=== PATIENT | male | born 1965 | race Caucasian/White ===

== ENCOUNTER 2020-05-13 14:56 | Inpatient (IN) | payer MEDICARE, MEDICAID, SELFPAY ==
[2020-07-07 02:02] VITALS: BMI 47.2
[2020-07-08 07:00] VITALS: BMI 75.5
[2020-07-08 07:03] VITALS: PULSE 83; RESP 18; TEMP 36.6; O2SAT 96
[2020-07-08] MEDS: Divalproex Sodium ER 250 MG TAB.ER.24H 750 MG PO (09:16)
[2020-07-08] MEDS: Aspirin 81 MG TAB.CHEW PO (09:16)
[2020-07-08] MEDS: Cholecalciferol (Vitamin D3) 25 MCG TABLET PO (09:18)
[2020-07-08] MEDS: Docusate Sodium 100 MG CAPSULE PO ×2 (09:18→21:41)
[2020-07-08 09:23] VITALS: BP 139/80; PULSE 83
[2020-07-08] MEDS: Metoprolol Succinate ER 25 MG TAB.ER.24H 37.5 MG PO (09:23)
--- NOTE | 2020-07-08 10:37 | P.PNPSI_ITS ---
Assessment & Plan Assessment & Plan (1) Schizoaffective disorder: Status: Acute Code(s): F25.9 - Schizoaffective disorder, unspecified Assessment and Plan: Haines order changed consider Latuda Greater than 50% of the session was spent on counseling and/or coordination of care Subjective Subjective Reason For Visit: Schizoaffective Interim History: patient less agitated to irritable to go home to disorganized Haines order change Medication Compliance: Yes Mental Status Exam Mental Status Exam Patient Appearance: Unkempt Patient Orientation: Person and Place Level of Consciousness: Awake Patient Behavior: Suspicious, Restless and Distractible Mood Description: Labile and Apprehensive Affect Description: Suspicious, Hostile and Apprehensive Delusions: Paranoid Ideation Thought Process: Incoherent and Illogical Thought Content: Incoherent Judgement: Poor Diagnostics Vital Signs (24Hr): Vital Signs - 24 hr 07/08/20 07:03 07/08/20 09:23 Temperature 97.9 F Pulse Rate 83 83 Respiratory Rate 18 Blood Pressure 139/80 Pulse Oximetry 96 Body Mass Index 47.2 Labs Results: 07/08/20 11:00 07/01/20 08:14 Medications Medications Ambulatory Orders Medication Instructions Recorded albuterol sulfate 2 puff INHALATION Q6H PRN 07/07/20 aspirin 81 mg PO DAILY 07/07/20 atorvastatin 20 mg PO BEDTIME 07/07/20 cholecalciferol (vitamin D3) 25 mcg PO DAILY 07/07/20 docusate sodium 100 mg PO BID 07/07/20 lorazepam 1 mg PO BID 07/07/20 metoprolol succinate 25 mg PO BID 07/07/20 polyethylene glycol 3350 17 g PO DAILY 07/07/20 Allergies Allergies Allergy/AdvReac Type Severity Reaction Status Date / Time lithium [[place]] Allergy Severe TOXICITY Unverified 06/24/20 15:24 thiothixene Allergy Severe SWELLING Unverified 06/24/20 15:24 barium sulfate Allergy Intermediate NAUSEA & Unverified 06/24/20 15:24 [BARIUM SULFATE] VOMITING haloperidol Allergy Intermediate MUSCLE Unverified 06/24/20 15:24 TENSION IN LEGS fluphenazine Allergy Unknown UNKNOWN Unverified 06/24/20 15:24 gabapentin [From NEURONTIN] Allergy Unknown UNKNOWN Unverified 06/24/20 15:24 olanzapine [Zyprexa] AdvReac Unknown confusion Verified 03/30/20 00:00 Barium sulfate Allergy Unknown vomiting Uncoded 05/07/20 00:00 Benadryl Allergy Unknown Uncoded 03/30/20 00:00 benadryl Allergy Unknown urinary Uncoded 05/07/20 00:00 retention Benztropine Mesylate Allergy Unknown Uncoded 03/30/20 00:00 Fluphenazine HCl Allergy Unknown Uncoded 03/30/20 00:00 haldol Allergy Unknown aggitation Uncoded 05/07/20 00:00 lithium Allergy Unknown Uncoded 05/07/20 00:00 Navane Allergy Unknown Uncoded 03/30/20 00:00 navane Allergy Unknown oral Uncoded 05/07/20 00:00 swelling prolixen Allergy Unknown Uncoded 05/07/20 00:00
[2020-07-08 11:36] LABS: MANUAL DIFF FLAG NO
[2020-07-08 11:52] LABS: Basophils Percent Auto 0.5 % (0-2); Eosinophils Absolute Auto 0.1 X10*3/uL (0.0-0.4); Eosinophils Percent Auto 1.9 % (0-4); Hematocrit 43.8 % (42-52); Imm Gran Abs Auto 0.03 X10*3/uL (0.00-0.03); Imm Gran Pct Auto 0.5 % (0.0-0.4); Lymphocytes Absolute Auto 1.6 X10*3/uL (1.2-4.9); Lymphocytes Percent Auto 24.6 % (20-40); Mean Corpuscular Hemoglobin 27.5 pg (27.0-33.0); Mean Corpuscular Volume 86.1 fL (80-98); Mean Platelet Volume 12.7 fL (9.4-12.4); Monocytes Absolute Auto 0.8 X10*3/uL (0.1-1.2); Monocytes Percent Auto 11.9 % (2-11); Neutrophils Absolute Auto 3.9 X10*3/uL (2.0-8.3); Neutrophils Percent Auto 60.6 % (45-73); Platelet Count 120 X10*3/uL (160-400); Red Blood Count 5.09 X10*6/uL (4.60-5.80); Red Cell Distribution Width 14.5 % (11.0-16.0); White Blood Count 6.5 X10*3/uL (4.8-10.8)
[2020-07-08 18:00] VITALS: TEMP 36.4
[2020-07-08] MEDS: cloZAPine 100 MG TABLET 300 MG PO (21:41)
[2020-07-08] MEDS: Topiramate 25 MG TABLET 50 MG PO (21:41)
[2020-07-08] MEDS: Atorvastatin Calcium 20 MG TABLET PO (21:41)
[2020-07-08 21:42] VITALS: BP 108/58; PULSE 96
[2020-07-08] MEDS: Metoprolol Succinate ER 12.5 MG HALFTAB.ER.24H PO (21:42)
[2020-07-08] MEDS: QUEtiapine Fumarate 100 MG TABLET PO (21:42)
[2020-07-08 21:43] VITALS: BP 108/58; PULSE 96
[2020-07-08] MEDS: Metoprolol Succinate ER 25 MG TAB.ER.24H PO (21:43)
[2020-07-09 06:00] VITALS: BP 146/86; PULSE 80; RESP 16; TEMP 36; O2SAT 95
[2020-07-09 08:51] VITALS: BP 146/86; PULSE 80
[2020-07-09] MEDS: Aspirin 81 MG TAB.CHEW PO (08:51)
[2020-07-09] MEDS: Metoprolol Succinate ER 25 MG TAB.ER.24H PO ×2 (08:51→23:01)
[2020-07-09] MEDS: Cholecalciferol (Vitamin D3) 25 MCG TABLET PO (08:52)
[2020-07-09] MEDS: Docusate Sodium 100 MG CAPSULE PO ×2 (08:52→22:59)
[2020-07-09 08:53] VITALS: BP 146/86; PULSE 80
[2020-07-09] MEDS: Metoprolol Succinate ER 12.5 MG HALFTAB.ER.24H PO ×2 (08:53→23:00)
[2020-07-09] MEDS: Divalproex Sodium ER 250 MG TAB.ER.24H 750 MG PO (08:53)
--- NOTE | 2020-07-09 13:14 | PC.NURSE ---
PT STATES HE DOES NOT WANT FLU SHOT.
[2020-07-09] MEDS: Topiramate 25 MG TABLET 50 MG PO (22:59)
[2020-07-09] MEDS: Atorvastatin Calcium 20 MG TABLET PO (22:59)
[2020-07-09 23:00] VITALS: BP 118/75; PULSE 87
[2020-07-09] MEDS: QUEtiapine Fumarate 100 MG TABLET PO (23:00)
[2020-07-09] MEDS: cloZAPine 100 MG TABLET 300 MG PO (23:00)
[2020-07-09 23:01] VITALS: BP 118/75; PULSE 87
--- NOTE | 2020-07-09 23:44 | P.PNPSI_ITS ---
Assessment & Plan Assessment & Plan (1) Schizoaffective disorder: Status: Acute Code(s): F25.9 - Schizoaffective disorder, unspecified Assessment and Plan: patient on clozapine Haines order n ow changed can start low-dose Latuda but would follow EKG DMH and CHD trying to find alternative living situation [place] cm showing change with chronic Depakote Greater than 50% of the session was spent on counseling and/or coordination of care Informed Consent: does not understand Reason for contiued inpatient stay Substantial Risk for: harm to self, inability to function and rapid decompensation Subjective Subjective Reason For Visit: Schizoaffective Subjective Notes: Haines Order Interim History: patient continues to gradually improve able to have a discussion regarding behavior that is preventing discharge rule of CHD and DMH Medication Compliance: Yes Mental Status Exam Mental Status Exam Patient Appearance: Unkempt Patient Orientation: Person and Place Level of Consciousness: Awake Patient Behavior: Suspicious, Restless and Distractible Mood Description: Labile and Apprehensive Affect Description: Suspicious, Hostile and Apprehensive Delusions: Paranoid Ideation Thought Process: Incoherent and Illogical Judgement: Poor Diagnostics Vital Signs (24Hr): Vital Signs - 24 hr 07/09/20 06:00 07/09/20 08:51 07/09/20 08:53 Temperature 96.8 F Pulse Rate 80 80 80 Respiratory Rate 16 Blood Pressure 146/86 H 146/86 H 146/86 H Pulse Oximetry 95 07/09/20 23:00 07/09/20 23:01 Temperature Pulse Rate 87 87 Respiratory Rate Blood Pressure 118/75 118/75 Pulse Oximetry Body Mass Index 75.5 Labs Results: 07/08/20 11:00 07/01/20 08:14 Labs: Laboratory Results - last 48 hr 07/08/20 11:00 WBC 6.5 RBC 5.09 Hgb 14.0 Hct 43.8 MCV 86.1 MCH 27.5 MCHC 32.0 RDW 14.5 Plt Count 120 L MPV 12.7 H Immature Gran % (Auto) 0.5 H Neut % (Auto) 60.6 Lymph % (Auto) 24.6 [place] % (Auto) 11.9 H Eos % (Auto) 1.9 Baso % (Auto) 0.5 Neut # (Auto) 3.9 Lymph # (Auto) 1.6 [place] # (Auto) 0.8 Eos # (Auto) 0.1 Baso # (Auto) 0.0 Abs Immat Gran (auto) 0.03 Absolute Nucleated RBC 0.000 Nucleated RBC % (auto) 0.0 Medications Medications Current Medications Generic Name Dose Route Start Last Admin Trade Name Freq PRN Reason Stop Dose Admin Acetaminophen 650 mg 07/08/20 00:01 Acetaminophen 325 Mg Tablet PO Q6H PRN HEADACHE/PAIN.MILD (SCALE 1-3) Al Hydroxide/Mg Hydroxide 30 ml 07/08/20 00:01 Magnesium Hydrox/Alum Hydrox 30 Ml Oral.Susp PO Q6H PRN HEARTBURN/NAUSEA Albuterol Sulfate 2 puff 07/08/20 00:01 Albuterol Sulfate 90 Mcg 8 Gm Inhaler INHALE RQ6H PRN Wheezing Aspirin 81 mg 07/08/20 09:00 07/09/20 08:51 Aspirin 81 Mg Tab.Chew PO 81 mg DAILY OZZY Administration Atorvastatin Calcium 20 mg 07/08/20 21:00 07/09/20 22:59 Atorvastatin Calcium 20 Mg Tablet PO 20 mg BEDTIME OZZY Administration Clozapine 300 mg 07/08/20 21:00 07/09/20 23:00 Clozapine 100 Mg Tablet PO 300 mg BEDTIME OZZY Administration Divalproex Sodium 750 mg 07/08/20 09:00 07/09/20 08:53 Divalproex Sodium Er 250 Mg Tab.Er.24h PO 750 mg DAILY OZZY Administration Docusate Sodium 100 mg 07/08/20 08:30 07/09/20 22:59 Docusate Sodium 100 Mg Capsule PO 100 mg BID@ OZZY Administration Hydroxyzine HCl 25 mg 07/08/20 00:01 Hydroxyzine Hcl 25 Mg Tablet PO BEDTIME MRX1 PRN NIGHT TIME ANXIETY Magnesium Hydroxide 30 ml 07/08/20 00:01 Milk Of Magnesia 30 Ml Oral.Susp PO Q24H PRN Constipation Metoprolol Succinate 25 mg 07/08/20 09:45 07/09/20 23:01 Metoprolol Succinate Er 25 Mg Tab.Er.24h PO 25 mg BID@829,2099 OZZY Administration Protocol Metoprolol Succinate 12.5 mg 07/08/20 09:37 07/09/20 23:00 Metoprolol Succinate Er 12.5 Mg Halftab.Er.24h PO 12.5 mg BID@829,2099 [facility] Administration Protocol Nicotine Polacrilex 2 mg 07/08/20 00:01 Nicotine Polacrilex 2 Mg Gum BUCCAL Q2H PRN Nicotine Cravings Quetiapine Fumarate 100 mg 07/08/20 21:00 07/09/20 23:00 Quetiapine Fumarate 100 Mg Tablet PO 100 mg BEDTIME MRX1 OZZY Administration Quetiapine Fumarate 100 mg 07/08/20 00:01 Quetiapine Fumarate 100 Mg Tablet PO Q4H PRN anxiety/restlessness Topiramate 50 mg 07/08/20 21:00 07/09/20 22:59 Topiramate 25 Mg Tablet PO 50 mg BEDTIME OZZY Administration Trazodone HCl 50 mg 07/08/20 21:00 Trazodone Hcl 50 Mg Tablet PO BEDTIME MRX1 PRN Insomnia Vitamin D 25 mcg 07/08/20 09:00 07/09/20 08:52 Cholecalciferol (Vitamin D3) 25 Mcg Tablet PO 25 mcg DAILY OZZY Administration Allergies Allergies Allergy/AdvReac Type Severity Reaction Status Date / Time lithium [[place]] Allergy Severe TOXICITY Unverified 06/24/20 15:24 thiothixene Allergy Severe SWELLING Unverified 06/24/20 15:24 barium sulfate Allergy Intermediate NAUSEA & Unverified 06/24/20 15:24 [BARIUM SULFATE] VOMITING haloperidol Allergy Intermediate MUSCLE Unverified 06/24/20 15:24 TENSION IN LEGS fluphenazine Allergy Unknown UNKNOWN Unverified 06/24/20 15:24 gabapentin [From NEURONTIN] Allergy Unknown UNKNOWN Unverified 06/24/20 15:24 olanzapine [Zyprexa] AdvReac Unknown confusion Verified 03/30/20 00:00 Barium sulfate Allergy Unknown vomiting Uncoded 05/07/20 00:00 Benadryl Allergy Unknown Uncoded 03/30/20 00:00 benadryl Allergy Unknown urinary Uncoded 05/07/20 00:00 retention Benztropine Mesylate Allergy Unknown Uncoded 03/30/20 00:00 Fluphenazine HCl Allergy Unknown Uncoded 03/30/20 00:00 haldol Allergy Unknown aggitation Uncoded 05/07/20 00:00 lithium Allergy Unknown Uncoded 05/07/20 00:00 Navane Allergy Unknown Uncoded 03/30/20 00:00 navane Allergy Unknown oral Uncoded 05/07/20 00:00 swelling prolixen Allergy Unknown Uncoded 05/07/20 00:00
[2020-07-10 06:00] VITALS: BP 146/81; PULSE 77; RESP 20; TEMP 36.5
[2020-07-10] MEDS: Aspirin 81 MG TAB.CHEW PO (08:47)
[2020-07-10] MEDS: Divalproex Sodium ER 250 MG TAB.ER.24H 750 MG PO (08:47)
[2020-07-10] MEDS: Cholecalciferol (Vitamin D3) 25 MCG TABLET PO (08:48)
[2020-07-10] MEDS: Docusate Sodium 100 MG CAPSULE PO ×2 (08:48→23:45)
[2020-07-10 08:49] VITALS: BP 146/81; PULSE 77
[2020-07-10] MEDS: Metoprolol Succinate ER 25 MG TAB.ER.24H PO ×2 (08:49→23:47)
[2020-07-10 11:17] VITALS: BP 146/81; PULSE 77
[2020-07-10] MEDS: Metoprolol Succinate ER 12.5 MG HALFTAB.ER.24H PO ×2 (11:17→23:46)
--- NOTE | 2020-07-10 12:13 | P.PNPSI_ITS ---
Assessment & Plan Assessment & Plan (1) Schizoaffective disorder: Status: Acute Code(s): F25.9 - Schizoaffective disorder, unspecified Greater than 50% of the session was spent on counseling and/or coordination of care Subjective Subjective Date of Service: 07/10/20 Reason For Visit: Schizoaffective Subjective Notes: Conditional Voluntary Interim History: Doing better, more cooperative with staff, taking medications regularly- responds better if you are calm and not surprise him Medication Compliance: Yes Side effects from medications: No Attending Groups: No Review of Systems Acute medical concerns: No low platlets Medical Review of Systems: unchanged Review of Systems: no xs sedation no abnormal movements Mental Status Exam Mental Status Exam Narrative: pt lying in bed mildly disheveled grooming wearing daron Patient Appearance: Disheveled Patient Orientation: Person and Place Level of Consciousness: Awake and Alert Patient Behavior: Normal for Patient, Passive, Isolative, Good Eye Contact and Uncooperative (minimally cooperative- but polite) Hallucinations: None Delusions: Not Present Thought Process: Goal Oriented Thought Content: positive for Poverty of Content Judgement: Fair Diagnostics Vital Signs (24Hr): Vital Signs - 24 hr 07/09/20 23:00 07/09/20 23:01 07/10/20 06:00 Temperature 97.7 F Pulse Rate 87 87 77 Respiratory Rate 20 Blood Pressure 118/75 118/75 146/81 H 07/10/20 08:49 07/10/20 11:17 Temperature Pulse Rate 77 77 Respiratory Rate Blood Pressure 146/81 H 146/81 H Body Mass Index 75.5 Labs Results: 07/08/20 11:00 07/01/20 08:14 Labs: platelets low Medications Medications Current Medications Generic Name Dose Route Start Last Admin Trade Name Freq PRN Reason Stop Dose Admin Acetaminophen 650 mg 07/08/20 00:01 Acetaminophen 325 Mg Tablet PO Q6H PRN HEADACHE/PAIN.MILD (SCALE 1-3) Al Hydroxide/Mg Hydroxide 30 ml 07/08/20 00:01 Magnesium Hydrox/Alum Hydrox 30 Ml Oral.Susp PO Q6H PRN HEARTBURN/NAUSEA Albuterol Sulfate 2 puff 07/08/20 00:01 Albuterol Sulfate 90 Mcg 8 Gm Inhaler INHALE RQ6H PRN Wheezing Aspirin 81 mg 07/08/20 09:00 07/10/20 08:47 Aspirin 81 Mg Tab.Chew PO 81 mg DAILY OZZY Administration Atorvastatin Calcium 20 mg 07/08/20 21:00 07/09/20 22:59 Atorvastatin Calcium 20 Mg Tablet PO 20 mg BEDTIME OZZY Administration Clozapine 300 mg 07/08/20 21:00 07/09/20 23:00 Clozapine 100 Mg Tablet PO 300 mg BEDTIME OZZY Administration Divalproex Sodium 750 mg 07/08/20 09:00 07/10/20 08:47 Divalproex Sodium Er 250 Mg Tab.Er.24h PO 750 mg DAILY OZZY Administration Docusate Sodium 100 mg 07/08/20 08:30 07/10/20 08:48 Docusate Sodium 100 Mg Capsule PO 100 mg BID@829,2099 OZZY Administration Hydroxyzine HCl 25 mg 07/08/20 00:01 Hydroxyzine Hcl 25 Mg Tablet PO BEDTIME MRX1 PRN NIGHT TIME ANXIETY Magnesium Hydroxide 30 ml 07/08/20 00:01 Milk Of Magnesia 30 Ml Oral.Susp PO Q24H PRN Constipation Metoprolol Succinate 25 mg 07/08/20 09:45 07/10/20 08:49 Metoprolol Succinate Er 25 Mg Tab.Er.24h PO 25 mg BID@829,2099 [facility] Administration Protocol Metoprolol Succinate 12.5 mg 07/08/20 09:37 07/10/20 11:17 Metoprolol Succinate Er 12.5 Mg Halftab.Er.24h PO 12.5 mg BID@829,2099 [facility] Administration Protocol Nicotine Polacrilex 2 mg 07/08/20 00:01 Nicotine Polacrilex 2 Mg Gum BUCCAL Q2H PRN Nicotine Cravings Quetiapine Fumarate 100 mg 07/08/20 21:00 07/10/20 05:06 Quetiapine Fumarate 100 Mg Tablet PO Not Given BEDTIME MRX1 OZZY Quetiapine Fumarate 100 mg 07/08/20 00:01 Quetiapine Fumarate 100 Mg Tablet PO Q4H PRN anxiety/restlessness Topiramate 50 mg 07/08/20 21:00 07/09/20 22:59 Topiramate 25 Mg Tablet PO 50 mg BEDTIME OZZY Administration Trazodone HCl 50 mg 07/08/20 21:00 Trazodone Hcl 50 Mg Tablet PO BEDTIME MRX1 PRN Insomnia Vitamin D 25 mcg 07/08/20 09:00 07/10/20 08:48 Cholecalciferol (Vitamin D3) 25 Mcg Tablet PO 25 mcg DAILY OZZY Administration Allergies Allergies Allergy/AdvReac Type Severity Reaction Status Date / Time lithium [[place]] Allergy Severe TOXICITY Unverified 06/24/20 15:24 thiothixene Allergy Severe SWELLING Unverified 06/24/20 15:24 barium sulfate Allergy Intermediate NAUSEA & Unverified 06/24/20 15:24 [BARIUM SULFATE] VOMITING haloperidol Allergy Intermediate MUSCLE Unverified 06/24/20 15:24 TENSION IN LEGS fluphenazine Allergy Unknown UNKNOWN Unverified 06/24/20 15:24 gabapentin [From NEURONTIN] Allergy Unknown UNKNOWN Unverified 06/24/20 15:24 olanzapine [Zyprexa] AdvReac Unknown confusion Verified 03/30/20 00:00 Barium sulfate Allergy Unknown vomiting Uncoded 05/07/20 00:00 Benadryl Allergy Unknown Uncoded 03/30/20 00:00 benadryl Allergy Unknown urinary Uncoded 05/07/20 00:00 retention Benztropine Mesylate Allergy Unknown Uncoded 03/30/20 00:00 Fluphenazine HCl Allergy Unknown Uncoded 03/30/20 00:00 haldol Allergy Unknown aggitation Uncoded 05/07/20 00:00 lithium Allergy Unknown Uncoded 05/07/20 00:00 Navane Allergy Unknown Uncoded 03/30/20 00:00 navane Allergy Unknown oral Uncoded 05/07/20 00:00 swelling prolixen Allergy Unknown Uncoded 05/07/20 00:00
[2020-07-10] MEDS: QUEtiapine Fumarate 100 MG TABLET PO (23:45)
[2020-07-10] MEDS: Atorvastatin Calcium 20 MG TABLET PO (23:45)
[2020-07-10] MEDS: Topiramate 25 MG TABLET 50 MG PO (23:45)
[2020-07-10 23:46] VITALS: BP 115/67; PULSE 90
[2020-07-10] MEDS: cloZAPine 100 MG TABLET 300 MG PO (23:46)
[2020-07-10 23:47] VITALS: BP 115/67; PULSE 90
[2020-07-10 23:49] VITALS: BP 115/67; PULSE 90; TEMP 36.3
[2020-07-11 00:29] VITALS: TEMP 36.3
[2020-07-11 06:25] VITALS: BP 130/66; PULSE 80; RESP 18; TEMP 36.2; O2SAT 96
[2020-07-11] MEDS: Divalproex Sodium ER 250 MG TAB.ER.24H 750 MG PO (08:48)
[2020-07-11] MEDS: Aspirin 81 MG TAB.CHEW PO (08:48)
[2020-07-11 08:49] VITALS: BP 130/66; PULSE 80
[2020-07-11] MEDS: Metoprolol Succinate ER 25 MG TAB.ER.24H PO ×2 (08:49→22:45)
[2020-07-11] MEDS: Cholecalciferol (Vitamin D3) 25 MCG TABLET PO (08:49)
[2020-07-11] MEDS: Docusate Sodium 100 MG CAPSULE PO ×2 (08:49→22:46)
[2020-07-11 08:50] VITALS: BP 130/66; PULSE 80
[2020-07-11] MEDS: Metoprolol Succinate ER 12.5 MG HALFTAB.ER.24H PO ×2 (08:50→22:45)
[2020-07-11 11:56] LABS: Monocytes Absolute Auto 0.7 X10*3/uL (0.1-1.2)
[2020-07-11 11:58] LABS: Basophils Percent Auto 0.6 % (0-2); Eosinophils Absolute Auto 0.1 X10*3/uL (0.0-0.4); Eosinophils Percent Auto 1.7 % (0-4); Hematocrit 45.5 % (42-52); Hemoglobin 14.4 g/dl (14.0-18.0); Imm Gran Abs Auto 0.04 X10*3/uL (0.00-0.03); Imm Gran Pct Auto 0.6 % (0.0-0.4); Lymphocytes Absolute Auto 1.5 X10*3/uL (1.2-4.9); Lymphocytes Percent Auto 23.7 % (20-40); Mean Corpuscular HGB Conc 31.6 g/dl (31.0-36.0); Mean Corpuscular Hemoglobin 27.1 pg (27.0-33.0); Mean Corpuscular Volume 85.5 fL (80-98); Mean Platelet Volume 11.6 fL (9.4-12.4); Monocytes Percent Auto 10.7 % (2-11); Neutrophils Percent Auto 62.7 % (45-73); Platelet Count 133 X10*3/uL (160-400); Red Blood Count 5.32 X10*6/uL (4.60-5.80); Red Cell Distribution Width 14.5 % (11.0-16.0); White Blood Count 6.3 X10*3/uL (4.8-10.8)
[2020-07-11 11:59] LABS: MANUAL DIFF FLAG NO
--- NOTE | 2020-07-11 17:00 | P.PNPSI_ITS ---
Assessment & Plan Assessment & Plan (1) Schizoaffective disorder: Status: Acute Code(s): F25.9 - Schizoaffective disorder, unspecified Greater than 50% of the session was spent on counseling and/or coordination of care Subjective Subjective Date of Service: 07/11/20 Reason For Visit: Schizoaffective Subjective Notes: Conditional Voluntary Interim History: Pt reports he is fine, and dismisses me as soon as I don't have information about him about dc plan, he says he is taking his depakote: even if he isn't supposed to be on it can't say why he isn't supposed to also agreed to blood draw today - otherwise was mute with nursing for the last day- angry about fall thru of dc plan with CHD. cooperative Medication Compliance: Yes Side effects from medications: No Attending Groups: No Review of Systems Acute medical concerns: No Medical Review of Systems: unchanged Mental Status Exam Mental Status Exam Narrative: somewhat disheveled limited engagement in mileu, Patient Appearance: Unkempt Patient Orientation: Person and Place Level of Consciousness: Awake and Alert Patient Behavior: Normal for Patient Mood Description: Apathetic Affect Description: Apathetic Patient Cognition Impaired: No Ability to Follow Directions: Fair Speech Pattern: Normal for Patient and Mumbled Thought Process: Distracted Thought Content: positive for Poverty of Content Judgement: Poor Diagnostics Vital Signs (24Hr): Vital Signs - 24 hr 07/10/20 23:46 07/10/20 23:47 07/10/20 23:49 Temperature 97.4 F Pulse Rate 90 90 90 Respiratory Rate Blood Pressure 115/67 115/67 115/67 Pulse Oximetry 07/11/20 00:29 07/11/20 06:25 07/11/20 08:49 Temperature 97.4 F 97.2 F Pulse Rate 80 80 Respiratory Rate 18 Blood Pressure 130/66 130/66 Pulse Oximetry 96 07/11/20 08:50 Temperature Pulse Rate 80 Respiratory Rate Blood Pressure 130/66 Pulse Oximetry Body Mass Index Labs Results: 07/11/20 11:39 07/01/20 08:14 Labs: Laboratory Results - last 48 hr 07/11/20 11:39 WBC 6.3 RBC 5.32 Hgb 14.4 Hct 45.5 MCV 85.5 MCH 27.1 MCHC 31.6 RDW 14.5 Plt Count 133 L MPV 11.6 Immature Gran % (Auto) 0.6 H Neut % (Auto) 62.7 Lymph % (Auto) 23.7 [place] % (Auto) 10.7 Eos % (Auto) 1.7 Baso % (Auto) 0.6 Neut # (Auto) 4.0 Lymph # (Auto) 1.5 [place] # (Auto) 0.7 Eos # (Auto) 0.1 Baso # (Auto) 0.0 Abs Immat Gran (auto) 0.04 H Absolute Nucleated RBC 0.000 Nucleated RBC % (auto) 0.0 Medications Medications Current Medications Generic Name Dose Route Start Last Admin Trade Name Freq PRN Reason Stop Dose Admin Acetaminophen 650 mg 07/08/20 00:01 Acetaminophen 325 Mg Tablet PO Q6H PRN HEADACHE/PAIN.MILD (SCALE 1-3) Al Hydroxide/Mg Hydroxide 30 ml 07/08/20 00:01 Magnesium Hydrox/Alum Hydrox 30 Ml Oral.Susp PO Q6H PRN HEARTBURN/NAUSEA Albuterol Sulfate 2 puff 07/08/20 00:01 Albuterol Sulfate 90 Mcg 8 Gm Inhaler INHALE RQ6H PRN Wheezing Aspirin 81 mg 07/08/20 09:00 07/11/20 08:48 Aspirin 81 Mg Tab.Chew PO 81 mg DAILY OZZY Administration Atorvastatin Calcium 20 mg 07/08/20 21:00 07/10/20 23:45 Atorvastatin Calcium 20 Mg Tablet PO 20 mg BEDTIME OZZY Administration Clozapine 300 mg 07/08/20 21:00 07/10/20 23:46 Clozapine 100 Mg Tablet PO 300 mg BEDTIME OZZY Administration Divalproex Sodium 750 mg 07/08/20 09:00 07/11/20 08:48 Divalproex Sodium Er 250 Mg Tab.Er.24h PO 750 mg DAILY OZZY Administration Docusate Sodium 100 mg 07/08/20 08:30 07/11/20 08:49 Docusate Sodium 100 Mg Capsule PO 100 mg BID@0830,2100 OZZY Administration Hydroxyzine HCl 25 mg 07/08/20 00:01 Hydroxyzine Hcl 25 Mg Tablet PO BEDTIME MRX1 PRN NIGHT TIME ANXIETY Magnesium Hydroxide 30 ml 07/08/20 00:01 Milk Of Magnesia 30 Ml Oral.Susp PO Q24H PRN Constipation Metoprolol Succinate 25 mg 07/08/20 09:45 07/11/20 08:49 Metoprolol Succinate Er 25 Mg Tab.Er.24h PO 25 mg BID@0830,2100 OZZY Administration Protocol Metoprolol Succinate 12.5 mg 07/08/20 09:37 07/11/20 08:50 Metoprolol Succinate Er 12.5 Mg Halftab.Er.24h PO 12.5 mg BID@0830,2100 OZZY Administration Protocol Nicotine Polacrilex 2 mg 07/08/20 00:01 Nicotine Polacrilex 2 Mg Gum BUCCAL Q2H PRN Nicotine Cravings Quetiapine Fumarate 100 mg 07/08/20 21:00 07/11/20 09:02 Quetiapine Fumarate 100 Mg Tablet PO Not Given BEDTIME MRX1 OZZY Quetiapine Fumarate 100 mg 07/08/20 00:01 Quetiapine Fumarate 100 Mg Tablet PO Q4H PRN anxiety/restlessness Topiramate 50 mg 07/08/20 21:00 07/10/20 23:45 Topiramate 25 Mg Tablet PO 50 mg BEDTIME OZZY Administration Trazodone HCl 50 mg 07/08/20 21:00 Trazodone Hcl 50 Mg Tablet PO BEDTIME MRX1 PRN Insomnia Vitamin D 25 mcg 07/08/20 09:00 07/11/20 08:49 Cholecalciferol (Vitamin D3) 25 Mcg Tablet PO 25 mcg DAILY OZZY Administration Allergies Allergies Allergy/AdvReac Type Severity Reaction Status Date / Time lithium [[place]] Allergy Severe TOXICITY Unverified 06/24/20 15:24 thiothixene Allergy Severe SWELLING Unverified 06/24/20 15:24 barium sulfate Allergy Intermediate NAUSEA & Unverified 06/24/20 15:24 [BARIUM SULFATE] VOMITING haloperidol Allergy Intermediate MUSCLE Unverified 06/24/20 15:24 TENSION IN LEGS fluphenazine Allergy Unknown UNKNOWN Unverified 06/24/20 15:24 gabapentin [From NEURONTIN] Allergy Unknown UNKNOWN Unverified 06/24/20 15:24 olanzapine [Zyprexa] AdvReac Unknown confusion Verified 03/30/20 00:00 Barium sulfate Allergy Unknown vomiting Uncoded 05/07/20 00:00 Benadryl Allergy Unknown Uncoded 03/30/20 00:00 benadryl Allergy Unknown urinary Uncoded 05/07/20 00:00 retention Benztropine Mesylate Allergy Unknown Uncoded 03/30/20 00:00 Fluphenazine HCl Allergy Unknown Uncoded 03/30/20 00:00 haldol Allergy Unknown aggitation Uncoded 05/07/20 00:00 lithium Allergy Unknown Uncoded 05/07/20 00:00 Navane Allergy Unknown Uncoded 03/30/20 00:00 navane Allergy Unknown oral Uncoded 05/07/20 00:00 swelling prolixen Allergy Unknown Uncoded 05/07/20 00:00
[2020-07-11] MEDS: QUEtiapine Fumarate 100 MG TABLET PO (22:44)
[2020-07-11] MEDS: cloZAPine 100 MG TABLET 300 MG PO (22:44)
[2020-07-11 22:45] VITALS: BP 143/95; PULSE 75
[2020-07-11] MEDS: Atorvastatin Calcium 20 MG TABLET PO (22:45)
[2020-07-11] MEDS: Topiramate 25 MG TABLET 50 MG PO (22:45)
[2020-07-12 06:30] VITALS: BP 144/74; PULSE 77; RESP 18; TEMP 36.2
[2020-07-12 09:16] VITALS: BP 144/74; PULSE 77
[2020-07-12] MEDS: Metoprolol Succinate ER 25 MG TAB.ER.24H PO ×2 (09:16→22:57)
[2020-07-12] MEDS: Aspirin 81 MG TAB.CHEW PO (09:16)
[2020-07-12 09:17] VITALS: BP 144/74; PULSE 77
[2020-07-12] MEDS: Cholecalciferol (Vitamin D3) 25 MCG TABLET PO (09:17)
[2020-07-12] MEDS: Divalproex Sodium ER 250 MG TAB.ER.24H 750 MG PO (09:17)
[2020-07-12] MEDS: Docusate Sodium 100 MG CAPSULE PO ×2 (09:17→22:53)
[2020-07-12] MEDS: Metoprolol Succinate ER 12.5 MG HALFTAB.ER.24H PO ×2 (09:17→22:53)
--- NOTE | 2020-07-12 21:53 | HO.PSYCHPN ---
Assessment & Plan Assessment & Plan (1) Schizoaffective disorder: Status: Acute Code(s): F25.9 - Schizoaffective disorder, unspecified Assessment and Plan: the patient seems more stable on Depakote now Greater than 50% of the session was spent on counseling and/or coordination of care Subjective Subjective Reason For Visit: Schizoaffective Subjective Notes: Haines Order Interim History: patient calmer not combative Medication Compliance: Yes Side effects from medications: Yes Mental Status Exam Mental Status Exam Narrative: somewhat disheveled limited engagement in [employer], Patient Appearance: Unkempt Patient Orientation: Person and Place Level of Consciousness: Awake and Alert Patient Behavior: Normal for Patient Mood Description: Apathetic Affect Description: Apathetic Patient Cognition Impaired: No Ability to Follow Directions: Fair Speech Pattern: Normal for Patient and Mumbled Thought Process: Distracted Thought Content: positive for Poverty of Content Judgement: Poor Diagnostics Vital Signs (24Hr): Vital Signs - 24 hr 07/11/20 22:45 07/12/20 06:30 07/12/20 09:16 Temperature 97.2 F Pulse Rate 75 77 77 Respiratory Rate 18 Blood Pressure 143/95 H 144/74 H 144/74 H 07/12/20 09:17 Temperature Pulse Rate 77 Respiratory Rate Blood Pressure 144/74 H Body Mass Index 75.5 Labs Results: 07/11/20 11:39 07/01/20 08:14 Labs: Laboratory Results - last 48 hr 07/11/20 11:39 WBC 6.3 RBC 5.32 Hgb 14.4 Hct 45.5 MCV 85.5 MCH 27.1 MCHC 31.6 RDW 14.5 Plt Count 133 L MPV 11.6 Immature Gran % (Auto) 0.6 H Neut % (Auto) 62.7 Lymph % (Auto) 23.7 [place] % (Auto) 10.7 Eos % (Auto) 1.7 Baso % (Auto) 0.6 Neut # (Auto) 4.0 Lymph # (Auto) 1.5 [place] # (Auto) 0.7 Eos # (Auto) 0.1 Baso # (Auto) 0.0 Abs Immat Gran (auto) 0.04 H Absolute Nucleated RBC 0.000 Nucleated RBC % (auto) 0.0 Medications Medications Current Medications Generic Name Dose Route Start Last Admin Trade Name Freq PRN Reason Stop Dose Admin Acetaminophen 650 mg 07/08/20 00:01 Acetaminophen 325 Mg Tablet PO Q6H PRN HEADACHE/PAIN.MILD (SCALE 1-3) Al Hydroxide/Mg Hydroxide 30 ml 07/08/20 00:01 Magnesium Hydrox/Alum Hydrox 30 Ml Oral.Susp PO Q6H PRN HEARTBURN/NAUSEA Albuterol Sulfate 2 puff 07/08/20 00:01 Albuterol Sulfate 90 Mcg 8 Gm Inhaler INHALE RQ6H PRN Wheezing Aspirin 81 mg 07/08/20 09:00 07/12/20 09:16 Aspirin 81 Mg Tab.Chew PO 81 mg DAILY OZZY Administration Atorvastatin Calcium 20 mg 07/08/20 21:00 07/11/20 22:45 Atorvastatin Calcium 20 Mg Tablet PO 20 mg BEDTIME OZZY Administration Clozapine 300 mg 07/08/20 21:00 07/11/20 22:44 Clozapine 100 Mg Tablet PO 300 mg BEDTIME OZZY Administration Divalproex Sodium 750 mg 07/08/20 09:00 07/12/20 09:17 Divalproex Sodium Er 250 Mg Tab.Er.24h PO 750 mg DAILY OZZY Administration Docusate Sodium 100 mg 07/08/20 08:30 07/12/20 09:17 Docusate Sodium 100 Mg Capsule PO 100 mg BID@ OZZY Administration Hydroxyzine HCl 25 mg 07/08/20 00:01 Hydroxyzine Hcl 25 Mg Tablet PO BEDTIME MRX1 PRN NIGHT TIME ANXIETY Magnesium Hydroxide 30 ml 07/08/20 00:01 Milk Of Magnesia 30 Ml Oral.Susp PO Q24H PRN Constipation Metoprolol Succinate 25 mg 07/08/20 09:45 07/12/20 09:16 Metoprolol Succinate Er 25 Mg Tab.Er.24h PO 25 mg BID@ [facility] Administration Protocol Metoprolol Succinate 12.5 mg 07/08/20 09:37 07/12/20 09:17 Metoprolol Succinate Er 12.5 Mg Halftab.Er.24h PO 12.5 mg BID@ [facility] Administration Protocol Nicotine Polacrilex 2 mg 07/08/20 00:01 Nicotine Polacrilex 2 Mg Gum BUCCAL Q2H PRN Nicotine Cravings Quetiapine Fumarate 100 mg 07/08/20 21:00 07/12/20 05:58 Quetiapine Fumarate 100 Mg Tablet PO Not Given BEDTIME MRX1 OZZY Quetiapine Fumarate 100 mg 07/08/20 00:01 Quetiapine Fumarate 100 Mg Tablet PO Q4H PRN anxiety/restlessness Topiramate 50 mg 07/08/20 21:00 07/11/20 22:45 Topiramate 25 Mg Tablet PO 50 mg BEDTIME OZZY Administration Trazodone HCl 50 mg 07/08/20 21:00 Trazodone Hcl 50 Mg Tablet PO BEDTIME MRX1 PRN Insomnia Vitamin D 25 mcg 07/08/20 09:00 07/12/20 09:17 Cholecalciferol (Vitamin D3) 25 Mcg Tablet PO 25 mcg DAILY OZZY Administration Allergies Allergies Allergy/AdvReac Type Severity Reaction Status Date / Time lithium [[place]] Allergy Severe TOXICITY Unverified 06/24/20 15:24 thiothixene Allergy Severe SWELLING Unverified 06/24/20 15:24 barium sulfate Allergy Intermediate NAUSEA & Unverified 06/24/20 15:24 [BARIUM SULFATE] VOMITING haloperidol Allergy Intermediate MUSCLE Unverified 06/24/20 15:24 TENSION IN LEGS fluphenazine Allergy Unknown UNKNOWN Unverified 06/24/20 15:24 gabapentin [From NEURONTIN] Allergy Unknown UNKNOWN Unverified 06/24/20 15:24 olanzapine [Zyprexa] AdvReac Unknown confusion Verified 03/30/20 00:00 Barium sulfate Allergy Unknown vomiting Uncoded 05/07/20 00:00 Benadryl Allergy Unknown Uncoded 03/30/20 00:00 benadryl Allergy Unknown urinary Uncoded 05/07/20 00:00 retention Benztropine Mesylate Allergy Unknown Uncoded 03/30/20 00:00 Fluphenazine HCl Allergy Unknown Uncoded 03/30/20 00:00 haldol Allergy Unknown aggitation Uncoded 05/07/20 00:00 lithium Allergy Unknown Uncoded 05/07/20 00:00 Navane Allergy Unknown Uncoded 03/30/20 00:00 navane Allergy Unknown oral Uncoded 05/07/20 00:00 swelling prolixen Allergy Unknown Uncoded 05/07/20 00:00
[2020-07-12] MEDS: cloZAPine 100 MG TABLET 300 MG PO (22:52)
[2020-07-12 22:53] VITALS: BP 143/87; PULSE 75
[2020-07-12] MEDS: QUEtiapine Fumarate 100 MG TABLET PO (22:53)
[2020-07-12] MEDS: Topiramate 25 MG TABLET 50 MG PO (22:53)
[2020-07-12] MEDS: Atorvastatin Calcium 20 MG TABLET PO (22:53)
[2020-07-12 22:57] VITALS: BP 143/87; PULSE 75; TEMP 37.1
[2020-07-13 06:40] VITALS: BP 133/69; PULSE 78; RESP 18; TEMP 36.5
[2020-07-13] MEDS: Cholecalciferol (Vitamin D3) 25 MCG TABLET PO (10:53)
[2020-07-13] MEDS: Divalproex Sodium ER 250 MG TAB.ER.24H 750 MG PO (10:53)
[2020-07-13] MEDS: Aspirin 81 MG TAB.CHEW PO (10:53)
[2020-07-13 10:54] VITALS: BP 133/64; PULSE 78
[2020-07-13] MEDS: Docusate Sodium 100 MG CAPSULE PO ×2 (10:54→19:59)
[2020-07-13] MEDS: Metoprolol Succinate ER 25 MG TAB.ER.24H PO ×2 (10:54→20:00)
[2020-07-13 10:56] VITALS: BP 133/64; PULSE 78
[2020-07-13] MEDS: Metoprolol Succinate ER 12.5 MG HALFTAB.ER.24H PO ×2 (10:56→20:02)
[2020-07-13 18:00] VITALS: BP 124/69; PULSE 80; TEMP 36.7
[2020-07-13] MEDS: Topiramate 25 MG TABLET 50 MG PO (19:57)
[2020-07-13] MEDS: Atorvastatin Calcium 20 MG TABLET PO (19:59)
[2020-07-13] MEDS: QUEtiapine Fumarate 100 MG TABLET PO (19:59)
[2020-07-13 20:00] VITALS: BP 124/69; PULSE 80
[2020-07-13 20:02] VITALS: BP 124/69; PULSE 80
[2020-07-13] MEDS: cloZAPine 100 MG TABLET 300 MG PO (20:02)
--- NOTE | 2020-07-13 21:24 | P.PNPSI_ITS ---
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) 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 Assessment and Plan: CONTINUE CLOZAPINE I HAVE MAINTAIN 300 MG DOSE Greater than 50% of the session was spent on counseling and/or coordination of care Subjective Subjective Reason For Visit: Schizoaffective Subjective Notes: Haines Order and Conditional Voluntary Interim History: PATIENT HAS BEEN REFERRED TO RESPITE HE IS CALMER LESS AGITATED AND IS ON CLOZAPINE AND DEPAKOTE I HAVE NOT ADDED IN LATUDA GIVEN HIS PRESENT S TABILITY OVER THE PAST FEW DAYS Medication Compliance: Yes Side effects from medications: Yes Attending Groups: No Mental Status Exam Mental Status Exam Narrative: somewhat disheveled limited engagement in [employer], Patient Appearance: Unkempt Patient Orientation: Person and Place Level of Consciousness: Awake and Alert Patient Behavior: Normal for Patient Mood Description: Apathetic Affect Description: Apathetic Patient Cognition Impaired: No Ability to Follow Directions: Fair Speech Pattern: Normal for Patient and Mumbled Thought Process: Distracted Thought Content: positive for Poverty of Content Judgement: Poor Diagnostics Vital Signs (24Hr): Vital Signs - 24 hr 07/12/20 22:53 07/12/20 22:57 07/13/20 06:40 Temperature 98.7 F 97.7 F Pulse Rate 75 75 78 Respiratory Rate 18 Blood Pressure 143/87 H 143/87 H 133/69 07/13/20 10:54 07/13/20 10:56 07/13/20 20:00 Temperature Pulse Rate 78 78 80 Respiratory Rate Blood Pressure 133/64 133/64 124/69 07/13/20 20:02 Temperature Pulse Rate 80 Respiratory Rate Blood Pressure 124/69 Body Mass Index 75.5 Labs Results: 07/14/20 10:04 07/01/20 08:14 Medications Medications Current Medications Generic Name Dose Route Start Last Admin Trade Name Freq PRN Reason Stop Dose Admin Acetaminophen 650 mg 07/08/20 00:01 Acetaminophen 325 Mg Tablet PO Q6H PRN HEADACHE/PAIN.MILD (SCALE 1-3) Al Hydroxide/Mg Hydroxide 30 ml 07/08/20 00:01 Magnesium Hydrox/Alum Hydrox 30 Ml Oral.Susp PO Q6H PRN HEARTBURN/NAUSEA Albuterol Sulfate 2 puff 07/08/20 00:01 Albuterol Sulfate 90 Mcg 8 Gm Inhaler INHALE RQ6H PRN Wheezing Aspirin 81 mg 07/08/20 09:00 07/13/20 10:53 Aspirin 81 Mg Tab.Chew PO 81 mg DAILY OZZY Administration Atorvastatin Calcium 20 mg 07/08/20 21:00 07/13/20 19:59 Atorvastatin Calcium 20 Mg Tablet PO 20 mg BEDTIME OZZY Administration Clozapine 300 mg 07/08/20 21:00 07/13/20 20:02 Clozapine 100 Mg Tablet PO 300 mg BEDTIME OZZY Administration Divalproex Sodium 750 mg 07/08/20 09:00 07/13/20 10:53 Divalproex Sodium Er 250 Mg Tab.Er.24h PO 750 mg DAILY OZZY Administration Docusate Sodium 100 mg 07/08/20 08:30 07/13/20 19:59 Docusate Sodium 100 Mg Capsule PO 100 mg BID@0830,2100 OZZY Administration Hydroxyzine HCl 25 mg 07/08/20 00:01 Hydroxyzine Hcl 25 Mg Tablet PO BEDTIME MRX1 PRN NIGHT TIME ANXIETY Magnesium Hydroxide 30 ml 07/08/20 00:01 Milk Of Magnesia 30 Ml Oral.Susp PO Q24H PRN Constipation Metoprolol Succinate 25 mg 07/08/20 09:45 07/13/20 20:00 Metoprolol Succinate Er 25 Mg Tab.Er.24h PO 25 mg BID@0830,2100 OZZY Administration Protocol Metoprolol Succinate 12.5 mg 07/08/20 09:37 07/13/20 20:02 Metoprolol Succinate Er 12.5 Mg Halftab.Er.24h PO 12.5 mg BID@0830,2100 [facility] Administration Protocol Nicotine Polacrilex 2 mg 07/08/20 00:01 Nicotine Polacrilex 2 Mg Gum BUCCAL Q2H PRN Nicotine Cravings Quetiapine Fumarate 100 mg 07/08/20 21:00 07/13/20 19:59 Quetiapine Fumarate 100 Mg Tablet PO 100 mg BEDTIME MRX1 OZZY Administration Quetiapine Fumarate 100 mg 07/08/20 00:01 Quetiapine Fumarate 100 Mg Tablet PO Q4H PRN anxiety/restlessness Topiramate 50 mg 07/08/20 21:00 07/13/20 19:57 Topiramate 25 Mg Tablet PO 50 mg BEDTIME OZZY Administration Trazodone HCl 50 mg 07/08/20 21:00 Trazodone Hcl 50 Mg Tablet PO BEDTIME MRX1 PRN Insomnia Vitamin D 25 mcg 07/08/20 09:00 07/13/20 10:53 Cholecalciferol (Vitamin D3) 25 Mcg Tablet PO 25 mcg DAILY OZZY Administration Allergies Allergies Allergy/AdvReac Type Severity Reaction Status Date / Time lithium [[place]] Allergy Severe TOXICITY Unverified 06/24/20 15:24 thiothixene Allergy Severe SWELLING Unverified 06/24/20 15:24 barium sulfate Allergy Intermediate NAUSEA & Unverified 06/24/20 15:24 [BARIUM SULFATE] VOMITING haloperidol Allergy Intermediate MUSCLE Unverified 06/24/20 15:24 TENSION IN LEGS fluphenazine Allergy Unknown UNKNOWN Unverified 06/24/20 15:24 gabapentin [From NEURONTIN] Allergy Unknown UNKNOWN Unverified 06/24/20 15:24 olanzapine [Zyprexa] AdvReac Unknown confusion Verified 03/30/20 00:00 Barium sulfate Allergy Unknown vomiting Uncoded 05/07/20 00:00 Benadryl Allergy Unknown Uncoded 03/30/20 00:00 benadryl Allergy Unknown urinary Uncoded 05/07/20 00:00 retention Benztropine Mesylate Allergy Unknown Uncoded 03/30/20 00:00 Fluphenazine HCl Allergy Unknown Uncoded 03/30/20 00:00 haldol Allergy Unknown aggitation Uncoded 05/07/20 00:00 lithium Allergy Unknown Uncoded 05/07/20 00:00 Navane Allergy Unknown Uncoded 03/30/20 00:00 navane Allergy Unknown oral Uncoded 05/07/20 00:00 swelling prolixen Allergy Unknown Uncoded 05/07/20 00:00
[2020-07-14 06:05] VITALS: BP 130/78; PULSE 77; RESP 18; TEMP 36.2
[2020-07-14 09:11] VITALS: BP 130/78; PULSE 77
[2020-07-14] MEDS: Metoprolol Succinate ER 12.5 MG HALFTAB.ER.24H PO (09:11)
[2020-07-14] MEDS: Docusate Sodium 100 MG CAPSULE PO (09:11)
[2020-07-14 09:13] VITALS: BP 137/74; PULSE 77
[2020-07-14] MEDS: Metoprolol Succinate ER 25 MG TAB.ER.24H PO (09:13)
[2020-07-14] MEDS: Divalproex Sodium ER 250 MG TAB.ER.24H 750 MG PO (09:13)
[2020-07-14] MEDS: Cholecalciferol (Vitamin D3) 25 MCG TABLET PO (09:14)
[2020-07-14] MEDS: Aspirin 81 MG TAB.CHEW PO (09:14)
[2020-07-14 10:18] LABS: MANUAL DIFF FLAG NO
[2020-07-14 10:29] LABS: Basophils Percent Auto 0.4 % (0-2); Eosinophils Absolute Auto 0.1 X10*3/uL (0.0-0.4); Eosinophils Percent Auto 1.3 % (0-4); Hematocrit 45.9 % (42-52); Hemoglobin 14.4 g/dl (14.0-18.0); Imm Gran Abs Auto 0.02 X10*3/uL (0.00-0.03); Imm Gran Pct Auto 0.4 % (0.0-0.4); Lymphocytes Absolute Auto 1.1 X10*3/uL (1.2-4.9); Lymphocytes Percent Auto 21.2 % (20-40); Mean Corpuscular HGB Conc 31.4 g/dl (31.0-36.0); Mean Platelet Volume 11.9 fL (9.4-12.4); Monocytes Absolute Auto 0.4 X10*3/uL (0.1-1.2); Monocytes Percent Auto 7.4 % (2-11); Neutrophils Absolute Auto 3.7 X10*3/uL (2.0-8.3); Neutrophils Percent Auto 69.3 % (45-73); Platelet Count 124 X10*3/uL (160-400); Red Blood Count 5.34 X10*6/uL (4.60-5.80); Red Cell Distribution Width 14.6 % (11.0-16.0); White Blood Count 5.3 X10*3/uL (4.8-10.8)
--- NOTE | 2020-07-14 13:04 | P.DS_ITS ---
DS: Providers Provider Date of admission: 05/13/20 14:56 Primary care physician: Regan Hogue MD Consults: 07/07/20 02:14 Consult to Cardiology Routine Consulting Provider: Manuel Arriaza Reason for consultation: Hx elevated QTC, low ejection. Advise re: restart latuda 07/07/20 02:18 Consult to Psychiatry Routine Consulting Provider: Anastasiia Sprague Reason for consultation: Med management 07/07/20 02:19 Consult to Crisis Routine DS: Diagnosis Discharge Diagnosis (1) Schizoaffective disorder: Status: Acute (2) detention current use of clozapine: Status: Acute Discharge Plan Discharge Anticipated Discharge Date/Time: 07/14/20 13:20 Patient Disposition: Xfer Other Referrals: Freeman Cerna (psychiatrist) [Other] - 08/20/20 10:00 am Regan Hogue MD [Primary Care Provider] - (Dr Hogue office called, they stated they will call pt with appointment, pt is currently on a waitlist) Discharge Medications: New clozapine 100 mg Tablet 300 mg PO BEDTIME 30 Days Qty: 90 RF: 0 aspirin 81 mg Tablet,Chewable 81 mg PO DAILY 30 Days Qty: 30 RF: 0 divalproex 250 mg Tablet Extended Release 24 Hr 750 mg PO DAILY 30 Days Qty: 90 RF: 0 topiramate 25 mg Tablet 50 mg PO BEDTIME 30 Days Qty: 30 RF: 0 docusate sodium 100 mg Capsule 100 mg PO BID@0830,2100 30 Days Qty: 60 RF: 0 Continued cholecalciferol (vitamin D3) 25 mcg (1,000 unit) Capsule 25 mcg PO DAILY RF: 0 atorvastatin 20 mg Tablet 20 mg PO BEDTIME 30 Days Qty: 30 RF: 0 Discontinued docusate sodium 100 mg Capsule 100 mg PO BID RF: 0 aspirin 81 mg Tablet 81 mg PO DAILY RF: 0 metoprolol succinate 25 mg Tablet Extended Release 24 Hr 25 mg PO BID RF: 0 lorazepam 1 mg Tablet 1 mg PO BID RF: 0 albuterol sulfate 90 mcg/actuation Hfa Aerosol Inhaler 2 puff INHALATION Q6H PRN (Reason: asthma) RF: 0 No Action quetiapine 100 mg tablet 100 mg PO BEDTIME RF: 0 quetiapine 100 mg tablet 100 mg PO DAILY PRN (Reason: Anxiety/Restlessness) RF: 0 lorazepam 1 mg tablet 1 mg PO DAILY PRN (Reason: Agitation) RF: 0 albuterol sulfate 90 mcg/actuation HFA aerosol inhaler 2 puff INHALATION DAILY PRN (Reason: asthma) RF: 0 metoprolol succinate 25 mg tablet extended release 24 hr 37.5 mg PO BID RF: 0 Discharge Orders: Discharge Order (Routine); Ordered 07/14/20 Ordered By: Rocael Pacheco Diet: advance to usual diet Activity on Discharge: As tolerated Discharge Date/Time: 07/14/20 14:21 Visit Report Forms: Patient Portal Discharge page Care Plan Goals: STABLE MOOD LESS AGGRESSION ABLE TO LIVE INDEPENDANTLY Health Concerns: THOUGHT DISORDER ILLOGICALITY POOR CONCENTRATION AGGRESSION SCHIZOAFFECTIVE DISORDER Plan of Treatment: CLOZAPINE DEPAKOTE CONSIDER RESTART LATUDA NOW ON ARTHUR ORDER Mental Status Exam Mental Status Exam Patient Appearance: Disheveled Patient Orientation: Person and Place Level of Consciousness: Awake Patient Behavior: Passive, Pacing and Poor Eye Contact Mood Description: Withdrawn and Flat Affect Description: Blunted Ability to Follow Directions: Fair Speech Pattern: Impoverished, Garbled, Rambling and Mumbled Hallucinations: None Delusions: Paranoid Ideation Thought Process: Illogical, Distracted and Evasive Thought Content: positive for [place] and positive for Disorganized Judgement: Poor Data Data Completed and Pending Completed studies during hospitalization [Text1]: 07/08/20 07/11/20 07/14/20 11:00 11:39 10:04 WBC 6.5 6.3 5.3 RBC 5.09 5.32 5.34 Hgb 14.0 14.4 14.4 Hct 43.8 45.5 45.9 MCV 86.1 85.5 86.0 MCH 27.5 27.1 27.0 MCHC 32.0 31.6 31.4 RDW 14.5 14.5 14.6 Plt Count 120 L 133 L 124 L MPV 12.7 H 11.6 11.9 Immature Gran % (Auto) 0.5 H 0.6 H 0.4 Neut % (Auto) 60.6 62.7 69.3 Lymph % (Auto) 24.6 23.7 21.2 [place] % (Auto) 11.9 H 10.7 7.4 Eos % (Auto) 1.9 1.7 1.3 Baso % (Auto) 0.5 0.6 0.4 Neut # (Auto) 3.9 4.0 3.7 Lymph # (Auto) 1.6 1.5 1.1 L [place] # (Auto) 0.8 0.7 0.4 Eos # (Auto) 0.1 0.1 0.1 Baso # (Auto) 0.0 0.0 0.0 Abs Immat Gran (auto) 0.03 0.04 H 0.02 Absolute Nucleated RBC 0.000 0.000 0.000 Nucleated RBC % (auto) 0.0 0.0 0.0 DS: Summary Hospital Course Hospital Course: the patient had been admitted in a psychotic and agitated state not allowing in care becoming increasingly disruptive irritable and not able to take care of himself. He had been missing doses. The patient during the hospitalization was increased on clozapine to 300 mg and he was taking Depakote on a regular basis. The patient was admitted initially agitated and aggressive had gradually overtime with medication compliance he was significantly thought disordered tangential difficulty processing information he remained tangential with the real meant of thought. He was more cooperative with ADLs was not doing harm to others and was taking his medication on regular basis. He was seems stable to discharge to a transitional group /respite setting Status at Discharge Functional status at discharge: independent ambulation Overall status at discharge: patient is not back to baseline Time Spent with Patient Time attestation: Total time spent providing and/or coordinating discharge services: Time spent: Greater than 30 minutes Specific discharge activities: coordination of care pharmacy and transitional care
== END 2020-07-14 14:21 | disposition other institution (70) | DRG 885 ==
PROVIDERS: Psychiatry & Neurology Psychiatry; Admitting Provider Psychiatry & Neurology Psychiatry; Emergency Provider Emergency Medicine; PCP Internal Medicine; Visit Provider Psychiatry & Neurology Psychiatry
DX: F25.9 Schizoaffective disorder, unspecified (principal); K21.9 Gastro-esophageal reflux disease without esophagitis; E66.9 Obesity, unspecified; Z20.828 Contact with and (suspected) exposure to other viral communicable diseases; R94.31 Abnormal electrocardiogram [ECG] [EKG]; N40.0 Benign prostatic hyperplasia without lower urinary tract symptoms; Z68.34 Body mass index [BMI] 34.0-34.9, adult; I10 Essential (primary) hypertension; E78.5 Hyperlipidemia, unspecified; Z79.82 Long term (current) use of aspirin; Z79.899 Other long term (current) 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
CPT/HCPCS: 36415; 80048; 80053; 80076; 80159; 80164; 82140; 82550; 85025; 85048; 87635; 93005; 96372; 99232; 99239; 99285; J1200; J2060; J3486

== ENCOUNTER 2020-07-28 16:31 | Emergency (ER) | payer MEDICARE, MEDICAID, SELFPAY ==
[2020-07-28 16:39] VITALS: BP 176/98; PULSE 94; RESP 18; TEMP 36.1; O2SAT 97; BMI 34.0
[2020-07-28 16:45] VITALS: BMI 34.0
--- NOTE | 2020-07-28 16:53 | PC.NURSE ---
Pt triaged, cooperative with record changer assembler. Pt currently not displaying any signs of agitation. Denies SI/HI/VH/AH. Does not appear to be responding to internal stimuli. Waiting to be medically cleared.
[2020-07-28 17:15] VITALS: BP 176/98; PULSE 94; RESP 18; TEMP 36.1; O2SAT 97
--- NOTE | 2020-07-28 17:15 | ED_ITS ---
HPI - Psych General Chief Complaint: Psychiatric Symptoms Stated Complaint: CRISIS Time Seen by Provider: 07/28/20 17:15 Source: patient Mode of arrival: EMS Limitations: no limitations History of Present Illness HPI Narrative: 55-year-old male presents from a respite home for evaluation. He was sent in to this facility for evaluation because he was has not been taking his medications, has been trying to flee this state, and has been noncompliant with care. staff states that he is decompensating, and is not safe at home. He does not describe any suicidal ideation, homicidal ideation, Auditory visual hallucinations, chest pain or pressure, palpitations, shortness of breath, abdominal pain, abdominal distention, dysuria, hematuria, edema, or any other concerning symptoms. Related Data Home Medications Medication Instructions Recorded Confirmed cholecalciferol (vitamin D3) 25 mcg PO DAILY 07/07/20 07/28/20 metoprolol succinate 37.5 mg PO BID 07/28/20 07/28/20 Previous Rx's Medication Instructions Recorded albuterol sulfate 2 puff INHALATION Q6H PRN 30 Days 07/14/20 #18 g aspirin 81 mg PO DAILY 30 Days #30 tab 07/14/20 atorvastatin 20 mg PO BEDTIME 30 Days #30 tab 07/14/20 clozapine 300 mg PO BEDTIME 30 Days #90 tab 07/14/20 divalproex 750 mg PO DAILY 30 Days #90 tab 07/14/20 docusate sodium 100 mg PO BID@0830,2100 30 Days 07/14/20 #60 cap lorazepam 1 mg PO BID PRN 30 Days #60 tab 07/14/20 quetiapine 100 mg PO BEDTIME MRX1 30 Days #60 07/14/20 tab quetiapine 100 mg PO Q4H PRN 30 Days #60 tab 07/14/20 topiramate 50 mg PO BEDTIME 30 Days #30 tab 07/14/20 Allergies Allergy/AdvReac Type Severity Reaction Status Date / Time lithium [[place]] Allergy Severe TOXICITY Verified 07/28/20 18:08 thiothixene Allergy Severe SWELLING Verified 07/28/20 18:08 barium sulfate Allergy Intermediate NAUSEA & Verified 07/28/20 18:08 [BARIUM SULFATE] VOMITING haloperidol Allergy Intermediate MUSCLE Verified 07/28/20 18:08 TENSION IN LEGS fluphenazine Allergy Unknown UNKNOWN Verified 07/28/20 18:08 gabapentin [From NEURONTIN] Allergy Unknown UNKNOWN Verified 07/28/20 18:08 olanzapine [Zyprexa] AdvReac Unknown confusion Verified 07/28/20 18:08 Barium sulfate Allergy Unknown vomiting Uncoded 05/07/20 00:00 Benadryl Allergy Unknown Unknown Uncoded 07/28/20 16:56 benadryl Allergy Unknown urinary Uncoded 05/07/20 00:00 retention Benztropine Mesylate Allergy Unknown Unknown Uncoded 07/28/20 16:56 Fluphenazine HCl Allergy Unknown Unknown Uncoded 07/28/20 16:56 haldol Allergy Unknown aggitation Uncoded 05/07/20 00:00 lithium Allergy Unknown Unknown Uncoded 07/28/20 16:56 Navane Allergy Unknown Unconscious Uncoded 07/28/20 16:56 navane Allergy Unknown oral Uncoded 05/07/20 00:00 swelling prolixen Allergy Unknown Unknown Uncoded 07/28/20 16:56 Review of Systems Review of Systems: Constitutional: No Fever, No Chills ENT/Mouth: No Ear Pain, No Nasal Congestion, No sore throat Eyes: No Eye Pain, No Swelling, No Redness Cardiovascular: No Chest Pain, No SOB Respiratory: No Cough, No Sputum, No Dyspnea Gastrointestinal: No Nausea, No Vomiting, No Diarrhea, No Hematochezia, No Sharda zaki Genitourinary: No Dysuria, No Urinary Frequency, No Hematuria Musculoskeletal: No Myalgias Skin: No Skin Lesions, No rash Neuro: No Weakness, No Numbness, No Paresthesias, No Dizziness, No Headache Psych: positive Anxiety, denies depression, denies auditory visual hallucinations, No SI/HI Heme/Lymph: No Lymphadenopathy Endocrine: No Polyuria, No Polydipsia PMFSH Past Medical History Attestation statement: The following information was validated with the patient. Source: old records reviewed Medical History Cardiac arrhythmia CHF (congestive heart failure) Coronary artery disease Hypertension Myocardial infarction Schizoaffective disorder Social History Social History Alcohol intake: unknown Smoking Status: Unknown if ever smoked Use of substances other than those prescribed or required for medical reasons: Unknown Advance Directives: No Advance Directives Information Provided: Yes Physical Exam Vital Signs: Vital Signs: Vital Signs Temp Pulse Resp BP Pulse Ox 07/28/20 23:06 97 156/86 H 07/28/20 22:13 97.3 F 97 20 156/86 H 98 07/28/20 17:15 97 F 94 18 176/98 H 97 07/28/20 16:39 97.0 F 94 18 176/98 H 97 Body Mass Index 34.0 Appearance: Alert. Oriented X 2. flat affect, appears to be anxious. Eyes: Pupils equal, round and reactive to light. ENT: Pharynx normal. Neck: Normal inspection. Neck supple. CVS: Normal heart rate and rhythm. Pulses normal. Respiratory: No respiratory distress. Breath sounds normal. Abdomen: Soft and nontender. Skin: Skin warm and dry. Normal skin color. Normal skin turgor. Extremities: No lower extremity edema. Neuro: No motor deficit. No sensory deficit. Course Course Course Narrative: patient has been in respite for 2 weeks after discharge from . Staff states that things are not going well for him, that he is trying to take a cab to go to [place], he is not taking his medications, and is talking to imaginary girlfriend. Patient does not confirm the statements but he does have schizoaffective disorder, and does appear to be responding to internal stimulus. Plan is for [facility] consult once patient is medically cleared and for section 12. Reevaluation(s) Reevaluation #1: Depakote level subtherapeutic. Order for 1000 mg of Depakote ER. Time: 21:31 Reevaluation #2: [facility] consult complete, plan is for inpatient psychiatry placement. Time: 01:27 MDM - Psych Differential Diagnosis Differential diagnosis: Likely acute psychosis, acute anxiety and schizoaffecti ve disorder Restraints Face to Face Assessment: Face to Face Assessment: Current Situation: After assessment of the patient, a review of the pertinent medical record and a discussion with nursing staff, I feel the patient requires a restrain intervention. Reaction To: [] Medical Condition: [] Behavioral State: [] Continued Need: [] Medical Records Attestation: I reviewed the patient's medical records. Lab Data Attestation: I reviewed the patient's lab results. Result diagrams: 07/28/20 19:41 07/28/20 19:41 Labs: Lab Results 10/21/20 10/21/20 Range/Units 19:41 19:41 WBC 6.6 (4.8-10.8) X10*3/uL RBC 5.00 (4.60-5.80) X10*6/uL Hgb 13.7 L (14.0-18.0) g/dl Hct 42.6 (42-52) % MCV 85.2 (80-98) fL MCH 27.4 (27.0-33.0) pg MCHC 32.2 (31.0-36.0) g/dl RDW 14.9 (11.0-16.0) % Plt Count 123 L (160-400) X10*3/uL MPV 12.2 (9.4-12.4) fL Immature Gran % (Auto) 0.2 (0.0-0.4) % Neut % (Auto) 64.0 (45-73) % Lymph % (Auto) 24.7 (20-40) % [place] % (Auto) 9.5 (2-11) % Eos % (Auto) 1.1 (0-4) % Baso % (Auto) 0.5 (0-2) % Lymph # (Auto) 1.6 (1.2-4.9) X10*3/uL [place] # (Auto) 0.6 (0.1-1.2) X10*3/uL Eos # (Auto) 0.1 (0.0-0.4) X10*3/uL Baso # (Auto) 0.0 (0.0-0.2) X10*3/uL Abs Immat Gran (auto) 0.01 (0.00-0.03) X10*3/uL Absolute Neuts (auto) 4.2 (2.0-8.3) X10*3/uL Absolute Nucleated RBC 0.000 (0.0-0.012) X10*3/uL Nucleated RBC % (auto) 0.0 (0.0-0.2) /100WBC Sodium 144 (135-145) mmol/L Potassium 4.3 (3.3-5.1) mmol/l Chloride 111 H (96-108) mmol/L Carbon Dioxide 23 (22-29) mmol/L Anion Gap 14 (12-20) BUN 20 H (9-16) mg/dL Creatinine 1.26 (0.5-1.4) mg/dL Estim Creat Clear Calc 77.9 Estimated GFR 59 Random Glucose 143 H (60-115) mg/dL Calcium 8.9 (8.4-10.2) mg/dL Valproic Acid 45.0 L (50.0-100.0) mcg/mL Discharge Plan Discharge Clinical Impression: Schizoaffective disorder Qualifiers: Schizoaffective disorder type: unspecified Qualified Code(s): F25.9 - Schizoaffective disorder, unspecified Patient Disposition: Home, Self-Care Instructions: Schizoaffective Disorder (ED) Prescriptions: No Action cholecalciferol (vitamin D3) 25 mcg (1,000 unit) Capsule 25 mcg PO DAILY RF: 0 clozapine 100 mg Tablet 300 mg PO BEDTIME 30 Days Qty: 90 RF: 0 aspirin 81 mg Tablet,Chewable 81 mg PO DAILY 30 Days Qty: 30 RF: 0 divalproex 250 mg Tablet Extended Release 24 Hr 750 mg PO DAILY 30 Days Qty: 90 RF: 0 topiramate 25 mg Tablet 50 mg PO BEDTIME 30 Days Qty: 30 RF: 0 quetiapine 100 mg Tablet 100 mg PO BEDTIME MRX1 30 Days Qty: 60 RF: 0 quetiapine 100 mg Tablet 100 mg PO Q4H PRN (Reason: Anxiety/Restlessness) 30 Days Qty: 60 RF: 0 docusate sodium 100 mg Capsule 100 mg PO BID@0830,2100 30 Days Qty: 60 RF: 0 atorvastatin 20 mg Tablet 20 mg PO BEDTIME 30 Days Qty: 30 RF: 0 albuterol sulfate 90 mcg/actuation Hfa Aerosol Inhaler 2 puff INHALATION Q6H PRN (Reason: asthma) 30 Days Qty: 18 RF: 0 lorazepam 1 mg Tablet 1 mg PO BID PRN (Reason: Agitation) 30 Days Qty: 60 RF: 0 metoprolol succinate 25 mg tablet extended release 24 hr 37.5 mg PO BID RF: 0
--- NOTE | 2020-07-28 18:21 | PC.NURSE ---
Spoke with Zaynab Ferrera at [facility]. She reports that patient requires a higher level of care, and cannot return to respite at this time. Pt has been resistant to working with [facility], and refuses to go to his apartment with them to collect his clothes and belongings. Pt attempted to get in a cab today to drive to [place] to see his imaginary girlfriend. Maida, provider aware. [facility] crisis consult ordered. Pt aware and acknowledges understanding.
[2020-07-28 19:46] LABS: MANUAL DIFF FLAG NO
[2020-07-28 19:47] LABS: Basophils Percent Auto 0.5 % (0-2); Eosinophils Absolute Auto 0.1 X10*3/uL (0.0-0.4); Eosinophils Percent Auto 1.1 % (0-4); Hematocrit 42.6 % (42-52); Hemoglobin 13.7 g/dl (14.0-18.0); Imm Gran Abs Auto 0.01 X10*3/uL (0.00-0.03); Imm Gran Pct Auto 0.2 % (0.0-0.4); Lymphocytes Absolute Auto 1.6 X10*3/uL (1.2-4.9); Lymphocytes Percent Auto 24.7 % (20-40); Mean Corpuscular HGB Conc 32.2 g/dl (31.0-36.0); Mean Corpuscular Hemoglobin 27.4 pg (27.0-33.0); Mean Corpuscular Volume 85.2 fL (80-98); Mean Platelet Volume 12.2 fL (9.4-12.4); Monocytes Absolute Auto 0.6 X10*3/uL (0.1-1.2); Monocytes Percent Auto 9.5 % (2-11); Neutrophils Absolute Auto 4.2 X10*3/uL (2.0-8.3); Platelet Count 123 X10*3/uL (160-400); Red Cell Distribution Width 14.9 % (11.0-16.0); White Blood Count 6.6 X10*3/uL (4.8-10.8)
--- NOTE | 2020-07-28 19:47 | PC.NURSE ---
[facility] faxed and notfied
[2020-07-28 20:11] LABS: Anion Gap 14 (12-20); Blood Urea Nitrogen 20 mg/dL (9-16); Calcium 8.9 mg/dL (8.4-10.2); Carbon Dioxide 23 mmol/L (22-29); Chloride 111 mmol/L (96-108); Creatinine Clr Calc Pharmacy 77.9; Estimated Glomerular Filt Rate 59; Glucose Random 143 mg/dL (60-115); Potassium 4.3 mmol/l (3.3-5.1); Sodium 144 mmol/L (135-145)
--- NOTE | 2020-07-28 20:51 | PC.NURSE ---
Pt currently resting in bed, quiet, calm. No complaints at this time. Waiting to be seen by [facility].
[2020-07-28] MEDS: Divalproex Sodium ER 500 MG TAB.ER.24H 1000 MG PO (22:00)
[2020-07-28] MEDS: QUEtiapine Fumarate 50 MG TABLET 100 MG PO (22:01)
[2020-07-28] MEDS: QUEtiapine Fumarate 100 MG TABLET PO (22:01)
[2020-07-28] MEDS: LORazepam 1 MG TABLET 2 MG PO (22:01)
[2020-07-28 22:13] VITALS: BP 156/86; PULSE 97; RESP 20; TEMP 36.3; O2SAT 98
[2020-07-28] MEDS: cloZAPine 100 MG TABLET 300 MG PO (23:02)
[2020-07-28] MEDS: Topiramate 25 MG TABLET 50 MG PO (23:02)
[2020-07-28] MEDS: Atorvastatin Calcium 20 MG TABLET PO (23:03)
[2020-07-28 23:06] VITALS: BP 156/86; PULSE 97
[2020-07-28] MEDS: Metoprolol Succinate ER 25 MG TAB.ER.24H 37.5 MG PO (23:06)
[2020-07-29] VITALS (8 sets, daily range): BP systolic 146–173; BP diastolic 84–99; PULSE 81–87; RESP 18–20; TEMP 35.6–36.7; O2SAT 94–97
--- NOTE | 2020-07-29 07:08 | PC.NURSE ---
Report recieved. Pt currently eating breakfast, denies complaints. Pt calm and cooperative. Pt is inpatient bedsearch.
[2020-07-29] MEDS: Metoprolol Succinate ER 25 MG TAB.ER.24H 37.5 MG PO ×2 (08:33→21:41)
[2020-07-29] MEDS: Cholecalciferol (Vitamin D3) 25 MCG TABLET PO (08:33)
[2020-07-29] MEDS: Aspirin 81 MG TAB.CHEW PO (08:33)
[2020-07-29] MEDS: Docusate Sodium 100 MG CAPSULE PO ×2 (08:34→21:43)
--- NOTE | 2020-07-29 15:03 | PC.NURSE ---
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 Dilma stated that tomorrow morning she has staff who will be able to pick him up and bring him back to his home. Provider aware and in agreement, pt will stay in ED until tomorrow.
[2020-07-29] MEDS: LORazepam 1 MG TABLET 2 MG PO (18:12)
--- NOTE | 2020-07-29 19:12 | PC.NURSE ---
Report received. PT is pacing around the unit. Calm and cooperative. Plan is to D/C in the morning to [facility].
[2020-07-29] MEDS: Topiramate 25 MG TABLET 50 MG PO (21:38)
[2020-07-29] MEDS: QUEtiapine Fumarate 100 MG TABLET PO (21:39)
[2020-07-29] MEDS: Atorvastatin Calcium 20 MG TABLET PO (21:40)
--- NOTE | 2020-07-29 21:52 | PC.NURSE ---
PT sitting in the common room watching TV. Calm and cooperative. No other complaints.
[2020-07-29] MEDS: cloZAPine 100 MG TABLET 300 MG PO (21:58)
--- NOTE | 2020-07-29 23:41 | PC.NURSE ---
PT is sleeping in bed. Breathing even and unlabored. D/C in the morning to [facility].
[2020-07-30 00:27] VITALS: BP 116/51; PULSE 86; RESP 18; TEMP 36.2; O2SAT 94
[2020-07-30 06:41] VITALS: BP 150/77; PULSE 80; RESP 18; TEMP 36.1; O2SAT 97
--- NOTE | 2020-07-30 07:01 | PC.NURSE ---
pt sitting up, eating breakfast, no apparent distress at this time, per previous shift rn, pt to be dc some time this morning to [facility].
[2020-07-30 09:05] VITALS: BP 127/79; PULSE 95; RESP 18; TEMP 37.2; O2SAT 96
--- NOTE | 2020-07-30 10:02 | PC.NURSE ---
PT SPEAKING W STAFF FROM [facility]. JOSE A SPEAKING TO THIS RN AFTER CONVERSATION W PT, STAFF CONCERNED FOR PT PRESENT DISORIENTATION AND MISUNDERSTANDING OF PT PLAN OF CARE. CARE TEAM AWARE ATT, CARE TEAM TO SPEAK W PROVIDER AND [facility].
--- NOTE | 2020-07-30 10:23 | MHC.CARE ---
CARE Team assisting in discharge planning on the request of RN and provider. Pt assessed by [facility] and initially found IPLOC then disposition was changed to follow up with providers. ED not comfortable discharging Pt without an appropriate plan. CARE Team spoke with Dilma at [facility] ([phone] or [phone]). Dilma is going to follow up with respite to find out if Pt can return. Dilma to follow up with the CARE Team regarding plan.
--- NOTE | 2020-07-30 11:31 | MHC.CARE ---
CARE Team received called from Dilma at [facility]- reporting that [facility] is working on plan for temporary residential respite. [facility] made aware by CARE Team Pt will not be able to stay in the ED overnight -unless approved by [facility]. Dilma reported Pt should have placement by the end of the work day.
--- NOTE | 2020-07-30 12:51 | PC.NURSE ---
sitting at bedside table eating lunch, awaiting care team for update on plan of care. [facility].
[2020-08-04 11:11] LABS: Clozapine (Clozaril) 253 mcg/L; Norclozapine 109 mcg/L (25-400)
== END 2020-07-30 15:09 | disposition home or self-care (01) ==
PROVIDERS: Nurse Practitioner Family; Emergency Provider Emergency Medicine; PCP Internal Medicine
DX: F25.9 Schizoaffective disorder, unspecified (principal); F41.9 Anxiety disorder, unspecified; I11.0 Hypertensive heart disease with heart failure; I50.9 Heart failure, unspecified; I25.2 Old myocardial infarction; Z91.14 Patient's other noncompliance with medication regimen; Z91.19 Patient's noncompliance with other medical treatment and regimen
CPT/HCPCS: 36415; 80048; 80159; 80164; 85025; 99285

== ENCOUNTER 2020-08-05 11:36 | Inpatient (IN) | payer MEDICARE, MEDICAID, SELFPAY ==
[2020-08-05 12:08] VITALS: BP 147/84; PULSE 125; RESP 20; TEMP 36.6; BMI 33.2
--- NOTE | 2020-08-05 12:35 | ED.PSYCH ---
HPI - Psych General Chief Complaint: Psychiatric Symptoms <MIC Ye - Last Filed: 08/05/20 20:43> Stated Complaint: PLEASANTLY ALTERED PER [facility],SEEN T-1 <MIC Ye - Last Filed: 08/05/20 20:43> Time Seen by Provider: 08/05/20 12:08 <MIC Ye Last Filed: 08/05/20 20:43> Source: patient <MIC Ye Last Filed: 08/05/20 20:43> Mode of arrival: EMS <MIC Ye Last Filed: 08/05/20 20:43> Limitations: no limitations <MIC Ye Last Filed: 08/05/20 20:43> History of Present Illness HPI Narrative: Patient is a 55-year-old male who is well known to this hospital, he has a past medical history of get so affective disorder, bipolar type, he states he came in today because his left kidney hurts after walking 28 mi last night . He states he called Dr. Little and Dr. Little told him to come in. He denies f,c, blood in urine, urinary symptoms, changes in his bowels, abdominal pain, chest pain, shortness of breath. patient denies SI, HI, auditory or visual hallucinations. evidence spoke with Rosio from the [facility] who told me the following, reported to her by Taryn the pt's case briefer when she was at his house this morning. Taryn knows the pt very well and she says patient is not at his baseline, he is delusional and disorganized, he was pretending to talk on the phone when he was not really on the phone, he is not eating or sleeping, his refrigerator was filled with spoiled food. And he refused his medications this morning. So she called 911 to have him brought in for an evaluation. <MIC Ye - Last Filed: 08/05/20 20:43> Related Data Home Medications: Home Medications Medication Instructions Recorded Confirmed cholecalciferol (vitamin D3) 25 mcg PO DAILY 07/07/20 08/05/20 metoprolol succinate 37.5 mg PO BID 07/28/20 08/05/20 albuterol sulfate 2 puff INHALATION DAILY PRN 08/05/20 08/05/20 lorazepam 1 mg PO DAILY PRN 08/05/20 08/05/20 quetiapine 100 mg PO BEDTIME 08/05/20 08/05/20 quetiapine 100 mg PO DAILY PRN 08/05/20 08/05/20 Previous Rx's Medication Instructions Recorded aspirin 81 mg PO DAILY 30 Days #30 tab 07/14/20 atorvastatin 20 mg PO BEDTIME 30 Days #30 tab 07/14/20 clozapine 300 mg PO BEDTIME 30 Days #90 tab 07/14/20 divalproex 750 mg PO DAILY 30 Days #90 tab 07/14/20 docusate sodium 100 mg PO BID@0830,2100 30 Days 07/14/20 #60 cap topiramate 50 mg PO BEDTIME 30 Days #30 tab 07/14/20 <MIC Ye - Last Filed: 08/05/20 20:43> Allergies/Adverse Reactions: Allergies Allergy/AdvReac Type Severity Reaction Status Date / Time lithium [[place]] Allergy Severe TOXICITY Verified 07/28/20 18:08 thiothixene Allergy Severe SWELLING Verified 08/05/20 07:28 barium sulfate Allergy Intermediate NAUSEA & Verified 08/05/20 07:28 [BARIUM SULFATE] VOMITING haloperidol Allergy Intermediate MUSCLE Verified 07/28/20 18:08 TENSION IN LEGS benztropine Allergy Unknown benztropine Verified 08/05/20 07:28 mesylate- unknown diphenhydramine Allergy Unknown urinary Verified 08/05/20 07:28 [From Benadryl] retention fluphenazine Allergy Unknown UNKNOWN Verified 08/05/20 07:28 gabapentin [From NEURONTIN] Allergy Unknown UNKNOWN Verified 07/28/20 18:08 olanzapine [Zyprexa] AdvReac Unknown confusion Verified 08/05/20 07:28 prolixen Allergy Unknown Unknown Uncoded 07/28/20 16:56 <MIC Ye - Last Filed: 08/05/20 20:43> Review of Systems Review of Systems: Constitutional: No Fever, No Chills ENT/Mouth: No Ear Pain, No Nasal Congestion, No sore throat Eyes: No Eye Pain, No Swelling, No Redness Cardiovascular: No Chest Pain, No SOB Respiratory: No Cough, No Sputum, No Dyspnea Gastrointestinal: No Nausea, No Vomiting, No Diarrhea, No Hematochezia, No Melena Genitourinary: No Dysuria, No Urinary Frequency, No Hematuria Musculoskeletal: No Myalgias Skin: No Skin Lesions, No rash Neuro: No Weakness, No Numbness, No Paresthesias, No Dizziness, No Headache Psych: denies Anxiety, denies Depression, denies SI/HI Heme/Lymph: No Lymphadenopathy Endocrine: No Polyuria, No Polydipsia <MIC Ye - Last Filed: 08/05/20 20:43> Yes all other systems are reviewed and are negative <MIC Ye - Last Filed: 08/05/20 20:43> [facility] Past Medical History Source: old records reviewed <MIC Ye - Last Filed: 08/05/20 20:43> Medical History: Medical History Cardiac arrhythmia CHF (congestive heart failure) Coronary artery disease Hypertension Myocardial infarction Schizoaffective disorder <MIC Ye - Last Filed: 08/05/20 20:43> Surgical History: Surgical History History of intestinal surgery History of transurethral resection of prostate <MIC Ye - Last Filed: 08/05/20 20:43> Family History Family History: Family History Father Medical history unknown Mother Medical history unknown Sister Alive and well <MIC Ye - Last Filed: 08/05/20 20:43> Social History Social History: Social History Alcohol intake: unknown Smoking Status: Unknown if ever smoked Use of substances other than those prescribed or required for medical reasons: Unknown Advance Directives: No Advance Directives Information Provided: No <MIC Ye - Last Filed: 08/05/20 20:43> Physical Exam Vital Signs: Vital Signs: Vital Signs Temp Pulse Resp BP Pulse Ox 08/05/20 20:25 91 131/81 08/05/20 20:12 97.7 F 91 20 131/84 98 08/05/20 16:38 98 F 99 20 148/74 H 99 08/05/20 13:21 113 H 08/05/20 12:08 97.8 F 125 H 20 147/84 H Body Mass Index 33.2 <MIC Ye - Last Filed: 08/05/20 20:43> Vital Signs: Vital Signs Temp Pulse Resp BP Pulse Ox 08/05/20 20:25 91 131/81 08/05/20 20:12 97.7 F 91 20 131/84 98 08/05/20 16:38 98 F 99 20 148/74 H 99 08/05/20 13:21 113 H 08/05/20 12:08 97.8 F 125 H 20 147/84 H Body Mass Index 33.2 <Nicole Rdz MD - Last Filed: 08/06/20 06:35> Const: General: cooperative, healthy appearing, comfortable, no acute distress and well developed <MIC Ye - Last Filed: 08/05/20 20:43> Orientation/consciousness: patient oriented x3 <MIC Ye - Last Filed: 08/05/20 20:43> Limitations: no limitations <MIC Ye - Last Filed: 08/05/20 20:43> HENMT: Head: Yes normal to inspection <MCI Ye - Last Filed: 08/05/20 20:43> Eyes: General: appearance normal, both eyes and all related structures <MIC Ye - Last Filed: 08/05/20 20:43> Neck: Neck: Yes normal visual inspection and Yes full ROM <MIC Ye - Last Filed: 08/05/20 20:43> Resp: Effort & Inspection: normal respiratory effort and able to speak in complete sentences <MIC Ye Last Filed: 08/05/20 20:43> Auscultation: clear to auscultation bilaterally <MIC Ye - Last Filed: 08/05/20 20:43> Cardio: Rate: regular rate <Brunilda Norman PA - Last Filed: 08/05/20 20:43> Rhythm: regular rhythm <Brunilda Norman PA - Last Filed: 08/05/20 20:43> Heart sounds: normal S1 and S2 <Brunilda Norman PA - Last Filed: 08/05/20 20:43> GI: Inspection: Yes normal to inspection <Brunilda Norman PA - Last Filed: 08/05/20 20:43> Palpation (GI): Soft to palpation and nontender <Brunilda Norman PA - Last Filed: 08/05/20 20:43> : General: Yes no CVA tenderness <Brunilda Norman PA - Last Filed: 08/05/20 20:43> Back/Spine/Pelvis: Back: no CVA tenderness <Brunilda Norman PA - Last Filed: 08/05/20 20:43> Skin: General skin exam: no rashes or lesions noted <Brunilda Norman PA - Last Filed: 08/05/20 20:43> Neuro: General: patient oriented x3 <Brunilda Norman PA - Last Filed: 08/05/20 20:43> Extrem: General: Yes normal to inspection <Brunilda Norman PA - Last Filed: 08/05/20 20:43> Psych: Appearance: grossly normal and disheveled (slightly) <Brunilda Norman PA - Last Filed: 08/05/20 20:43> Speech and movement: Normal speech and movement present <Brunilda Norman PA - Last Filed: 08/05/20 20:43> Affect: normal affect <MIC Ye - Last Filed: 08/05/20 20:43> Attitude: cooperative <MIC Ye - Last Filed: 08/05/20 20:43> Thought process: Normal thought process present <MIC Ye - Last Filed: 08/05/20 20:43> Thought content: suicidality, no homicidality, no hallucinations and No Depressive thoughts present <MIC Ye Last Filed: 08/05/20 20:43> Insight: Good insight present (Psych) <MIC Ye Last Filed: 08/05/20 20:43> Judgement: Good judgement present (Psych) <MIC Ye - Last Filed: 08/05/20 20:43> Course Course Course Narrative: 55-year-old male with a past medical history of schizoaffective disorder, bipolar type, BIBA because his [facility] nurse was concerned with his delusional, disorganized behavior and he refused his Clozaril this morning. patient states he is here for left kidney pain after walking 28 miles last night . upon exam, patient is negative CVA however he is tachycardic at 125. will get labs, UA, tox screen and put in a referral. 8:45pm signed out patient to Lev Lucas NP. <MIC Ye Last Filed: 08/05/20 20:43> MDM - Psych MDM Narrative Medical decision making narrative: Patient's CBC and chemistry are at his baseline, heart rate has come down a little to 113bpm. waiting on UA and tox screen. <MIC Ye Last Filed: 08/05/20 20:43> Restraints Face to Face Assessment: Face to Face Assessment: Current Situation: After assessment of the patient, a review of the pertinent medical record and a discussion with nursing staff, I feel the patient requires a restrain intervention. Reaction To: [] Medical Condition: [] Behavioral State: [] Continued Need: [] <MIC Ye Last Filed: 08/05/20 20:43> Lab Data Attestation: I reviewed the patient's lab results. <MIC Ye Last Filed: 08/05/20 20:43> Result diagrams: : 08/05/20 13:17 08/05/20 13:17 <MIC Ye Last Filed: 08/05/20 20:43> Labs: Lab Results 08/05/20 08/05/20 08/05/20 Range/Units 13:17 13:17 17:47 WBC 6.4 (4.8-10.8) X10*3/uL RBC 5.15 (4.60-5.80) X10*6/uL Hgb 14.2 (14.0-18.0) g/dl Hct 43.6 (42-52) % MCV 84.7 (80-98) fL MCH 27.6 (27.0-33.0) pg MCHC 32.6 (31.0-36.0) g/dl RDW 15.3 (11.0-16.0) % Plt Count 144 L (160-400) X10*3/uL MPV 11.7 (9.4-12.4) fL Immature Gran % (Auto) 0.3 (0.0-0.4) % Neut % (Auto) 78.7 H (45-73) % Lymph % (Auto) 12.4 L (20-40) % [place]linger % (Auto) 8.0 (2-11) % Eos % (Auto) 0.3 (0-4) % Baso % (Auto) 0.3 (0-2) % Lymph # (Auto) 0.8 L (1.2-4.9) X10*3/uL [place] # (Auto) 0.5 (0.1-1.2) X10*3/uL Eos # (Auto) 0.0 (0.0-0.4) X10*3/uL Baso # (Auto) 0.0 (0.0-0.2) X10*3/uL Abs Immat Gran (auto) 0.02 (0.00-0.03) X10*3/uL Absolute Neuts (auto) 5.0 (2.0-8.3) X10*3/uL Absolute Nucleated RBC 0.000 (0.0-0.012) X10*3/uL Nucleated RBC % (auto) 0.0 (0.0-0.2) /100WBC Sodium 146 H (135-145) mmol/L Potassium 3.6 (3.3-5.1) mmol/l Chloride 111 H (96-108) mmol/L Carbon Dioxide 24 (22-29) mmol/L Anion Gap 15 (12-20) BUN 22 H (9-16) mg/dL Creatinine 1.39 (0.5-1.4) mg/dL Estim Creat Clear Calc 69.8 Estimated GFR 53 Random Glucose 168 H (60-115) mg/dL Calcium 8.7 (8.4-10.2) mg/dL Urine Color YELLOW Urine Appearance CLEAR Urine pH 6.5 (5.0-8.0) Ur Specific [place] 1.010 (1.005-1.025) Urine Protein NEG (NEG-TRACE) MG/DL Urine Glucose (UA) NEG (NEG) MG/DL Urine Ketones NEG (NEG) MG/DL Urine Blood NEG (NEG) Urine Nitrite NEG (NEG) Ur Leukocyte Esterase NEG (NEG) Urine Opiates Screen (Not Detect) Ur Barbiturates Screen (Not Detect) Ur Phencyclidine Scrn (Not Detect) Ur Amphetamines Screen (Not Detect) U Benzodiazepines Scrn (Not Detect) Urine Cocaine Screen (Not Detect) U Marijuana (THC) Screen (Not Detect) 08/05/20 Range/Units 17:47 WBC (4.8-10.8) X10*3/uL RBC (4.60-5.80) X10*6/uL Hgb (14.0-18.0) g/dl Hct (42-52) % MCV (80-98) fL MCH (27.0-33.0) pg MCHC (31.0-36.0) g/dl RDW (11.0-16.0) % Plt Count (160-400) X10*3/uL MPV (9.4-12.4) fL Immature Gran % (Auto) (0.0-0.4) % Neut % (Auto) (45-73) % Lymph % (Auto) (20-40) % [place]linger % (Auto) (2-11) % Eos % (Auto) (0-4) % Baso % (Auto) (0-2) % Lymph # (Auto) (1.2-4.9) X10*3/uL [place] # (Auto) (0.1-1.2) X10*3/uL Eos # (Auto) (0.0-0.4) X10*3/uL Baso # (Auto) (0.0-0.2) X10*3/uL Abs Immat Gran (auto) (0.00-0.03) X10*3/uL Absolute Neuts (auto) (2.0-8.3) X10*3/uL Absolute Nucleated RBC (0.0-0.012) X10*3/uL Nucleated RBC % (auto) (0.0-0.2) /100WBC Sodium (135-145) mmol/L Potassium (3.3-5.1) mmol/l Chloride (96-108) mmol/L Carbon Dioxide (22-29) mmol/L Anion Gap (12-20) BUN (9-16) mg/dL Creatinine (0.5-1.4) mg/dL Estim Creat Clear Calc Estimated GFR Random Glucose (60-115) mg/dL Calcium (8.4-10.2) mg/dL Urine Color Urine Appearance Urine pH (5.0-8.0) Ur Specific [place] (1.005-1.025) Urine Protein (NEG-TRACE) MG/DL Urine Glucose (UA) (NEG) MG/DL Urine Ketones (NEG) MG/DL Urine Blood (NEG) Urine Nitrite (NEG) Ur Leukocyte Esterase (NEG) Urine Opiates Screen Not Detected (Not Detect) Ur Barbiturates Screen Not Detected (Not Detect) Ur Phencyclidine Scrn Not Detected (Not Detect) Ur Amphetamines Screen Not Detected (Not Detect) U Benzodiazepines Scrn Not Detected (Not Detect) Urine Cocaine Screen Not Detected (Not Detect) U Marijuana (THC) Screen Not Detected (Not Detect) <MIC Ye - Last Filed: 08/05/20 20:43> Lab Results 08/05/20 08/05/20 08/05/20 Range/Units 13:17 13:17 17:47 WBC 6.4 (4.8-10.8) X10*3/uL RBC 5.15 (4.60-5.80) X10*6/uL Hgb 14.2 (14.0-18.0) g/dl Hct 43.6 (42-52) % MCV 84.7 (80-98) fL MCH 27.6 (27.0-33.0) pg MCHC 32.6 (31.0-36.0) g/dl RDW 15.3 (11.0-16.0) % Plt Count 144 L (160-400) X10*3/uL MPV 11.7 (9.4-12.4) fL Immature Gran % (Auto) 0.3 (0.0-0.4) % Neut % (Auto) 78.7 H (45-73) % Lymph % (Auto) 12.4 L (20-40) % [place] % (Auto) 8.0 (2-11) % Eos % (Auto) 0.3 (0-4) % Baso % (Auto) 0.3 (0-2) % Lymph # (Auto) 0.8 L (1.2-4.9) X10*3/uL [place] # (Auto) 0.5 (0.1-1.2) X10*3/uL Eos # (Auto) 0.0 (0.0-0.4) X10*3/uL Baso # (Auto) 0.0 (0.0-0.2) X10*3/uL Abs Immat Gran (auto) 0.02 (0.00-0.03) X10*3/uL Absolute Neuts (auto) 5.0 (2.0-8.3) X10*3/uL Absolute Nucleated RBC 0.000 (0.0-0.012) X10*3/uL Nucleated RBC % (auto) 0.0 (0.0-0.2) /100WBC Sodium 146 H (135-145) mmol/L Potassium 3.6 (3.3-5.1) mmol/l Chloride 111 H (96-108) mmol/L Carbon Dioxide 24 (22-29) mmol/L Anion Gap 15 (12-20) BUN 22 H (9-16) mg/dL Creatinine 1.39 (0.5-1.4) mg/dL Estim Creat Clear Calc 69.8 Estimated GFR 53 Random Glucose 168 H (60-115) mg/dL Calcium 8.7 (8.4-10.2) mg/dL Urine Color YELLOW Urine Appearance CLEAR Urine pH 6.5 (5.0-8.0) Ur Specific [place] 1.010 (1.005-1.025) Urine Protein NEG (NEG-TRACE) MG/DL Urine Glucose (UA) NEG (NEG) MG/DL Urine Ketones NEG (NEG) MG/DL Urine Blood NEG (NEG) Urine Nitrite NEG (NEG) Ur Leukocyte Esterase NEG (NEG) Urine Opiates Screen (Not Detect) Ur Barbiturates Screen (Not Detect) Ur Phencyclidine Scrn (Not Detect) Ur Amphetamines Screen (Not Detect) U Benzodiazepines Scrn (Not Detect) Urine Cocaine Screen (Not Detect) U Marijuana (THC) Screen (Not Detect) 08/05/20 Range/Units 17:47 WBC (4.8-10.8) X10*3/uL RBC (4.60-5.80) X10*6/uL Hgb (14.0-18.0) g/dl Hct (42-52) % MCV (80-98) fL MCH (27.0-33.0) pg MCHC (31.0-36.0) g/dl RDW (11.0-16.0) % Plt Count (160-400) X10*3/uL MPV (9.4-12.4) fL Immature Gran % (Auto) (0.0-0.4) % Neut % (Auto) (45-73) % Lymph % (Auto) (20-40) % [place] % (Auto) (2-11) % Eos % (Auto) (0-4) % Baso % (Auto) (0-2) % Lymph # (Auto) (1.2-4.9) X10*3/uL [place] # (Auto) (0.1-1.2) X10*3/uL Eos # (Auto) (0.0-0.4) X10*3/uL Baso # (Auto) (0.0-0.2) X10*3/uL Abs Immat Gran (auto) (0.00-0.03) X10*3/uL Absolute Neuts (auto) (2.0-8.3) X10*3/uL Absolute Nucleated RBC (0.0-0.012) X10*3/uL Nucleated RBC % (auto) (0.0-0.2) /100WBC Sodium (135-145) mmol/L Potassium (3.3-5.1) mmol/l Chloride (96-108) mmol/L Carbon Dioxide (22-29) mmol/L Anion Gap (12-20) BUN (9-16) mg/dL Creatinine (0.5-1.4) mg/dL Estim Creat Clear Calc Estimated GFR Random Glucose (60-115) mg/dL Calcium (8.4-10.2) mg/dL Urine Color Urine Appearance Urine pH (5.0-8.0) Ur Specific [place] (1.005-1.025) Urine Protein (NEG-TRACE) MG/DL Urine Glucose (UA) (NEG) MG/DL Urine Ketones (NEG) MG/DL Urine Blood (NEG) Urine Nitrite (NEG) Ur Leukocyte Esterase (NEG) Urine Opiates Screen Not Detected (Not Detect) Ur Barbiturates Screen Not Detected (Not Detect) Ur Phencyclidine Scrn Not Detected (Not Detect) Ur Amphetamines Screen Not Detected (Not Detect) U Benzodiazepines Scrn Not Detected (Not Detect) Urine Cocaine Screen Not Detected (Not Detect) U Marijuana (THC) Screen Not Detected (Not Detect) <Nicole Rdz MD - Last Filed: 08/06/20 06:35> Discharge Plan Discharge Prescriptions: No Action cholecalciferol (vitamin D3) 25 mcg (1,000 unit) Capsule 25 mcg PO DAILY RF: 0 clozapine 100 mg Tablet 300 mg PO BEDTIME 30 Days Qty: 90 RF: 0 aspirin 81 mg Tablet,Chewable 81 mg PO DAILY 30 Days Qty: 30 RF: 0 divalproex 250 mg Tablet Extended Release 24 Hr 750 mg PO DAILY 30 Days Qty: 90 RF: 0 topiramate 25 mg Tablet 50 mg PO BEDTIME 30 Days Qty: 30 RF: 0 docusate sodium 100 mg Capsule 100 mg PO BID@0830,2100 30 Days Qty: 60 RF: 0 atorvastatin 20 mg Tablet 20 mg PO BEDTIME 30 Days Qty: 30 RF: 0 quetiapine 100 mg tablet 100 mg PO BEDTIME RF: 0 quetiapine 100 mg tablet 100 mg PO DAILY PRN (Reason: Anxiety/Restlessness) RF: 0 lorazepam 1 mg tablet 1 mg PO DAILY PRN (Reason: Agitation) RF: 0 albuterol sulfate 90 mcg/actuation HFA aerosol inhaler 2 puff INHALATION DAILY PRN (Reason: asthma) RF: 0 metoprolol succinate 25 mg tablet extended release 24 hr 37.5 mg PO BID RF: 0 <MIC Ye - Last Filed: 08/05/20 20:43>
[2020-08-05 13:21] VITALS: PULSE 113
[2020-08-05 13:23] LABS: MANUAL DIFF FLAG NO
[2020-08-05 13:25] LABS: Basophils Percent Auto 0.3 % (0-2); Eosinophils Percent Auto 0.3 % (0-4); Hematocrit 43.6 % (42-52); Hemoglobin 14.2 g/dl (14.0-18.0); Imm Gran Abs Auto 0.02 X10*3/uL (0.00-0.03); Imm Gran Pct Auto 0.3 % (0.0-0.4); Lymphocytes Absolute Auto 0.8 X10*3/uL (1.2-4.9); Lymphocytes Percent Auto 12.4 % (20-40); Mean Corpuscular HGB Conc 32.6 g/dl (31.0-36.0); Mean Corpuscular Hemoglobin 27.6 pg (27.0-33.0); Mean Corpuscular Volume 84.7 fL (80-98); Mean Platelet Volume 11.7 fL (9.4-12.4); Monocytes Absolute Auto 0.5 X10*3/uL (0.1-1.2); Neutrophils Percent Auto 78.7 % (45-73); Platelet Count 144 X10*3/uL (160-400); Red Blood Count 5.15 X10*6/uL (4.60-5.80); Red Cell Distribution Width 15.3 % (11.0-16.0); White Blood Count 6.4 X10*3/uL (4.8-10.8)
[2020-08-05 13:42] LABS: Anion Gap 15 (12-20); Blood Urea Nitrogen 22 mg/dL (9-16); Calcium 8.7 mg/dL (8.4-10.2); Carbon Dioxide 24 mmol/L (22-29); Chloride 111 mmol/L (96-108); Creatinine Clr Calc Pharmacy 69.8; Estimated Glomerular Filt Rate 53; Glucose Random 168 mg/dL (60-115); Potassium 3.6 mmol/l (3.3-5.1); Sodium 146 mmol/L (135-145)
--- NOTE | 2020-08-05 14:40 | PC.NURSE ---
[facility] faxed and called.
--- NOTE | 2020-08-05 16:31 | PC.NURSE ---
Attempting to call [facility] [phone] to verify medications. 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
[2020-08-05 16:38] VITALS: BP 148/74; PULSE 99; RESP 20; TEMP 36.6; O2SAT 99
--- NOTE | 2020-08-05 16:49 | PC.NURSE ---
Medication reconciliation completed w/ Angle from [facility]. Per Angle, pt was not resumed on Clozaril, unclear when he last received a dose.
[2020-08-05 18:00] LABS: Glucose Urine UA NEG (NEG); Leukocyte Esterase Urine NEG (NEG); Nitrite Urine NEG (NEG); PH 6.5 (5.0-8.0); Urine Blood NEG (NEG); Urine Ketones NEG (NEG); Urine Protein NEG (NEG-TRACE)
[2020-08-05 18:01] LABS: Appearance Urine CLEAR; Color Urine YELLOW
[2020-08-05 18:31] LABS: Amphetamine Screen Urine Not Detected (Not Detect); Barbiturates, Urine Not Detected (Not Detect); Benzodiazepines Screen Urine Not Detected (Not Detect); Cannabinoid Screen Urine Not Detected (Not Detect); Cocaine Screen Urine Not Detected (Not Detect); Opiate Screen Urine Not Detected (Not Detect); Phencyclidine Screen Urine Not Detected (Not Detect)
--- NOTE | 2020-08-05 19:10 | PC.NURSE ---
Report received. PT is watching TV in the common area. Calm and cooperative. Inpatient bed search in progress.
--- NOTE | 2020-08-05 19:44 | PC.NURSE ---
PT has not been taking clozaril at home and will not be given with scheduled medications.
[2020-08-05 20:12] VITALS: BP 131/84; PULSE 91; RESP 20; TEMP 36.5; O2SAT 98
[2020-08-05] MEDS: QUEtiapine Fumarate 100 MG TABLET PO (20:22)
[2020-08-05] MEDS: Atorvastatin Calcium 20 MG TABLET PO (20:24)
[2020-08-05] MEDS: Docusate Sodium 100 MG CAPSULE PO (20:24)
[2020-08-05] MEDS: Topiramate 25 MG TABLET 50 MG PO (20:24)
[2020-08-05 20:25] VITALS: BP 131/81; PULSE 91
[2020-08-05] MEDS: Metoprolol Succinate ER 25 MG TAB.ER.24H 37.5 MG PO (20:25)
--- NOTE | 2020-08-06 02:05 | PC.NURSE ---
PT woke up and asked for a sandwich and orange juice. Calm and collected. No other complaints.
--- NOTE | 2020-08-06 07:08 | PC.NURSE ---
Report received from ISAIAH Medrano. Pt awake, alert, no concerns reported, requested milk.
[2020-08-06 07:10] VITALS: BP 145/93; PULSE 80; RESP 19; O2SAT 96
[2020-08-06 08:11] VITALS: BP 145/93; PULSE 80
[2020-08-06] MEDS: Metoprolol Succinate ER 25 MG TAB.ER.24H 37.5 MG PO ×2 (08:11→20:40)
[2020-08-06] MEDS: Aspirin 81 MG TAB.CHEW PO (08:11)
[2020-08-06] MEDS: Cholecalciferol (Vitamin D3) 25 MCG TABLET PO (08:13)
[2020-08-06] MEDS: Docusate Sodium 100 MG CAPSULE PO ×2 (08:13→20:40)
--- NOTE | 2020-08-06 14:06 | PC.NURSE ---
Lab called re: adding late add on lab BNP to rest of labs. Per lab, they will attempt to add on to existing specimen.
[2020-08-06 16:47] VITALS: BP 160/84; PULSE 75; TEMP 36.3
--- NOTE | 2020-08-06 19:08 | PC.NURSE ---
Report received. Pt current sitting on bed. Responding to internal stimuli, laughing and talking to self.
[2020-08-06 20:40] VITALS: BP 160/86; PULSE 84
[2020-08-06] MEDS: Atorvastatin Calcium 20 MG TABLET PO (20:40)
[2020-08-06] MEDS: Topiramate 25 MG TABLET 50 MG PO (20:40)
[2020-08-06] MEDS: QUEtiapine Fumarate 100 MG TABLET PO (20:40)
--- NOTE | 2020-08-06 20:59 | PC.NURSE ---
Pt currently laying in bed, resting. No complaints or signs of distress. Continues to self-dialogue.
[2020-08-06 22:40] LABS: B Type Natriuretic Peptide 125 pg/mL (<100)
[2020-08-07] VITALS (8 sets, daily range): BP systolic 120–154; BP diastolic 52–91; PULSE 52–108; RESP 16–18; TEMP 36.2–36.9; O2SAT 93–97
--- NOTE | 2020-08-07 04:58 | PC.NURSE ---
PT slept quietly through the night for approximately 5 hours. Woke up and asked when his ambulance was arriving. Requested three orange juices and then went back to bed.
--- NOTE | 2020-08-07 05:10 | PC.NURSE ---
PT is resting bed while engaging in self dialogue and responding to internal stimuli.
--- NOTE | 2020-08-07 07:01 | PC.NURSE ---
Report received. Pt currently eating breakfast, calm and cooperative. Pt is inpatient bedsearch.
[2020-08-07] MEDS: Metoprolol Succinate ER 25 MG TAB.ER.24H 37.5 MG PO ×2 (09:07→20:58)
--- NOTE | 2020-08-07 10:45 | PC.NURSE ---
Pt asking for a ride to [facility], pt redirected, plan of care explained. PT continues to state that he is going to [facility]. Pt appears to be responding internally, can be seen speaking to himself, Pt stated I just talked to your , he lives in [place] . PT calm and cooperative, pacing around unit.
--- NOTE | 2020-08-07 13:49 | PC.NURSE ---
PT resting, calm and cooperative, denies complaints at this time.
[2020-08-07] MEDS: LORazepam 1 MG TABLET PO (18:30)
--- NOTE | 2020-08-07 18:59 | PC.NURSE ---
Report received. Pt currently watching TV in common area. Calm, cooperative.
--- NOTE | 2020-08-07 20:45 | PC.NURSE ---
Pt restless, pacing the unit, many reminders to not stand too close to the main ED doors, redirectable. Appears to be responding stimuli. + Self-dialogue.
[2020-08-07] MEDS: QUEtiapine Fumarate 100 MG TABLET PO (20:57)
[2020-08-07] MEDS: Atorvastatin Calcium 20 MG TABLET PO (20:57)
[2020-08-07] MEDS: Topiramate 25 MG TABLET 50 MG PO (20:57)
[2020-08-07] MEDS: Docusate Sodium 100 MG CAPSULE PO (20:57)
--- NOTE | 2020-08-07 21:34 | PC.NURSE ---
Pt asked several times to keep clear of the main ED door. Threw a tray full of food into the nurses station. You said my word! , M5, [facility] , I'm throwing the food away . Currently sitting in common area. Labile, irritable.
--- NOTE | 2020-08-07 23:10 | PC.NURSE ---
change of shift report received from Diana Shultz. pt is in his room visible on the monitor.
--- NOTE | 2020-08-07 23:35 | PC.NURSE ---
PT UP WALKING AROUND, TALKING ABOUT ISSUES THAT ARE NOT FACTUAL. PT HAS A STEADY GAIT. PT ENCOURAGED TO WATCH TV TO RELAX. PT GIVEN MILK. NEEDS MET. SKIN WARM AND DRY. NO S/S OF RESP DISTRESS.
--- NOTE | 2020-08-08 01:44 | PC.NURSE ---
pt sleeping visible on the monitor. rr even and reg no s/s of distress.
--- NOTE | 2020-08-08 05:05 | PC.NURSE ---
pt up walking around, pt makes statements that he has called the fire dept, random thoughts expressed, he is the physician president, talking to himself as he walks around with steady gait. pt then returns back to his room and rests for a while and comes back out again.
[2020-08-08 06:27] VITALS: BP 167/82; PULSE 76; RESP 18; TEMP 36.5; O2SAT 98
--- NOTE | 2020-08-08 07:00 | PC.NURSE ---
Report recieved. Pt eating breakfast, calm and cooperative. Pt is inpatient bedsearch.
--- NOTE | 2020-08-08 08:09 | PC.NURSE ---
PT walking around unit, appears to be responding internally asking if [facility] is ready and asking when the fire department will be arriving. Pt redirectible, irritable at times.
[2020-08-08] MEDS: Metoprolol Succinate ER 25 MG TAB.ER.24H 37.5 MG PO ×2 (08:46→21:03)
[2020-08-08] MEDS: Aspirin 81 MG TAB.CHEW PO (08:46)
[2020-08-08 08:51] VITALS: BP 150/92; PULSE 93; RESP 17; TEMP 36.3; O2SAT 98
--- NOTE | 2020-08-08 12:05 | PC.NURSE ---
PT redirected away from exit doors frequently, pt difficult to redirect. Pt irritable, yelling at staff at times.
[2020-08-08 12:51] VITALS: BP 159/77; PULSE 91; RESP 20; TEMP 36.8; O2SAT 97
[2020-08-08] MEDS: LORazepam 1 MG TABLET PO (12:54)
[2020-08-08] MEDS: QUEtiapine Fumarate 100 MG TABLET PO ×2 (14:15→21:03)
[2020-08-08 14:16] VITALS: BP 151/92; PULSE 88; TEMP 36.6; O2SAT 95
--- NOTE | 2020-08-08 16:05 | PC.NURSE ---
PT resting quietly at this time, calm and cooperative. Pt expressed frustration at being here, requesting to go to [facility]. Pt remaining in behavioral control at this time.
[2020-08-08] MEDS: LORazepam 1 MG TABLET 2 MG PO (17:41)
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
[2020-08-08 21:03] VITALS: BP 146/93; PULSE 97
[2020-08-08] MEDS: Topiramate 25 MG TABLET 50 MG PO (21:03)
[2020-08-08] MEDS: Atorvastatin Calcium 20 MG TABLET PO (21:03)
[2020-08-08] MEDS: Docusate Sodium 100 MG CAPSULE PO (21:03)
[2020-08-08 21:06] VITALS: BP 146/93; PULSE 97; RESP 18; TEMP 35.9; O2SAT 95
--- NOTE | 2020-08-08 21:12 | PC.NURSE ---
PT adamently requesting ambulance to [facility] to see his kidney doctor . Another delusional and paranoid talk about the coming here and shutting down the ED because of COVID and President Alvino .
--- NOTE | 2020-08-08 23:25 | PC.NURSE ---
PT sleeping in bed. Breathing is even and unlabored.
--- NOTE | 2020-08-09 03:41 | PC.NURSE ---
PT woke up from sleep. Suspicious that staff is talking about him. Self dialoguing in bed. PT can be redirected without opposition.
--- NOTE | 2020-08-09 05:46 | PC.NURSE ---
PT becoming increasingly agitated. Continues to try to elope from the unit. PT states that he needs a stretcher to go to [facility] .
--- NOTE | 2020-08-09 07:17 | PC.NURSE ---
Report received from ISAIAH Medrano. Pt awake, eating breakfast.
[2020-08-09 08:05] VITALS: BP 132/83; PULSE 78; RESP 18; TEMP 36.6; O2SAT 96
[2020-08-09] MEDS: Divalproex Sodium ER 250 MG TAB.ER.24H 750 MG PO (08:17)
[2020-08-09] MEDS: Aspirin 81 MG TAB.CHEW PO (08:18)
[2020-08-09] MEDS: Cholecalciferol (Vitamin D3) 25 MCG TABLET PO (08:18)
[2020-08-09] MEDS: Docusate Sodium 100 MG CAPSULE PO ×2 (08:18→20:09)
[2020-08-09 08:19] VITALS: BP 132/83; PULSE 78
[2020-08-09] MEDS: Metoprolol Succinate ER 25 MG TAB.ER.24H 37.5 MG PO ×2 (08:19→20:13)
--- NOTE | 2020-08-09 16:10 | ECG_ITS ---
Test Reason : PRE ADMISSION Blood Pressure : / mmHG Vent. Rate : 091 BPM Atrial Rate : 091 BPM P-R Int : 164 ms QRS Dur : 112 ms QT Int : 390 ms P-R-T Axes : 022 012 155 degrees QTc Int : 479 ms Normal sinus rhythm Possible Left atrial enlargement ST & T wave abnormality, consider inferolateral ischemia Abnormal ECG When compared with ECG of 17-JUN-2020 19:40, T wave inversion less evident in Inferior leads Referred By: Katherine Brewster Electronically Signed By:CHADD WILLIS MD
[2020-08-09 16:20] VITALS: BP 155/89; PULSE 88; RESP 22; TEMP 36.5; O2SAT 96
--- NOTE | 2020-08-09 16:24 | P.EN_ITS ---
Event Note Event Note: Request for medication evaluation while patient awaits psychiatric admission Chart reviewed, discussion with Psychiatric attending, Dr. Pacheco, who also treated patient for significant period of time very recently. Pt has been having periods of increased agitation and has been attempting to leave ED. Currently has Seroquel both scheduled and PRN as well as depakote and lorazepam recommendations: * Offer PRN seroquel as necessary * This racebook writer will increase frequency of lorazepam PRN order, please offer that as well * Please obtain EKG (discussed with ED provider, who will order)
[2020-08-09] MEDS: Topiramate 25 MG TABLET 50 MG PO (20:09)
[2020-08-09 20:10] VITALS: BP 150/87; PULSE 90; RESP 24; TEMP 36.6; O2SAT 96
[2020-08-09] MEDS: LORazepam 1 MG TABLET PO (20:10)
[2020-08-09] MEDS: QUEtiapine Fumarate 100 MG TABLET PO (20:10)
[2020-08-09] MEDS: Atorvastatin Calcium 20 MG TABLET PO (20:10)
[2020-08-09 20:13] VITALS: BP 150/87; PULSE 90
[2020-08-09 23:55] VITALS: BP 151/95; PULSE 96; RESP 19; TEMP 36.9; O2SAT 93
[2020-08-10] MEDS: LORazepam 1 MG TABLET PO ×2 (03:58→23:58)
--- NOTE | 2020-08-10 07:12 | PC.NURSE ---
Report received from ISAIAH Zeng. Pt awake, restless- currently eating breakfast.
[2020-08-10 07:35] VITALS: BP 150/90; PULSE 93; RESP 18; TEMP 36.8; O2SAT 95
[2020-08-10 08:01] VITALS: BP 150/90; PULSE 93
[2020-08-10] MEDS: Metoprolol Succinate ER 25 MG TAB.ER.24H 37.5 MG PO ×2 (08:01→20:54)
[2020-08-10] MEDS: Divalproex Sodium ER 250 MG TAB.ER.24H 750 MG PO (08:01)
[2020-08-10] MEDS: Cholecalciferol (Vitamin D3) 25 MCG TABLET PO (08:01)
[2020-08-10] MEDS: Aspirin 81 MG TAB.CHEW PO (08:01)
[2020-08-10] MEDS: Docusate Sodium 100 MG CAPSULE PO ×2 (08:04→20:53)
[2020-08-10 13:46] LABS: SARS COV2 PCR INHOUSE NEGATIVE (Negative)
--- NOTE | 2020-08-10 15:29 | MHC.CARE ---
t/w presented pt w a cv and he signed willingly. [facility] accepted pt and room/doc and time also TBD.
--- NOTE | 2020-08-10 15:37 | PC.NURSE ---
Report given to ISAIAH Otero on M5.
[2020-08-10 16:21] VITALS: BP 158/83; PULSE 85; TEMP 36.2; O2SAT 96
[2020-08-10 18:00] VITALS: BP 150/67; PULSE 87; RESP 18; TEMP 36.4; O2SAT 96
[2020-08-10 19:54] VITALS: BP 150/67; PULSE 87; RESP 18; TEMP 36.4; O2SAT 96
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
[2020-08-10 20:54] VITALS: BP 150/67; PULSE 87
[2020-08-10] MEDS: Topiramate 25 MG TABLET 50 MG PO (20:56)
[2020-08-10] MEDS: QUEtiapine Fumarate 100 MG TABLET PO ×2 (20:56→23:58)
[2020-08-10] MEDS: Atorvastatin Calcium 20 MG TABLET PO (20:56)
[2020-08-11 05:25] VITALS: BP 133/88; PULSE 97; RESP 22; TEMP 36
[2020-08-11] MEDS: LORazepam 1 MG TABLET PO ×2 (06:41→18:37)
[2020-08-11] MEDS: Albuterol Sulfate 90 MCG 8 GM INHALER 2 PUFF INHALE (06:50)
--- NOTE | 2020-08-11 13:17 | HO.PSYADMNOT ---
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 Who was recently discharged on July 14 from the psychiatric unit at [place] on a combination Depakote and clozapine 300 mg. his treatment over the past few years has been complicated by and unclear cardiac event a few years ago with acute congestive heart failure and the patient tends to have a long QT. He has not been psychiatrically stable with chronic thought disorganization irritability which improved somewhat with the addition of Depakote. Case has been reviewed previously with his outpatient psychiatrist Dr. Rodríguez. The patient was referred to respite he quickly left was in a [facility] respite nursing home and then walked to his house. He did miss 1 or 2 doses of clozapine refusing them prior to going to the emergency room and has not been on clozapine now for number of days. He has intermittently threatening physically aggressive and irritable which previously had been uncharacteristic for him he had been living in the community in his own apartment with support. With the pandemic the amount of out reach support he has been able to get has been markedly decreased Past Psychiatric History: patient has had multiple psychiatric hospitalizations particularly over the past 1-2 years. He has not been able to restate belies on clozapine and his clozapine dose has been capped relatively moderate because of his cardiac conduction issues and question of CHF in the past. He had responded reportedly well to Latuda in the past he was less agitated on Depakote Medical Evaluation Reviewed: Yes [facility] Medical History Cardiac arrhythmia CHF (congestive heart failure) Coronary artery disease Hypertension Myocardial infarction Schizoaffective disorder Surgical History History of intestinal surgery History of transurethral resection of prostate Family History: patient was adopted Social History: patient not working not is on disability was living in a supportive apartment but has not been able to maintain this setting in an extended period of time Substance History: none noted Trauma History: not evaluated Diagnostics Vital Signs (24Hr): Vital Signs - 24 hr 08/10/20 16:21 08/10/20 18:00 08/10/20 19:54 Temperature 97.2 F 97.5 F 97.5 F Pulse Rate 85 87 87 Respiratory Rate 18 18 Blood Pressure 158/83 H 150/67 H 150/67 H Pulse Oximetry 96 96 96 08/10/20 20:54 08/11/20 05:25 Temperature 96.8 F Pulse Rate 87 97 Respiratory Rate 22 H Blood Pressure 150/67 H 133/88 Pulse Oximetry Body Mass Index 33.2 Labs Results: 08/05/20 13:17 08/05/20 13:17 Labs: Laboratory Results - last 48 hr 08/10/20 12:45 Coronavirus (PCR) NEGATIVE Meds/Allergies Meds Home Medications Medication Instructions Recorded Confirmed Type cholecalciferol (vitamin D3) 25 mcg PO DAILY 07/07/20 08/05/20 History metoprolol succinate 37.5 mg PO BID 07/28/20 08/05/20 History albuterol sulfate 2 puff INHALATION DAILY PRN 08/05/20 08/05/20 History lorazepam 1 mg PO DAILY PRN 08/05/20 08/05/20 History quetiapine 100 mg PO BEDTIME 08/05/20 08/05/20 History quetiapine 100 mg PO DAILY PRN 08/05/20 08/05/20 History Allergies Allergies Allergy/AdvReac Type Severity Reaction Status Date / Time lithium [[place]] Allergy Severe TOXICITY Verified 07/28/20 18:08 thiothixene Allergy Severe SWELLING Verified 08/05/20 07:28 barium sulfate Allergy Intermediate NAUSEA & Verified 08/05/20 07:28 [BARIUM SULFATE] VOMITING haloperidol Allergy Intermediate MUSCLE Verified 07/28/20 18:08 TENSION IN LEGS benztropine Allergy Unknown benztropine Verified 08/05/20 07:28 mesylate- unknown diphenhydramine Allergy Unknown urinary Verified 08/05/20 07:28 [From Benadryl] retention fluphenazine Allergy Unknown UNKNOWN Verified 08/05/20 07:28 gabapentin [From NEURONTIN] Allergy Unknown UNKNOWN Verified 07/28/20 18:08 olanzapine [Zyprexa] AdvReac Unknown confusion Verified 08/05/20 07:28 prolixen Allergy Unknown Unknown Uncoded 07/28/20 16:56 Mental Status Exam Mental Status Exam Narrative: somewhat disheveled limited engagement in mileu, Patient Appearance: Disheveled and Unkempt Patient Orientation: Person and Situation ( I am in the ) Level of Consciousness: Awake and Alert Patient Behavior: Posturing, Suspicious, Aggressive, Belligerent and Verbal Threats Mood Description: Suspicious, Depressed, Blunted and Angry Affect Description: Suspicious, Depressed and Angry Ability to Follow Directions: Fair Speech Pattern: Mumbled and Includes Profanity Delusions: Paranoid Ideation Thought Process: Illogical and Distracted Thought Content: positive for [place]overty of Content, positive for Tangential, positive for Disorganized and positive for Homicidal Ideation ( threatening) Depressive Symptoms: Increased Anxiety and Increased Irritability Abnormal Motor Activity Signs and Symptoms: Aggression Judgement: Poor Judgement and Insight: patient does not believe he has a mental illness does not need treatment becomes threatening when asked questions stating on Assessment & Plan Assessment & Plan (1) Schizoaffective disorder: Status: Acute Code(s): F25.9 - Schizoaffective disorder, unspecified (2) Aggression: Status: Acute Code(s): R46.89 - Other symptoms and signs involving appearance and behavior (3) Cardiac arrhythmia: Status: Acute Code(s): I49.9 - Cardiac arrhythmia, unspecified Assessment and Plan: monitor QT with introduction of medication. Will try Invega with consideration of potentially long-acting injectable. Continue Depakote this has been helpful. Patient on one-to-one secondary to agitated aggressive and threatening behavior with recent violence poor judgment Informed Consent: does not understand Reason for continued inpatient stay Substantial Risk for: harm to others, inability to function and rapid decompensation
[2020-08-11 14:00] VITALS: BP 131/73; PULSE 92
[2020-08-11] MEDS: Aspirin 81 MG TAB.CHEW PO (14:00)
[2020-08-11] MEDS: Metoprolol Succinate ER 25 MG TAB.ER.24H 37.5 MG PO ×2 (14:00→20:30)
[2020-08-11] MEDS: Cholecalciferol (Vitamin D3) 25 MCG TABLET PO (14:00)
--- NOTE | 2020-08-11 16:28 | PC.NURSE ---
1400 PATIENT REPORTS EPIGASTRIC PAIN. PATIENT DENIES N/V, AFEBRILE, ABDOMEN NON TENDER. BP 131/73 HR 92. PATIENT DECLINED PRN MEDICATION. PATIENT REPORTS LAST BM THIS MORNING. CHECK IN WITH PATIENT AT 1515 NO FURTHER COMPLAINTS.
[2020-08-11 16:31] VITALS: BP 152/61; PULSE 100; TEMP 36.4
[2020-08-11 17:22] VITALS: BP 152/61; PULSE 100; TEMP 36.4
[2020-08-11 20:30] VITALS: BP 114/68; PULSE 97
[2020-08-11 20:33] VITALS: TEMP 36.6
[2020-08-11] MEDS: QUEtiapine Fumarate 100 MG TABLET PO (20:34)
[2020-08-11] MEDS: Topiramate 25 MG TABLET 50 MG PO (20:34)
[2020-08-11] MEDS: Docusate Sodium 100 MG CAPSULE PO (20:43)
[2020-08-11] MEDS: Atorvastatin Calcium 20 MG TABLET PO (20:43)
[2020-08-12 06:00] VITALS: BP 112/70; PULSE 81; TEMP 36.1
[2020-08-12 06:40] VITALS: BP 112/70; PULSE 81; RESP 18; TEMP 35.9; O2SAT 97
[2020-08-12 07:00] VITALS: BMI 33.9
[2020-08-12 08:11] VITALS: BP 112/70; PULSE 81
[2020-08-12] MEDS: Metoprolol Succinate ER 25 MG TAB.ER.24H 37.5 MG PO ×2 (08:11→22:48)
[2020-08-12] MEDS: Paliperidone ER 3 MG TAB.ER.24 PO (08:12)
[2020-08-12] MEDS: Divalproex Sodium ER 250 MG TAB.ER.24H 750 MG PO (08:12)
[2020-08-12] MEDS: Aspirin 81 MG TAB.CHEW PO (08:12)
[2020-08-12] MEDS: Cholecalciferol (Vitamin D3) 25 MCG TABLET PO (08:13)
[2020-08-12] MEDS: Docusate Sodium 100 MG CAPSULE PO (08:13)
--- NOTE | 2020-08-12 12:05 | P.PNPSI_ITS ---
Subjective Subjective Date of Service: 08/12/20 Reason For Visit: Psychosis Subjective Notes: Haines Order and Section 12B Interim History: or the patient has been irritable dysphoric thought blocking was unable to take care himself in the community unable to cooperate. Also periods of irritability and agitation he did take Invega and Depakote this morning Medication Compliance: Intermittent Attending Groups: No Mental Status Exam Mental Status Exam Patient Appearance: Disheveled and Perspiring Patient Orientation: Person and Place Level of Consciousness: Awake Patient Behavior: Posturing, Aggressive, Swearing and Confused Mood Description: Withdrawn, Constricted, Depressed, Blunted and Angry Affect Description: Depressed, Labile and Angry Patient Cognition Impaired: Yes Ability to Follow Directions: Poor Speech Pattern: Impoverished Memory Description: Immediate Impaired, Recent Impaired and Working Impaired Delusions: Paranoid Ideation Thought Process: Illogical and Confusion Thought Content: positive for [place], positive for Loose Associations and positive for Thought Blocking Depressive Symptoms: Difficulty Concentrating Abnormal Motor Activity Signs and Symptoms: Aggression and Psychomotor Retar dation Judgement: Poor Diagnostics Vital Signs (24Hr): Vital Signs - 24 hr 08/11/20 14:00 08/11/20 16:31 08/11/20 17:22 Temperature 97.6 F 97.6 F Pulse Rate 92 100 100 Respiratory Rate Blood Pressure 131/73 152/61 H 152/61 H Pulse Oximetry 08/11/20 20:30 08/11/20 20:33 08/12/20 06:00 Temperature 97.8 F 97.0 F Pulse Rate 97 81 Respiratory Rate Blood Pressure 114/68 112/70 Pulse Oximetry 08/12/20 06:40 08/12/20 08:11 Temperature 96.6 F L Pulse Rate 81 81 Respiratory Rate 18 Blood Pressure 112/70 112/70 Pulse Oximetry 97 Body Mass Index 33.2 Labs Results: 08/05/20 13:17 08/05/20 13:17 Labs: Laboratory Results - last 48 hr 08/10/20 12:45 Coronavirus (PCR) NEGATIVE Medications Medications Current Medications Generic Name Dose Route Start Last Admin Trade Name Freq PRN Reason Stop Dose Admin Albuterol Sulfate 2 puff 08/05/20 19:32 08/11/20 06:50 Albuterol Sulfate 90 Mcg 8 Gm Inhaler INHALE 2 puff DAILY PRN Administration asthma Aspirin 81 mg 08/06/20 09:00 08/12/20 08:12 Aspirin 81 Mg Tab.Chew PO 81 mg DAILY OZZY Administration Atorvastatin Calcium 20 mg 08/05/20 21:00 08/11/20 20:43 Atorvastatin Calcium 20 Mg Tablet PO 20 mg BEDTIME OZZY Administration Divalproex Sodium 750 mg 08/06/20 09:00 08/12/20 08:12 Divalproex Sodium Er 250 Mg Tab.Er.24h PO 750 mg DAILY OZZY Administration Docusate Sodium 100 mg 08/05/20 21:00 08/12/20 08:13 Docusate Sodium 100 Mg Capsule PO 100 mg BID@0830,2100 OZZY Administration Lorazepam 1 mg 08/09/20 16:32 08/11/20 18:37 Lorazepam 1 Mg Tablet PO 1 mg Q6H PRN Administration anxiety/restlessness Metoprolol Succinate 37.5 mg 08/05/20 21:00 08/12/20 08:11 Metoprolol Succinate Er 25 Mg Tab.Er.24h PO 37.5 mg BID OZZY Administration Protocol Paliperidone 3 mg 08/12/20 09:00 08/12/20 08:12 Paliperidone Er 3 Mg Tab.Er.24 PO 3 mg DAILY OZZY Administration Quetiapine Fumarate 100 mg 08/05/20 21:00 08/11/20 20:34 Quetiapine Fumarate 100 Mg Tablet PO 100 mg BEDTIME OZZY Administration Quetiapine Fumarate 100 mg 08/05/20 19:32 08/10/20 23:58 Quetiapine Fumarate 100 Mg Tablet PO 100 mg DAILY PRN Administration Anxiety/Restlessness Topiramate 50 mg 08/05/20 21:00 08/11/20 20:34 Topiramate 25 Mg Tablet PO 50 mg BEDTIME OZZY Administration Vitamin D 25 mcg 08/06/20 09:00 08/12/20 08:13 Cholecalciferol (Vitamin D3) 25 Mcg Tablet PO 25 mcg DAILY OZZY Administration Allergies Allergies Allergy/AdvReac Type Severity Reaction Status Date / Time lithium [[place]] Allergy Severe TOXICITY Verified 07/28/20 18:08 thiothixene Allergy Severe SWELLING Verified 08/05/20 07:28 barium sulfate Allergy Intermediate NAUSEA & Verified 08/05/20 07:28 [BARIUM SULFATE] VOMITING haloperidol Allergy Intermediate MUSCLE Verified 07/28/20 18:08 TENSION IN LEGS benztropine Allergy Unknown benztropine Verified 08/05/20 07:28 mesylate- unknown diphenhydramine Allergy Unknown urinary Verified 08/05/20 07:28 [From Benadryl] retention fluphenazine Allergy Unknown UNKNOWN Verified 08/05/20 07:28 gabapentin [From NEURONTIN] Allergy Unknown UNKNOWN Verified 07/28/20 18:08 olanzapine [Zyprexa] AdvReac Unknown confusion Verified 08/05/20 07:28 prolixen Allergy Unknown Unknown Uncoded 07/28/20 16:56 Assessment & Plan Assessment & Plan (1) Aggression: Status: Acute Code(s): R46.89 - Other symptoms and signs involving appearance and behavior (2) Schizoaffective disorder: Status: Acute Code(s): F25.9 - Schizoaffective disorder, unspecified Assessment and Plan: will restarted clozapine maintain a small dose in case there is any withdrawal psychosis. The patient has not been stable for an extended period of time or he was somewhat less agitated on Depakote restart Depakote start Invega monitor EKG IM Zyprexa if needed needs referral for longer-term hospitalization give his is inability to stabilize in the community Greater than 50% of the session was spent on counseling and/or coordination of care Patient educated on: medication risk/benefits Informed Consent: does not understand Reason for contiued inpatient stay Substantial Risk for: harm to others, inability to function, rapid decompen sation and med/psych decompensation
[2020-08-12] MEDS: LORazepam 1 MG TABLET PO (13:56)
[2020-08-12] MEDS: QUEtiapine Fumarate 100 MG TABLET PO ×2 (13:58→22:42)
[2020-08-12] MEDS: clonazePAM 1 MG TABLET PO (18:28)
[2020-08-12] MEDS: QUEtiapine Fumarate 200 MG TABLET PO (18:28)
[2020-08-12] MEDS: Topiramate 25 MG TABLET 50 MG PO (22:42)
[2020-08-12] MEDS: Atorvastatin Calcium 20 MG TABLET PO (22:42)
[2020-08-12] MEDS: cloZAPine 25 MG TABLET PO (22:42)
[2020-08-12 22:48] VITALS: BP 135/73; PULSE 95
[2020-08-12 22:51] VITALS: TEMP 35.9
[2020-08-13] MEDS: QUEtiapine Fumarate 100 MG TABLET PO ×4 (02:30→20:29)
[2020-08-13 06:00] VITALS: BP 148/72; PULSE 108; TEMP 36.6
[2020-08-13] MEDS: Divalproex Sodium ER 250 MG TAB.ER.24H 750 MG PO (08:25)
[2020-08-13] MEDS: Aspirin 81 MG TAB.CHEW PO (08:25)
[2020-08-13] MEDS: Cholecalciferol (Vitamin D3) 25 MCG TABLET PO (08:25)
[2020-08-13] MEDS: Docusate Sodium 100 MG CAPSULE PO (08:25)
[2020-08-13] MEDS: Paliperidone ER 3 MG TAB.ER.24 PO (08:25)
[2020-08-13 08:26] VITALS: BP 148/72; PULSE 108
[2020-08-13] MEDS: Metoprolol Succinate ER 25 MG TAB.ER.24H 37.5 MG PO ×2 (08:26→20:26)
[2020-08-13] MEDS: OLANZapine 10 MG VIAL 5 MG IM (14:03)
[2020-08-13] MEDS: clonazePAM 1 MG TABLET PO ×2 (16:34→20:29)
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
[2020-08-13] MEDS: cloZAPine 25 MG TABLET 50 MG PO (20:25)
[2020-08-13] MEDS: Topiramate 25 MG TABLET 50 MG PO (20:25)
[2020-08-13] MEDS: Atorvastatin Calcium 20 MG TABLET PO (20:25)
[2020-08-13 20:26] VITALS: BP 132/71; PULSE 104
[2020-08-13 20:35] VITALS: TEMP 36.4
[2020-08-14] MEDS: Divalproex Sodium ER 250 MG TAB.ER.24H 750 MG PO (08:04)
[2020-08-14] MEDS: Paliperidone ER 3 MG TAB.ER.24 PO (08:04)
[2020-08-14] MEDS: OLANZapine 5 MG TABLET PO (08:06)
[2020-08-14] MEDS: Aspirin 81 MG TAB.CHEW PO (08:06)
[2020-08-14] MEDS: Cholecalciferol (Vitamin D3) 25 MCG TABLET PO ×2 (08:20→10:56)
[2020-08-14 10:55] VITALS: BP 131/76; PULSE 93
[2020-08-14] MEDS: Metoprolol Succinate ER 25 MG TAB.ER.24H 37.5 MG PO ×2 (10:55→20:34)
[2020-08-14] MEDS: clonazePAM 1 MG TABLET PO (10:57)
[2020-08-14] MEDS: Docusate Sodium 100 MG CAPSULE PO ×2 (11:17→20:34)
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
[2020-08-14 18:00] VITALS: BP 138/77; PULSE 101; PULSE 104; TEMP 36.3
[2020-08-14 20:34] VITALS: BP 138/77; PULSE 101
[2020-08-14] MEDS: QUEtiapine Fumarate 100 MG TABLET PO (20:34)
[2020-08-14] MEDS: Atorvastatin Calcium 20 MG TABLET PO (20:34)
[2020-08-14] MEDS: Topiramate 25 MG TABLET 50 MG PO (20:34)
[2020-08-14] MEDS: cloZAPine 100 MG TABLET PO (20:37)
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
[2020-08-15 06:28] VITALS: BP 115/66; PULSE 96; RESP 16; TEMP 35.8; O2SAT 95
[2020-08-15] MEDS: Paliperidone ER 3 MG TAB.ER.24 PO (08:10)
[2020-08-15] MEDS: Divalproex Sodium ER 250 MG TAB.ER.24H 750 MG PO (08:10)
[2020-08-15] MEDS: Docusate Sodium 100 MG CAPSULE PO ×2 (08:10→21:20)
[2020-08-15] MEDS: Aspirin 81 MG TAB.CHEW PO (08:10)
[2020-08-15 08:12] VITALS: BP 115/66; PULSE 96
[2020-08-15] MEDS: Metoprolol Succinate ER 25 MG TAB.ER.24H 37.5 MG PO ×2 (08:12→20:02)
--- NOTE | 2020-08-15 12:44 | HO.PSYCHPN ---
Subjective Subjective Date of Service: 08/15/20 Reason For Visit: Psychosis Subjective Notes: Law Warning, Haines Order and Legal Status (Section 7) Interim History: Navid had a good day today. He was calm and kept to himself. He did not engage with this information writer, rather walked away. Medication Compliance: Intermittent Side effects from medications: No Attending Groups: No Review of Systems Acute medical concerns: No Medical Review of Systems: unchanged Mental Status Exam Mental Status Exam Patient Appearance: Disheveled and Perspiring Patient Orientation: Person and Place Level of Consciousness: Awake Patient Behavior: Posturing, Aggressive, Swearing, Invasion - Personal Space and Confused Mood Description: Withdrawn, Constricted, Depressed, Blunted and Angry Affect Description: Depressed, Labile and Angry Patient Cognition Impaired: Yes Ability to Follow Directions: Poor Speech Pattern: Impoverished and Includes Profanity Memory Description: Immediate Impaired, Recent Impaired and Working Impaired Delusions: Paranoid Ideation and Present Thought Process: Illogical and Confusion Thought Content: positive for [place], positive for Loose Associations, positive for Thought Blocking, negative for Suicidal Ideation and negative for Homicidal Ideation Depressive Symptoms: Difficulty Concentrating Abnormal Motor Activity Signs and Symptoms: Aggression and Psychomotor Retardation Judgement: Poor Diagnostics Vital Signs (24Hr): Vital Signs - 24 hr 08/14/20 18:00 08/14/20 20:34 08/15/20 06:28 Temperature 97.3 F 96.5 F L Pulse Rate 104 H 101 H 96 Respiratory Rate 16 Blood Pressure 138/77 138/77 115/66 Pulse Oximetry 95 08/15/20 08:12 Temperature Pulse Rate 96 Respiratory Rate Blood Pressure 115/66 Pulse Oximetry Body Mass Index 33.9 Labs Results: 08/05/20 13:17 08/05/20 13:17 Medications Medications Current Medications Generic Name Dose Route Start Last Admin Trade Name Freq PRN Reason Stop Dose Admin Albuterol Sulfate 2 puff 08/05/20 19:32 08/11/20 06:50 Albuterol Sulfate 90 Mcg 8 Gm Inhaler INHALE 2 puff DAILY PRN Administration asthma Aspirin 81 mg 08/06/20 09:00 08/15/20 08:10 Aspirin 81 Mg Tab.Chew PO 81 mg DAILY OZZY Administration Atorvastatin Calcium 20 mg 08/05/20 21:00 08/14/20 20:34 Atorvastatin Calcium 20 Mg Tablet PO 20 mg BEDTIME OZZY Administration Clonazepam 1 mg 08/13/20 13:37 08/14/20 10:57 Clonazepam 1 Mg Tablet PO 1 mg BID PRN Administration Psychosis Clozapine 100 mg 08/14/20 21:00 08/14/20 20:37 Clozapine 100 Mg Tablet PO 100 mg BEDTIME OZZY Administration Divalproex Sodium 750 mg 08/06/20 09:00 08/15/20 08:10 Divalproex Sodium Er 250 Mg Tab.Er.24h PO 750 mg DAILY OZZY Administration Docusate Sodium 100 mg 08/05/20 21:00 08/15/20 08:10 Docusate Sodium 100 Mg Capsule PO 100 mg BID@0830,2100 OZZY Administration Metoprolol Succinate 37.5 mg 08/05/20 21:00 08/15/20 08:12 Metoprolol Succinate Er 25 Mg Tab.Er.24h PO 37.5 mg BID OZZY Administration Protocol Olanzapine 5 mg 08/13/20 13:43 Olanzapine 10 Mg Vial IM BID PRN Psychosis Olanzapine 5 mg 08/13/20 13:48 08/13/20 14:03 Olanzapine 10 Mg Vial IM 5 mg DAILY PRN Administration Psychosis Paliperidone 3 mg 08/12/20 09:00 08/15/20 08:10 Paliperidone Er 3 Mg Tab.Er.24 PO 3 mg DAILY OZZY Administration Quetiapine Fumarate 100 mg 08/05/20 21:00 08/14/20 20:34 Quetiapine Fumarate 100 Mg Tablet PO 100 mg BEDTIME OZZY Administration Quetiapine Fumarate 100 mg 08/13/20 13:34 08/13/20 20:29 Quetiapine Fumarate 100 Mg Tablet PO 100 mg RQ4H PRN Administration Anxiety/Restlessness Topiramate 50 mg 08/05/20 21:00 08/14/20 20:34 Topiramate 25 Mg Tablet PO 50 mg BEDTIME OZZY Administration Vitamin D 25 mcg 08/06/20 09:00 08/14/20 10:56 Cholecalciferol (Vitamin D3) 25 Mcg Tablet PO 25 mcg DAILY OZZY Administration Allergies Allergies Allergy/AdvReac Type Severity Reaction Status Date / Time lithium [[place]] Allergy Severe TOXICITY Verified 07/28/20 18:08 thiothixene Allergy Severe SWELLING Verified 08/05/20 07:28 barium sulfate Allergy Intermediate NAUSEA & Verified 08/05/20 07:28 [BARIUM SULFATE] VOMITING haloperidol Allergy Intermediate MUSCLE Verified 07/28/20 18:08 TENSION IN LEGS benztropine Allergy Unknown benztropine Verified 08/05/20 07:28 mesylate- unknown diphenhydramine Allergy Unknown urinary Verified 08/05/20 07:28 [From Benadryl] retention fluphenazine Allergy Unknown UNKNOWN Verified 08/05/20 07:28 gabapentin [From NEURONTIN] Allergy Unknown UNKNOWN Verified 07/28/20 18:08 prolixen Allergy Unknown Unknown Uncoded 07/28/20 16:56 Assessment & Plan Assessment & Plan (1) Schizoaffective disorder: Status: Acute Code(s): F25.9 - Schizoaffective disorder, unspecified Assessment and Plan: CT current plan Greater than 50% of the session was spent on counseling and/or coordination of care Patient educated on: diagnosis and medication risk/benefits Informed Consent: does not understand Reason for contiued inpatient stay Substantial Risk for: rapid decompensation
[2020-08-15] MEDS: clonazePAM 1 MG TABLET PO (14:54)
[2020-08-15] MEDS: QUEtiapine Fumarate 100 MG TABLET PO ×3 (14:54→20:02)
[2020-08-15 18:00] VITALS: BP 162/90; PULSE 105; TEMP 36.2
[2020-08-15] MEDS: cloZAPine 100 MG TABLET PO (20:01)
[2020-08-15] MEDS: Topiramate 25 MG TABLET 50 MG PO (20:01)
[2020-08-15 20:02] VITALS: BP 136/7; PULSE 104
[2020-08-15] MEDS: Atorvastatin Calcium 20 MG TABLET PO (20:02)
[2020-08-16 08:30] VITALS: BP 122/67; PULSE 97
[2020-08-16] MEDS: Metoprolol Succinate ER 25 MG TAB.ER.24H 37.5 MG PO ×2 (08:30→22:45)
[2020-08-16] MEDS: Divalproex Sodium ER 250 MG TAB.ER.24H 750 MG PO (08:31)
[2020-08-16] MEDS: Docusate Sodium 100 MG CAPSULE PO ×2 (08:32→22:43)
[2020-08-16] MEDS: Aspirin 81 MG TAB.CHEW PO (08:32)
[2020-08-16] MEDS: Cholecalciferol (Vitamin D3) 25 MCG TABLET PO (08:32)
[2020-08-16] MEDS: Paliperidone ER 3 MG TAB.ER.24 PO (08:33)
--- NOTE | 2020-08-16 19:19 | HO.PSYCHPN ---
Subjective Subjective Reason For Visit: Psychosis Subjective Notes: Haines Order Interim History: Patient remains bizarre and psychotic. Internally preoccupied irrelevant speech less aggressive Medication Compliance: Intermittent Side effects from medications: No Attending Groups: No Mental Status Exam Mental Status Exam Narrative: somewhat disheveled limited engagement in [place], Patient Appearance: Disheveled and Perspiring Patient Orientation: Person and Place Level of Consciousness: Awake Patient Behavior: Posturing, Belligerent, Swearing, Invasion - Personal Space and Confused Mood Description: Withdrawn, Constricted, Depressed, Blunted and Angry Affect Description: Labile, Blunted and Angry Patient Cognition Impaired: Yes Ability to Follow Directions: Poor Speech Pattern: Impoverished, Rambling and Includes Profanity Memory Description: Immediate Impaired, Recent Impaired and Working Impaired Thought Content: positive for Loose Associations, positive for Disorganized and positive for Homicidal Ideation (physically aggressive ) Depressive Symptoms: Increased Irritability, Significant Weight Gain and Difficulty Concentrating Abnormal Motor Activity Signs and Symptoms: Restlessness Judgement: Poor Diagnostics Vital Signs (24Hr): Vital Signs - 24 hr 08/15/20 20:02 08/16/20 08:30 Pulse Rate 104 H 97 Blood Pressure 136/7 L 122/67 Body Mass Index 33.9 Labs Results: 08/05/20 13:17 08/05/20 13:17 Medications Medications Current Medications Generic Name Dose Route Start Last Admin Trade Name Freq PRN Reason Stop Dose Admin Albuterol Sulfate 2 puff 08/05/20 19:32 08/11/20 06:50 Albuterol Sulfate 90 Mcg 8 Gm Inhaler INHALE 2 puff DAILY PRN Administration asthma Aspirin 81 mg 08/06/20 09:00 08/16/20 08:32 Aspirin 81 Mg Tab.Chew PO 81 mg DAILY OZZY Administration Atorvastatin Calcium 20 mg 08/05/20 21:00 08/15/20 20:02 Atorvastatin Calcium 20 Mg Tablet PO 20 mg BEDTIME OZZY Administration Clonazepam 1 mg 08/13/20 13:37 08/15/20 14:54 Clonazepam 1 Mg Tablet PO 1 mg BID PRN Administration Psychosis Clozapine 100 mg 08/14/20 21:00 08/15/20 20:01 Clozapine 100 Mg Tablet PO 100 mg BEDTIME OZZY Administration Divalproex Sodium 750 mg 08/06/20 09:00 08/16/20 08:31 Divalproex Sodium Er 250 Mg Tab.Er.24h PO 750 mg DAILY OZZY Administration Docusate Sodium 100 mg 08/05/20 21:00 08/16/20 08:32 Docusate Sodium 100 Mg Capsule PO 100 mg BID@0830,2100 OZZY Administration Metoprolol Succinate 37.5 mg 08/05/20 21:00 08/16/20 08:30 Metoprolol Succinate Er 25 Mg Tab.Er.24h PO 37.5 mg BID OZZY Administration Protocol Olanzapine 5 mg 08/13/20 13:43 Olanzapine 10 Mg Vial IM BID PRN Psychosis Olanzapine 5 mg 08/13/20 13:48 08/13/20 14:03 Olanzapine 10 Mg Vial IM 5 mg DAILY PRN Administration Psychosis Paliperidone 3 mg 08/12/20 09:00 08/16/20 08:33 Paliperidone Er 3 Mg Tab.Er.24 PO 3 mg DAILY OZZY Administration Quetiapine Fumarate 100 mg 08/05/20 21:00 08/15/20 20:02 Quetiapine Fumarate 100 Mg Tablet PO 100 mg BEDTIME OZZY Administration Quetiapine Fumarate 100 mg 08/13/20 13:34 08/15/20 18:53 Quetiapine Fumarate 100 Mg Tablet PO 100 mg RQ4H PRN Administration Anxiety/Restlessness Topiramate 50 mg 08/05/20 21:00 08/15/20 20:01 Topiramate 25 Mg Tablet PO 50 mg BEDTIME OZZY Administration Vitamin D 25 mcg 08/06/20 09:00 08/16/20 08:32 Cholecalciferol (Vitamin D3) 25 Mcg Tablet PO 25 mcg DAILY OZZY Administration Allergies Allergies Allergy/AdvReac Type Severity Reaction Status Date / Time lithium [[place]] Allergy Severe TOXICITY Verified 07/28/20 18:08 thiothixene Allergy Severe SWELLING Verified 08/05/20 07:28 barium sulfate Allergy Intermediate NAUSEA & Verified 08/05/20 07:28 [BARIUM SULFATE] VOMITING haloperidol Allergy Intermediate MUSCLE Verified 07/28/20 18:08 TENSION IN LEGS benztropine Allergy Unknown benztropine Verified 08/05/20 07:28 mesylate- unknown diphenhydramine Allergy Unknown urinary Verified 08/05/20 07:28 [From Benadryl] retention fluphenazine Allergy Unknown UNKNOWN Verified 08/05/20 07:28 gabapentin [From NEURONTIN] Allergy Unknown UNKNOWN Verified 07/28/20 18:08 prolixen Allergy Unknown Unknown Uncoded 07/28/20 16:56 Assessment & Plan Assessment & Plan (1) Aggression: Status: Acute Code(s): R46.89 - Other symptoms and signs involving appearance and behavior (2) Schizoaffective disorder: Status: Acute Code(s): F25.9 - Schizoaffective disorder, unspecified Assessment and Plan: invega clozapine depakote monitor [facility]aponse [facility] Greater than 50% of the session was spent on counseling and/or coordination of care Reason for contiued inpatient stay Substantial Risk for: harm to self, inability to function and rapid decompensation
[2020-08-16] MEDS: Atorvastatin Calcium 20 MG TABLET PO (22:44)
[2020-08-16] MEDS: Topiramate 25 MG TABLET 50 MG PO (22:44)
[2020-08-16 22:45] VITALS: BP 131/71; BP 131/79; PULSE 109; TEMP 35.8
[2020-08-16] MEDS: cloZAPine 100 MG TABLET PO (22:46)
[2020-08-16] MEDS: clonazePAM 1 MG TABLET PO (23:54)
[2020-08-16] MEDS: QUEtiapine Fumarate 100 MG TABLET PO (23:54)
[2020-08-17] MEDS: LORazepam 1 MG TABLET 2 MG PO (01:06)
[2020-08-17] MEDS: OLANZapine ODT 10 MG TAB.RAPDIS TRANSLINGU (01:06)
[2020-08-17 09:00] VITALS: BP 133/69; PULSE 102
[2020-08-17] MEDS: Docusate Sodium 100 MG CAPSULE PO ×2 (09:06→21:11)
[2020-08-17] MEDS: Cholecalciferol (Vitamin D3) 25 MCG TABLET PO (09:06)
[2020-08-17] MEDS: Aspirin 81 MG TAB.CHEW PO (09:06)
[2020-08-17] MEDS: Paliperidone ER 6 MG TAB.ER.24 PO (09:06)
[2020-08-17] MEDS: Divalproex Sodium ER 250 MG TAB.ER.24H 750 MG PO (09:06)
[2020-08-17 09:07] VITALS: BP 133/69; PULSE 102
[2020-08-17] MEDS: Metoprolol Succinate ER 25 MG TAB.ER.24H 37.5 MG PO ×2 (09:07→21:12)
[2020-08-17 09:18] VITALS: BP 133/69; PULSE 102; TEMP 36.3; O2SAT 99
[2020-08-17 18:00] VITALS: BP 112/61; PULSE 90; TEMP 36.7
[2020-08-17] MEDS: Topiramate 25 MG TABLET 50 MG PO (21:11)
[2020-08-17 21:12] VITALS: BP 112/66; PULSE 90
[2020-08-17] MEDS: cloZAPine 100 MG TABLET PO (21:14)
[2020-08-17] MEDS: Atorvastatin Calcium 20 MG TABLET PO (21:14)
--- NOTE | 2020-08-17 21:41 | HO.PSYCHPN ---
Subjective Subjective Reason For Visit: Psychosis Interim History: Patient remains bizarre and psychotic. Internally preoccupied irrelevant speech less aggressive but remains hostile Mental Status Exam Mental Status Exam Narrative: irritable dysphoric difficult to engage in meaningful conversation Patient Appearance: Disheveled and Unkempt Patient Orientation: Person and Place Level of Consciousness: Awake Patient Behavior: Posturing, Belligerent, Swearing and Confused Mood Description: Withdrawn, Constricted, Depressed, Blunted and Angry Affect Description: Labile, Blunted and Angry Patient Cognition Impaired: Yes Ability to Follow Directions: Poor Speech Pattern: Impoverished, Rambling and Includes Profanity Memory Description: Immediate Impaired, Recent Impaired and Working Impaired Thought Process: Disoriented, Incoherent and Illogical Thought Content: positive for Disorganized, negative for Suicidal Ideation and negative for Homicidal Ideation Depressive Symptoms: Increased Irritability Abnormal Motor Activity Signs and Symptoms: Aggression Judgement: Poor Diagnostics Vital Signs (24Hr): Vital Signs - 24 hr 08/16/20 22:45 08/17/20 09:00 08/17/20 09:07 Temperature 96.4 F L Pulse Rate 109 H 102 H 102 H Blood Pressure 131/79 133/69 133/69 Pulse Oximetry 08/17/20 09:18 08/17/20 18:00 08/17/20 21:12 Temperature 97.3 F 98.1 F Pulse Rate 102 H 90 90 Blood Pressure 133/69 112/61 112/66 Pulse Oximetry 99 Body Mass Index 33.9 Labs Results: 08/05/20 13:17 08/05/20 13:17 Medications Medications Current Medications Generic Name Dose Route Start Last Admin Trade Name Freq PRN Reason Stop Dose Admin Albuterol Sulfate 2 puff 08/05/20 19:32 08/11/20 06:50 Albuterol Sulfate 90 Mcg 8 Gm Inhaler INHALE 2 puff DAILY PRN Administration asthma Aspirin 81 mg 08/06/20 09:00 08/17/20 09:06 Aspirin 81 Mg Tab.Chew PO 81 mg DAILY OZZY Administration Atorvastatin Calcium 20 mg 08/05/20 21:00 08/17/20 21:14 Atorvastatin Calcium 20 Mg Tablet PO 20 mg BEDTIME OZZY Administration Clonazepam 1 mg 08/13/20 13:37 08/16/20 23:54 Clonazepam 1 Mg Tablet PO 1 mg BID PRN Administration Psychosis Clozapine 100 mg 08/14/20 21:00 08/17/20 21:14 Clozapine 100 Mg Tablet PO 100 mg BEDTIME OZZY Administration Divalproex Sodium 750 mg 08/06/20 09:00 08/17/20 09:06 Divalproex Sodium Er 250 Mg Tab.Er.24h PO 750 mg DAILY OZZY Administration Docusate Sodium 100 mg 08/05/20 21:00 08/17/20 21:11 Docusate Sodium 100 Mg Capsule PO 100 mg BID@0830,2100 OZZY Administration Lorazepam 2 mg 08/17/20 00:49 08/17/20 01:06 Lorazepam 1 Mg Tablet PO 2 mg ONCE PRN Administration anxiety/restlessness Lorazepam 2 mg 08/17/20 00:49 Lorazepam 2 Mg/Ml Vial IM ONCE PRN anxiety/restlessness Metoprolol Succinate 37.5 mg 08/05/20 21:00 08/17/20 21:12 Metoprolol Succinate Er 25 Mg Tab.Er.24h PO 37.5 mg BID OZZY Administration Protocol Olanzapine 5 mg 08/13/20 13:43 Olanzapine 10 Mg Vial IM BID PRN Psychosis Olanzapine 5 mg 08/13/20 13:48 08/13/20 14:03 Olanzapine 10 Mg Vial IM 5 mg DAILY PRN Administration Psychosis Olanzapine 10 mg 08/17/20 00:49 08/17/20 01:06 Olanzapine Odt 10 Mg Tab.Rapdis TRANSLINGU 10 mg ONCE PRN Administration Psychosis Olanzapine 10 mg 08/17/20 00:49 Olanzapine 10 Mg Vial IM ONCE PRN Psychosis unable to take PO Paliperidone 6 mg 08/17/20 09:00 08/17/20 09:06 Paliperidone Er 6 Mg Tab.Er.24 PO 6 mg DAILY OZZY Administration Quetiapine Fumarate 100 mg 08/13/20 13:34 08/16/20 23:54 Quetiapine Fumarate 100 Mg Tablet PO 100 mg RQ4H PRN Administration Anxiety/Restlessness Quetiapine Fumarate 100 mg 08/16/20 22:10 Quetiapine Fumarate 100 Mg Tablet PO BEDTIME PRN Insomnia Topiramate 50 mg 08/05/20 21:00 08/17/20 21:11 Topiramate 25 Mg Tablet PO 50 mg BEDTIME OZZY Administration Vitamin D 25 mcg 08/06/20 09:00 08/17/20 09:06 Cholecalciferol (Vitamin D3) 25 Mcg Tablet PO 25 mcg DAILY OZZY Administration Allergies Allergies Allergy/AdvReac Type Severity Reaction Status Date / Time lithium [[place]] Allergy Severe TOXICITY Verified 07/28/20 18:08 thiothixene Allergy Severe SWELLING Verified 08/05/20 07:28 barium sulfate Allergy Intermediate NAUSEA & Verified 08/05/20 07:28 [BARIUM SULFATE] VOMITING haloperidol Allergy Intermediate MUSCLE Verified 07/28/20 18:08 TENSION IN LEGS benztropine Allergy Unknown benztropine Verified 08/05/20 07:28 mesylate- unknown diphenhydramine Allergy Unknown urinary Verified 08/05/20 07:28 [From Benadryl] retention fluphenazine Allergy Unknown UNKNOWN Verified 08/05/20 07:28 gabapentin [From NEURONTIN] Allergy Unknown UNKNOWN Verified 07/28/20 18:08 prolixen Allergy Unknown Unknown Uncoded 07/28/20 16:56 Assessment & Plan Assessment & Plan (1) Aggression: Status: Acute Code(s): R46.89 - Other symptoms and signs involving appearance and behavior (2) Schizoaffective disorder: Status: Acute Code(s): F25.9 - Schizoaffective disorder, unspecified Assessment and Plan: invega clozapine depakote monitor reaponse referral to [facility] In[facility]ga increased to 6 mg check EKG Greater than 50% of the session was spent on counseling and/or coordination of care Reason for contiued inpatient stay Substantial Risk for: inability to function and rapid decompensation
[2020-08-18] MEDS: QUEtiapine Fumarate 100 MG TABLET PO ×3 (01:33→20:39)
[2020-08-18] MEDS: clonazePAM 1 MG TABLET PO (01:33)
[2020-08-18 05:15] VITALS: BP 112/62; PULSE 95; RESP 20; TEMP 36.3; O2SAT 96
[2020-08-18 06:00] VITALS: RESP 14; TEMP 36.4; O2SAT 96
[2020-08-18] MEDS: Paliperidone ER 6 MG TAB.ER.24 PO (08:52)
[2020-08-18] MEDS: Divalproex Sodium ER 250 MG TAB.ER.24H 750 MG PO (08:52)
[2020-08-18] MEDS: Aspirin 81 MG TAB.CHEW PO (08:52)
[2020-08-18] MEDS: Docusate Sodium 100 MG CAPSULE PO ×2 (08:52→22:38)
[2020-08-18 08:53] VITALS: BP 135/72; PULSE 98
[2020-08-18] MEDS: Cholecalciferol (Vitamin D3) 25 MCG TABLET PO (08:53)
[2020-08-18] MEDS: Metoprolol Succinate ER 25 MG TAB.ER.24H 37.5 MG PO ×2 (08:53→20:37)
[2020-08-18 12:21] LABS: Clozapine (Clozaril) <10 mcg/L; Norclozapine <10 mcg/L (25-400)
[2020-08-18 17:49] VITALS: BP 124/62; PULSE 97; TEMP 36.3
[2020-08-18 20:37] VITALS: BP 124/62; PULSE 97
[2020-08-18] MEDS: Atorvastatin Calcium 20 MG TABLET PO (20:37)
[2020-08-18] MEDS: cloZAPine 100 MG TABLET PO (20:37)
[2020-08-18] MEDS: Topiramate 25 MG TABLET 50 MG PO (20:37)
--- NOTE | 2020-08-18 23:17 | HO.PSYCHPN ---
Subjective Subjective Reason For Visit: Psychosis Interim History: Patient remains bizarre and psychotic. Internally preoccupied irrelevant speech less aggressive but remains hostile will not speak with this consumer loan underwriter when he is repeatedly approached he has repeatedly been at times physically aggressive he has often hostile and sarcastic and often repeatedly speaking out bizarre irrelevant comments Mental Status Exam Mental Status Exam Narrative: irritable dysphoric difficult to engage in meaningful conversation Patient Appearance: Disheveled and Unkempt Patient Orientation: Person and Place Level of Consciousness: Awake Patient Behavior: Posturing, Restless, Belligerent, Verbal Threats, Swearing and Confused Mood Description: Withdrawn, Constricted, Depressed, Blunted and Angry Affect Description: Labile, Blunted and Angry Patient Cognition Impaired: Yes Ability to Follow Directions: Poor Speech Pattern: Impoverished, Rambling and Includes Profanity Memory Description: Immediate Impaired, Recent Impaired and Working Impaired Diagnostics Vital Signs (24Hr): Vital Signs - 24 hr 08/18/20 05:15 08/18/20 06:00 08/18/20 08:53 Temperature 97.3 F 97.6 F Pulse Rate 95 98 Respiratory Rate 20 14 Blood Pressure 112/62 135/72 Pulse Oximetry 96 96 08/18/20 17:49 08/18/20 20:37 Temperature 97.4 F Pulse Rate 97 97 Respiratory Rate Blood Pressure 124/62 124/62 Pulse Oximetry Body Mass Index 33.9 Labs Results: 08/05/20 13:17 08/05/20 13:17 Labs: Laboratory Results - last 48 hr 08/12/20 21:50 Clozapine <10 Norclozapine <10 L Medications Medications Current Medications Generic Name Dose Route Start Last Admin Trade Name Felipeq PRN Reason Stop Dose Admin Albuterol Sulfate 2 puff 08/05/20 19:32 08/11/20 06:50 Albuterol Sulfate 90 Mcg 8 Gm Inhaler INHALE 2 puff DAILY PRN Administration asthma Aspirin 81 mg 08/06/20 09:00 08/18/20 08:52 Aspirin 81 Mg Tab.Chew PO 81 mg DAILY OZZY Administration Atorvastatin Calcium 20 mg 08/05/20 21:00 08/18/20 20:37 Atorvastatin Calcium 20 Mg Tablet PO 20 mg BEDTIME OZZY Administration Clozapine 100 mg 08/14/20 21:00 08/18/20 20:37 Clozapine 100 Mg Tablet PO 100 mg BEDTIME OZZY Administration Divalproex Sodium 750 mg 08/06/20 09:00 08/18/20 08:52 Divalproex Sodium Er 250 Mg Tab.Er.24h PO 750 mg DAILY OZZY Administration Docusate Sodium 100 mg 08/05/20 21:00 08/18/20 22:38 Docusate Sodium 100 Mg Capsule PO 100 mg BID@0830,2100 OZZY Administration Lorazepam 2 mg 08/17/20 00:49 08/17/20 01:06 Lorazepam 1 Mg Tablet PO 2 mg ONCE PRN Administration anxiety/restlessness Lorazepam 2 mg 08/17/20 00:49 Lorazepam 2 Mg/Ml Vial IM ONCE PRN anxiety/restlessness Metoprolol Succinate 37.5 mg 08/05/20 21:00 08/18/20 20:37 Metoprolol Succinate Er 25 Mg Tab.Er.24h PO 37.5 mg BID OZZY Administration Protocol Olanzapine 5 mg 08/13/20 13:43 Olanzapine 10 Mg Vial IM BID PRN Psychosis Olanzapine 5 mg 08/13/20 13:48 08/13/20 14:03 Olanzapine 10 Mg Vial IM 5 mg DAILY PRN Administration Psychosis Olanzapine 10 mg 08/17/20 00:49 08/17/20 01:06 Olanzapine Odt 10 Mg Tab.Rapdis TRANSLINGU 10 mg ONCE PRN Administration Psychosis Olanzapine 10 mg 08/17/20 00:49 Olanzapine 10 Mg Vial IM ONCE PRN Psychosis unable to take PO Paliperidone 6 mg 08/17/20 09:00 08/18/20 08:52 Paliperidone Er 6 Mg Tab.Er.24 PO 6 mg DAILY OZZY Administration Quetiapine Fumarate 100 mg 08/13/20 13:34 08/18/20 04:51 Quetiapine Fumarate 100 Mg Tablet PO 100 mg RQ4H PRN Administration Anxiety/Restlessness Quetiapine Fumarate 100 mg 08/16/20 22:10 08/18/20 20:39 Quetiapine Fumarate 100 Mg Tablet PO 100 mg BEDTIME PRN Administration Insomnia Topiramate 50 mg 08/05/20 21:00 08/18/20 20:37 Topiramate 25 Mg Tablet PO 50 mg BEDTIME OZZY Administration Vitamin D 25 mcg 08/06/20 09:00 08/18/20 08:53 Cholecalciferol (Vitamin D3) 25 Mcg Tablet PO 25 mcg DAILY OZZY Administration Allergies Allergies Allergy/AdvReac Type Severity Reaction Status Date / Time lithium [[place]] Allergy Severe TOXICITY Verified 07/28/20 18:08 thiothixene Allergy Severe SWELLING Verified 08/05/20 07:28 barium sulfate Allergy Intermediate NAUSEA & Verified 08/05/20 07:28 [BARIUM SULFATE] VOMITING haloperidol Allergy Intermediate MUSCLE Verified 07/28/20 18:08 TENSION IN LEGS benztropine Allergy Unknown benztropine Verified 08/05/20 07:28 mesylate- unknown diphenhydramine Allergy Unknown urinary Verified 08/05/20 07:28 [From Benadryl] retention fluphenazine Allergy Unknown UNKNOWN Verified 08/05/20 07:28 gabapentin [From NEURONTIN] Allergy Unknown UNKNOWN Verified 07/28/20 18:08 prolixen Allergy Unknown Unknown Uncoded 07/28/20 16:56 Assessment & Plan Assessment & Plan (1) Aggression: Status: Acute Code(s): R46.89 - Other symptoms and signs involving appearance and behavior (2) Schizoaffective disorder: Status: Acute Code(s): F25.9 - Schizoaffective disorder, unspecified Assessment and Plan: invega clozapine depakote monitor reaponse referral [facility] Invega 6 mg check EKG check Depakote level increase is tolerated for better control of aggression would benefit from longer term hospitalization patient had no detectable clozapine in his system on 08/12 Section 7 pending 8 patient aggressive hostile Greater than 50% of the session was spent on counseling and/or coordination of care
[2020-08-19 05:25] VITALS: BP 124/59; PULSE 91; RESP 20; TEMP 35.9; O2SAT 95
[2020-08-19] MEDS: QUEtiapine Fumarate 100 MG TABLET PO ×2 (06:40→23:58)
[2020-08-19 09:18] VITALS: BP 124/59; PULSE 91
[2020-08-19] MEDS: Divalproex Sodium ER 250 MG TAB.ER.24H 750 MG PO (09:18)
[2020-08-19] MEDS: Metoprolol Succinate ER 25 MG TAB.ER.24H 37.5 MG PO (09:18)
[2020-08-19] MEDS: Cholecalciferol (Vitamin D3) 25 MCG TABLET PO (09:19)
[2020-08-19] MEDS: Paliperidone ER 6 MG TAB.ER.24 PO (09:19)
[2020-08-19] MEDS: Docusate Sodium 100 MG CAPSULE PO (09:19)
[2020-08-19] MEDS: Aspirin 81 MG TAB.CHEW PO (09:19)
[2020-08-19 18:00] VITALS: BP 137/76; PULSE 99; TEMP 36.4
[2020-08-19 22:06] VITALS: BP 137/76; PULSE 99
[2020-08-19] MEDS: cloZAPine 100 MG TABLET PO (23:58)
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
[2020-08-20] MEDS: OLANZapine 10 MG VIAL IM (02:29)
[2020-08-20] MEDS: LORazepam 2 MG/ML VIAL IM (02:30)
[2020-08-20 09:35] VITALS: BP 130/78; PULSE 108
[2020-08-20] MEDS: Docusate Sodium 100 MG CAPSULE PO (09:35)
[2020-08-20] MEDS: Aspirin 81 MG TAB.CHEW PO (09:35)
[2020-08-20] MEDS: Paliperidone ER 6 MG TAB.ER.24 PO (09:35)
[2020-08-20] MEDS: Metoprolol Succinate ER 25 MG TAB.ER.24H 37.5 MG PO ×2 (09:35→20:55)
[2020-08-20] MEDS: Divalproex Sodium ER 250 MG TAB.ER.24H 750 MG PO (09:35)
[2020-08-20] MEDS: Cholecalciferol (Vitamin D3) 25 MCG TABLET PO (09:35)
[2020-08-20 10:15] VITALS: TEMP 36.4; O2SAT 97
[2020-08-20 20:55] VITALS: BP 135/74; PULSE 103
[2020-08-20] MEDS: cloZAPine 100 MG TABLET PO (20:55)
[2020-08-20] MEDS: Atorvastatin Calcium 20 MG TABLET PO (20:55)
[2020-08-20] MEDS: Topiramate 25 MG TABLET 50 MG PO (20:55)
[2020-08-20 21:05] VITALS: TEMP 36.6
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
[2020-08-21] MEDS: QUEtiapine Fumarate 100 MG TABLET PO ×4 (00:04→21:26)
[2020-08-21 04:15] VITALS: BP 109/67; PULSE 105; RESP 18; TEMP 36.1
[2020-08-21 07:48] VITALS: BP 109/67; PULSE 105
[2020-08-21] MEDS: Metoprolol Succinate ER 25 MG TAB.ER.24H 37.5 MG PO ×2 (07:48→21:22)
[2020-08-21] MEDS: Divalproex Sodium ER 250 MG TAB.ER.24H 750 MG PO (07:49)
[2020-08-21] MEDS: Docusate Sodium 100 MG CAPSULE PO (07:49)
[2020-08-21] MEDS: Aspirin 81 MG TAB.CHEW PO (07:49)
[2020-08-21] MEDS: Paliperidone ER 6 MG TAB.ER.24 PO (07:49)
[2020-08-21] MEDS: Cholecalciferol (Vitamin D3) 25 MCG TABLET PO (07:50)
[2020-08-21 08:23] LABS: Valproate 56.5 mcg/mL (50.0-100.0)
[2020-08-21] MEDS: OLANZapine ODT 10 MG TAB.RAPDIS TRANSLINGU (11:41)
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
[2020-08-21] MEDS: Albuterol Sulfate 90 MCG 8 GM INHALER 2 PUFF INHALE (16:09)
[2020-08-21] MEDS: OLANZapine 10 MG VIAL 5 MG IM (19:10)
[2020-08-21 21:22] VITALS: BP 136/75; PULSE 96
[2020-08-21] MEDS: Atorvastatin Calcium 20 MG TABLET PO (21:22)
[2020-08-21] MEDS: Topiramate 25 MG TABLET 50 MG PO (21:22)
[2020-08-21] MEDS: cloZAPine 25 MG TABLET PO (21:27)
[2020-08-21] MEDS: cloZAPine 100 MG TABLET PO (21:27)
[2020-08-21 21:35] VITALS: TEMP 36.6
[2020-08-22 05:45] VITALS: BP 120/58; PULSE 91; RESP 18; TEMP 35.8
[2020-08-22] MEDS: Paliperidone ER 6 MG TAB.ER.24 PO (08:17)
[2020-08-22] MEDS: Divalproex Sodium ER 250 MG TAB.ER.24H 750 MG PO (08:17)
[2020-08-22] MEDS: Aspirin 81 MG TAB.CHEW PO (08:17)
[2020-08-22 08:18] VITALS: BP 120/58; PULSE 91
[2020-08-22] MEDS: QUEtiapine Fumarate 100 MG TABLET PO ×2 (08:18→22:55)
[2020-08-22] MEDS: Docusate Sodium 100 MG CAPSULE PO (08:18)
[2020-08-22] MEDS: Metoprolol Succinate ER 25 MG TAB.ER.24H 37.5 MG PO ×2 (08:18→22:56)
[2020-08-22] MEDS: Cholecalciferol (Vitamin D3) 25 MCG TABLET PO (08:18)
[2020-08-22] MEDS: OLANZapine 10 MG VIAL IM (11:27)
[2020-08-22] MEDS: clonazePAM 1 MG TABLET PO ×2 (11:50→22:55)
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
[2020-08-22] MEDS: Atorvastatin Calcium 20 MG TABLET PO (22:55)
[2020-08-22] MEDS: Topiramate 25 MG TABLET 50 MG PO (22:55)
[2020-08-22 22:56] VITALS: BP 130/74; PULSE 95
[2020-08-22] MEDS: cloZAPine 100 MG TABLET PO (22:56)
[2020-08-22] MEDS: cloZAPine 25 MG TABLET PO (22:56)
[2020-08-22 23:02] VITALS: TEMP 36.6
[2020-08-23 05:45] VITALS: BP 144/74; PULSE 100; RESP 20; TEMP 36.1
[2020-08-23 08:53] VITALS: BP 144/74; PULSE 100
[2020-08-23] MEDS: Paliperidone ER 6 MG TAB.ER.24 PO (08:53)
[2020-08-23] MEDS: Cholecalciferol (Vitamin D3) 25 MCG TABLET PO (08:53)
[2020-08-23] MEDS: Aspirin 81 MG TAB.CHEW PO (08:53)
[2020-08-23] MEDS: Metoprolol Succinate ER 25 MG TAB.ER.24H 37.5 MG PO ×2 (08:53→19:16)
[2020-08-23] MEDS: clonazePAM 1 MG TABLET PO ×3 (08:53→19:00)
[2020-08-23] MEDS: Docusate Sodium 100 MG CAPSULE PO ×2 (08:53→19:17)
[2020-08-23] MEDS: Divalproex Sodium ER 250 MG TAB.ER.24H 1250 MG PO (08:54)
--- NOTE | 2020-08-23 09:26 | P.PNPSI_ITS ---
Subjective Subjective Date of Service: 08/23/20 Reason For Visit: Psychosis Subjective Notes: Legal Status (s7) Interim History: Nav[place] continues intermittently agitated, loud and threatening. He became quite dysregulated around his court hearing, and recieived a prn clonazepam Medication Compliance: Intermittent Side effects from medications: No Attending Groups: No Review of Systems Acute medical concerns: No Medical Review of Systems: unchanged Mental Status Exam Mental Status Exam Narrative: irritable dysphoric difficult to engage in meaningful conversation; yelling at times Patient Appearance: Disheveled and Bizarre Patient Orientation: Person Level of Consciousness: Restless Patient Behavior: Suspicious, Aggressive, Restless, Invasion - Personal Space, Combative, Uncooperative and Pacing Mood Description: Suspicious, Labile, Blunted and Angry Affect Description: Labile, Blunted, Angry and Apprehensive Patient Cognition Impaired: Yes Ability to Follow Directions: Poor Speech Pattern: Poor Articulation Memory Description: Immediate Impaired, Recent Impaired and Working Impaired Delusions: Paranoid Ideation and Bizarre Thought Process: Distracted Thought Content: positive for Disorganized Depressive Symptoms: Increased Irritability Abnormal Motor Activity Signs and Symptoms: Agitation Judgement: Poor Diagnostics Vital Signs (24Hr): Vital Signs - 24 hr 08/22/20 22:56 08/22/20 23:02 08/23/20 05:45 Temperature 97.8 F 97.0 F Pulse Rate 95 100 Respiratory Rate 20 Blood Pressure 130/74 144/74 H 08/23/20 08:53 Temperature Pulse Rate 100 Respiratory Rate Blood Pressure 144/74 H Body Mass Index 33.9 Labs Results: 08/05/20 13:17 08/05/20 13:17 Medications Medications Current Medications Generic Name Dose Route Start Last Admin Trade Name [place] PRN Reason Stop Dose Admin Albuterol Sulfate 2 puff 08/05/20 19:32 08/21/20 16:09 Albuterol Sulfate 90 Mcg 8 Gm Inhaler INHALE 2 puff DAILY PRN Administration asthma Aspirin 81 mg 08/06/20 09:00 08/23/20 08:53 Aspirin 81 Mg Tab.Chew PO 81 mg DAILY OZZY Administration Atorvastatin Calcium 20 mg 08/05/20 21:00 08/22/20 22:55 Atorvastatin Calcium 20 Mg Tablet PO 20 mg BEDTIME OZZY Administration Clonazepam 1 mg 08/22/20 12:00 08/23/20 08:53 Clonazepam 1 Mg Tablet PO 1 mg BID OZZY Administration Clozapine 25 mg 08/22/20 21:00 08/22/20 22:56 Clozapine 25 Mg Tablet PO 25 mg BEDTIME OZZY Administration Clozapine 100 mg 08/22/20 21:00 08/22/20 22:56 Clozapine 100 Mg Tablet PO 100 mg BEDTIME OZZY Administration Divalproex Sodium 1,250 mg 08/23/20 09:00 08/23/20 08:54 Divalproex Sodium Er 250 Mg Tab.Er.24h PO 1,250 mg DAILY OZZY Administration Docusate Sodium 100 mg 08/05/20 21:00 08/23/20 08:53 Docusate Sodium 100 Mg Capsule PO 100 mg BID@0830,2100 OZZY Administration Metoprolol Succinate 37.5 mg 08/05/20 21:00 08/23/20 08:53 Metoprolol Succinate Er 25 Mg Tab.Er.24h PO 37.5 mg BID OZZY Administration Protocol Olanzapine 5 mg 08/13/20 13:48 08/21/20 19:10 Olanzapine 10 Mg Vial IM 5 mg DAILY PRN Administration Psychosis Olanzapine 10 mg 08/22/20 11:41 Olanzapine 10 Mg Vial IM BID PRN Psychosis Paliperidone 6 mg 08/17/20 09:00 08/23/20 08:53 Paliperidone Er 6 Mg Tab.Er.24 PO 6 mg DAILY OZZY Administration Quetiapine Fumarate 100 mg 08/13/20 13:34 08/22/20 08:18 Quetiapine Fumarate 100 Mg Tablet PO 100 mg RQ4H PRN Administration Anxiety/Restlessness Quetiapine Fumarate 100 mg 08/16/20 22:10 08/22/20 22:55 Quetiapine Fumarate 100 Mg Tablet PO 100 mg BEDTIME PRN Administration Insomnia Topiramate 50 mg 08/05/20 21:00 08/22/20 22:55 Topiramate 25 Mg Tablet PO 50 mg BEDTIME OZZY Administration Vitamin D 25 mcg 08/06/20 09:00 08/23/20 08:53 Cholecalciferol (Vitamin D3) 25 Mcg Tablet PO 25 mcg DAILY OZZY Administration Allergies Allergies Allergy/AdvReac Type Severity Reaction Status Date / Time lithium [[place]] Allergy Severe TOXICITY Verified 07/28/20 18:08 thiothixene Allergy Severe SWELLING Verified 08/05/20 07:28 barium sulfate Allergy Intermediate NAUSEA & Verified 08/05/20 07:28 [BARIUM SULFATE] VOMITING haloperidol Allergy Intermediate MUSCLE Verified 07/28/20 18:08 TENSION IN LEGS benztropine Allergy Unknown benztropine Verified 08/05/20 07:28 mesylate- unknown diphenhydramine Allergy Unknown urinary Verified 08/05/20 07:28 [From Benadryl] retention fluphenazine Allergy Unknown UNKNOWN Verified 08/05/20 07:28 gabapentin [From NEURONTIN] Allergy Unknown UNKNOWN Verified 07/28/20 18:08 prolixen Allergy Unknown Unknown Uncoded 07/28/20 16:56 Assessment & Plan Assessment & Plan (1) Schizoaffective disorder: Status: Acute Code(s): F25.9 - Schizoaffective disorder, unspecified (2) Cardiac arrhythmia: Status: Acute Code(s): I49.9 - Cardiac arrhythmia, unspecified Assessment and Plan: CT current treatment plan Greater than 50% of the session was spent on counseling and/or coordination of care Patient educated on: diagnosis and medication risk/benefits Informed Consent: does not understand Reason for contiued inpatient stay Substantial Risk for: harm to others, inability to function and rapid de compensation
[2020-08-23] MEDS: QUEtiapine Fumarate 100 MG TABLET PO ×2 (16:12→20:13)
[2020-08-23] MEDS: OLANZapine 10 MG VIAL IM (16:59)
[2020-08-23 19:10] VITALS: BP 136/65; PULSE 93; TEMP 36.6
[2020-08-23] MEDS: cloZAPine 25 MG TABLET 50 MG PO (19:15)
[2020-08-23 19:16] VITALS: BP 136/65; PULSE 93
[2020-08-23] MEDS: Atorvastatin Calcium 20 MG TABLET PO (19:16)
[2020-08-23] MEDS: Topiramate 25 MG TABLET 50 MG PO (19:16)
[2020-08-23] MEDS: cloZAPine 100 MG TABLET PO (19:17)
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
--- NOTE | 2020-08-24 | ECG_ITS ---
Test Reason : HX MT, ONPYSCH MEDS Blood Pressure : / mmHG Vent. Rate : 084 BPM Atrial Rate : 084 BPM P-R Int : 166 ms QRS Dur : 126 ms QT Int : 402 ms P-R-T Axes : 060 020 233 degrees QTc Int : 475 ms Normal sinus rhythm Non-specific intra-ventricular conduction block T wave abnormality, consider inferior ischemia T wave abnormality, consider anterolateral ischemia Abnormal ECG When compared with ECG of 17-JUN-2020 19:40, QRS duration has increased Referred By: Rocael Pacheco Electronically Signed By:CHADD WILLIS MD
[2020-08-24] MEDS: QUEtiapine Fumarate 50 MG TABLET 100 MG PO (05:03)
[2020-08-24] MEDS: Divalproex Sodium ER 500 MG TAB.ER.24H 1000 MG PO ×2 (09:36→10:31)
[2020-08-24] MEDS: Divalproex Sodium ER 250 MG TAB.ER.24H PO (09:36)
[2020-08-24] MEDS: Cholecalciferol (Vitamin D3) 25 MCG TABLET PO (09:36)
[2020-08-24 09:37] VITALS: BP 155/75; PULSE 88
[2020-08-24] MEDS: clonazePAM 1 MG TABLET PO ×3 (09:37→20:51)
[2020-08-24] MEDS: Docusate Sodium 100 MG CAPSULE PO ×2 (09:37→20:51)
[2020-08-24] MEDS: Aspirin 81 MG TAB.CHEW PO (09:37)
[2020-08-24] MEDS: Paliperidone ER 6 MG TAB.ER.24 PO (09:37)
[2020-08-24] MEDS: Metoprolol Succinate ER 25 MG TAB.ER.24H 37.5 MG PO ×2 (09:37→20:51)
[2020-08-24 10:03] VITALS: RESP 16; O2SAT 97
[2020-08-24] MEDS: Albuterol Sulfate 90 MCG 8 GM INHALER 2 PUFF INHALE (10:31)
[2020-08-24] MEDS: OLANZapine ODT 10 MG TAB.RAPDIS TRANSLINGU (11:39)
[2020-08-24] MEDS: QUEtiapine Fumarate 100 MG TABLET PO (14:08)
[2020-08-24 17:13] VITALS: BP 123/62; PULSE 98; TEMP 36.4
[2020-08-24 20:51] VITALS: BP 123/62; PULSE 98
[2020-08-24] MEDS: Atorvastatin Calcium 20 MG TABLET PO (20:52)
[2020-08-24] MEDS: cloZAPine 25 MG TABLET 50 MG PO (20:53)
[2020-08-24] MEDS: cloZAPine 100 MG TABLET PO (20:53)
[2020-08-24] MEDS: Topiramate 25 MG TABLET 50 MG PO (20:54)
--- NOTE | 2020-08-24 22:13 | HO.PSYCHPN ---
Subjective Subjective Reason For Visit: Psychosis Interim History: Pt quite easily agitated threatening required multiple medication interventions Mental Status Exam Mental Status Exam Narrative: irritable dysphoric difficult to engage in meaningful conversation; yelling at times multiple insults Patient Appearance: Disheveled and Bizarre Patient Orientation: Person Level of Consciousness: Restless Patient Behavior: Suspicious, Aggressive, Restless, Invasion - Personal Space, Combative, Uncooperative and Pacing Mood Description: Suspicious, Labile, Blunted and Angry Affect Description: Labile, Blunted, Angry and Apprehensive Patient Cognition Impaired: Yes Ability to Follow Directions: Poor Speech Pattern: Poor Articulation Memory Description: Immediate Impaired, Recent Impaired and Working Impaired Diagnostics Vital Signs (24Hr): Vital Signs - 24 hr 08/24/20 09:37 08/24/20 10:03 08/24/20 17:13 Temperature 97.5 F Pulse Rate 88 98 Respiratory Rate 16 Blood Pressure 155/75 H 123/62 Pulse Oximetry 97 08/24/20 20:51 Temperature Pulse Rate 98 Respiratory Rate Blood Pressure 123/62 Pulse Oximetry Body Mass Index 33.9 Labs Results: 08/26/20 08:11 08/26/20 08:11 Medications Medications Current Medications Generic Name Dose Route Start Last Admin Trade Name Freq PRN Reason Stop Dose Admin Albuterol Sulfate 2 puff 08/05/20 19:32 08/24/20 10:31 Albuterol Sulfate 90 Mcg 8 Gm Inhaler INHALE 2 puff DAILY PRN Administration asthma Aspirin 81 mg 08/06/20 09:00 08/24/20 09:37 Aspirin 81 Mg Tab.Chew PO 81 mg DAILY OZZY Administration Atorvastatin Calcium 20 mg 08/05/20 21:00 08/24/20 20:52 Atorvastatin Calcium 20 Mg Tablet PO 20 mg BEDTIME OZZY Administration Clonazepam 1 mg 08/22/20 12:00 08/24/20 20:51 Clonazepam 1 Mg Tablet PO 1 mg BID OZZY Administration Clozapine 100 mg 08/22/20 21:00 08/24/20 20:53 Clozapine 100 Mg Tablet PO 100 mg BEDTIME OZZY Administration Clozapine 50 mg 08/23/20 21:00 08/24/20 20:53 Clozapine 25 Mg Tablet PO 50 mg BEDTIME OZZY Administration Divalproex Sodium 1,000 mg 08/24/20 09:00 08/24/20 10:31 Divalproex Sodium Er 500 Mg Tab.Er.24h PO 500 mg DAILY OZZY Administration Divalproex Sodium 250 mg 08/24/20 09:00 08/24/20 09:36 Divalproex Sodium Er 250 Mg Tab.Er.24h PO 250 mg DAILY OZZY Administration Docusate Sodium 100 mg 08/05/20 21:00 08/24/20 20:51 Docusate Sodium 100 Mg Capsule PO 100 mg BID@0830,2100 OZZY Administration Metoprolol Succinate 37.5 mg 08/05/20 21:00 08/24/20 20:51 Metoprolol Succinate Er 25 Mg Tab.Er.24h PO 37.5 mg BID OZZY Administration Protocol Olanzapine 5 mg 08/13/20 13:48 08/21/20 19:10 Olanzapine 10 Mg Vial IM 5 mg DAILY PRN Administration Psychosis Olanzapine 10 mg 08/22/20 11:41 08/23/20 16:59 Olanzapine 10 Mg Vial IM 10 mg BID PRN Administration Psychosis Paliperidone 6 mg 08/17/20 09:00 08/24/20 09:37 Paliperidone Er 6 Mg Tab.Er.24 PO 6 mg DAILY OZZY Administration Quetiapine Fumarate 100 mg 08/13/20 13:34 08/24/20 14:08 Quetiapine Fumarate 100 Mg Tablet PO 100 mg RQ4H PRN Administration Anxiety/Restlessness Quetiapine Fumarate 100 mg 08/16/20 22:10 08/22/20 22:55 Quetiapine Fumarate 100 Mg Tablet PO 100 mg BEDTIME PRN Administration Insomnia Topiramate 50 mg 08/05/20 21:00 08/24/20 20:54 Topiramate 25 Mg Tablet PO 50 mg BEDTIME OZZY Administration Vitamin D 25 mcg 08/06/20 09:00 08/24/20 09:36 Cholecalciferol (Vitamin D3) 25 Mcg Tablet PO 25 mcg DAILY OZZY Administration Allergies Allergies Allergy/AdvReac Type Severity Reaction Status Date / Time lithium [[place]] Allergy Severe TOXICITY Verified 07/28/20 18:08 thiothixene Allergy Severe SWELLING Verified 08/05/20 07:28 barium sulfate Allergy Intermediate NAUSEA & Verified 08/05/20 07:28 [BARIUM SULFATE] VOMITING haloperidol Allergy Intermediate MUSCLE Verified 07/28/20 18:08 TENSION IN LEGS benztropine Allergy Unknown benztropine Verified 08/05/20 07:28 mesylate- unknown diphenhydramine Allergy Unknown urinary Verified 08/05/20 07:28 [From Benadryl] retention fluphenazine Allergy Unknown UNKNOWN Verified 08/05/20 07:28 gabapentin [From NEURONTIN] Allergy Unknown UNKNOWN Verified 07/28/20 18:08 prolixen Allergy Unknown Unknown Uncoded 07/28/20 16:56 Assessment & Plan Assessment & Plan (1) Schizoaffective disorder: Status: Acute Code(s): F25.9 - Schizoaffective disorder, unspecified (2) HOCM (hypertrophic obstructive cardiomyopathy): Status: Acute Code(s): I42.1 - Obstructive hypertrophic cardiomyopathy Assessment and Plan: is a 55-year-old male with schizoaffective disorder, HOCM, hypertension, GERD, questionable CHF admitted to for management of acute psychosis and aggression. Inc clozaril gradually ekg reviewed get med consult balance cardiac risk vs psych stability corey talbot clozapine Greater than 50% of the session was spent on counseling and/or coordination of care Informed Consent: does not understand Reason for contiued inpatient stay Substantial Risk for: harm to others and inability to function
[2020-08-25] MEDS: QUEtiapine Fumarate 100 MG TABLET PO ×4 (04:52→20:17)
[2020-08-25 05:45] VITALS: BP 128/70; PULSE 92; RESP 20
[2020-08-25] MEDS: Docusate Sodium 100 MG CAPSULE PO (08:01)
[2020-08-25] MEDS: clonazePAM 1 MG TABLET PO ×2 (08:01→20:17)
[2020-08-25] MEDS: Cholecalciferol (Vitamin D3) 25 MCG TABLET PO (08:01)
[2020-08-25 08:02] VITALS: BP 128/70; PULSE 92
[2020-08-25] MEDS: Divalproex Sodium ER 250 MG TAB.ER.24H PO (08:02)
[2020-08-25] MEDS: Aspirin 81 MG TAB.CHEW PO (08:02)
[2020-08-25] MEDS: Paliperidone ER 6 MG TAB.ER.24 PO (08:02)
[2020-08-25] MEDS: Metoprolol Succinate ER 25 MG TAB.ER.24H 37.5 MG PO ×2 (08:02→20:17)
[2020-08-25] MEDS: Divalproex Sodium ER 500 MG TAB.ER.24H 1000 MG PO (08:24)
[2020-08-25] MEDS: OLANZapine ODT 10 MG TAB.RAPDIS TRANSLINGU (13:22)
[2020-08-25] MEDS: Topiramate 25 MG TABLET 50 MG PO (20:16)
[2020-08-25 20:17] VITALS: BP 142/74; PULSE 95
[2020-08-25] MEDS: Atorvastatin Calcium 20 MG TABLET PO (20:17)
[2020-08-25] MEDS: cloZAPine 25 MG TABLET 50 MG PO (20:17)
[2020-08-25] MEDS: cloZAPine 100 MG TABLET PO (20:17)
[2020-08-25 20:24] VITALS: TEMP 36.6
[2020-08-26 04:45] VITALS: BP 132/78; PULSE 87; RESP 18; TEMP 36.2
[2020-08-26] MEDS: QUEtiapine Fumarate 100 MG TABLET PO ×3 (06:32→20:15)
[2020-08-26] MEDS: Docusate Sodium 100 MG CAPSULE PO (08:02)
[2020-08-26] MEDS: Paliperidone ER 6 MG TAB.ER.24 PO (08:02)
[2020-08-26] MEDS: Divalproex Sodium ER 500 MG TAB.ER.24H 1000 MG PO (08:02)
[2020-08-26] MEDS: Cholecalciferol (Vitamin D3) 25 MCG TABLET PO (08:02)
[2020-08-26] MEDS: Divalproex Sodium ER 250 MG TAB.ER.24H PO (08:02)
[2020-08-26] MEDS: Aspirin 81 MG TAB.CHEW PO (08:02)
[2020-08-26] MEDS: clonazePAM 1 MG TABLET PO ×2 (08:03→20:11)
[2020-08-26 08:27] LABS: MANUAL DIFF FLAG NO
[2020-08-26 08:33] LABS: Basophils Percent Auto 0.7 % (0-2); Eosinophils Absolute Auto 0.1 X10*3/uL (0.0-0.4); Eosinophils Percent Auto 1.8 % (0-4); Hematocrit 43.5 % (42-52); Hemoglobin 13.3 g/dl (14.0-18.0); Imm Gran Abs Auto 0.01 X10*3/uL (0.00-0.03); Imm Gran Pct Auto 0.2 % (0.0-0.4); Lymphocytes Absolute Auto 1.1 X10*3/uL (1.2-4.9); Lymphocytes Percent Auto 25.3 % (20-40); Mean Corpuscular HGB Conc 30.6 g/dl (31.0-36.0); Mean Corpuscular Hemoglobin 26.9 pg (27.0-33.0); Mean Corpuscular Volume 88.1 fL (80-98); Mean Platelet Volume 11.9 fL (9.4-12.4); Monocytes Absolute Auto 0.7 X10*3/uL (0.1-1.2); Monocytes Percent Auto 15.5 % (2-11); Neutrophils Absolute Auto 2.5 X10*3/uL (2.0-8.3); Neutrophils Percent Auto 56.5 % (45-73); Platelet Count 138 X10*3/uL (160-400); Red Blood Count 4.94 X10*6/uL (4.60-5.80); White Blood Count 4.4 X10*3/uL (4.8-10.8)
[2020-08-26 08:41] LABS: Estimated Average Glucose 128 mg/dL; Hemoglobin A1c % 6.1 %
[2020-08-26 08:56] LABS: Cholesterol 125 mg/dL; HDL Cholesterol 27 mg/dL; LDL Cholesterol Calculated 62 mg/dl; Triglycerides 182 mg/dL
[2020-08-26 09:01] LABS: Alanine Aminotransferase 31 U/L (0-40); Alkaline Phosphatase 57 U/L (39-117); Anion Gap 12 (12-20); Aspartate Amino Transferase 24 U/L (5-37); Bilirubin Total 0.2 mg/dL (0.0-1.0); Blood Urea Nitrogen 18 mg/dL (9-16); Calcium 8.6 mg/dL (8.4-10.2); Carbon Dioxide 23 mmol/L (22-29); Chloride 114 mmol/L (96-108); Creatinine Clr Calc Pharmacy 105.5; Estimated Glomerular Filt Rate > 60; Glucose Fasting 96 mg/dL (60-99); Potassium 4.3 mmol/l (3.3-5.1); Sodium 145 mmol/L (135-145); Total Protein 6.6 g/dL (6.5-8.0)
[2020-08-26 09:06] LABS: Valproate 49.2 mcg/mL (50.0-100.0)
[2020-08-26 09:18] LABS: TSH reflex Free T4 0.48 mIU/mL (0.32-4.0)
[2020-08-26 09:34] LABS: Folate 10.9 ng/mL (> or = 4.0); Vitamin B12 547 pg/mL (200-900)
[2020-08-26 11:11] VITALS: BP 132/78; PULSE 87
[2020-08-26] MEDS: Metoprolol Succinate ER 25 MG TAB.ER.24H 37.5 MG PO ×2 (11:11→20:11)
[2020-08-26] MEDS: OLANZapine ODT 10 MG TAB.RAPDIS TRANSLINGU ×3 (11:14→20:17)
--- NOTE | 2020-08-26 12:17 | P.CONIM_ITS ---
History of Present Illness Data of Consult Service Date: 08/26/20 Requesting physician: Rocael Pacheco Primary Care Provider: Regan Hogue MD [facility] Reason for consult: abnormal EKG, right hand swelling this is a 55-year-old male with history of schizoaffective disorder multiple recent, prolonged admissions to for management of disorganized aggressive behavior who was admitted for the same. Does not see a to be responding well to medical management. The hospitalists were asked to see him in consultation due to concern about underlying cardiovascular disease and increasing doses of antipsychotic medications the as well as concern for worsening EKG. patient is unable to participate in physical exam or answer questions appropriately due to psychosis. He is observed ambulating without issue and appeared to be in no acute distress. He is speaking in full sentences but giving nonsensical answers to questions. unable to assess for any cardiac symptoms or symptoms rega rding right hand. He frequently told me to get lost & take a hike Review of Systems Review of Systems: Yes Unobtainable due to mental condition [facility] Medical History (Updated 08/26/20 @ 12:22 by MIC Gold) Aggression Cardiac arrhythmia CHF (congestive heart failure) Coronary artery disease HOCM (hypertrophic obstructive cardiomyopathy) Hypertension Myocardial infarction Schizoaffective disorder Functional capacity: independent ambulation Family History Father Medical history unknown Mother Medical history unknown Sister Alive and well Surgical History History of intestinal surgery History of transurethral resection of prostate Social History Household Members: Unknown / Unable to assess Housing: Apartment Do you presently have visiting nurse or other home services: Yes Alcohol intake: unknown Smoking Status: Former smoker Second Hand Smoke Exposure: No Use of substances other than those prescribed or required for medical reasons: Unknown Substance Use Type: Unknown Currently Displaying Signs/Symptoms of Drug Intoxication Withdrawal: No Advance Directives: No Advance Directives Information Provided: No Do you have thoughts of harming others: None Do you have a plan to hurt others: No Plan Recently lost weight without trying: No Sexual orientation: Straight/Heterosexual Meds Allergies Allergy/AdvReac Type Severity Reaction Status Date / Time lithium [[place]] Allergy Severe TOXICITY Verified 07/28/20 18:08 thiothixene Allergy Severe SWELLING Verified 08/05/20 07:28 barium sulfate Allergy Intermediate NAUSEA & Verified 08/05/20 07:28 [BARIUM SULFATE] VOMITING haloperidol Allergy Intermediate MUSCLE Verified 07/28/20 18:08 TENSION IN LEGS benztropine Allergy Unknown benztropine Verified 08/05/20 07:28 mesylate- unknown diphenhydramine Allergy Unknown urinary Verified 08/05/20 07:28 [From Benadryl] retention fluphenazine Allergy Unknown UNKNOWN Verified 08/05/20 07:28 gabapentin [From NEURONTIN] Allergy Unknown UNKNOWN Verified 07/28/20 18:08 prolixen Allergy Unknown Unknown Uncoded 07/28/20 16:56 Home Medications Medication Instructions Recorded Confirmed Type cholecalciferol (vitamin D3) 25 mcg PO DAILY 07/07/20 08/05/20 History metoprolol succinate 37.5 mg PO BID 07/28/20 08/05/20 History albuterol sulfate 2 puff INHALATION DAILY PRN 08/05/20 08/05/20 History lorazepam 1 mg PO DAILY PRN 08/05/20 08/05/20 History quetiapine 100 mg PO BEDTIME 08/05/20 08/05/20 History quetiapine 100 mg PO DAILY PRN 08/05/20 08/05/20 History Physical Exam Vital Signs and Narrative: Vital Signs: Last Vital Signs Temp 97.2 F 08/26/20 04:45 Pulse 87 08/26/20 11:11 Resp 18 08/26/20 04:45 BP 132/78 08/26/20 11:11 Pulse Ox 97 08/24/20 10:03 Body Mass Index 33.9 55-year-old male awake alert and appears to be in no acute distress, pacing in the hallway normal respiratory effort, no respiratory distress observed. able to speak in full sentences right hand with shallow excoriations, some dry skin Results Labs CBC and Chem 7: 08/26/20 08:11 08/26/20 08:11 Labs: Laboratory Results - last 24 hr 08/26/20 08/26/20 08/26/20 08:11 08:11 08:11 MCV MCH MCHC RDW Plt Count MPV Immature Gran % (Auto) Neut % (Auto) Lymph % (Auto) [place] % (Auto) Eos % (Auto) Baso % (Auto) Lymph # (Auto) [place] # (Auto) Eos # (Auto) Baso # (Auto) Abs Immat Gran (auto) Absolute Neuts (auto) Absolute Nucleated RBC Nucleated RBC % (auto) Anion Gap 12 Estim Creat Clear Calc 105.5 Estimated GFR > 60 Fasting Glucose 96 Estimat Average Glucose 128 Hemoglobin A1c % 6.1 Calcium 8.6 Total Bilirubin 0.2 AST 24 ALT 31 Alkaline Phosphatase 57 Total Protein 6.6 Albumin 4.0 Triglycerides Cholesterol LDL Cholesterol, Calc HDL Cholesterol Vitamin B12 Folate TSH Valproic Acid 49.2 L 08/26/20 08/26/20 08/26/20 08:11 08:11 08:11 MCV 88.1 MCH 26.9 L MCHC 30.6 L RDW 15.0 Plt Count 138 L MPV 11.9 Immature Gran % (Auto) 0.2 Neut % (Auto) 56.5 Lymph % (Auto) 25.3 [place] % (Auto) 15.5 H Eos % (Auto) 1.8 Baso % (Auto) 0.7 Lymph # (Auto) 1.1 L [place] # (Auto) 0.7 Eos # (Auto) 0.1 Baso # (Auto) 0.0 Abs Immat Gran (auto) 0.01 Absolute Neuts (auto) 2.5 Absolute Nucleated RBC 0.000 Nucleated RBC % (auto) 0.0 Anion Gap Estim Creat Clear Calc Estimated GFR Fasting Glucose Estimat Average Glucose Hemoglobin A1c % Calcium Total Bilirubin AST ALT Alkaline Phosphatase Total Protein Albumin Triglycerides 182 Cholesterol 125 LDL Cholesterol, Calc 62 HDL Cholesterol 27 Vitamin B12 547 Folate 10.9 TSH 0.48 Valproic Acid Assessment and Plan (1) Schizoaffective disorder: Status: Acute (2) HOCM (hypertrophic obstructive cardiomyopathy): Status: Acute is a 55-year-old male with schizoaffective disorder, HOCM, hypertension, GERD, questionable CHF admitted to for management of acute psychosis and aggression. abnormal EKG h/o HOCM/ ?CHF EKG similar to previous although seems to be worsening T-wave inversions in V3 unable to assess for cardiac symptoms no recent cardiac followup due to underlying psychiatric issues if medical management of psychiatric issues are currently limited by underlying cardiac disease would recommend cardiology input Right hand only able to examine visually/uncooperative with exam no known trauma doesn't appear to be infected, pt afebrile, no leukocytosis would recommend keeping hand moisturized monitor for redness thank you for allowing us to participate in the care of this patient This case was discussed wt Dr. Puente
[2020-08-26] MEDS: Albuterol Sulfate 90 MCG 8 GM INHALER 2 PUFF INHALE (19:34)
[2020-08-26 20:11] VITALS: BP 129/66; PULSE 92
[2020-08-26] MEDS: Atorvastatin Calcium 20 MG TABLET PO (20:11)
[2020-08-26] MEDS: Topiramate 25 MG TABLET 50 MG PO (20:11)
[2020-08-26] MEDS: cloZAPine 25 MG TABLET 75 MG PO (20:11)
[2020-08-26] MEDS: cloZAPine 100 MG TABLET PO (20:11)
[2020-08-26 20:30] VITALS: TEMP 36.4
[2020-08-27 05:30] VITALS: BP 131/59; PULSE 94; RESP 18; TEMP 36.2; O2SAT 97
[2020-08-27 08:17] VITALS: BP 131/59; PULSE 94
[2020-08-27] MEDS: Metoprolol Succinate ER 25 MG TAB.ER.24H 37.5 MG PO ×2 (08:17→21:08)
[2020-08-27] MEDS: Docusate Sodium 100 MG CAPSULE PO (08:19)
[2020-08-27] MEDS: clonazePAM 1 MG TABLET PO (08:19)
[2020-08-27] MEDS: Paliperidone ER 6 MG TAB.ER.24 PO (08:19)
[2020-08-27] MEDS: Aspirin 81 MG TAB.CHEW PO (08:19)
[2020-08-27] MEDS: Cholecalciferol (Vitamin D3) 25 MCG TABLET PO (08:19)
[2020-08-27] MEDS: Divalproex Sodium ER 250 MG TAB.ER.24H PO (08:19)
[2020-08-27] MEDS: Divalproex Sodium ER 500 MG TAB.ER.24H 1000 MG PO (08:37)
[2020-08-27] MEDS: Albuterol Sulfate 90 MCG 8 GM INHALER 2 PUFF INHALE (15:18)
[2020-08-27 16:23] VITALS: BP 125/69; PULSE 94; TEMP 36.4
[2020-08-27] MEDS: OLANZapine ODT 10 MG TAB.RAPDIS TRANSLINGU (18:42)
[2020-08-27] MEDS: Topiramate 25 MG TABLET 50 MG PO (21:07)
[2020-08-27 21:08] VITALS: BP 125/69; PULSE 94
[2020-08-27] MEDS: cloZAPine 25 MG TABLET 75 MG PO (21:08)
[2020-08-27] MEDS: cloZAPine 100 MG TABLET PO (21:08)
[2020-08-27] MEDS: QUEtiapine Fumarate 100 MG TABLET PO (21:10)
--- NOTE | 2020-08-27 22:01 | P.PNPSI_ITS ---
Subjective Subjective Reason For Visit: Psychosis Subjective Notes: [place] Order Interim History: patient continues to be sarcastic with some increase range of affect some clanging some ongoing insults but somewhat more goal-directed at times less combative her less assaultive today remains on one-to-one Medication Compliance: Yes Side effects from medications: Yes Mental Status Exam Mental Status Exam Narrative: irritable dysphoric difficult to engage in meaningful conversation; yelling at times multiple insults Patient Appearance: Disheveled and Bizarre Patient Orientation: Person Level of Consciousness: Restless Patient Behavior: Suspicious, Aggressive, Restless, Invasion - Personal Space, Combative, Uncooperative and Pacing Mood Description: Suspicious, Labile, Blunted and Angry Affect Description: Labile, Blunted, Angry and Apprehensive Patient Cognition Impaired: Yes Ability to Follow Directions: Poor Speech Pattern: Poor Articulation Memory Description: Immediate Impaired, Recent Impaired and Working Impaired Delusions: Paranoid Ideation, Grandiose and Bizarre Thought Process: Illogical and Word Salad Thought Content: positive for Flight of Ideas, positive for Loose Associations, positive for Neologisms, negative for Suicidal Ideation and negative for Homicidal Ideation Judgement: Poor Diagnostics Vital Signs (24Hr): Vital Signs - 24 hr 08/27/20 05:30 08/27/20 08:17 08/27/20 16:23 Temperature 97.1 F 97.5 F Pulse Rate 94 94 94 Respiratory Rate 18 Blood Pressure 131/59 L 131/59 L 125/69 Pulse Oximetry 97 08/27/20 21:08 Temperature Pulse Rate 94 Respiratory Rate Blood Pressure 125/69 Pulse Oximetry Body Mass Index 33.9 Labs Results: 08/26/20 08:11 08/26/20 08:11 Labs: Laboratory Results - last 48 hr 08/26/20 08/26/20 08/26/20 08:11 08:11 08:11 WBC RBC Hgb Hct MCV MCH MCHC RDW Plt Count MPV Immature Gran % (Auto) Neut % (Auto) Lymph % (Auto) [place] % (Auto) Eos % (Auto) Baso % (Auto) Lymph # (Auto) [place] # (Auto) Eos # (Auto) Baso # (Auto) Abs Immat Gran (auto) Absolute Neuts (auto) Absolute Nucleated RBC Nucleated RBC % (auto) Sodium 145 Potassium 4.3 Chloride 114 H Carbon Dioxide 23 Anion Gap 12 BUN 18 H Creatinine 0.93 Estim Creat Clear Calc 105.5 Estimated GFR > 60 Fasting Glucose 96 Estimat Average Glucose 128 Hemoglobin A1c % 6.1 Calcium 8.6 Total Bilirubin 0.2 AST 24 ALT 31 Alkaline Phosphatase 57 Total Protein 6.6 Albumin 4.0 Triglycerides Cholesterol LDL Cholesterol, Calc HDL Cholesterol Vitamin B12 Folate TSH Valproic Acid 49.2 L 08/26/20 08/26/20 08/26/20 08:11 08:11 08:11 WBC 4.4 L RBC 4.94 Hgb 13.3 L Hct 43.5 MCV 88.1 MCH 26.9 L MCHC 30.6 L RDW 15.0 Plt Count 138 L MPV 11.9 Immature Gran % (Auto) 0.2 Neut % (Auto) 56.5 Lymph % (Auto) 25.3 [place] % (Auto) 15.5 H Eos % (Auto) 1.8 Baso % (Auto) 0.7 Lymph # (Auto) 1.1 L [place] # (Auto) 0.7 Eos # (Auto) 0.1 Baso # (Auto) 0.0 Abs Immat Gran (auto) 0.01 Absolute Neuts (auto) 2.5 Absolute Nucleated RBC 0.000 Nucleated RBC % (auto) 0.0 Sodium Potassium Chloride Carbon Dioxide Anion Gap BUN Creatinine Estim Creat Clear Calc Estimated GFR Fasting Glucose Estimat Average Glucose Hemoglobin A1c % Calcium Total Bilirubin AST ALT Alkaline Phosphatase Total Protein Albumin Triglycerides 182 Cholesterol 125 LDL Cholesterol, Calc 62 HDL Cholesterol 27 Vitamin B12 547 Folate 10.9 TSH 0.48 Valproic Acid Medications Medications Current Medications Generic Name Dose Route Start Last Admin Trade Name Freq PRN Reason Stop Dose Admin Acetaminophen 650 mg 08/26/20 10:22 Acetaminophen 325 Mg Tablet PO Q6H PRN Pain, Mild (Pain Scale 1-3) Albuterol Sulfate 2 puff 08/05/20 19:32 08/27/20 15:18 Albuterol Sulfate 90 Mcg 8 Gm Inhaler INHALE 2 puff DAILY PRN Administration asthma Aspirin 81 mg 08/06/20 09:00 08/27/20 08:19 Aspirin 81 Mg Tab.Chew PO 81 mg DAILY OZZY Administration Atorvastatin Calcium 20 mg 08/05/20 21:00 08/26/20 20:11 Atorvastatin Calcium 20 Mg Tablet PO 20 mg BEDTIME OZZY Administration Clozapine 200 mg 08/28/20 21:00 Clozapine 100 Mg Tablet PO BEDTIME OZZY Divalproex Sodium 1,000 mg 08/24/20 09:00 08/27/20 08:37 Divalproex Sodium Er 500 Mg Tab.Er.24h PO 1,000 mg DAILY OZZY Administration Divalproex Sodium 250 mg 08/24/20 09:00 08/27/20 08:19 Divalproex Sodium Er 250 Mg Tab.Er.24h PO 250 mg DAILY OZZY Administration Docusate Sodium 100 mg 08/05/20 21:00 08/27/20 21:22 Docusate Sodium 100 Mg Capsule PO Not Given BID@0830,2100 OZZY Metoprolol Succinate 37.5 mg 08/05/20 21:00 08/27/20 21:08 Metoprolol Succinate Er 25 Mg Tab.Er.24h PO 37.5 mg BID OZZY Administration Protocol Olanzapine 10 mg 08/22/20 11:41 08/23/20 16:59 Olanzapine 10 Mg Vial IM 10 mg BID PRN Administration Psychosis Olanzapine 10 mg 08/25/20 13:06 08/27/20 18:42 Olanzapine Odt 10 Mg Tab.Rapdis TRANSLINGU 10 mg BID PRN Administration Psychosis Paliperidone 6 mg 08/17/20 09:00 08/27/20 08:19 Paliperidone Er 6 Mg Tab.Er.24 PO 6 mg DAILY OZZY Administration Quetiapine Fumarate 100 mg 08/13/20 13:34 08/26/20 14:49 Quetiapine Fumarate 100 Mg Tablet PO 100 mg RQ4H PRN Administration Anxiety/Restlessness Quetiapine Fumarate 100 mg 08/16/20 22:10 08/27/20 21:10 Quetiapine Fumarate 100 Mg Tablet PO 100 mg BEDTIME PRN Administration Insomnia Topiramate 50 mg 08/05/20 21:00 08/27/20 21:07 Topiramate 25 Mg Tablet PO 50 mg BEDTIME OZZY Administration Vitamin D 25 mcg 08/06/20 09:00 08/27/20 08:19 Cholecalciferol (Vitamin D3) 25 Mcg Tablet PO 25 mcg DAILY OZZY Administration Allergies Allergies Allergy/AdvReac Type Severity Reaction Status Date / Time lithium [[place]] Allergy Severe TOXICITY Verified 07/28/20 18:08 thiothixene Allergy Severe SWELLING Verified 08/05/20 07:28 barium sulfate Allergy Intermediate NAUSEA & Verified 08/05/20 07:28 [BARIUM SULFATE] VOMITING haloperidol Allergy Intermediate MUSCLE Verified 07/28/20 18:08 TENSION IN LEGS benztropine Allergy Unknown benztropine Verified 08/05/20 07:28 mesylate- unknown diphenhydramine Allergy Unknown urinary Verified 08/05/20 07:28 [From Benadryl] retention fluphenazine Allergy Unknown UNKNOWN Verified 08/05/20 07:28 gabapentin [From NEURONTIN] Allergy Unknown UNKNOWN Verified 07/28/20 18:08 prolixen Allergy Unknown Unknown Uncoded 07/28/20 16:56 Assessment & Plan Assessment & Plan (1) Schizoaffective disorder: Status: Acute Code(s): F25.9 - Schizoaffective disorder, unspecified (2) Aggression: Status: Acute Code(s): R46.89 - Other symptoms and signs involving appearance and behavior (3) Coronary artery disease: Status: Acute Code(s): I25.10 - Atherosclerotic heart disease of [place] coronary artery without angina pectoris Assessment and Plan: increase clozapine gradually patient does appear to be responding somewhat to Depakote disorganized psychosis less aggressive continue Invega monitor EKG med consult reviewed and appreciated Greater than 50% of the session was spent on counseling and/or coordination of care Informed Consent: does not understand Reason for contiued inpatient stay Substantial Risk for: harm to self, harm to others, inability to function and rapid decompensation
[2020-08-27] MEDS: Atorvastatin Calcium 20 MG TABLET PO (23:19)
[2020-08-28] MEDS: Docusate Sodium 100 MG CAPSULE PO ×2 (08:22→21:51)
[2020-08-28] MEDS: Divalproex Sodium ER 500 MG TAB.ER.24H 1000 MG PO (08:22)
[2020-08-28] MEDS: Divalproex Sodium ER 250 MG TAB.ER.24H PO (08:22)
[2020-08-28 08:23] VITALS: BP 136/82; PULSE 88
[2020-08-28] MEDS: Aspirin 81 MG TAB.CHEW PO (08:23)
[2020-08-28] MEDS: Paliperidone ER 6 MG TAB.ER.24 PO (08:23)
[2020-08-28] MEDS: Metoprolol Succinate ER 25 MG TAB.ER.24H 37.5 MG PO ×2 (08:23→21:51)
[2020-08-28] MEDS: Cholecalciferol (Vitamin D3) 25 MCG TABLET PO (08:23)
[2020-08-28 08:32] VITALS: BP 136/82; PULSE 88; RESP 20; TEMP 36.1; O2SAT 96
[2020-08-28] MEDS: OLANZapine ODT 10 MG TAB.RAPDIS TRANSLINGU ×2 (11:20→14:41)
[2020-08-28] MEDS: QUEtiapine Fumarate 100 MG TABLET PO (14:41)
[2020-08-28 18:00] VITALS: BP 116/64; PULSE 96; TEMP 36.4
[2020-08-28 21:51] VITALS: BP 116/64; PULSE 96
[2020-08-28] MEDS: Atorvastatin Calcium 20 MG TABLET PO (21:53)
[2020-08-28] MEDS: Topiramate 25 MG TABLET 50 MG PO (21:53)
[2020-08-28] MEDS: cloZAPine 100 MG TABLET 200 MG PO (21:53)
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
[2020-08-29] MEDS: Divalproex Sodium ER 250 MG TAB.ER.24H PO (09:13)
[2020-08-29] MEDS: Divalproex Sodium ER 500 MG TAB.ER.24H 1000 MG PO (09:14)
[2020-08-29 09:15] VITALS: BP 128/83; PULSE 88
[2020-08-29] MEDS: Docusate Sodium 100 MG CAPSULE PO ×2 (09:15→20:44)
[2020-08-29] MEDS: Metoprolol Succinate ER 25 MG TAB.ER.24H 37.5 MG PO ×2 (09:15→20:44)
[2020-08-29] MEDS: Aspirin 81 MG TAB.CHEW PO (09:15)
[2020-08-29] MEDS: Paliperidone ER 6 MG TAB.ER.24 PO (09:15)
[2020-08-29] MEDS: Cholecalciferol (Vitamin D3) 25 MCG TABLET PO (09:15)
[2020-08-29 09:35] VITALS: BP 128/83; PULSE 88; RESP 20; TEMP 36; O2SAT 94
[2020-08-29] MEDS: Albuterol Sulfate 90 MCG 8 GM INHALER 2 PUFF INHALE (10:26)
[2020-08-29] MEDS: OLANZapine ODT 10 MG TAB.RAPDIS TRANSLINGU (15:00)
[2020-08-29 18:00] VITALS: BP 166/78; PULSE 81; TEMP 36.1
[2020-08-29] MEDS: Topiramate 25 MG TABLET 50 MG PO (20:43)
[2020-08-29] MEDS: cloZAPine 100 MG TABLET 200 MG PO (20:43)
[2020-08-29 20:44] VITALS: BP 166/78; PULSE 81
[2020-08-29] MEDS: Atorvastatin Calcium 20 MG TABLET PO (20:44)
--- NOTE | 2020-08-30 01:38 | P.PNPSI_ITS ---
Subjective Subjective Date of Service: 08/28/20 Reason For Visit: Psychosis Interim History: Vitals reviewed: wnl Labs reviewed Pt seen, chart reviewed and case discussed with nursing nurse staff community health approaches patient who says who are you? Get lost. Get lost. Pt refuses to engage and interview terminated. Staff reports pt remains manic, intrusive and verbally assaultive. Medication Compliance: No Mental Status Exam Mental Status Exam Patient Appearance: Disheveled and Unkempt Patient Orientation: Person Level of Consciousness: Awake Patient Behavior: Talkative, Hyperactive, Suspicious, Belligerent, Swearing, Uncooperative and Pacing Mood Description: Hostile Affect Description: Hostile Ability to Follow Directions: Poor Speech Pattern: Rambling, Excessive, Loud and Includes Profanity Thought Process: Incoherent Thought Content: positive for Disorganized Abnormal Motor Activity Signs and Symptoms: Hyperactivity Judgement and Insight: impaired Diagnostics Vital Signs (24Hr): Vital Signs - 24 hr 08/29/20 09:15 08/29/20 09:35 08/29/20 18:00 Temperature 96.8 F 97 F Pulse Rate 88 88 81 Respiratory Rate 20 Blood Pressure 128/83 128/83 166/78 H Pulse Oximetry 94 08/29/20 20:44 Temperature Pulse Rate 81 Respiratory Rate Blood Pressure 166/78 H Pulse Oximetry Body Mass Index 33.9 Labs Results: 08/26/20 08:11 08/26/20 08:11 Medications Medications Current Medications Generic Name Dose Route Start Last Admin Trade Name Freq PRN Reason Stop Dose Admin Acetaminophen 650 mg 08/26/20 10:22 Acetaminophen 325 Mg Tablet PO Q6H PRN Pain, Mild (Pain Scale 1-3) Albuterol Sulfate 2 puff 08/05/20 19:32 08/29/20 10:26 Albuterol Sulfate 90 Mcg 8 Gm Inhaler INHALE 2 puff DAILY PRN Administration asthma Aspirin 81 mg 08/06/20 09:00 08/29/20 09:15 Aspirin 81 Mg Tab.Chew PO 81 mg DAILY OZZY Administration Atorvastatin Calcium 20 mg 08/05/20 21:00 08/29/20 20:44 Atorvastatin Calcium 20 Mg Tablet PO 20 mg BEDTIME OZZY Administration Clozapine 200 mg 08/28/20 21:00 08/29/20 20:43 Clozapine 100 Mg Tablet PO 200 mg BEDTIME OZZY Administration Divalproex Sodium 1,000 mg 08/24/20 09:00 08/29/20 09:14 Divalproex Sodium Er 500 Mg Tab.Er.24h PO 1,000 mg DAILY OZZY Administration Divalproex Sodium 250 mg 08/24/20 09:00 08/29/20 09:13 Divalproex Sodium Er 250 Mg Tab.Er.24h PO 250 mg DAILY OZZY Administration Docusate Sodium 100 mg 08/05/20 21:00 08/29/20 20:44 Docusate Sodium 100 Mg Capsule PO 100 mg BID@0830,2100 OZZY Administration Metoprolol Succinate 37.5 mg 08/05/20 21:00 08/29/20 20:44 Metoprolol Succinate Er 25 Mg Tab.Er.24h PO 37.5 mg BID OZZY Administration Protocol Olanzapine 10 mg 08/22/20 11:41 08/23/20 16:59 Olanzapine 10 Mg Vial IM 10 mg BID PRN Administration Psychosis Olanzapine 10 mg 08/25/20 13:06 08/29/20 15:00 Olanzapine Odt 10 Mg Tab.Rapdis TRANSLINGU 10 mg BID PRN Administration Psychosis Paliperidone 6 mg 08/17/20 09:00 08/29/20 09:15 Paliperidone Er 6 Mg Tab.Er.24 PO 6 mg DAILY OZZY Administration Quetiapine Fumarate 100 mg 08/13/20 13:34 08/28/20 14:41 Quetiapine Fumarate 100 Mg Tablet PO 100 mg RQ4H PRN Administration Anxiety/Restlessness Quetiapine Fumarate 100 mg 08/16/20 22:10 08/27/20 21:10 Quetiapine Fumarate 100 Mg Tablet PO 100 mg BEDTIME PRN Administration Insomnia Topiramate 50 mg 08/05/20 21:00 08/29/20 20:43 Topiramate 25 Mg Tablet PO 50 mg BEDTIME OZZY Administration Vitamin D 25 mcg 08/06/20 09:00 08/29/20 09:15 Cholecalciferol (Vitamin D3) 25 Mcg Tablet PO 25 mcg DAILY OZZY Administration Allergies Allergies Allergy/AdvReac Type Severity Reaction Status Date / Time lithium [[place]] Allergy Severe TOXICITY Verified 07/28/20 18:08 thiothixene Allergy Severe SWELLING Verified 08/05/20 07:28 barium sulfate Allergy Intermediate NAUSEA & Verified 08/05/20 07:28 [BARIUM SULFATE] VOMITING haloperidol Allergy Intermediate MUSCLE Verified 07/28/20 18:08 TENSION IN LEGS benztropine Allergy Unknown benztropine Verified 08/05/20 07:28 mesylate- unknown diphenhydramine Allergy Unknown urinary Verified 08/05/20 07:28 [From Benadryl] retention fluphenazine Allergy Unknown UNKNOWN Verified 08/05/20 07:28 gabapentin [From NEURONTIN] Allergy Unknown UNKNOWN Verified 07/28/20 18:08 prolixen Allergy Unknown Unknown Uncoded 07/28/20 16:56 Assessment & Plan Pt manic, disorganized in speech and behavior and without insight. Pt refuses medications (though he did take one prn) and is physically intrusive and verbally assaultive Pt to remain on 1:1 No changes go primary team tx plan
[2020-08-30] MEDS: OLANZapine ODT 10 MG TAB.RAPDIS TRANSLINGU ×2 (02:43→09:58)
[2020-08-30] MEDS: QUEtiapine Fumarate 100 MG TABLET PO ×2 (02:43→20:28)
[2020-08-30] MEDS: Docusate Sodium 100 MG CAPSULE PO ×2 (08:16→20:29)
[2020-08-30] MEDS: Aspirin 81 MG TAB.CHEW PO (08:16)
[2020-08-30] MEDS: Paliperidone ER 6 MG TAB.ER.24 PO (08:16)
[2020-08-30] MEDS: Cholecalciferol (Vitamin D3) 25 MCG TABLET PO (08:16)
[2020-08-30 08:18] VITALS: BP 157/98; PULSE 98
[2020-08-30] MEDS: Metoprolol Succinate ER 25 MG TAB.ER.24H 37.5 MG PO ×2 (08:18→20:29)
[2020-08-30] MEDS: Divalproex Sodium ER 500 MG TAB.ER.24H 1000 MG PO (08:18)
[2020-08-30] MEDS: Divalproex Sodium ER 250 MG TAB.ER.24H PO (08:18)
[2020-08-30 08:30] VITALS: BP 157/98; PULSE 98; RESP 20; TEMP 36.3; O2SAT 96
[2020-08-30 18:00] VITALS: BP 121/78; PULSE 96; TEMP 36.4
[2020-08-30] MEDS: Topiramate 25 MG TABLET 50 MG PO (20:28)
[2020-08-30] MEDS: cloZAPine 100 MG TABLET 200 MG PO (20:28)
[2020-08-30 20:29] VITALS: BP 121/78; PULSE 96
[2020-08-30] MEDS: Atorvastatin Calcium 20 MG TABLET PO (20:29)
--- NOTE | 2020-08-30 22:02 | P.PNPSI_ITS ---
Subjective Subjective Date of Service: 08/30/20 Reason For Visit: Psychosis Subjective Notes: [facility] Order Interim History: Interim summary note date of admission 08/10/2020 -08/30/2020 patient on a Haines order and section [address] [address] Psychiatry Admission Note (In) Signed Patient: Navid CarvalhoMR#: [id number] : 1965Acct:[id number] Age/Sex: 55 / MADM Date: 08/10/20 Loc: [id number] of Service:08/10/[address]: Rocael Pacheco MD cc: ~ HPI Chief Complaint: Psychosis Sources of Information: patient interviewed, chart reviewed and crisis/core team assessment reviewed Additional Sources of Information: patient known to this pattern chart writer from previous admission HPI Narrative: the patient is a 55-year-old male with a long history of schizoaffective disorder bipolar type. Who was recently discharged on July 14 from the psychiatric unit at [facility] on a combination Depakote and clozapine 300 mg. his treatment over the past few years has been complicated by and unclear cardiac event a few years ago with acute congestive heart failure and the patient tends to have a long QT. He has not been psychiatrically stable with chronic thought disorganization irritability which improved somewhat with the addition of Depakote. Case has been reviewed previously with his outpatient psychiatrist Dr. Rodríguez. The patient was referred to respite he quickly left was in a [facility] respite senior living and then walked to his house. He did miss 1 or 2 doses of clozapine refusing them prior to going to the emergency room and has not been on clozapine now for number of days. He has intermittently threatening physically aggressive and irritable which previously had been uncharacteristic for him he had been living in the community in his own apartment with support. With the pandemic the amount of out reach support he has been able to get has been markedly decreased Past Psychiatric History: patient has had multiple psychiatric hospitalizations particularly over the past 1-2 years. He has not been able to restate belies on clozapine and his clozapine dose has been capped relatively moderate because of his cardiac conduction issues and question of CHF in the past. He had responded reportedly well to Latuda in the past he was less agitated on Depakote Medical Evaluation Reviewed: Yes [facility] Medical History Cardiac arrhythmia CHF (congestive heart failure) Coronary artery disease Hypertension Myocardial infarction Schizoaffective disorder Surgical History History of intestinal surgery History of transurethral resection of prostate Family History: patient was adopted Social History: patient not working not is on disability was living in a supportive apartment but has not been able to maintain this setting in an extended period of time Substance History: none noted Trauma History: not evaluated interval history since admission the patient was id admitted in an agitated combative psychotic and disorganized state. He had been off clozapine for number of days and because the dosing of clozapine seem to be limited by his cardiac conduction and he had not stabilized on a combination of clozapine Depakote quetiapine and Topamax a decision was made to try and transition the patient if possible to a long-acting injectable. It seem recently in the community because the out reach team was not regularly able to go to was apartment he was D stabilizing more frequently M and was much more irritable and did not stay in respite or group settings. The patient was given clonazepam for severe agitation decision was made on 08/12 to restart clozapine in case the fairly quickly withdrawal off clozapine might have contributed to his level of agitation combative behavior. Patient was repeatedly physically aggressive. Olanzapine 5 mg IM b.i.d. p.r.n. was ordered which was increased to 10 b.i.d. p.r.n.. zydis also helpful. Depakote was restarted and increased to 1250 mg Clozapine is in process a being increased to 225 mg Invega currently at 6 mg pending a repeat EKG EKG shows normal sinus rhythm QTC 475 T-wave abnormalities inferior and anterior laterally not markedly different than previous EKGs At present the patient is somewhat less combative still disorganized in thought intermittently suspicious with tangential speech at times flight of ideas and clanging. He can be unpredictably aggressive physically and has requi red one-to-one. The patient would benefit from a longer-term referral for hospitalization to stabilize his mood long-term his psychosis and to transition him to a different living situation as he is not able to manage a supportive apartment given his level of psychosis agitation and difficulty with supports in the community Medication Compliance: Intermittent Side effects from medications: No Attending Groups: No Diagnostics Vital Signs (24Hr): Vital Signs - 24 hr 08/30/20 08:18 08/30/20 08:30 08/30/20 20:29 Temperature 97.3 F Pulse Rate 98 98 96 Respiratory Rate 20 Blood Pressure 157/98 H 157/98 H 121/78 Pulse Oximetry 96 Body Mass Index 33.9 Labs Results: 08/26/20 08:11 08/26/20 08:11 Medications Medications Current Medications Generic Name Dose Route Start Last Admin Trade Name Freq PRN Reason Stop Dose Admin Acetaminophen 650 mg 08/26/20 10:22 Acetaminophen 325 Mg Tablet PO Q6H PRN Pain, Mild (Pain Scale 1-3) Albuterol Sulfate 2 puff 08/05/20 19:32 08/29/20 10:26 Albuterol Sulfate 90 Mcg 8 Gm Inhaler INHALE 2 puff DAILY PRN Administration asthma Aspirin 81 mg 08/06/20 09:00 08/30/20 08:16 Aspirin 81 Mg Tab.Chew PO 81 mg DAILY OZZY Administration Atorvastatin Calcium 20 mg 08/05/20 21:00 08/30/20 20:29 Atorvastatin Calcium 20 Mg Tablet PO 20 mg BEDTIME OZZY Administration Clozapine 225 mg 08/31/20 21:00 Clozapine 25 Mg Tablet PO BEDTIME OZZY Divalproex Sodium 1,000 mg 08/24/20 09:00 08/30/20 08:18 Divalproex Sodium Er 500 Mg Tab.Er.24h PO 1,000 mg DAILY OZZY Administration Divalproex Sodium 250 mg 08/24/20 09:00 08/30/20 08:18 Divalproex Sodium Er 250 Mg Tab.Er.24h PO 250 mg DAILY OZZY Administration Docusate Sodium 100 mg 08/05/20 21:00 08/30/20 20:29 Docusate Sodium 100 Mg Capsule PO 100 mg BID@0830,2100 OZZY Administration Metoprolol Succinate 37.5 mg 08/05/20 21:00 08/30/20 20:29 Metoprolol Succinate Er 25 Mg Tab.Er.24h PO 37.5 mg BID OZZY Administration Protocol Olanzapine 10 mg 08/22/20 11:41 08/23/20 16:59 Olanzapine 10 Mg Vial IM 10 mg BID PRN Administration Psychosis Olanzapine 10 mg 08/25/20 13:06 08/30/20 09:58 Olanzapine Odt 10 Mg Tab.Rapdis TRANSLINGU 10 mg BID PRN Administration Psychosis Paliperidone 6 mg 08/17/20 09:00 08/30/20 08:16 Paliperidone Er 6 Mg Tab.Er.24 PO 6 mg DAILY OZZY Administration Quetiapine Fumarate 100 mg 08/13/20 13:34 08/28/20 14:41 Quetiapine Fumarate 100 Mg Tablet PO 100 mg RQ4H PRN Administration Anxiety/Restlessness Quetiapine Fumarate 100 mg 08/16/20 22:10 08/30/20 20:28 Quetiapine Fumarate 100 Mg Tablet PO 100 mg BEDTIME PRN Administration Insomnia Topiramate 50 mg 08/05/20 21:00 08/30/20 20:28 Topiramate 25 Mg Tablet PO 50 mg BEDTIME OZZY Administration Vitamin D 25 mcg 08/06/20 09:00 08/30/20 08:16 Cholecalciferol (Vitamin D3) 25 Mcg Tablet PO 25 mcg DAILY OZZY Administration Allergies Allergies Allergy/AdvReac Type Severity Reaction Status Date / Time lithium [[place]] Allergy Severe TOXICITY Verified 07/28/20 18:08 thiothixene Allergy Severe SWELLING Verified 08/05/20 07:28 barium sulfate Allergy Intermediate NAUSEA & Verified 08/05/20 07:28 [BARIUM SULFATE] VOMITING haloperidol Allergy Intermediate MUSCLE Verified 07/28/20 18:08 TENSION IN LEGS benztropine Allergy Unknown benztropine Verified 08/05/20 07:28 mesylate- unknown diphenhydramine Allergy Unknown urinary Verified 08/05/20 07:28 [From Benadryl] retention fluphenazine Allergy Unknown UNKNOWN Verified 08/05/20 07:28 gabapentin [From NEURONTIN] Allergy Unknown UNKNOWN Verified 07/28/20 18:08 prolixen Allergy Unknown Unknown Uncoded 07/28/20 16:56 Assessment & Plan Assessment & Plan (1) Schizoaffective disorder: Status: Acute Code(s): F25.9 - Schizoaffective disorder, unspecified (2) Aggression: Status: Acute Code(s): R46.89 - Other symptoms and signs involving appearance and behavior (3) Coronary artery disease: Status: Acute Code(s): I25.10 - Atherosclerotic heart disease of [place] coronary artery without angina pectoris (4) Hypertension: Status: Acute Code(s): I10 - Essential (primary) hypertension Assessment and Plan: continue aspirin and beta-thee continue to monitor EKG for hypertension history of ASHD and history of increase QTC patient currently being treated for psychotic agitation with a combination of Invega and clozapine Zyprexa as needed. Depakote has been helpful for decreasing level of aggression check Depakote level EKG ammonia level CBC referral to [facility] funded longer-term unit Greater than 50% of the session was spent on counseling and/or coordination of care Informed Consent: does not understand Reason for contiued inpatient stay Substantial Risk for: harm to others, inability to function, rapid decompensation and med/psych decompensation
[2020-08-30] MEDS: Albuterol Sulfate 90 MCG 8 GM INHALER 2 PUFF INHALE (23:31)
[2020-08-31] MEDS: OLANZapine ODT 10 MG TAB.RAPDIS TRANSLINGU (04:49)
[2020-08-31] MEDS: QUEtiapine Fumarate 100 MG TABLET PO (04:50)
[2020-08-31 05:30] VITALS: BP 136/75; PULSE 88; RESP 20; TEMP 36.3; O2SAT 97
[2020-08-31 08:08] VITALS: BP 136/75; PULSE 88
[2020-08-31] MEDS: Metoprolol Succinate ER 25 MG TAB.ER.24H 37.5 MG PO ×2 (08:08→19:59)
[2020-08-31] MEDS: Aspirin 81 MG TAB.CHEW PO (08:08)
[2020-08-31] MEDS: Docusate Sodium 100 MG CAPSULE PO ×2 (08:09→19:58)
[2020-08-31] MEDS: Cholecalciferol (Vitamin D3) 25 MCG TABLET PO (08:09)
[2020-08-31] MEDS: Divalproex Sodium ER 500 MG TAB.ER.24H 1000 MG PO (08:09)
[2020-08-31] MEDS: Divalproex Sodium ER 250 MG TAB.ER.24H PO (08:09)
[2020-08-31] MEDS: Paliperidone ER 6 MG TAB.ER.24 PO (08:10)
[2020-08-31] MEDS: Albuterol Sulfate 90 MCG 8 GM INHALER 2 PUFF INHALE (13:59)
[2020-08-31 18:00] VITALS: BP 146/71; PULSE 98; TEMP 36.7
[2020-08-31] MEDS: Topiramate 25 MG TABLET 50 MG PO (19:58)
[2020-08-31 19:59] VITALS: BP 146/71; PULSE 98
[2020-08-31] MEDS: cloZAPine 25 MG TABLET PO (19:59)
[2020-08-31] MEDS: cloZAPine 100 MG TABLET 200 MG PO (19:59)
[2020-08-31] MEDS: Atorvastatin Calcium 20 MG TABLET PO (20:00)
--- NOTE | 2020-08-31 23:08 | HO.PSYCHPN ---
Subjective Subjective Date of Service: 09/02/20 Reason For Visit: Psychosis Interim History: patient irritable argumentative sarcastic but less physically aggressive Medication Compliance: Yes Mental Status Exam Mental Status Exam Patient Appearance: Disheveled and Unkempt Patient Orientation: Person Level of Consciousness: Awake Patient Behavior: Talkative, Hyperactive, Suspicious, Belligerent, Swearing, Uncooperative and Pacing Mood Description: Hostile Affect Description: Hostile Ability to Follow Directions: Poor Speech Pattern: Rambling, Excessive, Loud and Includes Profanity Thought Process: Incoherent Thought Content: positive for Disorganized Abnormal Motor Activity Signs and Symptoms: Hyperactivity Judgement and Insight: impaired Diagnostics Vital Signs (24Hr): Vital Signs - 24 hr 08/31/20 05:30 08/31/20 08:08 08/31/20 18:00 Temperature 97.4 F 98.1 F Pulse Rate 88 88 98 Respiratory Rate 20 Blood Pressure 136/75 136/75 146/71 H Pulse Oximetry 97 08/31/20 19:59 Temperature Pulse Rate 98 Respiratory Rate Blood Pressure 146/71 H Pulse Oximetry Body Mass Index 33.9 Labs Results: 08/26/20 08:11 08/26/20 08:11 Medications Medications Current Medications Generic Name Dose Route Start Last Admin Trade Name Freq PRN Reason Stop Dose Admin Acetaminophen 650 mg 08/26/20 10:22 Acetaminophen 325 Mg Tablet PO Q6H PRN Pain, Mild (Pain Scale 1-3) Albuterol Sulfate 2 puff 08/05/20 19:32 08/31/20 13:59 Albuterol Sulfate 90 Mcg 8 Gm Inhaler INHALE 2 puff DAILY PRN Administration asthma Aspirin 81 mg 08/06/20 09:00 08/31/20 08:08 Aspirin 81 Mg Tab.Chew PO 81 mg DAILY OZZY Administration Atorvastatin Calcium 20 mg 08/05/20 21:00 08/31/20 20:00 Atorvastatin Calcium 20 Mg Tablet PO 20 mg BEDTIME OZZY Administration Clozapine 25 mg 08/31/20 21:00 08/31/20 19:59 Clozapine 25 Mg Tablet PO 25 mg BEDTIME OZZY Administration Clozapine 200 mg 08/31/20 21:00 08/31/20 19:59 Clozapine 100 Mg Tablet PO 200 mg BEDTIME OZZY Administration Divalproex Sodium 1,000 mg 08/24/20 09:00 08/31/20 08:09 Divalproex Sodium Er 500 Mg Tab.Er.24h PO 1,000 mg DAILY OZZY Administration Divalproex Sodium 250 mg 08/24/20 09:00 08/31/20 08:09 Divalproex Sodium Er 250 Mg Tab.Er.24h PO 250 mg DAILY OZZY Administration Docusate Sodium 100 mg 08/05/20 21:00 08/31/20 19:58 Docusate Sodium 100 Mg Capsule PO 100 mg BID@0830,2100 OZZY Administration Metoprolol Succinate 37.5 mg 08/05/20 21:00 08/31/20 19:59 Metoprolol Succinate Er 25 Mg Tab.Er.24h PO 37.5 mg BID OZZY Administration Protocol Olanzapine 10 mg 08/22/20 11:41 08/23/20 16:59 Olanzapine 10 Mg Vial IM 10 mg BID PRN Administration Psychosis Olanzapine 10 mg 08/25/20 13:06 08/31/20 04:49 Olanzapine Odt 10 Mg Tab.Rapdis TRANSLINGU 10 mg BID PRN Administration Psychosis Paliperidone 6 mg 08/17/20 09:00 08/31/20 08:10 Paliperidone Er 6 Mg Tab.Er.24 PO 6 mg DAILY OZZY Administration Quetiapine Fumarate 100 mg 08/13/20 13:34 08/31/20 04:50 Quetiapine Fumarate 100 Mg Tablet PO 100 mg RQ4H PRN Administration Anxiety/Restlessness Quetiapine Fumarate 100 mg 08/16/20 22:10 08/30/20 20:28 Quetiapine Fumarate 100 Mg Tablet PO 100 mg BEDTIME PRN Administration Insomnia Topiramate 50 mg 08/05/20 21:00 08/31/20 19:58 Topiramate 25 Mg Tablet PO 50 mg BEDTIME OZZY Administration Vitamin D 25 mcg 08/06/20 09:00 08/31/20 08:09 Cholecalciferol (Vitamin D3) 25 Mcg Tablet PO 25 mcg DAILY OZZY Administration Allergies Allergies Allergy/AdvReac Type Severity Reaction Status Date / Time lithium [[place]] Allergy Severe TOXICITY Verified 07/28/20 18:08 thiothixene Allergy Severe SWELLING Verified 08/05/20 07:28 barium sulfate Allergy Intermediate NAUSEA & Verified 08/05/20 07:28 [BARIUM SULFATE] VOMITING haloperidol Allergy Intermediate MUSCLE Verified 07/28/20 18:08 TENSION IN LEGS benztropine Allergy Unknown benztropine Verified 08/05/20 07:28 mesylate- unknown diphenhydramine Allergy Unknown urinary Verified 08/05/20 07:28 [From Benadryl] retention fluphenazine Allergy Unknown UNKNOWN Verified 08/05/20 07:28 gabapentin [From NEURONTIN] Allergy Unknown UNKNOWN Verified 07/28/20 18:08 prolixen Allergy Unknown Unknown Uncoded 07/28/20 16:56 Assessment & Plan Greater than 50% of the session was spent on counseling and/or coordination of care Reason for contiued inpatient stay Substantial Risk for: inability to function and rapid decompensation
[2020-09-01 04:25] VITALS: BP 129/65; PULSE 88; RESP 22; TEMP 36.1
[2020-09-01] MEDS: QUEtiapine Fumarate 100 MG TABLET PO ×2 (05:20→21:09)
[2020-09-01] MEDS: OLANZapine ODT 10 MG TAB.RAPDIS TRANSLINGU ×3 (05:20→22:54)
[2020-09-01] MEDS: Divalproex Sodium ER 250 MG TAB.ER.24H PO (07:55)
[2020-09-01] MEDS: Aspirin 81 MG TAB.CHEW PO (07:56)
[2020-09-01] MEDS: Divalproex Sodium ER 500 MG TAB.ER.24H 1000 MG PO (07:56)
[2020-09-01] MEDS: Paliperidone ER 6 MG TAB.ER.24 PO (07:56)
[2020-09-01 07:57] VITALS: BP 129/65; PULSE 88
[2020-09-01] MEDS: Metoprolol Succinate ER 25 MG TAB.ER.24H 37.5 MG PO ×2 (07:57→21:07)
[2020-09-01] MEDS: Cholecalciferol (Vitamin D3) 25 MCG TABLET PO (07:57)
[2020-09-01] MEDS: Docusate Sodium 100 MG CAPSULE PO ×2 (07:57→21:07)
[2020-09-01] MEDS: Albuterol Sulfate 90 MCG 8 GM INHALER 2 PUFF INHALE (11:00)
[2020-09-01 16:32] VITALS: BP 137/61; PULSE 95; TEMP 36.2
[2020-09-01 21:07] VITALS: BP 137/61; PULSE 95
[2020-09-01] MEDS: Atorvastatin Calcium 20 MG TABLET PO (21:07)
[2020-09-01] MEDS: Topiramate 25 MG TABLET 50 MG PO (21:07)
[2020-09-01] MEDS: cloZAPine 25 MG TABLET 50 MG PO (21:09)
[2020-09-01] MEDS: cloZAPine 100 MG TABLET 200 MG PO (21:09)
--- NOTE | 2020-09-02 00:18 | HO.PSYCHPN ---
Subjective Subjective Date of Service: 09/01/20 Reason For Visit: Psychosis Mental Status Exam Mental Status Exam Patient Appearance: Disheveled and Unkempt Patient Orientation: Person Level of Consciousness: Awake Patient Behavior: Talkative, Hyperactive, Suspicious, Belligerent, Swearing, Invasion - Personal Space, Uncooperative and Pacing Mood Description: Hostile Affect Description: Hostile Ability to Follow Directions: Poor Speech Pattern: Rambling, Excessive, Loud and Includes Profanity Delusions: Paranoid Ideation, Grandiose and Present Thought Process: Incoherent Thought Content: positive for Disorganized, negative for Suicidal Ideation and negative for Homicidal Ideation Abnormal Motor Activity Signs and Symptoms: Hyperactivity Judgement: Poor Judgement and Insight: impaired Diagnostics Vital Signs (24Hr): Vital Signs - 24 hr 09/01/20 04:25 09/01/20 07:57 09/01/20 16:32 Temperature 96.9 F 97.2 F Pulse Rate 88 88 95 Respiratory Rate 22 H Blood Pressure 129/65 129/65 137/61 09/01/20 21:07 Temperature Pulse Rate 95 Respiratory Rate Blood Pressure 137/61 Body Mass Index 33.9 Labs Results: 08/26/20 08:11 08/26/20 08:11 Medications Medications Current Medications Generic Name Dose Route Start Last Admin Trade Name Freq PRN Reason Stop Dose Admin Acetaminophen 650 mg 08/26/20 10:22 Acetaminophen 325 Mg Tablet PO Q6H PRN Pain, Mild (Pain Scale 1-3) Albuterol Sulfate 2 puff 08/05/20 19:32 09/01/20 11:00 Albuterol Sulfate 90 Mcg 8 Gm Inhaler INHALE 2 puff DAILY PRN Administration asthma Aspirin 81 mg 08/06/20 09:00 09/01/20 07:56 Aspirin 81 Mg Tab.Chew PO 81 mg DAILY OZZY Administration Atorvastatin Calcium 20 mg 08/05/20 21:00 09/01/20 21:07 Atorvastatin Calcium 20 Mg Tablet PO 20 mg BEDTIME OZZY Administration Clozapine 200 mg 08/31/20 21:00 09/01/20 21:09 Clozapine 100 Mg Tablet PO 200 mg BEDTIME OZZY Administration Clozapine 50 mg 09/01/20 21:00 09/01/20 21:09 Clozapine 25 Mg Tablet PO 50 mg BEDTIME OZZY Administration Divalproex Sodium 1,000 mg 08/24/20 09:00 09/01/20 07:56 Divalproex Sodium Er 500 Mg Tab.Er.24h PO 1,000 mg DAILY OZZY Administration Divalproex Sodium 250 mg 08/24/20 09:00 09/01/20 07:55 Divalproex Sodium Er 250 Mg Tab.Er.24h PO 250 mg DAILY OZZY Administration Docusate Sodium 100 mg 08/05/20 21:00 09/01/20 21:07 Docusate Sodium 100 Mg Capsule PO 100 mg BID@0830,2100 OZZY Administration Metoprolol Succinate 37.5 mg 08/05/20 21:00 09/01/20 21:07 Metoprolol Succinate Er 25 Mg Tab.Er.24h PO 37.5 mg BID OZZY Administration Protocol Olanzapine 10 mg 08/22/20 11:41 08/23/20 16:59 Olanzapine 10 Mg Vial IM 10 mg BID PRN Administration Psychosis Olanzapine 10 mg 08/25/20 13:06 09/01/20 22:54 Olanzapine Odt 10 Mg Tab.Rapdis TRANSLINGU 10 mg BID PRN Administration Psychosis Paliperidone 6 mg 08/17/20 09:00 09/01/20 07:56 Paliperidone Er 6 Mg Tab.Er.24 PO 6 mg DAILY OZZY Administration Quetiapine Fumarate 100 mg 08/13/20 13:34 09/01/20 21:09 Quetiapine Fumarate 100 Mg Tablet PO 100 mg RQ4H PRN Administration Anxiety/Restlessness Quetiapine Fumarate 100 mg 08/16/20 22:10 08/30/20 20:28 Quetiapine Fumarate 100 Mg Tablet PO 100 mg BEDTIME PRN Administration Insomnia Topiramate 50 mg 08/05/20 21:00 09/01/20 21:07 Topiramate 25 Mg Tablet PO 50 mg BEDTIME OZZY Administration Vitamin D 25 mcg 08/06/20 09:00 09/01/20 07:57 Cholecalciferol (Vitamin D3) 25 Mcg Tablet PO 25 mcg DAILY OZZY Administration Allergies Allergies Allergy/AdvReac Type Severity Reaction Status Date / Time lithium [[place]] Allergy Severe TOXICITY Verified 07/28/20 18:08 thiothixene Allergy Severe SWELLING Verified 08/05/20 07:28 barium sulfate Allergy Intermediate NAUSEA & Verified 08/05/20 07:28 [BARIUM SULFATE] VOMITING haloperidol Allergy Intermediate MUSCLE Verified 07/28/20 18:08 TENSION IN LEGS benztropine Allergy Unknown benztropine Verified 08/05/20 07:28 mesylate- unknown diphenhydramine Allergy Unknown urinary Verified 08/05/20 07:28 [From Benadryl] retention fluphenazine Allergy Unknown UNKNOWN Verified 08/05/20 07:28 gabapentin [From NEURONTIN] Allergy Unknown UNKNOWN Verified 07/28/20 18:08 prolixen Allergy Unknown Unknown Uncoded 07/28/20 16:56 Assessment & Plan Assessment & Plan (1) Schizoaffective disorder: Status: Acute Code(s): F25.9 - Schizoaffective disorder, unspecified Assessment and Plan: CONT CLOZAPINE INC TOLERATED SOME DEC AGGRESSION (2) Coronary artery disease: Status: Acute Code(s): I25.10 - Atherosclerotic heart disease of [place] coronary artery without angina pectoris (3) Aggression: Status: Acute Code(s): R46.89 - Other symptoms and signs involving appearance and behavior Greater than 50% of the session was spent on counseling and/or coordination of care
[2020-09-02 06:35] VITALS: BP 134/74; PULSE 101; RESP 18; TEMP 36.2; O2SAT 97
[2020-09-02] MEDS: Docusate Sodium 100 MG CAPSULE PO (08:42)
[2020-09-02 08:43] VITALS: BP 136/74; PULSE 101
[2020-09-02] MEDS: Aspirin 81 MG TAB.CHEW PO (08:43)
[2020-09-02] MEDS: Metoprolol Succinate ER 25 MG TAB.ER.24H 37.5 MG PO ×2 (08:43→21:20)
[2020-09-02] MEDS: Divalproex Sodium ER 250 MG TAB.ER.24H PO (08:43)
[2020-09-02] MEDS: Cholecalciferol (Vitamin D3) 25 MCG TABLET PO (08:43)
[2020-09-02] MEDS: Paliperidone ER 6 MG TAB.ER.24 PO (08:43)
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
[2020-09-02 21:19] VITALS: TEMP 36.1
[2020-09-02] MEDS: Atorvastatin Calcium 20 MG TABLET PO (21:19)
[2020-09-02] MEDS: QUEtiapine Fumarate 100 MG TABLET PO (21:19)
[2020-09-02] MEDS: OLANZapine ODT 10 MG TAB.RAPDIS TRANSLINGU (21:19)
[2020-09-02] MEDS: Topiramate 25 MG TABLET 50 MG PO (21:19)
[2020-09-02 21:20] VITALS: BP 119/72; PULSE 107
[2020-09-02] MEDS: cloZAPine 100 MG TABLET 200 MG PO (21:20)
[2020-09-02] MEDS: cloZAPine 25 MG TABLET 50 MG PO (21:20)
[2020-09-03 09:02] VITALS: BP 130/59; PULSE 106
[2020-09-03] MEDS: Metoprolol Succinate ER 25 MG TAB.ER.24H 37.5 MG PO ×2 (09:02→21:22)
[2020-09-03] MEDS: Docusate Sodium 100 MG CAPSULE PO ×2 (09:02→21:30)
[2020-09-03] MEDS: Cholecalciferol (Vitamin D3) 25 MCG TABLET PO (09:08)
[2020-09-03] MEDS: Aspirin 81 MG TAB.CHEW PO (09:08)
[2020-09-03] MEDS: Paliperidone ER 6 MG TAB.ER.24 PO (09:08)
[2020-09-03] MEDS: Divalproex Sodium ER 250 MG TAB.ER.24H PO (09:08)
[2020-09-03] MEDS: Divalproex Sodium ER 250 MG TAB.ER.24H 1000 MG PO (13:35)
--- NOTE | 2020-09-03 15:53 | P.PNPSI_ITS ---
Subjective Subjective Date of Service: 09/03/20 Reason For Visit: Psychosis Subjective Notes: Legal Status (7, 8 and 8b) Interim History: Navid has been a little more re-directable. He had been refusing the depakote due to the size of the pills. He was willing to take 5 x 250mg tablets. Medication Compliance: Intermittent Side effects from medications: No Attending Groups: No Review of Systems Acute medical concerns: No Medical Review of Systems: unchanged Mental Status Exam Mental Status Exam Patient Appearance: Disheveled and Unkempt Patient Orientation: Person Level of Consciousness: Awake Patient Behavior: Talkative, Hyperactive, Suspicious, Belligerent, Swearing, Invasion - Personal Space, Uncooperative and Pacing Mood Description: Hostile Affect Description: Hostile Ability to Follow Directions: Poor Speech Pattern: Rambling, Excessive, Loud and Includes Profanity Delusions: Paranoid Ideation, Grandiose and Present Thought Process: Incoherent Thought Content: positive for Disorganized, negative for Suicidal Ideation and negative for Homicidal Ideation Abnormal Motor Activity Signs and Symptoms: Hyperactivity Judgement: Poor Judgement and Insight: impaired Diagnostics Vital Signs (24Hr): Vital Signs - 24 hr 09/02/20 21:19 09/02/20 21:20 09/03/20 09:02 Temperature 96.9 F Pulse Rate 107 H 106 H Blood Pressure 119/72 130/59 L Body Mass Index 33.9 Labs Results: 08/26/20 08:11 08/26/20 08:11 Medications Medications Current Medications Generic Name Dose Route Start Last Admin Trade Name Freq PRN Reason Stop Dose Admin Acetaminophen 650 mg 08/26/20 10:22 Acetaminophen 325 Mg Tablet PO Q6H PRN Pain, Mild (Pain Scale 1-3) Albuterol Sulfate 2 puff 08/05/20 19:32 09/01/20 11:00 Albuterol Sulfate 90 Mcg 8 Gm Inhaler INHALE 2 puff DAILY PRN Administration asthma Aspirin 81 mg 08/06/20 09:00 09/03/20 09:08 Aspirin 81 Mg Tab.Chew PO 81 mg DAILY OZZY Administration Atorvastatin Calcium 20 mg 08/05/20 21:00 09/02/20 21:19 Atorvastatin Calcium 20 Mg Tablet PO 20 mg BEDTIME OZZY Administration Clozapine 200 mg 08/31/20 21:00 09/02/20 21:20 Clozapine 100 Mg Tablet PO 200 mg BEDTIME OZYZ Administration Clozapine 50 mg 09/01/20 21:00 09/02/20 21:20 Clozapine 25 Mg Tablet PO 50 mg BEDTIME OZZY Administration Divalproex Sodium 250 mg 09/04/20 09:00 Divalproex Sodium Er 250 Mg Tab.Er.24h PO DAILY OZZY Divalproex Sodium 1,000 mg 09/03/20 12:30 09/03/20 13:35 Divalproex Sodium Er 250 Mg Tab.Er.24h PO 1,000 mg DAILY OZZY Administration Docusate Sodium 100 mg 08/05/20 21:00 09/03/20 09:02 Docusate Sodium 100 Mg Capsule PO 100 mg BID@0830,2100 OZZY Administration Metoprolol Succinate 37.5 mg 08/05/20 21:00 09/03/20 09:02 Metoprolol Succinate Er 25 Mg Tab.Er.24h PO 37.5 mg BID OZZY Administration Protocol Olanzapine 10 mg 08/22/20 11:41 08/23/20 16:59 Olanzapine 10 Mg Vial IM 10 mg BID PRN Administration Psychosis Olanzapine 10 mg 08/25/20 13:06 09/02/20 21:19 Olanzapine Odt 10 Mg Tab.Rapdis TRANSLINGU 10 mg BID PRN Administration Psychosis Paliperidone 6 mg 08/17/20 09:00 09/03/20 09:08 Paliperidone Er 6 Mg Tab.Er.24 PO 6 mg DAILY OZZY Administration Quetiapine Fumarate 100 mg 08/13/20 13:34 09/01/20 21:09 Quetiapine Fumarate 100 Mg Tablet PO 100 mg RQ4H PRN Administration Anxiety/Restlessness Quetiapine Fumarate 100 mg 08/16/20 22:10 09/02/20 21:19 Quetiapine Fumarate 100 Mg Tablet PO 100 mg BEDTIME PRN Administration Insomnia Topiramate 50 mg 08/05/20 21:00 09/02/20 21:19 Topiramate 25 Mg Tablet PO 50 mg BEDTIME OZZY Administration Vitamin D 25 mcg 08/06/20 09:00 09/03/20 09:08 Cholecalciferol (Vitamin D3) 25 Mcg Tablet PO 25 mcg DAILY OZZY Administration Allergies Allergies Allergy/AdvReac Type Severity Reaction Status Date / Time lithium [[place]] Allergy Severe TOXICITY Verified 07/28/20 18:08 thiothixene Allergy Severe SWELLING Verified 08/05/20 07:28 barium sulfate Allergy Intermediate NAUSEA & Verified 08/05/20 07:28 [BARIUM SULFATE] VOMITING haloperidol Allergy Intermediate MUSCLE Verified 07/28/20 18:08 TENSION IN LEGS benztropine Allergy Unknown benztropine Verified 08/05/20 07:28 mesylate- unknown diphenhydramine Allergy Unknown urinary Verified 08/05/20 07:28 [From Benadryl] retention fluphenazine Allergy Unknown UNKNOWN Verified 08/05/20 07:28 gabapentin [From NEURONTIN] Allergy Unknown UNKNOWN Verified 07/28/20 18:08 prolixen Allergy Unknown Unknown Uncoded 07/28/20 16:56 Assessment & Plan Assessment & Plan (1) Schizoaffective disorder: Status: Acute Code(s): F25.9 - Schizoaffective disorder, unspecified Assessment and Plan: CT current treatment plan Greater than 50% of the session was spent on counseling and/or coordination of care Patient educated on: diagnosis and medication risk/benefits Informed Consent: does not understand Reason for contiued inpatient stay Substantial Risk for: harm to others, inability to function and rapid decompensa tion
[2020-09-03] MEDS: OLANZapine ODT 10 MG TAB.RAPDIS TRANSLINGU (17:28)
[2020-09-03] MEDS: cloZAPine 100 MG TABLET 200 MG PO (21:21)
[2020-09-03] MEDS: cloZAPine 25 MG TABLET 50 MG PO (21:21)
[2020-09-03 21:22] VITALS: BP 118/64; PULSE 101
[2020-09-03] MEDS: Topiramate 25 MG TABLET 50 MG PO (21:22)
[2020-09-03] MEDS: Atorvastatin Calcium 20 MG TABLET PO (21:30)
[2020-09-03 22:30] VITALS: BP 121/77; PULSE 104; TEMP 36.4
[2020-09-04 05:00] VITALS: BP 123/59; PULSE 92; RESP 20; TEMP 36.5; O2SAT 96
[2020-09-04] MEDS: OLANZapine ODT 10 MG TAB.RAPDIS TRANSLINGU ×2 (05:19→13:42)
[2020-09-04] MEDS: QUEtiapine Fumarate 100 MG TABLET PO ×2 (05:19→23:16)
[2020-09-04] MEDS: OLANZapine 10 MG VIAL IM ×2 (08:08→19:52)
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
[2020-09-04] MEDS: Divalproex Sodium ER 250 MG TAB.ER.24H PO (09:02)
[2020-09-04] MEDS: Divalproex Sodium ER 250 MG TAB.ER.24H 1000 MG PO (09:02)
[2020-09-04] MEDS: Aspirin 81 MG TAB.CHEW PO (09:02)
[2020-09-04] MEDS: Metoprolol Succinate ER 25 MG TAB.ER.24H 37.5 MG PO ×2 (09:03→23:17)
[2020-09-04] MEDS: Docusate Sodium 100 MG CAPSULE PO (09:03)
[2020-09-04] MEDS: Paliperidone ER 6 MG TAB.ER.24 PO (09:03)
[2020-09-04] MEDS: Cholecalciferol (Vitamin D3) 25 MCG TABLET PO (09:03)
[2020-09-04] MEDS: Albuterol Sulfate 90 MCG 8 GM INHALER 2 PUFF INHALE (12:58)
[2020-09-04 21:32] LABS: Glucose Urine UA NEG (NEG); Leukocyte Esterase Urine NEG (NEG); Nitrite Urine NEG (NEG); Specific Gravity - Urine <= 1.005 (1.005-1.025); Urine Blood NEG (NEG); Urine Ketones NEG (NEG); Urine Protein NEG (NEG-TRACE)
[2020-09-04 21:33] LABS: Appearance Urine CLEAR; Color Urine YELLOW
[2020-09-04 23:15] VITALS: TEMP 36.6
[2020-09-04] MEDS: cloZAPine 100 MG TABLET 200 MG PO (23:16)
[2020-09-04] MEDS: Topiramate 25 MG TABLET 50 MG PO (23:16)
[2020-09-04] MEDS: Atorvastatin Calcium 20 MG TABLET PO (23:16)
[2020-09-04] MEDS: cloZAPine 25 MG TABLET 50 MG PO (23:16)
[2020-09-04 23:17] VITALS: BP 130/72; PULSE 93
[2020-09-05 06:20] VITALS: BP 111/76; PULSE 95; RESP 1; TEMP 36.2; O2SAT 96
[2020-09-05] MEDS: Divalproex Sodium ER 250 MG TAB.ER.24H PO (09:00)
[2020-09-05] MEDS: Divalproex Sodium ER 250 MG TAB.ER.24H 1000 MG PO (09:00)
[2020-09-05] MEDS: Docusate Sodium 100 MG CAPSULE PO ×2 (09:00→23:57)
[2020-09-05] MEDS: Cholecalciferol (Vitamin D3) 25 MCG TABLET PO (09:01)
[2020-09-05] MEDS: Aspirin 81 MG TAB.CHEW PO (09:01)
[2020-09-05] MEDS: Metoprolol Succinate ER 25 MG TAB.ER.24H 37.5 MG PO ×2 (09:01→23:59)
[2020-09-05] MEDS: Paliperidone ER 6 MG TAB.ER.24 PO (09:01)
[2020-09-05] MEDS: OLANZapine ODT 10 MG TAB.RAPDIS TRANSLINGU ×2 (09:56→18:43)
[2020-09-05] MEDS: Albuterol Sulfate 90 MCG 8 GM INHALER 2 PUFF INHALE (10:40)
[2020-09-05] MEDS: OLANZapine 10 MG VIAL IM (12:20)
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
[2020-09-05 23:55] VITALS: BP 133/81; PULSE 109; RESP 20; TEMP 36.1; O2SAT 96
[2020-09-05] MEDS: cloZAPine 25 MG TABLET 50 MG PO (23:58)
[2020-09-05] MEDS: cloZAPine 100 MG TABLET 200 MG PO (23:58)
[2020-09-05 23:59] VITALS: BP 133/81; PULSE 109
[2020-09-05] MEDS: Atorvastatin Calcium 20 MG TABLET PO (23:59)
[2020-09-05] MEDS: Topiramate 25 MG TABLET 50 MG PO (23:59)
[2020-09-06] MEDS: QUEtiapine Fumarate 100 MG TABLET PO ×2 (00:08→10:24)
[2020-09-06 10:00] VITALS: BP 118/69; PULSE 106; TEMP 36.3
[2020-09-06] MEDS: Aspirin 81 MG TAB.CHEW PO (10:19)
[2020-09-06 10:20] VITALS: BP 118/69; PULSE 106
[2020-09-06] MEDS: Metoprolol Succinate ER 25 MG TAB.ER.24H 37.5 MG PO (10:20)
[2020-09-06] MEDS: Cholecalciferol (Vitamin D3) 25 MCG TABLET PO (10:24)
[2020-09-06] MEDS: Divalproex Sodium ER 250 MG TAB.ER.24H 1000 MG PO (10:24)
[2020-09-06] MEDS: Docusate Sodium 100 MG CAPSULE PO (10:24)
[2020-09-06] MEDS: Paliperidone ER 6 MG TAB.ER.24 PO (10:24)
[2020-09-06] MEDS: Divalproex Sodium ER 250 MG TAB.ER.24H PO (10:25)
[2020-09-06] MEDS: Albuterol Sulfate 90 MCG 8 GM INHALER 2 PUFF INHALE (15:29)
[2020-09-06 18:00] VITALS: BP 120/73; PULSE 104; TEMP 36.6
[2020-09-06 20:51] VITALS: BP 120/73; PULSE 104
[2020-09-06] MEDS: clonazePAM 0.5 MG TABLET PO (20:52)
[2020-09-06] MEDS: Topiramate 25 MG TABLET 50 MG PO (20:52)
[2020-09-06] MEDS: Atorvastatin Calcium 20 MG TABLET PO (20:54)
[2020-09-06] MEDS: cloZAPine 100 MG TABLET 200 MG PO (20:54)
[2020-09-06] MEDS: cloZAPine 25 MG TABLET 50 MG PO (20:54)
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
[2020-09-07 06:00] VITALS: BP 114/67; PULSE 114; TEMP 36
[2020-09-07] MEDS: Aspirin 81 MG TAB.CHEW PO (08:31)
[2020-09-07] MEDS: Paliperidone ER 3 MG TAB.ER.24 PO (08:32)
[2020-09-07] MEDS: Cholecalciferol (Vitamin D3) 25 MCG TABLET PO (08:34)
[2020-09-07] MEDS: Docusate Sodium 100 MG CAPSULE PO ×2 (08:34→20:13)
[2020-09-07] MEDS: clonazePAM 0.5 MG TABLET PO ×2 (08:34→20:13)
[2020-09-07] MEDS: Paliperidone ER 6 MG TAB.ER.24 PO (08:34)
[2020-09-07 08:43] VITALS: BP 114/67; PULSE 114
[2020-09-07] MEDS: Metoprolol Succinate ER 25 MG TAB.ER.24H 37.5 MG PO ×2 (08:43→20:15)
[2020-09-07] MEDS: OLANZapine ODT 10 MG TAB.RAPDIS TRANSLINGU (09:37)
[2020-09-07 10:27] LABS: Valproate 41.6 mcg/mL (50.0-100.0)
[2020-09-07] MEDS: Divalproex Sodium ER 250 MG TAB.ER.24H 1500 MG PO (14:39)
[2020-09-07 18:00] VITALS: BP 147/85; PULSE 104; TEMP 36.4
[2020-09-07] MEDS: Atorvastatin Calcium 20 MG TABLET PO (20:13)
[2020-09-07] MEDS: cloZAPine 25 MG TABLET 50 MG PO (20:14)
[2020-09-07 20:15] VITALS: BP 147/85; PULSE 104
[2020-09-07] MEDS: cloZAPine 100 MG TABLET 200 MG PO (20:15)
[2020-09-07] MEDS: Topiramate 25 MG TABLET 50 MG PO (20:15)
--- NOTE | 2020-09-07 22:33 | HO.PSYCHPN ---
Subjective Subjective Date of Service: 09/07/20 Reason For Visit: Psychosis Interim History: patient labile irritable agitated remains hostile with diagrams of an irrelevant speech Medication Compliance: Intermittent Mental Status Exam Mental Status Exam Patient Appearance: Disheveled and Unkempt Patient Orientation: Person Level of Consciousness: Awake Patient Behavior: Talkative, Hyperactive, Suspicious, Belligerent, Swearing, Invasion - Personal Space, Uncooperative and Pacing Mood Description: Hostile Affect Description: Hostile Ability to Follow Directions: Poor Speech Pattern: Rambling, Excessive, Loud and Includes Profanity Delusions: Paranoid Ideation, Grandiose and Present Thought Process: Incoherent Thought Content: positive for Disorganized, negative for Suicidal Ideation and negative for Homicidal Ideation Abnormal Motor Activity Signs and Symptoms: Hyperactivity Judgement: Poor Judgement and Insight: impaired Diagnostics Vital Signs (24Hr): Vital Signs - 24 hr 09/07/20 06:00 09/07/20 08:43 09/07/20 18:00 Temperature 96.8 F 97.5 F Pulse Rate 114 H 114 H 104 H Blood Pressure 114/67 114/67 147/85 H 09/07/20 20:15 Temperature Pulse Rate 104 H Blood Pressure 147/85 H Body Mass Index 33.9 Labs Results: 08/26/20 08:11 08/26/20 08:11 Labs: Laboratory Results - last 48 hr 09/07/20 09:48 Valproic Acid 41.6 L Medications Medications Current Medications Generic Name Dose Route Start Last Admin Trade Name Freq PRN Reason Stop Dose Admin Acetaminophen 650 mg 08/26/20 10:22 Acetaminophen 325 Mg Tablet PO Q6H PRN Pain, Mild (Pain Scale 1-3) Albuterol Sulfate 2 puff 08/05/20 19:32 09/06/20 15:29 Albuterol Sulfate 90 Mcg 8 Gm Inhaler INHALE 2 puff DAILY PRN Administration asthma Aspirin 81 mg 08/06/20 09:00 09/07/20 08:31 Aspirin 81 Mg Tab.Chew PO 81 mg DAILY OZZY Administration Atorvastatin Calcium 20 mg 08/05/20 21:00 09/07/20 20:13 Atorvastatin Calcium 20 Mg Tablet PO 20 mg BEDTIME OZZY Administration Clonazepam 0.5 mg 09/06/20 21:00 09/07/20 20:13 Clonazepam 0.5 Mg Tablet PO 0.5 mg BID OZZY Administration Clonazepam 1 mg 09/07/20 14:27 Clonazepam 1 Mg Tablet PO BID PRN anxiety/restlessness Clozapine 200 mg 09/06/20 21:00 09/07/20 20:15 Clozapine 100 Mg Tablet PO 200 mg BEDTIME OZZY Administration Clozapine 50 mg 09/06/20 21:00 09/07/20 20:14 Clozapine 25 Mg Tablet PO 50 mg BEDTIME OZZY Administration Divalproex Sodium 1,500 mg 09/07/20 10:15 09/07/20 14:39 Divalproex Sodium Er 250 Mg Tab.Er.24h PO 1,500 mg DAILY OZZY Administration Docusate Sodium 100 mg 08/05/20 21:00 09/07/20 20:13 Docusate Sodium 100 Mg Capsule PO 100 mg BID@0830,2100 OZZY Administration Metoprolol Succinate 37.5 mg 08/05/20 21:00 09/07/20 20:15 Metoprolol Succinate Er 25 Mg Tab.Er.24h PO 37.5 mg BID OZZY Administration Protocol Olanzapine 10 mg 08/22/20 11:41 09/05/20 12:20 Olanzapine 10 Mg Vial IM 10 mg BID PRN Administration Psychosis Olanzapine 10 mg 08/25/20 13:06 09/07/20 09:37 Olanzapine Odt 10 Mg Tab.Rapdis TRANSLINGU 10 mg BID PRN Administration Psychosis Paliperidone 3 mg 09/07/20 09:00 09/07/20 08:32 Paliperidone Er 3 Mg Tab.Er.24 PO 3 mg DAILY OZZY Administration Paliperidone 6 mg 09/07/20 09:00 09/07/20 08:34 Paliperidone Er 6 Mg Tab.Er.24 PO 6 mg DAILY OZYZ Administration Quetiapine Fumarate 100 mg 08/16/20 22:10 09/06/20 00:08 Quetiapine Fumarate 100 Mg Tablet PO 100 mg BEDTIME PRN Administration Insomnia Topiramate 50 mg 08/05/20 21:00 09/07/20 20:15 Topiramate 25 Mg Tablet PO 50 mg BEDTIME OZZY Administration Vitamin D 25 mcg 08/06/20 09:00 09/07/20 08:34 Cholecalciferol (Vitamin D3) 25 Mcg Tablet PO 25 mcg DAILY OZZY Administration Allergies Allergies Allergy/AdvReac Type Severity Reaction Status Date / Time lithium [[place]] Allergy Severe TOXICITY Verified 07/28/20 18:08 thiothixene Allergy Severe SWELLING Verified 08/05/20 07:28 barium sulfate Allergy Intermediate NAUSEA & Verified 08/05/20 07:28 [BARIUM SULFATE] VOMITING haloperidol Allergy Intermediate MUSCLE Verified 07/28/20 18:08 TENSION IN LEGS benztropine Allergy Unknown benztropine Verified 08/05/20 07:28 mesylate- unknown diphenhydramine Allergy Unknown urinary Verified 08/05/20 07:28 [From Benadryl] retention fluphenazine Allergy Unknown UNKNOWN Verified 08/05/20 07:28 gabapentin [From NEURONTIN] Allergy Unknown UNKNOWN Verified 07/28/20 18:08 prolixen Allergy Unknown Unknown Uncoded 07/28/20 16:56 Assessment & Plan Assessment & Plan (1) Coronary artery disease: Status: Acute Code(s): I25.10 - Atherosclerotic heart disease of [place] coronary artery without angina pectoris (2) Aggression: Status: Acute Code(s): R46.89 - Other symptoms and signs involving appearance and behavior (3) Schizoaffective disorder: Status: Acute Code(s): F25.9 - Schizoaffective disorder, unspecified Assessment and Plan: recheck ANC has been refusing CBC last ANC was in the lower range of normal need to recheck it on Depakote and clozapine Greater than 50% of the session was spent on counseling and/or coordination of care
[2020-09-08 05:15] VITALS: BP 126/74; PULSE 105; RESP 22; TEMP 36.1; O2SAT 96
[2020-09-08] MEDS: OLANZapine ODT 10 MG TAB.RAPDIS TRANSLINGU ×2 (05:18→10:51)
[2020-09-08] MEDS: clonazePAM 1 MG TABLET PO ×2 (05:19→12:07)
[2020-09-08] MEDS: Aspirin 81 MG TAB.CHEW PO (08:46)
[2020-09-08] MEDS: Divalproex Sodium ER 250 MG TAB.ER.24H 1500 MG PO (08:46)
[2020-09-08] MEDS: Paliperidone ER 3 MG TAB.ER.24 PO (08:48)
[2020-09-08] MEDS: Cholecalciferol (Vitamin D3) 25 MCG TABLET PO (08:49)
[2020-09-08] MEDS: clonazePAM 0.5 MG TABLET PO ×2 (08:49→21:12)
[2020-09-08] MEDS: Docusate Sodium 100 MG CAPSULE PO ×2 (08:49→21:15)
[2020-09-08] MEDS: Paliperidone ER 6 MG TAB.ER.24 PO (08:49)
[2020-09-08 08:50] VITALS: BP 126/74; PULSE 105
[2020-09-08] MEDS: Metoprolol Succinate ER 25 MG TAB.ER.24H 37.5 MG PO ×2 (08:50→21:13)
[2020-09-08 09:58] LABS: MANUAL DIFF FLAG NO
[2020-09-08 10:03] LABS: Basophils Percent Auto 0.6 % (0-2); Eosinophils Absolute Auto 0.1 X10*3/uL (0.0-0.4); Eosinophils Percent Auto 1.6 % (0-4); Hemoglobin 12.5 g/dl (14.0-18.0); Imm Gran Abs Auto 0.04 X10*3/uL (0.00-0.03); Imm Gran Pct Auto 0.8 % (0.0-0.4); Lymphocytes Absolute Auto 1.2 X10*3/uL (1.2-4.9); Lymphocytes Percent Auto 22.6 % (20-40); Mean Corpuscular HGB Conc 31.3 g/dl (31.0-36.0); Mean Corpuscular Hemoglobin 27.5 pg (27.0-33.0); Mean Corpuscular Volume 87.9 fL (80-98); Monocytes Absolute Auto 0.7 X10*3/uL (0.1-1.2); Neutrophils Absolute Auto 3.2 X10*3/uL (2.0-8.3); Neutrophils Percent Auto 61.4 % (45-73); Platelet Count 126 X10*3/uL (160-400); Red Blood Count 4.55 X10*6/uL (4.60-5.80); Red Cell Distribution Width 15.1 % (11.0-16.0); White Blood Count 5.1 X10*3/uL (4.8-10.8)
[2020-09-08 10:20] LABS: Ammonia 50 umol/L (13-55)
[2020-09-08 18:00] VITALS: BP 131/77; PULSE 97; TEMP 36.8
[2020-09-08 21:13] VITALS: BP 131/77; PULSE 97
[2020-09-08] MEDS: cloZAPine 100 MG TABLET 200 MG PO (21:13)
[2020-09-08] MEDS: cloZAPine 25 MG TABLET 50 MG PO (21:15)
[2020-09-08] MEDS: Atorvastatin Calcium 20 MG TABLET PO (21:15)
[2020-09-08] MEDS: Topiramate 25 MG TABLET 50 MG PO (21:16)
--- NOTE | 2020-09-08 23:44 | P.PNPSI_ITS ---
Subjective Subjective Date of Service: 09/09/20 Reason For Visit: Psychosis Subjective Notes: H[place] Order Interim History: Pt continues to be intrusive threatening at times had cbc anc Medication Compliance: Intermittent Side effects from medications: Yes Mental Status Exam Mental Status Exam Patient Appearance: Disheveled and Unkempt Patient Orientation: Person Level of Consciousness: Awake Patient Behavior: Talkative, Hyperactive, Suspicious, Belligerent, Swearing, Invasion - Personal Space, Uncooperative and Pacing Mood Description: Hostile Affect Description: Hostile Ability to Follow Directions: Poor Speech Pattern: Rambling, Excessive, Loud and Includes Profanity Delusions: Paranoid Ideation, Grandiose and Present Thought Process: Incoherent Thought Content: positive for Disorganized, negative for Suicidal Ideation and negative for Homicidal Ideation Abnormal Motor Activity Signs and Symptoms: Hyperactivity Judgement: Poor Judgement and Insight: impaired Diagnostics Vital Signs (24Hr): Vital Signs - 24 hr 09/08/20 05:15 09/08/20 08:50 09/08/20 18:00 Temperature 97.0 F 98.3 F Pulse Rate 105 H 105 H 97 Respiratory Rate 22 H Blood Pressure 126/74 126/74 131/77 Pulse Oximetry 96 09/08/20 21:13 Temperature Pulse Rate 97 Respiratory Rate Blood Pressure 131/77 Pulse Oximetry Body Mass Index 33.9 Labs Results: 09/08/20 09:46 08/26/20 08:11 Labs: Laboratory Results - last 48 hr 09/07/20 09/08/20 09/08/20 09:48 09:46 09:46 WBC 5.1 RBC 4.55 L Hgb 12.5 L Hct 40.0 L MCV 87.9 MCH 27.5 MCHC 31.3 RDW 15.1 Plt Count 126 L MPV 13.0 H Immature Gran % (Auto) 0.8 H Neut % (Auto) 61.4 Lymph % (Auto) 22.6 [place] % (Auto) 13.0 H Eos % (Auto) 1.6 Baso % (Auto) 0.6 Lymph # (Auto) 1.2 [place] # (Auto) 0.7 Eos # (Auto) 0.1 Baso # (Auto) 0.0 Abs Immat Gran (auto) 0.04 H Absolute Neuts (auto) 3.2 Absolute Nucleated RBC 0.000 Nucleated RBC % (auto) 0.0 Ammonia 50 Valproic Acid 41.6 L Medications Medications Current Medications Generic Name Dose Route Start Last Admin Trade Name Freq PRN Reason Stop Dose Admin Acetaminophen 650 mg 08/26/20 10:22 Acetaminophen 325 Mg Tablet PO Q6H PRN Pain, Mild (Pain Scale 1-3) Albuterol Sulfate 2 puff 08/05/20 19:32 09/06/20 15:29 Albuterol Sulfate 90 Mcg 8 Gm Inhaler INHALE 2 puff DAILY PRN Administration asthma Aspirin 81 mg 08/06/20 09:00 09/08/20 08:46 Aspirin 81 Mg Tab.Chew PO 81 mg DAILY OZZY Administration Atorvastatin Calcium 20 mg 08/05/20 21:00 09/08/20 21:15 Atorvastatin Calcium 20 Mg Tablet PO 20 mg BEDTIME OZZY Administration Clonazepam 0.5 mg 09/06/20 21:00 09/08/20 21:12 Clonazepam 0.5 Mg Tablet PO 0.5 mg BID OZZY Administration Clonazepam 1 mg 09/07/20 14:27 09/08/20 12:07 Clonazepam 1 Mg Tablet PO 1 mg BID PRN Administration anxiety/restlessness Clozapine 200 mg 09/06/20 21:00 09/08/20 21:13 Clozapine 100 Mg Tablet PO 200 mg BEDTIME OZZY Administration Clozapine 50 mg 09/06/20 21:00 09/08/20 21:15 Clozapine 25 Mg Tablet PO 50 mg BEDTIME OZZY Administration Divalproex Sodium 1,500 mg 09/07/20 10:15 09/08/20 08:46 Divalproex Sodium Er 250 Mg Tab.Er.24h PO 1,500 mg DAILY OZZY Administration Docusate Sodium 100 mg 08/05/20 21:00 09/08/20 21:15 Docusate Sodium 100 Mg Capsule PO 100 mg BID@0830,2100 OZZY Administration Metoprolol Succinate 37.5 mg 08/05/20 21:00 09/08/20 21:13 Metoprolol Succinate Er 25 Mg Tab.Er.24h PO 37.5 mg BID OZZY Administration Protocol Olanzapine 10 mg 08/22/20 11:41 09/05/20 12:20 Olanzapine 10 Mg Vial IM 10 mg BID PRN Administration Psychosis Olanzapine 10 mg 08/25/20 13:06 09/08/20 10:51 Olanzapine Odt 10 Mg Tab.Rapdis TRANSLINGU 10 mg BID PRN Administration Psychosis Paliperidone 3 mg 09/07/20 09:00 09/08/20 08:48 Paliperidone Er 3 Mg Tab.Er.24 PO 3 mg DAILY OZZY Administration Paliperidone 6 mg 09/07/20 09:00 09/08/20 08:49 Paliperidone Er 6 Mg Tab.Er.24 PO 6 mg DAILY OZZY Administration Quetiapine Fumarate 100 mg 08/16/20 22:10 09/06/20 00:08 Quetiapine Fumarate 100 Mg Tablet PO 100 mg BEDTIME PRN Administration Insomnia Topiramate 50 mg 08/05/20 21:00 09/08/20 21:16 Topiramate 25 Mg Tablet PO 50 mg BEDTIME OZZY Administration Vitamin D 25 mcg 08/06/20 09:00 09/08/20 08:49 Cholecalciferol (Vitamin D3) 25 Mcg Tablet PO 25 mcg DAILY OZZY Administration Allergies Allergies Allergy/AdvReac Type Severity Reaction Status Date / Time lithium [[place]] Allergy Severe TOXICITY Verified 07/28/20 18:08 thiothixene Allergy Severe SWELLING Verified 08/05/20 07:28 barium sulfate Allergy Intermediate NAUSEA & Verified 08/05/20 07:28 [BARIUM SULFATE] VOMITING haloperidol Allergy Intermediate MUSCLE Verified 07/28/20 18:08 TENSION IN LEGS benztropine Allergy Unknown benztropine Verified 08/05/20 07:28 mesylate- unknown diphenhydramine Allergy Unknown urinary Verified 08/05/20 07:28 [From Benadryl] retention fluphenazine Allergy Unknown UNKNOWN Verified 08/05/20 07:28 gabapentin [From NEURONTIN] Allergy Unknown UNKNOWN Verified 07/28/20 18:08 prolixen Allergy Unknown Unknown Uncoded 07/28/20 16:56 Assessment & Plan Assessment & Plan (1) Hypertension: Status: Acute Code(s): I10 - Essential (primary) hypertension (2) Coronary artery disease: Status: Acute Code(s): I25.10 - Atherosclerotic heart disease of [place] coronary artery without angina pectoris (3) Aggression: Status: Acute Code(s): R46.89 - Other symptoms and signs involving appearance and behavior Assessment and Plan: depakopte clozaril (4) Schizoaffective disorder: Status: Acute Code(s): F25.9 - Schizoaffective disorder, unspecified Assessment and Plan: clozapine invega depakote Greater than 50% of the session was spent on counseling and/or coordination of care
[2020-09-09] MEDS: OLANZapine ODT 10 MG TAB.RAPDIS TRANSLINGU (04:02)
[2020-09-09] MEDS: clonazePAM 1 MG TABLET PO ×2 (04:02→19:10)
[2020-09-09 04:05] VITALS: BP 127/69; PULSE 93; RESP 16; TEMP 36.1; O2SAT 96
[2020-09-09] MEDS: Paliperidone ER 3 MG TAB.ER.24 PO (09:05)
[2020-09-09] MEDS: Divalproex Sodium ER 250 MG TAB.ER.24H 1500 MG PO (09:08)
[2020-09-09 09:09] VITALS: BP 127/69; PULSE 93
[2020-09-09] MEDS: Paliperidone ER 6 MG TAB.ER.24 PO (09:09)
[2020-09-09] MEDS: Metoprolol Succinate ER 25 MG TAB.ER.24H 37.5 MG PO ×2 (09:09→20:06)
[2020-09-09] MEDS: clonazePAM 0.5 MG TABLET PO ×2 (09:11→20:05)
[2020-09-09] MEDS: Aspirin 81 MG TAB.CHEW PO (09:11)
[2020-09-09] MEDS: Docusate Sodium 100 MG CAPSULE PO ×2 (09:11→20:05)
[2020-09-09] MEDS: Cholecalciferol (Vitamin D3) 25 MCG TABLET PO (09:12)
[2020-09-09 15:15] VITALS: BMI 33.8
[2020-09-09 18:00] VITALS: BP 131/63; PULSE 101; RESP 20; TEMP 36.1; O2SAT 96
[2020-09-09] MEDS: Topiramate 25 MG TABLET 50 MG PO (20:04)
[2020-09-09] MEDS: Atorvastatin Calcium 20 MG TABLET PO (20:05)
[2020-09-09] MEDS: cloZAPine 100 MG TABLET 200 MG PO (20:05)
[2020-09-09 20:06] VITALS: BP 131/63; PULSE 101
[2020-09-09] MEDS: cloZAPine 25 MG TABLET 50 MG PO (20:06)
--- NOTE | 2020-09-09 23:56 | HO.PSYCHPN ---
Subjective Subjective Date of Service: 09/09/20 Reason For Visit: Psychosis Subjective Notes: Haines Order Interim History: patient has been excepting Invega clozapine and Depakote had previously been refusing doses. Has not been cooperating with EKG. On one-to-one irritable belittle lying disorganized thought disheveled long-term hospital referral Medication Compliance: Intermittent Mental Status Exam Mental Status Exam Patient Appearance: Disheveled and Unkempt Patient Orientation: Person Level of Consciousness: Awake Patient Behavior: Talkative, Hyperactive, Suspicious, Belligerent, Swearing, Invasion - Personal Space, Uncooperative and Pacing Mood Description: Hostile Affect Description: Hostile Ability to Follow Directions: Poor Speech Pattern: Rambling, Excessive, Loud and Includes Profanity Delusions: Paranoid Ideation, Grandiose and Present Thought Process: Incoherent Thought Content: positive for Disorganized, negative for Suicidal Ideation and negative for Homicidal Ideation Abnormal Motor Activity Signs and Symptoms: Hyperactivity Judgement: Poor Judgement and Insight: impaired Diagnostics Vital Signs (24Hr): Vital Signs - 24 hr 09/09/20 04:05 09/09/20 09:09 09/09/20 18:00 Temperature 97 F 97 F Pulse Rate 93 93 101 H Respiratory Rate 16 20 Blood Pressure 127/69 127/69 131/63 Pulse Oximetry 96 96 09/09/20 20:06 Temperature Pulse Rate 101 H Respiratory Rate Blood Pressure 131/63 Pulse Oximetry Body Mass Index 33.8 Labs Results: 09/08/20 09:46 08/26/20 08:11 Labs: Laboratory Results - last 48 hr 09/08/20 09/08/20 09:46 09:46 WBC 5.1 RBC 4.55 L Hgb 12.5 L Hct 40.0 L MCV 87.9 MCH 27.5 MCHC 31.3 RDW 15.1 Plt Count 126 L MPV 13.0 H Immature Gran % (Auto) 0.8 H Neut % (Auto) 61.4 Lymph % (Auto) 22.6 [place] % (Auto) 13.0 H Eos % (Auto) 1.6 Baso % (Auto) 0.6 Lymph # (Auto) 1.2 [place] # (Auto) 0.7 Eos # (Auto) 0.1 Baso # (Auto) 0.0 Abs Immat Gran (auto) 0.04 H Absolute Neuts (auto) 3.2 Absolute Nucleated RBC 0.000 Nucleated RBC % (auto) 0.0 Ammonia 50 Medications Medications Current Medications Generic Name Dose Route Start Last Admin Trade Name Freq PRN Reason Stop Dose Admin Acetaminophen 650 mg 08/26/20 10:22 Acetaminophen 325 Mg Tablet PO Q6H PRN Pain, Mild (Pain Scale 1-3) Albuterol Sulfate 2 puff 08/05/20 19:32 09/06/20 15:29 Albuterol Sulfate 90 Mcg 8 Gm Inhaler INHALE 2 puff DAILY PRN Administration asthma Aspirin 81 mg 08/06/20 09:00 09/09/20 09:11 Aspirin 81 Mg Tab.Chew PO 81 mg DAILY OZZY Administration Atorvastatin Calcium 20 mg 08/05/20 21:00 09/09/20 20:05 Atorvastatin Calcium 20 Mg Tablet PO 20 mg BEDTIME OZZY Administration Clonazepam 0.5 mg 09/06/20 21:00 09/09/20 20:05 Clonazepam 0.5 Mg Tablet PO 0.5 mg BID OZZY Administration Clonazepam 1 mg 09/07/20 14:27 09/09/20 19:10 Clonazepam 1 Mg Tablet PO 1 mg BID PRN Administration anxiety/restlessness Clozapine 200 mg 09/06/20 21:00 09/09/20 20:05 Clozapine 100 Mg Tablet PO 200 mg BEDTIME OZZY Administration Clozapine 50 mg 09/06/20 21:00 09/09/20 20:06 Clozapine 25 Mg Tablet PO 50 mg BEDTIME OZZY Administration Divalproex Sodium 1,500 mg 09/07/20 10:15 09/09/20 09:08 Divalproex Sodium Er 250 Mg Tab.Er.24h PO 1,500 mg DAILY OZZY Administration Docusate Sodium 100 mg 08/05/20 21:00 09/09/20 20:05 Docusate Sodium 100 Mg Capsule PO 100 mg BID@0830,2100 OZZY Administration Metoprolol Succinate 37.5 mg 08/05/20 21:00 09/09/20 20:06 Metoprolol Succinate Er 25 Mg Tab.Er.24h PO 37.5 mg BID OZZY Administration Protocol Olanzapine 10 mg 08/22/20 11:41 09/05/20 12:20 Olanzapine 10 Mg Vial IM 10 mg BID PRN Administration Psychosis Olanzapine 10 mg 08/25/20 13:06 09/09/20 04:02 Olanzapine Odt 10 Mg Tab.Rapdis TRANSLINGU 10 mg BID PRN Administration Psychosis Paliperidone 3 mg 09/07/20 09:00 09/09/20 09:05 Paliperidone Er 3 Mg Tab.Er.24 PO 3 mg DAILY OZZY Administration Paliperidone 6 mg 09/07/20 09:00 09/09/20 09:09 Paliperidone Er 6 Mg Tab.Er.24 PO 6 mg DAILY OZZY Administration Quetiapine Fumarate 100 mg 08/16/20 22:10 09/06/20 00:08 Quetiapine Fumarate 100 Mg Tablet PO 100 mg BEDTIME PRN Administration Insomnia Topiramate 50 mg 08/05/20 21:00 09/09/20 20:04 Topiramate 25 Mg Tablet PO 50 mg BEDTIME OZZY Administration Vitamin D 25 mcg 08/06/20 09:00 09/09/20 09:12 Cholecalciferol (Vitamin D3) 25 Mcg Tablet PO 25 mcg DAILY OZZY Administration Allergies Allergies Allergy/AdvReac Type Severity Reaction Status Date / Time lithium [[place]] Allergy Severe TOXICITY Verified 07/28/20 18:08 thiothixene Allergy Severe SWELLING Verified 08/05/20 07:28 barium sulfate Allergy Intermediate NAUSEA & Verified 08/05/20 07:28 [BARIUM SULFATE] VOMITING haloperidol Allergy Intermediate MUSCLE Verified 07/28/20 18:08 TENSION IN LEGS benztropine Allergy Unknown benztropine Verified 08/05/20 07:28 mesylate- unknown diphenhydramine Allergy Unknown urinary Verified 08/05/20 07:28 [From Benadryl] retention fluphenazine Allergy Unknown UNKNOWN Verified 08/05/20 07:28 gabapentin [From NEURONTIN] Allergy Unknown UNKNOWN Verified 07/28/20 18:08 prolixen Allergy Unknown Unknown Uncoded 07/28/20 16:56 Assessment & Plan Assessment & Plan (1) Hypertension: Status: Acute Code(s): I10 - Essential (primary) hypertension (2) Coronary artery disease: Status: Acute Code(s): I25.10 - Atherosclerotic heart disease of [place] coronary artery without angina pectoris (3) Aggression: Status: Acute Code(s): R46.89 - Other symptoms and signs involving appearance and behavior (4) Schizoaffective disorder: Status: Acute Code(s): F25.9 - Schizoaffective disorder, unspecified Assessment and Plan: she continue treatment plan referral for longer-term hospitalization unable to be stabilized in the community and in this hospital setting. Increase Invega to 12 mg as tolerated will increase clozapine monitor ANC need to check EKG patient has not been cooperative Greater than 50% of the session was spent on counseling and/or coordination of care
--- NOTE | 2020-09-10 | ECG_ITS ---
Test Reason : ABN EKG Blood Pressure : / mmHG Vent. Rate : 087 BPM Atrial Rate : 087 BPM P-R Int : 158 ms QRS Dur : 108 ms QT Int : 418 ms P-R-T Axes : 046 032 165 degrees QTc Int : 502 ms Normal sinus rhythm Left ventricular hypertrophy with repolarization abnormality Prolonged QT Abnormal ECG When compared with ECG of 08-SEP-2020 17:23, No significant change was found Referred By: Rocael Pacheco Electronically Signed By:JEREMIAS MARTIN MD
[2020-09-10 06:25] VITALS: BP 113/86; PULSE 90; RESP 18; TEMP 36.4; O2SAT 96
[2020-09-10] MEDS: Albuterol Sulfate 90 MCG 8 GM INHALER 2 PUFF INHALE (06:30)
[2020-09-10] MEDS: Divalproex Sodium ER 250 MG TAB.ER.24H 1500 MG PO (09:02)
[2020-09-10] MEDS: Aspirin 81 MG TAB.CHEW PO (09:03)
[2020-09-10] MEDS: Paliperidone ER 3 MG TAB.ER.24 PO (09:03)
[2020-09-10 09:04] VITALS: BP 113/86; PULSE 90
[2020-09-10] MEDS: Cholecalciferol (Vitamin D3) 25 MCG TABLET PO (09:04)
[2020-09-10] MEDS: Metoprolol Succinate ER 25 MG TAB.ER.24H 37.5 MG PO ×2 (09:04→19:57)
[2020-09-10] MEDS: clonazePAM 0.5 MG TABLET PO ×2 (09:04→19:56)
[2020-09-10] MEDS: Paliperidone ER 6 MG TAB.ER.24 PO (09:04)
[2020-09-10] MEDS: Docusate Sodium 100 MG CAPSULE PO ×2 (09:04→19:57)
--- NOTE | 2020-09-10 09:32 | P.PNPSI_ITS ---
Subjective Subjective Date of Service: 09/10/20 Reason For Visit: Psychosis Subjective Notes: Legal Status (7, 8 and 8b) Interim History: Navid remains largely unchanged. He is angry and irritable. He is more or less taking medication. He is in need of 1:1 due to behavioral dyscontrol. Medication Compliance: Intermittent Side effects from medications: No Attending Groups: No Review of Systems Acute medical concerns: No Medical Review of Systems: unchanged Mental Status Exam Mental Status Exam Patient Appearance: Disheveled and Unkempt Patient Orientation: Person Level of Consciousness: Awake Patient Behavior: Talkative, Hyperactive, Suspicious, Belligerent, Swearing, Invasion - Personal Space, Uncooperative and Pacing Mood Description: Hostile Affect Description: Hostile Ability to Follow Directions: Poor Speech Pattern: Rambling, Excessive, Loud and Includes Profanity Delusions: Paranoid Ideation, Grandiose and Present Thought Process: Incoherent Thought Content: positive for Disorganized, negative for Suicidal Ideation and negative for Homicidal Ideation Abnormal Motor Activity Signs and Symptoms: Hyperactivity Judgement: Poor Judgement and Insight: impaired Diagnostics Vital Signs (24Hr): Vital Signs - 24 hr 09/09/20 18:00 09/09/20 20:06 09/10/20 06:25 Temperature 97 F 97.5 F Pulse Rate 101 H 101 H 90 Respiratory Rate 20 18 Blood Pressure 131/63 131/63 113/86 Pulse Oximetry 96 96 09/10/20 09:04 Temperature Pulse Rate 90 Respiratory Rate Blood Pressure 113/86 Pulse Oximetry Body Mass Index 33.8 Labs Results: 09/08/20 09:46 08/26/20 08:11 Labs: Laboratory Results - last 48 hr 09/08/20 09/08/20 09:46 09:46 WBC 5.1 RBC 4.55 L Hgb 12.5 L Hct 40.0 L MCV 87.9 MCH 27.5 MCHC 31.3 RDW 15.1 Plt Count 126 L MPV 13.0 H Immature Gran % (Auto) 0.8 H Neut % (Auto) 61.4 Lymph % (Auto) 22.6 [place] % (Auto) 13.0 H Eos % (Auto) 1.6 Baso % (Auto) 0.6 Lymph # (Auto) 1.2 [place] # (Auto) 0.7 Eos # (Auto) 0.1 Baso # (Auto) 0.0 Abs Immat Gran (auto) 0.04 H Absolute Neuts (auto) 3.2 Absolute Nucleated RBC 0.000 Nucleated RBC % (auto) 0.0 Ammonia 50 Medications Medications Current Medications Generic Name Dose Route Start Last Admin Trade Name Freq PRN Reason Stop Dose Admin Acetaminophen 650 mg 08/26/20 10:22 Acetaminophen 325 Mg Tablet PO Q6H PRN Pain, Mild (Pain Scale 1-3) Albuterol Sulfate 2 puff 08/05/20 19:32 09/10/20 06:30 Albuterol Sulfate 90 Mcg 8 Gm Inhaler INHALE 2 puff DAILY PRN Administration asthma Aspirin 81 mg 08/06/20 09:00 09/10/20 09:03 Aspirin 81 Mg Tab.Chew PO 81 mg DAILY OZZY Administration Atorvastatin Calcium 20 mg 08/05/20 21:00 09/09/20 20:05 Atorvastatin Calcium 20 Mg Tablet PO 20 mg BEDTIME OZZY Administration Clonazepam 0.5 mg 09/06/20 21:00 09/10/20 09:04 Clonazepam 0.5 Mg Tablet PO 0.5 mg BID OZZY Administration Clonazepam 1 mg 09/07/20 14:27 09/09/20 19:10 Clonazepam 1 Mg Tablet PO 1 mg BID PRN Administration anxiety/restlessness Clozapine 200 mg 09/06/20 21:00 09/09/20 20:05 Clozapine 100 Mg Tablet PO 200 mg BEDTIME OZZY Administration Clozapine 50 mg 09/06/20 21:00 09/09/20 20:06 Clozapine 25 Mg Tablet PO 50 mg BEDTIME OZZY Administration Divalproex Sodium 1,500 mg 09/07/20 10:15 09/10/20 09:02 Divalproex Sodium Er 250 Mg Tab.Er.24h PO 1,500 mg DAILY OZZY Administration Docusate Sodium 100 mg 08/05/20 21:00 09/10/20 09:04 Docusate Sodium 100 Mg Capsule PO 100 mg BID@0830,2100 OZZY Administration Metoprolol Succinate 37.5 mg 08/05/20 21:00 09/10/20 09:04 Metoprolol Succinate Er 25 Mg Tab.Er.24h PO 37.5 mg BID OZZY Administration Protocol Olanzapine 10 mg 08/22/20 11:41 09/05/20 12:20 Olanzapine 10 Mg Vial IM 10 mg BID PRN Administration Psychosis Olanzapine 10 mg 08/25/20 13:06 09/09/20 04:02 Olanzapine Odt 10 Mg Tab.Rapdis TRANSLINGU 10 mg BID PRN Administration Psychosis Paliperidone 3 mg 09/07/20 09:00 09/10/20 09:03 Paliperidone Er 3 Mg Tab.Er.24 PO 3 mg DAILY OZZY Administration Paliperidone 6 mg 09/07/20 09:00 09/10/20 09:04 Paliperidone Er 6 Mg Tab.Er.24 PO 6 mg DAILY OZZY Administration Quetiapine Fumarate 100 mg 08/16/20 22:10 09/06/20 00:08 Quetiapine Fumarate 100 Mg Tablet PO 100 mg BEDTIME PRN Administration Insomnia Topiramate 50 mg 08/05/20 21:00 09/09/20 20:04 Topiramate 25 Mg Tablet PO 50 mg BEDTIME OZZY Administration Vitamin D 25 mcg 08/06/20 09:00 09/10/20 09:04 Cholecalciferol (Vitamin D3) 25 Mcg Tablet PO 25 mcg DAILY OZZY Administration Allergies Allergies Allergy/AdvReac Type Severity Reaction Status Date / Time lithium [[place]] Allergy Severe TOXICITY Verified 07/28/20 18:08 thiothixene Allergy Severe SWELLING Verified 08/05/20 07:28 barium sulfate Allergy Intermediate NAUSEA & Verified 08/05/20 07:28 [BARIUM SULFATE] VOMITING haloperidol Allergy Intermediate MUSCLE Verified 07/28/20 18:08 TENSION IN LEGS benztropine Allergy Unknown benztropine Verified 08/05/20 07:28 mesylate- unknown diphenhydramine Allergy Unknown urinary Verified 08/05/20 07:28 [From Benadryl] retention fluphenazine Allergy Unknown UNKNOWN Verified 08/05/20 07:28 gabapentin [From NEURONTIN] Allergy Unknown UNKNOWN Verified 07/28/20 18:08 prolixen Allergy Unknown Unknown Uncoded 07/28/20 16:56 Assessment & Plan Assessment & Plan (1) Schizoaffective disorder: Status: Acute Code(s): F25.9 - Schizoaffective disorder, unspecified Assessment and Plan: CT current treatment plan Greater than 50% of the session was spent on counseling and/or coordination of care Patient educated on: diagnosis and medication risk/benefits Informed Consent: does not understand Reason for contiued inpatient stay Substantial Risk for: harm to others, rapid decompensation and med/psych decompensation
[2020-09-10] MEDS: OLANZapine ODT 10 MG TAB.RAPDIS TRANSLINGU (16:02)
[2020-09-10 18:00] VITALS: BP 117/58; PULSE 96; TEMP 36.2; O2SAT 96
[2020-09-10] MEDS: clonazePAM 1 MG TABLET PO (19:01)
[2020-09-10] MEDS: cloZAPine 100 MG TABLET 200 MG PO (19:56)
[2020-09-10 19:57] VITALS: BP 117/58; PULSE 96
[2020-09-10] MEDS: Atorvastatin Calcium 20 MG TABLET PO (19:57)
[2020-09-10] MEDS: QUEtiapine Fumarate 100 MG TABLET PO (19:57)
[2020-09-10] MEDS: Topiramate 25 MG TABLET 50 MG PO (19:59)
[2020-09-10] MEDS: cloZAPine 25 MG TABLET 50 MG PO (19:59)
[2020-09-11 07:11] VITALS: TEMP 35.8
[2020-09-11] MEDS: Divalproex Sodium ER 250 MG TAB.ER.24H 1500 MG PO (08:20)
[2020-09-11 08:23] VITALS: BP 155/85; PULSE 87
[2020-09-11] MEDS: Paliperidone ER 6 MG TAB.ER.24 PO (08:23)
[2020-09-11] MEDS: Docusate Sodium 100 MG CAPSULE PO ×2 (08:23→20:27)
[2020-09-11] MEDS: Paliperidone ER 3 MG TAB.ER.24 PO (08:23)
[2020-09-11] MEDS: Aspirin 81 MG TAB.CHEW PO (08:23)
[2020-09-11] MEDS: Metoprolol Succinate ER 25 MG TAB.ER.24H 37.5 MG PO ×2 (08:23→20:29)
[2020-09-11] MEDS: Cholecalciferol (Vitamin D3) 25 MCG TABLET PO (08:23)
[2020-09-11] MEDS: clonazePAM 0.5 MG TABLET PO ×3 (08:23→20:28)
[2020-09-11 08:34] VITALS: BP 155/85; PULSE 87; TEMP 36; O2SAT 95
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
[2020-09-11] MEDS: OLANZapine ODT 10 MG TAB.RAPDIS TRANSLINGU (13:42)
[2020-09-11] MEDS: clonazePAM 1 MG TABLET PO (13:42)
[2020-09-11 18:00] VITALS: BP 105/62; PULSE 101; TEMP 36.8
[2020-09-11] MEDS: Atorvastatin Calcium 20 MG TABLET PO (20:27)
[2020-09-11] MEDS: cloZAPine 100 MG TABLET 200 MG PO (20:28)
[2020-09-11] MEDS: cloZAPine 25 MG TABLET 50 MG PO (20:28)
[2020-09-11] MEDS: Topiramate 25 MG TABLET 50 MG PO (20:28)
[2020-09-11 20:29] VITALS: BP 105/62; PULSE 101
[2020-09-12 06:00] VITALS: BP 143/64; PULSE 96; TEMP 36.1
[2020-09-12] MEDS: Aspirin 81 MG TAB.CHEW PO (09:38)
[2020-09-12] MEDS: Paliperidone ER 3 MG TAB.ER.24 PO (09:39)
[2020-09-12] MEDS: Docusate Sodium 100 MG CAPSULE PO ×2 (09:39→21:39)
[2020-09-12] MEDS: clonazePAM 0.5 MG TABLET PO ×2 (09:39→14:20)
[2020-09-12] MEDS: Cholecalciferol (Vitamin D3) 25 MCG TABLET PO (09:39)
[2020-09-12 09:40] VITALS: BP 143/64; PULSE 96
[2020-09-12] MEDS: Paliperidone ER 6 MG TAB.ER.24 PO (09:40)
[2020-09-12] MEDS: Metoprolol Succinate ER 25 MG TAB.ER.24H 37.5 MG PO ×2 (09:40→21:40)
[2020-09-12] MEDS: Divalproex Sodium ER 250 MG TAB.ER.24H 1500 MG PO (09:41)
--- NOTE | 2020-09-12 10:37 | P.PNPSI_ITS ---
Subjective Subjective Date of Service: 09/12/20 Reason For Visit: Psychosis Subjective Notes: Legal Status (sec 8) Interim History: you take a lunch break I am busy pt dismissed provider Medication Compliance: Yes Side effects from medications: No Attending Groups: No Review of Systems Medical Review of Systems: unchanged Mental Status Exam Mental Status Exam Patient Appearance: Disheveled Patient Orientation: Person and Place Level of Consciousness: Inappropriate Patient Behavior: Resistive to Care and Uncooperative Mood Description: Hostile Affect Description: Angry Patient Cognition Impaired: Yes Ability to Follow Directions: Poor Speech Pattern: Rambling Delusions: Paranoid Ideation and Grandiose Thought Process: Illogical Thought Content: positive for Tangential and positive for Disorganized Depressive Symptoms: Increased Irritability Judgement: Poor Diagnostics Vital Signs (24Hr): Vital Signs - 24 hr 09/11/20 18:00 09/11/20 20:29 09/12/20 06:00 Temperature 98.2 F 97.0 F Pulse Rate 101 H 101 H 96 Blood Pressure 105/62 105/62 143/64 H 09/12/20 09:40 Temperature Pulse Rate 96 Blood Pressure 143/64 H Body Mass Index 33.8 Labs Results: 09/08/20 09:46 08/26/20 08:11 Medications Medications Current Medications Generic Name Dose Route Start Last Admin Trade Name Freq PRN Reason Stop Dose Admin Acetaminophen 650 mg 08/26/20 10:22 Acetaminophen 325 Mg Tablet PO Q6H PRN Pain, Mild (Pain Scale 1-3) Albuterol Sulfate 2 puff 08/05/20 19:32 09/10/20 06:30 Albuterol Sulfate 90 Mcg 8 Gm Inhaler INHALE 2 puff DAILY PRN Administration asthma Aspirin 81 mg 08/06/20 09:00 09/12/20 09:38 Aspirin 81 Mg Tab.Chew PO 81 mg DAILY OZZY Administration Atorvastatin Calcium 20 mg 08/05/20 21:00 09/11/20 20:27 Atorvastatin Calcium 20 Mg Tablet PO 20 mg BEDTIME OZZY Administration Clonazepam 1 mg 09/11/20 14:07 Clonazepam 1 Mg Tablet PO RQ6H PRN anxiety/restlessness Clonazepam 0.5 mg 09/11/20 15:00 09/12/20 09:39 Clonazepam 0.5 Mg Tablet PO 0.5 mg TID OZZY Administration Clozapine 200 mg 09/06/20 21:00 09/11/20 20:28 Clozapine 100 Mg Tablet PO 200 mg BEDTIME OZZY Administration Clozapine 50 mg 09/06/20 21:00 09/11/20 20:28 Clozapine 25 Mg Tablet PO 50 mg BEDTIME OZZY Administration Divalproex Sodium 1,500 mg 09/07/20 10:15 09/12/20 09:41 Divalproex Sodium Er 250 Mg Tab.Er.24h PO 1,500 mg DAILY OZZY Administration Docusate Sodium 100 mg 08/05/20 21:00 09/12/20 09:39 Docusate Sodium 100 Mg Capsule PO 100 mg BID@0830,2100 OZZY Administration Metoprolol Succinate 37.5 mg 08/05/20 21:00 09/12/20 09:40 Metoprolol Succinate Er 25 Mg Tab.Er.24h PO 37.5 mg BID OZZY Administration Protocol Olanzapine 10 mg 08/22/20 11:41 09/05/20 12:20 Olanzapine 10 Mg Vial IM 10 mg BID PRN Administration Psychosis Olanzapine 10 mg 09/11/20 14:06 Olanzapine Odt 10 Mg Tab.Rapdis TRANSLINGU RQ6H PRN Psychosis Paliperidone 3 mg 09/07/20 09:00 09/12/20 09:39 Paliperidone Er 3 Mg Tab.Er.24 PO 3 mg DAILY OZZY Administration Paliperidone 6 mg 09/07/20 09:00 09/12/20 09:40 Paliperidone Er 6 Mg Tab.Er.24 PO 6 mg DAILY OZZY Administration Quetiapine Fumarate 100 mg 08/16/20 22:10 09/10/20 19:57 Quetiapine Fumarate 100 Mg Tablet PO 100 mg BEDTIME PRN Administration Insomnia Topiramate 50 mg 08/05/20 21:00 09/11/20 20:28 Topiramate 25 Mg Tablet PO 50 mg BEDTIME OZZY Administration Vitamin D 25 mcg 08/06/20 09:00 09/12/20 09:39 Cholecalciferol (Vitamin D3) 25 Mcg Tablet PO 25 mcg DAILY OZZY Administration Allergies Allergies Allergy/AdvReac Type Severity Reaction Status Date / Time lithium [[place]] Allergy Severe TOXICITY Verified 07/28/20 18:08 thiothixene Allergy Severe SWELLING Verified 08/05/20 07:28 barium sulfate Allergy Intermediate NAUSEA & Verified 08/05/20 07:28 [BARIUM SULFATE] VOMITING haloperidol Allergy Intermediate MUSCLE Verified 10/21/20 18:08 TENSION IN LEGS benztropine Allergy Unknown benztropine Verified 08/05/20 07:28 mesylate- unknown diphenhydramine Allergy Unknown urinary Verified 08/05/20 07:28 [From Benadryl] retention fluphenazine Allergy Unknown UNKNOWN Verified 08/05/20 07:28 gabapentin [From NEURONTIN] Allergy Unknown UNKNOWN Verified 07/28/20 18:08 prolixen Allergy Unknown Unknown Uncoded 07/28/20 16:56 Assessment & Plan Assessment & Plan (1) Schizoaffective disorder: Status: Acute Code(s): F25.9 - Schizoaffective disorder, unspecified Assessment and Plan: ongoing lability, taking meds, on close obs Greater than 50% of the session was spent on counseling and/or coordination of care
[2020-09-12 18:00] VITALS: BP 132/69; PULSE 96; TEMP 36.5
[2020-09-12] MEDS: Topiramate 25 MG TABLET 50 MG PO (21:38)
[2020-09-12] MEDS: Atorvastatin Calcium 20 MG TABLET PO (21:39)
[2020-09-12] MEDS: cloZAPine 100 MG TABLET 200 MG PO (21:39)
[2020-09-12] MEDS: cloZAPine 25 MG TABLET 50 MG PO (21:39)
[2020-09-12 21:40] VITALS: BP 132/69; PULSE 96
--- NOTE | 2020-09-12 22:59 | PC.NURSE ---
At 2130 Pt given meds, pt refused his meds. Pt said he needed to seee them come out of the bubble. RN came back down to med room. After a few minutes pt came down with his [facility] staff member. Pt given another chance to take meds, he began swearing and through them in the trash. RN, pulled more meds without Klonopin. Pt refused to take Klonopin. Pt reports that as soon as he leaves this place he will stop taking his meds. Pt irritable at the end of the evening.
[2020-09-13 06:15] VITALS: BP 138/69; PULSE 91; RESP 22; TEMP 36; O2SAT 97
[2020-09-13] MEDS: Paliperidone ER 3 MG TAB.ER.24 PO (09:27)
[2020-09-13] MEDS: Aspirin 81 MG TAB.CHEW PO (09:27)
[2020-09-13 09:28] VITALS: BP 138/69; PULSE 91
[2020-09-13] MEDS: clonazePAM 0.5 MG TABLET PO ×3 (09:28→20:44)
[2020-09-13] MEDS: Cholecalciferol (Vitamin D3) 25 MCG TABLET PO (09:28)
[2020-09-13] MEDS: Metoprolol Succinate ER 25 MG TAB.ER.24H 37.5 MG PO ×2 (09:28→20:45)
[2020-09-13] MEDS: Docusate Sodium 100 MG CAPSULE PO ×2 (09:28→20:44)
[2020-09-13] MEDS: Paliperidone ER 6 MG TAB.ER.24 PO (09:28)
[2020-09-13] MEDS: Divalproex Sodium ER 250 MG TAB.ER.24H 1500 MG PO (09:30)
[2020-09-13] MEDS: OLANZapine ODT 10 MG TAB.RAPDIS TRANSLINGU (09:31)
[2020-09-13 17:37] VITALS: BP 152/84; PULSE 95; TEMP 36.6
[2020-09-13] MEDS: cloZAPine 100 MG TABLET 200 MG PO (20:44)
[2020-09-13] MEDS: Topiramate 25 MG TABLET 50 MG PO (20:44)
[2020-09-13 20:45] VITALS: BP 152/84; PULSE 95
[2020-09-13] MEDS: Atorvastatin Calcium 20 MG TABLET PO (20:45)
[2020-09-13] MEDS: cloZAPine 25 MG TABLET 50 MG PO (20:45)
--- NOTE | 2020-09-13 21:37 | HO.PSYCHPN ---
Subjective Subjective Date of Service: 09/14/20 Reason For Visit: Psychosis Subjective Notes: [place] Order Interim History: the patient continues disorganized tangential illogical with clanging. Remains irritable less depressed and is less physically aggressive Medication Compliance: Intermittent Side effects from medications: Yes Attending Groups: No Mental Status Exam Mental Status Exam Narrative: because of disorganization lack of cooperation difficult to evaluate cognitively or for hallucinations or delusional material severely thought disordered illogical often hateful and angry difficult to have a goal-directed conversation Patient Appearance: Disheveled Patient Orientation: Person Level of Consciousness: Awake and Restless Patient Behavior: Talkative, Suspicious, Aggressive and Restless Mood Description: Suspicious, Hostile, Labile, Blunted and Angry Patient Cognition Impaired: Yes Ability to Follow Directions: Fair Speech Pattern: Perseverating, Impoverished, Rambling and Includes Profanity Hallucinations: None Diagnostics Vital Signs (24Hr): Vital Signs - 24 hr 09/12/20 21:40 09/13/20 06:15 09/13/20 09:28 Temperature 96.8 F Pulse Rate 96 91 91 Respiratory Rate 22 H Blood Pressure 132/69 138/69 138/69 Pulse Oximetry 97 09/13/20 17:37 09/13/20 20:45 Temperature 97.8 F Pulse Rate 95 95 Respiratory Rate Blood Pressure 152/84 H 152/84 H Pulse Oximetry Body Mass Index 33.8 Labs Results: 09/08/20 09:46 08/26/20 08:11 Medications Medications Current Medications Generic Name Dose Route Start Last Admin Trade Name Freq PRN Reason Stop Dose Admin Acetaminophen 650 mg 08/26/20 10:22 Acetaminophen 325 Mg Tablet PO Q6H PRN Pain, Mild (Pain Scale 1-3) Albuterol Sulfate 2 puff 08/05/20 19:32 09/10/20 06:30 Albuterol Sulfate 90 Mcg 8 Gm Inhaler INHALE 2 puff DAILY PRN Administration asthma Aspirin 81 mg 08/06/20 09:00 09/13/20 09:27 Aspirin 81 Mg Tab.Chew PO 81 mg DAILY OZZY Administration Atorvastatin Calcium 20 mg 08/05/20 21:00 09/13/20 20:45 Atorvastatin Calcium 20 Mg Tablet PO 20 mg BEDTIME OZZY Administration Clonazepam 1 mg 09/11/20 14:07 Clonazepam 1 Mg Tablet PO RQ6H PRN anxiety/restlessness Clonazepam 0.5 mg 09/11/20 15:00 09/13/20 20:44 Clonazepam 0.5 Mg Tablet PO 0.5 mg TID OZZY Administration Clozapine 200 mg 09/06/20 21:00 09/13/20 20:44 Clozapine 100 Mg Tablet PO 200 mg BEDTIME OZZY Administration Clozapine 50 mg 09/06/20 21:00 09/13/20 20:45 Clozapine 25 Mg Tablet PO 50 mg BEDTIME OZZY Administration Divalproex Sodium 1,500 mg 09/07/20 10:15 09/13/20 09:30 Divalproex Sodium Er 250 Mg Tab.Er.24h PO 1,500 mg DAILY OZZY Administration Docusate Sodium 100 mg 08/05/20 21:00 09/13/20 20:44 Docusate Sodium 100 Mg Capsule PO 100 mg BID@0830,2100 OZZY Administration Metoprolol Succinate 37.5 mg 08/05/20 21:00 09/13/20 20:45 Metoprolol Succinate Er 25 Mg Tab.Er.24h PO 37.5 mg BID OZYZ Administration Protocol Olanzapine 10 mg 08/22/20 11:41 09/05/20 12:20 Olanzapine 10 Mg Vial IM 10 mg BID PRN Administration Psychosis Olanzapine 10 mg 09/11/20 14:06 09/13/20 09:31 Olanzapine Odt 10 Mg Tab.Rapdis TRANSLINGU 10 mg RQ6H PRN Administration Psychosis Paliperidone 3 mg 09/07/20 09:00 09/13/20 09:27 Paliperidone Er 3 Mg Tab.Er.24 PO 3 mg DAILY OZZY Administration Paliperidone 6 mg 09/07/20 09:00 09/13/20 09:28 Paliperidone Er 6 Mg Tab.Er.24 PO 6 mg DAILY OZZY Administration Quetiapine Fumarate 100 mg 08/16/20 22:10 09/10/20 19:57 Quetiapine Fumarate 100 Mg Tablet PO 100 mg BEDTIME PRN Administration Insomnia Topiramate 50 mg 08/05/20 21:00 09/13/20 20:44 Topiramate 25 Mg Tablet PO 50 mg BEDTIME OZZY Administration Vitamin D 25 mcg 08/06/20 09:00 09/13/20 09:28 Cholecalciferol (Vitamin D3) 25 Mcg Tablet PO 25 mcg DAILY OZZY Administration Allergies Allergies Allergy/AdvReac Type Severity Reaction Status Date / Time lithium [[place]] Allergy Severe TOXICITY Verified 07/28/20 18:08 thiothixene Allergy Severe SWELLING Verified 08/05/20 07:28 barium sulfate Allergy Intermediate NAUSEA & Verified 08/05/20 07:28 [BARIUM SULFATE] VOMITING haloperidol Allergy Intermediate MUSCLE Verified 07/28/20 18:08 TENSION IN LEGS benztropine Allergy Unknown benztropine Verified 08/05/20 07:28 mesylate- unknown diphenhydramine Allergy Unknown urinary Verified 08/05/20 07:28 [From Benadryl] retention fluphenazine Allergy Unknown UNKNOWN Verified 08/05/20 07:28 gabapentin [From NEURONTIN] Allergy Unknown UNKNOWN Verified 07/28/20 18:08 prolixen Allergy Unknown Unknown Uncoded 07/28/20 16:56 Assessment & Plan Assessment & Plan (1) Hypertension: Status: Acute Code(s): I10 - Essential (primary) hypertension (2) Coronary artery disease: Status: Acute Code(s): I25.10 - Atherosclerotic heart disease of [place] coronary artery without angina pectoris (3) Aggression: Status: Acute Code(s): R46.89 - Other symptoms and signs involving appearance and behavior (4) Schizoaffective disorder: Status: Acute Code(s): F25.9 - Schizoaffective disorder, unspecified Assessment and Plan: recheck Depakote level and EKG. Dilemma is patient's QTC starts going above 500 with combination of antipsychotics. He has not been stable for an extended period of time will also check magnesium and calcium level referral [facility] Greater than 50% of the session was spent on counseling and/or coordination of care
[2020-09-14 05:50] VITALS: BP 127/59; PULSE 95; RESP 18; TEMP 36.4; O2SAT 95
[2020-09-14 08:57] VITALS: BP 127/59; PULSE 95
[2020-09-14] MEDS: Divalproex Sodium ER 250 MG TAB.ER.24H 1500 MG PO (08:57)
[2020-09-14] MEDS: Cholecalciferol (Vitamin D3) 25 MCG TABLET PO (08:57)
[2020-09-14] MEDS: Paliperidone ER 6 MG TAB.ER.24 PO (08:57)
[2020-09-14] MEDS: Metoprolol Succinate ER 25 MG TAB.ER.24H 37.5 MG PO ×2 (08:57→20:46)
[2020-09-14] MEDS: Docusate Sodium 100 MG CAPSULE PO ×2 (08:57→20:46)
[2020-09-14] MEDS: clonazePAM 0.5 MG TABLET PO ×3 (08:57→20:46)
[2020-09-14] MEDS: Aspirin 81 MG TAB.CHEW PO (08:57)
[2020-09-14] MEDS: Paliperidone ER 3 MG TAB.ER.24 PO (08:57)
--- NOTE | 2020-09-14 11:32 | HO.PSYCHPN ---
Subjective Subjective Date of Service: 09/14/20 Reason For Visit: Psychosis Interim History: patient calmer less aggressive remains disorganized Mental Status Exam Mental Status Exam Narrative: because of disorganization lack of cooperation difficult to evaluate cognitively or for hallucinations or delusional material severely thought disordered illogical often hateful and angry difficult to have a goal-directed conversation Patient Appearance: Disheveled Patient Orientation: Person Level of Consciousness: Awake and Restless Patient Behavior: Talkative, Suspicious, Aggressive and Restless Mood Description: Suspicious, Hostile, Labile, Blunted and Angry Patient Cognition Impaired: Yes Ability to Follow Directions: Fair Speech Pattern: Perseverating, Impoverished, Rambling and Includes Profanity Hallucinations: None Diagnostics Vital Signs (24Hr): Vital Signs - 24 hr 09/13/20 17:37 09/13/20 20:45 09/14/20 05:50 Temperature 97.8 F 97.6 F Pulse Rate 95 95 95 Respiratory Rate 18 Blood Pressure 152/84 H 152/84 H 127/59 L Pulse Oximetry 95 09/14/20 08:57 Temperature Pulse Rate 95 Respiratory Rate Blood Pressure 127/59 L Pulse Oximetry Body Mass Index 33.8 Labs Results: 09/08/20 09:46 08/26/20 08:11 Medications Medications Current Medications Generic Name Dose Route Start Last Admin Trade Name Freq PRN Reason Stop Dose Admin Acetaminophen 650 mg 08/26/20 10:22 Acetaminophen 325 Mg Tablet PO Q6H PRN Pain, Mild (Pain Scale 1-3) Albuterol Sulfate 2 puff 08/05/20 19:32 09/10/20 06:30 Albuterol Sulfate 90 Mcg 8 Gm Inhaler INHALE 2 puff DAILY PRN Administration asthma Aspirin 81 mg 08/06/20 09:00 09/14/20 08:57 Aspirin 81 Mg Tab.Chew PO 81 mg DAILY OZZY Administration Atorvastatin Calcium 20 mg 08/05/20 21:00 09/13/20 20:45 Atorvastatin Calcium 20 Mg Tablet PO 20 mg BEDTIME OZZY Administration Clonazepam 1 mg 09/11/20 14:07 Clonazepam 1 Mg Tablet PO RQ6H PRN anxiety/restlessness Clonazepam 0.5 mg 09/11/20 15:00 09/14/20 08:57 Clonazepam 0.5 Mg Tablet PO 0.5 mg TID OZZY Administration Clozapine 200 mg 09/06/20 21:00 09/13/20 20:44 Clozapine 100 Mg Tablet PO 200 mg BEDTIME OZZY Administration Clozapine 50 mg 09/06/20 21:00 09/13/20 20:45 Clozapine 25 Mg Tablet PO 50 mg BEDTIME OZZY Administration Divalproex Sodium 1,500 mg 09/07/20 10:15 09/14/20 08:57 Divalproex Sodium Er 250 Mg Tab.Er.24h PO 1,500 mg DAILY OZZY Administration Docusate Sodium 100 mg 08/05/20 21:00 09/14/20 08:57 Docusate Sodium 100 Mg Capsule PO 100 mg BID@0830,2100 OZZY Administration Metoprolol Succinate 37.5 mg 08/05/20 21:00 09/14/20 08:57 Metoprolol Succinate Er 25 Mg Tab.Er.24h PO 37.5 mg BID OZZY Administration Protocol Olanzapine 10 mg 08/22/20 11:41 09/05/20 12:20 Olanzapine 10 Mg Vial IM 10 mg BID PRN Administration Psychosis Olanzapine 10 mg 09/11/20 14:06 09/13/20 09:31 Olanzapine Odt 10 Mg Tab.Rapdis TRANSLINGU 10 mg RQ6H PRN Administration Psychosis Paliperidone 3 mg 09/07/20 09:00 09/14/20 08:57 Paliperidone Er 3 Mg Tab.Er.24 PO 3 mg DAILY OZZY Administration Paliperidone 6 mg 09/07/20 09:00 09/14/20 08:57 Paliperidone Er 6 Mg Tab.Er.24 PO 6 mg DAILY OZZY Administration Quetiapine Fumarate 100 mg 08/16/20 22:10 09/10/20 19:57 Quetiapine Fumarate 100 Mg Tablet PO 100 mg BEDTIME PRN Administration Insomnia Topiramate 50 mg 08/05/20 21:00 09/13/20 20:44 Topiramate 25 Mg Tablet PO 50 mg BEDTIME OZZY Administration Vitamin D 25 mcg 08/06/20 09:00 09/14/20 08:57 Cholecalciferol (Vitamin D3) 25 Mcg Tablet PO 25 mcg DAILY OZZY Administration Allergies Allergies Allergy/AdvReac Type Severity Reaction Status Date / Time lithium [[place]] Allergy Severe TOXICITY Verified 07/28/20 18:08 thiothixene Allergy Severe SWELLING Verified 08/05/20 07:28 barium sulfate Allergy Intermediate NAUSEA & Verified 08/05/20 07:28 [BARIUM SULFATE] VOMITING haloperidol Allergy Intermediate MUSCLE Verified 07/28/20 18:08 TENSION IN LEGS benztropine Allergy Unknown benztropine Verified 08/05/20 07:28 mesylate- unknown diphenhydramine Allergy Unknown urinary Verified 08/05/20 07:28 [From Benadryl] retention fluphenazine Allergy Unknown UNKNOWN Verified 08/05/20 07:28 gabapentin [From NEURONTIN] Allergy Unknown UNKNOWN Verified 07/28/20 18:08 prolixen Allergy Unknown Unknown Uncoded 07/28/20 16:56 Assessment & Plan Assessment & Plan (1) Schizoaffective disorder: Status: Acute Code(s): F25.9 - Schizoaffective disorder, unspecified (2) Aggression: Status: Acute Code(s): R46.89 - Other symptoms and signs involving appearance and behavior Assessment and Plan: referral to long-term hospitalization Greater than 50% of the session was spent on counseling and/or coordination of care
[2020-09-14] MEDS: Albuterol Sulfate 90 MCG 8 GM INHALER 2 PUFF INHALE (11:43)
[2020-09-14 18:00] VITALS: BP 106/59; PULSE 95; TEMP 36.5
[2020-09-14 20:46] VITALS: BP 185/91; PULSE 94
[2020-09-14] MEDS: cloZAPine 100 MG TABLET 200 MG PO (20:46)
[2020-09-14] MEDS: Topiramate 25 MG TABLET 50 MG PO (20:46)
[2020-09-14] MEDS: cloZAPine 25 MG TABLET 50 MG PO (20:46)
[2020-09-14] MEDS: Atorvastatin Calcium 20 MG TABLET PO (20:46)
[2020-09-15 06:00] VITALS: TEMP 36.4; O2SAT 96
[2020-09-15 08:22] VITALS: BP 119/66; PULSE 63
[2020-09-15] MEDS: Paliperidone ER 3 MG TAB.ER.24 PO (08:22)
[2020-09-15] MEDS: Divalproex Sodium ER 250 MG TAB.ER.24H 1500 MG PO (08:22)
[2020-09-15] MEDS: Docusate Sodium 100 MG CAPSULE PO ×2 (08:22→21:09)
[2020-09-15] MEDS: Metoprolol Succinate ER 25 MG TAB.ER.24H 37.5 MG PO ×2 (08:22→21:09)
[2020-09-15] MEDS: Cholecalciferol (Vitamin D3) 25 MCG TABLET PO (08:23)
[2020-09-15] MEDS: Paliperidone ER 6 MG TAB.ER.24 PO (08:23)
[2020-09-15] MEDS: clonazePAM 0.5 MG TABLET PO ×3 (08:23→21:09)
[2020-09-15] MEDS: Aspirin 81 MG TAB.CHEW PO (08:23)
[2020-09-15] MEDS: Albuterol Sulfate 90 MCG 8 GM INHALER 2 PUFF INHALE (09:52)
[2020-09-15 16:39] VITALS: BP 127/70; PULSE 91; TEMP 36.3
[2020-09-15 21:09] VITALS: BP 127/70; PULSE 91
[2020-09-15] MEDS: cloZAPine 25 MG TABLET 50 MG PO (21:10)
[2020-09-15] MEDS: Topiramate 25 MG TABLET 50 MG PO (21:10)
[2020-09-15] MEDS: Atorvastatin Calcium 20 MG TABLET PO (21:10)
[2020-09-15] MEDS: cloZAPine 100 MG TABLET 200 MG PO (21:10)
--- NOTE | 2020-09-15 21:24 | HO.PSYCHPN ---
Subjective Subjective Date of Service: 09/15/20 Reason For Visit: Psychosis Subjective Notes: Conditional Voluntary Interim History: patient remains irritable easily agitated especially with staff demeaning and hostile but less physically aggressive was able to be taken off of close obsess and placed on 5 minutes checks Medication Compliance: Yes Mental Status Exam Mental Status Exam Narrative: because of disorganization lack of cooperation difficult to evaluate cognitively or for hallucinations or delusional material severely thought disordered illogical often hateful and angry difficult to have a goal-directed conversation Patient Appearance: Disheveled Patient Orientation: Person Level of Consciousness: Awake and Restless Patient Behavior: Talkative, Suspicious, Aggressive and Restless Mood Description: Suspicious, Hostile, Labile, Blunted and Angry Patient Cognition Impaired: Yes Ability to Follow Directions: Fair Speech Pattern: Perseverating, Impoverished, Rambling and Includes Profanity Hallucinations: None Diagnostics Vital Signs (24Hr): Vital Signs - 24 hr 09/15/20 06:00 09/15/20 08:22 09/15/20 16:39 Temperature 97.6 F 97.3 F Pulse Rate 63 91 Blood Pressure 119/66 127/70 Pulse Oximetry 96 09/15/20 21:09 Temperature Pulse Rate 91 Blood Pressure 127/70 Pulse Oximetry Body Mass Index 33.8 Labs Results: 09/08/20 09:46 08/26/20 08:11 Medications Medications Current Medications Generic Name Dose Route Start Last Admin Trade Name Freq PRN Reason Stop Dose Admin Acetaminophen 650 mg 08/26/20 10:22 Acetaminophen 325 Mg Tablet PO Q6H PRN Pain, Mild (Pain Scale 1-3) Albuterol Sulfate 2 puff 08/05/20 19:32 09/15/20 09:52 Albuterol Sulfate 90 Mcg 8 Gm Inhaler INHALE 2 puff DAILY PRN Administration asthma Aspirin 81 mg 08/06/20 09:00 09/15/20 08:23 Aspirin 81 Mg Tab.Chew PO 81 mg DAILY OZZY Administration Atorvastatin Calcium 20 mg 08/05/20 21:00 09/15/20 21:10 Atorvastatin Calcium 20 Mg Tablet PO 20 mg BEDTIME OZZY Administration Clonazepam 1 mg 09/11/20 14:07 Clonazepam 1 Mg Tablet PO RQ6H PRN anxiety/restlessness Clonazepam 0.5 mg 09/11/20 15:00 09/15/20 21:09 Clonazepam 0.5 Mg Tablet PO 0.5 mg TID OZYZ Administration Clozapine 200 mg 09/06/20 21:00 09/15/20 21:10 Clozapine 100 Mg Tablet PO 200 mg BEDTIME OZZY Administration Clozapine 50 mg 09/06/20 21:00 09/15/20 21:10 Clozapine 25 Mg Tablet PO 50 mg BEDTIME OZZY Administration Divalproex Sodium 1,500 mg 09/07/20 10:15 09/15/20 08:22 Divalproex Sodium Er 250 Mg Tab.Er.24h PO 1,500 mg DAILY OZZY Administration Docusate Sodium 100 mg 08/05/20 21:00 09/15/20 21:09 Docusate Sodium 100 Mg Capsule PO 100 mg BID@0830,2100 OZZY Administration Metoprolol Succinate 37.5 mg 08/05/20 21:00 09/15/20 21:09 Metoprolol Succinate Er 25 Mg Tab.Er.24h PO 37.5 mg BID OZZY Administration Protocol Olanzapine 10 mg 08/22/20 11:41 09/05/20 12:20 Olanzapine 10 Mg Vial IM 10 mg BID PRN Administration Psychosis Olanzapine 10 mg 09/11/20 14:06 09/13/20 09:31 Olanzapine Odt 10 Mg Tab.Rapdis TRANSLINGU 10 mg RQ6H PRN Administration Psychosis Paliperidone 3 mg 09/07/20 09:00 09/15/20 08:22 Paliperidone Er 3 Mg Tab.Er.24 PO 3 mg DAILY OZZY Administration Paliperidone 6 mg 09/07/20 09:00 09/15/20 08:23 Paliperidone Er 6 Mg Tab.Er.24 PO 6 mg DAILY OZZY Administration Quetiapine Fumarate 100 mg 08/16/20 22:10 09/10/20 19:57 Quetiapine Fumarate 100 Mg Tablet PO 100 mg BEDTIME PRN Administration Insomnia Topiramate 50 mg 08/05/20 21:00 09/15/20 21:10 Topiramate 25 Mg Tablet PO 50 mg BEDTIME OZZY Administration Vitamin D 25 mcg 08/06/20 09:00 09/15/20 08:23 Cholecalciferol (Vitamin D3) 25 Mcg Tablet PO 25 mcg DAILY OZZY Administration Allergies Allergies Allergy/AdvReac Type Severity Reaction Status Date / Time lithium [[place]] Allergy Severe TOXICITY Verified 07/28/20 18:08 thiothixene Allergy Severe SWELLING Verified 08/05/20 07:28 barium sulfate Allergy Intermediate NAUSEA & Verified 08/05/20 07:28 [BARIUM SULFATE] VOMITING haloperidol Allergy Intermediate MUSCLE Verified 07/28/20 18:08 TENSION IN LEGS benztropine Allergy Unknown benztropine Verified 08/05/20 07:28 mesylate- unknown diphenhydramine Allergy Unknown urinary Verified 08/05/20 07:28 [From Benadryl] retention fluphenazine Allergy Unknown UNKNOWN Verified 08/05/20 07:28 gabapentin [From NEURONTIN] Allergy Unknown UNKNOWN Verified 07/28/20 18:08 prolixen Allergy Unknown Unknown Uncoded 07/28/20 16:56 Assessment & Plan Assessment & Plan (1) Schizoaffective disorder: Status: Acute Code(s): F25.9 - Schizoaffective disorder, unspecified Assessment and Plan: check Depakote level ammonia level EKG hemoglobin A1c (2) Cardiac arrhythmia: Status: Acute Code(s): I49.9 - Cardiac arrhythmia, unspecified (3) Coronary artery disease: Status: Acute Code(s): I25.10 - Atherosclerotic heart disease of [place] coronary artery without angina pectoris (4) Hypertension: Status: Acute Code(s): I10 - Essential (primary) hypertension Greater than 50% of the session was spent on counseling and/or coordination of care
--- NOTE | 2020-09-16 08:00 | ECG_ITS ---
Test Reason : ABN EKG Blood Pressure : / mmHG Vent. Rate : 096 BPM Atrial Rate : 096 BPM P-R Int : 156 ms QRS Dur : 102 ms QT Int : 388 ms P-R-T Axes : 060 046 186 degrees QTc Int : 490 ms Normal sinus rhythm Left ventricular hypertrophy with repolarization abnormality Prolonged QT Abnormal ECG When compared with ECG of 10-SEP-2020 13:40, No significant change was found Referred By: Rocael Pacheco Electronically Signed By:BRYSON MAURO
[2020-09-16 09:02] LABS: MANUAL DIFF FLAG NO
[2020-09-16 09:17] LABS: Basophils Percent Auto 0.7 % (0-2); Eosinophils Absolute Auto 0.1 X10*3/uL (0.0-0.4); Eosinophils Percent Auto 2.3 % (0-4); Hematocrit 40.1 % (42-52); Hemoglobin 12.8 g/dl (14.0-18.0); Imm Gran Abs Auto 0.09 X10*3/uL (0.00-0.03); Imm Gran Pct Auto 1.6 % (0.0-0.4); Lymphocytes Absolute Auto 1.3 X10*3/uL (1.2-4.9); Lymphocytes Percent Auto 23.2 % (20-40); Mean Corpuscular HGB Conc 31.9 g/dl (31.0-36.0); Mean Corpuscular Volume 87.7 fL (80-98); Mean Platelet Volume 12.1 fL (9.4-12.4); Monocytes Absolute Auto 0.7 X10*3/uL (0.1-1.2); Monocytes Percent Auto 12.9 % (2-11); Neutrophils Absolute Auto 3.3 X10*3/uL (2.0-8.3); Neutrophils Percent Auto 59.3 % (45-73); Platelet Count 133 X10*3/uL (160-400); Red Blood Count 4.57 X10*6/uL (4.60-5.80); Red Cell Distribution Width 15.4 % (11.0-16.0); White Blood Count 5.6 X10*3/uL (4.8-10.8)
[2020-09-16 09:59] LABS: Valproate 45.3 mcg/mL (50.0-100.0)
[2020-09-16] MEDS: Divalproex Sodium ER 250 MG TAB.ER.24H 1500 MG PO (10:09)
[2020-09-16] MEDS: Paliperidone ER 3 MG TAB.ER.24 PO (10:09)
[2020-09-16] MEDS: Aspirin 81 MG TAB.CHEW PO (10:09)
[2020-09-16] MEDS: Cholecalciferol (Vitamin D3) 25 MCG TABLET PO (10:10)
[2020-09-16] MEDS: Docusate Sodium 100 MG CAPSULE PO ×2 (10:10→20:34)
[2020-09-16] MEDS: clonazePAM 0.5 MG TABLET PO (10:10)
[2020-09-16] MEDS: Paliperidone ER 6 MG TAB.ER.24 PO (10:10)
[2020-09-16 10:14] VITALS: BP 144/67; PULSE 103
[2020-09-16] MEDS: Metoprolol Succinate ER 25 MG TAB.ER.24H 37.5 MG PO ×2 (10:14→20:30)
[2020-09-16] MEDS: Albuterol Sulfate 90 MCG 8 GM INHALER 2 PUFF INHALE (12:31)
[2020-09-16 16:28] VITALS: BP 132/65; PULSE 90; RESP 18; TEMP 37.1; O2SAT 96
--- NOTE | 2020-09-16 17:05 | P.PNPSI_ITS ---
Subjective Subjective Date of Service: 09/17/20 Reason For Visit: Psychosis Interim History: Pt irritable adversarial with staff but not physically aggressive denies chest pain or sob Medication Compliance: Yes Attending Groups: No Mental Status Exam Mental Status Exam Narrative: because of disorganization lack of cooperation difficult to evaluate cognitively or for hallucinations or delusional material severely thought disordered illogical often hateful and angry difficult to have a goal-directed conversation Patient Appearance: Disheveled Patient Orientation: Person Level of Consciousness: Awake and Restless Patient Behavior: Talkative, Suspicious, Aggressive and Restless Mood Description: Suspicious, Hostile, Labile, Blunted and Angry Patient Cognition Impaired: Yes Ability to Follow Directions: Fair Speech Pattern: Perseverating, Impoverished, Rambling and Includes Profanity Hallucinations: None Thought Process: Incoherent and Rumination Thought Content: positive for Disorganized Diagnostics Vital Signs (24Hr): Vital Signs - 24 hr 09/15/20 21:09 09/16/20 10:14 09/16/20 16:28 Temperature 98.7 F Pulse Rate 91 103 H 90 Respiratory Rate 18 Blood Pressure 127/70 144/67 H 132/65 Pulse Oximetry 96 Body Mass Index 33.8 Labs Results: 09/16/20 08:53 08/26/20 08:11 Labs: Laboratory Results - last 48 hr 09/16/20 09/16/20 08:53 08:53 WBC 5.6 RBC 4.57 L Hgb 12.8 L Hct 40.1 L MCV 87.7 MCH 28.0 MCHC 31.9 RDW 15.4 Plt Count 133 L MPV 12.1 Immature Gran % (Auto) 1.6 H Neut % (Auto) 59.3 Lymph % (Auto) 23.2 [place] % (Auto) 12.9 H Eos % (Auto) 2.3 Baso % (Auto) 0.7 Lymph # (Auto) 1.3 [place] # (Auto) 0.7 Eos # (Auto) 0.1 Baso # (Auto) 0.0 Abs Immat Gran (auto) 0.09 H Absolute Neuts (auto) 3.3 Absolute Nucleated RBC 0.000 Nucleated RBC % (auto) 0.0 Valproic Acid 45.3 L Medications Medications Current Medications Generic Name Dose Route Start Last Admin Trade Name Freq PRN Reason Stop Dose Admin Acetaminophen 650 mg 08/26/20 10:22 Acetaminophen 325 Mg Tablet PO Q6H PRN Pain, Mild (Pain Scale 1-3) Albuterol Sulfate 2 puff 08/05/20 19:32 09/16/20 12:31 Albuterol Sulfate 90 Mcg 8 Gm Inhaler INHALE 2 puff DAILY PRN Administration asthma Aspirin 81 mg 08/06/20 09:00 09/16/20 10:09 Aspirin 81 Mg Tab.Chew PO 81 mg DAILY OZZY Administration Atorvastatin Calcium 20 mg 08/05/20 21:00 09/15/20 21:10 Atorvastatin Calcium 20 Mg Tablet PO 20 mg BEDTIME OZZY Administration Clonazepam 1 mg 09/16/20 14:59 Clonazepam 1 Mg Tablet PO RQ6H PRN anxiety/restlessness Clozapine 200 mg 09/06/20 21:00 09/15/20 21:10 Clozapine 100 Mg Tablet PO 200 mg BEDTIME OZZY Administration Clozapine 50 mg 09/06/20 21:00 09/15/20 21:10 Clozapine 25 Mg Tablet PO 50 mg BEDTIME OZZY Administration Divalproex Sodium 1,500 mg 09/07/20 10:15 09/16/20 10:09 Divalproex Sodium Er 250 Mg Tab.Er.24h PO 1,500 mg DAILY OZZY Administration Docusate Sodium 100 mg 08/05/20 21:00 09/16/20 10:10 Docusate Sodium 100 Mg Capsule PO 100 mg BID@0830,2100 OZZY Administration Metoprolol Succinate 37.5 mg 08/05/20 21:00 09/16/20 10:14 Metoprolol Succinate Er 25 Mg Tab.Er.24h PO 37.5 mg BID OZZY Administration Protocol Olanzapine 10 mg 08/22/20 11:41 09/05/20 12:20 Olanzapine 10 Mg Vial IM 10 mg BID PRN Administration Psychosis Olanzapine 10 mg 09/11/20 14:06 09/13/20 09:31 Olanzapine Odt 10 Mg Tab.Rapdis TRANSLINGU 10 mg RQ6H PRN Administration Psychosis Paliperidone 3 mg 09/07/20 09:00 09/16/20 10:09 Paliperidone Er 3 Mg Tab.Er.24 PO 3 mg DAILY OZZY Administration Paliperidone 6 mg 09/07/20 09:00 09/16/20 10:10 Paliperidone Er 6 Mg Tab.Er.24 PO 6 mg DAILY OZZY Administration Quetiapine Fumarate 100 mg 08/16/20 22:10 09/10/20 19:57 Quetiapine Fumarate 100 Mg Tablet PO 100 mg BEDTIME PRN Administration Insomnia Topiramate 50 mg 08/05/20 21:00 09/15/20 21:10 Topiramate 25 Mg Tablet PO 50 mg BEDTIME OZZY Administration Vitamin D 25 mcg 08/06/20 09:00 09/16/20 10:10 Cholecalciferol (Vitamin D3) 25 Mcg Tablet PO 25 mcg DAILY OZZY Administration Allergies Allergies Allergy/AdvReac Type Severity Reaction Status Date / Time lithium [[place]] Allergy Severe TOXICITY Verified 07/28/20 18:08 thiothixene Allergy Severe SWELLING Verified 08/05/20 07:28 barium sulfate Allergy Intermediate NAUSEA & Verified 08/05/20 07:28 [BARIUM SULFATE] VOMITING haloperidol Allergy Intermediate MUSCLE Verified 07/28/20 18:08 TENSION IN LEGS benztropine Allergy Unknown benztropine Verified 08/05/20 07:28 mesylate- unknown diphenhydramine Allergy Unknown urinary Verified 08/05/20 07:28 [From Benadryl] retention fluphenazine Allergy Unknown UNKNOWN Verified 08/05/20 07:28 gabapentin [From NEURONTIN] Allergy Unknown UNKNOWN Verified 07/28/20 18:08 prolixen Allergy Unknown Unknown Uncoded 07/28/20 16:56 Assessment & Plan Assessment & Plan (1) Hypertension: Status: Acute Code(s): I10 - Essential (primary) hypertension (2) Coronary artery disease: Status: Acute Code(s): I25.10 - Atherosclerotic heart disease of [place] coronary artery without angina pectoris (3) Aggression: Status: Acute Code(s): R46.89 - Other symptoms and signs involving appearance and behavior (4) Schizoaffective disorder: Status: Acute Code(s): F25.9 - Schizoaffective disorder, unspecified Assessment and Plan: cont clozapine depakote invga ekg reviewed Greater than 50% of the session was spent on counseling and/or coordination of care
[2020-09-16 20:30] VITALS: BP 132/65; PULSE 90
[2020-09-16] MEDS: Topiramate 25 MG TABLET 50 MG PO (20:33)
[2020-09-16] MEDS: cloZAPine 25 MG TABLET 50 MG PO (20:33)
[2020-09-16] MEDS: Atorvastatin Calcium 20 MG TABLET PO (20:34)
[2020-09-16] MEDS: cloZAPine 100 MG TABLET 200 MG PO (20:34)
[2020-09-17] MEDS: Cholecalciferol (Vitamin D3) 25 MCG TABLET PO (09:13)
[2020-09-17 09:14] VITALS: BP 114/69; PULSE 91
[2020-09-17] MEDS: Metoprolol Succinate ER 25 MG TAB.ER.24H 37.5 MG PO ×2 (09:14→20:50)
[2020-09-17] MEDS: Aspirin 81 MG TAB.CHEW PO (09:15)
[2020-09-17] MEDS: Paliperidone ER 3 MG TAB.ER.24 PO (09:15)
[2020-09-17] MEDS: Divalproex Sodium ER 250 MG TAB.ER.24H 1500 MG PO (09:15)
[2020-09-17] MEDS: Paliperidone ER 6 MG TAB.ER.24 PO (09:15)
[2020-09-17] MEDS: Docusate Sodium 100 MG CAPSULE PO ×2 (09:15→20:48)
[2020-09-17 09:38] VITALS: BP 114/69; PULSE 91
[2020-09-17 18:00] VITALS: BP 138/66; PULSE 91; TEMP 36.7
[2020-09-17] MEDS: cloZAPine 25 MG TABLET 50 MG PO (20:48)
[2020-09-17] MEDS: Atorvastatin Calcium 20 MG TABLET PO (20:49)
[2020-09-17] MEDS: Topiramate 25 MG TABLET 50 MG PO (20:49)
[2020-09-17] MEDS: cloZAPine 100 MG TABLET 200 MG PO (20:49)
[2020-09-17 20:50] VITALS: BP 122/99; PULSE 99
--- NOTE | 2020-09-17 23:26 | HO.PSYCHPN ---
Subjective Subjective Date of Service: 09/17/20 Reason For Visit: Psychosis Interim History: patient gradually improving less combative less aggressive remains quite thought disordered irritable poor hygiene verbally abusive continues on 5 minutes checks off one-to-one ANC 3.3 Mental Status Exam Mental Status Exam Narrative: because of disorganization lack of cooperation difficult to evaluate cognitively or for hallucinations or delusional material severely thought disordered illogical often hateful and angry difficult to have a goal-directed conversation Patient Appearance: Disheveled Patient Orientation: Person Level of Consciousness: Awake and Restless Patient Behavior: Talkative, Suspicious, Aggressive and Restless Mood Description: Suspicious, Hostile, Labile, Blunted and Angry Patient Cognition Impaired: Yes Ability to Follow Directions: Fair Speech Pattern: Perseverating, Impoverished, Rambling and Includes Profanity Hallucinations: None Thought Process: Incoherent and Rumination Thought Content: positive for Disorganized Judgement: Poor Diagnostics Vital Signs (24Hr): Vital Signs - 24 hr 09/17/20 09:14 09/17/20 09:38 09/17/20 18:00 Temperature 98.0 F Pulse Rate 91 91 91 Blood Pressure 114/69 114/69 138/66 09/17/20 20:50 Temperature Pulse Rate 99 Blood Pressure 122/99 H Body Mass Index 33.8 Labs Results: 09/16/20 08:53 08/26/20 08:11 Labs: Laboratory Results - last 48 hr 09/16/20 09/16/20 08:53 08:53 WBC 5.6 RBC 4.57 L Hgb 12.8 L Hct 40.1 L MCV 87.7 MCH 28.0 MCHC 31.9 RDW 15.4 Plt Count 133 L MPV 12.1 Immature Gran % (Auto) 1.6 H Neut % (Auto) 59.3 Lymph % (Auto) 23.2 [place] % (Auto) 12.9 H Eos % (Auto) 2.3 Baso % (Auto) 0.7 Lymph # (Auto) 1.3 [place] # (Auto) 0.7 Eos # (Auto) 0.1 Baso # (Auto) 0.0 Abs Immat Gran (auto) 0.09 H Absolute Neuts (auto) 3.3 Absolute Nucleated RBC 0.000 Nucleated RBC % (auto) 0.0 Valproic Acid 45.3 L Medications Medications Current Medications Generic Name Dose Route Start Last Admin Trade Name Freq PRN Reason Stop Dose Admin Acetaminophen 650 mg 08/26/20 10:22 Acetaminophen 325 Mg Tablet PO Q6H PRN Pain, Mild (Pain Scale 1-3) Albuterol Sulfate 2 puff 08/05/20 19:32 09/16/20 12:31 Albuterol Sulfate 90 Mcg 8 Gm Inhaler INHALE 2 puff DAILY PRN Administration asthma Aspirin 81 mg 08/06/20 09:00 09/17/20 09:15 Aspirin 81 Mg Tab.Chew PO 81 mg DAILY OZZY Administration Atorvastatin Calcium 20 mg 08/05/20 21:00 09/17/20 20:49 Atorvastatin Calcium 20 Mg Tablet PO 20 mg BEDTIME OZZY Administration Clonazepam 1 mg 09/16/20 14:59 Clonazepam 1 Mg Tablet PO RQ6H PRN anxiety/restlessness Clozapine 200 mg 09/06/20 21:00 09/17/20 20:49 Clozapine 100 Mg Tablet PO 200 mg BEDTIME OZZY Administration Clozapine 50 mg 09/06/20 21:00 09/17/20 20:48 Clozapine 25 Mg Tablet PO 50 mg BEDTIME OZZY Administration Divalproex Sodium 1,500 mg 09/07/20 10:15 09/17/20 09:15 Divalproex Sodium Er 250 Mg Tab.Er.24h PO 1,500 mg DAILY OZZY Administration Docusate Sodium 100 mg 08/05/20 21:00 09/17/20 20:48 Docusate Sodium 100 Mg Capsule PO 100 mg BID@0830,2100 OZZY Administration Metoprolol Succinate 37.5 mg 08/05/20 21:00 09/17/20 20:50 Metoprolol Succinate Er 25 Mg Tab.Er.24h PO 37.5 mg BID OZZY Administration Protocol Olanzapine 10 mg 08/22/20 11:41 09/05/20 12:20 Olanzapine 10 Mg Vial IM 10 mg BID PRN Administration Psychosis Olanzapine 10 mg 09/11/20 14:06 09/13/20 09:31 Olanzapine Odt 10 Mg Tab.Rapdis TRANSLINGU 10 mg RQ6H PRN Administration Psychosis Paliperidone 3 mg 09/07/20 09:00 09/17/20 09:15 Paliperidone Er 3 Mg Tab.Er.24 PO 3 mg DAILY OZZY Administration Paliperidone 6 mg 09/07/20 09:00 09/17/20 09:15 Paliperidone Er 6 Mg Tab.Er.24 PO 6 mg DAILY OZZY Administration Quetiapine Fumarate 100 mg 08/16/20 22:10 09/10/20 19:57 Quetiapine Fumarate 100 Mg Tablet PO 100 mg BEDTIME PRN Administration Insomnia Topiramate 50 mg 08/05/20 21:00 09/17/20 20:49 Topiramate 25 Mg Tablet PO 50 mg BEDTIME OZZY Administration Vitamin D 25 mcg 08/06/20 09:00 09/17/20 09:13 Cholecalciferol (Vitamin D3) 25 Mcg Tablet PO 25 mcg DAILY OZZY Administration Allergies Allergies Allergy/AdvReac Type Severity Reaction Status Date / Time lithium [[place]] Allergy Severe TOXICITY Verified 07/28/20 18:08 thiothixene Allergy Severe SWELLING Verified 08/05/20 07:28 barium sulfate Allergy Intermediate NAUSEA & Verified 08/05/20 07:28 [BARIUM SULFATE] VOMITING haloperidol Allergy Intermediate MUSCLE Verified 07/28/20 18:08 TENSION IN LEGS benztropine Allergy Unknown benztropine Verified 08/05/20 07:28 mesylate- unknown diphenhydramine Allergy Unknown urinary Verified 08/05/20 07:28 [From Benadryl] retention fluphenazine Allergy Unknown UNKNOWN Verified 08/05/20 07:28 gabapentin [From NEURONTIN] Allergy Unknown UNKNOWN Verified 07/28/20 18:08 prolixen Allergy Unknown Unknown Uncoded 07/28/20 16:56 Assessment & Plan Assessment & Plan (1) Hypertension: Status: Acute Code(s): I10 - Essential (primary) hypertension (2) Coronary artery disease: Status: Acute Code(s): I25.10 - Atherosclerotic heart disease of [place] coronary artery without angina pectoris (3) Aggression: Status: Acute Code(s): R46.89 - Other symptoms and signs involving appearance and behavior (4) Schizoaffective disorder: Status: Acute Code(s): F25.9 - Schizoaffective disorder, unspecified Assessment and Plan: continue clozapine Depakote Invega. Less physically aggressive. ANC 3.3. Referral for longer-term care patient less physically aggressive denies chest pain shortness of breath Greater than 50% of the session was spent on counseling and/or coordination of care
[2020-09-18] MEDS: QUEtiapine Fumarate 100 MG TABLET PO (00:36)
[2020-09-18] MEDS: OLANZapine ODT 10 MG TAB.RAPDIS TRANSLINGU (00:37)
[2020-09-18 06:00] VITALS: RESP 14; TEMP 36.4; O2SAT 95
[2020-09-18 09:43] VITALS: BP 130/60; PULSE 82
[2020-09-18] MEDS: Paliperidone ER 3 MG TAB.ER.24 PO (09:43)
[2020-09-18] MEDS: Docusate Sodium 100 MG CAPSULE PO (09:43)
[2020-09-18] MEDS: Metoprolol Succinate ER 25 MG TAB.ER.24H 37.5 MG PO (09:43)
[2020-09-18] MEDS: Aspirin 81 MG TAB.CHEW PO (09:43)
[2020-09-18] MEDS: Divalproex Sodium ER 250 MG TAB.ER.24H 1500 MG PO (09:43)
[2020-09-18] MEDS: Cholecalciferol (Vitamin D3) 25 MCG TABLET PO (09:43)
[2020-09-18] MEDS: Paliperidone ER 6 MG TAB.ER.24 PO (09:43)
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
[2020-09-18 18:00] VITALS: BP 134/68; PULSE 94; TEMP 36.8
[2020-09-18 22:23] VITALS: BP 122/99; PULSE 94
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
[2020-09-19] MEDS: clonazePAM 1 MG TABLET PO (00:21)
[2020-09-19] MEDS: QUEtiapine Fumarate 100 MG TABLET PO (00:21)
[2020-09-19] MEDS: cloZAPine 25 MG TABLET 50 MG PO ×2 (00:24→22:32)
[2020-09-19] MEDS: cloZAPine 100 MG TABLET 200 MG PO ×2 (00:25→22:32)
[2020-09-19] MEDS: Atorvastatin Calcium 20 MG TABLET PO ×2 (00:25→22:32)
[2020-09-19] MEDS: Docusate Sodium 100 MG CAPSULE PO ×2 (00:25→08:43)
[2020-09-19] MEDS: Topiramate 25 MG TABLET 50 MG PO ×2 (00:31→22:31)
[2020-09-19 00:32] VITALS: BP 122/99; PULSE 94
[2020-09-19] MEDS: Metoprolol Succinate ER 25 MG TAB.ER.24H 37.5 MG PO ×3 (00:32→22:32)
[2020-09-19] MEDS: Divalproex Sodium ER 250 MG TAB.ER.24H 1500 MG PO (08:42)
[2020-09-19] MEDS: Aspirin 81 MG TAB.CHEW PO (08:42)
[2020-09-19] MEDS: Paliperidone ER 6 MG TAB.ER.24 PO (08:43)
[2020-09-19] MEDS: Paliperidone ER 3 MG TAB.ER.24 PO (08:43)
[2020-09-19] MEDS: Cholecalciferol (Vitamin D3) 25 MCG TABLET PO (08:43)
--- NOTE | 2020-09-19 09:05 | HO.PSYCHPN ---
Subjective Subjective Date of Service: 09/19/20 Reason For Visit: Psychosis Interim History: Bizarre statements to TW continues on 5 minutes checks off one-to-one . Ct plan Mental Status Exam Mental Status Exam Narrative: because of disorganization lack of cooperation difficult to evaluate cognitively or for hallucinations or delusional material severely thought disordered illogical often hateful and angry difficult to have a goal-directed conversation Patient Appearance: Disheveled Patient Orientation: Person Level of Consciousness: Awake and Restless Patient Behavior: Talkative, Suspicious, Aggressive and Restless Mood Description: Suspicious, Hostile, Labile, Blunted and Angry Affect Description: Angry Patient Cognition Impaired: Yes Ability to Follow Directions: Fair Speech Pattern: Perseverating, Impoverished, Rambling and Includes Profanity Memory Description: Immediate Impaired, Recent Impaired and Working Impaired Diagnostics Vital Signs (24Hr): Vital Signs - 24 hr 09/18/20 09:43 09/18/20 18:00 09/18/20 22:23 Temperature 98.3 F Pulse Rate 82 94 94 Blood Pressure 130/60 134/68 122/99 H 09/19/20 00:32 Temperature Pulse Rate 94 Blood Pressure 122/99 H Body Mass Index 33.8 Labs Results: 09/16/20 08:53 08/26/20 08:11 Medications Medications Current Medications Generic Name Dose Route Start Last Admin Trade Name Felipeq PRN Reason Stop Dose Admin Acetaminophen 650 mg 08/26/20 10:22 Acetaminophen 325 Mg Tablet PO Q6H PRN Pain, Mild (Pain Scale 1-3) Albuterol Sulfate 2 puff 08/05/20 19:32 09/16/20 12:31 Albuterol Sulfate 90 Mcg 8 Gm Inhaler INHALE 2 puff DAILY PRN Administration asthma Aspirin 81 mg 08/06/20 09:00 09/19/20 08:42 Aspirin 81 Mg Tab.Chew PO 81 mg DAILY OZZY Administration Atorvastatin Calcium 20 mg 08/05/20 21:00 09/19/20 00:25 Atorvastatin Calcium 20 Mg Tablet PO 20 mg BEDTIME OZZY Administration Clonazepam 1 mg 09/16/20 14:59 09/19/20 00:21 Clonazepam 1 Mg Tablet PO 1 mg RQ6H PRN Administration anxiety/restlessness Clozapine 200 mg 09/06/20 21:00 09/19/20 00:25 Clozapine 100 Mg Tablet PO 200 mg BEDTIME OZZY Administration Clozapine 50 mg 09/06/20 21:00 09/19/20 00:24 Clozapine 25 Mg Tablet PO 50 mg BEDTIME OZZY Administration Divalproex Sodium 1,500 mg 09/07/20 10:15 09/19/20 08:42 Divalproex Sodium Er 250 Mg Tab.Er.24h PO 1,500 mg DAILY OZZY Administration Docusate Sodium 100 mg 08/05/20 21:00 09/19/20 08:43 Docusate Sodium 100 Mg Capsule PO 100 mg BID@0830,2100 OZZY Administration Metoprolol Succinate 37.5 mg 08/05/20 21:00 09/19/20 08:43 Metoprolol Succinate Er 25 Mg Tab.Er.24h PO 37.5 mg BID OZZY Administration Protocol Olanzapine 10 mg 08/22/20 11:41 09/05/20 12:20 Olanzapine 10 Mg Vial IM 10 mg BID PRN Administration Psychosis Olanzapine 10 mg 09/11/20 14:06 09/18/20 00:37 Olanzapine Odt 10 Mg Tab.Rapdis TRANSLINGU 10 mg RQ6H PRN Administration Psychosis Paliperidone 3 mg 09/07/20 09:00 09/19/20 08:43 Paliperidone Er 3 Mg Tab.Er.24 PO 3 mg DAILY OZZY Administration Paliperidone 6 mg 09/07/20 09:00 09/19/20 08:43 Paliperidone Er 6 Mg Tab.Er.24 PO 6 mg DAILY OZZY Administration Quetiapine Fumarate 100 mg 08/16/20 22:10 09/19/20 00:21 Quetiapine Fumarate 100 Mg Tablet PO 100 mg BEDTIME PRN Administration Insomnia Topiramate 50 mg 08/05/20 21:00 09/19/20 00:31 Topiramate 25 Mg Tablet PO 50 mg BEDTIME OZZY Administration Vitamin D 25 mcg 08/06/20 09:00 09/19/20 08:43 Cholecalciferol (Vitamin D3) 25 Mcg Tablet PO 25 mcg DAILY OZZY Administration Allergies Allergies Allergy/AdvReac Type Severity Reaction Status Date / Time lithium [[place]] Allergy Severe TOXICITY Verified 07/28/20 18:08 thiothixene Allergy Severe SWELLING Verified 08/05/20 07:28 barium sulfate Allergy Intermediate NAUSEA & Verified 08/05/20 07:28 [BARIUM SULFATE] VOMITING haloperidol Allergy Intermediate MUSCLE Verified 07/28/20 18:08 TENSION IN LEGS benztropine Allergy Unknown benztropine Verified 08/05/20 07:28 mesylate- unknown diphenhydramine Allergy Unknown urinary Verified 08/05/20 07:28 [From Benadryl] retention fluphenazine Allergy Unknown UNKNOWN Verified 08/05/20 07:28 gabapentin [From NEURONTIN] Allergy Unknown UNKNOWN Verified 07/28/20 18:08 prolixen Allergy Unknown Unknown Uncoded 07/28/20 16:56 Assessment & Plan Assessment & Plan (1) Hypertension: Status: Acute Code(s): I10 - Essential (primary) hypertension (2) Coronary artery disease: Status: Acute Code(s): I25.10 - Atherosclerotic heart disease of [place] coronary artery without angina pectoris (3) Aggression: Status: Acute Code(s): R46.89 - Other symptoms and signs involving appearance and behavior (4) Schizoaffective disorder: Status: Acute Code(s): F25.9 - Schizoaffective disorder, unspecified Assessment and Plan: continue clozapine Depakote Invega. Less physically aggressive. ANC 3.3. Referral for longer-term care patient less physically aggressive denies chest pain shortness of breath Greater than 50% of the session was spent on counseling and/or coordination of care
[2020-09-19 22:30] VITALS: TEMP 36.8
[2020-09-19 22:32] VITALS: BP 143/66; PULSE 90
[2020-09-20] MEDS: QUEtiapine Fumarate 100 MG TABLET PO (00:39)
[2020-09-20] MEDS: OLANZapine ODT 10 MG TAB.RAPDIS TRANSLINGU (00:39)
[2020-09-20] MEDS: Docusate Sodium 100 MG CAPSULE PO ×2 (09:33→21:40)
[2020-09-20] MEDS: Cholecalciferol (Vitamin D3) 25 MCG TABLET PO (09:33)
[2020-09-20] MEDS: Divalproex Sodium ER 250 MG TAB.ER.24H 1500 MG PO (09:34)
[2020-09-20] MEDS: Paliperidone ER 6 MG TAB.ER.24 PO (09:35)
[2020-09-20] MEDS: Paliperidone ER 3 MG TAB.ER.24 PO (09:35)
[2020-09-20 09:36] VITALS: BP 123/68; PULSE 97
[2020-09-20] MEDS: Metoprolol Succinate ER 25 MG TAB.ER.24H 37.5 MG PO ×2 (09:36→21:38)
[2020-09-20] MEDS: Aspirin 81 MG TAB.CHEW PO (09:36)
[2020-09-20 09:43] VITALS: BP 123/68; PULSE 97; TEMP 36.7; O2SAT 94
[2020-09-20 17:05] LABS: Glucose, Whole Blood 143 mg/dL (60-115)
[2020-09-20 21:25] VITALS: BP 132/61; PULSE 94; TEMP 37
[2020-09-20 21:38] VITALS: BP 132/61; PULSE 94
[2020-09-20] MEDS: cloZAPine 100 MG TABLET 200 MG PO (21:38)
[2020-09-20] MEDS: cloZAPine 25 MG TABLET 50 MG PO (21:38)
[2020-09-20] MEDS: Atorvastatin Calcium 20 MG TABLET PO (21:40)
[2020-09-20] MEDS: Topiramate 25 MG TABLET 50 MG PO (21:40)
--- NOTE | 2020-09-20 22:26 | HO.PSYCHPN ---
Subjective Subjective Date of Service: 09/20/20 Reason For Visit: Psychosis Subjective Notes: Haines Order Interim History: patient irritable blunted less aggressive than previously appears to be aware that he can no longer go back to his apartment he is on a waiting list for a longer term hospitalization Medication Compliance: Yes Side effects from medications: Yes Attending Groups: No Mental Status Exam Mental Status Exam Narrative: because of disorganization lack of cooperation difficult to evaluate cognitively or for hallucinations or delusional material severely thought disordered illogical often hateful and angry difficult to have a goal-directed conversation Patient Appearance: Disheveled Patient Orientation: Person Level of Consciousness: Awake and Restless Patient Behavior: Talkative, Suspicious, Aggressive and Restless Mood Description: Suspicious, Hostile, Labile, Blunted and Angry Affect Description: Angry Patient Cognition Impaired: Yes Ability to Follow Directions: Fair Speech Pattern: Perseverating, Impoverished, Rambling and Includes Profanity Memory Description: Immediate Impaired, Recent Impaired and Working Impaired Diagnostics Vital Signs (24Hr): Vital Signs - 24 hr 09/19/20 22:30 09/19/20 22:32 09/20/20 09:36 Temperature 98.3 F Pulse Rate 90 97 Blood Pressure 143/66 H 123/68 Pulse Oximetry 09/20/20 09:43 09/20/20 21:38 Temperature 98.0 F Pulse Rate 97 94 Blood Pressure 123/68 132/61 Pulse Oximetry 94 Body Mass Index 33.8 Labs Results: 09/16/20 08:53 08/26/20 08:11 Labs: Laboratory Results - last 48 hr 09/20/20 17:00 POC Glucose 143 H Medications Medications Current Medications Generic Name Dose Route Start Last Admin Trade Name [place] PRN Reason Stop Dose Admin Acetaminophen 650 mg 08/26/20 10:22 Acetaminophen 325 Mg Tablet PO Q6H PRN Pain, Mild (Pain Scale 1-3) Albuterol Sulfate 2 puff 08/05/20 19:32 09/16/20 12:31 Albuterol Sulfate 90 Mcg 8 Gm Inhaler INHALE 2 puff DAILY PRN Administration asthma Aspirin 81 mg 08/06/20 09:00 09/20/20 09:36 Aspirin 81 Mg Tab.Chew PO 81 mg DAILY OZZY Administration Atorvastatin Calcium 20 mg 08/05/20 21:00 09/20/20 21:40 Atorvastatin Calcium 20 Mg Tablet PO 20 mg BEDTIME OZZY Administration Clonazepam 1 mg 12/10/20 14:59 09/19/20 00:21 Clonazepam 1 Mg Tablet PO 1 mg RQ6H PRN Administration anxiety/restlessness Clozapine 200 mg 09/06/20 21:00 09/20/20 21:38 Clozapine 100 Mg Tablet PO 200 mg BEDTIME OZZY Administration Clozapine 50 mg 09/06/20 21:00 09/20/20 21:38 Clozapine 25 Mg Tablet PO 50 mg BEDTIME OZZY Administration Divalproex Sodium 1,500 mg 09/07/20 10:15 09/20/20 09:34 Divalproex Sodium Er 250 Mg Tab.Er.24h PO 1,500 mg DAILY OZZY Administration Docusate Sodium 100 mg 08/05/20 21:00 09/20/20 21:40 Docusate Sodium 100 Mg Capsule PO 100 mg BID@0830,2100 OZZY Administration Metoprolol Succinate 37.5 mg 08/05/20 21:00 09/20/20 21:38 Metoprolol Succinate Er 25 Mg Tab.Er.24h PO 37.5 mg BID OZZY Administration Protocol Olanzapine 10 mg 08/22/20 11:41 09/05/20 12:20 Olanzapine 10 Mg Vial IM 10 mg BID PRN Administration Psychosis Olanzapine 10 mg 09/11/20 14:06 09/20/20 00:39 Olanzapine Odt 10 Mg Tab.Rapdis TRANSLINGU 10 mg RQ6H PRN Administration Psychosis Paliperidone 3 mg 09/07/20 09:00 09/20/20 09:35 Paliperidone Er 3 Mg Tab.Er.24 PO 3 mg DAILY OZZY Administration Paliperidone 6 mg 09/07/20 09:00 09/20/20 09:35 Paliperidone Er 6 Mg Tab.Er.24 PO 6 mg DAILY OZZY Administration Quetiapine Fumarate 100 mg 08/16/20 22:10 09/20/20 00:39 Quetiapine Fumarate 100 Mg Tablet PO 100 mg BEDTIME PRN Administration Insomnia Topiramate 50 mg 08/05/20 21:00 09/20/20 21:40 Topiramate 25 Mg Tablet PO 50 mg BEDTIME OZZY Administration Vitamin D 25 mcg 08/06/20 09:00 09/20/20 09:33 Cholecalciferol (Vitamin D3) 25 Mcg Tablet PO 25 mcg DAILY OZZY Administration Allergies Allergies Allergy/AdvReac Type Severity Reaction Status Date / Time lithium [[place]] Allergy Severe TOXICITY Verified 07/28/20 18:08 thiothixene Allergy Severe SWELLING Verified 08/05/20 07:28 barium sulfate Allergy Intermediate NAUSEA & Verified 08/05/20 07:28 [BARIUM SULFATE] VOMITING haloperidol Allergy Intermediate MUSCLE Verified 07/28/20 18:08 TENSION IN LEGS benztropine Allergy Unknown benztropine Verified 08/05/20 07:28 mesylate- unknown diphenhydramine Allergy Unknown urinary Verified 08/05/20 07:28 [From Benadryl] retention fluphenazine Allergy Unknown UNKNOWN Verified 08/05/20 07:28 gabapentin [From NEURONTIN] Allergy Unknown UNKNOWN Verified 07/28/20 18:08 prolixen Allergy Unknown Unknown Uncoded 07/28/20 16:56 Assessment & Plan Assessment & Plan (1) Hypertension: Status: Acute Code(s): I10 - Essential (primary) hypertension Assessment and Plan: (2) Aggression: Status: Acute Code(s): R46.89 - Other symptoms and signs involving appearance and behavior (3) Schizoaffective disorder: Status: Acute Code(s): F25.9 - Schizoaffective disorder, unspecified Assessment and Plan: continue treatment plan referral for longer-term care Greater than 50% of the session was spent on counseling and/or coordination of care
[2020-09-21 06:15] VITALS: RESP 18
[2020-09-21] MEDS: Divalproex Sodium ER 250 MG TAB.ER.24H 1500 MG PO (08:47)
[2020-09-21 08:48] VITALS: BP 135/68; PULSE 84
[2020-09-21] MEDS: Metoprolol Succinate ER 25 MG TAB.ER.24H 37.5 MG PO ×2 (08:48→20:37)
[2020-09-21] MEDS: Cholecalciferol (Vitamin D3) 25 MCG TABLET PO (08:50)
[2020-09-21] MEDS: Aspirin 81 MG TAB.CHEW PO (08:50)
[2020-09-21] MEDS: Docusate Sodium 100 MG CAPSULE PO (08:50)
[2020-09-21] MEDS: Paliperidone ER 6 MG TAB.ER.24 PO (08:51)
[2020-09-21] MEDS: Paliperidone ER 3 MG TAB.ER.24 PO (08:51)
[2020-09-21 08:54] VITALS: BP 135/68; PULSE 84; TEMP 37.1; O2SAT 93
[2020-09-21 08:56] LABS: Glucose, Whole Blood 111 mg/dL (60-115)
[2020-09-21 18:00] VITALS: BP 132/67; PULSE 99; TEMP 36.6
[2020-09-21] MEDS: cloZAPine 25 MG TABLET 50 MG PO (20:36)
[2020-09-21] MEDS: Atorvastatin Calcium 20 MG TABLET PO (20:36)
[2020-09-21 20:37] VITALS: BP 132/67; PULSE 99
[2020-09-21] MEDS: cloZAPine 100 MG TABLET 200 MG PO (20:37)
[2020-09-21] MEDS: Topiramate 25 MG TABLET 50 MG PO (20:37)
[2020-09-21 21:04] LABS: Glucose, Whole Blood 196 mg/dL (60-115)
[2020-09-22] MEDS: Paliperidone ER 3 MG TAB.ER.24 PO (09:13)
[2020-09-22] MEDS: Docusate Sodium 100 MG CAPSULE PO (09:14)
[2020-09-22] MEDS: Paliperidone ER 6 MG TAB.ER.24 PO (09:14)
[2020-09-22 09:21] LABS: Glucose, Whole Blood 173 mg/dL (60-115)
[2020-09-22] MEDS: Aspirin 81 MG TAB.CHEW PO (09:23)
[2020-09-22] MEDS: Divalproex Sodium ER 250 MG TAB.ER.24H 1500 MG PO (09:23)
[2020-09-22 09:24] VITALS: BP 123/67; PULSE 89
[2020-09-22] MEDS: Cholecalciferol (Vitamin D3) 25 MCG TABLET PO (09:24)
[2020-09-22] MEDS: Metoprolol Succinate ER 25 MG TAB.ER.24H 37.5 MG PO ×2 (09:24→20:33)
[2020-09-22 09:30] VITALS: BP 123/67; PULSE 89; O2SAT 96
[2020-09-22] MEDS: OLANZapine 10 MG VIAL IM (10:15)
[2020-09-22] MEDS: OLANZapine ODT 10 MG TAB.RAPDIS TRANSLINGU (15:05)
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
[2020-09-22 18:00] VITALS: BP 108/73; PULSE 105; TEMP 36.7; O2SAT 95
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
[2020-09-22 20:32] LABS: Glucose, Whole Blood 187 mg/dL (60-115)
[2020-09-22 20:33] VITALS: BP 108/73; PULSE 105
[2020-09-22] MEDS: Atorvastatin Calcium 20 MG TABLET PO (20:34)
[2020-09-22] MEDS: Topiramate 25 MG TABLET 50 MG PO (20:34)
[2020-09-22] MEDS: cloZAPine 25 MG TABLET 50 MG PO (20:34)
[2020-09-22] MEDS: cloZAPine 100 MG TABLET 200 MG PO (20:35)
[2020-09-23] MEDS: Paliperidone ER 6 MG TAB.ER.24 PO (09:23)
[2020-09-23] MEDS: Divalproex Sodium ER 250 MG TAB.ER.24H 1500 MG PO (09:23)
[2020-09-23] MEDS: Aspirin 81 MG TAB.CHEW PO (09:23)
[2020-09-23] MEDS: Cholecalciferol (Vitamin D3) 25 MCG TABLET PO (09:24)
[2020-09-23] MEDS: Docusate Sodium 100 MG CAPSULE PO ×2 (09:24→21:43)
[2020-09-23] MEDS: Paliperidone ER 3 MG TAB.ER.24 PO (09:24)
[2020-09-23 09:29] VITALS: BP 121/62; PULSE 98
[2020-09-23] MEDS: Metoprolol Succinate ER 25 MG TAB.ER.24H 37.5 MG PO ×2 (09:29→21:45)
[2020-09-23] MEDS: OLANZapine ODT 10 MG TAB.RAPDIS TRANSLINGU (14:50)
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
[2020-09-23] MEDS: Topiramate 25 MG TABLET 50 MG PO (21:44)
[2020-09-23] MEDS: Atorvastatin Calcium 20 MG TABLET PO (21:44)
[2020-09-23] MEDS: cloZAPine 25 MG TABLET 50 MG PO (21:44)
[2020-09-23] MEDS: cloZAPine 100 MG TABLET 200 MG PO (21:44)
[2020-09-23 21:45] VITALS: BP 145/82; PULSE 95
[2020-09-23 21:53] VITALS: BP 145/82; PULSE 95; TEMP 36.9
[2020-09-23 23:17] LABS: Glucose, Whole Blood 178 mg/dL (60-115)
[2020-09-24 08:53] VITALS: BP 125/71; PULSE 96
[2020-09-24] MEDS: Metoprolol Succinate ER 25 MG TAB.ER.24H 37.5 MG PO ×2 (08:53→20:37)
[2020-09-24] MEDS: Aspirin 81 MG TAB.CHEW PO (08:53)
[2020-09-24] MEDS: Paliperidone ER 3 MG TAB.ER.24 PO (08:53)
[2020-09-24] MEDS: Docusate Sodium 100 MG CAPSULE PO ×2 (08:53→20:36)
[2020-09-24] MEDS: Paliperidone ER 6 MG TAB.ER.24 PO (08:53)
[2020-09-24] MEDS: Cholecalciferol (Vitamin D3) 25 MCG TABLET PO (08:53)
[2020-09-24] MEDS: Divalproex Sodium ER 250 MG TAB.ER.24H 1500 MG PO (08:55)
[2020-09-24 10:48] VITALS: BP 125/71; PULSE 96; TEMP 36.2; O2SAT 94
[2020-09-24 16:26] LABS: Glucose, Whole Blood 183 mg/dL (60-115)
[2020-09-24 18:00] VITALS: BP 133/82; PULSE 82; TEMP 36.5
[2020-09-24] MEDS: Topiramate 25 MG TABLET 50 MG PO (20:35)
[2020-09-24] MEDS: Atorvastatin Calcium 20 MG TABLET PO (20:35)
[2020-09-24] MEDS: cloZAPine 100 MG TABLET 200 MG PO (20:36)
[2020-09-24] MEDS: cloZAPine 25 MG TABLET 50 MG PO (20:36)
[2020-09-24 20:37] VITALS: BP 133/82; PULSE 82
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
[2020-09-25 06:00] VITALS: BP 117/70; PULSE 87
[2020-09-25 09:03] VITALS: BP 117/70; PULSE 87
[2020-09-25] MEDS: Divalproex Sodium ER 250 MG TAB.ER.24H 1500 MG PO (09:03)
[2020-09-25] MEDS: Paliperidone ER 3 MG TAB.ER.24 PO (09:03)
[2020-09-25] MEDS: Cholecalciferol (Vitamin D3) 25 MCG TABLET PO (09:03)
[2020-09-25] MEDS: Docusate Sodium 100 MG CAPSULE PO ×2 (09:03→20:26)
[2020-09-25] MEDS: Metoprolol Succinate ER 25 MG TAB.ER.24H 37.5 MG PO ×2 (09:03→20:26)
[2020-09-25] MEDS: Paliperidone ER 6 MG TAB.ER.24 PO (09:03)
[2020-09-25] MEDS: Aspirin 81 MG TAB.CHEW PO (09:07)
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
[2020-09-25 18:00] VITALS: BP 122/70; PULSE 97; TEMP 36.3
[2020-09-25 20:26] VITALS: BP 122/70; PULSE 97
[2020-09-25] MEDS: cloZAPine 100 MG TABLET 200 MG PO (20:27)
[2020-09-25] MEDS: Topiramate 25 MG TABLET 50 MG PO (20:27)
[2020-09-25] MEDS: Atorvastatin Calcium 20 MG TABLET PO (20:27)
[2020-09-25] MEDS: cloZAPine 25 MG TABLET 75 MG PO (20:28)
[2020-09-25 21:36] LABS: Glucose, Whole Blood 209 mg/dL (60-115)
--- NOTE | 2020-09-26 05:40 | PC.NURSE ---
0540:TW ASKED PT IF HIS BLOOD SUGAR COULD BE TESTED. PT REFUSED
[2020-09-26 07:54] VITALS: BP 115/72; PULSE 92
[2020-09-26] MEDS: Paliperidone ER 6 MG TAB.ER.24 PO (07:54)
[2020-09-26] MEDS: Paliperidone ER 3 MG TAB.ER.24 PO (07:54)
[2020-09-26] MEDS: Metoprolol Succinate ER 25 MG TAB.ER.24H 37.5 MG PO ×2 (07:54→19:48)
[2020-09-26] MEDS: Cholecalciferol (Vitamin D3) 25 MCG TABLET PO (07:54)
[2020-09-26] MEDS: Aspirin 81 MG TAB.CHEW PO (07:55)
[2020-09-26] MEDS: Divalproex Sodium ER 250 MG TAB.ER.24H 1500 MG PO (07:55)
[2020-09-26] MEDS: Docusate Sodium 100 MG CAPSULE PO ×2 (07:55→19:48)
[2020-09-26 09:41] VITALS: BP 115/72; PULSE 92; TEMP 36.9; O2SAT 94
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
[2020-09-26 18:00] VITALS: BP 131/69; PULSE 85; TEMP 36.3
[2020-09-26] MEDS: Atorvastatin Calcium 20 MG TABLET PO (19:47)
[2020-09-26 19:48] VITALS: BP 131/69; PULSE 85
[2020-09-26] MEDS: cloZAPine 100 MG TABLET 200 MG PO (19:48)
[2020-09-26] MEDS: cloZAPine 25 MG TABLET 75 MG PO (19:49)
[2020-09-26] MEDS: Topiramate 25 MG TABLET 50 MG PO (19:50)
[2020-09-26 21:51] LABS: Glucose, Whole Blood 208 mg/dL (60-115)
[2020-09-27 08:10] VITALS: BP 126/85; PULSE 94; TEMP 36.7
[2020-09-27] MEDS: Paliperidone ER 3 MG TAB.ER.24 PO (09:04)
[2020-09-27] MEDS: Paliperidone ER 6 MG TAB.ER.24 PO (09:04)
[2020-09-27] MEDS: Cholecalciferol (Vitamin D3) 25 MCG TABLET PO (09:05)
[2020-09-27] MEDS: Docusate Sodium 100 MG CAPSULE PO ×2 (09:05→22:25)
[2020-09-27] MEDS: Aspirin 81 MG TAB.CHEW PO (09:05)
[2020-09-27] MEDS: Divalproex Sodium ER 250 MG TAB.ER.24H 1500 MG PO (09:05)
[2020-09-27 09:07] VITALS: BP 126/83; PULSE 99
[2020-09-27] MEDS: Metoprolol Succinate ER 25 MG TAB.ER.24H 37.5 MG PO ×2 (09:07→22:26)
[2020-09-27 13:46] LABS: Glucose, Whole Blood 169 mg/dL (60-115)
[2020-09-27 16:58] LABS: Glucose, Whole Blood 149 mg/dL (60-115)
[2020-09-27 22:15] VITALS: BP 165/91; PULSE 83; TEMP 36.2
[2020-09-27] MEDS: Atorvastatin Calcium 20 MG TABLET PO (22:24)
[2020-09-27] MEDS: Topiramate 25 MG TABLET 50 MG PO (22:24)
[2020-09-27] MEDS: cloZAPine 25 MG TABLET 75 MG PO (22:25)
[2020-09-27] MEDS: cloZAPine 100 MG TABLET 200 MG PO (22:25)
[2020-09-27 22:26] VITALS: BP 164/91; PULSE 83
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
[2020-09-28 08:42] VITALS: BP 121/75; PULSE 91
[2020-09-28] MEDS: Docusate Sodium 100 MG CAPSULE PO ×2 (08:42→21:37)
[2020-09-28] MEDS: Cholecalciferol (Vitamin D3) 25 MCG TABLET PO (08:42)
[2020-09-28] MEDS: Paliperidone ER 3 MG TAB.ER.24 PO (08:42)
[2020-09-28] MEDS: Paliperidone ER 6 MG TAB.ER.24 PO (08:42)
[2020-09-28] MEDS: Metoprolol Succinate ER 25 MG TAB.ER.24H 37.5 MG PO ×2 (08:42→21:38)
[2020-09-28] MEDS: Divalproex Sodium ER 250 MG TAB.ER.24H 1500 MG PO (08:42)
[2020-09-28] MEDS: Aspirin 81 MG TAB.CHEW PO (08:42)
[2020-09-28 08:46] VITALS: BP 121/75; PULSE 91; TEMP 36.4; O2SAT 95
[2020-09-28 17:16] LABS: Glucose, Whole Blood 120 mg/dL (60-115)
--- NOTE | 2020-09-28 21:10 | HO.PSYCHPN ---
Subjective Subjective Date of Service: 09/28/20 Reason For Visit: Psychosis Subjective Notes: Haines Order Interim History: Patient irritable agitated hostile and reactive on waiting list for longer-term hospitalization Medication Compliance: Intermittent Mental Status Exam Mental Status Exam Patient Appearance: Disheveled, Inappropriate and Unkempt Patient Orientation: Person Level of Consciousness: Awake and Restless Patient Behavior: Suspicious, Aggressive, Restless and Poor Eye Contact Mood Description: Suspicious, Hostile, Labile, Blunted and Angry Affect Description: Angry Patient Cognition Impaired: Yes Ability to Follow Directions: Fair Speech Pattern: Perseverating, Impoverished, Rambling and Includes Profanity Memory Description: Immediate Impaired, Recent Impaired and Working Impaired Thought Process: Incoherent, Illogical and Distracted Thought Content: positive for Loose Associations Judgement: Fair Judgement and Insight: poor impulse control Diagnostics Vital Signs (24Hr): Vital Signs - 24 hr 09/27/20 22:15 09/27/20 22:26 09/28/20 08:42 Temperature 97.1 F Pulse Rate 83 83 91 Blood Pressure 165/91 H 164/91 H 121/75 Pulse Oximetry 09/28/20 08:46 Temperature 97.6 F Pulse Rate 91 Blood Pressure 121/75 Pulse Oximetry 95 Body Mass Index 33.8 Labs Results: 09/16/20 08:53 08/26/20 08:11 Labs: Laboratory Results - last 48 hr 09/26/20 09/27/20 09/27/20 21:45 13:40 16:51 POC Glucose 208 H 169 H 149 H 09/28/20 16:54 POC Glucose 120 H Medications Medications Current Medications Generic Name Dose Route Start Last Admin Trade Name Felipeq PRN Reason Stop Dose Admin Acetaminophen 650 mg 08/26/20 10:22 Acetaminophen 325 Mg Tablet PO Q6H PRN Pain, Mild (Pain Scale 1-3) Albuterol Sulfate 2 puff 08/05/20 19:32 09/16/20 12:31 Albuterol Sulfate 90 Mcg 8 Gm Inhaler INHALE 2 puff DAILY PRN Administration asthma Aspirin 81 mg 08/06/20 09:00 09/28/20 08:42 Aspirin 81 Mg Tab.Chew PO 81 mg DAILY OZZY Administration Atorvastatin Calcium 20 mg 08/05/20 21:00 09/27/20 22:24 Atorvastatin Calcium 20 Mg Tablet PO 20 mg BEDTIME OZZY Administration Clozapine 200 mg 09/06/20 21:00 09/27/20 22:25 Clozapine 100 Mg Tablet PO 200 mg BEDTIME OZZY Administration Clozapine 75 mg 09/25/20 21:00 09/27/20 22:25 Clozapine 25 Mg Tablet PO 75 mg BEDTIME OZZY Administration Divalproex Sodium 1,500 mg 09/07/20 10:15 09/28/20 08:42 Divalproex Sodium Er 250 Mg Tab.Er.24h PO 1,500 mg DAILY OZZY Administration Docusate Sodium 100 mg 08/05/20 21:00 09/28/20 08:42 Docusate Sodium 100 Mg Capsule PO 100 mg BID@0830,2100 OZZY Administration Metoprolol Succinate 37.5 mg 08/05/20 21:00 09/28/20 08:42 Metoprolol Succinate Er 25 Mg Tab.Er.24h PO 37.5 mg BID OZZY Administration Protocol Olanzapine 10 mg 08/22/20 11:41 09/22/20 10:15 Olanzapine 10 Mg Vial IM 10 mg BID PRN Administration Psychosis Olanzapine 10 mg 09/11/20 14:06 09/23/20 14:50 Olanzapine Odt 10 Mg Tab.Rapdis TRANSLINGU 10 mg RQ6H PRN Administration Psychosis Paliperidone 3 mg 09/07/20 09:00 09/28/20 08:42 Paliperidone Er 3 Mg Tab.Er.24 PO 3 mg DAILY OZZY Administration Paliperidone 6 mg 09/07/20 09:00 09/28/20 08:42 Paliperidone Er 6 Mg Tab.Er.24 PO 6 mg DAILY OZZY Administration Quetiapine Fumarate 100 mg 08/16/20 22:10 09/20/20 00:39 Quetiapine Fumarate 100 Mg Tablet PO 100 mg BEDTIME PRN Administration Insomnia Topiramate 50 mg 08/05/20 21:00 09/27/20 22:24 Topiramate 25 Mg Tablet PO 50 mg BEDTIME OZZY Administration Vitamin D 25 mcg 08/06/20 09:00 09/28/20 08:42 Cholecalciferol (Vitamin D3) 25 Mcg Tablet PO 25 mcg DAILY OZZY Administration Allergies Allergies Allergy/AdvReac Type Severity Reaction Status Date / Time lithium [[place]] Allergy Severe TOXICITY Verified 07/28/20 18:08 thiothixene Allergy Severe SWELLING Verified 08/05/20 07:28 barium sulfate Allergy Intermediate NAUSEA & Verified 08/05/20 07:28 [BARIUM SULFATE] VOMITING haloperidol Allergy Intermediate MUSCLE Verified 07/28/20 18:08 TENSION IN LEGS benztropine Allergy Unknown benztropine Verified 08/05/20 07:28 mesylate- unknown diphenhydramine Allergy Unknown urinary Verified 08/05/20 07:28 [From Benadryl] retention fluphenazine Allergy Unknown UNKNOWN Verified 08/05/20 07:28 gabapentin [From NEURONTIN] Allergy Unknown UNKNOWN Verified 07/28/20 18:08 prolixen Allergy Unknown Unknown Uncoded 07/28/20 16:56 Assessment & Plan Assessment & Plan (1) Aggression: Status: Acute Code(s): R46.89 - Other symptoms and signs involving appearance and behavior (2) Schizoaffective disorder: Status: Acute Code(s): F25.9 - Schizoaffective disorder, unspecified (3) Cardiac arrhythmia: Status: Acute Code(s): I49.9 - Cardiac arrhythmia, unspecified Assessment and Plan: will increase clozapine lower Invega monitor EKG encourage metformin Greater than 50% of the session was spent on counseling and/or coordination of care Reason for contiued inpatient stay Substantial Risk for: harm to others and rapid decompensation
[2020-09-28 21:35] VITALS: BP 114/94; PULSE 83; TEMP 36.6
[2020-09-28] MEDS: Topiramate 25 MG TABLET 50 MG PO (21:37)
[2020-09-28 21:38] VITALS: BP 114/94; PULSE 83
[2020-09-28] MEDS: cloZAPine 25 MG TABLET 75 MG PO (21:38)
[2020-09-28] MEDS: cloZAPine 100 MG TABLET 200 MG PO (21:38)
[2020-09-28] MEDS: Atorvastatin Calcium 20 MG TABLET PO (21:40)
[2020-09-29 06:00] VITALS: BP 131/83; PULSE 92; TEMP 36.6; O2SAT 93
[2020-09-29] MEDS: Topiramate 25 MG TABLET 50 MG PO (08:00)
[2020-09-29] MEDS: Divalproex Sodium ER 250 MG TAB.ER.24H 1500 MG PO (08:47)
[2020-09-29 08:48] VITALS: BP 131/83; PULSE 92
[2020-09-29] MEDS: Cholecalciferol (Vitamin D3) 25 MCG TABLET PO (08:48)
[2020-09-29] MEDS: Metoprolol Succinate ER 25 MG TAB.ER.24H 37.5 MG PO ×2 (08:48→20:16)
[2020-09-29] MEDS: Paliperidone ER 6 MG TAB.ER.24 PO (08:48)
[2020-09-29] MEDS: Docusate Sodium 100 MG CAPSULE PO ×2 (08:49→20:17)
[2020-09-29] MEDS: Aspirin 81 MG TAB.CHEW PO (08:49)
[2020-09-29] MEDS: Paliperidone ER 3 MG TAB.ER.24 PO (08:49)
[2020-09-29 16:37] LABS: Glucose, Whole Blood 138 mg/dL (60-115)
[2020-09-29 18:00] VITALS: BP 129/72; PULSE 92; TEMP 35.5
[2020-09-29] MEDS: cloZAPine 25 MG TABLET 75 MG PO (20:14)
[2020-09-29] MEDS: cloZAPine 100 MG TABLET 200 MG PO (20:15)
[2020-09-29 20:16] VITALS: BP 129/72; PULSE 92
[2020-09-29] MEDS: Atorvastatin Calcium 20 MG TABLET PO (20:17)
--- NOTE | 2020-09-29 23:35 | HO.PSYCHPN ---
Subjective Subjective Date of Service: 09/29/20 Reason For Visit: Psychosis Interim History: patient irritable dysphoric limited interaction with others isolated Medication Compliance: Yes Mental Status Exam Mental Status Exam Patient Appearance: Disheveled, Inappropriate and Unkempt Patient Orientation: Person Level of Consciousness: Awake and Restless Patient Behavior: Suspicious, Aggressive, Restless and Poor Eye Contact Mood Description: Suspicious, Hostile, Labile, Blunted and Angry Affect Description: Angry Patient Cognition Impaired: Yes Ability to Follow Directions: Fair Speech Pattern: Perseverating, Impoverished, Rambling and Includes Profanity Memory Description: Immediate Impaired, Recent Impaired and Working Impaired Thought Process: Incoherent, Illogical and Distracted Thought Content: positive for Loose Associations Judgement: Fair Judgement and Insight: poor impulse control Diagnostics Vital Signs (24Hr): Vital Signs - 24 hr 09/29/20 06:00 09/29/20 08:48 09/29/20 18:00 Temperature 97.8 F 96 F L Pulse Rate 92 92 92 Blood Pressure 131/83 131/83 129/72 Pulse Oximetry 93 09/29/20 20:16 Temperature Pulse Rate 92 Blood Pressure 129/72 Pulse Oximetry Body Mass Index 33.8 Labs Results: 09/16/20 08:53 08/26/20 08:11 Labs: Laboratory Results - last 48 hr 09/28/20 09/29/20 16:54 16:34 POC Glucose 120 H 138 H Medications Medications Current Medications Generic Name Dose Route Start Last Admin Trade Name Freq PRN Reason Stop Dose Admin Acetaminophen 650 mg 08/26/20 10:22 Acetaminophen 325 Mg Tablet PO Q6H PRN Pain, Mild (Pain Scale 1-3) Albuterol Sulfate 2 puff 08/05/20 19:32 09/16/20 12:31 Albuterol Sulfate 90 Mcg 8 Gm Inhaler INHALE 2 puff DAILY PRN Administration asthma Aspirin 81 mg 08/06/20 09:00 09/29/20 08:49 Aspirin 81 Mg Tab.Chew PO 81 mg DAILY OZZY Administration Atorvastatin Calcium 20 mg 08/05/20 21:00 09/29/20 20:17 Atorvastatin Calcium 20 Mg Tablet PO 20 mg BEDTIME OZZY Administration Clozapine 200 mg 09/06/20 21:00 09/29/20 20:15 Clozapine 100 Mg Tablet PO 200 mg BEDTIME OZZY Administration Clozapine 75 mg 09/25/20 21:00 09/29/20 20:14 Clozapine 25 Mg Tablet PO 75 mg BEDTIME OZZY Administration Divalproex Sodium 1,500 mg 09/07/20 10:15 09/29/20 08:47 Divalproex Sodium Er 250 Mg Tab.Er.24h PO 1,500 mg DAILY OZZY Administration Docusate Sodium 100 mg 08/05/20 21:00 09/29/20 20:17 Docusate Sodium 100 Mg Capsule PO 100 mg BID@0830,2100 OZZY Administration Metoprolol Succinate 37.5 mg 08/05/20 21:00 09/29/20 20:16 Metoprolol Succinate Er 25 Mg Tab.Er.24h PO 37.5 mg BID OZZY Administration Protocol Olanzapine 10 mg 08/22/20 11:41 09/22/20 10:15 Olanzapine 10 Mg Vial IM 10 mg BID PRN Administration Psychosis Olanzapine 10 mg 09/11/20 14:06 09/23/20 14:50 Olanzapine Odt 10 Mg Tab.Rapdis TRANSLINGU 10 mg RQ6H PRN Administration Psychosis Paliperidone 3 mg 09/07/20 09:00 09/29/20 08:49 Paliperidone Er 3 Mg Tab.Er.24 PO 3 mg DAILY OZZY Administration Paliperidone 6 mg 09/07/20 09:00 09/29/20 08:48 Paliperidone Er 6 Mg Tab.Er.24 PO 6 mg DAILY OZZY Administration Quetiapine Fumarate 100 mg 08/16/20 22:10 09/20/20 00:39 Quetiapine Fumarate 100 Mg Tablet PO 100 mg BEDTIME PRN Administration Insomnia Topiramate 50 mg 08/05/20 21:00 09/29/20 08:00 Topiramate 25 Mg Tablet PO 50 mg BEDTIME OZZY Administration Vitamin D 25 mcg 08/06/20 09:00 09/29/20 08:48 Cholecalciferol (Vitamin D3) 25 Mcg Tablet PO 25 mcg DAILY OZZY Administration Allergies Allergies Allergy/AdvReac Type Severity Reaction Status Date / Time lithium [[place]] Allergy Severe TOXICITY Verified 07/28/20 18:08 thiothixene Allergy Severe SWELLING Verified 08/05/20 07:28 barium sulfate Allergy Intermediate NAUSEA & Verified 08/05/20 07:28 [BARIUM SULFATE] VOMITING haloperidol Allergy Intermediate MUSCLE Verified 07/28/20 18:08 TENSION IN LEGS benztropine Allergy Unknown benztropine Verified 08/05/20 07:28 mesylate- unknown diphenhydramine Allergy Unknown urinary Verified 08/05/20 07:28 [From Benadryl] retention fluphenazine Allergy Unknown UNKNOWN Verified 08/05/20 07:28 gabapentin [From NEURONTIN] Allergy Unknown UNKNOWN Verified 07/28/20 18:08 prolixen Allergy Unknown Unknown Uncoded 07/28/20 16:56 Assessment & Plan Assessment & Plan (1) Schizoaffective disorder: Status: Acute Code(s): F25.9 - Schizoaffective disorder, unspecified Assessment and Plan: taper Invega increase Invega to 300 mg Greater than 50% of the session was spent on counseling and/or coordination of care
[2020-09-30 07:00] VITALS: BMI 35.4
[2020-09-30 08:23] LABS: Glucose, Whole Blood 117 mg/dL (60-115)
[2020-09-30 08:52] VITALS: BP 153/83; PULSE 84
[2020-09-30] MEDS: Cholecalciferol (Vitamin D3) 25 MCG TABLET PO (08:52)
[2020-09-30] MEDS: Aspirin 81 MG TAB.CHEW PO (08:52)
[2020-09-30] MEDS: Metoprolol Succinate ER 25 MG TAB.ER.24H 37.5 MG PO ×2 (08:52→21:05)
[2020-09-30] MEDS: Docusate Sodium 100 MG CAPSULE PO ×2 (08:53→21:06)
[2020-09-30] MEDS: Divalproex Sodium ER 250 MG TAB.ER.24H 1500 MG PO (08:53)
[2020-09-30] MEDS: Paliperidone ER 6 MG TAB.ER.24 PO (08:53)
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
[2020-09-30 18:00] VITALS: BP 145/69; PULSE 77; TEMP 36.5
[2020-09-30] MEDS: Topiramate 25 MG TABLET 50 MG PO (21:04)
[2020-09-30 21:05] VITALS: BP 145/69; PULSE 77
[2020-09-30] MEDS: cloZAPine 100 MG TABLET 200 MG PO (21:05)
[2020-09-30] MEDS: cloZAPine 100 MG TABLET PO (21:06)
[2020-09-30] MEDS: Atorvastatin Calcium 20 MG TABLET PO (21:06)
[2020-09-30 21:38] LABS: Glucose, Whole Blood 133 mg/dL (60-115)
[2020-10-01 08:18] LABS: Glucose, Whole Blood 110 mg/dL (60-115)
[2020-10-01 08:29] VITALS: BP 129/70; PULSE 83; TEMP 36.3; O2SAT 97
[2020-10-01 08:45] VITALS: BP 129/70; PULSE 83
[2020-10-01] MEDS: Docusate Sodium 100 MG CAPSULE PO ×2 (08:45→21:21)
[2020-10-01] MEDS: Metoprolol Succinate ER 25 MG TAB.ER.24H 37.5 MG PO ×2 (08:45→21:22)
[2020-10-01] MEDS: Divalproex Sodium ER 250 MG TAB.ER.24H 1500 MG PO (08:45)
[2020-10-01] MEDS: Paliperidone ER 6 MG TAB.ER.24 PO (08:46)
[2020-10-01] MEDS: Aspirin 81 MG TAB.CHEW PO (08:46)
[2020-10-01] MEDS: Cholecalciferol (Vitamin D3) 25 MCG TABLET PO (08:47)
[2020-10-01] MEDS: cloZAPine 100 MG TABLET 200 MG PO (21:21)
[2020-10-01] MEDS: Atorvastatin Calcium 20 MG TABLET PO (21:22)
[2020-10-01] MEDS: cloZAPine 100 MG TABLET PO (21:22)
[2020-10-01] MEDS: Topiramate 25 MG TABLET 50 MG PO (21:22)
[2020-10-01 21:35] VITALS: BP 148/74; PULSE 86; TEMP 36.5
[2020-10-01 21:36] LABS: Glucose, Whole Blood 175 mg/dL (60-115)
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
[2020-10-02] MEDS: Aspirin 81 MG TAB.CHEW PO (08:47)
[2020-10-02] MEDS: Divalproex Sodium ER 250 MG TAB.ER.24H 1500 MG PO (08:47)
[2020-10-02] MEDS: Cholecalciferol (Vitamin D3) 25 MCG TABLET PO (08:47)
[2020-10-02] MEDS: Docusate Sodium 100 MG CAPSULE PO ×2 (08:47→21:39)
[2020-10-02] MEDS: Paliperidone ER 6 MG TAB.ER.24 PO (08:47)
[2020-10-02] MEDS: Metoprolol Succinate ER 25 MG TAB.ER.24H 37.5 MG PO ×2 (08:47→21:37)
[2020-10-02 21:00] VITALS: BP 131/67; PULSE 80; TEMP 36.6
[2020-10-02 21:37] VITALS: BP 131/67; PULSE 80
[2020-10-02] MEDS: Atorvastatin Calcium 20 MG TABLET PO (21:39)
[2020-10-02] MEDS: cloZAPine 100 MG TABLET PO (21:39)
[2020-10-02] MEDS: Topiramate 25 MG TABLET 50 MG PO (21:39)
[2020-10-02] MEDS: cloZAPine 100 MG TABLET 200 MG PO (21:39)
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
[2020-10-03] MEDS: Divalproex Sodium ER 250 MG TAB.ER.24H 1500 MG PO (09:11)
[2020-10-03] MEDS: Cholecalciferol (Vitamin D3) 25 MCG TABLET PO (09:12)
[2020-10-03] MEDS: Docusate Sodium 100 MG CAPSULE PO ×2 (09:12→19:45)
[2020-10-03] MEDS: Aspirin 81 MG TAB.CHEW PO (09:12)
[2020-10-03] MEDS: Paliperidone ER 6 MG TAB.ER.24 PO (09:12)
[2020-10-03] MEDS: Metoprolol Succinate ER 25 MG TAB.ER.24H 37.5 MG PO ×2 (09:12→19:46)
[2020-10-03 18:00] VITALS: RESP 16
[2020-10-03] MEDS: cloZAPine 100 MG TABLET PO (19:45)
[2020-10-03] MEDS: Topiramate 25 MG TABLET 50 MG PO (19:45)
[2020-10-03] MEDS: cloZAPine 100 MG TABLET 200 MG PO (19:45)
[2020-10-03] MEDS: Atorvastatin Calcium 20 MG TABLET PO (19:45)
[2020-10-03 19:46] VITALS: BP 118/78; PULSE 88
[2020-10-03 20:28] LABS: Glucose, Whole Blood 172 mg/dL (60-115)
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
[2020-10-04 04:56] LABS: Glucose, Whole Blood 111 mg/dL (60-115)
[2020-10-04 08:37] VITALS: BP 140/77; PULSE 81
[2020-10-04] MEDS: Metoprolol Succinate ER 25 MG TAB.ER.24H 37.5 MG PO ×2 (08:37→20:39)
[2020-10-04] MEDS: Aspirin 81 MG TAB.CHEW PO (08:37)
[2020-10-04] MEDS: Divalproex Sodium ER 250 MG TAB.ER.24H 1500 MG PO (08:37)
[2020-10-04] MEDS: Cholecalciferol (Vitamin D3) 25 MCG TABLET PO (08:39)
[2020-10-04] MEDS: Docusate Sodium 100 MG CAPSULE PO ×2 (08:39→20:39)
[2020-10-04] MEDS: Paliperidone ER 6 MG TAB.ER.24 PO (08:39)
[2020-10-04 09:38] VITALS: BP 140/77; PULSE 81; TEMP 36.7; O2SAT 94
[2020-10-04 18:00] VITALS: BP 134/78; PULSE 84; TEMP 37.1
[2020-10-04] MEDS: Topiramate 25 MG TABLET 50 MG PO (20:40)
[2020-10-04] MEDS: cloZAPine 100 MG TABLET PO (20:40)
[2020-10-04] MEDS: Atorvastatin Calcium 20 MG TABLET PO (20:40)
[2020-10-04 20:53] LABS: Glucose, Whole Blood 120 mg/dL (60-115)
[2020-10-04] MEDS: cloZAPine 100 MG TABLET 200 MG PO (20:55)
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
[2020-10-05 06:30] VITALS: BP 148/82; PULSE 76; RESP 18; TEMP 36.5; O2SAT 95
[2020-10-05 06:42] LABS: Glucose, Whole Blood 113 mg/dL (60-115)
[2020-10-05 08:55] VITALS: BP 148/82; PULSE 76
[2020-10-05] MEDS: Metoprolol Succinate ER 25 MG TAB.ER.24H 37.5 MG PO ×2 (08:55→20:29)
[2020-10-05] MEDS: Divalproex Sodium ER 250 MG TAB.ER.24H 1500 MG PO (08:56)
[2020-10-05] MEDS: Paliperidone ER 6 MG TAB.ER.24 PO (08:57)
[2020-10-05] MEDS: Aspirin 81 MG TAB.CHEW PO (08:57)
[2020-10-05] MEDS: Cholecalciferol (Vitamin D3) 25 MCG TABLET PO (08:57)
[2020-10-05] MEDS: Docusate Sodium 100 MG CAPSULE PO ×2 (08:57→20:31)
[2020-10-05 17:30] LABS: Glucose, Whole Blood 102 mg/dL (60-115)
[2020-10-05 18:00] VITALS: BP 166/84; PULSE 80; TEMP 36.3
[2020-10-05 20:29] VITALS: BP 166/84; PULSE 80
[2020-10-05] MEDS: Topiramate 25 MG TABLET 50 MG PO (20:29)
[2020-10-05] MEDS: cloZAPine 100 MG TABLET PO (20:31)
[2020-10-05] MEDS: cloZAPine 100 MG TABLET 200 MG PO (20:31)
[2020-10-05] MEDS: Atorvastatin Calcium 20 MG TABLET PO (20:32)
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
[2020-10-06 06:50] VITALS: BP 150/75; PULSE 80; RESP 20; TEMP 36.6; O2SAT 96
[2020-10-06] MEDS: Aspirin 81 MG TAB.CHEW PO (08:21)
[2020-10-06 08:22] VITALS: BP 150/75; PULSE 80
[2020-10-06] MEDS: Docusate Sodium 100 MG CAPSULE PO ×2 (08:22→20:39)
[2020-10-06] MEDS: Metoprolol Succinate ER 25 MG TAB.ER.24H 37.5 MG PO ×2 (08:22→20:39)
[2020-10-06] MEDS: Cholecalciferol (Vitamin D3) 25 MCG TABLET PO (08:23)
[2020-10-06] MEDS: Paliperidone ER 6 MG TAB.ER.24 PO (08:23)
[2020-10-06] MEDS: Divalproex Sodium ER 250 MG TAB.ER.24H 1500 MG PO (08:23)
[2020-10-06 18:00] VITALS: BP 116/64; PULSE 99; TEMP 37.1
[2020-10-06 20:39] VITALS: BP 116/64; PULSE 99
[2020-10-06] MEDS: Atorvastatin Calcium 20 MG TABLET PO (20:40)
[2020-10-06] MEDS: Topiramate 25 MG TABLET 50 MG PO (20:40)
[2020-10-06] MEDS: cloZAPine 100 MG TABLET 200 MG PO (20:40)
[2020-10-06] MEDS: cloZAPine 100 MG TABLET PO (20:41)
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
[2020-10-06 22:03] LABS: Glucose, Whole Blood 167 mg/dL (60-115)
[2020-10-07 06:00] VITALS: BP 134/64; PULSE 80; TEMP 36.6; O2SAT 94
[2020-10-07 08:35] VITALS: BP 134/64; PULSE 80
[2020-10-07] MEDS: Metoprolol Succinate ER 25 MG TAB.ER.24H 37.5 MG PO ×2 (08:35→21:19)
[2020-10-07] MEDS: Cholecalciferol (Vitamin D3) 25 MCG TABLET PO (08:35)
[2020-10-07] MEDS: Paliperidone ER 6 MG TAB.ER.24 PO (08:36)
[2020-10-07] MEDS: Aspirin 81 MG TAB.CHEW PO (08:36)
[2020-10-07] MEDS: Divalproex Sodium ER 250 MG TAB.ER.24H 1500 MG PO (08:36)
[2020-10-07] MEDS: Docusate Sodium 100 MG CAPSULE PO ×2 (08:36→21:20)
[2020-10-07 12:32] LABS: Glucose, Whole Blood 181 mg/dL (60-115)
[2020-10-07 18:00] VITALS: BP 116/75; PULSE 99
[2020-10-07 21:19] VITALS: BP 116/75; PULSE 99
[2020-10-07] MEDS: Atorvastatin Calcium 20 MG TABLET PO (21:20)
[2020-10-07] MEDS: cloZAPine 100 MG TABLET PO (21:20)
[2020-10-07] MEDS: cloZAPine 100 MG TABLET 200 MG PO (21:20)
[2020-10-07] MEDS: Topiramate 25 MG TABLET 50 MG PO (21:20)
[2020-10-07 21:55] LABS: Glucose, Whole Blood 172 mg/dL (60-115)
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
[2020-10-08 08:00] VITALS: BP 129/76; PULSE 95; RESP 18; TEMP 35.9; O2SAT 96
[2020-10-08 08:03] LABS: Glucose, Whole Blood 110 mg/dL (60-115)
[2020-10-08] MEDS: Paliperidone ER 6 MG TAB.ER.24 PO (09:07)
[2020-10-08] MEDS: Cholecalciferol (Vitamin D3) 25 MCG TABLET PO (09:07)
[2020-10-08] MEDS: Aspirin 81 MG TAB.CHEW PO (09:07)
[2020-10-08 09:08] VITALS: BP 129/76; PULSE 95
[2020-10-08] MEDS: Metoprolol Succinate ER 25 MG TAB.ER.24H 37.5 MG PO ×2 (09:08→20:37)
[2020-10-08] MEDS: Divalproex Sodium ER 250 MG TAB.ER.24H 1500 MG PO (09:09)
[2020-10-08] MEDS: Docusate Sodium 100 MG CAPSULE PO ×2 (09:11→20:38)
--- NOTE | 2020-10-08 13:06 | P.PNPSI_ITS ---
Subjective Subjective Date of Service: 10/08/20 Reason For Visit: Psychosis Subjective Notes: Legal Status (sec 8) Interim History: Less irritable Medication Compliance: Yes Side effects from medications: No Attending Groups: No Review of Systems Acute medical concerns: No Medical Review of Systems: unchanged Mental Status Exam Mental Status Exam Patient Appearance: Disheveled Patient Orientation: Person, Place, Time and Situation Level of Consciousness: Drowsy Patient Behavior: Appropriate Mood Description: Withdrawn Affect Description: Blunted Patient Cognition Impaired: No Ability to Follow Directions: Fair Speech Pattern: Mumbled Hallucinations: None Thought Process: Intact Thought Content: positive for [place] and positive for Disorganized Judgement: Poor Diagnostics Vital Signs (24Hr): Vital Signs - 24 hr 10/07/20 18:00 10/07/20 21:19 10/08/20 08:00 Temperature 96.7 F L Pulse Rate 99 99 95 Respiratory Rate 18 Blood Pressure 116/75 116/75 129/76 Pulse Oximetry 96 10/08/20 09:08 Temperature Pulse Rate 95 Respiratory Rate Blood Pressure 129/76 Pulse Oximetry Body Mass Index 35.4 Labs Results: 09/16/20 08:53 08/26/20 08:11 Labs: Laboratory Results - last 48 hr 10/06/20 10/07/20 10/07/20 20:46 12:01 21:48 POC Glucose 167 H 181 H 172 H 10/08/20 07:59 POC Glucose 110 Medications Medications Current Medications Generic Name Dose Route Start Last Admin Trade Name Freq PRN Reason Stop Dose Admin Acetaminophen 650 mg 08/26/20 10:22 Acetaminophen 325 Mg Tablet PO Q6H PRN Pain, Mild (Pain Scale 1-3) Albuterol Sulfate 2 puff 08/05/20 19:32 09/16/20 12:31 Albuterol Sulfate 90 Mcg 8 Gm Inhaler INHALE 2 puff DAILY PRN Administration asthma Aspirin 81 mg 08/06/20 09:00 10/08/20 09:07 Aspirin 81 Mg Tab.Chew PO 81 mg DAILY OZZY Administration Atorvastatin Calcium 20 mg 08/05/20 21:00 10/07/20 21:20 Atorvastatin Calcium 20 Mg Tablet PO 20 mg BEDTIME OZZY Administration Clozapine 200 mg 09/06/20 21:00 10/07/20 21:20 Clozapine 100 Mg Tablet PO 200 mg BEDTIME OZZY Administration Clozapine 100 mg 09/30/20 21:00 10/07/20 21:20 Clozapine 100 Mg Tablet PO 100 mg BEDTIME OZZY Administration Divalproex Sodium 1,500 mg 09/07/20 10:15 10/08/20 09:09 Divalproex Sodium Er 250 Mg Tab.Er.24h PO 1,500 mg DAILY OZZY Administration Docusate Sodium 100 mg 08/05/20 21:00 10/08/20 09:11 Docusate Sodium 100 Mg Capsule PO 100 mg BID@0830,2100 OZZY Administration Metoprolol Succinate 37.5 mg 08/05/20 21:00 10/08/20 09:08 Metoprolol Succinate Er 25 Mg Tab.Er.24h PO 37.5 mg BID OZZY Administration Protocol Olanzapine 10 mg 08/22/20 11:41 09/22/20 10:15 Olanzapine 10 Mg Vial IM 10 mg BID PRN Administration Psychosis Olanzapine 10 mg 09/11/20 14:06 09/23/20 14:50 Olanzapine Odt 10 Mg Tab.Rapdis TRANSLINGU 10 mg RQ6H PRN Administration Psychosis Paliperidone 6 mg 09/07/20 09:00 10/08/20 09:07 Paliperidone Er 6 Mg Tab.Er.24 PO 6 mg DAILY OZZY Administration Quetiapine Fumarate 100 mg 08/16/20 22:10 09/20/20 00:39 Quetiapine Fumarate 100 Mg Tablet PO 100 mg BEDTIME PRN Administration Insomnia Topiramate 50 mg 08/05/20 21:00 10/07/20 21:20 Topiramate 25 Mg Tablet PO 50 mg BEDTIME OZZY Administration Vitamin D 25 mcg 08/06/20 09:00 10/08/20 09:07 Cholecalciferol (Vitamin D3) 25 Mcg Tablet PO 25 mcg DAILY OZZY Administration Allergies Allergies Allergy/AdvReac Type Severity Reaction Status Date / Time lithium [[place]] Allergy Severe TOXICITY Verified 07/28/20 18:08 thiothixene Allergy Severe SWELLING Verified 08/05/20 07:28 barium sulfate Allergy Intermediate NAUSEA & Verified 08/05/20 07:28 [BARIUM SULFATE] VOMITING haloperidol Allergy Intermediate MUSCLE Verified 07/28/20 18:08 TENSION IN LEGS benztropine Allergy Unknown benztropine Verified 08/05/20 07:28 mesylate- unknown diphenhydramine Allergy Unknown urinary Verified 08/05/20 07:28 [From Benadryl] retention fluphenazine Allergy Unknown UNKNOWN Verified 08/05/20 07:28 gabapentin [From NEURONTIN] Allergy Unknown UNKNOWN Verified 07/28/20 18:08 prolixen Allergy Unknown Unknown Uncoded 07/28/20 16:56 Assessment & Plan Assessment & Plan (1) Schizoaffective disorder: Status: Acute Code(s): F25.9 - Schizoaffective disorder, unspecified Assessment and Plan: will order clozapine level, ekg is pending Greater than 50% of the session was spent on counseling and/or coordination of care
[2020-10-08 18:00] VITALS: BP 144/83; PULSE 85; TEMP 36.3
[2020-10-08 20:37] VITALS: BP 144/83; PULSE 85
[2020-10-08] MEDS: Topiramate 25 MG TABLET 50 MG PO (20:37)
[2020-10-08] MEDS: Atorvastatin Calcium 20 MG TABLET PO (20:37)
[2020-10-08] MEDS: cloZAPine 100 MG TABLET 200 MG PO (20:37)
[2020-10-08] MEDS: cloZAPine 100 MG TABLET PO (20:38)
[2020-10-08 20:48] LABS: Glucose, Whole Blood 143 mg/dL (60-115)
[2020-10-09 06:00] VITALS: BP 182/79; PULSE 94; TEMP 36.3; O2SAT 95
[2020-10-09 07:01] LABS: Glucose, Whole Blood 130 mg/dL (60-115)
[2020-10-09] MEDS: Divalproex Sodium ER 250 MG TAB.ER.24H 1500 MG PO (09:15)
[2020-10-09 09:16] VITALS: BP 182/79; PULSE 94
[2020-10-09] MEDS: Metoprolol Succinate ER 25 MG TAB.ER.24H 37.5 MG PO ×2 (09:16→20:44)
[2020-10-09] MEDS: Docusate Sodium 100 MG CAPSULE PO ×2 (09:17→20:44)
[2020-10-09] MEDS: Cholecalciferol (Vitamin D3) 25 MCG TABLET PO (09:17)
[2020-10-09] MEDS: Paliperidone ER 6 MG TAB.ER.24 PO (09:17)
[2020-10-09] MEDS: Aspirin 81 MG TAB.CHEW PO (09:17)
[2020-10-09 12:02] VITALS: BP 119/65; PULSE 79
--- NOTE | 2020-10-09 13:04 | P.PNPSI_ITS ---
Subjective Subjective Date of Service: 10/09/20 Reason For Visit: Psychosis Subjective Notes: Legal Status (8) Interim History: Pt lying in bed, says he is fine, not wanting to engage with provider Medication Compliance: Yes Side effects from medications: No Attending Groups: No Mental Status Exam Mental Status Exam Patient Appearance: Disheveled Patient Orientation: Person and Place Level of Consciousness: Drowsy Patient Behavior: Isolative Mood Description: Apathetic Affect Description: Calm and Withdrawn Patient Cognition Impaired: No Ability to Follow Directions: Fair Speech Pattern: Slurred Hallucinations: None Delusions: Not Present Thought Process: Intact Thought Content: positive for Poverty of Content Depressive Symptoms: Difficulty Concentrating Abnormal Motor Activity Signs and Symptoms: Psychomotor Retardation Judgement: Fair Diagnostics Vital Signs (24Hr): Vital Signs - 24 hr 10/08/20 18:00 10/08/20 20:37 10/09/20 06:00 Temperature 97.4 F 97.4 F Pulse Rate 85 85 94 Blood Pressure 144/83 H 144/83 H 182/79 H Pulse Oximetry 95 10/09/20 09:16 10/09/20 12:02 Temperature Pulse Rate 94 79 Blood Pressure 182/79 H 119/65 Pulse Oximetry Body Mass Index 35.4 Labs Results: 09/16/20 08:53 08/26/20 08:11 Labs: Laboratory Results - last 48 hr 10/07/20 10/08/20 10/08/20 21:48 07:59 20:42 POC Glucose 172 H 110 143 H 10/09/20 06:55 POC Glucose 130 H Medications Medications Current Medications Generic Name Dose Route Start Last Admin Trade Name Freq PRN Reason Stop Dose Admin Acetaminophen 650 mg 08/26/20 10:22 Acetaminophen 325 Mg Tablet PO Q6H PRN Pain, Mild (Pain Scale 1-3) Albuterol Sulfate 2 puff 08/05/20 19:32 09/16/20 12:31 Albuterol Sulfate 90 Mcg 8 Gm Inhaler INHALE 2 puff DAILY PRN Administration asthma Aspirin 81 mg 08/06/20 09:00 10/09/20 09:17 Aspirin 81 Mg Tab.Chew PO 81 mg DAILY OZZY Administration Atorvastatin Calcium 20 mg 08/05/20 21:00 10/08/20 20:37 Atorvastatin Calcium 20 Mg Tablet PO 20 mg BEDTIME OZZY Administration Clozapine 200 mg 09/06/20 21:00 10/08/20 20:37 Clozapine 100 Mg Tablet PO 200 mg BEDTIME OZZY Administration Clozapine 100 mg 09/30/20 21:00 10/08/20 20:38 Clozapine 100 Mg Tablet PO 100 mg BEDTIME OZZY Administration Divalproex Sodium 1,500 mg 09/07/20 10:15 10/09/20 09:15 Divalproex Sodium Er 250 Mg Tab.Er.24h PO 1,500 mg DAILY OZZY Administration Docusate Sodium 100 mg 08/05/20 21:00 10/09/20 09:17 Docusate Sodium 100 Mg Capsule PO 100 mg BID@0830,2100 OZZY Administration Metoprolol Succinate 37.5 mg 08/05/20 21:00 10/09/20 09:16 Metoprolol Succinate Er 25 Mg Tab.Er.24h PO 37.5 mg BID OZZY Administration Protocol Olanzapine 10 mg 08/22/20 11:41 09/22/20 10:15 Olanzapine 10 Mg Vial IM 10 mg BID PRN Administration Psychosis Olanzapine 10 mg 09/11/20 14:06 09/23/20 14:50 Olanzapine Odt 10 Mg Tab.Rapdis TRANSLINGU 10 mg RQ6H PRN Administration Psychosis Paliperidone 6 mg 09/07/20 09:00 10/09/20 09:17 Paliperidone Er 6 Mg Tab.Er.24 PO 6 mg DAILY OZZY Administration Quetiapine Fumarate 100 mg 08/16/20 22:10 09/20/20 00:39 Quetiapine Fumarate 100 Mg Tablet PO 100 mg BEDTIME PRN Administration Insomnia Topiramate 50 mg 08/05/20 21:00 10/08/20 20:37 Topiramate 25 Mg Tablet PO 50 mg BEDTIME OZZY Administration Vitamin D 25 mcg 08/06/20 09:00 10/09/20 09:17 Cholecalciferol (Vitamin D3) 25 Mcg Tablet PO 25 mcg DAILY OZZY Administration Allergies Allergies Allergy/AdvReac Type Severity Reaction Status Date / Time lithium [[place]] Allergy Severe TOXICITY Verified 07/28/20 18:08 thiothixene Allergy Severe SWELLING Verified 08/05/20 07:28 barium sulfate Allergy Intermediate NAUSEA & Verified 08/05/20 07:28 [BARIUM SULFATE] VOMITING haloperidol Allergy Intermediate MUSCLE Verified 07/28/20 18:08 TENSION IN LEGS benztropine Allergy Unknown benztropine Verified 08/05/20 07:28 mesylate- unknown diphenhydramine Allergy Unknown urinary Verified 08/05/20 07:28 [From Benadryl] retention fluphenazine Allergy Unknown UNKNOWN Verified 08/05/20 07:28 gabapentin [From NEURONTIN] Allergy Unknown UNKNOWN Verified 07/28/20 18:08 prolixen Allergy Unknown Unknown Uncoded 07/28/20 16:56 Assessment & Plan Assessment & Plan (1) Schizoaffective disorder: Status: Acute Code(s): F25.9 - Schizoaffective disorder, unspecified Assessment and Plan: pending ekg and clozapine lvl will need anc next week Greater than 50% of the session was spent on counseling and/or coordination of care
[2020-10-09 18:00] VITALS: BP 124/61; PULSE 80; TEMP 36.7
[2020-10-09] MEDS: Albuterol Sulfate 90 MCG 8 GM INHALER 2 PUFF INHALE (19:32)
[2020-10-09 20:44] VITALS: BP 124/61; PULSE 80
[2020-10-09] MEDS: cloZAPine 100 MG TABLET 200 MG PO (20:45)
[2020-10-09] MEDS: Atorvastatin Calcium 20 MG TABLET PO (20:45)
[2020-10-09] MEDS: Topiramate 25 MG TABLET 50 MG PO (20:46)
[2020-10-09] MEDS: cloZAPine 100 MG TABLET PO (20:46)
[2020-10-09 20:55] LABS: Glucose, Whole Blood 145 mg/dL (60-115)
[2020-10-10 05:30] LABS: Glucose, Whole Blood 128 mg/dL (60-115)
[2020-10-10 06:00] VITALS: BP 149/70; PULSE 80; TEMP 36.6; O2SAT 94
[2020-10-10] MEDS: Aspirin 81 MG TAB.CHEW PO (09:03)
[2020-10-10] MEDS: Divalproex Sodium ER 250 MG TAB.ER.24H 1500 MG PO (09:03)
[2020-10-10 09:04] VITALS: BP 124/61; PULSE 80
[2020-10-10] MEDS: Metoprolol Succinate ER 25 MG TAB.ER.24H 37.5 MG PO ×2 (09:04→20:17)
[2020-10-10] MEDS: Cholecalciferol (Vitamin D3) 25 MCG TABLET PO (09:04)
[2020-10-10] MEDS: Docusate Sodium 100 MG CAPSULE PO ×2 (09:04→20:17)
[2020-10-10] MEDS: Paliperidone ER 6 MG TAB.ER.24 PO (09:04)
--- NOTE | 2020-10-10 13:07 | P.PNPSI_ITS ---
Subjective Subjective Date of Service: 10/10/20 Reason For Visit: Psychosis Subjective Notes: Legal Status (8) Interim History: lying in bed, withdrawn, disheveled ? depressed but cooperative, minimally enageed no questions denies problems Medication Compliance: Yes Side effects from medications: Yes (weight gain) Attending Groups: No Mental Status Exam Mental Status Exam Patient Appearance: Disheveled Patient Orientation: Person and Place Level of Consciousness: Drowsy Patient Behavior: Isolative Mood Description: Apathetic Affect Description: Calm and Withdrawn Patient Cognition Impaired: No Ability to Follow Directions: Fair Speech Pattern: Slurred Hallucinations: None Delusions: Not Present Thought Process: Intact Thought Content: positive for Poverty of Content Depressive Symptoms: Difficulty Concentrating Abnormal Motor Activity Signs and Symptoms: Psychomotor Retardation Judgement: Fair Diagnostics Vital Signs (24Hr): Vital Signs - 24 hr 10/09/20 18:00 10/09/20 20:44 10/10/20 06:00 Temperature 98.1 F 97.8 F Pulse Rate 80 80 80 Blood Pressure 124/61 124/61 149/70 H Pulse Oximetry 94 10/10/20 09:04 Temperature Pulse Rate 80 Blood Pressure 124/61 Pulse Oximetry Body Mass Index 35.4 Labs Results: 09/16/20 08:53 08/26/20 08:11 Labs: Laboratory Results - last 48 hr 10/08/20 10/09/20 10/09/20 20:42 06:55 20:50 POC Glucose 143 H 130 H 145 H 10/10/20 05:23 POC Glucose 128 H Medications Medications Current Medications Generic Name Dose Route Start Last Admin Trade Name Freq PRN Reason Stop Dose Admin Acetaminophen 650 mg 08/26/20 10:22 Acetaminophen 325 Mg Tablet PO Q6H PRN Pain, Mild (Pain Scale 1-3) Albuterol Sulfate 2 puff 08/05/20 19:32 10/09/20 19:32 Albuterol Sulfate 90 Mcg 8 Gm Inhaler INHALE 2 puff DAILY PRN Administration asthma Aspirin 81 mg 08/06/20 09:00 10/10/20 09:03 Aspirin 81 Mg Tab.Chew PO 81 mg DAILY OZZY Administration Atorvastatin Calcium 20 mg 08/05/20 21:00 10/09/20 20:45 Atorvastatin Calcium 20 Mg Tablet PO 20 mg BEDTIME OZZY Administration Clozapine 200 mg 09/06/20 21:00 01/02/21 20:45 Clozapine 100 Mg Tablet PO 200 mg BEDTIME OZZY Administration Clozapine 100 mg 09/30/20 21:00 10/09/20 20:46 Clozapine 100 Mg Tablet PO 100 mg BEDTIME OZZY Administration Divalproex Sodium 1,500 mg 09/07/20 10:15 10/10/20 09:03 Divalproex Sodium Er 250 Mg Tab.Er.24h PO 1,500 mg DAILY OZZY Administration Docusate Sodium 100 mg 08/05/20 21:00 10/10/20 09:04 Docusate Sodium 100 Mg Capsule PO 100 mg BID@0830,2100 OZZY Administration Metoprolol Succinate 37.5 mg 08/05/20 21:00 10/10/20 09:04 Metoprolol Succinate Er 25 Mg Tab.Er.24h PO 37.5 mg BID OZZY Administration Protocol Olanzapine 10 mg 08/22/20 11:41 09/22/20 10:15 Olanzapine 10 Mg Vial IM 10 mg BID PRN Administration Psychosis Olanzapine 10 mg 09/11/20 14:06 09/23/20 14:50 Olanzapine Odt 10 Mg Tab.Rapdis TRANSLINGU 10 mg RQ6H PRN Administration Psychosis Paliperidone 6 mg 09/07/20 09:00 10/10/20 09:04 Paliperidone Er 6 Mg Tab.Er.24 PO 6 mg DAILY OZZY Administration Quetiapine Fumarate 100 mg 08/16/20 22:10 09/20/20 00:39 Quetiapine Fumarate 100 Mg Tablet PO 100 mg BEDTIME PRN Administration Insomnia Topiramate 50 mg 08/05/20 21:00 10/09/20 20:46 Topiramate 25 Mg Tablet PO 50 mg BEDTIME OZZY Administration Vitamin D 25 mcg 08/06/20 09:00 10/10/20 09:04 Cholecalciferol (Vitamin D3) 25 Mcg Tablet PO 25 mcg DAILY OZZY Administration Allergies Allergies Allergy/AdvReac Type Severity Reaction Status Date / Time lithium [[place]] Allergy Severe TOXICITY Verified 07/28/20 18:08 thiothixene Allergy Severe SWELLING Verified 08/05/20 07:28 barium sulfate Allergy Intermediate NAUSEA & Verified 08/05/20 07:28 [BARIUM SULFATE] VOMITING haloperidol Allergy Intermediate MUSCLE Verified 07/28/20 18:08 TENSION IN LEGS benztropine Allergy Unknown benztropine Verified 08/05/20 07:28 mesylate- unknown diphenhydramine Allergy Unknown urinary Verified 08/05/20 07:28 [From Benadryl] retention fluphenazine Allergy Unknown UNKNOWN Verified 08/05/20 07:28 gabapentin [From NEURONTIN] Allergy Unknown UNKNOWN Verified 07/28/20 18:08 prolixen Allergy Unknown Unknown Uncoded 07/28/20 16:56 Assessment & Plan Assessment & Plan (1) Schizoaffective disorder: Status: Acute Code(s): F25.9 - Schizoaffective disorder, unspecified Assessment and Plan: ekg and clozapine pending needs anc this week Greater than 50% of the session was spent on counseling and/or coordination of care
[2020-10-10 18:00] VITALS: BP 128/58; PULSE 84; RESP 20; TEMP 36.6; O2SAT 95
[2020-10-10 20:17] VITALS: BP 128/58; PULSE 84
[2020-10-10] MEDS: Topiramate 25 MG TABLET 50 MG PO (20:17)
[2020-10-10] MEDS: cloZAPine 100 MG TABLET PO (20:17)
[2020-10-10] MEDS: Atorvastatin Calcium 20 MG TABLET PO (20:17)
[2020-10-10] MEDS: cloZAPine 100 MG TABLET 200 MG PO (20:17)
[2020-10-10 20:28] LABS: Glucose, Whole Blood 112 mg/dL (60-115)
[2020-10-11 05:20] LABS: Glucose, Whole Blood 114 mg/dL (60-115)
[2020-10-11 09:10] VITALS: BP 128/58; PULSE 84
[2020-10-11] MEDS: Metoprolol Succinate ER 25 MG TAB.ER.24H 37.5 MG PO ×2 (09:10→20:40)
[2020-10-11] MEDS: Divalproex Sodium ER 250 MG TAB.ER.24H 1500 MG PO (09:10)
[2020-10-11] MEDS: Paliperidone ER 6 MG TAB.ER.24 PO (09:10)
[2020-10-11] MEDS: Docusate Sodium 100 MG CAPSULE PO ×2 (09:10→20:40)
[2020-10-11] MEDS: Cholecalciferol (Vitamin D3) 25 MCG TABLET PO (09:10)
[2020-10-11] MEDS: Aspirin 81 MG TAB.CHEW PO (09:11)
[2020-10-11 12:01] LABS: Basophils Percent Auto 0.5 % (0-2); MANUAL DIFF FLAG SCAN; Mean Corpuscular Volume 87.3 fL (80-98); Monocytes Absolute Auto 0.9 X10*3/uL (0.1-1.2); PLT CLUMP 1; SCAN SMEAR FLAG 1
[2020-10-11 12:03] LABS: Eosinophils Absolute Auto 0.1 X10*3/uL (0.0-0.4); Eosinophils Percent Auto 1.2 % (0-4); Hematocrit 42.7 % (42-52); Hemoglobin 13.7 g/dl (14.0-18.0); Imm Gran Abs Auto 0.03 X10*3/uL (0.00-0.03); Imm Gran Pct Auto 0.5 % (0.0-0.4); Lymphocytes Absolute Auto 1.6 X10*3/uL (1.2-4.9); Lymphocytes Percent Auto 25.8 % (20-40); Mean Corpuscular HGB Conc 32.1 g/dl (31.0-36.0); Mean Platelet Volume 11.9 fL (9.4-12.4); Monocytes Percent Auto 14.4 % (2-11); Neutrophils Absolute Auto 3.5 X10*3/uL (2.0-8.3); Neutrophils Percent Auto 57.6 % (45-73); Platelet Count 120 X10*3/uL (160-400); Red Blood Count 4.89 X10*6/uL (4.60-5.80); Red Cell Distribution Width 14.6 % (11.0-16.0)
[2020-10-11 18:00] VITALS: BP 111/68; PULSE 87; TEMP 36.5
[2020-10-11 19:05] LABS: Glucose, Whole Blood 122 mg/dL (60-115)
[2020-10-11 20:40] VITALS: BP 111/68; PULSE 87
[2020-10-11] MEDS: Topiramate 25 MG TABLET 50 MG PO (20:42)
[2020-10-11] MEDS: cloZAPine 100 MG TABLET 200 MG PO (20:42)
[2020-10-11] MEDS: cloZAPine 100 MG TABLET PO (20:42)
[2020-10-11] MEDS: Atorvastatin Calcium 20 MG TABLET PO (20:42)
--- NOTE | 2020-10-11 22:28 | HO.PSYCHPN ---
Subjective Subjective Date of Service: 10/11/20 Reason For Visit: Psychosis Subjective Notes: [place] Order Interim History: patient has been depressed and withdrawn had discussion regarding starting a low dose of Latuda Medication Compliance: Intermittent Side effects from medications: No Mental Status Exam Mental Status Exam Patient Appearance: Disheveled Patient Orientation: Person and Place Level of Consciousness: Drowsy Patient Behavior: Isolative Mood Description: Apathetic Affect Description: Calm and Withdrawn Patient Cognition Impaired: No Ability to Follow Directions: Fair Speech Pattern: Slurred Hallucinations: None Delusions: Not Present Thought Process: Intact Thought Content: positive for Poverty of Content Depressive Symptoms: Difficulty Concentrating Abnormal Motor Activity Signs and Symptoms: Psychomotor Retardation Judgement: Fair Diagnostics Vital Signs (24Hr): Vital Signs - 24 hr 10/11/20 09:10 10/11/20 18:00 10/11/20 20:40 Temperature 97.7 F Pulse Rate 84 87 87 Blood Pressure 128/58 L 111/68 111/68 Body Mass Index 35.4 Labs Results: 10/11/20 11:50 08/26/20 08:11 Labs: Laboratory Results - last 48 hr 10/10/20 10/10/20 10/11/20 05:23 20:23 05:15 WBC RBC Hgb Hct MCV MCH MCHC RDW Plt Count MPV Immature Gran % (Auto) Neut % (Auto) Lymph % (Auto) [place] % (Auto) Eos % (Auto) Baso % (Auto) Lymph # (Auto) [place] # (Auto) Eos # (Auto) Baso # (Auto) Abs Immat Gran (auto) Absolute Neuts (auto) Absolute Nucleated RBC Nucleated RBC % (auto) Smear Tech's Comments POC Glucose 128 H 112 114 10/11/20 10/11/20 11:50 19:01 WBC 6.0 RBC 4.89 Hgb 13.7 L Hct 42.7 MCV 87.3 MCH 28.0 MCHC 32.1 RDW 14.6 Plt Count 120 L MPV 11.9 Immature Gran % (Auto) 0.5 H Neut % (Auto) 57.6 Lymph % (Auto) 25.8 Gordon % (Auto) 14.4 H Eos % (Auto) 1.2 Baso % (Auto) 0.5 Lymph # (Auto) 1.6 [place] # (Auto) 0.9 Eos # (Auto) 0.1 Baso # (Auto) 0.0 Abs Immat Gran (auto) 0.03 Absolute Neuts (auto) 3.5 Absolute Nucleated RBC 0.000 Nucleated RBC % (auto) 0.0 Smear Tech's Comments Not Reportable POC Glucose 122 H Medications Medications Current Medications Generic Name Dose Route Start Last Admin Trade Name Freq PRN Reason Stop Dose Admin Acetaminophen 650 mg 08/26/20 10:22 Acetaminophen 325 Mg Tablet PO Q6H PRN Pain, Mild (Pain Scale 1-3) Albuterol Sulfate 2 puff 08/05/20 19:32 10/09/20 19:32 Albuterol Sulfate 90 Mcg 8 Gm Inhaler INHALE 2 puff DAILY PRN Administration asthma Aspirin 81 mg 08/06/20 09:00 10/11/20 09:11 Aspirin 81 Mg Tab.Chew PO 81 mg DAILY OZZY Administration Atorvastatin Calcium 20 mg 08/05/20 21:00 10/11/20 20:42 Atorvastatin Calcium 20 Mg Tablet PO 20 mg BEDTIME OZZY Administration Clozapine 200 mg 09/06/20 21:00 10/11/20 20:42 Clozapine 100 Mg Tablet PO 200 mg BEDTIME OZZY Administration Clozapine 100 mg 09/30/20 21:00 10/11/20 20:42 Clozapine 100 Mg Tablet PO 100 mg BEDTIME OZZY Administration Divalproex Sodium 1,500 mg 09/07/20 10:15 10/11/20 09:10 Divalproex Sodium Er 250 Mg Tab.Er.24h PO 1,500 mg DAILY OZZY Administration Docusate Sodium 100 mg 08/05/20 21:00 10/11/20 20:40 Docusate Sodium 100 Mg Capsule PO 100 mg BID@0830,2100 OZZY Administration Metoprolol Succinate 37.5 mg 08/05/20 21:00 10/11/20 20:40 Metoprolol Succinate Er 25 Mg Tab.Er.24h PO 37.5 mg BID OZZY Administration Protocol Olanzapine 10 mg 08/22/20 11:41 09/22/20 10:15 Olanzapine 10 Mg Vial IM 10 mg BID PRN Administration Psychosis Olanzapine 10 mg 09/11/20 14:06 09/23/20 14:50 Olanzapine Odt 10 Mg Tab.Rapdis TRANSLINGU 10 mg RQ6H PRN Administration Psychosis Paliperidone 6 mg 09/07/20 09:00 10/11/20 09:10 Paliperidone Er 6 Mg Tab.Er.24 PO 6 mg DAILY OZZY Administration Quetiapine Fumarate 100 mg 08/16/20 22:10 09/20/20 00:39 Quetiapine Fumarate 100 Mg Tablet PO 100 mg BEDTIME PRN Administration Insomnia Topiramate 50 mg 08/05/20 21:00 10/11/20 20:42 Topiramate 25 Mg Tablet PO 50 mg BEDTIME OZZY Administration Vitamin D 25 mcg 08/06/20 09:00 10/11/20 09:10 Cholecalciferol (Vitamin D3) 25 Mcg Tablet PO 25 mcg DAILY OZZY Administration Allergies Allergies Allergy/AdvReac Type Severity Reaction Status Date / Time lithium [[place]] Allergy Severe TOXICITY Verified 07/28/20 18:08 thiothixene Allergy Severe SWELLING Verified 08/05/20 07:28 barium sulfate Allergy Intermediate NAUSEA & Verified 08/05/20 07:28 [BARIUM SULFATE] VOMITING haloperidol Allergy Intermediate MUSCLE Verified 07/28/20 18:08 TENSION IN LEGS benztropine Allergy Unknown benztropine Verified 08/05/20 07:28 mesylate- unknown diphenhydramine Allergy Unknown urinary Verified 08/05/20 07:28 [From Benadryl] retention fluphenazine Allergy Unknown UNKNOWN Verified 08/05/20 07:28 gabapentin [From NEURONTIN] Allergy Unknown UNKNOWN Verified 07/28/20 18:08 prolixen Allergy Unknown Unknown Uncoded 07/28/20 16:56 Assessment & Plan Assessment & Plan (1) Schizoaffective disorder: Status: Acute Code(s): F25.9 - Schizoaffective disorder, unspecified Assessment and Plan: start Latuda check ekg anc 3.5 (2) Hypertension: Status: Acute Code(s): I10 - Essential (primary) hypertension (3) Cardiac arrhythmia: Status: Acute Code(s): I49.9 - Cardiac arrhythmia, unspecified Greater than 50% of the session was spent on counseling and/or coordination of care
[2020-10-12 06:00] VITALS: BP 127/72; PULSE 71; RESP 20; TEMP 36.2; O2SAT 97
--- NOTE | 2020-10-12 08:00 | ECG_ITS ---
Test Reason : CK QT SOB Blood Pressure : / mmHG Vent. Rate : 090 BPM Atrial Rate : 090 BPM P-R Int : 164 ms QRS Dur : 104 ms QT Int : 406 ms P-R-T Axes : 061 038 191 degrees QTc Int : 496 ms Normal sinus rhythm Left ventricular hypertrophy with repolarization abnormality Prolonged QT Abnormal ECG When compared with ECG of 16-SEP-2020 10:59, No significant change was found Referred By: Rocael Pacheco Electronically Signed By:Javier Bah
[2020-10-12] MEDS: Docusate Sodium 100 MG CAPSULE PO ×2 (08:46→20:32)
[2020-10-12] MEDS: Cholecalciferol (Vitamin D3) 25 MCG TABLET PO (08:46)
[2020-10-12] MEDS: Paliperidone ER 6 MG TAB.ER.24 PO (08:46)
[2020-10-12] MEDS: Aspirin 81 MG TAB.CHEW PO (08:47)
[2020-10-12] MEDS: Divalproex Sodium ER 250 MG TAB.ER.24H 1500 MG PO (08:47)
[2020-10-12 08:48] VITALS: BP 127/72; PULSE 71
[2020-10-12] MEDS: Metoprolol Succinate ER 25 MG TAB.ER.24H 37.5 MG PO ×2 (08:48→20:31)
--- NOTE | 2020-10-12 15:24 | HO.PSYCHPN ---
Subjective Subjective Date of Service: 10/12/20 Reason For Visit: Psychosis Subjective Notes: Haines Order and Legal Status (8) Interim History: The patient is flat withdrawn dysphoric less agitated agreeable to getting an EKG today Medication Compliance: Yes Mental Status Exam Mental Status Exam Patient Appearance: Disheveled Patient Orientation: Person and Place Level of Consciousness: Drowsy Patient Behavior: Isolative Mood Description: Apathetic Affect Description: Calm and Withdrawn Patient Cognition Impaired: No Ability to Follow Directions: Fair Speech Pattern: Slurred Hallucinations: None Delusions: Not Present Thought Process: Intact Thought Content: positive for Poverty of Content Depressive Symptoms: Difficulty Concentrating Abnormal Motor Activity Signs and Symptoms: Psychomotor Retardation Judgement: Fair Diagnostics Vital Signs (24Hr): Vital Signs - 24 hr 10/11/20 18:00 10/11/20 20:40 10/12/20 06:00 Temperature 97.7 F 97.1 F Pulse Rate 87 87 71 Respiratory Rate 20 Blood Pressure 111/68 111/68 127/72 Pulse Oximetry 97 10/12/20 08:48 Temperature Pulse Rate 71 Respiratory Rate Blood Pressure 127/72 Pulse Oximetry Body Mass Index 35.4 Labs Results: 10/11/20 11:50 08/26/20 08:11 Labs: Laboratory Results - last 48 hr 10/10/20 10/11/20 10/11/20 20:23 05:15 11:50 WBC 6.0 RBC 4.89 Hgb 13.7 L Hct 42.7 MCV 87.3 MCH 28.0 MCHC 32.1 RDW 14.6 Plt Count 120 L MPV 11.9 Immature Gran % (Auto) 0.5 H Neut % (Auto) 57.6 Lymph % (Auto) 25.8 [place] % (Auto) 14.4 H Eos % (Auto) 1.2 Baso % (Auto) 0.5 Lymph # (Auto) 1.6 [place] # (Auto) 0.9 Eos # (Auto) 0.1 Baso # (Auto) 0.0 Abs Immat Gran (auto) 0.03 Absolute Neuts (auto) 3.5 Absolute Nucleated RBC 0.000 Nucleated RBC % (auto) 0.0 Smear Tech's Comments Not Reportable POC Glucose 112 114 10/11/20 19:01 WBC RBC Hgb Hct MCV MCH MCHC RDW Plt Count MPV Immature Gran % (Auto) Neut % (Auto) Lymph % (Auto) [place] % (Auto) Eos % (Auto) Baso % (Auto) Lymph # (Auto) [place] # (Auto) Eos # (Auto) Baso # (Auto) Abs Immat Gran (auto) Absolute Neuts (auto) Absolute Nucleated RBC Nucleated RBC % (auto) Smear Tech's Comments POC Glucose 122 H Medications Medications Current Medications Generic Name Dose Route Start Last Admin Trade Name Freq PRN Reason Stop Dose Admin Acetaminophen 650 mg 08/26/20 10:22 Acetaminophen 325 Mg Tablet PO Q6H PRN Pain, Mild (Pain Scale 1-3) Albuterol Sulfate 2 puff 08/05/20 19:32 10/09/20 19:32 Albuterol Sulfate 90 Mcg 8 Gm Inhaler INHALE 2 puff DAILY PRN Administration asthma Aspirin 81 mg 08/06/20 09:00 10/12/20 08:47 Aspirin 81 Mg Tab.Chew PO 81 mg DAILY OZZY Administration Atorvastatin Calcium 20 mg 08/05/20 21:00 10/11/20 20:42 Atorvastatin Calcium 20 Mg Tablet PO 20 mg BEDTIME OZZY Administration Clozapine 200 mg 09/06/20 21:00 10/11/20 20:42 Clozapine 100 Mg Tablet PO 200 mg BEDTIME OZZY Administration Clozapine 100 mg 09/30/20 21:00 10/11/20 20:42 Clozapine 100 Mg Tablet PO 100 mg BEDTIME OZZY Administration Divalproex Sodium 1,500 mg 09/07/20 10:15 10/12/20 08:47 Divalproex Sodium Er 250 Mg Tab.Er.24h PO 1,500 mg DAILY OZZY Administration Docusate Sodium 100 mg 08/05/20 21:00 10/12/20 08:46 Docusate Sodium 100 Mg Capsule PO 100 mg BID@0830,2100 OZZY Administration Metoprolol Succinate 37.5 mg 08/05/20 21:00 10/12/20 08:48 Metoprolol Succinate Er 25 Mg Tab.Er.24h PO 37.5 mg BID OZZY Administration Protocol Olanzapine 10 mg 08/22/20 11:41 09/22/20 10:15 Olanzapine 10 Mg Vial IM 10 mg BID PRN Administration Psychosis Olanzapine 10 mg 09/11/20 14:06 09/23/20 14:50 Olanzapine Odt 10 Mg Tab.Rapdis TRANSLINGU 10 mg RQ6H PRN Administration Psychosis Paliperidone 6 mg 09/07/20 09:00 10/12/20 08:46 Paliperidone Er 6 Mg Tab.Er.24 PO 6 mg DAILY OZZY Administration Quetiapine Fumarate 100 mg 08/16/20 22:10 09/20/20 00:39 Quetiapine Fumarate 100 Mg Tablet PO 100 mg BEDTIME PRN Administration Insomnia Topiramate 50 mg 08/05/20 21:00 10/11/20 20:42 Topiramate 25 Mg Tablet PO 50 mg BEDTIME OZZY Administration Vitamin D 25 mcg 08/06/20 09:00 10/12/20 08:46 Cholecalciferol (Vitamin D3) 25 Mcg Tablet PO 25 mcg DAILY OZZY Administration Allergies Allergies Allergy/AdvReac Type Severity Reaction Status Date / Time lithium [[place]] Allergy Severe TOXICITY Verified 07/28/20 18:08 thiothixene Allergy Severe SWELLING Verified 08/05/20 07:28 barium sulfate Allergy Intermediate NAUSEA & Verified 08/05/20 07:28 [BARIUM SULFATE] VOMITING haloperidol Allergy Intermediate MUSCLE Verified 07/28/20 18:08 TENSION IN LEGS benztropine Allergy Unknown benztropine Verified 08/05/20 07:28 mesylate- unknown diphenhydramine Allergy Unknown urinary Verified 08/05/20 07:28 [From Benadryl] retention fluphenazine Allergy Unknown UNKNOWN Verified 08/05/20 07:28 gabapentin [From NEURONTIN] Allergy Unknown UNKNOWN Verified 07/28/20 18:08 prolixen Allergy Unknown Unknown Uncoded 07/28/20 16:56 Assessment & Plan Assessment & Plan (1) Schizoaffective disorder: Status: Acute Code(s): F25.9 - Schizoaffective disorder, unspecified Assessment and Plan: EKG reviewed will try low-dose Latuda monitor EKG (2) [employer] current use of clozapine: Status: Acute Code(s): Z79.899 - Other long term care pharmacist (current) 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 (3) Cardiac arrhythmia: Status: Acute Code(s): I49.9 - Cardiac arrhythmia, unspecified (4) Coronary artery disease: Status: Acute Code(s): I25.10 - Atherosclerotic heart disease of [place] coronary artery without angina pectoris Greater than 50% of the session was spent on counseling and/or coordination of care
[2020-10-12 18:00] VITALS: BP 131/71; PULSE 88; TEMP 36.4
[2020-10-12 20:29] LABS: Glucose, Whole Blood 142 mg/dL (60-115)
[2020-10-12 20:31] VITALS: BP 131/73; PULSE 88
[2020-10-12] MEDS: Topiramate 25 MG TABLET 50 MG PO (20:32)
[2020-10-12] MEDS: cloZAPine 100 MG TABLET 200 MG PO (20:32)
[2020-10-12] MEDS: Atorvastatin Calcium 20 MG TABLET PO (20:32)
[2020-10-12] MEDS: cloZAPine 100 MG TABLET PO (20:32)
[2020-10-13 07:01] LABS: Glucose, Whole Blood 108 mg/dL (60-115)
[2020-10-13] MEDS: Docusate Sodium 100 MG CAPSULE PO ×2 (08:25→21:16)
[2020-10-13] MEDS: Cholecalciferol (Vitamin D3) 25 MCG TABLET PO (08:25)
[2020-10-13] MEDS: Aspirin 81 MG TAB.CHEW PO (08:25)
[2020-10-13 08:26] VITALS: BP 131/73; PULSE 88
[2020-10-13] MEDS: Lurasidone HCl 20 MG TABLET 10 MG PO (08:26)
[2020-10-13] MEDS: Metoprolol Succinate ER 25 MG TAB.ER.24H 37.5 MG PO ×2 (08:26→21:16)
[2020-10-13] MEDS: Paliperidone ER 6 MG TAB.ER.24 PO (08:27)
[2020-10-13] MEDS: Divalproex Sodium ER 250 MG TAB.ER.24H 1500 MG PO (08:27)
--- NOTE | 2020-10-13 19:53 | HO.PSYCHPN ---
Subjective Subjective Date of Service: 10/13/20 Reason For Visit: Psychosis Subjective Notes: Haines Order Interim History: patient appears to have cycle down into a more flat blunted phase. His thinking is somewhat more organized he was agreeable to taking Latuda which she has been on previously and discussed this may more helpful for bipolar depression the patient was also asking in a calm way but the possibility of transitioning to a intermediate setting Medication Compliance: Yes Mental Status Exam Mental Status Exam Narrative: difficult to evaluate hallucinations or delusional material patient blunted with poverty of content denies SI not combative Patient Appearance: Disheveled Patient Orientation: Person and Place Level of Consciousness: Drowsy Patient Behavior: Appropriate, Passive and Isolative Mood Description: Apathetic and Blunted Affect Description: Calm and Withdrawn Patient Cognition Impaired: Yes Ability to Follow Directions: Fair Speech Pattern: Monotone Hallucinations: None Thought Process: Intact Thought Content: positive for Poverty of Content Depressive Symptoms: Difficulty Concentrating Abnormal Motor Activity Signs and Symptoms: Psychomotor Retardation Judgement: Fair Diagnostics Vital Signs (24Hr): Vital Signs - 24 hr 10/12/20 20:31 10/13/20 08:26 Pulse Rate 88 88 Blood Pressure 131/73 131/73 Body Mass Index 35.4 Labs Results: 10/11/20 11:50 08/26/20 08:11 Labs: Laboratory Results - last 48 hr 10/12/20 10/13/20 20:24 06:57 POC Glucose 142 H 108 Medications Medications Current Medications Generic Name Dose Route Start Last Admin Trade Name Freq PRN Reason Stop Dose Admin Acetaminophen 650 mg 08/26/20 10:22 Acetaminophen 325 Mg Tablet PO Q6H PRN Pain, Mild (Pain Scale 1-3) Albuterol Sulfate 2 puff 08/05/20 19:32 10/09/20 19:32 Albuterol Sulfate 90 Mcg 8 Gm Inhaler INHALE 2 puff DAILY PRN Administration asthma Aspirin 81 mg 08/06/20 09:00 10/13/20 08:25 Aspirin 81 Mg Tab.Chew PO 81 mg DAILY OZZY Administration Atorvastatin Calcium 20 mg 08/05/20 21:00 10/12/20 20:32 Atorvastatin Calcium 20 Mg Tablet PO 20 mg BEDTIME OZZY Administration Clozapine 200 mg 09/06/20 21:00 10/12/20 20:32 Clozapine 100 Mg Tablet PO 200 mg BEDTIME OZZY Administration Clozapine 100 mg 09/30/20 21:00 10/12/20 20:32 Clozapine 100 Mg Tablet PO 100 mg BEDTIME OZZY Administration Divalproex Sodium 1,500 mg 09/07/20 10:15 10/13/20 08:27 Divalproex Sodium Er 250 Mg Tab.Er.24h PO 1,500 mg DAILY OZZY Administration Docusate Sodium 100 mg 08/05/20 21:00 10/13/20 08:25 Docusate Sodium 100 Mg Capsule PO 100 mg BID@0830,2100 OZZY Administration Lurasidone HCl 10 mg 10/13/20 09:00 10/13/20 08:26 Lurasidone Hcl 20 Mg Tablet PO 10 mg DAILY OZZY Administration Metoprolol Succinate 37.5 mg 08/05/20 21:00 10/13/20 08:26 Metoprolol Succinate Er 25 Mg Tab.Er.24h PO 37.5 mg BID OZZY Administration Protocol Olanzapine 10 mg 08/22/20 11:41 09/22/20 10:15 Olanzapine 10 Mg Vial IM 10 mg BID PRN Administration Psychosis Olanzapine 10 mg 09/11/20 14:06 09/23/20 14:50 Olanzapine Odt 10 Mg Tab.Rapdis TRANSLINGU 10 mg RQ6H PRN Administration Psychosis Paliperidone 6 mg 09/07/20 09:00 10/13/20 08:27 Paliperidone Er 6 Mg Tab.Er.24 PO 6 mg DAILY OZZY Administration Quetiapine Fumarate 100 mg 08/16/20 22:10 09/20/20 00:39 Quetiapine Fumarate 100 Mg Tablet PO 100 mg BEDTIME PRN Administration Insomnia Topiramate 50 mg 08/05/20 21:00 10/12/20 20:32 Topiramate 25 Mg Tablet PO 50 mg BEDTIME OZZY Administration Vitamin D 25 mcg 08/06/20 09:00 10/13/20 08:25 Cholecalciferol (Vitamin D3) 25 Mcg Tablet PO 25 mcg DAILY OZZY Administration Allergies Allergies Allergy/AdvReac Type Severity Reaction Status Date / Time lithium [[place]] Allergy Severe TOXICITY Verified 07/28/20 18:08 thiothixene Allergy Severe SWELLING Verified 08/05/20 07:28 barium sulfate Allergy Intermediate NAUSEA & Verified 08/05/20 07:28 [BARIUM SULFATE] VOMITING haloperidol Allergy Intermediate MUSCLE Verified 07/28/20 18:08 TENSION IN LEGS benztropine Allergy Unknown benztropine Verified 08/05/20 07:28 mesylate- unknown diphenhydramine Allergy Unknown urinary Verified 08/05/20 07:28 [From Benadryl] retention fluphenazine Allergy Unknown UNKNOWN Verified 08/05/20 07:28 gabapentin [From NEURONTIN] Allergy Unknown UNKNOWN Verified 07/28/20 18:08 prolixen Allergy Unknown Unknown Uncoded 07/28/20 16:56 Assessment & Plan Assessment & Plan (1) Schizoaffective disorder: Status: Acute Code(s): F25.9 - Schizoaffective disorder, unspecified Assessment and Plan: EKG reviewed QTC in the 490 no other acute changes has cycled down will try and lower Depakote monitor response to Latuda both behaviorally and EKG pending clozapine level from October 09 change Depakote to 1250 mg at bedtime change from ER lower [place] to 3 mg cross taper with Latuda (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
[2020-10-13 21:13] LABS: Glucose, Whole Blood 136 mg/dL (60-115)
[2020-10-13] MEDS: Topiramate 25 MG TABLET 50 MG PO (21:15)
[2020-10-13 21:16] VITALS: BP 136/76; PULSE 83
[2020-10-13] MEDS: Atorvastatin Calcium 20 MG TABLET PO (21:16)
[2020-10-13] MEDS: cloZAPine 100 MG TABLET PO (21:16)
[2020-10-13] MEDS: cloZAPine 100 MG TABLET 200 MG PO (21:16)
[2020-10-14 06:00] VITALS: BP 127/78; PULSE 78; TEMP 36.3; O2SAT 96
[2020-10-14 06:35] LABS: Glucose, Whole Blood 100 mg/dL (60-115)
[2020-10-14 07:00] VITALS: BMI 35.2
[2020-10-14] MEDS: Lurasidone HCl 20 MG TABLET 10 MG PO (08:46)
[2020-10-14] MEDS: Docusate Sodium 100 MG CAPSULE PO ×2 (08:47→20:41)
[2020-10-14] MEDS: Paliperidone ER 6 MG TAB.ER.24 3 MG PO (08:47)
[2020-10-14 08:48] VITALS: BP 127/78; PULSE 78
[2020-10-14] MEDS: Metoprolol Succinate ER 25 MG TAB.ER.24H 37.5 MG PO ×2 (08:48→20:40)
[2020-10-14] MEDS: Aspirin 81 MG TAB.CHEW PO (08:49)
[2020-10-14] MEDS: Cholecalciferol (Vitamin D3) 25 MCG TABLET PO (08:49)
[2020-10-14 10:35] VITALS: BMI 23.1
[2020-10-14 18:00] VITALS: BP 136/63; PULSE 77; TEMP 36.6
--- NOTE | 2020-10-14 19:57 | P.PNPSI_ITS ---
Subjective Subjective Date of Service: 10/14/20 Reason For Visit: Psychosis Subjective Notes: Haines Order Interim History: patient continues to not be aggressive but remains withdrawn and flat. Limited verbally he is asking about the possibility of a alf s etting he is on a waiting list for [facility] he is aware Medication Compliance: Yes Side effects from medications: Yes Mental Status Exam Mental Status Exam Patient Appearance: Disheveled Level of Consciousness: Lethargic Patient Behavior: Appropriate Mood Description: Constricted and Flat Affect Description: Apathetic Thought Process: Distracted and Slowed Thinking Thought Content: positive for Tangential Judgement: Fair Judgement and Insight: improved impulse control Diagnostics Vital Signs (24Hr): Vital Signs - 24 hr 10/13/20 21:16 10/14/20 06:00 10/14/20 08:48 Temperature 97.4 F Pulse Rate 83 78 78 Blood Pressure 136/76 127/78 127/78 Pulse Oximetry 96 Body Mass Index 23.1 Labs Results: 10/11/20 11:50 08/26/20 08:11 Labs: Laboratory Results - last 48 hr 10/12/20 10/13/20 10/13/20 20:24 06:57 21:07 POC Glucose 142 H 108 136 H 10/14/20 06:32 POC Glucose 100 Medications Medications Current Medications Generic Name Dose Route Start Last Admin Trade Name Felipeq PRN Reason Stop Dose Admin Acetaminophen 650 mg 08/26/20 10:22 Acetaminophen 325 Mg Tablet PO Q6H PRN Pain, Mild (Pain Scale 1-3) Albuterol Sulfate 2 puff 08/05/20 19:32 10/09/20 19:32 Albuterol Sulfate 90 Mcg 8 Gm Inhaler INHALE 2 puff DAILY PRN Administration asthma Aspirin 81 mg 08/06/20 09:00 10/14/20 08:49 Aspirin 81 Mg Tab.Chew PO 81 mg DAILY OZZY Administration Atorvastatin Calcium 20 mg 08/05/20 21:00 10/13/20 21:16 Atorvastatin Calcium 20 Mg Tablet PO 20 mg BEDTIME OZZY Administration Clozapine 200 mg 09/06/20 21:00 10/13/20 21:16 Clozapine 100 Mg Tablet PO 200 mg BEDTIME OZZY Administration Clozapine 100 mg 09/30/20 21:00 10/13/20 21:16 Clozapine 100 Mg Tablet PO 100 mg BEDTIME OZZY Administration Divalproex Sodium 1,250 mg 10/14/20 21:00 Divalproex Sodium 250 Mg Tablet.Dr PO BEDTIME OZZY Docusate Sodium 100 mg 08/05/20 21:00 10/14/20 08:47 Docusate Sodium 100 Mg Capsule PO 100 mg BID@0830,2100 OZZY Administration Lurasidone HCl 10 mg 10/13/20 09:00 10/14/20 08:46 Lurasidone Hcl 20 Mg Tablet PO 10 mg DAILY OZZY Administration Metoprolol Succinate 37.5 mg 08/05/20 21:00 10/14/20 08:48 Metoprolol Succinate Er 25 Mg Tab.Er.24h PO 37.5 mg BID OZZY Administration Protocol Olanzapine 10 mg 08/22/20 11:41 09/22/20 10:15 Olanzapine 10 Mg Vial IM 10 mg BID PRN Administration Psychosis Olanzapine 10 mg 09/11/20 14:06 09/23/20 14:50 Olanzapine Odt 10 Mg Tab.Rapdis TRANSLINGU 10 mg RQ6H PRN Administration Psychosis Paliperidone 3 mg 10/14/20 09:00 10/14/20 08:47 Paliperidone Er 6 Mg Tab.Er.24 PO 3 mg DAILY OZZY Administration Quetiapine Fumarate 100 mg 08/16/20 22:10 09/20/20 00:39 Quetiapine Fumarate 100 Mg Tablet PO 100 mg BEDTIME PRN Administration Insomnia Topiramate 50 mg 08/05/20 21:00 10/13/20 21:15 Topiramate 25 Mg Tablet PO 50 mg BEDTIME OZZY Administration Vitamin D 25 mcg 08/06/20 09:00 10/14/20 08:49 Cholecalciferol (Vitamin D3) 25 Mcg Tablet PO 25 mcg DAILY OZZY Administration Allergies Allergies Allergy/AdvReac Type Severity Reaction Status Date / Time lithium [[place]] Allergy Severe TOXICITY Verified 07/28/20 18:08 thiothixene Allergy Severe SWELLING Verified 08/05/20 07:28 barium sulfate Allergy Intermediate NAUSEA & Verified 08/05/20 07:28 [BARIUM SULFATE] VOMITING haloperidol Allergy Intermediate MUSCLE Verified 07/28/20 18:08 TENSION IN LEGS benztropine Allergy Unknown benztropine Verified 08/05/20 07:28 mesylate- unknown diphenhydramine Allergy Unknown urinary Verified 08/05/20 07:28 [From Benadryl] retention fluphenazine Allergy Unknown UNKNOWN Verified 08/05/20 07:28 gabapentin [From NEURONTIN] Allergy Unknown UNKNOWN Verified 07/28/20 18:08 prolixen Allergy Unknown Unknown Uncoded 07/28/20 16:56 Assessment & Plan Assessment & Plan (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
[2020-10-14 20:35] LABS: Glucose, Whole Blood 153 mg/dL (60-115)
[2020-10-14] MEDS: cloZAPine 100 MG TABLET PO (20:41)
[2020-10-14] MEDS: cloZAPine 100 MG TABLET 200 MG PO (20:41)
[2020-10-14] MEDS: Atorvastatin Calcium 20 MG TABLET PO (20:41)
[2020-10-14] MEDS: Topiramate 25 MG TABLET 50 MG PO (20:42)
[2020-10-14] MEDS: Divalproex Sodium 250 MG TABLET.DR 1250 MG PO (20:42)
[2020-10-14 23:57] LABS: Clozapine (Clozaril) 355 mcg/L; Norclozapine 128 mcg/L (25-400)
[2020-10-15 06:00] VITALS: BP 171/86; PULSE 85; TEMP 37; O2SAT 95
[2020-10-15 08:24] VITALS: BP 171/86; PULSE 85
[2020-10-15] MEDS: Metoprolol Succinate ER 25 MG TAB.ER.24H 37.5 MG PO ×2 (08:24→20:29)
[2020-10-15] MEDS: Paliperidone ER 6 MG TAB.ER.24 3 MG PO (08:25)
[2020-10-15] MEDS: Cholecalciferol (Vitamin D3) 25 MCG TABLET PO (08:26)
[2020-10-15] MEDS: Lurasidone HCl 20 MG TABLET 10 MG PO (08:26)
[2020-10-15] MEDS: Aspirin 81 MG TAB.CHEW PO (08:27)
[2020-10-15] MEDS: Docusate Sodium 100 MG CAPSULE PO ×2 (08:27→20:31)
--- NOTE | 2020-10-15 10:40 | P.PNPSI_ITS ---
Documented by User: Rocael Pacheco MD 10/18/20 21:34 Subjective Subjective Date of Service: 10/15/20 Reason For Visit: Psychosis Subjective Notes: Haines Order Interim History: Patient continues to be more stable but somewhat lethargic during the day Medication Compliance: Yes Side effects from medications: Yes Attending Groups: No Mental Status Exam Mental Status Exam Patient Appearance: Disheveled Level of Consciousness: Lethargic Patient Behavior: Appropriate Mood Description: Constricted and Flat Affect Description: Apathetic Thought Process: Distracted and Slowed Thinking Thought Content: positive for Tangential Judgement: Fair Judgement and Insight: improved impulse control Diagnostics Vital Signs (24Hr): Vital Signs - 24 hr 10/14/20 18:00 10/15/20 06:00 10/15/20 08:24 Temperature 97.8 F 98.6 F Pulse Rate 77 85 85 Blood Pressure 136/63 171/86 H 171/86 H Pulse Oximetry 95 Body Mass Index 23.1 Labs 11/04/20 07:52 11/04/20 07:52 Labs: Laboratory Results - last 48 hr 10/09/20 10/13/20 10/14/20 09:39 21:07 06:32 POC Glucose 136 H 100 Clozapine 355 Norclozapine 128 10/14/20 20:26 POC Glucose 153 H Clozapine Norclozapine Medications Medications Current Medications Generic Name Dose Route Start Last Admin Trade Name Freq PRN Reason Stop Dose Admin Acetaminophen 650 mg 08/26/20 10:22 Acetaminophen 325 Mg Tablet PO Q6H PRN Pain, Mild (Pain Scale 1-3) Albuterol Sulfate 2 puff 08/05/20 19:32 10/09/20 19:32 Albuterol Sulfate 90 Mcg 8 Gm Inhaler INHALE 2 puff DAILY PRN Administration asthma Aspirin 81 mg 08/06/20 09:00 10/15/20 08:27 Aspirin 81 Mg Tab.Chew PO 81 mg DAILY OZZY Administration Atorvastatin Calcium 20 mg 08/05/20 21:00 10/14/20 20:41 Atorvastatin Calcium 20 Mg Tablet PO 20 mg BEDTIME OZZY Administration Clozapine 200 mg 09/06/20 21:00 10/14/20 20:41 Clozapine 100 Mg Tablet PO 200 mg BEDTIME OZZY Administration Clozapine 100 mg 09/30/20 21:00 10/14/20 20:41 Clozapine 100 Mg Tablet PO 100 mg BEDTIME OZZY Administration Divalproex Sodium 1,250 mg 10/14/20 21:00 10/14/20 20:42 Divalproex Sodium 250 Mg Tablet.Dr PO 1,250 mg BEDTIME OZZY Administration Docusate Sodium 100 mg 08/05/20 21:00 10/15/20 08:27 Docusate Sodium 100 Mg Capsule PO 100 mg BID@0830,2100 OZZY Administration Lurasidone HCl 10 mg 10/13/20 09:00 10/15/20 08:26 Lurasidone Hcl 20 Mg Tablet PO 10 mg DAILY OZZY Administration Metoprolol Succinate 37.5 mg 08/05/20 21:00 10/15/20 08:24 Metoprolol Succinate Er 25 Mg Tab.Er.24h PO 37.5 mg BID OZZY Administration Protocol Olanzapine 10 mg 08/22/20 11:41 09/22/20 10:15 Olanzapine 10 Mg Vial IM 10 mg BID PRN Administration Psychosis Olanzapine 10 mg 09/11/20 14:06 09/23/20 14:50 Olanzapine Odt 10 Mg Tab.Rapdis TRANSLINGU 10 mg RQ6H PRN Administration Psychosis Paliperidone 3 mg 10/14/20 09:00 10/15/20 08:25 Paliperidone Er 6 Mg Tab.Er.24 PO 3 mg DAILY OZZY Administration Quetiapine Fumarate 100 mg 08/16/20 22:10 09/20/20 00:39 Quetiapine Fumarate 100 Mg Tablet PO 100 mg BEDTIME PRN Administration Insomnia Topiramate 50 mg 08/05/20 21:00 10/14/20 20:42 Topiramate 25 Mg Tablet PO 50 mg BEDTIME OZZY Administration Vitamin D 25 mcg 08/06/20 09:00 10/15/20 08:26 Cholecalciferol (Vitamin D3) 25 Mcg Tablet PO 25 mcg DAILY OZZY Administration Allergies Allergies Allergy/AdvReac Type Severity Reaction Status Date / Time lithium [[place]] Allergy Severe TOXICITY Verified 07/28/20 18:08 thiothixene Allergy Severe SWELLING Verified 08/05/20 07:28 barium sulfate Allergy Intermediate NAUSEA & Verified 08/05/20 07:28 [BARIUM SULFATE] VOMITING haloperidol Allergy Intermediate MUSCLE Verified 07/28/20 18:08 TENSION IN LEGS benztropine Allergy Unknown benztropine Verified 08/05/20 07:28 mesylate- unknown diphenhydramine Allergy Unknown urinary Verified 08/05/20 07:28 [From Benadryl] retention fluphenazine Allergy Unknown UNKNOWN Verified 08/05/20 07:28 gabapentin [From NEURONTIN] Allergy Unknown UNKNOWN Verified 07/28/20 18:08 prolixen Allergy Unknown Unknown Uncoded 07/28/20 16:56 Assessment & Plan Assessment & Plan (1) Schizoaffective disorder: Status: Acute Code(s): F25.9 - Schizoaffective disorder, unspecified Assessment and Plan: patient has been increasingly stable some sedation will try and decrease clozapine 275 lower depakote 1000 mg hs monitor response (2) Cardiac arrhythmia: Status: Acute Code(s): I49.9 - Cardiac arrhythmia, unspecified Greater than 50% of the session was spent on counseling and/or coordination of care Documented by User: Geraldo Garcia MD 06/01/23 20:47 Subjective Subjective Date of Service: 06/01/23 Reason For Visit: Psychosis Diagnostics Labs 11/04/20 07:52 11/04/20 07:52 Assessment & Plan Assessment & Plan (1) Schizoaffective disorder: Status: Acute Code(s): F25.9 - Schizoaffective disorder, unspecified (2) Cardiac arrhythmia: Status: Acute Code(s): I49.9 - Cardiac arrhythmia, unspecified
[2020-10-15 18:00] VITALS: BP 153/75; PULSE 80; TEMP 36.7
[2020-10-15 20:18] LABS: Glucose, Whole Blood 204 mg/dL (60-115)
[2020-10-15 20:29] VITALS: BP 153/75; PULSE 80
[2020-10-15] MEDS: cloZAPine 100 MG TABLET PO (20:30)
[2020-10-15] MEDS: cloZAPine 100 MG TABLET 200 MG PO (20:30)
[2020-10-15] MEDS: Divalproex Sodium 250 MG TABLET.DR 1250 MG PO (20:32)
[2020-10-15] MEDS: Atorvastatin Calcium 20 MG TABLET PO (20:33)
[2020-10-15] MEDS: Topiramate 25 MG TABLET 50 MG PO (20:34)
[2020-10-16 04:42] LABS: Glucose, Whole Blood 120 mg/dL (60-115)
[2020-10-16 06:00] VITALS: BP 138/88; PULSE 88; RESP 16; TEMP 37.1
[2020-10-16] MEDS: Aspirin 81 MG TAB.CHEW PO (08:45)
[2020-10-16] MEDS: Docusate Sodium 100 MG CAPSULE PO ×2 (08:45→20:09)
[2020-10-16 08:46] VITALS: BP 138/87; PULSE 88
[2020-10-16] MEDS: Metoprolol Succinate ER 25 MG TAB.ER.24H 37.5 MG PO ×2 (08:46→20:08)
[2020-10-16] MEDS: Lurasidone HCl 20 MG TABLET 10 MG PO (08:46)
[2020-10-16] MEDS: Cholecalciferol (Vitamin D3) 25 MCG TABLET PO (08:46)
[2020-10-16] MEDS: Paliperidone ER 6 MG TAB.ER.24 3 MG PO (08:48)
--- NOTE | 2020-10-16 17:43 | HO.PSYCHPN ---
Subjective Subjective Date of Service: 10/16/20 Reason For Visit: Psychosis Subjective Notes: Other Interim History: Chart reviewed; case discussed with nursing staff Vitals reviewed Labs reviewed: no new labs Pt lying Pt says he's good. He reports that he's been on unit for 5 months but that his goal is to get back to the community [facility] a [facility]. When asked how the process is going he says im doing what i can... Nutritional Services Cook tried to get patient to elaborate but he repeated the same. No other complaints; denies medication side-effects. Medication Compliance: Yes Side effects from medications: No Mental Status Exam Mental Status Exam Patient Appearance: Disheveled and Unkempt Patient Orientation: Person, Place, Time and Situation Level of Consciousness: Awake and Drowsy Patient Behavior: Passive Mood Description: Calm Affect Description: Blunted Ability to Follow Directions: Fair Speech Pattern: Monotone Delusions: Not Present Thought Process: Goal Oriented and Slowed Thinking Thought Content: positive for [place] Judgement: Fair Diagnostics Vital Signs (24Hr): Vital Signs - 24 hr 10/15/20 18:00 10/15/20 20:29 10/16/20 08:46 Temperature 98.0 F Pulse Rate 80 80 88 Blood Pressure 153/75 H 153/75 H 138/87 Body Mass Index 23.1 Labs Results: 10/11/20 11:50 08/26/20 08:11 Labs: Laboratory Results - last 48 hr 10/09/20 10/14/20 10/15/20 09:39 20:26 20:14 POC Glucose 153 H 204 H Clozapine 355 Norclozapine 128 10/16/20 04:38 POC Glucose 120 H Clozapine Norclozapine Medications Medications Current Medications Generic Name Dose Route Start Last Admin Trade Name Freq PRN Reason Stop Dose Admin Acetaminophen 650 mg 08/26/20 10:22 Acetaminophen 325 Mg Tablet PO Q6H PRN Pain, Mild (Pain Scale 1-3) Albuterol Sulfate 2 puff 08/05/20 19:32 10/09/20 19:32 Albuterol Sulfate 90 Mcg 8 Gm Inhaler INHALE 2 puff DAILY PRN Administration asthma Aspirin 81 mg 08/06/20 09:00 10/16/20 08:45 Aspirin 81 Mg Tab.Chew PO 81 mg DAILY OZZY Administration Atorvastatin Calcium 20 mg 08/05/20 21:00 10/15/20 20:33 Atorvastatin Calcium 20 Mg Tablet PO 20 mg BEDTIME OZZY Administration Clozapine 200 mg 09/06/20 21:00 10/15/20 20:30 Clozapine 100 Mg Tablet PO 200 mg BEDTIME OZZY Administration Clozapine 75 mg 10/15/20 21:00 10/15/20 22:07 Clozapine 25 Mg Tablet PO Not Given BEDTIME OZZY Divalproex Sodium 1,000 mg 10/15/20 21:00 10/15/20 22:07 Divalproex Sodium 500 Mg Tablet.Dr PO Not Given BEDTIME OZZY Docusate Sodium 100 mg 08/05/20 21:00 10/16/20 08:45 Docusate Sodium 100 Mg Capsule PO 100 mg BID@0830,2100 OZZY Administration Lurasidone HCl 10 mg 10/13/20 09:00 10/16/20 08:46 Lurasidone Hcl 20 Mg Tablet PO 10 mg DAILY OZZY Administration Metoprolol Succinate 37.5 mg 08/05/20 21:00 10/16/20 08:46 Metoprolol Succinate Er 25 Mg Tab.Er.24h PO 37.5 mg BID OZZY Administration Protocol Olanzapine 10 mg 08/22/20 11:41 09/22/20 10:15 Olanzapine 10 Mg Vial IM 10 mg BID PRN Administration Psychosis Olanzapine 10 mg 09/11/20 14:06 09/23/20 14:50 Olanzapine Odt 10 Mg Tab.Rapdis TRANSLINGU 10 mg RQ6H PRN Administration Psychosis Paliperidone 3 mg 10/14/20 09:00 10/16/20 08:48 Paliperidone Er 6 Mg Tab.Er.24 PO 3 mg DAILY OZZY Administration Quetiapine Fumarate 100 mg 08/16/20 22:10 09/20/20 00:39 Quetiapine Fumarate 100 Mg Tablet PO 100 mg BEDTIME PRN Administration Insomnia Topiramate 50 mg 08/05/20 21:00 10/15/20 20:34 Topiramate 25 Mg Tablet PO 50 mg BEDTIME OZZY Administration Vitamin D 25 mcg 08/06/20 09:00 10/16/20 08:46 Cholecalciferol (Vitamin D3) 25 Mcg Tablet PO 25 mcg DAILY OZZY Administration Allergies Allergies Allergy/AdvReac Type Severity Reaction Status Date / Time lithium [[place]] Allergy Severe TOXICITY Verified 07/28/20 18:08 thiothixene Allergy Severe SWELLING Verified 08/05/20 07:28 barium sulfate Allergy Intermediate NAUSEA & Verified 08/05/20 07:28 [BARIUM SULFATE] VOMITING haloperidol Allergy Intermediate MUSCLE Verified 07/28/20 18:08 TENSION IN LEGS benztropine Allergy Unknown benztropine Verified 08/05/20 07:28 mesylate- unknown diphenhydramine Allergy Unknown urinary Verified 08/05/20 07:28 [From Benadryl] retention fluphenazine Allergy Unknown UNKNOWN Verified 08/05/20 07:28 gabapentin [From NEURONTIN] Allergy Unknown UNKNOWN Verified 07/28/20 18:08 prolixen Allergy Unknown Unknown Uncoded 07/28/20 16:56 Assessment & Plan (1) Schizoaffective disorder: Assessment and Plan: no change in treatment plan at this time according to prior note: patient has been increasingly stable some sedation will try and decrease clozapine 275 lower depakote 1000 mg hs (2) Cardiac arrhythmia : Greater than 50% of the session was spent on counseling and/or coordination of care
[2020-10-16 18:00] VITALS: BP 140/88; PULSE 90; RESP 16; TEMP 37
[2020-10-16 20:08] VITALS: BP 138/88; PULSE 100
[2020-10-16] MEDS: cloZAPine 100 MG TABLET 200 MG PO (20:10)
[2020-10-16] MEDS: cloZAPine 25 MG TABLET 75 MG PO (20:11)
[2020-10-16] MEDS: Atorvastatin Calcium 20 MG TABLET PO (20:11)
[2020-10-16] MEDS: Topiramate 25 MG TABLET 50 MG PO (20:13)
[2020-10-16] MEDS: Divalproex Sodium 500 MG TABLET.DR 1000 MG PO (20:27)
[2020-10-17 06:00] VITALS: BP 138/88; PULSE 88; RESP 16; TEMP 36.9; O2SAT 97
[2020-10-17] MEDS: Docusate Sodium 100 MG CAPSULE PO ×2 (08:35→20:33)
[2020-10-17] MEDS: Paliperidone ER 6 MG TAB.ER.24 3 MG PO (08:35)
[2020-10-17] MEDS: Cholecalciferol (Vitamin D3) 25 MCG TABLET PO (08:37)
[2020-10-17] MEDS: Lurasidone HCl 20 MG TABLET 10 MG PO (08:37)
[2020-10-17] MEDS: Aspirin 81 MG TAB.CHEW PO (08:37)
[2020-10-17 08:38] VITALS: BP 136/88; PULSE 88
[2020-10-17] MEDS: Metoprolol Succinate ER 25 MG TAB.ER.24H 37.5 MG PO ×2 (08:38→20:32)
--- NOTE | 2020-10-17 13:36 | P.PNPSI_ITS ---
Subjective Subjective Date of Service: 10/17/20 Reason For Visit: Psychosis Interim History: pt seen; chart reviewed Vitals reviewed: WNL Pt remains stable and at baseline; mostly lying in bed; no behavioral incidents; taking meds. Medication Compliance: Yes Mental Status Exam Mental Status Exam Patient Appearance: Disheveled Patient Orientation: Person, Place and Situation Level of Consciousness: Awake Patient Behavior: Passive Mood Description: Withdrawn Affect Description: Withdrawn Ability to Follow Directions: Fair Speech Pattern: Clear and Delayed Thought Process: Goal Oriented Thought Content: positive for [place] of Content Judgement and Insight: taking meds Diagnostics Vital Signs (24Hr): Vital Signs - 24 hr 10/16/20 18:00 10/16/20 20:08 10/17/20 06:00 Temperature 98.6 F 98.4 F Pulse Rate 90 100 88 Respiratory Rate 16 16 Blood Pressure 140/88 H 138/88 138/88 Pulse Oximetry 97 10/17/20 08:38 Temperature Pulse Rate 88 Respiratory Rate Blood Pressure 136/88 Pulse Oximetry Body Mass Index 23.1 Labs Results: 10/11/20 11:50 08/26/20 08:11 Labs: Laboratory Results - last 48 hr 10/15/20 10/16/20 20:14 04:38 POC Glucose 204 H 120 H Medications Medications Current Medications Generic Name Dose Route Start Last Admin Trade Name Felipeq PRN Reason Stop Dose Admin Acetaminophen 650 mg 08/26/20 10:22 Acetaminophen 325 Mg Tablet PO Q6H PRN Pain, Mild (Pain Scale 1-3) Albuterol Sulfate 2 puff 08/05/20 19:32 10/09/20 19:32 Albuterol Sulfate 90 Mcg 8 Gm Inhaler INHALE 2 puff DAILY PRN Administration asthma Aspirin 81 mg 08/06/20 09:00 10/17/20 08:37 Aspirin 81 Mg Tab.Chew PO 81 mg DAILY OZZY Administration Atorvastatin Calcium 20 mg 08/05/20 21:00 10/16/20 20:11 Atorvastatin Calcium 20 Mg Tablet PO 20 mg BEDTIME OZZY Administration Clozapine 200 mg 09/06/20 21:00 10/16/20 20:10 Clozapine 100 Mg Tablet PO 200 mg BEDTIME OZZY Administration Clozapine 75 mg 10/15/20 21:00 10/16/20 20:11 Clozapine 25 Mg Tablet PO 75 mg BEDTIME OZZY Administration Divalproex Sodium 1,000 mg 10/15/20 21:00 10/16/20 20:27 Divalproex Sodium 500 Mg Tablet.Dr PO 1,000 mg BEDTIME OZZY Administration Docusate Sodium 100 mg 08/05/20 21:00 10/17/20 08:35 Docusate Sodium 100 Mg Capsule PO 100 mg BID@0830,2100 OZZY Administration Lurasidone HCl 10 mg 10/13/20 09:00 10/17/20 08:37 Lurasidone Hcl 20 Mg Tablet PO 10 mg DAILY OZZY Administration Metoprolol Succinate 37.5 mg 08/05/20 21:00 10/17/20 08:38 Metoprolol Succinate Er 25 Mg Tab.Er.24h PO 37.5 mg BID OZZY Administration Protocol Olanzapine 10 mg 08/22/20 11:41 09/22/20 10:15 Olanzapine 10 Mg Vial IM 10 mg BID PRN Administration Psychosis Olanzapine 10 mg 09/11/20 14:06 09/23/20 14:50 Olanzapine Odt 10 Mg Tab.Rapdis TRANSLINGU 10 mg RQ6H PRN Administration Psychosis Paliperidone 3 mg 10/14/20 09:00 10/17/20 08:35 Paliperidone Er 6 Mg Tab.Er.24 PO 3 mg DAILY OZZY Administration Quetiapine Fumarate 100 mg 08/16/20 22:10 09/20/20 00:39 Quetiapine Fumarate 100 Mg Tablet PO 100 mg BEDTIME PRN Administration Insomnia Topiramate 50 mg 08/05/20 21:00 10/16/20 20:13 Topiramate 25 Mg Tablet PO 50 mg BEDTIME OZZY Administration Vitamin D 25 mcg 08/06/20 09:00 10/17/20 08:37 Cholecalciferol (Vitamin D3) 25 Mcg Tablet PO 25 mcg DAILY OZZY Administration Allergies Allergies Allergy/AdvReac Type Severity Reaction Status Date / Time lithium [[place]] Allergy Severe TOXICITY Verified 07/28/20 18:08 thiothixene Allergy Severe SWELLING Verified 08/05/20 07:28 barium sulfate Allergy Intermediate NAUSEA & Verified 08/05/20 07:28 [BARIUM SULFATE] VOMITING haloperidol Allergy Intermediate MUSCLE Verified 07/28/20 18:08 TENSION IN LEGS benztropine Allergy Unknown benztropine Verified 08/05/20 07:28 mesylate- unknown diphenhydramine Allergy Unknown urinary Verified 08/05/20 07:28 [From Benadryl] retention fluphenazine Allergy Unknown UNKNOWN Verified 08/05/20 07:28 gabapentin [From NEURONTIN] Allergy Unknown UNKNOWN Verified 07/28/20 18:08 prolixen Allergy Unknown Unknown Uncoded 07/28/20 16:56 Assessment & Plan (1) Schizoaffective disorder: Assessment and Plan: Pt stable No changes made; continue with primary team tx plan according to prior note: patient has been increasingly stable some sedation will try and decrease clozapine 275 lower depakote 1000 mg hs (2) Cardiac arrhythmia Greater than 50% of the session was spent on counseling and/or coordination of care
[2020-10-17 18:00] VITALS: BP 118/60; PULSE 78; TEMP 36.6
[2020-10-17 20:32] VITALS: BP 118/60; PULSE 78
[2020-10-17] MEDS: Divalproex Sodium 500 MG TABLET.DR 1000 MG PO (20:33)
[2020-10-17] MEDS: cloZAPine 100 MG TABLET 200 MG PO (20:33)
[2020-10-17] MEDS: Topiramate 25 MG TABLET 50 MG PO (20:33)
[2020-10-17] MEDS: Atorvastatin Calcium 20 MG TABLET PO (20:33)
[2020-10-17] MEDS: cloZAPine 25 MG TABLET 75 MG PO (20:33)
[2020-10-17 21:34] LABS: Glucose, Whole Blood 170 mg/dL (60-115)
[2020-10-18 06:05] VITALS: BP 140/76; PULSE 71; RESP 18; TEMP 36.4; O2SAT 96
[2020-10-18 09:21] VITALS: BP 140/76; PULSE 71
[2020-10-18] MEDS: Metoprolol Succinate ER 25 MG TAB.ER.24H 37.5 MG PO ×2 (09:21→20:36)
[2020-10-18] MEDS: Paliperidone ER 6 MG TAB.ER.24 3 MG PO (09:22)
[2020-10-18] MEDS: Docusate Sodium 100 MG CAPSULE PO ×2 (09:23→20:36)
[2020-10-18] MEDS: Lurasidone HCl 20 MG TABLET 10 MG PO (09:24)
[2020-10-18] MEDS: Aspirin 81 MG TAB.CHEW PO (09:25)
[2020-10-18] MEDS: Cholecalciferol (Vitamin D3) 25 MCG TABLET PO (09:57)
[2020-10-18 18:00] VITALS: BP 131/80; PULSE 75; TEMP 36.9
[2020-10-18 20:18] LABS: Glucose, Whole Blood 133 mg/dL (60-115)
[2020-10-18] MEDS: cloZAPine 100 MG TABLET 200 MG PO (20:35)
[2020-10-18] MEDS: cloZAPine 25 MG TABLET 75 MG PO (20:35)
[2020-10-18] MEDS: Divalproex Sodium 500 MG TABLET.DR 1000 MG PO (20:35)
[2020-10-18 20:36] VITALS: BP 131/80; PULSE 75
[2020-10-18] MEDS: Topiramate 25 MG TABLET 50 MG PO (20:36)
[2020-10-18] MEDS: Atorvastatin Calcium 20 MG TABLET PO (20:36)
--- NOTE | 2020-10-18 21:51 | HO.PSYCHPN ---
Subjective Subjective Date of Service: 10/18/20 Reason For Visit: Psychosis Subjective Notes: [place] Order Interim History: patient isolated withdrawn spending much of his time in his room denies feeling depressed no clear change with flowering clozapine Medication Compliance: Yes Mental Status Exam Mental Status Exam Patient Appearance: Disheveled Patient Orientation: Person, Place and Situation Level of Consciousness: Awake Patient Behavior: Passive Mood Description: Withdrawn Affect Description: Withdrawn Ability to Follow Directions: Fair Speech Pattern: Clear and Delayed Thought Process: Goal Oriented Thought Content: positive for Poverty of Content Judgement and Insight: taking meds Diagnostics Vital Signs (24Hr): Vital Signs - 24 hr 10/18/20 06:05 10/18/20 09:21 10/18/20 18:00 Temperature 97.5 F 98.5 F Pulse Rate 71 71 75 Respiratory Rate 18 Blood Pressure 140/76 H 140/76 H 131/80 Pulse Oximetry 96 10/18/20 20:36 Temperature Pulse Rate 75 Respiratory Rate Blood Pressure 131/80 Pulse Oximetry Body Mass Index 23.1 Labs Results: 10/11/20 11:50 08/26/20 08:11 Labs: Laboratory Results - last 48 hr 10/17/20 10/18/20 20:22 20:11 POC Glucose 170 H 133 H Medications Medications Current Medications Generic Name Dose Route Start Last Admin Trade Name Freq PRN Reason Stop Dose Admin Acetaminophen 650 mg 08/26/20 10:22 Acetaminophen 325 Mg Tablet PO Q6H PRN Pain, Mild (Pain Scale 1-3) Albuterol Sulfate 2 puff 08/05/20 19:32 10/09/20 19:32 Albuterol Sulfate 90 Mcg 8 Gm Inhaler INHALE 2 puff DAILY PRN Administration asthma Aspirin 81 mg 08/06/20 09:00 10/18/20 09:25 Aspirin 81 Mg Tab.Chew PO 81 mg DAILY OZZY Administration Atorvastatin Calcium 20 mg 08/05/20 21:00 10/18/20 20:36 Atorvastatin Calcium 20 Mg Tablet PO 20 mg BEDTIME OZZY Administration Clozapine 200 mg 09/06/20 21:00 10/18/20 20:35 Clozapine 100 Mg Tablet PO 200 mg BEDTIME OZZY Administration Clozapine 75 mg 10/15/20 21:00 10/18/20 20:35 Clozapine 25 Mg Tablet PO 75 mg BEDTIME OZZY Administration Divalproex Sodium 1,000 mg 10/15/20 21:00 10/18/20 20:35 Divalproex Sodium 500 Mg Tablet.Dr PO 1,000 mg BEDTIME OZZY Administration Docusate Sodium 100 mg 08/05/20 21:00 10/18/20 20:36 Docusate Sodium 100 Mg Capsule PO 100 mg BID@0830,2100 OZZY Administration Lurasidone HCl 10 mg 10/13/20 09:00 10/18/20 09:24 Lurasidone Hcl 20 Mg Tablet PO 10 mg DAILY OZZY Administration Metoprolol Succinate 37.5 mg 08/05/20 21:00 10/18/20 20:36 Metoprolol Succinate Er 25 Mg Tab.Er.24h PO 37.5 mg BID OZZY Administration Protocol Olanzapine 10 mg 08/22/20 11:41 09/22/20 10:15 Olanzapine 10 Mg Vial IM 10 mg BID PRN Administration Psychosis Olanzapine 10 mg 09/11/20 14:06 09/23/20 14:50 Olanzapine Odt 10 Mg Tab.Rapdis TRANSLINGU 10 mg RQ6H PRN Administration Psychosis Paliperidone 3 mg 10/14/20 09:00 10/18/20 09:22 Paliperidone Er 6 Mg Tab.Er.24 PO 3 mg DAILY OZZY Administration Quetiapine Fumarate 100 mg 08/16/20 22:10 09/20/20 00:39 Quetiapine Fumarate 100 Mg Tablet PO 100 mg BEDTIME PRN Administration Insomnia Topiramate 50 mg 08/05/20 21:00 10/18/20 20:36 Topiramate 25 Mg Tablet PO 50 mg BEDTIME OZZY Administration Vitamin D 25 mcg 08/06/20 09:00 10/18/20 09:57 Cholecalciferol (Vitamin D3) 25 Mcg Tablet PO 25 mcg DAILY OZZY Administration Allergies Allergies Allergy/AdvReac Type Severity Reaction Status Date / Time lithium [[place]] Allergy Severe TOXICITY Verified 07/28/20 18:08 thiothixene Allergy Severe SWELLING Verified 08/05/20 07:28 barium sulfate Allergy Intermediate NAUSEA & Verified 08/05/20 07:28 [BARIUM SULFATE] VOMITING haloperidol Allergy Intermediate MUSCLE Verified 07/28/20 18:08 TENSION IN LEGS benztropine Allergy Unknown benztropine Verified 08/05/20 07:28 mesylate- unknown diphenhydramine Allergy Unknown urinary Verified 08/05/20 07:28 [From Benadryl] retention fluphenazine Allergy Unknown UNKNOWN Verified 08/05/20 07:28 gabapentin [From NEURONTIN] Allergy Unknown UNKNOWN Verified 07/28/20 18:08 prolixen Allergy Unknown Unknown Uncoded 07/28/20 16:56 Assessment & Plan Assessment & Plan (1) Schizoaffective disorder: Status: Acute Code(s): F25.9 - Schizoaffective disorder, unspecified Assessment and Plan: increase Latuda to 20 mg daily check EKG Greater than 50% of the session was spent on counseling and/or coordination of care Patient educated on: medical condition Reason for contiued inpatient stay Substantial Risk for: inability to function, rapid decompensation and med/psych decompensation
[2020-10-19 05:10] VITALS: BP 124/71; PULSE 78; RESP 20; TEMP 36.6
[2020-10-19 05:18] LABS: Glucose, Whole Blood 115 mg/dL (60-115)
[2020-10-19] MEDS: Docusate Sodium 100 MG CAPSULE PO ×2 (08:46→20:51)
[2020-10-19] MEDS: Paliperidone ER 6 MG TAB.ER.24 3 MG PO (08:46)
[2020-10-19] MEDS: Cholecalciferol (Vitamin D3) 25 MCG TABLET PO (08:47)
[2020-10-19] MEDS: Lurasidone HCl 20 MG TABLET PO (08:48)
[2020-10-19 08:51] VITALS: BP 124/71; PULSE 78
[2020-10-19] MEDS: Aspirin 81 MG TAB.CHEW PO (08:51)
[2020-10-19] MEDS: Metoprolol Succinate ER 25 MG TAB.ER.24H 37.5 MG PO ×2 (08:51→20:44)
[2020-10-19 17:52] LABS: Glucose, Whole Blood 143 mg/dL (60-115)
[2020-10-19 18:00] VITALS: BP 133/79; PULSE 86; TEMP 36.3
[2020-10-19] MEDS: cloZAPine 25 MG TABLET 75 MG PO (19:29)
[2020-10-19] MEDS: Divalproex Sodium 500 MG TABLET.DR 1000 MG PO (19:30)
[2020-10-19] MEDS: cloZAPine 100 MG TABLET 200 MG PO (19:30)
--- NOTE | 2020-10-19 20:22 | PC.NURSE ---
EYES-pt's l eye appears to be enlarged. 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 pt's reports that his last set of glasses and eye exam ''was awhile back'' ''my prescription has not changed in 8 years'' patient has not been wearing his glasses since admission as the frames are broken and twisted. pt has been using cheater glasses that had been given to him. reports [facility] is where he goes.
[2020-10-19 20:44] VITALS: BP 142/80; PULSE 88
[2020-10-19] MEDS: Topiramate 25 MG TABLET 50 MG PO (20:51)
[2020-10-19] MEDS: Atorvastatin Calcium 20 MG TABLET PO (20:52)
--- NOTE | 2020-10-19 21:02 | P.PNPSI_ITS ---
Subjective Subjective Date of Service: 10/19/20 Reason For Visit: Psychosis Subjective Notes: [place] Order Interim History: patient was somewhat more energized today was out of his room earlier today irritable asking why he had not been discharged linear thoughts at times difficult wean information Medication Compliance: Yes Mental Status Exam Mental Status Exam Patient Appearance: Disheveled and Unkempt Patient Orientation: Person, Place and Situation Level of Consciousness: Awake Patient Behavior: Passive Mood Description: Withdrawn Affect Description: Withdrawn Ability to Follow Directions: Fair Speech Pattern: Clear and Delayed Thought Process: Goal Oriented Thought Content: positive for Poverty of Content Judgement and Insight: taking meds Diagnostics Vital Signs (24Hr): Vital Signs - 24 hr 10/19/20 05:10 10/19/20 08:51 10/19/20 18:00 Temperature 97.8 F 97.3 F Pulse Rate 78 78 86 Respiratory Rate 20 Blood Pressure 124/71 124/71 133/79 10/19/20 20:44 Temperature Pulse Rate 88 Respiratory Rate Blood Pressure 142/80 H Body Mass Index 23.1 Labs Results: 10/11/20 11:50 08/26/20 08:11 Labs: Laboratory Results - last 48 hr 10/17/20 10/18/20 10/19/20 20:22 20:11 05:10 POC Glucose 170 H 133 H 115 10/19/20 17:23 POC Glucose 143 H Medications Medications Current Medications Generic Name Dose Route Start Last Admin Trade Name Freq PRN Reason Stop Dose Admin Acetaminophen 650 mg 08/26/20 10:22 Acetaminophen 325 Mg Tablet PO Q6H PRN Pain, Mild (Pain Scale 1-3) Albuterol Sulfate 2 puff 08/05/20 19:32 10/09/20 19:32 Albuterol Sulfate 90 Mcg 8 Gm Inhaler INHALE 2 puff DAILY PRN Administration asthma Aspirin 81 mg 08/06/20 09:00 10/19/20 08:51 Aspirin 81 Mg Tab.Chew PO 81 mg DAILY OZZY Administration Atorvastatin Calcium 20 mg 08/05/20 21:00 10/19/20 20:52 Atorvastatin Calcium 20 Mg Tablet PO 20 mg BEDTIME OZZY Administration Clozapine 200 mg 10/19/20 19:00 10/19/20 19:30 Clozapine 100 Mg Tablet PO 200 mg DAILY@1900 OZZY Administration Clozapine 75 mg 10/19/20 19:00 10/19/20 19:29 Clozapine 25 Mg Tablet PO 75 mg DAILY@1900 OZZY Administration Divalproex Sodium 1,000 mg 10/19/20 19:00 10/19/20 19:30 Divalproex Sodium 500 Mg Tablet.Dr PO 1,000 mg DAILY@1900 OZZY Administration Docusate Sodium 100 mg 08/05/20 21:00 10/19/20 20:51 Docusate Sodium 100 Mg Capsule PO 100 mg BID@0830,2100 OZZY Administration Lurasidone HCl 20 mg 10/19/20 09:00 10/19/20 08:48 Lurasidone Hcl 20 Mg Tablet PO 20 mg DAILY OZZY Administration Metoprolol Succinate 37.5 mg 08/05/20 21:00 10/19/20 20:44 Metoprolol Succinate Er 25 Mg Tab.Er.24h PO 37.5 mg BID OZZY Administration Protocol Olanzapine 10 mg 08/22/20 11:41 09/22/20 10:15 Olanzapine 10 Mg Vial IM 10 mg BID PRN Administration Psychosis Olanzapine 10 mg 09/11/20 14:06 09/23/20 14:50 Olanzapine Odt 10 Mg Tab.Rapdis TRANSLINGU 10 mg RQ6H PRN Administration Psychosis Paliperidone 3 mg 10/14/20 09:00 10/19/20 08:46 Paliperidone Er 6 Mg Tab.Er.24 PO 3 mg DAILY OZZY Administration Quetiapine Fumarate 100 mg 08/16/20 22:10 09/20/20 00:39 Quetiapine Fumarate 100 Mg Tablet PO 100 mg BEDTIME PRN Administration Insomnia Topiramate 50 mg 08/05/20 21:00 10/19/20 20:51 Topiramate 25 Mg Tablet PO 50 mg BEDTIME OZZY Administration Vitamin D 25 mcg 08/06/20 09:00 10/19/20 08:47 Cholecalciferol (Vitamin D3) 25 Mcg Tablet PO 25 mcg DAILY OZZY Administration Allergies Allergies Allergy/AdvReac Type Severity Reaction Status Date / Time lithium [[place]] Allergy Severe TOXICITY Verified 07/28/20 18:08 thiothixene Allergy Severe SWELLING Verified 08/05/20 07:28 barium sulfate Allergy Intermediate NAUSEA & Verified 08/05/20 07:28 [BARIUM SULFATE] VOMITING haloperidol Allergy Intermediate MUSCLE Verified 07/28/20 18:08 TENSION IN LEGS benztropine Allergy Unknown benztropine Verified 08/05/20 07:28 mesylate- unknown diphenhydramine Allergy Unknown urinary Verified 08/05/20 07:28 [From Benadryl] retention fluphenazine Allergy Unknown UNKNOWN Verified 08/05/20 07:28 gabapentin [From NEURONTIN] Allergy Unknown UNKNOWN Verified 07/28/20 18:08 prolixen Allergy Unknown Unknown Uncoded 07/28/20 16:56 Assessment & Plan Assessment & Plan (1) Cardiac arrhythmia: Status: Acute Code(s): I49.9 - Cardiac arrhythmia, unspecified (2) Schizoaffective disorder: Status: Acute Code(s): F25.9 - Schizoaffective disorder, unspecified (3) Hypertension: Status: Acute Code(s): I10 - Essential (primary) hypertension (4) Coronary artery disease: Status: Acute Code(s): I25.10 - Atherosclerotic heart disease of [place] coronary artery without angina pectoris Assessment and Plan: check EKG patient more animated monitor for increased aggression latudainc to 20 mg monitor response Greater than 50% of the session was spent on counseling and/or coordination of care
[2020-10-20 05:45] VITALS: BP 135/68; PULSE 75; RESP 20; TEMP 36.8; O2SAT 96
[2020-10-20 06:26] LABS: Glucose, Whole Blood 113 mg/dL (60-115)
--- NOTE | 2020-10-20 08:00 | ECG_ITS ---
Test Reason : CP Blood Pressure : / mmHG Vent. Rate : 080 BPM Atrial Rate : 080 BPM P-R Int : 172 ms QRS Dur : 118 ms QT Int : 452 ms P-R-T Axes : 054 040 190 degrees QTc Int : 521 ms Normal sinus rhythm Left ventricular hypertrophy with QRS widening and repolarization abnormality Prolonged QT Abnormal ECG When compared with ECG of 12-OCT-2020 09:17, No significant change was found Referred By: Rocael Pacheco Electronically Signed By:JEREMIAS MARTIN MD
[2020-10-20] MEDS: Lurasidone HCl 20 MG TABLET PO (08:54)
[2020-10-20] MEDS: Cholecalciferol (Vitamin D3) 25 MCG TABLET PO (08:54)
[2020-10-20] MEDS: Docusate Sodium 100 MG CAPSULE PO ×2 (08:55→20:51)
[2020-10-20] MEDS: Aspirin 81 MG TAB.CHEW PO (08:55)
[2020-10-20] MEDS: Paliperidone ER 6 MG TAB.ER.24 3 MG PO (08:55)
[2020-10-20 08:56] VITALS: BP 135/68; PULSE 75
[2020-10-20] MEDS: Metoprolol Succinate ER 25 MG TAB.ER.24H 37.5 MG PO ×2 (08:56→20:50)
[2020-10-20 09:04] LABS: Valproate 67.2 mcg/mL (50.0-100.0)
[2020-10-20 17:50] LABS: Glucose, Whole Blood 106 mg/dL (60-115)
[2020-10-20 18:00] VITALS: BP 139/77; PULSE 86; TEMP 37.1
[2020-10-20] MEDS: cloZAPine 25 MG TABLET 75 MG PO (18:58)
[2020-10-20] MEDS: cloZAPine 100 MG TABLET 200 MG PO (18:58)
[2020-10-20 20:50] VITALS: BP 139/77; PULSE 86
[2020-10-20] MEDS: Atorvastatin Calcium 20 MG TABLET PO (20:50)
[2020-10-20] MEDS: Topiramate 25 MG TABLET 50 MG PO (20:51)
--- NOTE | 2020-10-20 22:06 | PC.NURSE ---
Patient refused his hs Depakote and said I get dehydrated and my kidneys are shot from the [place] .
--- NOTE | 2020-10-20 22:15 | HO.PSYCHPN ---
Subjective Subjective Date of Service: 10/20/20 Reason For Visit: Psychosis Subjective Notes: [place] Order Interim History: patient remains with withdrawn with periods of irritability. Some increased range of affect noted. Remains illogical disorganized flat Medication Compliance: Intermittent Mental Status Exam Mental Status Exam Patient Appearance: Fatigued and Disheveled Patient Orientation: Person and Place Level of Consciousness: Awake and Drowsy Mood Description: Withdrawn, Labile, Blunted and Apprehensive Affect Description: Blunted, Angry and Sad Hallucinations: None Thought Process: Distracted and Rumination Judgement and Insight: poor insight and impulse control Diagnostics Vital Signs (24Hr): Vital Signs - 24 hr 10/20/20 05:45 10/20/20 08:56 10/20/20 18:00 Temperature 98.3 F 98.7 F Pulse Rate 75 75 86 Respiratory Rate 20 Blood Pressure 135/68 135/68 139/77 Pulse Oximetry 96 10/20/20 20:50 Temperature Pulse Rate 86 Respiratory Rate Blood Pressure 139/77 Pulse Oximetry Body Mass Index 23.1 Labs Results: 10/11/20 11:50 08/26/20 08:11 Labs: Laboratory Results - last 48 hr 10/19/20 10/19/20 10/20/20 05:10 17:23 06:22 POC Glucose 115 143 H 113 Valproic Acid 10/20/20 10/20/20 07:57 16:59 POC Glucose 106 Valproic Acid 67.2 Medications Medications Current Medications Generic Name Dose Route Start Last Admin Trade Name Freq PRN Reason Stop Dose Admin Acetaminophen 650 mg 08/26/20 10:22 Acetaminophen 325 Mg Tablet PO Q6H PRN Pain, Mild (Pain Scale 1-3) Albuterol Sulfate 2 puff 08/05/20 19:32 10/09/20 19:32 Albuterol Sulfate 90 Mcg 8 Gm Inhaler INHALE 2 puff DAILY PRN Administration asthma Aspirin 81 mg 08/06/20 09:00 10/20/20 08:55 Aspirin 81 Mg Tab.Chew PO 81 mg DAILY OZZY Administration Atorvastatin Calcium 20 mg 08/05/20 21:00 10/20/20 20:50 Atorvastatin Calcium 20 Mg Tablet PO 20 mg BEDTIME OZZY Administration Clozapine 200 mg 10/19/20 19:00 10/20/20 18:58 Clozapine 100 Mg Tablet PO 200 mg DAILY@1900 OZZY Administration Clozapine 75 mg 10/19/20 19:00 10/20/20 18:58 Clozapine 25 Mg Tablet PO 75 mg DAILY@1900 [facility] Administration Divalproex Sodium 1,000 mg 10/19/20 19:00 10/20/20 19:06 Divalproex Sodium 500 Mg Tablet.Dr PO Not Given DAILY@1900 [facility] Docusate Sodium 100 mg 08/05/20 21:00 10/20/20 20:51 Docusate Sodium 100 Mg Capsule PO 100 mg BID@0830,2100 [facility] Administration Lurasidone HCl 20 mg 10/19/20 09:00 10/20/20 08:54 Lurasidone Hcl 20 Mg Tablet PO 20 mg DAILY OZZY Administration Metoprolol Succinate 37.5 mg 08/05/20 21:00 10/20/20 20:50 Metoprolol Succinate Er 25 Mg Tab.Er.24h PO 37.5 mg BID OZZY Administration Protocol Olanzapine 10 mg 08/22/20 11:41 09/22/20 10:15 Olanzapine 10 Mg Vial IM 10 mg BID PRN Administration Psychosis Olanzapine 10 mg 09/11/20 14:06 09/23/20 14:50 Olanzapine Odt 10 Mg Tab.Rapdis TRANSLINGU 10 mg RQ6H PRN Administration Psychosis Quetiapine Fumarate 100 mg 08/16/20 22:10 09/20/20 00:39 Quetiapine Fumarate 100 Mg Tablet PO 100 mg BEDTIME PRN Administration Insomnia Topiramate 50 mg 08/05/20 21:00 10/20/20 20:51 Topiramate 25 Mg Tablet PO 50 mg BEDTIME OZZY Administration Vitamin D 25 mcg 08/06/20 09:00 10/20/20 08:54 Cholecalciferol (Vitamin D3) 25 Mcg Tablet PO 25 mcg DAILY OZZY Administration Allergies Allergies Allergy/AdvReac Type Severity Reaction Status Date / Time lithium [[place]] Allergy Severe TOXICITY Verified 07/28/20 18:08 thiothixene Allergy Severe SWELLING Verified 08/05/20 07:28 barium sulfate Allergy Intermediate NAUSEA & Verified 08/05/20 07:28 [BARIUM SULFATE] VOMITING haloperidol Allergy Intermediate MUSCLE Verified 07/28/20 18:08 TENSION IN LEGS benztropine Allergy Unknown benztropine Verified 08/05/20 07:28 mesylate- unknown diphenhydramine Allergy Unknown urinary Verified 08/05/20 07:28 [From Benadryl] retention fluphenazine Allergy Unknown UNKNOWN Verified 08/05/20 07:28 gabapentin [From NEURONTIN] Allergy Unknown UNKNOWN Verified 07/28/20 18:08 prolixen Allergy Unknown Unknown Uncoded 07/28/20 16:56 Assessment & Plan Assessment & Plan (1) Schizoaffective disorder: Status: Acute Code(s): F25.9 - Schizoaffective disorder, unspecified (2) Cardiac arrhythmia: Status: Acute Code(s): I49.9 - Cardiac arrhythmia, unspecified Assessment and Plan: . Invega monitor EKG continue Latuda Depakote clozapine Depakote level 67 referral to [facility] looking to see if patient can cooperate with any alternative discharge planning QTC was elevated at 520 will repeat EKG Greater than 50% of the session was spent on counseling and/or coordination of care
[2020-10-21 06:05] VITALS: BP 137/67; PULSE 75; RESP 18; TEMP 36.8
[2020-10-21 06:26] LABS: Glucose, Whole Blood 131 mg/dL (60-115)
[2020-10-21 07:00] VITALS: BMI 35.9
--- NOTE | 2020-10-21 08:00 | ECG_ITS ---
Test Reason : CHECK QTC Blood Pressure : / mmHG Vent. Rate : 087 BPM Atrial Rate : 087 BPM P-R Int : 166 ms QRS Dur : 116 ms QT Int : 422 ms P-R-T Axes : 049 033 196 degrees QTc Int : 507 ms Normal sinus rhythm Left ventricular hypertrophy with QRS widening and repolarization abnormality Prolonged QT Abnormal ECG When compared with ECG of 20-OCT-2020 08:18, QT has shortened Referred By: Rocael Pacheco Electronically Signed By:JEREMIAS MARTIN MD
[2020-10-21] MEDS: Lurasidone HCl 20 MG TABLET PO (09:17)
[2020-10-21 09:18] VITALS: BP 137/67; PULSE 75
[2020-10-21] MEDS: Aspirin 81 MG TAB.CHEW PO (09:18)
[2020-10-21] MEDS: Metoprolol Succinate ER 25 MG TAB.ER.24H 37.5 MG PO ×2 (09:18→20:44)
[2020-10-21] MEDS: Docusate Sodium 100 MG CAPSULE PO ×2 (09:19→20:43)
[2020-10-21] MEDS: Cholecalciferol (Vitamin D3) 25 MCG TABLET PO (09:19)
--- NOTE | 2020-10-21 18:21 | P.PNPSI_ITS ---
Subjective Subjective Date of Service: 10/21/20 Reason For Visit: Psychosis Subjective Notes: Legal Status (SECTION 8 ) Interim History: PT has been flat dysphoric has been cooperative with cking ekg Medication Compliance: Intermittent Side effects from medications: Yes Mental Status Exam Mental Status Exam Patient Appearance: Fatigued and Disheveled Patient Orientation: Person and Place Level of Consciousness: Awake and Drowsy Patient Behavior: Sedated and Isolative Mood Description: Withdrawn, Labile, Blunted and Apprehensive Affect Description: Blunted, Angry and Sad Hallucinations: None Thought Process: Distracted and Rumination Judgement and Insight: poor insight and impulse control Diagnostics Vital Signs (24Hr): Vital Signs - 24 hr 10/20/20 20:50 10/21/20 06:05 10/21/20 09:18 Temperature 98.3 F Pulse Rate 86 75 75 Respiratory Rate 18 Blood Pressure 139/77 137/67 137/67 Body Mass Index 35.9 Labs Results: 10/11/20 11:50 08/26/20 08:11 Labs: Laboratory Results - last 48 hr 10/20/20 10/20/20 10/20/20 06:22 07:57 16:59 POC Glucose 113 106 Valproic Acid 67.2 10/21/20 06:09 POC Glucose 131 H Valproic Acid Medications Medications Current Medications Generic Name Dose Route Start Last Admin Trade Name Freq PRN Reason Stop Dose Admin Acetaminophen 650 mg 08/26/20 10:22 Acetaminophen 325 Mg Tablet PO Q6H PRN Pain, Mild (Pain Scale 1-3) Albuterol Sulfate 2 puff 08/05/20 19:32 10/09/20 19:32 Albuterol Sulfate 90 Mcg 8 Gm Inhaler INHALE 2 puff DAILY PRN Administration asthma Aspirin 81 mg 08/06/20 09:00 10/21/20 09:18 Aspirin 81 Mg Tab.Chew PO 81 mg DAILY OZZY Administration Atorvastatin Calcium 20 mg 08/05/20 21:00 10/20/20 20:50 Atorvastatin Calcium 20 Mg Tablet PO 20 mg BEDTIME OZZY Administration Clozapine 200 mg 10/19/20 19:00 10/20/20 18:58 Clozapine 100 Mg Tablet PO 200 mg DAILY@1900 OZZY Administration Clozapine 75 mg 10/19/20 19:00 10/20/20 18:58 Clozapine 25 Mg Tablet PO 75 mg DAILY@1900 OZZY Administration Divalproex Sodium 1,000 mg 10/19/20 19:00 10/20/20 19:06 Divalproex Sodium 500 Mg Tablet. PO Not Given DAILY@1900 [facility] Docusate Sodium 100 mg 08/05/20 21:00 10/21/20 09:19 Docusate Sodium 100 Mg Capsule PO 100 mg BID@0830,2100 OZZY Administration Lurasidone HCl 20 mg 10/19/20 09:00 10/21/20 09:17 Lurasidone Hcl 20 Mg Tablet PO 20 mg DAILY OZZY Administration Metoprolol Succinate 37.5 mg 08/05/20 21:00 10/21/20 09:18 Metoprolol Succinate Er 25 Mg Tab.Er.24h PO 37.5 mg BID OZZY Administration Protocol Olanzapine 10 mg 08/22/20 11:41 09/22/20 10:15 Olanzapine 10 Mg Vial IM 10 mg BID PRN Administration Psychosis Olanzapine 10 mg 09/11/20 14:06 09/23/20 14:50 Olanzapine Odt 10 Mg Tab.Rapdis TRANSLINGU 10 mg RQ6H PRN Administration Psychosis Quetiapine Fumarate 100 mg 08/16/20 22:10 09/20/20 00:39 Quetiapine Fumarate 100 Mg Tablet PO 100 mg BEDTIME PRN Administration Insomnia Topiramate 50 mg 08/05/20 21:00 10/20/20 20:51 Topiramate 25 Mg Tablet PO 50 mg BEDTIME OZZY Administration Vitamin D 25 mcg 08/06/20 09:00 10/21/20 09:19 Cholecalciferol (Vitamin D3) 25 Mcg Tablet PO 25 mcg DAILY OZZY Administration Allergies Allergies Allergy/AdvReac Type Severity Reaction Status Date / Time lithium [[place]] Allergy Severe TOXICITY Verified 07/28/20 18:08 thiothixene Allergy Severe SWELLING Verified 08/05/20 07:28 barium sulfate Allergy Intermediate NAUSEA & Verified 08/05/20 07:28 [BARIUM SULFATE] VOMITING haloperidol Allergy Intermediate MUSCLE Verified 07/28/20 18:08 TENSION IN LEGS benztropine Allergy Unknown benztropine Verified 08/05/20 07:28 mesylate- unknown diphenhydramine Allergy Unknown urinary Verified 08/05/20 07:28 [From Benadryl] retention fluphenazine Allergy Unknown UNKNOWN Verified 08/05/20 07:28 gabapentin [From NEURONTIN] Allergy Unknown UNKNOWN Verified 07/28/20 18:08 prolixen Allergy Unknown Unknown Uncoded 07/28/20 16:56 Assessment & Plan Assessment & Plan (1) Cardiac arrhythmia: Status: Acute Code(s): I49.9 - Cardiac arrhythmia, unspecified Assessment and Plan: continue to monitor EKG (2) Schizoaffective disorder: Status: Acute Code(s): F25.9 - Schizoaffective disorder, unspecified Assessment and Plan: invega discontinued continue Latuda clozapine monitor ekg and vs monitor for worsening of mental status Greater than 50% of the session was spent on counseling and/or coordination of care
[2020-10-21 20:30] VITALS: BP 124/79; PULSE 81; TEMP 36.6
[2020-10-21] MEDS: Divalproex Sodium 500 MG TABLET.DR 1000 MG PO (20:43)
[2020-10-21] MEDS: cloZAPine 25 MG TABLET 75 MG PO (20:43)
[2020-10-21] MEDS: Topiramate 25 MG TABLET 50 MG PO (20:43)
[2020-10-21 20:44] VITALS: BP 124/79; PULSE 81
[2020-10-21] MEDS: Atorvastatin Calcium 20 MG TABLET PO (20:44)
[2020-10-21] MEDS: cloZAPine 100 MG TABLET 200 MG PO (20:44)
[2020-10-21 21:05] LABS: Glucose, Whole Blood 212 mg/dL (60-115)
[2020-10-22 06:00] VITALS: BP 132/85; PULSE 79; TEMP 36.4; O2SAT 95
[2020-10-22 06:48] LABS: Glucose, Whole Blood 134 mg/dL (60-115)
[2020-10-22 08:14] VITALS: BP 132/85; PULSE 79
[2020-10-22] MEDS: Metoprolol Succinate ER 25 MG TAB.ER.24H 37.5 MG PO ×2 (08:14→20:46)
[2020-10-22] MEDS: Docusate Sodium 100 MG CAPSULE PO ×2 (08:14→20:46)
[2020-10-22] MEDS: Cholecalciferol (Vitamin D3) 25 MCG TABLET PO (08:15)
[2020-10-22] MEDS: Aspirin 81 MG TAB.CHEW PO (08:16)
[2020-10-22] MEDS: Lurasidone HCl 20 MG TABLET PO (11:02)
--- NOTE | 2020-10-22 13:15 | PC.NURSE ---
pt reports he cracked/split his upper denture,showed this proposal lead writer and is requesting ground diet. CARLITOS kaplan aware
--- NOTE | 2020-10-22 14:25 | HO.PSYCHPN ---
Subjective Subjective Date of Service: 10/22/20 Reason For Visit: Psychosis Diagnostics Vital Signs (24Hr): Vital Signs - 24 hr 10/21/20 20:30 10/21/20 20:44 10/22/20 06:00 Temperature 97.8 F 97.5 F Pulse Rate 81 81 79 Blood Pressure 124/79 124/79 132/85 Pulse Oximetry 95 10/22/20 08:14 Temperature Pulse Rate 79 Blood Pressure 132/85 Pulse Oximetry Body Mass Index 35.9 Labs Results: 10/11/20 11:50 08/26/20 08:11 Labs: Laboratory Results - last 48 hr 10/20/20 10/21/20 10/21/20 16:59 06:09 20:59 POC Glucose 106 131 H 212 H 10/22/20 06:41 POC Glucose 134 H Medications Medications Current Medications Generic Name Dose Route Start Last Admin Trade Name Freq PRN Reason Stop Dose Admin Acetaminophen 650 mg 08/26/20 10:22 Acetaminophen 325 Mg Tablet PO Q6H PRN Pain, Mild (Pain Scale 1-3) Albuterol Sulfate 2 puff 08/05/20 19:32 10/09/20 19:32 Albuterol Sulfate 90 Mcg 8 Gm Inhaler INHALE 2 puff DAILY PRN Administration asthma Aspirin 81 mg 08/06/20 09:00 10/22/20 08:16 Aspirin 81 Mg Tab.Chew PO 81 mg DAILY OZZY Administration Atorvastatin Calcium 20 mg 08/05/20 21:00 10/21/20 20:44 Atorvastatin Calcium 20 Mg Tablet PO 20 mg BEDTIME OZZY Administration Clozapine 200 mg 10/19/20 19:00 10/21/20 20:44 Clozapine 100 Mg Tablet PO 200 mg DAILY@1900 OZZY Administration Clozapine 75 mg 10/19/20 19:00 10/21/20 20:43 Clozapine 25 Mg Tablet PO 75 mg DAILY@1900 OZZY Administration Divalproex Sodium 1,000 mg 10/19/20 19:00 10/21/20 20:43 Divalproex Sodium 500 Mg Tablet.Dr PO 1,000 mg DAILY@1900 OZZY Administration Docusate Sodium 100 mg 08/05/20 21:00 10/22/20 08:14 Docusate Sodium 100 Mg Capsule PO 100 mg BID@0830,2100 OZZY Administration Lurasidone HCl 20 mg 10/19/20 09:00 10/22/20 11:02 Lurasidone Hcl 20 Mg Tablet PO 20 mg DAILY OZZY Administration Metoprolol Succinate 37.5 mg 08/05/20 21:00 10/22/20 08:14 Metoprolol Succinate Er 25 Mg Tab.Er.24h PO 37.5 mg BID OZZY Administration Protocol Olanzapine 10 mg 08/22/20 11:41 09/22/20 10:15 Olanzapine 10 Mg Vial IM 10 mg BID PRN Administration Psychosis Olanzapine 10 mg 09/11/20 14:06 09/23/20 14:50 Olanzapine Odt 10 Mg Tab.Rapdis TRANSLINGU 10 mg RQ6H PRN Administration Psychosis Quetiapine Fumarate 100 mg 08/16/20 22:10 09/20/20 00:39 Quetiapine Fumarate 100 Mg Tablet PO 100 mg BEDTIME PRN Administration Insomnia Topiramate 50 mg 08/05/20 21:00 10/21/20 20:43 Topiramate 25 Mg Tablet PO 50 mg BEDTIME OZZY Administration Vitamin D 25 mcg 08/06/20 09:00 10/22/20 08:15 Cholecalciferol (Vitamin D3) 25 Mcg Tablet PO 25 mcg DAILY OZZY Administration Allergies Allergies Allergy/AdvReac Type Severity Reaction Status Date / Time lithium [[place]] Allergy Severe TOXICITY Verified 07/28/20 18:08 thiothixene Allergy Severe SWELLING Verified 08/05/20 07:28 barium sulfate Allergy Intermediate NAUSEA & Verified 08/05/20 07:28 [BARIUM SULFATE] VOMITING haloperidol Allergy Intermediate MUSCLE Verified 07/28/20 18:08 TENSION IN LEGS benztropine Allergy Unknown benztropine Verified 08/05/20 07:28 mesylate- unknown diphenhydramine Allergy Unknown urinary Verified 08/05/20 07:28 [From Benadryl] retention fluphenazine Allergy Unknown UNKNOWN Verified 08/05/20 07:28 gabapentin [From NEURONTIN] Allergy Unknown UNKNOWN Verified 07/28/20 18:08 prolixen Allergy Unknown Unknown Uncoded 07/28/20 16:56 Assessment & Plan Greater than 50% of the session was spent on counseling and/or coordination of care
--- NOTE | 2020-10-22 16:35 | HO.PSYCHPN ---
Subjective Subjective Date of Service: 10/22/20 Reason For Visit: Psychosis Subjective Notes: Legal Status (Section VIII) Interim History: Team reports pt expressed anger and was upset and expressed significant delusional content after meeting with his out patient team yesterday. Today, he is resting in bed. TW introduced and discussed role for the weekend. Pt responded that the doctor last weekend was nice to him. Currently, he denies any questions, concerns, needs. Team reports pt broke dentures-diet change to regular, soft, ground Medication Compliance: Yes Side effects from medications: No Attending Groups: No Review of Systems Reports other (reports denture broke) Cardiovascular: Reports other (arrythmia) Psychiatric: Reports depression, Reports hopelessness, Reports irritability, Reports anhedonia and Reports mood swings Mental Status Exam Mental Status Exam Patient Appearance: Fatigued Patient Orientation: Person, Place and Situation Level of Consciousness: Alert Patient Behavior: Cooperative, Passive and Fatigued Mood Description: Withdrawn, Depressed and Flat Affect Description: Flat Patient Cognition Impaired: Yes Ability to Follow Directions: Fair Speech Pattern: Spontaneous Speech Memory Description: Intact Hallucinations: None (brief meeting-no evidence of active sx) Delusions: Paranoid Ideation Thought Process: Distracted and Rumination Thought Content: positive for [place], positive for Circumstantial and positive for Perseveration Depressive Symptoms: Sleeping More Than Usual, Loss of Int. in Activity, Hopelessness, Isolating-Friends/Family, Unhappiness, Low Self Esteem and Loss of Energy Judgement: Poor Diagnostics Vital Signs (24Hr): Vital Signs - 24 hr 10/21/20 20:30 10/21/20 20:44 10/22/20 06:00 Temperature 97.8 F 97.5 F Pulse Rate 81 81 79 Blood Pressure 124/79 124/79 132/85 Pulse Oximetry 95 10/22/20 08:14 Temperature Pulse Rate 79 Blood Pressure 132/85 Pulse Oximetry Body Mass Index 35.9 Labs Results: 10/11/20 11:50 08/26/20 08:11 Labs: Laboratory Results - last 48 hr 10/20/20 10/21/20 10/21/20 16:59 06:09 20:59 POC Glucose 106 131 H 212 H 10/22/20 06:41 POC Glucose 134 H Medications Medications Current Medications Generic Name Dose Route Start Last Admin Trade Name Freq PRN Reason Stop Dose Admin Acetaminophen 650 mg 08/26/20 10:22 Acetaminophen 325 Mg Tablet PO Q6H PRN Pain, Mild (Pain Scale 1-3) Albuterol Sulfate 2 puff 08/05/20 19:32 10/09/20 19:32 Albuterol Sulfate 90 Mcg 8 Gm Inhaler INHALE 2 puff DAILY PRN Administration asthma Aspirin 81 mg 08/06/20 09:00 10/22/20 08:16 Aspirin 81 Mg Tab.Chew PO 81 mg DAILY OZZY Administration Atorvastatin Calcium 20 mg 08/05/20 21:00 10/21/20 20:44 Atorvastatin Calcium 20 Mg Tablet PO 20 mg BEDTIME OZZY Administration Clozapine 200 mg 10/19/20 19:00 10/21/20 20:44 Clozapine 100 Mg Tablet PO 200 mg DAILY@1900 OZZY Administration Clozapine 75 mg 10/19/20 19:00 10/21/20 20:43 Clozapine 25 Mg Tablet PO 75 mg DAILY@1900 O[facility] Administration Divalproex Sodium 1,000 mg 10/19/20 19:00 10/21/20 20:43 Divalproex Sodium 500 Mg Tablet.Dr PO 1,000 mg DAILY@1900 O[facility] Administration Docusate Sodium 100 mg 08/05/20 21:00 10/22/20 08:14 Docusate Sodium 100 Mg Capsule PO 100 mg BID@0830,2100 O[facility] Administration Lurasidone HCl 20 mg 10/19/20 09:00 10/22/20 11:02 Lurasidone Hcl 20 Mg Tablet PO 20 mg DAILY OZZY Administration Metoprolol Succinate 37.5 mg 08/05/20 21:00 10/22/20 08:14 Metoprolol Succinate Er 25 Mg Tab.Er.24h PO 37.5 mg BID OZZY Administration Protocol Olanzapine 10 mg 08/22/20 11:41 09/22/20 10:15 Olanzapine 10 Mg Vial IM 10 mg BID PRN Administration Psychosis Olanzapine 10 mg 09/11/20 14:06 09/23/20 14:50 Olanzapine Odt 10 Mg Tab.Rapdis TRANSLINGU 10 mg RQ6H PRN Administration Psychosis Quetiapine Fumarate 100 mg 08/16/20 22:10 09/20/20 00:39 Quetiapine Fumarate 100 Mg Tablet PO 100 mg BEDTIME PRN Administration Insomnia Topiramate 50 mg 08/05/20 21:00 10/21/20 20:43 Topiramate 25 Mg Tablet PO 50 mg BEDTIME OZZY Administration Vitamin D 25 mcg 08/06/20 09:00 10/22/20 08:15 Cholecalciferol (Vitamin D3) 25 Mcg Tablet PO 25 mcg DAILY OZZY Administration Allergies Allergies Allergy/AdvReac Type Severity Reaction Status Date / Time lithium [[place]] Allergy Severe TOXICITY Verified 07/28/20 18:08 thiothixene Allergy Severe SWELLING Verified 08/05/20 07:28 barium sulfate Allergy Intermediate NAUSEA & Verified 08/05/20 07:28 [BARIUM SULFATE] VOMITING haloperidol Allergy Intermediate MUSCLE Verified 07/28/20 18:08 TENSION IN LEGS benztropine Allergy Unknown benztropine Verified 08/05/20 07:28 mesylate- unknown diphenhydramine Allergy Unknown urinary Verified 08/05/20 07:28 [From Benadryl] retention fluphenazine Allergy Unknown UNKNOWN Verified 08/05/20 07:28 gabapentin [From NEURONTIN] Allergy Unknown UNKNOWN Verified 07/28/20 18:08 prolixen Allergy Unknown Unknown Uncoded 07/28/20 16:56 Assessment & Plan Assessment & Plan (1) Cardiac arrhythmia: Status: Acute Code(s): I49.9 - Cardiac arrhythmia, unspecified Assessment and Plan: -Monitor EKG, Vital Signs (2) Schizoaffective disorder: Status: Acute Code(s): F25.9 - Schizoaffective disorder, unspecified Assessment and Plan: -Continue Latuda/Clozapine -Monitor MSE, Cardiac Status Greater than 50% of the session was spent on counseling and/or coordination of care Patient educated on: therapeutic strategies Informed Consent: further education needed Reason for contiued inpatient stay Substantial Risk for: harm to self, inability to function, rapid decompensation and med/psych decompensation
[2020-10-22 18:00] VITALS: BP 131/61; PULSE 73; TEMP 36.4
[2020-10-22] MEDS: cloZAPine 25 MG TABLET 75 MG PO (18:15)
[2020-10-22] MEDS: cloZAPine 100 MG TABLET 200 MG PO (18:16)
[2020-10-22 20:46] VITALS: BP 131/61; PULSE 73
[2020-10-22] MEDS: Topiramate 25 MG TABLET 50 MG PO (20:46)
[2020-10-22] MEDS: Atorvastatin Calcium 20 MG TABLET PO (20:46)
[2020-10-22 21:24] LABS: Glucose, Whole Blood 161 mg/dL (60-115)
[2020-10-23 06:20] VITALS: BP 125/62; PULSE 74; RESP 18; TEMP 36.5; O2SAT 95
[2020-10-23 06:35] LABS: Glucose, Whole Blood 123 mg/dL (60-115)
[2020-10-23] MEDS: Docusate Sodium 100 MG CAPSULE PO ×2 (09:02→20:59)
[2020-10-23] MEDS: Lurasidone HCl 20 MG TABLET PO (09:02)
[2020-10-23] MEDS: Aspirin 81 MG TAB.CHEW PO (09:02)
[2020-10-23 09:03] VITALS: BP 125/62; PULSE 74
[2020-10-23] MEDS: Metoprolol Succinate ER 25 MG TAB.ER.24H 37.5 MG PO ×2 (09:03→20:58)
[2020-10-23] MEDS: Cholecalciferol (Vitamin D3) 25 MCG TABLET PO (12:55)
--- NOTE | 2020-10-23 17:42 | P.PNPSI_ITS ---
Subjective Subjective Date of Service: 10/23/20 Reason For Visit: Psychosis Subjective Notes: Legal Status (Section 8) Interim History: Pt out of his room at times. Met with screenplay writer briefly. Angry, caustic, delusional. Medication Compliance: Yes Side effects from medications: No Attending Groups: No Review of Systems Review of Systems Yes Unobtainable due to mental status Mental Status Exam Mental Status Exam Patient Appearance: Disheveled Patient Orientation: Person and Place Level of Consciousness: Alert Patient Behavior: Guarded, Talkative, Suspicious, Aggressive, Belligerent, Verbal Threats, Swearing, Resistive to Care and Distractible Mood Description: Hostile, Labile and Angry Affect Description: Labile Patient Cognition Impaired: Yes Ability to Follow Directions: Fair Speech Pattern: Spontaneous Speech Memory Description: Remote Impaired Hallucinations: None (denies) Delusions: Being Controlled, Paranoid Ideation and Grandiose Thought Process: Racing, Illogical, Distracted and Rumination Thought Content: positive for [place], positive for Circumstantial, positive for Perseveration, positive for Preoccupation, positive for Tangential and positive for Disorganized Depressive Symptoms: Loss of Int. in Activity, Feelings of Guilt, Thoughts of /Suicide, Low Self Esteem, Loss of Energy and Difficulty Concentrating Abnormal Motor Activity Signs and Symptoms: Agitation and Restlessness Judgement: Poor Diagnostics Vital Signs (24Hr): Vital Signs - 24 hr 10/22/20 18:00 10/22/20 20:46 10/23/20 06:20 Temperature 97.5 F 97.7 F Pulse Rate 73 73 74 Respiratory Rate 18 Blood Pressure 131/61 131/61 125/62 Pulse Oximetry 95 10/23/20 09:03 Temperature Pulse Rate 74 Respiratory Rate Blood Pressure 125/62 Pulse Oximetry Body Mass Index 35.9 Labs Results: 10/11/20 11:50 08/26/20 08:11 Labs: Laboratory Results - last 48 hr 10/21/20 10/22/20 10/22/20 20:59 06:41 21:20 POC Glucose 212 H 134 H 161 H 10/23/20 06:24 POC Glucose 123 H Medications Medications Current Medications Generic Name Dose Route Start Last Admin Trade Name Freq PRN Reason Stop Dose Admin Acetaminophen 650 mg 08/26/20 10:22 Acetaminophen 325 Mg Tablet PO Q6H PRN Pain, Mild (Pain Scale 1-3) Albuterol Sulfate 2 puff 08/05/20 19:32 10/09/20 19:32 Albuterol Sulfate 90 Mcg 8 Gm Inhaler INHALE 2 puff DAILY PRN Administration asthma Aspirin 81 mg 08/06/20 09:00 10/23/20 09:02 Aspirin 81 Mg Tab.Chew PO 81 mg DAILY OZZY Administration Atorvastatin Calcium 20 mg 08/05/20 21:00 10/22/20 20:46 Atorvastatin Calcium 20 Mg Tablet PO 20 mg BEDTIME OZZY Administration Clozapine 200 mg 10/19/20 19:00 10/22/20 18:16 Clozapine 100 Mg Tablet PO 200 mg DAILY@1900 OZZY Administration Clozapine 75 mg 10/19/20 19:00 10/22/20 18:15 Clozapine 25 Mg Tablet PO 75 mg DAILY@1900 OZZY Administration Divalproex Sodium 1,000 mg 10/19/20 19:00 10/22/20 18:21 Divalproex Sodium 500 Mg Tablet.Dr PO Not Given DAILY@1900 [facility] Docusate Sodium 100 mg 08/05/20 21:00 10/23/20 09:02 Docusate Sodium 100 Mg Capsule PO 100 mg BID@0830,2100 OZZY Administration Lurasidone HCl 20 mg 10/19/20 09:00 10/23/20 09:02 Lurasidone Hcl 20 Mg Tablet PO 20 mg DAILY OZYZ Administration Metoprolol Succinate 37.5 mg 08/05/20 21:00 10/23/20 09:03 Metoprolol Succinate Er 25 Mg Tab.Er.24h PO 37.5 mg BID OZZY Administration Protocol Olanzapine 10 mg 08/22/20 11:41 09/22/20 10:15 Olanzapine 10 Mg Vial IM 10 mg BID PRN Administration Psychosis Olanzapine 10 mg 09/11/20 14:06 09/23/20 14:50 Olanzapine Odt 10 Mg Tab.Rapdis TRANSLINGU 10 mg RQ6H PRN Administration Psychosis Quetiapine Fumarate 100 mg 08/16/20 22:10 09/20/20 00:39 Quetiapine Fumarate 100 Mg Tablet PO 100 mg BEDTIME PRN Administration Insomnia Topiramate 50 mg 08/05/20 21:00 10/22/20 20:46 Topiramate 25 Mg Tablet PO 50 mg BEDTIME OZZY Administration Vitamin D 25 mcg 08/06/20 09:00 10/23/20 12:55 Cholecalciferol (Vitamin D3) 25 Mcg Tablet PO 25 mcg DAILY OZZY Administration Allergies Allergies Allergy/AdvReac Type Severity Reaction Status Date / Time lithium [[place]] Allergy Severe TOXICITY Verified 07/28/20 18:08 thiothixene Allergy Severe SWELLING Verified 08/05/20 07:28 barium sulfate Allergy Intermediate NAUSEA & Verified 08/05/20 07:28 [BARIUM SULFATE] VOMITING haloperidol Allergy Intermediate MUSCLE Verified 07/28/20 18:08 TENSION IN LEGS benztropine Allergy Unknown benztropine Verified 08/05/20 07:28 mesylate- unknown diphenhydramine Allergy Unknown urinary Verified 08/05/20 07:28 [From Benadryl] retention fluphenazine Allergy Unknown UNKNOWN Verified 08/05/20 07:28 gabapentin [From NEURONTIN] Allergy Unknown UNKNOWN Verified 07/28/20 18:08 prolixen Allergy Unknown Unknown Uncoded 07/28/20 16:56 Assessment & Plan Assessment & Plan (1) Schizoaffective disorder: Status: Acute Code(s): F25.9 - Schizoaffective disorder, unspecified Assessment and Plan: -Presents depressed, angry, delusional, feeling he has lost everything. -Continue current regime -Offer support Greater than 50% of the session was spent on counseling and/or coordination of care
[2020-10-23 18:00] VITALS: BP 135/64; PULSE 74; TEMP 36.1
[2020-10-23 18:29] LABS: Glucose, Whole Blood 233 mg/dL (60-115)
[2020-10-23] MEDS: cloZAPine 100 MG TABLET 200 MG PO (19:33)
[2020-10-23] MEDS: cloZAPine 25 MG TABLET 75 MG PO (19:33)
[2020-10-23 20:58] VITALS: BP 138/61; PULSE 82
[2020-10-23] MEDS: Topiramate 25 MG TABLET 50 MG PO (20:58)
[2020-10-23] MEDS: Atorvastatin Calcium 20 MG TABLET PO (20:59)
[2020-10-24 04:55] VITALS: BP 115/65; PULSE 87; RESP 16; TEMP 35.9; O2SAT 95
[2020-10-24 05:00] LABS: Glucose, Whole Blood 145 mg/dL (60-115)
[2020-10-24] MEDS: Lurasidone HCl 20 MG TABLET PO (09:00)
[2020-10-24] MEDS: Docusate Sodium 100 MG CAPSULE PO ×2 (09:00→21:35)
[2020-10-24] MEDS: Cholecalciferol (Vitamin D3) 25 MCG TABLET PO (09:00)
[2020-10-24] MEDS: Metoprolol Succinate ER 25 MG TAB.ER.24H 37.5 MG PO ×2 (09:01→21:35)
[2020-10-24] MEDS: Aspirin 81 MG TAB.CHEW PO (09:01)
--- NOTE | 2020-10-24 14:20 | P.PNPSI_ITS ---
Subjective Subjective Date of Service: 10/24/20 Reason For Visit: Psychosis Subjective Notes: Legal Status (Section VIII) Interim History: No medication changes today. Await EKG results. Visible in milieu common area interacting briefly with others. Declined group offer. Review of Systems Review of Systems Yes Unobtainable due to mental status Psychiatric: Reports depression, Reports hopelessness, Reports irritability, Reports anhedonia, Reports mood swings, Reports paranoia and Reports hallucinations Mental Status Exam Mental Status Exam Patient Appearance: Disheveled Patient Orientation: Person, Place and Situation Level of Consciousness: Alert Patient Behavior: Guarded and Suspicious Mood Description: Constricted Affect Description: Constricted Patient Cognition Impaired: Yes Ability to Follow Directions: Fair Speech Pattern: Spontaneous Speech Memory Description: Remote Impaired, Immediate Impaired and Recent Impaired Hallucinations: None Delusions: Being Controlled and Paranoid Ideation Thought Process: Rumination Thought Content: positive for Flight of Ideas, positive for Loose Associations and positive for Disorganized Depressive Symptoms: Increased Anxiety, Increased Irritability, Hopelessness and Unhappiness Judgement: Poor Diagnostics Vital Signs (24Hr): Vital Signs - 24 hr 10/23/20 18:00 10/23/20 20:58 10/24/20 04:55 Temperature 97.0 F 96.7 F L Pulse Rate 74 82 87 Respiratory Rate 16 Blood Pressure 135/64 138/61 115/65 Pulse Oximetry 95 Body Mass Index 35.9 Labs Results: 10/11/20 11:50 08/26/20 08:11 Labs: Laboratory Results - last 48 hr 10/22/20 10/23/20 10/23/20 21:20 06:24 17:10 POC Glucose 161 H 123 H 233 H 10/24/20 04:51 POC Glucose 145 H Medications Medications Current Medications Generic Name Dose Route Start Last Admin Trade Name Freq PRN Reason Stop Dose Admin Acetaminophen 650 mg 08/26/20 10:22 Acetaminophen 325 Mg Tablet PO Q6H PRN Pain, Mild (Pain Scale 1-3) Albuterol Sulfate 2 puff 08/05/20 19:32 10/09/20 19:32 Albuterol Sulfate 90 Mcg 8 Gm Inhaler INHALE 2 puff DAILY PRN Administration asthma Aspirin 81 mg 08/06/20 09:00 10/24/20 09:01 Aspirin 81 Mg Tab.Chew PO 81 mg DAILY OZZY Administration Atorvastatin Calcium 20 mg 08/05/20 21:00 10/23/20 20:59 Atorvastatin Calcium 20 Mg Tablet PO 20 mg BEDTIME OZZY Administration Clozapine 200 mg 10/19/20 19:00 10/23/20 19:33 Clozapine 100 Mg Tablet PO 200 mg DAILY@1900 OZZY Administration Clozapine 75 mg 10/19/20 19:00 10/23/20 19:33 Clozapine 25 Mg Tablet PO 75 mg DAILY@1900 OZZY Administration Divalproex Sodium 1,000 mg 10/19/20 19:00 10/23/20 19:38 Divalproex Sodium 500 Mg Tablet.Dr PO Not Given DAILY@190 [facility] Docusate Sodium 100 mg 08/05/20 21:00 10/24/20 09:00 Docusate Sodium 100 Mg Capsule PO 100 mg BID@0830,2100 [facility] Administration Lurasidone HCl 20 mg 10/19/20 09:00 10/24/20 09:00 Lurasidone Hcl 20 Mg Tablet PO 20 mg DAILY OZZY Administration Metoprolol Succinate 37.5 mg 08/05/20 21:00 10/24/20 09:01 Metoprolol Succinate Er 25 Mg Tab.Er.24h PO 37.5 mg BID OZZY Administration Protocol Olanzapine 10 mg 08/22/20 11:41 09/22/20 10:15 Olanzapine 10 Mg Vial IM 10 mg BID PRN Administration Psychosis Olanzapine 10 mg 09/11/20 14:06 09/23/20 14:50 Olanzapine Odt 10 Mg Tab.Rapdis TRANSLINGU 10 mg RQ6H PRN Administration Psychosis Quetiapine Fumarate 100 mg 08/16/20 22:10 09/20/20 00:39 Quetiapine Fumarate 100 Mg Tablet PO 100 mg BEDTIME PRN Administration Insomnia Topiramate 50 mg 08/05/20 21:00 10/23/20 20:58 Topiramate 25 Mg Tablet PO 50 mg BEDTIME OZZY Administration Vitamin D 25 mcg 08/06/20 09:00 10/24/20 09:00 Cholecalciferol (Vitamin D3) 25 Mcg Tablet PO 25 mcg DAILY OZZY Administration Allergies Allergies Allergy/AdvReac Type Severity Reaction Status Date / Time lithium [[place]] Allergy Severe TOXICITY Verified 07/28/20 18:08 thiothixene Allergy Severe SWELLING Verified 08/05/20 07:28 barium sulfate Allergy Intermediate NAUSEA & Verified 08/05/20 07:28 [BARIUM SULFATE] VOMITING haloperidol Allergy Intermediate MUSCLE Verified 07/28/20 18:08 TENSION IN LEGS benztropine Allergy Unknown benztropine Verified 08/05/20 07:28 mesylate- unknown diphenhydramine Allergy Unknown urinary Verified 08/05/20 07:28 [From Benadryl] retention fluphenazine Allergy Unknown UNKNOWN Verified 08/05/20 07:28 gabapentin [From NEURONTIN] Allergy Unknown UNKNOWN Verified 07/28/20 18:08 prolixen Allergy Unknown Unknown Uncoded 07/28/20 16:56 Assessment & Plan Assessment & Plan (1) Schizoaffective disorder: Status: Acute Code(s): F25.9 - Schizoaffective disorder, unspecified Assessment and Plan: -Continue current regime -Monitor EKG, awaiting results Greater than 50% of the session was spent on counseling and/or coordination of care Informed Consent: does not understand and further education needed Reason for contiued inpatient stay Substantial Risk for: harm to self, harm to others, inability to function and rapid decompensation
[2020-10-24 17:35] VITALS: BP 133/85; PULSE 77; TEMP 36.3
[2020-10-24] MEDS: cloZAPine 25 MG TABLET 75 MG PO (18:57)
[2020-10-24] MEDS: cloZAPine 100 MG TABLET 200 MG PO (18:58)
[2020-10-24 21:34] LABS: Glucose, Whole Blood 156 mg/dL (60-115)
[2020-10-24 21:35] VITALS: BP 133/85; PULSE 77
[2020-10-24] MEDS: Atorvastatin Calcium 20 MG TABLET PO (21:36)
[2020-10-24] MEDS: Topiramate 25 MG TABLET 50 MG PO (21:36)
[2020-10-25 06:34] LABS: Glucose, Whole Blood 129 mg/dL (60-115)
[2020-10-25] MEDS: Docusate Sodium 100 MG CAPSULE PO ×2 (09:04→21:08)
[2020-10-25] MEDS: Lurasidone HCl 20 MG TABLET PO (09:04)
[2020-10-25] MEDS: Aspirin 81 MG TAB.CHEW PO (09:04)
[2020-10-25] MEDS: Metoprolol Succinate ER 25 MG TAB.ER.24H 37.5 MG PO ×2 (09:04→21:09)
[2020-10-25] MEDS: Cholecalciferol (Vitamin D3) 25 MCG TABLET PO (09:04)
--- NOTE | 2020-10-25 20:30 | HO.PSYCHPN ---
Subjective Subjective Date of Service: 10/25/20 Reason For Visit: Psychosis Subjective Notes: Haines Order Interim History: the patient was more forthcoming today more logical goal directed in thought. 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 Was able to state how he needed close to be brought and his mail a sign of significantly improved executive functioning Medication Compliance: Intermittent Mental Status Exam Mental Status Exam Patient Appearance: Disheveled Patient Orientation: Person, Place and Situation Level of Consciousness: Awake Patient Behavior: Appropriate and Suspicious Mood Description: Angry ( upset over losing his apartment), Flat and Sad Affect Description: Blunted and Sad Speech Pattern: Clear Memory Description: Episodic Impaired Hallucinations: None Thought Process: Rumination Thought Content: positive for Obsessional Thoughts Depressive Symptoms: Increased Anxiety and Increased Irritability Abnormal Motor Activity Signs and Symptoms: Psychomotor Retardation Judgement and Insight: improving insight and judgment patient stating he really has no choice except to step down [place] a [place] [facility] setting is hoping to get his own apartment again at some point Diagnostics Vital Signs (24Hr): Vital Signs - 24 hr 10/24/20 21:35 Pulse Rate 77 Blood Pressure 133/85 Body Mass Index 35.9 Labs Results: 10/11/20 11:50 08/26/20 08:11 Labs: Laboratory Results - last 48 hr 10/24/20 10/24/20 10/25/20 04:51 21:30 06:13 POC Glucose 145 H 156 H 129 H Medications Medications Current Medications Generic Name Dose Route Start Last Admin Trade Name Freq PRN Reason Stop Dose Admin Acetaminophen 650 mg 08/26/20 10:22 Acetaminophen 325 Mg Tablet PO Q6H PRN Pain, Mild (Pain Scale 1-3) Albuterol Sulfate 2 puff 08/05/20 19:32 10/09/20 19:32 Albuterol Sulfate 90 Mcg 8 Gm Inhaler INHALE 2 puff DAILY PRN Administration asthma Aspirin 81 mg 08/06/20 09:00 10/25/20 09:04 Aspirin 81 Mg Tab.Chew PO 81 mg DAILY OZZY Administration Atorvastatin Calcium 20 mg 08/05/20 21:00 10/24/20 21:36 Atorvastatin Calcium 20 Mg Tablet PO 20 mg BEDTIME OZZY Administration Clozapine 200 mg 10/19/20 19:00 10/24/20 18:58 Clozapine 100 Mg Tablet PO 200 mg DAILY@1900 OZZY Administration Clozapine 75 mg 10/19/20 19:00 10/24/20 18:57 Clozapine 25 Mg Tablet PO 75 mg DAILY@1900 OZZY Administration Divalproex Sodium 1,000 mg 10/19/20 19:00 10/24/20 19:03 Divalproex Sodium 500 Mg Tablet. PO Not Given DAILY@1900 [facility] Docusate Sodium 100 mg 08/05/20 21:00 10/25/20 09:04 Docusate Sodium 100 Mg Capsule PO 100 mg BID@0830,2100 OZZY Administration Lurasidone HCl 20 mg 10/19/20 09:00 10/25/20 09:04 Lurasidone Hcl 20 Mg Tablet PO 20 mg DAILY OZZY Administration Metoprolol Succinate 37.5 mg 08/05/20 21:00 10/25/20 09:04 Metoprolol Succinate Er 25 Mg Tab.Er.24h PO 37.5 mg BID OZZY Administration Protocol Olanzapine 10 mg 08/22/20 11:41 09/22/20 10:15 Olanzapine 10 Mg Vial IM 10 mg BID PRN Administration Psychosis Olanzapine 10 mg 09/11/20 14:06 09/23/20 14:50 Olanzapine Odt 10 Mg Tab.Rapdis TRANSLINGU 10 mg RQ6H PRN Administration Psychosis Quetiapine Fumarate 100 mg 08/16/20 22:10 09/20/20 00:39 Quetiapine Fumarate 100 Mg Tablet PO 100 mg BEDTIME PRN Administration Insomnia Topiramate 50 mg 08/05/20 21:00 10/24/20 21:36 Topiramate 25 Mg Tablet PO 50 mg BEDTIME OZZY Administration Vitamin D 25 mcg 08/06/20 09:00 10/25/20 09:04 Cholecalciferol (Vitamin D3) 25 Mcg Tablet PO 25 mcg DAILY OZZY Administration Allergies Allergies Allergy/AdvReac Type Severity Reaction Status Date / Time lithium [[place]] Allergy Severe TOXICITY Verified 07/28/20 18:08 thiothixene Allergy Severe SWELLING Verified 08/05/20 07:28 barium sulfate Allergy Intermediate NAUSEA & Verified 08/05/20 07:28 [BARIUM SULFATE] VOMITING haloperidol Allergy Intermediate MUSCLE Verified 07/28/20 18:08 TENSION IN LEGS benztropine Allergy Unknown benztropine Verified 08/05/20 07:28 mesylate- unknown diphenhydramine Allergy Unknown urinary Verified 08/05/20 07:28 [From Benadryl] retention fluphenazine Allergy Unknown UNKNOWN Verified 08/05/20 07:28 gabapentin [From NEURONTIN] Allergy Unknown UNKNOWN Verified 07/28/20 18:08 prolixen Allergy Unknown Unknown Uncoded 07/28/20 16:56 Assessment & Plan Assessment & Plan (1) Schizoaffective disorder: Status: Acute Code(s): F25.9 - Schizoaffective disorder, unspecified Assessment and Plan: patient is showing improvement on the common Latuda and clozapine check electrolytes and magnesium check EKG (2) Cardiac arrhythmia: Status: Acute Code(s): I49.9 - Cardiac arrhythmia, unspecified Assessment and Plan: check hall monitor electrolytes and magnesium Greater than 50% of the session was spent on counseling and/or coordination of care
[2020-10-25 21:00] VITALS: BP 134/68; PULSE 76; TEMP 36.3
[2020-10-25] MEDS: cloZAPine 25 MG TABLET 75 MG PO (21:08)
[2020-10-25] MEDS: cloZAPine 100 MG TABLET 200 MG PO (21:08)
[2020-10-25 21:09] VITALS: BP 134/68; PULSE 76
[2020-10-25] MEDS: Atorvastatin Calcium 20 MG TABLET PO (21:10)
[2020-10-25] MEDS: Topiramate 25 MG TABLET 50 MG PO (21:11)
[2020-10-26 06:10] VITALS: BP 129/81; PULSE 75; RESP 18; TEMP 36.6; O2SAT 96
[2020-10-26 06:32] LABS: Glucose, Whole Blood 124 mg/dL (60-115)
--- NOTE | 2020-10-26 08:00 | ECG_ITS ---
Test Reason : QTC CHECK Blood Pressure : / mmHG Vent. Rate : 073 BPM Atrial Rate : 073 BPM P-R Int : 170 ms QRS Dur : 122 ms QT Int : 464 ms P-R-T Axes : 055 034 172 degrees QTc Int : 511 ms Normal sinus rhythm Left ventricular hypertrophy with QRS widening and repolarization abnormality Abnormal ECG When compared with ECG of 21-OCT-2020 10:27, No significant change was found Referred By: Rocael Pacheco Electronically Signed By:BRYSON MAURO
[2020-10-26 08:12] LABS: MANUAL DIFF FLAG NO
[2020-10-26 08:15] LABS: Basophils Percent Auto 0.7 % (0-2); Eosinophils Absolute Auto 0.1 X10*3/uL (0.0-0.4); Eosinophils Percent Auto 1.9 % (0-4); Hematocrit 41.6 % (42-52); Hemoglobin 13.7 g/dl (14.0-18.0); Imm Gran Abs Auto 0.06 X10*3/uL (0.00-0.03); Lymphocytes Absolute Auto 1.5 X10*3/uL (1.2-4.9); Mean Corpuscular HGB Conc 32.9 g/dl (31.0-36.0); Mean Corpuscular Hemoglobin 28.3 pg (27.0-33.0); Mean Platelet Volume 11.9 fL (9.4-12.4); Monocytes Absolute Auto 0.7 X10*3/uL (0.1-1.2); Monocytes Percent Auto 12.3 % (2-11); Neutrophils Absolute Auto 3.5 X10*3/uL (2.0-8.3); Neutrophils Percent Auto 58.1 % (45-73); Platelet Count 123 X10*3/uL (160-400); Red Blood Count 4.84 X10*6/uL (4.60-5.80); White Blood Count 5.9 X10*3/uL (4.8-10.8)
[2020-10-26 08:37] VITALS: BP 129/81; PULSE 75
[2020-10-26] MEDS: Lurasidone HCl 20 MG TABLET PO (08:37)
[2020-10-26] MEDS: Docusate Sodium 100 MG CAPSULE PO ×2 (08:37→20:50)
[2020-10-26] MEDS: Metoprolol Succinate ER 25 MG TAB.ER.24H 37.5 MG PO ×2 (08:37→20:51)
[2020-10-26] MEDS: Cholecalciferol (Vitamin D3) 25 MCG TABLET PO (08:37)
[2020-10-26] MEDS: Aspirin 81 MG TAB.CHEW PO (08:37)
[2020-10-26 08:53] LABS: Alanine Aminotransferase 22 U/L (0-40); Albumin Level 3.9 g/dL (3.5-5.0); Alkaline Phosphatase 55 U/L (39-117); Anion Gap 13 (12-20); Aspartate Amino Transferase 17 U/L (5-37); Bilirubin Total < 0.2 mg/dL (0.0-1.0); Blood Urea Nitrogen 26 mg/dL (9-16); Calcium 8.9 mg/dL (8.4-10.2); Carbon Dioxide 23 mmol/L (22-29); Chloride 112 mmol/L (96-108); Creatinine Clr Calc Pharmacy 98.9; Estimated Glomerular Filt Rate > 60; Glucose Fasting 127 mg/dL (60-99); Magnesium 2.1 mg/dL (1.6-2.6); Potassium 4.3 mmol/l (3.3-5.1); Sodium 144 mmol/L (135-145); Total Protein 6.6 g/dL (6.5-8.0)
[2020-10-26 17:38] LABS: Glucose, Whole Blood 150 mg/dL (60-115)
--- NOTE | 2020-10-26 20:05 | HO.PSYCHPN ---
Subjective Subjective Date of Service: 10/26/20 Reason For Visit: Psychosis Subjective Notes: Haines Order Interim History: pt increased fx more logical no physical aggression Medication Compliance: Intermittent Side effects from medications: Yes Attending Groups: No Mental Status Exam Mental Status Exam Narrative: Gradually improving logic allergy and functioning able to communicate needs in a more coherent way. Asking about discharge not combative agreeable to nursing home Patient Appearance: Disheveled Patient Orientation: Person, Place and Situation Level of Consciousness: Awake Patient Behavior: Appropriate and Suspicious Mood Description: Angry ( upset over losing his apartment), Flat and Sad Affect Description: Blunted and Sad Speech Pattern: Clear Memory Description: Episodic Impaired Hallucinations: None Thought Process: Rumination Thought Content: positive for Obsessional Thoughts Depressive Symptoms: Increased Anxiety and Increased Irritability Abnormal Motor Activity Signs and Symptoms: Psychomotor Retardation Judgement and Insight: improving insight and judgment patient stating he really has no choice except to step down to a nursing home setting is hoping to get his own apartment again at some point Diagnostics Vital Signs (24Hr): Vital Signs - 24 hr 10/25/20 21:00 10/25/20 21:09 10/26/20 06:10 Temperature 97.3 F 97.9 F Pulse Rate 76 76 75 Respiratory Rate 18 Blood Pressure 134/68 134/68 129/81 Pulse Oximetry 96 10/26/20 08:37 Temperature Pulse Rate 75 Respiratory Rate Blood Pressure 129/81 Pulse Oximetry Body Mass Index 35.9 Labs Results: 10/26/20 07:57 10/26/20 07:57 Labs: Laboratory Results - last 48 hr 10/24/20 10/25/20 10/26/20 21:30 06:13 06:23 WBC RBC Hgb Hct MCV MCH MCHC RDW Plt Count MPV Immature Gran % (Auto) Neut % (Auto) Lymph % (Auto) [place] % (Auto) Eos % (Auto) Baso % (Auto) Lymph # (Auto) [place] # (Auto) Eos # (Auto) Baso # (Auto) Abs Immat Gran (auto) Absolute Neuts (auto) Absolute Nucleated RBC Nucleated RBC % (auto) Sodium Potassium Chloride Carbon Dioxide Anion Gap BUN Creatinine Estim Creat Clear Calc Estimated GFR POC Glucose 156 H 129 H 124 H Fasting Glucose Calcium Magnesium Total Bilirubin AST ALT Alkaline Phosphatase Total Protein Albumin 10/26/20 10/26/20 10/26/20 07:57 07:57 16:49 WBC 5.9 RBC 4.84 Hgb 13.7 L Hct 41.6 L MCV 86.0 MCH 28.3 MCHC 32.9 RDW 14.0 Plt Count 123 L MPV 11.9 Immature Gran % (Auto) 1.0 H Neut % (Auto) 58.1 Lymph % (Auto) 26.0 [place] % (Auto) 12.3 H Eos % (Auto) 1.9 Baso % (Auto) 0.7 Lymph # (Auto) 1.5 [place] # (Auto) 0.7 Eos # (Auto) 0.1 Baso # (Auto) 0.0 Abs Immat Gran (auto) 0.06 H Absolute Neuts (auto) 3.5 Absolute Nucleated RBC 0.000 Nucleated RBC % (auto) 0.0 Sodium 144 Potassium 4.3 Chloride 112 H Carbon Dioxide 23 Anion Gap 13 BUN 26 H Creatinine 1.02 Estim Creat Clear Calc 98.9 Estimated GFR > 60 POC Glucose 150 H Fasting Glucose 127 H Calcium 8.9 Magnesium 2.1 Total Bilirubin < 0.2 AST 17 ALT 22 Alkaline Phosphatase 55 Total Protein 6.6 Albumin 3.9 Medications Medications Current Medications Generic Name Dose Route Start Last Admin Trade Name Freq PRN Reason Stop Dose Admin Acetaminophen 650 mg 08/26/20 10:22 Acetaminophen 325 Mg Tablet PO Q6H PRN Pain, Mild (Pain Scale 1-3) Albuterol Sulfate 2 puff 08/05/20 19:32 10/09/20 19:32 Albuterol Sulfate 90 Mcg 8 Gm Inhaler INHALE 2 puff DAILY PRN Administration asthma Aspirin 81 mg 08/06/20 09:00 10/26/20 08:37 Aspirin 81 Mg Tab.Chew PO 81 mg DAILY OZZY Administration Atorvastatin Calcium 20 mg 08/05/20 21:00 10/25/20 21:10 Atorvastatin Calcium 20 Mg Tablet PO 20 mg BEDTIME OZZY Administration Clozapine 200 mg 10/19/20 19:00 10/25/20 21:08 Clozapine 100 Mg Tablet PO 200 mg DAILY@1900 OZZY Administration Clozapine 75 mg 10/19/20 19:00 10/25/20 21:08 Clozapine 25 Mg Tablet PO 75 mg DAILY@1900 OZZY Administration Divalproex Sodium 1,000 mg 10/19/20 19:00 10/25/20 21:08 Divalproex Sodium 500 Mg Tablet. PO Not Given DAILY@1900 [facility] Docusate Sodium 100 mg 08/05/20 21:00 10/26/20 08:37 Docusate Sodium 100 Mg Capsule PO 100 mg BID@0830,2100 [facility] Administration Lurasidone HCl 20 mg 10/19/20 09:00 10/26/20 08:37 Lurasidone Hcl 20 Mg Tablet PO 20 mg DAILY OZZY Administration Metoprolol Succinate 37.5 mg 08/05/20 21:00 10/26/20 08:37 Metoprolol Succinate Er 25 Mg Tab.Er.24h PO 37.5 mg BID OZZY Administration Protocol Olanzapine 10 mg 08/22/20 11:41 09/22/20 10:15 Olanzapine 10 Mg Vial IM 10 mg BID PRN Administration Psychosis Olanzapine 10 mg 09/11/20 14:06 09/23/20 14:50 Olanzapine Odt 10 Mg Tab.Rapdis TRANSLINGU 10 mg RQ6H PRN Administration Psychosis Quetiapine Fumarate 100 mg 08/16/20 22:10 09/20/20 00:39 Quetiapine Fumarate 100 Mg Tablet PO 100 mg BEDTIME PRN Administration Insomnia Topiramate 50 mg 08/05/20 21:00 10/25/20 21:11 Topiramate 25 Mg Tablet PO 50 mg BEDTIME OZZY Administration Vitamin D 25 mcg 08/06/20 09:00 10/26/20 08:37 Cholecalciferol (Vitamin D3) 25 Mcg Tablet PO 25 mcg DAILY OZZY Administration Allergies Allergies Allergy/AdvReac Type Severity Reaction Status Date / Time lithium [[place]] Allergy Severe TOXICITY Verified 07/28/20 18:08 thiothixene Allergy Severe SWELLING Verified 08/05/20 07:28 barium sulfate Allergy Intermediate NAUSEA & Verified 08/05/20 07:28 [BARIUM SULFATE] VOMITING haloperidol Allergy Intermediate MUSCLE Verified 07/28/20 18:08 TENSION IN LEGS benztropine Allergy Unknown benztropine Verified 08/05/20 07:28 mesylate- unknown diphenhydramine Allergy Unknown urinary Verified 08/05/20 07:28 [From Benadryl] retention fluphenazine Allergy Unknown UNKNOWN Verified 08/05/20 07:28 gabapentin [From NEURONTIN] Allergy Unknown UNKNOWN Verified 07/28/20 18:08 prolixen Allergy Unknown Unknown Uncoded 07/28/20 16:56 Assessment & Plan Assessment & Plan (1) Schizoaffective disorder: Qualifiers: Schizoaffective disorder type: bipolar Qualified Code(s): F25.0 - Schizoaffective disorder, bipolar type Status: Acute Code(s): F25.9 - Schizoaffective disorder, unspecified Assessment and Plan: patient is showing improvement on the common Latuda and clozapine electrolytes magnesium and calcium within normal limits to get cardiology consult review EKG and try to get a risk assessment patient clearly doing better on current regimen lower clozapine to 250 mg (2) Cardiac arrhythmia: Qualifiers: Arrhythmia type: unspecified cardiac arrhythmia Qualified Code(s): I49.9 - Cardiac arrhythmia, unspecified Status: Acute Code(s): I49.9 - Cardiac arrhythmia, unspecified Assessment and Plan: check EKG electrolytes Valeria in [facility] be seen within normal limits will get cardiology consult Greater than 50% of the session was spent on counseling and/or coordination of care Patient educated on: medication risk/benefits Reason for contiued inpatient stay Substantial Risk for: rapid decompensation and med/psych decompensation
[2020-10-26 20:40] VITALS: BP 113/74; PULSE 82; TEMP 36.8
[2020-10-26] MEDS: cloZAPine 25 MG TABLET 75 MG PO (20:50)
[2020-10-26] MEDS: cloZAPine 100 MG TABLET 200 MG PO (20:50)
[2020-10-26 20:51] VITALS: BP 132/63; PULSE 80
[2020-10-26] MEDS: Atorvastatin Calcium 20 MG TABLET PO (20:52)
[2020-10-26] MEDS: Topiramate 25 MG TABLET 50 MG PO (20:52)
[2020-10-27 05:07] LABS: Glucose, Whole Blood 128 mg/dL (60-115)
[2020-10-27 05:50] VITALS: BP 103/59; PULSE 71; RESP 20; TEMP 36.3; O2SAT 95
[2020-10-27 08:32] VITALS: BP 103/59; PULSE 71
[2020-10-27] MEDS: Metoprolol Succinate ER 25 MG TAB.ER.24H 37.5 MG PO ×2 (08:32→19:58)
[2020-10-27] MEDS: Lurasidone HCl 20 MG TABLET PO (08:32)
[2020-10-27] MEDS: Aspirin 81 MG TAB.CHEW PO (08:32)
[2020-10-27] MEDS: Docusate Sodium 100 MG CAPSULE PO ×2 (08:33→20:00)
[2020-10-27] MEDS: Cholecalciferol (Vitamin D3) 25 MCG TABLET PO (08:33)
[2020-10-27 18:00] VITALS: BP 135/75; PULSE 95; TEMP 35.9
[2020-10-27] MEDS: cloZAPine 100 MG TABLET 200 MG PO (19:55)
[2020-10-27] MEDS: cloZAPine 25 MG TABLET 50 MG PO (19:56)
[2020-10-27 19:58] VITALS: BP 135/75; PULSE 95
[2020-10-27] MEDS: Atorvastatin Calcium 20 MG TABLET PO (20:00)
[2020-10-27] MEDS: Topiramate 25 MG TABLET 50 MG PO (20:00)
[2020-10-27 20:09] LABS: Glucose, Whole Blood 202 mg/dL (60-115)
--- NOTE | 2020-10-27 20:56 | HO.PSYCHPN ---
Subjective Subjective Date of Service: 10/27/20 Reason For Visit: Psychosis Subjective Notes: Haines Order Interim History: Patient come articulate about wanting to leave the hospital. Taking clozapine Topamax Latuda has been refusing Depakote Medication Compliance: Intermittent Side effects from medications: Yes Mental Status Exam Mental Status Exam Patient Appearance: Disheveled Patient Orientation: Person, Place and Situation Level of Consciousness: Awake Patient Behavior: Appropriate and Suspicious Mood Description: Angry ( upset over losing his apartment), Flat and Sad Affect Description: Blunted and Sad Speech Pattern: Clear Memory Description: Episodic Impaired Hallucinations: None Thought Process: Rumination Thought Content: positive for Obsessional Thoughts Depressive Symptoms: Increased Anxiety and Increased Irritability Abnormal Motor Activity Signs and Symptoms: Psychomotor Retardation Judgement and Insight: improving insight and judgment patient stating he really has no choice except to step down to a long-term setting is hoping to get his own apartment again at some point Diagnostics Vital Signs (24Hr): Vital Signs - 24 hr 10/27/20 05:50 10/27/20 08:32 10/27/20 19:58 Temperature 97.3 F Pulse Rate 71 71 95 Respiratory Rate 20 Blood Pressure 103/59 L 103/59 L 135/75 Pulse Oximetry 95 Body Mass Index 35.9 Labs Results: 10/26/20 07:57 10/26/20 07:57 Labs: Laboratory Results - last 48 hr 10/26/20 10/26/20 10/26/20 06:23 07:57 07:57 WBC 5.9 RBC 4.84 Hgb 13.7 L Hct 41.6 L MCV 86.0 MCH 28.3 MCHC 32.9 RDW 14.0 Plt Count 123 L MPV 11.9 Immature Gran % (Auto) 1.0 H Neut % (Auto) 58.1 Lymph % (Auto) 26.0 [place] % (Auto) 12.3 H Eos % (Auto) 1.9 Baso % (Auto) 0.7 Lymph # (Auto) 1.5 [place] # (Auto) 0.7 Eos # (Auto) 0.1 Baso # (Auto) 0.0 Abs Immat Gran (auto) 0.06 H Absolute Neuts (auto) 3.5 Absolute Nucleated RBC 0.000 Nucleated RBC % (auto) 0.0 Sodium 144 Potassium 4.3 Chloride 112 H Carbon Dioxide 23 Anion Gap 13 BUN 26 H Creatinine 1.02 Estim Creat Clear Calc 98.9 Estimated GFR > 60 POC Glucose 124 H Fasting Glucose 127 H Calcium 8.9 Magnesium 2.1 Total Bilirubin < 0.2 AST 17 ALT 22 Alkaline Phosphatase 55 Total Protein 6.6 Albumin 3.9 10/26/20 10/27/20 10/27/20 16:49 05:04 20:05 WBC RBC Hgb Hct MCV MCH MCHC RDW Plt Count MPV Immature Gran % (Auto) Neut % (Auto) Lymph % (Auto) [place] % (Auto) Eos % (Auto) Baso % (Auto) Lymph # (Auto) [place] # (Auto) Eos # (Auto) Baso # (Auto) Abs Immat Gran (auto) Absolute Neuts (auto) Absolute Nucleated RBC Nucleated RBC % (auto) Sodium Potassium Chloride Carbon Dioxide Anion Gap BUN Creatinine Estim Creat Clear Calc Estimated GFR POC Glucose 150 H 128 H 202 H Fasting Glucose Calcium Magnesium Total Bilirubin AST ALT Alkaline Phosphatase Total Protein Albumin Medications Medications Current Medications Generic Name Dose Route Start Last Admin Trade Name Freq PRN Reason Stop Dose Admin Acetaminophen 650 mg 08/26/20 10:22 Acetaminophen 325 Mg Tablet PO Q6H PRN Pain, Mild (Pain Scale 1-3) Albuterol Sulfate 2 puff 08/05/20 19:32 10/09/20 19:32 Albuterol Sulfate 90 Mcg 8 Gm Inhaler INHALE 2 puff DAILY PRN Administration asthma Aspirin 81 mg 08/06/20 09:00 10/27/20 08:32 Aspirin 81 Mg Tab.Chew PO 81 mg DAILY OZZY Administration Atorvastatin Calcium 20 mg 08/05/20 21:00 10/27/20 20:00 Atorvastatin Calcium 20 Mg Tablet PO 20 mg BEDTIME OZZY Administration Clozapine 200 mg 10/19/20 19:00 10/27/20 19:55 Clozapine 100 Mg Tablet PO 200 mg DAILY@1900 OZZY Administration Clozapine 50 mg 10/27/20 19:00 10/27/20 19:56 Clozapine 25 Mg Tablet PO 50 mg DAILY@1900 OZZY Administration Divalproex Sodium 1,000 mg 10/19/20 19:00 10/27/20 19:55 Divalproex Sodium 500 Mg Tablet.Dr PO Not Given DAILY@1899 [facility] Docusate Sodium 100 mg 08/05/20 21:00 10/27/20 20:00 Docusate Sodium 100 Mg Capsule PO 100 mg BID@0830,2100 OZZY Administration Lurasidone HCl 20 mg 10/19/20 09:00 10/27/20 08:32 Lurasidone Hcl 20 Mg Tablet PO 20 mg DAILY OZZY Administration Metoprolol Succinate 37.5 mg 08/05/20 21:00 10/27/20 19:58 Metoprolol Succinate Er 25 Mg Tab.Er.24h PO 37.5 mg BID OZZY Administration Protocol Olanzapine 10 mg 08/22/20 11:41 09/22/20 10:15 Olanzapine 10 Mg Vial IM 10 mg BID PRN Administration Psychosis Olanzapine 10 mg 09/11/20 14:06 09/23/20 14:50 Olanzapine Odt 10 Mg Tab.Rapdis TRANSLINGU 10 mg RQ6H PRN Administration Psychosis Quetiapine Fumarate 100 mg 08/16/20 22:10 09/20/20 00:39 Quetiapine Fumarate 100 Mg Tablet PO 100 mg BEDTIME PRN Administration Insomnia Topiramate 50 mg 08/05/20 21:00 10/27/20 20:00 Topiramate 25 Mg Tablet PO 50 mg BEDTIME OZZY Administration Vitamin D 25 mcg 08/06/20 09:00 10/27/20 08:33 Cholecalciferol (Vitamin D3) 25 Mcg Tablet PO 25 mcg DAILY OZZY Administration Allergies Allergies Allergy/AdvReac Type Severity Reaction Status Date / Time lithium [[place]] Allergy Severe TOXICITY Verified 07/28/20 18:08 thiothixene Allergy Severe SWELLING Verified 08/05/20 07:28 barium sulfate Allergy Intermediate NAUSEA & Verified 08/05/20 07:28 [BARIUM SULFATE] VOMITING haloperidol Allergy Intermediate MUSCLE Verified 07/28/20 18:08 TENSION IN LEGS benztropine Allergy Unknown benztropine Verified 08/05/20 07:28 mesylate- unknown diphenhydramine Allergy Unknown urinary Verified 08/05/20 07:28 [From Benadryl] retention fluphenazine Allergy Unknown UNKNOWN Verified 08/05/20 07:28 gabapentin [From NEURONTIN] Allergy Unknown UNKNOWN Verified 07/28/20 18:08 prolixen Allergy Unknown Unknown Uncoded 07/28/20 16:56 Assessment & Plan Assessment & Plan (1) Schizoaffective disorder: Qualifiers: Schizoaffective disorder type: bipolar Qualified Code(s): F25.0 - Schizoaffective disorder, bipolar type Status: Acute Code(s): F25.9 - Schizoaffective disorder, unspecified Assessment and Plan: continue Latuda clozapine repeat EKG cardiology consult pending (2) Cardiac arrhythmia: Qualifiers: Arrhythmia type: unspecified cardiac arrhythmia Qualified Code(s): I49.9 - Cardiac arrhythmia, unspecified Status: Acute Code(s): I49.9 - Cardiac arrhythmia, unspecified Greater than 50% of the session was spent on counseling and/or coordination of care
[2020-10-28 06:05] VITALS: BP 121/72; PULSE 81; RESP 20; TEMP 36.4; O2SAT 98
[2020-10-28 06:41] LABS: Glucose, Whole Blood 142 mg/dL (60-115)
--- NOTE | 2020-10-28 08:00 | ECG_ITS ---
Test Reason : QT Blood Pressure : / mmHG Vent. Rate : 079 BPM Atrial Rate : 079 BPM P-R Int : 176 ms QRS Dur : 118 ms QT Int : 442 ms P-R-T Axes : 048 040 188 degrees QTc Int : 506 ms Normal sinus rhythm Left ventricular hypertrophy with QRS widening and repolarization abnormality Prolonged QT Abnormal ECG When compared with ECG of 26-OCT-2020 11:40, No significant change was found Referred By: Rocael Pacheco Electronically Signed By:BRYSON MAURO
[2020-10-28] MEDS: Cholecalciferol (Vitamin D3) 25 MCG TABLET PO (08:54)
[2020-10-28 08:55] VITALS: BP 121/72; PULSE 81
[2020-10-28] MEDS: Aspirin 81 MG TAB.CHEW PO (08:55)
[2020-10-28] MEDS: Docusate Sodium 100 MG CAPSULE PO ×2 (08:55→20:19)
[2020-10-28] MEDS: Lurasidone HCl 20 MG TABLET PO (08:55)
[2020-10-28] MEDS: Metoprolol Succinate ER 25 MG TAB.ER.24H 37.5 MG PO ×2 (08:55→20:20)
--- NOTE | 2020-10-28 09:32 | HO.PSYCHPN ---
Subjective Subjective Date of Service: 10/28/20 Reason For Visit: Psychosis Subjective Notes: Conditional Voluntary Interim History: Patient continues to be relatively stable out of bed more cooperative he remains tangential disorganized with intermittent paranoid preoccupations but much less agitated. Hopeful for discharge Medication Compliance: Intermittent Mental Status Exam Mental Status Exam Patient Appearance: Disheveled Patient Orientation: Person, Place and Situation Level of Consciousness: Awake and Drowsy Patient Behavior: Appropriate and Suspicious Mood Description: Angry ( upset over losing his apartment), Flat and Sad Affect Description: Blunted and Sad Speech Pattern: Clear Memory Description: Episodic Impaired Hallucinations: None Thought Process: Rumination Thought Content: positive for Obsessional Thoughts Depressive Symptoms: Increased Anxiety and Increased Irritability Abnormal Motor Activity Signs and Symptoms: Psychomotor Retardation Judgement and Insight: improving insight and judgment patient stating he really has no choice except to step down to a fdc setting is hoping to get his own apartment again at some point Diagnostics Vital Signs (24Hr): Vital Signs - 24 hr 10/27/20 18:00 10/27/20 19:58 10/28/20 06:05 Temperature 96.7 F L 97.6 F Pulse Rate 95 95 81 Respiratory Rate 20 Blood Pressure 135/75 135/75 121/72 Pulse Oximetry 98 10/28/20 08:55 Temperature Pulse Rate 81 Respiratory Rate Blood Pressure 121/72 Pulse Oximetry Body Mass Index 35.9 Labs Results: 10/26/20 07:57 10/26/20 07:57 Labs: Laboratory Results - last 48 hr 10/26/20 10/27/20 10/27/20 16:49 05:04 20:05 POC Glucose 150 H 128 H 202 H 10/28/20 06:07 POC Glucose 142 H Medications Medications Current Medications Generic Name Dose Route Start Last Admin Trade Name Freq PRN Reason Stop Dose Admin Acetaminophen 650 mg 08/26/20 10:22 Acetaminophen 325 Mg Tablet PO Q6H PRN Pain, Mild (Pain Scale 1-3) Albuterol Sulfate 2 puff 08/05/20 19:32 10/09/20 19:32 Albuterol Sulfate 90 Mcg 8 Gm Inhaler INHALE 2 puff DAILY PRN Administration asthma Aspirin 81 mg 08/06/20 09:00 10/28/20 08:55 Aspirin 81 Mg Tab.Chew PO 81 mg DAILY OZZY Administration Atorvastatin Calcium 20 mg 08/05/20 21:00 10/27/20 20:00 Atorvastatin Calcium 20 Mg Tablet PO 20 mg BEDTIME OZZY Administration Clozapine 200 mg 10/19/20 19:00 10/27/20 19:55 Clozapine 100 Mg Tablet PO 200 mg DAILY@190 OZZY Administration Clozapine 50 mg 10/27/20 19:00 10/27/20 19:56 Clozapine 25 Mg Tablet PO 50 mg DAILY@190 [facility] Administration Divalproex Sodium 1,000 mg 10/19/20 19:00 10/27/20 19:55 Divalproex Sodium 500 Mg Tablet.Dr PO Not Given DAILY@1899 [facility] Docusate Sodium 100 mg 08/05/20 21:00 10/28/20 08:55 Docusate Sodium 100 Mg Capsule PO 100 mg BID@0830,2100 [facility] Administration Lurasidone HCl 20 mg 10/19/20 09:00 10/28/20 08:55 Lurasidone Hcl 20 Mg Tablet PO 20 mg DAILY OZZY Administration Metoprolol Succinate 37.5 mg 08/05/20 21:00 10/28/20 08:55 Metoprolol Succinate Er 25 Mg Tab.Er.24h PO 37.5 mg BID OZZY Administration Protocol Olanzapine 10 mg 08/22/20 11:41 09/22/20 10:15 Olanzapine 10 Mg Vial IM 10 mg BID PRN Administration Psychosis Olanzapine 10 mg 09/11/20 14:06 09/23/20 14:50 Olanzapine Odt 10 Mg Tab.Rapdis TRANSLINGU 10 mg RQ6H PRN Administration Psychosis Quetiapine Fumarate 100 mg 08/16/20 22:10 09/20/20 00:39 Quetiapine Fumarate 100 Mg Tablet PO 100 mg BEDTIME PRN Administration Insomnia Topiramate 50 mg 08/05/20 21:00 10/27/20 20:00 Topiramate 25 Mg Tablet PO 50 mg BEDTIME OZZY Administration Vitamin D 25 mcg 08/06/20 09:00 10/28/20 08:54 Cholecalciferol (Vitamin D3) 25 Mcg Tablet PO 25 mcg DAILY OZZY Administration Allergies Allergies Allergy/AdvReac Type Severity Reaction Status Date / Time lithium [[place]] Allergy Severe TOXICITY Verified 07/28/20 18:08 thiothixene Allergy Severe SWELLING Verified 08/05/20 07:28 barium sulfate Allergy Intermediate NAUSEA & Verified 08/05/20 07:28 [BARIUM SULFATE] VOMITING haloperidol Allergy Intermediate MUSCLE Verified 07/28/20 18:08 TENSION IN LEGS benztropine Allergy Unknown benztropine Verified 08/05/20 07:28 mesylate- unknown diphenhydramine Allergy Unknown urinary Verified 08/05/20 07:28 [From Benadryl] retention fluphenazine Allergy Unknown UNKNOWN Verified 08/05/20 07:28 gabapentin [From NEURONTIN] Allergy Unknown UNKNOWN Verified 07/28/20 18:08 prolixen Allergy Unknown Unknown Uncoded 07/28/20 16:56 Assessment & Plan Assessment & Plan (1) Hypertension: Status: Acute Code(s): I10 - Essential (primary) hypertension (2) Abnormal EKG: Status: Acute Code(s): R94.31 - Abnormal electrocardiogram [ECG] [EKG] (3) Schizoaffective disorder: Qualifiers: Schizoaffective disorder type: bipolar Qualified Code(s): F25.0 - Schizoaffective disorder, bipolar type Status: Acute Code(s): F25.9 - Schizoaffective disorder, unspecified Assessment and Plan: cardiology consult read and appreciated EKG reviewed by Dr. Arriaza did not recommend change in antipsychotics at this time. Clozapine has been lowered to 150 mg Latuda 20 mg metoprolol 50 b.i.d. history of hypertensive cardiomyopathy do not recommend acute changes at this time referral to fdc setting Greater than 50% of the session was spent on counseling and/or coordination of care
--- NOTE | 2020-10-28 10:34 | PM.CNCAR ---
History of Present Illness History of Present Illness Date of Service: 10/28/20 Consult reason: other (abnormal EKG) Chief complaint: Psychosis Narrative: This is a cardiology consultation to assess his EKG and cardiac status in the setting of receiving antipsychotics. He used to see Dr. Hernandez in the past but then he subsequently switched over to [facility]. However, because of his psychiatric issues, I am not had clear if he follows up at all. He has a chronically abnormal looking EKG. Otherwise he underwent cardiac catheterization in 2017 but that did not reveal any coronary arteries in fact the report stated normal coronaries. When I questioned him about cardiac symptoms, patient is very tangential and really does not reply appropriately. He states that he always has some shortness of breath and some random chest pains but again his history is very unreliable. Review of Systems Review of Systems: Yes Unobtainable due to mental status [facility] Past Medical History Medical History (Updated 10/28/20 @ 10:40 by Manuel Arriaza MD) Aggression Cardiac arrhythmia CHF (congestive heart failure) Coronary artery disease HOCM (hypertrophic obstructive cardiomyopathy) Hypertension Myocardial infarction Schizoaffective disorder Functional capacity: independent ambulation Family History Family History Father Medical history unknown Mother Medical history unknown Sister Alive and well Surgical History Surgical History History of intestinal surgery History of transurethral resection of prostate Social History Social History Household Members: Unknown / Unable to assess Housing: Apartment Do you presently have visiting nurse or other home services: Yes Alcohol intake: unknown Smoking Status: Former smoker Second Hand Smoke Exposure: No Use of substances other than those prescribed or required for medical reasons: Unknown Substance Use Type: Unknown Currently Displaying Signs/Symptoms of Drug Intoxication Withdrawal: No Advance Directives: No Advance Directives Information Provided: No Do you have thoughts of harming others: None Do you have a plan to hurt others: No Plan Recently lost weight without trying: No Sexual orientation: Straight/Heterosexual Meds Allergies Allergy/AdvReac Type Severity Reaction Status Date / Time lithium [[place]] Allergy Severe TOXICITY Verified 07/28/20 18:08 thiothixene Allergy Severe SWELLING Verified 08/05/20 07:28 barium sulfate Allergy Intermediate NAUSEA & Verified 08/05/20 07:28 [BARIUM SULFATE] VOMITING haloperidol Allergy Intermediate MUSCLE Verified 07/28/20 18:08 TENSION IN LEGS benztropine Allergy Unknown benztropine Verified 08/05/20 07:28 mesylate- unknown diphenhydramine Allergy Unknown urinary Verified 08/05/20 07:28 [From Benadryl] retention fluphenazine Allergy Unknown UNKNOWN Verified 08/05/20 07:28 gabapentin [From NEURONTIN] Allergy Unknown UNKNOWN Verified 07/28/20 18:08 prolixen Allergy Unknown Unknown Uncoded 07/28/20 16:56 Home Medications Medication Instructions Recorded Confirmed Type cholecalciferol (vitamin D3) 25 mcg PO DAILY 07/07/20 08/05/20 History metoprolol succinate 37.5 mg PO BID 07/28/20 08/05/20 History albuterol sulfate 2 puff INHALATION DAILY PRN 08/05/20 08/05/20 History lorazepam 1 mg PO DAILY PRN 08/05/20 08/05/20 History quetiapine 100 mg PO BEDTIME 08/05/20 08/05/20 History quetiapine 100 mg PO DAILY PRN 08/05/20 08/05/20 History Physical Exam Vital Signs: Vital Signs: Last Vital Signs Temp 97.6 F 10/28/20 06:05 Pulse 81 10/28/20 08:55 Resp 20 10/28/20 06:05 BP 121/72 10/28/20 08:55 Pulse Ox 98 10/28/20 06:05 Body Mass Index 35.9 Const: General: cooperative, comfortable and no acute distress Orientation/consciousness: patient oriented x3 HENMT: Other: Unremarkable Neck: Neck: Yes normal visual inspection Chest: Chest palpation & inspection: normal inspection of the chest Resp: Auscultation: clear to auscultation bilaterally, no crackles and no wheezes Cardio: Jugular venous distension: no JVD Palpation: normal PMI Heart sounds: S1 normal heart sound present, S2 normal heart sound present, no gallops, Murmur heart sound present systolic early and I/ and no rubs GI: Palpation (GI): Soft to palpation Back/Spine/Pelvis: Other: unremarkable Skin: General skin exam: no rashes or lesions noted Neuro: General: patient oriented x3 Extrem: General: Yes no clubbing, cyanosis or edema Psych: Mental Status: mental status grossly normal Results Labs and Meds Result diagrams: 10/26/20 07:57 10/26/20 07:57 Lab results: Laboratory Results - last 24 hr 10/27/20 10/28/20 20:05 06:07 POC Glucose 202 H 142 H ECG Attestation: I personally reviewed and interpreted this ECG as follows: Interpretation: EKG with sinus rhythm at 90/Min with inverted T-waves across the precordial leads as well as lateral leads and somewhat in the inferior leads too. QTc interval is prolonged at 496 milliseconds. Overall, the EKGs are fairly similar to prior Assessment and Plan (1) Abnormal EKG: Status: Acute (2) HOCM (hypertrophic obstructive cardiomyopathy): Status: Acute Prior cardiac data reviewed. He underwent cardiac catheterization in 2017. That showed normal coronary arteries. Echocardiogram was reviewed from 2018. That showed normal LVEF, 65-70% with severe left ventricular hypertrophy and systolic anterior motion of mitral valve; dynamic LVOT obstruction with peak resting gradient of 76 mm Hg across LVOT. There was mild mitral regurgitation. His blood pressure seems fairly normal. He could be having hypertrophic cardiomyopathy but I am not entirely clear if he went through full workup, mainly because of his psychiatric issues. In this current setting, no specific recommendations. He can be treated as you would otherwise do from psychiatric standpoint. His QTC is slightly on the higher side but not overtly concerning. This can be followed up periodically to ensure it stays within 500 milliseconds or so. Otherwise, when he is more amenable, probably see his own relish blender. In the interim, continue the beta-blockers.
[2020-10-28 18:00] VITALS: BP 142/77; PULSE 78; TEMP 36.3
[2020-10-28] MEDS: Topiramate 25 MG TABLET 50 MG PO (20:19)
[2020-10-28 20:20] VITALS: BP 142/77; PULSE 78
[2020-10-28] MEDS: cloZAPine 100 MG TABLET 200 MG PO (20:20)
[2020-10-28] MEDS: Atorvastatin Calcium 20 MG TABLET PO (20:20)
[2020-10-28] MEDS: cloZAPine 25 MG TABLET 50 MG PO (20:21)
[2020-10-28] MEDS: Albuterol Sulfate 90 MCG 8 GM INHALER 2 PUFF INHALE (20:24)
[2020-10-28 20:34] LABS: Glucose, Whole Blood 207 mg/dL (60-115)
[2020-10-29 04:56] LABS: Glucose, Whole Blood 125 mg/dL (60-115)
[2020-10-29 06:55] VITALS: BP 131/69; PULSE 77; RESP 18; TEMP 36.1
[2020-10-29] MEDS: Docusate Sodium 100 MG CAPSULE PO ×2 (08:35→20:25)
[2020-10-29] MEDS: Lurasidone HCl 20 MG TABLET PO (08:35)
[2020-10-29] MEDS: Cholecalciferol (Vitamin D3) 25 MCG TABLET PO (08:35)
[2020-10-29 08:36] VITALS: BP 106/62; PULSE 79
[2020-10-29] MEDS: Aspirin 81 MG TAB.CHEW PO (08:36)
[2020-10-29] MEDS: Metoprolol Succinate ER 50 MG TAB.ER.24H PO ×2 (08:36→20:24)
[2020-10-29 16:53] LABS: Glucose, Whole Blood 170 mg/dL (60-115)
[2020-10-29 18:00] VITALS: BP 139/74; PULSE 77; TEMP 36.8
[2020-10-29] MEDS: Topiramate 25 MG TABLET 50 MG PO (20:23)
[2020-10-29] MEDS: cloZAPine 25 MG TABLET 50 MG PO (20:23)
[2020-10-29 20:24] VITALS: BP 139/74; PULSE 77
[2020-10-29] MEDS: cloZAPine 100 MG TABLET 200 MG PO (20:24)
[2020-10-29] MEDS: Atorvastatin Calcium 20 MG TABLET PO (20:24)
--- NOTE | 2020-10-29 21:05 | P.PNPSI_ITS ---
Subjective Subjective Date of Service: 10/29/20 Reason For Visit: Psychosis Subjective Notes: [place] Order Medication Compliance: Intermittent Side effects from medications: Yes Mental Status Exam Mental Status Exam Patient Appearance: Disheveled Patient Orientation: Person, Place and Situation Level of Consciousness: Awake and Drowsy Patient Behavior: Appropriate and Suspicious Mood Description: Angry ( upset over losing his apartment), Flat and Sad Affect Description: Blunted and Sad Speech Pattern: Clear Memory Description: Episodic Impaired Hallucinations: None Thought Process: Rumination Thought Content: positive for Obsessional Thoughts Depressive Symptoms: Increased Anxiety and Increased Irritability Abnormal Motor Activity Signs and Symptoms: Psychomotor Retardation Judgement and Insight: improving insight and judgment patient stating he really has no choice except to step down to a [facility] setting is hoping to get his own apartment again at some point Diagnostics Vital Signs (24Hr): Vital Signs - 24 hr 10/29/20 06:55 10/29/20 08:36 10/29/20 20:24 Temperature 96.9 F Pulse Rate 77 79 77 Respiratory Rate 18 Blood Pressure 131/69 106/62 139/74 Body Mass Index 35.9 Labs Results: 10/26/20 07:57 10/26/20 07:57 Labs: Laboratory Results - last 48 hr 10/28/20 10/28/20 10/29/20 06:07 20:30 04:52 POC Glucose 142 H 207 H 125 H 10/29/20 16:50 POC Glucose 170 H Medications Medications Current Medications Generic Name Dose Route Start Last Admin Trade Name Freq PRN Reason Stop Dose Admin Acetaminophen 650 mg 08/26/20 10:22 Acetaminophen 325 Mg Tablet PO Q6H PRN Pain, Mild (Pain Scale 1-3) Albuterol Sulfate 2 puff 08/05/20 19:32 10/28/20 20:24 Albuterol Sulfate 90 Mcg 8 Gm Inhaler INHALE 2 puff DAILY PRN Administration asthma Aspirin 81 mg 08/06/20 09:00 10/29/20 08:36 Aspirin 81 Mg Tab.Chew PO 81 mg DAILY MILY Administration Atorvastatin Calcium 20 mg 08/05/20 21:00 10/29/20 20:24 Atorvastatin Calcium 20 Mg Tablet PO 20 mg BEDTIME MILY Administration Clozapine 200 mg 10/19/20 19:00 10/29/20 20:24 Clozapine 100 Mg Tablet PO 200 mg DAILY@1900 MILY Administration Clozapine 50 mg 10/27/20 19:00 10/29/20 20:23 Clozapine 25 Mg Tablet PO 50 mg DAILY@1900 [facility] Administration Divalproex Sodium 500 mg 10/29/20 19:00 10/29/20 20:29 Divalproex Sodium 500 Mg Tablet.Dr PO Not Given DAILY@1900 [facility] Docusate Sodium 100 mg 08/05/20 21:00 10/29/20 20:25 Docusate Sodium 100 Mg Capsule PO 100 mg BID@0830,2100 [facility] Administration Lurasidone HCl 20 mg 10/19/20 09:00 10/29/20 08:35 Lurasidone Hcl 20 Mg Tablet PO 20 mg DAILY MILY Administration Metoprolol Succinate 50 mg 10/29/20 09:00 10/29/20 20:24 Metoprolol Succinate Er 50 Mg Tab.Er.24h PO 50 mg BID MILY Administration Protocol Olanzapine 10 mg 08/22/20 11:41 09/22/20 10:15 Olanzapine 10 Mg Vial IM 10 mg BID PRN Administration Psychosis Olanzapine 10 mg 09/11/20 14:06 09/23/20 14:50 Olanzapine Odt 10 Mg Tab.Rapdis TRANSLINGU 10 mg RQ6H PRN Administration Psychosis Quetiapine Fumarate 100 mg 08/16/20 22:10 09/20/20 00:39 Quetiapine Fumarate 100 Mg Tablet PO 100 mg BEDTIME PRN Administration Insomnia Topiramate 50 mg 08/05/20 21:00 10/29/20 20:23 Topiramate 25 Mg Tablet PO 50 mg BEDTIME MILY Administration Vitamin D 25 mcg 08/06/20 09:00 10/29/20 08:35 Cholecalciferol (Vitamin D3) 25 Mcg Tablet PO 25 mcg DAILY MILY Administration Allergies Allergies Allergy/AdvReac Type Severity Reaction Status Date / Time lithium [[place]] Allergy Severe TOXICITY Verified 07/28/20 18:08 thiothixene Allergy Severe SWELLING Verified 08/05/20 07:28 barium sulfate Allergy Intermediate NAUSEA & Verified 08/05/20 07:28 [BARIUM SULFATE] VOMITING haloperidol Allergy Intermediate MUSCLE Verified 07/28/20 18:08 TENSION IN LEGS benztropine Allergy Unknown benztropine Verified 08/05/20 07:28 mesylate- unknown diphenhydramine Allergy Unknown urinary Verified 08/05/20 07:28 [From Benadryl] retention fluphenazine Allergy Unknown UNKNOWN Verified 08/05/20 07:28 gabapentin [From NEURONTIN] Allergy Unknown UNKNOWN Verified 07/28/20 18:08 prolixen Allergy Unknown Unknown Uncoded 07/28/20 16:56 Assessment & Plan Assessment & Plan (1) Schizoaffective disorder: Qualifiers: Schizoaffective disorder type: bipolar Qualified Code(s): F25.0 - Mily izoaffective disorder, bipolar type Status: Acute Code(s): F25.9 - Schizoaffective disorder, unspecified Assessment and Plan: Assessment & Plan (1) Hypertension: (2) Abnormal EKG: (3) Schizoaffective disorder: Assessment and Plan: cardiology consult read and appreciated EKG reviewed by Dr. Arriaza did not recommend change in antipsychotics at this time. Clozapine has been lowered to 250 mg Latuda 20 mg metoprolol 50 b.i.d. history of hypertensive cardiomyopathy do not recommend acute changes at this time referral to [facility] setting continue above plan Greater than 50% of the session was spent on counseling and/or coordination of care Greater than 50% of the session was spent on counseling and/or coordination of care Patient educated on: medication risk/benefits Informed Consent: further education needed Reason for contiued inpatient stay Substantial Risk for: inability to function and rapid decompensation
[2020-10-30 05:59] LABS: Glucose, Whole Blood 140 mg/dL (60-115)
[2020-10-30 06:40] VITALS: BP 109/58; PULSE 77; RESP 18; TEMP 36.7
[2020-10-30 08:10] VITALS: BP 109/66; PULSE 62
[2020-10-30] MEDS: Metoprolol Succinate ER 50 MG TAB.ER.24H PO ×2 (08:10→20:40)
[2020-10-30] MEDS: Lurasidone HCl 20 MG TABLET PO (08:10)
[2020-10-30] MEDS: Cholecalciferol (Vitamin D3) 25 MCG TABLET PO (08:11)
[2020-10-30] MEDS: Aspirin 81 MG TAB.CHEW PO (08:11)
[2020-10-30] MEDS: Docusate Sodium 100 MG CAPSULE PO ×2 (08:11→20:41)
--- NOTE | 2020-10-30 14:14 | P.PNPSI_ITS ---
Subjective Subjective Date of Service: 10/30/20 Reason For Visit: Psychosis Interim History: Nursing notes reviewed. Pt contiues to sleep through the night. He is increasingly more organized and much less agitated. Pt reports feeling more rested. He denies symptoms of depression. She denies SI/HI. He is social with select peers, visible in the unit. He is taking depakote more consistently, with much encouragement from RN. No behavioral concerns. Review of Systems Review of Systems Yes all other systems are reviewed and are negative, Unobtainable due to mental condition and Unobtainable due to mental status Reports other (reports denture broke) Cardiovascular: Reports other (arrythmia) Psychiatric: Reports depression, Reports hopelessness, Reports irritability, Reports anhedonia, Reports mood swings, Reports paranoia and Reports hallucinations Mental Status Exam Mental Status Exam Patient Appearance: Appropriate (hygiene improving) Patient Orientation: Person, Place and Situation Level of Consciousness: Awake Patient Behavior: Appropriate Mood Description: Calm Affect Description: Calm Patient Cognition Impaired: Yes Ability to Follow Directions: Fair Speech Pattern: Clear, Spontaneous Speech and Soft-Spoken Memory Description: Episodic Impaired Hallucinations: Auditory Delusions: Not Present Thought Content: positive for Poverty of Content Judgement and Insight: impaired x 2. Diagnostics Vital Signs (24Hr): Vital Signs - 24 hr 10/29/20 18:00 10/29/20 20:24 10/30/20 06:40 Temperature 98.3 F 98.1 F Pulse Rate 77 77 77 Respiratory Rate 18 Blood Pressure 139/74 139/74 109/58 L 10/30/20 08:10 Temperature Pulse Rate 62 Respiratory Rate Blood Pressure 109/66 Body Mass Index 35.9 Labs Results: 10/26/20 07:57 10/26/20 07:57 Labs: Laboratory Results - last 48 hr 10/28/20 10/29/20 10/29/20 20:30 04:52 16:50 POC Glucose 207 H 125 H 170 H 10/30/20 05:39 POC Glucose 140 H Medications Medications Current Medications Generic Name Dose Route Start Last Admin Trade Name Freq PRN Reason Stop Dose Admin Acetaminophen 650 mg 08/26/20 10:22 Acetaminophen 325 Mg Tablet PO Q6H PRN Pain, Mild (Pain Scale 1-3) Albuterol Sulfate 2 puff 08/05/20 19:32 10/28/20 20:24 Albuterol Sulfate 90 Mcg 8 Gm Inhaler INHALE 2 puff DAILY PRN Administration asthma Aspirin 81 mg 08/06/20 09:00 10/30/20 08:11 Aspirin 81 Mg Tab.Chew PO 81 mg DAILY OZZY Administration Atorvastatin Calcium 20 mg 08/05/20 21:00 10/29/20 20:24 Atorvastatin Calcium 20 Mg Tablet PO 20 mg BEDTIME OZZY Administration Clozapine 200 mg 10/19/20 19:00 10/29/20 20:24 Clozapine 100 Mg Tablet PO 200 mg DAILY@190 OZZY Administration Clozapine 50 mg 10/27/20 19:00 10/29/20 20:23 Clozapine 25 Mg Tablet PO 50 mg DAILY@190 OZZY Administration Divalproex Sodium 500 mg 10/29/20 19:00 10/29/20 20:29 Divalproex Sodium 500 Mg Tablet.Dr PO Not Given DAILY@1899 [facility] Docusate Sodium 100 mg 08/05/20 21:00 10/30/20 08:11 Docusate Sodium 100 Mg Capsule PO 100 mg BID@0830,2100 OZZY Administration Lurasidone HCl 20 mg 10/19/20 09:00 10/30/20 08:10 Lurasidone Hcl 20 Mg Tablet PO 20 mg DAILY OZZY Administration Metoprolol Succinate 50 mg 10/29/20 09:00 10/30/20 08:10 Metoprolol Succinate Er 50 Mg Tab.Er.24h PO 50 mg BID OZZY Administration Protocol Olanzapine 10 mg 08/22/20 11:41 09/22/20 10:15 Olanzapine 10 Mg Vial IM 10 mg BID PRN Administration Psychosis Olanzapine 10 mg 09/11/20 14:06 09/23/20 14:50 Olanzapine Odt 10 Mg Tab.Rapdis TRANSLINGU 10 mg RQ6H PRN Administration Psychosis Quetiapine Fumarate 100 mg 08/16/20 22:10 09/20/20 00:39 Quetiapine Fumarate 100 Mg Tablet PO 100 mg BEDTIME PRN Administration Insomnia Topiramate 50 mg 08/05/20 21:00 10/29/20 20:23 Topiramate 25 Mg Tablet PO 50 mg BEDTIME OZZY Administration Vitamin D 25 mcg 08/06/20 09:00 10/30/20 08:11 Cholecalciferol (Vitamin D3) 25 Mcg Tablet PO 25 mcg DAILY OZZY Administration Allergies Allergies Allergy/AdvReac Type Severity Reaction Status Date / Time lithium [[place]] Allergy Severe TOXICITY Verified 07/28/20 18:08 thiothixene Allergy Severe SWELLING Verified 08/05/20 07:28 barium sulfate Allergy Intermediate NAUSEA & Verified 08/05/20 07:28 [BARIUM SULFATE] VOMITING haloperidol Allergy Intermediate MUSCLE Verified 07/28/20 18:08 TENSION IN LEGS benztropine Allergy Unknown benztropine Verified 08/05/20 07:28 mesylate- unknown diphenhydramine Allergy Unknown urinary Verified 08/05/20 07:28 [From Benadryl] retention fluphenazine Allergy Unknown UNKNOWN Verified 08/05/20 07:28 gabapentin [From NEURONTIN] Allergy Unknown UNKNOWN Verified 07/28/20 18:08 prolixen Allergy Unknown Unknown Uncoded 07/28/20 16:56 Assessment & Plan Assessment & Plan (1) Schizoaffective disorder: Qualifiers: Schizoaffective disorder type: bipolar Qualified Code(s): F25.0 - Schizoaffective disorder, bipolar type Status: Acute Code(s): F25.9 - Schizoaffective disorder, unspecified Assessment and Plan: Assessment & Plan (1) Hypertension: (2) Abnormal EKG: (3) Schizoaffective disorder: Assessment and Plan: cardiology consult read and appreciated EKG reviewed by Dr. Arriaza did not recommend change in antipsychotics at this time. Clozapine has been lowered to 250 mg Latuda 20 mg metoprolol 50 b.i.d. history of hypertensive cardiomyopathy do not recommend acute changes at this time referral to residential setting continue above plan Greater than 50% of the session was spent on counseling and/or coordination of care Greater than 50% of the session was spent on counseling and/or coordination of care
[2020-10-30 17:30] LABS: Glucose, Whole Blood 135 mg/dL (60-115)
[2020-10-30 18:00] VITALS: BP 109/73; PULSE 75; TEMP 36.7
[2020-10-30 20:40] VITALS: BP 109/73; PULSE 75
[2020-10-30] MEDS: cloZAPine 100 MG TABLET 200 MG PO (20:40)
[2020-10-30] MEDS: cloZAPine 25 MG TABLET 50 MG PO (20:40)
[2020-10-30] MEDS: Atorvastatin Calcium 20 MG TABLET PO (20:40)
[2020-10-30] MEDS: Topiramate 25 MG TABLET 50 MG PO (20:40)
[2020-10-31 04:25] VITALS: BP 98/70; PULSE 88; RESP 18; TEMP 36.2
[2020-10-31 04:27] LABS: Glucose, Whole Blood 156 mg/dL (60-115)
[2020-10-31 08:12] VITALS: BP 98/70; PULSE 88
[2020-10-31] MEDS: Cholecalciferol (Vitamin D3) 25 MCG TABLET PO (08:12)
[2020-10-31] MEDS: Metoprolol Succinate ER 50 MG TAB.ER.24H PO ×2 (08:12→20:31)
[2020-10-31] MEDS: Docusate Sodium 100 MG CAPSULE PO ×2 (08:12→20:30)
[2020-10-31] MEDS: Aspirin 81 MG TAB.CHEW PO (08:13)
[2020-10-31] MEDS: Lurasidone HCl 20 MG TABLET PO (08:13)
--- NOTE | 2020-10-31 13:39 | P.PNPSI_ITS ---
Subjective Subjective Date of Service: 10/31/20 Reason For Visit: Psychosis Interim History: Nursing notes reviewed. Pt contiues to sleep through the night. He is increasingly more organized and much less agitated. Pt reports feeling more okay. He denies symptoms of depression. She denies SI/HI. He is social with select peers, visible in the unit. He declined depakote today. No behavio ral concerns. Review of Systems Review of Systems Yes all other systems are reviewed and are negative, Unobtainable due to mental condition and Unobtainable due to mental status Reports other (reports denture broke) Cardiovascular: Reports other (arrythmia) Psychiatric: Reports depression, Reports hopelessness, Reports irritability, Reports anhedonia, Reports mood swings, Reports paranoia and Reports hallucinations Mental Status Exam Mental Status Exam Patient Appearance: Appropriate (hygiene improving) Patient Orientation: Person, Place and Situation Level of Consciousness: Awake Patient Behavior: Appropriate Mood Description: Calm Affect Description: Calm Patient Cognition Impaired: Yes Ability to Follow Directions: Fair Speech Pattern: Clear, Spontaneous Speech and Soft-Spoken Memory Description: Episodic Impaired Diagnostics Vital Signs (24Hr): Vital Signs - 24 hr 10/30/20 18:00 10/30/20 20:40 10/31/20 04:25 Temperature 98.0 F 97.1 F Pulse Rate 75 75 88 Respiratory Rate 18 Blood Pressure 109/73 109/73 98/70 10/31/20 08:12 Temperature Pulse Rate 88 Respiratory Rate Blood Pressure 98/70 Body Mass Index 35.9 Labs Results: 10/26/20 07:57 10/26/20 07:57 Labs: Laboratory Results - last 48 hr 10/29/20 10/30/20 10/30/20 16:50 05:39 17:25 POC Glucose 170 H 140 H 135 H 10/31/20 04:19 POC Glucose 156 H Medications Medications Current Medications Generic Name Dose Route Start Last Admin Trade Name Freq PRN Reason Stop Dose Admin Acetaminophen 650 mg 08/26/20 10:22 Acetaminophen 325 Mg Tablet PO Q6H PRN Pain, Mild (Pain Scale 1-3) Albuterol Sulfate 2 puff 08/05/20 19:32 10/28/20 20:24 Albuterol Sulfate 90 Mcg 8 Gm Inhaler INHALE 2 puff DAILY PRN Administration asthma Aspirin 81 mg 08/06/20 09:00 10/31/20 08:13 Aspirin 81 Mg Tab.Chew PO 81 mg DAILY OZZY Administration Atorvastatin Calcium 20 mg 08/05/20 21:00 10/30/20 20:40 Atorvastatin Calcium 20 Mg Tablet PO 20 mg BEDTIME OZZY Administration Clozapine 200 mg 10/19/20 19:00 10/30/20 20:40 Clozapine 100 Mg Tablet PO 200 mg DAILY@1900 OZZY Administration Clozapine 50 mg 10/27/20 19:00 10/30/20 20:40 Clozapine 25 Mg Tablet PO 50 mg DAILY@1900 OZZY Administration Divalproex Sodium 500 mg 10/29/20 19:00 10/30/20 20:41 Divalproex Sodium 500 Mg Tablet.Dr PO Not Given DAILY@1900 [facility] Docusate Sodium 100 mg 08/05/20 21:00 10/31/20 08:12 Docusate Sodium 100 Mg Capsule PO 100 mg BID@0830,2100 OZZY Administration Lurasidone HCl 20 mg 10/19/20 09:00 10/31/20 08:13 Lurasidone Hcl 20 Mg Tablet PO 20 mg DAILY OZZY Administration Metoprolol Succinate 50 mg 10/29/20 09:00 10/31/20 08:12 Metoprolol Succinate Er 50 Mg Tab.Er.24h PO 50 mg BID OZZY Administration Protocol Olanzapine 10 mg 08/22/20 11:41 09/22/20 10:15 Olanzapine 10 Mg Vial IM 10 mg BID PRN Administration Psychosis Olanzapine 10 mg 09/11/20 14:06 09/23/20 14:50 Olanzapine Odt 10 Mg Tab.Rapdis TRANSLINGU 10 mg RQ6H PRN Administration Psychosis Quetiapine Fumarate 100 mg 08/16/20 22:10 09/20/20 00:39 Quetiapine Fumarate 100 Mg Tablet PO 100 mg BEDTIME PRN Administration Insomnia Topiramate 50 mg 08/05/20 21:00 10/30/20 20:40 Topiramate 25 Mg Tablet PO 50 mg BEDTIME OZZY Administration Vitamin D 25 mcg 08/06/20 09:00 10/31/20 08:12 Cholecalciferol (Vitamin D3) 25 Mcg Tablet PO 25 mcg DAILY OZZY Administration Allergies Allergies Allergy/AdvReac Type Severity Reaction Status Date / Time lithium [[place]] Allergy Severe TOXICITY Verified 07/28/20 18:08 thiothixene Allergy Severe SWELLING Verified 08/05/20 07:28 barium sulfate Allergy Intermediate NAUSEA & Verified 08/05/20 07:28 [BARIUM SULFATE] VOMITING haloperidol Allergy Intermediate MUSCLE Verified 07/28/20 18:08 TENSION IN LEGS benztropine Allergy Unknown benztropine Verified 08/05/20 07:28 mesylate- unknown diphenhydramine Allergy Unknown urinary Verified 08/05/20 07:28 [From Benadryl] retention fluphenazine Allergy Unknown UNKNOWN Verified 08/05/20 07:28 gabapentin [From NEURONTIN] Allergy Unknown UNKNOWN Verified 07/28/20 18:08 prolixen Allergy Unknown Unknown Uncoded 07/28/20 16:56 Assessment & Plan Assessment & Plan (1) Schizoaffective disorder: Qualifiers: Schizoaffective disorder type: bipolar Qualified Code(s): F25.0 - Schizoaffective disorder, bipolar type Status: Acute Code(s): F25.9 - Schizoaffective disorder, unspecified Assessment and Plan: Assessment & Plan (1) Hypertension: (2) Abnormal EKG: (3) Schizoaffective disorder: Assessment and Plan: cardiology consult read and appreciated EKG reviewed by Dr. Arriaza did not recommend change in antipsychotics at this time. Clozapine has been lowered to 250 mg Latuda 20 mg metoprolol 50 b.i.d. history of hypertensive cardiomyopathy do not recommend acute changes at this time referral to long-term setting continue above plan Greater than 50% of the session was spent on counseling and/or coordination of care Greater than 50% of the session was spent on counseling and/or coordination of care
[2020-10-31 17:34] LABS: Glucose, Whole Blood 207 mg/dL (60-115)
[2020-10-31 18:00] VITALS: BP 152/86; PULSE 77; TEMP 36.1
[2020-10-31] MEDS: Topiramate 25 MG TABLET 50 MG PO (20:29)
[2020-10-31 20:31] VITALS: BP 152/89; PULSE 77
[2020-10-31] MEDS: cloZAPine 100 MG TABLET 200 MG PO (20:31)
[2020-10-31] MEDS: cloZAPine 25 MG TABLET 50 MG PO (20:31)
[2020-10-31] MEDS: Atorvastatin Calcium 20 MG TABLET PO (20:31)
[2020-11-01 06:05] VITALS: BP 131/77; PULSE 77; RESP 18; TEMP 36.2; O2SAT 95
[2020-11-01 06:18] LABS: Glucose, Whole Blood 124 mg/dL (60-115)
[2020-11-01] MEDS: Lurasidone HCl 20 MG TABLET PO (08:30)
[2020-11-01 08:31] VITALS: BP 131/77; PULSE 77
[2020-11-01] MEDS: Docusate Sodium 100 MG CAPSULE PO ×2 (08:31→21:55)
[2020-11-01] MEDS: Metoprolol Succinate ER 50 MG TAB.ER.24H PO ×2 (08:31→21:56)
[2020-11-01] MEDS: Aspirin 81 MG TAB.CHEW PO (08:31)
[2020-11-01] MEDS: Cholecalciferol (Vitamin D3) 25 MCG TABLET PO (08:31)
[2020-11-01 18:00] VITALS: BP 115/71; PULSE 87; TEMP 36.5
[2020-11-01] MEDS: cloZAPine 25 MG TABLET 50 MG PO (18:47)
[2020-11-01] MEDS: cloZAPine 100 MG TABLET 200 MG PO (18:47)
--- NOTE | 2020-11-01 19:50 | HO.PSYCHPN ---
Subjective Subjective Date of Service: 11/01/20 Reason For Visit: Psychosis Subjective Notes: Mose[place] Order Interim History: section 8 moseley case reviewed staff tx team notes reviewed pt flat dysphoric however not aggressive able to fx around other people less disorganized mood more stable less labile has been refusing depakote Medication Compliance: Intermittent Side effects from medications: Yes Attending Groups: Intermittent Review of Systems Review of Systems disheveled no clear distress no cp Yes Unobtainable due to mental status Mental Status Exam Mental Status Exam Patient Appearance: Disheveled and Unkempt Patient Orientation: Person, Place and Situation Level of Consciousness: Awake and Lethargic Patient Behavior: Fatigued Mood Description: Depressed and Flat Affect Description: Withdrawn Speech Pattern: Impoverished and Monotone Thought Process: Slowed Thinking Thought Content: positive for [place] and positive for Poverty of Content Abnormal Motor Activity Signs and Symptoms: Psychomotor Retardation Judgement: Fair Diagnostics Vital Signs (24Hr): Vital Signs - 24 hr 10/31/20 20:31 11/01/20 06:05 11/01/20 08:31 Temperature 97.2 F Pulse Rate 77 77 77 Respiratory Rate 18 Blood Pressure 152/89 H 131/77 131/77 Pulse Oximetry 95 Body Mass Index 35.9 Labs Results: 10/26/20 07:57 10/26/20 07:57 Labs: Laboratory Results - last 48 hr 10/31/20 10/31/20 11/01/20 04:19 17:30 06:13 POC Glucose 156 H 207 H 124 H Medications Medications Current Medications Generic Name Dose Route Start Last Admin Trade Name Freq PRN Reason Stop Dose Admin Acetaminophen 650 mg 08/26/20 10:22 Acetaminophen 325 Mg Tablet PO Q6H PRN Pain, Mild (Pain Scale 1-3) Albuterol Sulfate 2 puff 08/05/20 19:32 10/28/20 20:24 Albuterol Sulfate 90 Mcg 8 Gm Inhaler INHALE 2 puff DAILY PRN Administration asthma Aspirin 81 mg 08/06/20 09:00 11/01/20 08:31 Aspirin 81 Mg Tab.Chew PO 81 mg DAILY OZZY Administration Atorvastatin Calcium 20 mg 08/05/20 21:00 10/31/20 20:31 Atorvastatin Calcium 20 Mg Tablet PO 20 mg BEDTIME OZZY Administration Clozapine 200 mg 10/19/20 19:00 11/01/20 18:47 Clozapine 100 Mg Tablet PO 200 mg DAILY@1900 OZZY Administration Clozapine 50 mg 10/27/20 19:00 11/01/20 18:47 Clozapine 25 Mg Tablet PO 50 mg DAILY@1900 OZZY Administration Docusate Sodium 100 mg 08/05/20 21:00 11/01/20 08:31 Docusate Sodium 100 Mg Capsule PO 100 mg BID@0830,2100 OZZY Administration Lurasidone HCl 20 mg 10/19/20 09:00 11/01/20 08:30 Lurasidone Hcl 20 Mg Tablet PO 20 mg DAILY OZZY Administration Metoprolol Succinate 50 mg 10/29/20 09:00 11/01/20 08:31 Metoprolol Succinate Er 50 Mg Tab.Er.24h PO 50 mg BID OZZY Administration Protocol Olanzapine 10 mg 08/22/20 11:41 09/22/20 10:15 Olanzapine 10 Mg Vial IM 10 mg BID PRN Administration Psychosis Olanzapine 10 mg 09/11/20 14:06 09/23/20 14:50 Olanzapine Odt 10 Mg Tab.Rapdis TRANSLINGU 10 mg RQ6H PRN Administration Psychosis Quetiapine Fumarate 100 mg 08/16/20 22:10 09/20/20 00:39 Quetiapine Fumarate 100 Mg Tablet PO 100 mg BEDTIME PRN Administration Insomnia Topiramate 50 mg 08/05/20 21:00 10/31/20 20:29 Topiramate 25 Mg Tablet PO 50 mg BEDTIME OZZY Administration Vitamin D 25 mcg 08/06/20 09:00 11/01/20 08:31 Cholecalciferol (Vitamin D3) 25 Mcg Tablet PO 25 mcg DAILY OZZY Administration Allergies Allergies Allergy/AdvReac Type Severity Reaction Status Date / Time lithium [[place]] Allergy Severe TOXICITY Verified 07/28/20 18:08 thiothixene Allergy Severe SWELLING Verified 08/05/20 07:28 barium sulfate Allergy Intermediate NAUSEA & Verified 08/05/20 07:28 [BARIUM SULFATE] VOMITING haloperidol Allergy Intermediate MUSCLE Verified 07/28/20 18:08 TENSION IN LEGS benztropine Allergy Unknown benztropine Verified 08/05/20 07:28 mesylate- unknown diphenhydramine Allergy Unknown urinary Verified 08/05/20 07:28 [From Benadryl] retention fluphenazine Allergy Unknown UNKNOWN Verified 08/05/20 07:28 gabapentin [From NEURONTIN] Allergy Unknown UNKNOWN Verified 07/28/20 18:08 prolixen Allergy Unknown Unknown Uncoded 07/28/20 16:56 Assessment & Plan Assessment & Plan (1) Abnormal EKG: Status: Acute Code(s): R94.31 - Abnormal electrocardiogram [ECG] [EKG] Assessment and Plan: monitor ekg no change recommended cardiology (2) Schizoaffective disorder: Qualifiers: Schizoaffective disorder type: bipolar Qualified Code(s): F25.0 - Schizoaffective disorder, bipolar type Status: Acute Code(s): F25.9 - Schizoaffective disorder, unspecified Assessment and Plan: Patient more stable not aggressive has cycled more into depression improving with Latuda but would maintain 20 mg. this is secondary to EKG changes patient has been most stable on the combination of clozapine and Latuda. He is not combative aggressive and no longer has pressured floridly psychotic irritable in physically aggressive. Had been on waiting list for longer-term hospitalization will try step down to penitentiary setting Greater than 50% of the session was spent on counseling and/or coordination of care
[2020-11-01] MEDS: Atorvastatin Calcium 20 MG TABLET PO (21:55)
[2020-11-01] MEDS: Topiramate 25 MG TABLET 50 MG PO (21:55)
[2020-11-01 21:56] VITALS: BP 115/71; PULSE 87
[2020-11-01 22:20] LABS: Glucose, Whole Blood 188 mg/dL (60-115)
[2020-11-02 06:05] VITALS: BP 129/69; PULSE 75; RESP 18; TEMP 36.2; O2SAT 95
[2020-11-02 06:19] LABS: Glucose, Whole Blood 143 mg/dL (60-115)
--- NOTE | 2020-11-02 08:00 | ECG_ITS ---
Test Reason : CHECK QTC Blood Pressure : / mmHG Vent. Rate : 085 BPM Atrial Rate : 085 BPM P-R Int : 172 ms QRS Dur : 116 ms QT Int : 408 ms P-R-T Axes : 031 037 197 degrees QTc Int : 485 ms Normal sinus rhythm Possible Left atrial enlargement Left ventricular hypertrophy with QRS widening and repolarization abnormality Prolonged QT Abnormal ECG When compared with ECG of 28-OCT-2020 13:55, No significant change was found Referred By: Rocael Pacheco Electronically Signed By:Javier Bah
[2020-11-02] MEDS: Docusate Sodium 100 MG CAPSULE PO ×2 (08:54→20:54)
[2020-11-02] MEDS: Aspirin 81 MG TAB.CHEW PO (08:54)
[2020-11-02 08:55] VITALS: BP 129/69; PULSE 75
[2020-11-02] MEDS: Cholecalciferol (Vitamin D3) 25 MCG TABLET PO (08:55)
[2020-11-02] MEDS: Metoprolol Succinate ER 50 MG TAB.ER.24H PO ×2 (08:55→20:54)
[2020-11-02] MEDS: Lurasidone HCl 20 MG TABLET PO (08:55)
[2020-11-02 16:33] VITALS: BP 142/90; PULSE 83; TEMP 36.1
[2020-11-02] MEDS: cloZAPine 100 MG TABLET 200 MG PO (18:50)
[2020-11-02] MEDS: cloZAPine 25 MG TABLET 50 MG PO (18:50)
[2020-11-02 20:54] VITALS: BP 149/83; PULSE 84
[2020-11-02] MEDS: Topiramate 25 MG TABLET 50 MG PO (20:54)
[2020-11-02] MEDS: Atorvastatin Calcium 20 MG TABLET PO (20:55)
--- NOTE | 2020-11-02 21:33 | HO.PSYCHPN ---
Subjective Subjective Date of Service: 11/02/20 Reason For Visit: Psychosis Subjective Notes: [place] Order Interim History: pt flat but generally improvrd fx Medication Compliance: Yes Mental Status Exam Mental Status Exam Patient Appearance: Disheveled and Unkempt Patient Orientation: Person, Place and Situation Level of Consciousness: Awake and Lethargic Patient Behavior: Fatigued Mood Description: Depressed and Flat Affect Description: Withdrawn Speech Pattern: Impoverished and Monotone Thought Process: Slowed Thinking Thought Content: positive for [place] and positive for Poverty of Content Abnormal Motor Activity Signs and Symptoms: Psychomotor Retardation Judgement: Fair Diagnostics Vital Signs (24Hr): Vital Signs - 24 hr 11/01/20 21:56 11/02/20 06:05 11/02/20 08:55 Temperature 97.2 F Pulse Rate 87 75 75 Respiratory Rate 18 Blood Pressure 115/71 129/69 129/69 Pulse Oximetry 95 11/02/20 16:33 11/02/20 20:54 Temperature 97.0 F Pulse Rate 83 84 Respiratory Rate Blood Pressure 142/90 H 149/83 H Pulse Oximetry Body Mass Index 35.9 Labs Results: 10/26/20 07:57 10/26/20 07:57 Labs: Laboratory Results - last 48 hr 11/01/20 11/01/20 11/02/20 06:13 21:50 06:12 POC Glucose 124 H 188 H 143 H Medications Medications Current Medications Generic Name Dose Route Start Last Admin Trade Name Freq PRN Reason Stop Dose Admin Acetaminophen 650 mg 08/26/20 10:22 Acetaminophen 325 Mg Tablet PO Q6H PRN Pain, Mild (Pain Scale 1-3) Albuterol Sulfate 2 puff 08/05/20 19:32 10/28/20 20:24 Albuterol Sulfate 90 Mcg 8 Gm Inhaler INHALE 2 puff DAILY PRN Administration asthma Aspirin 81 mg 08/06/20 09:00 11/02/20 08:54 Aspirin 81 Mg Tab.Chew PO 81 mg DAILY OZZY Administration Atorvastatin Calcium 20 mg 08/05/20 21:00 11/02/20 20:55 Atorvastatin Calcium 20 Mg Tablet PO 20 mg BEDTIME OZZY Administration Clozapine 200 mg 10/19/20 19:00 11/02/20 18:50 Clozapine 100 Mg Tablet PO 200 mg DAILY@1900 OZZY Administration Clozapine 50 mg 10/27/20 19:00 01/26/21 18:50 Clozapine 25 Mg Tablet PO 50 mg DAILY@1900 OZZY Administration Docusate Sodium 100 mg 08/05/20 21:00 11/02/20 20:54 Docusate Sodium 100 Mg Capsule PO 100 mg BID@0830,2100 OZZY Administration Lurasidone HCl 20 mg 10/19/20 09:00 11/02/20 08:55 Lurasidone Hcl 20 Mg Tablet PO 20 mg DAILY OZZY Administration Metoprolol Succinate 50 mg 10/29/20 09:00 11/02/20 20:54 Metoprolol Succinate Er 50 Mg Tab.Er.24h PO 50 mg BID OZZY Administration Protocol Olanzapine 10 mg 08/22/20 11:41 09/22/20 10:15 Olanzapine 10 Mg Vial IM 10 mg BID PRN Administration Psychosis Olanzapine 10 mg 09/11/20 14:06 09/23/20 14:50 Olanzapine Odt 10 Mg Tab.Rapdis TRANSLINGU 10 mg RQ6H PRN Administration Psychosis Quetiapine Fumarate 100 mg 08/16/20 22:10 09/20/20 00:39 Quetiapine Fumarate 100 Mg Tablet PO 100 mg BEDTIME PRN Administration Insomnia Topiramate 50 mg 08/05/20 21:00 11/02/20 20:54 Topiramate 25 Mg Tablet PO 50 mg BEDTIME OZZY Administration Vitamin D 25 mcg 08/06/20 09:00 11/02/20 08:55 Cholecalciferol (Vitamin D3) 25 Mcg Tablet PO 25 mcg DAILY OZZY Administration Allergies Allergies Allergy/AdvReac Type Severity Reaction Status Date / Time lithium [[place]] Allergy Severe TOXICITY Verified 07/28/20 18:08 thiothixene Allergy Severe SWELLING Verified 08/05/20 07:28 barium sulfate Allergy Intermediate NAUSEA & Verified 08/05/20 07:28 [BARIUM SULFATE] VOMITING haloperidol Allergy Intermediate MUSCLE Verified 07/28/20 18:08 TENSION IN LEGS benztropine Allergy Unknown benztropine Verified 08/05/20 07:28 mesylate- unknown diphenhydramine Allergy Unknown urinary Verified 08/05/20 07:28 [From Benadryl] retention fluphenazine Allergy Unknown UNKNOWN Verified 08/05/20 07:28 gabapentin [From NEURONTIN] Allergy Unknown UNKNOWN Verified 07/28/20 18:08 prolixen Allergy Unknown Unknown Uncoded 07/28/20 16:56 Assessment & Plan Assessment & Plan (1) Abnormal EKG: Status: Acute Code(s): R94.31 - Abnormal electrocardiogram [ECG] [EKG] Assessment and Plan: QTC has improved (2) Schizoaffective disorder: Qualifiers: Schizoaffective disorder type: bipolar Qualified Code(s): F25.0 - Schizoaffective disorder, bipolar type Status: Acute Code(s): F25.9 - Schizoaffective disorder, unspecified Assessment and Plan: continue clozapine Depakote discontinued continue Latuda referral to skilled nursing Greater than 50% of the session was spent on counseling and/or coordination of care Patient educated on: medication risk/benefits Reason for contiued inpatient stay Substantial Risk for: rapid decompensation
[2020-11-03 04:55] VITALS: BP 131/70; PULSE 85; RESP 20; TEMP 36.1; O2SAT 96
[2020-11-03 04:56] LABS: Glucose, Whole Blood 159 mg/dL (60-115)
[2020-11-03 08:32] VITALS: BP 131/70; PULSE 85
[2020-11-03] MEDS: Metoprolol Succinate ER 50 MG TAB.ER.24H PO ×2 (08:32→20:49)
[2020-11-03] MEDS: Cholecalciferol (Vitamin D3) 25 MCG TABLET PO (08:32)
[2020-11-03] MEDS: Lurasidone HCl 20 MG TABLET PO (08:32)
[2020-11-03] MEDS: Aspirin 81 MG TAB.CHEW PO (08:32)
[2020-11-03] MEDS: Docusate Sodium 100 MG CAPSULE PO ×2 (08:33→20:49)
--- NOTE | 2020-11-03 09:13 | P.PNPSI_ITS ---
Subjective Subjective Date of Service: 11/03/20 Reason For Visit: Psychosis Subjective Notes: [place] Order Interim History: Patient has stabilized not aggressive cooperative seems stable for discharge tomorrow Medication Compliance: Yes Side effects from medications: Yes Mental Status Exam Mental Status Exam Patient Appearance: Disheveled and Unkempt Patient Orientation: Person, Place and Situation Level of Consciousness: Awake and Lethargic Patient Behavior: Fatigued and Isolative Behavior Comments: come cooperative often isolative to his room Mood Description: Depressed and Flat Affect Description: Withdrawn Speech Pattern: Impoverished and Monotone Thought Process: Slowed Thinking Thought Content: positive for [place] and positive for Poverty of Content Abnormal Motor Activity Signs and Symptoms: Psychomotor Retardation Judgement: Fair Diagnostics Vital Signs (24Hr): Vital Signs - 24 hr 11/02/20 16:33 11/02/20 20:54 11/03/20 04:55 Temperature 97.0 F 96.9 F Pulse Rate 83 84 85 Respiratory Rate 20 Blood Pressure 142/90 H 149/83 H 131/70 Pulse Oximetry 96 11/03/20 08:32 Temperature Pulse Rate 85 Respiratory Rate Blood Pressure 131/70 Pulse Oximetry Body Mass Index 35.9 Labs Results: 10/26/20 07:57 10/26/20 07:57 Labs: Laboratory Results - last 48 hr 11/01/20 11/02/20 11/03/20 21:50 06:12 04:52 POC Glucose 188 H 143 H 159 H Medications Medications Current Medications Generic Name Dose Route Start Last Admin Trade Name Freq PRN Reason Stop Dose Admin Acetaminophen 650 mg 08/26/20 10:22 Acetaminophen 325 Mg Tablet PO Q6H PRN Pain, Mild (Pain Scale 1-3) Albuterol Sulfate 2 puff 08/05/20 19:32 10/28/20 20:24 Albuterol Sulfate 90 Mcg 8 Gm Inhaler INHALE 2 puff DAILY PRN Administration asthma Aspirin 81 mg 08/06/20 09:00 11/03/20 08:32 Aspirin 81 Mg Tab.Chew PO 81 mg DAILY OZZY Administration Atorvastatin Calcium 20 mg 08/05/20 21:00 11/02/20 20:55 Atorvastatin Calcium 20 Mg Tablet PO 20 mg BEDTIME OZZY Administration Clozapine 200 mg 10/19/20 19:00 11/02/20 18:50 Clozapine 100 Mg Tablet PO 200 mg DAILY@1900 OZZY Administration Clozapine 50 mg 10/27/20 19:00 11/02/20 18:50 Clozapine 25 Mg Tablet PO 50 mg DAILY@1900 OZZY Administration Docusate Sodium 100 mg 08/05/20 21:00 11/03/20 08:33 Docusate Sodium 100 Mg Capsule PO 100 mg BID@0830,2100 OZZY Administration Lurasidone HCl 20 mg 10/19/20 09:00 11/03/20 08:32 Lurasidone Hcl 20 Mg Tablet PO 20 mg DAILY OZZY Administration Metoprolol Succinate 50 mg 10/29/20 09:00 11/03/20 08:32 Metoprolol Succinate Er 50 Mg Tab.Er.24h PO 50 mg BID OZZY Administration Protocol Olanzapine 10 mg 08/22/20 11:41 09/22/20 10:15 Olanzapine 10 Mg Vial IM 10 mg BID PRN Administration Psychosis Olanzapine 10 mg 09/11/20 14:06 09/23/20 14:50 Olanzapine Odt 10 Mg Tab.Rapdis TRANSLINGU 10 mg RQ6H PRN Administration Psychosis Quetiapine Fumarate 100 mg 08/16/20 22:10 09/20/20 00:39 Quetiapine Fumarate 100 Mg Tablet PO 100 mg BEDTIME PRN Administration Insomnia Topiramate 50 mg 08/05/20 21:00 11/02/20 20:54 Topiramate 25 Mg Tablet PO 50 mg BEDTIME OZZY Administration Vitamin D 25 mcg 08/06/20 09:00 11/03/20 08:32 Cholecalciferol (Vitamin D3) 25 Mcg Tablet PO 25 mcg DAILY OZZY Administration Allergies Allergies Allergy/AdvReac Type Severity Reaction Status Date / Time lithium [[place]] Allergy Severe TOXICITY Verified 07/28/20 18:08 thiothixene Allergy Severe SWELLING Verified 08/05/20 07:28 barium sulfate Allergy Intermediate NAUSEA & Verified 08/05/20 07:28 [BARIUM SULFATE] VOMITING haloperidol Allergy Intermediate MUSCLE Verified 07/28/20 18:08 TENSION IN LEGS benztropine Allergy Unknown benztropine Verified 08/05/20 07:28 mesylate- unknown diphenhydramine Allergy Unknown urinary Verified 08/05/20 07:28 [From Benadryl] retention fluphenazine Allergy Unknown UNKNOWN Verified 08/05/20 07:28 gabapentin [From NEURONTIN] Allergy Unknown UNKNOWN Verified 07/28/20 18:08 prolixen Allergy Unknown Unknown Uncoded 07/28/20 16:56 Assessment & Plan Assessment & Plan (1) Schizoaffective disorder: Qualifiers: Schizoaffective disorder type: bipolar Qualified Code(s): F25.0 - Schizoaffective disorder, bipolar type Status: Acute Code(s): F25.9 - Schizoaffective disorder, unspecified Assessment and Plan: patient seems stable for discharge tomorrow stabilized on a combination of Latuda and clozapine Depakote discontinued (2) Cardiac arrhythmia: Qualifiers: Arrhythmia type: unspecified cardiac arrhythmia Qualified Code(s): I49.9 - Cardiac arrhythmia, unspecified Status: Acute Code(s): I49.9 - Cardiac arrhythmia, unspecified (3) Hypertension: Status: Acute Code(s): I10 - Essential (primary) hypertension Assessment and Plan: continue beta-thee Greater than 50% of the session was spent on counseling and/or coordination of care Reason for contiued inpatient stay Substantial Risk for: stable for discharge ( if remains stable discharge tomorrow) and med/psych decompensation
[2020-11-03 11:11] LABS: COVID-19 Test Negative (Negative)
[2020-11-03 18:00] VITALS: BP 125/74; PULSE 83; TEMP 36.3
[2020-11-03] MEDS: cloZAPine 25 MG TABLET 50 MG PO (18:53)
[2020-11-03] MEDS: cloZAPine 100 MG TABLET 200 MG PO (18:53)
[2020-11-03 20:49] VITALS: BP 125/74; PULSE 83
[2020-11-03] MEDS: Atorvastatin Calcium 20 MG TABLET PO (20:49)
[2020-11-03] MEDS: Topiramate 25 MG TABLET 50 MG PO (20:49)
[2020-11-03 21:02] LABS: Glucose, Whole Blood 146 mg/dL (60-115)
[2020-11-04 06:18] LABS: Glucose, Whole Blood 156 mg/dL (60-115)
[2020-11-04 06:30] VITALS: BP 115/65; PULSE 77; RESP 18; TEMP 36.5
[2020-11-04 08:04] LABS: Mean Corpuscular HGB Conc 32.4 g/dl (31.0-36.0); Monocytes Absolute Auto 0.5 X10*3/uL (0.1-1.2)
[2020-11-04 08:06] LABS: Basophils Absolute Auto 0.1 X10*3/uL (0.0-0.2); Basophils Percent Auto 0.9 % (0-2); Eosinophils Absolute Auto 0.1 X10*3/uL (0.0-0.4); Eosinophils Percent Auto 2.1 % (0-4); Hematocrit 40.8 % (42-52); Hemoglobin 13.2 g/dl (14.0-18.0); Imm Gran Abs Auto 0.03 X10*3/uL (0.00-0.03); Imm Gran Pct Auto 0.6 % (0.0-0.4); Lymphocytes Absolute Auto 1.4 X10*3/uL (1.2-4.9); Lymphocytes Percent Auto 25.4 % (20-40); Mean Corpuscular Hemoglobin 28.4 pg (27.0-33.0); Mean Corpuscular Volume 87.7 fL (80-98); Mean Platelet Volume 11.4 fL (9.4-12.4); Monocytes Percent Auto 9.8 % (2-11); Neutrophils Absolute Auto 3.3 X10*3/uL (2.0-8.3); Neutrophils Percent Auto 61.2 % (45-73); Platelet Count 114 X10*3/uL (160-400); Red Blood Count 4.65 X10*6/uL (4.60-5.80); Red Cell Distribution Width 14.5 % (11.0-16.0); White Blood Count 5.3 X10*3/uL (4.8-10.8)
[2020-11-04 08:14] LABS: MANUAL DIFF FLAG NO
[2020-11-04 08:48] LABS: Alanine Aminotransferase 27 U/L (0-40); Albumin Level 3.9 g/dL (3.5-5.0); Alkaline Phosphatase 60 U/L (39-117); Anion Gap 16 (12-20); Aspartate Amino Transferase 16 U/L (5-37); Bilirubin Total 0.3 mg/dL (0.0-1.0); Blood Urea Nitrogen 27 mg/dL (9-16); Calcium 8.7 mg/dL (8.4-10.2); Carbon Dioxide 18 mmol/L (22-29); Chloride 114 mmol/L (96-108); Cholesterol 226 mg/dL; Creatinine Clr Calc Pharmacy 98.9; Estimated Glomerular Filt Rate > 60; Glucose Fasting 151 mg/dL (60-99); HDL Cholesterol 36 mg/dL; LDL Cholesterol Calculated 112 mg/dl; Sodium 144 mmol/L (135-145); Total Protein 6.6 g/dL (6.5-8.0); Triglycerides 391 mg/dL
[2020-11-04] MEDS: Aspirin 81 MG TAB.CHEW PO (09:09)
[2020-11-04] MEDS: Cholecalciferol (Vitamin D3) 25 MCG TABLET PO (09:09)
[2020-11-04] MEDS: Metoprolol Succinate ER 50 MG TAB.ER.24H PO (09:09)
[2020-11-04] MEDS: Lurasidone HCl 20 MG TABLET PO (09:10)
--- NOTE | 2020-11-04 10:35 | P.DS_ITS ---
DS: Providers Provider Date of Service: 11/04/20 Date of admission: 08/10/20 16:33 Primary care physician: Regan Hogue MD Consults: 08/25/20 13:10 Consult to Hospitalist Routine Consulting Provider: Hospitalist Reason for consultation: SEE EKG ON ANTIPSYCHOTICS CONFUSED SEE HAND SWELLING Has provider been notified: No 10/26/20 20:07 Consult to Cardiology Routine Consulting Provider: [facility] [place] Cardiovascular Services Reason for consultation: ? pt much improved on current regimen ? recommendations see ekg DS: Diagnosis Discharge Diagnosis (1) Schizoaffective disorder: Status: Acute (2) Cardiac arrhythmia: Status: Acute (3) Hypertension: Status: Acute (4) HOCM (hypertrophic obstructive cardiomyopathy): Status: Acute (5) Coronary artery disease: Status: Acute (6) Abnormal EKG: Status: Acute (7) Non-insulin dependent diabetes mellitus: Status: Acute DS: Medications Discharge Medications Home Medications: Home Medications Medication Instructions Recorded Confirmed cholecalciferol (vitamin D3) 25 mcg PO DAILY 07/07/20 08/05/20 Previous Rx's Medication Instructions Recorded aspirin 81 mg PO DAILY 30 Days #30 tab 11/03/20 aspirin 81 mg PO DAILY 30 Days #30 tab 11/03/20 cholecalciferol (vitamin D3) 25 mcg PO DAILY 30 Days #30 tab 11/03/20 clozapine 50 mg PO DAILY@1900 30 Days #60 tab 11/03/20 clozapine 200 mg PO DAILY@1900 30 Days #60 11/03/20 tab docusate sodium 100 mg PO BID@0830,2100 30 Days 11/03/20 #60 cap lurasidone [Latuda] 20 mg PO DAILY 30 Days #30 tab 11/03/20 metoprolol succinate 50 mg PO BID 30 Days #60 tab 11/03/20 albuterol sulfate 2 puff INHALATION DAILY PRN 30 11/04/20 Days g atorvastatin 20 mg PO BEDTIME 30 Days #30 tab 11/04/20 lorazepam 1 mg PO DAILY PRN 30 Days #30 tab 11/04/20 Discharge Plan Discharge Patient Disposition: Xfer Other Referrals: Tristin Chapman Visiting RN [Other] (fax [phone] ) Dr. Cerna (psychiatrist) [Other] - 12/14/20 11:00 am (Telehealth appointment) Regan Hogue MD [Primary Care Provider] - 11/18/20 10:45 am (in office) Manuel Arriaza MD [Physician] - 11/10/20 1:15 pm (IN OFFICE) Discharge Medications: New metoprolol succinate 50 mg Tablet Extended Release 24 Hr 50 mg PO BID 30 Days Qty: 60 RF: 1 Latuda 20 mg Tablet 20 mg PO DAILY 30 Days Qty: 30 RF: 1 cholecalciferol (vitamin D3) 25 mcg (1,000 unit) Tablet 25 mcg PO DAILY 30 Days Qty: 30 RF: 0 clozapine 100 mg Tablet 200 mg PO DAILY@1900 30 Days Qty: 60 RF: 1 aspirin 81 mg Tablet,Chewable 81 mg PO DAILY 30 Days Qty: 30 RF: 0 clozapine 25 mg Tablet 50 mg PO DAILY@1900 30 Days Qty: 60 RF: 0 lorazepam 1 mg tablet 1 mg PO DAILY PRN (Reason: Agitation) 30 Days Qty: 30 RF: 1 metformin [Glucophage XR] 500 mg tablet extended release 24 hr 500 mg PO QPM Qty: 30 RF: 0 Continued cholecalciferol (vitamin D3) 25 mcg (1,000 unit) Capsule 25 mcg PO DAILY RF: 0 docusate sodium 100 mg Capsule 100 mg PO BID@0830,2100 30 Days Qty: 60 RF: 1 aspirin 81 mg Tablet,Chewable 81 mg PO DAILY 30 Days Qty: 30 RF: 1 atorvastatin 20 mg Tablet 20 mg PO BEDTIME 30 Days Qty: 30 RF: 1 Changed albuterol sulfate 90 mcg/actuation HFA aerosol inhaler 2 puff INHALATION DAILY PRN (Reason: asthma) 30 Days RF: 0 Discontinued clozapine 100 mg Tablet 300 mg PO BEDTIME 30 Days Qty: 90 RF: 0 divalproex 250 mg Tablet Extended Release 24 Hr 750 mg PO DAILY 30 Days Qty: 90 RF: 0 topiramate 25 mg Tablet 50 mg PO BEDTIME 30 Days Qty: 30 RF: 0 quetiapine 100 mg tablet 100 mg PO BEDTIME RF: 0 quetiapine 100 mg tablet 100 mg PO DAILY PRN (Reason: Anxiety/Restlessness) RF: 0 lorazepam 1 mg tablet 1 mg PO DAILY PRN (Reason: Agitation) RF: 0 metoprolol succinate 25 mg tablet extended release 24 hr 37.5 mg PO BID RF: 0 Discharge Orders: Discharge Order (Routine); Ordered 11/04/20 Ordered By: Rocael Pacheco Diet: other Activity on Discharge: As tolerated Stand Alone Forms: Patient Portal Discharge page Care Plan Goals: stable mood clearer thinking not overly depressed or manic no harm to others take care of your physical and mental health attend medical and psychiatric appointments regulate blood sugar Health Concerns: schizoaffective disoder Periods of paranoia agitation and confusion periods of bull periods of depression hypertension cardiac history with abnormal EKG that appear stable elevated blood sugar obesity Plan of Treatment: recommend no added sweet diet started on metformin for elevated fasting blood sugar may also help with weight loss follow-up with primary care physician follow-up with Cardiology Latuda and clozapine Depakote is discontinued therapy senior care take medication as prescribed follow-up with blood test and doctor's office visits Dr. Rodríguez for psychiatry Patient Instructions: Type 2 Diabetes in Adults: New Diagnosis (DC), Type 2 Diabetes in the Older Adult (DC) Discharge Date/Time: 11/04/20 13:15 Mental Status Exam Mental Status Exam Patient Appearance: Disheveled and Unkempt Patient Orientation: Person, Place and Situation Level of Consciousness: Awake and Lethargic Patient Behavior: Fatigued and Isolative Behavior Comments: come cooperative often isolative to his room Mood Description: Depressed and Flat Affect Description: Withdrawn Speech Pattern: Impoverished and Monotone Thought Process: Slowed Thinking Thought Content: positive for [place] and positive for Poverty of Content Abnormal Motor Activity Signs and Symptoms: Psychomotor Retardation Judgement: Fair Data Data Completed and Pending Completed studies during hospitalization [Text1]: 10/28/20 10/29/20 10/29/20 20:30 04:52 16:50 WBC RBC Hgb Hct MCV MCH MCHC RDW Plt Count MPV Immature Gran % (Auto) Neut % (Auto) Lymph % (Auto) [place] % (Auto) Eos % (Auto) Baso % (Auto) Lymph # (Auto) [place] # (Auto) Eos # (Auto) Baso # (Auto) Abs Immat Gran (auto) Absolute Neuts (auto) Absolute Nucleated RBC Nucleated RBC % (auto) Sodium Potassium Chloride Carbon Dioxide Anion Gap BUN Creatinine Estim Creat Clear Calc Estimated GFR POC Glucose 207 H 125 H 170 H Fasting Glucose Calcium Total Bilirubin AST ALT Alkaline Phosphatase Total Protein Albumin Triglycerides Cholesterol LDL Cholesterol, Calc HDL Cholesterol COVID-19 ([facility]) COVID-19 Clin Com 10/30/20 10/30/20 10/31/20 05:39 17:25 04:19 WBC RBC Hgb Hct MCV MCH MCHC RDW Plt Count MPV Immature Gran % (Auto) Neut % (Auto) Lymph % (Auto) [place] % (Auto) Eos % (Auto) Baso % (Auto) Lymph # (Auto) [place] # (Auto) Eos # (Auto) Baso # (Auto) Abs Immat Gran (auto) Absolute Neuts (auto) Absolute Nucleated RBC Nucleated RBC % (auto) Sodium Potassium Chloride Carbon Dioxide Anion Gap BUN Creatinine Estim Creat Clear Calc Estimated GFR POC Glucose 140 H 135 H 156 H Fasting Glucose Calcium Total Bilirubin AST ALT Alkaline Phosphatase Total Protein Albumin Triglycerides Cholesterol LDL Cholesterol, Calc HDL Cholesterol COVID-19 ([facility]US) COVID-19 [employer] 10/31/20 11/01/20 11/01/20 17:30 06:13 21:50 WBC RBC Hgb Hct MCV MCH MCHC RDW Plt Count MPV Immature Gran % (Auto) Neut % (Auto) Lymph % (Auto) [place] % (Auto) Eos % (Auto) Baso % (Auto) Lymph # (Auto) [place] # (Auto) Eos # (Auto) Baso # (Auto) Abs Immat Gran (auto) Absolute Neuts (auto) Absolute Nucleated RBC Nucleated RBC % (auto) Sodium Potassium Chloride Carbon Dioxide Anion Gap BUN Creatinine Estim Creat Clear Calc Estimated GFR POC Glucose 207 H 124 H 188 H Fasting Glucose Calcium Total Bilirubin AST ALT Alkaline Phosphatase Total Protein Albumin Triglycerides Cholesterol LDL Cholesterol, Calc HDL Cholesterol COVID-19 ([facility]) COVID-19 [employer] 11/02/20 11/03/20 11/03/20 06:12 04:52 10:44 WBC RBC Hgb Hct MCV MCH MCHC RDW Plt Count MPV Immature Gran % (Auto) Neut % (Auto) Lymph % (Auto) [place] % (Auto) Eos % (Auto) Baso % (Auto) Lymph # (Auto) [place] # (Auto) Eos # (Auto) Baso # (Auto) Abs Immat Gran (auto) Absolute Neuts (auto) Absolute Nucleated RBC Nucleated RBC % (auto) Sodium Potassium Chloride Carbon Dioxide Anion Gap BUN Creatinine Estim Creat Clear Calc Estimated GFR POC Glucose 143 H 159 H Fasting Glucose Calcium Total Bilirubin AST ALT Alkaline Phosphatase Total Protein Albumin Triglycerides Cholesterol LDL Cholesterol, Calc HDL Cholesterol COVID-19 ([facility]) Negative COVID-19 Clin Com See Note 11/03/20 11/04/20 11/04/20 20:43 06:13 07:52 WBC RBC Hgb Hct MCV MCH MCHC RDW Plt Count MPV Immature Gran % (Auto) Neut % (Auto) Lymph % (Auto) [place] % (Auto) Eos % (Auto) Baso % (Auto) Lymph # (Auto) [place] # (Auto) Eos # (Auto) Baso # (Auto) Abs Immat Gran (auto) Absolute Neuts (auto) Absolute Nucleated RBC Nucleated RBC % (auto) Sodium 144 Potassium 4.0 Chloride 114 H Carbon Dioxide 18 L Anion Gap 16 BUN 27 H Creatinine 1.02 Estim Creat Clear Calc 98.9 Estimated GFR > 60 POC Glucose 146 H 156 H Fasting Glucose 151 H Calcium 8.7 Total Bilirubin 0.3 AST 16 ALT 27 Alkaline Phosphatase 60 Total Protein 6.6 Albumin 3.9 Triglycerides 391 Cholesterol 226 D LDL Cholesterol, Calc 112 HDL Cholesterol 36 D COVID-19 ([facility]) COVID-19 [employer] Com 11/04/20 07:52 WBC 5.3 RBC 4.65 Hgb 13.2 L Hct 40.8 L MCV 87.7 MCH 28.4 MCHC 32.4 RDW 14.5 Plt Count 114 L MPV 11.4 Immature Gran % (Auto) 0.6 H Neut % (Auto) 61.2 Lymph % (Auto) 25.4 [place] % (Auto) 9.8 Eos % (Auto) 2.1 Baso % (Auto) 0.9 Lymph # (Auto) 1.4 [place] # (Auto) 0.5 Eos # (Auto) 0.1 Baso # (Auto) 0.1 Abs Immat Gran (auto) 0.03 Absolute Neuts (auto) 3.3 Absolute Nucleated RBC 0.000 Nucleated RBC % (auto) 0.0 Sodium Potassium Chloride Carbon Dioxide Anion Gap BUN Creatinine Estim Creat Clear Calc Estimated GFR POC Glucose Fasting Glucose Calcium Total Bilirubin AST ALT Alkaline Phosphatase Total Protein Albumin Triglycerides Cholesterol LDL Cholesterol, Calc HDL Cholesterol COVID-19 ([facility]) COVID-19 Clin Com DS: Summary Hospital Course Hospital Course: HPI Chief Complaint: Psychosis Sources of Information: patient interviewed, chart reviewed and crisis/core team assessment reviewed Additional Sources of Information: patient known to this financial writer from previous admission HPI Narrative: the patient is a 55-year-old male with a long history of schizoaffective disorder bipolar type. Who was recently discharged on July 14 from the psychiatric unit at [place] on a combination Depakote and clozapine 300 mg. his treatment over the past few years has been complicated by and unclear cardiac event a few years ago with acute congestive heart failure and the patient tends to have a long QT. He has not been psychiatrically stable with chronic thought disorganization irritability which improved somewhat with the addition of Depakote. Case has been reviewed previously with his outpatient psychiatrist Dr. Rodríguez. The patient was referred to respite he quickly [facility] and then walked to his house. He did miss 1 or 2 doses of clozapine refusing them prior to going to the emergency room and has not been on clozapine now for number of days. He has intermittently threatening physically aggressive and irritable which previously had been uncharacteristic for him he had been living in the community in his own apartment with support. With the pandemic the amount of out reach support he has been able to get has been markedly decreased Past Psychiatric History: patient has had multiple psychiatric hospitalizations particularly over the past 1-2 years. He has not been able to restate belies on clozapine and his clozapine dose has been capped relatively moderate because of his cardiac conduction issues and question of CHF in the past. He had responded reportedly well to Latuda in the past he was less agitated on Depakote Medical Evaluation Reviewed: Yes [facility] Medical History Cardiac arrhythmia CHF (congestive heart failure) Coronary artery disease Hypertension Myocardial infarction Schizoaffective disorder Surgical History History of intestinal surgery History of transurethral resection of prostate Family History: patient was adopted Social History: patient not working not is on disability was living in a supportive apartment but has not been able to maintain this setting in an extended period of time Substance History: none noted Trauma History: not evaluated Diagnostics Vital Signs (24Hr):Vital Signs - 24 hr 08/10/20 16:21 08/10/20 18:00 08/10/20 19:54 Temperature 97.2 F 97.5 F 97.5 F Pulse Rate 85 87 87 Respiratory Rate 18 18 Blood Pressure 158/83 H 150/67 H 150/67 H Pulse Oximetry 96 96 96 08/10/20 20:54 08/11/20 05:25 Temperature 96.8 F Pulse Rate 87 97 Respiratory Rate 22 H Blood Pressure 150/67 H 133/88 Pulse Oximetry Body Mass Index 33.2 Labs Results: 08/05/20 13:17 document embedded image 08/05/20 13:17 document embedded image Labs:Laboratory Results - last 48 hr 08/10/20 12:45 Coronavirus (PCR) NEGATIVE Meds/Allergies Meds Home Medications Medication Instructions Recorded Confirmed Type cholecalciferol (vitamin D3) 25 mcg PO DAILY 07/07/20 08/05/20 History metoprolol succinate 37.5 mg PO BID 07/28/20 08/05/20 History albuterol sulfate 2 puff INHALATION DAILY PRN 08/05/20 08/05/20 History lorazepam 1 mg PO DAILY PRN 08/05/20 08/05/20 History quetiapine 100 mg PO BEDTIME 08/05/20 08/05/20 History quetiapine 100 mg PO DAILY PRN 08/05/20 08/05/20 History Allergies Allergies Allergy/AdvReac Type Severity Reaction Status Date / Time lithium [[place]] Allergy Severe TOXICITY Verified 07/28/20 18:08 thiothixene Allergy Severe SWELLING Verified 08/05/20 07:28 barium sulfate Allergy Intermediate NAUSEA & Verified 08/05/20 07:28 [BARIUM SULFATE] VOMITING haloperidol Allergy Intermediate MUSCLE Verified 07/28/20 18:08 TENSION IN LEGS benztropine Allergy Unknown benztropine Verified 08/05/20 07:28 mesylate- unknown diphenhydramine Allergy Unknown urinary Verified 08/05/20 07:28 [From Benadryl] retention fluphenazine Allergy Unknown UNKNOWN Verified 08/05/20 07:28 gabapentin [From NEURONTIN] Allergy Unknown UNKNOWN Verified 07/28/20 18:08 olanzapine [Zyprexa] AdvReac Unknown confusion Verified 08/05/20 07:28 prolixen Allergy Unknown Unknown Uncoded 07/28/20 16:56 Mental Status Exam Mental Status Exam Narrative: somewhat disheveled limited engagement in mileu, Patient Appearance: Disheveled and Unkempt Patient Orientation: Person and Situation ( I am in the ) Level of Consciousness: Awake and Alert Patient Behavior: Posturing, Suspicious, Aggressive, Belligerent and Verbal Threats Mood Description: Suspicious, Depressed, Blunted and Angry Affect Description: Suspicious, Depressed and Angry Ability to Follow Directions: Fair Speech Pattern: Mumbled and Includes Profanity Delusions: Paranoid Ideation Thought Process: Illogical and Distracted Thought Content: positive for Poverty of Content, positive for Tangential, positive for Disorganized and positive for Homicidal Ideation ( threatening) Depressive Symptoms: Increased Anxiety and Increased Irritability Abnormal Motor Activity Signs and Symptoms: Aggression Judgement: Poor Judgement and Insight: patient does not believe he has a mental illness does not need treatment becomes threatening when asked questions stating on Assessment & Plan Assessment & Plan (1) Schizoaffective disorder: Status: Acute Code(s): F25.9 - Schizoaffective disorder, unspecified (2) Aggression: Status: Acute Code(s): R46.89 - Other symptoms and signs involving appearance and behavior (3) Cardiac arrhythmia: Status: Acute Code(s): I49.9 - Cardiac arrhythmia, unspecified Assessment and Plan: monitor QT with introduction of medication. Will try Invega with consideration of potentially long-acting injectable. Continue Depakote this has been helpful. Patient on one-to-one secondary to agitated aggressive and threatening behavior with recent violence poor judgment Informed Consent: does not understand Reason for continued inpatient stay Substantial Risk for: harm to others, inability to function and rapid decompensation HOSPITAL COURSE PLEASE SEE ABOVE FOR PSYCHIATRIC ADMISSION NOTE. THE PATIENT HAS A HISTORY OF SCHIZOAFFECTIVE DISORDER TREATMENT RESISTANT COMPLICATED BY INCREASE QTC HISTORY OF STRESS CARDIOMYOPATHY HISTORY OF ASHD. THE PATIENT WAS FLAT DEPRESSED AND AGGRESSIVE. HE HAD DIFFICULTY PROCESSING INFORMATION OR HAD FAILED TRIALS WITH CLOZAPINE AND SEROQUEL AND CLOZAPINE AND DURING THE INITIAL PART OF HIS HOSPITALIZATION INVEGA. THE THE PATIENT NEEDED FREQUENT EKGS TO MONITOR HER HIS REACTION TO DIFFERENT ANTIPSYCHOTIC TRIALS AND THIS DID ALSO LIMIT HIS DOSING OF CLOZAPINE. THE PATIENT WAS EVENTUALLY COMMITTED ON A SECTION 8 AND ARTHUR AND REFERRED TO Johnny. BECAUSE OF PAST HISTORY OF BEING STABILIZED WITH LATUDA CLOZAPINE HE THIS WAS EVENTUALLY TRIED. THE PATIENT HAD FAILED COMBINATIONS OF DEPAKOTE TOPAMAX CLOZAPINE AND SEROQUEL AND CLOZAPINE AND INVEGA. EVENTUALLY HE WAS STARTED ON LATUDA AND HE DID SHOW INCREASED FOR FUNCTIONING AND STABILITY ON THE COMBINATION OF LATUDA AND CLOZAPINE. CONTINUE TO HAVE SOME DIFFICULTY PROCESSING INFORMATION AT TIMES BUT BECAME MUCH LESS OF WAY OF AGGRESSION. HE DID HAVE A CARDIOLOGY CONSULT DURING THIS HOSPITALIZATION AND THEY REVIEWED HIS EKG STABILITY ON THE COMBINATION OF LATUDA AND CLOZAPINE AND FELT THAT THIS COULD CONTINUE. THEY DID RECOMMEND HE BE SEEN BY HIS OUTPATIENT GANG RIPSAW OPERATOR. HE WAS STARTED ON METFORMIN FOR [id number] DIABETES MELLITUS MOST LIKELY SECONDARY TO OBESITY CHRONIC USE OF ANTIPSYCHOTICS. PATIENT WAS AGREEABLE TO STARTING METFORMIN HE WAS LESS DEPRESSED AND IRRITABLE BY THE TIME OF DISCHARGE. HE WAS ABLE EVENTUALLY TO COOPERATE WITH DISCHARGE PLANNING TO A [facility] SETTING AND DID REQUIRE TRANSFER TO A LONGER-TERM HOSPITAL Time Spent with Patient Time attestation: Total time spent providing and/or coordinating discharge services:
--- NOTE | 2020-11-04 10:56 | PC.NURSE ---
PT IS AWARE OF DISCHARGE TODAY, 11/04/2020 AT 1300. HE REPORTS READINESS TO GO TO HIS HALF-WAY. PT IS LESS LABILE THAN UPON ADMISSION. PT DOES NOT DISPLAY AGGRESSION. PT DENIES SUICIDAL OR HOMICIDAL IDEATIONS. PT DOES NOT FEEL THE URGE TO HARM ANYONE. PT DECLINES VISUAL OR AUDITORY HALLUCINATIONS. HE HAS BEEN CALM AND COOPERATIVE WITH MEDICATIONS AND CARE. PT WILL FOLLOW UP WITH PCP AND CODING VALIDATOR. APPOINTMENTS HAVE BEEN MADE WITH BOTH. PAPERWORK HAS BEEN FAXED TO PCP AND CODING VALIDATOR PER PROTOCOL. PT REPORTS 4/10 ANXIETY. PT REPORTS NO DEPRESSION. PT DISPLAYS MILD DELUSIONS BUT IS IN BEHAVIROAL CONTROL.
== END 2020-11-04 13:15 | disposition other institution (70) | DRG 885 ==
LOC: HO.ED 12:50 → HO.PM5 08-10 16:44
PROVIDERS: Nurse Practitioner Family; Physician Assistant; Psychiatry & Neurology Psychiatry; Admitting Provider Psychiatry & Neurology Psychiatry; Emergency Provider Emergency Medicine; PCP Internal Medicine; Visit Provider Psychiatry & Neurology Psychiatry
DX: F25.0 Schizoaffective disorder, bipolar type (principal); I42.1 Obstructive hypertrophic cardiomyopathy; I10 Essential (primary) hypertension; I49.9 Cardiac arrhythmia, unspecified; I25.10 Atherosclerotic heart disease of native coronary artery without angina pectoris; E11.9 Type 2 diabetes mellitus without complications; Z20.822 Contact with and (suspected) exposure to COVID-19; Z79.82 Long term (current) use of aspirin; Z79.84 Long term (current) use of oral hypoglycemic drugs; Z79.899 Other long term (current) 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
CPT/HCPCS: 36415; 80048; 80053; 80061; 80159; 80164; 80307; 81003; 82140; 82607; 82746; 82947; 83036; 83735; 83880; 84443; 85025; 87635; 90792; 93005; 99231; 99232; 99233; 99285; J2060; U0003

== ENCOUNTER → 2020-08-10 16:33 | Outpatient (BNV) | payer MEDICARE, MEDICAID, SELFPAY | PROVIDERS: Admitting Provider Psychiatry & Neurology Psychiatry; Emergency Provider Emergency Medicine; PCP Internal Medicine; Visit Provider Psychiatry & Neurology Psychiatry | DX: F25.9 Schizoaffective disorder, unspecified (principal); I49.9 Cardiac arrhythmia, unspecified | CPT/HCPCS: 99499 ==

== ENCOUNTER → 2020-12-28 14:13 | Outpatient (BNVA) | payer MEDICARE, MEDICAID, SELFPAY | PROVIDERS: PCP Internal Medicine; Visit Provider Internal Medicine | DX: I42.1 Obstructive hypertrophic cardiomyopathy (principal); I10 Essential (primary) hypertension; R94.31 Abnormal electrocardiogram [ECG] [EKG]; F25.0 Schizoaffective disorder, bipolar type | CPT/HCPCS: 93005; 99212 ==

== ENCOUNTER → 2021-02-09 13:41 | Outpatient (REF) | payer MEDICARE, MEDICAID, SELFPAY ==
--- NOTE | 2021-02-09 13:45 | CA_ITS ---
Transthoracic Echocardiogram Patient (Last, First, Middle): Navid Carvalho, Gender: Male Date of : 1965 Age: 56 Procedure Date: 02/09/2021 Procedure Type: Transthoracic Echocardiogram Location: OP Height: 172.72 cm Weight: 107.05 kg BSA: 2.19 m2 Heart Rate: bpm BP: 160 / 90 mmHg Airplane First Officer: TIKI Referring MD: Manuel Arriaza MD Symptoms: I42.1 - Obstructive hypertrophic cardiomyopathy Study Quality: Technically Difficult/contrast ECG Rhythm: Sinus Conclusions: - The left ventricular systolic function is hyperdynamic. The visually estimated ejection fraction is >70%. - There is severe septal asymmetric hypertrophy. - Gradients as described below. Findings Procedure Information Contrast agent, definity, is being given per protocol without apparent complications. Left Ventricle Normal left ventricular cavity size. The left ventricular systolic function is hyperdynamic. The visually estimated ejection fraction is >70%. There is no evidence of regional wall motion abnormalities. Evidence suggests grade I (mild) diastolic dysfunction. There is severe septal asymmetric hypertrophy. Resting gradient - apex -10 mm Hg; mid 3mmHg; base 14mmHg; LVOT -24 mm Hg; with valsalva- apex 8mmHg; mid ventricle 3mmHg; base 18mmHg; LVOT 61mmHg. septal thickness in the proximal septum was around 1.7-1.8 cm but difficult to measure. Unable to assess systolic anterior motion of mitral valve due to suboptimal image quality; possibly CON involving tip of anterior leaflet/chord. Right Ventricle Normal right ventricular cavity size and systolic function. Atria The left atrium is normal in size. The right atrium is normal in size. Aortic Valve There is a normal trileaflet aortic valve. There is no aortic valve stenosis. There is no aortic valve regurgitation. Mitral Valve The mitral valve appears normal. There is no mitral valve regurgitation. There is no mitral valve stenosis. Pulmonic Valve The pulmonic valve was not well visualized. Tricuspid Valve Normal tricuspid valve structure. There is trace tricuspid valve regurgitation. The pulmonary artery systolic pressure is normal. Great Vessels There is mild dilatation of the ascending aorta measuring 3.90 cm. Venous The inferior vena cava is normal in size and collapses greater than 50% with inspiration. Pericardium/Pleural There is no evidence of pericardial effusion. Prior Study Comparison No significant change compared to prior study dated: 07/25/2019. Measurements 2D Linear Measurements IVSd: 1.13 0.6-0.9/0.6-1.0 cm LVIDd: 3.57 3.9-5.3/4.2-5.9 cm LVIDd Index: 1.63 2.4-3.2/2.2-3.1 cm/m2 LVIDs: 2.38 2.0-3.6 cm LVPWd: 1.13 0.7-1.1 cm Ao Root: 4.00 2.1-3.5 cm LA Diam: 4.10 2.7-3.8/3.0-4.0 cm LAIDs Index: 1.87 1.5-2.3 cm/m2 LV Mass: 158.76 67-162/88-224 g LV Mass Index: 72.49 43-95/49-115 g/m2 LVOT Diam: 2.50 3.0+(-)1.3 cm Mitral Valve MV Pk E: 0.75 MV PK A: 0.94 MV Decel Time: 183.00 E/A: 0.80 E'Lateral: 7.54 E'Medial: 3.96 E/E' Med: 19.00 E/E' Lat: 10.00 PHT: 54.00 MVA PHT: 4.07 Decel Lyon: 4.10 Aortic Valve AoV Pk Deshawn: 2.42 AoV Mn Deshawn: 1.75 AoV VTI: 0.44 AoV Pk Grad: 23.00 Aov Mn Grad: 14.00 LVOT LVOT Diam: 2.50 LVOT Area: 4.91 Diastolic Function MV Pk E: 0.75 MV Pk A: 0.94 E/A: 0.80 E'Medial: 3.96 E/E' Med: 19.00 E' Laterial: 7.54 E/E' Lat: 10.00 Great Vessels Aorta Ao Root-2D: 4.00 2.0-3.7 cm Ao Asc: 3.90 2.1-3.4 cm Ao Arch: 3.00 Updated in Other Vendor System with Status of Final Manuel Arriaza MD electronically signed on 02/11/2021 4:12:15 PM with status of Final
== END ==
LOC: HO.CARD 13:41
PROVIDERS: Visit Provider Internal Medicine
DX: I42.1 Obstructive hypertrophic cardiomyopathy (principal)
CPT/HCPCS: 93306; Q9957

== ENCOUNTER 2021-02-17 10:04 | Outpatient (REF) | payer MEDICARE, MEDICAID, SELFPAY ==
[2021-02-17 10:30] LABS: MANUAL DIFF FLAG NO
[2021-02-17 10:44] LABS: Basophils Percent Auto 0.6 % (0-2); Eosinophils Absolute Auto 0.1 X10*3/uL (0.0-0.4); Eosinophils Percent Auto 0.9 % (0-4); Hemoglobin 14.8 g/dl (14.0-18.0); Imm Gran Abs Auto 0.06 X10*3/uL (0.00-0.03); Imm Gran Pct Auto 0.9 % (0.0-0.4); Lymphocytes Absolute Auto 1.2 X10*3/uL (1.2-4.9); Lymphocytes Percent Auto 18.5 % (20-40); Mean Corpuscular HGB Conc 31.5 g/dl (31.0-36.0); Mean Corpuscular Hemoglobin 28.2 pg (27.0-33.0); Mean Corpuscular Volume 89.5 fL (80-98); Mean Platelet Volume 11.5 fL (9.4-12.4); Monocytes Absolute Auto 0.7 X10*3/uL (0.1-1.2); Monocytes Percent Auto 10.2 % (2-11); Neutrophils Absolute Auto 4.5 X10*3/uL (2.0-8.3); Neutrophils Percent Auto 68.9 % (45-73); Platelet Count 136 X10*3/uL (160-400); Red Blood Count 5.25 X10*6/uL (4.60-5.80); Red Cell Distribution Width 15.1 % (11.0-16.0); White Blood Count 6.5 X10*3/uL (4.8-10.8)
[2021-02-17 11:17] LABS: Glucose Urine UA NEG (NEG); Leukocyte Esterase Urine NEG (NEG); Nitrite Urine NEG (NEG); Specific Gravity - Urine 1.025 (1.005-1.025); Urine Blood NEG (NEG); Urine Ketones NEG (NEG); Urine Protein 1+ MG/DL (NEG-TRACE)
[2021-02-17 11:18] LABS: Appearance Urine CLEAR; Color Urine YELLOW
[2021-02-17 11:21] LABS: Alanine Aminotransferase 38 U/L (0-40); Albumin Level 4.2 g/dL (3.5-5.0); Alkaline Phosphatase 71 U/L (39-117); Anion Gap 16 (12-20); Aspartate Amino Transferase 23 U/L (5-37); Bilirubin Total 0.2 mg/dL (0.0-1.0); Blood Urea Nitrogen 18 mg/dL (9-16); Calcium 9.7 mg/dL (8.4-10.2); Carbon Dioxide 24 mmol/L (22-29); Chloride 107 mmol/L (96-108); Cholesterol 302 mg/dL; Estimated Glomerular Filt Rate > 60; Glucose Fasting 147 mg/dL (60-99); HDL Cholesterol 34 mg/dL; Potassium 3.7 mmol/L (3.3-5.1); Sodium 143 mmol/L (135-145); Total Protein 6.9 g/dL (6.5-8.0); Triglycerides 572 mg/dL
[2021-02-17 11:31] LABS: TSH reflex Free T4 0.86 uIU/mL (0.32-4.0); Vitamin D 25-OH Total 26.6 ng/mL (>30)
[2021-02-17 11:31] LABS: RBC Urine 0-2 /HPF (0); Squamous Epithelial Cell Urine TRACE /LPF; WBC Urine 0-2 /HPF (0-4)
[2021-02-17 11:48] LABS: Creatinine Urine 121.65 mg/dL
== END 2021-02-17 10:05 | disposition home or self-care (01) ==
LOC: HO.LAB 10:04
PROVIDERS: PCP Internal Medicine; Visit Provider Internal Medicine
DX: E78.00 Pure hypercholesterolemia, unspecified (principal); I10 Essential (primary) hypertension; E11.9 Type 2 diabetes mellitus without complications; I42.1 Obstructive hypertrophic cardiomyopathy; E66.9 Obesity, unspecified; E55.9 Vitamin D deficiency, unspecified
CPT/HCPCS: 36415; 80053; 80061; 81001; 82043; 82306; 84443; 85025

== ENCOUNTER → 2021-03-29 10:22 | Outpatient (BNVA) | payer MEDICARE, MEDICAID, SELFPAY | PROVIDERS: PCP Internal Medicine; Referring Provider Internal Medicine; Visit Provider Internal Medicine | DX: I42.1 Obstructive hypertrophic cardiomyopathy (principal); I10 Essential (primary) hypertension; R94.31 Abnormal electrocardiogram [ECG] [EKG]; F25.0 Schizoaffective disorder, bipolar type; F17.200 Nicotine dependence, unspecified, uncomplicated | CPT/HCPCS: 93005; 99212 ==

== ENCOUNTER → 2021-04-05 10:19 | Outpatient (BNVA) | payer MEDICARE, MEDICAID, SELFPAY | PROVIDERS: PCP Internal Medicine; Visit Provider Urology | DX: E29.1 Testicular hypofunction (principal) | CPT/HCPCS: 99212 ==

== ENCOUNTER → 2021-04-19 14:34 | Outpatient (REF) | payer MEDICARE, MEDICAID, SELFPAY ==
--- NOTE | 2021-04-19 08:52 | ECG_ITS ---
Hook-up date: 2021-04-19 14:40:00 Duration: 41:28:00 Test Indications: HYPERTROPHIC CARDIOMYOPATHY Medications: 380242 QRS complexes 7 Ventricular ectopics which represent <1 % of total QRS comp. 2055 Supraventricular ectopics which represent 1 % of total QRS comp. * Paced QRS complexs which represent % of total QRS comp. VENTRICULAR ECTOPY 7 Isolated 0 Bigeminal Cycles 0 Couplets 0 Runs 0 Beats in Runs * Beats LONGEST at * BPM at :: -- * Beats FASTEST at * BPM at :: -- SUPRAVENTRICULAR ECTOPY 2049 Isolated 3 Couplets 0 Runs 0 Beats in Runs * Beats LONGEST at * BPM at :: -- * Beats FASTEST at * BPM at :: -- HEART RATES 64 MIN at 09:50:02 2021-04-20 82 AVG 115 MAX at 15:34:55 2021-04-20 LONGEST RR 0.9440 secs at 09:50:00 2021-04-20 S-T LEVELS Channel 1 - 128 mm at 14:40:00 2021-04-19 - 128 mm at 14:40:00 2021-04-19 Channel 2 - 128 mm at 14:40:00 2021-04-19 - 128 mm at 14:40:00 2021-04-19 Channel 3 - 128 mm at 03:35:91 -- - 128 mm at 03:35:91 Underlying rhythm is sinus; Average ventricular rate 82/min; Occasional Premature atrial complexes -2% burden; isolated; Rare PVCs; Patient diary not available for review. Referred By: Bryson Mauro Overread By: BRYSON MAURO
== END ==
LOC: HO.CARD 14:34
PROVIDERS: PCP Internal Medicine; Referring Provider Internal Medicine; Visit Provider Internal Medicine
DX: I42.1 Obstructive hypertrophic cardiomyopathy (principal)
CPT/HCPCS: 93226

== ENCOUNTER → 2021-06-28 10:56 | Outpatient (BNVA) | payer MEDICARE, MEDICAID, SELFPAY | PROVIDERS: PCP Internal Medicine; Referring Provider Internal Medicine; Visit Provider Internal Medicine | DX: I42.1 Obstructive hypertrophic cardiomyopathy (principal); I10 Essential (primary) hypertension; R94.31 Abnormal electrocardiogram [ECG] [EKG]; F25.0 Schizoaffective disorder, bipolar type; F17.200 Nicotine dependence, unspecified, uncomplicated | CPT/HCPCS: 93005; 99212 ==

== ENCOUNTER 2021-07-21 12:50 | Outpatient (REF) | payer MEDICARE, MEDICAID, SELFPAY ==
--- NOTE | ~2021-07-21 | XR_ITS ---
EXAMINATION: XR FOOT, LEFT CLINICAL INFORMATION: Pain COMPARISON: None TECHNIQUE: AP, lateral, and oblique views of the left foot. FINDINGS: There is partially fused os naviculare. Mild degenerative osteoarthritic changes first metatarsophalangeal joint. Mild hallux valgus. No acute fracture. No significant bone erosions. There are large posterior and inferior calcaneal spurs. XR/XR foot LT min 3V IMPRESSION: Partial diffuse os naviculare. Underlying mild DJD and calcaneal spurs. Mild hallux valgus.
--- NOTE | ~2021-07-21 | XR_ITS ---
EXAMINATION: XR knee RT 3V, XR knee LT 3V CLINICAL INFORMATION: Reason for Exam M25.561 - Pain in right knee COMPARISON: None available at the time of this dictation. TECHNIQUE: frontal, lateral, tunnel and patella sunrise views FINDINGS: BONES: No fracture or dislocation is present. JOINTS: Narrowing of joint spaces and developed osteophytes from the edges of articular surfaces suggest degenerative osteoarthritis. Mild degenerative changes of the patellofemoral joint. SOFT TISSUE: There are small knee joint effusions. XR/XR knee RT 3V IMPRESSION: Mild bilateral tricompartment DJD. Bilateral small knee joint effusions.
--- NOTE | ~2021-07-21 | XR_ITS ---
EXAMINATION:XR foot RT min 3V, XR ankle RT min 3V VIEWS ACQUIRED: Frontal lateral and oblique, frontal and oblique. CLINICAL INFORMATION: Pain Reason for Exam M79.671 - Pain in right foot COMPARISON: None available at the time of this dictation. FINDINGS: Prominent accessory ossicle near the area medial aspect of the navicular bone suggesting os naviculare. There are degenerative osteoarthritic changes especially involving the first metatarsophalangeal joint. Bone alignments are satisfactory. No fracture. No evidence of erosion. There are large posterior and inferior calcaneal spurs. There is an 18, in the distal tibia. Ankle mortise is preserved. Talar dome is intact. There is mild hallux valgus. XR/XR ankle RT min 3V IMPRESSION: Mild to moderate degenerative osteoarthritis. Mild hallux valgus. Os naviculare. Large calcaneal spur. Metallic anchor in the distal tibia.
--- NOTE | ~2021-07-21 | XR_ITS ---
EXAMINATION: XR knee RT 3V, XR knee LT 3V CLINICAL INFORMATION: Reason for Exam M25.561 - Pain in right knee COMPARISON: None available at the time of this dictation. TECHNIQUE: frontal, lateral, tunnel and patella sunrise views FINDINGS: BONES: No fracture or dislocation is present. JOINTS: Narrowing of joint spaces and developed osteophytes from the edges of articular surfaces suggest degenerative osteoarthritis. Mild degenerative changes of the patellofemoral joint. SOFT TISSUE: There are small knee joint effusions. XR/XR knee LT 3V IMPRESSION: Mild bilateral tricompartment DJD. Bilateral small knee joint effusions.
--- NOTE | ~2021-07-21 | XR_ITS ---
EXAMINATION:XR foot RT min 3V, XR ankle RT min 3V VIEWS ACQUIRED: Frontal lateral and oblique, frontal and oblique. CLINICAL INFORMATION: Pain Reason for Exam M79.671 - Pain in right foot COMPARISON: None available at the time of this dictation. FINDINGS: Prominent accessory ossicle near the area medial aspect of the navicular bone suggesting os naviculare. There are degenerative osteoarthritic changes especially involving the first metatarsophalangeal joint. Bone alignments are satisfactory. No fracture. No evidence of erosion. There are large posterior and inferior calcaneal spurs. There is an 18, in the distal tibia. Ankle mortise is preserved. Talar dome is intact. There is mild hallux valgus. XR/XR foot RT min 3V IMPRESSION: Mild to moderate degenerative osteoarthritis. Mild hallux valgus. Os naviculare. Large calcaneal spur. Metallic anchor in the distal tibia.
--- NOTE | ~2021-07-21 | XR_ITS ---
EXAMINATION:XR ankle LT min 3V CLINICAL INFORMATION: Pain COMPARISON: None TECHNIQUE: Frontal and lateral of the ankle. FINDINGS: Plate and multiple screws across old healed fracture of the distal fibula. Distal tibia and talar domes are intact. Ankle mortise is preserved. No acute fracture or dislocation. XR/XR ankle LT min 3V IMPRESSION: No acute fracture or dislocation. Old healed fracture of the distal fibula.
== END 2021-07-21 12:51 | disposition home or self-care (01) ==
LOC: HO.XRAY 12:50
PROVIDERS: PCP Internal Medicine; Visit Provider Internal Medicine
DX: M25.571 Pain in right ankle and joints of right foot (principal); M25.572 Pain in left ankle and joints of left foot; M79.671 Pain in right foot; M79.672 Pain in left foot; M25.561 Pain in right knee; M25.562 Pain in left knee
CPT/HCPCS: 73562; 73610; 73630

== ENCOUNTER → 2021-08-04 09:58 | Outpatient (BNVA) | payer MEDICARE, MEDICAID, SELFPAY | PROVIDERS: PCP Internal Medicine; Visit Provider Internal Medicine | DX: E66.9 Obesity, unspecified (principal); G47.33 Obstructive sleep apnea (adult) (pediatric); J44.9 Chronic obstructive pulmonary disease, unspecified; F17.200 Nicotine dependence, unspecified, uncomplicated | CPT/HCPCS: 99202 ==

== ENCOUNTER 2021-08-12 07:34 | Outpatient (REF) | payer MEDICARE, MEDICAID, SELFPAY ==
--- NOTE | ~2021-08-12 | XR_ITS ---
EXAMINATION: XR KNEE AP STANDING CLINICAL INFORMATION: Pain in the right knee COMPARISON: 07/21/2021 TECHNIQUE: AP bilateral standing view of the knees was obtained. FINDINGS: No fracture or subluxation of either knee. Medial and lateral compartmental joint spaces are maintained bilaterally. Small marginal osteophytes of the medial and lateral compartments. The soft tissues are unremarkable. XR/XR knee standing BI IMPRESSION: Mild degenerative changes of both knees at the medial and lateral compartments.
== END 2021-08-12 07:35 | disposition home or self-care (01) ==
LOC: HO.HOSX 07:34
PROVIDERS: Visit Provider Physician Assistant
DX: M17.0 Bilateral primary osteoarthritis of knee (principal); M19.071 Primary osteoarthritis, right ankle and foot; M19.072 Primary osteoarthritis, left ankle and foot
CPT/HCPCS: 73565; 99202

== ENCOUNTER 2021-08-26 10:13 | Outpatient (REF) | payer MEDICARE, MEDICAID, SELFPAY ==
--- NOTE | 2021-08-26 16:51 | PFT_ITS ---
FLOWS: FEV1 68% of predicted at 2.36 L. FVC 61% of predicted at 2.79 L. FEV1 to FVC ratio of 0.85. No bronchodilator response except in small to medium airways. LUNG VOLUMES: Total lung capacity 84% of predicted at 5.53 L. Residual volume 131% of predicted at 2.72 L. Slow vital capacity 62% of predicted at 2.81 L. Expiratory reserve volume 18% of predicted at 0.24 L. Diffusion capacity is moderately decreased, diffusion capacity corrects to normal after adjustment for alveolar ventilation. IMPRESSION: No obstructive or restrictive ventilatory defect. No bronchodilator response except in small to medium airways. Increased residual volume suggests air trapping. Borderline diffusion capacity suggests an early emphysema. MD RADHA Watson/MODL / [id number]
== END 2021-08-26 10:14 | disposition home or self-care (01) ==
LOC: HO.RESP 10:13
PROVIDERS: PCP Internal Medicine; Visit Provider Internal Medicine
DX: J44.9 Chronic obstructive pulmonary disease, unspecified (principal); E66.9 Obesity, unspecified; F17.200 Nicotine dependence, unspecified, uncomplicated
CPT/HCPCS: 94060; 94727; 94729

== ENCOUNTER 2021-08-29 12:02 | Outpatient (REF) | payer MEDICARE, MEDICAID, SELFPAY ==
[2021-08-29 12:50] LABS: Basophils Percent Auto 0.5 % (0-2); Eosinophils Absolute Auto 0.1 X10*3/uL (0.0-0.4); Eosinophils Percent Auto 0.9 % (0-4); Hematocrit 42.9 % (42.0-52.0); MANUAL DIFF FLAG SCAN; PLT CLUMP 1; SCAN SMEAR FLAG 1
[2021-08-29 12:52] LABS: Hemoglobin 13.8 g/dl (14.0-18.0); Imm Gran Abs Auto 0.06 X10*3/uL (0.00-0.03); Imm Gran Pct Auto 0.9 % (0.0-0.4); Lymphocytes Absolute Auto 1.3 X10*3/uL (1.2-4.9); Lymphocytes Percent Auto 20.1 % (20-40); Mean Corpuscular HGB Conc 32.2 g/dl (31.0-36.0); Mean Corpuscular Hemoglobin 28.2 pg (27.0-33.0); Mean Corpuscular Volume 87.6 fL (80.0-98.0); Monocytes Absolute Auto 0.6 X10*3/uL (0.1-1.2); Neutrophils Absolute Auto 4.5 x10*3/uL (2.0-8.3); Neutrophils Percent Auto 68.6 % (45-73); Platelet Count 130 X10*3/uL (160-400); Red Cell Distribution Width 14.8 % (11.0-16.0); White Blood Count 6.6 X10*3/uL (4.8-10.8)
[2021-08-29 13:09] LABS: SLIDE REVIEW VERIFIED
[2021-08-29 13:34] LABS: Estimated Average Glucose 148 mg/dL; Hemoglobin A1c % 6.8 %
[2021-08-29 13:40] LABS: Alanine Aminotransferase 35 U/L (0-40); Albumin Level 4.1 g/dL (3.5-5.0); Alkaline Phosphatase 75 U/L (39-117); Anion Gap 15 (12-20); Aspartate Amino Transferase 25 U/L (5-37); Bilirubin Total 0.2 mg/dL (0.0-1.0); Blood Urea Nitrogen 13 mg/dL (9-16); Calcium 9.2 mg/dL (8.4-10.2); Carbon Dioxide 23 mmol/L (22-29); Chloride 110 mmol/L (96-108); Cholesterol 204 mg/dL; Estimated Glomerular Filt Rate > 60; Glucose Fasting 129 mg/dL (60-99); HDL Cholesterol 32 mg/dL; LDL Cholesterol Calculated 112 mg/dl; Potassium 4.3 mmol/L (3.3-5.1); Sodium 144 mmol/L (135-145); Total Protein 6.6 g/dL (6.5-8.0); Triglycerides 303 mg/dL
[2021-08-29 14:03] LABS: Appearance Urine CLEAR; Color Urine YELLOW; Glucose Urine UA NEG (NEG); Leukocyte Esterase Urine NEG (NEG); Nitrite Urine NEG (NEG); Specific Gravity - Urine 1.015 (1.005-1.025); UACC Culture Trigger NO; Urine Blood NEG (NEG); Urine Ketones NEG (NEG); Urine Protein 1+ MG/DL (NEG-TRACE)
[2021-08-29 14:11] LABS: Vitamin D 25-OH Total 26.7 ng/mL (>30)
[2021-08-29 14:18] LABS: RBC Urine 0-2 /HPF (0); WBC Urine 0-2 /HPF (0-4)
[2021-08-29 14:48] LABS: Prostate Specific Antigen < 0.05 ng/mL (<0.05-4.0)
[2021-08-29 16:48] LABS: Creatinine Urine 79.75 mg/dL; Microalbum/Creatinine Ratio Ur 278.3 ug/mg cr
== END 2021-08-29 12:03 | disposition home or self-care (01) ==
LOC: HO.LAB 12:02
PROVIDERS: PCP Internal Medicine; Visit Provider Internal Medicine
DX: I10 Essential (primary) hypertension (principal); N40.0 Benign prostatic hyperplasia without lower urinary tract symptoms; E55.9 Vitamin D deficiency, unspecified; E78.00 Pure hypercholesterolemia, unspecified; E11.9 Type 2 diabetes mellitus without complications
CPT/HCPCS: 36415; 80053; 80061; 81001; 81003; 82043; 82306; 83036; 84153; 84443; 85025

== ENCOUNTER → 2021-09-19 11:12 | Outpatient (BNVA) | payer MEDICARE, MEDICAID, SELFPAY | PROVIDERS: PCP Internal Medicine; Visit Provider Internal Medicine | DX: G47.33 Obstructive sleep apnea (adult) (pediatric) (principal); J44.9 Chronic obstructive pulmonary disease, unspecified; F17.200 Nicotine dependence, unspecified, uncomplicated | CPT/HCPCS: 99212 ==

== ENCOUNTER 2021-09-21 12:00 | Outpatient (RCR) | payer MEDICARE, MEDICAID, SELFPAY ==
--- NOTE | 2021-08-29 17:02 | MHC.PT.EP ---
[facility] [place] Office [place] Office [place] Office [address] [place] [address] [phone] F: [phone] F: [phone] F: [phone] F: [phone] Physical Therapy Plan of Care Date of Evaluation: Date of Surgery: NA Diagnosis: B KNEE AND ANKLE PAIN Assessment: Pt IS 56 YO M REFERRED TO PT FROM [facility]THO ([facility]) WITH B KNEE AND ANKLE PAIN. Pt REPORT 24 YRS AGO FRACTURED ANKLES. HAS NEVER HAD PT. 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 HAS PSYCH HX, DOES NOT DRIVE. PRESENTS WITH TIGHT LE MMS WITH SOME LIMITATIONS NOTED IN KNEE AND ANKLE ROM. Pt MAY HAVE SOME TROUBLE WITH CARRYOVER WITH EXS (REPORTS MAY NOT BE ABLE TO DO THEM BECAUSE BED IS TOO SOFT (WAS GIVEN EXS FOR SITTING ALSO) WITH REPORTS OF MULTIPLE COMPLAINTS RE CARE AT PRISON (WAITING FOR TYLENOL, NEED FOR RIDE TO GROCERY STORE, HAD REEL AND REWINDER OPERATOR IN PAST BUT NOT NOW, WANTED A DIFFERENT TYPE OF BED ETC..). WILL SEE 2X/WK X 4 WEEKS AND ASSESS Pt'S ABILITY TO PERF EXS/STRETCHES IN HOME ENVIRONMENT. OF NOTE, NO CAREGIVER WITH Pt TODAY..MAY BENEFIT FROM CAREGIVER STAYING WITH Pt TO HELP WITH CARRYOVER OF HEP Frequency and Duration: The patient will be seen 2X/WK X 4 WKS Short Term Goals: 1. INCREASED AWARENESS LE CARE 2.I HEP WITH DC EX PLAN Pipe Chipper Goals: 1. DECREASED PAIN AT LEAST 50% IN KNEES WITH ADLS 2. DECREASED PAIN AT LEAST 50% IN ANKLES WITH ADLS Treatment Plan: Modalities to reduce pain, spasms and effusion. Manual therapy to restore motion and function. Therapeutic exercise to improve strength and flexibility. Neuromuscular re-education for posture and balance. Therapeutic activities to return to functional activities of daily living. Electronically signed by: MAIKOL CROWLEY PT Please sign and return to therapist. Thank you for your referral.
--- NOTE | 2021-11-11 14:33 | MHC.PT.DC ---
[facility] [place] Office [place] Office [place] Office [address] [place] White [address] [phone] F: [phone] F: [phone] F: [phone] F: [phone] Physical Therapy Discharge Report Diagnosis: B KNEE AND ANKLE PAIN Date of Surgery: NA Date of Evaluation: 08/29/21 Date of Discharge: 11/11/21 Treatments to Date: 6 Cancellations to Date: No Shows to Date: Discharge Status: Independent with HEP Patient Elected to Stop Discharge Summary: Pt LAST SEEN 09/21/21. PER ASSESSMENT ON THAT DAY BY KAZ CASSIDY CERTIFIED HISTOLOGIC TECHNICIAN:'Pt Manuel. 4 step ups, calf/ heel raises and GTB hip exercises today demonstrarting improved B LE stability and endurance. Pt reports he performs his HEP with group at home. The group meeting is Sunday.' NEXT SCHEDULED VISIT CANCELLED BECAUSE HE HAD COVID. NO FURTHER APPTS SCHEDULED. WILL DC AT THIS TIME Electronically signed by: MAIKOL CROWLEY PT Please sign and return to therapist. Thank you for your referral.
== END 2021-11-11 14:34 | disposition home or self-care (01) ==
LOC: HO.PT 12:00
PROVIDERS: PCP Internal Medicine; Visit Provider Physician Assistant
DX: M17.0 Bilateral primary osteoarthritis of knee (principal); M19.071 Primary osteoarthritis, right ankle and foot; M19.072 Primary osteoarthritis, left ankle and foot
CPT/HCPCS: 97110; 97162; 97530

== ENCOUNTER 2021-09-22 09:03 | Outpatient (REF) | payer MEDICARE, MEDICAID, SELFPAY ==
[2021-09-22 10:40] LABS: Hematocrit 44.2 % (42.0-52.0); Hemoglobin 14.2 g/dl (14.0-18.0); Mean Corpuscular HGB Conc 32.1 g/dl (31.0-36.0); Mean Corpuscular Hemoglobin 28.4 pg (27.0-33.0); Mean Corpuscular Volume 88.4 fL (80.0-98.0); Mean Platelet Volume 12.6 fL (9.4-12.4); Platelet Count 116 X10*3/uL (160-400); Red Cell Distribution Width 15.2 % (11.0-16.0); White Blood Count 6.3 X10*3/uL (4.8-10.8)
[2021-09-22 11:14] LABS: Prostate Specific Antigen < 0.05 ng/mL (<0.05-4.0)
[2021-09-28 02:51] LABS: Testosterone, Total 261 ng/dL (250-1100)
== END 2021-09-22 09:04 | disposition home or self-care (01) ==
LOC: HO.10HDL 09:03
PROVIDERS: Visit Provider Urology
DX: Z13.89 Encounter for screening for other disorder (principal)
CPT/HCPCS: 36415; 51798; 84153; 84403; 85027

== ENCOUNTER 2021-09-25 07:04 | Inpatient (IN) | payer MEDICARE, MEDICAID, SELFPAY ==
[2021-09-25] VITALS (8 sets, daily range): BP systolic 100–136; BP diastolic 62–74; PULSE 84–110; RESP 18–24; TEMP 36.6–39.1; O2SAT 88–96; BMI 37.2
--- NOTE | ~2021-09-25 | XR_ITS ---
EXAMINATION: XR CHEST CLINICAL INFORMATION: Shortness of breath. Covid positive. COMPARISON: CXR from 07/09/2018 TECHNIQUE: Frontal view of the chest was obtained. FINDINGS: Lungs are hypoexpanded. Patchy airspace opacities scattered throughout both lungs. Findings are consistent with multilobar pneumonia. No pneumothorax or pleural effusion. Cardiac silhouette is in the normal size range. The visualized bones and upper abdomen are unremarkable. XR/XR chest 1V IMPRESSION: Multilobar pneumonia is present. Given history of Covid positivity, this is likely viral/Covid pneumonia.
[2021-09-25] MEDS: Acetaminophen 325 MG TABLET 650 MG PO (07:16)
[2021-09-25 07:28] LABS: COVID-19 Test Positive (Negative)
--- NOTE | 2021-09-25 08:04 | ED_ITS ---
HPI - URI/Sore Throat General Chief Complaint: Upper Respiratory Symptoms Stated Complaint: COUGH,FEVER 100 PER RETIREMENT Time Seen by Provider: 09/25/21 07:59 Source: patient, EMS and RN notes reviewed Mode of arrival: EMS Limitations: other (poor historian) History of Present Illness HPI Narrative: 86-year-old male with a history of COPD, schizoaffective disorder on calls a role, hypertrophic obstructive cardiomyopathy, CAD, HTN, DM, JUDY who presents to the ER via EMS from his retirement with reports of 3 days of cough and fever of 100. He is a poor historian. He reports over this week he has not felt well and has stayed in bed. His breathing is moderately heavy. He reports constipation x1 week and urinary retention for which he is seeing Dr. Cox for. He denies abdominal pain, nausea or vomiting. He denies chest pain. He is unvaccianted for COVID-19. Unknown if anyone at the retirement is positive or not. MD elicited complaint: fever and cough Pertinent past history: COPD Onset (ago): day(s) (3) Consistency: constant Severity: moderate Able to tolerate fluids by mouth: Yes Exacerbating factors: exertion and speaking Relieving factors: rest Associated symptoms: fever, myalgias, headache, cough, shortness of breath and other (constipation) Treatments prior to arrival: none Related Data Home Medications Medication Instructions Recorded Confirmed clozapine 100 mg tablet 200 mg PO DAILY@1900 tab 12/28/20 09/05/21 lorazepam 1 mg tablet 1 mg PO BID PRN 09/25/21 09/25/21 Previous Rx's Medication Instructions Recorded clozapine 25 mg tablet 50 mg PO DAILY@1900 30 Days #60 tab 11/03/20 lurasidone 20 mg tablet (Latuda) 20 mg PO DAILY 30 Days #30 tab 11/03/20 docusate sodium 100 mg capsule 100 mg PO BID@0830,2100 30 Days 03/15/21 #60 cap amlodipine 2.5 mg tablet 2.5 mg PO DAILY #90 tab 06/28/21 albuterol sulfate 90 mcg/actuation 2 puff INHALATION DAILY PRN 30 07/21/21 aerosol inhaler Days #8.5 g aspirin 81 mg chewable tablet 1 tab PO DAILY #30 tab 07/21/21 atorvastatin 20 mg tablet 20 mg PO BEDTIME #30 tab 07/21/21 cholecalciferol (vitamin D3) 25 25 mcg PO DAILY #28 tab 07/21/21 mcg (1,000 unit) tablet hydrochlorothiazide 12.5 mg capsule 12.5 mg PO DAILY #30 cap 07/21/21 metformin 500 mg tablet,extended 500 mg PO QPM #30 tab 07/21/21 release 24 hr nicotine 7 mg/24 hr daily 1 patch TOPICAL DAILY #30 patch 08/16/21 transdermal patch acetaminophen 500 mg tablet 500 mg PO QID PRN 30 Days #120 tab 08/29/21 metoprolol succinate 50 mg 50 mg PO BID #60 tab 08/29/21 tablet,extended release 24 hr polyethylene glycol 3350 17 gram 17 g PO DAILY 30 Days #90 ea 08/29/21 oral powder packet (Miralax) magnesium hydroxide 400 mg/5 mL 5 ml PO BEDTIME PRN #355 ml 08/31/21 oral suspension (Whitten Milk of Magnesia) aluminum-mag hydroxide-simethicone 10 ml PO TID PRN #3000 ml 09/06/21 400 mg-400 mg-40 mg/5 mL oral susp (Mylanta Maximum Strength) testosterone 20.25 mg/1.25 gram 2 pump TOPICAL DAILY 30 Days #75 g 09/07/21 (1.62 %) transdermal gel pump (AndroGel) Allergies Allergy/AdvReac Type Severity Reaction Status Date / Time lithium [[place]] Allergy Severe TOXICITY Verified 09/19/21 11:24 thiothixene Allergy Severe SWELLING Verified 09/19/21 11:24 barium sulfate Allergy Intermediate NAUSEA & Verified 09/19/21 11:24 [BARIUM SULFATE] VOMITING haloperidol Allergy Intermediate MUSCLE Verified 09/19/21 11:24 TENSION IN LEGS benztropine Allergy Unknown benztropine Verified 09/19/21 11:24 mesylate- unknown diphenhydramine Allergy Unknown urinary Verified 09/19/21 11:24 [From Benadryl] retention fluphenazine Allergy Unknown UNKNOWN Verified 09/19/21 11:24 gabapentin [From NEURONTIN] Allergy Unknown UNKNOWN Verified 09/19/21 11:24 prolixen Allergy Unknown Unknown Uncoded 09/05/21 03:17 Review of Systems Review of Systems: Constitutional: + Fever, No Chills ENT/Mouth: No sore throat, No Rhinorrhea, No Swallowing Difficulty Cardiovascular: No Chest Pain, + SOB, No Orthopnea, No Edema Respiratory: + Cough, No Sputum, No Wheezing, No dyspnea Gastrointestinal: No Nausea, No Vomiting, No Diarrhea, No abdominal Pain, No Hematochezia, No Melena, +constipation Genitourinary: No Dysuria, No Urinary Frequency, No Hematuria, +Urinary retention Musculoskeletal: No joint pain, + Myalgias Skin: No Skin Lesions, No rash Neuro: No Weakness, No Numbness, No Dizziness, + Headache Psych: No Anxiety/Panic, No Depression Heme/Lymph: No Bruising, No Lymphadenopathy Endocrine: No Polyuria, No Polydipsia [facility] Past Medical History Medical History Aggression BPH (benign prostatic hyperplasia) Cardiac arrhythmia CHF (congestive heart failure) Constipation COPD (chronic obstructive pulmonary disease) Coronary artery disease Diabetes mellitus Essential hypertension HOCM (hypertrophic obstructive cardiomyopathy) Hypertension Myocardial infarction Obesity (BMI 30-39.9) JUDY (obstructive sleep apnea) Prolonged QT interval Pure hypercholesterolemia Schizoaffective disorder Smoker Surgical History History of intestinal surgery History of transurethral resection of prostate Family History Family History Father Medical history unknown Mother Medical history unknown Sister Alive and well Social History Social History Household Members: Unknown / Unable to assess Housing: Other Housing Other:: Assisted Do you presently have visiting nurse or other home services: Yes Alcohol intake: former Patient Tobacco Use Status: Current everyday Tobacco user Cigarettes Per Day: 7 Second Hand Smoke Exposure: No Use of substances other than those prescribed or required for medical reasons: No Substance Use Type: Unknown Advance Directives: No Advance Directives Information Provided: No service: No Current occupational status: disabled Sexual orientation: Straight/Heterosexual Physical Exam Vital Signs: Vital Signs: Last Vital Signs Temp 100.0 F 09/25/21 09:05 Pulse 92 09/25/21 09:05 Resp 24 H 09/25/21 09:05 BP 128/66 09/25/21 09:05 Pulse Ox 96 09/25/21 09:05 BMI result Body Mass Index 37.2 Appearance: Alert. Oriented X3. No acute distress. Eyes: Pupils equal, round and reactive to light. ENT: Pharynx normal. Neck: Normal inspection. Neck supple. CVS: Tachycardic, regular rhythm. Pulses normal. Respiratory: No respiratory distress. Breath sounds coarse thoughtout Abdomen: Softly distended and nontender. +BS x4 Skin: Skin warm and dry. Normal skin color. Normal skin turgor. No rashes. Extremities: No lower extremity edema. No calf tenderness Neuro/psych: Oriented X 3. No motor deficit. No sensory deficit. Poor historian. Flight of ideas Course Course Course Narrative: 56 y/o male with history of schizoaffective disorder, COPD (not on O2), HOCM, CAD, HTN, DM who presents with fevers and cough. Tmx in the ED 102.3. HR low 100s. SpO2 94 on RA on arrival. Tylenol given. COVID POSITIVE. Will get CXR and labs. When speaking SpO2 91%. Sat up in bed and SpO2 88% and SOB with little exertion. Will require admission. Reevaluation(s) Reevaluation #1: CXR with COVID PNA. DDIMER only 180's, doubt PE. Given Decadron. Fever improving with Tylenol. Reevaluation #2: Labs showing JUHI wth mild hypernatremia. Will give 1L IVF. EKG with chronic ishemic changes, no chest pain at this time. Troponin 70. Doubt NTEMI. Planning for admission. Dr. Boo to admit. MDM - URI/Sore Throat Medical Records Attestation: I reviewed the patient's medical records. Lab Data Attestation: I reviewed the patient's lab results. Result diagrams: 09/25/21 09:01 09/25/21 09:01 Labs: Lab Results 09/25/21 09/25/21 09/25/21 Range/Units 07:13 09:01 09:01 WBC 4.8 (4.8-10.8) X10*3/uL RBC 4.65 (4.60-5.80) X10*6/uL Hgb 13.2 L (14.0-18.0) g/dl Hct 41.0 L (42.0-52.0) % MCV 88.2 (80.0-98.0) fL MCH 28.4 (27.0-33.0) pg MCHC 32.2 (31.0-36.0) g/dl RDW 15.3 (11.0-16.0) % Plt Count 78 L D (160-400) X10*3/uL MPV 12.3 (9.4-12.4) fL Immature Gran % (Auto) 0.2 (0.0-0.4) % Neut % (Auto) 83.4 H (45-73) % Lymph % (Auto) 10.5 L (20-40) % Humphreys % (Auto) 5.9 (2-11) % Eos % (Auto) 0.0 (0-4) % Baso % (Auto) 0.0 (0-2) % Lymph # (Auto) 0.5 L (1.2-4.9) X10*3/uL Humphreys # (Auto) 0.3 (0.1-1.2) X10*3/uL Eos # (Auto) 0.0 (0.0-0.4) X10*3/uL Baso # (Auto) 0.0 (0.0-0.2) X10*3/uL Abs Immat Gran (auto) 0.01 (0.00-0.03) X10*3/uL Absolute Neuts (auto) 4.0 (2.0-8.3) x10*3/uL Absolute Nucleated RBC 0.000 (0.0-0.012) X10*3/uL Nucleated RBC % (auto) 0.0 (0.0-0.2) /100WBC D-Dimer High Sensitivty NG/ML Sodium 148 H (135-145) mmol/L Potassium 3.6 (3.3-5.1) mmol/L Chloride 109 H (96-108) mmol/L Carbon Dioxide 27 (22-29) mmol/L Anion Gap 16 (12-20) BUN 33 H (9-16) mg/dL Creatinine 1.93 H (0.5-1.4) mg/dL Estim Creat Clear Calc 51.0 Estimated GFR 36 Random Glucose 167 H (60-115) mg/dL Lactic Acid (0.5-2.0) mmol/L Calcium 8.6 D (8.4-10.2) mg/dL Magnesium 2.2 (1.6-2.6) mg/dL Total Bilirubin 0.6 (0.0-1.0) mg/dL Direct Bilirubin 0.2 (0.0-0.5) mg/dL AST 33 (5-37) U/L ALT 29 (0-40) U/L Alkaline Phosphatase 52 D (39-117) U/L Lactate Dehydrogenase 398 H (118-273) U/L Total Creatine Kinase 358 H (38-174) U/L Troponin I High Sens (<3.5-35.0) ng/L C-Reactive Protein 9.04 H (< or = 0.50) mg/dL Total Protein 6.7 (6.5-8.0) g/dL Albumin 4.0 (3.5-5.0) g/dL Procalcitonin ng/mL COVID-19 (DARRIUS) Positive A (Negative) COVID-19 Clin Com See Note 09/25/21 09/25/21 09/25/21 Range/Units 09:01 09:01 09:01 WBC (4.8-10.8) X10*3/uL RBC (4.60-5.80) X10*6/uL Hgb (14.0-18.0) g/dl Hct (42.0-52.0) % MCV (80.0-98.0) fL MCH (27.0-33.0) pg MCHC (31.0-36.0) g/dl RDW (11.0-16.0) % Plt Count (160-400) X10*3/uL MPV (9.4-12.4) fL Immature Gran % (Auto) (0.0-0.4) % Neut % (Auto) (45-73) % Lymph % (Auto) (20-40) % Humphreys % (Auto) (2-11) % Eos % (Auto) (0-4) % Baso % (Auto) (0-2) % Lymph # (Auto) (1.2-4.9) X10*3/uL Humphreys # (Auto) (0.1-1.2) X10*3/uL Eos # (Auto) (0.0-0.4) X10*3/uL Baso # (Auto) (0.0-0.2) X10*3/uL Abs Immat Gran (auto) (0.00-0.03) X10*3/uL Absolute Neuts (auto) (2.0-8.3) x10*3/uL Absolute Nucleated RBC (0.0-0.012) X10*3/uL Nucleated RBC % (auto) (0.0-0.2) /100WBC D-Dimer High Sensitivty 167 NG/ML Sodium (135-145) mmol/L Potassium (3.3-5.1) mmol/L Chloride (96-108) mmol/L Carbon Dioxide (22-29) mmol/L Anion Gap (12-20) BUN (9-16) mg/dL Creatinine (0.5-1.4) mg/dL Estim Creat Clear Calc Estimated GFR Random Glucose (60-115) mg/dL Lactic Acid (0.5-2.0) mmol/L Calcium (8.4-10.2) mg/dL Magnesium (1.6-2.6) mg/dL Total Bilirubin (0.0-1.0) mg/dL Direct Bilirubin (0.0-0.5) mg/dL AST (5-37) U/L ALT (0-40) U/L Alkaline Phosphatase (39-117) U/L Lactate Dehydrogenase (118-273) U/L Total Creatine Kinase (38-174) U/L Troponin I High Sens 70.9 H (<3.5-35.0) ng/L C-Reactive Protein (< or = 0.50) mg/dL Total Protein (6.5-8.0) g/dL Albumin (3.5-5.0) g/dL Procalcitonin 0.45 ng/mL COVID-19 ([facility]RIUS) (Negative) COVID-19 Clin Com 09/25/21 Range/Units 09:01 WBC (4.8-10.8) X10*3/uL RBC (4.60-5.80) X10*6/uL Hgb (14.0-18.0) g/dl Hct (42.0-52.0) % MCV (80.0-98.0) fL MCH (27.0-33.0) pg MCHC (31.0-36.0) g/dl RDW (11.0-16.0) % Plt Count (160-400) X10*3/uL MPV (9.4-12.4) fL Immature Gran % (Auto) (0.0-0.4) % Neut % (Auto) (45-73) % Lymph % (Auto) (20-40) % Humphreys % (Auto) (2-11) % Eos % (Auto) (0-4) % Baso % (Auto) (0-2) % Lymph # (Auto) (1.2-4.9) X10*3/uL Humphreys # (Auto) (0.1-1.2) X10*3/uL Eos # (Auto) (0.0-0.4) X10*3/uL Baso # (Auto) (0.0-0.2) X10*3/uL Abs Immat Gran (auto) (0.00-0.03) X10*3/uL Absolute Neuts (auto) (2.0-8.3) x10*3/uL Absolute Nucleated RBC (0.0-0.012) X10*3/uL Nucleated RBC % (auto) (0.0-0.2) /100WBC D-Dimer High Sensitivty NG/ML Sodium (135-145) mmol/L Potassium (3.3-5.1) mmol/L Chloride (96-108) mmol/L Carbon Dioxide (22-29) mmol/L Anion Gap (12-20) BUN (9-16) mg/dL Creatinine (0.5-1.4) mg/dL Estim Creat Clear Calc Estimated GFR Random Glucose (60-115) mg/dL Lactic Acid 1.4 (0.5-2.0) mmol/L Calcium (8.4-10.2) mg/dL Magnesium (1.6-2.6) mg/dL Total Bilirubin (0.0-1.0) mg/dL Direct Bilirubin (0.0-0.5) mg/dL AST (5-37) U/L ALT (0-40) U/L Alkaline Phosphatase (39-117) U/L Lactate Dehydrogenase (118-273) U/L Total Creatine Kinase (38-174) U/L Troponin I High Sens (<3.5-35.0) ng/L C-Reactive Protein (< or = 0.50) mg/dL Total Protein (6.5-8.0) g/dL Albumin (3.5-5.0) g/dL Procalcitonin ng/mL COVID-19 ([facility]RIUS) (Negative) COVID-19 Clin Com ECG Data Attestation: I personally reviewed and interpreted this ECG as follows: ECG interpretation date: 09/25/21 ECG interpretation time: 10:35 Prior ECG tracings: available for review Interpretation: normal sinus rhythm, HR 86 bpm, LVH, prolonged QTc 528,deep t- wave inversions in V4-V6 old, t-wave inversions in leads I & II with ?1mm ST depressions, unchanged from prior Critical Care Time Critical Care Time Critical Care Time: Yes Total Critical Care Time: 36 Attestation: I have personally provided critical care time exclusive of time spent on separately billable procedures. Time includes review of lab data, radiology results, discussion with consultants/hospitalist, and monitoring for potential decompensation. Intervention performed as documented. Discharge Plan Discharge Clinical Impression: COVID-19, Hypoxia, JUHI (acute kidney injury) Patient Disposition: Admitted As Inpatient
--- NOTE | 2021-09-25 08:36 | ECG_ITS ---
Test Reason : SOB Blood Pressure : / mmHG Vent. Rate : 086 BPM Atrial Rate : 086 BPM P-R Int : 156 ms QRS Dur : 104 ms QT Int : 442 ms P-R-T Axes : 095 022 150 degrees QTc Int : 528 ms Normal sinus rhythm Left ventricular hypertrophy with repolarization abnormality Prolonged QT Abnormal ECG When compared with ECG of 02-NOV-2020 09:46, Nonspecific T wave abnormality has replaced inverted T waves in Inferior leads Referred By: Veronica Fuentes Electronically Signed By:BRYSON MAURO
[2021-09-25 09:07] LABS: MANUAL DIFF FLAG NO
[2021-09-25] MEDS: dexAMETHasone sod phosphate 10 MG/ML VIAL IVPUSH (09:07)
[2021-09-25 09:10] LABS: Hemoglobin 13.2 g/dl (14.0-18.0); Imm Gran Abs Auto 0.01 X10*3/uL (0.00-0.03); Imm Gran Pct Auto 0.2 % (0.0-0.4); Lymphocytes Absolute Auto 0.5 X10*3/uL (1.2-4.9); Lymphocytes Percent Auto 10.5 % (20-40); Mean Corpuscular HGB Conc 32.2 g/dl (31.0-36.0); Mean Corpuscular Hemoglobin 28.4 pg (27.0-33.0); Mean Corpuscular Volume 88.2 fL (80.0-98.0); Monocytes Absolute Auto 0.3 X10*3/uL (0.1-1.2); Monocytes Percent Auto 5.9 % (2-11); Neutrophils Percent Auto 83.4 % (45-73); Red Blood Count 4.65 X10*6/uL (4.60-5.80); Red Cell Distribution Width 15.3 % (11.0-16.0); White Blood Count 4.8 X10*3/uL (4.8-10.8)
[2021-09-25 09:19] LABS: Lactic Acid 1.4 mmol/L (0.5-2.0)
[2021-09-25 09:21] LABS: D Dimer High Sensitivity 167 NG/ML
[2021-09-25 09:24] LABS: Alanine Aminotransferase 29 U/L (0-40); Alkaline Phosphatase 52 U/L (39-117); Anion Gap 16 (12-20); Aspartate Amino Transferase 33 U/L (5-37); Bilirubin Direct 0.2 mg/dL (0.0-0.5); Bilirubin Total 0.6 mg/dL (0.0-1.0); Blood Urea Nitrogen 33 mg/dL (9-16); C Reactive Protein 9.04 mg/dL (< or = 0.50); Calcium 8.6 mg/dL (8.4-10.2); Carbon Dioxide 27 mmol/L (22-29); Chloride 109 mmol/L (96-108); Estimated Glomerular Filt Rate 36; Glucose Random 167 mg/dL (60-115); Lactate Dehydrogenase 398 U/L (118-273); Magnesium 2.2 mg/dL (1.6-2.6); Potassium 3.6 mmol/L (3.3-5.1); Sodium 148 mmol/L (135-145); Total Protein 6.7 g/dL (6.5-8.0)
[2021-09-25 09:27] LABS: Troponin-I High Sensitivity 70.9 ng/L (<3.5-35.0)
[2021-09-25 09:32] LABS: Mean Platelet Volume 12.3 fL (9.4-12.4); Platelet Count 78 X10*3/uL (160-400)
[2021-09-25 09:41] LABS: Procalcitonin 0.45 ng/mL
[2021-09-25] MEDS: Ibuprofen 600 MG TABLET PO (10:40)
[2021-09-25] MEDS: 0.9 % Sodium Chloride 1,000 ML 999 ML IVCONT (10:40)
--- NOTE | 2021-09-25 10:41 | PHA.MEDREC ---
Pharmacy Consult ? Medication Reconciliation Pharmacy has completed the medication reconciliation. Based the med rec off of detention list, providers office note, and outpatient pharmacy fill history. Veronica Ling, PharmD
[2021-09-25 10:50] LABS: Ferritin 673 ng/mL (20-250)
[2021-09-25 11:45] LABS: Estimated Average Glucose 154 mg/dL
[2021-09-25 12:22] LABS: Glucose, Whole Blood 188 mg/dL (60-115)
[2021-09-25] MEDS: Enoxaparin Sodium 40 MG/0.4 ML SYRINGE SUBCUT (12:41)
[2021-09-25] MEDS: Insulin Lispro 100 UNIT/ML 3 ML VIAL SUBCUT ×3 (12:41→20:14)
[2021-09-25 12:44] LABS: Troponin-I High Sensitivity 66.9 ng/L (<3.5-35.0)
--- NOTE | 2021-09-25 14:51 | PM.IMHP ---
History of Present Illness Date of Service: 09/25/21 Chief Complaint: cough and fever 56 year-old man with schizoaffective disorder, HOCM, COPD, JUDY, CAD, HTN, and DM2 who resides at a longterm, from where he was sent to the ER via EMS for 3 days of worsening dry cough and fever to 100. I note in the EHR that he saw his retail assistant manager, Dr Little, 6 days ago, and was reporting dyspnea then. His main complaints, however, are constipation and urinary retention. No chest pain. No nausea or vomiting. Endorses diffuse myalgias. He was not vaccinated against Covid-19. In the ED, he was febrile to 102.3 and tachycardic to 98. He was hypoxic, saturating 88% on room air. CXR showed multilobar pneumonia. He had a normal lactate of 1.4. Creatinine was elevated to 1.96 from a baseline of around 1. Platelet count was 78. He tested positive for Covid-19 via [facility]. Other labs of note: sodium 148, ferritin 673, LDH 398, hs-Tn-I 70.9 [66.9 at 3-hr repeat], CRP 9.04, PCT 0.45. Review of Systems Review of Systems: Yes all other systems are reviewed and are negative [facility] Medical History Aggression BPH (benign prostatic hyperplasia) Cardiac arrhythmia CHF (congestive heart failure) Constipation COPD (chronic obstructive pulmonary disease) Coronary artery disease Diabetes mellitus Essential hypertension HOCM (hypertrophic obstructive cardiomyopathy) Hypertension Myocardial infarction Obesity (BMI 30-39.9) JUDY (obstructive sleep apnea) Prolonged QT interval Pure hypercholesterolemia Schizoaffective disorder Smoker Family History Father Medical history unknown Mother Medical history unknown Sister Alive and well Surgical History History of intestinal surgery History of transurethral resection of prostate Social History Household Members: Unknown / Unable to assess Housing: Other Housing Other:: [facility] Do you presently have visiting nurse or other home services: Yes Alcohol intake: former Patient Tobacco Use Status: Current everyday Tobacco user Cigarettes Per Day: 7 Second Hand Smoke Exposure: No Use of substances other than those prescribed or required for medical reasons: No Substance Use Type: Unknown Advance Directives: No Advance Directives Information Provided: No service: No Current occupational status: disabled Sexual orientation: Straight/Heterosexual Meds Allergies Allergy/AdvReac Type Severity Reaction Status Date / Time lithium [[place]] Allergy Severe TOXICITY Verified 09/19/21 11:24 thiothixene Allergy Severe SWELLING Verified 09/19/21 11:24 barium sulfate Allergy Intermediate NAUSEA & Verified 09/19/21 11:24 [BARIUM SULFATE] VOMITING haloperidol Allergy Intermediate MUSCLE Verified 09/19/21 11:24 TENSION IN LEGS benztropine Allergy Unknown benztropine Verified 09/19/21 11:24 mesylate- unknown diphenhydramine Allergy Unknown urinary Verified 09/19/21 11:24 [From Benadryl] retention fluphenazine Allergy Unknown UNKNOWN Verified 09/19/21 11:24 gabapentin [From NEURONTIN] Allergy Unknown UNKNOWN Verified 09/19/21 11:24 prolixen Allergy Unknown Unknown Uncoded 09/05/21 03:17 Active Medications: Current Medications Acetaminophen (Acetaminophen 325 Mg Tablet) 650 mg PO Q6H PRN PRN Reason: Pain, Mild (Pain Scale 1-3) Albuterol Sulfate (Albuterol Sulfate 90 Mcg 8 Gm Inhaler) 4 puff INHALE Q4H PRN PRN Reason: asthma Amlodipine Besylate (Amlodipine Besylate 2.5 Mg Tablet) 2.5 mg PO DAILY COUNTS INCLUDE 234 BEDS AT THE [facility]; Protocol Aspirin (Aspirin 81 Mg Tab.Chew) 81 mg PO DAILY COUNTS INCLUDE 234 BEDS AT THE [facility] Atorvastatin Calcium (Atorvastatin Calcium 20 Mg Tablet) 20 mg PO BEDTIME COUNTS INCLUDE 234 BEDS AT THE [facility] Clozapine (Clozapine 100 Mg Tablet) 200 mg PO DAILY@1900 COUNTS INCLUDE 234 BEDS AT THE [facility] Clozapine (Clozapine 25 Mg Tablet) 50 mg PO DAILY@1900 COUNTS INCLUDE 234 BEDS AT THE [facility] Dexamethasone Sodium Phosphate (Dexamethasone Sod Phosphate 4 Mg/Ml Vial) 6 mg IVPUSH DAILY COUNTS INCLUDE 234 BEDS AT THE [facility] Stop: 10/04/21 09:01 Dextrose (Dextrose 50 % 25 Gm/50 Ml Vial) 25 gm IVPUSH Q15M PRN; Protocol PRN Reason: per Hypoglycemia Standing Ord. Docusate Sodium (Docusate Sodium 100 Mg Capsule) 100 mg PO BID@0830,2100 COUNTS INCLUDE 234 BEDS AT THE [facility] Enoxaparin Sodium (Enoxaparin Sodium 40 Mg/0.4 Ml Syringe) 40 mg SUBCUT Q24H COUNTS INCLUDE 234 BEDS AT THE [facility] Last Admin: 09/25/21 12:41 Dose: 40 mg Documented by: Glucose (Glucose Gel 15 Gm Gel..Gram.) 15 gm PO Q15M PRN; Protocol PRN Reason: per Hypoglycemia Standing Ord. Insulin Human Lispro (Insulin Lispro 100 Unit/Ml 3 Ml Vial) 0 unit SUBCUT QIDACHS COUNTS INCLUDE 234 BEDS AT THE [facility]; Protocol Last Admin: 09/25/21 12:41 Dose: 2 unit Documented by: Lorazepam (Lorazepam 1 Mg Tablet) 1 mg PO BID PRN PRN Reason: Agitation Lurasidone HCl (Lurasidone Hcl 20 Mg Tablet) 20 mg PO DAILY COUNTS INCLUDE 234 BEDS AT THE [facility] Metoprolol Succinate (Metoprolol Succinate Er 50 Mg Tab.Er.24h) 50 mg PO BID COUNTS INCLUDE 234 BEDS AT THE [facility]; Protocol Nicotine (Nicotine 7 Mg Patch.Td24) 7 mg TRANSDERMA DAILY COUNTS INCLUDE 234 BEDS AT THE [facility] Ondansetron HCl (Ondansetron Hcl 4 Mg/2 Ml Vial) 4 mg IVPUSH Q8H PRN PRN Reason: Nausea and Vomiting Pharmacy Consult (Consult Rx Perform Med Rec) 1 each MISCELLANE ONCE PRN PRN Reason: Consult order Sodium Chloride (0.9 % Sodium Chloride Flush 3 Ml Syringe) 3 ml IVFLUSH QSHIFT COUNTS INCLUDE 234 BEDS AT THE [facility] Vitamin D (Cholecalciferol (Vitamin D3) 25 Mcg Tablet) 25 mcg PO DAILY COUNTS INCLUDE 234 BEDS AT THE [facility] Home Medications Medication Instructions Recorded Confirmed Last Taken Type clozapine 100 mg tablet 200 mg PO DAILY@1900 tab 12/28/20 09/25/21 Unknown History lorazepam 1 mg tablet 1 mg PO BID PRN 09/25/21 09/25/21 Unknown History Physical Exam Vital Signs and Narrative: Vital Signs: Last Vital Signs Temp 98.1 F 09/25/21 12:40 Pulse 84 09/25/21 12:40 Resp 24 H 09/25/21 12:40 BP 109/62 09/25/21 12:40 Pulse Ox 95 09/25/21 12:40 BMI result Body Mass Index 37.2 Gen: tachypneic, on 2L O2 via [place] HEENT: sclera anicteric, moist mucus membranes Neck: supple Lungs: clear to auscultation bilaterally Heart: regular rate and rhythm, no murmurs Abd: soft, non-tender, non-distended Ext: no edema Skin: warm/well-perfused Neuro: alert and oriented x3, no focal findings Psych: impaired insight Results Labs CBC and Chem 7: 09/25/21 09:01 09/25/21 09:01 Labs: Laboratory Results - last 24 hr 09/25/21 09/25/21 09/25/21 07:13 09:01 09:01 MCV 88.2 MCH 28.4 MCHC 32.2 RDW 15.3 Plt Count 78 L D MPV 12.3 Immature Gran % (Auto) 0.2 Neut % (Auto) 83.4 H Lymph % (Auto) 10.5 L Harmon % (Auto) 5.9 Eos % (Auto) 0.0 Baso % (Auto) 0.0 Lymph # (Auto) 0.5 L Harmon # (Auto) 0.3 Eos # (Auto) 0.0 Baso # (Auto) 0.0 Abs Immat Gran (auto) 0.01 Absolute Neuts (auto) 4.0 Absolute Nucleated RBC 0.000 Nucleated RBC % (auto) 0.0 D-Dimer High Sensitivty Anion Gap 16 Estim Creat Clear Calc 51.0 Estimated GFR 36 POC Glucose Random Glucose 167 H Estimat Average Glucose Hemoglobin A1c % Lactic Acid Calcium 8.6 D Magnesium 2.2 Ferritin 673 H Total Bilirubin 0.6 Direct Bilirubin 0.2 AST 33 ALT 29 Alkaline Phosphatase 52 D Lactate Dehydrogenase 398 H Total Creatine Kinase 358 H Troponin I High Sens C-Reactive Protein 9.04 H Total Protein 6.7 Albumin 4.0 Procalcitonin COVID-19 ([facility]) Positive A COVID-19 [employer] See Note 09/25/21 09/25/21 09/25/21 09:01 09:01 09:01 MCV MCH MCHC RDW Plt Count MPV Immature Gran % (Auto) Neut % (Auto) Lymph % (Auto) Harmon % (Auto) Eos % (Auto) Baso % (Auto) Lymph # (Auto) Harmon # (Auto) Eos # (Auto) Baso # (Auto) Abs Immat Gran (auto) Absolute Neuts (auto) Absolute Nucleated RBC Nucleated RBC % (auto) D-Dimer High Sensitivty 167 Anion Gap Estim Creat Clear Calc Estimated GFR POC Glucose Random Glucose Estimat Average Glucose Hemoglobin A1c % Lactic Acid Calcium Magnesium Ferritin Total Bilirubin Direct Bilirubin AST ALT Alkaline Phosphatase Lactate Dehydrogenase Total Creatine Kinase Troponin I High Sens 70.9 H C-Reactive Protein Total Protein Albumin Procalcitonin 0.45 COVID-19 ([facility]) COVID-19 [employer] Com 09/25/21 09/25/21 09/25/21 09:01 09:01 12:01 MCV MCH MCHC RDW Plt Count MPV Immature Gran % (Auto) Neut % (Auto) Lymph % (Auto) Harmon % (Auto) Eos % (Auto) Baso % (Auto) Lymph # (Auto) Harmon # (Auto) Eos # (Auto) Baso # (Auto) Abs Immat Gran (auto) Absolute Neuts (auto) Absolute Nucleated RBC Nucleated RBC % (auto) D-Dimer High Sensitivty Anion Gap Estim Creat Clear Calc Estimated GFR POC Glucose Random Glucose Estimat Average Glucose 154 Hemoglobin A1c % 7.0 Lactic Acid 1.4 Calcium Magnesium Ferritin Total Bilirubin Direct Bilirubin AST ALT Alkaline Phosphatase Lactate Dehydrogenase Total Creatine Kinase Troponin I High Sens 66.9 H C-Reactive Protein Total Protein Albumin Procalcitonin COVID-19 ([facility]) COVID-19 Clin Com 09/25/21 12:18 MCV MCH MCHC RDW Plt Count MPV Immature Gran % (Auto) Neut % (Auto) Lymph % (Auto) Harmon % (Auto) Eos % (Auto) Baso % (Auto) Lymph # (Auto) Harmon # (Auto) Eos # (Auto) Baso # (Auto) Abs Immat Gran (auto) Absolute Neuts (auto) Absolute Nucleated RBC Nucleated RBC % (auto) D-Dimer High Sensitivty Anion Gap Estim Creat Clear Calc Estimated GFR POC Glucose 188 H Random Glucose Estimat Average Glucose Hemoglobin A1c % Lactic Acid Calcium Magnesium Ferritin Total Bilirubin Direct Bilirubin AST ALT Alkaline Phosphatase Lactate Dehydrogenase Total Creatine Kinase Troponin I High Sens C-Reactive Protein Total Protein Albumin Procalcitonin COVID-19 ([facility]) COVID-19 Clin Com Imaging Radiologist's Impressions: Impressions Chest X-Ray 09/25/21 08:10 IMPRESSION: Multilobar pneumonia is present. Given history of Covid positivity, this is likely viral/Covid pneumonia. Assessment and Plan (1) COVID-19: Status: Acute (2) Hypoxia: Status: Acute 56 year-old male longterm resident with schizoaffective disorder, HOCM, COPD, JUDY, CAD, HTN, and DM2 presenting with at least 3 days of cough, fever, and dyspnea. Found to be septic and hypoxic from Covid-19 pneumonia. # Covid-19 pneumonia # viral sepsis # COPD exacerbation - admit to IMC/[facility], dexamethasone 6 mg/d x10d, ID consult, trend inflammatory markers - prn albuterol HFA # acute hypoxic respiratory failure - supplemental O2, wean as tolerated, encourage awake proning # JUHI # hypernatremia - prerenal, hold HCTZ, will give IV normal saline, avoid nephrotoxins, recheck BMP in am # Tn-I elevation - anterior ST elevations due to HOCM with secondary repolarization abnormality; Tn-I flat; likely due to JUHI + sepsis # thrombocytopenia - suspect due to viral sepsis, monitor CBC # QT prolongation, chronic - monitor, keep K>4 + Mg >2 # CAD - continue statin, ASA, metoprolol succinate # HTN - continue amlodipine, metoprolol succinate; hold HCTZ # DM2 - correction-dose lispro; A1c 7; hold MTF # tobacco abuse - continue LMWH # schizoaffective disorder - continue clozapine, lurasidone, lorazepam # VTE ppx - LMWH # code - full Quality Stroke Does the patient have a stroke diagnosis?: No VTE Prior VTE?: No VTE Risk Level:: Medical - moderate - high VTE Device Contraindication: N/A - Device Ordered VTE Drug Contraindication: N/A - Med Ordered
[2021-09-25] MEDS: Potassium Chloride ER 20 MEQ TAB.ER.PRT 40 MEQ PO (15:35)
[2021-09-25] MEDS: 0.9 % Sodium Chloride 1,000 ML 100 ML IVCONT (15:35)
[2021-09-25 17:37] LABS: Glucose, Whole Blood 360 mg/dL (60-115)
--- NOTE | 2021-09-25 19:23 | PC.NURSE ---
report given to elias perez on im[facility]
[2021-09-25] MEDS: cloZAPine 100 MG TABLET 200 MG PO (20:02)
[2021-09-25] MEDS: Sennosides/Docusate Sodium TABLET 2 TAB PO (20:03)
[2021-09-25] MEDS: cloZAPine 25 MG TABLET 50 MG PO (20:03)
[2021-09-25] MEDS: Atorvastatin Calcium 20 MG TABLET PO (20:03)
[2021-09-25 20:04] LABS: Glucose, Whole Blood 221 mg/dL (60-115)
[2021-09-25] MEDS: Metoprolol Succinate ER 50 MG TAB.ER.24H PO (20:15)
--- NOTE | 2021-09-25 21:28 | ECG_ITS ---
Test Reason : rhythm change Blood Pressure : / mmHG Vent. Rate : 103 BPM Atrial Rate : 103 BPM P-R Int : 150 ms QRS Dur : 102 ms QT Int : 370 ms P-R-T Axes : 037 028 161 degrees QTc Int : 484 ms Sinus tachycardia Left ventricular hypertrophy with repolarization abnormality Abnormal ECG When compared to the previous EKG of same day, ST depression less prominent Referred By: Juan Boo Electronically Signed By:BRYSON MAURO
[2021-09-26] VITALS (8 sets, daily range): BP systolic 108–158; BP diastolic 59–94; PULSE 74–111; RESP 16–23; TEMP 36.2–38.7; O2SAT 92–96
[2021-09-26] MEDS: 0.9 % Sodium Chloride Flush 3 ML SYRINGE IVFLUSH ×4 (00:03→19:49)
[2021-09-26] MEDS: LORazepam 1 MG TABLET PO ×2 (00:03→21:16)
[2021-09-26 06:55] LABS: Anion Gap 15 (12-20); Blood Urea Nitrogen 42 mg/dL (9-16); Calcium 8.4 mg/dL (8.4-10.2); Carbon Dioxide 23 mmol/L (22-29); Chloride 109 mmol/L (96-108); Creatinine Clr Calc Pharmacy 60.8; Estimated Glomerular Filt Rate 44; Glucose Random 302 mg/dL (60-115); Potassium 3.9 mmol/L (3.3-5.1); Sodium 143 mmol/L (135-145)
[2021-09-26 08:03] LABS: Glucose, Whole Blood 233 mg/dL (60-115)
[2021-09-26] MEDS: Nicotine 7 MG PATCH.TD24 TRANSDERMA (08:34)
[2021-09-26] MEDS: Insulin Lispro 100 UNIT/ML 3 ML VIAL SUBCUT ×4 (08:34→21:16)
[2021-09-26] MEDS: Sennosides/Docusate Sodium TABLET 2 TAB PO ×2 (08:35→19:48)
[2021-09-26] MEDS: Aspirin 81 MG TAB.CHEW PO (08:35)
[2021-09-26] MEDS: dexAMETHasone sod phosphate 4 MG/ML VIAL 6 MG IVPUSH (08:35)
[2021-09-26] MEDS: Cholecalciferol (Vitamin D3) 25 MCG TABLET PO (08:36)
[2021-09-26] MEDS: polyethylene glycoL 3350 17 GM POWD.PACK PO (08:36)
[2021-09-26] MEDS: amLODIPine Besylate 2.5 MG TABLET PO (08:36)
[2021-09-26] MEDS: Lurasidone HCl 20 MG TABLET PO (08:36)
[2021-09-26] MEDS: Metoprolol Succinate ER 50 MG TAB.ER.24H PO ×2 (08:36→19:48)
--- NOTE | 2021-09-26 09:00 | MHC.CM.PN ---
Patient is documented to have impaired insight; CM spoke with Brother/HCP/Nigel at [phone] and addressed IMM with him(original will be mailed out certified letter to Nigel and and a copy has been placed on the chart).Patient lives in a [facility] and the goal for dc is for Patient to return there. CM has initiated and will follow for dc planning. PCP is Dr. Regan Wang.
[2021-09-26 10:12] LABS: Hematocrit 38.3 % (42.0-52.0); Mean Corpuscular HGB Conc 31.3 g/dl (31.0-36.0); Mean Corpuscular Volume 89.3 fL (80.0-98.0); Mean Platelet Volume 14.2 fL (9.4-12.4); Red Blood Count 4.29 X10*6/uL (4.60-5.80); Red Cell Distribution Width 15.2 % (11.0-16.0); White Blood Count 5.7 X10*3/uL (4.8-10.8)
[2021-09-26 10:13] LABS: PLT ABN DIST 1; Platelet Count 84 X10*3/uL (160-400)
[2021-09-26 11:39] LABS: Glucose, Whole Blood 240 mg/dL (60-115)
--- NOTE | 2021-09-26 13:36 | P.PNIM_ITS ---
Subjective Subjective Date of Service: 09/26/21 Interval History: Denies fever, shortness of breath, no acute issues overnight, oxygenation stable on 2 L , lab reported 1/2 blood culture positive for gram- positive cocci Review of Systems Review of Systems: Yes all other systems are reviewed and are negative Physical Exam Vital Signs: Vital Signs: Last Vital Signs Temp 99.1 F 09/26/21 11:24 Pulse 97 09/26/21 11:24 Resp 20 09/26/21 11:24 BP 142/79 H 09/26/21 11:24 Pulse Ox 96 09/26/21 11:24 BMI result Body Mass Index 37.2 Gen: tachypneic, on 2L O2 via [place] Neck: supple, no JVD Lungs: clear to auscultation bilaterally no rhonchi Heart: regular rate and rhythm, no murmurs Abd: soft, non-tender, non-distended, bowel sounds audible Ext: no edema Skin: warm/well-perfused Neuro: alert and oriented x3, no focal findings Psych: impaired insight ? Objective Data Active Medications Acetaminophen (Acetaminophen 325 Mg Tablet) 650 mg PO Q6H PRN PRN Reason: Pain, Mild (Pain Scale 1-3) Albuterol Sulfate (Albuterol Sulfate 90 Mcg 8 Gm Inhaler) 4 puff INHALE Q4H PRN PRN Reason: asthma Amlodipine Besylate (Amlodipine Besylate 2.5 Mg Tablet) 2.5 mg PO DAILY [facility]; Protocol Last Admin: 09/26/21 08:36 Dose: 2.5 mg Documented by: KATARINA Aspirin (Aspirin 81 Mg Tab.Chew) 81 mg PO DAILY [facility] Last Admin: 09/26/21 08:35 Dose: 81 mg Documented by: KATARINA Atorvastatin Calcium (Atorvastatin Calcium 20 Mg Tablet) 20 mg PO BEDTIME [facility] Last Admin: 09/25/21 20:03 Dose: 20 mg Documented by: DAREK Clozapine (Clozapine 100 Mg Tablet) 200 mg PO DAILY@1900 [facility] Last Admin: 09/25/21 20:02 Dose: 200 mg Documented by: DAREK Clozapine (Clozapine 25 Mg Tablet) 50 mg PO DAILY@1900 [facility] Last Admin: 09/25/21 20:03 Dose: 50 mg Documented by: DAREK Dexamethasone Sodium Phosphate (Dexamethasone Sod Phosphate 4 Mg/Ml Vial) 6 mg IVPUSH DAILY [facility] Stop: 10/04/21 09:01 Last Admin: 09/26/21 08:35 Dose: 6 mg Documented by: KATARINA Dextrose (Dextrose 50 % 25 Gm/50 Ml Vial) 25 gm IVPUSH Q15M PRN; Protocol PRN Reason: per Hypoglycemia Standing Ord. Enoxaparin Sodium (Enoxaparin Sodium 40 Mg/0.4 Ml Syringe) 40 mg SUBCUT Q24H [facility] Last Admin: 09/25/21 12:41 Dose: 40 mg Documented by: LILIBETH Glucose (Glucose Gel 15 Gm Gel..Gram.) 15 gm PO Q15M PRN; Protocol PRN Reason: per Hypoglycemia Standing Ord. Insulin Human Lispro (Insulin Lispro 100 Unit/Ml 3 Ml Vial) 0 unit SUBCUT QIDACHS [facility]; Protocol Last Admin: 09/26/21 12:38 Dose: 4 unit Documented by: KATARINA Lorazepam (Lorazepam 1 Mg Tablet) 1 mg PO BID PRN PRN Reason: Agitation Last Admin: 09/26/21 00:03 Dose: 1 mg Documented by: KEIRY Lurasidone HCl (Lurasidone Hcl 20 Mg Tablet) 20 mg PO DAILY [facility] Last Admin: 09/26/21 08:36 Dose: 20 mg Documented by: KATARINA Metoprolol Succinate (Metoprolol Succinate Er 50 Mg Tab.Er.24h) 50 mg PO BID [facility]; Protocol Last Admin: 09/26/21 08:36 Dose: 50 mg Documented by: KATARINA Nicotine (Nicotine 7 Mg Patch.Td24) 7 mg TRANSDERMA DAILY [facility] Last Admin: 09/26/21 08:34 Dose: 7 mg Documented by: KATARINA Ondansetron HCl (Ondansetron Hcl 4 Mg/2 Ml Vial) 4 mg IVPUSH Q8H PRN PRN Reason: Nausea and Vomiting Pharmacy Consult (Consult Rx Perform Med Rec) 1 each MISCELLANE ONCE PRN PRN Reason: Consult order Polyethylene Glycol (Polyethylene Glycol 3350 17 Gm Powd.Pack) 17 gm PO DAILY [facility] Last Admin: 09/26/21 08:36 Dose: 17 gm Documented by: KATARINA Senna/Docusate Sodium (Sennosides/Docusate Sodium Tablet) 2 tab PO BID [facility] Last Admin: 09/26/21 08:35 Dose: 2 tab Documented by: KATARINA Sodium Chloride (0.9 % Sodium Chloride Flush 3 Ml Syringe) 3 ml IVFLUSH QSHIFT [facility] Last Admin: 09/26/21 08:33 Dose: 3 ml Documented by: KATARINA Vitamin D (Cholecalciferol (Vitamin D3) 25 Mcg Tablet) 25 mcg PO DAILY [facility] Last Admin: 09/26/21 08:36 Dose: 25 mcg Documented by: KATARINA Labs CBC & Chem 7: 09/26/21 06:14 09/26/21 06:14 Labs: Laboratory Results - last 24 hr 09/25/21 09/25/21 09/26/21 17:28 19:59 06:14 MCV 89.3 MCH 28.0 MCHC 31.3 RDW 15.2 Plt Count 84 L MPV 14.2 H Absolute Nucleated RBC 0.000 Nucleated RBC % (auto) 0.0 Anion Gap Estim Creat Clear Calc Estimated GFR POC Glucose 360 H* 221 H Random Glucose Calcium 09/26/21 09/26/21 09/26/21 06:14 07:46 11:24 MCV MCH MCHC RDW Plt Count MPV Absolute Nucleated RBC Nucleated RBC % (auto) Anion Gap 15 Estim Creat Clear Calc 60.8 Estimated GFR 44 POC Glucose 233 H 240 H Random Glucose 302 H D Calcium 8.4 Microbiology Microbiology Results: Microbiology 09/25/21 09:09 Blood Culture - Preliminary Blood - Venous No growth after 24 hours. 09/25/21 09:01 Blood Culture - Preliminary Blood - Venous No growth after 24 hours. Assessment and Plan (1) COVID-19: Status: Acute (2) Hypoxia: Status: Acute (3) JUHI (acute kidney injury): Status: Acute (4) Bacteremia: Status: Acute Assessment and Plan: 56 year-old male half-way resident with schizoaffective disorder, HOCM, COPD, JUDY, CAD, HTN, and DM2 presenting with at least 3 days of cough, fever, and dyspnea.? Found to be septic and hypoxic from Covid-19 pneumonia. # Covid-19 pneumonia # viral sepsis # COPD exacerbation - doing better, no further episodes of fever continue dexamethasone 6 mg/d x10d, trend inflammatory markers - prn albuterol HFA,await ID input # acute hypoxic respiratory failure - supplemental O2, wean as tolerated, encourage awake proning, not on home oxygen # gram-positive bacteremia blood culture 1/2 positive for Gram-positive bacte remia chest x-ray showed multilobar pneumonia , low procalcitonin level 0.45 Will treat with IV vancomycin follow final blood culture # JUHI creatinine trending down will DC IV fluid continue to hold hydrochlorothiazide and avoid nephrotoxins follow BMP # hypernatremia resolved with IV hydration # Tn-I elevation - anterior ST elevations due to HOCM with secondary repolarization abnormality; Tn-I flat; likely due to JUHI + sepsis # thrombocytopenia - suspect due to viral sepsis, repeat platelet count improving # QT prolongation, chronic - monitor, keep K>4 + Mg >2 # CAD - continue statin, ASA, metoprolol succinate # HTN - continue amlodipine, metoprolol succinate; hold HCTZ # DM2 - elevated blood sugars likely due to steroid, continue correction-dose lispro; A1c 7; hold MTF # tobacco abuse strongly advised to abstain from smoking, continue nicotine patch # schizoaffective disorder - continue clozapine, lurasidone, and lorazepam # VTE ppx - LMWH # code - full Quality Stroke Does the patient have a stroke diagnosis?: No VTE Prior VTE?: No VTE Risk Level:: Medical - moderate - high VTE Device Contraindication: N/A - Device Ordered VTE Drug Contraindication: N/A - Med Ordered
[2021-09-26] MEDS: vancomycin HCL 750 MG in 0.9 % Sodium Chloride 250 ML 265 MG IV (14:52)
[2021-09-26] MEDS: Enoxaparin Sodium 40 MG/0.4 ML SYRINGE SUBCUT (14:53)
--- NOTE | 2021-09-26 15:13 | P.CNID_ITS ---
History of Present Illness Data of Consult Service Date: 09/26/21 Requesting physician: Clemente Stover Primary Care Provider: Regan Hogue MD HPI Reason for consult: shortness of breath He presents with shortness of breath and cough and low grade fever for three days He is not vaccinated. He lives in halfway. Review of Systems Review of Systems: Yes all other systems are reviewed and are negative [facility] Past Medical History Medical History Aggression BPH (benign prostatic hyperplasia) Cardiac arrhythmia CHF (congestive heart failure) Constipation COPD (chronic obstructive pulmonary disease) Coronary artery disease Diabetes mellitus Essential hypertension HOCM (hypertrophic obstructive cardiomyopathy) Hypertension Myocardial infarction Obesity (BMI 30-39.9) JUDY (obstructive sleep apnea) Prolonged QT interval Pure hypercholesterolemia Schizoaffective disorder Smoker Family History Family History Father Medical history unknown Mother Medical history unknown Sister Alive and well Family history: reviewed and not pertinent Surgical History Surgical History History of intestinal surgery History of transurethral resection of prostate Social History Social History Household Members: Other Housing: Other Housing Other:: Long-Term Do you presently have visiting nurse or other home services: Yes Alcohol intake: former Patient Tobacco Use Status: Current everyday Tobacco user Cigarettes Per Day: 7 Second Hand Smoke Exposure: No Substance Use Type: Unknown service: No Current occupational status: disabled Sexual orientation: Straight/Heterosexual Meds Allergies Allergy/AdvReac Type Severity Reaction Status Date / Time lithium [[place]] Allergy Severe TOXICITY Verified 09/19/21 11:24 thiothixene Allergy Severe SWELLING Verified 09/19/21 11:24 barium sulfate Allergy Intermediate NAUSEA & Verified 09/19/21 11:24 [BARIUM SULFATE] VOMITING haloperidol Allergy Intermediate MUSCLE Verified 09/19/21 11:24 TENSION IN LEGS benztropine Allergy Unknown benztropine Verified 09/19/21 11:24 mesylate- unknown diphenhydramine Allergy Unknown urinary Verified 09/19/21 11:24 [From Benadryl] retention fluphenazine Allergy Unknown UNKNOWN Verified 09/19/21 11:24 gabapentin [From NEURONTIN] Allergy Unknown UNKNOWN Verified 09/19/21 11:24 prolixen Allergy Unknown Unknown Uncoded 09/05/21 03:17 Active Medications: Current Medications Acetaminophen (Acetaminophen 325 Mg Tablet) 650 mg PO Q6H PRN PRN Reason: Pain, Mild (Pain Scale 1-3) Albuterol Sulfate (Albuterol Sulfate 90 Mcg 8 Gm Inhaler) 4 puff INHALE Q4H PRN PRN Reason: asthma Amlodipine Besylate (Amlodipine Besylate 2.5 Mg Tablet) 2.5 mg PO DAILY COUNT [facility]CLUDES [facility]; Protocol Last Admin: 09/26/21 08:36 Dose: 2.5 mg Documented by: Aspirin (Aspirin 81 Mg Tab.Chew) 81 mg PO DAILY COUNT INCLUDES [facility] Last Admin: 09/26/21 08:35 Dose: 81 mg Documented by: Atorvastatin Calcium (Atorvastatin Calcium 20 Mg Tablet) 20 mg PO BEDTIME COUNT INCLUDES [facility] Last Admin: 09/25/21 20:03 Dose: 20 mg Documented by: Clozapine (Clozapine 100 Mg Tablet) 200 mg PO DAILY@1900 [facility] Last Admin: 09/25/21 20:02 Dose: 200 mg Documented by: Clozapine (Clozapine 25 Mg Tablet) 50 mg PO DAILY@1900 [facility] Last Admin: 09/25/21 20:03 Dose: 50 mg Documented by: Dexamethasone Sodium Phosphate (Dexamethasone Sod Phosphate 4 Mg/Ml Vial) 6 mg IVPUSH DAILY COUNT [facility]CLUDES [facility] Stop: 10/04/21 09:01 Last Admin: 09/26/21 08:35 Dose: 6 mg Documented by: Dextrose (Dextrose 50 % 25 Gm/50 Ml Vial) 25 gm IVPUSH Q15M PRN; Protocol PRN Reason: per Hypoglycemia Standing Ord. Enoxaparin Sodium (Enoxaparin Sodium 40 Mg/0.4 Ml Syringe) 40 mg SUBCUT Q24H COUNT [facility]CLUDES [facility] Last Admin: 09/26/21 14:53 Dose: 40 mg Documented by: Glucose (Glucose Gel 15 Gm Gel..Gram.) 15 gm PO Q15M PRN; Protocol PRN Reason: per Hypoglycemia Standing Ord. Vancomycin HCl 750 mg/ Sodium (Chloride) 265 mls @ 265 mls/hr IV Q12H COUNT [facility]CLUDES [facility] Last Admin: 09/26/21 14:52 Dose: 265 mls/hr Documented by: Insulin Human Lispro (Insulin Lispro 100 Unit/Ml 3 Ml Vial) 0 unit SUBCUT QIDACHS COUNT INCLUDES [facility]; Protocol Last Admin: 09/26/21 12:38 Dose: 4 unit Documented by: Lorazepam (Lorazepam 1 Mg Tablet) 1 mg PO BID PRN PRN Reason: Agitation Last Admin: 09/26/21 00:03 Dose: 1 mg Documented by: Lurasidone HCl (Lurasidone Hcl 20 Mg Tablet) 20 mg PO DAILY COUNT [facility]CLUDES [facility] Last Admin: 09/26/21 08:36 Dose: 20 mg Documented by: Metoprolol Succinate (Metoprolol Succinate Er 50 Mg Tab.Er.24h) 50 mg PO BID COUNT [facility]CLUDES [facility]; Protocol Last Admin: 09/26/21 08:36 Dose: 50 mg Documented by: Nicotine (Nicotine 7 Mg Patch.Td24) 7 mg TRANSDERMA DAILY COUNT [facility]CLUDES [facility] Last Admin: 09/26/21 08:34 Dose: 7 mg Documented by: Ondansetron HCl (Ondansetron Hcl 4 Mg/2 Ml Vial) 4 mg IVPUSH Q8H PRN PRN Reason: Nausea and Vomiting Pharmacy Consult (Consult Rx Perform Med Rec) 1 each MISCELLANE ONCE PRN PRN Reason: Consult order Pharmacy Consult (Consult Rx Vancomycin Dosing) 1 each MISCELLANE DAILY PRN PRN Reason: Consult order Polyethylene Glycol (Polyethylene Glycol 3350 17 Gm Powd.Pack) 17 gm PO DAILY COUNT [facility]CLUDES [facility] Last Admin: 09/26/21 08:36 Dose: 17 gm Documented by: Senna/Docusate Sodium (Sennosides/Docusate Sodium Tablet) 2 tab PO BID COUNT [facility]CLUDES [facility] Last Admin: 09/26/21 08:35 Dose: 2 tab Documented by: Sodium Chloride (0.9 % Sodium Chloride Flush 3 Ml Syringe) 3 ml IVFLUSH QSHIFT COUNT INCLUDES [facility] Last Admin: 09/26/21 08:33 Dose: 3 ml Documented by: Vitamin D (Cholecalciferol (Vitamin D3) 25 Mcg Tablet) 25 mcg PO DAILY COUNT [facility]CLUDES [facility] Last Admin: 09/26/21 08:36 Dose: 25 mcg Documented by: Home Medications Medication Instructions Recorded Confirmed Last Taken Type clozapine 100 mg tablet 200 mg PO DAILY@1900 tab 12/28/20 09/25/21 Unknown History lorazepam 1 mg tablet 1 mg PO BID PRN 09/25/21 09/25/21 Unknown History Physical Exam Vital Signs: Vital Signs: Last Vital Signs Temp 99.2 F 09/26/21 15:04 Pulse 100 09/26/21 15:04 Resp 20 09/26/21 15:04 BP 158/83 H 09/26/21 15:04 Pulse Ox 96 09/26/21 15:04 BMI result Body Mass Index 37.2 Const: General: cooperative Eyes: Pupils: Equal, round and reactive pupils present Resp: Effort & Inspection: normal respiratory effort Cardio: Rate: regular rate Rhythm: regular rhythm GI: Palpation (GI): Soft to palpation and nontender Skin: General skin exam: no rashes or lesions noted Neuro: Cranial nerves: Yes Equal, round and reactive pupils present Results Labs CBC & Chem 7: 09/26/21 06:14 09/26/21 06:14 Labs: Short CBC 09/25/21 09/26/21 Range/Units 09:01 06:14 WBC 5.7 (4.8-10.8) X10*3/uL Hgb 12.0 L (14.0-18.0) g/dl Hct 38.3 L (42.0-52.0) % Plt Count 84 L (160-400) X10*3/uL AST 33 (5-37) U/L BMP 09/26/21 06:14 Sodium 143 Potassium 3.9 Chloride 109 H Carbon Dioxide 23 BUN 42 H Creatinine 1.62 H Calcium 8.4 Microbiology Microbiology Results: Microbiology 09/25/21 09:09 Blood - Venous Blood Culture - Preliminary Prelim: GPC Gram Stain only 09/25/21 09:01 Blood - Venous Blood Culture - Preliminary No growth after 24 hours. Assessment and Plan (1) COVID-19: Status: Acute He has COVID within three days Would give Remdesivir per protocol and Dexamethasone (2) Bacteremia: Status: Acute May be contaminant Vancomycin for now
[2021-09-26 16:48] LABS: Glucose, Whole Blood 186 mg/dL (60-115)
[2021-09-26] MEDS: Remdesivir 200 MG in 0.9 % Sodium Chloride 210 ML 105 MG IV (17:05)
[2021-09-26] MEDS: cloZAPine 25 MG TABLET 50 MG PO (19:47)
[2021-09-26] MEDS: cloZAPine 100 MG TABLET 200 MG PO (19:48)
[2021-09-26] MEDS: Acetaminophen 325 MG TABLET 650 MG PO (19:48)
[2021-09-26] MEDS: Atorvastatin Calcium 20 MG TABLET PO (19:48)
[2021-09-26 20:26] LABS: Glucose, Whole Blood 168 mg/dL (60-115)
[2021-09-26] MEDS: Morphine Sulfate 2 MG/ML CARTRIDGE 1 MG IVPUSH (22:59)
[2021-09-27] VITALS (8 sets, daily range): BP systolic 116–153; BP diastolic 60–80; PULSE 90–109; RESP 18–28; TEMP 36.8–37.7; O2SAT 87–93
[2021-09-27] MEDS: vancomycin HCL 750 MG in 0.9 % Sodium Chloride 250 ML 250 MG IV (03:05)
[2021-09-27] MEDS: Acetaminophen 325 MG TABLET 650 MG PO ×2 (03:10→20:54)
[2021-09-27] MEDS: Morphine Sulfate 2 MG/ML CARTRIDGE 1 MG IVPUSH ×3 (03:19→20:54)
[2021-09-27 07:07] LABS: Anion Gap 15 (12-20); Blood Urea Nitrogen 41 mg/dL (9-16); Calcium 7.9 mg/dL (8.4-10.2); Carbon Dioxide 23 mmol/L (22-29); Chloride 109 mmol/L (96-108); Creatinine Clr Calc Pharmacy 64.4; Estimated Glomerular Filt Rate 47; Glucose Random 220 mg/dL (60-115); Sodium 143 mmol/L (135-145)
[2021-09-27 07:23] LABS: Glucose, Whole Blood 183 mg/dL (60-115)
[2021-09-27] MEDS: Aspirin 81 MG TAB.CHEW PO (07:57)
[2021-09-27] MEDS: Nicotine 7 MG PATCH.TD24 TRANSDERMA (07:57)
[2021-09-27] MEDS: dexAMETHasone sod phosphate 4 MG/ML VIAL 6 MG IVPUSH (07:57)
[2021-09-27] MEDS: polyethylene glycoL 3350 17 GM POWD.PACK PO (07:57)
[2021-09-27] MEDS: Lurasidone HCl 20 MG TABLET PO (07:57)
[2021-09-27] MEDS: LORazepam 1 MG TABLET PO ×2 (07:57→20:54)
[2021-09-27] MEDS: amLODIPine Besylate 2.5 MG TABLET PO (07:58)
[2021-09-27] MEDS: Sennosides/Docusate Sodium TABLET 2 TAB PO ×2 (07:58→20:54)
[2021-09-27] MEDS: Cholecalciferol (Vitamin D3) 25 MCG TABLET PO (07:58)
[2021-09-27] MEDS: Metoprolol Succinate ER 50 MG TAB.ER.24H PO ×2 (07:58→20:53)
[2021-09-27] MEDS: Insulin Lispro 100 UNIT/ML 3 ML VIAL SUBCUT ×4 (07:59→20:54)
[2021-09-27] MEDS: 0.9 % Sodium Chloride Flush 3 ML SYRINGE IVFLUSH ×3 (07:59→20:54)
[2021-09-27 11:56] LABS: Glucose, Whole Blood 194 mg/dL (60-115)
[2021-09-27] MEDS: Enoxaparin Sodium 40 MG/0.4 ML SYRINGE SUBCUT (12:20)
--- NOTE | 2021-09-27 13:45 | HO.PM.IMPN ---
Subjective Subjective Date of Service: 09/27/21 Interval History: Trying to get up from chair frequently, easily redirected, offers no acute complaints of chest pain or shortness of breath but appears tachypneic, no fever chills, overnight noted to have increase in oxygen requirement now on 8 L of oxygen. Review of Systems Review of Systems: Yes all other systems are reviewed and are negative Physical Exam Vital Signs: Vital Signs: Last Vital Signs Temp 99 F 09/27/21 12:00 Pulse 101 H 09/27/21 12:00 Resp 28 H 09/27/21 12:00 BP 130/60 09/27/21 12:00 Pulse Ox 92 09/27/21 12:00 BMI result Body Mass Index 37.2 Gen: tachypneic, on 8L O2 via NC Neck: supple, no JVD Lungs: bilateral rhonchi, diminished breath sounds Heart: regular rate and rhythm, no murmurs Abd: soft, non-tender, non-distended, bowel sounds audible Ext: no edema Skin: warm/well-perfused Neuro: alert and oriented x3, no focal findings Psych: impaired insight ? Objective Data Active Medications Acetaminophen (Acetaminophen 325 Mg Tablet) 650 mg PO Q6H PRN PRN Reason: Pain, Mild (Pain Scale 1-3) Last Admin: 09/27/21 03:10 Dose: 650 mg Documented by: MYA Albuterol Sulfate (Albuterol Sulfate 90 Mcg 8 Gm Inhaler) 4 puff INHALE Q4H PRN PRN Reason: asthma Amlodipine Besylate (Amlodipine Besylate 2.5 Mg Tablet) 2.5 mg PO DAILY [facility]; Protocol Last Admin: 09/27/21 07:58 Dose: 2.5 mg Documented by: YAMILEX Aspirin (Aspirin 81 Mg Tab.Chew) 81 mg PO DAILY [facility] Last Admin: 09/27/21 07:57 Dose: 81 mg Documented by: YAMILEX Atorvastatin Calcium (Atorvastatin Calcium 20 Mg Tablet) 20 mg PO BEDTIME [facility] Last Admin: 09/26/21 19:48 Dose: 20 mg Documented by: YMA Azithromycin (Azithromycin 500 Mg Tablet) 500 mg PO Q24H [facility] Clozapine (Clozapine 100 Mg Tablet) 200 mg PO DAILY@1900 [facility] Last Admin: 09/26/21 19:48 Dose: 200 mg Documented by: MYA Clozapine (Clozapine 25 Mg Tablet) 50 mg PO DAILY@1900 [facility] Last Admin: 09/26/21 19:47 Dose: 50 mg Documented by: MYA Dextrose (Dextrose 50 % 25 Gm/50 Ml Vial) 25 gm IVPUSH Q15M PRN; Protocol PRN Reason: per Hypoglycemia Standing Ord. Enoxaparin Sodium (Enoxaparin Sodium 40 Mg/0.4 Ml Syringe) 40 mg SUBCUT Q24H [facility] Last Admin: 09/27/21 12:20 Dose: 40 mg Documented by: YAMILEX Glucose (Glucose Gel 15 Gm Gel..Gram.) 15 gm PO Q15M PRN; Protocol PRN Reason: per Hypoglycemia Standing Ord. Remdesivir 100 mg/ Sodium (Chloride) 230 mls @ 115 mls/hr IV Q24H [facility] Stop: 09/30/21 17:59 Insulin Human Lispro (Insulin Lispro 100 Unit/Ml 3 Ml Vial) 0 unit SUBCUT QIDACHS [facility]; Protocol Last Admin: 09/27/21 12:19 Dose: 2 unit Documented by: YAMILEX Lorazepam (Lorazepam 1 Mg Tablet) 1 mg PO BID PRN PRN Reason: Agitation Last Admin: 09/27/21 07:57 Dose: 1 mg Documented by: YAMILEX Lurasidone HCl (Lurasidone Hcl 20 Mg Tablet) 20 mg PO DAILY [facility] Last Admin: 09/27/21 07:57 Dose: 20 mg Documented by: YAMILEX Methylprednisolone Sodium Succinate (Methylprednisolone Sod Succ 125 Mg/2 Ml Vial) 60 mg IVPUSH Q12H [facility] Metoprolol Succinate (Metoprolol Succinate Er 50 Mg Tab.Er.24h) 50 mg PO BID [facility]; Protocol Last Admin: 09/27/21 07:58 Dose: 50 mg Documented by: YAMILEX Morphine Sulfate (Morphine Sulfate 2 Mg/Ml Cartridge) 1 mg IVPUSH Q4H PRN; Protocol PRN Reason: pain/SOB Last Admin: 09/27/21 07:56 Dose: 1 mg Documented by: YAMILEX Nicotine (Nicotine 7 Mg Patch.Td24) 7 mg TRANSDERMA DAILY [facility] Last Admin: 09/27/21 07:57 Dose: 7 mg Documented by: YAMILEX Ondansetron HCl (Ondansetron Hcl 4 Mg/2 Ml Vial) 4 mg IVPUSH Q8H PRN PRN Reason: Nausea and Vomiting Pharmacy Consult (Consult Rx Perform Med Rec) 1 each MISCELLANE ONCE PRN PRN Reason: Consult order Pharmacy Consult (Consult Rx Vancomycin Dosing) 1 each MISCELLANE DAILY PRN PRN Reason: Consult order Polyethylene Glycol (Polyethylene Glycol 3350 17 Gm Powd.Pack) 17 gm PO DAILY [facility] Last Admin: 09/27/21 07:57 Dose: 17 gm Documented by: YAMILEX Senna/Docusate Sodium (Sennosides/Docusate Sodium Tablet) 2 tab PO BID [facility] Last Admin: 09/27/21 07:58 Dose: 2 tab Documented by: YAMILEX Sodium Chloride (0.9 % Sodium Chloride Flush 3 Ml Syringe) 3 ml IVFLUSH QSHIFT [facility] Last Admin: 09/27/21 07:59 Dose: 3 ml Documented by: YAMILEX Vitamin D (Cholecalciferol (Vitamin D3) 25 Mcg Tablet) 25 mcg PO DAILY [facility] Last Admin: 09/27/21 07:58 Dose: 25 mcg Documented by: YAMILEX Labs CBC & Chem 7: 09/26/21 06:14 09/27/21 06:20 Labs: Laboratory Results - last 24 hr 09/26/21 09/26/21 09/27/21 15:57 20:13 06:20 Anion Gap 15 Estim Creat Clear Calc 64.4 Estimated GFR 47 POC Glucose 186 H 168 H Random Glucose 220 H Calcium 7.9 L 09/27/21 09/27/21 07:19 11:41 Anion Gap Estim Creat Clear Calc Estimated GFR POC Glucose 183 H 194 H Random Glucose Calcium Microbiology Microbiology Results: Microbiology 09/25/21 09:01 Blood Culture - Preliminary Blood - Venous No growth after 48 hours. 09/25/21 09:09 Blood Culture - Final Blood - Venous Coag negative Staphylococcus Assessment and Plan (1) COVID-19: Status: Acute (2) Hypoxia: Status: Acute (3) Diabetes mellitus: Status: Acute Assessment and Plan: 56 year-old male [facility] resident with schizoaffective disorder, HOCM, COPD, JUDY, CAD, HTN, and DM2 presenting with at least 3 days of cough, fever, and dyspnea.? Found to be septic and hypoxic from Covid-19 pneumonia. # acute hypoxic respiratory failure due to Covid-19 pneumonia/ viral sepsis, COPD exacerbation - noted to have increased oxygen requirement overnight, appears tachypnea Will DC dexamethasone 6 mg/d , will place on IV Solu Medrol, will place on DuoNeb updraft Q 4 hours, by mouth azithromycin, trend inflammatory markers, D-dimer 167 - seen by ID started on remdesivir , continue prn albuterol HFA, gradually wean oxygen as tolerated, not on home oxygen encourage awake proning and frequent position change # coagulase negative staph in 1/2 blood cultures unlikely pathogen will DC vancomycin # JUHI creatinine trending down s/p IV fluid continue to hold hydrochlorothiazide and avoid nephrotoxins follow BMP # hypernatremia resolved with IV hydration # Tn-I elevation - anterior ST elevations due to HOCM with secondary repolarization abnormality; Tn-I flat; likely due to JUHI + sepsis # thrombocytopenia - suspect due to viral sepsis, repeat platelet count improving # QT prolongation, chronic - monitor, keep K>4 + Mg >2 # CAD - continue statin, ASA, metoprolol succinate # HTN - continue amlodipine, metoprolol succinate; hold HCTZ # DM2 - elevated blood sugars likely due to steroid, continue correction-dose lispro; A1c 7; hold MTF # tobacco abuse strongly advised to abstain from smoking, continue nicotine patch # schizoaffective disorder - continue clozapine, lurasidone, and lorazepam # obesity recommend low-calorie diet and exercise # VTE ppx - LMWH # code - full Quality Stroke Does the patient have a stroke diagnosis?: No VTE Prior VTE?: No VTE Risk Level:: Medical - moderate - high VTE Device Contraindication: N/A - Device Ordered VTE Drug Contraindication: N/A - Med Ordered
[2021-09-27] MEDS: Azithromycin 500 MG TABLET PO (14:22)
[2021-09-27] MEDS: methylPREDNISolone Sod Succ 125 MG/2 ML VIAL 60 MG IVPUSH (14:22)
[2021-09-27] MEDS: Albuterol/Iprat 2.5/0.5MG 3 ML AMPUL.NEB INHALE (15:13)
[2021-09-27 16:24] LABS: Glucose, Whole Blood 326 mg/dL (60-115)
[2021-09-27] MEDS: Remdesivir 100 MG in 0.9 % Sodium Chloride 230 ML 115 MG IV (16:34)
[2021-09-27] MEDS: cloZAPine 25 MG TABLET 50 MG PO (18:36)
[2021-09-27] MEDS: cloZAPine 100 MG TABLET 200 MG PO (18:36)
[2021-09-27 20:25] LABS: Glucose, Whole Blood 229 mg/dL (60-115)
[2021-09-27] MEDS: Atorvastatin Calcium 20 MG TABLET PO (20:53)
[2021-09-28] VITALS (12 sets, daily range): BP systolic 124–144; BP diastolic 70–82; PULSE 80–100; RESP 18–24; TEMP 36.7–37.1; O2SAT 87–93
[2021-09-28] MEDS: methylPREDNISolone Sod Succ 125 MG/2 ML VIAL 60 MG IVPUSH ×2 (01:42→13:05)
[2021-09-28 07:25] LABS: Glucose, Whole Blood 209 mg/dL (60-115)
[2021-09-28] MEDS: Albuterol/Iprat 2.5/0.5MG 3 ML AMPUL.NEB INHALE ×4 (07:59→21:10)
[2021-09-28] MEDS: Sennosides/Docusate Sodium TABLET 2 TAB PO ×2 (08:00→21:43)
[2021-09-28] MEDS: Cholecalciferol (Vitamin D3) 25 MCG TABLET PO (08:00)
[2021-09-28] MEDS: Aspirin 81 MG TAB.CHEW PO (08:00)
[2021-09-28] MEDS: Lurasidone HCl 20 MG TABLET PO (08:00)
[2021-09-28] MEDS: Metoprolol Succinate ER 50 MG TAB.ER.24H PO ×2 (08:01→21:43)
[2021-09-28] MEDS: amLODIPine Besylate 2.5 MG TABLET PO (08:01)
[2021-09-28] MEDS: Nicotine 7 MG PATCH.TD24 TRANSDERMA (08:01)
[2021-09-28] MEDS: polyethylene glycoL 3350 17 GM POWD.PACK PO (08:02)
[2021-09-28] MEDS: Insulin Lispro 100 UNIT/ML 3 ML VIAL SUBCUT ×4 (08:02→21:44)
[2021-09-28] MEDS: 0.9 % Sodium Chloride Flush 3 ML SYRINGE IVFLUSH ×2 (08:04→16:40)
--- NOTE | 2021-09-28 11:37 | MHC.CM.PN ---
Per ROUNDS discussion, Patient is still on high flow O2 and not yet medically cleared for dc. Returning to the Intermediate is the goal for dc and CM will follow for possible need to adjust the dc plan.
[2021-09-28 12:24] LABS: Glucose, Whole Blood 386 mg/dL (60-115)
[2021-09-28] MEDS: Enoxaparin Sodium 40 MG/0.4 ML SYRINGE SUBCUT (13:06)
[2021-09-28] MEDS: Azithromycin 500 MG TABLET PO (13:06)
[2021-09-28 16:09] LABS: Glucose, Whole Blood 284 mg/dL (60-115)
[2021-09-28] MEDS: Remdesivir 100 MG in 0.9 % Sodium Chloride 230 ML 115 MG IV (16:40)
--- NOTE | 2021-09-28 17:41 | HO.PM.IMPN ---
Subjective Subjective Date of Service: 09/28/21 Interval History: Noted to be in respiratory distress this morning with hypoxia, therefore placed on high-flow oxygen, offers no acute complaints, difficult to understand patient with underlying schizoaffective disorder. Review of Systems Review of Systems: Yes all other systems are reviewed and are negative Physical Exam Vital Signs: Vital Signs: Last Vital Signs Temp 98.8 F 09/28/21 15:13 Pulse 100 09/28/21 15:13 Resp 18 09/28/21 15:27 BP 142/82 H 09/28/21 15:13 Pulse Ox 93 09/28/21 15:13 BMI result Body Mass Index 37.2 Gen: tachypneic, in mild to moderate respiratory distress, using abdominal muscles on 8L O2 via NC Neck: supple, no JVD Lungs: bilateral rhonchi, diminished breath sounds Heart: regular rate and rhythm, no murmurs Abd: soft, non-tender, non-distended, bowel sounds audible Ext: no edema Skin: warm/well-perfused Neuro: alert and oriented x3, no focal findings Psych: impaired insight ? Objective Data Active Medications Acetaminophen (Acetaminophen 325 Mg Tablet) 650 mg PO Q6H PRN PRN Reason: Pain, Mild (Pain Scale 1-3) Last Admin: 09/27/21 20:54 Dose: 650 mg Documented by: MYA Albuterol Sulfate (Albuterol Sulfate 90 Mcg 8 Gm Inhaler) 4 puff INHALE Q4H PRN PRN Reason: asthma Albuterol/Ipratropium (Albuterol/Iprat 2.5/0.5mg 3 Ml Ampul.Neb) 3 ml INHALE RQ4H WHILE AWAKE [facility] Last Admin: 09/28/21 15:27 Dose: 3 ml Documented by: JOHANA Amlodipine Besylate (Amlodipine Besylate 2.5 Mg Tablet) 2.5 mg PO DAILY [facility]; Protocol Last Admin: 09/28/21 08:01 Dose: 2.5 mg Documented by: SUMMER Aspirin (Aspirin 81 Mg Tab.Chew) 81 mg PO DAILY [facility] Last Admin: 09/28/21 08:00 Dose: 81 mg Documented by: SUMMER Atorvastatin Calcium (Atorvastatin Calcium 20 Mg Tablet) 20 mg PO BEDTIME [facility] Last Admin: 09/27/21 20:53 Dose: 20 mg Documented by: MYA Azithromycin (Azithromycin 500 Mg Tablet) 500 mg PO Q24H [facility] Last Admin: 09/28/21 13:06 Dose: 500 mg Documented by: SUMMER Clozapine (Clozapine 100 Mg Tablet) 200 mg PO DAILY@1900 [facility] Last Admin: 09/27/21 18:36 Dose: 200 mg Documented by: YAMILEX Clozapine (Clozapine 25 Mg Tablet) 50 mg PO DAILY@1900 [facility] Last Admin: 09/27/21 18:36 Dose: 50 mg Documented by: YAMILEX Dextrose (Dextrose 50 % 25 Gm/50 Ml Vial) 25 gm IVPUSH Q15M PRN; Protocol PRN Reason: per Hypoglycemia Standing Ord. Enoxaparin Sodium (Enoxaparin Sodium 40 Mg/0.4 Ml Syringe) 40 mg SUBCUT Q24H [facility] Last Admin: 09/28/21 13:06 Dose: 40 mg Documented by: SUMMER Glucose (Glucose Gel 15 Gm Gel..Gram.) 15 gm PO Q15M PRN; Protocol PRN Reason: per Hypoglycemia Standing Ord. Remdesivir 100 mg/ Sodium (Chloride) 230 mls @ 115 mls/hr IV Q24H [facility] Stop: 09/30/21 17:59 Last Admin: 09/28/21 16:40 Dose: 115 mls/hr Documented by: SUMMER Insulin Human Lispro (Insulin Lispro 100 Unit/Ml 3 Ml Vial) 0 unit SUBCUT QIDACHS [facility]; Protocol Last Admin: 09/28/21 16:40 Dose: 8 unit Documented by: SUMMER Lorazepam (Lorazepam 1 Mg Tablet) 1 mg PO BID PRN PRN Reason: Agitation Last Admin: 09/27/21 20:54 Dose: 1 mg Documented by: MYA Lurasidone HCl (Lurasidone Hcl 20 Mg Tablet) 20 mg PO DAILY [facility] Last Admin: 09/28/21 08:00 Dose: 20 mg Documented by: SUMMER Methylprednisolone Sodium Succinate (Methylprednisolone Sod Succ 125 Mg/2 Ml Vial) 60 mg IVPUSH Q12H [facility] Last Admin: 09/28/21 13:05 Dose: 60 mg Documented by: SUMMER Metoprolol Succinate (Metoprolol Succinate Er 50 Mg Tab.Er.24h) 50 mg PO BID [facility]; Protocol Last Admin: 09/28/21 08:01 Dose: 50 mg Documented by: SUMMER Morphine Sulfate (Morphine Sulfate 2 Mg/Ml Cartridge) 1 mg IVPUSH Q4H PRN; Protocol PRN Reason: pain/SOB Last Admin: 09/27/21 20:54 Dose: 1 mg Documented by: ANTOIC Nicotine (Nicotine 7 Mg Patch.Td24) 7 mg TRANSDERMA DAILY [facility] Last Admin: 09/28/21 08:01 Dose: 7 mg Documented by: SUMMER Ondansetron HCl (Ondansetron Hcl 4 Mg/2 Ml Vial) 4 mg IVPUSH Q8H PRN PRN Reason: Nausea and Vomiting Pharmacy Consult (Consult Rx Perform Med Rec) 1 each MISCELLANE ONCE PRN PRN Reason: Consult order Pharmacy Consult (Consult Rx Vancomycin Dosing) 1 each MISCELLANE DAILY PRN PRN Reason: Consult order Polyethylene Glycol (Polyethylene Glycol 3350 17 Gm Powd.Pack) 17 gm PO DAILY [facility] Last Admin: 09/28/21 08:02 Dose: 17 gm Documented by: SUMMER Senna/Docusate Sodium (Sennosides/Docusate Sodium Tablet) 2 tab PO BID [facility] Last Admin: 09/28/21 08:00 Dose: 2 tab Documented by: SUMMER Sodium Chloride (0.9 % Sodium Chloride Flush 3 Ml Syringe) 3 ml IVFLUSH QSHIFT [facility] Last Admin: 09/28/21 16:40 Dose: 3 ml Documented by: SUMMER Vitamin D (Cholecalciferol (Vitamin D3) 25 Mcg Tablet) 25 mcg PO DAILY [facility] Last Admin: 09/28/21 08:00 Dose: 25 mcg Documented by: SUMMER Labs CBC & Chem 7: 09/26/21 06:14 09/27/21 06:20 Labs: Laboratory Results - last 24 hr 09/27/21 09/28/21 09/28/21 20:21 00:45 07:22 POC Glucose 229 H 209 H Vancomycin Trough 3.0 L 09/28/21 09/28/21 12:09 15:54 POC Glucose 386 H* 284 H Vancomycin Trough Assessment and Plan (1) COVID-19: Status: Acute (2) Acute respiratory failure with hypoxia: Status: Acute Assessment and Plan: 56 year-old male custodial resident with schizoaffective disorder, HOCM, COPD, JUDY, CAD, HTN, and DM2 presenting with at least 3 days of cough, fever, and dyspnea.? Found to be septic and hypoxic from Covid-19 pneumonia. # acute hypoxic respiratory failure due to Covid-19 pneumonia/ viral sepsis, COPD exacerbation - noted to be in respiratory distress this a.m. with hypoxia on 8 L of oxygen Placed on high-flow oxygen, continue IV Solu Medrol, DuoNeb scheduled and as needed ,po azithromycin, trend inflammatory markers, D-dimer 167 - seen by ID started on remdesivir , encourage awake proning and frequent position change # coagulase negative staph in 1/2 blood cultures unlikely pathogen antibiotics discontinued # JUHI creatinine trending down s/p IV fluid continue to hold hydrochlorothiazide and avoid nephrotoxins follow BMP # hypernatremia resolved with IV hydration # Tn-I elevation - anterior ST elevations due to HOCM with secondary repolarization abnormality; Tn-I flat; likely due to JUHI + sepsis # thrombocytopenia - suspect due to viral sepsis, repeat platelet count improving # QT prolongation, chronic - monitor, keep K>4 + Mg >2 # CAD - continue statin, ASA, metoprolol succinate # HTN - stable blood pressure, continue amlodipine, metoprolol succinate; hold HCTZ # DM2 - elevated blood sugars likely due to steroid, continue correction-dose lispro; A1c 7; hold MTF # tobacco abuse strongly advised to abstain from smoking, continue nicotine patch # schizoaffective disorder - continue clozapine, lurasidone, and lorazepam # obesity recommend low-calorie diet and exercise # VTE ppx - LMWH # code - full Quality Stroke Does the patient have a stroke diagnosis?: No VTE Prior VTE?: No VTE Risk Level:: Medical - moderate - high VTE Device Contraindication: N/A - Device Ordered VTE Drug Contraindication: N/A - Med Ordered
[2021-09-28] MEDS: cloZAPine 100 MG TABLET 200 MG PO (18:14)
[2021-09-28] MEDS: cloZAPine 25 MG TABLET 50 MG PO (18:14)
[2021-09-28 20:27] LABS: Glucose, Whole Blood 237 mg/dL (60-115)
[2021-09-28] MEDS: Morphine Sulfate 2 MG/ML CARTRIDGE 1 MG IVPUSH (21:42)
[2021-09-28] MEDS: Atorvastatin Calcium 20 MG TABLET PO (21:43)
[2021-09-28 23:23] LABS: ABG Base Excess 0.4 mmol/L; ABG HCO3 25 mmol/L (22-26); ABG pCO2 39 mmHg (32-45); ABG pCO2 TC 39 mmHg (32-45); ABG pO2 71 mmHg (83-108); ABG pO2 TC 72 (83-108)
[2021-09-29] VITALS (14 sets, daily range): BP systolic 117–168; BP diastolic 66–90; PULSE 75–120; RESP 18–30; TEMP 36.4–37.7; O2SAT 91–97
[2021-09-29] MEDS: methylPREDNISolone Sod Succ 125 MG/2 ML VIAL 60 MG IVPUSH ×2 (03:15→13:23)
[2021-09-29] MEDS: 0.9 % Sodium Chloride Flush 3 ML SYRINGE IVFLUSH ×4 (03:18→21:42)
[2021-09-29 06:51] LABS: Anion Gap 13 (12-20); Blood Urea Nitrogen 52 mg/dL (9-16); Calcium 8.4 mg/dL (8.4-10.2); Carbon Dioxide 26 mmol/L (22-29); Chloride 111 mmol/L (96-108); Creatinine Clr Calc Pharmacy 73.5; Estimated Glomerular Filt Rate 55; Glucose Random 272 mg/dL (60-115); Potassium 4.7 mmol/L (3.3-5.1); Sodium 145 mmol/L (135-145)
[2021-09-29 07:51] LABS: Glucose, Whole Blood 245 mg/dL (60-115)
[2021-09-29] MEDS: Insulin Lispro 100 UNIT/ML 3 ML VIAL SUBCUT ×4 (09:10→21:40)
[2021-09-29] MEDS: Albuterol/Iprat 2.5/0.5MG 3 ML AMPUL.NEB INHALE ×4 (09:12→19:49)
[2021-09-29] MEDS: Nicotine 7 MG PATCH.TD24 TRANSDERMA (09:12)
[2021-09-29] MEDS: Cholecalciferol (Vitamin D3) 25 MCG TABLET PO (09:13)
[2021-09-29] MEDS: polyethylene glycoL 3350 17 GM POWD.PACK PO (09:13)
[2021-09-29] MEDS: Lurasidone HCl 20 MG TABLET PO (09:13)
[2021-09-29] MEDS: amLODIPine Besylate 2.5 MG TABLET PO (09:13)
[2021-09-29] MEDS: Aspirin 81 MG TAB.CHEW PO (09:13)
[2021-09-29] MEDS: Sennosides/Docusate Sodium TABLET 2 TAB PO ×2 (09:13→21:40)
[2021-09-29] MEDS: Metoprolol Succinate ER 50 MG TAB.ER.24H PO ×2 (09:13→21:39)
--- NOTE | 2021-09-29 10:50 | HO.PM.IMPN ---
Subjective Subjective Date of Service: 09/29/21 Interval History: Patient appears comfortable this morning, noted to have hypoxia overnight therefore placed on non-rebreather mask in addition to high-flow oxygen, denies fever chills, no headache no dizziness, tolerating diet. Review of Systems Review of Systems: Yes all other systems are reviewed and are negative Physical Exam Vital Signs: Vital Signs: Last Vital Signs Temp 97.9 F 09/29/21 07:33 Pulse 94 09/29/21 09:13 Resp 18 09/29/21 09:16 BP 129/84 09/29/21 07:33 Pulse Ox 97 09/29/21 07:33 BMI result Body Mass Index 37.2 Gen: Awake alert resting comfortably, on high-flow and non-rebreather mask Neck: supple, no JVD Lungs: bilateral scattered rhonchi, diminished breath sound no respiratory distress Heart: regular rate and rhythm, no murmurs Abd: soft, non-tender, non-distended, bowel sounds audible Ext: no edema Skin: warm/well-perfused Neuro: alert and oriented x3, no focal findings Psych: impaired insight ? Objective Data Active Medications Acetaminophen (Acetaminophen 325 Mg Tablet) 650 mg PO Q6H PRN PRN Reason: Pain, Mild (Pain Scale 1-3) Last Admin: 09/27/21 20:54 Dose: 650 mg Documented by: MYA Albuterol Sulfate (Albuterol Sulfate 90 Mcg 8 Gm Inhaler) 4 puff INHALE Q4H PRN PRN Reason: asthma Albuterol/Ipratropium (Albuterol/Iprat 2.5/0.5mg 3 Ml Ampul.Neb) 3 ml INHALE RQ4H WHILE AWAKE [facility] Last Admin: 09/29/21 09:12 Dose: 3 ml Documented by: AL Amlodipine Besylate (Amlodipine Besylate 2.5 Mg Tablet) 2.5 mg PO DAILY [facility]; Protocol Last Admin: 09/29/21 09:13 Dose: 2.5 mg Documented by: LETITIA Aspirin (Aspirin 81 Mg Tab.Chew) 81 mg PO DAILY [facility] Last Admin: 09/29/21 09:13 Dose: 81 mg Documented by: LETITIA Atorvastatin Calcium (Atorvastatin Calcium 20 Mg Tablet) 20 mg PO BEDTIME [facility] Last Admin: 09/28/21 21:43 Dose: 20 mg Documented by: ARDEN Azithromycin (Azithromycin 500 Mg Tablet) 500 mg PO Q24H [facility] Last Admin: 09/28/21 13:06 Dose: 500 mg Documented by: SUMMER Clozapine (Clozapine 100 Mg Tablet) 200 mg PO DAILY@1900 [facility] Last Admin: 09/28/21 18:14 Dose: 200 mg Documented by: SUMMER Clozapine (Clozapine 25 Mg Tablet) 50 mg PO DAILY@1900 [facility] Last Admin: 09/28/21 18:14 Dose: 50 mg Documented by: SUMMER Dextrose (Dextrose 50 % 25 Gm/50 Ml Vial) 25 gm IVPUSH Q15M PRN; Protocol PRN Reason: per Hypoglycemia Standing Ord. Enoxaparin Sodium (Enoxaparin Sodium 40 Mg/0.4 Ml Syringe) 40 mg SUBCUT Q24H [facility] Last Admin: 09/28/21 13:06 Dose: 40 mg Documented by: SUMMER Glucose (Glucose Gel 15 Gm Gel..Gram.) 15 gm PO Q15M PRN; Protocol PRN Reason: per Hypoglycemia Standing Ord. Remdesivir 100 mg/ Sodium (Chloride) 230 mls @ 115 mls/hr IV Q24H [facility] Stop: 09/30/21 17:59 Last Infusion: 09/28/21 20:19 Dose: 0 mls/hr Documented by: ARDEN Tocilizumab 800 mg/ Sodium (Chloride) 100 mls @ 100 mls/hr IV ONCE ONE Stop: 09/29/21 11:14 Insulin Human Lispro (Insulin Lispro 100 Unit/Ml 3 Ml Vial) 0 unit SUBCUT QIDACHS [facility]; Protocol Last Admin: 09/29/21 09:10 Dose: 6 unit Documented by: LETITIA Lorazepam (Lorazepam 1 Mg Tablet) 1 mg PO BID PRN PRN Reason: Agitation Last Admin: 09/27/21 20:54 Dose: 1 mg Documented by: MYA Lurasidone HCl (Lurasidone Hcl 20 Mg Tablet) 20 mg PO DAILY [facility] Last Admin: 09/29/21 09:13 Dose: 20 mg Documented by: LETITIA Methylprednisolone Sodium Succinate (Methylprednisolone Sod Succ 125 Mg/2 Ml Vial) 60 mg IVPUSH Q12H [facility] Last Admin: 09/29/21 03:15 Dose: 60 mg Documented by: ARDEN Metoprolol Succinate (Metoprolol Succinate Er 50 Mg Tab.Er.24h) 50 mg PO BID [facility]; Protocol Last Admin: 09/29/21 09:13 Dose: 50 mg Documented by: LETITIA Morphine Sulfate (Morphine Sulfate 2 Mg/Ml Cartridge) 1 mg IVPUSH Q4H PRN; Protocol PRN Reason: pain/SOB Last Admin: 09/28/21 21:42 Dose: 1 mg Documented by: ARDEN Nicotine (Nicotine 7 Mg Patch.Td24) 7 mg TRANSDERMA DAILY [facility] Last Admin: 09/29/21 09:12 Dose: 7 mg Documented by: LETITIA Ondansetron HCl (Ondansetron Hcl 4 Mg/2 Ml Vial) 4 mg IVPUSH Q8H PRN PRN Reason: Nausea and Vomiting Pharmacy Consult (Consult Rx Perform Med Rec) 1 each MISCELLANE ONCE PRN PRN Reason: Consult order Pharmacy Consult (Consult Rx Vancomycin Dosing) 1 each MISCELLANE DAILY PRN PRN Reason: Consult order Polyethylene Glycol (Polyethylene Glycol 3350 17 Gm Powd.Pack) 17 gm PO DAILY [facility] Last Admin: 09/29/21 09:13 Dose: 17 gm Documented by: LETITIA Senna/Docusate Sodium (Sennosides/Docusate Sodium Tablet) 2 tab PO BID [facility] Last Admin: 09/29/21 09:13 Dose: 2 tab Documented by: LETITIA Sodium Chloride (0.9 % Sodium Chloride Flush 3 Ml Syringe) 3 ml IVFLUSH QSHIFT [facility] Last Admin: 09/29/21 09:11 Dose: 3 ml Documented by: LETITIA Vitamin D (Cholecalciferol (Vitamin D3) 25 Mcg Tablet) 25 mcg PO DAILY [facility] Last Admin: 09/29/21 09:13 Dose: 25 mcg Documented by: LETITIA Labs CBC & Chem 7: 09/26/21 06:14 09/29/21 05:58 Labs: Laboratory Results - last 24 hr 09/28/21 09/28/21 09/28/21 12:09 15:54 20:22 O2 Saturation ABG pH at Pt Temp ABG pH (Temp Correct) ABG pCO2 at Pt Temp ABG pCO2 (Temp Corrct ABG pO2 at Pt Temp ABG pO2 (Temp Correct ABG HCO3 ABG Base Excess (Actual) Anion Gap Estim Creat Clear Calc Estimated GFR POC Glucose 386 H* 284 H 237 H Random Glucose Calcium C-Reactive Protein 09/28/21 09/29/21 09/29/21 23:16 05:58 07:40 O2 Saturation 91.0 ABG pH at Pt Temp 7.40 ABG pH (Temp Correct) 7.40 ABG pCO2 at Pt Temp 39 ABG pCO2 (Temp Corrct 39 ABG pO2 at Pt Temp 71 L ABG pO2 (Temp Correct 72 L ABG HCO3 25 ABG Base Excess (Actual) 0.4 Anion Gap 13 Estim Creat Clear Calc 73.5 Estimated GFR 55 POC Glucose 245 H Random Glucose 272 H Calcium 8.4 D C-Reactive Protein 8.60 H Assessment and Plan (1) Acute respiratory failure with hypoxia: Status: Acute (2) COVID-19: Status: Acute Assessment and Plan: 56 year-old male care home resident with schizoaffective disorder, HOCM, COPD, JUDY, CAD, HTN, and DM2 presenting with at least 3 days of cough, fever, and dyspnea.? Found to be septic and hypoxic from Covid-19 pneumonia. # acute hypoxic respiratory failure due to Covid-19 pneumonia/ viral sepsis, COPD exacerbation - hypoxic overnight therefore placed on non-rebreather, on high-flow oxygen, no respiratory distress this morning oxygenation stable ? continue IV remdesivir, IV Solu Medrol, DuoNeb scheduled and as needed ,po azithromycin, trend inflammatory markers, D-dimer 167 - due to increased oxygen requirement consulted Dr. Marcus, patient treated with tocilizumab encourage awake proning and frequent position change, continue supportive care, low threshold to transfer to ICU if noted to have respiratory distress or worsening hypoxia # coagulase negative staph in 1/2 blood cultures unlikely pathogen antibiotics discontinued # JUHI creatinine normalized, s/p IV fluid continue to hold hydrochlorothiazide, and avoid nephrotoxins follow BMP # hypernatremia resolved with IV hydration # Tn-I elevation - anterior ST elevations due to HOCM with secondary repolarization abnormality; Tn-I flat; likely due to JUHI + sepsis # thrombocytopenia - suspect due to viral sepsis, repeat platelet count improving # QT prolongation, chronic - monitor, keep K>4 + Mg >2 # CAD - continue statin, ASA, metoprolol succinate # HTN - stable blood pressure, continue amlodipine, metoprolol succinate; hold HCTZ # DM2 - elevated blood sugars likely due to steroid, continue correction-dose lispro; A1c 7; hold MTF # tobacco abuse strongly advised to abstain from smoking, continue nicotine patch # schizoaffective disorder - continue clozapine, lurasidone, and lorazepam # obesity recommend low-calorie diet and exercise # VTE ppx - LMWH # code - full Quality Stroke Does the patient have a stroke diagnosis?: No VTE Prior VTE?: No VTE Risk Level:: Medical - moderate - high VTE Device Contraindication: N/A - Device Ordered VTE Drug Contraindication: N/A - Med Ordered
[2021-09-29 11:21] LABS: Glucose, Whole Blood 375 mg/dL (60-115)
[2021-09-29] MEDS: Azithromycin 500 MG TABLET PO (11:56)
[2021-09-29] MEDS: LORazepam 1 MG TABLET PO (13:24)
--- NOTE | 2021-09-29 13:25 | P.CONPL_ITS ---
History of Present Illness History of Present Illness Consult date: 09/29/21 Chief complaint: covid-19 PNA, Manuel Narrative: This is an inpatient pulmonary consultation. The patient is a 56 ye ar-old man with schizoaffective disorder, HOCM, COPD, JUDY, CAD, HTN, and DM2 who resides at a longterm, from where he was sent to the ER via EMS for 3 days of worsening dry cough and fever to 100.? I note in the EHR that he saw his community development coordinator, Dr Little, 6 days ago, and was reporting dyspnea then.? His main complaints, however, are constipation and urinary retention.? No chest pain.? No nausea or vomiting.? Endorses diffuse myalgias.? He was not vaccinated against Covid-19. In the ED, he was febrile to 102.3 and tachycardic to 98.? He was hypoxic, saturating 88% on room air.? CXR showed multilobar pneumonia.? He had a normal lactate of 1.4.? Creatinine was elevated to 1.96 from a baseline of around 1.? Platelet count was 78.? He tested positive for Covid-19 via [facility]. His oxygenation has been worsening on on 100% HF. Has been on Rendesivir and dexamethasone. Review of Systems Review of Systems: Constitutional: + Fever, No Chills ENT/Mouth: No sore throat, No Rhinorrhea, No Swallowing Difficulty Cardiovascular: No Chest Pain, + SOB, No Orthopnea, No Edema Respiratory: + Cough, No Sputum, No Wheezing, No dyspnea Gastrointestinal: No Nausea, No Vomiting, No Diarrhea, No abdominal Pain, No Hematochezia, No Melena, +constipation Genitourinary: No Dysuria, No Urinary Frequency, No Hematuria, +Urinary retention Musculoskeletal: No joint pain, + Myalgias Skin: No Skin Lesions, No rash Neuro: No Weakness, No Numbness, No Dizziness, + Headache Psych: No Anxiety/Panic, No Depression Heme/Lymph: No Bruising, No Lymphadenopathy Endocrine: No Polyuria, No Polydipsia PMFSH Past Medical History Medical History Aggression BPH (benign prostatic hyperplasia) Cardiac arrhythmia CHF (congestive heart failure) Constipation COPD (chronic obstructive pulmonary disease) Coronary artery disease Diabetes mellitus Essential hypertension HOCM (hypertrophic obstructive cardiomyopathy) Hypertension Myocardial infarction Obesity (BMI 30-39.9) JUDY (obstructive sleep apnea) Prolonged QT interval Pure hypercholesterolemia Schizoaffective disorder Smoker Family History Family History Father Medical history unknown Mother Medical history unknown Sister Alive and well Family history: reviewed and not pertinent Surgical History Surgical History History of intestinal surgery History of transurethral resection of prostate Social History Social History Household Members: Other Housing: Other Housing Other:: [facility] Do you presently have visiting nurse or other home services: Yes Alcohol intake: former Patient Tobacco Use Status: Current everyday Tobacco user Cigarettes Per Day: 7 Second Hand Smoke Exposure: No Substance Use Type: Unknown service: No Current occupational status: disabled Sexual orientation: Straight/Heterosexual Meds Allergies Allergy/AdvReac Type Severity Reaction Status Date / Time lithium [[place]] Allergy Severe TOXICITY Verified 09/19/21 11:24 thiothixene Allergy Severe SWELLING Verified 09/19/21 11:24 barium sulfate Allergy Intermediate NAUSEA & Verified 09/19/21 11:24 [BARIUM SULFATE] VOMITING haloperidol Allergy Intermediate MUSCLE Verified 09/19/21 11:24 TENSION IN LEGS benztropine Allergy Unknown benztropine Verified 09/19/21 11:24 mesylate- unknown diphenhydramine Allergy Unknown urinary Verified 09/19/21 11:24 [From Benadryl] retention fluphenazine Allergy Unknown UNKNOWN Verified 09/19/21 11:24 gabapentin [From NEURONTIN] Allergy Unknown UNKNOWN Verified 09/19/21 11:24 prolixen Allergy Unknown Unknown Uncoded 09/05/21 03:17 Active Medications: Current Medications Acetaminophen (Acetaminophen 325 Mg Tablet) 650 mg PO Q6H PRN PRN Reason: Pain, Mild (Pain Scale 1-3) Last Admin: 09/27/21 20:54 Dose: 650 mg Documented by: Albuterol Sulfate (Albuterol Sulfate 90 Mcg 8 Gm Inhaler) 4 puff INHALE Q4H PRN PRN Reason: asthma Albuterol/Ipratropium (Albuterol/Iprat 2.5/0.5mg 3 Ml Ampul.Neb) 3 ml INHALE RQ4H WHILE AWAKE [facility] Last Admin: 09/29/21 11:25 Dose: 3 ml Documented by: Amlodipine Besylate (Amlodipine Besylate 2.5 Mg Tablet) 2.5 mg PO DAILY [facility]; Protocol Last Admin: 09/29/21 09:13 Dose: 2.5 mg Documented by: Aspirin (Aspirin 81 Mg Tab.Chew) 81 mg PO DAILY [facility] Last Admin: 09/29/21 09:13 Dose: 81 mg Documented by: Atorvastatin Calcium (Atorvastatin Calcium 20 Mg Tablet) 20 mg PO BEDTIME [facility] Last Admin: 09/28/21 21:43 Dose: 20 mg Documented by: Azithromycin (Azithromycin 500 Mg Tablet) 500 mg PO Q24H [facility] Last Admin: 09/29/21 11:56 Dose: 500 mg Documented by: Clozapine (Clozapine 100 Mg Tablet) 200 mg PO DAILY@1900 [facility] Last Admin: 09/28/21 18:14 Dose: 200 mg Documented by: Clozapine (Clozapine 25 Mg Tablet) 50 mg PO DAILY@1900 [facility] Last Admin: 09/28/21 18:14 Dose: 50 mg Documented by: Dextrose (Dextrose 50 % 25 Gm/50 Ml Vial) 25 gm IVPUSH Q15M PRN; Protocol PRN Reason: per Hypoglycemia Standing Ord. Enoxaparin Sodium (Enoxaparin Sodium 40 Mg/0.4 Ml Syringe) 40 mg SUBCUT Q24H [facility] Last Admin: 09/28/21 13:06 Dose: 40 mg Documented by: Glucose (Glucose Gel 15 Gm Gel..Gram.) 15 gm PO Q15M PRN; Protocol PRN Reason: per Hypoglycemia Standing Ord. Remdesivir 100 mg/ Sodium (Chloride) 230 mls @ 115 mls/hr IV Q24H [facility] Stop: 09/30/21 17:59 Last Infusion: 09/28/21 20:19 Dose: Infused Documented by: Insulin Human Lispro (Insulin Lispro 100 Unit/Ml 3 Ml Vial) 0 unit SUBCUT QIDACHS [facility]; Protocol Last Admin: 09/29/21 11:55 Dose: 12 unit Documented by: Lorazepam (Lorazepam 1 Mg Tablet) 1 mg PO BID PRN PRN Reason: Agitation Last Admin: 09/29/21 13:24 Dose: 1 mg Documented by: Lurasidone HCl (Lurasidone Hcl 20 Mg Tablet) 20 mg PO DAILY [facility] Last Admin: 09/29/21 09:13 Dose: 20 mg Documented by: Methylprednisolone Sodium Succinate (Methylprednisolone Sod Succ 125 Mg/2 Ml Vial) 60 mg IVPUSH Q12H [facility] Last Admin: 09/29/21 13:23 Dose: 60 mg Documented by: Metoprolol Succinate (Metoprolol Succinate Er 50 Mg Tab.Er.24h) 50 mg PO BID [facility]; Protocol Last Admin: 09/29/21 09:13 Dose: 50 mg Documented by: Morphine Sulfate (Morphine Sulfate 2 Mg/Ml Cartridge) 1 mg IVPUSH Q4H PRN; Protocol PRN Reason: pain/SOB Last Admin: 09/28/21 21:42 Dose: 1 mg Documented by: Nicotine (Nicotine 7 Mg Patch.Td24) 7 mg TRANSDERMA DAILY [facility] Last Admin: 09/29/21 09:12 Dose: 7 mg Documented by: Ondansetron HCl (Ondansetron Hcl 4 Mg/2 Ml Vial) 4 mg IVPUSH Q8H PRN PRN Reason: Nausea and Vomiting Pharmacy Consult (Consult Rx Perform Med Rec) 1 each MISCELLANE ONCE PRN PRN Reason: Consult order Pharmacy Consult (Consult Rx Vancomycin Dosing) 1 each MISCELLANE DAILY PRN PRN Reason: Consult order Polyethylene Glycol (Polyethylene Glycol 3350 17 Gm Powd.Pack) 17 gm PO DAILY [facility] Last Admin: 09/29/21 09:13 Dose: 17 gm Documented by: Senna/Docusate Sodium (Sennosides/Docusate Sodium Tablet) 2 tab PO BID [facility] Last Admin: 09/29/21 09:13 Dose: 2 tab Documented by: Sodium Chloride (0.9 % Sodium Chloride Flush 3 Ml Syringe) 3 ml IVFLUSH QSHIFT [facility] Last Admin: 09/29/21 09:11 Dose: 3 ml Documented by: Vitamin D (Cholecalciferol (Vitamin D3) 25 Mcg Tablet) 25 mcg PO DAILY [facility] Last Admin: 09/29/21 09:13 Dose: 25 mcg Documented by: Home Medications Medication Instructions Recorded Confirmed Last Taken Type clozapine 100 mg tablet 200 mg PO DAILY@1900 tab 12/28/20 09/25/21 Unknown History lorazepam 1 mg tablet 1 mg PO BID PRN 09/25/21 09/25/21 Unknown History Physical Exam Vital Signs: Vital Signs: Last Vital Signs Temp 99.8 F 09/29/21 11:07 Pulse 75 09/29/21 11:27 Resp 20 09/29/21 11:31 BP 117/66 09/29/21 11:07 Pulse Ox 96 09/29/21 11:07 BMI result Body Mass Index 37.2 Const: General: alert Neck: Neck: Yes normal visual inspection, Yes full ROM and Yes no l ymphadenopathy Chest: Chest palpation & inspection: normal inspection of the chest Resp: Effort & Inspection: normal respiratory effort Auscultation: diminished lung sounds Cardio: Rate: regular rate Rhythm: regular rhythm Heart sounds: S1 normal heart sound present and S2 normal heart sound present GI: Palpation (GI): Soft to palpation and nontender Auscultation: normal [place] sounds Skin: General skin exam: rashes and/or lesions noted Results Laboratory Findings CBC and BMP: 09/26/21 06:14 09/29/21 05:58 Abnormal lab findings: Abnormal Labs 09/25/21 09/25/21 09/25/21 07:13 09:01 09:01 RBC Hgb 13.2 L Hct 41.0 L Plt Count 78 L D MPV Neut % (Auto) 83.4 H Lymph % (Auto) 10.5 L Lymph # (Auto) 0.5 L ABG pO2 at Pt Temp ABG pO2 (Temp Correct Sodium 148 H Chloride 109 H BUN 33 H Creatinine 1.93 H POC Glucose Random Glucose 167 H Calcium Ferritin 673 H Lactate Dehydrogenase 398 H Total Creatine Kinase 358 H Troponin I High Sens C-Reactive Protein 9.04 H Vancomycin Trough COVID-19 ([facility]) Positive A 09/25/21 09/25/21 09/25/21 09:01 12:01 12:18 RBC Hgb Hct Plt Count MPV Neut % (Auto) Lymph % (Auto) Lymph # (Auto) ABG pO2 at Pt Temp ABG pO2 (Temp Correct Sodium Chloride BUN Creatinine POC Glucose 188 H Random Glucose Calcium Ferritin Lactate Dehydrogenase Total Creatine Kinase Troponin I High Sens 70.9 H 66.9 H C-Reactive Protein Vancomycin Trough COVID-19 ([facility]) 09/25/21 09/25/21 09/26/21 17:28 19:59 06:14 RBC 4.29 L Hgb 12.0 L Hct 38.3 L Plt Count 84 L MPV 14.2 H Neut % (Auto) Lymph % (Auto) Lymph # (Auto) ABG pO2 at Pt Temp ABG pO2 (Temp Correct Sodium Chloride BUN Creatinine POC Glucose 360 H* 221 H Random Glucose Calcium Ferritin Lactate Dehydrogenase Total Creatine Kinase Troponin I High Sens C-Reactive Protein Vancomycin Trough COVID-19 ([facility]) 09/26/21 09/26/21 09/26/21 06:14 07:46 11:24 RBC Hgb Hct Plt Count MPV Neut % (Auto) Lymph % (Auto) Lymph # (Auto) ABG pO2 at Pt Temp ABG pO2 (Temp Correct Sodium Chloride 109 H BUN 42 H Creatinine 1.62 H POC Glucose 233 H 240 H Random Glucose 302 H D Calcium Ferritin Lactate Dehydrogenase Total Creatine Kinase Troponin I High Sens C-Reactive Protein Vancomycin Trough COVID-19 ([facility]) 09/26/21 09/26/21 09/27/21 15:57 20:13 06:20 RBC Hgb Hct Plt Count MPV Neut % (Auto) Lymph % (Auto) Lymph # (Auto) ABG pO2 at Pt Temp ABG pO2 (Temp Correct Sodium Chloride 109 H BUN 41 H Creatinine 1.53 H POC Glucose 186 H 168 H Random Glucose 220 H Calcium 7.9 L Ferritin Lactate Dehydrogenase Total Creatine Kinase Troponin I High Sens C-Reactive Protein Vancomycin Trough COVID-19 ([facility]) 09/27/21 09/27/21 09/27/21 07:19 11:41 16:12 RBC Hgb Hct Plt Count MPV Neut % (Auto) Lymph % (Auto) Lymph # (Auto) ABG pO2 at Pt Temp ABG pO2 (Temp Correct Sodium Chloride BUN Creatinine POC Glucose 183 H 194 H 326 H Random Glucose Calcium Ferritin Lactate Dehydrogenase Total Creatine Kinase Troponin I High Sens C-Reactive Protein Vancomycin Trough COVID-19 ([facility]) 09/27/21 09/28/21 09/28/21 20:21 00:45 07:22 RBC Hgb Hct Plt Count MPV Neut % (Auto) Lymph % (Auto) Lymph # (Auto) ABG pO2 at Pt Temp ABG pO2 (Temp Correct Sodium Chloride BUN Creatinine POC Glucose 229 H 209 H Random Glucose Calcium Ferritin Lactate Dehydrogenase Total Creatine Kinase Troponin I High Sens C-Reactive Protein Vancomycin Trough 3.0 L COVID-19 ([facility]) 09/28/21 09/28/21 09/28/21 12:09 15:54 20:22 RBC Hgb Hct Plt Count MPV Neut % (Auto) Lymph % (Auto) Lymph # (Auto) ABG pO2 at Pt Temp ABG pO2 (Temp Correct Sodium Chloride BUN Creatinine POC Glucose 386 H* 284 H 237 H Random Glucose Calcium Ferritin Lactate Dehydrogenase Total Creatine Kinase Troponin I High Sens C-Reactive Protein Vancomycin Trough COVID-19 ([facility]) 09/28/21 09/29/21 09/29/21 23:16 05:58 07:40 RBC Hgb Hct Plt Count MPV Neut % (Auto) Lymph % (Auto) Lymph # (Auto) ABG pO2 at Pt Temp 71 L ABG pO2 (Temp Correct 72 L Sodium Chloride 111 H BUN 52 H Creatinine POC Glucose 245 H Random Glucose 272 H Calcium Ferritin Lactate Dehydrogenase Total Creatine Kinase Troponin I High Sens C-Reactive Protein 8.60 H Vancomycin Trough COVID-19 ([facility]) 09/29/21 11:09 RBC Hgb Hct Plt Count MPV Neut % (Auto) Lymph % (Auto) Lymph # (Auto) ABG pO2 at Pt Temp ABG pO2 (Temp Correct Sodium Chloride BUN Creatinine POC Glucose 375 H* Random Glucose Calcium Ferritin Lactate Dehydrogenase Total Creatine Kinase Troponin I High Sens C-Reactive Protein Vancomycin Trough COVID-19 ([facility]) Microbiology: Microbiology 09/25/21 09:01 Blood - Venous Blood Culture - Preliminary No growth after 48 hours. 09/25/21 09:09 Blood - Venous Blood Culture - Final Coag negative Staphylococcus Assessment and Plan (1) Acute respiratory failure with hypoxia: Status: Acute (2) COVID-19: Status: Acute (3) Bacteremia: Status: Acute Continue Rendisivir, solumedrol Start Tociluzimab IV x 1 Continue vanco Awake proning HF to keep pox >90% Procedures Date of Service Date of Service: 09/29/21
[2021-09-29] MEDS: Enoxaparin Sodium 40 MG/0.4 ML SYRINGE SUBCUT (13:34)
[2021-09-29] MEDS: Remdesivir 100 MG in 0.9 % Sodium Chloride 230 ML 115 MG IV (15:00)
--- NOTE | 2021-09-29 15:07 | PC.NURSE ---
1100 str cath for for 950ml Was unable to void. Dr Stover aware.
[2021-09-29 16:05] LABS: Glucose, Whole Blood 255 mg/dL (60-115)
[2021-09-29] MEDS: cloZAPine 25 MG TABLET 50 MG PO (18:28)
[2021-09-29] MEDS: cloZAPine 100 MG TABLET 200 MG PO (18:28)
[2021-09-29 19:48] LABS: Glucose, Whole Blood 321 mg/dL (60-115)
[2021-09-29] MEDS: Atorvastatin Calcium 20 MG TABLET PO (21:40)
[2021-09-30] VITALS (17 sets, daily range): BP systolic 142–155; BP diastolic 69–88; PULSE 76–99; RESP 18–25; TEMP 36.6–37.1; O2SAT 91–98
[2021-09-30] MEDS: methylPREDNISolone Sod Succ 125 MG/2 ML VIAL 60 MG IVPUSH ×3 (02:10→18:33)
[2021-09-30] MEDS: LORazepam 1 MG TABLET PO (02:11)
--- NOTE | 2021-09-30 05:22 | PC.NURSE ---
overnight - NRB added to high flow 55L/100% for desat to 69% & increased work of breathing, tachypnea rr 32 & accy muscles with quick recovery to 91-92% sat on both. Dr. Luong notified. -
[2021-09-30 07:37] LABS: Glucose, Whole Blood 285 mg/dL (60-115)
[2021-09-30] MEDS: Albuterol/Iprat 2.5/0.5MG 3 ML AMPUL.NEB INHALE ×4 (07:46→19:04)
[2021-09-30] MEDS: Insulin Lispro 100 UNIT/ML 3 ML VIAL SUBCUT ×4 (08:21→21:28)
[2021-09-30] MEDS: Metoprolol Succinate ER 50 MG TAB.ER.24H PO ×2 (08:21→20:24)
[2021-09-30] MEDS: Aspirin 81 MG TAB.CHEW PO (08:22)
[2021-09-30] MEDS: Cholecalciferol (Vitamin D3) 25 MCG TABLET PO (08:22)
[2021-09-30] MEDS: 0.9 % Sodium Chloride Flush 3 ML SYRINGE IVFLUSH ×3 (08:22→20:25)
[2021-09-30] MEDS: amLODIPine Besylate 2.5 MG TABLET PO (08:22)
[2021-09-30] MEDS: Lurasidone HCl 20 MG TABLET PO (08:22)
[2021-09-30] MEDS: Sennosides/Docusate Sodium TABLET 2 TAB PO (08:22)
--- NOTE | 2021-09-30 11:00 | HO.PM.IMPN ---
Subjective Subjective Date of Service: 09/30/21 Interval History: Doing better this morning appears less short of breath, no overnight acute issues, no fevers no chills, difficult to obtain detail history due to underlying psychiatric history. Review of Systems Review of Systems: Yes all other systems are reviewed and are negative Physical Exam Vital Signs: Vital Signs: Last Vital Signs Temp 98.3 F 09/30/21 08:00 Pulse 84 09/30/21 08:22 Resp 18 09/30/21 10:42 BP 149/88 H 09/30/21 08:22 Pulse Ox 95 09/30/21 08:00 BMI result Body Mass Index 37.2 Gen:? Awake alert resting comfortably, on high-flow oxygen Neck: supple, no JVD Lungs: bilateral scattered rhonchi, diminished breath sound, no respiratory distress Heart: regular rate and rhythm, no murmurs Abd: soft, non-tender, non-distended, bowel sounds audible Ext: no edema Skin: warm/well-perfused Neuro: alert and oriented x3, no focal findings Psych: impaired insight Objective Data Active Medications Acetaminophen (Acetaminophen 325 Mg Tablet) 650 mg PO Q6H PRN PRN Reason: Pain, Mild (Pain Scale 1-3) Last Admin: 09/27/21 20:54 Dose: 650 mg Documented by: MYA Albuterol Sulfate (Albuterol Sulfate 90 Mcg 8 Gm Inhaler) 4 puff INHALE Q4H PRN PRN Reason: asthma Albuterol/Ipratropium (Albuterol/Iprat 2.5/0.5mg 3 Ml Ampul.Neb) 3 ml INHALE RQ4H WHILE AWAKE COUNTS INCLUDE 234 BEDS AT THE [facility] Last Admin: 09/30/21 10:41 Dose: 3 ml Documented by: JOHANA Amlodipine Besylate (Amlodipine Besylate 2.5 Mg Tablet) 2.5 mg PO DAILY COUNTS INCLUDE 234 BEDS AT THE [facility]; Protocol Last Admin: 09/30/21 08:22 Dose: 2.5 mg Documented by: PHILLIP Aspirin (Aspirin 81 Mg Tab.Chew) 81 mg PO DAILY COUNTS INCLUDE 234 BEDS AT THE [facility] Last Admin: 09/30/21 08:22 Dose: 81 mg Documented by: PHILLIP Atorvastatin Calcium (Atorvastatin Calcium 20 Mg Tablet) 20 mg PO BEDTIME COUNTS INCLUDE 234 BEDS AT THE [facility] Last Admin: 09/29/21 21:40 Dose: 20 mg Documented by: JARRET Azithromycin (Azithromycin 500 Mg Tablet) 500 mg PO Q24H COUNTS INCLUDE 234 BEDS AT THE [facility] Last Admin: 09/29/21 11:56 Dose: 500 mg Documented by: LETITIA Clozapine (Clozapine 100 Mg Tablet) 200 mg PO DAILY@1900 COUNTS INCLUDE 234 BEDS AT THE [facility] Last Admin: 09/29/21 18:28 Dose: 200 mg Documented by: LETITIA Clozapine (Clozapine 25 Mg Tablet) 50 mg PO DAILY@1900 COUNTS INCLUDE 234 BEDS AT THE [facility] Last Admin: 09/29/21 18:28 Dose: 50 mg Documented by: LETITIA Dextrose (Dextrose 50 % 25 Gm/50 Ml Vial) 25 gm IVPUSH Q15M PRN; Protocol PRN Reason: per Hypoglycemia Standing Ord. Enoxaparin Sodium (Enoxaparin Sodium 40 Mg/0.4 Ml Syringe) 40 mg SUBCUT Q24H COUNTS INCLUDE 234 BEDS AT THE [facility] Last Admin: 09/29/21 13:34 Dose: 40 mg Documented by: LETITIA Glucose (Glucose Gel 15 Gm Gel..Gram.) 15 gm PO Q15M PRN; Protocol PRN Reason: per Hypoglycemia Standing Ord. Remdesivir 100 mg/ Sodium (Chloride) 230 mls @ 115 mls/hr IV Q24H COUNTS INCLUDE 234 BEDS AT THE [facility] Stop: 09/30/21 17:59 Last Infusion: 09/29/21 17:16 Dose: 0 mls/hr Documented by: LETITIA Insulin Human Lispro (Insulin Lispro 100 Unit/Ml 3 Ml Vial) 0 unit SUBCUT QIDACHS COUNTS INCLUDE 234 BEDS AT THE [facility]; Protocol Last Admin: 09/30/21 08:21 Dose: 8 unit Documented by: PHILLIP Lorazepam (Lorazepam 1 Mg Tablet) 1 mg PO BID PRN PRN Reason: Agitation Last Admin: 09/30/21 02:11 Dose: 1 mg Documented by: JARRET Lurasidone HCl (Lurasidone Hcl 20 Mg Tablet) 20 mg PO DAILY COUNTS INCLUDE 234 BEDS AT THE [facility] Last Admin: 09/30/21 08:22 Dose: 20 mg Documented by: PHILLIP Methylprednisolone Sodium Succinate (Methylprednisolone Sod Succ 125 Mg/2 Ml Vial) 60 mg IVPUSH Q12H COUNTS INCLUDE 234 BEDS AT THE [facility] Last Admin: 09/30/21 02:10 Dose: 60 mg Documented by: JARRET Metoprolol Succinate (Metoprolol Succinate Er 50 Mg Tab.Er.24h) 50 mg PO BID COUNTS INCLUDE 234 BEDS AT THE [facility]; Protocol Last Admin: 09/30/21 08:21 Dose: 50 mg Documented by: PHILLIP Morphine Sulfate (Morphine Sulfate 2 Mg/Ml Cartridge) 1 mg IVPUSH Q4H PRN; Protocol PRN Reason: pain/SOB Last Admin: 09/28/21 21:42 Dose: 1 mg Documented by: ARDEN Nicotine (Nicotine 7 Mg Patch.Td24) 7 mg TRANSDERMA DAILY COUNTS INCLUDE 234 BEDS AT THE [facility] Last Admin: 09/30/21 09:24 Dose: Not Given Documented by: PHILILP Non-Admin Reason: Patient Refused Ondansetron HCl (Ondansetron Hcl 4 Mg/2 Ml Vial) 4 mg IVPUSH Q8H PRN PRN Reason: Nausea and Vomiting Pharmacy Consult (Consult Rx Perform Med Rec) 1 each MISCELLANE ONCE PRN PRN Reason: Consult order Pharmacy Consult (Consult Rx Vancomycin Dosing) 1 each MISCELLANE DAILY PRN PRN Reason: Consult order Polyethylene Glycol (Polyethylene Glycol 3350 17 Gm Powd.Pack) 17 gm PO DAILY COUNTS INCLUDE 234 BEDS AT THE [facility] Last Admin: 09/30/21 09:24 Dose: Not Given Documented by: PHILLIP Non-Admin Reason: Patient Refused Senna/Docusate Sodium (Sennosides/Docusate Sodium Tablet) 2 tab PO BID COUNTS INCLUDE 234 BEDS AT THE [facility] Last Admin: 09/30/21 08:22 Dose: 2 tab Documented by: PHILLIP Sodium Chloride (0.9 % Sodium Chloride Flush 3 Ml Syringe) 3 ml IVFLUSH QSHIFT COUNTS INCLUDE 234 BEDS AT THE [facility] Last Admin: 09/30/21 08:22 Dose: 3 ml Documented by: PHILLIP Vitamin D (Cholecalciferol (Vitamin D3) 25 Mcg Tablet) 25 mcg PO DAILY COUNTS INCLUDE 234 BEDS AT THE [facility] Last Admin: 09/30/21 08:22 Dose: 25 mcg Documented by: PHILLIP Labs CBC & Chem 7: 09/26/21 06:14 09/29/21 05:58 Labs: Laboratory Results - last 24 hr 09/29/21 09/29/21 09/29/21 11:09 16:00 19:42 POC Glucose 375 H* 255 H 321 H 09/30/21 07:26 POC Glucose 285 H Assessment and Plan (1) Acute respiratory failure with hypoxia: Status: Acute (2) COVID-19: Status: Acute (3) JUHI (acute kidney injury): Status: Acute (4) Diabetes mellitus: Status: Acute Assessment and Plan: 56 year-old male care home resident with schizoaffective disorder, HOCM, COPD, JUDY, CAD, HTN, and DM2 presenting with at least 3 days of cough, fever, and dyspnea.? Found to be septic and hypoxic from Covid-19 pneumonia. # acute hypoxic respiratory failure due to Covid-19 pneumonia/ viral sepsis, COPD exacerbation - feeling better this morning, no respiratory distress, finger oximetry 95% c ? continue IV remdesivir, IV Solu Medrol, DuoNeb scheduled and as needed ,po azithromycin, D-dimer 167, CRP 8.60 - seen by Dr. Marcus, s/p iv tocilizumab on 09/29 ? encourage awake proning and frequent position change, continue supportive care # coagulase negative staph in 1/2 blood cultures unlikely pathogen antibiotics discontinued # JUHI creatinine normalized, s/p IV fluid continue to hold hydrochlorothiazide, and avoid nephrotoxins follow BMP # hypernatremia resolved with IV hydration # Tn-I elevation - anterior ST elevations due to HOCM with secondary repolarization abnormality; Tn-I flat; likely due to JUHI + sepsis # thrombocytopenia - suspect due to viral sepsis, repeat platelet count improving, repeat CBC at a.m. # QT prolongation, chronic - monitor, keep K>4 + Mg >2 # CAD - continue statin, ASA, metoprolol succinate # HTN - stable blood pressure, continue amlodipine, metoprolol succinate; hold HCTZ # DM2 - elevated blood sugars likely due to steroid, continue correction-dose lispro; will add Lantus 10 units at bedtime, A1c 7; metformin on home # tobacco abuse strongly advised to abstain from smoking, continue nicotine patch # schizoaffective disorder - continue clozapine, lurasidone, and lorazepam # obesity recommend low-calorie diet and exercise # VTE ppx - LMWH # code - full Quality Stroke Does the patient have a stroke diagnosis?: No VTE Prior VTE?: No VTE Risk Level:: Medical - moderate - high VTE Device Contraindication: N/A - Device Ordered VTE Drug Contraindication: N/A - Med Ordered
[2021-09-30 11:21] LABS: Glucose, Whole Blood 364 mg/dL (60-115)
--- NOTE | 2021-09-30 12:11 | PM.PNPUL ---
Subjective Subjective Date of Service: 09/30/21 Interval history: The patient was seen on insulin. Currently sleeping still requiring non-rebreather in addition to 100% high-flow. Status post I will 6 inhibitor. Will increase his steroids at this time. The Objective Data Labs CBC & Chem 7: 09/26/21 06:14 09/29/21 05:58 Labs: Laboratory Results - last 24 hr 09/29/21 09/29/21 09/30/21 16:00 19:42 07:26 POC Glucose 255 H 321 H 285 H 09/30/21 11:12 POC Glucose 364 H* Microbiology Microbiology Results: Microbiology 09/25/21 09:01 Blood - Venous Blood Culture - Final No growth after 5 days. 09/25/21 09:09 Blood - Venous Blood Culture - Final Coag negative Staphylococcus Review of Systems Review of Systems Yes Unobtainable due to mental status Physical Exam Vital Signs: Vital Signs: Last Vital Signs Temp 98.6 F 09/30/21 11:37 Pulse 88 09/30/21 11:37 Resp 20 09/30/21 11:37 BP 155/69 H 09/30/21 11:37 Pulse Ox 98 09/30/21 11:37 BMI result Body Mass Index 37.2 Const: General: alert Neck: Neck: Yes normal visual inspection, Yes full ROM and Yes no lymphadenopathy Chest: Chest palpation & inspection: normal inspection of the chest Resp: Auscultation: diminished lung sounds Cardio: Rate: regular rate Rhythm: regular rhythm Heart sounds: S1 normal heart sound present and S2 normal heart sound present Skin: General skin exam: rashes and/or lesions noted Procedures Date of Service Date of Service: 09/30/21 Assessment and Plan Assessment and plan (1) Acute respiratory failure with hypoxia: Status: Acute (2) COVID-19: Status: Acute (3) Bacteremia: Status: Acute (4) COPD (chronic obstructive pulmonary disease): Problem details: Pulmonary function test on 08/26/2021, did not show any significant obstructive or restrictive pulmonary disorder. However decreased FVC, FEV1 and also moderate decrease in diffusion capacity, indicates that he probably does have some pulmonary emphysema, And because of his poor understanding he did not perform adequate efforts. Anyway he does not need to use any bronchodilator inhalers. Most important thing for him is to quit smoking. Status: Acute Assessment and Plan: Increase solumedrol q6 continue vaco respiratory therapy Awake proning Time Spent With Patient Time: Total time spent is greater than 50% in coordination of care (as documented) at patient's floor/unit and/or counseling patient: Time with patient: 15 - 24 minutes Progress Note: Quality Stroke Does the patient have a stroke diagnosis?: No
[2021-09-30] MEDS: Enoxaparin Sodium 40 MG/0.4 ML SYRINGE SUBCUT (14:11)
[2021-09-30] MEDS: Azithromycin 500 MG TABLET PO (14:11)
[2021-09-30 16:12] LABS: Glucose, Whole Blood 327 mg/dL (60-115)
[2021-09-30] MEDS: Remdesivir 100 MG in 0.9 % Sodium Chloride 230 ML 115 MG IV (17:05)
[2021-09-30] MEDS: cloZAPine 100 MG TABLET 200 MG PO (18:32)
[2021-09-30] MEDS: cloZAPine 25 MG TABLET 50 MG PO (18:32)
[2021-09-30] MEDS: Famotidine 20 MG TABLET PO (20:24)
[2021-09-30] MEDS: Atorvastatin Calcium 20 MG TABLET PO (20:24)
[2021-09-30 20:44] LABS: Glucose, Whole Blood 344 mg/dL (60-115)
[2021-09-30] MEDS: Insulin Glargine,Hum.rec.anlog 100 UNIT/ML 10 ML VIAL 10 UNIT SUBCUT (21:28)
[2021-10-01] VITALS (16 sets, daily range): BP systolic 109–181; BP diastolic 71–97; PULSE 63–93; RESP 18–23; TEMP 36.1–37.1; O2SAT 90–98
[2021-10-01] MEDS: methylPREDNISolone Sod Succ 125 MG/2 ML VIAL 60 MG IVPUSH ×3 (00:36→12:11)
[2021-10-01] MEDS: Albuterol/Iprat 2.5/0.5MG 3 ML AMPUL.NEB INHALE ×4 (07:44→21:43)
[2021-10-01 07:49] LABS: Glucose, Whole Blood 308 mg/dL (60-115)
[2021-10-01] MEDS: Cholecalciferol (Vitamin D3) 25 MCG TABLET PO (08:18)
[2021-10-01] MEDS: Sennosides/Docusate Sodium TABLET 2 TAB PO ×2 (08:19→20:11)
[2021-10-01] MEDS: Lurasidone HCl 20 MG TABLET PO (08:19)
[2021-10-01] MEDS: Aspirin 81 MG TAB.CHEW PO (08:19)
[2021-10-01] MEDS: Famotidine 20 MG TABLET PO ×2 (08:20→20:11)
[2021-10-01] MEDS: amLODIPine Besylate 2.5 MG TABLET PO (08:20)
[2021-10-01] MEDS: Metoprolol Succinate ER 50 MG TAB.ER.24H PO ×2 (08:20→20:08)
[2021-10-01] MEDS: Insulin Lispro 100 UNIT/ML 3 ML VIAL SUBCUT ×4 (08:21→20:15)
[2021-10-01] MEDS: polyethylene glycoL 3350 17 GM POWD.PACK PO (08:25)
[2021-10-01 08:34] LABS: Anion Gap 12 (12-20); Blood Urea Nitrogen 46 mg/dL (9-16); Calcium 8.9 mg/dL (8.4-10.2); Carbon Dioxide 27 mmol/L (22-29); Chloride 113 mmol/L (96-108); Creatinine Clr Calc Pharmacy 76.9; Estimated Glomerular Filt Rate 58; Glucose Random 315 mg/dL (60-115); Potassium 5.3 mmol/L (3.3-5.1); Sodium 147 mmol/L (135-145)
[2021-10-01 08:37] LABS: Hematocrit 39.8 % (42.0-52.0); Hemoglobin 12.5 g/dl (14.0-18.0); Mean Corpuscular HGB Conc 31.4 g/dl (31.0-36.0); Mean Corpuscular Hemoglobin 28.2 pg (27.0-33.0); Mean Corpuscular Volume 89.8 fL (80.0-98.0); Mean Platelet Volume 12.2 fL (9.4-12.4); NRBC Pct Auto 0.2 /100WBC (0.0-0.2); Red Blood Count 4.43 X10*6/uL (4.60-5.80); Red Cell Distribution Width 15.1 % (11.0-16.0); White Blood Count 8.3 X10*3/uL (4.8-10.8)
[2021-10-01 08:38] LABS: Platelet Count 179 X10*3/uL (160-400)
[2021-10-01 11:44] LABS: Glucose, Whole Blood 355 mg/dL (60-115)
[2021-10-01] MEDS: 0.9 % Sodium Chloride Flush 3 ML SYRINGE IVFLUSH ×3 (12:11→20:15)
--- NOTE | 2021-10-01 12:52 | P.PNIM_ITS ---
Subjective Subjective Date of Service: 10/01/21 Interval History: Feeling better this morning, oxygen weaned down to high-flow 50 L/80%, denies chest pain, no shortness of breath no fevers, no chills ,no acute overnight issues. Review of Systems Review of Systems: Yes all other systems are reviewed and are negative Physical Exam Vital Signs: Vital Signs: Last Vital Signs Temp 98 F 10/01/21 11:32 Pulse 86 10/01/21 11:32 Resp 18 10/01/21 11:32 BP 132/97 H 10/01/21 11:32 Pulse Ox 95 10/01/21 11:32 BMI result Body Mass Index 37.2 Gen:? Awake alert resting comfortably, on high-flow oxygen Neck: supple, no JVD Lungs: Clear to auscultation bilaterally, diminished breath sound, no respiratory distress Heart: regular rate and rhythm, no murmurs Abd: soft, non-tender, non-distended, bowel sounds audible Ext: no edema Skin: warm/well-perfused Neuro: alert and oriented x3, no focal findings Psych: impaired insight Objective Data Active Medications Acetaminophen (Acetaminophen 325 Mg Tablet) 650 mg PO Q6H PRN PRN Reason: Pain, Mild (Pain Scale 1-3) Last Admin: 09/27/21 20:54 Dose: 650 mg Documented by: MYA Al Hydroxide/Mg Hydroxide (Magnesium Hydrox/Alum Hydrox 30 Ml Oral.Susp) 30 ml PO Q6H PRN PRN Reason: heart burn Albuterol Sulfate (Albuterol Sulfate 90 Mcg 8 Gm Inhaler) 4 puff INHALE Q4H PRN PRN Reason: asthma Albuterol/Ipratropium (Albuterol/Iprat 2.5/0.5mg 3 Ml Ampul.Neb) 3 ml INHALE RQ4H WHILE AWAKE [facility] Last Admin: 10/01/21 11:24 Dose: 3 ml Documented by: ELANA Amlodipine Besylate (Amlodipine Besylate 2.5 Mg Tablet) 2.5 mg PO DAILY [facility]; Protocol Last Admin: 10/01/21 08:20 Dose: 2.5 mg Documented by: HOLDEN Aspirin (Aspirin 81 Mg Tab.Chew) 81 mg PO DAILY [facility] Last Admin: 10/01/21 08:19 Dose: 81 mg Documented by: HOLDEN Atorvastatin Calcium (Atorvastatin Calcium 20 Mg Tablet) 20 mg PO BEDTIME [facility] Last Admin: 09/30/21 20:24 Dose: 20 mg Documented by: BERNICE Azithromycin (Azithromycin 500 Mg Tablet) 500 mg PO Q24H [facility] Last Admin: 09/30/21 14:11 Dose: 500 mg Documented by: PHILLIP Clozapine (Clozapine 100 Mg Tablet) 200 mg PO DAILY@1900 [facility] Last Admin: 09/30/21 18:32 Dose: 200 mg Documented by: PHILLIP Clozapine (Clozapine 25 Mg Tablet) 50 mg PO DAILY@1900 [facility] Last Admin: 09/30/21 18:32 Dose: 50 mg Documented by: PHILLIP Dextrose (Dextrose 50 % 25 Gm/50 Ml Vial) 25 gm IVPUSH Q15M PRN; Protocol PRN Reason: per Hypoglycemia Standing Ord. Enoxaparin Sodium (Enoxaparin Sodium 40 Mg/0.4 Ml Syringe) 40 mg SUBCUT Q24H [facility] Last Admin: 09/30/21 14:11 Dose: 40 mg Documented by: PHILLIP Famotidine (Famotidine 20 Mg Tablet) 20 mg PO BID [facility] Last Admin: 10/01/21 08:20 Dose: 20 mg Documented by: HOLDEN Glucose (Glucose Gel 15 Gm Gel..Gram.) 15 gm PO Q15M PRN; Protocol PRN Reason: per Hypoglycemia Standing Ord. Insulin Glargine (Insulin Glargine,Hum.Rec.Anlog 100 Unit/Ml 10 Ml Vial) 10 unit SUBCUT BEDTIME [facility] Last Admin: 09/30/21 21:28 Dose: 10 unit Documented by: BERNICE Insulin Human Lispro (Insulin Lispro 100 Unit/Ml 3 Ml Vial) 0 unit SUBCUT QIDACHS [facility]; Protocol Last Admin: 10/01/21 12:11 Dose: 12 unit Documented by: HOLDEN Lurasidone HCl (Lurasidone Hcl 20 Mg Tablet) 20 mg PO DAILY [facility] Last Admin: 10/01/21 08:19 Dose: 20 mg Documented by: HOLDEN Methylprednisolone Sodium Succinate (Methylprednisolone Sod Succ 125 Mg/2 Ml Vial) 60 mg IVPUSH Q6H [facility] Last Admin: 10/01/21 12:11 Dose: 60 mg Documented by: HOLDEN Metoprolol Succinate (Metoprolol Succinate Er 50 Mg Tab.Er.24h) 50 mg PO BID [facility]; Protocol Last Admin: 10/01/21 08:20 Dose: 50 mg Documented by: HOLDEN Morphine Sulfate (Morphine Sulfate 2 Mg/Ml Cartridge) 1 mg IVPUSH Q4H PRN; Protocol PRN Reason: pain/SOB Last Admin: 09/28/21 21:42 Dose: 1 mg Documented by: ARDEN Nicotine (Nicotine 7 Mg Patch.Td24) 7 mg TRANSDERMA DAILY [facility] Last Admin: 10/01/21 08:25 Dose: Not Given Documented by: HOLDEN Non-Admin Reason: Patient Refused Ondansetron HCl (Ondansetron Hcl 4 Mg/2 Ml Vial) 4 mg IVPUSH Q8H PRN PRN Reason: Nausea and Vomiting Pharmacy Consult (Consult Rx Perform Med Rec) 1 each MISCELLANE ONCE PRN PRN Reason: Consult order Pharmacy Consult (Consult Rx Vancomycin Dosing) 1 each MISCELLANE DAILY PRN PRN Reason: Consult order Polyethylene Glycol (Polyethylene Glycol 3350 17 Gm Powd.Pack) 17 gm PO DAILY [facility] Last Admin: 10/01/21 08:25 Dose: 17 gm Documented by: HOLDEN Senna/Docusate Sodium (Sennosides/Docusate Sodium Tablet) 2 tab PO BID [facility] Last Admin: 10/01/21 08:19 Dose: 2 tab Documented by: HOLDEN Sodium Chloride (0.9 % Sodium Chloride Flush 3 Ml Syringe) 3 ml IVFLUSH QSHIFT [facility] Last Admin: 10/01/21 12:11 Dose: 3 ml Documented by: HOLDEN Vitamin D (Cholecalciferol (Vitamin D3) 25 Mcg Tablet) 25 mcg PO DAILY [facility] Last Admin: 10/01/21 08:18 Dose: 25 mcg Documented by: HOLDEN Labs CBC & Chem 7: 10/01/21 07:40 10/01/21 07:40 Labs: Laboratory Results - last 24 hr 09/30/21 09/30/21 10/01/21 16:09 20:27 07:40 MCV 89.8 MCH 28.2 MCHC 31.4 RDW 15.1 Plt Count 179 D MPV 12.2 Absolute Nucleated RBC 0.020 H Nucleated RBC % (auto) 0.2 Anion Gap Estim Creat Clear Calc Estimated GFR POC Glucose 327 H 344 H Random Glucose Calcium 10/01/21 10/01/21 10/01/21 07:40 07:46 11:31 MCV MCH MCHC RDW Plt Count MPV Absolute Nucleated RBC Nucleated RBC % (auto) Anion Gap 12 Estim Creat Clear Calc 76.9 Estimated GFR 58 POC Glucose 308 H 355 H* Random Glucose 315 H Calcium 8.9 Microbiology Microbiology Results: Microbiology 09/25/21 09:01 Blood Culture - Final Blood - Venous No growth after 5 days. Assessment and Plan (1) Acute respiratory failure with hypoxia: Status: Acute (2) COVID-19: Status: Acute (3) JUHI (acute kidney injury): Status: Acute (4) Diabetes mellitus: Status: Acute Assessment and Plan: 56 [facility] male [facility] resident with schizoaffective disorder, HOCM, COPD, JUDY, CAD, HTN, and DM2 presenting with at least 3 days of cough, fever, and dyspnea.? Found to be septic and hypoxic from Covid-19 pneumonia. # acute hypoxic respiratory failure due to Covid-19 pneumonia/ viral sepsis, COPD exacerbation - no acute overnight events, feeling better , no respiratory distress, finger oximetry 95% on high-flow oxygen, wean oxygen as tolerated ? s/p IV remdesivir,on IV Solu Medrol 60mg q6h , DuoNeb scheduled and as needed ,po azithromycin, will wean IV steroids to 40 mg q.8 hours D-dimer 167, CRP 8.60 - seen by Dr. Marcus, s/p iv tocilizumab on 09/29 ? encourage awake proning and frequent position change, continue supportive care # coagulase negative staph in 1/2 blood cultures unlikely pathogen antibiotics discontinued # JUHI creatinine normalized, s/p IV fluid continue to hold hydrochlorothiazide, and avoid nephrotoxins follow BMP # hypernatremia /mild hyperkalemia and hyperchloremia Push by mouth fluids follow labs # Tn-I elevation - anterior ST elevations due to HOCM with secondary repolarization abnormality; Tn-I flat; likely due to JUHI + sepsis # thrombocytopenia - suspect due to viral sepsis, repeat platelet count normalized # QT prolongation, chronic - monitor, keep K>4 + Mg >2 # CAD - continue statin, ASA, metoprolol succinate # HTN - stable blood pressure, continue amlodipine, metoprolol succinate; hold HCTZ # DM2 - elevated blood sugars likely due to steroid, continue correction-dose lispro; Lantus 10 units at bedtime, A1c 7; takes metformin at home, wean steroids # tobacco abuse strongly advised to abstain from smoking, continue nicotine patch # schizoaffective disorder - continue clozapine, lurasidone, and lorazepam # obesity recommend low-calorie diet and exercise # VTE ppx - LMWH # code - full Quality Stroke Does the patient have a stroke diagnosis?: No VTE Prior VTE?: No VTE Risk Level:: Medical - moderate - high VTE Device Contraindication: N/A - Device Ordered VTE Drug Contraindication: N/A - Med Ordered
[2021-10-01 13:19] LABS: Neut%MD 88.6 %; Neutrophils Absolute Auto 7.8 x10*3/uL (2.0-8.3); WBCANC 8.8 X10*3/uL
[2021-10-01] MEDS: Enoxaparin Sodium 40 MG/0.4 ML SYRINGE SUBCUT (14:20)
[2021-10-01] MEDS: Azithromycin 500 MG TABLET PO (14:20)
[2021-10-01 16:05] LABS: Glucose, Whole Blood 370 mg/dL (60-115)
[2021-10-01] MEDS: cloZAPine 25 MG TABLET 50 MG PO (18:34)
[2021-10-01] MEDS: cloZAPine 100 MG TABLET 200 MG PO (18:35)
[2021-10-01 20:09] LABS: Glucose, Whole Blood 406 mg/dL (60-115)
[2021-10-01] MEDS: Atorvastatin Calcium 20 MG TABLET PO (20:11)
[2021-10-01] MEDS: Insulin Glargine,Hum.rec.anlog 100 UNIT/ML 10 ML VIAL 10 UNIT SUBCUT (20:12)
[2021-10-01] MEDS: methylPREDNISolone Sod Succ 40 MG/ML VIAL IVPUSH (20:12)
[2021-10-02] VITALS (17 sets, daily range): BP systolic 145–190; BP diastolic 78–98; PULSE 66–76; RESP 17–24; TEMP 36.2–36.7; O2SAT 91–96
[2021-10-02] MEDS: methylPREDNISolone Sod Succ 40 MG/ML VIAL IVPUSH ×3 (04:10→20:39)
[2021-10-02 07:35] LABS: Anion Gap 13 (12-20); Blood Urea Nitrogen 47 mg/dL (9-16); Calcium 9.3 mg/dL (8.4-10.2); Carbon Dioxide 28 mmol/L (22-29); Chloride 109 mmol/L (96-108); Estimated Glomerular Filt Rate 49; Glucose Random 317 mg/dL (60-115); Potassium 5.2 mmol/L (3.3-5.1); Sodium 145 mmol/L (135-145)
[2021-10-02 07:52] LABS: Glucose, Whole Blood 272 mg/dL (60-115)
[2021-10-02] MEDS: Albuterol/Iprat 2.5/0.5MG 3 ML AMPUL.NEB INHALE ×4 (08:00→20:19)
[2021-10-02] MEDS: Lurasidone HCl 20 MG TABLET PO (08:22)
[2021-10-02] MEDS: 0.9 % Sodium Chloride Flush 3 ML SYRINGE IVFLUSH ×4 (08:22→20:40)
[2021-10-02] MEDS: Aspirin 81 MG TAB.CHEW PO (08:23)
[2021-10-02] MEDS: Metoprolol Succinate ER 50 MG TAB.ER.24H PO ×2 (08:23→20:38)
[2021-10-02] MEDS: Sennosides/Docusate Sodium TABLET 2 TAB PO (08:24)
[2021-10-02] MEDS: Cholecalciferol (Vitamin D3) 25 MCG TABLET PO (08:25)
[2021-10-02] MEDS: Famotidine 20 MG TABLET PO ×2 (08:25→20:39)
[2021-10-02] MEDS: amLODIPine Besylate 2.5 MG TABLET PO ×2 (08:25→11:55)
[2021-10-02] MEDS: polyethylene glycoL 3350 17 GM POWD.PACK PO (08:25)
[2021-10-02] MEDS: Insulin Lispro 100 UNIT/ML 3 ML VIAL SUBCUT ×4 (08:27→20:40)
--- NOTE | 2021-10-02 11:45 | HO.PM.IMPN ---
Subjective Subjective Date of Service: 10/02/21 Interval History: Feeling better, denies shortness of breath, no nausea no vomiting, no abdominal pain no other acute issues overnight, no fevers no chills, decreased oxygen requirements placed on 40 L of high-flow nasal cannula, finger oximetry 91% Review of Systems Review of Systems: Yes all other systems are reviewed and are negative Physical Exam Vital Signs: Vital Signs: Last Vital Signs Temp 98.1 F 10/02/21 11:09 Pulse 75 10/02/21 11:09 Resp 24 H 10/02/21 11:09 BP 164/78 H 10/02/21 11:09 Pulse Ox 94 10/02/21 11:09 BMI result Body Mass Index 37.2 Gen:? Awake alert resting comfortably, on high-flow oxygen Neck: supple, no JVD Lungs:? Clear to auscultation bilaterally, diminished breath sound, no rhonchi, no respiratory distress Heart: regular rate and rhythm, no murmurs Abd: soft, non-tender, non-distended, bowel sounds audible Ext: no edema Skin: warm/well-perfused Neuro: alert and oriented x3, no focal findings Psych: impaired insight Objective Data Active Medications Acetaminophen (Acetaminophen 325 Mg Tablet) 650 mg PO Q6H PRN PRN Reason: Pain, Mild (Pain Scale 1-3) Last Admin: 09/27/21 20:54 Dose: 650 mg Documented by: MYA Al Hydroxide/Mg Hydroxide (Magnesium Hydrox/Alum Hydrox 30 Ml Oral.Susp) 30 ml PO Q6H PRN PRN Reason: heart burn Albuterol Sulfate (Albuterol Sulfate 90 Mcg 8 Gm Inhaler) 4 puff INHALE Q4H PRN PRN Reason: asthma Albuterol/Ipratropium (Albuterol/Iprat 2.5/0.5mg 3 Ml Ampul.Neb) 3 ml INHALE RQ4H WHILE AWAKE [facility] Last Admin: 10/02/21 08:00 Dose: 3 ml Documented by: ELANA Amlodipine Besylate (Amlodipine Besylate 2.5 Mg Tablet) 2.5 mg PO DAILY [facility]; Protocol Last Admin: 10/02/21 08:25 Dose: 2.5 mg Documented by: HOLDEN Aspirin (Aspirin 81 Mg Tab.Chew) 81 mg PO DAILY [facility] Last Admin: 10/02/21 08:23 Dose: 81 mg Documented by: HOLDEN Atorvastatin Calcium (Atorvastatin Calcium 20 Mg Tablet) 20 mg PO BEDTIME [facility] Last Admin: 10/01/21 20:11 Dose: 20 mg Documented by: BERNICE Azithromycin (Azithromycin 500 Mg Tablet) 500 mg PO Q24H [facility] Last Admin: 10/01/21 14:20 Dose: 500 mg Documented by: HOLDEN Clozapine (Clozapine 100 Mg Tablet) 200 mg PO DAILY@1900 [facility] Last Admin: 10/01/21 18:35 Dose: 200 mg Documented by: HOLDEN Clozapine (Clozapine 25 Mg Tablet) 50 mg PO DAILY@1900 [facility] Last Admin: 10/01/21 18:34 Dose: 50 mg Documented by: HOLDEN Dextrose (Dextrose 50 % 25 Gm/50 Ml Vial) 25 gm IVPUSH Q15M PRN; Protocol PRN Reason: per Hypoglycemia Standing Ord. Enoxaparin Sodium (Enoxaparin Sodium 40 Mg/0.4 Ml Syringe) 40 mg SUBCUT Q24H [facility] Last Admin: 10/01/21 14:20 Dose: 40 mg Documented by: HOLDEN Famotidine (Famotidine 20 Mg Tablet) 20 mg PO BID [facility] Last Admin: 10/02/21 08:25 Dose: 20 mg Documented by: HOLDEN Glucose (Glucose Gel 15 Gm Gel..Gram.) 15 gm PO Q15M PRN; Protocol PRN Reason: per Hypoglycemia Standing Ord. Insulin Glargine (Insulin Glargine,Hum.Rec.Anlog 100 Unit/Ml 10 Ml Vial) 14 unit SUBCUT BEDTIME [facility] Insulin Human Lispro (Insulin Lispro 100 Unit/Ml 3 Ml Vial) 0 unit SUBCUT QIDACHS [facility]; Protocol Last Admin: 10/02/21 08:27 Dose: 8 unit Documented by: HOLDEN Lurasidone HCl (Lurasidone Hcl 20 Mg Tablet) 20 mg PO DAILY [facility] Last Admin: 10/02/21 08:22 Dose: 20 mg Documented by: HOLDEN Methylprednisolone Sodium Succinate (Methylprednisolone Sod Succ 40 Mg/Ml Vial) 40 mg IVPUSH Q8H [facility] Last Admin: 10/02/21 04:10 Dose: 40 mg Documented by: BERNICE Metoprolol Succinate (Metoprolol Succinate Er 50 Mg Tab.Er.24h) 50 mg PO BID [facility]; Protocol Last Admin: 10/02/21 08:23 Dose: 50 mg Documented by: HOLDEN Nicotine (Nicotine 7 Mg Patch.Td24) 7 mg TRANSDERMA DAILY [facility] Last Admin: 10/02/21 09:22 Dose: Not Given Documented by: HOLDEN Non-Admin Reason: Patient Refused Ondansetron HCl (Ondansetron Hcl 4 Mg/2 Ml Vial) 4 mg IVPUSH Q8H PRN PRN Reason: Nausea and Vomiting Pharmacy Consult (Consult Rx Perform Med Rec) 1 each MISCELLANE ONCE PRN PRN Reason: Consult order Pharmacy Consult (Consult Rx Vancomycin Dosing) 1 each MISCELLANE DAILY PRN PRN Reason: Consult order Polyethylene Glycol (Polyethylene Glycol 3350 17 Gm Powd.Pack) 17 gm PO DAILY [facility] Last Admin: 10/02/21 08:25 Dose: 17 gm Documented by: HOLDEN Senna/Docusate Sodium (Sennosides/Docusate Sodium Tablet) 2 tab PO BID [facility] Last Admin: 10/02/21 08:24 Dose: 2 tab Documented by: HOLDEN Sodium Chloride (0.9 % Sodium Chloride Flush 3 Ml Syringe) 3 ml IVFLUSH QSHIFT [facility] Last Admin: 10/02/21 08:22 Dose: 3 ml Documented by: HOLDEN Vitamin D (Cholecalciferol (Vitamin D3) 25 Mcg Tablet) 25 mcg PO DAILY [facility] Last Admin: 10/02/21 08:25 Dose: 25 mcg Documented by: HOLDEN Labs CBC & Chem 7: 10/01/21 07:40 10/02/21 06:46 Labs: Laboratory Results - last 24 hr 09/25/21 09/26/21 09/27/21 09:01 06:14 06:20 Absolute Neuts (auto) Anion Gap Creatinine 1.93 H 1.62 H 1.53 H Estim Creat Clear Calc Estimated GFR POC Glucose Random Glucose Calcium 09/29/21 10/01/21 10/01/21 05:58 07:40 11:31 Absolute Neuts (auto) Anion Gap Creatinine 1.34 1.28 Estim Creat Clear Calc Estimated GFR POC Glucose 355 H* Random Glucose Calcium 10/01/21 10/01/21 10/01/21 12:51 16:02 19:36 Absolute Neuts (auto) 7.8 Anion Gap Creatinine Estim Creat Clear Calc Estimated GFR POC Glucose 370 H* 406 H* Random Glucose Calcium 10/02/21 10/02/21 06:46 07:29 Absolute Neuts (auto) Anion Gap 13 Creatinine 1.47 H Estim Creat Clear Calc 67.0 Estimated GFR 49 POC Glucose 272 H Random Glucose 317 H Calcium 9.3 Assessment and Plan (1) Acute respiratory failure with hypoxia: Status: Acute (2) COVID-19: Status: Acute Assessment and Plan: 56 year-old male prison resident with schizoaffective disorder, HOCM, COPD, JUDY, CAD, HTN, and DM2 presenting with at least 3 days of cough, fever, and dyspnea.? Found to be septic and hypoxic from Covid-19 pneumonia. # acute hypoxic respiratory failure due to Covid-19 pneumonia/ viral sepsis, COPD exacerbation Feeling better, less oxygen requirement, no respiratory distress, finger oximetry 91% on high-flow oxygen, wean oxygen as tolerated ? s/p IV remdesivir,on IV Solu Medrol 40mg q8h , DuoNeb scheduled and as needed ,po azithromycin ? D-dimer 167, CRP 8.[address] Marcus, s/p iv tocilizumab on 09/29 ? encourage awake proning and frequent position change, continue supportive care # coagulase negative staph in 1/2 blood cultures unlikely pathogen antibiotics discontinued # JUHI initially noted to have elevated creatinine that normalized after IV fluids, today noted to have slight bump in creatinine will push by mouth fluids, continue to hold hydrochlorothiazide, and avoid nephrotoxins follow BMP # hypernatremia /mild hyperkalemia and hyperchloremia ?? Hypernatremia resolved persistent mild hyperchloremia and hyperkalemia improving, will Push by mouth fluids follow labs # Tn-I elevation - anterior ST elevations due to HOCM with secondary repolarization abnormality; Tn-I flat; likely due to JUHI + sepsis # thrombocytopenia - suspect due to viral sepsis, repeat platelet count normalized # QT prolongation, chronic - monitor, keep K>4 + Mg >2 # CAD - continue statin, ASA, metoprolol succinate and Norvasc # HTN - noted to have high blood pressure readings, with low blood pressure in between, dose of amlodipine increased to 5 mg, continue metoprolol and follow BP HCTZ held due to JUHI # DM2 - elevated blood sugars likely due to steroid, continue correction-dose lispro; Lantus 10 units at bedtime, A1c 7; takes metformin at home, wean steroids # tobacco abuse strongly advised to abstain from smoking, continue nicotine patch # schizoaffective disorder - continue clozapine, lurasidone, and lorazepam # obesity recommend low-calorie diet and exercise # VTE ppx - LMWH # code - full Quality Stroke Does the patient have a stroke diagnosis?: No VTE Prior VTE?: No VTE Risk Level:: Medical - moderate - high VTE Device Contraindication: N/A - Device Ordered VTE Drug Contraindication: N/A - Med Ordered
[2021-10-02 12:06] LABS: Glucose, Whole Blood 402 mg/dL (60-115)
[2021-10-02] MEDS: Azithromycin 500 MG TABLET PO (13:18)
[2021-10-02] MEDS: Enoxaparin Sodium 40 MG/0.4 ML SYRINGE SUBCUT (13:18)
[2021-10-02 16:06] LABS: Glucose, Whole Blood 453 mg/dL (60-115)
[2021-10-02] MEDS: cloZAPine 100 MG TABLET 200 MG PO (18:06)
[2021-10-02] MEDS: cloZAPine 25 MG TABLET 50 MG PO (18:06)
[2021-10-02 19:41] LABS: Glucose, Whole Blood 376 mg/dL (60-115)
[2021-10-02] MEDS: Insulin Glargine,Hum.rec.anlog 100 UNIT/ML 10 ML VIAL 14 UNIT SUBCUT (20:39)
[2021-10-02] MEDS: Atorvastatin Calcium 20 MG TABLET PO (20:39)
[2021-10-03] VITALS (15 sets, daily range): BP systolic 131–182; BP diastolic 80–98; PULSE 69–89; RESP 17–24; TEMP 36.2–36.7; O2SAT 90–100
[2021-10-03] MEDS: methylPREDNISolone Sod Succ 40 MG/ML VIAL IVPUSH ×3 (04:37→18:57)
[2021-10-03 07:13] LABS: Anion Gap 13 (12-20); Blood Urea Nitrogen 42 mg/dL (9-16); Calcium 8.7 mg/dL (8.4-10.2); Carbon Dioxide 26 mmol/L (22-29); Chloride 107 mmol/L (96-108); Creatinine Clr Calc Pharmacy 82.8; Estimated Glomerular Filt Rate > 60; Glucose Random 290 mg/dL (60-115); Potassium 5.2 mmol/L (3.3-5.1); Sodium 141 mmol/L (135-145)
[2021-10-03 07:31] LABS: Glucose, Whole Blood 256 mg/dL (60-115)
[2021-10-03] MEDS: Lurasidone HCl 20 MG TABLET PO (07:52)
[2021-10-03] MEDS: Aspirin 81 MG TAB.CHEW PO (07:52)
[2021-10-03] MEDS: Famotidine 20 MG TABLET PO ×2 (07:53→20:47)
[2021-10-03] MEDS: Cholecalciferol (Vitamin D3) 25 MCG TABLET PO (07:53)
[2021-10-03] MEDS: Metoprolol Succinate ER 50 MG TAB.ER.24H PO ×2 (07:53→20:47)
[2021-10-03] MEDS: amLODIPine Besylate 5 MG TABLET PO (07:53)
[2021-10-03] MEDS: Insulin Lispro 100 UNIT/ML 3 ML VIAL SUBCUT ×4 (07:54→20:47)
[2021-10-03] MEDS: Nicotine 7 MG PATCH.TD24 TRANSDERMA (07:54)
[2021-10-03] MEDS: polyethylene glycoL 3350 17 GM POWD.PACK PO (07:55)
[2021-10-03] MEDS: Albuterol/Iprat 2.5/0.5MG 3 ML AMPUL.NEB INHALE ×4 (07:56→21:28)
--- NOTE | 2021-10-03 09:18 | HO.PM.IMPN ---
Subjective Subjective Date of Service: 10/03/21 Interval History: cc: cough, fever interval history: currently denies sob Cardiovascular Cardiovascular: Reports no additional cardiovascular complaints Respiratory Respiratory: Reports no additional respiratory complaints Physical Exam Vital Signs: Vital Signs: Last Vital Signs Temp 98.0 F 10/03/21 07:29 Pulse 73 10/03/21 07:29 Resp 18 10/03/21 07:56 BP 160/89 H 10/03/21 07:29 Pulse Ox 95 10/03/21 07:29 BMI result Body Mass Index 37.2 General: AO X 3, no acute distress Resp: diminished bilateral, no accessory muscles used CVS: S1,S2,RRR GI: soft, non tender, non distended Neuro: motor grossly intact, alert Psych: flat affect, impaired insight Objective Data Active Medications Acetaminophen (Acetaminophen 325 Mg Tablet) 650 mg PO Q6H PRN PRN Reason: Pain, Mild (Pain Scale 1-3) Last Admin: 09/27/21 20:54 Dose: 650 mg Documented by: TARUNOIC Al Hydroxide/Mg Hydroxide (Magnesium Hydrox/Alum Hydrox 30 Ml Oral.Susp) 30 ml PO Q6H PRN PRN Reason: heart burn Albuterol Sulfate (Albuterol Sulfate 90 Mcg 8 Gm Inhaler) 4 puff INHALE Q4H PRN PRN Reason: asthma Albuterol/Ipratropium (Albuterol/Iprat 2.5/0.5mg 3 Ml Ampul.Neb) 3 ml INHALE RQ4H WHILE AWAKE [facility] Last Admin: 10/03/21 07:56 Dose: 3 ml Documented by: JOHANA Amlodipine Besylate (Amlodipine Besylate 5 Mg Tablet) 5 mg PO DAILY [facility]; Protocol Last Admin: 10/03/21 07:53 Dose: 5 mg Documented by: SARAH Aspirin (Aspirin 81 Mg Tab.Chew) 81 mg PO DAILY [facility] Last Admin: 10/03/21 07:52 Dose: 81 mg Documented by: SARAH Atorvastatin Calcium (Atorvastatin Calcium 20 Mg Tablet) 20 mg PO BEDTIME [facility] Last Admin: 10/02/21 20:39 Dose: 20 mg Documented by: JARRET Azithromycin (Azithromycin 500 Mg Tablet) 500 mg PO Q24H [facility] Last Admin: 10/02/21 13:18 Dose: 500 mg Documented by: HOLDEN Clozapine (Clozapine 100 Mg Tablet) 200 mg PO DAILY@1900 [facility] Last Admin: 10/02/21 18:06 Dose: 200 mg Documented by: HOLDEN Clozapine (Clozapine 25 Mg Tablet) 50 mg PO DAILY@1900 [facility] Last Admin: 10/02/21 18:06 Dose: 50 mg Documented by: HOLDEN Dextrose (Dextrose 50 % 25 Gm/50 Ml Vial) 25 gm IVPUSH Q15M PRN; Protocol PRN Reason: per Hypoglycemia Standing Ord. Enoxaparin Sodium (Enoxaparin Sodium 40 Mg/0.4 Ml Syringe) 40 mg SUBCUT Q24H [facility] Last Admin: 10/02/21 13:18 Dose: 40 mg Documented by: HOLDEN Famotidine (Famotidine 20 Mg Tablet) 20 mg PO BID [facility] Last Admin: 10/03/21 07:53 Dose: 20 mg Documented by: SARAH Glucose (Glucose Gel 15 Gm Gel..Gram.) 15 gm PO Q15M PRN; Protocol PRN Reason: per Hypoglycemia Standing Ord. Insulin Glargine (Insulin Glargine,Hum.Rec.Anlog 100 Unit/Ml 10 Ml Vial) 14 unit SUBCUT BEDTIME [facility] Last Admin: 10/02/21 20:39 Dose: 14 unit Documented by: JARRET Insulin Human Lispro (Insulin Lispro 100 Unit/Ml 3 Ml Vial) 0 unit SUBCUT QIDACHS [facility]; Protocol Last Admin: 10/03/21 07:54 Dose: 10 unit Documented by: SARAH Lurasidone HCl (Lurasidone Hcl 20 Mg Tablet) 20 mg PO DAILY [facility] Last Admin: 10/03/21 07:52 Dose: 20 mg Documented by: SARAH Methylprednisolone Sodium Succinate (Methylprednisolone Sod Succ 40 Mg/Ml Vial) 40 mg IVPUSH Q8H [facility] Last Admin: 10/03/21 04:37 Dose: 40 mg Documented by: JARRET Metoprolol Succinate (Metoprolol Succinate Er 50 Mg Tab.Er.24h) 50 mg PO BID [facility]; Protocol Last Admin: 10/03/21 07:53 Dose: 50 mg Documented by: SARAH Nicotine (Nicotine 7 Mg Patch.Td24) 7 mg TRANSDERMA DAILY [facility] Last Admin: 10/03/21 07:54 Dose: 7 mg Documented by: SARAH Ondansetron HCl (Ondansetron Hcl 4 Mg/2 Ml Vial) 4 mg IVPUSH Q8H PRN PRN Reason: Nausea and Vomiting Pharmacy Consult (Consult Rx Perform Med Rec) 1 each MISCELLANE ONCE PRN PRN Reason: Consult order Pharmacy Consult (Consult Rx Vancomycin Dosing) 1 each MISCELLANE DAILY PRN PRN Reason: Consult order Polyethylene Glycol (Polyethylene Glycol 3350 17 Gm Powd.Pack) 17 gm PO DAILY [facility] Last Admin: 10/03/21 07:55 Dose: 17 gm Documented by: SARAH Senna/Docusate Sodium (Sennosides/Docusate Sodium Tablet) 2 tab PO BID [facility] Last Admin: 10/03/21 07:59 Dose: Not Given Documented by: SARAH Non-Admin Reason: loose Sodium Chloride (0.9 % Sodium Chloride Flush 3 Ml Syringe) 3 ml IVFLUSH QSHIFT [facility] Last Admin: 10/02/21 20:40 Dose: 3 ml Documented by: JARRET Vitamin D (Cholecalciferol (Vitamin D3) 25 Mcg Tablet) 25 mcg PO DAILY [facility] Last Admin: 10/03/21 07:53 Dose: 25 mcg Documented by: SARAH Labs CBC & Chem 7: 10/01/21 07:40 10/03/21 06:03 Labs: Laboratory Results - last 24 hr 10/02/21 10/02/21 10/02/21 11:12 16:02 19:33 Anion Gap Estim Creat Clear Calc Estimated GFR POC Glucose 402 H* 453 H* 376 H* Random Glucose Calcium 10/03/21 10/03/21 06:03 07:16 Anion Gap 13 Estim Creat Clear Calc 82.8 Estimated GFR > 60 POC Glucose 256 H Random Glucose 290 H Calcium 8.7 D Assessment and Plan (1) Acute respiratory failure with hypoxia: Status: Acute (2) COVID-19: Status: Acute Assessment and Plan: 56 year-old male retirement resident with schizoaffective disorder, HOCM, COPD, JUDY, CAD, HTN, and DM2 presented with at least 3 days of cough, fever, and dyspnea.? Found to be septic and hypoxic from Covid-19 pneumonia. acute hypoxic respiratory failure due to Covid-19 pneumonia/ viral sepsis, acute decompensation of COPD overall improved, continue to wean o2 as tolerated, on high flow 50%, 40L/min ? s/p IV remdesivir,on IV Solu Medrol 40mg q8h , DuoNeb scheduled and as needed ,po azithromycin monitor prognostic labs seen by Dr. Marcus, s/p iv tocilizumab on 09/29 ? encourage awake proning and frequent position change, continue supportive care coagulase negative staph in 1/2 blood cultures unlikely pathogen antibiotics discontinued JUHI resolved hypernatremia /mild hyperkalemia ?? Hypernatremia resolved persistent mild hyperkalemia, encourage by mouth fluids follow labs Tn-I elevation anterior ST elevations due to HOCM with secondary repolarization abnormality; Tn-I flat; likely due to JUHI + sepsis thrombocytopenia due to viral sepsis, resolved QT prolongation, chronic - monitor, keep K>4 + Mg >2 CAD - continue statin, ASA, metoprolol succinate HTN - noted to have high blood pressure readings, with low blood pressure in between, dose of amlodipine increased to 5 mg, continue metoprolol and follow BP HCTZ held due to JUHI DM2 elevated blood sugars likely due to steroid, continue correction-dose lispro; Lantus 10 units at bedtime, A1c 7; takes metformin at home nicotine dependence strongly advised to abstain from smoking, continue nicotine patch schizoaffective disorder continue clozapine, lurasidone, and lorazepam obesity recommend low-calorie diet and exercise VTE ppx - LMWH code - full Quality Stroke Does the patient have a stroke diagnosis?: No VTE Prior VTE?: No VTE Risk Level:: Medical - moderate - high VTE Device Contraindication: N/A - Device Ordered VTE Drug Contraindication: N/A - Med Ordered
[2021-10-03 11:15] LABS: Glucose, Whole Blood 355 mg/dL (60-115)
--- NOTE | 2021-10-03 11:24 | MHC.CM.PN ---
Per ROUNDS discussion, Patient is not yet medically cleared for dc (IV Solu Medrol and high flow O2); goal is to return to the care home and CM will continue to follow.
[2021-10-03] MEDS: Azithromycin 500 MG TABLET PO (13:18)
[2021-10-03] MEDS: Enoxaparin Sodium 40 MG/0.4 ML SYRINGE SUBCUT (13:18)
[2021-10-03] MEDS: 0.9 % Sodium Chloride Flush 3 ML SYRINGE IVFLUSH (16:08)
[2021-10-03 16:15] LABS: Glucose, Whole Blood 422 mg/dL (60-115)
[2021-10-03] MEDS: cloZAPine 100 MG TABLET 200 MG PO (18:55)
[2021-10-03] MEDS: cloZAPine 25 MG TABLET 50 MG PO (18:56)
[2021-10-03] MEDS: Atorvastatin Calcium 20 MG TABLET PO (20:47)
[2021-10-03] MEDS: Sennosides/Docusate Sodium TABLET 2 TAB PO (20:47)
[2021-10-03] MEDS: Insulin Glargine,Hum.rec.anlog 100 UNIT/ML 10 ML VIAL 14 UNIT SUBCUT (20:48)
[2021-10-03 22:24] LABS: Glucose, Whole Blood 380 mg/dL (60-115)
[2021-10-04] VITALS (14 sets, daily range): BP systolic 137–154; BP diastolic 72–88; PULSE 62–92; RESP 18–26; TEMP 36.1–37.1; O2SAT 90–96
[2021-10-04] MEDS: 0.9 % Sodium Chloride Flush 3 ML SYRINGE IVFLUSH ×4 (00:16→21:31)
[2021-10-04] MEDS: methylPREDNISolone Sod Succ 40 MG/ML VIAL IVPUSH ×3 (04:28→21:31)
[2021-10-04 07:07] LABS: Hematocrit 41.9 % (42.0-52.0); Hemoglobin 13.7 g/dl (14.0-18.0); Mean Corpuscular HGB Conc 32.7 g/dl (31.0-36.0); Mean Corpuscular Hemoglobin 28.3 pg (27.0-33.0); Mean Corpuscular Volume 86.6 fL (80.0-98.0); Mean Platelet Volume 11.6 fL (9.4-12.4); NRBC Pct Auto 0.1 /100WBC (0.0-0.2); Platelet Count 177 X10*3/uL (160-400); Red Blood Count 4.84 X10*6/uL (4.60-5.80); Red Cell Distribution Width 14.7 % (11.0-16.0)
[2021-10-04 07:25] LABS: Glucose, Whole Blood 232 mg/dL (60-115)
[2021-10-04] MEDS: Albuterol/Iprat 2.5/0.5MG 3 ML AMPUL.NEB INHALE ×3 (07:45→15:00)
[2021-10-04 08:06] LABS: Anion Gap 11 (12-20); Blood Urea Nitrogen 36 mg/dL (9-16); C Reactive Protein 0.32 mg/dL (< or = 0.50); Calcium 9.2 mg/dL (8.4-10.2); Carbon Dioxide 28 mmol/L (22-29); Chloride 105 mmol/L (96-108); Creatinine Clr Calc Pharmacy 92.1; Estimated Glomerular Filt Rate > 60; Glucose Fasting 238 mg/dL (60-99); Lactate Dehydrogenase 595 U/L (118-273); Magnesium 2.5 mg/dL (1.6-2.6); Potassium 5.1 mmol/L (3.3-5.1); Sodium 139 mmol/L (135-145)
[2021-10-04] MEDS: Nicotine 7 MG PATCH.TD24 TRANSDERMA (08:26)
[2021-10-04] MEDS: polyethylene glycoL 3350 17 GM POWD.PACK PO (08:27)
[2021-10-04] MEDS: Sennosides/Docusate Sodium TABLET 2 TAB PO ×2 (08:28→21:29)
[2021-10-04] MEDS: amLODIPine Besylate 5 MG TABLET PO (08:28)
[2021-10-04] MEDS: Famotidine 20 MG TABLET PO ×2 (08:28→21:30)
[2021-10-04] MEDS: Cholecalciferol (Vitamin D3) 25 MCG TABLET PO (08:28)
[2021-10-04] MEDS: Lurasidone HCl 20 MG TABLET PO (08:28)
[2021-10-04] MEDS: Metoprolol Succinate ER 50 MG TAB.ER.24H PO ×2 (08:28→21:29)
[2021-10-04] MEDS: Aspirin 81 MG TAB.CHEW PO (08:28)
[2021-10-04] MEDS: Insulin Lispro 100 UNIT/ML 3 ML VIAL SUBCUT ×4 (08:29→21:31)
--- NOTE | 2021-10-04 09:41 | P.PNIM_ITS ---
Subjective Subjective Date of Service: 10/04/21 Interval History: cc: cough, fever interval history: currently denies sob Cardiovascular Cardiovascular: Reports no additional cardiovascular complaints Respiratory Respiratory: Reports no additional respiratory complaints Physical Exam Vital Signs: Vital Signs: Last Vital Signs Temp 98 F 10/04/21 07:07 Pulse 73 10/04/21 08:28 Resp 18 10/04/21 07:48 BP 143/84 H 10/04/21 08:28 Pulse Ox 93 10/04/21 07:07 BMI result Body Mass Index 37.2 General: AO X 3, no acute distress Resp:? diminished bilateral, no accessory muscles used CVS: S1,S2,RRR GI: soft, non tender, non distended Neuro:? motor grossly intact, alert Psych: flat affect, impaired insight? Objective Data Active Medications Acetaminophen (Acetaminophen 325 Mg Tablet) 650 mg PO Q6H PRN PRN Reason: Pain, Mild (Pain Scale 1-3) Last Admin: 09/27/21 20:54 Dose: 650 mg Documented by: MYA Al Hydroxide/Mg Hydroxide (Magnesium Hydrox/Alum Hydrox 30 Ml Oral.Susp) 30 ml PO Q6H PRN PRN Reason: heart burn Albuterol Sulfate (Albuterol Sulfate 90 Mcg 8 Gm Inhaler) 4 puff INHALE Q4H PRN PRN Reason: asthma Albuterol/Ipratropium (Albuterol/Iprat 2.5/0.5mg 3 Ml Ampul.Neb) 3 ml INHALE RQ4H WHILE AWAKE [facility] Last Admin: 10/04/21 07:45 Dose: 3 ml Documented by: JOHANA Amlodipine Besylate (Amlodipine Besylate 5 Mg Tablet) 5 mg PO DAILY [facility]; Protocol Last Admin: 10/04/21 08:28 Dose: 5 mg Documented by: MARCO A Aspirin (Aspirin 81 Mg Tab.Chew) 81 mg PO DAILY [facility] Last Admin: 10/04/21 08:28 Dose: 81 mg Documented by: MARCO A Atorvastatin Calcium (Atorvastatin Calcium 20 Mg Tablet) 20 mg PO BEDTIME [facility] Last Admin: 10/03/21 20:47 Dose: 20 mg Documented by: MEET Azithromycin (Azithromycin 500 Mg Tablet) 500 mg PO Q24H [facility] Last Admin: 10/03/21 13:18 Dose: 500 mg Documented by: SARAH Clozapine (Clozapine 100 Mg Tablet) 200 mg PO DAILY@1900 [facility] Last Admin: 10/03/21 18:55 Dose: 200 mg Documented by: MEET Clozapine (Clozapine 25 Mg Tablet) 50 mg PO DAILY@1900 [facility] Last Admin: 10/03/21 18:56 Dose: 50 mg Documented by: MEET Dextrose (Dextrose 50 % 25 Gm/50 Ml Vial) 25 gm IVPUSH Q15M PRN; Protocol PRN Reason: per Hypoglycemia Standing Ord. Enoxaparin Sodium (Enoxaparin Sodium 40 Mg/0.4 Ml Syringe) 40 mg SUBCUT Q24H [facility] Last Admin: 10/03/21 13:18 Dose: 40 mg Documented by: SARAH Famotidine (Famotidine 20 Mg Tablet) 20 mg PO BID [facility] Last Admin: 10/04/21 08:28 Dose: 20 mg Documented by: MARCO A Glucose (Glucose Gel 15 Gm Gel..Gram.) 15 gm PO Q15M PRN; Protocol PRN Reason: per Hypoglycemia Standing Ord. Insulin Glargine (Insulin Glargine,Hum.Rec.Anlog 100 Unit/Ml 10 Ml Vial) 14 unit SUBCUT BEDTIME [facility] Last Admin: 10/03/21 20:48 Dose: 14 unit Documented by: MEET Insulin Human Lispro (Insulin Lispro 100 Unit/Ml 3 Ml Vial) 0 unit SUBCUT QIDACHS [facility]; Protocol Last Admin: 10/04/21 08:29 Dose: 8 unit Documented by: MARCO A Lurasidone HCl (Lurasidone Hcl 20 Mg Tablet) 20 mg PO DAILY [facility] Last Admin: 10/04/21 08:28 Dose: 20 mg Documented by: MARCO A Methylprednisolone Sodium Succinate (Methylprednisolone Sod Succ 40 Mg/Ml Vial) 40 mg IVPUSH Q8H [facility] Last Admin: 10/04/21 04:28 Dose: 40 mg Documented by: JARRET Metoprolol Succinate (Metoprolol Succinate Er 50 Mg Tab.Er.24h) 50 mg PO BID [facility]; Protocol Last Admin: 10/04/21 08:28 Dose: 50 mg Documented by: MARCO A Nicotine (Nicotine 7 Mg Patch.Td24) 7 mg TRANSDERMA DAILY [facility] Last Admin: 10/04/21 08:26 Dose: 7 mg Documented by: MARCO A Ondansetron HCl (Ondansetron Hcl 4 Mg/2 Ml Vial) 4 mg IVPUSH Q8H PRN PRN Reason: Nausea and Vomiting Pharmacy Consult (Consult Rx Perform Med Rec) 1 each MISCELLANE ONCE PRN PRN Reason: Consult order Polyethylene Glycol (Polyethylene Glycol 3350 17 Gm Powd.Pack) 17 gm PO DAILY [facility] Last Admin: 10/04/21 08:27 Dose: 17 gm Documented by: MARCO A Senna/Docusate Sodium (Sennosides/Docusate Sodium Tablet) 2 tab PO BID [facility] Last Admin: 10/04/21 08:28 Dose: 2 tab Documented by: MARCO A Sodium Chloride (0.9 % Sodium Chloride Flush 3 Ml Syringe) 3 ml IVFLUSH QSHIFT [facility] Last Admin: 10/04/21 08:29 Dose: 3 ml Documented by: MARCO A Vitamin D (Cholecalciferol (Vitamin D3) 25 Mcg Tablet) 25 mcg PO DAILY [facility] Last Admin: 10/04/21 08:28 Dose: 25 mcg Documented by: MARCO A Labs CBC & Chem 7: 10/04/21 06:47 10/04/21 06:47 Labs: Laboratory Results - last 24 hr 10/03/21 10/03/21 10/03/21 11:00 16:06 20:07 MCV MCH MCHC RDW Plt Count MPV Absolute Nucleated RBC Nucleated RBC % (auto) Anion Gap Estim Creat Clear Calc Estimated GFR POC Glucose 355 H* 422 H* 380 H* Fasting Glucose Calcium Magnesium Lactate Dehydrogenase C-Reactive Protein 10/04/21 10/04/21 10/04/21 06:47 06:47 07:19 MCV 86.6 MCH 28.3 MCHC 32.7 RDW 14.7 Plt Count 177 MPV 11.6 Absolute Nucleated RBC 0.020 H Nucleated RBC % (auto) 0.1 Anion Gap 11 L Estim Creat Clear Calc 92.1 Estimated GFR > 60 POC Glucose 232 H Fasting Glucose 238 H D Calcium 9.2 Magnesium 2.5 Lactate Dehydrogenase 595 H C-Reactive Protein 0.32 Assessment and Plan (1) Acute respiratory failure with hypoxia: Status: Acute (2) COVID-19: Status: Acute Assessment and Plan: 56 year-old male custodial resident with schizoaffective disorder, HOCM, COPD, JUDY, CAD, HTN, and DM2 presented with at least 3 days of cough, fever, and dyspnea.? Found to be septic and hypoxic from Covid-19 pneumonia. acute hypoxic respiratory failure due to Covid-19 pneumonia/ viral sepsis, acute decompensation of COPD overall improved, continue to wean o2 as tolerated, on high flow 35%, 35L/min ? s/p IV remdesivir,on IV Solu Medrol 40mg q8h , DuoNeb scheduled and as needed ,po azithromycin crp normalized seen by Dr. Marcus, s/p iv tocilizumab on 09/29 ? encourage awake proning and frequent position change, continue supportive care coagulase negative staph in 1/ blood cultures unlikely pathogen antibiotics discontinued JUHI resolved hypernatremia /mild hyperkalemia ?? Hypernatremia resolved persistent mild hyperkalemia, encourage by mouth flui ds follow labs Tn-I elevation anterior ST elevations due to HOCM with secondary repolarization abnormality; Tn-I flat; likely due to JUHI + sepsis thrombocytopenia due to viral sepsis, resolved QT prolongation, chronic - monitor, keep K>4 + Mg >2 CAD - continue statin, ASA, metoprolol succinate HTN - noted to have high blood pressure readings, with low blood pressure in between, dose of amlodipine increased to 5 mg, continue metoprolol and follow BP HCTZ held due to JUHI DM2 elevated blood sugars likely due to steroid, continue correction-dose lispro; Lantus 10 units at bedtime, A1c 7; takes metformin at home nicotine dependence strongly advised to abstain from smoking, continue nicotine patch schizoaffective disorder continue clozapine, lurasidone, and lorazepam obesity recommend low-calorie diet and exercise VTE ppx - LMWH code - full Quality Stroke Does the patient have a stroke diagnosis?: No VTE Prior VTE?: No VTE Risk Level:: Medical - moderate - high VTE Device Contraindication: N/A - Device Ordered VTE Drug Contraindication: N/A - Med Ordered
[2021-10-04 11:28] LABS: Glucose, Whole Blood 290 mg/dL (60-115)
[2021-10-04] MEDS: Enoxaparin Sodium 40 MG/0.4 ML SYRINGE SUBCUT (13:43)
[2021-10-04] MEDS: Azithromycin 500 MG TABLET PO (13:43)
[2021-10-04 16:42] LABS: Glucose, Whole Blood 255 mg/dL (60-115)
[2021-10-04 20:58] LABS: Glucose, Whole Blood 286 mg/dL (60-115)
[2021-10-04] MEDS: cloZAPine 100 MG TABLET 200 MG PO (21:28)
[2021-10-04] MEDS: cloZAPine 25 MG TABLET 50 MG PO (21:29)
[2021-10-04] MEDS: Atorvastatin Calcium 20 MG TABLET PO (21:30)
[2021-10-04] MEDS: Insulin Glargine,Hum.rec.anlog 100 UNIT/ML 10 ML VIAL 14 UNIT SUBCUT (21:31)
[2021-10-05] VITALS (10 sets, daily range): BP systolic 118–144; BP diastolic 68–84; PULSE 67–94; RESP 18–21; TEMP 36–36.7; O2SAT 92–94
[2021-10-05] MEDS: methylPREDNISolone Sod Succ 40 MG/ML VIAL IVPUSH ×3 (03:07→21:33)
--- NOTE | 2021-10-05 05:07 | PC.NURSE ---
Pt had 9 beat run of VT around 04:40. Pt asymptomatic. Had to wake pt up to assess. VSS (no change from prvious vitals). Dr Braun notified. Will continue to monitor.
[2021-10-05 07:45] LABS: Glucose, Whole Blood 211 mg/dL (60-115)
[2021-10-05 08:33] LABS: Anion Gap 14 (12-20); Blood Urea Nitrogen 35 mg/dL (9-16); Carbon Dioxide 25 mmol/L (22-29); Chloride 105 mmol/L (96-108); Creatinine Clr Calc Pharmacy 94.7; Estimated Glomerular Filt Rate > 60; Glucose Random 224 mg/dL (60-115); Magnesium 2.3 mg/dL (1.6-2.6); Potassium 5.2 mmol/L (3.3-5.1); Sodium 139 mmol/L (135-145)
[2021-10-05] MEDS: Sennosides/Docusate Sodium TABLET 2 TAB PO ×2 (08:48→21:32)
[2021-10-05] MEDS: Insulin Lispro 100 UNIT/ML 3 ML VIAL SUBCUT ×4 (08:49→21:33)
[2021-10-05] MEDS: Nicotine 7 MG PATCH.TD24 TRANSDERMA (08:49)
[2021-10-05] MEDS: Lurasidone HCl 20 MG TABLET PO (08:49)
[2021-10-05] MEDS: amLODIPine Besylate 5 MG TABLET PO (08:49)
[2021-10-05] MEDS: Cholecalciferol (Vitamin D3) 25 MCG TABLET PO (08:50)
[2021-10-05] MEDS: polyethylene glycoL 3350 17 GM POWD.PACK PO (08:50)
[2021-10-05] MEDS: Metoprolol Succinate ER 50 MG TAB.ER.24H PO ×2 (08:50→21:32)
[2021-10-05] MEDS: Famotidine 20 MG TABLET PO ×2 (08:50→21:32)
[2021-10-05] MEDS: Aspirin 81 MG TAB.CHEW PO (08:50)
[2021-10-05] MEDS: 0.9 % Sodium Chloride Flush 3 ML SYRINGE IVFLUSH ×2 (08:51→17:35)
[2021-10-05 11:27] LABS: Glucose, Whole Blood 211 mg/dL (60-115)
--- NOTE | 2021-10-05 11:43 | P.PNIM_ITS ---
Subjective Subjective Date of Service: 10/05/21 Interval History: The patient was seen and evaluated this morning Laying in bed, feels comfortable overall On 4 L of oxygen No reported other overnight events. Systemic review: No fever, chills or weakness No chest pain, palpitation No shortness of breath or coughing No abdominal pain, nausea or vomiting No urinary symptoms No any rash or wounds Physical Exam Vital Signs: Vital Signs: Last Vital Signs Temp 98.1 F 10/05/21 11:19 Pulse 75 10/05/21 11:19 Resp 18 10/05/21 11:19 BP 118/73 10/05/21 11:19 Pulse Ox 94 10/05/21 11:19 BMI result Body Mass Index 37.2 Const: Other: Constitutional : Alert, not in distress Neck : Normal inspection, Supple Cardiovascular : RRR, S1 S2, no lower extremity edema Respiratory : Good bilateral air entry, no crackles, wheezes or rhonchi, on 4 L of oxygen Gastrointestinal: soft, lax, Normal bowel sounds, Non tender Skin : Warm, Dry Neurological : Alert & interactive, No focal deficit Objective Data Active Medications Acetaminophen (Acetaminophen 325 Mg Tablet) 650 mg PO Q6H PRN PRN Reason: Pain, Mild (Pain Scale 1-3) Last Admin: 09/27/21 20:54 Dose: 650 mg Documented by: MYA Al Hydroxide/Mg Hydroxide (Magnesium Hydrox/Alum Hydrox 30 Ml Oral.Susp) 30 ml PO Q6H PRN PRN Reason: heart burn Albuterol Sulfate (Albuterol Sulfate 90 Mcg 8 Gm Inhaler) 4 puff INHALE Q4H PRN PRN Reason: asthma Amlodipine Besylate (Amlodipine Besylate 5 Mg Tablet) 5 mg PO DAILY [facility]; Protocol Last Admin: 10/05/21 08:49 Dose: 5 mg Documented by: SUMMER Aspirin (Aspirin 81 Mg Tab.Chew) 81 mg PO DAILY [facility] Last Admin: 10/05/21 08:50 Dose: 81 mg Documented by: SUMMER Atorvastatin Calcium (Atorvastatin Calcium 20 Mg Tablet) 20 mg PO BEDTIME [facility] Last Admin: 10/04/21 21:30 Dose: 20 mg Documented by: JENNIFER Clozapine (Clozapine 100 Mg Tablet) 200 mg PO DAILY@1900 [facility] Last Admin: 10/04/21 21:28 Dose: 200 mg Documented by: JENNIFER Comments: late due to pt assignment Clozapine (Clozapine 25 Mg Tablet) 50 mg PO DAILY@1900 [facility] Last Admin: 10/04/21 21:29 Dose: 50 mg Documented by: JENNIFER Comments: late due to heavy pt assignment Dextrose (Dextrose 50 % 25 Gm/50 Ml Vial) 25 gm IVPUSH Q15M PRN; Protocol PRN Reason: per Hypoglycemia Standing Ord. Enoxaparin Sodium (Enoxaparin Sodium 40 Mg/0.4 Ml Syringe) 40 mg SUBCUT Q24H S Last Admin: 10/04/21 13:43 Dose: 40 mg Documented by: MARCO A Famotidine (Famotidine 20 Mg Tablet) 20 mg PO BID [facility] Last Admin: 10/05/21 08:50 Dose: 20 mg Documented by: SUMMER Glucose (Glucose Gel 15 Gm Gel..Gram.) 15 gm PO Q15M PRN; Protocol PRN Reason: per Hypoglycemia Standing Ord. Insulin Glargine (Insulin Glargine,Hum.Rec.Anlog 100 Unit/Ml 10 Ml Vial) 14 unit SUBCUT BEDTIME [facility] Last Admin: 10/04/21 21:31 Dose: 14 unit Documented by: JENNIFER Insulin Human Lispro (Insulin Lispro 100 Unit/Ml 3 Ml Vial) 0 unit SUBCUT QIDA [facility]; Protocol Last Admin: 10/05/21 08:49 Dose: 1 unit Documented by: SUMMER Lurasidone HCl (Lurasidone Hcl 20 Mg Tablet) 20 mg PO DAILY [facility] Last Admin: 10/05/21 08:49 Dose: 20 mg Documented by: SUMMER Methylprednisolone Sodium Succinate (Methylprednisolone Sod Succ 40 Mg/Ml Vial) 40 mg IVPUSH Q8H [facility] Last Admin: 10/05/21 03:07 Dose: 40 mg Documented by: JENNIFER Metoprolol Succinate (Metoprolol Succinate Er 50 Mg Tab.Er.24h) 50 mg PO BID [facility]; Protocol Last Admin: 10/05/21 08:50 Dose: 50 mg Documented by: SUMMER Nicotine (Nicotine 7 Mg Patch.Td24) 7 mg TRANSDERMA DAILY [facility] Last Admin: 10/05/21 08:49 Dose: 7 mg Documented by: SUMMER Ondansetron HCl (Ondansetron Hcl 4 Mg/2 Ml Vial) 4 mg IVPUSH Q8H PRN PRN Reason: Nausea and Vomiting Pharmacy Consult (Consult Rx Perform Med Rec) 1 each MISCELLANE ONCE PRN PRN Reason: Consult order Polyethylene Glycol (Polyethylene Glycol 3350 17 Gm Powd.Pack) 17 gm PO DAILY [facility] Last Admin: 10/05/21 08:50 Dose: 17 gm Documented by: SUMMER Senna/Docusate Sodium (Sennosides/Docusate Sodium Tablet) 2 tab PO BID [facility] Last Admin: 10/05/21 08:48 Dose: 2 tab Documented by: SUMMER Sodium Chloride (0.9 % Sodium Chloride Flush 3 Ml Syringe) 3 ml IVFLUSH QSHIFT [facility] Last Admin: 10/05/21 08:51 Dose: 3 ml Documented by: SUMMER Vitamin D (Cholecalciferol (Vitamin D3) 25 Mcg Tablet) 25 mcg PO DAILY [facility] Last Admin: 10/05/21 08:50 Dose: 25 mcg Documented by: SUMMER Labs CBC & Chem 7: 10/04/21 06:47 10/05/21 07:53 Labs: Laboratory Results - last 24 hr 10/04/21 10/04/21 10/05/21 16:37 20:51 07:36 Anion Gap Estim Creat Clear Calc Estimated GFR POC Glucose 255 H 286 H 211 H Random Glucose Calcium Magnesium 10/05/21 10/05/21 07:53 11:20 Anion Gap 14 Estim Creat Clear Calc 94.7 Estimated GFR > 60 POC Glucose 211 H Random Glucose 224 H Calcium 9.0 Magnesium 2.3 Assessment and Plan (1) Acute respiratory failure with hypoxia: Status: Acute (2) COVID-19: Status: Acute (3) Hyperkalemia: Status: Acute Assessment and Plan: 56 year-old male senior living resident with schizoaffective disorder, HOCM, COPD, JUDY, CAD, HTN, and DM2 presented with at least 3 days of cough, fever, and dyspnea.? Found to be septic and hypoxic from Covid-19 pneumonia. acute hypoxic respiratory failure due to Covid-19 pneumonia/ viral sepsis, acute decompensation of COPD overall improved, wean o2 as tolerated, on 4 L of oxygen s/p IV remdesivir,on IV Solu Medrol 40mg q8h , DuoNeb scheduled and as needed ,po azithromycin JUHI resolved hyperkalemia persistent mild hyperkalemia, local in a given thrombocytopenia due to viral sepsis, resolved QT prolongation, chronic monitor, keep K>4 + Mg >2 CAD continue statin, ASA, metoprolol succinate HTN better controlled on home medications DM2 elevated blood sugars likely due to steroid, continue correction-dose lispro; Lantus 10 units at bedtime, A1c 7; takes metformin at home nicotine dependence strongly advised to abstain from smoking, continue nicotine patch schizoaffective disorder continue clozapine, lurasidone, and lorazepam obesity recommend low-calorie diet and exercise VTE ppx LMWH Quality Stroke Does the patient have a stroke diagnosis?: No VTE Prior VTE?: No VTE Risk Level:: Medical - moderate - high VTE Device Contraindication: N/A - Device Ordered VTE Drug Contraindication: N/A - Med Ordered
[2021-10-05] MEDS: Enoxaparin Sodium 40 MG/0.4 ML SYRINGE SUBCUT (13:27)
--- NOTE | 2021-10-05 14:28 | MHC.CM.PN ---
Per ROUNDS discussion, Patient may be ready for dc this week. Per MD's request, CM has left a message at [facility] at [phone], inquiring as to whether or not a Resident can return to the Skilled Nursing on O2; CM awaits a response.
[2021-10-05] MEDS: Sodium Zirconium Cyclosilicate 10 GM POWD.PACK PO (14:31)
[2021-10-05 16:20] LABS: Glucose, Whole Blood 210 mg/dL (60-115)
[2021-10-05] MEDS: cloZAPine 25 MG TABLET 50 MG PO (17:35)
[2021-10-05] MEDS: cloZAPine 100 MG TABLET 200 MG PO (17:35)
[2021-10-05 20:38] LABS: Glucose, Whole Blood 160 mg/dL (60-115)
[2021-10-05] MEDS: Atorvastatin Calcium 20 MG TABLET PO (21:32)
[2021-10-05] MEDS: Insulin Glargine,Hum.rec.anlog 100 UNIT/ML 10 ML VIAL 14 UNIT SUBCUT (21:33)
[2021-10-06] VITALS (7 sets, daily range): BP systolic 102–145; BP diastolic 63–82; PULSE 68–115; RESP 19–20; TEMP 36.4–37.2; O2SAT 89–94
[2021-10-06] MEDS: methylPREDNISolone Sod Succ 40 MG/ML VIAL IVPUSH ×3 (03:38→20:43)
[2021-10-06] MEDS: 0.9 % Sodium Chloride Flush 3 ML SYRINGE IVFLUSH ×4 (03:38→21:48)
[2021-10-06 07:21] LABS: Glucose, Whole Blood 167 mg/dL (60-115)
[2021-10-06 08:00] LABS: Hematocrit 44.8 % (42.0-52.0); Hemoglobin 14.5 g/dl (14.0-18.0); Mean Corpuscular HGB Conc 32.4 g/dl (31.0-36.0); Mean Corpuscular Hemoglobin 28.3 pg (27.0-33.0); Mean Corpuscular Volume 87.3 fL (80.0-98.0); Mean Platelet Volume 12.3 fL (9.4-12.4); Platelet Count 163 X10*3/uL (160-400); Red Blood Count 5.13 X10*6/uL (4.60-5.80); White Blood Count 18.7 X10*3/uL (4.8-10.8)
[2021-10-06 08:15] LABS: Anion Gap 13 (12-20); Blood Urea Nitrogen 39 mg/dL (9-16); Calcium 8.9 mg/dL (8.4-10.2); Carbon Dioxide 24 mmol/L (22-29); Chloride 108 mmol/L (96-108); Creatinine Clr Calc Pharmacy 100.5; Estimated Glomerular Filt Rate > 60; Glucose Random 171 mg/dL (60-115); Potassium 4.6 mmol/L (3.3-5.1); Sodium 140 mmol/L (135-145)
[2021-10-06 08:17] LABS: C Reactive Protein 0.14 mg/dL (< or = 0.50); Lactate Dehydrogenase 558 U/L (118-273)
[2021-10-06] MEDS: polyethylene glycoL 3350 17 GM POWD.PACK PO (08:31)
[2021-10-06] MEDS: Insulin Lispro 100 UNIT/ML 3 ML VIAL SUBCUT ×3 (08:31→21:48)
[2021-10-06] MEDS: Nicotine 7 MG PATCH.TD24 TRANSDERMA (08:32)
[2021-10-06] MEDS: Cholecalciferol (Vitamin D3) 25 MCG TABLET PO (08:32)
[2021-10-06] MEDS: Sennosides/Docusate Sodium TABLET 2 TAB PO ×2 (08:32→20:33)
[2021-10-06] MEDS: amLODIPine Besylate 5 MG TABLET PO (08:33)
[2021-10-06] MEDS: Metoprolol Succinate ER 50 MG TAB.ER.24H PO ×2 (08:33→20:33)
[2021-10-06] MEDS: Aspirin 81 MG TAB.CHEW PO (08:33)
[2021-10-06] MEDS: Lurasidone HCl 20 MG TABLET PO (08:33)
[2021-10-06] MEDS: Famotidine 20 MG TABLET PO ×2 (08:33→20:33)
[2021-10-06 11:04] LABS: Glucose, Whole Blood 269 mg/dL (60-115)
[2021-10-06] MEDS: Enoxaparin Sodium 40 MG/0.4 ML SYRINGE SUBCUT (14:37)
--- NOTE | 2021-10-06 14:49 | HO.PM.IMPN ---
Subjective Subjective Date of Service: 10/06/21 Interval History: The patient was seen and evaluated this morning Laying in bed, feels comfortable overall On 2 L of oxygen, reports mild dyspnea with ambulation No reported other overnight events. Systemic review: No fever, chills or weakness No chest pain, palpitation No shortness of breath or coughing No abdominal pain, nausea or vomiting No urinary symptoms No any rash or wounds Physical Exam Vital Signs: Vital Signs: Last Vital Signs Temp 98.4 F 10/06/21 11:22 Pulse 87 10/06/21 11:22 Resp 19 10/06/21 11:22 BP 128/79 10/06/21 11:22 Pulse Ox 94 10/06/21 11:22 BMI result Body Mass Index 37.2 Const: Other: Constitutional : Alert, not in distress Neck : Normal inspection, Supple Cardiovascular : RRR, S1 S2, no lower extremity edema Respiratory : Good bilateral air entry, no crackles, wheezes or rhonchi, on 4 L of oxygen Gastrointestinal: soft, lax, Normal bowel sounds, Non tender Skin : Warm, Dry Neurological : Alert & interactive, No focal deficit Objective Data Active Medications Acetaminophen (Acetaminophen 325 Mg Tablet) 650 mg PO Q6H PRN PRN Reason: Pain, Mild (Pain Scale 1-3) Last Admin: 09/27/21 20:54 Dose: 650 mg Documented by: MYA Al Hydroxide/Mg Hydroxide (Magnesium Hydrox/Alum Hydrox 30 Ml Oral.Susp) 30 ml PO Q6H PRN PRN Reason: heart burn Albuterol Sulfate (Albuterol Sulfate 90 Mcg 8 Gm Inhaler) 4 puff INHALE Q4H PRN PRN Reason: asthma Amlodipine Besylate (Amlodipine Besylate 5 Mg Tablet) 5 mg PO DAILY [facility]; Protocol Last Admin: 10/06/21 08:33 Dose: 5 mg Documented by: MEG Aspirin (Aspirin 81 Mg Tab.Chew) 81 mg PO DAILY [facility] Last Admin: 10/06/21 08:33 Dose: 81 mg Documented by: MEG Atorvastatin Calcium (Atorvastatin Calcium 20 Mg Tablet) 20 mg PO BEDTIME [facility] Last Admin: 10/05/21 21:32 Dose: 20 mg Documented by: FLORECITA Clozapine (Clozapine 100 Mg Tablet) 200 mg PO DAILY@1900 [facility] Last Admin: 10/05/21 17:35 Dose: 200 mg Documented by: SUMMER Clozapine (Clozapine 25 Mg Tablet) 50 mg PO DAILY@1900 [facility] Last Admin: 10/05/21 17:35 Dose: 50 mg Documented by: SUMMER Dextrose (Dextrose 50 % 25 Gm/50 Ml Vial) 25 gm IVPUSH Q15M PRN; Protocol PRN Reason: per Hypoglycemia Standing Ord. Enoxaparin Sodium (Enoxaparin Sodium 40 Mg/0.4 Ml Syringe) 40 mg SUBCUT Q24H [facility] Last Admin: 10/06/21 14:37 Dose: 40 mg Documented by: MEG Famotidine (Famotidine 20 Mg Tablet) 20 mg PO BID [facility] Last Admin: 10/06/21 08:33 Dose: 20 mg Documented by: MEG Glucose (Glucose Gel 15 Gm Gel..Gram.) 15 gm PO Q15M PRN; Protocol PRN Reason: per Hypoglycemia Standing Ord. Insulin Glargine (Insulin Glargine,Hum.Rec.Anlog 100 Unit/Ml 10 Ml Vial) 14 unit SUBCUT BEDTIME [facility] Last Admin: 10/05/21 21:33 Dose: 14 unit Documented by: FLORECITA Insulin Human Lispro (Insulin Lispro 100 Unit/Ml 3 Ml Vial) 0 unit SUBCUT QIDACHS [facility]; Protocol Last Admin: 10/06/21 11:58 Dose: 10 unit Documented by: MEG Lurasidone HCl (Lurasidone Hcl 20 Mg Tablet) 20 mg PO DAILY [facility] Last Admin: 10/06/21 08:33 Dose: 20 mg Documented by: MEG Methylprednisolone Sodium Succinate (Methylprednisolone Sod Succ 40 Mg/Ml Vial) 40 mg IVPUSH Q8H [facility] Last Admin: 10/06/21 11:58 Dose: 40 mg Documented by: MEG Metoprolol Succinate (Metoprolol Succinate Er 50 Mg Tab.Er.24h) 50 mg PO BID [facility]; Protocol Last Admin: 10/06/21 08:33 Dose: 50 mg Documented by: MEG Nicotine (Nicotine 7 Mg Patch.Td24) 7 mg TRANSDERMA DAILY [facility] Last Admin: 10/06/21 08:32 Dose: 7 mg Documented by: MEG Ondansetron HCl (Ondansetron Hcl 4 Mg/2 Ml Vial) 4 mg IVPUSH Q8H PRN PRN Reason: Nausea and Vomiting Pharmacy Consult (Consult Rx Perform Med Rec) 1 each MISCELLANE ONCE PRN PRN Reason: Consult order Polyethylene Glycol (Polyethylene Glycol 3350 17 Gm Powd.Pack) 17 gm PO DAILY [facility] Last Admin: 10/06/21 08:31 Dose: 17 gm Documented by: MEG Senna/Docusate Sodium (Sennosides/Docusate Sodium Tablet) 2 tab PO BID [facility] Last Admin: 10/06/21 08:32 Dose: 2 tab Documented by: MEG Sodium Chloride (0.9 % Sodium Chloride Flush 3 Ml Syringe) 3 ml IVFLUSH QSHIFT [facility] Last Admin: 10/06/21 14:39 Dose: 3 ml Documented by: MEG Vitamin D (Cholecalciferol (Vitamin D3) 25 Mcg Tablet) 25 mcg PO DAILY [facility] Last Admin: 10/06/21 08:32 Dose: 25 mcg Documented by: MEG Labs CBC & Chem 7: 10/06/21 07:27 10/06/21 07:27 Labs: Laboratory Results - last 24 hr 10/05/21 10/05/21 10/06/21 16:13 20:34 07:07 MCV MCH MCHC RDW Plt Count MPV Absolute Nucleated RBC Nucleated RBC % (auto) Anion Gap Estim Creat Clear Calc Estimated GFR POC Glucose 210 H 160 H 167 H Random Glucose Calcium Lactate Dehydrogenase C-Reactive Protein 10/06/21 10/06/21 10/06/21 07:27 07:27 07:27 MCV 87.3 MCH 28.3 MCHC 32.4 RDW 15.0 Plt Count 163 MPV 12.3 Absolute Nucleated RBC 0.000 Nucleated RBC % (auto) 0.0 Anion Gap 13 Estim Creat Clear Calc 100.5 Estimated GFR > 60 POC Glucose Random Glucose 171 H Calcium 8.9 Lactate Dehydrogenase 558 H C-Reactive Protein 0.14 10/06/21 10:52 MCV MCH MCHC RDW Plt Count MPV Absolute Nucleated RBC Nucleated RBC % (auto) Anion Gap Estim Creat Clear Calc Estimated GFR POC Glucose 269 H Random Glucose Calcium Lactate Dehydrogenase C-Reactive Protein Assessment and Plan (1) Acute respiratory failure with hypoxia: Status: Acute (2) COVID-19: Status: Acute Assessment and Plan: 56 year-old male assisted resident with schizoaffective disorder, HOCM, COPD, JUDY, CAD, HTN, and DM2 presented with at least 3 days of cough, fever, and dyspnea.? Found to be septic and hypoxic from Covid-19 pneumonia. acute hypoxic respiratory failure due to Covid-19 pneumonia/ viral sepsis, acute decompensation of COPD overall improved, wean o2 as tolerated, on 4 L of oxygen s/p IV remdesivir,on IV Solu Medrol 40mg q8h , DuoNeb scheduled and as needed ,po azithromycin JUHI resolved hyperkalemia persistent mild hyperkalemia, local in a given thrombocytopenia due to viral sepsis, resolved QT prolongation, chronic monitor, keep K>4 + Mg >2 CAD continue statin, ASA, metoprolol succinate HTN better controlled on home medications DM2 elevated blood sugars likely due to steroid, continue correction-dose lispro; Lantus 10 units at bedtime, A1c 7; takes metformin at home nicotine dependence strongly advised to abstain from smoking, continue nicotine patch schizoaffective disorder continue clozapine, lurasidone, and lorazepam obesity recommend low-calorie diet and exercise VTE ppx LMWH Quality Stroke Does the patient have a stroke diagnosis?: No VTE Prior VTE?: No VTE Risk Level:: Medical - moderate - high VTE Device Contraindication: N/A - Device Ordered VTE Drug Contraindication: N/A - Med Ordered
[2021-10-06 16:04] LABS: Glucose, Whole Blood 149 mg/dL (60-115)
[2021-10-06] MEDS: cloZAPine 25 MG TABLET 50 MG PO (18:18)
[2021-10-06] MEDS: cloZAPine 100 MG TABLET 200 MG PO (18:20)
[2021-10-06] MEDS: Atorvastatin Calcium 20 MG TABLET PO (20:33)
[2021-10-06 21:32] LABS: Glucose, Whole Blood 167 mg/dL (60-115)
[2021-10-06] MEDS: Insulin Glargine,Hum.rec.anlog 100 UNIT/ML 10 ML VIAL 14 UNIT SUBCUT (21:48)
[2021-10-07] MEDS: methylPREDNISolone Sod Succ 40 MG/ML VIAL IVPUSH ×2 (03:10→12:35)
[2021-10-07 07:41] LABS: Glucose, Whole Blood 197 mg/dL (60-115)
[2021-10-07] MEDS: Insulin Lispro 100 UNIT/ML 3 ML VIAL SUBCUT ×2 (07:59→12:34)
[2021-10-07] MEDS: 0.9 % Sodium Chloride Flush 3 ML SYRINGE IVFLUSH (07:59)
[2021-10-07 08:00] VITALS: BP 120/75; PULSE 95; RESP 20; TEMP 36.8; O2SAT 94
[2021-10-07] MEDS: Metoprolol Succinate ER 50 MG TAB.ER.24H PO (08:00)
[2021-10-07] MEDS: amLODIPine Besylate 5 MG TABLET PO (08:00)
[2021-10-07] MEDS: Cholecalciferol (Vitamin D3) 25 MCG TABLET PO (08:00)
[2021-10-07] MEDS: Lurasidone HCl 20 MG TABLET PO (08:00)
[2021-10-07] MEDS: Nicotine 7 MG PATCH.TD24 TRANSDERMA (08:00)
[2021-10-07] MEDS: Aspirin 81 MG TAB.CHEW PO (08:00)
[2021-10-07] MEDS: Famotidine 20 MG TABLET PO (08:00)
--- NOTE | 2021-10-07 08:54 | P.DS_ITS ---
DS: Providers Provider Date of Service: 10/07/21 Date of admission: 09/25/21 11:28 Primary care physician: Regan Hogue MD Consults: 09/25/21 10:02 Consult to Infectious Diseases Routine Consulting Provider: Sydnie Méndez Reason for consultation: covid, hypoxic 09/29/21 08:29 Consult to Pulmonology Routine Consulting Provider: Petar Marcus Reason for consultation: covid hypoxia Has provider been notified: No DS: Diagnosis Discharge Diagnosis (1) Acute respiratory failure with hypoxia: Status: Acute (2) COVID-19: Status: Acute (3) Hyperkalemia: Status: Acute (4) JUHI (acute kidney injury): Status: Acute (5) Constipation: Status: Acute DS: Summary Hospital Course Hospital Course: Admission note HPI 56 year-old man with schizoaffective disorder, HOCM, COPD, JUDY, CAD, HTN, and DM2 who resides at a half-way, from where he was sent to the ER via EMS for 3 days of worsening dry cough and fever to 100.? I note in the EHR that he saw his director plans, Dr Little, 6 days ago, and was reporting dyspnea then.? His main complaints, however, are constipation and urinary retention.? No chest pain.? No nausea or vomiting.? Endorses diffuse myalgias.? He was not vaccinated against Covid-19. In the ED, he was febrile to 102.3 and tachycardic to 98.? He was hypoxic, saturating 88% on room air.? CXR showed multilobar pneumonia.? He had a normal lactate of 1.4.? Creatinine was elevated to 1.96 from a baseline of around 1.? Platelet count was 78.? He tested positive for Covid-19 via [facility]. Other labs of note: sodium 148, ferritin 673, LDH 398, hs-Tn-I 70.9 [66.9 at 3- hr repeat], CRP 9.04, PCT 0.45. Hospital course The patient was admitted to the hospital for acute hypoxic respiratory failure due to Covid-19 pneumonia/ viral sepsis, acute decompensation of COPD ? treated mainly with 10 days of dexamethasone with 5 days of IV remdesivir, 10 continued on IV Solu Medrol 40mg, DuoNeb scheduled and as needed ,po azithromycin with oxygen supplement over the course of hospital stay as we were able to wean him down to room air by the end of it. Patient was able to ambulate with the respiratory therapist with no reported dyspnea. He was noted to have acute kidney injury at time of presentation which was treated with holding nephrotoxic medications and fluids with fair response as the kidneys improved back to baseline. Noticed to have high potassium level which was treated as well and the potassium is back to normal. Is platelets were low at time of admission as a result of the viral infection but improved back to baseline. No new medications needed at time of discharge Time Spent with Patient Time attestation: Total time spent providing and/or coordinating discharge services: Discharge coordination time: Greater than 30 minutes Quality: Stroke Does the patient have a stroke diagnosis?: No Physical Exam Vital Signs: Vital Signs: Last Vital Signs Temp 98.2 F 10/07/21 08:00 Pulse 95 10/07/21 08:00 Resp 20 10/07/21 08:00 BP 120/75 10/07/21 08:00 Pulse Ox 94 10/07/21 08:00 BMI result Body Mass Index 37.2 Const: Other: Constitutional : Alert, not in distress Neck : Normal inspection, Supple Cardiovascular : RRR, S1 S2, no lower extremity edema Respiratory : Good bilateral air entry, no crackles, wheezes or rhonchi, on 4 L of oxygen Gastrointestinal: soft, lax, Normal bowel sounds, Non tender Skin : Warm, Dry Neurological : Alert & interactive, No focal deficit DS: Data Data Completed and Pending Labs on day of discharge: Laboratory Results - last 24 hr 10/06/21 10/06/21 10/06/21 10:52 15:57 21:28 POC Glucose 269 H 149 H 167 H 10/07/21 07:20 POC Glucose 197 H Discharge Plan Discharge Patient Disposition: Home, Self-Care Discharge Diagnosis: COVID-19 infection Referrals: Regan Hogue MD [Primary Care Provider] - 1 Week Discharge Medications: Continued docusate sodium 100 mg capsule 100 mg PO BID@0830,2100 30 Days Qty: 60 RF: 1 nicotine 7 mg/24 hr patch 24 hour 1 patch topical DAILY Qty: 30 RF: 3 metoprolol succinate 50 mg tablet extended release 24 hr 50 mg PO BID Qty: 60 RF: 0 magnesium hydroxide [Whitten Milk of Magnesia] 400 mg/5 mL suspension 5 ml PO BEDTIME PRN (Reason: constipation) Qty: 355 RF: 1 alum-mag hydroxide-simeth [Mylanta Maximum Strength] 400-400-40 mg/5 mL suspension 10 ml PO TID PRN (Reason: indigestion) Qty: 3000 RF: 5 testosterone [AndroGel] 20.25 mg/1.25 gram (1.62 %) gel in metered-dose pump 2 pump topical DAILY 30 Days Qty: 75 RF: 5 Latuda 20 mg Tablet 20 mg PO DAILY 30 Days Qty: 30 RF: 1 clozapine 25 mg Tablet 50 mg PO DAILY@1900 30 Days Qty: 60 RF: 0 lorazepam 1 mg tablet 1 mg PO BID PRN (Reason: Agitation) RF: 0 clozapine 100 mg tablet 200 mg PO DAILY@1900 RF: 0 polyethylene glycol 3350 [Miralax] 17 gram powder in packet 17 g PO DAILY 30 Days Qty: 90 RF: 11 acetaminophen 500 mg tablet 500 mg PO QID PRN (Reason: fever or pain) 30 Days Qty: 120 RF: 11 albuterol sulfate 90 mcg/actuation HFA aerosol inhaler 2 puff INHALATION DAILY PRN (Reason: asthma) 30 Days Qty: 8.5 RF: 3 aspirin 81 mg tablet,chewable 1 tab PO DAILY Qty: 30 RF: 3 atorvastatin 20 mg tablet 20 mg PO BEDTIME Qty: 30 RF: 3 cholecalciferol (vitamin D3) 25 mcg (1,000 unit) tablet 25 mcg PO DAILY Qty: 28 RF: 3 hydrochlorothiazide 12.5 mg capsule 12.5 mg PO DAILY Qty: 30 RF: 3 metformin 500 mg tablet extended release 24 hr 500 mg PO QPM Qty: 30 RF: 2 amlodipine 2.5 mg tablet 2.5 mg PO DAILY Qty: 90 RF: 4 Discharge Orders: Discharge Order (Routine); Ordered 10/07/21 Ordered By: Ann-Marie Norris Diet: advance to usual diet Activity on Discharge: As tolerated Stand Alone Forms: Patient Portal Discharge page Care Plan Goals: Read below Health Concerns: Read below Plan of Treatment: Read below Assessment: you were admitted to the hospital for difficulty breathing found to have COVID- 19 infection treated with antiviral and steroids with good response as you were weaned off the oxygen. Your kidney function was noticed to be injured and that was treated with good response back to her normal baseline. We advise you to quit smoking.
--- NOTE | 2021-10-07 09:14 | MHC.CM.PN ---
Addendum entered by Tangela Pierce 10/07/21 13:45: PT WILL DC BACK TO [facility] AT 1430 HOURS CM CALLED THE [facility] AND INFORMED STAFF CM ALSO CALLED THE HCP, LOKESH [phone] AND LEFT A VM MESSAGE INFORMING HIM OF PTS DC PT WILL BE TRANSPORTED VIA BLS Addendum entered by Tangela Pierce 10/07/21 09:49: CM RECEIVED A CALL FROM [facility]. [facility] REPORTS HE WAS INFORMED BY [facility] STAFF THAT THE PT WOULD NOT BE REQUIRING OXYGEN AT DC. HE REPORTS HE WILL HAVE STAFF MEMBERS CHECK PTS O2 LEVELS A COUPLE TIMES PER DAY WHEN HE RETURNS [facility] REPORTS HE IS ALSO CONCERNED THAT THE PT WILL RETURN TO SMOKING CIGARETTES WHEN HE GETS HOME [facility] IS AWARE THERE IS A COVID TEST PENDING, HOWEVER, PT WILL BE ABLE TO RETURN REGARDLESS OF RESULTS. [facility] REQUESTS THAT CM ARRANGE TRANSPORTATION FOR PT AND ALERT [facility] WHEN HE IS ON HIS WAY Original Note: GINA CALLED [facility] ([phone]) AND INFORMED THEM OF PTS DC ORDER STAFF MEMBER REPORTED HE WAS CONTACTED YESTERDAY AND INFORMED THE PT WOULD BE DISCHARGING ON OXYGEN. HE REPORTS THE RN WAS PLANNING TO TRAIN EVERYONE ON O2 USE AND WAS UNSURE HOW LONG THAT WOULD TAKE CM INFORMED HIM THAT THE PT DID NOT QUALIFY FOR HOME O2 WHEN SEEN BY RT HE REPORTS HE WILL INFORM THE RN, HE ALSO REQUESTED A COVID SWAB BE DONE PRIOR TO DC COVID-19 TEST REQUESTED AWAITING RESULTS
[2021-10-07 11:39] LABS: Influenza A PCR NEGATIVE (Negative); Influenza B PCR NEGATIVE (Negative); Resp Syncy Virus RNA Qual PCR NEGATIVE (Negative); SARS COV2 PCR INHOUSE POSITIVE (Negative)
[2021-10-07 11:55] VITALS: BP 113/68; PULSE 100; RESP 24; TEMP 36.7; O2SAT 93
[2021-10-07 12:30] LABS: Glucose, Whole Blood 297 mg/dL (60-115)
== END 2021-10-07 16:11 | disposition home or self-care (01) | DRG 871 ==
LOC: HO.ED 09:56 → HO.EDOVER 11:33 → HO.IMC 18:51
PROVIDERS: Hospitalist; Internal Medicine; Physician Assistant; Admitting Provider Family Medicine; Emergency Provider Emergency Medicine; PCP Internal Medicine; Visit Provider Student in an Organized Health Care Education/Training Program
DX: A41.89 Other specified sepsis (principal); U07.1 COVID-19; J96.01 Acute respiratory failure with hypoxia; J12.82 Pneumonia due to coronavirus disease 2019; J44.0 Chronic obstructive pulmonary disease with (acute) lower respiratory infection; J44.1 Chronic obstructive pulmonary disease with (acute) exacerbation; N17.9 Acute kidney failure, unspecified; I42.1 Obstructive hypertrophic cardiomyopathy; E87.0 Hyperosmolality and hypernatremia; K59.00 Constipation, unspecified; D69.6 Thrombocytopenia, unspecified; R94.31 Abnormal electrocardiogram [ECG] [EKG]; E66.9 Obesity, unspecified; I10 Essential (primary) hypertension; E87.5 Hyperkalemia; E11.9 Type 2 diabetes mellitus without complications; Z68.37 Body mass index [BMI] 37.0-37.9, adult; F25.9 Schizoaffective disorder, unspecified; I25.10 Atherosclerotic heart disease of native coronary artery without angina pectoris; F17.210 Nicotine dependence, cigarettes, uncomplicated; Z71.6 Tobacco abuse counseling; Z79.82 Long term (current) use of aspirin; Z79.899 Other long term (current) 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
CPT/HCPCS: 0241U; 36415; 51798; 71045; 80048; 80076; 80202; 82550; 82728; 82803; 82947; 83036; 83605; 83615; 83735; 84145; 84153; 84403; 84484; 85025; 85027; 85048; 85379; 86140; 87040; 87147; 87205; 87635; 93005; 94640; 96361; 96374; 99285; 99291; C1758; J1100; J1650; J2270; J2920; J2930; J3262; J3370; J3490

== ENCOUNTER 2021-10-18 13:37 | Outpatient (REF) | payer MEDICARE, MEDICAID, SELFPAY ==
[2021-10-18 15:30] LABS: Appearance Urine CLEAR; Color Urine YELLOW; Glucose Urine UA NEG (NEG); Leukocyte Esterase Urine NEG (NEG); Nitrite Urine NEG (NEG); Specific Gravity - Urine 1.015 (1.005-1.025); Urine Blood NEG (NEG); Urine Ketones NEG (NEG); Urine Protein TRACE MG/DL (NEG-TRACE)
== END 2021-10-18 13:38 | disposition home or self-care (01) ==
LOC: HO.LAB 13:37
PROVIDERS: PCP Internal Medicine; Visit Provider Internal Medicine
DX: N39.0 Urinary tract infection, site not specified (principal)
CPT/HCPCS: 81003

== ENCOUNTER → 2021-10-24 10:20 | Outpatient (BNVA) | payer MEDICARE, MEDICAID, SELFPAY | PROVIDERS: PCP Internal Medicine; Referring Provider Internal Medicine; Visit Provider Internal Medicine | DX: R94.31 Abnormal electrocardiogram [ECG] [EKG] (principal); I42.1 Obstructive hypertrophic cardiomyopathy; I10 Essential (primary) hypertension; F25.0 Schizoaffective disorder, bipolar type; F17.210 Nicotine dependence, cigarettes, uncomplicated | CPT/HCPCS: 99212 ==

== ENCOUNTER → 2021-10-25 19:32 | Outpatient (REF) | payer MEDICARE, MEDICAID, SELFPAY | LOC: HO.SL 19:32 | PROVIDERS: Visit Provider Internal Medicine | DX: G47.33 Obstructive sleep apnea (adult) (pediatric) (principal); E66.9 Obesity, unspecified; F17.200 Nicotine dependence, unspecified, uncomplicated; F25.9 Schizoaffective disorder, unspecified; I10 Essential (primary) hypertension; I25.10 Atherosclerotic heart disease of native coronary artery without angina pectoris | CPT/HCPCS: 95810 ==

== ENCOUNTER → 2021-11-21 10:54 | Outpatient (BNVA) | payer MEDICARE, MEDICAID, SELFPAY | PROVIDERS: PCP Internal Medicine; Visit Provider Internal Medicine | DX: G47.33 Obstructive sleep apnea (adult) (pediatric) (principal); F17.210 Nicotine dependence, cigarettes, uncomplicated; Z86.16 Personal history of COVID-19 | CPT/HCPCS: 99212 ==

== ENCOUNTER → 2021-12-09 11:48 | Outpatient (BNVA) | payer MEDICARE, MEDICAID, SELFPAY | PROVIDERS: PCP Internal Medicine; Visit Provider Urology | DX: E29.1 Testicular hypofunction (principal); N40.0 Benign prostatic hyperplasia without lower urinary tract symptoms | CPT/HCPCS: 51798; 99212 ==

== ENCOUNTER → 2022-02-15 08:24 | Outpatient (BNVA) | payer MEDICARE, MEDICAID, SELFPAY | PROVIDERS: PCP Internal Medicine; Visit Provider Urology | DX: N40.0 Benign prostatic hyperplasia without lower urinary tract symptoms (principal); E29.1 Testicular hypofunction | CPT/HCPCS: Q3014 ==

== ENCOUNTER → 2022-02-20 10:22 | Outpatient (BNVA) | payer MEDICARE, MEDICAID, SELFPAY | PROVIDERS: PCP Internal Medicine; Visit Provider Internal Medicine | DX: G47.33 Obstructive sleep apnea (adult) (pediatric) (principal); G47.34 Idiopathic sleep related nonobstructive alveolar hypoventilation; E66.9 Obesity, unspecified; Z87.891 Personal history of nicotine dependence; Z68.37 Body mass index [BMI] 37.0-37.9, adult | CPT/HCPCS: 99212 ==

== ENCOUNTER → 2022-02-21 08:54 | Outpatient (BNVA) | payer MEDICARE, MEDICAID, SELFPAY | PROVIDERS: PCP Internal Medicine; Visit Provider Nurse Practitioner Family | DX: G47.34 Idiopathic sleep related nonobstructive alveolar hypoventilation (principal) | CPT/HCPCS: 99202 ==

== ENCOUNTER → 2022-05-01 13:31 | Outpatient (BNVA) | payer MEDICARE, MEDICAID, SELFPAY | PROVIDERS: PCP Internal Medicine; Visit Provider Internal Medicine | DX: G47.34 Idiopathic sleep related nonobstructive alveolar hypoventilation (principal); G47.33 Obstructive sleep apnea (adult) (pediatric) | CPT/HCPCS: 99212 ==

== ENCOUNTER 2022-05-14 17:40 | Inpatient (IN) | payer MEDICARE, MEDICAID, SELFPAY ==
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
[2022-05-14 18:17] VITALS: BP 138/86; BP 141/65; PULSE 104; PULSE 96; RESP 18; TEMP 37; O2SAT 96; BMI 42.0
[2022-05-14 19:13] LABS: MANUAL DIFF FLAG NO
[2022-05-14 19:14] LABS: Basophils Percent Auto 0.5 % (0-2); Eosinophils Absolute Auto 0.1 X10*3/uL (0.0-0.4); Eosinophils Percent Auto 0.8 % (0-4); Hematocrit 43.3 % (42.0-52.0); Hemoglobin 14.2 g/dl (14.0-18.0); Imm Gran Abs Auto 0.04 X10*3/uL (0.00-0.03); Imm Gran Pct Auto 0.5 % (0.0-0.4); Lymphocytes Absolute Auto 1.3 X10*3/uL (1.2-4.9); Lymphocytes Percent Auto 16.7 % (20-40); Mean Corpuscular HGB Conc 32.8 g/dl (31.0-36.0); Mean Corpuscular Hemoglobin 28.1 pg (27.0-33.0); Mean Corpuscular Volume 85.6 fL (80.0-98.0); Mean Platelet Volume 12.2 fL (9.4-12.4); Monocytes Absolute Auto 0.6 X10*3/uL (0.1-1.2); Monocytes Percent Auto 7.3 % (2-11); Neutrophils Absolute Auto 5.6 x10*3/uL (2.0-8.3); Neutrophils Percent Auto 74.2 % (45-73); Platelet Count 161 X10*3/uL (160-400); Red Blood Count 5.06 X10*6/uL (4.60-5.80); Red Cell Distribution Width 14.5 % (11.0-16.0); White Blood Count 7.5 X10*3/uL (4.8-10.8)
[2022-05-14 19:30] LABS: COVID-19 Test Negative (Negative); IDNOW Serial# 9DB6401D
[2022-05-14 19:35] LABS: Alanine Aminotransferase 29 U/L (0-40); Albumin Level 4.6 g/dL (3.5-5.0); Alkaline Phosphatase 67 U/L (39-117); Anion Gap 17 (12-20); Aspartate Amino Transferase 21 U/L (5-37); Bilirubin Total 0.4 mg/dL (0.0-1.0); Blood Urea Nitrogen 17 mg/dL (9-16); Calcium 10.6 mg/dL (8.4-10.2); Carbon Dioxide 30 mmol/L (22-29); Chloride 103 mmol/L (96-108); Creatinine Clr Calc Pharmacy 73.4; Estimated Glomerular Filt Rate 50; Ethanol < 10 mg/dL; Glucose Random 146 mg/dL (60-115); Magnesium 1.5 mg/dL (1.6-2.6); Sodium 146 mmol/L (135-145); Total Protein 7.2 g/dL (6.5-8.0)
--- NOTE | 2022-05-14 20:23 | PC.NURSE ---
[facility] george called at [phone] and spoke with Vincenzo, agreed to fax the medication list and notified us that patient has been compliant with his medication, med rec updated comparing the list and pharmacy claim history, copy of med list faxed to pharmacy, pending provider's approval, patient is currently in good behavioral control, will continue to monitor.
[2022-05-14 20:39] LABS: Appearance Urine CLEAR; Color Urine YELLOW; Glucose Urine UA NEG (NEG); Leukocyte Esterase Urine NEG (NEG); Nitrite Urine NEG (NEG); Urine Blood NEG (NEG); Urine Ketones NEG (NEG); Urine Protein NEG (NEG-TRACE)
[2022-05-14 20:55] LABS: Amphetamine Screen Urine Not Detected (Not Detect); Barbiturates, Urine Not Detected (Not Detect); Benzodiazepines Screen Urine Not Detected (Not Detect); Cannabinoid Screen Urine Not Detected (Not Detect); Cocaine Screen Urine Not Detected (Not Detect); Fentanyl, urine Not Detected (Not Detect); Opiate Screen Urine Not Detected (Not Detect); Phencyclidine Screen Urine Not Detected (Not Detect)
--- NOTE | 2022-05-14 21:01 | PHA.MEDREC ---
Pharmacy Consult ? Medication Reconciliation Pharmacy has reviewed the medication reconciliation compeleted by Karri. Karri confirmed last clozaril dose was 05/13/22 with the [facility] staff. Losartan is on patient claim history but not on the medication list sent by staff. All other medications match up. Mary Gonzales, PharmD
[2022-05-14 21:45] VITALS: BP 125/95; PULSE 92; RESP 18; TEMP 36.3; O2SAT 94
[2022-05-14] MEDS: Atorvastatin Calcium 20 MG TABLET PO (21:48)
[2022-05-14] MEDS: Tamsulosin HCL 0.4 MG CAPSULE PO (21:48)
[2022-05-14] MEDS: Docusate Sodium 100 MG CAPSULE PO (21:48)
[2022-05-14] MEDS: cloZAPine 100 MG TABLET 200 MG PO (21:48)
[2022-05-14] MEDS: cloZAPine 25 MG TABLET 50 MG PO (21:48)
[2022-05-14] MEDS: LORazepam 1 MG TABLET PO (21:48)
[2022-05-14] MEDS: metFORMIN HCl ER 500 MG TAB.ER.24H PO (21:48)
[2022-05-14] MEDS: Metoprolol Succinate ER 50 MG TAB.ER.24H PO (21:48)
--- NOTE | 2022-05-14 23:30 | PC.NURSE ---
Per doctor Liao's order, patient was encouraged for fluid intake, since 2100 patient's total fluid intake is 1040 ml and patient has voided x 2, Dr. Liao notified of fluid intake. Patient compliant with his night time medication, currently in bed appears sleeping, no distress observed/reported, disposition per N is section 12 inpatient bed search, will continue to monitor.
--- NOTE | 2022-05-15 | ECG_ITS ---
Test Reason : med clearance Blood Pressure : / mmHG Vent. Rate : 073 BPM Atrial Rate : 073 BPM P-R Int : 168 ms QRS Dur : 112 ms QT Int : 388 ms P-R-T Axes : 073 022 178 degrees QTc Int : 427 ms Normal sinus rhythm Left ventricular hypertrophy with repolarization abnormality ( Sokolow-Vences , [place] product ) Abnormal ECG When compared with ECG of 25-SEP-2021 22:24, T wave inversion more evident in Lateral leads QT has shortened Referred By: Ludwin Christie Electronically Signed By:BRYSON MAURO
[2022-05-15 00:10] VITALS: BP 143/76; PULSE 100; RESP 20; TEMP 36.4; O2SAT 94
--- NOTE | 2022-05-15 02:11 | PC.NURSE ---
Per MD Liao, repeat labs due on this pt. This pt consulting with primary RN Karri regarding order. Per Karri, pt is sleeping after being medicated. Per MD Liao, okay for labs to wait until morning or when pt wakes.
--- NOTE | 2022-05-15 07:12 | PC.NURSE ---
Patient is currently in bed appears sleeping, RN Veronique and MHTs' were made aware of pending CMP lab order
--- NOTE | 2022-05-15 07:20 | PC.NURSE ---
patient appears to remain asleep at present respirations are even and unlabored
[2022-05-15] MEDS: Metoprolol Succinate ER 50 MG TAB.ER.24H PO (08:31)
[2022-05-15] MEDS: Cholecalciferol (Vitamin D3) 25 MCG TABLET PO (08:31)
[2022-05-15] MEDS: Lurasidone HCl 40 MG TABLET PO (08:31)
[2022-05-15] MEDS: LORazepam 1 MG TABLET PO ×2 (08:31→20:56)
[2022-05-15] MEDS: Docusate Sodium 100 MG CAPSULE PO ×2 (08:31→20:56)
[2022-05-15] MEDS: hydroCHLOROthiazide 12.5 MG TABLET PO (08:32)
[2022-05-15] MEDS: Aspirin 81 MG TAB.CHEW PO (08:32)
[2022-05-15] MEDS: polyethylene glycoL 3350 17 GM POWD.PACK PO (08:33)
[2022-05-15 08:52] VITALS: BP 153/93; PULSE 83; RESP 16; O2SAT 96
[2022-05-15 14:00] VITALS: BP 153/89; PULSE 84; RESP 15; TEMP 36.9; O2SAT 95
[2022-05-15 14:19] LABS: Alanine Aminotransferase 26 U/L (0-40); Albumin Level 4.6 g/dL (3.5-5.0); Alkaline Phosphatase 73 U/L (39-117); Anion Gap 16 (12-20); Aspartate Amino Transferase 19 U/L (5-37); Bilirubin Total 0.5 mg/dL (0.0-1.0); Blood Urea Nitrogen 18 mg/dL (9-16); Calcium 10.2 mg/dL (8.4-10.2); Carbon Dioxide 28 mmol/L (22-29); Chloride 104 mmol/L (96-108); Creatinine Clr Calc Pharmacy 79.4; Estimated Glomerular Filt Rate 54; Glucose Random 127 mg/dL (60-115); Potassium 3.8 mmol/L (3.3-5.1); Sodium 144 mmol/L (135-145); Total Protein 7.2 g/dL (6.5-8.0)
--- NOTE | 2022-05-15 17:12 | PC.NURSE ---
pt chatting w staff, calm and cooperative, denies SI/HI.
[2022-05-15] MEDS: Tamsulosin HCL 0.4 MG CAPSULE PO (20:56)
[2022-05-15] MEDS: cloZAPine 25 MG TABLET 50 MG PO (20:56)
[2022-05-15] MEDS: Atorvastatin Calcium 20 MG TABLET PO (20:56)
[2022-05-15] MEDS: metFORMIN HCl ER 500 MG TAB.ER.24H PO (20:56)
[2022-05-15] MEDS: cloZAPine 100 MG TABLET 200 MG PO (20:57)
[2022-05-15 21:00] VITALS: BP 142/99; PULSE 87; RESP 18; TEMP 36.6; O2SAT 94
[2022-05-16 08:19] VITALS: BP 156/0; PULSE 82; RESP 20; TEMP 36.5; O2SAT 97
[2022-05-16 09:16] LABS: Estimated Average Glucose 154 mg/dL
[2022-05-16] MEDS: Metoprolol Succinate ER 50 MG TAB.ER.24H PO ×2 (09:18→21:53)
[2022-05-16] MEDS: LORazepam 1 MG TABLET PO ×2 (09:18→21:54)
[2022-05-16] MEDS: Aspirin 81 MG TAB.CHEW PO (09:18)
[2022-05-16] MEDS: Docusate Sodium 100 MG CAPSULE PO ×2 (09:18→21:54)
[2022-05-16] MEDS: Lurasidone HCl 40 MG TABLET PO (09:18)
[2022-05-16] MEDS: Cholecalciferol (Vitamin D3) 25 MCG TABLET PO (09:19)
[2022-05-16] MEDS: hydroCHLOROthiazide 12.5 MG TABLET PO (09:19)
[2022-05-16 09:21] LABS: Cholesterol 185 mg/dL; HDL Cholesterol 28 mg/dL; LDL Cholesterol Calculated 87 mg/dl; Magnesium 1.8 mg/dL (1.6-2.6); Triglycerides 353 mg/dL
[2022-05-16 09:42] LABS: Free T4 (Free Thyroxine) 0.98 ng/dL (0.71-1.85); Thyroid Stimulating Hormone 0.97 uIU/mL (0.32-4.0)
[2022-05-16 10:48] LABS: Folate 10.9 ng/mL (> or = 4.0); Vitamin B12 336 pg/mL (200-900)
[2022-05-16 17:53] VITALS: BP 124/69; PULSE 98; RESP 20; TEMP 36.2; O2SAT 96
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
[2022-05-16] MEDS: Atorvastatin Calcium 20 MG TABLET PO (21:53)
[2022-05-16] MEDS: cloZAPine 100 MG TABLET 200 MG PO (21:53)
[2022-05-16 21:54] VITALS: BP 145/87; PULSE 89; RESP 18; TEMP 36.6; O2SAT 96
[2022-05-16] MEDS: Tamsulosin HCL 0.4 MG CAPSULE PO (21:54)
[2022-05-16] MEDS: cloZAPine 25 MG TABLET 50 MG PO (21:54)
[2022-05-16] MEDS: metFORMIN HCl ER 500 MG TAB.ER.24H PO (21:54)
[2022-05-17 06:00] VITALS: BP 146/80; PULSE 88; RESP 18; TEMP 37; O2SAT 95
[2022-05-17] MEDS: LORazepam 1 MG TABLET PO ×2 (10:05→23:25)
[2022-05-17] MEDS: Aspirin 81 MG TAB.CHEW PO (10:05)
[2022-05-17] MEDS: Lurasidone HCl 40 MG TABLET PO (10:05)
[2022-05-17] MEDS: hydroCHLOROthiazide 12.5 MG TABLET PO (10:05)
[2022-05-17] MEDS: Cholecalciferol (Vitamin D3) 25 MCG TABLET PO (10:05)
[2022-05-17] MEDS: Docusate Sodium 100 MG CAPSULE PO ×2 (10:05→23:25)
[2022-05-17] MEDS: Metoprolol Succinate ER 50 MG TAB.ER.24H PO ×2 (10:15→23:25)
[2022-05-17 14:00] VITALS: BP 153/92; PULSE 91; RESP 26; TEMP 36.7; O2SAT 97
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
[2022-05-17 22:45] VITALS: BP 138/84; PULSE 92; RESP 18; TEMP 36.1; O2SAT 97
[2022-05-17] MEDS: Atorvastatin Calcium 20 MG TABLET PO (23:25)
[2022-05-17] MEDS: Tamsulosin HCL 0.4 MG CAPSULE PO (23:25)
[2022-05-17] MEDS: cloZAPine 100 MG TABLET 200 MG PO (23:25)
[2022-05-17] MEDS: cloZAPine 25 MG TABLET 50 MG PO (23:25)
[2022-05-17] MEDS: metFORMIN HCl ER 500 MG TAB.ER.24H PO (23:26)
[2022-05-18] MEDS: polyethylene glycoL 3350 17 GM POWD.PACK PO (09:53)
[2022-05-18] MEDS: Docusate Sodium 100 MG CAPSULE PO ×2 (09:54→23:09)
[2022-05-18] MEDS: Lurasidone HCl 40 MG TABLET PO (09:54)
[2022-05-18] MEDS: Metoprolol Succinate ER 50 MG TAB.ER.24H PO ×2 (09:54→23:09)
[2022-05-18] MEDS: Aspirin 81 MG TAB.CHEW PO (09:54)
[2022-05-18] MEDS: LORazepam 1 MG TABLET PO ×2 (09:55→23:09)
[2022-05-18] MEDS: hydroCHLOROthiazide 12.5 MG TABLET PO (09:55)
[2022-05-18] MEDS: Cholecalciferol (Vitamin D3) 25 MCG TABLET PO (09:55)
[2022-05-18 10:00] VITALS: BP 117/58; PULSE 84; RESP 26; TEMP 36.2; O2SAT 96; BMI 37.4
[2022-05-18 14:00] VITALS: BP 124/75; PULSE 94; RESP 24; TEMP 36.2; O2SAT 97
--- NOTE | 2022-05-18 14:32 | HO.PSYCHPN ---
Subjective Subjective Date of Service: 05/18/22 Reason For Visit: Aggression Interim History: pt calm, cooperative. no complaints. focused on issues regarding housing. per staff, tangential. not answering contact questions. bright, happy eves. visible, social. to bed at midnight. slept well. Mental Status Exam Mental Status Exam Narrative: disheveled. dressed in [facility]. no PMA/PMR. speech nml in rate, amount, loudness, tone, latency. thoughts generally linear. affect constricted, normo-intense, non-labile. mood euthymic. no SI/HI/AVH expressed. Diagnostics Vital Signs (24Hr): Vital Signs - 24 hr 05/17/22 22:45 05/18/22 10:00 Temperature 96.9 F 97.2 F Pulse Rate 92 84 Respiratory Rate 18 26 H Blood Pressure 138/84 117/58 L Pulse Oximetry 97 96 Oxygen Delivery Method Room Air Room Air BMI result Body Mass Index 37.4 Labs Results: 05/14/22 19:09 05/15/22 13:52 Medications Medications Current Medications Acetaminophen (Acetaminophen 325 Mg Tablet) 650 mg PO Q6H PRN PRN Reason: Headache/Pain Mild Scale (1-3) Al Hydroxide/Mg Hydroxide (Magnesium Hydrox/Alum Hydrox 30 Ml Oral.Susp) 30 ml PO Q6H PRN PRN Reason: Heartburn/Nausea Aspirin (Aspirin 81 Mg Tab.Chew) 81 mg PO DAILY [facility] Last Admin: 05/18/22 09:54 Dose: 81 mg Atorvastatin Calcium (Atorvastatin Calcium 20 Mg Tablet) 20 mg PO BEDTIME [facility] Last Admin: 05/17/22 23:25 Dose: 20 mg Clozapine (Clozapine 25 Mg Tablet) 50 mg PO BEDTIME [facility] Last Admin: 05/17/22 23:25 Dose: 50 mg Clozapine (Clozapine 100 Mg Tablet) 200 mg PO BEDTIME [facility] Last Admin: 05/17/22 23:25 Dose: 200 mg Docusate Sodium (Docusate Sodium 100 Mg Capsule) 100 mg PO BID [facility] Last Admin: 05/18/22 09:54 Dose: 100 mg Hydrochlorothiazide (Hydrochlorothiazide 12.5 Mg Tablet) 12.5 mg PO DAILY [facility]; Protocol Last Admin: 05/18/22 09:55 Dose: 12.5 mg Hydroxyzine HCl (Hydroxyzine Hcl 25 Mg Tablet) 25 mg PO Q6H PRN PRN Reason: Anxiety Lorazepam (Lorazepam 1 Mg Tablet) 1 mg PO BID [facility] Last Admin: 05/18/22 09:55 Dose: 1 mg Lurasidone HCl (Lurasidone Hcl 40 Mg Tablet) 40 mg PO DAILY [facility] Last Admin: 05/18/22 09:54 Dose: 40 mg Magnesium Hydroxide (Milk Of Magnesia 30 Ml Oral.Susp) 30 ml PO DAILY PRN PRN Reason: Constipation Metformin HCl (Metformin Hcl Er 500 Mg Tab.Er.24h) 500 mg PO BEDTIME [facility] Last Admin: 05/17/22 23:26 Dose: 500 mg Metoprolol Succinate (Metoprolol Succinate Er 50 Mg Tab.Er.24h) 50 mg PO BID [facility]; Protocol Last Admin: 05/18/22 09:54 Dose: 50 mg Polyethylene Glycol (Polyethylene Glycol 3350 17 Gm Powd.Pack) 17 gm PO DAILY [facility] Last Admin: 05/18/22 09:53 Dose: 17 gm Tamsulosin HCl (Tamsulosin Hcl 0.4 Mg Capsule) 0.4 mg PO BEDTIME [facility] Last Admin: 05/17/22 23:25 Dose: 0.4 mg Trazodone HCl (Trazodone Hcl 50 Mg Tablet) 50 mg PO BEDTIME PRN PRN Reason: Insomnia Vitamin D (Cholecalciferol (Vitamin D3) 25 Mcg Tablet) 25 mcg PO DAILY [facility] Last Admin: 05/18/22 09:55 Dose: 25 mcg Allergies Allergies Allergy/AdvReac Type Severity Reaction Status Date / Time lithium [[place]] Allergy Severe TOXICITY Verified 05/14/22 18:17 thiothixene Allergy Severe SWELLING Verified 05/14/22 18:17 barium sulfate Allergy Intermediate NAUSEA & Verified 05/14/22 18:17 [BARIUM SULFATE] VOMITING haloperidol Allergy Intermediate MUSCLE Verified 05/14/22 18:17 TENSION IN LEGS benztropine Allergy Unknown benztropine Verified 05/14/22 18:17 mesylate- unknown diphenhydramine Allergy Unknown urinary Verified 05/14/22 18:17 [From Benadryl] retention fluphenazine Allergy Unknown UNKNOWN Verified 05/14/22 18:17 gabapentin [From NEURONTIN] Allergy Unknown UNKNOWN Verified 05/14/22 18:17 prolixen Allergy Unknown Unknown Uncoded 05/01/22 13:56 Assessment & Plan Assessment & Plan (1) Schizoaffective disorder: Qualifiers: Schizoaffective disorder type: bipolar Qualified Code(s): F25.0 - Schizoaffective disorder, bipolar type Status: Acute Code(s): F25.9 - Schizoaffective disorder, unspecified Plan continue outpt mgmt and observe for stability and quality of behavior. stable and safe since admission. discharge to residence once they are able to accept him. I spent ___20___ minutes with the patient and/or on the patient floor today, greater than?50% of which was spent counseling/coordinating care. Reason for contiued inpatient stay Substantial Risk for: harm to others, inability to function and rapid decompensation
[2022-05-18 23:03] VITALS: BP 137/64; PULSE 88; RESP 18; TEMP 36.7; O2SAT 94
[2022-05-18] MEDS: cloZAPine 25 MG TABLET 50 MG PO (23:08)
[2022-05-18] MEDS: cloZAPine 100 MG TABLET 200 MG PO (23:09)
[2022-05-18] MEDS: Atorvastatin Calcium 20 MG TABLET PO (23:09)
[2022-05-18] MEDS: metFORMIN HCl ER 500 MG TAB.ER.24H PO (23:09)
[2022-05-18] MEDS: Tamsulosin HCL 0.4 MG CAPSULE PO (23:09)
[2022-05-19 07:55] VITALS: BP 145/97; PULSE 92; RESP 16; TEMP 36.3; O2SAT 96
[2022-05-19] MEDS: polyethylene glycoL 3350 17 GM POWD.PACK PO (10:01)
[2022-05-19] MEDS: Metoprolol Succinate ER 50 MG TAB.ER.24H PO ×2 (10:02→22:49)
[2022-05-19] MEDS: Docusate Sodium 100 MG CAPSULE PO ×2 (10:02→22:50)
[2022-05-19] MEDS: hydroCHLOROthiazide 12.5 MG TABLET PO (10:02)
[2022-05-19] MEDS: LORazepam 1 MG TABLET PO (10:02)
[2022-05-19] MEDS: Cholecalciferol (Vitamin D3) 25 MCG TABLET PO (10:02)
[2022-05-19] MEDS: Aspirin 81 MG TAB.CHEW PO (10:02)
[2022-05-19] MEDS: Lurasidone HCl 40 MG TABLET PO (10:03)
--- NOTE | 2022-05-19 15:49 | HO.PSYCHPN ---
Subjective Subjective Date of Service: 05/19/22 Reason For Visit: Aggression Interim History: calm, cooperative. no change in presentation. no notable events or behaviors in the past 24H. per staff, tangential and bizarre. no behavioral issues. pleasant, engaged. eating and sleeping well. Mental Status Exam Mental Status Exam Narrative: disheveled. dressed in [facility]. no PMA/PMR. speech nml in rate, amount, loudness, tone, latency. thoughts generally linear. affect constricted, normo-intense, non-labile. mood euthymic. no SI/HI/AVH expressed. Diagnostics Vital Signs (24Hr): Vital Signs - 24 hr 05/18/22 23:03 05/19/22 07:55 Temperature 98.0 F 97.3 F Pulse Rate 88 92 Respiratory Rate 18 16 Blood Pressure 137/64 145/97 H Pulse Oximetry 94 96 Oxygen Delivery Method Room Air Room Air BMI result Body Mass Index 37.4 Labs Results: 05/14/22 19:09 05/15/22 13:52 Medications Medications Current Medications Acetaminophen (Acetaminophen 325 Mg Tablet) 650 mg PO Q6H PRN PRN Reason: Headache/Pain Mild Scale (1-3) Al Hydroxide/Mg Hydroxide (Magnesium Hydrox/Alum Hydrox 30 Ml Oral.Susp) 30 ml PO Q6H PRN PRN Reason: Heartburn/Nausea Aspirin (Aspirin 81 Mg Tab.Chew) 81 mg PO DAILY [facility] Last Admin: 05/19/22 10:02 Dose: 81 mg Atorvastatin Calcium (Atorvastatin Calcium 20 Mg Tablet) 20 mg PO BEDTIME [facility] Last Admin: 05/18/22 23:09 Dose: 20 mg Clozapine (Clozapine 25 Mg Tablet) 50 mg PO BEDTIME [facility] Last Admin: 05/18/22 23:08 Dose: 50 mg Clozapine (Clozapine 100 Mg Tablet) 200 mg PO BEDTIME [facility] Last Admin: 05/18/22 23:09 Dose: 200 mg Docusate Sodium (Docusate Sodium 100 Mg Capsule) 100 mg PO BID [facility] Last Admin: 05/19/22 10:02 Dose: 100 mg Hydrochlorothiazide (Hydrochlorothiazide 12.5 Mg Tablet) 12.5 mg PO DAILY [facility]; Protocol Last Admin: 05/19/22 10:02 Dose: 12.5 mg Hydroxyzine HCl (Hydroxyzine Hcl 25 Mg Tablet) 25 mg PO Q6H PRN PRN Reason: Anxiety Lorazepam (Lorazepam 1 Mg Tablet) 1 mg PO BID [facility] Last Admin: 05/19/22 10:02 Dose: 1 mg Lurasidone HCl (Lurasidone Hcl 40 Mg Tablet) 40 mg PO DAILY [facility] Last Admin: 05/19/22 10:03 Dose: 40 mg Magnesium Hydroxide (Milk Of Magnesia 30 Ml Oral.Susp) 30 ml PO DAILY PRN PRN Reason: Constipation Metformin HCl (Metformin Hcl Er 500 Mg Tab.Er.24h) 500 mg PO BEDTIME [facility] Last Admin: 05/18/22 23:09 Dose: 500 mg Metoprolol Succinate (Metoprolol Succinate Er 50 Mg Tab.Er.24h) 50 mg PO BID [facility]; Protocol Last Admin: 05/19/22 10:02 Dose: 50 mg Polyethylene Glycol (Polyethylene Glycol 3350 17 Gm Powd.Pack) 17 gm PO DAILY [facility] Last Admin: 05/19/22 10:01 Dose: 17 gm Tamsulosin HCl (Tamsulosin Hcl 0.4 Mg Capsule) 0.4 mg PO BEDTIME [facility] Last Admin: 05/18/22 23:09 Dose: 0.4 mg Trazodone HCl (Trazodone Hcl 50 Mg Tablet) 50 mg PO BEDTIME PRN PRN Reason: Insomnia Vitamin D (Cholecalciferol (Vitamin D3) 25 Mcg Tablet) 25 mcg PO DAILY [facility] Last Admin: 05/19/22 10:02 Dose: 25 mcg Allergies Allergies Allergy/AdvReac Type Severity Reaction Status Date / Time lithium [[place]] Allergy Severe TOXICITY Verified 05/14/22 18:17 thiothixene Allergy Severe SWELLING Verified 05/14/22 18:17 barium sulfate Allergy Intermediate NAUSEA & Verified 05/14/22 18:17 [BARIUM SULFATE] VOMITING haloperidol Allergy Intermediate MUSCLE Verified 05/14/22 18:17 TENSION IN LEGS benztropine Allergy Unknown benztropine Verified 05/14/22 18:17 mesylate- unknown diphenhydramine Allergy Unknown urinary Verified 05/14/22 18:17 [From Benadryl] retention fluphenazine Allergy Unknown UNKNOWN Verified 05/14/22 18:17 gabapentin [From NEURONTIN] Allergy Unknown UNKNOWN Verified 05/14/22 18:17 prolixen Allergy Unknown Unknown Uncoded 05/01/22 13:56 Assessment & Plan Assessment & Plan (1) Schizoaffective disorder: Qualifiers: Schizoaffective disorder type: bipolar Qualified Code(s): F25.0 - Schizoaffective disorder, bipolar type Status: Acute Code(s): F25.9 - Schizoaffective disorder, unspecified Plan continue outpt mgmt and observe for stability and quality of behavior. stable and safe since admission. discharge to residence once they are able to accept him. I spent ___20___ minutes with the patient and/or on the patient floor today, greater than?50% of which was spent counseling/coordinating care. Reason for contiued inpatient stay Substantial Risk for: inability to function and rapid decompensation
[2022-05-19 22:43] VITALS: BP 151/82; PULSE 86; RESP 18; TEMP 36.5; O2SAT 94
[2022-05-19] MEDS: Tamsulosin HCL 0.4 MG CAPSULE PO (22:49)
[2022-05-19] MEDS: cloZAPine 25 MG TABLET 50 MG PO (22:49)
[2022-05-19] MEDS: metFORMIN HCl ER 500 MG TAB.ER.24H PO (22:50)
[2022-05-19] MEDS: cloZAPine 100 MG TABLET 200 MG PO (22:50)
[2022-05-19] MEDS: Atorvastatin Calcium 20 MG TABLET PO (22:50)
[2022-05-20 08:20] VITALS: BP 130/82; PULSE 85; RESP 17; TEMP 36.6; O2SAT 96
[2022-05-20] MEDS: Docusate Sodium 100 MG CAPSULE PO ×2 (08:30→22:48)
[2022-05-20] MEDS: Aspirin 81 MG TAB.CHEW PO (08:30)
[2022-05-20] MEDS: hydroCHLOROthiazide 12.5 MG TABLET PO (08:30)
[2022-05-20] MEDS: Cholecalciferol (Vitamin D3) 25 MCG TABLET PO (08:31)
[2022-05-20] MEDS: Metoprolol Succinate ER 50 MG TAB.ER.24H PO ×2 (08:31→22:49)
[2022-05-20] MEDS: Lurasidone HCl 40 MG TABLET PO (08:31)
[2022-05-20] MEDS: polyethylene glycoL 3350 17 GM POWD.PACK PO (08:32)
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
[2022-05-20 22:00] VITALS: BP 142/8; PULSE 93; RESP 18; TEMP 36.8; O2SAT 95
[2022-05-20 22:45] VITALS: BP 182/86; PULSE 92; RESP 18
[2022-05-20] MEDS: Tamsulosin HCL 0.4 MG CAPSULE PO (22:48)
[2022-05-20] MEDS: metFORMIN HCl ER 500 MG TAB.ER.24H PO (22:48)
[2022-05-20] MEDS: Atorvastatin Calcium 20 MG TABLET PO (22:49)
[2022-05-20] MEDS: cloZAPine 25 MG TABLET 50 MG PO (22:49)
[2022-05-20] MEDS: cloZAPine 100 MG TABLET 200 MG PO (22:49)
[2022-05-21 08:00] VITALS: BP 144/83; PULSE 87; RESP 20; O2SAT 95
[2022-05-21] MEDS: Aspirin 81 MG TAB.CHEW PO (08:33)
[2022-05-21] MEDS: polyethylene glycoL 3350 17 GM POWD.PACK PO (08:33)
[2022-05-21] MEDS: hydroCHLOROthiazide 12.5 MG TABLET PO (08:33)
[2022-05-21] MEDS: Docusate Sodium 100 MG CAPSULE PO ×2 (08:34→23:01)
[2022-05-21] MEDS: Cholecalciferol (Vitamin D3) 25 MCG TABLET PO (08:34)
[2022-05-21] MEDS: Lurasidone HCl 40 MG TABLET PO (08:34)
[2022-05-21] MEDS: Metoprolol Succinate ER 50 MG TAB.ER.24H PO ×2 (08:34→23:01)
[2022-05-21 09:40] LABS: Neut%MD 69.8 %; Neutrophils Absolute Auto 4.7 x10*3/uL (2.0-8.3); WBCANC 6.8 X10*3/uL
--- NOTE | 2022-05-21 12:05 | P.PNPSI_ITS ---
Subjective Subjective Date of Service: 05/21/22 Reason For Visit: Aggression Interim History: Patient presents as concrete. Hopeful for discharge Sunday. No overt paranoia. Denies feeling depressed. Denies feeling unsafe. Denied thoughts of wanting to hurt others. Sleep okay. Medication Compliance: Yes Side effects from medications: No Attending Groups: Yes Review of Systems Acute medical concerns: No Review of Systems Review of Systems Unremarkable Mental Status Exam Mental Status Exam Narrative: Casually dressed. Self-care fair. [place]. Affect flat. No SI. No HI. No agitation. No overt psychosis. Insight and judgment does appear limited Diagnostics Vital Signs (24Hr): Vital Signs - 24 hr 05/20/22 22:00 05/20/22 22:45 05/21/22 08:00 Temperature 98.2 F Pulse Rate 93 92 87 Respiratory Rate 18 18 20 Blood Pressure 142/8 H 182/86 H 144/83 H Pulse Oximetry 95 95 Oxygen Delivery Method Room Air Room Air BMI result Body Mass Index 37.4 Labs Results: 05/14/22 19:09 05/15/22 13:52 Labs: Laboratory Results - last 48 hr 05/21/22 09:27 Absolute Neuts (auto) 4.7 Medications Medications Current Medications Acetaminophen (Acetaminophen 325 Mg Tablet) 650 mg PO Q6H PRN PRN Reason: Headache/Pain Mild Scale (1-3) Al Hydroxide/Mg Hydroxide (Magnesium Hydrox/Alum Hydrox 30 Ml Oral.Susp) 30 ml PO Q6H PRN PRN Reason: Heartburn/Nausea Aspirin (Aspirin 81 Mg Tab.Chew) 81 mg PO DAILY [facility] Last Admin: 05/21/22 08:33 Dose: 81 mg Atorvastatin Calcium (Atorvastatin Calcium 20 Mg Tablet) 20 mg PO BEDTIME [facility] Last Admin: 05/20/22 22:49 Dose: 20 mg Clozapine (Clozapine 25 Mg Tablet) 50 mg PO BEDTIME [facility] Last Admin: 05/20/22 22:49 Dose: 50 mg Clozapine (Clozapine 100 Mg Tablet) 200 mg PO BEDTIME [facility] Last Admin: 05/20/22 22:49 Dose: 200 mg Docusate Sodium (Docusate Sodium 100 Mg Capsule) 100 mg PO BID [facility] Last Admin: 05/21/22 08:34 Dose: 100 mg Hydrochlorothiazide (Hydrochlorothiazide 12.5 Mg Tablet) 12.5 mg PO DAILY [facility]; Protocol Last Admin: 05/21/22 08:33 Dose: 12.5 mg Hydroxyzine HCl (Hydroxyzine Hcl 25 Mg Tablet) 25 mg PO Q6H PRN PRN Reason: Anxiety Lurasidone HCl (Lurasidone Hcl 40 Mg Tablet) 40 mg PO DAILY [facility] Last Admin: 05/21/22 08:34 Dose: 40 mg Magnesium Hydroxide (Milk Of Magnesia 30 Ml Oral.Susp) 30 ml PO DAILY PRN PRN Reason: Constipation Metformin HCl (Metformin Hcl Er 500 Mg Tab.Er.24h) 500 mg PO BEDTIME [facility] Last Admin: 05/20/22 22:48 Dose: 500 mg Metoprolol Succinate (Metoprolol Succinate Er 50 Mg Tab.Er.24h) 50 mg PO BID [facility]; Protocol Last Admin: 05/21/22 08:34 Dose: 50 mg Polyethylene Glycol (Polyethylene Glycol 3350 17 Gm Powd.Pack) 17 gm PO DAILY [facility] Last Admin: 05/21/22 08:33 Dose: 17 gm Senna (Senna [place] Extract Oral Syrup 15 Ml Syrup) 15 ml PO BEDTIME [facility] Last Admin: 05/20/22 22:49 Dose: 15 ml Tamsulosin HCl (Tamsulosin Hcl 0.4 Mg Capsule) 0.4 mg PO BEDTIME [facility] Last Admin: 05/20/22 22:48 Dose: 0.4 mg Trazodone HCl (Trazodone Hcl 50 Mg Tablet) 50 mg PO BEDTIME PRN PRN Reason: Insomnia Vitamin D (Cholecalciferol (Vitamin D3) 25 Mcg Tablet) 25 mcg PO DAILY [facility] Last Admin: 05/21/22 08:34 Dose: 25 mcg Allergies Allergies Allergy/AdvReac Type Severity Reaction Status Date / Time lithium [[employer]] Allergy Severe TOXICITY Verified 05/14/22 18:17 thiothixene Allergy Severe SWELLING Verified 05/14/22 18:17 barium sulfate Allergy Intermediate NAUSEA & Verified 05/14/22 18:17 [BARIUM SULFATE] VOMITING haloperidol Allergy Intermediate MUSCLE Verified 05/14/22 18:17 TENSION IN LEGS benztropine Allergy Unknown benztropine Verified 05/14/22 18:17 mesylate- unknown diphenhydramine Allergy Unknown urinary Verified 05/14/22 18:17 [From Benadryl] retention fluphenazine Allergy Unknown UNKNOWN Verified 05/14/22 18:17 gabapentin [From NEURONTIN] Allergy Unknown UNKNOWN Verified 05/14/22 18:17 prolixen Allergy Unknown Unknown Uncoded 05/01/22 13:56 Assessment & Plan Assessment & Plan (1) Schizoaffective disorder: Qualifiers: Schizoaffective disorder type: bipolar Qualified Code(s): F25.0 - Schizoaffective disorder, bipolar type Status: Acute Code(s): F25.9 - Schizoaffective disorder, unspecified Plan continue outpt mgmt and observe for stability and quality of behavior. stable and safe since admission. discharge to residence once they are able to accept him. 05/21/2022: No changes to current treatment plan. Primary team working on disposition planning I spent minutes with the patient and/or on the patient floor today, greater than?50% of which was spent counseling/coordinating care. Reason for contiued inpatient stay Substantial Risk for: rapid decompensation
[2022-05-21 22:56] VITALS: BP 160/85; PULSE 96; RESP 18; TEMP 36.4; O2SAT 96
[2022-05-21] MEDS: Atorvastatin Calcium 20 MG TABLET PO (23:00)
[2022-05-21] MEDS: cloZAPine 25 MG TABLET 50 MG PO (23:00)
[2022-05-21] MEDS: metFORMIN HCl ER 500 MG TAB.ER.24H PO (23:00)
[2022-05-21] MEDS: cloZAPine 100 MG TABLET 200 MG PO (23:01)
[2022-05-21] MEDS: Tamsulosin HCL 0.4 MG CAPSULE PO (23:01)
[2022-05-22 07:51] VITALS: BP 181/99; PULSE 93; RESP 16; TEMP 36.3; O2SAT 94
[2022-05-22] MEDS: Metoprolol Succinate ER 50 MG TAB.ER.24H PO ×2 (08:12→23:29)
[2022-05-22] MEDS: Cholecalciferol (Vitamin D3) 25 MCG TABLET PO (08:12)
[2022-05-22] MEDS: Aspirin 81 MG TAB.CHEW PO (08:12)
[2022-05-22] MEDS: hydroCHLOROthiazide 12.5 MG TABLET PO (08:12)
[2022-05-22] MEDS: Docusate Sodium 100 MG CAPSULE PO ×2 (08:13→23:29)
[2022-05-22] MEDS: Lurasidone HCl 40 MG TABLET PO (08:13)
[2022-05-22] MEDS: polyethylene glycoL 3350 17 GM POWD.PACK PO (08:14)
[2022-05-22 08:19] LABS: Creatinine Clr Calc Pharmacy 97.7; Estimated Glomerular Filt Rate > 60
--- NOTE | 2022-05-22 12:32 | HO.PSYCHPN ---
Subjective Subjective Date of Service: 05/22/22 Reason For Visit: Aggression Subjective Notes: Conditional Voluntary Interim History: Pt reports he thought someone had stolen his rings. He reports staff at report they found the rings and he feels relieved about it. He reports sleeping and eating well. He denies VH/AH. He is taking medications as prescribed. No behavioral concerns. Review of Systems Review of Systems Unremarkable Yes all other systems are reviewed and are negative Mental Status Exam Mental Status Exam Narrative: Appearance: casually groomed, fair hygiene in NAD Behavior:cooperative psychomotor: no agitation or retardation noted Speech:clear, normal rate/rhythm/volume, spontaneous Thought process:linear Thought content:no overt delusional content, looking forward for discharge tomorrow. Mood: good Affect: congruent, brightens at times, non labile SI:none HI:none VH/AH:none Delusions:no overt Insight/judgment:fair x 2. Memory/cog: alert, oriented x 3. not formally tested. Diagnostics Vital Signs (24Hr): Vital Signs - 24 hr 05/21/22 22:56 05/22/22 07:51 Temperature 97.6 F 97.3 F Pulse Rate 96 93 Respiratory Rate 18 16 Blood Pressure 160/85 H 181/99 H Pulse Oximetry 96 94 Oxygen Delivery Method Room Air Room Air BMI result Body Mass Index 37.4 Labs Results: 05/14/22 19:09 05/22/22 07:51 Labs: Laboratory Results - last 48 hr 05/21/22 05/22/22 09:27 07:51 Absolute Neuts (auto) 4.7 Creatinine 1.03 Estim Creat Clear Calc 97.7 Estimated GFR > 60 Medications Medications Current Medications Acetaminophen (Acetaminophen 325 Mg Tablet) 650 mg PO Q6H PRN PRN Reason: Headache/Pain Mild Scale (1-3) Al Hydroxide/Mg Hydroxide (Magnesium Hydrox/Alum Hydrox 30 Ml Oral.Susp) 30 ml PO Q6H PRN PRN Reason: Heartburn/Nausea Aspirin (Aspirin 81 Mg Tab.Chew) 81 mg PO DAILY [facility] Last Admin: 05/22/22 08:12 Dose: 81 mg Atorvastatin Calcium (Atorvastatin Calcium 20 Mg Tablet) 20 mg PO BEDTIME [facility] Last Admin: 05/21/22 23:00 Dose: 20 mg Clozapine (Clozapine 25 Mg Tablet) 50 mg PO BEDTIME [facility] Last Admin: 05/21/22 23:00 Dose: 50 mg Clozapine (Clozapine 100 Mg Tablet) 200 mg PO BEDTIME [facility] Last Admin: 05/21/22 23:01 Dose: 200 mg Docusate Sodium (Docusate Sodium 100 Mg Capsule) 100 mg PO BID [facility] Last Admin: 05/22/22 08:13 Dose: 100 mg Hydrochlorothiazide (Hydrochlorothiazide 12.5 Mg Tablet) 12.5 mg PO DAILY [facility]; Protocol Last Admin: 05/22/22 08:12 Dose: 12.5 mg Hydroxyzine HCl (Hydroxyzine Hcl 25 Mg Tablet) 25 mg PO Q6H PRN PRN Reason: Anxiety Lurasidone HCl (Lurasidone Hcl 40 Mg Tablet) 40 mg PO DAILY [facility] Last Admin: 05/22/22 08:13 Dose: 40 mg Magnesium Hydroxide (Milk Of Magnesia 30 Ml Oral.Susp) 30 ml PO DAILY PRN PRN Reason: Constipation Metformin HCl (Metformin Hcl Er 500 Mg Tab.Er.24h) 500 mg PO BEDTIME [facility] Last Admin: 05/21/22 23:00 Dose: 500 mg Metoprolol Succinate (Metoprolol Succinate Er 50 Mg Tab.Er.24h) 50 mg PO BID [facility]; Protocol Last Admin: 05/22/22 08:12 Dose: 50 mg Polyethylene Glycol (Polyethylene Glycol 3350 17 Gm Powd.Pack) 17 gm PO DAILY [facility] Last Admin: 05/22/22 08:14 Dose: 17 gm Senna (Senna [place] Extract Oral Syrup 15 Ml Syrup) 15 ml PO BEDTIME [facility] Last Admin: 05/21/22 23:01 Dose: Not Given Tamsulosin HCl (Tamsulosin Hcl 0.4 Mg Capsule) 0.4 mg PO BEDTIME [facility] Last Admin: 05/21/22 23:01 Dose: 0.4 mg Trazodone HCl (Trazodone Hcl 50 Mg Tablet) 50 mg PO BEDTIME PRN PRN Reason: Insomnia Vitamin D (Cholecalciferol (Vitamin D3) 25 Mcg Tablet) 25 mcg PO DAILY [facility] Last Admin: 05/22/22 08:12 Dose: 25 mcg Allergies Allergies Allergy/AdvReac Type Severity Reaction Status Date / Time lithium [[place]] Allergy Severe TOXICITY Verified 05/14/22 18:17 thiothixene Allergy Severe SWELLING Verified 05/14/22 18:17 barium sulfate Allergy Intermediate NAUSEA & Verified 05/14/22 18:17 [BARIUM SULFATE] VOMITING haloperidol Allergy Intermediate MUSCLE Verified 05/14/22 18:17 TENSION IN LEGS benztropine Allergy Unknown benztropine Verified 05/14/22 18:17 mesylate- unknown diphenhydramine Allergy Unknown urinary Verified 05/14/22 18:17 [From Benadryl] retention fluphenazine Allergy Unknown UNKNOWN Verified 05/14/22 18:17 gabapentin [From NEURONTIN] Allergy Unknown UNKNOWN Verified 05/14/22 18:17 prolixen Allergy Unknown Unknown Uncoded 05/01/22 13:56 Assessment & Plan Assessment & Plan (1) Schizoaffective disorder: Qualifiers: Schizoaffective disorder type: bipolar Qualified Code(s): F25.0 - Schizoaffective disorder, bipolar type Status: Acute Code(s): F25.9 - Schizoaffective disorder, unspecified Plan continue outpt mgmt and observe for stability and quality of behavior. stable and safe since admission. discharge to residence once they are able to accept him. 05/21/2022: No changes to current treatment plan. Primary team working on disposition planning 05/22 continue current tx. d/c tomorrow. I spent minutes with the patient and/or on the patient floor today, greater than?50% of which was spent counseling/coordinating care. Reason for contiued inpatient stay Substantial Risk for: stable for discharge
[2022-05-22 23:20] VITALS: BP 155/85; PULSE 93; RESP 18; TEMP 36.8; O2SAT 94
[2022-05-22] MEDS: cloZAPine 25 MG TABLET 50 MG PO (23:28)
[2022-05-22] MEDS: Atorvastatin Calcium 20 MG TABLET PO (23:28)
[2022-05-22] MEDS: Tamsulosin HCL 0.4 MG CAPSULE PO (23:28)
[2022-05-22] MEDS: cloZAPine 100 MG TABLET 200 MG PO (23:28)
[2022-05-22] MEDS: metFORMIN HCl ER 500 MG TAB.ER.24H PO (23:29)
[2022-05-23] MEDS: Lurasidone HCl 40 MG TABLET PO (09:48)
[2022-05-23] MEDS: polyethylene glycoL 3350 17 GM POWD.PACK PO (09:48)
[2022-05-23] MEDS: Metoprolol Succinate ER 50 MG TAB.ER.24H PO (09:48)
[2022-05-23] MEDS: Cholecalciferol (Vitamin D3) 25 MCG TABLET PO (09:48)
[2022-05-23] MEDS: Aspirin 81 MG TAB.CHEW PO (09:49)
[2022-05-23] MEDS: Docusate Sodium 100 MG CAPSULE PO (09:49)
[2022-05-23] MEDS: hydroCHLOROthiazide 12.5 MG TABLET PO (09:49)
--- NOTE | 2022-05-23 11:34 | PC.NURSE ---
Navid is alert and cooperative with discharge process. thought process remains disorganized. He denies ideation plan or intent to harm self or others. he denies physical complaint. He verbalizes intent to attend follow up appointments and take meds as prescribed. He denies questions after discharge teaching.
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
== END 2022-05-23 12:00 | disposition home health service (06) | DRG 885 ==
LOC: HO.ED 05-15 02:28 → HO.PADLT16 05-15 19:59
PROVIDERS: Physician Assistant; Registered Nurse; Admitting Provider Psychiatry & Neurology Psychiatry; Emergency Provider Student in an Organized Health Care Education/Training Program; Visit Provider Psychiatry & Neurology Psychiatry
DX: F25.0 Schizoaffective disorder, bipolar type (principal); I42.1 Obstructive hypertrophic cardiomyopathy; N40.0 Benign prostatic hyperplasia without lower urinary tract symptoms; F17.210 Nicotine dependence, cigarettes, uncomplicated; Z71.6 Tobacco abuse counseling; I25.10 Atherosclerotic heart disease of native coronary artery without angina pectoris; G47.33 Obstructive sleep apnea (adult) (pediatric); J44.9 Chronic obstructive pulmonary disease, unspecified; E66.9 Obesity, unspecified; Z91.14 Patient's other noncompliance with medication regimen; Z20.822 Contact with and (suspected) exposure to COVID-19; Z68.37 Body mass index [BMI] 37.0-37.9, adult; Z88.8 Allergy status to other drugs, medicaments and biological substances; Z79.82 Long term (current) use of aspirin; Z79.84 Long term (current) use of oral hypoglycemic drugs; Z79.899 Other long term (current) 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
CPT/HCPCS: 36415; 80053; 80061; 80307; 81003; 82077; 82565; 82607; 82746; 83036; 83735; 84439; 84443; 85025; 85048; 87635; 93005; 99285

== ENCOUNTER 2022-06-22 09:41 | Outpatient (REF) | payer MEDICARE, MEDICAID, SELFPAY ==
[2022-06-22 11:45] LABS: Prostate Specific Antigen < 0.05 ng/mL (<0.05-4.0)
== END 2022-06-22 09:42 | disposition home or self-care (01) ==
LOC: HO.10HDL 09:41
PROVIDERS: Visit Provider Urology
DX: Z12.5 Encounter for screening for malignant neoplasm of prostate (principal); N40.1 Benign prostatic hyperplasia with lower urinary tract symptoms; N13.8 Other obstructive and reflux uropathy
CPT/HCPCS: 36415; 84153

== ENCOUNTER 2022-07-01 10:44 | Emergency (ER) | payer MEDICARE, MEDICAID, SELFPAY ==
[2022-07-01 10:54] VITALS: BP 140/71; BP 146/94; PULSE 81; PULSE 87; RESP 18; TEMP 36.6; O2SAT 95; BMI 38.7
[2022-07-01 12:23] LABS: MANUAL DIFF FLAG NO
[2022-07-01 12:24] LABS: Basophils Percent Auto 0.7 % (0-2); Eosinophils Absolute Auto 0.1 X10*3/uL (0.0-0.4); Eosinophils Percent Auto 1.1 % (0-4); Hematocrit 40.2 % (42.0-52.0); Hemoglobin 13.1 g/dl (14.0-18.0); Imm Gran Abs Auto 0.02 X10*3/uL (0.00-0.03); Imm Gran Pct Auto 0.3 % (0.0-0.4); Lymphocytes Absolute Auto 1.1 X10*3/uL (1.2-4.9); Lymphocytes Percent Auto 17.5 % (20-40); Mean Corpuscular HGB Conc 32.6 g/dl (31.0-36.0); Mean Corpuscular Hemoglobin 27.9 pg (27.0-33.0); Mean Corpuscular Volume 85.7 fL (80.0-98.0); Mean Platelet Volume 12.5 fL (9.4-12.4); Monocytes Absolute Auto 0.6 X10*3/uL (0.1-1.2); Monocytes Percent Auto 9.3 % (2-11); Neutrophils Absolute Auto 4.3 x10*3/uL (2.0-8.3); Neutrophils Percent Auto 71.1 % (45-73); Platelet Count 146 X10*3/uL (160-400); Red Blood Count 4.69 X10*6/uL (4.60-5.80); Red Cell Distribution Width 14.5 % (11.0-16.0); White Blood Count 6.1 X10*3/uL (4.8-10.8)
[2022-07-01 12:46] LABS: Alanine Aminotransferase 31 U/L (0-40); Albumin Level 4.3 g/dL (3.5-5.0); Alkaline Phosphatase 66 U/L (39-117); Anion Gap 17 (12-20); Aspartate Amino Transferase 19 U/L (5-37); Bilirubin Total 0.2 mg/dL (0.0-1.0); Blood Urea Nitrogen 14 mg/dL (9-16); Calcium 9.1 mg/dL (8.4-10.2); Carbon Dioxide 25 mmol/L (22-29); Chloride 107 mmol/L (96-108); Estimated Glomerular Filt Rate > 60; Ethanol < 10 mg/dL; Glucose Random 123 mg/dL (60-115); Lipase 28 U/L (8-78); Magnesium 1.8 mg/dL (1.6-2.6); Potassium 3.7 mmol/L (3.3-5.1); Sodium 145 mmol/L (135-145); Total Protein 6.6 g/dL (6.5-8.0)
--- NOTE | 2022-07-01 12:47 | ED_ITS ---
HPI - Psych General Chief Complaint: Psychiatric Symptoms Stated Complaint: Crisis Time Seen by Provider: 07/01/22 11:04 Source: patient and EMS Mode of arrival: EMS Limitations: no limitations History of Present Illness HPI Narrative: 57-year-old male with a past medical history of aggression, BPH, cardiac arrhyth taylor, CHF, constipation, COPD, CAD, diabetes, hypertension, hypertrophic obstructive cardiomyopathy, myocardial infarction, obesity, obstructive sleep apnea, prolonged QT interval, hypercholesterolemia and schizoaffective disorder currently at longterm presenting to the ED via EMS requesting to be changed from his longterm at [facility] to long-term care. He reports that he is getting increased anxiety/depression while he is at the longterm that he is at. He does not get along with his housemates. He does not feel like he has any privacy. He denies any SI/HI/auditory visualization or thoughts of self injury. He denies any drug or alcohol usage. He denies any other symptoms complaints or concerns at this time. MD complaint: feels depressed and anxiety Onset (ago): day(s) Duration: constant and getting worse History of same: No Relieving factors: none Exacerbating factors: other (See above) Context: significant life stressor (See above) Associated psychiatric symptoms: depression Associated symptoms: denies other symptoms Treatments prior to arrival: none Related Data Home Medications Medication Instructions Recorded Confirmed alfuzosin 10 mg tablet,extended 1 tab PO BEDTIME 05/14/22 05/14/22 release 24 hr aspirin 81 mg chewable tablet 1 tab PO DAILY 05/14/22 05/14/22 atorvastatin 20 mg tablet 1 tab PO BEDTIME 05/14/22 05/14/22 cholecalciferol (vitamin D3) 25 1 tab PO DAILY 05/14/22 05/14/22 mcg (1,000 unit) tablet clozapine 100 mg tablet 2 tab PO BEDTIME 05/14/22 05/14/22 clozapine 25 mg tablet 2 tab PO BEDTIME 05/14/22 05/14/22 docusate sodium 100 mg capsule 1 cap PO BID 05/14/22 05/14/22 lorazepam 1 mg tablet 1 tab PO BID 05/14/22 05/14/22 lurasidone 40 mg tablet (Latuda) 1 tab PO QAM 05/14/22 05/14/22 metformin 500 mg tablet,extended 1 tab PO BEDTIME 05/14/22 05/14/22 release 24 hr metoprolol succinate 50 mg 1 tab PO BID 05/14/22 05/14/22 tablet,extended release 24 hr polyethylene glycol 3350 17 gram 1 packet PO DAILY 05/14/22 05/14/22 oral powder packet Previous Rx's Medication Instructions Recorded senna leaf extract 176 mg/5 mL 15 ml PO BEDTIME PRN constipation 05/31/22 oral syrup (senna) #237 mL hydrochlorothiazide 12.5 mg capsule 12.5 mg PO DAILY 90 days #90 caps 06/28/22 Allergies Allergy/AdvReac Type Severity Reaction Status Date / Time lithium [[place]] Allergy Severe TOXICITY Verified 05/14/22 18:17 thiothixene Allergy Severe SWELLING Verified 05/14/22 18:17 barium sulfate Allergy Intermediate NAUSEA & Verified 05/14/22 18:17 [BARIUM SULFATE] VOMITING haloperidol Allergy Intermediate MUSCLE Verified 05/14/22 18:17 TENSION IN LEGS benztropine Allergy Unknown benztropine Verified 05/14/22 18:17 mesylate- unknown diphenhydramine Allergy Unknown urinary Verified 05/14/22 18:17 [From Benadryl] retention fluphenazine Allergy Unknown UNKNOWN Verified 05/14/22 18:17 gabapentin [From NEURONTIN] Allergy Unknown UNKNOWN Verified 05/14/22 18:17 prolixen Allergy Unknown Unknown Uncoded 05/01/22 13:56 Review of Systems Review of Systems: Constitutional : No Fever, No Chills ENT/Mouth : No Ear Pain, No Nasal Congestion, No sore throat Eyes: No Eye Pain, No Swelling, No Redness Cardiovascular : No Chest Pain, No SOB Respiratory : No Cough, No Sputum, No Dyspnea Gastrointestinal : No ingestions, No Nausea, No Vomiting, No Diarrhea, No Hematochezia, No Melena Genitourinary : No Dysuria, No Urinary Frequency, No Hematuria Musculoskeletal : No Myalgias Skin : No Skin Lesions, No rash Neuro : No Weakness, No Numbness, No Paresthesias, No Dizziness, No Headache Psych : + Anxiety, + Depression, No SI, No thoughts of self injury, No HI, No AVH, Heme/Lymph: No Lymphadenopathy Endocrine : No Polyuria, No Polydipsia Yes all other systems are reviewed and are negative PMFSH Past Medical History Attestation statement: The following information was validated with the patient. Source: old records reviewed and nursing notes reviewed Medical History Aggression BPH (benign prostatic hyperplasia) Cardiac arrhythmia CHF (congestive heart failure) Constipation COPD (chronic obstructive pulmonary disease) Coronary artery disease Diabetes mellitus Essential hypertension HOCM (hypertrophic obstructive cardiomyopathy) Hypertension Myocardial infarction Nocturnal hypoxemia Obesity (BMI 30-39.9) JUDY (obstructive sleep apnea) Prolonged QT interval Pure hypercholesterolemia Schizoaffective disorder Smoker Surgical History History of intestinal surgery History of transurethral resection of prostate Family History Family History Father Medical history unknown Mother Medical history unknown Sister Alive and well Social History Social History Household Members: Other Household Members Other:: long-term Housing: Other Housing Other:: long-term Do you presently have visiting nurse or other home services: Yes Alcohol intake: former Patient Tobacco Use Status: Former Tobacco user Second Hand Smoke Exposure: No Substance Use Type: Unknown Advance Directives: No Advance Directives Information Provided: Yes service: No Current occupational status: disabled Sexual orientation: Did not discuss. Cognitive needs: Yes Hearing needs: No Vision needs: Yes Physical Exam Vital Signs: Vital Signs: Last Vital Signs Temp 97.8 F 07/01/22 10:54 Pulse 84 07/01/22 14:58 Resp 16 07/01/22 14:58 BP 168/93 H 07/01/22 14:58 Pulse Ox 93 07/01/22 14:58 O2 Del Method 07/01/22 14:58 BMI result Body Mass Index 38.7 vital signs have been reviewed as normal and appeared to be correct. Blood pressure normal. Heart rate normal. Respiration rate normal. Temperature normal. Oxygen saturation normal. Appearance: Alert. Oriented X3. No acute distress. Head: Normal external exam. Normocephalic. Atraumatic. No Farley signs noted. No raccoon eyes noted Eyes: PERRLA. EOMI. Conjunctiva and sclera normal. Eyelids normal. ENT: EAC normal. TM's Normal. Pharynx normal. Uvula midline. Moist mucous membranes. No trismus noted. No drooling noted. No muffled voice noted. Neck: Normal inspection. Neck supple. FROM. No adenopathy. Thyroid Normal. No meningeal signs. No neck mass noted. CVS: Normal heart rate and rhythm. Heart sound normal. No murmurs noted. Pulses normal throughout. Respiratory: No respiratory distress. Painless inspiration. Breath sounds normal. No wheezes/rales/rhonchi noted. Chest nontender. No accessory muscle usage noted or decreased air movement noted. Abdomen: Soft and nontender. Bowel sounds normal in all 4 quadrants. No distention noted. No organomegaly noted. No visible injury noted. Back: No CVA tenderness. Full range of motion noted. Skin: Skin warm and dry. Normal skin color. Normal skin turgor. No rashes/lesions/lacerations noted. Extremities: No lower extremity edema. Extremities exhibit normal range of motion. Extremities nontender. Neuro: Oriented X 3. No motor deficit. No sensory deficit. Reflexes normal. CN's II-XII intact bilaterally? Psych: Appearance grossly normal, well-kept, mental status normal, speech and movement normal, speech clear, patient appears very sad and anxious along with depressed. Is cooperative. Normal thought process. Normal thought content. Normal good insight. Judgment good. Course Course Course Narrative: 11:15am - 57-year-old male with a past medical history of aggression, BPH, cardiac arrhythmia, CHF, constipation, COPD, CAD, diabetes, hypertension, hypertrophic obstructive cardiomyopathy, myocardial infarction, obesity, obstructive sleep apnea, prolonged QT interval, hypercholesterolemia and schizoaffective disorder currently at longterm presenting to the ED via EMS requesting to be changed from his longterm at [facility] to long-term care. He reports that he is getting increased anxiety/depression while he is at the longterm that he is at. He does not get along with his housemates. He does not feel like he has any privacy. He denies any SI/HI/auditory visualization or thoughts of self injury. Plans: Labs and re-evaluate Reevaluation(s) Reevaluation #1: - labs reviewed patient with mild anemia with an H&H of 13.1/40.2. Platelet count 146. Random glucose 123. Otherwise all other labs are within normal limits. - negative for EtOH. - patient is placed in Physician observation because the patient needs more time to be evaluated by crisis/physical therapy and case management. Will continue to monitor. Time: 14:30 Reevaluation #2: - patient is status post evaluated by [facility] patient denies any SI/HI/auditory visualizations thoughts of self-injury. Reports he feels safe at the longterm he is at he just does not want to be there any longer. Therefore at this time patient will be discharged back to the longterm. Time: 14:55 [facility] - Psych Medical Records Attestation: I reviewed the patient's medical records. Lab Data Attestation: I reviewed the patient's lab results. Result diagrams: 07/01/22 12:18 07/01/22 12:18 Labs: Lab Results 07/01/22 07/01/22 Range/Units 12:18 12:18 WBC 6.1 (4.8-10.8) X10*3/uL RBC 4.69 (4.60-5.80) X10*6/uL Hgb 13.1 L (14.0-18.0) g/dl Hct 40.2 L (42.0-52.0) % MCV 85.7 (80.0-98.0) fL MCH 27.9 (27.0-33.0) pg MCHC 32.6 (31.0-36.0) g/dl RDW 14.5 (11.0-16.0) % Plt Count 146 L (160-400) X10*3/uL MPV 12.5 H (9.4-12.4) fL Immature Gran % (Auto) 0.3 (0.0-0.4) % Neut % (Auto) 71.1 (45-73) % Lymph % (Auto) 17.5 L (20-40) % [place] % (Auto) 9.3 (2-11) % Eos % (Auto) 1.1 (0-4) % Baso % (Auto) 0.7 (0-2) % Lymph # (Auto) 1.1 L (1.2-4.9) X10*3/uL [place] # (Auto) 0.6 (0.1-1.2) X10*3/uL Eos # (Auto) 0.1 (0.0-0.4) X10*3/uL Baso # (Auto) 0.0 (0.0-0.2) X10*3/uL Abs Immat Gran (auto) 0.02 (0.00-0.03) X10*3/uL Absolute Neuts (auto) 4.3 (2.0-8.3) x10*3/uL Absolute Nucleated RBC 0.000 (0.0-0.012) X10*3/uL Nucleated RBC % (auto) 0.0 (0.0-0.2) /100WBC Sodium 145 (135-145) mmol/L Potassium 3.7 (3.3-5.1) mmol/L Chloride 107 (96-108) mmol/L Carbon Dioxide 25 (22-29) mmol/L Anion Gap 17 (12-20) BUN 14 (9-16) mg/dL Creatinine 1.13 (0.5-1.4) mg/dL Estim Creat Clear Calc 88.0 Estimated GFR > 60 Random Glucose 123 H (60-115) mg/dL Calcium 9.1 D (8.4-10.2) mg/dL Magnesium 1.8 (1.6-2.6) mg/dL Total Bilirubin 0.2 (0.0-1.0) mg/dL AST 19 (5-37) U/L ALT 31 (0-40) U/L Alkaline Phosphatase 66 (39-117) U/L Total Protein 6.6 (6.5-8.0) g/dL Albumin 4.3 (3.5-5.0) g/dL Lipase 28 (8-78) U/L Ethyl Alcohol < 10 mg/dL Discharge Plan Discharge Clinical Impression: Anxiety, Depression Patient Disposition: Home, Self-Care Instructions: Depression (ED), Anxiety (ED) Prescriptions: No Action senna leaf extract [senna] 176 mg/5 mL syrup 15 ml PO BEDTIME PRN (Reason: constipation) Qty: 237 0RF hydrochlorothiazide 12.5 mg capsule 12.5 mg PO DAILY 90 Days Qty: 90 1RF atorvastatin 20 mg tablet 1 tab PO BEDTIME polyethylene glycol 3350 17 gram powder in packet 1 packet PO DAILY clozapine 100 mg tablet 2 tab PO BEDTIME metoprolol succinate 50 mg tablet extended release 24 hr 1 tab PO BID docusate sodium 100 mg capsule 1 cap PO BID aspirin 81 mg tablet,chewable 1 tab PO DAILY clozapine 25 mg tablet 2 tab PO BEDTIME Rx Instructions: total bedtime dose of 250 mg lorazepam 1 mg tablet 1 tab PO BID alfuzosin 10 mg tablet extended release 24 hr 1 tab PO BEDTIME cholecalciferol (vitamin D3) 25 mcg (1,000 unit) tablet 1 tab PO DAILY Latuda 40 mg tablet 1 tab PO QAM metformin 500 mg tablet extended release 24 hr 1 tab PO BEDTIME Referrals: Regan Hogue MD [Primary Care Provider] -
[2022-07-01 14:39] VITALS: BP 140/71; PULSE 81; O2SAT 95
[2022-07-01 14:58] VITALS: BP 168/93; PULSE 84; RESP 16; O2SAT 93
--- NOTE | 2022-07-01 15:38 | PC.NURSE ---
pt seen by Sheela and is cleared for discharge. pt's detention aware, detention staff member on their way to pick him up.
== END 2022-07-01 16:05 | disposition home or self-care (01) ==
PROVIDERS: Physician Assistant Medical; Emergency Provider Emergency Medicine; PCP Internal Medicine
DX: F32.A Depression, unspecified (principal); F41.9 Anxiety disorder, unspecified; E11.9 Type 2 diabetes mellitus without complications; I11.0 Hypertensive heart disease with heart failure; I50.9 Heart failure, unspecified; E78.00 Pure hypercholesterolemia, unspecified; Z72.89 Other problems related to lifestyle; Z59.2 Discord with neighbors, lodgers and landlord; E66.9 Obesity, unspecified; Z68.38 Body mass index [BMI] 38.0-38.9, adult; Z87.891 Personal history of nicotine dependence; Z79.82 Long term (current) use of aspirin; Z79.02 Long term (current) use of antithrombotics/antiplatelets; Z79.899 Other long term (current) 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; Z79.84 Long term (current) use of oral hypoglycemic drugs
CPT/HCPCS: 36415; 80053; 82077; 83690; 83735; 85025; 97162; 99283; 99284

== ENCOUNTER 2022-08-18 15:36 | Emergency (ER) | payer MEDICARE, MEDICAID, SELFPAY ==
[2022-08-18 15:51] VITALS: BP 126/78; PULSE 100; RESP 16; TEMP 36.5; O2SAT 95; BMI 38.7
--- NOTE | 2022-08-18 16:38 | ED_ITS ---
HPI - Psych General Chief Complaint: Psychiatric Symptoms <MIC Soriano - Last Filed: 08/18/22 21:29> Stated Complaint: crisis <MIC Soriano Last Filed: 08/18/22 21:29> Time Seen by Provider: 08/18/22 16:02 <MIC Soriano Last Filed: 08/18/22 21:29> Source: patient <MIC Soriano - Last Filed: 08/18/22 21:29> Mode of arrival: ambulatory <MIC Soriano Last Filed: 08/18/22 21:29> Limitations: no limitations <MIC Soriano Last Filed: 08/18/22 21:29> History of Present Illness HPI Narrative: 57-year-old male presenting to the emergency department with complaints of anxiety, depression and passive suicidal thoughts times a few days worsening. Patient tells me life has been stressful lately. He tells me he does not have a particular way he would harm himself. He tells me he feels like this often. He reports non med compliance and also reports that recently there are a few medication changes done. Patient reports he also has not been taking his metformin. He is requesting to speak to a compliance review specialist. Tells me seeing fingers. However denies auditory and tactile hallucinations. Denies drugs, alcohol tobacco. Denies medical complaints at this time. <MIC Soriano Last Filed: 08/18/22 21:29> Related Data Home Medications: Home Medications Medication Instructions Recorded Confirmed aspirin 81 mg chewable tablet 1 tab PO DAILY 05/14/22 08/18/22 atorvastatin 20 mg tablet 1 tab PO BEDTIME 05/14/22 08/18/22 cholecalciferol (vitamin D3) 25 1 tab PO DAILY 05/14/22 08/18/22 mcg (1,000 unit) tablet clozapine 100 mg tablet 275 mg PO BEDTIME 05/14/22 08/18/22 lorazepam 1 mg tablet 1 tab PO BID@0900,1400 05/14/22 08/18/22 metoprolol succinate 50 mg 1 tab PO BID 05/14/22 08/18/22 tablet,extended release 24 hr lurasidone 40 mg tablet (Latuda) 60 mg PO QAM 07/04/22 08/18/22 docusate sodium 100 mg capsule 1 cap PO BID 08/18/22 08/18/22 metformin 500 mg tablet,extended 1 tab PO 1600 08/18/22 08/18/22 release 24 hr testosterone 20.25 mg/1.25 gram 40.5 mg topical QAM 08/18/22 08/18/22 (1.62 %) transdermal gel pump Previous Rx's Medication Instructions Recorded hydrochlorothiazide 12.5 mg capsule 12.5 mg PO DAILY 90 days #90 caps 06/28/22 losartan 25 mg tablet 25 mg PO DAILY 30 days #30 tabs 08/04/22 senna leaf extract 176 mg/5 mL 15 ml PO BEDTIME PRN constipation 08/04/22 oral syrup (senna) #237 mL blood sugar diagnostic (FreeStyle #100 ea 08/15/22 Lite Strips) blood-glucose meter (FreeStyle #1 ea 08/15/22 Lite Meter kit) lancets 28 gauge (FreeStyle #100 ea 08/15/22 Lancets) blood sugar diagnostic (Prodigy No #100 ea 08/18/22 Coding strips) blood-glucose meter (Prodigy #1 ea 08/18/22 Autocode Blood Glucose Monitoring System) lancets 28 gauge (Prodigy Lancets) #100 ea 08/18/22 <MIC Soriano - Last Filed: 08/18/22 21:29> Allergies/Adverse Reactions: Allergies Allergy/AdvReac Type Severity Reaction Status Date / Time lithium [[place]] Allergy Severe TOXICITY Verified 08/04/22 10:25 thiothixene Allergy Severe SWELLING Verified 08/04/22 10:25 barium sulfate Allergy Intermediate NAUSEA & Verified 08/04/22 10:25 [BARIUM SULFATE] VOMITING haloperidol Allergy Intermediate MUSCLE Verified 08/04/22 10:25 TENSION IN LEGS benztropine Allergy Unknown benztropine Verified 08/04/22 10:25 mesylate- unknown diphenhydramine Allergy Unknown urinary Verified 08/04/22 10:25 [From Benadryl] retention fluphenazine Allergy Unknown UNKNOWN Verified 08/04/22 10:25 gabapentin [From NEURONTIN] Allergy Unknown UNKNOWN Verified 08/04/22 10:25 prolixen Allergy Unknown Unknown Uncoded 08/04/22 10:25 <MIC Soriano - Last Filed: 08/18/22 21:29> Review of Systems Review of Systems: Constitutional : No Weight loss, No Fever, No Chills, No Fatigue, No Malaise ENT/Mouth : No sore throat, No Rhinorrhea Eyes: No Eye Pain, No Swelling, No Redness Cardiovascular : No Chest Pain, No SOB, No Dyspnea on Exertion, No Orthopnea, No Edema, No Palpitations Respiratory : No Cough, No Sputum, No Wheezing Gastrointestinal : No Nausea, No Vomiting, No Diarrhea, No Constipation, No abdominal Pain, No Hematochezia, No Melena Genitourinary : No Dysuria, No Urinary Frequency, No Hematuria, Musculoskeletal : No joint pain, No Myalgias, No Joint Swelling Skin : No Skin Lesions, No rash Neuro : No Weakness, No Numbness, No Dizziness, No Headache Psych : + Anxiety/Panic, No Depression, No SI/HI All other systems reviewed and are negative <MIC Soriano - Last Filed: 08/18/22 21:29> Yes all other systems are reviewed and are negative <MIC Soriano - Last Filed: 08/18/22 21:29> [facility] Past Medical History Attestation statement: The following information was validated with the patient. <MIC Soriano - Last Filed: 08/18/22 21:29> Source: old records reviewed and nursing notes reviewed <MIC Soriano - Last Filed: 08/18/22 21:29> Medical History: Medical History Aggression BPH (benign prostatic hyperplasia) Cardiac arrhythmia CHF (congestive heart failure) Constipation COPD (chronic obstructive pulmonary disease) Coronary artery disease Diabetes mellitus Essential hypertension HOCM (hypertrophic obstructive cardiomyopathy) Hypertension Myocardial infarction Nocturnal hypoxemia Obesity (BMI 30-39.9) JUDY (obstructive sleep apnea) Prolonged QT interval Pure hypercholesterolemia Schizoaffective disorder Smoker Thought disorder <MIC Soriano - Last Filed: 08/18/22 21:29> Surgical History: Surgical History History of intestinal surgery History of transurethral resection of prostate <MIC Soriano - Last Filed: 08/18/22 21:29> Family History Family History: Family History Father Medical history unknown Mother Medical history unknown Sister Alive and well <MIC Soriano - Last Filed: 08/18/22 21:29> Social History Social History: Social History Household Members: Other Household Members Other:: [facility] Housing: Other Housing Other:: [facility] Do you presently have visiting nurse or other home services: Yes Alcohol intake: former Patient Tobacco Use Status: Former Tobacco user Second Hand Smoke Exposure: No Substance Use Type: Unknown Advance Directives: No Advance Directives Information Provided: Yes service: No Current occupational status: disabled Sexual orientation: Did not discuss. Cognitive needs: Yes Hearing needs: No Vision needs: Yes <MIC Soriano - Last Filed: 08/18/22 21:29> Physical Exam Vital Signs: Vital Signs: Last Vital Signs Temp 98.6 F 08/19/22 06:35 Pulse 90 08/19/22 06:35 Resp 18 08/19/22 06:35 BP 145/84 H 08/19/22 06:35 Pulse Ox 94 08/19/22 06:35 O2 Del Method 08/19/22 06:35 BMI result Body Mass Index 38.7 vss <MIC Soriano - Last Filed: 08/18/22 21:29> Vital Signs: Last Vital Signs Temp 98.6 F 08/19/22 06:35 Pulse 90 08/19/22 06:35 Resp 18 08/19/22 06:35 BP 145/84 H 08/19/22 06:35 Pulse Ox 94 08/19/22 06:35 O2 Del Method 08/19/22 06:35 BMI result Body Mass Index 38.7 <Triston Flower MD - Last Filed: 08/19/22 10:48> Appearance: Alert.? Oriented X3.? No acute distress.? Head: Normocephalic, atraumatic, no step-offs or deformities Eyes: Pupils equal, round and reactive to light.? ENT: Pharynx normal.? Neck: Normal inspection.? Neck supple.? CVS: Normal heart rate and rhythm.? Pulses normal.? Respiratory: No respiratory distress.? Breath sounds normal.? Abdomen: Soft and nontender.? Skin: Skin warm and dry.? Normal skin color.? Normal skin turgor.? Extremities: No lower extremity edema.? No calf ttp. 5/5 strength to bilateral upper and lower extremities Neuro: Oriented X 3.? No motor deficit.? No sensory deficit. CN 2-12 intact <MIC Soriano - Last Filed: 08/18/22 21:29> Course Reevaluation(s) Reevaluation #1: CBC appears to be within normal limits. Chemistry with no acute electrolyte abnormalities requiring intervention. Glucose 172 will be started on home meds. Salicylates acetaminophen negative. COVID negative. This time patient will be placed into physician observation to allow more time to be evaluated by the behavioral health team. At time observation was started patient common cooperative no acute distress will continue to monitor <MIC Soriano - Last Filed: 08/18/22 21:29> Time: 19:15 <MIC Soriano - Last Filed: 08/18/22 21:29> Reevaluation #2: Await for behavior health evaluation, patient stable with stable vital signs no events overnight reported by the nurse will continue with physician observation. <Triston Flower MD - Last Filed: 08/19/22 10:48> Time: 09:33 <Triston Flower MD - Last Filed: 08/19/22 10:48> Reevaluation #3: No SI, no HI, evaluated by N and will be sent back to group home < Triston Flower MD - Last Filed: 08/19/22 10:48> Time: 10:47 <Triston Flower MD - Last Filed: 08/19/22 10:48> Medications Administered Generic Name Dose Route Start Last Admin Trade Name Freq PRN Reason Stop Dose Admin Aspirin 81 mg 08/19/22 09:45 08/19/22 09:44 Aspirin 81 Mg Tab.Chew PO 81 mg DAILY OZZY Administration Docusate Sodium 100 mg 08/19/22 09:45 08/19/22 09:55 Docusate Sodium 100 Mg Capsule PO 100 mg BID OZZY Administration Hydrochlorothiazide 12.5 mg 08/19/22 09:45 08/19/22 09:44 Hydrochlorothiazide 12.5 Mg Tablet PO 12.5 mg DAILY OZZY Administration Protocol Losartan Potassium 25 mg 08/19/22 09:45 08/19/22 09:55 Losartan Potassium 25 Mg Tablet PO 25 mg DAILY OZZY Administration Protocol Lurasidone HCl 60 mg 08/19/22 09:30 08/19/22 09:56 Lurasidone Hcl 20 Mg Tablet PO 60 mg DAILY OZZY Administration Metoprolol Succinate 50 mg 08/19/22 09:45 08/19/22 09:56 Metoprolol Succinate Er 50 Mg Tab.Er.24h PO 50 mg BID OZZY Administration Protocol Vitamin D 25 mcg 08/19/22 09:45 08/19/22 09:46 Cholecalciferol (Vitamin D3) 25 Mcg Tablet PO 25 mcg DAILY OZZY Administration <MIC Soriano - Last Filed: 08/18/22 21:29> Medications Administered Generic Name Dose Route Start Last Admin Trade Name Freq PRN Reason Stop Dose Admin Aspirin 81 mg 08/19/22 09:45 08/19/22 09:44 Aspirin 81 Mg Tab.Chew PO 81 mg DAILY OZZY Administration Docusate Sodium 100 mg 08/19/22 09:45 08/19/22 09:55 Docusate Sodium 100 Mg Capsule PO 100 mg BID OZZY Administration Hydrochlorothiazide 12.5 mg 08/19/22 09:45 08/19/22 09:44 Hydrochlorothiazide 12.5 Mg Tablet PO 12.5 mg DAILY OZZY Administration Protocol Losartan Potassium 25 mg 08/19/22 09:45 08/19/22 09:55 Losartan Potassium 25 Mg Tablet PO 25 mg DAILY OZZY Administration Protocol Lurasidone HCl 60 mg 08/19/22 09:30 08/19/22 09:56 Lurasidone Hcl 20 Mg Tablet PO 60 mg DAILY OZZY Administration Metoprolol Succinate 50 mg 08/19/22 09:45 08/19/22 09:56 Metoprolol Succinate Er 50 Mg Tab.Er.24h PO 50 mg BID OZZY Administration Protocol Vitamin D 25 mcg 08/19/22 09:45 08/19/22 09:46 Cholecalciferol (Vitamin D3) 25 Mcg Tablet PO 25 mcg DAILY OZZY Administration <Triston Flower MD - Last Filed: 08/19/22 10:48> MDM - Psych MDM Narrative Medical decision making narrative: 1643 57-year-old male presents with anxiety, depression, passive suicidal thoughts and non med compliance. Reports not taking metformin as prescribed. Physical examination benign. Plan at this time medical clearance evaluation by the behavioral health team. <MIC Soriano - Last Filed: 08/18/22 21:29> Medical Records Attestation: I reviewed the patient's medical records. <MIC Soriano - Last Filed: 08/18/22 21:29> Lab Data Attestation: I reviewed the patient's lab results. <MIC Soriano - Last Filed: 08/18/22 21:29> Result diagrams: : 08/18/22 16:51 08/18/22 16:51 <MIC Soriano - Last Filed: 08/18/22 21:29> Labs: Lab Results 08/18/22 08/18/22 08/18/22 Range/Units 16:28 16:28 16:51 WBC 7.6 (4.8-10.8) X10*3/uL RBC 4.76 (4.60-5.80) X10*6/uL Hgb 13.6 L (14.0-18.0) g/dl Hct 41.0 L (42.0-52.0) % MCV 86.1 (80.0-98.0) fL MCH 28.6 (27.0-33.0) pg MCHC 33.2 (31.0-36.0) g/dl RDW 14.8 (11.0-16.0) % Plt Count 164 (160-400) X10*3/uL MPV 12.5 H (9.4-12.4) fL Immature Gran % (Auto) 0.4 (0.0-0.4) % Neut % (Auto) 76.1 H (45-73) % Lymph % (Auto) 15.2 L (20-40) % [place] % (Auto) 7.1 (2-11) % Eos % (Auto) 0.7 (0-4) % Baso % (Auto) 0.5 (0-2) % Lymph # (Auto) 1.2 (1.2-4.9) X10*3/uL [place] # (Auto) 0.5 (0.1-1.2) X10*3/uL Eos # (Auto) 0.1 (0.0-0.4) X10*3/uL Baso # (Auto) 0.0 (0.0-0.2) X10*3/uL Abs Immat Gran (auto) 0.03 (0.00-0.03) X10*3/uL Absolute Neuts (auto) 5.8 (2.0-8.3) x10*3/uL Absolute Nucleated RBC 0.000 (0.0-0.012) X10*3/uL Nucleated RBC % (auto) 0.0 (0.0-0.2) /100WBC Sodium (135-145) mmol/L Potassium (3.3-5.1) mmol/L Chloride (96-108) mmol/L Carbon Dioxide (22-29) mmol/L Anion Gap (12-20) BUN (9-16) mg/dL Creatinine (0.5-1.4) mg/dL Estim Creat Clear Calc Estimated GFR Random Glucose (60-115) mg/dL Calcium (8.4-10.2) mg/dL Total Bilirubin (0.0-1.0) mg/dL Direct Bilirubin (0.0-0.5) mg/dL AST (5-37) U/L ALT (0-40) U/L Alkaline Phosphatase (39-117) U/L Total Protein (6.5-8.0) g/dL Albumin (3.5-5.0) g/dL Salicylates (15-30) mg/dL Urine Opiates Screen Not Detected (Not Detect) Urine Fentanyl Screen Not Detected (Not Detect) Acetaminophen (<30) mcg/mL Ur Barbiturates Screen Not Detected (Not Detect) Ur Phencyclidine Scrn Not Detected (Not Detect) Ur Amphetamines Screen Not Detected (Not Detect) U Benzodiazepines Scrn Not Detected (Not Detect) Urine Cocaine Screen Not Detected (Not Detect) U Marijuana (THC) Screen Not Detected (Not Detect) COVID-19 ([facility]) Negative (Negative) COVID-19 Clin Com See Note 08/18/22 08/18/22 Range/Units 16:51 16:51 WBC (4.8-10.8) X10*3/uL RBC (4.60-5.80) X10*6/uL Hgb (14.0-18.0) g/dl Hct (42.0-52.0) % MCV (80.0-98.0) fL MCH (27.0-33.0) pg MCHC (31.0-36.0) g/dl RDW (11.0-16.0) % Plt Count (160-400) X10*3/uL MPV (9.4-12.4) fL Immature Gran % (Auto) (0.0-0.4) % Neut % (Auto) (45-73) % Lymph % (Auto) (20-40) % [place] % (Auto) (2-11) % Eos % (Auto) (0-4) % Baso % (Auto) (0-2) % Lymph # (Auto) (1.2-4.9) X10*3/uL [place] # (Auto) (0.1-1.2) X10*3/uL Eos # (Auto) (0.0-0.4) X10*3/uL Baso # (Auto) (0.0-0.2) X10*3/uL Abs Immat Gran (auto) (0.00-0.03) X10*3/uL Absolute Neuts (auto) (2.0-8.3) x10*3/uL Absolute Nucleated RBC (0.0-0.012) X10*3/uL Nucleated RBC % (auto) (0.0-0.2) /100WBC Sodium 142 (135-145) mmol/L Potassium 4.2 (3.3-5.1) mmol/L Chloride 105 (96-108) mmol/L Carbon Dioxide 21 L (22-29) mmol/L Anion Gap 20 (12-20) BUN 18 H (9-16) mg/dL Creatinine 1.30 (0.5-1.4) mg/dL Estim Creat Clear Calc 76.4 Estimated GFR 57 Random Glucose 172 H D (60-115) mg/dL Calcium 9.6 (8.4-10.2) mg/dL Total Bilirubin 0.3 (0.0-1.0) mg/dL Direct Bilirubin < 0.2 (0.0-0.5) mg/dL AST 27 D (5-37) U/L ALT 21 (0-40) U/L Alkaline Phosphatase 72 (39-117) U/L Total Protein 8.0 D (6.5-8.0) g/dL Albumin 4.5 (3.5-5.0) g/dL Salicylates < 5.0 L Cancelled (15-30) mg/dL Urine Opiates Screen (Not Detect) Urine Fentanyl Screen (Not Detect) Acetaminophen < 1 Cancelled (<30) mcg/mL Ur Barbiturates Screen (Not Detect) Ur Phencyclidine Scrn (Not Detect) Ur Amphetamines Screen (Not Detect) U Benzodiazepines Scrn (Not Detect) Urine Cocaine Screen (Not Detect) U Marijuana (THC) Screen (Not Detect) COVID-19 ([facility]) (Negative) COVID-19 Clin Com <MIC Soriano - Last Filed: 08/18/22 21:29> Lab Results 08/18/22 08/18/22 08/18/22 Range/Units 16:28 16:28 16:51 WBC 7.6 (4.8-10.8) X10*3/uL RBC 4.76 (4.60-5.80) X10*6/uL Hgb 13.6 L (14.0-18.0) g/dl Hct 41.0 L (42.0-52.0) % MCV 86.1 (80.0-98.0) fL MCH 28.6 (27.0-33.0) pg MCHC 33.2 (31.0-36.0) g/dl RDW 14.8 (11.0-16.0) % Plt Count 164 (160-400) X10*3/uL MPV 12.5 H (9.4-12.4) fL Immature Gran % (Auto) 0.4 (0.0-0.4) % Neut % (Auto) 76.1 H (45-73) % Lymph % (Auto) 15.2 L (20-40) % [place] % (Auto) 7.1 (2-11) % Eos % (Auto) 0.7 (0-4) % Baso % (Auto) 0.5 (0-2) % Lymph # (Auto) 1.2 (1.2-4.9) X10*3/uL [place] # (Auto) 0.5 (0.1-1.2) X10*3/uL Eos # (Auto) 0.1 (0.0-0.4) X10*3/uL Baso # (Auto) 0.0 (0.0-0.2) X10*3/uL Abs Immat Gran (auto) 0.03 (0.00-0.03) X10*3/uL Absolute Neuts (auto) 5.8 (2.0-8.3) x10*3/uL Absolute Nucleated RBC 0.000 (0.0-0.012) X10*3/uL Nucleated RBC % (auto) 0.0 (0.0-0.2) /100WBC Sodium (135-145) mmol/L Potassium (3.3-5.1) mmol/L Chloride (96-108) mmol/L Carbon Dioxide (22-29) mmol/L Anion Gap (12-20) BUN (9-16) mg/dL Creatinine (0.5-1.4) mg/dL Estim Creat Clear Calc Estimated GFR Random Glucose (60-115) mg/dL Calcium (8.4-10.2) mg/dL Total Bilirubin (0.0-1.0) mg/dL Direct Bilirubin (0.0-0.5) mg/dL AST (5-37) U/L ALT (0-40) U/L Alkaline Phosphatase (39-117) U/L Total Protein (6.5-8.0) g/dL Albumin (3.5-5.0) g/dL Salicylates (15-30) mg/dL Urine Opiates Screen Not Detected (Not Detect) Urine Fentanyl Screen Not Detected (Not Detect) Acetaminophen (<30) mcg/mL Ur Barbiturates Screen Not Detected (Not Detect) Ur Phencyclidine Scrn Not Detected (Not Detect) Ur Amphetamines Screen Not Detected (Not Detect) U Benzodiazepines Scrn Not Detected (Not Detect) Urine Cocaine Screen Not Detected (Not Detect) U Marijuana (THC) Screen Not Detected (Not Detect) COVID-19 ([facility]) Negative (Negative) COVID-19 Clin Com See Note 08/18/22 08/18/22 Range/Units 16:51 16:51 WBC (4.8-10.8) X10*3/uL RBC (4.60-5.80) X10*6/uL Hgb (14.0-18.0) g/dl Hct (42.0-52.0) % MCV (80.0-98.0) fL MCH (27.0-33.0) pg MCHC (31.0-36.0) g/dl RDW (11.0-16.0) % Plt Count (160-400) X10*3/uL MPV (9.4-12.4) fL Immature Gran % (Auto) (0.0-0.4) % Neut % (Auto) (45-73) % Lymph % (Auto) (20-40) % [place] % (Auto) (2-11) % Eos % (Auto) (0-4) % Baso % (Auto) (0-2) % Lymph # (Auto) (1.2-4.9) X10*3/uL [place] # (Auto) (0.1-1.2) X10*3/uL Eos # (Auto) (0.0-0.4) X10*3/uL Baso # (Auto) (0.0-0.2) X10*3/uL Abs Immat Gran (auto) (0.00-0.03) X10*3/uL Absolute Neuts (auto) (2.0-8.3) x10*3/uL Absolute Nucleated RBC (0.0-0.012) X10*3/uL Nucleated RBC % (auto) (0.0-0.2) /100WBC Sodium 142 (135-145) mmol/L Potassium 4.2 (3.3-5.1) mmol/L Chloride 105 (96-108) mmol/L Carbon Dioxide 21 L (22-29) mmol/L Anion Gap 20 (12-20) BUN 18 H (9-16) mg/dL Creatinine 1.30 (0.5-1.4) mg/dL Estim Creat Clear Calc 76.4 Estimated GFR 57 Random Glucose 172 H D (60-115) mg/dL Calcium 9.6 (8.4-10.2) mg/dL Total Bilirubin 0.3 (0.0-1.0) mg/dL Direct Bilirubin < 0.2 (0.0-0.5) mg/dL AST 27 D (5-37) U/L ALT 21 (0-40) U/L Alkaline Phosphatase 72 (39-117) U/L Total Protein 8.0 D (6.5-8.0) g/dL Albumin 4.5 (3.5-5.0) g/dL Salicylates < 5.0 L Cancelled (15-30) mg/dL Urine Opiates Screen (Not Detect) Urine Fentanyl Screen (Not Detect) Acetaminophen < 1 Cancelled (<30) mcg/mL Ur Barbiturates Screen (Not Detect) Ur Phencyclidine Scrn (Not Detect) Ur Amphetamines Screen (Not Detect) U Benzodiazepines Scrn (Not Detect) Urine Cocaine Screen (Not Detect) U Marijuana (THC) Screen (Not Detect) COVID-19 ([facility]) (Negative) COVID-19 Clin Com <Triston Flower MD - Last Filed: 08/19/22 10:48> Critical Care Time Critical Care Time Critical Care Time: No <MIC Soriano - Last Filed: 08/18/22 21:29> Discharge Plan Discharge Clinical Impression: Depression, Acute anxiety <MIC Soriano - Last Filed: 08/18/22 21:29> Patient Disposition: Home, Self-Care <MIC Soriano - Last Filed: 08/18/22 21:29> Instructions: Anxiety (ED) <MIC Soriano - Last Filed: 08/18/22 21:29> Prescriptions: No Action hydrochlorothiazide 12.5 mg capsule 12.5 mg PO DAILY 90 Days Qty: 90 1RF losartan 25 mg tablet 25 mg PO DAILY 30 Days Qty: 30 2RF (DME) blood-glucose meter [FreeStyle Lite Meter] Kit See Rx Instructions .ROUTE .MEDSUPPLY Qty: 1 0RF Rx Instructions: As directed (DME) lancets [FreeStyle Lancets] 28 gauge misc See Rx Instructions .ROUTE .MEDSUPPLY Qty: 100 12RF Rx Instructions: As directed once a day (DME) FreeStyle Lite Strips Strip See Rx Instructions .ROUTE .MEDSUPPLY Qty: 100 12RF Rx Instructions: As directed once a day (DME) Prodigy No Coding Strip See Rx Instructions .Route Qty: 100 12RF Rx Instructions: As directed once a day (DME) blood-glucose meter [Prodigy Autocode Monitor Syst] Misc See Rx Instructions .Route Qty: 1 0RF Rx Instructions: As directed (DME) lancets [Prodigy Lancets] 28 gauge misc See Rx Instructions .Route Qty: 100 12RF Rx Instructions: As directed once a day docusate sodium 100 mg capsule 1 cap PO BID testosterone 20.25 mg/1.25 gram (1.62 %) gel in metered-dose pump 40.5 mg topical QAM metformin 500 mg tablet extended release 24 hr 1 tab PO 1600 atorvastatin 20 mg tablet 1 tab PO BEDTIME clozapine 100 mg tablet 275 mg PO BEDTIME metoprolol succinate 50 mg tablet extended release 24 hr 1 tab PO BID aspirin 81 mg tablet,chewable 1 tab PO DAILY lorazepam 1 mg tablet 1 tab PO BID@0900,1400 cholecalciferol (vitamin D3) 25 mcg (1,000 unit) tablet 1 tab PO DAILY Latuda 40 mg tablet 60 mg PO QAM senna leaf extract [senna] 176 mg/5 mL syrup 15 ml PO BEDTIME PRN (Reason: constipation) Qty: 237 5RF <MIC Soriano - Last Filed: 08/18/22 21:29> Referrals: Regan Hogue MD [Primary Care Provider] - <MIC Soriano - Last Filed: 08/18/22 21:29>
[2022-08-18 16:49] LABS: Amphetamine Screen Urine Not Detected (Not Detect); Barbiturates, Urine Not Detected (Not Detect); Benzodiazepines Screen Urine Not Detected (Not Detect); Cannabinoid Screen Urine Not Detected (Not Detect); Cocaine Screen Urine Not Detected (Not Detect); Fentanyl, urine Not Detected (Not Detect); Opiate Screen Urine Not Detected (Not Detect); Phencyclidine Screen Urine Not Detected (Not Detect)
[2022-08-18 16:57] LABS: COVID-19 Test Negative (Negative); IDNOW Serial# 16C4AD1C
[2022-08-18 16:58] LABS: MANUAL DIFF FLAG NO
[2022-08-18 16:59] LABS: Basophils Percent Auto 0.5 % (0-2); Eosinophils Absolute Auto 0.1 X10*3/uL (0.0-0.4); Eosinophils Percent Auto 0.7 % (0-4); Hemoglobin 13.6 g/dl (14.0-18.0); Imm Gran Abs Auto 0.03 X10*3/uL (0.00-0.03); Imm Gran Pct Auto 0.4 % (0.0-0.4); Lymphocytes Absolute Auto 1.2 X10*3/uL (1.2-4.9); Lymphocytes Percent Auto 15.2 % (20-40); Mean Corpuscular HGB Conc 33.2 g/dl (31.0-36.0); Mean Corpuscular Hemoglobin 28.6 pg (27.0-33.0); Mean Corpuscular Volume 86.1 fL (80.0-98.0); Mean Platelet Volume 12.5 fL (9.4-12.4); Monocytes Absolute Auto 0.5 X10*3/uL (0.1-1.2); Monocytes Percent Auto 7.1 % (2-11); Neutrophils Absolute Auto 5.8 x10*3/uL (2.0-8.3); Neutrophils Percent Auto 76.1 % (45-73); Platelet Count 164 X10*3/uL (160-400); Red Blood Count 4.76 X10*6/uL (4.60-5.80); Red Cell Distribution Width 14.8 % (11.0-16.0); White Blood Count 7.6 X10*3/uL (4.8-10.8)
[2022-08-18 17:25] LABS: Alanine Aminotransferase 21 U/L (0-40); Albumin Level 4.5 g/dL (3.5-5.0); Alkaline Phosphatase 72 U/L (39-117); Anion Gap 20 (12-20); Aspartate Amino Transferase 27 U/L (5-37); Bilirubin Direct < 0.2 mg/dL (0.0-0.5); Bilirubin Total 0.3 mg/dL (0.0-1.0); Blood Urea Nitrogen 18 mg/dL (9-16); Calcium 9.6 mg/dL (8.4-10.2); Carbon Dioxide 21 mmol/L (22-29); Chloride 105 mmol/L (96-108); Creatinine Clr Calc Pharmacy 76.4; Estimated Glomerular Filt Rate 57; Glucose Random 172 mg/dL (60-115); Potassium 4.2 mmol/L (3.3-5.1); Sodium 142 mmol/L (135-145)
[2022-08-18 17:37] LABS: Acetaminophen LAB < 1 mcg/mL (<30); Salicylate < 5.0 mg/dL (15-30)
--- NOTE | 2022-08-18 19:18 | PC.NURSE ---
Spoke with CARE team, they stated someone will be coming to meet with pt. They said that I did not have to do BHN smartsheet at this time.
[2022-08-18 20:30] VITALS: BP 148/87; PULSE 89; RESP 18; TEMP 36.1; O2SAT 95
--- NOTE | 2022-08-18 20:41 | PHA.MEDREC ---
Pharmacy Consult ? Medication Reconciliation Pharmacy has completed the medication reconciliation. Spoke to patient. Knew medication but not which were taken in am vs pm. Did take am meds
--- NOTE | 2022-08-18 21:32 | MHC.CARE ---
CARE Team met with pt in [facility].? Pt is alert, oriented and engaged. Pt denies SI/HI & AH/VH.?He reported that he asked his PCP Dr. Hogue to take him off of the metformin and the provider did. He reported his psychiatrist, Dr. Rodríguez increased his clozaril. Pt. reports an increase in his blood pressure since these medication changes. He reported he is angry with himself for requesting to taken off of his metformin. T/W spoke with group leader wafer polishing Renu, she reported Pt. has been manic for about 3 months. 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 Dilma contacted Renu to pick him up and Renu transported him to [facility]. Renu reported she has no safety concerns and [facility]. Per Renu, she is the only one working tonight and will have staff pick him up in the morning. Per Renu, Pt. is seeing Dr. Hogue on 10/23/[address] Rodríguez 10/24/22. Plan is for [facility] to be [facility] the [facility].? assisted staff will picker box operator Pt. in the morning and follow up with PCP and psychiatrist to reschedule current appts to the near future. This plan was discussed with and agreed upon with PRANAV Epps and MIC Soriano.
[2022-08-19 06:35] VITALS: BP 145/84; PULSE 90; RESP 18; TEMP 37; O2SAT 94
[2022-08-19] MEDS: hydroCHLOROthiazide 12.5 MG TABLET PO (09:44)
[2022-08-19] MEDS: Docusate Sodium 100 MG CAPSULE PO ×2 (09:44→09:55)
[2022-08-19] MEDS: Aspirin 81 MG TAB.CHEW PO (09:44)
[2022-08-19] MEDS: Cholecalciferol (Vitamin D3) 25 MCG TABLET PO (09:46)
[2022-08-19] MEDS: Losartan Potassium 25 MG TABLET PO (09:55)
[2022-08-19] MEDS: Metoprolol Succinate ER 50 MG TAB.ER.24H PO (09:56)
[2022-08-19] MEDS: Lurasidone HCl 20 MG TABLET 60 MG PO (09:56)
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
== END 2022-08-19 11:04 | disposition home or self-care (01) ==
PROVIDERS: Emergency Provider Student in an Organized Health Care Education/Training Program; PCP Internal Medicine
DX: F33.1 Major depressive disorder, recurrent, moderate (principal); R45.851 Suicidal ideations; F41.1 Generalized anxiety disorder; F43.0 Acute stress reaction; Z79.899 Other long term (current) 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; Z20.822 Contact with and (suspected) exposure to COVID-19
CPT/HCPCS: 36415; 80053; 80143; 80179; 80307; 82248; 85025; 87635; 99284

== ENCOUNTER 2022-08-25 17:11 | Emergency (ER) | payer MEDICARE, MEDICAID, SELFPAY ==
--- NOTE | ~2022-08-25 | XR_ITS ---
EXAMINATION: XR knee LT 4V CLINICAL INFORMATION: Reason for Exam fall, pain COMPARISON: Knee radiographs 08/12/2021 TECHNIQUE: Four views of the knee XR/XR knee LT 4V FINDINGS/IMPRESSION: * Marked soft tissue swelling overlying the dorsum of the knee. Quadriceps tendon and Achilles tendon enthesopathy is seen underlying the most marked region of the swelling with discontinuity of the enthesophytes with respect to the patella, which could reflect fractured enthesophytes. * New small suprapatellar joint effusion. * Mild tricompartmental degenerative changes of the knee with spurring of the tibial spines and small patellofemoral and patellofemoral compartment osteophytes.
[2022-08-25 17:19] VITALS: BP 153/84; PULSE 83; RESP 16; TEMP 37.4; O2SAT 96; BMI 36.6
--- NOTE | 2022-08-25 17:19 | ED.LOWEXIN ---
HPI - Extremity Injury (Lower) General Chief Complaint: Extremity Injury, Lower Stated Complaint: L KNEE PAIN S/P FALL DAYS AGO Source: patient Mode of arrival: EMS Limitations: no limitations History of Present Illness HPI Narrative: Patient is a 49-year-old male who presents emergency department via EMS for evaluation of traumatic left knee pain. He reports a mechanical fall 2 days ago landing on to the bilateral hands and bilateral knees. He has had persistent pain to the left knee since the fall. Has trialed oral Tylenol with only minimal relief. He is coming from a care home today. Denies numbness or tingling or cold sensation to the lower leg/foot. Denies any additional injury. Related Data Home Medications Medication Instructions Recorded Confirmed aspirin 81 mg chewable tablet 1 tab PO DAILY 05/14/22 08/18/22 atorvastatin 20 mg tablet 1 tab PO BEDTIME 05/14/22 08/18/22 cholecalciferol (vitamin D3) 25 1 tab PO DAILY 05/14/22 08/18/22 mcg (1,000 unit) tablet clozapine 100 mg tablet 275 mg PO BEDTIME 05/14/22 08/18/22 lorazepam 1 mg tablet 1 tab PO BID@0900,1400 05/14/22 08/18/22 metoprolol succinate 50 mg 1 tab PO BID 05/14/22 08/18/22 tablet,extended release 24 hr lurasidone 40 mg tablet (Latuda) 60 mg PO QAM 07/04/22 08/18/22 docusate sodium 100 mg capsule 1 cap PO BID 08/18/22 08/18/22 metformin 500 mg tablet,extended 1 tab PO 1600 08/18/22 08/18/22 release 24 hr testosterone 20.25 mg/1.25 gram 40.5 mg topical QAM 08/18/22 08/18/22 (1.62 %) transdermal gel pump Previous Rx's Medication Instructions Recorded hydrochlorothiazide 12.5 mg capsule 12.5 mg PO DAILY 90 days #90 caps 06/28/22 losartan 25 mg tablet 25 mg PO DAILY 30 days #30 tabs 08/04/22 senna leaf extract 176 mg/5 mL 15 ml PO BEDTIME PRN constipation 08/04/22 oral syrup (senna) #237 mL blood sugar diagnostic (FreeStyle #100 ea 08/15/22 Lite Strips) blood-glucose meter (FreeStyle #1 ea 08/15/22 Lite Meter kit) lancets 28 gauge (FreeStyle #100 ea 08/15/22 Lancets) blood sugar diagnostic (Prodigy No #100 ea 08/18/22 Coding strips) blood-glucose meter (Prodigy #1 ea 08/18/22 Autocode Blood Glucose Monitoring System) lancets 28 gauge (Prodigy Lancets) #100 ea 08/18/22 Allergies Allergy/AdvReac Type Severity Reaction Status Date / Time lithium [[place]] Allergy Severe TOXICITY Verified 08/04/22 10:25 thiothixene Allergy Severe SWELLING Verified 08/04/22 10:25 barium sulfate Allergy Intermediate NAUSEA & Verified 08/04/22 10:25 [BARIUM SULFATE] VOMITING haloperidol Allergy Intermediate MUSCLE Verified 08/04/22 10:25 TENSION IN LEGS benztropine Allergy Unknown benztropine Verified 08/04/22 10:25 mesylate- unknown diphenhydramine Allergy Unknown urinary Verified 08/04/22 10:25 [From Benadryl] retention fluphenazine Allergy Unknown UNKNOWN Verified 08/04/22 10:25 gabapentin [From NEURONTIN] Allergy Unknown UNKNOWN Verified 08/04/22 10:25 prolixen Allergy Unknown Unknown Uncoded 08/04/22 10:25 Review of Systems Review of Systems: Musculoskeletal: Positive knee pain as noted in HPI Yes all other systems are reviewed and are negative [facility] Past Medical History Attestation statement: The following information was validated with the patient. Source: old records reviewed Medical History Aggression BPH (benign prostatic hyperplasia) Cardiac arrhythmia CHF (congestive heart failure) Constipation COPD (chronic obstructive pulmonary disease) Coronary artery disease Diabetes mellitus Essential hypertension HOCM (hypertrophic obstructive cardiomyopathy) Hypertension Myocardial infarction Nocturnal hypoxemia Obesity (BMI 30-39.9) JUDY (obstructive sleep apnea) Prolonged QT interval Pure hypercholesterolemia Schizoaffective disorder Smoker Thought disorder Surgical History History of intestinal surgery History of transurethral resection of prostate Family History Family History Father Medical history unknown Mother Medical history unknown Sister Alive and well Social History Social History Household Members: Other Household Members Other:: care home Housing: Other Housing Other:: care home Do you presently have visiting nurse or other home services: Yes Alcohol intake: former Patient Tobacco Use Status: Former Tobacco user Second Hand Smoke Exposure: No Substance Use Type: Unknown Advance Directives: No Advance Directives Information Provided: No service: No Current occupational status: disabled Sexual orientation: Did not discuss. Cognitive needs: Yes Hearing needs: No Vision needs: Yes Physical Exam Vital Signs: Vital Signs: Last Vital Signs Temp 99.4 F 08/25/22 17:19 Pulse 83 08/25/22 17:19 Resp 16 08/25/22 17:19 BP 153/84 H 08/25/22 17:19 Pulse Ox 96 08/25/22 17:19 O2 Del Method 08/25/22 17:19 BMI result Body Mass Index 36.6 Appearance: Alert.?Oriented to person, place and time. No acute distress.?Normal affect. Eyes: Pupils equal, round and reactive to light.? ENT: Pharynx normal.?? Neck: Normal inspection.? Neck supple.?? CVS: Heart sounds normal. Normal heart rate and rhythm.? Pulses normal.?? Respiratory: No respiratory distress.? Lung sounds clear to auscultation bilaterally?? Abdomen: Soft and non-tender. Normoactive bowel sounds. Skin: Skin warm and dry.? Normal skin color.? Extremities: No lower extremity edema.? No calf ttp.?left knee with localized swelling, no erythema or warmth, joint effusion is present, diffuse tenderness. 2+ DP/PT pulse bilaterally. No obvious deformity. Able to flex greater than 90 degrees in able to put leg in full extension. Superficial abrasions present to left anterior knee. Neuro: Moves all extremities spontaneously. Sensation intact bilaterally. . No focal neuro deficits. Ambulates with antalgic gait. Course Course Course Narrative: Patient is a 57-year-old male past medical history of BPH, CHF, COPD, CAD, DM, HTN, ME, HLD, schizophrenia who presents to emergency department for evaluation of traumatic left knee pain. No obvious deformities upon evaluation, he is able to weight bear though he does have an antalgic gait. Extremity is neurovascularly intact distally. No significant erythema, warmth, rashes, or lesions, does not appear consistent with septic joint. Last took acetaminophen at 13:30, will receive ibuprofen while in the emergency department. Reevaluation(s) Reevaluation #1: XR reveals marked soft tissue swelling overlying the dorsum of the knee, quadriceps tendon and Achilles tendon enthesopathy seen underlying discontinuity of the enthesophytes with respect to the patella which may refer fractured enosthesophytes. Reviewed this case with orthopedic production sorter Jazz Dong, who advised no suspicion for quadriceps tendon rupture or patella tendon rupture no additional imaging required. Low suspicion for either, patient is able to weight bear, actively able to straight leg raise the extremity maintain passive extension without difficulty. No significant ecchymosis present. Patella is stationary and symmetrical when compared to the right. Discussed plan of care for discharge back to care home, rest, ice, Luis bandage for compression, elevation of extremity when resting. Acetaminophen/ibuprofen as needed for pain. Time: 18:23 Medications Administered Discontinued Medications Generic Name Dose Route Start Last Admin Trade Name Chelsy PRN Reason Stop Dose Admin Ibuprofen 600 mg 08/25/22 17:18 08/25/22 17:40 Ibuprofen 600 Mg Tablet PO 08/25/22 17:19 600 mg ONCE ONE Administration MDM - Extremity Injury (Lower) Medical Records Attestation: I reviewed the patient's medical records. Imaging Data XR knee: Radiologist's impression: XR/XR knee LT 4V FINDINGS/IMPRESSION: ? *? Marked soft tissue swelling overlying the dorsum of the knee. Quadriceps tendon and Achilles tendon enthesopathy is seen underlying the most marked region of the swelling with discontinuity of the enthesophytes with respect to the patella, which could reflect fractured enthesophytes. ? *? New small suprapatellar joint effusion. ? *? Mild tricompartmental degenerative changes of the knee with spurring of the tibial spines and small patellofemoral and patellofemoral compartment osteophytes. Discharge Plan Discharge Clinical Impression: Pain in left knee Patient Disposition: Home, Self-Care Instructions: Knee Pain (ED), R.I.C.E. Treatment (ED) Additional Instructions: Be sure to rest over the next few days, apply ice to the area for 10-15 minutes 4-6 times daily, use Luis bandage for compression, elevate your leg above the level of your chest when resting. Over the next 3 days; You can take ibuprofen 200 mg, 3 tablets (600mg) every 6-8 hours as needed for pain, in addition to Tylenol 500 mg, 2 tablets (1,000mg) every 4-6 hours as needed for pain, but not to exceed 3 doses daily (3,000mg).? Follow-up with primary care provider Return to emergency department any new or worsening symptoms or concerns. Prescriptions: No Action hydrochlorothiazide 12.5 mg capsule 12.5 mg PO DAILY 90 Days Qty: 90 1RF losartan 25 mg tablet 25 mg PO DAILY 30 Days Qty: 30 2RF (DME) blood-glucose meter [FreeStyle Lite Meter] Kit See Rx Instructions .ROUTE .MEDSUPPLY Qty: 1 0RF Rx Instructions: As directed (DME) lancets [FreeStyle Lancets] 28 gauge misc See Rx Instructions .ROUTE .MEDSUPPLY Qty: 100 12RF Rx Instructions: As directed once a day (DME) FreeStyle Lite Strips Strip See Rx Instructions .ROUTE .MEDSUPPLY Qty: 100 12RF Rx Instructions: As directed once a day (DME) Prodigy No Coding Strip See Rx Instructions .Route Qty: 100 12RF Rx Instructions: As directed once a day (DME) blood-glucose meter [Prodigy Autocode Monitor Syst] Misc See Rx Instructions .Route Qty: 1 0RF Rx Instructions: As directed (DME) lancets [Prodigy Lancets] 28 gauge misc See Rx Instructions .Route Qty: 100 12RF Rx Instructions: As directed once a day docusate sodium 100 mg capsule 1 cap PO BID testosterone 20.25 mg/1.25 gram (1.62 %) gel in metered-dose pump 40.5 mg topical QAM metformin 500 mg tablet extended release 24 hr 1 tab PO 1600 atorvastatin 20 mg tablet 1 tab PO BEDTIME clozapine 100 mg tablet 275 mg PO BEDTIME metoprolol succinate 50 mg tablet extended release 24 hr 1 tab PO BID aspirin 81 mg tablet,chewable 1 tab PO DAILY lorazepam 1 mg tablet 1 tab PO BID@0900,1400 cholecalciferol (vitamin D3) 25 mcg (1,000 unit) tablet 1 tab PO DAILY Latuda 40 mg tablet 60 mg PO QAM senna leaf extract [senna] 176 mg/5 mL syrup 15 ml PO BEDTIME PRN (Reason: constipation) Qty: 237 5RF Referrals: Regan Hogue MD [Primary Care Provider] -
[2022-08-25] MEDS: Ibuprofen 600 MG TABLET PO (17:40)
[2022-08-25 19:34] VITALS: BP 139/84; PULSE 84; RESP 16; O2SAT 95
== END 2022-08-25 19:36 | disposition home or self-care (01) ==
PROVIDERS: Emergency Provider Emergency Medicine; PCP Internal Medicine
DX: M25.562 Pain in left knee (principal)
CPT/HCPCS: 73564; 99283; 99284

== ENCOUNTER → 2022-09-20 13:04 | Outpatient (BNVA) | payer MEDICARE, MEDICAID, SELFPAY | PROVIDERS: PCP Internal Medicine; Visit Provider Urology | DX: N40.0 Benign prostatic hyperplasia without lower urinary tract symptoms (principal); E29.1 Testicular hypofunction | CPT/HCPCS: Q3014 ==

== ENCOUNTER → 2022-10-23 10:14 | Outpatient (BNVA) | payer MEDICARE, MEDICAID, SELFPAY | PROVIDERS: PCP Internal Medicine; Visit Provider Internal Medicine | DX: G47.33 Obstructive sleep apnea (adult) (pediatric) (principal); G47.34 Idiopathic sleep related nonobstructive alveolar hypoventilation; E66.9 Obesity, unspecified; Z68.36 Body mass index [BMI] 36.0-36.9, adult; Z87.891 Personal history of nicotine dependence | CPT/HCPCS: 99212 ==

== ENCOUNTER → 2023-01-03 14:04 | Outpatient (BNVA) | payer MEDICARE, MEDICAID, SELFPAY | PROVIDERS: PCP Internal Medicine; Visit Provider Urology ==

== ENCOUNTER 2023-03-07 09:51 | Outpatient (REF) | payer MEDICARE, MEDICAID, SELFPAY ==
[2023-03-07 10:44] LABS: Hematocrit 39.6 % (42.0-52.0); Hemoglobin 12.4 g/dl (14.0-18.0); Mean Corpuscular HGB Conc 31.3 g/dl (31.0-36.0); Mean Corpuscular Hemoglobin 26.9 pg (27.0-33.0); Mean Corpuscular Volume 85.9 fL (80.0-98.0); Mean Platelet Volume 12.2 fL (9.4-12.4); Platelet Count 157 X10*3/uL (160-400); Red Blood Count 4.61 X10*6/uL (4.60-5.80); Red Cell Distribution Width 15.1 % (11.0-16.0); White Blood Count 7.3 X10*3/uL (4.8-10.8)
[2023-03-07 11:32] LABS: Prostate Specific Antigen < 0.10 ng/mL (<0.05-4.0)
[2023-03-12 11:58] LABS: Testosterone, Total 184 ng/dL (250-1100)
== END 2023-03-07 09:52 | disposition home or self-care (01) ==
LOC: HO.LAB 09:51
PROVIDERS: Urology; PCP Internal Medicine; Visit Provider Internal Medicine
DX: E29.1 Testicular hypofunction (principal); E11.9 Type 2 diabetes mellitus without complications; Z12.5 Encounter for screening for malignant neoplasm of prostate
CPT/HCPCS: 36415; 84153; 84403; 85027

== ENCOUNTER 2023-04-20 08:37 | Emergency (ER) | payer MEDICARE, MEDICAID, SELFPAY ==
[2023-04-20 08:44] VITALS: BP 117/79; BP 158/90; PULSE 92; PULSE 97; RESP 18; TEMP 36.8; O2SAT 96; O2SAT 98; BMI 36.5
--- NOTE | 2023-04-20 08:50 | ED_ITS ---
HPI - Psych General Chief Complaint: Psychiatric Symptoms Stated Complaint: Behavioral, doesn't feel himself per EMS Time Seen by Provider: 04/20/23 08:48 Source: patient Mode of arrival: EMS Limitations: no limitations History of Present Illness HPI Narrative: THIS IS AN 58 YEARS OLD MAN WITH HISTORY OF BIPOLAR DISORDER WE LIVES IN A NURSING HOME PRESENTED TO THE EMERGENCY DEPARTMENT COMPLAINING OF DEPRESSION. HE STATES THAT SOMETIMES FEEL SI . HE DENIES ANY SYSTEMIC SYMPTOMS SUCH FEVER NAUSEA VOMITING. MD complaint: feels depressed Onset (ago): day(s) (2) Duration: constant History of same: Yes Relieving factors: none Exacerbating factors: none Associated symptoms: denies other symptoms Related Data Home Medications Medication Instructions Recorded Confirmed clozapine 100 mg tablet 275 mg PO BEDTIME 05/14/22 03/07/23 lorazepam 1 mg tablet 1 tab PO BID@0900,1400 05/14/22 03/07/23 lurasidone 40 mg tablet (Latuda) 60 mg PO QAM 07/04/22 03/07/23 docusate sodium 100 mg capsule 1 cap PO BID 08/18/22 03/07/23 metformin 500 mg tablet,extended 1 tab PO 1600 08/18/22 08/18/22 release 24 hr albuterol sulfate 90 mcg/actuation inhalation 10/23/22 03/07/23 aerosol inhaler amlodipine 2.5 mg tablet 2.5 mg PO DAILY 10/23/22 03/07/23 Previous Rx's Medication Instructions Recorded blood sugar diagnostic (FreeStyle #100 ea 08/15/22 Lite Strips) blood-glucose meter (FreeStyle #1 ea 08/15/22 Lite Meter kit) lancets 28 gauge (FreeStyle #100 ea 08/15/22 Lancets) blood sugar diagnostic (Prodigy No #100 ea 08/18/22 Coding strips) blood-glucose meter (Prodigy #1 ea 08/18/22 Autocode Blood Glucose Monitoring System) lancets 28 gauge (Prodigy Lancets) #100 ea 08/18/22 trazodone 50 mg tablet 50 mg PO BEDTIME PRN insomnia 30 10/25/22 days #30 tabs alfuzosin 10 mg tablet,extended 10 mg PO BEDTIME 90 days #90 tabs 01/03/23 release 24 hr testosterone 4 pump topical QAM 28 days #150 01/03/23 grams testosterone 1 % (50 mg/5 gram) 1 packet transdermal DAILY 01/03/23 transdermal gel packet hypogonadism 30 days #150 grams atorvastatin 20 mg tablet 20 mg PO BEDTIME #90 tabs 01/16/23 Tradjenta 5 mg tablet (linagliptin) 5 mg PO QAM 90 days #90 tabs 01/23/23 senna leaf extract 176 mg/5 mL 15 ml PO BEDTIME PRN constipation 01/23/23 oral syrup (senna) #237 mL cholecalciferol (vitamin D3) 25 25 mcg PO DAILY #90 tabs 02/23/23 mcg (1,000 unit) tablet hydrochlorothiazide 12.5 mg capsule 12.5 mg PO DAILY 90 days #90 caps 02/23/23 metoprolol succinate 50 mg 50 mg PO BID #60 tabs 02/23/23 tablet,extended release 24 hr losartan 25 mg tablet 25 mg PO DAILY 30 days #30 tabs 03/03/23 aspirin 81 mg chewable tablet 1 tab PO DAILY 90 days #90 tabs 03/14/23 Allergies Allergy/AdvReac Type Severity Reaction Status Date / Time lithium [[place]] Allergy Severe TOXICITY Verified 03/07/23 09:22 thiothixene Allergy Severe SWELLING Verified 03/07/23 09:22 barium sulfate Allergy Intermediate NAUSEA & Verified 03/07/23 09:22 [BARIUM SULFATE] VOMITING haloperidol Allergy Intermediate MUSCLE Verified 03/07/23 09:22 TENSION IN LEGS benztropine Allergy Unknown benztropine Verified 03/07/23 09:22 mesylate- unknown diphenhydramine Allergy Unknown urinary Verified 03/07/23 09:22 [From Benadryl] retention fluphenazine Allergy Unknown UNKNOWN Verified 03/07/23 09:22 gabapentin [From NEURONTIN] Allergy Unknown UNKNOWN Verified 03/07/23 09:22 prolixen Allergy Unknown Unknown Uncoded 03/07/23 09:22 Review of Systems Constitutional: Constitutional: Reports no additional constitutional complaints ENT: Reports system reviewed and no additional complaints, except as documented Cardiovascular: Cardiovascular: Reports no additional cardiovascular complaints Neurologic: Reports Abnormal speech present Psychiatric: Psychiatric: Reports anxiety and Reports depression [facility] Past Medical History Medical History Aggression BPH (benign prostatic hyperplasia) Cardiac arrhythmia CHF (congestive heart failure) Constipation COPD (chronic obstructive pulmonary disease) Coronary artery disease Diabetes mellitus Essential hypertension HOCM (hypertrophic obstructive cardiomyopathy) Hypertension Myocardial infarction Nocturnal hypoxemia Obesity (BMI 30-39.9) JUDY (obstructive sleep apnea) Prolonged QT interval Pure hypercholesterolemia Schizoaffective disorder Smoker Thought disorder Surgical History History of intestinal surgery History of transurethral resection of prostate Family History Family History Father Medical history unknown Mother Medical history unknown Sister Alive and well Social History Social History Household Members: Other Household Members Other:: penitentiary Housing: Other Housing Other:: penitentiary Do you presently have visiting nurse or other home services: Yes Alcohol intake: current Alcohol intake frequency: holidays/special occasions only Patient Tobacco Use Status: Former Tobacco user Smoked in Last 30 Days: No Second Hand Smoke Exposure: No Use of substances other than those prescribed or required for medical reasons: No Substance Use Type: Unknown Advance Directives: No Advance Directives Information Provided: No service: No Current occupational status: disabled Sexual orientation: Did not discuss. Cognitive needs: Yes Hearing needs: No Vision needs: Yes Physical Exam Vital Signs: Vital Signs: Last Vital Signs Temp 98.2 F 04/20/23 08:44 Pulse 92 04/20/23 08:44 Resp 18 04/20/23 08:44 BP 117/79 04/20/23 08:44 Pulse Ox 96 04/20/23 08:44 O2 Del Method Room Air 04/20/23 08:44 BMI result Body Mass Index 36.5 Const: General: cooperative, comfortable, no acute distress and well developed Nutritional Appearance: well nourished Orientation/consciousness: patient oriented x3 Limitations: no limitations HEENT: Head: Yes normal to inspection Ears: hearing grossly normal bilaterally General nose exam: Normal external nose present Face and sinus: Yes normal facial exam Mouth: Normal oral and palatal mucosa present Neck: Neck: Yes normal visual inspection Resp: Effort & Inspection: normal respiratory effort Auscultation: clear to auscultation bilaterally Cardio: Jugular venous distension: no JVD Rhythm: regular rhythm GI: Inspection: Yes normal to inspection Palpation (GI): Soft to palpation, not firm, nontender and no guarding Auscultation: normal bowel sounds Skin: General skin exam: no rashes or lesions noted, elasticity normal and turgor normal Lesions: no lesions Rashes: no rashes Trauma: no lacerations or abrasions Neuro: General: patient oriented x3 Cranial nerves: Yes CN's II-XII intact bilaterally Speech: Abnormal speech present Coordination: [id number] test normal Extrem: General: Yes normal to inspection and Yes full ROM Right upper extremity: normal to inspection Right lower extremity: normal to inspection Medical Decision Making Medical Decision Making [facility] Narrative: PATIENT PRESENTED WITH BIPOLAR DISORDER DEPRESSION WE WILL GET CRISIS EVALUATION 16:25 the patient was evaluated by crisis his respite level of care Differential Diagnosis Differential Diagnoses: The differential diagnosis associated with the presentation includes SI/DEPRESSION/ANXIETY Lab Data [facility] Lab Attestation statement: I reviewed the patient's lab results. 04/20/23 12:36 04/20/23 12:08 Labs: Lab Results 04/20/23 04/20/23 04/20/23 Range/Units 12:04 12:04 12:08 WBC (4.8-10.8) X10*3/uL RBC (4.60-5.80) X10*6/uL Hgb (14.0-18.0) g/dl Hct (42.0-52.0) % MCV (80.0-98.0) fL MCH (27.0-33.0) pg MCHC (31.0-36.0) g/dl RDW (11.0-16.0) % Plt Count (160-400) X10*3/uL MPV (9.4-12.4) fL Absolute Nucleated RBC (0.0-0.012) X10*3/uL Nucleated RBC % (auto) (0.0-0.2) /100WBC Sodium 143 (135-145) mmol/L Potassium 4.0 (3.3-5.1) mmol/L Chloride 111 H (96-108) mmol/L Carbon Dioxide 24 (22-29) mmol/L Anion Gap 12 (12-20) BUN 20 H (9-16) mg/dL Creatinine 1.03 (0.5-1.4) mg/dL Estim Creat Clear Calc 92.3 Estimated GFR > 60 Random Glucose 111 (60-115) mg/dL Calcium 10.5 H D (8.4-10.2) mg/dL Urine Color Yellow Urine Appearance Clear Urine pH 6.0 (5.0-9.0) Ur Specific [place] 1.015 (1.005-1.025) Urine Protein Negative (Neg-Trace) mg/dL Urine Glucose (UA) Negative (Negative) mg/dL Urine Ketones Negative (Negative) mg/dL Urine Blood Negative (Negative) Urine Nitrite Negative (Negative) Ur Leukocyte Esterase Negative (Negative) Urine Opiates Screen Not Detected (Not Detect) Urine Fentanyl Screen Not Detected (Not Detect) Ur Barbiturates Screen Not Detected (Not Detect) Ur Phencyclidine Scrn Not Detected (Not Detect) Ur Amphetamines Screen Not Detected (Not Detect) U Benzodiazepines Scrn Not Detected (Not Detect) [place] (0.60-1.20) mmol/L Urine Cocaine Screen Not Detected (Not Detect) U Marijuana (THC) Screen Not Detected (Not Detect) Ethyl Alcohol < 10 mg/dL 04/20/23 04/20/23 Range/Units 12:08 12:36 WBC 7.0 (4.8-10.8) X10*3/uL RBC 4.85 (4.60-5.80) X10*6/uL Hgb 12.9 L (14.0-18.0) g/dl Hct 40.6 L (42.0-52.0) % MCV 83.7 (80.0-98.0) fL MCH 26.6 L (27.0-33.0) pg MCHC 31.8 (31.0-36.0) g/dl RDW 15.5 (11.0-16.0) % Plt Count 173 (160-400) X10*3/uL MPV 11.6 (9.4-12.4) fL Absolute Nucleated RBC 0.000 (0.0-0.012) X10*3/uL Nucleated RBC % (auto) 0.0 (0.0-0.2) /100WBC Sodium (135-145) mmol/L Potassium (3.3-5.1) mmol/L Chloride (96-108) mmol/L Carbon Dioxide (22-29) mmol/L Anion Gap (12-20) BUN (9-16) mg/dL Creatinine (0.5-1.4) mg/dL Estim Creat Clear Calc Estimated GFR Random Glucose (60-115) mg/dL Calcium (8.4-10.2) mg/dL Urine Color Urine Appearance Urine pH (5.0-9.0) Ur Specific [place] (1.005-1.025) Urine Protein (Neg-Trace) mg/dL Urine Glucose (UA) (Negative) mg/dL Urine Ketones (Negative) mg/dL Urine Blood (Negative) Urine Nitrite (Negative) Ur Leukocyte Esterase (Negative) Urine Opiates Screen (Not Detect) Urine Fentanyl Screen (Not Detect) Ur Barbiturates Screen (Not Detect) Ur Phencyclidine Scrn (Not Detect) Ur Amphetamines Screen (Not Detect) U Benzodiazepines Scrn (Not Detect) [place] < 0.10 L (0.60-1.20) mmol/L Urine Cocaine Screen (Not Detect) U Marijuana (THC) Screen (Not Detect) Ethyl Alcohol mg/dL Discharge Plan Discharge Clinical Impression: Bipolar 1 disorder Prescriptions: No Action (DME) blood-glucose meter [FreeStyle Lite Meter] Kit See Rx Instructions .ROUTE .MEDSUPPLY Qty: 1 0RF Rx Instructions: As directed (DME) lancets [FreeStyle Lancets] 28 gauge misc See Rx Instructions .ROUTE .MEDSUPPLY Qty: 100 12RF Rx Instructions: As directed once a day (DME) FreeStyle Lite Strips Strip See Rx Instructions .ROUTE .MEDSUPPLY Qty: 100 12RF Rx Instructions: As directed once a day (DME) Prodigy No Coding Strip See Rx Instructions .Route Qty: 100 12RF Rx Instructions: As directed once a day (DME) blood-glucose meter [Prodigy Autocode Monitor Syst] Misc See Rx Instructions .Route Qty: 1 0RF Rx Instructions: As directed (DME) lancets [Prodigy Lancets] 28 gauge misc See Rx Instructions .Route Qty: 100 12RF Rx Instructions: As directed once a day trazodone 50 mg tablet 50 mg PO BEDTIME PRN (Reason: insomnia) 30 Days Qty: 30 1RF alfuzosin 10 mg tablet extended release 24 hr 10 mg PO BEDTIME 90 Days Qty: 90 1RF Rx Instructions: Take before bedtime testosterone 1 % (50 mg/5 gram) gel in packet 1 packet transdermal DAILY 30 Days Qty: 150 5RF Rx Instructions: apply 1 packet daily atorvastatin 20 mg tablet 20 mg PO BEDTIME Qty: 90 3RF Tradjenta 5 mg tablet 5 mg PO QAM 90 Days Qty: 90 1RF senna leaf extract [senna] 176 mg/5 mL syrup 15 ml PO BEDTIME PRN (Reason: constipation) Qty: 237 11RF hydrochlorothiazide 12.5 mg capsule 12.5 mg PO DAILY 90 Days Qty: 90 1RF metoprolol succinate 50 mg tablet extended release 24 hr 50 mg PO BID Qty: 60 0RF cholecalciferol (vitamin D3) 25 mcg (1,000 unit) tablet 25 mcg PO DAILY Qty: 90 0RF losartan 25 mg tablet 25 mg PO DAILY 30 Days Qty: 30 2RF aspirin 81 mg tablet,chewable 1 tab PO DAILY 90 Days Qty: 90 1RF docusate sodium 100 mg capsule 1 cap PO BID metformin 500 mg tablet extended release 24 hr 1 tab PO 1600 clozapine 100 mg tablet 275 mg PO BEDTIME lorazepam 1 mg tablet 1 tab PO BID@0900,1400 Latuda 40 mg tablet 60 mg PO QAM amlodipine 2.5 mg tablet 2.5 mg PO DAILY albuterol sulfate 90 mcg/actuation HFA aerosol inhaler inhalation testosterone 20.25 mg/1.25 gram (1.62 %) gel in metered-dose pump 4 pump topical QAM 28 Days Qty: 150 5RF Interventions: [place]-Suicide Risk Severity Scale Last Done: 04/20/23 08:48
[2023-04-20 12:18] LABS: Appearance Urine Clear; Color Urine Yellow; Glucose Urine UA Negative (Negative); Leukocyte Esterase Urine Negative (Negative); Nitrite Urine Negative (Negative); Specific Gravity - Urine 1.015 (1.005-1.025); Urine Blood Negative (Negative); Urine Ketones Negative (Negative); Urine Protein Negative (Neg-Trace)
[2023-04-20 12:34] LABS: Amphetamine Screen Urine Not Detected (Not Detect); Barbiturates, Urine Not Detected (Not Detect); Benzodiazepines Screen Urine Not Detected (Not Detect); Cannabinoid Screen Urine Not Detected (Not Detect); Cocaine Screen Urine Not Detected (Not Detect); Fentanyl, urine Not Detected (Not Detect); Opiate Screen Urine Not Detected (Not Detect); Phencyclidine Screen Urine Not Detected (Not Detect)
[2023-04-20 12:42] LABS: Hematocrit 40.6 % (42.0-52.0); Hemoglobin 12.9 g/dl (14.0-18.0); Mean Corpuscular HGB Conc 31.8 g/dl (31.0-36.0); Mean Corpuscular Hemoglobin 26.6 pg (27.0-33.0); Mean Corpuscular Volume 83.7 fL (80.0-98.0); Mean Platelet Volume 11.6 fL (9.4-12.4); Platelet Count 173 X10*3/uL (160-400); Red Blood Count 4.85 X10*6/uL (4.60-5.80); Red Cell Distribution Width 15.5 % (11.0-16.0)
[2023-04-20 12:42] LABS: Anion Gap 12 (12-20); Blood Urea Nitrogen 20 mg/dL (9-16); Calcium 10.5 mg/dL (8.4-10.2); Carbon Dioxide 24 mmol/L (22-29); Chloride 111 mmol/L (96-108); Creatinine Clr Calc Pharmacy 92.3; Estimated Glomerular Filt Rate > 60; Glucose Random 111 mg/dL (60-115); Lithium < 0.10 mmol/L (0.60-1.20); Sodium 143 mmol/L (135-145)
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
[2023-04-20 15:55] LABS: Ethanol < 10 mg/dL
[2023-04-20] MEDS: cloZAPine 25 MG TABLET 75 MG PO (22:28)
[2023-04-20] MEDS: cloZAPine 100 MG TABLET 200 MG PO (22:29)
[2023-04-20] MEDS: Docusate Sodium 100 MG CAPSULE PO (22:34)
[2023-04-20] MEDS: LORazepam 0.5 MG TABLET PO (22:35)
[2023-04-20] MEDS: Metoprolol Succinate ER 50 MG TAB.ER.24H PO (22:35)
[2023-04-20 22:38] VITALS: BP 152/89; PULSE 89; RESP 17; TEMP 36.5; O2SAT 98
[2023-04-20] MEDS: traZODone HCL 50 MG TABLET PO (22:38)
[2023-04-20 22:50] LABS: MANUAL DIFF FLAG NO
[2023-04-20 22:54] LABS: Basophils Absolute Auto 0.1 X10*3/uL (0.0-0.2); Basophils Percent Auto 0.7 % (0-2); Eosinophils Absolute Auto 0.1 X10*3/uL (0.0-0.4); Eosinophils Percent Auto 0.9 % (0-4); Imm Gran Abs Auto 0.02 X10*3/uL (0.00-0.03); Imm Gran Pct Auto 0.3 % (0.0-0.4); Lymphocytes Absolute Auto 1.3 X10*3/uL (1.2-4.9); Monocytes Absolute Auto 0.6 X10*3/uL (0.1-1.2); Monocytes Percent Auto 8.9 % (2-11); Neutrophils Absolute Auto 4.9 x10*3/uL (2.0-8.3); Neutrophils Percent Auto 70.2 % (45-73)
--- NOTE | 2023-04-21 06:10 | PC.NURSE ---
Patient slept through the night, no distress observed/reported, behavior non concerning, medication compliant, disposition per care team is Respite bed search, VSS, labs completed/resulted, will continue to monitor.
[2023-04-21 06:28] VITALS: BP 140/85; PULSE 93; RESP 18; TEMP 36.7; O2SAT 96
--- NOTE | 2023-04-21 07:19 | PC.NURSE ---
Resumed care of patient, who is currently eating breakfast. He is a/ox4, denies needing anything at this moment, pt requested to go back to sleep for a little while before taking his morning medications. Pt behavior has been well overnight per night RN.
[2023-04-21] MEDS: Metoprolol Succinate ER 50 MG TAB.ER.24H PO (08:59)
[2023-04-21] MEDS: hydroCHLOROthiazide 12.5 MG TABLET PO (08:59)
[2023-04-21] MEDS: LORazepam 1 MG TABLET PO (08:59)
[2023-04-21] MEDS: Aspirin 81 MG TAB.CHEW PO (08:59)
[2023-04-21] MEDS: Tamsulosin HCL 0.4 MG CAPSULE PO (08:59)
[2023-04-21] MEDS: Losartan Potassium 25 MG TABLET PO (08:59)
[2023-04-21] MEDS: Atorvastatin Calcium 20 MG TABLET PO (08:59)
[2023-04-21] MEDS: Cholecalciferol (Vitamin D3) 25 MCG TABLET PO (08:59)
[2023-04-21] MEDS: metFORMIN HCl ER 500 MG TAB.ER.24H PO (08:59)
[2023-04-21] MEDS: Docusate Sodium 100 MG CAPSULE PO (08:59)
[2023-04-21] MEDS: Lurasidone HCl 20 MG TABLET 60 MG PO (09:34)
== END 2023-04-21 12:52 | disposition home or self-care (01) ==
PROVIDERS: Emergency Provider Emergency Medicine
DX: F31.9 Bipolar disorder, unspecified (principal); Z87.891 Personal history of nicotine dependence; Z79.899 Other long term (current) 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
CPT/HCPCS: 36415; 80048; 80178; 80307; 81003; 85025; 85027; 99284

== ENCOUNTER 2023-06-08 10:27 | Outpatient (AMB) | payer OTHER, MEDICAID, SELFPAY ==
[2023-06-08 11:32] VITALS: BP 138/76; PULSE 76; TEMP 36.3; O2SAT 98; BMI 36.5
--- NOTE | 2023-06-08 11:32 | AM.OFFWIN_ITS ---
Intake Vital Signs 06/08/23 11:32 Height 5 ft 8 in Weight 240 lb BMI 36.5 BP 138/76 Blood Pressure Location Lt brachial Position Sitting Pulse 76 Pulse Source Pulse Oximeter Temp 97.3 F Temp Source Temporal Artery Scan Pulse Oximetry (%) 98 Intake Visit Reasons: EP LT ankle Swelling/red/pain Intake Note: pt is here for c/o left ankle swelling and pain Patient Tobacco Use Status: Former Tobacco user Allergies lithium [[place]] Allergy (Severe, Verified 06/08/23 12:17) TOXICITY thiothixene Allergy (Severe, Verified 06/08/23 12:17) SWELLING barium sulfate [BARIUM SULFATE] Allergy (Intermediate, Verified 06/08/23 12:17) NAUSEA & VOMITING haloperidol Allergy (Intermediate, Verified 06/08/23 12:17) MUSCLE TENSION IN LEGS benztropine Allergy (Unknown, Verified 06/08/23 12:17) benztropine mesylate- unknown diphenhydramine [From Benadryl] Allergy (Unknown, Verified 06/08/23 12:17) urinary retention fluphenazine Allergy (Unknown, Verified 06/08/23 12:17) UNKNOWN gabapentin [From NEURONTIN] Allergy (Unknown, Verified 06/08/23 12:17) UNKNOWN prolixen Allergy (Unknown, Uncoded 06/08/23 12:17) Unknown Medication List - Last Reconciled 06/08/23 by Robert Noel MD acetaminophen 500 mg PO Q6H PRN albuterol sulfate 90 mcg/actuation (ProAir HFA) 2 puffs inhalation Q4-6H PRN alfuzosin ER 10 mg PO BEDTIME 90 days alum-mag hydroxide-simeth 200-200-20 mg/5 mL 10 mL PO TID PRN aspirin 1 tab PO DAILY 90 days atorvastatin 20 mg PO DAILY cholecalciferol (vitamin D3) 25 mcg PO DAILY clozapine 75 mg PO BEDTIME clozapine 200 mg PO BEDTIME docusate sodium 1 cap PO BID hydrochlorothiazide 12.5 mg PO DAILY linagliptin (Tradjenta) 5 mg PO DAILY lorazepam 0.5 mg PO BEDTIME lorazepam 1 mg PO BID@0800,1600 losartan 25 mg PO DAILY lurasidone 60 mg PO DAILY metformin ER 500 mg PO DAILY metoprolol succinate ER 50 mg PO BID polyethylene glycol 3350 (Miralax) 17 grams PO DAILY PRN senna leaf extract (senna) 15 mL PO BEDTIME PRN testosterone (AndroGel) 2 packets transdermal DAILY trazodone 50 mg PO BEDTIME Do you need a note to return to daycare/school/sports/work: No HPI EP LT ankle Swelling/red/pain HPI Details Patient has pain and swelling in the right ankle and not the left. Patient is reporting pain in the right foot and ankle for the past 3 days. There is swelling in the foot. No fall or injury. [facility] Medical History Aggression BPH (benign prostatic hyperplasia) Cardiac arrhythmia CHF (congestive heart failure) Constipation COPD (chronic obstructive pulmonary disease) Coronary artery disease Diabetes mellitus Essential hypertension HOCM (hypertrophic obstructive cardiomyopathy) Hypertension Myocardial infarction Nocturnal hypoxemia Obesity (BMI 30-39.9) JUDY (obstructive sleep apnea) Prolonged QT interval Pure hypercholesterolemia Schizoaffective disorder Smoker Thought disorder Surgical History History of intestinal surgery History of transurethral resection of prostate Family History Father Medical history unknown Mother Medical history unknown Sister Alive and well Social History Household Members: Other Household Members Other:: nursing home Housing: Other Housing Other:: nursing home Do you presently have visiting nurse or other home services: Yes Alcohol intake: current Alcohol intake frequency: holidays/special occasions only Patient Tobacco Use Status: Former Tobacco user Second Hand Smoke Exposure: No Substance Use Type: Unknown service: No Current occupational status: disabled Sexual orientation: Did not discuss. Cognitive needs: Yes Hearing needs: No Vision needs: Yes Physical Exam Vital Signs: Last Vital Signs Temp 97.3 F 06/08/23 11:32 Pulse 76 06/08/23 11:32 BP 138/76 06/08/23 11:32 Pulse Ox 98 06/08/23 11:32 BMI result Body Mass Index 36.5 Skin Other: Right foot: Ankle: Pitting edema over the ankle. Minimal tenderness to touch. There is a healing wound on the ankle. Assessment & Plan Assessment & Plan (1) Callus of foot: Code(s): L84 - Corns and callosities Plan: Anti-inflammatory and antibiotic called in. If symptoms do not improve to follow-up here. Coding Level of Care Code Est Pt Level 3 (55758) Diagnoses Callus of foot L84
== END 2023-06-08 12:37 | disposition home or self-care (01) ==
PROVIDERS: Visit Provider Internal Medicine
DX: L84 Corns and callosities (principal)
CPT/HCPCS: 99213

== ENCOUNTER 2023-06-14 10:49 | Emergency (ER) | payer OTHER, MEDICAID, SELFPAY ==
--- NOTE | ~2023-06-14 | XR_ITS ---
EXAMINATION: XR ANKLE, RIGHT CLINICAL INFORMATION: Right ankle swelling, wound COMPARISON: 07/21/2021 TECHNIQUE: AP, lateral, and mortise views of the right ankle. FINDINGS: There is an anchor in the distal right tibia, unchanged. Medial soft tissue swelling is present. Ossification of the distal tibiofibular syndesmosis is again evident likely related to prior trauma. No acute fracture or subluxation is evident. The talar dome and ankle mortise are intact. There are prominent plantar and dorsal calcaneal spurs. XR/XR ankle RT min 3V IMPRESSION: 1. Evidence of prior surgery and medial soft tissue swelling, but no acute fracture or subluxation of the right ankle.
--- NOTE | ~2023-06-14 | US_ITS ---
EXAMINATION: US VENOUS ULTRASOUND WITH DOPPLER LOWER EXTREMITY, RIGHT CLINICAL INFORMATION: Right leg swelling. COMPARISON: None available. TECHNIQUE: Ultrasound of the deep veins is performed from the hip to the calf with compression sonography and color and pulse Doppler assessment. Spectral analysis with color-flow imaging is performed. FINDINGS: There is normal venous compression and respiratory variation and augmented flow. The visualized common femoral vein, superficial femoral vein, profunda femoral vein, popliteal vein, and the trifurcation region shows no evidence of deep venous thrombosis. There is no significant popliteal fossa cyst. No [place]'s cyst. Skin defect at the level the ankle with an underlying 1.0 cm possible phlegmon versus abscess. If the patient's symptoms persist, followup ultrasound in 5 days 7 days might be of value to exclude proximal propagation from a non-visualized calf vein. US/US venous duplex LE RT IMPRESSION: No DVT demonstrated in the right lower extremity. Skin defect at the level of the ankle with underlying 1.0 cm phlegmon versus early abscess.
[2023-06-14 11:22] VITALS: BP 131/78; PULSE 86; RESP 18; TEMP 36.9; O2SAT 96; BMI 36.5
--- NOTE | 2023-06-14 11:28 | ED_ITS ---
HPI - Wound/Laceration General Chief Complaint: Extremity Injury, Lower Stated Complaint: r leg ankle swelling pain Time Seen by Provider: 06/14/23 14:19 Source: patient and old records reviewed Mode of arrival: ambulatory Limitations: no limitations History of Present Illness HPI narrative: 58 yo male hx of schizoaffective disorder, JUDY, arthritis, obesity, HOCM, HTN, HLD, BPH, prolonged qtc R ankle surgery in past here with ankle red bump and yellow drainage from R ankle for 3 weeks he denies trauma. Blames it on prior surgery. He states he has not had it drain like this before. He went to urgent care and they gave him muscle relaxer. He has no fevers, n/v or chills. Onset (ago): week(s) Extremity Location: right: ankle Place: home Patient tetanus UTD: Yes Context: other (unknown) Associated symptoms: other (yellow drainage) Treatments prior to arrival: bandage and other ( massages the area) Related Data Home Medications Medication Instructions Recorded Confirmed docusate sodium 100 mg capsule 1 cap PO BID 08/18/22 04/20/23 acetaminophen 500 mg tablet 500 mg PO Q6H PRN Pain 04/20/23 04/20/23 albuterol sulfate 90 mcg/actuation 2 puff inhalation Q4-6H PRN 04/20/23 04/20/23 aerosol inhaler (ProAir HFA) SHORTNESS OF BREATH/WHEEZING aluminum-mag hydroxide-simethicone 10 ml PO TID PRN Indigestion 04/20/23 04/20/23 200 mg-200 mg-20 mg/5 mL oral susp atorvastatin 20 mg tablet 20 mg PO DAILY 04/20/23 04/20/23 clozapine 100 mg tablet 200 mg PO BEDTIME 04/20/23 04/20/23 clozapine 25 mg tablet 75 mg PO BEDTIME 04/20/23 04/20/23 hydrochlorothiazide 12.5 mg capsule 12.5 mg PO DAILY 04/20/23 04/20/23 linagliptin 5 mg tablet (Tradjenta) 5 mg PO DAILY 04/20/23 04/20/23 lorazepam 0.5 mg tablet 0.5 mg PO BEDTIME 04/20/23 04/20/23 lorazepam 1 mg tablet 1 mg PO BID@0800,1600 04/20/23 04/20/23 losartan 25 mg tablet 25 mg PO DAILY 04/20/23 04/20/23 lurasidone 60 mg tablet 60 mg PO DAILY 04/20/23 04/20/23 metformin 500 mg tablet,extended 500 mg PO DAILY 04/20/23 04/20/23 release 24 hr metoprolol succinate 50 mg 50 mg PO BID 04/20/23 04/20/23 tablet,extended release 24 hr polyethylene glycol 3350 17 17 g PO DAILY PRN Constipation 04/20/23 04/20/23 gram/dose oral powder (Miralax) testosterone 1.62 % (20.25 mg/1.25 2 packet transdermal DAILY 04/20/23 04/20/23 gram) transdermal gel packet (AndroGel) trazodone 50 mg tablet 50 mg PO BEDTIME 04/20/23 04/20/23 Previous Rx's Medication Instructions Recorded alfuzosin 10 mg tablet,extended 10 mg PO BEDTIME 90 days #90 tabs 01/03/23 release 24 hr senna leaf extract 176 mg/5 mL 15 ml PO BEDTIME PRN constipation 01/23/23 oral syrup (senna) #237 mL cholecalciferol (vitamin D3) 25 25 mcg PO DAILY #90 tabs 02/23/23 mcg (1,000 unit) tablet aspirin 81 mg chewable tablet 1 tab PO DAILY 90 days #90 tabs 03/14/23 cephalexin 500 mg capsule 500 mg PO BID #20 caps 06/08/23 meloxicam 15 mg tablet 15 mg PO DAILY #14 tabs 06/08/23 cephalexin 500 mg capsule 500 mg PO QID 7 days #28 caps 06/14/23 doxycycline hyclate 100 mg capsule 100 mg PO BID 7 days #14 caps 06/14/23 Allergies Allergy/AdvReac Type Severity Reaction Status Date / Time lithium [[place]] Allergy Severe TOXICITY Verified 06/08/23 12:17 thiothixene Allergy Severe SWELLING Verified 06/08/23 12:17 barium sulfate Allergy Intermediate NAUSEA & Verified 06/08/23 12:17 [BARIUM SULFATE] VOMITING haloperidol Allergy Intermediate MUSCLE Verified 06/08/23 12:17 TENSION IN LEGS benztropine Allergy Unknown benztropine Verified 06/08/23 12:17 mesylate- unknown diphenhydramine Allergy Unknown urinary Verified 06/08/23 12:17 [From Benadryl] retention fluphenazine Allergy Unknown UNKNOWN Verified 06/08/23 12:17 gabapentin [From NEURONTIN] Allergy Unknown UNKNOWN Verified 06/08/23 12:17 prolixen Allergy Unknown Unknown Uncoded 06/08/23 12:17 Review of Systems 2 Review of Systems: Constitutional : No Fever, No Chills ENT/Mouth : No sore throat, No Rhinorrhea Eyes: No Eye Pain, No Swelling, No Redness Cardiovascular : No Chest Pain, No SOB Respiratory : No Cough, No Sputum Gastrointestinal : No Nausea, No Vomiting, No Diarrhea, No abdominal Pain Genitourinary : No Dysuria, No Hematuria Musculoskeletal : No joint pain, No Myalgias, No Joint Swelling Skin : No Skin Lesions, positive skin rash Neuro : No Weakness, No Numbness, No Headache Psych : No Anxiety, No Depression All other systems reviewed and are negative [facility] Past Medical History Attestation statement: The following information was validated with the patient. Source: old records reviewed Medical History Thought disorder Nocturnal hypoxemia Constipation COPD (chronic obstructive pulmonary disease) JUDY (obstructive sleep apnea) Smoker BPH (benign prostatic hyperplasia) Diabetes mellitus Obesity (BMI 30-39.9) Pure hypercholesterolemia Prolonged QT interval Essential hypertension HOCM (hypertrophic obstructive cardiomyopathy) Aggression Hypertension Coronary artery disease CHF (congestive heart failure) Cardiac arrhythmia Myocardial infarction Schizoaffective disorder Surgical History History of intestinal surgery History of transurethral resection of prostate Family History Family History Father Medical history unknown Mother Medical history unknown Sister Alive and well Social History Social History Household Members: Other Household Members Other:: skilled nursing Housing: Other Housing Other:: skilled nursing Do you presently have visiting nurse or other home services: Yes Alcohol intake: current Alcohol intake frequency: holidays/special occasions only Patient Tobacco Use Status: Former Tobacco user Second Hand Smoke Exposure: No Substance Use Type: Unknown Advance Directives: No service: No Current occupational status: disabled Sexual orientation: Did not discuss. Cognitive needs: Yes Hearing needs: No Vision needs: Yes Physical Exam 2 Vital Signs: Vital Signs: Last Vital Signs Temp 98.5 F 06/14/23 11:22 Pulse 86 06/14/23 11:22 Resp 18 06/14/23 11:22 BP 131/78 06/14/23 11:22 Pulse Ox 96 06/14/23 11:22 O2 Del Method Room Air 06/14/23 11:22 BMI result Body Mass Index 36.5 Appearance: Alert. Oriented X3. No acute distress. Eyes: Pupils equal, round and reactive to light. ENT: Pharynx normal. Neck: Normal inspection. Neck supple. CVS: Normal heart rate and rhythm. Pulses normal. Respiratory: No respiratory distress. Breath sounds normal. Abdomen: Soft and nontender. Skin: Skin warm and dry. Normal skin color. Normal skin turgor. Extremities: R medial malleolus draining 1cm wound I expressed 2mL of white yellow discharge the entire lesion is 2cm on malleolus no joint effusion distal pulse intact normal ROM no signs of septic joint no swelling noted to the ankle joint, bilateral 1+ pitting edema. Neuro: Oriented X 3. No motor deficit. No sensory deficit. Course Course Course Narrative: REMY 11:30AM - 58yoM with Sig PMHx of DM is presenting to the ER with complaints of right ankle medial wound that started approximately 3 weeks ago that he has been trying to take care of at home on his own. He reports that he went to [facility] on 06/08/2023 and diagnosed with callus of foot and corns and given Tylenol. Reports that he wants Motrin. Was not given any antibiotics per patient. He denies any fevers or chills, history of MRSA that he is aware of. Reports his legs have also been swollen for quite some time. He denies any chills, fevers, chest pain, shortness of breath, cough, congestion, dyspnea on exertion orthopnea, palpitations. On exam patient has a wound to the right medial ankle with purulent drainage and soft tissue swelling. +2 pitting edema to lower extremities. Plan: Labs, ultrasound of lower extremity to evaluate for DVT versus abscess patient to be sent back to the waiting room to be evaluated in the ED by another provider H&P refer to provider in ED. Medical Decision Making Medical Decision Making MDM Narrative: 58 yo male hx of schizoaffective disorder, JUDY, arthritis, obesity, HOCM, HTN, HLD, BPH, prolonged qtc R ankle surgery in past notes open wound to R medial malleolus 3 days ago now with draining abscess no fevers, systemic symptoms normal ROM of ankle went to urgent care and started on flexeril - triage xray and DVT study stable infl markers elevated but no baseline currently at this time he is stable for wound care follow up and PO antibiotics with reasons to return. Differential Diagnosis Differential Diagnoses: The differential diagnosis associated with the presentation includes abscess, cellulitis has no joint effusion normal ROM of ankle doubt septic joint Admission/Observation Consideration of admission/observation: Escalation of care including admission/observation considered no fevers, wound is draining normal pulses no signs of septic joint no systemic symptoms can be managed as outpatient and follow up with wound care Lab Data MDM Lab Attestation statement: I reviewed the patient's lab results. 06/14/23 11:35 06/14/23 11:35 Labs: Lab Results 06/14/23 Range/Units 11:35 WBC 7.8 (4.8-10.8) X10*3/uL RBC 4.48 L (4.60-5.80) X10*6/uL Hgb 11.8 L (14.0-18.0) g/dl Hct 36.9 L (42.0-52.0) % MCV 82.4 (80.0-98.0) fL MCH 26.3 L (27.0-33.0) pg MCHC 32.0 (31.0-36.0) g/dl RDW 15.1 (11.0-16.0) % Plt Count 188 (160-400) X10*3/uL MPV 11.7 (9.4-12.4) fL Immature Gran % (Auto) 0.3 (0.0-0.4) % Neut % (Auto) 75.9 H (45-73) % Lymph % (Auto) 14.9 L (20-40) % [place] % (Auto) 7.6 (2-11) % Eos % (Auto) 0.8 (0-4) % Baso % (Auto) 0.5 (0-2) % Lymph # (Auto) 1.2 (1.2-4.9) X10*3/uL [place] # (Auto) 0.6 (0.1-1.2) X10*3/uL Eos # (Auto) 0.1 (0.0-0.4) X10*3/uL Baso # (Auto) 0.0 (0.0-0.2) X10*3/uL Abs Immat Gran (auto) 0.02 (0.00-0.03) X10*3/uL Absolute Neuts (auto) 5.9 (2.0-8.3) x10*3/uL Absolute Nucleated RBC 0.000 (0.0-0.012) X10*3/uL Nucleated RBC % (auto) 0.0 (0.0-0.2) /100WBC ESR 77 H (0-15) MM/HR PT 12.7 (11.1-13.3) SEC INR 1.0 (0.9-1.1) Sodium 141 (135-145) mmol/L Potassium 4.0 (3.3-5.1) mmol/L Chloride 107 (96-108) mmol/L Carbon Dioxide 26 (22-29) mmol/L Anion Gap 12 (12-20) BUN 20 H (9-16) mg/dL Creatinine 1.17 (0.5-1.4) mg/dL Estim Creat Clear Calc 81.3 Estimated GFR > 60 Random Glucose 148 H (60-115) mg/dL Calcium 10.0 (8.4-10.2) mg/dL Magnesium 1.9 (1.6-2.6) mg/dL Total Bilirubin 0.3 (0.0-1.0) mg/dL AST 13 (5-37) U/L ALT 16 (0-40) U/L Alkaline Phosphatase 62 (39-117) U/L C-Reactive Protein 4.71 H (< or = 0.50) mg/dL B-Natriuretic Peptide 277 H (<100) pg/mL Total Protein 7.0 (6.5-8.0) g/dL Albumin 3.9 (3.5-5.0) g/dL Independent Interpretation I performed an independent interpretation of an: Plain X-Ray (no fx no periosteal rxn) and Ultrasound (no DVT) Radiology Impression Discussion of test interpretation with radiology: I have reviewed the radiologist's reading. External Record Review External record reviewed: Inpatient record Prescription Management I considered prescription management with: Antibiotic Discharge Plan Discharge Clinical Impression: Abscess Patient Disposition: Home, Self-Care Instructions: Abscess (ED) Additional Instructions: take a probiotic while on antibiotics. monitor redness and swelling if it streaks up or swells and you cannot move your ankle, develop a fever seek care. please take all antibiotics. please call our wound care center. you should not be getting the area wet other than in a shower - avoid lakes, beaches, ponds, [place] keep clean dry and covered. change dressing daily Prescriptions: New cephalexin 500 mg capsule 500 mg PO QID 7 Days Qty: 28 0RF doxycycline hyclate 100 mg capsule 100 mg PO BID 7 Days Qty: 14 0RF No Action alfuzosin 10 mg tablet extended release 24 hr 10 mg PO BEDTIME 90 Days Qty: 90 1RF Rx Instructions: Take before bedtime senna leaf extract [senna] 176 mg/5 mL syrup 15 ml PO BEDTIME PRN (Reason: constipation) Qty: 237 11RF cholecalciferol (vitamin D3) 25 mcg (1,000 unit) tablet 25 mcg PO DAILY Qty: 90 0RF aspirin 81 mg tablet,chewable 1 tab PO DAILY 90 Days Qty: 90 1RF docusate sodium 100 mg capsule 1 cap PO BID atorvastatin 20 mg tablet 20 mg PO DAILY trazodone 50 mg tablet 50 mg PO BEDTIME clozapine 100 mg tablet 200 mg PO BEDTIME losartan 25 mg tablet 25 mg PO DAILY hydrochlorothiazide 12.5 mg capsule 12.5 mg PO DAILY clozapine 25 mg tablet 75 mg PO BEDTIME lorazepam 1 mg tablet 1 mg PO BID@0800,1600 metformin 500 mg tablet extended release 24 hr 500 mg PO DAILY lurasidone 60 mg tablet 60 mg PO DAILY Tradjenta 5 mg tablet 5 mg PO DAILY metoprolol succinate 50 mg tablet extended release 24 hr 50 mg PO BID lorazepam 0.5 mg Tablet 0.5 mg PO BEDTIME testosterone [AndroGel] 1.62 % (20.25 mg/1.25 gram) Gel In Packet 2 packet TRANSDERMAL DAILY Rx Instructions: apply 20.25 mg /1 packet to max area of EACH upper arm and shoulder polyethylene glycol 3350 [Miralax] 17 gram/dose Powder 17 g PO DAILY PRN (Reason: Constipation) alum-mag hydroxide-simeth [Mylanta] 200-200-20 mg/5 mL Suspension 10 ml PO TID PRN (Reason: Indigestion) Rx Instructions: administer between meals and at bedtime albuterol sulfate [ProAir HFA] 90 mcg/actuation Hfa Aerosol Inhaler 2 puff INHALATION Q4-6H PRN (Reason: SHORTNESS OF BREATH/WHEEZING) acetaminophen 500 mg Tablet 500 mg PO Q6H PRN (Reason: Pain) cephalexin 500 mg capsule 500 mg PO BID Qty: 20 0RF meloxicam 15 mg tablet 15 mg PO DAILY Qty: 14 0RF Referrals: Cassie Alarcon PA [[facility] [employer]] - (can see any provider please call office for appointment) Interventions: ED Discharge Assessment Last Done: 06/14/23 14:44 Discharge Date/Time: 06/14/23 14:44
[2023-06-14 11:46] LABS: MANUAL DIFF FLAG NO
[2023-06-14 11:56] LABS: Basophils Percent Auto 0.5 % (0-2); Eosinophils Absolute Auto 0.1 X10*3/uL (0.0-0.4); Eosinophils Percent Auto 0.8 % (0-4); Hematocrit 36.9 % (42.0-52.0); Hemoglobin 11.8 g/dl (14.0-18.0); Imm Gran Abs Auto 0.02 X10*3/uL (0.00-0.03); Imm Gran Pct Auto 0.3 % (0.0-0.4); Lymphocytes Absolute Auto 1.2 X10*3/uL (1.2-4.9); Lymphocytes Percent Auto 14.9 % (20-40); Mean Corpuscular Hemoglobin 26.3 pg (27.0-33.0); Mean Corpuscular Volume 82.4 fL (80.0-98.0); Mean Platelet Volume 11.7 fL (9.4-12.4); Monocytes Absolute Auto 0.6 X10*3/uL (0.1-1.2); Monocytes Percent Auto 7.6 % (2-11); Neutrophils Absolute Auto 5.9 x10*3/uL (2.0-8.3); Neutrophils Percent Auto 75.9 % (45-73); Platelet Count 188 X10*3/uL (160-400); Red Blood Count 4.48 X10*6/uL (4.60-5.80); Red Cell Distribution Width 15.1 % (11.0-16.0); White Blood Count 7.8 X10*3/uL (4.8-10.8)
[2023-06-14 12:01] LABS: Prothrombin Time 12.7 SEC (11.1-13.3)
[2023-06-14 12:05] LABS: Alanine Aminotransferase 16 U/L (0-40); Albumin Level 3.9 g/dL (3.5-5.0); Alkaline Phosphatase 62 U/L (39-117); Anion Gap 12 (12-20); Aspartate Amino Transferase 13 U/L (5-37); Bilirubin Total 0.3 mg/dL (0.0-1.0); Blood Urea Nitrogen 20 mg/dL (9-16); C Reactive Protein 4.71 mg/dL (< or = 0.50); Carbon Dioxide 26 mmol/L (22-29); Chloride 107 mmol/L (96-108); Creatinine Clr Calc Pharmacy 81.3; Estimated Glomerular Filt Rate > 60; Glucose Random 148 mg/dL (60-115); Magnesium 1.9 mg/dL (1.6-2.6); Sodium 141 mmol/L (135-145)
[2023-06-14 12:10] LABS: B Type Natriuretic Peptide 277 pg/mL (<100)
[2023-06-14 13:06] LABS: Erythrocyte Sedimentation Rate 77 MM/HR (0-15)
== END 2023-06-14 14:44 | disposition home or self-care (01) ==
PROVIDERS: Physician Assistant Medical; Emergency Provider Emergency Medicine; PCP Internal Medicine
DX: L02.415 Cutaneous abscess of right lower limb (principal); R60.0 Localized edema; M25.571 Pain in right ankle and joints of right foot; R06.02 Shortness of breath; Z87.891 Personal history of nicotine dependence; Z79.899 Other long term (current) 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
CPT/HCPCS: 10060; 36415; 73610; 80053; 83735; 83880; 85025; 85610; 85652; 86140; 93971; 99282; 99284

== ENCOUNTER 2023-07-02 08:43 | Outpatient (RCR) | payer OTHER, MEDICAID, SELFPAY ==
--- NOTE | ~2023-07-02 | XR_ITS ---
EXAMINATION: XR ANKLE, RIGHT CLINICAL INFORMATION: Assess hardware COMPARISON: 06/14/2023 TECHNIQUE: AP, lateral, and mortise views of the right ankle. FINDINGS: Similar appearance of surgical anchor in the distal tibia. Redemonstration of focal soft tissue swelling along the medial aspect of the ankle. Persistent ossification of the distal tibiofibular syndesmosis. Prominent dorsal and plantar calcaneal spurs. Degenerative changes at the midfoot with hypertrophic change. XR/XR ankle RT min 3V IMPRESSION: Stable postsurgical changes. No displaced fracture appreciated. Additional imaging with CT scan or MRI should be considered for better visualization as these modalities are much more sensitive for detection of fracture or other underlying pathology.
== END 2023-08-21 08:00 | disposition home or self-care (01) ==
LOC: HO.WCC 08:43
PROVIDERS: PCP Internal Medicine; Visit Provider Physician Assistant
DX: E11.622 Type 2 diabetes mellitus with other skin ulcer (principal); L97.312 Non-pressure chronic ulcer of right ankle with fat layer exposed; E11.40 Type 2 diabetes mellitus with diabetic neuropathy, unspecified; I10 Essential (primary) hypertension; F17.210 Nicotine dependence, cigarettes, uncomplicated
CPT/HCPCS: 11042; 73610; 99212; 99213

== ENCOUNTER 2023-07-11 10:53 | Outpatient (AMB) | payer OTHER, MEDICAID, SELFPAY ==
[2023-07-11 10:57] VITALS: BP 146/84; PULSE 92; O2SAT 96; BMI 36.3
--- NOTE | 2023-07-11 10:57 | A.OFFPC_ITS ---
Vital Signs 07/11/23 10:57 Height 5 ft 8 in Weight 239 lb BMI 36.3 BP 146/84 H Blood Pressure Location Lt brachial Position Sitting Pulse 92 Pulse Source Pulse Oximeter Pulse Oximetry (%) 96 Oxygen Delivery Method Room Air Intake Visit Reasons: F/U post [facility] ER visit, Ankle Abcess Bell Cleaner Required: No Accompanied by: Self / Same As Patient Allergies lithium [[place]] Allergy (Severe, Verified 07/11/23 12:17) TOXICITY thiothixene Allergy (Severe, Verified 07/11/23 12:17) SWELLING barium sulfate [BARIUM SULFATE] Allergy (Intermediate, Verified 07/11/23 12:17) NAUSEA & VOMITING haloperidol Allergy (Intermediate, Verified 07/11/23 12:17) MUSCLE TENSION IN LEGS benztropine Allergy (Unknown, Verified 07/11/23 12:17) benztropine mesylate- unknown diphenhydramine [From Benadryl] Allergy (Unknown, Verified 07/11/23 12:17) urinary retention fluphenazine Allergy (Unknown, Verified 07/11/23 12:17) UNKNOWN gabapentin [From NEURONTIN] Allergy (Unknown, Verified 07/11/23 12:17) UNKNOWN prolixen Allergy (Unknown, Uncoded 07/11/23 12:17) Unknown Medication List - Last Reconciled 07/11/23 by Regan Hogue MD acetaminophen 500 mg PO Q6H PRN albuterol sulfate 90 mcg/actuation (ProAir HFA) 2 puffs inhalation Q4-6H PRN alfuzosin ER 10 mg PO BEDTIME 90 days alum-mag hydroxide-simeth 200-200-20 mg/5 mL 10 mL PO TID PRN aspirin 1 tab PO DAILY 90 days atorvastatin 20 mg PO DAILY cholecalciferol (vitamin D3) 25 mcg PO DAILY clozapine 75 mg PO BEDTIME clozapine 200 mg PO BEDTIME docusate sodium 1 cap PO BID doxycycline hyclate 100 mg PO BID 7 days hydrochlorothiazide 12.5 mg PO DAILY linagliptin (Tradjenta) 5 mg PO DAILY lorazepam 0.5 mg PO BEDTIME lorazepam 1 mg PO BID@0800,1600 losartan 25 mg PO DAILY lurasidone 60 mg PO DAILY meloxicam 15 mg PO DAILY metformin ER 500 mg PO DAILY metoprolol succinate ER 50 mg PO BID polyethylene glycol 3350 (Miralax) 17 grams PO DAILY PRN senna leaf extract (senna) 15 mL PO BEDTIME PRN testosterone (AndroGel) 2 packets transdermal DAILY trazodone 50 mg PO BEDTIME Tobacco use date assessed: 07/11/23 Dental Screening Dental Screen Date: 07/11/23 Did you have a dental visit in the last 12 months?: No Did you have a dental problem in the last 6 months where you did not have access to dental care?: No Was dental information given to patient?: No HPI F/U post [facility] [place] visit, Ankle Abcess HPI Details Patient comes in today for his [facility] follow up visit He was seen in the ER a month ago for right ankle swelling and pain and examination then revealed (+) draining abscess at the time X-rays of the ankle done revealed (+) evidence of prior surgery and soft tissue swelling but no other acute abnormalities Patient relates that he had right ankle surgery for an ankle fracture at [facility] about 21 years ago (when he was 37 y/o) and about 8 years ago, a metal pin was sticking out of his ankle and the doctor who saw him then just supposedly pulled it out and did not really do anything else on his ankle - is not sure at this time which doctor that was but most likely was Dr. Arrieta as he has seen Dr. Arrieta for his ankle around that time He was sent home on oral Doxycycline and Cephalexin and was referred to the Wound clinic, who has been seeing him regularly since States that the wound on his ankle is now almost healed up; has been going to the Wound Clinic on a weekly basis States that he feels okay otherwise and does not have any other acute issues at present except that he is upset that the place where is is staying at will not let him get a wheelchair as he continues to feel that he cannot walk as much as they wanted him to and that he is incapacitated He denies any headaches or dizziness Denies any chest pains, no SOB No nausea/vomiting, no abdominal pain No change in bowel habits noted [facility] Medical History Thought disorder Nocturnal hypoxemia Constipation COPD (chronic obstructive pulmonary disease) JUDY (obstructive sleep apnea) Smoker BPH (benign prostatic hyperplasia) Diabetes mellitus Obesity (BMI 30-39.9) Pure hypercholesterolemia Prolonged QT interval Essential hypertension HOCM (hypertrophic obstructive cardiomyopathy) Aggression Hypertension Coronary artery disease CHF (congestive heart failure) Cardiac arrhythmia Myocardial infarction Schizoaffective disorder Surgical History History of ankle surgery History of intestinal surgery History of transurethral resection of prostate Family History Father Medical history unknown Mother Medical history unknown Sister Alive and well Social History Household Members: Other Household Members Other:: snf Housing: Other Housing Other:: snf Do you presently have visiting nurse or other home services: Yes Alcohol intake: current Alcohol intake frequency: holidays/special occasions only Patient Tobacco Use Status: Former Tobacco user Second Hand Smoke Exposure: No Substance Use Type: Unknown service: No Current occupational status: disabled Sexual orientation: Did not discuss. Cognitive needs: Yes Hearing needs: No Vision needs: Yes Questionnaire PHQ-9 Over the last 2 weeks, how often have you been bothered by any of the following problems? 1. Little interest or pleasure in doing things: not at all 2. Feeling down, depressed, or hopeless: not at all 3. Trouble falling or staying asleep, or sleeping too much: not at all 4. Feeling tired or having little energy: not at all 5. Poor appetite or overeating: not at all 6. Feeling bad about yourself - or that you are a failure or have let yourself or your family down: not at all 7. Trouble concentrating on things, such as reading the newspaper or watching television: not at all 8. Moving or speaking so slowly that other people could have noticed. Or the opposite - being so fidgety or restless that you have been moving around a lot more than usual: not at all 9. Thoughts that you would be better off or of hurting yourself in some way: not at all Total score: 0 Depression Screening Interpretation: Negative (is on Rx) Depression Screening Done: Yes 39158 - PHQ-9 Billing: Yes Source: Developed by Drs. Ga Richard, Rosio Grigsby, Jose Johnson and colleagues, with an educational lulu from [employer] Thrive Questionnaire Date Thrive assessed: 07/11/23 I am a: Patient What is your living situation today?: I have a steady place to live Within the past 12 months, did the food you bought not last and you didn't have the money to get more?: Never true Within the past 12 months, did you worry whether your food would run out before you got money to buy more?: Never true Do you have trouble paying for medicines?: No Do you have trouble getting transportation to medical appointments?: No Do you have trouble paying your heating and electricity bill?: No Do you have trouble taking care of your child, family member or friend?: No Do you have trouble with day-to-day activities such as bathing, preparing meals, shopping, managing finances, etc.?: No Are you currently unemployed and looking for a job?: No Are you interested in more education?: No Please select the resources that you would like help with: None Currently or been in a relationship where the following occur: no concerns reported AUDIT C Alcohol Use Questionnaire (AUDIT-C) 1. How often do you have a drink containing alcohol?: Never 3. How often do you have six or more drinks on one occasion?: Never Total Score: 0 Score Reviewed/Action Taken: Yes LINN-7 AMB Questionnaire LINN-7 Date LINN - 7 assessed: 07/11/23 Feeling nervous, anxious, or on edge: 0 = Not at all Not being able to stop or control worryin = Not at all Worrying too much about different things: 0 = Not at all Trouble relaxin = Not at all Being so restless that it is hard to sit still: 0 = Not at all Becoming easily annoyed or irritable: 0 = Not at all Feeling afraid as if something awful might happen: 0 = Not at all Total LINN-7 score (0-4 normal; 5-9 mild; 10-14 moderate; 15-21 severe): 0 Source: Developed by Drs. Ga Richard, Rosio Grigsby, Jose Johnson and colleagues, with an educational lulu from [employer]. Review of Systems Const Denies chills, Denies fatigue, Denies fever(s) and Denies headache(s) ENT Denies dysphagia, Denies dizziness, Denies otalgia, Denies headache(s), Denies neck pain, Denies odynophagia and Denies sore throat Card Denies chest pain, Denies palpitations and Reports dyspnea on exertion (mild, occasionally) Resp Denies chest congestion, Denies cough and Reports dyspnea on exertion (mild, occasionally) GI Denies abdominal pain, Reports constipation (on and off), Denies dysphagia, Denies heartburn, Denies diarrhea, Denies nausea, Denies odynophagia and Denies vomiting Denies dysuria, Denies nocturia and Denies urinary frequency Musc Reports arthralgias (involving both knees, ankles and feet) and Denies neck pain Skin/Breast Details: healing wound on the right ankle Denies rash Neuro Denies dizziness and Denies headache(s) Endo Denies fatigue and Denies palpitations Physical exam (Primary Care) Vital Signs: Last Vital Signs Pulse 92 07/11/23 10:57 BP 146/84 H 07/11/23 10:57 Pulse Ox 96 07/11/23 10:57 Oxygen Delivery Method Room Air 07/11/23 10:57 BMI result Body Mass Index 36.3 Tobacco/Smoking Status: Tobacco use Status Tobacco use date assessed 07/11/23 07/11/23 11:07 Patient Tobacco Use Status Former Tobacco user 07/11/23 11:07 PHQ-9: PHQ-9 Score PHQ-9: Total score 0 07/11/23 12:20 Depression Screening Interpretation: Negative (is on Rx) Thrive Assessment: Date of Thrive Assessment Date Thrive assessed 07/11/23 07/11/23 11:07 Currently or been in a relationship where the following occur: no concerns reported Const General: no acute distress and alert HENMT Ears: TM's normal bilaterally and EAC's normal Throat: Yes posterior oropharynx normal and Yes tonsils normal (no TP congestion noted) Neck Neck: Yes no lymphadenopathy and Yes supple Resp Auscultation: clear to auscultation bilaterally, no rales and no wheezes Cardio Rate: regular rate Rhythm: regular rhythm Heart sounds: Murmur heart sound present systolic mid, soft and at the left sternal border GI Palpation (GI): Soft to palpation and nontender Auscultation: normal bowel sounds Skin Rashes: no rashes Extrem Other: currently has bandages over his right ankle, so ankle is not examined at this time General: Yes no clubbing, cyanosis or edema Assessment and Plan Assessment & Plan (1) Wound of right ankle: Code(s): S91.001A - Unspecified open wound, right ankle, initial encounter Qualifiers: Encounter type: sequela Qualified Code(s): S91.001S - Unspecified open wound, right ankle, sequela Plan: Had an abscess on his ankle last month - is S/P Abx Tx and wound has been slowly improving/resolving since Follow up with the Wound Clinic as scheduled (2) Pure hypercholesterolemia: Code(s): E78.00 - Pure hypercholesterolemia, unspecified Plan: Reinforced low cholesterol diet Continue Atorvastatin 20 mg QD Will recheck his labs and fasting lipids in 4 months for follow up (3) Coronary artery disease: Code(s): I25.10 - Atherosclerotic heart disease of [place] coronary artery without angina pectoris Qualifiers: Coronary Disease-Associated Artery/Lesion type: [place] artery [place] vs. transplanted heart: [place] heart Associated angina: with stable angina Qualified Code(s): I25.118 - Atherosclerotic heart disease of [place] coronary artery with other forms of angina pectoris Plan: Continue Aspirin 81 mg QD Follow up with cardiology as scheduled (4) HOCM (hypertrophic obstructive cardiomyopathy): Code(s): I42.1 - Obstructive hypertrophic cardiomyopathy Plan: Is clinically stable - slight outflow tract murmur heard could be from LVOT obstruction. Treatment will be very limited mainly because of his psychiatric issues Holter monitor done previously came out normal with no PVC or NSVT? Patient also had cardiac catheterization done in 2017 that showed normal coronary arteries Follow-up with cardiology as scheduled (5) Prolonged QT interval: Code(s): R94.31 - Abnormal electrocardiogram [ECG] [EKG] Plan: Mostly due to his antipsychotics - will need close monitoring (6) Essential hypertension: Code(s): I10 - Essential (primary) hypertension Plan: Reinforced low sodium diet - goal is systolic BP of at least 120 to 130 mm or less Continue Metoprolol ER 50 mg QD (7) Diabetes mellitus: Code(s): E11.9 - Type 2 diabetes mellitus without complications Qualifiers: Diabetes mellitus type: type 2 Diabetes mellitus fdc insulin use: without equipment 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 Subjectively does not complain of excessive daytime sleepiness. Clinical features are suggestive of obstructive sleep apnea. POLYSOMNOGRAM STUDY PERFORMED, IN SLEEP LAB ON 10/27/21 showed only mild JUDY especially in REM sleep. But nocturnal hypoxemia as noted above. Patient was started on oxygen 2 L/minute at nighttime. He claims that he is using it regularly , but thinks not much O2 coming out of [place] . ADVISED HIM TO CONTINUE USING O2 2 L/MINUTE. I DID WRITE A NOTE FOR THE STAFF AT [facility], TO MAKE SURE THAT HE IS GETTING OF O2 FLOW THROUGH THE NASAL CANNULA. ALSO IF SOMEONE COULD CHECK HIS O2 SAT AT NIGHT AND MAKE SURE IT IS ABOVE 90%. Code(s): G47.33 - Obstructive sleep apnea (adult) (pediatric) Plan: Reminded to continue using his Oxygen when sleeping at night DAILY and only needs to use it during the day when needed (if he feels SOB) Follow up with Sleep Medicine and with Pulmonary Medicine as scheduled (9) Pain in both feet: Code(s): M79.671 - Pain in right foot; M79.672 - Pain in left foot Plan: X-rays of both feet done previously showed (+) OA changes in both feet Advised again option of referral to Podiatry for further management if his foot symptoms persist or get worse (10) Bilateral ankle pain: Code(s): M25.571 - Pain in right ankle and joints of right foot; M25.572 - Pain in left ankle and joints of left foot Qualifiers: Chronicity: chronic Qualified Code(s): M25.571 - Pain in right ankle and joints of right foot; M25.572 - Pain in left ankle and joints of left foot; G89.29 - Other chronic pain Plan: Had some hardware (pin) removed from his right ankle by Dr. Arrieta in 10/2017 Ankle x-rays done last year revealed (+) osteoarthritis changes Follow up with orthopedics as scheduled (11) Bilateral knee pain: Code(s): M25.561 - Pain in right knee; M25.562 - Pain in left knee Qualifiers: Chronicity: unspecified Qualified Code(s): M25.561 - Pain in right knee; M25.562 - Pain in left knee Plan: Knee x-rays done a few months ago showed (+) OA changes in both knees Follow up with orthopedics as scheduled (12) BPH (benign prostatic hyperplasia): Code(s): N40.0 - Benign prostatic hyperplasia without lower urinary tract symptoms Qualifiers: Lower urinary tract symptom presence: symptoms present Lower urinary tract symptom detail: urinary frequency Qualified Code(s): N40.1 - Benign prostatic hyperplasia with lower urinary tract symptoms; R35.0 - Frequency of micturition Plan: Continue Alfuzosin ER 10 mg QD Follow up with urology as scheduled (13) Schizoaffective disorder: Code(s): F25.9 - Schizoaffective disorder, unspecified Qualifiers: Schizoaffective disorder type: bipolar Qualified Code(s): F25.0 - Schizoaffective disorder, bipolar type Plan: Continue Clozaril 200 mg + 50 mg QHS, Lorazepam 1 mg BID and Latuda 20 mg QAM Follow up with psychiatry (Freeman Rodríguez) as scheduled (14) Obesity (BMI 30-39.9): Comment: Patient is moderately obese. He is instructed to lose some weight. Being in a half-way, and having chronic Schizoactive disorder, makes it difficult for him to lose weight. Code(s): E66.9 - Obesity, unspecified Plan: Reinforced diet; exercise and weight appear to be unrealistic expectations in patient at this time due to his mutliple physical and psychiatric comorbidities Plan Follow up in 4 months Orders: Orders Complete Blood Count Auto Diff 4 Months I10 - Essential (primary) hypertension UA CC w/rflx Micro + Cult 4 Months R30.0 - Dysuria Microalbumin, Random (w Creat) 4 Months E11.9 - Type 2 diabetes mellitus without complications [place]. Panel Fast 4 Months E78.00 - Pure hypercholesterolemia, unspecified Lipid Panel 4 Months E78.00 - Pure hypercholesterolemia, unspecified TSH reflex Free T4 4 Months E78.00 - Pure hypercholesterolemia, unspecified Vitamin D 25-OH Total 4 Months E55.9 - Vitamin D deficiency, unspecified Hemoglobin A1c 4 Months E11.9 - Type 2 diabetes mellitus without complications Coding Level of Care Code Est Pt Level 4 (08585) Diagnoses Wound of right ankle, sequela S91.001S Encounter type: sequela Pure hypercholesterolemia E78.00 Coronary artery disease of [place] artery of [place] heart with stable angina pectoris I25.118 Coronary Disease-Associated Artery/Lesion type: [place] artery [place] vs. 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 insulin use: without equipment operator intermodal yard use Diabetes mellitus complication status: without complication JUDY (obstructive sleep apnea) G47.33 Pain in both feet M79.671; M79.672 Chronic pain of both ankles M25.571; M25.572; G89.29 Chronicity: chronic Pain in both knees, unspecified chronicity M25.561; M25.562 Chronicity: unspecified Benign prostatic hyperplasia with urinary frequency N40.1; R35.0 Lower urinary tract symptom presence: symptoms present Lower urinary tract symptom detail: urinary frequency Schizoaffective disorder, bipolar type F25.0 Schizoaffective disorder type: bipolar Obesity (BMI 30-39.9) E66.9
== END 2023-07-11 11:54 | disposition home or self-care (01) ==
PROVIDERS: PCP Internal Medicine; Visit Provider Internal Medicine
DX: S91.001A Unspecified open wound, right ankle, initial encounter (principal); E78.00 Pure hypercholesterolemia, unspecified; R94.31 Abnormal electrocardiogram [ECG] [EKG]; E11.9 Type 2 diabetes mellitus without complications; I10 Essential (primary) hypertension
CPT/HCPCS: 99214

== ENCOUNTER 2023-09-05 10:16 | Outpatient (AMB) | payer OTHER, MEDICAID, SELFPAY ==
[2023-09-05 10:21] VITALS: BP 132/78; PULSE 90; O2SAT 98; BMI 36.8
--- NOTE | 2023-09-05 10:21 | A.OFFPC_ITS ---
Vital Signs 09/05/23 10:21 Height 5 ft 8 in Weight 242 lb BMI 36.8 BP 132/78 Blood Pressure Location Lt brachial Position Sitting Pulse 90 Pulse Source Pulse Oximeter Temp Source Skin Pulse Oximetry (%) 98 Oxygen Delivery Method Room Air Intake Visit Reasons: PE Allergies lithium [[place]] Allergy (Severe, Verified 09/05/23 10:47) TOXICITY thiothixene Allergy (Severe, Verified 09/05/23 10:47) SWELLING barium sulfate [BARIUM SULFATE] Allergy (Intermediate, Verified 09/05/23 10:47) NAUSEA & VOMITING haloperidol Allergy (Intermediate, Verified 09/05/23 10:47) MUSCLE TENSION IN LEGS benztropine Allergy (Unknown, Verified 09/05/23 10:47) benztropine mesylate- unknown diphenhydramine [From Benadryl] Allergy (Unknown, Verified 09/05/23 10:47) urinary retention fluphenazine Allergy (Unknown, Verified 09/05/23 10:47) UNKNOWN gabapentin [From NEURONTIN] Allergy (Unknown, Verified 09/05/23 10:47) UNKNOWN prolixen Allergy (Unknown, Uncoded 09/05/23 10:47) Unknown Medication List - Last Reconciled 09/05/23 by JENNI Hurtado acetaminophen 500 mg PO Q6H PRN albuterol sulfate 90 mcg/actuation (ProAir HFA) 2 puffs inhalation Q4-6H PRN alfuzosin ER 10 mg PO BEDTIME 90 days alum-mag hydroxide-simeth 200-200-20 mg/5 mL 10 mL PO TID PRN aspirin 1 tab PO DAILY 90 days atorvastatin 20 mg PO DAILY cholecalciferol (vitamin D3) 25 mcg PO DAILY clozapine 75 mg PO BEDTIME clozapine 200 mg PO BEDTIME docusate sodium 1 cap PO BID hydrochlorothiazide 12.5 mg PO DAILY linagliptin (Tradjenta) 5 mg PO DAILY lorazepam 0.5 mg PO BEDTIME lorazepam 1 mg PO BID@0800,1600 losartan 25 mg PO DAILY 90 days lurasidone 60 mg PO DAILY meloxicam 15 mg PO DAILY metformin ER 500 mg PO DAILY metoprolol succinate ER 50 mg PO BID polyethylene glycol 3350 (Miralax) 17 grams PO DAILY PRN senna leaf extract (senna) 15 mL PO BEDTIME PRN testosterone (AndroGel) 2 packets transdermal DAILY trazodone 50 mg PO BEDTIME Tobacco use date assessed: 07/11/23 Dental Screening Dental Screen Date: 09/05/23 Did you have a dental visit in the last 12 months?: No Did you have a dental problem in the last 6 months where you did not have access to dental care?: No HPI PE HPI Details Patient is a 58 year male who presents today for physical exam. Patient of Dr. Hogue. Medical history significant for schizoaffective disorder-followed by Psychiatry, CAD, hypertension, hypercholesterolemia, obesity, smoker-reports smoking about 5 cigarettes per day-declined nicotine patch-will refer for low-dose chest CT scan, JUDY-on oxygen at night-followed by pulmonology, diabetes. Today we discussed patient's need for colon cancer screening-he has referral to GI-will follow-up on this. Reports diabetic eye exam last year, reports legally blind in his left eye-will call for another diabetic eye exam. Today he declined tetanus and pneumonia vaccines. No shortness of breath or chest pain. [facility] Medical History (Updated 09/05/23 @ 13:15 by JENNI Hurtado) COVID-19 Thought disorder Nocturnal hypoxemia Constipation COPD (chronic obstructive pulmonary disease) JUDY (obstructive sleep apnea) Smoker BPH (benign prostatic hyperplasia) Diabetes mellitus Obesity (BMI 30-39.9) Pure hypercholesterolemia Prolonged QT interval Essential hypertension HOCM (hypertrophic obstructive cardiomyopathy) Aggression Hypertension Coronary artery disease CHF (congestive heart failure) Cardiac arrhythmia Myocardial infarction Schizoaffective disorder Surgical History History of ankle surgery History of intestinal surgery History of transurethral resection of prostate Family History Father Medical history unknown Mother Medical history unknown Sister Alive and well Social History Household Members: Other Household Members Other:: longterm Housing: Other Housing Other:: longterm Do you presently have visiting nurse or other home services: Yes Alcohol intake: current Alcohol intake frequency: holidays/special occasions only Comment: camera on. Patient Tobacco Use Status: Current everyday Tobacco user Cigarettes Per Day: 5 Second Hand Smoke Exposure: No Substance Use Type: Unknown service: No Current occupational status: disabled Sexual orientation: Did not discuss. Cognitive needs: Yes Hearing needs: No Vision needs: Yes Questionnaire PHQ-9 Over the last 2 weeks, how often have you been bothered by any of the following problems? 1. Little interest or pleasure in doing things: not at all 2. Feeling down, depressed, or hopeless: not at all 3. Trouble falling or staying asleep, or sleeping too much: not at all 4. Feeling tired or having little energy: not at all 5. Poor appetite or overeating: not at all 6. Feeling bad about yourself - or that you are a failure or have let yourself or your family down: not at all 7. Trouble concentrating on things, such as reading the newspaper or watching television: not at all 8. Moving or speaking so slowly that other people could have noticed. Or the opposite - being so fidgety or restless that you have been moving around a lot more than usual: not at all 9. Thoughts that you would be better off or of hurting yourself in some way: not at all Total score: 0 Depression Screening Interpretation: Negative Depression Screening Done: Yes 57349 - PHQ-9 Billing: Yes Source: Developed by Drs. Ga Richard, Rosio Grigsby, Jose Johnson and colleagues, with an educational lulu from [employer]. Thrive Questionnaire Date Thrive assessed: 07/11/23 I am a: Patient What is your living situation today?: I have a steady place to live Within the past 12 months, did the food you bought not last and you didn't have the money to get more?: Never true Within the past 12 months, did you worry whether your food would run out before you got money to buy more?: Never true Currently or been in a relationship where the following occur: no concerns reported AUDIT C Alcohol Use Questionnaire (AUDIT-C) 1. How often do you have a drink containing alcohol?: Monthly or less 2. How many drinks containing alcohol do you have on a typical day when you are drinking?: 1 or 2 3. How often do you have six or more drinks on one occasion?: Never Total Score: 1 Score Reviewed/Action Taken: No LINN-7 AMB Questionnaire LINN-7 Date LINN - 7 assessed: 09/05/23 Feeling nervous, anxious, or on edge: 0 = Not at all Not being able to stop or control worryin = Not at all Worrying too much about different things: 0 = Not at all Trouble relaxin = Not at all Being so restless that it is hard to sit still: 0 = Not at all Becoming easily annoyed or irritable: 0 = Not at all Feeling afraid as if something awful might happen: 0 = Not at all Total LINN-7 score (0-4 normal; 5-9 mild; 10-14 moderate; 15-21 severe): 0 Source: Developed by Drs. Ga Richard, Rosio Grigsby, Jose Johnson and colleagues, with an educational lulu from [employer]. LINN-7 Assessment Billing LINN-7 Assessment Tool: LINN-7 Assessment 76381 Review of Systems Const Denies body aches, Denies chills, Denies fever(s) and Denies headache(s) Eyes Reports as per HPI ENT Denies dizziness, Denies otalgia, Denies headache(s), Denies nasal discharge, Denies sinus pain and Denies sore throat Card Denies chest pain, Denies edema, Denies lightheadedness and Denies dyspnea Resp Denies cough, Denies dyspnea and Denies wheezing GI Denies abdominal pain, Denies constipation, Denies diarrhea, Denies nausea and Denies vomiting Denies dysuria Musc Denies myalgias Skin/Breast Denies rash Neuro Denies dizziness and Denies headache(s) Aller/Immun Denies wheezing Physical exam (Primary Care) Vital Signs: Last Vital Signs Pulse 90 09/05/23 10:21 BP 132/78 09/05/23 10:21 Pulse Ox 98 09/05/23 10:21 Oxygen Delivery Method Room Air 09/05/23 10:21 BMI result Body Mass Index 36.8 Tobacco/Smoking Status: Tobacco use Status Tobacco use date assessed 07/11/23 09/05/23 10:22 Patient Tobacco Use Status Current everyday Tobacco 09/05/23 10:28 PHQ-9: PHQ-9 Score PHQ-9: Total score 0 09/05/23 10:58 Depression Screening Interpretation: Negative Thrive Assessment: Date of Thrive Assessment Date Thrive assessed 07/11/23 09/05/23 10:22 Currently or been in a relationship where the following occur: no concerns reported Const General: cooperative and no acute distress Orientation/consciousness: patient oriented x3 HENMT Head: Yes normocephalic and Yes atraumatic Ears: TM's normal bilaterally Face and sinus: Yes sinuses nontender Mouth: oropharynx normal and moist mucous membranes Throat: Yes posterior oropharynx normal Eyes General: appearance normal, both eyes and all related structures Pupils: Equal, round and reactive pupils present EOM: EOMs intact bilaterally Neck Neck: Yes normal visual inspection, Yes full ROM and Yes no lymphadenopathy Thyroid: Thyroid normal Resp Effort & Inspection: normal respiratory effort and able to speak in complete sentences Auscultation: clear to auscultation bilaterally, no crackles, no rales, no rhonchi and no wheezes Cardio Rate: regular rate Rhythm: regular rhythm Heart sounds: S1 normal heart sound present, S2 normal heart sound present and no murmurs GI Palpation (GI): Soft to palpation, not firm, nontender, no guarding, not rigid and no hepatosplenomegaly Auscultation: normal bowel sounds General: No CVA tenderness Back/Spine/Pelvis Back: No CVA tenderness Skin General skin exam: no rashes or lesions noted Neuro General: patient oriented x3 Cranial nerves: Yes Equal, round and reactive pupils present Gait exam (Neuro): Normal gait present Extrem General: Yes full ROM and No edema Assessment and Plan Assessment & Plan (1) JUDY (obstructive sleep apnea): Comment: He has past history of obstructive sleep apnea, gave up using CPAP many years ago. Subjectively does not complain of excessive daytime sleepiness. Clinical features are suggestive of obstructive sleep apnea. POLYSOMNOGRAM STUDY PERFORMED, IN SLEEP LAB ON 10/27/21 showed only mild JUDY especially in REM sleep. But nocturnal hypoxemia as noted above. Patient was started on oxygen 2 L/minute at nighttime. He claims that he is using it regularly , but thinks not much O2 coming out of [place] . ADVISED HIM TO CONTINUE USING O2 2 L/MINUTE. I DID WRITE A NOTE FOR THE STAFF AT [facility], TO MAKE SURE THAT HE IS GETTING OF O2 FLOW THROUGH THE NASAL CANNULA. ALSO IF SOMEONE COULD CHECK HIS O2 SAT AT NIGHT AND MAKE SURE IT IS ABOVE 90%. Code(s): G47.33 - Obstructive sleep apnea (adult) (pediatric) Plan: On oxygen at bedtime Follow-up with pulmonology (2) Smoker: Comment: He has been smoking for many years, about half pack of cigarettes a day. Trying to cut it down. He claims that he is down to 2-3 cigarettes a day. Encouraged to quit completely ,which may not happen . Code(s): F17.200 - Nicotine dependence, unspecified, uncomplicated Plan: Encouraged smoking cessation Declined nicotine patch Will refer for low-dose chest CT scan (3) Obesity (BMI 30-39.9): Comment: Patient is moderately obese. He is instructed to lose some weight. Being in a alf, and having chronic Schizoactive disorder, makes it difficult for him to lose weight. Code(s): E66.9 - Obesity, unspecified Plan: Healthy food choices and exercise as tolerated (4) Pure hypercholesterolemia: Code(s): E78.00 - Pure hypercholesterolemia, unspecified Plan: Continue atorvastatin Low-cholesterol diet (5) Hypertension: Code(s): I10 - Essential (primary) hypertension Qualifiers: Hypertension type: essential hypertension Qualified Code(s): I10 - Essential (primary) hypertension Plan: Goal BP equal or less than 140/90 Continue current treatment Low-sodium diet and exercise (6) Adult general medical exam: Code(s): Z00.00 - Encounter for general adult medical examination without abnormal findings (7) Diabetes mellitus: Code(s): E11.9 - Type 2 diabetes mellitus without complications Plan: A1c 6.6 02/2023 Patient was encouraged to complete his blood work Continue current treatment Low-carbohydrate diet Plan Keep appointment with PCP as scheduled or follow-up sooner as needed Orders: Referrals Thoracic Surgery Referral F17.200 - Nicotine dependence, unspecified, uncomplicated Coding Level of Care Code Est Pt Prev Care 40-64y(45979) Diagnoses JUDY (obstructive sleep apnea) G47.33 Smoker F17.200 Obesity (BMI 30-39.9) E66.9 Pure hypercholesterolemia E78.00 Essential hypertension I10 Hypertension type: essential hypertension Adult general medical exam Z00.00 Diabetes mellitus E11.9 Additional Codes LINN-7 Assessment Billing - LINN-7 Assessment Tool: LINN-7 Assessment 12444 ([id number])
== END 2023-09-05 11:02 | disposition home or self-care (01) ==
PROVIDERS: PCP Internal Medicine; Visit Provider Nurse Practitioner Family
DX: Z00.00 Encounter for general adult medical examination without abnormal findings (principal); E11.9 Type 2 diabetes mellitus without complications; F17.210 Nicotine dependence, cigarettes, uncomplicated; G47.33 Obstructive sleep apnea (adult) (pediatric); E66.9 Obesity, unspecified; E78.00 Pure hypercholesterolemia, unspecified; I10 Essential (primary) hypertension; Z68.36 Body mass index [BMI] 36.0-36.9, adult
CPT/HCPCS: 99396

== ENCOUNTER 2023-09-18 19:02 | Emergency (ER) | payer OTHER, MEDICAID, SELFPAY ==
--- NOTE | ~2023-09-18 | XR_ITS ---
EXAMINATION: XR CHEST CLINICAL INFORMATION: Ingestion. COMPARISON: Prior chest radiographs, most recently 09/25/2021. TECHNIQUE: Frontal view of the chest was obtained. FINDINGS: No significant abnormality is noted involving the heart, lungs, mediastinum, bony thorax or soft tissues. There is stable mild elevation of the right hemidiaphragm. XR/XR chest 1V IMPRESSION: Unremarkable examination.
[2023-09-18 19:23] VITALS: BP 114/75; BP 134/75; PULSE 102; PULSE 98; RESP 20; TEMP 36.4; O2SAT 95; BMI 36.5
--- NOTE | 2023-09-18 19:57 | MHC.EDTECH ---
Patient came in by ambulance changed into crisis attire, security at bedside for changeover,vitals were taken. Patient has 80.00 Hart in wallet,all belongings locked in the pod in locker 11
--- NOTE | 2023-09-18 20:28 | ED.PSYCH ---
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 I specifically spoke to EMS and they state on scene it was about a little bit more than a capful. The patient has no symptoms right now and no lesions in the mouth. No cough, pain in mouth, difficulty breathing. MD complaint: suicidal ideation Onset (ago): week(s) Duration: intermittent History of same: Yes Relieving factors: none Exacerbating factors: none Context: other Associated psychiatric symptoms: depression and suicidal ideation Associated symptoms: denies other symptoms If self harm: admits thoughts of self harm and has plan Related Data Home Medications Medication Instructions Recorded Confirmed docusate sodium 100 mg capsule 1 cap PO BID 08/18/22 09/05/23 acetaminophen 500 mg tablet 500 mg PO Q6H PRN Pain 04/20/23 09/05/23 albuterol sulfate 90 mcg/actuation 2 puff inhalation Q4-6H PRN 04/20/23 09/05/23 aerosol inhaler (ProAir HFA) SHORTNESS OF BREATH/WHEEZING aluminum-mag hydroxide-simethicone 10 ml PO TID PRN Indigestion 04/20/23 09/05/23 200 mg-200 mg-20 mg/5 mL oral susp atorvastatin 20 mg tablet 20 mg PO DAILY 04/20/23 09/05/23 clozapine 100 mg tablet 200 mg PO BEDTIME 04/20/23 09/05/23 clozapine 25 mg tablet 75 mg PO BEDTIME 04/20/23 09/05/23 hydrochlorothiazide 12.5 mg capsule 12.5 mg PO DAILY 04/20/23 09/05/23 lorazepam 0.5 mg tablet 0.5 mg PO BEDTIME 04/20/23 09/05/23 lorazepam 1 mg tablet 1 mg PO BID@0800,1600 04/20/23 09/05/23 lurasidone 60 mg tablet 60 mg PO DAILY 04/20/23 09/05/23 metformin 500 mg tablet,extended 500 mg PO DAILY 04/20/23 09/05/23 release 24 hr polyethylene glycol 3350 17 17 g PO DAILY PRN Constipation 04/20/23 09/05/23 gram/dose oral powder (Miralax) trazodone 50 mg tablet 50 mg PO BEDTIME 04/20/23 09/05/23 Previous Rx's Medication Instructions Recorded alfuzosin 10 mg tablet,extended 10 mg PO BEDTIME 90 days #90 tabs 01/03/23 release 24 hr senna leaf extract 176 mg/5 mL 15 ml PO BEDTIME PRN constipation 01/23/23 oral syrup (senna) #237 mL aspirin 81 mg chewable tablet 1 tab PO DAILY 90 days #90 tabs 03/14/23 meloxicam 15 mg tablet 15 mg PO DAILY #14 tabs 06/08/23 testosterone 1.62 % (20.25 mg/1.25 2 packet transdermal DAILY #37.5 07/09/23 gram) transdermal gel packet grams (AndroGel) cholecalciferol (vitamin D3) 25 25 mcg PO DAILY #90 tabs 08/06/23 mcg (1,000 unit) tablet linagliptin 5 mg tablet (Tradjenta) 5 mg PO DAILY #30 tabs 08/14/23 metoprolol succinate 50 mg 50 mg PO BID #60 tabs 08/14/23 tablet,extended release 24 hr losartan 25 mg tablet 25 mg PO DAILY 90 days #90 tabs 08/20/23 Allergies Allergy/AdvReac Type Severity Reaction Status Date / Time lithium [[place]] Allergy Severe TOXICITY Verified 09/05/23 10:47 thiothixene Allergy Severe SWELLING Verified 09/05/23 10:47 barium sulfate Allergy Intermediate NAUSEA & Verified 09/05/23 10:47 [BARIUM SULFATE] VOMITING haloperidol Allergy Intermediate MUSCLE Verified 09/05/23 10:47 TENSION IN LEGS benztropine Allergy Unknown benztropine Verified 09/05/23 10:47 mesylate- unknown diphenhydramine Allergy Unknown urinary Verified 09/05/23 10:47 [From Benadryl] retention fluphenazine Allergy Unknown UNKNOWN Verified 09/05/23 10:47 gabapentin [From NEURONTIN] Allergy Unknown UNKNOWN Verified 09/05/23 10:47 prolixen Allergy Unknown Unknown Uncoded 11/29/23 10:47 Review of Systems Review of Systems: Constitutional : No Fever, No Chills ENT/Mouth : No Ear Pain, No Nasal Congestion, No sore throat Eyes: No Eye Pain, No Swelling, No Redness Cardiovascular : No Chest Pain, No SOB Respiratory : No Cough, No Sputum, No Dyspnea Gastrointestinal : No Nausea, No Vomiting, No Diarrhea, No Hematochezia, No Melena Genitourinary : No Dysuria, No Urinary Frequency, No Hematuria Musculoskeletal : No Myalgias Skin : No Skin Lesions, No rash Neuro : No Weakness, No Numbness, No Paresthesias, No Dizziness, No Headache Psych : positive Anxiety, positive Depression, positive SI no HI Heme/Lymph: No Lymphadenopathy Endocrine : No Polyuria, No Polydipsia All other systems reviewed and are negative [facility] Past Medical History Attestation statement: The following information was validated with the patient. Source: old records reviewed Medical History COVID-19 Thought disorder Nocturnal hypoxemia Constipation COPD (chronic obstructive pulmonary disease) JUDY (obstructive sleep apnea) Smoker BPH (benign prostatic hyperplasia) Diabetes mellitus Obesity (BMI 30-39.9) Pure hypercholesterolemia Prolonged QT interval Essential hypertension HOCM (hypertrophic obstructive cardiomyopathy) Aggression Hypertension Coronary artery disease CHF (congestive heart failure) Cardiac arrhythmia Myocardial infarction Schizoaffective disorder Surgical History History of ankle surgery History of intestinal surgery History of transurethral resection of prostate Family History Family History Father Medical history unknown Mother Medical history unknown Sister Alive and well Social History Social History Household Members: Other Household Members Other:: long term Housing: Other Housing Other:: long term Do you presently have visiting nurse or other home services: Yes Alcohol intake: current Alcohol intake frequency: holidays/special occasions only Comment: camera on. Patient Tobacco Use Status: Current everyday Tobacco user Cigarettes Per Day: 5 Second Hand Smoke Exposure: No Substance Use Type: Unknown Advance Directives: No Advance Directives Information Provided: No service: No Current occupational status: disabled Sexual orientation: Did not discuss. Cognitive needs: Yes Hearing needs: No Vision needs: Yes Physical Exam Vital Signs: Vital Signs: Last Vital Signs Temp 97.5 F 09/18/23 22:11 Pulse 81 09/18/23 22:11 Resp 18 09/18/23 22:11 BP 128/60 09/18/23 22:11 Pulse Ox 95 09/18/23 22:11 O2 Del Method Room Air 09/18/23 22:11 BMI result Body Mass Index 36.5 Appearance: Alert. Oriented X3. No acute distress. Eyes: Pupils equal, round and reactive to light. ENT: Pharynx normal. no redness, no lesions, normal mucosa, normal voice, no drooling Neck: Normal inspection. Neck supple. CVS: Normal heart rate and rhythm. Pulses normal. Respiratory: No respiratory distress. Breath sounds normal. Abdomen: Soft and nontender. Skin: Skin warm and dry. Normal skin color. Normal skin turgor. Extremities: No lower extremity edema. No calf ttp Neuro: Oriented X 3. No motor deficit. No sensory deficit. CN2-12 intact Course Course Course Narrative: Physician observation started at 1050pm. Patient placed in physician observation because the patient needed more time for CARE team to assess the need for psych admission. At the time observation was started the patient's vitals were stable, patient is alert and oriented, Neuro: nonfocal, CV RRR, Lungs clear has no medical complaints x 4 hours. Medical Decision Making Medical Decision Making [facility] Narrative: 58 yo male with PMH of DM, BPH, OA, JUDY, HLD, prolonged qtc, CAD, HOCM, schizoaffective disorder here with c/o SI and attempt with drinking household general cleaner with bleach at 630pm - he has no signs of irritation or resp involvement. He has no GI upset. EMS tells me it is just a capful. At this time will obtain CXR, labs and observe for 4 hours. CARE team consult when medically cleared. Differential Diagnosis Differential Diagnoses: The differential diagnosis associated with the presentation includes SI and ingestion Admission/Observation Consideration of admission/observation: Escalation of care including admission/observation considered Consult Healthcare Provider Management of the patient was discussed with: Behavioral Health Provider Lab Data [facility] Lab Attestation statement: I reviewed the patient's lab results. 09/18/23 21:33 09/18/23 21:33 Labs: Lab Results 09/18/23 Range/Units 21:33 WBC 10.6 (4.8-10.8) X10*3/uL RBC 5.37 (4.60-5.80) X10*6/uL Hgb 14.5 D (14.0-18.0) g/dl Hct 44.2 (42.0-52.0) % MCV 82.3 (80.0-98.0) fL MCH 27.0 (27.0-33.0) pg MCHC 32.8 (31.0-36.0) g/dl RDW 15.8 (11.0-16.0) % Plt Count 200 (160-400) X10*3/uL MPV 11.7 (9.4-12.4) fL Immature Gran % (Auto) 0.3 (0.0-0.4) % Neut % (Auto) 77.8 H (45-73) % Lymph % (Auto) 13.0 L (20-40) % [place] % (Auto) 8.2 (2-11) % Eos % (Auto) 0.3 (0-4) % Baso % (Auto) 0.4 (0-2) % Lymph # (Auto) 1.4 (1.2-4.9) X10*3/uL [place] # (Auto) 0.9 (0.1-1.2) X10*3/uL Eos # (Auto) 0.0 (0.0-0.4) X10*3/uL Baso # (Auto) 0.0 (0.0-0.2) X10*3/uL Abs Immat Gran (auto) 0.03 (0.00-0.03) X10*3/uL Absolute Neuts (auto) 8.3 (2.0-8.3) x10*3/uL Absolute Nucleated RBC 0.000 (0.0-0.012) X10*3/uL Nucleated RBC % (auto) 0.0 (0.0-0.2) /100WBC Sodium 145 (135-145) mmol/L Potassium 3.8 (3.3-5.1) mmol/L Chloride 111 H (96-108) mmol/L Carbon Dioxide 23 (22-29) mmol/L Anion Gap 15 (12-20) BUN 27 H (9-16) mg/dL Creatinine 1.49 H (0.5-1.4) mg/dL Estim Creat Clear Calc 63.8 Estimated GFR 48 Random Glucose 132 H (60-115) mg/dL Calcium 10.0 (8.4-10.2) mg/dL Magnesium 1.9 (1.6-2.6) mg/dL Total Bilirubin 0.3 (0.0-1.0) mg/dL Direct Bilirubin 0.2 (0.0-0.5) mg/dL AST 24 (5-37) U/L ALT 14 (0-40) U/L Alkaline Phosphatase 70 (39-117) U/L Total Protein 7.6 (6.5-8.0) g/dL Albumin 4.1 (3.5-5.0) g/dL Salicylates < 5.0 L (15-30) mg/dL Acetaminophen < 3 (<30) mcg/mL Ethyl Alcohol < 10 mg/dL COVID-19 (DRARIUS) Negative (Negative) COVID-19 Clin Com See Note Independent Interpretation I performed an independent interpretation of an: Plain X-Ray Radiology Impression Discussion of test interpretation with radiology: I have reviewed the radiologist's reading. Independent Historian Clinical information obtained from an independent historian. History obtained from or confirmed by: EMS External Record Review External record reviewed: Inpatient record Discharge Plan Discharge Clinical Impression: Suicidal ideation Patient Disposition: Still a Patient Prescriptions: No Action alfuzosin 10 mg tablet extended release 24 hr 10 mg PO BEDTIME 90 Days Qty: 90 1RF Rx Instructions: Take before bedtime senna leaf extract [senna] 176 mg/5 mL syrup 15 ml PO BEDTIME PRN (Reason: constipation) Qty: 237 11RF aspirin 81 mg tablet,chewable 1 tab PO DAILY 90 Days Qty: 90 1RF testosterone [AndroGel] 1.62 % (20.25 mg/1.25 gram) gel in packet 2 packet TRANSDERMAL DAILY Qty: 37.5 1RF Rx Instructions: apply 20.25 mg /1 packet to max area of EACH upper arm and shoulder cholecalciferol (vitamin D3) 25 mcg (1,000 unit) tablet 25 mcg PO DAILY Qty: 90 0RF Tradjenta 5 mg tablet 5 mg PO DAILY Qty: 30 2RF metoprolol succinate 50 mg tablet extended release 24 hr 50 mg PO BID Qty: 60 2RF losartan 25 mg tablet 25 mg PO DAILY 90 Days Qty: 90 1RF docusate sodium 100 mg capsule 1 cap PO BID atorvastatin 20 mg tablet 20 mg PO DAILY trazodone 50 mg tablet 50 mg PO BEDTIME clozapine 100 mg tablet 200 mg PO BEDTIME hydrochlorothiazide 12.5 mg capsule 12.5 mg PO DAILY clozapine 25 mg tablet 75 mg PO BEDTIME lorazepam 1 mg tablet 1 mg PO BID@0800,1600 metformin 500 mg tablet extended release 24 hr 500 mg PO DAILY lurasidone 60 mg tablet 60 mg PO DAILY lorazepam 0.5 mg Tablet 0.5 mg PO BEDTIME polyethylene glycol 3350 [Miralax] 17 gram/dose Powder 17 g PO DAILY PRN (Reason: Constipation) alum-mag hydroxide-simeth [Mylanta] 200-200-20 mg/5 mL Suspension 10 ml PO TID PRN (Reason: Indigestion) Rx Instructions: administer between meals and at bedtime albuterol sulfate [ProAir HFA] 90 mcg/actuation Hfa Aerosol Inhaler 2 puff INHALATION Q4-6H PRN (Reason: SHORTNESS OF BREATH/WHEEZING) acetaminophen 500 mg Tablet 500 mg PO Q6H PRN (Reason: Pain) meloxicam 15 mg tablet 15 mg PO DAILY Qty: 14 0RF
--- NOTE | 2023-09-18 20:44 | MHC.CARE ---
CARE Team checks in with pt, as pt is known to t/w. Crisis assessment is not taking place att, as medical clearance is still pending. Pt is a 58 year old male who is well known to [facility] behavioral health programs. He has had lengthy admissions in the past to the behavioral health units. Pt reports that today, he called his [facility] worker and expressed his desire to be placed in a rest home instead of a fpc. He reports that [facility] worker instructed pt to call crisis. He reports that instead of calling crisis he drank 4 oz of tilex, which contains bleach. Pt denies to t/w that this was an attempt to end his life, reporting that his goal was to be sent to a rest home. He denies AVH. Speech is slightly disorganized. Pt will be seen by the CARE Team to determine appropriate treatment recommendations once medically cleared. Pt appears calm and cooperative att, does have a hx of aggression toward staff.
--- NOTE | 2023-09-18 21:10 | MHC.EDTECH ---
Labs were obtained and sent to lab, patient is unable to give a urine sample at this time will re-attempt
[2023-09-18 21:38] LABS: MANUAL DIFF FLAG NO
[2023-09-18 21:40] LABS: Basophils Percent Auto 0.4 % (0-2); Eosinophils Percent Auto 0.3 % (0-4); Hematocrit 44.2 % (42.0-52.0); Hemoglobin 14.5 g/dl (14.0-18.0); Imm Gran Abs Auto 0.03 X10*3/uL (0.00-0.03); Imm Gran Pct Auto 0.3 % (0.0-0.4); Lymphocytes Absolute Auto 1.4 X10*3/uL (1.2-4.9); Mean Corpuscular HGB Conc 32.8 g/dl (31.0-36.0); Mean Corpuscular Volume 82.3 fL (80.0-98.0); Mean Platelet Volume 11.7 fL (9.4-12.4); Monocytes Absolute Auto 0.9 X10*3/uL (0.1-1.2); Monocytes Percent Auto 8.2 % (2-11); Neutrophils Absolute Auto 8.3 x10*3/uL (2.0-8.3); Neutrophils Percent Auto 77.8 % (45-73); Platelet Count 200 X10*3/uL (160-400); Red Blood Count 5.37 X10*6/uL (4.60-5.80); Red Cell Distribution Width 15.8 % (11.0-16.0); White Blood Count 10.6 X10*3/uL (4.8-10.8)
[2023-09-18 21:52] LABS: COVID-19 Test Negative (Negative); IDNOW Serial# 08D9AD1C
[2023-09-18 21:58] LABS: Alanine Aminotransferase 14 U/L (0-40); Albumin Level 4.1 g/dL (3.5-5.0); Alkaline Phosphatase 70 U/L (39-117); Anion Gap 15 (12-20); Aspartate Amino Transferase 24 U/L (5-37); Bilirubin Direct 0.2 mg/dL (0.0-0.5); Bilirubin Total 0.3 mg/dL (0.0-1.0); Blood Urea Nitrogen 27 mg/dL (9-16); Carbon Dioxide 23 mmol/L (22-29); Chloride 111 mmol/L (96-108); Creatinine Clr Calc Pharmacy 63.8; Estimated Glomerular Filt Rate 48; Ethanol < 10 mg/dL; Glucose Random 132 mg/dL (60-115); Magnesium 1.9 mg/dL (1.6-2.6); Potassium 3.8 mmol/L (3.3-5.1); Sodium 145 mmol/L (135-145); Total Protein 7.6 g/dL (6.5-8.0)
[2023-09-18 22:01] LABS: Acetaminophen LAB < 3 mcg/mL (<30); Salicylate < 5.0 mg/dL (15-30)
[2023-09-18 22:11] VITALS: BP 128/60; PULSE 81; RESP 18; TEMP 36.4; O2SAT 95
--- NOTE | 2023-09-18 22:12 | MHC.EDTECH ---
Hourly rounds and vitals completed, attempted to get a urine,patient is unable to at this time. 1-1 sitter at bedside for safety
[2023-09-18 23:51] LABS: Appearance Urine Clear; Color Urine Yellow; Glucose Urine UA Negative (Negative); Leukocyte Esterase Urine Negative (Negative); Nitrite Urine Negative (Negative); PH 5.5 (5.0-9.0); UMIC TRIGGER UACC YES; Urine Blood Negative (Negative); Urine Ketones Negative (Negative); Urine Protein 30 (1+) mg/dL (Neg-Trace)
[2023-09-18 23:53] LABS: Bacteria Urine None Seen (None Seen); RBC Urine 0-2 /HPF (0-2); WBC Urine 0-5 /HPF (0-5)
[2023-09-18 23:56] LABS: Amphetamine Screen Urine Not Detected (Not Detect); Barbiturates, Urine Not Detected (Not Detect); Benzodiazepines Screen Urine Not Detected (Not Detect); Cannabinoid Screen Urine Not Detected (Not Detect); Cocaine Screen Urine Not Detected (Not Detect); Fentanyl, urine Not Detected (Not Detect); Opiate Screen Urine Not Detected (Not Detect); Phencyclidine Screen Urine Not Detected (Not Detect)
[2023-09-19] MEDS: LORazepam 1 MG TABLET 2 MG PO (03:23)
[2023-09-19] MEDS: Cholecalciferol (Vitamin D3) 25 MCG TABLET PO (11:29)
[2023-09-19] MEDS: Atorvastatin Calcium 20 MG TABLET PO (11:29)
[2023-09-19] MEDS: Aspirin 81 MG TAB.CHEW PO (11:29)
[2023-09-19] MEDS: Lurasidone HCl 20 MG TABLET 60 MG PO (11:29)
[2023-09-19] MEDS: metFORMIN HCl ER 500 MG TAB.ER.24H PO (11:30)
[2023-09-19] MEDS: hydroCHLOROthiazide 12.5 MG TABLET PO (11:30)
[2023-09-19] MEDS: Losartan Potassium 25 MG TABLET PO (11:30)
[2023-09-19] MEDS: Metoprolol Succinate ER 50 MG TAB.ER.24H PO (11:30)
[2023-09-19] MEDS: Docusate Sodium 100 MG CAPSULE PO (11:30)
[2023-09-19 11:33] VITALS: BP 140/108; PULSE 83; TEMP 36.4; O2SAT 96
--- NOTE | 2023-09-19 12:47 | MHC.CARE ---
Disposition is for [facility], referral sent to [facility]. Per discussion with Pt's assistant clinical nurse manager, Rebecca, pt will remain here until [facility] reaches a decision.
--- NOTE | 2023-09-19 13:35 | MHC.CARE ---
Client accepted to [facility]. Staff at patient's [facility] will pick him up at 3:30pm at [facility] with belongings/meds for transport to [facility].
[2023-09-19 14:15] VITALS: RESP 16
--- NOTE | 2023-09-19 14:16 | PC.NURSE ---
Navid was in his room resting this shift and was compliant with all scheduled medications. Appetite good. Navid reporting he feels he is ready to discharge. Paperwork signed and belongings secured.
== END 2023-09-19 14:26 | disposition home or self-care (01) ==
PROVIDERS: Emergency Provider Emergency Medicine
DX: R45.851 Suicidal ideations (principal); F33.1 Major depressive disorder, recurrent, moderate; I25.10 Atherosclerotic heart disease of native coronary artery without angina pectoris; F25.9 Schizoaffective disorder, unspecified; Z20.822 Contact with and (suspected) exposure to COVID-19; Z11.52 Encounter for screening for COVID-19; Z79.899 Other long term (current) 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
CPT/HCPCS: 36415; 71045; 80048; 80076; 80143; 80179; 80307; 81001; 83735; 85025; 87635; 99284; S9485

== ENCOUNTER 2023-10-10 11:55 | Inpatient (IN) | payer OTHER, MEDICAID, SELFPAY ==
[2023-10-10] VITALS (12 sets, daily range): BP systolic 91–126; BP diastolic 52–75; PULSE 92–117; RESP 16–32; TEMP 36.8–39; O2SAT 27–98; BMI 37.6
--- NOTE | 2023-10-10 12:29 | ECG_ITS ---
Test Reason : SOB Blood Pressure : / mmHG Vent. Rate : 110 BPM Atrial Rate : 110 BPM P-R Int : 162 ms QRS Dur : 106 ms QT Int : 360 ms P-R-T Axes : 096 026 176 degrees QTc Int : 487 ms Sinus tachycardia Left ventricular hypertrophy with repolarization abnormality ( Sokolow-Vences ) Abnormal ECG When compared with ECG of 15-MAY-2022 18:02, Vent. rate has increased BY 37 BPM Referred By: Sharda Smith Electronically Signed By:Javier Bah
--- NOTE | 2023-10-10 13:01 | ED.SOB ---
HPI - SOB/Dyspnea General Chief Complaint: Dyspnea Stated Complaint: SOB X2WKS,90% RA,FROM [facility] HOME PER EMS Time Seen by Provider: 10/10/23 12:07 Source: patient and old records reviewed Mode of arrival: EMS Limitations: other (poor historian) History of Present Illness HPI Narrative: 58 yo male with PMH of schizoaffective disorder, HOCM, COPD on 2L NC at night, JUDY, CAD, HTN, DM2, states he is vaccinated against COVID presents with 2 weeks of cough, increased shortness of breath and not feeling well. He has some mild abdominal discomfort as well. Sent in by long-term. Febrile on arrival to the ED. He is a poor historian. EMS notes 90% on RA MD elicited complaint: shortness of breath and cough Pertinent past history: COPD and asthma Onset (ago): week(s) (2) Context: recent illness Timing: constant Severity: moderate Exacerbating factors: exertion and coughing Relieving factors: oxygen, rest and bronchodilators Known history of: COPD Associated symptoms: fever, cough, wheezing and abdominal pain Treatment prior to arrival: oxygen Related Data Home Medications Medication Instructions Recorded Confirmed docusate sodium 100 mg capsule 1 cap PO BID 08/18/22 09/19/23 acetaminophen 500 mg tablet 500 mg PO Q6H PRN Pain 04/20/23 09/19/23 albuterol sulfate 90 mcg/actuation 2 puff inhalation Q4-6H PRN 04/20/23 09/19/23 aerosol inhaler (ProAir HFA) SHORTNESS OF BREATH/WHEEZING aluminum-mag hydroxide-simethicone 10 ml PO TID PRN Indigestion 04/20/23 09/19/23 200 mg-200 mg-20 mg/5 mL oral susp atorvastatin 20 mg tablet 20 mg PO DAILY 04/20/23 09/19/23 clozapine 100 mg tablet 200 mg PO BEDTIME 04/20/23 09/19/23 clozapine 25 mg tablet 75 mg PO BEDTIME 04/20/23 09/19/23 hydrochlorothiazide 12.5 mg capsule 12.5 mg PO DAILY 04/20/23 09/19/23 lorazepam 0.5 mg tablet 0.5 mg PO BEDTIME 04/20/23 09/19/23 lorazepam 1 mg tablet 1 mg PO BID@0800,1600 04/20/23 09/19/23 lurasidone 60 mg tablet 60 mg PO DAILY 04/20/23 09/19/23 metformin 500 mg tablet,extended 500 mg PO DAILY 04/20/23 09/19/23 release 24 hr polyethylene glycol 3350 17 17 g PO DAILY PRN Constipation 04/20/23 09/19/23 gram/dose oral powder (Miralax) trazodone 50 mg tablet 50 mg PO BEDTIME 04/20/23 09/19/23 nicotine 7 mg/24 hr daily 1 patch transdermal Q24H 09/19/23 09/19/23 transdermal patch Previous Rx's Medication Instructions Recorded alfuzosin 10 mg tablet,extended 10 mg PO BEDTIME 90 days #90 tabs 01/03/23 release 24 hr senna leaf extract 176 mg/5 mL 15 ml PO BEDTIME PRN constipation 01/23/23 oral syrup (senna) #237 mL aspirin 81 mg chewable tablet 1 tab PO DAILY 90 days #90 tabs 03/14/23 meloxicam 15 mg tablet 15 mg PO DAILY #14 tabs 06/08/23 testosterone 1.62 % (20.25 mg/1.25 2 packet transdermal DAILY #37.5 07/09/23 gram) transdermal gel packet grams (AndroGel) cholecalciferol (vitamin D3) 25 25 mcg PO DAILY #90 tabs 08/06/23 mcg (1,000 unit) tablet linagliptin 5 mg tablet (Tradjenta) 5 mg PO DAILY #30 tabs 08/14/23 metoprolol succinate 50 mg 50 mg PO BID #60 tabs 08/14/23 tablet,extended release 24 hr losartan 25 mg tablet 25 mg PO DAILY 90 days #90 tabs 08/20/23 Allergies Allergy/AdvReac Type Severity Reaction Status Date / Time lithium [Evan] Allergy Severe TOXICITY Verified 09/05/23 10:47 thiothixene Allergy Severe SWELLING Verified 09/05/23 10:47 barium sulfate Allergy Intermediate NAUSEA & Verified 09/05/23 10:47 [BARIUM SULFATE] VOMITING haloperidol Allergy Intermediate MUSCLE Verified 09/05/23 10:47 TENSION IN LEGS benztropine Allergy Unknown benztropine Verified 09/05/23 10:47 mesylate- unknown diphenhydramine Allergy Unknown urinary Verified 09/05/23 10:47 [From Benadryl] retention fluphenazine Allergy Unknown UNKNOWN Verified 09/05/23 10:47 gabapentin [From NEURONTIN] Allergy Unknown UNKNOWN Verified 09/05/23 10:47 prolixen Allergy Unknown Unknown Uncoded 09/05/23 10:47 Review of Systems Review of Systems: Constitutional : pos Fever pos Chills ENT/Mouth : No Hoarseness, No sore throat, No Rhinorrhea Eyes: No Redness, No Discharge, No Vision Changes Cardiovascular : No Chest Pain, positive SOB, positive Dyspnea on Exertion, No Edema Respiratory : positive Cough, pos Sputum, positive Wheezing, Gastrointestinal : No Nausea, No Vomiting, No Diarrhea, No abdominal Pain Genitourinary : No Dysuria, No Hematuria Musculoskeletal : No joint pain, No Myalgias Skin : No rash Neuro : pos Weakness, No Numbness, No Headache Psych : No anxiety, depression All other systems reviewed and are negative PMFSH Past Medical History Attestation statement: The following information was validated with the patient. Source: old records reviewed Onset Date is defined in the Problem List Problems that require an onset date and time if occurred within 24 hrs of arrival to the ED Aortic Dissection and Rupture; Neurologic impairment; Cardiopulmonary Arrest; Endotracheal Intubation; Insertion or Replacement of Mechanical Circulatory Assist Device Medical History COVID-19 Thought disorder Nocturnal hypoxemia Constipation COPD (chronic obstructive pulmonary disease) JUDY (obstructive sleep apnea) Smoker BPH (benign prostatic hyperplasia) Diabetes mellitus Obesity (BMI 30-39.9) Pure hypercholesterolemia Prolonged QT interval Essential hypertension HOCM (hypertrophic obstructive cardiomyopathy) Aggression Hypertension Coronary artery disease CHF (congestive heart failure) Cardiac arrhythmia Myocardial infarction Schizoaffective disorder Surgical History History of ankle surgery History of intestinal surgery History of transurethral resection of prostate Family History Family History Father Medical history unknown Mother Medical history unknown Sister Alive and well Social History Social History Household Members: Other Household Members Other:: longterm Housing: Other Housing Other:: longterm Do you presently have visiting nurse or other home services: Yes Alcohol intake: current Alcohol intake frequency: does not drink Comment: camera on. Patient Tobacco Use Status: Current everyday Tobacco user Cigarettes Per Day: 5 Smoked in Last 30 Days: Yes Second Hand Smoke Exposure: No Use of substances other than those prescribed or required for medical reasons: No Substance Use Type: Unknown Advance Directives: No Advance Directives Information Provided: No service: No Current occupational status: disabled Sexual orientation: Did not discuss. Cognitive needs: Yes Hearing needs: No Vision needs: Yes Physical Exam Vital Signs: Vital Signs: Last Vital Signs Temp 98.9 F 10/10/23 15:09 Pulse 103 H 10/10/23 15:09 Resp 31 H 10/10/23 15:09 BP 96/56 L 10/10/23 15:09 Pulse Ox 95 10/10/23 15:09 O2 Del Method Nasal Cannula 10/10/23 15:09 O2 Flow Rate 5 10/10/23 15:09 Oxygen Flow Rate 6 10/10/23 12:16 BMI result Body Mass Index 37.6 Appearance: Alert. Oriented X3. No acute distress. Flat affect Eyes: Pupils equal, round and reactive to light. ENT: Pharynx normal. Neck: Normal inspection. Neck supple. CVS: tachycardic heart rate and rhythm. Pulses normal. Respiratory: No respiratory distress. Breath sounds diminished R base, rhonchi noted, coarse lung sounds Abdomen: Soft and nontender. Skin: Skin warm and dry. Normal skin color. Normal skin turgor. Extremities: No lower extremity edema. No calf ttp Neuro: Oriented X 3. No motor deficit. No sensory deficit. Course Course Course Narrative: + flu A will need admission ill patient start on tamiflu Medications Administered Generic Name Dose Route Start Last Admin Trade Name Freq PRN Reason Stop Dose Admin Azithromycin 500 mg/ Sodium 250 mls @ 125 mls/hr 10/10/23 14:00 10/10/23 14:19 Chloride IV 10/10/23 15:59 125 mls/hr ONCE ONE Administration Sodium Chloride 500 mls @ 500 mls/hr 10/10/23 14:45 10/10/23 15:07 Ns IV 10/10/23 15:44 500 mls/hr .Q1H OZZY Administration Albumin Human 100 mls @ 100 mls/hr 10/10/23 14:42 10/10/23 15:05 Kedbumin 25 % IV 10/10/23 15:41 100 mls/hr ONCE ONE Administration Discontinued Medications Generic Name Dose Route Start Last Admin Trade Name Chelsy PRN Reason Stop Dose Admin Acetaminophen 650 mg 10/10/23 12:29 10/10/23 13:09 Acetaminophen 325 Mg Tablet PO 10/10/23 12:30 650 mg ONCE ONE Administration Albuterol Sulfate 7.5 mg/ 10 mg 10/10/23 12:57 10/10/23 13:01 Albuterol Sulfate 2.5 mg INHALE 10/10/23 12:58 10 mg ONCE ONE Administration Ceftriaxone Sodium 1 gm/ 50 mls @ 100 mls/hr 10/10/23 12:29 10/10/23 13:33 Sodium Chloride IV 10/10/23 12:58 Infused ONCE ONE Infusion Methylprednisolone Sodium Succinate 60 mg 10/10/23 12:38 10/10/23 13:06 Methylprednisolone Sod Succ 125 Mg/2 Ml Vial IVPUSH 10/10/23 12:39 60 mg ONCE ONE Administration Oseltamivir Phosphate 75 mg 10/10/23 13:42 10/10/23 13:50 Oseltamivir Phosphate 75 Mg Capsule PO 10/10/23 13:43 75 mg ONCE ONE Administration Medical Decision Making Medical Decision Making MDM Narrative: 58 yo male with PMH of schizoaffective disorder, HOCM, COPD on 2L NC at night, JUDY, CAD, HTN, DM2 here with c/o worsening breathing fever came in with sats 90% on RA, tachycardic, febrile at this time viral panel, CXR, cultures, lactic acid, IV steroids/nebs, empiric antibiotics ordered - possible viral syndrome, pneumonia, bronchitis. Likely admit. Differential Diagnosis Differential Diagnoses: The differential diagnosis associated with the presentation includes viral syndrome, pneumonia, bronchitis Admission/Observation Consideration of admission/observation: Escalation of care including admission/observation considered admit given new O2 use, work of breath Consult Healthcare Provider Management of the patient was discussed with: Hospitalist Lab Data MDM Lab Attestation statement: I reviewed the patient's lab results. 10/10/23 12:50 10/10/23 12:50 Labs: Lab Results 10/10/23 10/10/23 10/10/23 Range/Units 12:49 12:50 12:55 WBC 7.8 (4.8-10.8) X10*3/uL RBC 4.58 L (4.60-5.80) X10*6/uL Hgb 12.3 L (14.0-18.0) g/dl Hct 38.2 L (42.0-52.0) % MCV 83.4 (80.0-98.0) fL MCH 26.9 L (27.0-33.0) pg MCHC 32.2 (31.0-36.0) g/dl RDW 16.1 H (11.0-16.0) % Plt Count 135 L D (160-400) X10*3/uL MPV 12.1 (9.4-12.4) fL Immature Gran % (Auto) 0.4 (0.0-0.4) % Neut % (Auto) 89.5 H (45-73) % Lymph % (Auto) 2.7 L (20-40) % [place] % (Auto) 7.0 (2-11) % Eos % (Auto) 0.1 (0-4) % Baso % (Auto) 0.3 (0-2) % Lymph # (Auto) 0.2 L (1.2-4.9) X10*3/uL [place] # (Auto) 0.5 (0.1-1.2) X10*3/uL Eos # (Auto) 0.0 (0.0-0.4) X10*3/uL Baso # (Auto) 0.0 (0.0-0.2) X10*3/uL Abs Immat Gran (auto) 0.03 (0.00-0.03) X10*3/uL Absolute Neuts (auto) 6.9 (2.0-8.3) x10*3/uL Absolute Nucleated RBC 0.000 (0.0-0.012) X10*3/uL Nucleated RBC % (auto) 0.0 (0.0-0.2) /100WBC PT 12.9 (11.1-13.3) SEC INR 1.1 (0.9-1.1) VBG pH 7.46 H (7.32-7.43) VBG pCO2 34 mmHg VBG pO2 61 mmHg VBG HCO3 24 (22-26) mmol/L VBG O2 Saturation 89.0 % VBG Base Excess 1.5 mmol/L Sodium 147 H (135-145) mmol/L Potassium 3.7 (3.3-5.1) mmol/L Chloride 112 H (96-108) mmol/L Carbon Dioxide 26 (22-29) mmol/L Anion Gap 13 (12-20) BUN 17 H (9-16) mg/dL Creatinine 1.41 H (0.5-1.4) mg/dL Estim Creat Clear Calc 68.5 Estimated GFR 51 Random Glucose 148 H (60-115) mg/dL Lactic Acid 1.7 (0.5-2.0) mmol/L Calcium 9.7 (8.4-10.2) mg/dL Total Bilirubin 0.5 (0.0-1.0) mg/dL Direct Bilirubin 0.2 (0.0-0.5) mg/dL AST 16 (5-37) U/L ALT 18 (0-40) U/L Alkaline Phosphatase 67 (39-117) U/L Troponin I High Sens 28.0 (<3.5-35.0) ng/L B-Natriuretic Peptide 1129 H (<100) pg/mL Total Protein 6.8 (6.5-8.0) g/dL Albumin 3.9 (3.5-5.0) g/dL Procalcitonin 0.08 ng/mL Influenza Type A (PCR) POSITIVE A (Negative) Influenza Type B (PCR) NEGATIVE (Negative) RSV RNA Qual (PCR) NEGATIVE (Negative) SARS-CoV-2 RNA (RT-PCR) NEGATIVE (Negative) Independent Interpretation I performed an independent interpretation of an: EKG and Plain X-Ray Interpretation: Rate: 110 Rhythm: sinus tachycardia [place]: normal LVH Normal P waves. Normal LISA. Normal QRS complex. ST T wave : no MOHINDER LVH with strain pattern in lateral leads and ST depression and inversions in lateral leads qTC: 487 prior studies: no acute changes The study has been interpreted contemporaneously by me. . Radiology Impression Discussion of test interpretation with radiology: I have reviewed the radiologist's reading. Independent Historian Clinical information obtained from an independent historian. History obtained from or confirmed by: EMS External Record Review External record reviewed: Inpatient record Discharge Plan Discharge Clinical Impression: Acute febrile illness, Influenza A, Pneumonitis, Hypoxia Patient Disposition: Admitted As Inpatient Prescriptions: No Action alfuzosin 10 mg tablet extended release 24 hr 10 mg PO BEDTIME 90 Days Qty: 90 1RF Rx Instructions: Take before bedtime senna leaf extract [senna] 176 mg/5 mL syrup 15 ml PO BEDTIME PRN (Reason: constipation) Qty: 237 11RF aspirin 81 mg tablet,chewable 1 tab PO DAILY 90 Days Qty: 90 1RF testosterone [AndroGel] 1.62 % (20.25 mg/1.25 gram) gel in packet 2 packet TRANSDERMAL DAILY Qty: 37.5 1RF Rx Instructions: apply 20.25 mg /1 packet to max area of EACH upper arm and shoulder cholecalciferol (vitamin D3) 25 mcg (1,000 unit) tablet 25 mcg PO DAILY Qty: 90 0RF Tradjenta 5 mg tablet 5 mg PO DAILY Qty: 30 2RF metoprolol succinate 50 mg tablet extended release 24 hr 50 mg PO BID Qty: 60 2RF losartan 25 mg tablet 25 mg PO DAILY 90 Days Qty: 90 1RF docusate sodium 100 mg capsule 1 cap PO BID atorvastatin 20 mg tablet 20 mg PO DAILY trazodone 50 mg tablet 50 mg PO BEDTIME clozapine 100 mg tablet 200 mg PO BEDTIME hydrochlorothiazide 12.5 mg capsule 12.5 mg PO DAILY clozapine 25 mg tablet 75 mg PO BEDTIME lorazepam 1 mg tablet 1 mg PO BID@0800,1600 metformin 500 mg tablet extended release 24 hr 500 mg PO DAILY lurasidone 60 mg tablet 60 mg PO DAILY lorazepam 0.5 mg Tablet 0.5 mg PO BEDTIME polyethylene glycol 3350 [Miralax] 17 gram/dose Powder 17 g PO DAILY PRN (Reason: Constipation) alum-mag hydroxide-simeth [Mylanta] 200-200-20 mg/5 mL Suspension 10 ml PO TID PRN (Reason: Indigestion) Rx Instructions: administer between meals and at bedtime albuterol sulfate [ProAir HFA] 90 mcg/actuation Hfa Aerosol Inhaler 2 puff INHALATION Q4-6H PRN (Reason: SHORTNESS OF BREATH/WHEEZING) acetaminophen 500 mg Tablet 500 mg PO Q6H PRN (Reason: Pain) nicotine 7 mg/24 hr Patch 24 Hour 1 patch TRANSDERMAL Q24H meloxicam 15 mg tablet 15 mg PO DAILY Qty: 14 0RF
[2023-10-10 13:34] LABS: Alanine Aminotransferase 18 U/L (0-40); Albumin Level 3.9 g/dL (3.5-5.0); Alkaline Phosphatase 67 U/L (39-117); Anion Gap 13 (12-20); Aspartate Amino Transferase 16 U/L (5-37); Bilirubin Direct 0.2 mg/dL (0.0-0.5); Bilirubin Total 0.5 mg/dL (0.0-1.0); Blood Urea Nitrogen 17 mg/dL (9-16); Calcium 9.7 mg/dL (8.4-10.2); Carbon Dioxide 26 mmol/L (22-29); Chloride 112 mmol/L (96-108); Creatinine Clr Calc Pharmacy 68.5; Estimated Glomerular Filt Rate 51; Glucose Random 148 mg/dL (60-115); Potassium 3.7 mmol/L (3.3-5.1); Sodium 147 mmol/L (135-145); Total Protein 6.8 g/dL (6.5-8.0)
[2023-10-10 13:49] LABS: Procalcitonin 0.08 ng/mL
--- NOTE | 2023-10-10 15:54 | PC.NURSE ---
Pt presents SOB, diaphoretic and febrile. Reports SOB x 2 weeks with dry cough. Rhonchi to left lower lobe and dim to right low lobe. IV established and pt medicated as charted. Pt now with less work of breathing HR and temp has trended down as charted. Albumin infusing at this time as BP soft. Pt remains pleasant at this time. Awaiting urine specimen
--- NOTE | 2023-10-10 16:23 | PHA.MEDREC ---
Pharmacy Consult ? Medication Reconciliation Pharmacy has completed the medication reconciliation. Pt from [facility]. Called to confirm meds with med list faxed to us. Confirmed clozaril 275 mg Bedtime.
--- NOTE | 2023-10-10 16:29 | PM.IMHP ---
History of Present Illness Date of Service: 10/10/23 Chief Complaint: cough, fever 58 yo male correction resident with PMH of schizoaffective disorder, HOCM, COPD on 2L NC at night, JUDY, CAD, HTN, and DM2 who was sent in with 2-3 weeks of worsening cough, dyspnea, and wheezing. No chest pain. No leg edema. He was found to be febrile to 102.2 with tachycardia to 117 and tachypnea 24/min. He was noted to be hypoxic with SaO2 90% on RA and started on oxygen. BNP markedly elevated to 1128 and CXR showed diffuse increased bilateral parahilar increased interstitial markings suggestive of interstitial pneumonitis or edema. LA 1.7, PCT 0.08. Influenza A PCR positive. In the ED he was given ceftriaxone, azithromycin, oseltamivir, methylprednisolone, and multiple nebulizer treatments. He also got IV fluid and albumin for soft BP of 91/56. Review of Systems Review of Systems: Yes all other systems are reviewed and are negative [facility] Medical History COVID-19 Thought disorder Nocturnal hypoxemia Constipation COPD (chronic obstructive pulmonary disease) JUDY (obstructive sleep apnea) Smoker BPH (benign prostatic hyperplasia) Diabetes mellitus Obesity (BMI 30-39.9) Pure hypercholesterolemia Prolonged QT interval Essential hypertension HOCM (hypertrophic obstructive cardiomyopathy) Aggression Hypertension Coronary artery disease CHF (congestive heart failure) Cardiac arrhythmia Myocardial infarction Schizoaffective disorder Family History Father Medical history unknown Mother Medical history unknown Sister Alive and well Surgical History History of ankle surgery History of intestinal surgery History of transurethral resection of prostate Social History Household Members: Other Household Members Other:: half-way Housing: Other Housing Other:: half-way Do you presently have visiting nurse or other home services: Yes Alcohol intake: current Alcohol intake frequency: does not drink Comment: camera on. Patient Tobacco Use Status: Current everyday Tobacco user Cigarettes Per Day: 5 Smoked in Last 30 Days: Yes Second Hand Smoke Exposure: No Use of substances other than those prescribed or required for medical reasons: No Substance Use Type: Unknown Advance Directives: No Advance Directives Information Provided: No service: No Current occupational status: disabled Sexual orientation: Did not discuss. Cognitive needs: Yes Hearing needs: No Vision needs: Yes Meds Allergies Allergy/AdvReac Type Severity Reaction Status Date / Time lithium [[place]] Allergy Severe TOXICITY Verified 09/05/23 10:47 thiothixene Allergy Severe SWELLING Verified 09/05/23 10:47 barium sulfate Allergy Intermediate NAUSEA & Verified 09/05/23 10:47 [BARIUM SULFATE] VOMITING haloperidol Allergy Intermediate MUSCLE Verified 09/05/23 10:47 TENSION IN LEGS benztropine Allergy Unknown benztropine Verified 09/05/23 10:47 mesylate- unknown diphenhydramine Allergy Unknown urinary Verified 09/05/23 10:47 [From Benadryl] retention fluphenazine Allergy Unknown UNKNOWN Verified 09/05/23 10:47 gabapentin [From NEURONTIN] Allergy Unknown UNKNOWN Verified 09/05/23 10:47 prolixen Allergy Unknown Unknown Uncoded 09/05/23 10:47 Active Medications: Current Medications Al Hydroxide/Mg Hydroxide (Magnesium Hydrox/Alum Hydrox 30 Ml Oral.Susp) 10 ml PO TID PRN PRN Reason: indegestion Albuterol Sulfate (Albuterol Sulfate (0.083%) 2.5 Mg/3 Ml Vial.Neb) 2.5 mg INHALE Q2H PRN PRN Reason: Shortness of Breath/Wheezing Albuterol/Ipratropium (Albuterol/Iprat 2.5/0.5mg 3 Ml Ampul.Neb) 3 ml INHALE RQ4H WHILE AWAKE [facility] Last Admin: 10/10/23 16:10 Dose: 3 ml Aspirin (Aspirin 81 Mg Tab.Chew) 81 mg PO DAILY [facility] Atorvastatin Calcium (Atorvastatin Calcium 20 Mg Tablet) 20 mg PO BEDTIME [facility] Clozapine (Clozapine 100 Mg Tablet) 200 mg PO BEDTIME [facility] Clozapine (Clozapine 25 Mg Tablet) 75 mg PO BEDTIME [facility] Dextrose (Dextrose 50 % 25 Gm/50 Ml Syringe) 25 gm IVPUSH Q15M PRN; Protocol PRN Reason: per Hypoglycemia Standing Ord. Docusate Sodium (Docusate Sodium 100 Mg Capsule) 100 mg PO BID [facility] Glucose (Glucose Gel 15 Gm Gel..Gram.) 15 gm PO Q15M PRN; Protocol PRN Reason: per Hypoglycemia Standing Ord. Insulin Human Lispro (Insulin Lispro 100 Unit/Ml 3 Ml Vial) 0 unit SUBCUT QIDACHS [facility]; Protocol Lorazepam (Lorazepam 0.5 Mg Tablet) 0.5 mg PO BEDTIME [facility] Lorazepam (Lorazepam 1 Mg Tablet) 1 mg PO BID@0800,1600 [facility] Methylprednisolone Sodium Succinate (Methylprednisolone Sod Succ 40 Mg/Ml Vial) 40 mg IVPUSH Q12H [facility] Non-Formulary Medication (Testosterone [Androgel]) 2 packet TRANSDERMA DAILY [facility] Non-Formulary Medication (Alfuzosin) 10 mg PO BEDTIME [facility] Non-Formulary Medication (Lurasidone) 60 mg PO BEDTIME [facility] Oseltamivir Phosphate (Oseltamivir Phosphate 75 Mg Capsule) 75 mg PO Q12H [facility] Stop: 10/15/23 09:01 Polyethylene Glycol (Polyethylene Glycol 3350 17 Gm Powd.Pack) 17 gm PO DAILY PRN PRN Reason: Constipation Senna (Senna Golva Extract Oral Syrup 15 Ml Syrup) 15 ml PO BEDTIME [facility] Sodium Chloride (0.9 % Sodium Chloride Flush 3 Ml Syringe) 3 ml IVFLUSH QSHIFT [facility] Trazodone HCl (Trazodone Hcl 50 Mg Tablet) 50 mg PO BEDTIME [facility] Vitamin D (Cholecalciferol (Vitamin D3) 25 Mcg Tablet) 25 mcg PO DAILY [facility] Home Medications Medication Instructions Recorded Confirmed Last Taken Type docusate sodium 100 mg capsule 1 cap PO BID 08/18/22 10/10/23 10/09/23 History acetaminophen 500 mg tablet 1,000 mg PO Q6H PRN Pain 04/20/23 10/10/23 Unknown History atorvastatin 20 mg tablet 20 mg PO BEDTIME 04/20/23 10/10/23 10/09/23 History clozapine 100 mg tablet 200 mg PO BEDTIME 04/20/23 10/10/23 10/09/23 History clozapine 25 mg tablet 75 mg PO BEDTIME 04/20/23 10/10/23 10/09/23 History hydrochlorothiazide 12.5 mg capsule 12.5 mg PO DAILY 04/20/23 10/10/23 10/09/23 History lorazepam 0.5 mg tablet 0.5 mg PO BEDTIME 04/20/23 10/10/23 10/09/23 History lorazepam 1 mg tablet 1 mg PO BID@0800,1600 04/20/23 10/10/2310/09/24 History lurasidone 60 mg tablet 60 mg PO BEDTIME 04/20/23 10/10/23 10/09/23 History polyethylene glycol 3350 17 17 g PO DAILY PRN Constipation 04/20/23 10/10/23 Unknown History gram/dose oral powder (Miralax) trazodone 50 mg tablet 50 mg PO BEDTIME 04/20/23 10/10/23 10/09/23 History albuterol sulfate 90 mcg/actuation 2 puff inhalation Q6H PRN 10/10/23 10/10/23 Unknown History aerosol inhaler Shortness Of Breath Or Wheezing aluminum-mag hydroxide-simethicone 10 ml PO TID PRN indegestion 10/10/23 10/10/23 Unknown History 200 mg-200 mg-20 mg/5 mL oral susp aspirin 81 mg tablet,delayed 81 mg PO DAILY 10/10/23 10/10/23 10/09/23 History release meloxicam 15 mg tablet 15 mg PO DAILY PRN Pain 10/10/23 10/10/23 Unknown History senna leaf extract 176 mg/5 mL 15 ml PO BEDTIME constipation 10/10/23 10/10/23 10/09/23 History oral syrup (senna) testosterone 1.62 % (20.25 mg/1.25 2 packet transdermal DAILY 10/10/23 10/10/23 10/09/23 History gram) transdermal gel packet (AndroGel) Physical Exam Vital Signs and Narrative: Vital Signs: Last Vital Signs Temp 98.9 F 10/10/23 15:09 Pulse 99 10/10/23 16:13 Resp 26 H 10/10/23 16:13 BP 96/56 L 10/10/23 15:09 Pulse Ox 95 10/10/23 15:09 O2 Del Method Nasal Cannula 10/10/23 15:09 O2 Flow Rate 5 10/10/23 15:09 Oxygen Flow Rate 6 10/10/23 12:16 BMI result Body Mass Index 37.6 Gen: in mild resp distress HEENT: sclera anicteric, moist mucus membranes Neck: supple Lungs: diminished with bilateral exp wheezes, tachypneic Heart: regular, tacycardic, no murmurs Abd: soft, non-tender, non-distended Ext: no edema Skin: warm/well-perfused Neuro: alert and oriented x3, no focal findings Psych: appropriate affect Results Labs 10/10/23 12:50 10/10/23 12:50 Labs: Laboratory Results - last 24 hr 10/10/23 10/10/23 10/10/23 12:49 12:50 12:52 MCV 83.4 MCH 26.9 L MCHC 32.2 RDW 16.1 H Plt Count 135 L D MPV 12.1 Immature Gran % (Auto) 0.4 Neut % (Auto) 89.5 H Lymph % (Auto) 2.7 L [place] % (Auto) 7.0 Eos % (Auto) 0.1 Baso % (Auto) 0.3 Lymph # (Auto) 0.2 L [place] # (Auto) 0.5 Eos # (Auto) 0.0 Baso # (Auto) 0.0 Abs Immat Gran (auto) 0.03 Absolute Neuts (auto) 6.9 Absolute Nucleated RBC 0.000 Nucleated RBC % (auto) 0.0 PT 12.9 INR 1.1 VBG pH VBG pCO2 VBG pO2 VBG HCO3 VBG O2 Saturation VBG Base Excess Anion Gap 13 Estim Creat Clear Calc 68.5 Estimated GFR 51 Random Glucose 148 H Lactic Acid 1.7 Calcium 9.7 Total Bilirubin 0.5 Direct Bilirubin 0.2 AST 16 ALT 18 Alkaline Phosphatase 67 Total Creatine Kinase 157 B-Natriuretic Peptide 1129 H Total Protein 6.8 Albumin 3.9 Procalcitonin 0.08 Influenza Type A (PCR) POSITIVE A Influenza Type B (PCR) NEGATIVE RSV RNA Qual (PCR) NEGATIVE SARS-CoV-2 RNA (RT-PCR) NEGATIVE 10/10/23 12:55 MCV MCH MCHC RDW Plt Count MPV Immature Gran % (Auto) Neut % (Auto) Lymph % (Auto) [place] % (Auto) Eos % (Auto) Baso % (Auto) Lymph # (Auto) [place] # (Auto) Eos # (Auto) Baso # (Auto) Abs Immat Gran (auto) Absolute Neuts (auto) Absolute Nucleated RBC Nucleated RBC % (auto) PT INR VBG pH 7.46 H VBG pCO2 34 VBG pO2 61 VBG HCO3 24 VBG O2 Saturation 89.0 VBG Base Excess 1.5 Anion Gap Estim Creat Clear Calc Estimated GFR Random Glucose Lactic Acid Calcium Total Bilirubin Direct Bilirubin AST ALT Alkaline Phosphatase Total Creatine Kinase B-Natriuretic Peptide Total Protein Albumin Procalcitonin Influenza Type A (PCR) Influenza Type B (PCR) RSV RNA Qual (PCR) SARS-CoV-2 RNA (RT-PCR) Imaging Radiologist's Impressions: Impressions Chest X-Ray 10/10/23 13:50 IMPRESSION: Diffuse increased bilateral parahilar increased interstitial markings suggestive of interstitial pneumonitis or edema. Assessment and Plan (1) Hypoxia: Status: Acute (2) Influenza A: Status: Acute Plan 58 yo male correction resident with PMH of schizoaffective disorder, HOCM, COPD on 2L NC at night, JUDY, CAD, HTN, and DM2 presenting with 2-3 weeks of dyspnea, cough, and wheeze and found to have hypoxia, fever, tachycardia, and tachypnea, testing positive for influenza A. AHRF due to COPD exac due to flu A - admit to telemetry, continuous SaO2, wean O2 as tolerated, give oseltamivir, give methylprednisolone, standing/prn nebs - antibacterial coverage with ceftriaxone + doxycycline given duration of symptoms putting him at risk of superimposed pneumonia possible pulmonary edema vs interstitial pneumonitis - give 1 dose furosemide, recheck BNP, check TTE hx HTN - hold HCTZ, losartan, metoprolol succinate given soft BP CAD - continue ASA, atorvastatin; hold b-thee + ARB as above DM2 - lydia-dose lispro, hold linagliptin schizoaffective disorder - continue clozapine, VTE prophylaxis - LMWH dispo -- eventual return to correction code status - full I anticipate that the patient will stay at least 2 midnights as an inpatient in the hospital due to the above reasons. It is neither reasonable nor safe to care for them in a less acute setting. Quality Stroke Does the patient have a stroke diagnosis?: No VTE Prior VTE?: No VTE Risk Level:: Medical - moderate - high VTE Device Contraindication: N/A - Device Ordered VTE Drug Contraindication: N/A - Med Ordered
[2023-10-11] VITALS (10 sets, daily range): BP systolic 114–148; BP diastolic 73–92; PULSE 87–105; RESP 18–24; TEMP 36.6–37; O2SAT 94–98
--- NOTE | 2023-10-11 00:50 | PC.NURSE ---
late entry- this rn assumed care of pt @ 1900. pt calm and cooperative with care. pt refused flomax states it makes my bladder explode this rn made dr mcmillan aware. pt awaiting bed assignment
--- NOTE | 2023-10-11 03:11 | MHC.EDTECH ---
Hourly rounds and vitals completed,patient urinated 650MLS in urinal, patient is resting at this time and call dickson within reach.
--- NOTE | 2023-10-11 05:12 | PC.NURSE ---
pt medicated according to dec. lights dimmed to promote rest. pt calm and cooperative with care
[2023-10-11 05:24] LABS: Anion Gap 17 (12-20); Blood Urea Nitrogen 30 mg/dL (9-16); Calcium 9.2 mg/dL (8.4-10.2); Carbon Dioxide 24 mmol/L (22-29); Chloride 106 mmol/L (96-108); Creatinine Clr Calc Pharmacy 61.9; Estimated Glomerular Filt Rate 46; Glucose Random 189 mg/dL (60-115); Potassium 4.1 mmol/L (3.3-5.1); Sodium 143 mmol/L (135-145)
--- NOTE | 2023-10-11 05:56 | MHC.EDTECH ---
Hourly rounds and vitals completed,patient urinated 200MLS in urinal
--- NOTE | 2023-10-11 13:46 | HO.PM.IMPN ---
Subjective Subjective Date of Service: 10/11/23 Interval History: fever resolved dyspnea improved now on 3L O2 via [place] Review of Systems Review of Systems: Yes all other systems are reviewed and are negative Physical Exam Vital Signs: Vital Signs: Last Vital Signs Temp 98.6 F 10/11/23 05:56 Pulse 101 H 10/11/23 11:20 Resp 18 10/11/23 11:20 BP 114/77 10/11/23 07:48 Pulse Ox 94 10/11/23 07:48 O2 Del Method Nasal Cannula 10/11/23 07:48 O2 Flow Rate 3 10/11/23 07:48 Oxygen Flow Rate 6 10/10/23 12:16 BMI result Body Mass Index 37.6 Gen: NAD HEENT: sclera anicteric, moist mucus membranes Neck: supple Lungs: diminished with scattered exp wheezes Heart: regular, tacycardic, no murmurs Abd: soft, non-tender, non-distended Ext: no edema Skin: warm/well-perfused Neuro: alert and oriented x3, no focal findings Psych: appropriate affect Objective Data Active Medications Acetaminophen (Acetaminophen 325 Mg Tablet) 650 mg PO Q6H PRN PRN Reason: Pain, Mild (Pain Scale 1-3) Al Hydroxide/Mg Hydroxide (Magnesium Hydrox/Alum Hydrox 30 Ml Oral.Susp) 10 ml PO TID PRN PRN Reason: indegestion Albuterol Sulfate (Albuterol Sulfate (0.083%) 2.5 Mg/3 Ml Vial.Neb) 2.5 mg INHALE Q2H PRN PRN Reason: Shortness of Breath/Wheezing Albuterol/Ipratropium (Albuterol/Iprat 2.5/0.5mg 3 Ml Ampul.Neb) 3 ml INHALE RQ4H WHILE AWAKE [facility] Last Admin: 10/11/23 11:18 Dose: 3 ml Documented By: LISA Aspirin (Aspirin Enteric Coated 81 Mg Tablet.) 81 mg PO DAILY [facility] Last Admin: 10/11/23 07:46 Dose: 81 mg Documented By: SEVEN Aspirin (Aspirin Enteric Coated 81 Mg Tablet.) 81 mg PO DAILY [facility] Last Admin: 10/11/23 07:47 Dose: Not Given Documented By: SEVEN Non-Admin Reason: See Note Atorvastatin Calcium (Atorvastatin Calcium 20 Mg Tablet) 20 mg PO BEDTIME [facility] Last Admin: 10/10/23 23:00 Dose: 20 mg Documented By: CHEYANNE Clozapine (Clozapine 100 Mg Tablet) 200 mg PO BEDTIME [facility] Last Admin: 10/10/23 23:01 Dose: 200 mg Documented By: CHEYANNE Clozapine (Clozapine 25 Mg Tablet) 75 mg PO BEDTIME [facility] Last Admin: 10/10/23 23:00 Dose: 75 mg Documented By: CHEYANNE Dextrose (Dextrose 50 % 25 Gm/50 Ml Syringe) 25 gm IVPUSH Q15M PRN; Protocol PRN Reason: per Hypoglycemia Standing Ord. Docusate Sodium (Docusate Sodium 100 Mg Capsule) 100 mg PO BID [facility] Last Admin: 10/11/23 07:40 Dose: 100 mg Documented By: SEVEN Enoxaparin Sodium (Enoxaparin Sodium 40 Mg/0.4 Ml Syringe) 40 mg SUBCUT Q24H [facility] Last Admin: 10/10/23 17:30 Dose: 40 mg Documented By: GERTRUDIS Glucose (Glucose Gel 15 Gm Gel..Gram.) 15 gm PO Q15M PRN; Protocol PRN Reason: per Hypoglycemia Standing Ord. Ceftriaxone Sodium 1 gm/ (Sodium Chloride) 50 mls @ 100 mls/hr IV Q24H [facility] Last Admin: 10/11/23 10:46 Dose: 100 mls/hr Documented By: SEVEN Doxycycline Hyclate 100 mg/ (Sodium Chloride) 250 mls @ 166.67 mls/hr IV Q12H [facility] Last Admin: 10/11/23 05:06 Dose: 166.67 mls/hr Documented By: CHEYANNE Insulin Human Lispro (Insulin Lispro 100 Unit/Ml 3 Ml Vial) 0 unit SUBCUT QIDACHS [facility]; Protocol Last Admin: 10/11/23 13:29 Dose: 2 unit Documented By: SEVEN Lorazepam (Lorazepam 0.5 Mg Tablet) 0.5 mg PO BEDTIME [facility] Last Admin: 10/10/23 23:00 Dose: 0.5 mg Documented By: CHEYANNE Lorazepam (Lorazepam 1 Mg Tablet) 1 mg PO BID@0800,1600 [facility] Last Admin: 10/11/23 07:40 Dose: 1 mg Documented By: SEVEN Lurasidone HCl (Lurasidone Hcl 40 Mg Tablet) 60 mg PO BEDTIME [facility] Last Admin: 10/10/23 23:01 Dose: 60 mg Documented By: CHEYANNE Methylprednisolone Sodium Succinate (Methylprednisolone Sod Succ 40 Mg/Ml Vial) 40 mg IVPUSH Q12H [facility] Last Admin: 10/11/23 13:29 Dose: 40 mg Documented By: SEVEN Non-Formulary Medication (Testosterone [Androgel]) 2 packet TRANSDERMA DAILY [facility] Ondansetron HCl (Ondansetron Hcl 4 Mg/2 Ml Vial) 4 mg IVPUSH Q8H PRN PRN Reason: Nausea and Vomiting Oseltamivir Phosphate (Oseltamivir Phosphate 75 Mg Capsule) 75 mg PO Q12H [facility] Stop: 10/15/23 09:01 Last Admin: 10/11/23 07:40 Dose: 75 mg Documented By: SEVEN Polyethylene Glycol (Polyethylene Glycol 3350 17 Gm Powd.Pack) 17 gm PO DAILY PRN PRN Reason: Constipation Senna (Senna [place] Extract Oral Syrup 15 Ml Syrup) 15 ml PO BEDTIME [facility] Last Admin: 10/10/23 23:01 Dose: 15 ml Documented By: CHEYANNE Sodium Chloride (0.9 % Sodium Chloride Flush 3 Ml Syringe) 3 ml IVFLUSH QSHIFT [facility] Last Admin: 10/11/23 07:42 Dose: 3 ml Documented By: SEVEN Tamsulosin HCl (Tamsulosin Hcl 0.4 Mg Capsule) 0.4 mg PO BEDTIME [facility] Last Admin: 10/11/23 00:51 Dose: Not Given Documented By: CHEYANNE Non-Admin Reason: Patient Refused Trazodone HCl (Trazodone Hcl 50 Mg Tablet) 50 mg PO BEDTIME [facility] Last Admin: 10/10/23 23:00 Dose: 50 mg Documented By: CHEYANNE Vitamin D (Cholecalciferol (Vitamin D3) 25 Mcg Tablet) 25 mcg PO DAILY [facility] Last Admin: 10/11/23 07:46 Dose: 25 mcg Documented By: SEVEN Labs 10/11/23 05:03 10/11/23 05:03 Labs: Laboratory Results - last 24 hr 10/10/23 10/10/23 10/10/23 12:50 12:52 17:05 MCV MCH MCHC RDW Plt Count MPV Absolute Nucleated RBC Nucleated RBC % (auto) VBG pH VBG pCO2 VBG pO2 VBG HCO3 VBG O2 Saturation VBG Base Excess Anion Gap Estim Creat Clear Calc Estimated GFR POC Glucose 200 H Random Glucose Calcium Total Creatine Kinase 157 B-Natriuretic Peptide Procalcitonin 0.08 Urine Color Urine Appearance Urine pH Ur Specific [place] Urine Protein Urine Glucose (UA) Urine Ketones Urine Blood Urine Nitrite Ur Leukocyte Esterase 10/10/23 10/10/23 10/11/23 19:20 22:17 05:03 MCV 84.2 MCH 26.9 L MCHC 31.9 RDW 16.3 H Plt Count 109 L MPV 11.9 Absolute Nucleated RBC 0.000 Nucleated RBC % (auto) 0.0 VBG pH VBG pCO2 VBG pO2 VBG HCO3 VBG O2 Saturation VBG Base Excess Anion Gap 17 Estim Creat Clear Calc 61.9 Estimated GFR 46 POC Glucose 311 H Random Glucose 189 H Calcium 9.2 Total Creatine Kinase B-Natriuretic Peptide Procalcitonin Urine Color Yellow Urine Appearance Clear Urine pH 5.5 Ur Specific [place] 1.015 Urine Protein Trace Urine Glucose (UA) Negative Urine Ketones Negative Urine Blood Negative Urine Nitrite Negative Ur Leukocyte Esterase Negative 10/11/23 10/11/23 10/11/23 05:09 07:12 08:48 MCV MCH MCHC RDW Plt Count MPV Absolute Nucleated RBC Nucleated RBC % (auto) VBG pH 7.43 VBG pCO2 39 VBG pO2 59 VBG HCO3 26 VBG O2 Saturation 91.0 VBG Base Excess 2.4 Anion Gap Estim Creat Clear Calc Estimated GFR POC Glucose 202 H Random Glucose Calcium Total Creatine Kinase B-Natriuretic Peptide 807 H Procalcitonin Urine Color Urine Appearance Urine pH Ur Specific [place] Urine Protein Urine Glucose (UA) Urine Ketones Urine Blood Urine Nitrite Ur Leukocyte Esterase 10/11/23 13:16 MCV MCH MCHC RDW Plt Count MPV Absolute Nucleated RBC Nucleated RBC % (auto) VBG pH VBG pCO2 VBG pO2 VBG HCO3 VBG O2 Saturation VBG Base Excess Anion Gap Estim Creat Clear Calc Estimated GFR POC Glucose 194 H Random Glucose Calcium Total Creatine Kinase B-Natriuretic Peptide Procalcitonin Urine Color Urine Appearance Urine pH Ur Specific [place] Urine Protein Urine Glucose (UA) Urine Ketones Urine Blood Urine Nitrite Ur Leukocyte Esterase Assessment and Plan (1) Hypoxia: Status: Acute Plan d2 58yo M intermediate resident with PMH of schizoaffective disorder, HOCM, COPD on 2L NC at night, JUDY, CAD, HTN, and DM2 presenting with 2-3 weeks of dyspnea, cough, and wheeze admitted for hyoxia + COPD exacerbation due to influenza A AHRF due to COPD exac due to flu A - wean O2 as tolerated - oseltamivir /-10/15 - methylprednisolone 10/11- - standing/prn nebs - antibacterial coverage with ceftriaxone + doxycycline given duration of symptoms putting him at risk of superimposed pneumonia though PCT is low; follow BCx HOCM - TTE: - Normal left ventricular cavity size. There is severely increased left ventricular wall thickness. The left ventricular systolic function is hyperdynamic. The visually estimated ejection fraction is >70%. - Dynamic LVOT obstruction noted. No obvious CON seen as before. Resting LVOT peak gradient 40 mm Hg, post valsalva 123 mm Hg. This is significantly worse than previous study. - Normal right ventricular cavity size and systolic function. - The left atrium is severely dilated. - Mildly elevated right atrial pressure. - There is mild dilatation of the sinuses of Valsalva measuring 4.00 cm and mild dilatation of the ascending aorta measuring 3.90 cm. - will avoid diuretics as they may worsen obstruction - Cardiology consultation JUHI - will give 1L NS, hold losartan, recehck BMP in AM hx HTN - resume metoprolol succinate; HCTZ + losartan held due to soft BP + UJHI CAD - continue ASA, atorvastatin, metoprolol succinate; hold ARB as above DM2 - lydia-dose lispro, hold linagliptin schizoaffective disorder - continue clozapine, lorazepam, trazodone VTE prophylaxis - LMWH dispo - eventual return to intermediate In my clinical judgment, the patient requires continued inpatient hospitalization for the following reasons: hypoxia Total time managing care of this patient today: 45 minutes. Quality Stroke Does the patient have a stroke diagnosis?: No VTE Prior VTE?: No VTE Risk Level:: Medical - moderate - high VTE Device Contraindication: N/A - Device Ordered VTE Drug Contraindication: N/A - Med Ordered
--- NOTE | 2023-10-11 14:39 | PM.CNCAR ---
History of Present Illness History of Present Illness Date of Service: 10/11/23 Requesting physician: Juan Boo Chief complaint: HCM, Influenza Narrative: [age] year olds gentleman with background history of hypertrophic obstructive cardiomyopathy, schizoaffective disorder, hypertension, diabetes, obstructive sleep apnea who is currently presenting from alf with shortness of breath and cough. He has influenza A. Chest x-ray showing interstitial infiltrate. ECHO is showing significant gradient in the left ventricular outflow tract and post Valsalva peak gradient was 123 mm Hg. He was also given some diuretics. He was on antihypertensive therapy with hydrochlorothiazide, metoprolol succinate and losartan. Currently denying any significant issues. He is on supplemental oxygen. He is saying he has been coughing up some phlegm. His antihypertensive medications are on hold. He is denying any peripheral edema but did complain of some orthopnea like episodes. He also has known history of sleep apnea. FOR[facility]LY [facility] Past Medical History Medical History (Updated 10/11/23 @ 14:43 by Javier Bah MD) COVID-19 Thought disorder Nocturnal hypoxemia Constipation COPD (chronic obstructive pulmonary disease) JUDY (obstructive sleep apnea) Smoker BPH (benign prostatic hyperplasia) Diabetes mellitus Obesity (BMI 30-39.9) Pure hypercholesterolemia Prolonged QT interval Essential hypertension HOCM (hypertrophic obstructive cardiomyopathy) Aggression Hypertension Coronary artery disease CHF (congestive heart failure) Cardiac arrhythmia Myocardial infarction Schizoaffective disorder Family History Family History Father Medical history unknown Mother Medical history unknown Sister Alive and well Surgical History Surgical History History of ankle surgery History of intestinal surgery History of transurethral resection of prostate Social History Social History Household Members: Other Household Members Other:: long term Housing: Other Housing Other:: long term Do you presently have visiting nurse or other home services: Yes Alcohol intake: current Alcohol intake frequency: does not drink Comment: camera on. Patient Tobacco Use Status: Current everyday Tobacco user Cigarettes Per Day: 5 Smoked in Last 30 Days: Yes Second Hand Smoke Exposure: No Use of substances other than those prescribed or required for medical reasons: No Substance Use Type: Unknown Advance Directives: No Advance Directives Information Provided: No service: No Current occupational status: disabled Sexual orientation: Did not discuss. Cognitive needs: Yes Hearing needs: No Vision needs: Yes Meds Allergies Allergy/AdvReac Type Severity Reaction Status Date / Time lithium [[place]] Allergy Severe TOXICITY Verified 09/05/23 10:47 thiothixene Allergy Severe SWELLING Verified 09/05/23 10:47 barium sulfate Allergy Intermediate NAUSEA & Verified 09/05/23 10:47 [BARIUM SULFATE] VOMITING haloperidol Allergy Intermediate MUSCLE Verified 09/05/23 10:47 TENSION IN LEGS benztropine Allergy Unknown benztropine Verified 09/05/23 10:47 mesylate- unknown diphenhydramine Allergy Unknown urinary Verified 09/05/23 10:47 [From Benadryl] retention fluphenazine Allergy Unknown UNKNOWN Verified 09/05/23 10:47 gabapentin [From NEURONTIN] Allergy Unknown UNKNOWN Verified 09/05/23 10:47 prolixen Allergy Unknown Unknown Uncoded 09/05/23 10:47 Active Medications: Current Medications Acetaminophen (Acetaminophen 325 Mg Tablet) 650 mg PO Q6H PRN PRN Reason: Pain, Mild (Pain Scale 1-3) Al Hydroxide/Mg Hydroxide (Magnesium Hydrox/Alum Hydrox 30 Ml Oral.Susp) 10 ml PO TID PRN PRN Reason: indegestion Albuterol Sulfate (Albuterol Sulfate (0.083%) 2.5 Mg/3 Ml Vial.Neb) 2.5 mg INHALE Q2H PRN PRN Reason: Shortness of Breath/Wheezing Albuterol/Ipratropium (Albuterol/Iprat 2.5/0.5mg 3 Ml Ampul.Neb) 3 ml INHALE RQ4H WHILE AWAKE [facility] Last Admin: 10/11/23 11:18 Dose: 3 ml Aspirin (Aspirin Enteric Coated 81 Mg Tablet.) 81 mg PO DAILY [facility] Last Admin: 10/11/23 07:46 Dose: 81 mg Aspirin (Aspirin Enteric Coated 81 Mg Tablet.) 81 mg PO DAILY [facility] Last Admin: 10/11/23 07:47 Dose: Not Given Atorvastatin Calcium (Atorvastatin Calcium 20 Mg Tablet) 20 mg PO BEDTIME [facility] Last Admin: 10/10/23 23:00 Dose: 20 mg Clozapine (Clozapine 100 Mg Tablet) 200 mg PO BEDTIME [facility] Last Admin: 10/10/23 23:01 Dose: 200 mg Clozapine (Clozapine 25 Mg Tablet) 75 mg PO BEDTIME [facility] Last Admin: 10/10/23 23:00 Dose: 75 mg Dextrose (Dextrose 50 % 25 Gm/50 Ml Syringe) 25 gm IVPUSH Q15M PRN; Protocol PRN Reason: per Hypoglycemia Standing Ord. Docusate Sodium (Docusate Sodium 100 Mg Capsule) 100 mg PO BID [facility] Last Admin: 10/11/23 07:40 Dose: 100 mg Enoxaparin Sodium (Enoxaparin Sodium 40 Mg/0.4 Ml Syringe) 40 mg SUBCUT Q24H [facility] Last Admin: 10/10/23 17:30 Dose: 40 mg Glucose (Glucose Gel 15 Gm Gel..Gram.) 15 gm PO Q15M PRN; Protocol PRN Reason: per Hypoglycemia Standing Ord. Ceftriaxone Sodium 1 gm/ (Sodium Chloride) 50 mls @ 100 mls/hr IV Q24H [facility] Last Admin: 10/11/23 10:46 Dose: 100 mls/hr Doxycycline Hyclate 100 mg/ (Sodium Chloride) 250 mls @ 166.67 mls/hr IV Q12H [facility] Last Admin: 10/11/23 05:06 Dose: 166.67 mls/hr Sodium Chloride (Ns) 1,000 mls @ 125 mls/hr IVCONT .Q8H [facility] Stop: 10/11/23 21:59 Insulin Human Lispro (Insulin Lispro 100 Unit/Ml 3 Ml Vial) 0 unit SUBCUT QIDACHS [facility]; Protocol Last Admin: 10/11/23 13:29 Dose: 2 unit Lorazepam (Lorazepam 0.5 Mg Tablet) 0.5 mg PO BEDTIME [facility] Last Admin: 10/10/23 23:00 Dose: 0.5 mg Lorazepam (Lorazepam 1 Mg Tablet) 1 mg PO BID@0800,1600 [facility] Last Admin: 10/11/23 07:40 Dose: 1 mg Lurasidone HCl (Lurasidone Hcl 40 Mg Tablet) 60 mg PO BEDTIME [facility] Last Admin: 10/10/23 23:01 Dose: 60 mg Methylprednisolone Sodium Succinate (Methylprednisolone Sod Succ 40 Mg/Ml Vial) 40 mg IVPUSH Q12H [facility] Last Admin: 10/11/23 13:29 Dose: 40 mg Metoprolol Succinate (Metoprolol Succinate Er 50 Mg Tab.Er.24h) 50 mg PO BID [facility]; Protocol Non-Formulary Medication (Testosterone [Androgel]) 2 packet TRANSDERMA DAILY [facility] Ondansetron HCl (Ondansetron Hcl 4 Mg/2 Ml Vial) 4 mg IVPUSH Q8H PRN PRN Reason: Nausea and Vomiting Oseltamivir Phosphate (Oseltamivir Phosphate 75 Mg Capsule) 75 mg PO Q12H [facility] Stop: 10/15/23 09:01 Last Admin: 10/11/23 07:40 Dose: 75 mg Polyethylene Glycol (Polyethylene Glycol 3350 17 Gm Powd.Pack) 17 gm PO DAILY PRN PRN Reason: Constipation Senna (Senna [place] Extract Oral Syrup 15 Ml Syrup) 15 ml PO BEDTIME [facility] Last Admin: 10/10/23 23:01 Dose: 15 ml Sodium Chloride (0.9 % Sodium Chloride Flush 3 Ml Syringe) 3 ml IVFLUSH QSHIFT [facility] Last Admin: 10/11/23 07:42 Dose: 3 ml Tamsulosin HCl (Tamsulosin Hcl 0.4 Mg Capsule) 0.4 mg PO BEDTIME [facility] Last Admin: 10/11/23 00:51 Dose: Not Given Trazodone HCl (Trazodone Hcl 50 Mg Tablet) 50 mg PO BEDTIME [facility] Last Admin: 10/10/23 23:00 Dose: 50 mg Vitamin D (Cholecalciferol (Vitamin D3) 25 Mcg Tablet) 25 mcg PO DAILY [facility] Last Admin: 10/11/23 07:46 Dose: 25 mcg Home Medications Medication Instructions Recorded Confirmed Last Taken Type docusate sodium 100 mg capsule 1 cap PO BID 08/18/22 10/10/23 10/09/23 History acetaminophen 500 mg tablet 1,000 mg PO Q6H PRN Pain 04/20/23 10/10/23 Unknown History atorvastatin 20 mg tablet 20 mg PO BEDTIME 04/20/23 10/10/23 10/09/23 History clozapine 100 mg tablet 200 mg PO BEDTIME 04/20/23 10/10/23 10/09/23 History clozapine 25 mg tablet 75 mg PO BEDTIME 04/20/23 10/10/23 10/09/23 History hydrochlorothiazide 12.5 mg capsule 12.5 mg PO DAILY 04/20/23 10/10/23 10/09/23 History lorazepam 0.5 mg tablet 0.5 mg PO BEDTIME 04/20/23 10/10/23 10/09/23 History lorazepam 1 mg tablet 1 mg PO BID@0800,1600 04/20/23 10/10/23 10/09/23 History lurasidone 60 mg tablet 60 mg PO BEDTIME 04/20/23 10/10/23 10/09/23 History polyethylene glycol 3350 17 17 g PO DAILY PRN Constipation 04/20/23 10/10/23 Unknown History gram/dose oral powder (Miralax) trazodone 50 mg tablet 50 mg PO BEDTIME 04/20/23 10/10/23 10/09/23 History albuterol sulfate 90 mcg/actuation 2 puff inhalation Q6H PRN 10/10/23 10/10/23 Unknown History aerosol inhaler Shortness Of Breath Or Wheezing aluminum-mag hydroxide-simethicone 10 ml PO TID PRN indegestion 10/10/23 10/10/23 Unknown History 200 mg-200 mg-20 mg/5 mL oral susp aspirin 81 mg tablet,delayed 81 mg PO DAILY 10/10/23 10/10/23 10/09/23 History release meloxicam 15 mg tablet 15 mg PO DAILY PRN Pain 10/10/23 10/10/23 Unknown History senna leaf extract 176 mg/5 mL 15 ml PO BEDTIME constipation 10/10/23 10/10/23 10/09/23 History oral syrup (senna) testosterone 1.62 % (20.25 mg/1.25 2 packet transdermal DAILY 10/10/23 10/10/23 10/09/23 History gram) transdermal gel packet (AndroGel) Physical Exam Vital Signs: Vital Signs: Last Vital Signs Temp 98.6 F 10/11/23 05:56 Pulse 101 H 10/11/23 11:20 Resp 18 10/11/23 11:20 BP 114/77 10/11/23 07:48 Pulse Ox 94 10/11/23 07:48 O2 Del Method Nasal Cannula 10/11/23 07:48 O2 Flow Rate 3 10/11/23 07:48 Oxygen Flow Rate 6 10/10/23 12:16 BMI result Body Mass Index 37.6 GENERAL APPEARANCE: in no acute distress, pleasant. On supplemental oxygen. NECK: no carotid bruit, + jugular venous distention. SKIN: no suspicious lesions, warm and dry. HEART: Systolic murmur all over the precordium, regular rate and rhythm. LUNGS: clear to auscultation bilaterally. ABDOMEN: soft, nontender. EXTREMITIES: no edema. PERIPHERAL PULSES: equal. NEUROLOGIC: No gross deficits, AAO X 3 Objective Labs and Meds 10/11/23 05:03 10/11/23 05:03 Lab results: Laboratory Results - last 24 hr 10/10/23 10/10/23 10/10/23 12:52 17:05 19:20 WBC RBC Hgb Hct MCV MCH MCHC RDW Plt Count MPV Absolute Nucleated RBC Nucleated RBC % (auto) VBG pH VBG pCO2 VBG pO2 VBG HCO3 VBG O2 Saturation VBG Base Excess Sodium Potassium Chloride Carbon Dioxide Anion Gap BUN Creatinine Estim Creat Clear Calc Estimated GFR POC Glucose 200 H Random Glucose Calcium Total Creatine Kinase 157 B-Natriuretic Peptide Urine Color Yellow Urine Appearance Clear Urine pH 5.5 Ur Specific [place] 1.015 Urine Protein Trace Urine Glucose (UA) Negative Urine Ketones Negative Urine Blood Negative Urine Nitrite Negative Ur Leukocyte Esterase Negative 10/10/23 10/11/23 10/11/23 22:17 05:03 05:09 WBC 8.1 RBC 4.17 L Hgb 11.2 L Hct 35.1 L MCV 84.2 MCH 26.9 L MCHC 31.9 RDW 16.3 H Plt Count 109 L MPV 11.9 Absolute Nucleated RBC 0.000 Nucleated RBC % (auto) 0.0 VBG pH 7.43 VBG pCO2 39 VBG pO2 59 VBG HCO3 26 VBG O2 Saturation 91.0 VBG Base Excess 2.4 Sodium 143 Potassium 4.1 Chloride 106 Carbon Dioxide 24 Anion Gap 17 BUN 30 H Creatinine 1.56 H Estim Creat Clear Calc 61.9 Estimated GFR 46 POC Glucose 311 H Random Glucose 189 H Calcium 9.2 Total Creatine Kinase B-Natriuretic Peptide Urine Color Urine Appearance Urine pH Ur Specific [place] Urine Protein Urine Glucose (UA) Urine Ketones Urine Blood Urine Nitrite Ur Leukocyte Esterase 10/11/23 10/11/23 10/11/23 07:12 08:48 13:16 WBC RBC Hgb Hct MCV MCH MCHC RDW Plt Count MPV Absolute Nucleated RBC Nucleated RBC % (auto) VBG pH VBG pCO2 VBG pO2 VBG HCO3 VBG O2 Saturation VBG Base Excess Sodium Potassium Chloride Carbon Dioxide Anion Gap BUN Creatinine Estim Creat Clear Calc Estimated GFR POC Glucose 202 H 194 H Random Glucose Calcium Total Creatine Kinase B-Natriuretic Peptide 807 H Urine Color Urine Appearance Urine pH Ur Specific [place] Urine Protein Urine Glucose (UA) Urine Ketones Urine Blood Urine Nitrite Ur Leukocyte Esterase Imaging Radiologist's impression: Impressions Chest X-Ray 10/10/23 13:50 IMPRESSION: Diffuse increased bilateral parahilar increased interstitial markings suggestive of interstitial pneumonitis or edema. Assessment and Plan (1) Influenza A: Status: Acute (2) Pneumonitis: Status: Acute (3) HOCM (hypertrophic obstructive cardiomyopathy): Status: Acute (4) CHF (congestive heart failure): Status: Acute Plan 58-year-old gentleman with known history of hypertrophic obstructive cardiomyopathy, hypertension and congestive heart failure who is presenting with influenza A. He has lung infiltrates and significantly elevated BNP level. He is mild JVD on examination. He was given IV diuretics. He has significantly elevated left ventricular outflow tract gradient. LVOT gradient in hypertrophic obstructive cardiomyopathy can worsen with decreasing preload or afterload. I think the gradients are high due to infection currently. I think we avoid giving him IV diuretics further. Give him 20 mg p.o. Lasix. Stop the hydrochlorothiazide. Resume metoprolol succinate once a day 50 mg. As he improves and his blood pressure is better increase it back to b.i.d.. Can hold losartan for now. As per previous notes, he has not a good candidate for any specific treatments for HOCM due to psychiatric issues. Thank you for allowing me to participate in the care of your patient. Please feel free to contact me if you have any questions. Procedures Date of Service Date of Service: 10/11/23
--- NOTE | 2023-10-11 15:13 | MHC.CM.PN ---
IMM 10/11/23 sent to brother / HCP Nigelmichael Morley, phone message left for him too. Pt lives in a [facility] supported apt. He has assistance with managing meds, his supplemental O2, and getting to appts. [facility] in [place]. He has home oxygen, he is independent with personal care. He does not have VNA services. Broadcast Director Operations of supportive living is: Rebecca, [phone]. Staff can provide transportation home is DC is during the day.
--- NOTE | 2023-10-11 15:27 | PC.NURSE ---
patient sitting up in chair, on 3l NC recieving breathing treatment, respirations equal and unlabored, skin PWD. patient alert and oriented listening to music on his phone, medicated per MAR, able to make needs known, call dickson within reach, fresh water pitcher given
--- NOTE | 2023-10-11 19:47 | PC.NURSE ---
this rn assumed care of pt @ 1915. sliding scale insulin not given prior to pt receiving dinner. previous nurse did not administer. too close to 2100 dose to administer. Spoke with pharmacist atif, recommended to hold afternoon dose of sliding scale insulin and administer 2100 dose as scheduled
[2023-10-12] VITALS (9 sets, daily range): BP systolic 117–135; BP diastolic 60–82; PULSE 80–98; RESP 2–22; TEMP 36.1–36.4; O2SAT 92–99; BMI 38.5
--- NOTE | 2023-10-12 11:19 | HO.PM.IMPN ---
Subjective Subjective Date of Service: 10/12/23 Interval History: cough/dyspnea improved Review of Systems Review of Systems: Yes all other systems are reviewed and are negative Physical Exam Vital Signs: Vital Signs: Last Vital Signs Temp 96.9 F 10/12/23 07:12 Pulse 84 10/12/23 07:35 Resp 20 10/12/23 07:35 BP 135/82 10/12/23 07:12 Pulse Ox 98 10/12/23 07:12 O2 Del Method Nasal Cannula 10/12/23 07:12 O2 Flow Rate 3 10/12/23 07:12 Oxygen Flow Rate 6 10/10/23 12:16 BMI result Body Mass Index 38.5 Gen: NAD HEENT: sclera anicteric, moist mucus membranes Neck: supple Lungs: diminished Heart: regular, systolic murmur Abd: soft, non-tender, non-distended Ext: no edema Skin: warm/well-perfused Neuro: alert and oriented x3, no focal findings Psych: appropriate affect Objective Data Active Medications Acetaminophen (Acetaminophen 325 Mg Tablet) 650 mg PO Q6H PRN PRN Reason: Pain, Mild (Pain Scale 1-3) Al Hydroxide/Mg Hydroxide (Magnesium Hydrox/Alum Hydrox 30 Ml Oral.Susp) 10 ml PO TID PRN PRN Reason: indegestion Albuterol Sulfate (Albuterol Sulfate (0.083%) 2.5 Mg/3 Ml Vial.Neb) 2.5 mg INHALE Q2H PRN PRN Reason: Shortness of Breath/Wheezing Albuterol/Ipratropium (Albuterol/Iprat 2.5/0.5mg 3 Ml Ampul.Neb) 3 ml INHALE RQ4H WHILE AWAKE [facility] Last Admin: 10/12/23 07:31 Dose: 3 ml Documented By: INGRID Aspirin (Aspirin Enteric Coated 81 Mg Tablet.) 81 mg PO DAILY [facility] Last Admin: 10/11/23 07:46 Dose: 81 mg Documented By: SEVEN Aspirin (Aspirin Enteric Coated 81 Mg Tablet.) 81 mg PO DAILY [facility] Last Admin: 10/12/23 08:50 Dose: 81 mg Documented By: ROBERT Atorvastatin Calcium (Atorvastatin Calcium 20 Mg Tablet) 20 mg PO BEDTIME [facility] Last Admin: 10/11/23 23:01 Dose: 20 mg Documented By: DIEGO Clozapine (Clozapine 100 Mg Tablet) 200 mg PO BEDTIME [facility] Last Admin: 10/11/23 23:01 Dose: 200 mg Documented By: DIEGO Clozapine (Clozapine 25 Mg Tablet) 75 mg PO BEDTIME [facility] Last Admin: 10/11/23 23:01 Dose: 75 mg Documented By: DIEGO Dextrose (Dextrose 50 % 25 Gm/50 Ml Syringe) 25 gm IVPUSH Q15M PRN; Protocol PRN Reason: per Hypoglycemia Standing Ord. Docusate Sodium (Docusate Sodium 100 Mg Capsule) 100 mg PO BID [facility] Last Admin: 10/12/23 08:44 Dose: 100 mg Documented By: ROBERT Enoxaparin Sodium (Enoxaparin Sodium 40 Mg/0.4 Ml Syringe) 40 mg SUBCUT Q24H [facility] Last Admin: 10/11/23 15:30 Dose: 40 mg Documented By: BEBETO Furosemide (Furosemide 20 Mg Tablet) 20 mg PO DAILY [facility]; Protocol Last Admin: 10/12/23 08:44 Dose: 20 mg Documented By: ROBERT Glucose (Glucose Gel 15 Gm Gel..Gram.) 15 gm PO Q15M PRN; Protocol PRN Reason: per Hypoglycemia Standing Ord. Ceftriaxone Sodium 1 gm/ (Sodium Chloride) 50 mls @ 100 mls/hr IV Q24H [facility] Last Infusion: 10/12/23 09:52 Dose: Infused Documented By: ROBERT Doxycycline Hyclate 100 mg/ (Sodium Chloride) 250 mls @ 166.67 mls/hr IV Q12H [facility] Last Infusion: 10/12/23 06:25 Dose: Infused Documented By: DIEGO Insulin Human Lispro (Insulin Lispro 100 Unit/Ml 3 Ml Vial) 0 unit SUBCUT QIDACHS [facility]; Protocol Last Admin: 10/12/23 08:47 Dose: 2 unit Documented By: ROBERT Lorazepam (Lorazepam 0.5 Mg Tablet) 0.5 mg PO BEDTIME [facility] Last Admin: 10/11/23 23:01 Dose: 0.5 mg Documented By: DIEGO Lorazepam (Lorazepam 1 Mg Tablet) 1 mg PO BID@0800,1600 [facility] Last Admin: 10/12/23 08:46 Dose: 1 mg Documented By: ROBERT Lurasidone HCl (Lurasidone Hcl 40 Mg Tablet) 60 mg PO BEDTIME [facility] Last Admin: 10/11/23 23:00 Dose: 60 mg Documented By: DIEGO Methylprednisolone Sodium Succinate (Methylprednisolone Sod Succ 40 Mg/Ml Vial) 40 mg IVPUSH Q12H [facility] Last Admin: 10/12/23 00:53 Dose: 40 mg Documented By: DIEGO Metoprolol Succinate (Metoprolol Succinate Er 50 Mg Tab.Er.24h) 50 mg PO BID [facility]; Protocol Last Admin: 10/12/23 08:44 Dose: 50 mg Documented By: ROBERT Non-Formulary Medication (Testosterone [Androgel]) 2 packet TRANSDERMA DAILY [facility] Oseltamivir Phosphate (Oseltamivir Phosphate 75 Mg Capsule) 75 mg PO Q12H [facility] Stop: 10/15/23 09:01 Last Admin: 10/12/23 08:44 Dose: 75 mg Documented By: ROBERT Polyethylene Glycol (Polyethylene Glycol 3350 17 Gm Powd.Pack) 17 gm PO DAILY PRN PRN Reason: Constipation Senna (Senna [place] Extract Oral Syrup 15 Ml Syrup) 15 ml PO BEDTIME [facility] Last Admin: 10/11/23 23:04 Dose: Not Given Documented By: DIEGO Non-Admin Reason: Med Not Available Sodium Chloride (0.9 % Sodium Chloride Flush 3 Ml Syringe) 3 ml IVFLUSH QSHIFT [facility] Last Admin: 10/12/23 08:47 Dose: 3 ml Documented By: ROBERT Tamsulosin HCl (Tamsulosin Hcl 0.4 Mg Capsule) 0.4 mg PO BEDTIME [facility] Last Admin: 10/11/23 23:00 Dose: 0.4 mg Documented By: DIEGO Trazodone HCl (Trazodone Hcl 50 Mg Tablet) 50 mg PO BEDTIME [facility] Last Admin: 10/11/23 23:01 Dose: 50 mg Documented By: DIEGO Vitamin D (Cholecalciferol (Vitamin D3) 25 Mcg Tablet) 25 mcg PO DAILY [facility] Last Admin: 10/12/23 08:44 Dose: 25 mcg Documented By: ROBERT Labs 10/12/23 07:13 10/12/23 07:13 Labs: Laboratory Results - last 24 hr 10/11/23 10/11/23 10/11/23 13:16 18:50 20:11 MCV MCH MCHC RDW Plt Count MPV Absolute Nucleated RBC Nucleated RBC % (auto) Anion Gap Estim Creat Clear Calc Estimated GFR POC Glucose 194 H 322 H 357 H* Random Glucose Calcium B-Natriuretic Peptide Procalcitonin 10/12/23 10/12/23 10/12/23 07:01 07:13 10:50 MCV 86.1 MCH 26.9 L MCHC 31.3 RDW 16.5 H Plt Count 129 L MPV 12.6 H Absolute Nucleated RBC 0.000 Nucleated RBC % (auto) 0.0 Anion Gap 14 Estim Creat Clear Calc 80.2 Estimated GFR > 60 POC Glucose 188 H 248 H Random Glucose 226 H Calcium 8.4 D B-Natriuretic Peptide 366 H Procalcitonin 0.16 Microbiology Microbiology Results: Microbiology 10/10/23 12:56 Blood Culture - Preliminary Blood - Venous No growth after 24 hours. 10/10/23 12:49 Blood Culture - Preliminary Blood - Venous No growth after 24 hours. Assessment and Plan (1) Hypoxia: Status: Acute Plan d3 58yo M shelter resident with schizoaffective disorder, HOCM, COPD on 2L NC at night, JUDY, CAD, HTN, and DM2 presenting with 2-3 weeks of dyspnea, cough, and wheeze, admitted for hyoxia + COPD exacerbation due to influenza A AHRF due to COPD exac due to flu A - wean O2 as tolerated, was on 6L on admission and now on 3L - oseltamivir 10/10-10/15 - methylprednisolone 10/11- - standing/prn nebs - antibacterial coverage with ceftriaxone + doxycycline 10/12-10/16 given duration of symptoms putting him at risk of superimposed pneumonia though PCT is low; BCx negative to date HOCM - TTE 10/10/23: - Normal left ventricular cavity size. There is severely increased left ventricular wall thickness. The left ventricular systolic function is hyperdynamic. The visually estimated ejection fraction is >70%. - Dynamic LVOT obstruction noted. No obvious CON seen as before. Resting LVOT peak gradient 40 mm Hg, post valsalva 123 mm Hg. This is significantly worse than previous study. - Normal right ventricular cavity size and systolic function. - The left atrium is severely dilated. - Mildly elevated right atrial pressure. - There is mild dilatation of the sinuses of Valsalva measuring 4.00 cm and mild dilatation of the ascending aorta measuring 3.90 cm. - Cardiology consulted; started PO furosemide; continue metoprolol succinate; d/c HCTZ + losartan JUHI - resolved, d/c'ed losartan + HCTZ HTN - metoprolol succinate; d/c'ed losartan + HCTZ due to soft BP + JUHI CAD - continue ASA, atorvastatin, metoprolol succinate DM2 with hyperglycemia - increase lydia-dose lispro, holding linagliptin schizoaffective disorder - continue clozapine, lorazepam, trazodone VTE prophylaxis - LMWH dispo - eventual return to shelter In my clinical judgment, the patient requires continued inpatient hospitalization for the following reasons: hypoxia Total time managing care of this patient today: 40 minutes. Quality Stroke Does the patient have a stroke diagnosis?: No VTE Prior VTE?: No VTE Risk Level:: Medical - moderate - high VTE Device Contraindication: N/A - Device Ordered VTE Drug Contraindication: N/A - Med Ordered
[2023-10-13] VITALS (9 sets, daily range): BP systolic 119–140; BP diastolic 70–86; PULSE 75–88; RESP 16–20; TEMP 35.8–36.3; O2SAT 95–99
[2023-10-13 08:41] LABS: Anion Gap 12 (12-20); Blood Urea Nitrogen 27 mg/dL (9-16); Calcium 8.5 mg/dL (8.4-10.2); Carbon Dioxide 26 mmol/L (22-29); Chloride 111 mmol/L (96-108); Estimated Glomerular Filt Rate > 60; Glucose Random 207 mg/dL (60-115); Potassium 4.5 mmol/L (3.3-5.1); Sodium 144 mmol/L (135-145)
--- NOTE | 2023-10-13 10:42 | HO.PM.IMPN ---
Subjective Subjective Date of Service: 10/13/23 Interval History: Complaining of shortness of breath and cough, better than before denies fever, chills, tolerating diet no nausea no vomiting no diarrhea no other acute issues overnight. Review of Systems All other system reviewed and negative. Physical Exam Vital Signs: Vital Signs: Last Vital Signs Temp 97 F 10/13/23 08:00 Pulse 88 10/13/23 08:30 Resp 20 10/13/23 08:30 BP 130/82 10/13/23 08:00 Pulse Ox 95 10/13/23 08:00 O2 Del Method Nasal Cannula 10/13/23 08:00 O2 Flow Rate 3 10/13/23 08:00 Oxygen Flow Rate 6 10/10/23 12:16 BMI result Body Mass Index 38.5 Const: Other: Gen: Awake alert, no acute distress. HEENT: sclera anicteric, moist mucus membranes Neck: supple Lungs: diminished Heart: regular, systolic murmur Abd: soft, non-tender, non-distended Ext: no edema Skin: warm/well-perfused Neuro: alert and oriented x3, no focal findings Psych: appropriate affect Objective Data Active Medications Acetaminophen (Acetaminophen 325 Mg Tablet) 650 mg PO Q6H PRN PRN Reason: Pain, Mild (Pain Scale 1-3) Al Hydroxide/Mg Hydroxide (Magnesium Hydrox/Alum Hydrox 30 Ml Oral.Susp) 10 ml PO TID PRN PRN Reason: indegestion Albuterol Sulfate (Albuterol Sulfate (0.083%) 2.5 Mg/3 Ml Vial.Neb) 2.5 mg INHALE Q2H PRN PRN Reason: Shortness of Breath/Wheezing Albuterol/Ipratropium (Albuterol/Iprat 2.5/0.5mg 3 Ml Ampul.Neb) 3 ml INHALE RQ4H WHILE AWAKE [facility] Last Admin: 10/13/23 08:22 Dose: 3 ml Documented By: ELANA Aspirin (Aspirin Enteric Coated 81 Mg Tablet.) 81 mg PO DAILY [facility] Last Admin: 10/13/23 08:38 Dose: 81 mg Documented By: YESI Aspirin (Aspirin Enteric Coated 81 Mg Tablet.) 81 mg PO DAILY [facility] Last Admin: 10/13/23 08:49 Dose: Not Given Documented By: YESI Non-Admin Reason: Duplicate Order Atorvastatin Calcium (Atorvastatin Calcium 20 Mg Tablet) 20 mg PO BEDTIME [facility] Last Admin: 10/12/23 21:13 Dose: 20 mg Documented By: BANDAR Clozapine (Clozapine 100 Mg Tablet) 200 mg PO BEDTIME [facility] Last Admin: 10/12/23 21:13 Dose: 200 mg Documented By: BANDAR Clozapine (Clozapine 25 Mg Tablet) 75 mg PO BEDTIME [facility] Last Admin: 10/12/23 21:13 Dose: 75 mg Documented By: BANDAR Dextrose (Dextrose 50 % 25 Gm/50 Ml Syringe) 25 gm IVPUSH Q15M PRN; Protocol PRN Reason: per Hypoglycemia Standing Ord. Docusate Sodium (Docusate Sodium 100 Mg Capsule) 100 mg PO BID [facility] Last Admin: 10/13/23 08:38 Dose: 100 mg Documented By: YESI Enoxaparin Sodium (Enoxaparin Sodium 40 Mg/0.4 Ml Syringe) 40 mg SUBCUT Q24H [facility] Last Admin: 10/12/23 16:57 Dose: 40 mg Documented By: ROBERT Furosemide (Furosemide 20 Mg Tablet) 20 mg PO DAILY [facility]; Protocol Last Admin: 10/13/23 08:39 Dose: 20 mg Documented By: YESI Glucose (Glucose Gel 15 Gm Gel..Gram.) 15 gm PO Q15M PRN; Protocol PRN Reason: per Hypoglycemia Standing Ord. Ceftriaxone Sodium 1 gm/ (Sodium Chloride) 50 mls @ 100 mls/hr IV Q24H [facility] Last Infusion: 10/12/23 09:52 Dose: Infused Documented By: ROBERT Doxycycline Hyclate 100 mg/ (Sodium Chloride) 250 mls @ 166.67 mls/hr IV Q12H [facility] Last Infusion: 10/13/23 07:01 Dose: Infused Documented By: YESI Insulin Human Lispro (Insulin Lispro 100 Unit/Ml 3 Ml Vial) 0 unit SUBCUT QIDACHS [facility]; Protocol Last Admin: 10/13/23 08:37 Dose: 4 unit Documented By: YESI Lorazepam (Lorazepam 0.5 Mg Tablet) 0.5 mg PO BEDTIME [facility] Last Admin: 10/12/23 21:13 Dose: 0.5 mg Documented By: BANDAR Lorazepam (Lorazepam 1 Mg Tablet) 1 mg PO BID@0800,1600 [facility] Last Admin: 10/13/23 08:37 Dose: 1 mg Documented By: YESI Lurasidone HCl (Lurasidone Hcl 40 Mg Tablet) 60 mg PO BEDTIME [facility] Last Admin: 10/12/23 21:13 Dose: 60 mg Documented By: BANDAR Methylprednisolone Sodium Succinate (Methylprednisolone Sod Succ 40 Mg/Ml Vial) 40 mg IVPUSH Q24H [facility] Last Admin: 10/12/23 23:47 Dose: 40 mg Documented By: BANDAR Metoprolol Succinate (Metoprolol Succinate Er 50 Mg Tab.Er.24h) 50 mg PO BID [facility]; Protocol Last Admin: 10/13/23 08:39 Dose: 50 mg Documented By: YESI Non-Formulary Medication (Testosterone [Androgel]) 2 packet TRANSDERMA DAILY [facility] Oseltamivir Phosphate (Oseltamivir Phosphate 75 Mg Capsule) 75 mg PO Q12H [facility] Stop: 10/15/23 09:01 Last Admin: 10/13/23 08:39 Dose: 75 mg Documented By: YESI Polyethylene Glycol (Polyethylene Glycol 3350 17 Gm Powd.Pack) 17 gm PO DAILY PRN PRN Reason: Constipation Senna (Senna [place] Extract Oral Syrup 15 Ml Syrup) 15 ml PO BEDTIME [facility] Last Admin: 10/12/23 21:10 Dose: Not Given Documented By: BANDAR Non-Admin Reason: Med Not Available Sodium Chloride (0.9 % Sodium Chloride Flush 3 Ml Syringe) 3 ml IVFLUSH QSHIFT [facility] Last Admin: 10/13/23 08:42 Dose: 3 ml Documented By: YESI Tamsulosin HCl (Tamsulosin Hcl 0.4 Mg Capsule) 0.4 mg PO BEDTIME [facility] Last Admin: 10/12/23 21:13 Dose: 0.4 mg Documented By: BANDAR Trazodone HCl (Trazodone Hcl 50 Mg Tablet) 50 mg PO BEDTIME [facility] Last Admin: 10/12/23 21:13 Dose: 50 mg Documented By: BANDAR Vitamin D (Cholecalciferol (Vitamin D3) 25 Mcg Tablet) 25 mcg PO DAILY [facility] Last Admin: 10/13/23 08:37 Dose: 25 mcg Documented By: YESI Labs 10/13/23 07:19 10/13/23 07:18 Labs: Laboratory Results - last 24 hr 10/12/23 10/12/23 10/12/23 10:50 15:36 19:48 MCV MCH MCHC RDW Plt Count MPV Absolute Nucleated RBC Nucleated RBC % (auto) Anion Gap Estim Creat Clear Calc Estimated GFR POC Glucose 248 H 260 H 236 H Random Glucose Calcium 10/13/23 10/13/23 10/13/23 07:18 07:19 08:24 MCV 86.7 MCH 26.9 L MCHC 31.0 RDW 16.5 H Plt Count 115 L MPV 12.3 Absolute Nucleated RBC 0.000 Nucleated RBC % (auto) 0.0 Anion Gap 12 Estim Creat Clear Calc 95.0 Estimated GFR > 60 POC Glucose 182 H Random Glucose 207 H Calcium 8.5 Microbiology Microbiology Results: Microbiology 10/10/23 12:56 Blood Culture - Preliminary Blood - Venous No growth after 48 hours. 10/10/23 12:49 Blood Culture - Preliminary Blood - Venous No growth after 48 hours. Assessment and Plan (1) Hypoxia: Status: Acute Plan 58yo M retirement resident with schizoaffective disorder, HOCM, COPD on 2L NC at night, JUDY, CAD, HTN, and DM2 presenting with 2-3 weeks of dyspnea, cough, and wheeze, admitted for hypoxia + COPD exacerbation due to influenza A. Acute hypoxic respiratory failure due to COPD exac due to flu A -gradually improving encourage incentive spirometry - wean O2 as tolerated, use 2 L of oxygen at night. - continue oseltamivir 10/10-10/15 and IV methylprednisolone , standing/prn nebs - will DC IV ceftriaxone, change to by mouth doxycycline day 2 for pneumonitis ,BCx negative to date, procalcitonin 0.16 HOCM seen by Cardiology case discussed with Dr. Bah recommend to continue Lasix, and metoprolol, home dose of losartan and hydrochlorothiazide discontinued. Hemodynamically stable - TTE 10/10/23: - Normal left ventricular cavity size. There is severely increased left ventricular wall thickness. The left ventricular systolic function is hyperdynamic. The visually estimated ejection fraction is >70%. - Dynamic LVOT obstruction noted. No obvious CON seen as before. Resting LVOT peak gradient 40 mm Hg, post valsalva 123 mm Hg. This is significantly worse than previous study. - Normal right ventricular cavity size and systolic function. - The left atrium is severely dilated. - Mildly elevated right atrial pressure. - There is mild dilatation of the sinuses of Valsalva measuring 4.00 cm and mild dilatation of the ascending aorta measuring 3.90 cm. JUHI - resolved, d/c'ed losartan + HCTZ HTN - stable blood pressure continue metoprolol succinate CAD - continue ASA, atorvastatin, metoprolol succinate DM2 is stable blood sugars continue lydia-dose lispro, holding linagliptin schizoaffective disorder - continue clozapine, lorazepam, trazodone VTE prophylaxis - LMWH dispo - eventual return to retirement In my clinical judgment, the patient requires continued inpatient hospitalization for the following reasons: hypoxia Total time managing care of this patient today: 40 minutes. Quality Stroke Does the patient have a stroke diagnosis?: No VTE Prior VTE?: No VTE Risk Level:: Medical - moderate - high VTE Device Contraindication: N/A - Device Ordered VTE Drug Contraindication: N/A - Med Ordered
[2023-10-14] VITALS (10 sets, daily range): BP systolic 134–159; BP diastolic 75–85; PULSE 66–87; RESP 18–22; TEMP 35.9–37.1; O2SAT 92–97
--- NOTE | 2023-10-14 12:49 | HO.PM.IMPN ---
Subjective Subjective Date of Service: 10/14/23 Interval History: Denies fever, no chills, Cough and shortness of breath improving, no bowel bladder issues, no acute events overnight. Review of Systems All other system reviewed and negative. Physical Exam Vital Signs: Vital Signs: Last Vital Signs Temp 97.7 F 10/14/23 10:53 Pulse 75 10/14/23 11:34 Resp 18 10/14/23 11:34 BP 135/83 10/14/23 10:53 Pulse Ox 96 10/14/23 10:53 O2 Del Method Room Air 10/14/23 10:53 O2 Flow Rate 1 10/14/23 07:21 Oxygen Flow Rate 6 10/10/23 12:16 BMI result Body Mass Index 38.5 Const: Other: Gen: Awake alert, no acute distress. HEENT: sclera anicteric, moist mucus membranes Neck: supple Lungs: diminished,few rhonchi Heart: regular, systolic murmur Abd: soft, non-tender, non-distended Ext: no edema Skin: warm/well-perfused Neuro: alert and oriented x3, no focal findings Psych: appropriate affect Objective Data Active Medications Acetaminophen (Acetaminophen 325 Mg Tablet) 650 mg PO Q6H PRN PRN Reason: Pain, Mild (Pain Scale 1-3) Al Hydroxide/Mg Hydroxide (Magnesium Hydrox/Alum Hydrox 30 Ml Oral.Susp) 10 ml PO TID PRN PRN Reason: indegestion Albuterol Sulfate (Albuterol Sulfate (0.083%) 2.5 Mg/3 Ml Vial.Neb) 2.5 mg INHALE Q2H PRN PRN Reason: Shortness of Breath/Wheezing Albuterol/Ipratropium (Albuterol/Iprat 2.5/0.5mg 3 Ml Ampul.Neb) 3 ml INHALE RQ4H WHILE AWAKE [facility] Last Admin: 10/14/23 11:33 Dose: 3 ml Documented By: SANTINO Aspirin (Aspirin Enteric Coated 81 Mg Tablet.) 81 mg PO DAILY [facility] Last Admin: 10/14/23 08:05 Dose: 81 mg Documented By: JOSE Atorvastatin Calcium (Atorvastatin Calcium 20 Mg Tablet) 20 mg PO BEDTIME [facility] Last Admin: 10/13/23 20:40 Dose: 20 mg Documented By: BANDAR Clozapine (Clozapine 100 Mg Tablet) 200 mg PO BEDTIME [facility] Last Admin: 10/13/23 20:41 Dose: 200 mg Documented By: BANDAR Clozapine (Clozapine 25 Mg Tablet) 75 mg PO BEDTIME [facility] Last Admin: 10/13/23 20:40 Dose: 75 mg Documented By: BANDAR Dextrose (Dextrose 50 % 25 Gm/50 Ml Syringe) 25 gm IVPUSH Q15M PRN; Protocol PRN Reason: per Hypoglycemia Standing Ord. Docusate Sodium (Docusate Sodium 100 Mg Capsule) 100 mg PO BID [facility] Last Admin: 10/14/23 08:04 Dose: 100 mg Documented By: JOSE Doxycycline Monohydrate (Doxycycline Monohydrate 100 Mg Capsule) 100 mg PO Q12H [facility] Last Admin: 10/14/23 05:50 Dose: 100 mg Documented By: BANDAR Enoxaparin Sodium (Enoxaparin Sodium 40 Mg/0.4 Ml Syringe) 40 mg SUBCUT Q24H [facility] Last Admin: 10/13/23 16:32 Dose: 40 mg Documented By: YESI Furosemide (Furosemide 20 Mg Tablet) 20 mg PO DAILY [facility]; Protocol Last Admin: 10/14/23 08:04 Dose: 20 mg Documented By: JOSE Glucose (Glucose Gel 15 Gm Gel..Gram.) 15 gm PO Q15M PRN; Protocol PRN Reason: per Hypoglycemia Standing Ord. Ceftriaxone Sodium 1 gm/ (Sodium Chloride) 50 mls @ 100 mls/hr IV Q24H [facility] Last Infusion: 10/14/23 08:43 Dose: Infused Documented By: JOSE Insulin Human Lispro (Insulin Lispro 100 Unit/Ml 3 Ml Vial) 0 unit SUBCUT QIDACHS [facility]; Protocol Last Admin: 10/14/23 11:00 Dose: 6 unit Documented By: JOSE Lorazepam (Lorazepam 0.5 Mg Tablet) 0.5 mg PO BEDTIME [facility] Last Admin: 10/13/23 20:41 Dose: 0.5 mg Documented By: BANDAR Lorazepam (Lorazepam 1 Mg Tablet) 1 mg PO BID@0800,1600 [facility] Last Admin: 10/14/23 08:05 Dose: 1 mg Documented By: JOSE Lurasidone HCl (Lurasidone Hcl 40 Mg Tablet) 60 mg PO BEDTIME [facility] Last Admin: 10/13/23 20:41 Dose: 60 mg Documented By: BANDAR Methylprednisolone Sodium Succinate (Methylprednisolone Sod Succ 40 Mg/Ml Vial) 40 mg IVPUSH Q24H [facility] Last Admin: 10/13/23 23:42 Dose: 40 mg Documented By: BANDAR Metoprolol Succinate (Metoprolol Succinate Er 50 Mg Tab.Er.24h) 50 mg PO BID [facility]; Protocol Last Admin: 10/14/23 08:04 Dose: 50 mg Documented By: JOSE Non-Formulary Medication (Testosterone [Androgel]) 2 packet TRANSDERMA DAILY [facility] Oseltamivir Phosphate (Oseltamivir Phosphate 75 Mg Capsule) 75 mg PO Q12H [facility] Stop: 10/15/23 09:01 Last Admin: 10/14/23 08:05 Dose: 75 mg Documented By: JOSE Polyethylene Glycol (Polyethylene Glycol 3350 17 Gm Powd.Pack) 17 gm PO DAILY PRN PRN Reason: Constipation Senna (Senna [place] Extract Oral Syrup 15 Ml Syrup) 15 ml PO BEDTIME [facility] Last Admin: 10/13/23 20:41 Dose: Not Given Documented By: BANDAR Non-Admin Reason: Med Not Available Sodium Chloride (0.9 % Sodium Chloride Flush 3 Ml Syringe) 3 ml IVFLUSH [facility] Last Admin: 10/14/23 08:06 Dose: 3 ml Documented By: JOSE Tamsulosin HCl (Tamsulosin Hcl 0.4 Mg Capsule) 0.4 mg PO BEDTIME [facility] Last Admin: 10/13/23 20:33 Dose: Not Given Documented By: BANDAR Non-Admin Reason: Patient Refused Trazodone HCl (Trazodone Hcl 50 Mg Tablet) 50 mg PO BEDTIME [facility] Last Admin: 10/13/23 20:40 Dose: 50 mg Documented By: BANDAR Vitamin D (Cholecalciferol (Vitamin D3) 25 Mcg Tablet) 25 mcg PO DAILY [facility] Last Admin: 10/14/23 08:04 Dose: 25 mcg Documented By: JOSE Labs 10/13/23 07:19 10/13/23 07:18 Labs: Laboratory Results - last 24 hr 10/13/23 10/13/23 10/14/23 16:18 19:48 07:18 POC Glucose 174 H 189 H 227 H 10/14/23 10:50 POC Glucose 203 H Assessment and Plan (1) Hypoxia: Status: Acute Plan 58yo M [facility] resident with schizoaffective disorder, HOCM, COPD on 2L NC at night, JUDY, CAD, HTN, and DM2 presenting with 2-3 weeks of dyspnea, cough, and wheeze, admitted for hypoxia + COPD exacerbation due to influenza A. Acute hypoxic respiratory failure due to COPD exac due to flu A - gradually improving encourage incentive spirometry - wean O2 as tolerated, on 2 L of oxygen baseline at night. - continue oseltamivir 10/10-10/15, dc IV methylprednisolone , transition to po steroids, cont standing/prn nebs - on by mouth doxycycline day 12/10 for pneumonitis ,BCx negative to date, procalcitonin 0.16 HOCM seen by Cardiology case discussed with Dr. Bah recommend to continue Lasix, and metoprolol, home dose of losartan and hydrochlorothiazide discontinued. Hemodynamically stable - TTE 10/10/23: - Normal left ventricular cavity size. There is severely increased left ventricular wall thickness. The left ventricular systolic function is hyperdynamic. The visually estimated ejection fraction is >70%. - Dynamic LVOT obstruction noted. No obvious CON seen as before. Resting LVOT peak gradient 40 mm Hg, post valsalva 123 mm Hg. This is significantly worse than previous study. - Normal right ventricular cavity size and systolic function. - The left atrium is severely dilated. - Mildly elevated right atrial pressure. - There is mild dilatation of the sinuses of Valsalva measuring 4.00 cm and mild dilatation of the ascending aorta measuring 3.90 cm. JUHI - resolved, d/c'ed losartan + HCTZ HTN - continue metoprolol succinate, few high blood pressure readings BP remains elevated will resume losartan 25 mg daily CAD - continue ASA, atorvastatin, metoprolol succinate DM2 is stable blood sugars continue lydia-dose lispro, holding linagliptin schizoaffective disorder - continue clozapine, lorazepam, trazodone VTE prophylaxis - LMWH dispo - eventual return to [facility] In my clinical judgment, the patient requires continued inpatient hospitalization for the following reasons: hypoxia Total time managing care of this patient today: 40 minutes. Quality Stroke Does the patient have a stroke diagnosis?: No VTE Prior VTE?: No VTE Risk Level:: Medical - moderate - high VTE Device Contraindication: N/A - Device Ordered VTE Drug Contraindication: N/A - Med Ordered
[2023-10-15] VITALS: BP 156/78; PULSE 82; RESP 18; TEMP 36.4; O2SAT 94
[2023-10-15 03:59] VITALS: BP 164/102; PULSE 93; RESP 20; TEMP 36.4; O2SAT 95
[2023-10-15 07:20] VITALS: BP 142/89; PULSE 80; RESP 20; TEMP 36.3; O2SAT 96
[2023-10-15 07:53] VITALS: PULSE 81; RESP 20; O2SAT 98
--- NOTE | 2023-10-15 10:55 | MHC.CM.PN ---
Per ROUNDS discussion, Patient will be medically cleared for dc to return to his assisted today. CM spoke with 2 Skilled Nursing Reps (Deepika & Rebecca @ [phone]) who are aware of and in agreement with the dc plan.IMM to be addressed with HCP.
[2023-10-15 11:10] VITALS: BP 143/93; PULSE 79; RESP 20; TEMP 36.2; O2SAT 93
[2023-10-15 11:13] VITALS: PULSE 79; RESP 18; O2SAT 93
--- NOTE | 2023-10-15 11:21 | PM.DS ---
DS: Providers Provider Date of Service: 10/15/23 Date of admission: 10/10/23 16:27 Primary care physician: Joseph Booth MD Consults: 10/11/23 13:48 Consult to Cardiology Routine Consulting Provider: [facility] Reason for consultation: HOCM DS: Diagnosis Discharge Diagnosis (1) Hypoxia: Status: Acute DS: Summary Hospital Course Hospital Course: History of presenting illness: Date of Service: 10/10/23 Chief Complaint: cough, fever 58 yo male intermediate resident with PMH of schizoaffective disorder, HOCM, COPD on 2L NC at night, JUDY, CAD, HTN, and DM2 who was sent in with 2-3 weeks of worsening cough, dyspnea, and wheezing. No chest pain. No leg edema. He was found to be febrile to 102.2 with tachycardia to 117 and tachypnea 24/min. He was noted to be hypoxic with SaO2 90% on RA and started on oxygen. BNP markedly elevated to 1128 and CXR showed diffuse increased bilateral parahilar increased interstitial markings suggestive of interstitial pneumonitis or edema. LA 1.7, PCT 0.08. Influenza A PCR positive. In the ED he was given ceftriaxone, azithromycin, oseltamivir, methylprednisolone, and multiple nebulizer treatments. He also got IV fluid and albumin for soft BP of 91/56. Hospital course: 58yo M intermediate resident with schizoaffective disorder, HOCM, COPD on 2L NC at night, JUDY, CAD, HTN, and DM2 presenting with 2-3 weeks of dyspnea, cough, and wheeze, admitted for hypoxia + COPD exacerbation due to influenza A. Acute hypoxic respiratory failure due to COPD exac due to influenza a infection patient treated with Tamiflu, IV steroids, scheduled and as needed updraft treatment and also treated with IV antibiotic for pneumonitis, blood cultures came back negative ,patient responded well to above treatment he is currently on room air with stable oxygenation, recommend to continue 2 L of oxygen at night , will discharge on prednisone 20 mg daily for 4 more days recommend to continue home inhalers and strongly recommend to abstain from smoking. In regard to history of HOCM , patient was seen by Cardiology, he was started on Lasix and hydrochlorothiazide discontinued he is recommended to continue metoprolol and losartan, an echocardiogram was obtained that showed - Normal left ventricular cavity size, severely increased left ventricular wall thickness. The left ventricular systolic function is hyperdynamic. The visually estimated ejection fraction is >70% , dynamic left ventricular outflow tract obstruction noted Noted to have acute kidney injury on admission hydrochlorothiazide and losartan was held renal function returned to baseline . For hypertension continue metoprolol succinate, losartan and Lasix CAD - continue ASA, atorvastatin, metoprolol succinate DM2 stable blood sugars continue resume home medications. schizoaffective disorder - continue clozapine, lorazepam, trazodone Time Attestation Discharge coordination time: Greater than 30 minutes Quality: Safe Use of Opioids Does Pt have an Active Cancer Diagnosis on the Problem List?: No Quality: Stroke Does the patient have a stroke diagnosis?: No Physical Exam Vital Signs: Vital Signs: Last Vital Signs Temp 97.1 F 10/15/23 11:10 Pulse 79 10/15/23 11:13 Resp 18 10/15/23 11:13 BP 143/93 H 10/15/23 11:10 Pulse Ox 93 10/15/23 11:10 O2 Del Method Room Air 10/15/23 11:10 O2 Flow Rate 2 10/15/23 07:20 Oxygen Flow Rate 6 10/10/23 12:16 BMI result Body Mass Index 38.5 Const: Other: Gen: Awake alert, no acute distress. HEENT: sclera anicteric, moist mucus membranes Neck: supple Lungs: Clear to auscultation no wheeze, no rhonchi, coarse breath sounds Heart: regular, systolic murmur Abd: soft, non-tender, non-distended Ext: no edema Skin: warm/well-perfused Neuro: alert and oriented x3, no focal findings Psych: appropriate affect DS: Data Data Completed and Pending Completed studies during hospitalization [Text1]: Procedures Introduction of Remdesivir Anti-infective into Peripheral Vein, Percutaneous Approach, [employer] 5 (09/25/21) Labs on day of discharge: Laboratory Results - last 24 hr 10/14/23 10/14/23 10/15/23 16:20 20:03 07:22 POC Glucose 131 H 162 H 157 H Preliminary micro results at discharge 10/10/23 12:56 Blood Culture - Preliminary Blood - Venous No growth after 48 hours. 10/10/23 12:49 Blood Culture - Preliminary Blood - Venous No growth after 48 hours. Discharge Plan Discharge Anticipated Discharge Date/Time: 10/15/23 09:59 Patient Disposition: Home, Self-Care Discharge Diagnosis: Acute hypoxic respiratory failure Influenza a Acute COPD exacerbation HOCM Referrals: Residential [Other] - 1 Week Joseph Rebollar MD [Primary Care Provider] - 1 Week Discharge Medications: New furosemide 20 mg Tablet 20 mg PO DAILY Qty: 30 0RF Protocol: Hold for SBP< HOLD for SBP < : 90 prednisone 20 mg tablet 20 mg PO DAILY Qty: 4 0RF Continued alfuzosin 10 mg tablet extended release 24 hr 10 mg PO BEDTIME 90 Days Qty: 90 1RF Rx Instructions: Take before bedtime cholecalciferol (vitamin D3) 25 mcg (1,000 unit) tablet 25 mcg PO DAILY Qty: 90 0RF Tradjenta 5 mg tablet 5 mg PO DAILY Qty: 30 2RF metoprolol succinate 50 mg tablet extended release 24 hr 50 mg PO BID Qty: 60 2RF losartan 25 mg tablet 25 mg PO DAILY 90 Days Qty: 90 1RF docusate sodium 100 mg capsule 1 cap PO BID atorvastatin 20 mg tablet 20 mg PO BEDTIME trazodone 50 mg tablet 50 mg PO BEDTIME clozapine 100 mg tablet 200 mg PO BEDTIME clozapine 25 mg tablet 75 mg PO BEDTIME lorazepam 1 mg tablet 1 mg PO BID@0800,1600 lurasidone 60 mg tablet 60 mg PO BEDTIME lorazepam 0.5 mg Tablet 0.5 mg PO BEDTIME polyethylene glycol 3350 [Miralax] 17 gram/dose Powder 17 g PO DAILY PRN (Reason: Constipation) acetaminophen 500 mg Tablet 1,000 mg PO Q6H PRN (Reason: Pain) testosterone [AndroGel] 1.62 % (20.25 mg/1.25 gram) gel in packet 2 packet TRANSDERMAL DAILY Rx Instructions: apply 20.25 mg /1 packet to max area of EACH upper arm and shoulder alum-mag hydroxide-simeth 200-200-20 mg/5 mL Suspension 10 ml PO TID PRN (Reason: indegestion) Rx Instructions: administer between meals and at bedtime albuterol sulfate 90 mcg/actuation HFA aerosol inhaler 2 puff inhalation Q6H PRN (Reason: Shortness Of Breath Or Wheezing) meloxicam 15 mg tablet 15 mg PO DAILY PRN (Reason: Pain) senna leaf extract [senna] 176 mg/5 mL syrup 15 ml PO BEDTIME aspirin 81 mg Tablet,Delayed Release (Dr/Ec) 81 mg PO DAILY Discontinued hydrochlorothiazide 12.5 mg capsule 12.5 mg PO DAILY Discharge Orders: Discharge Order (Routine); Ordered 10/15/23 Ordered By: Clemente Stover Diet: Diabetic diet Activity on Discharge: As tolerated Stand Alone Forms: Patient Portal Discharge page Care Plan Goals: Influenza a infection improved finished course of Tamiflu COPD exacerbation resolved, take prednisone 20 mg 1 tablet daily for 4 more days Continue home inhalers In regard to hypertrophic obstructive outflow obstruction take Lasix 20 mg daily and stop hydrochlorothiazide Health Concerns: COPD No smoking Plan of Treatment: Outpatient follow-up with primary care physician Assessment: As above
--- NOTE | 2023-10-17 16:42 | P.CDIM_ITS ---
PROVIDER RESPONSE TEXT: To clarify, the appropriate diagnosis supported by the clinical indicators: Diastolic: diastolic acute QUERY TEXT: PHYSICIAN'S DOCUMENTATION REQUEST Date of Query: 10/16/2023 10:18 AM EST Patient Name: Navid Carvalho Admit Date: 10/10/2023 RETROSPECTIVE QUERY Dear Clemente Stover, A review of the medical record indicates additional documentation may be needed. Please review below and update the documentation accordingly. Clinical Indicators: PMH: Congestive heart failure BNP 1128 Cardiology notes: Hypertrophic obstructive cardiomyopathy, hypertension and congestive heart failure He has lung infiltrates and significantly elevated BNP level. IV diuretics Please provide further specificity regarding the most likely type and acuity of CHF you are evaluatin g, treating, or monitoring. Systolic Please specify if Acute, Chronic, or Acute on chronic, or Unable to determine Diastolic Please specify if Acute, Chronic, or Acute on chronic, or Unable to determine Combined Systolic/Diastolic Please specify if Acute, Chronic, or Acute on chronic, or Unable to determine Other (explain) Clinically unable to determine (explain) Thank you, Farideh Bryant, CCS, CDIS Use of terms such as suspected, likely, concern for, or probable (associated with a specific diagnosi s that is being evaluated, monitored, or treated as if it exists) are acceptable and can be coded in the inpatient se tting, when documented at the time of discharge. Please use your independent medical judgment in providing your response. THIS QUERY IS PART OF THE PERMANENT MEDICAL RECORD
== END 2023-10-15 12:59 | disposition home or self-care (01) | DRG 193 ==
LOC: HO.ED 15:34 → HO.EDOVER 16:47 → HO.IMC 10-11 19:55
PROVIDERS: Admitting Provider Family Medicine; Emergency Provider Emergency Medicine; PCP Internal Medicine; Visit Provider Hospitalist
DX: J10.1 Influenza due to other identified influenza virus with other respiratory manifestations (principal); I50.31 Acute diastolic (congestive) heart failure; J96.01 Acute respiratory failure with hypoxia; J44.1 Chronic obstructive pulmonary disease with (acute) exacerbation; N17.9 Acute kidney failure, unspecified; I42.1 Obstructive hypertrophic cardiomyopathy; I11.0 Hypertensive heart disease with heart failure; E11.65 Type 2 diabetes mellitus with hyperglycemia; G47.33 Obstructive sleep apnea (adult) (pediatric); F25.9 Schizoaffective disorder, unspecified; I25.10 Atherosclerotic heart disease of native coronary artery without angina pectoris; F17.210 Nicotine dependence, cigarettes, uncomplicated; Z20.822 Contact with and (suspected) exposure to COVID-19; Z71.6 Tobacco abuse counseling; Z79.82 Long term (current) use of aspirin; Z79.899 Other long term (current) 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
CPT/HCPCS: 0241U; 36415; 71045; 80048; 80076; 81003; 82550; 82803; 82947; 83605; 83880; 84145; 84484; 85025; 85027; 85610; 87040; 93005; 93306; 94640; 99285; J0456; J0696; J1650; J1940; J2920; J2930; P9047; Q9957

== ENCOUNTER → 2023-10-10 12:24 | Outpatient (BNV) | payer OTHER, MEDICAID, SELFPAY | PROVIDERS: Emergency Provider Emergency Medicine; Visit Provider Family Medicine | DX: J96.01 Acute respiratory failure with hypoxia (principal) | CPT/HCPCS: 99223; 99232; 99233; 99239 ==

== ENCOUNTER → 2023-10-10 12:29 | Outpatient (BNV) | payer OTHER, MEDICAID, SELFPAY | PROVIDERS: Admitting Provider Family Medicine; Emergency Provider Emergency Medicine; Visit Provider Internal Medicine Cardiovascular Disease | DX: I51.7 Cardiomegaly (principal); R00.0 Tachycardia, unspecified; R94.31 Abnormal electrocardiogram [ECG] [EKG] | CPT/HCPCS: 93010; 93306 ==

== ENCOUNTER → 2023-10-10 16:27 | Outpatient (BNV) | payer OTHER, MEDICAID, SELFPAY | PROVIDERS: Admitting Provider Family Medicine; Emergency Provider Emergency Medicine; Visit Provider Internal Medicine Cardiovascular Disease | DX: J10.1 Influenza due to other identified influenza virus with other respiratory manifestations (principal); J98.4 Other disorders of lung; I42.1 Obstructive hypertrophic cardiomyopathy; I50.9 Heart failure, unspecified | CPT/HCPCS: 99223 ==

== ENCOUNTER 2023-11-02 23:11 | Inpatient (IN) | payer OTHER, SELFPAY ==
--- NOTE | ~2023-11-02 | XR_ITS ---
EXAMINATION: XR CHEST CLINICAL INFORMATION: Shortness of breath COMPARISON: 10/10/2023 TECHNIQUE: Frontal view of the chest was obtained. FINDINGS: The lungs appear mildly hypoinflated. There is improved aeration in the bilateral perihilar regions compared to prior, with some residual prominence of the central vasculature. No appreciable pneumothorax or significant pleural effusion. Cardiac silhouette remains prominent for technique. No acute osseous findings are seen. XR/XR chest 1V IMPRESSION: Interval improvement in aeration since 10/10/2023 suggesting improved edema, with some residual prominence of the central vasculature.
--- NOTE | 2023-11-02 23:19 | ED_ITS ---
HPI - SOB/Dyspnea General Chief Complaint: Dyspnea Stated Complaint: SOB,RECENT PNA PER EMS Time Seen by Provider: 11/02/23 23:19 Source: patient and EMS Mode of arrival: EMS Limitations: no limitations History of Present Illness HPI Narrative: 58yo Male a residential resident with schizoaffective disorder, HOCM, COPD on 2L NC at night, JUDY, CAD, HTN, and DM2 , admitted for hypoxia + COPD exacerbation due to influenza A. Discharged on 10/15/2023 came here for increased shortness of breath and cough since yesterday no fever no chills saturating 86% on 2 L of oxygen with audible rales does have leg edema for last few days Related Data Home Medications Medication Instructions Recorded Confirmed docusate sodium 100 mg capsule 1 cap PO BID 08/18/22 10/10/23 acetaminophen 500 mg tablet 1,000 mg PO Q6H PRN Pain 04/20/23 10/10/23 atorvastatin 20 mg tablet 20 mg PO BEDTIME 04/20/23 11/03/23 clozapine 100 mg tablet 200 mg PO BEDTIME 04/20/23 11/03/23 clozapine 25 mg tablet 75 mg PO BEDTIME 04/20/23 10/10/23 lorazepam 0.5 mg tablet 0.5 mg PO BEDTIME 04/20/23 10/10/23 lorazepam 1 mg tablet 1 mg PO BID@0800,1600 04/20/23 11/03/23 lurasidone 60 mg tablet 60 mg PO BEDTIME 04/20/23 10/10/23 polyethylene glycol 3350 17 17 g PO DAILY PRN Constipation 04/20/23 10/10/23 gram/dose oral powder (Miralax) trazodone 50 mg tablet 50 mg PO BEDTIME 04/20/23 10/10/23 albuterol sulfate 90 mcg/actuation 2 puff inhalation Q6H PRN 10/10/23 11/03/23 aerosol inhaler Shortness Of Breath Or Wheezing aluminum-mag hydroxide-simethicone 10 ml PO TID PRN indegestion 10/10/23 10/10/23 200 mg-200 mg-20 mg/5 mL oral susp aspirin 81 mg tablet,delayed 81 mg PO DAILY 10/10/23 11/03/23 release meloxicam 15 mg tablet 15 mg PO DAILY PRN Pain 10/10/23 10/10/23 senna leaf extract 176 mg/5 mL 15 ml PO BEDTIME constipation 10/10/23 10/10/23 oral syrup (senna) testosterone 1.62 % (20.25 mg/1.25 2 packet transdermal DAILY 10/10/23 10/10/23 gram) transdermal gel packet (AndroGel) linagliptin 5 mg tablet (Tradjenta) 5 mg PO DAILY 11/03/23 11/03/23 losartan 25 mg tablet 25 mg PO DAILY 11/03/23 11/03/23 lurasidone 60 mg tablet 60 mg PO DAILY 11/03/23 11/03/23 trazodone 50 mg tablet 50 mg PO BEDTIME 11/03/23 11/03/23 Previous Rx's Medication Instructions Recorded alfuzosin 10 mg tablet,extended 10 mg PO BEDTIME 90 days #90 tabs 01/03/23 release 24 hr cholecalciferol (vitamin D3) 25 25 mcg PO DAILY #90 tabs 08/06/23 mcg (1,000 unit) tablet losartan 25 mg tablet 25 mg PO DAILY 90 days #90 tabs 08/20/23 furosemide 20 mg tablet 20 mg PO DAILY #30 tabs 10/15/23 prednisone 20 mg tablet 20 mg PO DAILY #4 tabs 10/15/23 linagliptin 5 mg tablet (Tradjenta) 5 mg PO DAILY #30 tabs 10/24/23 metoprolol succinate 50 mg 50 mg PO BID #60 tabs 10/24/23 tablet,extended release 24 hr Allergies Allergy/AdvReac Type Severity Reaction Status Date / Time lithium [[place]] Allergy Severe TOXICITY Verified 11/02/23 23:57 thiothixene Allergy Severe SWELLING Verified 11/02/23 23:57 barium sulfate Allergy Intermediate NAUSEA & Verified 11/02/23 23:57 [BARIUM SULFATE] VOMITING haloperidol Allergy Intermediate MUSCLE Verified 11/02/23 23:57 TENSION IN LEGS benztropine Allergy Unknown benztropine Verified 11/02/23 23:57 mesylate- unknown diphenhydramine Allergy Unknown urinary Verified 11/02/23 23:57 [From Benadryl] retention fluphenazine Allergy Unknown UNKNOWN Verified 11/02/23 23:57 gabapentin [From NEURONTIN] Allergy Unknown UNKNOWN Verified 11/02/23 23:57 prolixen Allergy Unknown Unknown Uncoded 01/26/24 23:57 Review of Systems 2 Review of Systems: Yes all other systems are reviewed and are negative [facility] Past Medical History Medical History COVID-19 Thought disorder Nocturnal hypoxemia Constipation COPD (chronic obstructive pulmonary disease) JUDY (obstructive sleep apnea) Smoker BPH (benign prostatic hyperplasia) Diabetes mellitus Obesity (BMI 30-39.9) Pure hypercholesterolemia Prolonged QT interval Essential hypertension HOCM (hypertrophic obstructive cardiomyopathy) Aggression Hypertension Coronary artery disease CHF (congestive heart failure) Cardiac arrhythmia Myocardial infarction Schizoaffective disorder Surgical History History of ankle surgery History of intestinal surgery History of transurethral resection of prostate Family History Family History Father Medical history unknown Mother Medical history unknown Sister Alive and well Social History Social History Household Members: Other Household Members Other:: correction Housing: Other Housing Other:: correction Do you presently have visiting nurse or other home services: Yes (Resides at [facility]) Alcohol intake: never Comment: camera on. Patient Tobacco Use Status: Current everyday Tobacco user Tobacco use type: Cigarette Cigarettes Per Day: 5 Smoked in Last 30 Days: No Second Hand Smoke Exposure: No Use of substances other than those prescribed or required for medical reasons: No Substance Use Type: Unknown Advance Directives: No Advance Directives Information Provided: Yes service: No Current occupational status: disabled Sexual orientation: Did not discuss. Cognitive needs: Yes Hearing needs: No Vision needs: Yes Physical Exam 2 Vital Signs: Vital Signs: Last Vital Signs Temp 98.0 F 11/03/23 05:07 Pulse 101 H 11/03/23 05:07 Resp 22 H 11/03/23 05:07 BP 96/63 11/03/23 05:07 Pulse Ox 96 11/03/23 05:07 O2 Del Method Nasal Cannula 11/03/23 05:07 O2 Flow Rate 4 11/03/23 05:07 FiO2 24 11/02/23 23:58 BMI result Body Mass Index 39.1 Appearance: Alert. Oriented X3. Moderate respiratory distress. With audible wheezing Eyes: No pallor or icterus ENT: Pharynx normal. Oral Mucosa moist Neck: Normal inspection. Neck supple. CVS: Normal heart rate and rhythm. Pulses normal. Respiratory: No respiratory distress. Equal air entry bilateral, no wheezing/rales/rhonchi Abdomen: Soft and nontender. Bowel sounds are present, no mass palpable, no CVA tenderness Skin: Skin warm and dry. Normal skin color. Normal skin turgor. Extremities:2+lower extremity edema. No calf tenderness Neuro: Oriented X 3. No motor deficit. No sensory deficit.No cerebellar signs , cranial nerves II-XII intact Medications Administered Generic Name Dose Route Start Last Admin Trade Name Freq PRN Reason Stop Dose Admin Sodium Chloride 500 mls @ 150 mls/hr 11/03/23 05:45 11/03/23 05:50 Ns IV 11/03/23 07:44 150 mls/hr .[id number] OZZY Administration Discontinued Medications Generic Name Dose Route Start Last Admin Trade Name Freq PRN Reason Stop Dose Admin Dexamethasone Sodium Phosphate 6 mg 11/03/23 01:16 11/03/23 01:48 Dexamethasone Sod Phosphate 4 Mg/Ml Vial IVPUSH 11/03/23 01:17 6 mg ONCE ONE Administration Furosemide 20 mg 11/02/23 23:31 11/03/23 00:18 Furosemide 20 Mg/2 Ml Vial IVPUSH 11/02/23 23:32 20 mg ONCE ONE Administration Protocol Ceftriaxone Sodium 1 gm/ 50 mls @ 100 mls/hr 11/03/23 00:12 11/03/23 02:18 Sodium Chloride IV 11/03/23 00:41 Infused ONCE ONE Infusion Vancomycin HCl 2,000 mg in 520 mls @ 250 mls/hr 11/03/23 04:25 11/03/23 05:42 Vancomycin/Ns IV 11/03/23 06:29 250 mls/hr ONCE ONE Administration Levalbuterol HCl 3.75 mg 11/02/23 23:31 11/02/23 23:43 Levalbuterol Hcl 1.25 Mg/3 Ml Vial.Neb INHALE 11/02/23 23:32 3.75 mg ONCE ONE Administration Medical Decision Making Medical Decision Making MDM Narrative: 58 years old with multiple comorbid condition with CHF HOCM COPD nocturnal hypoxemia recent influenza A comes here for increased shortness of breath and cough for last 2 days noticed to be hypoxic saturating 86% on 2 L initially patient required CPAP to improve his oxygenation now saturating 94% on 2 L workup showed patient has a COVID 19 positive with CHF with JUHI will admit for supportive treatment patient has no bacterial infection elevated lactic acid is from JUHI and hypoxemia symptoms from COVID 19 infection along with CHF Differential Diagnosis Differential Diagnoses: The differential diagnosis associated with the presentation includes Acute respiratory failure/pneumonia/CHF/viral pneumonia Admission/Observation Consideration of admission/observation: Escalation of care including admission/observation considered Consult Healthcare Provider Management of the patient was discussed with: Hospitalist Lab Data [facility] Lab Attestation statement: I reviewed the patient's lab results. 11/03/23 00:15 11/03/23 00:15 Labs: Lab Results 11/03/23 11/03/23 11/03/23 Range/Units 00:00 00:15 00:16 WBC 11.1 H (4.8-10.8) X10*3/uL RBC 4.02 L (4.60-5.80) X10*6/uL Hgb 11.1 L (14.0-18.0) g/dl Hct 34.7 L (42.0-52.0) % MCV 86.3 (80.0-98.0) fL MCH 27.6 (27.0-33.0) pg MCHC 32.0 (31.0-36.0) g/dl RDW 16.3 H (11.0-16.0) % Plt Count 113 L (160-400) X10*3/uL MPV 11.8 (9.4-12.4) fL Immature Gran % (Auto) 0.3 (0.0-0.4) % Neut % (Auto) 87.3 H (45-73) % Lymph % (Auto) 5.2 L (20-40) % [place] % (Auto) 6.6 (2-11) % Eos % (Auto) 0.3 (0-4) % Baso % (Auto) 0.3 (0-2) % Lymph # (Auto) 0.6 L (1.2-4.9) X10*3/uL [place] # (Auto) 0.7 (0.1-1.2) X10*3/uL Eos # (Auto) 0.0 (0.0-0.4) X10*3/uL Baso # (Auto) 0.0 (0.0-0.2) X10*3/uL Abs Immat Gran (auto) 0.03 (0.00-0.03) X10*3/uL Absolute Neuts (auto) 9.7 H (2.0-8.3) x10*3/uL Absolute Nucleated RBC 0.000 (0.0-0.012) X10*3/uL Nucleated RBC % (auto) 0.0 (0.0-0.2) /100WBC VBG pH (7.32-7.43) VBG pCO2 mmHg VBG pO2 mmHg VBG HCO3 (22-26) mmol/L VBG O2 Saturation % VBG Base Excess mmol/L Sodium 145 (135-145) mmol/L Potassium 4.4 (3.3-5.1) mmol/L Chloride 114 H (96-108) mmol/L Carbon Dioxide 19 L (22-29) mmol/L Anion Gap 16 (12-20) BUN 20 H (9-16) mg/dL Creatinine 1.51 H (0.5-1.4) mg/dL Estim Creat Clear Calc 63.3 Estimated GFR 48 Random Glucose 255 H (60-115) mg/dL Lactic Acid 2.5 H* (0.5-2.0) mmol/L Lactic Acid F/U @ 2Hr (0.5-2.0) mmol/L Calcium 8.7 (8.4-10.2) mg/dL Total Bilirubin 0.4 (0.0-1.0) mg/dL AST 18 (5-37) U/L ALT 19 (0-40) U/L Alkaline Phosphatase 64 (39-117) U/L Troponin I High Sens 29.3 (<3.5-35.0) ng/L B-Natriuretic Peptide 848 H (<100) pg/mL Total Protein 6.7 (6.5-8.0) g/dL Albumin 3.6 (3.5-5.0) g/dL Influenza Type A (PCR) NEGATIVE (Negative) Influenza Type B (PCR) NEGATIVE (Negative) RSV RNA Qual (PCR) NEGATIVE (Negative) SARS-CoV-2 RNA (RT-PCR) POSITIVE A (Negative) 11/03/23 11/03/23 Range/Units 02:24 02:28 WBC (4.8-10.8) X10*3/uL RBC (4.60-5.80) X10*6/uL Hgb (14.0-18.0) g/dl Hct (42.0-52.0) % MCV (80.0-98.0) fL MCH (27.0-33.0) pg MCHC (31.0-36.0) g/dl RDW (11.0-16.0) % Plt Count (160-400) X10*3/uL MPV (9.4-12.4) fL Immature Gran % (Auto) (0.0-0.4) % Neut % (Auto) (45-73) % Lymph % (Auto) (20-40) % [place] % (Auto) (2-11) % Eos % (Auto) (0-4) % Baso % (Auto) (0-2) % Lymph # (Auto) (1.2-4.9) X10*3/uL [place] # (Auto) (0.1-1.2) X10*3/uL Eos # (Auto) (0.0-0.4) X10*3/uL Baso # (Auto) (0.0-0.2) X10*3/uL Abs Immat Gran (auto) (0.00-0.03) X10*3/uL Absolute Neuts (auto) (2.0-8.3) x10*3/uL Absolute Nucleated RBC (0.0-0.012) X10*3/uL Nucleated RBC % (auto) (0.0-0.2) /100WBC VBG pH 7.46 H (7.32-7.43) VBG pCO2 33 mmHg VBG pO2 147 mmHg VBG HCO3 23 (22-26) mmol/L VBG O2 Saturation 100.0 % VBG Base Excess 0.7 mmol/L Sodium (135-145) mmol/L Potassium (3.3-5.1) mmol/L Chloride (96-108) mmol/L Carbon Dioxide (22-29) mmol/L Anion Gap (12-20) BUN (9-16) mg/dL Creatinine (0.5-1.4) mg/dL Estim Creat Clear Calc Estimated GFR Random Glucose (60-115) mg/dL Lactic Acid (0.5-2.0) mmol/L Lactic Acid F/U @ 2Hr 2.5 H* (0.5-2.0) mmol/L Calcium (8.4-10.2) mg/dL Total Bilirubin (0.0-1.0) mg/dL AST (5-37) U/L ALT (0-40) U/L Alkaline Phosphatase (39-117) U/L Troponin I High Sens (<3.5-35.0) ng/L B-Natriuretic Peptide (<100) pg/mL Total Protein (6.5-8.0) g/dL Albumin (3.5-5.0) g/dL Influenza Type A (PCR) (Negative) Influenza Type B (PCR) (Negative) RSV RNA Qual (PCR) (Negative) SARS-CoV-2 RNA (RT-PCR) (Negative) Independent Interpretation I performed an independent interpretation of an: EKG and Plain X-Ray Interpretation: Sinus tachycardia with heart rate 112 beats per minute LVH with strain pattern no acute ST elevation no change from previous EKG on 10/10 Critical Care Time Critical Care Time Critical Care Time: Yes Total Critical Care Time: 60 Attestation: The patient was critically ill with a high probability of imminent or life threatening deterioration. I spent greater than ?65??minutes of discontinuous time evaluating the patient,delivering critical care at the bedside, discussing and evaluating pertinent data with consultants. Critical care time does not include time spent performing separately billable procedures or teaching. Total time spent performing critical care was 60???minutes. Discharge Plan Discharge Clinical Impression: COVID-19, JUHI (acute kidney injury), Congestive heart failure, Acute and chronic respiratory failure with hypoxia Patient Disposition: Admitted As Inpatient
--- NOTE | 2023-11-02 23:24 | ECG_ITS ---
Test Reason : SOB Blood Pressure : / mmHG Vent. Rate : 112 BPM Atrial Rate : 112 BPM P-R Int : 170 ms QRS Dur : 104 ms QT Int : 370 ms P-R-T Axes : 093 027 174 degrees QTc Int : 505 ms Sinus tachycardia Possible Left atrial enlargement Left ventricular hypertrophy with repolarization abnormality ( Sokolow-Vences ) Abnormal ECG When compared with ECG of 10-OCT-2023 12:33, No significant change was found Referred By: Jose Rowan Electronically Signed By:Javier Bah
--- NOTE | 2023-11-02 23:41 | MHC.EDTECH ---
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
[2023-11-02] MEDS: levalbuterol HCL 1.25 MG/3 ML VIAL.NEB 3.75 MG INHALE (23:43)
[2023-11-02 23:44] VITALS: PULSE 107; RESP 27; O2SAT 96
[2023-11-02 23:58] VITALS: BP 102/59; BP 111/75; PULSE 106; PULSE 119; RESP 24; TEMP 37.5; O2SAT 94; BMI 39.1
[2023-11-03] VITALS (10 sets, daily range): BP systolic 93–153; BP diastolic 48–83; PULSE 90–101; RESP 16–26; TEMP 36.3–37.2; O2SAT 93–97
[2023-11-03] MEDS: Furosemide 20 MG/2 ML VIAL IVPUSH (00:18)
[2023-11-03 00:20] LABS: MANUAL DIFF FLAG NO
[2023-11-03 00:21] LABS: Basophils Percent Auto 0.3 % (0-2); Eosinophils Percent Auto 0.3 % (0-4); Hematocrit 34.7 % (42.0-52.0); Hemoglobin 11.1 g/dl (14.0-18.0); Imm Gran Abs Auto 0.03 X10*3/uL (0.00-0.03); Imm Gran Pct Auto 0.3 % (0.0-0.4); Lymphocytes Absolute Auto 0.6 X10*3/uL (1.2-4.9); Lymphocytes Percent Auto 5.2 % (20-40); Mean Corpuscular Hemoglobin 27.6 pg (27.0-33.0); Mean Corpuscular Volume 86.3 fL (80.0-98.0); Mean Platelet Volume 11.8 fL (9.4-12.4); Monocytes Absolute Auto 0.7 X10*3/uL (0.1-1.2); Monocytes Percent Auto 6.6 % (2-11); Neutrophils Absolute Auto 9.7 x10*3/uL (2.0-8.3); Neutrophils Percent Auto 87.3 % (45-73); Platelet Count 113 X10*3/uL (160-400); Red Blood Count 4.02 X10*6/uL (4.60-5.80); Red Cell Distribution Width 16.3 % (11.0-16.0); White Blood Count 11.1 X10*3/uL (4.8-10.8)
[2023-11-03] MEDS: cefTRIAXone sodium 1 GM in 0.9 % Sodium Chloride 50 ML IV (00:25)
[2023-11-03 00:38] LABS: Alanine Aminotransferase 19 U/L (0-40); Albumin Level 3.6 g/dL (3.5-5.0); Alkaline Phosphatase 64 U/L (39-117); Anion Gap 16 (12-20); Aspartate Amino Transferase 18 U/L (5-37); Bilirubin Total 0.4 mg/dL (0.0-1.0); Blood Urea Nitrogen 20 mg/dL (9-16); Calcium 8.7 mg/dL (8.4-10.2); Carbon Dioxide 19 mmol/L (22-29); Chloride 114 mmol/L (96-108); Creatinine Clr Calc Pharmacy 63.3; Estimated Glomerular Filt Rate 48; Glucose Random 255 mg/dL (60-115); Potassium 4.4 mmol/L (3.3-5.1); Sodium 145 mmol/L (135-145); Total Protein 6.7 g/dL (6.5-8.0)
[2023-11-03 00:42] LABS: B Type Natriuretic Peptide 848 pg/mL (<100)
[2023-11-03 00:43] LABS: Troponin-I High Sensitivity 29.3 ng/L (<3.5-35.0)
[2023-11-03 00:46] LABS: Lactic Acid 2.5 mmol/L (0.5-2.0)
[2023-11-03 00:47] LABS: Influenza A PCR NEGATIVE (Negative); Influenza B PCR NEGATIVE (Negative); Resp Syncy Virus RNA Qual PCR NEGATIVE (Negative); SARS COV2 PCR INHOUSE POSITIVE (Negative)
--- NOTE | 2023-11-03 00:51 | MHC.EDTECH ---
PATIENT BLOOD DRAWN ,INCLUDING BOTH SETS OF BLOOD CULTURE AND LACTIC ACID ,RSV/COVID SWAB COLLECTED ALL SENT TO LAB ,PATIENT RESTING QUIETLY IN BED .
[2023-11-03] MEDS: dexAMETHasone sod phosphate 4 MG/ML VIAL 6 MG IVPUSH (01:48)
[2023-11-03 02:18] LABS: Reflex Lactate? Lactic Acid Added
--- NOTE | 2023-11-03 02:30 | MHC.EDTECH ---
liliana blood gas and repeated lactic drawn and sent to lab .
[2023-11-03 02:35] LABS: Venous Blood Gas Refer to POC result
[2023-11-03 02:36] LABS: VBG Base Excess 0.7 mmol/L; VBG HCO3 23 mmol/L (22-26); VBG pCO2 33 mmHg; VBG pH 7.46 (7.32-7.43); VBG pO2 147 mmHg
[2023-11-03 03:00] LABS: ~Lactic Acid-LAB USE ONLY 2.5 mmol/L (0.5-2.0)
--- NOTE | 2023-11-03 03:59 | P.HPHOSP_ITS ---
History of Present Illness Date of Service: 11/03/23 Attending physician on admission: Diego Booth Chief Complaint: Shortness of breath. Navid Carvalho this is a 58 years old man with past medical history significant for HOCM, COPD -on home oxygen 2 L/min NC, obesity, obstructive sleep apnea, coronary artery disease, type 2 diabetes mellitus, hypertension and schizoaffective disorder was brought to the emergency department for shortness of breath evaluation. HPI was mostly obtained from emergency provider and medical record as the patient is a very vague historian and preferred to sleep. He has been having worsening shortness of breath since yesterday associated with cough. No fevers chills were reported. He was low oxygen saturation of 86% on 2 liters/minutes of supplemental oxygen. His legs are also swollen. Patient was recently discharged from hospital (Oct 25) after he was hospitalized with diagnosis of hypoxic respiratory failure secondary to influenza A infection. He was treated with Tamiflu, nebs and IV steroids. He also received treatment with empiric IV antibiotic therapy. ED tx: Furosemide 20 mg IV, Xopenex 3.75 mg inhaled, ceftriaxone 1 g IV, dexamethasone 6 mg Review of Systems 2 Review of Systems: Yes Unobtainable due to mental condition [facility] Medical History COVID-19 Thought disorder Nocturnal hypoxemia Constipation COPD (chronic obstructive pulmonary disease) JUDY (obstructive sleep apnea) Smoker BPH (benign prostatic hyperplasia) Diabetes mellitus Obesity (BMI 30-39.9) Pure hypercholesterolemia Prolonged QT interval Essential hypertension HOCM (hypertrophic obstructive cardiomyopathy) Aggression Hypertension Coronary artery disease CHF (congestive heart failure) Cardiac arrhythmia Myocardial infarction Schizoaffective disorder Family History Father Medical history unknown Mother Medical history unknown Sister Alive and well Surgical History History of ankle surgery History of intestinal surgery History of transurethral resection of prostate Social History Household Members: Other Household Members Other:: correction Housing: Other Housing Other:: correction Do you presently have visiting nurse or other home services: Yes (Resides at [facility]) Alcohol intake: never Comment: camera on. Patient Tobacco Use Status: Current everyday Tobacco user Tobacco use type: Cigarette Cigarettes Per Day: 5 Smoked in Last 30 Days: No Second Hand Smoke Exposure: No Use of substances other than those prescribed or required for medical reasons: No Substance Use Type: Unknown Advance Directives: No Advance Directives Information Provided: Yes service: No Current occupational status: disabled Sexual orientation: Did not discuss. Cognitive needs: Yes Hearing needs: No Vision needs: Yes Meds Allergies Allergy/AdvReac Type Severity Reaction Status Date / Time lithium [[place]] Allergy Severe TOXICITY Verified 11/02/23 23:57 thiothixene Allergy Severe SWELLING Verified 11/02/23 23:57 barium sulfate Allergy Intermediate NAUSEA & Verified 11/02/23 23:57 [BARIUM SULFATE] VOMITING haloperidol Allergy Intermediate MUSCLE Verified 11/02/23 23:57 TENSION IN LEGS benztropine Allergy Unknown benztropine Verified 11/02/23 23:57 mesylate- unknown diphenhydramine Allergy Unknown urinary Verified 11/02/23 23:57 [From Benadryl] retention fluphenazine Allergy Unknown UNKNOWN Verified 11/02/23 23:57 gabapentin [From NEURONTIN] Allergy Unknown UNKNOWN Verified 11/02/23 23:57 prolixen Allergy Unknown Unknown Uncoded 11/02/23 23:57 Active Medications: Current Medications Acetaminophen (Acetaminophen 325 Mg Tablet) 650 mg PO Q6H PRN PRN Reason: Pain, Mild (Pain Scale 1-3) Dexamethasone Sodium Phosphate (Dexamethasone Sod Phosphate 4 Mg/Ml Vial) 6 mg IVPUSH DAILY ONE Stop: 11/03/23 09:01 Dextrose (Dextrose 50 % 25 Gm/50 Ml Syringe) 25 gm IVPUSH Q15M PRN; Protocol PRN Reason: per Hypoglycemia Standing Ord. Glucose (Glucose Gel 15 Gm Gel..Gram.) 15 gm PO Q15M PRN; Protocol PRN Reason: per Hypoglycemia Standing Ord. Heparin Sodium (Porcine) (Heparin Sodium,Porcine 5,000 Unit/Ml Vial) 5,000 unit SUBCUT Q8H [facility] Insulin Human Lispro (Insulin Lispro 100 Unit/Ml 3 Ml Vial) 0 unit SUBCUT QIDACHS [facility]; Protocol Sodium Chloride (0.9 % Sodium Chloride Flush 3 Ml Syringe) [facility] Medications Medication Instructions Recorded Confirmed Last Taken Type docusate sodium 100 mg capsule 1 cap PO BID 08/18/22 10/10/23 10/09/23 History acetaminophen 500 mg tablet 1,000 mg PO Q6H PRN Pain 04/20/23 10/10/23 Unknown History atorvastatin 20 mg tablet 20 mg PO BEDTIME 04/20/23 10/10/23 10/09/23 History clozapine 100 mg tablet 200 mg PO BEDTIME 04/20/23 10/10/23 10/09/23 History clozapine 25 mg tablet 75 mg PO BEDTIME 04/20/23 10/10/23 10/09/23 History lorazepam 0.5 mg tablet 0.5 mg PO BEDTIME 04/20/23 10/10/23 10/09/23 History lorazepam 1 mg tablet 1 mg PO BID@0800,1600 04/20/23 10/10/23 10/09/23 History lurasidone 60 mg tablet 60 mg PO BEDTIME 04/20/23 10/10/23 10/09/23 History polyethylene glycol 3350 17 17 g PO DAILY PRN Constipation 04/20/23 10/10/23 Unknown History gram/dose oral powder (Miralax) trazodone 50 mg tablet 50 mg PO BEDTIME 04/20/23 10/10/23 10/09/23 History albuterol sulfate 90 mcg/actuation 2 puff inhalation Q6H PRN 10/10/23 10/10/23 Unknown History aerosol inhaler Shortness Of Breath Or Wheezing aluminum-mag hydroxide-simethicone 10 ml PO TID PRN indegestion 10/10/23 10/10/23 Unknown History 200 mg-200 mg-20 mg/5 mL oral susp aspirin 81 mg tablet,delayed 81 mg PO DAILY 10/10/23 10/10/23 10/09/23 History release meloxicam 15 mg tablet 15 mg PO DAILY PRN Pain 10/10/23 10/10/23 Unknown History senna leaf extract 176 mg/5 mL 15 ml PO BEDTIME constipation 10/10/23 10/10/23 10/09/23 History oral syrup (senna) testosterone 1.62 % (20.25 mg/1.25 2 packet transdermal DAILY 10/10/23 10/10/23 10/09/23 History gram) transdermal gel packet (AndroGel) Physical Exam 2 Vital Signs and Narrative: Vital Signs: Last Vital Signs Temp 98.9 F 11/03/23 02:00 Pulse 98 11/03/23 02:00 Resp 24 H 11/03/23 02:00 BP 93/52 L 11/03/23 02:00 Pulse Ox 94 11/03/23 02:00 O2 Del Method Nasal Cannula 11/03/23 02:00 FiO2 24 11/02/23 23:58 BMI result Body Mass Index 39.1 Constitutional - Sleeping. Easy to arouse. Acutely ill. Obese. Nasal cannula in place. HEENT - Normocephalic. Atraumatic head. Dry oral mucosa. Heart - distant sounds. Respiratory - Normal lung expansion, poor respiratory effort, No respiratory distress, tachypneic. Decreased breath sound bilaterally. No wheezing Gastrointestinal - NT / ND; +BS; No rebound or guarding Extremities - edema. Musculoskeletal - Normal inspection, normal ROM Skin - Warm/Dry Neurological - sleeping. Easy to arouse. No focal weakness grossly noted Psychological - Appropriate affect Results Labs 11/03/23 00:15 11/03/23 00:15 Labs: Laboratory Results - last 24 hr 11/03/23 11/03/23 11/03/23 00:00 00:15 02:24 MCV 86.3 MCH 27.6 MCHC 32.0 RDW 16.3 H Plt Count 113 L MPV 11.8 Immature Gran % (Auto) 0.3 Neut % (Auto) 87.3 H Lymph % (Auto) 5.2 L [place] % (Auto) 6.6 Eos % (Auto) 0.3 Baso % (Auto) 0.3 Lymph # (Auto) 0.6 L [place] # (Auto) 0.7 Eos # (Auto) 0.0 Baso # (Auto) 0.0 Abs Immat Gran (auto) 0.03 Absolute Neuts (auto) 9.7 H Absolute Nucleated RBC 0.000 Nucleated RBC % (auto) 0.0 VBG pH VBG pCO2 VBG pO2 VBG HCO3 VBG O2 Saturation VBG Base Excess Anion Gap 16 Estim Creat Clear Calc 63.3 Estimated GFR 48 Random Glucose 255 H Lactic Acid 2.5 H* Lactic Acid F/U @ 2Hr 2.5 H* Calcium 8.7 Total Bilirubin 0.4 AST 18 ALT 19 Alkaline Phosphatase 64 B-Natriuretic Peptide 848 H Total Protein 6.7 Albumin 3.6 Influenza Type A (PCR) NEGATIVE Influenza Type B (PCR) NEGATIVE RSV RNA Qual (PCR) NEGATIVE SARS-CoV-2 RNA (RT-PCR) POSITIVE A 11/03/23 02:28 MCV MCH MCHC RDW Plt Count MPV Immature Gran % (Auto) Neut % (Auto) Lymph % (Auto) [place] % (Auto) Eos % (Auto) Baso % (Auto) Lymph # (Auto) [place] # (Auto) Eos # (Auto) Baso # (Auto) Abs Immat Gran (auto) Absolute Neuts (auto) Absolute Nucleated RBC Nucleated RBC % (auto) VBG pH 7.46 H VBG pCO2 33 VBG pO2 147 VBG HCO3 23 VBG O2 Saturation 100.0 VBG Base Excess 0.7 Anion Gap Estim Creat Clear Calc Estimated GFR Random Glucose Lactic Acid Lactic Acid F/U @ 2Hr Calcium Total Bilirubin AST ALT Alkaline Phosphatase B-Natriuretic Peptide Total Protein Albumin Influenza Type A (PCR) Influenza Type B (PCR) RSV RNA Qual (PCR) SARS-CoV-2 RNA (RT-PCR) Imaging Radiologist's Impressions: Impressions Chest X-Ray 11/03/23 00:11 IMPRESSION: Interval improvement in aeration since 10/10/2023 suggesting improved edema, with some residual prominence of the central vasculature. Assessment and Plan (1) Acute and chronic respiratory failure with hypoxia: Status: Acute (2) COVID-19: Status: Acute (3) JUHI (acute kidney injury): Status: Acute Plan Navid Carvalho this is a 58 years old man admitted with: * Acute on chronic respiratory failure likely acute exacerbation of chronic obstructive pulmonary disease secondary to COVID-19 infection. Admit to hospitalist service. Telemetry. Continue supplemental oxygen to keep oxygen saturation > 90%. Bronchodilator therapy. Continue treatment with dexamethasone 6 mg IV daily. Will consult pharmacy for remdesivir initiation. * SIRS criteria: Heart rate 96, respiratory rate 24. Possible secondary to above. There is lactic acidosis Will start empiric IV antibiotic therapy with vancomycin and cefepime (recent hospitalization). Gently hydration (250 ml NS) only as the patient has interstitial edema elevated BNP (?CHF). Blood cultures were obtained -will follow results. Continue to monitor lactic acid. * Metabolic acidosis. Likely secondary to lactic acidosis. Gentle IV fluids. Continue to monitor lactic acid. * Acute kidney injury. Hold losartan and furosemide. Continue to monitor renal function. Avoid nephrotoxic agents. HCTZ was discontinued during last hospitalization. * Essential hypertension. Current blood pressures are soft.z Hold anti-HTN meds: Metoprolol and losartan. * Type 2 diabetes mellitus. Blood glucose monitoring before meals at bedtime. Hold linagliptin. Diabetic diet. Start Lantus. Insulin sliding scale for now. * Schizoaffective disorder. Continue clozapine. Hold lorazepam and trazodone for now due to acute respiratory failure. * HOCM. Avoid diuretics. * Obstructive sleep apnea. CPAP bedtime. * Coronary artery disease. Continue aspirin and atorvastatin. Metoprolol is on hold due to soft blood pressures. * Anemia, chronic. Stable. Continue to monitor hemoglobin. * BPH. Hold alfuzosin (soft BP). * Hyperlipidemia. Continue statin DVT prophylaxis: Heparin subcut Code status: Full Patient will need hospitalization for at least 2 midnight for acute on chronic respiratory failure treatment secondary to COVID-19 infection with supplemental oxygen bronchodilator therapy, IV steroids and remdesivir. Quality Stroke Does the patient have a stroke diagnosis?: No VTE Prior VTE?: No VTE Risk Level:: Medical - moderate - high VTE Device Contraindication: Treatment Not Indicated VTE Drug Contraindication: N/A - Med Ordered
[2023-11-03] MEDS: 0.9 % Sodium Chloride 500 ML 150 ML IV (05:50)
--- NOTE | 2023-11-03 06:35 | PC.NURSE ---
Pt brought in by ambulance, per EMS pt was discharged from [facility] recently after being treated with pneumonia. EMS reports pt was 86% on home o2 @3L, placed on 10L face mask, given albuterol 2.5mg and improved to 94%. Pt had coarse crackles throughout lungs, unable to speak more than a couple words at time. Pt sats 86% on room air. 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 Pt placed on CPAP, given lasix and decaron per order. Pt conditioned improved, pt breathing unlabored, RR20-24, HR 90's. Pt tken off cpap by respiratory and on 4L NC ckie16-23%.
--- NOTE | 2023-11-03 06:44 | PHA.PROG ---
Admission Date/Time: November 03, 2023 03:48 Indication: SEPSIS Weight in k.3 kg Adjusted body weight in K.98 [place] body weight in K.1 Obesity Dosing Indication % IBW:39.1 Serum Creatinine - Last 168 Hours 11/03/23 00:15 Creatinine 1.51 H Estimated CrCl and GFR - Last 168 Hours 11/03/23 00:15 Estim Creat Clear Calc 63.3 Estimated GFR 48 Vancomycin Loading Dose: 2000 MG Current Vancomycin Dosing Regimen: 750 Q12 Vancomycin Monitoring using AUC goal of 400 - 600 range with trough as surrogate marker:438/15.3 Date and Time for next Vancomycin Level to be drawn: 11/04 @1600 Pharmacist Comments on Vancomycin Plan: LESS POTENTIAL RENAL TOXICITY WITH 1500 Q24 DOSING BUT GIVEN INDICATION OF SEPSIS I WOULD RATHER AIM FOR HIGHER TROUGH WITH MORE FREQUENT DOSING AND BE ABLE TO OBTAIN TROUGH TOMORROW TO ENSURE SAFE AND EFFICACIOUS DOSING. Vancomycin dosing will take advantage of [employer] as a clinical decision support tool that uses Bayesian modeling to calculate individual patient's pharmacokinetic parameters and forecast the patient's drug concentration time course with the target goal AUC 24 range of 400 - 600 mg/L/hr.
--- NOTE | 2023-11-03 06:44 | PC.NURSE ---
Pt up to use urinal, voided 600ml. Pt tolerated activity well. IV fluids and vanco hung per MD orders. Pt in bed resting eyes closed, VSS remain stable, breathing even and unlabored. Plan of care ongoing.
[2023-11-03] MEDS: Insulin Lispro 100 UNIT/ML 3 ML VIAL SUBCUT ×4 (08:07→21:14)
[2023-11-03] MEDS: Insulin Glargine,Hum.rec.anlog 100 UNIT/ML 10 ML VIAL 10 UNIT SUBCUT (08:08)
[2023-11-03] MEDS: cefEPime HCl 2 GM in 0.9 % Sodium Chloride 50 ML IV (08:10)
--- NOTE | 2023-11-03 08:19 | PM.EVENT ---
Event Note Date of Service: 11/03/23 Event Note: Seen and evaluated this morning Feels better, on 4L O2 Tested positive for Covid DC Vanco and Cefepime Continue Steroids and nebulizers wean O2 down as tolerated Time Spent With Patient Time: Total time managing care of this patient today ____ minutes.
[2023-11-03 08:25] LABS: Glucose, Whole Blood 249 mg/dL (60-115)
--- NOTE | 2023-11-03 08:59 | PHA.MEDREC ---
Pharmacy Consult ? Medication Reconciliation Pharmacy has completed the medication reconciliation. Called pts detention to confirm meds. Clozapine 275 mg at Bedtime.
[2023-11-03 09:00] LABS: Lactic Acid 3.7 mmol/L (0.5-2.0)
[2023-11-03 09:01] LABS: MRSA Nasal PCR NEGATIVE (Negative); SA Nasal PCR NEGATIVE (Negative)
[2023-11-03] MEDS: Albuterol/Iprat 2.5/0.5MG 3 ML AMPUL.NEB INHALE ×3 (09:04→15:54)
[2023-11-03 10:13] LABS: Reflex Lactate? Lactic Acid Added
[2023-11-03 10:51] LABS: ~Lactic Acid-LAB USE ONLY 4.3 mmol/L (0.5-2.0)
--- NOTE | 2023-11-03 11:38 | PC.NURSE ---
pt a+o x3, vss, he denies pain. pt was seen by Dr. Manley, breathing tx given by RT, he was given breakfast, meds given as documented. pt resting quietly at this time.
[2023-11-03 12:34] LABS: Reflex Lactate? 2 Y
[2023-11-03 14:01] LABS: Glucose, Whole Blood 206 mg/dL (60-115)
[2023-11-03 14:39] LABS: ~Lactic Acid-LAB USE ONLY 3.9 mmol/L (0.5-2.0)
[2023-11-03 15:35] LABS: Glucose, Whole Blood 263 mg/dL (60-115)
[2023-11-03] MEDS: 0.9 % Sodium Chloride Flush 3 ML SYRINGE IVFLUSH ×3 (17:15→21:17)
[2023-11-03] MEDS: Heparin Sodium,Porcine 5,000 UNIT/ML VIAL 5000 UNIT SUBCUT ×2 (17:17→17:18)
[2023-11-03 19:48] LABS: Glucose, Whole Blood 192 mg/dL (60-115)
[2023-11-03 21:59] LABS: Lactic Acid 2.3 mmol/L (0.5-2.0)
[2023-11-03] MEDS: Atorvastatin Calcium 20 MG TABLET PO (22:22)
[2023-11-03] MEDS: cloZAPine 100 MG TABLET 200 MG PO (22:22)
[2023-11-03] MEDS: Docusate Sodium 100 MG CAPSULE PO (22:23)
[2023-11-03] MEDS: cloZAPine 25 MG TABLET 75 MG PO (22:23)
[2023-11-03] MEDS: LORazepam 0.5 MG TABLET PO (22:24)
[2023-11-03] MEDS: Metoprolol Succinate ER 50 MG TAB.ER.24H PO (22:24)
[2023-11-03] MEDS: traZODone HCL 50 MG TABLET PO (22:24)
--- NOTE | 2023-11-03 22:47 | PC.RT ---
Spoke to pt about wearing CPAP for NOC support. Pt states he hasn't needed to wear CPAP for 4 years and only wears a Nasal cannula for sleep. - Pt refused
[2023-11-03 23:45] LABS: Reflex Lactate? Lactic Acid Added
[2023-11-04] VITALS (9 sets, daily range): BP systolic 123–141; BP diastolic 65–81; PULSE 76–96; RESP 16–20; TEMP 36.2–36.8; O2SAT 91–98
--- NOTE | 2023-11-04 00:06 | P.CNID_ITS ---
History of Present Illness Data of Consult Service Date: 11/03/23 Requesting physician: Ann-Marie Norris Primary Care Provider: Regan Hogue MD HPI Reason for consult: hypoxia He presents with cough and shortness of breath since early October. He has 1/3 flu A and has just showed up with COVID on 11/03. He says he has been sick all month. Review of Systems 2 Review of Systems: Yes all other systems are reviewed and are negative PMFSH Past Medical History Medical History COVID-19 Thought disorder Nocturnal hypoxemia Constipation COPD (chronic obstructive pulmonary disease) JUDY (obstructive sleep apnea) Smoker BPH (benign prostatic hyperplasia) Diabetes mellitus Obesity (BMI 30-39.9) Pure hypercholesterolemia Prolonged QT interval Essential hypertension HOCM (hypertrophic obstructive cardiomyopathy) Aggression Hypertension Coronary artery disease CHF (congestive heart failure) Cardiac arrhythmia Myocardial infarction Schizoaffective disorder Family History Family History Father Medical history unknown Mother Medical history unknown Sister Alive and well Family history: reviewed and not pertinent Surgical History Surgical History History of ankle surgery History of intestinal surgery History of transurethral resection of prostate Social History Social History Household Members: Friend(s) Household Members Other:: long-term Housing: Apartment Housing Other:: long-term Do you presently have visiting nurse or other home services: No Alcohol intake: never Comment: camera on. Patient Tobacco Use Status: Current everyday Tobacco user Tobacco use type: Cigarette Cigarette Packs Per Day: 0 Cigarettes Per Day: 10 Years Smoked: 40yrs Second Hand Smoke Exposure: Yes Substance Use Type: Unknown service: No Current occupational status: disabled Sexual orientation: Did not discuss. Cognitive needs: Yes Hearing needs: No Vision needs: Yes Meds Allergies Allergy/AdvReac Type Severity Reaction Status Date / Time lithium [[place]] Allergy Severe TOXICITY Verified 11/02/23 23:57 thiothixene Allergy Severe SWELLING Verified 11/02/23 23:57 barium sulfate Allergy Intermediate NAUSEA & Verified 11/02/23 23:57 [BARIUM SULFATE] VOMITING haloperidol Allergy Intermediate MUSCLE Verified 11/02/23 23:57 TENSION IN LEGS benztropine Allergy Unknown benztropine Verified 11/02/23 23:57 mesylate- unknown diphenhydramine Allergy Unknown urinary Verified 11/02/23 23:57 [From Benadryl] retention fluphenazine Allergy Unknown UNKNOWN Verified 11/02/23 23:57 gabapentin [From NEURONTIN] Allergy Unknown UNKNOWN Verified 11/02/23 23:57 prolixen Allergy Unknown Unknown Uncoded 11/02/23 23:57 Active Medications: Current Medications Acetaminophen (Acetaminophen 325 Mg Tablet) 650 mg PO Q6H PRN PRN Reason: Pain, Mild (Pain Scale 1-3) Al Hydroxide/Mg Hydroxide (Magnesium Hydrox/Alum Hydrox 30 Ml Oral.Susp) 10 ml PO TID PRN PRN Reason: indegestion Albuterol Sulfate (Albuterol Sulfate (0.083%) 2.5 Mg/3 Ml Vial.Neb) 2.5 mg INHALE Q4H PRN PRN Reason: Shortness of Breath/Wheezing Albuterol/Ipratropium (Albuterol/Iprat 2.5/0.5mg 3 Ml Ampul.Neb) 3 ml INHALE RQ4H WHILE AWAKE [facility] Last Admin: 11/03/23 20:13 Dose: Not Given Aspirin (Aspirin Enteric Coated 81 Mg Tablet.) 81 mg PO DAILY [facility] Atorvastatin Calcium (Atorvastatin Calcium 20 Mg Tablet) 20 mg PO BEDTIME [facility] Last Admin: 11/03/23 22:22 Dose: 20 mg Clozapine (Clozapine 100 Mg Tablet) 200 mg PO BEDTIME [facility] Last Admin: 11/03/23 22:22 Dose: 200 mg Clozapine (Clozapine 25 Mg Tablet) 75 mg PO BEDTIME [facility] Last Admin: 11/03/23 22:23 Dose: 75 mg Dexamethasone Sodium Phosphate (Dexamethasone Sod Phosphate 4 Mg/Ml Vial) 6 mg IVPUSH DAILY ONE Stop: 11/04/23 09:01 Dextrose (Dextrose 50 % 25 Gm/50 Ml Syringe) 25 gm IVPUSH Q15M PRN; Protocol PRN Reason: per Hypoglycemia Standing Ord. Docusate Sodium (Docusate Sodium 100 Mg Capsule) 100 mg PO BID [facility] Last Admin: 11/03/23 22:23 Dose: 100 mg Furosemide (Furosemide 20 Mg Tablet) 20 mg PO DAILY [facility]; Protocol Glucose (Glucose Gel 15 Gm Gel..Gram.) 15 gm PO Q15M PRN; Protocol PRN Reason: per Hypoglycemia Standing Ord. Heparin Sodium (Porcine) (Heparin Sodium,Porcine 5,000 Unit/Ml Vial) 5,000 unit SUBCUT Q8H [facility] Last Admin: 11/03/23 17:18 Dose: 5,000 unit Insulin Glargine (Insulin Glargine,Hum.Rec.Anlog 100 Unit/Ml 10 Ml Vial) 10 unit SUBCUT DAILY [facility] Last Admin: 11/03/23 08:08 Dose: 10 unit Insulin Human Lispro (Insulin Lispro 100 Unit/Ml 3 Ml Vial) 0 unit SUBCUT QIDACHS [facility]; Protocol Last Admin: 11/03/23 21:14 Dose: 2 unit Lorazepam (Lorazepam 0.5 Mg Tablet) 0.5 mg PO BEDTIME [facility] Last Admin: 11/03/23 22:24 Dose: 0.5 mg Lorazepam (Lorazepam 1 Mg Tablet) 1 mg PO BID@0800,1600 [facility] Losartan Potassium (Losartan Potassium 25 Mg Tablet) 25 mg PO DAILY [facility]; Protocol Lurasidone HCl (Lurasidone Hcl 20 Mg Tablet) 60 mg PO DAILY [facility] Metoprolol Succinate (Metoprolol Succinate Er 50 Mg Tab.Er.24h) 50 mg PO BID [facility]; Protocol Last Admin: 11/03/23 22:24 Dose: 50 mg Non-Formulary Medication (Linagliptin [Tradjenta]) 5 mg PO DAILY [facility] Non-Formulary Medication (Testosterone [Androgel]) 2 packet TRANSDERMA DAILY [facility] Polyethylene Glycol (Polyethylene Glycol 3350 17 Gm Powd.Pack) 17 gm PO DAILY PRN PRN Reason: Constipation Senna (Senna [place] Extract Oral Syrup 15 Ml Syrup) 15 ml PO BEDTIME [facility] Last Admin: 11/03/23 22:24 Dose: 15 ml Sodium Chloride (0.9 % Sodium Chloride Flush 3 Ml Syringe) 3 ml IVFLUSH QSHIFT [facility] Last Admin: 11/03/23 21:17 Dose: 3 ml Tamsulosin HCl (Tamsulosin Hcl 0.4 Mg Capsule) 0.4 mg PO BEDTIME [facility] Trazodone HCl (Trazodone Hcl 50 Mg Tablet) 50 mg PO BEDTIME [facility] Last Admin: 11/03/23 22:24 Dose: 50 mg Vitamin D (Cholecalciferol (Vitamin D3) 25 Mcg Tablet) 25 mcg PO DAILY [facility] Home Medications Medication Instructions Recorded Confirmed Last Taken Type docusate sodium 100 mg capsule 1 cap PO BID 08/18/22 11/03/23 11/02/23 History acetaminophen 500 mg tablet 500 mg PO Q6H PRN Pain 04/20/23 11/03/23 Unknown History atorvastatin 20 mg tablet 20 mg PO BEDTIME 04/20/23 11/03/23 11/01/23 History clozapine 100 mg tablet 200 mg PO BEDTIME 04/20/23 11/03/23 11/01/23 History clozapine 25 mg tablet 75 mg PO BEDTIME 04/20/23 11/03/23 11/01/23 History lorazepam 0.5 mg tablet 0.5 mg PO BEDTIME 04/20/23 11/03/23 11/01/23 History lorazepam 1 mg tablet 1 mg PO BID@0800,1600 04/20/23 11/03/23 11/02/23 History polyethylene glycol 3350 17 17 g PO DAILY PRN Constipation 04/20/23 11/03/23 Unknown History gram/dose oral powder (Miralax) albuterol sulfate 90 mcg/actuation 2 puff inhalation Q6H PRN 10/10/23 11/03/23 Unknown History aerosol inhaler Shortness Of Breath Or Wheezing aluminum-mag hydroxide-simethicone 10 ml PO TID PRN indegestion 10/10/23 11/03/23 Unknown History 200 mg-200 mg-20 mg/5 mL oral susp aspirin 81 mg tablet,delayed 81 mg PO DAILY 10/10/23 11/03/23 11/02/23 History release senna leaf extract 176 mg/5 mL 15 ml PO BEDTIME constipation 10/10/23 11/03/23 11/01/23 History oral syrup (senna) testosterone 1.62 % (20.25 mg/1.25 2 packet transdermal DAILY 10/10/23 11/03/23 11/02/23 History gram) transdermal gel packet (AndroGel) linagliptin 5 mg tablet (Tradjenta) 5 mg PO DAILY 11/03/23 11/03/23 11/02/23 History losartan 25 mg tablet 25 mg PO DAILY 11/03/23 11/03/23 11/02/23 History lurasidone 60 mg tablet 60 mg PO DAILY 0111/03/23 11/02/23 History trazodone 50 mg tablet 50 mg PO BEDTIME 11/03/23 11/03/23 11/01/23 History Physical Exam 2 Vital Signs: Vital Signs: Last Vital Signs Temp 97.4 F 11/03/23 22:59 Pulse 91 11/03/23 22:59 Resp 20 11/03/23 22:59 BP 126/72 11/03/23 22:59 Pulse Ox 95 11/03/23 22:59 O2 Del Method Room Air 11/03/23 22:59 O2 Flow Rate 2 11/03/23 15:28 FiO2 24 11/02/23 23:58 BMI result Body Mass Index 39.1 HEENT: Head: Yes normal to inspection Resp: Effort & Inspection: normal respiratory effort Cardio: Rate: regular rate Rhythm: regular rhythm GI: Inspection: Yes normal to inspection Extrem: General: Yes normal to inspection Results Labs 11/03/23 00:15 11/03/23 00:15 Labs: Short CBC 11/03/23 Range/Units 00:15 WBC 11.1 H (4.8-10.8) X10*3/uL Hgb 11.1 L (14.0-18.0) g/dl Hct 34.7 L (42.0-52.0) % Plt Count 113 L (160-400) X10*3/uL BMP 11/03/23 00:15 Sodium 145 Potassium 4.4 Chloride 114 H Carbon Dioxide 19 L BUN 20 H Creatinine 1.51 H Calcium 8.7 Liver Function 11/03/23 Range/Units 00:15 Total Bilirubin 0.4 (0.0-1.0) mg/dL AST 18 (5-37) U/L ALT 19 (0-40) U/L Alkaline Phosphatase 64 (39-117) U/L Albumin 3.6 (3.5-5.0) g/dL Assessment and Plan (1) Acute and chronic respiratory failure with hypoxia: Status: Acute He has hypoxia to 86% on room air. He is on oxygen ,comfortable 2l Plan Would continue oxygen. No Remdesivir since not sure how long had COVID. Patient is unaware he has COVID. Give Dexamethasone until no longer hypoxic.
[2023-11-04] MEDS: Heparin Sodium,Porcine 5,000 UNIT/ML VIAL 5000 UNIT SUBCUT ×3 (01:27→17:31)
[2023-11-04 07:24] LABS: Hemoglobin 10.9 g/dl (14.0-18.0); Mean Corpuscular HGB Conc 31.1 g/dl (31.0-36.0); Mean Corpuscular Hemoglobin 27.2 pg (27.0-33.0); Mean Corpuscular Volume 87.3 fL (80.0-98.0); Platelet Count 106 X10*3/uL (160-400); Red Blood Count 4.01 X10*6/uL (4.60-5.80); Red Cell Distribution Width 16.7 % (11.0-16.0); White Blood Count 6.6 X10*3/uL (4.8-10.8)
[2023-11-04 07:28] LABS: Glucose, Whole Blood 156 mg/dL (60-115)
[2023-11-04 07:29] LABS: MANUAL DIFF FLAG NO
[2023-11-04 07:31] LABS: Basophils Percent Auto 0.5 % (0-2); Eosinophils Percent Auto 0.6 % (0-4); Imm Gran Abs Auto 0.04 X10*3/uL (0.00-0.03); Imm Gran Pct Auto 0.6 % (0.0-0.4); Lymphocytes Absolute Auto 0.9 X10*3/uL (1.2-4.9); Lymphocytes Percent Auto 12.8 % (20-40); Monocytes Absolute Auto 0.5 X10*3/uL (0.1-1.2); Monocytes Percent Auto 6.8 % (2-11); Neutrophils Absolute Auto 5.3 x10*3/uL (2.0-8.3); Neutrophils Percent Auto 78.7 % (45-73)
[2023-11-04 07:42] LABS: Lactic Acid 1.8 mmol/L (0.5-2.0)
[2023-11-04 08:20] LABS: Alanine Aminotransferase 16 U/L (0-40); Albumin Level 3.6 g/dL (3.5-5.0); Alkaline Phosphatase 50 U/L (39-117); Anion Gap 11 (12-20); Aspartate Amino Transferase 13 U/L (5-37); Bilirubin Total 0.4 mg/dL (0.0-1.0); Blood Urea Nitrogen 25 mg/dL (9-16); Carbon Dioxide 26 mmol/L (22-29); Chloride 112 mmol/L (96-108); Creatinine Clr Calc Pharmacy 77.7; Estimated Glomerular Filt Rate > 60; Glucose Random 155 mg/dL (60-115); Magnesium 2.1 mg/dL (1.6-2.6); Potassium 3.9 mmol/L (3.3-5.1); Sodium 145 mmol/L (135-145); Total Protein 6.4 g/dL (6.5-8.0)
[2023-11-04] MEDS: Albuterol/Iprat 2.5/0.5MG 3 ML AMPUL.NEB INHALE ×3 (08:21→19:52)
[2023-11-04 08:22] LABS: B Type Natriuretic Peptide 761 pg/mL (<100)
[2023-11-04] MEDS: Insulin Lispro 100 UNIT/ML 3 ML VIAL SUBCUT ×4 (08:22→21:54)
[2023-11-04] MEDS: Insulin Glargine,Hum.rec.anlog 100 UNIT/ML 10 ML VIAL 10 UNIT SUBCUT (08:23)
[2023-11-04] MEDS: dexAMETHasone sod phosphate 4 MG/ML VIAL 6 MG IVPUSH (08:24)
[2023-11-04] MEDS: Lurasidone HCl 20 MG TABLET 60 MG PO (08:25)
[2023-11-04] MEDS: Aspirin Enteric Coated 81 MG TABLET.DR PO (08:26)
[2023-11-04] MEDS: Metoprolol Succinate ER 50 MG TAB.ER.24H PO ×2 (08:26→21:57)
[2023-11-04] MEDS: Furosemide 20 MG TABLET PO (08:26)
[2023-11-04] MEDS: LORazepam 1 MG TABLET PO ×2 (08:26→17:31)
[2023-11-04] MEDS: Losartan Potassium 25 MG TABLET PO (08:26)
[2023-11-04] MEDS: Docusate Sodium 100 MG CAPSULE PO ×2 (08:26→21:54)
[2023-11-04] MEDS: Cholecalciferol (Vitamin D3) 25 MCG TABLET PO (08:26)
[2023-11-04] MEDS: 0.9 % Sodium Chloride Flush 3 ML SYRINGE IVFLUSH ×2 (08:27→21:58)
--- NOTE | 2023-11-04 11:22 | P.PNIM_ITS ---
Subjective Subjective Date of Service: 11/04/23 Interval History: Seen and evaluated this morning feels better overall denies any fever or chills weaning down O2 supplement Review of Systems Review of Systems: Yes all other systems are reviewed and are negative Physical Exam 2 Vital Signs: Vital Signs: Last Vital Signs Temp 98.3 F 11/04/23 10:58 Pulse 92 11/04/23 10:58 Resp 18 11/04/23 10:58 BP 128/76 11/04/23 10:58 Pulse Ox 96 11/04/23 10:58 O2 Del Method Nasal Cannula 11/04/23 10:58 O2 Flow Rate 2 11/04/23 10:58 FiO2 24 11/02/23 23:58 BMI result Body Mass Index 39.1 Const: Other: Constitutional : Awake, interactive, not in distress Neck : Normal inspection, Supple Cardiovascular : RRR, no JVP, no lower extremity edema Respiratory :fair bilateral air entry, no crackles, scattered expiratory wheezes , on O2 supplement Gastrointestinal: soft, lax, Normal bowel sounds, Non tender Skin : Warm, Dry Neurological : Alert & oriented x3, No focal deficit Objective Data Active Medications Acetaminophen (Acetaminophen 325 Mg Tablet) 650 mg PO Q6H PRN PRN Reason: Pain, Mild (Pain Scale 1-3) Al Hydroxide/Mg Hydroxide (Magnesium Hydrox/Alum Hydrox 30 Ml Oral.Susp) 10 ml PO TID PRN PRN Reason: indegestion Albuterol Sulfate (Albuterol Sulfate (0.083%) 2.5 Mg/3 Ml Vial.Neb) 2.5 mg INHALE Q4H PRN PRN Reason: Shortness of Breath/Wheezing Albuterol/Ipratropium (Albuterol/Iprat 2.5/0.5mg 3 Ml Ampul.Neb) 3 ml INHALE RQ4H WHILE AWAKE [facility] Last Admin: 11/04/23 08:21 Dose: 3 ml Documented By: JOHANA Aspirin (Aspirin Enteric Coated 81 Mg Tablet.) 81 mg PO DAILY [facility] Last Admin: 11/04/23 08:26 Dose: 81 mg Documented By: ANA Atorvastatin Calcium (Atorvastatin Calcium 20 Mg Tablet) 20 mg PO BEDTIME [facility] Last Admin: 11/03/23 22:22 Dose: 20 mg Documented By: SINDHU Clozapine (Clozapine 100 Mg Tablet) 200 mg PO BEDTIME [facility] Last Admin: 11/03/23 22:22 Dose: 200 mg Documented By: SINDHU Clozapine (Clozapine 25 Mg Tablet) 75 mg PO BEDTIME [facility] Last Admin: 11/03/23 22:23 Dose: 75 mg Documented By: SINDHU Dextrose (Dextrose 50 % 25 Gm/50 Ml Syringe) 25 gm IVPUSH Q15M PRN; Protocol PRN Reason: per Hypoglycemia Standing Ord. Docusate Sodium (Docusate Sodium 100 Mg Capsule) 100 mg PO BID [facility] Last Admin: 11/04/23 08:26 Dose: 100 mg Documented By: ANA Furosemide (Furosemide 20 Mg Tablet) 20 mg PO DAILY [facility]; Protocol Last Admin: 11/04/23 08:26 Dose: 20 mg Documented By: ANA Glucose (Glucose Gel 15 Gm Gel..Gram.) 15 gm PO Q15M PRN; Protocol PRN Reason: per Hypoglycemia Standing Ord. Heparin Sodium (Porcine) (Heparin Sodium,Porcine 5,000 Unit/Ml Vial) 5,000 unit SUBCUT Q8H [facility] Last Admin: 11/04/23 08:23 Dose: 5,000 unit Documented By: ANA Insulin Glargine (Insulin Glargine,Hum.Rec.Anlog 100 Unit/Ml 10 Ml Vial) 10 unit SUBCUT DAILY [facility] Last Admin: 11/04/23 08:23 Dose: 10 unit Documented By: ANA Insulin Human Lispro (Insulin Lispro 100 Unit/Ml 3 Ml Vial) 0 unit SUBCUT QIDACHS [facility]; Protocol Last Admin: 11/04/23 08:22 Dose: 2 unit Documented By: ANA Lorazepam (Lorazepam 0.5 Mg Tablet) 0.5 mg PO BEDTIME [facility] Last Admin: 11/03/23 22:24 Dose: 0.5 mg Documented By: SINDHU Lorazepam (Lorazepam 1 Mg Tablet) 1 mg PO BID@0800,1600 [facility] Last Admin: 11/04/23 08:26 Dose: 1 mg Documented By: ANA Losartan Potassium (Losartan Potassium 25 Mg Tablet) 25 mg PO DAILY [facility]; Protocol Last Admin: 11/04/23 08:26 Dose: 25 mg Documented By: ANA Lurasidone HCl (Lurasidone Hcl 20 Mg Tablet) 60 mg PO DAILY [facility] Last Admin: 11/04/23 08:25 Dose: 60 mg Documented By: ANA Metoprolol Succinate (Metoprolol Succinate Er 50 Mg Tab.Er.24h) 50 mg PO BID [facility]; Protocol Last Admin: 11/04/23 08:26 Dose: 50 mg Documented By: ANA Non-Formulary Medication (Linagliptin [Tradjenta]) 5 mg PO DAILY [facility] Non-Formulary Medication (Testosterone [Androgel]) 2 packet TRANSDERMA DAILY [facility] Polyethylene Glycol (Polyethylene Glycol 3350 17 Gm Powd.Pack) 17 gm PO DAILY PRN PRN Reason: Constipation Senna (Senna Ronceverte Extract Oral Syrup 15 Ml Syrup) 15 ml PO BEDTIME [facility] Last Admin: 11/03/23 22:24 Dose: 15 ml Documented By: SINDHU Sodium Chloride (0.9 % Sodium Chloride Flush 3 Ml Syringe) 3 ml IVFLUSH QSHIFT [facility] Last Admin: 11/04/23 08:27 Dose: 3 ml Documented By: ANA Tamsulosin HCl (Tamsulosin Hcl 0.4 Mg Capsule) 0.4 mg PO BEDTIME [facility] Trazodone HCl (Trazodone Hcl 50 Mg Tablet) 50 mg PO BEDTIME [facility] Last Admin: 11/03/23 22:24 Dose: 50 mg Documented By: SINDHU Vitamin D (Cholecalciferol (Vitamin D3) 25 Mcg Tablet) 25 mcg PO DAILY [facility] Last Admin: 11/04/23 08:26 Dose: 25 mcg Documented By: ANA Labs 11/04/23 06:47 11/04/23 07:02 Labs: Laboratory Results - last 24 hr 11/03/23 11/03/23 11/03/23 13:56 14:19 15:26 MCV MCH MCHC RDW Plt Count MPV Immature Gran % (Auto) Neut % (Auto) Lymph % (Auto) [place] % (Auto) Eos % (Auto) Baso % (Auto) Lymph # (Auto) [place] # (Auto) Eos # (Auto) Baso # (Auto) Abs Immat Gran (auto) Absolute Neuts (auto) Absolute Nucleated RBC Nucleated RBC % (auto) Anion Gap Estim Creat Clear Calc Estimated GFR POC Glucose 206 H 263 H Random Glucose Lactic Acid Lactic Acid F/U @ 2Hr Lactic Acid F/U @ 4Hr 3.9 H* Calcium Magnesium Total Bilirubin AST ALT Alkaline Phosphatase B-Natriuretic Peptide Total Protein Albumin 11/03/23 11/03/23 11/04/23 19:27 21:42 00:10 MCV MCH MCHC RDW Plt Count MPV Immature Gran % (Auto) Neut % (Auto) Lymph % (Auto) [place] % (Auto) Eos % (Auto) Baso % (Auto) Lymph # (Auto) [place] # (Auto) Eos # (Auto) Baso # (Auto) Abs Immat Gran (auto) Absolute Neuts (auto) Absolute Nucleated RBC Nucleated RBC % (auto) Anion Gap Estim Creat Clear Calc Estimated GFR POC Glucose 192 H Random Glucose Lactic Acid 2.3 H* Lactic Acid F/U @ 2Hr 2.0 Lactic Acid F/U @ 4Hr Calcium Magnesium Total Bilirubin AST ALT Alkaline Phosphatase B-Natriuretic Peptide Total Protein Albumin 11/04/23 11/04/23 11/04/23 06:47 07:02 07:14 MCV 87.3 MCH 27.2 MCHC 31.1 RDW 16.7 H Plt Count 106 L MPV 12.0 Immature Gran % (Auto) 0.6 H Neut % (Auto) 78.7 H Lymph % (Auto) 12.8 L [place] % (Auto) 6.8 Eos % (Auto) 0.6 Baso % (Auto) 0.5 Lymph # (Auto) 0.9 L [place] # (Auto) 0.5 Eos # (Auto) 0.0 Baso # (Auto) 0.0 Abs Immat Gran (auto) 0.04 H Absolute Neuts (auto) 5.3 Absolute Nucleated RBC 0.000 Nucleated RBC % (auto) 0.0 Anion Gap 11 L Estim Creat Clear Calc 77.7 Estimated GFR > 60 POC Glucose 156 H Random Glucose 155 H Lactic Acid 1.8 Lactic Acid F/U @ 2Hr Lactic Acid F/U @ 4Hr Calcium 9.0 Magnesium 2.1 Total Bilirubin 0.4 AST 13 ALT 16 Alkaline Phosphatase 50 B-Natriuretic Peptide 761 H Total Protein 6.4 L Albumin 3.6 Microbiology Microbiology Results: Microbiology 11/03/23 00:29 Blood Culture - Preliminary Blood - Venous No growth after 24 hours. 11/03/23 00:24 Blood Culture - Preliminary Blood - Venous No growth after 24 hours. Assessment and Plan (1) Acute and chronic respiratory failure with hypoxia: Status: Acute (2) COVID-19: Status: Acute (3) JUHI (acute kidney injury): Status: Acute Plan Navid Carvalho this is a 58 years old man admitted with: # Acute on chronic respiratory failure and viral sepsis 2/2 acute COPD exacerbation as complication of COVID-19 infection Bronchodilator therapy. dexamethasone 6 mg IV daily No Remdisivir given unclear lenght of illness ID input appreciatred Discontinue Abx wean O2 down to baseline as tolerated Cultures negative # Metabolic acidosis secondary to lactic acidosis resolved # Acute kidney injury. Improving back to baseline Hold losartan and furosemide monitor renal function. Avoid nephrotoxic agents # Essential hypertension Hold losartan., restart Metoprolol # Type 2 diabetes mellitus. Hold linagliptin. Diabetic diet. Start Lantus. Insulin sliding scale for now. # Schizoaffective disorder Continue clozapine. Hold lorazepam and trazodone for now due to acute respiratory failure. # Obstructive sleep apnea. CPAP bedtime. # Coronary artery disease. Continue aspirin and atorvastatin. # Hyperlipidemia. Continue statin DVT prophylaxis: Heparin subcut Code status: Full Patient will need hospitalization overnight for acute on chronic respiratory failure treatment secondary to COVID-19 infection with supplemental oxygen bronchodilator therapy, IV steroids and kidney function improvement Quality Stroke Does the patient have a stroke diagnosis?: No VTE Prior VTE?: No VTE Risk Level:: Medical - moderate - high VTE Device Contraindication: Treatment Not Indicated VTE Drug Contraindication: N/A - Med Ordered
[2023-11-04 11:25] LABS: Glucose, Whole Blood 239 mg/dL (60-115)
--- NOTE | 2023-11-04 15:47 | MHC.CM.PN ---
Addendum entered by Tangela Pierce 11/04/23 15:58: COPY OF IMM TO BE MAILED TO [facility] AT [address] [facility] [id number] THE ADDRESS ON FILE IS INCORRECT Original Note: CM CALLED PTS STAFF MEMBER [phone] MAGGIE, SHE REPORTS THE PT LIVES IN ONE SIDE OF THE [facility] WHERE HE RECEIVES SUPPORT THROUGH [facility] FOR [facility]DEPENDENT L[facility], THE OTHER HALF IS THE [facility] . MAGGIE REPORTS THE PT DID HAVE O2 FOR A WHILE BUT SHE THINKS THAT THE ORDER WAS DISCONTINUED SHE SAYS IF THE PT HAS TO HAVE O2 AT [facility], THEY ASK THAT THE ORDERS BE VERY CLEAR PT ALSO ATTENDS A DAY PROGRAM, [facility], IN [place] HCP ON FILE PCP: [facility]ANIA [facility]BLO[facility] IMM DELIVERED DCP: HOME WITH RESUMPTION OF [facility] SUPPORT TRANSPORT VIA [facility] OR BLS CALL PLACED TO PTS HCP/BROTHER, [facility] [phone]
[2023-11-04 16:12] LABS: Glucose, Whole Blood 219 mg/dL (60-115)
[2023-11-04 16:30] LABS: Vancomycin Random 3.1 mcg/mL (15-20)
[2023-11-04 21:14] LABS: Glucose, Whole Blood 162 mg/dL (60-115)
[2023-11-04] MEDS: Atorvastatin Calcium 20 MG TABLET PO (21:54)
[2023-11-04] MEDS: cloZAPine 100 MG TABLET 200 MG PO (21:56)
[2023-11-04] MEDS: cloZAPine 25 MG TABLET 75 MG PO (21:57)
[2023-11-05] MEDS: Heparin Sodium,Porcine 5,000 UNIT/ML VIAL 5000 UNIT SUBCUT ×2 (00:59→09:16)
[2023-11-05 03:17] VITALS: BP 127/73; PULSE 82; RESP 20; TEMP 36.4; O2SAT 98
[2023-11-05 07:38] LABS: Glucose, Whole Blood 129 mg/dL (60-115)
[2023-11-05 07:41] LABS: Anion Gap 13 (12-20); Blood Urea Nitrogen 28 mg/dL (9-16); Calcium 8.9 mg/dL (8.4-10.2); Carbon Dioxide 25 mmol/L (22-29); Chloride 111 mmol/L (96-108); Creatinine Clr Calc Pharmacy 83.1; Estimated Glomerular Filt Rate > 60; Glucose Random 135 mg/dL (60-115); Potassium 3.7 mmol/L (3.3-5.1); Sodium 145 mmol/L (135-145)
[2023-11-05 07:50] VITALS: BP 133/82; PULSE 83; RESP 20; TEMP 36.6; O2SAT 98
[2023-11-05] MEDS: Albuterol/Iprat 2.5/0.5MG 3 ML AMPUL.NEB INHALE ×2 (08:33→11:20)
[2023-11-05 08:35] VITALS: PULSE 83; RESP 20; O2SAT 97
[2023-11-05 09:05] VITALS: PULSE 83
[2023-11-05] MEDS: Docusate Sodium 100 MG CAPSULE PO (09:16)
[2023-11-05] MEDS: Insulin Glargine,Hum.rec.anlog 100 UNIT/ML 10 ML VIAL 10 UNIT SUBCUT (09:16)
[2023-11-05] MEDS: LORazepam 1 MG TABLET PO (09:17)
[2023-11-05] MEDS: 0.9 % Sodium Chloride Flush 3 ML SYRINGE IVFLUSH (09:17)
[2023-11-05] MEDS: Aspirin Enteric Coated 81 MG TABLET.DR PO (09:17)
[2023-11-05] MEDS: Cholecalciferol (Vitamin D3) 25 MCG TABLET PO (09:17)
[2023-11-05] MEDS: Furosemide 20 MG TABLET PO (09:17)
[2023-11-05] MEDS: Lurasidone HCl 20 MG TABLET 60 MG PO (09:17)
[2023-11-05] MEDS: Metoprolol Succinate ER 50 MG TAB.ER.24H PO (09:17)
[2023-11-05 11:21] VITALS: PULSE 83; RESP 20; O2SAT 97
[2023-11-05 11:40] VITALS: BP 123/68; PULSE 90; RESP 22; TEMP 36.6; O2SAT 93
--- NOTE | 2023-11-05 11:47 | MHC.CM.PN ---
Pt is medically cleared for D/C back to [facility] today. Transport booked via [facility] at 12:30pm today. halfway was notified by this CM, and pts brother/HCP Nigel notified of D/C.
--- NOTE | 2023-11-05 11:48 | P.DS_ITS ---
DS: Providers Provider Date of Service: 11/05/23 Date of admission: 11/03/23 03:48 Primary care physician: Regan Hogue MD Consults: 11/03/23 05:00 Consult to Infectious Diseases Routine Consulting Provider: [facility] [place] [place] Infectious Disease Reason for consultation: COVID-19 Has provider been notified: No DS: Diagnosis Discharge Diagnosis (1) Acute and chronic respiratory failure with hypoxia: Status: Resolved (2) COVID-19: Status: Resolved (3) JUHI (acute kidney injury): Status: Resolved (4) Lactic acidosis: Status: Acute DS: Summary Hospital Course Hospital Course: Admission note HPI Navid Carvalho this is a 58 years old man with past medical history significant for HOCM, COPD -on home oxygen 2 L/min NC, obesity, obstructive sleep apnea, coronary artery disease, type 2 diabetes mellitus, hypertension and schizoaffective disorder was brought to the emergency department for shortness of breath evaluation. HPI was mostly obtained from emergency provider and medical record as the patient is a very vague historian and preferred to sleep. He has been having worsening shortness of breath since yesterday associated with cough. No fevers chills were reported. He was low oxygen saturation of 86% on 2 liters/minutes of supplemental oxygen. His legs are also swollen. Patient was recently discharged from hospital (Oct 25) after he was hospitalized with diagnosis of hypoxic respiratory failure secondary to influenza A infection. He was treated with Tamiflu, nebs and IV steroids. He also received treatment with empiric IV antibiotic therapy. ED tx: Furosemide 20 mg IV, Xopenex 3.75 mg inhaled, ceftriaxone 1 g IV, dexamethasone 6 mg Hospital course # Acute on chronic respiratory failure and viral sepsis 2/2 acute COPD exacerbation as complication of COVID-19 infection The patient was treated with Bronchodilator therapy. dexamethasone 6 mg IV daily but No Remdisivir given unclear lenght of illness as he was evaluated by ID input appreciatred. Cultures remained negative and antibiotics discontinued. O2 was weaned down to room air on the day of discharge with O2 sat in early 90s%. To stay on room air during the day; only use O2 if needed for O2 sat<90%. and to use 2L at night time. # Metabolic acidosis secondary to lactic acidosis resolved with IV fluids and O2 supplement as it was likely due to hypoxia on presentation # Acute kidney injury. Elevated Creatinine of 1.5 on admission. Improving back to baseline of 1.1 at day of discharge. To restart losartan and furosemide Continue Dexamethasone as prescribed O2 2L at bedtime. room air during the day Keep well hydrated Time Attestation Discharge coordination time: Greater than 30 minutes Quality: Safe Use of Opioids Does Pt have an Active Cancer Diagnosis on the Problem List?: No Quality: Stroke Does the patient have a stroke diagnosis?: No Physical Exam Vital Signs: Vital Signs: Last Vital Signs Temp 97.8 F 11/05/23 11:40 Pulse 90 11/05/23 11:40 Resp 22 H 11/05/23 11:40 BP 123/68 11/05/23 11:40 Pulse Ox 93 11/05/23 11:40 O2 Del Method Room Air 11/05/23 11:40 O2 Flow Rate 2 11/05/23 07:50 FiO2 24 11/02/23 23:58 BMI result Body Mass Index 39.1 Const: Other: Constitutional : Awake, interactive, not in distress Neck : Normal inspection, Supple Cardiovascular : RRR, no JVP, no lower extremity edema Respiratory :fair bilateral air entry, no crackles, sno wheezes Gastrointestinal: soft, lax, Normal bowel sounds, Non tender Skin : Warm, Dry Neurological : Alert & oriented x3, No focal deficit DS: Data Data Completed and Pending Completed studies during hospitalization [Text1]: Procedures Introduction of Remdesivir Anti-infective into Peripheral Vein, Percutaneous Approach, [employer] 5 (09/25/21) Labs on day of discharge: Laboratory Results - last 24 hr 11/04/23 11/04/23 11/04/23 16:01 16:06 21:09 Hold Purple Top Sodium Potassium Chloride Carbon Dioxide Anion Gap BUN Creatinine Estim Creat Clear Calc Estimated GFR POC Glucose 219 H 162 H Random Glucose Calcium Random Vancomycin 3.1 L 11/05/23 11/05/23 06:52 07:26 Hold Purple Top SEE NOTE Sodium 145 Potassium 3.7 Chloride 111 H Carbon Dioxide 25 Anion Gap 13 BUN 28 H Creatinine 1.15 Estim Creat Clear Calc 83.1 Estimated GFR > 60 POC Glucose 129 H Random Glucose 135 H Calcium 8.9 Random Vancomycin Preliminary micro results at discharge 11/03/23 00:29 Blood Culture - Preliminary Blood - Venous No growth after 48 hours. 11/03/23 00:24 Blood Culture - Preliminary Blood - Venous No growth after 48 hours. Imaging Chest x-ray: Radiologist's impression: ITS Impressions Chest X-Ray 11/03/23 00:11 IMPRESSION: Interval improvement in aeration since 10/10/2023 suggesting improved edema, with some residual prominence of the central vasculature. Discharge Plan Discharge Anticipated Discharge Date/Time: 11/05/23 11:40 Patient Disposition: Home, Self-Care Discharge Diagnosis: Covid19 infection Kidney injury Referrals: Regan Hogue MD [Primary Care Provider] - 1 Week Discharge Medications: New dexamethasone 4 mg tablet 4 mg PO DAILY Qty: 7 0RF Continued alfuzosin 10 mg tablet extended release 24 hr 10 mg PO BEDTIME 90 Days Qty: 90 1RF Rx Instructions: Take before bedtime cholecalciferol (vitamin D3) 25 mcg (1,000 unit) tablet 25 mcg PO DAILY Qty: 90 0RF metoprolol succinate 50 mg tablet extended release 24 hr 50 mg PO BID Qty: 60 2RF docusate sodium 100 mg capsule 1 cap PO BID atorvastatin 20 mg tablet 20 mg PO BEDTIME clozapine 100 mg tablet 200 mg PO BEDTIME clozapine 25 mg tablet 75 mg PO BEDTIME lorazepam 1 mg tablet 1 mg PO BID@0800,1600 lorazepam 0.5 mg Tablet 0.5 mg PO BEDTIME polyethylene glycol 3350 [Miralax] 17 gram/dose Powder 17 g PO DAILY PRN (Reason: Constipation) acetaminophen 500 mg Tablet 500 mg PO Q6H PRN (Reason: Pain) losartan 25 mg tablet 25 mg PO DAILY trazodone 50 mg tablet 50 mg PO BEDTIME lurasidone 60 mg tablet 60 mg PO DAILY Tradjenta 5 mg tablet 5 mg PO DAILY testosterone [AndroGel] 1.62 % (20.25 mg/1.25 gram) gel in packet 2 packet TRANSDERMAL DAILY Rx Instructions: apply 20.25 mg /1 packet to max area of EACH upper arm and shoulder alum-mag hydroxide-simeth 200-200-20 mg/5 mL Suspension 10 ml PO TID PRN (Reason: indegestion) Rx Instructions: administer between meals and at bedtime albuterol sulfate 90 mcg/actuation HFA aerosol inhaler 2 puff inhalation Q6H PRN (Reason: Shortness Of Breath Or Wheezing) senna leaf extract [senna] 176 mg/5 mL syrup 15 ml PO BEDTIME aspirin 81 mg Tablet,Delayed Release (Dr/Ec) 81 mg PO DAILY furosemide 20 mg Tablet 20 mg PO DAILY Qty: 30 0RF Protocol: Hold for SBP< HOLD for SBP < : 90 Discharge Orders: Discharge Order (Routine); Ordered 11/05/23 Ordered By: Ann-Marie Norris Diet: Advance to usual diet Activity on Discharge: As tolerated Stand Alone Forms: Patient Portal Discharge page Care Plan Goals: Read below Health Concerns: Read below Plan of Treatment: Read below Assessment: Continue Dexamethasone as prescribed O2 2L at bedtime. room air during the day Keep well hydrated Discharge Date/Time: 11/05/23 12:38
[2023-11-05 11:58] LABS: Glucose, Whole Blood 147 mg/dL (60-115)
[2023-11-05] MEDS: dexAMETHasone 6 MG TABLET PO (12:02)
--- NOTE | 2023-11-05 13:08 | P.CDIM_ITS ---
PROVIDER RESPONSE TEXT: To clarify, the appropriate diagnosis supported by the clinical indicators: Acute QUERY TEXT: PHYSICIAN'S DOCUMENTATION REQUEST Date of Query: 11/05/2023 09:30 AM EST Patient Name: Navid Carvalho Admit Date: 11/03/2023 Dear Ann-Marie Norris, A review of the medical record indicates additional documentation may be needed. Please review below and update the documentation accordingly. Clinical Indicators: Progress notes: Metabolic acidosis secondary to lactic acid, resolved Clarify which of the following accurately represents the acuity of the metabolic acidosis: Acute Acute on chronic Compensated Other (explain) Clinically unable to determine (explain) Thank you, Farideh Bryant, CCS, CDIS Use of terms such as suspected, likely, concern for, or probable (associated with a specific diagnosi s that is being evaluated, monitored, or treated as if it exists) are acceptable and can be coded in the inpatient se tting, when documented at the time of discharge. Please use your independent medical judgment in providing your response. THIS QUERY IS PART OF THE PERMANENT MEDICAL RECORD
--- NOTE | 2023-11-05 13:08 | P.CDIM_ITS ---
PROVIDER RESPONSE TEXT: To clarify, the appropriate diagnosis supported by the clinical indicators: Diastolic: acute on chronic QUERY TEXT: PHYSICIAN'S DOCUMENTATION REQUEST Date of Query: 11/05/2023 11:48 AM EST Patient Name: Navid Carvalho Admit Date: 11/03/2023 Dear Ann-Marie Norris, A review of the medical record indicates additional documentation may be needed. Please review below and update the documentation accordingly. Clinical Indicators: H&P dated 11/03 under the [facility]: Congestive heart failure BNP 848 H Furosemide 20 mg daily Worsening shortness of breath, legs are swollen/2+ lower extremity edema for last few days. HOCM/avoid diuretics Hypoxemia symptoms from COVID 19 infection along with CHF. Please provide further specificity regarding the most likely type and acuity of CHF you are evaluatin g, treating, or monitoring. Systolic Please specify if Acute, Chronic, or Acute on chronic, or Unable to determine Diastolic Please specify if Acute, Chronic, or Acute on chronic, or Unable to determine Combined Systolic/Diastolic Please specify if Acute, Chronic, or Acute on chronic, or Unable to determine Other (explain) Clinically unable to determine (explain) Thank you, Farideh Bryant, CCS, CDIS Use of terms such as suspected, likely, concern for, or probable (associated with a specific diagnosi s that is being evaluated, monitored, or treated as if it exists) are acceptable and can be coded in the inpatient se tting, when documented at the time of discharge. Please use your independent medical judgment in providing your response. THIS QUERY IS PART OF THE PERMANENT MEDICAL RECORD
== END 2023-11-05 12:38 | disposition home or self-care (01) | DRG 871 ==
LOC: HO.ED 11-03 03:11 → HO.EDOVER 11-03 03:55 → HO.IMC 11-03 13:13
PROVIDERS: Admitting Provider Internal Medicine; Emergency Provider Internal Medicine; PCP Internal Medicine; Visit Provider Student in an Organized Health Care Education/Training Program
DX: A41.89 Other specified sepsis (principal); I50.33 Acute on chronic diastolic (congestive) heart failure; J96.21 Acute and chronic respiratory failure with hypoxia; U07.1 COVID-19; J44.1 Chronic obstructive pulmonary disease with (acute) exacerbation; I42.1 Obstructive hypertrophic cardiomyopathy; N17.9 Acute kidney failure, unspecified; E87.21 Acute metabolic acidosis; I11.0 Hypertensive heart disease with heart failure; F25.9 Schizoaffective disorder, unspecified; D64.9 Anemia, unspecified; N40.0 Benign prostatic hyperplasia without lower urinary tract symptoms; E78.5 Hyperlipidemia, unspecified; E11.9 Type 2 diabetes mellitus without complications; Z99.81 Dependence on supplemental oxygen; I25.10 Atherosclerotic heart disease of native coronary artery without angina pectoris; G47.33 Obstructive sleep apnea (adult) (pediatric); F17.210 Nicotine dependence, cigarettes, uncomplicated; Z23 Encounter for immunization; Z71.6 Tobacco abuse counseling; Z79.82 Long term (current) use of aspirin; Z79.84 Long term (current) use of oral hypoglycemic drugs; Z79.899 Other long term (current) 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
CPT/HCPCS: 0241U; 36415; 71045; 80048; 80053; 80202; 82803; 82947; 83605; 83735; 83880; 84484; 85025; 85027; 87040; 87640; 87641; 90686; 93005; 94640; 97161; 99285; J0692; J0696; J1100; J1644; J1940; J3370; J8540

== ENCOUNTER → 2023-11-02 23:24 | Outpatient (BNV) | payer OTHER, SELFPAY | PROVIDERS: Admitting Provider Internal Medicine; Emergency Provider Internal Medicine; PCP Internal Medicine; Visit Provider Internal Medicine Cardiovascular Disease | DX: R06.02 Shortness of breath (principal) | CPT/HCPCS: 93010 ==

== ENCOUNTER → 2023-11-03 03:48 | Outpatient (BNV) | payer OTHER, SELFPAY | PROVIDERS: Admitting Provider Internal Medicine; Emergency Provider Internal Medicine; PCP Internal Medicine; Visit Provider Internal Medicine | DX: J96.21 Acute and chronic respiratory failure with hypoxia (principal) | CPT/HCPCS: 99222 ==

== ENCOUNTER → 2023-11-03 03:48 | Outpatient (BNV) | payer OTHER, SELFPAY | PROVIDERS: Admitting Provider Internal Medicine; Emergency Provider Internal Medicine; PCP Internal Medicine; Visit Provider Internal Medicine | DX: J96.21 Acute and chronic respiratory failure with hypoxia (principal); U07.1 COVID-19; N17.9 Acute kidney failure, unspecified | CPT/HCPCS: 99223; 99233; 99239; 99499 ==

== ENCOUNTER 2023-11-12 10:56 | Outpatient (AMB) | payer OTHER, MEDICAID, SELFPAY ==
[2023-11-12 10:57] VITALS: BP 110/70; PULSE 88; O2SAT 96; BMI 36.6
--- NOTE | 2023-11-12 10:57 | MHC.PC.OV ---
Vital Signs 11/12/23 10:57 Height 5 ft 7 in Weight 233 lb 8 oz BMI 36.6 BP 110/70 Blood Pressure Location Lt brachial Position Sitting Pulse 88 Pulse Source Pulse Oximeter Pulse Oximetry (%) 96 Oxygen Delivery Method Room Air Intake Visit Reasons: 4mth f/u Escrow Officer Required: No Accompanied by: Self / Same As Patient Allergies lithium [[place]] Allergy (Severe, Verified 11/12/23 11:49) TOXICITY thiothixene Allergy (Severe, Verified 11/12/23 11:49) SWELLING barium sulfate [BARIUM SULFATE] Allergy (Intermediate, Verified 11/12/23 11:49) NAUSEA & VOMITING haloperidol Allergy (Intermediate, Verified 11/12/23 11:49) MUSCLE TENSION IN LEGS benztropine Allergy (Unknown, Verified 11/12/23 11:49) benztropine mesylate- unknown diphenhydramine [From Benadryl] Allergy (Unknown, Verified 11/12/23 11:49) urinary retention fluphenazine Allergy (Unknown, Verified 11/12/23 11:49) UNKNOWN gabapentin [From NEURONTIN] Allergy (Unknown, Verified 11/12/23 11:49) UNKNOWN prolixen Allergy (Unknown, Uncoded 11/12/23 11:49) Unknown Medication List - Last Reconciled 11/12/23 by Regan Hogue MD acetaminophen 500 mg PO Q6H PRN albuterol sulfate 90 mcg/actuation 2 puffs inhalation Q6H PRN alfuzosin ER 10 mg PO BEDTIME 90 days alum-mag hydroxide-simeth 200-200-20 mg/5 mL 10 mL PO TID PRN aspirin 81 mg PO DAILY atorvastatin 20 mg PO BEDTIME cholecalciferol (vitamin D3) 25 mcg PO DAILY clozapine 75 mg PO BEDTIME clozapine 200 mg PO BEDTIME dexamethasone 4 mg PO DAILY docusate sodium 1 cap PO BID furosemide 20 mg See Protocol PO DAILY linagliptin (Tradjenta) 5 mg PO DAILY lorazepam 0.5 mg PO BEDTIME lorazepam 1 mg PO BID@0800,1600 losartan 25 mg PO DAILY lurasidone 60 mg PO DAILY metoprolol succinate ER 50 mg PO BID polyethylene glycol 3350 (Miralax) 17 grams PO DAILY PRN senna leaf extract (senna) 15 mL PO BEDTIME testosterone (AndroGel) 2 packets transdermal DAILY trazodone 50 mg PO BEDTIME Tobacco use date assessed: 11/12/23 Dental Screening Dental Screen Date: 11/12/23 Did you have a dental visit in the last 12 months?: No Did you have a dental problem in the last 6 months where you did not have access to dental care?: No Was dental information given to patient?: No HPI 4mth f/u HPI Details Patient comes in today for his follow up visit He was admitted to [facility] briefly last week when he presented to the ER with increasing weakness and SOB and was found to be COVID positive Work ups also revealed JUHI and some CHF exacerbation Patient states that he is presently still feeling weak with on and off SOB/CHAVEZ He denies any headaches or dizziness Denies any chest pains No nausea/vomiting, no abdominal pain No change in bowel habits noted He did not get his follow up labs done although labs were done at the hospital when he was there last week [facility] Medical History COVID-19 Thought disorder Nocturnal hypoxemia Constipation COPD (chronic obstructive pulmonary disease) JUDY (obstructive sleep apnea) Smoker BPH (benign prostatic hyperplasia) Diabetes mellitus Obesity (BMI 30-39.9) Pure hypercholesterolemia Prolonged QT interval Essential hypertension HOCM (hypertrophic obstructive cardiomyopathy) Aggression Hypertension Coronary artery disease CHF (congestive heart failure) Cardiac arrhythmia Myocardial infarction Schizoaffective disorder Surgical History History of ankle surgery History of intestinal surgery History of transurethral resection of prostate Family History Father Medical history unknown Mother Medical history unknown Sister Alive and well Social History Household Members: Friend(s) Household Members Other:: [facility] Housing: Apartment Housing Other:: [facility] Do you presently have visiting nurse or other home services: No Alcohol intake: never Comment: camera on. Patient Tobacco Use Status: Current everyday Tobacco user Tobacco use type: Cigarette Cigarette Packs Per Day: 0 Cigarettes Per Day: 10 Years Smoked: 40yrs e-Cigarette/Vaping Use: Never Used Second Hand Smoke Exposure: Yes Substance Use Type: Unknown service: No Current occupational status: disabled Sexual orientation: Did not discuss. Cognitive needs: Yes Hearing needs: No Vision needs: Yes Questionnaire PHQ-9 Over the last 2 weeks, how often have you been bothered by any of the following problems? 1. Little interest or pleasure in doing things: not at all 2. Feeling down, depressed, or hopeless: not at all 3. Trouble falling or staying asleep, or sleeping too much: not at all 4. Feeling tired or having little energy: not at all 5. Poor appetite or overeating: not at all 6. Feeling bad about yourself - or that you are a failure or have let yourself or your family down: not at all 7. Trouble concentrating on things, such as reading the newspaper or watching television: not at all 8. Moving or speaking so slowly that other people could have noticed. Or the opposite - being so fidgety or restless that you have been moving around a lot more than usual: not at all 9. Thoughts that you would be better off or of hurting yourself in some way: not at all Total score: 0 Depression Screening Interpretation: Negative (is on Rx) Depression Screening Done: Yes 93712 - PHQ-9 Billing: Yes Source: Developed by Drs. Ga Richard, Rosio Grigsby, Jose Johnson and colleagues, with an educational lulu from [employer]. Thrive Questionnaire Date Thrive assessed: 11/12/23 I am a: Patient What is your living situation today?: I have a steady place to live Within the past 12 months, did the food you bought not last and you didn't have the money to get more?: Never true Within the past 12 months, did you worry whether your food would run out before you got money to buy more?: Never true Do you have trouble paying for medicines?: No Do you have trouble getting transportation to medical appointments?: No Do you have trouble paying your heating and electricity bill?: No Do you have trouble taking care of your child, family member or friend?: No Do you have trouble with day-to-day activities such as bathing, preparing meals, shopping, managing finances, etc.?: No Are you currently unemployed and looking for a job?: No Are you interested in more education?: No Please select the resources that you would like help with: None Currently or been in a relationship where the following occur: no concerns reported THRIVE Score: 0 AUDIT C Alcohol Use Questionnaire (AUDIT-C) 1. How often do you have a drink containing alcohol?: Monthly or less 2. How many drinks containing alcohol do you have on a typical day when you are drinking?: 1 or 2 3. How often do you have six or more drinks on one occasion?: Never Total Score: 1 Score Reviewed/Action Taken: Yes LINN-7 AMB Questionnaire LINN-7 Date LINN - 7 assessed: 11/12/23 Feeling nervous, anxious, or on edge: 0 = Not at all Not being able to stop or control worryin = Not at all Worrying too much about different things: 0 = Not at all Trouble relaxin = Not at all Being so restless that it is hard to sit still: 0 = Not at all Becoming easily annoyed or irritable: 0 = Not at all Feeling afraid as if something awful might happen: 0 = Not at all Total LINN-7 score (0-4 normal; 5-9 mild; 10-14 moderate; 15-21 severe): 0 Source: Developed by Drs. Ga Richard, Rosio Grigsby, Jose Johnson and colleagues, with an educational lulu from [employer]. LINN-7 Assessment Billing LINN-7 Assessment Tool: LINN-7 Assessment 37033 Review of Systems Const Denies chills, Reports fatigue, Denies fever(s), Denies headache(s) and Reports weakness (on and off) ENT Denies dysphagia, Denies dizziness, Denies otalgia, Denies headache(s), Denies neck pain, Denies odynophagia and Denies sore throat Card Denies chest pain, Denies palpitations and Reports dyspnea on exertion (mild) Resp Denies chest congestion, Denies cough, Reports dyspnea on exertion (mild) and Denies wheezing GI Denies abdominal pain, Reports constipation (on and off), Denies dysphagia, Denies heartburn, Denies diarrhea, Denies nausea, Denies odynophagia and Denies vomiting Denies dysuria, Denies nocturia and Denies urinary frequency Musc Reports arthralgias (involving both knees, ankles and feet) and Denies neck pain Skin/Breast Details: healing wound on the right ankle Denies rash Neuro Denies dizziness, Denies headache(s) and Reports weakness (on and off) Endo Reports fatigue and Denies palpitations Aller/Immun Denies wheezing Physical exam (Primary Care) Vital Signs: Last Vital Signs Pulse 88 11/12/23 10:57 BP 110/70 11/12/23 10:57 Pulse Ox 96 11/12/23 10:57 Oxygen Delivery Method Room Air 11/12/23 10:57 BMI result Body Mass Index 36.6 Tobacco/Smoking Status: Tobacco use Status Tobacco use date assessed 11/12/23 11/12/23 11:05 Patient Tobacco Use Status Current everyday Tobacco 11/12/23 11:05 Tobacco use type Cigarette 11/12/23 11:05 e-Cigarette/Vaping Use Never Used 11/12/23 11:05 PHQ-9: PHQ-9 Score PHQ-9: Total score 0 11/12/23 11:05 Depression Screening Interpretation: Negative (is on Rx) Thrive Assessment: Date of Thrive Assessment Date Thrive assessed 11/12/23 11/12/23 11:05 Currently or been in a relationship where the following occur: no concerns reported Const General: no acute distress and alert HENMT Ears: TM's normal bilaterally and EAC's normal Throat: Yes posterior oropharynx normal and Yes tonsils normal (no TP congestion noted) Neck Neck: Yes no lymphadenopathy and Yes supple Thyroid: Thyroid normal Resp Auscultation: clear to auscultation bilaterally, no rales and no wheezes Cardio Rate: regular rate Rhythm: regular rhythm Heart sounds: Murmur heart sound present systolic mid, soft and at the left sternal border GI Palpation (GI): Soft to palpation and nontender Auscultation: normal bowel sounds Skin Rashes: no rashes Extrem Other: currently has bandages over his right ankle, so ankle is not examined at this time General: Yes no clubbing, cyanosis or edema Results Reviewed Results Reviewed: Laboratory Tests 11/04/23 11/04/23 11/04/23 06:47 06:47 07:02 WBC 6.6 Hgb 10.9 L Hct 35.0 L MCV 87.3 MCH 27.2 RDW 16.7 H Plt Count 106 L Sodium Potassium Creatinine Estimated GFR Random Glucose AST 13 ALT 16 B-Natriuretic Peptide 761 H 11/05/23 11/05/23 06:52 06:52 WBC Hgb Hct MCV MCH RDW Plt Count Sodium 145 Potassium 3.7 Creatinine 1.15 Estimated GFR > 60 Random Glucose 135 H AST ALT B-Natriuretic Peptide Assessment and Plan Assessment & Plan (1) COVID-19: Code(s): U07.1 - COVID-19 Plan: Resolving Patient tested positive for COVID when he presented to the ER with increasing SOB and fatigue as well as some respiratory symptoms He is reassured that his symptoms (particularly his fatigue and SOB) will continue to gradually improve over some time and that in another week or so, he should be okay to return to group activities unless his symptoms continue to prevent him from doing so (2) Acute and chronic respiratory failure with hypoxia: Code(s): J96.21 - Acute and chronic respiratory failure with hypoxia Plan: Improving/resolving - his oxygen saturation on room air today in the clinic is at 96% He was found to be hypoxic (oxygen saturation at 86% on 2 L oxygen ) when he was at the ER last week with COVID He still has his oxygen available for use at home when needed - was originally using it only at bedtime and as needed (3) Pure hypercholesterolemia: Code(s): E78.00 - Pure hypercholesterolemia, unspecified Plan: His labs done at the hospital last week did NOT include his fasting lipids; CHD did not help patient get any of his follow up labs done recently Reinforced low cholesterol diet Continue Atorvastatin 20 mg QD Will recheck his labs and fasting lipids in 3 months for follow up (4) Coronary artery disease: Code(s): I25.10 - Atherosclerotic heart disease of [place] coronary artery without angina pectoris Qualifiers: Coronary Disease-Associated Artery/Lesion type: [place] artery [place] vs. transplanted heart: [place] heart Associated angina: with stable angina Qualified Code(s): I25.118 - Atherosclerotic heart disease of [place] coronary artery with other forms of angina pectoris Plan: Continue Aspirin 81 mg QD Follow up with cardiology as scheduled (5) HOCM (hypertrophic obstructive cardiomyopathy): Code(s): I42.1 - Obstructive hypertrophic cardiomyopathy Plan: He was clinically stable for a while but his bout with COVID last week seems to have led to some CHF exacerbation, which appears to be resolving now He has a slight outflow tract murmur heard could be from LVOT obstruction - treatment will reportedly be very limited mainly because of his psychiatric issues, per cardiology Follow up echocardiogram done last month (October 2023) revealed normal left ventricular cavity size, with severely increased left ventricular wall thickness. The left ventricular systolic function is hyperdynamic and visually estimated ejection fraction is >70%, with (+) dynamic LVOT obstruction noted. No obvious CON seen as before. His resting LVOT peak gradient 40 mm Hg, post valsalva 123 mm Hg - this is significantly worse than previous study. Right ventricular cavity size and systolic function are normal. The left atrium is severely dilated, with mildly elevated right atrial pressure and mild dilatation of the sinuses of Valsalva measuring 4.00 cm and mild dilatation of the ascending aorta measuring 3.9 cm. Holter monitor done previously came out normal with no PVC or NSVT? Patient also had cardiac catheterization done back in 2016 that showed normal coronary arteries Follow-up with cardiology as scheduled (6) Prolonged QT interval: Code(s): R94.31 - Abnormal electrocardiogram [ECG] [EKG] Plan: Mostly due to his antipsychotics - will need close monitoring with cardiology (7) Essential hypertension: Code(s): I10 - Essential (primary) hypertension Plan: Reinforced low sodium diet - goal is systolic BP of at least 120 to 130 mm or less Continue Metoprolol ER 50 mg QD (8) Diabetes mellitus: Code(s): E11.9 - Type 2 diabetes mellitus without complications Qualifiers: Diabetes mellitus type: type 2 Diabetes mellitus senior living insulin use: without ad terminal makeup operator use Diabetes mellitus complication status: without complication Qualified Code(s): E11.9 - Type 2 diabetes mellitus without complications Plan: In-office HgbA1c was at 6.6% when last checked in February 2023 (was at 7.3% previously) and he has NOT had his HgbA1c checked since - goal is < 7.0% Reinforced diabetic diet Continue Metformin ER 500 mg QDand Tradjenta 5 mg QD Will recheck his labs and HgbA1c in 3 months for follow up (9) JUDY (obstructive sleep apnea): Code(s): G47.33 - Obstructive sleep apnea (adult) (pediatric) Plan: Patient is reminded to continue using his Oxygen when sleeping at night DAILY; he only needs to use it during the day as needed (if he feels SOB) Follow up with Sleep Medicine and with Pulmonary Medicine as scheduled (10) Pain in both feet: Code(s): M79.671 - Pain in right foot; M79.672 - Pain in left foot Plan: X-rays of both feet done previously showed (+) OA changes in both feet Advised again option of referral to Podiatry for further management if his foot symptoms persist or get worse (11) Bilateral ankle pain: Code(s): M25.571 - Pain in right ankle and joints of right foot; M25.572 - Pain in left ankle and joints of left foot Qualifiers: Chronicity: chronic Qualified Code(s): M25.571 - Pain in right ankle and joints of right foot; M25.572 - Pain in left ankle and joints of left foot; G89.29 - Other chronic pain Plan: Had some hardware (pin) removed from his right ankle by Dr. Arrieta in 10/2017 Ankle x-rays done last year revealed (+) osteoarthritis changes Follow up with orthopedics as scheduled (12) Bilateral knee pain: Code(s): M25.561 - Pain in right knee; M25.562 - Pain in left knee Qualifiers: Chronicity: unspecified Qualified Code(s): M25.561 - Pain in right knee; M25.562 - Pain in left knee Plan: Knee x-rays done a few months ago showed (+) OA changes in both knees Follow up with orthopedics as scheduled (13) BPH (benign prostatic hyperplasia): Code(s): N40.0 - Benign prostatic hyperplasia without lower urinary tract symptoms Qualifiers: Lower urinary tract symptom presence: symptoms present Lower urinary tract symptom detail: urinary frequency Qualified Code(s): N40.1 - Benign prostatic hyperplasia with lower urinary tract symptoms; R35.0 - Frequency of micturition Plan: Continue Alfuzosin ER 10 mg QD Follow up with urology as scheduled (14) Schizoaffective disorder: Code(s): F25.9 - Schizoaffective disorder, unspecified Qualifiers: Schizoaffective disorder type: bipolar Qualified Code(s): F25.0 - Schizoaffective disorder, bipolar type Plan: Continue Clozaril 200 mg + 75 mg Q HS, Lorazepam 1 mg BID and 0.5 mg Q HS and Latuda 60 mg QAM He is also now on Trazodone 50 mg Q HS for sleep Follow up with psychiatry (Freeman Rodríguez) as scheduled (15) Obesity (BMI 30-39.9): Code(s): E66.9 - Obesity, unspecified Plan: Reinforced diet; exercise and weight appear to be unrealistic expectations in patient at this time due to his mutliple physical and psychiatric comorbidities Plan Follow up in 3 months Orders: Orders Comprehensive [place]. Panel Fast 3 Months E78.00 - Pure hypercholesterolemia, unspecified Lipid Panel 3 Months E78.00 - Pure hypercholesterolemia, unspecified IRON PROFILE 3 Months D50.9 - Iron deficiency anemia, unspecified UA CC w/rflx Micro + Cult 3 Months R30.0 - Dysuria Vitamin B12 and Folate 3 Months E53.8 - Deficiency of other specified B group vitamins Hemoglobin A1c 3 Months E11.9 - Type 2 diabetes mellitus without complications Complete Blood Count Auto Diff 3 Months D64.9 - Anemia, unspecified TSH reflex Free T4 3 Months E78.00 - Pure hypercholesterolemia, unspecified Vitamin D 25-OH Total 3 Months E55.9 - Vitamin D deficiency, unspecified B Type Natriuretic Peptide 3 Months I50.9 - Heart failure, unspecified Coding Level of Care Code Est Pt Level 4 (90045) Diagnoses COVID-19 U07.1 Acute and chronic respiratory failure with hypoxia J96.21 Pure hypercholesterolemia E78.00 Coronary artery disease of [place] artery of [place] heart with stable angina pectoris I25.118 Coronary Disease-Associated Artery/Lesion type: [place] artery [place] vs. transplanted heart: [place] heart Associated angina: with stable angina HOCM (hypertrophic obstructive cardiomyopathy) I42.1 Prolonged QT interval R94.31 Essential hypertension I10 Type 2 diabetes mellitus without complication, without long-term current use of insulin E11.9 Diabetes mellitus type: type 2 Diabetes mellitus ad terminal makeup operator insulin use: without senior living use Diabetes mellitus complication status: without complication JUDY (obstructive sleep apnea) G47.33 Pain in both feet M79.671; M79.672 Chronic pain of both ankles M25.571; M25.572; G89.29 Chronicity: chronic Pain in both knees, unspecified chronicity M25.561; M25.562 Chronicity: unspecified Benign prostatic hyperplasia with urinary frequency N40.1; R35.0 Lower urinary tract symptom presence: symptoms present Lower urinary tract symptom detail: urinary frequency Schizoaffective disorder, bipolar type F25.0 Schizoaffective disorder type: bipolar Obesity (BMI 30-39.9) E66.9 Additional Codes LINN-7 Assessment Billing - LINN-7 Assessment Tool: LINN-7 Assessment [id number] ([id number])
== END 2023-11-12 11:51 | disposition home or self-care (01) ==
PROVIDERS: PCP Internal Medicine; Visit Provider Internal Medicine
DX: J96.21 Acute and chronic respiratory failure with hypoxia (principal); I25.118 Atherosclerotic heart disease of native coronary artery with other forms of angina pectoris; I42.1 Obstructive hypertrophic cardiomyopathy; E11.9 Type 2 diabetes mellitus without complications; U07.1 COVID-19; E78.00 Pure hypercholesterolemia, unspecified; R94.31 Abnormal electrocardiogram [ECG] [EKG]; I10 Essential (primary) hypertension; G47.33 Obstructive sleep apnea (adult) (pediatric); M79.671 Pain in right foot; M79.672 Pain in left foot; M25.571 Pain in right ankle and joints of right foot
CPT/HCPCS: 99214

== ENCOUNTER 2023-11-28 08:47 | Outpatient (REF) | payer OTHER, SELFPAY ==
[2023-11-28 09:14] LABS: MANUAL DIFF FLAG NO
[2023-11-28 09:36] LABS: Appearance Urine Clear; Color Urine Yellow; Glucose Urine UA Negative (Negative); Leukocyte Esterase Urine Negative (Negative); Nitrite Urine Negative (Negative); PH 5.5 (5.0-9.0); Specific Gravity - Urine <= 1.005 (1.005-1.025); Urine Blood Negative (Negative); Urine Ketones Negative (Negative); Urine Protein Negative (Neg-Trace)
[2023-11-28 09:37] LABS: Basophils Percent Auto 0.5 % (0-2); Eosinophils Absolute Auto 0.1 X10*3/uL (0.0-0.4); Eosinophils Percent Auto 1.1 % (0-4); Hematocrit 41.1 % (42.0-52.0); Hemoglobin 13.1 g/dl (14.0-18.0); Imm Gran Abs Auto 0.02 X10*3/uL (0.00-0.03); Imm Gran Pct Auto 0.3 % (0.0-0.4); Lymphocytes Absolute Auto 1.2 X10*3/uL (1.2-4.9); Lymphocytes Percent Auto 19.8 % (20-40); Mean Corpuscular HGB Conc 31.9 g/dl (31.0-36.0); Mean Corpuscular Hemoglobin 27.4 pg (27.0-33.0); Mean Platelet Volume 11.5 fL (9.4-12.4); Monocytes Absolute Auto 0.6 X10*3/uL (0.1-1.2); Monocytes Percent Auto 9.3 % (2-11); Neutrophils Absolute Auto 4.2 x10*3/uL (2.0-8.3); Platelet Count 137 X10*3/uL (160-400); Red Blood Count 4.78 X10*6/uL (4.60-5.80); Red Cell Distribution Width 15.2 % (11.0-16.0); White Blood Count 6.2 X10*3/uL (4.8-10.8)
[2023-11-28 09:39] LABS: Estimated Average Glucose 143 mg/dL; Hemoglobin A1c % 6.6 % (<6.0)
[2023-11-28 09:53] LABS: Creatinine Urine 33.82 mg/dL; Microalbum/Creatinine Ratio Ur 76.8 ug/mg cr (<30)
[2023-11-28 10:03] LABS: Alanine Aminotransferase 16 U/L (0-40); Albumin Level 4.2 g/dL (3.5-5.0); Alkaline Phosphatase 67 U/L (39-117); Anion Gap 15 (12-20); Aspartate Amino Transferase 13 U/L (5-37); Bilirubin Total 0.3 mg/dL (0.0-1.0); Blood Urea Nitrogen 13 mg/dL (9-16); Calcium 9.4 mg/dL (8.4-10.2); Carbon Dioxide 23 mmol/L (22-29); Chloride 112 mmol/L (96-108); Cholesterol 192 mg/dL (<200); Estimated Glomerular Filt Rate 59; Glucose Fasting 158 mg/dL (60-99); HDL Cholesterol 34 mg/dL (>40); LDL Cholesterol Calculated 106 mg/dL (<100); Potassium 3.7 mmol/L (3.3-5.1); Sodium 146 mmol/L (135-145); Total Protein 7.3 g/dL (6.5-8.0); Triglycerides 263 mg/dL (<150)
[2023-11-28 10:17] LABS: TSH reflex Free T4 0.82 uIU/mL (0.32-4.0)
== END 2023-11-28 08:48 | disposition home or self-care (01) ==
LOC: HO.LAB 08:47
PROVIDERS: Visit Provider Internal Medicine
DX: I10 Essential (primary) hypertension (principal); E78.00 Pure hypercholesterolemia, unspecified; E11.9 Type 2 diabetes mellitus without complications; R30.0 Dysuria; E29.1 Testicular hypofunction; E55.9 Vitamin D deficiency, unspecified
CPT/HCPCS: 36415; 80053; 80061; 81003; 82043; 82306; 82570; 83036; 84443; 85025

== ENCOUNTER 2023-12-28 13:39 | Outpatient (AMB) | payer OTHER, SELFPAY ==
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
== END 2023-12-28 15:12 | disposition home or self-care (01) ==
PROVIDERS: PCP Internal Medicine; Visit Provider Urology
DX: E29.1 Testicular hypofunction (principal); N40.1 Benign prostatic hyperplasia with lower urinary tract symptoms; R35.0 Frequency of micturition
CPT/HCPCS: 99213

== ENCOUNTER → 2023-12-28 13:39 | Outpatient (BNVA) | payer OTHER, SELFPAY | PROVIDERS: PCP Internal Medicine; Visit Provider Urology | DX: E29.1 Testicular hypofunction (principal); N40.1 Benign prostatic hyperplasia with lower urinary tract symptoms; R35.0 Frequency of micturition | CPT/HCPCS: 99212 ==

== ENCOUNTER 2023-12-30 16:10 | Inpatient (IN) | payer OTHER, MEDICAID, SELFPAY ==
--- NOTE | ~2023-12-30 | XR_ITS ---
EXAMINATION: KUB. Chest., Clinical indication: Chest pain and abdominal distention. COMPARISON: Chest 11/02/2023. TECHNIQUE: Chest one view. Abdomen one view. FINDINGS: Chest: The lungs are hypoexpanded but clear of acute process. Heart size and pulmonary vascularity is normal. No gross bony abnormality seen. ABDOMEN: There is distended stomach with recently ingested food. There are multiple dilated small bowel loops question small bowel obstruction versus ileus. XR/XR KUB IMPRESSION: 1. Hypoexpanded lungs without acute process. 2. Distended stomach with recently ingested food. There are dilated small bowel 3. loops, question small bowel obstruction versus ileus.
--- NOTE | ~2023-12-30 | XR_ITS ---
EXAMINATION: XR ABDOMEN KUB CLINICAL INDICATION: Distention COMPARISON: Abdominal KUB January 02, [address] abdomen pelvis January 01, 2024 TECHNIQUE: AP view of the abdomen. FINDINGS: The stomach appears dilated and debris-filled. No dilated air-filled loops of small bowel are identified. A normal amount of stool and air is present throughout the colon. Small pelvic calcifications are likely vascular in nature. No gross osseous abnormality. XR/XR KUB IMPRESSION: 1. The stomach appears dilated and debris-filled. 2. No dilated air-filled loops of small bowel are identified.
--- NOTE | ~2023-12-30 | XR_ITS ---
EXAMINATION: KUB. Chest., Clinical indication: Chest pain and abdominal distention. COMPARISON: Chest 11/02/2023. TECHNIQUE: Chest one view. Abdomen one view. FINDINGS: Chest: The lungs are hypoexpanded but clear of acute process. Heart size and pulmonary vascularity is normal. No gross bony abnormality seen. ABDOMEN: There is distended stomach with recently ingested food. There are multiple dilated small bowel loops question small bowel obstruction versus ileus. XR/XR chest 1V IMPRESSION: 1. Hypoexpanded lungs without acute process. 2. Distended stomach with recently ingested food. There are dilated small bowel 3. loops, question small bowel obstruction versus ileus.
--- NOTE | ~2023-12-30 | CT_ITS ---
EXAMINATION: CT ABDOMEN AND PELVIS WITHOUT CONTRAST CLINICAL INFORMATION: Abdominal distention, vomiting COMPARISON: 12/07/2014 TECHNIQUE: Multidetector volumetric imaging was performed from the superior aspect of the liver through the pubic symphysis. Sagittal and coronal reformatted images were obtained on the technologist's workstation. This CT examination was performed using dose optimization techniques as appropriate, variously including the following: *Automated exposure control *Adjustment of mA and/or kV according to patient size (this includes techniques or standardized protocols for targeted exams where dose is matched to indication/reason for exam; i.e. extremities or head) *Use of iterative reconstruction technique DLP: 917 mGy-cm FINDINGS: LUNG BASES: Mild bibasilar atelectasis. LIVER, GALLBLADDER, AND BILIARY TREE: The liver is normal in size, shape, and attenuation. There is branching pattern of gas in the left hepatic lobe which is favored to reflect portal venous gas rather than pneumobilia. Trace gas is also present in the right hepatic lobe. No biliary ductal dilatation is present. The gallbladder is unremarkable with no evidence of radiopaque gallstones, gallbladder wall thickening, or obvious pericholecystic inflammatory changes. PANCREAS: Moderate fatty atrophy. SPLEEN: Unremarkable. Trace perisplenic fluid. ADRENAL GLANDS: Unremarkable. KIDNEYS AND URETERS: No hydronephrosis or obstructing calculus bilaterally. BLADDER: Decompressed with a Finn catheter in place. GASTROINTESTINAL TRACT: Enteric tube terminates in the stomach. There are multiple dilated fluid and gas-filled loops of small bowel in the abdomen. There is a relatively gradual transition from dilated to nondilated small bowel in the right abdomen. Overall pattern is suspicious for a small bowel obstruction. There is stranding adjacent to a segment of dilated small bowel in the central abdomen with suspected associated pneumatosis such as on image 59/112, raising suspicion for sequelae of bowel ischemia. The colon appears unremarkable. The appendix is unremarkable. No discrete free air identified. ABDOMINAL WALL: There is a right anterior abdominal wall fat-containing ventral hernia. No herniation of bowel. Tiny fat-containing left inguinal hernia. LYMPH NODES: Normal. VASCULAR: Mild atherosclerotic calcification. PELVIC VISCERA: Unremarkable. OSSEOUS STRUCTURES: Multilevel endplate osteophytes in the spine. CT/CT abdomen pelvis wo IV con IMPRESSION: 1. Dilated loops of small bowel in the abdomen with a relatively gradual transition in the right abdomen to nondilated bowel, suspicious for a small bowel obstruction. There is a segment of dilated small bowel in the central abdomen with adjacent stranding and suspected pneumatosis, suspicious for sequelae of bowel ischemia. 2. Branching pattern of gas in the left hepatic lobe, favored to reflect portal venous gas related to pneumatosis as described above. Trace gas is also present in the right hepatic lobe. 3. Trace perisplenic fluid. 4. Right anterior abdominal wall fat-containing ventral hernia. This critical result was discussed with Dr. Ray on 01/01/2024 5:56 AM, and it was ascertained that the content and urgency of the report was understood at the time of direct communication.
--- NOTE | ~2023-12-30 | XR_ITS ---
EXAMINATION: XR ABDOMEN KUB CLINICAL INDICATION: Small bowel obstruction COMPARISON: 12/30/2013 TECHNIQUE: AP view of the abdomen. FINDINGS: Again seen is evidence of small bowel obstruction with dilated loops in the midabdomen. Loop diameters appear increased when compared to study from 2 days ago when maximal dimension was about 6.2 cm compared with 7.4 cm in today's study. No free intraperitoneal air is seen. Gas and stool seen throughout the colon indicating that obstruction is not complete. XR/XR KUB IMPRESSION: Small bowel obstruction with increasing loop diameters.
[2023-12-30 15:58] VITALS: BP 144/88; PULSE 93; O2SAT 96
[2023-12-30 16:00] VITALS: BP 143/87; PULSE 88; RESP 20; TEMP 37; BMI 37.1
--- NOTE | 2023-12-30 16:22 | ECG_ITS ---
Test Reason : diarrhea Blood Pressure : / mmHG Vent. Rate : 085 BPM Atrial Rate : 085 BPM P-R Int : 178 ms QRS Dur : 106 ms QT Int : 410 ms P-R-T Axes : 070 037 186 degrees QTc Int : 487 ms Normal sinus rhythm Incomplete left bundle branch block ST & T wave abnormality, consider inferolateral ischemia Prolonged QT Abnormal ECG When compared with ECG of 02-NOV-2023 23:34, No significant change was found Referred By: Nicole Rdz Electronically Signed By:Javier Bah
--- NOTE | 2023-12-30 16:23 | ED_ITS ---
HPI - Nausea/Vomiting/Diarrhea General Chief complaint: Nausea/Vomiting/Diarrhea Stated complaint: from GH, diarrhea x2 days, vomiting, hx diabetes Source: patient and EMS Mode of arrival: EMS Limitations: no limitations History of Present Illness HPI Narrative: Patient comes [facility] emergency room [facility] a [facility]. Patient complaining of diarrhea. Patient states that he has been given multiple doses of senna at the [facility] and now he has diarrhea. Patient reported 1 episodes of vomiting today. Patient complaining of mild diffuse abdominal cramping intermittently. No significant pain. Denies chest pain or shortness of breath. Related Data Home Medications Medication Instructions Recorded Confirmed docusate sodium 100 mg capsule 1 cap PO BID 08/18/22 12/28/23 acetaminophen 500 mg tablet 500 mg PO Q6H PRN Pain 04/20/23 12/28/23 atorvastatin 20 mg tablet 20 mg PO BEDTIME 04/20/23 12/28/23 clozapine 100 mg tablet 200 mg PO BEDTIME 04/20/23 12/28/23 clozapine 25 mg tablet 75 mg PO BEDTIME 04/20/23 12/28/23 lorazepam 0.5 mg tablet 0.5 mg PO BEDTIME 04/20/23 12/28/23 lorazepam 1 mg tablet 1 mg PO BID@0800,1600 04/20/23 12/28/23 polyethylene glycol 3350 17 17 g PO DAILY PRN Constipation 04/20/23 12/28/23 gram/dose oral powder (Miralax) albuterol sulfate 90 mcg/actuation 2 puff inhalation Q6H PRN 10/10/23 12/28/23 aerosol inhaler Shortness Of Breath Or Wheezing aluminum-mag hydroxide-simethicone 10 ml PO TID PRN indegestion 10/10/23 12/28/23 200 mg-200 mg-20 mg/5 mL oral susp aspirin 81 mg tablet,delayed 81 mg PO DAILY 10/10/23 12/28/23 release testosterone 1.62 % (20.25 mg/1.25 2 packet transdermal DAILY 10/10/23 12/28/23 gram) transdermal gel packet (AndroGel) linagliptin 5 mg tablet (Tradjenta) 5 mg PO DAILY 11/03/23 12/28/23 losartan 25 mg tablet 25 mg PO DAILY 11/03/23 12/28/23 lurasidone 60 mg tablet 60 mg PO DAILY 11/03/23 12/28/23 trazodone 50 mg tablet 50 mg PO BEDTIME 11/03/23 12/28/23 Previous Rx's Medication Instructions Recorded alfuzosin 10 mg tablet,extended 10 mg PO BEDTIME 90 days #90 tabs 01/03/23 release 24 hr cholecalciferol (vitamin D3) 25 25 mcg PO DAILY #90 tabs 08/06/23 mcg (1,000 unit) tablet furosemide 20 mg tablet 20 mg PO DAILY #30 tabs 10/15/23 metoprolol succinate 50 mg 50 mg PO BID #60 tabs 10/24/23 tablet,extended release 24 hr dexamethasone 4 mg tablet 4 mg PO DAILY #7 tabs 11/05/23 senna leaf extract 176 mg/5 mL 15 ml PO BEDTIME PRN for 12/17/23 oral syrup (senna) constipation #237 mL testosterone 1 % (50 mg/5 gram) 2 packet transdermal DAILY 30 days 12/28/23 transdermal gel packet #300 grams Allergies Allergy/AdvReac Type Severity Reaction Status Date / Time lithium [[place]] Allergy Severe TOXICITY Verified 12/30/23 15:59 thiothixene Allergy Severe SWELLING Verified 12/30/23 15:59 barium sulfate Allergy Intermediate NAUSEA & Verified 12/30/23 15:59 [BARIUM SULFATE] VOMITING haloperidol Allergy Intermediate MUSCLE Verified 12/30/23 15:59 TENSION IN LEGS benztropine Allergy Unknown benztropine Verified 12/30/23 15:59 mesylate- unknown diphenhydramine Allergy Unknown urinary Verified 12/30/23 15:59 [From Benadryl] retention fluphenazine Allergy Unknown UNKNOWN Verified 12/30/23 15:59 gabapentin [From NEURONTIN] Allergy Unknown UNKNOWN Verified 12/30/23 15:59 prolixen Allergy Unknown Unknown Uncoded 12/04/23 13:07 Review of Systems 2 Review of Systems: Constitutional : No Weight loss, No Fever, No Chills, No Night Sweats, No Fatigue, No Malaise ENT/Mouth : No Hearing loss, No Ear Pain, No Nasal Congestion, No Sinus Pain, No Hoarseness, No sore throat, No Rhinorrhea, No Swallowing Difficulty Eyes: No Eye Pain, No Swelling, No Redness, No Foreign Body, No Discharge, No Vision Changes Cardiovascular : No Chest Pain, No SOB, No Dyspnea on Exertion, No Orthopnea, No Edema, No Palpitations Respiratory : No Cough, No Sputum, No Wheezing, No Smoke Exposure, No Dyspnea Gastrointestinal : Complaining of 1 episode of vomiting, multiple episodes of diarrhea, abdominal cramping, no significant pain Genitourinary : no irregular bleeding, No Dysuria, No Urinary Frequency, No Hematuria, No Urinary Incontinence, No Urgency, No Flank Pain, No Urinary Flow Changes, No Hesitancy Musculoskeletal : No joint pain, No Myalgias, No Joint Swelling Skin : No Skin Lesions, No rash Neuro : No Weakness, No Numbness, No Paresthesias, No Loss of Consciousness, No Dizziness, No Headache Psych : No Anxiety/Panic, No Depression, No SI/HI/AH/VH, No Social Issues, Heme/Lymph: No Bruising, No Bleeding,No Lymphadenopathy Endocrine : No Polyuria, No Polydipsia, No Temperature Intolerance [facility] Past Medical History Medical History Congestive heart failure COVID-19 Thought disorder Nocturnal hypoxemia Constipation COPD (chronic obstructive pulmonary disease) JUDY (obstructive sleep apnea) Smoker BPH (benign prostatic hyperplasia) Diabetes mellitus Obesity (BMI 30-39.9) Pure hypercholesterolemia Prolonged QT interval Essential hypertension HOCM (hypertrophic obstructive cardiomyopathy) Aggression Hypertension Coronary artery disease CHF (congestive heart failure) Cardiac arrhythmia Myocardial infarction Schizoaffective disorder Surgical History History of ankle surgery History of intestinal surgery History of transurethral resection of prostate Family History Family History Father Medical history unknown Mother Medical history unknown Sister Alive and well Social History Social History (System 12/04/23 @ 13:07 by Jaky Solis) Household Members: Friend(s) Household Members Other:: half-way Housing: Apartment Housing Other:: half-way Do you presently have visiting nurse or other home services: No Alcohol intake: never Comment: camera on. Patient Tobacco Use Status: Current everyday Tobacco user Tobacco use type: Cigarette Cigarette Packs Per Day: 0 Cigarettes Per Day: 10 Years Smoked: 40yrs e-Cigarette/Vaping Use: Never Used Second Hand Smoke Exposure: Yes Substance Use Type: Unknown Advance Directives: No Advance Directives Information Provided: No service: No Current occupational status: disabled Sexual orientation: Did not discuss. Cognitive needs: Yes Hearing needs: No Vision needs: Yes Physical Exam 2 Vital Signs: Vital Signs: Last Vital Signs Temp 98.6 F 12/30/23 16:00 Pulse 88 12/30/23 16:00 Resp 20 12/30/23 16:00 BP 143/87 H 12/30/23 16:00 O2 Del Method Room Air 12/30/23 16:00 BMI result Body Mass Index 37.1 Const: Other: Appearance: Alert. Oriented X3. No acute distress. Eyes: Pupils equal, round and reactive to light. ENT: Pharynx normal. Neck: Normal inspection. Neck supple. No lymph nodes noted. No crepitus CVS: Normal heart rate and rhythm. Pulses normal. Normal S1 and S2 Respiratory: No respiratory distress. Breath sounds normal. No Wheezing. No rales Abdomen: Soft and nontender. No rigidity. No distention. Skin: Skin warm and dry. Normal skin color. Normal skin turgor. Extremities: No lower extremity edema. No Lacerations. No Rash Neuro: Oriented X 3. No motor deficit. No sensory deficit. Moving all extremities. No slurred speech. CN 2 through 12 grossly intact Psych: calm, cooperative, normal affect Course Course Course Narrative: -all of patient's labs pending -patient receiving IV fluids, 1 dose of loperamide Medications Administered Discontinued Medications Generic Name Dose Route Start Last Admin Trade Name Freq PRN Reason Stop Dose Admin Sodium Chloride 1,000 mls @ 999 mls/hr 12/30/23 16:22 12/30/23 18:21 Ns IVCONT 12/30/23 17:22 Infused .Q1H1M ONE Infusion Sodium Chloride 1,000 mls @ 999 mls/hr 12/30/23 18:42 12/30/23 22:34 Ns IVCONT 12/30/23 19:42 Infused .Q1H1M ONE Infusion Loperamide HCl 2 mg 12/30/23 16:22 12/30/23 16:52 Loperamide Hcl 2 Mg Capsule PO 12/30/23 16:23 2 mg ONCE ONE Administration Medical Decision Making Medical Decision Making [facility] Narrative: -my interpretation of EKG: Sinus tachycardia, heart rate 85, no ST segment depression or elevation, chronic T-wave inversions V4 through V6 previously seen on EKGs, QTC 487, chronic My interpretation of labs: Normal hematology, chemistry shows a creatinine of 3.07 which is above patient's baseline of 1.2. -patient was being given 2 L IV fluids, chemistry was rechecked, improved to 2.28 -I discussed the patient with Dr. Currie, patient being admitted for JUHI/dehydration Differential Diagnosis Differential Diagnoses: The differential diagnosis associated with the presentation includes (Dehydration, JUHI, gastroenteritis) Admission/Observation Consideration of admission/observation: Escalation of care including admission/observation considered Consult Healthcare Provider Management of the patient was discussed with: Hospitalist Lab Data [facility] Lab Attestation statement: I reviewed the patient's lab results. 12/30/23 16:50 12/30/23 22:30 Labs: Lab Results 12/30/23 12/30/23 Range/Units 16:50 22:30 WBC 7.7 (4.8-10.8) X10*3/uL RBC 5.56 (4.60-5.80) X10*6/uL Hgb 15.2 (14.0-18.0) g/dl Hct 47.3 (42.0-52.0) % MCV 85.1 (80.0-98.0) fL MCH 27.3 (27.0-33.0) pg MCHC 32.1 (31.0-36.0) g/dl RDW 15.1 (11.0-16.0) % Plt Count 196 D (160-400) X10*3/uL MPV 12.4 (9.4-12.4) fL Immature Gran % (Auto) 0.4 (0.0-0.4) % Neut % (Auto) 79.6 H (45-73) % Lymph % (Auto) 8.8 L (20-40) % Falls % (Auto) 11.1 H (2-11) % Eos % (Auto) 0.0 (0-4) % Baso % (Auto) 0.1 (0-2) % Lymph # (Auto) 0.7 L (1.2-4.9) X10*3/uL Falls # (Auto) 0.9 (0.1-1.2) X10*3/uL Eos # (Auto) 0.0 (0.0-0.4) X10*3/uL Baso # (Auto) 0.0 (0.0-0.2) X10*3/uL Abs Immat Gran (auto) 0.03 (0.00-0.03) X10*3/uL Absolute Neuts (auto) 6.1 (2.0-8.3) x10*3/uL Absolute Nucleated RBC 0.000 (0.0-0.012) X10*3/uL Nucleated RBC % (auto) 0.0 (0.0-0.2) /100WBC Smear Tech's Comments VERIFIED Sodium 143 146 H (135-145) mmol/L Potassium 4.3 3.6 (3.3-5.1) mmol/L Chloride 106 112 H (96-108) mmol/L Carbon Dioxide 25 22 (22-29) mmol/L Anion Gap 16 16 (12-20) BUN 35 H 35 H (9-16) mg/dL Creatinine 3.07 H 2.28 H (0.5-1.4) mg/dL Estim Creat Clear Calc 29.3 39.4 Estimated GFR 21 30 Random Glucose 154 H 133 H (60-115) mg/dL Calcium 10.0 D 8.7 D (8.4-10.2) mg/dL Magnesium 2.0 (1.6-2.6) mg/dL Total Bilirubin 0.6 (0.0-1.0) mg/dL Direct Bilirubin 0.2 (0.0-0.5) mg/dL AST 29 (5-37) U/L ALT 16 (0-40) U/L Alkaline Phosphatase 70 (39-117) U/L Total Protein 8.6 H (6.5-8.0) g/dL Albumin 4.5 (3.5-5.0) g/dL Lipase 22 (8-78) U/L Independent Interpretation I performed an independent interpretation of an: EKG (My interpretation of EKG: Normal sinus rhythm, heart rate 85, no ST segment depression or elevation, old T-wave inversions in V4 through V6, QTC 487, chronic prolonged QT) Critical Care Time Critical Care Time Critical Care Time: Yes Total Critical Care Time: 60 Attestation: I have personally provided critical care time. Time includes review of lab data, radiology results, discussion with consultants, and monitoring for potential decompensation. Intervention performed as documented. Discharge Plan Discharge Clinical Impression: Acute dehydration, Diarrhea, JUHI (acute kidney injury) Patient Disposition: Admitted As Inpatient Prescriptions: No Action alfuzosin 10 mg tablet extended release 24 hr 10 mg PO BEDTIME 90 Days Qty: 90 1RF Rx Instructions: Take before bedtime cholecalciferol (vitamin D3) 25 mcg (1,000 unit) tablet 25 mcg PO DAILY Qty: 90 0RF metoprolol succinate 50 mg tablet extended release 24 hr 50 mg PO BID Qty: 60 2RF senna leaf extract [senna] 176 mg/5 mL syrup 15 ml PO BEDTIME PRN (Reason: for constipation) Qty: 237 9RF docusate sodium 100 mg capsule 1 cap PO BID atorvastatin 20 mg tablet 20 mg PO BEDTIME clozapine 100 mg tablet 200 mg PO BEDTIME clozapine 25 mg tablet 75 mg PO BEDTIME lorazepam 1 mg tablet 1 mg PO BID@0800,1600 lorazepam 0.5 mg Tablet 0.5 mg PO BEDTIME polyethylene glycol 3350 [Miralax] 17 gram/dose Powder 17 g PO DAILY PRN (Reason: Constipation) acetaminophen 500 mg Tablet 500 mg PO Q6H PRN (Reason: Pain) losartan 25 mg tablet 25 mg PO DAILY trazodone 50 mg tablet 50 mg PO BEDTIME lurasidone 60 mg tablet 60 mg PO DAILY Tradjenta 5 mg tablet 5 mg PO DAILY dexamethasone 4 mg tablet 4 mg PO DAILY Qty: 7 0RF testosterone [AndroGel] 1.62 % (20.25 mg/1.25 gram) gel in packet 2 packet TRANSDERMAL DAILY Rx Instructions: apply 20.25 mg /1 packet to max area of EACH upper arm and shoulder alum-mag hydroxide-simeth 200-200-20 mg/5 mL Suspension 10 ml PO TID PRN (Reason: indegestion) Rx Instructions: administer between meals and at bedtime albuterol sulfate 90 mcg/actuation HFA aerosol inhaler 2 puff inhalation Q6H PRN (Reason: Shortness Of Breath Or Wheezing) aspirin 81 mg Tablet,Delayed Release (Dr/Ec) 81 mg PO DAILY furosemide 20 mg Tablet 20 mg PO DAILY Qty: 30 0RF Protocol: Hold for SBP< HOLD for SBP < : 90 testosterone 1 % (50 mg/5 gram) gel in packet 2 packet transdermal DAILY 30 Days Qty: 300 5RF
[2023-12-30] MEDS: Loperamide HCl 2 MG CAPSULE PO (16:52)
[2023-12-30] MEDS: 0.9 % Sodium Chloride 1,000 ML 999 ML IVCONT ×2 (16:52→20:18)
[2023-12-30 16:59] LABS: Basophils Percent Auto 0.1 % (0-2); Hematocrit 47.3 % (42.0-52.0); Hemoglobin 15.2 g/dl (14.0-18.0); Imm Gran Abs Auto 0.03 X10*3/uL (0.00-0.03); Imm Gran Pct Auto 0.4 % (0.0-0.4); Lymphocytes Absolute Auto 0.7 X10*3/uL (1.2-4.9); Lymphocytes Percent Auto 8.8 % (20-40); MANUAL DIFF FLAG SCAN; Mean Corpuscular HGB Conc 32.1 g/dl (31.0-36.0); Mean Corpuscular Hemoglobin 27.3 pg (27.0-33.0); Mean Corpuscular Volume 85.1 fL (80.0-98.0); Mean Platelet Volume 12.4 fL (9.4-12.4); Monocytes Absolute Auto 0.9 X10*3/uL (0.1-1.2); Monocytes Percent Auto 11.1 % (2-11); Neutrophils Absolute Auto 6.1 x10*3/uL (2.0-8.3); Neutrophils Percent Auto 79.6 % (45-73); PLT CLUMP 1; Red Blood Count 5.56 X10*6/uL (4.60-5.80); Red Cell Distribution Width 15.1 % (11.0-16.0); SCAN SMEAR FLAG 1
[2023-12-30 17:17] LABS: Alanine Aminotransferase 16 U/L (0-40); Albumin Level 4.5 g/dL (3.5-5.0); Alkaline Phosphatase 70 U/L (39-117); Anion Gap 16 (12-20); Aspartate Amino Transferase 29 U/L (5-37); Bilirubin Direct 0.2 mg/dL (0.0-0.5); Bilirubin Total 0.6 mg/dL (0.0-1.0); Blood Urea Nitrogen 35 mg/dL (9-16); Carbon Dioxide 25 mmol/L (22-29); Chloride 106 mmol/L (96-108); Creatinine Clr Calc Pharmacy 29.3; Estimated Glomerular Filt Rate 21; Glucose Random 154 mg/dL (60-115); Lipase 22 U/L (8-78); Platelet Count 196 X10*3/uL (160-400); Potassium 4.3 mmol/L (3.3-5.1); SLIDE REVIEW VERIFIED; Sodium 143 mmol/L (135-145); Total Protein 8.6 g/dL (6.5-8.0); White Blood Count 7.7 X10*3/uL (4.8-10.8)
--- NOTE | 2023-12-30 19:47 | PC.NURSE ---
Second normal saline administration delayed due to prior bag being slow to infuse. Bag was mostly full when I took over for the pt at 1900. Placed a pillow under his arm to assist in keeping it straight, and a pole was brought in to give the bag height to speed up administration. Pt is resting in bed at this time, no complaints.
--- NOTE | 2023-12-30 20:18 | PC.NURSE ---
2nd IV placed in the right AC to get fluids in quicker. Fluids running into both IV's at this time.
--- NOTE | 2023-12-30 21:36 | PC.NURSE ---
Pt stating some urination urgency but is unable to void on his own. Pt stated he has a history of urinary retention. I bladder scanned the pt, resulting in 111mL. Dr Rdz aware, does not want to catheterize at this time.
[2023-12-30 22:53] LABS: Anion Gap 16 (12-20); Blood Urea Nitrogen 35 mg/dL (9-16); Calcium 8.7 mg/dL (8.4-10.2); Carbon Dioxide 22 mmol/L (22-29); Chloride 112 mmol/L (96-108); Creatinine Clr Calc Pharmacy 39.4; Estimated Glomerular Filt Rate 30; Glucose Random 133 mg/dL (60-115); Potassium 3.6 mmol/L (3.3-5.1); Sodium 146 mmol/L (135-145)
--- NOTE | 2023-12-31 00:35 | PC.NURSE ---
Addendum entered by Priscila Guadalupe RN 12/31/23 01:19: Bladder scan resulted in 228mL. Informed hospitalist and requested to catheter the patient. Original Note: Pt is still reporting discomfort in the bladder area. Discussed the option of a catheter with Dr Rdz but was instructed to hold off as we do not want to increase risk for urinary infection. Pt has no complaints otherwise.
--- NOTE | 2023-12-31 00:45 | PM.IMHP ---
History of Present Illness Date of Service: 12/31/23 Attending physician on admission: Diego Booth Chief Complaint: Diarrhea Navid Carvalho this is a 58 years old man with past medical history significant for type 2 diabetes mellitus, essential hypertension, HOCM, hyperlipidemia, COPD, obstructive sleep apnea, constipation and schizoaffective disorder was brought to the emergency department complaining of diarrhea after receiving multiple doses of senna for constipation. He had an episode of vomiting and complained of generalized abdominal discomfort. He took Imodium. Denies headache, chest pain or shortness on breath. Patient told me he thinks his retaining urine. In the ED, he was found to have stable vital signs. Blood workup showed normal WBC count, platelets and hemoglobin. Sodium is slightly elevated 146. Initial creatinine was 3.07 and decreased to 2.26 in fact hours. Urinalysis normal. Review of Systems Review of Systems: All 12 systems were reviewed and normal except as noted in HPI. [facility] Medical History Congestive heart failure COVID-19 Thought disorder Nocturnal hypoxemia Constipation COPD (chronic obstructive pulmonary disease) JUDY (obstructive sleep apnea) Smoker BPH (benign prostatic hyperplasia) Diabetes mellitus Obesity (BMI 30-39.9) Pure hypercholesterolemia Prolonged QT interval Essential hypertension HOCM (hypertrophic obstructive cardiomyopathy) Aggression Hypertension Coronary artery disease CHF (congestive heart failure) Cardiac arrhythmia Myocardial infarction Schizoaffective disorder Family History Father Medical history unknown Mother Medical history unknown Sister Alive and well Surgical History History of ankle surgery History of intestinal surgery History of transurethral resection of prostate Social History (System 12/04/23 @ 13:07 by Jaky Solis) Household Members: None Household Members Other:: skilled nursing Housing: Other Housing Other:: gr. home Do you presently have visiting nurse or other home services: No Alcohol intake: never Comment: camera on. Patient Tobacco Use Status: Never used Tobacco Tobacco use type: Cigarette Cigarette Packs Per Day: 0 Cigarettes Per Day: 10 Years Smoked: 40yrs e-Cigarette/Vaping Use: Never Used Second Hand Smoke Exposure: Yes Use of substances other than those prescribed or required for medical reasons: No Substance Use Type: Unknown Have you been hit, kicked, punched, or otherwise hurt by someone within the past year? If so, by whom?: No Do you feel safe in your current relationship?: No Current Relationship Is there a partner from a previous relationship who is making you feel unsafe now?: No Are you made to feel afraid or neglected: No Advance Directives: No Advance Directives Information Provided: No Recently lost weight without trying: No How much weight loss: Not applicable Nutrition Risks: No Nutritional Risk Poor oral hygiene: No service: No Current occupational status: disabled Sexual orientation: Did not discuss. Cognitive needs: Yes Hearing needs: No Vision needs: Yes Meds Allergies Allergy/AdvReac Type Severity Reaction Status Date / Time lithium [Muse] Allergy Severe TOXICITY Verified 12/30/23 15:59 thiothixene Allergy Severe SWELLING Verified 12/30/23 15:59 barium sulfate Allergy Intermediate NAUSEA & Verified 12/30/23 15:59 [BARIUM SULFATE] VOMITING haloperidol Allergy Intermediate MUSCLE Verified 12/30/23 15:59 TENSION IN LEGS benztropine Allergy Unknown benztropine Verified 12/30/23 15:59 mesylate- unknown diphenhydramine Allergy Unknown urinary Verified 12/30/23 15:59 [From Benadryl] retention fluphenazine Allergy Unknown UNKNOWN Verified 12/30/23 15:59 gabapentin [From NEURONTIN] Allergy Unknown UNKNOWN Verified 12/30/23 15:59 prolixen Allergy Unknown Unknown Uncoded 12/04/23 13:07 Active Medications: Current Medications Acetaminophen (Acetaminophen 325 Mg Tablet) 650 mg PO Q6H PRN PRN Reason: Pain, Mild (Pain Scale 1-3) Heparin Sodium (Porcine) (Heparin Sodium,Porcine 5,000 Unit/Ml Vial) 5,000 unit SUBCUT Q8H [facility] Lactated Ringer's (Lr) 1,000 mls @ 125 mls/hr IVCONT .Q8H [facility] Sodium Chloride (0.9 % Sodium Chloride Flush 3 Ml Syringe) 3 ml IVFLUSH QSHIFT [facility] Home Medications Medication Instructions Recorded Confirmed Last Taken Type docusate sodium 100 mg capsule 1 cap PO BID 08/18/22 12/28/23 11/02/23 History acetaminophen 500 mg tablet 500 mg PO Q6H PRN Pain 04/20/23 12/28/23 Unknown History atorvastatin 20 mg tablet 20 mg PO BEDTIME 04/20/23 12/28/23 11/01/23 History clozapine 100 mg tablet 200 mg PO BEDTIME 04/20/23 12/28/23 11/01/23 History clozapine 25 mg tablet 75 mg PO BEDTIME 04/20/23 12/28/23 11/01/23 History lorazepam 0.5 mg tablet 0.5 mg PO BEDTIME 04/20/23 12/28/23 11/01/23 History lorazepam 1 mg tablet 1 mg PO BID@0800,1600 04/20/23 12/28/23 11/02/23 History polyethylene glycol 3350 17 17 g PO DAILY PRN Constipation 04/20/23 12/28/23 Unknown History gram/dose oral powder (Miralax) albuterol sulfate 90 mcg/actuation 2 puff inhalation Q6H PRN 10/10/23 12/28/23 Unknown History aerosol inhaler Shortness Of Breath Or Wheezing aluminum-mag hydroxide-simethicone 10 ml PO TID PRN indegestion 10/10/23 12/28/23 Unknown History 200 mg-200 mg-20 mg/5 mL oral susp aspirin 81 mg tablet,delayed 81 mg PO DAILY 10/10/23 12/28/23 11/02/23 History release testosterone 1.62 % (20.25 mg/1.25 2 packet transdermal DAILY 10/10/23 12/28/23 11/02/23 History gram) transdermal gel packet (AndroGel) linagliptin 5 mg tablet (Tradjenta) 5 mg PO DAILY 11/03/23 12/28/23 11/02/23 History losartan 25 mg tablet 25 mg PO DAILY 11/03/23 12/28/23 11/02/23 History lurasidone 60 mg tablet 60 mg PO DAILY 11/03/23 12/28/23 11/02/23 History trazodone 50 mg tablet 50 mg PO BEDTIME 11/03/23 12/28/23 11/01/23 History Physical Exam Vital Signs and Narrative: Vital Signs: Last Vital Signs Temp 98.6 F 12/30/23 16:00 Pulse 88 12/30/23 16:00 Resp 20 12/30/23 16:00 BP 143/87 H 12/30/23 16:00 O2 Del Method Room Air 12/30/23 16:00 BMI result Body Mass Index 37.1 Constitutional - Awake and Alert, No apparent distress. HEENT - Dry oral mucosa. Heart - S1S2, RRR. Lungs - Normal lung expansion, Normal respiratory effort, No respiratory distress, CTA bilaterally Abdomen - increased bowel sounds. Not distended. Pelvic tenderness without rebound or guarding. Extremities - no calf tenderness bilaterally, no swelling Musculoskeletal - Normal inspection, normal ROM Skin - Warm/Dry Neurological - Alert & oriented x3. No focal weakness. Delayed speech. Psychological - Appropriate affect Results Labs 12/30/23 16:50 12/30/23 22:30 Labs: Laboratory Results - last 24 hr 12/30/23 12/30/23 16:50 22:30 MCV 85.1 MCH 27.3 MCHC 32.1 RDW 15.1 Plt Count 196 D MPV 12.4 Immature Gran % (Auto) 0.4 Neut % (Auto) 79.6 H Lymph % (Auto) 8.8 L [place] % (Auto) 11.1 H Eos % (Auto) 0.0 Baso % (Auto) 0.1 Lymph # (Auto) 0.7 L [place] # (Auto) 0.9 Eos # (Auto) 0.0 Baso # (Auto) 0.0 Abs Immat Gran (auto) 0.03 Absolute Neuts (auto) 6.1 Absolute Nucleated RBC 0.000 Nucleated RBC % (auto) 0.0 Smear Tech's Comments VERIFIED Anion Gap 16 16 Estim Creat Clear Calc 29.3 39.4 Estimated GFR 21 30 Random Glucose 154 H 133 H Calcium 10.0 D 8.7 D Magnesium 2.0 Total Bilirubin 0.6 Direct Bilirubin 0.2 AST 29 ALT 16 Alkaline Phosphatase 70 Total Protein 8.6 H Albumin 4.5 Lipase 22 Assessment and Plan (1) JUHI (acute kidney injury): Status: Acute (2) Diarrhea: Qualifiers: Diarrhea type: unspecified type Qualified Code(s): R19.7 - Diarrhea, unspecified Status: Acute (3) Acute dehydration: Status: Acute (4) BPH (benign prostatic hyperplasia): Qualifiers: Lower urinary tract symptom presence: symptoms present Lower urinary tract symptom detail: urinary frequency Qualified Code(s): N40.1 - Benign prostatic hyperplasia with lower urinary tract symptoms; R35.0 - Frequency of micturition Status: Acute (5) Urinary retention: Status: Acute (6) JUDY (obstructive sleep apnea): Status: Acute (7) Essential hypertension: Status: Acute (8) Coronary artery disease: Qualifiers: Coronary Disease-Associated Artery/Lesion type: [place] artery [place] vs. transplanted heart: [place] heart Associated angina: with stable angina Qualified Code(s): I25.118 - Atherosclerotic heart disease of [place] coronary artery with other forms of angina pectoris Status: Acute Plan Navid Carvalho this is a 58 years old man admitted with: Acute kidney injury secondary to diarrhea due to laxative therapy. Admit to hospitalist service. Continue IV fluids. Hold furosemide, losartan and senna. Continue to monitor renal function. Avoid nephrotoxic agents. Urinary retention secondary to BPH likely contributing to above. Indwelling urinary catheter placed. Continue alfuzosin. Hypernatremia, mild. Likely secondary to IV fluids and/or poor p.o. oral intake. Essential hypertension. Continue metoprolol. Losartan on hold due to above. Type 2 diabetes mellitus. Blood glucose monitoring before meals at bedtime. Hold linagliptin. Insulin sliding scale. Diabetic diet. Schizoaffective disorder. Continue clozapine, lurasidone and trazodone. Obstructive sleep apnea. CPAP at bedtime. Coronary artery disease. Continue atorvastatin and aspirin. Hyperlipidemia. Continue statin. HOCM. No symptoms reported. COPD. No symptoms reported. DVT prophylaxis: Heparin subcut Code status: Full Patient will need hospitalization for at least 2 midnights for acute kidney injury therapy with IV fluids and close monitoring of renal function. Quality Stroke Does the patient have a stroke diagnosis?: No VTE Prior VTE?: No VTE Risk Level:: Medical - moderate - high VTE Device Contraindication: Treatment Not Indicated VTE Drug Contraindication: N/A - Med Ordered
[2023-12-31 01:28] VITALS: BP 131/78; PULSE 88; TEMP 37; O2SAT 95
[2023-12-31] MEDS: Dextrose 5 % and 0.45 % NaCl 1,000 ML 100 ML IVCONT (01:35)
--- NOTE | 2023-12-31 01:36 | PC.NURSE ---
16fr vences catheter inserted. Pt tolerated procedure well, initial output is approx 350mL of clear, yellow urine.
[2023-12-31 01:45] LABS: Appearance Urine Clear; Color Urine Yellow; Glucose Urine UA Negative (Negative); Leukocyte Esterase Urine Negative (Negative); Nitrite Urine Negative (Negative); Urine Blood Negative (Negative); Urine Ketones Negative (Negative); Urine Protein Trace mg/dL (Neg-Trace)
[2023-12-31] MEDS: traZODone HCL 50 MG TABLET PO ×2 (02:04→21:45)
[2023-12-31 02:56] VITALS: BP 143/83; PULSE 86; RESP 18; TEMP 36.2; O2SAT 98
[2023-12-31] MEDS: Heparin Sodium,Porcine 5,000 UNIT/ML VIAL 5000 UNIT SUBCUT ×3 (05:25→21:45)
[2023-12-31 06:48] LABS: MANUAL DIFF FLAG NO
[2023-12-31 06:51] LABS: Basophils Percent Auto 0.4 % (0-2); Hematocrit 42.9 % (42.0-52.0); Hemoglobin 13.6 g/dl (14.0-18.0); Imm Gran Abs Auto 0.01 X10*3/uL (0.00-0.03); Imm Gran Pct Auto 0.1 % (0.0-0.4); Lymphocytes Absolute Auto 0.6 X10*3/uL (1.2-4.9); Lymphocytes Percent Auto 8.3 % (20-40); Mean Corpuscular HGB Conc 31.7 g/dl (31.0-36.0); Mean Corpuscular Hemoglobin 27.5 pg (27.0-33.0); Mean Corpuscular Volume 86.8 fL (80.0-98.0); Mean Platelet Volume 12.2 fL (9.4-12.4); Monocytes Absolute Auto 0.8 X10*3/uL (0.1-1.2); Monocytes Percent Auto 10.9 % (2-11); Neutrophils Absolute Auto 6.1 x10*3/uL (2.0-8.3); Neutrophils Percent Auto 80.3 % (45-73); Platelet Count 180 X10*3/uL (160-400); Red Blood Count 4.94 X10*6/uL (4.60-5.80); Red Cell Distribution Width 15.3 % (11.0-16.0); White Blood Count 7.6 X10*3/uL (4.8-10.8)
[2023-12-31 07:07] LABS: Alanine Aminotransferase 15 U/L (0-40); Alkaline Phosphatase 64 U/L (39-117); Anion Gap 16 (12-20); Aspartate Amino Transferase 18 U/L (5-37); Bilirubin Total 0.3 mg/dL (0.0-1.0); Blood Urea Nitrogen 37 mg/dL (9-16); Carbon Dioxide 20 mmol/L (22-29); Chloride 110 mmol/L (96-108); Creatinine Clr Calc Pharmacy 45.2; Estimated Glomerular Filt Rate 35; Glucose Random 185 mg/dL (60-115); Potassium 3.6 mmol/L (3.3-5.1); Sodium 142 mmol/L (135-145); Total Protein 7.2 g/dL (6.5-8.0)
[2023-12-31] MEDS: Lactated Ringers 1,000 ML 100 ML IVCONT ×2 (07:20→17:28)
[2023-12-31 07:22] VITALS: BP 159/84; PULSE 89; RESP 18; TEMP 36; O2SAT 97
[2023-12-31 07:36] LABS: Glucose, Whole Blood 186 mg/dL (60-115)
[2023-12-31] MEDS: Insulin Lispro 100 UNIT/ML 3 ML VIAL SUBCUT (07:55)
[2023-12-31 11:10] LABS: Glucose, Whole Blood 134 mg/dL (60-115)
--- NOTE | 2023-12-31 11:15 | MHC.CM.PN ---
pt lives on the independt side of a [facility] he usues 02 pt works at [employer] in [facility] during the day ..spoke with andrew at senior living who explinsthey do not need additional paperwork filled out by the hospital; d/c summary will surfice asked ethan y to fax jhcp /or guardianship to office
--- NOTE | 2023-12-31 11:45 | PHA.MEDREC ---
Pharmacy Consult ? Medication Reconciliation Pharmacy has completed the medication reconciliation. Spoke to patient and also Deepika at [facility] ([phone]) to confirm medication list. Clozapine dose is confirmed to be 275 mg at bedtime.
--- NOTE | 2023-12-31 12:00 | PM.EVENT ---
Event Note Date of Service: 12/31/23 Event Note: Chart reviewed patient examined. Agree with history and physical and plan as outlined Time Spent With Patient Time: Total time managing care of this patient today ____ minutes.
[2023-12-31] MEDS: ondansetron HCL 4 MG/2 ML VIAL IVPUSH (13:48)
[2023-12-31 15:09] VITALS: BP 167/90; PULSE 94; RESP 20; TEMP 36.8; O2SAT 97
[2023-12-31 16:25] LABS: Glucose, Whole Blood 190 mg/dL (60-115)
[2023-12-31] MEDS: Prochlorperazine Edisylate 10 MG/2 ML VIAL 5 MG IVPUSH (17:23)
--- NOTE | 2023-12-31 18:37 | ECG_ITS ---
Test Reason : chest pain Blood Pressure : / mmHG Vent. Rate : 098 BPM Atrial Rate : 098 BPM P-R Int : 166 ms QRS Dur : 108 ms QT Int : 372 ms P-R-T Axes : 076 028 160 degrees QTc Int : 474 ms Normal sinus rhythm ST & T wave abnormality, consider inferolateral ischemia Prolonged QT Abnormal ECG When compared with ECG of 30-DEC-2023 16:33, No significant change was found Referred By: Wilda Flor Electronically Signed By:Javier Bah
--- NOTE | 2023-12-31 18:37 | PC.NURSE ---
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 Wilda HAILE made aware. Original Note: pt complaining of chest pain stating angina . pt states it does not radiate, but it feels like crackling . MIC Byrne at bedside to assess pt. Vitals obtained. HR 99, O2 99 on room air, BP 179/103, attempted to check manually with no success. playground monitor applied.
--- NOTE | 2023-12-31 18:41 | PM.EVENT ---
Event Note Date of Service: 12/31/23 Event Note: 58 year old male with history of CAD reproting retrosternal chest pain radiating into epigastrum. States has been present since admission but has worsened. He is actively vomiting as well. He is very vague in describing his pain. States it feels like a crackling in his chest that is non radiating rates as a 4-5/10. He is reporting sob and wheezing. No diaphoresis. Vitals stable. 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 On exam, pt has vomitus on daron but is otherwise in no acute distress. Heart RRR, no murmurs, normal S1/S2. Lungs CTA bilaterally, abd softly distended/obese, NTT. EKG ordered. Check trop and CXR. Chest pain is more likely atypical related to active vomiting. Continue antiemetics. Give famotidine 20mg bid. Change diet to clear liquids. Time Spent With Patient Time: Total time managing care of this patient today ____ minutes.
[2023-12-31 19:14] LABS: Troponin-I High Sensitivity 4.5 ng/L (<3.5-35.0)
[2023-12-31] MEDS: Metoprolol Succinate ER 50 MG TAB.ER.24H PO (19:35)
[2023-12-31 19:40] VITALS: BP 175/92; PULSE 96; RESP 18; TEMP 36.8; O2SAT 96
[2023-12-31 20:28] LABS: Glucose, Whole Blood 190 mg/dL (60-115)
[2023-12-31] MEDS: Atorvastatin Calcium 20 MG TABLET PO (21:43)
[2023-12-31] MEDS: cloZAPine 25 MG TABLET 75 MG PO (21:44)
[2023-12-31] MEDS: cloZAPine 100 MG TABLET 200 MG PO (21:44)
[2023-12-31] MEDS: Famotidine 20 MG TABLET PO (21:44)
[2023-12-31] MEDS: 0.9 % Sodium Chloride Flush 3 ML SYRINGE IVFLUSH (21:46)
--- NOTE | 2023-12-31 23:19 | PC.RT ---
pt not placed on cpap actively vomiting no machine in room
[2024-01-01 03:14] VITALS: BP 139/74; PULSE 76; RESP 18; TEMP 36.9; O2SAT 98
[2024-01-01] MEDS: ondansetron HCL 4 MG/2 ML VIAL IVPUSH (05:16)
[2024-01-01] MEDS: Heparin Sodium,Porcine 5,000 UNIT/ML VIAL 5000 UNIT SUBCUT ×3 (05:17→21:27)
[2024-01-01] MEDS: Lactated Ringers 1,000 ML 100 ML IVCONT ×2 (05:23→14:20)
--- NOTE | 2024-01-01 05:58 | PM.EVENT ---
Event Note Date of Service: 01/01/24 Event Note: Nurse reported vomiting. Patient with distended abdomen. Obtained KUB with distended small bowel loops concerning for SBO. Inserted NG tube with intermittent suction. 1300 cc output obtained in [address] of the abdomen/pelvis and consulting general surgery. Keep patient NPO Time Spent With Patient Time: Total time managing care of this patient today ____ minutes.
[2024-01-01 06:12] LABS: MANUAL DIFF FLAG NO
[2024-01-01 06:36] LABS: Alanine Aminotransferase 12 U/L (0-40); Alkaline Phosphatase 61 U/L (39-117); Anion Gap 14 (12-20); Aspartate Amino Transferase 13 U/L (5-37); Bilirubin Total 0.3 mg/dL (0.0-1.0); Blood Urea Nitrogen 54 mg/dL (9-16); Calcium 9.4 mg/dL (8.4-10.2); Carbon Dioxide 22 mmol/L (22-29); Chloride 113 mmol/L (96-108); Creatinine Clr Calc Pharmacy 46.3; Estimated Glomerular Filt Rate 36; Glucose Fasting 182 mg/dL (60-99); Potassium 3.9 mmol/L (3.3-5.1); Sodium 145 mmol/L (135-145); Total Protein 7.3 g/dL (6.5-8.0)
[2024-01-01] MEDS: Lactated Ringers 1,000 ML 999 ML IV (06:38)
[2024-01-01] MEDS: Piperacillin Sodium/Tazobactam 4.5 GM in 0.9 % Sodium Chloride 100 ML IV ×3 (06:45→19:53)
[2024-01-01 06:54] LABS: Hematocrit 44.8 % (42.0-52.0); Hemoglobin 14.1 g/dl (14.0-18.0); Imm Gran Abs Auto 0.02 X10*3/uL (0.00-0.03); Imm Gran Pct Auto 0.3 % (0.0-0.4); Lymphocytes Absolute Auto 0.4 X10*3/uL (1.2-4.9); Lymphocytes Percent Auto 6.1 % (20-40); Mean Corpuscular HGB Conc 31.5 g/dl (31.0-36.0); Mean Corpuscular Volume 85.8 fL (80.0-98.0); Mean Platelet Volume 12.6 fL (9.4-12.4); Monocytes Absolute Auto 1.1 X10*3/uL (0.1-1.2); Monocytes Percent Auto 16.1 % (2-11); Neutrophils Absolute Auto 5.5 x10*3/uL (2.0-8.3); Neutrophils Percent Auto 77.5 % (45-73); Platelet Count 186 X10*3/uL (160-400); Red Blood Count 5.22 X10*6/uL (4.60-5.80); Red Cell Distribution Width 15.1 % (11.0-16.0); White Blood Count 7.1 X10*3/uL (4.8-10.8)
--- NOTE | 2024-01-01 07:08 | PC.NURSE ---
315 am pt vomit huge . dr Ray notified order for ng tube placement and stat ct of abdomen ng tube dained first 1200 ml brown liquid. pt was brought to radiology . npo diet . later bolus of fluid ordered and abx , also zofran for nausea. report given to day RN
[2024-01-01 07:38] VITALS: BP 156/83; PULSE 86; RESP 18; TEMP 36.3; O2SAT 97
[2024-01-01 07:55] LABS: Glucose, Whole Blood 146 mg/dL (60-115)
[2024-01-01 08:43] LABS: Troponin-I High Sensitivity 6.5 ng/L (<3.5-35.0)
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
[2024-01-01] MEDS: Pantoprazole Sodium 40 MG/10 ML VIAL IVPUSH ×2 (10:16→17:15)
--- NOTE | 2024-01-01 10:19 | MHC.CM.PN ---
EMR REVIEWED, PT W/SBO, PER HOSPITALIST LIKELY D/T CLOZARIL AND WILL HOLD W/PLAN TO RESTART, NG TUBE IN PLACE, NO PLAN FOR DC AT THIS TIME, CM WILL CONT TO FOLLOW DC NEEDS.
[2024-01-01 10:49] LABS: Lactic Acid 1.8 mmol/L (0.5-2.0)
[2024-01-01 11:38] LABS: Glucose, Whole Blood 131 mg/dL (60-115)
--- NOTE | 2024-01-01 14:37 | HO.PM.IMPN ---
Subjective Subjective Date of Service: 01/01/24 Interval History: Developed significant abdominal pain overnight. CT of abdomen demonstrated question small-bowel obstruction. NG-tube placed; minimal drainage at this point. Seen this a.m. by surgery. . . No indication for intervention at this time. Patient did complain of chest pain overnight EKG and troponin x2 negative Review of Systems Admits to chest pain/midepigastric pain Denies shortness of breath Admits to nausea; no vomiting no diarrhea Physical Exam Vital Signs: Vital Signs: Last Vital Signs Temp 97.3 F 01/01/24 07:38 Pulse 86 01/01/24 07:38 Resp 18 01/01/24 07:38 BP 156/83 H 01/01/24 07:38 Pulse Ox 97 01/01/24 07:38 O2 Del Method Nasal Cannula 01/01/24 07:38 O2 Flow Rate 2 01/01/24 07:38 BMI result Body Mass Index 37.1 Const: Other: Awake alert comfortable appearing. States tolerating NG-tube HEENT: Other: NG tube in place Resp: Other: Clear to auscultation bilaterally no rales rhonchi or wheezes Cardio: Other: No S4; positive S1-S2; no S3 murmurs rubs or gallops GI: Other: Distended and soft. Nontender/without peritoneal signs. Quiet bowel sounds Extrem: Other: No edema bilaterally Objective Data Active Medications Acetaminophen (Acetaminophen 325 Mg Tablet) 650 mg PO Q6H PRN PRN Reason: Pain, Mild (Pain Scale 1-3) Albuterol Sulfate (Albuterol Sulfate 90 Mcg 8 Gm Inhaler) 2 puff INHALE Q6H PRN PRN Reason: Shortness Of Breath Or Wheezing Aspirin (Aspirin Enteric Coated 81 Mg Tablet.Dr) 81 mg PO DAILY@0800 [facility] Last Admin: 01/01/24 08:02 Dose: Not Given Documented By: MARCO A Non-Admin Reason: NPO Atorvastatin Calcium (Atorvastatin Calcium 20 Mg Tablet) 20 mg PO DAILY@1999 [facility] Last Admin: 12/31/23 21:43 Dose: 20 mg Documented By: HUYEN Comments: pt was vomiting Clozapine (Clozapine 100 Mg Tablet) 200 mg PO DAILY@1999 [facility] Last Admin: 12/31/23 21:44 Dose: 200 mg Documented By: HUYEN Clozapine (Clozapine 25 Mg Tablet) 75 mg PO DAILY@1999 [facility] Last Admin: 12/31/23 21:44 Dose: 75 mg Documented By: HUYEN Dextrose (Dextrose 50 % 25 Gm/50 Ml Syringe) 25 gm IVPUSH Q15M PRN; Protocol PRN Reason: per Hypoglycemia Standing Ord. Glucose (Glucose Gel 15 Gm Gel..Gram.) 15 gm PO Q15M PRN; Protocol PRN Reason: per Hypoglycemia Standing Ord. Heparin Sodium (Porcine) (Heparin Sodium,Porcine 5,000 Unit/Ml Vial) 5,000 unit SUBCUT Q8H [facility] Last Admin: 01/01/24 14:20 Dose: 5,000 unit Documented By: MARCO A Lactated Ringer's (Lr) 1,000 mls @ 100 mls/hr IVCONT .Q10H [facility] Last Admin: 01/01/24 14:20 Dose: 100 mls/hr Documented By: MARCO A Piperacillin Sod/Tazobactam (Sod 4.5 gm/ Sodium Chloride) 100 mls @ 200 mls/hr IV Q6H [facility] Last Admin: 01/01/24 14:20 Dose: 200 mls/hr Documented By: MARCO A Insulin Human Lispro (Insulin Lispro 100 Unit/Ml 3 Ml Vial) 0 unit SUBCUT QIDACHS [facility]; Protocol Last Admin: 01/01/24 11:39 Dose: Not Given Documented By: MARCO A Non-Admin Reason: No Insulin Coverage Lorazepam (Lorazepam 2 Mg/Ml Vial) 1 mg IVPUSH BID@0800,1600 [facility] Lurasidone HCl (Lurasidone Hcl 20 Mg Tablet) 60 mg PO DAILY@08 [facility] Last Admin: 01/01/24 08:02 Dose: Not Given Documented By: MARCO A Non-Admin Reason: NPO Metoprolol Succinate (Metoprolol Succinate Er 50 Mg Tab.Er.24h) 50 mg PO BID@799,1999 [facility]; Protocol Last Admin: 01/01/24 08:02 Dose: Not Given Documented By: MARCO A Non-Admin Reason: NPO Morphine Sulfate (Morphine Sulfate 4 Mg/Ml Cartridge) 4 mg IVPUSH Q4H PRN; Protocol PRN Reason: Pain, Moderate(Pain Scale 4-6) Ondansetron HCl (Ondansetron Hcl 4 Mg/2 Ml Vial) 4 mg IVPUSH Q4H PRN PRN Reason: Nausea and Vomiting Last Admin: 01/01/24 05:16 Dose: 4 mg Documented By: HUYEN Pantoprazole Sodium (Pantoprazole Sodium 40 Mg/10 Ml Vial) 40 mg IVPUSH BID@0630,1630 [facility] Last Admin: 01/01/24 10:16 Dose: 40 mg Documented By: MARCO A Prochlorperazine Edisylate (Prochlorperazine Edisylate 10 Mg/2 Ml Vial) 5 mg IVPUSH Q4H PRN PRN Reason: Nausea and Vomiting Last Admin: 12/31/23 17:23 Dose: 5 mg Documented By: MARCO A Sodium Chloride (0.9 % Sodium Chloride Flush 3 Ml Syringe) 3 ml IVFLUSH QSHIFT [facility] Last Admin: 01/01/24 07:30 Dose: Not Given Documented By: MARCO A Non-Admin Reason: IV Running Trazodone HCl (Trazodone Hcl 50 Mg Tablet) 50 mg PO DAILY@2000 [facility] Last Admin: 12/31/23 21:45 Dose: 50 mg Documented By: HUYEN Vitamin D (Cholecalciferol (Vitamin D3) 25 Mcg Tablet) 25 mcg PO DAILY@0800 [facility] Last Admin: 01/01/24 08:02 Dose: Not Given Documented By: MARCO A Non-Admin Reason: NPO Labs 01/01/24 05:41 01/01/24 05:41 Labs: Laboratory Results - last 24 hr 12/31/23 12/31/23 12/31/23 16:10 18:47 20:22 MCV MCH MCHC RDW Plt Count MPV Immature Gran % (Auto) Neut % (Auto) Lymph % (Auto) [place] % (Auto) Eos % (Auto) Baso % (Auto) Lymph # (Auto) [place] # (Auto) Eos # (Auto) Baso # (Auto) Abs Immat Gran (auto) Absolute Neuts (auto) Absolute Nucleated RBC Nucleated RBC % (auto) Hold Purple Top Anion Gap Estim Creat Clear Calc Estimated GFR POC Glucose 190 H 190 H Fasting Glucose Lactic Acid Calcium Total Bilirubin AST ALT Alkaline Phosphatase Troponin I High Sens 4.5 D Total Protein Albumin 01/01/24 01/01/24 01/01/24 05:41 07:25 07:37 MCV 85.8 MCH 27.0 MCHC 31.5 RDW 15.1 Plt Count 186 MPV 12.6 H Immature Gran % (Auto) 0.3 Neut % (Auto) 77.5 H Lymph % (Auto) 6.1 L [place] % (Auto) 16.1 H Eos % (Auto) 0.0 Baso % (Auto) 0.0 Lymph # (Auto) 0.4 L [place] # (Auto) 1.1 Eos # (Auto) 0.0 Baso # (Auto) 0.0 Abs Immat Gran (auto) 0.02 Absolute Neuts (auto) 5.5 Absolute Nucleated RBC 0.000 Nucleated RBC % (auto) 0.0 Hold Purple Top SEE NOTE Anion Gap 14 Estim Creat Clear Calc 46.3 Estimated GFR 36 POC Glucose 146 H Fasting Glucose 182 H Lactic Acid 1.8 Calcium 9.4 Total Bilirubin 0.3 AST 13 ALT 12 Alkaline Phosphatase 61 Troponin I High Sens Total Protein 7.3 Albumin 4.0 01/01/24 01/01/24 07:58 11:31 MCV MCH MCHC RDW Plt Count MPV Immature Gran % (Auto) Neut % (Auto) Lymph % (Auto) [place] % (Auto) Eos % (Auto) Baso % (Auto) Lymph # (Auto) [place] # (Auto) Eos # (Auto) Baso # (Auto) Abs Immat Gran (auto) Absolute Neuts (auto) Absolute Nucleated RBC Nucleated RBC % (auto) Hold Purple Top Anion Gap Estim Creat Clear Calc Estimated GFR POC Glucose 131 H Fasting Glucose Lactic Acid Calcium Total Bilirubin AST ALT Alkaline Phosphatase Troponin I High Sens 6.5 Total Protein Albumin Assessment and Plan (1) SBO (small bowel obstruction): Status: Acute Plan 58-year-old male resident [facility] local [facility] presents with intractable nausea and vomiting; JUHI upon arrival. Over the last 24 hours developed worsening abdominal pain; CT scan abdomen and pelvis consistent with likely SBO question secondary to adhesions/Clozaril or combination of two. Seen by surgery; no acute intervention at this time. This afternoon, and G-tube with minimal drainage and patient is noting improvement overall 1. Small bowel obstruction Stable at this time and tolerant of NG tube drainage. Did complain of some chest pain however EKG enzymes x2 negative -continue NG tube to suction -repeat KUB in a.m. -Clozaril held; can be restarted when abdominal process resolved. Question decreasing dose at that time -surgery following 2. JUHI Slowly responding to volume repletion; response likely blunted secondary to GI output -continue aggressive volume repletion -follow renals/divalents 3.HTN Control not optimal secondary to inability to utilize orals. ARB held secondary to JUHI -will utilize labetalol p.r.n. -resume oral therapies once renal function has normalized an SBO has resolved 4. Diabetes type 2 -acceptable control at this time given NPO status -lispro correctional scale -adjust as indicated 5. Schizoaffective disorder Clozaril known to cause paralytic ileus/intestinal ischemia at worst. Ativan switch to IV. Would strongly consider decreasing Clozaril dose when taking oral as patient has had these GI issues -IV lorazepam scheduled -treat behaviors as clinically indicated at this time -resume Clozaril when appropriate Patient requires ongoing hospitalization for NG tube decompression in backdrop of partial small-bowel obstruction. Also requires IV fluids and support of NPO status Quality Stroke Does the patient have a stroke diagnosis?: No VTE Prior VTE?: No VTE Risk Level:: Medical - moderate - high VTE Device Contraindication: Treatment Not Indicated VTE Drug Contraindication: N/A - Med Ordered
[2024-01-01 14:55] LABS: Glucose, Whole Blood 154 mg/dL (60-115)
[2024-01-01 14:58] VITALS: BP 143/84; PULSE 93; RESP 17; TEMP 36.2; O2SAT 96
[2024-01-01] MEDS: Morphine Sulfate 4 MG/ML CARTRIDGE IVPUSH (15:34)
[2024-01-01 16:14] LABS: Glucose, Whole Blood 144 mg/dL (60-115)
[2024-01-01] MEDS: LORazepam 2 MG/ML VIAL 1 MG IVPUSH (17:51)
[2024-01-01] MEDS: 0.9 % Sodium Chloride Flush 3 ML SYRINGE IVFLUSH (19:53)
[2024-01-01 19:57] VITALS: BP 152/87; PULSE 87; RESP 20; TEMP 35.8; O2SAT 98
[2024-01-01 20:15] LABS: Glucose, Whole Blood 114 mg/dL (60-115)
[2024-01-02] MEDS: Lactated Ringers 1,000 ML 100 ML IVCONT (01:24)
[2024-01-02] MEDS: Piperacillin Sodium/Tazobactam 4.5 GM in 0.9 % Sodium Chloride 100 ML IV ×4 (01:46→20:21)
[2024-01-02 03:16] VITALS: BP 126/60; PULSE 85; RESP 20; TEMP 36.1; O2SAT 97
[2024-01-02] MEDS: Pantoprazole Sodium 40 MG/10 ML VIAL IVPUSH ×2 (06:02→15:59)
[2024-01-02] MEDS: Heparin Sodium,Porcine 5,000 UNIT/ML VIAL 5000 UNIT SUBCUT ×3 (06:02→22:20)
[2024-01-02 07:23] LABS: Glucose, Whole Blood 114 mg/dL (60-115)
[2024-01-02 07:36] LABS: MANUAL DIFF FLAG NO
[2024-01-02 07:38] LABS: Alanine Aminotransferase 13 U/L (0-40); Albumin Level 3.5 g/dL (3.5-5.0); Alkaline Phosphatase 50 U/L (39-117); Anion Gap 10 (12-20); Aspartate Amino Transferase 13 U/L (5-37); Bilirubin Total 0.3 mg/dL (0.0-1.0); Blood Urea Nitrogen 48 mg/dL (9-16); Calcium 8.6 mg/dL (8.4-10.2); Carbon Dioxide 28 mmol/L (22-29); Chloride 116 mmol/L (96-108); Creatinine Clr Calc Pharmacy 47.8; Estimated Glomerular Filt Rate 37; Glucose Fasting 121 mg/dL (60-99); Potassium 3.9 mmol/L (3.3-5.1); Sodium 150 mmol/L (135-145)
[2024-01-02 07:43] VITALS: BP 135/78; PULSE 88; RESP 20; TEMP 36.3; O2SAT 96
[2024-01-02 07:43] LABS: Basophils Percent Auto 0.4 % (0-2); Hematocrit 38.5 % (42.0-52.0); Hemoglobin 12.2 g/dl (14.0-18.0); Imm Gran Abs Auto 0.01 X10*3/uL (0.00-0.03); Imm Gran Pct Auto 0.2 % (0.0-0.4); Lymphocytes Absolute Auto 0.6 X10*3/uL (1.2-4.9); Lymphocytes Percent Auto 12.7 % (20-40); Mean Corpuscular HGB Conc 31.7 g/dl (31.0-36.0); Mean Corpuscular Hemoglobin 27.4 pg (27.0-33.0); Mean Corpuscular Volume 86.5 fL (80.0-98.0); Mean Platelet Volume 12.2 fL (9.4-12.4); Monocytes Absolute Auto 0.7 X10*3/uL (0.1-1.2); Monocytes Percent Auto 14.6 % (2-11); Neutrophils Absolute Auto 3.4 x10*3/uL (2.0-8.3); Neutrophils Percent Auto 72.1 % (45-73); Platelet Count 144 X10*3/uL (160-400); Red Blood Count 4.45 X10*6/uL (4.60-5.80); Red Cell Distribution Width 15.1 % (11.0-16.0); White Blood Count 4.7 X10*3/uL (4.8-10.8)
[2024-01-02] MEDS: LORazepam 2 MG/ML VIAL 1 MG IVPUSH ×3 (07:59→22:19)
[2024-01-02] MEDS: 0.9 % Sodium Chloride Flush 3 ML SYRINGE IVFLUSH ×2 (08:52→15:58)
[2024-01-02] MEDS: Dextrose 5 % 1,000 ML 125 ML IVCONT ×2 (08:52→16:57)
--- NOTE | 2024-01-02 09:04 | P.PNGS_ITS ---
Subjective Subjective Date of Service: 01/02/24 Interval history: Feels improved this morning. Denies any abdominal pain, feels less bloated. Passing flatus and reports BM this morning. Reports he was OOB and ambulated yesterday. Physical Exam 2 Vital Signs: Vital Signs: Last Vital Signs Temp 97.4 F 01/02/24 07:43 Pulse 88 01/02/24 07:43 Resp 20 01/02/24 07:43 BP 135/78 01/02/24 07:43 Pulse Ox 96 01/02/24 07:43 O2 Del Method Nasal Cannula 01/02/24 07:43 O2 Flow Rate 2.0 01/02/24 07:43 BMI result Body Mass Index 37.1 Const: General: comfortable, no acute distress and alert O rientation/consciousness: patient oriented x3 Resp: Effort & Inspection: normal respiratory effort GI: Inspection: Yes distended (softly) Palpation (GI): Soft to palpation, nontender, no guarding and not rigid Percussion: Yes tympanic to percussion Skin: General skin exam: no rashes or lesions noted Neuro: General: patient oriented x3 Objective Data Active Medications Acetaminophen (Acetaminophen 325 Mg Tablet) 650 mg PO Q6H PRN PRN Reason: Pain, Mild (Pain Scale 1-3) Albuterol Sulfate (Albuterol Sulfate 90 Mcg 8 Gm Inhaler) 2 puff INHALE Q6H PRN PRN Reason: Shortness Of Breath Or Wheezing Aspirin (Aspirin Enteric Coated 81 Mg Tablet.) 81 mg PO DAILY@0800 [facility] Last Admin: 01/01/24 08:02 Dose: Not Given Documented By: MARCO A Non-Admin Reason: NPO Atorvastatin Calcium (Atorvastatin Calcium 20 Mg Tablet) 20 mg PO DAILY@1999 [facility] Last Admin: 12/31/23 21:43 Dose: 20 mg Documented By: HUYEN Comments: pt was vomiting Clozapine (Clozapine 100 Mg Tablet) 200 mg PO DAILY@1999 [facility] Last Admin: 12/31/23 21:44 Dose: 200 mg Documented By: HUYEN Clozapine (Clozapine 25 Mg Tablet) 75 mg PO DAILY@1999 [facility] Last Admin: 12/31/23 21:44 Dose: 75 mg Documented By: HUYEN Dextrose (Dextrose 50 % 25 Gm/50 Ml Syringe) 25 gm IVPUSH Q15M PRN; Protocol PRN Reason: per Hypoglycemia Standing Ord. Glucose (Glucose Gel 15 Gm Gel..Gram.) 15 gm PO Q15M PRN; Protocol PRN Reason: per Hypoglycemia Standing Ord. Heparin Sodium (Porcine) (Heparin Sodium,Porcine 5,000 Unit/Ml Vial) 5,000 unit SUBCUT Q8H [facility] Last Admin: 01/02/24 06:02 Dose: 5,000 unit Documented By: FREEMAN Piperacillin Sod/Tazobactam (Sod 4.5 gm/ Sodium Chloride) 100 mls @ 200 mls/hr IV Q6H [facility] Last Infusion: 01/02/24 08:52 Dose: Infused Documented By: ASTON Dextrose (D5w) 1,000 mls @ 125 mls/hr IVCONT .Q8H [facility] Last Admin: 01/02/24 08:52 Dose: 125 mls/hr Documented By: ASTON Insulin Human Lispro (Insulin Lispro 100 Unit/Ml 3 Ml Vial) 0 unit SUBCUT QIDACHS [facility]; Protocol Last Admin: 01/02/24 08:23 Dose: Not Given Documented By: ASTON Non-Admin Reason: No Insulin Coverage Lorazepam (Lorazepam 2 Mg/Ml Vial) 1 mg IVPUSH BID@0800,1600 [facility] Last Admin: 01/02/24 07:59 Dose: 1 mg Documented By: RENU Lurasidone HCl (Lurasidone Hcl 20 Mg Tablet) 60 mg PO DAILY@0800 [facility] Last Admin: 01/01/24 08:02 Dose: Not Given Documented By: MARCO A Non-Admin Reason: NPO Metoprolol Succinate (Metoprolol Succinate Er 50 Mg Tab.Er.24h) 50 mg PO BID@0800,2000 [facility]; Protocol Last Admin: 01/01/24 08:02 Dose: Not Given Documented By: MARCO A Non-Admin Reason: NPO Morphine Sulfate (Morphine Sulfate 4 Mg/Ml Cartridge) 4 mg IVPUSH Q4H PRN; Protocol PRN Reason: Pain, Moderate(Pain Scale 4-6) Last Admin: 01/01/24 15:34 Dose: 4 mg Documented By: MARCO A Ondansetron HCl (Ondansetron Hcl 4 Mg/2 Ml Vial) 4 mg IVPUSH Q4H PRN PRN Reason: Nausea and Vomiting Last Admin: 01/01/24 05:16 Dose: 4 mg Documented By: HUYEN Pantoprazole Sodium (Pantoprazole Sodium 40 Mg/10 Ml Vial) 40 mg IVPUSH BID@0630,1630 [facility] Last Admin: 01/02/24 06:02 Dose: 40 mg Documented By: FREEMAN Prochlorperazine Edisylate (Prochlorperazine Edisylate 10 Mg/2 Ml Vial) 5 mg IVPUSH Q4H PRN PRN Reason: Nausea and Vomiting Last Admin: 12/31/23 17:23 Dose: 5 mg Documented By: MARCO A Sodium Chloride (0.9 % Sodium Chloride Flush 3 Ml Syringe) 3 ml IVFLUSH QSHIFT [facility] Last Admin: 01/02/24 08:52 Dose: 3 ml Documented By: ASTON Trazodone HCl (Trazodone Hcl 50 Mg Tablet) 50 mg PO DAILY@2000 [facility] Last Admin: 12/31/23 21:45 Dose: 50 mg Documented By: HUYEN Vitamin D (Cholecalciferol (Vitamin D3) 25 Mcg Tablet) 25 mcg PO DAILY@0800 [facility] Last Admin: 01/01/24 08:02 Dose: Not Given Documented By: MARCO A Non-Admin Reason: NPO Labs 01/02/24 07:23 01/02/24 06:00 Labs: Laboratory Results - last 24 hr 01/01/24 01/01/24 01/01/24 07:25 11:31 14:50 MCV MCH MCHC RDW Plt Count MPV Immature Gran % (Auto) Neut % (Auto) Lymph % (Auto) [place] % (Auto) Eos % (Auto) Baso % (Auto) Lymph # (Auto) [place] # (Auto) Eos # (Auto) Baso # (Auto) Abs Immat Gran (auto) Absolute Neuts (auto) Absolute Nucleated RBC Nucleated RBC % (auto) Anion Gap Estim Creat Clear Calc Estimated GFR POC Glucose 131 H 154 H Fasting Glucose Lactic Acid 1.8 Calcium Total Bilirubin AST ALT Alkaline Phosphatase Total Protein Albumin 01/01/24 01/01/24 01/02/24 16:02 20:06 06:00 MCV MCH MCHC RDW Plt Count MPV Immature Gran % (Auto) Neut % (Auto) Lymph % (Auto) [place] % (Auto) Eos % (Auto) Baso % (Auto) Lymph # (Auto) [place] # (Auto) Eos # (Auto) Baso # (Auto) Abs Immat Gran (auto) Absolute Neuts (auto) Absolute Nucleated RBC Nucleated RBC % (auto) Anion Gap 10 L Estim Creat Clear Calc 47.8 Estimated GFR 37 POC Glucose 144 H 114 Fasting Glucose 121 H Lactic Acid Calcium 8.6 D Total Bilirubin 0.3 AST 13 ALT 13 Alkaline Phosphatase 50 Total Protein 6.0 L Albumin 3.5 01/02/24 01/02/24 07:18 07:23 MCV 86.5 MCH 27.4 MCHC 31.7 RDW 15.1 Plt Count 144 L MPV 12.2 Immature Gran % (Auto) 0.2 Neut % (Auto) 72.1 Lymph % (Auto) 12.7 L [place] % (Auto) 14.6 H Eos % (Auto) 0.0 Baso % (Auto) 0.4 Lymph # (Auto) 0.6 L [place] # (Auto) 0.7 Eos # (Auto) 0.0 Baso # (Auto) 0.0 Abs Immat Gran (auto) 0.01 Absolute Neuts (auto) 3.4 Absolute Nucleated RBC 0.000 Nucleated RBC % (auto) 0.0 Anion Gap Estim Creat Clear Calc Estimated GFR POC Glucose 114 Fasting Glucose Lactic Acid Calcium Total Bilirubin AST ALT Alkaline Phosphatase Total Protein Albumin Procedures Date of Service Date of Service: 01/02/24 Progress Note: A&P Assessment and plan (1) SBO (small bowel obstruction): Status: Acute Plan Patient remains stable. NGT output low overnight. Now with return of GI function. He does remain slightly distended but softly and nontender. Will therefore clamp NGT for 4 hrs, check residual. Unclamp sooner if develops worsening abd pain, distention, nausea/vomiting. Can remove if output <100cc. Patient comfortable with plan. Again encouraged OOB/ambulation. Time Spent With Patient Time: Total time managing care of this patient today ____ minutes. Quality Stroke Does the patient have a stroke diagnosis?: No VTE Prior VTE?: No VTE Risk Level:: Medical - moderate - high VTE Device Contraindication: Treatment Not Indicated VTE Drug Contraindication: N/A - Med Ordered
--- NOTE | 2024-01-02 10:16 | MHC.CM.PN ---
EMR REVIEWED. PER MD ROUNDS PATIENT NOT MEDICALLY CLEARD FOR DC AT THIS TIME, PLAN TO ADVANCE DIET TODAY. CM WILL CONTINUE TO FOLLOW FOR DC NEEDS.
[2024-01-02 11:25] LABS: Glucose, Whole Blood 120 mg/dL (60-115)
--- NOTE | 2024-01-02 11:31 | P.PNIM_ITS ---
Subjective Subjective Date of Service: 01/02/24 Interval History: passing gas + liquid stool; denies abd pain NGT clamped Review of Systems Review of Systems: Yes all other systems are reviewed and are negative Physical Exam 2 Vital Signs: Vital Signs: Last Vital Signs Temp 97.4 F 01/02/24 07:43 Pulse 88 01/02/24 07:43 Resp 20 01/02/24 07:43 BP 135/78 01/02/24 07:43 Pulse Ox 96 01/02/24 07:43 O2 Del Method Nasal Cannula 01/02/24 07:43 O2 Flow Rate 2.0 01/02/24 07:43 BMI result Body Mass Index 37.1 Gen: in no acute distress HEENT: sclera anicteric, moist mucus membranes Neck: supple Lungs: clear to auscultation bilaterally Heart: regular rate and rhythm, no murmurs Abd: distended but not tender, bowel sounds present, NGT clamped Ext: no edema Skin: warm/well-perfused Neuro: alert and oriented x3, no focal findings Psych: appropriate affect Objective Data Active Medications Acetaminophen (Acetaminophen 325 Mg Tablet) 650 mg PO Q6H PRN PRN Reason: Pain, Mild (Pain Scale 1-3) Albuterol Sulfate (Albuterol Sulfate 90 Mcg 8 Gm Inhaler) 2 puff INHALE Q6H PRN PRN Reason: Shortness Of Breath Or Wheezing Aspirin (Aspirin Enteric Coated 81 Mg Tablet.Dr) 81 mg PO DAILY@0800 [facility] Last Admin: 01/01/24 08:02 Dose: Not Given Documented By: MARCO A Non-Admin Reason: NPO Atorvastatin Calcium (Atorvastatin Calcium 20 Mg Tablet) 20 mg PO DAILY@1999 [facility] Last Admin: 12/31/23 21:43 Dose: 20 mg Documented By: HUYEN Comments: pt was vomiting Clozapine (Clozapine 100 Mg Tablet) 200 mg PO DAILY@1999 [facility] Last Admin: 12/31/23 21:44 Dose: 200 mg Documented By: HUYEN Clozapine (Clozapine 25 Mg Tablet) 75 mg PO DAILY@1999 [facility] Last Admin: 12/31/23 21:44 Dose: 75 mg Documented By: HUYEN Dextrose (Dextrose 50 % 25 Gm/50 Ml Syringe) 25 gm IVPUSH Q15M PRN; Protocol PRN Reason: per Hypoglycemia Standing Ord. Glucose (Glucose Gel 15 Gm Gel..Gram.) 15 gm PO Q15M PRN; Protocol PRN Reason: per Hypoglycemia Standing Ord. Heparin Sodium (Porcine) (Heparin Sodium,Porcine 5,000 Unit/Ml Vial) 5,000 unit SUBCUT Q8H [facility] Last Admin: 01/02/24 06:02 Dose: 5,000 unit Documented By: FREEMAN Piperacillin Sod/Tazobactam (Sod 4.5 gm/ Sodium Chloride) 100 mls @ 200 mls/hr IV Q6H [facility] Last Infusion: 01/02/24 08:52 Dose: Infused Documented By: ASTON Dextrose (D5w) 1,000 mls @ 125 mls/hr IVCONT .Q8H [facility] Last Admin: 01/02/24 08:52 Dose: 125 mls/hr Documented By: ASTON Insulin Human Lispro (Insulin Lispro 100 Unit/Ml 3 Ml Vial) 0 unit SUBCUT QIDACHS [facility]; Protocol Last Admin: 01/02/24 08:23 Dose: Not Given Documented By: ASTON Non-Admin Reason: No Insulin Coverage Lorazepam (Lorazepam 2 Mg/Ml Vial) 1 mg IVPUSH BID@0800,1600 [facility] Last Admin: 01/02/24 07:59 Dose: 1 mg Documented By: RENU Lurasidone HCl (Lurasidone Hcl 20 Mg Tablet) 60 mg PO DAILY@0800 [facility] Last Admin: 01/01/24 08:02 Dose: Not Given Documented By: MARCO A Non-Admin Reason: NPO Metoprolol Succinate (Metoprolol Succinate Er 50 Mg Tab.Er.24h) 50 mg PO BID@0800,2000 [facility]; Protocol Last Admin: 01/01/24 08:02 Dose: Not Given Documented By: MARCO A Non-Admin Reason: NPO Morphine Sulfate (Morphine Sulfate 4 Mg/Ml Cartridge) 4 mg IVPUSH Q4H PRN; Protocol PRN Reason: Pain, Moderate(Pain Scale 4-6) Last Admin: 01/01/24 15:34 Dose: 4 mg Documented By: MARCO A Ondansetron HCl (Ondansetron Hcl 4 Mg/2 Ml Vial) 4 mg IVPUSH Q4H PRN PRN Reason: Nausea and Vomiting Last Admin: 01/01/24 05:16 Dose: 4 mg Documented By: HUYEN Pantoprazole Sodium (Pantoprazole Sodium 40 Mg/10 Ml Vial) 40 mg IVPUSH BID@0630,1630 [facility] Last Admin: 01/02/24 06:02 Dose: 40 mg Documented By: FREEMAN Prochlorperazine Edisylate (Prochlorperazine Edisylate 10 Mg/2 Ml Vial) 5 mg IVPUSH Q4H PRN PRN Reason: Nausea and Vomiting Last Admin: 12/31/23 17:23 Dose: 5 mg Documented By: MARCO A Sodium Chloride (0.9 % Sodium Chloride Flush 3 Ml Syringe) 3 ml IVFLUSH QSHIFT [facility] Last Admin: 01/02/24 08:52 Dose: 3 ml Documented By: ASTON Trazodone HCl (Trazodone Hcl 50 Mg Tablet) 50 mg PO DAILY@2000 [facility] Last Admin: 12/31/23 21:45 Dose: 50 mg Documented By: HUYEN Vitamin D (Cholecalciferol (Vitamin D3) 25 Mcg Tablet) 25 mcg PO DAILY@0800 [facility] Last Admin: 01/01/24 08:02 Dose: Not Given Documented By: MARCO A Non-Admin Reason: NPO Labs 01/02/24 07:23 01/02/24 06:00 Labs: Laboratory Results - last 24 hr 01/01/24 01/01/24 01/01/24 11:31 14:50 16:02 MCV MCH MCHC RDW Plt Count MPV Immature Gran % (Auto) Neut % (Auto) Lymph % (Auto) [place] % (Auto) Eos % (Auto) Baso % (Auto) Lymph # (Auto) [place] # (Auto) Eos # (Auto) Baso # (Auto) Abs Immat Gran (auto) Absolute Neuts (auto) Absolute Nucleated RBC Nucleated RBC % (auto) Anion Gap Estim Creat Clear Calc Estimated GFR POC Glucose 131 H 154 H 144 H Fasting Glucose Calcium Total Bilirubin AST ALT Alkaline Phosphatase Total Protein Albumin 01/01/24 01/02/24 01/02/24 20:06 06:00 07:18 MCV MCH MCHC RDW Plt Count MPV Immature Gran % (Auto) Neut % (Auto) Lymph % (Auto) [place] % (Auto) Eos % (Auto) Baso % (Auto) Lymph # (Auto) [place] # (Auto) Eos # (Auto) Baso # (Auto) Abs Immat Gran (auto) Absolute Neuts (auto) Absolute Nucleated RBC Nucleated RBC % (auto) Anion Gap 10 L Estim Creat Clear Calc 47.8 Estimated GFR 37 POC Glucose 114 114 Fasting Glucose 121 H Calcium 8.6 D Total Bilirubin 0.3 AST 13 ALT 13 Alkaline Phosphatase 50 Total Protein 6.0 L Albumin 3.5 01/02/24 01/02/24 07:23 11:19 MCV 86.5 MCH 27.4 MCHC 31.7 RDW 15.1 Plt Count 144 L MPV 12.2 Immature Gran % (Auto) 0.2 Neut % (Auto) 72.1 Lymph % (Auto) 12.7 L [place] % (Auto) 14.6 H Eos % (Auto) 0.0 Baso % (Auto) 0.4 Lymph # (Auto) 0.6 L [place] # (Auto) 0.7 Eos # (Auto) 0.0 Baso # (Auto) 0.0 Abs Immat Gran (auto) 0.01 Absolute Neuts (auto) 3.4 Absolute Nucleated RBC 0.000 Nucleated RBC % (auto) 0.0 Anion Gap Estim Creat Clear Calc Estimated GFR POC Glucose 120 H Fasting Glucose Calcium Total Bilirubin AST ALT Alkaline Phosphatase Total Protein Albumin Assessment and Plan (1) SBO (small bowel obstruction): Status: Acute Plan d3 58yo M prison resident presenting with N/V, admitted with JUHI developed worsening abd pain, CT showed SBO, NGT placed SBO - due to adhesions or clozapine, which has been held - NGT placed, per Surg will clamp for 4h then check risdual; unclamp if develops abd pain, distension, or N/V; remove if output <100mL - on pip/lona since 12/31- JUHI - resolving with volume repletion; losartan + furosemide held hyperNa - free water deficit of 3500 mL; will give D5W 125 mL/hr, recheck BMP in AM HTN - ARB held due to JUHI; continue metoprolol succinate HOCM - TTE 10/10/23: - Normal left ventricular cavity size. There is severely increased left ventricular wall thickness. The left ventricular systolic function is hyperdynamic. The visually estimated ejection fraction is >70%. - Dynamic LVOT obstruction noted. No obvious CON seen as before. Resting LVOT peak gradient 40 mm Hg, post valsalva 123 mm Hg. This is significantly worse than previous study. - Normal right ventricular cavity size and systolic function. - The left atrium is severely dilated. - Mildly elevated right atrial pressure. - There is mild dilatation of the sinuses of Valsalva measuring 4.00 cm and mild dilatation of the ascending aorta measuring 3.90 cm. CAD - continue ASA, atorvastatin, metoprolol succinate DM2 - lydia-dose lispro schizoaffective disorder - lorazepam, Psychiatry consult re clozapine. Continue trazodone, lurasidone VTE ppx - UFH dispo - eventual return to In my clinical judgment, the patient requires continued inpatient hospitalization for the following reasons: SBO requiring NGT, JUHI, hyperNa requiring IVF, Psychiatry consultation Total time managing care of this patient today: 45 minutes. Quality Stroke Does the patient have a stroke diagnosis?: No VTE Prior VTE?: No VTE Risk Level:: Medical - moderate - high VTE Device Contraindication: Treatment Not Indicated VTE Drug Contraindication: N/A - Med Ordered
[2024-01-02] MEDS: Morphine Sulfate 4 MG/ML CARTRIDGE IVPUSH (13:49)
--- NOTE | 2024-01-02 14:53 | PC.NURSE ---
NG tube clamped by Surgery PA this AM. LUCINA done this AM. No N/V. NG placed back to suction by surgical PA @ 1300 with >100cc returned. NG to continue low intermittent suction. 250cc out 7a-3p.
[2024-01-02 15:12] VITALS: BP 168/72; PULSE 76; RESP 16; TEMP 36.4; O2SAT 98
[2024-01-02 16:09] LABS: Glucose, Whole Blood 108 mg/dL (60-115)
[2024-01-02 19:38] VITALS: BP 149/75; PULSE 75; RESP 18; TEMP 36.1; O2SAT 98
[2024-01-02 20:02] LABS: Glucose, Whole Blood 120 mg/dL (60-115)
[2024-01-03 00:15] VITALS: PULSE 102; RESP 32; O2SAT 90
[2024-01-03] MEDS: Dextrose 5 % 1,000 ML 125 ML IVCONT ×2 (01:00→09:19)
[2024-01-03] MEDS: Piperacillin Sodium/Tazobactam 4.5 GM in 0.9 % Sodium Chloride 100 ML IV ×2 (02:00→09:20)
[2024-01-03 04:00] VITALS: BP 143/82; PULSE 68; RESP 18; TEMP 36.1; O2SAT 99
[2024-01-03] MEDS: Heparin Sodium,Porcine 5,000 UNIT/ML VIAL 5000 UNIT SUBCUT ×3 (05:47→22:07)
[2024-01-03] MEDS: Pantoprazole Sodium 40 MG/10 ML VIAL IVPUSH (05:48)
--- NOTE | 2024-01-03 06:40 | PC.NURSE ---
At 2055, pt was asking for his po Trazodone, diet reiterated to pt with po med restriction, pt became upset and anxious, Dr. Ray was notified, Dr. Ray ordered Zyprexa IM, pt refused Zyprexa and claimed he is allergic to it, even though its not on the list of Allergy meds, Dr. Ray was made aware. Lorazepam IV 1 mg given instead, pt complied and went to bed after, slept comfortably, Vital WNL, pt arousable with care.
[2024-01-03 07:15] VITALS: BP 166/86; PULSE 77; RESP 18; TEMP 36.6; O2SAT 95
[2024-01-03 07:30] LABS: Glucose, Whole Blood 130 mg/dL (60-115)
[2024-01-03] MEDS: LORazepam 2 MG/ML VIAL 1 MG IVPUSH ×2 (09:20→16:18)
[2024-01-03 09:31] LABS: MANUAL DIFF FLAG NO
[2024-01-03 09:34] LABS: Basophils Percent Auto 0.4 % (0-2); Eosinophils Percent Auto 0.5 % (0-4); Hematocrit 39.2 % (42.0-52.0); Hemoglobin 12.5 g/dl (14.0-18.0); Imm Gran Abs Auto 0.04 X10*3/uL (0.00-0.03); Imm Gran Pct Auto 0.7 % (0.0-0.4); Lymphocytes Absolute Auto 0.9 X10*3/uL (1.2-4.9); Lymphocytes Percent Auto 16.8 % (20-40); Mean Corpuscular HGB Conc 31.9 g/dl (31.0-36.0); Mean Corpuscular Hemoglobin 27.7 pg (27.0-33.0); Mean Corpuscular Volume 86.9 fL (80.0-98.0); Mean Platelet Volume 12.5 fL (9.4-12.4); Monocytes Absolute Auto 0.6 X10*3/uL (0.1-1.2); Monocytes Percent Auto 11.3 % (2-11); Neutrophils Absolute Auto 3.9 x10*3/uL (2.0-8.3); Neutrophils Percent Auto 70.3 % (45-73); Platelet Count 151 X10*3/uL (160-400); Red Blood Count 4.51 X10*6/uL (4.60-5.80); Red Cell Distribution Width 14.8 % (11.0-16.0); White Blood Count 5.5 X10*3/uL (4.8-10.8)
[2024-01-03 09:49] LABS: Alanine Aminotransferase 14 U/L (0-40); Albumin Level 3.5 g/dL (3.5-5.0); Alkaline Phosphatase 53 U/L (39-117); Anion Gap 11 (12-20); Aspartate Amino Transferase 16 U/L (5-37); Bilirubin Total 0.4 mg/dL (0.0-1.0); Blood Urea Nitrogen 28 mg/dL (9-16); Calcium 8.7 mg/dL (8.4-10.2); Carbon Dioxide 29 mmol/L (22-29); Chloride 113 mmol/L (96-108); Creatinine Clr Calc Pharmacy 71.4; Estimated Glomerular Filt Rate 59; Glucose Fasting 117 mg/dL (60-99); Potassium 3.4 mmol/L (3.3-5.1); Sodium 150 mmol/L (135-145); Total Protein 6.2 g/dL (6.5-8.0)
--- NOTE | 2024-01-03 09:59 | PM.PNGS ---
Subjective Subjective Date of Service: 01/03/24 Interval history: Unable to remove NGT yesterday afternoon, had high residual. NGT with scanty output overnight. Continues to pass flatus and has had two BMs. Denies abdominal pain or bloating. Physical Exam Vital Signs: Vital Signs: Last Vital Signs Temp 97.8 F 01/03/24 07:15 Pulse 77 01/03/24 07:15 Resp 18 01/03/24 07:15 BP 166/86 H 01/03/24 07:15 Pulse Ox 95 01/03/24 07:15 O2 Del Method Room Air 01/03/24 07:15 O2 Flow Rate 4 01/03/24 00:15 BMI result Body Mass Index 37.1 Const: General: comfortable, no acute distress and alert Orientation/consciousness: patient oriented x3 Resp: Effort & Inspection: normal respiratory effort GI: Inspection: No distended Palpation (GI): Soft to palpation, nontender and no guarding Skin: General skin exam: no rashes or lesions noted Neuro: General: patient oriented x3 Objective Data Active Medications Acetaminophen (Acetaminophen 325 Mg Tablet) 650 mg PO Q6H PRN PRN Reason: Pain, Mild (Pain Scale 1-3) Albuterol Sulfate (Albuterol Sulfate 90 Mcg 8 Gm Inhaler) 2 puff INHALE Q6H PRN PRN Reason: Shortness Of Breath Or Wheezing Aspirin (Aspirin Enteric Coated 81 Mg Tablet.) 81 mg PO DAILY@0800 [facility] Last Admin: 01/01/24 08:02 Dose: Not Given Documented By: MARCO A Non-Admin Reason: NPO Atorvastatin Calcium (Atorvastatin Calcium 20 Mg Tablet) 20 mg PO DAILY@1999 [facility] Last Admin: 12/31/23 21:43 Dose: 20 mg Documented By: HUYEN Comments: pt was vomiting Clozapine (Clozapine 100 Mg Tablet) 200 mg PO DAILY@1999 [facility] Last Admin: 12/31/23 21:44 Dose: 200 mg Documented By: HUYEN Clozapine (Clozapine 25 Mg Tablet) 75 mg PO DAILY@1999 [facility] Last Admin: 12/31/23 21:44 Dose: 75 mg Documented By: HUYEN Dextrose (Dextrose 50 % 25 Gm/50 Ml Syringe) 25 gm IVPUSH Q15M PRN; Protocol PRN Reason: per Hypoglycemia Standing Ord. Glucose (Glucose Gel 15 Gm Gel..Gram.) 15 gm PO Q15M PRN; Protocol PRN Reason: per Hypoglycemia Standing Ord. Heparin Sodium (Porcine) (Heparin Sodium,Porcine 5,000 Unit/Ml Vial) 5,000 unit SUBCUT Q8H [facility] Last Admin: 01/03/24 05:47 Dose: 5,000 unit Documented By: LEONARDO Piperacillin Sod/Tazobactam (Sod 4.5 gm/ Sodium Chloride) 100 mls @ 200 mls/hr IV Q6H [facility] Last Infusion: 01/03/24 09:58 Dose: Infused Documented By: ROSARIO Dextrose (D5w) 1,000 mls @ 125 mls/hr IVCONT .Q8H [facility] Last Admin: 01/03/24 09:19 Dose: 125 mls/hr Documented By: ROSARIO Insulin Human Lispro (Insulin Lispro 100 Unit/Ml 3 Ml Vial) 0 unit SUBCUT QIDACHS [facility]; Protocol Last Admin: 01/03/24 07:31 Dose: Not Given Documented By: ROSARIO Non-Admin Reason: See Note Lorazepam (Lorazepam 2 Mg/Ml Vial) 1 mg IVPUSH BID@0800,1600 [facility] Last Admin: 01/03/24 09:20 Dose: 1 mg Documented By: ROSARIO Lurasidone HCl (Lurasidone Hcl 20 Mg Tablet) 60 mg PO DAILY@0800 [facility] Last Admin: 01/01/24 08:02 Dose: Not Given Documented By: MARCO A Non-Admin Reason: NPO Metoprolol Succinate (Metoprolol Succinate Er 50 Mg Tab.Er.24h) 50 mg PO BID@0800,2000 [facility]; Protocol Last Admin: 01/01/24 08:02 Dose: Not Given Documented By: MARCO A Non-Admin Reason: NPO Morphine Sulfate (Morphine Sulfate 4 Mg/Ml Cartridge) 4 mg IVPUSH Q4H PRN; Protocol PRN Reason: Pain, Moderate(Pain Scale 4-6) Last Admin: 01/02/24 13:49 Dose: 4 mg Documented By: ASTON Ondansetron HCl (Ondansetron Hcl 4 Mg/2 Ml Vial) 4 mg IVPUSH Q4H PRN PRN Reason: Nausea and Vomiting Last Admin: 01/01/24 05:16 Dose: 4 mg Documented By: HUYEN Pantoprazole Sodium (Pantoprazole Sodium 40 Mg/10 Ml Vial) 40 mg IVPUSH BID@0630,1630 [facility] Last Admin: 01/03/24 05:48 Dose: 40 mg Documented By: LEONARDO Prochlorperazine Edisylate (Prochlorperazine Edisylate 10 Mg/2 Ml Vial) 5 mg IVPUSH Q4H PRN PRN Reason: Nausea and Vomiting Last Admin: 12/31/23 17:23 Dose: 5 mg Documented By: MARCO A Sodium Chloride (0.9 % Sodium Chloride Flush 3 Ml Syringe) 3 ml IVFLUSH QSHIFT [facility] Last Admin: 01/03/24 07:18 Dose: Not Given Documented By: ROSARIO Non-Admin Reason: Previously Administered Trazodone HCl (Trazodone Hcl 50 Mg Tablet) 50 mg PO DAILY@2000 [facility] Last Admin: 12/31/23 21:45 Dose: 50 mg Documented By: HUYEN Vitamin D (Cholecalciferol (Vitamin D3) 25 Mcg Tablet) 25 mcg PO DAILY@0800 [facility] Last Admin: 01/01/24 08:02 Dose: Not Given Documented By: MARCO A Non-Admin Reason: NPO Labs 01/03/24 08:55 01/03/24 08:55 Labs: Laboratory Results - last 24 hr 01/02/24 01/02/24 01/02/24 11:19 16:02 19:59 MCV MCH MCHC RDW Plt Count MPV Immature Gran % (Auto) Neut % (Auto) Lymph % (Auto) [place] % (Auto) Eos % (Auto) Baso % (Auto) Lymph # (Auto) [place] # (Auto) Eos # (Auto) Baso # (Auto) Abs Immat Gran (auto) Absolute Neuts (auto) Absolute Nucleated RBC Nucleated RBC % (auto) Anion Gap Estim Creat Clear Calc Estimated GFR POC Glucose 120 H 108 120 H Fasting Glucose Calcium Total Bilirubin AST ALT Alkaline Phosphatase Total Protein Albumin 01/03/24 01/03/24 07:16 08:55 MCV 86.9 MCH 27.7 MCHC 31.9 RDW 14.8 Plt Count 151 L MPV 12.5 H Immature Gran % (Auto) 0.7 H Neut % (Auto) 70.3 Lymph % (Auto) 16.8 L [place] % (Auto) 11.3 H Eos % (Auto) 0.5 Baso % (Auto) 0.4 Lymph # (Auto) 0.9 L [place] # (Auto) 0.6 Eos # (Auto) 0.0 Baso # (Auto) 0.0 Abs Immat Gran (auto) 0.04 H Absolute Neuts (auto) 3.9 Absolute Nucleated RBC 0.000 Nucleated RBC % (auto) 0.0 Anion Gap 11 L Estim Creat Clear Calc 71.4 Estimated GFR 59 POC Glucose 130 H Fasting Glucose 117 H Calcium 8.7 Total Bilirubin 0.4 AST 16 ALT 14 Alkaline Phosphatase 53 Total Protein 6.2 L Albumin 3.5 Procedures Date of Service Date of Service: 01/03/24 Progress Note: A&P Assessment and plan (1) SBO (small bowel obstruction): Status: Acute Plan Appears to be resolved. Scant NGT output overnight and now with evidence of GI function. Abd benign, soft, nondistended, nontender. Dc NGT. Advance to clear liquids and then further as tolerated. Time Spent With Patient Time: Total time managing care of this patient today ____ minutes. Quality Stroke Does the patient have a stroke diagnosis?: No VTE Prior VTE?: No VTE Risk Level:: Medical - moderate - high VTE Device Contraindication: Treatment Not Indicated VTE Drug Contraindication: N/A - Med Ordered
[2024-01-03] MEDS: Lurasidone HCl 20 MG TABLET 60 MG PO (10:06)
[2024-01-03] MEDS: Metoprolol Succinate ER 50 MG TAB.ER.24H PO ×2 (10:06→20:08)
--- NOTE | 2024-01-03 10:35 | HO.PM.IMPN ---
Subjective Subjective Date of Service: 01/03/24 Interval History: no abd pain, passing flatus and stool NGT with minimal output Review of Systems Review of Systems: Yes all other systems are reviewed and are negative Physical Exam Vital Signs: Vital Signs: Last Vital Signs Temp 97.8 F 01/03/24 07:15 Pulse 77 01/03/24 07:15 Resp 18 01/03/24 07:15 BP 166/86 H 01/03/24 07:15 Pulse Ox 95 01/03/24 07:15 O2 Del Method Room Air 01/03/24 07:15 O2 Flow Rate 4 01/03/24 00:15 BMI result Body Mass Index 37.1 Gen: in no acute distress HEENT: sclera anicteric, moist mucus membranes Neck: supple Lungs: clear to auscultation bilaterally Heart: regular rate and rhythm, no murmurs Abd: distended but not tender, bowel sounds present, NGT clamped Ext: no edema Skin: warm/well-perfused Neuro: alert and oriented x3, no focal findings Psych: appropriate affect Objective Data Active Medications Acetaminophen (Acetaminophen 325 Mg Tablet) 650 mg PO Q6H PRN PRN Reason: Pain, Mild (Pain Scale 1-3) Albuterol Sulfate (Albuterol Sulfate 90 Mcg 8 Gm Inhaler) 2 puff INHALE Q6H PRN PRN Reason: Shortness Of Breath Or Wheezing Aspirin (Aspirin Enteric Coated 81 Mg Tablet.Dr) 81 mg PO DAILY@0800 [facility] Last Admin: 01/01/24 08:02 Dose: Not Given Documented By: MARCO A Non-Admin Reason: NPO Atorvastatin Calcium (Atorvastatin Calcium 20 Mg Tablet) 20 mg PO DAILY@1999 [facility] Last Admin: 12/31/23 21:43 Dose: 20 mg Documented By: HUYEN Comments: pt was vomiting Clozapine (Clozapine 100 Mg Tablet) 200 mg PO DAILY@1999 [facility] Last Admin: 12/31/23 21:44 Dose: 200 mg Documented By: HUYEN Clozapine (Clozapine 25 Mg Tablet) 75 mg PO DAILY@1999 [facility] Last Admin: 12/31/23 21:44 Dose: 75 mg Documented By: HUYEN Dextrose (Dextrose 50 % 25 Gm/50 Ml Syringe) 25 gm IVPUSH Q15M PRN; Protocol PRN Reason: per Hypoglycemia Standing Ord. Glucose (Glucose Gel 15 Gm Gel..Gram.) 15 gm PO Q15M PRN; Protocol PRN Reason: per Hypoglycemia Standing Ord. Heparin Sodium (Porcine) (Heparin Sodium,Porcine 5,000 Unit/Ml Vial) 5,000 unit SUBCUT Q8H [facility] Last Admin: 01/03/24 05:47 Dose: 5,000 unit Documented By: LEONARDO Piperacillin Sod/Tazobactam (Sod 4.5 gm/ Sodium Chloride) 100 mls @ 200 mls/hr IV Q6H [facility] Last Infusion: 01/03/24 09:58 Dose: Infused Documented By: ROSARIO Dextrose (D5w) 1,000 mls @ 125 mls/hr IVCONT .Q8H [facility] Last Admin: 01/03/24 09:19 Dose: 125 mls/hr Documented By: ROSARIO Insulin Human Lispro (Insulin Lispro 100 Unit/Ml 3 Ml Vial) 0 unit SUBCUT QIDACHS [facility]; Protocol Last Admin: 01/03/24 07:31 Dose: Not Given Documented By: ROSARIO Non-Admin Reason: See Note Lorazepam (Lorazepam 2 Mg/Ml Vial) 1 mg IVPUSH BID@0800,1600 [facility] Last Admin: 01/03/24 09:20 Dose: 1 mg Documented By: ROSARIO Lurasidone HCl (Lurasidone Hcl 20 Mg Tablet) 60 mg PO DAILY@0800 [facility] Last Admin: 01/03/24 10:06 Dose: 60 mg Documented By: ROSARIO Metoprolol Succinate (Metoprolol Succinate Er 50 Mg Tab.Er.24h) 50 mg PO BID@0800,2000 [facility]; Protocol Last Admin: 01/03/24 10:06 Dose: 50 mg Documented By: ROSARIO Morphine Sulfate (Morphine Sulfate 4 Mg/Ml Cartridge) 4 mg IVPUSH Q4H PRN; Protocol PRN Reason: Pain, Moderate(Pain Scale 4-6) Last Admin: 01/02/24 13:49 Dose: 4 mg Documented By: ASTON Omeprazole (Omeprazole 20 Mg Capsule.Dr) 20 mg PO BID@0630,1630 [facility] Ondansetron HCl (Ondansetron Hcl 4 Mg/2 Ml Vial) 4 mg IVPUSH Q4H PRN PRN Reason: Nausea and Vomiting Last Admin: 01/01/24 05:16 Dose: 4 mg Documented By: HUYEN Prochlorperazine Edisylate (Prochlorperazine Edisylate 10 Mg/2 Ml Vial) 5 mg IVPUSH Q4H PRN PRN Reason: Nausea and Vomiting Last Admin: 12/31/23 17:23 Dose: 5 mg Documented By: MARCO A Sodium Chloride (0.9 % Sodium Chloride Flush 3 Ml Syringe) 3 ml IVFLUSH QSHIFT [facility] Last Admin: 01/03/24 07:18 Dose: Not Given Documented By: ROSARIO Non-Admin Reason: Previously Administered Trazodone HCl (Trazodone Hcl 50 Mg Tablet) 50 mg PO DAILY@2000 [facility] Last Admin: 12/31/23 21:45 Dose: 50 mg Documented By: HUYEN Vitamin D (Cholecalciferol (Vitamin D3) 25 Mcg Tablet) 25 mcg PO DAILY@0800 [facility] Last Admin: 01/01/24 08:02 Dose: Not Given Documented By: MARCO A Non-Admin Reason: NPO Labs 01/03/24 08:55 01/03/24 08:55 Labs: Laboratory Results - last 24 hr 01/02/24 01/02/24 01/02/24 11:19 16:02 19:59 MCV MCH MCHC RDW Plt Count MPV Immature Gran % (Auto) Neut % (Auto) Lymph % (Auto) [facility] % (Auto) Eos % (Auto) Baso % (Auto) Lymph # (Auto) [facility] # (Auto) Eos # (Auto) Baso # (Auto) Abs Immat Gran (auto) Absolute Neuts (auto) Absolute Nucleated RBC Nucleated RBC % (auto) Anion Gap Estim Creat Clear Calc Estimated GFR POC Glucose 120 H 108 120 H Fasting Glucose Calcium Total Bilirubin AST ALT Alkaline Phosphatase Total Protein Albumin 01/03/24 01/03/24 07:16 08:55 MCV 86.9 MCH 27.7 MCHC 31.9 RDW 14.8 Plt Count 151 L MPV 12.5 H Immature Gran % (Auto) 0.7 H Neut % (Auto) 70.3 Lymph % (Auto) 16.[address] [facility] % (Auto) 11.3 H Eos % (Auto) 0.5 Baso % (Auto) 0.4 Lymph # (Auto) 0.[address] [facility] # (Auto) 0.6 Eos # (Auto) 0.0 Baso # (Auto) 0.0 Abs Immat Gran (auto) 0.04 H Absolute Neuts (auto) 3.9 Absolute Nucleated RBC 0.000 Nucleated RBC % (auto) 0.0 Anion Gap 11 L Estim Creat Clear Calc 71.4 Estimated GFR 59 POC Glucose 130 H Fasting Glucose 117 H Calcium 8.7 Total Bilirubin 0.4 AST 16 ALT 14 Alkaline Phosphatase 53 Total Protein 6.2 L Albumin 3.5 Assessment and Plan (1) SBO (small bowel obstruction): Status: Acute Plan d3 58yo M [facility] resident presenting with N/V, admitted with JUHI developed worsening abd pain, CT showed SBO, NGT placed SBO - due to adhesions or clozapine, which has been held; discuss with Psychiatry and Surgery safety of resuming clozapine - seen by Surgery, d/c NGT today - d/c pip-lona JUHI - resolved with volume repletion; losartan + furosemide held hyperNa - continue D5W via IV, encourage free water PO intake, recheck BMP in AM HTN - ARB held due to JUHI; continue metoprolol succinate HOCM - TTE 10/10/23: - Normal left ventricular cavity size. There is severely increased left ventricular wall thickness. The left ventricular systolic function is hyperdynamic. The visually estimated ejection fraction is >70%. - Dynamic LVOT obstruction noted. No obvious CON seen as before. Resting LVOT peak gradient 40 mm Hg, post valsalva 123 mm Hg. This is significantly worse than previous study. - Normal right ventricular cavity size and systolic function. - The left atrium is severely dilated. - Mildly elevated right atrial pressure. - There is mild dilatation of the sinuses of Valsalva measuring 4.00 cm and mild dilatation of the ascending aorta measuring 3.90 cm. CAD - continue ASA, atorvastatin, metoprolol succinate DM2 - lydia-dose lispro schizoaffective disorder - lorazepam, Psychiatry consult re clozapine. Continue trazodone, lurasidone VTE ppx - UFH dispo - eventual return to In my clinical judgment, the patient requires continued inpatient hospitalization for the following reasons: SBO resolving, hyperNa requiring IVF, Psychiatry consultation Total time managing care of this patient today: 45 minutes. Quality Stroke Does the patient have a stroke diagnosis?: No VTE Prior VTE?: No VTE Risk Level:: Medical - moderate - high VTE Device Contraindication: Treatment Not Indicated VTE Drug Contraindication: N/A - Med Ordered
[2024-01-03 11:29] LABS: Glucose, Whole Blood 133 mg/dL (60-115)
--- NOTE | 2024-01-03 13:32 | PM.PSYCN ---
History of Present Illness Date of Service: 01/03/24 Chief Complaint: Acute Kidney Injury Reason for Consult: medication recs Requesting physician: Juan Boo Sources of Information: patient interviewed, chart reviewed and crisis/core team assessment reviewed HPI Narrative: This is a 58-year-old male with history of diabetes, essential hypertension HOCM, HLD, COPD JUDY, constipation, and schizoaffective disorder on both Clozaril and Latuda and on a Community [place], who presented to the emergency room complaining of diarrhea; he was eventually found to have a small-bowel obstruction and was admitted to medical floor. Surgery consult proceeding with conservative measures. Both surgery and hospitalist considered Clozaril to be possible and maybe even likely cause of small-bowel obstruction and consulted Psychiatry for recommendations on medication. Parts Advisor discussed case with Dr. Pacheco who knows patient's history and reports that patient requires clozapine to be safe and can get severely decompensated, including aggressive. Parts Advisor met with patient who is currently calm, fully oriented, logical and linear, organized and in good behavioral and impulse control. He understands that he has a small-bowel obstruction and that it may very well be due to clozapine; he also understands that continuing clozapine will leave him at continued risk for another bowel obstruction; pattern chart writer reviewed risks of continuing Clozaril including bowel obstruction, need for surgery, even . Patient understood the risks; he said he has been on clozapine a long time, agrees that it helps and agrees to continue taking it despite the risks. Patient is on Community [place] and pattern chart writer spoke with [place] guardian, document review attorney Veronica Kevin who said she defers to physician discretion regarding med management; she does not think he has an actual guardian (which patient confirms he does not). Past Psychiatric History: patient has had multiple psychiatric hospitalizations particularly over the past several years. He has not been able to restate belies on clozapine and his clozapine dose has been capped relatively moderate because of his cardiac conduction issues and question of CHF in the past. He had responded reportedly well to Latuda in the past he was less agitated on Depakote. on moseley order. [facility] Medical History Congestive heart failure COVID-19 Thought disorder Nocturnal hypoxemia Constipation COPD (chronic obstructive pulmonary disease) JUDY (obstructive sleep apnea) Smoker BPH (benign prostatic hyperplasia) Diabetes mellitus Obesity (BMI 30-39.9) Pure hypercholesterolemia Prolonged QT interval Essential hypertension HOCM (hypertrophic obstructive cardiomyopathy) Aggression Hypertension Coronary artery disease CHF (congestive heart failure) Cardiac arrhythmia Myocardial infarction Schizoaffective disorder Surgical History History of ankle surgery History of intestinal surgery History of transurethral resection of prostate Family History: patient was adopted Social History: patient not working not is on disability was living in a supportive apartment but has not been able to maintain this setting in an extended period of time. currently in a fdc. HS grad. SSDI income. Trauma History: has reported having been held at [employer] when he was 23 yo. Diagnostics Vital Signs (24Hr): Vital Signs - 24 hr 01/02/24 15:12 01/02/24 19:38 01/03/24 00:15 Temperature 97.6 F 97.0 F Pulse Rate 76 75 102 H Respiratory Rate 16 18 32 H Blood Pressure 168/72 H 149/75 H Pulse Oximetry 98 98 90 L Oxygen Delivery Method Nasal Cannula Nasal Cannula Nasal Cannula Oxygen Flow Rate 2 2 4 01/03/24 04:00 01/03/24 07:15 Temperature 97.0 F 97.8 F Pulse Rate 68 77 Respiratory Rate 18 18 Blood Pressure 143/82 H 166/86 H Pulse Oximetry 99 95 Oxygen Delivery Method Room Air Room Air Oxygen Flow Rate BMI result Body Mass Index 37.1 Labs 01/03/24 08:55 01/05/24 05:39 Labs: Laboratory Results - last 48 hr 01/01/24 01/01/24 01/01/24 14:50 16:02 20:06 WBC RBC Hgb Hct MCV MCH MCHC RDW Plt Count MPV Immature Gran % (Auto) Neut % (Auto) Lymph % (Auto) Rains % (Auto) Eos % (Auto) Baso % (Auto) Lymph # (Auto) Rains # (Auto) Eos # (Auto) Baso # (Auto) Abs Immat Gran (auto) Absolute Neuts (auto) Absolute Nucleated RBC Nucleated RBC % (auto) Sodium Potassium Chloride Carbon Dioxide Anion Gap BUN Creatinine Estim Creat Clear Calc Estimated GFR POC Glucose 154 H 144 H 114 Fasting Glucose Calcium Total Bilirubin AST ALT Alkaline Phosphatase Total Protein Albumin 01/02/24 01/02/24 01/02/24 06:00 07:18 07:23 WBC 4.7 L RBC 4.45 L Hgb 12.2 L Hct 38.5 L MCV 86.5 MCH 27.4 MCHC 31.7 RDW 15.1 Plt Count 144 L MPV 12.2 Immature Gran % (Auto) 0.2 Neut % (Auto) 72.1 Lymph % (Auto) 12.7 L Rains % (Auto) 14.6 H Eos % (Auto) 0.0 Baso % (Auto) 0.4 Lymph # (Auto) 0.6 L Rains # (Auto) 0.7 Eos # (Auto) 0.0 Baso # (Auto) 0.0 Abs Immat Gran (auto) 0.01 Absolute Neuts (auto) 3.4 Absolute Nucleated RBC 0.000 Nucleated RBC % (auto) 0.0 Sodium 150 H Potassium 3.9 Chloride 116 H Carbon Dioxide 28 Anion Gap 10 L BUN 48 H Creatinine 1.88 H Estim Creat Clear Calc 47.8 Estimated GFR 37 POC Glucose 114 Fasting Glucose 121 H Calcium 8.6 D Total Bilirubin 0.3 AST 13 ALT 13 Alkaline Phosphatase 50 Total Protein 6.0 L Albumin 3.5 01/02/24 01/02/24 01/02/24 11:19 16:02 19:59 WBC RBC Hgb Hct MCV MCH MCHC RDW Plt Count MPV Immature Gran % (Auto) Neut % (Auto) Lymph % (Auto) Rains % (Auto) Eos % (Auto) Baso % (Auto) Lymph # (Auto) Rains # (Auto) Eos # (Auto) Baso # (Auto) Abs Immat Gran (auto) Absolute Neuts (auto) Absolute Nucleated RBC Nucleated RBC % (auto) Sodium Potassium Chloride Carbon Dioxide Anion Gap BUN Creatinine Estim Creat Clear Calc Estimated GFR POC Glucose 120 H 108 120 H Fasting Glucose Calcium Total Bilirubin AST ALT Alkaline Phosphatase Total Protein Albumin 01/03/24 01/03/24 01/03/24 07:16 08:55 11:21 WBC 5.5 RBC 4.51 L Hgb 12.5 L Hct 39.2 L MCV 86.9 MCH 27.7 MCHC 31.9 RDW 14.8 Plt Count 151 L MPV 12.5 H Immature Gran % (Auto) 0.7 H Neut % (Auto) 70.3 Lymph % (Auto) 16.8 L Rains % (Auto) 11.3 H Eos % (Auto) 0.5 Baso % (Auto) 0.4 Lymph # (Auto) 0.9 L Rains # (Auto) 0.6 Eos # (Auto) 0.0 Baso # (Auto) 0.0 Abs Immat Gran (auto) 0.04 H Absolute Neuts (auto) 3.9 Absolute Nucleated RBC 0.000 Nucleated RBC % (auto) 0.0 Sodium 150 H Potassium 3.4 Chloride 113 H Carbon Dioxide 29 Anion Gap 11 L BUN 28 H Creatinine 1.26 Estim Creat Clear Calc 71.4 Estimated GFR 59 POC Glucose 130 H 133 H Fasting Glucose 117 H Calcium 8.7 Total Bilirubin 0.4 AST 16 ALT 14 Alkaline Phosphatase 53 Total Protein 6.2 L Albumin 3.5 Imaging Radiology Impressions: ITS Impressions Chest X-Ray 12/31/23 19:28 IMPRESSION: 1. Hypoexpanded lungs without acute process. 2. Distended stomach with recently ingested food. There are dilated small bowel 3. loops, question small bowel obstruction versus ileus. KUB X-Ray 12/31/23 19:55 IMPRESSION: 1. Hypoexpanded lungs without acute process. 2. Distended stomach with recently ingested food. There are dilated small bowel 3. loops, question small bowel obstruction versus ileus. Abdomen/Pelvis CT 01/01/24 04:35 IMPRESSION: 1. Dilated loops of small bowel in the abdomen with a relatively gradual transition in the right abdomen to nondilated bowel, suspicious for a small bowel obstruction. There is a segment of dilated small bowel in the central abdomen with adjacent stranding and suspected pneumatosis, suspicious for sequelae of bowel ischemia. 2. Branching pattern of gas in the left hepatic lobe, favored to reflect portal venous gas related to pneumatosis as described above. Trace gas is also present in the right hepatic lobe. 3. Trace perisplenic fluid. 4. Right anterior abdominal wall fat-containing ventral hernia. This critical result was discussed with Dr. Ray on 01/01/2024 5:56 AM, and it was ascertained that the content and urgency of the report was understood at the time of direct communication. Mental Status Exam Mental Status Exam Narrative: Pt is alert and oriented; behavior is cooperative, friendly and calm; patient is not in distress; dressed in hospital attire with unkempt hair, glasses; mood is described as euthymic and affect congruent; eye contact appropriate; Speech is normal rate, volume and prosody and not pressured; no psychomotor agitation/retardation present; thought process is grossly organized, logical and goal directed; Thought content is on current abdominal illness; otherwise pertinent to relevant topics and without any delusional content, paranoid ideations or grandiosity; denies any SI/HI. There is no evidence of perceptual disturbance. Patients insight and judgment appear intact, at baseline. Medications Medications Current Medications Acetaminophen (Acetaminophen 325 Mg Tablet) 650 mg PO Q6H PRN PRN Reason: Pain, Mild (Pain Scale 1-3) Albuterol Sulfate (Albuterol Sulfate 90 Mcg 8 Gm Inhaler) 2 puff INHALE Q6H PRN PRN Reason: Shortness Of Breath Or Wheezing Aspirin (Aspirin Enteric Coated 81 Mg Tablet.Dr) 81 mg PO DAILY@0800 [facility] Last Admin: 01/01/24 08:02 Dose: Not Given Atorvastatin Calcium (Atorvastatin Calcium 20 Mg Tablet) 20 mg PO DAILY@1999 [facility] Last Admin: 12/31/23 21:43 Dose: 20 mg Clozapine (Clozapine 100 Mg Tablet) 200 mg PO DAILY@1999 [facility] Last Admin: 12/31/23 21:44 Dose: 200 mg Clozapine (Clozapine 25 Mg Tablet) 75 mg PO DAILY@1999 [facility] Last Admin: 12/31/23 21:44 Dose: 75 mg Dextrose (Dextrose 50 % 25 Gm/50 Ml Syringe) 25 gm IVPUSH Q15M PRN; Protocol PRN Reason: per Hypoglycemia Standing Ord. Glucose (Glucose Gel 15 Gm Gel..Gram.) 15 gm PO Q15M PRN; Protocol PRN Reason: per Hypoglycemia Standing Ord. Heparin Sodium (Porcine) (Heparin Sodium,Porcine 5,000 Unit/Ml Vial) 5,000 unit SUBCUT Q8H [facility] Last Admin: 01/03/24 05:47 Dose: 5,000 unit Dextrose (D5w) 1,000 mls @ 125 mls/hr IVCONT .Q8H [facility] Last Admin: 01/03/24 09:19 Dose: 125 mls/hr Insulin Human Lispro (Insulin Lispro 100 Unit/Ml 3 Ml Vial) 0 unit SUBCUT QIDACHS [facility]; Protocol Last Admin: 01/03/24 11:56 Dose: Not Given Lorazepam (Lorazepam 2 Mg/Ml Vial) 1 mg IVPUSH BID@0800,1600 [facility] Last Admin: 01/03/24 09:20 Dose: 1 mg Lurasidone HCl (Lurasidone Hcl 20 Mg Tablet) 60 mg PO DAILY@08 [facility] Last Admin: 01/03/24 10:06 Dose: 60 mg Metoprolol Succinate (Metoprolol Succinate Er 50 Mg Tab.Er.24h) 50 mg PO BID@0800,1999 [facility]; Protocol Last Admin: 01/03/24 10:06 Dose: 50 mg Morphine Sulfate (Morphine Sulfate 4 Mg/Ml Cartridge) 4 mg IVPUSH Q4H PRN; Protocol PRN Reason: Pain, Moderate(Pain Scale 4-6) Last Admin: 01/02/24 13:49 Dose: 4 mg Omeprazole (Omeprazole 20 Mg Capsule.Dr) 20 mg PO BID@0630,163 [facility] Ondansetron HCl (Ondansetron Hcl 4 Mg/2 Ml Vial) 4 mg IVPUSH Q4H PRN PRN Reason: Nausea and Vomiting Last Admin: 01/01/24 05:16 Dose: 4 mg Prochlorperazine Edisylate (Prochlorperazine Edisylate 10 Mg/2 Ml Vial) 5 mg IVPUSH Q4H PRN PRN Reason: Nausea and Vomiting Last Admin: 12/31/23 17:23 Dose: 5 mg Sodium Chloride (0.9 % Sodium Chloride Flush 3 Ml Syringe) [facility] Admin: 01/03/24 11:14 Dose: Not Given Trazodone HCl (Trazodone Hcl 50 Mg Tablet) 50 mg PO DAILY@1999 [facility] Last Admin: 12/31/23 21:45 Dose: 50 mg Vitamin D (Cholecalciferol (Vitamin D3) 25 Mcg Tablet) 25 mcg PO DAILY@08 [facility] Last Admin: 01/01/24 08:02 Dose: Not Given Allergies Allergies Allergy/AdvReac Type Severity Reaction Status Date / Time lithium [[place] [facility]] Allergy Severe TOXICITY Verified 12/30/23 15:59 thiothixene Allergy Severe SWELLING Verified 12/30/23 15:59 barium sulfate Allergy Intermediate NAUSEA & Verified 12/30/23 15:59 [BARIUM SULFATE] VOMITING haloperidol Allergy Intermediate MUSCLE Verified 12/30/23 15:59 TENSION IN LEGS benztropine Allergy Unknown benztropine Verified 12/30/23 15:59 mesylate- unknown diphenhydramine Allergy Unknown urinary Verified 12/30/23 15:59 [From Benadryl] retention fluphenazine Allergy Unknown UNKNOWN Verified 12/30/23 15:59 gabapentin [From NEURONTIN] Allergy Unknown UNKNOWN Verified 12/30/23 15:59 prolixen Allergy Unknown Unknown Uncoded 12/04/23 13:07 Assessment & Plan Assessment & Plan (1) Schizoaffective disorder: Qualifiers: Schizoaffective disorder type: bipolar Qualified Code(s): F25.0 - Schizoaffective disorder, bipolar type Status: Acute Code(s): F25.9 - Schizoaffective disorder, unspecified (2) SBO (small bowel obstruction): Status: Acute Code(s): K56.609 - Unspecified intestinal obstruction, unspecified as to partial versus complete obstruction (3) Diabetes mellitus: Status: Acute Code(s): E11.9 - Type 2 diabetes mellitus without complications (4) BPH (benign prostatic hyperplasia): Qualifiers: Lower urinary tract symptom presence: symptoms present Lower urinary tract symptom detail: urinary frequency Qualified Code(s): N40.1 - Benign prostatic hyperplasia with lower urinary tract symptoms; R35.0 - Frequency of micturition Status: Acute Code(s): N40.0 - Benign prostatic hyperplasia without lower urinary tract symptoms (5) JUDY (obstructive sleep apnea): Status: Acute Code(s): G47.33 - Obstructive sleep apnea (adult) (pediatric) (6) Essential hypertension: Status: Acute Code(s): I10 - Essential (primary) hypertension Plan Patient is a 58-year-old male with history of diabetes, essential hypertension HOCM, HLD, COPD JUDY, constipation, and schizoaffective disorder on both Clozaril and Latuda and on a Community [place], with a nonsurgical small-bowel obstruction, possibly/likely due to Clozapine. Impression: -Pt has hx of severe psychotic illness with severe decompensation that includes aggressive and assaultive behavior. Reportedly he requires Clozapine for stability. Discussed case with dr. Pacheco who knows pt from past psych admissions and confirms need for Clozapine. -Patient is on Community [place]. Parts Advisor spoke with [place] guardian, document review attorney Veronica Kevin who said she will defer medication decisions to the physician; she does not think he has an actual guardian (and pt says he does not) -Discussed with Patient. Although court has ordered substituted judgment regarding medication management, he demonstrated capacity to understand current medical illness, it's likely association with Clozapine and risks of continuing with Clozapine. He agrees to continue with this medication. At this time, pattern chart writer concludes that pt requires Clozapine to be safe and that no other antipsychotic is available to replace Clozapine as an effective treatment for patients psychotic illness. Once cleared of obstruction, he will need to have Clozapine re-titrated with addition of scheduled effective, laxative/bowel regimen to prophylactically prevent further obstruction. Patient will likely need psychiatric admission to oversee Clozapine titration as it is likely too risky to have done in community (also, need to monitor for obstruction). Discussed case with Dr. Boo (and consulted surgery) RECS: restart Latuda now (low risk for obstruction) Restart Clozapine 25mg daily ONCE pt is cleared from obstruction (would then titrate by 25mg daily) Start effective bowl regimen to be continued as outpt as preventative measure for further obstruction Likely will need psychiatric admission for re-titration of Clozapine (due to risk of being under-meditated in community) Total time managing care of this patient today ____ minutes. Patient educated on: diagnosis, medication risk/benefits and medical condition Informed Consent: understands
[2024-01-03 15:32] VITALS: BP 158/74; PULSE 75; RESP 16; TEMP 36.4; O2SAT 96
[2024-01-03 16:13] LABS: Glucose, Whole Blood 112 mg/dL (60-115)
[2024-01-03] MEDS: Omeprazole 20 MG CAPSULE.DR PO (16:18)
--- NOTE | 2024-01-03 17:45 | PC.NURSE ---
pt bladder scanned for 188cc
[2024-01-03 19:43] VITALS: BP 148/79; PULSE 72; RESP 18; TEMP 36.1; O2SAT 95
[2024-01-03] MEDS: Atorvastatin Calcium 20 MG TABLET PO (20:08)
[2024-01-03] MEDS: traZODone HCL 50 MG TABLET PO (20:08)
[2024-01-03 20:44] LABS: Glucose, Whole Blood 137 mg/dL (60-115)
[2024-01-03] MEDS: Acetaminophen 325 MG TABLET 650 MG PO (22:06)
[2024-01-04] MEDS: Dextrose 5 % 1,000 ML 125 ML IVCONT ×3 (02:21→20:54)
[2024-01-04 03:47] VITALS: BP 152/69; PULSE 67; RESP 18; TEMP 36.6; O2SAT 99
[2024-01-04] MEDS: Acetaminophen 325 MG TABLET 650 MG PO ×3 (06:17→20:51)
[2024-01-04] MEDS: Heparin Sodium,Porcine 5,000 UNIT/ML VIAL 5000 UNIT SUBCUT ×3 (06:31→20:51)
[2024-01-04] MEDS: Omeprazole 20 MG CAPSULE.DR PO ×2 (06:31→16:37)
[2024-01-04 06:34] LABS: Anion Gap 9 (12-20); Blood Urea Nitrogen 17 mg/dL (9-16); Calcium 8.3 mg/dL (8.4-10.2); Carbon Dioxide 27 mmol/L (22-29); Chloride 112 mmol/L (96-108); Creatinine Clr Calc Pharmacy 78.2; Estimated Glomerular Filt Rate > 60; Glucose Random 133 mg/dL (60-115); Potassium 3.2 mmol/L (3.3-5.1); Sodium 145 mmol/L (135-145)
[2024-01-04 07:25] VITALS: BP 154/79; PULSE 62; RESP 18; TEMP 36.3; O2SAT 96
[2024-01-04 07:36] LABS: Glucose, Whole Blood 122 mg/dL (60-115)
[2024-01-04 08:37] LABS: Magnesium 2.1 mg/dL (1.6-2.6)
[2024-01-04] MEDS: Cholecalciferol (Vitamin D3) 25 MCG TABLET PO (09:24)
[2024-01-04] MEDS: Sennosides/Docusate Sodium TABLET 2 TAB PO (09:24)
[2024-01-04] MEDS: Lurasidone HCl 20 MG TABLET 60 MG PO (09:24)
[2024-01-04] MEDS: Aspirin Enteric Coated 81 MG TABLET.DR PO (09:24)
[2024-01-04] MEDS: Metoprolol Succinate ER 50 MG TAB.ER.24H PO ×2 (09:24→19:29)
[2024-01-04] MEDS: cloZAPine 25 MG TABLET PO (09:25)
[2024-01-04] MEDS: LORazepam 2 MG/ML VIAL 1 MG IVPUSH ×2 (09:25→16:37)
[2024-01-04] MEDS: Potassium Chloride Packet 20 MEQ PACKET PO (09:25)
[2024-01-04 11:05] LABS: Glucose, Whole Blood 134 mg/dL (60-115)
--- NOTE | 2024-01-04 12:12 | PM.PNGS ---
Subjective Subjective Date of Service: 01/04/24 Interval history: Patient tolerating liquid diet. Multiple BMs this morning. No abdominal complaints. Physical Exam Vital Signs: Vital Signs: Last Vital Signs Temp 97.3 F 01/04/24 07:25 Pulse 62 01/04/24 07:25 Resp 18 01/04/24 07:25 BP 154/79 H 01/04/24 07:25 Pulse Ox 96 01/04/24 07:25 O2 Del Method Room Air 01/04/24 07:25 O2 Flow Rate 4 01/03/24 00:15 BMI result Body Mass Index 37.1 Const: Other: Patient is sitting up in chair. GI: Other: Abdomen distended, soft, nontender. Objective Data Active Medications Acetaminophen (Acetaminophen 325 Mg Tablet) 650 mg PO Q6H PRN PRN Reason: Pain, Mild (Pain Scale 1-3) Last Admin: 01/04/24 06:17 Dose: 650 mg Documented By: SINDHU Albuterol Sulfate (Albuterol Sulfate 90 Mcg 8 Gm Inhaler) 2 puff INHALE Q6H PRN PRN Reason: Shortness Of Breath Or Wheezing Aspirin (Aspirin Enteric Coated 81 Mg Tablet.) 81 mg PO DAILY@08 [facility] Last Admin: 01/04/24 09:24 Dose: 81 mg Documented By: PHILLIP Atorvastatin Calcium (Atorvastatin Calcium 20 Mg Tablet) 20 mg PO DAILY@1999 [facility] Last Admin: 01/03/24 20:08 Dose: 20 mg Documented By: SINDHU Clozapine (Clozapine 100 Mg Tablet) 200 mg PO DAILY@1999 [facility] Last Admin: 12/31/23 21:44 Dose: 200 mg Documented By: HUYEN Clozapine (Clozapine 25 Mg Tablet) 75 mg PO DAILY@1999 [facility] Last Admin: 12/31/23 21:44 Dose: 75 mg Documented By: HUYEN Clozapine (Clozapine 25 Mg Tablet) 25 mg PO DAILY [facility] Last Admin: 01/04/24 09:25 Dose: 25 mg Documented By: PHILLIP Dextrose (Dextrose 50 % 25 Gm/50 Ml Syringe) 25 gm IVPUSH Q15M PRN; Protocol PRN Reason: per Hypoglycemia Standing Ord. Glucose (Glucose Gel 15 Gm Gel..Gram.) 15 gm PO Q15M PRN; Protocol PRN Reason: per Hypoglycemia Standing Ord. Heparin Sodium (Porcine) (Heparin Sodium,Porcine 5,000 Unit/Ml Vial) 5,000 unit SUBCUT Q8H [facility] Last Admin: 01/04/24 06:31 Dose: 5,000 unit Documented By: SINDHU Dextrose (D5w) 1,000 mls @ 125 mls/hr IVCONT .Q8H [facility] Last Admin: 01/04/24 12:03 Dose: 125 mls/hr Documented By: PHILLIP Insulin Human Lispro (Insulin Lispro 100 Unit/Ml 3 Ml Vial) 0 unit SUBCUT QIDACHS [facility]; Protocol Last Admin: 01/04/24 11:52 Dose: Not Given Documented By: PHILLIP Non-Admin Reason: No Insulin Coverage Lorazepam (Lorazepam 2 Mg/Ml Vial) 1 mg IVPUSH BID@0800,1600 [facility] Last Admin: 01/04/24 09:25 Dose: 1 mg Documented By: PHILLIP Lurasidone HCl (Lurasidone Hcl 20 Mg Tablet) 60 mg PO DAILY@0800 [facility] Last Admin: 01/04/24 09:24 Dose: 60 mg Documented By: PHILLIP Metoprolol Succinate (Metoprolol Succinate Er 50 Mg Tab.Er.24h) 50 mg PO BID@0800,2000 [facility]; Protocol Last Admin: 01/04/24 09:24 Dose: 50 mg Documented By: PHILLIP Morphine Sulfate (Morphine Sulfate 4 Mg/Ml Cartridge) 4 mg IVPUSH Q4H PRN; Protocol PRN Reason: Pain, Moderate(Pain Scale 4-6) Last Admin: 01/02/24 13:49 Dose: 4 mg Documented By: ASTON Omeprazole (Omeprazole 20 Mg Capsule.Dr) 20 mg PO BID@0630,1630 [facility] Last Admin: 01/04/24 06:31 Dose: 20 mg Documented By: SINDHU Ondansetron HCl (Ondansetron Hcl 4 Mg/2 Ml Vial) 4 mg IVPUSH Q4H PRN PRN Reason: Nausea and Vomiting Last Admin: 01/01/24 05:16 Dose: 4 mg Documented By: HUYEN Polyethylene Glycol (Polyethylene Glycol 3350 17 Gm Powd.Pack) 17 gm PO DAILY [facility] Last Admin: 01/04/24 07:52 Dose: Not Given Documented By: PHILLIP Non-Admin Reason: Patient Refused Prochlorperazine Edisylate (Prochlorperazine Edisylate 10 Mg/2 Ml Vial) 5 mg IVPUSH Q4H PRN PRN Reason: Nausea and Vomiting Last Admin: 12/31/23 17:23 Dose: 5 mg Documented By: MARCO A Senna/Docusate Sodium (Sennosides/Docusate Sodium Tablet) 2 tab PO DAILY [facility] Last Admin: 01/04/24 09:24 Dose: 2 tab Documented By: PHILLIP Sodium Chloride (0.9 % Sodium Chloride Flush 3 Ml Syringe) 3 ml IVFLUSH QSHIFT [facility] Last Admin: 01/04/24 07:51 Dose: Not Given Documented By: PHILLIP Non-Admin Reason: IV Running Trazodone HCl (Trazodone Hcl 50 Mg Tablet) 50 mg PO DAILY@2000 [facility] Last Admin: 01/03/24 20:08 Dose: 50 mg Documented By: SINDHU Vitamin D (Cholecalciferol (Vitamin D3) 25 Mcg Tablet) 25 mcg PO DAILY@0800 [facility] Last Admin: 01/04/24 09:24 Dose: 25 mcg Documented By: PHILLIP Labs 01/03/24 08:55 01/04/24 05:23 Labs: Laboratory Results - last 24 hr 01/03/24 01/03/24 01/04/24 16:09 20:38 05:23 Hold Purple Top SEE NOTE Anion Gap 9 L Estim Creat Clear Calc 78.2 Estimated GFR > 60 POC Glucose 112 137 H Random Glucose 133 H Calcium 8.3 L Magnesium 2.1 01/04/24 01/04/24 07:29 11:02 Hold Purple Top Anion Gap Estim Creat Clear Calc Estimated GFR POC Glucose 122 H 134 H Random Glucose Calcium Magnesium Procedures Date of Service Date of Service: 01/04/24 Progress Note: A&P Assessment and plan (1) Ileus: Status: Acute Plan Continue current plan; out of bed/ambulate, incentive spirometry, diet as tolerated. No acute surgical issues at this time. Time Spent With Patient Time: Total time managing care of this patient today ____ minutes. Quality Stroke Does the patient have a stroke diagnosis?: No VTE Prior VTE?: No VTE Risk Level:: Medical - moderate - high VTE Device Contraindication: Treatment Not Indicated VTE Drug Contraindication: N/A - Med Ordered
--- NOTE | 2024-01-04 12:18 | HO.PM.IMPN ---
Subjective Subjective Date of Service: 01/04/24 Interval History: tolerating clear liquids, no N/V/abd pain Review of Systems Review of Systems: Yes all other systems are reviewed and are negative Physical Exam Vital Signs: Vital Signs: Last Vital Signs Temp 97.3 F 01/04/24 07:25 Pulse 62 01/04/24 07:25 Resp 18 01/04/24 07:25 BP 154/79 H 01/04/24 07:25 Pulse Ox 96 01/04/24 07:25 O2 Del Method Room Air 01/04/24 07:25 O2 Flow Rate 4 01/03/24 00:15 BMI result Body Mass Index 37.1 Gen: in no acute distress HEENT: sclera anicteric, moist mucus membranes Neck: supple Lungs: clear to auscultation bilaterally Heart: regular rate and rhythm, systolic murmur along L sternal border Abd: nontender, normal bowel sounds Ext: no edema Skin: warm/well-perfused Neuro: alert and oriented x3, no focal findings Psych: appropriate affect Objective Data Active Medications Acetaminophen (Acetaminophen 325 Mg Tablet) 650 mg PO Q6H PRN PRN Reason: Pain, Mild (Pain Scale 1-3) Last Admin: 01/04/24 06:17 Dose: 650 mg Documented By: SINDHU Albuterol Sulfate (Albuterol Sulfate 90 Mcg 8 Gm Inhaler) 2 puff INHALE Q6H PRN PRN Reason: Shortness Of Breath Or Wheezing Aspirin (Aspirin Enteric Coated 81 Mg Tablet.) 81 mg PO DAILY@0800 [facility] Last Admin: 01/04/24 09:24 Dose: 81 mg Documented By: PHILLIP Atorvastatin Calcium (Atorvastatin Calcium 20 Mg Tablet) 20 mg PO DAILY@1999 [facility] Last Admin: 01/03/24 20:08 Dose: 20 mg Documented By: SINDHU Clozapine (Clozapine 100 Mg Tablet) 200 mg PO DAILY@1999 [facility] Last Admin: 12/31/23 21:44 Dose: 200 mg Documented By: HUYEN Clozapine (Clozapine 25 Mg Tablet) 75 mg PO DAILY@1999 [facility] Last Admin: 12/31/23 21:44 Dose: 75 mg Documented By: HUYEN Clozapine (Clozapine 25 Mg Tablet) 25 mg PO DAILY [facility] Last Admin: 01/04/24 09:25 Dose: 25 mg Documented By: HO.DOBROB Dextrose (Dextrose 50 % 25 Gm/50 Ml Syringe) 25 gm IVPUSH Q15M PRN; Protocol PRN Reason: per Hypoglycemia Standing Ord. Glucose (Glucose Gel 15 Gm Gel..Gram.) 15 gm PO Q15M PRN; Protocol PRN Reason: per Hypoglycemia Standing Ord. Heparin Sodium (Porcine) (Heparin Sodium,Porcine 5,000 Unit/Ml Vial) 5,000 unit SUBCUT Q8H [facility] Last Admin: 01/04/24 06:31 Dose: 5,000 unit Documented By: SINDHU Dextrose (D5w) 1,000 mls @ 125 mls/hr IVCONT .Q8H [facility] Last Admin: 01/04/24 12:03 Dose: 125 mls/hr Documented By: PHILLIP Insulin Human Lispro (Insulin Lispro 100 Unit/Ml 3 Ml Vial) 0 unit SUBCUT QIDACHS [facility]; Protocol Last Admin: 01/04/24 11:52 Dose: Not Given Documented By: PHILLIP Non-Admin Reason: No Insulin Coverage Lorazepam (Lorazepam 2 Mg/Ml Vial) 1 mg IVPUSH BID@0800,1600 [facility] Last Admin: 01/04/24 09:25 Dose: 1 mg Documented By: PHILLIP Lurasidone HCl (Lurasidone Hcl 20 Mg Tablet) 60 mg PO DAILY@0800 [facility] Last Admin: 01/04/24 09:24 Dose: 60 mg Documented By: PHILLIP Metoprolol Succinate (Metoprolol Succinate Er 50 Mg Tab.Er.24h) 50 mg PO BID@0800,2000 [facility]; Protocol Last Admin: 01/04/24 09:24 Dose: 50 mg Documented By: PHILLIP Morphine Sulfate (Morphine Sulfate 4 Mg/Ml Cartridge) 4 mg IVPUSH Q4H PRN; Protocol PRN Reason: Pain, Moderate(Pain Scale 4-6) Last Admin: 01/02/24 13:49 Dose: 4 mg Documented By: ASTON Omeprazole (Omeprazole 20 Mg Capsule.Dr) 20 mg PO BID@0630,1630 [facility] Last Admin: 01/04/24 06:31 Dose: 20 mg Documented By: SINDHU Ondansetron HCl (Ondansetron Hcl 4 Mg/2 Ml Vial) 4 mg IVPUSH Q4H PRN PRN Reason: Nausea and Vomiting Last Admin: 01/01/24 05:16 Dose: 4 mg Documented By: HUYEN Polyethylene Glycol (Polyethylene Glycol 3350 17 Gm Powd.Pack) 17 gm PO DAILY [facility] Last Admin: 01/04/24 07:52 Dose: Not Given Documented By: PHILLIP Non-Admin Reason: Patient Refused Prochlorperazine Edisylate (Prochlorperazine Edisylate 10 Mg/2 Ml Vial) 5 mg IVPUSH Q4H PRN PRN Reason: Nausea and Vomiting Last Admin: 12/31/23 17:23 Dose: 5 mg Documented By: MARCO A Senna/Docusate Sodium (Sennosides/Docusate Sodium Tablet) 2 tab PO DAILY [facility] Last Admin: 01/04/24 09:24 Dose: 2 tab Documented By: PHILLIP Sodium Chloride (0.9 % Sodium Chloride Flush 3 Ml Syringe) 3 ml IVFLUSH QSHIFT [facility] Last Admin: 01/04/24 07:51 Dose: Not Given Documented By: PHILLIP Non-Admin Reason: IV Running Trazodone HCl (Trazodone Hcl 50 Mg Tablet) 50 mg PO DAILY@2000 [facility] Last Admin: 01/03/24 20:08 Dose: 50 mg Documented By: SINDHU Vitamin D (Cholecalciferol (Vitamin D3) 25 Mcg Tablet) 25 mcg PO DAILY@0800 [facility] Last Admin: 01/04/24 09:24 Dose: 25 mcg Documented By: PHILLIP Labs 01/03/24 08:55 01/04/24 05:23 Labs: Laboratory Results - last 24 hr 01/03/24 01/03/24 01/04/24 16:09 20:38 05:23 Hold Purple Top SEE NOTE Anion Gap 9 L Estim Creat Clear Calc 78.2 Estimated GFR > 60 POC Glucose 112 137 H Random Glucose 133 H Calcium 8.3 L Magnesium 2.1 01/04/24 01/04/24 07:29 11:02 Hold Purple Top Anion Gap Estim Creat Clear Calc Estimated GFR POC Glucose 122 H 134 H Random Glucose Calcium Magnesium Assessment and Plan (1) SBO (small bowel obstruction): Status: Acute Plan d4 58yo M shelter resident presenting with N/V, admitted with JUHI developed worsening abd pain, CT showed SBO, NGT placed SBO - due to adhesions or clozapine, which was held - NGT placed 12/31, out 01/02 - discussed with Psychiatry + Surgery; restarted clozapine at lower dose today with aggressive bowel regimen JUHI - resolved with volume repletion; losartan + furosemide held hyperNa - resolved, encourage free water intake HTN - ARB held due to JUHI; continue metoprolol succinate HOCM - TTE 10/10/23: - Normal left ventricular cavity size. There is severely increased left ventricular wall thickness. The left ventricular systolic function is hyperdynamic. The visually estimated ejection fraction is >70%. - Dynamic LVOT obstruction noted. No obvious CON seen as before. Resting LVOT peak gradient 40 mm Hg, post valsalva 123 mm Hg. This is significantly worse than previous study. - Normal right ventricular cavity size and systolic function. - The left atrium is severely dilated. - Mildly elevated right atrial pressure. - There is mild dilatation of the sinuses of Valsalva measuring 4.00 cm and mild dilatation of the ascending aorta measuring 3.90 cm. CAD - continue ASA, atorvastatin, metoprolol succinate DM2 - lydia-dose lispro schizoaffective disorder - lorazepam, Psychiatry consulted about restarting clozapine. Continue trazodone, lurasidone VTE ppx - UFH dispo - eventual return to In my clinical judgment, the patient requires continued inpatient hospitalization for the following reasons: SBO resolving, Psychiatry consultation Total time managing care of this patient today: 45 minutes. Quality Stroke Does the patient have a stroke diagnosis?: No VTE Prior VTE?: No VTE Risk Level:: Medical - moderate - high VTE Device Contraindication: Treatment Not Indicated VTE Drug Contraindication: N/A - Med Ordered
--- NOTE | 2024-01-04 13:21 | MHC.CM.PN ---
EMR REVIEWED AND PER MD ROUNDS, PT IS NOT MEDICALLY CLEARED FOR DC. DIET WILL BE ADVANCED. CM WILL CONTINUE TO FOLLOW FOR ANY CHANGE TO DC NEEDS/PLAN
[2024-01-04 15:22] VITALS: BP 147/77; PULSE 71; RESP 20; TEMP 36.3; O2SAT 97
[2024-01-04 16:15] LABS: Glucose, Whole Blood 138 mg/dL (60-115)
--- NOTE | 2024-01-04 18:36 | PC.NURSE ---
Diet advanced, patient was able to have regular diet for lunch and dinner, tolerated well,
[2024-01-04 19:26] VITALS: BP 138/83; PULSE 72; RESP 18; TEMP 36.3; O2SAT 95
[2024-01-04] MEDS: 0.9 % Sodium Chloride Flush 3 ML SYRINGE IVFLUSH (19:29)
[2024-01-04] MEDS: Atorvastatin Calcium 20 MG TABLET PO (19:29)
[2024-01-04] MEDS: traZODone HCL 50 MG TABLET PO (19:29)
[2024-01-04 20:50] LABS: Glucose, Whole Blood 138 mg/dL (60-115)
[2024-01-05 03:23] VITALS: BP 149/80; PULSE 64; RESP 18; TEMP 36.1; O2SAT 98
[2024-01-05] MEDS: Dextrose 5 % 1,000 ML 125 ML IVCONT (04:47)
[2024-01-05] MEDS: Omeprazole 20 MG CAPSULE.DR PO ×2 (06:07→17:01)
[2024-01-05] MEDS: Heparin Sodium,Porcine 5,000 UNIT/ML VIAL 5000 UNIT SUBCUT ×3 (06:07→21:10)
[2024-01-05 06:21] LABS: Anion Gap 12 (12-20); Blood Urea Nitrogen 11 mg/dL (9-16); Calcium 8.5 mg/dL (8.4-10.2); Carbon Dioxide 26 mmol/L (22-29); Chloride 111 mmol/L (96-108); Creatinine Clr Calc Pharmacy 73.7; Estimated Glomerular Filt Rate > 60; Glucose Random 142 mg/dL (60-115); Potassium 3.5 mmol/L (3.3-5.1); Sodium 145 mmol/L (135-145)
[2024-01-05 07:21] VITALS: BP 142/79; PULSE 74; RESP 16; TEMP 36.1; O2SAT 95
[2024-01-05 07:48] LABS: Glucose, Whole Blood 134 mg/dL (60-115)
[2024-01-05] MEDS: Lurasidone HCl 20 MG TABLET 60 MG PO (08:15)
[2024-01-05] MEDS: Metoprolol Succinate ER 50 MG TAB.ER.24H PO ×2 (08:15→21:10)
[2024-01-05] MEDS: Cholecalciferol (Vitamin D3) 25 MCG TABLET PO (08:15)
[2024-01-05] MEDS: Aspirin Enteric Coated 81 MG TABLET.DR PO (08:15)
[2024-01-05] MEDS: cloZAPine 25 MG TABLET PO (08:15)
[2024-01-05] MEDS: 0.9 % Sodium Chloride Flush 3 ML SYRINGE IVFLUSH ×2 (08:20→17:01)
[2024-01-05] MEDS: LORazepam 2 MG/ML VIAL 1 MG IVPUSH ×2 (08:20→17:01)
--- NOTE | 2024-01-05 10:05 | HO.PM.IMPN ---
Subjective Subjective Date of Service: 01/05/24 Interval History: tolerating diet; no abd pain; passing stool and flatus Review of Systems Review of Systems: Yes all other systems are reviewed and are negative Physical Exam Vital Signs: Vital Signs: Last Vital Signs Temp 97.0 F 01/05/24 07:21 Pulse 74 01/05/24 07:21 Resp 16 01/05/24 07:21 BP 142/79 H 01/05/24 07:21 Pulse Ox 95 01/05/24 07:21 O2 Del Method Room Air 01/05/24 07:21 O2 Flow Rate 2 01/05/24 03:23 BMI result Body Mass Index 37.1 Gen: in no acute distress HEENT: sclera anicteric, moist mucus membranes Neck: supple Lungs: clear to auscultation bilaterally Heart: regular rate and rhythm, systolic murmur along L sternal border Abd: nontender, normal bowel sounds Ext: no edema Skin: warm/well-perfused Neuro: alert and oriented x3, no focal findings Psych: appropriate affect Objective Data Active Medications Acetaminophen (Acetaminophen 325 Mg Tablet) 650 mg PO Q6H PRN PRN Reason: Pain, Mild (Pain Scale 1-3) Last Admin: 01/04/24 20:51 Dose: 650 mg Documented By: MEET Albuterol Sulfate (Albuterol Sulfate 90 Mcg 8 Gm Inhaler) 2 puff INHALE Q6H PRN PRN Reason: Shortness Of Breath Or Wheezing Aspirin (Aspirin Enteric Coated 81 Mg Tablet.) 81 mg PO DAILY@0800 [facility] Last Admin: 01/05/24 08:15 Dose: 81 mg Documented By: PHILLIP Atorvastatin Calcium (Atorvastatin Calcium 20 Mg Tablet) 20 mg PO DAILY@1999 [facility] Last Admin: 01/04/24 19:29 Dose: 20 mg Documented By: MEET Clozapine (Clozapine 100 Mg Tablet) 200 mg PO DAILY@1999 [facility] Last Admin: 12/31/23 21:44 Dose: 200 mg Documented By: HUYEN Clozapine (Clozapine 25 Mg Tablet) 75 mg PO DAILY@1999 [facility] Last Admin: 12/31/23 21:44 Dose: 75 mg Documented By: HUYEN Clozapine (Clozapine 25 Mg Tablet) 25 mg PO DAILY [facility] Last Admin: 01/05/24 08:15 Dose: 25 mg Documented By: PHILLIP Dextrose (Dextrose 50 % 25 Gm/50 Ml Syringe) 25 gm IVPUSH Q15M PRN; Protocol PRN Reason: per Hypoglycemia Standing Ord. Glucose (Glucose Gel 15 Gm Gel..Gram.) 15 gm PO Q15M PRN; Protocol PRN Reason: per Hypoglycemia Standing Ord. Heparin Sodium (Porcine) (Heparin Sodium,Porcine 5,000 Unit/Ml Vial) 5,000 unit SUBCUT Q8H [facility] Last Admin: 01/05/24 06:07 Dose: 5,000 unit Documented By: MEET Insulin Human Lispro (Insulin Lispro 100 Unit/Ml 3 Ml Vial) 0 unit SUBCUT QIDACHS [facility]; Protocol Last Admin: 01/05/24 07:52 Dose: Not Given Documented By: PHILLIP Non-Admin Reason: No Insulin Coverage Lorazepam (Lorazepam 2 Mg/Ml Vial) 1 mg IVPUSH BID@0800,1600 [facility] Last Admin: 01/05/24 08:20 Dose: 1 mg Documented By: PHILLIP Lurasidone HCl (Lurasidone Hcl 20 Mg Tablet) 60 mg PO DAILY@0800 [facility] Last Admin: 01/05/24 08:15 Dose: 60 mg Documented By: PHILLIP Metoprolol Succinate (Metoprolol Succinate Er 50 Mg Tab.Er.24h) 50 mg PO BID@0800,2000 [facility]; Protocol Last Admin: 01/05/24 08:15 Dose: 50 mg Documented By: PHILLIP Morphine Sulfate (Morphine Sulfate 4 Mg/Ml Cartridge) 4 mg IVPUSH Q4H PRN; Protocol PRN Reason: Pain, Moderate(Pain Scale 4-6) Last Admin: 01/02/24 13:49 Dose: 4 mg Documented By: ASTON Omeprazole (Omeprazole 20 Mg Capsule.) 20 mg PO BID@0630,1630 [facility] Last Admin: 01/05/24 06:07 Dose: 20 mg Documented By: MEET Ondansetron HCl (Ondansetron Hcl 4 Mg/2 Ml Vial) 4 mg IVPUSH Q4H PRN PRN Reason: Nausea and Vomiting Last Admin: 01/01/24 05:16 Dose: 4 mg Documented By: HUYEN Polyethylene Glycol (Polyethylene Glycol 3350 17 Gm Powd.Pack) 17 gm PO DAILY [facility] Last Admin: 01/05/24 08:21 Dose: Not Given Documented By: PHILLIP Non-Admin Reason: Patient Refused Prochlorperazine Edisylate (Prochlorperazine Edisylate 10 Mg/2 Ml Vial) 5 mg IVPUSH Q4H PRN PRN Reason: Nausea and Vomiting Last Admin: 12/31/23 17:23 Dose: 5 mg Documented By: MARCO A Senna/Docusate Sodium (Sennosides/Docusate Sodium Tablet) 2 tab PO DAILY [facility] Last Admin: 01/05/24 08:21 Dose: Not Given Documented By: PHILLIP Non-Admin Reason: Patient Refused Sodium Chloride (0.9 % Sodium Chloride Flush 3 Ml Syringe) 3 ml IVFLUSH QSHIFT [facility] Last Admin: 01/05/24 08:20 Dose: 3 ml Documented By: PHILLIP Trazodone HCl (Trazodone Hcl 50 Mg Tablet) 50 mg PO DAILY@2000 [facility] Last Admin: 01/04/24 19:29 Dose: 50 mg Documented By: MEET Vitamin D (Cholecalciferol (Vitamin D3) 25 Mcg Tablet) 25 mcg PO DAILY@0800 [facility] Last Admin: 01/05/24 08:15 Dose: 25 mcg Documented By: PHILLIP Labs 01/03/24 08:55 01/05/24 05:39 Labs: Laboratory Results - last 24 hr 01/04/24 01/04/24 01/04/24 11:02 16:05 20:15 Hold Purple Top Anion Gap Estim Creat Clear Calc Estimated GFR POC Glucose 134 H 138 H 138 H Random Glucose Calcium 01/05/24 01/05/24 05:39 07:20 Hold Purple Top SEE NOTE Anion Gap 12 Estim Creat Clear Calc 73.7 Estimated GFR > 60 POC Glucose 134 H Random Glucose 142 H Calcium 8.5 Assessment and Plan (1) SBO (small bowel obstruction): Status: Acute Plan d5 58yo M senior living resident presenting with N/V, admitted with JUHI developed worsening abd pain, CT showed SBO, NGT placed SBO - due to adhesions or clozapine, which was held - NGT placed 12/31, out 01/02 - discussed with Psychiatry + Surgery; restarted clozapine at lower dose 01/03 with aggressive bowel regimen; Psychiatry to guide titration JUHI - resolved with volume repletion; losartan + furosemide held hyperNa - resolved, encourage free water intake, d/c D5W HTN - ARB held due to JUHI; continue metoprolol succinate HOCM - TTE 10/10/23: - Normal left ventricular cavity size. There is severely increased left ventricular wall thickness. The left ventricular systolic function is hyperdynamic. The visually estimated ejection fraction is >70%. - Dynamic LVOT obstruction noted. No obvious CON seen as before. Resting LVOT peak gradient 40 mm Hg, post valsalva 123 mm Hg. This is significantly worse than previous study. - Normal right ventricular cavity size and systolic function. - The left atrium is severely dilated. - Mildly elevated right atrial pressure. - There is mild dilatation of the sinuses of Valsalva measuring 4.00 cm and mild dilatation of the ascending aorta measuring 3.90 cm. CAD - continue ASA, atorvastatin, metoprolol succinate DM2 - lydia-dose lispro schizoaffective disorder - lorazepam, Psychiatry consulted about restarting clozapine. Continue trazodone, lurasidone VTE ppx - UFH dispo - PT consult In my clinical judgment, the patient requires continued inpatient hospitalization for the following reasons: SBO resolving, Psychiatry consultation Total time managing care of this patient today: 40 minutes. Quality Stroke Does the patient have a stroke diagnosis?: No VTE Prior VTE?: No VTE Risk Level:: Medical - moderate - high VTE Device Contraindication: Treatment Not Indicated VTE Drug Contraindication: N/A - Med Ordered
[2024-01-05 11:49] LABS: Glucose, Whole Blood 123 mg/dL (60-115)
--- NOTE | 2024-01-05 13:23 | P.CDIM_ITS ---
PROVIDER RESPONSE TEXT: To clarify, the appropriate diagnosis supported by the clinical indicators: Congestive heart failure: chronic HFpEF QUERY TEXT: PHYSICIAN'S DOCUMENTATION REQUEST Date of Query: 01/03/2024 09:46 AM EDT Patient Name: Navid Carvalho Admit Date: 12/31/2023 Dear Juan Boo, A review of the medical record indicates additional documentation may be needed. Please review below and update the documentation accordingly. Clinical Indicators: PMH: Congestive heart failure Home med: Furosemide 20 mg PO daily HOCM Please provide further specificity regarding the most likely type and acuity of the noted PMH of CHF: Congestive heart failure chronic, acute, acute on chronic, diastolic/systolic etc. Other Other (explain) Clinically unable to determine (explain) Thank you, Farideh Bryant, CCS, CDIS Use of terms such as suspected, likely, concern for, or probable (associated with a specific diagnosi s that is being evaluated, monitored, or treated as if it exists) are acceptable and can be coded in the inpatient se tting, when documented at the time of discharge. Please use your independent medical judgment in providing your response. THIS QUERY IS PART OF THE PERMANENT MEDICAL RECORD
[2024-01-05 15:19] VITALS: BP 144/67; PULSE 80; RESP 18; TEMP 36.1; O2SAT 96
[2024-01-05 15:54] VITALS: BP 144/67; PULSE 80; O2SAT 96
[2024-01-05 16:24] LABS: Glucose, Whole Blood 130 mg/dL (60-115)
--- NOTE | 2024-01-05 18:36 | PC.NURSE ---
IV removed this evening. Dr. Ema ashrafayed patient to remain without IV access at this time.
[2024-01-05 19:32] VITALS: BP 114/77; PULSE 81; RESP 19; TEMP 36.3; O2SAT 94
[2024-01-05 20:09] LABS: Glucose, Whole Blood 117 mg/dL (60-115)
[2024-01-05] MEDS: traZODone HCL 50 MG TABLET PO (21:09)
[2024-01-05] MEDS: Atorvastatin Calcium 20 MG TABLET PO (21:10)
[2024-01-06 03:07] VITALS: BP 127/71; PULSE 92; RESP 16; TEMP 36.2; O2SAT 94
[2024-01-06] MEDS: Heparin Sodium,Porcine 5,000 UNIT/ML VIAL 5000 UNIT SUBCUT ×3 (05:54→19:02)
[2024-01-06] MEDS: Omeprazole 20 MG CAPSULE.DR PO ×2 (05:54→17:17)
[2024-01-06 07:00] VITALS: BP 119/58; PULSE 82; RESP 17; TEMP 36.1; O2SAT 97
[2024-01-06 07:24] LABS: Glucose, Whole Blood 107 mg/dL (60-115)
--- NOTE | 2024-01-06 08:52 | P.PNIM_ITS ---
Subjective Subjective Date of Service: 01/06/24 Interval History: denies abd pain, passing stool + flatus but abd seems more distended tolerating diet Review of Systems Review of Systems: Yes all other systems are reviewed and are negative Physical Exam 2 Vital Signs: Vital Signs: Last Vital Signs Temp 97 F 01/06/24 07:00 Pulse 82 01/06/24 07:00 Resp 17 01/06/24 07:00 BP 119/58 L 01/06/24 07:00 Pulse Ox 97 01/06/24 07:00 O2 Del Method Nasal Cannula 01/06/24 07:00 O2 Flow Rate 2 01/05/24 03:23 BMI result Body Mass Index 37.1 Gen: in no acute distress HEENT: sclera anicteric, moist mucus membranes Neck: supple Lungs: clear to auscultation bilaterally Heart: regular rate and rhythm, systolic murmur along L sternal border Abd: nontender but distended though with scattered bowel sounds Ext: no edema Skin: warm/well-perfused Neuro: alert and oriented x3, no focal findings Psych: appropriate affect Objective Data Active Medications Acetaminophen (Acetaminophen 325 Mg Tablet) 650 mg PO Q6H PRN PRN Reason: Pain, Mild (Pain Scale 1-3) Last Admin: 01/04/24 20:51 Dose: 650 mg Documented By: MEET Albuterol Sulfate (Albuterol Sulfate 90 Mcg 8 Gm Inhaler) 2 puff INHALE Q6H PRN PRN Reason: Shortness Of Breath Or Wheezing Aspirin (Aspirin Enteric Coated 81 Mg Tablet.) 81 mg PO DAILY@0800 [facility] Last Admin: 01/05/24 08:15 Dose: 81 mg Documented By: PHILLIP Atorvastatin Calcium (Atorvastatin Calcium 20 Mg Tablet) 20 mg PO DAILY@1999 [facility] Last Admin: 01/05/24 21:10 Dose: 20 mg Documented By: HUYEN Clozapine (Clozapine 100 Mg Tablet) 200 mg PO DAILY@1999 [facility] Last Admin: 12/31/23 21:44 Dose: 200 mg Documented By: HUYEN Clozapine (Clozapine 25 Mg Tablet) 75 mg PO DAILY@1999 [facility] Last Admin: 12/31/23 21:44 Dose: 75 mg Documented By: HUYEN Clozapine (Clozapine 25 Mg Tablet) 25 mg PO DAILY [facility] Last Admin: 01/05/24 08:15 Dose: 25 mg Documented By: PHILLIP Dextrose (Dextrose 50 % 25 Gm/50 Ml Syringe) 25 gm IVPUSH Q15M PRN; Protocol PRN Reason: per Hypoglycemia Standing Ord. Glucose (Glucose Gel 15 Gm Gel..Gram.) 15 gm PO Q15M PRN; Protocol PRN Reason: per Hypoglycemia Standing Ord. Heparin Sodium (Porcine) (Heparin Sodium,Porcine 5,000 Unit/Ml Vial) 5,000 unit SUBCUT Q8H [facility] Last Admin: 01/06/24 05:54 Dose: 5,000 unit Documented By: HUYEN Insulin Human Lispro (Insulin Lispro 100 Unit/Ml 3 Ml Vial) 0 unit SUBCUT QIDACHS [facility]; Protocol Last Admin: 01/06/24 07:30 Dose: Not Given Documented By: CATE Non-Admin Reason: No Insulin Coverage Lorazepam (Lorazepam 2 Mg/Ml Vial) 1 mg IVPUSH BID@0800,1600 [facility] Last Admin: 01/05/24 17:01 Dose: 1 mg Documented By: CATE Lurasidone HCl (Lurasidone Hcl 20 Mg Tablet) 60 mg PO DAILY@0800 [facility] Last Admin: 01/05/24 08:15 Dose: 60 mg Documented By: PHILLIP Metoprolol Succinate (Metoprolol Succinate Er 50 Mg Tab.Er.24h) 50 mg PO BID@0800,2000 [facility]; Protocol Last Admin: 01/05/24 21:10 Dose: 50 mg Documented By: HUYEN Morphine Sulfate (Morphine Sulfate 4 Mg/Ml Cartridge) 4 mg IVPUSH Q4H PRN; Protocol PRN Reason: Pain, Moderate(Pain Scale 4-6) Last Admin: 01/02/24 13:49 Dose: 4 mg Documented By: ASTON Omeprazole (Omeprazole 20 Mg Capsule.Dr) 20 mg PO BID@0630,1630 [facility] Last Admin: 01/06/24 05:54 Dose: 20 mg Documented By: HUYEN Ondansetron HCl (Ondansetron Hcl 4 Mg/2 Ml Vial) 4 mg IVPUSH Q4H PRN PRN Reason: Nausea and Vomiting Last Admin: 01/01/24 05:16 Dose: 4 mg Documented By: HUYEN Polyethylene Glycol (Polyethylene Glycol 3350 17 Gm Powd.Pack) 17 gm PO DAILY [facility] Last Admin: 01/05/24 08:21 Dose: Not Given Documented By: PHILLIP Non-Admin Reason: Patient Refused Prochlorperazine Edisylate (Prochlorperazine Edisylate 10 Mg/2 Ml Vial) 5 mg IVPUSH Q4H PRN PRN Reason: Nausea and Vomiting Last Admin: 12/31/23 17:23 Dose: 5 mg Documented By: MARCO A Senna/Docusate Sodium (Sennosides/Docusate Sodium Tablet) 2 tab PO DAILY [facility] Last Admin: 01/05/24 08:21 Dose: Not Given Documented By: PHILLIP Non-Admin Reason: Patient Refused Sodium Chloride (0.9 % Sodium Chloride Flush 3 Ml Syringe) 3 ml IVFLUSH QSHIFT [facility] Last Admin: 01/06/24 07:30 Dose: Not Given Documented By: CATE Non-Admin Reason: No Access Trazodone HCl (Trazodone Hcl 50 Mg Tablet) 50 mg PO DAILY@1999 [facility] Last Admin: 01/05/24 21:09 Dose: 50 mg Documented By: HUYEN Vitamin D (Cholecalciferol (Vitamin D3) 25 Mcg Tablet) 25 mcg PO DAILY@0800 [facility] Last Admin: 01/05/24 08:15 Dose: 25 mcg Documented By: PHILLIP Labs 01/03/24 08:55 01/05/24 05:39 Labs: Laboratory Results - last 24 hr 01/05/24 01/05/24 01/05/24 11:45 16:16 19:42 POC Glucose 123 H 130 H 117 H 01/06/24 07:17 POC Glucose 107 Assessment and Plan (1) SBO (small bowel obstruction): Status: Acute Plan d6 58yo M fdc resident presenting with N/V, admitted with JUHI developed worsening abd pain, CT showed SBO, NGT placed SBO - due to adhesions or clozapine, which was held - NGT placed 12/31, out 01/02 - discussed with Psychiatry + Surgery; restarted clozapine at lower dose 01/03 with aggressive bowel regimen; Psychiatry to guide titration - repeat AXR now schizoaffective disorder - lorazepam, Psychiatry consulted about restarting clozapine. Started 25 mg daily on 01/03. Per Dr Garcia recommend transfer to inpatient psychiatry for clozapine titration. - continue trazodone, lurasidone JUHI - resolved with volume repletion; losartan + furosemide held hyperNa - resolved, encourage free water intake, d/c'ed D5W HTN - ARB held due to JUHI; continue metoprolol succinate HOCM - TTE 10/10/23: - Normal left ventricular cavity size. There is severely increased left ventricular wall thickness. The left ventricular systolic function is hyperdynamic. The visually estimated ejection fraction is >70%. - Dynamic LVOT obstruction noted. No obvious CON seen as before. Resting LVOT peak gradient 40 mm Hg, post valsalva 123 mm Hg. This is significantly worse than previous study. - Normal right ventricular cavity size and systolic function. - The left atrium is severely dilated. - Mildly elevated right atrial pressure. - There is mild dilatation of the sinuses of Valsalva measuring 4.00 cm and mild dilatation of the ascending aorta measuring 3.90 cm. CAD - continue ASA, atorvastatin, metoprolol succinate DM2 - lydia-dose lispro VTE ppx - UFH dispo - PT consulted, recommend AIR but 1st needs in psychiatry for clozapine titration In my clinical judgment, the patient requires continued inpatient hospitalization for the following reasons: SBO, transfer to Psychiatry Total time managing care of this patient today: 35 minutes. Quality Stroke Does the patient have a stroke diagnosis?: No VTE Prior VTE?: No VTE Risk Level:: Medical - moderate - high VTE Device Contraindication: Treatment Not Indicated VTE Drug Contraindication: N/A - Med Ordered
[2024-01-06] MEDS: cloZAPine 25 MG TABLET PO (08:58)
[2024-01-06] MEDS: Lurasidone HCl 20 MG TABLET 60 MG PO (08:58)
[2024-01-06] MEDS: Cholecalciferol (Vitamin D3) 25 MCG TABLET PO (08:58)
[2024-01-06] MEDS: Aspirin Enteric Coated 81 MG TABLET.DR PO (08:58)
[2024-01-06] MEDS: Metoprolol Succinate ER 50 MG TAB.ER.24H PO ×2 (08:58→19:02)
[2024-01-06] MEDS: LORazepam 1 MG TABLET PO ×2 (09:09→19:02)
[2024-01-06 11:09] LABS: Glucose, Whole Blood 125 mg/dL (60-115)
[2024-01-06 15:06] VITALS: BP 125/69; PULSE 82; RESP 16; TEMP 36.2; O2SAT 95
[2024-01-06 16:22] LABS: Glucose, Whole Blood 105 mg/dL (60-115)
[2024-01-06] MEDS: traZODone HCL 50 MG TABLET PO (19:02)
[2024-01-06] MEDS: Atorvastatin Calcium 20 MG TABLET PO (19:02)
[2024-01-06 19:55] VITALS: BP 143/71; PULSE 83; RESP 18; TEMP 36; O2SAT 97
[2024-01-06 20:22] LABS: Glucose, Whole Blood 119 mg/dL (60-115)
[2024-01-07 03:19] VITALS: BP 132/79; PULSE 87; RESP 18; TEMP 36.1; O2SAT 96
[2024-01-07] MEDS: Omeprazole 20 MG CAPSULE.DR PO ×2 (06:30→15:43)
[2024-01-07] MEDS: Heparin Sodium,Porcine 5,000 UNIT/ML VIAL 5000 UNIT SUBCUT ×3 (06:30→20:06)
[2024-01-07 07:17] VITALS: BP 148/72; PULSE 73; RESP 14; TEMP 36.2; O2SAT 96
[2024-01-07 07:51] LABS: Glucose, Whole Blood 133 mg/dL (60-115)
[2024-01-07] MEDS: Aspirin Enteric Coated 81 MG TABLET.DR PO (08:23)
[2024-01-07] MEDS: cloZAPine 25 MG TABLET PO (08:23)
[2024-01-07] MEDS: Cholecalciferol (Vitamin D3) 25 MCG TABLET PO (08:23)
[2024-01-07] MEDS: Metoprolol Succinate ER 50 MG TAB.ER.24H PO ×2 (08:23→20:03)
[2024-01-07] MEDS: LORazepam 1 MG TABLET PO ×2 (08:23→20:03)
[2024-01-07] MEDS: Lurasidone HCl 20 MG TABLET 60 MG PO (08:26)
[2024-01-07 11:34] LABS: Glucose, Whole Blood 162 mg/dL (60-115)
[2024-01-07] MEDS: Insulin Lispro 100 UNIT/ML 3 ML VIAL SUBCUT (12:18)
--- NOTE | 2024-01-07 14:43 | MHC.CM.PN ---
EMR REVIEWED AND PER MD ROUNDS, PT WILL BE TRANSFERRED TO PSYCH UNIT ([facility]) TO MANAGE HIS CLOZARIL TAPER. CM MET WITH PT AND HE WAS ABLE TO NAME A HCP. COMPLETED AND ATTACHED TO CHART. [facility] MGR RICHARD IN TO SEE PT. CM WILL CONTINUE TO FOLLOW FOR ANY CHANGE IN DC PLAN/NEEDS.
--- NOTE | 2024-01-07 15:02 | P.PNIM_ITS ---
Subjective Subjective Date of Service: 01/07/24 Interval History: No acute issues overnight. Slowly tolerating advancement of diet Review of Systems Admits to chest pain/midepigastric pain Denies shortness of breath Admits to nausea; no vomiting no diarrhea Physical Exam 2 Vital Signs: Vital Signs: Last Vital Signs Temp 97.2 F 01/07/24 07:17 Pulse 73 01/07/24 07:17 Resp 14 01/07/24 07:17 BP 148/72 H 01/07/24 07:17 Pulse Ox 96 01/07/24 07:17 O2 Del Method Room Air 01/07/24 07:17 O2 Flow Rate 2 01/05/24 03:23 BMI result Body Mass Index 37.1 Const: Other: Awake alert comfortable appearing. States tolerating NG-tube HEENT: Other: NG tube in place Resp: Other: Clear to auscultation bilaterally no rales rhonchi or wheezes Cardio: Other: No S4; positive S1-S2; no S3 murmurs rubs or gallops GI: Other: Distended and soft. Nontender/without peritoneal signs. Quiet bowel sounds Extrem: Other: No edema bilaterally Objective Data Active Medications Acetaminophen (Acetaminophen 325 Mg Tablet) 650 mg PO Q6H PRN PRN Reason: Pain, Mild (Pain Scale 1-3) Last Admin: 01/04/24 20:51 Dose: 650 mg Documented By: MEET Albuterol Sulfate (Albuterol Sulfate 90 Mcg 8 Gm Inhaler) 2 puff INHALE Q6H PRN PRN Reason: Shortness Of Breath Or Wheezing Aspirin (Aspirin Enteric Coated 81 Mg Tablet.) 81 mg PO DAILY@08 [facility] Last Admin: 01/07/24 08:23 Dose: 81 mg Documented By: JENNIFER Atorvastatin Calcium (Atorvastatin Calcium 20 Mg Tablet) 20 mg PO DAILY@1999 [facility] Last Admin: 01/06/24 19:02 Dose: 20 mg Documented By: MARTHA Clozapine (Clozapine 100 Mg Tablet) 200 mg PO DAILY@1999 [facility] Last Admin: 12/31/23 21:44 Dose: 200 mg Documented By: HUYEN Clozapine (Clozapine 25 Mg Tablet) 75 mg PO DAILY@1999 [facility] Last Admin: 12/31/23 21:44 Dose: 75 mg Documented By: HUYEN Clozapine (Clozapine 25 Mg Tablet) 25 mg PO DAILY [facility] Last Admin: 01/07/24 08:23 Dose: 25 mg Documented By: JENNIFER Glucose (Glucose Gel 15 Gm Gel..Gram.) 15 gm PO Q15M PRN; Protocol PRN Reason: per Hypoglycemia Standing Ord. Heparin Sodium (Porcine) (Heparin Sodium,Porcine 5,000 Unit/Ml Vial) 5,000 unit SUBCUT Q8H [facility] Last Admin: 01/07/24 06:30 Dose: 5,000 unit Documented By: REESE Insulin Human Lispro (Insulin Lispro 100 Unit/Ml 3 Ml Vial) 0 unit SUBCUT QIDACHS [facility]; Protocol Last Admin: 01/07/24 12:18 Dose: 2 unit Documented By: JENNIFER Lorazepam (Lorazepam 1 Mg Tablet) 1 mg PO BID [facility] Last Admin: 01/07/24 08:23 Dose: 1 mg Documented By: JENNIFER Lurasidone HCl (Lurasidone Hcl 20 Mg Tablet) 60 mg PO DAILY@0800 [facility] Last Admin: 01/07/24 08:26 Dose: 60 mg Documented By: JENNIFER Metoprolol Succinate (Metoprolol Succinate Er 50 Mg Tab.Er.24h) 50 mg PO BID@0800,2000 [facility]; Protocol Last Admin: 01/07/24 08:23 Dose: 50 mg Documented By: JENNIFER Omeprazole (Omeprazole 20 Mg Capsule.Dr) 20 mg PO BID@0630,1630 [facility] Last Admin: 01/07/24 06:30 Dose: 20 mg Documented By: REESE Ondansetron HCl (Ondansetron Hcl 4 Mg/2 Ml Vial) 4 mg IVPUSH Q4H PRN PRN Reason: Nausea and Vomiting Last Admin: 01/01/24 05:16 Dose: 4 mg Documented By: HUYEN Polyethylene Glycol (Polyethylene Glycol 3350 17 Gm Powd.Pack) 17 gm PO DAILY [facility] Last Admin: 01/07/24 08:24 Dose: Not Given Documented By: JENNIFER Non-Admin Reason: Patient Refused Senna/Docusate Sodium (Sennosides/Docusate Sodium Tablet) 2 tab PO DAILY [facility] Last Admin: 01/07/24 08:24 Dose: Not Given Documented By: JENNIFER Non-Admin Reason: Patient Refused Sodium Chloride (0.9 % Sodium Chloride Flush 3 Ml Syringe) 3 ml IVFLUSH QSHIFT [facility] Last Admin: 01/07/24 07:42 Dose: Not Given Documented By: JENNIFER Non-Admin Reason: No Access Trazodone HCl (Trazodone Hcl 50 Mg Tablet) 50 mg PO DAILY@1999 [facility] Last Admin: 01/06/24 19:02 Dose: 50 mg Documented By: MARTHA Vitamin D (Cholecalciferol (Vitamin D3) 25 Mcg Tablet) 25 mcg PO DAILY@08 [facility] Last Admin: 01/07/24 08:23 Dose: 25 mcg Documented By: JENNIFER Labs 01/03/24 08:55 01/05/24 05:39 Labs: Laboratory Results - last 24 hr 01/06/24 01/06/24 01/07/24 16:16 19:58 07:36 POC Glucose 105 119 H 133 H 01/07/24 11:20 POC Glucose 162 H Assessment and Plan (1) SBO (small bowel obstruction): Status: Acute (2) JUHI (acute kidney injury): Status: Acute (3) Schizoaffective disorder: Status: Acute Plan 58-year-old male resident of local correction presents with intractable nausea and vomiting; JUHI upon arrival. Over the last 24 hours developed worsening abdominal pain; CT scan abdomen and pelvis consistent with likely SBO question secondary to adhesions/Clozaril or combination of two. Seen by surgery; no acute intervention at this time. This afternoon, and G-tube with minimal drainage and patient is noting improvement overall 1. Small bowel obstruction Slowly improving. Continues to tolerate advancement of diet -appreciate surgical input. No acute indications for intervention at this time -advance diet as tolerated 2. JUHI -normalized; responded to volume repletion -follow renals/divalents 3.HTN -acceptable control -continue current therapies; adjust as indicated 4. Diabetes type 2 -acceptable control on current therapies -lispro correctional scale -adjust as indicated 5. Schizoaffective disorder -Clozaril restarted; advance as per psych Patient requires ongoing hospitalization to demonstrate effective oral intake; also for Clozaril adjustment. High-risk for outpatient therapy if this is not completed in-house Quality Stroke Does the patient have a stroke diagnosis?: No VTE Prior VTE?: No VTE Risk Level:: Medical - moderate - high VTE Device Contraindication: Treatment Not Indicated VTE Drug Contraindication: N/A - Med Ordered
[2024-01-07 15:03] VITALS: BP 137/63; PULSE 78; RESP 16; TEMP 36.3; O2SAT 94
[2024-01-07 16:15] LABS: Glucose, Whole Blood 130 mg/dL (60-115)
[2024-01-07 19:09] VITALS: BP 160/80; PULSE 80; RESP 18; TEMP 36.3; O2SAT 96
[2024-01-07 19:53] LABS: Glucose, Whole Blood 150 mg/dL (60-115)
[2024-01-07] MEDS: Atorvastatin Calcium 20 MG TABLET PO (20:03)
[2024-01-07] MEDS: traZODone HCL 50 MG TABLET PO (20:04)
[2024-01-08 03:48] VITALS: BP 142/78; PULSE 75; RESP 18; TEMP 36; O2SAT 96
[2024-01-08] MEDS: Heparin Sodium,Porcine 5,000 UNIT/ML VIAL 5000 UNIT SUBCUT ×3 (05:30→20:49)
[2024-01-08] MEDS: Omeprazole 20 MG CAPSULE.DR PO ×2 (05:31→17:34)
[2024-01-08 06:26] LABS: MANUAL DIFF FLAG NO
[2024-01-08 06:34] LABS: Basophils Percent Auto 0.5 % (0-2); Eosinophils Absolute Auto 0.1 X10*3/uL (0.0-0.4); Eosinophils Percent Auto 0.9 % (0-4); Hematocrit 36.6 % (42.0-52.0); Hemoglobin 11.8 g/dl (14.0-18.0); Imm Gran Abs Auto 0.17 X10*3/uL (0.00-0.03); Imm Gran Pct Auto 2.1 % (0.0-0.4); Lymphocytes Absolute Auto 1.1 X10*3/uL (1.2-4.9); Lymphocytes Percent Auto 13.4 % (20-40); Mean Corpuscular HGB Conc 32.2 g/dl (31.0-36.0); Mean Corpuscular Hemoglobin 27.7 pg (27.0-33.0); Mean Corpuscular Volume 85.9 fL (80.0-98.0); Mean Platelet Volume 12.7 fL (9.4-12.4); Monocytes Absolute Auto 0.9 X10*3/uL (0.1-1.2); Neutrophils Absolute Auto 5.7 x10*3/uL (2.0-8.3); Neutrophils Percent Auto 72.1 % (45-73); Platelet Count 167 X10*3/uL (160-400); Red Blood Count 4.26 X10*6/uL (4.60-5.80); Red Cell Distribution Width 14.7 % (11.0-16.0); White Blood Count 7.9 X10*3/uL (4.8-10.8)
[2024-01-08 06:57] LABS: Alanine Aminotransferase 29 U/L (0-40); Albumin Level 3.3 g/dL (3.5-5.0); Alkaline Phosphatase 57 U/L (39-117); Anion Gap 13 (12-20); Aspartate Amino Transferase 17 U/L (5-37); Bilirubin Total 0.2 mg/dL (0.0-1.0); Blood Urea Nitrogen 16 mg/dL (9-16); Calcium 8.8 mg/dL (8.4-10.2); Carbon Dioxide 24 mmol/L (22-29); Chloride 115 mmol/L (96-108); Estimated Glomerular Filt Rate > 60; Glucose Fasting 144 mg/dL (60-99); Potassium 3.6 mmol/L (3.3-5.1); Sodium 148 mmol/L (135-145); Total Protein 6.1 g/dL (6.5-8.0)
[2024-01-08 07:19] VITALS: BP 163/72; PULSE 70; RESP 14; TEMP 36.6; O2SAT 96
[2024-01-08 07:42] LABS: Glucose, Whole Blood 132 mg/dL (60-115)
[2024-01-08] MEDS: Dextrose 5 % 1,000 ML 125 ML IVCONT ×2 (09:35→17:36)
[2024-01-08] MEDS: Cholecalciferol (Vitamin D3) 25 MCG TABLET PO (09:37)
[2024-01-08] MEDS: LORazepam 1 MG TABLET PO ×2 (09:37→20:49)
[2024-01-08] MEDS: Metoprolol Succinate ER 50 MG TAB.ER.24H PO ×2 (09:37→20:49)
[2024-01-08] MEDS: Lurasidone HCl 20 MG TABLET 60 MG PO (09:37)
[2024-01-08] MEDS: Aspirin Enteric Coated 81 MG TABLET.DR PO (09:38)
[2024-01-08] MEDS: cloZAPine 25 MG TABLET PO ×2 (09:40→11:20)
[2024-01-08 11:36] LABS: Glucose, Whole Blood 182 mg/dL (60-115)
[2024-01-08] MEDS: Insulin Lispro 100 UNIT/ML 3 ML VIAL SUBCUT (12:13)
--- NOTE | 2024-01-08 14:56 | P.PNIM_ITS ---
Subjective Subjective Date of Service: 01/08/24 Interval History: Continues to tolerate diet. Tolerating upgrade of Clozaril without issue Review of Systems Admits to chest pain/midepigastric pain Denies shortness of breath Admits to nausea; no vomiting no diarrhea Physical Exam 2 Vital Signs: Vital Signs: Last Vital Signs Temp 97.8 F 01/08/24 07:19 Pulse 70 01/08/24 07:19 Resp 14 01/08/24 07:19 BP 163/72 H 01/08/24 07:19 Pulse Ox 96 01/08/24 07:19 O2 Del Method Room Air 01/08/24 07:19 O2 Flow Rate 2 01/05/24 03:23 BMI result Body Mass Index 37.1 Const: Other: Awake alert comfortable appearing. States tolerating NG-tube HEENT: Other: NG tube in place Resp: Other: Clear to auscultation bilaterally no rales rhonchi or wheezes Cardio: Other: No S4; positive S1-S2; no S3 murmurs rubs or gallops GI: Other: Distended and soft. Nontender/without peritoneal signs. Quiet bowel sounds Extrem: Other: No edema bilaterally Objective Data Active Medications Acetaminophen (Acetaminophen 325 Mg Tablet) 650 mg PO Q6H PRN PRN Reason: Pain, Mild (Pain Scale 1-3) Last Admin: 01/04/24 20:51 Dose: 650 mg Documented By: MEET Albuterol Sulfate (Albuterol Sulfate 90 Mcg 8 Gm Inhaler) 2 puff INHALE Q6H PRN PRN Reason: Shortness Of Breath Or Wheezing Aspirin (Aspirin Enteric Coated 81 Mg Tablet.) 81 mg PO DAILY@0800 [facility] Last Admin: 01/08/24 09:38 Dose: 81 mg Documented By: JENNIFER Atorvastatin Calcium (Atorvastatin Calcium 20 Mg Tablet) 20 mg PO DAILY@1999 [facility] Last Admin: 01/07/24 20:03 Dose: 20 mg Documented By: GREGOR Clozapine (Clozapine 100 Mg Tablet) 200 mg PO DAILY@1999 [facility] Last Admin: 12/31/23 21:44 Dose: 200 mg Documented By: HUYEN Clozapine (Clozapine 25 Mg Tablet) 75 mg PO DAILY@1999 [facility] Last Admin: 12/31/23 21:44 Dose: 75 mg Documented By: HUYEN Clozapine (Clozapine 25 Mg Tablet) 25 mg PO DAILY [facility] Last Admin: 01/08/24 09:40 Dose: 25 mg Documented By: JENNIFER Glucose (Glucose Gel 15 Gm Gel..Gram.) 15 gm PO Q15M PRN; Protocol PRN Reason: per Hypoglycemia Standing Ord. Heparin Sodium (Porcine) (Heparin Sodium,Porcine 5,000 Unit/Ml Vial) 5,000 unit SUBCUT Q8H [facility] Last Admin: 01/08/24 13:36 Dose: 5,000 unit Documented By: JENNIFER Dextrose (D5w) 1,000 mls @ 125 mls/hr IVCONT .Q8H [facility] Last Admin: 01/08/24 09:35 Dose: 125 mls/hr Documented By: JENNIFER Insulin Human Lispro (Insulin Lispro 100 Unit/Ml 3 Ml Vial) 0 unit SUBCUT QIDACHS [facility]; Protocol Last Admin: 01/08/24 12:13 Dose: 2 unit Documented By: JENNIFER Lorazepam (Lorazepam 1 Mg Tablet) 1 mg PO BID [facility] Last Admin: 01/08/24 09:37 Dose: 1 mg Documented By: JENNIFER Lurasidone HCl (Lurasidone Hcl 20 Mg Tablet) 60 mg PO DAILY@0800 [facility] Last Admin: 01/08/24 09:37 Dose: 60 mg Documented By: JENNIFER Metoprolol Succinate (Metoprolol Succinate Er 50 Mg Tab.Er.24h) 50 mg PO BID@0800,2000 [facility]; Protocol Last Admin: 01/08/24 09:37 Dose: 50 mg Documented By: JENNIFER Omeprazole (Omeprazole 20 Mg Capsule.Dr) 20 mg PO BID@0630,1630 [facility] Last Admin: 01/08/24 05:31 Dose: 20 mg Documented By: GREGOR Ondansetron HCl (Ondansetron Hcl 4 Mg/2 Ml Vial) 4 mg IVPUSH Q4H PRN PRN Reason: Nausea and Vomiting Last Admin: 01/01/24 05:16 Dose: 4 mg Documented By: HUYEN Polyethylene Glycol (Polyethylene Glycol 3350 17 Gm Powd.Pack) 17 gm PO DAILY [facility] Last Admin: 01/08/24 09:38 Dose: Not Given Documented By: JENNIFER Non-Admin Reason: Patient Refused Senna/Docusate Sodium (Sennosides/Docusate Sodium Tablet) 2 tab PO DAILY [facility] Last Admin: 01/08/24 09:38 Dose: Not Given Documented By: JENNIFER Non-Admin Reason: Patient Refused Sodium Chloride (0.9 % Sodium Chloride Flush 3 Ml Syringe) 3 ml IVFLUSH QSHIFT [facility] Last Admin: 01/08/24 09:38 Dose: Not Given Documented By: JENNIFER Non-Admin Reason: No Access Trazodone HCl (Trazodone Hcl 50 Mg Tablet) 50 mg PO DAILY@1999 [facility] Last Admin: 01/07/24 20:04 Dose: 50 mg Documented By: GREGOR Vitamin D (Cholecalciferol (Vitamin D3) 25 Mcg Tablet) 25 mcg PO DAILY@08 [facility] Last Admin: 01/08/24 09:37 Dose: 25 mcg Documented By: JENNIFER Labs 01/08/24 05:30 01/08/24 05:30 Labs: Laboratory Results - last 24 hr 01/07/24 01/07/24 01/08/24 16:08 19:46 05:30 MCV 85.9 MCH 27.7 MCHC 32.2 RDW 14.7 Plt Count 167 MPV 12.7 H Immature Gran % (Auto) 2.1 H Neut % (Auto) 72.1 Lymph % (Auto) 13.4 L [place] % (Auto) 11.0 Eos % (Auto) 0.9 Baso % (Auto) 0.5 Lymph # (Auto) 1.1 L [place] # (Auto) 0.9 Eos # (Auto) 0.1 Baso # (Auto) 0.0 Abs Immat Gran (auto) 0.17 H Absolute Neuts (auto) 5.7 Absolute Nucleated RBC 0.000 Nucleated RBC % (auto) 0.0 Anion Gap 13 Estim Creat Clear Calc 81.0 Estimated GFR > 60 POC Glucose 130 H 150 H Fasting Glucose 144 H Calcium 8.8 Total Bilirubin 0.2 AST 17 ALT 29 Alkaline Phosphatase 57 Total Protein 6.1 L Albumin 3.3 L 01/08/24 01/08/24 07:21 11:33 MCV MCH MCHC RDW Plt Count MPV Immature Gran % (Auto) Neut % (Auto) Lymph % (Auto) [place] % (Auto) Eos % (Auto) Baso % (Auto) Lymph # (Auto) [place] # (Auto) Eos # (Auto) Baso # (Auto) Abs Immat Gran (auto) Absolute Neuts (auto) Absolute Nucleated RBC Nucleated RBC % (auto) Anion Gap Estim Creat Clear Calc Estimated GFR POC Glucose 132 H 182 H Fasting Glucose Calcium Total Bilirubin AST ALT Alkaline Phosphatase Total Protein Albumin Assessment and Plan (1) Hypernatremia: Status: Acute (2) Schizoaffective disorder: Status: Acute Plan 58-year-old male resident of local assisted presents with intractable nausea and vomiting; JUHI upon arrival. Over the last 24 hours developed worsening abdominal pain; CT scan abdomen and pelvis consistent with likely SBO question secondary to adhesions/Clozaril or combination of two. Seen by surgery; no acute intervention at this time. This afternoon, and G-tube with minimal drainage and patient is noting improvement overall 1. Hypernatremia -calculated free water deficit 3.3 L -D5W at 150 an hour -follow renals/divalents 2. Small bowel obstruction Slowly improving. Continues to tolerate advancement of diet -appreciate surgical input. No acute indications for intervention at this time -advance diet as tolerated 3. JUHI -normalized; responded to volume repletion -follow renals/divalents 4.HTN -acceptable control -continue current therapies; adjust as indicated 5. Diabetes type 2 -acceptable control on current therapies -lispro correctional scale -adjust as indicated 6. Schizoaffective disorder -Clozaril restarted; advanced 25 mg each day as per psych Patient requires ongoing hospitalization to demonstrate effective oral intake; also for Clozaril adjustment. High-risk for outpatient therapy if this is not completed in-house Quality Stroke Does the patient have a stroke diagnosis?: No VTE Prior VTE?: No VTE Risk Level:: Medical - moderate - high VTE Device Contraindication: Treatment Not Indicated VTE Drug Contraindication: N/A - Med Ordered
[2024-01-08 15:09] VITALS: BP 139/80; PULSE 69; RESP 16; TEMP 36.6; O2SAT 96
[2024-01-08 16:22] LABS: Glucose, Whole Blood 104 mg/dL (60-115)
[2024-01-08 19:17] VITALS: BP 140/83; PULSE 77; RESP 17; TEMP 36.2; O2SAT 96
[2024-01-08 19:52] LABS: Glucose, Whole Blood 125 mg/dL (60-115)
[2024-01-08] MEDS: Atorvastatin Calcium 20 MG TABLET PO (20:49)
[2024-01-08] MEDS: traZODone HCL 50 MG TABLET PO (20:49)
[2024-01-09] MEDS: Dextrose 5 % 1,000 ML 125 ML IVCONT (00:59)
[2024-01-09 03:15] VITALS: BP 128/76; PULSE 74; RESP 18; TEMP 36.2; O2SAT 96
[2024-01-09] MEDS: Omeprazole 20 MG CAPSULE.DR PO (05:48)
[2024-01-09] MEDS: Heparin Sodium,Porcine 5,000 UNIT/ML VIAL 5000 UNIT SUBCUT (05:48)
--- NOTE | 2024-01-09 05:59 | HO.SKINPHOTO ---
Location: left buttock Category: Stage: Length: Width: Depth: cm Location: Category: Stage: Length: Width: Depth: cm Location: Category: Stage: Length: Width: Depth: cm Location: Category: Stage: Length: Width: Depth: cm Location: Category: Stage: Length: Width: Depth: cm Location: Category: Stage: Length: Width: Depth: cm
[2024-01-09 07:03] LABS: MANUAL DIFF FLAG NO
[2024-01-09 07:05] LABS: Basophils Percent Auto 0.5 % (0-2); Eosinophils Absolute Auto 0.1 X10*3/uL (0.0-0.4); Eosinophils Percent Auto 1.3 % (0-4); Hematocrit 36.4 % (42.0-52.0); Hemoglobin 11.7 g/dl (14.0-18.0); Imm Gran Abs Auto 0.11 X10*3/uL (0.00-0.03); Imm Gran Pct Auto 1.4 % (0.0-0.4); Lymphocytes Absolute Auto 1.1 X10*3/uL (1.2-4.9); Lymphocytes Percent Auto 14.8 % (20-40); Mean Corpuscular HGB Conc 32.1 g/dl (31.0-36.0); Mean Corpuscular Hemoglobin 27.7 pg (27.0-33.0); Mean Corpuscular Volume 86.1 fL (80.0-98.0); Mean Platelet Volume 12.8 fL (9.4-12.4); Monocytes Absolute Auto 0.8 X10*3/uL (0.1-1.2); Monocytes Percent Auto 10.4 % (2-11); Neutrophils Absolute Auto 5.5 x10*3/uL (2.0-8.3); Neutrophils Percent Auto 71.6 % (45-73); Platelet Count 145 X10*3/uL (160-400); Red Blood Count 4.23 X10*6/uL (4.60-5.80); Red Cell Distribution Width 14.9 % (11.0-16.0); White Blood Count 7.7 X10*3/uL (4.8-10.8)
[2024-01-09 07:23] VITALS: BP 134/76; PULSE 83; RESP 16; TEMP 36; O2SAT 96
[2024-01-09 07:40] LABS: Alanine Aminotransferase 30 U/L (0-40); Albumin Level 3.2 g/dL (3.5-5.0); Alkaline Phosphatase 55 U/L (39-117); Anion Gap 14 (12-20); Aspartate Amino Transferase 21 U/L (5-37); Bilirubin Total 0.2 mg/dL (0.0-1.0); Blood Urea Nitrogen 13 mg/dL (9-16); Calcium 8.5 mg/dL (8.4-10.2); Carbon Dioxide 22 mmol/L (22-29); Chloride 111 mmol/L (96-108); Creatinine Clr Calc Pharmacy 80.3; Estimated Glomerular Filt Rate > 60; Glucose Fasting 136 mg/dL (60-99); Potassium 3.5 mmol/L (3.3-5.1); Sodium 143 mmol/L (135-145)
[2024-01-09 07:44] LABS: Glucose, Whole Blood 137 mg/dL (60-115)
[2024-01-09] MEDS: Lurasidone HCl 20 MG TABLET 60 MG PO (09:02)
[2024-01-09] MEDS: Sennosides/Docusate Sodium TABLET 2 TAB PO (09:03)
[2024-01-09] MEDS: LORazepam 1 MG TABLET PO (09:03)
[2024-01-09] MEDS: cloZAPine 25 MG TABLET 75 MG PO (09:03)
[2024-01-09] MEDS: Metoprolol Succinate ER 50 MG TAB.ER.24H PO (09:04)
[2024-01-09] MEDS: Aspirin Enteric Coated 81 MG TABLET.DR PO (09:04)
[2024-01-09] MEDS: Cholecalciferol (Vitamin D3) 25 MCG TABLET PO (09:05)
[2024-01-09 11:42] LABS: Glucose, Whole Blood 145 mg/dL (60-115)
--- NOTE | 2024-01-09 12:08 | PM.DS ---
DS: Providers Provider Date of Service: 01/09/24 Date of admission: 12/31/23 00:37 Date of discharge: 01/09/24 Primary care physician: Regan Hogue MD Consults: 01/01/24 05:57 Consult to General Surgery Stat Consulting Provider: [facility] [place] General Surgeons Reason for consultation: SBO with ?small bowel ischemia 01/02/24 11:41 Consult to Psychiatry Routine Consulting Provider: Psych Covering Reason for consultation: SBO possibly due to clozapein 01/09/24 06:05 Consult to Wound Care Routine Reason for consultation: small open area on left buttock. 01/09/24 08:49 Consult to Care Team Stat Comment: Reason for consultation: Return to to psych for Clozaril dosing. Spoke with Dr Garcia DS: Diagnosis Discharge Diagnosis (1) Hypernatremia: Status: Acute (2) Schizoaffective disorder: Status: Acute DS: Summary Hospital Course Hospital Course: 58 years old man with past medical history significant for type 2 diabetes mellitus, essential hypertension, HOCM, hyperlipidemia, COPD, obstructive sleep apnea, constipation and schizoaffective disorder was brought to the emergency department complaining of diarrhea after receiving multiple doses of senna for constipation. He had an episode of vomiting and complained of generalized abdominal discomfort. He took Imodium. Denies headache, chest pain or shortness on breath. Patient told me he thinks his retaining urine. In the ED, he was found to have stable vital signs. Blood workup showed normal WBC count, platelets and hemoglobin. Sodium is slightly elevated 146. Initial creatinine was 3.07 and decreased to 2.26 in fact hours. Urinalysis normal. Hospital [facility]Ourse Patient was aggressively volume repleted for his acute kidney injury which did respond over his hospitalization. He continued to have diarrhea and on evening of 01/01/2024 developed acute vomiting with abdominal distention. CT scan was done and a question of partial small-bowel obstruction. Patient was seen in surgical consultation however it was felt that there was no surgery needed. On review of meds it was thought that this partial bowel obstruction was/could be related to Clozaril. Patient's Clozaril was held and he was changed to NPO. Over the course next 24 hours his diet was able to be advanced in over the next several days he was tolerating a regular diet with normal bowel movements. Surgery has signed off the case. At this point in time he is voicing thoughts of suicide without a plan; discussed with Dr. Kerr and patient will be admitted to Psychiatry for up taper of his Clozaril and safe environment. At this point in time he is medically acceptable for transfer. This has been discussed in detail with Dr Garcia Time Attestation Discharge Coordination Time (in mins): 45 Quality: Safe Use of Opioids Does Pt have an Active Cancer Diagnosis on the Problem List?: No Quality: Stroke Does the patient have a stroke diagnosis?: No Physical Exam Vital Signs: Vital Signs: Last Vital Signs Temp 96.8 F 01/09/24 07:23 Pulse 83 01/09/24 07:23 Resp 16 01/09/24 07:23 BP 134/76 01/09/24 07:23 Pulse Ox 96 01/09/24 07:23 O2 Del Method Room Air 01/09/24 07:23 O2 Flow Rate 2 01/05/24 03:23 BMI result Body Mass Index 37.1 Const: Other: Awake alert comfortable appearing. States tolerating NG-tube HEENT: Other: NG tube in place Resp: Other: Clear to auscultation bilaterally no rales rhonchi or wheezes Cardio: Other: No S4; positive S1-S2; no S3 murmurs rubs or gallops GI: Other: Soft..... Nontender/without peritoneal signs. Quiet bowel sounds Extrem: Other: No edema bilaterally DS: Data Data Completed and Pending Completed studies during hospitalization [Text1]: Procedures Assistance with Respiratory Ventilation, Less than 24 Consecutive Hours, Continuous Positive Airway Pressure (11/03/23) Introduction of Remdesivir Anti-infective into Peripheral Vein, Percutaneous Approach, [employer] (09/25/21) Labs on day of discharge: Laboratory Results - last 24 hr 01/08/24 01/08/24 01/09/24 16:19 19:19 05:37 WBC 7.7 RBC 4.23 L Hgb 11.7 L Hct 36.4 L MCV 86.1 MCH 27.7 MCHC 32.1 RDW 14.9 Plt Count 145 L MPV 12.8 H Immature Gran % (Auto) 1.4 H Neut % (Auto) 71.6 Lymph % (Auto) 14.8 L [place] % (Auto) 10.4 Eos % (Auto) 1.3 Baso % (Auto) 0.5 Lymph # (Auto) 1.1 L [place] # (Auto) 0.8 Eos # (Auto) 0.1 Baso # (Auto) 0.0 Abs Immat Gran (auto) 0.11 H Absolute Neuts (auto) 5.5 Absolute Nucleated RBC 0.000 Nucleated RBC % (auto) 0.0 Sodium 143 Potassium 3.5 Chloride 111 H Carbon Dioxide 22 Anion Gap 14 BUN 13 Creatinine 1.12 Estim Creat Clear Calc 80.3 Estimated GFR > 60 POC Glucose 104 125 H Fasting Glucose 136 H Calcium 8.5 Total Bilirubin 0.2 AST 21 ALT 30 Alkaline Phosphatase 55 Total Protein 6.0 L Albumin 3.2 L 01/09/24 01/09/24 07:28 11:27 WBC RBC Hgb Hct MCV MCH MCHC RDW Plt Count MPV Immature Gran % (Auto) Neut % (Auto) Lymph % (Auto) [place] % (Auto) Eos % (Auto) Baso % (Auto) Lymph # (Auto) [place] # (Auto) Eos # (Auto) Baso # (Auto) Abs Immat Gran (auto) Absolute Neuts (auto) Absolute Nucleated RBC Nucleated RBC % (auto) Sodium Potassium Chloride Carbon Dioxide Anion Gap BUN Creatinine Estim Creat Clear Calc Estimated GFR POC Glucose 137 H 145 H Fasting Glucose Calcium Total Bilirubin AST ALT Alkaline Phosphatase Total Protein Albumin Discharge Plan Discharge Anticipated Discharge Date/Time: 01/09/24 11:58 Patient Disposition: Xfer Psychiatric Hosp Discharge Diagnosis: Partial small-bowel obstruction Referrals: Regan Hogue MD [Primary Care Provider] - 1 Week Discharge Medications: New sennosides-docusate sodium [Senna Plus] 8.6-50 mg Tablet 2 tab PO DAILY Qty: 60 0RF omeprazole 20 mg Capsule,Delayed Release(Dr/Ec) 20 mg PO BID@0630,1630 Qty: 30 0RF lorazepam 1 mg Tablet 1 mg PO BID Qty: 60 0RF insulin lispro [Admelog U-100 Insulin lispro] 100 unit/mL Solution See Protocol subcut QIDACHS Qty: 10 0RF Protocol: Insulin Correction Scale Less than or equal to 110 ---- Give (units): 0 111 to 150 Give (units): 0 151 to 200 Give (units): 2 201 to 250 Give (units): 4 251 to 300 Give (units): 6 301 to 350 Give (units): 8 Greater than 350 Give (units): 10 Call MD if Blood Glucose > : 350 cholecalciferol (vitamin D3) 25 mcg (1,000 unit) Tablet 25 mcg PO DAILY@0800 30 Days Qty: 30 0RF clozapine [Clozaril] 50 mg tablet 75 mg PO DAILY Qty: 30 0RF Continued docusate sodium 100 mg capsule 1 cap PO BID@0800,1999 atorvastatin 20 mg tablet 20 mg PO DAILY@1999 lorazepam 1 mg tablet 1 mg PO BID@0800,1600 lorazepam 0.5 mg Tablet 0.5 mg PO DAILY@1999 losartan 25 mg tablet 25 mg PO DAILY@0800 trazodone 50 mg tablet 50 mg PO DAILY@1999 lurasidone 60 mg tablet 60 mg PO DAILY@0800 Tradjenta 5 mg tablet 5 mg PO DAILY@0800 alfuzosin 10 mg tablet extended release 24 hr 10 mg PO DAILY@1999 Rx Instructions: Take before bedtime metoprolol succinate 50 mg tablet extended release 24 hr 50 mg PO BID@0800,1999 furosemide 20 mg tablet 20 mg PO DAILY@0800 Protocol: Hold for SBP< HOLD for SBP < : 90 alum-mag hydroxide-simeth 200-200-20 mg/5 mL Suspension 10 ml PO TID PRN (Reason: Indigestion) Rx Instructions: administer between meals and at bedtime polyethylene glycol 3350 [Miralax] 17 gram/dose Powder 17 g PO DAILY PRN (Reason: Constipation) testosterone [AndroGel] 1.62 % (20.25 mg/1.25 gram) gel in packet 2 packet TRANSDERMAL DAILY Rx Instructions: apply 20.25 mg /1 packet to max area of EACH upper arm and shoulder albuterol sulfate 90 mcg/actuation HFA aerosol inhaler 2 puff inhalation Q6H PRN (Reason: Shortness Of Breath Or Wheezing) aspirin 81 mg Tablet,Delayed Release (Dr/Ec) 81 mg PO DAILY@0800 Discontinued clozapine 100 mg tablet 200 mg PO DAILY@1999 clozapine 25 mg tablet 75 mg PO DAILY@1999 cholecalciferol (vitamin D3) 25 mcg (1,000 unit) tablet 25 mcg PO DAILY@0800 Discharge Orders: Discharge Order (Routine); Ordered 01/09/24 Ordered By: Rob Moseley Diet: Advance to usual diet Activity on Discharge: As tolerated Stand Alone Forms: Patient Portal Discharge page
[2024-01-09 12:41] LABS: COVID-19 Test Negative (Negative); IDNOW Serial# 08D9AD1C
--- NOTE | 2024-01-09 12:55 | MHC.CM.PN ---
EMR REVIEWED. PT WILL BE MOVED TODAY TO M5 FOR CLOZARIL TAPER.
== END 2024-01-09 13:15 | DRG 389 ==
LOC: HO.ED 23:27 → HO.EDOVER 12-31 00:44 → HO.S3 12-31 02:03
PROVIDERS: Family Medicine; Physician Assistant; Student in an Organized Health Care Education/Training Program; Admitting Provider Internal Medicine; Emergency Provider Emergency Medicine; PCP Internal Medicine; Visit Provider Hospitalist
DX: K56.51 Intestinal adhesions [bands], with partial obstruction (principal); E87.0 Hyperosmolality and hypernatremia; N17.9 Acute kidney failure, unspecified; I42.1 Obstructive hypertrophic cardiomyopathy; I50.32 Chronic diastolic (congestive) heart failure; R45.851 Suicidal ideations; E86.0 Dehydration; I25.118 Atherosclerotic heart disease of native coronary artery with other forms of angina pectoris; J44.9 Chronic obstructive pulmonary disease, unspecified; T42.4X5A Adverse effect of benzodiazepines, initial encounter; E87.6 Hypokalemia; N40.1 Benign prostatic hyperplasia with lower urinary tract symptoms; E11.9 Type 2 diabetes mellitus without complications; R33.8 Other retention of urine; G47.33 Obstructive sleep apnea (adult) (pediatric); R35.0 Frequency of micturition; F25.9 Schizoaffective disorder, unspecified; F17.210 Nicotine dependence, cigarettes, uncomplicated; Z20.822 Contact with and (suspected) exposure to COVID-19; Z91.199 Patient's noncompliance with other medical treatment and regimen due to unspecified reason; Z79.4 Long term (current) use of insulin; Z79.82 Long term (current) use of aspirin; Z79.899 Other long term (current) 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
CPT/HCPCS: 36415; 71045; 74018; 74176; 80048; 80053; 80076; 81003; 82947; 83605; 83690; 83735; 84484; 85025; 87635; 92950; 93005; 97116; 97163; 99212; 99285; C1758; C9113; J0737; J1644; J2060; J2270; J2405; J2543; J7120; S9485

== ENCOUNTER → 2023-12-30 16:22 | Outpatient (BNV) | payer OTHER, SELFPAY | PROVIDERS: Admitting Provider Internal Medicine; Emergency Provider Emergency Medicine; PCP Internal Medicine; Visit Provider Internal Medicine Cardiovascular Disease | DX: I45.81 Long QT syndrome (principal); R07.9 Chest pain, unspecified | CPT/HCPCS: 93010 ==

== ENCOUNTER 2023-12-31 00:37 | Outpatient (BNV) | payer OTHER, SELFPAY | END 2023-12-31 18:37 | PROVIDERS: Admitting Provider Internal Medicine; Emergency Provider Emergency Medicine; PCP Internal Medicine; Visit Provider Internal Medicine Cardiovascular Disease | DX: I45.81 Long QT syndrome (principal); R07.9 Chest pain, unspecified | CPT/HCPCS: 93010 ==

== ENCOUNTER → 2023-12-31 00:37 | Outpatient (BNV) | payer OTHER, SELFPAY | PROVIDERS: Admitting Provider Internal Medicine; Emergency Provider Emergency Medicine; PCP Internal Medicine; Visit Provider Internal Medicine | DX: E87.0 Hyperosmolality and hypernatremia (principal); F25.0 Schizoaffective disorder, bipolar type | CPT/HCPCS: 99223; 99232; 99233; 99239; 99499 ==

== ENCOUNTER → 2023-12-31 00:37 | Outpatient (BNV) | payer OTHER, SELFPAY | PROVIDERS: Admitting Provider Internal Medicine; Emergency Provider Emergency Medicine; PCP Internal Medicine; Visit Provider Physician Assistant Surgical | DX: K56.7 Ileus, unspecified (principal) | CPT/HCPCS: 99222; 99232 ==

== ENCOUNTER → 2023-12-31 00:37 | Outpatient (BNV) | payer OTHER, SELFPAY | PROVIDERS: Admitting Provider Internal Medicine; Emergency Provider Emergency Medicine; PCP Internal Medicine; Visit Provider Psychiatry & Neurology Psychiatry | DX: F25.0 Schizoaffective disorder, bipolar type (principal); K56.609 Unspecified intestinal obstruction, unspecified as to partial versus complete obstruction; E11.9 Type 2 diabetes mellitus without complications; N40.1 Benign prostatic hyperplasia with lower urinary tract symptoms; R35.0 Frequency of micturition; G47.33 Obstructive sleep apnea (adult) (pediatric); I10 Essential (primary) hypertension | CPT/HCPCS: 99222; 99232 ==

== ENCOUNTER 2024-01-09 12:31 | Inpatient (IN) | payer OTHER, SELFPAY ==
--- NOTE | ~2024-01-09 | XR_ITS ---
EXAMINATION: XR CHEST XR KUB CLINICAL INFORMATION: Altered mental status. Prior small bowel obstruction. COMPARISON: KUB from 01/06/2024. CXR from 12/31/2023. TECHNIQUE: Chest radiograph, AP view Abdomen, AP view FINDINGS: CHEST: EKG wires overlie the chest. Lungs are mildly hypoinflated and without evidence of acute disease. No pulmonary consolidation, pleural effusion or pneumothorax. Cardiomediastinal silhouette has stable size and contour. The visualized bones are intact. ABDOMEN: Stomach is unremarkable. There is an increased amount of gas within loops of bowel compared to 01/06/2024. There is gas within the nondilated colon and rectum. No evidence of pneumatosis intestinalis or pneumoperitoneum. No urinary tract calculi. The visualized bones of the lumbar spine and pelvis are intact. Mild osteoarthrosis of the hips. There is a bone island of the proximal right femur. XR/XR KUB IMPRESSION: * No evidence of pneumonia. No acute pulmonary disease compared to 12/31/2023. * Abnormal but nonspecific bowel gas pattern. There appears to be an increased amount of gas within the bowel loops. Findings could represent mild ileus or partial small bowel obstruction.
--- NOTE | ~2024-01-09 | XR_ITS ---
EXAMINATION: XR CHEST XR KUB CLINICAL INFORMATION: Altered mental status. Prior small bowel obstruction. COMPARISON: KUB from 01/06/2024. CXR from 12/31/2023. TECHNIQUE: Chest radiograph, AP view Abdomen, AP view FINDINGS: CHEST: EKG wires overlie the chest. Lungs are mildly hypoinflated and without evidence of acute disease. No pulmonary consolidation, pleural effusion or pneumothorax. Cardiomediastinal silhouette has stable size and contour. The visualized bones are intact. ABDOMEN: Stomach is unremarkable. There is an increased amount of gas within loops of bowel compared to 01/06/2024. There is gas within the nondilated colon and rectum. No evidence of pneumatosis intestinalis or pneumoperitoneum. No urinary tract calculi. The visualized bones of the lumbar spine and pelvis are intact. Mild osteoarthrosis of the hips. There is a bone island of the proximal right femur. XR/XR chest 1V IMPRESSION: * No evidence of pneumonia. No acute pulmonary disease compared to 12/31/2023. * Abnormal but nonspecific bowel gas pattern. There appears to be an increased amount of gas within the bowel loops. Findings could represent mild ileus or partial small bowel obstruction.
[2024-01-09 13:37] VITALS: BP 127/75; PULSE 90; RESP 18; TEMP 36.6; O2SAT 96
[2024-01-09] MEDS: traZODone HCL 50 MG TABLET PO (19:46)
[2024-01-09] MEDS: Atorvastatin Calcium 20 MG TABLET PO (19:46)
[2024-01-09] MEDS: Docusate Sodium 100 MG CAPSULE PO (19:46)
[2024-01-09] MEDS: LORazepam 1 MG TABLET PO (19:47)
[2024-01-09] MEDS: LORazepam 0.5 MG TABLET PO (19:47)
[2024-01-09 20:00] VITALS: BP 126/61; PULSE 81; TEMP 2.7; TEMP 36.8
[2024-01-09] MEDS: Metoprolol Succinate ER 50 MG TAB.ER.24H PO (20:02)
[2024-01-09 20:03] LABS: Glucose, Whole Blood 165 mg/dL (60-115)
--- NOTE | 2024-01-09 22:46 | PC.ADMIT ---
A white, , Khmer-speaking male, aged 58 years, was [facility] to [facility] at 13:30 following a referral from [facility] med floor and CARE team. Pt is known to [facility] and has a number of admissions here. Pt came to from room 368 where he was admitted on 12/30/24 for small bowel obstruction. During admission assessment pt said he had a bowel movement earlier today. CARE team consult was ordered after pt made suicidal statements on med floor. During CARE team assessment pt said I wish my life would come to an end. I cannot take care of myself. I wish I would just . Pt's meds were recently changed. Pt appeared depressed and shut down during 1:1. Pt avoided eye contact and lay in bed turned away from this senior writer. Pt is restless changing position often. Pt appears anxious but was unable to rate. Pt was unable to rate depression, but said was pretty high . Pt reports passive SI, saying he doesn't want to live anymore. I don't want to be here saying he would like to leave and return to his apartment. Pt said I went through hell for the last 10 days. Pt denies pain at this time and reports sleeping well. Pt reported being depressed prior to hospitalization, but says has been worse during his hospitalization. Pt reports feeling alone in the community. Pt has an apartment in [place], but reported feeling isolated there. Housing is stable. Pt took HS meds and ate dinner. Pt appears to be sleeping at this time. Pt had limited participation during admission. Medical issues include: BPH, cardiac arrhythmia, CHF, myocardial infarction, COPD, CAD, diabetes mellitus type 2, essential hypertension, nocturnal hypoxemia, obesity, JUDY, prolonged QT interval, constipation, history of intestinal surgery at age years, history of ankle surgery, and history of TURP. Pt has providers and care coordinated through [facility]. Pt does not have a therapist and indicated he would not like to be referred to a provider. Pt says he want to return to his apartment. Skin check done upon arrival. Pt declined tox screen and it is unknown if ETOH or substance use is involved. Pt reports is a smoker of about 1/2 pack of cigarettes daily, but has not smoked in about two weeks. Pt declined nicotine replacement therapy. Pt reports he received the flu shot this year already. Ecyns-yp-Waece done, admission orders obtained. Initial treatment plan done, but needs to still be signed. Pt still needs to complete safety tool and sign. Pt is resting in room on 15 minute safety checks at this time.
[2024-01-10] MEDS: Omeprazole 20 MG CAPSULE.DR PO ×2 (06:34→20:38)
[2024-01-10 07:58] LABS: Glucose, Whole Blood 122 mg/dL (60-115)
[2024-01-10] MEDS: Lurasidone HCl 20 MG TABLET 60 MG PO (08:26)
[2024-01-10] MEDS: Furosemide 20 MG TABLET PO (08:27)
[2024-01-10] MEDS: LORazepam 1 MG TABLET PO ×2 (08:27→20:40)
[2024-01-10] MEDS: cloZAPine 100 MG TABLET PO (08:27)
[2024-01-10] MEDS: Metoprolol Succinate ER 50 MG TAB.ER.24H PO ×2 (08:27→20:39)
[2024-01-10] MEDS: Sennosides/Docusate Sodium TABLET 2 TAB PO (08:27)
[2024-01-10] MEDS: Docusate Sodium 100 MG CAPSULE PO ×2 (08:27→20:38)
[2024-01-10] MEDS: Losartan Potassium 25 MG TABLET PO (08:27)
[2024-01-10] MEDS: Cholecalciferol (Vitamin D3) 25 MCG TABLET PO (08:27)
[2024-01-10] MEDS: Aspirin Enteric Coated 81 MG TABLET.DR PO (08:27)
[2024-01-10 08:31] VITALS: BP 183/88; PULSE 74; RESP 18; TEMP 36.5; O2SAT 97
[2024-01-10 09:38] LABS: MANUAL DIFF FLAG NO
[2024-01-10 09:41] LABS: Basophils Percent Auto 0.4 % (0-2); Eosinophils Absolute Auto 0.1 X10*3/uL (0.0-0.4); Eosinophils Percent Auto 0.9 % (0-4); Hematocrit 37.9 % (42.0-52.0); Hemoglobin 12.3 g/dl (14.0-18.0); Imm Gran Abs Auto 0.11 X10*3/uL (0.00-0.03); Imm Gran Pct Auto 1.1 % (0.0-0.4); Lymphocytes Absolute Auto 1.3 X10*3/uL (1.2-4.9); Lymphocytes Percent Auto 12.1 % (20-40); Mean Corpuscular HGB Conc 32.5 g/dl (31.0-36.0); Mean Corpuscular Hemoglobin 27.3 pg (27.0-33.0); Mean Platelet Volume 12.5 fL (9.4-12.4); Monocytes Absolute Auto 0.8 X10*3/uL (0.1-1.2); Monocytes Percent Auto 7.2 % (2-11); Neutrophils Absolute Auto 8.2 x10*3/uL (2.0-8.3); Neutrophils Percent Auto 78.3 % (45-73); Platelet Count 155 X10*3/uL (160-400); Red Blood Count 4.51 X10*6/uL (4.60-5.80); Red Cell Distribution Width 14.8 % (11.0-16.0); White Blood Count 10.5 X10*3/uL (4.8-10.8)
[2024-01-10 09:59] LABS: Estimated Average Glucose 131 mg/dL; Hemoglobin A1c % 6.2 % (<6.0)
[2024-01-10 10:06] LABS: Alanine Aminotransferase 27 U/L (0-40); Albumin Level 3.6 g/dL (3.5-5.0); Alkaline Phosphatase 58 U/L (39-117); Anion Gap 13 (12-20); Aspartate Amino Transferase 18 U/L (5-37); Bilirubin Total 0.3 mg/dL (0.0-1.0); Blood Urea Nitrogen 13 mg/dL (9-16); Calcium 8.9 mg/dL (8.4-10.2); Carbon Dioxide 23 mmol/L (22-29); Chloride 116 mmol/L (96-108); Cholesterol 131 mg/dL (<200); Estimated Glomerular Filt Rate > 60; Glucose Fasting 128 mg/dL (60-99); HDL Cholesterol 23 mg/dL (>40); LDL Cholesterol Calculated 73 mg/dL (<100); Potassium 3.6 mmol/L (3.3-5.1); Sodium 148 mmol/L (135-145); Total Protein 6.5 g/dL (6.5-8.0); Triglycerides 178 mg/dL (<150)
[2024-01-10 12:22] LABS: Glucose, Whole Blood 118 mg/dL (60-115)
[2024-01-10 17:37] LABS: Glucose, Whole Blood 130 mg/dL (60-115)
[2024-01-10 18:00] VITALS: BP 128/83; PULSE 83; TEMP 36.4; O2SAT 90
[2024-01-10 20:35] VITALS: BP 128/76; PULSE 89; TEMP 36.6
[2024-01-10] MEDS: Atorvastatin Calcium 20 MG TABLET PO (20:37)
[2024-01-10] MEDS: LORazepam 0.5 MG TABLET PO (20:37)
[2024-01-10] MEDS: traZODone HCL 50 MG TABLET PO (20:39)
[2024-01-10 21:01] LABS: Glucose, Whole Blood 169 mg/dL (60-115)
[2024-01-10] MEDS: Insulin Lispro 100 UNIT/ML 3 ML VIAL SUBCUT (21:27)
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
[2024-01-11] MEDS: Omeprazole 20 MG CAPSULE.DR PO ×2 (05:30→18:00)
[2024-01-11 08:00] VITALS: BP 166/81; PULSE 80; RESP 18; TEMP 36.6; O2SAT 95
[2024-01-11 08:15] LABS: Glucose, Whole Blood 125 mg/dL (60-115)
[2024-01-11] MEDS: Metoprolol Succinate ER 50 MG TAB.ER.24H PO ×2 (08:38→21:14)
[2024-01-11] MEDS: Furosemide 20 MG TABLET PO (08:39)
[2024-01-11] MEDS: Aspirin Enteric Coated 81 MG TABLET.DR PO (08:39)
[2024-01-11] MEDS: cloZAPine 25 MG TABLET 125 MG PO (08:39)
[2024-01-11] MEDS: Sennosides/Docusate Sodium TABLET 2 TAB PO (08:39)
[2024-01-11] MEDS: Lurasidone HCl 20 MG TABLET 60 MG PO (08:39)
[2024-01-11] MEDS: Losartan Potassium 25 MG TABLET PO (08:39)
[2024-01-11] MEDS: Cholecalciferol (Vitamin D3) 25 MCG TABLET PO (08:39)
[2024-01-11] MEDS: LORazepam 1 MG TABLET PO ×2 (08:40→21:14)
[2024-01-11] MEDS: Docusate Sodium 100 MG CAPSULE PO ×2 (08:40→21:13)
[2024-01-11 12:48] LABS: Glucose, Whole Blood 130 mg/dL (60-115)
[2024-01-11 17:39] LABS: Glucose, Whole Blood 138 mg/dL (60-115)
--- NOTE | 2024-01-11 17:59 | P.PNPSI_ITS ---
Subjective Subjective Date of Service: 01/11/24 Reason For Visit: SI; decompensation Interim History: Met with patient; discussed with team Patient remains isolative and in bed. Patient remains sad; writer producer discussed behavioral activation and getting out of bed and patient said I do not want to and would not engage much further. Mental Status Exam Mental Status Exam Narrative: Pt is alert and oriented; behavior is quiet, lying in bed, patient is not in distress; dressed in hospital attire with unkempt hair, disheveled; mood is described as sad and affect congruent, downcast; eye contact avoidant; Speech is quiet, sparse; not pressured; significant psychomotor retardation present; thought process is goal directed; Thought content is on hopeless feelings; no delusional content expressed; passive SI; no HI. seems internally preoccupied Patients insight and judgment impaired. Diagnostics Vital Signs (24Hr): Vital Signs - 24 hr 01/10/24 18:00 01/10/24 20:35 01/11/24 08:00 Temperature 97.5 F 97.9 F 97.9 F Pulse Rate 83 89 80 Respiratory Rate 18 Blood Pressure 128/83 128/76 166/81 H Pulse Oximetry 90 L 95 Oxygen Delivery Method Room Air Room Air Labs 01/10/24 09:17 01/10/24 09:17 Labs: Laboratory Results - last 48 hr 01/09/24 01/10/24 01/10/24 19:57 07:53 09:17 WBC 10.5 RBC 4.51 L Hgb 12.3 L Hct 37.9 L MCV 84.0 MCH 27.3 MCHC 32.5 RDW 14.8 Plt Count 155 L MPV 12.5 H Immature Gran % (Auto) 1.1 H Neut % (Auto) 78.3 H Lymph % (Auto) 12.1 L [place] % (Auto) 7.2 Eos % (Auto) 0.9 Baso % (Auto) 0.4 Lymph # (Auto) 1.3 [place] # (Auto) 0.8 Eos # (Auto) 0.1 Baso # (Auto) 0.0 Abs Immat Gran (auto) 0.11 H Absolute Neuts (auto) 8.2 Absolute Nucleated RBC 0.000 Nucleated RBC % (auto) 0.0 Sodium 148 H Potassium 3.6 Chloride 116 H Carbon Dioxide 23 Anion Gap 13 BUN 13 Creatinine 1.11 Estim Creat Clear Calc TNP Estimated GFR > 60 POC Glucose 165 H 122 H Fasting Glucose 128 H Estimat Average Glucose 131 Hemoglobin A1c % 6.2 H Calcium 8.9 Total Bilirubin 0.3 AST 18 ALT 27 Alkaline Phosphatase 58 Total Protein 6.5 Albumin 3.6 Triglycerides 178 H Cholesterol 131 LDL Cholesterol, Calc 73 HDL Cholesterol 23 L 01/10/24 01/10/24 01/10/24 12:10 17:27 20:55 WBC RBC Hgb Hct MCV MCH MCHC RDW Plt Count MPV Immature Gran % (Auto) Neut % (Auto) Lymph % (Auto) [place] % (Auto) Eos % (Auto) Baso % (Auto) Lymph # (Auto) [place] # (Auto) Eos # (Auto) Baso # (Auto) Abs Immat Gran (auto) Absolute Neuts (auto) Absolute Nucleated RBC Nucleated RBC % (auto) Sodium Potassium Chloride Carbon Dioxide Anion Gap BUN Creatinine Estim Creat Clear Calc Estimated GFR POC Glucose 118 H 130 H 169 H Fasting Glucose Estimat Average Glucose Hemoglobin A1c % Calcium Total Bilirubin AST ALT Alkaline Phosphatase Total Protein Albumin Triglycerides Cholesterol LDL Cholesterol, Calc HDL Cholesterol 01/11/24 01/11/24 01/11/24 08:11 12:39 17:31 WBC RBC Hgb Hct MCV MCH MCHC RDW Plt Count MPV Immature Gran % (Auto) Neut % (Auto) Lymph % (Auto) [place] % (Auto) Eos % (Auto) Baso % (Auto) Lymph # (Auto) [place] # (Auto) Eos # (Auto) Baso # (Auto) Abs Immat Gran (auto) Absolute Neuts (auto) Absolute Nucleated RBC Nucleated RBC % (auto) Sodium Potassium Chloride Carbon Dioxide Anion Gap BUN Creatinine Estim Creat Clear Calc Estimated GFR POC Glucose 125 H 130 H 138 H Fasting Glucose Estimat Average Glucose Hemoglobin A1c % Calcium Total Bilirubin AST ALT Alkaline Phosphatase Total Protein Albumin Triglycerides Cholesterol LDL Cholesterol, Calc HDL Cholesterol Medications Medications Current Medications Acetaminophen (Acetaminophen 325 Mg Tablet) 650 mg PO Q6H PRN PRN Reason: Pain, Mild (Pain Scale 1-3) Al Hydroxide/Mg Hydroxide (Magnesium Hydrox/Alum Hydrox 30 Ml Oral.Susp) 30 ml PO Q6H PRN PRN Reason: Heartburn/Nausea Al Hydroxide/Mg Hydroxide (Magnesium Hydrox/Alum Hydrox 30 Ml Oral.Susp) 10 ml PO TID PRN PRN Reason: Indigestion Albuterol Sulfate (Albuterol Sulfate 90 Mcg 8 Gm Inhaler) 2 puff INHALE Q6H PRN PRN Reason: Shortness Of Breath Or Wheezing Aspirin (Aspirin Enteric Coated 81 Mg Tablet.Dr) 81 mg PO DAILY@799 [facility] Last Admin: 01/11/24 08:39 Dose: 81 mg Atorvastatin Calcium (Atorvastatin Calcium 20 Mg Tablet) 20 mg PO DAILY@1999 [facility] Last Admin: 01/10/24 20:37 Dose: 20 mg Clozapine (Clozapine 25 Mg Tablet) 150 mg PO DAILY [facility] Docusate Sodium (Docusate Sodium 100 Mg Capsule) 100 mg PO BID@ [facility] Last Admin: 01/11/24 08:40 Dose: 100 mg Furosemide (Furosemide 20 Mg Tablet) 20 mg PO DAILY@799 [facility]; Protocol Last Admin: 01/11/24 08:39 Dose: 20 mg Insulin Human Lispro (Insulin Lispro 100 Unit/Ml 3 Ml Vial) 0 unit SUBCUT QIDACHS [facility]; Protocol Last Admin: 01/11/24 17:55 Dose: Not Given Lorazepam (Lorazepam 1 Mg Tablet) 1 mg PO BID [facility] Last Admin: 01/11/24 08:40 Dose: 1 mg Lorazepam (Lorazepam 0.5 Mg Tablet) 0.5 mg PO DAILY@1999 [facility] Last Admin: 01/10/24 20:37 Dose: 0.5 mg Losartan Potassium (Losartan Potassium 25 Mg Tablet) 25 mg PO DAILY@799 [facility]; Protocol Last Admin: 01/11/24 08:39 Dose: 25 mg Lurasidone HCl (Lurasidone Hcl 20 Mg Tablet) 60 mg PO DAILY@799 [facility] Last Admin: 01/11/24 08:39 Dose: 60 mg Magnesium Hydroxide (Milk Of Magnesia 30 Ml Oral.Susp) 30 ml PO DAILY PRN PRN Reason: Constipation Metoprolol Succinate (Metoprolol Succinate Er 50 Mg Tab.Er.24h) 50 mg PO BID@ [facility]; Protocol Last Admin: 01/11/24 08:38 Dose: 50 mg Nicotine (Nicotine 21 Mg Patch.Td24) 21 mg TRANSDERMA DAILY PRN PRN Reason: smoking cessation Nicotine Polacrilex (Nicotine Polacrilex 2 Mg Gum) 4 mg BUCCAL Q2H PRN PRN Reason: Nicotine Cravings Non-Formulary Medication (Linagliptin [Tradjenta]) 5 mg PO DAILY@799 [facility] Non-Formulary Medication (Testosterone [Androgel]) 2 packet TRANSDERMA DAILY [facility] Olanzapine (Olanzapine 5 Mg Tablet) 5 mg PO TID PRN PRN Reason: agitation Omeprazole (Omeprazole 20 Mg Capsule.Dr) 20 mg PO BID@0630,1630 [facility] Last Admin: 01/11/24 05:30 Dose: 20 mg Polyethylene Glycol (Polyethylene Glycol 3350 17 Gm Powd.Pack) 17 gm PO DAILY [facility] Last Admin: 01/11/24 08:44 Dose: Not Given Polyethylene Glycol (Polyethylene Glycol 3350 17 Gm Powd.Pack) 17 gm PO DAILY PRN PRN Reason: Constipation Senna/Docusate Sodium (Sennosides/Docusate Sodium Tablet) 2 tab PO DAILY [facility] Last Admin: 01/11/24 08:39 Dose: 2 tab Tamsulosin HCl (Tamsulosin Hcl 0.4 Mg Capsule) 0.4 mg PO DAILY@1999 [facility] Last Admin: 01/10/24 20:43 Dose: Not Given Trazodone HCl (Trazodone Hcl 50 Mg Tablet) 50 mg PO BEDTIME MRX1 PRN PRN Reason: Insomnia Trazodone HCl (Trazodone Hcl 50 Mg Tablet) 50 mg PO DAILY@1999 [facility] Last Admin: 01/10/24 20:39 Dose: 50 mg Vitamin D (Cholecalciferol (Vitamin D3) 25 Mcg Tablet) 25 mcg PO DAILY@0800 [facility] Last Admin: 01/11/24 08:39 Dose: 25 mcg Allergies Allergies Allergy/AdvReac Type Severity Reaction Status Date / Time lithium [[place]] Allergy Severe Toxicity Verified 01/10/24 05:05 thiothixene Allergy Severe Swelling Verified 01/10/24 05:05 benztropine Allergy Unknown benztropine Verified 12/30/23 15:59 mesylate- unknown gabapentin [From NEURONTIN] Allergy Unknown Unknown Verified 01/10/24 05:05 fluphenazine [From Prolixin] Allergy Unknown Verified 01/10/24 05:04 barium sulfate AdvReac Intermediate Nausea and Verified 01/10/24 05:05 [BARIUM SULFATE] Vomiting haloperidol AdvReac Intermediate Muscle Verified 01/10/24 05:05 tension in legs diphenhydramine AdvReac Unknown urinary Verified 01/10/24 05:05 [From Benadryl] retention Assessment & Plan Assessment & Plan (1) Schizoaffective disorder: Qualifiers: Schizoaffective disorder type: bipolar Qualified Code(s): F25.0 - Schizoaffective disorder, bipolar type Status: Acute Code(s): F25.9 - Schizoaffective disorder, unspecified (2) Diabetes mellitus: Status: Acute Code(s): E11.9 - Type 2 diabetes mellitus without complications (3) BPH (benign prostatic hyperplasia): Qualifiers: Lower urinary tract symptom presence: symptoms present Lower urinary tract symptom detail: urinary frequency Qualified Code(s): N40.1 - Benign prostatic hyperplasia with lower urinary tract symptoms; R35.0 - Frequency of micturition Status: Acute Code(s): N40.0 - Benign prostatic hyperplasia without lower urinary tract symptoms (4) Hypertension: Qualifiers: Hypertension type: essential hypertension Qualified Code(s): I10 - Essential (primary) hypertension Status: Acute Code(s): I10 - Essential (primary) hypertension Plan This is a 58-year-old male with history of diabetes, essential hypertension HOCM, HLD, COPD JUDY, constipation, and schizoaffective disorder, hx of severe and aggressive decompensation, on both Clozaril and Latuda and on a [facility], who is a transfer from medical floor following conservative tx for SBO (likely due to Clozapine which was thus held) who now presents with depression and SI in face of being off Clozapine for a weeks while on medical floor. Pt is very depressed, wishing he were making comments that he should end his life. On Medical floor, once cleared he was restarted on Clozapine and is amenable to continued titration. formulation: hx of schizoaffective disorder with hx of severe decompensation including aggression. Pt requires Clozapine for stability with which he agrees to continue Hospital course: 4/5 patient remains quite depressed; will continue Clozaril titration PLAN: CV q15min continue Clozapine 100mg; continue titrating to home dose 275mg Conitnue Latuda 60mg Senna/docusate daily Miralax 17g daily ambulate pt once per 1st/2nd shift to help w/ abdominal peristalsis/prevent DVT continue other home meds discuss case w/outpt providers/staff regarding SBO and Clozapine: patient medically cleared; did not require surgery; is eating and passing stool w/ out issue. Both surgery and hospitalist considered Clozaril to be possible and maybe even likely cause of small-bowel obstruction. Real Estate Investor discussed case with Dr. Pacheco who knows patient's history and reports that patient requires clozapine to be safe and can get severely decompensated, including aggressive. On medical floor, Real Estate Investor met with patient who was calm, fully oriented, logical and linear, organized and in good behavioral and impulse control. He understands that he has a small-bowel obstruction and that it may very well be due to clozapine; he also understands that continuing clozapine will leave him at continued risk for another bowel obstruction; writer producer reviewed risks of continuing Clozaril including bowel obstruction, need for surgery, even . Patient understood the risks; he said he has been on clozapine a long time, agrees that it helps and agrees to continue taking it despite the risks. Patient is on [facility] [place] and writer producer spoke with Zaki rothman, industrial millwright Veronica Kevin who said she defers to physician discretion regarding med management; she does not think he has an actual guardian (which patient confirms he does not). Patient educated on: diagnosis, medication risk/benefits and therapeutic strategies Informed Consent: understands and further education needed Reason for continued inpatient stay Substantial Risk for: inability to function Time Spent With Patient Time: Total time managing care of this patient today ____ minutes.
[2024-01-11 21:10] VITALS: BP 131/67; PULSE 88; TEMP 36.6
[2024-01-11] MEDS: LORazepam 0.5 MG TABLET PO (21:13)
[2024-01-11] MEDS: Atorvastatin Calcium 20 MG TABLET PO (21:13)
[2024-01-11] MEDS: traZODone HCL 50 MG TABLET PO (21:15)
[2024-01-11 21:25] LABS: Glucose, Whole Blood 166 mg/dL (60-115)
[2024-01-12] MEDS: Omeprazole 20 MG CAPSULE.DR PO ×2 (06:30→16:58)
[2024-01-12 08:00] VITALS: BP 173/90; PULSE 76; RESP 18; TEMP 36.3; O2SAT 94
[2024-01-12 08:04] LABS: Glucose, Whole Blood 145 mg/dL (60-115)
[2024-01-12] MEDS: LORazepam 1 MG TABLET PO ×2 (08:48→19:56)
[2024-01-12] MEDS: Metoprolol Succinate ER 50 MG TAB.ER.24H PO ×2 (08:48→19:56)
[2024-01-12] MEDS: Cholecalciferol (Vitamin D3) 25 MCG TABLET PO (08:48)
[2024-01-12] MEDS: Losartan Potassium 25 MG TABLET PO (08:48)
[2024-01-12] MEDS: Docusate Sodium 100 MG CAPSULE PO ×2 (08:49→19:56)
[2024-01-12] MEDS: Sennosides/Docusate Sodium TABLET 2 TAB PO (08:49)
[2024-01-12] MEDS: Furosemide 20 MG TABLET PO (08:49)
[2024-01-12] MEDS: Aspirin Enteric Coated 81 MG TABLET.DR PO (08:49)
[2024-01-12] MEDS: Lurasidone HCl 20 MG TABLET 60 MG PO (09:05)
[2024-01-12 12:13] LABS: Glucose, Whole Blood 171 mg/dL (60-115)
[2024-01-12] MEDS: Insulin Lispro 100 UNIT/ML 3 ML VIAL SUBCUT (12:16)
--- NOTE | 2024-01-12 12:45 | P.PNPSI_ITS ---
Subjective Subjective Date of Service: 01/12/24 Reason For Visit: SI; decompensation Interim History: Pt seen, reviewed with team, plan of care reviewed. Visable at times, mostly in his room. Non verbal when approached, lies in bed, turns away when attempts to talk with pt. Alert, attentive. Review of Systems Acute medical concerns: No Medical Review of Systems: unchanged Review of Systems Review of Systems Yes Unobtainable due to mental status Mental Status Exam Mental Status Exam Narrative: Pt is alert and oriented; behavior is quiet, lying in bed, patient is not in distress; dressed in hospital attire with unkempt hair, disheveled; mood is described as sad and affect congruent, downcast; eye contact avoidant; Speech is quiet, sparse; not pressured; significant psychomotor retardation present; thought process is goal directed; Thought content is on hopeless feelings; no delusional content expressed; passive SI; no HI. seems internally preoccupied Patients insight and judgment impaired. Diagnostics Vital Signs (24Hr): Vital Signs - 24 hr 01/11/24 21:10 01/12/24 08:00 Temperature 97.9 F 97.4 F Pulse Rate 88 76 Respiratory Rate 18 Blood Pressure 131/67 173/90 H Pulse Oximetry 94 Oxygen Delivery Method Room Air Labs 01/10/24 09:17 01/10/24 09:17 Labs: Laboratory Results - last 48 hr 01/10/24 01/10/24 01/11/24 17:27 20:55 08:11 POC Glucose 130 H 169 H 125 H 01/11/24 01/11/24 01/11/24 12:39 17:31 21:21 POC Glucose 130 H 138 H 166 H 01/12/24 01/12/24 07:58 12:08 POC Glucose 145 H 171 H Medications Medications Current Medications Acetaminophen (Acetaminophen 325 Mg Tablet) 650 mg PO Q6H PRN PRN Reason: Pain, Mild (Pain Scale 1-3) Al Hydroxide/Mg Hydroxide (Magnesium Hydrox/Alum Hydrox 30 Ml Oral.Susp) 30 ml PO Q6H PRN PRN Reason: Heartburn/Nausea Al Hydroxide/Mg Hydroxide (Magnesium Hydrox/Alum Hydrox 30 Ml Oral.Susp) 10 ml PO TID PRN PRN Reason: Indigestion Albuterol Sulfate (Albuterol Sulfate 90 Mcg 8 Gm Inhaler) 2 puff INHALE Q6H PRN PRN Reason: Shortness Of Breath Or Wheezing Aspirin (Aspirin Enteric Coated 81 Mg Tablet.) 81 mg PO DAILY@799 [facility] Last Admin: 01/12/24 08:49 Dose: 81 mg Atorvastatin Calcium (Atorvastatin Calcium 20 Mg Tablet) 20 mg PO DAILY@1999 [facility] Last Admin: 01/11/24 21:13 Dose: 20 mg Clozapine (Clozapine 25 Mg Tablet) 175 mg PO DAILY [facility] Docusate Sodium (Docusate Sodium 100 Mg Capsule) 100 mg PO BID@ [facility] Last Admin: 01/12/24 08:49 Dose: 100 mg Furosemide (Furosemide 20 Mg Tablet) 20 mg PO DAILY@799 [facility]; Protocol Last Admin: 01/12/24 08:49 Dose: 20 mg Insulin Human Lispro (Insulin Lispro 100 Unit/Ml 3 Ml Vial) 0 unit SUBCUT QIDACHS [facility]; Protocol Last Admin: 01/12/24 12:16 Dose: 2 unit Lorazepam (Lorazepam 1 Mg Tablet) 1 mg PO BID [facility] Last Admin: 01/12/24 08:48 Dose: 1 mg Lorazepam (Lorazepam 0.5 Mg Tablet) 0.5 mg PO DAILY@1999 [facility] Last Admin: 01/11/24 21:13 Dose: 0.5 mg Losartan Potassium (Losartan Potassium 25 Mg Tablet) 25 mg PO DAILY@799 [facility]; Protocol Last Admin: 01/12/24 08:48 Dose: 25 mg Lurasidone HCl (Lurasidone Hcl 20 Mg Tablet) 60 mg PO DAILY@799 [facility] Last Admin: 01/12/24 09:05 Dose: 60 mg Magnesium Hydroxide (Milk Of Magnesia 30 Ml Oral.Susp) 30 ml PO DAILY PRN PRN Reason: Constipation Metoprolol Succinate (Metoprolol Succinate Er 50 Mg Tab.Er.24h) 50 mg PO BID@ [facility]; Protocol Last Admin: 01/12/24 08:48 Dose: 50 mg Nicotine (Nicotine 21 Mg Patch.Td24) 21 mg TRANSDERMA DAILY PRN PRN Reason: smoking cessation Nicotine Polacrilex (Nicotine Polacrilex 2 Mg Gum) 4 mg BUCCAL Q2H PRN PRN Reason: Nicotine Cravings Non-Formulary Medication (Linagliptin [Tradjenta]) 5 mg PO DAILY@08 [facility] Non-Formulary Medication (Testosterone [Androgel]) 2 packet TRANSDERMA DAILY [facility] Olanzapine (Olanzapine 5 Mg Tablet) 5 mg PO TID PRN PRN Reason: agitation Omeprazole (Omeprazole 20 Mg Capsule.Dr) 20 mg PO BID@0630,1630 [facility] Last Admin: 01/12/24 06:30 Dose: 20 mg Polyethylene Glycol (Polyethylene Glycol 3350 17 Gm Powd.Pack) 17 gm PO DAILY [facility] Last Admin: 01/12/24 08:49 Dose: Not Given Polyethylene Glycol (Polyethylene Glycol 3350 17 Gm Powd.Pack) 17 gm PO DAILY PRN PRN Reason: Constipation Senna/Docusate Sodium (Sennosides/Docusate Sodium Tablet) 2 tab PO DAILY [facility] Last Admin: 01/12/24 08:49 Dose: 2 tab Tamsulosin HCl (Tamsulosin Hcl 0.4 Mg Capsule) 0.4 mg PO DAILY@1999 [facility] Last Admin: 01/11/24 21:24 Dose: Not Given Trazodone HCl (Trazodone Hcl 50 Mg Tablet) 50 mg PO BEDTIME MRX1 PRN PRN Reason: Insomnia Trazodone HCl (Trazodone Hcl 50 Mg Tablet) 50 mg PO DAILY@1999 [facility] Last Admin: 01/11/24 21:15 Dose: 50 mg Vitamin D (Cholecalciferol (Vitamin D3) 25 Mcg Tablet) 25 mcg PO DAILY@0800 [facility] Last Admin: 01/12/24 08:48 Dose: 25 mcg Allergies Allergies Allergy/AdvReac Type Severity Reaction Status Date / Time lithium [[place]] Allergy Severe Toxicity Verified 01/10/24 05:05 thiothixene Allergy Severe Swelling Verified 01/10/24 05:05 benztropine Allergy Unknown benztropine Verified 12/30/23 15:59 mesylate- unknown gabapentin [From NEURONTIN] Allergy Unknown Unknown Verified 01/10/24 05:05 fluphenazine [From Prolixin] Allergy Unknown Verified 01/10/24 05:04 barium sulfate AdvReac Intermediate Nausea and Verified 01/10/24 05:05 [BARIUM SULFATE] Vomiting haloperidol AdvReac Intermediate Muscle Verified 01/10/24 05:05 tension in legs diphenhydramine AdvReac Unknown urinary Verified 01/10/24 05:05 [From Benadryl] retention Assessment & Plan Assessment & Plan (1) Schizoaffective disorder: Qualifiers: Schizoaffective disorder type: bipolar Qualified Code(s): F25.0 - Schizoaffective disorder, bipolar type Status: Acute Code(s): F25.9 - Schizoaffective disorder, unspecified (2) Diabetes mellitus: Status: Acute Code(s): E11.9 - Type 2 diabetes mellitus without complications (3) BPH (benign prostatic hyperplasia): Qualifiers: Lower urinary tract symptom detail: urinary frequency Lower urinary tract symptom presence: symptoms present Qualified Code(s): N40.1 - Benign prostatic hyperplasia with lower urinary tract symptoms; R35.0 - Frequency of micturition Status: Acute Code(s): N40.0 - Benign prostatic hyperplasia without lower urinary tract symptoms (4) Hypertension: Qualifiers: Hypertension type: essential hypertension Qualified Code(s): I10 - Essential (primary) hypertension Status: Acute Code(s): I10 - Essential (primary) hypertension Plan This is a 58-year-old male with history of diabetes, essential hypertension HOCM, HLD, COPD JUDY, constipation, and schizoaffective disorder, hx of severe and aggressive decompensation, on both Clozaril and Latuda and on a Community [facility], who is a transfer from medical floor following conservative tx for SBO (likely due to Clozapine which was thus held) who now presents with depression and SI in face of being off Clozapine for a weeks while on medical floor. Pt is very depressed, wishing he were making comments that he should end his life. On Medical floor, once cleared he was restarted on Clozapine and is amenable to continued titration. formulation: hx of schizoaffective disorder with hx of severe decompensation including aggression. Pt requires Clozapine for stability with which he agrees to continue Hospital course: 01/10 patient remains quite depressed; will continue Clozaril titration 01/11 continue tx PLAN: CV q15min continue Clozapine 100mg; continue titrating to home dose 275mg Conitnue Latuda 60mg Senna/docusate daily Miralax 17g daily ambulate pt once per /2nd shift to help w/ abdominal peristalsis/prevent DVT continue other home meds discuss case w/outpt providers/staff regarding SBO and Clozapine: patient medically cleared; did not require surgery; is eating and passing stool w/ out issue. Both surgery and hospitalist considered Clozaril to be possible and maybe even likely cause of small-bowel obstruction. Teacher discussed case with Dr. Pacheco who knows patient's history and reports that patient requires clozapine to be safe and can get severely decompensated, including aggressive. On medical floor, Teacher met with patient who was calm, fully oriented, logical and linear, organized and in good behavioral and impulse control. He understands that he has a small-bowel obstruction and that it may very well be due to clozapine; he also understands that continuing clozapine will leave him at continued risk for another bowel obstruction; marketing copywriter reviewed risks of continuing Clozaril including bowel obstruction, need for surgery, even . Patient understood the risks; he said he has been on clozapine a long time, agrees that it helps and agrees to continue taking it despite the risks. Patient is [place] [facility] [place] and marketing copywriter spoke with Zaki munozan, rattling machine tender Veronica Kevin who said she defers to physician discretion regarding med management; she does not think he has an actual guardian (which patient confirms he does not). Reason for continued inpatient stay Substantial Risk for: rapid decompensation Time Spent With Patient Time: Total time managing care of this patient today ____ minutes.
[2024-01-12 16:46] VITALS: BP 127/83; PULSE 98; RESP 16; TEMP 36.4; O2SAT 96
--- NOTE | 2024-01-12 16:59 | PC.NURSE ---
Navid reported he moved his bowels x 2 today.
[2024-01-12 17:12] LABS: Glucose, Whole Blood 132 mg/dL (60-115)
[2024-01-12] MEDS: LORazepam 0.5 MG TABLET PO (19:56)
[2024-01-12] MEDS: Atorvastatin Calcium 20 MG TABLET PO (19:56)
[2024-01-12] MEDS: Tamsulosin HCL 0.4 MG CAPSULE PO (19:56)
[2024-01-12] MEDS: traZODone HCL 50 MG TABLET PO (19:56)
[2024-01-12 20:10] LABS: Glucose, Whole Blood 208 mg/dL (60-115)
--- NOTE | 2024-01-12 22:15 | PC.NURSE ---
Patient ambulated up and down kaminski once this shift. Smells like urine in room so RN changed bed linens and patient changed his daron top/ bottom, and his brief was saturated in urine. Isolative to room and self. Declined insulin for blood sugar of 206. No acute issues tonight.
--- NOTE | 2024-01-13 05:56 | HO.PSYCHPN ---
Subjective Subjective Date of Service: 01/13/24 Reason For Visit: SI; decompensation Interim History: Pt seen, discussed with team, plan of care reviewed. Reports blood in his stool and urine. Ordered guiac and urine culture. Pt provided samples- no apparant blood in his urine. Remains isolated, depressed, some increase in communication today. Medication Compliance: Yes Side effects from medications: No Attending Groups: No Review of Systems as noted Medical Review of Systems: unchanged Review of Systems Review of Systems reports blood in his stool and urine Mental Status Exam Mental Status Exam Patient Appearance: Fatigued and Disheveled Patient Orientation: Person and Place Level of Consciousness: Alert Patient Behavior: Guarded and Good Eye Contact Mood Description: Depressed Affect Description: Flat Patient Cognition Impaired: No Ability to Follow Directions: Fair Speech Pattern: Spontaneous Speech Memory Description: Episodic Impaired Hallucinations: Auditory Delusions: Paranoid Ideation and Present Thought Process: Rumination Thought Content: positive for Perseveration Depressive Symptoms: Increased Anxiety, Hopelessness and Low Self Esteem Judgement: Fair Diagnostics Vital Signs (24Hr): Vital Signs - 24 hr 01/12/24 08:00 01/12/24 16:46 Temperature 97.4 F 97.6 F Pulse Rate 76 98 Respiratory Rate 18 16 Blood Pressure 173/90 H 127/83 Pulse Oximetry 94 96 Oxygen Delivery Method Room Air Room Air Labs 01/10/24 09:17 01/10/24 09:17 Labs: Laboratory Results - last 48 hr 01/11/24 01/11/24 01/11/24 08:11 12:39 17:31 POC Glucose 125 H 130 H 138 H 01/11/24 01/12/24 01/12/24 21:21 07:58 12:08 POC Glucose 166 H 145 H 171 H 01/12/24 01/12/24 17:07 19:55 POC Glucose 132 H 208 H Medications Medications Current Medications Acetaminophen (Acetaminophen 325 Mg Tablet) 650 mg PO Q6H PRN PRN Reason: Pain, Mild (Pain Scale 1-3) Al Hydroxide/Mg Hydroxide (Magnesium Hydrox/Alum Hydrox 30 Ml Oral.Susp) 30 ml PO Q6H PRN PRN Reason: Heartburn/Nausea Al Hydroxide/Mg Hydroxide (Magnesium Hydrox/Alum Hydrox 30 Ml Oral.Susp) 10 ml PO TID PRN PRN Reason: Indigestion Albuterol Sulfate (Albuterol Sulfate 90 Mcg 8 Gm Inhaler) 2 puff INHALE Q6H PRN PRN Reason: Shortness Of Breath Or Wheezing Aspirin (Aspirin Enteric Coated 81 Mg Tablet.Dr) 81 mg PO DAILY@799 [facility] Last Admin: 01/12/24 08:49 Dose: 81 mg Atorvastatin Calcium (Atorvastatin Calcium 20 Mg Tablet) 20 mg PO DAILY@1999 [facility] Last Admin: 01/12/24 19:56 Dose: 20 mg Clozapine (Clozapine 25 Mg Tablet) 175 mg PO DAILY [facility] Docusate Sodium (Docusate Sodium 100 Mg Capsule) 100 mg PO BID@ [facility] Last Admin: 01/12/24 19:56 Dose: 100 mg Furosemide (Furosemide 20 Mg Tablet) 20 mg PO DAILY@799 [facility]; Protocol Last Admin: 01/12/24 08:49 Dose: 20 mg Insulin Human Lispro (Insulin Lispro 100 Unit/Ml 3 Ml Vial) [facility]; Protocol Last Admin: 01/12/24 17:13 Dose: Not Given Lorazepam (Lorazepam 1 Mg Tablet) 1 mg PO BID [facility] Last Admin: 01/12/24 19:56 Dose: 1 mg Lorazepam (Lorazepam 0.5 Mg Tablet) 0.5 mg PO DAILY@1999 [facility] Last Admin: 01/12/24 19:56 Dose: 0.5 mg Losartan Potassium (Losartan Potassium 25 Mg Tablet) 25 mg PO DAILY@799 [facility]; Protocol Last Admin: 01/12/24 08:48 Dose: 25 mg Lurasidone HCl (Lurasidone Hcl 20 Mg Tablet) 60 mg PO DAILY@799 [facility] Last Admin: 01/12/24 09:05 Dose: 60 mg Magnesium Hydroxide (Milk Of Magnesia 30 Ml Oral.Susp) 30 ml PO DAILY PRN PRN Reason: Constipation Metoprolol Succinate (Metoprolol Succinate Er 50 Mg Tab.Er.24h) 50 mg PO BID@ [facility]; Protocol Last Admin: 01/12/24 19:56 Dose: 50 mg Nicotine (Nicotine 21 Mg Patch.Td24) 21 mg TRANSDERMA DAILY PRN PRN Reason: smoking cessation Nicotine Polacrilex (Nicotine Polacrilex 2 Mg Gum) 4 mg BUCCAL Q2H PRN PRN Reason: Nicotine Cravings Non-Formulary Medication (Linagliptin [Tradjenta]) 5 mg PO DAILY@08 [facility] Non-Formulary Medication (Testosterone [Androgel]) 2 packet TRANSDERMA DAILY [facility] Olanzapine (Olanzapine 5 Mg Tablet) 5 mg PO TID PRN PRN Reason: agitation Omeprazole (Omeprazole 20 Mg Capsule.) 20 mg PO BID@0630,1630 [facility] Last Admin: 01/12/24 16:58 Dose: 20 mg Polyethylene Glycol (Polyethylene Glycol 3350 17 Gm Powd.Pack) 17 gm PO DAILY [facility] Last Admin: 01/12/24 08:49 Dose: Not Given Polyethylene Glycol (Polyethylene Glycol 3350 17 Gm Powd.Pack) 17 gm PO DAILY PRN PRN Reason: Constipation Senna/Docusate Sodium (Sennosides/Docusate Sodium Tablet) 2 tab PO DAILY [facility] Last Admin: 01/12/24 08:49 Dose: 2 tab Tamsulosin HCl (Tamsulosin Hcl 0.4 Mg Capsule) 0.4 mg PO DAILY@1999 [facility] Last Admin: 01/12/24 19:56 Dose: 0.4 mg Trazodone HCl (Trazodone Hcl 50 Mg Tablet) 50 mg PO BEDTIME MRX1 PRN PRN Reason: Insomnia Trazodone HCl (Trazodone Hcl 50 Mg Tablet) 50 mg PO DAILY@1999 [facility] Last Admin: 01/12/24 19:56 Dose: 50 mg Vitamin D (Cholecalciferol (Vitamin D3) 25 Mcg Tablet) 25 mcg PO DAILY@0800 [facility] Last Admin: 01/12/24 08:48 Dose: 25 mcg Allergies Allergies Allergy/AdvReac Type Severity Reaction Status Date / Time lithium [[place]] Allergy Severe Toxicity Verified 01/10/24 05:05 thiothixene Allergy Severe Swelling Verified 01/10/24 05:05 benztropine Allergy Unknown benztropine Verified 12/30/23 15:59 mesylate- unknown gabapentin [From NEURONTIN] Allergy Unknown Unknown Verified 01/10/24 05:05 fluphenazine [From Prolixin] Allergy Unknown Verified 01/10/24 05:04 barium sulfate AdvReac Intermediate Nausea and Verified 01/10/24 05:05 [BARIUM SULFATE] Vomiting haloperidol AdvReac Intermediate Muscle Verified 01/10/24 05:05 tension in legs diphenhydramine AdvReac Unknown urinary Verified 01/10/24 05:05 [From Benadryl] retention Assessment & Plan Assessment & Plan (1) Schizoaffective disorder: Qualifiers: Schizoaffective disorder type: bipolar Qualified Code(s): F25.0 - Schizoaffective disorder, bipolar type Status: Acute Code(s): F25.9 - Schizoaffective disorder, unspecified (2) Diabetes mellitus: Status: Acute Code(s): E11.9 - Type 2 diabetes mellitus without complications (3) BPH (benign prostatic hyperplasia): Qualifiers: Lower urinary tract symptom detail: urinary frequency Lower urinary tract symptom presence: symptoms present Qualified Code(s): N40.1 - Benign prostatic hyperplasia with lower urinary tract symptoms; R35.0 - Frequency of micturition Status: Acute Code(s): N40.0 - Benign prostatic hyperplasia without lower urinary tract symptoms (4) Hypertension: Qualifiers: Hypertension type: essential hypertension Qualified Code(s): I10 - Essential (primary) hypertension Status: Acute Code(s): I10 - Essential (primary) hypertension Plan This is a 58-year-old male with history of diabetes, essential hypertension HOCM, HLD, COPD JUDY, constipation, and schizoaffective disorder, hx of severe and aggressive decompensation, on both Clozaril and Latuda and on a [facility], who is a transfer from medical floor following conservative tx for SBO (likely due to Clozapine which was thus held) who now presents with depression and SI in face of being off Clozapine for a weeks while on medical floor. Pt is very depressed, wishing he were making comments that he should end his life. On Medical floor, once cleared he was restarted on Clozapine and is amenable to continued titration. formulation: hx of schizoaffective disorder with hx of severe decompensation including aggression. Pt requires Clozapine for stability with which he agrees to continue Hospital course: 01/10 patient remains quite depressed; will continue Clozaril titration 01/12 continue tx stool culture, urine culture PLAN: CV q15min continue Clozapine 100mg; continue titrating to home dose 275mg Conitnue Latuda 60mg Senna/docusate daily Miralax 17g daily ambulate pt once per 1st/2nd shift to help w/ abdominal peristalsis/prevent DVT continue other home meds discuss case w/outpt providers/staff regarding SBO and Clozapine: patient medically cleared; did not require surgery; is eating and passing stool w/ out issue. Both surgery and hospitalist considered Clozaril to be possible and maybe even likely cause of small-bowel obstruction. Supervisor [employer] discussed case with Dr. Pacheco who knows patient's history and reports that patient requires clozapine to be safe and can get severely decompensated, including aggressive. On medical floor, Supervisor [employer] met with patient who was calm, fully oriented, logical and linear, organized and in good behavioral and impulse control. He understands that he has a small-bowel obstruction and that it may very well be due to clozapine; he also understands that continuing clozapine will leave him at continued risk for another bowel obstruction; manual writer reviewed risks of continuing Clozaril including bowel obstruction, need for surgery, even . Patient understood the risks; he said he has been on clozapine a long time, agrees that it helps and agrees to continue taking it despite the risks. Patient is on [facility] and manual writer spoke with Zaki rothman, marine photographer Veronica Kevin who said she defers to physician discretion regarding med management; she does not think he has an actual guardian (which patient confirms he does not). Reason for continued inpatient stay Substantial Risk for: rapid decompensation Time Spent With Patient Time: Total time managing care of this patient today ____ minutes.
[2024-01-13] MEDS: Omeprazole 20 MG CAPSULE.DR PO ×2 (06:27→16:14)
[2024-01-13 08:05] LABS: Glucose, Whole Blood 138 mg/dL (60-115)
[2024-01-13 08:25] VITALS: BP 114/65; PULSE 85; RESP 18; TEMP 36.6; O2SAT 95
[2024-01-13] MEDS: Cholecalciferol (Vitamin D3) 25 MCG TABLET PO (08:30)
[2024-01-13] MEDS: Aspirin Enteric Coated 81 MG TABLET.DR PO (08:30)
[2024-01-13] MEDS: Lurasidone HCl 20 MG TABLET 60 MG PO (08:30)
[2024-01-13] MEDS: Docusate Sodium 100 MG CAPSULE PO ×2 (08:30→20:38)
[2024-01-13] MEDS: Metoprolol Succinate ER 50 MG TAB.ER.24H PO ×2 (08:30→20:38)
[2024-01-13] MEDS: cloZAPine 25 MG TABLET 175 MG PO (08:30)
[2024-01-13] MEDS: LORazepam 1 MG TABLET PO ×2 (08:30→20:38)
[2024-01-13] MEDS: Furosemide 20 MG TABLET PO (08:30)
[2024-01-13] MEDS: Sennosides/Docusate Sodium TABLET 2 TAB PO (08:31)
[2024-01-13] MEDS: Losartan Potassium 25 MG TABLET PO (08:31)
[2024-01-13 12:21] LABS: Glucose, Whole Blood 183 mg/dL (60-115)
[2024-01-13 12:48] LABS: OBS Int Ctl Valid YES; OBS1 NEGATIVE (NEGATIVE)
[2024-01-13 16:12] LABS: Glucose, Whole Blood 109 mg/dL (60-115)
[2024-01-13 18:00] VITALS: BP 133/60; PULSE 93; RESP 16; TEMP 36.7; O2SAT 99
[2024-01-13] MEDS: traZODone HCL 50 MG TABLET PO (20:37)
[2024-01-13] MEDS: LORazepam 0.5 MG TABLET PO (20:38)
[2024-01-13] MEDS: Tamsulosin HCL 0.4 MG CAPSULE PO (20:38)
[2024-01-13] MEDS: Atorvastatin Calcium 20 MG TABLET PO (20:38)
[2024-01-13 20:58] LABS: Glucose, Whole Blood 171 mg/dL (60-115)
[2024-01-14] MEDS: Omeprazole 20 MG CAPSULE.DR PO ×2 (07:01→17:23)
[2024-01-14 07:59] LABS: Glucose, Whole Blood 148 mg/dL (60-115)
[2024-01-14 08:00] VITALS: BP 158/92; PULSE 81; RESP 18; TEMP 36.8; O2SAT 94
[2024-01-14] MEDS: Lurasidone HCl 20 MG TABLET 60 MG PO (08:43)
[2024-01-14] MEDS: cloZAPine 25 MG TABLET 175 MG PO (08:44)
[2024-01-14] MEDS: Aspirin Enteric Coated 81 MG TABLET.DR PO (08:44)
[2024-01-14] MEDS: Metoprolol Succinate ER 50 MG TAB.ER.24H PO (08:44)
[2024-01-14] MEDS: LORazepam 1 MG TABLET PO (08:44)
[2024-01-14] MEDS: Docusate Sodium 100 MG CAPSULE PO (08:44)
[2024-01-14] MEDS: Cholecalciferol (Vitamin D3) 25 MCG TABLET PO (08:44)
[2024-01-14] MEDS: Furosemide 20 MG TABLET PO (08:45)
[2024-01-14] MEDS: Sennosides/Docusate Sodium TABLET 2 TAB PO (08:45)
[2024-01-14] MEDS: Losartan Potassium 25 MG TABLET PO (08:45)
--- NOTE | 2024-01-14 08:45 | P.PNPSI_ITS ---
Subjective Subjective Date of Service: 01/14/24 Reason For Visit: SI; decompensation Interim History: Met with patient; discussed with team; reviewed weekend notes pt remains depressed, staying isolated. he says i feel empty... and that he wished he were , though no active thoughts. Otherwise he was difficult with which to engage; lead technical writer explained titration of mediation that should restore his mood but he said it won't help... pt not eating much; gets up and walks throughout shift only since prompted by staff Mental Status Exam Mental Status Exam Narrative: Pt is alert and oriented; behavior is quiet, lying in bed, patient is not in distress; dressed in hospital attire with unkempt hair, disheveled; mood is described as empty and affect congruent, downcast; eye contact avoidant; Speech is quiet, sparse; not pressured; significant psychomotor retardation present; thought process is goal directed; Thought content is on hopeless feelings; no delusional content expressed; passive SI; no HI. seems internally preoccupied Patients insight and judgment impaired. Diagnostics Vital Signs (24Hr): Vital Signs - 24 hr 01/13/24 18:00 Temperature 98.1 F Pulse Rate 93 Respiratory Rate 16 Blood Pressure 133/60 Pulse Oximetry 99 Oxygen Delivery Method Room Air Labs 01/10/24 09:17 01/10/24 09:17 Labs: Laboratory Results - last 48 hr 01/12/24 01/12/24 01/12/24 12:08 17:07 19:55 POC Glucose 171 H 132 H 208 H Stool Occult Blood 01/13/24 01/13/24 01/13/24 07:58 12:10 12:28 POC Glucose 138 H 183 H Stool Occult Blood NEGATIVE 01/13/24 01/13/24 01/14/24 16:08 20:43 07:51 POC Glucose 109 171 H 148 H Stool Occult Blood Medications Medications Current Medications Acetaminophen (Acetaminophen 325 Mg Tablet) 650 mg PO Q6H PRN PRN Reason: Pain, Mild (Pain Scale 1-3) Al Hydroxide/Mg Hydroxide (Magnesium Hydrox/Alum Hydrox 30 Ml Oral.Susp) 30 ml PO Q6H PRN PRN Reason: Heartburn/Nausea Al Hydroxide/Mg Hydroxide (Magnesium Hydrox/Alum Hydrox 30 Ml Oral.Susp) 10 ml PO TID PRN PRN Reason: Indigestion Albuterol Sulfate (Albuterol Sulfate 90 Mcg 8 Gm Inhaler) 2 puff INHALE Q6H PRN PRN Reason: Shortness Of Breath Or Wheezing Aspirin (Aspirin Enteric Coated 81 Mg Tablet.Dr) 81 mg PO DAILY@7[facility] Last Admin: 01/13/24 08:30 Dose: 81 mg Atorvastatin Calcium (Atorvastatin Calcium 20 Mg Tablet) 20 mg PO DAILY@1999 [facility] Last Admin: 01/13/24 20:38 Dose: 20 mg Clozapine (Clozapine 25 Mg Tablet) 175 mg PO DAILY [facility] Last Admin: 01/13/24 08:30 Dose: 175 mg Docusate Sodium (Docusate Sodium 100 Mg Capsule) 100 mg PO BID@ [facility] Last Admin: 01/13/24 20:38 Dose: 100 mg Furosemide (Furosemide 20 Mg Tablet) 20 mg PO DAILY@799 [facility]; Protocol Last Admin: 01/13/24 08:30 Dose: 20 mg Insulin Human Lispro (Insulin Lispro 100 Unit/Ml 3 Ml Vial) 0 unit SUBCUT QIDACHS [facility]; Protocol Last Admin: 01/14/24 08:00 Dose: Not Given Lorazepam (Lorazepam 1 Mg Tablet) 1 mg PO BID [facility] Last Admin: 01/13/24 20:38 Dose: 1 mg Lorazepam (Lorazepam 0.5 Mg Tablet) 0.5 mg PO DAILY@1999 [facility] Last Admin: 01/13/24 20:38 Dose: 0.5 mg Losartan Potassium (Losartan Potassium 25 Mg Tablet) 25 mg PO DAILY@799 [facility]; Protocol Last Admin: 01/13/24 08:31 Dose: 25 mg Lurasidone HCl (Lurasidone Hcl 20 Mg Tablet) 60 mg PO DAILY@799 [facility] Last Admin: 01/13/24 08:30 Dose: 60 mg Magnesium Hydroxide (Milk Of Magnesia 30 Ml Oral.Susp) 30 ml PO DAILY PRN PRN Reason: Constipation Metoprolol Succinate (Metoprolol Succinate Er 50 Mg Tab.Er.24h) 50 mg PO BID@ [facility]; Protocol Last Admin: 01/13/24 20:38 Dose: 50 mg Nicotine (Nicotine 21 Mg Patch.Td24) 21 mg TRANSDERMA DAILY PRN PRN Reason: smoking cessation Nicotine Polacrilex (Nicotine Polacrilex 2 Mg Gum) 4 mg BUCCAL Q2H PRN PRN Reason: Nicotine Cravings Non-Formulary Medication (Linagliptin [Tradjenta]) 5 mg PO DAILY@0800 [facility] Non-Formulary Medication (Testosterone [Androgel]) 2 packet TRANSDERMA DAILY [facility] Olanzapine (Olanzapine 5 Mg Tablet) 5 mg PO TID PRN PRN Reason: agitation Omeprazole (Omeprazole 20 Mg Capsule.) 20 mg PO BID@0630,1630 [facility] Last Admin: 01/14/24 07:01 Dose: 20 mg Polyethylene Glycol (Polyethylene Glycol 3350 17 Gm Powd.Pack) 17 gm PO DAILY [facility] Last Admin: 01/13/24 08:31 Dose: Not Given Polyethylene Glycol (Polyethylene Glycol 3350 17 Gm Powd.Pack) 17 gm PO DAILY PRN PRN Reason: Constipation Senna/Docusate Sodium (Sennosides/Docusate Sodium Tablet) 2 tab PO DAILY [facility] Last Admin: 01/13/24 08:31 Dose: 2 tab Tamsulosin HCl (Tamsulosin Hcl 0.4 Mg Capsule) 0.4 mg PO DAILY@1999 [facility] Last Admin: 01/13/24 20:38 Dose: 0.4 mg Trazodone HCl (Trazodone Hcl 50 Mg Tablet) 50 mg PO BEDTIME MRX1 PRN PRN Reason: Insomnia Trazodone HCl (Trazodone Hcl 50 Mg Tablet) 50 mg PO DAILY@1999 [facility] Last Admin: 01/13/24 20:37 Dose: 50 mg Vitamin D (Cholecalciferol (Vitamin D3) 25 Mcg Tablet) 25 mcg PO DAILY@0800 [facility] Last Admin: 01/13/24 08:30 Dose: 25 mcg Allergies Allergies Allergy/AdvReac Type Severity Reaction Status Date / Time lithium [[place]] Allergy Severe Toxicity Verified 01/10/24 05:05 thiothixene Allergy Severe Swelling Verified 01/10/24 05:05 benztropine Allergy Unknown benztropine Verified 12/30/23 15:59 mesylate- unknown gabapentin [From NEURONTIN] Allergy Unknown Unknown Verified 01/10/24 05:05 fluphenazine [From Prolixin] Allergy Unknown Verified 01/10/24 05:04 barium sulfate AdvReac Intermediate Nausea and Verified 01/10/24 05:05 [BARIUM SULFATE] Vomiting haloperidol AdvReac Intermediate Muscle Verified 01/10/24 05:05 tension in legs diphenhydramine AdvReac Unknown urinary Verified 01/10/24 05:05 [From Benadryl] retention Assessment & Plan Assessment & Plan (1) Schizoaffective disorder: Qualifiers: Schizoaffective disorder type: bipolar Qualified Code(s): F25.0 - Schizoaffective disorder, bipolar type Status: Acute Code(s): F25.9 - Schizoaffective disorder, unspecified (2) Diabetes mellitus: Status: Acute Code(s): E11.9 - Type 2 diabetes mellitus without complications (3) BPH (benign prostatic hyperplasia): Qualifiers: Lower urinary tract symptom detail: urinary frequency Lower urinary tract symptom presence: symptoms present Qualified Code(s): N40.1 - Benign prostatic hyperplasia with lower urinary tract symptoms; R35.0 - Frequency of micturition Status: Acute Code(s): N40.0 - Benign prostatic hyperplasia without lower urinary tract symptoms (4) Hypertension: Qualifiers: Hypertension type: essential hypertension Qualified Code(s): I10 - Essential (primary) hypertension Status: Acute Code(s): I10 - Essential (primary) hypertension Plan This is a 58-year-old male with history of diabetes, essential hypertension HOCM, HLD, COPD JUDY, constipation, and schizoaffective disorder, hx of severe and aggressive decompensation, on both Clozaril and Latuda and on a [employer], who is a transfer from medical floor following conservative tx for SBO (likely due to Clozapine which was thus held) who now presents with depression and SI in face of being off Clozapine for a weeks while on medical floor. Pt is very depressed, wishing he were making comments that he should end his life. On Medical floor, once cleared he was restarted on Clozapine and is amenable to continued titration. formulation: hx of schizoaffective disorder with hx of severe decompensation including aggression. Pt requires Clozapine for stability with which he agrees to continue Hospital course: 01/10 patient remains quite depressed; will continue Clozaril titration 01/12 continue tx stool culture: neg, urine culture: neg 01/13 pt remains depressed, staying isolated. he says i feel empty... and that he wished he were , though no active thoughts. Otherwise he was difficult with which to engage; lead technical writer explained titration of mediation that should restore his mood but he said it won't help...pt not eating much; gets up and walks throughout shift only since prompted by staff PLAN: RICHELLE q15min continue titration of Clozapine to home dose 275mg Conitnue Latuda 60mg Senna/docusate daily Miralax 17g daily ambulate pt once per / shift to help w/ abdominal peristalsis/prevent DVT continue other home meds discuss case w/outpt providers/staff regarding SBO and Clozapine: patient medically cleared; did not require surgery; is eating and passing stool w/ out issue. Both surgery and hospitalist considered Clozaril to be possible and maybe even likely cause of small-bowel obstruction. Biophysics Professor discussed case with Dr. Pacheco who knows patient's history and reports that patient requires clozapine to be safe and can get severely decompensated, including aggressive. On medical floor, Biophysics Professor met with patient who was calm, fully oriented, logical and linear, organized and in good behavioral and impulse control. He understands that he has a small-bowel obstruction and that it may very well be due to clozapine; he also understands that continuing clozapine will leave him at continued risk for another bowel obstruction; lead technical writer reviewed risks of continuing Clozaril including bowel obstruction, need for surgery, even . Patient understood the risks; he said he has been on clozapine a long time, agrees that it helps and agrees to continue taking it despite the risks. Patient is on [facility] and lead technical writer spoke with Zaki rothman, [place] attorney Veronica Kevin who said she defers to physician discretion regarding med management; she does not think he has an actual guardian (which patient confirms he does not). Patient educated on: diagnosis, medication risk/benefits and therapeutic strategies Informed Consent: understands, does not understand and further education needed Reason for continued inpatient stay Substantial Risk for: inability to function Time Spent With Patient Time: Total time managing care of this patient today ____ minutes.
[2024-01-14] MEDS: cloZAPine 100 MG TABLET 200 MG PO (09:10)
[2024-01-14 12:36] LABS: Glucose, Whole Blood 185 mg/dL (60-115)
[2024-01-14] MEDS: Insulin Lispro 100 UNIT/ML 3 ML VIAL SUBCUT ×3 (12:46→20:28)
[2024-01-14 17:38] LABS: Glucose, Whole Blood 151 mg/dL (60-115)
[2024-01-14 18:00] VITALS: BP 121/68; PULSE 94; TEMP 37.2; O2SAT 95
[2024-01-14 20:02] LABS: Glucose, Whole Blood 223 mg/dL (60-115)
--- NOTE | 2024-01-15 | ECG_ITS ---
Test Reason : weakness Blood Pressure : / mmHG Vent. Rate : 117 BPM Atrial Rate : 117 BPM P-R Int : 158 ms QRS Dur : 098 ms QT Int : 356 ms P-R-T Axes : 097 055 206 degrees QTc Int : 496 ms Sinus tachycardia Left ventricular hypertrophy with repolarization abnormality ( Sokolow-Vences ) Abnormal ECG When compared to the previous EKG of No significant changes seen Referred By: Geraldo Garcia Electronically Signed By:JEREMIAS MARTIN MD
[2024-01-15] MEDS: Omeprazole 20 MG CAPSULE.DR PO (05:30)
[2024-01-15 08:00] VITALS: BP 138/71; PULSE 116; RESP 16; TEMP 36.6; O2SAT 98
[2024-01-15 08:04] LABS: Glucose, Whole Blood 227 mg/dL (60-115)
[2024-01-15] MEDS: Insulin Lispro 100 UNIT/ML 3 ML VIAL SUBCUT ×2 (08:52→12:27)
[2024-01-15] MEDS: Sennosides/Docusate Sodium TABLET 2 TAB PO (08:53)
[2024-01-15] MEDS: cloZAPine 25 MG TABLET 225 MG PO (08:53)
[2024-01-15] MEDS: Furosemide 20 MG TABLET PO (08:54)
[2024-01-15] MEDS: Lurasidone HCl 20 MG TABLET 60 MG PO (08:54)
[2024-01-15] MEDS: Docusate Sodium 100 MG CAPSULE PO (08:54)
[2024-01-15 08:55] LABS: Neut%MD 85.3 %; Neutrophils Absolute Auto 8.6 x10*3/uL (2.0-8.3); WBCANC 10.1 X10*3/uL
[2024-01-15] MEDS: LORazepam 1 MG TABLET PO (08:55)
[2024-01-15] MEDS: Aspirin Enteric Coated 81 MG TABLET.DR PO (08:55)
[2024-01-15] MEDS: Losartan Potassium 25 MG TABLET PO (08:55)
[2024-01-15] MEDS: Metoprolol Succinate ER 50 MG TAB.ER.24H PO (08:55)
[2024-01-15] MEDS: Cholecalciferol (Vitamin D3) 25 MCG TABLET PO (08:55)
--- NOTE | 2024-01-15 08:59 | P.PNPSI_ITS ---
Subjective Subjective Date of Service: 01/15/24 Reason For Visit: SI; decompensation Interim History: Met with patient; discussed with team Diagnostics Vital Signs (24Hr): Vital Signs - 24 hr 01/14/24 18:00 Temperature 98.9 F Pulse Rate 94 Blood Pressure 121/68 Pulse Oximetry 95 Oxygen Delivery Method Room Air Labs 01/10/24 09:17 01/10/24 09:17 Labs: Laboratory Results - last 48 hr 01/13/24 01/13/24 01/13/24 12:10 12:28 16:08 Absolute Neuts (auto) POC Glucose 183 H 109 Stool Occult Blood NEGATIVE 01/13/24 01/14/24 01/14/24 20:43 07:51 12:29 Absolute Neuts (auto) POC Glucose 171 H 148 H 185 H Stool Occult Blood 01/14/24 01/14/24 01/15/24 17:30 19:57 07:34 Absolute Neuts (auto) POC Glucose 151 H 223 H 227 H Stool Occult Blood 01/15/24 08:42 Absolute Neuts (auto) 8.6 H POC Glucose Stool Occult Blood Medications Medications Current Medications Acetaminophen (Acetaminophen 325 Mg Tablet) 650 mg PO Q6H PRN PRN Reason: Pain, Mild (Pain Scale 1-3) Al Hydroxide/Mg Hydroxide (Magnesium Hydrox/Alum Hydrox 30 Ml Oral.Susp) 30 ml PO Q6H PRN PRN Reason: Heartburn/Nausea Al Hydroxide/Mg Hydroxide (Magnesium Hydrox/Alum Hydrox 30 Ml Oral.Susp) 10 ml PO TID PRN PRN Reason: Indigestion Albuterol Sulfate (Albuterol Sulfate 90 Mcg 8 Gm Inhaler) 2 puff INHALE Q6H PRN PRN Reason: Shortness Of Breath Or Wheezing Aspirin (Aspirin Enteric Coated 81 Mg Tablet.) 81 mg PO DAILY@0800 [facility] Last Admin: 01/14/24 08:44 Dose: 81 mg Atorvastatin Calcium (Atorvastatin Calcium 20 Mg Tablet) 20 mg PO DAILY@1999 [facility] Last Admin: 01/14/24 20:39 Dose: Not Given Clozapine (Clozapine 25 Mg Tablet) 225 mg PO DAILY [facility] Docusate Sodium (Docusate Sodium 100 Mg Capsule) 100 mg PO BID@799,1999 [facility] Last Admin: 01/14/24 20:39 Dose: Not Given Furosemide (Furosemide 20 Mg Tablet) 20 mg PO DAILY@08 [facility]; Protocol Last Admin: 01/14/24 08:45 Dose: 20 mg Insulin Human Lispro (Insulin Lispro 100 Unit/Ml 3 Ml Vial) 0 unit SUBCUT QIDACHS [facility]; Protocol Last Admin: 01/14/24 20:28 Dose: 2 unit Lorazepam (Lorazepam 1 Mg Tablet) 1 mg PO BID [facility] Last Admin: 01/14/24 20:43 Dose: Not Given Lorazepam (Lorazepam 0.5 Mg Tablet) 0.5 mg PO DAILY@1999 [facility] Last Admin: 01/14/24 20:39 Dose: Not Given Losartan Potassium (Losartan Potassium 25 Mg Tablet) 25 mg PO DAILY@799 [facility]; Protocol Last Admin: 01/14/24 08:45 Dose: 25 mg Lurasidone HCl (Lurasidone Hcl 20 Mg Tablet) 60 mg PO DAILY@799 [facility] Last Admin: 01/14/24 08:43 Dose: 60 mg Magnesium Hydroxide (Milk Of Magnesia 30 Ml Oral.Susp) 30 ml PO DAILY PRN PRN Reason: Constipation Metoprolol Succinate (Metoprolol Succinate Er 50 Mg Tab.Er.24h) 50 mg PO BID@ [facility]; Protocol Last Admin: 01/14/24 20:39 Dose: Not Given Nicotine (Nicotine 21 Mg Patch.Td24) 21 mg TRANSDERMA DAILY PRN PRN Reason: smoking cessation Nicotine Polacrilex (Nicotine Polacrilex 2 Mg Gum) 4 mg BUCCAL Q2H PRN PRN Reason: Nicotine Cravings Olanzapine (Olanzapine 5 Mg Tablet) 5 mg PO TID PRN PRN Reason: agitation Omeprazole (Omeprazole 20 Mg Capsule.Dr) 20 mg PO BID@0630,1630 [facility] Last Admin: 01/15/24 05:30 Dose: 20 mg Polyethylene Glycol (Polyethylene Glycol 3350 17 Gm Powd.Pack) 17 gm PO DAILY [facility] Last Admin: 01/14/24 08:46 Dose: Not Given Polyethylene Glycol (Polyethylene Glycol 3350 17 Gm Powd.Pack) 17 gm PO DAILY PRN PRN Reason: Constipation Senna/Docusate Sodium (Sennosides/Docusate Sodium Tablet) 2 tab PO DAILY [facility] Last Admin: 01/14/24 08:45 Dose: 2 tab Tamsulosin HCl (Tamsulosin Hcl 0.4 Mg Capsule) 0.4 mg PO DAILY@1999 [facility] Last Admin: 01/14/24 20:33 Dose: Not Given Trazodone HCl (Trazodone Hcl 50 Mg Tablet) 50 mg PO BEDTIME MRX1 PRN PRN Reason: Insomnia Trazodone HCl (Trazodone Hcl 50 Mg Tablet) 50 mg PO DAILY@1999 [facility] Last Admin: 01/14/24 20:40 Dose: Not Given Vitamin D (Cholecalciferol (Vitamin D3) 25 Mcg Tablet) 25 mcg PO DAILY@0800 [facility] Last Admin: 01/14/24 08:44 Dose: 25 mcg Allergies Allergies Allergy/AdvReac Type Severity Reaction Status Date / Time lithium [Pelzer] Allergy Severe Toxicity Verified 01/10/24 05:05 thiothixene Allergy Severe Swelling Verified 01/10/24 05:05 benztropine Allergy Unknown benztropine Verified 12/30/23 15:59 mesylate- unknown gabapentin [From NEURONTIN] Allergy Unknown Unknown Verified 01/10/24 05:05 fluphenazine [From Prolixin] Allergy Unknown Verified 01/10/24 05:04 barium sulfate AdvReac Intermediate Nausea and Verified 01/10/24 05:05 [BARIUM SULFATE] Vomiting haloperidol AdvReac Intermediate Muscle Verified 01/10/24 05:05 tension in legs diphenhydramine AdvReac Unknown urinary Verified 01/10/24 05:05 [From Benadryl] retention Assessment & Plan Assessment & Plan (1) Schizoaffective disorder: Qualifiers: Schizoaffective disorder type: bipolar Qualified Code(s): F25.0 - Schizoaffective disorder, bipolar type Status: Acute Code(s): F25.9 - Schizoaffective disorder, unspecified (2) Diabetes mellitus: Status: Acute Code(s): E11.9 - Type 2 diabetes mellitus without complications (3) BPH (benign prostatic hyperplasia): Qualifiers: Lower urinary tract symptom presence: symptoms present Lower urinary tract symptom detail: urinary frequency Qualified Code(s): N40.1 - Benign prostatic hyperplasia with lower urinary tract symptoms; R35.0 - Frequency of micturition Status: Acute Code(s): N40.0 - Benign prostatic hyperplasia without lower urinary tract symptoms (4) Hypertension: Qualifiers: Hypertension type: essential hypertension Qualified Code(s): I10 - Essential (primary) hypertension Status: Acute Code(s): I10 - Essential (primary) hypertension Plan This is a 58-year-old male with history of diabetes, essential hypertension HOCM, HLD, COPD UJDY, constipation, and schizoaffective disorder, hx of severe and aggressive decompensation, on both Clozaril and Latuda and on a [facility], who is a transfer from medical floor following conservative tx for SBO (likely due to Clozapine which was thus held) who now presents with depression and SI in face of being off Clozapine for a weeks while on medical floor. Pt is very depressed, wishing he were making comments that he should end his life. On Medical floor, once cleared he was restarted on Clozapine and is amenable to continued titration. formulation: hx of schizoaffective disorder with hx of severe decompensation including aggression. Pt requires Clozapine for stability with which he agrees to continue Hospital course: 01/10 patient remains quite depressed; will continue Clozaril titration 01/12 continue tx stool culture: neg, urine culture: neg 01/13 pt remains depressed, staying isolated. he says i feel empty... and that he wished he were , though no active thoughts. Otherwise he was difficult with which to engage; fha underwriter explained titration of mediation that should restore his mood but he said it won't help...pt not eating much; gets up and walks throughout shift only since prompted by staff PLAN: CV q15min continue titration of Clozapine to home dose 275mg Conitnue Latuda 60mg Senna/docusate daily Miralax 17g daily ambulate pt once per / shift to help w/ abdominal peristalsis/prevent DVT continue other home meds discuss case w/outpt providers/staff regarding SBO and Clozapine: patient medically cleared; did not require surgery; is eating and passing stool w/ out issue. Both surgery and hospitalist considered Clozaril to be possible and maybe even likely cause of small-bowel obstruction. Chiller Tender discussed case with Dr. Pacheco who knows patient's history and reports that patient requires clozapine to be safe and can get severely decompensated, including aggressive. On medical floor, Chiller Tender met with patient who was calm, fully oriented, logical and linear, organized and in good behavioral and impulse control. He understands that he has a small-bowel obstruction and that it may very well be due to clozapine; he also understands that continuing clozapine will leave him at continued risk for another bowel obstruction; fha underwriter reviewed risks of continuing Clozaril including bowel obstruction, need for surgery, even . Patient understood the risks; he said he has been on clozapine a long time, agrees that it helps and agrees to continue taking it despite the risks. Patient is on [facility] and fha underwriter spoke with Zaki munozan, economic development specialist Veronica Kevin who said she defers to physician discretion regarding med management; she does not think he has an actual guardian (which patient confirms he does not). Time Spent With Patient Time: Total time managing care of this patient today ____ minutes.
[2024-01-15 12:22] LABS: Glucose, Whole Blood 173 mg/dL (60-115)
[2024-01-15 13:40] VITALS: BP 121/56; PULSE 122; RESP 48
--- NOTE | 2024-01-15 13:40 | PC.NURSE ---
Patient was found by ISAIAH Sánchez to be diaphoretic, tachypneic, and altered (caox2). Leadership and Provider was notified. Rapid response was called, provider at bedside, rapid response team arrived 1340, pt assessed, vitals, ekg, blood work, and iv access obtained. Patient was subsequently transfered to medical floor via stretcher. ISAIAH Sánchez went with patient to give bedside report on receiving unit.
[2024-01-15 13:45] VITALS: PULSE 132; RESP 46; O2SAT 96
[2024-01-15 13:55] VITALS: BP 111/70; PULSE 117; RESP 48; O2SAT 94
[2024-01-15 14:00] LABS: Glucose, Whole Blood 137 mg/dL (60-115)
--- NOTE | 2024-01-15 14:05 | PM.EVENT ---
Event Note Date of Service: 01/15/24 Event Note: SPAR FINISHER called due to ams while on M5. The patient is oriented x3 but per staff has not been behaving like himself. Unable to sit up, stand. Seems confused. On exam, mild exophthalmos noted. PERRLA, CN II- XII in tact. abd soft ntt, softly distended obese abdomen. Heart RRR, lungs cta. Pt noted to be diaphoretic. Denies complaints. HR 122. BP 122/68, 96%. EKG sinus tach, possible LVH, no blocks or acute ischemic changes. Etiology of symptoms unclear. Per staff, Clozaril level recently increased. CBC, CMP, lactic acid, blood cultures, troponin, BNP, VBG, ammonia, TSH with reflex free T4 and Clozaril level ordered. UA/UC ordered. Will check KUB, CXR, head CT. Patient will be transferred to [facility] for further evaluation management. Time Spent With Patient Time: Total time managing care of this patient today ____ minutes.
[2024-01-15 14:07] LABS: MANUAL DIFF FLAG NO
--- NOTE | 2024-01-15 14:10 | PM.PSYDC ---
DS: Providers Provider Date of Service: 01/15/24 Date of admission: 01/09/24 12:31 Date of discharge: 01/15/24 Primary care physician: Unknown Physician Attending physician on admission: Geraldo Garcia Attending physician on discharge: Geraldo Garcia DS: Diagnosis Discharge Diagnosis (1) Schizoaffective disorder: Status: Acute (2) Diabetes mellitus: Status: Acute (3) BPH (benign prostatic hyperplasia): Status: Acute (4) Hypertension: Status: Acute DS: Medications Discharge Medications Home Medications: Home Medications ?Medication ?Instructions ?Recorded ?Confirmed docusate sodium 100 mg capsule 1 cap PO BID@0800,199908/18/22 12/31/23 atorvastatin 20 mg tablet 20 mg PO DAILY@199904/20/23 12/31/23 lorazepam 0.5 mg tablet 0.5 mg PO DAILY@199904/20/23 12/31/23 lorazepam 1 mg tablet 1 mg PO BID@0800,159904/20/23 12/31/23 albuterol sulfate 90 mcg/actuation 2 puff inhalation Q6H PRN 10/10/23 12/31/23 aerosol inhaler Shortness Of Breath Or Wheezing aspirin 81 mg tablet,delayed 81 mg PO DAILY@79910/10/23 12/31/23 release testosterone 1.62 % (20.25 mg/1.25 2 packet transdermal DAILY 10/10/23 12/31/23 gram) transdermal gel packet (AndroGel) linagliptin 5 mg tablet (Tradjenta) 5 mg PO DAILY@79911/03/23 12/31/23 losartan 25 mg tablet 25 mg PO DAILY@79911/03/23 12/31/23 lurasidone 60 mg tablet 60 mg PO DAILY@79911/03/23 12/31/23 trazodone 50 mg tablet 50 mg PO DAILY@199911/03/23 12/31/23 alfuzosin 10 mg tablet,extended 10 mg PO DAILY@199912/31/23 12/31/23 release 24 hr aluminum-mag hydroxide-simethicone 10 ml PO TID PRN Indigestion 12/31/23 12/31/23 200 mg-200 mg-20 mg/5 mL oral susp furosemide 20 mg tablet 20 mg PO DAILY@79912/31/23 12/31/23 metoprolol succinate 50 mg 50 mg PO BID@0800,199912/31/23 12/31/23 tablet,extended release 24 hr polyethylene glycol 3350 17 17 g PO DAILY PRN Constipation 12/31/23 12/31/23 gram/dose oral powder (Miralax) Previous Rx's ?Medication ?Instructions ?Recorded cholecalciferol (vitamin D3) 25 25 mcg PO DAILY@0800 30 days #30 01/09/24 mcg (1,000 unit) tablet tabs insulin lispro 100 unit/mL See Protocol subcut QIDACHS #10 mL 01/09/24 subcutaneous solution (Admelog U-100 Insulin lispro) lorazepam 1 mg tablet 1 mg PO BID #60 tabs 01/09/24 omeprazole 20 mg capsule,delayed 20 mg PO BID@0630,1630 #30 caps 01/09/24 release sennosides 8.6 mg-docusate sodium 2 tab PO DAILY #60 tabs 01/09/24 50 mg tablet (Senna Plus) cholecalciferol (vitamin D3) 25 25 mcg PO DAILY@0800 #0 tabs 01/15/24 mcg (1,000 unit) tablet clozapine 25 mg tablet 225 mg (9 x 25 mg) PO DAILY #0 tabs 01/15/24 insulin lispro 100 unit/mL See Protocol subcut QIDACHS #0 mL 01/15/24 subcutaneous solution (Admelog U-100 Insulin lispro) polyethylene glycol 3350 17 gram 17 g PO DAILY #0 ea 01/15/24 oral powder packet sennosides 8.6 mg-docusate sodium 2 tab PO DAILY #0 tabs 01/15/24 50 mg tablet (Senna Plus) Mental Status Exam Mental Status Exam Narrative: altered, confused desheveled; speech mumbled; thought process muddled; thought content distracted; judgment/insight impaired. Data Data Completed and Pending Completed studies during hospitalization [Text1]: 01/09/24 01/10/24 01/10/24 19:57 07:53 09:17 WBC 10.5 RBC 4.51 L Hgb 12.3 L Hct 37.9 L MCV 84.0 MCH 27.3 MCHC 32.5 RDW 14.8 Plt Count 155 L MPV 12.5 H Immature Gran % (Auto) 1.1 H Neut % (Auto) 78.3 H Lymph % (Auto) 12.1 L [place] % (Auto) 7.2 Eos % (Auto) 0.9 Baso % (Auto) 0.4 Lymph # (Auto) 1.3 [place] # (Auto) 0.8 Eos # (Auto) 0.1 Baso # (Auto) 0.0 Abs Immat Gran (auto) 0.11 H Absolute Neuts (auto) 8.2 Absolute Nucleated RBC 0.000 Nucleated RBC % (auto) 0.0 D-Dimer High Sensitivty Sodium 148 H Potassium 3.6 Chloride 116 H Carbon Dioxide 23 Anion Gap 13 BUN 13 Creatinine 1.11 Estim Creat Clear Calc TNP Estimated GFR > 60 POC Glucose 165 H 122 H Random Glucose Fasting Glucose 128 H Estimat Average Glucose 131 Hemoglobin A1c % 6.2 H Lactic Acid Calcium 8.9 Total Bilirubin 0.3 AST 18 ALT 27 Alkaline Phosphatase 58 Ammonia Troponin I High Sens C-Reactive Protein B-Natriuretic Peptide Total Protein 6.5 Albumin 3.6 Triglycerides 178 H Cholesterol 131 LDL Cholesterol, Calc 73 HDL Cholesterol 23 L TSH Stool Occult Blood 01/10/24 01/10/24 01/10/24 12:10 17:27 20:55 WBC RBC Hgb Hct MCV MCH MCHC RDW Plt Count MPV Immature Gran % (Auto) Neut % (Auto) Lymph % (Auto) [place] % (Auto) Eos % (Auto) Baso % (Auto) Lymph # (Auto) [place] # (Auto) Eos # (Auto) Baso # (Auto) Abs Immat Gran (auto) Absolute Neuts (auto) Absolute Nucleated RBC Nucleated RBC % (auto) D-Dimer High Sensitivty Sodium Potassium Chloride Carbon Dioxide Anion Gap BUN Creatinine Estim Creat Clear Calc Estimated GFR POC Glucose 118 H 130 H 169 H Random Glucose Fasting Glucose Estimat Average Glucose Hemoglobin A1c % Lactic Acid Calcium Total Bilirubin AST ALT Alkaline Phosphatase Ammonia Troponin I High Sens C-Reactive Protein B-Natriuretic Peptide Total Protein Albumin Triglycerides Cholesterol LDL Cholesterol, Calc HDL Cholesterol TSH Stool Occult Blood 01/11/24 01/11/24 01/11/24 08:11 12:39 17:31 WBC RBC Hgb Hct MCV MCH MCHC RDW Plt Count MPV Immature Gran % (Auto) Neut % (Auto) Lymph % (Auto) [place] % (Auto) Eos % (Auto) Baso % (Auto) Lymph # (Auto) [place] # (Auto) Eos # (Auto) Baso # (Auto) Abs Immat Gran (auto) Absolute Neuts (auto) Absolute Nucleated RBC Nucleated RBC % (auto) D-Dimer High Sensitivty Sodium Potassium Chloride Carbon Dioxide Anion Gap BUN Creatinine Estim Creat Clear Calc Estimated GFR POC Glucose 125 H 130 H 138 H Random Glucose Fasting Glucose Estimat Average Glucose Hemoglobin A1c % Lactic Acid Calcium Total Bilirubin AST ALT Alkaline Phosphatase Ammonia Troponin I High Sens C-Reactive Protein B-Natriuretic Peptide Total Protein Albumin Triglycerides Cholesterol LDL Cholesterol, Calc HDL Cholesterol TSH Stool Occult Blood 01/11/24 01/12/24 01/12/24 21:21 07:58 12:08 WBC RBC Hgb Hct MCV MCH MCHC RDW Plt Count MPV Immature Gran % (Auto) Neut % (Auto) Lymph % (Auto) [place] % (Auto) Eos % (Auto) Baso % (Auto) Lymph # (Auto) [place] # (Auto) Eos # (Auto) Baso # (Auto) Abs Immat Gran (auto) Absolute Neuts (auto) Absolute Nucleated RBC Nucleated RBC % (auto) D-Dimer High Sensitivty Sodium Potassium Chloride Carbon Dioxide Anion Gap BUN Creatinine Estim Creat Clear Calc Estimated GFR POC Glucose 166 H 145 H 171 H Random Glucose Fasting Glucose Estimat Average Glucose Hemoglobin A1c % Lactic Acid Calcium Total Bilirubin AST ALT Alkaline Phosphatase Ammonia Troponin I High Sens C-Reactive Protein B-Natriuretic Peptide Total Protein Albumin Triglycerides Cholesterol LDL Cholesterol, Calc HDL Cholesterol TSH Stool Occult Blood 01/12/24 01/12/24 01/13/24 17:07 19:55 07:58 WBC RBC Hgb Hct MCV MCH MCHC RDW Plt Count MPV Immature Gran % (Auto) Neut % (Auto) Lymph % (Auto) [place] % (Auto) Eos % (Auto) Baso % (Auto) Lymph # (Auto) [place] # (Auto) Eos # (Auto) Baso # (Auto) Abs Immat Gran (auto) Absolute Neuts (auto) Absolute Nucleated RBC Nucleated RBC % (auto) D-Dimer High Sensitivty Sodium Potassium Chloride Carbon Dioxide Anion Gap BUN Creatinine Estim Creat Clear Calc Estimated GFR POC Glucose 132 H 208 H 138 H Random Glucose Fasting Glucose Estimat Average Glucose Hemoglobin A1c % Lactic Acid Calcium Total Bilirubin AST ALT Alkaline Phosphatase Ammonia Troponin I High Sens C-Reactive Protein B-Natriuretic Peptide Total Protein Albumin Triglycerides Cholesterol LDL Cholesterol, Calc HDL Cholesterol TSH Stool Occult Blood 01/13/24 01/13/24 01/13/24 12:10 12:28 16:08 WBC RBC Hgb Hct MCV MCH MCHC RDW Plt Count MPV Immature Gran % (Auto) Neut % (Auto) Lymph % (Auto) [place] % (Auto) Eos % (Auto) Baso % (Auto) Lymph # (Auto) [place] # (Auto) Eos # (Auto) Baso # (Auto) Abs Immat Gran (auto) Absolute Neuts (auto) Absolute Nucleated RBC Nucleated RBC % (auto) D-Dimer High Sensitivty Sodium Potassium Chloride Carbon Dioxide Anion Gap BUN Creatinine Estim Creat Clear Calc Estimated GFR POC Glucose 183 H 109 Random Glucose Fasting Glucose Estimat Average Glucose Hemoglobin A1c % Lactic Acid Calcium Total Bilirubin AST ALT Alkaline Phosphatase Ammonia Troponin I High Sens C-Reactive Protein B-Natriuretic Peptide Total Protein Albumin Triglycerides Cholesterol LDL Cholesterol, Calc HDL Cholesterol TSH Stool Occult Blood NEGATIVE 01/13/24 01/14/24 01/14/24 20:43 07:51 12:29 WBC RBC Hgb Hct MCV MCH MCHC RDW Plt Count MPV Immature Gran % (Auto) Neut % (Auto) Lymph % (Auto) [place] % (Auto) Eos % (Auto) Baso % (Auto) Lymph # (Auto) [place] # (Auto) Eos # (Auto) Baso # (Auto) Abs Immat Gran (auto) Absolute Neuts (auto) Absolute Nucleated RBC Nucleated RBC % (auto) D-Dimer High Sensitivty Sodium Potassium Chloride Carbon Dioxide Anion Gap BUN Creatinine Estim Creat Clear Calc Estimated GFR POC Glucose 171 H 148 H 185 H Random Glucose Fasting Glucose Estimat Average Glucose Hemoglobin A1c % Lactic Acid Calcium Total Bilirubin AST ALT Alkaline Phosphatase Ammonia Troponin I High Sens C-Reactive Protein B-Natriuretic Peptide Total Protein Albumin Triglycerides Cholesterol LDL Cholesterol, Calc HDL Cholesterol TSH Stool Occult Blood 01/14/24 01/14/24 01/15/24 17:30 19:57 07:34 WBC RBC Hgb Hct MCV MCH MCHC RDW Plt Count MPV Immature Gran % (Auto) Neut % (Auto) Lymph % (Auto) [place] % (Auto) Eos % (Auto) Baso % (Auto) Lymph # (Auto) [place] # (Auto) Eos # (Auto) Baso # (Auto) Abs Immat Gran (auto) Absolute Neuts (auto) Absolute Nucleated RBC Nucleated RBC % (auto) D-Dimer High Sensitivty Sodium Potassium Chloride Carbon Dioxide Anion Gap BUN Creatinine Estim Creat Clear Calc Estimated GFR POC Glucose 151 H 223 H 227 H Random Glucose Fasting Glucose Estimat Average Glucose Hemoglobin A1c % Lactic Acid Calcium Total Bilirubin AST ALT Alkaline Phosphatase Ammonia Troponin I High Sens C-Reactive Protein B-Natriuretic Peptide Total Protein Albumin Triglycerides Cholesterol LDL Cholesterol, Calc HDL Cholesterol TSH Stool Occult Blood 01/15/24 01/15/24 01/15/24 08:42 12:17 13:41 WBC RBC Hgb Hct MCV MCH MCHC RDW Plt Count MPV Immature Gran % (Auto) Neut % (Auto) Lymph % (Auto) [place] % (Auto) Eos % (Auto) Baso % (Auto) Lymph # (Auto) [place] # (Auto) Eos # (Auto) Baso # (Auto) Abs Immat Gran (auto) Absolute Neuts (auto) 8.6 H Absolute Nucleated RBC Nucleated RBC % (auto) D-Dimer High Sensitivty Sodium Potassium Chloride Carbon Dioxide Anion Gap BUN Creatinine Estim Creat Clear Calc Estimated GFR POC Glucose 173 H 137 H Random Glucose Fasting Glucose Estimat Average Glucose Hemoglobin A1c % Lactic Acid Calcium Total Bilirubin AST ALT Alkaline Phosphatase Ammonia Troponin I High Sens C-Reactive Protein B-Natriuretic Peptide Total Protein Albumin Triglycerides Cholesterol LDL Cholesterol, Calc HDL Cholesterol TSH Stool Occult Blood 01/15/24 14:00 WBC Pending RBC Pending Hgb Pending Hct Pending MCV Pending MCH Pending MCHC Pending RDW Pending Plt Count Pending MPV Pending Immature Gran % (Auto) Pending Neut % (Auto) Pending Lymph % (Auto) Pending [place] % (Auto) Pending Eos % (Auto) Pending Baso % (Auto) Pending Lymph # (Auto) Pending [place] # (Auto) Pending Eos # (Auto) Pending Baso # (Auto) Pending Abs Immat Gran (auto) Pending Absolute Neuts (auto) Pending Absolute Nucleated RBC Pending Nucleated RBC % (auto) Pending D-Dimer High Sensitivty Pending Sodium Pending Potassium Pending Chloride Pending Carbon Dioxide Pending Anion Gap Pending BUN Pending Creatinine Pending Estim Creat Clear Calc Pending Estimated GFR Pending POC Glucose Random Glucose Pending Fasting Glucose Estimat Average Glucose Hemoglobin A1c % Lactic Acid Pending Calcium Pending Total Bilirubin Pending AST Pending ALT Pending Alkaline Phosphatase Pending Ammonia Pending Troponin I High Sens Pending C-Reactive Protein Pending B-Natriuretic Peptide Pending Total Protein Pending Albumin Pending Triglycerides Cholesterol LDL Cholesterol, Calc HDL Cholesterol TSH Pending Stool Occult Blood 01/15/24 14:00 Blood - Venous Blood Culture - Pending 01/15/24 14:00 Blood - Venous Blood Culture - Pending DS: Summary Hospital Course Hospital Course: This is a 58-year-old male with history of diabetes, essential hypertension HOCM, HLD, COPD JUDY, constipation, and schizoaffective disorder, hx of severe and aggressive decompensation, on both Clozaril and Latuda and on a [facility], who is a transfer from medical floor following conservative tx for SBO (likely due to Clozapine which was thus held) who now presents with depression and SI in face of being off Clozapine for a weeks while on medical floor. Pt is very depressed, wishing he were making comments that he should end his life. On Medical floor, once cleared he was restarted on Clozapine and is amenable to continued titration. formulation: hx of schizoaffective disorder with hx of severe decompensation including aggression. Pt requires Clozapine for stability with which he agrees to continue Hospital course: 01/10 patient remains quite depressed; will continue Clozaril titration 01/12 continue tx stool culture: neg, urine culture: neg 01/13 pt remains depressed, staying isolated. he says i feel empty... and that he wished he were , though no active thoughts. Otherwise he was difficult with which to engage; life insurance underwriter explained titration of mediation that should restore his mood but he said it won't help...pt not eating much; gets up and walks throughout shift only since prompted by staff on 01/14 pt became altered, tachycardic and tachypneac (RR 40), weak and dizzy. Rapid response called and pt transfered to medical floor PLAN at time of transfer: continue titration of Clozapine to home dose 275mg Conitnue Latuda 60mg Senna/docusate daily Miralax 17g daily ambulate pt 2x per / shift to help w/ abdominal peristalsis/prevent DVT continue other home meds regarding SBO and Clozapine: patient medically cleared; did not require surgery; is eating and passing stool w/ out issue. Both surgery and hospitalist considered Clozaril to be possible and maybe even likely cause of small-bowel obstruction. Interactive Video Technician discussed case with Dr. Pacheco who knows patient's history and reports that patient requires clozapine to be safe and can get severely decompensated, including aggressive. On medical floor, Interactive Video Technician met with patient who was calm, fully oriented, logical and linear, organized and in good behavioral and impulse control. He understands that he has a small-bowel obstruction and that it may very well be due to clozapine; he also understands that continuing clozapine will leave him at continued risk for another bowel obstruction; life insurance underwriter reviewed risks of continuing Clozaril including bowel obstruction, need for surgery, even . Patient understood the risks; he said he has been on clozapine a long time, agrees that it helps and agrees to continue taking it despite the risks. Patient is on [facility] and life insurance underwriter spoke with Zaki rothman, securities attorney Veronica Kevin who said she defers to physician discretion regarding med management; she does not think he has an actual guardian Time Spent with Patient Time attestation: Total time managing care of this patient today ____ minutes. Discharge Plan Discharge Anticipated Discharge Date/Time: 01/15/24 14:08 Patient Disposition: Xfer Other Discharge Diagnosis: schizoaffective disorder, bipolar type Referrals: Physician,Unknown J [Primary Care Provider] - 1 Week Discharge Medications: New polyethylene glycol 3350 17 gram Powder In Packet 17 g PO DAILY Qty: 0 0RF sennosides-docusate sodium [Senna Plus] 8.6-50 mg Tablet 2 tab PO DAILY Qty: 0 0RF clozapine 25 mg Tablet 225 mg PO DAILY Qty: 0 0RF insulin lispro [Admelog U-100 Insulin lispro] 100 unit/mL Solution See Protocol subcut QIDACHS Qty: 0 0RF Protocol: Insulin Correction Scale Less than or equal to 110 ---- Give (units): 0 111 to 150 Give (units): 0 151 to 200 Give (units): 2 201 to 250 Give (units): 4 251 to 300 Give (units): 6 301 to 350 Give (units): 8 Greater than 350 Give (units): 10 Call MD if Blood Glucose > : 350 cholecalciferol (vitamin D3) 25 mcg (1,000 unit) Tablet 25 mcg PO DAILY@0800 Qty: 0 0RF Continued docusate sodium 100 mg capsule 1 cap PO BID@0800,1999 atorvastatin 20 mg tablet 20 mg PO DAILY@1999 lorazepam 1 mg tablet 1 mg PO BID@0800,1600 lorazepam 0.5 mg Tablet 0.5 mg PO DAILY@1999 losartan 25 mg tablet 25 mg PO DAILY@0800 trazodone 50 mg tablet 50 mg PO DAILY@1999 lurasidone 60 mg tablet 60 mg PO DAILY@0800 Tradjenta 5 mg tablet 5 mg PO DAILY@0800 alfuzosin 10 mg tablet extended release 24 hr 10 mg PO DAILY@1999 Rx Instructions: Take before bedtime metoprolol succinate 50 mg tablet extended release 24 hr 50 mg PO BID@0800,1999 furosemide 20 mg tablet 20 mg PO DAILY@0800 Protocol: Hold for SBP< HOLD for SBP < : 90 alum-mag hydroxide-simeth 200-200-20 mg/5 mL Suspension 10 ml PO TID PRN (Reason: Indigestion) Rx Instructions: administer between meals and at bedtime polyethylene glycol 3350 [Miralax] 17 gram/dose Powder 17 g PO DAILY PRN (Reason: Constipation) sennosides-docusate sodium [Senna Plus] 8.6-50 mg Tablet 2 tab PO DAILY Qty: 60 0RF omeprazole 20 mg Capsule,Delayed Release(Dr/Ec) 20 mg PO BID@0630,1630 Qty: 30 0RF lorazepam 1 mg Tablet 1 mg PO BID Qty: 60 0RF insulin lispro [Admelog U-100 Insulin lispro] 100 unit/mL Solution See Protocol subcut QIDACHS Qty: 10 0RF Protocol: Insulin Correction Scale Less than or equal to 110 ---- Give (units): 0 111 to 150 Give (units): 0 151 to 200 Give (units): 2 201 to 250 Give (units): 4 251 to 300 Give (units): 6 301 to 350 Give (units): 8 Greater than 350 Give (units): 10 Call MD if Blood Glucose > : 350 cholecalciferol (vitamin D3) 25 mcg (1,000 unit) Tablet 25 mcg PO DAILY@0800 30 Days Qty: 30 0RF testosterone [AndroGel] 1.62 % (20.25 mg/1.25 gram) gel in packet 2 packet TRANSDERMAL DAILY Rx Instructions: apply 20.25 mg /1 packet to max area of EACH upper arm and shoulder albuterol sulfate 90 mcg/actuation HFA aerosol inhaler 2 puff inhalation Q6H PRN (Reason: Shortness Of Breath Or Wheezing) aspirin 81 mg Tablet,Delayed Release (Dr/Ec) 81 mg PO DAILY@0800 Discontinued clozapine [Clozaril] 50 mg tablet 75 mg PO DAILY Qty: 30 0RF Discharge Orders: Discharge Order (Routine); Ordered 01/15/24 Ordered By: Geraldo Garcia Activity on Discharge: As tolerated Stand Alone Forms: Patient Portal Discharge page Print Language: Stateless Care Plan Goals: . Health Concerns: . Plan of Treatment: . Assessment: . Discharge Date/Time: 01/15/24 14:08
[2024-01-15 14:12] LABS: VBG Base Excess 0.6 mmol/L; VBG HCO3 23 mmol/L (22-26); VBG pCO2 31 mmHg; VBG pH 7.47 (7.32-7.43); VBG pO2 44 mmHg
[2024-01-15 14:12] LABS: Venous Blood Gas Refer to POC result
[2024-01-15 14:16] LABS: Ammonia 18 umol/L (13-55); Basophils Percent Auto 0.3 % (0-2); Hematocrit 40.5 % (42.0-52.0); Imm Gran Abs Auto 0.05 X10*3/uL (0.00-0.03); Imm Gran Pct Auto 0.5 % (0.0-0.4); Lymphocytes Absolute Auto 0.5 X10*3/uL (1.2-4.9); Lymphocytes Percent Auto 5.6 % (20-40); Mean Corpuscular HGB Conc 32.1 g/dl (31.0-36.0); Mean Corpuscular Hemoglobin 27.3 pg (27.0-33.0); Mean Corpuscular Volume 84.9 fL (80.0-98.0); Mean Platelet Volume 12.1 fL (9.4-12.4); Monocytes Percent Auto 10.4 % (2-11); Neutrophils Absolute Auto 7.9 x10*3/uL (2.0-8.3); Neutrophils Percent Auto 83.2 % (45-73); Platelet Count 132 X10*3/uL (160-400); Red Blood Count 4.77 X10*6/uL (4.60-5.80); Red Cell Distribution Width 15.1 % (11.0-16.0); White Blood Count 9.5 X10*3/uL (4.8-10.8)
[2024-01-15 14:17] LABS: D Dimer High Sensitivity 397 NG/ML
[2024-01-15 14:20] LABS: Lactic Acid 1.8 mmol/L (0.5-2.0)
[2024-01-15 14:25] LABS: Alanine Aminotransferase 20 U/L (0-40); Albumin Level 3.8 g/dL (3.5-5.0); Alkaline Phosphatase 64 U/L (39-117); Anion Gap 16 (12-20); Aspartate Amino Transferase 16 U/L (5-37); Bilirubin Total 0.5 mg/dL (0.0-1.0); Blood Urea Nitrogen 26 mg/dL (9-16); C Reactive Protein 15.67 mg/dL (< or = 0.50); Calcium 9.5 mg/dL (8.4-10.2); Carbon Dioxide 23 mmol/L (22-29); Chloride 109 mmol/L (96-108); Estimated Glomerular Filt Rate 42; Glucose Random 128 mg/dL (60-115); Potassium 3.8 mmol/L (3.3-5.1); Sodium 144 mmol/L (135-145); Total Protein 7.7 g/dL (6.5-8.0)
[2024-01-15 14:32] LABS: B Type Natriuretic Peptide 308 pg/mL (<100); Troponin-I High Sensitivity 57.5 ng/L (<3.5-35.0)
[2024-01-15 14:46] LABS: TSH reflex Free T4 0.19 uIU/mL (0.32-4.0)
[2024-01-15 15:27] LABS: Free T4 (Free Thyroxine) 1.01 ng/dL (0.71-1.85)
[2024-01-16 07:06] LABS: Glucose, Whole Blood 137 mg/dL (60-115)
[2024-01-17 07:27] LABS: Glucose, Whole Blood 123 mg/dL (60-115)
[2024-01-17 14:18] LABS: Venous Blood Gas Refer to POC result
[2024-01-20 06:34] LABS: Norclozapine 305 mcg/L (25-400)
[2024-01-20 07:29] LABS: Clozapine (Clozaril) 1721
== END 2024-01-15 14:08 | disposition other institution (70) | DRG 750 ==
PROVIDERS: Clinical Nurse Specialist Psychiatric/Mental Health, Adult; Internal Medicine Critical Care Medicine; Physician Assistant; Admitting Provider Psychiatry & Neurology Psychiatry; Visit Provider Psychiatry & Neurology Psychiatry
DX: F25.0 Schizoaffective disorder, bipolar type (principal); R45.851 Suicidal ideations; E11.9 Type 2 diabetes mellitus without complications; I10 Essential (primary) hypertension; N40.0 Benign prostatic hyperplasia without lower urinary tract symptoms; G47.33 Obstructive sleep apnea (adult) (pediatric); J44.9 Chronic obstructive pulmonary disease, unspecified; Z87.891 Personal history of nicotine dependence; Z79.4 Long term (current) use of insulin; Z79.82 Long term (current) use of aspirin; Z79.899 Other long term (current) 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
CPT/HCPCS: 36415; 71045; 74018; 80053; 80061; 80159; 82140; 82272; 82803; 82947; 83036; 83605; 83880; 84439; 84443; 84484; 85025; 85048; 85379; 86140; 87040; 93005; 94799; 97161

== ENCOUNTER → 2024-01-09 12:31 | Outpatient (BNV) | payer OTHER, SELFPAY | PROVIDERS: Admitting Provider Psychiatry & Neurology Psychiatry; Visit Provider Psychiatry & Neurology Psychiatry | DX: F25.0 Schizoaffective disorder, bipolar type (principal); E11.9 Type 2 diabetes mellitus without complications; N40.1 Benign prostatic hyperplasia with lower urinary tract symptoms; R35.0 Frequency of micturition; I10 Essential (primary) hypertension | CPT/HCPCS: 90792; 99231; 99232; 99238 ==

== ENCOUNTER 2024-01-15 14:14 | Outpatient (BNV) | payer OTHER, SELFPAY | END 2024-01-16 07:00 | PROVIDERS: Admitting Provider Physician Assistant; PCP Internal Medicine; Visit Provider Internal Medicine Cardiovascular Disease | DX: I51.7 Cardiomegaly (principal) | CPT/HCPCS: 93308; 93321 ==

== ENCOUNTER 2024-01-15 14:14 | Inpatient (IN) | payer OTHER, SELFPAY ==
--- NOTE | ~2024-01-15 | CT_ITS ---
EXAMINATION: CT ABDOMEN AND PELVIS WITH CONTRAST CLINICAL INFORMATION: 59-year-old male with questionable colitis or bowel obstruction COMPARISON: 01/01/2024 TECHNIQUE: Multidetector volumetric images were obtained from the superior aspect of the liver through the pubic symphysis following administration 85 mL of Omnipaque 350 intravenous contrast. Sagittal and coronal reformatted images were obtained on the technologist's workstation. Oral contrast: No This CT examination was performed using dose optimization techniques as appropriate, variously including the following: *Automated exposure control *Adjustment of mA and/or kV according to patient size (this includes techniques or standardized protocols for targeted exams where dose is matched to indication/reason for exam; i.e. extremities or head) *Use of iterative reconstruction technique DLP: 557 mGy-cm FINDINGS: LUNG BASES: The visualized lung bases are unremarkable. LIVER, GALLBLADDER, AND BILIARY TREE: The liver is normal in size, shape, and attenuation. No focal hepatic lesion or biliary ductal dilatation is present. Seen on the prior examination air in the portal venous system of left lobe has been resolved. The gallbladder is unremarkable with no evidence of radiopaque gallstones, gallbladder wall thickening, or obvious pericholecystic inflammatory changes. PANCREAS: Unremarkable. SPLEEN: Spleen is mildly enlarged, measured 13 cm. ADRENAL GLANDS: Unremarkable. KIDNEYS AND URETERS: There is fullness of collecting system of both kidneys without hydroureteronephrosis. BLADDER: Unremarkable. GASTROINTESTINAL TRACT: Stomach and loops of small bowel decompressed. No evidence of bowel obstruction. Colonic loops and appendix are normal. ABDOMINAL WALL: Mesentery is unremarkable. There is fat-containing ventral hernia to the right with the hiatus measured 3.2 cm LYMPH NODES: Normal. VASCULAR: Unremarkable. PELVIC VISCERA: Unremarkable. OSSEOUS STRUCTURES: Unremarkable. CT/CT abdomen pelvis w IV con IMPRESSION: 1. No evidence of bowel obstruction, resolution of small bowel obstruction seen on the previous study with resolution of portal venous gas 2. Mild splenomegaly. 3. Fat-containing ventral hernia. Fleischner guidelines were followed.
--- NOTE | ~2024-01-15 | NM_ITS ---
EXAMINATION: PULMONARY PERFUSION STUDY CLINICAL INFORMATION: Tachycardia, elevated d-dimer. COMPARISON: No previous lung scan is available for comparison. A radiograph of the chest dated 01/15/2024, the same date as this lung scan, is available for comparison. CT scan of the abdomen and pelvis dated 01/01/2024 is available for comparison. TECHNIQUE: Following the intravenous injection of 3.0 mCi Tc-99m MAA, the lungs were imaged in the anterior and posterior, left and right lateral and INDONESIAN, TORRES, LPO, and RPO projections using a gamma scintillation camera. FINDINGS: No segmental perfusion defects are present. There is homogeneous distribution of activity bilaterally. There are no focal anatomic appearing perfusion defects present. The cardiac silhouette and mediastinum are moderately dilated. The CT scan dated 01/01/2024 shows a prominent pericardial fat pad likely accounts for the prominence of the cardiac silhouette described above on this lung scan. NM/NM pul perfusion IMPRESSION: Very low probability of pulmonary embolism.
--- NOTE | ~2024-01-15 | CT_ITS ---
EXAMINATION: CT HEAD WITHOUT CONTRAST CLINICAL INFORMATION: Altered mental status. COMPARISON: None available. TECHNIQUE: Contiguous axial imaging was performed from the skull base to vertex without intravenous administration of contrast. This CT examination was performed using dose optimization techniques as appropriate, variously including the following: *Automated exposure control *Adjustment of mA and/or kV according to patient size (this includes techniques or standardized protocols for targeted exams where dose is matched to indication/reason for exam; i.e. extremities or head) *Use of iterative reconstruction technique DLP: 882 mGy-cm FINDINGS: No evidence of intracranial hemorrhage, extra-axial surface collection, focal mass effect or midline shift. Mild parenchymal volume loss with commensurate prominence of ventricles and sulci. No hydrocephalus. The brainstem and cerebellum are unremarkable. The lmkg-ceroq-[id number] matter differentiation is maintained. No evidence of an acute major vascular territory infarction. The calvarium is intact. There appears to be mild amount mucus along the pearce of the partially visualized left maxillary sinus. The mastoid air cells are well aerated. The temporomandibular joints are normal. There are scleral buckle devices of each globe. CT/CT head/brain wo IV con IMPRESSION: No acute intracranial pathology.
--- NOTE | ~2024-01-15 | XR_ITS ---
EXAMINATION: XR CHEST CLINICAL INFORMATION: Cough. COMPARISON: 01/15/2024 TECHNIQUE: Frontal view of the chest was obtained. FINDINGS: The lung volumes are low. The cardiomediastinal silhouette is stable. There is no focal lung consolidation or pleural effusion. The bony structures and soft tissues are unremarkable. XR/XR chest 1V IMPRESSION: No acute cardiopulmonary process. No significant interval change.
--- NOTE | ~2024-01-15 | CT_ITS ---
EXAMINATION: CT CHEST, ABDOMEN AND PELVIS WITHOUT CONTRAST CLINICAL INFORMATION: Reason for Exam ? Infectious Process. COMPARISON: Portions of previous CT 01/16/24. TECHNIQUE: Multidetector CT of the chest, abdomen and pelvis. The patient received: Oral contrast: No Intravenous contrast: None No contrast reaction reported Sagittal and coronal reformatted images were obtained on the technologist workstation. This CT examination was performed using dose optimization techniques as appropriate, variously including the following: *Automated exposure control *Adjustment of mA and/or kV according to patient size (this includes techniques or standardized protocols for targeted exams where dose is matched to indication/reason for exam; i.e. extremities or head) *Use of iterative reconstruction technique Total exam dose-length product 2347 mGy-cm FINDINGS: There is marked motion artifact. This limits the exam. DIGITAL QUALITY ASSURANCE ASSOCIATE: Devices overlie the patient. There is rotation. There is gaseous distention. CHEST: Lung: There is collapse of the distal trachea and mainstem bronchi. This may be expiratory results. There are extensive groundglass opacities throughout both lungs. Motion precludes assessment for mass/nodules. Pleura: No pneumothorax. No large pleural fluid collection. Mediastinum: No convincing adenopathy. The esophagus is within normal limits. Vascular: No definite coronary calcification. No thoracic aortic aneurysm. The main pulmonary artery is markedly dilated. Trace amount pericardial fluid/thickening. Chest Wall/Axilla: No axillary or internal mammary lymphadenopathy. ABDOMEN/PELVIS: Liver, Gallbladder, And Biliary Tree: No large abnormality in the liver. No distention of the gallbladder. No definite biliary dilation. Pancreas: No large abnormality. Spleen: No suspicious abnormality Adrenal Glands: Within normal limits Kidneys And Ureters: There is some dilation of the intrarenal collecting system side. Bowel is closely related to the right renal pelvis. Gastrointestinal Tract: There is a rectal catheter. There is a large amount of fecal residue within the distal colon. Motion limits assessment. No evidence of high-grade bowel obstruction. The motion precludes assessment for pneumatosis. No CT evidence of acute appendicitis Abdominal Wall: There is a fat-containing midline ventral hernia. Lymphovascular Structures And Fluid: There is no abdominal aortic aneurysm. Bladder: There is a bladder catheter. The bladder is nearly empty. The catheter may account for small amounts of gas. Pelvic Viscera: The prostate is not well visualized. Musculoskeletal: No acute or suspicious osseous abnormality. CT/CT abdomen pelvis wo IV con IMPRESSION: Study is limited. Motion precludes detail. There are extensive infiltrates throughout both lungs. No abscess. No pneumoperitoneum.
--- NOTE | ~2024-01-15 | CT_ITS ---
EXAMINATION: CT CHEST, ABDOMEN AND PELVIS WITHOUT CONTRAST CLINICAL INFORMATION: Reason for Exam ? Infectious Process. COMPARISON: Portions of previous CT 01/16/24. TECHNIQUE: Multidetector CT of the chest, abdomen and pelvis. The patient received: Oral contrast: No Intravenous contrast: None No contrast reaction reported Sagittal and coronal reformatted images were obtained on the technologist workstation. This CT examination was performed using dose optimization techniques as appropriate, variously including the following: *Automated exposure control *Adjustment of mA and/or kV according to patient size (this includes techniques or standardized protocols for targeted exams where dose is matched to indication/reason for exam; i.e. extremities or head) *Use of iterative reconstruction technique Total exam dose-length product 2347 mGy-cm FINDINGS: There is marked motion artifact. This limits the exam. DIGITAL AQUACULTURE FARM MANAGER: Devices overlie the patient. There is rotation. There is gaseous distention. CHEST: Lung: There is collapse of the distal trachea and mainstem bronchi. This may be expiratory results. There are extensive groundglass opacities throughout both lungs. Motion precludes assessment for mass/nodules. Pleura: No pneumothorax. No large pleural fluid collection. Mediastinum: No convincing adenopathy. The esophagus is within normal limits. Vascular: No definite coronary calcification. No thoracic aortic aneurysm. The main pulmonary artery is markedly dilated. Trace amount pericardial fluid/thickening. Chest Wall/Axilla: No axillary or internal mammary lymphadenopathy. ABDOMEN/PELVIS: Liver, Gallbladder, And Biliary Tree: No large abnormality in the liver. No distention of the gallbladder. No definite biliary dilation. Pancreas: No large abnormality. Spleen: No suspicious abnormality Adrenal Glands: Within normal limits Kidneys And Ureters: There is some dilation of the intrarenal collecting system side. Bowel is closely related to the right renal pelvis. Gastrointestinal Tract: There is a rectal catheter. There is a large amount of fecal residue within the distal colon. Motion limits assessment. No evidence of high-grade bowel obstruction. The motion precludes assessment for pneumatosis. No CT evidence of acute appendicitis Abdominal Wall: There is a fat-containing midline ventral hernia. Lymphovascular Structures And Fluid: There is no abdominal aortic aneurysm. Bladder: There is a bladder catheter. The bladder is nearly empty. The catheter may account for small amounts of gas. Pelvic Viscera: The prostate is not well visualized. Musculoskeletal: No acute or suspicious osseous abnormality. CT/CT chest wo IV con IMPRESSION: Study is limited. Motion precludes detail. There are extensive infiltrates throughout both lungs. No abscess. No pneumoperitoneum.
--- NOTE | ~2024-01-15 | CT_ITS ---
EXAMINATION: CT HEAD WITHOUT CONTRAST CLINICAL INFORMATION: Encephalopathy. COMPARISON: CT head 01/15/2024. TECHNIQUE: Contiguous axial imaging was performed from the skull base to vertex without intravenous administration of contrast. This CT examination was performed using dose optimization techniques as appropriate, variously including the following: *Automated exposure control *Adjustment of mA and/or kV according to patient size (this includes techniques or standardized protocols for targeted exams where dose is matched to indication/reason for exam; i.e. extremities or head) *Use of iterative reconstruction technique DLP: 1030 mGy-cm FINDINGS: Evaluation is limited by motion. There is no evidence of acute intracranial hemorrhage or edematous territorial infarction. A few foci of hypoattenuation in the periventricular and deep white matter are consistent with mild microangiopathy. Bello-white matter differentiation is preserved. Proportional prominence of the ventricles and sulcal spaces. No evidence for obstructive hydrocephalus. No abnormal mass effect or midline shift. No extra-axial fluid collections. No acute soft tissue or osseous abnormalities. Moderate to severe mucoperiosteal thickening of the paranasal sinuses. No air-fluid levels. The mastoids and middle ear cavities are clear. Patient is edentulous. Suspect bilateral exophthalmos. CT/CT head/brain wo IV con IMPRESSION: 1. Evaluation is limited by motion. However, accounting for these limitations, there is no evidence of acute intracranial hemorrhage or edematous territorial infarction. 2. Paranasal sinus disease. 3. Possible bilateral exophthalmos, correlate with physical examination.
--- NOTE | ~2024-01-15 | FL_ITS ---
EXAMINATION: XR LUMBAR PUNCTURE CLINICAL INFORMATION: Mental status changes COMPARISON: None available. TECHNIQUE: The skin was prepped and draped in the usual fashion. 1% Xylocaine was used for local anesthetic. Under fluoroscopic guidance a 20-gauge Chiba needle was placed at the L4-L5 level into the thecal sac. Opening pressures were 0 to 1 cm. 8 mL of clear CSF was collected. Closing pressure was 11 cm. FINDINGS: Lumbar puncture under fluoroscopic guidance FLUOROSCOPY TIME: DOSE AREA PRODUCT: uGy-m2 (microgray-meter squared) FL/FL guided lumbar puncture LP IMPRESSION: Lumbar puncture under fluoroscopic guidance
--- NOTE | 2024-01-15 14:18 | PM.IMHP ---
History of Present Illness Date of Service: 01/15/24 Attending physician on admission: Juan Boo Chief Complaint: ams 59-year-old male with history of insulin-dependent type 2 diabetes, hypertension, HOCM, hyperlipidemia, COPD, JUDY, constipation, and schizoaffective disorder admitted to Psychiatry with rapid response called due to patient seeming confused from baseline oriented x2 only. Pt noted to be diaphoretic and tachypneic. He was recently discharged from [facility] due to sbo and transferred to psychiatry for further management on 01/08. Etiology of patient's change in clinical condition is unclear. Upon rapid response, CBC was ordered showing stable normocytic anemia, no leukocytosis. VBG reassuring with pH 7.47, pCO2 31, bicarb 23. Chemistry studies are significant for an JUHI with creatinine 1.67, baseline around 1.1. BUN 26. Electrolyte levels normal. Troponin 57.5, BNP 308. CRP 15.67. TSH 0.19, free T4 pending. Clozaril level pending. COVID-19, influenza, RSV pending. KUB, head CT, CXR ordered and pending. EKG showed sinus tachycardia, rate 117, possible LVH with repolarization. No other ST/T-wave abnormality. No evidence of acute ischemic changes. Vital signs significant for tachycardia up to 132, tachypnea 246, no hypoxia or hypotension. Patient is afebrile. He will be transferred to [facility] for further evaluation of ams, and suddent onset tachycardia and tachypnea. Review of Systems Review of Systems: General: No fevers, malaise, unintentional weight loss HEENT: No blurred vision, diplopia. No sore throat, nasal congestion, rhinorrhea, sinus pain, ear pain Cardiovascular: No chest pain, palpitations, or leg edema Respiratory: No shortness of breath, wheezing, cough GI: No abdominal pain, nausea, vomiting, diarrhea, constipation, melena, hematochezia : No dysuria, hematuria, increased urinary frequency, decreased urinary output MSK: No myalgia, back pain Neuro: No headaches, weakness, paresthesias Skin: No rashes or lesions [facility] Medical History Congestive heart failure COVID-19 Thought disorder Nocturnal hypoxemia Constipation COPD (chronic obstructive pulmonary disease) JUDY (obstructive sleep apnea) Smoker BPH (benign prostatic hyperplasia) Diabetes mellitus Obesity (BMI 30-39.9) Pure hypercholesterolemia Prolonged QT interval Essential hypertension HOCM (hypertrophic obstructive cardiomyopathy) Aggression Hypertension Coronary artery disease CHF (congestive heart failure) Cardiac arrhythmia Myocardial infarction Schizoaffective disorder Family History Father Medical history unknown Mother Medical history unknown Sister Alive and well Surgical History History of ankle surgery History of intestinal surgery History of transurethral resection of prostate Social History Household Members: Other Household Members Other:: custodial Housing: House Housing Other:: gr. home Do you presently have visiting nurse or other home services: No Alcohol intake: never Comment: 1:1 sitter Patient Tobacco Use Status: Former Tobacco user Quit Date: Pt is unsure if ready to quit Tobacco use type: Cigarette Cigarette Packs Per Day: 0.5 Cigarettes Per Day: 10.0 Years Smoked: many e-Cigarette/Vaping Use: Never Used Patient Interested in Nicotine Replacement: Yes Use of substances other than those prescribed or required for medical reasons: No Substance Use Type: Unknown Currently Displaying Signs/Symptoms of Drug Intoxication Withdrawal: No Have you been hit, kicked, punched, or otherwise hurt by someone within the past year? If so, by whom?: No Do you feel safe in your current relationship?: Yes Is there a partner from a previous relationship who is making you feel unsafe now?: No Are you made to feel afraid or neglected: No Advance Directives: Yes Advance Directives on File: Yes Advance Directives Date on File: 01/14/24 Do you have thoughts of harming others: None Do you have a plan to hurt others: No Plan Recently lost weight without trying: No Nutrition Risks: No Nutritional Risk Poor oral hygiene: No service: No Current occupational status: disabled Sexual orientation: Straight/Heterosexual Cognitive needs: Yes Hearing needs: No Vision needs: Yes Meds Allergies Allergy/AdvReac Type Severity Reaction Status Date / Time lithium [[place]] Allergy Severe Toxicity Verified 01/10/24 05:05 thiothixene Allergy Severe Swelling Verified 01/10/24 05:05 benztropine Allergy Unknown benztropine Verified 12/30/23 15:59 mesylate- unknown gabapentin [From NEURONTIN] Allergy Unknown Unknown Verified 01/10/24 05:05 fluphenazine [From Prolixin] Allergy Unknown Verified 01/10/24 05:04 barium sulfate AdvReac Intermediate Nausea and Verified 01/10/24 05:05 [BARIUM SULFATE] Vomiting haloperidol AdvReac Intermediate Muscle Verified 01/10/24 05:05 tension in legs diphenhydramine AdvReac Unknown urinary Verified 01/10/24 05:05 [From Benadryl] retention Active Medications: Current Medications Acetaminophen (Acetaminophen 325 Mg Tablet) 650 mg PO Q6H PRN PRN Reason: Pain, Mild (Pain Scale 1-3) Al Hydroxide/Mg Hydroxide (Magnesium Hydrox/Alum Hydrox 30 Ml Oral.Susp) 10 ml PO TID PRN PRN Reason: Indigestion Albuterol Sulfate (Albuterol Sulfate 90 Mcg 8 Gm Inhaler) 2 puff INHALE Q6H PRN PRN Reason: Shortness Of Breath Or Wheezing Aspirin (Aspirin Enteric Coated 81 Mg Tablet.Dr) 81 mg PO DAILY@0800 [facility] Atorvastatin Calcium (Atorvastatin Calcium 20 Mg Tablet) 20 mg PO DAILY@1999 [facility] Clozapine (Clozapine 25 Mg Tablet) 225 mg PO DAILY [facility] Docusate Sodium (Docusate Sodium 100 Mg Capsule) 100 mg PO BID@799,1999 [facility] Furosemide (Furosemide 20 Mg Tablet) 20 mg PO DAILY@0800 [facility]; Protocol Insulin Human Lispro (Insulin Lispro 100 Unit/Ml 3 Ml Vial) 0 unit SUBCUT QIDACHS [facility]; Protocol Lorazepam (Lorazepam 1 Mg Tablet) 1 mg PO BID [facility] Lorazepam (Lorazepam 0.5 Mg Tablet) 0.5 mg PO DAILY@1999 [facility] Losartan Potassium (Losartan Potassium 25 Mg Tablet) 25 mg PO DAILY@0800 [facility]; Protocol Lurasidone HCl (Lurasidone Hcl 20 Mg Tablet) 60 mg PO DAILY@0800 [facility] Magnesium Hydroxide (Milk Of Magnesia 30 Ml Oral.Susp) 30 ml PO DAILY PRN PRN Reason: Constipation Metoprolol Succinate (Metoprolol Succinate Er 50 Mg Tab.Er.24h) 50 mg PO BID@0800,1999 [facility]; Protocol Nicotine (Nicotine 21 Mg Patch.Td24) 21 mg TRANSDERMA DAILY PRN PRN Reason: smoking cessation Nicotine Polacrilex (Nicotine Polacrilex 2 Mg Gum) 4 mg BUCCAL Q2H PRN PRN Reason: Nicotine Cravings Olanzapine (Olanzapine 5 Mg Tablet) 5 mg PO TID PRN PRN Reason: agitation Omeprazole (Omeprazole 20 Mg Capsule.Dr) 20 mg PO BID@0630,1630 [facility] Polyethylene Glycol (Polyethylene Glycol 3350 17 Gm Powd.Pack) 17 gm PO DAILY PRN PRN Reason: Constipation Polyethylene Glycol (Polyethylene Glycol 3350 17 Gm Powd.Pack) 17 gm PO DAILY [facility] Senna/Docusate Sodium (Sennosides/Docusate Sodium Tablet) 2 tab PO DAILY [facility] Tamsulosin HCl (Tamsulosin Hcl 0.4 Mg Capsule) 0.4 mg PO DAILY@1999 [facility] Trazodone HCl (Trazodone Hcl 50 Mg Tablet) 50 mg PO DAILY@1999 [facility] Trazodone HCl (Trazodone Hcl 50 Mg Tablet) 50 mg PO BEDTIME MRX1 PRN PRN Reason: Insomnia Vitamin D (Cholecalciferol (Vitamin D3) 25 Mcg Tablet) 25 mcg PO DAILY@0800 [facility] Home Medications ?Medication ?Instructions ?Recorded ?Confirmed ?Last Taken ?Type docusate sodium 100 mg capsule 1 cap PO BID@0800,199908/18/22 01/15/24 01/15/24 History atorvastatin 20 mg tablet 20 mg PO DAILY@199904/20/23 01/15/24 12/29/23 History lorazepam 0.5 mg tablet 0.5 mg PO DAILY@199904/20/23 01/15/24 12/29/23 History lorazepam 1 mg tablet 1 mg PO BID@0800,159904/20/23 01/15/24 01/15/24 History albuterol sulfate 90 mcg/actuation 2 puff inhalation Q6H PRN 10/10/23 01/15/24 Unknown History aerosol inhaler Shortness Of Breath Or Wheezing aspirin 81 mg tablet,delayed 81 mg PO DAILY@79910/10/23 01/15/24 01/15/24 History release losartan 25 mg tablet 25 mg PO DAILY@79911/03/23 01/15/24 01/15/24 History lurasidone 60 mg tablet 60 mg PO DAILY@79911/03/23 01/15/24 01/15/24 History trazodone 50 mg tablet 50 mg PO DAILY@199911/03/23 01/15/24 12/29/23 History aluminum-mag hydroxide-simethicone 10 ml PO TID PRN Indigestion 12/31/23 01/15/24 Unknown History 200 mg-200 mg-20 mg/5 mL oral susp furosemide 20 mg tablet 20 mg PO DAILY@0800 12/31/23 01/15/24 01/15/24 History metoprolol succinate 50 mg 50 mg PO BID@08,199912/31/23 01/15/24 01/15/24 History tablet,extended release 24 hr polyethylene glycol 3350 17 17 g PO DAILY PRN Constipation 12/31/23 01/15/24 Unknown History gram/dose oral powder (Miralax) acetaminophen 650 mg 650 mg PO Q6H PRN Pain, Mild 01/15/24 01/15/24 Unknown History tablet,extended release nicotine (polacrilex) 4 mg gum 4 mg buccal Q2H PRN Smoking 01/15/24 01/15/24 Unknown History Cessation nicotine 21 mg/24 hr daily 1 patch transdermal DAILY PRN 01/15/24 01/15/24 Unknown History transdermal patch Smoking Cessation olanzapine 5 mg tablet 5 mg PO TID PRN Agitation 01/15/24 01/15/24 Unknown History tamsulosin 0.4 mg capsule 0.4 mg PO DAILY 01/15/24 01/15/24 Unknown History trazodone 50 mg tablet 50 mg PO BEDTIME PRN Insomnia 01/15/24 01/15/24 Unknown History Physical Exam Vital Signs and Narrative: Constitutional - Awake and Alert, No apparent distress Eyes - PERRLA, EOMI Cardiovascular - S1S2, regular rhythm, tachycardic, No edema Respiratory - Normal lung expansion, Normal respiratory effort, No respiratory distress, CTA bilaterally Gastrointestinal - NT / ND; +BS; No rebound or guarding Extremities - no calf tenderness bilaterally, no swelling Skin - Warm, diaphoretic Neurological - Alert & oriented to person and place. CN II-XII in tact. strenght in tact Assessment and Plan (1) Acute metabolic encephalopathy: Status: Acute (2) JUHI (acute kidney injury): Status: Acute Plan 59-year-old male with history of insulin-dependent type 2 diabetes, hypertension, HOCM, hyperlipidemia, COPD, JUDY, constipation, and schizoaffective disorder admitted to Psychiatry with rapid response called due to patient seeming confused from baseline oriented x2 only. Pt noted to be diaphoretic and tachypneic. He will be admitted for further evaluation and management of AMS with tachycardia and tachypnea of unclear etiology. #Acute metabolic encephalopathy -etiology unclear -Labs unremarkable thus far except for JUHI but no uremia and slightly elevated trop -head CT, KUB, UA/UC, covid/flu/rsv pending. VQ scan pending -monitor mentation #Elevated trop -etiology unclear. denies cp. EKG nonischemic -Initial trop 51--> 104. Repeat trop am -VQ scan negative for PE. Negative for covid/flu/rsv. Vitals stable -per cardiology, no AC at this time -monitor on telemetry #Tachypnea, diaphoresis- resolved -orders as above #Acute kidney injury- etiology unclear -creat 1.68, baseline 1.1, bun 26 -urine creat, urine sodium pending. UA/UC pending. KUB pending -Continue ivf -avoid nephrotoxins -follow renal function/lytes #Hisotry sbo -abd exam benign -KUB shows possible ileus vs partial SBO -keep npo, general surgery consult #HTN -hold arb due to juhi. continue bb #HOCM - TTE 10/10/23: - Normal left ventricular cavity size. There is severely increased left ventricular wall thickness. The left ventricular systolic function is hyperdynamic. The visually estimated ejection fraction is >70%. - Dynamic LVOT obstruction noted. No obvious CON seen as before. Resting LVOT peak gradient 40 mm Hg, post valsalva 123 mm Hg. This is significantly worse than previous study. - Normal right ventricular cavity size and systolic function. - The left atrium is severely dilated. - Mildly elevated right atrial pressure. - There is mild dilatation of the sinuses of Valsalva measuring 4.00 cm and mild dilatation of the ascending aorta measuring 3.90 cm. -contiue lasix #CAD - continue ASA, atorvastatin, metoprolol succinate #Insulin dependent type 2 diabetes -poc glucose, diabetic diet -admelog on ssi DVT prophylaxis- lovenox full code pt requires inpt stay at least 2 midnights for management of acute metabolic encephalopathy and JUHI with persistent tachycardia and tachypnea of unclear etiology requiring close monitoring of mentation and further evaluation of etiology of symptoms Quality Stroke Does the patient have a stroke diagnosis?: No VTE Prior VTE?: No VTE Risk Level:: Medical - moderate - high VTE Device Contraindication: Treatment Not Indicated VTE Drug Contraindication: N/A - Med Ordered
[2024-01-15 15:04] VITALS: BMI 34.3
[2024-01-15 16:32] VITALS: BP 126/68; PULSE 100; RESP 16; TEMP 37.1; O2SAT 96
[2024-01-15] MEDS: Enoxaparin Sodium 40 MG/0.4 ML SYRINGE SUBCUT (16:34)
[2024-01-15] MEDS: Omeprazole 20 MG CAPSULE.DR PO (16:34)
[2024-01-15] MEDS: 0.9 % Sodium Chloride Flush 3 ML SYRINGE IVFLUSH (16:35)
[2024-01-15] MEDS: 0.9 % Sodium Chloride 1,000 ML 100 ML IVCONT (16:38)
--- NOTE | 2024-01-15 17:12 | PHA.MEDREC ---
Pharmacy Consult ? Medication Reconciliation Pharmacy has completed the medication reconciliation. Patient was transferred from to [facility] so used the med list from .
[2024-01-15 17:26] LABS: Glucose, Whole Blood 153 mg/dL (60-115)
[2024-01-15] MEDS: Insulin Lispro 100 UNIT/ML 3 ML VIAL SUBCUT (17:41)
[2024-01-15 18:06] LABS: Troponin-I High Sensitivity 104.7 ng/L (<3.5-35.0)
--- NOTE | 2024-01-15 18:17 | ECG_ITS ---
Test Reason : elevated trop Blood Pressure : / mmHG Vent. Rate : 100 BPM Atrial Rate : 100 BPM P-R Int : 150 ms QRS Dur : 100 ms QT Int : 386 ms P-R-T Axes : 094 036 143 degrees QTc Int : 497 ms Normal sinus rhythm Left ventricular hypertrophy with repolarization abnormality ( Sokolow-Vences ) Prolonged QT Abnormal ECG When compared with ECG of 15-JAN-2024 13:37, T wave inversion no longer evident in Inferior leads Referred By: Juan Boo Electronically Signed By:JEREMIAS MARTIN MD
[2024-01-15 18:37] LABS: Influenza A PCR NEGATIVE (Negative); Influenza B PCR NEGATIVE (Negative); Resp Syncy Virus RNA Qual PCR NEGATIVE (Negative); SARS COV2 PCR INHOUSE NEGATIVE (Negative)
--- NOTE | 2024-01-15 18:41 | P.PNGS_ITS ---
Subjective Subjective Date of Service: 01/15/24 Interval history: PATIENT HAD A RAPID RESPONSE CALLED TODAY IN THAT HE WAS not quite himself little more confused. Question of whether there was a new intra-abdominal process going on although other than being a little distended no other concerns were voiced. He denied any abdominal pain. He says he has been going to the bathroom passing stool without a problem. He is hungry. Physical Exam Vital Signs: Vital Signs: Last Vital Signs Temp 98.7 F 01/15/24 16:32 Pulse 100 01/15/24 16:32 Resp 16 01/15/24 16:32 BP 126/68 01/15/24 16:32 Pulse Ox 96 01/15/24 16:32 O2 Del Method Room Air 01/15/24 16:32 BMI result Body Mass Index 34.3 Const: General: cooperative, healthy appearing, comfortable and no acute distress GI: Other: Abdomen is soft nontender active bowel sounds it is distended but not quite tympanitic Objective Data Active Medications Acetaminophen (Acetaminophen 325 Mg Tablet) 650 mg PO Q6H PRN PRN Reason: Pain, Mild (Pain Scale 1-3) Al Hydroxide/Mg Hydroxide (Magnesium Hydrox/Alum Hydrox 30 Ml Oral.Susp) 10 ml PO TID PRN PRN Reason: Indigestion Albuterol Sulfate (Albuterol Sulfate 90 Mcg 8 Gm Inhaler) 2 puff INHALE Q6H PRN PRN Reason: Shortness Of Breath Or Wheezing Aspirin (Aspirin Enteric Coated 81 Mg Tablet.) 81 mg PO DAILY@0800 [facility] Atorvastatin Calcium (Atorvastatin Calcium 20 Mg Tablet) 20 mg PO DAILY@1999 [facility] Clozapine (Clozapine 100 Mg Tablet) 200 mg PO DAILY [facility] Docusate Sodium (Docusate Sodium 100 Mg Capsule) 100 mg PO BID@799,1999 [facility] Enoxaparin Sodium (Enoxaparin Sodium 40 Mg/0.4 Ml Syringe) 40 mg SUBCUT Q24H [facility] Last Admin: 01/15/24 16:34 Dose: 40 mg Documented By: YESI Furosemide (Furosemide 20 Mg Tablet) 20 mg PO DAILY@0800 [facility]; Protocol Glucose (Glucose Gel 15 Gm Gel..Gram.) 15 gm PO Q15M PRN; Protocol PRN Reason: per Hypoglycemia Standing Ord. Sodium Chloride (Ns) 1,000 mls @ 100 mls/hr IVCONT .Q10H [facility] Last Admin: 01/15/24 16:38 Dose: 100 mls/hr Documented By: YESI Dextrose (D10) 250 mls @ 750 mls/hr IV Q15M PRN; Protocol PRN Reason: per Hypoglycemia Standing Ord. Insulin Human Lispro (Insulin Lispro 100 Unit/Ml 3 Ml Vial) 0 unit SUBCUT QIDACHS [facility]; Protocol Last Admin: 01/15/24 17:41 Dose: 2 unit Documented By: YESI Lorazepam (Lorazepam 1 Mg Tablet) 1 mg PO BID [facility] Lorazepam (Lorazepam 0.5 Mg Tablet) 0.5 mg PO DAILY@1999 [facility] Losartan Potassium (Losartan Potassium 25 Mg Tablet) 25 mg PO DAILY@08 [facility]; Protocol Lurasidone HCl (Lurasidone Hcl 20 Mg Tablet) 60 mg PO DAILY@08 [facility] Magnesium Hydroxide (Milk Of Magnesia 30 Ml Oral.Susp) 30 ml PO DAILY PRN PRN Reason: Constipation Metoprolol Succinate (Metoprolol Succinate Er 50 Mg Tab.Er.24h) 50 mg PO BID@08,1999 [facility]; Protocol Nicotine (Nicotine 21 Mg Patch.Td24) 21 mg TRANSDERMA DAILY PRN PRN Reason: smoking cessation Nicotine Polacrilex (Nicotine Polacrilex 2 Mg Gum) 4 mg BUCCAL Q2H PRN PRN Reason: Nicotine Cravings Olanzapine (Olanzapine 5 Mg Tablet) 5 mg PO TID PRN PRN Reason: agitation Omeprazole (Omeprazole 20 Mg Capsule.Dr) 20 mg PO BID@0630,1630 [facility] Last Admin: 01/15/24 16:34 Dose: 20 mg Documented By: YESI Ondansetron HCl (Ondansetron Hcl 4 Mg/2 Ml Vial) 4 mg IVPUSH Q8H PRN PRN Reason: Nausea and Vomiting Polyethylene Glycol (Polyethylene Glycol 3350 17 Gm Powd.Pack) 17 gm PO DAILY PRN PRN Reason: Constipation Polyethylene Glycol (Polyethylene Glycol 3350 17 Gm Powd.Pack) 17 gm PO DAILY [facility] Senna/Docusate Sodium (Sennosides/Docusate Sodium Tablet) 2 tab PO DAILY [facility] Sodium Chloride (0.9 % Sodium Chloride Flush 3 Ml Syringe) 3 ml IVFLUSH QSHIFT [facility] Last Admin: 01/15/24 16:35 Dose: 3 ml Documented By: YESI Tamsulosin HCl (Tamsulosin Hcl 0.4 Mg Capsule) 0.4 mg PO DAILY@1999 [facility] Trazodone HCl (Trazodone Hcl 50 Mg Tablet) 50 mg PO DAILY@1999 [facility] Trazodone HCl (Trazodone Hcl 50 Mg Tablet) 50 mg PO BEDTIME MRX1 PRN PRN Reason: Insomnia Vitamin D (Cholecalciferol (Vitamin D3) 25 Mcg Tablet) 25 mcg PO DAILY@0800 [facility] Labs Labs: Laboratory Results - last 24 hr 01/15/24 01/15/24 01/15/24 17:20 17:22 17:31 POC Glucose 153 H Troponin I High Sens 104.7 H* D Influenza Type A (PCR) NEGATIVE Influenza Type B (PCR) NEGATIVE RSV RNA Qual (PCR) NEGATIVE SARS-CoV-2 RNA (RT-PCR) NEGATIVE Imaging Abdominal x-ray: Radiologist's impression: [place] [id number] XRay Report Signed Patient: Navid Carvalho MR#: [id number] : 1965 Acct:[id number] Age/Sex: 59 / M ADM Date: 01/09/24 Loc: .PM5 514-[address]: Geraldo Garcia MD Ordering Physician: Wilda Flor Date of Service: 01/15/24 Procedure(s): XR KUB Accession Number(s): [id number] cc: Physician,Unknown ; Wilda Flor~ EXAMINATION: XR CHEST XR KUB CLINICAL INFORMATION: Altered mental status. Prior small bowel obstruction. COMPARISON: KUB from 01/06/2024. CXR from 12/31/2023. TECHNIQUE: Chest radiograph, AP view Abdomen, AP view FINDINGS: CHEST: EKG wires overlie the chest. Lungs are mildly hypoinflated and without evidence of acute disease. No pulmonary consolidation, pleural effusion or pneumothorax. Cardiomediastinal silhouette has stable size and contour. The visualized bones are intact. ABDOMEN: Stomach is unremarkable. There is an increased amount of gas within loops of bowel compared to 01/06/2024. There is gas within the nondilated colon and rectum. No evidence of pneumatosis intestinalis or pneumoperitoneum. No urinary tract calculi. The visualized bones of the lumbar spine and pelvis are intact. Mild osteoarthrosis of the hips. There is a bone island of the proximal right femur. XR/XR KUB IMPRESSION: * No evidence of pneumonia. No acute pulmonary disease compared to 12/31/2023. * Abnormal but nonspecific bowel gas pattern. There appears to be an increased amount of gas within the bowel loops. Findings could represent mild ileus or partial small bowel obstruction. Dictated By: Xavier Hays MD Signed By: <Electronically signed by Xavier Hays MD in OV> 01/15/24 1647 DD/ 1619 TD/TT: Outbound Telemarketing Representative: PD Impressions Pulmonary Perfusion Imaging 01/15/24 15:45 IMPRESSION: Very low probability of pulmonary embolism. Head CT 01/15/24 16:14 IMPRESSION: No acute intracranial pathology. Procedures Date of Service Date of Service: 01/15/24 Progress Note: A&P Assessment and plan (1) Ileus: Status: Acute Assessment and Plan: Patient may have a little bit of an ileus secondary to his psych meds and not moving around as much. Continue on a bowel regimen would really facilitate having him up and walking and moving. If he becomes uncomfortable or symptomatic can decrease his p.o. intake to liquid diet for little bit. Reviewing his films of his abdominal exam doubt anything concerning or necessitating surgery is required. He seems competent and with it enough to give a good history. We will follow along Time Spent With Patient Time: Total time managing care of this patient today ____ minutes. Quality Stroke Does the patient have a stroke diagnosis?: No VTE Prior VTE?: No VTE Risk Level:: Medical - moderate - high VTE Device Contraindication: Treatment Not Indicated VTE Drug Contraindication: N/A - Med Ordered
[2024-01-15 19:40] VITALS: BP 90/70; PULSE 95; RESP 16; TEMP 36.6; O2SAT 93
[2024-01-15] MEDS: LORazepam 1 MG TABLET PO (21:04)
[2024-01-15] MEDS: Atorvastatin Calcium 20 MG TABLET PO (21:04)
[2024-01-15] MEDS: traZODone HCL 50 MG TABLET PO (21:04)
[2024-01-15] MEDS: LORazepam 0.5 MG TABLET PO (21:05)
[2024-01-15] MEDS: Tamsulosin HCL 0.4 MG CAPSULE PO (21:05)
[2024-01-15] MEDS: Docusate Sodium 100 MG CAPSULE PO (21:05)
[2024-01-15] MEDS: Albumin Human 25 % 100 ML IV (21:13)
[2024-01-15 22:48] LABS: Glucose, Whole Blood 128 mg/dL (60-115)
[2024-01-16] VITALS (8 sets, daily range): BP systolic 106–166; BP diastolic 67–85; PULSE 96–113; RESP 16–20; TEMP 36.1–37.9; O2SAT 93–100
[2024-01-16] MEDS: 0.9 % Sodium Chloride Flush 3 ML SYRINGE IVFLUSH ×4 (00:01→21:41)
[2024-01-16] MEDS: 0.9 % Sodium Chloride 1,000 ML 100 ML IVCONT ×3 (01:50→23:29)
--- NOTE | 2024-01-16 07:00 | CA_ITS ---
Transthoracic Echocardiogram Patient (Last, First, Middle): Navid Carvalho E Gender: Male Date of : 1965 Age: 59 Procedure Date: 01/16/2024 Procedure Type: Transthoracic Echocardiogram Location[place] [facility] [place] Height: 172.72 cm Weight: 102.06 kg BSA: 2.15 m2 Heart Rate: bpm BP: 116 / 85 mmHg Relations Manager: Referring MD: Juan Boo MD Roll Bucker: Marciano Zamora MD Symptoms: Tn-I elev, eval for WMAs Study Quality: Fair ECG Rhythm: Sinus with extra beats Conclusions: - Hyperdynamic LV systolic function with LVEF of greater than 70% with severe left ventricular hypertrophy without any obvious significant regional wall motion abnormality Findings Left Ventricle Normal left ventricular cavity size. There is severely increased left ventricular wall thickness. The left ventricular systolic function is hyperdynamic. The visually estimated ejection fraction is >70%. There is no evidence of regional wall motion abnormalities. Spectral Doppler is indicative of an impaired relaxation filling pattern. Prior Study Comparison No significant change compared to prior study. Measurements 2D Linear Measurements IVSd: 1.91 0.6-0.9/0.6-1.0 cm LVIDd: 3.56 3.9-5.3/4.2-5.9 cm LVIDd Index: 1.66 2.4-3.2/2.2-3.1 cm/m2 LVIDs: 2.11 2.0-3.6 cm LVPWd: 1.88 0.7-1.1 cm LV Mass: 366.03 67-162/88-224 g LV Mass Index: 170.24 43-95/49-115 g/m2 Mitral Valve MV Pk E: 0.57 MV PK A: 0.84 MV Decel Time: 138.00 E/A: 0.70 E'Lateral: 7.29 E'Medial: 3.92 E/E' Med: 14.50 E/E' Lat: 7.80 PHT: 41.00 MVA PHT: 5.37 Decel Bullitt: 4.12 Diastolic Function MV Pk E: 0.57 MV Pk A: 0.84 E/A: 0.70 E'Medial: 3.92 E/E' Med: 14.50 E' Laterial: 7.29 E/E' Lat: 7.80 Updated in Other Vendor System with Status of Final Marciano Zamora MD electronically signed on 01/16/2024 3:19:36 PM with status of Final
[2024-01-16] MEDS: Omeprazole 20 MG CAPSULE.DR PO ×2 (07:15→18:44)
[2024-01-16 07:30] LABS: Glucose, Whole Blood 144 mg/dL (60-115)
[2024-01-16] MEDS: Furosemide 20 MG TABLET PO (08:24)
[2024-01-16] MEDS: Cholecalciferol (Vitamin D3) 25 MCG TABLET PO (08:24)
[2024-01-16] MEDS: LORazepam 1 MG TABLET PO ×2 (08:24→21:38)
[2024-01-16] MEDS: Aspirin Enteric Coated 81 MG TABLET.DR PO (08:24)
[2024-01-16] MEDS: Docusate Sodium 100 MG CAPSULE PO ×2 (08:24→21:38)
[2024-01-16] MEDS: Sennosides/Docusate Sodium TABLET 2 TAB PO (08:24)
[2024-01-16] MEDS: Metoprolol Succinate ER 50 MG TAB.ER.24H PO (08:24)
[2024-01-16] MEDS: Losartan Potassium 25 MG TABLET PO (08:24)
[2024-01-16] MEDS: cloZAPine 100 MG TABLET 200 MG PO (08:24)
[2024-01-16 09:01] LABS: Basophils Percent Auto 0.2 % (0-2); Eosinophils Percent Auto 0.1 % (0-4); Hematocrit 34.5 % (42.0-52.0); Imm Gran Abs Auto 0.04 X10*3/uL (0.00-0.03); Imm Gran Pct Auto 0.5 % (0.0-0.4); Lymphocytes Absolute Auto 0.6 X10*3/uL (1.2-4.9); Lymphocytes Percent Auto 7.6 % (20-40); MANUAL DIFF FLAG SCAN; Mean Corpuscular HGB Conc 31.9 g/dl (31.0-36.0); Mean Corpuscular Hemoglobin 27.2 pg (27.0-33.0); Mean Corpuscular Volume 85.2 fL (80.0-98.0); Monocytes Percent Auto 11.8 % (2-11); Neutrophils Absolute Auto 6.7 x10*3/uL (2.0-8.3); Neutrophils Percent Auto 79.8 % (45-73); PLT CLUMP 1; Red Blood Count 4.05 X10*6/uL (4.60-5.80); Red Cell Distribution Width 15.2 % (11.0-16.0); SCAN SMEAR FLAG 1
[2024-01-16 09:12] LABS: Anion Gap 15 (12-20); Blood Urea Nitrogen 28 mg/dL (9-16); Calcium 8.8 mg/dL (8.4-10.2); Carbon Dioxide 19 mmol/L (22-29); Chloride 112 mmol/L (96-108); Estimated Glomerular Filt Rate 52; Glucose Random 145 mg/dL (60-115); Potassium 3.6 mmol/L (3.3-5.1); Sodium 142 mmol/L (135-145)
[2024-01-16 09:33] LABS: Platelet Count 101 X10*3/uL (160-400); White Blood Count 8.4 X10*3/uL (4.8-10.8)
[2024-01-16 09:36] LABS: Procalcitonin 0.39 ng/mL
--- NOTE | 2024-01-16 09:38 | MHC.CM.PN ---
Pt lives in a [facility] supported apartment. He has a HCP on file, naming one of the staff members, Senait. She was informed that he is here, he asked that she be called. DC plan is for pt. to return to his apartment. He was on the psych unit when he had to be admitted here, so he will have a Care team evaluation when he is medically cleared to determine DC plan. CM to follow and assist with DC plan.
--- NOTE | 2024-01-16 09:46 | PM.PNGS ---
Subjective Subjective Date of Service: 01/16/24 <Nidia Palencia PA-C - Last Filed: 01/16/24 09:53> 01/16/24 <Anoop Soto MD - Last Filed: 01/16/24 11:46> Interval history: Denies abdominal pain, bloating, nausea or vomiting this morning. Passing flatus. Reports he hasn't eaten well in a few days. He does report bloody BM the other day. <Nidia Palencia PA-C - Last Filed: 01/16/24 09:53> Physical Exam Vital Signs: Vital Signs: Last Vital Signs Temp 99.3 F 01/16/24 07:12 Pulse 113 H 01/16/24 07:12 Resp 20 01/16/24 07:12 BP 116/85 01/16/24 07:12 Pulse Ox 95 01/16/24 07:12 O2 Del Method Room Air 01/16/24 07:12 BMI result Body Mass Index 34.3 <Nidia Palencia PA-C - Last Filed: 01/16/24 09:53> Const: General: comfortable, no acute distress and alert <Nidia Palencia PA-C - Last Filed: 01/16/24 09:53> GI: Other: slightly distended but softly <OG Pérez Last Filed: 01/16/24 09:53> Palpation (GI): Soft to palpation, nontender, no guarding and not rigid <Nidia Palencia PA-C - Last Filed: 01/16/24 09:53> Skin: General skin exam: no rashes or lesions noted <Nidia Palencia PA-C - Last Filed: 01/16/24 09:53> Objective Data Active Medications Acetaminophen (Acetaminophen 325 Mg Tablet) 650 mg PO Q6H PRN PRN Reason: Pain, Mild (Pain Scale 1-3) Al Hydroxide/Mg Hydroxide (Magnesium Hydrox/Alum Hydrox 30 Ml Oral.Susp) 10 ml PO TID PRN PRN Reason: Indigestion Albuterol Sulfate (Albuterol Sulfate 90 Mcg 8 Gm Inhaler) 2 puff INHALE Q6H PRN PRN Reason: Shortness Of Breath Or Wheezing Aspirin (Aspirin Enteric Coated 81 Mg Tablet.) 81 mg PO DAILY@08 [facility] Last Admin: 01/16/24 08:24 Dose: 81 mg Documented By: RUBEN Atorvastatin Calcium (Atorvastatin Calcium 20 Mg Tablet) 20 mg PO DAILY@1999 [facility] Last Admin: 01/15/24 21:04 Dose: 20 mg Documented By: LENA Clozapine (Clozapine 100 Mg Tablet) 200 mg PO DAILY [facility] Last Admin: 01/16/24 08:24 Dose: 200 mg Documented By: RUBEN Docusate Sodium (Docusate Sodium 100 Mg Capsule) 100 mg PO BID@799,1999 [facility] Last Admin: 01/16/24 08:24 Dose: 100 mg Documented By: RUBEN Enoxaparin Sodium (Enoxaparin Sodium 40 Mg/0.4 Ml Syringe) 40 mg SUBCUT Q24H [facility] Last Admin: 01/15/24 16:34 Dose: 40 mg Documented By: YESI Furosemide (Furosemide 20 Mg Tablet) 20 mg PO DAILY@08 [facility]; Protocol Last Admin: 01/16/24 08:24 Dose: 20 mg Documented By: RUBEN Glucose (Glucose Gel 15 Gm Gel..Gram.) 15 gm PO Q15M PRN; Protocol PRN Reason: per Hypoglycemia Standing Ord. Sodium Chloride (Ns) 1,000 mls @ 100 mls/hr IVCONT .Q10H [facility] Last Admin: 01/16/24 01:50 Dose: 100 mls/hr Documented By: ANTOIC Dextrose (D10) 250 mls @ 750 mls/hr IV Q15M PRN; Protocol PRN Reason: per Hypoglycemia Standing Ord. Insulin Human Lispro (Insulin Lispro 100 Unit/Ml 3 Ml Vial) 0 unit SUBCUT QIDACHS [facility]; Protocol Last Admin: 01/16/24 07:42 Dose: Not Given Documented By: RUBEN Non-Admin Reason: No Insulin Coverage Lorazepam (Lorazepam 1 Mg Tablet) 1 mg PO BID [facility] Last Admin: 01/16/24 08:24 Dose: 1 mg Documented By: RUBEN Lorazepam (Lorazepam 0.5 Mg Tablet) 0.5 mg PO DAILY@1999 [facility] Last Admin: 01/15/24 21:05 Dose: 0.5 mg Documented By: LENA Losartan Potassium (Losartan Potassium 25 Mg Tablet) 25 mg PO DAILY@08 [facility]; Protocol Last Admin: 01/16/24 08:24 Dose: 25 mg Documented By: RUBEN Lurasidone HCl (Lurasidone Hcl 20 Mg Tablet) 60 mg PO DAILY@08 [facility] Magnesium Hydroxide (Milk Of Magnesia 30 Ml Oral.Susp) 30 ml PO DAILY PRN PRN Reason: Constipation Metoprolol Succinate (Metoprolol Succinate Er 50 Mg Tab.Er.24h) 50 mg PO BID@799,1999 [facility]; Protocol Last Admin: 01/16/24 08:24 Dose: 50 mg Documented By: RUBEN Nicotine (Nicotine 21 Mg Patch.Td24) 21 mg TRANSDERMA DAILY PRN PRN Reason: smoking cessation Nicotine Polacrilex (Nicotine Polacrilex 2 Mg Gum) 4 mg BUCCAL Q2H PRN PRN Reason: Nicotine Cravings Olanzapine (Olanzapine 5 Mg Tablet) 5 mg PO TID PRN PRN Reason: agitation Omeprazole (Omeprazole 20 Mg Capsule.Dr) 20 mg PO BID@0630,1630 [facility] Last Admin: 01/16/24 07:15 Dose: 20 mg Documented By: MYA Ondansetron HCl (Ondansetron Hcl 4 Mg/2 Ml Vial) 4 mg IVPUSH Q8H PRN PRN Reason: Nausea and Vomiting Polyethylene Glycol (Polyethylene Glycol 3350 17 Gm Powd.Pack) 17 gm PO DAILY PRN PRN Reason: Constipation Polyethylene Glycol (Polyethylene Glycol 3350 17 Gm Powd.Pack) 17 gm PO DAILY [facility] Last Admin: 01/16/24 08:30 Dose: Not Given Documented By: RUBEN Non-Admin Reason: Patient Refused Senna/Docusate Sodium (Sennosides/Docusate Sodium Tablet) 2 tab PO DAILY [facility] Last Admin: 01/16/24 08:24 Dose: 2 tab Documented By: RUBEN Sodium Chloride (0.9 % Sodium Chloride Flush 3 Ml Syringe) 3 ml IVFLUSH QSHIFT [facility] Last Admin: 01/16/24 08:25 Dose: 3 ml Documented By: RUBEN Tamsulosin HCl (Tamsulosin Hcl 0.4 Mg Capsule) 0.4 mg PO DAILY@1999 [facility] Last Admin: 01/15/24 21:05 Dose: 0.4 mg Documented By: LENA Trazodone HCl (Trazodone Hcl 50 Mg Tablet) 50 mg PO DAILY@2000 [facility] Last Admin: 01/15/24 21:04 Dose: 50 mg Documented By: LENA Trazodone HCl (Trazodone Hcl 50 Mg Tablet) 50 mg PO BEDTIME MRX1 PRN PRN Reason: Insomnia Vitamin D (Cholecalciferol (Vitamin D3) 25 Mcg Tablet) 25 mcg PO DAILY@0800 [facility] Last Admin: 01/16/24 08:24 Dose: 25 mcg Documented By: RUBEN <Nidia Palencia PA-C - Last Filed: 01/16/24 09:53> Labs CBC & Chem 7: 01/16/24 07:49 01/16/24 07:49 <Nidia Palencia PA-C - Last Filed: 01/16/24 09:53> Labs: Laboratory Results - last 24 hr 01/15/24 01/15/24 01/15/24 17:20 17:22 17:31 MCV MCH MCHC RDW Plt Count MPV Immature Gran % (Auto) Neut % (Auto) Lymph % (Auto) Mower % (Auto) Eos % (Auto) Baso % (Auto) Lymph # (Auto) Mower # (Auto) Eos # (Auto) Baso # (Auto) Abs Immat Gran (auto) Absolute Neuts (auto) Absolute Nucleated RBC Nucleated RBC % (auto) Anion Gap Estim Creat Clear Calc Estimated GFR POC Glucose 153 H Random Glucose Calcium Troponin I High Sens 104.7 H* D Procalcitonin Influenza Type A (PCR) NEGATIVE Influenza Type B (PCR) NEGATIVE RSV RNA Qual (PCR) NEGATIVE SARS-CoV-2 RNA (RT-PCR) NEGATIVE 01/15/24 01/16/24 01/16/24 22:44 07:17 07:49 MCV 85.2 MCH 27.2 MCHC 31.9 RDW 15.2 Plt Count 101 L MPV Not Reportable Immature Gran % (Auto) 0.5 H Neut % (Auto) 79.8 H Lymph % (Auto) 7.6 L Mower % (Auto) 11.8 H Eos % (Auto) 0.1 Baso % (Auto) 0.2 Lymph # (Auto) 0.6 L Mower # (Auto) 1.0 Eos # (Auto) 0.0 Baso # (Auto) 0.0 Abs Immat Gran (auto) 0.04 H Absolute Neuts (auto) 6.7 Absolute Nucleated RBC 0.000 Nucleated RBC % (auto) 0.0 Anion Gap 15 Estim Creat Clear Calc 65.0 Estimated GFR 52 POC Glucose 128 H 144 H Random Glucose 145 H Calcium 8.8 D Troponin I High Sens Procalcitonin Influenza Type A (PCR) Influenza Type B (PCR) RSV RNA Qual (PCR) SARS-CoV-2 RNA (RT-PCR) 01/16/24 08:29 MCV MCH MCHC RDW Plt Count MPV Immature Gran % (Auto) Neut % (Auto) Lymph % (Auto) Mower % (Auto) Eos % (Auto) Baso % (Auto) Lymph # (Auto) Mower # (Auto) Eos # (Auto) Baso # (Auto) Abs Immat Gran (auto) Absolute Neuts (auto) Absolute Nucleated RBC Nucleated RBC % (auto) Anion Gap Estim Creat Clear Calc Estimated GFR POC Glucose Random Glucose Calcium Troponin I High Sens 60.0 H Procalcitonin 0.39 Influenza Type A (PCR) Influenza Type B (PCR) RSV RNA Qual (PCR) SARS-CoV-2 RNA (RT-PCR) <Nidia Palencia PA-C - Last Filed: 01/16/24 09:53> Procedures Date of Service Date of Service: 01/16/24 <Nidia Palencia PA-C - Last Filed: 01/16/24 09:53> 01/16/24 <Anoop Soto MD - Last Filed: 01/16/24 11:46> Progress Note: A&P Assessment and plan (1) Ileus: Status: Acute <Nidia Palencia PA-C - Last Filed: 01/16/24 09:53> Assessment and Plan: Patient reports poor oral intake but denies any abd pain, nausea or vomiting. Tachycardic. No leukocytosis, JUHI yesterday now improved. H/H slightly drifted down since yesterday but likely dilutional. May have a segmental ileus but abdomen overall very benign and softly distended, nontender without peritoneal signs. Cont to increase activity, diet as tolerated. Will continue to follow. <Nidia Palencia PA-C - Last Filed: 01/16/24 09:53> Time Spent With Patient Time: Total time managing care of this patient today ____ minutes. <Nidia Palencia PA-C - Last Filed: 01/16/24 09:53> Quality Stroke Does the patient have a stroke diagnosis?: No <Nidia Palencia PA-C - Last Filed: 01/16/24 09:53> VTE Prior VTE?: No <Nidia Palencia PA-C - Last Filed: 01/16/24 09:53> VTE Risk Level:: Medical - moderate - high <Nidia Palencia PA-C - Last Filed: 01/16/24 09:53> VTE Device Contraindication: Treatment Not Indicated <Nidia Palencia PA-C - Last Filed: 01/16/24 09:53> VTE Drug Contraindication: N/A - Med Ordered <OG Pérez Last Filed: 01/16/24 09:53>
--- NOTE | 2024-01-16 11:03 | PM.CNCAR ---
History of Present Illness History of Present Illness Date of Service: 01/16/24 Requesting physician: Juan Boo Consult reason: troponin elevation Chief complaint: Sudden onset weakness / AMS Narrative: I was consulted to see Navid in cardiology consultation today for elevated troponins. Patient was transferred from Behavioral unit to medical floor because of acute mental status change and noted to be tachypneic and tachycardic. Workup was negative for any evidence of sepsis and/or hypoxemia. Hemodynamically stable. However patient was noted to have sinus tachycardia with PACs and also noted to have acute kidney injury. Patient's main admitting getting IV fluids. It was reported the patient was confused but not talking to patient today appears to be in alert mental status and answers appropriately. Denies any cardiac symptoms. Denies any chest pain or shortness of breath. Denies any symptoms of palpitations. Cardiac monitoring shows sinus tachycardia with PACs no arrhythmias. He does not appear to be particularly in respiratory distress at this point in time. He carries a prior diagnose of CAD and says that he has prior myocardial infarction although I do not see any invasive procedures or stenting on him. He also has history of hypertrophic obstructive cardiomyopathy, being treated medically. Patient denies any current cardiac complaints. Review of Systems Review of Systems: Yes all other systems are reviewed and are negative [facility] Past Medical History Medical History (Updated 01/16/24 @ 11:07 by Marciano Zamora MD) HOCM (hypertrophic obstructive cardiomyopathy) Congestive heart failure COVID-19 Thought disorder Nocturnal hypoxemia Constipation COPD (chronic obstructive pulmonary disease) JUDY (obstructive sleep apnea) Smoker BPH (benign prostatic hyperplasia) Diabetes mellitus Obesity (BMI 30-39.9) Pure hypercholesterolemia Prolonged QT interval Essential hypertension Aggression Hypertension Coronary artery disease CHF (congestive heart failure) Cardiac arrhythmia Myocardial infarction Schizoaffective disorder Family History Family History Father Medical history unknown Mother Medical history unknown Sister Alive and well Surgical History Surgical History History of ankle surgery History of intestinal surgery History of transurethral resection of prostate Social History Social History Household Members: Other Household Members Other:: [facility] Housing: House Housing Other:: gr. home Do you presently have visiting nurse or other home services: No Alcohol intake: never Comment: 1:1 sitter Patient Tobacco Use Status: Former Tobacco user Quit Date: Pt is unsure if ready to quit Tobacco use type: Cigarette Cigarette Packs Per Day: 0.5 Cigarettes Per Day: 10.0 Years Smoked: many e-Cigarette/Vaping Use: Never Used Patient Interested in Nicotine Replacement: Yes Use of substances other than those prescribed or required for medical reasons: No Substance Use Type: Unknown Currently Displaying Signs/Symptoms of Drug Intoxication Withdrawal: No Have you been hit, kicked, punched, or otherwise hurt by someone within the past year? If so, by whom?: No Do you feel safe in your current relationship?: Yes Is there a partner from a previous relationship who is making you feel unsafe now?: No Are you made to feel afraid or neglected: No Advance Directives: Yes Advance Directives on File: Yes Advance Directives Date on File: 01/14/24 Do you have thoughts of harming others: None Do you have a plan to hurt others: No Plan Recently lost weight without trying: No Nutrition Risks: No Nutritional Risk Poor oral hygiene: No service: No Current occupational status: disabled Sexual orientation: Straight/Heterosexual Cognitive needs: Yes Hearing needs: No Vision needs: Yes Meds Allergies Allergy/AdvReac Type Severity Reaction Status Date / Time lithium [[place]] Allergy Severe Toxicity Verified 01/10/24 05:05 thiothixene Allergy Severe Swelling Verified 01/10/24 05:05 benztropine Allergy Unknown benztropine Verified 12/30/23 15:59 mesylate- unknown gabapentin [From NEURONTIN] Allergy Unknown Unknown Verified 01/10/24 05:05 fluphenazine [From Prolixin] Allergy Unknown Verified 01/10/24 05:04 barium sulfate AdvReac Intermediate Nausea and Verified 01/10/24 05:05 [BARIUM SULFATE] Vomiting haloperidol AdvReac Intermediate Muscle Verified 01/10/24 05:05 tension in legs diphenhydramine AdvReac Unknown urinary Verified 01/10/24 05:05 [From Benadryl] retention Active Medications: Current Medications Acetaminophen (Acetaminophen 325 Mg Tablet) 650 mg PO Q6H PRN PRN Reason: Pain, Mild (Pain Scale 1-3) Al Hydroxide/Mg Hydroxide (Magnesium Hydrox/Alum Hydrox 30 Ml Oral.Susp) 10 ml PO TID PRN PRN Reason: Indigestion Albuterol Sulfate (Albuterol Sulfate 90 Mcg 8 Gm Inhaler) 2 puff INHALE Q6H PRN PRN Reason: Shortness Of Breath Or Wheezing Aspirin (Aspirin Enteric Coated 81 Mg Tablet.Dr) 81 mg PO DAILY@08 [facility] Last Admin: 01/16/24 08:24 Dose: 81 mg Atorvastatin Calcium (Atorvastatin Calcium 20 Mg Tablet) 20 mg PO DAILY@1999 [facility] Last Admin: 01/15/24 21:04 Dose: 20 mg Clozapine (Clozapine 100 Mg Tablet) 200 mg PO DAILY [facility] Last Admin: 01/16/24 08:24 Dose: 200 mg Docusate Sodium (Docusate Sodium 100 Mg Capsule) 100 mg PO BID@ [facility] Last Admin: 01/16/24 08:24 Dose: 100 mg Enoxaparin Sodium (Enoxaparin Sodium 40 Mg/0.4 Ml Syringe) 40 mg SUBCUT Q24H [facility] Last Admin: 01/15/24 16:34 Dose: 40 mg Glucose (Glucose Gel 15 Gm Gel..Gram.) 15 gm PO Q15M PRN; Protocol PRN Reason: per Hypoglycemia Standing Ord. Sodium Chloride (Ns) 1,000 mls @ 100 mls/hr IVCONT .Q10H [facility] Last Admin: 01/16/24 01:50 Dose: 100 mls/hr Dextrose (D10) 250 mls @ 750 mls/hr IV Q15M PRN; Protocol PRN Reason: per Hypoglycemia Standing Ord. Insulin Human Lispro (Insulin Lispro 100 Unit/Ml 3 Ml Vial) 0 unit SUBCUT QIDACHS [facility]; Protocol Last Admin: 01/16/24 07:42 Dose: Not Given Lorazepam (Lorazepam 1 Mg Tablet) 1 mg PO BID [facility] Last Admin: 01/16/24 08:24 Dose: 1 mg Lorazepam (Lorazepam 0.5 Mg Tablet) 0.5 mg PO DAILY@1999 [facility] Last Admin: 01/15/24 21:05 Dose: 0.5 mg Lurasidone HCl (Lurasidone Hcl 20 Mg Tablet) 60 mg PO DAILY@799 [facility] Magnesium Hydroxide (Milk Of Magnesia 30 Ml Oral.Susp) 30 ml PO DAILY PRN PRN Reason: Constipation Metoprolol Succinate (Metoprolol Succinate Er 25 Mg Tab.Er.24h) 75 mg PO BID@799,1999 [facility]; Protocol Nicotine (Nicotine 21 Mg Patch.Td24) 21 mg TRANSDERMA DAILY PRN PRN Reason: smoking cessation Nicotine Polacrilex (Nicotine Polacrilex 2 Mg Gum) 4 mg BUCCAL Q2H PRN PRN Reason: Nicotine Cravings Olanzapine (Olanzapine 5 Mg Tablet) 5 mg PO TID PRN PRN Reason: agitation Omeprazole (Omeprazole 20 Mg Capsule.Dr) 20 mg PO BID@0630,1630 [facility] Last Admin: 01/16/24 07:15 Dose: 20 mg Ondansetron HCl (Ondansetron Hcl 4 Mg/2 Ml Vial) 4 mg IVPUSH Q8H PRN PRN Reason: Nausea and Vomiting Polyethylene Glycol (Polyethylene Glycol 3350 17 Gm Powd.Pack) 17 gm PO DAILY PRN PRN Reason: Constipation Polyethylene Glycol (Polyethylene Glycol 3350 17 Gm Powd.Pack) 17 gm PO DAILY [facility] Last Admin: 01/16/24 08:30 Dose: Not Given Senna/Docusate Sodium (Sennosides/Docusate Sodium Tablet) 2 tab PO DAILY [facility] Last Admin: 01/16/24 08:24 Dose: 2 tab Sodium Chloride (0.9 % Sodium Chloride Flush 3 Ml Syringe) 3 ml IVFLUSH QSHIFT [facility] Last Admin: 01/16/24 08:25 Dose: 3 ml Tamsulosin HCl (Tamsulosin Hcl 0.4 Mg Capsule) 0.4 mg PO DAILY@1999 [facility] Last Admin: 01/15/24 21:05 Dose: 0.4 mg Trazodone HCl (Trazodone Hcl 50 Mg Tablet) 50 mg PO DAILY@1999 [facility] Last Admin: 01/15/24 21:04 Dose: 50 mg Trazodone HCl (Trazodone Hcl 50 Mg Tablet) 50 mg PO BEDTIME MRX1 PRN PRN Reason: Insomnia Vitamin D (Cholecalciferol (Vitamin D3) 25 Mcg Tablet) 25 mcg PO DAILY@799 [facility] Last Admin: 01/16/24 08:24 Dose: 25 mcg Home Medications ?Medication ?Instructions ?Recorded ?Confirmed ?Last Taken ?Type docusate sodium 100 mg capsule 1 cap PO BID@08,199908/18/22 01/15/24 01/15/24 History atorvastatin 20 mg tablet 20 mg PO DAILY@199904/20/23 01/15/2424 History lorazepam 0.5 mg tablet 0.5 mg PO DAILY@199904/20/23 01/15/24 12/29/23 History lorazepam 1 mg tablet 1 mg PO BID@0800,1600 04/20/23 01/15/24 01/15/24 History albuterol sulfate 90 mcg/actuation 2 puff inhalation Q6H PRN 10/10/23 01/15/24 Unknown History aerosol inhaler Shortness Of Breath Or Wheezing aspirin 81 mg tablet,delayed 81 mg PO DAILY@79910/10/23 01/15/24 01/15/24 History release losartan 25 mg tablet 25 mg PO DAILY@79911/03/23 01/15/24 01/15/24 History lurasidone 60 mg tablet 60 mg PO DAILY@79911/03/23 01/15/24 01/15/24 History trazodone 50 mg tablet 50 mg PO DAILY@199911/03/23 01/15/24 12/29/23 History aluminum-mag hydroxide-simethicone 10 ml PO TID PRN Indigestion 12/31/23 01/15/24 Unknown History 200 mg-200 mg-20 mg/5 mL oral susp furosemide 20 mg tablet 20 mg PO DAILY@79912/31/23 01/15/24 01/15/24 History metoprolol succinate 50 mg 50 mg PO BID@08,199912/31/23 01/15/24 01/15/24 History tablet,extended release 24 hr polyethylene glycol 3350 17 17 g PO DAILY PRN Constipation 12/31/23 01/15/24 Unknown History gram/dose oral powder (Miralax) acetaminophen 650 mg 650 mg PO Q6H PRN Pain, Mild 01/15/24 01/15/24 Unknown History tablet,extended release nicotine (polacrilex) 4 mg gum 4 mg buccal Q2H PRN Smoking 01/15/24 01/15/24 Unknown History Cessation nicotine 21 mg/24 hr daily 1 patch transdermal DAILY PRN 01/15/24 01/15/24 Unknown History transdermal patch Smoking Cessation olanzapine 5 mg tablet 5 mg PO TID PRN Agitation 01/15/24 01/15/24 Unknown History tamsulosin 0.4 mg capsule 0.4 mg PO DAILY 01/15/24 01/15/24 Unknown History trazodone 50 mg tablet 50 mg PO BEDTIME PRN Insomnia 01/15/24 01/15/24 Unknown History Physical Exam Vital Signs: Vital Signs: Last Vital Signs Temp 99.3 F 01/16/24 07:12 Pulse 113 H 01/16/24 07:12 Resp 20 01/16/24 07:12 BP 116/85 01/16/24 07:12 Pulse Ox 95 01/16/24 07:12 O2 Del Method Room Air 01/16/24 07:12 BMI result Body Mass Index 34.3 Const: General: cooperative, comfortable, no acute distress, alert and awake Nutritional Appearance: obese Orientation/consciousness: patient oriented x3 Limitations: no limitations HEENT: Head: Yes normocephalic and Yes atraumatic Neck: Neck: Yes trachea midline, Yes supple and Yes no JVD Resp: Effort & Inspection: normal respiratory effort Auscultation: clear to auscultation bilaterally and diminished lung sounds Cardio: Jugular venous distension: no JVD Palpation: normal PMI Rate: regular rate Rhythm: regular rhythm Heart sounds: S1 normal heart sound present, S2 normal heart sound present, no click, no gallops and Murmur heart sound present systolic decrescendo, at the left sternal border and other (Worsens with Valsalva maneuver) GI: Auscultation: normal bowel sounds Skin: General skin exam: no rashes or lesions noted Neuro: General: patient oriented x3 and no focal motor deficits Extrem: General: Yes no clubbing, cyanosis or edema Objective Labs and Meds 01/16/24 07:49 01/16/24 07:49 Lab results: Laboratory Results - last 24 hr 01/15/24 01/15/24 01/15/24 17:20 17:22 17:31 WBC RBC Hgb Hct MCV MCH MCHC RDW Plt Count MPV Immature Gran % (Auto) Neut % (Auto) Lymph % (Auto) [place] % (Auto) Eos % (Auto) Baso % (Auto) Lymph # (Auto) [place] # (Auto) Eos # (Auto) Baso # (Auto) Abs Immat Gran (auto) Absolute Neuts (auto) Absolute Nucleated RBC Nucleated RBC % (auto) Sodium Potassium Chloride Carbon Dioxide Anion Gap BUN Creatinine Estim Creat Clear Calc Estimated GFR POC Glucose 153 H Random Glucose Calcium Troponin I High Sens 104.7 H* D Procalcitonin Influenza Type A (PCR) NEGATIVE Influenza Type B (PCR) NEGATIVE RSV RNA Qual (PCR) NEGATIVE SARS-CoV-2 RNA (RT-PCR) NEGATIVE 01/15/24 01/16/24 01/16/24 22:44 07:17 07:49 WBC 8.4 RBC 4.05 L Hgb 11.0 L Hct 34.5 L MCV 85.2 MCH 27.2 MCHC 31.9 RDW 15.2 Plt Count 101 L MPV Not Reportable Immature Gran % (Auto) 0.5 H Neut % (Auto) 79.8 H Lymph % (Auto) 7.[address] [place] % (Auto) 11.8 H Eos % (Auto) 0.1 Baso % (Auto) 0.2 Lymph # (Auto) 0.[address] [place] # (Auto) 1.0 Eos # (Auto) 0.0 Baso # (Auto) 0.0 Abs Immat Gran (auto) 0.04 H Absolute Neuts (auto) 6.7 Absolute Nucleated RBC 0.000 Nucleated RBC % (auto) 0.0 Sodium 142 Potassium 3.6 Chloride 112 H Carbon Dioxide 19 L Anion Gap 15 BUN 28 H Creatinine 1.40 Estim Creat Clear Calc 65.0 Estimated GFR 52 POC Glucose 128 H 144 H Random Glucose 145 H Calcium 8.8 D Troponin I High Sens Procalcitonin Influenza Type A (PCR) Influenza Type B (PCR) RSV RNA Qual (PCR) SARS-CoV-2 RNA (RT-PCR) 01/16/24 08:29 WBC RBC Hgb Hct MCV MCH MCHC RDW Plt Count MPV Immature Gran % (Auto) Neut % (Auto) Lymph % (Auto) [place] % (Auto) Eos % (Auto) Baso % (Auto) Lymph # (Auto) [place] # (Auto) Eos # (Auto) Baso # (Auto) Abs Immat Gran (auto) Absolute Neuts (auto) Absolute Nucleated RBC Nucleated RBC % (auto) Sodium Potassium Chloride Carbon Dioxide Anion Gap BUN Creatinine Estim Creat Clear Calc Estimated GFR POC Glucose Random Glucose Calcium Troponin I High Sens 60.0 H Procalcitonin 0.39 Influenza Type A (PCR) Influenza Type B (PCR) RSV RNA Qual (PCR) SARS-CoV-2 RNA (RT-PCR) Imaging Radiologist's impression: Impressions Pulmonary Perfusion Imaging 01/15/24 15:45 IMPRESSION: Very low probability of pulmonary embolism. Head CT 01/15/24 16:14 IMPRESSION: No acute intracranial pathology. Assessment and Plan (1) Elevated troponin: Status: Acute Elevated troponin in this middle-aged man with question history of CAD with underlying hypertrophic obstructive cardiomyopathy sinus tachycardia probably related to dehydration in the setting of acute kidney injury is most likely related to that. Unlikely that this represents acute coronary syndrome. He has no new cardiac symptoms at this point time. Will continue treat his tachycardia. Continue to hydrate him aggressively. Outpatient ischemic workup can be pursued. Continue with aspirin and statin therapy. (2) HOCM (hypertrophic obstructive cardiomyopathy): Status: Acute Hypertrophic obstructive cardiomyopathy in setting of dehydration. I would hydrate him aggressively. Also would avoid vasodilators therapy with losartan and/or also avoid diuretic therapy in absence of overt heart failure has both can worsen obstructive physiology. Would maximize his negative inotropic and chronotropic agent for now start with increasing his metoprolol to 50 mg q.6 hours. Maximize to control blood pressure as heart rate. Continue treat underlying cause of sinus tachycardia which could be dehydration and/or anxiety. Thank you for allowing me to partake in his care. Will sign of the case Procedures Date of Service Date of Service: 01/16/24
[2024-01-16 11:12] LABS: Glucose, Whole Blood 180 mg/dL (60-115)
[2024-01-16] MEDS: iohexoL 350 MG/ML 100 ML INFUS..BTL IV (11:36)
[2024-01-16] MEDS: Insulin Lispro 100 UNIT/ML 3 ML VIAL SUBCUT ×2 (12:31→18:44)
[2024-01-16] MEDS: Metoprolol Tartrate 25 MG TABLET PO (12:36)
[2024-01-16] MEDS: Lurasidone HCl 20 MG TABLET 60 MG PO (12:43)
[2024-01-16 13:29] LABS: SLIDE REVIEW VERIFIED
--- NOTE | 2024-01-16 15:10 | P.PNIM_ITS ---
Subjective Subjective Date of Service: 01/16/24 Interval History: denies chest pain denies cough or dyspnea passing gas had bloody BM a few days ago on psychiatry denies abd pain Review of Systems Review of Systems: Yes all other systems are reviewed and are negative Physical Exam 2 Vital Signs: Vital Signs: Last Vital Signs Temp 97.0 F 01/16/24 11:46 Pulse 100 01/16/24 11:46 Resp 20 01/16/24 11:46 BP 106/72 01/16/24 11:46 Pulse Ox 96 01/16/24 11:46 O2 Del Method Room Air 01/16/24 11:46 BMI result Body Mass Index 34.3 Gen: in no acute distress HEENT: sclera anicteric, moist mucus membranes Neck: supple Lungs: clear to auscultation bilaterally Heart: regular rate and rhythm, systolic murmur along LSB Abd: soft, non-tender, non-distended Ext: no edema Skin: warm/well-perfused Neuro: alert and oriented x3, no focal findings Psych: appropriate affect Objective Data Active Medications Acetaminophen (Acetaminophen 325 Mg Tablet) 650 mg PO Q6H PRN PRN Reason: Pain, Mild (Pain Scale 1-3) Al Hydroxide/Mg Hydroxide (Magnesium Hydrox/Alum Hydrox 30 Ml Oral.Susp) 10 ml PO TID PRN PRN Reason: Indigestion Albuterol Sulfate (Albuterol Sulfate 90 Mcg 8 Gm Inhaler) 2 puff INHALE Q6H PRN PRN Reason: Shortness Of Breath Or Wheezing Aspirin (Aspirin Enteric Coated 81 Mg Tablet.) 81 mg PO DAILY@0800 [facility] Last Admin: 01/16/24 08:24 Dose: 81 mg Documented By: RUBEN Atorvastatin Calcium (Atorvastatin Calcium 20 Mg Tablet) 20 mg PO DAILY@1999 [facility] Last Admin: 01/15/24 21:04 Dose: 20 mg Documented By: LENA Clozapine (Clozapine 100 Mg Tablet) 200 mg PO DAILY [facility] Last Admin: 01/16/24 08:24 Dose: 200 mg Documented By: RUBEN Docusate Sodium (Docusate Sodium 100 Mg Capsule) 100 mg PO BID@0800,1999 [facility] Last Admin: 01/16/24 08:24 Dose: 100 mg Documented By: RUBEN Enoxaparin Sodium (Enoxaparin Sodium 40 Mg/0.4 Ml Syringe) 40 mg SUBCUT Q24H [facility] Last Admin: 01/15/24 16:34 Dose: 40 mg Documented By: YESI Glucose (Glucose Gel 15 Gm Gel..Gram.) 15 gm PO Q15M PRN; Protocol PRN Reason: per Hypoglycemia Standing Ord. Sodium Chloride (Ns) 1,000 mls @ 100 mls/hr IVCONT .Q10H [facility] Last Admin: 01/16/24 12:35 Dose: 100 mls/hr Documented By: MAICO Dextrose (D10) 250 mls @ 750 mls/hr IV Q15M PRN; Protocol PRN Reason: per Hypoglycemia Standing Ord. Insulin Human Lispro (Insulin Lispro 100 Unit/Ml 3 Ml Vial) 0 unit SUBCUT QIDACHS [facility]; Protocol Last Admin: 01/16/24 12:31 Dose: 2 unit Documented By: MAICO Lorazepam (Lorazepam 1 Mg Tablet) 1 mg PO BID [facility] Last Admin: 01/16/24 08:24 Dose: 1 mg Documented By: RUBEN Lorazepam (Lorazepam 0.5 Mg Tablet) 0.5 mg PO DAILY@1999 [facility] Last Admin: 01/15/24 21:05 Dose: 0.5 mg Documented By: RADHADESaima Lurasidone HCl (Lurasidone Hcl 20 Mg Tablet) 60 mg PO DAILY@799 [facility] Last Admin: 01/16/24 12:43 Dose: 60 mg Documented By: MAICO Magnesium Hydroxide (Milk Of Magnesia 30 Ml Oral.Susp) 30 ml PO DAILY PRN PRN Reason: Constipation Metoprolol Succinate (Metoprolol Succinate Er 25 Mg Tab.Er.24h) 75 mg PO BID@799,1999 [facility]; Protocol Nicotine (Nicotine 21 Mg Patch.Td24) 21 mg TRANSDERMA DAILY PRN PRN Reason: smoking cessation Nicotine Polacrilex (Nicotine Polacrilex 2 Mg Gum) 4 mg BUCCAL Q2H PRN PRN Reason: Nicotine Cravings Olanzapine (Olanzapine 5 Mg Tablet) 5 mg PO TID PRN PRN Reason: agitation Omeprazole (Omeprazole 20 Mg Capsule.Dr) 20 mg PO BID@0630,1630 [facility] Last Admin: 01/16/24 07:15 Dose: 20 mg Documented By: ANTOIC Ondansetron HCl (Ondansetron Hcl 4 Mg/2 Ml Vial) 4 mg IVPUSH Q8H PRN PRN Reason: Nausea and Vomiting Polyethylene Glycol (Polyethylene Glycol 3350 17 Gm Powd.Pack) 17 gm PO DAILY PRN PRN Reason: Constipation Polyethylene Glycol (Polyethylene Glycol 3350 17 Gm Powd.Pack) 17 gm PO DAILY [facility] Last Admin: 01/16/24 08:30 Dose: Not Given Documented By: RUBEN Non-Admin Reason: Patient Refused Senna/Docusate Sodium (Sennosides/Docusate Sodium Tablet) 2 tab PO DAILY [facility] Last Admin: 01/16/24 08:24 Dose: 2 tab Documented By: RUBEN Sodium Chloride (0.9 % Sodium Chloride Flush 3 Ml Syringe) 3 ml IVFLUSH QSHIFT [facility] Last Admin: 01/16/24 08:25 Dose: 3 ml Documented By: RUBEN Tamsulosin HCl (Tamsulosin Hcl 0.4 Mg Capsule) 0.4 mg PO DAILY@1999 [facility] Last Admin: 01/15/24 21:05 Dose: 0.4 mg Documented By: LENA Trazodone HCl (Trazodone Hcl 50 Mg Tablet) 50 mg PO DAILY@1999 [facility] Last Admin: 01/15/24 21:04 Dose: 50 mg Documented By: LENA Trazodone HCl (Trazodone Hcl 50 Mg Tablet) 50 mg PO BEDTIME MRX1 PRN PRN Reason: Insomnia Vitamin D (Cholecalciferol (Vitamin D3) 25 Mcg Tablet) 25 mcg PO DAILY@0800 [facility] Last Admin: 01/16/24 08:24 Dose: 25 mcg Documented By: RUBEN Labs 01/16/24 07:49 01/16/24 07:49 Labs: Laboratory Results WBC 8.4 X10*3/uL (4.8-10.8) 01/16/24 07:49 RBC 4.05 X10*6/uL (4.60-5.80) L 01/16/24 07:49 Hgb 11.0 g/dl (14.0-18.0) L 01/16/24 07:49 Hct 34.5 % (42.0-52.0) L 01/16/24 07:49 MCV 85.2 fL (80.0-98.0) 01/16/24 07:49 MCH 27.2 pg (27.0-33.0) 01/16/24 07:49 MCHC 31.9 g/dl (31.0-36.0) 01/16/24 07:49 RDW 15.2 % (11.0-16.0) 01/16/24 07:49 Plt Count 101 X10*3/uL (160-400) L 01/16/24 07:49 MPV Not Reportable 01/16/24 07:49 Immature Gran % (Auto) 0.5 % (0.0-0.4) H 01/16/24 07:49 Neut % (Auto) 79.8 % (45-73) H 01/16/24 07:49 Lymph % (Auto) 7.6 % (20-40) L 01/16/24 07:49 [place] % (Auto) 11.8 % (2-11) H 01/16/24 07:49 Eos % (Auto) 0.1 % (0-4) 01/16/24 07:49 Baso % (Auto) 0.2 % (0-2) 01/16/24 07:49 Lymph # (Auto) 0.6 X10*3/uL (1.2-4.9) L 01/16/24 07:49 [place] # (Auto) 1.0 X10*3/uL (0.1-1.2) 01/16/24 07:49 Eos # (Auto) 0.0 X10*3/uL (0.0-0.4) 01/16/24 07:49 Baso # (Auto) 0.0 X10*3/uL (0.0-0.2) 01/16/24 07:49 Abs Immat Gran (auto) 0.04 X10*3/uL (0.00-0.03) H 01/16/24 07:49 Absolute Neuts (auto) 6.7 x10*3/uL (2.0-8.3) 01/16/24 07:49 Absolute Nucleated RBC 0.000 X10*3/uL (0.0-0.012) 01/16/24 07:49 Nucleated RBC % (auto) 0.0 /100WBC (0.0-0.2) 01/16/24 07:49 Smear Tech's Comments VERIFIED 01/16/24 07:49 Sodium 142 mmol/L (135-145) 01/16/24 07:49 Potassium 3.6 mmol/L (3.3-5.1) 01/16/24 07:49 Chloride 112 mmol/L (96-108) H 01/16/24 07:49 Carbon Dioxide 19 mmol/L (22-29) L 01/16/24 07:49 Anion Gap 15 (12-20) 01/16/24 07:49 BUN 28 mg/dL (9-16) H 01/16/24 07:49 Creatinine 1.40 mg/dL (0.5-1.4) 01/16/24 07:49 Estim Creat Clear Calc 65.0 01/16/24 07:49 Estimated GFR 52 01/16/24 07:49 POC Glucose 180 mg/dL (60-115) H 01/16/24 11:06 Random Glucose 145 mg/dL (60-115) H 01/16/24 07:49 Calcium 8.8 mg/dL (8.4-10.2) D 01/16/24 07:49 Troponin I High Sens 60.0 ng/L (<3.5-35.0) H 01/16/24 08:29 Procalcitonin 0.39 ng/mL 01/16/24 08:29 Influenza Type A (PCR) NEGATIVE (Negative) 01/15/24 17:20 Influenza Type B (PCR) NEGATIVE (Negative) 01/15/24 17:20 RSV RNA Qual (PCR) NEGATIVE (Negative) 01/15/24 17:20 SARS-CoV-2 RNA (RT-PCR) NEGATIVE (Negative) 01/15/24 17:20 Impressions Pulmonary Perfusion Imaging 01/15/24 15:45 IMPRESSION: Very low probability of pulmonary embolism. Head CT 01/15/24 16:14 IMPRESSION: No acute intracranial pathology. Assessment and Plan (1) Elevated troponin: Status: Acute Plan d2 59yo M with DM2, HTN, HOCM, HLD, COPD, JUDY, constipation, schizoaffective disorder recent admission here for SBO managed operatively transferred to Psychiatry for clozapine titration THREAD CLIPPER called 01/15/24 for AMS, tachycardia, tachypnea found to have mildly elevated troponins, JUHI acute encephalopathy, ?metabolic - resolved. CT head negative. No clear evidence for infection at this time. mild ileus vs pSBO? - Surg consult. Clear liquids for now. CT A/P. JUHI - likely prerenal, responding to IV fluid hydration elevated troponins - Cardiology consulted, likely demand ischemia from dehydration. Appears to have peaked. HOCM HTN - D/c losartan + furosemide as these may worsen obstructive physiology. Continue IV hydration and increase metoprolol to 50 mg qid - TTE 10/10/23: - Normal left ventricular cavity size. There is severely increased left ventricular wall thickness. The left ventricular systolic function is hyperdynamic. The visually estimated ejection fraction is >70%. - Dynamic LVOT obstruction noted. No obvious CON seen as before. Resting LVOT peak gradient 40 mm Hg, post valsalva 123 mm Hg. This is significantly worse than previous study. - Normal right ventricular cavity size and systolic function. - The left atrium is severely dilated. - Mildly elevated right atrial pressure. - There is mild dilatation of the sinuses of Valsalva measuring 4.00 cm and mild dilatation of the ascending aorta measuring 3.90 cm. CAD - continue ASA, atorvastatin, metoprolol DM2 - lydia-dose lispro schizoaffective disorder - continue clozapine, lurasidone, lorazepam, trazodone VTE ppx - LMWH dispo - eventual return to psychiatry In my clinical judgment, the patient requires continued inpatient hospitalization for the following reasons: JUHI, ileus vs pSBO Total time managing care of this patient today: 45 minutes. Quality Stroke Does the patient have a stroke diagnosis?: No VTE Prior VTE?: No VTE Risk Level:: Medical - moderate - high VTE Device Contraindication: Treatment Not Indicated VTE Drug Contraindication: N/A - Med Ordered
[2024-01-16] MEDS: Metoprolol Tartrate 50 MG TABLET PO ×2 (18:43→21:38)
[2024-01-16] MEDS: Enoxaparin Sodium 40 MG/0.4 ML SYRINGE SUBCUT (18:45)
[2024-01-16 20:52] LABS: Glucose, Whole Blood 138 mg/dL (60-115)
[2024-01-16 21:26] LABS: Creatinine Urine 39.01 mg/dL
[2024-01-16] MEDS: Tamsulosin HCL 0.4 MG CAPSULE PO (21:38)
[2024-01-16] MEDS: LORazepam 0.5 MG TABLET PO (21:38)
[2024-01-16] MEDS: Atorvastatin Calcium 20 MG TABLET PO (21:38)
[2024-01-16] MEDS: traZODone HCL 50 MG TABLET PO ×3 (21:38→23:16)
[2024-01-16] MEDS: OLANZapine 5 MG TABLET PO (23:17)
[2024-01-17] VITALS (15 sets, daily range): BP systolic 99–133; BP diastolic 54–114; PULSE 88–121; RESP 18–31; TEMP 35.4–38.5; O2SAT 84–96
[2024-01-17 04:51] LABS: Glucose, Whole Blood 154 mg/dL (60-115)
[2024-01-17 05:54] LABS: Venous Blood Gas Refer to POC result
[2024-01-17 05:57] LABS: VBG Base Excess -1.4 mmol/L; VBG HCO3 22 mmol/L (22-26); VBG pCO2 33 mmHg; VBG pH 7.42 (7.32-7.43); VBG pO2 64 mmHg
[2024-01-17 06:22] LABS: Anion Gap 12 (12-20); Blood Urea Nitrogen 20 mg/dL (9-16); C Reactive Protein 18.21 mg/dL (< or = 0.50); Carbon Dioxide 22 mmol/L (22-29); Chloride 115 mmol/L (96-108); Creatinine Clr Calc Pharmacy 56.8; Estimated Glomerular Filt Rate 44; Glucose Random 214 mg/dL (60-115); Potassium 3.6 mmol/L (3.3-5.1); Sodium 145 mmol/L (135-145)
[2024-01-17 06:30] LABS: B Type Natriuretic Peptide 952 pg/mL (<100)
[2024-01-17] MEDS: Omeprazole 20 MG CAPSULE.DR PO (06:44)
[2024-01-17 06:59] LABS: Hematocrit 33.8 % (42.0-52.0); Hemoglobin 10.8 g/dl (14.0-18.0); Mean Corpuscular Hemoglobin 27.3 pg (27.0-33.0); Mean Corpuscular Volume 85.4 fL (80.0-98.0); Mean Platelet Volume 13.2 fL (9.4-12.4); Red Blood Count 3.96 X10*6/uL (4.60-5.80); Red Cell Distribution Width 15.3 % (11.0-16.0); White Blood Count 8.5 X10*3/uL (4.8-10.8)
[2024-01-17 07:01] LABS: Platelet Count 82 X10*3/uL (160-400)
[2024-01-17 07:24] LABS: Glucose, Whole Blood 170 mg/dL (60-115)
[2024-01-17] MEDS: Lactated Ringers 1,000 ML 125 ML IVCONT ×3 (08:10→19:52)
[2024-01-17] MEDS: Insulin Lispro 100 UNIT/ML 3 ML VIAL SUBCUT (08:16)
[2024-01-17] MEDS: Sennosides/Docusate Sodium TABLET 2 TAB PO (08:16)
[2024-01-17] MEDS: Docusate Sodium 100 MG CAPSULE PO (08:16)
[2024-01-17] MEDS: Cholecalciferol (Vitamin D3) 25 MCG TABLET PO (08:16)
[2024-01-17] MEDS: Aspirin Enteric Coated 81 MG TABLET.DR PO (08:16)
[2024-01-17] MEDS: Metoprolol Tartrate 50 MG TABLET PO (08:16)
[2024-01-17] MEDS: LORazepam 1 MG TABLET PO (08:16)
[2024-01-17] MEDS: polyethylene glycoL 3350 17 GM POWD.PACK PO (08:16)
[2024-01-17] MEDS: cloZAPine 100 MG TABLET 200 MG PO (08:16)
[2024-01-17] MEDS: Lurasidone HCl 20 MG TABLET 60 MG PO (08:20)
[2024-01-17 08:26] LABS: Procalcitonin 0.56 ng/mL
[2024-01-17 09:45] LABS: Venous Blood Gas Refer to POC result
[2024-01-17 09:45] LABS: VBG Base Excess -2.3 mmol/L; VBG HCO3 21 mmol/L (22-26); VBG pCO2 33 mmHg; VBG pH 7.41 (7.32-7.43); VBG pO2 70 mmHg
[2024-01-17 10:36] LABS: Lactic Acid 1.7 mmol/L (0.5-2.0)
[2024-01-17] MEDS: OLANZapine 5 MG TABLET PO (10:39)
[2024-01-17] MEDS: Piperacillin Sodium/Tazobactam 3.375 GM in 0.9 % Sodium Chloride 50 ML IV (11:15)
[2024-01-17 11:24] LABS: Glucose, Whole Blood 178 mg/dL (60-115)
[2024-01-17] MEDS: LORazepam 2 MG/ML VIAL 1 MG IVPUSH ×2 (11:48→12:14)
--- NOTE | 2024-01-17 11:51 | PC.RT ---
ABG ordered by Dr Boo. This RT came to bedside, pt is febrile and agitated at this time. RN, sitter, concrete finishing machine operator all at pt bedside in attempts to medicate and redirect pt in bed, pt uncooperative. MD at bedside states ABG is not needed at this time. Sats low 90s at this time.
[2024-01-17 12:10] LABS: Alanine Aminotransferase 22 U/L (0-40); Albumin Level 3.5 g/dL (3.5-5.0); Alkaline Phosphatase 55 U/L (39-117); Aspartate Amino Transferase 18 U/L (5-37); Bilirubin Direct 0.2 mg/dL (0.0-0.5); Bilirubin Total 0.5 mg/dL (0.0-1.0); Lactate Dehydrogenase 264 U/L (118-273); Total Protein 6.7 g/dL (6.5-8.0)
--- NOTE | 2024-01-17 12:36 | HO.PM.IMPN ---
Subjective Subjective Date of Service: 01/17/24 Interval History: agitated, delirious now febrile to 104 Review of Systems Review of Systems: Yes Unobtainable due to mental status Physical Exam Vital Signs: Vital Signs: Last Vital Signs Temp 98.8 F 01/17/24 11:18 Pulse 120 H 01/17/24 11:18 Resp 20 01/17/24 11:09 BP 123/77 01/17/24 11:18 Pulse Ox 92 01/17/24 11:18 O2 Del Method Nasal Cannula 01/17/24 11:18 O2 Flow Rate 2 01/17/24 11:18 BMI result Body Mass Index 34.3 Gen: agitated, tremulous HEENT: sclera anicteric, dry mouth Neck: supple Lungs: clear to auscultation bilaterally Heart: regular, tachycardic, systolic murmur along LSB Abd: soft, non-tender, non-distended Ext: no edema Skin: warm/well-perfused Neuro: delirious, moving all extremities, no rigidity, unable to assess orientation Psych: impaired insight Objective Data Active Medications Al Hydroxide/Mg Hydroxide (Magnesium Hydrox/Alum Hydrox 30 Ml Oral.Susp) 10 ml PO TID PRN PRN Reason: Indigestion Albuterol Sulfate (Albuterol Sulfate 90 Mcg 8 Gm Inhaler) 2 puff INHALE Q6H PRN PRN Reason: Shortness Of Breath Or Wheezing Aspirin (Aspirin Enteric Coated 81 Mg Tablet.) 81 mg PO DAILY@08 [facility] Last Admin: 01/17/24 08:16 Dose: 81 mg Documented By: HOWIE Atorvastatin Calcium (Atorvastatin Calcium 20 Mg Tablet) 20 mg PO DAILY@1999 [facility] Last Admin: 01/16/24 21:38 Dose: 20 mg Documented By: SINDHU Docusate Sodium (Docusate Sodium 100 Mg Capsule) 100 mg PO BID@08,1999 [facility] Last Admin: 01/17/24 08:16 Dose: 100 mg Documented By: HOWIE Glucose (Glucose Gel 15 Gm Gel..Gram.) 15 gm PO Q15M PRN; Protocol PRN Reason: per Hypoglycemia Standing Ord. Dextrose (D10) 250 mls @ 750 mls/hr IV Q15M PRN; Protocol PRN Reason: per Hypoglycemia Standing Ord. Lactated Ringer's (Lr) 1,000 mls @ 125 mls/hr IVCONT .Q8H [facility] Last Admin: 01/17/24 08:10 Dose: 125 mls/hr Documented By: HOWIE Piperacillin Sod/Tazobactam (Sod 3.375 gm/ Sodium Chloride) 50 mls @ 100 mls/hr IV Q6H [facility] Last Infusion: 01/17/24 12:06 Dose: Infused Documented By: HOWIE Acetaminophen (Ofirmev) 1,000 mg in 100 mls @ 400 mls/hr IV Q6H [facility] Ceftriaxone Sodium 2 gm/ (Sodium Chloride) 50 mls @ 100 mls/hr IV Q12H [facility] Insulin Human Lispro (Insulin Lispro 100 Unit/Ml 3 Ml Vial) 0 unit SUBCUT QIDACHS [facility]; Protocol Last Admin: 01/17/24 12:14 Dose: Not Given Documented By: HOWIE Non-Admin Reason: NPO Magnesium Hydroxide (Milk Of Magnesia 30 Ml Oral.Susp) 30 ml PO DAILY PRN PRN Reason: Constipation Metoprolol Tartrate (Metoprolol Tartrate 50 Mg Tablet) 50 mg PO QID [facility]; Protocol Last Admin: 01/17/24 08:16 Dose: 50 mg Documented By: HOWIE Metoprolol Tartrate (Metoprolol Tartrate 5 Mg/5 Ml Vial) 5 mg IVPUSH Q6H [facility] Last Admin: 01/17/24 12:24 Dose: Not Given Documented By: HOWIE Non-Admin Reason: recieved dose aleady this AM Nicotine (Nicotine 21 Mg Patch.Td24) 21 mg TRANSDERMA DAILY PRN PRN Reason: smoking cessation Nicotine Polacrilex (Nicotine Polacrilex 2 Mg Gum) 4 mg BUCCAL Q2H PRN PRN Reason: Nicotine Cravings Omeprazole (Omeprazole 20 Mg Capsule.Dr) 20 mg PO BID@0630,1630 [facility] Last Admin: 01/17/24 06:44 Dose: 20 mg Documented By: SINDHU Ondansetron HCl (Ondansetron Hcl 4 Mg/2 Ml Vial) 4 mg IVPUSH Q8H PRN PRN Reason: Nausea and Vomiting Pharmacy Consult (Consult Rx Vancomycin Dosing) 1 each MISCELLANE DAILY PRN PRN Reason: Consult order Polyethylene Glycol (Polyethylene Glycol 3350 17 Gm Powd.Pack) 17 gm PO DAILY PRN PRN Reason: Constipation Polyethylene Glycol (Polyethylene Glycol 3350 17 Gm Powd.Pack) 17 gm PO DAILY [facility] Last Admin: 01/17/24 08:16 Dose: 17 gm Documented By: HOWIE Senna/Docusate Sodium (Sennosides/Docusate Sodium Tablet) 2 tab PO DAILY [facility] Last Admin: 01/17/24 08:16 Dose: 2 tab Documented By: HOWIE Sodium Chloride (0.9 % Sodium Chloride Flush 3 Ml Syringe) 3 ml IVFLUSH QSHIFT [facility] Last Admin: 01/17/24 08:11 Dose: Not Given Documented By: HOWIE Non-Admin Reason: IV Running Tamsulosin HCl (Tamsulosin Hcl 0.4 Mg Capsule) 0.4 mg PO DAILY@1999 [facility] Last Admin: 01/16/24 21:38 Dose: 0.4 mg Documented By: SINDHU Trazodone HCl (Trazodone Hcl 50 Mg Tablet) 50 mg PO DAILY@1999 [facility] Last Admin: 01/16/24 23:16 Dose: 50 mg Documented By: SINDHU Trazodone HCl (Trazodone Hcl 50 Mg Tablet) 50 mg PO BEDTIME MRX1 PRN PRN Reason: Insomnia Last Admin: 01/16/24 22:30 Dose: 50 mg Documented By: SINDHU Comments: no relief after scheduled dose. Vitamin D (Cholecalciferol (Vitamin D3) 25 Mcg Tablet) 25 mcg PO DAILY@0800 [facility] Last Admin: 01/17/24 08:16 Dose: 25 mcg Documented By: HOWIE Labs 01/17/24 05:49 01/17/24 05:49 Labs: Laboratory Results - last 24 hr 01/16/24 01/16/24 01/16/24 07:49 19:51 20:47 MCV MCH MCHC RDW Plt Count MPV Absolute Nucleated RBC Nucleated RBC % (auto) Smear Tech's Comments VERIFIED VBG pH VBG pCO2 VBG pO2 VBG HCO3 VBG O2 Saturation VBG Base Excess Anion Gap Estim Creat Clear Calc Estimated GFR POC Glucose 138 H Random Glucose Lactic Acid Calcium Total Bilirubin Direct Bilirubin AST ALT Alkaline Phosphatase Lactate Dehydrogenase Total Creatine Kinase C-Reactive Protein B-Natriuretic Peptide Total Protein Albumin Procalcitonin Ur Random Sodium 36.0 Urine Creatinine 39.01 01/17/24 01/17/24 01/17/24 04:43 05:49 06:59 MCV 85.4 MCH 27.3 MCHC 32.0 RDW 15.3 Plt Count 82 L MPV 13.2 H Absolute Nucleated RBC 0.000 Nucleated RBC % (auto) 0.0 Smear Tech's Comments VBG pH 7.42 VBG pCO2 33 VBG pO2 64 VBG HCO3 22 VBG O2 Saturation 92.0 VBG Base Excess -1.4 Anion Gap 12 Estim Creat Clear Calc 56.8 Estimated GFR 44 POC Glucose 154 H 170 H Random Glucose 214 H Lactic Acid Calcium 9.0 Total Bilirubin 0.5 Direct Bilirubin 0.2 AST 18 ALT 22 Alkaline Phosphatase 55 Lactate Dehydrogenase 264 Total Creatine Kinase 68 C-Reactive Protein 18.21 H B-Natriuretic Peptide 952 H Total Protein 6.7 Albumin 3.5 Procalcitonin 0.56 Ur Random Sodium Urine Creatinine 01/17/24 01/17/24 01/17/24 09:39 09:59 11:01 MCV MCH MCHC RDW Plt Count MPV Absolute Nucleated RBC Nucleated RBC % (auto) Smear Tech's Comments VBG pH 7.41 VBG pCO2 33 VBG pO2 70 VBG HCO3 21 L VBG O2 Saturation 93.0 VBG Base Excess -2.3 Anion Gap Estim Creat Clear Calc Estimated GFR POC Glucose 178 H Random Glucose Lactic Acid 1.7 Calcium Total Bilirubin Direct Bilirubin AST ALT Alkaline Phosphatase Lactate Dehydrogenase Total Creatine Kinase C-Reactive Protein B-Natriuretic Peptide Total Protein Albumin Procalcitonin Ur Random Sodium Urine Creatinine Assessment and Plan (1) Elevated troponin: Status: Acute Plan d3 59yo M with DM2, HTN, HOCM, HLD, COPD, JUDY, constipation, schizoaffective disorder recent admission here for SBO managed nonoperatively transferred to Psychiatry for clozapine titration 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 Less likely NMS in absence of rigidity and with normal CPK. Psychiatry consulted. Will give IV lorazepam 2 mg q6h. 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 Will start empiric treatment with ceftriaxone + vancomycin. [Got 1 dose piperacillin-tazobactam today]. - TFTs 01/15/24 show subclinical hyperthyroidism or sick euthyroid syndrome - Will transfer to ICU for further management. - Cooling measures JUHI - likely prerenal, responding to IV fluid hydration elevated troponins - Cardiology consulted, likely demand ischemia from dehydration. Appears to have peaked. HOCM HTN - D/c losartan + furosemide as these may worsen obstructive physiology. Continue IV hydration, change metoprolol to IV. - TTE 10/10/23: - Normal left ventricular cavity size. There is severely increased left ventricular wall thickness. The left ventricular systolic function is hyperdynamic. The visually estimated ejection fraction is >70%. - Dynamic LVOT obstruction noted. No obvious CON seen as before. Resting LVOT peak gradient 40 mm Hg, post valsalva 123 mm Hg. This is significantly worse than previous study. - Normal right ventricular cavity size and systolic function. - The left atrium is severely dilated. - Mildly elevated right atrial pressure. - There is mild dilatation of the sinuses of Valsalva measuring 4.00 cm and mild dilatation of the ascending aorta measuring 3.90 cm. CAD - continue ASA, atorvastatin, metoprolol DM2 - lydia-dose lispro schizoaffective disorder - neuroleptics on hold VTE ppx - LMWH dispo - TBD In my clinical judgment, the patient requires continued inpatient hospitalization for the following reasons: fever, encephalopathy Total time managing care of this patient today: 70 minutes. Quality Stroke Does the patient have a stroke diagnosis?: No VTE Prior VTE?: No VTE Risk Level:: Medical - moderate - high VTE Device Contraindication: Treatment Not Indicated VTE Drug Contraindication: N/A - Med Ordered
--- NOTE | 2024-01-17 12:44 | ECG_ITS ---
Test Reason : qtc monitor Blood Pressure : / mmHG Vent. Rate : 106 BPM Atrial Rate : 106 BPM P-R Int : 148 ms QRS Dur : 100 ms QT Int : 390 ms P-R-T Axes : 089 027 171 degrees QTc Int : 518 ms Sinus tachycardia with Premature atrial complexes Left ventricular hypertrophy with repolarization abnormality ( Sokolow-Vences ) Abnormal ECG When compared with ECG of 15-JAN-2024 18:16, Premature atrial complexes are now Present Referred By: Maribeth Watts Electronically Signed By:Javier Bah
--- NOTE | 2024-01-17 12:48 | P.PNCC_ITS ---
Subjective Subjective Date of Service: 01/17/24 Interval History: Patient is a 59 Y M with metabolic syndrome, COPD, JUDY, and extensive psychiatric co-morbidities, initially admitted on 12/30 due to small bowel obstruction, medically managed, later transferred to psychiatry for titration of clozapine on 01/08; of note, patient with rapid response on 01/14 due to encephalopathy, found to be diaphoretic, c/f infection, transferred to medicine service, found to have grossly unremarkable infectious work-up; ICU consulted on 01/16 due to worsening encephalopathy and fever 104 F Critical Care Time (minutes): 90 Physical Exam 2 Vital Signs: Vital Signs: Last Vital Signs Temp 98.8 F 01/17/24 11:18 Pulse 120 H 01/17/24 11:18 Resp 20 01/17/24 11:09 BP 123/77 01/17/24 11:18 Pulse Ox 92 01/17/24 11:18 O2 Del Method Nasal Cannula 01/17/24 11:18 O2 Flow Rate 2 01/17/24 11:18 BMI result Body Mass Index 34.3 Const: Other: somnolent, though arousable; maintaining secretions, airway HEENT: Head: Yes normal to inspection, Yes normocephalic and Yes atraumatic Eyes: General: appearance normal, both eyes and all related structures Neck: Neck: Yes normal visual inspection, Yes full ROM, Yes no meningeal signs and Yes supple Chest: Chest palpation & inspection: normal inspection of the chest Resp: Other: no appreciable rales, rhonchi, wheezing Cardio: Rate: tachycardic Rhythm: regular rhythm GI: Inspection: Yes normal to inspection, No Abdominal wall edema and No distended Palpation (GI): Soft to palpation, not firm, nontender, no guarding and not rigid : Male General Exam: Yes normal external exam Skin: General skin exam: no rashes or lesions noted Neuro: Other: no appreciable clonus, rigidity General: tone normal, moves all extremities, no meningeal signs and no focal motor deficits Extrem: General: Yes normal to inspection, Yes full ROM, Yes capillary refill normal and Yes no clubbing, cyanosis or edema Psych: Other: unable to assess Objective Data Labs 01/17/24 05:49 01/17/24 05:49 Labs: Laboratory Results - last 24 hr 01/16/24 01/16/24 01/16/24 07:49 19:51 20:47 WBC RBC Hgb Hct MCV MCH MCHC RDW Plt Count MPV Absolute Nucleated RBC Nucleated RBC % (auto) Smear Tech's Comments VERIFIED VBG pH VBG pCO2 VBG pO2 VBG HCO3 VBG O2 Saturation VBG Base Excess Sodium Potassium Chloride Carbon Dioxide Anion Gap BUN Creatinine Estim Creat Clear Calc Estimated GFR POC Glucose 138 H Random Glucose Lactic Acid Calcium Total Bilirubin Direct Bilirubin AST ALT Alkaline Phosphatase Lactate Dehydrogenase Total Creatine Kinase C-Reactive Protein B-Natriuretic Peptide Total Protein Albumin Procalcitonin Ur Random Sodium 36.0 Urine Creatinine 39.01 01/17/24 01/17/24 01/17/24 04:43 05:49 06:59 WBC 8.5 RBC 3.96 L Hgb 10.8 L Hct 33.8 L MCV 85.4 MCH 27.3 MCHC 32.0 RDW 15.3 Plt Count 82 L MPV 13.2 H Absolute Nucleated RBC 0.000 Nucleated RBC % (auto) 0.0 Smear Tech's Comments VBG pH 7.42 VBG pCO2 33 VBG pO2 64 VBG HCO3 22 VBG O2 Saturation 92.0 VBG Base Excess -1.4 Sodium 145 Potassium 3.6 Chloride 115 H Carbon Dioxide 22 Anion Gap 12 BUN 20 H Creatinine 1.60 H Estim Creat Clear Calc 56.8 Estimated GFR 44 POC Glucose 154 H 170 H Random Glucose 214 H Lactic Acid Calcium 9.0 Total Bilirubin 0.5 Direct Bilirubin 0.2 AST 18 ALT 22 Alkaline Phosphatase 55 Lactate Dehydrogenase 264 Total Creatine Kinase 68 C-Reactive Protein 18.21 H B-Natriuretic Peptide 952 H Total Protein 6.7 Albumin 3.5 Procalcitonin 0.56 Ur Random Sodium Urine Creatinine 01/17/24 01/17/24 01/17/24 09:39 09:59 11:01 WBC RBC Hgb Hct MCV MCH MCHC RDW Plt Count MPV Absolute Nucleated RBC Nucleated RBC % (auto) Smear Tech's Comments VBG pH 7.41 VBG pCO2 33 VBG pO2 70 VBG HCO3 21 L VBG O2 Saturation 93.0 VBG Base Excess -2.3 Sodium Potassium Chloride Carbon Dioxide Anion Gap BUN Creatinine Estim Creat Clear Calc Estimated GFR POC Glucose 178 H Random Glucose Lactic Acid 1.7 Calcium Total Bilirubin Direct Bilirubin AST ALT Alkaline Phosphatase Lactate Dehydrogenase Total Creatine Kinase C-Reactive Protein B-Natriuretic Peptide Total Protein Albumin Procalcitonin Ur Random Sodium Urine Creatinine Progress Note: A&P Assessment and plan (1) Acute metabolic encephalopathy: Status: Acute (2) Fever: Status: Acute (3) HOCM (hypertrophic obstructive cardiomyopathy): Status: Acute Plan Patient is a 59 Y M with metabolic syndrome, COPD, JUDY, and extensive psychiatric co-morbidities, initially admitted on 12/30 due to small bowel obstruction, medically managed, transferred to psychiatry for titration of clozapine on 01/08; ICU consulted on 01/16 due to worsening encephalopathy and fever 104 F N: encephalopathy, likely toxic-metabolic; hospital-acquired meningitis unlikely, though given encephalopathy, fever, to treat for empiric bacterial meningitis; no appreciable seizure-like activity; to follow-up CT non-contrast head CV: no acute issues; hypertension, HOCM R: no acute issues; COPD, JUDY GI: small bowel obstruction, resolved; NPO : acute renal insufficiency, likely pre-renal d/t insensible losses; IVF as tolerated H: thrombocytopenia, which may be due to clozapine; very close monitoring for pancytopenia, especially neutropenia in setting of clozapine titration; to avoid chemical DVT prophylaxis given thrombocytopenia, possible LP ID: [id number] bacterial meningitis coverage w/ vancomycin, cefepime; possible LP; to repeat blood, urine cultures; to follow-up CT chest; given recent CT abdomen, to defer repeat CT abdomen w/ IV contrast at this point in time E: diabetes mellitus, insulin sliding scale; to follow-up TSH/T4 P: extensive; appreciate psych recommendations; received lurasidone, though no appreciable rigidity to suggest neuroleptic malignant syndrome; to follow-up CK Quality Stroke Does the patient have a stroke diagnosis?: No VTE Prior VTE?: No VTE Risk Level:: Medical - moderate - high VTE Device Contraindication: Treatment Not Indicated VTE Drug Contraindication: N/A - Med Ordered
--- NOTE | 2024-01-17 13:17 | PC.NURSE ---
Upon initial assessment at 0700 pt A/Ox2, able to follow simple commands. Slightly restless and required redirection to stay in bed,not pull at IVs etc. Camera and 1:[address] Took pills whole with no issues. At ~1015 transport attempted to bring pt to head CT but unable to get scan as pt becoming increasingly restless. PRN zyprexa 5mg given PO with no effect. Pts restlessness and agitation increasing, became tachypneic and diaphoretic. MD Boo notified and at bedside. Rectal temp noted to be 103.9, cooling blanket applied as well as ice packs to b/l axilla and groin. IV ativan given per orders. ICU consulted and Dr. Watts at bedside as well as psych and neuro. Pt transferred to ICU at 1320 with industrial tech instructor Celina and TERRI Guthrie. Report given to ISAIAH Figueroa.
[2024-01-17] MEDS: vancomycin/NS 2,000 MG/500 ML PLAST..BAG 250 MG IV (13:40)
[2024-01-17 14:02] LABS: MANUAL DIFF FLAG NO
[2024-01-17 14:11] LABS: Adenovirus PCR Not Detected (Not Detect.); Bordetella parapertussis PCR Not Detected (Not Detect.); Bordetella pertussis PCR Not Detected (Not Detect.); Chlamydia pneumoniae PCR Not Detected (Not Detect.); Coronavirus 229E PCR Not Detected (Not Detect.); Coronavirus HKU1 PCR Not Detected (Not Detect.); Coronavirus NL63 PCR Not Detected (Not Detect.); Coronavirus OC43 PCR Not Detected (Not Detect.); Human metapneumovirus PCR Not Detected (Not Detect.); Influenza A PCR Not Detected (Not Detect.); Influenza B PCR Not Detected (Not Detect.); Mycoplasma pneumoniae PCR Not Detected (Not Detect.); Parainfluenza 1 PCR Not Detected (Not Detect.); Parainfluenza 2 PCR Not Detected (Not Detect.); Parainfluenza 3 PCR Not Detected (Not Detect.); Parainfluenza 4 PCR Not Detected (Not Detect.); RSV PCR Not Detected (Not Detect.); Rhino/Enterovirus PCR Not Detected (Not Detect.)
[2024-01-17 14:11] LABS: Basophils Percent Auto 0.3 % (0-2); Hematocrit 34.5 % (42.0-52.0); Hemoglobin 10.8 g/dl (14.0-18.0); Imm Gran Abs Auto 0.04 X10*3/uL (0.00-0.03); Imm Gran Pct Auto 0.6 % (0.0-0.4); Lymphocytes Absolute Auto 0.4 X10*3/uL (1.2-4.9); Lymphocytes Percent Auto 5.9 % (20-40); Mean Corpuscular HGB Conc 31.3 g/dl (31.0-36.0); Mean Corpuscular Hemoglobin 27.1 pg (27.0-33.0); Mean Corpuscular Volume 86.7 fL (80.0-98.0); Monocytes Absolute Auto 0.4 X10*3/uL (0.1-1.2); Monocytes Percent Auto 6.5 % (2-11); Neutrophils Absolute Auto 5.6 x10*3/uL (2.0-8.3); Neutrophils Percent Auto 86.7 % (45-73); Platelet Count 84 X10*3/uL (160-400); Red Blood Count 3.98 X10*6/uL (4.60-5.80); Red Cell Distribution Width 15.3 % (11.0-16.0); White Blood Count 6.4 X10*3/uL (4.8-10.8)
[2024-01-17 14:17] LABS: VBG Base Excess 0.9 mmol/L; VBG HCO3 26 mmol/L (22-26); VBG pCO2 45 mmHg; VBG pH 7.37 (7.32-7.43); VBG pO2 40 mmHg
--- NOTE | 2024-01-17 14:22 | PHA.PROG ---
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 Weight in k.2 kg Adjusted body weight in Kg: [place] body weight in Kg: Obesity Dosing Indication % IBW: Serum Creatinine - Last 168 Hours 01/16/24 01/17/24 07:49 05:49 Creatinine 1.40 1.60 H Estimated CrCl and GFR - Last 168 Hours 01/16/24 01/17/24 07:49 05:49 Estim Creat Clear Calc 65.0 56.8 Estimated GFR 52 44 Vancomycin Loading Dose: 2000mg x 1 Current Vancomycin Dosing Regimen: 750mg Q12H Vancomycin Monitoring using AUC goal of 400 - 600 range with trough as surrogate marker: 496 mg/L Date and Time for next Vancomycin Level to be drawn: 01/17 @1100 Pharmacist Comments on Vancomycin Plan: BMI = 34.3; predicted trough of 17.4 mg/L. Will continue to monitor renal function and adjust accordingly Vancomycin dosing will take advantage of [employer] as a clinical decision support tool that uses Bayesian modeling to calculate individual patient's pharmacokinetic parameters and forecast the patient's drug concentration time course with the target goal AUC 24 range of 400 - 600 mg/L/hr.
[2024-01-17 14:23] LABS: Lactic Acid 0.9 mmol/L (0.5-2.0)
[2024-01-17 14:24] LABS: SARS-CoV-2 PCR Not Detected (Not Detect.)
[2024-01-17 14:29] LABS: Magnesium 1.8 mg/dL (1.6-2.6); Phosphorus 2.9 mg/dL (2.7-4.5)
[2024-01-17 14:34] LABS: Alanine Aminotransferase 23 U/L (0-40); Albumin Level 3.5 g/dL (3.5-5.0); Alkaline Phosphatase 63 U/L (39-117); Anion Gap 11 (12-20); Aspartate Amino Transferase 22 U/L (5-37); Bilirubin Total 0.6 mg/dL (0.0-1.0); Blood Urea Nitrogen 19 mg/dL (9-16); Calcium 9.1 mg/dL (8.4-10.2); Carbon Dioxide 25 mmol/L (22-29); Chloride 114 mmol/L (96-108); Creatinine Clr Calc Pharmacy 56.8; Estimated Glomerular Filt Rate 44; Glucose Random 153 mg/dL (60-115); Iron 10 mcg/dL (45-160); Percent Iron Saturation 6 % (15-50); Potassium 3.9 mmol/L (3.3-5.1); Sodium 146 mmol/L (135-145); Total Iron Binding Capacity 162 mcg/dL (228-428); Total Protein 6.7 g/dL (6.5-8.0); Unsaturated Iron Binding 152 ug/dL
[2024-01-17 14:50] LABS: Appearance Urine Turbid; Color Urine Yellow; Glucose Urine UA Negative (Negative); Leukocyte Esterase Urine Large (3+) (Negative); Nitrite Urine Positive (Negative); PH 5.5 (5.0-9.0); UMIC TRIGGER UACC YES; Urine Blood Moderate (2+) (Negative); Urine Ketones Negative (Negative); Urine Protein 100 (2+) mg/dL (Neg-Trace)
[2024-01-17 14:50] LABS: TSH reflex Free T4 0.21 uIU/mL (0.32-4.0)
--- NOTE | 2024-01-17 15:06 | P.CNNE_ITS ---
History of Present Illness Data of Consult Service Date: 01/17/24 Primary Care Provider: Regan Hogue MD HPI Reason for consult: Encephalopathy 59 years old man with underlying psychiatric disease but due to medical complications not receiving psychotropic meds was noted to be with fever and confused and this consultation was requested. He was unable to provide any meaningful history. Review of Systems 2 Review of Systems: Could not be done with [facility] Past Medical History Medical History (Updated 01/17/24 @ 13:26 by Maribeth Watts MD) Diabetes mellitus HOCM (hypertrophic obstructive cardiomyopathy) Congestive heart failure COVID-19 Thought disorder Nocturnal hypoxemia Constipation COPD (chronic obstructive pulmonary disease) JUDY (obstructive sleep apnea) Smoker BPH (benign prostatic hyperplasia) Diabetes mellitus Obesity (BMI 30-39.9) Pure hypercholesterolemia Prolonged QT interval Essential hypertension Aggression Hypertension Coronary artery disease CHF (congestive heart failure) Cardiac arrhythmia Myocardial infarction Schizoaffective disorder Family History Family History Father Medical history unknown Mother Medical history unknown Sister Alive and well Surgical History Surgical History History of ankle surgery History of intestinal surgery History of transurethral resection of prostate Social History Social History Household Members: Other Household Members Other:: [employer] Housing: House Housing Other:: gr. 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 Tobacco Use Status: Former Tobacco user Quit Date: Pt is unsure if ready to quit Tobacco use type: Cigarette Cigarette Packs Per Day: 0.5 Cigarettes Per Day: 10.0 Years Smoked: many e-Cigarette/Vaping Use: Never Used Substance Use Type: Unknown Advance Directives Date on File: 01/14/24 service: No Current occupational status: disabled Sexual orientation: Straight/Heterosexual Cognitive needs: Yes Hearing needs: No Vision needs: Yes Meds Allergies Allergy/AdvReac Type Severity Reaction Status Date / Time lithium [[place]] Allergy Severe Toxicity Verified 01/10/24 05:05 thiothixene Allergy Severe Swelling Verified 01/10/24 05:05 benztropine Allergy Unknown benztropine Verified 12/30/23 15:59 mesylate- unknown gabapentin [From NEURONTIN] Allergy Unknown Unknown Verified 01/10/24 05:05 fluphenazine [From Prolixin] Allergy Unknown Verified 01/10/24 05:04 barium sulfate AdvReac Intermediate Nausea and Verified 01/10/24 05:05 [BARIUM SULFATE] Vomiting haloperidol AdvReac Intermediate Muscle Verified 01/10/24 05:05 tension in legs diphenhydramine AdvReac Unknown urinary Verified 01/10/24 05:05 [From Benadryl] retention Active Medications: Current Medications Al Hydroxide/Mg Hydroxide (Magnesium Hydrox/Alum Hydrox 30 Ml Oral.Susp) 10 ml PO TID PRN PRN Reason: Indigestion Albuterol Sulfate (Albuterol Sulfate 90 Mcg 8 Gm Inhaler) 2 puff INHALE Q6H PRN PRN Reason: Shortness Of Breath Or Wheezing Aspirin (Aspirin Enteric Coated 81 Mg Tablet.Dr) 81 mg PO DAILY@0800 [facility] Last Admin: 01/17/24 08:16 Dose: 81 mg Atorvastatin Calcium (Atorvastatin Calcium 20 Mg Tablet) 20 mg PO DAILY@1999 [facility] Last Admin: 01/16/24 21:38 Dose: 20 mg Docusate Sodium (Docusate Sodium 100 Mg Capsule) 100 mg PO BID@0800,1999 [facility] Last Admin: 01/17/24 08:16 Dose: 100 mg Glucose (Glucose Gel 15 Gm Gel..Gram.) 15 gm PO Q15M PRN; Protocol PRN Reason: per Hypoglycemia Standing Ord. Dextrose (D10) 250 mls @ 750 mls/hr IV Q15M PRN; Protocol PRN Reason: per Hypoglycemia Standing Ord. Lactated Ringer's (Lr) 1,000 mls @ 125 mls/hr IVCONT .Q8H [facility] Last Admin: 01/17/24 08:10 Dose: 125 mls/hr Acetaminophen (Ofirmev) 1,000 mg in 100 mls @ 400 mls/hr IV Q6H [facility] Cefepime HCl 2 gm/ Sodium (Chloride) 50 mls @ 100 mls/hr IV Q12H [facility] Vancomycin HCl 750 mg/ Sodium (Chloride) 265 mls @ 265 mls/hr IV Q12H [facility] Insulin Human Lispro (Insulin Lispro 100 Unit/Ml 3 Ml Vial) 0 unit SUBCUT QIDACHS [facility]; Protocol Last Admin: 01/17/24 12:14 Dose: Not Given Magnesium Hydroxide (Milk Of Magnesia 30 Ml Oral.Susp) 30 ml PO DAILY PRN PRN Reason: Constipation Metoprolol Tartrate (Metoprolol Tartrate 50 Mg Tablet) 50 mg PO QID [facility]; Protocol Last Admin: 01/17/24 08:16 Dose: 50 mg Metoprolol Tartrate (Metoprolol Tartrate 5 Mg/5 Ml Vial) 5 mg IVPUSH Q6H [facility] Last Admin: 01/17/24 12:24 Dose: Not Given Midazolam HCl (Midazolam Hcl/Pf 2 Mg/2 Ml Vial) 2 mg IVPUSH Q1H PRN PRN Reason: Agitation Nicotine (Nicotine 21 Mg Patch.Td24) 21 mg TRANSDERMA DAILY PRN PRN Reason: smoking cessation Nicotine Polacrilex (Nicotine Polacrilex 2 Mg Gum) 4 mg BUCCAL Q2H PRN PRN Reason: Nicotine Cravings Omeprazole (Omeprazole 20 Mg Capsule.Dr) 20 mg PO BID@0630,1630 [facility] Last Admin: 01/17/24 06:44 Dose: 20 mg Ondansetron HCl (Ondansetron Hcl 4 Mg/2 Ml Vial) 4 mg IVPUSH Q8H PRN PRN Reason: Nausea and Vomiting Pharmacy Consult (Consult Rx Vancomycin Dosing) 1 each MISCELLANE DAILY PRN PRN Reason: Consult order Polyethylene Glycol (Polyethylene Glycol 3350 17 Gm Powd.Pack) 17 gm PO DAILY PRN PRN Reason: Constipation Polyethylene Glycol (Polyethylene Glycol 3350 17 Gm Powd.Pack) 17 gm PO DAILY [facility] Last Admin: 01/17/24 08:16 Dose: 17 gm Senna/Docusate Sodium (Sennosides/Docusate Sodium Tablet) 2 tab PO DAILY [facility] Last Admin: 01/17/24 08:16 Dose: 2 tab Sodium Chloride (0.9 % Sodium Chloride Flush 3 Ml Syringe) [facility] Last Admin: 01/17/24 14:32 Dose: Not Given Tamsulosin HCl (Tamsulosin Hcl 0.4 Mg Capsule) 0.4 mg PO DAILY@1999 [facility] Last Admin: 01/16/24 21:38 Dose: 0.4 mg Trazodone HCl (Trazodone Hcl 50 Mg Tablet) 50 mg PO DAILY@1999 [facility] Last Admin: 01/16/24 23:16 Dose: 50 mg Trazodone HCl (Trazodone Hcl 50 Mg Tablet) 50 mg PO BEDTIME MRX1 PRN PRN Reason: Insomnia Last Admin: 01/16/24 22:30 Dose: 50 mg Vitamin D (Cholecalciferol (Vitamin D3) 25 Mcg Tablet) 25 mcg PO DAILY@0800 [facility] Last Admin: 01/17/24 08:16 Dose: 25 mcg Home Medications ?Medication ?Instructions ?Recorded ?Confirmed ?Last Taken ?Type docusate sodium 100 mg capsule 1 cap PO BID@08,199908/18/22 01/15/24 01/15/24 History atorvastatin 20 mg tablet 20 mg PO DAILY@199904/20/23 01/15/24 12/29/23 History lorazepam 0.5 mg tablet 0.5 mg PO DAILY@199904/20/23 01/15/24 12/29/23 History lorazepam 1 mg tablet 1 mg PO BID@0800,159904/20/23 01/15/24 01/15/24 History albuterol sulfate 90 mcg/actuation 2 puff inhalation Q6H PRN 10/10/23 01/15/24 Unknown History aerosol inhaler Shortness Of Breath Or Wheezing aspirin 81 mg tablet,delayed 81 mg PO DAILY@79910/10/23 01/15/24 01/15/24 History release losartan 25 mg tablet 25 mg PO DAILY@79911/03/23 01/15/24 01/15/24 History lurasidone 60 mg tablet 60 mg PO DAILY@79911/03/23 01/15/24 01/15/24 History trazodone 50 mg tablet 50 mg PO DAILY@199911/03/23 01/15/24 12/29/23 History aluminum-mag hydroxide-simethicone 10 ml PO TID PRN Indigestion 12/31/23 01/15/24 Unknown History 200 mg-200 mg-20 mg/5 mL oral susp furosemide 20 mg tablet 20 mg PO DAILY@79912/31/23 01/15/24 01/15/24 History metoprolol succinate 50 mg 50 mg PO BID@0800,199912/31/23 01/15/24 01/15/24 History tablet,extended release 24 hr polyethylene glycol 3350 17 17 g PO DAILY PRN Constipation 12/31/23 01/15/24 Unknown History gram/dose oral powder (Miralax) acetaminophen 650 mg 650 mg PO Q6H PRN Pain, Mild 01/15/24 01/15/24 Unknown History tablet,extended release nicotine (polacrilex) 4 mg gum 4 mg buccal Q2H PRN Smoking 01/15/24 01/15/24 Unknown History Cessation nicotine 21 mg/24 hr daily 1 patch transdermal DAILY PRN 01/15/24 01/15/24 Unknown History transdermal patch Smoking Cessation olanzapine 5 mg tablet 5 mg PO TID PRN Agitation 01/15/24 01/15/24 Unknown History tamsulosin 0.4 mg capsule 0.4 mg PO DAILY 01/15/24 01/15/24 Unknown History trazodone 50 mg tablet 50 mg PO BEDTIME PRN Insomnia 01/15/24 01/15/24 Unknown History Physical Exam 2 Vital Signs: Vital Signs: Last Vital Signs Temp 98.8 F 01/17/24 11:18 Pulse 120 H 01/17/24 11:18 Resp 20 01/17/24 11:09 BP 123/77 01/17/24 11:18 Pulse Ox 92 01/17/24 11:18 O2 Del Method Nasal Cannula 01/17/24 11:18 O2 Flow Rate 2 01/17/24 11:18 BMI result Body Mass Index 34.3 Neuro: Other: He is very drowsy and with shouting he barely open his eyes but did not make an eye contact. He was mumbling and stating something that I could not understand. He was not following commands. He was showing picking behavior and grasp behavior. He was having myoclonic jerking in arms or legs. There was no nystagmus. Deep tendon reflexes were trace with flexor plantars. Results Labs 01/17/24 13:53 01/17/24 13:53 Labs: Short CBC 01/17/24 01/17/24 Range/Units 05:49 13:53 WBC 8.5 6.4 (4.8-10.8) X10*3/uL Hgb 10.8 L 10.8 L (14.0-18.0) g/dl Hct 33.8 L 34.5 L (42.0-52.0) % Plt Count 82 L 84 L (160-400) X10*3/uL BMP 01/17/24 01/17/24 05:49 13:53 Sodium 145 146 H Potassium 3.6 3.9 Chloride 115 H 114 H Carbon Dioxide 22 25 BUN 20 H 19 H Creatinine 1.60 H 1.60 H Calcium 9.0 9.1 Cardiac Enzymes 01/17/24 01/17/24 Range/Units 05:49 13:53 Total Creatine Kinase 68 85 (38-174) U/L Liver Function 01/17/24 01/17/24 Range/Units 05:49 13:53 Total Bilirubin 0.5 0.6 (0.0-1.0) mg/dL Direct Bilirubin 0.2 (0.0-0.5) mg/dL AST 18 22 (5-37) U/L ALT 22 23 (0-40) U/L Alkaline Phosphatase 55 63 (39-117) U/L Albumin 3.5 3.5 (3.5-5.0) g/dL Urine 01/17/24 Range/Units 14:26 Urine Color Yellow Urine Appearance Turbid Urine pH 5.5 (5.0-9.0) Ur Specific [place] 1.010 (1.005-1.025) Urine Protein 100 (2+) H (Neg-Trace) mg/dL Urine Glucose (UA) Negative (Negative) mg/dL Assessment and Plan (1) Acute metabolic encephalopathy: Status: Acute Acute encephalopathy or delirium of unknown etiology. Because of fever, he would require panculture and a lumbar puncture. Overall clinical picture is not suggestive of a stroke though epileptic phenomena is a possibility and EEG is also recommended. Procedures Date of Service Date of Service: 01/17/24
[2024-01-17 15:09] LABS: Bacteria Urine 4+ (None Seen); RBC Urine 0-2 /HPF (0-2); Squamous Epithelial Cell Urine 0-2 /HPF (0-2); UACC Culture Trigger YES; WBC Urine >50 /HPF (0-5)
[2024-01-17] MEDS: Midazolam HCl/PF 2 MG/2 ML VIAL IVPUSH ×4 (15:20→20:38)
[2024-01-17 15:49] LABS: Free T4 (Free Thyroxine) 0.91 ng/dL (0.71-1.85)
[2024-01-17 16:22] LABS: Glucose, Whole Blood 123 mg/dL (60-115)
[2024-01-17 16:38] LABS: CSF Appearance Clear, Colorless; CSF Tube # 2
[2024-01-17 16:48] LABS: Glucose CSF 91 mg/dL; Total Protein CSF 35.7 mg/dL (15-45)
--- NOTE | 2024-01-17 16:53 | PC.NURSE ---
Addendum entered by Henry Bird RN 01/18/24 09:00: vences to stay in upon xfer to unit per verbal order Addendum entered by Henry Bird RN 01/17/24 17:56: informed pt HR sustaining low 120s Original Note: MD informed of pt's assessment upon arrival to the unit. Vences was placed per md verbal order and urine specimens were obtained. Per ok to administer PRN versed early in order to complete procedure and CT scans along w/ US guided IV access to be obtained.
--- NOTE | 2024-01-17 16:59 | PM.PSYCN ---
History of Present Illness Date of Service: 01/17/24 Chief Complaint: Sudden onset weakness / AMS Requesting physician: Juan Boo Discussed with referring provider: Yes Sources of Information: patient interviewed and chart reviewed HPI Narrative: pt delirious, encephalopathic, not alert, clonus no muscle rigidity; maybe slight cogwheeling in b/l ankle but no where else making NMS less likely; also current labs not supporting dx of NMS; will order serum Iron. -pt being tranferred to ICU Past Psychiatric History: patient has had multiple psychiatric hospitalizations particularly over the past several years. He has not been able to restate belies on clozapine and his clozapine dose has been capped relatively moderate because of his cardiac conduction issues and question of CHF in the past. He had responded reportedly well to Latuda in the past he was less agitated on Depakote. on moseley order. [facility] Medical History (Updated 01/19/24 @ 12:14 by Geraldo Garcia MD) Schizoaffective disorder Diabetes mellitus HOCM (hypertrophic obstructive cardiomyopathy) Congestive heart failure COVID-19 Thought disorder Nocturnal hypoxemia Constipation COPD (chronic obstructive pulmonary disease) JUDY (obstructive sleep apnea) Smoker BPH (benign prostatic hyperplasia) Diabetes mellitus Obesity (BMI 30-39.9) Pure hypercholesterolemia Prolonged QT interval Essential hypertension Aggression Hypertension Coronary artery disease CHF (congestive heart failure) Cardiac arrhythmia Myocardial infarction Surgical History History of ankle surgery History of intestinal surgery History of transurethral resection of prostate Family History: patient was adopted Social History: patient not working not is on disability was living in a supportive apartment but has not been able to maintain this setting in an extended period of time. currently in a senior living. HS grad. SSDI income. Trauma History: has reported having been held at [employer] when he was 23 yo. Diagnostics Vital Signs (24Hr): Vital Signs - 24 hr 01/16/24 19:35 01/16/24 23:19 01/17/24 03:25 Temperature 99.4 F 98.6 F 99.8 F Pulse Rate 101 H 96 114 H Respiratory Rate 18 16 18 Blood Pressure 139/83 110/67 110/79 Pulse Oximetry 96 93 91 L Oxygen Delivery Method Room Air Room Air Room Air Oxygen Flow Rate 01/17/24 08:00 01/17/24 11:09 01/17/24 11:18 Temperature 99.0 F 99.0 F 98.8 F Pulse Rate 100 110 H 120 H Respiratory Rate 18 20 Blood Pressure 131/69 99/69 123/77 Pulse Oximetry 96 94 92 Oxygen Delivery Method Nasal Cannula Nasal Cannula Nasal Cannula Oxygen Flow Rate 2 2 2 01/17/24 15:23 01/17/24 15:30 01/17/24 16:00 Temperature 100.4 F Pulse Rate 100 97 103 H Respiratory Rate 29 H 28 H 25 H Blood Pressure 117/74 118/66 133/114 H Pulse Oximetry 93 93 95 Oxygen Delivery Method Nasal Cannula Nasal Cannula Nasal Cannula Oxygen Flow Rate 2 2 1 BMI result Body Mass Index 34.3 Labs 01/19/24 05:35 01/19/24 05:35 Labs: Laboratory Results - last 48 hr 01/15/24 01/15/24 01/15/24 17:20 17:22 17:31 WBC RBC Hgb Hct MCV MCH MCHC RDW Plt Count MPV Immature Gran % (Auto) Neut % (Auto) Lymph % (Auto) [place] % (Auto) Eos % (Auto) Baso % (Auto) Lymph # (Auto) [place] # (Auto) Eos # (Auto) Baso # (Auto) Abs Immat Gran (auto) Absolute Neuts (auto) Absolute Nucleated RBC Nucleated RBC % (auto) Smear Tech's Comments VBG pH VBG pCO2 VBG pO2 VBG HCO3 VBG O2 Saturation VBG Base Excess Sodium Potassium Chloride Carbon Dioxide Anion Gap BUN Creatinine Estim Creat Clear Calc Estimated GFR POC Glucose 153 H Random Glucose Lactic Acid Calcium Phosphorus Magnesium Iron TIBC % Saturation Unsat Iron Binding Total Bilirubin Direct Bilirubin AST ALT Alkaline Phosphatase Lactate Dehydrogenase Total Creatine Kinase Troponin I High Sens 104.7 H* D C-Reactive Protein B-Natriuretic Peptide Total Protein Albumin Procalcitonin TSH Free T4 Urine Color Urine Appearance Urine pH Ur Specific [place] Urine Protein Urine Glucose (UA) Urine Ketones Urine Blood Urine Nitrite Ur Leukocyte Esterase Urine RBC Urine WBC Ur Squamous Epith Cells Urine Bacteria Hyaline Casts Ur Random Sodium Urine Creatinine CSF Tube Number CSF Appearance (b) CSF Glucose CSF Total Protein Respiratory Panel [place] Adenovirus (Rapid PCR) B.pert (TEM-PCR) B.parapertussis DNA PCR C. pneumoniae DNA (PCR) Coronavirus OC43 (PCR) Coronavirus HKU1 (PCR) Coronavirus 229E (PCR) Coronavirus NL63 (PCR) Human Metapneumovir PCR Influenza A (RT-PCR) Influenza Type A (PCR) NEGATIVE Influenza B (RT-PCR) Influenza Type B (PCR) NEGATIVE M. pneumoniae (PCR) Parainfluenza 1 (PCR) Parainfluenza 2 (PCR) Parainfluenza 3 (PCR) Parainfluenza 4 (PCR) RSV (PCR) RSV RNA Qual (PCR) NEGATIVE Entero/Rhino (PCR) SARS-CoV-2 RNA (RT-PCR) NEGATIVE 01/15/24 01/16/24 01/16/24 22:44 07:17 07:49 WBC 8.4 RBC 4.05 L Hgb 11.0 L Hct 34.5 L MCV 85.2 MCH 27.2 MCHC 31.9 RDW 15.2 Plt Count 101 L MPV Not Reportable Immature Gran % (Auto) 0.5 H Neut % (Auto) 79.8 H Lymph % (Auto) 7.6 L [place] % (Auto) 11.8 H Eos % (Auto) 0.1 Baso % (Auto) 0.2 Lymph # (Auto) 0.6 L [place] # (Auto) 1.0 Eos # (Auto) 0.0 Baso # (Auto) 0.0 Abs Immat Gran (auto) 0.04 H Absolute Neuts (auto) 6.7 Absolute Nucleated RBC 0.000 Nucleated RBC % (auto) 0.0 Smear Tech's Comments VERIFIED VBG pH VBG pCO2 VBG pO2 VBG HCO3 VBG O2 Saturation VBG Base Excess Sodium 142 Potassium 3.6 Chloride 112 H Carbon Dioxide 19 L Anion Gap 15 BUN 28 H Creatinine 1.40 Estim Creat Clear Calc 65.0 Estimated GFR 52 POC Glucose 128 H 144 H Random Glucose 145 H Lactic Acid Calcium 8.8 D Phosphorus Magnesium Iron TIBC % Saturation Unsat Iron Binding Total Bilirubin Direct Bilirubin AST ALT Alkaline Phosphatase Lactate Dehydrogenase Total Creatine Kinase Troponin I High Sens C-Reactive Protein B-Natriuretic Peptide Total Protein Albumin Procalcitonin TSH Free T4 Urine Color Urine Appearance Urine pH Ur Specific [place] Urine Protein Urine Glucose (UA) Urine Ketones Urine Blood Urine Nitrite Ur Leukocyte Esterase Urine RBC Urine WBC Ur Squamous Epith Cells Urine Bacteria Hyaline Casts Ur Random Sodium Urine Creatinine CSF Tube Number CSF Appearance (b) CSF Glucose CSF Total Protein Respiratory Panel [place] Adenovirus (Rapid PCR) B.pert (TEM-PCR) B.parapertussis DNA PCR C. pneumoniae DNA (PCR) Coronavirus OC43 (PCR) Coronavirus HKU1 (PCR) Coronavirus 229E (PCR) Coronavirus NL63 (PCR) Human Metapneumovir PCR Influenza A (RT-PCR) Influenza Type A (PCR) Influenza B (RT-PCR) Influenza Type B (PCR) M. pneumoniae (PCR) Parainfluenza 1 (PCR) Parainfluenza 2 (PCR) Parainfluenza 3 (PCR) Parainfluenza 4 (PCR) RSV (PCR) RSV RNA Qual (PCR) Entero/Rhino (PCR) SARS-CoV-2 RNA (RT-PCR) 01/16/24 01/16/24 01/16/24 08:29 11:06 19:51 WBC RBC Hgb Hct MCV MCH MCHC RDW Plt Count MPV Immature Gran % (Auto) Neut % (Auto) Lymph % (Auto) [place] % (Auto) Eos % (Auto) Baso % (Auto) Lymph # (Auto) [place] # (Auto) Eos # (Auto) Baso # (Auto) Abs Immat Gran (auto) Absolute Neuts (auto) Absolute Nucleated RBC Nucleated RBC % (auto) Smear Tech's Comments VBG pH VBG pCO2 VBG pO2 VBG HCO3 VBG O2 Saturation VBG Base Excess Sodium Potassium Chloride Carbon Dioxide Anion Gap BUN Creatinine Estim Creat Clear Calc Estimated GFR POC Glucose 180 H Random Glucose Lactic Acid Calcium Phosphorus Magnesium Iron TIBC % Saturation Unsat Iron Binding Total Bilirubin Direct Bilirubin AST ALT Alkaline Phosphatase Lactate Dehydrogenase Total Creatine Kinase Troponin I High Sens 60.0 H C-Reactive Protein B-Natriuretic Peptide Total Protein Albumin Procalcitonin 0.39 TSH Free T4 Urine Color Urine Appearance Urine pH Ur Specific [place] Urine Protein Urine Glucose (UA) Urine Ketones Urine Blood Urine Nitrite Ur Leukocyte Esterase Urine RBC Urine WBC Ur Squamous Epith Cells Urine Bacteria Hyaline Casts Ur Random Sodium 36.0 Urine Creatinine 39.01 CSF Tube Number CSF Appearance (b) CSF Glucose CSF Total Protein Respiratory Panel [place] Adenovirus (Rapid PCR) B.pert (TEM-PCR) B.parapertussis DNA PCR C. pneumoniae DNA (PCR) Coronavirus OC43 (PCR) Coronavirus HKU1 (PCR) Coronavirus 229E (PCR) Coronavirus NL63 (PCR) Human Metapneumovir PCR Influenza A (RT-PCR) Influenza Type A (PCR) Influenza B (RT-PCR) Influenza Type B (PCR) M. pneumoniae (PCR) Parainfluenza 1 (PCR) Parainfluenza 2 (PCR) Parainfluenza 3 (PCR) Parainfluenza 4 (PCR) RSV (PCR) RSV RNA Qual (PCR) Entero/Rhino (PCR) SARS-CoV-2 RNA (RT-PCR) 01/16/24 01/17/24 01/17/24 20:47 04:43 05:49 WBC 8.5 RBC 3.96 L Hgb 10.8 L Hct 33.8 L MCV 85.4 MCH 27.3 MCHC 32.0 RDW 15.3 Plt Count 82 L MPV 13.2 H Immature Gran % (Auto) Neut % (Auto) Lymph % (Auto) [place] % (Auto) Eos % (Auto) Baso % (Auto) Lymph # (Auto) [place] # (Auto) Eos # (Auto) Baso # (Auto) Abs Immat Gran (auto) Absolute Neuts (auto) Absolute Nucleated RBC 0.000 Nucleated RBC % (auto) 0.0 Smear Tech's Comments VBG pH 7.42 VBG pCO2 33 VBG pO2 64 VBG HCO3 22 VBG O2 Saturation 92.0 VBG Base Excess -1.4 Sodium 145 Potassium 3.6 Chloride 115 H Carbon Dioxide 22 Anion Gap 12 BUN 20 H Creatinine 1.60 H Estim Creat Clear Calc 56.8 Estimated GFR 44 POC Glucose 138 H 154 H Random Glucose 214 H Lactic Acid Calcium 9.0 Phosphorus Magnesium Iron TIBC % Saturation Unsat Iron Binding Total Bilirubin 0.5 Direct Bilirubin 0.2 AST 18 ALT 22 Alkaline Phosphatase 55 Lactate Dehydrogenase 264 Total Creatine Kinase 68 Troponin I High Sens C-Reactive Protein 18.21 H B-Natriuretic Peptide 952 H Total Protein 6.7 Albumin 3.5 Procalcitonin 0.56 TSH Free T4 Urine Color Urine Appearance Urine pH Ur Specific [place] Urine Protein Urine Glucose (UA) Urine Ketones Urine Blood Urine Nitrite Ur Leukocyte Esterase Urine RBC Urine WBC Ur Squamous Epith Cells Urine Bacteria Hyaline Casts Ur Random Sodium Urine Creatinine CSF Tube Number CSF Appearance (b) CSF Glucose CSF Total Protein Respiratory Panel [place] Adenovirus (Rapid PCR) B.pert (TEM-PCR) B.parapertussis DNA PCR C. pneumoniae DNA (PCR) Coronavirus OC43 (PCR) Coronavirus HKU1 (PCR) Coronavirus 229E (PCR) Coronavirus NL63 (PCR) Human Metapneumovir PCR Influenza A (RT-PCR) Influenza Type A (PCR) Influenza B (RT-PCR) Influenza Type B (PCR) M. pneumoniae (PCR) Parainfluenza 1 (PCR) Parainfluenza 2 (PCR) Parainfluenza 3 (PCR) Parainfluenza 4 (PCR) RSV (PCR) RSV RNA Qual (PCR) Entero/Rhino (PCR) SARS-CoV-2 RNA (RT-PCR) 01/17/24 01/17/24 01/17/24 06:59 09:39 09:59 WBC RBC Hgb Hct MCV MCH MCHC RDW Plt Count MPV Immature Gran % (Auto) Neut % (Auto) Lymph % (Auto) [place] % (Auto) Eos % (Auto) Baso % (Auto) Lymph # (Auto) [place] # (Auto) Eos # (Auto) Baso # (Auto) Abs Immat Gran (auto) Absolute Neuts (auto) Absolute Nucleated RBC Nucleated RBC % (auto) Smear Tech's Comments VBG pH 7.41 VBG pCO2 33 VBG pO2 70 VBG HCO3 21 L VBG O2 Saturation 93.0 VBG Base Excess -2.3 Sodium Potassium Chloride Carbon Dioxide Anion Gap BUN Creatinine Estim Creat Clear Calc Estimated GFR POC Glucose 170 H Random Glucose Lactic Acid 1.7 Calcium Phosphorus Magnesium Iron TIBC % Saturation Unsat Iron Binding Total Bilirubin Direct Bilirubin AST ALT Alkaline Phosphatase Lactate Dehydrogenase Total Creatine Kinase Troponin I High Sens C-Reactive Protein B-Natriuretic Peptide Total Protein Albumin Procalcitonin TSH Free T4 Urine Color Urine Appearance Urine pH Ur Specific [place] Urine Protein Urine Glucose (UA) Urine Ketones Urine Blood Urine Nitrite Ur Leukocyte Esterase Urine RBC Urine WBC Ur Squamous Epith Cells Urine Bacteria Hyaline Casts Ur Random Sodium Urine Creatinine CSF Tube Number CSF Appearance (b) CSF Glucose CSF Total Protein Respiratory Panel [place] Adenovirus (Rapid PCR) B.pert (TEM-PCR) B.parapertussis DNA PCR C. pneumoniae DNA (PCR) Coronavirus OC43 (PCR) Coronavirus HKU1 (PCR) Coronavirus 229E (PCR) Coronavirus NL63 (PCR) Human Metapneumovir PCR Influenza A (RT-PCR) Influenza Type A (PCR) Influenza B (RT-PCR) Influenza Type B (PCR) M. pneumoniae (PCR) Parainfluenza 1 (PCR) Parainfluenza 2 (PCR) Parainfluenza 3 (PCR) Parainfluenza 4 (PCR) RSV (PCR) RSV RNA Qual (PCR) Entero/Rhino (PCR) SARS-CoV-2 RNA (RT-PCR) 01/17/24 01/17/24 01/17/24 11:01 11:27 13:53 WBC 6.4 RBC 3.98 L Hgb 10.8 L Hct 34.5 L MCV 86.7 MCH 27.1 MCHC 31.3 RDW 15.3 Plt Count 84 L MPV 13.0 H Immature Gran % (Auto) 0.6 H Neut % (Auto) 86.7 H Lymph % (Auto) 5.9 L [place] % (Auto) 6.5 Eos % (Auto) 0.0 Baso % (Auto) 0.3 Lymph # (Auto) 0.4 L [place] # (Auto) 0.4 Eos # (Auto) 0.0 Baso # (Auto) 0.0 Abs Immat Gran (auto) 0.04 H Absolute Neuts (auto) 5.6 Absolute Nucleated RBC 0.000 Nucleated RBC % (auto) 0.0 Smear Tech's Comments VBG pH VBG pCO2 VBG pO2 VBG HCO3 VBG O2 Saturation VBG Base Excess Sodium 146 H Potassium 3.9 Chloride 114 H Carbon Dioxide 25 Anion Gap 11 L BUN 19 H Creatinine 1.60 H Estim Creat Clear Calc 56.8 Estimated GFR 44 POC Glucose 178 H Random Glucose 153 H Lactic Acid 0.9 Calcium 9.1 Phosphorus Magnesium Iron 10 L TIBC 162 L % Saturation 6 L Unsat Iron Binding 152 Total Bilirubin 0.6 Direct Bilirubin AST 22 ALT 23 Alkaline Phosphatase 63 Lactate Dehydrogenase Total Creatine Kinase 85 Troponin I High Sens 67.0 H C-Reactive Protein B-Natriuretic Peptide Total Protein 6.7 Albumin 3.5 Procalcitonin TSH 0.21 L Free T4 0.91 Urine Color Urine Appearance Urine pH Ur Specific [place] Urine Protein Urine Glucose (UA) Urine Ketones Urine Blood Urine Nitrite Ur Leukocyte Esterase Urine RBC Urine WBC Ur Squamous Epith Cells Urine Bacteria Hyaline Casts Ur Random Sodium Urine Creatinine CSF Tube Number CSF Appearance (b) CSF Glucose CSF Total Protein Respiratory Panel Rivera See Note Adenovirus (Rapid PCR) Not Detected B.pert (TEM-PCR) Not Detected B.parapertussis DNA PCR Not Detected C. pneumoniae DNA (PCR) Not Detected Coronavirus OC43 (PCR) Not Detected Coronavirus HKU1 (PCR) Not Detected Coronavirus 229E (PCR) Not Detected Coronavirus NL63 (PCR) Not Detected Human Metapneumovir PCR Not Detected Influenza A (RT-PCR) Not Detected Influenza Type A (PCR) Influenza B (RT-PCR) Not Detected Influenza Type B (PCR) M. pneumoniae (PCR) Not Detected Parainfluenza 1 (PCR) Not Detected Parainfluenza 2 (PCR) Not Detected Parainfluenza 3 (PCR) Not Detected Parainfluenza 4 (PCR) Not Detected RSV (PCR) Not Detected RSV RNA Qual (PCR) Entero/Rhino (PCR) Not Detected SARS-CoV-2 RNA (RT-PCR) Not Detected 01/17/24 01/17/24 01/17/24 13:54 14:04 14:26 WBC RBC Hgb Hct MCV MCH MCHC RDW Plt Count MPV Immature Gran % (Auto) Neut % (Auto) Lymph % (Auto) [place] % (Auto) Eos % (Auto) Baso % (Auto) Lymph # (Auto) [place] # (Auto) Eos # (Auto) Baso # (Auto) Abs Immat Gran (auto) Absolute Neuts (auto) Absolute Nucleated RBC Nucleated RBC % (auto) Smear Tech's Comments VBG pH 7.37 VBG pCO2 45 VBG pO2 40 VBG HCO3 26 VBG O2 Saturation 65.0 VBG Base Excess 0.9 Sodium Potassium Chloride Carbon Dioxide Anion Gap BUN Creatinine Estim Creat Clear Calc Estimated GFR POC Glucose Random Glucose Lactic Acid Calcium Phosphorus 2.9 Magnesium 1.8 Iron TIBC % Saturation Unsat Iron Binding Total Bilirubin Direct Bilirubin AST ALT Alkaline Phosphatase Lactate Dehydrogenase Total Creatine Kinase Troponin I High Sens C-Reactive Protein B-Natriuretic Peptide Total Protein Albumin Procalcitonin TSH Free T4 Urine Color Yellow Urine Appearance Turbid Urine pH 5.5 Ur Specific [place] 1.010 Urine Protein 100 (2+) H Urine Glucose (UA) Negative Urine Ketones Negative Urine Blood Moderate (2+) H Urine Nitrite Positive H Ur Leukocyte Esterase Large (3+) H Urine RBC 0-2 Urine WBC >50 H Ur Squamous Epith Cells 0-2 Urine Bacteria 4+ Hyaline Casts 3-5 Ur Random Sodium Urine Creatinine CSF Tube Number CSF Appearance (b) CSF Glucose CSF Total Protein Respiratory Panel Rivera Adenovirus (Rapid PCR) B.pert (TEM-PCR) B.parapertussis DNA PCR C. pneumoniae DNA (PCR) Coronavirus OC43 (PCR) Coronavirus HKU1 (PCR) Coronavirus 229E (PCR) Coronavirus NL63 (PCR) Human Metapneumovir PCR Influenza A (RT-PCR) Influenza Type A (PCR) Influenza B (RT-PCR) Influenza Type B (PCR) M. pneumoniae (PCR) Parainfluenza 1 (PCR) Parainfluenza 2 (PCR) Parainfluenza 3 (PCR) Parainfluenza 4 (PCR) RSV (PCR) RSV RNA Qual (PCR) Entero/Rhino (PCR) SARS-CoV-2 RNA (RT-PCR) 01/17/24 01/17/24 16:06 16:20 WBC RBC Hgb Hct MCV MCH MCHC RDW Plt Count MPV Immature Gran % (Auto) Neut % (Auto) Lymph % (Auto) [place] % (Auto) Eos % (Auto) Baso % (Auto) Lymph # (Auto) [place] # (Auto) Eos # (Auto) Baso # (Auto) Abs Immat Gran (auto) Absolute Neuts (auto) Absolute Nucleated RBC Nucleated RBC % (auto) Smear Tech's Comments VBG pH VBG pCO2 VBG pO2 VBG HCO3 VBG O2 Saturation VBG Base Excess Sodium Potassium Chloride Carbon Dioxide Anion Gap BUN Creatinine Estim Creat Clear Calc Estimated GFR POC Glucose 123 H Random Glucose Lactic Acid Calcium Phosphorus Magnesium Iron TIBC % Saturation Unsat Iron Binding Total Bilirubin Direct Bilirubin AST ALT Alkaline Phosphatase Lactate Dehydrogenase Total Creatine Kinase Troponin I High Sens C-Reactive Protein B-Natriuretic Peptide Total Protein Albumin Procalcitonin TSH Free T4 Urine Color Urine Appearance Urine pH Ur Specific [place] Urine Protein Urine Glucose (UA) Urine Ketones Urine Blood Urine Nitrite Ur Leukocyte Esterase Urine RBC Urine WBC Ur Squamous Epith Cells Urine Bacteria Hyaline Casts Ur Random Sodium Urine Creatinine CSF Tube Number 2 CSF Appearance (b) Clear, Colorless CSF Glucose 91 CSF Total Protein 35.7 Respiratory Panel Rivera Adenovirus (Rapid PCR) B.pert (TEM-PCR) B.parapertussis DNA PCR C. pneumoniae DNA (PCR) Coronavirus OC43 (PCR) Coronavirus HKU1 (PCR) Coronavirus 229E (PCR) Coronavirus NL63 (PCR) Human Metapneumovir PCR Influenza A (RT-PCR) Influenza Type A (PCR) Influenza B (RT-PCR) Influenza Type B (PCR) M. pneumoniae (PCR) Parainfluenza 1 (PCR) Parainfluenza 2 (PCR) Parainfluenza 3 (PCR) Parainfluenza 4 (PCR) RSV (PCR) RSV RNA Qual (PCR) Entero/Rhino (PCR) SARS-CoV-2 RNA (RT-PCR) Imaging Radiology Impressions: ITS Impressions Pulmonary Perfusion Imaging 01/15/24 15:45 IMPRESSION: Very low probability of pulmonary embolism. Head CT 01/15/24 16:14 IMPRESSION: No acute intracranial pathology. Abdomen/Pelvis CT 01/16/24 11:52 IMPRESSION: 1. No evidence of bowel obstruction, resolution of small bowel obstruction seen on the previous study with resolution of portal venous gas 2. Mild splenomegaly. 3. Fat-containing ventral hernia. Fleischner guidelines were followed. Chest X-Ray 01/17/24 04:58 IMPRESSION: No acute cardiopulmonary process. No significant interval change. Medications Medications Current Medications Al Hydroxide/Mg Hydroxide (Magnesium Hydrox/Alum Hydrox 30 Ml Oral.Susp) 10 ml PO TID PRN PRN Reason: Indigestion Albuterol Sulfate (Albuterol Sulfate 90 Mcg 8 Gm Inhaler) 2 puff INHALE Q6H PRN PRN Reason: Shortness Of Breath Or Wheezing Aspirin (Aspirin Enteric Coated 81 Mg Tablet.) 81 mg PO DAILY@08 [facility] Last Admin: 01/17/24 08:16 Dose: 81 mg Atorvastatin Calcium (Atorvastatin Calcium 20 Mg Tablet) 20 mg PO DAILY@1999 [facility] Last Admin: 01/16/24 21:38 Dose: 20 mg Docusate Sodium (Docusate Sodium 100 Mg Capsule) 100 mg PO BID@ [facility] Last Admin: 01/17/24 08:16 Dose: 100 mg Glucose (Glucose Gel 15 Gm Gel..Gram.) 15 gm PO Q15M PRN; Protocol PRN Reason: per Hypoglycemia Standing Ord. Dextrose (D10) 250 mls @ 750 mls/hr IV Q15M PRN; Protocol PRN Reason: per Hypoglycemia Standing Ord. Lactated Ringer's (Lr) 1,000 mls @ 125 mls/hr IVCONT .Q8H [facility] Last Admin: 01/17/24 16:34 Dose: 125 mls/hr Acetaminophen (Ofirmev) 1,000 mg in 100 mls @ 400 mls/hr IV Q6H [facility] Cefepime HCl 2 gm/ Sodium (Chloride) 50 mls @ 100 mls/hr IV Q12H [facility] Vancomycin HCl 750 mg/ Sodium (Chloride) 265 mls @ 265 mls/hr IV Q12H [facility] Insulin Human Lispro (Insulin Lispro 100 Unit/Ml 3 Ml Vial) 0 unit SUBCUT QIDACHS [facility]; Protocol Last Admin: 01/17/24 16:58 Dose: Not Given Lorazepam (Lorazepam 2 Mg/Ml Vial) 1 mg IVPUSH Q8H PRN PRN Reason: Agitation Magnesium Hydroxide (Milk Of Magnesia 30 Ml Oral.Susp) 30 ml PO DAILY PRN PRN Reason: Constipation Metoprolol Tartrate (Metoprolol Tartrate 50 Mg Tablet) 50 mg PO QID [facility]; Protocol Last Admin: 01/17/24 08:16 Dose: 50 mg Metoprolol Tartrate (Metoprolol Tartrate 5 Mg/5 Ml Vial) 5 mg IVPUSH Q6H [facility] Last Admin: 01/17/24 12:24 Dose: Not Given Midazolam HCl (Midazolam Hcl/Pf 2 Mg/2 Ml Vial) 2 mg IVPUSH Q1H PRN PRN Reason: Agitation Last Admin: 01/17/24 16:51 Dose: 2 mg Nicotine (Nicotine 21 Mg Patch.Td24) 21 mg TRANSDERMA DAILY PRN PRN Reason: smoking cessation Nicotine Polacrilex (Nicotine Polacrilex 2 Mg Gum) 4 mg BUCCAL Q2H PRN PRN Reason: Nicotine Cravings Omeprazole (Omeprazole 20 Mg Capsule.) 20 mg PO BID@0630,1630 [facility] Last Admin: 01/17/24 06:44 Dose: 20 mg Ondansetron HCl (Ondansetron Hcl 4 Mg/2 Ml Vial) 4 mg IVPUSH Q8H PRN PRN Reason: Nausea and Vomiting Pharmacy Consult (Consult Rx Vancomycin Dosing) 1 each MISCELLANE DAILY PRN PRN Reason: Consult order Polyethylene Glycol (Polyethylene Glycol 3350 17 Gm Powd.Pack) 17 gm PO DAILY PRN PRN Reason: Constipation Polyethylene Glycol (Polyethylene Glycol 3350 17 Gm Powd.Pack) 17 gm PO DAILY [facility] Last Admin: 01/17/24 08:16 Dose: 17 gm Senna/Docusate Sodium (Sennosides/Docusate Sodium Tablet) 2 tab PO DAILY [facility] Last Admin: 01/17/24 08:16 Dose: 2 tab Sodium Chloride (0.9 % Sodium Chloride Flush 3 Ml Syringe) 3 ml IVFLUSH QSHIFT [facility] Last Admin: 01/17/24 14:32 Dose: Not Given Tamsulosin HCl (Tamsulosin Hcl 0.4 Mg Capsule) 0.4 mg PO DAILY@1999 [facility] Last Admin: 01/16/24 21:38 Dose: 0.4 mg Trazodone HCl (Trazodone Hcl 50 Mg Tablet) 50 mg PO DAILY@1999 [facility] Last Admin: 01/16/24 23:16 Dose: 50 mg Trazodone HCl (Trazodone Hcl 50 Mg Tablet) 50 mg PO BEDTIME MRX1 PRN PRN Reason: Insomnia Last Admin: 01/16/24 22:30 Dose: 50 mg Vitamin D (Cholecalciferol (Vitamin D3) 25 Mcg Tablet) 25 mcg PO DAILY@0800 [facility] Last Admin: 01/17/24 08:16 Dose: 25 mcg Allergies Allergies Allergy/AdvReac Type Severity Reaction Status Date / Time lithium [[place]] Allergy Severe Toxicity Verified 01/10/24 05:05 thiothixene Allergy Severe Swelling Verified 01/10/24 05:05 benztropine Allergy Unknown benztropine Verified 12/30/23 15:59 mesylate- unknown gabapentin [From NEURONTIN] Allergy Unknown Unknown Verified 01/10/24 05:05 fluphenazine [From Prolixin] Allergy Unknown Verified 01/10/24 05:04 barium sulfate AdvReac Intermediate Nausea and Verified 01/10/24 05:05 [BARIUM SULFATE] Vomiting haloperidol AdvReac Intermediate Muscle Verified 01/10/24 05:05 tension in legs diphenhydramine AdvReac Unknown urinary Verified 01/10/24 05:05 [From Benadryl] retention Assessment & Plan Assessment & Plan (1) Delirium: Status: Acute Code(s): R41.0 - Disorientation, unspecified (2) Schizoaffective disorder: Qualifiers: Schizoaffective disorder type: bipolar Qualified Code(s): F25.0 - Schizoaffective disorder, bipolar type Status: Acute Code(s): F25.9 - Schizoaffective disorder, unspecified Plan pt delirious, encephalopathic, not alert, clonus no muscle rigidity; maybe slight cogwheeling in b/l ankle but no where else making NMS less likely; also current labs not supporting dx of NMS; will order serum Iron. -pt being tranferred to ICU impression: unclear etiology for delirium; pt tachy, tachypneic, febrile though less likely NMS given lack of muscle rigidity (present in >97% of pt's with NMS), dc antipsychotics (Clozapine toxicity?) will continue to follow Total time managing care of this patient today ____ minutes. Informed Consent: does not understand
[2024-01-17] MEDS: cefEPime HCl 2 GM in 0.9 % Sodium Chloride 50 ML IV (17:21)
[2024-01-17] MEDS: Acetaminophen 1,000 MG/100 ML PIGGYBACK 400 MG IV ×2 (17:21→19:52)
[2024-01-17 18:03] LABS: Appearance CSF CLEAR
[2024-01-17 18:04] LABS: CSF Tube # 1; CSF Volume 1.5 ML; Color CSF COLORLESS; Cryptococcus neoformans/gattii Not Detected (Not Detect.); Enterovirus Not Detected (Not Detect.); Escherichia coli K1 Not Detected (Not Detect.); Haemophilus influenzae Not Detected (Not Detect.); Herpes simplex virus 1 Not Detected (Not Detect.); Herpes simplex virus 2 Not Detected (Not Detect.); Human herpesvirus 6 Not Detected (Not Detect.); Human parechovirus Not Detected (Not Detect.); Listeria monocytogenes Not Detected (Not Detect.); Neisseria meningitidis Not Detected (Not Detect.); Streptococcus agalactiae Not Detected (Not Detect.); Streptococcus pneumoniae Not Detected (Not Detect.); Varicella zoster virus Not Detected (Not Detect.)
[2024-01-17 18:05] LABS: Neutrophils CSF 0 %; Red Blood Cell CSF 0 MM*3; White Blood Cell CSF 6 MM*3
[2024-01-17 18:10] LABS: CSF Monos 19 %
[2024-01-17 18:11] LABS: CSF Other Cells % 10 %; Lymphocytes CSF 71 %
[2024-01-17 18:13] LABS: Appearance CSF CLEAR; CSF Tube # 4; CSF Volume 2.5 ML; Color CSF COLORLESS; White Blood Cell CSF 3 MM*3
[2024-01-17 18:14] LABS: CSF Monos 32 %; CSF Other Cells % 16 %; Lymphocytes CSF 52 %; Neutrophils CSF 0 %; Red Blood Cell CSF 0 MM*3
[2024-01-17] MEDS: Atorvastatin Calcium 20 MG TABLET PO (20:16)
[2024-01-17] MEDS: QUEtiapine Fumarate 25 MG TABLET PO (20:16)
[2024-01-17] MEDS: Tamsulosin HCL 0.4 MG CAPSULE PO (20:16)
[2024-01-17 20:36] LABS: Glucose, Whole Blood 142 mg/dL (60-115)
[2024-01-18] VITALS (13 sets, daily range): BP systolic 100–165; BP diastolic 55–94; PULSE 79–102; RESP 18–24; TEMP 35.4–37.7; O2SAT 95–98; BMI 34.3
[2024-01-18] MEDS: cefEPime HCl 2 GM in 0.9 % Sodium Chloride 50 ML IV ×2 (01:07→13:41)
[2024-01-18] MEDS: Lactated Ringers 1,000 ML 125 ML IVCONT ×3 (03:49→22:26)
[2024-01-18 05:17] LABS: Basophils Percent Auto 0.5 % (0-2); Hemoglobin 10.9 g/dl (14.0-18.0); Imm Gran Abs Auto 0.01 X10*3/uL (0.00-0.03); Imm Gran Pct Auto 0.2 % (0.0-0.4); Lymphocytes Percent Auto 11.9 % (20-40); MANUAL DIFF FLAG SCAN; SCAN SMEAR FLAG 1
[2024-01-18 05:19] LABS: Eosinophils Percent Auto 0.2 % (0-4); Hematocrit 34.9 % (42.0-52.0); Lymphocytes Absolute Auto 0.5 X10*3/uL (1.2-4.9); Mean Corpuscular HGB Conc 31.2 g/dl (31.0-36.0); Mean Corpuscular Volume 86.4 fL (80.0-98.0); Mean Platelet Volume 12.8 fL (9.4-12.4); Monocytes Absolute Auto 0.8 X10*3/uL (0.1-1.2); Monocytes Percent Auto 17.9 % (2-11); Neutrophils Percent Auto 69.3 % (45-73); Red Blood Count 4.04 X10*6/uL (4.60-5.80); Red Cell Distribution Width 15.3 % (11.0-16.0); White Blood Count 4.3 X10*3/uL (4.8-10.8)
[2024-01-18 05:20] LABS: PLT ABN DIST 1; Platelet Count 62 X10*3/uL (160-400)
[2024-01-18 05:36] LABS: Anion Gap 12 (12-20); Blood Urea Nitrogen 18 mg/dL (9-16); Calcium 9.2 mg/dL (8.4-10.2); Carbon Dioxide 21 mmol/L (22-29); Chloride 117 mmol/L (96-108); Creatinine Clr Calc Pharmacy 92.8; Estimated Glomerular Filt Rate > 60; Glucose Random 130 mg/dL (60-115); Magnesium 2.1 mg/dL (1.6-2.6); Phosphorus 3.2 mg/dL (2.7-4.5); Potassium 4.3 mmol/L (3.3-5.1); Sodium 146 mmol/L (135-145)
[2024-01-18 05:44] LABS: SLIDE REVIEW VERIFIED
[2024-01-18 07:19] LABS: Glucose, Whole Blood 96 mg/dL (60-115)
[2024-01-18] MEDS: Cholecalciferol (Vitamin D3) 25 MCG TABLET PO (08:52)
[2024-01-18] MEDS: QUEtiapine Fumarate 25 MG TABLET PO ×2 (08:52→22:26)
[2024-01-18] MEDS: Sennosides/Docusate Sodium TABLET 2 TAB PO (08:52)
[2024-01-18] MEDS: polyethylene glycoL 3350 17 GM POWD.PACK PO (08:52)
[2024-01-18] MEDS: Acetaminophen 1,000 MG/100 ML PIGGYBACK 400 MG IV ×3 (08:53→19:20)
[2024-01-18] MEDS: Omeprazole 20 MG CAPSULE.DR PO ×2 (08:53→15:56)
[2024-01-18] MEDS: Docusate Sodium 100 MG CAPSULE PO ×2 (08:53→22:26)
--- NOTE | 2024-01-18 11:05 | MHC.CM.PN ---
Pt maintained clinical stability without the need for airway management and can be transferred to the [facility] floor today. Pt may need to be seen by psych once medically stable as pt initially came from for treatment of his medical needs.
[2024-01-18 11:09] LABS: Glucose, Whole Blood 181 mg/dL (60-115)
--- NOTE | 2024-01-18 12:02 | P.PNCA_ITS ---
Subjective Subjective Date of Service: 01/18/24 Interval history: Seen and examined at bedside. Awake and answering questions appropriately. Physical Exam Vital Signs: Last Vital Signs Temp 100 F 01/18/24 08:00 Pulse 102 H 01/18/24 08:00 Resp 24 H 01/18/24 08:00 BP 121/66 01/18/24 08:00 Pulse Ox 96 01/18/24 08:00 O2 Del Method Nasal Cannula 01/18/24 08:00 O2 Flow Rate 1 01/18/24 08:00 BMI result Body Mass Index 34.3 GENERAL APPEARANCE: in no acute distress, pleasant. NECK: no carotid bruit, no jugular venous distention. SKIN: no suspicious lesions, warm and dry. HEART: Systolic murmur left sternal border, regular rate and rhythm. Tachycardic. LUNGS: clear to auscultation bilaterally. ABDOMEN: soft, nontender. EXTREMITIES: no edema. PERIPHERAL PULSES: equal. NEUROLOGIC: No gross deficits, AAO X 3 Objective Labs and Meds 01/18/24 04:55 01/18/24 04:55 Lab results: Laboratory Results - last 24 hr 01/17/24 01/17/24 01/17/24 05:49 11:27 13:53 WBC 6.4 RBC 3.98 L Hgb 10.8 L Hct 34.5 L MCV 86.7 MCH 27.1 MCHC 31.3 RDW 15.3 Plt Count 84 L MPV 13.0 H Immature Gran % (Auto) 0.6 H Neut % (Auto) 86.7 H Lymph % (Auto) 5.9 L [place] % (Auto) 6.5 Eos % (Auto) 0.0 Baso % (Auto) 0.3 Lymph # (Auto) 0.4 L [place] # (Auto) 0.4 Eos # (Auto) 0.0 Baso # (Auto) 0.0 Abs Immat Gran (auto) 0.04 H Absolute Neuts (auto) 5.6 Absolute Nucleated RBC 0.000 Nucleated RBC % (auto) 0.0 Smear Tech's Comments VBG pH VBG pCO2 VBG pO2 VBG HCO3 VBG O2 Saturation VBG Base Excess Sodium 146 H Potassium 3.9 Chloride 114 H Carbon Dioxide 25 Anion Gap 11 L BUN 19 H Creatinine 1.60 H Estim Creat Clear Calc 56.8 Estimated GFR 44 POC Glucose Random Glucose 153 H Lactic Acid 0.9 Calcium 9.1 Phosphorus Magnesium Iron 10 L TIBC 162 L % Saturation 6 L Unsat Iron Binding 152 Total Bilirubin 0.5 0.6 Direct Bilirubin 0.2 AST 18 22 ALT 22 23 Alkaline Phosphatase 55 63 Lactate Dehydrogenase 264 Total Creatine Kinase 68 85 Troponin I High Sens 67.0 H Total Protein 6.7 6.7 Albumin 3.5 3.5 TSH 0.21 L Free T4 0.91 Urine Color Urine Appearance Urine pH Ur Specific [place] Urine Protein Urine Glucose (UA) Urine Ketones Urine Blood Urine Nitrite Ur Leukocyte Esterase Urine RBC Urine WBC Ur Squamous Epith Cells Urine Bacteria Hyaline Casts CSF Tube Number CSF Volume CSF Appearance CSF Color CSF WBC CSF RBC CSF Neutrophils CSF Lymphocytes CSF Monocytes % CSF Other Cells % CSF Appearance (b) CSF Glucose CSF Total Protein CSF C.neoform/gat PCR CSF CMV DNA (PCR) CSF Enterovirus (PCR) CSF E. coli K1 (PCR) CSF H. influenzae (PCR) CSF HSV I (PCR) CSF HSV II (PCR) CSF HHV 6 (PCR) CSF L.monocytogenes PCR CSF N. meningitidis PCR CSF Parechovirus (PCR) CSF S. agalactiae (PCR) CSF S. pneumoniae (PCR) CSF VZV (PCR) Respiratory Panel Rivera See Note Adenovirus (Rapid PCR) Not Detected B.pert (TEM-PCR) Not Detected B.parapertussis DNA PCR Not Detected C. pneumoniae DNA (PCR) Not Detected Coronavirus OC43 (PCR) Not Detected Coronavirus HKU1 (PCR) Not Detected Coronavirus 229E (PCR) Not Detected Coronavirus NL63 (PCR) Not Detected Human Metapneumovir PCR Not Detected Influenza A (RT-PCR) Not Detected Influenza B (RT-PCR) Not Detected M. pneumoniae (PCR) Not Detected Parainfluenza 1 (PCR) Not Detected Parainfluenza 2 (PCR) Not Detected Parainfluenza 3 (PCR) Not Detected Parainfluenza 4 (PCR) Not Detected RSV (PCR) Not Detected Entero/Rhino (PCR) Not Detected SARS-CoV-2 RNA (RT-PCR) Not Detected 01/17/24 01/17/24 01/17/24 13:54 14:04 14:26 WBC RBC Hgb Hct MCV MCH MCHC RDW Plt Count MPV Immature Gran % (Auto) Neut % (Auto) Lymph % (Auto) [place] % (Auto) Eos % (Auto) Baso % (Auto) Lymph # (Auto) [place] # (Auto) Eos # (Auto) Baso # (Auto) Abs Immat Gran (auto) Absolute Neuts (auto) Absolute Nucleated RBC Nucleated RBC % (auto) Smear Tech's Comments VBG pH 7.37 VBG pCO2 45 VBG pO2 40 VBG HCO3 26 VBG O2 Saturation 65.0 VBG Base Excess 0.9 Sodium Potassium Chloride Carbon Dioxide Anion Gap BUN Creatinine Estim Creat Clear Calc Estimated GFR POC Glucose Random Glucose Lactic Acid Calcium Phosphorus 2.9 Magnesium 1.8 Iron TIBC % Saturation Unsat Iron Binding Total Bilirubin Direct Bilirubin AST ALT Alkaline Phosphatase Lactate Dehydrogenase Total Creatine Kinase Troponin I High Sens Total Protein Albumin TSH Free T4 Urine Color Yellow Urine Appearance Turbid Urine pH 5.5 Ur Specific [place] 1.010 Urine Protein 100 (2+) H Urine Glucose (UA) Negative Urine Ketones Negative Urine Blood Moderate (2+) H Urine Nitrite Positive H Ur Leukocyte Esterase Large (3+) H Urine RBC 0-2 Urine WBC >50 H Ur Squamous Epith Cells 0-2 Urine Bacteria 4+ Hyaline Casts 3-5 CSF Tube Number CSF Volume CSF Appearance CSF Color CSF WBC CSF RBC CSF Neutrophils CSF Lymphocytes CSF Monocytes % CSF Other Cells % CSF Appearance (b) CSF Glucose CSF Total Protein CSF C.neoform/gat PCR CSF CMV DNA (PCR) CSF Enterovirus (PCR) CSF E. coli K1 (PCR) CSF H. influenzae (PCR) CSF HSV I (PCR) CSF HSV II (PCR) CSF HHV 6 (PCR) CSF L.monocytogenes PCR CSF N. meningitidis PCR CSF Parechovirus (PCR) CSF S. agalactiae (PCR) CSF S. pneumoniae (PCR) CSF VZV (PCR) Respiratory Panel [place] Adenovirus (Rapid PCR) B.pert (TEM-PCR) B.parapertussis DNA PCR C. pneumoniae DNA (PCR) Coronavirus OC43 (PCR) Coronavirus HKU1 (PCR) Coronavirus 229E (PCR) Coronavirus NL63 (PCR) Human Metapneumovir PCR Influenza A (RT-PCR) Influenza B (RT-PCR) M. pneumoniae (PCR) Parainfluenza 1 (PCR) Parainfluenza 2 (PCR) Parainfluenza 3 (PCR) Parainfluenza 4 (PCR) RSV (PCR) Entero/Rhino (PCR) SARS-CoV-2 RNA (RT-PCR) 01/17/24 01/17/24 01/17/24 16:06 16:06 16:06 WBC RBC Hgb Hct MCV MCH MCHC RDW Plt Count MPV Immature Gran % (Auto) Neut % (Auto) Lymph % (Auto) [place] % (Auto) Eos % (Auto) Baso % (Auto) Lymph # (Auto) [place] # (Auto) Eos # (Auto) Baso # (Auto) Abs Immat Gran (auto) Absolute Neuts (auto) Absolute Nucleated RBC Nucleated RBC % (auto) Smear Tech's Comments VBG pH VBG pCO2 VBG pO2 VBG HCO3 VBG O2 Saturation VBG Base Excess Sodium Potassium Chloride Carbon Dioxide Anion Gap BUN Creatinine Estim Creat Clear Calc Estimated GFR POC Glucose Random Glucose Lactic Acid Calcium Phosphorus Magnesium Iron TIBC % Saturation Unsat Iron Binding Total Bilirubin Direct Bilirubin AST ALT Alkaline Phosphatase Lactate Dehydrogenase Total Creatine Kinase Troponin I High Sens Total Protein Albumin TSH Free T4 Urine Color Urine Appearance Urine pH Ur Specific [place] Urine Protein Urine Glucose (UA) Urine Ketones Urine Blood Urine Nitrite Ur Leukocyte Esterase Urine RBC Urine WBC Ur Squamous Epith Cells Urine Bacteria Hyaline Casts CSF Tube Number 2 1 4 CSF Volume 1.5 CSF Appearance CSF Color CSF WBC CSF RBC CSF Neutrophils CSF Lymphocytes CSF Monocytes % CSF Other Cells % CSF Appearance (b) CSF Glucose CSF Total Protein CSF C.neoform/gat PCR CSF CMV DNA (PCR) CSF Enterovirus (PCR) CSF E. coli K1 (PCR) CSF H. influenzae (PCR) CSF HSV I (PCR) CSF HSV II (PCR) CSF HHV 6 (PCR) CSF L.monocytogenes PCR CSF N. meningitidis PCR CSF Parechovirus (PCR) CSF S. agalactiae (PCR) CSF S. pneumoniae (PCR) CSF VZV (PCR) Respiratory Panel [place] Adenovirus (Rapid PCR) B.pert (TEM-PCR) B.parapertussis DNA PCR C. pneumoniae DNA (PCR) Coronavirus OC43 (PCR) Coronavirus HKU1 (PCR) Coronavirus 229E (PCR) Coronavirus NL63 (PCR) Human Metapneumovir PCR Influenza A (RT-PCR) Influenza B (RT-PCR) M. pneumoniae (PCR) Parainfluenza 1 (PCR) Parainfluenza 2 (PCR) Parainfluenza 3 (PCR) Parainfluenza 4 (PCR) RSV (PCR) Entero/Rhino (PCR) SARS-CoV-2 RNA (RT-PCR) 01/17/24 01/17/24 01/17/24 16:06 16:06 16:06 WBC RBC Hgb Hct MCV MCH MCHC RDW Plt Count MPV Immature Gran % (Auto) Neut % (Auto) Lymph % (Auto) [place] % (Auto) Eos % (Auto) Baso % (Auto) Lymph # (Auto) [place] # (Auto) Eos # (Auto) Baso # (Auto) Abs Immat Gran (auto) Absolute Neuts (auto) Absolute Nucleated RBC Nucleated RBC % (auto) Smear Tech's Comments VBG pH VBG pCO2 VBG pO2 VBG HCO3 VBG O2 Saturation VBG Base Excess Sodium Potassium Chloride Carbon Dioxide Anion Gap BUN Creatinine Estim Creat Clear Calc Estimated GFR POC Glucose Random Glucose Lactic Acid Calcium Phosphorus Magnesium Iron TIBC % Saturation Unsat Iron Binding Total Bilirubin Direct Bilirubin AST ALT Alkaline Phosphatase Lactate Dehydrogenase Total Creatine Kinase Troponin I High Sens Total Protein Albumin TSH Free T4 Urine Color Urine Appearance Urine pH Ur Specific [place] Urine Protein Urine Glucose (UA) Urine Ketones Urine Blood Urine Nitrite Ur Leukocyte Esterase Urine RBC Urine WBC Ur Squamous Epith Cells Urine Bacteria Hyaline Casts CSF Tube Number CSF Volume 2.5 CSF Appearance CLEAR CLEAR CSF Color COLORLESS COLORLESS CSF WBC 6 CSF RBC CSF Neutrophils CSF Lymphocytes CSF Monocytes % CSF Other Cells % CSF Appearance (b) CSF Glucose CSF Total Protein CSF C.neoform/gat PCR CSF CMV DNA (PCR) CSF Enterovirus (PCR) CSF E. coli K1 (PCR) CSF H. influenzae (PCR) CSF HSV I (PCR) CSF HSV II (PCR) CSF HHV 6 (PCR) CSF L.monocytogenes PCR CSF N. meningitidis PCR CSF Parechovirus (PCR) CSF S. agalactiae (PCR) CSF S. pneumoniae (PCR) CSF VZV (PCR) Respiratory Panel [place] Adenovirus (Rapid PCR) B.pert (TEM-PCR) B.parapertussis DNA PCR C. pneumoniae DNA (PCR) Coronavirus OC43 (PCR) Coronavirus HKU1 (PCR) Coronavirus 229E (PCR) Coronavirus NL63 (PCR) Human Metapneumovir PCR Influenza A (RT-PCR) Influenza B (RT-PCR) M. pneumoniae (PCR) Parainfluenza 1 (PCR) Parainfluenza 2 (PCR) Parainfluenza 3 (PCR) Parainfluenza 4 (PCR) RSV (PCR) Entero/Rhino (PCR) SARS-CoV-2 RNA (RT-PCR) 01/17/24 01/17/24 01/17/24 16:06 16:06 16:06 WBC RBC Hgb Hct MCV MCH MCHC RDW Plt Count MPV Immature Gran % (Auto) Neut % (Auto) Lymph % (Auto) [place] % (Auto) Eos % (Auto) Baso % (Auto) Lymph # (Auto) [place] # (Auto) Eos # (Auto) Baso # (Auto) Abs Immat Gran (auto) Absolute Neuts (auto) Absolute Nucleated RBC Nucleated RBC % (auto) Smear Tech's Comments VBG pH VBG pCO2 VBG pO2 VBG HCO3 VBG O2 Saturation VBG Base Excess Sodium Potassium Chloride Carbon Dioxide Anion Gap BUN Creatinine Estim Creat Clear Calc Estimated GFR POC Glucose Random Glucose Lactic Acid Calcium Phosphorus Magnesium Iron TIBC % Saturation Unsat Iron Binding Total Bilirubin Direct Bilirubin AST ALT Alkaline Phosphatase Lactate Dehydrogenase Total Creatine Kinase Troponin I High Sens Total Protein Albumin TSH Free T4 Urine Color Urine Appearance Urine pH Ur Specific [place] Urine Protein Urine Glucose (UA) Urine Ketones Urine Blood Urine Nitrite Ur Leukocyte Esterase Urine RBC Urine WBC Ur Squamous Epith Cells Urine Bacteria Hyaline Casts CSF Tube Number CSF Volume CSF Appearance CSF Color CSF WBC 3 CSF RBC 0 0 CSF Neutrophils 0 0 CSF Lymphocytes 71 CSF Monocytes % CSF Other Cells % CSF Appearance (b) CSF Glucose CSF Total Protein CSF C.neoform/gat PCR CSF CMV DNA (PCR) CSF Enterovirus (PCR) CSF E. coli K1 (PCR) CSF H. influenzae (PCR) CSF HSV I (PCR) CSF HSV II (PCR) CSF HHV 6 (PCR) CSF L.monocytogenes PCR CSF N. meningitidis PCR CSF Parechovirus (PCR) CSF S. agalactiae (PCR) CSF S. pneumoniae (PCR) CSF VZV (PCR) Respiratory Panel [place] Adenovirus (Rapid PCR) B.pert (TEM-PCR) B.parapertussis DNA PCR C. pneumoniae DNA (PCR) Coronavirus OC43 (PCR) Coronavirus HKU1 (PCR) Coronavirus 229E (PCR) Coronavirus NL63 (PCR) Human Metapneumovir PCR Influenza A (RT-PCR) Influenza B (RT-PCR) M. pneumoniae (PCR) Parainfluenza 1 (PCR) Parainfluenza 2 (PCR) Parainfluenza 3 (PCR) Parainfluenza 4 (PCR) RSV (PCR) Entero/Rhino (PCR) SARS-CoV-2 RNA (RT-PCR) 01/17/24 01/17/24 01/17/24 16:06 16:06 16:06 WBC RBC Hgb Hct MCV MCH MCHC RDW Plt Count MPV Immature Gran % (Auto) Neut % (Auto) Lymph % (Auto) [place] % (Auto) Eos % (Auto) Baso % (Auto) Lymph # (Auto) [place] # (Auto) Eos # (Auto) Baso # (Auto) Abs Immat Gran (auto) Absolute Neuts (auto) Absolute Nucleated RBC Nucleated RBC % (auto) Smear Tech's Comments VBG pH VBG pCO2 VBG pO2 VBG HCO3 VBG O2 Saturation VBG Base Excess Sodium Potassium Chloride Carbon Dioxide Anion Gap BUN Creatinine Estim Creat Clear Calc Estimated GFR POC Glucose Random Glucose Lactic Acid Calcium Phosphorus Magnesium Iron TIBC % Saturation Unsat Iron Binding Total Bilirubin Direct Bilirubin AST ALT Alkaline Phosphatase Lactate Dehydrogenase Total Creatine Kinase Troponin I High Sens Total Protein Albumin TSH Free T4 Urine Color Urine Appearance Urine pH Ur Specific [place] Urine Protein Urine Glucose (UA) Urine Ketones Urine Blood Urine Nitrite Ur Leukocyte Esterase Urine RBC Urine WBC Ur Squamous Epith Cells Urine Bacteria Hyaline Casts CSF Tube Number CSF Volume CSF Appearance CSF Color CSF WBC CSF RBC CSF Neutrophils CSF Lymphocytes 52 CSF Monocytes % 19 32 CSF Other Cells % 10 16 CSF Appearance (b) Clear, Colorless CSF Glucose 91 CSF Total Protein 35.7 CSF C.neoform/gat PCR Not Detected CSF CMV DNA (PCR) Not Detected CSF Enterovirus (PCR) Not Detected CSF E. coli K1 (PCR) Not Detected CSF H. influenzae (PCR) Not Detected CSF HSV I (PCR) Not Detected CSF HSV II (PCR) Not Detected CSF HHV 6 (PCR) Not Detected CSF L.monocytogenes PCR Not Detected CSF N. meningitidis PCR Not Detected CSF Parechovirus (PCR) Not Detected CSF S. agalactiae (PCR) Not Detected CSF S. pneumoniae (PCR) Not Detected CSF VZV (PCR) Not Detected Respiratory Panel [place] Adenovirus (Rapid PCR) B.pert (TEM-PCR) B.parapertussis DNA PCR C. pneumoniae DNA (PCR) Coronavirus OC43 (PCR) Coronavirus HKU1 (PCR) Coronavirus 229E (PCR) Coronavirus NL63 (PCR) Human Metapneumovir PCR Influenza A (RT-PCR) Influenza B (RT-PCR) M. pneumoniae (PCR) Parainfluenza 1 (PCR) Parainfluenza 2 (PCR) Parainfluenza 3 (PCR) Parainfluenza 4 (PCR) RSV (PCR) Entero/Rhino (PCR) SARS-CoV-2 RNA (RT-PCR) 01/17/24 01/17/24 01/18/24 16:20 20:32 04:55 WBC 4.3 L RBC 4.04 L Hgb 10.9 L Hct 34.9 L MCV 86.4 MCH 27.0 MCHC 31.2 RDW 15.3 Plt Count 62 L D MPV 12.8 H Immature Gran % (Auto) 0.2 Neut % (Auto) 69.3 Lymph % (Auto) 11.9 L [place] % (Auto) 17.9 H Eos % (Auto) 0.2 Baso % (Auto) 0.5 Lymph # (Auto) 0.5 L [place] # (Auto) 0.8 Eos # (Auto) 0.0 Baso # (Auto) 0.0 Abs Immat Gran (auto) 0.01 Absolute Neuts (auto) 3.0 Absolute Nucleated RBC 0.000 Nucleated RBC % (auto) 0.0 Smear Tech's Comments VERIFIED VBG pH VBG pCO2 VBG pO2 VBG HCO3 VBG O2 Saturation VBG Base Excess Sodium 146 H Potassium 4.3 Chloride 117 H Carbon Dioxide 21 L Anion Gap 12 BUN 18 H Creatinine 0.98 Estim Creat Clear Calc 92.8 Estimated GFR > 60 POC Glucose 123 H 142 H Random Glucose 130 H Lactic Acid Calcium 9.2 Phosphorus 3.2 Magnesium 2.1 Iron TIBC % Saturation Unsat Iron Binding Total Bilirubin Direct Bilirubin AST ALT Alkaline Phosphatase Lactate Dehydrogenase Total Creatine Kinase Troponin I High Sens Total Protein Albumin TSH Free T4 Urine Color Urine Appearance Urine pH Ur Specific [place] Urine Protein Urine Glucose (UA) Urine Ketones Urine Blood Urine Nitrite Ur Leukocyte Esterase Urine RBC Urine WBC Ur Squamous Epith Cells Urine Bacteria Hyaline Casts CSF Tube Number CSF Volume CSF Appearance CSF Color CSF WBC CSF RBC CSF Neutrophils CSF Lymphocytes CSF Monocytes % CSF Other Cells % CSF Appearance (b) CSF Glucose CSF Total Protein CSF C.neoform/gat PCR CSF CMV DNA (PCR) CSF Enterovirus (PCR) CSF E. coli K1 (PCR) CSF H. influenzae (PCR) CSF HSV I (PCR) CSF HSV II (PCR) CSF HHV 6 (PCR) CSF L.monocytogenes PCR CSF N. meningitidis PCR CSF Parechovirus (PCR) CSF S. agalactiae (PCR) CSF S. pneumoniae (PCR) CSF VZV (PCR) Respiratory Panel [place] Adenovirus (Rapid PCR) B.pert (TEM-PCR) B.parapertussis DNA PCR C. pneumoniae DNA (PCR) Coronavirus OC43 (PCR) Coronavirus HKU1 (PCR) Coronavirus 229E (PCR) Coronavirus NL63 (PCR) Human Metapneumovir PCR Influenza A (RT-PCR) Influenza B (RT-PCR) M. pneumoniae (PCR) Parainfluenza 1 (PCR) Parainfluenza 2 (PCR) Parainfluenza 3 (PCR) Parainfluenza 4 (PCR) RSV (PCR) Entero/Rhino (PCR) SARS-CoV-2 RNA (RT-PCR) 01/18/24 01/18/24 07:15 11:05 WBC RBC Hgb Hct MCV MCH MCHC RDW Plt Count MPV Immature Gran % (Auto) Neut % (Auto) Lymph % (Auto) [place] % (Auto) Eos % (Auto) Baso % (Auto) Lymph # (Auto) [place] # (Auto) Eos # (Auto) Baso # (Auto) Abs Immat Gran (auto) Absolute Neuts (auto) Absolute Nucleated RBC Nucleated RBC % (auto) Smear Tech's Comments VBG pH VBG pCO2 VBG pO2 VBG HCO3 VBG O2 Saturation VBG Base Excess Sodium Potassium Chloride Carbon Dioxide Anion Gap BUN Creatinine Estim Creat Clear Calc Estimated GFR POC Glucose 96 181 H Random Glucose Lactic Acid Calcium Phosphorus Magnesium Iron TIBC % Saturation Unsat Iron Binding Total Bilirubin Direct Bilirubin AST ALT Alkaline Phosphatase Lactate Dehydrogenase Total Creatine Kinase Troponin I High Sens Total Protein Albumin TSH Free T4 Urine Color Urine Appearance Urine pH Ur Specific [place] Urine Protein Urine Glucose (UA) Urine Ketones Urine Blood Urine Nitrite Ur Leukocyte Esterase Urine RBC Urine WBC Ur Squamous Epith Cells Urine Bacteria Hyaline Casts CSF Tube Number CSF Volume CSF Appearance CSF Color CSF WBC CSF RBC CSF Neutrophils CSF Lymphocytes CSF Monocytes % CSF Other Cells % CSF Appearance (b) CSF Glucose CSF Total Protein CSF C.neoform/gat PCR CSF CMV DNA (PCR) CSF Enterovirus (PCR) CSF E. coli K1 (PCR) CSF H. influenzae (PCR) CSF HSV I (PCR) CSF HSV II (PCR) CSF HHV 6 (PCR) CSF L.monocytogenes PCR CSF N. meningitidis PCR CSF Parechovirus (PCR) CSF S. agalactiae (PCR) CSF S. pneumoniae (PCR) CSF VZV (PCR) Respiratory Panel [place] Adenovirus (Rapid PCR) B.pert (TEM-PCR) B.parapertussis DNA PCR C. pneumoniae DNA (PCR) Coronavirus OC43 (PCR) Coronavirus HKU1 (PCR) Coronavirus 229E (PCR) Coronavirus NL63 (PCR) Human Metapneumovir PCR Influenza A (RT-PCR) Influenza B (RT-PCR) M. pneumoniae (PCR) Parainfluenza 1 (PCR) Parainfluenza 2 (PCR) Parainfluenza 3 (PCR) Parainfluenza 4 (PCR) RSV (PCR) Entero/Rhino (PCR) SARS-CoV-2 RNA (RT-PCR) Imaging Radiologist's impression: Impressions Abdomen/Pelvis CT 01/17/24 16:20 IMPRESSION: Study is limited. Motion precludes detail. There are extensive infiltrates throughout both lungs. No abscess. No pneumoperitoneum. Chest CT 01/17/24 16:20 IMPRESSION: Study is limited. Motion precludes detail. There are extensive infiltrates throughout both lungs. No abscess. No pneumoperitoneum. Head CT 01/17/24 16:20 IMPRESSION: 1. Evaluation is limited by motion. However, accounting for these limitations, there is no evidence of acute intracranial hemorrhage or edematous territorial infarction. 2. Paranasal sinus disease. 3. Possible bilateral exophthalmos, correlate with physical examination. Progress Note: A&P Assessment and plan (1) Fever: Status: Acute (2) HOCM (hypertrophic obstructive cardiomyopathy): Status: Acute Plan [age] year gentleman with hypertrophic cardiomyopathy presenting with sepsis. He had high fevers and was encephalopathic and was monitored in the ICU. On broad-spectrum antibiotics is improving. Hemodynamically stable. With hypertrophic obstructive cardiomyopathy, decreasing preload or afterload both can lead to more obstruction and hypotension. Volume status should be maintained. If he requires pressors, vasopressin phenylephrine should be used as 1st line agents. Thank you for allowing me to participate in the care of your patient. Please feel free to contact me if you have any questions. Time Spent With Patient Time: Total time managing care of this patient today ____ minutes. Progress Note: Quality Stroke Does the patient have a stroke diagnosis?: No Procedures Date of Service Date of Service: 01/18/24
[2024-01-18] MEDS: Insulin Lispro 100 UNIT/ML 3 ML VIAL SUBCUT ×2 (12:11→16:49)
--- NOTE | 2024-01-18 12:50 | P.PNIM_ITS ---
Subjective Subjective Date of Service: 01/18/24 Interval History: transferred to ICU overnight T 100 this am now much more awake/alert/interactive Review of Systems Review of Systems: Yes all other systems are reviewed and are negative Physical Exam 2 Vital Signs: Vital Signs: Last Vital Signs Temp 97.1 F 01/18/24 12:00 Pulse 87 01/18/24 12:00 Resp 18 01/18/24 12:00 BP 133/77 01/18/24 12:00 Pulse Ox 96 01/18/24 12:00 O2 Del Method Nasal Cannula 01/18/24 12:00 O2 Flow Rate 2 01/18/24 12:00 BMI result Body Mass Index 34.3 Gen NAD HEENT: sclera anicteric Neck: supple Lungs: clear to auscultation bilaterally Heart: regular, systolic murmur along LSB Abd: soft, non-tender, non-distended Ext: no edema Skin: warm/well-perfused Neuro: oriented to self and place, moving all extremities Psych: normal affect Objective Data Active Medications Al Hydroxide/Mg Hydroxide (Magnesium Hydrox/Alum Hydrox 30 Ml Oral.Susp) 10 ml PO TID PRN PRN Reason: Indigestion Albuterol Sulfate (Albuterol Sulfate 90 Mcg 8 Gm Inhaler) 2 puff INHALE Q6H PRN PRN Reason: Shortness Of Breath Or Wheezing Aspirin (Aspirin Enteric Coated 81 Mg Tablet.) 81 mg PO DAILY@08 [facility] Last Admin: 01/17/24 08:16 Dose: 81 mg Documented By: HOWIE Atorvastatin Calcium (Atorvastatin Calcium 20 Mg Tablet) 20 mg PO DAILY@1999 [facility] Last Admin: 01/17/24 20:16 Dose: 20 mg Documented By: LUIS Docusate Sodium (Docusate Sodium 100 Mg Capsule) 100 mg PO BID@799,1999 [facility] Last Admin: 01/18/24 08:53 Dose: 100 mg Documented By: NINIFATamar Glucose (Glucose Gel 15 Gm Gel..Gram.) 15 gm PO Q15M PRN; Protocol PRN Reason: per Hypoglycemia Standing Ord. Dextrose (D10) 250 mls @ 750 mls/hr IV Q15M PRN; Protocol PRN Reason: per Hypoglycemia Standing Ord. Lactated Ringer's (Lr) 1,000 mls @ 125 mls/hr IVCONT .Q8H [facility] Last Admin: 01/18/24 12:06 Dose: 125 mls/hr Documented By: YULI Acetaminophen (Ofirmev) 1,000 mg in 100 mls @ 400 mls/hr IV Q6H [facility] Last Infusion: 01/18/24 12:41 Dose: Infused Documented By: YULI Cefepime HCl 2 gm/ Sodium (Chloride) 50 mls @ 100 mls/hr IV Q12H [facility] Last Infusion: 01/18/24 01:51 Dose: Infused Documented By: LUIS Vancomycin HCl 750 mg/ Sodium (Chloride) 265 mls @ 265 mls/hr IV Q12H [facility] Insulin Human Lispro (Insulin Lispro 100 Unit/Ml 3 Ml Vial) 0 unit SUBCUT QIDACHS [facility]; Protocol Last Admin: 01/18/24 12:11 Dose: 2 unit Documented By: YULI Lorazepam (Lorazepam 2 Mg/Ml Vial) 1 mg IVPUSH Q8H PRN PRN Reason: Agitation Magnesium Hydroxide (Milk Of Magnesia 30 Ml Oral.Susp) 30 ml PO DAILY PRN PRN Reason: Constipation Metoprolol Tartrate (Metoprolol Tartrate 50 Mg Tablet) 50 mg PO QID [facility]; Protocol Last Admin: 01/17/24 08:16 Dose: 50 mg Documented By: HOWIE Metoprolol Tartrate (Metoprolol Tartrate 5 Mg/5 Ml Vial) 5 mg IVPUSH Q6H [facility] Last Admin: 01/17/24 12:24 Dose: Not Given Documented By: HOWIE Non-Admin Reason: recieved dose aleady this AM Midazolam HCl (Midazolam Hcl/Pf 2 Mg/2 Ml Vial) 2 mg IVPUSH Q1H PRN PRN Reason: Agitation Last Admin: 01/17/24 20:38 Dose: 2 mg Documented By: LUIS Nicotine (Nicotine 21 Mg Patch.Td24) 21 mg TRANSDERMA DAILY PRN PRN Reason: smoking cessation Nicotine Polacrilex (Nicotine Polacrilex 2 Mg Gum) 4 mg BUCCAL Q2H PRN PRN Reason: Nicotine Cravings Omeprazole (Omeprazole 20 Mg Capsule.Dr) 20 mg PO BID@0630,1630 [facility] Last Admin: 01/18/24 08:53 Dose: 20 mg Documented By: ROSARIO Ondansetron HCl (Ondansetron Hcl 4 Mg/2 Ml Vial) 4 mg IVPUSH Q8H PRN PRN Reason: Nausea and Vomiting Pharmacy Consult (Consult Rx Vancomycin Dosing) 1 each MISCELLANE DAILY PRN PRN Reason: Consult order Polyethylene Glycol (Polyethylene Glycol 3350 17 Gm Powd.Pack) 17 gm PO DAILY PRN PRN Reason: Constipation Polyethylene Glycol (Polyethylene Glycol 3350 17 Gm Powd.Pack) 17 gm PO DAILY [facility] Last Admin: 01/18/24 08:52 Dose: 17 gm Documented By: ROSARIO Quetiapine Fumarate (Quetiapine Fumarate 25 Mg Tablet) 25 mg PO BID [facility] Last Admin: 01/18/24 08:52 Dose: 25 mg Documented By: ROSARIO Senna/Docusate Sodium (Sennosides/Docusate Sodium Tablet) 2 tab PO DAILY [facility] Last Admin: 01/18/24 08:52 Dose: 2 tab Documented By: ROSARIO Sodium Chloride (0.9 % Sodium Chloride Flush 3 Ml Syringe) 3 ml IVFLUSH QSHIFT [facility] Last Admin: 01/18/24 08:48 Dose: Not Given Documented By: ROSARIO Non-Admin Reason: IV Running Tamsulosin HCl (Tamsulosin Hcl 0.4 Mg Capsule) 0.4 mg PO DAILY@1999 [facility] Last Admin: 01/17/24 20:16 Dose: 0.4 mg Documented By: LUIS Trazodone HCl (Trazodone Hcl 50 Mg Tablet) 50 mg PO DAILY@1999 [facility] Last Admin: 01/16/24 23:16 Dose: 50 mg Documented By: SINDHU Trazodone HCl (Trazodone Hcl 50 Mg Tablet) 50 mg PO BEDTIME MRX1 PRN PRN Reason: Insomnia Last Admin: 01/16/24 22:30 Dose: 50 mg Documented By: SINDHU Comments: no relief after scheduled dose. Vitamin D (Cholecalciferol (Vitamin D3) 25 Mcg Tablet) 25 mcg PO DAILY@0800 [facility] Last Admin: 01/18/24 08:52 Dose: 25 mcg Documented By: ROSARIO Labs 01/18/24 04:55 01/18/24 04:55 Labs: Laboratory Results - last 24 hr 01/17/24 01/17/24 01/17/24 11:27 13:53 13:54 MCV 86.7 MCH 27.1 MCHC 31.3 RDW 15.3 Plt Count 84 L MPV 13.0 H Immature Gran % (Auto) 0.6 H Neut % (Auto) 86.7 H Lymph % (Auto) 5.9 L Hill % (Auto) 6.5 Eos % (Auto) 0.0 Baso % (Auto) 0.3 Lymph # (Auto) 0.4 L Hill # (Auto) 0.4 Eos # (Auto) 0.0 Baso # (Auto) 0.0 Abs Immat Gran (auto) 0.04 H Absolute Neuts (auto) 5.6 Absolute Nucleated RBC 0.000 Nucleated RBC % (auto) 0.0 Smear Tech's Comments VBG pH VBG pCO2 VBG pO2 VBG HCO3 VBG O2 Saturation VBG Base Excess Anion Gap 11 L Estim Creat Clear Calc 56.8 Estimated GFR 44 POC Glucose Random Glucose 153 H Lactic Acid 0.9 Calcium 9.1 Phosphorus 2.9 Magnesium 1.8 Iron 10 L TIBC 162 L % Saturation 6 L Unsat Iron Binding 152 Total Bilirubin 0.6 AST 22 ALT 23 Alkaline Phosphatase 63 Total Creatine Kinase 85 Troponin I High Sens 67.0 H Total Protein 6.7 Albumin 3.5 TSH 0.21 L Free T4 0.91 Urine Color Urine Appearance Urine pH Ur Specific [place] Urine Protein Urine Glucose (UA) Urine Ketones Urine Blood Urine Nitrite Ur Leukocyte Esterase Urine RBC Urine WBC Ur Squamous Epith Cells Urine Bacteria Hyaline Casts CSF Tube Number CSF Volume CSF Appearance CSF Color CSF WBC CSF RBC CSF Neutrophils CSF Lymphocytes CSF Monocytes % CSF Other Cells % CSF Appearance (b) CSF Glucose CSF Total Protein CSF C.neoform/gat PCR CSF CMV DNA (PCR) CSF Enterovirus (PCR) CSF E. coli K1 (PCR) CSF H. influenzae (PCR) CSF HSV I (PCR) CSF HSV II (PCR) CSF HHV 6 (PCR) CSF L.monocytogenes PCR CSF N. meningitidis PCR CSF Parechovirus (PCR) CSF S. agalactiae (PCR) CSF S. pneumoniae (PCR) CSF VZV (PCR) Respiratory Panel Rivera See Note Adenovirus (Rapid PCR) Not Detected B.pert (TEM-PCR) Not Detected B.parapertussis DNA PCR Not Detected C. pneumoniae DNA (PCR) Not Detected Coronavirus OC43 (PCR) Not Detected Coronavirus HKU1 (PCR) Not Detected Coronavirus 229E (PCR) Not Detected Coronavirus NL63 (PCR) Not Detected Human Metapneumovir PCR Not Detected Influenza A (RT-PCR) Not Detected Influenza B (RT-PCR) Not Detected M. pneumoniae (PCR) Not Detected Parainfluenza 1 (PCR) Not Detected Parainfluenza 2 (PCR) Not Detected Parainfluenza 3 (PCR) Not Detected Parainfluenza 4 (PCR) Not Detected RSV (PCR) Not Detected Entero/Rhino (PCR) Not Detected SARS-CoV-2 RNA (RT-PCR) Not Detected 01/17/24 01/17/24 01/17/24 14:04 14:26 16:06 MCV MCH MCHC RDW Plt Count MPV Immature Gran % (Auto) Neut % (Auto) Lymph % (Auto) Hill % (Auto) Eos % (Auto) Baso % (Auto) Lymph # (Auto) Hill # (Auto) Eos # (Auto) Baso # (Auto) Abs Immat Gran (auto) Absolute Neuts (auto) Absolute Nucleated RBC Nucleated RBC % (auto) Smear Tech's Comments VBG pH 7.37 VBG pCO2 45 VBG pO2 40 VBG HCO3 26 VBG O2 Saturation 65.0 VBG Base Excess 0.9 Anion Gap Estim Creat Clear Calc Estimated GFR POC Glucose Random Glucose Lactic Acid Calcium Phosphorus Magnesium Iron TIBC % Saturation Unsat Iron Binding Total Bilirubin AST ALT Alkaline Phosphatase Total Creatine Kinase Troponin I High Sens Total Protein Albumin TSH Free T4 Urine Color Yellow Urine Appearance Turbid Urine pH 5.5 Ur Specific [place] 1.010 Urine Protein 100 (2+) H Urine Glucose (UA) Negative Urine Ketones Negative Urine Blood Moderate (2+) H Urine Nitrite Positive H Ur Leukocyte Esterase Large (3+) H Urine RBC 0-2 Urine WBC >50 H Ur Squamous Epith Cells 0-2 Urine Bacteria 4+ Hyaline Casts 3-5 CSF Tube Number 2 CSF Volume CSF Appearance CSF Color CSF WBC CSF RBC CSF Neutrophils CSF Lymphocytes CSF Monocytes % CSF Other Cells % CSF Appearance (b) CSF Glucose CSF Total Protein CSF C.neoform/gat PCR CSF CMV DNA (PCR) CSF Enterovirus (PCR) CSF E. coli K1 (PCR) CSF H. influenzae (PCR) CSF HSV I (PCR) CSF HSV II (PCR) CSF HHV 6 (PCR) CSF L.monocytogenes PCR CSF N. meningitidis PCR CSF Parechovirus (PCR) CSF S. agalactiae (PCR) CSF S. pneumoniae (PCR) CSF VZV (PCR) Respiratory Panel Rivera Adenovirus (Rapid PCR) B.pert (TEM-PCR) B.parapertussis DNA PCR C. pneumoniae DNA (PCR) Coronavirus OC43 (PCR) Coronavirus HKU1 (PCR) Coronavirus 229E (PCR) Coronavirus NL63 (PCR) Human Metapneumovir PCR Influenza A (RT-PCR) Influenza B (RT-PCR) M. pneumoniae (PCR) Parainfluenza 1 (PCR) Parainfluenza 2 (PCR) Parainfluenza 3 (PCR) Parainfluenza 4 (PCR) RSV (PCR) Entero/Rhino (PCR) SARS-CoV-2 RNA (RT-PCR) 01/17/24 01/17/24 01/17/24 16:06 16:06 16:06 MCV MCH MCHC RDW Plt Count MPV Immature Gran % (Auto) Neut % (Auto) Lymph % (Auto) Hill % (Auto) Eos % (Auto) Baso % (Auto) Lymph # (Auto) Hill # (Auto) Eos # (Auto) Baso # (Auto) Abs Immat Gran (auto) Absolute Neuts (auto) Absolute Nucleated RBC Nucleated RBC % (auto) Smear Tech's Comments VBG pH VBG pCO2 VBG pO2 VBG HCO3 VBG O2 Saturation VBG Base Excess Anion Gap Estim Creat Clear Calc Estimated GFR POC Glucose Random Glucose Lactic Acid Calcium Phosphorus Magnesium Iron TIBC % Saturation Unsat Iron Binding Total Bilirubin AST ALT Alkaline Phosphatase Total Creatine Kinase Troponin I High Sens Total Protein Albumin TSH Free T4 Urine Color Urine Appearance Urine pH Ur Specific [place] Urine Protein Urine Glucose (UA) Urine Ketones Urine Blood Urine Nitrite Ur Leukocyte Esterase Urine RBC Urine WBC Ur Squamous Epith Cells Urine Bacteria Hyaline Casts CSF Tube Number 1 4 CSF Volume 1.5 2.5 CSF Appearance CLEAR CSF Color CSF WBC CSF RBC CSF Neutrophils CSF Lymphocytes CSF Monocytes % CSF Other Cells % CSF Appearance (b) CSF Glucose CSF Total Protein CSF C.neoform/gat PCR CSF CMV DNA (PCR) CSF Enterovirus (PCR) CSF E. coli K1 (PCR) CSF H. influenzae (PCR) CSF HSV I (PCR) CSF HSV II (PCR) CSF HHV 6 (PCR) CSF L.monocytogenes PCR CSF N. meningitidis PCR CSF Parechovirus (PCR) CSF S. agalactiae (PCR) CSF S. pneumoniae (PCR) CSF VZV (PCR) Respiratory Panel Rivera Adenovirus (Rapid PCR) B.pert (TEM-PCR) B.parapertussis DNA PCR C. pneumoniae DNA (PCR) Coronavirus OC43 (PCR) Coronavirus HKU1 (PCR) Coronavirus 229E (PCR) Coronavirus NL63 (PCR) Human Metapneumovir PCR Influenza A (RT-PCR) Influenza B (RT-PCR) M. pneumoniae (PCR) Parainfluenza 1 (PCR) Parainfluenza 2 (PCR) Parainfluenza 3 (PCR) Parainfluenza 4 (PCR) RSV (PCR) Entero/Rhino (PCR) SARS-CoV-2 RNA (RT-PCR) 01/17/24 01/17/24 01/17/24 16:06 16:06 16:06 MCV MCH MCHC RDW Plt Count MPV Immature Gran % (Auto) Neut % (Auto) Lymph % (Auto) Hill % (Auto) Eos % (Auto) Baso % (Auto) Lymph # (Auto) Hill # (Auto) Eos # (Auto) Baso # (Auto) Abs Immat Gran (auto) Absolute Neuts (auto) Absolute Nucleated RBC Nucleated RBC % (auto) Smear Tech's Comments VBG pH VBG pCO2 VBG pO2 VBG HCO3 VBG O2 Saturation VBG Base Excess Anion Gap Estim Creat Clear Calc Estimated GFR POC Glucose Random Glucose Lactic Acid Calcium Phosphorus Magnesium Iron TIBC % Saturation Unsat Iron Binding Total Bilirubin AST ALT Alkaline Phosphatase Total Creatine Kinase Troponin I High Sens Total Protein Albumin TSH Free T4 Urine Color Urine Appearance Urine pH Ur Specific [place] Urine Protein Urine Glucose (UA) Urine Ketones Urine Blood Urine Nitrite Ur Leukocyte Esterase Urine RBC Urine WBC Ur Squamous Epith Cells Urine Bacteria Hyaline Casts CSF Tube Number CSF Volume CSF Appearance CLEAR CSF Color COLORLESS COLORLESS CSF WBC 6 3 CSF RBC 0 CSF Neutrophils CSF Lymphocytes CSF Monocytes % CSF Other Cells % CSF Appearance (b) CSF Glucose CSF Total Protein CSF C.neoform/gat PCR CSF CMV DNA (PCR) CSF Enterovirus (PCR) CSF E. coli K1 (PCR) CSF H. influenzae (PCR) CSF HSV I (PCR) CSF HSV II (PCR) CSF HHV 6 (PCR) CSF L.monocytogenes PCR CSF N. meningitidis PCR CSF Parechovirus (PCR) CSF S. agalactiae (PCR) CSF S. pneumoniae (PCR) CSF VZV (PCR) Respiratory Panel Rivera Adenovirus (Rapid PCR) B.pert (TEM-PCR) B.parapertussis DNA PCR C. pneumoniae DNA (PCR) Coronavirus OC43 (PCR) Coronavirus HKU1 (PCR) Coronavirus 229E (PCR) Coronavirus NL63 (PCR) Human Metapneumovir PCR Influenza A (RT-PCR) Influenza B (RT-PCR) M. pneumoniae (PCR) Parainfluenza 1 (PCR) Parainfluenza 2 (PCR) Parainfluenza 3 (PCR) Parainfluenza 4 (PCR) RSV (PCR) Entero/Rhino (PCR) SARS-CoV-2 RNA (RT-PCR) 01/17/24 01/17/24 01/17/24 16:06 16:06 16:06 MCV MCH MCHC RDW Plt Count MPV Immature Gran % (Auto) Neut % (Auto) Lymph % (Auto) Hill % (Auto) Eos % (Auto) Baso % (Auto) Lymph # (Auto) Hill # (Auto) Eos # (Auto) Baso # (Auto) Abs Immat Gran (auto) Absolute Neuts (auto) Absolute Nucleated RBC Nucleated RBC % (auto) Smear Tech's Comments VBG pH VBG pCO2 VBG pO2 VBG HCO3 VBG O2 Saturation VBG Base Excess Anion Gap Estim Creat Clear Calc Estimated GFR POC Glucose Random Glucose Lactic Acid Calcium Phosphorus Magnesium Iron TIBC % Saturation Unsat Iron Binding Total Bilirubin AST ALT Alkaline Phosphatase Total Creatine Kinase Troponin I High Sens Total Protein Albumin TSH Free T4 Urine Color Urine Appearance Urine pH Ur Specific [place] Urine Protein Urine Glucose (UA) Urine Ketones Urine Blood Urine Nitrite Ur Leukocyte Esterase Urine RBC Urine WBC Ur Squamous Epith Cells Urine Bacteria Hyaline Casts CSF Tube Number CSF Volume CSF Appearance CSF Color CSF WBC CSF RBC 0 CSF Neutrophils 0 0 CSF Lymphocytes 71 52 CSF Monocytes % 19 CSF Other Cells % CSF Appearance (b) CSF Glucose CSF Total Protein CSF C.neoform/gat PCR CSF CMV DNA (PCR) CSF Enterovirus (PCR) CSF E. coli K1 (PCR) CSF H. influenzae (PCR) CSF HSV I (PCR) CSF HSV II (PCR) CSF HHV 6 (PCR) CSF L.monocytogenes PCR CSF N. meningitidis PCR CSF Parechovirus (PCR) CSF S. agalactiae (PCR) CSF S. pneumoniae (PCR) CSF VZV (PCR) Respiratory Panel Rivera Adenovirus (Rapid PCR) B.pert (TEM-PCR) B.parapertussis DNA PCR C. pneumoniae DNA (PCR) Coronavirus OC43 (PCR) Coronavirus HKU1 (PCR) Coronavirus 229E (PCR) Coronavirus NL63 (PCR) Human Metapneumovir PCR Influenza A (RT-PCR) Influenza B (RT-PCR) M. pneumoniae (PCR) Parainfluenza 1 (PCR) Parainfluenza 2 (PCR) Parainfluenza 3 (PCR) Parainfluenza 4 (PCR) RSV (PCR) Entero/Rhino (PCR) SARS-CoV-2 RNA (RT-PCR) 01/17/24 01/17/24 01/17/24 16:06 16:06 16:20 MCV MCH MCHC RDW Plt Count MPV Immature Gran % (Auto) Neut % (Auto) Lymph % (Auto) Hill % (Auto) Eos % (Auto) Baso % (Auto) Lymph # (Auto) Hill # (Auto) Eos # (Auto) Baso # (Auto) Abs Immat Gran (auto) Absolute Neuts (auto) Absolute Nucleated RBC Nucleated RBC % (auto) Smear Tech's Comments VBG pH VBG pCO2 VBG pO2 VBG HCO3 VBG O2 Saturation VBG Base Excess Anion Gap Estim Creat Clear Calc Estimated GFR POC Glucose 123 H Random Glucose Lactic Acid Calcium Phosphorus Magnesium Iron TIBC % Saturation Unsat Iron Binding Total Bilirubin AST ALT Alkaline Phosphatase Total Creatine Kinase Troponin I High Sens Total Protein Albumin TSH Free T4 Urine Color Urine Appearance Urine pH Ur Specific [place] Urine Protein Urine Glucose (UA) Urine Ketones Urine Blood Urine Nitrite Ur Leukocyte Esterase Urine RBC Urine WBC Ur Squamous Epith Cells Urine Bacteria Hyaline Casts CSF Tube Number CSF Volume CSF Appearance CSF Color CSF WBC CSF RBC CSF Neutrophils CSF Lymphocytes CSF Monocytes % 32 CSF Other Cells % 10 16 CSF Appearance (b) Clear, Colorless CSF Glucose 91 CSF Total Protein 35.7 CSF C.neoform/gat PCR Not Detected CSF CMV DNA (PCR) Not Detected CSF Enterovirus (PCR) Not Detected CSF E. coli K1 (PCR) Not Detected CSF H. influenzae (PCR) Not Detected CSF HSV I (PCR) Not Detected CSF HSV II (PCR) Not Detected CSF HHV 6 (PCR) Not Detected CSF L.monocytogenes PCR Not Detected CSF N. meningitidis PCR Not Detected CSF Parechovirus (PCR) Not Detected CSF S. agalactiae (PCR) Not Detected CSF S. pneumoniae (PCR) Not Detected CSF VZV (PCR) Not Detected Respiratory Panel Rivera Adenovirus (Rapid PCR) B.pert (TEM-PCR) B.parapertussis DNA PCR C. pneumoniae DNA (PCR) Coronavirus OC43 (PCR) Coronavirus HKU1 (PCR) Coronavirus 229E (PCR) Coronavirus NL63 (PCR) Human Metapneumovir PCR Influenza A (RT-PCR) Influenza B (RT-PCR) M. pneumoniae (PCR) Parainfluenza 1 (PCR) Parainfluenza 2 (PCR) Parainfluenza 3 (PCR) Parainfluenza 4 (PCR) RSV (PCR) Entero/Rhino (PCR) SARS-CoV-2 RNA (RT-PCR) 01/17/24 01/18/24 01/18/24 20:32 04:55 07:15 MCV 86.4 MCH 27.0 MCHC 31.2 RDW 15.3 Plt Count 62 L D MPV 12.8 H Immature Gran % (Auto) 0.2 Neut % (Auto) 69.3 Lymph % (Auto) 11.9 L Hill % (Auto) 17.9 H Eos % (Auto) 0.2 Baso % (Auto) 0.5 Lymph # (Auto) 0.5 L Hill # (Auto) 0.8 Eos # (Auto) 0.0 Baso # (Auto) 0.0 Abs Immat Gran (auto) 0.01 Absolute Neuts (auto) 3.0 Absolute Nucleated RBC 0.000 Nucleated RBC % (auto) 0.0 Smear Tech's Comments VERIFIED VBG pH VBG pCO2 VBG pO2 VBG HCO3 VBG O2 Saturation VBG Base Excess Anion Gap 12 Estim Creat Clear Calc 92.8 Estimated GFR > 60 POC Glucose 142 H 96 Random Glucose 130 H Lactic Acid Calcium 9.2 Phosphorus 3.2 Magnesium 2.1 Iron TIBC % Saturation Unsat Iron Binding Total Bilirubin AST ALT Alkaline Phosphatase Total Creatine Kinase Troponin I High Sens Total Protein Albumin TSH Free T4 Urine Color Urine Appearance Urine pH Ur Specific [place] Urine Protein Urine Glucose (UA) Urine Ketones Urine Blood Urine Nitrite Ur Leukocyte Esterase Urine RBC Urine WBC Ur Squamous Epith Cells Urine Bacteria Hyaline Casts CSF Tube Number CSF Volume CSF Appearance CSF Color CSF WBC CSF RBC CSF Neutrophils CSF Lymphocytes CSF Monocytes % CSF Other Cells % CSF Appearance (b) CSF Glucose CSF Total Protein CSF C.neoform/gat PCR CSF CMV DNA (PCR) CSF Enterovirus (PCR) CSF E. coli K1 (PCR) CSF H. influenzae (PCR) CSF HSV I (PCR) CSF HSV II (PCR) CSF HHV 6 (PCR) CSF L.monocytogenes PCR CSF N. meningitidis PCR CSF Parechovirus (PCR) CSF S. agalactiae (PCR) CSF S. pneumoniae (PCR) CSF VZV (PCR) Respiratory Panel Rivera Adenovirus (Rapid PCR) B.pert (TEM-PCR) B.parapertussis DNA PCR C. pneumoniae DNA (PCR) Coronavirus OC43 (PCR) Coronavirus HKU1 (PCR) Coronavirus 229E (PCR) Coronavirus NL63 (PCR) Human Metapneumovir PCR Influenza A (RT-PCR) Influenza B (RT-PCR) M. pneumoniae (PCR) Parainfluenza 1 (PCR) Parainfluenza 2 (PCR) Parainfluenza 3 (PCR) Parainfluenza 4 (PCR) RSV (PCR) Entero/Rhino (PCR) SARS-CoV-2 RNA (RT-PCR) 01/18/24 11:05 MCV MCH MCHC RDW Plt Count MPV Immature Gran % (Auto) Neut % (Auto) Lymph % (Auto) Hill % (Auto) Eos % (Auto) Baso % (Auto) Lymph # (Auto) Hill # (Auto) Eos # (Auto) Baso # (Auto) Abs Immat Gran (auto) Absolute Neuts (auto) Absolute Nucleated RBC Nucleated RBC % (auto) Smear Tech's Comments VBG pH VBG pCO2 VBG pO2 VBG HCO3 VBG O2 Saturation VBG Base Excess Anion Gap Estim Creat Clear Calc Estimated GFR POC Glucose 181 H Random Glucose Lactic Acid Calcium Phosphorus Magnesium Iron TIBC % Saturation Unsat Iron Binding Total Bilirubin AST ALT Alkaline Phosphatase Total Creatine Kinase Troponin I High Sens Total Protein Albumin TSH Free T4 Urine Color Urine Appearance Urine pH Ur Specific [place] Urine Protein Urine Glucose (UA) Urine Ketones Urine Blood Urine Nitrite Ur Leukocyte Esterase Urine RBC Urine WBC Ur Squamous Epith Cells Urine Bacteria Hyaline Casts CSF Tube Number CSF Volume CSF Appearance CSF Color CSF WBC CSF RBC CSF Neutrophils CSF Lymphocytes CSF Monocytes % CSF Other Cells % CSF Appearance (b) CSF Glucose CSF Total Protein CSF C.neoform/gat PCR CSF CMV DNA (PCR) CSF Enterovirus (PCR) CSF E. coli K1 (PCR) CSF H. influenzae (PCR) CSF HSV I (PCR) CSF HSV II (PCR) CSF HHV 6 (PCR) CSF L.monocytogenes PCR CSF N. meningitidis PCR CSF Parechovirus (PCR) CSF S. agalactiae (PCR) CSF S. pneumoniae (PCR) CSF VZV (PCR) Respiratory Panel Rivera Adenovirus (Rapid PCR) B.pert (TEM-PCR) B.parapertussis DNA PCR C. pneumoniae DNA (PCR) Coronavirus OC43 (PCR) Coronavirus HKU1 (PCR) Coronavirus 229E (PCR) Coronavirus NL63 (PCR) Human Metapneumovir PCR Influenza A (RT-PCR) Influenza B (RT-PCR) M. pneumoniae (PCR) Parainfluenza 1 (PCR) Parainfluenza 2 (PCR) Parainfluenza 3 (PCR) Parainfluenza 4 (PCR) RSV (PCR) Entero/Rhino (PCR) SARS-CoV-2 RNA (RT-PCR) Microbiology Microbiology Results: Microbiology 01/17/24 14:26 Urine Culture - Preliminary Urine Catheterized - Finn Catheter Culture in progress. 01/17/24 16:06 Gram Stain - Final Cerebrospinal Fluid CSF Examination - Final Fluid Description - Final CSF Culture - Preliminary No growth to date. Assessment and Plan (1) Elevated troponin: Status: Acute Plan d4 59yo M with DM2, HTN, HOCM, HLD, COPD, JUDY, constipation, schizoaffective disorder recent admission here for SBO managed nonoperatively transferred to Psychiatry for clozapine titration [employer] called 01/15/24 for AMS, tachycardia, tachypnea; AMS resolved found to have mildly elevated troponins, JUHI, elevated CRP became febrile to 1044, altered, agitated, tremulous on 01/17/24. Concern for central anticholnergic toxicity from lurasidone + clozapine, vs [employer] infection. Transferred to ICU. Improved and stepped down to IMC 01/18/24 fever, acute toxic-metabolic encephalopathy - on standing IV APAP - lurasidone + clozapine discontinued; on low-dose quetiapine at this time. Prn lorazepam + midazolam. Psychiatry consult - LP 01/17/24, 6->3 WBCs, PCR negative. vancomycin + cefepime 01/16- pending cultures acute hypoxic resp failure due to multifocal PNA - vancomycin + cefepime as above, follow BCx; wean O2 as tolerated JUHI - likely prerenal, responded to IV fluid hydration elevated troponins - Cardiology consulted, likely demand ischemia from dehydration. Appears to have peaked. HOCM HTN - D/c'ed losartan + furosemide as these may worsen obstructive physiology. Resume metoprolol - TTE 10/10/23: - Normal left ventricular cavity size. There is severely increased left ventricular wall thickness. The left ventricular systolic function is hyperdynamic. The visually estimated ejection fraction is >70%. - Dynamic LVOT obstruction noted. No obvious CON seen as before. Resting LVOT peak gradient 40 mm Hg, post valsalva 123 mm Hg. This is significantly worse than previous study. - Normal right ventricular cavity size and systolic function. - The left atrium is severely dilated. - Mildly elevated right atrial pressure. - There is mild dilatation of the sinuses of Valsalva measuring 4.00 cm and mild dilatation of the ascending aorta measuring 3.90 cm. CAD - continue ASA, atorvastatin, metoprolol DM2 - lydia-dose lispro schizoaffective disorder - neuroleptics on hold except for quetiapine VTE ppx - LMWH dispo - TBD In my clinical judgment, the patient requires continued inpatient hospitalization for the following reasons: fever, encephalopathy Total time managing care of this patient today: 50 minutes. Quality Stroke Does the patient have a stroke diagnosis?: No VTE Prior VTE?: No VTE Risk Level:: Medical - moderate - high VTE Device Contraindication: Treatment Not Indicated VTE Drug Contraindication: N/A - Med Ordered
[2024-01-18 13:04] LABS: Vancomycin Random 8.2 mcg/mL (15-20)
[2024-01-18] MEDS: vancomycin HCL 750 MG in 0.9 % Sodium Chloride 250 ML 265 MG IV ×3 (13:41→22:44)
[2024-01-18] MEDS: Metoprolol Tartrate 5 MG/5 ML VIAL IVPUSH ×2 (14:03→20:03)
--- NOTE | 2024-01-18 14:05 | PC.NURSE ---
31 beat v tach noted on monitoring analyst. Patient asymptomatic, BP 133/71, HR 90. MD notified. MD at bedside to evaluate patient. New order for 5mg IV metoprolol q6 hrs.
[2024-01-18] MEDS: 0.9 % Sodium Chloride Flush 3 ML SYRINGE IVFLUSH (15:50)
[2024-01-18 16:38] LABS: Glucose, Whole Blood 164 mg/dL (60-115)
--- NOTE | 2024-01-18 17:14 | P.CNPS_ITS ---
History of Present Illness Date of Service: 01/18/24 Chief Complaint: Sudden onset weakness / AMS Requesting physician: Juan Boo Sources of Information: patient interviewed, chart reviewed and crisis/core team assessment reviewed HPI Narrative: went to see patient with dr. Pacheco doing much better, talking, eating, friendly, recognized other visiting staff, this blurb writer, Tara by name. Says he does not remember why he went to ICU but says he's feeling much better and says my body feels good... Not feeling depressed. Past Psychiatric History: patient has had multiple psychiatric hospitalizations particularly over the past several years. He has not been able to restate belies on clozapine and his clozapine dose has been capped relatively moderate because of his cardiac conduction issues and question of CHF in the past. He had responded reportedly well to Latuda in the past he was less agitated on Depakote. on moseley order. [facility] Medical History (Updated 01/19/24 @ 11:53 by Geraldo Garcia MD) Schizoaffective disorder Diabetes mellitus HOCM (hypertrophic obstructive cardiomyopathy) Congestive heart failure COVID-19 Thought disorder Nocturnal hypoxemia Constipation COPD (chronic obstructive pulmonary disease) JUDY (obstructive sleep apnea) Smoker BPH (benign prostatic hyperplasia) Diabetes mellitus Obesity (BMI 30-39.9) Pure hypercholesterolemia Prolonged QT interval Essential hypertension Aggression Hypertension Coronary artery disease CHF (congestive heart failure) Cardiac arrhythmia Myocardial infarction Surgical History History of ankle surgery History of intestinal surgery History of transurethral resection of prostate Family History: patient was adopted Social History: patient not working not is on disability was living in a supportive apartment but has not been able to maintain this setting in an extended period of time. currently in a [employer]. HS grad. SSDI income. Trauma History: has reported having been held at [employer] when he was 23 yo. Diagnostics Vital Signs (24Hr): Vital Signs - 24 hr 01/17/24 18:00 01/17/24 19:00 01/17/24 20:00 Temperature 101.3 F H 100.2 F 98.6 F Pulse Rate 121 H 107 H 100 Respiratory Rate 31 H 27 H 25 H Blood Pressure 109/77 117/69 118/81 Pulse Oximetry 90 L 94 94 Oxygen Delivery Method Nasal Cannula Nasal Cannula Nasal Cannula Oxygen Flow Rate 1 1 1 01/17/24 21:00 01/17/24 22:00 01/17/24 23:00 Temperature 97.7 F 96.3 F L 95.7 F L Pulse Rate 96 88 89 Respiratory Rate 22 H 21 H 22 H Blood Pressure 126/72 106/54 L 133/68 Pulse Oximetry 96 94 92 Oxygen Delivery Method Nasal Cannula Nasal Cannula Room Air Oxygen Flow Rate 1 1 01/17/24 23:30 01/18/24 00:00 01/18/24 01:00 Temperature 95.9 F L 95.7 F L Pulse Rate 79 83 Respiratory Rate 22 H 22 H Blood Pressure 110/55 L 100/63 Pulse Oximetry 84 L 96 96 Oxygen Delivery Method Room Air Nasal Cannula Nasal Cannula Oxygen Flow Rate 1 1 01/18/24 02:00 01/18/24 03:00 01/18/24 04:00 Temperature 96.3 F L 96.8 F 97.9 F Pulse Rate 83 84 85 Respiratory Rate 22 H 23 H 23 H Blood Pressure 105/62 114/68 112/68 Pulse Oximetry 96 98 97 Oxygen Delivery Method Nasal Cannula Nasal Cannula Nasal Cannula Oxygen Flow Rate 1 1 1 01/18/24 05:00 01/18/24 06:00 01/18/24 07:00 Temperature 98.4 F 99.5 F 99.7 F Pulse Rate 89 92 93 Respiratory Rate 24 H 24 H 24 H Blood Pressure 120/73 111/63 109/63 Pulse Oximetry 97 95 97 Oxygen Delivery Method Nasal Cannula Nasal Cannula Nasal Cannula Oxygen Flow Rate 1 1 1 01/18/24 07:00 01/18/24 08:00 01/18/24 12:00 Temperature 100 F 100 F 97.1 F Pulse Rate 98 102 H 87 Respiratory Rate 22 H 24 H 18 Blood Pressure 109/63 121/66 133/77 Pulse Oximetry 95 96 96 Oxygen Delivery Method Nasal Cannula Nasal Cannula Nasal Cannula Oxygen Flow Rate 1 1 2 01/18/24 15:43 Temperature 98.2 F Pulse Rate 83 Respiratory Rate 18 Blood Pressure 123/73 Pulse Oximetry 97 Oxygen Delivery Method Nasal Cannula Oxygen Flow Rate 2 BMI result Body Mass Index 34.3 Labs 01/19/24 05:35 01/19/24 05:35 Labs: Laboratory Results - last 48 hr 01/16/24 01/16/24 01/17/24 19:51 20:47 04:43 WBC RBC Hgb Hct MCV MCH MCHC RDW Plt Count MPV Immature Gran % (Auto) Neut % (Auto) Lymph % (Auto) [place] % (Auto) Eos % (Auto) Baso % (Auto) Lymph # (Auto) [place] # (Auto) Eos # (Auto) Baso # (Auto) Abs Immat Gran (auto) Absolute Neuts (auto) Absolute Nucleated RBC Nucleated RBC % (auto) Smear Tech's Comments VBG pH VBG pCO2 VBG pO2 VBG HCO3 VBG O2 Saturation VBG Base Excess Sodium Potassium Chloride Carbon Dioxide Anion Gap BUN Creatinine Estim Creat Clear Calc Estimated GFR POC Glucose 138 H 154 H Random Glucose Lactic Acid Calcium Phosphorus Magnesium Iron TIBC % Saturation Unsat Iron Binding Total Bilirubin Direct Bilirubin AST ALT Alkaline Phosphatase Lactate Dehydrogenase Total Creatine Kinase Troponin I High Sens C-Reactive Protein B-Natriuretic Peptide Total Protein Albumin Procalcitonin TSH Free T4 Urine Color Urine Appearance Urine pH Ur Specific [place] Urine Protein Urine Glucose (UA) Urine Ketones Urine Blood Urine Nitrite Ur Leukocyte Esterase Urine RBC Urine WBC Ur Squamous Epith Cells Urine Bacteria Hyaline Casts Ur Random Sodium 36.0 Urine Creatinine 39.01 CSF Tube Number CSF Volume CSF Appearance CSF Color CSF WBC CSF RBC CSF Neutrophils CSF Lymphocytes CSF Monocytes % CSF Other Cells % CSF Appearance (b) CSF Glucose CSF Total Protein CSF C.neoform/gat PCR CSF CMV DNA (PCR) CSF Enterovirus (PCR) CSF E. coli K1 (PCR) CSF H. influenzae (PCR) CSF HSV I (PCR) CSF HSV II (PCR) CSF HHV 6 (PCR) CSF L.monocytogenes PCR CSF N. meningitidis PCR CSF Parechovirus (PCR) CSF S. agalactiae (PCR) CSF S. pneumoniae (PCR) CSF VZV (PCR) Random Vancomycin Respiratory Panel [place] Adenovirus (Rapid PCR) B.pert (TEM-PCR) B.parapertussis DNA PCR C. pneumoniae DNA (PCR) Coronavirus OC43 (PCR) Coronavirus HKU1 (PCR) Coronavirus 229E (PCR) Coronavirus NL63 (PCR) Human Metapneumovir PCR Influenza A (RT-PCR) Influenza B (RT-PCR) M. pneumoniae (PCR) Parainfluenza 1 (PCR) Parainfluenza 2 (PCR) Parainfluenza 3 (PCR) Parainfluenza 4 (PCR) RSV (PCR) Entero/Rhino (PCR) SARS-CoV-2 RNA (RT-PCR) 01/17/24 01/17/24 01/17/24 05:49 06:59 09:39 WBC 8.5 RBC 3.96 L Hgb 10.8 L Hct 33.8 L MCV 85.4 MCH 27.3 MCHC 32.0 RDW 15.3 Plt Count 82 L MPV 13.2 H Immature Gran % (Auto) Neut % (Auto) Lymph % (Auto) [place] % (Auto) Eos % (Auto) Baso % (Auto) Lymph # (Auto) [place] # (Auto) Eos # (Auto) Baso # (Auto) Abs Immat Gran (auto) Absolute Neuts (auto) Absolute Nucleated RBC 0.000 Nucleated RBC % (auto) 0.0 Smear Tech's Comments VBG pH 7.42 7.41 VBG pCO2 33 33 VBG pO2 64 70 VBG HCO3 22 21 L VBG O2 Saturation 92.0 93.0 VBG Base Excess -1.4 -2.3 Sodium 145 Potassium 3.6 Chloride 115 H Carbon Dioxide 22 Anion Gap 12 BUN 20 H Creatinine 1.60 H Estim Creat Clear Calc 56.8 Estimated GFR 44 POC Glucose 170 H Random Glucose 214 H Lactic Acid Calcium 9.0 Phosphorus Magnesium Iron TIBC % Saturation Unsat Iron Binding Total Bilirubin 0.5 Direct Bilirubin 0.2 AST 18 ALT 22 Alkaline Phosphatase 55 Lactate Dehydrogenase 264 Total Creatine Kinase 68 Troponin I High Sens C-Reactive Protein 18.21 H B-Natriuretic Peptide 952 H Total Protein 6.7 Albumin 3.5 Procalcitonin 0.56 TSH Free T4 Urine Color Urine Appearance Urine pH Ur Specific [place] Urine Protein Urine Glucose (UA) Urine Ketones Urine Blood Urine Nitrite Ur Leukocyte Esterase Urine RBC Urine WBC Ur Squamous Epith Cells Urine Bacteria Hyaline Casts Ur Random Sodium Urine Creatinine CSF Tube Number CSF Volume CSF Appearance CSF Color CSF WBC CSF RBC CSF Neutrophils CSF Lymphocytes CSF Monocytes % CSF Other Cells % CSF Appearance (b) CSF Glucose CSF Total Protein CSF C.neoform/gat PCR CSF CMV DNA (PCR) CSF Enterovirus (PCR) CSF E. coli K1 (PCR) CSF H. influenzae (PCR) CSF HSV I (PCR) CSF HSV II (PCR) CSF HHV 6 (PCR) CSF L.monocytogenes PCR CSF N. meningitidis PCR CSF Parechovirus (PCR) CSF S. agalactiae (PCR) CSF S. pneumoniae (PCR) CSF VZV (PCR) Random Vancomycin Respiratory Panel [place] Adenovirus (Rapid PCR) B.pert (TEM-PCR) B.parapertussis DNA PCR C. pneumoniae DNA (PCR) Coronavirus OC43 (PCR) Coronavirus HKU1 (PCR) Coronavirus 229E (PCR) Coronavirus NL63 (PCR) Human Metapneumovir PCR Influenza A (RT-PCR) Influenza B (RT-PCR) M. pneumoniae (PCR) Parainfluenza 1 (PCR) Parainfluenza 2 (PCR) Parainfluenza 3 (PCR) Parainfluenza 4 (PCR) RSV (PCR) Entero/Rhino (PCR) SARS-CoV-2 RNA (RT-PCR) 01/17/24 01/17/24 01/17/24 09:59 11:01 11:27 WBC RBC Hgb Hct MCV MCH MCHC RDW Plt Count MPV Immature Gran % (Auto) Neut % (Auto) Lymph % (Auto) [place] % (Auto) Eos % (Auto) Baso % (Auto) Lymph # (Auto) [place] # (Auto) Eos # (Auto) Baso # (Auto) Abs Immat Gran (auto) Absolute Neuts (auto) Absolute Nucleated RBC Nucleated RBC % (auto) Smear Tech's Comments VBG pH VBG pCO2 VBG pO2 VBG HCO3 VBG O2 Saturation VBG Base Excess Sodium Potassium Chloride Carbon Dioxide Anion Gap BUN Creatinine Estim Creat Clear Calc Estimated GFR POC Glucose 178 H Random Glucose Lactic Acid 1.7 Calcium Phosphorus Magnesium Iron TIBC % Saturation Unsat Iron Binding Total Bilirubin Direct Bilirubin AST ALT Alkaline Phosphatase Lactate Dehydrogenase Total Creatine Kinase Troponin I High Sens C-Reactive Protein B-Natriuretic Peptide Total Protein Albumin Procalcitonin TSH Free T4 Urine Color Urine Appearance Urine pH Ur Specific [place] Urine Protein Urine Glucose (UA) Urine Ketones Urine Blood Urine Nitrite Ur Leukocyte Esterase Urine RBC Urine WBC Ur Squamous Epith Cells Urine Bacteria Hyaline Casts Ur Random Sodium Urine Creatinine CSF Tube Number CSF Volume CSF Appearance CSF Color CSF WBC CSF RBC CSF Neutrophils CSF Lymphocytes CSF Monocytes % CSF Other Cells % CSF Appearance (b) CSF Glucose CSF Total Protein CSF C.neoform/gat PCR CSF CMV DNA (PCR) CSF Enterovirus (PCR) CSF E. coli K1 (PCR) CSF H. influenzae (PCR) CSF HSV I (PCR) CSF HSV II (PCR) CSF HHV 6 (PCR) CSF L.monocytogenes PCR CSF N. meningitidis PCR CSF Parechovirus (PCR) CSF S. agalactiae (PCR) CSF S. pneumoniae (PCR) CSF VZV (PCR) Random Vancomycin Respiratory Panel Rivera See Note Adenovirus (Rapid PCR) Not Detected B.pert (TEM-PCR) Not Detected B.parapertussis DNA PCR Not Detected C. pneumoniae DNA (PCR) Not Detected Coronavirus OC43 (PCR) Not Detected Coronavirus HKU1 (PCR) Not Detected Coronavirus 229E (PCR) Not Detected Coronavirus NL63 (PCR) Not Detected Human Metapneumovir PCR Not Detected Influenza A (RT-PCR) Not Detected Influenza B (RT-PCR) Not Detected M. pneumoniae (PCR) Not Detected Parainfluenza 1 (PCR) Not Detected Parainfluenza 2 (PCR) Not Detected Parainfluenza 3 (PCR) Not Detected Parainfluenza 4 (PCR) Not Detected RSV (PCR) Not Detected Entero/Rhino (PCR) Not Detected SARS-CoV-2 RNA (RT-PCR) Not Detected 01/17/24 01/17/24 01/17/24 13:53 13:54 14:04 WBC 6.4 RBC 3.98 L Hgb 10.8 L Hct 34.5 L MCV 86.7 MCH 27.1 MCHC 31.3 RDW 15.3 Plt Count 84 L MPV 13.0 H Immature Gran % (Auto) 0.6 H Neut % (Auto) 86.7 H Lymph % (Auto) 5.9 L [place] % (Auto) 6.5 Eos % (Auto) 0.0 Baso % (Auto) 0.3 Lymph # (Auto) 0.4 L [place] # (Auto) 0.4 Eos # (Auto) 0.0 Baso # (Auto) 0.0 Abs Immat Gran (auto) 0.04 H Absolute Neuts (auto) 5.6 Absolute Nucleated RBC 0.000 Nucleated RBC % (auto) 0.0 Smear Tech's Comments VBG pH 7.37 VBG pCO2 45 VBG pO2 40 VBG HCO3 26 VBG O2 Saturation 65.0 VBG Base Excess 0.9 Sodium 146 H Potassium 3.9 Chloride 114 H Carbon Dioxide 25 Anion Gap 11 L BUN 19 H Creatinine 1.60 H Estim Creat Clear Calc 56.8 Estimated GFR 44 POC Glucose Random Glucose 153 H Lactic Acid 0.9 Calcium 9.1 Phosphorus 2.9 Magnesium 1.8 Iron 10 L TIBC 162 L % Saturation 6 L Unsat Iron Binding 152 Total Bilirubin 0.6 Direct Bilirubin AST 22 ALT 23 Alkaline Phosphatase 63 Lactate Dehydrogenase Total Creatine Kinase 85 Troponin I High Sens 67.0 H C-Reactive Protein B-Natriuretic Peptide Total Protein 6.7 Albumin 3.5 Procalcitonin TSH 0.21 L Free T4 0.91 Urine Color Urine Appearance Urine pH Ur Specific [place] Urine Protein Urine Glucose (UA) Urine Ketones Urine Blood Urine Nitrite Ur Leukocyte Esterase Urine RBC Urine WBC Ur Squamous Epith Cells Urine Bacteria Hyaline Casts Ur Random Sodium Urine Creatinine CSF Tube Number CSF Volume CSF Appearance CSF Color CSF WBC CSF RBC CSF Neutrophils CSF Lymphocytes CSF Monocytes % CSF Other Cells % CSF Appearance (b) CSF Glucose CSF Total Protein CSF C.neoform/gat PCR CSF CMV DNA (PCR) CSF Enterovirus (PCR) CSF E. coli K1 (PCR) CSF H. influenzae (PCR) CSF HSV I (PCR) CSF HSV II (PCR) CSF HHV 6 (PCR) CSF L.monocytogenes PCR CSF N. meningitidis PCR CSF Parechovirus (PCR) CSF S. agalactiae (PCR) CSF S. pneumoniae (PCR) CSF VZV (PCR) Random Vancomycin Respiratory Panel [place] Adenovirus (Rapid PCR) B.pert (TEM-PCR) B.parapertussis DNA PCR C. pneumoniae DNA (PCR) Coronavirus OC43 (PCR) Coronavirus HKU1 (PCR) Coronavirus 229E (PCR) Coronavirus NL63 (PCR) Human Metapneumovir PCR Influenza A (RT-PCR) Influenza B (RT-PCR) M. pneumoniae (PCR) Parainfluenza 1 (PCR) Parainfluenza 2 (PCR) Parainfluenza 3 (PCR) Parainfluenza 4 (PCR) RSV (PCR) Entero/Rhino (PCR) SARS-CoV-2 RNA (RT-PCR) 01/17/24 01/17/24 01/17/24 14:26 16:06 16:06 WBC RBC Hgb Hct MCV MCH MCHC RDW Plt Count MPV Immature Gran % (Auto) Neut % (Auto) Lymph % (Auto) [place] % (Auto) Eos % (Auto) Baso % (Auto) Lymph # (Auto) [place] # (Auto) Eos # (Auto) Baso # (Auto) Abs Immat Gran (auto) Absolute Neuts (auto) Absolute Nucleated RBC Nucleated RBC % (auto) Smear Tech's Comments VBG pH VBG pCO2 VBG pO2 VBG HCO3 VBG O2 Saturation VBG Base Excess Sodium Potassium Chloride Carbon Dioxide Anion Gap BUN Creatinine Estim Creat Clear Calc Estimated GFR POC Glucose Random Glucose Lactic Acid Calcium Phosphorus Magnesium Iron TIBC % Saturation Unsat Iron Binding Total Bilirubin Direct Bilirubin AST ALT Alkaline Phosphatase Lactate Dehydrogenase Total Creatine Kinase Troponin I High Sens C-Reactive Protein B-Natriuretic Peptide Total Protein Albumin Procalcitonin TSH Free T4 Urine Color Yellow Urine Appearance Turbid Urine pH 5.5 Ur Specific [place] 1.010 Urine Protein 100 (2+) H Urine Glucose (UA) Negative Urine Ketones Negative Urine Blood Moderate (2+) H Urine Nitrite Positive H Ur Leukocyte Esterase Large (3+) H Urine RBC 0-2 Urine WBC >50 H Ur Squamous Epith Cells 0-2 Urine Bacteria 4+ Hyaline Casts 3-5 Ur Random Sodium Urine Creatinine CSF Tube Number 2 1 CSF Volume CSF Appearance CSF Color CSF WBC CSF RBC CSF Neutrophils CSF Lymphocytes CSF Monocytes % CSF Other Cells % CSF Appearance (b) CSF Glucose CSF Total Protein CSF C.neoform/gat PCR CSF CMV DNA (PCR) CSF Enterovirus (PCR) CSF E. coli K1 (PCR) CSF H. influenzae (PCR) CSF HSV I (PCR) CSF HSV II (PCR) CSF HHV 6 (PCR) CSF L.monocytogenes PCR CSF N. meningitidis PCR CSF Parechovirus (PCR) CSF S. agalactiae (PCR) CSF S. pneumoniae (PCR) CSF VZV (PCR) Random Vancomycin Respiratory Panel [place] Adenovirus (Rapid PCR) B.pert (TEM-PCR) B.parapertussis DNA PCR C. pneumoniae DNA (PCR) Coronavirus OC43 (PCR) Coronavirus HKU1 (PCR) Coronavirus 229E (PCR) Coronavirus NL63 (PCR) Human Metapneumovir PCR Influenza A (RT-PCR) Influenza B (RT-PCR) M. pneumoniae (PCR) Parainfluenza 1 (PCR) Parainfluenza 2 (PCR) Parainfluenza 3 (PCR) Parainfluenza 4 (PCR) RSV (PCR) Entero/Rhino (PCR) SARS-CoV-2 RNA (RT-PCR) 01/17/24 01/17/24 01/17/24 16:06 16:06 16:06 WBC RBC Hgb Hct MCV MCH MCHC RDW Plt Count MPV Immature Gran % (Auto) Neut % (Auto) Lymph % (Auto) [place] % (Auto) Eos % (Auto) Baso % (Auto) Lymph # (Auto) [place] # (Auto) Eos # (Auto) Baso # (Auto) Abs Immat Gran (auto) Absolute Neuts (auto) Absolute Nucleated RBC Nucleated RBC % (auto) Smear Tech's Comments VBG pH VBG pCO2 VBG pO2 VBG HCO3 VBG O2 Saturation VBG Base Excess Sodium Potassium Chloride Carbon Dioxide Anion Gap BUN Creatinine Estim Creat Clear Calc Estimated GFR POC Glucose Random Glucose Lactic Acid Calcium Phosphorus Magnesium Iron TIBC % Saturation Unsat Iron Binding Total Bilirubin Direct Bilirubin AST ALT Alkaline Phosphatase Lactate Dehydrogenase Total Creatine Kinase Troponin I High Sens C-Reactive Protein B-Natriuretic Peptide Total Protein Albumin Procalcitonin TSH Free T4 Urine Color Urine Appearance Urine pH Ur Specific [place] Urine Protein Urine Glucose (UA) Urine Ketones Urine Blood Urine Nitrite Ur Leukocyte Esterase Urine RBC Urine WBC Ur Squamous Epith Cells Urine Bacteria Hyaline Casts Ur Random Sodium Urine Creatinine CSF Tube Number 4 CSF Volume 1.5 2.5 CSF Appearance CLEAR CLEAR CSF Color COLORLESS CSF WBC CSF RBC CSF Neutrophils CSF Lymphocytes CSF Monocytes % CSF Other Cells % CSF Appearance (b) CSF Glucose CSF Total Protein CSF C.neoform/gat PCR CSF CMV DNA (PCR) CSF Enterovirus (PCR) CSF E. coli K1 (PCR) CSF H. influenzae (PCR) CSF HSV I (PCR) CSF HSV II (PCR) CSF HHV 6 (PCR) CSF L.monocytogenes PCR CSF N. meningitidis PCR CSF Parechovirus (PCR) CSF S. agalactiae (PCR) CSF S. pneumoniae (PCR) CSF VZV (PCR) Random Vancomycin Respiratory Panel [place] Adenovirus (Rapid PCR) B.pert (TEM-PCR) B.parapertussis DNA PCR C. pneumoniae DNA (PCR) Coronavirus OC43 (PCR) Coronavirus HKU1 (PCR) Coronavirus 229E (PCR) Coronavirus NL63 (PCR) Human Metapneumovir PCR Influenza A (RT-PCR) Influenza B (RT-PCR) M. pneumoniae (PCR) Parainfluenza 1 (PCR) Parainfluenza 2 (PCR) Parainfluenza 3 (PCR) Parainfluenza 4 (PCR) RSV (PCR) Entero/Rhino (PCR) SARS-CoV-2 RNA (RT-PCR) 01/17/24 01/17/24 01/17/24 16:06 16:06 16:06 WBC RBC Hgb Hct MCV MCH MCHC RDW Plt Count MPV Immature Gran % (Auto) Neut % (Auto) Lymph % (Auto) [place] % (Auto) Eos % (Auto) Baso % (Auto) Lymph # (Auto) [place] # (Auto) Eos # (Auto) Baso # (Auto) Abs Immat Gran (auto) Absolute Neuts (auto) Absolute Nucleated RBC Nucleated RBC % (auto) Smear Tech's Comments VBG pH VBG pCO2 VBG pO2 VBG HCO3 VBG O2 Saturation VBG Base Excess Sodium Potassium Chloride Carbon Dioxide Anion Gap BUN Creatinine Estim Creat Clear Calc Estimated GFR POC Glucose Random Glucose Lactic Acid Calcium Phosphorus Magnesium Iron TIBC % Saturation Unsat Iron Binding Total Bilirubin Direct Bilirubin AST ALT Alkaline Phosphatase Lactate Dehydrogenase Total Creatine Kinase Troponin I High Sens C-Reactive Protein B-Natriuretic Peptide Total Protein Albumin Procalcitonin TSH Free T4 Urine Color Urine Appearance Urine pH Ur Specific [place] Urine Protein Urine Glucose (UA) Urine Ketones Urine Blood Urine Nitrite Ur Leukocyte Esterase Urine RBC Urine WBC Ur Squamous Epith Cells Urine Bacteria Hyaline Casts Ur Random Sodium Urine Creatinine CSF Tube Number CSF Volume CSF Appearance CSF Color COLORLESS CSF WBC 6 3 CSF RBC 0 0 CSF Neutrophils 0 CSF Lymphocytes CSF Monocytes % CSF Other Cells % CSF Appearance (b) CSF Glucose CSF Total Protein CSF C.neoform/gat PCR CSF CMV DNA (PCR) CSF Enterovirus (PCR) CSF E. coli K1 (PCR) CSF H. influenzae (PCR) CSF HSV I (PCR) CSF HSV II (PCR) CSF HHV 6 (PCR) CSF L.monocytogenes PCR CSF N. meningitidis PCR CSF Parechovirus (PCR) CSF S. agalactiae (PCR) CSF S. pneumoniae (PCR) CSF VZV (PCR) Random Vancomycin Respiratory Panel [place] Adenovirus (Rapid PCR) B.pert (TEM-PCR) B.parapertussis DNA PCR C. pneumoniae DNA (PCR) Coronavirus OC43 (PCR) Coronavirus HKU1 (PCR) Coronavirus 229E (PCR) Coronavirus NL63 (PCR) Human Metapneumovir PCR Influenza A (RT-PCR) Influenza B (RT-PCR) M. pneumoniae (PCR) Parainfluenza 1 (PCR) Parainfluenza 2 (PCR) Parainfluenza 3 (PCR) Parainfluenza 4 (PCR) RSV (PCR) Entero/Rhino (PCR) SARS-CoV-2 RNA (RT-PCR) 01/17/24 01/17/24 01/17/24 16:06 16:06 16:06 WBC RBC Hgb Hct MCV MCH MCHC RDW Plt Count MPV Immature Gran % (Auto) Neut % (Auto) Lymph % (Auto) [place] % (Auto) Eos % (Auto) Baso % (Auto) Lymph # (Auto) [place] # (Auto) Eos # (Auto) Baso # (Auto) Abs Immat Gran (auto) Absolute Neuts (auto) Absolute Nucleated RBC Nucleated RBC % (auto) Smear Tech's Comments VBG pH VBG pCO2 VBG pO2 VBG HCO3 VBG O2 Saturation VBG Base Excess Sodium Potassium Chloride Carbon Dioxide Anion Gap BUN Creatinine Estim Creat Clear Calc Estimated GFR POC Glucose Random Glucose Lactic Acid Calcium Phosphorus Magnesium Iron TIBC % Saturation Unsat Iron Binding Total Bilirubin Direct Bilirubin AST ALT Alkaline Phosphatase Lactate Dehydrogenase Total Creatine Kinase Troponin I High Sens C-Reactive Protein B-Natriuretic Peptide Total Protein Albumin Procalcitonin TSH Free T4 Urine Color Urine Appearance Urine pH Ur Specific [place] Urine Protein Urine Glucose (UA) Urine Ketones Urine Blood Urine Nitrite Ur Leukocyte Esterase Urine RBC Urine WBC Ur Squamous Epith Cells Urine Bacteria Hyaline Casts Ur Random Sodium Urine Creatinine CSF Tube Number CSF Volume CSF Appearance CSF Color CSF WBC CSF RBC CSF Neutrophils 0 CSF Lymphocytes 71 52 CSF Monocytes % 19 32 CSF Other Cells % 10 CSF Appearance (b) CSF Glucose CSF Total Protein CSF C.neoform/gat PCR CSF CMV DNA (PCR) CSF Enterovirus (PCR) CSF E. coli K1 (PCR) CSF H. influenzae (PCR) CSF HSV I (PCR) CSF HSV II (PCR) CSF HHV 6 (PCR) CSF L.monocytogenes PCR CSF N. meningitidis PCR CSF Parechovirus (PCR) CSF S. agalactiae (PCR) CSF S. pneumoniae (PCR) CSF VZV (PCR) Random Vancomycin Respiratory Panel [place] Adenovirus (Rapid PCR) B.pert (TEM-PCR) B.parapertussis DNA PCR C. pneumoniae DNA (PCR) Coronavirus OC43 (PCR) Coronavirus HKU1 (PCR) Coronavirus 229E (PCR) Coronavirus NL63 (PCR) Human Metapneumovir PCR Influenza A (RT-PCR) Influenza B (RT-PCR) M. pneumoniae (PCR) Parainfluenza 1 (PCR) Parainfluenza 2 (PCR) Parainfluenza 3 (PCR) Parainfluenza 4 (PCR) RSV (PCR) Entero/Rhino (PCR) SARS-CoV-2 RNA (RT-PCR) 01/17/24 01/17/24 01/17/24 16:06 16:20 20:32 WBC RBC Hgb Hct MCV MCH MCHC RDW Plt Count MPV Immature Gran % (Auto) Neut % (Auto) Lymph % (Auto) [place] % (Auto) Eos % (Auto) Baso % (Auto) Lymph # (Auto) [place] # (Auto) Eos # (Auto) Baso # (Auto) Abs Immat Gran (auto) Absolute Neuts (auto) Absolute Nucleated RBC Nucleated RBC % (auto) Smear Tech's Comments VBG pH VBG pCO2 VBG pO2 VBG HCO3 VBG O2 Saturation VBG Base Excess Sodium Potassium Chloride Carbon Dioxide Anion Gap BUN Creatinine Estim Creat Clear Calc Estimated GFR POC Glucose 123 H 142 H Random Glucose Lactic Acid Calcium Phosphorus Magnesium Iron TIBC % Saturation Unsat Iron Binding Total Bilirubin Direct Bilirubin AST ALT Alkaline Phosphatase Lactate Dehydrogenase Total Creatine Kinase Troponin I High Sens C-Reactive Protein B-Natriuretic Peptide Total Protein Albumin Procalcitonin TSH Free T4 Urine Color Urine Appearance Urine pH Ur Specific [place] Urine Protein Urine Glucose (UA) Urine Ketones Urine Blood Urine Nitrite Ur Leukocyte Esterase Urine RBC Urine WBC Ur Squamous Epith Cells Urine Bacteria Hyaline Casts Ur Random Sodium Urine Creatinine CSF Tube Number CSF Volume CSF Appearance CSF Color CSF WBC CSF RBC CSF Neutrophils CSF Lymphocytes CSF Monocytes % CSF Other Cells % 16 CSF Appearance (b) Clear, Colorless CSF Glucose 91 CSF Total Protein 35.7 CSF C.neoform/gat PCR Not Detected CSF CMV DNA (PCR) Not Detected CSF Enterovirus (PCR) Not Detected CSF E. coli K1 (PCR) Not Detected CSF H. influenzae (PCR) Not Detected CSF HSV I (PCR) Not Detected CSF HSV II (PCR) Not Detected CSF HHV 6 (PCR) Not Detected CSF L.monocytogenes PCR Not Detected CSF N. meningitidis PCR Not Detected CSF Parechovirus (PCR) Not Detected CSF S. agalactiae (PCR) Not Detected CSF S. pneumoniae (PCR) Not Detected CSF VZV (PCR) Not Detected Random Vancomycin Respiratory Panel [place] Adenovirus (Rapid PCR) B.pert (TEM-PCR) B.parapertussis DNA PCR C. pneumoniae DNA (PCR) Coronavirus OC43 (PCR) Coronavirus HKU1 (PCR) Coronavirus 229E (PCR) Coronavirus NL63 (PCR) Human Metapneumovir PCR Influenza A (RT-PCR) Influenza B (RT-PCR) M. pneumoniae (PCR) Parainfluenza 1 (PCR) Parainfluenza 2 (PCR) Parainfluenza 3 (PCR) Parainfluenza 4 (PCR) RSV (PCR) Entero/Rhino (PCR) SARS-CoV-2 RNA (RT-PCR) 01/18/24 01/18/24 01/18/24 04:55 07:15 11:05 WBC 4.3 L RBC 4.04 L Hgb 10.9 L Hct 34.9 L MCV 86.4 MCH 27.0 MCHC 31.2 RDW 15.3 Plt Count 62 L D MPV 12.8 H Immature Gran % (Auto) 0.2 Neut % (Auto) 69.3 Lymph % (Auto) 11.9 L [place] % (Auto) 17.9 H Eos % (Auto) 0.2 Baso % (Auto) 0.5 Lymph # (Auto) 0.5 L [place] # (Auto) 0.8 Eos # (Auto) 0.0 Baso # (Auto) 0.0 Abs Immat Gran (auto) 0.01 Absolute Neuts (auto) 3.0 Absolute Nucleated RBC 0.000 Nucleated RBC % (auto) 0.0 Smear Tech's Comments VERIFIED VBG pH VBG pCO2 VBG pO2 VBG HCO3 VBG O2 Saturation VBG Base Excess Sodium 146 H Potassium 4.3 Chloride 117 H Carbon Dioxide 21 L Anion Gap 12 BUN 18 H Creatinine 0.98 Estim Creat Clear Calc 92.8 Estimated GFR > 60 POC Glucose 96 181 H Random Glucose 130 H Lactic Acid Calcium 9.2 Phosphorus 3.2 Magnesium 2.1 Iron TIBC % Saturation Unsat Iron Binding Total Bilirubin Direct Bilirubin AST ALT Alkaline Phosphatase Lactate Dehydrogenase Total Creatine Kinase Troponin I High Sens C-Reactive Protein B-Natriuretic Peptide Total Protein Albumin Procalcitonin TSH Free T4 Urine Color Urine Appearance Urine pH Ur Specific [place] Urine Protein Urine Glucose (UA) Urine Ketones Urine Blood Urine Nitrite Ur Leukocyte Esterase Urine RBC Urine WBC Ur Squamous Epith Cells Urine Bacteria Hyaline Casts Ur Random Sodium Urine Creatinine CSF Tube Number CSF Volume CSF Appearance CSF Color CSF WBC CSF RBC CSF Neutrophils CSF Lymphocytes CSF Monocytes % CSF Other Cells % CSF Appearance (b) CSF Glucose CSF Total Protein CSF C.neoform/gat PCR CSF CMV DNA (PCR) CSF Enterovirus (PCR) CSF E. coli K1 (PCR) CSF H. influenzae (PCR) CSF HSV I (PCR) CSF HSV II (PCR) CSF HHV 6 (PCR) CSF L.monocytogenes PCR CSF N. meningitidis PCR CSF Parechovirus (PCR) CSF S. agalactiae (PCR) CSF S. pneumoniae (PCR) CSF VZV (PCR) Random Vancomycin Respiratory Panel [place] Adenovirus (Rapid PCR) B.pert (TEM-PCR) B.parapertussis DNA PCR C. pneumoniae DNA (PCR) Coronavirus OC43 (PCR) Coronavirus HKU1 (PCR) Coronavirus 229E (PCR) Coronavirus NL63 (PCR) Human Metapneumovir PCR Influenza A (RT-PCR) Influenza B (RT-PCR) M. pneumoniae (PCR) Parainfluenza 1 (PCR) Parainfluenza 2 (PCR) Parainfluenza 3 (PCR) Parainfluenza 4 (PCR) RSV (PCR) Entero/Rhino (PCR) SARS-CoV-2 RNA (RT-PCR) 01/18/24 01/18/24 12:41 16:34 WBC RBC Hgb Hct MCV MCH MCHC RDW Plt Count MPV Immature Gran % (Auto) Neut % (Auto) Lymph % (Auto) [place] % (Auto) Eos % (Auto) Baso % (Auto) Lymph # (Auto) [place] # (Auto) Eos # (Auto) Baso # (Auto) Abs Immat Gran (auto) Absolute Neuts (auto) Absolute Nucleated RBC Nucleated RBC % (auto) Smear Tech's Comments VBG pH VBG pCO2 VBG pO2 VBG HCO3 VBG O2 Saturation VBG Base Excess Sodium Potassium Chloride Carbon Dioxide Anion Gap BUN Creatinine Estim Creat Clear Calc Estimated GFR POC Glucose 164 H Random Glucose Lactic Acid Calcium Phosphorus Magnesium Iron TIBC % Saturation Unsat Iron Binding Total Bilirubin Direct Bilirubin AST ALT Alkaline Phosphatase Lactate Dehydrogenase Total Creatine Kinase Troponin I High Sens C-Reactive Protein B-Natriuretic Peptide Total Protein Albumin Procalcitonin TSH Free T4 Urine Color Urine Appearance Urine pH Ur Specific [place] Urine Protein Urine Glucose (UA) Urine Ketones Urine Blood Urine Nitrite Ur Leukocyte Esterase Urine RBC Urine WBC Ur Squamous Epith Cells Urine Bacteria Hyaline Casts Ur Random Sodium Urine Creatinine CSF Tube Number CSF Volume CSF Appearance CSF Color CSF WBC CSF RBC CSF Neutrophils CSF Lymphocytes CSF Monocytes % CSF Other Cells % CSF Appearance (b) CSF Glucose CSF Total Protein CSF C.neoform/gat PCR CSF CMV DNA (PCR) CSF Enterovirus (PCR) CSF E. coli K1 (PCR) CSF H. influenzae (PCR) CSF HSV I (PCR) CSF HSV II (PCR) CSF HHV 6 (PCR) CSF L.monocytogenes PCR CSF N. meningitidis PCR CSF Parechovirus (PCR) CSF S. agalactiae (PCR) CSF S. pneumoniae (PCR) CSF VZV (PCR) Random Vancomycin 8.2 L Respiratory Panel [place] Adenovirus (Rapid PCR) B.pert (TEM-PCR) B.parapertussis DNA PCR C. pneumoniae DNA (PCR) Coronavirus OC43 (PCR) Coronavirus HKU1 (PCR) Coronavirus 229E (PCR) Coronavirus NL63 (PCR) Human Metapneumovir PCR Influenza A (RT-PCR) Influenza B (RT-PCR) M. pneumoniae (PCR) Parainfluenza 1 (PCR) Parainfluenza 2 (PCR) Parainfluenza 3 (PCR) Parainfluenza 4 (PCR) RSV (PCR) Entero/Rhino (PCR) SARS-CoV-2 RNA (RT-PCR) Imaging Radiology Impressions: ITS Impressions Pulmonary Perfusion Imaging 01/15/24 15:45 IMPRESSION: Very low probability of pulmonary embolism. Head CT 01/15/24 16:14 IMPRESSION: No acute intracranial pathology. Abdomen/Pelvis CT 01/16/24 11:52 IMPRESSION: 1. No evidence of bowel obstruction, resolution of small bowel obstruction seen on the previous study with resolution of portal venous gas 2. Mild splenomegaly. 3. Fat-containing ventral hernia. Fleischner guidelines were followed. Chest X-Ray 01/17/24 04:58 IMPRESSION: No acute cardiopulmonary process. No significant interval change. Abdomen/Pelvis CT 01/17/24 16:20 IMPRESSION: Study is limited. Motion precludes detail. There are extensive infiltrates throughout both lungs. No abscess. No pneumoperitoneum. Chest CT 01/17/24 16:20 IMPRESSION: Study is limited. Motion precludes detail. There are extensive infiltrates throughout both lungs. No abscess. No pneumoperitoneum. Head CT 01/17/24 16:20 IMPRESSION: 1. Evaluation is limited by motion. However, accounting for these limitations, there is no evidence of acute intracranial hemorrhage or edematous territorial infarction. 2. Paranasal sinus disease. 3. Possible bilateral exophthalmos, correlate with physical examination. Medications Medications Current Medications Al Hydroxide/Mg Hydroxide (Magnesium Hydrox/Alum Hydrox 30 Ml Oral.Susp) 10 ml PO TID PRN PRN Reason: Indigestion Albuterol Sulfate (Albuterol Sulfate 90 Mcg 8 Gm Inhaler) 2 puff INHALE Q6H PRN PRN Reason: Shortness Of Breath Or Wheezing Aspirin (Aspirin Enteric Coated 81 Mg Tablet.Dr) 81 mg PO DAILY@799 [facility] Last Admin: 01/17/24 08:16 Dose: 81 mg Atorvastatin Calcium (Atorvastatin Calcium 20 Mg Tablet) 20 mg PO DAILY@1999 [facility] Last Admin: 01/17/24 20:16 Dose: 20 mg Clozapine (Clozapine 25 Mg Tablet) 50 mg PO BID [facility] Docusate Sodium (Docusate Sodium 100 Mg Capsule) 100 mg PO BID@799,1999 [facility] Last Admin: 01/18/24 08:53 Dose: 100 mg Glucose (Glucose Gel 15 Gm Gel..Gram.) 15 gm PO Q15M PRN; Protocol PRN Reason: per Hypoglycemia Standing Ord. Dextrose (D10) 250 mls @ 750 mls/hr IV Q15M PRN; Protocol PRN Reason: per Hypoglycemia Standing Ord. Lactated Ringer's (Lr) 1,000 mls @ 125 mls/hr IVCONT .Q8H [facility] Last Admin: 01/18/24 12:06 Dose: 125 mls/hr Acetaminophen (Ofirmev) 1,000 mg in 100 mls @ 400 mls/hr IV Q6H [facility] Last Infusion: 01/18/24 12:41 Dose: Infused Cefepime HCl 2 gm/ Sodium (Chloride) 50 mls @ 100 mls/hr IV Q12H [facility] Last Infusion: 01/18/24 14:20 Dose: Infused Vancomycin HCl 750 mg/ Sodium (Chloride) 265 mls @ 265 mls/hr IV Q8H [facility] Last Infusion: 01/18/24 16:53 Dose: Infused Insulin Human Lispro (Insulin Lispro 100 Unit/Ml 3 Ml Vial) 0 unit SUBCUT QIDACHS [facility]; Protocol Last Admin: 01/18/24 16:49 Dose: 2 unit Lorazepam (Lorazepam 2 Mg/Ml Vial) 1 mg IVPUSH Q8H PRN PRN Reason: Agitation Lurasidone HCl (Lurasidone Hcl 40 Mg Tablet) 40 mg PO DAILY@1800 [facility] Magnesium Hydroxide (Milk Of Magnesia 30 Ml Oral.Susp) 30 ml PO DAILY PRN PRN Reason: Constipation Metoprolol Tartrate (Metoprolol Tartrate 25 Mg Tablet) 25 mg PO QID [facility]; Protocol Metoprolol Tartrate (Metoprolol Tartrate 5 Mg/5 Ml Vial) 5 mg IVPUSH Q6H [facility] Last Admin: 01/18/24 14:03 Dose: 5 mg Midazolam HCl (Midazolam Hcl/Pf 2 Mg/2 Ml Vial) 2 mg IVPUSH Q1H PRN PRN Reason: Agitation Last Admin: 01/17/24 20:38 Dose: 2 mg Nicotine (Nicotine 21 Mg Patch.Td24) 21 mg TRANSDERMA DAILY PRN PRN Reason: smoking cessation Nicotine Polacrilex (Nicotine Polacrilex 2 Mg Gum) 4 mg BUCCAL Q2H PRN PRN Reason: Nicotine Cravings Omeprazole (Omeprazole 20 Mg Capsule.Dr) 20 mg PO BID@0630,1630 [facility] Last Admin: 01/18/24 15:56 Dose: 20 mg Ondansetron HCl (Ondansetron Hcl 4 Mg/2 Ml Vial) 4 mg IVPUSH Q8H PRN PRN Reason: Nausea and Vomiting Pharmacy Consult (Consult Rx Vancomycin Dosing) 1 each MISCELLANE DAILY PRN PRN Reason: Consult order Polyethylene Glycol (Polyethylene Glycol 3350 17 Gm Powd.Pack) 17 gm PO DAILY PRN PRN Reason: Constipation Polyethylene Glycol (Polyethylene Glycol 3350 17 Gm Powd.Pack) 17 gm PO DAILY [facility] Last Admin: 01/18/24 08:52 Dose: 17 gm Quetiapine Fumarate (Quetiapine Fumarate 25 Mg Tablet) 25 mg PO BID [facility] Last Admin: 01/18/24 08:52 Dose: 25 mg Senna/Docusate Sodium (Sennosides/Docusate Sodium Tablet) 2 tab PO DAILY [facility] Last Admin: 01/18/24 08:52 Dose: 2 tab Sodium Chloride (0.9 % Sodium Chloride Flush 3 Ml Syringe) 3 ml IVFLUSH QSHIFT [facility] Last Admin: 01/18/24 15:50 Dose: 3 ml Tamsulosin HCl (Tamsulosin Hcl 0.4 Mg Capsule) 0.4 mg PO DAILY@1999 [facility] Last Admin: 01/17/24 20:16 Dose: 0.4 mg Trazodone HCl (Trazodone Hcl 50 Mg Tablet) 50 mg PO DAILY@1999 [facility] Last Admin: 01/16/24 23:16 Dose: 50 mg Trazodone HCl (Trazodone Hcl 50 Mg Tablet) 50 mg PO BEDTIME MRX1 PRN PRN Reason: Insomnia Last Admin: 01/16/24 22:30 Dose: 50 mg Vitamin D (Cholecalciferol (Vitamin D3) 25 Mcg Tablet) 25 mcg PO DAILY@08 [facility] Last Admin: 01/18/24 08:52 Dose: 25 mcg Allergies Allergies Allergy/AdvReac Type Severity Reaction Status Date / Time lithium [Donna] Allergy Severe Toxicity Verified 01/10/24 05:05 thiothixene Allergy Severe Swelling Verified 01/10/24 05:05 benztropine Allergy Unknown benztropine Verified 12/30/23 15:59 mesylate- unknown gabapentin [From NEURONTIN] Allergy Unknown Unknown Verified 01/10/24 05:05 fluphenazine [From Prolixin] Allergy Unknown Verified 01/10/24 05:04 barium sulfate AdvReac Intermediate Nausea and Verified 01/10/24 05:05 [BARIUM SULFATE] Vomiting haloperidol AdvReac Intermediate Muscle Verified 01/10/24 05:05 tension in legs diphenhydramine AdvReac Unknown urinary Verified 01/10/24 05:05 [From Benadryl] retention Assessment & Plan Assessment & Plan (1) Schizoaffective disorder: Qualifiers: Schizoaffective disorder type: bipolar Qualified Code(s): F25.0 - Schizoaffective disorder, bipolar type Status: Acute Code(s): F25.9 - Schizoaffective disorder, unspecified Plan Hospital course: 1.Pt has long hx of schizoaffective and decompensation can be severe. He first came to ED and admitted to medical for SBO so stopped Clozapine as concern for etiology 2. Cleared medically but off Clozapine, Patient became depressed, transferred to psych for re-titration of Clozapine 3. this week suddenly became, delirious, febrile, tachy and tachypneic; Clozapine stopped to rule out NMS (no rigidity; labs not supporting NMA); pt transferred to medical, then ICU; started on ABx, improved and now back to medical floor doing much better on IV antibiotic -Question: improved since on Abx? VS. resolved Clozapine toxicity from too quick a titration (pt symptoms improvement coincided with both starting Abx and stopping Clozapine...). IMPRESSION/PLAN: Pt much better and actually at baseline. However, mood will not last w/out resuming Clozapine titration. -will restart Clozapine at 50mg BID and resume titartation but at slower rate (level pending); pt was at Clozapine 225mg before dc'd -restarted Latuda 60mg daily to help stave off return of depression -Normally he's on Clozapine dose is 275mg daily -continue tx on medical floor; will continue to follow Total time managing care of this patient today ____ minutes. Patient educated on: diagnosis, medication risk/benefits and medical condition Informed Consent: understands and further education needed
[2024-01-18] MEDS: Lurasidone HCl 40 MG TABLET PO (18:16)
[2024-01-18 20:24] LABS: Glucose, Whole Blood 141 mg/dL (60-115)
[2024-01-18] MEDS: cloZAPine 25 MG TABLET 50 MG PO (22:25)
[2024-01-18] MEDS: Tamsulosin HCL 0.4 MG CAPSULE PO (22:26)
[2024-01-18] MEDS: Atorvastatin Calcium 20 MG TABLET PO (22:26)
[2024-01-19] MEDS: 0.9 % Sodium Chloride Flush 3 ML SYRINGE IVFLUSH ×4 (00:26→21:29)
[2024-01-19] MEDS: cefEPime HCl 2 GM in 0.9 % Sodium Chloride 50 ML IV ×2 (01:59→13:55)
[2024-01-19] MEDS: Metoprolol Tartrate 5 MG/5 ML VIAL IVPUSH ×4 (02:00→21:27)
[2024-01-19 03:08] VITALS: BP 158/92; PULSE 87; RESP 18; TEMP 36.2; O2SAT 97
[2024-01-19] MEDS: Omeprazole 20 MG CAPSULE.DR PO ×2 (05:35→16:45)
[2024-01-19 05:48] LABS: MANUAL DIFF FLAG NO
[2024-01-19 05:53] VITALS: BMI 36.5
[2024-01-19 05:56] LABS: Basophils Percent Auto 0.6 % (0-2); Eosinophils Absolute Auto 0.1 X10*3/uL (0.0-0.4); Eosinophils Percent Auto 3.5 % (0-4); Hematocrit 31.7 % (42.0-52.0); Hemoglobin 9.8 g/dl (14.0-18.0); Imm Gran Abs Auto 0.01 X10*3/uL (0.00-0.03); Imm Gran Pct Auto 0.3 % (0.0-0.4); Lymphocytes Absolute Auto 0.5 X10*3/uL (1.2-4.9); Lymphocytes Percent Auto 14.9 % (20-40); Mean Corpuscular HGB Conc 30.9 g/dl (31.0-36.0); Mean Corpuscular Hemoglobin 26.8 pg (27.0-33.0); Mean Corpuscular Volume 86.6 fL (80.0-98.0); Monocytes Absolute Auto 0.4 X10*3/uL (0.1-1.2); Monocytes Percent Auto 10.5 % (2-11); Neutrophils Absolute Auto 2.4 x10*3/uL (2.0-8.3); Neutrophils Percent Auto 70.2 % (45-73); Red Blood Count 3.66 X10*6/uL (4.60-5.80); Red Cell Distribution Width 15.1 % (11.0-16.0); White Blood Count 3.4 X10*3/uL (4.8-10.8)
[2024-01-19 06:00] LABS: Platelet Count 62 X10*3/uL (160-400)
[2024-01-19] MEDS: vancomycin HCL 750 MG in 0.9 % Sodium Chloride 250 ML 265 MG IV ×2 (06:01→23:09)
[2024-01-19 06:11] LABS: Anion Gap 10 (12-20); Blood Urea Nitrogen 17 mg/dL (9-16); Calcium 8.9 mg/dL (8.4-10.2); Carbon Dioxide 25 mmol/L (22-29); Chloride 117 mmol/L (96-108); Estimated Glomerular Filt Rate > 60; Glucose Random 166 mg/dL (60-115); Potassium 4.1 mmol/L (3.3-5.1); Sodium 148 mmol/L (135-145)
[2024-01-19 06:29] LABS: Norclozapine 313 mcg/L (25-400)
[2024-01-19] MEDS: Lactated Ringers 1,000 ML 125 ML IVCONT (06:35)
[2024-01-19 06:41] LABS: Clozapine (Clozaril) 1574
[2024-01-19 07:39] LABS: Glucose, Whole Blood 140 mg/dL (60-115)
[2024-01-19 07:49] VITALS: BP 169/85; PULSE 84; RESP 20; TEMP 36.1; O2SAT 97
[2024-01-19] MEDS: Sennosides/Docusate Sodium TABLET 2 TAB PO (08:04)
[2024-01-19] MEDS: Cholecalciferol (Vitamin D3) 25 MCG TABLET PO (08:04)
[2024-01-19] MEDS: QUEtiapine Fumarate 25 MG TABLET PO ×2 (08:04→21:28)
[2024-01-19] MEDS: Docusate Sodium 100 MG CAPSULE PO ×2 (08:04→21:28)
[2024-01-19] MEDS: polyethylene glycoL 3350 17 GM POWD.PACK PO (08:05)
[2024-01-19] MEDS: Acetaminophen 1,000 MG/100 ML PIGGYBACK 400 MG IV (08:05)
[2024-01-19 12:00] VITALS: BP 168/86; PULSE 95; RESP 20; TEMP 36.1; O2SAT 98
[2024-01-19 12:19] LABS: Glucose, Whole Blood 105 mg/dL (60-115)
--- NOTE | 2024-01-19 13:25 | HO.PM.IMPN ---
Subjective Subjective Date of Service: 01/19/24 Interval History: Continue to improve. No acute behavioral issues Review of Systems Denies chest pain Denies shortness of breath Denies nausea vomiting diarrhea Denies fever chills Physical Exam Vital Signs: Vital Signs: Last Vital Signs Temp 97 F 01/19/24 12:00 Pulse 95 01/19/24 12:00 Resp 20 01/19/24 12:00 BP 168/86 H 01/19/24 12:00 Pulse Ox 98 01/19/24 12:00 O2 Del Method Nasal Cannula 01/19/24 12:00 O2 Flow Rate 1 01/19/24 12:00 BMI result Body Mass Index 36.5 Const: Other: Awake alert; flat affect Resp: Other: Clear to auscultation bilaterally no rales rhonchi or wheezes Cardio: Other: No S4; positive S1-S2; no S3 murmurs rubs or gallops GI: Other: Soft nontender nondistended normoactive bowel sounds Extrem: Other: No edema bilateral Objective Data Active Medications Al Hydroxide/Mg Hydroxide (Magnesium Hydrox/Alum Hydrox 30 Ml Oral.Susp) 10 ml PO TID PRN PRN Reason: Indigestion Albuterol Sulfate (Albuterol Sulfate 90 Mcg 8 Gm Inhaler) 2 puff INHALE Q6H PRN PRN Reason: Shortness Of Breath Or Wheezing Aspirin (Aspirin Enteric Coated 81 Mg Tablet.) 81 mg PO DAILY@08 [facility] Last Admin: 01/17/24 08:16 Dose: 81 mg Documented By: HOWIE Atorvastatin Calcium (Atorvastatin Calcium 20 Mg Tablet) 20 mg PO DAILY@1999 [facility] Last Admin: 01/18/24 22:26 Dose: 20 mg Documented By: DAREK Clozapine (Clozapine 25 Mg Tablet) 50 mg PO BID [facility] Last Admin: 01/19/24 11:08 Dose: Not Given Documented By: LC Non-Admin Reason: Physician Held Med Docusate Sodium (Docusate Sodium 100 Mg Capsule) 100 mg PO BID@799,1999 [facility] Last Admin: 01/19/24 08:04 Dose: 100 mg Documented By: LC Glucose (Glucose Gel 15 Gm Gel..Gram.) 15 gm PO Q15M PRN; Protocol PRN Reason: per Hypoglycemia Standing Ord. Dextrose (D10) 250 mls @ 750 mls/hr IV Q15M PRN; Protocol PRN Reason: per Hypoglycemia Standing Ord. Lactated Ringer's (Lr) 1,000 mls @ 125 mls/hr IVCONT .Q8H [facility] Last Admin: 01/19/24 06:35 Dose: 125 mls/hr Documented By: MYA Cefepime HCl 2 gm/ Sodium (Chloride) 50 mls @ 100 mls/hr IV Q12H [facility] Last Infusion: 01/19/24 02:29 Dose: Infused Documented By: MYA Vancomycin HCl 750 mg/ Sodium (Chloride) 265 mls @ 265 mls/hr IV Q8H [facility] Last Infusion: 01/19/24 07:19 Dose: Infused Documented By: LC Insulin Human Lispro (Insulin Lispro 100 Unit/Ml 3 Ml Vial) 0 unit SUBCUT QIDACHS [facility]; Protocol Last Admin: 01/19/24 12:23 Dose: Not Given Documented By: LC Non-Admin Reason: No Insulin Coverage Lorazepam (Lorazepam 2 Mg/Ml Vial) 1 mg IVPUSH Q8H PRN PRN Reason: Agitation Lurasidone HCl (Lurasidone Hcl 40 Mg Tablet) 40 mg PO DAILY@1800 [facility] Magnesium Hydroxide (Milk Of Magnesia 30 Ml Oral.Susp) 30 ml PO DAILY PRN PRN Reason: Constipation Metoprolol Tartrate (Metoprolol Tartrate 25 Mg Tablet) 25 mg PO QID [facility]; Protocol Metoprolol Tartrate (Metoprolol Tartrate 5 Mg/5 Ml Vial) 5 mg IVPUSH Q6H [facility] Last Admin: 01/19/24 08:05 Dose: 5 mg Documented By: LC Midazolam HCl (Midazolam Hcl/Pf 2 Mg/2 Ml Vial) 2 mg IVPUSH Q1H PRN PRN Reason: Agitation Last Admin: 01/17/24 20:38 Dose: 2 mg Documented By: LUIS Nicotine (Nicotine 21 Mg Patch.Td24) 21 mg TRANSDERMA DAILY PRN PRN Reason: smoking cessation Nicotine Polacrilex (Nicotine Polacrilex 2 Mg Gum) 4 mg BUCCAL Q2H PRN PRN Reason: Nicotine Cravings Omeprazole (Omeprazole 20 Mg Capsule.Dr) 20 mg PO BID@0630,1630 [facility] Last Admin: 01/19/24 05:35 Dose: 20 mg Documented By: MYA Ondansetron HCl (Ondansetron Hcl 4 Mg/2 Ml Vial) 4 mg IVPUSH Q8H PRN PRN Reason: Nausea and Vomiting Pharmacy Consult (Consult Rx Vancomycin Dosing) 1 each MISCELLANE DAILY PRN PRN Reason: Consult order Polyethylene Glycol (Polyethylene Glycol 3350 17 Gm Powd.Pack) 17 gm PO DAILY PRN PRN Reason: Constipation Polyethylene Glycol (Polyethylene Glycol 3350 17 Gm Powd.Pack) 17 gm PO DAILY [facility] Last Admin: 01/19/24 08:05 Dose: 17 gm Documented By: LC Quetiapine Fumarate (Quetiapine Fumarate 25 Mg Tablet) 25 mg PO BID [facility] Last Admin: 01/19/24 08:04 Dose: 25 mg Documented By: LC Senna/Docusate Sodium (Sennosides/Docusate Sodium Tablet) 2 tab PO DAILY [facility] Last Admin: 01/19/24 08:04 Dose: 2 tab Documented By: LC Sodium Chloride (0.9 % Sodium Chloride Flush 3 Ml Syringe) [address] [facility] Last Admin: 01/19/24 08:05 Dose: 3 ml Documented By: LC Tamsulosin HCl (Tamsulosin Hcl 0.4 Mg Capsule) 0.4 mg PO DAILY@1999 [facility] Last Admin: 01/18/24 22:26 Dose: 0.4 mg Documented By: DAREK Trazodone HCl (Trazodone Hcl 50 Mg Tablet) 50 mg PO DAILY@1999 [facility] Last Admin: 01/16/24 23:16 Dose: 50 mg Documented By: SINDHU Trazodone HCl (Trazodone Hcl 50 Mg Tablet) 50 mg PO BEDTIME MRX1 PRN PRN Reason: Insomnia Last Admin: 01/16/24 22:30 Dose: 50 mg Documented By: SINDHU Comments: no relief after scheduled dose. Vitamin D (Cholecalciferol (Vitamin D3) 25 Mcg Tablet) 25 mcg PO DAILY@0800 [facility] Last Admin: 01/19/24 08:04 Dose: 25 mcg Documented By: LC Labs 01/19/24 05:35 01/19/24 05:35 Labs: Laboratory Results - last 24 hr 01/15/24 01/18/24 01/18/24 14:31 16:34 20:14 MCV MCH MCHC RDW Plt Count MPV Immature Gran % (Auto) Neut % (Auto) Lymph % (Auto) [place] % (Auto) Eos % (Auto) Baso % (Auto) Lymph # (Auto) [place] # (Auto) Eos # (Auto) Baso # (Auto) Abs Immat Gran (auto) Absolute Neuts (auto) Absolute Nucleated RBC Nucleated RBC % (auto) Anion Gap Estim Creat Clear Calc Estimated GFR POC Glucose 164 H 141 H Random Glucose Calcium Clozapine 1574 Norclozapine 313 01/19/24 01/19/24 01/19/24 05:35 07:10 12:10 MCV 86.6 MCH 26.8 L MCHC 30.9 L RDW 15.1 Plt Count 62 L MPV TNP Immature Gran % (Auto) 0.3 Neut % (Auto) 70.2 Lymph % (Auto) 14.9 L [place] % (Auto) 10.5 Eos % (Auto) 3.5 Baso % (Auto) 0.6 Lymph # (Auto) 0.5 L [place] # (Auto) 0.4 Eos # (Auto) 0.1 Baso # (Auto) 0.0 Abs Immat Gran (auto) 0.01 Absolute Neuts (auto) 2.4 Absolute Nucleated RBC 0.000 Nucleated RBC % (auto) 0.0 Anion Gap 10 L Estim Creat Clear Calc 87.0 Estimated GFR > 60 POC Glucose 140 H 105 Random Glucose 166 H Calcium 8.9 Clozapine Norclozapine Microbiology Microbiology Results: Microbiology 01/17/24 14:26 Urine Culture - Preliminary Urine Catheterized - Finn Catheter Gram negative chin 01/17/24 16:06 Gram Stain - Final Cerebrospinal Fluid CSF Examination - Final Fluid Description - Final CSF Culture - Preliminary No growth after 1 day 01/17/24 13:53 Blood Culture - Preliminary Blood - Venous No growth after 24 hours. 01/17/24 13:53 Blood Culture - Preliminary Blood - Venous No growth after 24 hours. 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 Found to have mildly elevated troponins, JUHI, elevated CRP; became febrile to 1044, altered, agitated, tremulous on 01/17/24. 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 Transferred to ICU.Improved and stepped down to IMC 01/18/24 1.Fever, acute toxic-metabolic encephalopathy...resolved -Clozaril up titration as per psych -follow clinically -LP/Cultures negative -prelim urine culture 01/16... GNRs. -vancomycin/cefepime (2)... Adjust as per pending cultures 2.Acute hypoxic resp failure due to multifocal PNA - vancomycin/cefepime(2) -wean O2 as tolerated 3.JUHI - resolved with volume repletion -follow renals/divalents 4.CAD/HOCM -stable and well compensated -continue ASA, atorvastatin, metoprolol 5.DM2 -acceptable control on current therapies -lispro correctional scale -adjust as indicated 6.Schizoaffective disorder -appreciate Psychiatry input -meds at their direction Heparin Full code Patient requires ongoing hospitalization for IV antibiotics pending cultures; high risk for return of metabolic encephalopathy if DC before cultures identified Quality Stroke Does the patient have a stroke diagnosis?: No VTE Prior VTE?: No VTE Risk Level:: Medical - moderate - high VTE Device Contraindication: Treatment Not Indicated VTE Drug Contraindication: N/A - Med Ordered
[2024-01-19 13:31] LABS: Vancomycin Random 21.6 mcg/mL (15-20)
--- NOTE | 2024-01-19 14:01 | HE.PHANOTE ---
RE: VANCO DOSING Random came back as .6, will hold the dose @1500 and resume @2300. Next random is scheduled for 01/20/24 @1300.
[2024-01-19] MEDS: Dextrose 5 % 1,000 ML 125 ML IVCONT ×2 (15:37→23:07)
[2024-01-19 15:41] VITALS: BP 155/82; PULSE 62; RESP 20; TEMP 36.1; O2SAT 98
[2024-01-19 16:36] LABS: Glucose, Whole Blood 191 mg/dL (60-115)
[2024-01-19] MEDS: Lurasidone HCl 40 MG TABLET PO (16:45)
[2024-01-19] MEDS: Insulin Lispro 100 UNIT/ML 3 ML VIAL SUBCUT ×2 (16:45→21:29)
[2024-01-19 19:02] VITALS: BP 150/85; PULSE 75; RESP 18; TEMP 36.3; O2SAT 97
[2024-01-19 20:29] LABS: Glucose, Whole Blood 157 mg/dL (60-115)
[2024-01-19] MEDS: cloZAPine 25 MG TABLET 50 MG PO (21:27)
[2024-01-19] MEDS: Tamsulosin HCL 0.4 MG CAPSULE PO (21:28)
[2024-01-19] MEDS: Atorvastatin Calcium 20 MG TABLET PO (21:28)
[2024-01-19 23:13] VITALS: BP 148/60; PULSE 72; RESP 18; TEMP 36.5; O2SAT 97
[2024-01-20] VITALS (7 sets, daily range): BP systolic 130–178; BP diastolic 70–98; PULSE 65–83; RESP 16–20; TEMP 36.1–36.8; O2SAT 97–98; BMI 36.5
[2024-01-20] MEDS: cefEPime HCl 2 GM in 0.9 % Sodium Chloride 50 ML IV ×2 (02:34→13:21)
[2024-01-20] MEDS: Metoprolol Tartrate 5 MG/5 ML VIAL IVPUSH ×4 (02:34→20:07)
[2024-01-20] MEDS: Omeprazole 20 MG CAPSULE.DR PO ×2 (05:46→17:35)
[2024-01-20 07:25] LABS: Glucose, Whole Blood 156 mg/dL (60-115)
[2024-01-20 07:29] LABS: MANUAL DIFF FLAG NO
[2024-01-20] MEDS: cloZAPine 25 MG TABLET 50 MG PO ×2 (07:51→20:08)
[2024-01-20] MEDS: QUEtiapine Fumarate 25 MG TABLET PO ×2 (07:51→20:08)
[2024-01-20] MEDS: polyethylene glycoL 3350 17 GM POWD.PACK PO (07:51)
[2024-01-20] MEDS: Sennosides/Docusate Sodium TABLET 2 TAB PO (07:51)
[2024-01-20] MEDS: Cholecalciferol (Vitamin D3) 25 MCG TABLET PO (07:52)
[2024-01-20] MEDS: Docusate Sodium 100 MG CAPSULE PO ×2 (07:52→20:08)
[2024-01-20] MEDS: 0.9 % Sodium Chloride Flush 3 ML SYRINGE IVFLUSH ×3 (07:52→21:39)
[2024-01-20] MEDS: vancomycin HCL 750 MG in 0.9 % Sodium Chloride 250 ML 265 MG IV (07:52)
[2024-01-20] MEDS: Insulin Lispro 100 UNIT/ML 3 ML VIAL SUBCUT ×4 (07:53→21:37)
[2024-01-20 07:54] LABS: Anion Gap 11 (12-20); Blood Urea Nitrogen 12 mg/dL (9-16); Calcium 9.1 mg/dL (8.4-10.2); Carbon Dioxide 28 mmol/L (22-29); Chloride 113 mmol/L (96-108); Estimated Glomerular Filt Rate > 60; Glucose Random 169 mg/dL (60-115); Sodium 148 mmol/L (135-145)
[2024-01-20 08:00] LABS: Basophils Percent Auto 0.3 % (0-2); Eosinophils Absolute Auto 0.1 X10*3/uL (0.0-0.4); Hematocrit 32.6 % (42.0-52.0); Imm Gran Abs Auto 0.01 X10*3/uL (0.00-0.03); Imm Gran Pct Auto 0.3 % (0.0-0.4); Lymphocytes Absolute Auto 0.6 X10*3/uL (1.2-4.9); Lymphocytes Percent Auto 13.9 % (20-40); Mean Corpuscular HGB Conc 30.7 g/dl (31.0-36.0); Mean Corpuscular Hemoglobin 26.9 pg (27.0-33.0); Mean Corpuscular Volume 87.6 fL (80.0-98.0); Monocytes Absolute Auto 0.4 X10*3/uL (0.1-1.2); Monocytes Percent Auto 8.8 % (2-11); Neutrophils Absolute Auto 2.9 x10*3/uL (2.0-8.3); Neutrophils Percent Auto 73.7 % (45-73); Red Blood Count 3.72 X10*6/uL (4.60-5.80)
[2024-01-20 08:01] LABS: Platelet Count 56 X10*3/uL (160-400)
[2024-01-20] MEDS: Dextrose 5 % 1,000 ML 125 ML IVCONT ×2 (09:52→21:38)
[2024-01-20 11:36] LABS: Glucose, Whole Blood 157 mg/dL (60-115)
--- NOTE | 2024-01-20 12:24 | HO.PM.IMPN ---
Subjective Subjective Date of Service: 01/20/24 Interval History: No acute issues overnight. Behavior stable. Review of Systems Denies chest pain Denies shortness of breath Denies nausea vomiting diarrhea Denies fever chills Physical Exam Vital Signs: Vital Signs: Last Vital Signs Temp 97 F 01/20/24 12:00 Pulse 68 01/20/24 12:00 Resp 16 01/20/24 12:00 BP 157/91 H 01/20/24 12:00 Pulse Ox 97 01/20/24 12:00 O2 Del Method Nasal Cannula 01/20/24 12:00 O2 Flow Rate 2 01/20/24 12:00 BMI result Body Mass Index 36.5 Const: Other: Awake alert; flat affect Resp: Other: Clear to auscultation bilaterally no rales rhonchi or wheezes Cardio: Other: No S4; positive S1-S2; no S3 murmurs rubs or gallops GI: Other: Soft nontender nondistended normoactive bowel sounds Extrem: Other: No edema bilateral Objective Data Active Medications Al Hydroxide/Mg Hydroxide (Magnesium Hydrox/Alum Hydrox 30 Ml Oral.Susp) 10 ml PO TID PRN PRN Reason: Indigestion Albuterol Sulfate (Albuterol Sulfate 90 Mcg 8 Gm Inhaler) 2 puff INHALE Q6H PRN PRN Reason: Shortness Of Breath Or Wheezing Aspirin (Aspirin Enteric Coated 81 Mg Tablet.Dr) 81 mg PO DAILY@0800 [facility] Last Admin: 01/17/24 08:16 Dose: 81 mg Documented By: HOWIE Atorvastatin Calcium (Atorvastatin Calcium 20 Mg Tablet) 20 mg PO DAILY@1999 [facility] Last Admin: 01/19/24 21:28 Dose: 20 mg Documented By: SAUL Clozapine (Clozapine 25 Mg Tablet) 50 mg PO BID [facility] Last Admin: 01/20/24 07:51 Dose: 50 mg Documented By: LC Docusate Sodium (Docusate Sodium 100 Mg Capsule) 100 mg PO BID@799,1999 [facility] Last Admin: 01/20/24 07:52 Dose: 100 mg Documented By: LC Glucose (Glucose Gel 15 Gm Gel..Gram.) 15 gm PO Q15M PRN; Protocol PRN Reason: per Hypoglycemia Standing Ord. Dextrose (D10) 250 mls @ 750 mls/hr IV Q15M PRN; Protocol PRN Reason: per Hypoglycemia Standing Ord. Cefepime HCl 2 gm/ Sodium (Chloride) 50 mls @ 100 mls/hr IV Q12H [facility] Last Infusion: 01/20/24 03:04 Dose: Infused Documented By: SAUL Vancomycin HCl 750 mg/ Sodium (Chloride) 265 mls @ 265 mls/hr IV Q8H [facility] Last Infusion: 01/20/24 09:58 Dose: Infused Documented By: LC Dextrose (D5w) 1,000 mls @ 125 mls/hr IVCONT .Q8H [facility] Last Admin: 01/20/24 09:52 Dose: 125 mls/hr Documented By: LC Dextrose (D5w) 1,000 mls @ 125 mls/hr IVCONT .Q8H [facility] Last Admin: 01/20/24 09:53 Dose: Not Given Documented By: LC Non-Admin Reason: IV Running Insulin Human Lispro (Insulin Lispro 100 Unit/Ml 3 Ml Vial) 0 unit SUBCUT QIDACHS [facility]; Protocol Last Admin: 01/20/24 12:12 Dose: 2 unit Documented By: LC Lorazepam (Lorazepam 2 Mg/Ml Vial) 1 mg IVPUSH Q8H PRN PRN Reason: Agitation Lurasidone HCl (Lurasidone Hcl 40 Mg Tablet) 40 mg PO DAILY@1800 [facility] Last Admin: 01/19/24 16:45 Dose: 40 mg Documented By: LC Magnesium Hydroxide (Milk Of Magnesia 30 Ml Oral.Susp) 30 ml PO DAILY PRN PRN Reason: Constipation Metoprolol Tartrate (Metoprolol Tartrate 25 Mg Tablet) 25 mg PO QID [facility]; Protocol Metoprolol Tartrate (Metoprolol Tartrate 5 Mg/5 Ml Vial) 5 mg IVPUSH Q6H [facility] Last Admin: 01/20/24 07:53 Dose: 5 mg Documented By: LC Midazolam HCl (Midazolam Hcl/Pf 2 Mg/2 Ml Vial) 2 mg IVPUSH Q1H PRN PRN Reason: Agitation Last Admin: 01/17/24 20:38 Dose: 2 mg Documented By: LUIS Nicotine (Nicotine 21 Mg Patch.Td24) 21 mg TRANSDERMA DAILY PRN PRN Reason: smoking cessation Nicotine Polacrilex (Nicotine Polacrilex 2 Mg Gum) 4 mg BUCCAL Q2H PRN PRN Reason: Nicotine Cravings Omeprazole (Omeprazole 20 Mg Capsule.Dr) 20 mg PO BID@0630,1630 [facility] Last Admin: 01/20/24 05:46 Dose: 20 mg Documented By: SAUL Ondansetron HCl (Ondansetron Hcl 4 Mg/2 Ml Vial) 4 mg IVPUSH Q8H PRN PRN Reason: Nausea and Vomiting Pharmacy Consult (Consult Rx Vancomycin Dosing) 1 each MISCELLANE DAILY PRN PRN Reason: Consult order Polyethylene Glycol (Polyethylene Glycol 3350 17 Gm Powd.Pack) 17 gm PO DAILY PRN PRN Reason: Constipation Polyethylene Glycol (Polyethylene Glycol 3350 17 Gm Powd.Pack) 17 gm PO DAILY [facility] Last Admin: 01/20/24 07:51 Dose: 17 gm Documented By: LC Quetiapine Fumarate (Quetiapine Fumarate 25 Mg Tablet) 25 mg PO BID [facility] Last Admin: 01/20/24 07:51 Dose: 25 mg Documented By: LC Senna/Docusate Sodium (Sennosides/Docusate Sodium Tablet) 2 tab PO DAILY [facility] Last Admin: 01/20/24 07:51 Dose: 2 tab Documented By: LC Sodium Chloride (0.9 % Sodium Chloride Flush 3 Ml Syringe) [facility] Last Admin: 01/20/24 07:52 Dose: 3 ml Documented By: LC Tamsulosin HCl (Tamsulosin Hcl 0.4 Mg Capsule) 0.4 mg PO DAILY@1999 [facility] Last Admin: 01/19/24 21:28 Dose: 0.4 mg Documented By: SAUL Trazodone HCl (Trazodone Hcl 50 Mg Tablet) 50 mg PO DAILY@1999 [facility] Last Admin: 01/16/24 23:16 Dose: 50 mg Documented By: SINDHU Trazodone HCl (Trazodone Hcl 50 Mg Tablet) 50 mg PO BEDTIME MRX1 PRN PRN Reason: Insomnia Last Admin: 01/16/24 22:30 Dose: 50 mg Documented By: SINDHU Comments: no relief after scheduled dose. Vitamin D (Cholecalciferol (Vitamin D3) 25 Mcg Tablet) 25 mcg PO DAILY@0800 [facility] Last Admin: 01/20/24 07:52 Dose: 25 mcg Documented By: LC Labs 01/20/24 06:35 01/20/24 06:35 Labs: Laboratory Results - last 24 hr 01/19/24 01/19/24 01/19/24 12:56 16:29 20:22 MCV MCH MCHC RDW Plt Count MPV Immature Gran % (Auto) Neut % (Auto) Lymph % (Auto) [place] % (Auto) Eos % (Auto) Baso % (Auto) Lymph # (Auto) [place] # (Auto) Eos # (Auto) Baso # (Auto) Abs Immat Gran (auto) Absolute Neuts (auto) Absolute Nucleated RBC Nucleated RBC % (auto) Anion Gap Estim Creat Clear Calc Estimated GFR POC Glucose 191 H 157 H Random Glucose Calcium Random Vancomycin 21.6 H 01/20/24 01/20/24 01/20/24 06:35 06:57 11:18 MCV 87.6 MCH 26.9 L MCHC 30.7 L RDW 15.0 Plt Count 56 L MPV Not Reportable Immature Gran % (Auto) 0.3 Neut % (Auto) 73.7 H Lymph % (Auto) 13.9 L [place] % (Auto) 8.8 Eos % (Auto) 3.0 Baso % (Auto) 0.3 Lymph # (Auto) 0.6 L [place] # (Auto) 0.4 Eos # (Auto) 0.1 Baso # (Auto) 0.0 Abs Immat Gran (auto) 0.01 Absolute Neuts (auto) 2.9 Absolute Nucleated RBC 0.000 Nucleated RBC % (auto) 0.0 Anion Gap 11 L Estim Creat Clear Calc 87.0 Estimated GFR > 60 POC Glucose 156 H 157 H Random Glucose 169 H Calcium 9.1 Random Vancomycin Microbiology Microbiology Results: Microbiology 01/17/24 16:06 Gram Stain - Final Cerebrospinal Fluid CSF Examination - Final Fluid Description - Final CSF Culture - Preliminary No growth after 2 days 01/17/24 14:26 Urine Culture - Final Urine Catheterized - Finn Catheter Escherichia coli 01/17/24 13:53 Blood Culture - Preliminary Blood - Venous No growth after 48 hours. 01/17/24 13:53 Blood Culture - Preliminary Blood - Venous No growth after 48 hours. 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 Found to have mildly elevated troponins, JUHI, elevated CRP; became febrile to 1044, altered, agitated, tremulous on 01/17/24. 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 Transferred to ICU.Improved and stepped down to IMC 01/18/24 1.Fever, acute toxic-metabolic encephalopathy...resolved -Clozaril up titration as per psych -follow clinically -LP/Cultures negative -prelim urine culture 01/16... GNRs. -vancomycin/cefepime (3)... Adjust as per pending cultures 2.Acute hypoxic resp failure due to multifocal PNA - vancomycin/cefepime(3) -wean O2 as tolerated 3.JUHI - resolved with volume repletion -follow renals/divalents 4.CAD/HOCM -stable and well compensated -continue ASA, atorvastatin, metoprolol 5.DM2 -acceptable control on current therapies -lispro correctional scale -adjust as indicated 6.Schizoaffective disorder -appreciate Psychiatry input -meds at their direction Heparin Full code Patient requires ongoing hospitalization for IV antibiotics pending cultures; high risk for return of metabolic encephalopathy if DC before cultures identified Quality Stroke Does the patient have a stroke diagnosis?: No VTE Prior VTE?: No VTE Risk Level:: Medical - moderate - high VTE Device Contraindication: Treatment Not Indicated VTE Drug Contraindication: N/A - Med Ordered
[2024-01-20 13:28] LABS: Vancomycin Random 20.5 mcg/mL (15-20)
--- NOTE | 2024-01-20 13:44 | HE.PHANOTE ---
RE: VANCO DOSING Random came back as 20.5 which is higher than the predicted 14.5. Patient's renal functions (sCr and CrCl) stays the same. Both regular model and obese model were considered (BMI=34.3) but there's not much difference between the 2. Dose is held so medication can be cleared. New dose is 1000 mg q12h, restarting @2300 01/20/24, next random is @2100 on 01/21/24.
[2024-01-20 16:25] LABS: Glucose, Whole Blood 162 mg/dL (60-115)
[2024-01-20] MEDS: vancomycin HCL 1,000 MG in 0.9 % Sodium Chloride 250 ML 270 MG IV (20:08)
[2024-01-20] MEDS: Atorvastatin Calcium 20 MG TABLET PO (20:08)
[2024-01-20] MEDS: Tamsulosin HCL 0.4 MG CAPSULE PO (20:08)
[2024-01-20 20:18] LABS: Glucose, Whole Blood 183 mg/dL (60-115)
--- NOTE | 2024-01-21 | EEG_ITS ---
FINDINGS: Background waking activity consists of a poorly defined dig-iy-lbpcptfl voltage 6 to 7 hertz theta intermixed with movement and muscle artifacts. Photic stimulation was without activation. Hyperventilation was omitted. The patient was confused and restless during the recording. No sleep stages are identified. IMPRESSION: This EEG is considered abnormal due to moderate diffuse background slowing consistent with a diffuse encephalopathic process. No epileptiform discharges were noted. MD RADHA Dorsey/SERA / [phone]
[2024-01-21] MEDS: cefEPime HCl 2 GM in 0.9 % Sodium Chloride 50 ML IV ×2 (01:45→15:13)
[2024-01-21] MEDS: Metoprolol Tartrate 5 MG/5 ML VIAL IVPUSH ×2 (01:46→08:28)
[2024-01-21 03:16] VITALS: BP 166/80; PULSE 73; RESP 18; TEMP 36.6; O2SAT 96
[2024-01-21 05:25] VITALS: BMI 36.3
[2024-01-21] MEDS: Omeprazole 20 MG CAPSULE.DR PO ×2 (05:55→17:37)
[2024-01-21] MEDS: Dextrose 5 % 1,000 ML 125 ML IVCONT (05:55)
[2024-01-21 06:49] LABS: MANUAL DIFF FLAG NO
[2024-01-21 07:03] LABS: Basophils Percent Auto 0.5 % (0-2); Eosinophils Absolute Auto 0.1 X10*3/uL (0.0-0.4); Eosinophils Percent Auto 2.3 % (0-4); Hemoglobin 9.6 g/dl (14.0-18.0); Imm Gran Abs Auto 0.03 X10*3/uL (0.00-0.03); Imm Gran Pct Auto 0.7 % (0.0-0.4); Lymphocytes Absolute Auto 0.6 X10*3/uL (1.2-4.9); Lymphocytes Percent Auto 14.6 % (20-40); Mean Corpuscular Hemoglobin 26.9 pg (27.0-33.0); Mean Corpuscular Volume 86.8 fL (80.0-98.0); Monocytes Absolute Auto 0.3 X10*3/uL (0.1-1.2); Monocytes Percent Auto 6.9 % (2-11); Neutrophils Absolute Auto 3.2 x10*3/uL (2.0-8.3); Red Blood Count 3.57 X10*6/uL (4.60-5.80); Red Cell Distribution Width 14.7 % (11.0-16.0); White Blood Count 4.3 X10*3/uL (4.8-10.8)
[2024-01-21 07:04] LABS: Platelet Count 52 X10*3/uL (160-400)
[2024-01-21 07:15] LABS: Anion Gap 11 (12-20); Blood Urea Nitrogen 10 mg/dL (9-16); Calcium 8.9 mg/dL (8.4-10.2); Carbon Dioxide 27 mmol/L (22-29); Chloride 110 mmol/L (96-108); Creatinine Clr Calc Pharmacy 86.7; Estimated Glomerular Filt Rate > 60; Glucose Random 212 mg/dL (60-115); Potassium 3.7 mmol/L (3.3-5.1); Sodium 144 mmol/L (135-145)
[2024-01-21 07:15] LABS: Glucose, Whole Blood 175 mg/dL (60-115)
[2024-01-21 07:28] VITALS: BP 141/86; PULSE 55; RESP 18; TEMP 36.4; O2SAT 97
[2024-01-21] MEDS: cloZAPine 25 MG TABLET 50 MG PO ×2 (08:27→21:18)
[2024-01-21] MEDS: QUEtiapine Fumarate 25 MG TABLET PO ×2 (08:27→21:18)
[2024-01-21] MEDS: Cholecalciferol (Vitamin D3) 25 MCG TABLET PO (08:27)
[2024-01-21] MEDS: Docusate Sodium 100 MG CAPSULE PO (08:27)
[2024-01-21] MEDS: Insulin Lispro 100 UNIT/ML 3 ML VIAL SUBCUT ×3 (08:27→21:20)
[2024-01-21] MEDS: 0.9 % Sodium Chloride Flush 3 ML SYRINGE IVFLUSH ×2 (08:28→21:25)
[2024-01-21] MEDS: vancomycin HCL 1,000 MG in 0.9 % Sodium Chloride 250 ML 270 MG IV (08:28)
[2024-01-21 10:12] VITALS: BMI 36.3
--- NOTE | 2024-01-21 10:16 | MHC.CLN ---
RE: CONSULT: PT WITH INCREASED NUTRITION NEEDS R/T PRESSURE INJURY PO INTAKE 100% X 6MEALS DIET RX: REGULAR-APPROPRIATE RECOMMEND ADDING ENSURE MAX TO PROMOTE WOUND HEALING SUPP PROVIDES 300KCALS, 60G PROTEIN MONITOR PO INTAKE AND ENCOURAGE SUPPLEMENTS SEE ALSO CLINICAL NUTRITION ASSESSMENT
[2024-01-21 11:16] VITALS: BP 145/86; PULSE 74; RESP 18; TEMP 36.7; O2SAT 95
[2024-01-21 11:28] LABS: Glucose, Whole Blood 156 mg/dL (60-115)
--- NOTE | 2024-01-21 15:13 | HO.PM.IMPN ---
Subjective Subjective Date of Service: 01/21/24 Interval History: No acute issues overnight. no fevers or chills Review of Systems denies new c/o Physical Exam Vital Signs: Vital Signs: Last Vital Signs Temp 98.1 F 01/21/24 11:16 Pulse 74 01/21/24 11:16 Resp 18 01/21/24 11:16 BP 145/86 H 01/21/24 11:16 Pulse Ox 95 01/21/24 11:16 O2 Del Method Room Air 01/21/24 11:16 O2 Flow Rate 1 01/21/24 07:28 BMI result Body Mass Index 36.3 Appearance: Alert.? Oriented X3.?flat effect cvs: rrr, [id number] , no murmur res: clear to auscultation ,no rhonchii or wheezing abd: no rebound or guarding ,nt, bs present. ext pulses present , no cyanosis . neuro: axo3 , nonfocal. Objective Data Active Medications Al Hydroxide/Mg Hydroxide (Magnesium Hydrox/Alum Hydrox 30 Ml Oral.Susp) 10 ml PO TID PRN PRN Reason: Indigestion Albuterol Sulfate (Albuterol Sulfate 90 Mcg 8 Gm Inhaler) 2 puff INHALE Q6H PRN PRN Reason: Shortness Of Breath Or Wheezing Aspirin (Aspirin Enteric Coated 81 Mg Tablet.) 81 mg PO DAILY@0800 [facility] Last Admin: 01/17/24 08:16 Dose: 81 mg Documented By: HOWIE Atorvastatin Calcium (Atorvastatin Calcium 20 Mg Tablet) 20 mg PO DAILY@1999 [facility] Last Admin: 01/20/24 20:08 Dose: 20 mg Documented By: MASSIMO Clozapine (Clozapine 25 Mg Tablet) 50 mg PO BID [facility] Last Admin: 01/21/24 08:27 Dose: 50 mg Documented By: SANTANA Docusate Sodium (Docusate Sodium 100 Mg Capsule) 100 mg PO BID@0800,1999 [facility] Last Admin: 01/21/24 08:27 Dose: 100 mg Documented By: SANTANA Glucose (Glucose Gel 15 Gm Gel..Gram.) 15 gm PO Q15M PRN; Protocol PRN Reason: per Hypoglycemia Standing Ord. Cefepime HCl 2 gm/ Sodium (Chloride) 50 mls @ 100 mls/hr IV Q12H [facility] Last Infusion: 01/21/24 02:15 Dose: Infused Documented By: MASSIMO Vancomycin HCl 1,000 mg/ (Sodium Chloride) 270 mls @ 270 mls/hr IV Q12H [facility] Last Infusion: 01/21/24 09:46 Dose: Infused Documented By: SANTANA Insulin Human Lispro (Insulin Lispro 100 Unit/Ml 3 Ml Vial) 0 unit SUBCUT QIDACHS [facility]; Protocol Last Admin: 01/21/24 12:22 Dose: 2 unit Documented By: SANTANA Lorazepam (Lorazepam 2 Mg/Ml Vial) 1 mg IVPUSH Q8H PRN PRN Reason: Agitation Lurasidone HCl (Lurasidone Hcl 40 Mg Tablet) 40 mg PO DAILY@1800 [facility] Last Admin: 01/19/24 16:45 Dose: 40 mg Documented By: LC Magnesium Hydroxide (Milk Of Magnesia 30 Ml Oral.Susp) 30 ml PO DAILY PRN PRN Reason: Constipation Metoprolol Tartrate (Metoprolol Tartrate 25 Mg Tablet) 25 mg PO QID [facility]; Protocol Midazolam HCl (Midazolam Hcl/Pf 2 Mg/2 Ml Vial) 2 mg IVPUSH Q1H PRN PRN Reason: Agitation Last Admin: 01/17/24 20:38 Dose: 2 mg Documented By: LUIS Nicotine (Nicotine 21 Mg Patch.Td24) 21 mg TRANSDERMA DAILY PRN PRN Reason: smoking cessation Nicotine Polacrilex (Nicotine Polacrilex 2 Mg Gum) 4 mg BUCCAL Q2H PRN PRN Reason: Nicotine Cravings Omeprazole (Omeprazole 20 Mg Capsule.Dr) 20 mg PO BID@0630,1630 [facility] Last Admin: 01/21/24 05:55 Dose: 20 mg Documented By: MASSIMO Ondansetron HCl (Ondansetron Hcl 4 Mg/2 Ml Vial) 4 mg IVPUSH Q8H PRN PRN Reason: Nausea and Vomiting Pharmacy Consult (Consult Rx Vancomycin Dosing) 1 each MISCELLANE DAILY PRN PRN Reason: Consult order Polyethylene Glycol (Polyethylene Glycol 3350 17 Gm Powd.Pack) 17 gm PO DAILY PRN PRN Reason: Constipation Polyethylene Glycol (Polyethylene Glycol 3350 17 Gm Powd.Pack) 17 gm PO DAILY [facility] Last Admin: 01/21/24 08:29 Dose: Not Given Documented By: SANTANA Non-Admin Reason: diarrhea Quetiapine Fumarate (Quetiapine Fumarate 25 Mg Tablet) 25 mg PO BID [facility] Last Admin: 01/21/24 08:27 Dose: 25 mg Documented By: SANTANA Senna/Docusate Sodium (Sennosides/Docusate Sodium Tablet) 2 tab PO DAILY [facility] Last Admin: 01/21/24 08:29 Dose: Not Given Documented By: SANTANA Non-Admin Reason: diarrhea Sodium Chloride (0.9 % Sodium Chloride Flush 3 Ml Syringe) 3 ml IVFLUSH QSHIFT [facility] Last Admin: 01/21/24 08:28 Dose: 3 ml Documented By: SANTANA Tamsulosin HCl (Tamsulosin Hcl 0.4 Mg Capsule) 0.4 mg PO DAILY@1999 [facility] Last Admin: 01/20/24 20:08 Dose: 0.4 mg Documented By: MASSIMO Trazodone HCl (Trazodone Hcl 50 Mg Tablet) 50 mg PO DAILY@1999 [facility] Last Admin: 01/16/24 23:16 Dose: 50 mg Documented By: SINDHU Trazodone HCl (Trazodone Hcl 50 Mg Tablet) 50 mg PO BEDTIME MRX1 PRN PRN Reason: Insomnia Last Admin: 01/16/24 22:30 Dose: 50 mg Documented By: SINDHU Comments: no relief after scheduled dose. Vitamin D (Cholecalciferol (Vitamin D3) 25 Mcg Tablet) 25 mcg PO DAILY@0800 [facility] Last Admin: 01/21/24 08:27 Dose: 25 mcg Documented By: SANTANA Labs 01/21/24 06:14 01/21/24 06:14 Labs: Laboratory Results - last 24 hr 01/20/24 01/20/24 01/21/24 16:16 20:10 06:14 MCV 86.8 MCH 26.9 L MCHC 31.0 RDW 14.7 Plt Count 52 L MPV Not Reportable Immature Gran % (Auto) 0.7 H Neut % (Auto) 75.0 H Lymph % (Auto) 14.6 L [place] % (Auto) 6.9 Eos % (Auto) 2.3 Baso % (Auto) 0.5 Lymph # (Auto) 0.6 L [place] # (Auto) 0.3 Eos # (Auto) 0.1 Baso # (Auto) 0.0 Abs Immat Gran (auto) 0.03 Absolute Neuts (auto) 3.2 Absolute Nucleated RBC 0.000 Nucleated RBC % (auto) 0.0 Anion Gap 11 L Estim Creat Clear Calc 86.7 Estimated GFR > 60 POC Glucose 162 H 183 H Random Glucose 212 H Calcium 8.9 01/21/24 01/21/24 07:07 11:24 MCV MCH MCHC RDW Plt Count MPV Immature Gran % (Auto) Neut % (Auto) Lymph % (Auto) [place] % (Auto) Eos % (Auto) Baso % (Auto) Lymph # (Auto) [place] # (Auto) Eos # (Auto) Baso # (Auto) Abs Immat Gran (auto) Absolute Neuts (auto) Absolute Nucleated RBC Nucleated RBC % (auto) Anion Gap Estim Creat Clear Calc Estimated GFR POC Glucose 175 H 156 H Random Glucose Calcium Microbiology Microbiology Results: Microbiology 01/17/24 16:06 Gram Stain - Final Cerebrospinal Fluid CSF Examination - Final Fluid Description - Final CSF Culture - Preliminary No growth after 3 days. 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 Found to have mildly elevated troponins, JUHI, elevated CRP; became febrile , altered, agitated, tremulous on 01/17/24. 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 Transferred to ICU.Improved and stepped down to IMC 01/18/24 Fever, acute toxic-metabolic encephalopathy...resolved -Clozaril up titration as per psych -follow clinically -LP/Cultures negative -prelim urine culture 01/16... GNRs. -vancomycin/cefepime (3)... Adjust as per pending cultures vanco trough elevated -20 range ,hold vanco for now ,check vanco trough before next dose ( to decide further use). id eval. Acute hypoxic resp failure due to multifocal PNA - vancomycin/cefepime(3) -wean O2 as tolerated pancytopenia:? unclear etiology ? clozapine blood cultures neg @48 hrs csf-fluid cultures negative no gross bleeding or brusing iD and psych following, will d/w hematology JUHI - resolved with volume repletion -follow renals/divalents CAD/HOCM -stable and well compensated -continue ASA, atorvastatin, metoprolol DM2 -acceptable control on current therapies -lispro correctional scale -adjust as indicated Schizoaffective disorder -appreciate Psychiatry input -meds at their direction Heparin Full code Patient requires ongoing hospitalization for:multifocal PNA-need IV antibiotics pending cultures; high risk for return of metabolic encephalopathy if DC before cultures identified Quality Stroke Does the patient have a stroke diagnosis?: No VTE Prior VTE?: No VTE Risk Level:: Medical - moderate - high VTE Device Contraindication: Treatment Not Indicated VTE Drug Contraindication: N/A - Med Ordered
[2024-01-21 15:38] VITALS: BP 145/79; PULSE 89; RESP 18; TEMP 36.2; O2SAT 93
[2024-01-21 15:57] LABS: Glucose, Whole Blood 136 mg/dL (60-115)
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
[2024-01-21 17:25] LABS: Erythrocyte Sedimentation Rate 65 MM/HR (0-15)
[2024-01-21] MEDS: Lurasidone HCl 40 MG TABLET PO (17:37)
[2024-01-21 18:04] LABS: Rheumatoid Factor < 13.0 IU/mL (<15.0)
[2024-01-21 18:30] LABS: Folate 5.7 ng/mL (> or = 4.0); Vitamin B12 394 pg/mL (200-900)
[2024-01-21 20:00] VITALS: BP 163/87; PULSE 83; RESP 20; TEMP 37; O2SAT 95
[2024-01-21 20:59] LABS: Glucose, Whole Blood 161 mg/dL (60-115)
[2024-01-21] MEDS: Tamsulosin HCL 0.4 MG CAPSULE PO (21:18)
[2024-01-21] MEDS: Atorvastatin Calcium 20 MG TABLET PO (21:18)
[2024-01-21 23:44] VITALS: BP 155/93; PULSE 75; RESP 20; TEMP 36.8; O2SAT 95
[2024-01-22] VITALS (8 sets, daily range): BP systolic 148–169; BP diastolic 82–95; PULSE 70–79; RESP 20; TEMP 36.1–36.8; O2SAT 93–96; BMI 36.1
[2024-01-22] MEDS: cefEPime HCl 2 GM in 0.9 % Sodium Chloride 50 ML IV (02:34)
[2024-01-22] MEDS: LORazepam 2 MG/ML VIAL 1 MG IVPUSH (05:01)
[2024-01-22] MEDS: Omeprazole 20 MG CAPSULE.DR PO ×2 (05:49→16:28)
[2024-01-22 07:14] LABS: Glucose, Whole Blood 129 mg/dL (60-115)
[2024-01-22 07:40] LABS: Hemoglobin 9.8 g/dl (14.0-18.0)
[2024-01-22 07:42] LABS: Hematocrit 30.8 % (42.0-52.0); Mean Corpuscular HGB Conc 31.8 g/dl (31.0-36.0); Mean Corpuscular Hemoglobin 27.3 pg (27.0-33.0); Mean Corpuscular Volume 85.8 fL (80.0-98.0); Red Blood Count 3.59 X10*6/uL (4.60-5.80); Red Cell Distribution Width 14.6 % (11.0-16.0); White Blood Count 5.7 X10*3/uL (4.8-10.8)
[2024-01-22 07:52] LABS: Anion Gap 12 (12-20); Blood Urea Nitrogen 14 mg/dL (9-16); Calcium 9.1 mg/dL (8.4-10.2); Carbon Dioxide 27 mmol/L (22-29); Chloride 112 mmol/L (96-108); Creatinine Clr Calc Pharmacy 98.3; Estimated Glomerular Filt Rate > 60; Glucose Random 142 mg/dL (60-115); Potassium 3.7 mmol/L (3.3-5.1); Sodium 147 mmol/L (135-145)
[2024-01-22 08:21] LABS: PLT ABN DIST 1; Platelet Count 54 X10*3/uL (160-400)
[2024-01-22 08:30] LABS: HIV AB/AG Nonreactive (Nonreactive); HIV Num 1 0.05 S/CO (0.00-0.99)
[2024-01-22] MEDS: Cholecalciferol (Vitamin D3) 25 MCG TABLET PO (08:34)
[2024-01-22] MEDS: cloZAPine 25 MG TABLET 50 MG PO ×2 (08:34→20:06)
[2024-01-22] MEDS: QUEtiapine Fumarate 25 MG TABLET PO ×2 (08:34→20:06)
[2024-01-22] MEDS: Docusate Sodium 100 MG CAPSULE PO ×2 (08:34→20:05)
[2024-01-22 08:37] LABS: HBS Num1 101.07 mIU/mL (0-7.99); HBc Num1 4.76 S/CO (0.00-0.79); HBsAGNum1 3.73 S/CO (0.00-0.99); ~HepC Num1 0.11 S/CO (0.00-0.79); ~Hepatitis A Antibody IgM Nonreactive (Nonreactive); ~Hepatitis B Surface Antibody REACTIVE (Nonreactive); ~Hepatitis C Antibody Nonreactive (Nonreactive)
--- NOTE | 2024-01-22 08:37 | HE.PHANOTE ---
RE: shira Jean held the PM dose for 01/20; trough came back at 16.0 mg/L. Resumed dose on 01/21 at 1000mg Q12H with predicted trough of 16, AUC of 493. Next level to be drawn 01/22 @0700
[2024-01-22] MEDS: 0.9 % Sodium Chloride Flush 3 ML SYRINGE IVFLUSH ×2 (08:39→20:07)
[2024-01-22] MEDS: vancomycin HCL 1,000 MG in 0.9 % Sodium Chloride 250 ML 270 MG IV ×2 (08:39→20:06)
[2024-01-22 09:29] LABS: MRSA Nasal PCR NEGATIVE (Negative); SA Nasal PCR POSITIVE (Negative)
[2024-01-22] MEDS: Dextrose 5 % 1,000 ML 50 ML IVCONT (09:47)
[2024-01-22 11:05] LABS: Glucose, Whole Blood 185 mg/dL (60-115)
--- NOTE | 2024-01-22 11:46 | HO.WOUND ---
Wound Consult: Initial 59yr old?Male admitted to [facility] on with recent admission to Behavioral Health Unit - See progress notes and H&P for detailed history.? Wound consult placed for Left buttock wound.? Patient agreeable to assessment and photo documentation.? Left Buttock Etiology: Abrasion Not pressure or moisture related injury Measurements: see charting for detailed measurement Wound Bed: dry resurfacing wound bed - purple red maroon pigmentation blanchable throughout Drainage / Odor: None Edges: ? attached Ann wound: ?red pink flat rash noted - pt denies symptoms to rash - no crusting not raised No Induration, Fluctuance or Warmth noted Pain: denies Goals of Treatment: ? Foam to allow for continued autolytic healing. Recommendations: 1. Turn and Reposition every 2 hours and as needed for patient comfort.? Use pillows or wedges to support off loading positions. 2. Off Load all bony prominences with use of pillows and heel boots if needed.? Apply Preventative foams where needed. ? 3. Monitor for incontinence and moisture control, use barrier creams when needed for prevention and treatment. 4. Provide adequate and supplemental nutrition.? 5. Order or Continue low air loss mattress. 6. When applicable maintain blood glucose levels per Providers order. 7. Left Buttock - Cleanse with Ph balanced wipes, pat dry. Apply Foam dressing - peel back and assess Q shift and change every 3 days and PRN. Re-consult wound care Nurse for wound deterioration or wound changes.
[2024-01-22] MEDS: Insulin Lispro 100 UNIT/ML 3 ML VIAL SUBCUT ×2 (12:15→20:07)
[2024-01-22] MEDS: Metoprolol Tartrate 25 MG TABLET PO ×3 (12:15→20:05)
--- NOTE | 2024-01-22 13:13 | MHC.CM.PN ---
Pt has not been medically cleared for DC. DC plan is to be determined. Pt. came from psych unit and plan may be to return there. CM received a call from Rebecca the associate program manager of the group that provides support to pt. in community from [facility], . She said that pt can return to his apt. when stable, both medically and psychiatrically. CM will follow and assist with DC plan.
--- NOTE | 2024-01-22 14:07 | HO.PM.IMPN ---
Subjective Subjective Date of Service: 01/22/24 Interval History: No acute issues overnight. Review of Systems no fevers or chills mild hypernatremia Physical Exam Vital Signs: Vital Signs: Last Vital Signs Temp 98.2 F 01/22/24 10:57 Pulse 79 01/22/24 10:57 Resp 20 01/22/24 10:57 BP 158/93 H 01/22/24 10:57 Pulse Ox 96 01/22/24 10:57 O2 Del Method Room Air 01/22/24 10:57 O2 Flow Rate 1 01/21/24 07:28 BMI result Body Mass Index 36.1 Appearance: Alert.? Oriented X3.?flat effect cvs: rrr, [id number] , no murmur res: clear to auscultation ,no rhonchii or wheezing abd: no rebound or guarding ,nt, bs present. ext pulses present , no cyanosis . neuro: axo3 , nonfocal. Objective Data Active Medications Al Hydroxide/Mg Hydroxide (Magnesium Hydrox/Alum Hydrox 30 Ml Oral.Susp) 10 ml PO TID PRN PRN Reason: Indigestion Albuterol Sulfate (Albuterol Sulfate 90 Mcg 8 Gm Inhaler) 2 puff INHALE Q6H PRN PRN Reason: Shortness Of Breath Or Wheezing Aspirin (Aspirin Enteric Coated 81 Mg Tablet.) 81 mg PO DAILY@0800 COUNTS INCLUDE 234 BEDS AT THE [facility] Last Admin: 01/17/24 08:16 Dose: 81 mg Documented By: HOWIE Atorvastatin Calcium (Atorvastatin Calcium 20 Mg Tablet) 20 mg PO DAILY@1999 COUNTS INCLUDE 234 BEDS AT THE [facility] Last Admin: 01/21/24 21:18 Dose: 20 mg Documented By: DESMOND Clozapine (Clozapine 25 Mg Tablet) 50 mg PO BID COUNTS INCLUDE 234 BEDS AT THE [facility] Last Admin: 01/22/24 08:34 Dose: 50 mg Documented By: SANTANA Docusate Sodium (Docusate Sodium 100 Mg Capsule) 100 mg PO BID@0800,1999 COUNTS INCLUDE 234 BEDS AT THE [facility] Last Admin: 01/22/24 08:34 Dose: 100 mg Documented By: SANTANA Glucose (Glucose Gel 15 Gm Gel..Gram.) 15 gm PO Q15M PRN; Protocol PRN Reason: per Hypoglycemia Standing Ord. Cefepime HCl 2 gm/ Sodium (Chloride) 50 mls @ 100 mls/hr IV Q12H COUNTS INCLUDE 234 BEDS AT THE [facility] Last Infusion: 01/22/24 03:13 Dose: Infused Documented By: DESMOND Vancomycin HCl 1,000 mg/ (Sodium Chloride) 270 mls @ 270 mls/hr IV Q12H COUNTS INCLUDE 234 BEDS AT THE [facility] Last Infusion: 01/22/24 09:47 Dose: Infused Documented By: SANTANA Dextrose (D5w) 1,000 mls @ 50 mls/hr IVCONT .Q20H COUNTS INCLUDE 234 BEDS AT THE [facility] Last Admin: 01/22/24 09:47 Dose: 50 mls/hr Documented By: SANTANA Insulin Human Lispro (Insulin Lispro 100 Unit/Ml 3 Ml Vial) 0 unit SUBCUT QIDACHS COUNTS INCLUDE 234 BEDS AT THE [facility]; Protocol Last Admin: 01/22/24 12:15 Dose: 2 unit Documented By: SANTANA Lorazepam (Lorazepam 2 Mg/Ml Vial) 1 mg IVPUSH Q8H PRN PRN Reason: Agitation Last Admin: 01/22/24 05:01 Dose: 1 mg Documented By: DESMOND Lurasidone HCl (Lurasidone Hcl 40 Mg Tablet) 40 mg PO DAILY@1800 COUNTS INCLUDE 234 BEDS AT THE [facility] Last Admin: 01/21/24 17:37 Dose: 40 mg Documented By: ALEXANDRA-IALEEN Magnesium Hydroxide (Milk Of Magnesia 30 Ml Oral.Susp) 30 ml PO DAILY PRN PRN Reason: Constipation Metoprolol Tartrate (Metoprolol Tartrate 25 Mg Tablet) 25 mg PO QID COUNTS INCLUDE 234 BEDS AT THE [facility]; Protocol Last Admin: 01/22/24 12:15 Dose: 25 mg Documented By: SANTANA Nicotine (Nicotine 21 Mg Patch.Td24) 21 mg TRANSDERMA DAILY PRN PRN Reason: smoking cessation Nicotine Polacrilex (Nicotine Polacrilex 2 Mg Gum) 4 mg BUCCAL Q2H PRN PRN Reason: Nicotine Cravings Omeprazole (Omeprazole 20 Mg Capsule.) 20 mg PO BID@0630,1630 COUNTS INCLUDE 234 BEDS AT THE [facility] Last Admin: 01/22/24 05:49 Dose: 20 mg Documented By: DESMOND Ondansetron HCl (Ondansetron Hcl 4 Mg/2 Ml Vial) 4 mg IVPUSH Q8H PRN PRN Reason: Nausea and Vomiting Pharmacy Consult (Consult Rx Vancomycin Dosing) 1 each MISCELLANE DAILY PRN PRN Reason: Consult order Polyethylene Glycol (Polyethylene Glycol 3350 17 Gm Powd.Pack) 17 gm PO DAILY PRN PRN Reason: Constipation Polyethylene Glycol (Polyethylene Glycol 3350 17 Gm Powd.Pack) 17 gm PO DAILY COUNTS INCLUDE 234 BEDS AT THE [facility] Last Admin: 01/22/24 07:33 Dose: Not Given Documented By: SANTANA Non-Admin Reason: multiple loose stools Quetiapine Fumarate (Quetiapine Fumarate 25 Mg Tablet) 25 mg PO BID COUNTS INCLUDE 234 BEDS AT THE [facility] Last Admin: 01/22/24 08:34 Dose: 25 mg Documented By: SANTANA Senna/Docusate Sodium (Sennosides/Docusate Sodium Tablet) 2 tab PO DAILY COUNTS INCLUDE 234 BEDS AT THE [facility] Last Admin: 01/22/24 07:33 Dose: Not Given Documented By: SANTANA Non-Admin Reason: Multiple loose stools Sodium Chloride (0.9 % Sodium Chloride Flush 3 Ml Syringe) 3 ml IVFLUSH QSHIFT COUNTS INCLUDE 234 BEDS AT THE [facility] Last Admin: 01/22/24 08:39 Dose: 3 ml Documented By: SANTANA Tamsulosin HCl (Tamsulosin Hcl 0.4 Mg Capsule) 0.4 mg PO DAILY@1999 COUNTS INCLUDE 234 BEDS AT THE [facility] Last Admin: 01/21/24 21:18 Dose: 0.4 mg Documented By: DESMOND Trazodone HCl (Trazodone Hcl 50 Mg Tablet) 50 mg PO DAILY@1999 COUNTS INCLUDE 234 BEDS AT THE [facility] Last Admin: 01/16/24 23:16 Dose: 50 mg Documented By: SINDHU Trazodone HCl (Trazodone Hcl 50 Mg Tablet) 50 mg PO BEDTIME MRX1 PRN PRN Reason: Insomnia Last Admin: 01/16/24 22:30 Dose: 50 mg Documented By: SINDHU Comments: no relief after scheduled dose. Vitamin D (Cholecalciferol (Vitamin D3) 25 Mcg Tablet) 25 mcg PO DAILY@0800 COUNTS INCLUDE 234 BEDS AT THE [facility] Last Admin: 01/22/24 08:34 Dose: 25 mcg Documented By: SANTANA Labs 01/22/24 06:12 01/22/24 06:12 Labs: Laboratory Results - last 24 hr 01/21/24 01/21/24 01/21/24 06:14 15:26 17:27 MCV MCH MCHC RDW Plt Count MPV Absolute Nucleated RBC Nucleated RBC % (auto) ESR 65 H Anion Gap Estim Creat Clear Calc Estimated GFR POC Glucose 136 H Random Glucose Calcium Vitamin B12 394 Folate 5.7 Nasal Screen MRSA (PCR) Nasal S. aureus Screen Nasal MRSA/S.aureus Interp Random Vancomycin Rheumatoid Factor < 13.0 Hepatitis A IgM Ab Nonreactive Hep Bs Antigen Not Reportable Hep Bs Antibody REACTIVE Hepatitis C Ab (EIA) Nonreactive HIV 1&2 Ab/P24 Ag 4thGn 01/21/24 01/21/24 01/21/24 19:06 20:52 22:46 MCV MCH MCHC RDW Plt Count MPV Absolute Nucleated RBC Nucleated RBC % (auto) ESR Anion Gap Estim Creat Clear Calc Estimated GFR POC Glucose 161 H Random Glucose Calcium Vitamin B12 Folate Nasal Screen MRSA (PCR) NEGATIVE Nasal S. aureus Screen POSITIVE A Nasal MRSA/S.aureus Interp SEE NOTE Random Vancomycin 16.0 Rheumatoid Factor Hepatitis A IgM Ab Hep Bs Antigen Hep Bs Antibody Hepatitis C Ab (EIA) HIV 1&2 Ab/P24 Ag 4thGn 01/22/24 01/22/24 01/22/24 06:12 07:06 11:02 MCV 85.8 MCH 27.3 MCHC 31.8 RDW 14.6 Plt Count 54 L MPV Not Reportable Absolute Nucleated RBC 0.000 Nucleated RBC % (auto) 0.0 ESR Anion Gap 12 Estim Creat Clear Calc 98.3 Estimated GFR > 60 POC Glucose 129 H 185 H Random Glucose 142 H Calcium 9.1 Vitamin B12 Folate Nasal Screen MRSA (PCR) Nasal S. aureus Screen Nasal MRSA/S.aureus Interp Random Vancomycin Rheumatoid Factor Hepatitis A IgM Ab Hep Bs Antigen Hep Bs Antibody Hepatitis C Ab (EIA) HIV 1&2 Ab/P24 Ag 4thGn Nonreactive Microbiology Microbiology Results: Microbiology 01/17/24 16:06 Gram Stain - Final Cerebrospinal Fluid CSF Examination - Final Fluid Description - Final CSF Culture - Final No growth after 3 days. Assessment and Plan (1) Acute metabolic encephalopathy: Status: Acute (2) Schizoaffective disorder: Status: Acute Plan 59yo M with DM2, HTN, HOCM, HLD, COPD, JUDY, constipation, schizoaffective disorder recent admission here for SBO managed nonoperatively; transferred to Psychiatry for clozapine titration...[employer] called 01/15/24 for AMS, tachycardia, tachypnea; AMS resolved. Found to have mildly elevated troponins, JUHI, elevated CRP; became febrile , altered, agitated, tremulous on 01/17/24. Concern for central anticholnergic toxicity from lurasidone + clozapine, vs [employer] infection. Transferred to ICU.Improved and stepped down to IMC 01/18/24 Fever, acute toxic-metabolic encephalopathy...resolved -Clozaril up titration as per psych -follow clinically -LP/Cultures negative -prelim urine culture 01/16-ecoli senstive to ceftriaxone. vancomycin day5 /ceftriaxone day1. vanco trough :16 id eval. hypernatremia :mild possible sec to low po intake sodium 147 encouraged for po intake nad added d5w -moniter sodium levels closely Acute hypoxic resp failure due to multifocal PNA - vancomycin day5 ,added ceftrixaone nasal mrsa neg ,Sa positive. -wean O2 as tolerated pancytopenia:? unclear etiology ? clozapine blood cultures neg @48 hrs csf-fluid cultures negative no gross bleeding or brusing iD and psych following, will d/w hematology JUHI - resolved with volume repletion -follow renals/divalents CAD/HOCM -stable and well compensated -continue ASA, atorvastatin, metoprolol DM2 -acceptable control on current therapies -lispro correctional scale -adjust as indicated Schizoaffective disorder -appreciate Psychiatry input -meds at their direction Heparin Full code Patient requires ongoing hospitalization for:multifocal PNA-need IV antibiotics pending cultures; high risk for return of metabolic encephalopathy if DC before cultures identified Quality Stroke Does the patient have a stroke diagnosis?: No VTE Prior VTE?: No VTE Risk Level:: Medical - moderate - high VTE Device Contraindication: Treatment Not Indicated VTE Drug Contraindication: N/A - Med Ordered
[2024-01-22 14:37] LABS: HBc Num2 4.65 S/CO
[2024-01-22 14:38] LABS: HBc Num3 4.68 S/CO; HBsAGNum2 Nonreactive; HBsAGNum3 Nonreactive; Hepatitis B Core Antibody Reactive (Nonreactive); Hepatitis B Surface Antigen NEGATIVE (Negative)
[2024-01-22 16:13] LABS: Glucose, Whole Blood 112 mg/dL (60-115)
[2024-01-22] MEDS: cefTRIAXone sodium 1 GM in 0.9 % Sodium Chloride 50 ML IV (16:29)
[2024-01-22 16:40] LABS: Sodium 146 mmol/L (135-145)
[2024-01-22] MEDS: Lurasidone HCl 40 MG TABLET PO (17:02)
[2024-01-22 19:56] LABS: Glucose, Whole Blood 153 mg/dL (60-115)
[2024-01-22] MEDS: Tamsulosin HCL 0.4 MG CAPSULE PO (20:05)
[2024-01-22] MEDS: Atorvastatin Calcium 20 MG TABLET PO (20:06)
[2024-01-22 20:33] LABS: Sodium 144 mmol/L (135-145)
--- NOTE | 2024-01-23 00:15 | P.CNID_ITS ---
History of Present Illness Data of Consult Service Date: 01/21/24 Requesting physician: Raina Jean Primary Care Provider: Regan Hogue MD HPI Reason for consult: aspiration pneumonia He presents with psychological concerns on Clozaril. [employer] was called on 01/14 due to mental status changes. He has LP shows 3 WBC,unremarkable. Review of Systems 2 Review of Systems: Yes Unobtainable due to mental status PMFSH Past Medical History Medical History Schizoaffective disorder Diabetes mellitus HOCM (hypertrophic obstructive cardiomyopathy) Congestive heart failure COVID-19 Thought disorder Nocturnal hypoxemia Constipation COPD (chronic obstructive pulmonary disease) JUDY (obstructive sleep apnea) Smoker BPH (benign prostatic hyperplasia) Diabetes mellitus Obesity (BMI 30-39.9) Pure hypercholesterolemia Prolonged QT interval Essential hypertension Aggression Hypertension Coronary artery disease CHF (congestive heart failure) Cardiac arrhythmia Myocardial infarction Family History Family History Father Medical history unknown Mother Medical history unknown Sister Alive and well Family history: reviewed and not pertinent Surgical History Surgical History History of ankle surgery History of intestinal surgery History of transurethral resection of prostate Social History Social History Household Members: Other Household Members Other:: [facility] Housing: House Housing Other:: gr. home Do you presently have visiting nurse or other home services: No Alcohol intake: never Comment: 1:1 sitter Patient Tobacco Use Status: Former Tobacco user Quit Date: Pt is unsure if ready to quit Tobacco use type: Cigarette Cigarette Packs Per Day: 0.5 Years Smoked: many e-Cigarette/Vaping Use: Never Used Substance Use Type: Unknown Advance Directives Date on File: 01/14/24 service: No Current occupational status: disabled Sexual orientation: Straight/Heterosexual Cognitive needs: Yes Hearing needs: No Vision needs: Yes Meds Allergies Allergy/AdvReac Type Severity Reaction Status Date / Time lithium [[place]] Allergy Severe Toxicity Verified 01/10/24 05:05 thiothixene Allergy Severe Swelling Verified 01/10/24 05:05 benztropine Allergy Unknown benztropine Verified 12/30/23 15:59 mesylate- unknown gabapentin [From NEURONTIN] Allergy Unknown Unknown Verified 01/10/24 05:05 fluphenazine [From Prolixin] Allergy Unknown Verified 01/10/24 05:04 barium sulfate AdvReac Intermediate Nausea and Verified 01/10/24 05:05 [BARIUM SULFATE] Vomiting haloperidol AdvReac Intermediate Muscle Verified 01/10/24 05:05 tension in legs diphenhydramine AdvReac Unknown urinary Verified 01/10/24 05:05 [From Benadryl] retention Active Medications: Current Medications Al Hydroxide/Mg Hydroxide (Magnesium Hydrox/Alum Hydrox 30 Ml Oral.Susp) 10 ml PO TID PRN PRN Reason: Indigestion Albuterol Sulfate (Albuterol Sulfate 90 Mcg 8 Gm Inhaler) 2 puff INHALE Q6H PRN PRN Reason: Shortness Of Breath Or Wheezing Aspirin (Aspirin Enteric Coated 81 Mg Tablet.Dr) 81 mg PO DAILY@0800 [facility] Last Admin: 01/17/24 08:16 Dose: 81 mg Atorvastatin Calcium (Atorvastatin Calcium 20 Mg Tablet) 20 mg PO DAILY@1999 [facility] Last Admin: 01/22/24 20:06 Dose: 20 mg Clozapine (Clozapine 25 Mg Tablet) 50 mg PO BID [facility] Last Admin: 01/22/24 20:06 Dose: 50 mg Docusate Sodium (Docusate Sodium 100 Mg Capsule) 100 mg PO BID@0800,1999 [facility] Last Admin: 01/22/24 20:05 Dose: 100 mg Glucose (Glucose Gel 15 Gm Gel..Gram.) 15 gm PO Q15M PRN; Protocol PRN Reason: per Hypoglycemia Standing Ord. Vancomycin HCl 1,000 mg/ (Sodium Chloride) 270 mls @ 270 mls/hr IV Q12H [facility] Last Infusion: 01/22/24 21:46 Dose: Infused Dextrose (D5w) 1,000 mls @ 50 mls/hr IVCONT .Q20H [facility] Last Admin: 01/22/24 09:47 Dose: 50 mls/hr Ceftriaxone Sodium 1 gm/ (Sodium Chloride) 50 mls @ 100 mls/hr IV Q24H [facility] Last Infusion: 01/22/24 17:01 Dose: Infused Insulin Human Lispro (Insulin Lispro 100 Unit/Ml 3 Ml Vial) 0 unit SUBCUT QIDACHS [facility]; Protocol Last Admin: 01/22/24 20:07 Dose: 2 unit Lorazepam (Lorazepam 2 Mg/Ml Vial) 1 mg IVPUSH Q8H PRN PRN Reason: Agitation Last Admin: 01/22/24 05:01 Dose: 1 mg Lurasidone HCl (Lurasidone Hcl 40 Mg Tablet) 40 mg PO DAILY@1800 [facility] Last Admin: 01/22/24 17:02 Dose: 40 mg Magnesium Hydroxide (Milk Of Magnesia 30 Ml Oral.Susp) 30 ml PO DAILY PRN PRN Reason: Constipation Metoprolol Tartrate (Metoprolol Tartrate 25 Mg Tablet) 25 mg PO QID [facility]; Protocol Last Admin: 01/22/24 20:05 Dose: 25 mg Nicotine (Nicotine 21 Mg Patch.Td24) 21 mg TRANSDERMA DAILY PRN PRN Reason: smoking cessation Nicotine Polacrilex (Nicotine Polacrilex 2 Mg Gum) 4 mg BUCCAL Q2H PRN PRN Reason: Nicotine Cravings Omeprazole (Omeprazole 20 Mg Capsule.Dr) 20 mg PO BID@0630,1630 [facility] Last Admin: 01/22/24 16:28 Dose: 20 mg Ondansetron HCl (Ondansetron Hcl 4 Mg/2 Ml Vial) 4 mg IVPUSH Q8H PRN PRN Reason: Nausea and Vomiting Pharmacy Consult (Consult Rx Vancomycin Dosing) 1 each MISCELLANE DAILY PRN PRN Reason: Consult order Polyethylene Glycol (Polyethylene Glycol 3350 17 Gm Powd.Pack) 17 gm PO DAILY PRN PRN Reason: Constipation Polyethylene Glycol (Polyethylene Glycol 3350 17 Gm Powd.Pack) 17 gm PO DAILY [facility] Last Admin: 01/22/24 07:33 Dose: Not Given Quetiapine Fumarate (Quetiapine Fumarate 25 Mg Tablet) 25 mg PO BID [facility] Last Admin: 01/22/24 20:06 Dose: 25 mg Senna/Docusate Sodium (Sennosides/Docusate Sodium Tablet) 2 tab PO DAILY [facility] Last Admin: 01/22/24 07:33 Dose: Not Given Sodium Chloride (0.9 % Sodium Chloride Flush 3 Ml Syringe) 3 ml IVFLUSH QSHIFT [facility] Last Admin: 01/22/24 20:07 Dose: 3 ml Tamsulosin HCl (Tamsulosin Hcl 0.4 Mg Capsule) 0.4 mg PO DAILY@2000 [facility] Last Admin: 01/22/24 20:05 Dose: 0.4 mg Trazodone HCl (Trazodone Hcl 50 Mg Tablet) 50 mg PO DAILY@1999 [facility] Last Admin: 01/16/24 23:16 Dose: 50 mg Trazodone HCl (Trazodone Hcl 50 Mg Tablet) 50 mg PO BEDTIME MRX1 PRN PRN Reason: Insomnia Last Admin: 01/16/24 22:30 Dose: 50 mg Vitamin D (Cholecalciferol (Vitamin D3) 25 Mcg Tablet) 25 mcg PO DAILY@08 [facility] Last Admin: 01/22/24 08:34 Dose: 25 mcg Home Medications ?Medication ?Instructions ?Recorded ?Confirmed ?Last Taken ?Type docusate sodium 100 mg capsule 1 cap PO BID@08,199908/18/22 01/15/24 01/15/24 History atorvastatin 20 mg tablet 20 mg PO DAILY@199904/20/23 01/15/24 12/29/23 History lorazepam 0.5 mg tablet 0.5 mg PO DAILY@199904/20/23 01/15/24 12/29/23 History lorazepam 1 mg tablet 1 mg PO BID@08,159904/20/23 01/15/24 01/15/24 History albuterol sulfate 90 mcg/actuation 2 puff inhalation Q6H PRN 10/10/23 01/15/24 Unknown History aerosol inhaler Shortness Of Breath Or Wheezing aspirin 81 mg tablet,delayed 81 mg PO DAILY@0810/10/23 01/15/24 01/15/24 History release losartan 25 mg tablet 25 mg PO DAILY@79911/03/23 01/15/24 01/15/24 History lurasidone 60 mg tablet 60 mg PO DAILY@79911/03/23 01/15/24 01/15/24 History trazodone 50 mg tablet 50 mg PO DAILY@199911/03/23 01/15/24 12/29/23 History aluminum-mag hydroxide-simethicone 10 ml PO TID PRN Indigestion 12/31/23 01/15/24 Unknown History 200 mg-200 mg-20 mg/5 mL oral susp furosemide 20 mg tablet 20 mg PO DAILY@79912/31/23 01/15/24 01/15/24 History metoprolol succinate 50 mg 50 mg PO BID@0800,199912/31/23 01/15/24 01/15/24 History tablet,extended release 24 hr polyethylene glycol 3350 17 17 g PO DAILY PRN Constipation 12/31/23 01/15/24 Unknown History gram/dose oral powder (Miralax) acetaminophen 650 mg 650 mg PO Q6H PRN Pain, Mild 01/15/24 01/15/24 Unknown History tablet,extended release nicotine (polacrilex) 4 mg gum 4 mg buccal Q2H PRN Smoking 01/15/24 01/15/24 Unknown History Cessation nicotine 21 mg/24 hr daily 1 patch transdermal DAILY PRN 01/15/24 01/15/24 Unknown History transdermal patch Smoking Cessation olanzapine 5 mg tablet 5 mg PO TID PRN Agitation 01/15/24 01/15/24 Unknown History tamsulosin 0.4 mg capsule 0.4 mg PO DAILY 01/15/24 01/15/24 Unknown History trazodone 50 mg tablet 50 mg PO BEDTIME PRN Insomnia 01/15/24 01/15/24 Unknown History Physical Exam 2 Vital Signs: Vital Signs: Last Vital Signs Temp 97.0 F 01/22/24 23:34 Pulse 76 01/22/24 23:34 Resp 20 01/22/24 23:34 BP 166/94 H 01/22/24 23:34 Pulse Ox 95 01/22/24 23:34 O2 Del Method Room Air 01/22/24 23:34 O2 Flow Rate 1 01/21/24 07:28 BMI result Body Mass Index 36.1 Const: General: cooperative HEENT: Head: Yes normal to inspection Face and sinus: Yes normal facial exam Mouth: Normal oral and palatal mucosa present Teeth and gingiva: d entition normal Eyes: General: appearance normal, both eyes and all related structures P upils: Equal, round and reactive pupils present Resp: Effort & Inspection: normal respiratory effort Cardio: Rate: regular rate Rhythm: regular rhythm GI: Palpation (GI): Soft to palpation and nontender : General: Yes no CVA tenderness Back/Spine/Pelvis: Back: no CVA tenderness Skin: General skin exam: no rashes or lesions noted Neuro: General: moves all extremities Cranial nerves: Yes Equal, round and reactive pupils present Extrem: General: Yes normal to inspection Psych: Appearance: grossly normal Results Labs 01/22/24 06:12 01/22/24 20:10 Labs: Short CBC 01/22/24 Range/Units 06:12 WBC 5.7 (4.8-10.8) X10*3/uL Hgb 9.8 L (14.0-18.0) g/dl Hct 30.8 L (42.0-52.0) % Plt Count 54 L (160-400) X10*3/uL BMP 01/22/24 01/22/24 01/22/24 06:12 16:02 20:10 Sodium 147 H 146 H 144 Potassium 3.7 Chloride 112 H Carbon Dioxide 27 BUN 14 Creatinine 0.95 Calcium 9.1 Microbiology Microbiology Results: Microbiology 01/17/24 13:53 Blood - Venous Blood Culture - Final No growth after 5 days. 01/17/24 13:53 Blood - Venous Blood Culture - Final No growth after 5 days. 01/17/24 16:06 Cerebrospinal Fluid Gram Stain - Final 01/17/24 16:06 Cerebrospinal Fluid CSF Examination - Final 01/17/24 16:06 Cerebrospinal Fluid Fluid Description - Final 01/17/24 16:06 Cerebrospinal Fluid CSF Culture - Final No growth after 3 days. 01/17/24 14:26 Urine Catheterized - Finn Catheter Urine Culture - Final Escherichia coli Assessment and Plan (1) Delirium: Status: Acute (2) Schizoaffective disorder: Qualifiers: Schizoaffective disorder type: bipolar Qualified Code(s): F25.0 - Schizoaffective disorder, bipolar type Status: Acute (3) Fever: Status: Acute (4) Acute respiratory failure with hypoxia: Status: Acute Plan There is likely aspiration pneumonia There are no signs meningitis. Suggest Cefepime and Vancomycin and if rash concern change to Merem and Vancomycin 5-7 days.
[2024-01-23 03:37] VITALS: BP 168/80; PULSE 85; RESP 20; TEMP 36.9; O2SAT 92
[2024-01-23] MEDS: Omeprazole 20 MG CAPSULE.DR PO (05:36)
[2024-01-23] MEDS: Dextrose 5 % 1,000 ML 50 ML IVCONT (05:36)
[2024-01-23 05:55] VITALS: BMI 35.8
[2024-01-23 06:49] VITALS: BP 183/92; PULSE 77; RESP 18; TEMP 36.8; O2SAT 95
[2024-01-23 07:07] LABS: MANUAL DIFF FLAG NO
[2024-01-23 07:17] LABS: Basophils Percent Auto 0.6 % (0-2); Eosinophils Absolute Auto 0.2 X10*3/uL (0.0-0.4); Eosinophils Percent Auto 2.4 % (0-4); Hematocrit 32.5 % (42.0-52.0); Hemoglobin 10.3 g/dl (14.0-18.0); Imm Gran Abs Auto 0.15 X10*3/uL (0.00-0.03); Imm Gran Pct Auto 2.3 % (0.0-0.4); Lymphocytes Absolute Auto 1.1 X10*3/uL (1.2-4.9); Lymphocytes Percent Auto 17.1 % (20-40); Mean Corpuscular HGB Conc 31.7 g/dl (31.0-36.0); Mean Corpuscular Hemoglobin 26.8 pg (27.0-33.0); Mean Corpuscular Volume 84.6 fL (80.0-98.0); Monocytes Absolute Auto 0.5 X10*3/uL (0.1-1.2); Monocytes Percent Auto 7.9 % (2-11); Neutrophils Absolute Auto 4.6 x10*3/uL (2.0-8.3); Neutrophils Percent Auto 69.7 % (45-73); Red Blood Count 3.84 X10*6/uL (4.60-5.80); White Blood Count 6.6 X10*3/uL (4.8-10.8)
[2024-01-23 07:19] LABS: Glucose, Whole Blood 137 mg/dL (60-115)
[2024-01-23 07:20] LABS: Platelet Count 71 X10*3/uL (160-400)
[2024-01-23 07:25] LABS: Vancomycin Random 18.7 mcg/mL (15-20)
[2024-01-23 07:28] LABS: Anion Gap 11 (12-20); Blood Urea Nitrogen 12 mg/dL (9-16); Calcium 9.3 mg/dL (8.4-10.2); Carbon Dioxide 28 mmol/L (22-29); Chloride 110 mmol/L (96-108); Creatinine Clr Calc Pharmacy 103.4; Estimated Glomerular Filt Rate > 60; Glucose Random 145 mg/dL (60-115); Potassium 3.7 mmol/L (3.3-5.1); Sodium 145 mmol/L (135-145)
[2024-01-23] MEDS: QUEtiapine Fumarate 25 MG TABLET PO (07:59)
[2024-01-23] MEDS: Cholecalciferol (Vitamin D3) 25 MCG TABLET PO (07:59)
[2024-01-23] MEDS: Metoprolol Tartrate 25 MG TABLET PO ×2 (08:00→13:10)
[2024-01-23] MEDS: vancomycin HCL 1,000 MG in 0.9 % Sodium Chloride 250 ML 270 MG IV (08:00)
[2024-01-23] MEDS: 0.9 % Sodium Chloride Flush 3 ML SYRINGE IVFLUSH (08:05)
[2024-01-23] MEDS: cloZAPine 25 MG TABLET 50 MG PO (08:05)
[2024-01-23 09:19] VITALS: BP 169/79
[2024-01-23 10:03] LABS: Hepatitis B Core Antibody IgM NON-REACTIVE (NON-REACTIVE)
--- NOTE | 2024-01-23 10:28 | MHC.CM.PN ---
Per ROUNDS discussion, Patient needs a Care Team Consult to assist with disposition (return to [address] VS home); CM will follow.
[2024-01-23 10:56] VITALS: BP 178/96; PULSE 64; RESP 18; TEMP 36.3; O2SAT 97
[2024-01-23 11:27] LABS: Glucose, Whole Blood 165 mg/dL (60-115)
[2024-01-23] MEDS: Insulin Lispro 100 UNIT/ML 3 ML VIAL SUBCUT (11:40)
--- NOTE | 2024-01-23 12:21 | HO.PM.IMPN ---
Subjective Subjective Date of Service: 01/23/24 Interval History: No acute issues overnight. Review of Systems no fevers or chills , hypernatremia seems resolved. Physical Exam Vital Signs: Vital Signs: Last Vital Signs Temp 97.4 F 01/23/24 10:56 Pulse 64 01/23/24 10:56 Resp 18 01/23/24 10:56 BP 178/96 H 01/23/24 10:56 Pulse Ox 97 01/23/24 10:56 O2 Del Method Room Air 01/23/24 10:56 O2 Flow Rate 1 01/21/24 07:28 BMI result Body Mass Index 35.8 Appearance: Alert.? Oriented X3.?flat effect cvs: rrr, [id number] , no murmur res: clear to auscultation ,no rhonchii or wheezing abd: no rebound or guarding ,nt, bs present. ext pulses present , no cyanosis . neuro: axo3 , nonfocal. Objective Data Active Medications Al Hydroxide/Mg Hydroxide (Magnesium Hydrox/Alum Hydrox 30 Ml Oral.Susp) 10 ml PO TID PRN PRN Reason: Indigestion Albuterol Sulfate (Albuterol Sulfate 90 Mcg 8 Gm Inhaler) 2 puff INHALE Q6H PRN PRN Reason: Shortness Of Breath Or Wheezing Amoxicillin/Clavulanate Potassium (Amoxicillin/Potassium Clav 875 Mg Tablet) 875 mg PO Q12H [facility] Aspirin (Aspirin Enteric Coated 81 Mg Tablet.) 81 mg PO DAILY@0800 [facility] Last Admin: 01/17/24 08:16 Dose: 81 mg Documented By: HOWIE Atorvastatin Calcium (Atorvastatin Calcium 20 Mg Tablet) 20 mg PO DAILY@1999 [facility] Last Admin: 01/22/24 20:06 Dose: 20 mg Documented By: NEISHA Clozapine (Clozapine 25 Mg Tablet) 50 mg PO BID [facility] Last Admin: 01/23/24 08:05 Dose: 50 mg Documented By: MARTIR Docusate Sodium (Docusate Sodium 100 Mg Capsule) 100 mg PO BID@0800,1999 [facility] Last Admin: 01/23/24 08:06 Dose: Not Given Documented By: MARTIR Non-Admin Reason: Patient Refused Glucose (Glucose Gel 15 Gm Gel..Gram.) 15 gm PO Q15M PRN; Protocol PRN Reason: per Hypoglycemia Standing Ord. Insulin Human Lispro (Insulin Lispro 100 Unit/Ml 3 Ml Vial) 0 unit SUBCUT QIDACHS [facility]; Protocol Last Admin: 01/23/24 11:40 Dose: 2 unit Documented By: MARTIR Lorazepam (Lorazepam 2 Mg/Ml Vial) 1 mg IVPUSH Q8H PRN PRN Reason: Agitation Last Admin: 01/22/24 05:01 Dose: 1 mg Documented By: DESMOND Lurasidone HCl (Lurasidone Hcl 40 Mg Tablet) 40 mg PO DAILY@1800 [facility] Last Admin: 01/22/24 17:02 Dose: 40 mg Documented By: MACARThor Magnesium Hydroxide (Milk Of Magnesia 30 Ml Oral.Susp) 30 ml PO DAILY PRN PRN Reason: Constipation Metoprolol Tartrate (Metoprolol Tartrate 25 Mg Tablet) 25 mg PO QID [facility]; Protocol Last Admin: 01/23/24 08:00 Dose: 25 mg Documented By: MARTIR Nicotine (Nicotine 21 Mg Patch.Td24) 21 mg TRANSDERMA DAILY PRN PRN Reason: smoking cessation Nicotine Polacrilex (Nicotine Polacrilex 2 Mg Gum) 4 mg BUCCAL Q2H PRN PRN Reason: Nicotine Cravings Omeprazole (Omeprazole 20 Mg Capsule.Dr) 20 mg PO BID@0630,1630 [facility] Last Admin: 01/23/24 05:36 Dose: 20 mg Documented By: NEISHA Ondansetron HCl (Ondansetron Hcl 4 Mg/2 Ml Vial) 4 mg IVPUSH Q8H PRN PRN Reason: Nausea and Vomiting Pharmacy Consult (Consult Rx Vancomycin Dosing) 1 each MISCELLANE DAILY PRN PRN Reason: Consult order Polyethylene Glycol (Polyethylene Glycol 3350 17 Gm Powd.Pack) 17 gm PO DAILY PRN PRN Reason: Constipation Polyethylene Glycol (Polyethylene Glycol 3350 17 Gm Powd.Pack) 17 gm PO DAILY [facility] Last Admin: 01/23/24 08:15 Dose: Not Given Documented By: MARTIR Non-Admin Reason: Patient Refused Quetiapine Fumarate (Quetiapine Fumarate 25 Mg Tablet) 25 mg PO BID [facility] Last Admin: 01/23/24 07:59 Dose: 25 mg Documented By: MARTIR Senna/Docusate Sodium (Sennosides/Docusate Sodium Tablet) 2 tab PO DAILY [facility] Last Admin: 01/23/24 08:06 Dose: Not Given Documented By: MARTIR Non-Admin Reason: Patient Refused Sodium Chloride (0.9 % Sodium Chloride Flush 3 Ml Syringe) 3 ml IVFLUSH QSHIFT [facility] Last Admin: 01/23/24 08:05 Dose: 3 ml Documented By: MARTIR Tamsulosin HCl (Tamsulosin Hcl 0.4 Mg Capsule) 0.4 mg PO DAILY@1999 [facility] Last Admin: 01/22/24 20:05 Dose: 0.4 mg Documented By: NEISHA Trazodone HCl (Trazodone Hcl 50 Mg Tablet) 50 mg PO DAILY@1999 [facility] Last Admin: 01/16/24 23:16 Dose: 50 mg Documented By: SINDHU Trazodone HCl (Trazodone Hcl 50 Mg Tablet) 50 mg PO BEDTIME MRX1 PRN PRN Reason: Insomnia Last Admin: 01/16/24 22:30 Dose: 50 mg Documented By: SINDHU Comments: no relief after scheduled dose. Vitamin D (Cholecalciferol (Vitamin D3) 25 Mcg Tablet) 25 mcg PO DAILY@0800 [facility] Last Admin: 01/23/24 07:59 Dose: 25 mcg Documented By: MARTIR Labs 01/23/24 06:57 01/23/24 06:57 Labs: Laboratory Results - last 24 hr 01/21/24 01/22/24 01/22/24 17:27 16:10 19:51 MCV MCH MCHC RDW Plt Count MPV Immature Gran % (Auto) Neut % (Auto) Lymph % (Auto) [place] % (Auto) Eos % (Auto) Baso % (Auto) Lymph # (Auto) [place] # (Auto) Eos # (Auto) Baso # (Auto) Abs Immat Gran (auto) Absolute Neuts (auto) Absolute Nucleated RBC Nucleated RBC % (auto) Anion Gap Estim Creat Clear Calc Estimated GFR POC Glucose 112 153 H Random Glucose Calcium Random Vancomycin Hep Bs Antigen (2) NEGATIVE Hep B Core Total Ab Reactive Hep B Core IgM Ab NON-REACTIVE 01/23/24 01/23/24 01/23/24 06:57 07:15 11:24 MCV 84.6 MCH 26.8 L MCHC 31.7 RDW 15.0 Plt Count 71 L D MPV Not Reportable Immature Gran % (Auto) 2.3 H Neut % (Auto) 69.7 Lymph % (Auto) 17.1 L [place] % (Auto) 7.9 Eos % (Auto) 2.4 Baso % (Auto) 0.6 Lymph # (Auto) 1.1 L [place] # (Auto) 0.5 Eos # (Auto) 0.2 Baso # (Auto) 0.0 Abs Immat Gran (auto) 0.15 H Absolute Neuts (auto) 4.6 Absolute Nucleated RBC 0.000 Nucleated RBC % (auto) 0.0 Anion Gap 11 L Estim Creat Clear Calc 103.4 Estimated GFR > 60 POC Glucose 137 H 165 H Random Glucose 145 H Calcium 9.3 Random Vancomycin 18.7 Hep Bs Antigen (2) Hep B Core Total Ab Hep B Core IgM Ab Microbiology Microbiology Results: Microbiology 01/17/24 13:53 Blood Culture - Final Blood - Venous No growth after 5 days. 01/17/24 13:53 Blood Culture - Final Blood - Venous No growth after 5 days. 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 Found to have mildly elevated troponins, JUHI, elevated CRP; became febrile , altered, agitated, tremulous on 01/17/24. 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 Transferred to ICU.Improved and stepped down to IMC 01/18/24 Fever, acute toxic-metabolic encephalopathy...resolved -Clozaril up titration as per psych -follow clinically -LP/Cultures negative -prelim urine culture 01/16-ecoli senstive to ceftriaxone. vancomycin day5 /ceftriaxone day1. vanco trough :16 id eval. hypernatremia :mild possible sec to low po intake sodium 147 encouraged for po intake nad added d5w -moniter sodium levels closely Acute hypoxic resp failure due to multifocal PNA - vancomycin day5 ,added ceftrixaone nasal mrsa neg ,Sa positive. -wean O2 as tolerated pancytopenia:? unclear etiology ? clozapine blood cultures neg @48 hrs csf-fluid cultures negative no gross bleeding or brusing iD and psych following, will d/w hematology JUHI - resolved with volume repletion -follow renals/divalents CAD/HOCM -stable and well compensated -continue ASA, atorvastatin, metoprolol DM2 -acceptable control on current therapies -lispro correctional scale -adjust as indicated Schizoaffective disorder -appreciate Psychiatry input -meds at their direction Heparin Full code Patient requires ongoing hospitalization for:multifocal PNA-need IV antibiotics pending cultures; high risk for return of metabolic encephalopathy if DC before cultures identified Quality Stroke Does the patient have a stroke diagnosis?: No VTE Prior VTE?: No VTE Risk Level:: Medical - moderate - high VTE Device Contraindication: Treatment Not Indicated VTE Drug Contraindication: N/A - Med Ordered
[2024-01-23] MEDS: Amoxicillin/Potassium Clav 875 MG TABLET PO (13:10)
--- NOTE | 2024-01-23 13:32 | P.DS_ITS ---
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 Tn-I 50->100. hx hoCm 01/17/24 11:36 Consult to Neurology Routine Consulting Provider: [facility] Reason for consultation: Pt from psychiatry with AMS 01/17/24 11:41 Consult to Psychiatry Stat Consulting Provider: Psych Covering Reason for consultation: tremulous, delirious ?med effect Has provider been notified: Yes 01/19/24 11:55 Consult to Wound Care Routine Reason for consultation: wound L buttock 01/21/24 09:21 Consult to Infectious Diseases Routine Consulting Provider[place] [facility] [place] Reason for consultation: fuo Has provider been notified: No 01/21/24 11:35 Consult to Care Team Routine Comment: Reason for consultation: Psych placement 01/21/24 15:39 Consult to Hematology / Oncology Routine Consulting Provider[place] [facility] [place] Reason for consultation: pancytopenia Attending physician on discharge: Raina Jean Discharging clinician: Raina Jean DS: Diagnosis Discharge Diagnosis (1) Acute metabolic encephalopathy: Status: Acute (2) Schizoaffective disorder: Status: Acute DS: Summary Hospital Course Hospital Course: 59-year-old male with history of insulin-dependent type 2 diabetes, hypertension, HOCM, hyperlipidemia, COPD, JUDY, constipation, and schizoaffective disorder admitted to Psychiatry with rapid response called due to patient seeming confused from baseline oriented x2 only. Pt noted to be diaphoretic and tachypneic. He was recently discharged from med surg due to sbo and transferred to psychiatry for further management on 01/08. Etiology of patient's change in clinical condition is unclear. Upon rapid response, CBC was ordered showing stable normocytic anemia, no leukocytosis. VBG reassuring with pH 7.47, pCO2 31, bicarb 23. Chemistry studies are significant for an JUHI with creatinine 1.67, baseline around 1.1. BUN 26. Electrolyte levels normal. Troponin 57.5, BNP 308. CRP 15.67. TSH 0.19, free T4 pending. Clozaril level pending. COVID-19, influenza, RSV pending. KUB, head CT, CXR ordered and pending. EKG showed sinus tachycardia, rate 117, possible LVH with repolarization. No other ST/T-wave abnormality. No evidence of acute ischemic changes. Vital signs significant for tachycardia up to 132, tachypnea 246, no hypoxia or hypotension. Patient is afebrile. He will be transferred to med/tele for further evaluation of ams, and suddent onset tachycardia and tachypnea. 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 Found to have mildly elevated troponins, JUHI, elevated CRP; became febrile , altered, agitated, tremulous on 01/17/24. Concern for central anticholnergic toxicity from lurasidone + clozapine, vs MEDIA COORDINATOR infection. Transferred to ICU.Improved and stepped down to IMC 01/18/24. Fever, acute toxic-metabolic encephalopathy...resolved LP/Cultures negative, blood culture negative, urine culture-ecoli senstive to c eftriaxone/ampiclilin Hyponatremia and JUHI resolved. Mental status improved to the baseline. Patient received-vancomycin day5, cefepime for 4 days, ceftriaxone day1. Patient seen by infectious disease-CSF cultures are negative, recommended to check his antibiotic to p.o. Augmentin 875 mg p.o. b.i.d. for 7 days to cover aspiration pneumonia and question of UTI. In additionClozaril titration as per psych-currently on 50 mg bid , lurasidone 40 mg ,seroquel 25 mg po bid ,ativan 1 mg q8hr prn. Acute hypoxic resp failure due to multifocal PNA Patient was treated with IV antibiotic as above, hypoxia resolved patient was switched to p.o. antibiotics as above. pancytopenia: Seen by Hematology: HIV screen nonreactive hepatitis A,C non recative ,hepatitis B surface antibody reactive . B12 and folate normal Patient also had acute pneumonia/possible UTI and was on also on vanco and cefepime. Pancytopenia improving, possibly transient, continue to monitor CBC if worsen then may need further workup. Discussed with the Hematology. JUHI- resolved with volume repletion follow bmp . CAD/HOCM-stable and well compensated. continue ASA, atorvastatin, metoprolol plan: moniter cbc while on clozapine,consider hematology follow up if needed . further dosing adjustement for clozapine and other psych meds as per psych. complete augmentin 875 mg po bid for 7 days. Assessment and plan coordination time spent 40 minute. Above management discussed with psych in detail Dr. Philip. Time Attestation Total time managing care of this patient today: 40 mintues. Discharge Coordination Time (in mins): 40 min Quality: Safe Use of Opioids Does Pt have an Active Cancer Diagnosis on the Problem List?: No Quality: Stroke Does the patient have a stroke diagnosis?: No Physical Exam Vital Signs: Vital Signs: Last Vital Signs Temp 97.4 F 01/23/24 10:56 Pulse 64 01/23/24 10:56 Resp 18 01/23/24 10:56 BP 178/96 H 01/23/24 10:56 Pulse Ox 97 01/23/24 10:56 O2 Del Method Room Air 01/23/24 10:56 O2 Flow Rate 1 01/21/24 07:28 BMI result Body Mass Index 35.8 Appearance: Alert.? Oriented X3.?flat effect cvs: rrr, [id number] , no murmur res: clear to auscultation ,no rhonchii or wheezing abd: no rebound or guarding ,nt, bs present. ext pulses present , no cyanosis . neuro: axo3 , nonfocal. DS: Data Data Completed and Pending Completed studies during hospitalization [Text1]: Procedures Assistance with Respiratory Ventilation, Less than 24 Consecutive Hours, Continuous Positive Airway Pressure (11/03/23) Introduction of Remdesivir Anti-infective into Peripheral Vein, Percutaneous Approach, [employer] 5 (09/25/21) Labs on day of discharge: Laboratory Results - last 24 hr 01/21/24 01/22/24 01/22/24 17:27 16:02 16:10 WBC RBC Hgb Hct MCV MCH MCHC RDW Plt Count MPV Immature Gran % (Auto) Neut % (Auto) Lymph % (Auto) [place] % (Auto) Eos % (Auto) Baso % (Auto) Lymph # (Auto) [place] # (Auto) Eos # (Auto) Baso # (Auto) Abs Immat Gran (auto) Absolute Neuts (auto) Absolute Nucleated RBC Nucleated RBC % (auto) Sodium 146 H Potassium Chloride Carbon Dioxide Anion Gap BUN Creatinine Estim Creat Clear Calc Estimated GFR POC Glucose 112 Random Glucose Calcium Random Vancomycin Hep Bs Antigen (2) NEGATIVE Hep B Core Total Ab Reactive Hep B Core IgM Ab NON-REACTIVE 01/22/24 01/22/24 01/23/24 19:51 20:10 06:57 WBC 6.6 RBC 3.84 L Hgb 10.3 L Hct 32.5 L MCV 84.6 MCH 26.8 L MCHC 31.7 RDW 15.0 Plt Count 71 L D MPV Not Reportable Immature Gran % (Auto) 2.3 H Neut % (Auto) 69.7 Lymph % (Auto) 17.1 L [place] % (Auto) 7.9 Eos % (Auto) 2.4 Baso % (Auto) 0.6 Lymph # (Auto) 1.1 L [place] # (Auto) 0.5 Eos # (Auto) 0.2 Baso # (Auto) 0.0 Abs Immat Gran (auto) 0.15 H Absolute Neuts (auto) 4.6 Absolute Nucleated RBC 0.000 Nucleated RBC % (auto) 0.0 Sodium 144 145 Potassium 3.7 Chloride 110 H Carbon Dioxide 28 Anion Gap 11 L BUN 12 Creatinine 0.90 Estim Creat Clear Calc 103.4 Estimated GFR > 60 POC Glucose 153 H Random Glucose 145 H Calcium 9.3 Random Vancomycin 18.7 Hep Bs Antigen (2) Hep B Core Total Ab Hep B Core IgM Ab 01/23/24 01/23/24 07:15 11:24 WBC RBC Hgb Hct MCV MCH MCHC RDW Plt Count MPV Immature Gran % (Auto) Neut % (Auto) Lymph % (Auto) [place] % (Auto) Eos % (Auto) Baso % (Auto) Lymph # (Auto) [place] # (Auto) Eos # (Auto) Baso # (Auto) Abs Immat Gran (auto) Absolute Neuts (auto) Absolute Nucleated RBC Nucleated RBC % (auto) Sodium Potassium Chloride Carbon Dioxide Anion Gap BUN Creatinine Estim Creat Clear Calc Estimated GFR POC Glucose 137 H 165 H Random Glucose Calcium Random Vancomycin Hep Bs Antigen (2) Hep B Core Total Ab Hep B Core IgM Ab Imaging Chest x-ray: Radiologist's impression: ITS Impressions Pulmonary Perfusion Imaging 01/15/24 15:45 IMPRESSION: Very low probability of pulmonary embolism. Head CT 01/15/24 16:14 IMPRESSION: No acute intracranial pathology. Abdomen/Pelvis CT 01/16/24 11:52 IMPRESSION: 1. No evidence of bowel obstruction, resolution of small bowel obstruction seen on the previous study with resolution of portal venous gas 2. Mild splenomegaly. 3. Fat-containing ventral hernia. Fleischner guidelines were followed. Chest X-Ray 01/17/24 04:58 IMPRESSION: No acute cardiopulmonary process. No significant interval change. Abdomen/Pelvis CT 01/17/24 16:20 IMPRESSION: Study is limited. Motion precludes detail. There are extensive infiltrates throughout both lungs. No abscess. No pneumoperitoneum. Chest CT 01/17/24 16:20 IMPRESSION: Study is limited. Motion precludes detail. There are extensive infiltrates throughout both lungs. No abscess. No pneumoperitoneum. Head CT 01/17/24 16:20 IMPRESSION: 1. Evaluation is limited by motion. However, accounting for these limitations, there is no evidence of acute intracranial hemorrhage or edematous territorial infarction. 2. Paranasal sinus disease. 3. Possible bilateral exophthalmos, correlate with physical examination. Discharge Plan Discharge Patient Disposition: Xfer Psychiatric Hosp Discharge Diagnosis: ams ,aspirational pneumonia , possible uti Referrals: Regan Hogue MD [Primary Care Provider] - 1 Week Discharge Medications: Continued docusate sodium 100 mg capsule 1 cap PO BID@0800,2000 atorvastatin 20 mg tablet 20 mg PO DAILY@1999 lorazepam 1 mg tablet 1 mg PO BID@0800,1600 lorazepam 0.5 mg Tablet 0.5 mg PO DAILY@1999 losartan 25 mg tablet 25 mg PO DAILY@0800 trazodone 50 mg tablet 50 mg PO DAILY@1999 metoprolol succinate 50 mg tablet extended release 24 hr 50 mg PO BID@0800,2000 furosemide 20 mg tablet 20 mg PO DAILY@0800 Protocol: Hold for SBP< HOLD for SBP < : 90 alum-mag hydroxide-simeth 200-200-20 mg/5 mL Suspension 10 ml PO TID PRN (Reason: Indigestion) Rx Instructions: administer between meals and at bedtime polyethylene glycol 3350 [Miralax] 17 gram/dose Powder 17 g PO DAILY PRN (Reason: Constipation) sennosides-docusate sodium [Senna Plus] 8.6-50 mg Tablet 2 tab PO DAILY Qty: 60 0RF omeprazole 20 mg Capsule,Delayed Release(Dr/Ec) 20 mg PO BID@0630,1630 Qty: 30 0RF albuterol sulfate 90 mcg/actuation HFA aerosol inhaler 2 puff inhalation Q6H PRN (Reason: Shortness Of Breath Or Wheezing) aspirin 81 mg Tablet,Delayed Release (Dr/Ec) 81 mg PO DAILY@0800 polyethylene glycol 3350 17 gram Powder In Packet 17 g PO DAILY Qty: 0 0RF insulin lispro [Admelog U-100 Insulin lispro] 100 unit/mL Solution See Protocol subcut QIDACHS Qty: 0 0RF Protocol: Insulin Correction Scale Less than or equal to 110 ---- Give (units): 0 111 to 150 Give (units): 0 151 to 200 Give (units): 2 201 to 250 Give (units): 4 251 to 300 Give (units): 6 301 to 350 Give (units): 8 Greater than 350 Give (units): 10 Call MD if Blood Glucose > : 350 cholecalciferol (vitamin D3) 25 mcg (1,000 unit) Tablet 25 mcg PO DAILY@0800 Qty: 0 0RF trazodone 50 mg Tablet 50 mg PO BEDTIME PRN (Reason: Insomnia) Rx Instructions: MAY REPEAT ONCE acetaminophen 650 mg Tablet Extended Release 650 mg PO Q6H PRN (Reason: Pain, Mild) tamsulosin 0.4 mg Capsule 0.4 mg PO DAILY olanzapine 5 mg Tablet 5 mg PO TID PRN (Reason: Agitation) nicotine (polacrilex) 4 mg Gum 4 mg BUCCAL Q2H PRN (Reason: Smoking Cessation) nicotine 21 mg/24 hr Patch 24 Hour 1 patch TRANSDERMAL DAILY PRN (Reason: Smoking Cessation) Discontinued lurasidone 60 mg tablet 60 mg PO DAILY@0800 clozapine 25 mg Tablet 225 mg PO DAILY Qty: 0 0RF Discharge Orders: Discharge Order (Routine); Ordered 01/23/24 Ordered By: Raina Jean Diet: Advance to usual diet Activity on Discharge: As tolerated Stand Alone Forms: Patient Portal Discharge page Print Language: Macedonian Care Plan Goals: moniter cbc while on clozapine further dosing adjustement for clozapine and other psych meds as per psych. complete augmentin 875 mg po bid for 7 days. Health Concerns: as above. Plan of Treatment: as above.
[2024-01-23] MEDS: amLODIPine Besylate 2.5 MG TABLET PO (13:53)
--- NOTE | 2024-01-23 14:13 | MHC.CM.PN ---
Patient will dc to [facility] today. CM attempted to reach HCP on file/Senait at # listed on the hcp and the individual who answered the phone indicated that Senait is NOT the HCP. CM called Primary Contact/Brother/Nigel @ [phone] and was only able to leave a detailed message explaining the dc plan and the IMM. The original IMM will be mailed to Nigel and a copy will be placed on the chart.
--- NOTE | 2024-01-23 14:32 | MHC.CM.PN ---
Per call from patient's listed HCP she is not willing to serve in this capacity.
[2024-01-23 15:34] LABS: Anti Nuclear Antibody Screen NEGATIVE (NEGATIVE)
[2024-01-26 22:53] LABS: Clozapine (Clozaril) 157 mcg/L; Norclozapine 111 mcg/L (25-400)
[2024-01-28 22:28] LABS: IgA 171 mg/dL (47-310); IgG 929 mg/dL (600-1640); IgM 100 mg/dL (50-300)
== END 2024-01-23 14:10 | DRG 388 ==
LOC: HO.IMC 01-16 10:33 → HO.ICU 01-17 12:50 → HO.IMC 01-18 11:09
PROVIDERS: Family Medicine; Hospitalist; Internal Medicine Critical Care Medicine; Internal Medicine Medical Oncology; Psychiatry & Neurology Psychiatry; Student in an Organized Health Care Education/Training Program; Admitting Provider Physician Assistant; PCP Internal Medicine; Visit Provider Internal Medicine
DX: K56.7 Ileus, unspecified (principal); G92.8 Other toxic encephalopathy; J96.01 Acute respiratory failure with hypoxia; J69.0 Pneumonitis due to inhalation of food and vomit; I42.1 Obstructive hypertrophic cardiomyopathy; N17.9 Acute kidney failure, unspecified; I47.20 Ventricular tachycardia, unspecified; D61.818 Other pancytopenia; E87.0 Hyperosmolality and hypernatremia; F05 Delirium due to known physiological condition; E86.0 Dehydration; F25.9 Schizoaffective disorder, unspecified; I10 Essential (primary) hypertension; I25.10 Atherosclerotic heart disease of native coronary artery without angina pectoris; E11.9 Type 2 diabetes mellitus without complications; Z20.822 Contact with and (suspected) exposure to COVID-19; Z87.891 Personal history of nicotine dependence; Z79.82 Long term (current) use of aspirin; Z79.4 Long term (current) use of insulin; Z79.899 Other long term (current) 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
CPT/HCPCS: 0241U; 36415; 62328; 70450; 71045; 71250; 74176; 74177; 78580; 80048; 80053; 80076; 80159; 80202; 81001; 82550; 82570; 82607; 82746; 82784; 82803; 82945; 82947; 83540; 83605; 83615; 83735; 83880; 84100; 84145; 84157; 84295; 84300; 84439; 84443; 84484; 85025; 85027; 85652; 86038; 86140; 86334; 86431; 86704; 86705; 86706; 86709; 86803; 87015; 87040; 87070; 87086; 87088; 87186; 87205; 87340; 87389; 87483; 87633; 87640; 87641; 89051; 93005; 93308; 95816; A9540; C1758; J0131; J0692; J0696; J1650; J2060; J2250; J2543; J3370; J7120; P9047; Q9967; S9485

== ENCOUNTER 2024-01-15 14:14 | Outpatient (BNV) | payer OTHER, SELFPAY | END 2024-01-17 12:44 | PROVIDERS: Admitting Provider Physician Assistant; PCP Internal Medicine; Visit Provider Internal Medicine Cardiovascular Disease | DX: R00.0 Tachycardia, unspecified (principal) | CPT/HCPCS: 93010 ==

== ENCOUNTER 2024-01-15 14:14 | Outpatient (BNV) | payer OTHER, SELFPAY | END 2024-01-17 15:30 | PROVIDERS: Admitting Provider Physician Assistant; PCP Internal Medicine; Visit Provider Radiology Vascular & Interventional Radiology | DX: R41.82 Altered mental status, unspecified (principal) | CPT/HCPCS: 62328 ==

== ENCOUNTER → 2024-01-15 14:14 | Outpatient (BNV) | payer OTHER, SELFPAY | PROVIDERS: Admitting Provider Physician Assistant; PCP Internal Medicine; Visit Provider Internal Medicine | DX: R41.0 Disorientation, unspecified (principal); F25.0 Schizoaffective disorder, bipolar type; R50.9 Fever, unspecified; J96.01 Acute respiratory failure with hypoxia | CPT/HCPCS: 99222 ==

== ENCOUNTER → 2024-01-15 14:14 | Outpatient (BNV) | payer OTHER, SELFPAY | PROVIDERS: Admitting Provider Physician Assistant; PCP Internal Medicine; Visit Provider Internal Medicine Medical Oncology | DX: D61.818 Other pancytopenia (principal) | CPT/HCPCS: 99222 ==

== ENCOUNTER → 2024-01-15 14:14 | Outpatient (BNV) | payer OTHER, SELFPAY | PROVIDERS: Admitting Provider Physician Assistant; PCP Internal Medicine; Visit Provider Physician Assistant | DX: G93.41 Metabolic encephalopathy (principal); F25.0 Schizoaffective disorder, bipolar type | CPT/HCPCS: 99223; 99232; 99233; 99239 ==

== ENCOUNTER → 2024-01-15 14:14 | Outpatient (BNV) | payer OTHER, SELFPAY | PROVIDERS: Admitting Provider Physician Assistant; PCP Internal Medicine; Visit Provider Internal Medicine Cardiovascular Disease | DX: R50.9 Fever, unspecified (principal); I42.1 Obstructive hypertrophic cardiomyopathy | CPT/HCPCS: 93010; 99222; 99232 ==

== ENCOUNTER → 2024-01-15 14:14 | Outpatient (BNV) | payer OTHER, SELFPAY | PROVIDERS: Admitting Provider Physician Assistant; Visit Provider Surgery | DX: K56.7 Ileus, unspecified (principal) | CPT/HCPCS: 99222; 99232 ==

== ENCOUNTER → 2024-01-15 14:14 | Outpatient (BNV) | payer OTHER, SELFPAY | PROVIDERS: Admitting Provider Physician Assistant; PCP Internal Medicine; Visit Provider Psychiatry & Neurology Psychiatry | DX: F25.0 Schizoaffective disorder, bipolar type (principal); R41.0 Disorientation, unspecified | CPT/HCPCS: 99222; 99232 ==

== ENCOUNTER → 2024-01-15 14:14 | Outpatient (BNV) | payer OTHER, SELFPAY | PROVIDERS: Admitting Provider Physician Assistant; PCP Internal Medicine; Visit Provider Internal Medicine Critical Care Medicine | DX: G93.41 Metabolic encephalopathy (principal); R50.9 Fever, unspecified; I42.1 Obstructive hypertrophic cardiomyopathy | CPT/HCPCS: 99291 ==

== ENCOUNTER → 2024-01-15 14:14 | Outpatient (BNV) | payer OTHER, SELFPAY | PROVIDERS: Admitting Provider Physician Assistant; PCP Internal Medicine; Visit Provider Psychiatry & Neurology Neurology | DX: G93.41 Metabolic encephalopathy (principal) | CPT/HCPCS: 99222 ==

== ENCOUNTER 2024-01-23 14:17 | Inpatient (IN) | payer OTHER, SELFPAY ==
--- NOTE | 2024-01-23 | ECG_ITS ---
Test Reason : chest pain Blood Pressure : / mmHG Vent. Rate : 102 BPM Atrial Rate : 102 BPM P-R Int : 158 ms QRS Dur : 104 ms QT Int : 402 ms P-R-T Axes : 095 036 188 degrees QTc Int : 523 ms Sinus tachycardia with Premature atrial complexes Left ventricular hypertrophy with repolarization abnormality ( Sokolow-Vences ) Prolonged QT Abnormal ECG When compared with ECG of 17-JAN-2024 13:48, No significant change was found Referred By: Geraldo Garcia Electronically Signed By:BRYSON MAURO
[2024-01-23 16:01] VITALS: BMI 34.8
[2024-01-23 16:02] VITALS: BP 185/86; PULSE 82; RESP 18; TEMP 36.2; O2SAT 96
[2024-01-23 16:40] LABS: Glucose, Whole Blood 135 mg/dL (60-115)
[2024-01-23 17:00] VITALS: BP 163/82
[2024-01-23] MEDS: Lurasidone HCl 20 MG TABLET 60 MG PO (17:56)
[2024-01-23] MEDS: Metoprolol Tartrate 25 MG TABLET PO ×3 (17:56→23:28)
[2024-01-23 18:42] VITALS: BP 173/82; PULSE 106; RESP 20; TEMP 36.1; O2SAT 94
--- NOTE | 2024-01-23 18:50 | ECG_ITS ---
Test Reason : cp Blood Pressure : / mmHG Vent. Rate : 101 BPM Atrial Rate : 101 BPM P-R Int : 162 ms QRS Dur : 104 ms QT Int : 402 ms P-R-T Axes : 091 037 192 degrees QTc Int : 521 ms Sinus tachycardia with Premature atrial complexes Left ventricular hypertrophy with repolarization abnormality ( Sokolow-Vences ) Prolonged QT Abnormal ECG When compared with ECG of 23-JAN-2024 18:49, No significant change was found Referred By: Jack Miller Electronically Signed By:BRYSON MAURO
[2024-01-23 19:27] LABS: Troponin-I High Sensitivity 10.3 ng/L (<3.5-35.0)
--- NOTE | 2024-01-23 19:38 | PM.EVENT ---
Event Note Date of Service: 01/23/24 Event Note: 7:12 PM - contacted by Dr. Garcia, psychiatrist, to notify patient has been c/o CP for the last 5 days. EKG stat done and showed similar changes to prior. I evaluated patient. VS remarkable for hypertension and mild tachycardia. He is a very vague historian. He is able to tell me he has pain in the middle chest pain. Denied shortness of breath but tachypneic. Cardiopulmonary exam remarkable for holosystolic murmur heard in all cardiac foci. Lungs are clear. Chart review: he had elevation of troponin recently but normalized. Will await for troponin and start tx with aspirin and nitroglycerin SL q5 min X3 as needed. Time Spent With Patient Time: Total time managing care of this patient today ____ minutes.
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
[2024-01-23 20:00] VITALS: BP 139/97; PULSE 96; RESP 16; TEMP 36.2; O2SAT 98
[2024-01-23] MEDS: Aspirin 325 MG TABLET PO (20:12)
[2024-01-23] MEDS: Atorvastatin Calcium 20 MG TABLET PO (20:14)
[2024-01-23] MEDS: Tamsulosin HCL 0.4 MG CAPSULE PO (20:14)
--- NOTE | 2024-01-23 20:46 | PC.NURSE ---
At 1842 Navid reported having chest pain stated I've been having chest pain for the last five days, he reported that pain has been a 7/10. VS obtained, Dr. Garcia notified, EKG ordered STAT, troponin ordered, one time dose of Metoprolol 25mg given. Hospitalist consult put in, reports given to oncoming RN.
[2024-01-23] MEDS: cloZAPine 25 MG TABLET 75 MG PO (21:26)
[2024-01-23] MEDS: traZODone HCL 50 MG TABLET PO (21:27)
[2024-01-23] MEDS: QUEtiapine Fumarate 25 MG TABLET PO (21:27)
[2024-01-23 21:28] LABS: Troponin-I High Sensitivity 10.4 ng/L (<3.5-35.0)
[2024-01-23 21:38] LABS: Glucose, Whole Blood 221 mg/dL (60-115)
[2024-01-23] MEDS: Insulin Lispro 100 UNIT/ML 3 ML VIAL SUBCUT (21:44)
[2024-01-24] MEDS: Omeprazole 20 MG CAPSULE.DR PO ×2 (06:06→16:26)
[2024-01-24 06:38] LABS: Glucose, Whole Blood 139 mg/dL (60-115)
[2024-01-24 07:00] VITALS: BMI 33.9
[2024-01-24 08:00] VITALS: BP 180/84; PULSE 88; RESP 17; TEMP 36.6; O2SAT 93
[2024-01-24] MEDS: Metoprolol Tartrate 25 MG TABLET PO ×4 (08:23→21:02)
[2024-01-24] MEDS: cloZAPine 25 MG TABLET 50 MG PO (08:23)
[2024-01-24] MEDS: QUEtiapine Fumarate 25 MG TABLET PO ×2 (08:23→21:03)
[2024-01-24] MEDS: Cholecalciferol (Vitamin D3) 25 MCG TABLET PO (08:23)
[2024-01-24] MEDS: Docusate Sodium 100 MG CAPSULE PO ×2 (08:24→21:02)
--- NOTE | 2024-01-24 08:51 | HO.PSYADMNOT ---
HPI Date of Service: 01/24/24 Chief Complaint: Psychosis Sources of Information: patient interviewed, chart reviewed and crisis/core team assessment reviewed HPI Subjective Notes: Conditional Voluntary Narrative: The patient is a 59-year-old male, with a past history of schizophrenia, initially admitted at the psychiatric unit [facility] but he was transferred to [facility] due to acute change in his medical condition. Most likely he had an as. If pneumonia, he was treated with antibiotics and when he was medically cleared transferred to this facility for continuation of care. Please see the HPI of the admission note name 5 for further details. After transfer from the medical unit, the patient was restarted on his regular medications. The patient reported that he is feeling tired, I explained him that he has just been recuperating from as. Evening ammonia and he also complained of several medical ailments. The patient denies active auditory hallucinations, paranoia or unsafe behaviors but he looks internally preoccupied. He adamantly denies that he is responding to internal stimuli he is able to contract for safety. On the intake interview the patient also admitted that he feels depressed and tired. We gather collateral information so we discussed the case with Dr. Garcia who reported that in the community he was receiving Clozaril 225 mg and Clozaril was stopped at because he is blood test showed the with some changes on the ANC and also he was transferred to Medicine due to bowel obstruction, most likely induced by Clozaril but later on it was clear that Clozaril was not involved in the bowel obstruction that resolved medically without any surgical intervention. We discussed with the patient options but the patient was feeling too tired to be involved in a further discussion of treatment options. Past Psychiatric History: patient has had multiple psychiatric hospitalizations particularly over the past several years. He has not been able to restate belies on clozapine and his clozapine dose has been capped relatively moderate because of his cardiac conduction issues and question of CHF in the past. He had responded reportedly well to Latuda in the past he was less agitated on Depakote. on moseley order. Medical Evaluation Reviewed: Yes [facility] Medical History Schizoaffective disorder Diabetes mellitus HOCM (hypertrophic obstructive cardiomyopathy) Congestive heart failure COVID-19 Thought disorder Nocturnal hypoxemia Constipation COPD (chronic obstructive pulmonary disease) JUDY (obstructive sleep apnea) Smoker BPH (benign prostatic hyperplasia) Diabetes mellitus Obesity (BMI 30-39.9) Pure hypercholesterolemia Prolonged QT interval Essential hypertension Aggression Hypertension Coronary artery disease CHF (congestive heart failure) Cardiac arrhythmia Myocardial infarction Surgical History History of ankle surgery History of intestinal surgery History of transurethral resection of prostate Family History: patient was adopted Social History: patient not working not is on disability was living in a supportive apartment but has not been able to maintain this setting in an extended period of time. currently in a prison. HS grad. SSDI income. Substance History: Denies Trauma History: has reported having been held at [employer] when he was 23 yo. Diagnostics Vital Signs (24Hr): Vital Signs - 24 hr 01/23/24 16:02 01/23/24 17:00 01/23/24 18:42 Temperature 97.1 F 97.0 F Pulse Rate 82 106 H Respiratory Rate 18 20 Blood Pressure 185/86 H 163/82 H 173/82 H Pulse Oximetry 96 94 Oxygen Delivery Method Room Air Room Air 01/23/24 20:00 01/24/24 08:00 Temperature 97.1 F 97.8 F Pulse Rate 96 88 Respiratory Rate 16 17 Blood Pressure 139/97 H 180/84 H Pulse Oximetry 98 93 Oxygen Delivery Method Room Air Room Air BMI result Body Mass Index 34.8 Labs Labs: Laboratory Results - last 48 hr 01/23/24 01/23/24 01/23/24 16:34 18:59 20:58 POC Glucose 135 H Troponin I High Sens 10.3 D 10.4 01/23/24 01/24/24 21:25 06:27 POC Glucose 221 H 139 H Troponin I High Sens Meds/Allergies Meds Home Medications ?Medication ?Instructions ?Recorded ?Confirmed ?Type docusate sodium 100 mg capsule 1 cap PO BID@0800,199908/18/22 01/23/24 History atorvastatin 20 mg tablet 20 mg PO DAILY@199904/20/23 01/23/24 History lorazepam 0.5 mg tablet 0.5 mg PO DAILY@199904/20/23 01/23/24 History lorazepam 1 mg tablet 1 mg PO BID@0800,1600 04/20/23 01/23/24 History albuterol sulfate 90 mcg/actuation 2 puff inhalation Q6H PRN 10/10/23 01/23/24 History aerosol inhaler Shortness Of Breath Or Wheezing aspirin 81 mg tablet,delayed 81 mg PO DAILY@0800 10/10/23 01/23/24 History release losartan 25 mg tablet 25 mg PO DAILY@79911/03/23 01/23/24 History trazodone 50 mg tablet 50 mg PO DAILY@199911/03/23 01/23/24 History aluminum-mag hydroxide-simethicone 10 ml PO TID PRN Indigestion 12/31/23 01/23/24 History 200 mg-200 mg-20 mg/5 mL oral susp furosemide 20 mg tablet 20 mg PO DAILY@79912/31/23 01/23/24 History metoprolol succinate 50 mg 50 mg PO BID@08,199912/31/23 01/23/24 History tablet,extended release 24 hr polyethylene glycol 3350 17 17 g PO DAILY PRN Constipation 12/31/23 01/23/24 History gram/dose oral powder (Miralax) acetaminophen 650 mg 650 mg PO Q6H PRN Pain, Mild 01/15/24 01/23/24 History tablet,extended release nicotine (polacrilex) 4 mg gum 4 mg buccal Q2H PRN Smoking 01/15/24 01/23/24 History Cessation nicotine 21 mg/24 hr daily 1 patch transdermal DAILY PRN 01/15/24 01/23/24 History transdermal patch Smoking Cessation olanzapine 5 mg tablet 5 mg PO TID PRN Agitation 01/15/24 01/23/24 History tamsulosin 0.4 mg capsule 0.4 mg PO DAILY 01/15/24 01/23/24 History trazodone 50 mg tablet 50 mg PO BEDTIME PRN Insomnia 01/15/24 01/23/24 History Allergies Allergies Allergy/AdvReac Type Severity Reaction Status Date / Time lithium [[place]] Allergy Severe Toxicity Verified 01/10/24 05:05 thiothixene Allergy Severe Swelling Verified 01/10/24 05:05 benztropine Allergy Unknown benztropine Verified 12/30/23 15:59 mesylate- unknown gabapentin [From NEURONTIN] Allergy Unknown Unknown Verified 01/10/24 05:05 fluphenazine [From Prolixin] Allergy Unknown Verified 01/10/24 05:04 barium sulfate AdvReac Intermediate Nausea and Verified 01/10/24 05:05 [BARIUM SULFATE] Vomiting haloperidol AdvReac Intermediate Muscle Verified 01/10/24 05:05 tension in legs diphenhydramine AdvReac Unknown urinary Verified 01/10/24 05:05 [From Benadryl] retention Mental Status Exam Mental Status Exam Patient Appearance: Appropriate (On hospital gowns) and Unkempt Patient Orientation: Person and Situation Level of Consciousness: Awake and Appropriate Patient Behavior: Guarded and Passive Mood Description: Withdrawn and Anxious Affect Description: Blunted Ability to Follow Directions: Fair Speech Pattern: Impoverished and Monotone Hallucinations: None Delusions: Ideas of Reference Thought Process: Distracted, Evasive and Slowed Thinking Thought Content: positive for [place] and positive for Poverty of Content Judgement: Fair Assessment & Plan Assessment & Plan (1) Schizoaffective disorder: Status: Acute Qualifiers: Schizoaffective disorder type: bipolar Qualified Code(s): F25.0 - Schizoaffective disorder, bipolar type Code(s): F25.9 - Schizoaffective disorder, unspecified Plan The patient is elderly male with a past history of schizoaffective disorder home Clozaril who was initially admitted into for psychotic decompensation but transferred to [facility] team after she had a small bowel obstruction that resolved medically and also as. If pneumonia. The patient is now medically cleared and transferring to this facility for psychiatric stabilization. Plan 1. Gather collateral information. 2. We will continue Clozaril and keep Latuda 60 mg and reassess. 3. We will continue with medical follow-up. 4. We will keep on 15 minutes checks since the patient is able to contract for safety Patient educated on: medication risk/benefits, therapeutic strategies and medical condition Reason for continued inpatient stay Substantial Risk for: inability to function, rapid decompensation and med/psych decompensation Statement Statement: I have reviewed the history and physical and performed a pertinent examination on my patient. No changes have occurred unless specified. If the History and Physical was not performed prior to admission, the Hospitalist's service will be consulted for completing the admission physical. Time Spent With Patient Time: Total time managing care of this patient today __45__ minutes.
[2024-01-24 11:38] LABS: Glucose, Whole Blood 193 mg/dL (60-115)
[2024-01-24] MEDS: Insulin Lispro 100 UNIT/ML 3 ML VIAL SUBCUT ×2 (11:39→21:01)
[2024-01-24 13:10] VITALS: BP 177/86; PULSE 88; O2SAT 96
[2024-01-24 16:30] LABS: Glucose, Whole Blood 132 mg/dL (60-115)
[2024-01-24 17:04] VITALS: BP 165/79; PULSE 83
[2024-01-24] MEDS: Lurasidone HCl 20 MG TABLET 60 MG PO (17:07)
[2024-01-24 20:00] VITALS: BP 148/89; PULSE 82; RESP 20; TEMP 36.7; O2SAT 95
[2024-01-24 20:45] LABS: Glucose, Whole Blood 162 mg/dL (60-115)
[2024-01-24 21:02] VITALS: BP 148/89; PULSE 82
[2024-01-24] MEDS: Tamsulosin HCL 0.4 MG CAPSULE PO (21:02)
[2024-01-24] MEDS: traZODone HCL 50 MG TABLET PO (21:02)
[2024-01-24] MEDS: cloZAPine 25 MG TABLET 75 MG PO (21:03)
[2024-01-24] MEDS: Atorvastatin Calcium 20 MG TABLET PO (21:03)
[2024-01-25] MEDS: Amoxicillin/Potassium Clav 875 MG TABLET PO ×3 (00:15→22:10)
[2024-01-25] MEDS: Omeprazole 20 MG CAPSULE.DR PO ×2 (06:08→16:48)
[2024-01-25 06:59] LABS: Glucose, Whole Blood 132 mg/dL (60-115)
[2024-01-25 08:04] VITALS: BP 145/79; PULSE 99; RESP 16; TEMP 36.7; O2SAT 96
[2024-01-25 08:05] VITALS: BP 145/79; PULSE 99
[2024-01-25] MEDS: QUEtiapine Fumarate 25 MG TABLET PO (08:05)
[2024-01-25] MEDS: Docusate Sodium 100 MG CAPSULE PO ×2 (08:05→20:46)
[2024-01-25] MEDS: cloZAPine 25 MG TABLET 50 MG PO (08:05)
[2024-01-25] MEDS: Sennosides/Docusate Sodium TABLET 2 TAB PO (08:05)
[2024-01-25] MEDS: Metoprolol Tartrate 25 MG TABLET PO ×4 (08:05→20:45)
[2024-01-25] MEDS: Cholecalciferol (Vitamin D3) 25 MCG TABLET PO (08:06)
[2024-01-25 11:26] LABS: Glucose, Whole Blood 174 mg/dL (60-115)
[2024-01-25] MEDS: Insulin Lispro 100 UNIT/ML 3 ML VIAL SUBCUT ×2 (11:52→20:43)
[2024-01-25 13:03] VITALS: BP 133/72; PULSE 96
--- NOTE | 2024-01-25 13:58 | HO.PSYCHPN ---
Subjective Subjective Date of Service: 01/25/24 Reason For Visit: Psychosis Subjective Notes: Conditional Voluntary Interim History: The nursing staff reported the patient remains with flat affect, his fasting blood sugars have been okay he slept 8 hours. The occupational therapist tried to do a [place] but he could not finish he was able to attend to group yesterday. On interview the patient remains flat with blunted affect. He denies hallucinations or delusions at this moment. Mental Status Exam Mental Status Exam Patient Appearance: Appropriate Patient Orientation: Person and Situation Level of Consciousness: Awake and Appropriate Patient Behavior: Guarded and Passive Mood Description: Withdrawn Affect Description: Constricted Patient Cognition Impaired: Yes Ability to Follow Directions: Good Speech Pattern: Clear Hallucinations: None Delusions: Paranoid Ideation and Ideas of Reference Thought Process: Distracted and Slowed Thinking Thought Content: positive for [place] and positive for Poverty of Content Judgement: Fair Diagnostics Vital Signs (24Hr): Vital Signs - 24 hr 01/24/24 17:04 01/24/24 20:00 01/24/24 21:02 Temperature 98.1 F Pulse Rate 83 82 82 Respiratory Rate 20 Blood Pressure 165/79 H 148/89 H 148/89 H Pulse Oximetry 95 Oxygen Delivery Method Room Air 01/25/24 08:04 01/25/24 08:05 01/25/24 13:03 Temperature 98.1 F Pulse Rate 99 99 96 Respiratory Rate 16 Blood Pressure 145/79 H 145/79 H 133/72 Pulse Oximetry 96 Oxygen Delivery Method Room Air BMI result Body Mass Index 33.9 Labs Labs: Laboratory Results - last 48 hr 01/23/24 01/23/24 01/23/24 16:34 18:59 20:58 POC Glucose 135 H Troponin I High Sens 10.3 D 10.4 01/23/24 01/24/24 01/24/24 21:25 06:27 11:34 POC Glucose 221 H 139 H 193 H Troponin I High Sens 01/24/24 01/24/24 01/25/24 16:24 20:41 06:53 POC Glucose 132 H 162 H 132 H Troponin I High Sens 01/25/24 11:21 POC Glucose 174 H Troponin I High Sens Medications Medications Current Medications Acetaminophen (Acetaminophen 325 Mg Tablet) 650 mg PO Q6H PRN PRN Reason: Headache/Pain Mild Scale (1-3) Al Hydroxide/Mg Hydroxide (Magnesium Hydrox/Alum Hydrox 30 Ml Oral.Susp) 10 ml PO TID PRN PRN Reason: Indigestion Albuterol Sulfate (Albuterol Sulfate 90 Mcg 8 Gm Inhaler) 2 puff INHALE Q6H PRN PRN Reason: Shortness Of Breath Or Wheezing Amoxicillin/Clavulanate Potassium (Amoxicillin/Potassium Clav 875 Mg Tablet) 875 mg PO Q12H [facility] Last Admin: 01/25/24 13:03 Dose: 875 mg Atorvastatin Calcium (Atorvastatin Calcium 20 Mg Tablet) 20 mg PO DAILY@1999 [facility] Last Admin: 01/24/24 21:03 Dose: 20 mg Clozapine (Clozapine 25 Mg Tablet) 50 mg PO DAILY [facility] Last Admin: 01/25/24 08:05 Dose: 50 mg Clozapine (Clozapine 25 Mg Tablet) 75 mg PO BEDTIME [facility] Last Admin: 01/24/24 21:03 Dose: 75 mg Docusate Sodium (Docusate Sodium 100 Mg Capsule) 100 mg PO BID@0800,1999 [facility] Last Admin: 01/25/24 08:05 Dose: 100 mg Glucose (Glucose Gel 15 Gm Gel..Gram.) 15 gm PO Q15M PRN; Protocol PRN Reason: per Hypoglycemia Standing Ord. Insulin Human Lispro (Insulin Lispro 100 Unit/Ml 3 Ml Vial) 0 unit SUBCUT QIDACHS [facility]; Protocol Last Admin: 01/25/24 11:52 Dose: 2 unit Lurasidone HCl (Lurasidone Hcl 20 Mg Tablet) 60 mg PO DAILY@1800 [facility] Last Admin: 01/24/24 17:07 Dose: 60 mg Magnesium Hydroxide (Milk Of Magnesia 30 Ml Oral.Susp) 30 ml PO DAILY PRN PRN Reason: Constipation Magnesium Hydroxide (Milk Of Magnesia 30 Ml Oral.Susp) 30 ml PO DAILY PRN PRN Reason: Constipation Metoprolol Tartrate (Metoprolol Tartrate 25 Mg Tablet) 25 mg PO QID [facility]; Protocol Last Admin: 01/25/24 13:03 Dose: 25 mg Nicotine (Nicotine 21 Mg Patch.Td24) 21 mg TRANSDERMA DAILY PRN PRN Reason: smoking cessation Nicotine Polacrilex (Nicotine Polacrilex 2 Mg Gum) 4 mg BUCCAL Q2H PRN PRN Reason: Nicotine Cravings Nitroglycerin (Nitroglycerin 0.4 Mg Tab.Subl) 0.4 mg SUBLINGUAL Q5MX3 PRN PRN Reason: Chest Pain Omeprazole (Omeprazole 20 Mg Capsule.) 20 mg PO BID@0630,1630 [facility] Last Admin: 01/25/24 06:08 Dose: 20 mg Polyethylene Glycol (Polyethylene Glycol 3350 17 Gm Powd.Pack) 17 gm PO DAILY [facility] Last Admin: 01/25/24 08:07 Dose: Not Given Polyethylene Glycol (Polyethylene Glycol 3350 17 Gm Powd.Pack) 17 gm PO DAILY PRN PRN Reason: Constipation Senna/Docusate Sodium (Sennosides/Docusate Sodium Tablet) 2 tab PO DAILY [facility] Last Admin: 01/25/24 08:05 Dose: 2 tab Tamsulosin HCl (Tamsulosin Hcl 0.4 Mg Capsule) 0.4 mg PO DAILY@1999 [facility] Last Admin: 01/24/24 21:02 Dose: 0.4 mg Trazodone HCl (Trazodone Hcl 50 Mg Tablet) 50 mg PO BEDTIME [facility] Last Admin: 01/24/24 21:02 Dose: 50 mg Vitamin D (Cholecalciferol (Vitamin D3) 25 Mcg Tablet) 25 mcg PO DAILY@0800 [facility] Last Admin: 01/25/24 08:06 Dose: 25 mcg Allergies Allergies Allergy/AdvReac Type Severity Reaction Status Date / Time lithium [[place]] Allergy Severe Toxicity Verified 01/10/24 05:05 thiothixene Allergy Severe Swelling Verified 01/10/24 05:05 benztropine Allergy Unknown benztropine Verified 12/30/23 15:59 mesylate- unknown gabapentin [From NEURONTIN] Allergy Unknown Unknown Verified 01/10/24 05:05 fluphenazine [From Prolixin] Allergy Unknown Verified 01/10/24 05:04 barium sulfate AdvReac Intermediate Nausea and Verified 01/10/24 05:05 [BARIUM SULFATE] Vomiting haloperidol AdvReac Intermediate Muscle Verified 01/10/24 05:05 tension in legs diphenhydramine AdvReac Unknown urinary Verified 01/10/24 05:05 [From Benadryl] retention Assessment & Plan Assessment & Plan (1) Schizoaffective disorder: Qualifiers: Schizoaffective disorder type: bipolar Qualified Code(s): F25.0 - Schizoaffective disorder, bipolar type Status: Acute Code(s): F25.9 - Schizoaffective disorder, unspecified Plan The patient is elderly male with a past history of schizoaffective disorder home Clozaril who was initially admitted into for psychotic decompensation but transferred to med tele team after she had a small bowel obstruction that resolved medically and also as. If pneumonia. The patient is now medically cleared and transferring to this facility for psychiatric stabilization. Plan 1. Gather collateral information. 2. We will continue Clozaril and keep Latuda 60 mg and reassess. 3. We will continue with medical follow-up. 4. We will keep on 15 minutes checks since the patient is able to contract for safety Reason for continued inpatient stay Substantial Risk for: inability to function, rapid decompensation and med/psych decompensation Time Spent With Patient Time: Total time managing care of this patient today _20___ minutes.
--- NOTE | 2024-01-25 14:45 | MHC.CLN ---
NUTRITION CONSULT ROUTINE . DIET=DM 2000 KCALS - APPROPRIATE. A1C ON 01/09=6.2. POC MONITORED ON UNIT, 132-193 H. ADMITTED TO [facility] FROM [facility]. SAME DIET ON [facility] AND INTAKE MOST MEALS 75-100%. SHOWS WEIGHT LOSS TREND X 6 MONTHS -6.8%. NOT SIGNIFICANT. SKIN WITH HEALING SCAB TO LEFT BUTTOCK. NO ADDITIONAL NUTRITION INTERVENTIONS AT THIS TIME.
[2024-01-25 16:29] LABS: Glucose, Whole Blood 135 mg/dL (60-115)
[2024-01-25 16:48] VITALS: BP 165/72; PULSE 96
[2024-01-25] MEDS: Lurasidone HCl 20 MG TABLET 60 MG PO (18:12)
[2024-01-25 20:00] VITALS: BP 134/77; PULSE 82; RESP 16; TEMP 35.8; O2SAT 93
[2024-01-25 20:01] LABS: Glucose, Whole Blood 164 mg/dL (60-115)
[2024-01-25] MEDS: Tamsulosin HCL 0.4 MG CAPSULE PO (20:43)
[2024-01-25] MEDS: cloZAPine 25 MG TABLET 75 MG PO (20:44)
[2024-01-25] MEDS: Atorvastatin Calcium 20 MG TABLET PO (20:45)
[2024-01-25] MEDS: traZODone HCL 50 MG TABLET PO (20:46)
[2024-01-26 06:44] LABS: Glucose, Whole Blood 147 mg/dL (60-115)
[2024-01-26] MEDS: Omeprazole 20 MG CAPSULE.DR PO ×2 (07:18→16:52)
[2024-01-26 08:01] VITALS: BP 143/69; PULSE 84; RESP 16; TEMP 36; O2SAT 97
[2024-01-26 08:47] VITALS: BP 143/69; PULSE 84
[2024-01-26] MEDS: Metoprolol Tartrate 25 MG TABLET PO ×4 (08:47→21:21)
[2024-01-26] MEDS: Cholecalciferol (Vitamin D3) 25 MCG TABLET PO (08:47)
[2024-01-26] MEDS: cloZAPine 25 MG TABLET 50 MG PO (08:47)
[2024-01-26] MEDS: polyethylene glycoL 3350 17 GM POWD.PACK PO (08:47)
[2024-01-26] MEDS: Docusate Sodium 100 MG CAPSULE PO ×2 (08:48→21:21)
[2024-01-26] MEDS: Sennosides/Docusate Sodium TABLET 2 TAB PO (08:48)
--- NOTE | 2024-01-26 10:58 | HO.PSYCHPN ---
Subjective Subjective Date of Service: 01/26/24 Reason For Visit: Psychosis Subjective Notes: Conditional Voluntary Interim History: Patient was seen and discussed in rounds today. Records and plans were reviewed. He continues to be isolative. Compliant with meds. No complaints or side effects. He did have a bowel movement. No complaints or side effects. Eating and sleeping adequately. No changes were made Mental Status Exam Mental Status Exam Patient Appearance: Appropriate Patient Orientation: Person and Situation Level of Consciousness: Awake and Appropriate Patient Behavior: Guarded and Passive Mood Description: Withdrawn Affect Description: Constricted Patient Cognition Impaired: Yes Ability to Follow Directions: Good Speech Pattern: Clear Hallucinations: None Delusions: Paranoid Ideation and Ideas of Reference Thought Process: Distracted and Slowed Thinking Thought Content: positive for [place] and positive for Poverty of Content Judgement: Fair Diagnostics Vital Signs (24Hr): Vital Signs - 24 hr 01/25/24 13:03 01/25/24 16:48 01/25/24 20:00 Temperature 96.4 F L Pulse Rate 96 96 82 Respiratory Rate 16 Blood Pressure 133/72 165/72 H 134/77 Pulse Oximetry 93 Oxygen Delivery Method Room Air 01/26/24 08:01 01/26/24 08:47 Temperature 96.8 F Pulse Rate 84 84 Respiratory Rate 16 Blood Pressure 143/69 H 143/69 H Pulse Oximetry 97 Oxygen Delivery Method Room Air BMI result Body Mass Index 33.9 Labs Labs: Laboratory Results - last 48 hr 01/24/24 01/24/24 01/24/24 11:34 16:24 20:41 POC Glucose 193 H 132 H 162 H 01/25/24 01/25/24 01/25/24 06:53 11:21 16:25 POC Glucose 132 H 174 H 135 H 01/25/24 01/26/24 19:53 06:37 POC Glucose 164 H 147 H Medications Medications Current Medications Acetaminophen (Acetaminophen 325 Mg Tablet) 650 mg PO Q6H PRN PRN Reason: Headache/Pain Mild Scale (1-3) Al Hydroxide/Mg Hydroxide (Magnesium Hydrox/Alum Hydrox 30 Ml Oral.Susp) 10 ml PO TID PRN PRN Reason: Indigestion Albuterol Sulfate (Albuterol Sulfate 90 Mcg 8 Gm Inhaler) 2 puff INHALE Q6H PRN PRN Reason: Shortness Of Breath Or Wheezing Amoxicillin/Clavulanate Potassium (Amoxicillin/Potassium Clav 875 Mg Tablet) 875 mg PO Q12H [facility] Last Admin: 01/25/24 22:10 Dose: 875 mg Atorvastatin Calcium (Atorvastatin Calcium 20 Mg Tablet) 20 mg PO DAILY@1999 [facility] Last Admin: 01/25/24 20:45 Dose: 20 mg Clozapine (Clozapine 25 Mg Tablet) 50 mg PO DAILY [facility] Last Admin: 01/26/24 08:47 Dose: 50 mg Clozapine (Clozapine 25 Mg Tablet) 75 mg PO BEDTIME [facility] Last Admin: 01/25/24 20:44 Dose: 75 mg Docusate Sodium (Docusate Sodium 100 Mg Capsule) 100 mg PO BID@08,1999 [facility] Last Admin: 01/26/24 08:48 Dose: 100 mg Glucose (Glucose Gel 15 Gm Gel..Gram.) 15 gm PO Q15M PRN; Protocol PRN Reason: per Hypoglycemia Standing Ord. Insulin Human Lispro (Insulin Lispro 100 Unit/Ml 3 Ml Vial) 0 unit SUBCUT QIDACHS [facility]; Protocol Last Admin: 01/26/24 07:48 Dose: Not Given Lurasidone HCl (Lurasidone Hcl 20 Mg Tablet) 60 mg PO DAILY@1800 [facility] Last Admin: 01/25/24 18:12 Dose: 60 mg Magnesium Hydroxide (Milk Of Magnesia 30 Ml Oral.Susp) 30 ml PO DAILY PRN PRN Reason: Constipation Magnesium Hydroxide (Milk Of Magnesia 30 Ml Oral.Susp) 30 ml PO DAILY PRN PRN Reason: Constipation Metoprolol Tartrate (Metoprolol Tartrate 25 Mg Tablet) 25 mg PO QID [facility]; Protocol Last Admin: 01/26/24 08:47 Dose: 25 mg Nicotine (Nicotine 21 Mg Patch.Td24) 21 mg TRANSDERMA DAILY PRN PRN Reason: smoking cessation Nicotine Polacrilex (Nicotine Polacrilex 2 Mg Gum) 4 mg BUCCAL Q2H PRN PRN Reason: Nicotine Cravings Nitroglycerin (Nitroglycerin 0.4 Mg Tab.Subl) 0.4 mg SUBLINGUAL Q5MX3 PRN PRN Reason: Chest Pain Omeprazole (Omeprazole 20 Mg Capsule.Dr) 20 mg PO BID@0630,1630 [facility] Last Admin: 01/26/24 07:18 Dose: 20 mg Polyethylene Glycol (Polyethylene Glycol 3350 17 Gm Powd.Pack) 17 gm PO DAILY [facility] Last Admin: 04/20/24 08:47 Dose: 17 gm Polyethylene Glycol (Polyethylene Glycol 3350 17 Gm Powd.Pack) 17 gm PO DAILY PRN PRN Reason: Constipation Senna/Docusate Sodium (Sennosides/Docusate Sodium Tablet) 2 tab PO DAILY [facility] Last Admin: 01/26/24 08:48 Dose: 2 tab Tamsulosin HCl (Tamsulosin Hcl 0.4 Mg Capsule) 0.4 mg PO DAILY@2000 [facility] Last Admin: 01/25/24 20:43 Dose: 0.4 mg Trazodone HCl (Trazodone Hcl 50 Mg Tablet) 50 mg PO BEDTIME [facility] Last Admin: 01/25/24 20:46 Dose: 50 mg Vitamin D (Cholecalciferol (Vitamin D3) 25 Mcg Tablet) 25 mcg PO DAILY@0800 [facility] Last Admin: 01/26/24 08:47 Dose: 25 mcg Allergies Allergies Allergy/AdvReac Type Severity Reaction Status Date / Time lithium [[place]] Allergy Severe Toxicity Verified 01/10/24 05:05 thiothixene Allergy Severe Swelling Verified 01/10/24 05:05 benztropine Allergy Unknown benztropine Verified 12/30/23 15:59 mesylate- unknown gabapentin [From NEURONTIN] Allergy Unknown Unknown Verified 01/10/24 05:05 fluphenazine [From Prolixin] Allergy Unknown Verified 01/10/24 05:04 barium sulfate AdvReac Intermediate Nausea and Verified 01/10/24 05:05 [BARIUM SULFATE] Vomiting haloperidol AdvReac Intermediate Muscle Verified 01/10/24 05:05 tension in legs diphenhydramine AdvReac Unknown urinary Verified 01/10/24 05:05 [From Benadryl] retention Assessment & Plan Assessment & Plan (1) Schizoaffective disorder: Qualifiers: Schizoaffective disorder type: bipolar Qualified Code(s): F25.0 - Schizoaffective disorder, bipolar type Status: Acute Code(s): F25.9 - Schizoaffective disorder, unspecified Plan The patient is elderly male with a past history of schizoaffective disorder home Clozaril who was initially admitted into for psychotic decompensation but transferred to [facility] team after she had a small bowel obstruction that resolved medically and also as. If pneumonia. The patient is now medically cleared and transferring to this facility for psychiatric stabilization. Plan 1. Gather collateral information. 2. We will continue Clozaril and keep Latuda 60 mg and reassess. 3. We will continue with medical follow-up. 4. We will keep on 15 minutes checks since the patient is able to contract for safety 01/26/2024: Continue current regimen and plans Reason for continued inpatient stay Substantial Risk for: med/psych decompensation Time Spent With Patient Time: Total time managing care of this patient today ____ minutes.
[2024-01-26 11:19] LABS: Glucose, Whole Blood 170 mg/dL (60-115)
[2024-01-26 11:52] VITALS: BP 156/79; PULSE 80
[2024-01-26] MEDS: Amoxicillin/Potassium Clav 875 MG TABLET PO ×2 (11:52→21:20)
[2024-01-26] MEDS: Insulin Lispro 100 UNIT/ML 3 ML VIAL SUBCUT ×2 (11:52→21:22)
[2024-01-26 16:30] LABS: Glucose, Whole Blood 143 mg/dL (60-115)
[2024-01-26 16:52] VITALS: BP 142/71; PULSE 84
[2024-01-26] MEDS: Lurasidone HCl 20 MG TABLET 60 MG PO (16:52)
[2024-01-26 20:00] VITALS: BP 181/87; PULSE 82; RESP 16; TEMP 36.1; O2SAT 97
[2024-01-26 20:04] LABS: Glucose, Whole Blood 156 mg/dL (60-115)
[2024-01-26] MEDS: cloZAPine 25 MG TABLET 75 MG PO (21:20)
[2024-01-26 21:21] VITALS: BP 191/87; PULSE 82
[2024-01-26] MEDS: Atorvastatin Calcium 20 MG TABLET PO (21:21)
[2024-01-26] MEDS: Tamsulosin HCL 0.4 MG CAPSULE PO (21:21)
[2024-01-26] MEDS: traZODone HCL 50 MG TABLET PO (21:22)
[2024-01-27] MEDS: Omeprazole 20 MG CAPSULE.DR PO ×2 (05:50→17:06)
[2024-01-27 06:35] LABS: Glucose, Whole Blood 139 mg/dL (60-115)
[2024-01-27 07:56] VITALS: BP 144/82; PULSE 103; RESP 18; TEMP 36.8; O2SAT 96
[2024-01-27] MEDS: Sennosides/Docusate Sodium TABLET 2 TAB PO (08:00)
[2024-01-27] MEDS: Docusate Sodium 100 MG CAPSULE PO ×2 (08:00→20:46)
[2024-01-27] MEDS: cloZAPine 25 MG TABLET 50 MG PO (08:00)
[2024-01-27 08:01] VITALS: BP 144/82; PULSE 103
[2024-01-27] MEDS: Metoprolol Tartrate 25 MG TABLET PO ×4 (08:01→20:45)
[2024-01-27] MEDS: Cholecalciferol (Vitamin D3) 25 MCG TABLET PO (08:01)
[2024-01-27] MEDS: polyethylene glycoL 3350 17 GM POWD.PACK PO (08:02)
--- NOTE | 2024-01-27 10:08 | P.PNPSI_ITS ---
Subjective Subjective Date of Service: 01/27/24 Reason For Visit: Psychosis Subjective Notes: Conditional Voluntary Interim History: Patient was seen and discussed in rounds today. Records and plans were reviewed. He has been mostly in bed. Sleeping and taking medications. Eating adequately. No AVH. No SI. No behavioral issues. No changes were placed today. Review of Systems Review of Systems Yes all other systems are reviewed and are negative Mental Status Exam Mental Status Exam Patient Appearance: Appropriate Patient Orientation: Person and Situation Level of Consciousness: Awake and Appropriate Patient Behavior: Guarded and Passive Mood Description: Withdrawn Affect Description: Constricted Patient Cognition Impaired: Yes Ability to Follow Directions: Good Speech Pattern: Clear Hallucinations: None Delusions: Paranoid Ideation and Ideas of Reference Thought Process: Distracted and Slowed Thinking Thought Content: positive for [place] and positive for Poverty of Content Judgement: Fair Diagnostics Vital Signs (24Hr): Vital Signs - 24 hr 01/26/24 11:52 01/26/24 16:52 01/26/24 20:00 Temperature 96.9 F Pulse Rate 80 84 82 Respiratory Rate 16 Blood Pressure 156/79 H 142/71 H 181/87 H Pulse Oximetry 97 Oxygen Delivery Method Room Air 01/26/24 21:21 01/27/24 07:56 01/27/24 08:01 Temperature 98.2 F Pulse Rate 82 103 H 103 H Respiratory Rate 18 Blood Pressure 191/87 H 144/82 H 144/82 H Pulse Oximetry 96 Oxygen Delivery Method Room Air BMI result Body Mass Index 33.9 Labs Labs: Laboratory Results - last 48 hr 01/25/24 01/25/24 01/25/24 11:21 16:25 19:53 POC Glucose 174 H 135 H 164 H 01/26/24 01/26/24 01/26/24 06:37 11:09 16:17 POC Glucose 147 H 170 H 143 H 01/26/24 01/27/24 20:00 06:25 POC Glucose 156 H 139 H Medications Medications Current Medications Acetaminophen (Acetaminophen 325 Mg Tablet) 650 mg PO Q6H PRN PRN Reason: Headache/Pain Mild Scale (1-3) Al Hydroxide/Mg Hydroxide (Magnesium Hydrox/Alum Hydrox 30 Ml Oral.Susp) 10 ml PO TID PRN PRN Reason: Indigestion Albuterol Sulfate (Albuterol Sulfate 90 Mcg 8 Gm Inhaler) 2 puff INHALE Q6H PRN PRN Reason: Shortness Of Breath Or Wheezing Amoxicillin/Clavulanate Potassium (Amoxicillin/Potassium Clav 875 Mg Tablet) 875 mg PO Q12H [facility] Last Admin: 01/26/24 21:20 Dose: 875 mg Atorvastatin Calcium (Atorvastatin Calcium 20 Mg Tablet) 20 mg PO DAILY@1999 [facility] Last Admin: 01/26/24 21:21 Dose: 20 mg Clozapine (Clozapine 25 Mg Tablet) 50 mg PO DAILY [facility] Last Admin: 01/27/24 08:00 Dose: 50 mg Clozapine (Clozapine 25 Mg Tablet) 75 mg PO BEDTIME [facility] Last Admin: 01/26/24 21:20 Dose: 75 mg Docusate Sodium (Docusate Sodium 100 Mg Capsule) 100 mg PO BID@08,1999 [facility] Last Admin: 01/27/24 08:00 Dose: 100 mg Glucose (Glucose Gel 15 Gm Gel..Gram.) 15 gm PO Q15M PRN; Protocol PRN Reason: per Hypoglycemia Standing Ord. Insulin Human Lispro (Insulin Lispro 100 Unit/Ml 3 Ml Vial) 0 unit SUBCUT QIDACHS [facility]; Protocol Last Admin: 01/27/24 07:09 Dose: Not Given Lurasidone HCl (Lurasidone Hcl 20 Mg Tablet) 60 mg PO DAILY@1800 [facility] Last Admin: 01/26/24 16:52 Dose: 60 mg Magnesium Hydroxide (Milk Of Magnesia 30 Ml Oral.Susp) 30 ml PO DAILY PRN PRN Reason: Constipation Magnesium Hydroxide (Milk Of Magnesia 30 Ml Oral.Susp) 30 ml PO DAILY PRN PRN Reason: Constipation Metoprolol Tartrate (Metoprolol Tartrate 25 Mg Tablet) 25 mg PO QID [facility]; Protocol Last Admin: 01/27/24 08:01 Dose: 25 mg Nicotine (Nicotine 21 Mg Patch.Td24) 21 mg TRANSDERMA DAILY PRN PRN Reason: smoking cessation Nicotine Polacrilex (Nicotine Polacrilex 2 Mg Gum) 4 mg BUCCAL Q2H PRN PRN Reason: Nicotine Cravings Nitroglycerin (Nitroglycerin 0.4 Mg Tab.Subl) 0.4 mg SUBLINGUAL Q5MX3 PRN PRN Reason: Chest Pain Omeprazole (Omeprazole 20 Mg Capsule.Dr) 20 mg PO BID@0630,1630 [facility] Last Admin: 01/27/24 05:50 Dose: 20 mg Polyethylene Glycol (Polyethylene Glycol 3350 17 Gm Powd.Pack) 17 gm PO DAILY [facility] Last Admin: 01/27/24 08:02 Dose: 17 gm Polyethylene Glycol (Polyethylene Glycol 3350 17 Gm Powd.Pack) 17 gm PO DAILY PRN PRN Reason: Constipation Senna/Docusate Sodium (Sennosides/Docusate Sodium Tablet) 2 tab PO DAILY [facility] Last Admin: 01/27/24 08:00 Dose: 2 tab Tamsulosin HCl (Tamsulosin Hcl 0.4 Mg Capsule) 0.4 mg PO DAILY@2000 [facility] Last Admin: 01/26/24 21:21 Dose: 0.4 mg Trazodone HCl (Trazodone Hcl 50 Mg Tablet) 50 mg PO BEDTIME [facility] Last Admin: 01/26/24 21:22 Dose: 50 mg Vitamin D (Cholecalciferol (Vitamin D3) 25 Mcg Tablet) 25 mcg PO DAILY@0800 [facility] Last Admin: 01/27/24 08:01 Dose: 25 mcg Allergies Allergies Allergy/AdvReac Type Severity Reaction Status Date / Time lithium [[place]] Allergy Severe Toxicity Verified 01/10/24 05:05 thiothixene Allergy Severe Swelling Verified 01/10/24 05:05 benztropine Allergy Unknown benztropine Verified 12/30/23 15:59 mesylate- unknown gabapentin [From NEURONTIN] Allergy Unknown Unknown Verified 01/10/24 05:05 fluphenazine [From Prolixin] Allergy Unknown Verified 01/10/24 05:04 barium sulfate AdvReac Intermediate Nausea and Verified 01/10/24 05:05 [BARIUM SULFATE] Vomiting haloperidol AdvReac Intermediate Muscle Verified 01/10/24 05:05 tension in legs diphenhydramine AdvReac Unknown urinary Verified 01/10/24 05:05 [From Benadryl] retention Assessment & Plan Assessment & Plan (1) Schizoaffective disorder: Qualifiers: Schizoaffective disorder type: bipolar Qualified Code(s): F25.0 - Schizoaffective disorder, bipolar type Status: Acute Code(s): F25.9 - Schizoaffective disorder, unspecified Plan The patient is elderly male with a past history of schizoaffective disorder home Clozar[facility] who was initially admitted into for psychotic decompensation but transferred to [facility] team after she had a small bowel obstruction that resolved medically and also as. If pneumonia. The patient is now medically cleared and transferring to this facility for psychiatric stabilization. Plan 1. Gather collateral information. 2. We will continue Clozaril and keep Latuda 60 mg and reassess. 3. We will continue with medical follow-up. 4. We will keep on 15 minutes checks since the patient is able to contract for safety 01/26/2024: Continue current regimen and plans 01/27/2024: Continue current regimen and plans Reason for continued inpatient stay Substantial Risk for: med/psych decompensation Time Spent With Patient Time: Total time managing care of this patient today ____ minutes.
[2024-01-27 11:23] LABS: Glucose, Whole Blood 158 mg/dL (60-115)
[2024-01-27 12:09] VITALS: BP 132/69; PULSE 83
[2024-01-27] MEDS: Amoxicillin/Potassium Clav 875 MG TABLET PO ×2 (12:09→20:52)
[2024-01-27] MEDS: Insulin Lispro 100 UNIT/ML 3 ML VIAL SUBCUT ×2 (12:09→20:50)
[2024-01-27 16:26] LABS: Glucose, Whole Blood 149 mg/dL (60-115)
[2024-01-27 17:06] VITALS: BP 139/78; PULSE 89
[2024-01-27] MEDS: Lurasidone HCl 20 MG TABLET 60 MG PO (17:07)
[2024-01-27 20:00] VITALS: BP 159/85; PULSE 77; RESP 16; TEMP 36.2; O2SAT 96
[2024-01-27 20:19] LABS: Glucose, Whole Blood 167 mg/dL (60-115)
[2024-01-27 20:45] VITALS: BP 159/85; PULSE 77
[2024-01-27] MEDS: traZODone HCL 50 MG TABLET PO (20:46)
[2024-01-27] MEDS: Tamsulosin HCL 0.4 MG CAPSULE PO (20:46)
[2024-01-27] MEDS: Atorvastatin Calcium 20 MG TABLET PO (20:46)
[2024-01-27] MEDS: cloZAPine 25 MG TABLET 75 MG PO (20:46)
[2024-01-28] MEDS: Omeprazole 20 MG CAPSULE.DR PO ×2 (05:56→16:21)
[2024-01-28 06:56] LABS: Glucose, Whole Blood 139 mg/dL (60-115)
[2024-01-28 08:00] VITALS: BP 114/77; PULSE 80; RESP 17; TEMP 36.6; O2SAT 96
[2024-01-28 10:58] VITALS: BP 114/77; PULSE 80
[2024-01-28] MEDS: Docusate Sodium 100 MG CAPSULE PO ×2 (10:58→21:17)
[2024-01-28] MEDS: Sennosides/Docusate Sodium TABLET 2 TAB PO (10:58)
[2024-01-28] MEDS: polyethylene glycoL 3350 17 GM POWD.PACK PO (10:58)
[2024-01-28] MEDS: Metoprolol Tartrate 25 MG TABLET PO ×4 (10:58→21:18)
[2024-01-28] MEDS: Cholecalciferol (Vitamin D3) 25 MCG TABLET PO (10:58)
[2024-01-28] MEDS: cloZAPine 25 MG TABLET 50 MG PO (10:59)
[2024-01-28 11:34] LABS: Glucose, Whole Blood 215 mg/dL (60-115)
[2024-01-28] MEDS: Amoxicillin/Potassium Clav 875 MG TABLET PO (11:44)
[2024-01-28] MEDS: Insulin Lispro 100 UNIT/ML 3 ML VIAL SUBCUT (11:44)
--- NOTE | 2024-01-28 14:08 | HO.PSYCHPN ---
Subjective Subjective Date of Service: 01/28/24 Reason For Visit: Psychosis Subjective Notes: Conditional Voluntary Interim History: The nursing staff reported the patient's blood pressure medications were changed remains withdrawn guarded, he slept 6 hours. He engaged minimally in conversation and he has some thought blocking. The occupational therapist reported that he attends to some sporadic groups. On interview the patient denies new symptoms but looks internally preoccupied we are increasing Clozaril up to 100 mg p.o. q.h.s. a total of 150 mg daily we are going to follow closely for constipation. Mental Status Exam Mental Status Exam Patient Appearance: Appropriate Patient Orientation: Person and Situation Level of Consciousness: Awake and Appropriate Patient Behavior: Guarded and Passive Mood Description: Withdrawn Affect Description: Constricted Patient Cognition Impaired: Yes Ability to Follow Directions: Good Speech Pattern: Clear Hallucinations: None Delusions: Paranoid Ideation and Ideas of Reference Thought Process: Distracted and Slowed Thinking Thought Content: positive for [place], positive for Poverty of Content and positive for Thought Blocking Judgement: Fair Diagnostics Vital Signs (24Hr): Vital Signs - 24 hr 01/27/24 17:06 01/27/24 20:00 01/27/24 20:45 Temperature 97.2 F Pulse Rate 89 77 77 Respiratory Rate 16 Blood Pressure 139/78 159/85 H 159/85 H Pulse Oximetry 96 Oxygen Delivery Method Room Air 01/28/24 08:00 01/28/24 10:58 Temperature 97.8 F Pulse Rate 80 80 Respiratory Rate 17 Blood Pressure 114/77 114/77 Pulse Oximetry 96 Oxygen Delivery Method Room Air BMI result Body Mass Index 33.9 Labs Labs: Laboratory Results - last 48 hr 01/26/24 01/26/24 01/27/24 16:17 20:00 06:25 POC Glucose 143 H 156 H 139 H 01/27/24 01/27/24 01/27/24 11:14 16:19 20:08 POC Glucose 158 H 149 H 167 H 01/28/24 01/28/24 06:44 11:30 POC Glucose 139 H 215 H Medications Medications Current Medications Acetaminophen (Acetaminophen 325 Mg Tablet) 650 mg PO Q6H PRN PRN Reason: Headache/Pain Mild Scale (1-3) Al Hydroxide/Mg Hydroxide (Magnesium Hydrox/Alum Hydrox 30 Ml Oral.Susp) 10 ml PO TID PRN PRN Reason: Indigestion Albuterol Sulfate (Albuterol Sulfate 90 Mcg 8 Gm Inhaler) 2 puff INHALE Q6H PRN PRN Reason: Shortness Of Breath Or Wheezing Amoxicillin/Clavulanate Potassium (Amoxicillin/Potassium Clav 875 Mg Tablet) 875 mg PO Q12H [facility] Last Admin: 01/28/24 11:44 Dose: 875 mg Atorvastatin Calcium (Atorvastatin Calcium 20 Mg Tablet) 20 mg PO DAILY@1999 [facility] Last Admin: 01/27/24 20:46 Dose: 20 mg Clozapine (Clozapine 25 Mg Tablet) 50 mg PO DAILY [facility] Last Admin: 01/28/24 10:59 Dose: 50 mg Clozapine (Clozapine 100 Mg Tablet) 100 mg PO BEDTIME [facility] Docusate Sodium (Docusate Sodium 100 Mg Capsule) 100 mg PO BID@0800,1999 [facility] Last Admin: 01/28/24 10:58 Dose: 100 mg Glucose (Glucose Gel 15 Gm Gel..Gram.) 15 gm PO Q15M PRN; Protocol PRN Reason: per Hypoglycemia Standing Ord. Insulin Human Lispro (Insulin Lispro 100 Unit/Ml 3 Ml Vial) 0 unit SUBCUT QIDACHS [facility]; Protocol Last Admin: 01/28/24 11:44 Dose: 4 unit Lurasidone HCl (Lurasidone Hcl 20 Mg Tablet) 60 mg PO DAILY@1800 [facility] Last Admin: 01/27/24 17:07 Dose: 60 mg Magnesium Hydroxide (Milk Of Magnesia 30 Ml Oral.Susp) 30 ml PO DAILY PRN PRN Reason: Constipation Magnesium Hydroxide (Milk Of Magnesia 30 Ml Oral.Susp) 30 ml PO DAILY PRN PRN Reason: Constipation Metoprolol Tartrate (Metoprolol Tartrate 25 Mg Tablet) 25 mg PO QID [facility]; Protocol Last Admin: 01/28/24 10:58 Dose: 25 mg Nicotine (Nicotine 21 Mg Patch.Td24) 21 mg TRANSDERMA DAILY PRN PRN Reason: smoking cessation Nicotine Polacrilex (Nicotine Polacrilex 2 Mg Gum) 4 mg BUCCAL Q2H PRN PRN Reason: Nicotine Cravings Nitroglycerin (Nitroglycerin 0.4 Mg Tab.Subl) 0.4 mg SUBLINGUAL Q5MX3 PRN PRN Reason: Chest Pain Omeprazole (Omeprazole 20 Mg Capsule.Dr) 20 mg PO BID@0630,1630 [facility] Last Admin: 01/28/24 05:56 Dose: 20 mg Polyethylene Glycol (Polyethylene Glycol 3350 17 Gm Powd.Pack) 17 gm PO DAILY [facility] Last Admin: 01/28/24 10:58 Dose: 17 gm Polyethylene Glycol (Polyethylene Glycol 3350 17 Gm Powd.Pack) 17 gm PO DAILY PRN PRN Reason: Constipation Senna/Docusate Sodium (Sennosides/Docusate Sodium Tablet) 2 tab PO DAILY [facility] Last Admin: 01/28/24 10:58 Dose: 2 tab Tamsulosin HCl (Tamsulosin Hcl 0.4 Mg Capsule) 0.4 mg PO DAILY@2000 [facility] Last Admin: 01/27/24 20:46 Dose: 0.4 mg Trazodone HCl (Trazodone Hcl 50 Mg Tablet) 50 mg PO BEDTIME [facility] Last Admin: 01/27/24 20:46 Dose: 50 mg Vitamin D (Cholecalciferol (Vitamin D3) 25 Mcg Tablet) 25 mcg PO DAILY@0800 [facility] Last Admin: 01/28/24 10:58 Dose: 25 mcg Allergies Allergies Allergy/AdvReac Type Severity Reaction Status Date / Time lithium [[place]] Allergy Severe Toxicity Verified 01/10/24 05:05 thiothixene Allergy Severe Swelling Verified 01/10/24 05:05 benztropine Allergy Unknown benztropine Verified 12/30/23 15:59 mesylate- unknown gabapentin [From NEURONTIN] Allergy Unknown Unknown Verified 01/10/24 05:05 fluphenazine [From Prolixin] Allergy Unknown Verified 01/10/24 05:04 barium sulfate AdvReac Intermediate Nausea and Verified 01/10/24 05:05 [BARIUM SULFATE] Vomiting haloperidol AdvReac Intermediate Muscle Verified 01/10/24 05:05 tension in legs diphenhydramine AdvReac Unknown urinary Verified 01/10/24 05:05 [From Benadryl] retention Assessment & Plan Assessment & Plan (1) Schizoaffective disorder: Qualifiers: Schizoaffective disorder type: bipolar Qualified Code(s): F25.0 - Schizoaffective disorder, bipolar type Status: Acute Code(s): F25.9 - Schizoaffective disorder, unspecified Plan The patient is elderly male with a past history of schizoaffective disorder home Clozaril who was initially admitted into for psychotic decompensation but transferred to [facility] team after she had a small bowel obstruction that resolved medically and also as. If pneumonia. The patient is now medically cleared and transferring to this facility for psychiatric stabilization. Plan 1. Gather collateral information. 2. We will continue Clozaril and keep Latuda 60 mg and reassess. 3. We will continue with medical follow-up. 4. We will keep on 15 minutes checks since the patient is able to contract for safety 5. On January 27 we are increasing Clozaril up to 50 mg q.a.m. and 100 mg p.o. q.h.s.. Reason for continued inpatient stay Substantial Risk for: inability to function, rapid decompensation and med/psych decompensation Time Spent With Patient Time: Total time managing care of this patient today __20__ minutes.
[2024-01-28 14:55] VITALS: BP 143/82; PULSE 84
[2024-01-28 16:11] LABS: Glucose, Whole Blood 135 mg/dL (60-115)
[2024-01-28 16:22] VITALS: BP 126/88; PULSE 82
[2024-01-28] MEDS: Lurasidone HCl 20 MG TABLET 60 MG PO (18:22)
[2024-01-28 20:00] VITALS: BP 118/60; PULSE 81; RESP 18; TEMP 36.2; O2SAT 92
[2024-01-28 20:21] LABS: Glucose, Whole Blood 135 mg/dL (60-115)
[2024-01-28] MEDS: Atorvastatin Calcium 20 MG TABLET PO (21:16)
[2024-01-28] MEDS: cloZAPine 100 MG TABLET PO (21:17)
[2024-01-28] MEDS: Tamsulosin HCL 0.4 MG CAPSULE PO (21:17)
[2024-01-28] MEDS: traZODone HCL 50 MG TABLET PO (21:18)
[2024-01-29] MEDS: Amoxicillin/Potassium Clav 875 MG TABLET PO ×3 (00:16→22:42)
[2024-01-29] MEDS: Omeprazole 20 MG CAPSULE.DR PO ×2 (05:53→16:49)
[2024-01-29 06:12] LABS: Glucose, Whole Blood 169 mg/dL (60-115)
[2024-01-29 07:52] VITALS: BP 131/72; PULSE 98; RESP 17; O2SAT 97
[2024-01-29] MEDS: Sennosides/Docusate Sodium TABLET 2 TAB PO (07:53)
[2024-01-29] MEDS: Cholecalciferol (Vitamin D3) 25 MCG TABLET PO (07:54)
[2024-01-29] MEDS: cloZAPine 25 MG TABLET 50 MG PO (07:54)
[2024-01-29] MEDS: Docusate Sodium 100 MG CAPSULE PO ×2 (07:54→20:56)
[2024-01-29] MEDS: Metoprolol Tartrate 25 MG TABLET PO ×4 (07:54→20:57)
[2024-01-29] MEDS: Insulin Lispro 100 UNIT/ML 3 ML VIAL SUBCUT ×2 (07:55→11:45)
[2024-01-29 09:06] LABS: Neut%MD 69.1 %; WBCANC 8.7 X10*3/uL
[2024-01-29 11:20] LABS: Glucose, Whole Blood 163 mg/dL (60-115)
--- NOTE | 2024-01-29 12:00 | P.PNPSI_ITS ---
Subjective Subjective Date of Service: 01/29/24 Reason For Visit: Psychosis Subjective Notes: Conditional Voluntary Interim History: Pt slept most of the night. He does use NC 2L at bedtime due to JUDY. Pt initially asking about discharge but later stating that he does not feel safe nor happy about retuning to his apartment. He reports he is not doing well. He denies suicidal ideation, although he states sometimes I do get those thoughts. thought process somewhat disorganized and difficult to follow. No behavioral concerns. Pt taking medications as prescribed. Review of Systems Review of Systems Yes all other systems are reviewed and are negative Mental Status Exam Mental Status Exam Patient Appearance: Appropriate Patient Orientation: Person and Situation Level of Consciousness: Awake and Appropriate Patient Behavior: Guarded and Passive Mood Description: Withdrawn Affect Description: Constricted Patient Cognition Impaired: Yes Ability to Follow Directions: Good Speech Pattern: Clear Diagnostics Vital Signs (24Hr): Vital Signs - 24 hr 01/28/24 14:55 01/28/24 16:22 01/28/24 20:00 Temperature 97.2 F Pulse Rate 84 82 81 Respiratory Rate 18 Blood Pressure 143/82 H 126/88 118/60 Pulse Oximetry 92 Oxygen Delivery Method Room Air 01/29/24 07:52 Temperature Pulse Rate 98 Respiratory Rate 17 Blood Pressure 131/72 Pulse Oximetry 97 Oxygen Delivery Method Room Air BMI result Body Mass Index 33.9 Labs Labs: Laboratory Results - last 48 hr 01/27/24 01/27/24 01/28/24 16:19 20:08 06:44 Absolute Neuts (auto) POC Glucose 149 H 167 H 139 H 01/28/24 01/28/24 01/28/24 11:30 16:03 20:15 Absolute Neuts (auto) POC Glucose 215 H 135 H 135 H 01/29/24 01/29/24 01/29/24 06:06 09:01 11:16 Absolute Neuts (auto) 6.0 POC Glucose 169 H 163 H Medications Medications Current Medications Acetaminophen (Acetaminophen 325 Mg Tablet) 650 mg PO Q6H PRN PRN Reason: Headache/Pain Mild Scale (1-3) Al Hydroxide/Mg Hydroxide (Magnesium Hydrox/Alum Hydrox 30 Ml Oral.Susp) 10 ml PO TID PRN PRN Reason: Indigestion Albuterol Sulfate (Albuterol Sulfate 90 Mcg 8 Gm Inhaler) 2 puff INHALE Q6H PRN PRN Reason: Shortness Of Breath Or Wheezing Amoxicillin/Clavulanate Potassium (Amoxicillin/Potassium Clav 875 Mg Tablet) 875 mg PO Q12H REPLACED BY [facility] Last Admin: 01/29/24 11:44 Dose: 875 mg Atorvastatin Calcium (Atorvastatin Calcium 20 Mg Tablet) 20 mg PO DAILY@1999 REPLACED BY [facility] Last Admin: 01/28/24 21:21 Dose: Not Given Clozapine (Clozapine 25 Mg Tablet) 50 mg PO DAILY REPLACED BY [facility] Last Admin: 01/29/24 07:54 Dose: 50 mg Clozapine (Clozapine 100 Mg Tablet) 100 mg PO BEDTIME REPLACED BY [facility] Last Admin: 01/28/24 21:17 Dose: 100 mg Docusate Sodium (Docusate Sodium 100 Mg Capsule) 100 mg PO BID@0800,1999 REPLACED BY [facility] Last Admin: 01/29/24 07:54 Dose: 100 mg Glucose (Glucose Gel 15 Gm Gel..Gram.) 15 gm PO Q15M PRN; Protocol PRN Reason: per Hypoglycemia Standing Ord. Insulin Human Lispro (Insulin Lispro 100 Unit/Ml 3 Ml Vial) 0 unit SUBCUT QIDACHS REPLACED BY [facility]; Protocol Last Admin: 01/29/24 11:45 Dose: 2 unit Lurasidone HCl (Lurasidone Hcl 20 Mg Tablet) 60 mg PO DAILY@1800 REPLACED BY [facility] Last Admin: 01/28/24 18:22 Dose: 60 mg Magnesium Hydroxide (Milk Of Magnesia 30 Ml Oral.Susp) 30 ml PO DAILY PRN PRN Reason: Constipation Magnesium Hydroxide (Milk Of Magnesia 30 Ml Oral.Susp) 30 ml PO DAILY PRN PRN Reason: Constipation Metoprolol Tartrate (Metoprolol Tartrate 25 Mg Tablet) 25 mg PO QID REPLACED BY [facility]; Protocol Last Admin: 01/29/24 07:54 Dose: 25 mg Nicotine (Nicotine 21 Mg Patch.Td24) 21 mg TRANSDERMA DAILY PRN PRN Reason: smoking cessation Nicotine Polacrilex (Nicotine Polacrilex 2 Mg Gum) 4 mg BUCCAL Q2H PRN PRN Reason: Nicotine Cravings Nitroglycerin (Nitroglycerin 0.4 Mg Tab.Subl) 0.4 mg SUBLINGUAL Q5MX3 PRN PRN Reason: Chest Pain Omeprazole (Omeprazole 20 Mg Capsule.Dr) 20 mg PO BID@0630,1630 REPLACED BY [facility] Last Admin: 01/29/24 05:53 Dose: 20 mg Polyethylene Glycol (Polyethylene Glycol 3350 17 Gm Powd.Pack) 17 gm PO DAILY REPLACED BY [facility] Last Admin: 01/29/24 07:58 Dose: Not Given Polyethylene Glycol (Polyethylene Glycol 3350 17 Gm Powd.Pack) 17 gm PO DAILY PRN PRN Reason: Constipation Senna/Docusate Sodium (Sennosides/Docusate Sodium Tablet) 2 tab PO DAILY REPLACED BY [facility] Last Admin: 01/29/24 07:53 Dose: 2 tab Tamsulosin HCl (Tamsulosin Hcl 0.4 Mg Capsule) 0.4 mg PO DAILY@2000 REPLACED BY [facility] Last Admin: 01/28/24 21:22 Dose: Not Given Trazodone HCl (Trazodone Hcl 50 Mg Tablet) 50 mg PO BEDTIME REPLACED BY [facility] Last Admin: 01/28/24 21:18 Dose: 50 mg Vitamin D (Cholecalciferol (Vitamin D3) 25 Mcg Tablet) 25 mcg PO DAILY@0800 REPLACED BY [facility] Last Admin: 01/29/24 07:54 Dose: 25 mcg Allergies Allergies Allergy/AdvReac Type Severity Reaction Status Date / Time lithium [[place]] Allergy Severe Toxicity Verified 01/10/24 05:05 thiothixene Allergy Severe Swelling Verified 01/10/24 05:05 benztropine Allergy Unknown benztropine Verified 12/30/23 15:59 mesylate- unknown gabapentin [From NEURONTIN] Allergy Unknown Unknown Verified 01/10/24 05:05 fluphenazine [From Prolixin] Allergy Unknown Verified 01/10/24 05:04 barium sulfate AdvReac Intermediate Nausea and Verified 01/10/24 05:05 [BARIUM SULFATE] Vomiting haloperidol AdvReac Intermediate Muscle Verified 01/10/24 05:05 tension in legs diphenhydramine AdvReac Unknown urinary Verified 01/10/24 05:05 [From Benadryl] retention Assessment & Plan Assessment & Plan (1) Schizoaffective disorder: Qualifiers: Schizoaffective disorder type: bipolar Qualified Code(s): F25.0 - Schizoaffective disorder, bipolar type Status: Acute Code(s): F25.9 - Schizoaffective disorder, unspecified Plan The patient is elderly male with a past history of schizoaffective disorder home [facility] who was initially admitted into for psychotic decompensation but transferred to [facility] team after she had a small bowel obstruction that resolved medically and also as. If pneumonia. The patient is now medically cleared and transferring to this facility for psychiatric stabilization. Plan 01/28 continue current tx. clozaril increased on 01/27 to 25mg po daily and 100mg po qhs. thought process still disorganized and internally preoccupied. Reason for continued inpatient stay Substantial Risk for: inability to function Time Spent With Patient Time: Total time managing care of this patient today ____ minutes.
[2024-01-29 13:08] VITALS: BP 113/66; PULSE 93
[2024-01-29 13:09] VITALS: BP 113/66; PULSE 93
[2024-01-29 16:25] LABS: Glucose, Whole Blood 105 mg/dL (60-115)
[2024-01-29 17:36] VITALS: BP 144/68; PULSE 81
[2024-01-29] MEDS: Lurasidone HCl 20 MG TABLET 60 MG PO (17:36)
[2024-01-29 20:00] VITALS: BP 121/58; PULSE 84; RESP 16; TEMP 36.2; O2SAT 95
[2024-01-29 20:02] LABS: Glucose, Whole Blood 137 mg/dL (60-115)
[2024-01-29] MEDS: cloZAPine 100 MG TABLET PO (20:56)
[2024-01-29] MEDS: Tamsulosin HCL 0.4 MG CAPSULE PO (20:56)
[2024-01-29] MEDS: Atorvastatin Calcium 20 MG TABLET PO (20:56)
[2024-01-29] MEDS: traZODone HCL 50 MG TABLET PO (21:02)
[2024-01-30] MEDS: Omeprazole 20 MG CAPSULE.DR PO ×2 (05:46→16:37)
[2024-01-30 06:18] LABS: Glucose, Whole Blood 143 mg/dL (60-115)
[2024-01-30 07:58] VITALS: BP 138/68; PULSE 95; RESP 17; TEMP 36.2; O2SAT 96
[2024-01-30 07:59] VITALS: BP 138/68; PULSE 95
[2024-01-30] MEDS: Docusate Sodium 100 MG CAPSULE PO ×2 (07:59→21:19)
[2024-01-30] MEDS: Cholecalciferol (Vitamin D3) 25 MCG TABLET PO (07:59)
[2024-01-30] MEDS: Metoprolol Tartrate 25 MG TABLET PO ×4 (07:59→21:20)
[2024-01-30] MEDS: Sennosides/Docusate Sodium TABLET 2 TAB PO (08:00)
[2024-01-30] MEDS: cloZAPine 25 MG TABLET 50 MG PO (08:00)
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
[2024-01-30 11:34] LABS: Glucose, Whole Blood 145 mg/dL (60-115)
[2024-01-30] MEDS: Amoxicillin/Potassium Clav 875 MG TABLET PO (11:54)
[2024-01-30 12:01] VITALS: BP 138/76; PULSE 91
[2024-01-30 16:35] LABS: Glucose, Whole Blood 160 mg/dL (60-115)
[2024-01-30] MEDS: Insulin Lispro 100 UNIT/ML 3 ML VIAL SUBCUT ×2 (16:36→21:18)
[2024-01-30 17:29] VITALS: BP 140/67; PULSE 80
[2024-01-30] MEDS: Lurasidone HCl 20 MG TABLET 60 MG PO (17:29)
[2024-01-30 20:00] VITALS: BP 110/58; PULSE 80; RESP 16; TEMP 36.3; O2SAT 97
[2024-01-30 20:15] LABS: Glucose, Whole Blood 151 mg/dL (60-115)
[2024-01-30] MEDS: cloZAPine 100 MG TABLET PO (21:19)
[2024-01-30] MEDS: Tamsulosin HCL 0.4 MG CAPSULE PO (21:19)
[2024-01-30 21:20] VITALS: BP 110/58; PULSE 80
[2024-01-30] MEDS: Atorvastatin Calcium 20 MG TABLET PO (21:20)
[2024-01-30] MEDS: traZODone HCL 50 MG TABLET PO (21:21)
[2024-01-31] MEDS: Amoxicillin/Potassium Clav 875 MG TABLET PO ×3 (02:02→23:08)
[2024-01-31] MEDS: Omeprazole 20 MG CAPSULE.DR PO ×2 (05:49→16:30)
[2024-01-31 06:29] LABS: Glucose, Whole Blood 133 mg/dL (60-115)
[2024-01-31 07:00] VITALS: BMI 33.5
[2024-01-31 08:00] VITALS: BP 133/54; PULSE 89; RESP 18; TEMP 36.3; O2SAT 94
[2024-01-31] MEDS: polyethylene glycoL 3350 17 GM POWD.PACK PO (09:04)
[2024-01-31] MEDS: Sennosides/Docusate Sodium TABLET 2 TAB PO (09:05)
[2024-01-31] MEDS: Docusate Sodium 100 MG CAPSULE PO ×2 (09:05→20:52)
[2024-01-31 09:06] VITALS: BP 133/54; PULSE 89
[2024-01-31] MEDS: Cholecalciferol (Vitamin D3) 25 MCG TABLET PO (09:06)
[2024-01-31] MEDS: Metoprolol Tartrate 25 MG TABLET PO ×4 (09:06→20:52)
[2024-01-31] MEDS: cloZAPine 25 MG TABLET 75 MG PO (09:09)
[2024-01-31 11:17] LABS: Glucose, Whole Blood 110 mg/dL (60-115)
--- NOTE | 2024-01-31 14:53 | P.PNPSI_ITS ---
Subjective Subjective Date of Service: 01/31/24 Reason For Visit: Psychosis Subjective Notes: Conditional Voluntary Interim History: The nursing staff reported the patient showed flat affect no changes in his mental status, he has eating well and slept well last night. The social media executive reported that he has verbalized suicidal statements yesterday. On interview the patient looks more alert and awake with a brighter affect, confused at times. We are going to increase his Clozaril in the morning. So far no constipation. Mental Status Exam Mental Status Exam Patient Appearance: Appropriate and Unkempt Patient Orientation: Person and Situation Level of Consciousness: Awake and Appropriate Patient Behavior: Guarded and Passive Mood Description: Withdrawn Affect Description: Constricted Patient Cognition Impaired: Yes Ability to Follow Directions: Good Speech Pattern: Clear Hallucinations: None Delusions: Paranoid Ideation and Ideas of Reference Thought Process: Distracted Thought Content: positive for [place] and positive for Poverty of Content Judgement: Fair Diagnostics Vital Signs (24Hr): Vital Signs - 24 hr 01/30/24 17:29 01/30/24 20:00 01/30/24 21:20 Temperature 97.4 F Pulse Rate 80 80 80 Respiratory Rate 16 Blood Pressure 140/67 H 110/58 L 110/58 L Pulse Oximetry 97 Oxygen Delivery Method Room Air 01/31/24 08:00 01/31/24 09:06 Temperature 97.3 F Pulse Rate 89 89 Respiratory Rate 18 Blood Pressure 133/54 L 133/54 L Pulse Oximetry 94 Oxygen Delivery Method Room Air BMI result Body Mass Index 33.9 Labs Labs: Laboratory Results - last 48 hr 01/29/24 01/29/24 01/30/24 16:21 19:56 06:11 POC Glucose 105 137 H 143 H 01/30/24 01/30/24 01/30/24 11:26 16:32 20:00 POC Glucose 145 H 160 H 151 H 01/31/24 01/31/24 05:55 11:13 POC Glucose 133 H 110 Medications Medications Current Medications Acetaminophen (Acetaminophen 325 Mg Tablet) 650 mg PO Q6H PRN PRN Reason: Headache/Pain Mild Scale (1-3) Al Hydroxide/Mg Hydroxide (Magnesium Hydrox/Alum Hydrox 30 Ml Oral.Susp) 10 ml PO TID PRN PRN Reason: Indigestion Albuterol Sulfate (Albuterol Sulfate 90 Mcg 8 Gm Inhaler) 2 puff INHALE Q6H PRN PRN Reason: Shortness Of Breath Or Wheezing Amoxicillin/Clavulanate Potassium (Amoxicillin/Potassium Clav 875 Mg Tablet) 875 mg PO Q12H [facility] Last Admin: 01/31/24 14:19 Dose: 875 mg Atorvastatin Calcium (Atorvastatin Calcium 20 Mg Tablet) 20 mg PO DAILY@1999 [facility] Last Admin: 01/30/24 21:20 Dose: 20 mg Clozapine (Clozapine 100 Mg Tablet) 100 mg PO BEDTIME [facility] Last Admin: 01/30/24 21:19 Dose: 100 mg Clozapine (Clozapine 25 Mg Tablet) 75 mg PO DAILY [facility] Last Admin: 01/31/24 09:09 Dose: 75 mg Docusate Sodium (Docusate Sodium 100 Mg Capsule) 100 mg PO BID@0800,1999 [facility] Last Admin: 01/31/24 09:05 Dose: 100 mg Glucose (Glucose Gel 15 Gm Gel..Gram.) 15 gm PO Q15M PRN; Protocol PRN Reason: per Hypoglycemia Standing Ord. Insulin Human Lispro (Insulin Lispro 100 Unit/Ml 3 Ml Vial) 0 unit SUBCUT QIDACHS [facility]; Protocol Last Admin: 01/31/24 12:24 Dose: Not Given Lurasidone HCl (Lurasidone Hcl 20 Mg Tablet) 60 mg PO DAILY@1800 [facility] Last Admin: 01/30/24 17:29 Dose: 60 mg Magnesium Hydroxide (Milk Of Magnesia 30 Ml Oral.Susp) 30 ml PO DAILY PRN PRN Reason: Constipation Magnesium Hydroxide (Milk Of Magnesia 30 Ml Oral.Susp) 30 ml PO DAILY PRN PRN Reason: Constipation Metoprolol Tartrate (Metoprolol Tartrate 25 Mg Tablet) 25 mg PO QID [facility]; Protocol Last Admin: 01/31/24 14:19 Dose: 25 mg Nicotine (Nicotine 21 Mg Patch.Td24) 21 mg TRANSDERMA DAILY PRN PRN Reason: smoking cessation Nicotine Polacrilex (Nicotine Polacrilex 2 Mg Gum) 4 mg BUCCAL Q2H PRN PRN Reason: Nicotine Cravings Nitroglycerin (Nitroglycerin 0.4 Mg Tab.Subl) 0.4 mg SUBLINGUAL Q5MX3 PRN PRN Reason: Chest Pain Omeprazole (Omeprazole 20 Mg Capsule.Dr) 20 mg PO BID@0630,1630 [facility] Last Admin: 01/31/24 05:49 Dose: 20 mg Polyethylene Glycol (Polyethylene Glycol 3350 17 Gm Powd.Pack) 17 gm PO DAILY [facility] Last Admin: 01/31/24 09:04 Dose: 17 gm Polyethylene Glycol (Polyethylene Glycol 3350 17 Gm Powd.Pack) 17 gm PO DAILY PRN PRN Reason: Constipation Senna/Docusate Sodium (Sennosides/Docusate Sodium Tablet) 2 tab PO DAILY [facility] Last Admin: 01/31/24 09:05 Dose: 2 tab Tamsulosin HCl (Tamsulosin Hcl 0.4 Mg Capsule) 0.4 mg PO DAILY@2000 [facility] Last Admin: 01/30/24 21:19 Dose: 0.4 mg Trazodone HCl (Trazodone Hcl 50 Mg Tablet) 50 mg PO BEDTIME [facility] Last Admin: 01/30/24 21:21 Dose: 50 mg Vitamin D (Cholecalciferol (Vitamin D3) 25 Mcg Tablet) 25 mcg PO DAILY@0800 [facility] Last Admin: 01/31/24 09:06 Dose: 25 mcg Allergies Allergies Allergy/AdvReac Type Severity Reaction Status Date / Time lithium [[place]] Allergy Severe Toxicity Verified 01/10/24 05:05 thiothixene Allergy Severe Swelling Verified 01/10/24 05:05 benztropine Allergy Unknown benztropine Verified 12/30/23 15:59 mesylate- unknown gabapentin [From NEURONTIN] Allergy Unknown Unknown Verified 01/10/24 05:05 fluphenazine [From Prolixin] Allergy Unknown Verified 01/10/24 05:04 barium sulfate AdvReac Intermediate Nausea and Verified 01/10/24 05:05 [BARIUM SULFATE] Vomiting haloperidol AdvReac Intermediate Muscle Verified 01/10/24 05:05 tension in legs diphenhydramine AdvReac Unknown urinary Verified 01/10/24 05:05 [From Benadryl] retention Assessment & Plan Assessment & Plan (1) Schizoaffective disorder: Qualifiers: Schizoaffective disorder type: bipolar Qualified Code(s): F25.0 - Schizoaffective disorder, bipolar type Status: Acute Code(s): F25.9 - Schizoaffective disorder, unspecified Plan The patient is elderly male with a past history of schizoaffective disorder home [facility] who was initially admitted into for psychotic decompensation but transferred to [facility] team after she had a small bowel obstruction that resolved medically and also as. If pneumonia. The patient is now medically cleared and transferring to this facility for psychiatric stabilization. Plan 1. Continue Latuda 60 mg p.o. daily. 2. Clozaril 100 mg p.o. q.h.s. and 175 p.o. q.a.m.. 3. Continue rest the same Reason for continued inpatient stay Substantial Risk for: inability to function, rapid decompensation and med/psych decompensation Time Spent With Patient Time: Total time managing care of this patient today __20__ minutes.
[2024-01-31 16:25] LABS: Glucose, Whole Blood 117 mg/dL (60-115)
[2024-01-31] MEDS: Lurasidone HCl 20 MG TABLET 60 MG PO (18:51)
[2024-01-31 20:00] VITALS: BP 121/61; PULSE 85; RESP 18; TEMP 36.1; O2SAT 96
[2024-01-31 20:14] LABS: Glucose, Whole Blood 152 mg/dL (60-115)
[2024-01-31 20:52] VITALS: BP 121/61; PULSE 85
[2024-01-31] MEDS: Atorvastatin Calcium 20 MG TABLET PO (20:53)
[2024-01-31] MEDS: traZODone HCL 50 MG TABLET PO (20:53)
[2024-01-31] MEDS: Insulin Lispro 100 UNIT/ML 3 ML VIAL SUBCUT (20:53)
[2024-01-31] MEDS: cloZAPine 100 MG TABLET PO (20:55)
[2024-02-01] MEDS: Omeprazole 20 MG CAPSULE.DR PO ×2 (05:56→16:35)
[2024-02-01 06:39] LABS: Glucose, Whole Blood 146 mg/dL (60-115)
[2024-02-01 08:00] VITALS: BP 100/55; PULSE 90; RESP 18; TEMP 36.2; O2SAT 98
[2024-02-01] MEDS: Docusate Sodium 100 MG CAPSULE PO ×2 (09:19→21:15)
[2024-02-01] MEDS: polyethylene glycoL 3350 17 GM POWD.PACK PO (09:19)
[2024-02-01] MEDS: cloZAPine 25 MG TABLET 75 MG PO (09:19)
[2024-02-01 09:20] VITALS: BP 110/53; PULSE 82
[2024-02-01] MEDS: Metoprolol Tartrate 25 MG TABLET PO ×4 (09:20→22:29)
[2024-02-01] MEDS: Sennosides/Docusate Sodium TABLET 2 TAB PO (09:20)
[2024-02-01] MEDS: Cholecalciferol (Vitamin D3) 25 MCG TABLET PO (09:21)
[2024-02-01 11:28] LABS: Glucose, Whole Blood 136 mg/dL (60-115)
[2024-02-01] MEDS: Amoxicillin/Potassium Clav 875 MG TABLET PO (11:31)
--- NOTE | 2024-02-01 12:13 | HO.PSYCHPN ---
Subjective Subjective Date of Service: 02/01/24 Reason For Visit: Psychosis Subjective Notes: Conditional Voluntary Interim History: The nursing staff reported the patient has not attend to any groups but his appetite is normal. He has been fully compliant with treatment but he looks internally preoccupied. On interview the patient denies hallucinations or delusions he looks internally preoccupied at times. Mental Status Exam Mental Status Exam Patient Appearance: Appropriate Patient Orientation: Person and Situation Level of Consciousness: Awake Patient Behavior: Guarded and Passive Mood Description: Withdrawn Affect Description: Blunted Patient Cognition Impaired: Yes Ability to Follow Directions: Good Speech Pattern: Clear Hallucinations: None Delusions: Paranoid Ideation and Ideas of Reference Thought Process: Slowed Thinking Thought Content: positive for [place], positive for Poverty of Content and positive for Thought Blocking Diagnostics Vital Signs (24Hr): Vital Signs - 24 hr 01/31/24 20:00 01/31/24 20:52 02/01/24 08:00 Temperature 97.0 F 97.2 F Pulse Rate 85 85 90 Respiratory Rate 18 18 Blood Pressure 121/61 121/61 100/55 L Pulse Oximetry 96 98 Oxygen Delivery Method Room Air Room Air 02/01/24 09:20 Temperature Pulse Rate 82 Respiratory Rate Blood Pressure 110/53 L Pulse Oximetry Oxygen Delivery Method BMI result Body Mass Index 33.5 Labs Labs: Laboratory Results - last 48 hr 01/30/24 01/30/24 01/31/24 16:32 20:00 05:55 POC Glucose 160 H 151 H 133 H 01/31/24 01/31/24 01/31/24 11:13 16:18 20:00 POC Glucose 110 117 H 152 H 02/01/24 02/01/24 06:20 11:22 POC Glucose 146 H 136 H Medications Medications Current Medications Acetaminophen (Acetaminophen 325 Mg Tablet) 650 mg PO Q6H PRN PRN Reason: Headache/Pain Mild Scale (1-3) Al Hydroxide/Mg Hydroxide (Magnesium Hydrox/Alum Hydrox 30 Ml Oral.Susp) 10 ml PO TID PRN PRN Reason: Indigestion Albuterol Sulfate (Albuterol Sulfate 90 Mcg 8 Gm Inhaler) 2 puff INHALE Q6H PRN PRN Reason: Shortness Of Breath Or Wheezing Amoxicillin/Clavulanate Potassium (Amoxicillin/Potassium Clav 875 Mg Tablet) 875 mg PO Q12H OZZY Last Admin: 02/01/24 11:31 Dose: 875 mg Atorvastatin Calcium (Atorvastatin Calcium 20 Mg Tablet) 20 mg PO DAILY@1999 [facility] Last Admin: 01/31/24 20:53 Dose: 20 mg Clozapine (Clozapine 100 Mg Tablet) 100 mg PO BEDTIME [facility] Last Admin: 01/31/24 20:55 Dose: 100 mg Clozapine (Clozapine 25 Mg Tablet) 75 mg PO DAILY [facility] Last Admin: 02/01/24 09:19 Dose: 75 mg Docusate Sodium (Docusate Sodium 100 Mg Capsule) 100 mg PO BID@08,1999 [facility] Last Admin: 02/01/24 09:19 Dose: 100 mg Glucose (Glucose Gel 15 Gm Gel..Gram.) 15 gm PO Q15M PRN; Protocol PRN Reason: per Hypoglycemia Standing Ord. Insulin Human Lispro (Insulin Lispro 100 Unit/Ml 3 Ml Vial) 0 unit SUBCUT QIDACHS COUNT [facility]CLUDES [facility]; Protocol Last Admin: 02/01/24 11:29 Dose: Not Given Lurasidone HCl (Lurasidone Hcl 20 Mg Tablet) 60 mg PO DAILY@1800 [facility] Last Admin: 01/31/24 18:51 Dose: 60 mg Magnesium Hydroxide (Milk Of Magnesia 30 Ml Oral.Susp) 30 ml PO DAILY PRN PRN Reason: Constipation Magnesium Hydroxide (Milk Of Magnesia 30 Ml Oral.Susp) 30 ml PO DAILY PRN PRN Reason: Constipation Metoprolol Tartrate (Metoprolol Tartrate 25 Mg Tablet) 25 mg PO QID [facility]; Protocol Last Admin: 02/01/24 09:20 Dose: 25 mg Nicotine (Nicotine 21 Mg Patch.Td24) 21 mg TRANSDERMA DAILY PRN PRN Reason: smoking cessation Nicotine Polacrilex (Nicotine Polacrilex 2 Mg Gum) 4 mg BUCCAL Q2H PRN PRN Reason: Nicotine Cravings Nitroglycerin (Nitroglycerin 0.4 Mg Tab.Subl) 0.4 mg SUBLINGUAL Q5MX3 PRN PRN Reason: Chest Pain Omeprazole (Omeprazole 20 Mg Capsule.Dr) 20 mg PO BID@0630,1630 [facility] Last Admin: 02/01/24 05:56 Dose: 20 mg Polyethylene Glycol (Polyethylene Glycol 3350 17 Gm Powd.Pack) 17 gm PO DAILY COUNT [facility]CLUDES [facility] Last Admin: 02/01/24 09:19 Dose: 17 gm Polyethylene Glycol (Polyethylene Glycol 3350 17 Gm Powd.Pack) 17 gm PO DAILY PRN PRN Reason: Constipation Senna/Docusate Sodium (Sennosides/Docusate Sodium Tablet) 2 tab PO DAILY [facility] Last Admin: 02/01/24 09:20 Dose: 2 tab Tamsulosin HCl (Tamsulosin Hcl 0.4 Mg Capsule) 0.4 mg PO DAILY@2000 [facility] Last Admin: 01/31/24 20:56 Dose: Not Given Trazodone HCl (Trazodone Hcl 50 Mg Tablet) 50 mg PO BEDTIME COUNT [facility]CLUDES [facility] Last Admin: 01/31/24 20:53 Dose: 50 mg Vitamin D (Cholecalciferol (Vitamin D3) 25 Mcg Tablet) 25 mcg PO DAILY@0800 [facility] Last Admin: 02/01/24 09:21 Dose: 25 mcg Allergies Allergies Allergy/AdvReac Type Severity Reaction Status Date / Time lithium [[place]] Allergy Severe Toxicity Verified 01/10/24 05:05 thiothixene Allergy Severe Swelling Verified 01/10/24 05:05 benztropine Allergy Unknown benztropine Verified 12/30/23 15:59 mesylate- unknown gabapentin [From NEURONTIN] Allergy Unknown Unknown Verified 01/10/24 05:05 fluphenazine [From Prolixin] Allergy Unknown Verified 01/10/24 05:04 barium sulfate AdvReac Intermediate Nausea and Verified 01/10/24 05:05 [BARIUM SULFATE] Vomiting haloperidol AdvReac Intermediate Muscle Verified 01/10/24 05:05 tension in legs diphenhydramine AdvReac Unknown urinary Verified 01/10/24 05:05 [From Benadryl] retention Assessment & Plan Assessment & Plan (1) Schizoaffective disorder: Qualifiers: Schizoaffective disorder type: bipolar Qualified Code(s): F25.0 - Schizoaffective disorder, bipolar type Status: Acute Code(s): F25.9 - Schizoaffective disorder, unspecified Plan The patient is elderly male with a past history of schizoaffective disorder home [facility] who was initially admitted into for psychotic decompensation but [facility] after she had a small bowel obstruction that resolved medically and also as. If pneumonia. The patient is now medically cleared and transferring to this facility for psychiatric stabilization. Plan 1. Continue Latuda 60 mg p.o. daily. 2. Clozaril 100 mg p.o. q.h.s. and 75 p.o. q.a.m.. 3. Continue rest the same Reason for continued inpatient stay Substantial Risk for: inability to function, rapid decompensation and med/psych decompensation Time Spent With Patient Time: Total time managing care of this patient today __20__ minutes.
[2024-02-01 14:05] VITALS: BP 114/56; PULSE 83
[2024-02-01 16:14] LABS: Glucose, Whole Blood 139 mg/dL (60-115)
[2024-02-01 16:33] VITALS: BP 145/87; PULSE 92
[2024-02-01] MEDS: Lurasidone HCl 20 MG TABLET 60 MG PO (17:18)
[2024-02-01 20:00] VITALS: BP 116/65; PULSE 77; RESP 18; TEMP 36.1; O2SAT 94
[2024-02-01] MEDS: cloZAPine 100 MG TABLET PO (21:14)
[2024-02-01] MEDS: Atorvastatin Calcium 20 MG TABLET PO (21:15)
[2024-02-01] MEDS: traZODone HCL 50 MG TABLET PO (21:16)
[2024-02-01 21:37] LABS: Glucose, Whole Blood 122 mg/dL (60-115)
[2024-02-02] MEDS: Amoxicillin/Potassium Clav 875 MG TABLET PO ×2 (00:07→11:09)
[2024-02-02] MEDS: Omeprazole 20 MG CAPSULE.DR PO ×2 (06:25→16:21)
[2024-02-02 06:41] LABS: Glucose, Whole Blood 146 mg/dL (60-115)
[2024-02-02 08:29] VITALS: BP 147/78; PULSE 93; RESP 17; TEMP 36.4; O2SAT 96
[2024-02-02 08:30] VITALS: BP 147/78; PULSE 93
[2024-02-02] MEDS: Metoprolol Tartrate 25 MG TABLET PO ×4 (08:30→20:37)
[2024-02-02] MEDS: Cholecalciferol (Vitamin D3) 25 MCG TABLET PO (08:31)
[2024-02-02] MEDS: Sennosides/Docusate Sodium TABLET 2 TAB PO (08:31)
[2024-02-02] MEDS: Docusate Sodium 100 MG CAPSULE PO ×2 (08:31→20:37)
[2024-02-02] MEDS: cloZAPine 25 MG TABLET 75 MG PO (08:31)
[2024-02-02 11:19] LABS: Glucose, Whole Blood 131 mg/dL (60-115)
--- NOTE | 2024-02-02 12:31 | P.PNPSI_ITS ---
Subjective Subjective Date of Service: 02/02/24 Reason For Visit: Psychosis Subjective Notes: Conditional Voluntary Interim History: Pt slept through the night. He showed and combed his hair which he had not done in several weeks. He denies SI/HI. He reports feeling safer here, still not sure about returning to . No behavioral concerns. Review of Systems Review of Systems Yes all other systems are reviewed and are negative Mental Status Exam Mental Status Exam Patient Appearance: Appropriate Patient Orientation: Person and Situation Level of Consciousness: Awake Patient Behavior: Guarded and Passive Mood Description: Withdrawn Affect Description: Blunted Patient Cognition Impaired: Yes Ability to Follow Directions: Good Speech Pattern: Clear Diagnostics Vital Signs (24Hr): Vital Signs - 24 hr 02/01/24 14:05 02/01/24 16:33 02/01/24 20:00 Temperature 97.0 F Pulse Rate 83 92 77 Respiratory Rate 18 Blood Pressure 114/56 L 145/87 H 116/65 Pulse Oximetry 94 Oxygen Delivery Method Room Air 02/02/24 08:29 02/02/24 08:30 Temperature 97.6 F Pulse Rate 93 93 Respiratory Rate 17 Blood Pressure 147/78 H 147/78 H Pulse Oximetry 96 Oxygen Delivery Method Room Air BMI result Body Mass Index 33.5 Labs Labs: Laboratory Results - last 48 hr 01/31/24 01/31/24 02/01/24 16:18 20:00 06:20 POC Glucose 117 H 152 H 146 H 02/01/24 02/01/24 02/01/24 11:22 16:01 21:13 POC Glucose 136 H 139 H 122 H 02/02/24 02/02/24 06:33 11:08 POC Glucose 146 H 131 H Medications Medications Current Medications Acetaminophen (Acetaminophen 325 Mg Tablet) 650 mg PO Q6H PRN PRN Reason: Headache/Pain Mild Scale (1-3) Al Hydroxide/Mg Hydroxide (Magnesium Hydrox/Alum Hydrox 30 Ml Oral.Susp) 10 ml PO TID PRN PRN Reason: Indigestion Albuterol Sulfate (Albuterol Sulfate 90 Mcg 8 Gm Inhaler) 2 puff INHALE Q6H PRN PRN Reason: Shortness Of Breath Or Wheezing Amoxicillin/Clavulanate Potassium (Amoxicillin/Potassium Clav 875 Mg Tablet) 875 mg PO Q12H OZZY Last Admin: 02/02/24 11:09 Dose: 875 mg Atorvastatin Calcium (Atorvastatin Calcium 20 Mg Tablet) 20 mg PO DAILY@1999 [facility] Last Admin: 02/01/24 21:15 Dose: 20 mg Clozapine (Clozapine 100 Mg Tablet) 100 mg PO BEDTIME [facility] Last Admin: 02/01/24 21:14 Dose: 100 mg Clozapine (Clozapine 25 Mg Tablet) 75 mg PO DAILY [facility] Last Admin: 02/02/24 08:31 Dose: 75 mg Docusate Sodium (Docusate Sodium 100 Mg Capsule) 100 mg PO BID@0800,1999 [facility] Last Admin: 02/02/24 08:31 Dose: 100 mg Glucose (Glucose Gel 15 Gm Gel..Gram.) 15 gm PO Q15M PRN; Protocol PRN Reason: per Hypoglycemia Standing Ord. Insulin Human Lispro (Insulin Lispro 100 Unit/Ml 3 Ml Vial) 0 unit SUBCUT QIDACHS [facility]; Protocol Last Admin: 02/02/24 11:37 Dose: Not Given Lurasidone HCl (Lurasidone Hcl 20 Mg Tablet) 60 mg PO DAILY@1800 [facility] Last Admin: 02/01/24 17:18 Dose: 60 mg Magnesium Hydroxide (Milk Of Magnesia 30 Ml Oral.Susp) 30 ml PO DAILY PRN PRN Reason: Constipation Magnesium Hydroxide (Milk Of Magnesia 30 Ml Oral.Susp) 30 ml PO DAILY PRN PRN Reason: Constipation Metoprolol Tartrate (Metoprolol Tartrate 25 Mg Tablet) 25 mg PO QID [facility]; Protocol Last Admin: 02/02/24 08:30 Dose: 25 mg Nicotine (Nicotine 21 Mg Patch.Td24) 21 mg TRANSDERMA DAILY PRN PRN Reason: smoking cessation Nicotine Polacrilex (Nicotine Polacrilex 2 Mg Gum) 4 mg BUCCAL Q2H PRN PRN Reason: Nicotine Cravings Nitroglycerin (Nitroglycerin 0.4 Mg Tab.Subl) 0.4 mg SUBLINGUAL Q5MX3 PRN PRN Reason: Chest Pain Omeprazole (Omeprazole 20 Mg Capsule.Dr) 20 mg PO BID@0630,1630 [facility] Last Admin: 02/02/24 06:25 Dose: 20 mg Polyethylene Glycol (Polyethylene Glycol 3350 17 Gm Powd.Pack) 17 gm PO DAILY [facility] Last Admin: 02/02/24 08:32 Dose: Not Given Polyethylene Glycol (Polyethylene Glycol 3350 17 Gm Powd.Pack) 17 gm PO DAILY PRN PRN Reason: Constipation Senna/Docusate Sodium (Sennosides/Docusate Sodium Tablet) 2 tab PO DAILY [facility] Last Admin: 02/02/24 08:31 Dose: 2 tab Tamsulosin HCl (Tamsulosin Hcl 0.4 Mg Capsule) 0.4 mg PO DAILY@2000 [facility] Last Admin: 02/01/24 21:17 Dose: Not Given Trazodone HCl (Trazodone Hcl 50 Mg Tablet) 50 mg PO BEDTIME [facility] Last Admin: 02/01/24 21:16 Dose: 50 mg Vitamin D (Cholecalciferol (Vitamin D3) 25 Mcg Tablet) 25 mcg PO DAILY@0800 [facility] Last Admin: 02/02/24 08:31 Dose: 25 mcg Allergies Allergies Allergy/AdvReac Type Severity Reaction Status Date / Time lithium [[place]] Allergy Severe Toxicity Verified 01/10/24 05:05 thiothixene Allergy Severe Swelling Verified 01/10/24 05:05 benztropine Allergy Unknown benztropine Verified 12/30/23 15:59 mesylate- unknown gabapentin [From NEURONTIN] Allergy Unknown Unknown Verified 01/10/24 05:05 fluphenazine [From Prolixin] Allergy Unknown Verified 01/10/24 05:04 barium sulfate AdvReac Intermediate Nausea and Verified 01/10/24 05:05 [BARIUM SULFATE] Vomiting haloperidol AdvReac Intermediate Muscle Verified 01/10/24 05:05 tension in legs diphenhydramine AdvReac Unknown urinary Verified 01/10/24 05:05 [From Benadryl] retention Assessment & Plan Assessment & Plan (1) Schizoaffective disorder: Qualifiers: Schizoaffective disorder type: bipolar Qualified Code(s): F25.0 - Schizoaffective disorder, bipolar type Status: Acute Code(s): F25.9 - Schizoaffective disorder, unspecified Plan The patient is elderly male with a past history of schizoaffective disorder home [facility] who was initially admitted into for psychotic decompensation but [facility] team after she had a small bowel obstruction that resolved medically and also as. If pneumonia. The patient is now medically cleared and transferring to this facility for psychiatric stabilization. Plan 1. Continue Latuda 60 mg p.o. daily. 2. Clozaril 100 mg p.o. q.h.s. and 75 p.o. q.a.m.. 3. Continue rest the same Reason for continued inpatient stay Substantial Risk for: inability to function Time Spent With Patient Time: Total time managing care of this patient today ____ minutes.
[2024-02-02 13:00] VITALS: BP 138/75; PULSE 86
[2024-02-02 16:21] LABS: Glucose, Whole Blood 121 mg/dL (60-115)
[2024-02-02 17:18] VITALS: BP 130/83; PULSE 86
[2024-02-02] MEDS: Lurasidone HCl 20 MG TABLET 60 MG PO (17:18)
[2024-02-02 20:00] VITALS: BP 135/74; PULSE 70; RESP 18; TEMP 36.3; O2SAT 93
[2024-02-02 20:37] VITALS: BP 135/74; PULSE 70
[2024-02-02] MEDS: cloZAPine 100 MG TABLET PO (20:37)
[2024-02-02] MEDS: traZODone HCL 50 MG TABLET PO (20:37)
[2024-02-02] MEDS: Atorvastatin Calcium 20 MG TABLET PO (20:37)
[2024-02-02 21:08] LABS: Glucose, Whole Blood 122 mg/dL (60-115)
[2024-02-03] MEDS: Amoxicillin/Potassium Clav 875 MG TABLET PO ×3 (00:20→22:04)
[2024-02-03] MEDS: Omeprazole 20 MG CAPSULE.DR PO ×2 (06:25→16:23)
[2024-02-03 06:43] LABS: Glucose, Whole Blood 139 mg/dL (60-115)
[2024-02-03 08:00] VITALS: BP 140/79; PULSE 86; RESP 16; O2SAT 95
[2024-02-03 08:11] VITALS: BP 140/79; PULSE 86
[2024-02-03] MEDS: Sennosides/Docusate Sodium TABLET 2 TAB PO (08:11)
[2024-02-03] MEDS: Metoprolol Tartrate 25 MG TABLET PO ×4 (08:11→20:18)
[2024-02-03] MEDS: cloZAPine 25 MG TABLET 75 MG PO (08:12)
[2024-02-03] MEDS: Cholecalciferol (Vitamin D3) 25 MCG TABLET PO (08:12)
[2024-02-03] MEDS: Docusate Sodium 100 MG CAPSULE PO ×2 (08:12→20:18)
[2024-02-03 11:12] LABS: Glucose, Whole Blood 118 mg/dL (60-115)
[2024-02-03 13:09] VITALS: BP 108/61; PULSE 91
--- NOTE | 2024-02-03 14:51 | HO.PSYCHPN ---
Subjective Subjective Date of Service: 02/03/24 Reason For Visit: Psychosis Interim History: Pt slept through the night. He showed and combed his hair which he had not done in several weeks. He denies SI/HI. He reports feeling safer here, still not sure about returning to . No behavioral concerns. Review of Systems Review of Systems Yes all other systems are reviewed and are negative Mental Status Exam Mental Status Exam Patient Appearance: Appropriate Patient Orientation: Person and Situation Level of Consciousness: Awake Patient Behavior: Guarded and Passive Mood Description: Withdrawn Affect Description: Blunted Patient Cognition Impaired: Yes Ability to Follow Directions: Good Speech Pattern: Clear Diagnostics Vital Signs (24Hr): Vital Signs - 24 hr 02/02/24 17:18 02/02/24 20:00 02/02/24 20:37 Temperature 97.4 F Pulse Rate 86 70 70 Respiratory Rate 18 Blood Pressure 130/83 135/74 135/74 Pulse Oximetry 93 Oxygen Delivery Method Room Air 02/03/24 08:00 02/03/24 08:11 02/03/24 13:09 Temperature Pulse Rate 86 86 91 Respiratory Rate 16 Blood Pressure 140/79 H 140/79 H 108/61 Pulse Oximetry 95 Oxygen Delivery Method Room Air BMI result Body Mass Index 33.5 Labs Labs: Laboratory Results - last 48 hr 02/01/24 02/01/24 02/02/24 16:01 21:13 06:33 POC Glucose 139 H 122 H 146 H 02/02/24 02/02/24 02/02/24 11:08 16:17 20:34 POC Glucose 131 H 121 H 122 H 02/03/24 02/03/24 06:27 11:04 POC Glucose 139 H 118 H Medications Medications Current Medications Acetaminophen (Acetaminophen 325 Mg Tablet) 650 mg PO Q6H PRN PRN Reason: Headache/Pain Mild Scale (1-3) Al Hydroxide/Mg Hydroxide (Magnesium Hydrox/Alum Hydrox 30 Ml Oral.Susp) 10 ml PO TID PRN PRN Reason: Indigestion Albuterol Sulfate (Albuterol Sulfate 90 Mcg 8 Gm Inhaler) 2 puff INHALE Q6H PRN PRN Reason: Shortness Of Breath Or Wheezing Amoxicillin/Clavulanate Potassium (Amoxicillin/Potassium Clav 875 Mg Tablet) 875 mg PO Q12H OZZY Last Admin: 02/03/24 11:05 Dose: 875 mg Atorvastatin Calcium (Atorvastatin Calcium 20 Mg Tablet) 20 mg PO DAILY@1999 [facility] Last Admin: 02/02/24 20:37 Dose: 20 mg Clozapine (Clozapine 100 Mg Tablet) 100 mg PO BEDTIME [facility] Last Admin: 02/02/24 20:37 Dose: 100 mg Clozapine (Clozapine 25 Mg Tablet) 75 mg PO DAILY [facility] Last Admin: 02/03/24 08:12 Dose: 75 mg Docusate Sodium (Docusate Sodium 100 Mg Capsule) 100 mg PO BID@0800,1999 [facility] Last Admin: 02/03/24 08:12 Dose: 100 mg Glucose (Glucose Gel 15 Gm Gel..Gram.) 15 gm PO Q15M PRN; Protocol PRN Reason: per Hypoglycemia Standing Ord. Insulin Human Lispro (Insulin Lispro 100 Unit/Ml 3 Ml Vial) 0 unit SUBCUT QIDACHS [facility]; Protocol Last Admin: 02/03/24 11:09 Dose: Not Given Lurasidone HCl (Lurasidone Hcl 20 Mg Tablet) 60 mg PO DAILY@1800 [facility] Last Admin: 02/02/24 17:18 Dose: 60 mg Magnesium Hydroxide (Milk Of Magnesia 30 Ml Oral.Susp) 30 ml PO DAILY PRN PRN Reason: Constipation Magnesium Hydroxide (Milk Of Magnesia 30 Ml Oral.Susp) 30 ml PO DAILY PRN PRN Reason: Constipation Metoprolol Tartrate (Metoprolol Tartrate 25 Mg Tablet) 25 mg PO QID [facility]; Protocol Last Admin: 02/03/24 13:09 Dose: 25 mg Nicotine (Nicotine 21 Mg Patch.Td24) 21 mg TRANSDERMA DAILY PRN PRN Reason: smoking cessation Nicotine Polacrilex (Nicotine Polacrilex 2 Mg Gum) 4 mg BUCCAL Q2H PRN PRN Reason: Nicotine Cravings Nitroglycerin (Nitroglycerin 0.4 Mg Tab.Subl) 0.4 mg SUBLINGUAL Q5MX3 PRN PRN Reason: Chest Pain Omeprazole (Omeprazole 20 Mg Capsule.Dr) 20 mg PO BID@0630,1630 [facility] Last Admin: 02/03/24 06:25 Dose: 20 mg Polyethylene Glycol (Polyethylene Glycol 3350 17 Gm Powd.Pack) 17 gm PO DAILY [facility] Last Admin: 02/03/24 08:13 Dose: Not Given Polyethylene Glycol (Polyethylene Glycol 3350 17 Gm Powd.Pack) 17 gm PO DAILY PRN PRN Reason: Constipation Senna/Docusate Sodium (Sennosides/Docusate Sodium Tablet) 2 tab PO DAILY [facility] Last Admin: 02/03/24 08:11 Dose: 2 tab Tamsulosin HCl (Tamsulosin Hcl 0.4 Mg Capsule) 0.4 mg PO DAILY@2000 [facility] Last Admin: 02/02/24 20:40 Dose: Not Given Trazodone HCl (Trazodone Hcl 50 Mg Tablet) 50 mg PO BEDTIME [facility] Last Admin: 02/02/24 20:37 Dose: 50 mg Vitamin D (Cholecalciferol (Vitamin D3) 25 Mcg Tablet) 25 mcg PO DAILY@0800 [facility] Last Admin: 02/03/24 08:12 Dose: 25 mcg Allergies Allergies Allergy/AdvReac Type Severity Reaction Status Date / Time lithium [[place]] Allergy Severe Toxicity Verified 01/10/24 05:05 thiothixene Allergy Severe Swelling Verified 01/10/24 05:05 benztropine Allergy Unknown benztropine Verified 12/30/23 15:59 mesylate- unknown gabapentin [From NEURONTIN] Allergy Unknown Unknown Verified 01/10/24 05:05 fluphenazine [From Prolixin] Allergy Unknown Verified 01/10/24 05:04 barium sulfate AdvReac Intermediate Nausea and Verified 01/10/24 05:05 [BARIUM SULFATE] Vomiting haloperidol AdvReac Intermediate Muscle Verified 01/10/24 05:05 tension in legs diphenhydramine AdvReac Unknown urinary Verified 01/10/24 05:05 [From Benadryl] retention Assessment & Plan Assessment & Plan (1) Schizoaffective disorder: Qualifiers: Schizoaffective disorder type: bipolar Qualified Code(s): F25.0 - Schizoaffective disorder, bipolar type Status: Acute Code(s): F25.9 - Schizoaffective disorder, unspecified Plan The patient is elderly male with a past history of schizoaffective disorder home [facility] who was initially admitted into for psychotic decompensation but transferred to [facility] team after she had a small bowel obstruction that resolved medically and also as. If pneumonia. The patient is now medically cleared and transferring to this facility for psychiatric stabilization. Plan 1. Continue Latuda 60 mg p.o. daily. 2. Clozaril 100 mg p.o. q.h.s. and 75 p.o. q.a.m.. 3. Continue rest the same Reason for continued inpatient stay Substantial Risk for: inability to function Time Spent With Patient Time: Total time managing care of this patient today ____ minutes.
[2024-02-03 16:26] LABS: Glucose, Whole Blood 139 mg/dL (60-115)
[2024-02-03 18:06] VITALS: BP 140/77; PULSE 79
[2024-02-03] MEDS: Lurasidone HCl 20 MG TABLET 60 MG PO (18:06)
[2024-02-03 19:57] LABS: Glucose, Whole Blood 186 mg/dL (60-115)
[2024-02-03 20:18] VITALS: BP 145/72; PULSE 92
[2024-02-03] MEDS: cloZAPine 100 MG TABLET PO (20:19)
[2024-02-03] MEDS: Tamsulosin HCL 0.4 MG CAPSULE PO (20:19)
[2024-02-03] MEDS: Atorvastatin Calcium 20 MG TABLET PO (20:19)
[2024-02-03] MEDS: Insulin Lispro 100 UNIT/ML 3 ML VIAL SUBCUT (20:19)
[2024-02-03] MEDS: traZODone HCL 50 MG TABLET PO (20:19)
[2024-02-03 22:27] VITALS: BP 145/72; PULSE 92; RESP 18; TEMP 36.4; O2SAT 92
[2024-02-04] MEDS: Omeprazole 20 MG CAPSULE.DR PO ×2 (05:56→17:47)
[2024-02-04 06:21] LABS: Glucose, Whole Blood 150 mg/dL (60-115)
[2024-02-04 08:37] VITALS: BP 134/62; PULSE 76; RESP 20; TEMP 36.1; O2SAT 94
[2024-02-04] MEDS: Sennosides/Docusate Sodium TABLET 2 TAB PO (08:42)
[2024-02-04] MEDS: cloZAPine 25 MG TABLET 75 MG PO (08:42)
[2024-02-04] MEDS: Cholecalciferol (Vitamin D3) 25 MCG TABLET PO (08:43)
[2024-02-04] MEDS: Metoprolol Tartrate 25 MG TABLET PO ×4 (08:43→20:35)
[2024-02-04] MEDS: Docusate Sodium 100 MG CAPSULE PO ×2 (08:43→20:36)
[2024-02-04] MEDS: polyethylene glycoL 3350 17 GM POWD.PACK PO (08:45)
[2024-02-04] MEDS: Insulin Lispro 100 UNIT/ML 3 ML VIAL SUBCUT ×2 (11:38→20:34)
[2024-02-04 13:01] VITALS: BP 140/66
[2024-02-04 13:22] LABS: Glucose, Whole Blood 197 mg/dL (60-115)
--- NOTE | 2024-02-04 14:37 | HO.PSYCHPN ---
Subjective Subjective Date of Service: 02/04/24 Reason For Visit: Psychosis Subjective Notes: Conditional Voluntary Interim History: The nursing staff reported the patient had shown flat affect he had been pleasant cooperative he was seen more sociable over the weekend. Still his paranoid but able to cope effectively. On interview the patient denies new symptoms. Mental Status Exam Mental Status Exam Patient Appearance: Appropriate Patient Orientation: Person and Situation Level of Consciousness: Awake and Appropriate Patient Behavior: Guarded and Passive Mood Description: Withdrawn Affect Description: Constricted Patient Cognition Impaired: Yes Ability to Follow Directions: Good Speech Pattern: Clear Hallucinations: None Delusions: Paranoid Ideation and Ideas of Reference Thought Process: Distracted and Slowed Thinking Thought Content: positive for [place], positive for Poverty of Content and positive for Thought Blocking Judgement: Fair Diagnostics Vital Signs (24Hr): Vital Signs - 24 hr 02/03/24 18:06 02/03/24 20:18 02/03/24 22:27 Temperature 97.5 F Pulse Rate 79 92 92 Respiratory Rate 18 Blood Pressure 140/77 H 145/72 H 145/72 H Pulse Oximetry 92 Oxygen Delivery Method Room Air 02/04/24 08:37 02/04/24 13:01 Temperature 97.0 F Pulse Rate 76 Respiratory Rate 20 Blood Pressure 134/62 140/66 H Pulse Oximetry 94 Oxygen Delivery Method Room Air BMI result Body Mass Index 33.5 Labs Labs: Laboratory Results - last 48 hr 02/02/24 02/02/24 02/03/24 16:17 20:34 06:27 POC Glucose 121 H 122 H 139 H 02/03/24 02/03/24 02/03/24 11:04 16:19 19:52 POC Glucose 118 H 139 H 186 H 02/04/24 02/04/24 06:15 11:24 POC Glucose 150 H 197 H Medications Medications Current Medications Acetaminophen (Acetaminophen 325 Mg Tablet) 650 mg PO Q6H PRN PRN Reason: Headache/Pain Mild Scale (1-3) Al Hydroxide/Mg Hydroxide (Magnesium Hydrox/Alum Hydrox 30 Ml Oral.Susp) 10 ml PO TID PRN PRN Reason: Indigestion Albuterol Sulfate (Albuterol Sulfate 90 Mcg 8 Gm Inhaler) 2 puff INHALE Q6H PRN PRN Reason: Shortness Of Breath Or Wheezing Atorvastatin Calcium (Atorvastatin Calcium 20 Mg Tablet) 20 mg PO DAILY@1999 [facility] Last Admin: 02/03/24 20:19 Dose: 20 mg Clozapine (Clozapine 100 Mg Tablet) 100 mg PO BEDTIME [facility] Last Admin: 02/03/24 20:19 Dose: 100 mg Clozapine (Clozapine 25 Mg Tablet) 75 mg PO DAILY [facility] Last Admin: 02/04/24 08:42 Dose: 75 mg Docusate Sodium (Docusate Sodium 100 Mg Capsule) 100 mg PO BID@0800,2000 [facility] Last Admin: 02/04/24 08:43 Dose: 100 mg Glucose (Glucose Gel 15 Gm Gel..Gram.) 15 gm PO Q15M PRN; Protocol PRN Reason: per Hypoglycemia Standing Ord. Insulin Human Lispro (Insulin Lispro 100 Unit/Ml 3 Ml Vial) 0 unit SUBCUT QIDACHS [facility]; Protocol Last Admin: 02/04/24 11:38 Dose: 2 unit Lurasidone HCl (Lurasidone Hcl 20 Mg Tablet) 60 mg PO DAILY@1800 [facility] Last Admin: 02/03/24 18:06 Dose: 60 mg Magnesium Hydroxide (Milk Of Magnesia 30 Ml Oral.Susp) 30 ml PO DAILY PRN PRN Reason: Constipation Magnesium Hydroxide (Milk Of Magnesia 30 Ml Oral.Susp) 30 ml PO DAILY PRN PRN Reason: Constipation Metoprolol Tartrate (Metoprolol Tartrate 25 Mg Tablet) 25 mg PO QID [facility]; Protocol Last Admin: 02/04/24 13:01 Dose: 25 mg Nicotine (Nicotine 21 Mg Patch.Td24) 21 mg TRANSDERMA DAILY PRN PRN Reason: smoking cessation Nicotine Polacrilex (Nicotine Polacrilex 2 Mg Gum) 4 mg BUCCAL Q2H PRN PRN Reason: Nicotine Cravings Nitroglycerin (Nitroglycerin 0.4 Mg Tab.Subl) 0.4 mg SUBLINGUAL Q5MX3 PRN PRN Reason: Chest Pain Omeprazole (Omeprazole 20 Mg Capsule.Dr) 20 mg PO BID@0630,1630 [facility] Last Admin: 02/04/24 05:56 Dose: 20 mg Polyethylene Glycol (Polyethylene Glycol 3350 17 Gm Powd.Pack) 17 gm PO DAILY [facility] Last Admin: 02/04/24 08:45 Dose: 17 gm Polyethylene Glycol (Polyethylene Glycol 3350 17 Gm Powd.Pack) 17 gm PO DAILY PRN PRN Reason: Constipation Senna/Docusate Sodium (Sennosides/Docusate Sodium Tablet) 2 tab PO DAILY [facility] Last Admin: 02/04/24 08:42 Dose: 2 tab Tamsulosin HCl (Tamsulosin Hcl 0.4 Mg Capsule) 0.4 mg PO DAILY@2000 [facility] Last Admin: 02/03/24 20:19 Dose: 0.4 mg Trazodone HCl (Trazodone Hcl 50 Mg Tablet) 50 mg PO BEDTIME [facility] Last Admin: 02/03/24 20:19 Dose: 50 mg Vitamin D (Cholecalciferol (Vitamin D3) 25 Mcg Tablet) 25 mcg PO DAILY@0800 [facility] Last Admin: 02/04/24 08:43 Dose: 25 mcg Allergies Allergies Allergy/AdvReac Type Severity Reaction Status Date / Time lithium [[place]] Allergy Severe Toxicity Verified 01/10/24 05:05 thiothixene Allergy Severe Swelling Verified 01/10/24 05:05 benztropine Allergy Unknown benztropine Verified 12/30/23 15:59 mesylate- unknown gabapentin [From NEURONTIN] Allergy Unknown Unknown Verified 01/10/24 05:05 fluphenazine [From Prolixin] Allergy Unknown Verified 01/10/24 05:04 barium sulfate AdvReac Intermediate Nausea and Verified 01/10/24 05:05 [BARIUM SULFATE] Vomiting haloperidol AdvReac Intermediate Muscle Verified 01/10/24 05:05 tension in legs diphenhydramine AdvReac Unknown urinary Verified 01/10/24 05:05 [From Benadryl] retention Assessment & Plan Assessment & Plan (1) Schizoaffective disorder: Qualifiers: Schizoaffective disorder type: bipolar Qualified Code(s): F25.0 - Schizoaffective disorder, bipolar type Status: Acute Code(s): F25.9 - Schizoaffective disorder, unspecified Plan The patient is elderly male with a past history of schizoaffective disorder home [facility] who was initially admitted into for psychotic decompensation but transferred to [facility] team after she had a small bowel obstruction that resolved medically and also as. If pneumonia. The patient is now medically cleared and transferring to this facility for psychiatric stabilization. Plan 1. Continue Latuda 60 mg p.o. daily. 2. Clozaril 100 mg p.o. q.h.s. and 75 p.o. q.a.m.. 3. Continue rest the same Reason for continued inpatient stay Substantial Risk for: inability to function, rapid decompensation and med/psych decompensation Time Spent With Patient Time: Total time managing care of this patient today __20__ minutes.
[2024-02-04 16:09] LABS: Glucose, Whole Blood 150 mg/dL (60-115)
[2024-02-04 17:47] VITALS: BP 133/76
[2024-02-04] MEDS: Lurasidone HCl 20 MG TABLET 60 MG PO (17:47)
[2024-02-04 19:49] LABS: Glucose, Whole Blood 228 mg/dL (60-115)
[2024-02-04 20:00] VITALS: BP 125/58; PULSE 83; RESP 18; TEMP 36.4; O2SAT 97
[2024-02-04 20:35] VITALS: BP 125/58; PULSE 83
[2024-02-04] MEDS: traZODone HCL 50 MG TABLET PO (20:35)
[2024-02-04] MEDS: Atorvastatin Calcium 20 MG TABLET PO (20:35)
[2024-02-04] MEDS: cloZAPine 100 MG TABLET PO (20:37)
[2024-02-05] VITALS (7 sets, daily range): BP systolic 103–150; BP diastolic 60–76; PULSE 74–99; RESP 16; TEMP 36.1–36.3; O2SAT 96–97
[2024-02-05] MEDS: Omeprazole 20 MG CAPSULE.DR PO ×2 (06:21→16:57)
[2024-02-05 06:31] LABS: Glucose, Whole Blood 149 mg/dL (60-115)
[2024-02-05 07:56] LABS: Neut%MD 65.4 %; Neutrophils Absolute Auto 4.6 x10*3/uL (2.0-8.3); WBCANC 7.1 X10*3/uL
[2024-02-05] MEDS: Sennosides/Docusate Sodium TABLET 2 TAB PO (08:07)
[2024-02-05] MEDS: Docusate Sodium 100 MG CAPSULE PO ×2 (08:07→20:34)
[2024-02-05] MEDS: Cholecalciferol (Vitamin D3) 25 MCG TABLET PO (08:07)
[2024-02-05] MEDS: Metoprolol Tartrate 25 MG TABLET PO ×4 (08:07→20:34)
[2024-02-05] MEDS: polyethylene glycoL 3350 17 GM POWD.PACK PO (08:08)
[2024-02-05] MEDS: cloZAPine 25 MG TABLET 75 MG PO (08:08)
[2024-02-05 11:18] LABS: Glucose, Whole Blood 244 mg/dL (60-115)
[2024-02-05] MEDS: Insulin Lispro 100 UNIT/ML 3 ML VIAL SUBCUT ×3 (11:58→20:35)
[2024-02-05 16:25] LABS: Glucose, Whole Blood 188 mg/dL (60-115)
--- NOTE | 2024-02-05 16:46 | P.PNPSI_ITS ---
Subjective Subjective Date of Service: 02/05/24 Reason For Visit: Psychosis Subjective Notes: Conditional Voluntary Interim History: The nursing staff reported the patient had been more organized, still delusional at baseline. The nursing staff also reported the patient had been compliant with treatment. The social work instructor reported that she will be discharged tomorrow at 11:30. On interview the patient denies new symptoms, waiting for discharge. Mental Status Exam Mental Status Exam Patient Appearance: Appropriate Patient Orientation: Person and Situation Level of Consciousness: Awake and Appropriate Patient Behavior: Guarded and Passive Mood Description: Withdrawn Affect Description: Constricted Patient Cognition Impaired: Yes Ability to Follow Directions: Good Speech Pattern: Clear Hallucinations: None Delusions: Paranoid Ideation and Ideas of Reference Thought Process: Distracted and Slowed Thinking Thought Content: positive for [place], positive for Poverty of Content and positive for Thought Blocking Judgement: Poor Diagnostics Vital Signs (24Hr): Vital Signs - 24 hr 02/04/24 17:47 02/04/24 20:00 02/04/24 20:35 Temperature 97.6 F Pulse Rate 83 83 Respiratory Rate 18 Blood Pressure 133/76 125/58 L 125/58 L Pulse Oximetry 97 Oxygen Delivery Method Room Air 02/05/24 08:03 02/05/24 08:07 02/05/24 13:08 Temperature 96.9 F Pulse Rate 87 87 81 Respiratory Rate 16 Blood Pressure 142/71 H 142/71 H 150/76 H Pulse Oximetry 97 Oxygen Delivery Method Room Air 02/05/24 13:13 Temperature Pulse Rate 81 Respiratory Rate Blood Pressure 150/76 H Pulse Oximetry Oxygen Delivery Method BMI result Body Mass Index 33.5 Labs Labs: Laboratory Results - last 48 hr 02/03/24 02/04/24 02/04/24 19:52 06:15 11:24 Absolute Neuts (auto) POC Glucose 186 H 150 H 197 H 02/04/24 02/04/24 02/05/24 16:06 19:38 06:21 Absolute Neuts (auto) POC Glucose 150 H 228 H 149 H 02/05/24 02/05/24 02/05/24 07:50 11:14 16:18 Absolute Neuts (auto) 4.6 POC Glucose 244 H 188 H Medications Medications Current Medications Acetaminophen (Acetaminophen 325 Mg Tablet) 650 mg PO Q6H PRN PRN Reason: Headache/Pain Mild Scale (1-3) Al Hydroxide/Mg Hydroxide (Magnesium Hydrox/Alum Hydrox 30 Ml Oral.Susp) 10 ml PO TID PRN PRN Reason: Indigestion Albuterol Sulfate (Albuterol Sulfate 90 Mcg 8 Gm Inhaler) 2 puff INHALE Q6H PRN PRN Reason: Shortness Of Breath Or Wheezing Atorvastatin Calcium (Atorvastatin Calcium 20 Mg Tablet) 20 mg PO DAILY@1999 [facility] Last Admin: 02/04/24 20:35 Dose: 20 mg Clozapine (Clozapine 100 Mg Tablet) 100 mg PO BEDTIME [facility] Last Admin: 02/04/24 20:37 Dose: 100 mg Clozapine (Clozapine 25 Mg Tablet) 75 mg PO DAILY [facility] Last Admin: 02/05/24 08:08 Dose: 75 mg Docusate Sodium (Docusate Sodium 100 Mg Capsule) 100 mg PO BID@799,1999 [facility] Last Admin: 02/05/24 08:07 Dose: 100 mg Glucose (Glucose Gel 15 Gm Gel..Gram.) 15 gm PO Q15M PRN; Protocol PRN Reason: per Hypoglycemia Standing Ord. Insulin Human Lispro (Insulin Lispro 100 Unit/Ml 3 Ml Vial) 0 unit SUBCUT QIDACHS [facility]; Protocol Last Admin: 02/05/24 11:58 Dose: 4 unit Lurasidone HCl (Lurasidone Hcl 20 Mg Tablet) 60 mg PO DAILY@1800 [facility] Last Admin: 02/04/24 17:47 Dose: 60 mg Magnesium Hydroxide (Milk Of Magnesia 30 Ml Oral.Susp) 30 ml PO DAILY PRN PRN Reason: Constipation Magnesium Hydroxide (Milk Of Magnesia 30 Ml Oral.Susp) 30 ml PO DAILY PRN PRN Reason: Constipation Metoprolol Tartrate (Metoprolol Tartrate 25 Mg Tablet) 25 mg PO QID [facility]; Protocol Last Admin: 02/05/24 13:13 Dose: 25 mg Nicotine (Nicotine 21 Mg Patch.Td24) 21 mg TRANSDERMA DAILY PRN PRN Reason: smoking cessation Nicotine Polacrilex (Nicotine Polacrilex 2 Mg Gum) 4 mg BUCCAL Q2H PRN PRN Reason: Nicotine Cravings Nitroglycerin (Nitroglycerin 0.4 Mg Tab.Subl) 0.4 mg SUBLINGUAL Q5MX3 PRN PRN Reason: Chest Pain Omeprazole (Omeprazole 20 Mg Capsule.Dr) 20 mg PO BID@0630,1630 [facility] Last Admin: 02/05/24 06:21 Dose: 20 mg Polyethylene Glycol (Polyethylene Glycol 3350 17 Gm Powd.Pack) 17 gm PO DAILY [facility] Last Admin: 02/05/24 08:08 Dose: 17 gm Polyethylene Glycol (Polyethylene Glycol 3350 17 Gm Powd.Pack) 17 gm PO DAILY PRN PRN Reason: Constipation Senna/Docusate Sodium (Sennosides/Docusate Sodium Tablet) 2 tab PO DAILY [facility] Last Admin: 02/05/24 08:07 Dose: 2 tab Tamsulosin HCl (Tamsulosin Hcl 0.4 Mg Capsule) 0.4 mg PO DAILY@2000 [facility] Last Admin: 02/04/24 20:42 Dose: Not Given Trazodone HCl (Trazodone Hcl 50 Mg Tablet) 50 mg PO BEDTIME [facility] Last Admin: 02/04/24 20:35 Dose: 50 mg Vitamin D (Cholecalciferol (Vitamin D3) 25 Mcg Tablet) 25 mcg PO DAILY@0800 [facility] Last Admin: 02/05/24 08:07 Dose: 25 mcg Allergies Allergies Allergy/AdvReac Type Severity Reaction Status Date / Time lithium [[place]] Allergy Severe Toxicity Verified 01/10/24 05:05 thiothixene Allergy Severe Swelling Verified 01/10/24 05:05 benztropine Allergy Unknown benztropine Verified 12/30/23 15:59 mesylate- unknown gabapentin [From NEURONTIN] Allergy Unknown Unknown Verified 01/10/24 05:05 fluphenazine [From Prolixin] Allergy Unknown Verified 01/10/24 05:04 barium sulfate AdvReac Intermediate Nausea and Verified 01/10/24 05:05 [BARIUM SULFATE] Vomiting haloperidol AdvReac Intermediate Muscle Verified 01/10/24 05:05 tension in legs diphenhydramine AdvReac Unknown urinary Verified 01/10/24 05:05 [From Benadryl] retention Assessment & Plan Assessment & Plan (1) Schizoaffective disorder: Qualifiers: Schizoaffective disorder type: bipolar Qualified Code(s): F25.0 - Schizoaffective disorder, bipolar type Status: Acute Code(s): F25.9 - Schizoaffective disorder, unspecified Plan The patient is elderly male with a past history of schizoaffective disorder home [facility] who was initially admitted into for psychotic decompensation but transferred to [facility] team after she had a small bowel obstruction that resolved medically and also as. If pneumonia. The patient is now medically cleared and transferring to this facility for psychiatric stabilization. Plan 1. Continue Latuda 60 mg p.o. daily. 2. Clozaril 100 mg p.o. q.h.s. and 75 p.o. q.a.m.. 3. Continue rest the same Reason for continued inpatient stay Substantial Risk for: inability to function, rapid decompensation and med/psych decompensation Time Spent With Patient Time: Total time managing care of this patient today __20__ minutes.
[2024-02-05] MEDS: Lurasidone HCl 20 MG TABLET 60 MG PO (16:57)
[2024-02-05 20:00] LABS: Glucose, Whole Blood 153 mg/dL (60-115)
[2024-02-05] MEDS: traZODone HCL 50 MG TABLET PO (20:34)
[2024-02-05] MEDS: cloZAPine 100 MG TABLET PO (20:34)
[2024-02-05] MEDS: Atorvastatin Calcium 20 MG TABLET PO (20:35)
[2024-02-06] MEDS: Omeprazole 20 MG CAPSULE.DR PO (06:04)
[2024-02-06 06:17] LABS: Glucose, Whole Blood 157 mg/dL (60-115)
--- NOTE | 2024-02-06 06:43 | P.DS_ITS ---
DS: Providers Provider Date of Service: 02/06/24 Date of admission: 01/23/24 14:17 Date of discharge: 02/06/24 Primary care physician: Unknown Physician DS: Diagnosis Discharge Diagnosis (1) Schizoaffective disorder: Status: Acute DS: Medications Discharge Medications Home Medications: Home Medications ?Medication ?Instructions ?Recorded ?Confirmed lorazepam 0.5 mg tablet 0.5 mg PO DAILY@199904/20/23 01/23/24 lorazepam 1 mg tablet 1 mg PO BID@0800,159904/20/23 01/23/24 losartan 25 mg tablet 25 mg PO DAILY@79911/03/23 01/23/24 trazodone 50 mg tablet 50 mg PO DAILY@199911/03/23 01/23/24 furosemide 20 mg tablet 20 mg PO DAILY@79912/31/23 01/23/24 metoprolol succinate 50 mg 50 mg PO BID@0800,199912/31/23 01/23/24 tablet,extended release 24 hr polyethylene glycol 3350 17 17 g PO DAILY PRN Constipation 12/31/23 01/23/24 gram/dose oral powder (Miralax) acetaminophen 650 mg 650 mg PO Q6H PRN Pain, Mild 01/15/24 01/23/24 tablet,extended release olanzapine 5 mg tablet 5 mg PO TID PRN Agitation 01/15/24 01/23/24 trazodone 50 mg tablet 50 mg PO BEDTIME PRN Insomnia 01/15/24 01/23/24 Previous Rx's ?Medication ?Instructions ?Recorded acetaminophen 325 mg tablet 650 mg (2 x 325 mg) PO Q6H PRN 02/05/24 Headache/Pain Mild Scale (1-3) 30 days #90 tabs albuterol sulfate 90 mcg/actuation 2 puff inhalation Q6H PRN 02/05/24 aerosol inhaler Shortness Of Breath Or Wheezing 30 days #1 inhaler aluminum-mag hydroxide-simethicone 10 ml PO TID PRN Indigestion 30 02/05/24 200 mg-200 mg-20 mg/5 mL oral susp days #120 mL aspirin 81 mg tablet,delayed 81 mg PO DAILY@08 30 days #30 02/05/24 release tabs atorvastatin 20 mg tablet 20 mg PO DAILY@1999 30 days #30 02/05/24 tabs cholecalciferol (vitamin D3) 25 25 mcg PO DAILY@0800 30 days #30 02/05/24 mcg (1,000 unit) tablet tabs clozapine 100 mg tablet 100 mg PO BEDTIME 30 days #30 tabs 02/05/24 clozapine 25 mg tablet 75 mg (3 x 25 mg) PO DAILY 30 days 02/05/24 #90 tabs docusate sodium 100 mg capsule 1 cap PO BID@0800,2000 30 days #60 02/05/24 caps insulin lispro 100 unit/mL See Protocol subcut QIDACHS 30 02/05/24 subcutaneous solution (Admelog days #5 mL U-100 Insulin lispro) lurasidone 60 mg tablet 60 mg PO DAILY@1800 30 days #30 02/05/24 tabs metoprolol tartrate 25 mg tablet 25 mg PO QID 30 days #120 tabs 02/05/24 nicotine (polacrilex) 4 mg gum 4 mg buccal Q2H PRN Smoking 02/05/24 Cessation 30 days #60 ea nicotine 21 mg/24 hr daily 1 patch transdermal DAILY PRN 02/05/24 transdermal patch Smoking Cessation 30 days #30 ea nitroglycerin 0.4 mg sublingual 0.4 mg sublingual Q5MX3 PRN Chest 02/05/24 tablet (Nitrostat) Pain 30 days #30 tabs omeprazole 20 mg capsule,delayed 20 mg PO BID@0630,1630 30 days #60 02/05/24 release caps polyethylene glycol 3350 17 gram 17 g PO DAILY 30 days #30 ea 02/05/24 oral powder packet sennosides 8.6 mg-docusate sodium 2 tab PO DAILY 30 days #60 tabs 02/05/24 50 mg tablet (Senna Plus) tamsulosin 0.4 mg capsule 0.4 mg PO DAILY 30 days #30 caps 02/05/24 trazodone 50 mg tablet 50 mg PO BEDTIME 30 days #30 tabs 02/05/24 Mental Status Exam Mental Status Exam Patient Appearance: Appropriate Patient Orientation: Person and Situation Level of Consciousness: Awake and Appropriate Patient Behavior: Guarded and Passive Mood Description: Withdrawn Affect Description: Constricted Patient Cognition Impaired: Yes Ability to Follow Directions: Fair Speech Pattern: Clear Hallucinations: None Delusions: Ideas of Reference Thought Process: Distracted and Slowed Thinking Thought Content: positive for [place], positive for Poverty of Content and positive for Thought Blocking Judgement: Fair Data Data Completed and Pending Completed studies during hospitalization [Text1]: 01/30/24 01/30/24 01/30/24 11:26 16:32 20:00 Absolute Neuts (auto) POC Glucose 145 H 160 H 151 H 01/31/24 01/31/24 01/31/24 05:55 11:13 16:18 Absolute Neuts (auto) POC Glucose 133 H 110 117 H 01/31/24 02/01/24 02/01/24 20:00 06:20 11:22 Absolute Neuts (auto) POC Glucose 152 H 146 H 136 H 02/01/24 02/01/24 02/02/24 16:01 21:13 06:33 Absolute Neuts (auto) POC Glucose 139 H 122 H 146 H 02/02/24 02/02/24 02/02/24 11:08 16:17 20:34 Absolute Neuts (auto) POC Glucose 131 H 121 H 122 H 02/03/24 02/03/24 02/03/24 06:27 11:04 16:19 Absolute Neuts (auto) POC Glucose 139 H 118 H 139 H 02/03/24 02/04/24 02/04/24 19:52 06:15 11:24 Absolute Neuts (auto) POC Glucose 186 H 150 H 197 H 02/04/24 02/04/24 02/05/24 16:06 19:38 06:21 Absolute Neuts (auto) POC Glucose 150 H 228 H 149 H 02/05/24 02/05/24 02/05/24 07:50 11:14 16:18 Absolute Neuts (auto) 4.6 POC Glucose 244 H 188 H 02/05/24 02/06/24 19:45 06:09 Absolute Neuts (auto) POC Glucose 153 H 157 H DS: Summary Hospital Course Hospital Course: The patient is a 59-year-old male with a past history of schizophrenia, Who was transferred from Medicine after being medically ill While he was in Psychiatry. Please see the HPI of the admission note and the discharge plan From the previous admission for further details. On admission, the patient was very psychotic, internally preoccupied, unable to participate in groups. The patient had been on Clozaril for several years But apparently he developed A gastrointestinal obstruction that needed medical treatment. We rechallenged with Clozaril with no side effects. But the total dose of Clozaril had been lowered From 225-175 mg. Also, we added Latuda up to 60 mg p.o. daily. There were no evidence of side effects. The patient is case managed by [facility] and he had been chronically institutionalized. He is chronically psychotic at baseline. At the moment of the discharge, He has some residual psychotic symptoms but no evidence of safety concerns. We coordinate with his primary team in the community For discharge. Time spent discussing smoking cessation with patient: 3 to 10 minutes Status at Discharge Cognitive/behavioral status at discharge: Cognition at baseline Functional status at discharge: independent ambulation Overall status at discharge: patient is progressing back to baseline Time Spent with Patient Time attestation: Total time managing care of this patient today ____ minutes. Time spent: Less than 30 minutes Discharge Plan Discharge Anticipated Discharge Date/Time: 02/06/24 11:00 Patient Disposition: Home, Self-Care Discharge Diagnosis: Schizoaffective disorder Chronic mental illness Referrals: Physician,Nancy Reynolds [Primary Care Provider] - 02/11/24 11:00 am (Your follow up appointment has been scheduled for Sunday February 11, [address] Hodge.) Discharge Medications: New acetaminophen 325 mg Tablet 650 mg PO Q6H PRN (Reason: Headache/Pain Mild Scale (1-3)) 30 Days Qty: 90 0RF nitroglycerin [Nitrostat] 0.4 mg Tablet, Sublingual 0.4 mg sublingual Q5MX3 PRN (Reason: Chest Pain) 30 Days Qty: 30 0RF metoprolol tartrate 25 mg Tablet 25 mg PO QID 30 Days Qty: 120 0RF Protocol: Hold for SBP/HR < HOLD for SBP < : 90 HOLD for HR < : 60 clozapine 100 mg Tablet 100 mg PO BEDTIME 30 Days Qty: 30 0RF clozapine 25 mg Tablet 75 mg PO DAILY 30 Days Qty: 90 0RF lurasidone 60 mg tablet 60 mg PO DAILY@1800 30 Days Qty: 30 0RF trazodone 50 mg Tablet 50 mg PO BEDTIME 30 Days Qty: 30 0RF Continued atorvastatin 20 mg tablet 20 mg PO DAILY@2000 30 Days Qty: 30 0RF polyethylene glycol 3350 17 gram Powder In Packet 17 g PO DAILY 30 Days Qty: 30 0RF sennosides-docusate sodium [Senna Plus] 8.6-50 mg Tablet 2 tab PO DAILY 30 Days Qty: 60 0RF aspirin 81 mg Tablet,Delayed Release (Dr/Ec) 81 mg PO DAILY@0800 30 Days Qty: 30 0RF tamsulosin 0.4 mg Capsule 0.4 mg PO DAILY 30 Days Qty: 30 0RF nicotine (polacrilex) 4 mg Gum 4 mg BUCCAL Q2H PRN (Reason: Smoking Cessation) 30 Days Qty: 60 0RF nicotine 21 mg/24 hr Patch 24 Hour 1 patch TRANSDERMAL DAILY PRN (Reason: Smoking Cessation) 30 Days Qty: 30 0RF docusate sodium 100 mg capsule 1 cap PO BID@0800,1999 30 Days Qty: 60 0RF omeprazole 20 mg Capsule,Delayed Release(Dr/Ec) 20 mg PO BID@0630,1630 30 Days Qty: 60 0RF alum-mag hydroxide-simeth 200-200-20 mg/5 mL Suspension 10 ml PO TID PRN (Reason: Indigestion) 30 Days Qty: 120 0RF Rx Instructions: administer between meals and at bedtime insulin lispro [Admelog U-100 Insulin lispro] 100 unit/mL Solution See Protocol subcut QIDACHS 30 Days Qty: 5 0RF Protocol: Insulin Correction Scale Less than or equal to 110 ---- Give (units): 0 111 to 150 Give (units): 0 151 to 200 Give (units): 2 201 to 250 Give (units): 4 251 to 300 Give (units): 6 301 to 350 Give (units): 8 Greater than 350 Give (units): 10 Call MD if Blood Glucose > : 350 Rx Instructions: Patient on a sliding scale albuterol sulfate 90 mcg/actuation HFA aerosol inhaler 2 puff inhalation Q6H PRN (Reason: Shortness Of Breath Or Wheezing) 30 Days Qty: 1 0RF cholecalciferol (vitamin D3) 25 mcg (1,000 unit) Tablet 25 mcg PO DAILY@0800 30 Days Qty: 30 0RF Discontinued lorazepam 1 mg tablet 1 mg PO BID@0800,1600 lorazepam 0.5 mg Tablet 0.5 mg PO DAILY@2000 losartan 25 mg tablet 25 mg PO DAILY@0800 trazodone 50 mg tablet 50 mg PO DAILY@1999 metoprolol succinate 50 mg tablet extended release 24 hr 50 mg PO BID@0800,2000 furosemide 20 mg tablet 20 mg PO DAILY@0800 Protocol: Hold for SBP< HOLD for SBP < : 90 polyethylene glycol 3350 [Miralax] 17 gram/dose Powder 17 g PO DAILY PRN (Reason: Constipation) trazodone 50 mg Tablet 50 mg PO BEDTIME PRN (Reason: Insomnia) Rx Instructions: MAY REPEAT ONCE acetaminophen 650 mg Tablet Extended Release 650 mg PO Q6H PRN (Reason: Pain, Mild) olanzapine 5 mg Tablet 5 mg PO TID PRN (Reason: Agitation) Discharge Orders: Discharge Order (Routine); Ordered 02/06/24 Ordered By: Jack Miller Diet: Advance to usual diet Activity on Discharge: As tolerated Stand Alone Forms: Patient Portal Discharge page Print Language: Slovenian Care Plan Goals: Care plan goals achieved in this admission. Health Concerns: Continue treatment with primary care physician in the community. Plan of Treatment: Continue outpatient providers with regular providers. Assessment: Elderly male with a past history of schizoaffective disorder who decompensate After having an abdominal obstruction Most likely induced by high dose of Clozaril. He was medically treated and transferred to this facility for continuation of care. He was rechallenged On Clozaril with no evidence of side effects. At this moment at baseline, no safety concerns, Ready To be discharged to the community.
[2024-02-06 08:15] VITALS: BP 134/77; PULSE 91; RESP 20; TEMP 36.6; O2SAT 96
[2024-02-06] MEDS: Insulin Lispro 100 UNIT/ML 3 ML VIAL SUBCUT (08:17)
[2024-02-06] MEDS: Cholecalciferol (Vitamin D3) 25 MCG TABLET PO (08:18)
[2024-02-06 08:19] VITALS: BP 134/77; PULSE 91
[2024-02-06] MEDS: Metoprolol Tartrate 25 MG TABLET PO (08:19)
[2024-02-06] MEDS: Docusate Sodium 100 MG CAPSULE PO (08:19)
[2024-02-06] MEDS: cloZAPine 25 MG TABLET 75 MG PO (08:20)
[2024-02-06] MEDS: Sennosides/Docusate Sodium TABLET 2 TAB PO (08:20)
[2024-02-06] MEDS: polyethylene glycoL 3350 17 GM POWD.PACK PO (08:21)
[2024-02-06] MEDS: LORazepam 1 MG TABLET 2 MG PO (09:18)
== END 2024-02-06 11:20 | disposition home or self-care (01) | DRG 885 ==
PROVIDERS: Psychiatry & Neurology Psychiatry; Social Worker; Admitting Provider Psychiatry & Neurology Psychiatry; Visit Provider Psychiatry & Neurology Psychiatry
DX: F25.0 Schizoaffective disorder, bipolar type (principal); R45.851 Suicidal ideations; N40.0 Benign prostatic hyperplasia without lower urinary tract symptoms; G47.33 Obstructive sleep apnea (adult) (pediatric); E11.9 Type 2 diabetes mellitus without complications; Z99.81 Dependence on supplemental oxygen; Z79.4 Long term (current) use of insulin; Z87.891 Personal history of nicotine dependence; Z79.899 Other long term (current) 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
CPT/HCPCS: 36415; 82947; 84484; 85048; 93005

== ENCOUNTER 2024-01-23 14:17 | Outpatient (BNV) | payer OTHER, SELFPAY | END 2024-01-23 18:49 | PROVIDERS: Admitting Provider Psychiatry & Neurology Psychiatry; Visit Provider Internal Medicine | DX: R00.0 Tachycardia, unspecified (principal); I45.81 Long QT syndrome | CPT/HCPCS: 93010 ==

== ENCOUNTER → 2024-01-23 14:17 | Outpatient (BNV) | payer OTHER, SELFPAY | PROVIDERS: Admitting Provider Psychiatry & Neurology Psychiatry; Visit Provider Psychiatry & Neurology Psychiatry | DX: F25.0 Schizoaffective disorder, bipolar type (principal) | CPT/HCPCS: 90792; 99231; 99232; 99238 ==

== ENCOUNTER 2024-02-12 08:45 | Emergency (ER) | payer OTHER, SELFPAY ==
--- NOTE | ~2024-02-12 | CT_ITS ---
EXAMINATION: CT HEAD WITHOUT CONTRAST CLINICAL INFORMATION: Fall. Head strike COMPARISON: 01/17/2024 TECHNIQUE: Contiguous axial imaging was performed from the skull base to vertex without intravenous administration of contrast. This CT examination was performed using dose optimization techniques as appropriate, variously including the following: *Automated exposure control *Adjustment of mA and/or kV according to patient size (this includes techniques or standardized protocols for targeted exams where dose is matched to indication/reason for exam; i.e. extremities or head) *Use of iterative reconstruction technique DLP: 786 mGy-cm FINDINGS: No intra or extra-axial fluid collection, hemorrhage, mass, or mass effect. Very mild bifrontal atrophy is unchanged. There appears to be some exophthalmos. Calvarium intact. CT/CT head/brain wo IV con IMPRESSION: Stable chronic change. Exophthalmos.
[2024-02-12 08:56] VITALS: BP 136/81; PULSE 81; RESP 18; TEMP 36.7; O2SAT 97; BMI 32.3
[2024-02-12 09:02] VITALS: BP 154/84; PULSE 82; O2SAT 96
--- NOTE | 2024-02-12 09:09 | ED.GENADULT ---
HPI - General Adult General Chief complaint: Head Injury Stated complaint: FALL,LACERATION Time Seen by Provider: 02/12/24 09:04 Source: patient Mode of arrival: ambulatory Limitations: no limitations History of Present Illness HPI narrative: 59 yo m with pmhx of HTN, DM, schizoaffective disorder, HOCM presents after fall out of bed and hitting head on his oxygen tank. Patient states he was taking cat nap, and rolled out of bed prior to headstrike. Patient reports he is not on thinners. He denies LOC and any dizziness prior to fall. Denies cp, sob, headache, vision changes, nausea, vomiting, diarrhea, abd pain. Tetanus UTD per patient Related Data Previous Rx's ?Medication ?Instructions ?Recorded acetaminophen 325 mg tablet 650 mg (2 x 325 mg) PO Q6H PRN 02/05/24 Headache/Pain Mild Scale (1-3) 30 days #90 tabs albuterol sulfate 90 mcg/actuation 2 puff inhalation Q6H PRN 02/05/24 aerosol inhaler Shortness Of Breath Or Wheezing 30 days #1 inhaler aluminum-mag hydroxide-simethicone 10 ml PO TID PRN Indigestion 02/05/24 200 mg-200 mg-20 mg/5 mL oral susp days #120 mL aspirin 81 mg tablet,delayed 81 mg PO DAILY@799 30 days #30 02/05/24 release tabs atorvastatin 20 mg tablet 20 mg PO DAILY@1999 30 days #30 02/05/24 tabs cholecalciferol (vitamin D3) 25 25 mcg PO DAILY@0800 30 days #30 02/05/24 mcg (1,000 unit) tablet tabs clozapine 100 mg tablet 100 mg PO BEDTIME 30 days #30 tabs 02/05/24 clozapine 25 mg tablet 75 mg (3 x 25 mg) PO DAILY 30 days 02/05/24 #90 tabs docusate sodium 100 mg capsule 1 cap PO BID@0800,1999 30 days #60 02/05/24 caps insulin lispro 100 unit/mL See Protocol subcut QIDACHS 02/05/24 subcutaneous solution (Admelog days #5 mL U-100 Insulin lispro) lurasidone 60 mg tablet 60 mg PO DAILY@1800 30 days #30 02/05/24 tabs metoprolol tartrate 25 mg tablet 25 mg PO QID 30 days #120 tabs 02/05/24 nicotine (polacrilex) 4 mg gum 4 mg buccal Q2H PRN Smoking 02/05/24 Cessation 30 days #60 ea nicotine 21 mg/24 hr daily 1 patch transdermal DAILY PRN 02/05/24 transdermal patch Smoking Cessation 30 days #30 ea nitroglycerin 0.4 mg sublingual 0.4 mg sublingual Q5MX3 PRN Chest 02/05/24 tablet (Nitrostat) Pain 30 days #30 tabs omeprazole 20 mg capsule,delayed 20 mg PO BID@0630,1630 30 days #60 02/05/24 release caps polyethylene glycol 3350 17 gram 17 g PO DAILY 30 days #30 ea 02/05/24 oral powder packet sennosides 8.6 mg-docusate sodium 2 tab PO DAILY 30 days #60 tabs 02/05/24 50 mg tablet (Senna Plus) tamsulosin 0.4 mg capsule 0.4 mg PO DAILY 30 days #30 caps 02/05/24 trazodone 50 mg tablet 50 mg PO BEDTIME 30 days #30 tabs 02/05/24 Allergies Allergy/AdvReac Type Severity Reaction Status Date / Time lithium [[place]] Allergy Severe Toxicity Verified 02/12/24 08:59 thiothixene Allergy Severe Swelling Verified 02/12/24 08:59 benztropine Allergy Unknown benztropine Verified 02/12/24 08:59 mesylate- unknown gabapentin [From NEURONTIN] Allergy Unknown Unknown Verified 02/12/24 08:59 fluphenazine [From Prolixin] Allergy Unknown Verified 02/12/24 08:59 barium sulfate AdvReac Intermediate Nausea and Verified 02/12/24 08:59 [BARIUM SULFATE] Vomiting haloperidol AdvReac Intermediate Muscle Verified 02/12/24 08:59 tension in legs diphenhydramine AdvReac Unknown urinary Verified 02/12/24 08:59 [From Benadryl] retention Review of Systems Review of Systems: Yes all other systems are reviewed and are negative PMFSH Past Medical History Attestation statement: The following information was validated with the patient. Source: old records reviewed and nursing notes reviewed Medical History Schizoaffective disorder Diabetes mellitus HOCM (hypertrophic obstructive cardiomyopathy) Congestive heart failure COVID-19 Thought disorder Nocturnal hypoxemia Constipation COPD (chronic obstructive pulmonary disease) JUDY (obstructive sleep apnea) Smoker BPH (benign prostatic hyperplasia) Diabetes mellitus Obesity (BMI 30-39.9) Pure hypercholesterolemia Prolonged QT interval Essential hypertension Aggression Hypertension Coronary artery disease CHF (congestive heart failure) Cardiac arrhythmia Myocardial infarction Surgical History History of ankle surgery History of intestinal surgery History of transurethral resection of prostate Family History Family History Father Medical history unknown Mother Medical history unknown Sister Alive and well Social History Social History Household Members: Other Household Members Other:: Roommate Housing: Other Housing Other:: [facility] Do you presently have visiting nurse or other home services: No Alcohol intake: never Comment: 1:1 sitter Patient Tobacco Use Status: Former Tobacco user Quit Date: Pt is unsure if ready to quit Tobacco use type: Cigarette Cigarette Packs Per Day: 0.5 Cigarettes Per Day: 10 Years Smoked: Many Smoked in Last 30 Days: Yes e-Cigarette/Vaping Use: Currently Using Substance Use Type: Unknown Advance Directives: Yes Advance Directives on File: Yes Advance Directives Date on File: 01/14/24 Do you have a plan to hurt others: No Plan service: No Current occupational status: disabled Sexual orientation: Straight/Heterosexual Cognitive needs: Yes Hearing needs: No Vision needs: Yes Physical Exam ED Vital Signs: Vital Signs - 24 hr 02/12/24 08:56 Temperature 98.1 F Pulse Rate 81 Respiratory Rate 18 Blood Pressure 136/81 Pulse Oximetry 97 Oxygen Delivery Method Room Air BMI result Body Mass Index 32.3 vss Appearance: Alert.? Oriented X3.? No acute distress.? Head: Normocephalic, atraumatic, no step-offs or deformities. Small abrasion to right side of forehead above eyebrow. Eyes: Pupils equal, round and reactive to light.? CVS: Normal heart rate and rhythm.? Pulses normal.? Respiratory: No respiratory distress.? Skin: Skin warm and dry.? Normal skin color.? Normal skin turgor.? Extremities: No lower extremity edema.? No calf ttp. 5/5 strength to bilateral upper and lower extremities Back: No midline tenderness, no C-spine tenderness, full range of motion, no CVA tenderness bilaterally Neuro: Oriented X 3.? No motor deficit.? No sensory deficit. CN 2-12 intact . Normal [id number]-[id number], mcmc-zt-[id number] steady tandem gait normal coordination Course Reevaluation(s) Reevaluation #1: Lac not bleeding no need for repair. Time: 12:09 Reevaluation #2: Head CT stable chronic change. Exophthalmos noted. It was also noted on scan from 01/17/2024. This is likely concussion. No intervention for laceration. Educated patient on diagnosis and treatment plan, answered all question, patient verbalizes understanding. At this time patient will be discharged home, advised to return with new or worsening symptoms. Educated on worrisome signs and symptoms and when to return. At this time I feel comfortable discharge home. Time: 12:09 Medical Decision Making Medical Decision Making MDM Narrative: 59 year old male presents w/ head strike on his oxygen tank earlier today was taking cat nap and rolled out of bed. PE- small superficial laceration not bleeding on r side of forehead 0.5 cm. No fb visualized no step offs or deformities. Likely concussion. Unlikely ICH, stroke, posterior stroke. No signs of truama to neck, chest, abd/pelvis. Plan- head ct Differential Diagnosis Differential Diagnoses: The differential diagnosis associated with the presentation includes Likely concussion. Unlikely ICH, stroke, posterior stroke. No signs of truama to neck, chest, abd/pelvis. Admission/Observation Consideration of admission/observation: Escalation of care including admission/observation considered Unlikely Critical Care Time Critical Care Time Critical Care Time: No Discharge Plan Discharge Clinical Impression: Forehead laceration, Fall Patient Disposition: Home, Self-Care Instructions: Laceration (ED), Fall Prevention (ED), Laceration Without Closure (ED) Additional Instructions: Take your medications as prescribed. If you were prescribed antibiotics today, it is important that you take your medication to their entirety, do not skip any doses, do not finish them early. Follow-up with your primary care provider this week. Return to the emergency department with new or worsening symptoms. Such as fevers, chills, chest pain, shortness of breath, nausea, vomiting, dizziness, headache, vision changes, lethargy In case of emergency call 911 CT/CT head/brain wo IV con IMPRESSION: Stable chronic change. Exophthalmos. Prescriptions: No Action acetaminophen 325 mg Tablet 650 mg PO Q6H PRN (Reason: Headache/Pain Mild Scale (1-3)) 30 Days Qty: 90 0RF nitroglycerin [Nitrostat] 0.4 mg Tablet, Sublingual 0.4 mg sublingual Q5MX3 PRN (Reason: Chest Pain) 30 Days Qty: 30 0RF metoprolol tartrate 25 mg Tablet 25 mg PO QID 30 Days Qty: 120 0RF Protocol: Hold for SBP/HR < HOLD for SBP < : 90 HOLD for HR < : 60 clozapine 100 mg Tablet 100 mg PO BEDTIME 30 Days Qty: 30 0RF clozapine 25 mg Tablet 75 mg PO DAILY 30 Days Qty: 90 0RF lurasidone 60 mg tablet 60 mg PO DAILY@1800 30 Days Qty: 30 0RF trazodone 50 mg Tablet 50 mg PO BEDTIME 30 Days Qty: 30 0RF atorvastatin 20 mg tablet 20 mg PO DAILY@1999 30 Days Qty: 30 0RF polyethylene glycol 3350 17 gram Powder In Packet 17 g PO DAILY 30 Days Qty: 30 0RF sennosides-docusate sodium [Senna Plus] 8.6-50 mg Tablet 2 tab PO DAILY 30 Days Qty: 60 0RF aspirin 81 mg Tablet,Delayed Release (Dr/Ec) 81 mg PO DAILY@0800 30 Days Qty: 30 0RF tamsulosin 0.4 mg Capsule 0.4 mg PO DAILY 30 Days Qty: 30 0RF nicotine (polacrilex) 4 mg Gum 4 mg BUCCAL Q2H PRN (Reason: Smoking Cessation) 30 Days Qty: 60 0RF nicotine 21 mg/24 hr Patch 24 Hour 1 patch TRANSDERMAL DAILY PRN (Reason: Smoking Cessation) 30 Days Qty: 30 0RF docusate sodium 100 mg capsule 1 cap PO BID@0800,2000 30 Days Qty: 60 0RF omeprazole 20 mg Capsule,Delayed Release(Dr/Ec) 20 mg PO BID@0630,1630 30 Days Qty: 60 0RF alum-mag hydroxide-simeth 200-200-20 mg/5 mL Suspension 10 ml PO TID PRN (Reason: Indigestion) 30 Days Qty: 120 0RF Rx Instructions: administer between meals and at bedtime insulin lispro [Admelog U-100 Insulin lispro] 100 unit/mL Solution See Protocol subcut QIDACHS 30 Days Qty: 5 0RF Protocol: Insulin Correction Scale Less than or equal to 110 ---- Give (units): 0 111 to 150 Give (units): 0 151 to 200 Give (units): 2 201 to 250 Give (units): 4 251 to 300 Give (units): 6 301 to 350 Give (units): 8 Greater than 350 Give (units): 10 Call MD if Blood Glucose > : 350 Rx Instructions: Patient on a sliding scale albuterol sulfate 90 mcg/actuation HFA aerosol inhaler 2 puff inhalation Q6H PRN (Reason: Shortness Of Breath Or Wheezing) 30 Days Qty: 1 0RF cholecalciferol (vitamin D3) 25 mcg (1,000 unit) Tablet 25 mcg PO DAILY@0800 30 Days Qty: 30 0RF Referrals: ED Physician,Generic [Emergency Provider] - 2 days Stand Alone Forms: Work/School Release Print Language: Frisian
--- NOTE | 2024-02-12 13:02 | PC.NURSE ---
SPOKE WITH STAFF, THEY WILL BE SENDING SOMEONE TO PICK HIM UP IN APPROX.25MIN.
[2024-02-12 13:14] VITALS: BP 136/81; PULSE 81; RESP 18; TEMP 36.7; O2SAT 97
== END 2024-02-12 13:26 | disposition home or self-care (01) ==
PROVIDERS: Emergency Provider Emergency Medicine Emergency Medical Services; PCP Internal Medicine
DX: S01.81XA Laceration without foreign body of other part of head, initial encounter (principal); E11.9 Type 2 diabetes mellitus without complications; I10 Essential (primary) hypertension; W06.XXXA Fall from bed, initial encounter; Y93.9 Activity, unspecified; Y92.9 Unspecified place or not applicable; Y99.9 Unspecified external cause status
CPT/HCPCS: 70450; 99284

== ENCOUNTER → 2024-02-28 13:45 | Outpatient (BNVA) | payer OTHER, SELFPAY | PROVIDERS: PCP Internal Medicine; Visit Provider Nurse Practitioner Family ==

== ENCOUNTER 2024-03-05 12:02 | Outpatient (AMB) | payer OTHER, SELFPAY ==
[2024-03-05 13:26] VITALS: BP 140/90; PULSE 87; TEMP 36.3; O2SAT 97; BMI 36.0
--- NOTE | 2024-03-05 13:26 | MHC.OFFWIV ---
Intake Vital Signs 03/05/24 13:26 Height 5 ft 8 in Weight 237 lb BMI 36.0 BP 140/90 H Blood Pressure Location Lt brachial Position Sitting Pulse 87 Pulse Source Pulse Oximeter Temp 97.4 F Temp Source Temporal Artery Scan Pulse Oximetry (%) 97 Oxygen Delivery Method Room Air Intake Visit Reasons: EP rt hand swollen Intake Note: pt is here today for rt hand swollen started sunday Patient Tobacco Use Status: Former Tobacco user Quit Date: Pt is unsure if ready to quit Allergies lithium [[place]] Allergy (Severe, Verified 03/05/24 13:36) Toxicity thiothixene Allergy (Severe, Verified 03/05/24 13:36) Swelling amoxicillin Allergy (Mild, Verified 03/05/24 13:36) Nose Bleed benztropine Allergy (Unknown, Verified 03/05/24 13:36) benztropine mesylate- unknown gabapentin [From NEURONTIN] Allergy (Unknown, Verified 03/05/24 13:36) Unknown fluphenazine [From Prolixin] Allergy (Verified 03/05/24 13:36) Unknown barium sulfate [BARIUM SULFATE] Adverse Reaction (Intermediate, Verified 03/05/24 13:36) Nausea and Vomiting haloperidol Adverse Reaction (Intermediate, Verified 03/05/24 13:36) Muscle tension in legs diphenhydramine [From Benadryl] Adverse Reaction (Unknown, Verified 03/05/24 13:36) urinary retention Do you need a note to return to daycare/school/sports/work: No HPI HPI Comments History of Present Illness Details 59 y/o male patient who presents to walk in with c/o right hand/wrist swelling since Sunday. Pt is Schizo effective disorder, somehow unreliable historian. He is accompanied by room service manager who assists with history taking. Denies trauma or injury. Pt believes he might be bitten by Spider. Denies pain, fevers or chills. [facility] Medical History Schizoaffective disorder Diabetes mellitus HOCM (hypertrophic obstructive cardiomyopathy) Congestive heart failure COVID-19 Thought disorder Nocturnal hypoxemia Constipation COPD (chronic obstructive pulmonary disease) JUDY (obstructive sleep apnea) Smoker BPH (benign prostatic hyperplasia) Diabetes mellitus Obesity (BMI 30-39.9) Pure hypercholesterolemia Prolonged QT interval Essential hypertension Aggression Hypertension Coronary artery disease CHF (congestive heart failure) Cardiac arrhythmia Myocardial infarction Surgical History History of ankle surgery History of intestinal surgery History of transurethral resection of prostate Family History Father Medical history unknown Mother Medical history unknown Sister Alive and well Social History Household Members: Other Household Members Other:: Roommate Housing: Other Housing Other:: [facility] Do you presently have visiting nurse or other home services: No Alcohol intake: never Comment: 1:1 sitter Patient Tobacco Use Status: Former Tobacco user Quit Date: Pt is unsure if ready to quit Tobacco use type: Cigarette Cigarette Packs Per Day: 0.5 Cigarettes Per Day: 10 Years Smoked: Many e-Cigarette/Vaping Use: Currently Using Substance Use Type: Unknown Advance Directives Date on File: 01/14/24 service: No Current occupational status: disabled Sexual orientation: Straight/Heterosexual Cognitive needs: Yes Hearing needs: No Vision needs: Yes Physical Exam Vital Signs: Last Vital Signs Temp 97.4 F 03/05/24 13:26 Pulse 87 03/05/24 13:26 BP 140/90 H 03/05/24 13:26 Pulse Ox 97 03/05/24 13:26 Oxygen Delivery Method Room Air 03/05/24 13:26 BMI result Body Mass Index 36.0 Extrem Right upper extremity: wrist Details: swelling Location: of the dorsal wrist; no tenderness and no crepitus and Extremity exam: right hand Details: normal capillary refill, normal ROM of fingers and swelling; no tenderness, no unusual warmth, no ecchymosis and no crepitus Left upper extremity: normal to inspection and full ROM Assessment & Plan Assessment & Plan (1) Swelling of right hand: Code(s): M79.89 - Other specified soft tissue disorders Plan: - Xray right hand/wrist - IceHot - Wrapped with Luis - Prednisone x 5 days. Orders: Orders XR hand wrist RT Today M79.89 - Other specified soft tissue disorders Medications: New prednisone 50 mg PO DAILY 5 days 5 tabs 0RF M79.89 - Other specified soft tissue disorders Coding Level of Care Code Est Pt Level 3 (26177) Diagnoses Swelling of right hand M79.89 Time Spent (min) 15
== END 2024-03-05 14:34 | disposition home or self-care (01) ==
PROVIDERS: PCP Internal Medicine; Visit Provider Nurse Practitioner Family
DX: M79.89 Other specified soft tissue disorders (principal)
CPT/HCPCS: 99213

== ENCOUNTER 2024-03-05 14:03 | Outpatient (REF) | payer OTHER, SELFPAY ==
--- NOTE | ~2024-03-05 | XR_ITS ---
EXAMINATION: XR HAND/WRIST, RIGHT CLINICAL INFORMATION: Right hand and wrist swelling COMPARISON: None TECHNIQUE: PA, lateral, and oblique views of the right hand and wrist. FINDINGS: Bone alignment is normal. No fracture or dislocation. Normal joint spaces. There may be a small cyst in the third metacarpal head. There is mild diffuse soft tissue swelling of the hand and wrist. No abnormal air collection or soft tissue foreign body seen. XR/XR hand wrist RT IMPRESSION: Mild diffuse soft tissue swelling of the hand and wrist. No fracture or dislocation seen.
== END 2024-03-05 14:04 | disposition home or self-care (01) ==
LOC: HO.HMGCX 14:03
PROVIDERS: PCP Internal Medicine; Visit Provider Nurse Practitioner Family
DX: M79.89 Other specified soft tissue disorders (principal)
CPT/HCPCS: 73110; 73130

== ENCOUNTER 2024-03-06 13:33 | Outpatient (AMB) | payer OTHER, SELFPAY ==
[2024-03-06 13:39] VITALS: BP 140/68; PULSE 97; O2SAT 98; BMI 36.2
--- NOTE | 2024-03-06 13:39 | A.OFFVIS_ITS ---
Vital Signs 03/06/24 13:39 Height 5 ft 8 in Weight 238 lb BMI 36.2 BP 140/68 H Blood Pressure Location Lt brachial Position Sitting Pulse 97 Pulse Source Pulse Oximeter Pulse Oximetry (%) 98 Oxygen Delivery Method Room Air Intake Visit Reasons: nocturnal hypoxemia Intake Note: pt is here for follow up and states he does get short of breath with walking, oxygen at night 8pm to 7am. Asset Protection Professional Required: No Allergies lithium [[place]] Allergy (Severe, Verified 03/06/24 13:43) Toxicity thiothixene Allergy (Severe, Verified 03/06/24 13:43) Swelling amoxicillin Allergy (Mild, Verified 03/06/24 13:43) Nose Bleed benztropine Allergy (Unknown, Verified 03/06/24 13:43) benztropine mesylate- unknown gabapentin [From NEURONTIN] Allergy (Unknown, Verified 03/06/24 13:43) Unknown fluphenazine [From Prolixin] Allergy (Verified 03/06/24 13:43) Unknown barium sulfate [BARIUM SULFATE] Adverse Reaction (Intermediate, Verified 03/06/24 13:43) Nausea and Vomiting haloperidol Adverse Reaction (Intermediate, Verified 03/06/24 13:43) Muscle tension in legs diphenhydramine [From Benadryl] Adverse Reaction (Unknown, Verified 03/06/24 13:43) urinary retention Do you need a note to return to daycare/school/sports/work: No HPI HPI nocturnal hypoxemia: Details: This gentleman a case of Schizohrenic disorder , lives at intermediate, he is here for his 6 months follow-up because of nocturnal hypoxemia. Navid is grossly obese, he has the obesity related hypoventilation, causing nocturnal hypoxemia which is being treated with O2 2 L/minute. His sleep study was negative for sleep apnea but positive for nocturnal hypoxemia. He does smoke about 5-10 cigarettes a day and has occasional. bouts of cough uses albuterol HFA once in a while. At present he denies any symptoms of cough or wheezing. [facility] Medical History Schizoaffective disorder Diabetes mellitus HOCM (hypertrophic obstructive cardiomyopathy) Congestive heart failure COVID-19 Thought disorder Nocturnal hypoxemia Constipation COPD (chronic obstructive pulmonary disease) JUDY (obstructive sleep apnea) Smoker BPH (benign prostatic hyperplasia) Diabetes mellitus Obesity (BMI 30-39.9) Pure hypercholesterolemia Prolonged QT interval Essential hypertension Aggression Hypertension Coronary artery disease CHF (congestive heart failure) Cardiac arrhythmia Myocardial infarction Surgical History History of ankle surgery History of intestinal surgery History of transurethral resection of prostate Family History Father Medical history unknown Mother Medical history unknown Sister Alive and well Social History Household Members: Other Household Members Other:: Roommate Housing: Other Housing Other:: [facility] Do you presently have visiting nurse or other home services: No Alcohol intake: never Comment: 1:1 sitter Patient Tobacco Use Status: Former Tobacco user Tobacco use type: Cigarette Cigarette Packs Per Day: 0.5 Cigarettes Per Day: 10 Years Smoked: Many e-Cigarette/Vaping Use: Currently Using Substance Use Type: Unknown Advance Directives Date on File: 01/14/24 service: No Current occupational status: disabled Sexual orientation: Straight/Heterosexual Cognitive needs: Yes Hearing needs: No Vision needs: Yes Review of Systems Const All systems reviewed & are unremarkable except as noted in HPI and below Eyes Reports no additional complaints ENT Reports no additional complaints Card Details: Being followed by Cardiology for hypertrophic cardiomyopathy Denies chest pain, Denies irregular heart rhythm, Denies leg edema and Reports dyspnea on exertion (mild) Resp Denies cough, Reports dyspnea on exertion (mild) and Denies wheezing GI Reports no additional complaints Reports erectile dysfunction and Reports other (Being followed for BPH symptoms) Musc Reports no additional complaints Skin/Breast Reports system reviewed and no additional complaints, except as documented Neuro Reports no additional complaints Psych Reports anxiety and Reports mood swings Endo Reports no additional complaints Dilshad/Lymph Reports no additional complaints Aller/Immun Denies wheezing Physical Exam Vital Signs: Last Vital Signs Pulse 97 03/06/24 13:39 BP 140/68 H 03/06/24 13:39 Pulse Ox 98 03/06/24 13:39 Oxygen Delivery Method Room Air 03/06/24 13:39 BMI result Body Mass Index 36.2 Const General: comfortable, no acute distress, alert and awake Orientation/consciousness: patient oriented x3 HEENT Head: Yes normal to inspection General nose exam: No nasal polyps present and No nasal discharge present Face and sinus: Yes sinuses nontender Mouth: oropharynx normal Throat: Yes posterior oropharynx normal Eyes General: appearance normal, both eyes and all related structures Neck Neck: Yes normal visual inspection, Yes no lymphadenopathy, Yes trachea midline and Yes no JVD Thyroid: Thyroid normal Chest Chest palpation & inspection: normal inspection of the chest, normal palpation of entire chest wall and no tenderness Resp Other: Percussion note resonant, breath sounds are slightly distant, but no wheezes or rhonchi are heard. Cardio Palpation: normal PMI Rate: regular rate Rhythm: regular rhythm Heart sounds: no gallops and no murmurs GI Palpation (GI): Soft to palpation, nontender, No hepatosplenomegaly present and no masses Auscultation: normal bowel sounds Back/Spine/Pelvis Thoracic/Lumbar Spine: thoracic and lumbar spine normal to inspection and thoraco-lumbar ROM limited Skin General skin exam: no rashes or lesions noted Neuro General: patient oriented x3, No gait normal (Slightly impaired and slow) and no focal motor deficits Cranial nerves: Yes CN's II-XII intact bilaterally Extrem General: Yes normal to inspection, Yes no clubbing, cyanosis or edema and Yes no calf tenderness Psych Appearance: grossly normal and well kempt Speech and movement: Normal speech and movement present Assessment & Plan Assessment & Plan (1) Nocturnal hypoxemia: Comment: Nocturnal hypoxemia, recorded during his overnight sleep study. Code(s): G47.34 - Idiopathic sleep related nonobstructive alveolar hypoventilation Category: Medical Plan: Continue to use O2 2 L/minute at night (2) Smoker: Comment: Navid lives in a intermediate where most of the resident smoke. that he ends up smoking due to peer pressure. but he smokes only a few cigarettes daily. advised to no more than 1 or 2 cigarettes a day. Code(s): F17.200 - Nicotine dependence, unspecified, uncomplicated Category: Social Hx Plan: SEE BELOW Plan ADVISED TO CUT DOWN THE SMOKING NO MORE THAN 2 CIGARETTES PER DAY Coding Level of Care Code Est Pt Level 3 (79114) Diagnoses Nocturnal hypoxemia G47.34 Smoker F17.200
== END 2024-03-06 13:56 | disposition home or self-care (01) ==
PROVIDERS: PCP Internal Medicine; Visit Provider Internal Medicine
DX: G47.34 Idiopathic sleep related nonobstructive alveolar hypoventilation (principal); F17.200 Nicotine dependence, unspecified, uncomplicated
CPT/HCPCS: 99213

== ENCOUNTER → 2024-03-06 13:33 | Outpatient (BNVA) | payer OTHER, SELFPAY | PROVIDERS: PCP Internal Medicine; Visit Provider Internal Medicine | DX: G47.34 Idiopathic sleep related nonobstructive alveolar hypoventilation (principal); F17.210 Nicotine dependence, cigarettes, uncomplicated | CPT/HCPCS: 99212 ==

== ENCOUNTER 2024-03-25 15:54 | Outpatient (AMB) | payer OTHER, SELFPAY ==
[2024-03-25 16:02] VITALS: BP 130/68; PULSE 114; O2SAT 96; BMI 34.8
--- NOTE | 2024-03-25 16:02 | A.OFFPC_ITS ---
Vital Signs 03/25/24 16:02 Height 5 ft 8 in Weight 229 lb 0.2 oz BMI 34.8 BP 130/68 Blood Pressure Location Lt brachial Position Sitting Pulse 114 H Pulse Source Pulse Oximeter Pulse Oximetry (%) 96 Oxygen Delivery Method Room Air Intake Visit Reasons: [facility] [place] Intake Note: Patient is here for hospital discharge follow up. Patient was discharged from [facility] on 02/[place]. 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 Required: No Allergies lithium [[place]] Allergy (Severe, Verified 03/25/24 16:45) Toxicity thiothixene Allergy (Severe, Verified 03/25/24 16:45) Swelling amoxicillin Allergy (Mild, Verified 03/25/24 16:45) Nose Bleed benztropine Allergy (Unknown, Verified 03/25/24 16:45) benztropine mesylate- unknown gabapentin [From NEURONTIN] Allergy (Unknown, Verified 03/25/24 16:45) Unknown fluphenazine [From Prolixin] Allergy (Verified 03/25/24 16:45) Unknown barium sulfate [BARIUM SULFATE] Adverse Reaction (Intermediate, Verified 03/25 16:45) Nausea and Vomiting haloperidol Adverse Reaction (Intermediate, Verified 03/25/24 16:45) Muscle tension in legs diphenhydramine [From Benadryl] Adverse Reaction (Unknown, Verified 03/25/24 16:45) urinary retention Medication List - Last Reconciled 03/25/24 by Regan Hogue MD acetaminophen 650 mg (2 x 325 mg) PO Q6H PRN 30 days albuterol sulfate 90 mcg/actuation 2 puffs inhalation Q6H PRN 30 days alum-mag hydroxide-simeth 200-200-20 mg/5 mL 10 mL PO TID PRN 30 days aspirin 81 mg PO DAILY@0800 30 days atorvastatin 20 mg PO DAILY@1999 30 days cholecalciferol (vitamin D3) 25 mcg PO DAILY@0800 30 days clozapine 75 mg (3 x 25 mg) PO DAILY 30 days clozapine 100 mg PO BEDTIME 30 days docusate sodium 1 cap PO BID@0800,1999 30 days hydrochlorothiazide 12.5 mg PO DAILY 90 days insulin lispro (Admelog U-100 Insulin lispro) See Protocol units subcut QIDACHS 30 days lurasidone 60 mg PO DAILY@1800 30 days metoprolol tartrate 25 mg See Protocol PO QID 30 days nicotine 1 patch transdermal DAILY PRN 30 days nicotine (polacrilex) 4 mg buccal Q2H PRN 30 days nitroglycerin (Nitrostat) 0.4 mg sublingual Q5MX3 PRN 30 days omeprazole 20 mg PO BID@0630,1630 30 days polyethylene glycol 3350 17 grams PO DAILY 30 days prednisone 50 mg PO DAILY 5 days sennosides-docusate sodium 8.6-50 mg (Senna Plus) 2 tabs PO DAILY 30 days tamsulosin 0.4 mg PO DAILY 30 days testosterone 2 packets transdermal DAILY 30 days trazodone 50 mg PO BEDTIME 30 days Tobacco use date assessed: 03/25/24 Dental Screening Dental Screen Date: 11/12/23 [facility] 02/05 [facility] Details Patient comes in today for his HDF follow up visit He was initially brought to the ER in late December 2023 for increased diarrhea following supposed ingestion of multiple doses of Senna due to increasing constipation on the patient's part He was found to be in JUHI with acute dehydration following laxative use on work up and was subsequently admitted Imaging studies done subsequently also suggested a possible partial SBO, presumably due to his Clozaril, which was held, and patient later started voicing thoughts of suicide (without any definitive plan) He was then referred to and later on transferred to the psychiatry unit for further management once he is medically stable for discharge He was slowly started back on Clozaril, which he has been on for years, but at a reduced dose compared to what he was on prior to his SBO, and he was gradually improving from psychiatry standpoint but patient however later developed AMS, tachypnea and tachycardia while at the psychiatry unit, and he was eventually transferred back to medicine for further evaluation Cardiac work ups were negative and he was diagnosed with acute metabolic encephalopathy with hyponatremia and JUHI He was again managed medically, initially in the ICU, and was later stepped down to the medical floor once he was stabilized He was later discharged back to psychiatry once his medical issues were all resolved and he spent the next couple of weeks having his medications adjusted and titrated All in all, patient spent the last week of December 2023 and all of January 2024 in the hospital, splitting time between the medical floor, ICU and the psychiatry floor He was eventually discharged back home on a lowered dose of Clozaril at 175 mg daily dose and was started additionally on Latuda 60 mg QD He continues to follow up with psychiatry regularly States that he currently feels okay and has had no new issues since being discharged from [facility] a month and a half ago He did have an appointment with cardiology last month for follow up of his HOCM and cardiac issues but appears to have left his appointment then before he was seen by the provider - this was rescheduled to next month on 04/17/[address] Dr[address] Little at the end of last month for pulmonary follow up - was advised to continue on nocturnal oxygen and urged to cut back on his smoking He presently denies any headaches or dizziness Denies any chest pains, no increased SOB No nausea/vomiting, no abdominal pain No change in bowel habits noted [facility] Medical History (Updated 04/01/24 @ 04:02 by Regan Hogue MD) Osteoarthritis GERD without esophagitis Vitamin D deficiency Schizoaffective disorder Diabetes mellitus HOCM (hypertrophic obstructive cardiomyopathy) Congestive heart failure COVID-19 Thought disorder Nocturnal hypoxemia Constipation COPD (chronic obstructive pulmonary disease) JUDY (obstructive sleep apnea) Smoker BPH (benign prostatic hyperplasia) Diabetes mellitus Obesity (BMI 30-39.9) Pure hypercholesterolemia Prolonged QT interval Essential hypertension Aggression Hypertension Coronary artery disease CHF (congestive heart failure) Cardiac arrhythmia Myocardial infarction Surgical History History of ankle surgery History of intestinal surgery History of transurethral resection of prostate Family History Father Medical history unknown Mother Medical history unknown Sister Alive and well Social History Household Members: Other Household Members Other:: Roommate Housing: Other Housing Other:: [facility] Do you presently have visiting nurse or other home services: No Alcohol intake: never Comment: 1:1 sitter Patient Tobacco Use Status: Former Tobacco user Tobacco use type: Cigarette Cigarette Packs Per Day: 0.5 Cigarettes Per Day: 10 Years Smoked: Many e-Cigarette/Vaping Use: Currently Using Substance Use Type: Unknown Advance Directives Date on File: 01/14/24 service: No Current occupational status: disabled Sexual orientation: Straight/Heterosexual Cognitive needs: Yes Hearing needs: No Vision needs: Yes Questionnaire PHQ-9 Over the last 2 weeks, how often have you been bothered by any of the following problems? 1. Little interest or pleasure in doing things: not at all 2. Feeling down, depressed, or hopeless: not at all 3. Trouble falling or staying asleep, or sleeping too much: not at all 4. Feeling tired or having little energy: not at all 5. Poor appetite or overeating: not at all 6. Feeling bad about yourself - or that you are a failure or have let yourself or your family down: not at all 7. Trouble concentrating on things, such as reading the newspaper or watching te levision: not at all 8. Moving or speaking so slowly that other people could have noticed. Or the opposite - being so fidgety or restless that you have been moving around a lot more than usual: not at all 9. Thoughts that you would be better off or of hurting yourself in some way: not at all Total score: 0 Depression Screening Interpretation: Negative (is on Rx) Depression Screening Done: Yes 39257 - PHQ-9 Billing: Yes Source: Developed by Drs. Ga Richard, Rosio Grigsby, Jose Johnson and colleagues, with an educational lulu from [employer]. Thrive Questionnaire Date Thrive assessed: 01/24/24 I am a: Patient What is your living situation today?: I have a steady place to live Within the past 12 months, did the food you bought not last and you didn't have the money to get more?: Never true Within the past 12 months, did you worry whether your food would run out before you got money to buy more?: Never true Do you have trouble paying for medicines?: No Do you have trouble getting transportation to medical appointments?: No Do you have trouble paying your heating and electricity bill?: No Do you have trouble taking care of your child, family member or friend?: No Do you have trouble with day-to-day activities such as bathing, preparing meals, shopping, managing finances, etc.?: No Are you currently unemployed and looking for a job?: No Are you interested in more education?: No Please select the resources that you would like help with: None Currently or been in a relationship where the following occur: no concerns reported THRIVE Score: 0 AUDIT C Alcohol Use Questionnaire (AUDIT-C) 1. How often do you have a drink containing alcohol?: Monthly or less 2. How many drinks containing alcohol do you have on a typical day when you are drinking?: 1 or 2 3. How often do you have six or more drinks on one occasion?: Never Total Score: 1 Score Reviewed/Action Taken: Yes LINN-7 AMB Questionnaire LINN-7 Date LINN - 7 assessed: 11/12/23 Source: Developed by Drs. Ga Richard, Rosio Grigsby, Jose Johnson and colleagues, with an educational lulu from [employer]. Review of Systems Const Denies chills, Denies fatigue, Denies fever(s) and Denies headache(s) ENT Denies dysphagia, Denies dizziness, Denies otalgia, Denies headache(s), Denies neck pain, Denies odynophagia and Denies sore throat Card Denies chest pain, Denies palpitations and Reports dyspnea on exertion (mild) Resp Denies chest congestion, Denies cough, Reports dyspnea on exertion (mild) and Denies wheezing GI Denies abdominal pain, Reports constipation (on and off), Denies dysphagia, Denies heartburn, Denies diarrhea, Denies nausea, Denies odynophagia and Denies vomiting Denies dysuria, Denies nocturia and Denies urinary frequency Musc Reports arthralgias (involving both knees, ankles and feet) and Denies neck pain Skin/Breast Denies rash Neuro Denies dizziness and Denies headache(s) Psych Reports as per HPI Endo Denies fatigue and Denies palpitations Aller/Immun Denies wheezing Physical exam (Primary Care) Vital Signs: Last Vital Signs Pulse 114 H 03/25/24 16:02 BP 130/68 03/25/24 16:02 Pulse Ox 96 03/25/24 16:02 Oxygen Delivery Method Room Air 03/25/24 16:02 BMI result Body Mass Index 34.8 Tobacco/Smoking Status: Tobacco use Status Tobacco use date assessed 03/25/24 03/25/24 16:04 Patient Tobacco Use Status Former Tobacco user 03/25/24 16:04 Tobacco use type Cigarette 03/25/24 16:04 e-Cigarette/Vaping Use Currently Using 03/25/24 16:04 PHQ-9: PHQ-9 Score PHQ-9: Total score 0 03/25/24 16:50 Depression Screening Interpretation: Negative (is on Rx) Thrive Assessment: Date of Thrive Assessment Date Thrive assessed 01/24/24 03/25/24 16:04 Currently or been in a relationship where the following occur: no concerns reported Const General: no acute distress and alert HENMT Ears: TM's normal bilaterally and EAC's normal Throat: Yes posterior oropharynx normal and Yes tonsils normal (no TP congestion noted) Neck Neck: Yes no lymphadenopathy and Yes supple Thyroid: Thyroid normal Resp Auscultation: clear to auscultation bilaterally, no rales and no wheezes Cardio Rate: regular rate Rhythm: regular rhythm Heart sounds: Murmur heart sound present systolic mid, soft and at the left sternal border GI Palpation (GI): Soft to palpation and nontender Auscultation: normal bowel sounds Skin Rashes: no rashes Extrem General: Yes no clubbing, cyanosis or edema Assessment and Plan Assessment & Plan (1) Pure hypercholesterolemia: Code(s): E78.00 - Pure hypercholesterolemia, unspecified Plan: Reinforced low cholesterol diet Continue Atorvastatin 20 mg QD Will recheck his labs and fasting lipids in 3 months for follow up (2) Coronary artery disease: Code(s): I25.10 - Atherosclerotic heart disease of [place] coronary artery without angina pectoris Qualifiers: Coronary Disease-Associated Artery/Lesion type: [place] artery [place] vs. transplanted heart: [place] heart Associated angina: with stable angina Qualified Code(s): I25.118 - Atherosclerotic heart disease of [place] coronary artery with other forms of angina pectoris Plan: Continue Aspirin 81 mg QD Follow up with cardiology as scheduled - has appt scheduled with Dr. Zamora on 04/17/2024 (3) HOCM (hypertrophic obstructive cardiomyopathy): Code(s): I42.1 - Obstructive hypertrophic cardiomyopathy Plan: He was clinically stable for a while until his bout with COVID earlier this year - is now back to his baseline He has a slight outflow tract murmur heard could be from LVOT obstruction - treatment will reportedly be very limited mainly because of his psychiatric issues, per cardiology Follow up echocardiogram done in October 2023 revealed normal left ventricular cavity size, with severely increased left ventricular wall thickness. The left ventricular systolic function is hyperdynamic and visually estimated ejection fraction is >70%, with (+) dynamic LVOT obstruction noted. No obvious CON seen as before. His resting LVOT peak gradient 40 mm Hg, post valsalva 123 mm Hg - this is significantly worse than previous study. Right ventricular cavity size and systolic function are normal. The left atrium is severely dilated, with mildly elevated right atrial pressure and mild dilatation of the sinuses of Valsalva measuring 4.00 cm and mild dilatation of the ascending aorta measuring 3.9 cm. Holter monitor done previously came out normal with no PVCs or NSVT? Patient also had cardiac catheterization done back in 2017 that showed normal coronary arteries Follow-up with cardiology as scheduled (4) Prolonged QT interval: Code(s): R94.31 - Abnormal electrocardiogram [ECG] [EKG] Plan: Mostly due to his antipsychotics - will need close monitoring with cardiology (5) Essential hypertension: Code(s): I10 - Essential (primary) hypertension Plan: Reinforced low sodium diet - goal is systolic BP of at least 120 to 130 mm or less Continue Metoprolol 25 mg QID and HCTZ 12.5 mg QD (6) Diabetes mellitus: Code(s): E11.9 - Type 2 diabetes mellitus without complications Qualifiers: Diabetes mellitus type: type 2 Diabetes mellitus custodial insulin use: without custodial use Diabetes mellitus complication status: without complication Qualified Code(s): E11.9 - Type 2 diabetes mellitus without complications Plan: In-office HgbA1c was at 6.6% when last checked in February 2023 (was at 7.3% previously) and he has NOT had his HgbA1c checked since - goal is < 7.0% Reinforced diabetic diet He used to be on Metformin ER 500 mg QD and Tradjenta 5 mg QD but these were stopped a month or so ago when he had JUHI He is currently on Admelog Q AC and HS per sliding scale Will recheck his labs and HgbA1c in 3 months for follow up (7) JUDY (obstructive sleep apnea): Code(s): G47.33 - Obstructive sleep apnea (adult) (pediatric) Plan: Patient is reminded to continue using his Oxygen when sleeping at night DAILY; he only needs to use it during the day as needed (if he feels SOB) Follow up with Sleep Medicine and with Pulmonary Medicine as scheduled (8) Vitamin D deficiency: Code(s): E55.9 - Vitamin D deficiency, unspecified Plan: Continue Vitamin D3 1000 units QD (9) Constipation: Code(s): K59.00 - Constipation, unspecified Qualifiers: Constipation type: unspecified constipation type Qualified Code(s): K59.00 - Constipation, unspecified Plan: Reinforced increased oral fluids and dietary fiber Continue Miralax 17 gm QD, Colace 200 mg BID and Senna Plus 2 tablets QD (10) GERD without esophagitis: Code(s): K21.9 - Gastro-esophageal reflux disease without esophagitis Plan: Dietary restrictions reinforced Continue Omeprazole 20 mg BID and Mylanta 10 ml TID (11) Osteoarthritis: Code(s): M19.90 - Unspecified osteoarthritis, unspecified site Qualifiers: Osteoarthritis location: multiple joints Osteoarthritis type: unspecified Qualified Code(s): M15.9 - Polyosteoarthritis, unspecified Plan: Involving both lower extremities Knee x-rays done last year revealed (+) OA changes in both knees He had some hardware (pin) removed from his right ankle by Dr. Arrieta in 10/2017 Ankle x-rays done last year also revealed (+) osteoarthritis changes X-rays of both feet done previously showed (+) OA changes in both feet as well Follow up with orthopedics as scheduled He was also advised again of the option of referral to Podiatry for further management if his foot symptoms persist or get worse (12) BPH (benign prostatic hyperplasia): Code(s): N40.0 - Benign prostatic hyperplasia without lower urinary tract symptoms Qualifiers: Lower urinary tract symptom presence: symptoms present Lower urinary tract symptom detail: urinary frequency Qualified Code(s): N40.1 - Benign prostatic hyperplasia with lower urinary tract symptoms; R35.0 - Frequency of micturition Plan: Continue Tamsulosin 0.4 mg Q HS Follow up with urology as scheduled (13) Hypogonadism in male: Comment: Topical testosterone Code(s): E29.1 - Testicular hypofunction Plan: Continue Testosterone (Androgel) 1% 2 packets transdermally OQ as instructed Follow up with urology as scheduled (14) Schizoaffective disorder: Code(s): F25.9 - Schizoaffective disorder, unspecified Qualifiers: Schizoaffective disorder type: bipolar Qualified Code(s): F25.0 - Schizoaffective disorder, bipolar type Plan: Continue Clozaril 75 mg QD and 100 mg Q HS and Latuda 60 mg QAM He is also on Trazodone 50 mg Q HS for sleep Follow up with psychiatry (Freeman Rodríguez) as scheduled (15) Smoker: Comment: Navid lives in a halfway where most of the resident smoke. that he ends up smoking due to peer pressure. but he smokes only a few cigarettes daily. advised to no more than 1 or 2 cigarettes a day. Code(s): F17.200 - Nicotine dependence, unspecified, uncomplicated Plan: Counseled again on smoking cessation (16) Obesity (BMI 30-39.9): Code(s): E66.9 - Obesity, unspecified Plan: Reinforced diet; exercise and weight appear to be unrealistic expectations in patient at this time due to his mutliple physical and psychiatric comorbidities Plan Follow up in 3 months Orders: Orders Complete Blood Count Auto Diff 3 Months D64.9 - Anemia, unspecified Comprehensive [place]. Panel Fast 3 Months E78.00 - Pure hypercholesterolemia, unspecified TSH reflex Free T4 3 Months E78.00 - Pure hypercholesterolemia, unspecified Microalbumin, Random (w Creat) 3 Months E11.9 - Type 2 diabetes mellitus without complications Hemoglobin A1c 3 Months E11.9 - Type 2 diabetes mellitus without complications Lipid Panel 3 Months E78.00 - Pure hypercholesterolemia, unspecified UA CC w/rflx Micro + Cult 3 Months R30.0 - Dysuria Vitamin D 25-OH Total 3 Months E55.9 - Vitamin D deficiency, unspecified Coding Level of Care Code Est Pt Level 4 (09722) Complex EM visit Add On G2211 Diagnoses Pure hypercholesterolemia E78.00 Coronary artery disease of [place] artery of [place] heart with stable angina pectoris I25.118 Coronary Disease-Associated Artery/Lesion type: [place] artery [place] vs. 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 insulin use: without custodial use Diabetes mellitus complication status: without complication JUDY (obstructive sleep apnea) G47.33 Vitamin D deficiency E55.9 Constipation, unspecified constipation type K59.00 Constipation type: unspecified constipation type GERD without esophagitis K21.9 Osteoarthritis of multiple joints, unspecified osteoarthritis type M15.9 Osteoarthritis location: multiple joints Osteoarthritis type: unspecified Benign prostatic hyperplasia with urinary frequency N40.1; R35.0 Lower urinary tract symptom presence: symptoms present Lower urinary tract symptom detail: urinary frequency Hypogonadism in male E29.1 Schizoaffective disorder, bipolar type F25.0 Schizoaffective disorder type: bipolar Smoker F17.200 Obesity (BMI 30-39.9) E66.9
== END 2024-03-25 16:56 | disposition home or self-care (01) ==
PROVIDERS: PCP Internal Medicine; Visit Provider Internal Medicine
DX: E78.00 Pure hypercholesterolemia, unspecified (principal); I25.118 Atherosclerotic heart disease of native coronary artery with other forms of angina pectoris; I42.1 Obstructive hypertrophic cardiomyopathy; E11.9 Type 2 diabetes mellitus without complications; G47.33 Obstructive sleep apnea (adult) (pediatric); E55.9 Vitamin D deficiency, unspecified; K59.00 Constipation, unspecified; K21.9 Gastro-esophageal reflux disease without esophagitis; M15.9 Polyosteoarthritis, unspecified; N40.1 Benign prostatic hyperplasia with lower urinary tract symptoms; R35.0 Frequency of micturition; E29.1 Testicular hypofunction; F25.0 Schizoaffective disorder, bipolar type; F17.200 Nicotine dependence, unspecified, uncomplicated
CPT/HCPCS: 99214; G2211

== ENCOUNTER → 2024-04-09 09:34 | Outpatient (REF) | payer OTHER, SELFPAY ==
--- NOTE | ~2024-04-09 | NM_ITS ---
Lexiscan Myocardial perfusion study Indication: Coronary artery disease Technique: The patient was brought in for a Lexiscan perfusion study on 04/09/2024 and was injected 0.4 mg of Lexiscan intravenously. Within a minute of this injection 35 mCi of sestamibi was given intravenously. Images were obtained using the SPECT gamma camera interlaced with the gating device. Images were obtained in normal position. Resting perfusion study was performed on 04/11/2024. Patient was administered 35 mCi of sestamibi intravenously at rest. Images were then obtained in supine position. Images were processed with the software and compared side to side in short axis, horizontal long axis and vertical long axis views. Total DLP 134mGy-cm. Findings: Raw acquisition reviewed. The stress perfusion study showed diminished tracer uptake in the distal part of inferior wall. There is some improvement with CT attenuation correction and hence could be components of diaphragmatic attenuation artifact. The gated study shows diminished LV systolic function with calculated LVEF of 42%. LV cavity is normal in size. The gated study shows normal wall thickening and contraction of segments. Resting study shows no significant perfusion abnormality. Gating at rest reveals normal wall motion with ejection fraction at 47%. The findings are consistent with reversible distal inferior defect, could be artifactual. No clear fixed defects. NM/NM cardiolite stress test Impression: 1. Myocardial perfusion imaging study shows reversible distal inferior defect, possibly from diaphragmatic attenuation artifact. Less likely true ischemia. 2. Gated LVEF is 42% during stress and 47% during rest. Correlate with echocardiogram. 3. Transient ischemic dilatation not present. EKG component of the test reported separately.
--- NOTE | 2024-04-09 09:36 | CA_ITS ---
Acquisition Time: 2024-04-09 09:42:50 Total Exercise Time: 00:02:00 Test Indications: ELEVATED TROPONINS CARDIOMYOPATH Medications: ATORVASTATIN LOSARTAN METOPROLOL INSULIN ASA TAMSULOSIN TRAZADONE LORAZAPAM ALBUTEROL Protocol: LEXISCAN Max HR: 108 BPM 67% of Pred: 160 BPM Max BP: 112/060 mmHG Max Work Load: 1.0 METS Pharmacological stress test with Lexiscan injection while sitting and slowly kicking his legs, without anginal symptoms, without arrhythmias, with normotenisve response to exercise, with nondiagnoisitic EKGs. ASminophylline 75mg IVP given to reverse Lexiscan. Nuclear images pending. Test reviewed with Dr. Arriaza Referred By: Marciano Zamora Overread By: Anai Rhodes
== END ==
LOC: HO.CARD 09:34
PROVIDERS: PCP Internal Medicine; Visit Provider Internal Medicine Cardiovascular Disease
DX: I25.118 Atherosclerotic heart disease of native coronary artery with other forms of angina pectoris (principal); R94.31 Abnormal electrocardiogram [ECG] [EKG]
CPT/HCPCS: 78452; 93017; A9500; J0280; J2785

== ENCOUNTER → 2024-04-09 09:36 | Outpatient (BNV) | payer OTHER, SELFPAY | PROVIDERS: PCP Internal Medicine; Visit Provider Nurse Practitioner | DX: I25.10 Atherosclerotic heart disease of native coronary artery without angina pectoris (principal) | CPT/HCPCS: 78452; 93016; 93018 ==

== ENCOUNTER 2024-04-28 12:47 | Outpatient (AMB) | payer OTHER, SELFPAY ==
--- NOTE | 2024-04-28 12:53 | A.OFFVIS_ITS ---
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 Present Allergies lithium [[place]] Allergy (Severe, Verified 04/28/24 12:56) Toxicity thiothixene Allergy (Severe, Verified 04/28/24 12:56) Swelling amoxicillin Allergy (Mild, Verified 04/28/24 12:56) Nose Bleed benztropine Allergy (Unknown, Verified 04/28/24 12:56) benztropine mesylate- unknown gabapentin [From NEURONTIN] Allergy (Unknown, Verified 04/28/24 12:56) Unknown fluphenazine [From Prolixin] Allergy (Verified 04/28/24 12:56) Unknown barium sulfate [BARIUM SULFATE] Adverse Reaction (Intermediate, Verified 04/28/24 12:56) Nausea and Vomiting haloperidol Adverse Reaction (Intermediate, Verified 04/28/24 12:56) Muscle tension in legs diphenhydramine [From Benadryl] Adverse Reaction (Unknown, Verified 04/28/24 12:56) urinary retention Medication List - Last Reconciled 04/28/24 by Klaudia Casillas [employer] albuterol sulfate 90 mcg/actuation 2 puffs inhalation Q6H PRN 30 days aspirin 81 mg PO DAILY@0800 30 days atorvastatin 20 mg PO DAILY@1999 30 days cholecalciferol (vitamin D3) 25 mcg PO DAILY@0800 30 days clozapine 75 mg (3 x 25 mg) PO DAILY 30 days clozapine 200 mg PO BEDTIME docusate sodium 1 cap PO BID@08,1999 30 days hydrochlorothiazide 12.5 mg PO DAILY 90 days insulin lispro (Admelog U-100 Insulin lispro) See Protocol units subcut QIDACHS 30 days losartan 25 mg PO DAILY metoprolol succinate ER 50 mg PO BID omeprazole 20 mg PO BID@0630,1630 30 days polyethylene glycol 3350 17 grams PO DAILY 30 days sennosides-docusate sodium 8.6-50 mg (Senna Plus) 2 tabs PO DAILY 30 days tamsulosin 0.4 mg PO DAILY 30 days testosterone 2 packets transdermal DAILY 30 days trazodone 50 mg PO BEDTIME 30 days HPI HPI follow up: Details: Peter is a 59-year-old male with past medical history of hypertension, hyperlipidemia, diabetes, smoking, schizoaffective disorder, hypertrophic obstructive cardiomyopathy who recently admitted to [facility] with small-bowel obstruction and what is improved was transferred to psychiatry. He was sent back to the medical floor following episode of altered mental status, tachypnea and tachycardia. He did develop JUHI, mildly elevated troponins, was febrile. His urine and LP cultures were negative. He thought to have aspiration pneumonia and treated with antibiotics. His condition gradually improved back to baseline and he was sent back to inpatient psych. His last prior outpatient office visit in Cardiology was 10/24/2021. Today he presents with a egg caser. He has a somewhat flat affect but is answering questions appropriately. He denies any concerning symptoms. No chest discomfort at rest or with activity. No shortness of breath, PND, orthopnea or edema. No lightheadedness, presyncope, syncope, falls. He lives in a chcf and takes his medications when they are given to him. He is mostly sedentary and does minimal activities in the home. [facility] Medical History Osteoarthritis GERD without esophagitis Vitamin D deficiency Schizoaffective disorder Diabetes mellitus HOCM (hypertrophic obstructive cardiomyopathy) Congestive heart failure COVID-19 Thought disorder Nocturnal hypoxemia Constipation COPD (chronic obstructive pulmonary disease) JUDY (obstructive sleep apnea) Smoker BPH (benign prostatic hyperplasia) Diabetes mellitus Obesity (BMI 30-39.9) Pure hypercholesterolemia Prolonged QT interval Essential hypertension Aggression Hypertension Coronary artery disease CHF (congestive heart failure) Cardiac arrhythmia Myocardial infarction Surgical History History of ankle surgery History of intestinal surgery History of transurethral resection of prostate Family History Father Medical history unknown Mother Medical history unknown Sister Alive and well Social History Household Members: Other Household Members Other:: Roommate Housing: Other Housing Other:: [facility] Do you presently have visiting nurse or other home services: No Alcohol intake: never Comment: 1:1 sitter Patient Tobacco Use Status: Former Tobacco user Tobacco use type: Cigarette Cigarette Packs Per Day: 0.5 Cigarettes Per Day: 10 Years Smoked: Many e-Cigarette/Vaping Use: Currently Using Substance Use Type: Unknown Advance Directives Date on File: 01/14/24 service: No Current occupational status: disabled Sexual orientation: Straight/Heterosexual Cognitive needs: Yes Hearing needs: No Vision needs: Yes Review of Systems Const All systems reviewed & are unremarkable except as noted in HPI and below ENT Denies dizziness Card Denies chest pain, Denies chest pain at rest, Denies chest pain with activity, Denies rapid heart rate, Denies pedal edema, Denies edema, Denies leg edema, Denies lightheadedness, Denies palpitations, Reports dyspnea, Reports dyspnea on exertion and Denies orthopnea Resp Denies cough, Reports dyspnea and Reports dyspnea on exertion GI Denies hematochezia and Denies change in stool character Musc Denies abnormal gait, Denies limited range of motion, Denies muscle cramps, Denies muscle weakness, Denies numbness, Denies radiating pain into limb, Denies stiffness and Denies tingling Neuro Denies abnormal gait, Denies dizziness, Denies numbness and Denies tingling Endo Denies palpitations Physical Exam Vital Signs: Last Vital Signs Pulse 71 04/28/24 12:54 BP 114/62 04/28/24 12:54 BMI result Body Mass Index 34.6 Const General: cooperative, healthy appearing, comfortable and no acute distress Orientation/consciousness: patient oriented x3 Neck Neck: Yes normal visual inspection and Yes no JVD Resp Effort & Inspection: normal respiratory effort Auscultation: clear to auscultation bilaterally, no rales, no rhonchi and no wheezes Cardio Jugular venous distension: no JVD Rate: regular rate Rhythm: regular rhythm Heart sounds: S1 normal heart sound present, S2 normal heart sound present, no murmurs and no rubs Neuro General: patient oriented x3 Extrem General: Yes normal to inspection and No no pedal edema Psych Other: flat affect Appearance: grossly normal Mental Status: mental status grossly normal Speech and movement: Normal speech and movement present Assessment & Plan Assessment & Plan (1) Elevated troponin: Code(s): R79.89 - Other specified abnormal findings of blood chemistry Category: Medical Plan: During recent [facility] admission he developed altered mental status, tachycardia, tachypnea, JUHI, mildly elevated troponin. His EKG was nondiagnostic for ischemia as he does have repolarization abnormalities from LVH. He was evaluated for sepsis. An LP and a urine culture were negative. He was seen by infectious disease and was likely to have aspiration pneumonia. He was treated with antibiotics. His condition including kidney function did improve. Creatinine had been as high as 1.67. On last hospital check 01/23/2024 creati nine 0.9. Troponin can be mildly elevated in the setting of JUHI. He did have a cardiac catheterization in 2017 which showed normal coronary arteries. At this time he has no known coronary artery disease. He did undergo pharmacological nuclear stress test as outpatient on 04/11/2024 showing a reversible distal inferior defect possibly from diaphragm attenuation artifact, less likely true ischemia, EF 42% with stress and 47% with rest. An echocardiogram had been done on 01/16/2024 showing EF greater than 70%, severe LVH without significant regional wall motion abnormality. At this time he has no reports of anginal sounding symptoms. He is mostly sedentary. Signs and symptoms of angina reviewed with him. Continue with risk factor modification. He is on daily aspirin however it is not needed for cardiac findings as he has no known CAD. He is on atorvastatin with ideal LDL goal less than 100. Labs done 01/10/2024 showed LDL 73. He is on metoprolol and hydrochlorothiazide for good blood pressure control. Blood pressure currently 114/62. No med changes made at this time. Cardiology follow-up 6 months, sooner if needed (2) HOCM (hypertrophic obstructive cardiomyopathy): Code(s): I42.1 - Obstructive hypertrophic cardiomyopathy Category: Medical Plan: History of hypertrophic cardiomyopathy. A cardiac MRI done in 2018 showed hypertrophic cardiomyopathy with at least moderate LV outflow track obstruction, systolic anterior motion of the mitral valve, degree of hypertrophy greatest at the apical segment, no abnormal enhancement, subjectively preserved EF. Last full echocardiogram done on 10/10/2023 showing EF greater than 70%, severe increase in LV wall thickness, dynamic LVOT gradient noted, resting LVOT peak gradient 40 mmHg, post Valsalva 123 mmHg, worse than prior study in 2020, normal RV cavity size and function, left atrium severely dilated, mild dilation of the sinus of Valsalva 4 cm and mild dilation of ascending aorta 3.9 cm. A limited echocardiogram done during last hospitalization showed EF greater than 70%, severe LVH with no evidence of regional wall motion abnormality. He does report some shortness of breath at times with with walking. He admits to being mostly sedentary. He does not appear fluid overloaded on examination. His blood pressure is well controlled. Continue current med management including hydrochlorothiazide and metoprolol. Will check with his primary tire servicer regarding any further cardiac testing or med changes. Diagnosis of HOCM was reviewed with him. (3) Prolonged QT interval: Code(s): R94.31 - Abnormal electrocardiogram [ECG] [EKG] Category: Medical Plan: Has had variable QTC levels in the past, likely related to use of antipsychotic medications. EKGs were completed during recent hospitalization showing QTC ranging 496ms - 523ms. This range is similar to what was noted on his last office visit in 2021. Hospital discharge summary resume reviewed and no mention of cardiac arrhythmias at that time. Labs done on 01/18/2024 showed magnesium 2.1, labs 01/23/2024 showed potassium 3.7, calcium 9.3. He denies any heart palpitations, presyncope, syncope. Avoid medications that prolong his QT interval. Periodic EKGs should be performed. Will plan for EKG on next cardiology follow-up. (4) Hypertension: Code(s): I10 - Essential (primary) hypertension Category: Medical Qualifiers: Hypertension type: essential hypertension Qualified Code(s): I10 - Essential (primary) hypertension Plan: Well controlled at this time. No medication changes made. (5) Abnormal EKG: Code(s): R94.31 - Abnormal electrocardiogram [ECG] [EKG] Category: Medical Plan: EKG does have ST and T-wave abnormalities, chronic, related to HOCM. Nondiagnostic for ischemia (6) Hospital discharge follow-up: Code(s): Z09 - Encounter for follow-up examination after completed treatment for conditions other than malignant neoplasm Category: Medical Plan: As above Plan Time spent on chart review, documentation, interview and assessment Medications: New metoprolol succinate ER 50 mg PO BID 180 tabs 3RF 90 days Klaudia M Vinny, [employer]ACHINE [employer] losartan 25 mg PO DAILY 90 tabs 3RF Klaudia M Vinny [employer]ACHINE [employer] Changed From clozapine 100 mg PO BEDTIME 30 days 30 tabs 0RF To clozapine 200 mg PO BEDTIME Jack Miller Refilled hydrochlorothiazide 12.5 mg PO DAILY 90 caps 3RF 90 days Klaudia Casillas [employer]ACHINE SERVICER-C Coding Level of Care Code Est Pt Level 4 (66038) Diagnoses Elevated troponin R79.89 HOCM (hypertrophic obstructive cardiomyopathy) I42.1 Prolonged QT interval R94.31 Essential hypertension I10 Hypertension type: essential hypertension Abnormal EKG R94.31 Hospital discharge follow-up Z09 Time Spent (min) 28
[2024-04-28 12:54] VITALS: BP 114/62; PULSE 71; BMI 34.6
== END 2024-04-28 13:32 | disposition home or self-care (01) ==
PROVIDERS: PCP Internal Medicine; Visit Provider Nurse Practitioner Family
DX: R79.89 Other specified abnormal findings of blood chemistry (principal); I42.1 Obstructive hypertrophic cardiomyopathy; R94.31 Abnormal electrocardiogram [ECG] [EKG]; I10 Essential (primary) hypertension; Z09 Encounter for follow-up examination after completed treatment for conditions other than malignant neoplasm
CPT/HCPCS: 99214

== ENCOUNTER → 2024-04-28 12:47 | Outpatient (BNVA) | payer OTHER, SELFPAY | PROVIDERS: PCP Internal Medicine; Visit Provider Nurse Practitioner Family | DX: Z09 Encounter for follow-up examination after completed treatment for conditions other than malignant neoplasm (principal); R79.89 Other specified abnormal findings of blood chemistry; R94.31 Abnormal electrocardiogram [ECG] [EKG]; I10 Essential (primary) hypertension; I42.1 Obstructive hypertrophic cardiomyopathy | CPT/HCPCS: 99212 ==

== ENCOUNTER 2024-05-27 00:10 | Inpatient (IN) | payer OTHER, SELFPAY ==
[2024-05-27] VITALS (20 sets, daily range): BP systolic 111–178; BP diastolic 51–100; PULSE 90–115; RESP 18–30; TEMP 36.2–37.4; O2SAT 85–99; BMI 33.2
--- NOTE | ~2024-05-27 | XR_ITS ---
EXAMINATION: XR CHEST CLINICAL INFORMATION: Dyspnea COMPARISON: CT chest 01/17/2024. TECHNIQUE: Frontal view of the chest was obtained. FINDINGS: The examination is suboptimal secondary to markedly underpenetrated technique as manifest by inability to visualize the thoracic vertebral bodies posterior to the cardiac silhouette. Low lung volumes are present with the sixth anterior rib segments terminating projection with the lung bases. The heart size is grossly normal. No gross effusions or pneumothoraces identified. Asymmetric reticular opacities are present throughout the right lung and may represent findings related to suboptimal radiographic technique or interstitial findings within the right lung. Mild left base airspace opacification is suggested with partial obscuration of the descending aortic margin. XR/XR chest 1V IMPRESSION: *Technically suboptimal radiograph of the chest secondary to markedly underpenetrated radiographic technique. *Low lung lungs. *Findings suspicious for interstitial disease within the right lung which may represent visualization of edema or atypical/viral infection. Consider further evaluation with repeat chest radiographs as clinically indicated. *Findings suspicious for mild left lower lobe atelectasis and/or consolidation.
--- NOTE | ~2024-05-27 | XR_ITS ---
EXAMINATION: XR CHEST CLINICAL INFORMATION: Congestive heart failure COMPARISON: 05/27/24 TECHNIQUE: Frontal portable view of the chest was obtained. FINDINGS: Devices overlie the patient. No definite change in cardiac size. The ann-marie are obscured. There are perihilar opacities greater on the right. No pneumothorax or significant pleural fluid XR/XR chest 1V IMPRESSION: There are some perihilar opacities. Probably no significant interval change Electronically signed by: Desean Cazares MD 06/01/2024 09:48 PM EDT RP
--- NOTE | ~2024-05-27 | CT_ITS ---
EXAMINATION: CT ANGIOGRAM OF THE CHEST WITH AND WITHOUT CONTRAST (CT PULMONARY ANGIOGRAM FOR PE) CLINICAL INFORMATION: Reason for Exam tachycardia, dyspnea COMPARISON: Chest radiograph 05/27/2024. TECHNIQUE: Prior to contrast administration, noncontrast localization images were obtained. Subsequently, multidetector volumetric imaging was performed from the thoracic inlet to below the diaphragms following the administration of 80 mL Omnipaque 350 intravenous contrast. No contrast reaction reported Sagittal, coronal, and MIP oblique sagittal reformatted images were obtained on the CT workstation, uploaded to PACS, and reviewed. This CT examination was performed using dose optimization techniques as appropriate, variously including the following: *Automated exposure control *Adjustment of mA and/or kV according to patient size (this includes techniques or standardized protocols for targeted exams where dose is matched to indication/reason for exam; i.e. extremities or head) *Use of iterative reconstruction technique Total exam dose-length product 458 mGy-cm FINDINGS: QUALITY OF STUDY/CONTRAST BOLUS: Satisfactory. PULMONARY ARTERIES: No pulmonary emboli. THORACIC AORTA: No aneurysm. LUNG: Bilateral groundglass pulmonary opacities are present and exhibits subpleural sparing. Findings are most pronounced right lung. No dense pulmonary consolidation visualized. PLEURA: Small right and trace left dependent layering low density pleural effusions. No pneumothoraces. MEDIASTINUM: No mediastinal lymphadenopathy. Normal heart size. Small pericardial effusion is present measuring 10 mm in maximum width. No evidence of septal bowing or right heart strain. CORONARY ARTERY CALCIFICATION: No gross coronary artery calcific atherosclerotic plaques noted. CHEST WALL/AXILLA: No axillary or internal mammary lymphadenopathy. OSSEOUS STRUCTURES: Moderate multilevel anterior endplate osteophytosis of the thoracic spine. UPPER ABDOMEN: Unremarkable. No reflux of contrast into the hepatic veins to suggest elevated right heart pressures. CT/CT angio chest PE protocol IMPRESSION: *CT pulmonary angiogram negative for pulmonary emboli. *Bilateral diffuse pulmonary groundglass opacities with subpleural sparing. Findings are most pronounced in the right lung. Findings are suspicious for asymmetric alveolar pulmonary edema. Diffuse pulmonary infection or pulmonary hemorrhage could have a similar appearance. *Small right and trace left dependent layering low density pleural effusions. VTE: negative
--- NOTE | 2024-05-27 00:24 | ECG_ITS ---
Test Reason : DYSPNEA Blood Pressure : / mmHG Vent. Rate : 098 BPM Atrial Rate : 098 BPM P-R Int : 170 ms QRS Dur : 108 ms QT Int : 390 ms P-R-T Axes : 084 029 182 degrees QTc Int : 497 ms Normal sinus rhythm Incomplete left bundle branch block ST & T wave abnormality, consider inferolateral ischemia Prolonged QT Abnormal ECG When compared with ECG of 23-JAN-2024 18:50, Premature atrial complexes are no longer Present Referred By: Sharda Smith Electronically Signed By:ALBARO MUSTAFA
--- NOTE | 2024-05-27 00:26 | ED.SOB ---
HPI - SOB/Dyspnea General Chief Complaint: Dyspnea Stated Complaint: SOB Time Seen by Provider: 05/27/24 00:16 Source: patient and EMS Mode of arrival: EMS Limitations: other (poor historian) History of Present Illness ED Provider: MAGGIE HAIR Narrative: 59 yo male with PMH of schizoaffective disorder, HOCM, COPD on 2L NC at night, JUDY, CAD, HTN, DM2 here with c/o increased shortness of breath EMS found him 85% on RA which is weird since he should be on night O2. He reports he is compliant was given a neb and O2 and improved to 93%. He denies chest pain. He is still smoking. Denies any recent URI and states his roommate does not appear ill. He denies sputum production. On arrival he is allowing labs, CXR, EKG but refuses IV. elicited complaint: shortness of breath Pertinent past history: COPD and asthma Onset (ago): day(s) (on and off 2 days) Context: smoke/fume exposure Timing: intermittent Severity: mild Exacerbating factors: coughing Relieving factors: oxygen and bronchodilators Known history of: COPD Associated symptoms: cough and wheezing Treatment prior to arrival: oxygen and bronchodilator Related Data Home Medications ?Medication ?Instructions ?Recorded ?Confirmed clozapine 100 mg tablet 200 mg PO BEDTIME 04/28/24 04/28/24 Previous Rx's ?Medication ?Instructions ?Recorded atorvastatin 20 mg tablet 20 mg PO DAILY@1999 30 days #30 02/05/24 tabs clozapine 25 mg tablet 75 mg (3 x 25 mg) PO DAILY 30 days 02/05/24 #90 tabs docusate sodium 100 mg capsule 1 cap PO BID@08 30 days #60 02/05/24 caps insulin lispro 100 unit/mL See Protocol subcut QIDACHS 30 02/05/24 subcutaneous solution (Admelog days #5 mL U-100 Insulin lispro) omeprazole 20 mg capsule,delayed 20 mg PO BID@0630,1630 30 days #60 02/05/24 release caps polyethylene glycol 3350 17 gram 17 g PO DAILY 30 days #30 ea 02/05/24 oral powder packet sennosides 8.6 mg-docusate sodium 2 tab PO DAILY 30 days #60 tabs 02/05/24 50 mg tablet (Senna Plus) tamsulosin 0.4 mg capsule 0.4 mg PO DAILY 30 days #30 caps 02/05/24 trazodone 50 mg tablet 50 mg PO BEDTIME 30 days #30 tabs 02/05/24 testosterone 1 % (50 mg/5 gram) 2 packet transdermal DAILY 30 days 02/22/24 transdermal gel packet #300 grams albuterol sulfate 90 mcg/actuation 2 puff inhalation Q6H PRN 02/26/24 aerosol inhaler Shortness Of Breath Or Wheezing 30 days #1 inhaler aspirin 81 mg tablet,delayed 81 mg PO DAILY@0800 30 days #30 04/14/24 release tabs hydrochlorothiazide 12.5 mg capsule 12.5 mg PO DAILY 90 days #90 caps 04/28/24 losartan 25 mg tablet 25 mg PO DAILY #90 tabs 04/28/24 metoprolol succinate 50 mg 50 mg PO BID 90 days #180 tabs 04/28/24 tablet,extended release 24 hr cholecalciferol (vitamin D3) 25 25 mcg PO DAILY@0800 30 days #30 05/05/24 mcg (1,000 unit) tablet tabs Allergies Allergy/AdvReac Type Severity Reaction Status Date / Time lithium [[place]] Allergy Severe Toxicity Verified 05/27/24 00:23 thiothixene Allergy Severe Swelling Verified 05/27/24 00:23 amoxicillin Allergy Mild Nose Bleed Verified 05/27/24 00:23 benztropine Allergy Unknown benztropine Verified 05/27/24 00:23 mesylate- unknown gabapentin [From NEURONTIN] Allergy Unknown Unknown Verified 05/27/24 00:23 fluphenazine [From Prolixin] Allergy Unknown Verified 05/27/24 00:23 barium sulfate AdvReac Intermediate Nausea and Verified 05/27/24 00:23 [BARIUM SULFATE] Vomiting haloperidol AdvReac Intermediate Muscle Verified 05/27/24 00:23 tension in legs diphenhydramine AdvReac Unknown urinary Verified 05/27/24 00:23 [From Benadryl] retention Review of Systems Review of Systems: Constitutional : No Fever, No Chills ENT/Mouth : No Hoarseness, No sore throat, No Rhinorrhea Eyes: No Redness, No Discharge, No Vision Changes Cardiovascular : No Chest Pain, positive SOB, positive Dyspnea on Exertion, No Edema Respiratory : positive Cough, No Sputum, positive Wheezing, Gastrointestinal : No Nausea, No Vomiting, No Diarrhea, No abdominal Pain Genitourinary : No Dysuria, No Hematuria Musculoskeletal : No joint pain, No Myalgias Skin : No rash Neuro : No Weakness, No Numbness, No Headache Psych : No anxiety, depression Heme/Lymph: No Bruising, No Bleeding Endocrine : No Polyuria, No Polydipsia All other systems reviewed and are negative PMFSH Past Medical History Attestation statement: The following information was validated with the patient. Source: old records reviewed Medical History Osteoarthritis GERD without esophagitis Vitamin D deficiency Schizoaffective disorder Diabetes mellitus HOCM (hypertrophic obstructive cardiomyopathy) Congestive heart failure COVID-19 Thought disorder Nocturnal hypoxemia Constipation COPD (chronic obstructive pulmonary disease) JUDY (obstructive sleep apnea) Smoker BPH (benign prostatic hyperplasia) Diabetes mellitus Obesity (BMI 30-39.9) Pure hypercholesterolemia Prolonged QT interval Essential hypertension Aggression Hypertension Coronary artery disease CHF (congestive heart failure) Cardiac arrhythmia Myocardial infarction Surgical History History of ankle surgery History of intestinal surgery History of transurethral resection of prostate Family History Family History Father Medical history unknown Mother Medical history unknown Sister Alive and well Social History Social History Household Members: Other Household Members Other:: Roommate Housing: Other Housing Other:: [facility] Do you presently have visiting nurse or other home services: No Alcohol intake: never Comment: 1:1 sitter Patient Tobacco Use Status: Former Tobacco user Tobacco use type: Cigarette Cigarette Packs Per Day: 0.5 Cigarettes Per Day: 10 Years Smoked: Many Smoked in Last 30 Days: Yes e-Cigarette/Vaping Use: Currently Using Use of substances other than those prescribed or required for medical reasons: No Substance Use Type: Unknown Advance Directives: Yes Advance Directives on File: Yes Advance Directives Date on File: 01/14/24 Do you have a plan to hurt others: No Plan service: No Current occupational status: disabled Sexual orientation: Straight/Heterosexual Cognitive needs: Yes Hearing needs: No Vision needs: Yes Physical Exam Vital Signs: Vital Signs: Last Vital Signs Temp 99.4 F 05/27/24 05:23 Pulse 112 H 05/27/24 05:23 Resp 26 H 05/27/24 05:23 BP 116/71 05/27/24 05:23 Pulse Ox 95 05/27/24 05:23 O2 Del Method Nasal Cannula 05/27/24 05:23 O2 Flow Rate 2 05/27/24 05:23 Oxygen Flow Rate 2 05/27/24 00:21 BMI result Body Mass Index 33.2 Appearance: Alert. Oriented X3. No acute distress. Eyes: Pupils equal, round and reactive to light. ENT: Pharynx normal. Neck: Normal inspection. Neck supple. CVS: Normal heart rate and rhythm. Pulses normal. Respiratory: No respiratory distress. Breath sounds mild exp wheezes noted anteriorly, rales in bases Abdomen: Soft and nontender. Skin: Skin warm and dry. Normal skin color. Normal skin turgor. Extremities: 1-2+ pitting lower extremity edema. Neuro: Oriented X 3. No motor deficit. No sensory deficit. Course Course Course Narrative: I had put in IV solumedrol and IV lasix he has no cough, fevers, WBC count suspect edema and CHF increased work of breathing - suspect CHF, IV lasix ordered given increased work of breathing and labored bipap ordered 203am Reevaluation(s) Reevaluation #1: much better at this time will try to get off bipap Reevaluation #2: bipap used for CHF and not infection or severe sepsis doing well off bipap 5am Reevaluation #3: given COPD will need lactic acid cultures and IV cetriaxone possible infection suspected 533am Additional Reevaluation(s): lactic acidosis due to albuterol and not infection or severe sepsis 626am total of 80mg IV lasix ordered has only put out about 500 cc of urine Medications Administered Discontinued Medications Generic Name Dose Route Start Last Admin Trade Name Freq PRN Reason Stop Dose Admin Acetaminophen 975 mg 05/27/24 05:35 05/27/24 05:49 Acetaminophen 325 Mg Tablet PO 05/27/24 05:36 Not Given ONCE ONE Albuterol Sulfate 7.5 mg/ 10 mg 05/27/24 00:44 05/27/24 00:50 Albuterol Sulfate 2.5 mg INHALE 05/27/24 00:45 10 mg ONCE ONE Administration Albuterol Sulfate 7.5 mg/ 10 mg 05/27/24 01:03 05/27/24 01:10 Albuterol Sulfate 2.5 mg INHALE 05/27/24 01:04 10 mg ONCE ONE Administration Albuterol Sulfate 5 mg/ 7.5 mg 05/27/24 01:46 05/27/24 01:52 Albuterol Sulfate 2.5 mg INHALE 05/27/24 01:47 7.5 mg ONCE ONE Administration Furosemide 40 mg 05/27/24 01:15 05/27/24 01:48 Furosemide 40 Mg/4 Ml Vial IVPUSH 05/27/24 01:16 40 mg STAT STA Administration Protocol Ceftriaxone Sodium 1 gm/ 50 mls @ 100 mls/hr 05/27/24 05:30 05/27/24 07:03 Sodium Chloride IV 05/27/24 05:59 Infused ONCE ONE Infusion Ibuprofen 600 mg 05/27/24 05:43 05/27/24 05:48 Ibuprofen 600 Mg Tablet PO 05/27/24 05:44 600 mg ONCE ONE Administration Iohexol 100 ml 05/27/24 06:29 05/27/24 06:30 Iohexol 350 Mg/Ml 100 Ml Infus..Btl IV 05/27/24 06:30 100 ml ONCE ONE Administration Methylprednisolone Sodium Succinate 60 mg 05/27/24 00:32 05/27/24 01:48 Methylprednisolone Sod Succ 125 Mg/2 Ml Vial IVPUSH 05/27/24 00:33 60 mg ONCE ONE Administration Morphine Sulfate 2 mg 05/27/24 02:14 05/27/24 02:40 Morphine Sulfate 2 Mg/Ml Cartridge IVPUSH 05/27/24 02:15 2 mg ONCE ONE Administration Protocol Medical Decision Making Medical Decision Making MDM Narrative: 59 yo male with PMH of schizoaffective disorder, HOCM, COPD on 2L NC at night, JUDY, CAD, HTN, DM2 here with c/o having a cough tonight but no fevers, chest pain, states he and his roommate smoke cigarettes he has been feeling short of breath at night at this time allowing chest xray, swabs, labs and nebs - feels better with EMS neb but refusing IV line. He denies CP doubt VTE or PE, likely CHF vs bronchospasm. Possible viral syndrome, CHF, reactive airway disease. Differential Diagnosis Differential Diagnoses: The differential diagnosis associated with the presentation includes viral syndrome, CHF, reactive airway disease Admission/Observation Consideration of admission/observation: Escalation of care including admission/observation considered currently refusing IV Consult Healthcare Provider Management of the patient was discussed with: Hospitalist (will admit) Lab Data MDM Lab Attestation statement: I reviewed the patient's lab results. 05/27/24 00:47 05/27/24 00:47 Labs: Lab Results 05/27/24 05/27/24 05/27/24 Range/Units 00:47 00:52 05:20 WBC 8.2 (4.8-10.8) X10*3/uL RBC 3.90 L (4.60-5.80) X10*6/uL Hgb 10.4 L (14.0-18.0) g/dl Hct 33.6 L (42.0-52.0) % MCV 86.2 (80.0-98.0) fL MCH 26.7 L (27.0-33.0) pg MCHC 31.0 (31.0-36.0) g/dl RDW 16.7 H (11.0-16.0) % Plt Count 160 D (160-400) X10*3/uL MPV 11.5 (9.4-12.4) fL Immature Gran % (Auto) 0.6 H (0.0-0.4) % Neut % (Auto) 78.0 H (45-73) % Lymph % (Auto) 12.0 L (20-40) % [place] % (Auto) 7.4 (2-11) % Eos % (Auto) 1.1 (0-4) % Baso % (Auto) 0.9 (0-2) % Lymph # (Auto) 1.0 L (1.2-4.9) X10*3/uL [place] # (Auto) 0.6 (0.1-1.2) X10*3/uL Eos # (Auto) 0.1 (0.0-0.4) X10*3/uL Baso # (Auto) 0.1 (0.0-0.2) X10*3/uL Abs Immat Gran (auto) 0.05 H (0.00-0.03) X10*3/uL Absolute Neuts (auto) 6.4 (2.0-8.3) x10*3/uL Absolute Nucleated RBC 0.000 (0.0-0.012) X10*3/uL Nucleated RBC % (auto) 0.0 (0.0-0.2) /100WBC VBG pH 7.50 H (7.32-7.43) VBG pCO2 33 mmHg VBG pO2 110 mmHg VBG HCO3 26 (22-26) mmol/L VBG O2 Saturation 99.0 % VBG Base Excess 3.4 mmol/L Sodium 144 (135-145) mmol/L Potassium 3.9 (3.3-5.1) mmol/L Chloride 109 H (96-108) mmol/L Carbon Dioxide 23 (22-29) mmol/L Anion Gap 16 (12-20) BUN 16 (9-16) mg/dL Creatinine 1.06 (0.5-1.4) mg/dL Estim Creat Clear Calc 87.2 Estimated GFR > 60 Random Glucose 213 H (60-115) mg/dL Lactic Acid (0.5-2.0) mmol/L Calcium 9.4 (8.4-10.2) mg/dL Magnesium 1.9 (1.6-2.6) mg/dL Total Bilirubin 0.4 (0.0-1.0) mg/dL Direct Bilirubin 0.1 (0.0-0.5) mg/dL AST 13 (5-37) U/L ALT 18 (0-40) U/L Alkaline Phosphatase 71 (39-117) U/L Troponin I High Sens 12.2 24.5 D (<3.5-35.0) ng/L B-Natriuretic Peptide 616 H (<100) pg/mL Total Protein 6.2 L (6.5-8.0) g/dL Albumin 3.7 (3.5-5.0) g/dL Urine Color Yellow Urine Appearance Clear Urine pH 5.5 (5.0-9.0) Ur Specific [place] 1.010 (1.005-1.025) Urine Protein 30 (1+) H (Neg-Trace) mg/dL Urine Glucose (UA) Negative (Negative) mg/dL Urine Ketones Negative (Negative) mg/dL Urine Blood Negative (Negative) Urine Nitrite Negative (Negative) Ur Leukocyte Esterase Negative (Negative) Urine RBC 0-2 (0-2) /HPF Urine WBC 0-5 (0-5) /HPF Ur Squamous Epith Cells 0-2 (0-2) /HPF Urine Bacteria None Seen (None Seen) Hyaline Casts 3-5 (0-2) /LPF Influenza Type A (PCR) NEGATIVE (Negative) Influenza Type B (PCR) NEGATIVE (Negative) RSV RNA Qual (PCR) NEGATIVE (Negative) SARS-CoV-2 RNA (RT-PCR) NEGATIVE (Negative) 05/27/24 Range/Units 05:58 WBC (4.8-10.8) X10*3/uL RBC (4.60-5.80) X10*6/uL Hgb (14.0-18.0) g/dl Hct (42.0-52.0) % MCV (80.0-98.0) fL MCH (27.0-33.0) pg MCHC (31.0-36.0) g/dl RDW (11.0-16.0) % Plt Count (160-400) X10*3/uL MPV (9.4-12.4) fL Immature Gran % (Auto) (0.0-0.4) % Neut % (Auto) (45-73) % Lymph % (Auto) (20-40) % [place] % (Auto) (2-11) % Eos % (Auto) (0-4) % Baso % (Auto) (0-2) % Lymph # (Auto) (1.2-4.9) X10*3/uL [place] # (Auto) (0.1-1.2) X10*3/uL Eos # (Auto) (0.0-0.4) X10*3/uL Baso # (Auto) (0.0-0.2) X10*3/uL Abs Immat Gran (auto) (0.00-0.03) X10*3/uL Absolute Neuts (auto) (2.0-8.3) x10*3/uL Absolute Nucleated RBC (0.0-0.012) X10*3/uL Nucleated RBC % (auto) (0.0-0.2) /100WBC VBG pH (7.32-7.43) VBG pCO2 mmHg VBG pO2 mmHg VBG HCO3 (22-26) mmol/L VBG O2 Saturation % VBG Base Excess mmol/L Sodium (135-145) mmol/L Potassium (3.3-5.1) mmol/L Chloride (96-108) mmol/L Carbon Dioxide (22-29) mmol/L Anion Gap (12-20) BUN (9-16) mg/dL Creatinine (0.5-1.4) mg/dL Estim Creat Clear Calc Estimated GFR Random Glucose (60-115) mg/dL Lactic Acid 7.7 H* (0.5-2.0) mmol/L Calcium (8.4-10.2) mg/dL Magnesium (1.6-2.6) mg/dL Total Bilirubin (0.0-1.0) mg/dL Direct Bilirubin (0.0-0.5) mg/dL AST (5-37) U/L ALT (0-40) U/L Alkaline Phosphatase (39-117) U/L Troponin I High Sens (<3.5-35.0) ng/L B-Natriuretic Peptide (<100) pg/mL Total Protein (6.5-8.0) g/dL Albumin (3.5-5.0) g/dL Urine Color Urine Appearance Urine pH (5.0-9.0) Ur Specific [place] (1.005-1.025) Urine Protein (Neg-Trace) mg/dL Urine Glucose (UA) (Negative) mg/dL Urine Ketones (Negative) mg/dL Urine Blood (Negative) Urine Nitrite (Negative) Ur Leukocyte Esterase (Negative) Urine RBC (0-2) /HPF Urine WBC (0-5) /HPF Ur Squamous Epith Cells (0-2) /HPF Urine Bacteria (None Seen) Hyaline Casts (0-2) /LPF Influenza Type A (PCR) (Negative) Influenza Type B (PCR) (Negative) RSV RNA Qual (PCR) (Negative) SARS-CoV-2 RNA (RT-PCR) (Negative) Independent Interpretation I performed an independent interpretation of an: EKG, Plain X-Ray (suspect CHF) and CT Scan (no PE, pulm edema) Interpretation: Rate: 98 Rhythm: NSR [place]: normal Normal P waves. Normal LISA. incomplete LBBB. ST T wave : inverted t waves I, aVL, V4-V6 qTC: 497 prior studies: no sig change from priors The study has been interpreted contemporaneously by me. EKG#2 Rate: 113 Rhythm: sinus tach [place]: left Normal P waves. Normal LISA. imcomplete LBBB ST T wave : no SE, inverted t wave I, aVL, V4-V6 qTC: 502 prior studies: no acute change from prior The study has been interpreted contemporaneously by me. . Radiology Impression Discussion of test interpretation with radiology: I have reviewed the radiologist's reading. Independent Historian Clinical information obtained from an independent historian. History obtained from or confirmed by: EMS External Record Review External record reviewed: Inpatient record Critical Care Time Critical Care Time Critical Care Time: Yes Total Critical Care Time: 60 Attestation: NIPPV, review of records, repeat labs, admission I attest to this time spent taking care of the patient Discharge Plan Discharge Clinical Impression: Congestive heart failure, COPD with acute exacerbation, Acidosis, lactic, Pulmonary edema Patient Disposition: Admitted As Inpatient Print Language: Kazakh Sepsis Bolus Exclusion Sepsis Bolus Exclusion CHF/Renal Failure This patient met severe sepsis criteria due to the following condition(s):: Lactate>=4mmol/L In my clinical judgement the administration of 30 ml/kg of crystalloid would be detrimental to this patient due to the patient's following conditions:: NYHA class III or IV Heart Failure(symptoms with low exertion or rest) and Concern for fluid overload Replace the 30 mls/kg with (Zero amount not acceptable and all fluids for severe sepsis must be given at GREATER than 125 mls/hr) Crystalloids amount given in mls: (rate must be at least 150cc/hr): 250 Colloids amount given in mls:: 200 Sepsis Bolus Exclusion Sepsis Bolus Exclusion This patient met severe sepsis criteria due to the following condition(s):: Lactate>=4mmol/L In my clinical judgement the administration of 30 ml/kg of crystalloid would be detrimental to this patient due to the patient's following conditions:: NYHA class III or IV Heart Failure(symptoms with low exertion or rest) and Concern for fluid overload Replace the 30 mls/kg with (Zero amount not acceptable and all fluids for severe sepsis must be given at GREATER than 125 mls/hr) *Note: One of the stewart must be documented Crystalloids amount given in mls: (rate must be at least 150cc/hr): 250 Colloids amount given in mls:: 200
[2024-05-27] MEDS: Albuterol Sulfate 7.5 MG, Albuterol Sulfate (0.083%) 2.5 MG 10 MG INHALE ×2 (00:50→01:10)
[2024-05-27 00:52] LABS: Basophils Absolute Auto 0.1 X10*3/uL (0.0-0.2); Basophils Percent Auto 0.9 % (0-2); Eosinophils Absolute Auto 0.1 X10*3/uL (0.0-0.4); Eosinophils Percent Auto 1.1 % (0-4); Hematocrit 33.6 % (42.0-52.0); Hemoglobin 10.4 g/dl (14.0-18.0); Imm Gran Abs Auto 0.05 X10*3/uL (0.00-0.03); Imm Gran Pct Auto 0.6 % (0.0-0.4); MANUAL DIFF FLAG NO; Mean Corpuscular Hemoglobin 26.7 pg (27.0-33.0); Mean Corpuscular Volume 86.2 fL (80.0-98.0); Mean Platelet Volume 11.5 fL (9.4-12.4); Monocytes Absolute Auto 0.6 X10*3/uL (0.1-1.2); Monocytes Percent Auto 7.4 % (2-11); Neutrophils Absolute Auto 6.4 x10*3/uL (2.0-8.3); Platelet Count 160 X10*3/uL (160-400); Red Cell Distribution Width 16.7 % (11.0-16.0); White Blood Count 8.2 X10*3/uL (4.8-10.8)
--- NOTE | 2024-05-27 00:52 | PC.NURSE ---
Patient refused IV line placement, Dr Smith noticed. Patient agreeable for blood draw with a butterfly needle.
[2024-05-27 00:57] LABS: VBG Base Excess 3.4 mmol/L; VBG HCO3 26 mmol/L (22-26); VBG pCO2 33 mmHg; VBG pO2 110 mmHg
[2024-05-27 01:00] LABS: Venous Blood Gas Refer to POC result
[2024-05-27 01:09] LABS: Alanine Aminotransferase 18 U/L (0-40); Albumin Level 3.7 g/dL (3.5-5.0); Alkaline Phosphatase 71 U/L (39-117); Anion Gap 16 (12-20); Aspartate Amino Transferase 13 U/L (5-37); Bilirubin Direct 0.1 mg/dL (0.0-0.5); Bilirubin Total 0.4 mg/dL (0.0-1.0); Blood Urea Nitrogen 16 mg/dL (9-16); Calcium 9.4 mg/dL (8.4-10.2); Carbon Dioxide 23 mmol/L (22-29); Chloride 109 mmol/L (96-108); Creatinine Clr Calc Pharmacy 87.2; Estimated Glomerular Filt Rate > 60; Glucose Random 213 mg/dL (60-115); Magnesium 1.9 mg/dL (1.6-2.6); Potassium 3.9 mmol/L (3.3-5.1); Sodium 144 mmol/L (135-145); Total Protein 6.2 g/dL (6.5-8.0)
[2024-05-27 01:11] LABS: B Type Natriuretic Peptide 616 pg/mL (<100)
[2024-05-27 01:15] LABS: Troponin-I High Sensitivity 12.2 ng/L (<3.5-35.0)
[2024-05-27 01:31] LABS: Influenza A PCR NEGATIVE (Negative); Influenza B PCR NEGATIVE (Negative); Resp Syncy Virus RNA Qual PCR NEGATIVE (Negative); SARS COV2 PCR INHOUSE NEGATIVE (Negative)
[2024-05-27] MEDS: Furosemide 40 MG/4 ML VIAL IVPUSH ×2 (01:48→18:15)
[2024-05-27] MEDS: methylPREDNISolone Sod Succ 125 MG/2 ML VIAL 60 MG IVPUSH (01:48)
[2024-05-27] MEDS: Albuterol Sulfate 5 MG, Albuterol Sulfate (0.083%) 2.5 MG 7.5 MG INHALE (01:52)
--- NOTE | 2024-05-27 02:00 | PC.NURSE ---
22 G IV line inserted into L hand, patient medicated per DEC.
--- NOTE | 2024-05-27 02:01 | PC.NURSE ---
RT at bedside to administer nebulizer treatment, patient noted to have labored breathing patter. Dr. Euceda notified, patient placed on BIPAP 30% and 10/5.
--- NOTE | 2024-05-27 02:14 | ECG_ITS ---
Test Reason : CHESTTIGHTNESS Blood Pressure : / mmHG Vent. Rate : 113 BPM Atrial Rate : 113 BPM P-R Int : 166 ms QRS Dur : 108 ms QT Int : 366 ms P-R-T Axes : 102 041 196 degrees QTc Int : 502 ms Sinus tachycardia with Premature atrial complexes Incomplete left bundle branch block Left ventricular hypertrophy with repolarization abnormality ( Sokolow-Vences ) Abnormal ECG When compared with ECG of 27-MAY-2024 00:20, Premature atrial complexes are now Present Referred By: Sharda Smith Electronically Signed By:ALBARO MUSTAFA
--- NOTE | 2024-05-27 02:28 | PC.NURSE ---
Patient reports sensation of tightness in his chest, Dr Smith notified. New order received for EKG and Morphine 2 mg IV push. bi technical leadsherwin Martin at bedside performing EKG.
[2024-05-27] MEDS: Morphine Sulfate 2 MG/ML CARTRIDGE IVPUSH (02:40)
[2024-05-27 05:29] LABS: Appearance Urine Clear; Color Urine Yellow; Glucose Urine UA Negative (Negative); Leukocyte Esterase Urine Negative (Negative); Nitrite Urine Negative (Negative); PH 5.5 (5.0-9.0); UMIC TRIGGER UACC YES; Urine Blood Negative (Negative); Urine Ketones Negative (Negative); Urine Protein 30 (1+) mg/dL (Neg-Trace)
[2024-05-27 05:32] LABS: Bacteria Urine None Seen (None Seen); RBC Urine 0-2 /HPF (0-2); Squamous Epithelial Cell Urine 0-2 /HPF (0-2); WBC Urine 0-5 /HPF (0-5)
[2024-05-27 05:45] LABS: Troponin-I High Sensitivity 24.5 ng/L (<3.5-35.0)
[2024-05-27] MEDS: Ibuprofen 600 MG TABLET PO (05:48)
[2024-05-27] MEDS: cefTRIAXone sodium 1 GM in 0.9 % Sodium Chloride 50 ML IV (06:12)
--- NOTE | 2024-05-27 06:15 | PC.NURSE ---
BIPAP d/mark, patient placed on NC at 3 LPM, tolerating well O2 sat 94-95%.
[2024-05-27 06:21] LABS: Lactic Acid 7.7 mmol/L (0.5-2.0)
[2024-05-27] MEDS: iohexoL 350 MG/ML 100 ML INFUS..BTL IV (06:30)
[2024-05-27] MEDS: Albumin Human 25 % 100 ML 133.33 ML IV ×2 (07:59→09:56)
[2024-05-27] MEDS: Furosemide 20 MG/2 ML VIAL IVPUSH ×2 (08:02)
[2024-05-27 08:03] LABS: Reflex Lactate? Lactic Acid Added
[2024-05-27] MEDS: 0.9 % Sodium Chloride 250 ML IV (08:10)
[2024-05-27 08:46] LABS: ~Lactic Acid-LAB USE ONLY 10.1 mmol/L (0.5-2.0)
--- NOTE | 2024-05-27 09:06 | PC.NURSE ---
MD Flower speaking with pt r/t plan of care, and provided reassuring pat to the shoulder to pt - pt postured at MD creating a fist and stated don't touch me
--- NOTE | 2024-05-27 09:24 | PHA.MEDREC ---
Addendum entered by Russ Banda RPh 05/27/24 10:11: Med rec was reviewed by [facility]. Called [facility] and spoke to Rebecca (application programmer analyst) and confirmed that pt takes clozapine 75 mg daily and 100 mg @1999. Last dose of clozapine was given on 05/26/2024. She also said that patient refuses to take tamsulosin. Original Note: Pharmacy Consult ? Medication Reconciliation Pharmacy has completed the medication reconciliation. Utilized list from [facility] [phone] to confirm med list.
[2024-05-27 10:16] LABS: Reflex Lactate? 2 Y
[2024-05-27 10:43] LABS: Lactic Acid 10.5 mmol/L (0.5-2.0)
--- NOTE | 2024-05-27 11:58 | PM.CNCAR ---
History of Present Illness History of Present Illness Date of Service: 05/27/24 Requesting physician: Emily Marcus Chief complaint: SOB Narrative: 59-year-old gentleman who we have been asked to see for ? Congestive heart failure. He has known history of hypertrophic obstructive cardiomyopathy. He has presented multiple times with sepsis and tachycardia. He is somewhat confused and unable to give any history. Also appears to be quite agitated and swearing. He is only saying that he was short of breath and use albuterol and then someone [facility] pain which was in appropriate . He is tachycardic to 120s and has saturations in 80s. He is not on any supplemental oxygen and we are just starting him on some oxygen now. He is unable to give history currently. Physical examination is also very limited currently. CT scan is showing bilateral infiltrates with prominent right-sided compared to left-sided changes-can be asymmetric pulmonary edema versus infectious etiology. EKGs showing sinus tachycardia with left ventricle hypertrophy. [facility] Past Medical History Medical History Osteoarthritis GERD without esophagitis Vitamin D deficiency Schizoaffective disorder Diabetes mellitus HOCM (hypertrophic obstructive cardiomyopathy) Congestive heart failure COVID-19 Thought disorder Nocturnal hypoxemia Constipation COPD (chronic obstructive pulmonary disease) JUDY (obstructive sleep apnea) Smoker BPH (benign prostatic hyperplasia) Diabetes mellitus Obesity (BMI 30-39.9) Pure hypercholesterolemia Prolonged QT interval Essential hypertension Aggression Hypertension Coronary artery disease CHF (congestive heart failure) Cardiac arrhythmia Myocardial infarction Family History Family History Father Medical history unknown Mother Medical history unknown Sister Alive and well Surgical History Surgical History History of ankle surgery History of intestinal surgery History of transurethral resection of prostate Social History Social History Household Members: Other Household Members Other:: Roommate Housing: Other Housing Other:: [facility] Do you presently have visiting nurse or other home services: No Alcohol intake: never Comment: 1:1 sitter Patient Tobacco Use Status: Former Tobacco user Tobacco use type: Cigarette Cigarette Packs Per Day: 0.5 Cigarettes Per Day: 10 Years Smoked: Many Smoked in Last 30 Days: Yes e-Cigarette/Vaping Use: Currently Using Use of substances other than those prescribed or required for medical reasons: No Substance Use Type: Unknown Advance Directives: Yes Advance Directives on File: Yes Advance Directives Date on File: 01/14/24 Do you have a plan to hurt others: No Plan service: No Current occupational status: disabled Sexual orientation: Straight/Heterosexual Cognitive needs: Yes Hearing needs: No Vision needs: Yes Meds Allergies Allergy/AdvReac Type Severity Reaction Status Date / Time lithium [[place]] Allergy Severe Toxicity Verified 05/27/24 00:23 thiothixene Allergy Severe Swelling Verified 05/27/24 00:23 amoxicillin Allergy Mild Nose Bleed Verified 05/27/24 00:23 benztropine Allergy Unknown benztropine Verified 05/27/24 00:23 mesylate- unknown gabapentin [From NEURONTIN] Allergy Unknown Unknown Verified 05/27/24 00:23 fluphenazine [From Prolixin] Allergy Unknown Verified 05/27/24 00:23 barium sulfate AdvReac Intermediate Nausea and Verified 05/27/24 00:23 [BARIUM SULFATE] Vomiting haloperidol AdvReac Intermediate Muscle Verified 05/27/24 00:23 tension in legs diphenhydramine AdvReac Unknown urinary Verified 05/27/24 00:23 [From Benadryl] retention Home Medications ?Medication ?Instructions ?Recorded ?Confirmed ?Last Taken ?Type clozapine 100 mg tablet 100 mg PO DAILY@199904/28/24 05/27/24 05/26/24 History acetaminophen 325 mg tablet 650 mg PO Q6H PRN Pain (Scale 05/27/24 05/27/24 Unknown History (Tylenol) Score 1-3) aluminum-mag hydroxide-simethicone 10 ml PO TID PRN Indigestion 05/27/24 05/27/24 Unknown History 200 mg-200 mg-20 mg/5 mL oral susp lurasidone 60 mg tablet 60 mg PO BEDTIME@1800 05/27/24 05/27/24 Unknown History metoprolol tartrate 25 mg tablet 25 mg PO QID 05/27/24 05/27/24 Unknown History nicotine (polacrilex) 4 mg buccal 4 mg buccal Q2H PRN Smoking 05/27/24 05/27/24 Unknown History lozenge Cessation nitroglycerin 0.4 mg sublingual 0.4 mg sublingual Q5M PRN Chest 05/27/24 05/27/24 Unknown History tablet Pain Physical Exam Vital Signs: Vital Signs: Last Vital Signs Temp 98.5 F 05/27/24 11:56 Pulse 105 H 05/27/24 11:56 Resp 26 H 05/27/24 11:56 BP 117/68 05/27/24 11:56 Pulse Ox 93 05/27/24 11:56 O2 Del Method Room Air 05/27/24 11:56 O2 Flow Rate 2 05/27/24 08:12 Oxygen Flow Rate 2 05/27/24 00:21 BMI result Body Mass Index 33.2 GENERAL APPEARANCE: Tachypneic, agitated. Eating his lunch. NECK: No obvious JVD but he is not very cooperative with examination. SKIN: no suspicious lesions, warm and dry. HEART: Systolic murmur all over the precordium, regular rate and rhythm. LUNGS: clear to auscultation bilaterally. ABDOMEN: soft, nontender. EXTREMITIES: no edema. PERIPHERAL PULSES: equal. NEUROLOGIC: Agitated. Swearing. Was hypoxic at the time I interviewed/examined him and he was started on some supplemental oxygen after that. Objective Labs and Meds 05/27/24 00:47 05/27/24 00:47 Lab results: Laboratory Results - last 24 hr 05/27/24 05/27/24 05/27/24 00:47 00:52 05:20 WBC 8.2 RBC 3.90 L Hgb 10.4 L Hct 33.6 L MCV 86.2 MCH 26.7 L MCHC 31.0 RDW 16.7 H Plt Count 160 D MPV 11.5 Immature Gran % (Auto) 0.6 H Neut % (Auto) 78.0 H Lymph % (Auto) 12.0 L [place] % (Auto) 7.4 Eos % (Auto) 1.1 Baso % (Auto) 0.9 Lymph # (Auto) 1.0 L [place] # (Auto) 0.6 Eos # (Auto) 0.1 Baso # (Auto) 0.1 Abs Immat Gran (auto) 0.05 H Absolute Neuts (auto) 6.4 Absolute Nucleated RBC 0.000 Nucleated RBC % (auto) 0.0 VBG pH 7.50 H VBG pCO2 33 VBG pO2 110 VBG HCO3 26 VBG O2 Saturation 99.0 VBG Base Excess 3.4 Sodium 144 Potassium 3.9 Chloride 109 H Carbon Dioxide 23 Anion Gap 16 BUN 16 Creatinine 1.06 Estim Creat Clear Calc 87.2 Estimated GFR > 60 Random Glucose 213 H Lactic Acid Lactic Acid F/U @ 2Hr Lactic Acid F/U @ 4Hr Calcium 9.4 Magnesium 1.9 Total Bilirubin 0.4 Direct Bilirubin 0.1 AST 13 ALT 18 Alkaline Phosphatase 71 Troponin I High Sens 12.2 24.5 D B-Natriuretic Peptide 616 H Total Protein 6.2 L Albumin 3.7 Urine Color Yellow Urine Appearance Clear Urine pH 5.5 Ur Specific [place] 1.010 Urine Protein 30 (1+) H Urine Glucose (UA) Negative Urine Ketones Negative Urine Blood Negative Urine Nitrite Negative Ur Leukocyte Esterase Negative Urine RBC 0-2 Urine WBC 0-5 Ur Squamous Epith Cells 0-2 Urine Bacteria None Seen Hyaline Casts 3-5 Influenza Type A (PCR) NEGATIVE Influenza Type B (PCR) NEGATIVE RSV RNA Qual (PCR) NEGATIVE SARS-CoV-2 RNA (RT-PCR) NEGATIVE 05/27/24 05/27/24 05/27/24 05:58 08:14 09:56 WBC RBC Hgb Hct MCV MCH MCHC RDW Plt Count MPV Immature Gran % (Auto) Neut % (Auto) Lymph % (Auto) [place] % (Auto) Eos % (Auto) Baso % (Auto) Lymph # (Auto) [place] # (Auto) Eos # (Auto) Baso # (Auto) Abs Immat Gran (auto) Absolute Neuts (auto) Absolute Nucleated RBC Nucleated RBC % (auto) VBG pH VBG pCO2 VBG pO2 VBG HCO3 VBG O2 Saturation VBG Base Excess Sodium Potassium Chloride Carbon Dioxide Anion Gap BUN Creatinine Estim Creat Clear Calc Estimated GFR Random Glucose Lactic Acid 7.7 H* 10.5 H* Lactic Acid F/U @ 2Hr 10.1 H* Lactic Acid F/U @ 4Hr Calcium Magnesium Total Bilirubin Direct Bilirubin AST ALT Alkaline Phosphatase Troponin I High Sens B-Natriuretic Peptide Total Protein Albumin Urine Color Urine Appearance Urine pH Ur Specific [place] Urine Protein Urine Glucose (UA) Urine Ketones Urine Blood Urine Nitrite Ur Leukocyte Esterase Urine RBC Urine WBC Ur Squamous Epith Cells Urine Bacteria Hyaline Casts Influenza Type A (PCR) Influenza Type B (PCR) RSV RNA Qual (PCR) SARS-CoV-2 RNA (RT-PCR) 05/27/24 10:47 WBC RBC Hgb Hct MCV MCH MCHC RDW Plt Count MPV Immature Gran % (Auto) Neut % (Auto) Lymph % (Auto) [place] % (Auto) Eos % (Auto) Baso % (Auto) Lymph # (Auto) [place] # (Auto) Eos # (Auto) Baso # (Auto) Abs Immat Gran (auto) Absolute Neuts (auto) Absolute Nucleated RBC Nucleated RBC % (auto) VBG pH VBG pCO2 VBG pO2 VBG HCO3 VBG O2 Saturation VBG Base Excess Sodium Potassium Chloride Carbon Dioxide Anion Gap BUN Creatinine Estim Creat Clear Calc Estimated GFR Random Glucose Lactic Acid Lactic Acid F/U @ 2Hr Lactic Acid F/U @ 4Hr 11.0 H* Calcium Magnesium Total Bilirubin Direct Bilirubin AST ALT Alkaline Phosphatase Troponin I High Sens B-Natriuretic Peptide Total Protein Albumin Urine Color Urine Appearance Urine pH Ur Specific [place] Urine Protein Urine Glucose (UA) Urine Ketones Urine Blood Urine Nitrite Ur Leukocyte Esterase Urine RBC Urine WBC Ur Squamous Epith Cells Urine Bacteria Hyaline Casts Influenza Type A (PCR) Influenza Type B (PCR) RSV RNA Qual (PCR) SARS-CoV-2 RNA (RT-PCR) Imaging Radiologist's impression: Impressions Chest X-Ray 05/27/24 00:53 IMPRESSION: *Technically suboptimal radiograph of the chest secondary to markedly underpenetrated radiographic technique. *Low lung lungs. *Findings suspicious for interstitial disease within the right lung which may represent visualization of edema or atypical/viral infection. Consider further evaluation with repeat chest radiographs as clinically indicated. *Findings suspicious for mild left lower lobe atelectasis and/or consolidation. Chest CTA 05/27/24 06:36 IMPRESSION: *CT pulmonary angiogram negative for pulmonary emboli. *Bilateral diffuse pulmonary groundglass opacities with subpleural sparing. Findings are most pronounced in the right lung. Findings are suspicious for asymmetric alveolar pulmonary edema. Diffuse pulmonary infection or pulmonary hemorrhage could have a similar appearance. *Small right and trace left dependent layering low density pleural effusions. VTE: negative Assessment and Plan (1) HOCM (hypertrophic obstructive cardiomyopathy): Status: Acute (2) Hypoxic respiratory failure: Status: Acute Plan [age] year gentleman presenting with shortness of breath and lactic acidosis. He has known history of hypertrophic obstructive cardiomyopathy. Unable to give any history currently. Hypoxic and maybe that is why more confused. He has asymmetric infiltrates on CT chest which is possible with mitral valve regurgitation. Unable to examine him currently because of his mental status. Given hypoxia and tachypnea he should be supported with BiPAP. Give 40 mg IV Lasix bid. Avoid any vasodilators on him currently. Stop the nitroglycerin. Continue po metoprolol. He has presented multiple times with infections and I think he should be broadly covered with antibiotics for now. Overall quite sick and has significant lactic acidosis. We will arrange echo to asses LVOT gradient. We will follow along with you. Thank you for allowing me to participate in the care of your patient. Please feel free to contact me if you have any questions. Procedures Date of Service Date of Service: 05/27/24
[2024-05-27 11:59] LABS: Reflex Lactate? Lactic Acid Added
--- NOTE | 2024-05-27 12:12 | MHC.EDTECH ---
Patient requesting a pitcher of cranberry juice. This tech offered suger free radha deniz, emmy per ISAIAH Mayo. Patient accepted. All current needs met.
[2024-05-27 12:20] LABS: Glucose, Whole Blood 297 mg/dL (60-115)
--- NOTE | 2024-05-27 12:21 | PC.NURSE ---
pt has not had any urine output since 40mg IVP lasix given this AM approx 0800. informed Emily HAILE of pts minimal urine output on overnight. plan for bladder scan and straight cath as pt has previously refused vences cath. PCT [place] to bladder scan pt at this time after requesting pt to void first.
--- NOTE | 2024-05-27 12:47 | PM.IMHP ---
History of Present Illness Date of Service: 05/27/24 Chief Complaint: SOB 59-year-old man with a history of schizoaffective disorder presenting to the ER with worsening shortness of breath over the last several days. He reports he has been unable to lay flat and he continues to smoke cigarettes. He denied any fever, chills, nausea, vomiting, diarrhea, recent illness, sick contacts, sputum production he was found to be hypoxic by EMS with oxygen saturation of 85% on room air. He was also noted to have elevated lactic acid with peaked at 11 with no complaints of abdominal pain. Chest CTA was negative for pulmonary embolus but showed bilateral diffuse pulmonary ground-glass opacities with question of pulmonary edema and pleural effusions. He has been tachycardic and tachypneic but received a large amount of albuterol in the ER which may be contributing to this. No leukocytosis noted stable H&H. VBG 7.37/28/137/17. Other than albuterol he also received Solu-Medrol, IV Lasix totaling 80 mg IV, morphine, Rocephin, Tylenol, ibuprofen, albumin. He will be admitted for further management and treatment of acute congestive heart failure. Review of Systems Review of Systems: Denies any recent fever chills or decrease in appetite respiratory See HPI cardiovascular denied chest pain gastrointestinal denies any dysphagia abdominal pain nausea vomiting or diarrhea genitourinary denies any dysuria frequency or hematuria musculoskeletal denies any joint pain or swelling neuropsych denies any weakness or seizures all other systems reviewed are negative [facility] Medical History Osteoarthritis GERD without esophagitis Vitamin D deficiency Schizoaffective disorder Diabetes mellitus HOCM (hypertrophic obstructive cardiomyopathy) Congestive heart failure COVID-19 Thought disorder Nocturnal hypoxemia Constipation COPD (chronic obstructive pulmonary disease) JUDY (obstructive sleep apnea) Smoker BPH (benign prostatic hyperplasia) Diabetes mellitus Obesity (BMI 30-39.9) Pure hypercholesterolemia Prolonged QT interval Essential hypertension Aggression Hypertension Coronary artery disease CHF (congestive heart failure) Cardiac arrhythmia Myocardial infarction Family History Father Medical history unknown Mother Medical history unknown Sister Alive and well Surgical History History of ankle surgery History of intestinal surgery History of transurethral resection of prostate Social History Household Members: Other Household Members Other:: Roommate Housing: Other Housing Other:: [facility] Do you presently have visiting nurse or other home services: No Alcohol intake: never Comment: 1:1 sitter Patient Tobacco Use Status: Current everyday Tobacco user Tobacco use type: Cigarette Cigarette Packs Per Day: 0.5 Cigarettes Per Day: 10 Years Smoked: Many e-Cigarette/Vaping Use: Currently Using Substance Use Type: Unknown Advance Directives Date on File: 01/14/24 service: No Current occupational status: disabled Sexual orientation: Straight/Heterosexual Cognitive needs: Yes Hearing needs: No Vision needs: Yes Meds Allergies Allergy/AdvReac Type Severity Reaction Status Date / Time lithium [[place]] Allergy Severe Toxicity Verified 05/27/24 00:23 thiothixene Allergy Severe Swelling Verified 05/27/24 00:23 amoxicillin Allergy Mild Nose Bleed Verified 05/27/24 00:23 benztropine Allergy Unknown benztropine Verified 05/27/24 00:23 mesylate- unknown gabapentin [From NEURONTIN] Allergy Unknown Unknown Verified 05/27/24 00:23 fluphenazine [From Prolixin] Allergy Unknown Verified 05/27/24 00:23 barium sulfate AdvReac Intermediate Nausea and Verified 05/27/24 00:23 [BARIUM SULFATE] Vomiting haloperidol AdvReac Intermediate Muscle Verified 05/27/24 00:23 tension in legs diphenhydramine AdvReac Unknown urinary Verified 05/27/24 00:23 [From Benadryl] retention Active Medications: Current Medications Acetaminophen (Acetaminophen 325 Mg Tablet) 650 mg PO Q6H PRN PRN Reason: Pain, Mild (Pain Scale 1-3), fever or headache Albuterol/Ipratropium (Albuterol/Iprat 2.5/0.5mg 3 Ml Ampul.Neb) 3 ml INHALE RQ4H WHILE AWAKE OZZY Calcium Carbonate (Calcium Carbonate 750 Mg Tab.Chew) 750 mg PO Q4H PRN PRN Reason: Heartburn Enoxaparin Sodium (Enoxaparin Sodium 40 Mg/0.4 Ml Syringe) 40 mg SUBCUT Q24H OZZY Magnesium Hydroxide (Milk Of Magnesia 30 Ml Oral.Susp) 30 ml PO DAILY PRN PRN Reason: Constipation Melatonin (Melatonin 3 Mg Tablet) 6 mg PO BEDTIME PRN PRN Reason: Insomnia Methylprednisolone Sodium Succinate (Methylprednisolone Sod Succ 40 Mg/Ml Vial) 40 mg IVPUSH Q12H OZZY Ondansetron HCl (Ondansetron Hcl 4 Mg/2 Ml Vial) 4 mg IVPUSH Q8H PRN PRN Reason: Nausea and Vomiting Sodium Chloride (0.9 % Sodium Chloride Flush 3 Ml Syringe) 3 ml IVFLUSH QSHIFT [facility] Home Medications ?Medication ?Instructions ?Recorded ?Confirmed ?Last Taken ?Type clozapine 100 mg tablet 100 mg PO DAILY@199904/28/24 05/27/24 05/26/24 History acetaminophen 325 mg tablet 650 mg PO Q6H PRN Pain (Scale 05/27/24 05/27/24 Unknown History (Tylenol) Score 1-3) aluminum-mag hydroxide-simethicone 10 ml PO TID PRN Indigestion 05/27/24 05/27/24 Unknown History 200 mg-200 mg-20 mg/5 mL oral susp lurasidone 60 mg tablet 60 mg PO BEDTIME@1800 05/27/24 05/27/24 Unknown History metoprolol tartrate 25 mg tablet 25 mg PO QID 05/27/24 05/27/24 Unknown History nicotine (polacrilex) 4 mg buccal 4 mg buccal Q2H PRN Smoking 05/27/24 05/27/24 Unknown History lozenge Cessation nitroglycerin 0.4 mg sublingual 0.4 mg sublingual Q5M PRN Chest 05/27/24 05/27/24 Unknown History tablet Pain Physical Exam Vital Signs and Narrative: Vital Signs: Last Vital Signs Temp 98.5 F 05/27/24 11:56 Pulse 105 H 05/27/24 11:56 Resp 26 H 05/27/24 11:56 BP 117/68 05/27/24 11:56 Pulse Ox 93 05/27/24 11:56 O2 Del Method Room Air 05/27/24 11:56 O2 Flow Rate 2 05/27/24 08:12 Oxygen Flow Rate 2 05/27/24 00:21 BMI result Body Mass Index 33.2 Appearing in no acute distress head is normocephalic atraumatic eyes pupils are PERRLA sclera is anicteric mouth throat mucous membranes are intact and moist neck is supple no lymphadenopathy, no JVD noted lung sounds rales. diminished heart regular rate rhythm, clear S1, S2 positive bowel sounds, abdomen is soft, nontender neuro patient is alert x3, no focal deficits, +2 LE edema Results Labs 05/27/24 00:47 05/27/24 00:47 Labs: Laboratory Results - last 24 hr 05/27/24 05/27/24 05/27/24 00:47 00:52 05:20 MCV 86.2 MCH 26.7 L MCHC 31.0 RDW 16.7 H Plt Count 160 D MPV 11.5 Immature Gran % (Auto) 0.6 H Neut % (Auto) 78.0 H Lymph % (Auto) 12.0 L [place] % (Auto) 7.4 Eos % (Auto) 1.1 Baso % (Auto) 0.9 Lymph # (Auto) 1.0 L [place] # (Auto) 0.6 Eos # (Auto) 0.1 Baso # (Auto) 0.1 Abs Immat Gran (auto) 0.05 H Absolute Neuts (auto) 6.4 Absolute Nucleated RBC 0.000 Nucleated RBC % (auto) 0.0 VBG pH 7.50 H VBG pCO2 33 VBG pO2 110 VBG HCO3 26 VBG O2 Saturation 99.0 VBG Base Excess 3.4 Anion Gap 16 Estim Creat Clear Calc 87.2 Estimated GFR > 60 POC Glucose Random Glucose 213 H Lactic Acid Lactic Acid F/U @ 2Hr Lactic Acid F/U @ 4Hr Calcium 9.4 Magnesium 1.9 Total Bilirubin 0.4 Direct Bilirubin 0.1 AST 13 ALT 18 Alkaline Phosphatase 71 Troponin I High Sens 12.2 24.5 D B-Natriuretic Peptide 616 H Total Protein 6.2 L Albumin 3.7 Urine Color Yellow Urine Appearance Clear Urine pH 5.5 Ur Specific [place] 1.010 Urine Protein 30 (1+) H Urine Glucose (UA) Negative Urine Ketones Negative Urine Blood Negative Urine Nitrite Negative Ur Leukocyte Esterase Negative Urine RBC 0-2 Urine WBC 0-5 Ur Squamous Epith Cells 0-2 Urine Bacteria None Seen Hyaline Casts 3-5 Influenza Type A (PCR) NEGATIVE Influenza Type B (PCR) NEGATIVE RSV RNA Qual (PCR) NEGATIVE SARS-CoV-2 RNA (RT-PCR) NEGATIVE 05/27/24 05/27/24 05/27/24 05:58 08:14 09:56 MCV MCH MCHC RDW Plt Count MPV Immature Gran % (Auto) Neut % (Auto) Lymph % (Auto) [place] % (Auto) Eos % (Auto) Baso % (Auto) Lymph # (Auto) [place] # (Auto) Eos # (Auto) Baso # (Auto) Abs Immat Gran (auto) Absolute Neuts (auto) Absolute Nucleated RBC Nucleated RBC % (auto) VBG pH VBG pCO2 VBG pO2 VBG HCO3 VBG O2 Saturation VBG Base Excess Anion Gap Estim Creat Clear Calc Estimated GFR POC Glucose Random Glucose Lactic Acid 7.7 H* 10.5 H* Lactic Acid F/U @ 2Hr 10.1 H* Lactic Acid F/U @ 4Hr Calcium Magnesium Total Bilirubin Direct Bilirubin AST ALT Alkaline Phosphatase Troponin I High Sens B-Natriuretic Peptide Total Protein Albumin Urine Color Urine Appearance Urine pH Ur Specific [place] Urine Protein Urine Glucose (UA) Urine Ketones Urine Blood Urine Nitrite Ur Leukocyte Esterase Urine RBC Urine WBC Ur Squamous Epith Cells Urine Bacteria Hyaline Casts Influenza Type A (PCR) Influenza Type B (PCR) RSV RNA Qual (PCR) SARS-CoV-2 RNA (RT-PCR) 05/27/24 05/27/24 10:47 12:15 MCV MCH MCHC RDW Plt Count MPV Immature Gran % (Auto) Neut % (Auto) Lymph % (Auto) [place] % (Auto) Eos % (Auto) Baso % (Auto) Lymph # (Auto) [place] # (Auto) Eos # (Auto) Baso # (Auto) Abs Immat Gran (auto) Absolute Neuts (auto) Absolute Nucleated RBC Nucleated RBC % (auto) VBG pH VBG pCO2 VBG pO2 VBG HCO3 VBG O2 Saturation VBG Base Excess Anion Gap Estim Creat Clear Calc Estimated GFR POC Glucose 297 H Random Glucose Lactic Acid Lactic Acid F/U @ 2Hr Lactic Acid F/U @ 4Hr 11.0 H* Calcium Magnesium Total Bilirubin Direct Bilirubin AST ALT Alkaline Phosphatase Troponin I High Sens B-Natriuretic Peptide Total Protein Albumin Urine Color Urine Appearance Urine pH Ur Specific [place] Urine Protein Urine Glucose (UA) Urine Ketones Urine Blood Urine Nitrite Ur Leukocyte Esterase Urine RBC Urine WBC Ur Squamous Epith Cells Urine Bacteria Hyaline Casts Influenza Type A (PCR) Influenza Type B (PCR) RSV RNA Qual (PCR) SARS-CoV-2 RNA (RT-PCR) Imaging Radiologist's Impressions: Impressions Chest X-Ray 05/27/24 00:53 IMPRESSION: *Technically suboptimal radiograph of the chest secondary to markedly underpenetrated radiographic technique. *Low lung lungs. *Findings suspicious for interstitial disease within the right lung which may represent visualization of edema or atypical/viral infection. Consider further evaluation with repeat chest radiographs as clinically indicated. *Findings suspicious for mild left lower lobe atelectasis and/or consolidation. Chest CTA 05/27/24 06:36 IMPRESSION: *CT pulmonary angiogram negative for pulmonary emboli. *Bilateral diffuse pulmonary groundglass opacities with subpleural sparing. Findings are most pronounced in the right lung. Findings are suspicious for asymmetric alveolar pulmonary edema. Diffuse pulmonary infection or pulmonary hemorrhage could have a similar appearance. *Small right and trace left dependent layering low density pleural effusions. VTE: negative Assessment and Plan (1) Hypoxic respiratory failure: Status: Acute (2) Congestive heart failure: Qualifiers: Heart failure chronicity: acute on chronic Heart failure type: unspecified Qualified Code(s): I50.9 - Heart failure, unspecified Status: Acute Plan 59 year old man admitted with acute on chronic HFrEF. HFREF with hx of HOCM Received 80 mg IV lasix in ED continue lasix 40 mg IV BID BNP 600's, lower than last admission Seen by pulmonology>continue diuresis monitor intake and output closely daily weights cardiology consultation COPD, possible mild exacerbation IV solumedrol for now prn duonebs d/t lactic acidosis supplemental oxygen as needed to keep o2 sats >90% ? ILD on CTA, pulmonary consultation pending empiric abx for possible CAP/bronchitis Lactic acidosis received more than 30mg albuterol in the ED ? Type B lactic acidosis from albuterol VBG wnl HLD asa and statin Hx of HOCM hold BB due to acute CHF Bipolar disorder continue home medications Smoker NRT offered Patient stated that he would not quit smoking Obesity class I. BMI 33.2 Weight management GERD ppi DVT prophylaxis with Lovenox Full code Quality Stroke Does the patient have a stroke diagnosis?: No VTE Prior VTE?: No VTE Risk Level:: Medical - moderate - high VTE Device Contraindication: Treatment Not Indicated VTE Drug Contraindication: N/A - Med Ordered
--- NOTE | 2024-05-27 13:00 | CA_ITS ---
Transthoracic Echocardiogram Patient (Last, First, Middle): Navid Carvalho E Gender: Male Date of : 1965 Age: 59 Procedure Date: 05/27/2024 Procedure Type: Transthoracic Echocardiogram Location: ER Height: 175.26 cm Weight: 101.61 kg BSA: 2.17 m2 Heart Rate: 110 bpm BP: 117 / 68 mmHg Paralegal Instructor: CHAPARRITA Referring MD: Javier Bah MD Symptoms: HOCM. assess LVOT gradient, assess MR. Study Quality: Technically Difficult w/Contrast ECG Rhythm: Tachycardia Conclusions: - Normal left ventricular size and systolic function. There is severely increased left ventricular wall thickness. The visually estimated ejection fraction is between 65-70%. - Peak gradient in the LV cavity 38 mm Hg, No obvious LVOT gradient noted but technically challenging study due to patient's significant dyspnea. - There is a small pericardial effusion. Findings Procedure Information Contrast agent, definity, is being given per protocol without apparent complications. Left Ventricle Normal left ventricular size and systolic function. There is severely increased left ventricular wall thickness. The visually estimated ejection fraction is between 65-70%. There is no evidence of regional wall motion abnormalities. Diastolic function is indeterminate on the basis of available data. Right Ventricle Normal right ventricular cavity size and systolic function. Atria The left atrium is moderately dilated. The right atrium is normal in size. Aortic Valve Normal aortic valve structure and function. There is no aortic valve stenosis. There is no aortic valve regurgitation. Mitral Valve The mitral valve appears normal. There is mild mitral valve regurgitation. There is no mitral valve stenosis. Pulmonic Valve The pulmonic valve is normal. There is trace pulmonic valve regurgitation. Tricuspid Valve Normal tricuspid valve structure. There is no tricuspid valve regurgitation. Normal right atrial pressure. Moderate to severe pulmonary hypertension is present. Great Vessels There is mild dilatation of the ascending aorta measuring 3.70 cm. The visualized portions of the pulmonary artery and branches are normal. Venous The inferior vena cava is normal in size and collapses greater than 50% with inspiration. Pericardium/Pleural There is a small pericardial effusion. There are no definitive echocardiographic findings of tamponade physiology. Prior Study Comparison Changes noted compared to prior study dated: 01/16/2024. Small pericardial effusion noted. Mod to severe pulm HTN, no significant LVOT gradient. Measurements 2D Linear Measurements IVSd: 1.35 0.6-0.9/0.6-1.0 cm LVIDd: 4.62 3.9-5.3/4.2-5.9 cm LVIDd Index: 2.13 2.4-3.2/2.2-3.1 cm/m2 LVIDs: 2.37 2.0-3.6 cm LVPWd: 1.50 0.7-1.1 cm LA Diam: 3.50 2.7-3.8/3.0-4.0 cm LAIDs Index: 1.61 1.5-2.3 cm/m2 LV Mass: 330.95 67-162/88-224 g LV Mass Index: 152.51 43-95/49-115 g/m2 LVOT Diam: 2.20 3.0+(-)1.3 cm 2D Systolic Function EF 4C: 62.70 >55% EF 2C: 64.60 >55% Mitral Valve MV Pk E: 1.43 MV Decel Time: 141.00 E'Lateral: 9.78 E'Medial: 6.16 E/E' Med: 23.20 E/E' Lat: 14.60 PHT: 41.00 MVA PHT: 5.37 Decel [place]: 10.19 Aortic Valve AoV Pk Deshawn: 2.97 AoV Mn Deshawn: 1.73 AoV VTI: 0.44 AoV Pk Grad: 35.00 Aov Mn Grad: 15.00 CHIKIS Cont.VTI: 1.41 LVOT LVOT Pk Deshawn: 1.37 LVOT Mn Deshawn: 0.87 LVOT VTI: 0.16 LVOT Pk Grad: 8.00 LVOT Mn Grad: 4.00 LVOT Diam: 2.20 LVOT Area: 3.80 Diastolic Function MV Pk E: 1.43 E'Medial: 6.16 E/E' Med: 23.20 E' Laterial: 9.78 E/E' Lat: 14.60 Right Ventricle TAPSE (mm): 20.90 TVS' Deshawn: 14.55 Tricuspid Valve TR Pk Deshawn: 3.44 TR Pk Grad: 47.00 RA Press: 8.00 RVSP: 55.00 Great Vessels Aorta Sinus of Valsalva: 3.60 2.0-3.5 cm Ao Asc: 3.70 2.1-3.4 cm Pulmonary Valve PV Pk Deshawn: 1.29 Peak PV Grad: 7.00 Updated in Other Vendor System with Status of Final Javier Bah MD electronically signed on 05/27/2024 6:29:55 PM with status of Final
[2024-05-27 14:04] LABS: VBG Base Excess -6.7 mmol/L; VBG HCO3 17 mmol/L (22-26); VBG pCO2 28 mmHg; VBG pH 7.37 (7.32-7.43); VBG pO2 137 mmHg
--- NOTE | 2024-05-27 14:05 | PC.NURSE ---
pt yelling out in the room, agitated and making paranoid statements about his roommate. requested PRN medication from Emily HAILE
[2024-05-27 14:06] LABS: Venous Blood Gas Refer to POC result
--- NOTE | 2024-05-27 14:13 | PC.NURSE ---
cardiology at bedside to complete ECHO
[2024-05-27 14:19] LABS: ~Lactic Acid-LAB USE ONLY 9.6 mmol/L (0.5-2.0)
[2024-05-27] MEDS: Metoprolol Tartrate 25 MG TABLET PO ×3 (14:54→22:20)
[2024-05-27] MEDS: Enoxaparin Sodium 40 MG/0.4 ML SYRINGE SUBCUT (14:54)
[2024-05-27] MEDS: cloZAPine 25 MG TABLET 75 MG PO (14:54)
[2024-05-27] MEDS: Piperacillin Sodium/Tazobactam 3.375 GM in 0.9 % Sodium Chloride 50 ML IV ×2 (14:55→22:29)
--- NOTE | 2024-05-27 14:59 | PM.CNPUL ---
History of Present Illness History of Present Illness Consult date: 05/27/24 Chief complaint: Dyspnea Narrative: 67-year-old gentleman with underlying schizoaffective disorder, significant HOCM with dilated left atrium and diastolic dysfunction, decreased diffusion capacity, but no fixed obstruction, JUDY admitted on 05/27/2024 for worsening dyspnea and hypoxia. On ER evaluation patient with orthopnea, lower extremity edema, CT chest with bilateral pleural effusions and pulmonary edema. Started on empiric diuresis. Patient also administered 27.5 mg of albuterol with development of significant tachycardia and jitteriness. Review of Systems Constitutional: Constitutional: Denies daytime sleepiness, Denies excessive sweating, Denies fatigue, Denies fever(s), Denies lethargy, Denies malaise, Denies night sweats, Denies snoring and Denies weight loss Eyes: Eyes: Denies blurry vision and Denies itchy eyes ENT: Denies nasal congestion, Denies post nasal drip, Denies sinus pain, Denies sinus pressure and Denies other ( Thrush) Cardiovascular: Cardiovascular: Denies chest pain, Reports pedal edema, Reports dyspnea, Reports dyspnea on exertion, Reports orthopnea and Denies paroxysmal nocturnal dyspnea Respiratory: Respiratory: Denies cough, Denies hemoptysis, Denies excessive phlegm production, Reports dyspnea, Reports dyspnea on exertion, Denies snoring and Denies wheezing Gastrointestinal: Gastrointestinal: Denies abdominal pain and Denies heartburn Musculoskeletal: Musculoskeletal: Denies myalgias, Denies arthralgias and Denies joint swelling Integumentary/Breasts: Skin/Breast: Denies rash Neurologic: Denies memory loss and Denies seizure-like activity Psychiatric: Psychiatric: Denies abnormal sleep pattern, Denies anxiety and Denies memory loss Endocrine: Endocrine: Denies excessive sweating, Denies fatigue and Denies heat intolerance Hematologic/Lymphatic: Hematologic/Lymphatic: Denies easy bruising Allergic/Immunologic: Allergic/Immunologic: Denies itchy eyes, Denies seasonal rhinorrhea and Denies wheezing PMFSH Past Medical History Medical History Osteoarthritis GERD without esophagitis Vitamin D deficiency Schizoaffective disorder Diabetes mellitus HOCM (hypertrophic obstructive cardiomyopathy) Congestive heart failure COVID-19 Thought disorder Nocturnal hypoxemia Constipation COPD (chronic obstructive pulmonary disease) JUDY (obstructive sleep apnea) Smoker BPH (benign prostatic hyperplasia) Diabetes mellitus Obesity (BMI 30-39.9) Pure hypercholesterolemia Prolonged QT interval Essential hypertension Aggression Hypertension Coronary artery disease CHF (congestive heart failure) Cardiac arrhythmia Myocardial infarction Family History Family History Father Medical history unknown Mother Medical history unknown Sister Alive and well Surgical History Surgical History History of ankle surgery History of intestinal surgery History of transurethral resection of prostate Social History Social History Household Members: Other Household Members Other:: Roommate Housing: Other Housing Other:: [facility] Do you presently have visiting nurse or other home services: No Alcohol intake: never Comment: 1:1 sitter Patient Tobacco Use Status: Current everyday Tobacco user Tobacco use type: Cigarette Cigarette Packs Per Day: 0.5 Cigarettes Per Day: 10 Years Smoked: Many Smoked in Last 30 Days: Yes e-Cigarette/Vaping Use: Currently Using Use of substances other than those prescribed or required for medical reasons: No Substance Use Type: Unknown Advance Directives: Yes Advance Directives on File: Yes Advance Directives Date on File: 01/14/24 Do you have a plan to hurt others: No Plan Nutrition Risks: No Nutritional Risk service: No Current occupational status: disabled Sexual orientation: Straight/Heterosexual Cognitive needs: Yes Hearing needs: No Vision needs: Yes Meds Allergies Allergy/AdvReac Type Severity Reaction Status Date / Time lithium [[place]] Allergy Severe Toxicity Verified 05/27/24 00:23 thiothixene Allergy Severe Swelling Verified 05/27/24 00:23 amoxicillin Allergy Mild Nose Bleed Verified 05/27/24 00:23 benztropine Allergy Unknown benztropine Verified 05/27/24 00:23 mesylate- unknown gabapentin [From NEURONTIN] Allergy Unknown Unknown Verified 05/27/24 00:23 fluphenazine [From Prolixin] Allergy Unknown Verified 05/27/24 00:23 barium sulfate AdvReac Intermediate Nausea and Verified 05/27/24 00:23 [BARIUM SULFATE] Vomiting haloperidol AdvReac Intermediate Muscle Verified 05/27/24 00:23 tension in legs diphenhydramine AdvReac Unknown urinary Verified 08/20/24 00:23 [From Benadryl] retention Active Medications: Current Medications Acetaminophen (Acetaminophen 325 Mg Tablet) 650 mg PO Q6H PRN PRN Reason: Pain, Mild (Pain Scale 1-3), fever or headache Acetaminophen (Acetaminophen 325 Mg Tablet) 650 mg PO Q6H PRN PRN Reason: Pain (Scale Score 1-3) Acetaminophen (Acetaminophen 325 Mg Tablet) 650 mg PO Q6H PRN PRN Reason: Pain, Mild (Pain Scale 1-3), fever or headache Al Hydroxide/Mg Hydroxide (Magnesium Hydrox/Alum Hydrox 30 Ml Oral.Susp) 10 ml PO TID PRN PRN Reason: Indigestion Albuterol/Ipratropium (Albuterol/Iprat 2.5/0.5mg 3 Ml Ampul.Neb) 3 ml INHALE RQ4H WHILE AWAKE PRN PRN Reason: wheezing Aspirin (Aspirin Enteric Coated 81 Mg Tablet.Dr) 81 mg PO DAILY@0800 [facility] Atorvastatin Calcium (Atorvastatin Calcium 20 Mg Tablet) 20 mg PO DAILY@2000 [facility] Calcium Carbonate (Calcium Carbonate 750 Mg Tab.Chew) 750 mg PO Q4H PRN PRN Reason: Heartburn Calcium Carbonate (Calcium Carbonate 750 Mg Tab.Chew) 750 mg PO Q4H PRN PRN Reason: Heartburn Clozapine (Clozapine 25 Mg Tablet) 75 mg PO DAILY [facility] Clozapine (Clozapine 100 Mg Tablet) 100 mg PO DAILY@2000 [facility] Docusate Sodium (Docusate Sodium 100 Mg Capsule) 100 mg PO BID@0800,2000 [facility] Enoxaparin Sodium (Enoxaparin Sodium 40 Mg/0.4 Ml Syringe) 40 mg SUBCUT Q24H [facility] Furosemide (Furosemide 40 Mg/4 Ml Vial) 40 mg IVPUSH BID@0900,1800 [facility]; Protocol Piperacillin Sod/Tazobactam (Sod 3.375 gm/ Sodium Chloride) 50 mls @ 100 mls/hr IV Q6H [facility] Lurasidone HCl (Lurasidone Hcl 20 Mg Tablet) 60 mg PO BEDTIME@1800 [facility] Magnesium Hydroxide (Milk Of Magnesia 30 Ml Oral.Susp) 30 ml PO DAILY PRN PRN Reason: Constipation Magnesium Hydroxide (Milk Of Magnesia 30 Ml Oral.Susp) 30 ml PO DAILY PRN PRN Reason: Constipation Melatonin (Melatonin 3 Mg Tablet) 6 mg PO BEDTIME PRN PRN Reason: Insomnia Melatonin (Melatonin 3 Mg Tablet) 6 mg PO BEDTIME PRN PRN Reason: Insomnia Methylprednisolone Sodium Succinate (Methylprednisolone Sod Succ 40 Mg/Ml Vial) 40 mg IVPUSH Q12H [facility] Metoprolol Tartrate (Metoprolol Tartrate 25 Mg Tablet) 25 mg PO QID [facility]; Protocol Nicotine Polacrilex (Nicotine Polacrilex Lozenge 4 Mg Lozenge) 4 mg BUCCAL Q2H PRN PRN Reason: Smoking Cessation Omeprazole (Omeprazole 20 Mg Capsule.Dr) 20 mg PO BID@0630,1630 [facility] Ondansetron HCl (Ondansetron Hcl 4 Mg/2 Ml Vial) 4 mg IVPUSH Q8H PRN PRN Reason: Nausea and Vomiting Polyethylene Glycol (Polyethylene Glycol 3350 17 Gm Powd.Pack) 17 gm PO DAILY [facility] Senna/Docusate Sodium (Sennosides/Docusate Sodium Tablet) 2 tab PO DAILY [facility] Sodium Chloride (0.9 % Sodium Chloride Flush 3 Ml Syringe) 3 ml IVFLUSH QSHIFT [facility] Trazodone HCl (Trazodone Hcl 50 Mg Tablet) 50 mg PO BEDTIME [facility] Vitamin D (Cholecalciferol (Vitamin D3) 25 Mcg Tablet) 25 mcg PO DAILY@0800 [facility] Home Medications ?Medication ?Instructions ?Recorded ?Confirmed ?Last Taken ?Type clozapine 100 mg tablet 100 mg PO DAILY@199904/28/24 05/27/24 05/26/24 History acetaminophen 325 mg tablet 650 mg PO Q6H PRN Pain (Scale 05/27/24 05/27/24 Unknown History (Tylenol) Score 1-3) aluminum-mag hydroxide-simethicone 10 ml PO TID PRN Indigestion 05/27/24 05/27/24 Unknown History 200 mg-200 mg-20 mg/5 mL oral susp lurasidone 60 mg tablet 60 mg PO BEDTIME@1800 05/27/24 05/27/24 Unknown History metoprolol tartrate 25 mg tablet 25 mg PO QID 05/27/24 05/27/24 Unknown History nicotine (polacrilex) 4 mg buccal 4 mg buccal Q2H PRN Smoking 05/27/24 05/27/24 Unknown History lozenge Cessation nitroglycerin 0.4 mg sublingual 0.4 mg sublingual Q5M PRN Chest 05/27/24 05/27/24 Unknown History tablet Pain Physical Exam Vital Signs: Vital Signs: Last Vital Signs Temp 98.5 F 05/27/24 11:56 Pulse 105 H 05/27/24 11:56 Resp 26 H 05/27/24 11:56 BP 117/68 05/27/24 11:56 Pulse Ox 93 05/27/24 11:56 O2 Del Method Room Air 05/27/24 11:56 O2 Flow Rate 2 05/27/24 08:12 Oxygen Flow Rate 2 05/27/24 00:21 BMI result Body Mass Index 33.2 Const: General: no acute distress, alert and awake Eyes: Sclerae: sclerae normal EOM: EOMs intact bilaterally Neck: Neck: Yes no lymphadenopathy, Yes trachea midline and Yes supple Resp: Effort & Inspection: normal respiratory effort and no respiratory distress Auscultation: crackles (Bilateral) Cardio: Rate: tachycardic Rhythm: regular rhythm Heart sounds: no gallops, no murmurs and no rubs GI: Palpation (GI): Soft to palpation and Other GI palpation findings present ( Nontender) Auscultation: normal bowel sounds Extrem: General: No clubbing, No cyanosis and Yes edema (1+ bilateral) Results Laboratory Findings 05/27/24 00:47 05/27/24 00:47 Abnormal lab findings: Abnormal Labs 05/27/24 05/27/24 05/27/24 00:47 00:52 05:20 RBC 3.90 L Hgb 10.4 L Hct 33.6 L MCH 26.7 L RDW 16.7 H Immature Gran % (Auto) 0.6 H Neut % (Auto) 78.0 H Lymph % (Auto) 12.0 L Lymph # (Auto) 1.0 L Abs Immat Gran (auto) 0.05 H VBG pH 7.50 H VBG HCO3 Chloride 109 H POC Glucose Random Glucose 213 H Lactic Acid Lactic Acid F/U @ 2Hr Lactic Acid F/U @ 4Hr B-Natriuretic Peptide 616 H Total Protein 6.2 L Urine Protein 30 (1+) H 05/27/24 05/27/24 05/27/24 05:58 08:14 09:56 RBC Hgb Hct MCH RDW Immature Gran % (Auto) Neut % (Auto) Lymph % (Auto) Lymph # (Auto) Abs Immat Gran (auto) VBG pH VBG HCO3 Chloride POC Glucose Random Glucose Lactic Acid 7.7 H* 10.5 H* Lactic Acid F/U @ 2Hr 10.1 H* Lactic Acid F/U @ 4Hr B-Natriuretic Peptide Total Protein Urine Protein 05/27/24 05/27/24 05/27/24 10:47 12:15 13:50 RBC Hgb Hct MCH RDW Immature Gran % (Auto) Neut % (Auto) Lymph % (Auto) Lymph # (Auto) Abs Immat Gran (auto) VBG pH VBG HCO3 Chloride POC Glucose 297 H Random Glucose Lactic Acid Lactic Acid F/U @ 2Hr 9.6 H* Lactic Acid F/U @ 4Hr 11.0 H* B-Natriuretic Peptide Total Protein Urine Protein 05/27/24 14:00 RBC Hgb Hct MCH RDW Immature Gran % (Auto) Neut % (Auto) Lymph % (Auto) Lymph # (Auto) Abs Immat Gran (auto) VBG pH VBG HCO3 17 L Chloride POC Glucose Random Glucose Lactic Acid Lactic Acid F/U @ 2Hr Lactic Acid F/U @ 4Hr B-Natriuretic Peptide Total Protein Urine Protein Assessment and Plan (1) Hypoxic respiratory failure: Status: Acute (2) Pulmonary edema: Qualifiers: Chronicity: acute Qualified Code(s): J81.0 - Acute pulmonary edema Status: Acute Plan Impression: 59-year-old gentleman with underlying HOCM, diastolic dysfunction, emphysema without COPD admitted with acute hypoxic respiratory failure that appears to be secondary to exacerbation of underlying congestive heart failure symptomatic with significant orthopnea and lower extremity edema. At this time does not appear to have significant exacerbation underlying COPD. Recommendations: Consider judicious diuresis on the background of underlying HOCM. Procedures Date of Service Date of Service: 05/27/24
[2024-05-27] MEDS: 0.9 % Sodium Chloride Flush 3 ML SYRINGE IVFLUSH ×2 (15:00→22:30)
[2024-05-27 15:52] LABS: Hemoglobin 10.3 g/dl (14.0-18.0)
[2024-05-27 15:57] LABS: Reflex Lactate? 2 Y
[2024-05-27 16:55] LABS: ~Lactic Acid-LAB USE ONLY 5.1 mmol/L (0.5-2.0)
[2024-05-27 18:12] LABS: Glucose, Whole Blood 234 mg/dL (60-115)
[2024-05-27] MEDS: Lurasidone HCl 20 MG TABLET 60 MG PO (18:14)
[2024-05-27] MEDS: Omeprazole 20 MG CAPSULE.DR PO (18:14)
[2024-05-27 22:09] LABS: Glucose, Whole Blood 186 mg/dL (60-115)
[2024-05-27] MEDS: Atorvastatin Calcium 20 MG TABLET PO (22:18)
[2024-05-27] MEDS: cloZAPine 100 MG TABLET PO (22:19)
[2024-05-27] MEDS: traZODone HCL 50 MG TABLET PO (22:22)
[2024-05-27] MEDS: Docusate Sodium 100 MG CAPSULE PO (22:22)
[2024-05-27] MEDS: methylPREDNISolone Sod Succ 40 MG/ML VIAL IVPUSH (22:25)
[2024-05-28] VITALS (10 sets, daily range): BP systolic 117–162; BP diastolic 63–94; PULSE 75–94; RESP 16–18; TEMP 36.4–36.8; O2SAT 93–97
[2024-05-28] MEDS: Piperacillin Sodium/Tazobactam 3.375 GM in 0.9 % Sodium Chloride 50 ML IV ×4 (03:30→21:33)
[2024-05-28] MEDS: Omeprazole 20 MG CAPSULE.DR PO ×2 (06:01→16:27)
[2024-05-28 06:34] LABS: Basophils Percent Auto 0.1 % (0-2); Hematocrit 32.5 % (42.0-52.0); Hemoglobin 10.1 g/dl (14.0-18.0); Imm Gran Abs Auto 0.14 X10*3/uL (0.00-0.03); Imm Gran Pct Auto 0.9 % (0.0-0.4); Lymphocytes Absolute Auto 0.5 X10*3/uL (1.2-4.9); Lymphocytes Percent Auto 3.1 % (20-40); MANUAL DIFF FLAG SCAN; Mean Corpuscular HGB Conc 31.1 g/dl (31.0-36.0); Mean Corpuscular Hemoglobin 26.8 pg (27.0-33.0); Mean Corpuscular Volume 86.2 fL (80.0-98.0); Mean Platelet Volume 12.4 fL (9.4-12.4); Monocytes Absolute Auto 0.4 X10*3/uL (0.1-1.2); Monocytes Percent Auto 2.3 % (2-11); Neutrophils Absolute Auto 14.1 x10*3/uL (2.0-8.3); Neutrophils Percent Auto 93.6 % (45-73); Platelet Count 149 X10*3/uL (160-400); Red Blood Count 3.77 X10*6/uL (4.60-5.80); SCAN SMEAR FLAG 1
[2024-05-28 06:51] LABS: Alanine Aminotransferase 28 U/L (0-40); Albumin Level 4.1 g/dL (3.5-5.0); Alkaline Phosphatase 67 U/L (39-117); Anion Gap 15 (12-20); Aspartate Amino Transferase 31 U/L (5-37); Bilirubin Total 0.5 mg/dL (0.0-1.0); Blood Urea Nitrogen 36 mg/dL (9-16); Calcium 9.8 mg/dL (8.4-10.2); Carbon Dioxide 24 mmol/L (22-29); Chloride 108 mmol/L (96-108); Creatinine Clr Calc Pharmacy 61.2; Estimated Glomerular Filt Rate 47; Glucose Random 243 mg/dL (60-115); Magnesium 1.9 mg/dL (1.6-2.6); Potassium 4.8 mmol/L (3.3-5.1); Sodium 142 mmol/L (135-145); Total Protein 6.5 g/dL (6.5-8.0)
[2024-05-28 07:52] LABS: Glucose, Whole Blood 234 mg/dL (60-115)
[2024-05-28] MEDS: 0.9 % Sodium Chloride Flush 3 ML SYRINGE IVFLUSH ×3 (09:03→21:34)
[2024-05-28] MEDS: cloZAPine 25 MG TABLET 75 MG PO (09:03)
[2024-05-28] MEDS: Insulin Lispro 100 UNIT/ML 3 ML VIAL SUBCUT ×3 (09:03→16:27)
[2024-05-28] MEDS: Metoprolol Tartrate 25 MG TABLET PO ×2 (09:03→12:03)
[2024-05-28] MEDS: Cholecalciferol (Vitamin D3) 25 MCG TABLET PO (09:04)
[2024-05-28] MEDS: Furosemide 40 MG/4 ML VIAL IVPUSH ×2 (09:04→18:04)
[2024-05-28] MEDS: Aspirin Enteric Coated 81 MG TABLET.DR PO (09:04)
[2024-05-28] MEDS: methylPREDNISolone Sod Succ 40 MG/ML VIAL IVPUSH ×2 (09:05→21:33)
[2024-05-28] MEDS: Docusate Sodium 100 MG CAPSULE PO ×2 (09:07→21:33)
[2024-05-28] MEDS: Sennosides/Docusate Sodium TABLET 2 TAB PO (09:08)
--- NOTE | 2024-05-28 09:37 | MHC.CM.PN ---
IMM 05/28/24, Pt lives in supportive living apt. He has home O2 from [facility], HCP on file and confirmed: [facility]. PCP confirmed: Dr. Caraballo. Pt. said to contact [facility] for transport home. DCP: home, resume supportive services. CM to follow and assist with DC plan.
[2024-05-28 09:43] LABS: Adenovirus PCR Not Detected (Not Detect.); Bordetella parapertussis PCR Not Detected (Not Detect.); Bordetella pertussis PCR Not Detected (Not Detect.); Chlamydia pneumoniae PCR Not Detected (Not Detect.); Coronavirus 229E PCR Not Detected (Not Detect.); Coronavirus HKU1 PCR Not Detected (Not Detect.); Coronavirus NL63 PCR Not Detected (Not Detect.); Coronavirus OC43 PCR Not Detected (Not Detect.); Human metapneumovirus PCR Not Detected (Not Detect.); Influenza A PCR Not Detected (Not Detect.); Influenza B PCR Not Detected (Not Detect.); Mycoplasma pneumoniae PCR Not Detected (Not Detect.); Parainfluenza 1 PCR Not Detected (Not Detect.); Parainfluenza 2 PCR Not Detected (Not Detect.); Parainfluenza 3 PCR Not Detected (Not Detect.); Parainfluenza 4 PCR Not Detected (Not Detect.); RSV PCR Not Detected (Not Detect.); Rhino/Enterovirus PCR Not Detected (Not Detect.); SARS-CoV-2 PCR Not Detected (Not Detect.)
[2024-05-28 10:41] LABS: SLIDE REVIEW VERIFIED
[2024-05-28 11:52] LABS: Glucose, Whole Blood 350 mg/dL (60-115)
[2024-05-28] MEDS: Enoxaparin Sodium 40 MG/0.4 ML SYRINGE SUBCUT (12:03)
--- NOTE | 2024-05-28 12:29 | P.PNIM_ITS ---
Subjective Subjective Date of Service: 05/28/24 Interval History: No acute issues overnight. Still appears shortness of breath Review of Systems Denies chest pain Admits shortness of breath that is unchanged since admit Denies nausea vomiting diarrhea Denies fever chills Physical Exam 2 Vital Signs: Vital Signs: Last Vital Signs Temp 97.8 F 05/28/24 11:40 Pulse 94 05/28/24 12:03 Resp 17 05/28/24 11:40 BP 142/75 H 05/28/24 12:03 Pulse Ox 94 05/28/24 11:40 O2 Del Method Room Air 05/28/24 11:40 O2 Flow Rate 2 05/28/24 04:00 Oxygen Flow Rate 2 05/27/24 00:21 BMI result Body Mass Index 33.2 Const: Other: Awake alert no acute distress Resp: Other: Bilateral basilar crackles Cardio: Other: No S4; positive S1-S2; no S3 murmurs rubs or gallops GI: Other: Soft nontender nondistended normoactive bowel sounds Extrem: Other: No edema bilaterally Objective Data Active Medications Acetaminophen (Acetaminophen 325 Mg Tablet) 650 mg PO Q6H PRN PRN Reason: Pain, Mild (Pain Scale 1-3), fever or headache Acetaminophen (Acetaminophen 325 Mg Tablet) 650 mg PO Q6H PRN PRN Reason: Pain (Scale Score 1-3) Acetaminophen (Acetaminophen 325 Mg Tablet) 650 mg PO Q6H PRN PRN Reason: Pain, Mild (Pain Scale 1-3), fever or headache Al Hydroxide/Mg Hydroxide (Magnesium Hydrox/Alum Hydrox 30 Ml Oral.Susp) 10 ml PO TID PRN PRN Reason: Indigestion Albuterol/Ipratropium (Albuterol/Iprat 2.5/0.5mg 3 Ml Ampul.Neb) 3 ml INHALE RQ4H WHILE AWAKE PRN PRN Reason: wheezing Aspirin (Aspirin Enteric Coated 81 Mg Tablet.) 81 mg PO DAILY@0800 [facility] Last Admin: 05/28/24 09:04 Dose: 81 mg Documented By: MARTIR Atorvastatin Calcium (Atorvastatin Calcium 20 Mg Tablet) 20 mg PO DAILY@2000 [facility] Last Admin: 05/27/24 22:18 Dose: 20 mg Documented By: SINDHU Calcium Carbonate (Calcium Carbonate 750 Mg Tab.Chew) 750 mg PO Q4H PRN PRN Reason: Heartburn Calcium Carbonate (Calcium Carbonate 750 Mg Tab.Chew) 750 mg PO Q4H PRN PRN Reason: Heartburn Clozapine (Clozapine 25 Mg Tablet) 75 mg PO DAILY [facility] Last Admin: 05/28/24 09:03 Dose: 75 mg Documented By: MARTIR Clozapine (Clozapine 100 Mg Tablet) 100 mg PO DAILY@1999 [facility] Last Admin: 05/27/24 22:19 Dose: 100 mg Documented By: SINDHU Docusate Sodium (Docusate Sodium 100 Mg Capsule) 100 mg PO BID@08,1999 [facility] Last Admin: 05/28/24 09:07 Dose: 100 mg Documented By: MARTIR Enoxaparin Sodium (Enoxaparin Sodium 40 Mg/0.4 Ml Syringe) 40 mg SUBCUT Q24H [facility] Last Admin: 05/28/24 12:03 Dose: 40 mg Documented By: MARTIR Furosemide (Furosemide 40 Mg/4 Ml Vial) 40 mg IVPUSH BID@0900,1800 [facility]; Protocol Last Admin: 05/28/24 09:04 Dose: 40 mg Documented By: MARTIR Glucose (Glucose Gel 15 Gm Gel..Gram.) 15 gm PO Q15M PRN; Protocol PRN Reason: per Hypoglycemia Standing Ord. Piperacillin Sod/Tazobactam (Sod 3.375 gm/ Sodium Chloride) 50 mls @ 100 mls/hr IV Q6H [facility] Last Infusion: 05/28/24 09:37 Dose: Infused Documented By: MARTIR Dextrose (D10) 250 mls @ 750 mls/hr IV Q15M PRN; Protocol PRN Reason: per Hypoglycemia Standing Ord. Insulin Human Lispro (Insulin Lispro 100 Unit/Ml 3 Ml Vial) 0 unit SUBCUT QIDACHS [facility]; Protocol Last Admin: 05/28/24 12:03 Dose: 8 unit Documented By: MARTIR Lurasidone HCl (Lurasidone Hcl 20 Mg Tablet) 60 mg PO BEDTIME@1800 [facility] Last Admin: 05/27/24 18:14 Dose: 60 mg Documented By: ANNE MARIE Magnesium Hydroxide (Milk Of Magnesia 30 Ml Oral.Susp) 30 ml PO DAILY PRN PRN Reason: Constipation Magnesium Hydroxide (Milk Of Magnesia 30 Ml Oral.Susp) 30 ml PO DAILY PRN PRN Reason: Constipation Melatonin (Melatonin 3 Mg Tablet) 6 mg PO BEDTIME PRN PRN Reason: Insomnia Melatonin (Melatonin 3 Mg Tablet) 6 mg PO BEDTIME PRN PRN Reason: Insomnia Methylprednisolone Sodium Succinate (Methylprednisolone Sod Succ 40 Mg/Ml Vial) 40 mg IVPUSH Q12H [facility] Last Admin: 05/28/24 09:05 Dose: 40 mg Documented By: MARTIR Metoprolol Tartrate (Metoprolol Tartrate 25 Mg Tablet) 25 mg PO QID [facility]; Protocol Last Admin: 05/28/24 12:03 Dose: 25 mg Documented By: MARTIR Nicotine Polacrilex (Nicotine Polacrilex Lozenge 4 Mg Lozenge) 4 mg BUCCAL Q2H PRN PRN Reason: Smoking Cessation Omeprazole (Omeprazole 20 Mg Capsule.Dr) 20 mg PO BID@0630,1630 [facility] Last Admin: 05/28/24 06:01 Dose: 20 mg Documented By: SINDHU Ondansetron HCl (Ondansetron Hcl 4 Mg/2 Ml Vial) 4 mg IVPUSH Q8H PRN PRN Reason: Nausea and Vomiting Polyethylene Glycol (Polyethylene Glycol 3350 17 Gm Powd.Pack) 17 gm PO DAILY [facility] Last Admin: 05/28/24 09:08 Dose: Not Given Documented By: MARTIR Non-Admin Reason: Patient Refused Senna/Docusate Sodium (Sennosides/Docusate Sodium Tablet) 2 tab PO DAILY [facility] Last Admin: 05/28/24 09:08 Dose: 2 tab Documented By: MARTIR Sodium Chloride (0.9 % Sodium Chloride Flush 3 Ml Syringe) 3 ml IVFLUSH QSHIFT [facility] Last Admin: 05/28/24 09:03 Dose: 3 ml Documented By: MARTIR Trazodone HCl (Trazodone Hcl 50 Mg Tablet) 50 mg PO BEDTIME [facility] Last Admin: 05/27/24 22:22 Dose: 50 mg Documented By: SINDHU Vitamin D (Cholecalciferol (Vitamin D3) 25 Mcg Tablet) 25 mcg PO DAILY@0800 [facility] Last Admin: 05/28/24 09:04 Dose: 25 mcg Documented By: MARTIR Labs 05/28/24 06:06 05/28/24 06:06 Labs: Laboratory Results - last 24 hr 08/20/24 08/20/24 08/20/24 13:50 14:00 15:43 MCV MCH MCHC RDW Plt Count MPV Immature Gran % (Auto) Neut % (Auto) Lymph % (Auto) [place] % (Auto) Eos % (Auto) Baso % (Auto) Lymph # (Auto) [place] # (Auto) Eos # (Auto) Baso # (Auto) Abs Immat Gran (auto) Absolute Neuts (auto) Absolute Nucleated RBC Nucleated RBC % (auto) Smear Tech's Comments VBG pH 7.37 VBG pCO2 28 VBG pO2 137 VBG HCO3 17 L VBG O2 Saturation 100.0 VBG Base Excess -6.7 Anion Gap Estim Creat Clear Calc Estimated GFR POC Glucose Random Glucose Lactic Acid F/U @ 2Hr 9.6 H* Lactic Acid F/U @ 4Hr Calcium Magnesium Total Bilirubin AST ALT Alkaline Phosphatase Total Protein Albumin Respiratory Panel Rivera See Note Adenovirus (Rapid PCR) Not Detected B.pert (TEM-PCR) Not Detected B.parapertussis DNA PCR Not Detected C. pneumoniae DNA (PCR) Not Detected Coronavirus OC43 (PCR) Not Detected Coronavirus HKU1 (PCR) Not Detected Coronavirus 229E (PCR) Not Detected Coronavirus NL63 (PCR) Not Detected Human Metapneumovir PCR Not Detected Influenza A (RT-PCR) Not Detected Influenza B (RT-PCR) Not Detected M. pneumoniae (PCR) Not Detected Parainfluenza 1 (PCR) Not Detected Parainfluenza 2 (PCR) Not Detected Parainfluenza 3 (PCR) Not Detected Parainfluenza 4 (PCR) Not Detected RSV (PCR) Not Detected Entero/Rhino (PCR) Not Detected SARS-CoV-2 RNA (RT-PCR) Not Detected 05/27/24 05/27/24 05/27/24 16:29 18:08 22:04 MCV MCH MCHC RDW Plt Count MPV Immature Gran % (Auto) Neut % (Auto) Lymph % (Auto) [place] % (Auto) Eos % (Auto) Baso % (Auto) Lymph # (Auto) [place] # (Auto) Eos # (Auto) Baso # (Auto) Abs Immat Gran (auto) Absolute Neuts (auto) Absolute Nucleated RBC Nucleated RBC % (auto) Smear Tech's Comments VBG pH VBG pCO2 VBG pO2 VBG HCO3 VBG O2 Saturation VBG Base Excess Anion Gap Estim Creat Clear Calc Estimated GFR POC Glucose 234 H 186 H Random Glucose Lactic Acid F/U @ 2Hr Lactic Acid F/U @ 4Hr 5.1 H* Calcium Magnesium Total Bilirubin AST ALT Alkaline Phosphatase Total Protein Albumin Respiratory Panel [place] Adenovirus (Rapid PCR) B.pert (TEM-PCR) B.parapertussis DNA PCR C. pneumoniae DNA (PCR) Coronavirus OC43 (PCR) Coronavirus HKU1 (PCR) Coronavirus 229E (PCR) Coronavirus NL63 (PCR) Human Metapneumovir PCR Influenza A (RT-PCR) Influenza B (RT-PCR) M. pneumoniae (PCR) Parainfluenza 1 (PCR) Parainfluenza 2 (PCR) Parainfluenza 3 (PCR) Parainfluenza 4 (PCR) RSV (PCR) Entero/Rhino (PCR) SARS-CoV-2 RNA (RT-PCR) 05/28/24 05/28/24 05/28/24 06:06 07:39 11:45 MCV 86.2 MCH 26.8 L MCHC 31.1 RDW 17.0 H Plt Count 149 L MPV 12.4 Immature Gran % (Auto) 0.9 H Neut % (Auto) 93.6 H Lymph % (Auto) 3.1 L [place] % (Auto) 2.3 Eos % (Auto) 0.0 Baso % (Auto) 0.1 Lymph # (Auto) 0.5 L [place] # (Auto) 0.4 Eos # (Auto) 0.0 Baso # (Auto) 0.0 Abs Immat Gran (auto) 0.14 H Absolute Neuts (auto) 14.1 H Absolute Nucleated RBC 0.000 Nucleated RBC % (auto) 0.0 Smear Tech's Comments VERIFIED VBG pH VBG pCO2 VBG pO2 VBG HCO3 VBG O2 Saturation VBG Base Excess Anion Gap 15 Estim Creat Clear Calc 61.2 Estimated GFR 47 POC Glucose 234 H 350 H* Random Glucose 243 H Lactic Acid F/U @ 2Hr Lactic Acid F/U @ 4Hr Calcium 9.8 Magnesium 1.9 Total Bilirubin 0.5 AST 31 ALT 28 Alkaline Phosphatase 67 Total Protein 6.5 Albumin 4.1 Respiratory Panel Rivera Adenovirus (Rapid PCR) B.pert (TEM-PCR) B.parapertussis DNA PCR C. pneumoniae DNA (PCR) Coronavirus OC43 (PCR) Coronavirus HKU1 (PCR) Coronavirus 229E (PCR) Coronavirus NL63 (PCR) Human Metapneumovir PCR Influenza A (RT-PCR) Influenza B (RT-PCR) M. pneumoniae (PCR) Parainfluenza 1 (PCR) Parainfluenza 2 (PCR) Parainfluenza 3 (PCR) Parainfluenza 4 (PCR) RSV (PCR) Entero/Rhino (PCR) SARS-CoV-2 RNA (RT-PCR) Microbiology Microbiology Results: Microbiology 05/27/24 06:10 Blood Culture - Preliminary Blood - Venous No growth after 24 hours. 05/27/24 05:58 Blood Culture - Preliminary Blood - Venous No growth after 24 hours. Assessment and Plan (1) Chronic HFrEF (heart failure with reduced ejection fraction): Status: Acute (2) COPD with acute exacerbation: Status: Acute Plan 59 year old man admitted with acute on chronic HFrEF. 1.HFREF with hx of HOCM -continue lasix 40 mg IV BID -follow renals/divalents -strict I&O -cardiology consultation appreciated 2.COPD, possible mild exacerbation -continue solumedrol for 24h; if continues without wheezing with DC in a.m. -continue empiric Zosyn times 24 hours as well -consider DC in a.m. if no significant changes 3.Hx of HOCM -LV 0 H without change compared to last admission -continue current therapies 4.Bipolar disorder -stable and well compensated Lovenox Full code Requires ongoing hospitalization for IV Lasix to treat likely heart failure and specialty consultation Quality Stroke Does the patient have a stroke diagnosis?: No VTE Prior VTE?: No VTE Risk Level:: Medical - moderate - high VTE Device Contraindication: Treatment Not Indicated VTE Drug Contraindication: N/A - Med Ordered
--- NOTE | 2024-05-28 13:29 | P.PNCA_ITS ---
Subjective Subjective Date of Service: 05/28/24 Interval history: Seen examined at bedside. Less agitated today. Still has crackles bilaterally. On Lasix IV. Physical Exam Vital Signs: Last Vital Signs Temp 97.8 F 05/28/24 11:40 Pulse 94 05/28/24 12:03 Resp 17 05/28/24 11:40 BP 142/75 H 05/28/24 12:03 Pulse Ox 94 05/28/24 11:40 O2 Del Method Room Air 05/28/24 11:40 O2 Flow Rate 2 05/28/24 04:00 Oxygen Flow Rate 2 05/27/24 00:21 BMI result Body Mass Index 33.2 GENERAL APPEARANCE: In no acute distress. Eating lunch. SKIN: no suspicious lesions, warm and dry. HEART: Systolic murmur all over the precordium, regular rate and rhythm. LUNGS: Bilateral crackles at bases. ABDOMEN: soft, nontender. EXTREMITIES: no edema. PERIPHERAL PULSES: equal. NEUROLOGIC: Less agitated today. Objective Labs and Meds 05/28/24 06:06 05/28/24 06:06 Lab results: Laboratory Results - last 24 hr 05/27/24 05/27/24 05/27/24 13:50 14:00 15:43 WBC RBC Hgb 10.3 L Hct 32.0 L MCV MCH MCHC RDW Plt Count MPV Immature Gran % (Auto) Neut % (Auto) Lymph % (Auto) [place] % (Auto) Eos % (Auto) Baso % (Auto) Lymph # (Auto) [place] # (Auto) Eos # (Auto) Baso # (Auto) Abs Immat Gran (auto) Absolute Neuts (auto) Absolute Nucleated RBC Nucleated RBC % (auto) Smear Tech's Comments VBG pH 7.37 VBG pCO2 28 VBG pO2 137 VBG HCO3 17 L VBG O2 Saturation 100.0 VBG Base Excess -6.7 Sodium Potassium Chloride Carbon Dioxide Anion Gap BUN Creatinine Estim Creat Clear Calc Estimated GFR POC Glucose Random Glucose Lactic Acid F/U @ 2Hr 9.6 H* Lactic Acid F/U @ 4Hr Calcium Magnesium Total Bilirubin AST ALT Alkaline Phosphatase Total Protein Albumin Respiratory Panel Rivera See Note Adenovirus (Rapid PCR) Not Detected B.pert (TEM-PCR) Not Detected B.parapertussis DNA PCR Not Detected C. pneumoniae DNA (PCR) Not Detected Coronavirus OC43 (PCR) Not Detected Coronavirus HKU1 (PCR) Not Detected Coronavirus 229E (PCR) Not Detected Coronavirus NL63 (PCR) Not Detected Human Metapneumovir PCR Not Detected Influenza A (RT-PCR) Not Detected Influenza B (RT-PCR) Not Detected M. pneumoniae (PCR) Not Detected Parainfluenza 1 (PCR) Not Detected Parainfluenza 2 (PCR) Not Detected Parainfluenza 3 (PCR) Not Detected Parainfluenza 4 (PCR) Not Detected RSV (PCR) Not Detected Entero/Rhino (PCR) Not Detected SARS-CoV-2 RNA (RT-PCR) Not Detected 05/27/24 05/27/24 05/27/24 16:29 18:08 22:04 WBC RBC Hgb Hct MCV MCH MCHC RDW Plt Count MPV Immature Gran % (Auto) Neut % (Auto) Lymph % (Auto) [place] % (Auto) Eos % (Auto) Baso % (Auto) Lymph # (Auto) [place] # (Auto) Eos # (Auto) Baso # (Auto) Abs Immat Gran (auto) Absolute Neuts (auto) Absolute Nucleated RBC Nucleated RBC % (auto) Smear Tech's Comments VBG pH VBG pCO2 VBG pO2 VBG HCO3 VBG O2 Saturation VBG Base Excess Sodium Potassium Chloride Carbon Dioxide Anion Gap BUN Creatinine Estim Creat Clear Calc Estimated GFR POC Glucose 234 H 186 H Random Glucose Lactic Acid F/U @ 2Hr Lactic Acid F/U @ 4Hr 5.1 H* Calcium Magnesium Total Bilirubin AST ALT Alkaline Phosphatase Total Protein Albumin Respiratory Panel Rivera Adenovirus (Rapid PCR) B.pert (TEM-PCR) B.parapertussis DNA PCR C. pneumoniae DNA (PCR) Coronavirus OC43 (PCR) Coronavirus HKU1 (PCR) Coronavirus 229E (PCR) Coronavirus NL63 (PCR) Human Metapneumovir PCR Influenza A (RT-PCR) Influenza B (RT-PCR) M. pneumoniae (PCR) Parainfluenza 1 (PCR) Parainfluenza 2 (PCR) Parainfluenza 3 (PCR) Parainfluenza 4 (PCR) RSV (PCR) Entero/Rhino (PCR) SARS-CoV-2 RNA (RT-PCR) 05/28/24 05/28/24 05/28/24 06:06 07:39 11:45 WBC 15.0 H RBC 3.77 L Hgb 10.1 L Hct 32.5 L MCV 86.2 MCH 26.8 L MCHC 31.1 RDW 17.0 H Plt Count 149 L MPV 12.4 Immature Gran % (Auto) 0.9 H Neut % (Auto) 93.6 H Lymph % (Auto) 3.[address] [place] % (Auto) 2.3 Eos % (Auto) 0.0 Baso % (Auto) 0.1 Lymph # (Auto) 0.[address] [place] # (Auto) 0.4 Eos # (Auto) 0.0 Baso # (Auto) 0.0 Abs Immat Gran (auto) 0.14 H Absolute Neuts (auto) 14.1 H Absolute Nucleated RBC 0.000 Nucleated RBC % (auto) 0.0 Smear Tech's Comments VERIFIED VBG pH VBG pCO2 VBG pO2 VBG HCO3 VBG O2 Saturation VBG Base Excess Sodium 142 Potassium 4.8 D Chloride 108 Carbon Dioxide 24 Anion Gap 15 BUN 36 H Creatinine 1.51 H Estim Creat Clear Calc 61.2 Estimated GFR 47 POC Glucose 234 H 350 H* Random Glucose 243 H Lactic Acid F/U @ 2Hr Lactic Acid F/U @ 4Hr Calcium 9.8 Magnesium 1.9 Total Bilirubin 0.5 AST 31 ALT 28 Alkaline Phosphatase 67 Total Protein 6.5 Albumin 4.1 Respiratory Panel Rivera Adenovirus (Rapid PCR) B.pert (TEM-PCR) B.parapertussis DNA PCR C. pneumoniae DNA (PCR) Coronavirus OC43 (PCR) Coronavirus HKU1 (PCR) Coronavirus 229E (PCR) Coronavirus NL63 (PCR) Human Metapneumovir PCR Influenza A (RT-PCR) Influenza B (RT-PCR) M. pneumoniae (PCR) Parainfluenza 1 (PCR) Parainfluenza 2 (PCR) Parainfluenza 3 (PCR) Parainfluenza 4 (PCR) RSV (PCR) Entero/Rhino (PCR) SARS-CoV-2 RNA (RT-PCR) Imaging Radiologist's impression: Impressions Chest X-Ray 05/27/24 00:53 IMPRESSION: *Technically suboptimal radiograph of the chest secondary to markedly underpenetrated radiographic technique. *Low lung lungs. *Findings suspicious for interstitial disease within the right lung which may represent visualization of edema or atypical/viral infection. Consider further evaluation with repeat chest radiographs as clinically indicated. *Findings suspicious for mild left lower lobe atelectasis and/or consolidation. Chest CTA 05/27/24 06:36 IMPRESSION: *CT pulmonary angiogram negative for pulmonary emboli. *Bilateral diffuse pulmonary groundglass opacities with subpleural sparing. Findings are most pronounced in the right lung. Findings are suspicious for asymmetric alveolar pulmonary edema. Diffuse pulmonary infection or pulmonary hemorrhage could have a similar appearance. *Small right and trace left dependent layering low density pleural effusions. VTE: negative Progress Note: A&P Assessment and plan (1) Congestive heart failure: Status: Acute Plan [age] year gentleman presenting with shortness of breath and congestive heart failure on background of hypertrophic obstructive cardiomyopathy. Still appears to be volume overloaded and has crackles on examination. Continue IV diuretics. Change metoprolol tartrate to 100 mg Toprol-XL. Avoid nitroglycerin and other vasodilators. Was started on empiric antibiotics because he has presented multiple times with sepsis and it was hard to understand whether he is septic or in heart failure yesterday because he was quite confused and agitated. Decision about further antibiotics as per Medicine team. Thank you for allowing me to participate in the care of your patient. Please feel free to contact me if you have any questions. Time Spent With Patient Time: Total time managing care of this patient today ____ minutes. Progress Note: Quality Stroke Does the patient have a stroke diagnosis?: No Procedures Date of Service Date of Service: 05/28/24
[2024-05-28 16:10] LABS: Glucose, Whole Blood 207 mg/dL (60-115)
[2024-05-28] MEDS: Metoprolol Succinate ER 100 MG TAB.ER.24H PO (16:27)
[2024-05-28] MEDS: Lurasidone HCl 20 MG TABLET 60 MG PO (18:04)
[2024-05-28 21:10] LABS: Glucose, Whole Blood 131 mg/dL (60-115)
[2024-05-28] MEDS: traZODone HCL 50 MG TABLET PO (21:33)
[2024-05-28] MEDS: Atorvastatin Calcium 20 MG TABLET PO (21:33)
[2024-05-28] MEDS: cloZAPine 100 MG TABLET PO (21:33)
[2024-05-29] VITALS (7 sets, daily range): BP systolic 133–149; BP diastolic 65–87; PULSE 74–80; RESP 18–20; TEMP 36.1–36.6; O2SAT 91–97; BMI 34.6
[2024-05-29] MEDS: Piperacillin Sodium/Tazobactam 3.375 GM in 0.9 % Sodium Chloride 50 ML IV ×3 (02:45→14:19)
[2024-05-29] MEDS: Omeprazole 20 MG CAPSULE.DR PO ×2 (05:53→17:07)
[2024-05-29 07:44] LABS: Glucose, Whole Blood 178 mg/dL (60-115)
[2024-05-29] MEDS: Docusate Sodium 100 MG CAPSULE PO ×2 (08:17→20:38)
[2024-05-29] MEDS: cloZAPine 25 MG TABLET 75 MG PO (08:17)
[2024-05-29] MEDS: Metoprolol Succinate ER 100 MG TAB.ER.24H PO (08:17)
[2024-05-29] MEDS: Cholecalciferol (Vitamin D3) 25 MCG TABLET PO (08:17)
[2024-05-29] MEDS: Aspirin Enteric Coated 81 MG TABLET.DR PO (08:17)
[2024-05-29] MEDS: Insulin Lispro 100 UNIT/ML 3 ML VIAL SUBCUT ×4 (08:18→20:39)
[2024-05-29] MEDS: methylPREDNISolone Sod Succ 40 MG/ML VIAL IVPUSH (08:18)
[2024-05-29] MEDS: Sennosides/Docusate Sodium TABLET 2 TAB PO (08:18)
[2024-05-29] MEDS: polyethylene glycoL 3350 17 GM POWD.PACK PO (08:18)
[2024-05-29] MEDS: 0.9 % Sodium Chloride Flush 3 ML SYRINGE IVFLUSH ×3 (08:18→20:39)
[2024-05-29] MEDS: Furosemide 40 MG/4 ML VIAL IVPUSH (08:18)
[2024-05-29 12:01] LABS: Glucose, Whole Blood 228 mg/dL (60-115)
[2024-05-29] MEDS: Enoxaparin Sodium 40 MG/0.4 ML SYRINGE SUBCUT (12:09)
--- NOTE | 2024-05-29 12:49 | MHC.CM.PN ---
Pt is not yet ready for DC. per rounds, pt. likely will DC tomorrow. Pt is very anxious and stating that he wants to leave. CM called contact Senait Rodriguez, and was told that this is a staff person that pt. has put as his HCP and contact. She does not agree to be HCP. Rebecca is [employer] (pt. lives in supportive living apt.). Phone # is correct, but contact is to be changed to say [employer] . Task submitted. CM will approach pt. later to change HCP, he is very anxious at this time. Rebecca gave CM name and number for pt.'s brother, Nigel Mejia, but phone # is not in service.
--- NOTE | 2024-05-29 15:40 | P.PNIM_ITS ---
Subjective Subjective Date of Service: 05/29/24 Interval History: Seen and examined this morning Follow-up for COPD/CHF exacerbation Still appears to be short of breath Wants to go Review of Systems Review of Systems: Yes all other systems are reviewed and are negative Constitutional Constitutional: Denies chills and Denies fever(s) Cardiovascular Cardiovascular: Denies chest pain and Denies palpitations Endocrine Endocrine: Denies palpitations Physical Exam 2 Vital Signs: Vital Signs: Last Vital Signs Temp 97.0 F 05/29/24 15:31 Pulse 78 05/29/24 15:31 Resp 20 05/29/24 15:31 BP 149/77 H 05/29/24 15:31 Pulse Ox 96 05/29/24 15:31 O2 Del Method Room Air 05/29/24 15:31 O2 Flow Rate 2 05/29/24 07:21 Oxygen Flow Rate 2 05/27/24 00:21 BMI result Body Mass Index 34.6 Const: General: cooperative, no acute distress, alert and awake Nutritional Appearance: overweight Orientation/consciousness: patient oriented x3 Resp: Other: Increased respiratory effort; basilar rales Effort & Inspection: no use of accessory muscles Cardio: Rate: regular rate GI: Inspection: No distended Palpation (GI): Soft to palpation Neuro: Other: Grossly nonfocal General: patient oriented x3 Extrem: General: Yes no pedal edema Objective Data Active Medications Acetaminophen (Acetaminophen 325 Mg Tablet) 650 mg PO Q6H PRN PRN Reason: Pain, Mild (Pain Scale 1-3), fever or headache Acetaminophen (Acetaminophen 325 Mg Tablet) 650 mg PO Q6H PRN PRN Reason: Pain (Scale Score 1-3) Acetaminophen (Acetaminophen 325 Mg Tablet) 650 mg PO Q6H PRN PRN Reason: Pain, Mild (Pain Scale 1-3), fever or headache Al Hydroxide/Mg Hydroxide (Magnesium Hydrox/Alum Hydrox 30 Ml Oral.Susp) 10 ml PO TID PRN PRN Reason: Indigestion Albuterol/Ipratropium (Albuterol/Iprat 2.5/0.5mg 3 Ml Ampul.Neb) 3 ml INHALE RQ4H WHILE AWAKE PRN PRN Reason: wheezing Aspirin (Aspirin Enteric Coated 81 Mg Tablet.) 81 mg PO DAILY@0800 [facility] Last Admin: 05/29/24 08:17 Dose: 81 mg Documented By: JOSE Atorvastatin Calcium (Atorvastatin Calcium 20 Mg Tablet) 20 mg PO DAILY@1999 [facility] Last Admin: 05/28/24 21:33 Dose: 20 mg Documented By: NEISHA Calcium Carbonate (Calcium Carbonate 750 Mg Tab.Chew) 750 mg PO Q4H PRN PRN Reason: Heartburn Calcium Carbonate (Calcium Carbonate 750 Mg Tab.Chew) 750 mg PO Q4H PRN PRN Reason: Heartburn Clozapine (Clozapine 25 Mg Tablet) 75 mg PO DAILY [facility] Last Admin: 05/29/24 08:17 Dose: 75 mg Documented By: JOSE Clozapine (Clozapine 100 Mg Tablet) 100 mg PO DAILY@1999 [facility] Last Admin: 05/28/24 21:33 Dose: 100 mg Documented By: NEISHA Docusate Sodium (Docusate Sodium 100 Mg Capsule) 100 mg PO BID@799,1999 [facility] Last Admin: 05/29/24 08:17 Dose: 100 mg Documented By: JOSE Enoxaparin Sodium (Enoxaparin Sodium 40 Mg/0.4 Ml Syringe) 40 mg SUBCUT Q24H [facility] Last Admin: 05/29/24 12:09 Dose: 40 mg Documented By: JOSE Furosemide (Furosemide 40 Mg/4 Ml Vial) 40 mg IVPUSH BID@0900,1800 [facility]; Protocol Last Admin: 05/29/24 08:18 Dose: 40 mg Documented By: JOSE Glucose (Glucose Gel 15 Gm Gel..Gram.) 15 gm PO Q15M PRN; Protocol PRN Reason: per Hypoglycemia Standing Ord. Piperacillin Sod/Tazobactam (Sod 3.375 gm/ Sodium Chloride) 50 mls @ 100 mls/hr IV Q6H [facility] Last Infusion: 05/29/24 14:50 Dose: Infused Documented By: JOSE Dextrose (D10) 250 mls @ 750 mls/hr IV Q15M PRN; Protocol PRN Reason: per Hypoglycemia Standing Ord. Insulin Human Lispro (Insulin Lispro 100 Unit/Ml 3 Ml Vial) 0 unit SUBCUT QIDACHS [facility]; Protocol Last Admin: 05/29/24 12:08 Dose: 4 unit Documented By: JOSE Lurasidone HCl (Lurasidone Hcl 20 Mg Tablet) 60 mg PO BEDTIME@1800 [facility] Last Admin: 05/28/24 18:04 Dose: 60 mg Documented By: DENISE Magnesium Hydroxide (Milk Of Magnesia 30 Ml Oral.Susp) 30 ml PO DAILY PRN PRN Reason: Constipation Magnesium Hydroxide (Milk Of Magnesia 30 Ml Oral.Susp) 30 ml PO DAILY PRN PRN Reason: Constipation Melatonin (Melatonin 3 Mg Tablet) 6 mg PO BEDTIME PRN PRN Reason: Insomnia Melatonin (Melatonin 3 Mg Tablet) 6 mg PO BEDTIME PRN PRN Reason: Insomnia Methylprednisolone Sodium Succinate (Methylprednisolone Sod Succ 40 Mg/Ml Vial) 40 mg IVPUSH Q12H [facility] Last Admin: 05/29/24 08:18 Dose: 40 mg Documented By: JOSE Metoprolol Succinate (Metoprolol Succinate Er 100 Mg Tab.Er.24h) 100 mg PO DAILY [facility]; Protocol Last Admin: 05/29/24 08:17 Dose: 100 mg Documented By: JOSE Nicotine Polacrilex (Nicotine Polacrilex Lozenge 4 Mg Lozenge) 4 mg BUCCAL Q2H PRN PRN Reason: Smoking Cessation Omeprazole (Omeprazole 20 Mg Capsule.Dr) 20 mg PO BID@0630,1630 [facility] Last Admin: 05/29/24 05:53 Dose: 20 mg Documented By: KEIRY Ondansetron HCl (Ondansetron Hcl 4 Mg/2 Ml Vial) 4 mg IVPUSH Q8H PRN PRN Reason: Nausea and Vomiting Polyethylene Glycol (Polyethylene Glycol 3350 17 Gm Powd.Pack) 17 gm PO DAILY [facility] Last Admin: 05/29/24 08:18 Dose: 17 gm Documented By: JOSE Senna/Docusate Sodium (Sennosides/Docusate Sodium Tablet) 2 tab PO DAILY [facility] Last Admin: 05/29/24 08:18 Dose: 2 tab Documented By: JOSE Sodium Chloride (0.9 % Sodium Chloride Flush 3 Ml Syringe) 3 ml IVFLUSH QSHIFT [facility] Last Admin: 05/29/24 08:18 Dose: 3 ml Documented By: JOSE Trazodone HCl (Trazodone Hcl 50 Mg Tablet) 50 mg PO BEDTIME [facility] Last Admin: 05/28/24 21:33 Dose: 50 mg Documented By: NEISHA Vitamin D (Cholecalciferol (Vitamin D3) 25 Mcg Tablet) 25 mcg PO DAILY@0800 [facility] Last Admin: 05/29/24 08:17 Dose: 25 mcg Documented By: JOSE Labs 05/28/24 06:06 05/28/24 06:06 Labs: Laboratory Results - last 24 hr 05/28/24 05/28/24 05/29/24 16:02 21:07 07:40 POC Glucose 207 H 131 H 178 H 05/29/24 11:30 POC Glucose 228 H Microbiology Microbiology Results: Microbiology 05/27/24 06:10 Blood Culture - Preliminary Blood - Venous No growth after 48 hours. 05/27/24 05:58 Blood Culture - Preliminary Blood - Venous No growth after 48 hours. Assessment and Plan (1) Chronic HFrEF (heart failure with reduced ejection fraction): Status: Acute Plan 59 year old man admitted with acute on chronic HFrEF. HFREF with hx of HOCM Initially treated with IV Lasix, renal function trending up, hold Lasix Cardiology following JUHI Creatinine 1.51 05/28, repeat BMP today hold lasix for now COPD, possible mild exacerbation wean steroids Leukocytosis due to steroids not acute infection seen by pulm - does not feel COPD contributing We will stop antibiotics Acute Lactic acidosis received more than 30mg albuterol in the ED ? Type B lactic acidosis from albuterol VBG wnl Hyperglycemia ?steroid induced check hba1c follow POCs, cover with sliding scale Hx of HOCM repeat ECHO with No obvious LVOT but technically difficult study -continue current therapies Bipolar disorder -stable and well compensated Tobacco use disorder Smoking cessation advised NRT Obesity class I. BMI 33.2 Weight management GERD ppi Lovenox Full code Requires ongoing hospitalization for IV Lasix to treat likely heart failure and specialty consultation, monitoring of renal function Quality Stroke Does the patient have a stroke diagnosis?: No VTE Prior VTE?: No VTE Risk Level:: Medical - moderate - high VTE Device Contraindication: Treatment Not Indicated VTE Drug Contraindication: N/A - Med Ordered
[2024-05-29 16:26] LABS: Glucose, Whole Blood 206 mg/dL (60-115)
[2024-05-29 16:44] LABS: Anion Gap 16 (12-20); Blood Urea Nitrogen 46 mg/dL (9-16); Calcium 9.8 mg/dL (8.4-10.2); Carbon Dioxide 27 mmol/L (22-29); Chloride 105 mmol/L (96-108); Creatinine Clr Calc Pharmacy 59.7; Estimated Glomerular Filt Rate 45; Glucose Random 210 mg/dL (60-115); Sodium 144 mmol/L (135-145)
[2024-05-29 16:51] LABS: Estimated Average Glucose 151 mg/dL; Hemoglobin A1c % 6.9 % (<6.0)
[2024-05-29] MEDS: Lurasidone HCl 20 MG TABLET 60 MG PO (17:07)
[2024-05-29 20:27] LABS: Glucose, Whole Blood 172 mg/dL (60-115)
[2024-05-29] MEDS: Atorvastatin Calcium 20 MG TABLET PO (20:38)
[2024-05-29] MEDS: cloZAPine 100 MG TABLET PO (20:38)
[2024-05-29] MEDS: traZODone HCL 50 MG TABLET PO (20:38)
[2024-05-30 03:21] VITALS: BP 124/58; PULSE 80; RESP 20; TEMP 36.6
[2024-05-30 05:59] VITALS: BMI 34.7
[2024-05-30] MEDS: Omeprazole 20 MG CAPSULE.DR PO (06:29)
[2024-05-30 07:49] VITALS: BP 177/98; PULSE 83; RESP 20; TEMP 36; O2SAT 96
[2024-05-30 07:56] LABS: Glucose, Whole Blood 181 mg/dL (60-115)
[2024-05-30] MEDS: Docusate Sodium 100 MG CAPSULE PO (08:53)
[2024-05-30] MEDS: Cholecalciferol (Vitamin D3) 25 MCG TABLET PO (08:53)
[2024-05-30] MEDS: cloZAPine 25 MG TABLET 75 MG PO (08:53)
[2024-05-30] MEDS: Metoprolol Succinate ER 100 MG TAB.ER.24H PO (08:53)
[2024-05-30] MEDS: Aspirin Enteric Coated 81 MG TABLET.DR PO (08:53)
[2024-05-30] MEDS: methylPREDNISolone Sod Succ 40 MG/ML VIAL IVPUSH (08:54)
[2024-05-30] MEDS: polyethylene glycoL 3350 17 GM POWD.PACK PO (08:54)
[2024-05-30] MEDS: Insulin Lispro 100 UNIT/ML 3 ML VIAL SUBCUT ×2 (08:54→12:39)
[2024-05-30] MEDS: Lactated Ringers 500 ML 80 ML IVCONT (09:08)
[2024-05-30 10:47] VITALS: BP 147/84; PULSE 84; RESP 14; TEMP 36.3; O2SAT 94
--- NOTE | 2024-05-30 11:04 | PM.DS ---
DS: Providers Provider Date of Service: 05/30/24 Date of admission: 05/27/24 14:12 Date of discharge: 05/30/24 Primary care physician: Regan Hogue MD Consults: 05/27/24 11:49 Consult to Cardiology Routine Consulting Provider: [facility] Reason for consultation: hx of HCMP 05/27/24 12:42 Consult to Pulmonology Routine Consulting Provider: [facility] Reason for consultation: ? ILD Attending physician on discharge: [facility] Discharging clinician: Kezia Solo DS: Diagnosis Discharge Diagnosis (1) Chronic HFrEF (heart failure with reduced ejection fraction): Status: Acute DS: Summary Hospital Course Hospital Course: From H&P on the day of admission 59-year-old man with a history of schizoaffective disorder presenting to the ER with worsening shortness of breath over the last several days. He reports he has been unable to lay flat and he continues to smoke cigarettes. He denied any fever, chills, nausea, vomiting, diarrhea, recent illness, sick contacts, sputum production he was found to be hypoxic by EMS with oxygen saturation of 85% on room air. He was also noted to have elevated lactic acid with peaked at 11 with no complaints of abdominal pain. Chest CTA was negative for pulmonary embolus but showed bilateral diffuse pulmonary ground-glass opacities with question of pulmonary edema and pleural effusions. He has been tachycardic and tachypneic but received a large amount of albuterol in the ER which may be contributing to this. No leukocytosis noted stable H&H. VBG 7.37/28/137/17. Other than albuterol he also received Solu-Medrol, IV Lasix totaling 80 mg IV, morphine, Rocephin, Tylenol, ibuprofen, albumin. He will be admitted for further management and treatment of acute congestive heart failure. HFREF with hx of HOCM Received 80 mg IV lasix in ED and then continued on lasix 40 mg IV BID. seen by cardiology during admission. Patient was overall negative during admission. Breathing improved, weaned off of supplemental oxygen, was able to ambulate in the hallway with no shortness of breath. Patient is eager to return home. Creatinine did trend up and he received gentle 250 mg of fluid and creatinine trended down to 1.3. Patient is eager to return home and adamantly declines to spend another night in the hospital. Recommend outpatient follow-up with Cardiology. Was not previously on Lasix but will be discharged with a 20 mg p.o. b.i.d. recommend monitor sodium and fluid intake and outpatient follow-up with Cardiology. Repeat labs in 1 week. COPD, possible mild exacerbation Initially treated empirically with IV Solu-Medrol, breathing treatments and empiric antibiotics. Seen by Pulmonary did not feel that this represented COPD exacerbation. Antibiotics and steroids were discontinued. acute Lactic acidosis received more than 30mg albuterol in the ED. likely Type B lactic acidosis from albuterol Hx of HOCM repeat ECHO with No obvious LVOT but technically difficult study Bipolar disorder Pt made SI statements and a sitter was placed for safety. When he was medically cleared, he was evaluated by the care team. he was not actively suicidal and was not deemed to need inpatient level of care. Time Attestation Discharge Coordination Time (in mins): 36 Quality: Safe Use of Opioids Does Pt have an Active Cancer Diagnosis on the Problem List?: No Quality: Stroke Does the patient have a stroke diagnosis?: No Physical Exam Vital Signs: Vital Signs: Last Vital Signs Temp 97.4 F 05/30/24 10:47 Pulse 84 05/30/24 10:47 Resp 14 05/30/24 10:47 BP 147/84 H 05/30/24 10:47 Pulse Ox 94 05/30/24 10:47 O2 Del Method Room Air 05/30/24 10:47 O2 Flow Rate 2 05/29/24 07:21 Oxygen Flow Rate 2 05/27/24 00:21 BMI result Body Mass Index 34.7 Const: General: cooperative, no acute distress, alert and awake Nutritional Appearance: overweight Orientation/consciousness: patient oriented x3 Resp: Effort & Inspection: normal respiratory effort, able to speak in complete sentences, no respiratory distress and no use of accessory muscles Auscultation: clear to auscultation bilaterally Cardio: Rate: regular rate GI: Inspection: No distended Palpation (GI): Soft to palpation Neuro: Other: Grossly nonfocal General: patient oriented x3 Extrem: General: Yes no pedal edema DS: Data Data Completed and Pending Completed studies during hospitalization [Text1]: Procedures Assistance with Respiratory Ventilation, Less than 24 Consecutive Hours, Continuous Positive Airway Pressure (11/03/23) Drainage of Spinal Canal, Percutaneous Approach, Diagnostic (01/15/24) Fluoroscopy of Spinal Cord (01/15/24) Introduction of Remdesivir Anti-infective into Peripheral Vein, Percutaneous Approach, [employer] (09/25/21) Labs on day of discharge: Laboratory Results - last 24 hr 05/28/24 05/29/24 05/29/24 06:06 11:30 16:11 Sodium 144 Potassium 4.0 Chloride 105 Carbon Dioxide 27 Anion Gap 16 BUN 46 H Creatinine 1.58 H Estim Creat Clear Calc 59.7 Estimated GFR 45 POC Glucose 228 H Random Glucose 210 H Estimat Average Glucose 151 Hemoglobin A1c % 6.9 H Calcium 9.8 05/29/24 05/29/24 05/30/24 16:20 20:24 07:51 Sodium Potassium Chloride Carbon Dioxide Anion Gap BUN Creatinine Estim Creat Clear Calc Estimated GFR POC Glucose 206 H 172 H 181 H Random Glucose Estimat Average Glucose Hemoglobin A1c % Calcium Preliminary micro results at discharge 05/27/24 06:10 Blood Culture - Preliminary Blood - Venous No growth after 48 hours. 05/27/24 05:58 Blood Culture - Preliminary Blood - Venous No growth after 48 hours. Discharge Plan Discharge Anticipated Discharge Date/Time: 05/30/24 12:26 Patient Disposition: Home, Self-Care Discharge Diagnosis: acute exacerbation of CHF Referrals: Regan Hogue MD [Primary Care Provider] - 1 Week Javier Bah MD [Physician] - 1 Week Discharge Medications: New metoprolol succinate 100 mg Tablet Extended Release 24 Hr 100 mg PO DAILY 90 Days Qty: 90 0RF Protocol: Hold for SBP/HR < HOLD for SBP < : 90 HOLD for HR < : 60 furosemide [Lasix] 20 mg tablet 20 mg PO BID 90 Days Qty: 180 0RF Continued albuterol sulfate 90 mcg/actuation HFA aerosol inhaler 2 puff inhalation Q6H PRN (Reason: Shortness Of Breath Or Wheezing) 30 Days Qty: 1 0RF aspirin 81 mg tablet,delayed release (DR/EC) 81 mg PO DAILY@0800 30 Days Qty: 30 0RF cholecalciferol (vitamin D3) 25 mcg (1,000 unit) tablet 25 mcg PO DAILY@0800 30 Days Qty: 30 0RF clozapine 25 mg Tablet 75 mg PO DAILY 30 Days Qty: 90 0RF trazodone 50 mg Tablet 50 mg PO BEDTIME 30 Days Qty: 30 0RF atorvastatin 20 mg tablet 20 mg PO DAILY@1999 30 Days Qty: 30 0RF polyethylene glycol 3350 17 gram Powder In Packet 17 g PO DAILY 30 Days Qty: 30 0RF sennosides-docusate sodium [Senna Plus] 8.6-50 mg Tablet 2 tab PO DAILY 30 Days Qty: 60 0RF docusate sodium 100 mg capsule 1 cap PO BID@08,1999 30 Days Qty: 60 0RF omeprazole 20 mg Capsule,Delayed Release(Dr/Ec) 20 mg PO BID@0630,1630 30 Days Qty: 60 0RF lurasidone 60 mg tablet 60 mg PO BEDTIME@1800 acetaminophen [Tylenol] 325 mg Tablet 650 mg PO Q6H PRN (Reason: Pain (Scale Score 1-3)) nitroglycerin 0.4 mg Tablet, Sublingual 0.4 mg SUBLINGUAL Q5M PRN (Reason: Chest Pain) Rx Instructions: do not exceed 3 doses per episode alum-mag hydroxide-simeth 200-200-20 mg/5 mL Suspension 10 ml PO TID PRN (Reason: Indigestion) Rx Instructions: administer between meals and at bedtime nicotine (polacrilex) 4 mg Lozenge 4 mg buccal Q2H PRN (Reason: Smoking Cessation) clozapine 100 mg tablet 100 mg PO DAILY@1999 Discontinued metoprolol tartrate 25 mg tablet 25 mg PO QID Protocol: Hold for SBP/HR < HOLD for SBP < : 90 HOLD for HR < : 60 Discharge Orders: Discharge Order (Routine); Ordered 05/30/24 Ordered By: Kezia Solo Activity on Discharge: As tolerated Stand Alone Forms: Patient Portal Discharge page Print Language: Cook Islander Other Ambulatory Orders: Basic Metabolic Panel (Routine) Timeframe: 1 Week Facility: [facility] - Location: Laboratory Ordered By: Kezia Solo Care Plan Goals: see below Health Concerns: Acute on chronic CHF exacerbation JUHI Plan of Treatment: start taking lasix twice daily as prescribed change metoprolol to 100 mg once daily rather then 25 mg four times daily monitor weight daily and call PCP if you gain more then 2 pounds in one day reduce salt intake would recommend repeating BMP next week Assessment: see discharge summary
[2024-05-30 11:26] LABS: Glucose, Whole Blood 272 mg/dL (60-115)
[2024-05-30 11:42] LABS: Anion Gap 12 (12-20); Blood Urea Nitrogen 46 mg/dL (9-16); Calcium 9.4 mg/dL (8.4-10.2); Carbon Dioxide 28 mmol/L (22-29); Chloride 107 mmol/L (96-108); Creatinine Clr Calc Pharmacy 68.4; Estimated Glomerular Filt Rate 53; Glucose Random 292 mg/dL (60-115); Potassium 4.2 mmol/L (3.3-5.1); Sodium 143 mmol/L (135-145)
--- NOTE | 2024-05-30 12:40 | MHC.CM.PN ---
Pt has been medically cleared for DC, He will go home to his supportive living apt. via [facility] shuttle today. staff there aware and unable to come pick him up.
== END 2024-05-30 14:49 | disposition home or self-care (01) | DRG 291 ==
LOC: HO.ED 05:33 → HO.EDOVER 14:19 → HO.IMC 19:19
PROVIDERS: Hospitalist; Admitting Provider Nurse Practitioner Acute Care; Emergency Provider Emergency Medicine; PCP Internal Medicine; Visit Provider Physician Assistant Medical
DX: I11.0 Hypertensive heart disease with heart failure (principal); I50.23 Acute on chronic systolic (congestive) heart failure; J96.01 Acute respiratory failure with hypoxia; E87.21 Acute metabolic acidosis; I42.1 Obstructive hypertrophic cardiomyopathy; J43.9 Emphysema, unspecified; F17.210 Nicotine dependence, cigarettes, uncomplicated; G47.33 Obstructive sleep apnea (adult) (pediatric); Z71.6 Tobacco abuse counseling; I25.10 Atherosclerotic heart disease of native coronary artery without angina pectoris; E78.5 Hyperlipidemia, unspecified; F31.9 Bipolar disorder, unspecified; K21.9 Gastro-esophageal reflux disease without esophagitis; E66.8 Other obesity; Z68.34 Body mass index [BMI] 34.0-34.9, adult; Z20.822 Contact with and (suspected) exposure to COVID-19; Z79.82 Long term (current) use of aspirin; Z79.899 Other long term (current) 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
CPT/HCPCS: 0241U; 36415; 71045; 71275; 80048; 80053; 80076; 81001; 82803; 82947; 83036; 83605; 83735; 83880; 84484; 85014; 85018; 85025; 87040; 87633; 93005; 93306; 94640; 99285; J0696; J1650; J1940; J2270; J2543; J2919; J7120; P9047; Q9957; Q9967; S9485

== ENCOUNTER → 2024-05-27 01:08 | Outpatient (BNV) | payer OTHER, SELFPAY | PROVIDERS: Emergency Provider Emergency Medicine; PCP Internal Medicine; Visit Provider Internal Medicine Cardiovascular Disease | DX: I42.1 Obstructive hypertrophic cardiomyopathy (principal); J96.01 Acute respiratory failure with hypoxia; I34.0 Nonrheumatic mitral (valve) insufficiency | CPT/HCPCS: 93306; 99223; 99233 ==

== ENCOUNTER → 2024-05-27 14:12 | Outpatient (BNV) | payer OTHER, SELFPAY | PROVIDERS: Admitting Provider Nurse Practitioner Acute Care; Emergency Provider Emergency Medicine; PCP Internal Medicine; Visit Provider Nurse Practitioner Acute Care | DX: J96.91 Respiratory failure, unspecified with hypoxia (principal); I50.9 Heart failure, unspecified; I50.22 Chronic systolic (congestive) heart failure; J44.1 Chronic obstructive pulmonary disease with (acute) exacerbation | CPT/HCPCS: 99223; 99232; 99239 ==

== ENCOUNTER → 2024-05-27 14:12 | Outpatient (BNV) | payer OTHER, SELFPAY | PROVIDERS: Admitting Provider Nurse Practitioner Acute Care; Emergency Provider Emergency Medicine; PCP Internal Medicine; Visit Provider Internal Medicine Pulmonary Disease | DX: J96.91 Respiratory failure, unspecified with hypoxia (principal); J81.0 Acute pulmonary edema | CPT/HCPCS: 99222 ==

== ENCOUNTER 2024-06-04 14:17 | Outpatient (AMB) | payer OTHER, SELFPAY ==
[2024-06-04 14:21] VITALS: BP 140/74; PULSE 85; O2SAT 97; BMI 33.7
--- NOTE | 2024-06-04 14:21 | A.OFFPC_ITS ---
Vital Signs 06/04/24 14:21 Height 5 ft 9 in Weight 228 lb BMI 33.7 BP 140/74 H Blood Pressure Location Lt brachial Position Sitting Pulse 85 Pulse Source Pulse Oximeter Pulse Oximetry (%) 97 Oxygen Delivery Method Room Air Intake [place]asons[place] [facility] [place] chest pain and issues breathing Intake Note: Patient is here for hospital discharge follow up. 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 [employer] Department Required: No Allergies lithium [[place]] Allergy (Severe, Verified 06/04/24 14:21) Toxicity thiothixene Allergy (Severe, Verified 06/04/24 14:21) Swelling amoxicillin Allergy (Mild, Verified 06/04/24 14:21) Nose Bleed benztropine Allergy (Unknown, Verified 06/04/24 14:21) benztropine mesylate- unknown gabapentin [From NEURONTIN] Allergy (Unknown, Verified 06/04/24 14:21) Unknown fluphenazine [From Prolixin] Allergy (Verified 06/04/24 14:21) Unknown barium sulfate [BARIUM SULFATE] Adverse Reaction (Intermediate, Verified 06/04/24 14:21) Nausea and Vomiting haloperidol Adverse Reaction (Intermediate, Verified 06/04/24 14:21) Muscle tension in legs diphenhydramine [From Benadryl] Adverse Reaction (Unknown, Verified 06/04/24 14:21) urinary retention Medication List - Last Reconciled 06/04/24 by Luz Elena Machado PA-C acetaminophen (Tylenol) 650 mg PO Q6H PRN albuterol sulfate 90 mcg/actuation 2 puffs inhalation Q6H PRN 30 days alum-mag hydroxide-simeth 200-200-20 mg/5 mL 10 mL PO TID PRN aspirin 81 mg PO DAILY@0800 30 days atorvastatin 20 mg PO DAILY@1999 30 days cholecalciferol (vitamin D3) 25 mcg PO DAILY@0800 30 days clozapine 75 mg (3 x 25 mg) PO DAILY 30 days clozapine 100 mg PO DAILY@1999 docusate sodium 1 cap PO BID@0800,1999 30 days furosemide (Lasix) 40 mg PO DAILY 90 days lurasidone 60 mg PO BEDTIME@1800 metoprolol succinate ER 100 mg See Protocol PO DAILY 90 days nicotine (polacrilex) 4 mg buccal Q2H PRN nitroglycerin 0.4 mg sublingual Q5M PRN omeprazole 20 mg PO BID@0630,1630 30 days polyethylene glycol 3350 17 grams PO DAILY 30 days sennosides-docusate sodium 8.6-50 mg (Senna Plus) 2 tabs PO DAILY 30 days trazodone 50 mg PO BEDTIME 30 days Tobacco use date assessed: 03/25/24 Dental Screening Dental Screen Date: 11/12/23 HPI [facility] [place] chest pain and issues breathing HPI Details 59-year-old male with past medical histo ry of hypertension, hypercholesterolemia, obstructive cardiomyopathy, schizoaffective disorder, GERD, COPD, and heart failure with reduced ejection fraction last seen by Dr. Hogue March 2024 coming here for hospital follow up.? In review of the notes, patient presented to [facility] [place] 05/27/2024 for worsening shortness of breath.?CTA negative for pulmonary embolism and showed evidence of pulmonary edema with bilateral pleural effusions.?Received Solu-Medrol, IV Lasix, IV morphine, Rocephin, Tylenol, and albumin and admitted for congestive heart failure.? Patient was discharged 05/30/2024 with recommend follow up with Cardiology and repeat BMP in 1 week.?Lasix was changed to twice daily and metoprolol to once daily. Patient states he has been doing well with the medication adjustment since his discharge. He also mentions his breathing has greatly improved and he no longer has difficulty breathing when lying flat. He does sleep with multiple pillows for head elevation to prevent shortness of breath. He is scheduled to follow up with Cardiology in the next few weeks. Denies any chest pain. [facility] Medical History Osteoarthritis GERD without esophagitis Vitamin D deficiency Schizoaffective disorder Diabetes mellitus HOCM (hypertrophic obstructive cardiomyopathy) Congestive heart failure COVID-19 Thought disorder Nocturnal hypoxemia Constipation COPD (chronic obstructive pulmonary disease) JUDY (obstructive sleep apnea) Smoker BPH (benign prostatic hyperplasia) Diabetes mellitus Obesity (BMI 30-39.9) Pure hypercholesterolemia Prolonged QT interval Essential hypertension Aggression Hypertension Coronary artery disease CHF (congestive heart failure) Cardiac arrhythmia Myocardial infarction Surgical History History of ankle surgery History of intestinal surgery History of transurethral resection of prostate Family History Father Medical history unknown Mother Medical history unknown Sister Alive and well Social History Household Members: Friend(s) Household Members Other:: Roommate Housing: Apartment Housing Other:: [facility] Do you presently have visiting nurse or other home services: No Alcohol intake: never Comment: Sitter in room Patient Tobacco Use Status: Current everyday Tobacco user Tobacco use type: Cigarette Cigarette Packs Per Day: 0.5 Cigarettes Per Day: 10 Years Smoked: Many e-Cigarette/Vaping Use: Currently Using Second Hand Smoke Exposure: Yes Substance Use Type: Unknown Advance Directives Date on File: 01/14/24 service: No Current occupational status: disabled Sexual orientation: Straight/Heterosexual Cognitive needs: Yes Hearing needs: No Vision needs: Yes Questionnaire Thrive Questionnaire Date Thrive assessed: 05/28/24 AUDIT C Alcohol Use Questionnaire (AUDIT-C) 1. How often do you have a drink containing alcohol?: Monthly or less 2. How many drinks containing alcohol do you have on a typical day when you are drinking?: 1 or 2 3. How often do you have six or more drinks on one occasion?: Never Total Score: 1 Score Reviewed/Action Taken: Yes LINN-7 AMB Questionnaire LINN-7 Date LINN - 7 assessed: 11/12/23 Source: Developed by Drs. Ga Richard, Rosio Grigsby, Jose Johnson and colleagues, with an educational lulu from [employer]. Review of Systems Const Denies body aches, Denies chills, Denies fever(s), Denies headache(s) and Denies poor appetite Eyes Reports no additional complaints ENT Denies dizziness and Denies headache(s) Card Denies chest pain, Denies edema, Denies lightheadedness and Denies dyspnea Resp Denies cough and Denies dyspnea GI Denies abdominal pain and Reports constipation Reports no additional complaints Musc Reports no additional complaints and Denies abnormal gait Skin/Breast Reports system reviewed and no additional complaints, except as documented Neuro Denies abnormal gait, Denies dizziness and Denies headache(s) Psych Reports no additional complaints Physical exam (Primary Care) Vital Signs: Last Vital Signs Pulse 85 06/04/24 14:21 BP 140/74 H 06/04/24 14:21 Pulse Ox 97 06/04/24 14:21 Oxygen Delivery Method Room Air 06/04/24 14:21 BMI result Body Mass Index 33.7 Tobacco/Smoking Status: Tobacco use Status Tobacco use date assessed 03/25/24 06/04/24 14:22 Patient Tobacco Use Status Current everyday Tobacco 06/04/24 14:22 Tobacco use type Cigarette 06/04/24 14:22 e-Cigarette/Vaping Use Currently Using 06/04/24 14:22 Thrive Assessment: Date of Thrive Assessment Date Thrive assessed 05/28/24 06/04/24 14:22 Const General: cooperative, healthy appearing, comfortable and no acute distress Orientation/consciousness: patient oriented x3 HENMT Head: Yes normocephalic Ears: hearing grossly normal bilaterally General nose exam: Normal external nose present Eyes General: appearance normal, both eyes and all related structures Conjunctivae: conjunctivae normal Neck Neck: Yes full ROM and Yes no lymphadenopathy Resp Effort & Inspection: normal respiratory effort Auscultation: clear to auscultation bilaterally, no crackles, no rales, no rhonchi and no wheezes Cardio Rate: regular rate Rhythm: regular rhythm Skin General skin exam: no rashes or lesions noted Neuro General: patient oriented x3 Gait exam (Neuro): Normal gait present Extrem General: Yes normal to inspection, Yes full ROM and No edema Psych Affect: normal affect Attitude: cooperative Insight: Good insight present (Psych) Judgement: Good judgement present (Psych) Assessment and Plan Assessment & Plan (1) Chronic HFrEF (heart failure with reduced ejection fraction): Code(s): I50.22 - Chronic systolic (congestive) heart failure Plan: Patient follows with Cardiology and has an appointment in the coming weeks. Was recently admitted for congestive heart failure characterized by increased shortness of breath. Medications were adjusted while in the hospital Lasix increased and metoprolol dosing change to once a day. Patient states his symptoms have greatly improved and is no longer having shortness of breath. Continue to monitor for symptoms of fluid overload and follow up as needed. Continue to follow with Cardiology and pulmonology. Patient was also found to have acute kidney injury in the setting of congestive heart failure. Per recommendation from hospitalist will order for repeat CMP to monitor kidney function. We will follow up in 2 months or sooner if patient begins having symptoms again. Plan This note was constructed using voice recognition software. While every effort has been made to ensure accuracy and equipment operator, still areas may have been included sometimes these areas may affect the content or meeting of the given symptoms. Total time spent caring for the patient today was 30 minutes. This includes time spent before the visit reviewing the chart, time spent during the visit, and time spent after the visit and documentation. Medications: Changed From docusate sodium 1 cap PO BID@799,1999 30 days 60 caps 0RF To docusate sodium 100 mg PO BID@799,1999 30 days 60 caps 0RF Refilled atorvastatin 20 mg PO DAILY@1999 30 days 30 tabs 0RF furosemide (Lasix) 40 mg PO DAILY 90 days 90 tabs 0RF metoprolol succinate ER 100 mg See Protocol PO DAILY 90 days 90 tabs 0RF sennosides-docusate sodium 8.6-50 mg (Senna Plus) 2 tabs PO DAILY 30 days 60 tabs 0RF omeprazole 20 mg PO BID@0630,1630 30 days 60 caps 0RF Coding Level of Care Code Est Pt Level 3 (77999) Diagnoses Chronic HFrEF (heart failure with reduced ejection fraction) I50.22
== END 2024-06-04 15:01 | disposition home or self-care (01) ==
PROVIDERS: PCP Internal Medicine
DX: I50.22 Chronic systolic (congestive) heart failure (principal)
CPT/HCPCS: 99213

== ENCOUNTER 2024-06-04 14:57 | Outpatient (REF) | payer OTHER, SELFPAY ==
[2024-06-04 15:20] LABS: MANUAL DIFF FLAG NO
[2024-06-04 15:34] LABS: Basophils Percent Auto 0.3 % (0-2); Eosinophils Absolute Auto 0.2 X10*3/uL (0.0-0.4); Eosinophils Percent Auto 1.4 % (0-4); Hematocrit 44.2 % (42.0-52.0); Hemoglobin 14.2 g/dl (14.0-18.0); Imm Gran Abs Auto 0.07 X10*3/uL (0.00-0.03); Imm Gran Pct Auto 0.7 % (0.0-0.4); Lymphocytes Absolute Auto 1.4 X10*3/uL (1.2-4.9); Lymphocytes Percent Auto 13.1 % (20-40); Mean Corpuscular HGB Conc 32.1 g/dl (31.0-36.0); Mean Corpuscular Hemoglobin 26.9 pg (27.0-33.0); Mean Corpuscular Volume 83.7 fL (80.0-98.0); Mean Platelet Volume 11.7 fL (9.4-12.4); Monocytes Percent Auto 9.1 % (2-11); Neutrophils Absolute Auto 7.8 x10*3/uL (2.0-8.3); Neutrophils Percent Auto 75.4 % (45-73); Platelet Count 210 X10*3/uL (160-400); Red Blood Count 5.28 X10*6/uL (4.60-5.80); Red Cell Distribution Width 17.1 % (11.0-16.0); White Blood Count 10.4 X10*3/uL (4.8-10.8)
[2024-06-04 15:57] LABS: Estimated Average Glucose 146 mg/dL; Hemoglobin A1c % 6.7 % (<6.0)
[2024-06-04 16:09] LABS: Alanine Aminotransferase 23 U/L (0-40); Albumin Level 4.5 g/dL (3.5-5.0); Alkaline Phosphatase 74 U/L (39-117); Anion Gap 15 (12-20); Aspartate Amino Transferase 17 U/L (5-37); Bilirubin Total 0.3 mg/dL (0.0-1.0); Blood Urea Nitrogen 29 mg/dL (9-16); Calcium 10.2 mg/dL (8.4-10.2); Carbon Dioxide 28 mmol/L (22-29); Chloride 105 mmol/L (96-108); Cholesterol 270 mg/dL (<200); Estimated Glomerular Filt Rate 46; Glucose Fasting 155 mg/dL (60-99); HDL Cholesterol 42 mg/dL (>40); Sodium 144 mmol/L (135-145); Total Protein 7.6 g/dL (6.5-8.0); Triglycerides 485 mg/dL (<150)
[2024-06-04 16:19] LABS: Prostate Specific Antigen < 0.10 ng/mL (<0.05-4.0); TSH reflex Free T4 1.11 uIU/mL (0.32-4.0); Vitamin D 25-OH Total 40.1 ng/mL (>30)
[2024-06-14 15:48] LABS: Testosterone, Total 169 ng/dL (250-1100)
== END 2024-06-04 14:58 | disposition home or self-care (01) ==
LOC: HO.LAB 14:57
PROVIDERS: Internal Medicine; Urology; Visit Provider Physician Assistant Medical
DX: D64.9 Anemia, unspecified (principal); E78.00 Pure hypercholesterolemia, unspecified; E11.9 Type 2 diabetes mellitus without complications; Z12.5 Encounter for screening for malignant neoplasm of prostate; E55.9 Vitamin D deficiency, unspecified; R30.0 Dysuria
CPT/HCPCS: 36415; 80053; 80061; 82306; 83036; 84153; 84403; 84443; 85025

== ENCOUNTER 2024-06-20 09:42 | Outpatient (AMB) | payer OTHER, SELFPAY ==
[2024-06-20 09:44] VITALS: BP 130/70; PULSE 81; BMI 34.4
--- NOTE | 2024-06-20 09:44 | A.OFFVIS_ITS ---
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: No Accompanied by: Cereal Maker Allergies lithium [[place]] Allergy (Severe, Verified 06/04/24 14:21) Toxicity thiothixene Allergy (Severe, Verified 06/04/24 14:21) Swelling amoxicillin Allergy (Mild, Verified 06/04/24 14:21) Nose Bleed benztropine Allergy (Unknown, Verified 06/04/24 14:21) benztropine mesylate- unknown gabapentin [From NEURONTIN] Allergy (Unknown, Verified 06/04/24 14:21) Unknown fluphenazine [From Prolixin] Allergy (Verified 06/04/24 14:21) Unknown barium sulfate [BARIUM SULFATE] Adverse Reaction (Intermediate, Verified 4 14:21) Nausea and Vomiting haloperidol Adverse Reaction (Intermediate, Verified 06/04/24 14:21) Muscle tension in legs diphenhydramine [From Benadryl] Adverse Reaction (Unknown, Verified 06/04/24 14:21) urinary retention Medication List - Last Reconciled 06/20/24 by Klaudia Casillas TROUBLE LINEMAN-C acetaminophen (Tylenol) 650 mg PO Q6H PRN albuterol sulfate 90 mcg/actuation 2 puffs inhalation Q6H PRN 30 days alum-mag hydroxide-simeth 200-200-20 mg/5 mL 10 mL PO TID PRN aspirin 81 mg PO DAILY@0800 30 days atorvastatin 20 mg PO DAILY@1999 30 days cholecalciferol (vitamin D3) 25 mcg PO DAILY@0800 30 days clozapine 75 mg (3 x 25 mg) PO DAILY 30 days clozapine 100 mg PO DAILY@1999 docusate sodium 100 mg PO BID@0800,1999 30 days furosemide (Lasix) 40 mg PO DAILY 90 days lurasidone 60 mg PO BEDTIME@1800 metoprolol succinate ER 100 mg See Protocol PO DAILY 90 days nicotine (polacrilex) 4 mg buccal Q2H PRN nitroglycerin 0.4 mg sublingual Q5M PRN omeprazole 20 mg PO BID@0630,1630 30 days polyethylene glycol 3350 17 grams PO DAILY 30 days sennosides-docusate sodium 8.6-50 mg (Senna Plus) 2 tabs PO DAILY 30 days trazodone 50 mg PO BEDTIME 30 days HPI HPI [facility] [place]: Details: Navid is a 59-year-old male with past medical history of hypertension, hyperlipidemia, diabetes, smoking, schizoaffective disorder, hypertrophic obstructive cardiomyopathy who recently admitted to [facility] with increased shortness of breath. He was treated for infection and Congestive heart failure. He was diuresed and discharged with Lasix 20 mg b.i.d.. Today he presents with a skilled nursing case manager. He has a somewhat flat affect but is answering questions appropriately. He tells me that he has some dizziness if he has to walk for long distances. He has had no presyncope, syncope, falls. He says his breathing is comfortable. No PND, orthopnea or edema. No chest discomfort at rest or with activity. No shortness of breath, PND, orthopnea or edema. No lightheadedness, presyncope, syncope, falls. He lives in a long-term and takes his medications when they are given to him. He is mostly sedentary and does minimal activities in the home. [facility] Medical History Osteoarthritis GERD without esophagitis Vitamin D deficiency Schizoaffective disorder Diabetes mellitus HOCM (hypertrophic obstructive cardiomyopathy) Congestive heart failure COVID-19 Thought disorder Nocturnal hypoxemia Constipation COPD (chronic obstructive pulmonary disease) JUDY (obstructive sleep apnea) Smoker BPH (benign prostatic hyperplasia) Diabetes mellitus Obesity (BMI 30-39.9) Pure hypercholesterolemia Prolonged QT interval Essential hypertension Aggression Hypertension Coronary artery disease CHF (congestive heart failure) Cardiac arrhythmia Myocardial infarction Surgical History History of ankle surgery History of intestinal surgery History of transurethral resection of prostate Family History Father Medical history unknown Mother Medical history unknown Sister Alive and well Social History Household Members: Friend(s) Household Members Other:: Roommate Housing: Apartment Housing Other:: [facility] Do you presently have visiting nurse or other home services: No Alcohol intake: never Comment: Sitter in room Patient Tobacco Use Status: Current everyday Tobacco user Tobacco use type: Cigarette Cigarette Packs Per Day: 0.5 Cigarettes Per Day: 10 Years Smoked: Many e-Cigarette/Vaping Use: Currently Using Second Hand Smoke Exposure: Yes Substance Use Type: Unknown Advance Directives Date on File: 01/14/24 service: No Current occupational status: disabled Sexual orientation: Straight/Heterosexual Cognitive needs: Yes Hearing needs: No Vision needs: Yes Review of Systems Const All systems reviewed & are unremarkable except as noted in HPI and below Denies chills, Denies fatigue, Denies fever(s), Denies frequent falls, Denies weakness, Denies weight gain and Denies weight loss ENT Denies dizziness Card Denies chest pain, Denies leg edema, Reports lightheadedness, Denies palpitations, Denies dyspnea and Reports dyspnea on exertion Resp Denies cough, Denies dyspnea and Reports dyspnea on exertion GI Denies hematochezia Musc Denies abnormal gait, Denies muscle weakness, Denies numbness, Denies radiating pain into limb and Denies tingling Neuro Denies abnormal gait, Denies dizziness, Denies frequent falls, Denies numbness, Denies tingling and Denies weakness Endo Denies fatigue and Denies palpitations Physical Exam Vital Signs: Last Vital Signs Pulse 81 06/20/24 09:44 BP 130/70 06/20/24 09:44 BMI result Body Mass Index 34.4 Const General: cooperative, healthy appearing, comfortable and no acute distress Orientation/consciousness: patient oriented x3 Neck Neck: Yes normal visual inspection and Yes no JVD Resp Effort & Inspection: normal respiratory effort Auscultation: clear to auscultation bilaterally, no rales, no rhonchi and no wheezes Cardio Jugular venous distension: no JVD Rate: regular rate Rhythm: regular rhythm Heart sounds: S1 normal heart sound present, S2 normal heart sound present, Murmur heart sound present and no rubs Neuro General: patient oriented x3 Extrem General: Yes normal to inspection and No no pedal edema Psych Other: flat affect Appearance: grossly normal Mental Status: mental status grossly normal Speech and movement: Normal speech and movement present Assessment & Plan Assessment & Plan (1) HOCM (hypertrophic obstructive cardiomyopathy): Code(s): I42.1 - Obstructive hypertrophic cardiomyopathy Category: Medical Plan: History of hypertrophic cardiomyopathy. A cardiac MRI done in 2018 showed hypertrophic cardiomyopathy with at least moderate LV outflow track obstruction, systolic anterior motion of the mitral valve, degree of hypertrophy greatest at the apical segment, no abnormal enhancement, subjectively preserved EF. Echocardiogram done on 10/10/2023 showing EF greater than 70%, severe increase in LV wall thickness, dynamic LVOT gradient noted, resting LVOT peak gradient 40 mmHg, post Valsalva 123 mmHg, worse than prior study in 2020, normal RV cavity size and function, left atrium severely dilated, mild dilation of the sinus of Valsalva 4 cm and mild dilation of ascending aorta 3.9 cm. He was recently admitted to [facility] with sob and treated for CHF and possible infection. A echocardiogram done during last hospitalization showed EF 65-70%, peak LV gradiant 38mmgh, no obvous LVOT gradient noted however technically difficult test. He does report some shortness of breath at times and that he does get some l ightheadedness if he has to walk distances. He admits to being mostly sedentary. He does not appear fluid overloaded on examination. His blood pressure is well controlled. Continue current med management including Lasix and metoprolol. Cardiac MRI ordered following last visit and not completed as of yet. Will let our photovoltaic panel installer know. Diagnosis of HOCM was reviewed with him. Cardiology follow up 3 mo, sooner if needed - plan to go over MRI results and plan of care. lithography contact worker states that if he does need to go to [place] for further care, arrangements can be made. Pt signs his own permits. (2) Chronic HFrEF (heart failure with reduced ejection fraction): Code(s): I50.22 - Chronic systolic (congestive) heart failure Category: Medical Plan: Admission last month for increased sob. He was tachycardic, hypoxic, had elevated lactic acid. CT scan of chest showed findings consistent with asymmetric pulmonary edema versus infectious etiology. His BNP was elevated at 616. He was treated for possible infection. He was diuresed with IV Lasix. His home hydrochlorothiazide was stopped and changed over to Lasix 20 mg b.i.d. at discharge. His echocardiogram was overall unchanged. Today he has no clinical signs of fluid overload. Tells me his breathing is comfortable. Continue current management. (3) Elevated troponin: Code(s): R79.89 - Other specified abnormal findings of blood chemistry Category: Medical Plan: [facility] [place] last January altered mental status, tachycardia, tachypnea, JUHI, mildly elevated troponin. His EKG was nondiagnostic for ischemia as he does have repolarization abnormalities from LVH. He was evaluated for sepsis. He was seen by infectious disease and was likely to have aspiration pneumonia. Creatinine had been as high as 1.67. Troponin can be mildly elevated in the setting of JUHI. He did have a cardiac catheterization in 2016 which showed no rmal coronary arteries. At this time he has no known coronary artery disease. He did undergo pharmacological nuclear stress test as outpatient on 04/11/2024 showing a reversible distal inferior defect possibly from diaphragm attenuation artifact, less likely true ischemia, EF 42% with stress and 47% with rest. An echocardiogram had been done on 01/16/2024 showing EF greater than 70%, severe LVH without significant regional wall motion abnormality. At this time he has no reports of anginal sounding symptoms. He is mostly sedentary. Signs and symptoms of angina reviewed with him. Continue with risk factor modification. He is on daily aspirin however it is not needed for cardiac findings as he has no known CAD. He is on atorvastatin with ideal LDL goal less than 100. Labs done 01/10/2024 showed LDL 73. He is on metoprolol with good blood pressure control. (4) Prolonged QT interval: Code(s): R94.31 - Abnormal electrocardiogram [ECG] [EKG] Category: Medical Plan: Has had variable QTC levels in the past, likely related to use of antipsychotic medications. Recent EKGs showing QTC ranging 496ms - 523ms. This range is similar to what was noted on his last office visit in 2021. Last EKG done 05/27/2024 showing sinus tachycardia with PACs, incomplete left bundle branch block, QTC 502 milliseconds. Hospital discharge summary resume reviewed and no mention of cardiac arrhythmias at that time. Labs done 05/28/24 showed magnesi um 1.9, labs 06/04/2024 showed potassium 4, calcium 10.2 He denies any heart palpitations, presyncope, syncope. Avoid medications that prolong his QT interval. Periodic EKGs should be performed. (5) Hypertension: Code(s): I10 - Essential (primary) hypertension Category: Medical Qualifiers: Hypertension type: essential hypertension Qualified Code(s): I10 - Essential (primary) hypertension Plan: Well controlled at this time. No medication changes made. (6) Abnormal EKG: Code(s): R94.31 - Abnormal electrocardiogram [ECG] [EKG] Category: Medical Plan: EKG does have ST and T-wave abnormalities, chronic, related to LVH, HOCM. Nondiagnostic for ischemia (7) Hospital discharge follow-up: Code(s): Z09 - Encounter for follow-up examination after completed treatment for conditions other than malignant neoplasm Category: Medical Plan: As above Plan Time spent on chart review, documentation, interview and assessment Coding Level of Care Code Est Pt Level 4 (72598) Diagnoses HOCM (hypertrophic obstructive cardiomyopathy) I42.1 Chronic HFrEF (heart failure with reduced ejection fraction) I50.22 Elevated troponin R79.89 Prolonged QT interval R94.31 Essential hypertension I10 Hypertension type: essential hypertension Abnormal EKG R94.31 Hospital discharge follow-up Z09 Time Spent (min) 28
== END 2024-06-20 10:18 | disposition home or self-care (01) ==
PROVIDERS: PCP Internal Medicine; Visit Provider Nurse Practitioner Family
DX: I42.1 Obstructive hypertrophic cardiomyopathy (principal); I50.22 Chronic systolic (congestive) heart failure; R79.89 Other specified abnormal findings of blood chemistry; R94.31 Abnormal electrocardiogram [ECG] [EKG]; I10 Essential (primary) hypertension; Z09 Encounter for follow-up examination after completed treatment for conditions other than malignant neoplasm
CPT/HCPCS: 99214

== ENCOUNTER → 2024-06-20 09:42 | Outpatient (BNVA) | payer OTHER, SELFPAY | PROVIDERS: PCP Internal Medicine; Visit Provider Nurse Practitioner Family | DX: I11.0 Hypertensive heart disease with heart failure (principal); I42.1 Obstructive hypertrophic cardiomyopathy; I50.22 Chronic systolic (congestive) heart failure; E78.5 Hyperlipidemia, unspecified; R79.89 Other specified abnormal findings of blood chemistry; R94.31 Abnormal electrocardiogram [ECG] [EKG]; Z09 Encounter for follow-up examination after completed treatment for conditions other than malignant neoplasm | CPT/HCPCS: 99212 ==

== ENCOUNTER 2024-07-02 10:29 | Outpatient (AMB) | payer OTHER, SELFPAY ==
--- NOTE | 2024-07-02 10:30 | MHC.OFFVIS ---
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 Care Team Allergies lithium [Chireno] Allergy (Severe, Verified 07/13/24 23:00) Toxicity thiothixene Allergy (Severe, Verified 07/13/24 23:00) Swelling amoxicillin Allergy (Mild, Verified 07/13/24 23:00) Nose Bleed benztropine Allergy (Unknown, Verified 07/13/24 23:00) benztropine mesylate- unknown gabapentin [From NEURONTIN] Allergy (Unknown, Verified 07/13/24 23:00) Unknown fluphenazine [From Prolixin] Allergy (Verified 07/13/24 23:00) Unknown barium sulfate [BARIUM SULFATE] Adverse Reaction (Intermediate, Verified 07/13/24 23:00) Nausea and Vomiting haloperidol Adverse Reaction (Intermediate, Verified 07/13/24 23:00) Muscle tension in legs diphenhydramine [From Benadryl] Adverse Reaction (Unknown, Verified 07/13/24 23:00) urinary retention HPI Comments Details: Navid is a pleasant male. They are a patient of Dr Hogue. They are seen in the office today for the following urologic conditions. - hypogonadism - lower urinary tract symptoms Recent lab with low AndroGel Testosterone replacement had been stopped for no clear reason The patient has both low T and diabetes Recent published data from large scale intervention trials indicates the benefit from all diabetic males having testosterone greater than 400 T4DM Restart testosterone 07/31 T 162 Lower Urinary Tract Symptoms Prior office prostate procedures 2004 Prior use of tamsulosin Current medications alfuzosin Hypogonadism Restarted androgen replacement 2020 Discontinuity during COVID Baseline bipolar disease Labs - 08/29 495 Prior therapy testosterone packets [facility] Medical History (Updated 07/14/24 @ 00:08 by Regan Hogue MD) JUDY (obstructive sleep apnea) BPH (benign prostatic hyperplasia) Diabetes mellitus Essential hypertension HOCM (hypertrophic obstructive cardiomyopathy) Coronary artery disease Osteoarthritis GERD without esophagitis Vitamin D deficiency Schizoaffective disorder Congestive heart failure COVID-19 Thought disorder Nocturnal hypoxemia Constipation COPD (chronic obstructive pulmonary disease) Smoker Diabetes mellitus Obesity (BMI 30-39.9) Pure hypercholesterolemia Prolonged QT interval Aggression Hypertension CHF (congestive heart failure) Cardiac arrhythmia Myocardial infarction Surgical History History of ankle surgery History of intestinal surgery History of transurethral resection of prostate Family History Father Medical history unknown Mother Medical history unknown Sister Alive and well Social History Household Members: Friend(s) Household Members Other:: Roommate Housing: Apartment Housing Other:: [facility] Do you presently have visiting nurse or other home services: No Alcohol intake: never Comment: Sitter in room Patient Tobacco Use Status: Current everyday Tobacco user Tobacco use type: Cigarette Cigarette Packs Per Day: 0.5 Cigarettes Per Day: 10 Years Smoked: Many e-Cigarette/Vaping Use: Currently Using Second Hand Smoke Exposure: Yes Substance Use Type: Unknown Advance Directives Date on File: 01/14/24 service: No Current occupational status: disabled Sexual orientation: Straight/Heterosexual Cognitive needs: Yes Hearing needs: No Vision needs: Yes Review of Systems Const Denies chills and Denies fever(s) Card Reports no additional complaints and Denies syncope Resp Denies cough GI Denies abdominal pain and Denies heartburn Reports as per HPI and Denies change in libido Neuro Denies syncope Psych Denies change in libido Endo Denies change in libido Physical Exam Const General: cooperative, healthy appearing, comfortable and no acute distress Orientation/consciousness: patient oriented x3 HEENT Face and sinus: Yes normal facial exam Mouth: moist mucous membranes Neck Neck: Yes normal visual inspection, Yes full ROM and Yes trachea midline Chest Chest palpation & inspection: normal inspection of the chest Resp Effort & Inspection: normal respiratory effort, able to speak in complete sentences and no respiratory distress GI Inspection: Yes normal to inspection Back/Spine/Pelvis Cervical Spine: normal cervical lordosis Thoracic/Lumbar Spine: thoracic and lumbar spine normal to inspection Skin General skin exam: no rashes or lesions noted Neuro General: patient oriented x3, gait normal, tone normal and moves all extremities Extrem General: Yes normal to inspection and Yes capillary refill normal Assessment & Plan Assessment & Plan (1) Hypogonadism in male: Comment: Topical testosterone Code(s): E29.1 - Testicular hypofunction Category: Medical Plan Restart testosterone Three-month follow-up lab work Orders: Orders Prostate Specific Antigen 07/08/24 E29.1 - Testicular hypofunction Testosterone, Total 07/08/24 E29.1 - Testicular hypofunction Medications: New testosterone 1 packet transdermal DAILY 150 grams 5RF 30 days E29.1 - Testicular hypofunction Patient Instructions: Imaging studies, laboratory and physical exam results were discussed and reviewed in detail. No major barriers to patient understanding were identified. An opportunity to ask questions regarding the treatment plan was provided. All questions were answered. The patient expressed understanding and agreement with the above treatment plan. The patient is aware they should contact our office by phone for worsening of their current condition or the appearance of new urologic symptoms. Compliance is encouraged with any medications and followup testing that is ordered. It is a privilege to participate in the urologic care of your patient. If you have any questions or concerns regarding treatment for the above conditions, or other urologic issues, please do not hesitate to contact me. The office telephone contact is [phone]. This note is constructed using voice recognition software. While every effort has been made to ensure accuracy emts errors may have been included. Yours sincerely, Dr Jasiel Cox MD, [facility] - Urology Providers of Expert, Compassionate Care for the Genitourinary System Coding Level of Care Code Est Pt Level 4 (76186) Diagnoses Hypogonadism in male E29.1
== END 2024-07-02 11:18 | disposition home or self-care (01) ==
PROVIDERS: PCP Internal Medicine; Visit Provider Urology
DX: E29.1 Testicular hypofunction (principal)
CPT/HCPCS: 99214

== ENCOUNTER → 2024-07-02 10:29 | Outpatient (BNVA) | payer OTHER, SELFPAY | PROVIDERS: PCP Internal Medicine; Visit Provider Urology | DX: E29.1 Testicular hypofunction (principal) | CPT/HCPCS: 99212 ==

== ENCOUNTER 2024-07-08 13:40 | Outpatient (REF) | payer OTHER, SELFPAY ==
[2024-07-08 15:52] LABS: Mean Corpuscular HGB Conc 32.5 g/dl (31.0-36.0); Mean Corpuscular Hemoglobin 27.2 pg (27.0-33.0); Mean Corpuscular Volume 83.7 fL (80.0-98.0); Platelet Count 174 X10*3/uL (160-400); Red Blood Count 4.78 X10*6/uL (4.60-5.80); Red Cell Distribution Width 15.9 % (11.0-16.0); White Blood Count 8.5 X10*3/uL (4.8-10.8)
[2024-07-08 16:17] LABS: Anion Gap 16 (12-20); Blood Urea Nitrogen 21 mg/dL (9-16); Calcium 9.9 mg/dL (8.4-10.2); Carbon Dioxide 23 mmol/L (22-29); Chloride 107 mmol/L (96-108); Estimated Glomerular Filt Rate 46; Glucose Random 279 mg/dL (60-115); Potassium 3.6 mmol/L (3.3-5.1); Sodium 142 mmol/L (135-145)
[2024-07-08 16:53] LABS: Prostate Specific Antigen < 0.10 ng/mL (<0.05-4.0)
[2024-07-13 15:37] LABS: Testosterone, Total 162 ng/dL (250-1100)
== END 2024-07-08 13:41 | disposition home or self-care (01) ==
LOC: HO.LAB 13:40
PROVIDERS: Physician Assistant Medical; Urology; PCP Internal Medicine; Visit Provider Nurse Practitioner Family
DX: E78.00 Pure hypercholesterolemia, unspecified (principal); I25.118 Atherosclerotic heart disease of native coronary artery with other forms of angina pectoris; I42.1 Obstructive hypertrophic cardiomyopathy; R94.31 Abnormal electrocardiogram [ECG] [EKG]; E11.9 Type 2 diabetes mellitus without complications; I10 Essential (primary) hypertension; E55.9 Vitamin D deficiency, unspecified; Z23 Encounter for immunization; K59.00 Constipation, unspecified; K21.9 Gastro-esophageal reflux disease without esophagitis; M15.9 Polyosteoarthritis, unspecified; G47.33 Obstructive sleep apnea (adult) (pediatric); N40.1 Benign prostatic hyperplasia with lower urinary tract symptoms; R35.0 Frequency of micturition; E29.1 Testicular hypofunction; F25.0 Schizoaffective disorder, bipolar type; E66.9 Obesity, unspecified; F17.200 Nicotine dependence, unspecified, uncomplicated; Z79.4 Long term (current) use of insulin; Z79.82 Long term (current) use of aspirin; Z79.899 Other long term (current) 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; Z12.5 Encounter for screening for malignant neoplasm of prostate
CPT/HCPCS: 36415; 80048; 84153; 84403; 85027; 90471; 90656; 96127; 99212

== ENCOUNTER 2024-07-08 13:40 | Outpatient (AMB) | payer OTHER, SELFPAY ==
--- NOTE | 2024-07-08 14:07 | MHC.PC.OV ---
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 Required: No Accompanied by: Self / Same As Patient Allergies lithium [[place]] Allergy (Severe, Verified 07/13/24 23:00) Toxicity thiothixene Allergy (Severe, Verified 07/13/24 23:00) Swelling amoxicillin Allergy (Mild, Verified 07/13/24 23:00) Nose Bleed benztropine Allergy (Unknown, Verified 07/13/24 23:00) benztropine mesylate- unknown gabapentin [From NEURONTIN] Allergy (Unknown, Verified 07/13/24 23:00) Unknown fluphenazine [From Prolixin] Allergy (Verified 07/13/24 23:00) Unknown barium sulfate [BARIUM SULFATE] Adverse Reaction (Intermediate, Verified 07/13/24 23:00) Nausea and Vomiting haloperidol Adverse Reaction (Intermediate, Verified 07/13/24 23:00) Muscle tension in legs diphenhydramine [From Benadryl] Adverse Reaction (Unknown, Verified 07/13/24 23:00) urinary retention Medication List - Last Reconciled 07/13/24 by Regan Hogue MD acetaminophen (Tylenol) 650 mg PO Q6H PRN albuterol sulfate 90 mcg/actuation 2 puffs inhalation Q6H PRN 30 days alum-mag hydroxide-simeth 200-200-20 mg/5 mL 10 mL PO TID PRN aspirin 81 mg PO DAILY@0800 90 days atorvastatin 20 mg PO DAILY@1999 90 days cholecalciferol (vitamin D3) 25 mcg PO DAILY@0800 30 days clozapine 75 mg (3 x 25 mg) PO DAILY 30 days clozapine 100 mg PO DAILY@1999 docusate sodium 100 mg PO BID@799,1999 30 days furosemide (Lasix) 40 mg PO DAILY 90 days lurasidone 60 mg PO BEDTIME@1800 metoprolol succinate ER 100 mg See Protocol PO DAILY 90 days nicotine (polacrilex) 4 mg buccal Q2H PRN nitroglycerin 0.4 mg sublingual Q5M PRN omeprazole 20 mg PO BID@0630,1630 30 days polyethylene glycol 3350 17 grams PO DAILY 30 days sennosides-docusate sodium 8.6-50 mg (Senna Plus) 2 tabs PO DAILY 30 days testosterone 1 packet transdermal DAILY 30 days trazodone 50 mg PO BEDTIME 30 days Tobacco use date assessed: 07/08/24 Dental Screening Dental Screen Date: 07/08/24 Did you have a dental visit in the last 12 months?: No Did you have a dental problem in the last 6 months where you did not have access to dental care?: No Was dental information given to patient?: No HPI 3mof\u HPI Details Patient comes in today for his follow up visit States that he currently feels okay He was admitted to the hospital for a few days about a month ago for increasing SOB and was found to be in CHF He was seen by cardiology for follow up a couple of weeks ago and is currently waiting for his cardiac MRI to be scheduled Patient reports feeling dizzy at times, especially with prolonged walking; denies any headaches Denies any chest pains, no increased SOB No nausea/vomiting, no abdominal pain No change in bowel habits noted He needs a couple of his Rx refilled He was not able to get his follow up labs done prior to his appointment today Patient would also like to get his flu shot today PFS Medical History (Updated 07/14/24 @ 00:08 by Regan Hogue MD) JUDY (obstructive sleep apnea) BPH (benign prostatic hyperplasia) Diabetes mellitus Essential hypertension HOCM (hypertrophic obstructive cardiomyopathy) Coronary artery disease Osteoarthritis GERD without esophagitis Vitamin D deficiency Schizoaffective disorder Congestive heart failure COVID-19 Thought disorder Nocturnal hypoxemia Constipation COPD (chronic obstructive pulmonary disease) Smoker Diabetes mellitus Obesity (BMI 30-39.9) Pure hypercholesterolemia Prolonged QT interval Aggression Hypertension CHF (congestive heart failure) Cardiac arrhythmia Myocardial infarction Surgical History History of ankle surgery History of intestinal surgery History of transurethral resection of prostate Family History Father Medical history unknown Mother Medical history unknown Sister Alive and well Social History Household Members: Friend(s) Household Members Other:: Roommate Housing: Apartment Housing Other:: [facility] Do you presently have visiting nurse or other home services: No Alcohol intake: never Comment: Sitter in room Patient Tobacco Use Status: Current everyday Tobacco user Tobacco use type: Cigarette Cigarette Packs Per Day: 0.5 Cigarettes Per Day: 10 Years Smoked: Many e-Cigarette/Vaping Use: Currently Using Second Hand Smoke Exposure: Yes Substance Use Type: Unknown Advance Directives Date on File: 01/14/24 service: No Current occupational status: disabled Sexual orientation: Straight/Heterosexual Cognitive needs: Yes Hearing needs: No Vision needs: Yes Questionnaire PHQ-9 Over the last 2 weeks, how often have you been bothered by any of the following problems? 1. Little interest or pleasure in doing things: not at all 2. Feeling down, depressed, or hopeless: not at all 3. Trouble falling or staying asleep, or sleeping too much: not at all 4. Feeling tired or having little energy: not at all 5. Poor appetite or overeating: not at all 6. Feeling bad about yourself - or that you are a failure or have let yourself or your family down: not at all 7. Trouble concentrating on things, such as reading the newspaper or watching television: not at all 8. Moving or speaking so slowly that other people could have noticed. Or the opposite - being so fidgety or restless that you have been moving around a lot more than usual: not at all 9. Thoughts that you would be better off or of hurting yourself in some way: not at all Total score: 0 Depression Screening Interpretation: Negative (is on Rx) Depression Screening Done: Yes 18477 - PHQ-9 Billing: Yes Source: Developed by Drs. Ga Richard, Rosio Grigsby, Jose Johnson and colleagues, with an educational lulu from [employer]. Thrive Questionnaire Date Thrive assessed: 07/08/24 I am a: Patient What is your living situation today?: I have a steady place to live Within the past 12 months, did the food you bought not last and you didn't have the money to get more?: Never true Within the past 12 months, did you worry whether your food would run out before you got money to buy more?: Never true Do you have trouble paying for medicines?: No Do you have trouble getting transportation to medical appointments?: No Do you have trouble paying your heating and electricity bill?: No Do you have trouble taking care of your child, family member or friend?: No Do you have trouble with day-to-day activities such as bathing, preparing meals, shopping, managing finances, etc.?: No Are you currently unemployed and looking for a job?: No Are you interested in more education?: No Please select the resources that you would like help with: None Currently or been in a relationship where the following occur: No concerns reported THRIVE Score: 0 AUDIT C Alcohol Use Questionnaire (AUDIT-C) 1. How often do you have a drink containing alcohol?: Monthly or less 2. How many drinks containing alcohol do you have on a typical day when you are drinking?: 1 or 2 3. How often do you have six or more drinks on one occasion?: Never Total Score: 1 Score Reviewed/Action Taken: Yes LINN-7 AMB Questionnaire LINN-7 Date LINN - 7 assessed: 07/08/24 Feeling nervous, anxious, or on edge: 0 = Not at all Not being able to stop or control worryin = Not at all Worrying too much about different things: 0 = Not at all Trouble relaxin = Not at all Being so restless that it is hard to sit still: 0 = Not at all Becoming easily annoyed or irritable: 0 = Not at all Feeling afraid as if something awful might happen: 0 = Not at all Total LINN-7 score (0-4 normal; 5-9 mild; 10-14 moderate; 15-21 severe): 0 Source: Developed by Drs. Ga Richard, Rosio Grigsby, Jose Johnson and colleagues, with an educational lulu from [employer]. Review of Systems Const Denies chills, Denies fatigue, Denies fever(s) and Denies headache(s) ENT Denies dysphagia, Reports dizziness (on and off, especially with increased exertion or prolonged walking), Denies otalgia, Denies headache(s), Denies neck pain, Denies odynophagia and Denies sore throat Card Denies chest pain, Denies palpitations and Reports dyspnea on exertion (mild) Resp Denies chest congestion, Denies cough, Reports dyspnea on exertion (mild) and Denies wheezing GI Denies abdominal pain, Reports constipation (on and off), Denies dysphagia, Denies heartburn, Denies diarrhea, Denies nausea, Denies odynophagia and Denies vomiting Denies dysuria, Denies nocturia and Denies urinary frequency Musc Reports arthralgias (involving both knees, ankles and feet) and Denies neck pain Skin/Breast Denies rash Neuro Reports dizziness (on and off, especially with increased exertion or prolonged walking) and Denies headache(s) Endo Denies fatigue and Denies palpitations Aller/Immun Denies wheezing Physical exam (Primary Care) Vital Signs: Last Vital Signs Pulse 105 H 07/08/24 14:08 BP 138/80 07/08/24 14:08 Pulse Ox 95 07/08/24 14:08 Oxygen Delivery Method Room Air 07/08/24 14:08 BMI result Body Mass Index 34.2 Tobacco/Smoking Status: Tobacco use Status Tobacco use date assessed 07/08/24 07/08/24 14:11 Patient Tobacco Use Status Current everyday Tobacco 07/08/24 14:08 Tobacco use type Cigarette 07/08/24 14:08 e-Cigarette/Vaping Use Currently Using 07/08/24 14:08 PHQ-9: PHQ-9 Score PHQ-9: Total score 0 07/08/24 14:47 Depression Screening Interpretation: Negative (is on Rx) Thrive Assessment: Date of Thrive Assessment Date Thrive assessed 07/08/24 07/08/24 14:11 Currently or been in a relationship where the following occur: No concerns reported Const General: no acute distress and alert HENMT Ears: TM's normal bilaterally and EAC's normal Throat: Yes posterior oropharynx normal and Yes tonsils normal (no TP congestion noted) Neck Neck: Yes no lymphadenopathy and Yes supple Thyroid: Thyroid normal Resp Auscultation: clear to auscultation bilaterally, no rales and no wheezes Cardio Rate: regular rate Rhythm: regular rhythm Heart sounds: Murmur heart sound present systolic mid, soft and at the left sternal border GI Palpation (GI): Soft to palpation and nontender Auscultation: normal bowel sounds Skin Rashes: no rashes Extrem General: Yes no clubbing, cyanosis or edema Office Procedures Flu Questionnaire Does the patient have a severe egg allergy?: No Does the patient have severe life threatening allergies?: No Does the patient have a fever or illness today?: No Has the patient ever had Guillain-Adel Syndrome?: No Has the patient ever had any past reaction to a flu shot?: No Immunizations Fluarix Triv [id number] (PF) 45 mcg (15 mcg x 3)/0.5 mL IM syringe Performing Provider: Regan Hogue MD 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 transplanted heart: gray[place] heart Associated angina: with stable angina HOCM (hypertrophic obstructive cardiomyopathy) I42.1 Prolonged QT interval R94.31 Type 2 diabetes mellitus without complication, with long-term current use of insulin E11.9; Z79.4 Diabetes mellitus type: type 2 Diabetes mellitus paper stripper insulin use: with paper stripper use Diabetes mellitus complication status: without complication Essential hypertension I10 Vitamin D deficiency E55.9 Constipation, unspecified constipation type K59.00 Constipation type: unspecified constipation type GERD without esophagitis K21.9 Osteoarthritis of multiple joints, unspecified osteoarthritis type M15.9 Osteoarthritis location: multiple joints Osteoarthritis type: unspecified JUDY (obstructive sleep apnea) G47.33 Benign prostatic hyperplasia with urinary frequency N40.1; R35.0 Lower urinary tract symptom presence: symptoms present Lower urinary tract symptom detail: urinary frequency Hypogonadism in male E29.1 Schizoaffective disorder, bipolar type F25.0 Schizoaffective disorder type: bipolar Smoker F17.200 Obesity (BMI 30-39.9) E66.9 Assessment & Plan Assessment & Plan (1) Pure hypercholesterolemia: Code(s): E78.00 - Pure hypercholesterolemia, unspecified Category: Medical Plan: He was not able to get his follow up labs done yet and will go and get them done right away after he leaves the office later Reinforced low cholesterol diet Continue Atorvastatin 20 mg QD Will recheck his labs and fasting lipids in 3 months for follow up (2) Coronary artery disease: Code(s): I25.10 - Atherosclerotic heart disease of gray[place] coronary artery without angina pectoris Category: Medical Qualifiers: Coronary Disease-Associated Artery/Lesion type: [place] artery [place] vs. transplanted heart: gray[place] heart Associated angina: with stable angina Qualified Code(s): I25.118 - Atherosclerotic heart disease of [place] coronary artery with other forms of angina pectoris Plan: Continue Aspirin 81 mg QD Follow up with cardiology as scheduled - (3) HOCM (hypertrophic obstructive cardiomyopathy): Code(s): I42.1 - Obstructive hypertrophic cardiomyopathy Category: Medical Plan: He has a slight outflow tract murmur heard - could be from LVOT obstruction - treatment will reportedly be very limited mainly because of his psychiatric issues, per cardiology Follow up echocardiogram done in October 2023 revealed normal left ventricular cavity size, with severely increased left ventricular wall thickness. The left ventricular systolic function is hyperdynamic and visually estimated ejection fraction is >70%, with (+) dynamic LVOT obstruction noted. No obvious CON seen as before. His resting LVOT peak gradient 40 mm Hg, post valsalva 123 mm Hg - this is significantly worse than previous study. Right ventricular cavity size and systolic function are normal. The left atrium is severely dilated, with mildly elevated right atrial pressure and mild dilatation of the sinuses of Valsalva measuring 4.00 cm and mild dilatation of the ascending aorta measuring 3.9 cm. Holter monitor done previously came out normal with no PVCs or NSVT? Patient also had cardiac catheterization done back in 2016 that showed normal coronary arteries Follow-up with cardiology as scheduled (4) Prolonged QT interval: Code(s): R94.31 - Abnormal electrocardiogram [ECG] [EKG] Category: Medical Plan: Mostly due to his antipsychotics - will need close monitoring with cardiology (5) Diabetes mellitus: Code(s): E11.9 - Type 2 diabetes mellitus without complications Category: Medical Qualifiers: Diabetes mellitus type: type 2 Diabetes mellitus long-term insulin use: with long-term use Diabetes mellitus complication status: without complication Qualified Code(s): E11.9 - Type 2 diabetes mellitus without complications; Z79.4 - shelter (current) use of insulin Plan: His HgbA1c was most recently at 6.7% just a few weeks ago in late February 2024 - goal is < 7.0% Reinforced diabetic diet He used to be on Metformin ER 500 mg QD and Tradjenta 5 mg QD but these were stopped a month or so ago when he had JUHI He is currently on Admelog Q AC and HS per sliding scale Will recheck his labs and HgbA1c in 3 months for follow up (6) Essential hypertension: Code(s): I10 - Essential (primary) hypertension Category: Medical Plan: Reinforced low sodium diet - goal is systolic BP of at least 120 to 130 mm or less Continue Metoprolol ER 100 mg QD and Furosemide 40 mg QD (7) Vitamin D deficiency: Code(s): E55.9 - Vitamin D deficiency, unspecified Category: Medical Plan: Continue Vitamin D3 1000 units QD (8) Constipation: Code(s): K59.00 - Constipation, unspecified Category: Medical Qualifiers: Constipation type: unspecified constipation type Qualified Code(s): K59.00 - Constipation, unspecified Plan: Reinforced increased oral fluids and dietary fiber Continue Miralax 17 gm QD, Colace 200 mg BID and Senna Plus 2 tablets QD (9) GERD without esophagitis: Code(s): K21.9 - Gastro-esophageal reflux disease without esophagitis Category: Medical Plan: Dietary restrictions reinforced Continue Omeprazole 20 mg BID and Mylanta 10 ml TID (10) Osteoarthritis: Code(s): M19.90 - Unspecified osteoarthritis, unspecified site Category: Medical Qualifiers: Osteoarthritis location: multiple joints Osteoarthritis type: unspecified Qualified Code(s): M15.9 - Polyosteoarthritis, unspecified Plan: Involving both lower extremities Knee x-rays done last year revealed (+) OA changes in both knees He had some hardware (pin) removed from his right ankle by Dr. Arrieta in 10/2017 Ankle x-rays done last year also revealed (+) osteoarthritis changes X-rays of both feet done previously showed (+) OA changes in both feet as well Follow up with orthopedics as scheduled He was also advised again of the option of referral to Podiatry for further management if his foot symptoms persist or get worse (11) JUDY (obstructive sleep apnea): Code(s): G47.33 - Obstructive sleep apnea (adult) (pediatric) Category: Medical Plan: Patient is reminded to continue using his Oxygen when sleeping at night DAILY; he only needs to use it during the day as needed (if he feels SOB) Follow up with Sleep Medicine and with Pulmonary Medicine as scheduled (12) BPH (benign prostatic hyperplasia): Code(s): N40.0 - Benign prostatic hyperplasia without lower urinary tract symptoms Category: Medical Qualifiers: Lower urinary tract symptom presence: symptoms present Lower urinary tract symptom detail: urinary frequency Qualified Code(s): N40.1 - Benign prostatic hyperplasia with lower urinary tract symptoms; R35.0 - Frequency of micturition Plan: Continue Tamsulosin 0.4 mg Q HS Follow up with urology as scheduled (13) Hypogonadism in male: Comment: Topical testosterone Code(s): E29.1 - Testicular hypofunction Category: Medical Plan: Continue Testosterone (Androgel) 1% 2 packets transdermally OQ as instructed Follow up with urology as scheduled (14) Schizoaffective disorder: Code(s): F25.9 - Schizoaffective disorder, unspecified Category: Medical Qualifiers: Schizoaffective disorder type: bipolar Qualified Code(s): F25.0 - Schizoaffective disorder, bipolar type Plan: Continue Clozaril 75 mg QD and 100 mg Q HS and Latuda 60 mg QAM He is also on Trazodone 50 mg Q HS for sleep Follow up with psychiatry (Freeman Rodríguez) as scheduled (15) Smoker: Comment: Navid lives in a senior care where most of the resident smoke. that he ends up smoking due to peer pressure. but he smokes only a few cigarettes daily. advised to no more than 1 or 2 cigarettes a day. Code(s): F17.200 - Nicotine dependence, unspecified, uncomplicated Category: Social Hx Plan: Counseled again on smoking cessation (16) Obesity (BMI 30-39.9): Code(s): E66.9 - Obesity, unspecified Category: Medical Plan: Reinforced diet; exercise and weight appear to be unrealistic expectations in patient at this time due to his mutliple physical and psychiatric comorbidities Plan As requested, flu vaccine given to patient today Follow up in 3 months Orders: Orders Comprehensive [place]. Panel Fast 3 Months E78.00 - Pure hypercholesterolemia, unspecified Hemoglobin A1c 3 Months E11.9 - Type 2 diabetes mellitus without complications Microalbumin, Random (w Creat) 3 Months E11.9 - Type 2 diabetes mellitus without complications Vitamin B12 and Folate 3 Months E53.8 - Deficiency of other specified B group vitamins Influenza [id number] Immunization 07/08/24 Z23 - Encounter for immunization Lipid Panel 3 Months E78.00 - Pure hypercholesterolemia, unspecified Complete Blood Count Auto Diff 3 Months D64.9 - Anemia, unspecified B Type Natriuretic Peptide 3 Months I50.9 - Heart failure, unspecified TSH reflex Free T4 3 Months E78.00 - Pure hypercholesterolemia, unspecified UA CC w/rflx Micro + Cult 3 Months R30.0 - Dysuria Vitamin D 25-OH Total 3 Months E55.9 - Vitamin D deficiency, unspecified Medications: Changed From atorvastatin 20 mg PO DAILY@1999 30 days 30 tabs 0RF To atorvastatin 20 mg PO DAILY@1999 90 days 90 tabs 1RF From aspirin 81 mg PO DAILY@0800 30 days 30 tabs 0RF To aspirin 81 mg PO DAILY@0800 90 days 90 tabs 3RF
[2024-07-08 14:08] VITALS: BP 138/80; PULSE 105; O2SAT 95; BMI 34.2
== END 2024-07-08 14:57 | disposition home or self-care (01) ==
PROVIDERS: PCP Internal Medicine; Visit Provider Internal Medicine
DX: I25.118 Atherosclerotic heart disease of native coronary artery with other forms of angina pectoris (principal); I42.1 Obstructive hypertrophic cardiomyopathy; E11.9 Type 2 diabetes mellitus without complications; Z79.4 Long term (current) use of insulin; F25.0 Schizoaffective disorder, bipolar type; E78.00 Pure hypercholesterolemia, unspecified; R94.31 Abnormal electrocardiogram [ECG] [EKG]; I10 Essential (primary) hypertension; E55.9 Vitamin D deficiency, unspecified; K59.00 Constipation, unspecified; K21.9 Gastro-esophageal reflux disease without esophagitis; M15.9 Polyosteoarthritis, unspecified

== ENCOUNTER 2024-07-09 10:17 | Outpatient (REF) | payer OTHER, SELFPAY ==
[2024-07-09 12:27] LABS: Appearance Urine Clear; Color Urine Yellow; Glucose Urine UA 500 mg/dL (Negative); Leukocyte Esterase Urine Trace (Negative); Nitrite Urine Negative (Negative); PH 5.5 (5.0-9.0); UMIC TRIGGER UACC YES; Urine Blood Negative (Negative); Urine Ketones Negative (Negative); Urine Protein Negative (Neg-Trace)
[2024-07-09 12:36] LABS: Creatinine Urine 27.98 mg/dL; Microalbum/Creatinine Ratio Ur 253.7 ug/mg cr (<30)
[2024-07-09 12:38] LABS: Bacteria Urine None Seen (None Seen); Hyaline Casts Urine 0-2 /LPF (0-2); RBC Urine 0-2 /HPF (0-2); Squamous Epithelial Cell Urine 0-2 /HPF (0-2); WBC Urine 0-5 /HPF (0-5)
== END 2024-07-09 10:18 | disposition home or self-care (01) ==
LOC: HO.LAB 10:17
PROVIDERS: Absent Provider Urology; PCP Internal Medicine; Referring Provider Nurse Practitioner Family; Visit Provider Internal Medicine
DX: E11.9 Type 2 diabetes mellitus without complications (principal); R30.0 Dysuria
CPT/HCPCS: 81001; 82043; 82570

== ENCOUNTER 2024-09-08 13:37 | Outpatient (AMB) | payer OTHER, SELFPAY ==
--- NOTE | 2024-09-08 13:43 | A.OFFVIS_ITS ---
Vital Signs 09/08/24 13:44 Height 5 ft 9 in Weight 238 lb 1.588 oz BMI 35.2 BP 120/70 Blood Pressure Location Lt brachial Position Sitting Pulse 97 Pulse Source Pulse Oximeter Pulse Oximetry (%) 97 Oxygen Delivery Method Room Air Intake Visit Reasons: nocturnal hypoxemia Intake Note: pt is here for follow up and states he is using his oxygen at night. Sas Programmer Required: No Allergies lithium [[place]] Allergy (Severe, Verified 09/08/24 13:54) Toxicity thiothixene Allergy (Severe, Verified 09/08/24 13:54) Swelling amoxicillin Allergy (Mild, Verified 09/08/24 13:54) Nose Bleed benztropine Allergy (Unknown, Verified 09/08/24 13:54) benztropine mesylate- unknown gabapentin [From NEURONTIN] Allergy (Unknown, Verified 09/08/24 13:54) Unknown fluphenazine [From Prolixin] Allergy (Verified 09/08/24 13:54) Unknown barium sulfate [BARIUM SULFATE] Adverse Reaction (Intermediate, Verified 09/08/24 13:54) Nausea and Vomiting haloperidol Adverse Reaction (Intermediate, Verified 09/08/24 13:54) Muscle tension in legs diphenhydramine [From Benadryl] Adverse Reaction (Unknown, Verified 09/08/24 13:54) urinary retention Medication List - Last Reconciled 09/08/24 by Alec Little MD acetaminophen (Tylenol) 650 mg PO Q6H PRN albuterol sulfate 90 mcg/actuation 2 puffs inhalation Q6H PRN 30 days alum-mag hydroxide-simeth 200-200-20 mg/5 mL 10 mL PO TID PRN aspirin 81 mg PO DAILY@0800 90 days atorvastatin 20 mg PO DAILY@1999 90 days cholecalciferol (vitamin D3) 25 mcg PO DAILY@0800 30 days clozapine 75 mg (3 x 25 mg) PO DAILY 30 days clozapine 100 mg PO DAILY@1999 docusate sodium 100 mg PO BID@0800,1999 30 days furosemide (Lasix) 40 mg PO DAILY 90 days lurasidone 60 mg PO BEDTIME@1800 metoprolol succinate ER 100 mg See Protocol PO DAILY 90 days nicotine (polacrilex) 4 mg buccal Q2H PRN nitroglycerin 0.4 mg sublingual Q5M PRN omeprazole 20 mg PO BID@0630,1630 30 days polyethylene glycol 3350 17 grams PO DAILY 30 days sennosides-docusate sodium 8.6-50 mg (Senna Plus) 2 tabs PO DAILY 30 days testosterone 1 packet transdermal DAILY 30 days trazodone 50 mg PO BEDTIME 30 days Do you need a note to return to daycare/school/sports/work: No HPI HPI nocturnal hypoxemia: Details: Navid is 59 years old gentleman with the mental disorder, history of smoking and obstructive airway disorder. He also has hypertrophic cardiomyopathy with chronic congestive heart failure. Navid lives in a usp and is monitored by [facility] staff. In May of this year he was admitted to the hospital with acute respiratory failure which was due to acute congestive heart failure. After treatment he still had nocturnal hypoxemia which was corrected by oxygen supplementation at night. He has been using O2 2 L/minute at night for 6-7 hours. He claims that he has difficulty in falling asleep but does get about 6 hours sleep at night with oxygen. During the daytime he does not use oxygen except only once in a while if he feels short of breath. He has albuterol on hand but only uses once in a while. At present he has no respiratory distress even on walking he came to the office without much shortness of breath. [facility]LY [facility] Medical History JUDY (obstructive sleep apnea) BPH (benign prostatic hyperplasia) Diabetes mellitus Essential hypertension HOCM (hypertrophic obstructive cardiomyopathy) Coronary artery disease Osteoarthritis GERD without esophagitis Vitamin D deficiency Schizoaffective disorder Congestive heart failure COVID-19 Thought disorder Nocturnal hypoxemia Constipation COPD (chronic obstructive pulmonary disease) Smoker Diabetes mellitus Obesity (BMI 30-39.9) Pure hypercholesterolemia Prolonged QT interval Aggression Hypertension CHF (congestive heart failure) Cardiac arrhythmia Myocardial infarction Surgical History History of ankle surgery History of intestinal surgery History of transurethral resection of prostate Family History Father Medical history unknown Mother Medical history unknown Sister Alive and well Social History Household Members: Friend(s) Household Members Other:: Roommate Housing: Apartment Housing Other:: [facility] Do you presently have visiting nurse or other home services: No Alcohol intake: never Comment: Sitter in room Patient Tobacco Use Status: Current everyday Tobacco user Tobacco use type: Cigarette Cigarette Packs Per Day: 0.5 Cigarettes Per Day: 10 Years Smoked: Many e-Cigarette/Vaping Use: Currently Using Second Hand Smoke Exposure: Yes Substance Use Type: Unknown Advance Directives Date on File: 01/14/24 service: No Current occupational status: disabled Sexual orientation: Straight/Heterosexual Cognitive needs: Yes Hearing needs: No Vision needs: Yes Review of Systems Const All systems reviewed & are unremarkable except as noted in HPI and below Eyes Reports no additional complaints ENT Reports no additional complaints Card Details: Being followed by Cardiology for hypertrophic cardiomyopathy Denies chest pain, Denies irregular heart rhythm, Denies leg edema and Reports dyspnea on exertion (mild) Resp Denies cough, Reports dyspnea on exertion (mild) and Denies wheezing GI Reports no additional complaints Reports erectile dysfunction and Reports other (Being followed for BPH symptoms) Musc Reports no additional complaints Skin/Breast Reports system reviewed and no additional complaints, except as documented Neuro Reports no additional complaints Psych Reports anxiety and Reports mood swings Endo Reports no additional complaints Dilshad/Lymph Reports no additional complaints Aller/Immun Denies wheezing Physical Exam Vital Signs: Last Vital Signs Pulse 97 09/08/24 13:44 BP 120/70 09/08/24 13:44 Pulse Ox 97 09/08/24 13:44 Oxygen Delivery Method Room Air 09/08/24 13:44 BMI result Body Mass Index 35.2 Const General: comfortable, no acute distress, alert and awake Orientation/consciousness: patient oriented x3 HEENT Head: Yes normal to inspection General nose exam: No nasal polyps present and No nasal discharge present Face and sinus: Yes sinuses nontender Mouth: oropharynx normal Throat: Yes posterior oropharynx normal Eyes General: appearance normal, both eyes and all related structures Neck Neck: Yes normal visual inspection, Yes no lymphadenopathy, Yes trachea midline and Yes no JVD Thyroid: Thyroid normal Chest Chest palpation & inspection: normal inspection of the chest, normal palpation of entire chest wall and no tenderness Resp Other: Percussion note resonant, breath sounds are slightly distant, but no wheezes or rhonchi are heard. No crepitations Cardio Palpation: normal PMI Rate: regular rate Rhythm: regular rhythm Heart sounds: no gallops and no murmurs GI Palpation (GI): Soft to palpation, nontender, No hepatosplenomegaly present and no masses Auscultation: normal bowel sounds Back/Spine/Pelvis Thoracic/Lumbar Spine: thoracic and lumbar spine normal to inspection and thoraco-lumbar ROM limited Skin General skin exam: no rashes or lesions noted Neuro General: patient oriented x3, No gait normal (Slightly impaired and slow) and no focal motor deficits Cranial nerves: Yes CN's II-XII intact bilaterally Extrem General: Yes normal to inspection, Yes no clubbing, cyanosis or edema and Yes no calf tenderness Psych Appearance: grossly normal and well kempt Speech and movement: Normal speech and movement present Assessment & Plan Assessment & Plan (1) Smoker: Comment: Navid lives in a usp where most of the residents smoke. He states that he ends up smoking due to peer pressure. but he smokes only a few cigarettes daily. Currently is using 5 cigarettes a day. Code(s): F17.200 - Nicotine dependence, unspecified, uncomplicated Category: Social Hx Plan: Talked to him about smoking explained that it is best for him not to smoke. However at this time he should limit to no more than 5 cigarettes a day. [facility] stuff is aware of this. (2) Nocturnal hypoxemia: Comment: Nocturnal hypoxemia, recorded during his overnight sleep study. He has been using O2 2 L/minute at night. Code(s): G47.34 - Idiopathic sleep related nonobstructive alveolar hypoventilation Category: Medical Plan: Advise that he should use O2 for at least 6-8 hours per night. No need to use O2 during the daytime except if he feels having shortness of breath (3) JUDY (obstructive sleep apnea): Comment: Polysomnogram study in 2021 was negative for sleep apnea but he did have nocturnal hypoxemia. Code(s): G47.33 - Obstructive sleep apnea (adult) (pediatric) Category: Medical Plan: Advised to continue using O2 2 L/minute at night . And p.r.n. during the daytime (4) Smoking: Comment: Long-time smoker who has now cut down to 5 cigarettes a day. Denies any significant amount of cough or wheezing. Code(s): F17.200 - Nicotine dependence, unspecified, uncomplicated Category: Social Hx Plan: Talked to him about the risk of continued smoking. [facility] staff has been advised to limit his cigarettes to 5 per day. Coding Level of Care Code Est Pt Level 3 (54809) Diagnoses Smoker F17.200 Nocturnal hypoxemia G47.34 JUDY (obstructive sleep apnea) G47.33
[2024-09-08 13:44] VITALS: BP 120/70; PULSE 97; O2SAT 97; BMI 35.2
== END 2024-09-08 14:06 | disposition home or self-care (01) ==
PROVIDERS: PCP Internal Medicine; Visit Provider Internal Medicine
DX: F17.200 Nicotine dependence, unspecified, uncomplicated (principal); G47.34 Idiopathic sleep related nonobstructive alveolar hypoventilation; G47.33 Obstructive sleep apnea (adult) (pediatric)
CPT/HCPCS: 99213

== ENCOUNTER → 2024-09-08 13:37 | Outpatient (BNVA) | payer OTHER, SELFPAY | PROVIDERS: PCP Internal Medicine; Visit Provider Internal Medicine | DX: J44.9 Chronic obstructive pulmonary disease, unspecified (principal); R09.02 Hypoxemia; G47.34 Idiopathic sleep related nonobstructive alveolar hypoventilation; G47.33 Obstructive sleep apnea (adult) (pediatric); F17.210 Nicotine dependence, cigarettes, uncomplicated; Z99.81 Dependence on supplemental oxygen | CPT/HCPCS: 99212 ==

== ENCOUNTER 2024-09-23 09:52 | Outpatient (AMB) | payer OTHER, SELFPAY ==
--- NOTE | 2024-09-23 09:58 | A.OFFVIS_ITS ---
Intake Visit Reasons: 3M Labs/PVR(set) Intake Note: Patient is present for 3M LABS/PVR Urology Medication:TESTOSTERONE Antibiotic Allergy:AMOXICILLIN,GABAPENTIN, BARIUM SULFATE Blood Thinner:ASPIRIN Internal Controls Analyst Required: No Allergies lithium [[place]] Allergy (Severe, Verified 09/28/24 19:02) Toxicity thiothixene Allergy (Severe, Verified 09/28/24 19:02) Swelling amoxicillin Allergy (Mild, Verified 09/28/24 19:02) Nose Bleed benztropine Allergy (Unknown, Verified 09/28/24 19:02) benztropine mesylate- unknown gabapentin [From NEURONTIN] Allergy (Unknown, Verified 09/28/24 19:02) Unknown fluphenazine [From Prolixin] Allergy (Verified 09/28/24 19:02) Unknown barium sulfate [BARIUM SULFATE] Adverse Reaction (Intermediate, Verified 09/28/24 19:02) Nausea and Vomiting haloperidol Adverse Reaction (Intermediate, Verified 09/28/24 19:02) Muscle tension in legs diphenhydramine [From Benadryl] Adverse Reaction (Unknown, Verified 09/28/24 19:02) urinary retention HPI Comments Details: Navid is a pleasant male. They are a patient of Dr Hogue. They are seen in the office today for the following urologic conditions. - hypogonadism - lower urinary tract symptoms Telemedicine Evaluation 15 min Consultation NBO TV Shyam Video No labs The patient has both low T and diabetes Recent published data from large scale intervention trials indicates the benefit from all diabetic males having testosterone greater than 400 - T4DM continue T packets may benefit from seeds if unable to realiably apply or has cutaneous conversion 07/31 T 162 Lower Urinary Tract Symptoms Prior office prostate procedures 2004 Prior use of tamsulosin Current medications alfuzosin Hypogonadism Restarted androgen replacement 2020 Discontinuity during COVID Baseline bipolar disease Labs - 08/29 495 Prior therapy testosterone packets PFSH Medical History JUDY (obstructive sleep apnea) BPH (benign prostatic hyperplasia) Diabetes mellitus Essential hypertension HOCM (hypertrophic obstructive cardiomyopathy) Coronary artery disease Osteoarthritis GERD without esophagitis Vitamin D deficiency Schizoaffective disorder Congestive heart failure COVID-19 Thought disorder Nocturnal hypoxemia Constipation COPD (chronic obstructive pulmonary disease) Smoker Diabetes mellitus Obesity (BMI 30-39.9) Pure hypercholesterolemia Prolonged QT interval Aggression Hypertension CHF (congestive heart failure) Cardiac arrhythmia Myocardial infarction Surgical History History of ankle surgery History of intestinal surgery History of transurethral resection of prostate Family History Father Medical history unknown Mother Medical history unknown Sister Alive and well Social History Household Members: Other Household Members Other:: Roommate Housing: Assisted Living Facility Housing Other:: [facility] Do you presently have visiting nurse or other home services: No Unable to assess alcohol history related to: Unknown Alcohol intake: never Comment: Sitter in room Patient Tobacco Use Status: Current everyday Tobacco user Tobacco use type: Cigarette Cigarette Packs Per Day: 0.5 Cigarettes Per Day: 10 Years Smoked: Many e-Cigarette/Vaping Use: Currently Using Second Hand Smoke Exposure: Yes Substance Use Type: Unknown Advance Directives Date on File: 01/14/24 service: No Current occupational status: disabled Sexual orientation: Straight/Heterosexual Cognitive needs: Yes Hearing needs: No Vision needs: Yes Review of Systems Const All systems reviewed & are unremarkable except as noted in HPI and below Reports no additional complaints Resp Reports no additional complaints GI Reports no additional complaints Reports as per HPI Musc Reports no additional complaints Physical Exam Telemedicine evaluation Appropriate responses Regular breathing rate and rhythm HEENT Head: Yes normal to inspection Ears: hearing grossly normal bilaterally Eyes General: appearance normal, both eyes and all related structures Neck Neck: Yes normal visual inspection Chest Chest palpation & inspection: normal inspection of the chest Resp Effort & Inspection: normal respiratory effort and able to speak in complete sentences Telehealth Telehealth Telehealth Platform: [facility] Location of provider rendering services: practice address Location of patient: address on file Patient Identification confirmed using: Name, : Yes Telehealth method: video Patient verbally consented to treatment: Yes Patient verbally consented to billing insurance company: Yes Patient informed of any privacy concerns related to visit: Yes Minutes spent on Phone/Video with Pt.: 15 Assessment & Plan Assessment & Plan (1) BPH (benign prostatic hyperplasia): Code(s): N40.0 - Benign prostatic hyperplasia without lower urinary tract symptoms Category: Medical Qualifiers: Lower urinary tract symptom detail: urinary frequency Lower urinary tract symptom presence: symptoms present Qualified Code(s): N40.1 - Benign prostatic hyperplasia with lower urinary tract symptoms; R35.0 - Frequency of micturition (2) Hypogonadism in male: Comment: Topical testosterone Code(s): E29.1 - Testicular hypofunction Category: Medical Plan G Code G2211 Has been applied in accordance with CMS guidelines ( Medicare and Medicaid programs; [place] 2023 Payment Policies ) to convey the inherent complexity in ongoing patient care within the urology clinic. This deliberate utilization aligns with the visits complexity associated with medical care services serving as a focal point for necessary healthcare, addressing the patient's singular serious or complex condition. This judicious use ensure was appropriate reimbursement, especially in the context of managing such conditions within our specialized, longitudinal urologic practice. This patient has a complex and chronic urologic condition that requires longitudinal follow-up. CMS, Medicare and Medicaid programs; [place] 2023 Payment Policies Fed. Reg 88 (02): [id number] (May.142022) Ongoing T management Patient Instructions: Imaging studies, laboratory and physical exam results were discussed and reviewed in detail. No major barriers to patient understanding were identified. An opportunity to ask questions regarding the treatment plan was provided. All questions were answered. The patient expressed understanding and agreement with the above treatment plan. The patient is aware they should contact our office by phone for worsening of their current condition or the appearance of new urologic symptoms. Compliance is encouraged with any medications and followup testing that is ordered. It is a privilege to participate in the urologic care of your patient. If you have any questions or concerns regarding treatment for the above conditions, or other urologic issues, please do not hesitate to contact me. The office telephone contact is [phone]. This note is constructed using voice recognition software. While every effort has been made to ensure accuracy storeroom clerk errors may have been included. Yours sincerely, Dr Jasiel Cox MD, [facility] - Urology Providers of Expert, Compassionate Care for the Genitourinary System Coding Level of Care Code Tele Est Pt Level 3 (22395) Diagnoses Benign prostatic hyperplasia with urinary frequency N40.1; R35.0 Lower urinary tract symptom detail: urinary frequency Lower urinary tract symptom presence: symptoms present Hypogonadism in male E29.1
== END 2024-09-23 16:00 | disposition home or self-care (01) ==
LOC: HO.HUSH 09:52
PROVIDERS: PCP Internal Medicine; Visit Provider Urology
DX: N40.1 Benign prostatic hyperplasia with lower urinary tract symptoms (principal); R35.0 Frequency of micturition; E29.1 Testicular hypofunction
CPT/HCPCS: 99213

== ENCOUNTER → 2024-09-23 09:52 | Outpatient (BNVA) | payer OTHER, SELFPAY | PROVIDERS: PCP Internal Medicine; Visit Provider Urology ==

== ENCOUNTER 2024-09-28 18:45 | Inpatient (IN) | payer OTHER, SELFPAY ==
--- NOTE | ~2024-09-28 | XR_ITS ---
EXAMINATION: XR CHEST CLINICAL INFORMATION: confirm NG tube placement COMPARISON: May 29, 2024 TECHNIQUE: Frontal view of the chest was obtained. FINDINGS: The cardiomediastinal silhouette is stable. There is elevation of the right hemidiaphragm with distended apparent colonic bowel loops in the right upper quadrant. A gastric tube extends below the diaphragm. Tip of the gastric tube is not seen. The side-port is also not seen. The bony structures and soft tissues are unremarkable. XR/XR chest 1V IMPRESSION: 1. Gastric tube extends below the diaphragm. Tip of the tube is not seen. The side-port is also not seen. 2. Distended colonic bowel loops in the right upper quadrant. Electronically signed by: Dale Owen MD 09/28/2024 11:49 PM [facility]
--- NOTE | ~2024-09-28 | XR_ITS ---
EXAMINATION: XR ABDOMEN KUB CLINICAL INDICATION: tube placement COMPARISON: Previous of the same day. TECHNIQUE: AP view of the abdomen. FINDINGS: Dilated bowel loops are again seen. A gastric tube is now seen in good position extending below the diaphragm with side port overlying the gastric body. The bony structures and the soft tissues are unremarkable XR/XR KUB IMPRESSION: 1. Gastric tube in good position. 2. Dilated bowel loops are again seen without significant interval change. Electronically signed by: Dale Owen MD 09/29/2024 02:04 AM [facility]
--- NOTE | ~2024-09-28 | XR_ITS ---
EXAMINATION: XR ABDOMEN KUB CLINICAL INDICATION: Follow-up contrast on recent CT scan for SBO COMPARISON: CT abdomen/pelvis 09/29/2024 at 6:13 AM TECHNIQUE: AP supine view of the abdomen. FINDINGS: Multiple dilated loops of small bowel throughout the abdomen measuring up to 5.5 cm, mildly increased from 5 cm by my measurement on CT earlier this same day. Residual oral contrast is seen within the stomach, and loops of small bowel in the left lower quadrant, without definitive progression to distal small bowel loops or large bowel. No overt pneumoperitoneum. No abnormal soft tissue desiccation. No acute osseous abnormality. Visualized lung bases are clear. Enteric tube courses below diaphragm with the tip and side-port projecting over the stomach. XR/XR abdomen 1V IMPRESSION: Multiple dilated loops of small bowel throughout the abdomen. Residual oral contrast is seen within the stomach and loops of small bowel in the left lower quadrant, without definitive progression to distal small bowel loops or large bowel. Findings are concerning for ongoing small bowel obstruction. Electronically signed by: Rosanna Curry DO 09/29/2024 08:41 PM EST
--- NOTE | ~2024-09-28 | XR_ITS ---
EXAMINATION: XR ABDOMEN KUB CLINICAL INDICATION: CONTRAST VIA NGT, R/O COMPLETE SBO COMPARISON: 09/29/2024, and CT abdomen and pelvis 09/28/2024. TECHNIQUE: AP view of the abdomen. FINDINGS: NG tube present, tip terminating just above the GE junction level. This device should be advanced into the stomach. Numerous stacked loops of dilated small bowel in the central abdomen, similar to the prior recent exams, with numerous differential air-fluid levels in keeping with small bowel obstruction. Contrast has progressed into the colon and rectum on these images suggesting a partial SBO. No indirect evidence of free air. No abnormal calcifications or gross organomegaly. Degenerative changes in both hip joints, moderate. XR/XR KUB IMPRESSION: 1. Numerous loops of dilated stacked small bowel within the central abdomen, with differential air-fluid levels, consistent with mechanical SBO. 2. Contrast has progressed into the colon and rectum suggesting a partial SBO. Electronically signed by: Freeman Rhodes MD 09/30/2024 09:10 AM [facility]
--- NOTE | ~2024-09-28 | XR_ITS ---
EXAMINATION: XR ABDOMEN KUB CLINICAL INDICATION: ng tube placement COMPARISON: Correlation made with CT performed September 28, 2024 TECHNIQUE: AP view of the abdomen. FINDINGS: There are distended/dilated loops of small bowel. A gastric air-fluid level is noted. A gastric tube extends just below the diaphragm with side port just above the diaphragm. The bony structures and soft tissues are unremarkable. XR/XR KUB IMPRESSION: 1. Gastric tube extends just below the diaphragm with side port just above the diaphragm. Consider advancing another 7 to 10 cm. 2. Distended/dilated loops of small bowel with gastric air-fluid level noted. Electronically signed by: Dale Owen MD 09/29/2024 12:17 AM [facility]
--- NOTE | ~2024-09-28 | CT_ITS ---
EXAMINATION: CT ABDOMEN AND PELVIS WITHOUT CONTRAST CLINICAL INFORMATION: Bowel obstruction. COMPARISON: CT dated September 28, 2024 TECHNIQUE: Multidetector volumetric imaging was performed from the superior aspect of the liver through the pubic symphysis. Sagittal and coronal reformatted images were obtained on the technologist's workstation. Oral contrast given through the NG tube. This CT examination was performed using dose optimization techniques as appropriate, variously including the following: *Automated exposure control *Adjustment of mA and/or kV according to patient size (this includes techniques or standardized protocols for targeted exams where dose is matched to indication/reason for exam; i.e. extremities or head) *Use of iterative reconstruction technique DLP: 865 mGy-cm FINDINGS: Inadequate evaluation of the intra-abdominal organs and vascular structures due to lack of IV contrast. There is oral contrast within the lumen of the distended proximal jejunal loops. Multiple air-fluid levels and gas and fluid-filled distended degenerative loops with small caliber of the distal ileal loops. There is a 2.5 cm abdominal wall defect in the right lateral supraumbilical abdominal wall containing herniated omental fat. Fat-containing umbilical hernia. No ascites. No pneumoperitoneum. No pneumatosis intestinalis. Appendix is normal. The NG tube ends in the body of the stomach. There is swirling of the mesenteric vessels in the right mesenteric peritoneal cavity just below the liver. No hydronephrosis in the kidney. Pericardial effusion, small to moderate volume. No other change. CT/CT abdomen pelvis wo IV con IMPRESSION: Partial/intermittent mid to distal small bowel obstruction. No pneumoperitoneum. Fleischner guidelines were followed. Electronically signed by: Leon Soto MD 09/29/2024 07:24 AM [facility]
--- NOTE | ~2024-09-28 | XR_ITS ---
EXAMINATION: XR ABDOMEN KUB CLINICAL INDICATION: CONTRAST VIA NGT, R/O COMPLETE SBO. Dr. wiley film done at 2300, 120 mL Gastroview given at 19 25 mm Suys COMPARISON: 09/29/2024 TECHNIQUE: 2 AP views of the abdomen. FINDINGS: Oral contrast material primarily in the epigastric region. Redemonstration of multiple dilated loops of small bowel throughout the abdomen with air-fluid levels. No definite oral contrast is seen in the colon. Inferior to courses at least to the level of the distal esophagus. XR/XR KUB IMPRESSION: Redemonstration of multiple dilated loops of small bowel with multiple air-fluid levels. Contrast predominantly in the stomach. Appearance remains for continued small bowel obstruction. This study was presented today to September 30, 2024 for interpretation. Stat results provided at this time as requested by referring provider. Electronically signed by: Marita Mendenhall MD 09/30/2024 03:58 AM [facility]
--- NOTE | ~2024-09-28 | CT_ITS ---
EXAMINATION: CT ABDOMEN AND PELVIS WITHOUT CONTRAST CLINICAL INFORMATION: Abdominal pain and distention COMPARISON: 01/17/2024 TECHNIQUE: Multidetector volumetric imaging was performed from the superior aspect of the liver through the pubic symphysis. Sagittal and coronal reformatted images were obtained on the technologist's workstation. This CT examination was performed using dose optimization techniques as appropriate, variously including the following: *Automated exposure control *Adjustment of mA and/or kV according to patient size (this includes techniques or standardized protocols for targeted exams where dose is matched to indication/reason for exam; i.e. extremities or head) *Use of iterative reconstruction technique DLP: 858 mGy-cm FINDINGS: LUNG BASES: Unremarkable. ABDOMINAL AND PELVIC WALL: Bilateral fat-containing inguinal hernias. LIVER AND BILIARY TREE: Unremarkable. GALLBLADDER: Unremarkable. PANCREAS: Unremarkable. SPLEEN: Unremarkable. ADRENAL GLANDS: Unremarkable. KIDNEYS AND URETERS: Unremarkable. GASTROINTESTINAL TRACT: Multiple dilated loops of jejunum and proximal ileum with at least 2 transition points visualized one in the lower mid abdomen (3:82 and one in the left upper quadrant (3:49) concerning for a closed loop obstruction. Appendix is within normal limits. VASCULAR: Unremarkable LYMPH NODES/PERITONEUM: No lymphadenopathy. FREE FLUID: None. BLADDER: Unremarkable. PELVIC VISCERA: Unremarkable. OSSEOUS STRUCTURES: Unremarkable. CT/CT abdomen pelvis wo IV con IMPRESSION: Multiple dilated loops of jejunum and proximal ileum with at least 2 transition points visualized one in the lower mid abdomen and one in the left upper quadrant concerning for a closed loop obstruction. The findings and recommendations were discussed with Chava HAILE by telephone at 09/28/2024 9:14 PM PRODUCTION INSPECTOR and it was ascertained that the content and urgency of the report was understood at the time of direct communication. Electronically signed by: Fransisca Low MD 09/28/2024 10:14 PM [facility]
[2024-09-28 18:51] VITALS: BP 190/110; PULSE 92; O2SAT 94
[2024-09-28 19:01] VITALS: BP 154/79; PULSE 89; RESP 20; TEMP 37.2; O2SAT 92; BMI 35.7
[2024-09-28 19:17] LABS: MANUAL DIFF FLAG NO
[2024-09-28 19:22] LABS: Basophils Percent Auto 0.2 % (0-2); Eosinophils Percent Auto 0.3 % (0-4); Hematocrit 39.9 % (42.0-52.0); Hemoglobin 12.8 g/dl (14.0-18.0); Imm Gran Abs Auto 0.03 X10*3/uL (0.00-0.03); Imm Gran Pct Auto 0.3 % (0.0-0.4); Lymphocytes Absolute Auto 0.6 X10*3/uL (1.2-4.9); Lymphocytes Percent Auto 6.6 % (20-40); Mean Corpuscular HGB Conc 32.1 g/dl (31.0-36.0); Mean Corpuscular Hemoglobin 27.2 pg (27.0-33.0); Mean Corpuscular Volume 84.9 fL (80.0-98.0); Mean Platelet Volume 11.8 fL (9.4-12.4); Monocytes Absolute Auto 0.7 X10*3/uL (0.1-1.2); Monocytes Percent Auto 7.3 % (2-11); Neutrophils Absolute Auto 7.9 x10*3/uL (2.0-8.3); Neutrophils Percent Auto 85.3 % (45-73); Platelet Count 180 X10*3/uL (160-400); Red Cell Distribution Width 15.6 % (11.0-16.0); White Blood Count 9.2 X10*3/uL (4.8-10.8)
--- NOTE | 2024-09-28 19:23 | PC.NURSE ---
Patient reports being short of breath and self-reports hx of needing oxygen for high blood pressure . Denies use of CPAP at home. Did not arrive with oxygen and was not told in report that patient uses oxygen. 91-92% on room air (see triage assessment). Placed on 2L oxygen via nasal cannula for patient comfort at this time. Patient is irritable, agitated with most questions asked by this RN. When asked for basic information such as his height, patient stated well I'm taller than you clearly! geez! Hx aggression/violence/agitation per medical chart. Arrives from care home. Abdomen large, round, & distended. Reports abdominal pain, dizziness, nausea/vomiting/diarrhea for ~36 hours. Reports pain as 7-8 out of 10 at this time across whole abdomen . Patient requesting something to drink and was advised to remain NPO until evaluation and clearance by medical provider. Awaiting ED provider evaluation. 20g IV access established in left AC. Labs drawn and sent for analysis, awaiting results.
[2024-09-28 19:35] LABS: Alanine Aminotransferase 17 U/L (0-40); Albumin Level 4.3 g/dL (3.5-5.0); Alkaline Phosphatase 93 U/L (39-117); Anion Gap 19 (12-20); Aspartate Amino Transferase 21 U/L (5-37); Bilirubin Direct 0.1 mg/dL (0.0-0.5); Bilirubin Total 0.4 mg/dL (0.0-1.0); Blood Urea Nitrogen 28 mg/dL (9-16); Calcium 9.3 mg/dL (8.4-10.2); Carbon Dioxide 23 mmol/L (22-29); Chloride 108 mmol/L (96-108); Creatinine Clr Calc Pharmacy 60.2; Estimated Glomerular Filt Rate 45; Glucose Random 225 mg/dL (60-115); Lipase 27 U/L (8-78); Sodium 146 mmol/L (135-145); Total Protein 7.3 g/dL (6.5-8.0)
[2024-09-28 20:05] VITALS: BP 145/91; PULSE 87; RESP 18; TEMP 37.3; O2SAT 96
[2024-09-28 21:01] VITALS: RESP 20
[2024-09-28] MEDS: Morphine Sulfate 4 MG/ML CARTRIDGE IVPUSH (21:01)
[2024-09-28] MEDS: ondansetron HCL 4 MG/2 ML VIAL IVPUSH (21:01)
[2024-09-28] MEDS: 0.9 % Sodium Chloride 1,000 ML 999 ML IV (21:02)
--- NOTE | 2024-09-28 21:20 | PC.NURSE ---
Patient away for CT scan without contrast due to impaired renal function. Medicated with Morphine & Zofran per provider orders prior to imaging.
[2024-09-28 21:31] LABS: Influenza A PCR NEGATIVE (Negative); Influenza B PCR NEGATIVE (Negative); Resp Syncy Virus RNA Qual PCR NEGATIVE (Negative); SARS COV2 PCR INHOUSE NEGATIVE (Negative)
--- NOTE | 2024-09-28 22:01 | ED.GENADULT ---
HPI - General Adult General Chief complaint: Abdominal Pain Stated complaint: dizzy,nausea Time Seen by Provider: 09/28/24 20:41 Source: patient, RN notes reviewed and old records reviewed Mode of arrival: EMS Limitations: no limitations History of Present Illness ED Provider: Adalberto HAIR narrative: 59-year-old male with past medical history significant for diabetes, hypertension, BPH, hypertrophic cardiomyopathy, coronary artery disease, heart failure, schizoaffective disorder, obesity presents for evaluation abdominal pain. Patient presents from a half-way via EMS. He complains of abdominal pain to his entire abdomen for the last 36 hours. He has associated nausea, vomiting and diarrhea He reports a history of abdominal hernia He feels though his belly is more swollen than usual Denies any fevers, chills He reports that he is hungry in his requesting something to eat No coughing, shortness of breath Related Data Home Medications ?Medication ?Instructions ?Recorded ?Confirmed clozapine 100 mg tablet 100 mg PO DAILY@199904/28/24 09/28/24 acetaminophen 325 mg tablet 650 mg PO Q6H PRN Pain (Scale 05/27/24 09/28/24 (Tylenol) Score 1-3) aluminum-mag hydroxide-simethicone 10 ml PO TID PRN Indigestion 05/27/24 09/28/24 200 mg-200 mg-20 mg/5 mL oral susp lurasidone 60 mg tablet 60 mg PO BEDTIME@1800 05/27/24 09/28/24 nicotine (polacrilex) 4 mg buccal 4 mg buccal Q2H PRN Smoking 05/27/24 09/28/24 lozenge Cessation nitroglycerin 0.4 mg sublingual 0.4 mg sublingual Q5M PRN Chest 05/27/24 09/28/24 tablet Pain Previous Rx's ?Medication ?Instructions ?Recorded clozapine 25 mg tablet 75 mg (3 x 25 mg) PO DAILY 30 days 02/05/24 #90 tabs polyethylene glycol 3350 17 gram 17 g PO DAILY 30 days #30 ea 02/05/24 oral powder packet trazodone 50 mg tablet 50 mg PO BEDTIME 30 days #30 tabs 02/05/24 cholecalciferol (vitamin D3) 25 25 mcg PO DAILY@0800 30 days #30 05/05/24 mcg (1,000 unit) tablet tabs docusate sodium 100 mg capsule 100 mg PO BID@08,1999 30 days 06/04/24 #60 caps furosemide 40 mg tablet (Lasix) 40 mg PO DAILY 90 days #90 tabs 06/04/24 metoprolol succinate 100 mg 100 mg PO DAILY 90 days #90 tabs 06/04/24 tablet,extended release 24 hr albuterol sulfate 90 mcg/actuation 2 puff inhalation Q6H PRN 06/18/24 aerosol inhaler Shortness Of Breath Or Wheezing 30 days #1 inhaler testosterone 1 % (50 mg/5 gram) 1 packet transdermal DAILY 30 days 07/02/24 transdermal gel packet #150 grams aspirin 81 mg tablet,delayed 81 mg PO DAILY@799 90 days #90 07/08/24 release tabs atorvastatin 20 mg tablet 20 mg PO DAILY@1999 90 days #90 07/08/24 tabs sennosides 8.6 mg-docusate sodium 2 tab PO DAILY 30 days #60 tabs 09/09/24 50 mg tablet (Senna Plus) omeprazole 20 mg capsule,delayed 20 mg PO BID@0630,1630 30 days #60 09/15/24 release caps Allergies Allergy/AdvReac Type Severity Reaction Status Date / Time lithium [[place]] Allergy Severe Toxicity Verified 09/28/24 19:02 thiothixene Allergy Severe Swelling Verified 09/28/24 19:02 amoxicillin Allergy Mild Nose Bleed Verified 09/28/24 19:02 benztropine Allergy Unknown benztropine Verified 09/28/24 19:02 mesylate- unknown gabapentin [From NEURONTIN] Allergy Unknown Unknown Verified 09/28/24 19:02 fluphenazine [From Prolixin] Allergy Unknown Verified 09/28/24 19:02 barium sulfate AdvReac Intermediate Nausea and Verified 09/28/24 19:02 [BARIUM SULFATE] Vomiting haloperidol AdvReac Intermediate Muscle Verified 09/28/24 19:02 tension in legs diphenhydramine AdvReac Unknown urinary Verified 09/28/24 19:02 [From Benadryl] retention Review of Systems Constitutional: Constitutional: Denies body ache(s), Denies chills, Denies fever(s) and Denies headache(s) Eyes: Eyes: Denies blurry vision ENT: Denies headache(s) and Denies sore throat Cardiovascular: Cardiovascular: Denies chest pain and Denies dyspnea Respiratory: Respiratory: Denies cough and Denies dyspnea Gastrointestinal: Gastrointestinal: Reports abdominal pain, Reports diarrhea, Reports loose stools, Reports nausea and Reports vomiting Genitourinary: Genitourinary: Denies dysuria Musculoskeletal: Musculoskeletal: Denies back pain Integumentary/Breasts: Skin/Breast: Denies rash Neurologic: Denies headache(s) Psychiatric: Psychiatric: Denies anxiety [facility] Past Medical History Medical History JUDY (obstructive sleep apnea) BPH (benign prostatic hyperplasia) Diabetes mellitus Essential hypertension HOCM (hypertrophic obstructive cardiomyopathy) Coronary artery disease Osteoarthritis GERD without esophagitis Vitamin D deficiency Schizoaffective disorder Congestive heart failure COVID-19 Thought disorder Nocturnal hypoxemia Constipation COPD (chronic obstructive pulmonary disease) Smoker Diabetes mellitus Obesity (BMI 30-39.9) Pure hypercholesterolemia Prolonged QT interval Aggression Hypertension CHF (congestive heart failure) Cardiac arrhythmia Myocardial infarction Surgical History History of ankle surgery History of intestinal surgery History of transurethral resection of prostate Family History Family History Father Medical history unknown Mother Medical history unknown Sister Alive and well Social History Social History Household Members: Friend(s) Household Members Other:: Roommate Housing: Apartment Housing Other:: [facility] Do you presently have visiting nurse or other home services: No Unable to assess alcohol history related to: Unknown Alcohol intake: never Comment: Sitter in room Patient Tobacco Use Status: Current everyday Tobacco user Tobacco use type: Cigarette Cigarette Packs Per Day: 0.5 Cigarettes Per Day: 10 Years Smoked: Many Smoked in Last 30 Days: No e-Cigarette/Vaping Use: Currently Using Second Hand Smoke Exposure: Yes Use of substances other than those prescribed or required for medical reasons: Unknown Substance Use Type: Unknown Advance Directives: Yes Advance Directives on File: Yes Advance Directives Date on File: 01/14/24 service: No Current occupational status: disabled Sexual orientation: Straight/Heterosexual Cognitive needs: Yes Hearing needs: No Vision needs: Yes Physical Exam ED Vital Signs: Vital Signs - 24 hr 09/28/24 19:01 09/28/24 20:05 09/28/24 21:01 Temperature 98.9 F 99.1 F Pulse Rate 89 87 Respiratory Rate 20 18 20 Blood Pressure 154/79 H 145/91 H Pulse Oximetry 92 96 Oxygen Delivery Method Room Air Nasal Cannula Oxygen Flow Rate 2 09/28/24 22:18 09/29/24 00:15 Temperature 98.2 F 98.2 F Pulse Rate 83 86 Respiratory Rate 16 20 Blood Pressure 142/78 H 129/54 L Pulse Oximetry 96 95 Oxygen Delivery Method Nasal Cannula Room Air Oxygen Flow Rate 2 BMI result Body Mass Index 35.7 Const General: healthy appearing, comfortable, no acute distress, alert and awake Nutritional Appearance: well nourished Orientation/consciousness: patient oriented x3 HENMT Head: Yes normocephalic and Yes atraumatic Eyes Eyelids: Yes eyelids normal Conjunctivae: conjunctivae normal Sclerae: sclerae normal Corneas: corneas normal Pupils: Equal, round and reactive pupils present EOM: EOMs intact bilaterally Neck Neck: Yes full ROM Resp Effort & Inspection: normal respiratory effort, able to speak in complete sentences and not labored GI Other: Markedly distended abdomen. There appears to be a hernia/soft mass in the right abdominal wall Inspection: Yes obesity Palpation (GI): Soft to palpation, not firm, Tenderness to palpation present (GI) (Diffuse tenderness), no guarding and not rigid Auscultation: normoactive bowel sounds Skin General skin exam: elasticity normal Neuro General: patient oriented x3 Cranial nerves: Yes Equal, round and reactive pupils present and Yes Bilaterally intact EOM present Cognition (Neuro): normal cognition Extrem Other: Moving all extremities well without any obvious deformities Course Reevaluation(s) Reevaluation #1: Discussed with general surgery who recommends NG tube, suction for an hour and then oral contrast. She will also come in to evaluate the patient Time: 22:35 Reevaluation #2: I administered the patient's oral contrast through his NG tube after confirming placement of the NG tube within the stomach. The patient will be admitted to the surgical service. Time: 02:08 Medications Administered Discontinued Medications Generic Name Dose Route Start Last Admin Trade Name Freq PRN Reason Stop Dose Admin Sodium Chloride 1,000 mls @ 999 mls/hr 09/28/24 21:00 09/28/24 22:03 Ns IV 09/28/24 22:00 Infused .Q1H1M OZZY Infusion Morphine Sulfate 4 mg 09/28/24 20:53 09/28/24 21:01 Morphine Sulfate 4 Mg/Ml Cartridge IVPUSH 09/28/24 20:54 4 mg ONCE ONE Administration Protocol Ondansetron HCl 4 mg 09/28/24 20:53 09/28/24 21:01 Ondansetron Hcl 4 Mg/2 Ml Vial IVPUSH 09/28/24 20:54 4 mg ONCE ONE Administration Medical Decision Making Medical Decision Making [facility] Narrative: 59-year-old male past medical history as documented above presents for evaluation of abdominal pain. Has a history of chronic kidney disease, his creatinine is slightly elevated to 1.59, this is apparently above the cut off allowed for CT scan to perform a CT scan with IV contrast. He will have a CT scan ordered without IV contrast due to his distended abdomen with vomiting and diarrhea. The patient's labs are quite reassuring, he has no leukocytosis, his anemia is consistent with his baseline. He does have a left shift which she has had in his last 4 differentials. He has a sodium of 146 which may be related to some degree of dehydration, his renal function is elevated with a BUN of 20 and a creatinine of 1.59, this is around his baseline. He has a random glucose of 225 with no evidence of DKA. Otherwise electrolytes, LFTs within normal limits. Patient's troponin is within normal limits at 17, he has no chest pain. Differential Diagnosis Differential Diagnoses: The differential diagnosis associated with the presentation includes Abdominal pain Inguinal hernia Spigelian hernia Umbilical hernia Bowel obstruction Enteritis Cholecystitis Appendicitis Pancreatitis Lab Data [facility] Lab Attestation statement: I reviewed the patient's lab results. As above 09/28/24 19:13 09/28/24 19:13 Labs: Lab Results 09/28/24 09/28/24 09/28/24 Range/Units 19:13 20:49 22:22 WBC 9.2 (4.8-10.8) X10*3/uL RBC 4.70 (4.60-5.80) X10*6/uL Hgb 12.8 L (14.0-18.0) g/dl Hct 39.9 L (42.0-52.0) % MCV 84.9 (80.0-98.0) fL MCH 27.2 (27.0-33.0) pg MCHC 32.1 (31.0-36.0) g/dl RDW 15.6 (11.0-16.0) % Plt Count 180 (160-400) X10*3/uL MPV 11.8 (9.4-12.4) fL Immature Gran % (Auto) 0.3 (0.0-0.4) % Neut % (Auto) 85.3 H (45-73) % Lymph % (Auto) 6.6 L (20-40) % [place] % (Auto) 7.3 (2-11) % Eos % (Auto) 0.3 (0-4) % Baso % (Auto) 0.2 (0-2) % Lymph # (Auto) 0.6 L (1.2-4.9) X10*3/uL [place] # (Auto) 0.7 (0.1-1.2) X10*3/uL Eos # (Auto) 0.0 (0.0-0.4) X10*3/uL Baso # (Auto) 0.0 (0.0-0.2) X10*3/uL Abs Immat Gran (auto) 0.03 (0.00-0.03) X10*3/uL Absolute Neuts (auto) 7.9 (2.0-8.3) x10*3/uL Absolute Nucleated RBC 0.000 (0.0-0.012) X10*3/uL Nucleated RBC % (auto) 0.0 (0.0-0.2) /100WBC Sodium 146 H (135-145) mmol/L Potassium 4.0 (3.3-5.1) mmol/L Chloride 108 (96-108) mmol/L Carbon Dioxide 23 (22-29) mmol/L Anion Gap 19 (12-20) BUN 28 H (9-16) mg/dL Creatinine 1.59 H (0.5-1.4) mg/dL Estim Creat Clear Calc 60.2 Estimated GFR 45 Random Glucose 225 H (60-115) mg/dL Lactic Acid 1.2 (0.5-2.0) mmol/L Calcium 9.3 D (8.4-10.2) mg/dL Total Bilirubin 0.4 (0.0-1.0) mg/dL Direct Bilirubin 0.1 (0.0-0.5) mg/dL AST 21 (5-37) U/L ALT 17 (0-40) U/L Alkaline Phosphatase 93 (39-117) U/L Troponin I High Sens 17.0 (<3.5-35.0) ng/L Total Protein 7.3 (6.5-8.0) g/dL Albumin 4.3 (3.5-5.0) g/dL Lipase 27 (8-78) U/L Influenza Type A (PCR) NEGATIVE (Negative) Influenza Type B (PCR) NEGATIVE (Negative) RSV RNA Qual (PCR) NEGATIVE (Negative) SARS-CoV-2 RNA (RT-PCR) NEGATIVE (Negative) Discharge Plan Discharge Clinical Impression: Complete small bowel obstruction Patient Disposition: Admitted As Inpatient
--- NOTE | 2024-09-28 22:06 | PC.NURSE ---
Rebecca Guzman (group exercise manager): [phone] - Try this number first with updates on the patient. If unable to reach Rebecca, reach out to staff member (Surendra) below. Surendra: [phone]
[2024-09-28 22:18] VITALS: BP 142/78; PULSE 83; RESP 16; TEMP 36.8; O2SAT 96
[2024-09-28 22:46] LABS: Lactic Acid 1.2 mmol/L (0.5-2.0)
--- NOTE | 2024-09-28 23:17 | PC.NURSE ---
NG tube placed to left nare, instructed to connect to wall suction for 1 hour and report volume of gastric contents to Dr. Martínez. Pt being admitted for closed loop bowel obstruction. Awaiting surgical consult with .
[2024-09-29] VITALS (11 sets, daily range): BP systolic 122–186; BP diastolic 54–100; PULSE 80–89; RESP 16–20; TEMP 36.3–36.9; O2SAT 95–99
--- NOTE | 2024-09-29 | ECG_ITS ---
Test Reason : Pre-op clearance; hx of HOCM Blood Pressure : / mmHG Vent. Rate : 086 BPM Atrial Rate : 086 BPM P-R Int : 164 ms QRS Dur : 112 ms QT Int : 394 ms P-R-T Axes : 085 020 173 degrees QTc Int : 471 ms Normal sinus rhythm Left ventricular hypertrophy with repolarization abnormality ( Sokolow-Vences ) Abnormal ECG When compared with ECG of 27-MAY-2024 02:19, Premature atrial complexes are no longer Present Incomplete left bundle branch block is no longer Present Referred By: Alexis Manzanares Electronically Signed By:Javier Bah
--- NOTE | 2024-09-29 00:01 | PC.NURSE ---
NG suction paused for KUB at 00:00 on 09/29/2024. 20 minutes of suction remaining to complete 1 hour of suction. As of 00:00, 650 mL of yellow colored fluid drained via NG tube suction. Dr. Martínez & Adalberto, PA aware.
--- NOTE | 2024-09-29 00:47 | PC.NURSE ---
Upon entering the room to turn suction off at 00:30, the NG securement tape to nose peeled off on it's own, and the NG tube came out of the patient's nose. Patient did not remove the NG himself. Adalberto HAILE notified about accidental removal of NG. New NG placed at 00:40 by this RN, to left nare (again). Was able to aspirate gastric contents. Reapplied to suction. Plan for repeat KUB to confirm new NG tube placement, then gastro study afterwards. Different skin prep used prior to application of nose tape, and secured with additional tape to left side of chest. Dr. Martínez also notified.
--- NOTE | 2024-09-29 01:35 | PC.NURSE ---
Dr. Martínez at bedside speaking with patient. NG to wall suction. 1100 mL total drainage from NG tube (both 1st & 2nd NG tubes, see previous RN notes). KUB being obtained at this time. Plan for gastro contrast study via NG afterwards. Susu from radiology aware of plan and came to bedside during discussion. Patient is aware and agreeable to plan of care & plan for admission. Care ongoing by this RN.
--- NOTE | 2024-09-29 02:20 | PM.HPGS ---
History of Present Illness History of Present Illness Date of Service: 09/29/24 Chief complaint: abdominal pain Narrative: Yessica Carvalho is a 58 year old man with PMH significant for type 2 diabetes mellitus, essential hypertension, HOCM, hyperlipidemia, COPD, obstructive sleep apnea, constipation and schizoaffective disorder who was brought to the ED from his detention with complaints of abdominal pain distention little nausea and diarrhea. For the last couple of days he says he was having diarrhea not feeling well. He says his abdomen is gotten more distended and he was nauseated. He says this happened several times every few months. He was here earlier this year with an episode of abdominal pain distention and CT scan showing findings consistent with small-bowel obstruction and also findings of pneumatosis. Patient hemodynamically looked okay and his abdomen was relatively benign at that time and he did well with conservative care. Patient comes in today and his abdomen is very distended and the CT scan showed findings consistent with small-bowel obstruction with several transition zones questioning closed loop obstruction. Patient's white count is normal patient's lactic acid is normal. NG tube decompression was carried out and a 1000 cc of yellowish fluid was removed. Patient is feeling remarkably better. He also says that he has not paid but he does not feel like he really needs to. He has not Peed very much today. He does have issues with BPH and sees Dr. Cox. [facility] Past Medical History Medical History JUDY (obstructive sleep apnea) BPH (benign prostatic hyperplasia) Diabetes mellitus Essential hypertension HOCM (hypertrophic obstructive cardiomyopathy) Coronary artery disease Osteoarthritis GERD without esophagitis Vitamin D deficiency Schizoaffective disorder Congestive heart failure COVID-19 Thought disorder Nocturnal hypoxemia Constipation COPD (chronic obstructive pulmonary disease) Smoker Diabetes mellitus Obesity (BMI 30-39.9) Pure hypercholesterolemia Prolonged QT interval Aggression Hypertension CHF (congestive heart failure) Cardiac arrhythmia Myocardial infarction Family History Family History Father Medical history unknown Mother Medical history unknown Sister Alive and well Surgical History Surgical History History of ankle surgery History of intestinal surgery History of transurethral resection of prostate Social History Social History Household Members: Friend(s) Household Members Other:: Roommate Housing: Apartment Housing Other:: [facility] Do you presently have visiting nurse or other home services: No Unable to assess alcohol history related to: Unknown Alcohol intake: never Comment: Sitter in room Patient Tobacco Use Status: Current everyday Tobacco user Tobacco use type: Cigarette Cigarette Packs Per Day: 0.5 Cigarettes Per Day: 10 Years Smoked: Many Smoked in Last 30 Days: No e-Cigarette/Vaping Use: Currently Using Second Hand Smoke Exposure: Yes Use of substances other than those prescribed or required for medical reasons: Unknown Substance Use Type: Unknown Advance Directives: Yes Advance Directives on File: Yes Advance Directives Date on File: 01/14/24 service: No Current occupational status: disabled Sexual orientation: Straight/Heterosexual Cognitive needs: Yes Hearing needs: No Vision needs: Yes Meds Allergies Allergy/AdvReac Type Severity Reaction Status Date / Time lithium [[place]] Allergy Severe Toxicity Verified 09/28/24 19:02 thiothixene Allergy Severe Swelling Verified 09/28/24 19:02 amoxicillin Allergy Mild Nose Bleed Verified 09/28/24 19:02 benztropine Allergy Unknown benztropine Verified 09/28/24 19:02 mesylate- unknown gabapentin [From NEURONTIN] Allergy Unknown Unknown Verified 09/28/24 19:02 fluphenazine [From Prolixin] Allergy Unknown Verified 09/28/24 19:02 barium sulfate AdvReac Intermediate Nausea and Verified 09/28/24 19:02 [BARIUM SULFATE] Vomiting haloperidol AdvReac Intermediate Muscle Verified 09/28/24 19:02 tension in legs diphenhydramine AdvReac Unknown urinary Verified 09/28/24 19:02 [From Benadryl] retention Active Medications: Current Medications Enoxaparin Sodium (Enoxaparin Sodium 40 Mg/0.4 Ml Syringe) 40 mg SUBCUT DAILY OZZY Lactated Ringer's (Lr) 1,000 mls @ 100 mls/hr IVCONT .Q10H OZZY Morphine Sulfate (Morphine Sulfate 2 Mg/Ml Cartridge) 2 mg IVPUSH RQ4H PRN; Protocol PRN Reason: Pain, Severe (Pain Scale 7-10) Ondansetron HCl (Ondansetron Hcl 4 Mg/2 Ml Vial) 4 mg IVPUSH Q8H PRN PRN Reason: Nausea and Vomiting Pantoprazole Sodium (Pantoprazole Sodium 40 Mg/10 Ml Vial) 40 mg IVPUSH DAILY [facility] Sodium Chloride (0.9 % Sodium Chloride Flush 3 Ml Syringe) 3 ml IVFLUSH QSHIFT [facility] Home Medications ?Medication ?Instructions ?Recorded ?Confirmed ?Last Taken ?Type clozapine 100 mg tablet 100 mg PO DAILY@199904/28/24 09/28/24 09/27/24 20:00 History acetaminophen 325 mg tablet 650 mg PO Q6H PRN Pain (Scale 05/27/24 09/28/24 Unknown History (Tylenol) Score 1-3) aluminum-mag hydroxide-simethicone 10 ml PO TID PRN Indigestion 05/27/24 09/28/24 Unknown History 200 mg-200 mg-20 mg/5 mL oral susp lurasidone 60 mg tablet 60 mg PO BEDTIME@1800 05/27/24 09/28/24 09/27/24 20:00 History nicotine (polacrilex) 4 mg buccal 4 mg buccal Q2H PRN Smoking 05/27/24 09/28/24 Unknown History lozenge Cessation nitroglycerin 0.4 mg sublingual 0.4 mg sublingual Q5M PRN Chest 05/27/24 09/28/24 Unknown History tablet Pain Physical Exam Vital Signs: Vital Signs: Last Vital Signs Temp 98.2 F 09/29/24 00:15 Pulse 86 09/29/24 00:15 Resp 20 09/29/24 00:15 BP 129/54 L 09/29/24 00:15 Pulse Ox 95 09/29/24 00:15 O2 Del Method Room Air 09/29/24 00:15 O2 Flow Rate 2 09/28/24 22:18 BMI result Body Mass Index 35.7 Const: General: cooperative, healthy appearing, comfortable, no acute distress and acute distress Resp: Effort & Inspection: normal respiratory effort Auscultation: clear to auscultation bilaterally Cardio: Rate: regular rate Rhythm: regular rhythm GI: Other: Patient's abdomen is grossly distended hypoactive bowel sounds but his belly is generally soft with just some mild tenderness but no guarding no rebound no peritoneal signs. No masses noted. He has a reducible hernia that is relatively soft and nontender on the abdominal wall near the umbilical area Results Results Labs: Short CBC 09/28/24 Range/Units 19:13 WBC 9.2 (4.8-10.8) X10*3/uL Hgb 12.8 L (14.0-18.0) g/dl Hct 39.9 L (42.0-52.0) % Plt Count 180 (160-400) X10*3/uL BMP 09/28/24 19:13 Sodium 146 H Potassium 4.0 Chloride 108 Carbon Dioxide 23 BUN 28 H Creatinine 1.59 H Calcium 9.3 D Liver Function 09/28/24 Range/Units 19:13 Total Bilirubin 0.4 (0.0-1.0) mg/dL Direct Bilirubin 0.1 (0.0-0.5) mg/dL AST 21 (5-37) U/L ALT 17 (0-40) U/L Alkaline Phosphatase 93 (39-117) U/L Albumin 4.3 (3.5-5.0) g/dL Abdomen CT scan report/results: report reviewed and image reviewed CT scan - pelvis: report reviewed and image reviewed Additional studies: [facility] - [facility] ? Diagnostics Subcategory All Activity ??:?? All Time ??:?? All Subcategories Filter Laboratory Imaging Microbiology Pathology Blood Bank Tests Cardiovascular Other Specialty DATE TYPE STATUS REF RANGE/AUTHOR Hx Today 01:38 KUB X-Ray Signed Dale Owen 09/28/24 23:54 KUB X-Ray Signed Dale Owen 09/28/24 23:24 Chest X-Ray Signed Dale Owen 09/28/24 21:15 Abdomen/Pelvis CT Signed Fransisca Low 05/29/24 07:33 Chest X-Ray Signed Desean Cazares 05/27/24 06:36 Chest CTA Signed Neri Jacob 05/27/24 00:53 Chest X-Ray Signed Neri Jacob 04/11/24 14:25 Cardiolite Stress Test Signed Manuel Arriaza 03/05/24 14:25 Hand/Wrist X-Ray Signed Suma Grant 02/12/24 10:[address] Signed Cody Quinones 01/17/24 16:[address] Signed Iveth Gayle 01/17/24 16:[address] Signed Desean Cazares 01/17/24 16:20 Abdomen/Pelvis CT Signed Desean Cazares 01/17/24 16:10 Lumbar Puncture Fluoroscopy Signed Xavier Sanders 01/17/24 04:58 Chest X-Ray Signed Dale Owen 01/16/24 11:52 Abdomen/Pelvis CT Signed Mable Perez 01/15/24 16:19 KUB X-Ray Signed Xavier Hays 01/15/24 16:19 Chest X-Ray Signed Xavier Hays 01/15/24 16:[address] Signed Xavier aHys 01/15/24 15:45 Pulmonary Perfusion Imaging Signed Barrera Crystal 01/06/24 09:36 KUB X-Ray Signed Michael Amezcua 01/02/24 09:27 KUB X-Ray Signed Rainer Ortega 01/01/24 04:35 Abdomen/Pelvis CT Signed Mike Yu 12/31/23 19:55 KUB X-Ray Signed Isiah Nelson 12/31/23 19:28 Chest X-Ray Signed Wendy Nelsonnal 11/03/23 00:11 Chest X-Ray Signed Mike Yu 10/10/23 13:50 Chest X-Ray Signed LeslieIsiah 09/18/23 20:18 Chest X-Ray Signed Izaiah Pérez 07/20/23 12:39 Ankle X-Ray Signed Marita Mendenhall 06/14/23 12:17 Venous Duplex Signed All Peng 06/14/23 11:47 Ankle X-Ray Signed Vincenzo Mauricio 08/25/22 17:31 Knee X-Ray Signed Margot Dia 09/25/21 08:10 Chest X-Ray Signed Xavier Hays 08/12/21 08:56 Knee X-Ray Signed Wilmer Jasso 07/21/21 12:55 Knee X-Ray Signed Buzz Mascorro 07/21/21 12:55 Knee X-Ray Signed Buzz Mascorro 07/21/21 12:55 Foot X-Ray Signed Buzz Mascorro 07/21/21 12:55 Foot X-Ray Signed Buzz Mascorro 07/21/21 12:55 Ankle X-Ray Signed Buzz Mascorro 07/21/21 12:55 Ankle X-Ray Signed Najma Mascorrojaye 10/19/17 00:00 Diagnostic Report, External MRI Cardiac W&W/O Contrast He/Him/His Navid Carvalho Acute 59, M?1965 MRN#? [id number] ADM [place],?Emergency Department??ED Bed 17?-ED17? 5ft 9in 241lb 10.026oz BSA: 2.31m? BMI: 35.7kg/m? Acc#? [id number] Full Code Historical Visits Allergies Problems ? ONSET Complete small bowel obstruction BPH (benign prostatic hyperplasia) JUDY (obstructive sleep apnea) Essential hypertension Diabetes mellitus HOCM (hypertrophic obstructive cardiomyopathy) Coronary artery disease Chronic HFrEF (heart failure with reduced ejection fraction) Hospital discharge follow-up Osteoarthritis GERD without esophagitis Vitamin D deficiency Pancytopenia Delirium Schizoaffective disorder Fever Elevated troponin Acute metabolic encephalopathy Lactic acidosis Influenza A Adult general medical exam Wound of right ankle Open wound, lower leg Callus of foot Cellulitis of foot, right Nocturnal hypoxemia Acute respiratory failure with hypoxia Constipation Osteoarthritis of ankles, bilateral Osteoarthritis of knees, bilateral Bilateral ankle pain Bilateral knee pain Dyspnea Pain in both feet Smoker Encounter for Medicare annual wellness exam Smoking Obesity (BMI 30-39.9) Pure hypercholesterolemia Hypogonadism in male Prolonged QT interval Non-insulin dependent diabetes mellitus Abnormal EKG Hypertension Cardiac arrhythmia FPC current use of clozapine Vital Signs Today 00:15 BP 129/54?L Pulse 86? Resp 20? Temp 98.2 F? O2 Sat 95? Delivery Room Air? Home Meds Not Confirmed Prescription Monitoring Program MEDICATIONS (INSTRUCTIONS) LAST TAKEN Active acetaminophen [Tylenol] 650 [id number] (Scale Score 1-3) Unknown albuterol sulfate 90 mcg/actuation aerosol inhaler 2 nibwbkeuxhodicW2QVYZSqxqgfouj Of Breath Or Nhraazyy55 days#1 inhaler Unknown alum-mag hydroxide-simeth 10 mlPOTIDPRNIndigestion Unknown aspirin 81 mg tablet,delayed release 81 mgPODAILY@ days#90 tabs 09/28/24 atorvastatin 20 mg tablet 20 mgPODAILY@ days#90 tabs 09/27/24 20:00 cholecalciferol (vitamin D3) 25 mcg (1,000 unit) tablet 25 mcgPODAILY@209094 days#30 tabs 09/28/24 08:00 clozapine 75 mg(3 x 25 mg)YBXXIBR19 days#90 tabs 09/27/24 20:00 clozapine 100 mg tablet 100 mgPODAILY@2000 09/27/24 20:00 docusate sodium 100 mg capsule 100 mgPOBID@0800,441415 days#60 caps 09/28/24 08:00 furosemide 40 mg tablet 40 kcJMOJBWQ67 days#90 tabs 09/28/24 08:00 lurasidone 60 mgPOBEDTIME@1800 09/27/24 20:00 metoprolol succinate 100 mg tablet,extended release 24 hr 100 zeLYBDJAW00 days#90 tabs 09/28/24 08:00 nicotine (polacrilex) 4 kbbbhdslN5ZIYANymeecd Cessation Unknown nitroglycerin 0.4 swvgknruyjizR3NGJBBlgqn Pain Unknown omeprazole 20 mg capsule,delayed release 20 mgPOBID@0630,219020 days#60 caps 09/28/24 08:00 polyethylene glycol 3350 17 pSZOZSDR67 days#30 ea 09/28/24 08:00 sennosides 8.6 mg-docusate sodium 50 mg tablet 2 deeTYCHKHD20 days#60 tabs 09/28/24 08:00 ??testosterone 1 % (50 mg/5 gram) transdermal gel packet ??1 hxqayvovbggryrvduNMVGI07 days#150 grams Unknown trazodone 50 qtLEAJXUJBO31 days#30 tabs 09/27/24 20:00 My Widget No Data to Display Diagnostics Reports Navid Carvalho?(c)??He/Him/His??59??M??1965 ? Allergy/Adv: lithium, thiothixene, amoxicillin, benztropine, gabapentin, fluphenazine, barium sulfate, haloperidol, diphenhydramine (More??) Close KUB X-Ray (Signed) Dale Owen - 09/29/24 KUB X-Ray (Signed) Dale Owen - 09/28/24 Chest X-Ray (Signed) Dale Owen - 09/28/24 Abdomen/Pelvis CT (Signed) Fransisca Low - 09/28/24 Chest X-Ray (Signed) Sage,Desean - 05/29/24 Chest CTA (Signed) Neri Jacob - 05/27/24 Chest X-Ray (Signed) CecilNancyNeri - 05/27/24 Cardiolite Stress Test (Signed) Manuel Arriaza - 04/11/24 Hand/Wrist X-Ray (Signed) Suma Grant - 03/05/[address] (Signed) Cody Quinones - 02/12/[address] (Signed) Iveth Gayle - 01/17/[address] (Signed) Sage,Desean - 01/17/24 Abdomen/Pelvis CT (Signed) Sage,Desean - 01/17/24 Lumbar Puncture Fluoroscopy (Signed) Xavier Sanders - 01/17/24 Chest X-Ray (Signed) Dale Owen - 01/17/24 Abdomen/Pelvis CT (Signed) Mable Perez - 01/16/24 KUB X-Ray (Signed) Xavier Hays - 01/15/24 Chest X-Ray (Signed) Xavier Hays - 01/15/[address] (Signed) Xavier Hays - 01/15/24 Pulmonary Perfusion Imaging (Signed) Barrera Crystal - 01/15/24 KUB X-Ray (Signed) Michael Amezcua - 01/06/24 KUB X-Ray (Signed) Rainer Ortega - 01/02/24 Abdomen/Pelvis CT (Signed) [place],Mike - 01/01/24 KUB X-Ray (Signed) Leslie,Isiah - 12/31/23 Chest X-Ray (Signed) Leslie,Isiah - 12/31/23 Chest X-Ray (Signed) [place],Mike - 11/03/23 Chest X-Ray (Signed) Leslie,Isiah - 10/10/23 Chest X-Ray (Signed) Izaiah Pérez - 09/18/23 Ankle X-Ray (Signed) Marita Mendenhall - 07/20/23 Venous Duplex (Signed) All Peng - 06/14/23 Ankle X-Ray (Signed) Vincenzo Mauricio - 06/14/23 Knee X-Ray (Signed) Margot Dia - 08/25/22 Chest X-Ray (Signed) Xavier Hays - 09/25/21 Knee X-Ray (Signed) Wilmer Jasso - 08/12/21 Knee X-Ray (Signed) Subha,Najmaeer - 07/21/21 Knee X-Ray (Signed) Billikhltonya,Hadeer - 07/21/21 Foot X-Ray (Signed) Billikhltonya,Hadeer - 07/21/21 Foot X-Ray (Signed) hltonya,Hadeer - 07/21/21 Ankle X-Ray (Signed) hltonya,Hadeer - 07/21/21 Ankle X-Ray (Signed) Subha,Hadeer - 07/21/21 Diagnostic Report, External 10/19/17 Launch?Image [address] [address] [address] Scan Report Signed Patient: Navid Carvalho MR#: [id number] : 1965 Acct:[id number] Age/Sex: 59 / M ADM Date: 09/28/24 Loc: HO.ED Attending Dr: Ordering Physician: Chava Glover Date of Service: 09/28/24 Procedure(s): CT abdomen pelvis wo IV con Accession Number(s): [id number] cc: Chava Glover; Physician,Unknown ~ EXAMINATION: CT ABDOMEN AND PELVIS WITHOUT CONTRAST CLINICAL INFORMATION: Abdominal pain and distention COMPARISON: 01/17/2024 TECHNIQUE: Multidetector volumetric imaging was performed from the superior aspect of the liver through the pubic symphysis. Sagittal and coronal reformatted images were obtained on the technologist's workstation. This CT examination was performed using dose optimization techniques as appropriate, variously including the following: *Automated exposure control *Adjustment of mA and/or kV according to patient size (this includes techniques or standardized protocols for targeted exams where dose is matched to indication/reason for exam; i.e. extremities or head) *Use of iterative reconstruction technique DLP: 858 mGy-cm FINDINGS: LUNG BASES: Unremarkable. ABDOMINAL AND PELVIC WALL: Bilateral fat-containing inguinal hernias. LIVER AND BILIARY TREE: Unremarkable. GALLBLADDER: Unremarkable. PANCREAS: Unremarkable. SPLEEN: Unremarkable. ADRENAL GLANDS: Unremarkable. KIDNEYS AND URETERS: Unremarkable. GASTROINTESTINAL TRACT: Multiple dilated loops of jejunum and proximal ileum with at least 2 transition points visualized one in the lower mid abdomen (3:82 and one in the left upper quadrant (3:49) concerning for a closed loop obstruction. Appendix is within normal limits. VASCULAR: Unremarkable LYMPH NODES/PERITONEUM: No lymphadenopathy. FREE FLUID: None. BLADDER: Unremarkable. PELVIC VISCERA: Unremarkable. OSSEOUS STRUCTURES: Unremarkable. CT/CT abdomen pelvis wo IV con IMPRESSION: Multiple dilated loops of jejunum and proximal ileum with at least 2 transition points visualized one in the lower mid abdomen and one in the left upper quadrant concerning for a closed loop obstruction. The findings and recommendations were discussed with Chava HAILE by telephone at 09/28/2024 9:14 PM AWNING ERECTOR and it was ascertained that the content and urgency of the report was understood at the time of direct communication. Electronically signed by: Fransisca Low MD 09/28/2024 10:14 PM [facility] [place], [place] Dictated By: Fransisca Low MD Signed By: <Electronically signed by Fransisca Low MD in OV> 09/28/242213 DD/ 14 TD/TT: 09/28/242124 Geomagnetician: Assessment and Plan (1) Small bowel obstruction: Status: Acute Plan 59-year-old male with distended abdomen nausea normal white count normal lactic acid mild tenderness and CT scan showing obstruction question closed loop possibility. At this point patient's exam is really not worrisome he is doing well. NG tube decompression successful. We will repeat CT scan with p.o. contrast and long drink and see if the contrast goes all the way through into the colon. If patient worsens or findings are consistent with complete obstruction this then we will necessitate surgical exploration. Patient understands and agrees. Quality Stroke Does the patient have a stroke diagnosis?: No VTE Prior VTE?: No VTE Risk Level:: Surgical - low VTE Device Contraindication: N/A - Device Ordered VTE Drug Contraindication: N/A - Med Ordered Procedures Date of Service Date of Service: 09/29/24
[2024-09-29] MEDS: Lactated Ringers 1,000 ML 100 ML IVCONT ×3 (02:31→19:54)
[2024-09-29] MEDS: Diatrizoate Meglumine, Sodium 30 ML SOLUTION PO (06:07)
[2024-09-29 06:48] LABS: Appearance Urine Clear; Color Urine Yellow; Glucose Urine UA Negative (Negative); Leukocyte Esterase Urine Negative (Negative); Nitrite Urine Negative (Negative); PH 5.5 (5.0-9.0); Specific Gravity - Urine >= 1.030 (1.005-1.025); UMIC TRIGGER UACC YES; Urine Blood Negative (Negative); Urine Ketones Negative (Negative); Urine Protein 30 (1+) mg/dL (Neg-Trace)
[2024-09-29 07:07] LABS: Bacteria Urine None Seen (None Seen); RBC Urine 0-2 /HPF (0-2); Squamous Epithelial Cell Urine 0-2 /HPF (0-2); WBC Urine 0-5 /HPF (0-5)
[2024-09-29 07:11] LABS: Basophils Percent Auto 0.6 % (0-2); Eosinophils Percent Auto 0.3 % (0-4); Hematocrit 39.1 % (42.0-52.0); Hemoglobin 11.8 g/dl (14.0-18.0); Imm Gran Abs Auto 0.02 X10*3/uL (0.00-0.03); Imm Gran Pct Auto 0.3 % (0.0-0.4); Lymphocytes Absolute Auto 0.6 X10*3/uL (1.2-4.9); Lymphocytes Percent Auto 8.6 % (20-40); MANUAL DIFF FLAG SCAN; Mean Corpuscular HGB Conc 30.2 g/dl (31.0-36.0); Mean Corpuscular Hemoglobin 26.6 pg (27.0-33.0); Mean Corpuscular Volume 88.3 fL (80.0-98.0); Monocytes Absolute Auto 0.7 X10*3/uL (0.1-1.2); Neutrophils Absolute Auto 5.2 x10*3/uL (2.0-8.3); Neutrophils Percent Auto 79.2 % (45-73); PLT CLUMP 1; Red Blood Count 4.43 X10*6/uL (4.60-5.80); Red Cell Distribution Width 15.8 % (11.0-16.0); SCAN SMEAR FLAG 1
[2024-09-29 07:20] LABS: Anion Gap 16 (12-20); Blood Urea Nitrogen 28 mg/dL (9-16); Calcium 9.1 mg/dL (8.4-10.2); Carbon Dioxide 22 mmol/L (22-29); Chloride 110 mmol/L (96-108); Creatinine Clr Calc Pharmacy 55.7; Estimated Glomerular Filt Rate 41; Glucose Random 229 mg/dL (60-115); Potassium 4.1 mmol/L (3.3-5.1); Sodium 144 mmol/L (135-145)
[2024-09-29 07:38] LABS: White Blood Count 6.5 X10*3/uL (4.8-10.8)
[2024-09-29 07:40] LABS: SLIDE REVIEW VERIFIED
--- NOTE | 2024-09-29 08:17 | PHA.MEDREC ---
Pharmacy Consult ? Medication Reconciliation Pharmacy has completed the medication reconciliation. Checked med rec done overnight. Patient states per nurse he doesnt take losartan
[2024-09-29] MEDS: Enoxaparin Sodium 40 MG/0.4 ML SYRINGE SUBCUT (08:29)
[2024-09-29] MEDS: Pantoprazole Sodium 40 MG/10 ML VIAL IVPUSH (08:29)
--- NOTE | 2024-09-29 08:47 | P.EN_ITS ---
Event Note Date of Service: 09/29/24 Event Note: Reassessed at 0700. Patient continues to c/o abd pain not significantly improved by NGT decompression. Abd remains distended but soft with mild diffuse tenderness, no peritoneal signs. Unclear how long CT scan with contrast was performed after oral contrast administered but contrast remains in stomach on film. Will obtain f/u KUB to reeval at noon. Hospitalist consult for patient's medical comorbidities. Cont NGT decompression, IVF. He reports history of umbili payam hernia repair without mesh in 2015. Time Spent With Patient Time: Total time managing care of this patient today ____ minutes.
--- NOTE | 2024-09-29 14:57 | HO.PM.IMCN ---
History of Present Illness Data of Consult Service Date: 09/29/24 Primary Care Provider: Regan Hogue MD [facility] Reason for consult: Medical management and preop clearance Patient is a 59-year-old male with a PMH significant for HTN, [id number] type 2 diabetes, HLD, HOCM, COPD, JUDY on 2L NC at night, chronic constipation, schizoaffective disorder and resident of a assisted who was admitted to the hospital under general surgery services after CT showed findings consistent with small-bowel obstruction with several transition zones with question of closed loop obstruction. Patient had NGT placed with initial good response. Repeat imaging showed partial/intermittent mid to distal small-bowel obstruction without pneumoperitoneum. Hospitalist consult for medical management and preop clearance. Patient continues to complain of abdominal distention and primarily right-sided abdominal pain that has improved since presentation. Mild headache and some nausea but no vomiting. Has passed some flatus but had no bowel movement. Denies fever, chills. No chest pain, pressure, or palpitations. Denies shortness or breath or difficulty breathing. Review of Systems Review of Systems: Negative except for that which stated in the HPI [facility] Medical History JUDY (obstructive sleep apnea) BPH (benign prostatic hyperplasia) Diabetes mellitus Essential hypertension HOCM (hypertrophic obstructive cardiomyopathy) Coronary artery disease Osteoarthritis GERD without esophagitis Vitamin D deficiency Schizoaffective disorder Congestive heart failure COVID-19 Thought disorder Nocturnal hypoxemia Constipation COPD (chronic obstructive pulmonary disease) Smoker Diabetes mellitus Obesity (BMI 30-39.9) Pure hypercholesterolemia Prolonged QT interval Aggression Hypertension CHF (congestive heart failure) Cardiac arrhythmia Myocardial infarction Family History Father Medical history unknown Mother Medical history unknown Sister Alive and well Surgical History History of ankle surgery History of intestinal surgery History of transurethral resection of prostate Social History Household Members: Other Household Members Other:: Roommate Housing: Assisted Living Facility Housing Other:: H Do you presently have visiting nurse or other home services: No Unable to assess alcohol history related to: Unknown Alcohol intake: never Comment: Sitter in room Patient Tobacco Use Status: Current everyday Tobacco user Tobacco use type: Cigarette Cigarette Packs Per Day: 0.5 Cigarettes Per Day: 10 Years Smoked: Many e-Cigarette/Vaping Use: Currently Using Second Hand Smoke Exposure: Yes Substance Use Type: Unknown Advance Directives Date on File: 01/14/24 service: No Current occupational status: disabled Sexual orientation: Straight/Heterosexual Cognitive needs: Yes Hearing needs: No Vision needs: Yes Meds Allergies Allergy/AdvReac Type Severity Reaction Status Date / Time lithium [Kaufman] Allergy Severe Toxicity Verified 09/28/24 19:02 thiothixene Allergy Severe Swelling Verified 09/28/24 19:02 amoxicillin Allergy Mild Nose Bleed Verified 09/28/24 19:02 benztropine Allergy Unknown benztropine Verified 09/28/24 19:02 mesylate- unknown gabapentin [From NEURONTIN] Allergy Unknown Unknown Verified 09/28/24 19:02 fluphenazine [From Prolixin] Allergy Unknown Verified 09/28/24 19:02 barium sulfate AdvReac Intermediate Nausea and Verified 09/28/24 19:02 [BARIUM SULFATE] Vomiting haloperidol AdvReac Intermediate Muscle Verified 09/28/24 19:02 tension in legs diphenhydramine AdvReac Unknown urinary Verified 09/28/24 19:02 [From Benadryl] retention Active Medications: Current Medications Enoxaparin Sodium (Enoxaparin Sodium 40 Mg/0.4 Ml Syringe) 40 mg SUBCUT DAILY [facility] Last Admin: 09/29/24 08:29 Dose: 40 mg Lactated Ringer's (Lr) 1,000 mls @ 100 mls/hr IVCONT .Q10H [facility] Last Admin: 09/29/24 11:52 Dose: 100 mls/hr Morphine Sulfate (Morphine Sulfate 2 Mg/Ml Cartridge) 4 mg IVPUSH Q4H PRN; Protocol PRN Reason: Pain, Severe (Pain Scale 7-10) Ondansetron HCl (Ondansetron Hcl 4 Mg/2 Ml Vial) 4 mg IVPUSH Q8H PRN PRN Reason: Nausea and Vomiting Pantoprazole Sodium (Pantoprazole Sodium 40 Mg/10 Ml Vial) 40 mg IVPUSH DAILY [facility] Last Admin: 09/29/24 08:29 Dose: 40 mg Sodium Chloride (0.9 % Sodium Chloride Flush 3 Ml Syringe) 3 ml IVFLUSH QSHIFT OZZY Last Admin: 09/29/24 14:44 Dose: Not Given Home Medications ?Medication ?Instructions ?Recorded ?Confirmed ?Last Taken ?Type clozapine 100 mg tablet 100 mg PO DAILY@199904/28/24 09/28/24 09/27/24 20:00 History acetaminophen 325 mg tablet 650 mg PO Q6H PRN Pain (Scale 05/27/24 09/28/24 Unknown History (Tylenol) Score 1-3) aluminum-mag hydroxide-simethicone 10 ml PO TID PRN Indigestion 05/27/24 09/28/24 Unknown History 200 mg-200 mg-20 mg/5 mL oral susp lurasidone 60 mg tablet 60 mg PO BEDTIME@1800 05/27/24 09/28/24 09/27/24 20:00 History nicotine (polacrilex) 4 mg buccal 4 mg buccal Q2H PRN Smoking 05/27/24 09/28/24 Unknown History lozenge Cessation nitroglycerin 0.4 mg sublingual 0.4 mg sublingual Q5M PRN Chest 05/27/24 09/28/24 Unknown History tablet Pain Physical Exam Vital Signs and Narrative: Vital Signs: Last Vital Signs Temp 97.3 F 09/29/24 11:24 Pulse 89 09/29/24 11:24 Resp 19 09/29/24 11:24 BP 155/74 H 09/29/24 11:24 Pulse Ox 99 09/29/24 11:24 O2 Del Method Nasal Cannula 09/29/24 11:24 O2 Flow Rate 3 09/29/24 11:24 BMI result Body Mass Index 35.7 General: AOx3, no acute distress. NGT in place with bilious discharge Resp: CTA bilaterally CVS: S1, S2, RRR GI: Abd distended but soft. RUQ with mild tenderness to deep palpation. Skin: Warm, dry Neuro: Cranial nerves II-XII grossly intact bilaterally. Motor grossly intact bilaterally Extremities: No edema Psych: Appropriate affect Results Labs 09/29/24 06:54 09/29/24 06:54 Labs: Laboratory Results - last 24 hr 09/28/24 09/28/24 09/28/24 19:13 20:49 22:22 MCV 84.9 MCH 27.2 MCHC 32.1 RDW 15.6 Plt Count 180 MPV 11.8 Immature Gran % (Auto) 0.3 Neut % (Auto) 85.3 H Lymph % (Auto) 6.6 L [place] % (Auto) 7.3 Eos % (Auto) 0.3 Baso % (Auto) 0.2 Lymph # (Auto) 0.6 L [place] # (Auto) 0.7 Eos # (Auto) 0.0 Baso # (Auto) 0.0 Abs Immat Gran (auto) 0.03 Absolute Neuts (auto) 7.9 Absolute Nucleated RBC 0.000 Nucleated RBC % (auto) 0.0 Smear Tech's Comments Anion Gap 19 Estim Creat Clear Calc 60.2 Estimated GFR 45 Random Glucose 225 H Lactic Acid 1.2 Calcium 9.3 D Total Bilirubin 0.4 Direct Bilirubin 0.1 AST 21 ALT 17 Alkaline Phosphatase 93 Troponin I High Sens 17.0 Total Protein 7.3 Albumin 4.3 Lipase 27 Urine Color Urine Appearance Urine pH Ur Specific [place] Urine Protein Urine Glucose (UA) Urine Ketones Urine Blood Urine Nitrite Ur Leukocyte Esterase Urine RBC Urine WBC Ur Squamous Epith Cells Urine Bacteria Hyaline Casts Influenza Type A (PCR) NEGATIVE Influenza Type B (PCR) NEGATIVE RSV RNA Qual (PCR) NEGATIVE SARS-CoV-2 RNA (RT-PCR) NEGATIVE 09/29/24 09/29/24 06:27 06:54 MCV 88.3 MCH 26.6 L MCHC 30.2 L RDW 15.8 Plt Count TNP MPV TNP Immature Gran % (Auto) 0.3 Neut % (Auto) 79.2 H Lymph % (Auto) 8.6 L [place] % (Auto) 11.0 Eos % (Auto) 0.3 Baso % (Auto) 0.6 Lymph # (Auto) 0.6 L [place] # (Auto) 0.7 Eos # (Auto) 0.0 Baso # (Auto) 0.0 Abs Immat Gran (auto) 0.02 Absolute Neuts (auto) 5.2 Absolute Nucleated RBC 0.000 Nucleated RBC % (auto) 0.0 Smear Tech's Comments VERIFIED Anion Gap 16 Estim Creat Clear Calc 55.7 Estimated GFR 41 Random Glucose 229 H Lactic Acid Calcium 9.1 Total Bilirubin Direct Bilirubin AST ALT Alkaline Phosphatase Troponin I High Sens Total Protein Albumin Lipase Urine Color Yellow Urine Appearance Clear Urine pH 5.5 Ur Specific [place] >= 1.030 H Urine Protein 30 (1+) H Urine Glucose (UA) Negative Urine Ketones Negative Urine Blood Negative Urine Nitrite Negative Ur Leukocyte Esterase Negative Urine RBC 0-2 Urine WBC 0-5 Ur Squamous Epith Cells 0-2 Urine Bacteria None Seen Hyaline Casts 11-20 Influenza Type A (PCR) Influenza Type B (PCR) RSV RNA Qual (PCR) SARS-CoV-2 RNA (RT-PCR) Imaging Radiologist's Impressions: Impressions Abdomen/Pelvis CT 09/28/24 21:15 IMPRESSION: Multiple dilated loops of jejunum and proximal ileum with at least 2 transition points visualized one in the lower mid abdomen and one in the left upper quadrant concerning for a closed loop obstruction. The findings and recommendations were discussed with Chava HAILE by telephone at 09/28/2024 9:14 PM GEODESIST and it was ascertained that the content and urgency of the report was understood at the time of direct communication. Electronically signed by: Fransisca Low MD 09/28/2024 10:14 PM EST RP Chest X-Ray 09/28/24 23:24 IMPRESSION: 1. Gastric tube extends below the diaphragm. Tip of the tube is not seen. The side-port is also not seen. 2. Distended colonic bowel loops in the right upper quadrant. Electronically signed by: Dale Owen MD 09/28/2024 11:49 PM EST RP KUB X-Ray 09/28/24 23:54 IMPRESSION: 1. Gastric tube extends just below the diaphragm with side port just above the diaphragm. Consider advancing another 7 to 10 cm. 2. Distended/dilated loops of small bowel with gastric air-fluid level noted. Electronically signed by: Dale Owen MD 09/29/2024 12:17 AM EST RP KUB X-Ray 09/29/24 01:38 IMPRESSION: 1. Gastric tube in good position. 2. Dilated bowel loops are again seen without significant interval change. Electronically signed by: Dale Owen MD 09/29/2024 02:04 AM EST RP Abdomen/Pelvis CT 09/29/24 06:10 IMPRESSION: Partial/intermittent mid to distal small bowel obstruction. No pneumoperitoneum. Fleischner guidelines were followed. Electronically signed by: Leon Soto MD 09/29/2024 07:24 AM EST Assessment and Plan (1) Small bowel obstruction: Status: Acute Plan Patient is a 59-year-old male with a PMH significant for HTN, dtp-[id number]-ysijmerax type 2 diabetes, HLD, HOCM, COPD, JUDY on 2L NC at night, chronic constipation, schizoaffective disorder and resident of a assisted who was admitted to the hospital under general surgery services for small bowel obstruction Hospitalist consult for medical management and preop clearance. Small-bowel obstruction Plan as per General surgery Pre-op clearance Given pt's hx of HOCM, will be a moderate to high risk surgical candidate with RCRI 3 points Pt asymptomatic without chest pain, pressure, or palpitations Will check EKG If EKG without acute ischemia, no further workup or intervention needed prior to surgery Rbj-inzfvyu-qxyntodbc type 2 diabetes Hold metformin Will place on sliding scale insulin HLD Hold aspirin due to possible surgical procedure Hold statin until no longer NPO HOCM Hold furosemide until no longer NPO Continue metoprolol Asthma Not in acute exacerbation Continue home inhalers Schizoaffective disorder Continue clozapine, lurasidone Thank you for allowing us to participate in the care of this patient. WIll continue to follow along with you.
[2024-09-29] MEDS: Metoprolol Tartrate 50 MG TABLET PO (16:19)
[2024-09-29] MEDS: cloZAPine 100 MG TABLET PO (20:12)
[2024-09-29] MEDS: Diatrizoate Meglumine, Sodium 120 ML SOLUTION PO (23:57)
[2024-09-30 03:37] VITALS: BP 147/76; PULSE 86; RESP 18; TEMP 36.7; O2SAT 97
[2024-09-30] MEDS: Lactated Ringers 1,000 ML 100 ML IVCONT (03:37)
[2024-09-30 07:53] VITALS: BP 141/70; PULSE 86; RESP 16; TEMP 36.3; O2SAT 97
--- NOTE | 2024-09-30 08:21 | PC.NURSE ---
NG tube placed back on suction as per MD Martínez
--- NOTE | 2024-09-30 09:02 | PM.PNGS ---
Subjective Subjective Date of Service: 09/30/24 Interval history: Abdominal symptoms are minimally improved. He had several loose stools yesterday.. Small-bowel follow-through was undertaken last night. This morning's film still not officially read but demonstrates contrast in the distal colon. Patient passed loose stool and flatus this morning as well Physical Exam Vital Signs: Vital Signs: Last Vital Signs Temp 97.4 F 09/30/24 07:53 Pulse 86 09/30/24 07:53 Resp 16 09/30/24 07:53 BP 141/70 H 09/30/24 07:53 Pulse Ox 97 09/30/24 07:53 O2 Del Method Nasal Cannula 09/30/24 07:53 O2 Flow Rate 3.0 09/30/24 07:53 BMI result Body Mass Index 35.7 GI: Other: Abdomen still distended. Periumbilical tenderness but without any evidence of guarding, rebound, or rigidity. Objective Data Active Medications Albuterol Sulfate (Albuterol Sulfate 90 Mcg 8 Gm Inhaler) 2 puff INHALE Q6H PRN PRN Reason: Shortness Of Breath Or Wheezing Clozapine (Clozapine 25 Mg Tablet) 75 mg PO DAILY [facility] Last Admin: 09/29/24 16:25 Dose: Not Given Documented By: JACKIE Non-Admin Reason: Med Not Available Clozapine (Clozapine 100 Mg Tablet) 100 mg PO DAILY@1999 [facility] Last Admin: 09/29/24 20:12 Dose: 100 mg Documented By: GREGOR Enoxaparin Sodium (Enoxaparin Sodium 40 Mg/0.4 Ml Syringe) 40 mg SUBCUT DAILY [facility] Last Admin: 09/29/24 08:29 Dose: 40 mg Documented By: FRANCHESCA Lactated Ringer's (Lr) 1,000 mls @ 100 mls/hr IVCONT .Q10H [facility] Last Admin: 09/30/24 03:37 Dose: 100 mls/hr Documented By: GREGOR Metoprolol Tartrate (Metoprolol Tartrate 50 Mg Tablet) 50 mg PO BID [facility]; Protocol Morphine Sulfate (Morphine Sulfate 2 Mg/Ml Cartridge) 4 mg IVPUSH Q4H PRN; Protocol PRN Reason: Pain, Severe (Pain Scale 7-10) Nicotine Polacrilex (Nicotine Polacrilex Lozenge 4 Mg Lozenge) 4 mg BUCCAL Q2H PRN PRN Reason: Smoking Cessation Nitroglycerin (Nitroglycerin 0.4 Mg Tab.Subl) 0.4 mg SUBLINGUAL Q5M PRN PRN Reason: Chest Pain Non-Formulary Medication (Lurasidone) 60 mg PO BEDTIME@1800 O[facility]Y Ondansetron HCl (Ondansetron Hcl 4 Mg/2 Ml Vial) 4 mg IVPUSH Q8H PRN PRN Reason: Nausea and Vomiting Pantoprazole Sodium (Pantoprazole Sodium 40 Mg/10 Ml Vial) 40 mg IVPUSH DAILY [facility] Last Admin: 09/29/24 08:29 Dose: 40 mg Documented By: FRANCHESCA Sodium Chloride (0.9 % Sodium Chloride Flush 3 Ml Syringe) 3 ml IVFLUSH QSHIFT [facility] Last Admin: 09/30/24 08:29 Dose: Not Given Documented By: JACKIE Non-Admin Reason: IV Running Labs 09/29/24 06:54 09/29/24 06:54 Procedures Date of Service Date of Service: 09/30/24 Progress Note: A&P Assessment and plan (1) Small bowel obstruction: Status: Acute (2) Ileus: Status: Acute Plan Continue NG tube, IV hydration, and lateral pending, serial exams and labs Time Spent With Patient Time: Total time managing care of this patient today ____ minutes. Quality Stroke Does the patient have a stroke diagnosis?: No VTE Prior VTE?: No VTE Risk Level:: Surgical - low VTE Device Contraindication: N/A - Device Ordered VTE Drug Contraindication: N/A - Med Ordered
[2024-09-30] MEDS: Enoxaparin Sodium 40 MG/0.4 ML SYRINGE SUBCUT (09:05)
[2024-09-30 10:06] LABS: Anion Gap 12 (12-20); Carbon Dioxide 25 mmol/L (22-29); Chloride 115 mmol/L (96-108); Sodium 148 mmol/L (135-145)
--- NOTE | 2024-09-30 10:34 | P.PNIM_ITS ---
Subjective Subjective Date of Service: 09/30/24 Interval History: seen and examined report passing flatus asking for ice chips denies abd pain no other complaints Review of Systems Negative except HPI/interval history. Physical Exam 2 Vital Signs: Vital Signs: Last Vital Signs Temp 97.4 F 09/30/24 07:53 Pulse 86 09/30/24 07:53 Resp 16 09/30/24 07:53 BP 141/70 H 09/30/24 07:53 Pulse Ox 97 09/30/24 07:53 O2 Del Method Nasal Cannula 09/30/24 07:53 O2 Flow Rate 3.0 09/30/24 07:53 BMI result Body Mass Index 35.7 Const: Other: General - no acute distress, appears comfortable Cardiovascular - regular rate and rhythm, S1-S2 Lungs - normal respiratory effort, clear to auscultation bilaterally, no wheezing Abdomen - distended but soft; NGT in place Extremities - no edema bilaterally Neuro - awake and alert, no focal deficits Objective Data Active Medications Albuterol Sulfate (Albuterol Sulfate 90 Mcg 8 Gm Inhaler) 2 puff INHALE Q6H PRN PRN Reason: Shortness Of Breath Or Wheezing Clozapine (Clozapine 25 Mg Tablet) 75 mg PO DAILY [facility] Last Admin: 09/30/24 09:01 Dose: Not Given Documented By: JACKIE Non-Admin Reason: NPO NG Tube Clozapine (Clozapine 100 Mg Tablet) 100 mg PO DAILY@1999 [facility] Last Admin: 09/29/24 20:12 Dose: 100 mg Documented By: GREGOR Enoxaparin Sodium (Enoxaparin Sodium 40 Mg/0.4 Ml Syringe) 40 mg SUBCUT DAILY [facility] Last Admin: 09/30/24 09:05 Dose: 40 mg Documented By: JACKIE Lactated Ringer's (Lr) 1,000 mls @ 100 mls/hr IVCONT .Q10H [facility] Last Admin: 09/30/24 03:37 Dose: 100 mls/hr Documented By: GREGOR Metoprolol Tartrate (Metoprolol Tartrate 50 Mg Tablet) 50 mg PO BID [facility]; Protocol Last Admin: 09/30/24 09:01 Dose: Not Given Documented By: JACKIE Non-Admin Reason: NPO NG Tube Morphine Sulfate (Morphine Sulfate 2 Mg/Ml Cartridge) 4 mg IVPUSH Q4H PRN; Protocol PRN Reason: Pain, Severe (Pain Scale 7-10) Nicotine Polacrilex (Nicotine Polacrilex Lozenge 4 Mg Lozenge) 4 mg BUCCAL Q2H PRN PRN Reason: Smoking Cessation Nitroglycerin (Nitroglycerin 0.4 Mg Tab.Subl) 0.4 mg SUBLINGUAL Q5M PRN PRN Reason: Chest Pain Non-Formulary Medication (Lurasidone) 60 mg PO BEDTIME@1800 [facility] Ondansetron HCl (Ondansetron Hcl 4 Mg/2 Ml Vial) 4 mg IVPUSH Q8H PRN PRN Reason: Nausea and Vomiting Pantoprazole Sodium (Pantoprazole Sodium 40 Mg/10 Ml Vial) 40 mg IVPUSH DAILY [facility] Last Admin: 09/30/24 09:02 Dose: Not Given Documented By: JACKIE Non-Admin Reason: NPO Ng tube Sodium Chloride (0.9 % Sodium Chloride Flush 3 Ml Syringe) 3 ml IVFLUSH QSHIFT [facility] Last Admin: 09/30/24 08:29 Dose: Not Given Documented By: JACKIE Non-Admin Reason: IV Running Labs 09/29/24 06:54 09/30/24 09:44 Labs: Laboratory Results - last 24 hr 09/30/24 09:44 Anion Gap 12 Assessment and Plan (1) Small bowel obstruction: Status: Acute Plan Patient is a 59-year-old male with a PMH significant for HTN, gdn-zgvmfoj-toqodkhiv type 2 diabetes, HLD, HOCM, COPD, JUDY on 2L NC at night, chronic constipation, schizoaffective disorder and resident of a custodial who was admitted to the hospital under general surgery services for small bowel obstruction Hospitalist consult for medical management and preop clearance. Small-bowel obstruction Plan as per General surgery HyperNa JUHI change IVF to d5-1/2ns check SCr this AM Cty-uipxxkb-zojqpeyqs type 2 diabetes poc + sliding scale q6h HLD Hold aspirin due to possible surgical procedure Hold statin until no longer NPO HOCM Hold furosemide until no longer NPO Continue metoprolol Asthma Not in acute exacerbation Continue home inhalers Schizoaffective disorder Continue clozapine, lurasidone - avoid holding clozapine if possible at all (notified RN to d/w surg re: clamping NG and admin these meds) will continue to follow Quality Stroke Does the patient have a stroke diagnosis?: No VTE Prior VTE?: No VTE Risk Level:: Surgical - low VTE Device Contraindication: N/A - Device Ordered VTE Drug Contraindication: N/A - Med Ordered
[2024-09-30] MEDS: Dextrose 5 % and 0.45 % NaCl 1,000 ML 100 ML IVCONT ×2 (10:45→20:43)
[2024-09-30] MEDS: cloZAPine 25 MG TABLET 75 MG PO (10:45)
[2024-09-30 11:16] LABS: Blood Urea Nitrogen 20 mg/dL (9-16); Creatinine Clr Calc Pharmacy 73.7; Estimated Glomerular Filt Rate 56
[2024-09-30 11:24] LABS: Glucose, Whole Blood 106 mg/dL (60-115)
--- NOTE | 2024-09-30 11:30 | PC.NURSE ---
NG tube placed on gravity drainage per MD order
--- NOTE | 2024-09-30 12:34 | PC.NURSE ---
found pt with NG tube out . Pt states it fell out . Md Soto notifed . Pt okay to have sips of clears per MD Soto
[2024-09-30 15:11] VITALS: BP 173/90; PULSE 93; RESP 16; TEMP 36.8; O2SAT 93
[2024-09-30 16:16] LABS: Glucose, Whole Blood 123 mg/dL (60-115)
[2024-09-30 19:12] VITALS: BP 178/80; PULSE 88; RESP 16; TEMP 36.7; O2SAT 93
[2024-09-30] MEDS: cloZAPine 100 MG TABLET PO (20:45)
[2024-09-30] MEDS: Metoprolol Tartrate 50 MG TABLET PO (20:45)
[2024-09-30] MEDS: Morphine Sulfate 2 MG/ML CARTRIDGE 4 MG IVPUSH (20:46)
[2024-09-30 21:51] LABS: Glucose, Whole Blood 171 mg/dL (60-115)
[2024-10-01 03:52] VITALS: BP 136/70; PULSE 81; RESP 16; TEMP 36.3; O2SAT 97
[2024-10-01 04:02] LABS: Glucose, Whole Blood 187 mg/dL (60-115)
[2024-10-01] MEDS: Dextrose 5 % and 0.45 % NaCl 1,000 ML 100 ML IVCONT ×2 (04:05→14:56)
[2024-10-01] MEDS: Insulin Lispro 100 UNIT/ML 3 ML VIAL SUBCUT ×3 (04:05→20:30)
[2024-10-01 07:03] LABS: Anion Gap 11 (12-20); Blood Urea Nitrogen 15 mg/dL (9-16); Calcium 8.6 mg/dL (8.4-10.2); Carbon Dioxide 26 mmol/L (22-29); Chloride 113 mmol/L (96-108); Creatinine Clr Calc Pharmacy 83.3; Estimated Glomerular Filt Rate > 60; Glucose Random 175 mg/dL (60-115); Potassium 3.8 mmol/L (3.3-5.1); Sodium 146 mmol/L (135-145)
[2024-10-01 07:37] VITALS: BP 146/74; PULSE 88; RESP 18; TEMP 36.3; O2SAT 96
[2024-10-01] MEDS: cloZAPine 25 MG TABLET 75 MG PO (08:26)
[2024-10-01] MEDS: Metoprolol Tartrate 50 MG TABLET PO ×2 (08:26→20:29)
[2024-10-01] MEDS: Pantoprazole Sodium 40 MG/10 ML VIAL IVPUSH (08:26)
[2024-10-01] MEDS: Enoxaparin Sodium 40 MG/0.4 ML SYRINGE SUBCUT (08:27)
[2024-10-01] MEDS: 0.9 % Sodium Chloride Flush 3 ML SYRINGE IVFLUSH ×3 (08:32→20:34)
[2024-10-01 10:46] LABS: Glucose, Whole Blood 176 mg/dL (60-115)
--- NOTE | 2024-10-01 10:54 | HO.PM.IMPN ---
Subjective Subjective Date of Service: 10/01/24 Interval History: Complaining of abdominal pain mild 3-01/15, feels hungry, no other complaints Review of Systems All other system reviewed and are negative Physical Exam Vital Signs: Vital Signs: Last Vital Signs Temp 97.4 F 10/01/24 07:37 Pulse 88 10/01/24 07:37 Resp 18 10/01/24 07:37 BP 146/74 H 10/01/24 07:37 Pulse Ox 96 10/01/24 07:37 O2 Del Method Room Air 10/01/24 07:37 O2 Flow Rate 3 10/01/24 03:52 BMI result Body Mass Index 35.7 Const: Other: General sitting comfortably in no acute distress. Neck no JVD. CVS regular rate rhythm, Respiratory lungs clear to auscultation, no respiratory distress, no wheeze, no rhonchi. Gastrointestinal abdomen soft, distended, bowel sounds audible, no guarding , no rigidity. Extremities no edema. Neuro moving all 4 extremity speech clear, nonfocal. Skin no rash Objective Data Active Medications Albuterol Sulfate (Albuterol Sulfate 90 Mcg 8 Gm Inhaler) 2 puff INHALE Q6H PRN PRN Reason: Shortness Of Breath Or Wheezing Clozapine (Clozapine 25 Mg Tablet) 75 mg PO DAILY [facility] Last Admin: 10/01/24 08:26 Dose: 75 mg Documented By: CTAE Clozapine (Clozapine 100 Mg Tablet) 100 mg PO DAILY@1999 [facility] Last Admin: 09/30/24 20:45 Dose: 100 mg Documented By: GREGOR Enoxaparin Sodium (Enoxaparin Sodium 40 Mg/0.4 Ml Syringe) 40 mg SUBCUT DAILY [facility] Last Admin: 10/01/24 08:27 Dose: 40 mg Documented By: CATE Dextrose/Sodium Chloride (D51/2ns) 1,000 mls @ 100 mls/hr IVCONT .Q10H [facility] Last Admin: 10/01/24 04:05 Dose: 100 mls/hr Documented By: GREGOR Insulin Human Lispro (Insulin Lispro 100 Unit/Ml 3 Ml Vial) 0 unit SUBCUT Q6H [facility]; Protocol Last Admin: 10/01/24 04:05 Dose: 2 unit Documented By: GREGOR Lurasidone HCl (Lurasidone Hcl 20 Mg Tablet) 60 mg PO DAILY@1800 [facility] Metoprolol Tartrate (Metoprolol Tartrate 50 Mg Tablet) 50 mg PO BID [facility]; Protocol Last Admin: 10/01/24 08:26 Dose: 50 mg Documented By: CATE Morphine Sulfate (Morphine Sulfate 2 Mg/Ml Cartridge) 4 mg IVPUSH Q4H PRN; Protocol PRN Reason: Pain, Severe (Pain Scale 7-10) Last Admin: 09/30/24 20:46 Dose: 4 mg Documented By: GREGOR Nicotine Polacrilex (Nicotine Polacrilex Lozenge 4 Mg Lozenge) 4 mg BUCCAL Q2H PRN PRN Reason: Smoking Cessation Nitroglycerin (Nitroglycerin 0.4 Mg Tab.Subl) 0.4 mg SUBLINGUAL Q5M PRN PRN Reason: Chest Pain Ondansetron HCl (Ondansetron Hcl 4 Mg/2 Ml Vial) 4 mg IVPUSH Q8H PRN PRN Reason: Nausea and Vomiting Pantoprazole Sodium (Pantoprazole Sodium 40 Mg/10 Ml Vial) 40 mg IVPUSH DAILY [facility] Last Admin: 10/01/24 08:26 Dose: 40 mg Documented By: CATE Sodium Chloride (0.9 % Sodium Chloride Flush 3 Ml [facility]ringe) [facility] Last Admin: 10/01/24 08:32 Dose: 3 ml Documented By: CATE Labs 09/29/24 06:54 10/01/24 05:50 Labs: Laboratory Results - last 24 hr 09/30/24 09/30/24 09/30/24 09:44 11:13 16:13 Anion Gap Estim Creat Clear Calc 73.7 Estimated GFR 56 POC Glucose 106 123 H Random Glucose Calcium 09/30/24 10/01/24 10/01/24 21:46 03:54 05:50 Anion Gap 11 L Estim Creat Clear Calc 83.3 Estimated GFR > 60 POC Glucose 171 H 187 H Random Glucose 175 H Calcium 8.6 10/01/24 10:42 Anion Gap Estim Creat Clear Calc Estimated GFR POC Glucose 176 H Random Glucose Calcium Assessment and Plan (1) Small bowel obstruction: Status: Acute (2) Essential hypertension: Status: Acute (3) Diabetes mellitus: Status: Acute Plan 59-year-old male with a PMH significant for HTN, zyq-xehmmvd-handpvqjy type 2 diabetes, HLD, HOCM, COPD, JUDY on 2L NC at night, chronic constipation, schizoaffective disorder and resident of a assisted who was admitted to the hospital under general surgery services for small bowel obstruction Hospitalist consult for medical management and preop clearance. Small-bowel obstruction KUB showed numerous loops of dilated stat small bowel within the central abdomen with air-fluid levels consistent with mechanical SBO, contrast progress into the colon and rectum suggesting PSBO Continue NPO, IV Protonix, further plan as per General surgery Acute HyperNa Sodium trending down continue D5 half-normal saline follow BMP JUHI resolved Vus-zsciriq-geuorktnx type 2 diabetes stable bs follow poc + sliding scale q6h HLD Hold aspirin and statin due to possible surgical procedure HOCM Hold furosemide until no longer NPO, Continue metoprolol Asthma Not in acute exacerbation, Continue home inhalers Schizoaffective disorder Continue clozapine, lurasidone - avoid holding clozapine if possible at all Class 2 obesity recommend low-calorie diet DVT prophylaxis Lovenox Will continue to follow Quality Stroke Does the patient have a stroke diagnosis?: No VTE Prior VTE?: No VTE Risk Level:: Surgical - low VTE Device Contraindication: N/A - Device Ordered VTE Drug Contraindication: N/A - Med Ordered
--- NOTE | 2024-10-01 13:03 | P.PNGS_ITS ---
Subjective Subjective Date of Service: 10/01/24 Interval history: Patient was sitting up in the chair. A bit confusing dialogue which with the patient's psychiatric history has been his baseline. He has been tolerating sips of liquids. Passing loose stool. Would like to have his diet advanced. Physical Exam 2 Vital Signs: Vital Signs: Last Vital Signs Temp 97.4 F 10/01/24 07:37 Pulse 88 10/01/24 07:37 Resp 18 10/01/24 07:37 BP 146/74 H 10/01/24 07:37 Pulse Ox 96 10/01/24 07:37 O2 Del Method Room Air 10/01/24 07:37 O2 Flow Rate 3 10/01/24 03:52 BMI result Body Mass Index 35.7 GI: Other: Abdomen is still distended but softer. Mild periumbilical tenderness but no evidence of any guarding, rebound, or rigidity. Objective Data Active Medications Albuterol Sulfate (Albuterol Sulfate 90 Mcg 8 Gm Inhaler) 2 puff INHALE Q6H PRN PRN Reason: Shortness Of Breath Or Wheezing Clozapine (Clozapine 25 Mg Tablet) 75 mg PO DAILY [facility] Last Admin: 10/01/24 08:26 Dose: 75 mg Documented By: CATE Clozapine (Clozapine 100 Mg Tablet) 100 mg PO DAILY@1999 [facility] Last Admin: 09/30/24 20:45 Dose: 100 mg Documented By: GREGOR Enoxaparin Sodium (Enoxaparin Sodium 40 Mg/0.4 Ml Syringe) 40 mg SUBCUT DAILY [facility] Last Admin: 10/01/24 08:27 Dose: 40 mg Documented By: CATE Dextrose/Sodium Chloride (D51/2ns) 1,000 mls @ 100 mls/hr IVCONT .Q10H [facility] Last Admin: 10/01/24 04:05 Dose: 100 mls/hr Documented By: GREGOR Insulin Human Lispro (Insulin Lispro 100 Unit/Ml 3 Ml Vial) 0 unit SUBCUT QIDACHS [facility]; Protocol Lurasidone HCl (Lurasidone Hcl 20 Mg Tablet) 60 mg PO DAILY@1800 OZZY Metoprolol Tartrate (Metoprolol Tartrate 50 Mg Tablet) 50 mg PO BID [facility]; Protocol Last Admin: 10/01/24 08:26 Dose: 50 mg Documented By: CATE Morphine Sulfate (Morphine Sulfate 2 Mg/Ml Cartridge) 4 mg IVPUSH Q4H PRN; Protocol PRN Reason: Pain, Severe (Pain Scale 7-10) Last Admin: 09/30/24 20:46 Dose: 4 mg Documented By: GREGOR Nicotine Polacrilex (Nicotine Polacrilex Lozenge 4 Mg Lozenge) 4 mg BUCCAL Q2H PRN PRN Reason: Smoking Cessation Nitroglycerin (Nitroglycerin 0.4 Mg Tab.Subl) 0.4 mg SUBLINGUAL Q5M PRN PRN Reason: Chest Pain Ondansetron HCl (Ondansetron Hcl 4 Mg/2 Ml Vial) 4 mg IVPUSH Q8H PRN PRN Reason: Nausea and Vomiting Pantoprazole Sodium (Pantoprazole Sodium 40 Mg/10 Ml Vial) 40 mg IVPUSH DAILY [facility] Last Admin: 10/01/24 08:26 Dose: 40 mg Documented By: CATE Sodium Chloride (0.9 % Sodium Chloride Flush 3 Ml Syringe) 3 ml IVFLUSH QSHIFT [facility] Last Admin: 10/01/24 08:32 Dose: 3 ml Documented By: CATE Labs 09/29/24 06:54 10/01/24 05:50 Labs: Laboratory Results - last 24 hr 09/30/24 09/30/24 10/01/24 16:13 21:46 03:54 Anion Gap Estim Creat Clear Calc Estimated GFR POC Glucose 123 H 171 H 187 H Random Glucose Calcium 10/01/24 10/01/24 05:50 10:42 Anion Gap 11 L Estim Creat Clear Calc 83.3 Estimated GFR > 60 POC Glucose 176 H Random Glucose 175 H Calcium 8.6 Procedures Date of Service Date of Service: 10/01/24 Progress Note: A&P Assessment and plan (1) Small bowel obstruction: Status: Acute (2) Ileus: Status: Acute Plan Advanced to clear to full liquids as tolerated. Encourage ambulation, incentive spirometry, insulin altered to accommodate diet. Time Spent With Patient Time: Total time managing care of this patient today ____ minutes. Quality Stroke Does the patient have a stroke diagnosis?: No VTE Prior VTE?: No VTE Risk Level:: Surgical - low VTE Device Contraindication: N/A - Device Ordered VTE Drug Contraindication: N/A - Med Ordered
[2024-10-01 15:09] VITALS: BP 169/83; PULSE 82; RESP 16; TEMP 36.8; O2SAT 96
[2024-10-01 16:23] LABS: Glucose, Whole Blood 139 mg/dL (60-115)
[2024-10-01] MEDS: Lurasidone HCl 20 MG TABLET 60 MG PO (17:12)
[2024-10-01 19:07] VITALS: BP 156/80; PULSE 95; RESP 16; TEMP 36.6; O2SAT 97
[2024-10-01 20:17] LABS: Glucose, Whole Blood 204 mg/dL (60-115)
[2024-10-01] MEDS: cloZAPine 100 MG TABLET PO (20:30)
[2024-10-02] MEDS: Dextrose 5 % and 0.45 % NaCl 1,000 ML 100 ML IVCONT (00:18)
[2024-10-02 02:53] VITALS: BP 123/71; PULSE 87; RESP 18; TEMP 36.2; O2SAT 98
--- NOTE | 2024-10-02 03:33 | P.PNGS_ITS ---
Subjective Subjective Date of Service: 10/02/24 Interval history: Patient was seen very early this morning on rounds. He has abdominal symptoms have markedly improved. He is tolerating his liquids. He is passing loose stool. Physical Exam 2 Vital Signs: Vital Signs: Last Vital Signs Temp 97.2 F 10/02/24 02:53 Pulse 87 10/02/24 02:53 Resp 18 10/02/24 02:53 BP 123/71 10/02/24 02:53 Pulse Ox 98 10/02/24 02:53 O2 Del Method Room Air 10/02/24 02:53 O2 Flow Rate 3 10/01/24 19:07 BMI result Body Mass Index 35.7 GI: Other: Abdomen although distended is much less so and nontender. No evidence of any guarding, rebound, or rigidity. Objective Data Active Medications Albuterol Sulfate (Albuterol Sulfate 90 Mcg 8 Gm Inhaler) 2 puff INHALE Q6H PRN PRN Reason: Shortness Of Breath Or Wheezing Clozapine (Clozapine 25 Mg Tablet) 75 mg PO DAILY [facility] Last Admin: 10/01/24 08:26 Dose: 75 mg Documented By: CATE Clozapine (Clozapine 100 Mg Tablet) 100 mg PO DAILY@2000 [facility] Last Admin: 10/01/24 20:30 Dose: 100 mg Documented By: NESSA Enoxaparin Sodium (Enoxaparin Sodium 40 Mg/0.4 Ml Syringe) 40 mg SUBCUT DAILY [facility] Last Admin: 10/01/24 08:27 Dose: 40 mg Documented By: CATE Dextrose/Sodium Chloride (D51/2ns) 1,000 mls @ 100 mls/hr IVCONT .Q10H [facility] Last Admin: 10/02/24 00:18 Dose: 100 mls/hr Documented By: NESSA Insulin Human Lispro (Insulin Lispro 100 Unit/Ml 3 Ml Vial) 0 unit SUBCUT QIDACHS [facility]; Protocol Last Admin: 10/01/24 20:30 Dose: 4 unit Documented By: NESSA Lurasidone HCl (Lurasidone Hcl 20 Mg Tablet) 60 mg PO DAILY@1800 [facility] Last Admin: 10/01/24 17:12 Dose: 60 mg Documented By: CATE Metoprolol Tartrate (Metoprolol Tartrate 50 Mg Tablet) 50 mg PO BID [facility]; Protocol Last Admin: 10/01/24 20:29 Dose: 50 mg Documented By: NESSA Morphine Sulfate (Morphine Sulfate 2 Mg/Ml Cartridge) 4 mg IVPUSH Q4H PRN; Protocol PRN Reason: Pain, Severe (Pain Scale 7-10) Last Admin: 09/30/24 20:46 Dose: 4 mg Documented By: GREGOR Nicotine Polacrilex (Nicotine Polacrilex Lozenge 4 Mg Lozenge) 4 mg BUCCAL Q2H PRN PRN Reason: Smoking Cessation Nitroglycerin (Nitroglycerin 0.4 Mg Tab.Subl) 0.4 mg SUBLINGUAL Q5M PRN PRN Reason: Chest Pain Ondansetron HCl (Ondansetron Hcl 4 Mg/2 Ml Vial) 4 mg IVPUSH Q8H PRN PRN Reason: Nausea and Vomiting Pantoprazole Sodium (Pantoprazole Sodium 40 Mg/10 Ml Vial) 40 mg IVPUSH DAILY [facility] Last Admin: 10/01/24 08:26 Dose: 40 mg Documented By: CATE Sodium Chloride (0.9 % Sodium Chloride Flush 3 Ml Syringe) 3 ml IVFLUSH QSHIFT [facility] Last Admin: 10/01/24 20:34 Dose: 3 ml Documented By: NESSA Labs 09/29/24 06:54 10/01/24 05:50 Labs: Laboratory Results - last 24 hr 10/01/24 10/01/24 10/01/24 03:54 05:50 10:42 Anion Gap 11 L Estim Creat Clear Calc 83.3 Estimated GFR > 60 POC Glucose 187 H 176 H Random Glucose 175 H Calcium 8.6 10/01/24 10/01/24 16:16 20:04 Anion Gap Estim Creat Clear Calc Estimated GFR POC Glucose 139 H 204 H Random Glucose Calcium Procedures Date of Service Date of Service: 10/02/24 Progress Note: A&P Assessment and plan (1) Small bowel obstruction: Status: Acute Plan Current plan is to advance diet to solids, out of bed, incentive spirometry. Time Spent With Patient Time: Total time managing care of this patient today ____ minutes. Quality Stroke Does the patient have a stroke diagnosis?: No VTE Prior VTE?: No VTE Risk Level:: Surgical - low VTE Device Contraindication: N/A - Device Ordered VTE Drug Contraindication: N/A - Med Ordered
[2024-10-02 06:15] LABS: Hematocrit 32.5 % (42.0-52.0); Hemoglobin 10.2 g/dl (14.0-18.0); Mean Corpuscular HGB Conc 31.4 g/dl (31.0-36.0); Mean Corpuscular Hemoglobin 27.2 pg (27.0-33.0); Mean Corpuscular Volume 86.7 fL (80.0-98.0); Mean Platelet Volume 12.1 fL (9.4-12.4); Platelet Count 131 X10*3/uL (160-400); Red Blood Count 3.75 X10*6/uL (4.60-5.80); Red Cell Distribution Width 15.2 % (11.0-16.0); White Blood Count 5.2 X10*3/uL (4.8-10.8)
[2024-10-02 06:36] LABS: Anion Gap 11 (12-20); Blood Urea Nitrogen 9 mg/dL (9-16); Calcium 8.5 mg/dL (8.4-10.2); Carbon Dioxide 26 mmol/L (22-29); Chloride 111 mmol/L (96-108); Creatinine Clr Calc Pharmacy 92.1; Estimated Glomerular Filt Rate > 60; Glucose Random 153 mg/dL (60-115); Potassium 3.7 mmol/L (3.3-5.1); Sodium 144 mmol/L (135-145)
[2024-10-02 07:42] VITALS: BP 140/72; PULSE 77; RESP 18; TEMP 36.6; O2SAT 92
[2024-10-02 07:45] LABS: Glucose, Whole Blood 141 mg/dL (60-115)
[2024-10-02] MEDS: Pantoprazole Sodium 40 MG/10 ML VIAL IVPUSH (08:14)
[2024-10-02] MEDS: Enoxaparin Sodium 40 MG/0.4 ML SYRINGE SUBCUT (08:14)
[2024-10-02] MEDS: Metoprolol Tartrate 50 MG TABLET PO ×2 (08:15→20:12)
[2024-10-02] MEDS: cloZAPine 25 MG TABLET 75 MG PO (08:15)
[2024-10-02] MEDS: 0.9 % Sodium Chloride Flush 3 ML SYRINGE IVFLUSH ×3 (08:15→20:31)
[2024-10-02 11:16] LABS: Glucose, Whole Blood 243 mg/dL (60-115)
[2024-10-02] MEDS: Insulin Lispro 100 UNIT/ML 3 ML VIAL SUBCUT ×2 (12:23→20:31)
[2024-10-02 16:00] VITALS: BP 145/81; PULSE 76; RESP 20; TEMP 36.2; O2SAT 98
--- NOTE | 2024-10-02 16:07 | HO.PM.IMPN ---
Subjective Subjective Date of Service: 10/02/24 Interval History: Seen and examined this morning follow-up for partial small-bowel obstruction No overnight events Reports having liquid bowel movements, improvement in abdominal pain and distention Review of Systems Review of Systems: Yes all other systems are reviewed and are negative Constitutional Constitutional: Denies chills and Denies fever(s) Cardiovascular Cardiovascular: Denies chest pain and Denies dyspnea Respiratory Respiratory: Denies dyspnea Gastrointestinal Gastrointestinal: Denies nausea and Denies vomiting Physical Exam Vital Signs: Vital Signs: Last Vital Signs Temp 98 F 10/02/24 07:42 Pulse 77 10/02/24 07:42 Resp 18 10/02/24 07:42 BP 140/72 H 10/02/24 07:42 Pulse Ox 92 10/02/24 07:42 O2 Del Method Nasal Cannula 10/02/24 07:42 O2 Flow Rate 3 10/02/24 07:42 BMI result Body Mass Index 35.7 Const: General: cooperative, alert and awake Nutritional Appearance: obese Orientation/consciousness: patient oriented x3 Resp: Effort & Inspection: normal respiratory effort, able to speak in complete sentences, no respiratory distress and no use of accessory muscles Cardio: Rate: regular rate GI: Other: distended; no guarding Palpation (GI): Soft to palpation and nontender Neuro: General: patient oriented x3 and moves all extremities Objective Data Active Medications Albuterol Sulfate (Albuterol Sulfate 90 Mcg 8 Gm Inhaler) 2 puff INHALE Q6H PRN PRN Reason: Shortness Of Breath Or Wheezing Clozapine (Clozapine 25 Mg Tablet) 75 mg PO DAILY [facility] Last Admin: 10/02/24 08:15 Dose: 75 mg Documented By: ALLY Clozapine (Clozapine 100 Mg Tablet) 100 mg PO DAILY@1999 [facility] Last Admin: 10/01/24 20:30 Dose: 100 mg Documented By: NESSA Enoxaparin Sodium (Enoxaparin Sodium 40 Mg/0.4 Ml Syringe) 40 mg SUBCUT DAILY [facility] Last Admin: 10/02/24 08:14 Dose: 40 mg Documented By: ALLY Insulin Human Lispro (Insulin Lispro 100 Unit/Ml 3 Ml Vial) 0 unit SUBCUT QIDACHS [facility]; Protocol Last Admin: 10/02/24 12:23 Dose: 4 unit Documented By: ALLY Lurasidone HCl (Lurasidone Hcl 20 Mg Tablet) 60 mg PO DAILY@1800 [facility] Last Admin: 10/01/24 17:12 Dose: 60 mg Documented By: CATE Metoprolol Tartrate (Metoprolol Tartrate 50 Mg Tablet) 50 mg PO BID [facility]; Protocol Last Admin: 10/02/24 08:15 Dose: 50 mg Documented By: ALLY Morphine Sulfate (Morphine Sulfate 2 Mg/Ml Cartridge) 4 mg IVPUSH Q4H PRN; Protocol PRN Reason: Pain, Severe (Pain Scale 7-10) Last Admin: 09/30/24 20:46 Dose: 4 mg Documented By: GREGOR Nicotine Polacrilex (Nicotine Polacrilex Lozenge 4 Mg Lozenge) 4 mg BUCCAL Q2H PRN PRN Reason: Smoking Cessation Nitroglycerin (Nitroglycerin 0.4 Mg Tab.Subl) 0.4 mg SUBLINGUAL Q5M PRN PRN Reason: Chest Pain Ondansetron HCl (Ondansetron Hcl 4 Mg/2 Ml Vial) 4 mg IVPUSH Q8H PRN PRN Reason: Nausea and Vomiting Sodium Chloride (0.9 % Sodium Chloride Flush 3 Ml Syringe) [facility] Last Admin: 10/02/24 08:15 Dose: 3 ml Documented By: ALLY Labs 10/02/24 05:27 10/02/24 05:27 Labs: Laboratory Results - last 24 hr 10/01/24 10/01/24 10/02/24 16:16 20:04 05:27 MCV 86.7 MCH 27.2 MCHC 31.4 RDW 15.2 Plt Count 131 L D MPV 12.1 Absolute Nucleated RBC 0.000 Nucleated RBC % (auto) 0.0 Anion Gap 11 L Estim Creat Clear Calc 92.1 Estimated GFR > 60 POC Glucose 139 H 204 H Random Glucose 153 H Calcium 8.5 10/02/24 10/02/24 07:41 11:12 MCV MCH MCHC RDW Plt Count MPV Absolute Nucleated RBC Nucleated RBC % (auto) Anion Gap Estim Creat Clear Calc Estimated GFR POC Glucose 141 H 243 H Random Glucose Calcium Assessment and Plan (1) Small bowel obstruction: Status: Acute Plan 59-year-old male with a PMH significant for HTN, thq-[id number]-sjotfmnjo type 2 diabetes, HLD, HOCM, COPD, JUDY on 2L NC at night, chronic constipation, schizoaffective disorder and resident of a [facility] who was admitted to the hospital under general surgery services for small bowel obstruction Hospitalist consult for medical management and preop clearance. Small-bowel obstruction KUB showed numerous loops of dilated stat small bowel within the central abdomen with air-fluid levels consistent with mechanical SBO, contrast progress into the colon and rectum suggesting PSBO Slowly improving diet advanced to regular plan as per General surgery Acute HyperNa Resolved. Stop IV fluid JUHI resolved Mgi-tpoifzi-gluubysde type 2 diabetes not on baseline medication stable bs follow poc + sliding scale HLD Hold aspirin and statin due to possible surgical procedure HOCM Lasix has been on hold, consider restarting in a.m. Continue metoprolol COPD Not in acute exacerbation, Continue home inhalers Schizoaffective disorder Continue clozapine, lurasidone - avoid holding clozapine if possible Class 2 obesity recommend low-calorie diet DVT prophylaxis Lovenox Quality Stroke Does the patient have a stroke diagnosis?: No VTE Prior VTE?: No VTE Risk Level:: Surgical - low VTE Device Contraindication: N/A - Device Ordered VTE Drug Contraindication: N/A - Med Ordered
[2024-10-02 16:13] LABS: Glucose, Whole Blood 147 mg/dL (60-115)
[2024-10-02] MEDS: Lurasidone HCl 20 MG TABLET 60 MG PO (16:49)
[2024-10-02 19:38] VITALS: BP 139/90; PULSE 79; RESP 18; TEMP 36.2; O2SAT 94
[2024-10-02] MEDS: cloZAPine 100 MG TABLET PO (20:12)
[2024-10-02 20:22] LABS: Glucose, Whole Blood 169 mg/dL (60-115)
[2024-10-02] MEDS: traZODone HCL 50 MG TABLET PO (20:31)
[2024-10-03 03:36] VITALS: BP 151/82; PULSE 75; RESP 17; TEMP 36.1; O2SAT 99
[2024-10-03 07:34] VITALS: BP 163/79; PULSE 82; RESP 16; TEMP 36.3; O2SAT 98
[2024-10-03 07:47] LABS: Glucose, Whole Blood 162 mg/dL (60-115)
[2024-10-03] MEDS: Insulin Lispro 100 UNIT/ML 3 ML VIAL SUBCUT ×2 (08:05→12:10)
[2024-10-03] MEDS: Metoprolol Tartrate 50 MG TABLET PO (08:06)
[2024-10-03] MEDS: Enoxaparin Sodium 40 MG/0.4 ML SYRINGE SUBCUT (08:06)
[2024-10-03] MEDS: cloZAPine 25 MG TABLET 75 MG PO (08:06)
[2024-10-03] MEDS: 0.9 % Sodium Chloride Flush 3 ML SYRINGE IVFLUSH (08:08)
--- NOTE | 2024-10-03 11:12 | PM.PNGS ---
Subjective Subjective Date of Service: 10/03/24 Interval history: Feels improved. Tolerating solid diet without nausea or vomiting. Only c/o is that he has not had a solid BM which worries him. Has had 3-4 loose stools per day. Physical Exam Vital Signs: Vital Signs: Last Vital Signs Temp 97.4 F 10/03/24 07:34 Pulse 82 10/03/24 07:34 Resp 16 10/03/24 07:34 BP 163/79 H 10/03/24 07:34 Pulse Ox 98 10/03/24 07:34 O2 Del Method Nasal Cannula 10/03/24 07:34 O2 Flow Rate 3 10/03/24 07:34 BMI result Body Mass Index 35.7 Const: General: comfortable, no acute distress and alert Resp: Effort & Inspection: normal respiratory effort GI: Inspection: Yes distended (soft, improved ) Palpation (GI): Soft to palpation, nontender and no guarding Skin: General skin exam: no rashes or lesions noted Objective Data Active Medications Albuterol Sulfate (Albuterol Sulfate 90 Mcg 8 Gm Inhaler) 2 puff INHALE Q6H PRN PRN Reason: Shortness Of Breath Or Wheezing Clozapine (Clozapine 25 Mg Tablet) 75 mg PO DAILY [facility] Last Admin: 10/03/24 08:06 Dose: 75 mg Documented By: MARCO A Clozapine (Clozapine 100 Mg Tablet) 100 mg PO DAILY@2000 [facility] Last Admin: 10/02/24 20:12 Dose: 100 mg Documented By: NESSA Enoxaparin Sodium (Enoxaparin Sodium 40 Mg/0.4 Ml Syringe) 40 mg SUBCUT DAILY [facility] Last Admin: 10/03/24 08:06 Dose: 40 mg Documented By: MARCO A Insulin Human Lispro (Insulin Lispro 100 Unit/Ml 3 Ml Vial) 0 unit SUBCUT QIDACHS [facility]; Protocol Last Admin: 10/03/24 08:05 Dose: 2 unit Documented By: MARCO A Lurasidone HCl (Lurasidone Hcl 20 Mg Tablet) 60 mg PO DAILY@1800 [facility] Last Admin: 10/02/24 16:49 Dose: 60 mg Documented By: ALLY Metoprolol Tartrate (Metoprolol Tartrate 50 Mg Tablet) 50 mg PO BID [facility]; Protocol Last Admin: 10/03/24 08:06 Dose: 50 mg Documented By: MARCO A Morphine Sulfate (Morphine Sulfate 2 Mg/Ml Cartridge) 4 mg IVPUSH Q4H PRN; Protocol PRN Reason: Pain, Severe (Pain Scale 7-10) Last Admin: 09/30/24 20:46 Dose: 4 mg Documented By: GREGOR Nicotine Polacrilex (Nicotine Polacrilex Lozenge 4 Mg Lozenge) 4 mg BUCCAL Q2H PRN PRN Reason: Smoking Cessation Nitroglycerin (Nitroglycerin 0.4 Mg Tab.Subl) 0.4 mg SUBLINGUAL Q5M PRN PRN Reason: Chest Pain Ondansetron HCl (Ondansetron Hcl 4 Mg/2 Ml Vial) 4 mg IVPUSH Q8H PRN PRN Reason: Nausea and Vomiting Sodium Chloride (0.9 % Sodium Chloride Flush 3 Ml Syringe) [facility] Last Admin: 10/03/24 08:08 Dose: 3 ml Documented By: MARCO A Trazodone HCl (Trazodone Hcl 50 Mg Tablet) 50 mg PO BEDTIME PRN PRN Reason: Insomnia Last Admin: 10/02/24 20:31 Dose: 50 mg Documented By: NESSA Labs 10/02/24 05:27 10/02/24 05:27 Labs: Laboratory Results - last 24 hr 10/02/24 10/02/24 10/02/24 11:12 16:09 19:44 POC Glucose 243 H 147 H 169 H 10/03/24 07:37 POC Glucose 162 H Procedures Date of Service Date of Service: 10/03/24 Progress Note: A&P Assessment and plan (1) Ileus: Status: Acute Plan Ileus vs SBO that has since resolved. He is tolerating solid diet without nausea or vomiting, abd pain. He has good GI function. Plan dc to shelter later today or tomorrow. Time Spent With Patient Time: Total time managing care of this patient today ____ minutes. Quality Stroke Does the patient have a stroke diagnosis?: No VTE Prior VTE?: No VTE Risk Level:: Surgical - low VTE Device Contraindication: N/A - Device Ordered VTE Drug Contraindication: N/A - Med Ordered
[2024-10-03 12:02] LABS: Glucose, Whole Blood 230 mg/dL (60-115)
--- NOTE | 2024-10-03 12:12 | P.DS_ITS ---
DS: Providers Provider Date of Service: 10/03/24 Date of admission: 09/29/24 01:43 Date of discharge: 10/03/24 Primary care physician: Regan Hogue MD Attending physician on admission: Jolynn Martínez Consults: 09/29/24 01:51 Consult to Hospitalist Routine Comment: Consulting Provider: [facility] Hospitalists Reason For Exam: med management and preop clearance Attending physician on discharge: Anoop Soto DS: Diagnosis Discharge Diagnosis (1) Ileus: Status: Acute DS: Summary Hospital Course Hospital Course: HPI AT ADMISSION: Yessica Carvalho is a 58 year old man with PMH significant for type 2 diabetes mellitus, essential hypertension, HOCM, hyperlipidemia, COPD, obstructive sleep apnea, constipation and schizoaffective disorder who was brought to the ED from his snf with complaints of abdominal pain distention little nausea and diarrhea. For the last couple of days he says he was having diarrhea not feeling well. He says his abdomen is gotten more distended and he was nauseated. He says this happened several times every few months. He was here earlier this year with an episode of abdominal pain distention and CT scan showing findings consistent with small-bowel obstruction and also findings of pneumatosis. Patient hemodynamically looked okay and his abdomen was relatively benign at that time and he did well with conservative care. Patient comes in today and his abdomen is very distended and the CT scan showed findings consistent with small-bowel obstruction with several transition zones questioning closed loop obstruction. Patient's white count is normal patient's lactic acid is normal. NG tube decompression was carried out and a 1000 cc of yellowish fluid was removed. Patient is feeling remarkably better. He also says that he has not paid but he does not feel like he really needs to. He has not Peed very much today. He does have issues with BPH and sees Dr. Cox. HOSPITAL COURSE: He was admitted to the surgical service for further evaluation and treatment. CT scan showing obstruction question closed loop. Patient's exam was overall benign and not really worrisome. NGT was inserted for decompression, IVF continued. CT scan with p.o. contrast ordered. Hospitalist consult was obtained for management of his medical comorbidities and medication reconciliat ion. He had an uneventful hospital course. F/u films showed contrast in the colon. He began to have bowel movements. His symptoms improved. His NGT was removed and his diet was slowly advanced. On the day of discharge, he was tolerating a solid diet without nausea or vomiting or abd pain, he had good GI function. He was ambulating. His abdomen was benign and soft and nontender. He was hemodynamic ally stable. He was discharged back to his snf on 10/03/24 in stable condition. He is to follow up with his PCP upon discharge. Status at Discharge Functional status at discharge: independent ambulation Overall status at discharge: patient is progressing back to baseline Time Attestation Discharge Coordination Time (in mins): 35 Quality: Safe Use of Opioids Does Pt have an Active Cancer Diagnosis on the Problem List?: No Quality: Stroke Does the patient have a stroke diagnosis?: No Physical Exam Vital Signs: Vital Signs: Last Vital Signs Temp 97.4 F 10/03/24 07:34 Pulse 82 10/03/24 07:34 Resp 16 10/03/24 07:34 BP 163/79 H 10/03/24 07:34 Pulse Ox 98 10/03/24 07:34 O2 Del Method Nasal Cannula 10/03/24 07:34 O2 Flow Rate 3 10/03/24 07:34 BMI result Body Mass Index 35.7 Const: General: comfortable, no acute distress and alert Orientation/consciousness: patient oriented x3 GI: Inspection: Yes distended (mild, softly, improved ) Palpation (GI): Soft to palpation and no guarding Skin: General skin exam: no rashes or lesions noted Neuro: General: patient oriented x3 and moves all extremities DS: Data Data Completed and Pending Completed studies during hospitalization [Text1]: Procedures Assistance with Respiratory Ventilation, Less than 24 Consecutive Hours, Continuous Positive Airway Pressure (05/27/24) Drainage of Spinal Canal, Percutaneous Approach, Diagnostic (01/15/24) Fluoroscopy of Spinal Cord (01/15/24) Introduction of Remdesivir Anti-infective into Peripheral Vein, Percutaneous Approach, [employer] (09/25/21) Discharge Plan Discharge Anticipated Discharge Date/Time: 10/03/24 14:01 Patient Disposition: Home, Self-Care Discharge Diagnosis: ileus Referrals: Regan Hogue MD [Primary Care Provider] - 1 Week Discharge Medications: Continued cholecalciferol (vitamin D3) 25 mcg (1,000 unit) tablet 25 mcg PO DAILY@0800 30 Days Qty: 30 0RF albuterol sulfate 90 mcg/actuation HFA aerosol inhaler 2 puff inhalation Q6H PRN (Reason: Shortness Of Breath Or Wheezing) 30 Days Qty: 1 0RF sennosides-docusate sodium [Senna Plus] 8.6-50 mg tablet 2 tab PO DAILY 30 Days Qty: 60 0RF omeprazole 20 mg capsule,delayed release(DR/EC) 20 mg PO BID@0630,1630 30 Days Qty: 60 0RF clozapine 25 mg Tablet 75 mg PO DAILY 30 Days Qty: 90 0RF trazodone 50 mg Tablet 50 mg PO BEDTIME 30 Days Qty: 30 0RF polyethylene glycol 3350 17 gram Powder In Packet 17 g PO DAILY 30 Days Qty: 30 0RF lurasidone 60 mg tablet 60 mg PO BEDTIME@1800 acetaminophen [Tylenol] 325 mg Tablet 650 mg PO Q6H PRN (Reason: Pain (Scale Score 1-3)) nitroglycerin 0.4 mg Tablet, Sublingual 0.4 mg SUBLINGUAL Q5M PRN (Reason: Chest Pain) Rx Instructions: do not exceed 3 doses per episode alum-mag hydroxide-simeth 200-200-20 mg/5 mL Suspension 10 ml PO TID PRN (Reason: Indigestion) Rx Instructions: administer between meals and at bedtime nicotine (polacrilex) 4 mg Lozenge 4 mg buccal Q2H PRN (Reason: Smoking Cessation) furosemide [Lasix] 40 mg tablet 40 mg PO DAILY 90 Days Qty: 90 0RF metoprolol succinate 100 mg tablet extended release 24 hr 100 mg PO DAILY 90 Days Qty: 90 0RF Protocol: Hold for SBP/HR < HOLD for SBP < : 90 HOLD for HR < : 60 docusate sodium 100 mg capsule 100 mg PO BID@0800,1999 30 Days Qty: 60 0RF clozapine 100 mg tablet 100 mg PO DAILY@1999 testosterone 1 % (50 mg/5 gram) gel in packet 1 packet transdermal DAILY 30 Days Qty: 150 5RF atorvastatin 20 mg tablet 20 mg PO DAILY@1999 90 Days Qty: 90 1RF aspirin 81 mg tablet,delayed release (DR/EC) 81 mg PO DAILY@0800 90 Days Qty: 90 3RF Discharge Orders: Discharge Order (Routine); Ordered 10/03/24 Ordered By: Nidia Palencia Diet: Advance to usual diet Activity on Discharge: As tolerated Stand Alone Forms: Patient Portal Discharge page Print Language: Telugu Activity Restrictions/Additional Instructions: Follow up with your PCP. Call Your Doctor If: ? ? -Your temperature exceeds 101.5? F? ? ? -You experience excessive pain or swelling ? ? -You have an unexpected reaction to medication ? ? -You experience continued vomiting/nausea Care Plan Goals: Return to baseline health and resume normal activities. Health Concerns: Ileus vs SBO Plan of Treatment: Supportive with NGT, bowel rest Assessment: Resolved Patient Instructions: Bowel Obstruction (DC) Discharge Date/Time: 10/03/24 15:12
--- NOTE | 2024-10-03 14:54 | MHC.CM.PN ---
[facility] [place] [facility] by [facility] pt is indepedent
== END 2024-10-03 15:12 | disposition home or self-care (01) | DRG 389 ==
LOC: HO.ED 22:05 → HO.EDOVER 09-29 01:56 → HO.S3 09-29 05:02
PROVIDERS: Family Medicine; Hospitalist; Physician Assistant; Surgery; Admitting Provider Surgery; Emergency Provider Emergency Medicine; PCP Internal Medicine; Visit Provider Surgery
DX: K56.600 Partial intestinal obstruction, unspecified as to cause (principal); E87.0 Hyperosmolality and hypernatremia; I50.22 Chronic systolic (congestive) heart failure; I42.1 Obstructive hypertrophic cardiomyopathy; N17.9 Acute kidney failure, unspecified; F17.210 Nicotine dependence, cigarettes, uncomplicated; I11.0 Hypertensive heart disease with heart failure; J44.9 Chronic obstructive pulmonary disease, unspecified; K59.09 Other constipation; K56.7 Ileus, unspecified; F25.9 Schizoaffective disorder, unspecified; G47.33 Obstructive sleep apnea (adult) (pediatric); E66.812 Obesity, class 2; Z68.35 Body mass index [BMI] 35.0-35.9, adult; Z71.3 Dietary counseling and surveillance; N40.0 Benign prostatic hyperplasia without lower urinary tract symptoms; I25.10 Atherosclerotic heart disease of native coronary artery without angina pectoris; Z20.822 Contact with and (suspected) exposure to COVID-19; Z71.6 Tobacco abuse counseling; Z79.82 Long term (current) use of aspirin; Z79.899 Other long term (current) 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
CPT/HCPCS: 0241U; 36415; 71045; 74018; 74176; 80048; 80051; 80076; 81001; 82565; 82947; 83605; 83690; 84484; 84520; 85025; 85027; 93005; 99285; J1650; J2270; J2405; J2470; J7120

== ENCOUNTER 2024-09-29 01:43 | Outpatient (BNV) | payer OTHER, SELFPAY | END 2024-09-29 06:00 | PROVIDERS: Admitting Provider Surgery; Emergency Provider Emergency Medicine; Visit Provider Radiology Diagnostic Radiology | DX: K56.600 Partial intestinal obstruction, unspecified as to cause (principal) | CPT/HCPCS: 74176 ==

== ENCOUNTER 2024-09-29 01:43 | Outpatient (BNV) | payer OTHER, SELFPAY | END 2024-09-30 06:00 | PROVIDERS: Admitting Provider Surgery; Emergency Provider Emergency Medicine; PCP Internal Medicine; Visit Provider Radiology Diagnostic Radiology | DX: K56.609 Unspecified intestinal obstruction, unspecified as to partial versus complete obstruction (principal) | CPT/HCPCS: 74018 ==

== ENCOUNTER → 2024-09-29 01:43 | Outpatient (BNV) | payer OTHER, SELFPAY | PROVIDERS: Admitting Provider Surgery; Emergency Provider Emergency Medicine; Visit Provider Surgery | DX: K56.7 Ileus, unspecified (principal) | CPT/HCPCS: 99024; 99223; 99232; 99239; 99499 ==

== ENCOUNTER → 2024-09-29 01:43 | Outpatient (BNV) | payer OTHER, SELFPAY | PROVIDERS: Admitting Provider Surgery; Emergency Provider Emergency Medicine; PCP Internal Medicine; Visit Provider Student in an Organized Health Care Education/Training Program | DX: K56.609 Unspecified intestinal obstruction, unspecified as to partial versus complete obstruction (principal); E11.9 Type 2 diabetes mellitus without complications | CPT/HCPCS: 99222; 99232 ==

== ENCOUNTER 2024-10-09 10:37 | Outpatient (AMB) | payer MEDICARE, MEDICAID, SELFPAY ==
[2024-10-09 10:38] VITALS: BP 124/80; PULSE 103; O2SAT 98; BMI 36.5
--- NOTE | 2024-10-09 10:38 | A.OFFPC_ITS ---
Vital Signs 10/09/24 10:38 Height 5 ft 9 in Weight 247 lb 2 oz BMI 36.5 BP 124/80 Blood Pressure Location Lt brachial Position Sitting Pulse 103 H Pulse Source Pulse Oximeter Pulse Oximetry (%) 98 Oxygen Delivery Method Room Air Intake Visit Reasons: TCM [facility] Abd pain 10/03 Manager Marketing Communication Required: No Accompanied by: Self / Same As Patient Allergies lithium [[place]] Allergy (Severe, Verified 10/09/24 10:51) Toxicity thiothixene Allergy (Severe, Verified 10/09/24 10:51) Swelling amoxicillin Allergy (Mild, Verified 10/09/24 10:51) Nose Bleed benztropine Allergy (Unknown, Verified 10/09/24 10:51) benztropine mesylate- unknown gabapentin [From NEURONTIN] Allergy (Unknown, Verified 10/09/24 10:51) Unknown fluphenazine [From Prolixin] Allergy (Verified 10/09/24 10:51) Unknown barium sulfate [BARIUM SULFATE] Adverse Reaction (Intermediate, Verified 10/09/24 10:51) Nausea and Vomiting haloperidol Adverse Reaction (Intermediate, Verified 10/09/24 10:51) Muscle tension in legs diphenhydramine [From Benadryl] Adverse Reaction (Unknown, Verified 10/09/24 10:51) urinary retention Medication List - Last Reconciled 10/09/24 by SAMARA Aceves acetaminophen (Tylenol) 650 mg PO Q6H PRN albuterol sulfate 90 mcg/actuation 2 puffs inhalation Q6H PRN 30 days alum-mag hydroxide-simeth 200-200-20 mg/5 mL 10 mL PO TID PRN aspirin 81 mg PO DAILY@0800 90 days atorvastatin 20 mg PO DAILY@1999 90 days cholecalciferol (vitamin D3) 25 mcg PO DAILY@0800 30 days clozapine 75 mg (3 x 25 mg) PO DAILY 30 days clozapine 100 mg PO DAILY@1999 furosemide (Lasix) 40 mg PO DAILY 90 days lurasidone 60 mg PO BEDTIME@1800 metoprolol succinate ER 100 mg See Protocol PO DAILY 90 days nicotine (polacrilex) 4 mg buccal Q2H PRN nitroglycerin 0.4 mg sublingual Q5M PRN omeprazole 20 mg PO BID@0630,1630 30 days polyethylene glycol 3350 17 grams PO DAILY 30 days sennosides-docusate sodium 8.6-50 mg (Senna Plus) 2 tabs PO DAILY 30 days testosterone 1 packet transdermal DAILY 30 days trazodone 50 mg PO BEDTIME 30 days Tobacco use date assessed: 10/09/24 Dental Screening Dental Screen Date: 10/09/24 Did you have a dental visit in the last 12 months?: Yes Did you have a dental problem in the last 6 months where you did not have access to dental care?: No Was dental information given to patient?: Patient has dentist HPI TCM [facility] Abd pain 10/03 HPI Details The patient is a 59-year-old male with significant past medical history of type 2 diabetes, essential hypertension, HOCM,, hyperlipidemia, COPD, obstructive sleep apnea, constipation and schizoaffective disorder The patient is presenting today for a post hospital visit, accompanied with skilled nursing staff member The patient went to the emergency room on 09/28/24 from his skilled nursing with complaints of abdominal pain, distention, nausea and diarrhea for a couple of days CT scan was done showing evidence of small bowel obstruction and also findings of pneumatosis. The patient was admitted on the surgical service. An NG tube was placed decompressed stomach-1000ml of yellowish drainage removed A CT of abdomen with contrast was unable to be performed due to the patient kidney function Oral contrast was given in follow-up films showed contrast in the colon the patient also started having bowel movement NG tube was removed and his diet was slowly advanced, patient was ambulating, his abdomen was soft and nontender and deemed benign Two the patient hospital stay his blood sugar was in the 200s and he was placed on a insulin sliding scale The patient was discharged from the hospital on 10/03/24 in stable condition, per notes On reviewing of his medication the patient was not discharged on any diabetic medications Further review of the patient's chart revealed that he was on metformin and Tradjenta that were both discontinued due to acute kidney injury He was placed on Admelog Q AC and HS per sliding scale by Dr. Hogue on 07/08/24 However, the patient has not been taking this medication The patient's skilled nursing staff member agreed that she has never seen the patient taking any insulin. The skilled nursing staff member verbalized that the patient has nurse that comes in twice a day, in the morning and at HS, but not before meals An A1C done in office today was 9.1 The patient was discharged on Senna plus 2 tabs daily, miralax 17g daily, and colace 100 BID. However, the skilled nursing staff reported that they called and got his colace stopped because he is already getting colace in the senna plus and the patient has been refusing the medication. The staff also reports that they changed his miralax to 17g to PRN due to refusal The patient complains of urinary retention, reports that he stopped taking his flomax that was prescribed by urology (Dr. Cox) The patient and the skilled nursing staff was encouraged to follow up with Dr. Cox. The patient went to use the bathroom during visit and stated that he urinated a good amount. The skilled nursing staff reports that they will make an appt when they get back to the home. The patient denies chest pain, reports his usual SOB with exertion-He using oxygen via N/C mostly at night but sometimes throughout the day with exertion He denies dizziness, heart palpitation or syncopal episodes TCM TCM Information Date of Discharge 10/03/24 Discharged From [facility] Interactive Contact Date (Reference documentation from this date) 10/06/24 [facility] Medical History JUDY (obstructive sleep apnea) BPH (benign prostatic hyperplasia) Diabetes mellitus Essential hypertension HOCM (hypertrophic obstructive cardiomyopathy) Coronary artery disease Osteoarthritis GERD without esophagitis Vitamin D deficiency Schizoaffective disorder Congestive heart failure COVID-19 Thought disorder Nocturnal hypoxemia Constipation COPD (chronic obstructive pulmonary disease) Smoker Diabetes mellitus Obesity (BMI 30-39.9) Pure hypercholesterolemia Prolonged QT interval Aggression Hypertension CHF (congestive heart failure) Cardiac arrhythmia Myocardial infarction Surgical History History of ankle surgery History of intestinal surgery History of transurethral resection of prostate Family History Father Medical history unknown Mother Medical history unknown Sister Alive and well Social History Household Members: Other Household Members Other:: Roommate Housing: Assisted Living Facility Housing Other:: [facility] Do you presently have visiting nurse or other home services: No Unable to assess alcohol history related to: Unknown Alcohol intake: never Comment: Sitter in room Patient Tobacco Use Status: Current everyday Tobacco user Tobacco use type: Cigarette Cigarette Packs Per Day: 0.5 Cigarettes Per Day: 10 Years Smoked: Many e-Cigarette/Vaping Use: Currently Using Second Hand Smoke Exposure: Yes Substance Use Type: Unknown Advance Directives Date on File: 01/14/24 service: No Current occupational status: disabled Sexual orientation: Straight/Heterosexual Cognitive needs: Yes Hearing needs: No Vision needs: Yes Questionnaire PHQ-9 Over the last 2 weeks, how often have you been bothered by any of the following problems? 1. Little interest or pleasure in doing things: not at all 2. Feeling down, depressed, or hopeless: not at all 3. Trouble falling or staying asleep, or sleeping too much: not at all 4. Feeling tired or having little energy: not at all 5. Poor appetite or overeating: not at all 6. Feeling bad about yourself - or that you are a failure or have let yourself or your family down: not at all 7. Trouble concentrating on things, such as reading the newspaper or watching television: not at all 8. Moving or speaking so slowly that other people could have noticed. Or the opposite - being so fidgety or restless that you have been moving around a lot more than usual: not at all 9. Thoughts that you would be better off or of hurting yourself in some way: not at all Total score: 0 Depression Screening Interpretation: Negative (is on Rx) Depression Screening Done: Yes 47630 - PHQ-9 Billing: Yes Source: Developed by Drs. Ga Richard, Rosio Grigsby, Jose Johnson and colleagues, with an educational lulu from [employer]. Thrive Questionnaire Date Thrive assessed: 10/09/24 I am a: Patient What is your living situation today?: I have a steady place to live Within the past 12 months, did the food you bought not last and you didn't have the money to get more?: Never true Within the past 12 months, did you worry whether your food would run out before you got money to buy more?: Never true Do you have trouble paying for medicines?: No Do you have trouble getting transportation to medical appointments?: No Do you have trouble paying your heating and electricity bill?: No Do you have trouble taking care of your child, family member or friend?: No Do you have trouble with day-to-day activities such as bathing, preparing meals, shopping, managing finances, etc.?: No Are you currently unemployed and looking for a job?: No Are you interested in more education?: No Please select the resources that you would like help with: None Currently or been in a relationship where the following occur: No concerns r eported THRIVE Score: 0 AUDIT C Alcohol Use Questionnaire (AUDIT-C) 1. How often do you have a drink containing alcohol?: Monthly or less 2. How many drinks containing alcohol do you have on a typical day when you are drinking?: 1 or 2 3. How often do you have six or more drinks on one occasion?: Never Total Score: 1 Score Reviewed/Action Taken: Yes LINN-7 AMB Questionnaire LINN-7 Date LINN - 7 assessed: 10/09/24 Feeling nervous, anxious, or on edge: 0 = Not at all Not being able to stop or control worryin = Not at all Worrying too much about different things: 0 = Not at all Trouble relaxin = Not at all Being so restless that it is hard to sit still: 0 = Not at all Becoming easily annoyed or irritable: 0 = Not at all Feeling afraid as if something awful might happen: 0 = Not at all Total LINN-7 score (0-4 normal; 5-9 mild; 10-14 moderate; 15-21 severe): 0 Source: Developed by Drs. Ga Richard, Rosio Grigsby, Jose Jonhson and colleagues, with an educational lulu from [employer]. LINN-7 Assessment Billing LINN-7 Assessment Tool: LINN-7 Assessment 03056 Review of Systems Const Details: Const Denies chills, Denies fatigue, Denies fever(s), Denies headache(s) and Denies weakness ENT Denies dizziness and Denies headache(s) Card Denies chest pain, Denies lightheadedness, reports ongoing dyspnea with exertion and Denies other (Palpitations) Resp Denies cough, Denies wheezing GI Denies abdominal pain, Denies melena, Denies hematochezia, Denies dyspepsia and Denies nausea, reports intermittent lose stools, reports intermittent constipation Denies hematuria and Denies dysuria, reports recurrent urinary retention Musc Denies abnormal gait, Denies myalgias, Denies arthralgias, Denies numbness and Denies tingling Skin/Breast Denies rash, Denies unusual bruising and Denies wounds Neuro Denies abnormal gait, Denies dizziness, Denies headache(s), Denies memory loss, Denies numbness, Denies Sensory deficit (Neuro), Denies tingling and Denies weakness Psych Denies anxiety, Denies depression, Denies memory loss Endo Denies cold intolerance, Denies fatigue, Denies heat intolerance, Denies polydipsia and Denies polyuria Aller/Immun Denies wheezing Physical exam (Primary Care) Vital Signs: Last Vital Signs Pulse 103 H 10/09/24 10:38 BP 124/80 10/09/24 10:38 Pulse Ox 98 10/09/24 10:38 Oxygen Delivery Method Room Air 10/09/24 10:38 BMI result Body Mass Index 36.5 Tobacco/Smoking Status: Tobacco use Status Tobacco use date assessed 10/09/24 10/09/24 10:43 Patient Tobacco Use Status Current everyday Tobacco 10/09/24 10:43 Tobacco use type Cigarette 10/09/24 10:43 e-Cigarette/Vaping Use Currently Using 10/09/24 10:43 PHQ-9: PHQ-9 Score PHQ-9: Total score 0 10/10/24 05:14 Depression Screening Interpretation: Negative (is on Rx) Thrive Assessment: Date of Thrive Assessment Date Thrive assessed 10/09/24 10/09/24 10:43 Currently or been in a relationship where the following occur: No concerns reported Const Other: General: no acute distress and well developed Nutritional Appearance: well nourished Orientation/consciousness: patient oriented x3 HENMT Head: Yes normocephalic and Yes atraumatic Eyes General: appearance normal, both eyes and all related structures Pupils: Equal, round and reactive pupils present EOM: EOMs intact bilaterally Resp Effort & Inspection: mild use of accessory muscles Auscultation: clear to auscultation bilaterally Cardio Rate: regular rate Rhythm: regular rhythm Heart sounds: S1 normal heart sound present, S2 normal heart sound present, no gallops, murmur heart sound present and no rubs GI Palpation (GI): No Abdominal aortic bruit present, Soft to palpation, nontender, No hepatosplenomegaly present,no Rebound tenderness present, abdomen large, round and protuberant Auscultation: normal bowel sounds General: Yes no CVA tenderness Back/Spine/Pelvis Back: no CVA tenderness Cervical Spine: cervical ROM normal and No Cervical spine tenderness Thoracic/Lumbar Spine: thoraco-lumbar ROM normal, No pain with thoraco-lumbar ROM, No thoracic spinal tenderness and No lumbar spinal tenderness Extrem General: Yes normal to inspection, No edema and No calf tenderness Skin General: warm and dry. Normal skin color. Normal skin turgor Lesions: no lesions Rashes: no rashes Trauma: no lacerations or abrasions Wounds: no wounds Nails: normal Neuro General: patient oriented x3, gait normal and no focal neuro deficit Cranial nerves: Yes Equal, round and reactive pupils present Cognition (Neuro): normal cognition Gait exam (Neuro): Normal gait present Sensory Exam: No Sensory deficit (Neuro) Psych Appearance: grossly normal Affect: normal affect Attitude: cooperative Thought process: Normal thought process present Results AMB Hemoglobin A1c AMB Hemoglobin A1c 9.1 % Last Edit by MANINDER Pimentel on 10/09/24 11 :33 Results Reviewed Results Reviewed: Laboratory Last Values Hgb A1c (Clinic) 9.1 % (4.0-6.0) H 10/09/24 11:32 Laboratory Tests 09/29/24 10/02/24 10/09/24 06:27 05:27 11:32 WBC 5.2 RBC 3.75 L Hgb 10.2 L Hct 32.5 L Plt Count 131 L D Sodium 144 Potassium 3.7 Chloride 111 H BUN 9 Creatinine 1.04 Estimated GFR > 60 Hgb A1c (Clinic) 9.1 H Urine Color Yellow Urine Appearance Clear Urine pH 5.5 Urine Protein 30 (1+) H Urine Glucose (UA) Negative Urine Ketones Negative Urine Blood Negative Urine Nitrite Negative Ur Leukocyte Esterase Negative Coding Level of Care Code TCM Mod MDM <= 7 Days Diagnoses Small bowel obstruction K56.609 Benign prostatic hyperplasia with urinary frequency N40.1; R35.0 Lower urinary tract symptom detail: urinary frequency Lower urinary tract symptom presence: symptoms present Type 2 diabetes mellitus without complication, with long-term current use of insulin E11.9; Z79.4 Diabetes mellitus complication status: without complication Diabetes mellitus intermediate accountant insulin use: with intermediate accountant use Diabetes mellitus type: type 2 Essential hypertension I10 Additional Codes LINN-7 Assessment Billing - LINN-7 Assessment Tool: LINN-7 Assessment 74669 ([id number]) PHQ-9 - 51731 - PHQ-9 Billing: Yes ([id number]) Assessment & Plan Assessment & Plan (1) Small bowel obstruction: Code(s): K56.609 - Unspecified intestinal obstruction, unspecified as to partial versus complete obstruction Category: Medical Plan: The patient was admitted in the ER for partial SMO, the patient abdomen was decompressed with via NG-tube (output of 1000ml of yellowish drainage). The patient was discharged on Senna plus 2 tabs daily, miralax 17g daily, and colace 100 BID. However, the skilled nursing staff reported that they called and got his colace stopped because he is already getting colace in the senna plus and the patient has been refusing the medication. The staff also reports that they changed his miralax to 17g to PRN due to refusal. Reinforced the concern of the patient developing another bowel obstruction due to his noncompliance with taking his medication. Encouraged dietary fiber (2) BPH (benign prostatic hyperplasia): Code(s): N40.0 - Benign prostatic hyperplasia without lower urinary tract symptoms Category: Medical Qualifiers: Lower urinary tract symptom detail: urinary frequency Lower urinary tract symptom presence: symptoms present Qualified Code(s): N40.1 - Benign prostatic hyperplasia with lower urinary tract symptoms; R35.0 - Frequency of micturition Plan: The patient complains of urinary retention, reports that he stopped taking his flomax that was prescribed by urology (Dr. Cox) The patient and the skilled nursing staff was encouraged to follow up with Dr. Cox. The patient went to use the bathroom during visit and stated that he urinated a good amount. The skilled nursing staff reports that they will make an appt when they get back to the home. (3) Diabetes mellitus: Code(s): E11.9 - Type 2 diabetes mellitus without complications Category: Medical Qualifiers: Diabetes mellitus complication status: without complication Diabetes mellitus fpc insulin use: with intermediate accountant use Diabetes mellitus type: type 2 Qualified Code(s): E11.9 - Type 2 diabetes mellitus without complications; Z79.4 - roasterman (current) use of insulin Plan: The patient POC was in the 200s in the hospital the patient will place on insulin with sliding scale. The patient was discharged without any diabetic medications. Per skilled nursing med list patient was not on any diabetic medication. On chart review, it was noted that the patient was seen by Dr. Hogue on 07/08/24 On that visit, Dr. Hogue noted that the patient metformin and Tradjenta was discontinued due to acute kidney injury It was noted that the patient was on Admelog Q AC and HS per sliding scale Patient report that he has not been taking any diabetic medication and the skilled nursing staff confirmed this. His in-office HgbA1c done today is at 9.1% (HgbA1c was at 6.7% back in May 2024) - goal is at least <7.0% After discussing the issue with Dr. Hogue, Tradjenta 5mg daily and Lantus 10 units at HS was ordered With hopes that since the patient has a nurse helping him in the morning and at night-he more likely will be compliant Endocrine referral ordered as well (4) Essential hypertension: Code(s): I10 - Essential (primary) hypertension Category: Medical Plan: The the patient blood pressure is within goal today Heart rate was slightly elevated at 103-probably due to ambulation Continue metoprolol 100 mg daily Follow up with Cardiology as scheduled Plan Follow in 1 month I personally spent 47 times reviewing the chart, caring for the patient and documenting after the visit. Orders: Orders AMB Hemoglobin A1c 10/09/24 Z13.9 - Encounter for screening, unspecified Referrals Endocrinology Referral E11.9 - Type 2 diabetes mellitus without complications, Z79.4 - roasterman (current) use of insulin Medications: New insulin glargine (Lantus U-100 Insulin) 10 units (0.1 mL) subcut QPM 10 mL 3RF E11.9 - Type 2 diabetes mellitus without complications, Z79.4 - [facility] (current) use of insulin linagliptin (Tradjenta) 5 mg PO DAILY 30 tabs 0RF 30 days
== END 2024-10-09 11:57 | disposition home or self-care (01) ==
PROVIDERS: PCP Internal Medicine
DX: Z13.9 Encounter for screening, unspecified (principal)

== ENCOUNTER → 2024-10-09 10:37 | Outpatient (BNVA) | payer MEDICARE, MEDICAID, SELFPAY | PROVIDERS: PCP Internal Medicine | DX: K56.609 Unspecified intestinal obstruction, unspecified as to partial versus complete obstruction (principal); N40.1 Benign prostatic hyperplasia with lower urinary tract symptoms; R35.0 Frequency of micturition; E11.9 Type 2 diabetes mellitus without complications; I10 Essential (primary) hypertension; Z79.4 Long term (current) use of insulin | CPT/HCPCS: 83036; 96127; 99495 ==

== ENCOUNTER 2024-10-17 12:49 | Outpatient (AMB) | payer MEDICARE, MEDICAID, SELFPAY ==
--- NOTE | 2024-10-17 12:58 | MHC.OFFVIS ---
Vital Signs 10/17/24 13:01 Height 5 ft 9 in Weight 246 lb 14.684 oz BMI 36.5 BP 108/64 Blood Pressure Location Lt brachial Position Sitting Pulse 90 Pulse Source Pulse Oximeter Intake Visit Reasons: T2DM w/o complications Intake Note: New patient internally referred by PCP for T2DM. Last Diabetic Eye exam: Due, 2 years ago Last Podiatry Visit: Due Random Glucose: 229 mg/dl HgA1C: 9.1% 10/09/2024 Business Continuity Consultant Required: No Accompanied by: [facility] Employee Allergies lithium [[place]] Allergy (Severe, Verified 10/17/24 13:05) Toxicity thiothixene Allergy (Severe, Verified 10/17/24 13:05) Swelling amoxicillin Allergy (Mild, Verified 10/17/24 13:05) Nose Bleed benztropine Allergy (Unknown, Verified 10/17/24 13:05) benztropine mesylate- unknown gabapentin [From NEURONTIN] Allergy (Unknown, Verified 10/17/24 13:05) Unknown fluphenazine [From Prolixin] Allergy (Verified 10/17/24 13:05) Unknown barium sulfate [BARIUM SULFATE] Adverse Reaction (Intermediate, Verified 10/17/24 13:05) Nausea and Vomiting haloperidol Adverse Reaction (Intermediate, Verified 10/17/24 13:05) Muscle tension in legs diphenhydramine [From Benadryl] Adverse Reaction (Unknown, Verified 10/17/24 13:05) urinary retention HPI Comments Details: This is a 59-year-old male with a past medical history of BPH, JUDY, hypertrophic obstructive cardiomyopathy, CAD, chronic heart failure with reduced ejection fraction, schizoaffective disorder, lactic acidosis, hypercholesterolemia, insulin-dependent diabetes and hypertension presenting for a consult for diabetic management. He lives in a long-term and is accompanied by [facility] staff today. Twice daily has VNA check blood glucose and administer medications. Patient provided glucometer, but this was before the patient and staff realized this glucometer belongs to his roommate. Patient says his roommate likes to play tricks on him. He has not been using it to check his own blood sugars. VNA is [employer] (phone number [phone]). Form from [facility] requests new glucometer and supplies and switching from Lantus vials to pen. He was diagnosed with diabetes about 5 years ago. Hemoglobin a1c 9.1% 10/09/24. Current medication regimen: Lantus 10 units daily, Tradjenta 5 mg daily. They report these medications were started 3 days ago when he was discharged from the hospital. Previously on metformin which was discontinued when he had JUHI in 2023. Patient also has history of lactic acidosis. Diet: Breakfast- cheerios, lactaid milk , estonian toast, couple coffees daily (lactaid milk) Lunch- TV dinner, seafood sandwich with cheese Dinner-vegetable, chicken, potato Snacks/desserts: no juice or soda Drinks light beer rarely Does not smoke Hypoglycemia symptoms: none Hyperglycemia symptoms: polyuria , polydipsia Microvascular complications: neuropathy. Eye exam is not up-to-date, but the patient says he is legally blind. Macrovascular complications: CAD ROS: Constitutional: No fever or chills. Eyes: +legally blind Neurologic: +chronic numbness and tingling in feet Skin: No open wounds Physical exam: Constitutional: Alert, in no distress. Neck: Supple, Full range of motion. No lymphadenopathy. No palpable thyroid masses. Respiratory: Clear to auscultation. Cardiovascular: S1 S2 regular. Murmur present. Right foot: Warm and well perfused. Lower extremity edema present. DP pulse 3+. Decreased vibratory sensation. Decreased sensation to monofilament. Dry skin. No open wound. Left foot: Warm and well perfused. Lower extremity edema present. DP pulse 3+. Decreased vibratory sensation. Absent sensation to monofilament.Dry skin. No open wound. [facility] Medical History JUDY (obstructive sleep apnea) BPH (benign prostatic hyperplasia) Diabetes mellitus Essential hypertension HOCM (hypertrophic obstructive cardiomyopathy) Coronary artery disease Osteoarthritis GERD without esophagitis Vitamin D deficiency Schizoaffective disorder Congestive heart failure COVID-19 Thought disorder Nocturnal hypoxemia Constipation COPD (chronic obstructive pulmonary disease) Smoker Diabetes mellitus Obesity (BMI 30-39.9) Pure hypercholesterolemia Prolonged QT interval Aggression Hypertension CHF (congestive heart failure) Cardiac arrhythmia Myocardial infarction Surgical History History of ankle surgery History of intestinal surgery History of transurethral resection of prostate Family History Father Medical history unknown Mother Medical history unknown Sister Alive and well Social History Household Members: Other Household Members Other:: Roommate Housing: Assisted Living Facility Housing Other:: [facility] Do you presently have visiting nurse or other home services: No Unable to assess alcohol history related to: Unknown Alcohol intake: never Comment: Sitter in room Patient Tobacco Use Status: Current everyday Tobacco user Tobacco use type: Cigarette Cigarette Packs Per Day: 0.5 Cigarettes Per Day: 10 Years Smoked: Many e-Cigarette/Vaping Use: Currently Using Second Hand Smoke Exposure: Yes Substance Use Type: Unknown Advance Directives Date on File: 01/14/24 service: No Current occupational status: disabled Sexual orientation: Straight/Heterosexual Cognitive needs: Yes Hearing needs: No Vision needs: Yes Physical Exam Vital Signs: Last Vital Signs Pulse 90 10/17/24 13:01 BP 108/64 10/17/24 13:01 BMI result Body Mass Index 36.5 Results Reviewed Results Reviewed: Laboratory Tests 08/04/22 03/07/23 01/10/24 10:08 09:21 09:17 Creatinine Estimated GFR Hgb A1c (Clinic) 7.3 H 6.6 H Triglycerides Cholesterol LDL Cholesterol, Calc 73 HDL Cholesterol TSH Urine Creatinine Urine Microalbumin Microalb/Creat Ratio 06/04/24 07/09/24 09/29/24 15:17 10:29 06:54 Creatinine 1.72 H Estimated GFR Hgb A1c (Clinic) Triglycerides 485 H Cholesterol 270 H LDL Cholesterol, Calc TNP HDL Cholesterol 42 TSH 1.11 Urine Creatinine 27.98 Urine Microalbumin 71.0 Microalb/Creat Ratio 253.7 H 09/30/24 10/01/24 10/02/24 09:44 05:50 05:27 Creatinine 1.30 1.15 1.04 Estimated GFR 56 > 60 Hgb A1c (Clinic) Triglycerides Cholesterol LDL Cholesterol, Calc HDL Cholesterol TSH Urine Creatinine Urine Microalbumin Microalb/Creat Ratio 10/09/24 11:32 Creatinine Estimated GFR Hgb A1c (Clinic) 9.1 H Triglycerides Cholesterol LDL Cholesterol, Calc HDL Cholesterol TSH Urine Creatinine Urine Microalbumin Microalb/Creat Ratio Assessment & Plan Assessment & Plan (1) Type II diabetes with chcf use of insulin: Code(s): E11.9 - Type 2 diabetes mellitus without complications; Z79.4 - correction (current) use of insulin Category: Medical Plan: Discussed pathophysiology of Type II Diabetes Mellitus with the patient in detail.? I explained the film producer risks and complications associated with uncontrolled diabetes including nephropathy, neuropathy, peripheral vascular disease, retinopathy, increased risk of heart disease and stroke.? Discussed lifestyle modification with the patient. Referred to sales service coordinator. The patient is referred to podiatry. The patient is not a good candidate for a CGM as he is not able to self administer medications and manage alerts. VNA is available twice daily. Prescription sent: Glucometer and supplies, pen needles, glucose tablets, alcohol pads. Stop Lantus vials and start Lantus Solostar pen 10 units daily. Continue Tradjenta 5 mg daily. Reviewed treatment of hypo and hyperglycemia. Follow up in 2-3 weeks and bring your own meter so we can review data and adjust medications. Orders: Referrals Securities Settlement Processor Nutrition Referral E11.65 - Type 2 diabetes mellitus with hyperglycemia Podiatry Referral E11.40 - Type 2 diabetes mellitus with diabetic neuropathy, unspecified, Z91.89 - Other specified personal risk factors, not elsewhere classified Medications: New insulin glargine (Lantus Solostar U-100 Insulin) 10 units (0.1 mL) subcut DAILY 15 mL 5RF pen needle, diabetic (BD Erica 2nd Gen Pen Needle) As directed to administer lantus insulin once daily 100 ea 11RF blood-glucose meter (OneTouch Verio Flex Meter) Use as directed to check blood glucose twice daily for Type II diabetes mellitus. 1 ea 0RF E11.9 - Type 2 diabetes mellitus without complications, Z79.4 - pss delivery professional (current) use of insulin glucose (Dex4 Glucose Quick Dissolve) until glucose is over 70 16 grams (4 x 4 gram) PO Q15M PRN 10 tabs 3RF hypoglycemia alcohol swabs (Alcohol Pads) 1 pad topical TID 100 ea 11RF E11.9 - Type 2 diabetes mellitus without complications, Z79.4 - pss delivery professional (current) use of insulin lancets (OneTouch Delica Plus Lancet) Use as directed to check blood glucose twice daily. 100 ea 5RF E11.9 - Type 2 diabetes mellitus without complications, Z79.4 - correction (current) use of insulin blood sugar diagnostic (OneTouch Verio test strips) Use as directed to check blood glucose twice daily. 100 ea 5RF E11.9 - Type 2 diabetes mellitus without complications, Z79.4 - correction (current) use of insulin Discontinued insulin glargine (Lantus U-100 Insulin) Discontinued Reason: Doctor's Order 10 units (0.1 mL) subcut QPM 10 mL 3RF E11.9 - Type 2 diabetes mellitus without complications, Z79.4 - correction (current) use of insulin Patient Instructions: If you experience low blood sugar, treat this by eating a chewable fruit candy like skittles or jelly beans (about 8 pieces), 4 ounces (1/2 cup) of fruit juice (not diet), 1 tablespoon of honey or 4 glucose tablets. If your blood sugar is under 50, take double the amount of one of the above. Recheck your blood sugar in 15 minutes. I sent a new glucomet and supplies to the pharmacy. I sent the insulin pen to the pharmacy. Coding Level of Care Code New Pt Level 4 (05327) Complex EM visit Add On G2211 Diagnoses Type II diabetes with chcf use of insulin E11.9; Z79.4
[2024-10-17 13:01] VITALS: BP 108/64; PULSE 90; BMI 36.5
[2024-10-17 13:18] LABS: Glucose, Whole Blood 229 mg/dL (60-115)
== END 2024-10-17 14:05 | disposition home or self-care (01) ==
PROVIDERS: PCP Internal Medicine; Visit Provider Physician Assistant Medical
DX: E11.9 Type 2 diabetes mellitus without complications (principal); Z79.4 Long term (current) use of insulin

== ENCOUNTER → 2024-10-17 12:49 | Outpatient (BNVA) | payer MEDICARE, MEDICAID, SELFPAY | PROVIDERS: PCP Internal Medicine; Visit Provider Physician Assistant Medical | DX: E11.9 Type 2 diabetes mellitus without complications (principal); Z79.4 Long term (current) use of insulin | CPT/HCPCS: 82947; 99202 ==

== ENCOUNTER 2024-10-28 12:48 | Outpatient (AMB) | payer MEDICARE, MEDICAID, SELFPAY ==
[2024-10-28 12:55] VITALS: BP 132/80; PULSE 92; BMI 36.9
--- NOTE | 2024-10-28 12:55 | MHC.OFFVIS ---
Vital Signs 10/28/24 12:55 Height 5 ft 9 in Weight 250 lb 0.067 oz BMI 36.9 BP 132/80 Blood Pressure Location Rt brachial Position Sitting Pulse 92 Pulse Source Pulse Oximeter Intake Visit Reasons: 6 mth f/up Chief Information Officer Required: No Parking Enforcement Manager: Parking Enforcement Manager Present Allergies lithium [[place]] Allergy (Severe, Verified 10/28/24 12:58) Toxicity thiothixene Allergy (Severe, Verified 10/28/24 12:58) Swelling amoxicillin Allergy (Mild, Verified 10/28/24 12:58) Nose Bleed benztropine Allergy (Unknown, Verified 10/28/24 12:58) benztropine mesylate- unknown gabapentin [From NEURONTIN] Allergy (Unknown, Verified 10/28/24 12:58) Unknown fluphenazine [From Prolixin] Allergy (Verified 10/28/24 12:58) Unknown barium sulfate [BARIUM SULFATE] Adverse Reaction (Intermediate, Verified 10/28/24 12:58) Nausea and Vomiting haloperidol Adverse Reaction (Intermediate, Verified 10/28/24 12:58) Muscle tension in legs diphenhydramine [From Benadryl] Adverse Reaction (Unknown, Verified 10/28/24 12:58) urinary retention Medication List - Last Reconciled 10/28/24 by Klaudia Casillas NP-C acetaminophen (Tylenol) 650 mg PO Q6H PRN albuterol sulfate 90 mcg/actuation 2 puffs inhalation Q6H PRN 30 days alcohol swabs (Alcohol Pads) 1 pad topical TID alum-mag hydroxide-simeth 200-200-20 mg/5 mL 10 mL PO TID PRN aspirin 81 mg PO DAILY@0800 90 days atorvastatin 20 mg PO DAILY@1999 90 days blood sugar diagnostic ([employer] Verio test strips) Use as directed to check blood glucose twice daily. blood-glucose meter ([employer] Verio Flex Meter) Use as directed to check blood glucose twice daily for Type II diabetes mellitus. cholecalciferol (vitamin D3) 25 mcg PO DAILY@0800 30 days clozapine 75 mg (3 x 25 mg) PO DAILY 30 days clozapine 100 mg PO DAILY@1999 furosemide (Lasix) 40 mg PO DAILY 90 days glucose (Dex4 Glucose Quick Dissolve) 16 grams (4 x 4 gram) PO Q15M PRN insulin glargine (Lantus Solostar U-100 Insulin) 10 units (0.1 mL) subcut DAILY lancets (OneTouch Delica Plus Lancet) Use as directed to check blood glucose twice daily. linagliptin (Tradjenta) 5 mg PO DAILY 30 days lurasidone 60 mg PO BEDTIME@1800 metoprolol succinate ER 100 mg See Protocol PO DAILY 90 days nicotine (polacrilex) 4 mg buccal Q2H PRN nitroglycerin 0.4 mg sublingual Q5M PRN omeprazole 20 mg PO BID@0630,1630 30 days pen needle, diabetic (BD Erica 2nd Gen Pen Needle) As directed to administer lantus insulin once daily polyethylene glycol 3350 17 grams PO DAILY 30 days sennosides-docusate sodium 8.6-50 mg (Senna Plus) 2 tabs PO DAILY 30 days testosterone 1 packet transdermal DAILY 30 days trazodone 50 mg PO BEDTIME 30 days HPI HPI 6 mth f/up: Details: Navid is a 59-year-old male with past medical history of hypertension, hyperlipidemia, diabetes, smoking, schizoaffective disorder, hypertrophic obstructive cardiomyopathy, COPD who recently had a cardiac MRI and now presents for follow-up. Today he presents with a case mgr. He is alert and appropriate but seems to have no insight on his cardiac condition, even after I discussed it with him. He does have shortness of breath with overall he says is improved. His case was worker also reports that his breathing has gotten better from what it had been recently. He is on medications for his COPD and he wears oxygen when doing things around his apartment and during the night. He is not wearing oxygen at this visit. He denies having chest discomfort at rest or with activity. He has had no recent dizziness. No presyncope, syncope, falls. No PND, orthopnea or edema. He says he stopped smoking 4 days ago. He lives in a [facility] and takes his medications when they are given to him. He is mostly sedentary and does minimal activities in the home. [facility] Medical History Diabetic neuropathy Type II diabetes with alf use of insulin JUDY (obstructive sleep apnea) BPH (benign prostatic hyperplasia) Diabetes mellitus Essential hypertension HOCM (hypertrophic obstructive cardiomyopathy) Coronary artery disease Osteoarthritis GERD without esophagitis Vitamin D deficiency Schizoaffective disorder Congestive heart failure COVID-19 Thought disorder Nocturnal hypoxemia Constipation COPD (chronic obstructive pulmonary disease) Smoker Diabetes mellitus Obesity (BMI 30-39.9) Pure hypercholesterolemia Prolonged QT interval Aggression Hypertension CHF (congestive heart failure) Cardiac arrhythmia Myocardial infarction Surgical History History of ankle surgery History of intestinal surgery History of transurethral resection of prostate Family History Father Medical history unknown Mother Medical history unknown Sister Alive and well Social History Household Members: Other Household Members Other:: Roommate Housing: Assisted Living Facility Housing Other:: [facility] Do you presently have visiting nurse or other home services: No Unable to assess alcohol history related to: Unknown Alcohol intake: never Comment: Sitter in room Patient Tobacco Use Status: Current everyday Tobacco user Tobacco use type: Cigarette Cigarette Packs Per Day: 0.5 Cigarettes Per Day: 10 Years Smoked: Many e-Cigarette/Vaping Use: Currently Using Second Hand Smoke Exposure: Yes Substance Use Type: Unknown Advance Directives Date on File: 01/14/24 service: No Current occupational status: disabled Sexual orientation: Straight/Heterosexual Cognitive needs: Yes Hearing needs: No Vision needs: Yes Review of Systems Const All systems reviewed & are unremarkable except as noted in HPI and below ENT Denies dizziness Card Denies chest pain, Denies chest pain at rest, Denies chest pain with activity, Denies rapid heart rate, Denies pedal edema, Denies edema, Denies leg edema, Denies lightheadedness, Denies palpitations, Reports dyspnea, Reports dyspnea on exertion and Denies orthopnea Resp Denies cough, Reports dyspnea and Reports dyspnea on exertion GI Denies hematochezia and Denies change in stool character Musc Denies abnormal gait, Denies limited range of motion, Denies muscle cramps, Denies muscle weakness, Denies numbness, Denies radiating pain into limb, Denies stiffness and Denies tingling Neuro Denies abnormal gait, Denies dizziness, Denies numbness and Denies tingling Endo Denies palpitations Physical Exam Vital Signs: Last Vital Signs Pulse 92 10/28/24 12:55 BP 132/80 10/28/24 12:55 BMI result Body Mass Index 36.9 Const General: cooperative, healthy appearing, comfortable and no acute distress Orientation/consciousness: patient oriented x3 Neck Neck: Yes normal visual inspection Resp Effort & Inspection: normal respiratory effort Auscultation: clear to auscultation bilaterally, no rales, no rhonchi and no wheezes Cardio Jugular venous distension: no JVD Rate: regular rate Rhythm: regular rhythm Heart sounds: S1 normal heart sound present, S2 normal heart sound present, no gallops, Murmur heart sound present (faint systolic murmur present) and no rubs Neuro General: patient oriented x3 Extrem General: Yes normal to inspection and No no pedal edema Psych Appearance: grossly normal Mental Status: mental status grossly normal Speech and movement: Normal speech and movement present Assessment & Plan Assessment & Plan (1) HOCM (hypertrophic obstructive cardiomyopathy): Code(s): I42.1 - Obstructive hypertrophic cardiomyopathy Category: Medical Plan: History of hypertrophic cardiomyopathy. A cardiac MRI done in 2017 showed hypertrophic cardiomyopathy with at least moderate LV outflow track obstruction, systolic anterior motion of the mitral valve, degree of hypertrophy greatest at the apical segment, no abnormal enhancement, subjectively preserved EF. Echocardiogram done on 10/10/2023 showing EF greater than 70%, severe increase in LV wall thickness, dynamic LVOT gradient noted, resting LVOT peak gradient 40 mmHg, post Valsalva 123 mmHg, worse than prior study in 2020, normal RV cavity size and function, left atrium severely dilated, mild dilation of the sinus of Valsalva 4 cm and mild dilation of ascending aorta 3.9 cm. Echocardiogram 05/27/24 showed EF 65-70%, peak LV gradiant 38mmgh, no obvous LVOT gradient noted however technically difficult test A repeat cardiac MRI was done on 08/25/2024 showing technically difficult study, EF 65-75%, severe LVH, apical septum severely hypertrophied, inadequate to assess for LVOT obstruction. He does have shortness of breath at rest and with activity which seems likely related to his COPD. He is following with pulmonology. He says his symptoms respond to albuterol. He wears oxygen p.r.n. and during the night. He does not appear fluid overloaded on exam. Does only light physical activities. His blood pressure is well controlled. Continue current med management including Lasix and metoprolol. Diagnosis of HOCM was reviewed with him. He seems to have very little insight to what this means. He redirect the conversation elsewhere. Instructed on no heavy lifting and carrying. Reviewed with case mgr to Call if worsening of his breathing, new chest pains or shortness presyncope, syncope. Echo in 6 months. Cardiology follow up 6 mo, sooner if needed - plan to go over recent echo and further determined plan of care. (2) Chronic HFrEF (heart failure with reduced ejection fraction): Code(s): I50.22 - Chronic systolic (congestive) heart failure Category: Medical Plan: Admission May [address] scan findings consistent with asymmetric pulmonary edema versus infectious etiology. His BNP was elevated at 616. He was treated for possible infection. He was diuresed with IV Lasix. His home hydrochlorothiazide was stopped and changed over to Lasix 20 mg b.i.d. at discharge. His echocardiogram was overall unchanged. Today he has no clinical signs of fluid overload. No med changes, continue Lasix 40 mg daily. (3) Elevated troponin: Code(s): R79.89 - Other specified abnormal findings of blood chemistry Category: Medical Plan: [facility] admission January 2024 with altered mental status, tachycardia, tachypnea, JUHI, mildly elevated troponin. His EKG was nondiagnostic for ischemia as he does have repolarization abnormalities from LVH. He was evaluated for sepsis. He was seen by infectious disease and was likely to have aspiration pneumonia. Creatinine had been as high as 1.67. Troponin can be mildly elevated in the setting of JUHI. He did have a cardiac catheterization in 2017 which showed normal coronary arteries. He did undergo pharmacological nuclear stress test as outpatient on 04/11/2024 showing a reversible distal inferior defect possibly from diaphragm attenuation artifact, less likely true ischemia, EF 42% with stress and 47% with rest. At this time he does have shortness of breath with activity which could be from his COPD, no chest discomfort. He is mostly sedentary. Signs and symptoms of angina reviewed with him. Continue with risk factor modification. He is on daily aspirin, atorvastatin with ideal LDL goal less than 100. Labs done 01/10/2024 showed LDL 73. He is on metoprolol with good blood pressure control. (4) Prolonged QT interval: Code(s): R94.31 - Abnormal electrocardiogram [ECG] [EKG] Category: Medical Plan: Has had variable QTC levels in the past, likely related to use of antipsychotic medications. Recent EKGs showing QTC ranging 496ms - 523ms. This range is similar to what was noted on his last office visit in 2021. Last EKG done 09/29/2024 shows sinus rhythm with LVH, QTC 477 milliseconds. Labs done 05/28/24 showed magnesium 1.9, labs 06/04/2024 showed potassium 4, calcium 10.2 He denies any heart palpitations, presyncope, syncope. Avoid medications that prolong his QT interval. (5) Hypertension: Code(s): I10 - Essential (primary) hypertension Category: Medical Qualifiers: Hypertension type: essential hypertension Qualified Code(s): I10 - Essential (primary) hypertension Plan: Well controlled at this time. No medication changes made. (6) Abnormal EKG: Code(s): R94.31 - Abnormal electrocardiogram [ECG] [EKG] Category: Medical Plan: EKG does have ST and T-wave abnormalities, chronic, related to LVH, HOCM. Nondiagnostic for ischemia Plan Time spent on chart review, documentation, interview and assessment Orders: Orders CA echo transthoracic complete 04/20/25 I42.1 - Obstructive hypertrophic cardiomyopathy Coding Level of Care Code Est Pt Level 4 (15040) Complex EM visit Add On G2211 Diagnoses HOCM (hypertrophic obstructive cardiomyopathy) I42.1 Chronic HFrEF (heart failure with reduced ejection fraction) I50.22 Elevated troponin R79.89 Prolonged QT interval R94.31 Essential hypertension I10 Hypertension type: essential hypertension Abnormal EKG R94.31 Time Spent (min) 30
--- OUTSIDE RECORDS SUMMARY | 2024-10-28 14:25 | XMS_ITS | Clinical Summary ---
Author Organization [facility] Address [address] [facility], [facility] [address] [place] [address] Phone Care Team Providers Care Teamsite Developer Name Role Phone Regan Hogue MD Primary Care Provider [phone]- [phone] Allergies Active Allergy Reactions Criticality Noted Date Comments Diphenhydramine Other (see comments) 12/19/2023 Haloperidol Other (see comments) 12/19/2023 [place] Other (see comments) 12/19/2023 Thiothixene (Tiotixene) Other (see comments) Medications aspirin (ST BRET) 81 MG EC tablet Take 1 tablet by mouth 1 (one) time each day Active metoprolol succinate XL (TOPROL XL) 50 MG 24 hr tablet Take 50 mg by mouth in the morning and 50 mg in the evening. Active cholecalciferol (VITAMIN D-3) 25 MCG (1000 UT) capsule Take 1 capsule by mouth 1 (one) time each day Active cloZAPine (CLOZARIL) 100 MG tablet Take 200 mg by mouth every night Active atorvastatin (LIPITOR) 20 MG tablet Take 20 mg by mouth 1 (one) time each day Active docusate sodium (Colace) 100 MG capsule Take 1 capsule by mouth in the morning and 1 capsule in the evening. Active Active Problems Problem Noted Date Diagnosed Date Stage 3a chronic kidney disease 12/20/2023 Hypertension 12/20/2023 Schizoaffective disorder, not otherwise specifie d 12/20/2023 [place] adverse reaction <Sequela> 12/20/2023 Acute nontraumatic kidney injury 12/20/2023 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 12/20/2023 Atherosclerotic heart diseas e of [place] coronary artery without angina pectoris, not otherwise specified 12/20/2023 Family History Relation Status Comments Father Mother Social History Tobacco Use Types Packs/Day Years Used Date Smoking Tobacco: Every Day Cigarettes 0.5 41.1 Started: 1983 Smokeless Tobacco: Never Tobacco Cessation:Ready to Q uit: Not Asked; Counseling Given: Not Answered Comments:Smoking History Info:Every day Alcohol Use Standard Drinks/Week Comments Yes 0 (1 standard drink = 0.6 oz pure alcohol) Alcoholic Drinks/day: Occasional social drink Sex and Gender Information Value Date Recorded Sex Assigned at Not on file Legal Sex Male 5:13 PM EST Gender Identity Not on file Sexual Orientation Not on file Last Filed Vital Signs Vital Sign Reading Time Taken Comments Blood Pressure 142/96 12/20/2023 8:21 AM EDT Pulse 84 12/20/2023 8:21 AM EDT Temperature - - Respiratory Rate - - Oxygen Saturation 97% 12/20/2023 8:21 AM EDT Inhaled Oxygen Concentration - - Weight 107 kg (236 lb) 12/20/2023 8:21 AM EDT Height 175.3 cm (5' 9 ) 12/20/2023 8:21 AM EDT Body Mass Index 34.85 12/20/2023 8:21 AM EDT Plan of Treatment Upcoming Encounters Date Type Department Care Team (Late st Contact Info) Description 12/18/2024 8:20 AM EDT Office Visit [facility] [address] [phone] Igor Mane MD [address] [address] Health Maintenance Due Date Last Done Comments Pneumococcal Vaccine: Pediat rics (0 to 5 Years) and At-Risk Patients (6 to 64 Years) (1 of 2 - PCV) 01/11/1970 Colorectal Cancer Screening: Annual FOBT 01/11/2013 Colorectal Cancer Screening: Colonoscopy 01/11/2013 Colorectal Cancer Screening: Sigmoidoscopy 01/11/2013 Diabetes: Hemoglobin A1C 12/03/2023 Diabetes: Ophthalmology Exam 12/03/2023 Diabetes: Pedal Pulse Checked 12/03/2023 Diabetes: Sensory Foot Exam 12/03/2023 Diabetes: Visual Foot Exam 12/03/2023 Influenza Vaccine (#1) 2024 Hepatitis B Vaccine Aged Out No longe r eligible based on patient's age to complete this topic Insurance [employer] MED[employer]ARE [employer] MED[employer]ARE Care Teams Teamsite Developer Relationship Specialty Start Date End Date Regan Hogue MD [address] [place] [address] PCP - General Internal Medicine 12/20/23
== END 2024-10-28 14:33 | disposition home or self-care (01) ==
PROVIDERS: PCP Internal Medicine; Visit Provider Nurse Practitioner Family
DX: I42.1 Obstructive hypertrophic cardiomyopathy (principal); I50.22 Chronic systolic (congestive) heart failure; R79.89 Other specified abnormal findings of blood chemistry; R94.31 Abnormal electrocardiogram [ECG] [EKG]; I10 Essential (primary) hypertension
CPT/HCPCS: 99214; G2211

== ENCOUNTER → 2024-10-28 12:48 | Outpatient (BNVA) | payer OTHER, SELFPAY | PROVIDERS: PCP Internal Medicine; Visit Provider Nurse Practitioner Family | DX: I11.0 Hypertensive heart disease with heart failure (principal); I42.1 Obstructive hypertrophic cardiomyopathy; I50.22 Chronic systolic (congestive) heart failure; F17.210 Nicotine dependence, cigarettes, uncomplicated; J44.9 Chronic obstructive pulmonary disease, unspecified; R79.89 Other specified abnormal findings of blood chemistry; R94.31 Abnormal electrocardiogram [ECG] [EKG]; Z99.81 Dependence on supplemental oxygen | CPT/HCPCS: 99212 ==

== ENCOUNTER 2024-11-07 10:49 | Outpatient (AMB) | payer MEDICARE, MEDICAID, SELFPAY ==
--- NOTE | 2024-11-07 11:11 | MHC.OFFVIS ---
Vital Signs 11/07/24 11:13 Height 5 ft 9 in Weight 241 lb 13.553 oz BMI 35.7 BP 126/72 Blood Pressure Location Rt brachial Position Sitting Pulse 90 Pulse Source Pulse Oximeter Intake Visit Reasons: T2DM Intake Note: Patient present today to follow up on Type 2 Diabetes Mellitus. Last Diabetic Eye exam: Due Last Podiatry Visit: Does not see a Entry Level Machine Operator Random Glucose: 247 mg/dl HgA1C: 9.1% 10/09/2024 Senior Business Manager Required: No Accompanied by: [facility] Staff Allergies lithium [[place]] Allergy (Severe, Verified 11/07/24 12:11) Toxicity thiothixene Allergy (Severe, Verified 11/07/24 12:11) Swelling amoxicillin Allergy (Mild, Verified 11/07/24 12:11) Nose Bleed benztropine Allergy (Unknown, Verified 11/07/24 12:11) benztropine mesylate- unknown gabapentin [From NEURONTIN] Allergy (Unknown, Verified 11/07/24 12:11) Unknown fluphenazine [From Prolixin] Allergy (Verified 11/07/24 12:11) Unknown barium sulfate [BARIUM SULFATE] Adverse Reaction (Intermediate, Verified 11/07/24 12:11) Nausea and Vomiting haloperidol Adverse Reaction (Intermediate, Verified 11/07/24 12:11) Muscle tension in legs diphenhydramine [From Benadryl] Adverse Reaction (Unknown, Verified 11/07/24 12:11) urinary retention HPI Comments Details: This is a 59-year-old male with a past medical history of BPH, JUDY, hypertrophic obstructive cardiomyopathy, CAD, chronic heart failure with reduced ejection fraction, schizoaffective disorder, lactic acidosis, hypercholesterolemia, insulin-dependent diabetes and hypertension presenting for a consult for diabetic management. He lives in a retirement and is accompanied by [facility] staff today. Twice daily has [facility] check blood glucose and administer medications. His insurance does not cover freestyle or One-Touch so they dispensed and brace glucometer which can not be downloaded. I reviewed his recent readings. His 7 day average is 239. 180-240 in the morning. Evening glucose readings are between 240-300. VNA is [facility] (phone number [phone]). He was diagnosed with diabetes about 5 years ago. Hemoglobin a1c 9.1% 10/09/24. Current medication regimen: Lantus 10 units daily, Tradjenta 5 mg daily. Previously on metformin which was discontinued when he had JUHI in 2023. Patient also has history of lactic acidosis. [facility] staff also reports to me that they are going to the ER after this for a crisis evaluation because Navid does not want to the retirement. He tells me that he has been having difficulty with his roommate and feels depressed (confirmed in EMR that patient did go to ED following the appointment). Diet: Breakfast- cheerios, lactaid milk , swedish toast, couple coffees daily (lactaid milk) Lunch- TV dinner, seafood sandwich with cheese Dinner-vegetable, chicken, potato Snacks/desserts: no juice or soda Drinks light beer rarely Does not smoke Hypoglycemia symptoms: none Hyperglycemia symptoms: polyuria , polydipsia Microvascular complications: neuropathy and nephropathy Macrovascular complications: CAD ROS: Constitutional: No fever or chills. Eyes: +legally blind Neurologic: +chronic numbness and tingling in feet Skin: No open wounds Physical exam: Constitutional: Alert, in no distress. Neck: Supple, Full range of motion. No lymphadenopathy. No palpable thyroid masses. Respiratory: Clear to auscultation. Cardiovascular: S1 S2 regular. Murmur present. [facility]LY [facility] Medical History Diabetic neuropathy Type II diabetes with manager long term care use of insulin JUDY (obstructive sleep apnea) BPH (benign prostatic hyperplasia) Diabetes mellitus Essential hypertension HOCM (hypertrophic obstructive cardiomyopathy) Coronary artery disease Osteoarthritis GERD without esophagitis Vitamin D deficiency Schizoaffective disorder Congestive heart failure COVID-19 Thought disorder Nocturnal hypoxemia Constipation COPD (chronic obstructive pulmonary disease) Smoker Diabetes mellitus Obesity (BMI 30-39.9) Pure hypercholesterolemia Prolonged QT interval Aggression Hypertension CHF (congestive heart failure) Cardiac arrhythmia Myocardial infarction Surgical History History of ankle surgery History of intestinal surgery History of transurethral resection of prostate Family History Father Medical history unknown Mother Medical history unknown Sister Alive and well Social History Household Members: Other Household Members Other:: Roommate Housing: Assisted Living Facility Housing Other:: [facility] Do you presently have visiting nurse or other home services: No Unable to assess alcohol history related to: Unknown Alcohol intake: never Comment: Sitter in room Patient Tobacco Use Status: Current everyday Tobacco user Tobacco use type: Cigarette Cigarette Packs Per Day: 0.5 Cigarettes Per Day: 10 Years Smoked: Many Smoked in Last 30 Days: No e-Cigarette/Vaping Use: Currently Using Second Hand Smoke Exposure: Yes Use of substances other than those prescribed or required for medical reasons: No Substance Use Type: Unknown Advance Directives Date on File: 01/14/24 service: No Current occupational status: disabled Sexual orientation: Straight/Heterosexual Cognitive needs: Yes Hearing needs: No Vision needs: Yes Physical Exam Vital Signs: Last Vital Signs Pulse 90 11/07/24 11:13 BP 126/72 11/07/24 11:13 BMI result Body Mass Index 35.7 Results Reviewed Results Reviewed: Laboratory Last Values Glucose (Clinic) 247 mg/dL (60-115) H 11/07/24 11:21 Laboratory Tests 08/04/22 03/07/23 01/10/24 10:08 09:21 09:17 Creatinine Estimated GFR Hgb A1c (Clinic) 7.3 H 6.6 H Triglycerides Cholesterol LDL Cholesterol, Calc 73 HDL Cholesterol TSH Urine Creatinine Urine Microalbumin Microalb/Creat Ratio 06/04/24 07/09/24 09/29/24 15:17 10:29 06:54 Creatinine 1.72 H Estimated GFR Hgb A1c (Clinic) Triglycerides 485 H Cholesterol 270 H LDL Cholesterol, Calc TNP HDL Cholesterol 42 TSH 1.11 Urine Creatinine 27.98 Urine Microalbumin 71.0 Microalb/Creat Ratio 253.7 H 09/30/24 10/01/24 10/02/24 09:44 05:50 05:27 Creatinine 1.30 1.15 1.04 Estimated GFR 56 > 60 Hgb A1c (Clinic) Triglycerides Cholesterol LDL Cholesterol, Calc HDL Cholesterol TSH Urine Creatinine Urine Microalbumin Microalb/Creat Ratio 10/09/24 11:32 Creatinine Estimated GFR Hgb A1c (Clinic) 9.1 H Triglycerides Cholesterol LDL Cholesterol, Calc HDL Cholesterol TSH Urine Creatinine Urine Microalbumin Microalb/Creat Ratio Assessment & Plan Assessment & Plan (1) Type II diabetes with manager long term care use of insulin: Code(s): E11.9 - Type 2 diabetes mellitus without complications; Z79.4 - [facility] (current) use of insulin Category: Medical Plan: Discussed pathophysiology of Type II Diabetes Mellitus with the patient in detail.? I explained the manager long term care risks and complications associated with uncontrolled diabetes including nephropathy, neuropathy, peripheral vascular disease, retinopathy, increased risk of heart disease and stroke.? Discussed lifestyle modification with the patient. He has been referred to the dietitian. The patient has been referred to Podiatry. The patient is not a good candidate for a CGM as he is not able to self administer medications and manage alerts. VNA is available twice daily. Increase Lantus to 15 units daily. Continue Tradjenta 5 mg daily. Given history of cardiovascular disease and nephropathy start Jardiance 10 mg q.a.m. Reviewed treatment of hypo and hyperglycemia. Follow up in 2 weeks. Repeat creatinine following that visit. Bring meter to all appointments. Medications: New empagliflozin (Jardiance) 10 mg PO QAM 90 tabs 0RF Changed From insulin glargine (Lantus Solostar U-100 Insulin) 10 units (0.1 mL) subcut DAILY 15 mL 5RF To insulin glargine (Lantus Solostar U-100 Insulin) 15 units (0.15 mL) subcut DAILY 15 mL 5RF Coding Level of Care Code Est Pt Level 4 (35888) Complex EM visit Add On G2211 Diagnoses Type II diabetes with skilled nursing use of insulin E11.9; Z79.4
[2024-11-07 11:13] VITALS: BP 126/72; PULSE 90; BMI 35.7
--- OUTSIDE RECORDS SUMMARY | 2024-11-07 11:35 | XMS_ITS | Clinical Summary ---
Author Organization [facility] Address [address] [facility] [address] [place] [address] Phone Care Team Providers Care Auxiliary Engineer Name Role Phone Regan Hogue MD Primary Care Provider [phone]- [phone] Allergies Active Allergy Reactions Criticality Noted Date Comments Diphenhydramine Other (see comments) 12/19/2023 Haloperidol Other (see comments) 12/19/2023 [place] Other (see comments) 12/19/2023 Thiothixene (Tiotixene) Other [...] Schizoaffective disorder, not otherwise specifie d 12/20/2023 [place] adverse reaction <Sequela> 12/20/2023 Acute nontraumatic kidney injury 12/20/2023 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 12/20/2023 Atherosclerotic heart diseas e of [place] coronary artery without angina pectoris, not otherwise [...] Office Visit [facility] [address] [phone] Igor Mane MD [address] [phone] Health Maintenance Due Date Last Done Comments [...] Insurance [employer] MEDICARE [employer] MED[employer]ARE Care Teams Auxiliary Engineer Relationship Specialty Start Date End Date Regan Hogue MD [address] [place] [address] PCP - General Internal Medicine 12/20/23
[2024-11-07 11:41] LABS: Glucose, Whole Blood 247 mg/dL (60-115)
== END 2024-11-07 11:45 | disposition home or self-care (01) ==
PROVIDERS: PCP Internal Medicine; Visit Provider Physician Assistant Medical
DX: E11.9 Type 2 diabetes mellitus without complications (principal); Z79.4 Long term (current) use of insulin

== ENCOUNTER 2024-11-07 11:52 | Emergency (ER) | payer MEDICARE, MEDICAID, SELFPAY ==
--- NOTE | 2024-11-07 12:04 | ED.GENADULT ---
HPI - General Adult General Chief complaint: Behavioral Concerns Stated complaint: Crisis-wants a time out from his roommate Time Seen by Provider: 11/07/24 12:04 Source: patient Mode of arrival: ambulatory Limitations: no limitations History of Present Illness ED Provider: Mita Mackay PA-C HPI narrative: Patient is a 59 year old assigned male at with a history of diabetes, HTN, BPH, hyperterophic cardiomyopathy, CAD, heart failure, and schizoaffective disorder living in a [facility], presenting to the emergency department today with agitation. Patient states that he is irritated with his [facility] roommate and needed a break. Patient denies any homicidal or suicidal ideation. Patient denies any dizziness, lightheadedness, abdominal pain, nausea, vomiting, fever, chills, blurry vision, double vision, loss of vision, chest pain, difficulty breathing, shortness of breath, back pain, night sweats, pain with urination, increased urinary frequency, increased urinary urgency, blood in his urine or stool, syncope or a near syncopal episode, recent trauma or falls, bowel incontinence, bladder incontinence, or any other complaints at this time. Relieving factors: none Exacerbating factors: none Associated symptoms: denies other symptoms Treatments prior to arrival: none Related Data Home Medications ?Medication ?Instructions ?Recorded ?Confirmed clozapine 100 mg tablet 100 mg PO DAILY@199904/28/24 10/28/24 acetaminophen 325 mg tablet 650 mg PO Q6H PRN Pain (Scale 05/27/24 10/28/24 (Tylenol) Score 1-3) aluminum-mag hydroxide-simethicone 10 ml PO TID PRN Indigestion 05/27/24 10/28/24 200 mg-200 mg-20 mg/5 mL oral susp lurasidone 60 mg tablet 60 mg PO BEDTIME@1800 05/27/24 10/28/24 nicotine (polacrilex) 4 mg buccal 4 mg buccal Q2H PRN Smoking 05/27/24 10/28/24 lozenge Cessation nitroglycerin 0.4 mg sublingual 0.4 mg sublingual Q5M PRN Chest 05/27/24 10/28/24 tablet Pain Previous Rx's ?Medication ?Instructions ?Recorded clozapine 25 mg tablet 75 mg (3 x 25 mg) PO DAILY 30 days 02/05/24 #90 tabs polyethylene glycol 3350 17 gram 17 g PO DAILY 30 days #30 ea 02/05/24 oral powder packet trazodone 50 mg tablet 50 mg PO BEDTIME 30 days #30 tabs 02/05/24 cholecalciferol (vitamin D3) 25 25 mcg PO DAILY@0800 30 days #30 05/05/24 mcg (1,000 unit) tablet tabs furosemide 40 mg tablet (Lasix) 40 mg PO DAILY 90 days #90 tabs 06/04/24 metoprolol succinate 100 mg 100 mg PO DAILY 90 days #90 tabs 06/04/24 tablet,extended release 24 hr albuterol sulfate 90 mcg/actuation 2 puff inhalation Q6H PRN 06/18/24 aerosol inhaler Shortness Of Breath Or Wheezing 30 days #1 inhaler testosterone 1 % (50 mg/5 gram) 1 packet transdermal DAILY 30 days 07/02/24 transdermal gel packet #150 grams aspirin 81 mg tablet,delayed 81 mg PO DAILY@08 90 days #90 07/08/24 release tabs sennosides 8.6 mg-docusate sodium 2 tab PO DAILY 30 days #60 tabs 09/09/24 50 mg tablet (Senna Plus) omeprazole 20 mg capsule,delayed 20 mg PO BID@0630,1630 30 days #60 09/15/24 release caps linagliptin 5 mg tablet (Tradjenta) 5 mg PO DAILY 30 days #30 tabs 10/09/24 atorvastatin 20 mg tablet 20 mg PO DAILY@1999 90 days #90 10/14/24 tabs alcohol swabs (Alcohol Pads) 1 pad topical TID #100 ea 10/17/24 blood sugar [facility] 10/17/24 Verio test strips) blood-glucose meter ([facility] 10/17/24 Verio Flex Meter) glucose 4 gram chewable tablet 16 g (4 x 4 gram) PO Q15M PRN 10/17/24 (Dex4 Glucose Quick Dissolve) hypoglycemia #10 tabs lancets 33 gauge (OneTouch Delica #100 ea 10/17/24 Plus Lancet) pen needle, diabetic 32 gauge x #100 ea 10/17/24/32 (BD Erica 2nd Gen Pen Needle) empagliflozin 10 mg tablet 10 mg PO QAM #90 tabs 11/07/24 (Jardiance) insulin glargine 100 unit/mL (3 15 unit (0.15 mL) subcut DAILY #15 11/07/24 mL) subcutaneous pen (Lantus mL Solostar U-100 Insulin) Allergies Allergy/AdvReac Type Severity Reaction Status Date / Time lithium [[place]] Allergy Severe Toxicity Verified 11/07/24 12:11 thiothixene Allergy Severe Swelling Verified 11/07/24 12:11 amoxicillin Allergy Mild Nose Bleed Verified 11/07/24 12:11 benztropine Allergy Unknown benztropine Verified 11/07/24 12:11 mesylate- unknown gabapentin [From NEURONTIN] Allergy Unknown Unknown Verified 11/07/24 12:11 fluphenazine [From Prolixin] Allergy Unknown Verified 11/07/24 12:11 barium sulfate AdvReac Intermediate Nausea and Verified 11/07/24 12:11 [BARIUM SULFATE] Vomiting haloperidol AdvReac Intermediate Muscle Verified 11/07/24 12:11 tension in legs diphenhydramine AdvReac Unknown urinary Verified 11/07/24 12:11 [From Benadryl] retention Review of Systems Constitutional: Constitutional: Reports no additional constitutional complaints, Denies chills, Denies fever(s) and Denies night sweats Eyes: Eyes: Reports no additional eye complaints, Denies blurry vision, Denies change in vision, Denies diplopia, Denies eye discharge, Denies loss of vision and Denies eye pain ENT: Denies dizziness Cardiovascular: Cardiovascular: Reports no additional cardiovascular complaints, Denies chest pain, Denies lightheadedness, Denies Loss of Consciousness and Denies dyspnea Respiratory: Respiratory: Reports no additional respiratory complaints and Denies dyspnea Gastrointestinal: Gastrointestinal: Reports no additional gastrointestinal complaints, Denies abdominal pain, Denies melena, Denies hematochezia, Denies change in bowel habits and Denies change in stool character Genitourinary: Genitourinary: Reports no additional male genitourinary complaints, Denies hematuria, Denies oliguria, Denies difficulty urinating, Denies dysuria, Denies urinary frequency, Denies urinary hesitancy, Denies urinary incontinence and Denies urinary urgency Musculoskeletal: Musculoskeletal: Reports no additional musculoskeletal complaints, Denies numbness and Denies tingling Neurologic: Denies dizziness, Denies loss of vision, Denies numbness and Denies tingling Psychiatric: Psychiatric: Reports no additional psychiatric complaints Endocrine: Endocrine: Reports no additional endocrine complaints Hematologic/Lymphatic: Hematologic/Lymphatic: Reports no additional hematologic/lymphatic complaints Allergic/Immunologic: Allergic/Immunologic: Reports no additional allergic/immunologic complaints [facility] Past Medical History Attestation statement: The following information was validated with the patient. Source: old records reviewed and nursing notes reviewed Medical History Diabetic neuropathy Type II diabetes with custodial use of insulin JUDY (obstructive sleep apnea) BPH (benign prostatic hyperplasia) Diabetes mellitus Essential hypertension HOCM (hypertrophic obstructive cardiomyopathy) Coronary artery disease Osteoarthritis GERD without esophagitis Vitamin D deficiency Schizoaffective disorder Congestive heart failure COVID-19 Thought disorder Nocturnal hypoxemia Constipation COPD (chronic obstructive pulmonary disease) Smoker Diabetes mellitus Obesity (BMI 30-39.9) Pure hypercholesterolemia Prolonged QT interval Aggression Hypertension CHF (congestive heart failure) Cardiac arrhythmia Myocardial infarction Surgical History History of ankle surgery History of intestinal surgery History of transurethral resection of prostate Family History Family History Father Medical history unknown Mother Medical history unknown Sister Alive and well Social History Social History Household Members: Other Household Members Other:: Roommate Housing: Assisted Living Facility Housing Other:: [facility] Do you presently have visiting nurse or other home services: No Unable to assess alcohol history related to: Unknown Alcohol intake: never Comment: Sitter in room Patient Tobacco Use Status: Current everyday Tobacco user Tobacco use type: Cigarette Cigarette Packs Per Day: 0.5 Cigarettes Per Day: 10 Years Smoked: Many Smoked in Last 30 Days: No e-Cigarette/Vaping Use: Currently Using Second Hand Smoke Exposure: Yes Use of substances other than those prescribed or required for medical reasons: No Substance Use Type: Unknown Advance Directives: Yes Advance Directives on File: Yes Advance Directives Date on File: 01/14/24 service: No Current occupational status: disabled Sexual orientation: Straight/Heterosexual Cognitive needs: Yes Hearing needs: No Vision needs: Yes Physical Exam ED Vital Signs: Vital Signs - 24 hr 11/07/24 12:10 11/07/24 12:38 Temperature 97.7 F 97.7 F Pulse Rate 97 97 Respiratory Rate 16 18 Blood Pressure 130/76 130/76 Pulse Oximetry 94 94 Oxygen Delivery Method Room Air Room Air BMI result Body Mass Index 36.5 Const General: cooperative, no acute distress, alert and awake Nutritional Appearance: well nourished Orientation/consciousness: patient oriented x3 Limitations: no limitations HENMT Head: Yes normal to inspection and Yes atraumatic Ears: hearing grossly normal bilaterally and external ears normal General nose exam: Normal external nose present, no nasal discharge noted and no epistaxis Face and sinus: Yes normal facial exam, No abrasion and No laceration Mouth: Normal oral and palatal mucosa present, no drooling and no muffled voice Eyes General: appearance normal, both eyes and all related structures Periorbital: periorbital findings normal Eyelids: Yes eyelids normal Conjunctivae: conjunctivae normal Pupils: Equal, round and reactive pupils present EOM: EOMs intact bilaterally Neck Neck: Yes normal visual inspection, Yes full ROM and Yes no lymphadenopathy Chest Chest palpation & inspection: normal inspection of the chest Resp Effort & Inspection: normal respiratory effort and able to speak in complete sentences GI Inspection: Yes normal to inspection Neuro General: patient oriented x3 and moves all extremities Cranial nerves: Yes Equal, round and reactive pupils present Cognition (Neuro): normal cognition Extrem General: Yes normal to inspection, Yes full ROM and Yes capillary refill normal Psych Appearance: grossly normal Mental Status: mental status grossly normal Affect: normal affect Attitude: cooperative Thought process: Normal thought process present Thought content: Normal thought content present Insight: Good insight present (Psych) Medical Decision Making Medical Decision Making MDM Narrative: Patient is a 59 year old assigned male at with a history of diabetes, HTN, BPH, hyperterophic cardiomyopathy, CAD, heart failure, and schizoaffective disorder living in a [facility], presenting to the emergency department today with agitation. Patient's physical exam was unremarkable. I explained my physical exam findings to the patient. I answered all questions asked by the patient.I stressed the importance of the patient taking his medication as directed (either prescribed or as the over the counter packaging recommends). I stressed the importance of the patient following up with his primary care provider. I stressed the importance of the patient returning to the emergency department immediately if he were to develop any dizziness, shortness of breath, difficulty breathing, chest pain, blurry vision, loss of vision, nausea, vomiting, abdominal pain, fever, chills, back pain, or any other complaints. Patient verbalized agreement and understanding with this treatment plan and discharge. Differential Diagnosis Differential Diagnoses: The differential diagnosis associated with the presentation includes Agitation Irritation Discharge Plan Discharge Clinical Impression: Agitation Patient Disposition: Home, Self-Care Additional Instructions: You should utilize [facility] resources such as their center for when you need a break from your roommate. Follow up with your primary care provider. Return to the emergency department immediately if you develop any suicidal ideation, homicidal ideation, dizziness, shortness of breath, difficulty breathing, chest pain, blurry vision, loss of vision, nausea, vomiting, abdominal pain, fever, chills, back pain, or any other complaints. Prescriptions: No Action cholecalciferol (vitamin D3) 25 mcg (1,000 unit) tablet 25 mcg PO DAILY@0800 30 Days Qty: 30 0RF albuterol sulfate 90 mcg/actuation HFA aerosol inhaler 2 puff inhalation Q6H PRN (Reason: Shortness Of Breath Or Wheezing) 30 Days Qty: 1 0RF sennosides-docusate sodium [Senna Plus] 8.6-50 mg tablet 2 tab PO DAILY 30 Days Qty: 60 0RF omeprazole 20 mg capsule,delayed release(DR/EC) 20 mg PO BID@0630,1630 30 Days Qty: 60 0RF atorvastatin 20 mg tablet 20 mg PO DAILY@2000 90 Days Qty: 90 0RF clozapine 25 mg Tablet 75 mg PO DAILY 30 Days Qty: 90 0RF trazodone 50 mg Tablet 50 mg PO BEDTIME 30 Days Qty: 30 0RF polyethylene glycol 3350 17 gram Powder In Packet 17 g PO DAILY 30 Days Qty: 30 0RF lurasidone 60 mg tablet 60 mg PO BEDTIME@1800 acetaminophen [Tylenol] 325 mg Tablet 650 mg PO Q6H PRN (Reason: Pain (Scale Score 1-3)) nitroglycerin 0.4 mg Tablet, Sublingual 0.4 mg SUBLINGUAL Q5M PRN (Reason: Chest Pain) Rx Instructions: do not exceed 3 doses per episode alum-mag hydroxide-simeth 200-200-20 mg/5 mL Suspension 10 ml PO TID PRN (Reason: Indigestion) Rx Instructions: administer between meals and at bedtime nicotine (polacrilex) 4 mg Lozenge 4 mg buccal Q2H PRN (Reason: Smoking Cessation) furosemide [Lasix] 40 mg tablet 40 mg PO DAILY 90 Days Qty: 90 0RF metoprolol succinate 100 mg tablet extended release 24 hr 100 mg PO DAILY 90 Days Qty: 90 0RF Protocol: Hold for SBP/HR < HOLD for SBP < : 90 HOLD for HR < : 60 clozapine 100 mg tablet 100 mg PO DAILY@2000 (DME) blood-glucose meter [OneTouch Verio Flex meter] [facility] [place] Instructions .ROUTE .MEDSUPPLY Qty: 1 0RF Rx Instructions: Use as directed to check blood glucose twice daily for Type II diabetes mellitus. (DME) OneTouch Verio test strips Strip See Rx Instructions .ROUTE .MEDSUPPLY Qty: 100 5RF Rx Instructions: Use as directed to check blood glucose twice daily. alcohol swabs [Alcohol Pads] Pads, Medicated 1 pad topical TID Qty: 100 11RF (DME) pen needle, diabetic [BD Erica 2nd Gen Pen Needle] 32 gauge x 5/32 needle See Rx Instructions .ROUTE .MEDSUPPLY Qty: 100 11RF Rx Instructions: As directed to administer lantus insulin once daily (DME) lancets [OneTouch Delica Plus Lancet] [facility] See Rx Instructions .ROUTE .MEDSUPPLY Qty: 100 5RF Rx Instructions: Use as directed to check blood glucose twice daily. glucose [Dex4 Glucose Quick Dissolve] 4 gram tablet,chewable 16 g PO Q15M PRN (Reason: hypoglycemia) Qty: 10 3RF Rx Instructions: until glucose is over 70 insulin glargine [Lantus Solostar U-100 Insulin] 100 unit/mL (3 mL) insulin pen 15 unit subcut DAILY Qty: 15 5RF Jardiance 10 mg tablet 10 mg PO QAM Qty: 90 0RF testosterone 1 % (50 mg/5 gram) gel in packet 1 packet transdermal DAILY 30 Days Qty: 150 5RF aspirin 81 mg tablet,delayed release (DR/EC) 81 mg PO DAILY@0800 90 Days Qty: 90 3RF Tradjenta 5 mg tablet 5 mg PO DAILY 30 Days Qty: 30 0RF Referrals: Regan Hogue MD [Primary Care Provider] - Interventions: ED Discharge Assessment Last Done: 11/07/24 12:38 Discharge Date/Time: 11/07/24 12:48 Print Language: Uzbek
[2024-11-07 12:10] VITALS: BP 130/76; PULSE 97; RESP 16; TEMP 36.5; O2SAT 94; BMI 36.5
[2024-11-07 12:38] VITALS: BP 130/76; PULSE 97; RESP 18; TEMP 36.5; O2SAT 94
--- OUTSIDE RECORDS SUMMARY | 2024-11-07 12:50 | XMS_ITS | Clinical Summary ---
Author Organization [facility] Address [address] [facility] [address] [place] [address] Phone Care Team Providers Care Water Softener Servicer Name Role Phone Regan Hogue MD Primary Care Provider [phone] Allergies Active Allergy Reactions Criticality Noted Date Comments Diphenhydramine Other (see comments) 12/19/2023 Haloperidol Other (see comments) 12/19/2023 [place] [employer] Other (see comments) 12/19/2023 Thiothixene (Tiotixene) Other [...] Schizoaffective disorder, not otherwise specifie d 12/20/2023 [place] [employer] adverse reaction <Sequela> 12/20/2023 Acute nontraumatic kidney injury 12/20/2023 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
== END 2024-11-07 12:48 | disposition home or self-care (01) ==
PROVIDERS: Emergency Provider Emergency Medicine; PCP Internal Medicine
DX: R45.1 Restlessness and agitation (principal); E11.9 Type 2 diabetes mellitus without complications; I10 Essential (primary) hypertension; I25.10 Atherosclerotic heart disease of native coronary artery without angina pectoris; Z79.899 Other long term (current) 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; Z79.4 Long term (current) use of insulin
CPT/HCPCS: 82947; 99212; 99284

== ENCOUNTER 2024-11-11 10:23 | Outpatient (AMB) | payer MEDICARE, MEDICAID, SELFPAY ==
[2024-11-11 10:39] VITALS: BP 118/68; PULSE 97; O2SAT 94; BMI 35.4
--- NOTE | 2024-11-11 10:39 | A.OFFPC_ITS ---
Vital Signs 11/11/24 10:39 Height 5 ft 9 in Weight 240 lb BMI 35.4 BP 118/68 Blood Pressure Location Lt brachial Position Sitting Pulse 97 Pulse Source Pulse Oximeter Pulse Oximetry (%) 94 Oxygen Delivery Method Room Air Intake Visit Reasons: DM/HTN Diesel Technician Required: No Accompanied by: Self / Same As Patient Allergies lithium [[place]] Allergy (Severe, Verified 11/11/24 10:50) Toxicity thiothixene Allergy (Severe, Verified 11/11/24 10:50) Swelling amoxicillin Allergy (Mild, Verified 11/11/24 10:50) Nose Bleed benztropine Allergy (Unknown, Verified 11/11/24 10:50) benztropine mesylate- unknown gabapentin [From NEURONTIN] Allergy (Unknown, Verified 11/11/24 10:50) Unknown fluphenazine [From Prolixin] Allergy (Verified 11/11/24 10:50) Unknown barium sulfate [BARIUM SULFATE] Adverse Reaction (Intermediate, Verified 11/11/24 10:50) Nausea and Vomiting haloperidol Adverse Reaction (Intermediate, Verified 11/11/24 10:50) Muscle tension in legs diphenhydramine [From Benadryl] Adverse Reaction (Unknown, Verified 11/11/24 10:50) urinary retention Medication List - Last Reconciled 11/11/24 by SAMARA Aceves acetaminophen (Tylenol) 650 mg PO Q6H PRN albuterol sulfate 90 mcg/actuation 2 puffs inhalation Q6H PRN 30 days alcohol swabs (Alcohol Pads) 1 pad topical TID alum-mag hydroxide-simeth 200-200-20 mg/5 mL 10 mL PO TID PRN aspirin 81 mg PO DAILY@0800 90 days atorvastatin 20 mg PO DAILY@1999 90 days blood sugar diagnostic (GetLikemindsTouch Verio test strips) Use as directed to check blood glucose twice daily. blood-glucose meter (GetLikemindsTouch Verio Flex Meter) Use as directed to check blood glucose twice daily for Type II diabetes mellitus. cholecalciferol (vitamin D3) 25 mcg PO DAILY@0800 30 days clozapine 75 mg (3 x 25 mg) PO DAILY 30 days clozapine 100 mg PO DAILY@1999 empagliflozin (Jardiance) 10 mg PO QAM furosemide (Lasix) 40 mg PO DAILY 90 days glucose (Dex4 Glucose Quick Dissolve) 16 grams (4 x 4 gram) PO Q15M PRN insulin glargine (Lantus Solostar U-100 Insulin) 15 units (0.15 mL) subcut DAILY lancets (OneTouch Delica Plus Lancet) Use as directed to check blood glucose twice daily. linagliptin (Tradjenta) 5 mg PO DAILY 30 days lurasidone 60 mg PO BEDTIME@1800 metoprolol succinate ER 100 mg See Protocol PO DAILY 90 days nicotine (polacrilex) 4 mg buccal Q2H PRN nitroglycerin 0.4 mg sublingual Q5M PRN omeprazole 20 mg PO BID@0630,1630 30 days pen needle, diabetic (BD Erica 2nd Gen Pen Needle) As directed to administer lantus insulin once daily polyethylene glycol 3350 17 grams PO DAILY 30 days sennosides-docusate sodium 8.6-50 mg (Senna Plus) 2 tabs PO DAILY 30 days testosterone 1 packet transdermal DAILY 30 days trazodone 50 mg PO BEDTIME 30 days Tobacco use date assessed: 11/11/24 Dental Screening Dental Screen Date: 11/11/24 Did you have a dental visit in the last 12 months?: No Did you have a dental problem in the last 6 months where you did not have access to dental care?: No Was dental information given to patient?: No HPI DM/HTN HPI Details Patient is a 59-year-old male with significant past medical history of chronic heart failure with reduced ejection fraction, type 2 diabetes with long- term use of insulin, BPH, diabetic neuropathy, occurred, vitamin-D deficiency, JUDY, CAD The patient is presenting today for follow up appointment of chronic conditions. He is accompanied by [facility] staff Patient reports that he is feeling upset today due to having a fight with his roommate, otherwise he is doing okay Reports that he continues to have mild shortness of breath with exertion, reports using his oxygen at nighttime and sometimes during the day as well Patient reports chronic urinary retention, reports that he goes 4-5 times during the day and is urinating 100-200cc each time he goes. He reports that he urinates about 2 times during night He reports that his blood sugar was 165 this morning. The patient does have an appointment with Endocrine tomorrow [facility] Medical History Diabetic neuropathy Type II diabetes with shelter use of insulin JUDY (obstructive sleep apnea) BPH (benign prostatic hyperplasia) Diabetes mellitus Essential hypertension HOCM (hypertrophic obstructive cardiomyopathy) Coronary artery disease Osteoarthritis GERD without esophagitis Vitamin D deficiency Schizoaffective disorder Congestive heart failure COVID-19 Thought disorder Nocturnal hypoxemia Constipation COPD (chronic obstructive pulmonary disease) Smoker Diabetes mellitus Obesity (BMI 30-39.9) Pure hypercholesterolemia Prolonged QT interval Aggression Hypertension CHF (congestive heart failure) Cardiac arrhythmia Myocardial infarction Surgical History History of ankle surgery History of intestinal surgery History of transurethral resection of prostate Family History Father Medical history unknown Mother Medical history unknown Sister Alive and well Social History Household Members: Other Household Members Other:: Roommate Housing: Assisted Living Facility Housing Other:: [facility] Do you presently have visiting nurse or other home services: No Unable to assess alcohol history related to: Unknown Alcohol intake: never Comment: Sitter in room Patient Tobacco Use Status: Current everyday Tobacco user Tobacco use type: Cigarette Cigarette Packs Per Day: 0.5 Cigarettes Per Day: 10 Years Smoked: Many e-Cigarette/Vaping Use: Currently Using Second Hand Smoke Exposure: Yes Substance Use Type: Unknown Advance Directives Date on File: 01/14/24 service: No Current occupational status: disabled Sexual orientation: Straight/Heterosexual Cognitive needs: Yes Hearing needs: No Vision needs: Yes Questionnaire PHQ-9 Over the last 2 weeks, how often have you been bothered by any of the following problems? 1. Little interest or pleasure in doing things: not at all 2. Feeling down, depressed, or hopeless: not at all 3. Trouble falling or staying asleep, or sleeping too much: not at all 4. Feeling tired or having little energy: not at all 5. Poor appetite or overeating: not at all 6. Feeling bad about yourself - or that you are a failure or have let yourself or your family down: not at all 7. Trouble concentrating on things, such as reading the newspaper or watching television: not at all 8. Moving or speaking so slowly that other people could have noticed. Or the opposite - being so fidgety or restless that you have been moving around a lot more than usual: not at all 9. Thoughts that you would be better off or of hurting yourself in some way: not at all Total score: 0 Depression Screening Interpretation: Negative (is on Rx) Depression Screening Done: Yes 95013 - PHQ-9 Billing: Yes Source: Developed by Drs. Ga Richard, Rosio Grigsby, Jose Johnson and colleagues, with an educational lulu from [employer]. Thrive Questionnaire Date Thrive assessed: 11/11/24 I am a: Patient What is your living situation today?: I have a steady place to live Within the past 12 months, did the food you bought not last and you didn't have the money to get more?: Never true Within the past 12 months, did you worry whether your food would run out before you got money to buy more?: Never true Do you have trouble paying for medicines?: No Do you have trouble getting transportation to medical appointments?: No Do you have trouble paying your heating and electricity bill?: No Do you have trouble taking care of your child, family member or friend?: No Do you have trouble with day-to-day activities such as bathing, preparing meals, shopping, managing finances, etc.?: No Are you currently unemployed and looking for a job?: No Are you interested in more education?: No Please select the resources that you would like help with: None Currently or been in a relationship where the following occur: No concerns reported THRIVE Score: 0 AUDIT C Alcohol Use Questionnaire (AUDIT-C) 1. How often do you have a drink containing alcohol?: Monthly or less 2. How many drinks containing alcohol do you have on a typical day when you are drinking?: 1 or 2 3. How often do you have six or more drinks on one occasion?: Never Total Score: 1 Score Reviewed/Action Taken: Yes LINN-7 AMB Questionnaire LINN-7 Date LINN - 7 assessed: 11/11/24 Feeling nervous, anxious, or on edge: 0 = Not at all Not being able to stop or control worryin = Not at all Worrying too much about different things: 0 = Not at all Trouble relaxin = Not at all Being so restless that it is hard to sit still: 0 = Not at all Becoming easily annoyed or irritable: 0 = Not at all Feeling afraid as if something awful might happen: 0 = Not at all Total LINN-7 score (0-4 normal; 5-9 mild; 10-14 moderate; 15-21 severe): 0 Source: Developed by Drs. Ga Richard, Rosio Grigsby, Jose Johnson and colleagues, with an educational lulu from [employer]. LINN-7 Assessment Billing LINN-7 Assessment Tool: LINN-7 Assessment 24685 Review of Systems Const Details: Denies chills, Denies fatigue, Denies fever(s), Denies headache(s) and Denies weakness HEENT Denies change in vision, Denies dizziness, Denies headache(s), Denies hearing loss, Denies nasal congestion, Denies sinus pain, Denies sinus pressure and Denies sore throat Card Denies chest pain, Denies lightheadedness, Denies dyspnea and Denies other (palpitations) Resp Denies cough, mild shortness of breath with exertion and Denies wheezing GI Denies abdominal pain, Denies melena, Denies hematochezia, Denies change in bowel habits, Denies dyspepsia and Denies nausea +On and off chronic constipation Denies hematuria and Denies dysuria Musc Denies abnormal gait, Denies myalgias, +arthralgias (bilateral knees and ankles), Denies numbness and Denies tingling Skin/Breast Denies rash, Denies unusual bruising and Denies wounds Neuro Denies abnormal gait, Denies dizziness, Denies headache(s), Denies memory loss, Denies numbness, Denies Sensory deficit (Neuro), Denies tingling and Denies weakness Psych Denies anxiety, Denies depression and Denies memory loss Endo Denies cold intolerance, Denies fatigue, Denies heat intolerance, Denies polydipsia and Denies polyuria Dilshad/Lymph Denies easy bleeding and Denies easy bruising Aller/Immun Denies wheezing Physical exam (Primary Care) Vital Signs: Last Vital Signs Pulse 97 11/11/24 10:39 BP 118/68 11/11/24 10:39 Pulse Ox 94 11/11/24 10:39 Oxygen Delivery Method Room Air 11/11/24 10:39 BMI result Body Mass Index 35.4 Tobacco/Smoking Status: Tobacco use Status Tobacco use date assessed 11/11/24 11/11/24 10:48 Patient Tobacco Use Status Current everyday Tobacco 11/11/24 10:48 Tobacco use type Cigarette 11/11/24 10:48 e-Cigarette/Vaping Use Currently Using 11/11/24 10:48 PHQ-9: PHQ-9 Score PHQ-9: Total score 0 11/11/24 11:06 Depression Screening Interpretation: Negative (is on Rx) Thrive Assessment: Date of Thrive Assessment Date Thrive assessed 11/11/24 11/11/24 10:48 Currently or been in a relationship where the following occur: No concerns reported Const Other: General: no acute distress, well developed, alert and awake Nutritional Appearance: well nourished Orientation/consciousness: patient oriented x3 HENMT Head: Yes normocephalic and Yes atraumatic Ears: hearing grossly normal bilaterally and TM's normal bilaterally General nose exam: Normal external nose present and Normal nares present Mouth: Normal oral and palatal mucosa present and moist mucous membranes Eyes Pupils: Equal, round and reactive pupils present and Pupil accommodation reflex normal EOM: EOMs intact bilaterally Neck Neck: Yes normal visual inspection, Yes no lymphadenopathy and Yes trachea midline Thyroid: Thyroid normal Lymphatic: no lymphadenopathy noted Resp Effort & Inspection: normal respiratory effort Auscultation: clear to auscultation bilaterally Cardio Rate: regular rate Rhythm: regular rhythm Heart sounds: S1 normal heart sound present, S2 normal heart sound present, no gallops, + systolic murmurs and no rubs GI Palpation (GI): Abdomen large, soft and nontender to palpation Auscultation: normal bowel sounds General: Yes no CVA tenderness Back/Spine/Pelvis Back: no CVA tenderness Cervical Spine: cervical ROM normal and No Cervical spine tenderness Thoracic/Lumbar Spine: No cervical tenderness Skin General: warm and dry. Normal skin color. Normal skin turgor Lesions: no lesions Nails: normal Neuro General: patient oriented x3, gait normal Cranial nerves: Yes Equal, round and reactive pupils present Cognition (Neuro): normal cognition Gait exam (Neuro): Normal gait present Extrem General: Yes normal to inspection, No edema and No calf tenderness Psych Appearance: grossly normal Affect: normal affect Attitude: cooperative Thought process: Normal thought process present Results Reviewed Results Reviewed: Laboratory Tests 07/09/24 09/29/24 10/02/24 10:29 06:27 05:27 WBC 5.2 RBC 3.75 L Hgb 10.2 L Hct 32.5 L Sodium 144 Potassium 3.7 Chloride 111 H Carbon Dioxide 26 BUN 9 Creatinine 1.04 Estimated GFR > 60 Random Glucose 153 H Hgb A1c (Clinic) Urine Color Yellow Urine Appearance Clear Urine pH 5.5 Ur Specific [place] >= 1.030 H Urine Protein 30 (1+) H Urine Glucose (UA) Negative Urine Ketones Negative Urine Blood Negative Urine Nitrite Negative Ur Leukocyte Esterase Negative Urine Creatinine 27.98 Urine Microalbumin 71.0 Microalb/Creat Ratio 253.7 H 10/09/24 11:32 WBC RBC Hgb Hct Sodium Potassium Chloride Carbon Dioxide BUN Creatinine Estimated GFR Random Glucose Hgb A1c (Clinic) 9.1 H Urine Color Urine Appearance Urine pH Ur Specific [place] Urine Protein Urine Glucose (UA) Urine Ketones Urine Blood Urine Nitrite Ur Leukocyte Esterase Urine Creatinine Urine Microalbumin Microalb/Creat Ratio Coding Level of Care Code Est Pt Level 4 (02590) Diagnoses Pure hypercholesterolemia E78.00 Coronary artery disease of [place] artery of [place] heart with stable angina pectoris I25.118 Coronary Disease-Associated Artery/Lesion type: [place] artery [place] vs. transplanted heart: [place] heart Associated angina: with stable angina HOCM (hypertrophic obstructive cardiomyopathy) I42.1 Prolonged QT interval R94.31 Type 2 diabetes mellitus without complication, with long-term current use of insulin E11.9; Z79.4 Diabetes mellitus type: type 2 Diabetes mellitus shelter insulin use: with terminal supervisor use Diabetes mellitus complication status: without complication Essential hypertension I10 Vitamin D deficiency E55.9 Constipation, unspecified constipation type K59.00 Constipation type: unspecified constipation type GERD without esophagitis K21.9 Osteoarthritis of multiple joints, unspecified osteoarthritis type M15.9 Osteoarthritis location: multiple joints Osteoarthritis type: unspecified JUDY (obstructive sleep apnea) G47.33 Benign prostatic hyperplasia with urinary frequency N40.1; R35.0 Lower urinary tract symptom presence: symptoms present Lower urinary tract symptom detail: urinary frequency Hypogonadism in male E29.1 Schizoaffective disorder, bipolar type F25.0 Schizoaffective disorder type: bipolar Smoker F17.200 Obesity (BMI 30-39.9) E66.9 Additional Codes LINN-7 Assessment Billing - LINN-7 Assessment Tool: LINN-7 Assessment 98102 ([id number]) PHQ-9 - 33358 - PHQ-9 Billing: Yes ([id number]) Time Spent (min) 37 Assessment & Plan Assessment & Plan (1) Pure hypercholesterolemia: Code(s): E78.00 - Pure hypercholesterolemia, unspecified Category: Medical Plan: Last time to lipid panel was 06/04/24, his triglycerides 485, total cholesterol 270, discussed with and [facility] staff about trying to obtain these blood work to revaluate his condition. Reports that they will try and get them done soon Reinforced low cholesterol diet Continue Atorvastatin 20 mg QD Also ordered and a new set of labs for his 3 month follow appt (2) Coronary artery disease: Code(s): I25.10 - Atherosclerotic heart disease of [place] coronary artery without angina pectoris Category: Medical Qualifiers: Coronary Disease-Associated Artery/Lesion type: [place] artery [place] vs. transplanted heart: [place] heart Associated angina: with stable angina Qualified Code(s): 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 Plan: Continue Aspirin 81 mg QD Follow up with cardiology as scheduled - (3) HOCM (hypertrophic obstructive cardiomyopathy): Code(s): I42.1 - Obstructive hypertrophic cardiomyopathy Category: Medical Plan: He has a slight outflow tract murmur heard - could be from LVOT obstruction - treatment will reportedly be very limited mainly because of his psychiatric issues, per cardiology Follow up echocardiogram done in October 2023 revealed normal left ventricular cavity size, with severely increased left ventricular wall thickness. The left ventricular systolic function is hyperdynamic and visually estimated ejection fraction is >70%, with (+) dynamic LVOT obstruction noted. No obvious CON seen as before. His resting LVOT peak gradient 40 mm Hg, post valsalva 123 mm Hg - this is significantly worse than previous study. Right ventricular cavity size and systolic function are normal. The left atrium is severely dilated, with mildly elevated right atrial pressure and mild dilatation of the sinuses of Valsalva measuring 4.00 cm and mild dilatation of the ascending aorta measuring 3.9 cm. Holter monitor done previously came out normal with no PVCs or NSVT? Patient also had cardiac catheterization done back in 2016 that showed normal coronary arteries Follow-up with cardiology as scheduled (4) Prolonged QT interval: Code(s): R94.31 - Abnormal electrocardiogram [ECG] [EKG] Category: Medical Plan: Mostly due to his antipsychotics - will need close monitoring with cardiology (5) Diabetes mellitus: Code(s): E11.9 - Type 2 diabetes mellitus without complications Category: Medical Qualifiers: Diabetes mellitus type: type 2 Diabetes mellitus terminal supervisor insulin use: with terminal supervisor use Diabetes mellitus complication status: without complication Qualified Code(s): E11.9 - Type 2 diabetes mellitus without complications; Z79.4 - nursing home (current) use of insulin Plan: His HgbA1c was most recently at 9.1% on 10/09/24 - goal is < 7.0% Reinforced diabetic diet He used to be on Metformin ER 500 mg QD and Tradjenta 5 mg QD but these were stopped a month or so ago when he had JUHI He is currently on Admelog Q AC and HS per sliding scale The patient is going to see endocrine tomorrow as well Will recheck his labs and HgbA1c in 3 months for follow up (6) Essential hypertension: Code(s): I10 - Essential (primary) hypertension Category: Medical Plan: Reinforced low sodium diet - goal is systolic BP of at least 120 to 130 mm or less Continue Metoprolol ER 100 mg QD and Furosemide 40 mg QD (7) Vitamin D deficiency: Code(s): E55.9 - Vitamin D deficiency, unspecified Category: Medical Plan: Continue Vitamin D3 1000 units QD (8) Constipation: Code(s): K59.00 - Constipation, unspecified Category: Medical Qualifiers: Constipation type: unspecified constipation type Qualified Code(s): K59.00 - Constipation, unspecified Plan: Reinforced increased oral fluids and dietary fiber Continue Miralax 17 gm QD, Colace 200 mg BID and Senna Plus 2 tablets QD (9) GERD without esophagitis: Code(s): K21.9 - Gastro-esophageal reflux disease without esophagitis Category: Medical Plan: Dietary restrictions reinforced Continue Omeprazole 20 mg BID and Mylanta 10 ml TID (10) Osteoarthritis: Code(s): M19.90 - Unspecified osteoarthritis, unspecified site Category: Medical Qualifiers: Osteoarthritis location: multiple joints Osteoarthritis type: unspecified Qualified Code(s): M15.9 - Polyosteoarthritis, unspecified Plan: Involving both lower extremities Knee x-rays done last year revealed (+) OA changes in both knees He had some hardware (pin) removed from his right ankle by Dr. Arrieta in 10/2017 Ankle x-rays done last year also revealed (+) osteoarthritis changes X-rays of both feet done previously showed (+) OA changes in both feet as well Follow up with orthopedics as scheduled He was also advised again of the option of referral to Podiatry for further management if his foot symptoms persist or get worse (11) JUDY (obstructive sleep apnea): Comment: Polysomnogram study in 2021 was negative for sleep apnea but he did have nocturnal hypoxemia. Code(s): G47.33 - Obstructive sleep apnea (adult) (pediatric) Category: Medical Plan: Patient is reminded to continue using his Oxygen when sleeping at night DAILY; he only needs to use it during the day as needed (if he feels SOB) Follow up with Sleep Medicine and with Pulmonary Medicine as scheduled (12) BPH (benign prostatic hyperplasia): Code(s): N40.0 - Benign prostatic hyperplasia without lower urinary tract symptoms Category: Medical Qualifiers: Lower urinary tract symptom presence: symptoms present Lower urinary tract symptom detail: urinary frequency Qualified Code(s): N40.1 - Benign prostatic hyperplasia with lower urinary tract symptoms; R35.0 - Frequency of micturition Plan: Continue Tamsulosin 0.4 mg Q HS Follow up with urology as scheduled (13) Hypogonadism in male: Comment: Topical testosterone Code(s): E29.1 - Testicular hypofunction Category: Medical Plan: Continue Testosterone (Androgel) 1% 2 packets transdermally OQ as instructed Follow up with urology as scheduled (14) Schizoaffective disorder: Code(s): F25.9 - Schizoaffective disorder, unspecified Category: Medical Qualifiers: Schizoaffective disorder type: bipolar Qualified Code(s): F25.0 - Schizoaffective disorder, bipolar type Plan: Continue Clozaril 75 mg QD and 100 mg Q HS and Latuda 60 mg QAM He is also on Trazodone 50 mg Q HS for sleep Follow up with psychiatry (Freeman Rodríguez) as scheduled (15) Smoker: Comment: Navid lives in a [place] [facility] where most of the residents smoke. He states that he ends up smoking due to peer pressure. but he smokes only a few cigarettes daily. Currently is using 5 cigarettes a day. Code(s): F17.200 - Nicotine dependence, unspecified, uncomplicated Category: Social Hx Plan: Counseled again on smoking cessation (16) Obesity (BMI 30-39.9): Code(s): E66.9 - Obesity, unspecified Category: Medical Plan: Reinforced diet; exercise and weight appear to be unrealistic expectations in patient at this time due to his mutliple physical and psychiatric comorbidities Plan Patient to return in 3 months new labs were ordered. Encourage patient and [facility] staff to please get labs done a week before appointment date Orders: Orders Lipid Panel 3 Months E11.9 - Type 2 diabetes mellitus without complications, E55.9 - Vitamin D deficiency, unspecified, E66.9 - Obesity, unspecified, E78.00 - Pure hypercholesterolemia, unspecified, I25.118 - Atherosclerotic heart di sease of [place] coronary artery with other forms of angina pectoris, I50.22 - Chronic systolic (congestive) heart failure, K21.9 - Gastro-esophageal reflux disease without esophagitis, Z79.4 - terminal supervisor (current) use of insulin Comprehensive [place]. Panel Fast 3 Months E11.9 - Type 2 diabetes mellitus without complications, E55.9 - Vitamin D deficiency, unspecified, E66.9 - Obesity, unspecified, E78.00 - Pure hypercholesterolemia, unspecified, 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, I50.22 - Chronic systolic (congestive) heart failure, K21.9 - Gastro-esophageal reflux disease without esophagitis, Z79.4 - terminal supervisor (current) use of insulin Hemoglobin A1c 3 Months E11.9 - Type 2 diabetes mellitus without complications, E55.9 - Vitamin D deficiency, unspecified, E66.9 - Obesity, unspecified, E78.00 - Pure hypercholesterolemia, unspecified, I25.118 - Atherosclerotic heart dise ase of [place] coronary artery with other forms of angina pectoris, I50.22 - Chronic systolic (congestive) heart failure, K21.9 - Gastro-esophageal reflux disease without esophagitis, Z79.4 - terminal supervisor (current) use of insulin Vitamin D 25-OH Total 3 Months E11.9 - Type 2 diabetes mellitus without complications, E55.9 - Vitamin D deficiency, unspecified, E66.9 - Obesity, unspecified, E78.00 - Pure hypercholesterolemia, unspecified, 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, I50.22 - Chronic systolic (congestive) heart failure, K21.9 - Gastro-esophageal reflux disease without esophagitis, Z79.4 - nursing home (current) use of insulin UA CC w/rflx Micro + Cult 3 Months E11.9 - Type 2 diabetes mellitus without complications, E55.9 - Vitamin D deficiency, unspecified, E66.9 - Obesity, unspecified, E78.00 - Pure hypercholesterolemia, unspecified, 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, I50.22 - Chronic systolic (congestive) heart failure, K21.9 - Gastro-esophageal reflux disease without esophagitis, Z79.4 - terminal supervisor (current) use of insulin Complete Blood Count Auto Diff 3 Months E11.9 - Type 2 diabetes mellitus without complications, E55.9 - Vitamin D deficiency, unspecified, E66.9 - Obesity, unspecified, E78.00 - Pure hypercholesterolemia, unspecified, 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, I50.22 - Chronic systolic (congestive) heart failure, K21.9 - Gastro-esophageal reflux disease without esophagitis, Z79.4 - terminal supervisor (current) use of insulin TSH reflex Free T4 3 Months E11.9 - Type 2 diabetes mellitus without complications, E55.9 - Vitamin D deficiency, unspecified, E66.9 - Obesity, unspecified, E78.00 - Pure hypercholesterolemia, unspecified, 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, I50.22 - Chronic systolic (congestive) heart failure, K21.9 - Gastro-esophageal reflux disease without esophagitis, Z79.4 - terminal supervisor (current) use of insulin Medications: New nitroglycerin do not exceed 3 doses per episode 0.4 mg sublingual Q5M PRN 14 tabs 0RF Chest Pain acetaminophen (Tylenol) 650 mg (2 x 325 mg) PO Q6H PRN 60 tabs 2RF Pain (Scale Score 1-3) Refilled atorvastatin 20 mg PO DAILY@1999 90 tabs 0RF 90 days empagliflozin (Jardiance) 10 mg PO QAM 90 tabs 0RF glucose (Dex4 Glucose Quick Dissolve) until glucose is over 70 16 grams (4 x 4 gram) PO Q15M PRN 10 tabs 3RF hypoglycemia lancets (GetLikemindsTouch Delica Plus Lancet) Use as directed to check blood glucose twice daily. 100 ea 5RF E11.9 - Type 2 diabetes mellitus without complications, Z79.4 - terminal supervisor (current) use of insulin blood sugar diagnostic (OneTouch Verio test strips) Use as directed to check blood glucose twice daily. 100 ea 5RF E11.9 - Type 2 diabetes mellitus without complications, Z79.4 - terminal supervisor (current) use of insulin albuterol sulfate 90 mcg/actuation 2 puffs inhalation Q6H PRN 1 inhaler 0RF Shortness Of Breath Or Wheezing 30 days aspirin 81 mg PO DAILY@0800 90 tabs 3RF 90 days cholecalciferol (vitamin D3) 25 mcg PO DAILY@0800 30 tabs 0RF 30 days furosemide (Lasix) 40 mg PO DAILY 90 tabs 0RF 90 days insulin glargine (Lantus Solostar U-100 Insulin) 15 units (0.15 mL) subcut DAILY 15 mL 5RF linagliptin (Tradjenta) 5 mg PO DAILY 30 tabs 0RF 30 days metoprolol succinate ER 100 mg See Protocol PO DAILY 90 tabs 1RF 90 days omeprazole 20 mg PO BID@0630,1630 60 caps 0RF 30 days pen needle, diabetic (BD Erica 2nd Gen Pen Needle) As directed to administer lantus insulin once daily 100 ea 11RF polyethylene glycol 3350 17 grams PO DAILY 30 ea 0RF 30 days sennosides-docusate sodium 8.6-50 mg (Senna Plus) 2 tabs PO DAILY 60 tabs 0RF 30 days trazodone 50 mg PO BEDTIME 30 tabs 0RF 30 days blood-glucose meter (OneTouch Verio Flex Meter) Use as directed to check blood glucose twice daily for Type II diabetes mellitus. 1 ea 0RF E11.9 - Type 2 diabetes mellitus without complications, Z79.4 - nursing home (current) use of insulin
--- OUTSIDE RECORDS SUMMARY | 2024-11-11 11:11 | XMS_ITS | Clinical Summary ---
Author Organization [facility] Address [address] [address] [address] [place] [address] Phone Care Team Providers Care Flatbed Owner Operator Name Role Phone Regan Hogue MD Primary Care Provider [phone]- [phone] Allergies Active Allergy Reactions Criticality Noted Date Comments Diphenhydramine Other (see comments) 12/19/2023 Haloperidol Other (see comments) 12/19/2023 [place] Other (see comments) 12/19/2023 Thiothixene (Tiotixene) Other [...] Schizoaffective disorder, not otherwise specifie d 12/20/2023 [place] adverse reaction <Sequela> 12/20/2023 Acute nontraumatic kidney injury 12/20/2023 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
== END 2024-11-11 11:21 | disposition home or self-care (01) ==
PROVIDERS: PCP Internal Medicine
DX: I25.118 Atherosclerotic heart disease of native coronary artery with other forms of angina pectoris (principal); I42.1 Obstructive hypertrophic cardiomyopathy; E11.9 Type 2 diabetes mellitus without complications; Z79.4 Long term (current) use of insulin; F25.0 Schizoaffective disorder, bipolar type; R94.31 Abnormal electrocardiogram [ECG] [EKG]; E78.00 Pure hypercholesterolemia, unspecified; I10 Essential (primary) hypertension; E55.9 Vitamin D deficiency, unspecified; K59.00 Constipation, unspecified; K21.9 Gastro-esophageal reflux disease without esophagitis; M15.9 Polyosteoarthritis, unspecified

== ENCOUNTER → 2024-11-11 10:23 | Outpatient (BNVA) | payer MEDICARE, MEDICAID, SELFPAY | PROVIDERS: PCP Internal Medicine | DX: E78.00 Pure hypercholesterolemia, unspecified (principal); I25.118 Atherosclerotic heart disease of native coronary artery with other forms of angina pectoris; I42.1 Obstructive hypertrophic cardiomyopathy; R94.31 Abnormal electrocardiogram [ECG] [EKG]; E11.9 Type 2 diabetes mellitus without complications; Z79.4 Long term (current) use of insulin; I10 Essential (primary) hypertension; E55.9 Vitamin D deficiency, unspecified; K59.00 Constipation, unspecified; K21.9 Gastro-esophageal reflux disease without esophagitis; M15.9 Polyosteoarthritis, unspecified; G47.33 Obstructive sleep apnea (adult) (pediatric); N40.1 Benign prostatic hyperplasia with lower urinary tract symptoms; R35.0 Frequency of micturition; F25.0 Schizoaffective disorder, bipolar type; F17.200 Nicotine dependence, unspecified, uncomplicated; E66.9 Obesity, unspecified; Z68.35 Body mass index [BMI] 35.0-35.9, adult; Z71.6 Tobacco abuse counseling; Z71.3 Dietary counseling and surveillance | CPT/HCPCS: 96127; 99212 ==

== ENCOUNTER 2024-11-12 10:54 | Outpatient (AMB) | payer MEDICARE, MEDICAID, SELFPAY ==
[2024-11-12 11:04] VITALS: BMI 34.6
--- NOTE | 2024-11-12 11:04 | A.OFFVIS_ITS ---
VS Expanded 11/12/24 11:04 11/17/24 14:33 Height 5 ft 9 in 5 ft 9 in Weight 234 lb 9.149 oz 234 lb 5 oz BMI 34.6 34.6 Intake Visit Reasons: T2DM w hyperglycemia/Confirmed Allergies lithium [[place]] Allergy (Severe, Verified 11/11/24 10:50) Toxicity thiothixene Allergy (Severe, Verified 11/11/24 10:50) Swelling amoxicillin Allergy (Mild, Verified 11/11/24 10:50) Nose Bleed benztropine Allergy (Unknown, Verified 11/11/24 10:50) benztropine mesylate- unknown gabapentin [From NEURONTIN] Allergy (Unknown, Verified 11/11/24 10:50) Unknown fluphenazine [From Prolixin] Allergy (Verified 11/11/24 10:50) Unknown barium sulfate [BARIUM SULFATE] Adverse Reaction (Intermediate, Verified 11/11/24 10:50) Nausea and Vomiting haloperidol Adverse Reaction (Intermediate, Verified 11/11/24 10:50) Muscle tension in legs diphenhydramine [From Benadryl] Adverse Reaction (Unknown, Verified 11/11/24 10:50) urinary retention Nutrition Presentation Details: Pt presents for MNT for hyperglycemia Pt did not want to give details regarding his typical routine. Acknowledges havi ng sweets at night before bedtime. Food frequency fruits: 0/d veg: daily dairy 2-3 x/d starches > 25 fish : not including sweets: daily 2+ beverages:sugary beverages++ physical activity: -- etoh-- smoking-- BS Monitoring Most Recent Diabetes Results: No Data to Display RCF-Grrjvtm-Vq.Jeor Equation Height: 5 ft 9 in Weight: 234 lb 5 oz Resting Metabolic Rate: 1866.94 Calculated Activity Level: Sedentary Calories Needed to Maintain Weight: 2240.33 Diagnosis Nutrition problem #1: excessive oral intake As related to (etiology) #1: diagnosis As evidenced by (sign/symptom) #1: food recall [facility] Medical History Diabetic neuropathy Type II diabetes with usp use of insulin JUDY (obstructive sleep apnea) BPH (benign prostatic hyperplasia) Diabetes mellitus Essential hypertension HOCM (hypertrophic obstructive cardiomyopathy) Coronary artery disease Osteoarthritis GERD without esophagitis Vitamin D deficiency Schizoaffective disorder Congestive heart failure COVID-19 Thought disorder Nocturnal hypoxemia Constipation COPD (chronic obstructive pulmonary disease) Smoker Diabetes mellitus Obesity (BMI 30-39.9) Pure hypercholesterolemia Prolonged QT interval Aggression Hypertension CHF (congestive heart failure) Cardiac arrhythmia Myocardial infarction Surgical History History of ankle surgery History of intestinal surgery History of transurethral resection of prostate Family History Father Medical history unknown Mother Medical history unknown Sister Alive and well Social History Household Members: Other Household Members Other:: Roommate Housing: Assisted Living Facility Housing Other:: [facility] Do you presently have visiting nurse or other home services: No Unable to assess alcohol history related to: Unknown Alcohol intake: never Comment: Sitter in room Patient Tobacco Use Status: Current everyday Tobacco user Tobacco use type: Cigarette Cigarette Packs Per Day: 0.5 Cigarettes Per Day: 10 Years Smoked: Many e-Cigarette/Vaping Use: Currently Using Second Hand Smoke Exposure: Yes Substance Use Type: Unknown Advance Directives Date on File: 01/14/24 service: No Current occupational status: disabled Sexual orientation: Straight/Heterosexual Cognitive needs: Yes Hearing needs: No Vision needs: Yes Assessment & Plan Assessment & Plan (1) Type II diabetes with termite technician use of insulin: Code(s): E11.9 - Type 2 diabetes mellitus without complications; Z79.4 - termite control servicer (current) use of insulin Category: Medical Plan: Wt: 106 Kg ( 12/02 ) Est kcal needs as per MSJ: 2240 (40% carb, 30% protein/fat) Est fluid needs as per 25-30 ml/d: 3200 Est prot per day as per 1 g/kg bw: 106 Recommend fiber intake : 8-10 g per day and gradually increase to 25-28 g per day for women and 35-38 g for men or as tolerated Recommend sodium intake per day : less than 1500 mg less than 2000 mg Educated patient on: ( R = reviewed V = verbalizes understanding N/R = needs review N/A = not applicable * Food sources of carbohydrate, adequate serving sizes and its role in various health conditions: R * Differences between complex carbohydrates a simple carbohydrates, role of fiber in diet: R V N/R * Lean protein sources of foods: R V NR * Differences between types of fats and role in diet (mono on saturated fat fatty acids, saturated fatty acids, trans fats): R V N/R * Food sources of sodium in salt and healthy modifications for heart health in kidney health: R V R/V * Vitamins and minerals: R V N/R * Healthy plate method concept: R V N/R * Physical activity: Benefits a precaution: R V N/R * Hypoglycemia protocol (rule of 15): R V N/R * Dietary prevention of Hyperglycemia: R V R/V Patient Instructions: Switch to light juices (light cranberry juice, 50% less sugar orange juice- see list of low sugar options ) have a yogurt with fruit as bedtime snack Coding Level of Care Code Nutr Indiv Intake (11167) Diagnoses Type II diabetes with termite technician use of insulin E11.9; Z79.4 Time Spent (min) 30
--- OUTSIDE RECORDS SUMMARY | 2024-11-12 12:13 | XMS_ITS | Clinical Summary ---
Author Organization [facility] Address [address] [facility] [address] [place] [address] Phone Care Team Providers Care Carton Stamper Name Role Phone Regan Hogue MD Primary Care Provider [phone]- [phone] Allergies Active Allergy Reactions Criticality Noted Date Comments Diphenhydramine Other (see comments) 12/19/2023 Haloperidol Other (see comments) 12/19/2023 [place] Other (see comments) 12/19/2023 Thiothixene (Tiotixene) Other [...] Schizoaffective disorder, not otherwise specifie d 12/20/2023 [place] adverse reaction <Sequela> 12/20/2023 Acute nontraumatic kidney injury 12/20/2023 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
[2024-11-17 14:33] VITALS: BMI 34.6
== END 2024-11-12 11:20 | disposition home or self-care (01) ==
PROVIDERS: PCP Internal Medicine; Visit Provider Dietitian, Registered
DX: E11.9 Type 2 diabetes mellitus without complications (principal); Z79.4 Long term (current) use of insulin

== ENCOUNTER → 2024-11-12 10:54 | Outpatient (BNVA) | payer MEDICARE, MEDICAID, SELFPAY | PROVIDERS: PCP Internal Medicine; Visit Provider Dietitian, Registered | DX: E11.9 Type 2 diabetes mellitus without complications (principal); Z79.4 Long term (current) use of insulin | CPT/HCPCS: 97802 ==

== ENCOUNTER 2024-11-20 09:13 | Inpatient (IN) | payer MEDICARE, MEDICAID, SELFPAY ==
--- NOTE | ~2024-11-20 | XR_ITS ---
CLINICAL HISTORY: rule out obstruction 1 view abdomen Comparison: CR/SR - XR KUB - 09/30/24 06:07 EST Findings: No pneumoperitoneum or pneumatosis. No abnormal calcifications. No acute fractures. Large volume of stool within the colon. Normal bowel-gas pattern. IMPRESSION: The bowel gas pattern is within normal limits This document has been electronically signed by: Randall Welch MD on 11/21/2024 18:37:32
[2024-11-20 09:18] VITALS: BP 144/84; PULSE 90; O2SAT 96
[2024-11-20 09:24] VITALS: BP 128/74; PULSE 87; RESP 20; TEMP 36.9; O2SAT 94; BMI 34.9
--- NOTE | 2024-11-20 09:37 | PC.NURSE ---
pt is being changed over into [facility] attire
--- NOTE | 2024-11-20 09:43 | ED.GENADULT ---
HPI - General Adult General Chief complaint: Psychiatric Symptoms Stated complaint: DIZZY,LOSS OF ROSITA X4D,BS 301,FROM [facility] HOME PER EMS Time Seen by Provider: 11/20/24 09:36 Source: patient Mode of arrival: EMS Limitations: no limitations History of Present Illness ED Provider: Dr. Alexys Anthony HPI narrative: 59 year old male patient with a history of diabetes, HTN, BPH, hyperterophic cardiomyopathy, CAD, heart failure, and schizoaffective disorder living in a retirement, presenting to the emergency department today for evaluation of loss of appetite, with very little food and fluid intake over the last 2 days, depression and passive suicidal ideation with no plan or intention to harm himself. The patient told me the following: ?I am not in good shape. I am homebound. This is the end of my life.?. The patient states he does not have a plan to hurt himself. He states he did try to kill himself 10 years ago by stabbing his abdomen with a fork. Related Data Home Medications ?Medication ?Instructions ?Recorded ?Confirmed clozapine 100 mg tablet 100 mg PO DAILY@199904/28/24 11/11/24 aluminum-mag hydroxide-simethicone 10 ml PO TID PRN Indigestion 05/27/24 11/11/24 200 mg-200 mg-20 mg/5 mL oral susp lurasidone 60 mg tablet 60 mg PO BEDTIME@1800 05/27/24 11/11/24 nicotine (polacrilex) 4 mg buccal 4 mg buccal Q2H PRN Smoking 05/27/24 11/11/24 lozenge Cessation Previous Rx's ?Medication ?Instructions ?Recorded clozapine 25 mg tablet 75 mg (3 x 25 mg) PO DAILY 30 days 02/05/24 #90 tabs testosterone 1 % (50 mg/5 gram) 1 packet transdermal DAILY 30 days 07/02/24 transdermal gel packet #150 grams alcohol swabs (Alcohol Pads) 1 pad topical TID #100 ea 10/17/24 acetaminophen 325 mg tablet 650 mg (2 x 325 mg) PO Q6H PRN 11/11/24 (Tylenol) Pain (Scale Score 1-3) #60 tabs albuterol sulfate 90 mcg/actuation 2 puff inhalation Q6H PRN 11/11/24 aerosol inhaler Shortness Of Breath Or Wheezing 30 days #1 inhaler aspirin 81 mg tablet,delayed 81 mg PO DAILY@0800 90 days #90 11/11/24 release tabs atorvastatin 20 mg tablet 20 mg PO DAILY@1999 90 days #90 11/11/24 tabs blood sugar diagnostic ([facility] #100 ea 11/11/24 Verio test strips) blood-glucose meter ([facility] #1 ea 11/11/24 Verio Flex Meter) cholecalciferol (vitamin D3) 25 25 mcg PO DAILY@0800 30 days #30 11/11/24 mcg (1,000 unit) tablet tabs empagliflozin 10 mg tablet 10 mg PO QAM #90 tabs 11/11/24 (Jardiance) furosemide 40 mg tablet (Lasix) 40 mg PO DAILY 90 days #90 tabs 11/11/24 glucose 4 gram chewable tablet 16 g (4 x 4 gram) PO Q15M PRN 11/11/24 (Dex4 Glucose Quick Dissolve) hypoglycemia #10 tabs insulin glargine 100 unit/mL (3 15 unit (0.15 mL) subcut DAILY #15 11/11/24 mL) subcutaneous pen (Lantus mL Solostar U-100 Insulin) lancets 33 gauge ([facility] Delica #100 ea 11/11/24 Plus Lancet) linagliptin 5 mg tablet (Tradjenta) 5 mg PO DAILY 30 days #30 tabs 11/11/24 metoprolol succinate 100 mg 100 mg PO DAILY 90 days #90 tabs 11/11/24 tablet,extended release 24 hr nitroglycerin 0.4 mg sublingual 0.4 mg sublingual Q5M PRN Chest 11/11/24 tablet Pain #14 tabs omeprazole 20 mg capsule,delayed 20 mg PO BID@0630,1630 30 days #60 11/11/24 release caps pen needle, diabetic 32 gauge x #100 ea 11/11/24 (BD Erica 2nd Gen Pen Needle) polyethylene glycol 3350 17 gram 17 g PO DAILY 30 days #30 ea 11/11/24 oral powder packet sennosides 8.6 mg-docusate sodium 2 tab PO DAILY 30 days #60 tabs 11/11/24 50 mg tablet (Senna Plus) trazodone 50 mg tablet 50 mg PO BEDTIME 30 days #30 tabs 11/11/24 Allergies Allergy/AdvReac Type Severity Reaction Status Date / Time lithium [[place]] Allergy Severe Toxicity Verified 11/20/24 09:27 thiothixene Allergy Severe Swelling Verified 11/20/24 09:27 amoxicillin Allergy Mild Nose Bleed Verified 11/20/24 09:27 benztropine Allergy Unknown benztropine Verified 11/20/24 09:27 mesylate- unknown gabapentin [From NEURONTIN] Allergy Unknown Unknown Verified 11/20/24 09:27 fluphenazine [From Prolixin] Allergy Unknown Verified 11/20/24 09:27 barium sulfate AdvReac Intermediate Nausea and Verified 11/20/24 09:27 [BARIUM SULFATE] Vomiting haloperidol AdvReac Intermediate Muscle Verified 11/20/24 09:27 tension in legs diphenhydramine AdvReac Unknown urinary Verified 11/20/24 09:27 [From Benadryl] retention Review of Systems Review of Systems: Yes all other systems are reviewed and are negative [facility] Past Medical History [facility] Narrative: Social history: Patient lives in a retirement. He denies tobacco, alcohol and drug use.[id number] Medical History Diabetic neuropathy Type II diabetes with custodial use of insulin JUDY (obstructive sleep apnea) BPH (benign prostatic hyperplasia) Diabetes mellitus Essential hypertension HOCM (hypertrophic obstructive cardiomyopathy) Coronary artery disease Osteoarthritis GERD without esophagitis Vitamin D deficiency Schizoaffective disorder Congestive heart failure COVID-19 Thought disorder Nocturnal hypoxemia Constipation COPD (chronic obstructive pulmonary disease) Smoker Diabetes mellitus Obesity (BMI 30-39.9) Pure hypercholesterolemia Prolonged QT interval Aggression Hypertension CHF (congestive heart failure) Cardiac arrhythmia Myocardial infarction Surgical History History of ankle surgery History of intestinal surgery History of transurethral resection of prostate Family History Family History Father Medical history unknown Mother Medical history unknown Sister Alive and well Social History Social History Household Members: Other Household Members Other:: Roommate Housing: Assisted Living Facility Housing Other:: [facility] Do you presently have visiting nurse or other home services: No Unable to assess alcohol history related to: Unknown Alcohol intake: current Alcohol intake frequency: a few times a month Alcohol type: beer Comment: Sitter in room Patient Tobacco Use Status: Current everyday Tobacco user Tobacco use type: Cigarette Cigarette Packs Per Day: 0.5 Cigarettes Per Day: 10 Years Smoked: Many Smoked in Last 30 Days: No e-Cigarette/Vaping Use: Currently Using Second Hand Smoke Exposure: Yes Use of substances other than those prescribed or required for medical reasons: No Substance Use Type: Unknown Advance Directives: Yes Advance Directives on File: Yes Advance Directives Date on File: 01/14/24 Do you have a plan to hurt others: No Plan service: No Current occupational status: disabled Sexual orientation: Straight/Heterosexual Cognitive needs: Yes Hearing needs: No Vision needs: Yes Physical Exam ED Vital Signs: Vital Signs - 24 hr 11/20/24 09:24 11/20/24 11:24 Temperature 98.5 F 98.2 F Pulse Rate 87 82 Respiratory Rate 20 20 Blood Pressure 128/74 104/70 Pulse Oximetry 94 94 Oxygen Delivery Method Room Air Room Air BMI result Body Mass Index 34.9 Vital signs were normal Exam: General: Awake, alert in no distress Head: Normocephalic, atraumatic EENT: PERRL, Lids normal, sclera normal, conjunctiva normal, nose normal , ears normal, throat without erythema or exudates Neck: Supple, no adenopathy Lung: breath sounds symmetric, no wheezing, rales or rhonchi Chest: symmetric movement, nontender Heart: regular rate and rhythm, normal S1, S2 , 2/6 systolic murmur best heard at the left lower sternal border Abdomen: soft, non-tender, nondistended, normal bowel sounds Back: no vertebral tenderness, no CVAT Extremities: no deformities, moves all extremities symmetrically Neuro: Awake, alert, oriented, normal speech, cranial nerves intact, moves all extremities symmetrically Psych: Pleasant, cooperative Medications Administered Generic Name Dose Route Start Last Admin Trade Name Freq PRN Reason Stop Dose Admin Sodium Chloride 1,000 mls @ 999 mls/hr 11/20/24 11:11 11/20/24 11:27 Ns IV 11/20/24 12:11 999 mls/hr .Q1H1M STA Administration Potassium Chloride 10 meq in 100 mls @ 100 mls/hr 11/20/24 11:15 11/20/24 11:26 Potassium Chloride/H20 IV 11/20/24 13:14 100 mls/hr Q1H OZZY Administration Discontinued Medications Generic Name Dose Route Start Last Admin Trade Name Chelsy PRN Reason Stop Dose Admin Potassium Chloride 80 meq 11/20/24 11:11 11/20/24 11:26 Potassium Chloride Packet 20 Meq Packet PO 11/20/24 11:12 80 meq ONCE ONE Administration Medical Decision Making Medical Decision Making MDM Narrative: 59 year old male patient with a history of diabetes, HTN, BPH, hyperterophic cardiomyopathy, CAD, heart failure, and schizoaffective disorder living in a retirement, presenting to the emergency department today for evaluation of loss of appetite, with very little food and fluid intake over the last 2 days, depression and passive suicidal ideation with no plan or intention to harm himself. Vital signs were normal. Heart exam did reveal a 2/6 systolic murmur best heard at the information or border, otherwise exam was unremarkable. Differential diagnosis: ?Includes but is not limited to depression, anxiety, suicidal ideation, electrolyte abnormalities, anemia Course: 11:23 My interpretation patient's laboratory evaluation is as follows: Chronic normocytic anemia with an H&H of 11.2 and 37.6. Low platelet count a [id number] low values in the past. Potassium was low 2.3. BUN and creatinine were elevated 39 and 2.10. These changes are new compared to laboratory evaluation from 09/19/2025 with a potassium was 3.8, BUN was 15 and creatinine was 1.15. Glucose was elevated 273. LFTs were normal. Magnesium, are pending. CK and urinalysis are pending. The patient's laboratory evaluation is most likely secondary to acute kidney/prerenal injury from the patient not eating and drinking. Patient's low potassium he was also probably related to him not eating and drinking over the last 2 days. Given this acute medical condition and I do not think that the patient is medically cleared for psychiatric evaluation at this time and will need to be admitted for further treatment. I did order potassium chloride 10 mEq IV x2, potassium chloride 80 mEq orally. Patient was also ordered to get normal saline IV x1 L. I did discuss over tiger text, the patient's presentation and electrolyte abnormalities with the covering hospitalist, Dr. Boo and the patient will be admitted to the hospitalist service for further management. Given the patient's passive SI, he will need one-to-one observation. The patient did have a 2/6 systolic murmur and did have an echocardiogram on 09/26/2024 which demonstrated left ventricular hypertrophy with an EF 65-70% and mild mitral valve regurgitation. Admission/Observation Consideration of admission/observation: Escalation of care including admission/observation considered (Yes) Consult Healthcare Provider Management of the patient was discussed with: Hospitalist (Dr Boo) Lab Data MDM Lab Attestation statement: I reviewed the patient's lab results. 11/20/24 10:21 11/20/24 10:21 Labs: Lab Results 11/20/24 Range/Units 10:21 WBC 7.6 (4.8-10.8) X10*3/uL RBC 4.69 D (4.60-5.80) X10*6/uL Hgb 12.5 L D (14.0-18.0) g/dl Hct 37.6 L (42.0-52.0) % MCV 80.2 (80.0-98.0) fL MCH 26.7 L (27.0-33.0) pg MCHC 33.2 (31.0-36.0) g/dl RDW 15.0 (11.0-16.0) % Plt Count 154 L (160-400) X10*3/uL MPV 12.1 (9.4-12.4) fL Immature Gran % (Auto) 0.3 (0.0-0.4) % Neut % (Auto) 77.4 H (45-73) % Lymph % (Auto) 12.0 L (20-40) % [place] % (Auto) 9.0 (2-11) % Eos % (Auto) 0.8 (0-4) % Baso % (Auto) 0.5 (0-2) % Lymph # (Auto) 0.9 L (1.2-4.9) X10*3/uL [place] # (Auto) 0.7 (0.1-1.2) X10*3/uL Eos # (Auto) 0.1 (0.0-0.4) X10*3/uL Baso # (Auto) 0.0 (0.0-0.2) X10*3/uL Abs Immat Gran (auto) 0.02 (0.00-0.03) X10*3/uL Absolute Neuts (auto) 5.9 (2.0-8.3) x10*3/uL Absolute Nucleated RBC 0.000 (0.0-0.012) X10*3/uL Nucleated RBC % (auto) 0.0 (0.0-0.2) /100WBC Sodium 141 (135-145) mmol/L Potassium 2.3 L* D (3.3-5.1) mmol/L Chloride 98 (96-108) mmol/L Carbon Dioxide 28 (22-29) mmol/L Anion Gap 17 (12-20) BUN 39 H (9-16) mg/dL Creatinine 2.10 H (0.5-1.4) mg/dL Estim Creat Clear Calc 43.7 Estimated GFR 32 Random Glucose 273 H (60-115) mg/dL Calcium 9.9 D (8.4-10.2) mg/dL Magnesium 2.3 (1.6-2.6) mg/dL Total Bilirubin 0.4 (0.0-1.0) mg/dL AST 27 (5-37) U/L ALT 23 (0-40) U/L Alkaline Phosphatase 79 (39-117) U/L Total Protein 7.5 (6.5-8.0) g/dL Albumin 4.2 (3.5-5.0) g/dL Ethyl Alcohol < 10 mg/dL Independent Interpretation I performed an independent interpretation of an: EKG Interpretation: My independent interpretation patient's 12 EKG done at 10:56 hours is as follows: Sinus rhythm with a rate of 85, first-degree able you block with AR interval of 302 milliseconds, slurred asked to leave 1, 2, aVL, V4 and V6, no ST segment elevation, no PACs, no PVCs. Compared to EKG dated 09/29/2024 the slurred S waves were present on the previous EKG. External Record Review External record reviewed: Inpatient record Chronic Conditions Patient?s care impacted by: Diabetes Critical Care Time Critical Care Time Critical Care Time: Yes Total Critical Care Time: 35 Attestation: Critical Care: The patient was critically ill with a high probability of imminent or life threatening deterioration. I spent greater than 30 minutes of discontinuous time evaluating the patient,delivering critical care at the bedside, discussing and evaluating pertinent data with consultants. Critical care time does not include time spent performing separately billable procedures or teaching. Total time spent performing critical care was 35 minutes. Discharge Plan Discharge Clinical Impression: Anorexia mentalis, Depression, Hypokalemia, Volume depletion, Acute kidney injury, Passive suicidal ideations Patient Disposition: Admitted As Inpatient Interventions: [place]-Suicide Risk Severity Scale Last Done: 11/20/24 09:35 Print Language: Polish
--- OUTSIDE RECORDS SUMMARY | 2024-11-20 10:03 | XMS_ITS | Encounter Summary ---
Author Organization [facility] Address [address] [place] [address] Care Team Providers Care Senior Ssis Developer Name Role Phone Regan Hogue MD Primary Care Provider [phone] Encounter Details Date Type Department Care Team (Late st Contact Info) Description 10/07/[address] [facility] - Main Lab [address] [facility] [employer] [place] [address] Freeman Cerna MD [address] Other moth exterminator (current) 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 Social History Tobacco Use Types Packs/Day Years Used Date Smoking Tobacco: Never Assessed Sex and Gender Information Value Date Recorded Sex Assigned at Not on file Legal Sex Male 11:44 PM EST Gender Identity Not on file Sexual Orientation Not on file documented as of this encounter Plan of Treatment Upcoming Encounters Date Type Department Care Team (Late st Contact Info) Description 01/20/2025 9:45 AM EDT Consult Orthopedic Surgery - [address] [phone] Juventino Schneider DPM [address] [address] documented as of this encounter Procedures Procedure Name Priority Date/Time Associated Diagnosis Comments CBC WITH AUTO DIFFERENTIAL Routine 10/07/2024 7:40 AM EST Other moth exterminator (current) 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 CBC AND DIFFERENTIAL Routine 10/07/2024 7:40 AM EST Other moth exterminator (current) 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 documented in this encounter Results * (ABNORMAL) CBC auto differential (10/07/2024 7:40 AM EST) [facility] WBC 8.0 4.8 - 10.8 K/mcL LAB HEMETOLOGY METHOD 10/07/2024 12:19 PM [facility] RBC 4.20(L) 4.50 - 5.50 M/mcL LAB HEMETOLOGY METHOD 10/07/2024 12:19 PM [facility] Hemoglobin 11.1(L) 13.5 - 17.5 g/dL LAB HEMETOLOGY METHOD 10/07/2024 12:19 PM [facility] Hematocrit 36.7(L) 42.0 - 54.0 % LAB HEMETOLOGY METHOD 10/07/2024 12:19 PM [facility] MCV 87.0 79.0 - 98.0 FL LAB HEMETOLOGY METHOD 10/07/2024 12:19 PM [facility] MCH 26.3(L) 27.0 - 32.0 pcg LAB HEMETOLOGY METHOD 10/07/2024 12:19 PM [facility] MCHC 30.2(L) 32.0 - 37.0 g/dL LAB HEMETOLOGY METHOD 10/07/2024 12:19 PM [facility] RDW 15.3(H) 11.0 - 15.0 % LAB HEMETOLOGY METHOD 10/07/2024 12:19 PM [facility] Platelets 160 130 - 400 K/mcL LAB HEMETOLOGY METHOD 10/07/2024 12:19 PM [facility] MPV 12.9(H) 7.0 - 11.0 FL LAB HEMETOLOGY METHOD 10/07/2024 12:19 PM [facility] NRBC 0.0 <1.0 % LAB HEMETOLOGY METHOD 10/07/2024 12:19 PM [facility] NRBC Absolute 0.00 <0.10 K/[facility] LAB HEMETOLOGY METHOD 10/07/2024 12:19 PM [facility] Neutrophils Relative 72.5 % LAB HEMETOLOGY METHOD 10/07/2024 12:19 PM [facility] Lymphocytes Relative 16.9 % LAB HEMETOLOGY METHOD 10/07/2024 12:19 PM [facility] Monocytes Relative 7.4 % LAB HEMETOLOGY METHOD 10/07/2024 12:19 PM [facility] Eosinophils Relative 2.1 % LAB HEMETOLOGY METHOD 10/07/2024 12:19 PM [facility] Basophils Relative 0.6 % LAB HEMETOLOGY METHOD 10/07/2024 12:19 PM [facility] Immature Granulocytes Relative 0.5 % LAB HEMETOLOGY METHOD 10/07/2024 12:19 PM [facility] Neutrophils Absolute 5.78 1.50 - 7.00 K/mcL LAB HEMETOLOGY METHOD 10/07/2024 12:19 PM [facility] Lymphocytes Absolute 1.35 1.00 - 5.00 K/mcL LAB HEMETOLOGY METHOD 10/07/2024 12:19 PM [facility] Monocytes Absolute 0.59 0.20 - 1.00 K/mcL LAB HEMETOLOGY METHOD 10/07/2024 12:19 PM [facility] Eosinophils Absolute 0.17 0.00 - 0.50 K/mcL LAB HEMETOLOGY METHOD 10/07/2024 12:19 PM [facility] Basophils Absolute 0.05 0.00 - 0.20 K/mcL LAB HEMETOLOGY METHOD 10/07/2024 12:19 PM [facility] Immature Granulocytes Absolute 0.04(H) 0.00 - 0.03 K/mcL LAB HEMETOLOGY METHOD 10/07/2024 12:19 PM [facility] Blood Venous blood specimen / Unknown Venipuncture / Unknown 10/07/2024 7:40 AM EST 10/07/2024 11:28 AM EST us Freeman Cerna MD LAB BLOOD ORDERABLES Final Resul t [facility] ([facility] [address] [place] [address], documented in this encounter Visit Diagnoses Diagnosis Other moth exterminator (current) 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 documented in this encounter Care Teams Senior Ssis Developer Relationship Specialty Start Date End Date Regan Hogue MD [address] [place] [address] Dr [address] [place] PCP - General Internal Medicine 11/12/24 documented as of this encounter
--- OUTSIDE RECORDS SUMMARY | 2024-11-20 10:03 | XMS_ITS | Encounter Summary ---
Author Organization [facility] Address [address] [place] [address] Care Team Providers Care Sole Buffer Name Role Phone Regan Hogue MD Primary Care Provider Encounter Details Date Type Department Care Team (Late st Contact Info) Description 09/09/2024 Lab Requisition [facility] - Main Lab [address] [facility] [employer] [place] [address] Freeman Cerna MD [address] Other joint terminal attack controller (current) 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 Social History Tobacco Use [...] 9:45 AM EDT Consult Orthopedic Surgery - [address] [phone] Juventino Schneider DPM [address] [address] documented as of this encounter Procedures Procedure Name Priority Date/Time Associated Diagnosis Comments CBC WITH AUTO DIFFERENTIAL Routine 09/09/2024 6:39 AM EST Other joint terminal attack controller (current) 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 CBC AND DIFFERENTIAL Routine 09/09/2024 6:39 AM EST Other joint terminal attack controller (current) 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 documented in this encounter Results * (ABNORMAL) CBC auto differential (09/09/2024 6:39 AM EST) [facility] WBC 7.0 4.8 - 10.8 K/mcL LAB HEMETOLOGY METHOD 09/09/2024 10:01 AM [facility] RBC 4.20(L) 4.50 - 5.50 M/mcL LAB HEMETOLOGY METHOD 09/09/2024 10:01 AM [facility] Hemoglobin 11.2(L) 13.5 - 17.5 g/dL LAB HEMETOLOGY METHOD 09/09/2024 10:01 AM [facility] Hematocrit 37.2(L) 42.0 - 54.0 % LAB HEMETOLOGY METHOD 09/09/2024 10:01 AM [facility] MCV 88.2 79.0 - 98.0 FL LAB HEMETOLOGY METHOD 09/09/2024 10:01 AM [facility] MCH 26.5(L) 27.0 - 32.0 pcg LAB HEMETOLOGY METHOD 09/09/2024 10:01 AM [facility] MCHC 30.1(L) 32.0 - 37.0 g/dL LAB HEMETOLOGY METHOD 09/09/2024 10:01 AM [facility] RDW 15.7(H) 11.0 - 15.0 % LAB HEMETOLOGY METHOD 09/09/2024 10:01 AM [facility] Platelets 147 130 - 400 K/mcL LAB HEMETOLOGY METHOD 09/09/2024 10:01 AM [facility] MPV 12.8(H) 7.0 - 11.0 FL LAB HEMETOLOGY METHOD 09/09/2024 10:01 AM [facility] NRBC 0.0 <1.0 % LAB HEMETOLOGY METHOD 09/09/2024 10:01 AM [facility] NRBC Absolute 0.00 <0.10 K/mcL LAB HEMETOLOGY METHOD 09/09/2024 10:01 AM [facility] Neutrophils Relative 72.6 % LAB HEMETOLOGY METHOD 09/09/2024 10:01 AM [facility] Lymphocytes Relative 15.3 % LAB HEMETOLOGY METHOD 09/09/2024 10:01 AM [facility] Monocytes Relative 8.9 % LAB HEMETOLOGY METHOD 09/09/2024 10:01 AM [facility] Eosinophils Relative 2.0 % LAB HEMETOLOGY METHOD 09/09/2024 10:01 AM [facility] Basophils Relative 0.6 % LAB HEMETOLOGY METHOD 09/09/2024 10:01 AM [facility] Immature Granulocytes Relative 0.6 % LAB HEMETOLOGY METHOD 09/09/2024 10:01 AM [facility] Neutrophils Absolute 5.08 1.50 - 7.00 K/mcL LAB HEMETOLOGY METHOD 09/09/2024 10:01 AM [facility] Lymphocytes Absolute 1.07 1.00 - 5.00 K/mcL LAB HEMETOLOGY METHOD 09/09/2024 10:01 AM [facility] Monocytes Absolute 0.62 0.20 - 1.00 K/mcL LAB HEMETOLOGY METHOD 09/09/2024 10:01 AM [facility] Eosinophils Absolute 0.14 0.00 - 0.50 K/mcL LAB HEMETOLOGY METHOD 09/09/2024 10:01 AM [facility] Basophils Absolute 0.04 0.00 - 0.20 K/mcL LAB HEMETOLOGY METHOD 09/09/2024 10:01 AM [facility] Immature Granulocytes Absolute 0.04(H) 0.00 - 0.03 K/mcL LAB HEMETOLOGY METHOD 09/09/2024 10:01 AM [facility] Blood Venous blood specimen / Unknown Venipuncture / Unknown 09/09/2024 6:39 AM EST 09/09/2024 9:46 AM EST us Freeman Cerna MD LAB BLOOD ORDERABLES Final Resul t [facility] ([facility]) [facility] [address] [place] [address], documented in this encounter Visit Diagnoses Diagnosis Other joint terminal attack controller (current) 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 documented in this encounter Care Teams Sole Buffer Relationship Specialty Start Date End Date Regan Hogue MD [address] [place] [address] Dr [address] [place] PCP - General Internal Medicine 11/12/24 documented as of this encounter
--- OUTSIDE RECORDS SUMMARY | 2024-11-20 10:03 | XMS_ITS | Clinical Summary ---
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 09/09/2024 Lab Requisition [facility] [address] [place] [phone] Freeman Cerna MD Other fdc (current) 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 from Last 3 Months Social History Tobacco Use Types Packs/Day Years Used Date Smoking Tobacco: Never Assessed Sex and Gender Information Value Date Recorded Sex Assigned at Not on file Legal Sex Male 11:44 PM EST Gender Identity Not on file Sexual Orientation Not on file Plan of Treatment Upcoming Encounters Date Type Department Care Team (Late st Contact Info) Description 01/20/2025 9:45 AM EDT Consult Orthopedic Surgery - [place] [address] [phone] Juventino Schneider, DPSaima 175 [facility] [address] [place] [address] Health Maintenance Due Date Last Done Comments Diabetes: Annual GFR (Glomer ular Filtration Rate) 1964 Diabetes: Annual Foot Exam 01/11/1974 Diabetes: Annual Retina Eye Exam 01/11/1974 DTaP,Tdap,and Td Vaccines (1 - Tdap) 01/11/1983 Pneumococcal Vaccine: 50+ Ye ars (1 of 2 - PCV) 01/11/1983 Pneumococcal Vaccine: Pediat rics (0 to 5 Years) and At-Risk Patients (6 to 64 Years) (1 of 2 - PCV) 01/11/1983 Zoster Vaccines (1 of 2) 01/11/2014 Cholesterol Screening (Lipid Panel) 09/10/2022 Colorectal Cancer Screening: Colonoscopy 09/10/2022 Depression Screening 09/10/2022 HIV Screening 09/10/2022 Hepatitis C Screening 09/10/2022 Medicare Annual Wellness Visit 09/10/2022 Social Influencers of Health Screening 09/10/2022 RSV Immunization Patients 60 + Years Old (1 - Risk 60-74 years 1-dose series) 2024 COVID-19 Vaccine (1 - 2023-2 5 season) 2024 Influenza Vaccine (#1) 2024 Diabetes: Annual Urine Albumin-Creatinine Ratio (uACR) 11/12/2024 Diabetes: Blood Sugar Contro l Test (HGBA1C) 11/12/2024 HIB Vaccines Aged Out No longer eligi ble based on patient's age to complete this topic HPV Vaccines Aged Out No longer eligi ble based on patient's age to complete this topic Hepatitis A Vaccines Aged Out No long er eligible based on patient's age to complete this topic Hepatitis B Vaccines Aged Out No long er eligible based on patient's age to complete this topic IPV Vaccines Aged Out No longer eligi ble based on patient's age to complete this topic MMR Vaccines Aged Out No longer eligi ble based on patient's age to complete this topic Meningococcal ACWY Vaccine Aged Out N o longer eligible based on patient's age to complete this topic Meningococcal B Vacine Aged Out No lo nger eligible based on patient's age to complete this topic RSV Immunization Patients Un shante 20 months Aged Out No longer eligible b ased on patient's age to complete this topic Varicella Vaccines Aged Out No longer eligible based on patient's age to complete this topic Procedures Procedure Name Priority Date/Time Associated Diagnosis Comments CBC WITH AUTO DIFFERENTIAL Routine 11/04/2024 6:33 AM EST 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 CBC AND DIFFERENTIAL Routine 11/04/2024 6:33 AM EST 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 [facility] Signature WBC 7.7 4.8 - 10.8 K/mcL LAB HEMETOLOGY METHOD 11/04/2024 10:21 AM [facility] LAB RBC 3.90(L) 4.50 - 5.50 M/mcL LAB HEMETOLOGY METHOD 11/04/2024 10:21 AM [facility] LAB Hemoglobin 10.4(L) 13.5 - 17.5 g/dL LAB HEMETOLOGY METHOD 11/04/2024 10:21 AM [facility] LAB Hematocrit 34.8(L) 42.0 - 54.0 % LAB HEMETOLOGY METHOD 11/04/2024 10:21 AM [facility] LAB MCV 88.8 79.0 - 98.0 FL LAB HEMETOLOGY METHOD 11/04/2024 10:21 AM [facility] LAB MCH 26.5(L) 27.0 - 32.0 pcg LAB HEMETOLOGY METHOD 11/04/2024 10:21 AM [facility] LAB MCHC 29.9(L) 32.0 - 37.0 g/dL LAB HEMETOLOGY METHOD 11/04/2024 10:21 AM [facility] LAB RDW 16.6(H) 11.0 - 15.0 % LAB HEMETOLOGY METHOD 11/04/2024 10:21 AM [facility] LAB Platelets 131 130 - 400 K/mcL LAB HEMETOLOGY METHOD 11/04/2024 10:21 AM [facility] LAB MPV 13.1(H) 7.0 - 11.0 FL LAB HEMETOLOGY METHOD 11/04/2024 10:21 AM [facility] LAB NRBC 0.0 <1.0 % LAB HEMETOLOGY METHOD 11/04/2024 10:21 AM [facility] LAB NRBC Absolute 0.00 <0.10 K/mcL LAB HEMETOLOGY METHOD 11/04/2024 10:21 AM [facility] LAB Neutrophils Relative 70.9 % LAB HEMETOLOGY METHOD 11/04/2024 10:21 AM [facility] LAB Lymphocytes Relative 17.2 % LAB HEMETOLOGY METHOD 11/04/2024 10:21 AM [facility] LAB Monocytes Relative 9.1 % LAB HEMETOLOGY METHOD 11/04/2024 10:21 AM [facility] LAB Eosinophils Relative 1.8 % LAB HEMETOLOGY METHOD 11/04/2024 10:21 AM [facility] LAB Basophils Relative 0.7 % LAB HEMETOLOGY METHOD 11/04/2024 10:21 AM [facility] LAB Immature Granulocytes Relative 0.3 % LAB HEMETOLOGY METHOD 11/04/2024 10:21 AM [facility] LAB Neutrophils Absolute 5.46 1.50 - 7.00 K/mcL LAB HEMETOLOGY METHOD 11/04/2024 10:21 AM EST [facility] Lymphocytes Absolute 1.32 1.00 - 5.00 K/mcL LAB HEMETOLOGY METHOD 11/04/2024 10:21 AM EST [facility] Monocytes Absolute 0.70 0.20 - 1.00 K/[facility] LAB HEMETOLOGY METHOD 11/04/2024 10:21 AM EST [facility] Eosinophils Absolute 0.14 0.00 - 0.50 K/[facility] LAB HEMETOLOGY METHOD 11/04/2024 10:21 AM EST [facility] Basophils Absolute 0.05 0.00 - 0.20 K/[facility] LAB HEMETOLOGY METHOD 11/04/2024 10:21 AM EST [facility] Immature Granulocytes Absolute 0.02 0.00 - 0.03 K/[facility] LAB HEMETOLOGY METHOD 11/04/2024 10:21 AM EST [facility] Blood Venous blood specimen / Unknown Venipuncture / Unknown 11/04/2024 6:33 AM EST 11/04/2024 8:32 AM EST us Freeman Cerna MD LAB BLOOD ORDERABLES Final Resul t [facility] LAB [address] [place] [address], [place] [phone] from Last 3 Months Insurance [place] [facility]N [facility]S [facility] [id number] MEDICARE Care Teams Sales Counselor Relationship Specialty Start Date End Date Regan Hogue MD [address] [place] [address] [address] [place] PCP - General Internal Medicine 11/12/24
--- OUTSIDE RECORDS SUMMARY | 2024-11-20 10:03 | XMS_ITS | Clinical Summary ---
Author Organization [facility] Address [address] [facility] [address] [place] [address] Phone Care Team Providers Care Evaporator Helper Name Role Phone Regan Hogue MD Primary Care Provider [phone] Allergies Active Allergy Reactions Criticality Noted Date Comments Diphenhydramine Other (see comments) 12/19/2023 Haloperidol Other (see comments) 12/19/2023 Boyd Other (see comments) 12/19/2023 Thiothixene (Tiotixene) Other [...] Schizoaffective disorder, not otherwise specifie d 12/20/2023 Boyd adverse reaction <Sequela> 12/20/2023 Acute nontraumatic kidney injury 12/20/2023 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
--- OUTSIDE RECORDS SUMMARY | 2024-11-20 10:03 | XMS_ITS | Encounter Summary ---
Author Organization [facility] Address [address] [place] [address] Care Team Providers Care Revenue Officer Name Role Phone Regan Hogue MD Primary Care Provider Encounter Details Date Type Department Care Team (Late st Contact Info) Description 08/12/2024 Lab Requisition [facility] - Main Lab [address] [facility] [place] [phone] Freeman Cerna MD [address] Other terminologist (current) 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 Social History Tobacco Use [...] 9:45 AM EDT Consult Orthopedic Surgery - [place] [phone] [phone] Juventino Schneider DPM [address] [address] documented as of this encounter Procedures Procedure Name Priority Date/Time Associated Diagnosis Comments TRAVEL PHLEBOTOMY FEE Routine 08/12/2024 9:00 AM EST Other [facility] (current) 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 CBC WITH AUTO DIFFERENTIAL Routine 08/12/2024 9:00 AM EST Other terminologist (current) 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 CBC AND DIFFERENTIAL Routine 08/12/2024 9:00 AM EST Other terminologist (current) 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 documented in this encounter Results * (ABNORMAL) CBC auto differential (08/12/2024 9:00 AM EST) [facility] WBC 6.5 4.8 - 10.8 K/mcL LAB HEMETOLOGY METHOD 08/12/2024 11:44 AM [facility] LAB RBC 4.30(L) 4.50 - 5.50 M/mcL LAB HEMETOLOGY METHOD 08/12/2024 11:44 AM [facility] LAB Hemoglobin 11.6(L) 13.5 - 17.5 g/dL LAB HEMETOLOGY METHOD 08/12/2024 11:44 AM [facility] LAB Hematocrit 37.1(L) 42.0 - 54.0 % LAB HEMETOLOGY METHOD 08/12/2024 11:44 AM [facility] LAB MCV 86.7 79.0 - 98.0 FL LAB HEMETOLOGY METHOD 08/12/2024 11:44 AM [facility] LAB MCH 27.1 27.0 - 32.0 pcg LAB HEMETOLOGY METHOD 08/12/2024 11:44 AM [facility] LAB MCHC 31.3(L) 32.0 - 37.0 g/dL LAB HEMETOLOGY METHOD 08/12/2024 11:44 AM [facility] LAB RDW 15.7(H) 11.0 - 15.0 % LAB HEMETOLOGY METHOD 08/12/2024 11:44 AM [facility] LAB Platelets 121(L) 130 - 400 K/mcL LAB HEMETOLOGY METHOD 08/12/2024 11:44 AM [facility] LAB MPV 12.6(H) 7.0 - 11.0 FL LAB HEMETOLOGY METHOD 08/12/2024 11:44 AM [facility] LAB NRBC 0.0 <1.0 % LAB HEMETOLOGY METHOD 08/12/2024 11:44 AM [facility] LAB NRBC Absolute 0.00 <0.10 K/mcL LAB HEMETOLOGY METHOD 08/12/2024 11:44 AM [facility] LAB Neutrophils Relative 74.8 % LAB HEMETOLOGY METHOD 08/12/2024 11:44 AM [facility] LAB Lymphocytes Relative 13.3 % LAB HEMETOLOGY METHOD 08/12/2024 11:44 AM [facility] LAB Monocytes Relative 9.4 % LAB HEMETOLOGY METHOD 08/12/2024 11:44 AM [facility] LAB Eosinophils Relative 1.1 % LAB HEMETOLOGY METHOD 08/12/2024 11:44 AM [facility] LAB Basophils Relative 0.6 % LAB HEMETOLOGY METHOD 08/12/2024 11:44 AM [facility] LAB Immature Granulocytes Relative 0.8 % LAB HEMETOLOGY METHOD 08/12/2024 11:44 AM [facility] LAB Neutrophils Absolute 4.86 1.50 - 7.00 K/mcL LAB HEMETOLOGY METHOD 08/12/2024 11:44 AM [facility] LAB Lymphocytes Absolute 0.86(L) 1.00 - 5.00 K/mcL LAB HEMETOLOGY METHOD 08/12/2024 11:44 AM [facility] LAB Monocytes Absolute 0.61 0.20 - 1.00 K/mcL LAB HEMETOLOGY METHOD 08/12/2024 11:44 AM [facility] LAB Eosinophils Absolute 0.07 0.00 - 0.50 K/mcL LAB HEMETOLOGY METHOD 08/12/2024 11:44 AM [facility] LAB Basophils Absolute 0.04 0.00 - 0.20 K/mcL LAB HEMETOLOGY METHOD 08/12/2024 11:44 AM [facility] LAB Immature Granulocytes Absolute 0.05(H) 0.00 - 0.03 K/mcL LAB HEMETOLOGY METHOD 08/12/2024 11:44 AM EST [facility] Blood Venous blood specimen / Unknown Venipuncture / Unknown 08/12/2024 9:00 AM EST 08/12/2024 10:29 AM EST us Freeman Cerna MD LAB BLOOD ORDERABLES Final Resul t Performing Organization Address City/[facility]/ZIP Co de Phone Number [facility] [address] [place] [address], [place] [phone] * Travel phlebotomy fee (08/12/2024 9:00 AM EST) [facility] TRAVEL PHLEBOTOMY FEE Completed 08/12/2024 11:02 AM EST [facility] Blood Venous blood specimen / Unknown Venipuncture / Unknown 08/12/2024 9:00 AM EST 08/12/2024 10:29 AM EST us Freeman Cerna MD LAB BLOOD ORDERABLES Final Resul t Performing Organization Address City/[facility]/ZIP Co de Phone Number [facility] [address] [place] [address], [place] [phone] documented in this encounter Visit Diagnoses Diagnosis Other terminologist (current) 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 documented in this encounter Care Teams Revenue Officer Relationship Specialty Start Date End Date Regan Hogue MD [address] [place] [address] Dr [facility] [place], [place] PCP - General Internal Medicine 11/12/24 documented as of this encounter
--- OUTSIDE RECORDS SUMMARY | 2024-11-20 10:03 | XMS_ITS | Encounter Summary ---
Author Organization [facility] Address [address] [place] [address] Care Team Providers Care Pulmonary Care Nurse Name Role Phone Regan Hogue MD Primary Care Provider [phone] Encounter Details Date Type Department Care Team (Late st Contact Info) Description 11/04/[address] [facility] - Main Lab 299 [facility] [place] [address] Freeman Cerna MD [address] Other terminal make up operator (current) 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 Social History Tobacco Use [...] 9:45 AM EDT Consult Orthopedic Surgery - [address] [phone] Juventino Schneider DPM [address] [address] documented as of this encounter Procedures Procedure Name Priority Date/Time Associated Diagnosis Comments CBC WITH AUTO DIFFERENTIAL Routine 11/04/2024 6:33 AM EST Other terminal make up operator (current) 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 CBC AND DIFFERENTIAL Routine 11/04/2024 6:33 AM EST Other terminal make up operator (current) 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 documented in this encounter Results * (ABNORMAL) CBC auto differential (11/04/2024 6:33 AM EST) [facility] WBC 7.7 4.8 - 10.8 K/mcL LAB HEMETOLOGY METHOD 11/04/2024 10:21 AM [facility] LAB RBC 3.90(L) 4.50 - 5.50 M/mcL LAB HEMETOLOGY METHOD 11/04/2024 10:21 AM [facility] LAB Hemoglobin 10.4(L) 13.5 - 17.5 g/dL LAB HEMETOLOGY METHOD 11/04/2024 10:21 AM [facility] LAB Hematocrit 34.8(L) 42.0 - 54.0 % LAB HEMETOLOGY METHOD 11/04/2024 10:21 AM [facility] LAB MCV 88.8 79.0 - 98.0 FL LAB HEMETOLOGY METHOD 11/04/2024 10:21 AM [facility] LAB MCH 26.5(L) 27.0 - 32.0 pcg LAB HEMETOLOGY METHOD 11/04/2024 10:21 AM [facility] LAB MCHC 29.9(L) 32.0 - 37.0 g/dL LAB HEMETOLOGY METHOD 11/04/2024 10:21 AM [facility] LAB RDW 16.6(H) 11.0 - 15.0 % LAB HEMETOLOGY METHOD 11/04/2024 10:21 AM [facility] LAB Platelets 131 130 - 400 K/mcL LAB HEMETOLOGY METHOD 11/04/2024 10:21 AM [facility] LAB MPV 13.1(H) 7.0 - 11.0 FL LAB HEMETOLOGY METHOD 11/04/2024 10:21 AM [facility] LAB NRBC 0.0 <1.0 % LAB HEMETOLOGY METHOD 11/04/2024 10:21 AM [facility] LAB NRBC Absolute 0.00 <0.10 K/mcL LAB HEMETOLOGY METHOD 11/04/2024 10:21 AM [facility] LAB Neutrophils Relative 70.9 % LAB HEMETOLOGY METHOD 11/04/2024 10:21 AM [facility] LAB Lymphocytes Relative 17.2 % LAB HEMETOLOGY METHOD 11/04/2024 10:21 AM [facility] LAB Monocytes Relative 9.1 % LAB HEMETOLOGY METHOD 11/04/2024 10:21 AM [facility] LAB Eosinophils Relative 1.8 % LAB HEMETOLOGY METHOD 11/04/2024 10:21 AM [facility] LAB Basophils Relative 0.7 % LAB HEMETOLOGY METHOD 11/04/2024 10:21 AM [facility] LAB Immature Granulocytes Relative 0.3 % LAB HEMETOLOGY METHOD 11/04/2024 10:21 AM [facility] LAB Neutrophils Absolute 5.46 1.50 - 7.00 K/mcL LAB HEMETOLOGY METHOD 11/04/2024 10:21 AM [facility] LAB Lymphocytes Absolute 1.32 1.00 - 5.00 K/mcL LAB HEMETOLOGY METHOD 11/04/2024 10:21 AM [facility] LAB Monocytes Absolute 0.70 0.20 - 1.00 K/mcL LAB HEMETOLOGY METHOD 11/04/2024 10:21 AM [facility] LAB Eosinophils Absolute 0.14 0.00 - 0.50 K/mcL LAB HEMETOLOGY METHOD 11/04/2024 10:21 AM [facility] Basophils Absolute 0.05 0.00 - 0.20 K/mcL LAB HEMETOLOGY METHOD 11/04/2024 10:21 AM [facility] LAB Immature Granulocytes Absolute 0.02 0.00 - 0.03 K/mcL LAB HEMETOLOGY METHOD 11/04/2024 10:21 AM [facility] LAB Blood Venous blood specimen / Unknown Venipuncture / Unknown 11/04/2024 6:33 AM EST 11/04/2024 8:32 AM EST us Freeman Cerna MD LAB BLOOD ORDERABLES Final Resul t [facility] [address] [place] [address], documented in this encounter Visit Diagnoses Diagnosis Other assisted (current) 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 documented in this encounter Care Teams Pulmonary Care Nurse Relationship Specialty Start Date End Date Regan Hogue MD [address] [place] [address] Dr [address] [place] PCP - General Internal Medicine 11/12/24 documented as of this encounter
--- NOTE | 2024-11-20 10:15 | PC.NURSE ---
report given to meme griffin
[2024-11-20 10:24] LABS: MANUAL DIFF FLAG NO
[2024-11-20 10:28] LABS: Basophils Percent Auto 0.5 % (0-2); Eosinophils Absolute Auto 0.1 X10*3/uL (0.0-0.4); Eosinophils Percent Auto 0.8 % (0-4); Hematocrit 37.6 % (42.0-52.0); Hemoglobin 12.5 g/dl (14.0-18.0); Imm Gran Abs Auto 0.02 X10*3/uL (0.00-0.03); Imm Gran Pct Auto 0.3 % (0.0-0.4); Lymphocytes Absolute Auto 0.9 X10*3/uL (1.2-4.9); Mean Corpuscular HGB Conc 33.2 g/dl (31.0-36.0); Mean Corpuscular Hemoglobin 26.7 pg (27.0-33.0); Mean Corpuscular Volume 80.2 fL (80.0-98.0); Mean Platelet Volume 12.1 fL (9.4-12.4); Monocytes Absolute Auto 0.7 X10*3/uL (0.1-1.2); Neutrophils Absolute Auto 5.9 x10*3/uL (2.0-8.3); Neutrophils Percent Auto 77.4 % (45-73); Platelet Count 154 X10*3/uL (160-400); Red Blood Count 4.69 X10*6/uL (4.60-5.80); White Blood Count 7.6 X10*3/uL (4.8-10.8)
[2024-11-20 10:49] LABS: Alanine Aminotransferase 23 U/L (0-40); Albumin Level 4.2 g/dL (3.5-5.0); Alkaline Phosphatase 79 U/L (39-117); Anion Gap 17 (12-20); Aspartate Amino Transferase 27 U/L (5-37); Bilirubin Total 0.4 mg/dL (0.0-1.0); Blood Urea Nitrogen 39 mg/dL (9-16); Calcium 9.9 mg/dL (8.4-10.2); Carbon Dioxide 28 mmol/L (22-29); Chloride 98 mmol/L (96-108); Creatinine Clr Calc Pharmacy 43.7; Estimated Glomerular Filt Rate 32; Ethanol < 10 mg/dL; Glucose Random 273 mg/dL (60-115); Potassium 2.3 mmol/L (3.3-5.1); Sodium 141 mmol/L (135-145); Total Protein 7.5 g/dL (6.5-8.0)
--- NOTE | 2024-11-20 10:49 | ECG_ITS ---
Test Reason : QTC CHECK Blood Pressure : */* mmHG Vent. Rate : 85 BPM Atrial Rate : 85 BPM P-R Int : 302 ms QRS Dur : 124 ms QT Int : 448 ms P-R-T Axes : 48 27 191 degrees QTcB Int : 533 ms Sinus rhythm with 1st degree A-V block Left ventricular hypertrophy with QRS widening and repolarization abnormality ( Sokolow-Vences , Andrea product ) Abnormal ECG When compared with ECG of 29-Sep-2024 16:01, SD interval has increased ST now depressed in Anterior leads QT has lengthened Referred By: Zaynab Myers Electronically Signed By: JEREMIAS MARTIN MD
[2024-11-20 11:24] VITALS: BP 104/70; PULSE 82; RESP 20; TEMP 36.8; O2SAT 94
[2024-11-20] MEDS: Potassium Chloride Packet 20 MEQ PACKET 80 MEQ PO (11:26)
[2024-11-20] MEDS: Potassium Chloride/H20 10 MEQ/100 ML PIGGYBACK 100 MEQ IV ×2 (11:26→12:31)
[2024-11-20] MEDS: 0.9 % Sodium Chloride 1,000 ML 999 ML IV (11:27)
[2024-11-20 11:38] LABS: Magnesium 2.3 mg/dL (1.6-2.6)
--- NOTE | 2024-11-20 12:07 | P.HPHOSP_ITS ---
History of Present Illness Date of Service: 11/20/24 Attending physician on admission: Kevin Cha Chief Complaint: Suicidal ideation Pt is a 59-year-old male with a PMH significant for HTN, insulin-dependent type 2 diabetes, HLD, HOCM, COPD, JUDY?on 2 L NC at night, chronic constipation, schizoaffective disorder, and resident of a [facility] who presents to the ED with concerns for decreased appetite, increased depression, and suicidal ideation. According to EMS, staff at [facility] report pt has had very little food or fluid intake for the past 2 days. Has also had increased depression with SI without plan. Pt himself states he has been eating and drinking lasts for the past 4-5 days. He is unable to articulate why he has not been eating, just shrugs his shoulders. Complains of some lightheadedness and dizziness with standing, as well as lower abdominal discomfort that began earlier today. Some chills but no fever. Pt continues to endorse SI but repeat said he has no specific plan for self-harm. Denies chest pain/pressure, palpitations. No SOB or difficulty breathing. No nausea, vomiting, diarrhea. Reports quit smoking 1 month ago, previously smoking half a pack of cigarettes daily. In the ED pt's vitals stable and WNL. Labs were significant for potassium 2.3, BUN 39, creatinine 2.10 (elevated from 1.04 on 10/02/2024), and glucose 273. No leukocytosis. Stable normocytic anemia of 12.5/37.6. Hepatic function baseline. EKG demonstrated sinus rhythm with first-degree AV block and diffuse T-wave inversions, similar to prior. QTC prolonged at 533, similar to prior. Pt was treated with potassium chloride IV and p.o., and IVF. Pt will be admitted to the hospital for treatment and further evaluation of JUHI and hypokalemia in the setting of reduced p.o. intake from increasing depression with SI without a specific plan. Review of Systems 2 Review of Systems: Negative except for that which is stated in the HPI. 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 use of insulin JUDY (obstructive sleep apnea) BPH (benign prostatic hyperplasia) Diabetes mellitus Essential hypertension HOCM (hypertrophic obstructive cardiomyopathy) Coronary artery disease Osteoarthritis GERD without esophagitis Vitamin D deficiency Schizoaffective disorder Congestive heart failure COVID-19 Thought disorder Nocturnal hypoxemia Constipation COPD (chronic obstructive pulmonary disease) Smoker Diabetes mellitus Obesity (BMI 30-39.9) Pure hypercholesterolemia Prolonged QT interval Aggression Hypertension CHF (congestive heart failure) Cardiac arrhythmia Myocardial infarction Family History Father Medical history unknown Mother Medical history unknown Sister Alive and well Surgical History History of ankle surgery History of intestinal surgery History of transurethral resection of prostate Social History Household Members: Other Household Members Other:: Roommate Housing: Assisted Living Facility Housing Other:: [facility] Do you presently have visiting nurse or other home services: No Unable to assess alcohol history related to: Unknown Alcohol intake: current Alcohol intake frequency: a few times a month Alcohol type: beer Comment: Sitter in room Patient Tobacco Use Status: Current everyday Tobacco user Tobacco use type: Cigarette Cigarette Packs Per Day: 0.5 Cigarettes Per Day: 10 Years Smoked: Many Smoked in Last 30 Days: No e-Cigarette/Vaping Use: Currently Using Second Hand Smoke Exposure: Yes Use of substances other than those prescribed or required for medical reasons: No Substance Use Type: Unknown Advance Directives: Yes Advance Directives on File: Yes Advance Directives Date on File: 01/14/24 Do you have a plan to hurt others: No Plan service: No Current occupational status: disabled Sexual orientation: Straight/Heterosexual Cognitive needs: Yes Hearing needs: No Vision needs: Yes Meds Allergies Allergy/AdvReac Type Severity Reaction Status Date / Time lithium [[place]] Allergy Severe Toxicity Verified 11/20/24 09:27 thiothixene Allergy Severe Swelling Verified 11/20/24 09:27 amoxicillin Allergy Mild Nose Bleed Verified 11/20/24 09:27 benztropine Allergy Unknown benztropine Verified 11/20/24 09:27 mesylate- unknown gabapentin [From NEURONTIN] Allergy Unknown Unknown Verified 11/20/24 09:27 fluphenazine [From Prolixin] Allergy Unknown Verified 11/20/24 09:27 barium sulfate AdvReac Intermediate Nausea and Verified 11/20/24 09:27 [BARIUM SULFATE] Vomiting haloperidol AdvReac Intermediate Muscle Verified 11/20/24 09:27 tension in legs diphenhydramine AdvReac Unknown urinary Verified 11/20/24 09:27 [From Benadryl] retention Active Medications: Current Medications Sodium Chloride (Ns) 1,000 mls @ 999 mls/hr IV .Q1H1M STA Stop: 11/20/24 12:11 Last Admin: 11/20/24 11:27 Dose: 999 mls/hr Potassium Chloride (Potassium Chloride/H20) 10 meq in 100 mls @ 100 mls/hr IV Q1H OZZY Stop: 11/20/24 13:14 Last Admin: 11/20/24 11:26 Dose: 100 mls/hr Home Medications ?Medication ?Instructions ?Recorded ?Confirmed ?Last Taken ?Type clozapine 100 mg tablet 100 mg PO DAILY@199904/28/24 11/11/24 09/27/24 20:00 History aluminum-mag hydroxide-simethicone 10 ml PO TID PRN Indigestion 05/27/24 11/11/24 Unknown History 200 mg-200 mg-20 mg/5 mL oral susp lurasidone 60 mg tablet 60 mg PO BEDTIME@1800 05/27/24 11/11/24 09/27/24 20:00 History nicotine (polacrilex) 4 mg buccal 4 mg buccal Q2H PRN Smoking 05/27/24 11/11/24 Unknown History lozenge Cessation aspirin 81 mg tablet,delayed 81 mg PO DAILY 11/20/24 11/20/24 Unknown History release atorvastatin 20 mg tablet 20 mg PO BEDTIME 11/20/24 11/20/24 Unknown History Physical Exam 2 Vital Signs and Narrative: Vital Signs: Last Vital Signs Temp 98.2 F 11/20/24 11:24 Pulse 82 11/20/24 11:24 Resp 20 11/20/24 11:24 BP 104/70 11/20/24 11:24 Pulse Ox 94 11/20/24 11:24 O2 Del Method Room Air 11/20/24 11:24 BMI result Body Mass Index 34.9 General: AOx3, no acute distress Resp: CTA bilaterally CVS: S1, S2, RRR GI: +BS, no distention, mild lower abdominal tenderness Skin: Warm, dry Neuro: Cranial nerves II-XII grossly intact bilaterally. Motor grossly intact bilaterally. Compulsive tardive dyskinesia-like movements of the mouth and tongue. Extremities: No edema Psych: Flat affect Results Labs 11/20/24 10:21 11/20/24 10:21 Labs: Laboratory Results - last 24 hr 11/20/24 10:21 MCV 80.2 MCH 26.7 L MCHC 33.2 RDW 15.0 Plt Count 154 L MPV 12.1 Immature Gran % (Auto) 0.3 Neut % (Auto) 77.4 H Lymph % (Auto) 12.0 L [place]oll[place] % (Auto) 9.0 Eos % (Auto) 0.8 Baso % (Auto) 0.5 Lymph # (Auto) 0.9 L [place] # (Auto) 0.7 Eos # (Auto) 0.1 Baso # (Auto) 0.0 Abs Immat Gran (auto) 0.02 Absolute Neuts (auto) 5.9 Absolute Nucleated RBC 0.000 Nucleated RBC % (auto) 0.0 Anion Gap 17 Estim Creat Clear Calc 43.7 Estimated GFR 32 Random Glucose 273 H Calcium 9.9 D Magnesium 2.3 Total Bilirubin 0.4 AST 27 ALT 23 Alkaline Phosphatase 79 Total Protein 7.5 Albumin 4.2 Ethyl Alcohol < 10 Assessment and Plan (1) Passive suicidal ideations: Status: Acute (2) Acute kidney injury: Status: Acute (3) Hypokalemia: Status: Acute Plan Pt is a 59-year-old male with a PMH significant for HTN, insulin-dependent type 2 diabetes, HLD, HOCM, COPD, JUDY?on 2 L NC at night, chronic constipation, schizoaffective disorder, and resident of a [facility] who presents to the ED with concerns for decreased appetite, increased depression, and suicidal ideation. Pt will be admitted to the hospital for treatment and further evaluation of JUHI and hypokalemia in the setting of reduced p.o. intake from increasing depression with SI without a specific plan. JUHI Creatinine 2.10 at time of presentation, elevated from 1.04 on 10/02/2024 Secondary to reduced p.o. intake due to increasing depression with passive SI Pt received 1 L IVF bolus in the ED Will place on maintenance fluids Follow creatinine Hypokalemia Potassium 2.3 at time of presentation In the setting of reduced p.o. intake due to increasing depression with passive SI Received 20 mEq IV and 80 mEq p.o. in the ED Trend potassium Monitor on telemetry Suicidal ideation Pt reports with increasing depression and SI without specific plan Pt with a long hx psychiatric illness including multiple inpatient psychiatric hospitalizations Last hospitalized here on 01/23-02/04 One-to-one sitter Continue home mood stabilizers Psychiatric consult once medically cleared Insulin-dependent type 2 diabetes Sliding-scale insulin, Lantus Diabetic diet COPD Not in acute exacerbation Continue home inhalers Cardiomyopathy Continue statin, aspirin HTN Continue metoprolol GERD Continue PPI JUDY On 2L supplemental O2 at bedtime Full Code Attending:?Dr. Cha DVT Prophylaxis: Lovenox Pt will require a hospitalization of at least two nights for treatment of?JUHI and acute hypokalemia secondary to reduced p.o. intake in the setting of increased depression with vague SI. Pt will require hospital level care for administration of supplemental potassium, IVF, and close monitoring of cardiac function and labs. Quality Stroke Does the patient have a stroke diagnosis?: No VTE Prior VTE?: No VTE Risk Level:: Medical - moderate - high VTE Device Contraindication: Treatment Not Indicated VTE Drug Contraindication: N/A - Med Ordered
[2024-11-20 12:24] LABS: Influenza A PCR NEGATIVE (Negative); Influenza B PCR NEGATIVE (Negative); Resp Syncy Virus RNA Qual PCR NEGATIVE (Negative); SARS COV2 PCR INHOUSE NEGATIVE (Negative)
[2024-11-20] MEDS: Enoxaparin Sodium 40 MG/0.4 ML SYRINGE SUBCUT (13:49)
[2024-11-20] MEDS: Lactated Ringers 1,000 ML 100 ML IVCONT ×2 (13:49→21:24)
--- NOTE | 2024-11-20 13:55 | PHA.MEDREC ---
Addendum entered by Reba Moody RPh 11/20/24 16:37: WAS ABLE TO CONFIRM CLOZARIL DOSING IS 175 MG TDD GIVEN AT BEDTIME AND LAST DOSE WAS GIVEN 11/19/24 Original Note: Pharmacy Consult ? Medication Reconciliation Pharmacy has completed the medication reconciliation. Med rec completed using combination of list provided by [facility] and claim history. At time of this note still waiting for confirmation on clozaril dosing and last administration but will enter into emar when confirmed.
[2024-11-20 15:41] VITALS: BP 98/60; PULSE 77; RESP 22; TEMP 36.8; O2SAT 93
[2024-11-20 15:54] LABS: Anion Gap 15 (12-20); Blood Urea Nitrogen 37 mg/dL (9-16); Calcium 9.8 mg/dL (8.4-10.2); Carbon Dioxide 29 mmol/L (22-29); Chloride 102 mmol/L (96-108); Creatinine Clr Calc Pharmacy 41.9; Estimated Glomerular Filt Rate 31; Glucose Random 210 mg/dL (60-115); Potassium 3.3 mmol/L (3.3-5.1); Sodium 143 mmol/L (135-145)
--- NOTE | 2024-11-20 16:20 | PC.NURSE ---
pt is currently sleeping, respirations even and unlabored in no apparent distress at this time, sitter in place
[2024-11-20 16:34] LABS: Amphetamine Screen Urine Not Detected (Not Detect); Barbiturates, Urine Not Detected (Not Detect); Benzodiazepines Screen Urine Not Detected (Not Detect); Buprenorphine Scr Not Detected (Not Detect); Cannabinoid Screen Urine Not Detected (Not Detect); Cocaine Screen Urine Not Detected (Not Detect); Fentanyl, urine Not Detected (Not Detect); Methadone Screen, Urine Not Detected (Not Detect); Opiate Screen Urine Not Detected (Not Detect); Oxycodone Screen Urine Not Detected (Not Detect); Phencyclidine Screen Urine Not Detected (Not Detect)
[2024-11-20 17:18] VITALS: BP 131/81; PULSE 72; RESP 18; TEMP 36.8; O2SAT 96
[2024-11-20 17:18] LABS: Glucose, Whole Blood 174 mg/dL (60-115)
[2024-11-20] MEDS: Insulin Lispro 100 UNIT/ML 3 ML VIAL SUBCUT ×2 (17:54→21:23)
[2024-11-20] MEDS: Potassium Chloride Packet 20 MEQ PACKET 40 MEQ PO (17:54)
[2024-11-20 20:00] VITALS: BP 122/59; PULSE 68; RESP 18; TEMP 36.6; O2SAT 92
[2024-11-20 21:00] LABS: Glucose, Whole Blood 196 mg/dL (60-115)
[2024-11-20] MEDS: Lurasidone HCl 20 MG TABLET 60 MG PO (21:03)
[2024-11-20] MEDS: Insulin Glargine,Hum.rec.anlog 100 UNIT/ML 10 ML VIAL 10 UNIT SUBCUT (21:04)
[2024-11-20] MEDS: cloZAPine 100 MG TABLET PO (21:04)
[2024-11-20] MEDS: traZODone HCL 50 MG TABLET PO (21:04)
[2024-11-20] MEDS: cloZAPine 25 MG TABLET 75 MG PO (21:04)
[2024-11-20] MEDS: Atorvastatin Calcium 20 MG TABLET PO (21:04)
[2024-11-21] VITALS: BP 110/56; PULSE 69; RESP 16; TEMP 36.3; O2SAT 98
--- NOTE | 2024-11-21 | ECG_ITS ---
Test Reason : check qtc Blood Pressure : */* mmHG Vent. Rate : 80 BPM Atrial Rate : 80 BPM P-R Int : 184 ms QRS Dur : 116 ms QT Int : 452 ms P-R-T Axes : 78 25 192 degrees QTcB Int : 521 ms Normal sinus rhythm Left ventricular hypertrophy with QRS widening and repolarization abnormality ( Sokolow-Vences , [place] product ) Prolonged QT Abnormal ECG When compared with ECG of 20-Nov-2024 10:56, ND interval has decreased Referred By: Kevin Cha Electronically Signed By: JEREMIAS MARTIN MD
[2024-11-21 03:53] VITALS: BP 136/65; PULSE 68; RESP 16; TEMP 36.2; O2SAT 97
[2024-11-21] MEDS: Omeprazole 40 MG CAPSULE.DR PO ×2 (06:48→17:05)
[2024-11-21 07:24] LABS: Anion Gap 14 (12-20); Blood Urea Nitrogen 35 mg/dL (9-16); Calcium 9.2 mg/dL (8.4-10.2); Carbon Dioxide 27 mmol/L (22-29); Chloride 105 mmol/L (96-108); Estimated Glomerular Filt Rate 39; Glucose Random 170 mg/dL (60-115); Potassium 3.1 mmol/L (3.3-5.1); Sodium 143 mmol/L (135-145)
[2024-11-21 07:39] VITALS: BP 119/66; PULSE 80; RESP 18; TEMP 36.2; O2SAT 98
[2024-11-21 07:57] LABS: Glucose, Whole Blood 170 mg/dL (60-115)
[2024-11-21] MEDS: Lactated Ringers 1,000 ML 100 ML IVCONT ×2 (08:24→22:06)
[2024-11-21] MEDS: Insulin Lispro 100 UNIT/ML 3 ML VIAL SUBCUT ×3 (08:48→22:03)
[2024-11-21] MEDS: Potassium Chloride ER 20 MEQ TAB.ER.PRT 40 MEQ PO (08:48)
[2024-11-21] MEDS: polyethylene glycoL 3350 17 GM POWD.PACK PO (08:48)
[2024-11-21] MEDS: Cholecalciferol (Vitamin D3) 25 MCG TABLET PO (08:49)
[2024-11-21] MEDS: Aspirin Enteric Coated 81 MG TABLET.DR PO (08:49)
[2024-11-21] MEDS: Empagliflozin 10 MG TABLET PO (08:49)
[2024-11-21] MEDS: Metoprolol Succinate ER 100 MG TAB.ER.24H PO (08:49)
[2024-11-21] MEDS: Sennosides/Docusate Sodium TABLET 2 TAB PO (08:49)
--- NOTE | 2024-11-21 09:20 | MHC.CM.PN ---
Addendum entered by Krista Mendoza 11/21/24 09:25: Patient may benefit from a Care Team Consult r/t SI. Original Note: CM met with Patient at bedside and addressed IMM with him, providing Patient with the original and a copy has been placed on the chart. Patient lives in a [facility] and returning there is the goal; CM has initiated and will follow for dc planning. PCP is Dr. Regan Hogue and transport back to [facility] is via [facility] staff vs S.HCP is [facility].
--- NOTE | 2024-11-21 09:32 | P.PNIM_ITS ---
Subjective Subjective Date of Service: 11/21/24 Interval History: seen and examined not conversing much denies cardiac or resp complaints sitter bedside Physical Exam 2 Vital Signs: Vital Signs: Last Vital Signs Temp 97.1 F 11/21/24 07:39 Pulse 80 11/21/24 07:39 Resp 18 11/21/24 07:39 BP 119/66 11/21/24 07:39 Pulse Ox 98 11/21/24 07:39 O2 Del Method Nasal Cannula 11/21/24 07:39 O2 Flow Rate 2 11/21/24 07:39 BMI result Body Mass Index 34.9 Const: Other: General - no acute distress, appears comfortable Cardiovascular - regular rate and rhythm, S1-S2 Lungs - normal respiratory effort, clear to auscultation bilaterally, no wheezing Abdomen - soft, nontender, no rebound or guarding Extremities - no edema bilaterally Neuro - awake and alert, no focal deficits Objective Data Active Medications Acetaminophen (Acetaminophen 325 Mg Tablet) 650 mg PO Q6H PRN PRN Reason: Pain, Mild 1-3,fever,headache Al Hydroxide/Mg Hydroxide (Magnesium Hydrox/Alum Hydrox 30 Ml Oral.Susp) 10 ml PO TID PRN PRN Reason: Indigestion Albuterol Sulfate (Albuterol Sulfate 90 Mcg 8 Gm Inhaler) 2 puff INHALE Q6H PRN PRN Reason: Shortness Of Breath Or Wheezing Aspirin (Aspirin Enteric Coated 81 Mg Tablet.) 81 mg PO DAILY [facility] Last Admin: 11/21/24 08:49 Dose: 81 mg Documented By: HOWIE Atorvastatin Calcium (Atorvastatin Calcium 20 Mg Tablet) 20 mg PO BEDTIME [facility] Last Admin: 11/20/24 21:04 Dose: 20 mg Documented By: TERRY Calcium Carbonate (Calcium Carbonate 750 Mg Tab.Chew) 750 mg PO Q4H PRN PRN Reason: Heartburn Clozapine (Clozapine 25 Mg Tablet) 75 mg PO BEDTIME [facility] Last Admin: 11/20/24 21:04 Dose: 75 mg Documented By: TERRY Clozapine (Clozapine 100 Mg Tablet) 100 mg PO DAILY@1999 [facility] Last Admin: 11/20/24 21:04 Dose: 100 mg Documented By: TERRY Dextrose (Dextrose 50 % 25 Gm/50 Ml Syringe) 25 gm IVPUSH Q15M PRN; Protocol PRN Reason: per Hypoglycemia Standing Ord. Empagliflozin (Empagliflozin 10 Mg Tablet) 10 mg PO DAILY [facility] Last Admin: 11/21/24 08:49 Dose: 10 mg Documented By: HOWIE Enoxaparin Sodium (Enoxaparin Sodium 40 Mg/0.4 Ml Syringe) 40 mg SUBCUT Q24H [facility] Last Admin: 11/20/24 13:49 Dose: 40 mg Documented By: SHANTI Glucose (Glucose Gel 15 Gm Gel..Gram.) 15 gm PO Q15M PRN; Protocol PRN Reason: per Hypoglycemia Standing Ord. Lactated Ringer's (Lr) 1,000 mls @ 100 mls/hr IVCONT .Q10H [facility] Last Admin: 11/21/24 08:24 Dose: 100 mls/hr Documented By: HOWIE Insulin Glargine (Insulin Glargine,Hum.Rec.Anlog 100 Unit/Ml 10 Ml Vial) 10 unit SUBCUT BEDTIME [facility] Last Admin: 11/20/24 21:04 Dose: 10 unit Documented By: TERRY Insulin Human Lispro (Insulin Lispro 100 Unit/Ml 3 Ml Vial) 0 unit SUBCUT QIDACHS [facility]; Protocol Last Admin: 11/21/24 08:48 Dose: 2 unit Documented By: HOWIE Lurasidone HCl (Lurasidone Hcl 20 Mg Tablet) 60 mg PO BEDTIME [facility] Last Admin: 11/20/24 21:03 Dose: 60 mg Documented By: TERRY Magnesium Hydroxide (Milk Of Magnesia 30 Ml Oral.Susp) 30 ml PO DAILY PRN PRN Reason: Constipation Melatonin (Melatonin 3 Mg Tablet) 6 mg PO BEDTIME PRN PRN Reason: Insomnia Metoprolol Succinate (Metoprolol Succinate Er 100 Mg Tab.Er.24h) 100 mg PO DAILY [facility]; Protocol Last Admin: 11/21/24 08:49 Dose: 100 mg Documented By: HOWIE Nicotine Polacrilex (Nicotine Polacrilex Lozenge 4 Mg Lozenge) 4 mg BUCCAL Q2H PRN PRN Reason: Smoking Cessation Nitroglycerin (Nitroglycerin 0.4 Mg Tab.Subl) 0.4 mg SUBLINGUAL Q5M PRN PRN Reason: Chest Pain Non-Formulary Medication (Linagliptin [Tradjenta]) 5 mg PO DAILY [facility] Omeprazole (Omeprazole 40 Mg Capsule.Dr) 40 mg PO BID@3136,7989 [facility] Last Admin: 11/21/24 06:48 Dose: 40 mg Documented By: ANA Polyethylene Glycol (Polyethylene Glycol 3350 17 Gm Powd.Pack) 17 gm PO DAILY [facility] Last Admin: 11/21/24 08:48 Dose: 17 gm Documented By: HOWIE Senna/Docusate Sodium (Sennosides/Docusate Sodium Tablet) 2 tab PO DAILY [facility] Last Admin: 11/21/24 08:49 Dose: 2 tab Documented By: HOWIE Sodium Chloride (0.9 % Sodium Chloride Flush 3 Ml Syringe) 3 ml IVFLUSH QSHIFT [facility] Last Admin: 11/21/24 09:27 Dose: Not Given Documented By: HOWIE Non-Admin Reason: IV Running Trazodone HCl (Trazodone Hcl 50 Mg Tablet) 50 mg PO BEDTIME [facility] Last Admin: 11/20/24 21:04 Dose: 50 mg Documented By: TERRY Vitamin D (Cholecalciferol (Vitamin D3) 25 Mcg Tablet) 25 mcg PO DAILY [facility] Last Admin: 11/21/24 08:49 Dose: 25 mcg Documented By: HOWIE Labs 11/20/24 10:21 11/21/24 06:35 Labs: Laboratory Results - last 24 hr 11/20/24 11/20/24 11/20/24 10:21 11:29 15:25 MCV 80.2 MCH 26.7 L MCHC 33.2 RDW 15.0 Plt Count 154 L MPV 12.1 Immature Gran % (Auto) 0.3 Neut % (Auto) 77.4 H Lymph % (Auto) 12.0 L Harper % (Auto) 9.0 Eos % (Auto) 0.8 Baso % (Auto) 0.5 Lymph # (Auto) 0.9 L Harper # (Auto) 0.7 Eos # (Auto) 0.1 Baso # (Auto) 0.0 Abs Immat Gran (auto) 0.02 Absolute Neuts (auto) 5.9 Absolute Nucleated RBC 0.000 Nucleated RBC % (auto) 0.0 Hold Purple Top Anion Gap 17 15 Estim Creat Clear Calc 43.7 41.9 Estimated GFR 32 31 POC Glucose Random Glucose 273 H 210 H Calcium 9.9 D 9.8 Magnesium 2.3 Total Bilirubin 0.4 AST 27 ALT 23 Alkaline Phosphatase 79 Total Protein 7.5 Albumin 4.2 Urine Opiates Screen Ur Buprenorphine Scrn Ur Oxycodone Screen Urine Methadone Screen Urine Fentanyl Screen Ur Barbiturates Screen Ur Phencyclidine Scrn Ur Amphetamines Screen U Benzodiazepines Scrn Urine Cocaine Screen U Marijuana (THC) Screen Ethyl Alcohol < 10 Influenza Type A (PCR) NEGATIVE Influenza Type B (PCR) NEGATIVE RSV RNA Qual (PCR) NEGATIVE SARS-CoV-2 RNA (RT-PCR) NEGATIVE 11/20/24 11/20/24 11/20/24 16:11 17:07 20:47 MCV MCH MCHC RDW Plt Count MPV Immature Gran % (Auto) Neut % (Auto) Lymph % (Auto) Harper % (Auto) Eos % (Auto) Baso % (Auto) Lymph # (Auto) Harper # (Auto) Eos # (Auto) Baso # (Auto) Abs Immat Gran (auto) Absolute Neuts (auto) Absolute Nucleated RBC Nucleated RBC % (auto) Hold Purple Top Anion Gap Estim Creat Clear Calc Estimated GFR POC Glucose 174 H 196 H Random Glucose Calcium Magnesium Total Bilirubin AST ALT Alkaline Phosphatase Total Protein Albumin Urine Opiates Screen Not Detected Ur Buprenorphine Scrn Not Detected Ur Oxycodone Screen Not Detected Urine Methadone Screen Not Detected Urine Fentanyl Screen Not Detected Ur Barbiturates Screen Not Detected Ur Phencyclidine Scrn Not Detected Ur Amphetamines Screen Not Detected U Benzodiazepines Scrn Not Detected Urine Cocaine Screen Not Detected U Marijuana (THC) Screen Not Detected Ethyl Alcohol Influenza Type A (PCR) Influenza Type B (PCR) RSV RNA Qual (PCR) SARS-CoV-2 RNA (RT-PCR) 11/21/24 11/21/24 06:35 07:40 MCV MCH MCHC RDW Plt Count MPV Immature Gran % (Auto) Neut % (Auto) Lymph % (Auto) Harper % (Auto) Eos % (Auto) Baso % (Auto) Lymph # (Auto) Harper # (Auto) Eos # (Auto) Baso # (Auto) Abs Immat Gran (auto) Absolute Neuts (auto) Absolute Nucleated RBC Nucleated RBC % (auto) Hold Purple Top SEE NOTE Anion Gap 14 Estim Creat Clear Calc 51.0 Estimated GFR 39 POC Glucose 170 H Random Glucose 170 H Calcium 9.2 D Magnesium Total Bilirubin AST ALT Alkaline Phosphatase Total Protein Albumin Urine Opiates Screen Ur Buprenorphine Scrn Ur Oxycodone Screen Urine Methadone Screen Urine Fentanyl Screen Ur Barbiturates Screen Ur Phencyclidine Scrn Ur Amphetamines Screen U Benzodiazepines Scrn Urine Cocaine Screen U Marijuana (THC) Screen Ethyl Alcohol Influenza Type A (PCR) Influenza Type B (PCR) RSV RNA Qual (PCR) SARS-CoV-2 RNA (RT-PCR) Assessment and Plan (1) Acute kidney injury: Status: Acute Plan Pt is a 59-year-old male with a PMH significant for HTN, insulin-dependent type 2 diabetes, HLD, HOCM, COPD, JUDY?on 2 L NC at night, chronic constipation, schizoaffective disorder, and resident of a senior living who presents to the ED with concerns for decreased appetite, increased depression, and suicidal ideation. Pt will be admitted to the hospital for treatment and further evaluation of JUHI and hypokalemia in the setting of reduced p.o. intake from increasing depression with SI without a specific plan. JUHI Creatinine 2.10 at time of presentation, elevated from 1.04 on 10/02/2024 Secondary to reduced p.o. intake due to increasing depression with passive SI slowly improving, continue IVF Hypokalemia improved with IV and PO yesterday will give 40meq po now QT prolongation has known LVH and prior EKGs showing similar QT hold qt prolonging drugs for now replete electrolytes and recheck ekg -- consider cardiology consult Suicidal ideation Pt reports with increasing depression and SI without specific plan Pt with a long hx psychiatric illness including multiple inpatient psychiatric hospitalizations Last hospitalized here on 01/23-02/04 One-to-one sitter hold qt prolonging meds -- will request psych consult in the mean time Insulin-dependent type 2 diabetes Sliding-scale insulin, Lantus Diabetic diet COPD Not in acute exacerbation Continue home inhalers Cardiomyopathy Continue statin, aspirin HTN Continue metoprolol GERD Continue PPI JUDY On 2L supplemental O2 at bedtime Full Code DVT pptx, lovenox Quality Stroke Does the patient have a stroke diagnosis?: No VTE Prior VTE?: No VTE Risk Level:: Medical - moderate - high VTE Device Contraindication: Treatment Not Indicated VTE Drug Contraindication: N/A - Med Ordered
[2024-11-21 11:23] LABS: Glucose, Whole Blood 220 mg/dL (60-115)
[2024-11-21 11:40] VITALS: BP 137/65; PULSE 81; RESP 16; TEMP 36.1; O2SAT 97
[2024-11-21] MEDS: Enoxaparin Sodium 40 MG/0.4 ML SYRINGE SUBCUT (11:45)
[2024-11-21 15:46] VITALS: BP 126/82; PULSE 71; RESP 16; TEMP 36.1; O2SAT 97
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
[2024-11-21 16:32] LABS: Glucose, Whole Blood 139 mg/dL (60-115)
[2024-11-21] MEDS: Potassium Chloride Packet 20 MEQ PACKET 40 MEQ PO (17:05)
[2024-11-21 19:47] VITALS: BP 117/57; PULSE 78; RESP 20; TEMP 36.4; O2SAT 99
[2024-11-21 20:32] LABS: Glucose, Whole Blood 191 mg/dL (60-115)
[2024-11-21] MEDS: Atorvastatin Calcium 20 MG TABLET PO (21:59)
[2024-11-21] MEDS: Insulin Glargine,Hum.rec.anlog 100 UNIT/ML 10 ML VIAL 10 UNIT SUBCUT (22:03)
[2024-11-22] VITALS: BP 108/54; PULSE 72; RESP 20; TEMP 36.3; O2SAT 97
[2024-11-22 04:00] VITALS: BP 148/74; PULSE 77; RESP 20; TEMP 36.4; O2SAT 96
[2024-11-22] MEDS: Omeprazole 40 MG CAPSULE.DR PO ×2 (06:59→16:33)
--- NOTE | 2024-11-22 07:00 | ECG_ITS ---
Test Reason : arrhythmia Blood Pressure : */* mmHG Vent. Rate : 78 BPM Atrial Rate : 78 BPM P-R Int : 186 ms QRS Dur : 112 ms QT Int : 436 ms P-R-T Axes : 80 29 191 degrees QTcB Int : 497 ms Normal sinus rhythm Left ventricular hypertrophy with repolarization abnormality ( Sokolow-Vences ) Prolonged QT Abnormal ECG When compared with ECG of 21-Nov-2024 08:46, No significant change was found Referred By: Kezia Solo Electronically Signed By: JEREMIAS MARTIN MD
[2024-11-22 07:25] VITALS: BP 149/86; PULSE 78; RESP 18; TEMP 36.3; O2SAT 96
[2024-11-22 07:49] LABS: Hematocrit 36.7 % (42.0-52.0); Hemoglobin 11.4 g/dl (14.0-18.0); Mean Corpuscular HGB Conc 31.1 g/dl (31.0-36.0); Mean Corpuscular Hemoglobin 26.6 pg (27.0-33.0); Mean Corpuscular Volume 85.5 fL (80.0-98.0); Platelet Count 144 X10*3/uL (160-400); Red Blood Count 4.29 X10*6/uL (4.60-5.80); Red Cell Distribution Width 15.3 % (11.0-16.0)
[2024-11-22 08:05] LABS: Anion Gap 13 (12-20); Blood Urea Nitrogen 30 mg/dL (9-16); Calcium 9.4 mg/dL (8.4-10.2); Carbon Dioxide 26 mmol/L (22-29); Chloride 111 mmol/L (96-108); Creatinine Clr Calc Pharmacy 58.5; Estimated Glomerular Filt Rate 45; Glucose Random 154 mg/dL (60-115); Magnesium 2.2 mg/dL (1.6-2.6); Potassium 4.1 mmol/L (3.3-5.1); Sodium 146 mmol/L (135-145)
[2024-11-22] MEDS: Aspirin Enteric Coated 81 MG TABLET.DR PO (08:24)
[2024-11-22] MEDS: polyethylene glycoL 3350 17 GM POWD.PACK PO (08:24)
[2024-11-22] MEDS: Cholecalciferol (Vitamin D3) 25 MCG TABLET PO (08:24)
[2024-11-22] MEDS: Metoprolol Succinate ER 100 MG TAB.ER.24H PO (08:24)
[2024-11-22] MEDS: Sennosides/Docusate Sodium TABLET 2 TAB PO (08:24)
[2024-11-22] MEDS: Empagliflozin 10 MG TABLET PO (08:24)
[2024-11-22] MEDS: Lactated Ringers 1,000 ML 100 ML IVCONT (08:29)
--- NOTE | 2024-11-22 09:00 | HO.PM.IMPN ---
Subjective Subjective Date of Service: 11/22/24 Interval History: No complaint Physical Exam Vital Signs: Vital Signs: Last Vital Signs Temp 97.4 F 11/22/24 07:25 Pulse 78 11/22/24 07:25 Resp 18 11/22/24 07:25 BP 149/86 H 11/22/24 07:25 Pulse Ox 96 11/22/24 07:25 O2 Del Method Room Air 11/22/24 07:25 O2 Flow Rate 2 11/21/24 19:47 BMI result Body Mass Index 34.9 Const: Other: General - no acute distress, appears comfortable Cardiovascular - regular rate and rhythm, S1-S2 Lungs - normal respiratory effort, clear to auscultation bilaterally, no wheezing Abdomen - soft, nontender, no rebound or guarding Extremities - no edema bilaterally Neuro - awake and alert, no focal deficits Objective Data Active Medications Acetaminophen (Acetaminophen 325 Mg Tablet) 650 mg PO Q6H PRN PRN Reason: Pain, Mild 1-3,fever,headache Al Hydroxide/Mg Hydroxide (Magnesium Hydrox/Alum Hydrox 30 Ml Oral.Susp) 10 ml PO TID PRN PRN Reason: Indigestion Albuterol Sulfate (Albuterol Sulfate 90 Mcg 8 Gm Inhaler) 2 puff INHALE Q6H PRN PRN Reason: Shortness Of Breath Or Wheezing Aspirin (Aspirin Enteric Coated 81 Mg Tablet.) 81 mg PO DAILY [facility] Last Admin: 11/22/24 08:24 Dose: 81 mg Documented By: MARELY Atorvastatin Calcium (Atorvastatin Calcium 20 Mg Tablet) 20 mg PO BEDTIME [facility] Last Admin: 11/21/24 21:59 Dose: 20 mg Documented By: ESTELLA Calcium Carbonate (Calcium Carbonate 750 Mg Tab.Chew) 750 mg PO Q4H PRN PRN Reason: Heartburn Clozapine (Clozapine 25 Mg Tablet) 75 mg PO BEDTIME [facility] Last Admin: 11/20/24 21:04 Dose: 75 mg Documented By: TERRY Clozapine (Clozapine 100 Mg Tablet) 100 mg PO DAILY@1999 [facility] Last Admin: 11/20/24 21:04 Dose: 100 mg Documented By: TERRY Dextrose (Dextrose 50 % 25 Gm/50 Ml Syringe) 25 gm IVPUSH Q15M PRN; Protocol PRN Reason: per Hypoglycemia Standing Ord. Empagliflozin (Empagliflozin 10 Mg Tablet) 10 mg PO DAILY [facility] Last Admin: 11/22/24 08:24 Dose: 10 mg Documented By: MARELY Enoxaparin Sodium (Enoxaparin Sodium 40 Mg/0.4 Ml Syringe) 40 mg SUBCUT Q24H [facility] Last Admin: 11/21/24 11:45 Dose: 40 mg Documented By: HOWIE Glucose (Glucose Gel 15 Gm Gel..Gram.) 15 gm PO Q15M PRN; Protocol PRN Reason: per Hypoglycemia Standing Ord. Lactated Ringer's (Lr) 1,000 mls @ 100 mls/hr IVCONT .Q10H [facility] Last Admin: 11/22/24 08:29 Dose: 100 mls/hr Documented By: MARELY Insulin Glargine (Insulin Glargine,Hum.Rec.Anlog 100 Unit/Ml 10 Ml Vial) 10 unit SUBCUT BEDTIME [facility] Last Admin: 11/21/24 22:03 Dose: 10 unit Documented By: ESTELLA Insulin Human Lispro (Insulin Lispro 100 Unit/Ml 3 Ml Vial) 0 unit SUBCUT QIDACHS [facility]; Protocol Last Admin: 11/22/24 08:25 Dose: Not Given Documented By: MARELY Non-Admin Reason: No Insulin Coverage Magnesium Hydroxide (Milk Of Magnesia 30 Ml Oral.Susp) 30 ml PO DAILY PRN PRN Reason: Constipation Melatonin (Melatonin 3 Mg Tablet) 6 mg PO BEDTIME PRN PRN Reason: Insomnia Metoprolol Succinate (Metoprolol Succinate Er 100 Mg Tab.Er.24h) 100 mg PO DAILY [facility]; Protocol Last Admin: 11/22/24 08:24 Dose: 100 mg Documented By: MARELY Nicotine Polacrilex (Nicotine Polacrilex Lozenge 4 Mg Lozenge) 4 mg BUCCAL Q2H PRN PRN Reason: Smoking Cessation Nitroglycerin (Nitroglycerin 0.4 Mg Tab.Subl) 0.4 mg SUBLINGUAL Q5M PRN PRN Reason: Chest Pain Non-Formulary Medication (Linagliptin [Tradjenta]) 5 mg PO DAILY [facility] Omeprazole (Omeprazole 40 Mg Capsule.Dr) 40 mg PO BID@0630,1630 [facility] Last Admin: 11/22/24 06:59 Dose: 40 mg Documented By: ESTELLA Polyethylene Glycol (Polyethylene Glycol 3350 17 Gm Powd.Pack) 17 gm PO DAILY [facility] Last Admin: 11/22/24 08:24 Dose: 17 gm Documented By: MARELY Senna/Docusate Sodium (Sennosides/Docusate Sodium Tablet) 2 tab PO DAILY [facility] Last Admin: 11/22/24 08:24 Dose: 2 tab Documented By: MARELY Sodium Chloride (0.9 % Sodium Chloride Flush 3 Ml Syringe) 3 ml IVFLUSH QSHIFT [facility] Last Admin: 11/22/24 08:25 Dose: Not Given Documented By: MARELY Non-Admin Reason: IV Running Vitamin D (Cholecalciferol (Vitamin D3) 25 Mcg Tablet) 25 mcg PO DAILY [facility] Last Admin: 11/22/24 08:24 Dose: 25 mcg Documented By: MARELY Labs 11/22/24 07:18 11/22/24 07:18 Labs: Laboratory Results - last 24 hr 11/21/24 11/21/24 11/21/24 11:13 16:22 20:27 MCV MCH MCHC RDW Plt Count MPV Absolute Nucleated RBC Nucleated RBC % (auto) Anion Gap Estim Creat Clear Calc Estimated GFR POC Glucose 220 H 139 H 191 H Random Glucose Calcium Magnesium 11/22/24 07:18 MCV 85.5 D MCH 26.6 L MCHC 31.1 RDW 15.3 Plt Count 144 L MPV 13.0 H Absolute Nucleated RBC 0.000 Nucleated RBC % (auto) 0.0 Anion Gap 13 Estim Creat Clear Calc 58.5 Estimated GFR 45 POC Glucose Random Glucose 154 H Calcium 9.4 Magnesium 2.2 Assessment and Plan (1) Acute kidney injury: Status: Acute Plan 59M PMH HTN, insulin-dependent type 2 diabetes, HLD, HOCM, COPD, JUDY?on 2 L NC at night, chronic constipation, schizoaffective disorder, and resident of a [facility] who presented to the ED with concerns for decreased appetite, increased depression, and suicidal ideation. Found to have JUHI and hypokalemia and prolonged QT JUHI Creatinine 2.10 at time of presentation, elevated from 1.04 on 10/02/2024 Secondary to reduced p.o. intake due to increasing depression with passive SI slowly improving, continue IVF Hypokalemia Resolved QT prolongation has known LVH and prior EKGs showing similar QT Monitoring EKG Psychiatry appreciated meds adjusted Suicidal ideation Pt reports with increasing depression and SI without specific plan Pt with a long hx psychiatric illness including multiple inpatient psychiatric hospitalizations Last hospitalized here on 01/23-02/04 One-to-one sitter Insulin-dependent type 2 diabetes Sliding-scale insulin, Lantus Diabetic diet COPD Not in acute exacerbation Continue home inhalers Cardiomyopathy Continue statin, aspirin HTN Continue metoprolol GERD Continue PPI JUDY On 2L supplemental O2 at bedtime Full Code DVT pptx, lovenox reason for continued hospitalization: Monitoring EKG Quality Stroke Does the patient have a stroke diagnosis?: No VTE Prior VTE?: No VTE Risk Level:: Medical - moderate - high VTE Device Contraindication: Treatment Not Indicated VTE Drug Contraindication: N/A - Med Ordered
[2024-11-22 11:22] LABS: Glucose, Whole Blood 172 mg/dL (60-115)
[2024-11-22 11:22] LABS: Glucose, Whole Blood 134 mg/dL (60-115)
[2024-11-22 11:35] VITALS: BP 132/65; PULSE 79; RESP 20; TEMP 36.5; O2SAT 95
[2024-11-22] MEDS: Enoxaparin Sodium 40 MG/0.4 ML SYRINGE SUBCUT (13:01)
[2024-11-22] MEDS: Insulin Lispro 100 UNIT/ML 3 ML VIAL SUBCUT ×2 (13:01→21:00)
[2024-11-22 15:43] VITALS: BP 134/79; PULSE 75; RESP 18; TEMP 36.5; O2SAT 98
[2024-11-22 16:40] LABS: Glucose, Whole Blood 146 mg/dL (60-115)
[2024-11-22 19:44] VITALS: BP 122/58; PULSE 76; RESP 18; TEMP 36.3; O2SAT 94
[2024-11-22 20:18] LABS: Glucose, Whole Blood 156 mg/dL (60-115)
[2024-11-22] MEDS: Insulin Glargine,Hum.rec.anlog 100 UNIT/ML 10 ML VIAL 10 UNIT SUBCUT (21:00)
[2024-11-22] MEDS: Atorvastatin Calcium 20 MG TABLET PO (21:00)
[2024-11-23] VITALS (7 sets, daily range): BP systolic 124–154; BP diastolic 68–94; PULSE 66–80; RESP 17–20; TEMP 36.2–36.7; O2SAT 95–99
--- NOTE | 2024-11-23 | ECG_ITS ---
Test Reason : qt Blood Pressure : */* mmHG Vent. Rate : 74 BPM Atrial Rate : 74 BPM P-R Int : 180 ms QRS Dur : 112 ms QT Int : 444 ms P-R-T Axes : 83 26 174 degrees QTcB Int : 492 ms Normal sinus rhythm Left ventricular hypertrophy with repolizeration abnormality. Prolonged QT Abnormal ECG When compared with ECG of 22-Nov-2024 12:16, No significant change was found Referred By: Shaheen Wheeler Electronically Signed By: BRYSON MAURO
[2024-11-23] MEDS: Omeprazole 40 MG CAPSULE.DR PO ×2 (05:43→17:02)
[2024-11-23 07:35] LABS: Anion Gap 12 (12-20); Blood Urea Nitrogen 26 mg/dL (9-16); Calcium 9.6 mg/dL (8.4-10.2); Carbon Dioxide 24 mmol/L (22-29); Chloride 115 mmol/L (96-108); Creatinine Clr Calc Pharmacy 64.2; Estimated Glomerular Filt Rate 50; Glucose Random 169 mg/dL (60-115); Potassium 4.2 mmol/L (3.3-5.1); Sodium 147 mmol/L (135-145)
[2024-11-23 07:35] LABS: Glucose, Whole Blood 159 mg/dL (60-115)
[2024-11-23] MEDS: Aspirin Enteric Coated 81 MG TABLET.DR PO (08:30)
[2024-11-23] MEDS: polyethylene glycoL 3350 17 GM POWD.PACK PO (08:30)
[2024-11-23] MEDS: Empagliflozin 10 MG TABLET PO (08:30)
[2024-11-23] MEDS: Cholecalciferol (Vitamin D3) 25 MCG TABLET PO (08:30)
[2024-11-23] MEDS: Metoprolol Succinate ER 100 MG TAB.ER.24H PO (08:30)
[2024-11-23] MEDS: Sennosides/Docusate Sodium TABLET 2 TAB PO (08:30)
[2024-11-23] MEDS: Insulin Lispro 100 UNIT/ML 3 ML VIAL SUBCUT ×2 (08:34→17:02)
--- NOTE | 2024-11-23 10:22 | P.PNIM_ITS ---
Subjective Subjective Date of Service: 11/23/24 Interval History: No complaint Physical Exam 2 Vital Signs: Vital Signs: Last Vital Signs Temp 97.5 F 11/23/24 07:52 Pulse 76 11/23/24 07:52 Resp 20 11/23/24 07:52 BP 154/94 H 11/23/24 07:52 Pulse Ox 97 11/23/24 07:52 O2 Del Method Room Air 11/23/24 07:52 O2 Flow Rate 2 11/21/24 19:47 BMI result Body Mass Index 34.9 Const: Other: General - no acute distress, appears comfortable Cardiovascular - regular rate and rhythm, S1-S2 Lungs - normal respiratory effort, clear to auscultation bilaterally, no wheezing Abdomen - soft, nontender, no rebound or guarding Extremities - no edema bilaterally Neuro - awake and alert, no focal deficits Objective Data Active Medications Acetaminophen (Acetaminophen 325 Mg Tablet) 650 mg PO Q6H PRN PRN Reason: Pain, Mild 1-3,fever,headache Al Hydroxide/Mg Hydroxide (Magnesium Hydrox/Alum Hydrox 30 Ml Oral.Susp) 10 ml PO TID PRN PRN Reason: Indigestion Albuterol Sulfate (Albuterol Sulfate 90 Mcg 8 Gm Inhaler) 2 puff INHALE Q6H PRN PRN Reason: Shortness Of Breath Or Wheezing Aspirin (Aspirin Enteric Coated 81 Mg Tablet.Dr) 81 mg PO DAILY [facility] Last Admin: 11/23/24 08:30 Dose: 81 mg Documented By: MARELY Atorvastatin Calcium (Atorvastatin Calcium 20 Mg Tablet) 20 mg PO BEDTIME [facility] Last Admin: 11/22/24 21:00 Dose: 20 mg Documented By: ALEJANDRO Calcium Carbonate (Calcium Carbonate 750 Mg Tab.Chew) 750 mg PO Q4H PRN PRN Reason: Heartburn Clozapine (Clozapine 25 Mg Tablet) 75 mg PO BEDTIME [facility] Last Admin: 11/20/24 21:04 Dose: 75 mg Documented By: TERRY Clozapine (Clozapine 100 Mg Tablet) 100 mg PO DAILY@1999 [facility] Last Admin: 11/20/24 21:04 Dose: 100 mg Documented By: TERRY Dextrose (Dextrose 50 % 25 Gm/50 Ml Syringe) 25 gm IVPUSH Q15M PRN; Protocol PRN Reason: per Hypoglycemia Standing Ord. Empagliflozin (Empagliflozin 10 Mg Tablet) 10 mg PO DAILY [facility] Last Admin: 11/23/24 08:30 Dose: 10 mg Documented By: MARELY Enoxaparin Sodium (Enoxaparin Sodium 40 Mg/0.4 Ml Syringe) 40 mg SUBCUT Q24H [facility] Last Admin: 11/22/24 13:01 Dose: 40 mg Documented By: MARELY Glucose (Glucose Gel 15 Gm Gel..Gram.) 15 gm PO Q15M PRN; Protocol PRN Reason: per Hypoglycemia Standing Ord. Lactated Ringer's (Lr) 1,000 mls @ 100 mls/hr IVCONT .Q10H [facility] Last Infusion: 11/22/24 21:01 Dose: Infused Documented By: ALEJANDRO Insulin Glargine (Insulin Glargine,Hum.Rec.Anlog 100 Unit/Ml 10 Ml Vial) 10 unit SUBCUT BEDTIME [facility] Last Admin: 11/22/24 21:00 Dose: 10 unit Documented By: ALEJANDRO Insulin Human Lispro (Insulin Lispro 100 Unit/Ml 3 Ml Vial) 0 unit SUBCUT QIDACHS [facility]; Protocol Last Admin: 11/23/24 08:34 Dose: 2 unit Documented By: MARELY Magnesium Hydroxide (Milk Of Magnesia 30 Ml Oral.Susp) 30 ml PO DAILY PRN PRN Reason: Constipation Melatonin (Melatonin 3 Mg Tablet) 6 mg PO BEDTIME PRN PRN Reason: Insomnia Metoprolol Succinate (Metoprolol Succinate Er 100 Mg Tab.Er.24h) 100 mg PO DAILY [facility]; Protocol Last Admin: 11/23/24 08:30 Dose: 100 mg Documented By: MARELY Nicotine Polacrilex (Nicotine Polacrilex Lozenge 4 Mg Lozenge) 4 mg BUCCAL Q2H PRN PRN Reason: Smoking Cessation Nitroglycerin (Nitroglycerin 0.4 Mg Tab.Subl) 0.4 mg SUBLINGUAL Q5M PRN PRN Reason: Chest Pain Omeprazole (Omeprazole 40 Mg Capsule.Dr) 40 mg PO BID@0630,1630 [facility] Last Admin: 11/23/24 05:43 Dose: 40 mg Documented By: ALEJANDRO Polyethylene Glycol (Polyethylene Glycol 3350 17 Gm Powd.Pack) 17 gm PO DAILY [facility] Last Admin: 11/23/24 08:30 Dose: 17 gm Documented By: MARELY Senna/Docusate Sodium (Sennosides/Docusate Sodium Tablet) 2 tab PO DAILY [facility] Last Admin: 11/23/24 08:30 Dose: 2 tab Documented By: MARELY Sodium Chloride (0.9 % Sodium Chloride Flush 3 Ml Syringe) 3 ml IVFLUSH QSHIFT [facility] Last Admin: 11/23/24 08:35 Dose: Not Given Documented By: MARELY Non-Admin Reason: No Access Vitamin D (Cholecalciferol (Vitamin D3) 25 Mcg Tablet) 25 mcg PO DAILY [facility] Last Admin: 11/23/24 08:30 Dose: 25 mcg Documented By: MARELY Labs 11/22/24 07:18 11/23/24 07:05 Labs: Laboratory Results - last 24 hr 11/22/24 11/22/24 11/22/24 08:18 11:07 16:20 Anion Gap Estim Creat Clear Calc Estimated GFR POC Glucose 134 H 172 H 146 H Random Glucose Calcium 11/22/24 11/23/24 11/23/24 20:14 07:05 07:23 Anion Gap 12 Estim Creat Clear Calc 64.2 Estimated GFR 50 POC Glucose 156 H 159 H Random Glucose 169 H Calcium 9.6 Assessment and Plan (1) Acute kidney injury: Status: Acute Plan 59M PMH HTN, insulin-dependent type 2 diabetes, HLD, HOCM, COPD, JUDY?on 2 L NC at night, chronic constipation, schizoaffective disorder, and resident of a long-term who presented to the ED with concerns for decreased appetite, increased depression, and suicidal ideation. Found to have JUHI and hypokalemia and prolonged QT JUHI Creatinine 2.10 at time of presentation, elevated from 1.04 on 10/02/2024 Secondary to reduced p.o. intake due to increasing depression with passive SI Creatinine improved down to 1.43 Continued to encourage p.o. intake Hypokalemia Resolved QT prolongation has known LVH and prior EKGs showing similar QT QT now below 500 (497) Psychiatry appreciated meds adjusted Suicidal ideation Pt reports with increasing depression and SI without specific plan Pt with a long hx psychiatric illness including multiple inpatient psychiatric hospitalizations Last hospitalized here on 01/23-02/04 One-to-one sitter Medically cleared, care team eval Insulin-dependent type 2 diabetes Sliding-scale insulin, Lantus Diabetic diet COPD Not in acute exacerbation Continue home inhalers Cardiomyopathy Continue statin, aspirin HTN Continue metoprolol GERD Continue PPI JUDY On 2L supplemental O2 at bedtime Full Code DVT pptx, lovenox reason for continued hospitalization: Care team eval Quality Stroke Does the patient have a stroke diagnosis?: No VTE Prior VTE?: No VTE Risk Level:: Medical - moderate - high VTE Device Contraindication: Treatment Not Indicated VTE Drug Contraindication: N/A - Med Ordered
[2024-11-23 12:26] LABS: Glucose, Whole Blood 152 mg/dL (60-115)
[2024-11-23] MEDS: Enoxaparin Sodium 40 MG/0.4 ML SYRINGE SUBCUT (12:27)
[2024-11-23 16:54] LABS: Glucose, Whole Blood 161 mg/dL (60-115)
--- NOTE | 2024-11-23 17:51 | MHC.CARE ---
Patient evaluated by the CARE Team, he does not require an inpatient psychiatric admission for symptom management. Provider Dr. Summer gomez
[2024-11-23] MEDS: Atorvastatin Calcium 20 MG TABLET PO (20:22)
[2024-11-23] MEDS: Insulin Glargine,Hum.rec.anlog 100 UNIT/ML 10 ML VIAL 10 UNIT SUBCUT (20:22)
[2024-11-23 20:25] LABS: Glucose, Whole Blood 130 mg/dL (60-115)
[2024-11-24] MEDS: Melatonin 3 MG TABLET 6 MG PO (01:21)
[2024-11-24 03:02] VITALS: BP 126/63; PULSE 72; RESP 18; TEMP 36; O2SAT 96
[2024-11-24] MEDS: Omeprazole 40 MG CAPSULE.DR PO ×2 (06:32→17:24)
[2024-11-24 07:03] VITALS: BP 147/72; PULSE 76; RESP 17; TEMP 36.5; O2SAT 95
[2024-11-24 07:12] LABS: Glucose, Whole Blood 150 mg/dL (60-115)
[2024-11-24] MEDS: Metoprolol Succinate ER 100 MG TAB.ER.24H PO (08:22)
[2024-11-24] MEDS: Aspirin Enteric Coated 81 MG TABLET.DR PO (08:22)
[2024-11-24] MEDS: Cholecalciferol (Vitamin D3) 25 MCG TABLET PO (08:23)
[2024-11-24] MEDS: Empagliflozin 10 MG TABLET PO (08:23)
[2024-11-24] MEDS: polyethylene glycoL 3350 17 GM POWD.PACK PO (08:24)
[2024-11-24] MEDS: Sennosides/Docusate Sodium TABLET 2 TAB PO (08:25)
--- NOTE | 2024-11-24 09:55 | HO.PM.IMPN ---
Subjective Subjective Date of Service: 11/24/24 Interval History: No complaint Physical Exam Vital Signs: Vital Signs: Last Vital Signs Temp 97.7 F 11/24/24 07:03 Pulse 76 11/24/24 07:03 Resp 17 11/24/24 07:03 BP 147/72 H 11/24/24 07:03 Pulse Ox 95 11/24/24 07:03 O2 Del Method Room Air 11/24/24 07:03 O2 Flow Rate 2 11/21/24 19:47 BMI result Body Mass Index 34.9 Const: Other: General - no acute distress, appears comfortable Cardiovascular - regular rate and rhythm, S1-S2 Lungs - normal respiratory effort, clear to auscultation bilaterally, no wheezing Abdomen - soft, nontender, no rebound or guarding Extremities - no edema bilaterally Neuro - awake and alert, no focal deficits Objective Data Active Medications Acetaminophen (Acetaminophen 325 Mg Tablet) 650 mg PO Q6H PRN PRN Reason: Pain, Mild 1-3,fever,headache Al Hydroxide/Mg Hydroxide (Magnesium Hydrox/Alum Hydrox 30 Ml Oral.Susp) 10 ml PO TID PRN PRN Reason: Indigestion Albuterol Sulfate (Albuterol Sulfate 90 Mcg 8 Gm Inhaler) 2 puff INHALE Q6H PRN PRN Reason: Shortness Of Breath Or Wheezing Aspirin (Aspirin Enteric Coated 81 Mg Tablet.) 81 mg PO DAILY [facility] Last Admin: 11/24/24 08:22 Dose: 81 mg Documented By: MAICO Atorvastatin Calcium (Atorvastatin Calcium 20 Mg Tablet) 20 mg PO BEDTIME [facility] Last Admin: 11/23/24 20:22 Dose: 20 mg Documented By: NEISHA Calcium Carbonate (Calcium Carbonate 750 Mg Tab.Chew) 750 mg PO Q4H PRN PRN Reason: Heartburn Clozapine (Clozapine 25 Mg Tablet) 75 mg PO BEDTIME [facility] Last Admin: 11/20/24 21:04 Dose: 75 mg Documented By: TERRY Clozapine (Clozapine 100 Mg Tablet) 100 mg PO DAILY@1999 [facility] Last Admin: 11/20/24 21:04 Dose: 100 mg Documented By: TERRY Dextrose (Dextrose 50 % 25 Gm/50 Ml Syringe) 25 gm IVPUSH Q15M PRN; Protocol PRN Reason: per Hypoglycemia Standing Ord. Empagliflozin (Empagliflozin 10 Mg Tablet) 10 mg PO DAILY [facility] Last Admin: 11/24/24 08:23 Dose: 10 mg Documented By: MAICO Enoxaparin Sodium (Enoxaparin Sodium 40 Mg/0.4 Ml Syringe) 40 mg SUBCUT Q24H [facility] Last Admin: 11/23/24 12:27 Dose: 40 mg Documented By: MARELY Glucose (Glucose Gel 15 Gm Gel..Gram.) 15 gm PO Q15M PRN; Protocol PRN Reason: per Hypoglycemia Standing Ord. Insulin Glargine (Insulin Glargine,Hum.Rec.Anlog 100 Unit/Ml 10 Ml Vial) 10 unit SUBCUT BEDTIME [facility] Last Admin: 11/23/24 20:22 Dose: 10 unit Documented By: NEISHA Insulin Human Lispro (Insulin Lispro 100 Unit/Ml 3 Ml Vial) 0 unit SUBCUT QIDACHS [facility]; Protocol Last Admin: 11/24/24 08:27 Dose: Not Given Documented By: MAICO Non-Admin Reason: No Access Magnesium Hydroxide (Milk Of Magnesia 30 Ml Oral.Susp) 30 ml PO DAILY PRN PRN Reason: Constipation Melatonin (Melatonin 3 Mg Tablet) 6 mg PO BEDTIME PRN PRN Reason: Insomnia Last Admin: 11/24/24 01:21 Dose: 6 mg Documented By: NEISHA Metoprolol Succinate (Metoprolol Succinate Er 100 Mg Tab.Er.24h) 100 mg PO DAILY [facility]; Protocol Last Admin: 11/24/24 08:22 Dose: 100 mg Documented By: MAICO Nicotine Polacrilex (Nicotine Polacrilex Lozenge 4 Mg Lozenge) 4 mg BUCCAL Q2H PRN PRN Reason: Smoking Cessation Nitroglycerin (Nitroglycerin 0.4 Mg Tab.Subl) 0.4 mg SUBLINGUAL Q5M PRN PRN Reason: Chest Pain Omeprazole (Omeprazole 40 Mg Capsule.Dr) 40 mg PO BID@0630,1630 [facility] Last Admin: 11/24/24 06:32 Dose: 40 mg Documented By: NEISHA Polyethylene Glycol (Polyethylene Glycol 3350 17 Gm Powd.Pack) 17 gm PO DAILY [facility] Last Admin: 11/24/24 08:24 Dose: 17 gm Documented By: MAICO Senna/Docusate Sodium (Sennosides/Docusate Sodium Tablet) 2 tab PO DAILY [facility] Last Admin: 11/24/24 08:25 Dose: 2 tab Documented By: MAICO Sodium Chloride (0.9 % Sodium Chloride Flush 3 Ml Syringe) 3 ml IVFLUSH QSHIFT [facility] Last Admin: 11/24/24 08:27 Dose: Not Given Documented By: MAICO Non-Admin Reason: No Access Vitamin D (Cholecalciferol (Vitamin D3) 25 Mcg Tablet) 25 mcg PO DAILY [facility] Last Admin: 11/24/24 08:23 Dose: 25 mcg Documented By: MAICO Labs 11/22/24 07:18 11/23/24 07:05 Labs: Laboratory Results - last 24 hr 11/23/24 11/23/24 11/23/24 12:21 16:50 20:21 POC Glucose 152 H 161 H 130 H 11/24/24 07:02 POC Glucose 150 H Assessment and Plan (1) Acute kidney injury: Status: Acute Plan 59M PMH HTN, insulin-dependent type 2 diabetes, HLD, HOCM, COPD, JUDY?on 2 L NC at night, chronic constipation, schizoaffective disorder, and resident of a residential who presented to the ED with concerns for decreased appetite, increased depression, and suicidal ideation. Found to have JUHI and hypokalemia and prolonged QT JUHI Creatinine 2.10 at time of presentation, elevated from 1.04 on 10/02/2024 Secondary to reduced p.o. intake due to increasing depression with passive SI Creatinine improved down to 1.43 Continued to encourage p.o. intake Hypokalemia Resolved QT prolongation has known LVH and prior EKGs showing similar QT QT now below 500 (497) Psychiatry appreciated meds adjusted Suicidal ideation Pt reports with increasing depression and SI without specific plan Pt with a long hx psychiatric illness including multiple inpatient psychiatric hospitalizations Last hospitalized here on 01/23-02/04 Medically cleared, care team cleared, but requested voluntary admission Insulin-dependent type 2 diabetes Sliding-scale insulin, Lantus Diabetic diet COPD Not in acute exacerbation Continue home inhalers Cardiomyopathy Continue statin, aspirin HTN Continue metoprolol GERD Continue PPI JUDY On 2L supplemental O2 at bedtime Full Code DVT pptx, lovenox reason for continued hospitalization: requesting volunatary admission to [facility] Stroke Does the patient have a stroke diagnosis?: No VTE Prior VTE?: No VTE Risk Level:: Medical - moderate - high VTE Device Contraindication: Treatment Not Indicated VTE Drug Contraindication: N/A - Med Ordered
[2024-11-24 11:05] VITALS: BP 126/69; PULSE 70; RESP 18; TEMP 36.3; O2SAT 94
[2024-11-24 11:17] LABS: Glucose, Whole Blood 140 mg/dL (60-115)
[2024-11-24] MEDS: Enoxaparin Sodium 40 MG/0.4 ML SYRINGE SUBCUT (13:15)
--- NOTE | 2024-11-24 14:33 | HE.PHANOTE ---
RE: HOLDING CLOZAPINE DOSE Dr. Wheeler still wants the clozapine doses to be held.
[2024-11-24 15:18] VITALS: BP 137/83; PULSE 61; RESP 18; TEMP 36.2; O2SAT 95
[2024-11-24 16:05] LABS: Glucose, Whole Blood 124 mg/dL (60-115)
[2024-11-24 20:00] VITALS: BP 136/76; PULSE 68; RESP 20; TEMP 36.7; O2SAT 95
[2024-11-24 21:35] LABS: Glucose, Whole Blood 142 mg/dL (60-115)
[2024-11-24] MEDS: Insulin Glargine,Hum.rec.anlog 100 UNIT/ML 10 ML VIAL 10 UNIT SUBCUT (21:39)
[2024-11-24] MEDS: Atorvastatin Calcium 20 MG TABLET PO (21:40)
[2024-11-25] VITALS: BP 141/75; PULSE 69; RESP 20; TEMP 36.7; O2SAT 94
[2024-11-25 04:00] VITALS: BP 150/76; PULSE 72; RESP 20; TEMP 37.6; O2SAT 93
[2024-11-25] MEDS: Omeprazole 40 MG CAPSULE.DR PO ×2 (06:24→17:13)
[2024-11-25 07:16] VITALS: BP 135/93; PULSE 69; RESP 18; TEMP 36.9; O2SAT 97
[2024-11-25 07:32] LABS: Glucose, Whole Blood 149 mg/dL (60-115)
--- NOTE | 2024-11-25 08:50 | P.PNIM_ITS ---
Subjective Subjective Date of Service: 11/25/24 Interval History: No complaint Physical Exam 2 Vital Signs: Vital Signs: Last Vital Signs Temp 98.4 F 11/25/24 07:16 Pulse 69 11/25/24 07:16 Resp 18 11/25/24 07:16 BP 135/93 H 11/25/24 07:16 Pulse Ox 97 11/25/24 07:16 O2 Del Method Room Air 11/25/24 07:16 O2 Flow Rate 2 11/21/24 19:47 BMI result Body Mass Index 34.9 Const: Other: General - no acute distress, appears comfortable Cardiovascular - regular rate and rhythm, S1-S2 Lungs - normal respiratory effort, clear to auscultation bilaterally, no wheezing Abdomen - soft, nontender, no rebound or guarding Extremities - no edema bilaterally Neuro - awake and alert, no focal deficits Objective Data Active Medications Acetaminophen (Acetaminophen 325 Mg Tablet) 650 mg PO Q6H PRN PRN Reason: Pain, Mild 1-3,fever,headache Al Hydroxide/Mg Hydroxide (Magnesium Hydrox/Alum Hydrox 30 Ml Oral.Susp) 10 ml PO TID PRN PRN Reason: Indigestion Albuterol Sulfate (Albuterol Sulfate 90 Mcg 8 Gm Inhaler) 2 puff INHALE Q6H PRN PRN Reason: Shortness Of Breath Or Wheezing Aspirin (Aspirin Enteric Coated 81 Mg Tablet.Dr) 81 mg PO DAILY [facility] Last Admin: 11/24/24 08:22 Dose: 81 mg Documented By: MAICO Atorvastatin Calcium (Atorvastatin Calcium 20 Mg Tablet) 20 mg PO BEDTIME [facility] Last Admin: 11/24/24 21:40 Dose: 20 mg Documented By: SINDHU Calcium Carbonate (Calcium Carbonate 750 Mg Tab.Chew) 750 mg PO Q4H PRN PRN Reason: Heartburn Clozapine (Clozapine 25 Mg Tablet) 75 mg PO BEDTIME [facility] Last Admin: 11/20/24 21:04 Dose: 75 mg Documented By: TERRY Clozapine (Clozapine 100 Mg Tablet) 100 mg PO DAILY@1999 [facility] Last Admin: 11/20/24 21:04 Dose: 100 mg Documented By: TERRY Dextrose (Dextrose 50 % 25 Gm/50 Ml Syringe) 25 gm IVPUSH Q15M PRN; Protocol PRN Reason: per Hypoglycemia Standing Ord. Empagliflozin (Empagliflozin 10 Mg Tablet) 10 mg PO DAILY [facility] Last Admin: 11/24/24 08:23 Dose: 10 mg Documented By: MAICO Enoxaparin Sodium (Enoxaparin Sodium 40 Mg/0.4 Ml Syringe) 40 mg SUBCUT Q24H [facility] Last Admin: 11/24/24 13:15 Dose: 40 mg Documented By: MAICO Glucose (Glucose Gel 15 Gm Gel..Gram.) 15 gm PO Q15M PRN; Protocol PRN Reason: per Hypoglycemia Standing Ord. Insulin Glargine (Insulin Glargine,Hum.Rec.Anlog 100 Unit/Ml 10 Ml Vial) 10 unit SUBCUT BEDTIME [facility] Last Admin: 11/24/24 21:39 Dose: 10 unit Documented By: SINDHU Insulin Human Lispro (Insulin Lispro 100 Unit/Ml 3 Ml Vial) 0 unit SUBCUT QIDACHS [facility]; Protocol Last Admin: 11/24/24 21:38 Dose: Not Given Documented By: SINDHU Non-Admin Reason: poc 142 Magnesium Hydroxide (Milk Of Magnesia 30 Ml Oral.Susp) 30 ml PO DAILY PRN PRN Reason: Constipation Melatonin (Melatonin 3 Mg Tablet) 6 mg PO BEDTIME PRN PRN Reason: Insomnia Last Admin: 11/24/24 01:21 Dose: 6 mg Documented By: NEISHA Metoprolol Succinate (Metoprolol Succinate Er 100 Mg Tab.Er.24h) 100 mg PO DAILY [facility]; Protocol Last Admin: 11/24/24 08:22 Dose: 100 mg Documented By: MAICO Nicotine Polacrilex (Nicotine Polacrilex Lozenge 4 Mg Lozenge) 4 mg BUCCAL Q2H PRN PRN Reason: Smoking Cessation Nitroglycerin (Nitroglycerin 0.4 Mg Tab.Subl) 0.4 mg SUBLINGUAL Q5M PRN PRN Reason: Chest Pain Omeprazole (Omeprazole 40 Mg Capsule.Dr) 40 mg PO BID@0630,1630 [facility] Last Admin: 11/25/24 06:24 Dose: 40 mg Documented By: SINDHU Polyethylene Glycol (Polyethylene Glycol 3350 17 Gm Powd.Pack) 17 gm PO DAILY [facility] Last Admin: 11/24/24 08:24 Dose: 17 gm Documented By: MAICO Senna/Docusate Sodium (Sennosides/Docusate Sodium Tablet) 2 tab PO DAILY [facility] Last Admin: 11/24/24 08:25 Dose: 2 tab Documented By: MAICO Sodium Chloride (0.9 % Sodium Chloride Flush 3 Ml Syringe) 3 ml IVFLUSH QSHIFT [facility] Last Admin: 11/25/24 01:23 Dose: Not Given Documented By: SINDHU Non-Admin Reason: No Access Vitamin D (Cholecalciferol (Vitamin D3) 25 Mcg Tablet) 25 mcg PO DAILY [facility] Last Admin: 11/24/24 08:23 Dose: 25 mcg Documented By: MAICO Labs 11/22/24 07:18 11/23/24 07:05 Labs: Laboratory Results - last 24 hr 11/24/24 11/24/24 11/24/24 11:07 16:01 21:27 POC Glucose 140 H 124 H 142 H 11/25/24 07:18 POC Glucose 149 H Assessment and Plan (1) Acute kidney injury: Status: Acute Plan 59M PMH HTN, insulin-dependent type 2 diabetes, HLD, HOCM, COPD, JUDY?on 2 L NC at night, chronic constipation, schizoaffective disorder, and resident of a half-way who presented to the ED with concerns for decreased appetite, increased depression, and suicidal ideation. Found to have JUHI and hypokalemia and prolonged QT JUHI Creatinine 2.10 at time of presentation, elevated from 1.04 on 10/02/2024 Secondary to reduced p.o. intake due to increasing depression with passive SI Creatinine improved down to 1.43 Continued to encourage p.o. intake Hypokalemia Resolved QT prolongation has known LVH and prior EKGs showing similar QT QT now below 500 (497) Psychiatry appreciated qt prolonging meds held Suicidal ideation Pt reports with increasing depression and SI without specific plan Pt with a long hx psychiatric illness including multiple inpatient psychiatric hospitalizations Last hospitalized here on 01/23-02/04 Medically cleared, care team cleared, but requested voluntary admission Insulin-dependent type 2 diabetes Sliding-scale insulin, Lantus Diabetic diet COPD Not in acute exacerbation Continue home inhalers Cardiomyopathy Continue statin, aspirin HTN Continue metoprolol GERD Continue PPI JUDY On 2L supplemental O2 at bedtime Full Code DVT pptx, lovenox reason for continued hospitalization: requesting vol[facility]atary admission to [facility] Stroke Does the patient have a stroke diagnosis?: No VTE Prior VTE?: No VTE Risk Level:: Medical - moderate - high VTE Device Contraindication: Treatment Not Indicated VTE Drug Contraindication: N/A - Med Ordered
[2024-11-25] MEDS: Empagliflozin 10 MG TABLET PO (10:34)
[2024-11-25] MEDS: Aspirin Enteric Coated 81 MG TABLET.DR PO (10:34)
[2024-11-25] MEDS: Metoprolol Succinate ER 100 MG TAB.ER.24H PO (10:34)
[2024-11-25] MEDS: Cholecalciferol (Vitamin D3) 25 MCG TABLET PO (10:34)
[2024-11-25] MEDS: polyethylene glycoL 3350 17 GM POWD.PACK PO (10:35)
[2024-11-25] MEDS: Sennosides/Docusate Sodium TABLET 2 TAB PO (10:35)
[2024-11-25 11:15] VITALS: BP 126/65; PULSE 76; RESP 18; TEMP 36.2; O2SAT 95
[2024-11-25 11:16] LABS: Glucose, Whole Blood 180 mg/dL (60-115)
[2024-11-25] MEDS: Insulin Lispro 100 UNIT/ML 3 ML VIAL SUBCUT (13:23)
[2024-11-25] MEDS: Enoxaparin Sodium 40 MG/0.4 ML SYRINGE SUBCUT (13:24)
[2024-11-25 16:00] VITALS: PULSE 76; RESP 18; TEMP 36.2; O2SAT 96
--- NOTE | 2024-11-25 16:48 | MHC.CARE ---
Patient will be ADULT IPLOC. [id number] in chart for safety.
[2024-11-25 16:51] LABS: Glucose, Whole Blood 110 mg/dL (60-115)
[2024-11-25 20:00] VITALS: BP 160/96; PULSE 66; RESP 20; TEMP 36.4; O2SAT 96
[2024-11-25 20:23] LABS: Glucose, Whole Blood 121 mg/dL (60-115)
[2024-11-25] MEDS: Atorvastatin Calcium 20 MG TABLET PO (20:24)
[2024-11-25] MEDS: Melatonin 3 MG TABLET 6 MG PO (20:25)
[2024-11-25] MEDS: Insulin Glargine,Hum.rec.anlog 100 UNIT/ML 10 ML VIAL 10 UNIT SUBCUT (21:35)
[2024-11-26] VITALS: BP 138/83; PULSE 68; RESP 20; TEMP 36.2; O2SAT 96
[2024-11-26 04:00] VITALS: BP 135/80; PULSE 70; RESP 20; TEMP 37.2; O2SAT 94
[2024-11-26 07:41] VITALS: BP 133/80; PULSE 66; RESP 18; TEMP 36.3; O2SAT 94
[2024-11-26 07:54] LABS: Glucose, Whole Blood 110 mg/dL (60-115)
[2024-11-26] MEDS: Aspirin Enteric Coated 81 MG TABLET.DR PO (08:01)
[2024-11-26 08:02] VITALS: BP 133/80; PULSE 66
[2024-11-26] MEDS: Cholecalciferol (Vitamin D3) 25 MCG TABLET PO (08:02)
[2024-11-26] MEDS: polyethylene glycoL 3350 17 GM POWD.PACK PO (08:02)
[2024-11-26] MEDS: Metoprolol Succinate ER 100 MG TAB.ER.24H PO (08:02)
[2024-11-26] MEDS: Empagliflozin 10 MG TABLET PO (08:02)
[2024-11-26] MEDS: Sennosides/Docusate Sodium TABLET 2 TAB PO (08:04)
[2024-11-26 08:43] LABS: Alanine Aminotransferase 22 U/L (0-40); Albumin Level 3.7 g/dL (3.5-5.0); Alkaline Phosphatase 69 U/L (39-117); Anion Gap 14 (12-20); Aspartate Amino Transferase 33 U/L (5-37); Bilirubin Total 0.3 mg/dL (0.0-1.0); Blood Urea Nitrogen 22 mg/dL (9-16); Calcium 8.8 mg/dL (8.4-10.2); Carbon Dioxide 16 mmol/L (22-29); Chloride 118 mmol/L (96-108); Creatinine Clr Calc Pharmacy 76.5; Estimated Glomerular Filt Rate > 60; Glucose Random 121 mg/dL (60-115); Magnesium 2.7 mg/dL (1.6-2.6); Potassium 4.7 mmol/L (3.3-5.1); Sodium 143 mmol/L (135-145); Total Protein 7.2 g/dL (6.5-8.0)
--- NOTE | 2024-11-26 09:20 | P.PNIM_ITS ---
Subjective Subjective Date of Service: 11/26/24 Interval History: No complaint Physical Exam 2 Vital Signs: Vital Signs: Last Vital Signs Temp 97.4 F 11/26/24 07:41 Pulse 66 11/26/24 08:02 Resp 18 11/26/24 07:41 BP 133/80 11/26/24 08:02 Pulse Ox 94 11/26/24 07:41 O2 Del Method Room Air 11/26/24 07:41 O2 Flow Rate 2 11/21/24 19:47 BMI result Body Mass Index 34.9 Const: Other: General - no acute distress, appears comfortable Cardiovascular - regular rate and rhythm, S1-S2 Lungs - normal respiratory effort, clear to auscultation bilaterally, no wheezing Abdomen - soft, nontender, no rebound or guarding Extremities - no edema bilaterally Neuro - awake and alert, no focal deficits Objective Data Active Medications Acetaminophen (Acetaminophen 325 Mg Tablet) 650 mg PO Q6H PRN PRN Reason: Pain, Mild 1-3,fever,headache Al Hydroxide/Mg Hydroxide (Magnesium Hydrox/Alum Hydrox 30 Ml Oral.Susp) 10 ml PO TID PRN PRN Reason: Indigestion Albuterol Sulfate (Albuterol Sulfate 90 Mcg 8 Gm Inhaler) 2 puff INHALE Q6H PRN PRN Reason: Shortness Of Breath Or Wheezing Aspirin (Aspirin Enteric Coated 81 Mg Tablet.) 81 mg PO DAILY [facility] Last Admin: 11/26/24 08:01 Dose: 81 mg Documented By: RUBEN Atorvastatin Calcium (Atorvastatin Calcium 20 Mg Tablet) 20 mg PO BEDTIME [facility] Last Admin: 11/25/24 20:24 Dose: 20 mg Documented By: SINDHU Calcium Carbonate (Calcium Carbonate 750 Mg Tab.Chew) 750 mg PO Q4H PRN PRN Reason: Heartburn Dextrose (Dextrose 50 % 25 Gm/50 Ml Syringe) 25 gm IVPUSH Q15M PRN; Protocol PRN Reason: per Hypoglycemia Standing Ord. Empagliflozin (Empagliflozin 10 Mg Tablet) 10 mg PO DAILY [facility] Last Admin: 11/26/24 08:02 Dose: 10 mg Documented By: RUBEN Enoxaparin Sodium (Enoxaparin Sodium 40 Mg/0.4 Ml Syringe) 40 mg SUBCUT Q24H [facility] Last Admin: 11/25/24 13:24 Dose: 40 mg Documented By: MAICO Glucose (Glucose Gel 15 Gm Gel..Gram.) 15 gm PO Q15M PRN; Protocol PRN Reason: per Hypoglycemia Standing Ord. Insulin Glargine (Insulin Glargine,Hum.Rec.Anlog 100 Unit/Ml 10 Ml Vial) 10 unit SUBCUT BEDTIME [facility] Last Admin: 11/25/24 21:35 Dose: 10 unit Documented By: SINDHU Insulin Human Lispro (Insulin Lispro 100 Unit/Ml 3 Ml Vial) 0 unit SUBCUT QIDACHS [facility]; Protocol Last Admin: 11/26/24 07:55 Dose: Not Given Documented By: RUBEN Non-Admin Reason: No Insulin Coverage Magnesium Hydroxide (Milk Of Magnesia 30 Ml Oral.Susp) 30 ml PO DAILY PRN PRN Reason: Constipation Melatonin (Melatonin 3 Mg Tablet) 6 mg PO BEDTIME PRN PRN Reason: Insomnia Last Admin: 11/25/24 20:25 Dose: 6 mg Documented By: SINDHU Metoprolol Succinate (Metoprolol Succinate Er 100 Mg Tab.Er.24h) 100 mg PO DAILY [facility]; Protocol Last Admin: 11/26/24 08:02 Dose: 100 mg Documented By: RUBEN Nicotine Polacrilex (Nicotine Polacrilex Lozenge 4 Mg Lozenge) 4 mg BUCCAL Q2H PRN PRN Reason: Smoking Cessation Nitroglycerin (Nitroglycerin 0.4 Mg Tab.Subl) 0.4 mg SUBLINGUAL Q5M PRN PRN Reason: Chest Pain Omeprazole (Omeprazole 40 Mg Capsule.Dr) 40 mg PO BID@0630,1630 [facility] Last Admin: 11/26/24 05:47 Dose: Not Given Documented By: SINDHU Non-Admin Reason: Patient Refused Polyethylene Glycol (Polyethylene Glycol 3350 17 Gm Powd.Pack) 17 gm PO DAILY [facility] Last Admin: 11/26/24 08:02 Dose: 17 gm Documented By: RUBEN Senna/Docusate Sodium (Sennosides/Docusate Sodium Tablet) 2 tab PO DAILY [facility] Last Admin: 11/26/24 08:04 Dose: 2 tab Documented By: RUBEN Sodium Chloride (0.9 % Sodium Chloride Flush 3 Ml Syringe) 3 ml IVFLUSH QSHIFT [facility] Last Admin: 11/26/24 07:51 Dose: Not Given Documented By: RUBEN Non-Admin Reason: No Access Vitamin D (Cholecalciferol (Vitamin D3) 25 Mcg Tablet) 25 mcg PO DAILY [facility] Last Admin: 11/26/24 08:02 Dose: 25 mcg Documented By: RUBEN Labs 11/22/24 07:18 11/26/24 08:13 Labs: Laboratory Results - last 24 hr 11/25/24 11/25/24 11/25/24 11:09 16:44 20:17 Anion Gap Estim Creat Clear Calc Estimated GFR POC Glucose 180 H 110 121 H Random Glucose Calcium Magnesium Total Bilirubin AST ALT Alkaline Phosphatase Total Protein Albumin 11/26/24 11/26/24 07:38 08:13 Anion Gap 14 Estim Creat Clear Calc 76.5 Estimated GFR > 60 POC Glucose 110 Random Glucose 121 H Calcium 8.8 D Magnesium 2.7 H Total Bilirubin 0.3 AST 33 ALT 22 Alkaline Phosphatase 69 Total Protein 7.2 Albumin 3.7 Assessment and Plan (1) Acute kidney injury: Status: Acute Plan 59M PMH HTN, insulin-dependent type 2 diabetes, HLD, HOCM, COPD, JUDY?on 2 L NC at night, chronic constipation, schizoaffective disorder, and resident of a [place] [facility] [place] who presented to the ED with concerns for decreased appetite, increased depression, and suicidal ideation. Found to have JUHI and hypokalemia and prolonged QT JUHI Creatinine 2.10 at time of presentation, elevated from 1.04 on 10/02/2024 Secondary to reduced p.o. intake due to increasing depression with passive SI Creatinine improved down to 1.2 Continued to encourage p.o. intake Hypokalemia Resolved QT prolongation has known LVH and prior EKGs showing similar QT QT now below 500 (497) Psychiatry appreciated qt prolonging meds held Suicidal ideation Pt reports with increasing depression and SI without specific plan Pt with a long hx psychiatric illness including multiple inpatient psychiatric hospitalizations Last hospitalized here on 01/23-02/04 Medically cleared, care team cleared, but requested voluntary admission Insulin-dependent type 2 diabetes Sliding-scale insulin, Lantus Diabetic diet COPD Not in acute exacerbation Continue home inhalers Cardiomyopathy Continue statin, aspirin HTN Continue metoprolol GERD Continue PPI JUDY On 2L supplemental O2 at bedtime Full Code DVT pptx, lovenox reason for continued hospitalization: requesting volunatary admission to psych Quality Stroke Does the patient have a stroke diagnosis?: No VTE Prior VTE?: No VTE Risk Level:: Medical - moderate - high VTE Device Contraindication: Treatment Not Indicated VTE Drug Contraindication: N/A - Med Ordered
--- NOTE | 2024-11-26 10:40 | P.DS_ITS ---
DS: Providers Provider Date of Service: 11/26/24 Date of admission: 11/20/24 13:03 Date of discharge: 11/26/24 Primary care physician: Regan Hogue MD Consults: 11/21/24 09:30 Consult to Psychiatry Routine [place]ing [place] [facility] [place] Reason for consultation: on mutiple qt prolonging meds with prolonged QT, ? change meds 11/25/24 10:44 Consult to Psychiatry Routine Consulting Provider[place] [facility] [place] Reason for consultation: follow up: ?voluntary admission, meds on dc 11/25/24 15:15 Inpt CARE Team Crisis Consult Routine Comment: Reason for consultation: IPLOC DS: Diagnosis Discharge Diagnosis (1) Acute kidney injury: Status: Acute DS: Summary Hospital Course Hospital Course: From initial hpi: 59-year-old male with a PMH significant for HTN, insulin-dependent type 2 diabetes, HLD, HOCM, COPD, JUDY on 2 L NC at night, chronic constipation, schizoaffective disorder, and resident of a skilled nursing who presents to the ED with concerns for decreased appetite, increased depression, and suicidal ideation. According to EMS, staff at skilled nursing report pt has had very little food or fluid intake for the past 2 days. Has also had increased depression with SI without plan. Pt himself states he has been eating and drinking lasts for the past 4-5 days. He is unable to articulate why he has not been eating, just shrugs his shoulders. Complains of some lightheadedness and dizziness with standing, as well as lower abdominal discomfort that began earlier today. Some chills but no fever. Pt continues to endorse SI but repeat said he has no specific plan for self-harm. Denies chest pain/pressure, palpitations. No SOB or difficulty breathing. No nausea, vomiting, diarrhea. Reports quit smoking 1 month ago, previously smoking half a pack of cigarettes daily. In the ED pt's vitals stable and WNL. Labs were significant for potassium 2.3, BUN 39, creatinine 2.10 (elevated from 1.04 on 10/02/2024), and glucose 273. No leukocytosis. Stable normocytic anemia of 12.5/37.6. Hepatic function baseline. EKG demonstrated sinus rhythm with first-degree AV block and diffuse T-wave inversions, similar to prior. QTC prolonged at 533, similar to prior. Pt was treated with potassium chloride IV and p.o., and IVF. Pt will be admitted to the hospital for treatment and further evaluation of JUHI and hypokalemia in the setting of reduced p.o. intake from increasing depression with SI without a specific plan. Hospital course: Patient was admitted for acute kidney injury due to decreased intake and furosemide. Furosemide was held was given hydration and creatinine improved to 1.2 at time of discharge. Acute hypokalemia was replaced and resolved. Also noted to have QT prolongation. Was seen by Psychiatry, meds were held and QT now below 500. For chronic diastolic CHF change furosemide to as needed depending on edema and weight gain. For suicide ideation was seen by care team who felt patient did not require involuntary admission, however, patient is interested in voluntary admission and will be discharged to inpatient psychiatry. For diabetes was continued on basal bolus insulin. For COPD was continued on inhalers. For hypertension was continued on metoprolol. For GERD was continued on PPI. For JUDY uses 2 L of oxygen at night. Time Attestation Discharge Coordination Time (in mins): 34 Quality: Safe Use of Opioids Does Pt have an Active Cancer Diagnosis on the Problem List?: No Quality: Stroke Does the patient have a stroke diagnosis?: No Physical Exam Vital Signs: Vital Signs: Last Vital Signs Temp 97.4 F 11/26/24 07:41 Pulse 66 11/26/24 08:02 Resp 18 11/26/24 07:41 BP 133/80 11/26/24 08:02 Pulse Ox 94 11/26/24 07:41 O2 Del Method Room Air 11/26/24 07:41 O2 Flow Rate 2 11/21/24 19:47 BMI result Body Mass Index 34.9 Const: Other: General - no acute distress, appears comfortable Cardiovascular - regular rate and rhythm, S1-S2 Lungs - normal respiratory effort, clear to auscultation bilaterally, no wheezing Abdomen - soft, nontender, no rebound or guarding Extremities - no edema bilaterally Neuro - awake and alert, no focal deficits DS: Data Data Completed and Pending Completed studies during hospitalization [Text1]: Procedures Assistance with Respiratory Ventilation, Less than 24 Consecutive Hours, Continuous Positive Airway Pressure (05/27/24) Drainage of Spinal Canal, Percutaneous Approach, Diagnostic (01/15/24) Fluoroscopy of Spinal Cord (01/15/24) Introduction of Remdesivir Anti-infective into Peripheral Vein, Percutaneous Approach, [employer] (09/25/21) Labs on day of discharge: Laboratory Results - last 24 hr 11/25/24 11/25/24 11/25/24 11:09 16:44 20:17 Sodium Potassium Chloride Carbon Dioxide Anion Gap BUN Creatinine Estim Creat Clear Calc Estimated GFR POC Glucose 180 H 110 121 H Random Glucose Calcium Magnesium Total Bilirubin AST ALT Alkaline Phosphatase Total Protein Albumin 11/26/24 11/26/24 07:38 08:13 Sodium 143 Potassium 4.7 Chloride 118 H Carbon Dioxide 16 L Anion Gap 14 BUN 22 H Creatinine 1.20 Estim Creat Clear Calc 76.5 Estimated GFR > 60 POC Glucose 110 Random Glucose 121 H Calcium 8.8 D Magnesium 2.7 H Total Bilirubin 0.3 AST 33 ALT 22 Alkaline Phosphatase 69 Total Protein 7.2 Albumin 3.7 Discharge Plan Discharge Anticipated Discharge Date/Time: 11/26/24 10:36 Patient Disposition: Xfer Other Discharge Diagnosis: juhi, qt prolongation Referrals: Regan Hogue MD [Primary Care Provider] - 1 Week Discharge Medications: Continued aspirin 81 mg tablet,delayed release (DR/EC) 81 mg PO DAILY atorvastatin 20 mg tablet 20 mg PO BEDTIME omeprazole 20 mg capsule,delayed release(DR/EC) 40 mg PO BID@0630,1630 cholecalciferol (vitamin D3) 25 mcg (1,000 unit) tablet 25 mcg PO DAILY insulin glargine [Lantus Solostar U-100 Insulin] 100 unit/mL (3 mL) insulin pen 15 unit subcut BEDTIME Jardiance 10 mg tablet 10 mg PO DAILY alum-mag hydroxide-simeth 200-200-20 mg/5 mL Suspension 10 ml PO TID PRN (Reason: Indigestion) Rx Instructions: administer between meals and at bedtime nicotine (polacrilex) 4 mg Lozenge 4 mg buccal Q2H PRN (Reason: Smoking Cessation) albuterol sulfate 90 mcg/actuation HFA aerosol inhaler 2 puff inhalation Q6H PRN (Reason: Shortness Of Breath Or Wheezing) 30 Days Qty: 1 0RF Tradjenta 5 mg tablet 5 mg PO DAILY 30 Days Qty: 30 0RF (DME) lancets [OneTouch Delica Plus Lancet] 33 gauge misc See Rx Instructions .ROUTE .MEDSUPPLY Qty: 100 5RF Rx Instructions: Use as directed to check blood glucose twice daily. metoprolol succinate 100 mg tablet extended release 24 hr 100 mg PO DAILY 90 Days Qty: 90 1RF Protocol: Hold for SBP/HR < HOLD for SBP < : 90 HOLD for HR < : 60 nitroglycerin 0.4 mg tablet, sublingual 0.4 mg SUBLINGUAL Q5M PRN (Reason: Chest Pain) Qty: 14 0RF Rx Instructions: do not exceed 3 doses per episode (DME) pen needle, diabetic [BD Erica 2nd Gen Pen Needle] 32 gauge x /32 needle See Rx Instructions .ROUTE .MEDSUPPLY Qty: 100 11RF Rx Instructions: As directed to administer lantus insulin once daily polyethylene glycol 3350 17 gram powder in packet 17 g PO DAILY 30 Days Qty: 30 0RF sennosides-docusate sodium [Senna Plus] 8.6-50 mg tablet 2 tab PO DAILY 30 Days Qty: 60 0RF (DME) OneTouch Verio test strips Strip See Rx Instructions .ROUTE .MEDSUPPLY Qty: 100 5RF Rx Instructions: Use as directed to check blood glucose twice daily. (DME) blood-glucose meter [OneTouch Verio Flex meter] [facility] See Rx Instructions .ROUTE .MEDSUPPLY Qty: 1 0RF Rx Instructions: Use as directed to check blood glucose twice daily for Type II diabetes mellitus. acetaminophen [Tylenol] 325 mg tablet 650 mg PO Q6H PRN (Reason: Pain (Scale Score 1-3)) Qty: 60 2RF testosterone 1 % (50 mg/5 gram) gel in packet 1 packet transdermal DAILY 30 Days Qty: 150 5RF Changed furosemide [Lasix] 40 mg tablet 40 mg PO DAILY PRN (Reason: edema, weight gain) 90 Days Qty: 90 0RF Discontinued clozapine 25 mg tablet 75 mg PO BEDTIME lurasidone 60 mg tablet 60 mg PO BEDTIME clozapine 100 mg tablet 100 mg PO DAILY@2000 trazodone 50 mg tablet 50 mg PO BEDTIME 30 Days Qty: 30 0RF Diet: Advance to usual diet Activity on Discharge: As tolerated Stand Alone Forms: Patient Portal Discharge page Print Language: Sudanese Care Plan Goals: manage mood disorder Health Concerns: qt prolongation Plan of Treatment: meds held, plan for inpaitent psych Assessment: see above
[2024-11-26 11:01] VITALS: BP 166/90; PULSE 70; RESP 18; TEMP 36.2; O2SAT 96
[2024-11-26 11:18] LABS: Glucose, Whole Blood 154 mg/dL (60-115)
--- NOTE | 2024-11-26 12:05 | MHC.CM.PN ---
Patient has been medically cleared for dc today to IPLOCtoday. CM met with Patient at bedside and addressed IMM with him, providing Patient with the original and a copy has been placed in the chart.
[2024-11-26] MEDS: Enoxaparin Sodium 40 MG/0.4 ML SYRINGE SUBCUT (12:08)
[2024-11-26] MEDS: Insulin Lispro 100 UNIT/ML 3 ML VIAL SUBCUT (12:08)
== END 2024-11-26 13:23 | disposition other institution (70) | DRG 683 ==
LOC: HO.ED 11:49 → HO.EDOVER 13:10 → HO.IMC 15:12
PROVIDERS: Family Medicine; Admitting Provider Student in an Organized Health Care Education/Training Program; Emergency Provider Emergency Medicine Emergency Medical Services; PCP Internal Medicine; Visit Provider Internal Medicine
DX: N17.9 Acute kidney failure, unspecified (principal); I42.1 Obstructive hypertrophic cardiomyopathy; R45.851 Suicidal ideations; I25.10 Atherosclerotic heart disease of native coronary artery without angina pectoris; E87.6 Hypokalemia; F20.9 Schizophrenia, unspecified; K21.9 Gastro-esophageal reflux disease without esophagitis; J44.9 Chronic obstructive pulmonary disease, unspecified; E11.40 Type 2 diabetes mellitus with diabetic neuropathy, unspecified; I44.0 Atrioventricular block, first degree; D64.9 Anemia, unspecified; G47.33 Obstructive sleep apnea (adult) (pediatric); Z99.81 Dependence on supplemental oxygen; R94.31 Abnormal electrocardiogram [ECG] [EKG]; Z20.822 Contact with and (suspected) exposure to COVID-19; Z87.891 Personal history of nicotine dependence; Z79.4 Long term (current) use of insulin; Z79.82 Long term (current) use of aspirin; Z79.899 Other long term (current) 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
CPT/HCPCS: 0241U; 36415; 74018; 80048; 80053; 80307; 82947; 83735; 85025; 85027; 93005; 99285; J1650; J3480; J7120; S9485

== ENCOUNTER → 2024-11-20 10:49 | Outpatient (BNV) | payer MEDICARE, MEDICAID, SELFPAY | PROVIDERS: Admitting Provider Student in an Organized Health Care Education/Training Program; Emergency Provider Emergency Medicine Emergency Medical Services; PCP Internal Medicine; Visit Provider Internal Medicine Cardiovascular Disease | DX: I44.0 Atrioventricular block, first degree (principal); I51.7 Cardiomegaly | CPT/HCPCS: 93010 ==

== ENCOUNTER 2024-11-20 13:03 | Outpatient (BNV) | payer MEDICARE, MEDICAID, SELFPAY | END 2024-11-21 08:46 | PROVIDERS: Admitting Provider Student in an Organized Health Care Education/Training Program; Emergency Provider Emergency Medicine Emergency Medical Services; PCP Internal Medicine; Visit Provider Internal Medicine Cardiovascular Disease | DX: I51.7 Cardiomegaly (principal) | CPT/HCPCS: 93010 ==

== ENCOUNTER 2024-11-20 13:03 | Outpatient (BNV) | payer MEDICARE, MEDICAID, SELFPAY | END 2024-11-21 17:20 | PROVIDERS: Admitting Provider Student in an Organized Health Care Education/Training Program; Emergency Provider Emergency Medicine Emergency Medical Services; PCP Internal Medicine; Visit Provider Radiology Diagnostic Radiology | DX: R14.0 Abdominal distension (gaseous) (principal) | CPT/HCPCS: 74018 ==

== ENCOUNTER 2024-11-20 13:03 | Outpatient (BNV) | payer MEDICARE, MEDICAID, SELFPAY | END 2024-11-23 10:11 | PROVIDERS: Admitting Provider Student in an Organized Health Care Education/Training Program; Emergency Provider Emergency Medicine Emergency Medical Services; PCP Internal Medicine; Visit Provider Internal Medicine | DX: I51.7 Cardiomegaly (principal) | CPT/HCPCS: 93010 ==

== ENCOUNTER 2024-11-20 13:03 | Outpatient (BNV) | payer MEDICARE, MEDICAID, SELFPAY | END 2024-11-22 07:00 | PROVIDERS: Admitting Provider Student in an Organized Health Care Education/Training Program; Emergency Provider Emergency Medicine Emergency Medical Services; PCP Internal Medicine; Visit Provider Internal Medicine Cardiovascular Disease | DX: I51.7 Cardiomegaly (principal) | CPT/HCPCS: 93010 ==

== ENCOUNTER → 2024-11-20 13:03 | Outpatient (BNV) | payer MEDICARE, MEDICAID, SELFPAY | PROVIDERS: Admitting Provider Student in an Organized Health Care Education/Training Program; Emergency Provider Emergency Medicine Emergency Medical Services; PCP Internal Medicine; Visit Provider Student in an Organized Health Care Education/Training Program | DX: N17.9 Acute kidney failure, unspecified (principal) | CPT/HCPCS: 99223; 99231; 99232 ==

== ENCOUNTER → 2024-11-20 13:03 | Outpatient (BNV) | payer OTHER, SELFPAY | PROVIDERS: Admitting Provider Student in an Organized Health Care Education/Training Program; Emergency Provider Emergency Medicine Emergency Medical Services; PCP Internal Medicine; Visit Provider Social Worker | DX: F20.9 Schizophrenia, unspecified (principal) | CPT/HCPCS: 99232 ==

== ENCOUNTER 2024-11-26 13:34 | Inpatient (IN) | payer OTHER, SELFPAY ==
--- OUTSIDE RECORDS SUMMARY | 2024-11-26 13:57 | XMS_ITS | Encounter Summary ---
Author Organization [facility] Address [address] [place] [address] Care Team Providers Care It Consultant Name Role Phone Regan Hogue MD Primary Care Provider [phone] Encounter Details Date Type Department Care Team (Late st Contact Info) Description 11/04/2024 Lab Requisition [facility] - Main Lab [address] [facility] [employer] [address] Freeman Cerna MD [address] Other terminal operations manager (current) 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 Social History Tobacco Use [...] 9:45 AM EDT Consult Orthopedic Surgery - [address] [phone] Juventino Schneider DPM [address] [id number] documented as of this encounter Procedures Procedure Name Priority Date/Time Associated Diagnosis Comments CBC WITH AUTO DIFFERENTIAL Routine 11/04/2024 6:33 AM EST Other terminal operations manager (current) 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 CBC AND DIFFERENTIAL Routine 11/04/2024 6:33 AM EST Other terminal operations manager (current) 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 documented in this encounter Results * (ABNORMAL) CBC auto differential (11/04/2024 6:33 AM EST) [facility] WBC 7.7 4.8 - 10.8 K/mcL LAB HEMETOLOGY METHOD 11/04/2024 10:21 AM [facility] RBC 3.90(L) 4.50 - 5.50 M/mcL LAB HEMETOLOGY METHOD 11/04/2024 10:21 AM [facility] Hemoglobin 10.4(L) 13.5 - 17.5 g/dL LAB HEMETOLOGY METHOD 11/04/2024 10:21 AM [facility] Hematocrit 34.8(L) 42.0 - 54.0 % LAB HEMETOLOGY METHOD 11/04/2024 10:21 AM [facility] MCV 88.8 79.0 - 98.0 FL LAB HEMETOLOGY METHOD 11/04/2024 10:21 AM [facility] MCH 26.5(L) 27.0 - 32.0 pcg LAB HEMETOLOGY METHOD 11/04/2024 10:21 AM [facility] MCHC 29.9(L) 32.0 - 37.0 g/dL LAB HEMETOLOGY METHOD 11/04/2024 10:21 AM [facility] RDW 16.6(H) 11.0 - 15.0 % LAB HEMETOLOGY METHOD 11/04/2024 10:21 AM [facility] Platelets 131 130 - 400 K/mcL LAB HEMETOLOGY METHOD 11/04/2024 10:21 AM [facility] MPV 13.1(H) 7.0 - 11.0 FL LAB HEMETOLOGY METHOD 11/04/2024 10:21 AM [facility] NRBC 0.0 <1.0 % LAB HEMETOLOGY METHOD 11/04/2024 10:21 AM [facility] NRBC Absolute 0.00 <0.10 K/mcL LAB HEMETOLOGY METHOD 11/04/2024 10:21 AM [facility] Neutrophils Relative 70.9 % LAB HEMETOLOGY METHOD 11/04/2024 10:21 AM [facility] Lymphocytes Relative 17.2 % LAB HEMETOLOGY METHOD 11/04/2024 10:21 AM [facility] Monocytes Relative 9.1 % LAB HEMETOLOGY METHOD 11/04/2024 10:21 AM [facility] Eosinophils Relative 1.8 % LAB HEMETOLOGY METHOD 11/04/2024 10:21 AM [facility] Basophils Relative 0.7 % LAB HEMETOLOGY METHOD 11/04/2024 10:21 AM [facility] Immature Granulocytes Relative 0.3 % LAB HEMETOLOGY METHOD 11/04/2024 10:21 AM [facility] Neutrophils Absolute 5.46 1.50 - 7.00 K/mcL LAB HEMETOLOGY METHOD 11/04/2024 10:21 AM [facility] Lymphocytes Absolute 1.32 1.00 - 5.00 K/mcL LAB HEMETOLOGY METHOD 11/04/2024 10:21 AM [facility] Monocytes Absolute 0.70 0.20 - 1.00 K/mcL LAB HEMETOLOGY METHOD 11/04/2024 10:21 AM [facility] Eosinophils Absolute 0.14 0.00 - 0.50 K/mcL LAB HEMETOLOGY METHOD 11/04/2024 10:21 AM [facility] Basophils Absolute 0.05 0.00 - 0.20 K/mcL LAB HEMETOLOGY METHOD 11/04/2024 10:21 AM [facility] Immature Granulocytes Absolute 0.02 0.00 - 0.03 K/mcL LAB HEMETOLOGY METHOD 11/04/2024 10:21 AM [facility] Blood Venous blood specimen / Unknown Venipuncture / Unknown 11/04/2024 6:33 AM EST 11/04/2024 8:32 AM EST us Freeman Cerna MD LAB BLOOD ORDERABLES Final Resul t [facility] [address] [place] [address], documented in this encounter Visit Diagnoses Diagnosis Other senior care (current) 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 documented in this encounter Care Teams It Consultant Relationship Specialty Start Date End Date Regan Hogue MD [address] [place] [address] Dr [address] [place] PCP - General Internal Medicine 11/12/24 documented as of this encounter
--- OUTSIDE RECORDS SUMMARY | 2024-11-26 13:57 | XMS_ITS | Clinical Summary ---
Author Organization [facility] Address [address] [facility] [address] [place] [address] Phone Care Team Providers Care Burrer Machine Name Role Phone Regan Hogue MD Primary Care Provider [phone] Allergies Active Allergy Reactions Criticality Noted Date Comments Diphenhydramine Other (see comments) 12/19/2023 Haloperidol Other (see comments) 12/19/2023 Shedd Other (see comments) 12/19/2023 Thiothixene (Tiotixene) Other [...] Schizoaffective disorder, not otherwise specifie d 12/20/2023 Shedd adverse reaction <Sequela> 12/20/2023 Acute nontraumatic kidney injury 12/20/2023 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 [address] [phone] Igor Mane MD [address] [phone] Health Maintenance Due Date Last Done Comments [...] Insurance [employer] MEDICARE [employer]ARE Care Teams Burrer Machine Relationship Specialty Start Date End Date Regan Hogue MD [address] [place] [address] PCP - General Internal Medicine 12/20/23
--- OUTSIDE RECORDS SUMMARY | 2024-11-26 13:57 | XMS_ITS | Encounter Summary ---
Author Organization [facility] Address [address] [place] [address] Care Team Providers Care Tread Builder Name Role Phone Regan Hogue MD Primary Care Provider Encounter Details Date Type Department Care Team (Late st Contact Info) Description 10/07/2024 Lab Requisition [facility] - Main Lab 299 [facility] [place] [address] Freeman Cerna MD [address] Other moth exterminator (current) 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 [...] 9:45 AM EDT Consult Orthopedic Surgery - [address] [phone] Juventino Schneider DPM [address] [address] documented as of this encounter Procedures Procedure Name Priority Date/Time Associated Diagnosis Comments CBC WITH AUTO DIFFERENTIAL Routine 10/07/2024 7:40 AM EST Other moth exterminator (current) 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 CBC AND DIFFERENTIAL Routine 10/07/2024 7:40 AM EST Other moth exterminator (current) 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 documented in this encounter Results * (ABNORMAL) CBC auto differential (10/07/2024 7:40 AM EST) [facility] WBC 8.0 4.8 - 10.8 K/mcL LAB HEMETOLOGY METHOD 10/07/2024 12:19 PM [facility] LAB RBC 4.20(L) 4.50 - 5.50 M/mcL LAB HEMETOLOGY METHOD 10/07/2024 12:19 PM [facility] LAB Hemoglobin 11.1(L) 13.5 - 17.5 g/dL LAB HEMETOLOGY METHOD 10/07/2024 12:19 PM [facility] LAB Hematocrit 36.7(L) 42.0 - 54.0 % LAB HEMETOLOGY METHOD 10/07/2024 12:19 PM [facility] LAB MCV 87.0 79.0 - 98.0 FL LAB HEMETOLOGY METHOD 10/07/2024 12:19 PM [facility] LAB MCH 26.3(L) 27.0 - 32.0 pcg LAB HEMETOLOGY METHOD 10/07/2024 12:19 PM [facility] LAB MCHC 30.2(L) 32.0 - 37.0 g/dL LAB HEMETOLOGY METHOD 10/07/2024 12:19 PM [facility] LAB RDW 15.3(H) 11.0 - 15.0 % LAB HEMETOLOGY METHOD 10/07/2024 12:19 PM [facility] LAB Platelets 160 130 - 400 K/mcL LAB HEMETOLOGY METHOD 10/07/2024 12:19 PM [facility] LAB MPV 12.9(H) 7.0 - 11.0 FL LAB HEMETOLOGY METHOD 10/07/2024 12:19 PM [facility] LAB NRBC 0.0 <1.0 % LAB HEMETOLOGY METHOD 10/07/2024 12:19 PM [facility] LAB NRBC Absolute 0.00 <0.10 K/[facility] LAB HEMETOLOGY METHOD 10/07/2024 12:19 PM [facility] LAB Neutrophils Relative 72.5 % LAB HEMETOLOGY METHOD 10/07/2024 12:19 PM [facility] LAB Lymphocytes Relative 16.9 % LAB HEMETOLOGY METHOD 10/07/2024 12:19 PM [facility] LAB Monocytes Relative 7.4 % LAB HEMETOLOGY METHOD 10/07/2024 12:19 PM [facility] LAB Eosinophils Relative 2.1 % LAB HEMETOLOGY METHOD 10/07/2024 12:19 PM [facility] LAB Basophils Relative 0.6 % LAB HEMETOLOGY METHOD 10/07/2024 12:19 PM [facility] LAB Immature Granulocytes Relative 0.5 % LAB HEMETOLOGY METHOD 10/07/2024 12:19 PM [facility] LAB Neutrophils Absolute 5.78 1.50 - 7.00 K/mcL LAB HEMETOLOGY METHOD 10/07/2024 12:19 PM [facility] LAB Lymphocytes Absolute 1.35 1.00 - 5.00 K/mcL LAB HEMETOLOGY METHOD 10/07/2024 12:19 PM [facility] LAB Monocytes Absolute 0.59 0.20 - 1.00 K/mcL LAB HEMETOLOGY METHOD 10/07/2024 12:19 PM [facility] LAB Eosinophils Absolute 0.17 0.00 - 0.50 K/mcL LAB HEMETOLOGY METHOD 10/07/2024 12:19 PM [facility] LAB Basophils Absolute 0.05 0.00 - 0.20 K/mcL LAB HEMETOLOGY METHOD 10/07/2024 12:19 PM [facility] LAB Immature Granulocytes Absolute 0.04(H) 0.00 - 0.03 K/mcL LAB HEMETOLOGY METHOD 10/07/2024 12:19 PM [facility] LAB Blood Venous blood specimen / Unknown Venipuncture / Unknown 10/07/2024 7:40 AM EST 10/07/2024 11:28 AM EST us Freeman Cerna MD LAB BLOOD ORDERABLES Final Resul t [facility] [address] [place] [address], documented in this encounter Visit Diagnoses Diagnosis Other moth exterminator (current) 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 documented in this encounter Care Teams Tread Builder Relationship Specialty Start Date End Date Regan Hogue MD [address] [place] [address] Dr [address] [place] PCP - General Internal Medicine 11/12/24 documented as of this encounter
--- OUTSIDE RECORDS SUMMARY | 2024-11-26 13:57 | XMS_ITS | Clinical Summary ---
Author Organization 299 [facility] Address [address] [place] [address] Phone Care Team Providers Care Mat Maker Name Role Phone Regan Hogue MD Primary Care Provider Encounters Date Type Department Care Team Description 11/04/2024 Lab Requisition [facility] Lab [address] [place] [phone] Freeman Cerna MD Other terminal press operator (current) 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 10/07/2024 Lab Requisition [facility] Lab [address] [place] [phone] Freeman Cerna MD Other terminal press operator (current) 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 09/09/2024 Lab Requisition [facility] Lab [address] [place] [phone] Freeman Cerna MD Other chcf (current) 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 from Last 3 Months [...] 9:45 AM EDT Consult Orthopedic Surgery - [place] [address] [phone] Juventino Schneider, DPSaima 175 [facility] [address] [place] [address] Health Maintenance Due Date Last Done Comments [...] Routine 11/04/2024 6:33 AM EST Other terminal press operator (current) 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 CBC AND DIFFERENTIAL Routine 11/04/2024 6:33 AM EST Other terminal press operator (current) 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 CBC WITH AUTO DIFFERENTIAL Routine 10/07/2024 7:40 AM EST Other terminal press operator (current) 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 CBC AND DIFFERENTIAL Routine 10/07/2024 7:40 AM EST Other chcf (current) 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 CBC WITH AUTO DIFFERENTIAL Routine 09/09/2024 6:39 AM EST Other chcf (current) 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 CBC AND DIFFERENTIAL Routine 09/09/2024 6:39 AM EST Other chcf (current) 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 from Last 3 Months Results * (ABNORMAL) CBC auto differential (11/04/2024 6:33 AM EST) Only the most recent of3 resultswithin the time period is included. [facility] Signature WBC 7.7 4.8 - 10.8 K/mcL LAB HEMETOLOGY METHOD 11/04/2024 10:21 AM [facility] LAB RBC 3.90(L) 4.50 - 5.50 M/mcL LAB HEMETOLOGY METHOD 11/04/2024 10:21 AM [facility] LAB Hemoglobin 10.4(L) 13.5 - 17.5 g/dL LAB HEMETOLOGY METHOD 11/04/2024 10:21 AM [facility] LAB Hematocrit 34.8(L) 42.0 - 54.0 % LAB HEMETOLOGY METHOD 11/04/2024 10:21 AM [facility] LAB MCV 88.8 79.0 - 98.0 FL LAB HEMETOLOGY METHOD 11/04/2024 10:21 AM [facility] LAB MCH 26.5(L) 27.0 - 32.0 pcg LAB HEMETOLOGY METHOD 11/04/2024 10:21 AM [facility] LAB MCHC 29.9(L) 32.0 - 37.0 g/dL LAB HEMETOLOGY METHOD 11/04/2024 10:21 AM [facility] LAB RDW 16.6(H) 11.0 - 15.0 % LAB HEMETOLOGY METHOD 11/04/2024 10:21 AM [facility] LAB Platelets 131 130 - 400 K/mcL LAB HEMETOLOGY METHOD 11/04/2024 10:21 AM [facility] LAB MPV 13.1(H) 7.0 - 11.0 FL LAB HEMETOLOGY METHOD 11/04/2024 10:21 AM [facility] LAB NRBC 0.0 <1.0 % LAB HEMETOLOGY METHOD 11/04/2024 10:21 AM [facility] LAB NRBC Absolute 0.00 <0.10 K/mcL LAB HEMETOLOGY METHOD 11/04/2024 10:21 AM [facility] LAB Neutrophils Relative 70.9 % LAB HEMETOLOGY METHOD 11/04/2024 10:21 AM [facility] LAB Lymphocytes Relative 17.2 % LAB HEMETOLOGY METHOD 11/04/2024 10:21 AM [facility] LAB Monocytes Relative 9.1 % LAB HEMETOLOGY METHOD 11/04/2024 10:21 AM [facility] LAB Eosinophils Relative 1.8 % LAB HEMETOLOGY METHOD 11/04/2024 10:21 AM [facility] LAB Basophils Relative 0.7 % LAB HEMETOLOGY METHOD 11/04/2024 10:21 AM [facility] LAB Immature Granulocytes Relative 0.3 % LAB HEMETOLOGY METHOD 11/04/2024 10:21 AM [facility] LAB Neutrophils Absolute 5.46 1.50 - 7.00 K/mcL LAB HEMETOLOGY METHOD 11/04/2024 10:21 AM EST [facility] Lymphocytes Absolute 1.32 1.00 - 5.00 K/mcL LAB HEMETOLOGY METHOD 11/04/2024 10:21 AM EST [facility] Monocytes Absolute 0.70 0.20 - 1.00 K/[facility] LAB HEMETOLOGY METHOD 11/04/2024 10:21 AM EST [facility] LAB Eosinophils Absolute 0.14 0.00 - 0.50 K/[facility] LAB HEMETOLOGY METHOD 11/04/2024 10:21 AM EST [facility] LAB Basophils Absolute 0.05 0.00 - 0.20 K/[facility] LAB HEMETOLOGY METHOD 11/04/2024 10:21 AM EST [facility] LAB Immature Granulocytes Absolute 0.02 0.00 - 0.03 K/[facility] LAB HEMETOLOGY METHOD 11/04/2024 10:21 AM EST [facility] LAB Blood Venous blood specimen / Unknown Venipuncture / Unknown 11/04/2024 6:33 AM EST 11/04/2024 8:32 AM EST us Freeman Cerna MD LAB BLOOD ORDERABLES Final Resul t [facility] LAB [address] [place] [address], [place] [phone] from Last 3 Months Insurance [place] [facility] [id number] MEDICARE Care Teams Mat Maker Relationship Specialty Start Date End Date Regan Hogue MD [address] [place] [address] [address] [place] PCP - General Internal Medicine 11/12/24
--- OUTSIDE RECORDS SUMMARY | 2024-11-26 13:57 | XMS_ITS | Encounter Summary ---
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 Social History Tobacco Use [...] 9:45 AM EDT Consult Orthopedic Surgery - [place] [phone] [phone] Juventino Schneider DPM [address] [address] documented as of this encounter Procedures Procedure Name Priority Date/Time Associated Diagnosis Comments TRAVEL PHLEBOTOMY FEE Routine 08/12/2024 9:00 AM EST Other skilled nursing (current) 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 CBC WITH AUTO DIFFERENTIAL Routine 08/12/2024 9:00 AM EST 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 CBC AND DIFFERENTIAL Routine 08/12/2024 9:00 AM EST 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 documented in this encounter Results * (ABNORMAL) CBC auto differential (08/12/2024 9:00 AM EST) [facility] WBC 6.5 4.8 - 10.8 K/mcL LAB HEMETOLOGY METHOD 08/12/2024 11:44 AM [facility] LAB RBC 4.30(L) 4.50 - 5.50 M/mcL LAB HEMETOLOGY METHOD 08/12/2024 11:44 AM [facility] LAB Hemoglobin 11.6(L) 13.5 - 17.5 g/dL LAB HEMETOLOGY METHOD 08/12/2024 11:44 AM [facility] LAB Hematocrit 37.1(L) 42.0 - 54.0 % LAB HEMETOLOGY METHOD 08/12/2024 11:44 AM [facility] LAB MCV 86.7 79.0 - 98.0 FL LAB HEMETOLOGY METHOD 08/12/2024 11:44 AM [facility] LAB MCH 27.1 27.0 - 32.0 pcg LAB HEMETOLOGY METHOD 08/12/2024 11:44 AM [facility] LAB MCHC 31.3(L) 32.0 - 37.0 g/dL LAB HEMETOLOGY METHOD 08/12/2024 11:44 AM [facility] LAB RDW 15.7(H) 11.0 - 15.0 % LAB HEMETOLOGY METHOD 08/12/2024 11:44 AM [facility] LAB Platelets 121(L) 130 - 400 K/mcL LAB HEMETOLOGY METHOD 08/12/2024 11:44 AM [facility] LAB MPV 12.6(H) 7.0 - 11.0 FL LAB HEMETOLOGY METHOD 08/12/2024 11:44 AM [facility] LAB NRBC 0.0 <1.0 % LAB HEMETOLOGY METHOD 08/12/2024 11:44 AM [facility] LAB NRBC Absolute 0.00 <0.10 K/mcL LAB HEMETOLOGY METHOD 08/12/2024 11:44 AM [facility] LAB Neutrophils Relative 74.8 % LAB HEMETOLOGY METHOD 08/12/2024 11:44 AM [facility] LAB Lymphocytes Relative 13.3 % LAB HEMETOLOGY METHOD 08/12/2024 11:44 AM [facility] LAB Monocytes Relative 9.4 % LAB HEMETOLOGY METHOD 08/12/2024 11:44 AM [facility] LAB Eosinophils Relative 1.1 % LAB HEMETOLOGY METHOD 08/12/2024 11:44 AM [facility] LAB Basophils Relative 0.6 % LAB HEMETOLOGY METHOD 08/12/2024 11:44 AM [facility] LAB Immature Granulocytes Relative 0.8 % LAB HEMETOLOGY METHOD 08/12/2024 11:44 AM [facility] LAB Neutrophils Absolute 4.86 1.50 - 7.00 K/mcL LAB HEMETOLOGY METHOD 08/12/2024 11:44 AM [facility] LAB Lymphocytes Absolute 0.86(L) 1.00 - 5.00 K/mcL LAB HEMETOLOGY METHOD 08/12/2024 11:44 AM [facility] LAB Monocytes Absolute 0.61 0.20 - 1.00 K/mcL LAB HEMETOLOGY METHOD 08/12/2024 11:44 AM [facility] LAB Eosinophils Absolute 0.07 0.00 - 0.50 K/mcL LAB HEMETOLOGY METHOD 08/12/2024 11:44 AM [facility] LAB Basophils Absolute 0.04 0.00 - 0.20 K/mcL LAB HEMETOLOGY METHOD 08/12/2024 11:44 AM [facility] LAB Immature Granulocytes Absolute 0.05(H) 0.00 - 0.03 K/mcL LAB HEMETOLOGY METHOD 08/12/2024 11:44 AM EST [facility] LAB Blood Venous blood specimen / Unknown Venipuncture / Unknown 08/12/2024 9:00 AM EST 08/12/2024 10:29 AM EST us Freeman Cerna MD LAB BLOOD ORDERABLES Final Resul t Performing Organization Address City/[facility]/ZIP Co de Phone Number [facility] LAB [address] [place] [address], [place] [phone] * Travel phlebotomy fee (08/12/2024 9:00 AM EST) [facility] TRAVEL PHLEBOTOMY FEE Completed 08/12/2024 11:02 AM EST [facility] LAB Blood Venous blood specimen / Unknown Venipuncture / Unknown 08/12/2024 9:00 AM EST 08/12/2024 10:29 AM EST us Freeman Cerna MD LAB BLOOD ORDERABLES Final Resul t Performing Organization Address City/[facility]/ZIP Co de Phone Number [facility] [address] [place] [address], [place] [phone] documented in this encounter Visit Diagnoses Diagnosis 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
--- OUTSIDE RECORDS SUMMARY | 2024-11-26 13:57 | XMS_ITS | Encounter Summary ---
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 Social History Tobacco Use [...] 9:45 AM EDT Consult Orthopedic Surgery - [address] [phone] Juventino Schneider DPM [address] [address] documented as of this encounter Procedures Procedure Name Priority Date/Time Associated Diagnosis Comments CBC WITH AUTO DIFFERENTIAL Routine 09/09/2024 6:39 AM EST 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 CBC AND DIFFERENTIAL Routine 09/09/2024 6:39 AM EST 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 documented in this encounter Results * (ABNORMAL) CBC auto differential (09/09/2024 6:39 AM EST) [facility] WBC 7.0 4.8 - 10.8 K/mcL LAB HEMETOLOGY METHOD 09/09/2024 10:01 AM [facility] LAB RBC 4.20(L) 4.50 - 5.50 M/mcL LAB HEMETOLOGY METHOD 09/09/2024 10:01 AM [facility] LAB Hemoglobin 11.2(L) 13.5 - 17.5 g/dL LAB HEMETOLOGY METHOD 09/09/2024 10:01 AM [facility] LAB Hematocrit 37.2(L) 42.0 - 54.0 % LAB HEMETOLOGY METHOD 09/09/2024 10:01 AM [facility] LAB MCV 88.2 79.0 - 98.0 FL LAB HEMETOLOGY METHOD 09/09/2024 10:01 AM [facility] LAB MCH 26.5(L) 27.0 - 32.0 pcg LAB HEMETOLOGY METHOD 09/09/2024 10:01 AM [facility] LAB MCHC 30.1(L) 32.0 - 37.0 g/dL LAB HEMETOLOGY METHOD 09/09/2024 10:01 AM [facility] LAB RDW 15.7(H) 11.0 - 15.0 % LAB HEMETOLOGY METHOD 09/09/2024 10:01 AM [facility] LAB Platelets 147 130 - 400 K/mcL LAB HEMETOLOGY METHOD 09/09/2024 10:01 AM [facility] LAB MPV 12.8(H) 7.0 - 11.0 FL LAB HEMETOLOGY METHOD 09/09/2024 10:01 AM [facility] LAB NRBC 0.0 <1.0 % LAB HEMETOLOGY METHOD 09/09/2024 10:01 AM [facility] LAB NRBC Absolute 0.00 <0.10 K/mcL LAB HEMETOLOGY METHOD 09/09/2024 10:01 AM [facility] LAB Neutrophils Relative 72.6 % LAB HEMETOLOGY METHOD 09/09/2024 10:01 AM [facility] LAB Lymphocytes Relative 15.3 % LAB HEMETOLOGY METHOD 09/09/2024 10:01 AM [facility] LAB Monocytes Relative 8.9 % LAB HEMETOLOGY METHOD 09/09/2024 10:01 AM [facility] LAB Eosinophils Relative 2.0 % LAB HEMETOLOGY METHOD 09/09/2024 10:01 AM [facility] LAB Basophils Relative 0.6 % LAB HEMETOLOGY METHOD 09/09/2024 10:01 AM [facility] LAB Immature Granulocytes Relative 0.6 % LAB HEMETOLOGY METHOD 09/09/2024 10:01 AM [facility] LAB Neutrophils Absolute 5.08 1.50 - 7.00 K/mcL LAB HEMETOLOGY METHOD 09/09/2024 10:01 AM [facility] LAB Lymphocytes Absolute 1.07 1.00 - 5.00 K/mcL LAB HEMETOLOGY METHOD 09/09/2024 10:01 AM [facility] LAB Monocytes Absolute 0.62 0.20 - 1.00 K/mcL LAB HEMETOLOGY METHOD 09/09/2024 10:01 AM [facility] LAB Eosinophils Absolute 0.14 0.00 - 0.50 K/mcL LAB HEMETOLOGY METHOD 09/09/2024 10:01 AM [facility] LAB Basophils Absolute 0.04 0.00 - 0.20 K/mcL LAB HEMETOLOGY METHOD 09/09/2024 10:01 AM [facility] LAB Immature Granulocytes Absolute 0.04(H) 0.00 - 0.03 K/mcL LAB HEMETOLOGY METHOD 09/09/2024 10:01 AM [facility] LAB Blood Venous blood specimen / Unknown Venipuncture / Unknown 09/09/2024 6:39 AM EST 09/09/2024 9:46 AM EST us Freeman Cerna MD LAB BLOOD ORDERABLES Final Resul t [facility] [address] [place] [address], documented in this encounter Visit Diagnoses Diagnosis 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
[2024-11-26 14:05] VITALS: BP 152/82; PULSE 64; RESP 18; TEMP 36.4; O2SAT 98
[2024-11-26 14:06] VITALS: BMI 35.9
--- NOTE | 2024-11-26 15:02 | PC.ADMIT ---
Addendum entered by Corrie Gross RN 11/26/24 15:31: Pt signed a CV after arrival to unit. Original Note: 59 y/o male admitted from [facility] on a 12a after treatment for JUHI, hypokalemia, and prolonged QT. Pt resides in a shelter and was brought to the hospital after several days of poor appetite, poor oral intake, depression, and SI. Pt was medically cleared today and admitted to for depression and SI. Pt has dx of schizoaffective DO and depression. Pt has medical hx that includes IDDM, COPD, heart failure, JUDY on 2L of oxygen at night. Pt cooperative with safety check. Skin check remarkable for scattered bruising and superficial abrasions. Pt reported a fall one week ago at shelter. Pt stated I did it on purpose in front of the nurse because I wanted to get out of the house. Pt indicated that he was unhappy at shelter. Pt stated that he quit smoking six weeks ago, and is now bothered because they all smoke cigarettes there. Pt stated I get dizzy from the smell now. Pt also indicated he was unhappy because my roommate has hallucinations. Pt stated I came to the POD a week ago but they sent me back to the shelter. Pt indicated that he had resided at shelter for past two years, and that it was a source of stress for him. Pt added They had to put the scissors and knife away last week because he felt unsafe. Pt denied active thoughts to harm self and denied that he had a previous plan. When asked about HI, pt replied That's the worst question anyone has ever been asked. It's either up or down. Pt denied AVH. Pt exhibited difficulty participating in admission process. Pt exhibited significant thought blocking, and at times answers did not align with questions asked. Pt indicated he received Influenza vaccine this season. No NRT ordered as pt is a former nicotine user. Pt denied substance use, and UTOX was negative. Pt placed on fall risk precautions and 15 minute checks.
[2024-11-26 17:19] LABS: Glucose, Whole Blood 128 mg/dL (60-115)
[2024-11-26 20:00] VITALS: BP 142/85; PULSE 68; TEMP 36.9; O2SAT 94
[2024-11-26] MEDS: Insulin Glargine,Hum.rec.anlog 100 UNIT/ML 10 ML VIAL 15 UNIT SUBCUT (20:57)
[2024-11-26] MEDS: Insulin Lispro 100 UNIT/ML 3 ML VIAL SUBCUT (20:57)
[2024-11-26] MEDS: Atorvastatin Calcium 20 MG TABLET PO (20:58)
[2024-11-26] MEDS: traZODone HCL 50 MG TABLET PO (20:58)
[2024-11-26 21:49] LABS: Glucose, Whole Blood 180 mg/dL (60-115)
[2024-11-27] MEDS: Omeprazole 40 MG CAPSULE.DR PO ×2 (06:54→18:17)
[2024-11-27 07:50] VITALS: BP 167/81; PULSE 77; RESP 16; TEMP 36.5; O2SAT 98
[2024-11-27] MEDS: Metoprolol Succinate ER 100 MG TAB.ER.24H PO (07:58)
[2024-11-27] MEDS: Cholecalciferol (Vitamin D3) 25 MCG TABLET PO (07:58)
[2024-11-27] MEDS: Empagliflozin 10 MG TABLET PO (07:58)
[2024-11-27] MEDS: Aspirin 81 MG TAB.CHEW PO (07:58)
[2024-11-27 08:07] LABS: Glucose, Whole Blood 123 mg/dL (60-115)
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
[2024-11-27 10:57] LABS: Neut%MD 82.8 %; Neutrophils Absolute Auto 6.7 x10*3/uL (2.0-8.3)
[2024-11-27 11:05] LABS: Estimated Average Glucose 183 mg/dL; Hemoglobin A1C 202.2736 umol/L; Total Hemoglobin (HGBA1C) 3181.6674 umol/L
[2024-11-27] MEDS: cloZAPine 25 MG TABLET PO ×2 (11:12→22:26)
[2024-11-27 11:17] LABS: Cholesterol 171 mg/dL (<200); HDL Cholesterol 32 mg/dL (>40); LDL Cholesterol Calculated 90 mg/dL (<100); Magnesium 2.4 mg/dL (1.6-2.6); Triglycerides 246 mg/dL (<150)
[2024-11-27 11:34] LABS: Free T4 (Free Thyroxine) 1.14 ng/dL (0.71-1.85); Thyroid Stimulating Hormone 1.25 uIU/mL (0.32-4.0)
[2024-11-27 11:46] LABS: Folate 11.7 ng/mL (> or = 4.0); Vitamin B12 406 pg/mL (200-900)
[2024-11-27 12:26] LABS: Glucose, Whole Blood 200 mg/dL (60-115)
[2024-11-27] MEDS: Insulin Lispro 100 UNIT/ML 3 ML VIAL SUBCUT ×2 (13:02→22:24)
[2024-11-27] MEDS: Lurasidone HCl 20 MG TABLET PO (18:17)
--- NOTE | 2024-11-27 18:26 | PC.NURSE ---
Pt began eating dinner before AC blood sugar could be obtained. Covering provider Dr. Christie notified. Per , blood sugar to be monitored next at .
[2024-11-27 20:00] VITALS: RESP 16
[2024-11-27 20:45] LABS: Glucose, Whole Blood 158 mg/dL (60-115)
[2024-11-27] MEDS: Insulin Glargine,Hum.rec.anlog 100 UNIT/ML 10 ML VIAL 15 UNIT SUBCUT (22:24)
[2024-11-27] MEDS: Atorvastatin Calcium 20 MG TABLET PO (22:26)
[2024-11-28 08:00] VITALS: BP 156/82; PULSE 74; RESP 16; TEMP 36.3; O2SAT 95
[2024-11-28 08:28] LABS: Glucose, Whole Blood 115 mg/dL (60-115)
[2024-11-28] MEDS: cloZAPine 25 MG TABLET PO (08:46)
[2024-11-28] MEDS: Empagliflozin 10 MG TABLET PO (08:46)
[2024-11-28] MEDS: Aspirin 81 MG TAB.CHEW PO (08:46)
[2024-11-28 08:47] VITALS: BP 156/82; PULSE 75
[2024-11-28] MEDS: Metoprolol Succinate ER 100 MG TAB.ER.24H PO (08:47)
[2024-11-28] MEDS: Cholecalciferol (Vitamin D3) 25 MCG TABLET PO (08:47)
[2024-11-28] MEDS: Omeprazole 40 MG CAPSULE.DR PO ×2 (08:47→16:29)
--- NOTE | 2024-11-28 09:35 | P.PNPSI_ITS ---
Subjective Subjective Date of Service: 11/28/24 Reason For Visit: Depression/decomp Interim History: met with patient; discussed with team reports he's depressed but that SI is diminishing; little disorganized and suddenly started talking about BPH. Agrees to continued med titrations. Eating. drinking; says he gets up and walks the halls a few times a day Mental Status Exam Mental Status Exam Narrative: Pt is alert and oriented; behavior is quiet, isolative, cooperative; patient is not in distress; dressed in hospital attire with unkempt but adequate hygiene; mood is described as depressed and affect congruent, downcast; eye contact somewhat avoidant; Speech is quiet, slowed; not pressured; psychomotor retardation present; thought process is goal directed but with thought blocking; Thought content is on feeling sad; no delusional content expressed; currently no SI; no HI. AH is min seems internally preoccupied Patients insight and judgment impaired. Diagnostics Vital Signs (24Hr): Vital Signs - 24 hr 11/27/24 20:00 11/28/24 08:47 Pulse Rate 75 Respiratory Rate 16 Blood Pressure 156/82 H BMI result Body Mass Index 35.9 Labs Labs: Laboratory Results - last 48 hr 11/26/24 11/26/24 11/27/24 17:09 20:47 08:03 Absolute Neuts (auto) POC Glucose 128 H 180 H 123 H Estimat Average Glucose Hemoglobin A1c % Magnesium Triglycerides Cholesterol LDL Cholesterol, Calc HDL Cholesterol Vitamin B12 Folate TSH Free T4 11/27/24 11/27/24 11/27/24 10:47 12:19 20:40 Absolute Neuts (auto) 6.7 POC Glucose 200 H 158 H Estimat Average Glucose 183 Hemoglobin A1c % 8.0 H Magnesium 2.4 Triglycerides 246 H Cholesterol 171 LDL Cholesterol, Calc 90 HDL Cholesterol 32 L Vitamin B12 406 Folate 11.7 TSH 1.25 Free T4 1.14 11/28/24 08:23 Absolute Neuts (auto) POC Glucose 115 Estimat Average Glucose Hemoglobin A1c % Magnesium Triglycerides Cholesterol LDL Cholesterol, Calc HDL Cholesterol Vitamin B12 Folate TSH Free T4 Medications Medications Current Medications Acetaminophen (Acetaminophen 325 Mg Tablet) 650 mg PO Q6H PRN PRN Reason: Headache/Pain, Scale 1-10 Al Hydroxide/Mg Hydroxide (Magnesium Hydrox/Alum Hydrox 30 Ml Oral.Susp) 30 ml PO Q6H PRN PRN Reason: Heartburn/Nausea Albuterol Sulfate (Albuterol Sulfate 90 Mcg 8 Gm Inhaler) 2 puff INHALE RQ6H PRN PRN Reason: sob Aspirin (Aspirin 81 Mg Tab.Chew) 81 mg PO DAILY [facility] Last Admin: 11/28/24 08:46 Dose: 81 mg Atorvastatin Calcium (Atorvastatin Calcium 20 Mg Tablet) 20 mg PO BEDTIME [facility] Last Admin: 11/27/24 22:26 Dose: 20 mg Clozapine (Clozapine 25 Mg Tablet) 25 mg PO BID [facility] Last Admin: 11/28/24 08:46 Dose: 25 mg Dextrose (Dextrose 50 % 25 Gm/50 Ml Syringe) 25 gm IVPUSH Q15M PRN; Protocol PRN Reason: per Hypoglycemia Standing Ord. Empagliflozin (Empagliflozin 10 Mg Tablet) 10 mg PO DAILY [facility] Last Admin: 11/28/24 08:46 Dose: 10 mg Furosemide (Furosemide 40 Mg Tablet) 40 mg PO DAILY PRN; Protocol PRN Reason: edema Glucose (Glucose Gel 15 Gm Gel..Gram.) 15 gm PO Q15M PRN; Protocol PRN Reason: per Hypoglycemia Standing Ord. Insulin Glargine (Insulin Glargine,Hum.Rec.Anlog 100 Unit/Ml 10 Ml Vial) 15 unit SUBCUT BEDTIME [facility] Last Admin: 11/27/24 22:24 Dose: 15 unit Insulin Human Lispro (Insulin Lispro 100 Unit/Ml 3 Ml Vial) 0 unit SUBCUT QIDACHS [facility]; Protocol Last Admin: 11/27/24 22:24 Dose: 2 unit Lurasidone HCl (Lurasidone Hcl 20 Mg Tablet) 20 mg PO DAILY@1800 [facility] Last Admin: 11/27/24 18:17 Dose: 20 mg Magnesium Hydroxide (Milk Of Magnesia 30 Ml Oral.Susp) 30 ml PO DAILY PRN PRN Reason: Constipation Metoprolol Succinate (Metoprolol Succinate Er 100 Mg Tab.Er.24h) 100 mg PO DAILY [facility]; Protocol Last Admin: 11/28/24 08:47 Dose: 100 mg Nicotine (Nicotine 21 Mg Patch.Td24) 21 mg TRANSDERMA DAILY PRN PRN Reason: smoking cessation Nicotine Polacrilex (Nicotine Polacrilex 2 Mg Gum) 4 mg BUCCAL Q2H PRN PRN Reason: Nicotine Cravings Nicotine Polacrilex (Nicotine Polacrilex 2 Mg Gum) 2 mg BUCCAL Q2H PRN PRN Reason: Nicotine Cravings Nitroglycerin (Nitroglycerin 0.4 Mg Tab.Subl) 0.4 mg SUBLINGUAL Q5MX3 PRN PRN Reason: Chest Pain Non-Formulary Medication (Linagliptin) 5 mg PO DAILY [facility] Omeprazole (Omeprazole 40 Mg Capsule.Dr) 40 mg PO BID@0630,1630 [facility] Last Admin: 11/28/24 08:47 Dose: 40 mg Polyethylene Glycol (Polyethylene Glycol 3350 17 Gm Powd.Pack) 17 gm PO DAILY [facility] Last Admin: 11/27/24 08:06 Dose: Not Given Senna (Sennosides 8.6 Mg Tablet) 17.2 mg PO BEDTIME PRN PRN Reason: Constipation Trazodone HCl (Trazodone Hcl 50 Mg Tablet) 50 mg PO BEDTIME MRX1 PRN PRN Reason: Insomnia Last Admin: 11/26/24 20:58 Dose: 50 mg Vitamin D (Cholecalciferol (Vitamin D3) 25 Mcg Tablet) 25 mcg PO DAILY [facility] Last Admin: 11/28/24 08:47 Dose: 25 mcg Allergies Allergies Allergy/AdvReac Type Severity Reaction Status Date / Time lithium [[place]] Allergy Severe Toxicity Verified 11/20/24 09:27 thiothixene Allergy Severe Swelling Verified 11/20/24 09:27 amoxicillin Allergy Mild Nose Bleed Verified 11/20/24 09:27 benztropine Allergy Unknown benztropine Verified 11/20/24 09:27 mesylate- unknown gabapentin [From NEURONTIN] Allergy Unknown Unknown Verified 11/20/24 09:27 fluphenazine [From Prolixin] Allergy Unknown Verified 11/20/24 09:27 barium sulfate AdvReac Intermediate Nausea and Verified 11/20/24 09:27 [BARIUM SULFATE] Vomiting haloperidol AdvReac Intermediate Muscle Verified 11/20/24 09:27 tension in legs diphenhydramine AdvReac Unknown urinary Verified 11/20/24 09:27 [From Benadryl] retention Assessment & Plan Assessment & Plan (1) Schizoaffective disorder, bipolar type: Status: Acute Code(s): F25.0 - Schizoaffective disorder, bipolar type (2) HOCM (hypertrophic obstructive cardiomyopathy): Status: Acute Code(s): I42.1 - Obstructive hypertrophic cardiomyopathy (3) Chronic HFrEF (heart failure with reduced ejection fraction): Status: Acute Code(s): I50.22 - Chronic systolic (congestive) heart failure (4) Coronary artery disease: Qualifiers: Associated angina: with stable angina Coronary Disease-Associated Artery/Lesion type: [place] artery [place] vs. 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: Status: Acute Code(s): E11.9 - Type 2 diabetes mellitus without complications; Z79.4 - ferry terminal supervisor (current) use of insulin (6) Nocturnal hypoxemia: Status: Acute Code(s): G47.34 - Idiopathic sleep related nonobstructive alveolar hypoventilation Plan Patient is a 59-year-old male with history of schizoaffective disorder, bipolar type, DM, essential hypertension HOCM, HLD, COPD JUDY (on 2L O2 q.h.s.), constipation with history of small-bowel obstruction, with hx of severe and aggressive decompensation, typically on both Clozaril and Latuda and on a Community [place], who is a transferred from medical floor following treatment for JUHI/hypokalemia, prolonged QT due to poor fluid intake in the face of depression/SI. Patient has been off his psychiatric medications and remains de pressed though SI seems to be clearing. He says he was very unhappy at his senior living, feeling stressed by several things including his roommate who has psychotic symptoms... He said that due to his depression, the senior living staff had a put away the scissors and knife because he was feeling unsafe. Currently denies SI. Denies AVH. Wants to get back on his medications. Formulation/clinical reasoning: Schizoaffective disorder with manic episodes and history of severe and aggressive decompensation went off medications. Currently QTC is WNL. That said, patient relies on antipsychotics (specifically Clozaril) in order to remain stable and safe. Patient agrees to restarting clozapine and Latuda at this time. Will continue to check QTC Hospital course: 11/28 depressed, isolative, but willing to continue med titration; no SI; says AH is minimal eating/drinking; showered Plan: CV Q 15 minute checks restart Clozaril, and titrate to 175mg total daily dose restart Latuda and titrate to 60mg daily -monitor ANC qweekly for now -monitor QTC Continue other home medications -flomax 0.4mg qhs Patient educated on: diagnosis, medication risk/benefits and medical condition Informed Consent: understands Reason for continued inpatient stay Substantial Risk for: inability to function Time Spent With Patient Time: Total time managing care of this patient today ____ minutes.
[2024-11-28 12:08] LABS: Glucose, Whole Blood 136 mg/dL (60-115)
[2024-11-28 17:21] LABS: Glucose, Whole Blood 149 mg/dL (60-115)
[2024-11-28 19:44] VITALS: BP 156/75; PULSE 74; RESP 18; TEMP 36.6; O2SAT 96
[2024-11-28] MEDS: Lurasidone HCl 40 MG TABLET PO (19:45)
[2024-11-28 21:53] LABS: Glucose, Whole Blood 144 mg/dL (60-115)
[2024-11-28] MEDS: Insulin Glargine,Hum.rec.anlog 100 UNIT/ML 10 ML VIAL 15 UNIT SUBCUT (22:02)
[2024-11-28] MEDS: Atorvastatin Calcium 20 MG TABLET PO (22:03)
[2024-11-28] MEDS: cloZAPine 25 MG TABLET 75 MG PO (22:04)
--- NOTE | 2024-11-29 | ECG_ITS ---
Test Reason : qtc Blood Pressure : */* mmHG Vent. Rate : 71 BPM Atrial Rate : 71 BPM P-R Int : 170 ms QRS Dur : 108 ms QT Int : 434 ms P-R-T Axes : 82 33 185 degrees QTcB Int : 471 ms Normal sinus rhythm Left ventricular hypertrophy with repolizeration abnormality. Abnormal ECG When compared with ECG of 23-Nov-2024 10:11, No significant change was found Referred By: Geraldo Garcia Electronically Signed By: BRYSON MAURO
[2024-11-29] MEDS: Omeprazole 40 MG CAPSULE.DR PO ×2 (07:43→17:45)
[2024-11-29 08:00] VITALS: BP 152/87; PULSE 81; RESP 18; TEMP 36.5; O2SAT 95
[2024-11-29 08:49] LABS: Glucose, Whole Blood 113 mg/dL (60-115)
[2024-11-29] MEDS: Aspirin 81 MG TAB.CHEW PO (09:06)
[2024-11-29] MEDS: Metoprolol Succinate ER 100 MG TAB.ER.24H PO (09:06)
[2024-11-29] MEDS: Empagliflozin 10 MG TABLET PO (09:06)
[2024-11-29] MEDS: cloZAPine 25 MG TABLET PO (09:06)
[2024-11-29] MEDS: Cholecalciferol (Vitamin D3) 25 MCG TABLET PO (09:06)
[2024-11-29 12:17] LABS: Glucose, Whole Blood 137 mg/dL (60-115)
--- NOTE | 2024-11-29 13:28 | HO.PSYCHPN ---
Subjective Subjective Date of Service: 11/29/24 Reason For Visit: Depression/decomp Interim History: met with pt; discussed with team pt says he's good and that his mood is getting better. He denies any SI. Regarding AH he makes appropriate joke saying he does hear voices, this writers. Otherwise no AH. Pt says he's eating better. Lying in bed but pt says he'll get up and walk around after lunch. Mental Status Exam Mental Status Exam Narrative: Pt is alert and oriented; behavior is quiet, isolative, cooperative, more engaged; patient is not in distress; dressed in hospital attire with unkempt but adequate hygiene; mood is described as good and affect congruent, a little brighter; eye contact appropriate; Speech is quiet, slowed; not pressured; psychomotor retardation remains present; thought process is goal directed, more linear and less thought blocking; Thought content is vacuous; no delusional content expressed; currently no SI; no HI. Denies AH; Patients insight and judgment impaired but is improving Diagnostics Vital Signs (24Hr): Vital Signs - 24 hr 11/28/24 19:44 11/29/24 08:00 Temperature 97.9 F 97.7 F Pulse Rate 74 81 Respiratory Rate 18 18 Blood Pressure 156/75 H 152/87 H Pulse Oximetry 96 95 Oxygen Delivery Method Room Air Room Air BMI result Body Mass Index 35.9 Labs Labs: Laboratory Results - last 48 hr 11/27/24 11/28/24 11/28/24 20:40 08:23 11:58 POC Glucose 158 H 115 136 H 11/28/24 11/28/24 11/29/24 17:13 21:00 08:39 POC Glucose 149 H 144 H 113 11/29/24 12:13 POC Glucose 137 H Medications Medications Current Medications Acetaminophen (Acetaminophen 325 Mg Tablet) 650 mg PO Q6H PRN PRN Reason: Headache/Pain, Scale 1-10 Al Hydroxide/Mg Hydroxide (Magnesium Hydrox/Alum Hydrox 30 Ml Oral.Susp) 30 ml PO Q6H PRN PRN Reason: Heartburn/Nausea Albuterol Sulfate (Albuterol Sulfate 90 Mcg 8 Gm Inhaler) 2 puff INHALE RQ6H PRN PRN Reason: sob Aspirin (Aspirin 81 Mg Tab.Chew) 81 mg PO DAILY [facility] Last Admin: 11/29/24 09:06 Dose: 81 mg Atorvastatin Calcium (Atorvastatin Calcium 20 Mg Tablet) 20 mg PO BEDTIME [facility] Last Admin: 11/28/24 22:03 Dose: 20 mg Clozapine (Clozapine 25 Mg Tablet) 25 mg PO DAILY [facility] Last Admin: 11/29/24 09:06 Dose: 25 mg Clozapine (Clozapine 25 Mg Tablet) 75 mg PO BEDTIME [facility] Last Admin: 11/28/24 22:04 Dose: 75 mg Dextrose (Dextrose 50 % 25 Gm/50 Ml Syringe) 25 gm IVPUSH Q15M PRN; Protocol PRN Reason: per Hypoglycemia Standing Ord. Empagliflozin (Empagliflozin 10 Mg Tablet) 10 mg PO DAILY [facility] Last Admin: 11/29/24 09:06 Dose: 10 mg Furosemide (Furosemide 40 Mg Tablet) 40 mg PO DAILY PRN; Protocol PRN Reason: edema Glucose (Glucose Gel 15 Gm Gel..Gram.) 15 gm PO Q15M PRN; Protocol PRN Reason: per Hypoglycemia Standing Ord. Insulin Glargine (Insulin Glargine,Hum.Rec.Anlog 100 Unit/Ml 10 Ml Vial) 15 unit SUBCUT BEDTIME [facility] Last Admin: 11/28/24 22:02 Dose: 15 unit Insulin Human Lispro (Insulin Lispro 100 Unit/Ml 3 Ml Vial) 0 unit SUBCUT QIDACHS [facility]; Protocol Last Admin: 11/29/24 12:26 Dose: Not Given Lurasidone HCl (Lurasidone Hcl 40 Mg Tablet) 40 mg PO DAILY@1800 [facility] Last Admin: 11/28/24 19:45 Dose: 40 mg Magnesium Hydroxide (Milk Of Magnesia 30 Ml Oral.Susp) 30 ml PO DAILY PRN PRN Reason: Constipation Metoprolol Succinate (Metoprolol Succinate Er 100 Mg Tab.Er.24h) 100 mg PO DAILY [facility]; Protocol Last Admin: 11/29/24 09:06 Dose: 100 mg Nicotine (Nicotine 21 Mg Patch.Td24) 21 mg TRANSDERMA DAILY PRN PRN Reason: smoking cessation Nicotine Polacrilex (Nicotine Polacrilex 2 Mg Gum) 4 mg BUCCAL Q2H PRN PRN Reason: Nicotine Cravings Nicotine Polacrilex (Nicotine Polacrilex 2 Mg Gum) 2 mg BUCCAL Q2H PRN PRN Reason: Nicotine Cravings Nitroglycerin (Nitroglycerin 0.4 Mg Tab.Subl) 0.4 mg SUBLINGUAL Q5MX3 PRN PRN Reason: Chest Pain Non-Formulary Medication (Linagliptin) 5 mg PO DAILY [facility] Omeprazole (Omeprazole 40 Mg Capsule.Dr) 40 mg PO BID@0630,1630 [facility] Last Admin: 11/29/24 07:43 Dose: 40 mg Polyethylene Glycol (Polyethylene Glycol 3350 17 Gm Powd.Pack) 17 gm PO DAILY [facility] Last Admin: 11/29/24 09:09 Dose: Not Given Senna (Sennosides 8.6 Mg Tablet) 17.2 mg PO BEDTIME PRN PRN Reason: Constipation Tamsulosin HCl (Tamsulosin Hcl 0.4 Mg Capsule) 0.4 mg PO BEDTIME [facility] Trazodone HCl (Trazodone Hcl 50 Mg Tablet) 50 mg PO BEDTIME MRX1 PRN PRN Reason: Insomnia Last Admin: 11/26/24 20:58 Dose: 50 mg Vitamin D (Cholecalciferol (Vitamin D3) 25 Mcg Tablet) 25 mcg PO DAILY [facility] Last Admin: 11/29/24 09:06 Dose: 25 mcg Allergies Allergies Allergy/AdvReac Type Severity Reaction Status Date / Time lithium [[place]] Allergy Severe Toxicity Verified 11/20/24 09:27 thiothixene Allergy Severe Swelling Verified 11/20/24 09:27 amoxicillin Allergy Mild Nose Bleed Verified 11/20/24 09:27 benztropine Allergy Unknown benztropine Verified 11/20/24 09:27 mesylate- unknown gabapentin [From NEURONTIN] Allergy Unknown Unknown Verified 11/20/24 09:27 fluphenazine [From Prolixin] Allergy Unknown Verified 11/20/24 09:27 barium sulfate AdvReac Intermediate Nausea and Verified 11/20/24 09:27 [BARIUM SULFATE] Vomiting haloperidol AdvReac Intermediate Muscle Verified 11/20/24 09:27 tension in legs diphenhydramine AdvReac Unknown urinary Verified 11/20/24 09:27 [From Benadryl] retention Assessment & Plan Assessment & Plan (1) Schizoaffective disorder, bipolar type: Status: Acute Code(s): F25.0 - Schizoaffective disorder, bipolar type (2) HOCM (hypertrophic obstructive cardiomyopathy): Status: Acute Code(s): I42.1 - Obstructive hypertrophic cardiomyopathy (3) Chronic HFrEF (heart failure with reduced ejection fraction): Status: Acute Code(s): I50.22 - Chronic systolic (congestive) heart failure (4) Coronary artery disease: Qualifiers: Coronary Disease-Associated Artery/Lesion type: [place] artery [place] vs. transplanted heart: [place] heart Associated angina: with stable angina Qualified Code(s): I25.118 - Atherosclerotic heart disease of [place] coronary artery with other forms of angina pectoris Status: Acute Code(s): I25.10 - Atherosclerotic heart disease of [place] coronary artery without angina pectoris (5) Type II diabetes with retirement use of insulin: Status: Acute Code(s): E11.9 - Type 2 diabetes mellitus without complications; Z79.4 - detention (current) use of insulin (6) Nocturnal hypoxemia: Status: Acute Code(s): G47.34 - Idiopathic sleep related nonobstructive alveolar hypoventilation Plan Patient is a 59-year-old male with history of schizoaffective disorder, bipolar type, DM, essential hypertension HOCM, HLD, COPD JUDY (on 2L O2 q.h.s.), constipation with history of small-bowel obstruction, with hx of severe and aggressive decompensation, typically on both Clozaril and Latuda and on a [facility], who is a transferred from medical floor following treatment for JUHI/hypokalemia, prolonged QT due to poor fluid intake in the face of depression/SI. Patient has been off his psychiatric medications and remains depressed though SI seems to be clearing. He says he was very unhappy at his detention, feeling stressed by several things including his roommate who has psychotic symptoms... He said that due to his depression, the detention staff had a put away the scissors and knife because he was feeling unsafe. Currently denies SI. Denies AVH. Wants to get back on his medications. Formulation/clinical reasoning: Schizoaffective disorder with manic episodes and history of severe and aggressive decompensation went off medications. Currently QTC is WNL. That said, patient relies on antipsychotics (specifically Clozaril) in order to remain stable and safe. Patient agrees to restarting clozapine and Latuda at this time. Will continue to check QTC Hospital course: 11/28 depressed, isolative, but willing to continue med titration; no SI; says AH is minimal eating/drinking; showered 11/29 pt says he's good and that his mood is getting better. He denies any SI. Regarding AH he makes appropriate joke saying he does hear voices, this writers. Otherwise no AH. Pt says he's eating better. Lying in bed but pt says he'll get up and walk around after lunch. Plan: CV Q 15 minute checks continue Clozaril 25mg daily continue Clozaril 75mg qhs (continue to titrate to 175mg total daily dose) Latuda 40mg daily; will titrate to 60mg daily -monitor ANC qweekly for now -monitor QTC Continue other home medications -flomax 0.4mg qhs Patient educated on: diagnosis and medication risk/benefits Informed Consent: understands Reason for continued inpatient stay Substantial Risk for: rapid decompensation and med/psych decompensation Time Spent With Patient Time: Total time managing care of this patient today ____ minutes.
[2024-11-29 17:00] LABS: Glucose, Whole Blood 117 mg/dL (60-115)
[2024-11-29] MEDS: Lurasidone HCl 40 MG TABLET PO (17:44)
[2024-11-29 19:47] VITALS: BP 188/93; PULSE 75; TEMP 36.4; O2SAT 95
[2024-11-29] MEDS: cloZAPine 25 MG TABLET 75 MG PO (21:20)
[2024-11-29] MEDS: Atorvastatin Calcium 20 MG TABLET PO (21:21)
[2024-11-29] MEDS: Tamsulosin HCL 0.4 MG CAPSULE PO (21:21)
[2024-11-29] MEDS: traZODone HCL 50 MG TABLET PO (21:21)
[2024-11-29] MEDS: Insulin Glargine,Hum.rec.anlog 100 UNIT/ML 10 ML VIAL 15 UNIT SUBCUT (21:21)
[2024-11-29 21:36] LABS: Glucose, Whole Blood 136 mg/dL (60-115)
[2024-11-30 07:59] LABS: Glucose, Whole Blood 142 mg/dL (60-115)
[2024-11-30 08:00] VITALS: BP 155/92; PULSE 68; TEMP 36.3; O2SAT 96
[2024-11-30 09:00] VITALS: BP 155/90
[2024-11-30] MEDS: Metoprolol Succinate ER 100 MG TAB.ER.24H PO (09:00)
[2024-11-30] MEDS: Cholecalciferol (Vitamin D3) 25 MCG TABLET PO (09:00)
[2024-11-30] MEDS: Omeprazole 40 MG CAPSULE.DR PO ×2 (09:00→17:38)
[2024-11-30] MEDS: Aspirin 81 MG TAB.CHEW PO (09:01)
[2024-11-30] MEDS: cloZAPine 25 MG TABLET PO (09:01)
[2024-11-30] MEDS: polyethylene glycoL 3350 17 GM POWD.PACK PO (09:01)
[2024-11-30] MEDS: Empagliflozin 10 MG TABLET PO (09:01)
--- NOTE | 2024-11-30 10:09 | HO.PSYCHPN ---
Subjective Subjective Date of Service: 11/30/24 Reason For Visit: Depression/decomp Interim History: Met with patient; discussed with team Patient says that he is ?okay ?. He denies any AH or SI. About his depression, he says I do not know regarding how to quantify it. He says I can not seem to get anywhere... Discussed further and patient understands it will likely take time as the medications are titrated Mental Status Exam Mental Status Exam Narrative: Pt is alert and oriented; behavior is quiet, isolative, cooperative, mostly lying in bed but willing to enage on approach; intermittently out about in the milieu; patient is not in distress; dressed in hospital attire with unkempt but adequate hygiene; mood is described as good and affect congruent, a little brighter; eye contact appropriate; Speech is quiet, slowed; not pressured; psychomotor retardation remains present; thought process is goal directed, more linear and less thought blocking; Thought content is vacuous; no delusional content expressed; currently no SI; no HI. Denies AH; Patients insight and judgment impaired but is improving Diagnostics Vital Signs (24Hr): Vital Signs - 24 hr 11/29/24 19:47 11/30/24 08:00 11/30/24 09:00 Temperature 97.6 F 97.3 F Pulse Rate 75 68 Blood Pressure 188/93 H 155/92 H 155/90 H Pulse Oximetry 95 96 Oxygen Delivery Method Room Air Room Air BMI result Body Mass Index 35.9 Labs Labs: Laboratory Results - last 48 hr 11/28/24 11/28/24 11/28/24 11:58 17:13 21:00 POC Glucose 136 H 149 H 144 H 11/29/24 11/29/24 11/29/24 08:39 12:13 16:55 POC Glucose 113 137 H 117 H 11/29/24 11/30/24 21:05 07:55 POC Glucose 136 H 142 H Medications Medications Current Medications Acetaminophen (Acetaminophen 325 Mg Tablet) 650 mg PO Q6H PRN PRN Reason: Headache/Pain, Scale 1-10 Al Hydroxide/Mg Hydroxide (Magnesium Hydrox/Alum Hydrox 30 Ml Oral.Susp) 30 ml PO Q6H PRN PRN Reason: Heartburn/Nausea Albuterol Sulfate (Albuterol Sulfate 90 Mcg 8 Gm Inhaler) 2 puff INHALE RQ6H PRN PRN Reason: sob Aspirin (Aspirin 81 Mg Tab.Chew) 81 mg PO DAILY [facility] Last Admin: 11/30/24 09:01 Dose: 81 mg Atorvastatin Calcium (Atorvastatin Calcium 20 Mg Tablet) 20 mg PO BEDTIME [facility] Last Admin: 11/29/24 21:21 Dose: 20 mg Clozapine (Clozapine 25 Mg Tablet) 25 mg PO DAILY [facility] Last Admin: 11/30/24 09:01 Dose: 25 mg Clozapine (Clozapine 25 Mg Tablet) 75 mg PO BEDTIME [facility] Last Admin: 11/29/24 21:20 Dose: 75 mg Dextrose (Dextrose 50 % 25 Gm/50 Ml Syringe) 25 gm IVPUSH Q15M PRN; Protocol PRN Reason: per Hypoglycemia Standing Ord. Empagliflozin (Empagliflozin 10 Mg Tablet) 10 mg PO DAILY [facility] Last Admin: 11/30/24 09:01 Dose: 10 mg Furosemide (Furosemide 40 Mg Tablet) 40 mg PO DAILY PRN; Protocol PRN Reason: edema Glucose (Glucose Gel 15 Gm Gel..Gram.) 15 gm PO Q15M PRN; Protocol PRN Reason: per Hypoglycemia Standing Ord. Insulin Glargine (Insulin Glargine,Hum.Rec.Anlog 100 Unit/Ml 10 Ml Vial) 15 unit SUBCUT BEDTIME [facility] Last Admin: 11/29/24 21:21 Dose: 15 unit Insulin Human Lispro (Insulin Lispro 100 Unit/Ml 3 Ml Vial) 0 unit SUBCUT QIDACHS [facility]; Protocol Last Admin: 11/30/24 08:04 Dose: Not Given Lurasidone HCl (Lurasidone Hcl 40 Mg Tablet) 40 mg PO DAILY@1800 [facility] Last Admin: 11/29/24 17:44 Dose: 40 mg Magnesium Hydroxide (Milk Of Magnesia 30 Ml Oral.Susp) 30 ml PO DAILY PRN PRN Reason: Constipation Metoprolol Succinate (Metoprolol Succinate Er 100 Mg Tab.Er.24h) 100 mg PO DAILY [facility]; Protocol Last Admin: 11/30/24 09:00 Dose: 100 mg Nicotine (Nicotine 21 Mg Patch.Td24) 21 mg TRANSDERMA DAILY PRN PRN Reason: smoking cessation Nicotine Polacrilex (Nicotine Polacrilex 2 Mg Gum) 4 mg BUCCAL Q2H PRN PRN Reason: Nicotine Cravings Nicotine Polacrilex (Nicotine Polacrilex 2 Mg Gum) 2 mg BUCCAL Q2H PRN PRN Reason: Nicotine Cravings Nitroglycerin (Nitroglycerin 0.4 Mg Tab.Subl) 0.4 mg SUBLINGUAL Q5MX3 PRN PRN Reason: Chest Pain Non-Formulary Medication (Linagliptin) 5 mg PO DAILY [facility] Omeprazole (Omeprazole 40 Mg Capsule.Dr) 40 mg PO BID@0630,1630 [facility] Last Admin: 11/30/24 09:00 Dose: 40 mg Polyethylene Glycol (Polyethylene Glycol 3350 17 Gm Powd.Pack) 17 gm PO DAILY [facility] Last Admin: 11/30/24 09:01 Dose: 17 gm Senna (Sennosides 8.6 Mg Tablet) 17.2 mg PO BEDTIME PRN PRN Reason: Constipation Tamsulosin HCl (Tamsulosin Hcl 0.4 Mg Capsule) 0.4 mg PO BEDTIME [facility] Last Admin: 11/29/24 21:21 Dose: 0.4 mg Trazodone HCl (Trazodone Hcl 50 Mg Tablet) 50 mg PO BEDTIME MRX1 PRN PRN Reason: Insomnia Last Admin: 11/29/24 21:21 Dose: 50 mg Vitamin D (Cholecalciferol (Vitamin D3) 25 Mcg Tablet) 25 mcg PO DAILY [facility] Last Admin: 11/30/24 09:00 Dose: 25 mcg Allergies Allergies Allergy/AdvReac Type Severity Reaction Status Date / Time lithium [[place]] Allergy Severe Toxicity Verified 11/20/24 09:27 thiothixene Allergy Severe Swelling Verified 11/20/24 09:27 amoxicillin Allergy Mild Nose Bleed Verified 11/20/24 09:27 benztropine Allergy Unknown benztropine Verified 11/20/24 09:27 mesylate- unknown gabapentin [From NEURONTIN] Allergy Unknown Unknown Verified 11/20/24 09:27 fluphenazine [From Prolixin] Allergy Unknown Verified 11/20/24 09:27 barium sulfate AdvReac Intermediate Nausea and Verified 11/20/24 09:27 [BARIUM SULFATE] Vomiting haloperidol AdvReac Intermediate Muscle Verified 11/20/24 09:27 tension in legs diphenhydramine AdvReac Unknown urinary Verified 11/20/24 09:27 [From Benadryl] retention Assessment & Plan Assessment & Plan (1) Schizoaffective disorder, bipolar type: Status: Acute Code(s): F25.0 - Schizoaffective disorder, bipolar type (2) HOCM (hypertrophic obstructive cardiomyopathy): Status: Acute Code(s): I42.1 - Obstructive hypertrophic cardiomyopathy (3) Chronic HFrEF (heart failure with reduced ejection fraction): Status: Acute Code(s): I50.22 - Chronic systolic (congestive) heart failure (4) Coronary artery disease: Qualifiers: Associated angina: with stable angina Coronary Disease-Associated Artery/Lesion type: [place] artery [place] vs. 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) use of insulin (6) Nocturnal hypoxemia: Status: Acute Code(s): G47.34 - Idiopathic sleep related nonobstructive alveolar hypoventilation Plan Patient is a 59-year-old male with history of schizoaffective disorder, bipolar type, DM, essential hypertension HOCM, HLD, COPD JUDY (on 2L O2 q.h.s.), constipation with history of small-bowel obstruction, with hx of severe and aggressive decompensation, typically on both Clozaril and Latuda and on a [facility], who is a transferred from medical floor following treatment for JUHI/hypokalemia, prolonged QT due to poor fluid intake in the face of depression/SI. Patient has been off his psychiatric medications and remains depressed though SI seems to be clearing. He says he was very unhappy at his detention, feeling stressed by several things including his roommate who has psychotic symptoms... He said that due to his depression, the detention staff had a put away the scissors and knife because he was feeling unsafe. Currently denies SI. Denies AVH. Wants to get back on his medications. Formulation/clinical reasoning: Schizoaffective disorder with manic episodes and history of severe and aggressive decompensation went off medications. Currently QTC is WNL. That said, patient relies on antipsychotics (specifically Clozaril) in order to remain stable and safe. Patient agrees to restarting clozapine and Latuda at this time. Will continue to check QTC Hospital course: 11/28 depressed, isolative, but willing to continue med titration; no SI; says AH is minimal eating/drinking; showered 11/29 pt says he's good and that his mood is getting better. He denies any SI. Regarding AH he makes appropriate joke saying he does hear voices, this writers. Otherwise no AH. Pt says he's eating better. Lying in bed but pt says he'll get up and walk around after lunch. Plan: CV Q 15 minute checks continue Clozaril 25mg daily continue Clozaril 75mg qhs (continue to titrate to 175mg total daily dose) increase to Latuda 60mg daily -monitor ANC qweekly for now -monitor QTC Continue other home medications -flomax 0.4mg qhs Patient educated on: diagnosis and medication risk/benefits Informed Consent: understands Reason for continued inpatient stay Substantial Risk for: inability to function Time Spent With Patient Time: Total time managing care of this patient today ____ minutes.
[2024-11-30 11:57] LABS: Glucose, Whole Blood 162 mg/dL (60-115)
[2024-11-30] MEDS: Insulin Lispro 100 UNIT/ML 3 ML VIAL SUBCUT ×2 (12:34→20:30)
[2024-11-30 17:21] LABS: Glucose, Whole Blood 113 mg/dL (60-115)
[2024-11-30] MEDS: Lurasidone HCl 20 MG TABLET 60 MG PO (17:38)
[2024-11-30 19:48] VITALS: RESP 15
[2024-11-30 20:15] LABS: Glucose, Whole Blood 183 mg/dL (60-115)
[2024-11-30] MEDS: traZODone HCL 50 MG TABLET PO (20:31)
[2024-11-30] MEDS: Insulin Glargine,Hum.rec.anlog 100 UNIT/ML 10 ML VIAL 15 UNIT SUBCUT (20:31)
[2024-11-30] MEDS: cloZAPine 25 MG TABLET 75 MG PO (20:32)
[2024-11-30] MEDS: Tamsulosin HCL 0.4 MG CAPSULE PO (20:32)
[2024-11-30] MEDS: Atorvastatin Calcium 20 MG TABLET PO (20:32)
[2024-12-01] MEDS: Omeprazole 40 MG CAPSULE.DR PO ×2 (07:03→17:40)
[2024-12-01 07:44] LABS: Glucose, Whole Blood 158 mg/dL (60-115)
[2024-12-01 08:00] VITALS: BP 158/76; PULSE 85; RESP 16; TEMP 36.4; O2SAT 95
[2024-12-01 08:58] VITALS: BP 158/76
[2024-12-01] MEDS: Metoprolol Succinate ER 100 MG TAB.ER.24H PO (08:58)
[2024-12-01] MEDS: Cholecalciferol (Vitamin D3) 25 MCG TABLET PO (08:58)
[2024-12-01] MEDS: Aspirin 81 MG TAB.CHEW PO (08:59)
[2024-12-01] MEDS: Empagliflozin 10 MG TABLET PO (08:59)
[2024-12-01] MEDS: cloZAPine 25 MG TABLET PO (08:59)
[2024-12-01] MEDS: Insulin Lispro 100 UNIT/ML 3 ML VIAL SUBCUT ×4 (09:02→22:06)
--- NOTE | 2024-12-01 09:47 | P.PNPSI_ITS ---
Subjective Subjective Date of Service: 12/01/24 Reason For Visit: Depression/decomp Interim History: Met with patient; discussed with team Patient quiet, lying in his bed, awake and alert. Polite on approach and says hello. He says he is okay but that he has a lot on his mind. Batch Room Technician and patient walked up and down the hallway talking a little. Patient reminisced about past times when he has been in the hospital. Batch Room Technician asked about his concerns regarding living situation he says that is not really something he is thinking about at the moment, which is improvement. Patient had a small smile peek through Mental Status Exam Mental Status Exam Narrative: Pt is alert and oriented; behavior is quiet, isolative, cooperative, mostly lying in bed but willing to enage on approach; intermittently out and about in the milieu; patient is not in distress; dressed in hospital attire with unkempt but adequate hygiene; mood is described as ok and affect congruent, kind of blunted but a little brighter, almost a small smile; eye contact appropriate; Speech is quiet, slowed; not pressured; psychomotor retardation remains present; thought process is goal directed, more linear and less thought blocking; Thought content is lots of stuff but no delusional content expressed; no SI; no HI. Denies AH; Patients insight and judgment impaired but is improving Diagnostics Vital Signs (24Hr): Vital Signs - 24 hr 11/30/24 19:48 12/01/24 08:58 Respiratory Rate 15 Blood Pressure 158/76 H BMI result Body Mass Index 35.9 Labs Labs: Laboratory Results - last 48 hr 11/29/24 11/29/24 11/29/24 12:13 16:55 21:05 POC Glucose 137 H 117 H 136 H 11/30/24 11/30/24 11/30/24 07:55 11:49 17:07 POC Glucose 142 H 162 H 113 11/30/24 12/01/24 20:06 07:36 POC Glucose 183 H 158 H Medications Medications Current Medications Acetaminophen (Acetaminophen 325 Mg Tablet) 650 mg PO Q6H PRN PRN Reason: Headache/Pain, Scale 1-10 Al Hydroxide/Mg Hydroxide (Magnesium Hydrox/Alum Hydrox 30 Ml Oral.Susp) 30 ml PO Q6H PRN PRN Reason: Heartburn/Nausea Albuterol Sulfate (Albuterol Sulfate 90 Mcg 8 Gm Inhaler) 2 puff INHALE RQ6H PRN PRN Reason: sob Aspirin (Aspirin 81 Mg Tab.Chew) 81 mg PO DAILY [facility] Last Admin: 12/01/24 08:59 Dose: 81 mg Atorvastatin Calcium (Atorvastatin Calcium 20 Mg Tablet) 20 mg PO BEDTIME [facility] Last Admin: 11/30/24 20:32 Dose: 20 mg Clozapine (Clozapine 25 Mg Tablet) 25 mg PO DAILY [facility] Last Admin: 12/01/24 08:59 Dose: 25 mg Clozapine (Clozapine 25 Mg Tablet) 75 mg PO BEDTIME [facility] Last Admin: 11/30/24 20:32 Dose: 75 mg Dextrose (Dextrose 50 % 25 Gm/50 Ml Syringe) 25 gm IVPUSH Q15M PRN; Protocol PRN Reason: per Hypoglycemia Standing Ord. Empagliflozin (Empagliflozin 10 Mg Tablet) 10 mg PO DAILY [facility] Last Admin: 12/01/24 08:59 Dose: 10 mg Furosemide (Furosemide 40 Mg Tablet) 40 mg PO DAILY PRN; Protocol PRN Reason: edema Glucose (Glucose Gel 15 Gm Gel..Gram.) 15 gm PO Q15M PRN; Protocol PRN Reason: per Hypoglycemia Standing Ord. Insulin Glargine (Insulin Glargine,Hum.Rec.Anlog 100 Unit/Ml 10 Ml Vial) 15 unit SUBCUT BEDTIME [facility] Last Admin: 11/30/24 20:31 Dose: 15 unit Insulin Human Lispro (Insulin Lispro 100 Unit/Ml 3 Ml Vial) 0 unit SUBCUT QIDACHS [facility]; Protocol Last Admin: 12/01/24 09:02 Dose: 2 unit Lurasidone HCl (Lurasidone Hcl 20 Mg Tablet) 60 mg PO DAILY@1800 [facility] Last Admin: 11/30/24 17:38 Dose: 60 mg Magnesium Hydroxide (Milk Of Magnesia 30 Ml Oral.Susp) 30 ml PO DAILY PRN PRN Reason: Constipation Metoprolol Succinate (Metoprolol Succinate Er 100 Mg Tab.Er.24h) 100 mg PO DAILY [facility]; Protocol Last Admin: 12/01/24 08:58 Dose: 100 mg Nicotine (Nicotine 21 Mg Patch.Td24) 21 mg TRANSDERMA DAILY PRN PRN Reason: smoking cessation Nicotine Polacrilex (Nicotine Polacrilex 2 Mg Gum) 4 mg BUCCAL Q2H PRN PRN Reason: Nicotine Cravings Nicotine Polacrilex (Nicotine Polacrilex 2 Mg Gum) 2 mg BUCCAL Q2H PRN PRN Reason: Nicotine Cravings Nitroglycerin (Nitroglycerin 0.4 Mg Tab.Subl) 0.4 mg SUBLINGUAL Q5MX3 PRN PRN Reason: Chest Pain Omeprazole (Omeprazole 40 Mg Capsule.Dr) 40 mg PO BID@0630,1630 [facility] Last Admin: 12/01/24 07:03 Dose: 40 mg Polyethylene Glycol (Polyethylene Glycol 3350 17 Gm Powd.Pack) 17 gm PO DAILY [facility] Last Admin: 12/01/24 09:02 Dose: Not Given Senna (Sennosides 8.6 Mg Tablet) 17.2 mg PO BEDTIME PRN PRN Reason: Constipation Tamsulosin HCl (Tamsulosin Hcl 0.4 Mg Capsule) 0.4 mg PO BEDTIME [facility] Last Admin: 11/30/24 20:32 Dose: 0.4 mg Trazodone HCl (Trazodone Hcl 50 Mg Tablet) 50 mg PO BEDTIME MRX1 PRN PRN Reason: Insomnia Last Admin: 11/30/24 20:31 Dose: 50 mg Vitamin D (Cholecalciferol (Vitamin D3) 25 Mcg Tablet) 25 mcg PO DAILY [facility] Last Admin: 12/01/24 08:58 Dose: 25 mcg Allergies Allergies Allergy/AdvReac Type Severity Reaction Status Date / Time lithium [[place]] Allergy Severe Toxicity Verified 11/20/24 09:27 thiothixene Allergy Severe Swelling Verified 11/20/24 09:27 amoxicillin Allergy Mild Nose Bleed Verified 11/20/24 09:27 benztropine Allergy Unknown benztropine Verified 11/20/24 09:27 mesylate- unknown gabapentin [From NEURONTIN] Allergy Unknown Unknown Verified 11/20/24 09:27 fluphenazine [From Prolixin] Allergy Unknown Verified 11/20/24 09:27 barium sulfate AdvReac Intermediate Nausea and Verified 11/20/24 09:27 [BARIUM SULFATE] Vomiting haloperidol AdvReac Intermediate Muscle Verified 11/20/24 09:27 tension in legs diphenhydramine AdvReac Unknown urinary Verified 11/20/24 09:27 [From Benadryl] retention Assessment & Plan Assessment & Plan (1) Schizoaffective disorder, bipolar type: Status: Acute Code(s): F25.0 - Schizoaffective disorder, bipolar type (2) HOCM (hypertrophic obstructive cardiomyopathy): Status: Acute Code(s): I42.1 - Obstructive hypertrophic cardiomyopathy (3) Chronic HFrEF (heart failure with reduced ejection fraction): Status: Acute Code(s): I50.22 - Chronic systolic (congestive) heart failure (4) Coronary artery disease: Qualifiers: Associated angina: with stable angina Coronary Disease-Associated Artery/Lesion type: [place] artery [place] vs. transplanted heart: [place] heart Qualified Code(s): I25.118 - Atherosclerotic heart disease of [place] coronary artery with other forms of angina pectoris Status: Acute Code(s): I25.10 - Atherosclerotic heart disease of [place] coronary artery without angina pectoris (5) Type II diabetes with care home use of insulin: Status: Acute Code(s): E11.9 - Type 2 diabetes mellitus without complications; Z79.4 - half-way (current) use of insulin (6) Nocturnal hypoxemia: Status: Acute Code(s): G47.34 - Idiopathic sleep related nonobstructive alveolar hypoventilation Plan Patient is a 59-year-old male with history of schizoaffective disorder, bipolar type, DM, essential hypertension HOCM, HLD, COPD JUDY (on 2L O2 q.h.s.), constipation with history of small-bowel obstruction, with hx of severe and aggressive decompensation, typically on both Clozaril and Latuda and on a [facility], who is a transferred from medical floor following treatment for JUHI/hypokalemia, prolonged QT due to poor fluid intake in the face of depression/SI. Patient has been off his psychiatric medications and remains depressed though SI seems to be clearing. He says he was very unhappy at his [facility], feeling stressed by several things including his roommate who has psychotic symptoms... He said that due to his depression, the [facility] staff had a put away the scissors and knife because he was feeling unsafe. Currently denies SI. Denies AVH. Wants to get back on his medications. Formulation/clinical reasoning: Schizoaffective disorder with manic episodes and history of severe and aggressive decompensation went off medications. Currently QTC is WNL. That said, patient relies on antipsychotics (specifically Clozaril) in order to remain stable and safe. Patient agrees to restarting clozapine and Latuda at this time. Will continue to check QTC Hospital course: 11/28 depressed, isolative, but willing to continue med titration; no SI; says AH is minimal eating/drinking; showered 11/29 pt says he's good and that his mood is getting better. He denies any SI. Regarding AH he makes appropriate joke saying he does hear voices, this writers. Otherwise no AH. Pt says he's eating better. Lying in bed but pt says he'll get up and walk around after lunch. 11/30 Patient quiet, lying in his bed, awake and alert. Polite on approach and says hello. He says he is okay but that he has a lot on his mind. Batch Room Technician and patient walked up and down the hallway talking a little. Patient reminisced about past times when he has been in the hospital. Batch Room Technician asked about his concerns regarding living situation he says that is not really something he is thinking about at the moment, which is improvement. Patient is eating and drinking. Patient smiled a bit -continue with clozapine titration Plan: CV Q 15 minute checks continue Clozaril 25mg daily continue Clozaril 100mg qhs (continue to titrate to 175mg total daily dose) Continue Latuda 60mg daily -monitor ANC qweekly for now -monitor QTC: on 11/29 QTcB Int : 471 ms Continue other home medications -flomax 0.4mg qhs Patient educated on: diagnosis, medication risk/benefits and therapeutic strategies Informed Consent: understands Reason for continued inpatient stay Substantial Risk for: inability to function Time Spent With Patient Time: Total time managing care of this patient today ____ minutes.
[2024-12-01 11:51] LABS: Glucose, Whole Blood 192 mg/dL (60-115)
[2024-12-01 17:23] LABS: Glucose, Whole Blood 151 mg/dL (60-115)
[2024-12-01] MEDS: Lurasidone HCl 20 MG TABLET 60 MG PO (17:40)
[2024-12-01 20:00] VITALS: BP 119/69; PULSE 80; RESP 18; TEMP 36.4; O2SAT 96
[2024-12-01 20:54] LABS: Glucose, Whole Blood 220 mg/dL (60-115)
[2024-12-01] MEDS: Tamsulosin HCL 0.4 MG CAPSULE PO (22:05)
[2024-12-01] MEDS: Atorvastatin Calcium 20 MG TABLET PO (22:05)
[2024-12-01] MEDS: cloZAPine 100 MG TABLET PO (22:05)
[2024-12-01] MEDS: Insulin Glargine,Hum.rec.anlog 100 UNIT/ML 10 ML VIAL 15 UNIT SUBCUT (22:08)
[2024-12-02 08:16] LABS: Glucose, Whole Blood 171 mg/dL (60-115)
[2024-12-02 09:31] VITALS: BP 155/79; PULSE 76; RESP 16; TEMP 36.4; O2SAT 95
[2024-12-02] MEDS: Aspirin 81 MG TAB.CHEW PO (09:35)
[2024-12-02] MEDS: Empagliflozin 10 MG TABLET PO (09:36)
[2024-12-02] MEDS: Omeprazole 40 MG CAPSULE.DR PO ×2 (09:36→17:18)
[2024-12-02] MEDS: cloZAPine 25 MG TABLET PO (09:36)
[2024-12-02] MEDS: Cholecalciferol (Vitamin D3) 25 MCG TABLET PO (09:36)
[2024-12-02] MEDS: Insulin Lispro 100 UNIT/ML 3 ML VIAL SUBCUT ×3 (09:36→21:53)
[2024-12-02 09:39] VITALS: BP 155/79; PULSE 76
[2024-12-02] MEDS: Metoprolol Succinate ER 100 MG TAB.ER.24H PO (09:39)
--- NOTE | 2024-12-02 10:02 | P.PNPSI_ITS ---
Subjective Subjective Date of Service: 12/02/24 Reason For Visit: Depression/decomp Interim History: met with pt; discussed with team pt more difficult with which to engage; willing to walk with science writer down [place], but does not want to talk much...says he's alright and denies SI/AVH...agrees to continue med tritration Mental Status Exam Mental Status Exam Narrative: Pt is alert and oriented; behavior is quiet, isolative, cooperative, mostly lying in bed but willing to enage on approach; intermittently out and about in the milieu; patient is not in distress; dressed in hospital attire with unkempt but adequate hygiene; mood is described as alright and affect congruent, kind of blunted; eye contact appropriate; Speech is quiet, slowed; not pressured; psychomotor retardation remains present; thought process is goal directed, more linear and less thought blocking; Thought content is lots of stuff but no delusional content expressed; no SI; no HI. Denies AH; Patients insight and judgment impaired but is improving Diagnostics Vital Signs (24Hr): Vital Signs - 24 hr 12/01/24 20:00 12/02/24 09:39 Temperature 97.6 F Pulse Rate 80 76 Respiratory Rate 18 Blood Pressure 119/69 155/79 H Pulse Oximetry 96 Oxygen Delivery Method Room Air BMI result Body Mass Index 35.9 Labs Labs: Laboratory Results - last 48 hr 11/30/24 11/30/24 11/30/24 11:49 17:07 20:06 POC Glucose 162 H 113 183 H 12/01/24 12/01/24 12/01/24 07:36 11:47 17:16 POC Glucose 158 H 192 H 151 H 12/01/24 12/02/24 20:50 08:12 POC Glucose 220 H 171 H Medications Medications Current Medications Acetaminophen (Acetaminophen 325 Mg Tablet) 650 mg PO Q6H PRN PRN Reason: Headache/Pain, Scale 1-10 Al Hydroxide/Mg Hydroxide (Magnesium Hydrox/Alum Hydrox 30 Ml Oral.Susp) 30 ml PO Q6H PRN PRN Reason: Heartburn/Nausea Albuterol Sulfate (Albuterol Sulfate 90 Mcg 8 Gm Inhaler) 2 puff INHALE RQ6H PRN PRN Reason: sob Aspirin (Aspirin 81 Mg Tab.Chew) 81 mg PO DAILY [facility] Last Admin: 12/02/24 09:35 Dose: 81 mg Atorvastatin Calcium (Atorvastatin Calcium 20 Mg Tablet) 20 mg PO BEDTIME [facility] Last Admin: 12/01/24 22:05 Dose: 20 mg Clozapine (Clozapine 25 Mg Tablet) 25 mg PO DAILY [facility] Last Admin: 12/02/24 09:36 Dose: 25 mg Clozapine (Clozapine 100 Mg Tablet) 100 mg PO BEDTIME [facility] Last Admin: 12/01/24 22:05 Dose: 100 mg Dextrose (Dextrose 50 % 25 Gm/50 Ml Syringe) 25 gm IVPUSH Q15M PRN; Protocol PRN Reason: per Hypoglycemia Standing Ord. Empagliflozin (Empagliflozin 10 Mg Tablet) 10 mg PO DAILY [facility] Last Admin: 12/02/24 09:36 Dose: 10 mg Furosemide (Furosemide 40 Mg Tablet) 40 mg PO DAILY PRN; Protocol PRN Reason: edema Glucose (Glucose Gel 15 Gm Gel..Gram.) 15 gm PO Q15M PRN; Protocol PRN Reason: per Hypoglycemia Standing Ord. Insulin Glargine (Insulin Glargine,Hum.Rec.Anlog 100 Unit/Ml 10 Ml Vial) 15 unit SUBCUT BEDTIME [facility] Last Admin: 12/01/24 22:08 Dose: 15 unit Insulin Human Lispro (Insulin Lispro 100 Unit/Ml 3 Ml Vial) 0 unit SUBCUT QIDACHS [facility]; Protocol Last Admin: 12/02/24 09:36 Dose: 2 unit Lurasidone HCl (Lurasidone Hcl 20 Mg Tablet) 60 mg PO DAILY@1800 [facility] Last Admin: 12/01/24 17:40 Dose: 60 mg Magnesium Hydroxide (Milk Of Magnesia 30 Ml Oral.Susp) 30 ml PO DAILY PRN PRN Reason: Constipation Metoprolol Succinate (Metoprolol Succinate Er 100 Mg Tab.Er.24h) 100 mg PO DAILY [facility]; Protocol Last Admin: 12/02/24 09:39 Dose: 100 mg Nicotine (Nicotine 21 Mg Patch.Td24) 21 mg TRANSDERMA DAILY PRN PRN Reason: smoking cessation Nicotine Polacrilex (Nicotine Polacrilex 2 Mg Gum) 4 mg BUCCAL Q2H PRN PRN Reason: Nicotine Cravings Nicotine Polacrilex (Nicotine Polacrilex 2 Mg Gum) 2 mg BUCCAL Q2H PRN PRN Reason: Nicotine Cravings Nitroglycerin (Nitroglycerin 0.4 Mg Tab.Subl) 0.4 mg SUBLINGUAL Q5MX3 PRN PRN Reason: Chest Pain Omeprazole (Omeprazole 40 Mg Capsule.Dr) 40 mg PO BID@0630,1630 [facility] Last Admin: 12/02/24 09:36 Dose: 40 mg Polyethylene Glycol (Polyethylene Glycol 3350 17 Gm Powd.Pack) 17 gm PO DAILY [facility] Last Admin: 12/01/24 09:02 Dose: Not Given Senna (Sennosides 8.6 Mg Tablet) 17.2 mg PO BEDTIME PRN PRN Reason: Constipation Tamsulosin HCl (Tamsulosin Hcl 0.4 Mg Capsule) 0.4 mg PO BEDTIME [facility] Last Admin: 12/01/24 22:05 Dose: 0.4 mg Trazodone HCl (Trazodone Hcl 50 Mg Tablet) 50 mg PO BEDTIME MRX1 PRN PRN Reason: Insomnia Last Admin: 11/30/24 20:31 Dose: 50 mg Vitamin D (Cholecalciferol (Vitamin D3) 25 Mcg Tablet) 25 mcg PO DAILY [facility] Last Admin: 12/02/24 09:36 Dose: 25 mcg Allergies Allergies Allergy/AdvReac Type Severity Reaction Status Date / Time lithium [[place]] Allergy Severe Toxicity Verified 11/20/24 09:27 thiothixene Allergy Severe Swelling Verified 11/20/24 09:27 amoxicillin Allergy Mild Nose Bleed Verified 11/20/24 09:27 benztropine Allergy Unknown benztropine Verified 11/20/24 09:27 mesylate- unknown gabapentin [From NEURONTIN] Allergy Unknown Unknown Verified 11/20/24 09:27 fluphenazine [From Prolixin] Allergy Unknown Verified 11/20/24 09:27 barium sulfate AdvReac Intermediate Nausea and Verified 11/20/24 09:27 [BARIUM SULFATE] Vomiting haloperidol AdvReac Intermediate Muscle Verified 11/20/24 09:27 tension in legs diphenhydramine AdvReac Unknown urinary Verified 11/20/24 09:27 [From Benadryl] retention Assessment & Plan Assessment & Plan (1) Schizoaffective disorder, bipolar type: Status: Acute Code(s): F25.0 - Schizoaffective disorder, bipolar type (2) HOCM (hypertrophic obstructive cardiomyopathy): Status: Acute Code(s): I42.1 - Obstructive hypertrophic cardiomyopathy (3) Chronic HFrEF (heart failure with reduced ejection fraction): Status: Acute Code(s): I50.22 - Chronic systolic (congestive) heart failure (4) Coronary artery disease: Qualifiers: Associated angina: with stable angina Coronary Disease-Associated Artery/Lesion type: [place] artery [place] vs. transplanted heart: [place] heart Qualified Code(s): I25.118 - Atherosclerotic heart disease of [place] coronary artery with other forms of angina pectoris Status: Acute Code(s): I25.10 - Atherosclerotic heart disease of [place] coronary artery without angina pectoris (5) Type II diabetes with [facility] use of insulin: Status: Acute Code(s): E11.9 - Type 2 diabetes mellitus without complications; Z79.4 - exterminator helper (current) use of insulin (6) Nocturnal hypoxemia: Status: Acute Code(s): G47.34 - Idiopathic sleep related nonobstructive alveolar hypoventilation Plan Patient is a 59-year-old male with history of schizoaffective disorder, bipolar type, DM, essential hypertension HOCM, HLD, COPD JUDY (on 2L O2 q.h.s.), constipation with history of small-bowel obstruction, with hx of severe and aggressive decompensation, typically on both Clozaril and Latuda and on a [employer] [facility] Haines, who is a transferred from medical floor following treatment for JUHI/hypokalemia, prolonged QT due to poor fluid intake in the face of depression/SI. Patient has been off his psychiatric medications and remains depressed though SI seems to be clearing. He says he was very unhappy at his long term, feeling stressed by several things including his roommate who has psychotic symptoms... He said that due to his depression, the long term staff had a put away the scissors and knife because he was feeling unsafe. Currently denies SI. Denies AVH. Wants to get back on his medications. Formulation/clinical reasoning: Schizoaffective disorder with manic episodes and history of severe and aggressive decompensation went off medications. Currently QTC is WNL. That said, patient relies on antipsychotics (specifically Clozaril) in order to remain stable and safe. Patient agrees to restarting clozapine and Latuda at this time. Will continue to check QTC Hospital course: 11/28 depressed, isolative, but willing to continue med titration; no SI; says AH is minimal eating/drinking; showered 11/29 pt says he's good and that his mood is getting better. He denies any SI. Regarding AH he makes appropriate joke saying he does hear voices, this writers. Otherwise no AH. Pt says he's eating better. Lying in bed but pt says he'll get up and walk around after lunch. 11/30 Patient quiet, lying in his bed, awake and alert. Polite on approach and says hello. He says he is okay but that he has a lot on his mind. Picker And Sorter Load And Unload and patient walked up and down the hallway talking a little. Patient reminisced about past times when he has been in the hospital. Picker And Sorter Load And Unload asked about his concerns regarding living situation he says that is not really something he is thinking about at the moment, which is improvement. Patient is eating and drinking. Patient smiled a bit 12/01 -continue with clozapine titration Plan: CV Q 15 minute checks continue Clozaril 25mg daily continue Clozaril 100mg qhs (continue to titrate to 175mg total daily dose) Continue Latuda 60mg daily -monitor ANC qweekly for now -monitor QTC: on 11/29 QTcB Int : 471 ms Continue other home medications -flomax 0.4mg qhs Patient educated on: diagnosis, medication risk/benefits and therapeutic strategies Informed Consent: understands and further education needed Reason for continued inpatient stay Substantial Risk for: inability to function, rapid decompensation and med/psych decompensation Time Spent With Patient Time: Total time managing care of this patient today ____ minutes.
[2024-12-02 12:00] LABS: Glucose, Whole Blood 125 mg/dL (60-115)
[2024-12-02] MEDS: Lurasidone HCl 20 MG TABLET 60 MG PO (17:18)
[2024-12-02 17:22] LABS: Glucose, Whole Blood 196 mg/dL (60-115)
[2024-12-02 19:51] VITALS: BP 128/77; PULSE 75; TEMP 36.4; O2SAT 97
[2024-12-02 20:43] LABS: Glucose, Whole Blood 200 mg/dL (60-115)
[2024-12-02] MEDS: Tamsulosin HCL 0.4 MG CAPSULE PO (21:52)
[2024-12-02] MEDS: Atorvastatin Calcium 20 MG TABLET PO (21:52)
[2024-12-02] MEDS: cloZAPine 100 MG TABLET PO (21:52)
[2024-12-02] MEDS: Insulin Glargine,Hum.rec.anlog 100 UNIT/ML 10 ML VIAL 15 UNIT SUBCUT (21:55)
[2024-12-03 07:56] LABS: Glucose, Whole Blood 145 mg/dL (60-115)
[2024-12-03 08:00] VITALS: BP 130/83; PULSE 78; RESP 18; TEMP 36.4; O2SAT 95
[2024-12-03 08:26] LABS: Glucose, Whole Blood 152 mg/dL (60-115)
[2024-12-03] MEDS: cloZAPine 25 MG TABLET PO (08:35)
[2024-12-03] MEDS: Cholecalciferol (Vitamin D3) 25 MCG TABLET PO (08:35)
[2024-12-03] MEDS: Omeprazole 40 MG CAPSULE.DR PO ×2 (08:35→17:24)
[2024-12-03] MEDS: Metoprolol Succinate ER 100 MG TAB.ER.24H PO (08:35)
[2024-12-03] MEDS: Aspirin 81 MG TAB.CHEW PO (08:35)
[2024-12-03] MEDS: Empagliflozin 10 MG TABLET PO (08:35)
--- NOTE | 2024-12-03 09:45 | P.PNPSI_ITS ---
Subjective Subjective Date of Service: 12/03/24 Reason For Visit: Depression/decomp Interim History: met with pt; discussed with team pt sitting in day room; says he's ok and that he's out there to watch the Tv program. Hard to engage further, but encouraging out of his room w/out prompting Mental Status Exam Mental Status Exam Narrative: Pt is alert and oriented; behavior is quiet, isolative, cooperative, mostly lying in bed but willing to enage on approach, in milue a little more; intermittently out and about in the milieu; patient is not in distress; dressed in hospital attire with unkempt but adequate hygiene; mood is described as okt and affect congruent, kind of blunted; eye contact appropriate; Speech is quiet, slowed; not pressured; psychomotor retardation remains present; thought process is goal directed, more linear and less thought blocking; Thought content is lots of stuff but no delusional content expressed; no SI; no HI. Denies AH; Patients insight and judgment impaired but is slowly improving Diagnostics Vital Signs (24Hr): Vital Signs - 24 hr 12/02/24 19:51 12/03/24 08:00 Temperature 97.6 F 97.6 F Pulse Rate 75 78 Respiratory Rate 18 Blood Pressure 128/77 130/83 Pulse Oximetry 97 95 Oxygen Delivery Method Room Air Room Air BMI result Body Mass Index 35.9 Labs Labs: Laboratory Results - last 48 hr 12/01/24 12/01/24 12/01/24 11:47 17:16 20:50 POC Glucose 192 H 151 H 220 H 12/02/24 12/02/24 12/02/24 08:12 11:57 17:14 POC Glucose 171 H 125 H 196 H 12/02/24 12/03/24 12/03/24 20:34 07:53 08:20 POC Glucose 200 H 145 H 152 H Medications Medications Current Medications Acetaminophen (Acetaminophen 325 Mg Tablet) 650 mg PO Q6H PRN PRN Reason: Headache/Pain, Scale 1-10 Al Hydroxide/Mg Hydroxide (Magnesium Hydrox/Alum Hydrox 30 Ml Oral.Susp) 30 ml PO Q6H PRN PRN Reason: Heartburn/Nausea Albuterol Sulfate (Albuterol Sulfate 90 Mcg 8 Gm Inhaler) 2 puff INHALE RQ6H PRN PRN Reason: sob Aspirin (Aspirin 81 Mg Tab.Chew) 81 mg PO DAILY [facility] Last Admin: 12/03/24 08:35 Dose: 81 mg Atorvastatin Calcium (Atorvastatin Calcium 20 Mg Tablet) 20 mg PO BEDTIME [facility] Last Admin: 12/02/24 21:52 Dose: 20 mg Clozapine (Clozapine 25 Mg Tablet) 25 mg PO DAILY [facility] Last Admin: 12/03/24 08:35 Dose: 25 mg Clozapine (Clozapine 100 Mg Tablet) 100 mg PO BEDTIME [facility] Stop: 12/03/24 21:00 Last Admin: 12/02/24 21:52 Dose: 100 mg Clozapine (Clozapine 25 Mg Tablet) 125 mg PO BEDTIME [facility] Dextrose (Dextrose 50 % 25 Gm/50 Ml Syringe) 25 gm IVPUSH Q15M PRN; Protocol PRN Reason: per Hypoglycemia Standing Ord. Empagliflozin (Empagliflozin 10 Mg Tablet) 10 mg PO DAILY [facility] Last Admin: 12/03/24 08:35 Dose: 10 mg Furosemide (Furosemide 40 Mg Tablet) 40 mg PO DAILY PRN; Protocol PRN Reason: edema Glucose (Glucose Gel 15 Gm Gel..Gram.) 15 gm PO Q15M PRN; Protocol PRN Reason: per Hypoglycemia Standing Ord. Insulin Glargine (Insulin Glargine,Hum.Rec.Anlog 100 Unit/Ml 10 Ml Vial) 15 unit SUBCUT BEDTIME [facility] Last Admin: 12/02/24 21:55 Dose: 15 unit Insulin Human Lispro (Insulin Lispro 100 Unit/Ml 3 Ml Vial) 0 unit SUBCUT QIDACHS [facility]; Protocol Last Admin: 12/03/24 08:03 Dose: Not Given Lurasidone HCl (Lurasidone Hcl 20 Mg Tablet) 60 mg PO DAILY@1800 [facility] Last Admin: 12/02/24 17:18 Dose: 60 mg Magnesium Hydroxide (Milk Of Magnesia 30 Ml Oral.Susp) 30 ml PO DAILY PRN PRN Reason: Constipation Metoprolol Succinate (Metoprolol Succinate Er 100 Mg Tab.Er.24h) 100 mg PO DAILY [facility]; Protocol Last Admin: 12/03/24 08:35 Dose: 100 mg Nicotine (Nicotine 21 Mg Patch.Td24) 21 mg TRANSDERMA DAILY PRN PRN Reason: smoking cessation Nicotine Polacrilex (Nicotine Polacrilex 2 Mg Gum) 4 mg BUCCAL Q2H PRN PRN Reason: Nicotine Cravings Nicotine Polacrilex (Nicotine Polacrilex 2 Mg Gum) 2 mg BUCCAL Q2H PRN PRN Reason: Nicotine Cravings Nitroglycerin (Nitroglycerin 0.4 Mg Tab.Subl) 0.4 mg SUBLINGUAL Q5MX3 PRN PRN Reason: Chest Pain Omeprazole (Omeprazole 40 Mg Capsule.Dr) 40 mg PO BID@0630,1630 [facility] Last Admin: 12/03/24 08:35 Dose: 40 mg Polyethylene Glycol (Polyethylene Glycol 3350 17 Gm Powd.Pack) 17 gm PO DAILY [facility] Last Admin: 12/03/24 08:37 Dose: Not Given Senna (Sennosides 8.6 Mg Tablet) 17.2 mg PO BEDTIME PRN PRN Reason: Constipation Tamsulosin HCl (Tamsulosin Hcl 0.4 Mg Capsule) 0.4 mg PO BEDTIME [facility] Last Admin: 12/02/24 21:52 Dose: 0.4 mg Trazodone HCl (Trazodone Hcl 50 Mg Tablet) 50 mg PO BEDTIME MRX1 PRN PRN Reason: Insomnia Last Admin: 11/30/24 20:31 Dose: 50 mg Vitamin D (Cholecalciferol (Vitamin D3) 25 Mcg Tablet) 25 mcg PO DAILY [facility] Last Admin: 12/03/24 08:35 Dose: 25 mcg Allergies Allergies Allergy/AdvReac Type Severity Reaction Status Date / Time lithium [[place]] Allergy Severe Toxicity Verified 11/20/24 09:27 thiothixene Allergy Severe Swelling Verified 11/20/24 09:27 amoxicillin Allergy Mild Nose Bleed Verified 11/20/24 09:27 benztropine Allergy Unknown benztropine Verified 11/20/24 09:27 mesylate- unknown gabapentin [From NEURONTIN] Allergy Unknown Unknown Verified 11/20/24 09:27 fluphenazine [From Prolixin] Allergy Unknown Verified 11/20/24 09:27 barium sulfate AdvReac Intermediate Nausea and Verified 11/20/24 09:27 [BARIUM SULFATE] Vomiting haloperidol AdvReac Intermediate Muscle Verified 11/20/24 09:27 tension in legs diphenhydramine AdvReac Unknown urinary Verified 11/20/24 09:27 [From Benadryl] retention Assessment & Plan Assessment & Plan (1) Schizoaffective disorder, bipolar type: Status: Acute Code(s): F25.0 - Schizoaffective disorder, bipolar type (2) HOCM (hypertrophic obstructive cardiomyopathy): Status: Acute Code(s): I42.1 - Obstructive hypertrophic cardiomyopathy (3) Chronic HFrEF (heart failure with reduced ejection fraction): Status: Acute Code(s): I50.22 - Chronic systolic (congestive) heart failure (4) Coronary artery disease: Qualifiers: Associated angina: with stable angina Coronary Disease-Associated Artery/Lesion type: [place] artery [place] vs. 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: Status: Acute Code(s): E11.9 - Type 2 diabetes mellitus without complications; Z79.4 - continuous churn buttermaker (current) use of insulin (6) Nocturnal hypoxemia: Status: Acute Code(s): G47.34 - Idiopathic sleep related nonobstructive alveolar hypoventilation Plan Patient is a 59-year-old male with history of schizoaffective disorder, bipolar type, DM, essential hypertension HOCM, HLD, COPD JUDY (on 2L O2 q.h.s.), constipation with history of small-bowel obstruction, with hx of severe and aggressive decompensation, typically on both Clozaril and Latuda and on a [facility], who is a transferred from medical floor following treatment for JUHI/hypokalemia, prolonged QT due to poor fluid intake in the face of depression/SI. Patient has been off his psychiatric medications and remains depressed though SI seems to be clearing. He says he was very unhappy at his residential, feeling stressed by several things including his roommate who has psychotic symptoms... He said that due to his depression, the residential staff had a put away the scissors and knife because he was feeling unsafe. Currently denies SI. Denies AVH. Wants to get back on his medications. Formulation/clinical reasoning: Schizoaffective disorder with manic episodes and history of severe and aggressive decompensation went off medications. Currently QTC is WNL. That said, patient relies on antipsychotics (specifically Clozaril) in order to remain stable and safe. Patient agrees to restarting clozapine and Latuda at this time. Will continue to check QTC Hospital course: 11/28 depressed, isolative, but willing to continue med titration; no SI; says AH is minimal eating/drinking; showered 11/29 pt says he's good and that his mood is getting better. He denies any SI. Regarding AH he makes appropriate joke saying he does hear voices, this writers. Otherwise no AH. Pt says he's eating better. Lying in bed but pt says he'll get up and walk around after lunch. 11/30 Patient quiet, lying in his bed, awake and alert. Polite on approach and says aicha. He says he is okay but that he has a lot on his mind. Manual Lathe Machinist and patient walked up and down the hallway talking a little. Patient reminisced about past times when he has been in the hospital. Manual Lathe Machinist asked about his concerns regarding living situation he says that is not really something he is thinking about at the moment, which is improvement. Patient is eating and drinking. Patient smiled a bit 12/01 -continue with clozapine titration 12/02 continue tx plan Plan: CV Q 15 minute checks continue Clozaril 25mg daily increased to Clozaril 125mg qhs (continue to titrate to 175mg total daily dose) Continue Latuda 60mg daily -monitor ANC qweekly for now -monitor QTC: on 11/29 QTcB Int : 471 ms Continue other home medications -flomax 0.4mg qhs Patient educated on: diagnosis Informed Consent: understands and further education needed Reason for continued inpatient stay Substantial Risk for: inability to function and rapid decompensation Time Spent With Patient Time: Total time managing care of this patient today ____ minutes.
[2024-12-03 12:05] LABS: Glucose, Whole Blood 157 mg/dL (60-115)
[2024-12-03] MEDS: Insulin Lispro 100 UNIT/ML 3 ML VIAL SUBCUT ×2 (12:27→17:24)
[2024-12-03 17:20] LABS: Glucose, Whole Blood 184 mg/dL (60-115)
[2024-12-03] MEDS: Lurasidone HCl 20 MG TABLET 60 MG PO (17:24)
[2024-12-03 20:00] VITALS: BP 153/75; PULSE 87; TEMP 36.6; O2SAT 94
[2024-12-03 20:55] LABS: Glucose, Whole Blood 143 mg/dL (60-115)
[2024-12-03] MEDS: Atorvastatin Calcium 20 MG TABLET PO (21:29)
[2024-12-03] MEDS: traZODone HCL 50 MG TABLET PO (21:29)
[2024-12-03] MEDS: Insulin Glargine,Hum.rec.anlog 100 UNIT/ML 10 ML VIAL 15 UNIT SUBCUT (21:29)
[2024-12-03] MEDS: cloZAPine 100 MG TABLET PO (21:29)
[2024-12-03] MEDS: Tamsulosin HCL 0.4 MG CAPSULE PO (21:30)
[2024-12-04 07:00] VITALS: BMI 34.7
[2024-12-04 07:58] LABS: Glucose, Whole Blood 158 mg/dL (60-115)
[2024-12-04 08:00] VITALS: BP 115/71; PULSE 78; TEMP 36.4
[2024-12-04 08:20] LABS: Neutrophils Absolute Auto 4.8 x10*3/uL (2.0-8.3); WBCANC 6.8 X10*3/uL
[2024-12-04] MEDS: Insulin Lispro 100 UNIT/ML 3 ML VIAL SUBCUT ×3 (08:33→21:18)
[2024-12-04] MEDS: Empagliflozin 10 MG TABLET PO (08:34)
[2024-12-04] MEDS: Omeprazole 40 MG CAPSULE.DR PO ×2 (08:34→17:35)
[2024-12-04] MEDS: cloZAPine 25 MG TABLET PO (08:34)
[2024-12-04] MEDS: Metoprolol Succinate ER 100 MG TAB.ER.24H PO (08:34)
[2024-12-04] MEDS: Cholecalciferol (Vitamin D3) 25 MCG TABLET PO (08:34)
[2024-12-04] MEDS: Aspirin 81 MG TAB.CHEW PO (08:34)
[2024-12-04 08:38] VITALS: O2SAT 95
--- NOTE | 2024-12-04 09:00 | ECG_ITS ---
Test Reason : check qtc Blood Pressure : */* mmHG Vent. Rate : 77 BPM Atrial Rate : 77 BPM P-R Int : 174 ms QRS Dur : 110 ms QT Int : 408 ms P-R-T Axes : 66 33 201 degrees QTcB Int : 461 ms Normal sinus rhythm Minimal voltage criteria for LVH, may be normal variant ( Sokolow-Vences ) ST & Marked T wave abnormality, consider anterolateral ischemia Prolonged QT Abnormal ECG When compared with ECG of 29-Nov-2024 13:59, T wave inversion more evident in Inferior leads Referred By: Geraldo Garcia Electronically Signed By: Javier Bah
[2024-12-04 12:22] LABS: Glucose, Whole Blood 144 mg/dL (60-115)
[2024-12-04 16:58] LABS: Glucose, Whole Blood 154 mg/dL (60-115)
[2024-12-04] MEDS: Lurasidone HCl 20 MG TABLET 60 MG PO (17:35)
--- NOTE | 2024-12-04 18:19 | HO.PSYCHPN ---
Subjective Subjective Date of Service: 12/04/24 Reason For Visit: Depression/decomp Interim History: Met with patient; discussed with team Patient says he is okay but does not want to talk much. Goes out in the milieu on his own, sits by himself. Remains eating and drinking well. Tolerating medications and agrees to continue med management Mental Status Exam Mental Status Exam Narrative: Pt is alert and oriented; behavior is quiet, isolative, cooperative, mostly lying in bed but willing to enage on approach, in milue a little more; intermittently out and about in the milieu; patient is not in distress; dressed in hospital attire with unkempt but adequate hygiene; mood is described as okt and affect congruent, kind of blunted; eye contact appropriate; Speech is quiet, slowed; not pressured; psychomotor retardation remains present; thought process is goal directed, more linear and less thought blocking; Thought content is lots of stuff but no delusional content expressed; no SI; no HI. Denies AH; Patients insight and judgment impaired but is slowly improving Diagnostics Vital Signs (24Hr): Vital Signs - 24 hr 12/03/24 20:00 12/04/24 08:00 12/04/24 08:38 Temperature 97.9 F 97.5 F Pulse Rate 87 78 Blood Pressure 153/75 H 115/71 Pulse Oximetry 94 95 Oxygen Delivery Method Room Air Room Air BMI result Body Mass Index 34.7 Labs Labs: Laboratory Results - last 48 hr 12/02/24 12/03/24 12/03/24 20:34 07:53 08:20 Absolute Neuts (auto) POC Glucose 200 H 145 H 152 H 12/03/24 12/03/24 12/03/24 11:56 17:14 20:50 Absolute Neuts (auto) POC Glucose 157 H 184 H 143 H 12/04/24 12/04/24 12/04/24 07:55 08:05 12:13 Absolute Neuts (auto) 4.8 POC Glucose 158 H 144 H 12/04/24 16:54 Absolute Neuts (auto) POC Glucose 154 H Medications Medications Current Medications Acetaminophen (Acetaminophen 325 Mg Tablet) 650 mg PO Q6H PRN PRN Reason: Headache/Pain, Scale 1-10 Al Hydroxide/Mg Hydroxide (Magnesium Hydrox/Alum Hydrox 30 Ml Oral.Susp) 30 ml PO Q6H PRN PRN Reason: Heartburn/Nausea Albuterol Sulfate (Albuterol Sulfate 90 Mcg 8 Gm Inhaler) 2 puff INHALE RQ6H PRN PRN Reason: sob Aspirin (Aspirin 81 Mg Tab.Chew) 81 mg PO DAILY [facility] Last Admin: 12/04/24 08:34 Dose: 81 mg Atorvastatin Calcium (Atorvastatin Calcium 20 Mg Tablet) 20 mg PO BEDTIME [facility] Last Admin: 12/03/24 21:29 Dose: 20 mg Clozapine (Clozapine 25 Mg Tablet) 25 mg PO DAILY [facility] Last Admin: 12/04/24 08:34 Dose: 25 mg Clozapine (Clozapine 25 Mg Tablet) 150 mg PO BEDTIME [facility] Dextrose (Dextrose 50 % 25 Gm/50 Ml Syringe) 25 gm IVPUSH Q15M PRN; Protocol PRN Reason: per Hypoglycemia Standing Ord. Empagliflozin (Empagliflozin 10 Mg Tablet) 10 mg PO DAILY [facility] Last Admin: 12/04/24 08:34 Dose: 10 mg Furosemide (Furosemide 40 Mg Tablet) 40 mg PO DAILY PRN; Protocol PRN Reason: edema Glucose (Glucose Gel 15 Gm Gel..Gram.) 15 gm PO Q15M PRN; Protocol PRN Reason: per Hypoglycemia Standing Ord. Insulin Glargine (Insulin Glargine,Hum.Rec.Anlog 100 Unit/Ml 10 Ml Vial) 15 unit SUBCUT BEDTIME [facility] Last Admin: 12/03/24 21:29 Dose: 15 unit Insulin Human Lispro (Insulin Lispro 100 Unit/Ml 3 Ml Vial) 0 unit SUBCUT QIDACHS [facility]; Protocol Last Admin: 12/04/24 17:34 Dose: 2 unit Lurasidone HCl (Lurasidone Hcl 20 Mg Tablet) 60 mg PO DAILY@1800 [facility] Last Admin: 12/04/24 17:35 Dose: 60 mg Magnesium Hydroxide (Milk Of Magnesia 30 Ml Oral.Susp) 30 ml PO DAILY PRN PRN Reason: Constipation Metoprolol Succinate (Metoprolol Succinate Er 100 Mg Tab.Er.24h) 100 mg PO DAILY [facility]; Protocol Last Admin: 12/04/24 08:34 Dose: 100 mg Nicotine (Nicotine 21 Mg Patch.Td24) 21 mg TRANSDERMA DAILY PRN PRN Reason: smoking cessation Nicotine Polacrilex (Nicotine Polacrilex 2 Mg Gum) 4 mg BUCCAL Q2H PRN PRN Reason: Nicotine Cravings Nicotine Polacrilex (Nicotine Polacrilex 2 Mg Gum) 2 mg BUCCAL Q2H PRN PRN Reason: Nicotine Cravings Nitroglycerin (Nitroglycerin 0.4 Mg Tab.Subl) 0.4 mg SUBLINGUAL Q5MX3 PRN PRN Reason: Chest Pain Omeprazole (Omeprazole 40 Mg Capsule.Dr) 40 mg PO BID@0630,1630 [facility] Last Admin: 12/04/24 17:35 Dose: 40 mg Polyethylene Glycol (Polyethylene Glycol 3350 17 Gm Powd.Pack) 17 gm PO DAILY [facility] Last Admin: 12/04/24 08:34 Dose: Not Given Senna (Sennosides 8.6 Mg Tablet) 17.2 mg PO BEDTIME PRN PRN Reason: Constipation Tamsulosin HCl (Tamsulosin Hcl 0.4 Mg Capsule) 0.4 mg PO BEDTIME [facility] Last Admin: 12/03/24 21:30 Dose: 0.4 mg Trazodone HCl (Trazodone Hcl 50 Mg Tablet) 50 mg PO BEDTIME MRX1 PRN PRN Reason: Insomnia Last Admin: 12/03/24 21:29 Dose: 50 mg Vitamin D (Cholecalciferol (Vitamin D3) 25 Mcg Tablet) 25 mcg PO DAILY [facility] Last Admin: 12/04/24 08:34 Dose: 25 mcg Allergies Allergies Allergy/AdvReac Type Severity Reaction Status Date / Time lithium [[place]] Allergy Severe Toxicity Verified 11/20/24 09:27 thiothixene Allergy Severe Swelling Verified 11/20/24 09:27 amoxicillin Allergy Mild Nose Bleed Verified 11/20/24 09:27 benztropine Allergy Unknown benztropine Verified 11/20/24 09:27 mesylate- unknown gabapentin [From NEURONTIN] Allergy Unknown Unknown Verified 11/20/24 09:27 fluphenazine [From Prolixin] Allergy Unknown Verified 11/20/24 09:27 barium sulfate AdvReac Intermediate Nausea and Verified 11/20/24 09:27 [BARIUM SULFATE] Vomiting haloperidol AdvReac Intermediate Muscle Verified 11/20/24 09:27 tension in legs diphenhydramine AdvReac Unknown urinary Verified 11/20/24 09:27 [From Benadryl] retention Assessment & Plan Assessment & Plan (1) Schizoaffective disorder, bipolar type: Status: Acute Code(s): F25.0 - Schizoaffective disorder, bipolar type (2) HOCM (hypertrophic obstructive cardiomyopathy): Status: Acute Code(s): I42.1 - Obstructive hypertrophic cardiomyopathy (3) Chronic HFrEF (heart failure with reduced ejection fraction): Status: Acute Code(s): I50.22 - Chronic systolic (congestive) heart failure (4) Coronary artery disease: Qualifiers: Coronary Disease-Associated Artery/Lesion type: [place] artery [place] vs. transplanted heart: [place] heart Associated angina: with stable angina Qualified Code(s): I25.118 - Atherosclerotic heart disease of [place] coronary artery with other forms of angina pectoris Status: Acute Code(s): I25.10 - Atherosclerotic heart disease of [place] coronary artery without angina pectoris (5) Type II diabetes with director long term care use of insulin: Status: Acute Code(s): E11.9 - Type 2 diabetes mellitus without complications; Z79.4 - long-term (current) use of insulin (6) Nocturnal hypoxemia: Status: Acute Code(s): G47.34 - Idiopathic sleep related nonobstructive alveolar hypoventilation Plan Patient is a 59-year-old male with history of schizoaffective disorder, bipolar type, DM, essential hypertension HOCM, HLD, COPD JUDY (on 2L O2 q.h.s.), constipation with history of small-bowel obstruction, with hx of severe and aggressive decompensation, typically on both Clozaril and Latuda and on a Community [employer]aines, who is a transferred from medical floor following treatment for JUHI/hypokalemia, prolonged QT due to poor fluid intake in the face of depression/SI. Patient has been off his psychiatric medications and remains depressed though SI seems to be clearing. He says he was very unhappy at his intermediate, feeling stressed by several things including his roommate who has psychotic symptoms... He said that due to his depression, the intermediate staff had a put away the scissors and knife because he was feeling unsafe. Currently denies SI. Denies AVH. Wants to get back on his medications. Formulation/clinical reasoning: Schizoaffective disorder with manic episodes and history of severe and aggressive decompensation went off medications. Currently QTC is WNL. That said, patient relies on antipsychotics (specifically Clozaril) in order to remain stable and safe. Patient agrees to restarting clozapine and Latuda at this time. Will continue to check QTC Hospital course: 11/28 depressed, isolative, but willing to continue med titration; no SI; says AH is minimal eating/drinking; showered 11/29 pt says he's good and that his mood is getting better. He denies any SI. Regarding AH he makes appropriate joke saying he does hear voices, this writers. Otherwise no AH. Pt says he's eating better. Lying in bed but pt says he'll get up and walk around after lunch. 11/30 Patient quiet, lying in his bed, awake and alert. Polite on approach and says hello. He says he is okay but that he has a lot on his mind. Environmental Engineering Manager and patient walked up and down the hallway talking a little. Patient reminisced about past times when he has been in the hospital. Environmental Engineering Manager asked about his concerns regarding living situation he says that is not really something he is thinking about at the moment, which is improvement. Patient is eating and drinking. Patient smiled a bit 12/01 -continue with clozapine titration 12/02- continue tx plan 12/04 patient is slowly stabilizing. Will very soon be back to home medication dose of Clozaril 175 mg total daily dose. Will eventually switch daytime Clozaril 25 mg to bedtime. Patient not at baseline and still fragile and vulnerable to decompensation. Patient is to remain on inpatient unit for further stabilization Plan: CV Q 15 minute checks continue Clozaril 25mg daily increased to Clozaril 150mg qhs (continue to titrate to 175mg total daily dose) Continue Latuda 60mg daily -monitor ANC qweekly for now -monitor QTC: on 11/29 QTcB Int : 471 ms Continue other home medications -flomax 0.4mg qhs Patient educated on: diagnosis and medication risk/benefits Informed Consent: understands and further education needed Reason for continued inpatient stay Substantial Risk for: rapid decompensation Time Spent With Patient Time: Total time managing care of this patient today ____ minutes.
[2024-12-04 20:00] VITALS: BP 127/63; PULSE 92; RESP 16; TEMP 36.8; O2SAT 94
[2024-12-04 20:36] LABS: Glucose, Whole Blood 205 mg/dL (60-115)
[2024-12-04] MEDS: Atorvastatin Calcium 20 MG TABLET PO (21:07)
[2024-12-04] MEDS: Tamsulosin HCL 0.4 MG CAPSULE PO (21:07)
[2024-12-04] MEDS: traZODone HCL 50 MG TABLET PO (21:07)
[2024-12-04] MEDS: Insulin Glargine,Hum.rec.anlog 100 UNIT/ML 10 ML VIAL 15 UNIT SUBCUT (21:18)
[2024-12-05] MEDS: Omeprazole 40 MG CAPSULE.DR PO ×2 (07:01→16:50)
[2024-12-05 08:15] VITALS: BP 134/65; PULSE 94; RESP 15; TEMP 36.4; O2SAT 96
[2024-12-05 08:27] LABS: Glucose, Whole Blood 146 mg/dL (60-115)
--- NOTE | 2024-12-05 08:59 | P.PNPSI_ITS ---
Subjective Subjective Date of Service: 12/05/24 Reason For Visit: Depression/decomp Interim History: Patient passive apathetic has been cooperative with care Medication Compliance: Yes Mental Status Exam Mental Status Exam Narrative: Patient casually dressed limited engagement. Poor eye contact. Somewhat psychomotor retarded slowed mentation. Mood described as okay was not combative or agitated not threatening denied hallucinations impulse control adequate judgment and insight limited he is accepting treatment Diagnostics Vital Signs (24Hr): Vital Signs - 24 hr 12/04/24 20:00 Temperature 98.2 F Pulse Rate 92 Respiratory Rate 16 Blood Pressure 127/63 Pulse Oximetry 94 Oxygen Delivery Method Room Air BMI result Body Mass Index 34.7 Labs Labs: Laboratory Results - last 48 hr 12/03/24 12/03/24 12/03/24 11:56 17:14 20:50 Absolute Neuts (auto) POC Glucose 157 H 184 H 143 H 12/04/24 12/04/24 12/04/24 07:55 08:05 12:13 Absolute Neuts (auto) 4.8 POC Glucose 158 H 144 H 12/04/24 12/04/24 12/05/24 16:54 20:30 08:12 Absolute Neuts (auto) POC Glucose 154 H 205 H 146 H Medications Medications Current Medications Acetaminophen (Acetaminophen 325 Mg Tablet) 650 mg PO Q6H PRN PRN Reason: Headache/Pain, Scale 1-10 Al Hydroxide/Mg Hydroxide (Magnesium Hydrox/Alum Hydrox 30 Ml Oral.Susp) 30 ml PO Q6H PRN PRN Reason: Heartburn/Nausea Albuterol Sulfate (Albuterol Sulfate 90 Mcg 8 Gm Inhaler) 2 puff INHALE RQ6H PRN PRN Reason: sob Aspirin (Aspirin 81 Mg Tab.Chew) 81 mg PO DAILY [facility] Last Admin: 12/04/24 08:34 Dose: 81 mg Atorvastatin Calcium (Atorvastatin Calcium 20 Mg Tablet) 20 mg PO BEDTIME [facility] Last Admin: 12/04/24 21:07 Dose: 20 mg Clozapine (Clozapine 25 Mg Tablet) 25 mg PO DAILY [facility] Last Admin: 12/04/24 08:34 Dose: 25 mg Clozapine (Clozapine 25 Mg Tablet) 150 mg PO BEDTIME [facility] Dextrose (Dextrose 50 % 25 Gm/50 Ml Syringe) 25 gm IVPUSH Q15M PRN; Protocol PRN Reason: per Hypoglycemia Standing Ord. Empagliflozin (Empagliflozin 10 Mg Tablet) 10 mg PO DAILY [facility] Last Admin: 12/04/24 08:34 Dose: 10 mg Furosemide (Furosemide 40 Mg Tablet) 40 mg PO DAILY PRN; Protocol PRN Reason: edema Glucose (Glucose Gel 15 Gm Gel..Gram.) 15 gm PO Q15M PRN; Protocol PRN Reason: per Hypoglycemia Standing Ord. Insulin Glargine (Insulin Glargine,Hum.Rec.Anlog 100 Unit/Ml 10 Ml Vial) 15 unit SUBCUT BEDTIME [facility] Last Admin: 12/04/24 21:18 Dose: 15 unit Insulin Human Lispro (Insulin Lispro 100 Unit/Ml 3 Ml Vial) 0 unit SUBCUT QIDACHS [facility]; Protocol Last Admin: 12/04/24 21:18 Dose: 4 unit Lurasidone HCl (Lurasidone Hcl 20 Mg Tablet) 60 mg PO DAILY@1800 [facility] Last Admin: 12/04/24 17:35 Dose: 60 mg Magnesium Hydroxide (Milk Of Magnesia 30 Ml Oral.Susp) 30 ml PO DAILY PRN PRN Reason: Constipation Metoprolol Succinate (Metoprolol Succinate Er 100 Mg Tab.Er.24h) 100 mg PO DAILY [facility]; Protocol Last Admin: 12/04/24 08:34 Dose: 100 mg Nicotine (Nicotine 21 Mg Patch.Td24) 21 mg TRANSDERMA DAILY PRN PRN Reason: smoking cessation Nicotine Polacrilex (Nicotine Polacrilex 2 Mg Gum) 4 mg BUCCAL Q2H PRN PRN Reason: Nicotine Cravings Nicotine Polacrilex (Nicotine Polacrilex 2 Mg Gum) 2 mg BUCCAL Q2H PRN PRN Reason: Nicotine Cravings Nitroglycerin (Nitroglycerin 0.4 Mg Tab.Subl) 0.4 mg SUBLINGUAL Q5MX3 PRN PRN Reason: Chest Pain Omeprazole (Omeprazole 40 Mg Capsule.Dr) 40 mg PO BID@0630,1630 [facility] Last Admin: 12/05/24 07:01 Dose: 40 mg Polyethylene Glycol (Polyethylene Glycol 3350 17 Gm Powd.Pack) 17 gm PO DAILY [facility] Last Admin: 12/04/24 08:34 Dose: Not Given Senna (Sennosides 8.6 Mg Tablet) 17.2 mg PO BEDTIME PRN PRN Reason: Constipation Tamsulosin HCl (Tamsulosin Hcl 0.4 Mg Capsule) 0.4 mg PO BEDTIME [facility] Last Admin: 12/04/24 21:07 Dose: 0.4 mg Trazodone HCl (Trazodone Hcl 50 Mg Tablet) 50 mg PO BEDTIME MRX1 PRN PRN Reason: Insomnia Last Admin: 12/04/24 21:07 Dose: 50 mg Vitamin D (Cholecalciferol (Vitamin D3) 25 Mcg Tablet) 25 mcg PO DAILY [facility] Last Admin: 12/04/24 08:34 Dose: 25 mcg Allergies Allergies Allergy/AdvReac Type Severity Reaction Status Date / Time lithium [[place]] Allergy Severe Toxicity Verified 11/20/24 09:27 thiothixene Allergy Severe Swelling Verified 11/20/24 09:27 amoxicillin Allergy Mild Nose Bleed Verified 11/20/24 09:27 benztropine Allergy Unknown benztropine Verified 11/20/24 09:27 mesylate- unknown gabapentin [From NEURONTIN] Allergy Unknown Unknown Verified 11/20/24 09:27 fluphenazine [From Prolixin] Allergy Unknown Verified 11/20/24 09:27 barium sulfate AdvReac Intermediate Nausea and Verified 11/20/24 09:27 [BARIUM SULFATE] Vomiting haloperidol AdvReac Intermediate Muscle Verified 11/20/24 09:27 tension in legs diphenhydramine AdvReac Unknown urinary Verified 11/20/24 09:27 [From Benadryl] retention Assessment & Plan Assessment & Plan (1) Schizoaffective disorder, bipolar type: Status: Acute Code(s): F25.0 - Schizoaffective disorder, bipolar type (2) HOCM (hypertrophic obstructive cardiomyopathy): Status: Acute Code(s): I42.1 - Obstructive hypertrophic cardiomyopathy (3) Chronic HFrEF (heart failure with reduced ejection fraction): Status: Acute Code(s): I50.22 - Chronic systolic (congestive) heart failure (4) Coronary artery disease: Qualifiers: Associated angina: with stable angina Coronary Disease-Associated Artery/Lesion type: [place] artery [place] vs. transplanted heart: [place] heart Qualified Code(s): I25.118 - Atherosclerotic heart disease of [place] coronary artery with other forms of angina pectoris Status: Acute Code(s): I25.10 - Atherosclerotic heart disease of [place] coronary artery without angina pectoris (5) Type II diabetes with jail use of insulin: Status: Acute Code(s): E11.9 - Type 2 diabetes mellitus without complications; Z79.4 - USP (current) use of insulin (6) Nocturnal hypoxemia: Status: Acute Code(s): G47.34 - Idiopathic sleep related nonobstructive alveolar hypoventilation Plan Patient is a 59-year-old male with history of schizoaffective disorder, bipolar type, DM, essential hypertension HOCM, HLD, COPD JUDY (on 2L O2 q.h.s.), constipation with history of small-bowel obstruction, with hx of severe and aggressive decompensation, typically on both Clozaril and Latuda and on a [facility], who is a transferred from medical floor following treatment for JUHI/hypokalemia, prolonged QT due to poor fluid intake in the face of depression/SI. Patient has been off his psychiatric medications and remains depressed though SI seems to be clearing. He says he was very unhappy at his detention, feeling stressed by several things including his roommate who has psychotic symptoms... He said that due to his depression, the detention staff had a put away the scissors and knife because he was feeling unsafe. Currently denies SI. Denies AVH. Wants to get back on his medications. Formulation/clinical reasoning: Schizoaffective disorder with manic episodes and history of severe and aggressive decompensation went off medications. Currently QTC is WNL. That said, patient relies on antipsychotics (specifically Clozaril) in order to remain stable and safe. Patient agrees to restarting clozapine and Latuda at this time. Will continue to check QTC Hospital course: 11/28 depressed, isolative, but willing to continue med titration; no SI; says AH is minimal eating/drinking; showered 11/29 pt says he's good and that his mood is getting better. He denies any SI. Regarding AH he makes appropriate joke saying he does hear voices, this writers. Otherwise no AH. Pt says he's eating better. Lying in bed but pt says he'll get up and walk around after lunch. 11/30 Patient quiet, lying in his bed, awake and alert. Polite on approach and says aicha. He says he is okay but that he has a lot on his mind. Water Quality Specialist and patient walked up and down the hallway talking a little. Patient reminisced about past times when he has been in the hospital. Water Quality Specialist asked about his concerns regarding living situation he says that is not really something he is thinking about at the moment, which is improvement. Patient is eating and drinking. Patient smiled a bit 12/01 -continue with clozapine titration 12/02- continue tx plan 12/04 patient is slowly stabilizing. Will very soon be back to home medication dose of Clozaril 175 mg total daily dose. Will eventually switch daytime Clozaril 25 mg to bedtime. Patient not at baseline and still fragile and vulnerable to decompensation. Patient is to remain on inpatient unit for further stabilization 12/05/2024 Continue clozapine patient flat with limited range of emotion appears cognitively dulled continue plan of care Plan: CV Q 15 minute checks continue Clozaril 25mg daily increased to Clozaril 150mg qhs (continue to titrate to 175mg total daily dose) Continue Latuda 60mg daily -monitor ANC qweekly for now -monitor QTC: on 11/29 QTcB Int : 471 ms Continue other home medications -flomax 0.4mg qhs Informed Consent: further education needed Reason for continued inpatient stay Substantial Risk for: inability to function and rapid decompensation Time Spent With Patient Time: Total time managing care of this patient today ____ minutes.
[2024-12-05 09:57] VITALS: BP 121/65; PULSE 79
[2024-12-05] MEDS: Metoprolol Succinate ER 100 MG TAB.ER.24H PO (09:57)
[2024-12-05] MEDS: cloZAPine 25 MG TABLET PO (09:57)
[2024-12-05] MEDS: Aspirin 81 MG TAB.CHEW PO (09:57)
[2024-12-05] MEDS: Cholecalciferol (Vitamin D3) 25 MCG TABLET PO (09:57)
[2024-12-05] MEDS: Empagliflozin 10 MG TABLET PO (09:57)
[2024-12-05] MEDS: polyethylene glycoL 3350 17 GM POWD.PACK PO (09:59)
[2024-12-05] MEDS: Lurasidone HCl 20 MG TABLET 60 MG PO (16:50)
[2024-12-05 17:31] LABS: Glucose, Whole Blood 249 mg/dL (60-115)
[2024-12-05] MEDS: Insulin Lispro 100 UNIT/ML 3 ML VIAL SUBCUT ×2 (17:38→21:27)
[2024-12-05 20:00] VITALS: BP 123/69; PULSE 79; TEMP 36.4; O2SAT 96
[2024-12-05 20:39] LABS: Glucose, Whole Blood 179 mg/dL (60-115)
[2024-12-05] MEDS: cloZAPine 25 MG TABLET 150 MG PO (21:26)
[2024-12-05] MEDS: Atorvastatin Calcium 20 MG TABLET PO (21:26)
[2024-12-05] MEDS: Tamsulosin HCL 0.4 MG CAPSULE PO (21:27)
[2024-12-05] MEDS: Insulin Glargine,Hum.rec.anlog 100 UNIT/ML 10 ML VIAL 15 UNIT SUBCUT (21:27)
[2024-12-06 08:23] LABS: Glucose, Whole Blood 127 mg/dL (60-115)
[2024-12-06 08:53] VITALS: BP 117/62; PULSE 78; RESP 16; TEMP 36.7; O2SAT 95
[2024-12-06 10:02] VITALS: BP 119/62; PULSE 87
[2024-12-06] MEDS: Aspirin 81 MG TAB.CHEW PO (10:02)
[2024-12-06] MEDS: Empagliflozin 10 MG TABLET PO (10:02)
[2024-12-06] MEDS: Metoprolol Succinate ER 100 MG TAB.ER.24H PO (10:02)
[2024-12-06] MEDS: Cholecalciferol (Vitamin D3) 25 MCG TABLET PO (10:03)
[2024-12-06] MEDS: cloZAPine 25 MG TABLET PO (10:03)
[2024-12-06] MEDS: Omeprazole 40 MG CAPSULE.DR PO ×2 (10:03→18:01)
[2024-12-06 12:03] LABS: Glucose, Whole Blood 196 mg/dL (60-115)
[2024-12-06] MEDS: Insulin Lispro 100 UNIT/ML 3 ML VIAL SUBCUT ×3 (13:01→21:51)
[2024-12-06 17:18] LABS: Glucose, Whole Blood 164 mg/dL (60-115)
[2024-12-06] MEDS: Lurasidone HCl 20 MG TABLET 60 MG PO (18:01)
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
[2024-12-06 20:00] VITALS: BP 111/58; PULSE 70; RESP 18; TEMP 36.4; O2SAT 96
[2024-12-06 20:45] LABS: Glucose, Whole Blood 186 mg/dL (60-115)
[2024-12-06] MEDS: Tamsulosin HCL 0.4 MG CAPSULE PO (21:50)
[2024-12-06] MEDS: Atorvastatin Calcium 20 MG TABLET PO (21:50)
[2024-12-06] MEDS: cloZAPine 25 MG TABLET 150 MG PO (21:51)
[2024-12-06] MEDS: Insulin Glargine,Hum.rec.anlog 100 UNIT/ML 10 ML VIAL 15 UNIT SUBCUT (21:51)
[2024-12-07] MEDS: Omeprazole 40 MG CAPSULE.DR PO ×2 (07:00→16:04)
[2024-12-07 08:22] VITALS: BP 119/67; PULSE 107; RESP 16; TEMP 36.6; O2SAT 97
[2024-12-07 08:34] LABS: Glucose, Whole Blood 177 mg/dL (60-115)
[2024-12-07] MEDS: Insulin Lispro 100 UNIT/ML 3 ML VIAL SUBCUT ×3 (09:53→21:16)
[2024-12-07] MEDS: Ondansetron ODT 4 MG TAB.RAPDIS TRANSLINGU (09:54)
[2024-12-07] MEDS: Cholecalciferol (Vitamin D3) 25 MCG TABLET PO (09:54)
[2024-12-07] MEDS: cloZAPine 25 MG TABLET PO (09:54)
[2024-12-07] MEDS: Empagliflozin 10 MG TABLET PO (09:54)
[2024-12-07] MEDS: Aspirin 81 MG TAB.CHEW PO (09:54)
[2024-12-07 09:55] VITALS: BP 127/70
[2024-12-07] MEDS: Metoprolol Succinate ER 100 MG TAB.ER.24H PO (09:55)
[2024-12-07 12:25] LABS: Glucose, Whole Blood 169 mg/dL (60-115)
--- NOTE | 2024-12-07 15:49 | HO.PSYCHPN ---
Subjective Subjective Date of Service: 12/07/24 Reason For Visit: Depression/decomp Interim History: c/o diarrhea. per staff, vomiting and diarrhea this morning. no change psychiatrically. Mental Status Exam Mental Status Exam Narrative: Pt is alert and oriented; behavior is quiet, isolative, cooperative, mostly lying in bed but willing to engage on approach; patient is not in distress; dressed in hospital attire with unkempt but adequate hygiene; mood is described as ok and affect congruent, kind of blunted; eye contact appropriate; Speech is quiet, slowed; not pressured; psychomotor retardation remains present; thought process is goal directed, more linear; no delusional content expressed; no SI/HI/AVH expressed. Patients insight and judgment impaired but is slowly improving Diagnostics Vital Signs (24Hr): Vital Signs - 24 hr 12/06/24 20:00 12/07/24 08:22 12/07/24 09:55 Temperature 97.5 F 98 F Pulse Rate 70 107 H Respiratory Rate 18 16 Blood Pressure 111/58 L 119/67 127/70 Pulse Oximetry 96 97 Oxygen Delivery Method Room Air Room Air BMI result Body Mass Index 34.7 Labs Labs: Laboratory Results - last 48 hr 12/05/24 12/05/24 12/06/24 17:26 20:35 07:53 POC Glucose 249 H 179 H 127 H 12/06/24 12/06/24 12/06/24 11:59 16:56 20:33 POC Glucose 196 H 164 H 186 H 12/07/24 12/07/24 08:12 12:21 POC Glucose 177 H 169 H Medications Medications Current Medications Acetaminophen (Acetaminophen 325 Mg Tablet) 650 mg PO Q6H PRN PRN Reason: Headache/Pain, Scale 1-10 Al Hydroxide/Mg Hydroxide (Magnesium Hydrox/Alum Hydrox 30 Ml Oral.Susp) 30 ml PO Q6H PRN PRN Reason: Heartburn/Nausea Albuterol Sulfate (Albuterol Sulfate 90 Mcg 8 Gm Inhaler) 2 puff INHALE RQ6H PRN PRN Reason: sob Aspirin (Aspirin 81 Mg Tab.Chew) 81 mg PO DAILY [facility] Last Admin: 12/07/24 09:54 Dose: 81 mg Atorvastatin Calcium (Atorvastatin Calcium 20 Mg Tablet) 20 mg PO BEDTIME [facility] Last Admin: 12/06/24 21:50 Dose: 20 mg Clozapine (Clozapine 25 Mg Tablet) 25 mg PO DAILY [facility] Last Admin: 12/07/24 09:54 Dose: 25 mg Clozapine (Clozapine 25 Mg Tablet) 150 mg PO BEDTIME [facility] Last Admin: 12/06/24 21:51 Dose: 150 mg Dextrose (Dextrose 50 % 25 Gm/50 Ml Syringe) 25 gm IVPUSH Q15M PRN; Protocol PRN Reason: per Hypoglycemia Standing Ord. Empagliflozin (Empagliflozin 10 Mg Tablet) 10 mg PO DAILY [facility] Last Admin: 12/07/24 09:54 Dose: 10 mg Furosemide (Furosemide 40 Mg Tablet) 40 mg PO DAILY PRN; Protocol PRN Reason: edema Glucose (Glucose Gel 15 Gm Gel..Gram.) 15 gm PO Q15M PRN; Protocol PRN Reason: per Hypoglycemia Standing Ord. Insulin Glargine (Insulin Glargine,Hum.Rec.Anlog 100 Unit/Ml 10 Ml Vial) 15 unit SUBCUT BEDTIME [facility] Last Admin: 12/06/24 21:51 Dose: 15 unit Insulin Human Lispro (Insulin Lispro 100 Unit/Ml 3 Ml Vial) 0 unit SUBCUT QIDACHS [facility]; Protocol Last Admin: 12/07/24 12:58 Dose: 2 unit Loperamide HCl (Loperamide Hcl 2 Mg Capsule) 2 mg PO Q4H PRN PRN Reason: diarrhea Lurasidone HCl (Lurasidone Hcl 20 Mg Tablet) 60 mg PO DAILY@1800 [facility] Last Admin: 12/06/24 18:01 Dose: 60 mg Magnesium Hydroxide (Milk Of Magnesia 30 Ml Oral.Susp) 30 ml PO DAILY PRN PRN Reason: Constipation Metoprolol Succinate (Metoprolol Succinate Er 100 Mg Tab.Er.24h) 100 mg PO DAILY [facility]; Protocol Last Admin: 12/07/24 09:55 Dose: 100 mg Nicotine (Nicotine 21 Mg Patch.Td24) 21 mg TRANSDERMA DAILY PRN PRN Reason: smoking cessation Nicotine Polacrilex (Nicotine Polacrilex 2 Mg Gum) 4 mg BUCCAL Q2H PRN PRN Reason: Nicotine Cravings Nicotine Polacrilex (Nicotine Polacrilex 2 Mg Gum) 2 mg BUCCAL Q2H PRN PRN Reason: Nicotine Cravings Nitroglycerin (Nitroglycerin 0.4 Mg Tab.Subl) 0.4 mg SUBLINGUAL Q5MX3 PRN PRN Reason: Chest Pain Omeprazole (Omeprazole 40 Mg Capsule.Dr) 40 mg PO BID@0630,1630 [facility] Last Admin: 12/07/24 07:00 Dose: 40 mg Ondansetron HCl (Ondansetron Odt 4 Mg Tab.Rapdis) 4 mg TRANSLINGU Q6H PRN PRN Reason: Nausea and Vomiting Last Admin: 12/07/24 09:54 Dose: 4 mg Polyethylene Glycol (Polyethylene Glycol 3350 17 Gm Powd.Pack) 17 gm PO DAILY [facility] Last Admin: 12/07/24 10:16 Dose: Not Given Senna (Sennosides 8.6 Mg Tablet) 17.2 mg PO BEDTIME PRN PRN Reason: Constipation Tamsulosin HCl (Tamsulosin Hcl 0.4 Mg Capsule) 0.4 mg PO BEDTIME [facility] Last Admin: 12/06/24 21:50 Dose: 0.4 mg Trazodone HCl (Trazodone Hcl 50 Mg Tablet) 50 mg PO BEDTIME MRX1 PRN PRN Reason: Insomnia Last Admin: 12/04/24 21:07 Dose: 50 mg Vitamin D (Cholecalciferol (Vitamin D3) 25 Mcg Tablet) 25 mcg PO DAILY [facility] Last Admin: 12/07/24 09:54 Dose: 25 mcg Allergies Allergies Allergy/AdvReac Type Severity Reaction Status Date / Time lithium [[place]] Allergy Severe Toxicity Verified 11/20/24 09:27 thiothixene Allergy Severe Swelling Verified 11/20/24 09:27 amoxicillin Allergy Mild Nose Bleed Verified 11/20/24 09:27 benztropine Allergy Unknown benztropine Verified 11/20/24 09:27 mesylate- unknown gabapentin [From NEURONTIN] Allergy Unknown Unknown Verified 11/20/24 09:27 fluphenazine [From Prolixin] Allergy Unknown Verified 11/20/24 09:27 barium sulfate AdvReac Intermediate Nausea and Verified 11/20/24 09:27 [BARIUM SULFATE] Vomiting haloperidol AdvReac Intermediate Muscle Verified 11/20/24 09:27 tension in legs diphenhydramine AdvReac Unknown urinary Verified 11/20/24 09:27 [From Benadryl] retention Assessment & Plan Assessment & Plan (1) Schizoaffective disorder, bipolar type: Status: Acute Code(s): F25.0 - Schizoaffective disorder, bipolar type (2) HOCM (hypertrophic obstructive cardiomyopathy): Status: Acute Code(s): I42.1 - Obstructive hypertrophic cardiomyopathy (3) Chronic HFrEF (heart failure with reduced ejection fraction): Status: Acute Code(s): I50.22 - Chronic systolic (congestive) heart failure (4) Coronary artery disease: Qualifiers: Coronary Disease-Associated Artery/Lesion type: [place] artery [place] vs. transplanted heart: [place] heart Associated angina: with stable angina Qualified Code(s): I25.118 - Atherosclerotic heart disease of [place] coronary artery with other forms of angina pectoris Status: Acute Code(s): I25.10 - Atherosclerotic heart disease of [place] coronary artery without angina pectoris (5) Type II diabetes with [employer] use of insulin: Status: Acute Code(s): E11.9 - Type 2 diabetes mellitus without complications; Z79.4 - nursing home (current) use of insulin (6) Nocturnal hypoxemia: Status: Acute Code(s): G47.34 - Idiopathic sleep related nonobstructive alveolar hypoventilation Plan Patient is a 59-year-old male with history of schizoaffective disorder, bipolar type, DM, essential hypertension HOCM, HLD, COPD JUDY (on 2L O2 q.h.s.), constipation with history of small-bowel obstruction, with hx of severe and aggressive decompensation, typically on both Clozaril and Latuda and on a [facility], who is a transferred from medical floor following treatment for JUHI/hypokalemia, prolonged QT due to poor fluid intake in the face of depression/SI. Patient has been off his psychiatric medications and remains depressed though SI seems to be clearing. He says he was very unhappy at his fdc, feeling stressed by several things including his roommate who has psychotic symptoms... He said that due to his depression, the fdc staff had a put away the scissors and knife because he was feeling unsafe. Currently denies SI. Denies AVH. Wants to get back on his medications. Formulation/clinical reasoning: Schizoaffective disorder with manic episodes and history of severe and aggressive decompensation went off medications. Currently QTC is WNL. That said, patient relies on antipsychotics (specifically Clozaril) in order to remain stable and safe. Patient agrees to restarting clozapine and Latuda at this time. Will continue to check QTC Hospital course: 11/28 depressed, isolative, but willing to continue med titration; no SI; says AH is minimal eating/drinking; showered 11/29 pt says he's good and that his mood is getting better. He denies any SI. Regarding AH he makes appropriate joke saying he does hear voices, this writers. Otherwise no AH. Pt says he's eating better. Lying in bed but pt says he'll get up and walk around after lunch. 11/30 Patient quiet, lying in his bed, awake and alert. Polite on approach and says aicha. He says he is okay but that he has a lot on his mind. Ferris Wheel Attendant and patient walked up and down the hallway talking a little. Patient reminisced about past times when he has been in the hospital. Ferris Wheel Attendant asked about his concerns regarding living situation he says that is not really something he is thinking about at the moment, which is improvement. Patient is eating and drinking. Patient smiled a bit 12/01 -continue with clozapine titration 12/02- continue tx plan 12/04 patient is slowly stabilizing. Will very soon be back to home medication dose of Clozaril 175 mg total daily dose. Will eventually switch daytime Clozaril 25 mg to bedtime. Patient not at baseline and still fragile and vulnerable to decompensation. Patient is to remain on inpatient unit for further stabilization 12/06: stable presentation. continue current mgmt. 12/07: vomiting/diarrhea. send GI panel. otherwise stable, continue current mgmt. Plan: CV Q 15 minute checks continue Clozaril 25mg daily increased to Clozaril 150mg qhs (continue to titrate to 175mg total daily dose) Continue Latuda 60mg daily -monitor ANC qweekly for now -monitor QTC: on 11/29 QTcB Int : 471 ms Continue other home medications -flomax 0.4mg qhs Reason for continued inpatient stay Substantial Risk for: inability to function and rapid decompensation Time Spent With Patient Time: Total time managing care of this patient today ____ minutes.
[2024-12-07 17:01] LABS: Glucose, Whole Blood 140 mg/dL (60-115)
[2024-12-07] MEDS: Lurasidone HCl 20 MG TABLET 60 MG PO (17:36)
[2024-12-07] MEDS: Loperamide HCl 2 MG CAPSULE PO ×2 (17:37→23:46)
[2024-12-07 19:45] VITALS: BP 104/56; PULSE 93; TEMP 36.6; O2SAT 94
[2024-12-07 20:47] LABS: Glucose, Whole Blood 161 mg/dL (60-115)
[2024-12-07] MEDS: Insulin Glargine,Hum.rec.anlog 100 UNIT/ML 10 ML VIAL 15 UNIT SUBCUT (21:17)
[2024-12-07] MEDS: Tamsulosin HCL 0.4 MG CAPSULE PO (21:18)
[2024-12-07] MEDS: Atorvastatin Calcium 20 MG TABLET PO (21:18)
[2024-12-07] MEDS: cloZAPine 25 MG TABLET 150 MG PO (21:18)
--- NOTE | 2024-12-08 01:23 | PC.NURSE ---
Patient incontinent of large amount of liquid stool. Unable to collect for GI panel. Immodium administered with pending effect.
[2024-12-08 07:59] LABS: Glucose, Whole Blood 162 mg/dL (60-115)
[2024-12-08 08:00] VITALS: BP 111/71; PULSE 93; RESP 16; TEMP 37; O2SAT 93
[2024-12-08 09:16] VITALS: BP 111/71; PULSE 93
[2024-12-08] MEDS: Metoprolol Succinate ER 100 MG TAB.ER.24H PO (09:16)
[2024-12-08] MEDS: Omeprazole 40 MG CAPSULE.DR PO ×2 (09:16→18:06)
[2024-12-08] MEDS: Insulin Lispro 100 UNIT/ML 3 ML VIAL SUBCUT (09:16)
[2024-12-08] MEDS: cloZAPine 25 MG TABLET PO (09:17)
[2024-12-08] MEDS: Aspirin 81 MG TAB.CHEW PO (09:17)
[2024-12-08] MEDS: Cholecalciferol (Vitamin D3) 25 MCG TABLET PO (09:17)
[2024-12-08] MEDS: Empagliflozin 10 MG TABLET PO (09:17)
--- NOTE | 2024-12-08 09:53 | HO.PSYCHPN ---
Subjective Subjective Date of Service: 12/08/24 Reason For Visit: Depression/decomp Interim History: Met with patient; discussed with team Patient says that he is doing okay; has little else to say. Loose stool seems to be slowing down though not fully resolved. Nursing so far unable to get a stool sample with GI panel which was order this weekend. Patient's outpatient group counselor Marshall Garcia came to visit today and reports that patient is at baseline and feels he is ready to return home Mental Status Exam Mental Status Exam Narrative: Pt is alert and oriented; behavior is quiet, isolative, cooperative, mostly lying in bed but willing to engage on approach; patient is not in distress; dressed in hospital attire with unkempt hair but adequate hygiene; mood is described as ok and affect congruent, kind of blunted; eye contact appropriate; Speech is quiet, slowed; not pressured; psychomotor retardation remains present; thought process is goal directed, linear; no delusional content expressed; no SI/HI; denies AVH. Patients insight and judgment adequate and at baseline. Diagnostics Vital Signs (24Hr): Vital Signs - 24 hr 12/07/24 09:55 12/07/24 19:45 12/08/24 08:00 Temperature 97.8 F 98.6 F Pulse Rate 93 93 Respiratory Rate 16 Blood Pressure 127/70 104/56 L 111/71 Pulse Oximetry 94 93 Oxygen Delivery Method Room Air Room Air 12/08/24 09:16 Temperature Pulse Rate 93 Respiratory Rate Blood Pressure 111/71 Pulse Oximetry Oxygen Delivery Method BMI result Body Mass Index 34.7 Labs Labs: Laboratory Results - last 48 hr 12/06/24 12/06/24 12/06/24 11:59 16:56 20:33 POC Glucose 196 H 164 H 186 H 12/07/24 12/07/24 12/07/24 08:12 12:21 16:54 POC Glucose 177 H 169 H 140 H 12/07/24 12/08/24 20:37 07:50 POC Glucose 161 H 162 H Medications Medications Current Medications Acetaminophen (Acetaminophen 325 Mg Tablet) 650 mg PO Q6H PRN PRN Reason: Headache/Pain, Scale 1-10 Al Hydroxide/Mg Hydroxide (Magnesium Hydrox/Alum Hydrox 30 Ml Oral.Susp) 30 ml PO Q6H PRN PRN Reason: Heartburn/Nausea Albuterol Sulfate (Albuterol Sulfate 90 Mcg 8 Gm Inhaler) 2 puff INHALE RQ6H PRN PRN Reason: sob Aspirin (Aspirin 81 Mg Tab.Chew) 81 mg PO DAILY [facility] Last Admin: 12/08/24 09:17 Dose: 81 mg Atorvastatin Calcium (Atorvastatin Calcium 20 Mg Tablet) 20 mg PO BEDTIME [facility] Last Admin: 12/07/24 21:18 Dose: 20 mg Clozapine (Clozapine 25 Mg Tablet) 25 mg PO DAILY [facility] Last Admin: 12/08/24 09:17 Dose: 25 mg Clozapine (Clozapine 25 Mg Tablet) 150 mg PO BEDTIME [facility] Last Admin: 12/07/24 21:18 Dose: 150 mg Dextrose (Dextrose 50 % 25 Gm/50 Ml Syringe) 25 gm IVPUSH Q15M PRN; Protocol PRN Reason: per Hypoglycemia Standing Ord. Empagliflozin (Empagliflozin 10 Mg Tablet) 10 mg PO DAILY [facility] Last Admin: 12/08/24 09:17 Dose: 10 mg Furosemide (Furosemide 40 Mg Tablet) 40 mg PO DAILY PRN; Protocol PRN Reason: edema Glucose (Glucose Gel 15 Gm Gel..Gram.) 15 gm PO Q15M PRN; Protocol PRN Reason: per Hypoglycemia Standing Ord. Insulin Glargine (Insulin Glargine,Hum.Rec.Anlog 100 Unit/Ml 10 Ml Vial) 15 unit SUBCUT BEDTIME [facility] Last Admin: 12/07/24 21:17 Dose: 15 unit Insulin Human Lispro (Insulin Lispro 100 Unit/Ml 3 Ml Vial) 0 unit SUBCUT QIDACHS [facility]; Protocol Last Admin: 12/08/24 09:16 Dose: 2 unit Loperamide HCl (Loperamide Hcl 2 Mg Capsule) 2 mg PO Q4H PRN PRN Reason: diarrhea Last Admin: 12/07/24 23:46 Dose: 2 mg Lurasidone HCl (Lurasidone Hcl 20 Mg Tablet) 60 mg PO DAILY@1800 [facility] Last Admin: 12/07/24 17:36 Dose: 60 mg Magnesium Hydroxide (Milk Of Magnesia 30 Ml Oral.Susp) 30 ml PO DAILY PRN PRN Reason: Constipation Metoprolol Succinate (Metoprolol Succinate Er 100 Mg Tab.Er.24h) 100 mg PO DAILY [facility]; Protocol Last Admin: 12/08/24 09:16 Dose: 100 mg Nicotine (Nicotine 21 Mg Patch.Td24) 21 mg TRANSDERMA DAILY PRN PRN Reason: smoking cessation Nicotine Polacrilex (Nicotine Polacrilex 2 Mg Gum) 4 mg BUCCAL Q2H PRN PRN Reason: Nicotine Cravings Nicotine Polacrilex (Nicotine Polacrilex 2 Mg Gum) 2 mg BUCCAL Q2H PRN PRN Reason: Nicotine Cravings Nitroglycerin (Nitroglycerin 0.4 Mg Tab.Subl) 0.4 mg SUBLINGUAL Q5MX3 PRN PRN Reason: Chest Pain Omeprazole (Omeprazole 40 Mg Capsule.Dr) 40 mg PO BID@0630,1630 [facility] Last Admin: 12/08/24 09:16 Dose: 40 mg Ondansetron HCl (Ondansetron Odt 4 Mg Tab.Rapdis) 4 mg TRANSLINGU Q6H PRN PRN Reason: Nausea and Vomiting Last Admin: 12/07/24 09:54 Dose: 4 mg Polyethylene Glycol (Polyethylene Glycol 3350 17 Gm Powd.Pack) 17 gm PO DAILY [facility] Last Admin: 12/08/24 09:15 Dose: Not Given Senna (Sennosides 8.6 Mg Tablet) 17.2 mg PO BEDTIME PRN PRN Reason: Constipation Tamsulosin HCl (Tamsulosin Hcl 0.4 Mg Capsule) 0.4 mg PO BEDTIME [facility] Last Admin: 12/07/24 21:18 Dose: 0.4 mg Trazodone HCl (Trazodone Hcl 50 Mg Tablet) 50 mg PO BEDTIME MRX1 PRN PRN Reason: Insomnia Last Admin: 12/04/24 21:07 Dose: 50 mg Vitamin D (Cholecalciferol (Vitamin D3) 25 Mcg Tablet) 25 mcg PO DAILY [facility] Last Admin: 12/08/24 09:17 Dose: 25 mcg Allergies Allergies Allergy/AdvReac Type Severity Reaction Status Date / Time lithium [[place]] Allergy Severe Toxicity Verified 11/20/24 09:27 thiothixene Allergy Severe Swelling Verified 11/20/24 09:27 amoxicillin Allergy Mild Nose Bleed Verified 11/20/24 09:27 benztropine Allergy Unknown benztropine Verified 11/20/24 09:27 mesylate- unknown gabapentin [From NEURONTIN] Allergy Unknown Unknown Verified 11/20/24 09:27 fluphenazine [From Prolixin] Allergy Unknown Verified 11/20/24 09:27 barium sulfate AdvReac Intermediate Nausea and Verified 11/20/24 09:27 [BARIUM SULFATE] Vomiting haloperidol AdvReac Intermediate Muscle Verified 11/20/24 09:27 tension in legs diphenhydramine AdvReac Unknown urinary Verified 11/20/24 09:27 [From Benadryl] retention Assessment & Plan Assessment & Plan (1) Schizoaffective disorder, bipolar type: Status: Acute Code(s): F25.0 - Schizoaffective disorder, bipolar type (2) HOCM (hypertrophic obstructive cardiomyopathy): Status: Acute Code(s): I42.1 - Obstructive hypertrophic cardiomyopathy (3) Chronic HFrEF (heart failure with reduced ejection fraction): Status: Acute Code(s): I50.22 - Chronic systolic (congestive) heart failure (4) Coronary artery disease: Qualifiers: Associated angina: with stable angina Coronary Disease-Associated Artery/Lesion type: [place] artery [place] vs. transplanted heart: [place] heart Qualified Code(s): I25.118 - Atherosclerotic heart disease of [place] coronary artery with other forms of angina pectoris Status: Acute Code(s): I25.10 - Atherosclerotic heart disease of [place] coronary artery without angina pectoris (5) Type II diabetes with senior living use of insulin: Status: Acute Code(s): E11.9 - Type 2 diabetes mellitus without complications; Z79.4 - detention (current) use of insulin (6) Nocturnal hypoxemia: Status: Acute Code(s): G47.34 - Idiopathic sleep related nonobstructive alveolar hypoventilation Plan Patient is a 59-year-old male with history of schizoaffective disorder, bipolar type, DM, essential hypertension HOCM, HLD, COPD JUDY (on 2L O2 q.h.s.), constipation with history of small-bowel obstruction, with hx of severe and aggressive decompensation, typically on both Clozaril and Latuda and on a [employer], who is a transferred from medical floor following treatment for JUHI/hypokalemia, prolonged QT due to poor fluid intake in the face of depression/SI. Patient has been off his psychiatric medications and remains depressed though SI seems to be clearing. He says he was very unhappy at his fdc, feeling stressed by several things including his roommate who has psychotic symptoms... He said that due to his depression, the fdc staff had a put away the scissors and knife because he was feeling unsafe. Currently denies SI. Denies AVH. Wants to get back on his medications. Formulation/clinical reasoning: Schizoaffective disorder with manic episodes and history of severe and aggressive decompensation went off medications. Currently QTC is WNL. That said, patient relies on antipsychotics (specifically Clozaril) in order to remain stable and safe. Patient agrees to restarting clozapine and Latuda at this time. Will continue to check QTC Hospital course: 11/28 depressed, isolative, but willing to continue med titration; no SI; says AH is minimal eating/drinking; showered 11/29 pt says he's good and that his mood is getting better. He denies any SI. Regarding AH he makes appropriate joke saying he does hear voices, this writers. Otherwise no AH. Pt says he's eating better. Lying in bed but pt says he'll get up and walk around after lunch. 11/30 Patient quiet, lying in his bed, awake and alert. Polite on approach and says aicha. He says he is okay but that he has a lot on his mind. Rug Underlay Machine Operator and patient walked up and down the hallway talking a little. Patient reminisced about past times when he has been in the hospital. Rug Underlay Machine Operator asked about his concerns regarding living situation he says that is not really something he is thinking about at the moment, which is improvement. Patient is eating and drinking. Patient smiled a bit 12/01 -continue with clozapine titration 12/02- continue tx plan 12/04 patient is slowly stabilizing. Will very soon be back to home medication dose of Clozaril 175 mg total daily dose. Will eventually switch daytime Clozaril 25 mg to bedtime. Patient not at baseline and still fragile and vulnerable to decompensation. Patient is to remain on inpatient unit for further stabilization 12/06: stable presentation. continue current mgmt. 12/07: vomiting/diarrhea. send GI panel. otherwise stable, continue current mgmt. 12/08 Patient says that he is doing okay; has little else to say. Loose stool seems to be slowing down though not fully resolved. No vomiting. Nursing so far unable to get a stool sample with GI panel which was order this weekend. Patient's outpatient group counselor Marshall Garcia came to visit today and reports that patient is at baseline and feels he is ready to return home Plan: CV Q 15 minute checks increased to Clozaril 175mg qhs; dc daily dose (continue to titrate to 175mg total daily dose) Continue Latuda 60mg daily -monitor ANC qweekly for now -monitor QTC: on 11/29 QTcB Int : 471 ms Continue other home medications -flomax 0.4mg qhs Patient educated on: diagnosis Informed Consent: understands Reason for continued inpatient stay Substantial Risk for: stable for discharge Time Spent With Patient Time: Total time managing care of this patient today ____ minutes.
[2024-12-08 12:29] LABS: Glucose, Whole Blood 167 mg/dL (60-115)
[2024-12-08 17:13] LABS: Glucose, Whole Blood 135 mg/dL (60-115)
[2024-12-08] MEDS: Lurasidone HCl 20 MG TABLET 60 MG PO (18:06)
[2024-12-08 19:45] VITALS: BP 126/60; PULSE 80; RESP 18; TEMP 33.9; O2SAT 95
[2024-12-08 20:31] LABS: Glucose, Whole Blood 146 mg/dL (60-115)
[2024-12-08] MEDS: Insulin Glargine,Hum.rec.anlog 100 UNIT/ML 10 ML VIAL 15 UNIT SUBCUT (20:50)
[2024-12-08] MEDS: cloZAPine 25 MG TABLET 150 MG PO (20:51)
[2024-12-08] MEDS: Tamsulosin HCL 0.4 MG CAPSULE PO (20:51)
[2024-12-08] MEDS: Atorvastatin Calcium 20 MG TABLET PO (20:54)
[2024-12-08] MEDS: Loperamide HCl 2 MG CAPSULE PO (20:54)
[2024-12-08] MEDS: traZODone HCL 50 MG TABLET PO (20:54)
--- NOTE | 2024-12-09 | ECG_ITS ---
Test Reason : Qtc monitor Blood Pressure : */* mmHG Vent. Rate : 79 BPM Atrial Rate : 79 BPM P-R Int : 174 ms QRS Dur : 110 ms QT Int : 438 ms P-R-T Axes : 71 35 173 degrees QTcB Int : 502 ms Normal sinus rhythm Minimal voltage criteria for LVH, may be normal variant ( Sokolow-Vences ) ST & T wave abnormality, consider inferolateral ischemia Prolonged QT Abnormal ECG When compared with ECG of 04-Dec-2024 08:52, No significant change was found Referred By: Geraldo Garcia Electronically Signed By: JEREMIAS MARTIN MD
[2024-12-09 08:09] VITALS: BP 136/67; PULSE 75; RESP 16; TEMP 36.3; O2SAT 94
[2024-12-09 08:22] LABS: Glucose, Whole Blood 112 mg/dL (60-115)
[2024-12-09] MEDS: Aspirin 81 MG TAB.CHEW PO (08:42)
[2024-12-09] MEDS: Omeprazole 40 MG CAPSULE.DR PO ×2 (08:43→17:37)
[2024-12-09] MEDS: Cholecalciferol (Vitamin D3) 25 MCG TABLET PO (08:43)
[2024-12-09] MEDS: Metoprolol Succinate ER 100 MG TAB.ER.24H PO (08:43)
[2024-12-09] MEDS: Empagliflozin 10 MG TABLET PO (08:43)
[2024-12-09 12:42] LABS: Glucose, Whole Blood 177 mg/dL (60-115)
[2024-12-09] MEDS: Insulin Lispro 100 UNIT/ML 3 ML VIAL SUBCUT (13:26)
--- NOTE | 2024-12-09 15:54 | P.PNPSI_ITS ---
Subjective Subjective Date of Service: 12/09/24 Reason For Visit: Depression/decomp Interim History: Met with patient; discussed with team Patient reports that he is overall okay and is okay with returning to assisted. Talked about his struggles holding a grudge and how it is hard for him to let it go. Talked about difficulty with his roommate but accepts the situation and that he will be okay with it. Regarding loose stool, patient said it is getting better and had 1 bout of loose stool this morning however later on had firm bowel movement. Patient said that loose stool typically happens when he restarts his medications and that he has not felt otherwise ill; though he was feeling nauseous and vomitus a day ago, this too has resolved. Mental Status Exam Mental Status Exam Narrative: Pt is alert and oriented; behavior is quiet, isolative, cooperative, more active and engaged on approach; patient is not in distress; dressed in hospital attire with unkempt hair but adequate hygiene; mood is described as ok and affect congruent, kind of blunted; eye contact appropriate; Speech is quiet, but normal rate and prosody; not pressured; some psychomotor retardation remains present; thought process is goal directed, linear; no delusional content expressed; no SI/HI; AH is minimal. Patients insight and judgment adequate and at baseline. Diagnostics Vital Signs (24Hr): Vital Signs - 24 hr 12/08/24 19:45 12/09/24 08:09 Temperature 93.1 F L 97.3 F Pulse Rate 80 75 Respiratory Rate 18 16 Blood Pressure 126/60 136/67 Pulse Oximetry 95 94 Oxygen Delivery Method Room Air Room Air BMI result Body Mass Index 34.7 Labs Labs: Laboratory Results - last 48 hr 12/07/24 12/07/24 12/08/24 16:54 20:37 07:50 POC Glucose 140 H 161 H 162 H 12/08/24 12/08/24 12/08/24 12:26 17:05 20:27 POC Glucose 167 H 135 H 146 H 12/09/24 12/09/24 08:16 12:37 POC Glucose 112 177 H Medications Medications Current Medications Acetaminophen (Acetaminophen 325 Mg Tablet) 650 mg PO Q6H PRN PRN Reason: Headache/Pain, Scale 1-10 Al Hydroxide/Mg Hydroxide (Magnesium Hydrox/Alum Hydrox 30 Ml Oral.Susp) 30 ml PO Q6H PRN PRN Reason: Heartburn/Nausea Albuterol Sulfate (Albuterol Sulfate 90 Mcg 8 Gm Inhaler) 2 puff INHALE RQ6H PRN PRN Reason: sob Aspirin (Aspirin 81 Mg Tab.Chew) 81 mg PO DAILY [facility] Last Admin: 12/09/24 08:42 Dose: 81 mg Atorvastatin Calcium (Atorvastatin Calcium 20 Mg Tablet) 20 mg PO BEDTIME [facility] Last Admin: 12/08/24 20:54 Dose: 20 mg Clozapine (Clozapine 25 Mg Tablet) 175 mg PO BEDTIME [facility] Dextrose (Dextrose 50 % 25 Gm/50 Ml Syringe) 25 gm IVPUSH Q15M PRN; Protocol PRN Reason: per Hypoglycemia Standing Ord. Empagliflozin (Empagliflozin 10 Mg Tablet) 10 mg PO DAILY [facility] Last Admin: 12/09/24 08:43 Dose: 10 mg Furosemide (Furosemide 40 Mg Tablet) 40 mg PO DAILY PRN; Protocol PRN Reason: edema Glucose (Glucose Gel 15 Gm Gel..Gram.) 15 gm PO Q15M PRN; Protocol PRN Reason: per Hypoglycemia Standing Ord. Insulin Glargine (Insulin Glargine,Hum.Rec.Anlog 100 Unit/Ml 10 Ml Vial) 15 unit SUBCUT BEDTIME [facility] Last Admin: 12/08/24 20:50 Dose: 15 unit Insulin Human Lispro (Insulin Lispro 100 Unit/Ml 3 Ml Vial) 0 unit SUBCUT QIDACHS [facility]; Protocol Last Admin: 12/09/24 13:26 Dose: 2 unit Loperamide HCl (Loperamide Hcl 2 Mg Capsule) 2 mg PO Q4H PRN PRN Reason: diarrhea Last Admin: 12/08/24 20:54 Dose: 2 mg Lurasidone HCl (Lurasidone Hcl 20 Mg Tablet) 60 mg PO DAILY@1800 [facility] Last Admin: 12/08/24 18:06 Dose: 60 mg Magnesium Hydroxide (Milk Of Magnesia 30 Ml Oral.Susp) 30 ml PO DAILY PRN PRN Reason: Constipation Metoprolol Succinate (Metoprolol Succinate Er 100 Mg Tab.Er.24h) 100 mg PO DAILY [facility]; Protocol Last Admin: 12/09/24 08:43 Dose: 100 mg Nicotine (Nicotine 21 Mg Patch.Td24) 21 mg TRANSDERMA DAILY PRN PRN Reason: smoking cessation Nicotine Polacrilex (Nicotine Polacrilex 2 Mg Gum) 4 mg BUCCAL Q2H PRN PRN Reason: Nicotine Cravings Nicotine Polacrilex (Nicotine Polacrilex 2 Mg Gum) 2 mg BUCCAL Q2H PRN PRN Reason: Nicotine Cravings Nitroglycerin (Nitroglycerin 0.4 Mg Tab.Subl) 0.4 mg SUBLINGUAL Q5MX3 PRN PRN Reason: Chest Pain Omeprazole (Omeprazole 40 Mg Capsule.Dr) 40 mg PO BID@0630,1630 [facility] Last Admin: 12/09/24 08:43 Dose: 40 mg Ondansetron HCl (Ondansetron Odt 4 Mg Tab.Rapdis) 4 mg TRANSLINGU Q6H PRN PRN Reason: Nausea and Vomiting Last Admin: 12/07/24 09:54 Dose: 4 mg Polyethylene Glycol (Polyethylene Glycol 3350 17 Gm Powd.Pack) 17 gm PO DAILY [facility] Last Admin: 12/09/24 08:44 Dose: Not Given Senna (Sennosides 8.6 Mg Tablet) 17.2 mg PO BEDTIME PRN PRN Reason: Constipation Tamsulosin HCl (Tamsulosin Hcl 0.4 Mg Capsule) 0.4 mg PO BEDTIME [facility] Last Admin: 12/08/24 20:51 Dose: 0.4 mg Trazodone HCl (Trazodone Hcl 50 Mg Tablet) 50 mg PO BEDTIME MRX1 PRN PRN Reason: Insomnia Last Admin: 12/08/24 20:54 Dose: 50 mg Vitamin D (Cholecalciferol (Vitamin D3) 25 Mcg Tablet) 25 mcg PO DAILY [facility] Last Admin: 12/09/24 08:43 Dose: 25 mcg Zinc Oxide (Zinc Oxide (Triple Paste) 56.7 Gm Oint) 1 appl TOPICAL QID PRN; Protocol PRN Reason: Diaper Rash Allergies Allergies Allergy/AdvReac Type Severity Reaction Status Date / Time lithium [[place]] Allergy Severe Toxicity Verified 11/20/24 09:27 thiothixene Allergy Severe Swelling Verified 11/20/24 09:27 amoxicillin Allergy Mild Nose Bleed Verified 11/20/24 09:27 benztropine Allergy Unknown benztropine Verified 11/20/24 09:27 mesylate- unknown gabapentin [From NEURONTIN] Allergy Unknown Unknown Verified 11/20/24 09:27 fluphenazine [From Prolixin] Allergy Unknown Verified 11/20/24 09:27 barium sulfate AdvReac Intermediate Nausea and Verified 11/20/24 09:27 [BARIUM SULFATE] Vomiting haloperidol AdvReac Intermediate Muscle Verified 11/20/24 09:27 tension in legs diphenhydramine AdvReac Unknown urinary Verified 11/20/24 09:27 [From Benadryl] retention Assessment & Plan Assessment & Plan (1) Schizoaffective disorder, bipolar type: Status: Acute Code(s): F25.0 - Schizoaffective disorder, bipolar type (2) HOCM (hypertrophic obstructive cardiomyopathy): Status: Acute Code(s): I42.1 - Obstructive hypertrophic cardiomyopathy (3) Chronic HFrEF (heart failure with reduced ejection fraction): Status: Acute Code(s): I50.22 - Chronic systolic (congestive) heart failure (4) Coronary artery disease: Qualifiers: Associated angina: with stable angina Coronary Disease-Associated Artery/Lesion type: [place] artery [place] vs. transplanted heart: [place] heart Qualified Code(s): I25.118 - Atherosclerotic heart disease of [place] coronary artery with other forms of angina pectoris Status: Acute Code(s): I25.10 - Atherosclerotic heart disease of [place] coronary artery without angina pectoris (5) Type II diabetes with superintendent container terminal use of insulin: Status: Acute Code(s): E11.9 - Type 2 diabetes mellitus without complications; Z79.4 - manager long term care (current) use of insulin (6) Nocturnal hypoxemia: Status: Acute Code(s): G47.34 - Idiopathic sleep related nonobstructive alveolar hypoventilation Plan Patient is a 59-year-old male with history of schizoaffective disorder, bipolar type, DM, essential hypertension HOCM, HLD, COPD JUDY (on 2L O2 q.h.s.), constipation with history of small-bowel obstruction, with hx of severe and aggressive decompensation, typically on both Clozaril and Latuda and on a [facility], who is a transferred from medical floor following treatment for JUHI/hypokalemia, prolonged QT due to poor fluid intake in the face of depression/SI. Patient has been off his psychiatric medications and remains depressed though SI seems to be clearing. He says he was very unhappy at his assisted, feeling stressed by several things including his roommate who has psychotic symptoms... He said that due to his depression, the assisted staff had a put away the scissors and knife because he was feeling unsafe. Currently denies SI. Denies AVH. Wants to get back on his medications. Formulation/clinical reasoning: Schizoaffective disorder with manic episodes and history of severe and aggressive decompensation went off medications. Currently QTC is WNL. That said, patient relies on antipsychotics (specifically Clozaril) in order to remain stable and safe. Patient agrees to restarting clozapine and Latuda at this time. Will continue to check QTC Hospital course: 11/28 depressed, isolative, but willing to continue med titration; no SI; says AH is minimal eating/drinking; showered 11/29 pt says he's good and that his mood is getting better. He denies any SI. Regarding AH he makes appropriate joke saying he does hear voices, this writers. Otherwise no AH. Pt says he's eating better. Lying in bed but pt says he'll get up and walk around after lunch. 11/30 Patient quiet, lying in his bed, awake and alert. Polite on approach and says aicha. He says he is okay but that he has a lot on his mind. Trim Setter Helper and patient walked up and down the hallway talking a little. Patient reminisced about past times when he has been in the hospital. Trim Setter Helper asked about his concerns regarding living situation he says that is not really something he is thinking about at the moment, which is improvement. Patient is eating and drinking. Patient smiled a bit 12/01 -continue with clozapine titration 12/02- continue tx plan 12/04 patient is slowly stabilizing. Will very soon be back to home medication dose of Clozaril 175 mg total daily dose. Will eventually switch daytime Clozaril 25 mg to bedtime. Patient not at baseline and still fragile and vulnerable to decompensation. Patient is to remain on inpatient unit for further stabilization 12/06: stable presentation. continue current mgmt. 12/07: vomiting/diarrhea. send GI panel. otherwise stable, continue current mgmt. 12/08 Patient says that he is doing okay; has little else to say. Loose stool seems to be slowing down though not fully resolved. No vomiting. Nursing so far unable to get a stool sample with GI panel which was order this weekend. Patient's outpatient group insurance specialist Marshall Garcia came to visit today and reports that patient is at baseline and feels he is ready to return home 3/ Patient reports that he is overall okay and is okay with returning to assisted. Talked about his struggles holding a grudge and how it is hard for him to let it go. Talked about difficulty with his roommate but accepts the situation and that he will be okay with it. Regarding loose stool, patient said it is getting better and had 1 bout of loose stool this morning however later on had firm bowel movement. Patient said that loose stool typically happens when he restarts his medications and that he has not felt otherwise ill; though he was feeling nauseous and vomitus a day ago, this too has resolved. -trying to collect stool sample for GI panel however nursing has not been successful in doing so; that said loose stool seems to be resolving Patient is improved; per collateral he is at baseline and group insurance specialist reports that he is fine to return home. Patient is amenable to this. He remains in good behavioral and impulse control and denies any SI and that AH is minimal. Patient is not in imminent risk for harm to self or others. He is appropriate to return to the community for treatment and returning to a supportive, structured environment. Will proceed with discharge planning Plan: CV Q 15 minute checks increased to Clozaril 175mg qhs; dc daily dose (continue to titrate to 175mg total daily dose) Continue Latuda 60mg daily -monitor ANC qweekly for now -monitor QTC: on 11/29 QTcB Int : 471 ms Continue other home medications -flomax 0.4mg qhs Patient educated on: diagnosis, medication risk/benefits and medical condition Informed Consent: understands Reason for continued inpatient stay Substantial Risk for: stable for discharge Time Spent With Patient Time: Total time managing care of this patient today ____ minutes.
[2024-12-09 17:16] LABS: Glucose, Whole Blood 112 mg/dL (60-115)
[2024-12-09] MEDS: Lurasidone HCl 20 MG TABLET 60 MG PO (17:37)
[2024-12-09 19:55] VITALS: BP 121/64; PULSE 78; TEMP 36.4; O2SAT 94
[2024-12-09 20:51] LABS: Glucose, Whole Blood 117 mg/dL (60-115)
[2024-12-09] MEDS: Tamsulosin HCL 0.4 MG CAPSULE PO (21:11)
[2024-12-09] MEDS: Insulin Glargine,Hum.rec.anlog 100 UNIT/ML 10 ML VIAL 15 UNIT SUBCUT (21:11)
[2024-12-09] MEDS: Atorvastatin Calcium 20 MG TABLET PO (21:11)
[2024-12-09] MEDS: cloZAPine 25 MG TABLET 175 MG PO (21:11)
[2024-12-10] MEDS: Omeprazole 40 MG CAPSULE.DR PO (06:42)
[2024-12-10 07:53] VITALS: BP 120/66; PULSE 77; RESP 18; TEMP 36.3; O2SAT 99
[2024-12-10 07:59] LABS: Glucose, Whole Blood 125 mg/dL (60-115)
[2024-12-10] MEDS: Cholecalciferol (Vitamin D3) 25 MCG TABLET PO (08:13)
[2024-12-10] MEDS: Metoprolol Succinate ER 100 MG TAB.ER.24H PO (08:13)
[2024-12-10] MEDS: Aspirin 81 MG TAB.CHEW PO (08:13)
[2024-12-10] MEDS: Empagliflozin 10 MG TABLET PO (08:13)
--- NOTE | 2024-12-10 11:03 | P.DS_ITS ---
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: Status: Acute (6) Nocturnal hypoxemia: Status: Acute DS: Medications Discharge Medications Home Medications: Home Medications ?Medication ?Instructions ?Recorded ?Confirmed aluminum-mag hydroxide-simethicone 10 ml PO TID PRN Indigestion 05/27/24 11/26/24 200 mg-200 mg-20 mg/5 mL oral susp aspirin 81 mg tablet,delayed 81 mg PO DAILY 11/20/24 11/26/24 release atorvastatin 20 mg tablet 20 mg PO BEDTIME 11/20/24 11/26/24 cholecalciferol (vitamin D3) 25 25 mcg PO DAILY 11/20/24 11/26/24 mcg (1,000 unit) tablet empagliflozin 10 mg tablet 10 mg PO DAILY 11/20/24 11/26/24 (Jardiance) insulin glargine 100 unit/mL (3 15 unit subcut BEDTIME 11/20/24 11/26/24 mL) subcutaneous pen (Lantus Solostar U-100 Insulin) omeprazole 20 mg capsule,delayed 40 mg PO BID@0630,1630 11/20/24 11/26/24 release metoprolol succinate 100 mg 100 mg PO DAILY Hypertension 11/26/24 11/26/24 tablet,extended release 24 hr Previous Rx's ?Medication ?Instructions ?Recorded testosterone 1 % (50 mg/5 gram) 1 packet transdermal DAILY 30 days 07/02/24 transdermal gel packet #150 grams acetaminophen 325 mg tablet 650 mg (2 x 325 mg) PO Q6H PRN 11/11/24 (Tylenol) Pain (Scale Score 1-3) #60 tabs albuterol sulfate 90 mcg/actuation 2 puff inhalation Q6H PRN 11/11/24 aerosol inhaler Shortness Of Breath Or Wheezing 30 days #1 inhaler blood sugar diagnostic (OneTouch #100 ea 11/11/24 Verio test strips) blood-glucose meter (OneTouch #1 ea 11/11/24 Verio Flex Meter) lancets 33 gauge (OneTouch Delica #100 ea 11/11/24 Plus Lancet) linagliptin 5 mg tablet (Tradjenta) 5 mg PO DAILY 30 days #30 tabs 11/11/24 nitroglycerin 0.4 mg sublingual 0.4 mg sublingual Q5M PRN Chest 11/11/24 tablet Pain #14 tabs pen needle, diabetic 32 gauge x #100 ea 11/11/24 (BD Erica 2nd Gen Pen Needle) clozapine 100 mg tablet 100 mg PO BEDTIME 30 days #30 tabs 12/10/24 clozapine 25 mg tablet 25 mg PO BEDTIME 30 days #30 tabs 12/10/24 clozapine 50 mg tablet 50 mg PO BEDTIME 30 days #30 tabs 12/10/24 lurasidone 60 mg tablet 60 mg PO DAILY@1800 30 days #30 12/10/24 tabs nicotine (polacrilex) 4 mg buccal 4 mg buccal Q2H PRN Smoking 12/10/24 lozenge Cessation 30 days #108 ea polyethylene glycol 3350 17 gram 17 g PO DAILY constipation 30 days 12/10/24 oral powder packet #30 ea sennosides 8.6 mg-docusate sodium 2 tab PO DAILY constipation 30 12/10/24 50 mg tablet (Senna Plus) days #60 tabs tamsulosin 0.4 mg capsule 0.4 mg PO BEDTIME 30 days #30 caps 12/10/24 trazodone 50 mg tablet 50 mg PO BEDTIME PRN Insomnia 30 12/10/24 days #30 tabs Mental Status Exam Mental Status Exam Narrative: Pt is alert and oriented; behavior is quiet, cooperative; patient is not in distress; dressed in hospital attire with unkempt hair but adequate hygiene; mood is described as ok and affect congruent, more expressive; eye contact appropriate; Speech is normal rate, volume and prosody; not pressured; no psychomotor retardation remains; thought process is goal directed, linear; no delusional content expressed; no SI/HI; AH is minimal. Patients insight and judgment adequate and at baseline. Data Data Completed and Pending Completed studies during hospitalization [Text1]: 12/03/24 12/03/24 12/03/24 11:56 17:14 20:50 Absolute Neuts (auto) POC Glucose 157 H 184 H 143 H Stl C. cayetanensis PCR Stool Rotavirus A PCR Stl Adenov F 40/41 PCR Stool Astrovirus (PCR) Stool Campylobacter PCR Stool Cryptosporidium PCR Stl Sh Tox Pr E STEC PCR Stool E coli O157 PCR Stl Enterotoxigenic E PCR Stool EPEC (PCR) Stool EAEC (PCR) Stl E. histolytica PCR Stool Giardia Lamblia PCR Stl P. shigelloides PCR Stool Salmonella PCR Stool Sapovirus (PCR) Stl Shigella/EIEC PCR St Y.enterocolitica PCR Stool Vibrio (PCR) Stl Vibrio cholerae PCR Stl Norovirus GI/GII PCR 12/04/24 12/04/24 12/04/24 07:55 08:05 12:13 Absolute Neuts (auto) 4.8 POC Glucose 158 H 144 H Stl C. cayetanensis PCR Stool Rotavirus A PCR Stl Adenov F 40/41 PCR Stool Astrovirus (PCR) Stool Campylobacter PCR Stool Cryptosporidium PCR Stl Sh Tox Pr E STEC PCR Stool E coli O157 PCR Stl Enterotoxigenic E PCR Stool EPEC (PCR) Stool EAEC (PCR) Stl E. histolytica PCR Stool Giardia Lamblia PCR Stl P. shigelloides PCR Stool Salmonella PCR Stool Sapovirus (PCR) Stl Shigella/EIEC PCR St Y.enterocolitica PCR Stool Vibrio (PCR) Stl Vibrio cholerae PCR Stl Norovirus GI/GII PCR 12/04/24 12/04/24 12/05/24 16:54 20:30 08:12 Absolute Neuts (auto) POC Glucose 154 H 205 H 146 H Stl C. cayetanensis PCR Stool Rotavirus A PCR Stl Adenov F 40/41 PCR Stool Astrovirus (PCR) Stool Campylobacter PCR Stool Cryptosporidium PCR Stl Sh Tox Pr E STEC PCR Stool E coli O157 PCR Stl Enterotoxigenic E PCR Stool EPEC (PCR) Stool EAEC (PCR) Stl E. histolytica PCR Stool Giardia Lamblia PCR Stl P. shigelloides PCR Stool Salmonella PCR Stool Sapovirus (PCR) Stl Shigella/EIEC PCR St Y.enterocolitica PCR Stool Vibrio (PCR) Stl Vibrio cholerae PCR Stl Norovirus GI/GII PCR 12/05/24 12/05/24 12/06/24 17:26 20:35 07:53 Absolute Neuts (auto) POC Glucose 249 H 179 H 127 H Stl C. cayetanensis PCR Stool Rotavirus A PCR Stl Adenov F 40/41 PCR Stool Astrovirus (PCR) Stool Campylobacter PCR Stool Cryptosporidium PCR Stl Sh Tox Pr E STEC PCR Stool E coli O157 PCR Stl Enterotoxigenic E PCR Stool EPEC (PCR) Stool EAEC (PCR) Stl E. histolytica PCR Stool Giardia Lamblia PCR Stl P. shigelloides PCR Stool Salmonella PCR Stool Sapovirus (PCR) Stl Shigella/EIEC PCR St Y.enterocolitica PCR Stool Vibrio (PCR) Stl Vibrio cholerae PCR Stl Norovirus GI/GII PCR 12/06/24 12/06/24 12/06/24 11:59 16:56 20:33 Absolute Neuts (auto) POC Glucose 196 H 164 H 186 H Stl C. cayetanensis PCR Stool Rotavirus A PCR Stl Adenov F 40/41 PCR Stool Astrovirus (PCR) Stool Campylobacter PCR Stool Cryptosporidium PCR Stl Sh Tox Pr E STEC PCR Stool E coli O157 PCR Stl Enterotoxigenic E PCR Stool EPEC (PCR) Stool EAEC (PCR) Stl E. histolytica PCR Stool Giardia Lamblia PCR Stl P. shigelloides PCR Stool Salmonella PCR Stool Sapovirus (PCR) Stl Shigella/EIEC PCR St Y.enterocolitica PCR Stool Vibrio (PCR) Stl Vibrio cholerae PCR Stl Norovirus GI/GII PCR 12/07/24 12/07/24 12/07/24 08:12 12:21 16:54 Absolute Neuts (auto) POC Glucose 177 H 169 H 140 H Stl C. cayetanensis PCR Stool Rotavirus A PCR Stl Adenov F 40/41 PCR Stool Astrovirus (PCR) Stool Campylobacter PCR Stool Cryptosporidium PCR Stl Sh Tox Pr E STEC PCR Stool E coli O157 PCR Stl Enterotoxigenic E PCR Stool EPEC (PCR) Stool EAEC (PCR) Stl E. histolytica PCR Stool Giardia Lamblia PCR Stl P. shigelloides PCR Stool Salmonella PCR Stool Sapovirus (PCR) Stl Shigella/EIEC PCR St Y.enterocolitica PCR Stool Vibrio (PCR) Stl Vibrio cholerae PCR Stl Norovirus GI/GII PCR 12/07/24 12/08/24 12/08/24 20:37 07:50 12:26 Absolute Neuts (auto) POC Glucose 161 H 162 H 167 H Stl C. cayetanensis PCR Stool Rotavirus A PCR Stl Adenov F 40/41 PCR Stool Astrovirus (PCR) Stool Campylobacter PCR Stool Cryptosporidium PCR Stl Sh Tox Pr E STEC PCR Stool E coli O157 PCR Stl Enterotoxigenic E PCR Stool EPEC (PCR) Stool EAEC (PCR) Stl E. histolytica PCR Stool Giardia Lamblia PCR Stl P. shigelloides PCR Stool Salmonella PCR Stool Sapovirus (PCR) Stl Shigella/EIEC PCR St Y.enterocolitica PCR Stool Vibrio (PCR) Stl Vibrio cholerae PCR Stl Norovirus GI/GII PCR 12/08/24 12/08/24 12/09/24 17:05 20:27 08:16 Absolute Neuts (auto) POC Glucose 135 H 146 H 112 Stl C. cayetanensis PCR Stool Rotavirus A PCR Stl Adenov F 40/41 PCR Stool Astrovirus (PCR) Stool Campylobacter PCR Stool Cryptosporidium PCR Stl Sh Tox Pr E STEC PCR Stool E coli O157 PCR Stl Enterotoxigenic E PCR Stool EPEC (PCR) Stool EAEC (PCR) Stl E. histolytica PCR Stool Giardia Lamblia PCR Stl P. shigelloides PCR Stool Salmonella PCR Stool Sapovirus (PCR) Stl Shigella/EIEC PCR St Y.enterocolitica PCR Stool Vibrio (PCR) Stl Vibrio cholerae PCR Stl Norovirus GI/GII PCR 12/09/24 12/09/24 12/09/24 12:37 16:21 17:12 Absolute Neuts (auto) POC Glucose 177 H 112 Stl C. cayetanensis PCR Pending Stool Rotavirus A PCR Pending Stl Adenov F 40/41 PCR Pending Stool Astrovirus (PCR) Pending Stool Campylobacter PCR Pending Stool Cryptosporidium PCR Pending Stl Sh Tox Pr E STEC PCR Pending Stool E coli O157 PCR Pending Stl Enterotoxigenic E PCR Pending Stool EPEC (PCR) Pending Stool EAEC (PCR) Pending Stl E. histolytica PCR Pending Stool Giardia Lamblia PCR Pending Stl P. shigelloides PCR Pending Stool Salmonella PCR Pending Stool Sapovirus (PCR) Pending Stl Shigella/EIEC PCR Pending St Y.enterocolitica PCR Pending Stool Vibrio (PCR) Pending Stl Vibrio cholerae PCR Pending Stl Norovirus GI/GII PCR Pending 12/09/24 12/10/24 20:48 07:45 Absolute Neuts (auto) POC Glucose 117 H 125 H Stl C. cayetanensis PCR Stool Rotavirus A PCR Stl Adenov F 40/41 PCR Stool Astrovirus (PCR) Stool Campylobacter PCR Stool Cryptosporidium PCR Stl Sh Tox Pr E STEC PCR Stool E coli O157 PCR Stl Enterotoxigenic E PCR Stool EPEC (PCR) Stool EAEC (PCR) Stl E. histolytica PCR Stool Giardia Lamblia PCR Stl P. shigelloides PCR Stool Salmonella PCR Stool Sapovirus (PCR) Stl Shigella/EIEC PCR St Y.enterocolitica PCR Stool Vibrio (PCR) Stl Vibrio cholerae PCR Stl Norovirus GI/GII PCR DS: Summary Hospital Course Hospital Course: Patient is a 59-year-old male with history of schizoaffective disorder, bipolar type, DM, essential hypertension HOCM, HLD, COPD JUDY (on 2L O2 q.h.s.), constipation with history of small-bowel obstruction, with hx of severe and aggressive decompensation, typically on both Clozaril and Latuda and on a [facility], who is a transferred from medical floor following treatment for JUHI/hypokalemia, prolonged QT due to poor fluid intake in the face of depression/SI. Patient has been off his psychiatric medications and remains depressed though SI seems to be clearing. He says he was very unhappy at his penitentiary, feeling stressed by several things including his roommate who has psychotic symptoms... He said that due to his depression, the penitentiary staff had a put away the scissors and knife because he was feeling unsafe. Currently denies SI. Denies AVH. Wants to get back on his medications. Formulation/clinical reasoning: Schizoaffective disorder with manic episodes and history of severe and aggressive decompensation went off medications. Currently QTC is WNL. That said, patient relies on antipsychotics (specifically Clozaril) in order to remain stable and safe. Patient agrees to restarting clozapine and Latuda at this time. Hospital course: On admission patient was depressed however was wanting to get back on his medications and agreed to clozapine titration. SI remained fully resolved and patient reported that AH was minimal. Patient's admission was largely unremarkable. He improved little by little and though mostly kept to himself and for but of the time was alone in his room, started to venture out into the milieu, sitting in the day room watching television with peers. SI remained fully resolved and AH remained minimal. Patient was eating and drinking well; sleeping well and without any medication side effects. Patient would sometimes talk more, other times be reticent but overall was appropriate when meeting together. Patient did have a bout of loose stool with a negative GI panel that eventually resolved on its own; he reported that he otherwise feels fine and that this often happens when he restarts his medication. Patient's Latuda was titrated back to his home dose of 60 mg and Clozaril was titrated back to 175 mg q.h.s.. QTC was monitored; it did fluctuate and at the end of admission was QTcB Int : 502 ms however review of chart shows that patient's QTC frequently fluctuates; this was discussed with patient who understands the risks and that it is due to Clozaril; he says this is normal for him and he accepts the risks, wanting to continue with Clozaril (patient has been on numerous medication trials over the years and is most stable on Clozaril; when he decompensates Peter can become extremely unsafe and lyric writer agrees that benefit outweighs potential risk of remaining on Clozaril). Patient's engineering group manager, Marshall Garcia came to visit patient on the unit and reports that patient is at baseline and ready to return home. Patient has been having some struggles with his penitentiary roommate however accepts the situation and says he will be okay with it. Patient remained in good behavioral and impulse control. He is at baseline and is returning to a supportive and structured environment that is staff 30/04. Patient of course remains vulnerable to decompensation however this is a chronic struggle for him that will not resolve with longer stay on inpatient unit. Patient is not in imminent risk for harm to self or others and appropriate to return to the community for treatment. Time spent discussing smoking cessation with patient: 3 to 10 minutes Status at Discharge Functional status at discharge: independent ambulation Overall status at discharge: patient is back to baseline Time Spent with Patient Time attestation: Total time managing care of this patient today __40__ minutes. Time spent: Greater than 30 minutes Specific discharge activities: Met with patient; discussed with team; prescriptions, charting Discharge Plan Discharge Anticipated Discharge Date/Time: 12/10/24 11:02 Patient Disposition: Home, Self-Care Discharge Diagnosis: Schizoaffective disorder, bipolar type Referrals: Freeman Cerna (psychiatry):[place] [facility]) [Other] - 01/01/25 (Scheduled follow-up psychiatric appointment for medication management.) Physician,Unknown J [Primary Care Provider] - (Because you declined to sign a release of information for your PCP, your records were not forwarded. If you would like them sent in future please call the hospital and ask for the medical records department. ) Discharge Medications: New tamsulosin 0.4 mg Capsule 0.4 mg PO BEDTIME 30 Days Qty: 30 0RF clozapine 100 mg tablet 100 mg PO BEDTIME 30 Days Qty: 30 0RF Rx Instructions: take with 50mg and 25mg tab clozapine 50 mg tablet 50 mg PO BEDTIME 30 Days Qty: 30 0RF Rx Instructions: take with 100mg and 25mg tab clozapine 25 mg tablet 25 mg PO BEDTIME 30 Days Qty: 30 0RF Rx Instructions: take with 50mg and 100mg tab lurasidone 60 mg tablet 60 mg PO DAILY@1800 30 Days Qty: 30 0RF Rx Instructions: must administer with food (at least 350 calories) trazodone 50 mg Tablet 50 mg PO BEDTIME PRN (Reason: Insomnia) 30 Days Qty: 30 0RF Continued aspirin 81 mg tablet,delayed release (DR/EC) 81 mg PO DAILY atorvastatin 20 mg tablet 20 mg PO BEDTIME omeprazole 20 mg capsule,delayed release(DR/EC) 40 mg PO BID@0630,1630 cholecalciferol (vitamin D3) 25 mcg (1,000 unit) tablet 25 mcg PO DAILY insulin glargine [Lantus Solostar U-100 Insulin] 100 unit/mL (3 mL) insulin pen 15 unit subcut BEDTIME Jardiance 10 mg tablet 10 mg PO DAILY alum-mag hydroxide-simeth 200-200-20 mg/5 mL Suspension 10 ml PO TID PRN (Reason: Indigestion) Rx Instructions: administer between meals and at bedtime metoprolol succinate 100 mg tablet extended release 24 hr 100 mg PO DAILY Protocol: Hold for SBP/HR < HOLD for SBP < : 90 HOLD for HR < : 60 polyethylene glycol 3350 17 gram powder in packet 17 g PO DAILY 30 Days Qty: 30 0RF Rx Instructions: hold for loose stool sennosides-docusate sodium [Senna Plus] 8.6-50 mg tablet 2 tab PO DAILY 30 Days Qty: 60 0RF Rx Instructions: hold for loose stool nicotine (polacrilex) 4 mg Lozenge 4 mg buccal Q2H PRN (Reason: Smoking Cessation) 30 Days Qty: 108 0RF albuterol sulfate 90 mcg/actuation HFA aerosol inhaler 2 puff inhalation Q6H PRN (Reason: Shortness Of Breath Or Wheezing) 30 Days Qty: 1 0RF Tradjenta 5 mg tablet 5 mg PO DAILY 30 Days Qty: 30 0RF (DME) lancets [OneTouch Delica Plus Lancet] 33 gauge misc See Rx Instructions .ROUTE .MEDSUPPLY Qty: 100 5RF Rx Instructions: Use as directed to check blood glucose twice daily. nitroglycerin 0.4 mg tablet, sublingual 0.4 mg SUBLINGUAL Q5M PRN (Reason: Chest Pain) Qty: 14 0RF Rx Instructions: do not exceed 3 doses per episode (DME) pen needle, diabetic [BD Erica 2nd Gen Pen Needle] 32 gauge x 5/32 needle See Rx Instructions .ROUTE .MEDSUPPLY Qty: 100 11RF Rx Instructions: As directed to administer lantus insulin once daily (DME) OneTouch Verio test strips Strip See Rx Instructions .ROUTE .MEDSUPPLY Qty: 100 5RF Rx Instructions: Use as directed to check blood glucose twice daily. (DME) blood-glucose meter [OneTouch Verio Flex meter] Misc See Rx Instructions .ROUTE .MEDSUPPLY Qty: 1 0RF Rx Instructions: Use as directed to check blood glucose twice daily for Type II diabetes mellitus. acetaminophen [Tylenol] 325 mg tablet 650 mg PO Q6H PRN (Reason: Pain (Scale Score 1-3)) Qty: 60 2RF testosterone 1 % (50 mg/5 gram) gel in packet 1 packet transdermal DAILY 30 Days Qty: 150 5RF Discontinued furosemide [Lasix] 40 mg tablet 40 mg PO DAILY PRN (Reason: edema, weight gain) 90 Days Qty: 90 0RF Discharge Orders: Discharge Order (Routine); Ordered 12/10/24 Ordered By: Geraldo Garcia Diet: diabetic diet if willing Activity on Discharge: As tolerated Stand Alone Forms: Patient Portal Discharge page, Community Support Print Language: Swazi Care Plan Goals: Maintain mood and safe behaviors Take medications as prescribed Practice coping skills Continue with outpatient providers and reach out to them as needed Health Concerns: Mood stability and behaviors Diabetes JUDY CHF CAD Plan of Treatment: Follow up with your PCP, psychiatric provider and other outpatient providers regarding above concerns Take medications as prescribed Assessment: Risk assessment at time of discharge:? Patient was interviewed prior to discharge and found to be fully oriented and without any SI or HI. Patient has improved insight and judgment and wants to continue treatment. Patient is not in imminent risk of harm to self or others and has a safety plan that includes presenting to the closest ER or calling 911 if feeling unsafe.? Patient has been observed closely by nursing and unit staff throughout admission; patient has not engaged in any behaviors that suggest dangerousness to self or others and has demonstrated appropriate behaviors and impulse control Discharge Date/Time: 12/10/24 12:39
[2024-12-10 12:16] LABS: Glucose, Whole Blood 176 mg/dL (60-115)
[2024-12-10 16:52] LABS: Adenovirus F 40/41 Not Detected (Not Detect.); Astrovirus Not Detected (Not Detect.); Campylobacter Not Detected (Not Detect.); Cryptosporidium Not Detected (Not Detect.); Cyclospora cayetanensis Not Detected (Not Detect.); E. coli EAEC Not Detected (Not Detect.); E. coli EPEC Not Detected (Not Detect.); E. coli ETEC Not Detected (Not Detect.); E. coli STEC Not Detected (Not Detect.); Entamoeba histolytica Not Detected (Not Detect.); Giardia lamblia Not Detected (Not Detect.); Plesiomonas shigelloides Not Detected (Not Detect.); Rotavirus A Not Detected (Not Detect.); Salmonella Not Detected (Not Detect.); Sapovirus Not Detected (Not Detect.); Shigella sp./EIEC Not Detected (Not Detect.); Vibrio Not Detected (Not Detect.); Vibrio Cholerae Not Detected (Not Detect.); Yersinia enterocolitica Not Detected (Not Detect.)
[2024-12-10 17:24] LABS: Norovirus GI/GII Detected (Not Detect.)
== END 2024-12-10 12:39 | disposition home or self-care (01) | DRG 885 ==
PROVIDERS: Clinical Nurse Specialist Psychiatric/Mental Health, Adult; Psychiatry & Neurology Psychiatry; Admitting Provider Psychiatry & Neurology Psychiatry; Visit Provider Psychiatry & Neurology Psychiatry
DX: F25.0 Schizoaffective disorder, bipolar type (principal); I42.1 Obstructive hypertrophic cardiomyopathy; R45.851 Suicidal ideations; I50.22 Chronic systolic (congestive) heart failure; I11.0 Hypertensive heart disease with heart failure; J44.9 Chronic obstructive pulmonary disease, unspecified; E78.5 Hyperlipidemia, unspecified; Z99.81 Dependence on supplemental oxygen; G47.33 Obstructive sleep apnea (adult) (pediatric); I25.10 Atherosclerotic heart disease of native coronary artery without angina pectoris; E11.9 Type 2 diabetes mellitus without complications; Z87.891 Personal history of nicotine dependence; Z79.4 Long term (current) use of insulin; Z79.82 Long term (current) use of aspirin; Z79.899 Other long term (current) 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
CPT/HCPCS: 36415; 80061; 82607; 82746; 82947; 83036; 83735; 84439; 84443; 85048; 87507; 93005

== ENCOUNTER 2024-11-26 13:34 | Outpatient (BNV) | payer MEDICARE, MEDICAID, SELFPAY | END 2024-12-04 09:00 | PROVIDERS: Admitting Provider Psychiatry & Neurology Psychiatry; Visit Provider Internal Medicine Cardiovascular Disease | DX: R94.31 Abnormal electrocardiogram [ECG] [EKG] (principal); Z13.6 Encounter for screening for cardiovascular disorders | CPT/HCPCS: 93010 ==

== ENCOUNTER 2024-11-26 13:34 | Outpatient (BNV) | payer MEDICARE, MEDICAID, SELFPAY | END 2024-12-09 16:37 | PROVIDERS: Admitting Provider Psychiatry & Neurology Psychiatry; Visit Provider Internal Medicine Cardiovascular Disease | DX: R94.31 Abnormal electrocardiogram [ECG] [EKG] (principal) | CPT/HCPCS: 93010 ==

== ENCOUNTER 2024-11-26 13:34 | Outpatient (BNV) | payer MEDICARE, MEDICAID, SELFPAY | END 2024-11-29 13:59 | PROVIDERS: Admitting Provider Psychiatry & Neurology Psychiatry; Visit Provider Internal Medicine | DX: I51.7 Cardiomegaly (principal) | CPT/HCPCS: 93010 ==

== ENCOUNTER → 2024-11-26 13:34 | Outpatient (BNV) | payer OTHER, SELFPAY | PROVIDERS: Admitting Provider Psychiatry & Neurology Psychiatry; Visit Provider Psychiatry & Neurology Psychiatry | DX: F25.0 Schizoaffective disorder, bipolar type (principal); I42.1 Obstructive hypertrophic cardiomyopathy; I50.22 Chronic systolic (congestive) heart failure; I25.118 Atherosclerotic heart disease of native coronary artery with other forms of angina pectoris | CPT/HCPCS: 99231 ==

== ENCOUNTER → 2024-11-26 13:34 | Outpatient (BNV) | payer OTHER, SELFPAY | PROVIDERS: Admitting Provider Psychiatry & Neurology Psychiatry; Visit Provider Psychiatry & Neurology Psychiatry | DX: F25.0 Schizoaffective disorder, bipolar type (principal); I42.1 Obstructive hypertrophic cardiomyopathy; I50.22 Chronic systolic (congestive) heart failure; I25.118 Atherosclerotic heart disease of native coronary artery with other forms of angina pectoris; E11.9 Type 2 diabetes mellitus without complications; Z79.4 Long term (current) use of insulin; G47.34 Idiopathic sleep related nonobstructive alveolar hypoventilation | CPT/HCPCS: 99222; 99232 ==

== ENCOUNTER 2024-12-24 11:14 | Outpatient (AMB) | payer MEDICARE, MEDICAID, SELFPAY ==
[2024-12-24 11:42] VITALS: BMI 35.6
--- NOTE | 2024-12-24 11:42 | A.OFFVIS_ITS ---
VS Expanded 12/24/24 11:42 12/24/24 11:55 Height 5 ft 8 in 5 ft 8 in Weight 234 lb 2.095 oz 234 lb BMI 35.6 35.6 Intake Visit Reasons: T2DM w hyperglycemia Allergies lithium [Nichols] Allergy (Severe, Verified 11/20/24 09:27) Toxicity thiothixene Allergy (Severe, Verified 11/20/24 09:27) Swelling amoxicillin Allergy (Mild, Verified 11/20/24 09:27) Nose Bleed benztropine Allergy (Unknown, Verified 11/20/24 09:27) benztropine mesylate- unknown gabapentin [From NEURONTIN] Allergy (Unknown, Verified 11/20/24 09:27) Unknown fluphenazine [From Prolixin] Allergy (Verified 11/20/24 09:) Unknown barium sulfate [BARIUM SULFATE] Adverse Reaction (Intermediate, Verified 11/20/24 09:27) Nausea and Vomiting haloperidol Adverse Reaction (Intermediate, Verified 11/20/24 09:27) Muscle tension in legs diphenhydramine [From Benadryl] Adverse Reaction (Unknown, Verified 11/20/24 09:27) urinary retention Nutrition Presentation Details: Pt presents for MNT for T2DM BS Monitoring Most Recent Diabetes Results: Cholesterol 171 mg/dL (<200) 11/27/24 HDL Cholesterol 32 mg/dL (>40) L 11/27/24 Triglycerides 246 mg/dL (<150) H 11/27/24 OTA-Dzgrcyl-Ft.Jeor Equation Height: 5 ft 8 in Weight: 234 lb Resting Metabolic Rate: 1849.64 Calculated Activity Level: Mild Activity Calories Needed to Maintain Weight: 2543.26 Diagnosis Nutrition problem #1: overweight/obesity As related to (etiology) #1: excess energy intake [facility] Medical History (Updated 12/18/24 @ 00:02 by Background Mi) Nocturnal hypoxemia Schizoaffective disorder, bipolar type Diabetic neuropathy Type II diabetes with group home use of insulin BPH (benign prostatic hyperplasia) Diabetes mellitus Essential hypertension HOCM (hypertrophic obstructive cardiomyopathy) Coronary artery disease Osteoarthritis GERD without esophagitis Vitamin D deficiency Congestive heart failure COVID-19 Thought disorder Constipation COPD (chronic obstructive pulmonary disease) Smoker Diabetes mellitus Obesity (BMI 30-39.9) Pure hypercholesterolemia Prolonged QT interval Aggression Hypertension CHF (congestive heart failure) Cardiac arrhythmia Myocardial infarction Surgical History History of ankle surgery History of intestinal surgery History of transurethral resection of prostate Family History Father Medical history unknown Mother Medical history unknown Sister Alive and well Social History Household Members: Other Household Members Other:: [facility] residents Housing: House Housing Other:: [facility] Do you presently have visiting nurse or other home services: Yes Unable to assess alcohol history related to: Unknown Alcohol intake: current Alcohol intake frequency: a few times a month Alcohol type: beer Comment: 1:[address] Patient Tobacco Use Status: Former Tobacco user Tobacco use type: Cigarette Cigarette Packs Per Day: 0.5 Cigarettes Per Day: 10 Years Smoked: Many e-Cigarette/Vaping Use: Currently Using Second Hand Smoke Exposure: Yes Substance Use Type: Unknown Advance Directives Date on File: 01/14/24 service: Yes (attended [employer] 1980) Current occupational status: disabled Sexual orientation: Straight/Heterosexual Cognitive needs: Yes Hearing needs: No Vision needs: Yes Assessment & Plan Assessment & Plan (1) 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 diabetes with ferry terminal agent 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 of 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: Code(s): E11.9 - Type 2 diabetes mellitus without complications; Z79.4 - terminal block assembler (current) use of insulin Category: Medical Plan: Wt: 106 Kg ( 12/30 ) Est kcal needs as per MSJ: (40% carb, 30% protein/fat) Est fluid needs as per 25-30 ml/d: 3200 Est prot per day as per 1 g/kg bw: 106 Recommend fiber intake : 8-10 g per day and gradually increase to 25-28 g per day for women and 35-38 g for men or as tolerated Recommend sodium intake per day : less than 1500 mg less than 2000 mg Educated patient on: ( R = reviewed V = verbalizes understanding N/R = needs review N/A = not applicable * Food sources of carbohydrate, adequate serving sizes and its role in various health conditions: R V N/R * Differences between complex carbohydrates a simple carbohydrates, role of fiber in diet: R V N/R * Lean protein sources of foods: R V NR * Differences between types of fats and role in diet (mono on saturated fat fatty acids, saturated fatty acids, trans fats): R V N/R * Food sources of sodium in salt and healthy modifications for heart health in kidney health: R V R/V * Vitamins and minerals: R V N/R * Healthy plate method concept: R V N/R * Physical activity: Benefits a precaution: R V N/R * Hypoglycemia protocol (rule of 15): R V N/R * Dietary prevention of Hyperglycemia: R V R/V Patient Instructions: Follow healthy plate method, 1 cup of cooked starches and 1 cup of starchy vegetables along with non starchy vegetables, 4- 5 oz of protein , 1 cup of lactose free milk Coding Level of Care Code Nutr Indiv Intake (55707) Diagnoses Type II diabetes with group home use of insulin E11.9; Z79.4 Time Spent (min) 30
[2024-12-24 11:55] VITALS: BMI 35.6
--- OUTSIDE RECORDS SUMMARY | 2024-12-24 13:43 | XMS_ITS | Encounter Summary ---
Author Organization [facility] Address [address] [place] [address] Care Team Providers Care Maintenance And Utilities Supervisor Name Role Phone Regan Hogue MD Primary Care Provider Encounter Details Date Type Department Care Team (Late st Contact Info) Description 10/07/2024 Lab Requisition [facility] - Main Lab [address] [facility] [place] [address] Freeman Cerna MD [address] Other retirement (current) 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 Social History Tobacco Use [...] AM EDT Consult Orthopedic Surgery - [address] [phone] Juventino Schneider DPM [address] [address] documented as of this encounter Procedures Procedure Name Priority Date/Time Associated Diagnosis Comments CBC WITH AUTO DIFFERENTIAL Routine 10/07/2024 7:40 AM EST Other ferry terminal agent (current) 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 CBC AND DIFFERENTIAL Routine 10/07/2024 7:40 AM EST Other retirement (current) 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 documented in this encounter Results * (ABNORMAL) CBC auto differential (10/07/2024 7:40 AM EST) [facility] WBC 8.0 4.8 - 10.8 K/mcL LAB HEMETOLOGY METHOD 10/07/2024 12:19 PM [facility] LAB RBC 4.20(L) 4.50 - 5.50 M/mcL LAB HEMETOLOGY METHOD 10/07/2024 12:19 PM [facility] LAB Hemoglobin 11.1(L) 13.5 - 17.5 g/dL LAB HEMETOLOGY METHOD 10/07/2024 12:19 PM [facility] LAB Hematocrit 36.7(L) 42.0 - 54.0 % LAB HEMETOLOGY METHOD 10/07/2024 12:19 PM [facility] LAB MCV 87.0 79.0 - 98.0 FL LAB HEMETOLOGY METHOD 10/07/2024 12:19 PM [facility] LAB MCH 26.3(L) 27.0 - 32.0 pcg LAB HEMETOLOGY METHOD 10/07/2024 12:19 PM [facility] LAB MCHC 30.2(L) 32.0 - 37.0 g/dL LAB HEMETOLOGY METHOD 10/07/2024 12:19 PM [facility] LAB RDW 15.3(H) 11.0 - 15.0 % LAB HEMETOLOGY METHOD 10/07/2024 12:19 PM [facility] LAB Platelets 160 130 - 400 K/mcL LAB HEMETOLOGY METHOD 10/07/2024 12:19 PM [facility] LAB MPV 12.9(H) 7.0 - 11.0 FL LAB HEMETOLOGY METHOD 10/07/2024 12:19 PM [facility] LAB NRBC 0.0 <1.0 % LAB HEMETOLOGY METHOD 10/07/2024 12:19 PM [facility] LAB NRBC Absolute 0.00 <0.10 K/[facility] LAB HEMETOLOGY METHOD 10/07/2024 12:19 PM [facility] LAB Neutrophils Relative 72.5 % LAB HEMETOLOGY METHOD 10/07/2024 12:19 PM [facility] LAB Lymphocytes Relative 16.9 % LAB HEMETOLOGY METHOD 10/07/2024 12:19 PM [facility] LAB Monocytes Relative 7.4 % LAB HEMETOLOGY METHOD 10/07/2024 12:19 PM [facility] LAB Eosinophils Relative 2.1 % LAB HEMETOLOGY METHOD 10/07/2024 12:19 PM [facility] LAB Basophils Relative 0.6 % LAB HEMETOLOGY METHOD 10/07/2024 12:19 PM [facility] LAB Immature Granulocytes Relative 0.5 % LAB HEMETOLOGY METHOD 10/07/2024 12:19 PM [facility] LAB Neutrophils Absolute 5.78 1.50 - 7.00 K/mcL LAB HEMETOLOGY METHOD 10/07/2024 12:19 PM [facility] LAB Lymphocytes Absolute 1.35 1.00 - 5.00 K/mcL LAB HEMETOLOGY METHOD 10/07/2024 12:19 PM [facility] LAB Monocytes Absolute 0.59 0.20 - 1.00 K/mcL LAB HEMETOLOGY METHOD 10/07/2024 12:19 PM [facility] LAB Eosinophils Absolute 0.17 0.00 - 0.50 K/mcL LAB HEMETOLOGY METHOD 10/07/2024 12:19 PM [facility] LAB Basophils Absolute 0.05 0.00 - 0.20 K/mcL LAB HEMETOLOGY METHOD 10/07/2024 12:19 PM [facility] LAB Immature Granulocytes Absolute 0.04(H) 0.00 - 0.03 K/mcL LAB HEMETOLOGY METHOD 10/07/2024 12:19 PM [facility] LAB Blood Venous blood specimen / Unknown Venipuncture / Unknown 10/07/2024 7:40 AM EST 10/07/2024 11:28 AM EST us Freeman Cerna MD LAB BLOOD ORDERABLES Final Resul t [facility] ([facility] LAB [address] [place] [address], documented in this encounter Visit Diagnoses Diagnosis Other retirement (current) 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 documented in this encounter Care Teams Maintenance And Utilities Supervisor Relationship Specialty Start Date End Date Regan Hogue MD [address] [place] [address] Dr [address] [place] PCP - General Internal Medicine 11/12/24 documented as of this encounter
--- OUTSIDE RECORDS SUMMARY | 2024-12-24 13:43 | XMS_ITS | Clinical Summary ---
Author Organization [address] [facility] Address [address] [place] [address] Phone Care Team Providers Care Moss Bleacher Name Role Phone Regan Hogue MD Primary Care Provider Encounters Date Type Department Care Team Description 12/02/2024 Lab Requisition [facility] Lab [address] [place] [phone] Freeman Cerna MD Other information director (current) 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 11/04/2024 Lab Requisition [facility] Lab [address] [place] [phone] Freeman Cerna MD Other information director (current) 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 10/07/2024 Lab Requisition [facility] Lab [address] [place] [phone] Freeman Cerna MD Other mcfp (current) 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 from Last 3 Months [...] 9:45 AM EDT Consult Orthopedic Surgery - [place] [address] [phone] Juventino Schneider, DPSaima [address] [address] Health Maintenance Due Date Last Done Comments [...] DIFFERENTIAL Routine 11/04/2024 6:33 AM EST Other mcfp (current) 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 CBC AND DIFFERENTIAL Routine 11/04/2024 6:33 AM EST Other mcfp (current) 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 CBC WITH AUTO DIFFERENTIAL Routine 10/07/2024 7:40 AM EST Other information director (current) 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 CBC AND DIFFERENTIAL Routine 10/07/2024 7:40 AM EST Other mcfp (current) 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 from Last 3 Months Results * (ABNORMAL) CBC auto differential (11/04/2024 6:33 AM EST) Only the most recent of2 resultswithin the time period is included. WBC 7.7 4.8 - 10.8 K/mcL LAB HEMETOLOGY METHOD 11/04/2024 10:21 AM [facility] LAB RBC 3.90(L) 4.50 - 5.50 M/mcL LAB HEMETOLOGY METHOD 11/04/2024 10:21 AM [facility] LAB Hemoglobin 10.4(L) 13.5 - 17.5 g/dL LAB HEMETOLOGY METHOD 11/04/2024 10:21 AM [facility] LAB Hematocrit 34.8(L) 42.0 - 54.0 % LAB HEMETOLOGY METHOD 11/04/2024 10:21 AM [facility] LAB MCV 88.8 79.0 - 98.0 FL LAB HEMETOLOGY METHOD 11/04/2024 10:21 AM [facility] LAB MCH 26.5(L) 27.0 - 32.0 pcg LAB HEMETOLOGY METHOD 11/04/2024 10:21 AM [facility] LAB MCHC 29.9(L) 32.0 - 37.0 g/dL LAB HEMETOLOGY METHOD 11/04/2024 10:21 AM [facility] LAB RDW 16.6(H) 11.0 - 15.0 % LAB HEMETOLOGY METHOD 11/04/2024 10:21 AM [facility] LAB Platelets 131 130 - 400 K/mcL LAB HEMETOLOGY METHOD 11/04/2024 10:21 AM [facility] LAB MPV 13.1(H) 7.0 - 11.0 FL LAB HEMETOLOGY METHOD 11/04/2024 10:21 AM [facility] LAB NRBC 0.0 <1.0 % LAB HEMETOLOGY METHOD 11/04/2024 10:21 AM [facility] LAB NRBC Absolute 0.00 <0.10 K/mcL LAB HEMETOLOGY METHOD 11/04/2024 10:21 AM [facility] LAB Neutrophils Relative 70.9 % LAB HEMETOLOGY METHOD 11/04/2024 10:21 AM [facility] LAB Lymphocytes Relative 17.2 % LAB HEMETOLOGY METHOD 11/04/2024 10:21 AM [facility] LAB Monocytes Relative 9.1 % LAB HEMETOLOGY METHOD 11/04/2024 10:21 AM [facility] LAB Eosinophils Relative 1.8 % LAB HEMETOLOGY METHOD 11/04/2024 10:21 AM [facility] LAB Basophils Relative 0.7 % LAB HEMETOLOGY METHOD 11/04/2024 10:21 AM [facility] LAB Immature Granulocytes Relative 0.3 % LAB HEMETOLOGY METHOD 11/04/2024 10:21 AM [facility] LAB Neutrophils Absolute 5.46 1.50 - 7.00 K/mcL LAB HEMETOLOGY METHOD 11/04/2024 10:21 AM [facility] LAB Lymphocytes Absolute 1.32 1.00 - 5.00 K/mcL LAB HEMETOLOGY METHOD 11/04/2024 10:21 AM [facility] LAB Monocytes Absolute 0.70 0.20 - 1.00 K/mcL LAB HEMETOLOGY METHOD 11/04/2024 10:[address] [facility] Eosinophils Absolute 0.14 0.00 - 0.50 K/mcL LAB HEMETOLOGY METHOD 11/04/2024 10:[address] [facility] Basophils Absolute 0.05 0.00 - 0.20 K/mcL LAB HEMETOLOGY METHOD 11/04/2024 10:[address] [facility] LAB Immature Granulocytes Absolute 0.02 0.00 - 0.03 K/mcL LAB HEMETOLOGY METHOD 11/04/2024 10:21 AM EST [facility] Blood Venous blood specimen / Unknown Venipuncture / Unknown 11/04/2024 6:33 AM EST 11/04/2024 8:32 AM EST us Freeman Cerna MD LAB BLOOD ORDERABLES Final Resul t [facility] LAB [address] [place] [address], from Last 3 Months Insurance MEDICAID - [place] MEDICARE Care Teams Moss Bleacher Relationship Specialty Start Date End Date Regan Hogue MD [address] [place] [address] Dr [address] [place] PCP - General Internal Medicine 11/12/24
--- OUTSIDE RECORDS SUMMARY | 2024-12-24 13:43 | XMS_ITS | Encounter Summary ---
Author Organization [facility] Address [address] [address] Phone Care Team Providers Care Dropper Tank Storage Name Role Phone Regan Hogue MD Primary Care Provider [phone]- [phone] Reason for Visit * Reason Onset Date Comments No Show 12/18/2024 No show. No labs Encounter Details Date Type Department Care Team (Latest Contact Info) Description 12/18/2024 Documentation Only [facility] [address] [address] Igor Mane MD [address] [phone] No Show (No show. No labs) Social History Tobacco Use Types Packs/Day Years Used Date Smoking Tobacco: Every Day Cigarettes 0.5 41.2 Started: 1984 Smokeless Tobacco: Never Comments:Smoking History Inf o:Every day Alcohol Use Standard Drinks/Week Comments Yes 0 (1 standard drink = 0.6 oz pure alcohol) Alcoholic Drinks/day: Occasional social drink Sex and Gender Information Value Date Recorded Sex Assigned at Not on file Legal Sex Male 5:13 PM EST Gender Identity Not on file Sexual Orientation Not on file documented as of this encounter Plan of Treatment Not on file documented as of this encounter Visit Diagnoses Not on filedocumented in this encounter Care Teams Dropper Tank Storage Relationship Specialty Start Date End Date Regan Hogue MD [address] [place] [address] PCP - General Internal Medicine 12/20/23 documented as of this encounter
--- OUTSIDE RECORDS SUMMARY | 2024-12-24 13:43 | XMS_ITS | Encounter Summary ---
Author Organization [facility] Address [address] [place] [address] Care Team Providers Care Rent Collector Name Role Phone Regan Hogue MD Primary Care Provider Encounter Details Date Type Department Care Team (Late st Contact Info) Description 09/09/2024 Lab Requisition [facility] - Main Lab 299 [facility] [address] Freeman Cerna MD [address] Other fci (current) 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 Social History Tobacco Use [...] 9:45 AM EDT Consult Orthopedic Surgery - [address] [phone] Juventino Schneider DPM [address] [address] documented as of this encounter Procedures Procedure Name Priority Date/Time Associated Diagnosis Comments CBC WITH AUTO DIFFERENTIAL Routine 09/09/2024 6:39 AM EST 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 CBC AND DIFFERENTIAL Routine 09/09/2024 6:39 AM EST Other fci (current) 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 documented in this encounter Results * (ABNORMAL) CBC auto differential (09/09/2024 6:39 AM EST) [facility] WBC 7.0 4.8 - 10.8 K/mcL LAB HEMETOLOGY METHOD 09/09/2024 10:01 AM [facility] LAB RBC 4.20(L) 4.50 - 5.50 M/mcL LAB HEMETOLOGY METHOD 09/09/2024 10:01 AM [facility] LAB Hemoglobin 11.2(L) 13.5 - 17.5 g/dL LAB HEMETOLOGY METHOD 09/09/2024 10:01 AM [facility] LAB Hematocrit 37.2(L) 42.0 - 54.0 % LAB HEMETOLOGY METHOD 09/09/2024 10:01 AM [facility] LAB MCV 88.2 79.0 - 98.0 FL LAB HEMETOLOGY METHOD 09/09/2024 10:01 AM [facility] LAB MCH 26.5(L) 27.0 - 32.0 pcg LAB HEMETOLOGY METHOD 09/09/2024 10:01 AM [facility] LAB MCHC 30.1(L) 32.0 - 37.0 g/dL LAB HEMETOLOGY METHOD 09/09/2024 10:01 AM [facility] LAB RDW 15.7(H) 11.0 - 15.0 % LAB HEMETOLOGY METHOD 09/09/2024 10:01 AM [facility] LAB Platelets 147 130 - 400 K/mcL LAB HEMETOLOGY METHOD 09/09/2024 10:01 AM [facility] LAB MPV 12.8(H) 7.0 - 11.0 FL LAB HEMETOLOGY METHOD 09/09/2024 10:01 AM [facility] LAB NRBC 0.0 <1.0 % LAB HEMETOLOGY METHOD 09/09/2024 10:01 AM [facility] LAB NRBC Absolute 0.00 <0.10 K/mcL LAB HEMETOLOGY METHOD 09/09/2024 10:01 AM [facility] LAB Neutrophils Relative 72.6 % LAB HEMETOLOGY METHOD 09/09/2024 10:01 AM [facility] LAB Lymphocytes Relative 15.3 % LAB HEMETOLOGY METHOD 09/09/2024 10:01 AM [facility] LAB Monocytes Relative 8.9 % LAB HEMETOLOGY METHOD 09/09/2024 10:01 AM [facility] LAB Eosinophils Relative 2.0 % LAB HEMETOLOGY METHOD 09/09/2024 10:01 AM [facility] LAB Basophils Relative 0.6 % LAB HEMETOLOGY METHOD 09/09/2024 10:01 AM [facility] LAB Immature Granulocytes Relative 0.6 % LAB HEMETOLOGY METHOD 09/09/2024 10:01 AM [facility] LAB Neutrophils Absolute 5.08 1.50 - 7.00 K/mcL LAB HEMETOLOGY METHOD 09/09/2024 10:01 AM [facility] LAB Lymphocytes Absolute 1.07 1.00 - 5.00 K/mcL LAB HEMETOLOGY METHOD 09/09/2024 10:01 AM [facility] LAB Monocytes Absolute 0.62 0.20 - 1.00 K/mcL LAB HEMETOLOGY METHOD 09/09/2024 10:01 AM [facility] LAB Eosinophils Absolute 0.14 0.00 - 0.50 K/mcL LAB HEMETOLOGY METHOD 09/09/2024 10:01 AM [facility] LAB Basophils Absolute 0.04 0.00 - 0.20 K/mcL LAB HEMETOLOGY METHOD 09/09/2024 10:01 AM [facility] LAB Immature Granulocytes Absolute 0.04(H) 0.00 - 0.03 K/mcL LAB HEMETOLOGY METHOD 09/09/2024 10:01 AM [facility] LAB Blood Venous blood specimen / Unknown Venipuncture / Unknown 09/09/2024 6:39 AM EST 09/09/2024 9:46 AM EST us Freeman Cerna MD LAB BLOOD ORDERABLES Final Resul t [facility] ([facility]) [facility] LAB [address] [place] [address], documented in this encounter Visit Diagnoses Diagnosis Other fci (current) 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 documented in this encounter Care Teams Rent Collector Relationship Specialty Start Date End Date Regan Hogue MD [address] [place] [address] [address] [place] PCP - General Internal Medicine 11/12/24 documented as of this encounter
--- OUTSIDE RECORDS SUMMARY | 2024-12-24 13:43 | XMS_ITS | Encounter Summary ---
Author Organization [facility] Address [address] [place] [address] Care Team Providers Care Special Services Supervisor Name Role Phone Regan Hogue MD Primary Care Provider [phone] Encounter Details Date Type Department Care Team (Late st Contact Info) Description 11/04/2024 Lab Requisition [facility] - Main Lab [address] [facility] [place] [address] Freeman Cerna MD [address] Other detention (current) 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 Social History Tobacco Use [...] 9:45 AM EDT Consult Orthopedic Surgery - [address] [phone] Juventino Schneider DPM [address] [address] documented as of this encounter Procedures Procedure Name Priority Date/Time Associated Diagnosis Comments CBC WITH AUTO DIFFERENTIAL Routine 11/04/2024 6:33 AM EST Other terminal system operator (current) 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 CBC AND DIFFERENTIAL Routine 11/04/2024 6:33 AM EST Other detention (current) 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 documented in this encounter Results * (ABNORMAL) CBC auto differential (11/04/2024 6:33 AM EST) [facility] WBC 7.7 4.8 - 10.8 K/mcL LAB HEMETOLOGY METHOD 11/04/2024 10:21 AM [facility] LAB RBC 3.90(L) 4.50 - 5.50 M/mcL LAB HEMETOLOGY METHOD 11/04/2024 10:21 AM [facility] LAB Hemoglobin 10.4(L) 13.5 - 17.5 g/dL LAB HEMETOLOGY METHOD 11/04/2024 10:21 AM [facility] LAB Hematocrit 34.8(L) 42.0 - 54.0 % LAB HEMETOLOGY METHOD 11/04/2024 10:21 AM [facility] LAB MCV 88.8 79.0 - 98.0 FL LAB HEMETOLOGY METHOD 11/04/2024 10:21 AM [facility] LAB MCH 26.5(L) 27.0 - 32.0 pcg LAB HEMETOLOGY METHOD 11/04/2024 10:21 AM [facility] LAB MCHC 29.9(L) 32.0 - 37.0 g/dL LAB HEMETOLOGY METHOD 11/04/2024 10:21 AM [facility] LAB RDW 16.6(H) 11.0 - 15.0 % LAB HEMETOLOGY METHOD 11/04/2024 10:21 AM [facility] LAB Platelets 131 130 - 400 K/mcL LAB HEMETOLOGY METHOD 11/04/2024 10:21 AM [facility] LAB MPV 13.1(H) 7.0 - 11.0 FL LAB HEMETOLOGY METHOD 11/04/2024 10:21 AM [facility] LAB NRBC 0.0 <1.0 % LAB HEMETOLOGY METHOD 11/04/2024 10:21 AM [facility] LAB NRBC Absolute 0.00 <0.10 K/mcL LAB HEMETOLOGY METHOD 11/04/2024 10:21 AM [facility] LAB Neutrophils Relative 70.9 % LAB HEMETOLOGY METHOD 11/04/2024 10:21 AM [facility] LAB Lymphocytes Relative 17.2 % LAB HEMETOLOGY METHOD 11/04/2024 10:21 AM [facility] LAB Monocytes Relative 9.1 % LAB HEMETOLOGY METHOD 11/04/2024 10:21 AM [facility] LAB Eosinophils Relative 1.8 % LAB HEMETOLOGY METHOD 11/04/2024 10:21 AM [facility] LAB Basophils Relative 0.7 % LAB HEMETOLOGY METHOD 11/04/2024 10:21 AM [facility] LAB Immature Granulocytes Relative 0.3 % LAB HEMETOLOGY METHOD 11/04/2024 10:21 AM [facility] LAB Neutrophils Absolute 5.46 1.50 - 7.00 K/mcL LAB HEMETOLOGY METHOD 11/04/2024 10:21 AM [facility] LAB Lymphocytes Absolute 1.32 1.00 - 5.00 K/mcL LAB HEMETOLOGY METHOD 11/04/2024 10:21 AM [facility] LAB Monocytes Absolute 0.70 0.20 - 1.00 K/mcL LAB HEMETOLOGY METHOD 11/04/2024 10:21 AM [facility] LAB Eosinophils Absolute 0.14 0.00 - 0.50 K/mcL LAB HEMETOLOGY METHOD 11/04/2024 10:21 AM [facility] LAB Basophils Absolute 0.05 0.00 - 0.20 K/mcL LAB HEMETOLOGY METHOD 11/04/2024 10:21 AM [facility] LAB Immature Granulocytes Absolute 0.02 0.00 - 0.03 K/mcL LAB HEMETOLOGY METHOD 11/04/2024 10:21 AM [facility] LAB Blood Venous blood specimen / Unknown Venipuncture / Unknown 11/04/2024 6:33 AM EST 11/04/2024 8:32 AM EST us Freeman Cerna MD LAB BLOOD ORDERABLES Final Resul t [facility]) [facility] LAB [address] [place] [address], documented in this encounter Visit Diagnoses Diagnosis Other detention (current) 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 documented in this encounter Care Teams Special Services Supervisor Relationship Specialty Start Date End Date Regan Hogue MD [address] [place] [address] Dr [address] [place] PCP - General Internal Medicine 11/12/24 documented as of this encounter
--- OUTSIDE RECORDS SUMMARY | 2024-12-24 13:43 | XMS_ITS | Encounter Summary ---
Author Organization [facility] Address [address] [place] [address] Care Team Providers Care Licensed Practical Vocational Nurse Name Role Phone Regan Hogue MD Primary Care Provider Encounter Details Date Type Department Care Team (Late st Contact Info) Description 12/02/2024 Lab Requisition [facility] - Main Lab 299 [facility] [place] [address] Freeman Cerna MD [address] Other half-way (current) 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 Social History Tobacco Use [...] 9:45 AM EDT Consult Orthopedic Surgery - [place] [address] [phone] Juventino Schneider DPM [address] [address] documented as of this encounter Visit Diagnoses Diagnosis Other half-way (current) 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 documented in this encounter Care Teams Licensed Practical Vocational Nurse Relationship Specialty Start Date End Date Regan Hogue MD [address] [place] [address] PCP - General Internal Medicine 11/12/24 documented as of this encounter
--- OUTSIDE RECORDS SUMMARY | 2024-12-24 13:43 | XMS_ITS | Clinical Summary ---
Author Organization 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 No labs) from Last 3 Months Family History Relation Status Comments Father Mother Social History Tobacco Use Types Packs/Day Years Used Date Smoking Tobacco: Every Day Cigarettes 0.5 41.2 Started: 1984 Smokeless Tobacco: Never Tobacco Cessation:Ready [...] 12/20/2023 8:21 AM EDT Plan of Treatment Health Maintenance Due Date Last Done Comments Pneumococcal Vaccine: Pediat rics (0 to 5 Years) and At-Risk Patients (6 to 64 Years) (1 of 2 - PCV) 01/11/1970 Colorectal Cancer Screening: Annual FOBT 01/11/2013 Colorectal Cancer Screening: Colonoscopy 01/11/2013 Colorectal Cancer Screening: Sigmoidoscopy 01/11/2013 Influenza Vaccine (#1) 2024 Hepatitis B Vaccine Aged Out No longe r eligible based on patient's age to complete this topic Care Teams Map Colorer Relationship Specialty Start Date End Date Regan Hogue MD [address] [place] [address] PCP - General Internal Medicine 12/20/23
--- OUTSIDE RECORDS SUMMARY | 2024-12-24 13:43 | XMS_ITS | Encounter Summary ---
Author Organization [facility] Address [address] [place] [address] Care Team Providers Care Audio Visual Project Manager Name Role Phone Regan Hogue MD Primary Care Provider Encounter Details Date Type Department Care Team (Late st Contact Info) Description 08/12/2024 Lab Requisition [facility] - Main Lab [address] [facility] [place] [phone] Freeman Cerna MD [address] Other correction (current) 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 Social History Tobacco Use [...] 9:45 AM EDT Consult Orthopedic Surgery - [place] [id number] [phone] Juventino Schneider DPM [address] [address] documented as of this encounter Procedures Procedure Name Priority Date/Time Associated Diagnosis Comments TRAVEL PHLEBOTOMY FEE Routine 08/12/2024 9:00 AM EST Other correction (current) 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 CBC WITH AUTO DIFFERENTIAL Routine 08/12/2024 9:00 AM EST Other correction (current) 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 CBC AND DIFFERENTIAL Routine 08/12/2024 9:00 AM EST Other truck terminal manager (current) 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 documented in this encounter Results * (ABNORMAL) CBC auto differential (08/12/2024 9:00 AM EST) [facility] WBC 6.5 4.8 - 10.8 K/mcL LAB HEMETOLOGY METHOD 08/12/2024 11:44 AM [facility] LAB RBC 4.30(L) 4.50 - 5.50 M/mcL LAB HEMETOLOGY METHOD 08/12/2024 11:44 AM [facility] LAB Hemoglobin 11.6(L) 13.5 - 17.5 g/dL LAB HEMETOLOGY METHOD 08/12/2024 11:44 AM [facility] LAB Hematocrit 37.1(L) 42.0 - 54.0 % LAB HEMETOLOGY METHOD 08/12/2024 11:44 AM [facility] LAB MCV 86.7 79.0 - 98.0 FL LAB HEMETOLOGY METHOD 08/12/2024 11:44 AM [facility] LAB MCH 27.1 27.0 - 32.0 pcg LAB HEMETOLOGY METHOD 08/12/2024 11:44 AM [facility] LAB MCHC 31.3(L) 32.0 - 37.0 g/dL LAB HEMETOLOGY METHOD 08/12/2024 11:44 AM [facility] LAB RDW 15.7(H) 11.0 - 15.0 % LAB HEMETOLOGY METHOD 08/12/2024 11:44 AM [facility] LAB Platelets 121(L) 130 - 400 K/mcL LAB HEMETOLOGY METHOD 08/12/2024 11:44 AM [facility] LAB MPV 12.6(H) 7.0 - 11.0 FL LAB HEMETOLOGY METHOD 08/12/2024 11:44 AM [facility] LAB NRBC 0.0 <1.0 % LAB HEMETOLOGY METHOD 08/12/2024 11:44 AM [facility] LAB NRBC Absolute 0.00 <0.10 K/mcL LAB HEMETOLOGY METHOD 08/12/2024 11:44 AM [facility] LAB Neutrophils Relative 74.8 % LAB HEMETOLOGY METHOD 08/12/2024 11:44 AM [facility] LAB Lymphocytes Relative 13.3 % LAB HEMETOLOGY METHOD 08/12/2024 11:44 AM [facility] LAB Monocytes Relative 9.4 % LAB HEMETOLOGY METHOD 08/12/2024 11:44 AM [facility] LAB Eosinophils Relative 1.1 % LAB HEMETOLOGY METHOD 08/12/2024 11:44 AM [facility] LAB Basophils Relative 0.6 % LAB HEMETOLOGY METHOD 08/12/2024 11:44 AM [facility] LAB Immature Granulocytes Relative 0.8 % LAB HEMETOLOGY METHOD 08/12/2024 11:44 AM [facility] LAB Neutrophils Absolute 4.86 1.50 - 7.00 K/mcL LAB HEMETOLOGY METHOD 08/12/2024 11:44 AM [facility] LAB Lymphocytes Absolute 0.86(L) 1.00 - 5.00 K/mcL LAB HEMETOLOGY METHOD 08/12/2024 11:44 AM [facility] LAB Monocytes Absolute 0.61 0.20 - 1.00 K/mcL LAB HEMETOLOGY METHOD 08/12/2024 11:44 AM [facility] LAB Eosinophils Absolute 0.07 0.00 - 0.50 K/mcL LAB HEMETOLOGY METHOD 08/12/2024 11:44 AM [facility] LAB Basophils Absolute 0.04 0.00 - 0.20 K/mcL LAB HEMETOLOGY METHOD 08/12/2024 11:44 AM [facility] LAB Immature Granulocytes Absolute 0.05(H) 0.00 - 0.03 K/mcL LAB HEMETOLOGY METHOD 08/12/2024 11:44 AM EST [facility] Blood Venous blood specimen / Unknown Venipuncture / Unknown 08/12/2024 9:00 AM EST 08/12/2024 10:29 AM EST us Freeman Cerna MD LAB BLOOD ORDERABLES Final Resul t Performing Organization Address City/[facility]/ZIP Co de Phone Number [facility] [address] [place] [address], [place] [phone] * Travel phlebotomy fee (08/12/2024 9:00 AM EST) [facility] TRAVEL PHLEBOTOMY FEE Completed 08/12/2024 11:02 AM EST [facility] Blood Venous blood specimen / Unknown Venipuncture / Unknown 08/12/2024 9:00 AM EST 08/12/2024 10:29 AM EST us Freeman Cerna MD LAB BLOOD ORDERABLES Final Resul t Performing Organization Address City/[facility]/ZIP Co de Phone Number [facility] [address] [place] [address], [place] [phone] documented in this encounter Visit Diagnoses Diagnosis Other correction (current) 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 documented in this encounter Care Teams Audio Visual Project Manager Relationship Specialty Start Date End Date Regan Hogue MD [address] [place] [address] Dr Vitale [facility] [place], [place] PCP - General Internal Medicine 11/12/24 documented as of this encounter
== END 2024-12-24 12:09 | disposition home or self-care (01) ==
LOC: HO.ENCR 11:15
PROVIDERS: PCP Internal Medicine; Visit Provider Dietitian, Registered
DX: E11.9 Type 2 diabetes mellitus without complications (principal); Z79.4 Long term (current) use of insulin

== ENCOUNTER → 2024-12-24 11:14 | Outpatient (BNVA) | payer MEDICARE, MEDICAID, SELFPAY | PROVIDERS: PCP Internal Medicine; Visit Provider Dietitian, Registered | DX: E11.9 Type 2 diabetes mellitus without complications (principal); Z79.4 Long term (current) use of insulin | CPT/HCPCS: 97802 ==

== ENCOUNTER 2025-01-27 10:35 | Outpatient (AMB) | payer MEDICARE, MEDICAID, SELFPAY ==
[2025-01-27 11:12] VITALS: BMI 36.0
--- NOTE | 2025-01-27 11:12 | A.OFFVIS_ITS ---
VS Expanded 01/27/25 11:12 Height 5 ft 8 in Weight 236 lb 12.423 oz BMI 36.0 Intake Visit Reasons: T2DM Allergies lithium [[place]] Allergy (Severe, Verified 11/20/24 09:27) Toxicity thiothixene Allergy (Severe, Verified 11/20/24 09:27) Swelling amoxicillin Allergy (Mild, Verified 11/20/24 09:27) Nose Bleed benztropine Allergy (Unknown, Verified 11/20/24 09:) benztropine mesylate- unknown gabapentin [From NEURONTIN] Allergy (Unknown, Verified 11/20/24 09:) Unknown fluphenazine [From Prolixin] Allergy (Verified 11/20/24 09:) Unknown barium sulfate [BARIUM SULFATE] Adverse Reaction (Intermediate, Verified 11/20/24:) Nausea and Vomiting haloperidol Adverse Reaction (Intermediate, Verified 11/20/24:) Muscle tension in legs diphenhydramine [From Benadryl] Adverse Reaction (Unknown, Verified 11/20/24 09:) urinary retention Nutrition Presentation Details: Pt presents for MNT f/u for T2DM Pt brought glucometer BG as follow: 7 d bg average 229 14 d average at 234 30 d bg average 231 Pt reports not interested in nutrition education BS Monitoring Most Recent Diabetes Results: Cholesterol 171 mg/dL (<200) 11/27/24 HDL Cholesterol 32 mg/dL (>40) L 11/27/24 Triglycerides 246 mg/dL (<150) H 11/27/24 QGM-Kcjraig-Iy.Jeor Equation Height: 5 ft 7 in Weight: 237 lb Resting Metabolic Rate: 1842.44 Calculated Activity Level: Sedentary Calories Needed to Maintain Weight: 2210.93 [facility] Medical History (Updated 12/18/24 @ 00:02 by Cruz Stark) Nocturnal hypoxemia Schizoaffective disorder, bipolar type Diabetic neuropathy Type II diabetes with termite inspector use of insulin BPH (benign prostatic hyperplasia) Diabetes mellitus Essential hypertension HOCM (hypertrophic obstructive cardiomyopathy) Coronary artery disease Osteoarthritis GERD without esophagitis Vitamin D deficiency Congestive heart failure COVID-19 Thought disorder Constipation COPD (chronic obstructive pulmonary disease) Smoker Diabetes mellitus Obesity (BMI 30-39.9) Pure hypercholesterolemia Prolonged QT interval Aggression Hypertension CHF (congestive heart failure) Cardiac arrhythmia Myocardial infarction Surgical History History of ankle surgery History of intestinal surgery History of transurethral resection of prostate Family History Father Medical history unknown Mother Medical history unknown Sister Alive and well Social History Household Members: Other Household Members Other:: [facility] residents Housing: House Housing Other:: [facility] Do you presently have visiting nurse or other home services: Yes Unable to assess alcohol history related to: Unknown Alcohol intake: current Alcohol intake frequency: a few times a month Alcohol type: beer Comment: 1:[address] Patient Tobacco Use Status: Former Tobacco user Tobacco use type: Cigarette Cigarette Packs Per Day: 0.5 Cigarettes Per Day: 10 Years Smoked: Many e-Cigarette/Vaping Use: Currently Using Second Hand Smoke Exposure: Yes Substance Use Type: Unknown Advance Directives Date on File: 01/14/24 service: Yes (attended [employer] 1980) Current occupational status: disabled Sexual orientation: Straight/Heterosexual Cognitive needs: Yes Hearing needs: No Vision needs: Yes Assessment & Plan Assessment & Plan (1) Type II diabetes with half-way use of insulin: Code(s): E11.9 - Type 2 diabetes mellitus without complications; Z79.4 - snf (current) use of insulin Category: Medical Plan: Wt: 106 Kg ( 12/30 ),01/30 Est kcal needs as per MSJ: 2200 (40% carb, 30% protein/fat) Est fluid needs as per 25-30 ml/d: 3200 Est prot per day as per 1 g/kg bw: 106 Recommend fiber intake : 8-10 g per day and gradually increase to 25-28 g per day for women and 35-38 g for men or as tolerated Recommend sodium intake per day : less than 1500 mg less than 2000 mg Educated patient on: ( R = reviewed V = verbalizes understanding N/R = needs review N/A = not applicable * Food sources of carbohydrate, adequate serving sizes and its role in various health conditions: R V N/R * Differences between complex carbohydrates a simple carbohydrates, role of fiber in diet: R V N/R * Lean protein sources of foods: R V NR * Differences between types of fats and role in diet (mono on saturated fat fatty acids, saturated fatty acids, trans fats): R V N/R * Food sources of sodium in salt and healthy modifications for heart health in kidney health: R V R/V * Vitamins and minerals: R V N/R * Healthy plate method concept: R * Physical activity: Benefits a precaution: R * Hypoglycemia protocol (rule of 15): R V N/R * Dietary prevention of Hyperglycemia: R Patient Instructions: Have a sandwich on whole wheat bread with vegetable as a meal (vary on the protein - see sandwich options Choose water, low sugar beverages (herb/fruit infused water Coding Level of Care Code Nutr Indiv Subseq (45495) Diagnoses Type II diabetes with half-way use of insulin E11.9; Z79.4
[2025-01-27 12:32] VITALS: BMI 37.1
--- OUTSIDE RECORDS SUMMARY | 2025-01-27 12:38 | XMS_ITS | Encounter Summary ---
Author Organization [facility] Address [address] [place] [address] Care Team Providers Care Associate Creative Director Name Role Phone Regan Hogue MD Primary Care Provider Encounter Details Date Type Department Care Team (Late st Contact Info) Description 01/27/2025 Lab Requisition [facility] - Main Lab 299 [facility] [place] [address] Freeman Cerna MD [address] Other senior care (current) 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 Social History Tobacco Use Types Packs/Day Years Used Date Smoking Tobacco: Never Assessed Sex and Gender Information Value Date Recorded Sex Assigned at Not on file Legal Sex Male 11:44 PM EST Gender Identity Not on file Sexual Orientation Not on file documented as of this encounter Plan of Treatment Not on file documented as of this encounter Procedures Procedure Name Priority Date/Time Associated Diagnosis Comments CBC WITH AUTO DIFFERENTIAL Routine 01/27/2025 6:17 AM EDT Other battery technician (current) 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 CBC AND DIFFERENTIAL Routine 01/27/2025 6:17 AM EDT Other senior care (current) 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 documented in this encounter Results * (ABNORMAL) CBC auto differential (01/27/2025 6:17 AM EDT) WBC 8.7 4.8 - 10.8 K/[facility] LAB HEMETOLOGY METHOD 01/27/2025 8:36 AM EDT [facility] RBC 4.90 4.50 - 5.50 M/[facility] LAB HEMETOLOGY METHOD 01/27/2025 8:36 AM [facility] LAB Hemoglobin 11.9(L) 13.5 - 17.5 g/dL LAB HEMETOLOGY METHOD 01/27/2025 8:36 AM [facility] LAB Hematocrit 40.1(L) 42.0 - 54.0 % LAB HEMETOLOGY METHOD 01/27/2025 8:36 AM [facility] LAB MCV 82.7 79.0 - 98.0 FL LAB HEMETOLOGY METHOD 01/27/2025 8:36 AM [facility] LAB MCH 24.5(L) 27.0 - 32.0 pcg LAB HEMETOLOGY METHOD 01/27/2025 8:36 AM [facility] LAB MCHC 29.7(L) 32.0 - 37.0 g/dL LAB HEMETOLOGY METHOD 01/27/2025 8:36 AM [facility] LAB RDW 17.3(H) 11.0 - 15.0 % LAB HEMETOLOGY METHOD 01/27/2025 8:36 AM [facility] LAB Platelets 205 130 - 400 K/mcL LAB HEMETOLOGY METHOD 01/27/2025 8:36 AM [facility] LAB MPV 12.8(H) 7.0 - 11.0 FL LAB HEMETOLOGY METHOD 01/27/2025 8:36 AM [facility] LAB NRBC 0.0 <1.0 % LAB HEMETOLOGY METHOD 01/27/2025 8:36 AM [facility] LAB NRBC Absolute 0.00 <0.10 K/mcL LAB HEMETOLOGY METHOD 01/27/2025 8:36 AM [facility] LAB Neutrophils Relative 73.5 % LAB HEMETOLOGY METHOD 01/27/2025 8:36 AM [facility] LAB Lymphocytes Relative 14.6 % LAB HEMETOLOGY METHOD 01/27/2025 8:36 AM EDT [facility] Monocytes Relative 9.3 % LAB HEMETOLOGY METHOD 01/27/2025 8:36 AM EDT [facility] LAB Eosinophils Relative 1.6 % LAB HEMETOLOGY METHOD 01/27/2025 8:36 AM EDT [facility] LAB Basophils Relative 0.7 % LAB HEMETOLOGY METHOD 01/27/2025 8:36 AM EDT [facility] LAB Immature Granulocytes Relative 0.3 % LAB HEMETOLOGY METHOD 01/27/2025 8:36 AM EDT [facility] LAB Neutrophils Absolute 6.41 1.50 - 7.00 K/mcL LAB HEMETOLOGY METHOD 01/27/2025 8:36 AM EDT [facility] LAB Lymphocytes Absolute 1.27 1.00 - 5.00 K/mcL LAB HEMETOLOGY METHOD 01/27/2025 8:36 AM EDT [facility] LAB Monocytes Absolute 0.81 0.20 - 1.00 K/mcL LAB HEMETOLOGY METHOD 01/27/2025 8:36 AM EDT [facility] LAB Eosinophils Absolute 0.14 0.00 - 0.50 K/mcL LAB HEMETOLOGY METHOD 01/27[facility]25 [facility] Basophils Absolute 0.06 0.00 - 0.20 K/mcL LAB HEMETOLOGY METHOD 01/27/2025 8:36 AM EDT [facility] LAB Immature Granulocytes Absolute 0.03 0.00 - 0.03 K/mcL LAB HEMETOLOGY METHOD 01/27/2025 8:36 AM EDT [facility] LAB Blood Venous blood specimen / Unknown Venipuncture / Unknown 01/27/2025 6:17 AM EDT 01/27/2025 8:23 AM EDT us Freeman Cerna MD LAB BLOOD ORDERABLES Final Resul t [facility] H[facility]PITAL LAB [address] [place] [address], documented in this encounter Visit Diagnoses Diagnosis Other battery technician (current) 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 documented in this encounter Care Teams Associate Creative Director Relationship Specialty Start Date End Date Regan Hogue MD [address] [place] [address] Dr [address] [place], [place] PCP - General Internal Medicine 11/12/24 documented as of this encounter
--- OUTSIDE RECORDS SUMMARY | 2025-01-27 12:38 | XMS_ITS | Clinical Summary ---
Author Organization [facility] Address [address] [address] Phone Care Team Providers Care Payroll Director Name Role Phone Regan Hogue MD Primary Care Provider [phone] Allergies Active Allergy Reactions Criticality Noted Date Comments Diphenhydramine Other (see comments) 12/19/2023 Haloperidol Other (see comments) 12/19/2023 [place] Other (see comments) 12/19/2023 Thiothixene (Tiotixene) Other [...] disorder, not otherwise specifie d 12/20/2023 [place] adverse reaction <Sequela> 12/20/2023 Acute nontraumatic kidney injury 12/20/2023 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 No labs) from Last 3 Months Family History Relation Status Comments Father Mother Social History Tobacco Use Types Packs/Day Years Used Date Smoking Tobacco: Every Day Cigarettes 0.5 41.3 Started: 1984 Smokeless Tobacco: Never Tobacco Cessation:Ready [...] Due Date Last Done Comments Pneumococcal Vaccine: 50+ Ye ars (1 of 2 - PCV) 01/11/1983 Colorectal Cancer Screening: Annual FOBT 01/11/2013 Colorectal Cancer Screening: Colonoscopy 01/11/2013 Colorectal Cancer Screening: Sigmoidoscopy 01/11/2013 Influenza Vaccine (Season Ended) 2025 Hepatitis B Vaccine Aged Out No longe r eligible based on patient's age to complete this topic Care Teams Payroll Director Relationship Specialty Start Date End Date Regan Hogue MD [address] [place] [address] PCP - General Internal Medicine 12/20/23
--- OUTSIDE RECORDS SUMMARY | 2025-01-27 12:38 | XMS_ITS | Clinical Summary ---
Author Organization [facility] Address [address] [place] [address] Phone Care Team Providers Care Geoscience Specialist Name Role Phone Regan Hogue MD Primary Care Provider Encounters Date Type Department Care Team Description 01/27/2025 Lab Requisition [facility] - Main Lab [address] [place] [phone] Freeman Cerna MD Other intermodal customer service (current) 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 12/30/2024 Lab Requisition [facility] - Main Lab [address] [place] [phone] Freeman Cerna MD Other intermodal customer service (current) 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 12/02/2024 Lab Requisition [facility] Lab [address] [place] [phone] Freeman Cerna MD Other snf (current) 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 11/04/2024 Lab Requisition [facility] Lab [address] [place] [phone] Freeman Cerna MD Other intermodal customer service (current) 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 from Last 3 Months Social History Tobacco Use Types Packs/Day Years Used Date Smoking Tobacco: Never Assessed Sex and Gender Information Value Date Recorded Sex Assigned at Not on file Legal Sex Male 11:44 PM EST Gender Identity Not on file Sexual Orientation Not on file Plan of Treatment Health Maintenance Due Date [...] Influencers of Health Screening 09/10/2022 RSV Immunization Adult Patie nts (1 - Risk 60-74 years 1-dose series) 2024 COVID-19 Vaccine (2023-2 5 season) 2024 Diabetes: Annual Urine Albumin-Creatinine Ratio (uACR) 11/12/2024 Diabetes: Blood Sugar Contro l Test (HGBA1C) 11/12/2024 Influenza Vaccine (Season Ended) 2025 HIB Vaccines Aged Out No longer eligi [...] age to complete this topic Meningococcal B Vaccine Aged Out No l onger eligible based on patient's age to complete this topic RSV Immunization Patients Un shante 20 months Aged Out No longer eligible b ased on patient's age to complete this topic Varicella Vaccines Aged Out No longer eligible based on patient's age to complete this topic Procedures Procedure Name Priority Date/Time Associated Diagnosis Comments CBC WITH AUTO DIFFERENTIAL Routine 01/27/2025 6:17 AM EDT Other snf (current) 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 CBC AND DIFFERENTIAL Routine 01/27/2025 6:17 AM EDT Other intermodal customer service (current) 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 CBC WITH AUTO DIFFERENTIAL Routine 12/30/2024 11:06 AM EDT Other snf (current) 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 CBC AND DIFFERENTIAL Routine 12/30/2024 11:06 AM EDT Other intermodal customer service (current) 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 CBC WITH AUTO DIFFERENTIAL Routine 11/04/2024 6:33 AM EST Other snf (current) 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 CBC AND DIFFERENTIAL Routine 11/04/2024 6:33 AM EST Other intermodal customer service (current) 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 from Last 3 Months Results * (ABNORMAL) CBC auto differential (01/27/2025 6:17 AM EDT) Only the most recent of3 resultswithin the time period is included. [facility] WBC 8.7 4.8 - 10.8 K/mcL LAB HEMETOLOGY METHOD 01/27/2025 8:36 AM [facility] LAB RBC 4.90 4.50 - 5.50 M/mcL LAB HEMETOLOGY METHOD 01/27/2025 8:36 AM [facility] LAB Hemoglobin 11.9(L) 13.5 - 17.5 g/dL LAB HEMETOLOGY METHOD 01/27/2025 8:36 AM [facility] LAB Hematocrit 40.1(L) 42.0 - 54.0 % LAB HEMETOLOGY METHOD 01/27/2025 8:36 AM [facility] LAB MCV 82.7 79.0 - 98.0 FL LAB HEMETOLOGY METHOD 01/27/2025 8:36 AM [facility] LAB MCH 24.5(L) 27.0 - 32.0 pcg LAB HEMETOLOGY METHOD 01/27/2025 8:36 AM [facility] LAB MCHC 29.7(L) 32.0 - 37.0 g/dL LAB HEMETOLOGY METHOD 01/27/2025 8:36 AM [facility] LAB RDW 17.3(H) 11.0 - 15.0 % LAB HEMETOLOGY METHOD 01/27/2025 8:36 AM [facility] LAB Platelets 205 130 - 400 K/mcL LAB HEMETOLOGY METHOD 01/27/2025 8:36 AM [facility] LAB MPV 12.8(H) 7.0 - 11.0 FL LAB HEMETOLOGY METHOD 01/27/2025 8:36 AM [facility] LAB NRBC 0.0 <1.0 % LAB HEMETOLOGY METHOD 01/27/2025 8:36 AM [facility] LAB NRBC Absolute 0.00 <0.10 K/[facility] LAB HEMETOLOGY METHOD 01/27/2025 8:36 AM [facility] LAB Neutrophils Relative 73.5 % LAB HEMETOLOGY METHOD 01/27/2025 8:36 AM [facility] LAB Lymphocytes Relative 14.6 % LAB HEMETOLOGY METHOD 01/27/2025 8:36 AM [facility] LAB Monocytes Relative 9.3 % LAB HEMETOLOGY METHOD 01/27/2025 8:36 AM [facility] LAB Eosinophils Relative 1.6 % LAB HEMETOLOGY METHOD 01/27/2025 8:36 AM [facility] LAB Basophils Relative 0.7 % LAB HEMETOLOGY METHOD 01/27/2025 8:36 AM [facility] LAB Immature Granulocytes Relative 0.3 % LAB HEMETOLOGY METHOD 01/27/2025 8:36 AM [facility] LAB Neutrophils Absolute 6.41 1.50 - 7.00 K/mcL LAB HEMETOLOGY METHOD 01/27/2025 8:36 AM [facility] LAB Lymphocytes Absolute 1.27 1.00 - 5.00 K/mcL LAB HEMETOLOGY METHOD 01/27/2025 8:36 AM EDT [facility] LAB Monocytes Absolute 0.81 0.20 - 1.00 K/mcL LAB HEMETOLOGY METHOD 01/27/2025 8:36 AM EDT [facility] LAB Eosinophils Absolute 0.14 0.00 - 0.50 K/[facility] LAB HEMETOLOGY METHOD 01/27/2025 8:36 AM EDT [facility] LAB Basophils Absolute 0.06 0.00 - 0.20 K/[facility] LAB HEMETOLOGY METHOD 01/27/2025 8:36 AM EDT [facility] LAB Immature Granulocytes Absolute 0.03 0.00 - 0.03 K/[facility] LAB HEMETOLOGY METHOD 01/27/2025 8:36 AM EDT [facility] LAB Blood Venous blood specimen / Unknown Venipuncture / Unknown 01/27/2025 6:17 AM EDT 01/27/2025 8:23 AM EDT us Freeman Cerna MD LAB BLOOD ORDERABLES Final Resul t [facility] LAB [address] [place] [address], from Last 3 Months Insurance MEDICAID - [place] MEDICARE [employer] MEDICARE Care Teams Geoscience Specialist Relationship Specialty Start Date End Date Regan Hogue MD [address] [place] [address] [address] [place] PCP - General Internal Medicine 11/12/24
--- OUTSIDE RECORDS SUMMARY | 2025-01-27 12:38 | XMS_ITS | Encounter Summary ---
Author Organization [facility] Address [address] [place] [address] Care Team Providers Care Computer Project Manager Name Role Phone Regan Hogue MD Primary Care Provider Encounter Details Date Type Department Care Team (Late st Contact Info) Description 08/12/2024 Lab Requisition [facility] - Main Lab [address] [place] [address] Freeman Cerna MD [address] Other care home (current) 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 Social History Tobacco Use [...] FEE Routine 08/12/2024 9:00 AM EST Other bed bug exterminator (current) 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 CBC WITH AUTO DIFFERENTIAL Routine 08/12/2024 9:00 AM EST Other care home (current) 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 CBC AND DIFFERENTIAL Routine 08/12/2024 9:00 AM EST Other care home (current) 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 documented in this encounter Results * (ABNORMAL) CBC auto differential (08/12/2024 9:00 AM EST) [facility] Signature WBC 6.5 4.8 - 10.8 K/[facility] LAB HEMETOLOGY METHOD 08/12/2024 11:44 AM EST [facility] LAB RBC 4.30(L) 4.50 - 5.50 M/mcL LAB HEMETOLOGY METHOD 08/12/2024 11:44 AM [facility] LAB Hemoglobin 11.6(L) 13.5 - 17.5 g/dL LAB HEMETOLOGY METHOD 08/12/2024 11:44 AM [facility] LAB Hematocrit 37.1(L) 42.0 - 54.0 % LAB HEMETOLOGY METHOD 08/12/2024 11:44 AM [facility] LAB MCV 86.7 79.0 - 98.0 FL LAB HEMETOLOGY METHOD 08/12/2024 11:44 AM [facility] LAB MCH 27.1 27.0 - 32.0 pcg LAB HEMETOLOGY METHOD 08/12/2024 11:44 AM [facility] LAB MCHC 31.3(L) 32.0 - 37.0 g/dL LAB HEMETOLOGY METHOD 08/12/2024 11:44 AM [facility] LAB RDW 15.7(H) 11.0 - 15.0 % LAB HEMETOLOGY METHOD 08/12/2024 11:44 AM [facility] LAB Platelets 121(L) 130 - 400 K/mcL LAB HEMETOLOGY METHOD 08/12/2024 11:44 AM [facility] LAB MPV 12.6(H) 7.0 - 11.0 FL LAB HEMETOLOGY METHOD 08/12/2024 11:44 AM [facility] LAB NRBC 0.0 <1.0 % LAB HEMETOLOGY METHOD 08/12/2024 11:44 AM [facility] LAB NRBC Absolute 0.00 <0.10 K/mcL LAB HEMETOLOGY METHOD 08/12/2024 11:44 AM [facility] LAB Neutrophils Relative 74.8 % LAB HEMETOLOGY METHOD 08/12/2024 11:44 AM [facility] LAB Lymphocytes Relative 13.3 % LAB HEMETOLOGY METHOD 08/12/2024 11:44 AM [facility] LAB Monocytes Relative 9.4 % LAB HEMETOLOGY METHOD 08/12/2024 11:44 AM [facility] LAB Eosinophils Relative 1.1 % LAB HEMETOLOGY METHOD 08/12/2024 11:44 AM [facility] LAB Basophils Relative 0.6 % LAB HEMETOLOGY METHOD 08/12/2024 11:44 AM [facility] LAB Immature Granulocytes Relative 0.8 % LAB HEMETOLOGY METHOD 08/12/2024 11:44 AM [facility] LAB Neutrophils Absolute 4.86 1.50 - 7.00 K/mcL LAB HEMETOLOGY METHOD 08/12/2024 11:44 AM [facility] LAB Lymphocytes Absolute 0.86(L) 1.00 - 5.00 K/mcL LAB HEMETOLOGY METHOD 08/12/2024 11:44 AM [facility] LAB Monocytes Absolute 0.61 0.20 - 1.00 K/mcL LAB HEMETOLOGY METHOD 08/12/2024 11:44 AM [facility] LAB Eosinophils Absolute 0.07 0.00 - 0.50 K/mcL LAB HEMETOLOGY METHOD 08/12/2024 11:44 AM [facility] LAB Basophils Absolute 0.04 0.00 - 0.20 K/mcL LAB HEMETOLOGY METHOD 08/12/2024 11:44 AM [facility] LAB Immature Granulocytes Absolute 0.05(H) 0.00 - 0.03 K/mcL LAB HEMETOLOGY METHOD 08/12/2024 11:44 AM [facility] LAB Blood Venous blood specimen / Unknown Venipuncture / Unknown 08/12/2024 9:00 AM EST 08/12/2024 10:29 AM EST us Freeman Cerna MD LAB BLOOD ORDERABLES Final Resul t Performing Organization Address [facility]/ZIP Co de Phone Number [facility] [address] [place] [address], * Travel phlebotomy fee (08/12/2024 9:00 AM EST) [facility] TRAVEL PHLEBOTOMY FEE Completed 08/12/2024 11:02 AM EST [facility] Blood Venous blood specimen / Unknown Venipuncture / Unknown 08/12/2024 9:00 AM EST 08/12/2024 10:29 AM EST Freeman Cerna MD LAB BLOOD ORDERABLES Final Resul t Performing Organization Address [facility] Co de Phone Number [facility] [address] [place] [address], [place] [phone] documented in this encounter Visit Diagnoses Diagnosis Other care home (current) 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 documented in this encounter Care Teams Computer Project Manager Relationship Specialty Start Date End Date Regan Hogue MD [address] [place] [address] Dr [address] Buddy MD PCP - General Internal Medicine 11/12/24 documented as of this encounter
--- OUTSIDE RECORDS SUMMARY | 2025-01-27 12:38 | XMS_ITS | Encounter Summary ---
Author Organization [facility] Address [address] [place] [address] Care Team Providers Care Licensed Pharmacist Name Role Phone Regan Hogue MD Primary Care Provider Encounter Details Date Type Department Care Team (Late st Contact Info) Description 10/07/[address] [facility] - Main Lab [address] [facility] [place] [address] Freeman Cerna MD [address] Other fdc (current) 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 Social History Tobacco Use [...] DIFFERENTIAL Routine 10/07/2024 7:40 AM EST Other director long term care (current) 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 CBC AND DIFFERENTIAL Routine 10/07/2024 7:40 AM EST Other fdc (current) 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 documented in this encounter Results * (ABNORMAL) CBC auto differential (10/07/2024 7:40 AM EST) WBC 8.0 4.8 - 10.8 K/[facility] LAB HEMETOLOGY METHOD 10/07/2024 12:19 PM EST [facility] ([facility]) [facility] LAB RBC 4.20(L) 4.50 - 5.50 M/[facility] LAB HEMETOLOGY METHOD 10/07/2024 12:19 PM [facility] LAB Hemoglobin 11.1(L) 13.5 - 17.5 g/dL LAB HEMETOLOGY METHOD 10/07/2024 12:19 PM [facility] LAB Hematocrit 36.7(L) 42.0 - 54.0 % LAB HEMETOLOGY METHOD 10/07/2024 12:19 PM [facility] LAB MCV 87.0 79.0 - 98.0 FL LAB HEMETOLOGY METHOD 10/07/2024 12:19 PM [facility] LAB MCH 26.3(L) 27.0 - 32.0 pcg LAB HEMETOLOGY METHOD 10/07/2024 12:19 PM [facility] LAB MCHC 30.2(L) 32.0 - 37.0 g/dL LAB HEMETOLOGY METHOD 10/07/2024 12:19 PM [facility] LAB RDW 15.3(H) 11.0 - 15.0 % LAB HEMETOLOGY METHOD 10/07/2024 12:19 PM [facility] LAB Platelets 160 130 - 400 K/mcL LAB HEMETOLOGY METHOD 10/07/2024 12:19 PM [facility] LAB MPV 12.9(H) 7.0 - 11.0 FL LAB HEMETOLOGY METHOD 10/07/2024 12:19 PM [facility] LAB NRBC 0.0 <1.0 % LAB HEMETOLOGY METHOD 10/07/2024 12:19 PM [facility] LAB NRBC Absolute 0.00 <0.10 K/mcL LAB HEMETOLOGY METHOD 10/07/2024 12:19 PM [facility] LAB Neutrophils Relative 72.5 % LAB HEMETOLOGY METHOD 10/07/2024 12:19 PM [facility] LAB Lymphocytes Relative 16.9 % LAB HEMETOLOGY METHOD 10/07/2024 12:19 PM [facility] LAB Monocytes Relative 7.4 % LAB HEMETOLOGY METHOD 10/07/2024 12:19 PM EST [facility] LAB Eosinophils Relative 2.1 % LAB HEMETOLOGY METHOD 10/07/2024 12:19 PM [facility] LAB Basophils Relative 0.6 % LAB HEMETOLOGY METHOD 10/07/2024 12:19 PM [facility] LAB Immature Granulocytes Relative 0.5 % LAB HEMETOLOGY METHOD 10/07/2024 12:19 PM [facility] LAB Neutrophils Absolute 5.78 1.50 - 7.00 K/mcL LAB HEMETOLOGY METHOD 10/07/2024 12:19 PM [facility] LAB Lymphocytes Absolute 1.35 1.00 - 5.00 K/mcL LAB HEMETOLOGY METHOD 10/07/2024 12:19 PM [facility] LAB Monocytes Absolute 0.59 0.20 - 1.00 K/mcL LAB HEMETOLOGY METHOD 10/07/2024 12:19 PM EST [facility] LAB Eosinophils Absolute 0.17 0.00 - 0.50 K/mcL LAB HEMETOLOGY METHOD 10/07/2024 12:19 PM [facility] LAB Basophils Absolute 0.05 0.00 - 0.20 K/mcL LAB HEMETOLOGY METHOD 10/07/2024 12:19 PM [facility] LAB Immature Granulocytes Absolute 0.04(H) 0.00 - 0.03 K/mcL LAB HEMETOLOGY METHOD 10/07/2024 12:19 PM [facility] LAB Blood Venous blood specimen / Unknown Venipuncture / Unknown 10/07/2024 7:40 AM EST 10/07/2024 11:28 AM EST us Freeman Cerna MD LAB BLOOD ORDERABLES Final Resul t [facility] [address] [place], [place] [address] [phone] documented in this encounter Visit Diagnoses Diagnosis Other director long term care (current) 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 documented in this encounter Care Teams Licensed Pharmacist Relationship Specialty Start Date End Date Regan Hogue MD [address] [place] [address] Dr [address] RANDALL Goodwin PCP - General Internal Medicine 11/12/24 documented as of this encounter
--- OUTSIDE RECORDS SUMMARY | 2025-01-27 12:38 | XMS_ITS | Encounter Summary ---
Author Organization [facility] Address [address] [place] [address] Care Team Providers Care Validation Intern Name Role Phone Regan Hogue MD Primary Care Provider Encounter Details Date Type Department Care Team (Late st Contact Info) Description 11/04/2024 Lab Requisition [facility] - Main Lab [address] [facility] [place] [address] Freeman Cerna MD [address] Other intermediate (current) 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 Social History Tobacco Use [...] DIFFERENTIAL Routine 11/04/2024 6:33 AM EST Other termite helper (current) 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 CBC AND DIFFERENTIAL Routine 11/04/2024 6:33 AM EST Other intermediate (current) 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 documented in this encounter Results * (ABNORMAL) CBC auto differential (11/04/2024 6:33 AM EST) WBC 7.7 4.8 - 10.8 K/[facility] LAB HEMETOLOGY METHOD 11/04/2024 10:21 AM EST [facility] ([facility]) [facility] LAB RBC 3.90(L) 4.50 - 5.50 M/[facility] LAB HEMETOLOGY METHOD 11/04/2024 10:21 AM [facility] LAB Hemoglobin 10.4(L) 13.5 - 17.5 g/dL LAB HEMETOLOGY METHOD 11/04/2024 10:21 AM [facility] LAB Hematocrit 34.8(L) 42.0 - 54.0 % LAB HEMETOLOGY METHOD 11/04/2024 10:21 AM [facility] LAB MCV 88.8 79.0 - 98.0 FL LAB HEMETOLOGY METHOD 11/04/2024 10:21 AM [facility] LAB MCH 26.5(L) 27.0 - 32.0 pcg LAB HEMETOLOGY METHOD 11/04/2024 10:21 AM [facility] LAB MCHC 29.9(L) 32.0 - 37.0 g/dL LAB HEMETOLOGY METHOD 11/04/2024 10:21 AM [facility] LAB RDW 16.6(H) 11.0 - 15.0 % LAB HEMETOLOGY METHOD 11/04/2024 10:21 AM [facility] LAB Platelets 131 130 - 400 K/mcL LAB HEMETOLOGY METHOD 11/04/2024 10:21 AM [facility] LAB MPV 13.1(H) 7.0 - 11.0 FL LAB HEMETOLOGY METHOD 11/04/2024 10:21 AM [facility] LAB NRBC 0.0 <1.0 % LAB HEMETOLOGY METHOD 11/04/2024 10:21 AM [facility] LAB NRBC Absolute 0.00 <0.10 K/mcL LAB HEMETOLOGY METHOD 11/04/2024 10:21 AM [facility] LAB Neutrophils Relative 70.9 % LAB HEMETOLOGY METHOD 11/04/2024 10:21 AM [facility] LAB Lymphocytes Relative 17.2 % LAB HEMETOLOGY METHOD 11/04/2024 10:21 AM [facility] LAB Monocytes Relative 9.1 % LAB HEMETOLOGY METHOD 11/04/2024 10:21 AM EST [facility] LAB Eosinophils Relative 1.8 % LAB HEMETOLOGY METHOD 11/04/2024 10:21 AM [facility] LAB Basophils Relative 0.7 % LAB HEMETOLOGY METHOD 11/04/2024 10:21 AM [facility] LAB Immature Granulocytes Relative 0.3 % LAB HEMETOLOGY METHOD 11/04/2024 10:21 AM EST [facility] LAB Neutrophils Absolute 5.46 1.50 - 7.00 K/mcL LAB HEMETOLOGY METHOD 11/04/2024 10:21 AM [facility] LAB Lymphocytes Absolute 1.32 1.00 - 5.00 K/mcL LAB HEMETOLOGY METHOD 11/04/2024 10:21 AM [facility] LAB Monocytes Absolute 0.70 0.20 - 1.00 K/mcL LAB HEMETOLOGY METHOD 11/04/2024 10:21 AM EST [facility] LAB Eosinophils Absolute 0.14 0.00 - 0.50 K/mcL LAB HEMETOLOGY METHOD 11/04/2024 10:21 AM [facility] LAB Basophils Absolute 0.05 0.00 - 0.20 K/mcL LAB HEMETOLOGY METHOD 11/04/2024 10:21 AM [facility] LAB Immature Granulocytes Absolute 0.02 0.00 - 0.03 K/mcL LAB HEMETOLOGY METHOD 11/04/2024 10:21 AM [facility] LAB Blood Venous blood specimen / Unknown Venipuncture / Unknown 11/04/2024 6:33 AM EST 11/04/2024 8:32 AM EST us Freeman Cerna MD LAB BLOOD ORDERABLES Final Resul t [facility] [address] [place], [place] [address] [phone] documented in this encounter Visit Diagnoses Diagnosis Other intermediate (current) 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 documented in this encounter Care Teams Validation Intern Relationship Specialty Start Date End Date Regan Hogue MD [address] [place] [address] [address] Buddy MD PCP - General Internal Medicine 11/12/24 documented as of this encounter
--- OUTSIDE RECORDS SUMMARY | 2025-01-27 12:38 | XMS_ITS | Encounter Summary ---
Author Organization [facility] Address [address] [place] [address] Care Team Providers Care Lime Mixer Tender Name Role Phone Regan Hogue MD Primary Care Provider Encounter Details Date Type Department Care Team (Late st Contact Info) Description 12/02/2024 Lab Requisition [facility] - Main Lab 299 [facility] [place] [address] Freeman Cerna MD [address] Other half-way (current) 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 Social [...] therapy documented in this encounter Care Teams Lime Mixer Tender Relationship Specialty Start Date End Date Regan Hogue MD [address] [place] [address] [address] [place] [address] PCP - General Internal Medicine 11/12/24 documented as of this encounter
--- OUTSIDE RECORDS SUMMARY | 2025-01-27 12:38 | XMS_ITS | Encounter Summary ---
Author Organization [facility] Address [address] [place] [address] Care Team Providers Care Graphics Artist Name Role Phone Regan Hogue MD Primary Care Provider Encounter Details Date Type Department Care Team (Late st Contact Info) Description 12/30/2024 Lab Requisition [facility] - Main Lab 299 [facility] [place] [address] Freeman Cerna MD [address] Other longterm (current) 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 Social History Tobacco Use [...] Diagnosis Comments CBC WITH AUTO DIFFERENTIAL Routine 12/30/2024 11:06 AM EDT Other longterm (current) 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 CBC AND DIFFERENTIAL Routine 12/30/2024 11:06 AM EDT Other rodent exterminator (current) 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 documented in this encounter Results * (ABNORMAL) CBC auto differential (12/30/2024 11:06 AM EDT) WBC 7.1 4.8 - 10.8 K/[facility] LAB HEMETOLOGY METHOD 12/30/2024 12:46 PM EDT [facility] ([facility] LAB RBC 4.70 4.50 - 5.50 M/[facility] LAB HEMETOLOGY METHOD 12/30/2024 12:46 PM [facility] LAB Hemoglobin 11.5(L) 13.5 - 17.5 g/dL LAB HEMETOLOGY METHOD [facility]24 12[facility] Hematocrit 38.8(L) 42.0 - 54.0 % LAB HEMETOLOGY METHOD 12/30/2024 12:46 PM [facility] LAB MCV 83.3 79.0 - 98.0 FL LAB HEMETOLOGY METHOD 12/30/2024 12:46 [facility] MCH 24.7(L) 27.0 - 32.0 pcg LAB HEMETOLOGY METHOD 12/30/2024 12:46 PM [facility] LAB MCHC 29.6(L) 32.0 - 37.0 g/dL LAB HEMETOLOGY METHOD 12/30/2024 12:46 PM [facility] LAB RDW 16.1(H) 11.0 - 15.0 % LAB HEMETOLOGY METHOD 12/30/2024 12:46 PM [facility] LAB Platelets 183 130 - 400 K/mcL LAB HEMETOLOGY METHOD 12/30/2024 12:46 PM [facility] LAB MPV 11.9(H) 7.0 - 11.0 FL LAB HEMETOLOGY METHOD 12/30/2024 12:46 PM [facility] LAB NRBC 0.0 <1.0 % LAB HEMETOLOGY METHOD 12/30/2024 12:46 PM [facility] LAB NRBC Absolute 0.00 <0.10 K/mcL LAB HEMETOLOGY METHOD 12/30/2024 12:46 PM [facility] LAB Neutrophils Relative 78.9 % LAB HEMETOLOGY METHOD 12/30/2024 12:46 PM [facility] LAB Lymphocytes Relative 12.3 % LAB HEMETOLOGY METHOD 12/30/2024 12:46 PM EDT [facility] LAB Monocytes Relative 6.2 % LAB HEMETOLOGY METHOD 12/30/2024 12:46 [facility] Eosinophils Relative 1.4 % LAB HEMETOLOGY METHOD 12/30/2024 12:46 PM [facility] LAB Basophils Relative 0.6 % LAB HEMETOLOGY METHOD 12/30/2024 12:46 PM [facility] LAB Immature Granulocytes Relative 0.6 % LAB HEMETOLOGY METHOD 12/30/2024 12:46 PM [facility] LAB Neutrophils Absolute 5.57 1.50 - 7.00 K/mcL LAB HEMETOLOGY METHOD 12/30/2024 12:46 PM [facility] LAB Lymphocytes Absolute 0.87(L) 1.00 - 5.00 K/mcL LAB HEMETOLOGY METHOD 12/30/2024 12:46 [facility] Monocytes Absolute 0.44 0.20 - 1.00 K/mcL LAB HEMETOLOGY METHOD 12/30/2024 12:46 PM [facility] LAB Eosinophils Absolute 0.10 0.00 - 0.50 K/mcL LAB HEMETOLOGY METHOD 12/30/2024 12:46 PM [facility] LAB Basophils Absolute 0.04 0.00 - 0.20 K/mcL LAB HEMETOLOGY METHOD 12/30/2024 12:46 PM [facility] LAB Immature Granulocytes Absolute 0.04(H) 0.00 - 0.03 K/mcL LAB HEMETOLOGY METHOD 12/30/2024 12:46 PM [facility] LAB Blood Venous blood specimen / Unknown Venipuncture / Unknown 12/30/2024 11:06 AM EDT 12/30/2024 12:12 PM EDT us Freeman Cerna MD LAB BLOOD ORDERABLES Final Resul t [facility] [address] [place] [address], documented in this encounter Visit Diagnoses Diagnosis Other rodent exterminator (current) 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 documented in this encounter Care Teams Graphics Artist Relationship Specialty Start Date End Date Regan Hogue MD [address] [place] [address] Dr [address] [place] PCP - General Internal Medicine 11/12/24 documented as of this encounter
--- OUTSIDE RECORDS SUMMARY | 2025-01-27 12:38 | XMS_ITS | Encounter Summary ---
Author Organization [facility] Address [address] [place] [address] Care Team Providers Care Undergraduate Advisor Name Role Phone Regan Hogue MD Primary Care Provider Encounter Details Date Type Department Care Team (Late st Contact Info) Description 09/09/2024 Lab Requisition [facility] - Main Lab 299 [facility] [place] [address] Freeman Cerna MD [address] Other detention (current) 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 Social [...] DIFFERENTIAL Routine 09/09/2024 6:39 AM EST Other intermediate frame tender (current) 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 CBC AND DIFFERENTIAL Routine 09/09/2024 6:39 AM EST Other detention (current) 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 documented in this encounter Results * (ABNORMAL) CBC auto differential (09/09/2024 6:39 AM EST) [facility] Signature WBC 7.0 4.8 - 10.8 K/[facility] LAB HEMETOLOGY METHOD 09/09/2024 10:01 AM EST [facility] ([facility]) [facility] LAB RBC 4.20(L) 4.50 - 5.50 M/[facility] LAB HEMETOLOGY METHOD 09/09/2024 10:[address] [facility] LAB Hemoglobin 11.2(L) 13.5 - 17.5 g/dL LAB HEMETOLOGY METHOD 09/09/2024 10:[address] [facility] LAB Hematocrit 37.2(L) 42.0 - 54.0 % LAB HEMETOLOGY METHOD 09/09/2024 10:[address] [facility] LAB MCV 88.2 79.0 - 98.0 FL LAB HEMETOLOGY METHOD 09/09/2024 10:[address] [facility] LAB MCH 26.5(L) 27.0 - 32.0 pcg LAB HEMETOLOGY METHOD 09/09/2024 10:[address] [facility] LAB MCHC 30.1(L) 32.0 - 37.0 g/dL LAB HEMETOLOGY METHOD 09/09/2024 10:[address] [facility] LAB RDW 15.7(H) 11.0 - 15.0 % LAB HEMETOLOGY METHOD 09/09/2024 10:[address] [facility] LAB Platelets 147 130 - 400 K/mcL LAB HEMETOLOGY METHOD 09/09/2024 10:[address] [facility] LAB MPV 12.8(H) 7.0 - 11.0 FL LAB HEMETOLOGY METHOD 09/09/2024 10:[address] [facility] LAB NRBC 0.0 <1.0 % LAB HEMETOLOGY METHOD 09/09/2024 10:[address] [facility] LAB NRBC Absolute 0.00 <0.10 K/mcL LAB HEMETOLOGY METHOD 09/09/2024 10:[address] [facility] LAB Neutrophils Relative 72.6 % LAB HEMETOLOGY METHOD 09/09/2024 10:[address] [facility] LAB Lymphocytes Relative 15.3 % LAB HEMETOLOGY METHOD 09/09/2024 10:[address] [facility] LAB Monocytes Relative 8.9 % LAB HEMETOLOGY METHOD 09/09/2024 10:[address] [facility] LAB Eosinophils Relative 2.0 % LAB HEMETOLOGY METHOD 09/09/2024 10:[address] [facility] LAB Basophils Relative 0.6 % LAB HEMETOLOGY METHOD 09/09/2024 10:[address] [facility] LAB Immature Granulocytes Relative 0.6 % LAB HEMETOLOGY METHOD 09/09/2024 10:[address] [facility] LAB Neutrophils Absolute 5.08 1.50 - 7.00 K/mcL LAB HEMETOLOGY METHOD 09/09/2024 10:[address] [facility] LAB Lymphocytes Absolute 1.07 1.00 - 5.00 K/mcL LAB HEMETOLOGY METHOD 09/09/2024 10:[address] [facility] LAB Monocytes Absolute 0.62 0.20 - 1.00 K/mcL LAB HEMETOLOGY METHOD 09/09/2024 10:01 AM EST [facility] LAB Eosinophils Absolute 0.14 0.00 - 0.50 K/mcL LAB HEMETOLOGY METHOD 09/09/2024 10:[address] [facility] LAB Basophils Absolute 0.04 0.00 - 0.20 K/mcL LAB HEMETOLOGY METHOD 09/09/2024 10:[address] [facility] LAB Immature Granulocytes Absolute 0.04(H) 0.00 - 0.03 K/mcL LAB HEMETOLOGY METHOD 09/09/2024 10:[address] [facility] LAB Blood Venous blood specimen / Unknown Venipuncture / Unknown 09/09/2024 6:39 AM EST 09/09/2024 9:46 AM EST us Freeman Cerna MD LAB BLOOD ORDERABLES Final Resul t [facility] [address] [place], [place] [address] [phone] documented in this encounter Visit Diagnoses Diagnosis Other detention (current) 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 documented in this encounter Care Teams Undergraduate Advisor Relationship Specialty Start Date End Date Regan Hogue MD [address] [place] [address] Dr [address] RANDALL Goodwin PCP - General Internal Medicine 11/12/24 documented as of this encounter
== END 2025-01-27 14:06 | disposition home or self-care (01) ==
LOC: HO.ENCR 10:35
PROVIDERS: PCP Internal Medicine; Visit Provider Dietitian, Registered
DX: E11.9 Type 2 diabetes mellitus without complications (principal); Z79.4 Long term (current) use of insulin

== ENCOUNTER → 2025-01-27 10:35 | Outpatient (BNVA) | payer MEDICARE, MEDICAID, SELFPAY | PROVIDERS: PCP Internal Medicine; Visit Provider Dietitian, Registered | DX: E11.9 Type 2 diabetes mellitus without complications (principal); E66.9 Obesity, unspecified; Z79.4 Long term (current) use of insulin; Z68.36 Body mass index [BMI] 36.0-36.9, adult | CPT/HCPCS: 97803 ==

== ENCOUNTER 2025-02-09 05:13 | Emergency (ER) | payer MEDICARE, MEDICAID, SELFPAY ==
[2025-02-09] VITALS (7 sets, daily range): BP systolic 123–145; BP diastolic 66–90; PULSE 86–96; RESP 16–25; TEMP 36.4–37.3; O2SAT 91–98; BMI 35.7
--- NOTE | ~2025-02-09 | XR_ITS ---
EXAMINATION: XR FOOT 3 OR MORE VIEWS LEFT HISTORY: fall pain COMPARISON: Comparison is made with the prior examination dated 07/21/2021. FINDINGS: Three views of the left foot are submitted. Osseous mineralization is normal. There are osseous erosions involving the head of the 1st metatarsal and the head of the 1st proximal phalanx. Adjacent soft tissue calcifications are suspicious for gout. The patient is status post internal fixation of the distal fibula. There is a transversely oriented linear lucency at the base of the 3rd metatarsal, consistent with a nondisplaced fracture. There is moderate osteoarthritis of the intertarsal joints. There are calcaneal spurs at the plantar aspect and at the insertion of the Achilles tendon. There is soft tissue swelling adjacent to the MTP joint of the great toe. XR/XR foot LT min 3V IMPRESSION: 1. Nondisplaced transverse fracture of the base of the 3rd metatarsal. 2. Findings suspicious for gout involving the great toe as described.. Electronically signed by: Ga Concepcion MD 02/09/2025 08:52 AM EDT
--- NOTE | ~2025-02-09 | XR_ITS ---
EXAMINATION: XR CHEST CLINICAL INFORMATION: dyspnea COMPARISON: 09/28/2024, 05/29/2024. TECHNIQUE: Frontal view of the chest was obtained. FINDINGS: Is cardiac enlargement, similar. Mediastinal contours are normal. Mercedes demonstrate engorgement of the hilar vessels, which appears to be baseline. The lungs are clear bilaterally. No pneumothorax or effusion. No focal osseous or soft tissue abnormality. XR/XR chest 1V IMPRESSION: 1. Cardiomegaly. 2. No active pulmonary disease. Electronically signed by: Freeman Rhodes MD 02/09/2025 08:50 AM EDT
--- NOTE | ~2025-02-09 | XR_ITS ---
EXAMINATION: XR THORACIC SPINE CLINICAL INFORMATION: fall COMPARISON: None available. TECHNIQUE: 3 views of the thoracic spine were obtained. FINDINGS: There is no significant scoliosis. There is mild straightening of the normal kyphosis. There is normal alignment without subluxation. There are no fractures, compression deformities, or suspicious bone lesions. There are mild to moderate degenerative disc changes throughout. Facets are normally aligned. The imaged soft tissues and lungs appear normal. XR/XR thoracic spine 3V IMPRESSION: No acute findings of the thoracic spine. Mild degenerative spondylosis. Electronically signed by: Freeman Rhodes MD 02/09/2025 08:51 AM EDT
--- NOTE | ~2025-02-09 | CT_ITS ---
CLINICAL HISTORY: fall HS CT cervical spine without contrast Comparison: None Findings: Bony alignment of the cervical vertebral bodies is anatomic. No fracture or prevertebral soft tissue swelling is identified. [id number] multilevel degenerative disc disease and degenerative facet disease is seen throughout the cervical spine. Upper airway is patent. No apical pneumothorax. IMPRESSION: Multilevel degenerative change without acute fracture. This document has been electronically signed by: Tino Parkinson MD on 02/09/2025 06:32:54
--- NOTE | ~2025-02-09 | CT_ITS ---
CLINICAL HISTORY: fall HS CT head without contrast Comparison: CT/[place]/SR - CT HEAD/BRAIN WO IV CON - 02/12/24 09:23 EDT Findings: Images mildly degraded by patient motion. Generalized cerebral and cerebellar atrophy as seen on the patient's prior study. The size and shape of the ventricular system is within normal limits for this degree of atrophy. Mild areas of low-attenuation are identified within the periventricular and deep white matter. Subtle low attenuation within the left occipital lobe with indistinctness of the rodrigez-white differentiation. In retrospect, I believe this was present on prior study. Midline shift or mass effect. No intracranial hemorrhage. Calvarial fractures. Minor mucosal thickening within the right maxillary sinus. Patient has undergone prior bilateral scleral banding. Bilateral proptosis is again seen. IMPRESSION: 1. No acute intracranial findings. Specifically, no fracture or intracranial hemorrhage. This document has been electronically signed by: Tino Parkinson MD on 02/09/2025 06:32:43
--- NOTE | 2025-02-09 07:26 | ECG_ITS ---
Test Reason : dsypnea Blood Pressure : */* mmHG Vent. Rate : 91 BPM Atrial Rate : 91 BPM P-R Int : 172 ms QRS Dur : 110 ms QT Int : 400 ms P-R-T Axes : 70 31 193 degrees QTcB Int : 492 ms Normal sinus rhythm Incomplete left bundle branch block Left ventricular hypertrophy with repolarization abnormality ( Sokolow-Vences , Andrea product ) Prolonged QT Abnormal ECG When compared with ECG of 09-Dec-2024 16:37, No significant change was found Referred By: Sharda Smith Electronically Signed By: BRYSON MAURO
--- NOTE | 2025-02-09 07:47 | ED_ITS ---
HPI - General Adult General Chief complaint: Fall Stated complaint: Unwit mech Fall, LOC 3 sec, neck & back -thinner Time Seen by Provider: 02/09/25 06:56 Source: patient, EMS and old records reviewed Mode of arrival: EMS Limitations: other (poor historian) History of Present Illness ED Provider: MAGGIE HPI narrative: 60 yo male with PMH schizoaffective disorder, BPH, DM2, JUDY, HOCM, CHF, GERD, prolonged qt interval, HTN who comes in from intermediate stating he got up to use the bathroom this morning and felt short of breath - he then woke up on the floor after 10 seconds . He reports upper back/neck pain. He states pos LOC. He initially denied symptoms to the RN prior to fall but now states he got up and felt dyspnea. No chest pain. He asked me if should I have come here? you don't know what's wrong yet? 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) Location: head, neck and back Radiation: non-radiation Severity: mild Quality: aching Pain Consistency: constant Relieving factors: none Exacerbating factors: movement Associated symptoms: denies other symptoms (states he has no dyspnea or chest pain right now) Treatments prior to arrival: none Related Data Home Medications ?Medication ?Instructions ?Recorded ?Confirmed aluminum-mag hydroxide-simethicone 10 ml PO TID PRN Indigestion 05/27/24 11/26/24 200 mg-200 mg-20 mg/5 mL oral susp aspirin 81 mg tablet,delayed 81 mg PO DAILY 11/20/24 11/26/24 release atorvastatin 20 mg tablet 20 mg PO BEDTIME 11/20/24 11/26/24 empagliflozin 10 mg tablet 10 mg PO DAILY 11/20/24 11/26/24 (Jardiance) insulin glargine 100 unit/mL (3 15 unit subcut BEDTIME 11/20/24 11/26/24 mL) subcutaneous pen (Lantus Solostar U-100 Insulin) metoprolol succinate 100 mg 100 mg PO DAILY Hypertension 11/26/24 11/26/24 tablet,extended release 24 hr Previous Rx's ?Medication ?Instructions ?Recorded testosterone 1 % (50 mg/5 gram) 1 packet transdermal DAILY 30 days 07/02/24 transdermal gel packet #150 grams acetaminophen 325 mg tablet 650 mg (2 x 325 mg) PO Q6H PRN 11/11/24 (Tylenol) Pain (Scale Score 1-3) #60 tabs blood sugar diagnostic (OneTouch #100 ea 11/11/24 Verio test strips) blood-glucose meter (OneTouch #1 ea 11/11/24 Verio Flex Meter) lancets 33 gauge (OneTouch Delica #100 ea 11/11/24 Plus Lancet) linagliptin 5 mg tablet (Tradjenta) 5 mg PO DAILY 30 days #30 tabs 11/11/24 nitroglycerin 0.4 mg sublingual 0.4 mg sublingual Q5M PRN Chest 11/11/24 tablet Pain #14 tabs pen needle, diabetic 32 gauge x #100 ea 11/11/24 (BD Erica 2nd Gen Pen Needle) clozapine 100 mg tablet 100 mg PO BEDTIME 30 days #30 tabs 12/10/24 clozapine 25 mg tablet 25 mg PO BEDTIME 30 days #30 tabs 12/10/24 clozapine 50 mg tablet 50 mg PO BEDTIME 30 days #30 tabs 12/10/24 lurasidone 60 mg tablet 60 mg PO DAILY@1800 30 days #30 12/10/24 tabs nicotine (polacrilex) 4 mg buccal 4 mg buccal Q2H PRN Smoking 12/10/24 lozenge Cessation 30 days #108 ea polyethylene glycol 3350 17 gram 17 g PO DAILY constipation 30 days 12/10/24 oral powder packet #30 ea sennosides 8.6 mg-docusate sodium 2 tab PO DAILY constipation 30 12/10/24 50 mg tablet (Senna Plus) days #60 tabs tamsulosin 0.4 mg capsule 0.4 mg PO BEDTIME 30 days #30 caps 12/10/24 trazodone 50 mg tablet 50 mg PO BEDTIME PRN Insomnia 30 12/10/24 days #30 tabs albuterol sulfate 90 mcg/actuation 2 puff inhalation Q6H PRN 01/05/25 aerosol inhaler Shortness Of Breath Or Wheezing 30 days #1 inhaler cholecalciferol (vitamin D3) 25 25 mcg PO DAILY #90 tabs 01/28/25 mcg (1,000 unit) tablet omeprazole 20 mg capsule,delayed 40 mg (2 x 20 mg) PO BID@0630,1630 04/23/25 release #180 caps Allergies Allergy/AdvReac Type Severity Reaction Status Date / Time lithium [[place]] Allergy Severe Toxicity Verified 02/09/25 05:22 thiothixene Allergy Severe Swelling Verified 02/09/25 05:22 amoxicillin Allergy Mild Nose Bleed Verified 02/09/25 05:22 benztropine Allergy Unknown benztropine Verified 02/09/25 05:22 mesylate- unknown gabapentin [From NEURONTIN] Allergy Unknown Unknown Verified 02/09/25 05:22 fluphenazine [From Prolixin] Allergy Unknown Verified 02/09/25 05:22 barium sulfate AdvReac Intermediate Nausea and Verified 02/09/25 05:22 [BARIUM SULFATE] Vomiting haloperidol AdvReac Intermediate Muscle Verified 02/09/25 05:22 tension in legs diphenhydramine AdvReac Unknown urinary Verified 02/09/25 05:22 [From Benadryl] retention Review of Systems 2 Review of Systems: Constitutional : No Fever, No Chills ENT/Mouth : No sore throat, No Rhinorrhea, No Swallowing Difficulty Eyes: No Eye Pain, No Swelling, No Redness Cardiovascular : No Chest Pain, positive SOB, No Orthopnea, no Edema Respiratory : No Cough, No Sputum, No Wheezing, positive dyspnea Gastrointestinal : No Nausea, No Vomiting, No Diarrhea, No abdominal Pain, No Hematochezia, No Melena Genitourinary : No Dysuria, No Urinary Frequency, No Hematuria Musculoskeletal : pos joint pain, No Myalgias, pos neck and back pain Skin : No Skin Lesions, No rash Neuro : No Weakness, No Numbness, No Dizziness, No Headache All other systems reviewed and are negative [facility] Past Medical History Attestation statement: The following information was validated with the patient. Source: old records reviewed Medical History Nocturnal hypoxemia Schizoaffective disorder, bipolar type Diabetic neuropathy Type II diabetes with watermaster use of insulin BPH (benign prostatic hyperplasia) Diabetes mellitus Essential hypertension HOCM (hypertrophic obstructive cardiomyopathy) Coronary artery disease Osteoarthritis GERD without esophagitis Vitamin D deficiency Congestive heart failure COVID-19 Thought disorder Constipation COPD (chronic obstructive pulmonary disease) Smoker Diabetes mellitus Obesity (BMI 30-39.9) Pure hypercholesterolemia Prolonged QT interval Aggression Hypertension CHF (congestive heart failure) Cardiac arrhythmia Myocardial infarction Surgical History History of ankle surgery History of intestinal surgery History of transurethral resection of prostate Family History Family History Father Medical history unknown Mother Medical history unknown Sister Alive and well Social History Social History Household Members: Other Household Members Other:: intermediate residents Housing: House Housing Other:: [facility] Do you presently have visiting nurse or other home services: Yes Unable to assess alcohol history related to: Unknown Alcohol intake: current Alcohol intake frequency: a few times a month Alcohol type: beer Comment: 1:[address] Patient Tobacco Use Status: Former Tobacco user Tobacco use type: Cigarette Cigarette Packs Per Day: 0.5 Cigarettes Per Day: 10 Years Smoked: Many Smoked in Last 30 Days: No e-Cigarette/Vaping Use: Currently Using Second Hand Smoke Exposure: Yes Use of substances other than those prescribed or required for medical reasons: No Substance Use Type: Unknown Advance Directives: Yes Advance Directives on File: Yes Advance Directives Date on File: 01/14/24 Do you have a plan to hurt others: No Plan service: Yes (attended [employer] 1980) Current occupational status: disabled Sexual orientation: Straight/Heterosexual Cognitive needs: Yes Hearing needs: No Vision needs: Yes Physical Exam ED Vital Signs: Vital Signs - 24 hr 02/09/25 05:16 02/09/25 06:11 02/09/25 08:00 Temperature 98.9 F 99.1 F 97.6 F Pulse Rate 86 87 92 Respiratory Rate 18 16 16 Blood Pressure 145/90 H 123/73 129/80 Pulse Oximetry 97 95 91 L Oxygen Delivery Method Nasal Cannula Room Air Room Air 02/09/25 08:52 02/09/25 08:55 02/09/25 11:45 Temperature Pulse Rate 89 95 Respiratory Rate 25 H 18 Blood Pressure 129/80 134/66 Pulse Oximetry 95 Oxygen Delivery Method Room Air BMI result Body Mass Index 35.7 Appearance: Alert. Oriented X3. No acute distress. Eyes: Pupils equal, round and reactive to light. ENT: Pharynx normal. atraumatic Neck: mild C6-C7 ttp and upper thoracic back pain CVS: Normal heart rate and rhythm. Pulses normal. Respiratory: No respiratory distress. Breath sounds normal. Abdomen: Soft and nontender. atraumatic Skin: Skin warm and dry. Normal skin color. Normal skin turgor. Extremities: No lower extremity edema. L foot ttp along L toe but pulses intact and no deformity Neuro: Oriented X 3. No motor deficit. No sensory deficit. CN2-12 intact Course Course Course Narrative: BNP up given PO lasix and neb therapy ordered. Medications Administered Discontinued Medications Generic Name Dose Route Start Last Admin Trade Name Chelsy PRN Reason Stop Dose Admin Albuterol Sulfate 2.5 mg/ 0 mg 02/09/25 08:48 02/09/25 08:51 Albuterol/Ipratropium 3 ml INHALE 02/09/25 08:49 1 dose ONCE ONE Administration Furosemide 20 mg 02/09/25 08:36 02/09/25 08:55 Furosemide 20 Mg Tablet PO 02/09/25 08:37 20 mg ONCE ONE Administration Protocol Medical Decision Making Medical Decision Making [facility] Narrative: 60 yo male with PMH schizoaffective disorder, BPH, DM2, JUDY, HOCM, CHF, GERD, prolonged qt interval, HTN here with c/o fall and LOC this AM - no preceding chest pain and initially denied symptoms but now states he has chronic shortness of breath and felt short of breath. He has no signs of DVT/hypoxia/chest pain and has no symptoms now. He is a poor historian. He will need labs, xrays, EKG, CT head/cspine for trauma. Possible CHF, acs, low prob for PE current wells score is 0. Differential Diagnosis Differential Diagnoses: The differential diagnosis associated with the presentation includes anemia, CHF, dehydration, weakness, head trauma, back trauma, viral syndrome Admission/Observation Consideration of admission/observation: Escalation of care including admission/observation considered no hypoxia stable for DC has no symptoms repeat labs stable 95% on RA clear lungs he has no chest pain Lab Data [facility] Lab Attestation statement: I reviewed the patient's lab results. BNP at his baseline trop flat x 2 02/09/25 08:00 02/09/25 08:01 Labs: Lab Results 02/09/25 02/09/25 02/09/25 Range/Units 08:00 08:01 10:10 WBC 11.4 H (4.8-10.8) X10*3/uL RBC 4.82 (4.60-5.80) X10*6/uL Hgb 11.6 L (14.0-18.0) g/dl Hct 38.1 L (42.0-52.0) % MCV 79.0 L (80.0-98.0) fL MCH 24.1 L (27.0-33.0) pg MCHC 30.4 L (31.0-36.0) g/dl RDW 17.0 H (11.0-16.0) % Plt Count 169 (160-400) X10*3/uL MPV 11.1 (9.4-12.4) fL Immature Gran % (Auto) 0.4 (0.0-0.4) % Neut % (Auto) 83.1 H (45-73) % Lymph % (Auto) 8.3 L (20-40) % [place] % (Auto) 7.3 (2-11) % Eos % (Auto) 0.6 (0-4) % Baso % (Auto) 0.3 (0-2) % Lymph # (Auto) 0.9 L (1.2-4.9) X10*3/uL [place] # (Auto) 0.8 (0.1-1.2) X10*3/uL Eos # (Auto) 0.1 (0.0-0.4) X10*3/uL Baso # (Auto) 0.0 (0.0-0.2) X10*3/uL Abs Immat Gran (auto) 0.05 H (0.00-0.03) X10*3/uL Absolute Neuts (auto) 9.5 H (2.0-8.3) x10*3/uL Absolute Nucleated RBC 0.000 (0.0-0.012) X10*3/uL Nucleated RBC % (auto) 0.0 (0.0-0.2) /100WBC Hold Blue Top SEE NOTE Sodium 143 (135-145) mmol/L Potassium 3.7 D (3.3-5.1) mmol/L Chloride 108 (96-108) mmol/L Carbon Dioxide 24 (22-29) mmol/L Anion Gap 15 (12-20) BUN 22 H (9-16) mg/dL Creatinine 1.40 (0.5-1.4) mg/dL Estim Creat Clear Calc 65.5 Estimated GFR 52 Random Glucose 170 H (60-115) mg/dL Calcium 9.1 (8.4-10.2) mg/dL Magnesium 2.0 (1.6-2.6) mg/dL Total Bilirubin 0.3 (0.0-1.0) mg/dL Direct Bilirubin 0.1 (0.0-0.5) mg/dL AST 27 (5-37) U/L ALT 16 (0-40) U/L Alkaline Phosphatase 88 (39-117) U/L Total Creatine Kinase 437 H (38-174) U/L Troponin I High Sens 28.1 D 27.4 (<3.5-35.0) ng/L B-Natriuretic Peptide 593 H (<100) pg/mL Total Protein 6.8 (6.5-8.0) g/dL Albumin 3.9 (3.5-5.0) g/dL Influenza Type A (PCR) NEGATIVE (Negative) Influenza Type B (PCR) NEGATIVE (Negative) RSV RNA Qual (PCR) NEGATIVE (Negative) SARS-CoV-2 RNA (RT-PCR) NEGATIVE (Negative) Independent Interpretation I performed an independent interpretation of an: EKG, Plain X-Ray (no trauma has 3rd metatarsal fracture) and CT Scan (no trauma) Interpretation: Rate: 91 Rhythm: NSR [place]: normal Normal P waves. Normal LISA. Normal QRS complex. ST T wave : inverted t waves V4-V6, II, avF, I and aVL, no MOHINDER qTC: 492 prior studies: no change from prior The study has been interpreted contemporaneously by me. . Radiology Impression Discussion of test interpretation with radiology: I have reviewed the radiologist's reading. Independent Historian Clinical information obtained from an independent historian. History obtained from or confirmed by: EMS External Record Review External record reviewed: Inpatient record and Outpatient record Prescription Management I considered prescription management with: Other Discharge Plan Discharge Clinical Impression: Metatarsal bone fracture Qualifiers: Encounter type: initial encounter Metatarsal bone: third Fracture type: closed Fracture alignment: nondisplaced Laterality: left Qualified Code(s): S92.335A - Nondisplaced fracture of third metatarsal bone, left foot, initial encounter for closed fracture Neck strain Qualifiers: Encounter type: initial encounter Qualified Code(s): S16.1XXA - Strain of muscle, fascia and tendon at neck level, initial encounter Head injury Qualifiers: Encounter type: initial encounter Qualified Code(s): S09.90XA - Unspecified injury of head, initial encounter Patient Disposition: Home, Self-Care Instructions: Cervical Strain (ED), Foot Fracture in Adults (ED), Head Injury (ED) Additional Instructions: repeat labs normal for heart chest xray no fluid heart failure test at baseline xray of foot shows fracture - continue to use boot and crutches - follow up with orthopedics, limit weight bearing on foot given PO lasix and neb in ED rest and stay hydrated, return for any worsening symptoms or concerns you need to call orthopedics CT head, cspine negative thoracic spine negative no trauma seen Prescriptions: No Action albuterol sulfate 90 mcg/actuation HFA aerosol inhaler 2 puff inhalation Q6H PRN (Reason: Shortness Of Breath Or Wheezing) 30 Days Qty: 1 0RF omeprazole 20 mg capsule,delayed release(DR/EC) 40 mg PO BID@0630,1630 Qty: 180 0RF cholecalciferol (vitamin D3) 25 mcg (1,000 unit) tablet 25 mcg PO DAILY Qty: 90 0RF aspirin 81 mg tablet,delayed release (DR/EC) 81 mg PO DAILY atorvastatin 20 mg tablet 20 mg PO BEDTIME insulin glargine [Lantus Solostar U-100 Insulin] 100 unit/mL (3 mL) insulin pen 15 unit subcut BEDTIME Jardiance 10 mg tablet 10 mg PO DAILY alum-mag hydroxide-simeth 200-200-20 mg/5 mL Suspension 10 ml PO TID PRN (Reason: Indigestion) Rx Instructions: administer between meals and at bedtime metoprolol succinate 100 mg tablet extended release 24 hr 100 mg PO DAILY Protocol: Hold for SBP/HR < HOLD for SBP < : 90 HOLD for HR < : 60 tamsulosin 0.4 mg Capsule 0.4 mg PO BEDTIME 30 Days Qty: 30 0RF clozapine 100 mg tablet 100 mg PO BEDTIME 30 Days Qty: 30 0RF Rx Instructions: take with 50mg and 25mg tab clozapine 50 mg tablet 50 mg PO BEDTIME 30 Days Qty: 30 0RF Rx Instructions: take with 100mg and 25mg tab clozapine 25 mg tablet 25 mg PO BEDTIME 30 Days Qty: 30 0RF Rx Instructions: take with 50mg and 100mg tab lurasidone 60 mg tablet 60 mg PO DAILY@1800 30 Days Qty: 30 0RF Rx Instructions: must administer with food (at least 350 calories) trazodone 50 mg Tablet 50 mg PO BEDTIME PRN (Reason: Insomnia) 30 Days Qty: 30 0RF polyethylene glycol 3350 17 gram powder in packet 17 g PO DAILY 30 Days Qty: 30 0RF Rx Instructions: hold for loose stool sennosides-docusate sodium [Senna Plus] 8.6-50 mg tablet 2 tab PO DAILY 30 Days Qty: 60 0RF Rx Instructions: hold for loose stool nicotine (polacrilex) 4 mg Lozenge 4 mg buccal Q2H PRN (Reason: Smoking Cessation) 30 Days Qty: 108 0RF Tradjenta 5 mg tablet 5 mg PO DAILY 30 Days Qty: 30 0RF (DME) lancets [OneTouch Delica Plus Lancet] 33 gauge [facility] [place] See Rx Instructions .ROUTE .MEDSUPPLY Qty: 100 5RF Rx Instructions: Use as directed to check blood glucose twice daily. nitroglycerin 0.4 mg tablet, sublingual 0.4 mg SUBLINGUAL Q5M PRN (Reason: Chest Pain) Qty: 14 0RF Rx Instructions: do not exceed 3 doses per episode (DME) pen needle, diabetic [BD Erica 2nd Gen Pen Needle] 32 gauge x 5/32 needle See Rx Instructions .ROUTE .MEDSUPPLY Qty: 100 11RF Rx Instructions: As directed to administer lantus insulin once daily (DME) OneTouch Verio test strips Strip See Rx Instructions .ROUTE .MEDSUPPLY Qty: 100 5RF Rx Instructions: Use as directed to check blood glucose twice daily. (DME) blood-glucose meter [OneTouch Verio Flex meter] [facility] [place] See Rx Instructions .ROUTE .MEDSUPPLY Qty: 1 0RF Rx Instructions: Use as directed to check blood glucose twice daily for Type II diabetes mellitus. acetaminophen [Tylenol] 325 mg tablet 650 mg PO Q6H PRN (Reason: Pain (Scale Score 1-3)) Qty: 60 2RF testosterone 1 % (50 mg/5 gram) gel in packet 1 packet transdermal DAILY 30 Days Qty: 150 5RF Referrals: [facility] [place] [facility] [Provider Group] (call to schedule) Print Language: [place] Citizen
[2025-02-09 08:06] LABS: MANUAL DIFF FLAG NO
[2025-02-09 08:08] LABS: Basophils Percent Auto 0.3 % (0-2); Eosinophils Absolute Auto 0.1 X10*3/uL (0.0-0.4); Eosinophils Percent Auto 0.6 % (0-4); Hematocrit 38.1 % (42.0-52.0); Hemoglobin 11.6 g/dl (14.0-18.0); Imm Gran Abs Auto 0.05 X10*3/uL (0.00-0.03); Imm Gran Pct Auto 0.4 % (0.0-0.4); Lymphocytes Absolute Auto 0.9 X10*3/uL (1.2-4.9); Lymphocytes Percent Auto 8.3 % (20-40); Mean Corpuscular HGB Conc 30.4 g/dl (31.0-36.0); Mean Corpuscular Hemoglobin 24.1 pg (27.0-33.0); Mean Platelet Volume 11.1 fL (9.4-12.4); Monocytes Absolute Auto 0.8 X10*3/uL (0.1-1.2); Monocytes Percent Auto 7.3 % (2-11); Neutrophils Absolute Auto 9.5 x10*3/uL (2.0-8.3); Neutrophils Percent Auto 83.1 % (45-73); Platelet Count 169 X10*3/uL (160-400); Red Blood Count 4.82 X10*6/uL (4.60-5.80); White Blood Count 11.4 X10*3/uL (4.8-10.8)
--- NOTE | 2025-02-09 08:22 | PC.NURSE ---
Labs completed. Resting quietly on the stretcher answering questions appropriately. Transferred to xray on stretcher for T spine and left foot xray. Pain to dorsal aspect of left foot just behind metatarsals. Good CMS
[2025-02-09 08:24] LABS: Alanine Aminotransferase 16 U/L (0-40); Albumin Level 3.9 g/dL (3.5-5.0); Alkaline Phosphatase 88 U/L (39-117); Anion Gap 15 (12-20); Aspartate Amino Transferase 27 U/L (5-37); Bilirubin Direct 0.1 mg/dL (0.0-0.5); Bilirubin Total 0.3 mg/dL (0.0-1.0); Blood Urea Nitrogen 22 mg/dL (9-16); Calcium 9.1 mg/dL (8.4-10.2); Carbon Dioxide 24 mmol/L (22-29); Chloride 108 mmol/L (96-108); Creatinine Clr Calc Pharmacy 65.5; Estimated Glomerular Filt Rate 52; Glucose Random 170 mg/dL (60-115); Potassium 3.7 mmol/L (3.3-5.1); Sodium 143 mmol/L (135-145); Total Protein 6.8 g/dL (6.5-8.0)
[2025-02-09 08:29] LABS: B Type Natriuretic Peptide 593 pg/mL (<100)
[2025-02-09 08:31] LABS: Troponin-I High Sensitivity 28.1 ng/L (<3.5-35.0)
[2025-02-09 08:43] LABS: Influenza A PCR NEGATIVE (Negative); Influenza B PCR NEGATIVE (Negative); Resp Syncy Virus RNA Qual PCR NEGATIVE (Negative); SARS COV2 PCR INHOUSE NEGATIVE (Negative)
[2025-02-09] MEDS: Albuterol Sulfate 2.5 MG, Albuterol/Iprat 2.5/0.5MG 3 ML 3 ML INHALE (08:51)
[2025-02-09] MEDS: Furosemide 20 MG TABLET PO (08:55)
--- NOTE | 2025-02-09 09:04 | PC.NURSE ---
Discussed with Dr. Smith. Trop to be done every 2 hours. First drawn at 0801. Lasix given po. Male purewick applied to capture accurate I+O
--- NOTE | 2025-02-09 09:13 | PC.NURSE ---
Broncho dilator treatment initiated by RT. Completed at this time
[2025-02-09 10:38] LABS: Troponin-I High Sensitivity 27.4 ng/L (<3.5-35.0)
--- NOTE | 2025-02-09 12:13 | PC.NURSE ---
this rn spoke with group staff, okay to send patient with crutches
== END 2025-02-09 14:15 | disposition home or self-care (01) ==
PROVIDERS: Emergency Provider Emergency Medicine; PCP Internal Medicine
DX: S92.335A Nondisplaced fracture of third metatarsal bone, left foot, initial encounter for closed fracture (principal); S16.1XXA Strain of muscle, fascia and tendon at neck level, initial encounter; S09.90XA Unspecified injury of head, initial encounter; S29.9XXA Unspecified injury of thorax, initial encounter; R06.02 Shortness of breath; M54.50 Low back pain, unspecified; R94.31 Abnormal electrocardiogram [ECG] [EKG]; I44.7 Left bundle-branch block, unspecified; R51.9 Headache, unspecified; M54.6 Pain in thoracic spine; M54.2 Cervicalgia; M79.672 Pain in left foot; I10 Essential (primary) hypertension; E11.9 Type 2 diabetes mellitus without complications; W19.XXXA Unspecified fall, initial encounter; Y93.9 Activity, unspecified; Y92.002 Bathroom of unspecified non-institutional (private) residence as the place of occurrence of the external cause; Y99.8 Other external cause status; Z03.818 Encounter for observation for suspected exposure to other biological agents ruled out; Z79.899 Other long term (current) 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; Z87.891 Personal history of nicotine dependence
CPT/HCPCS: 0241U; 36415; 70450; 71045; 72072; 72125; 73630; 80048; 80076; 82550; 83735; 83880; 84484; 85025; 93005; 94640; 99285

== ENCOUNTER → 2025-02-09 05:45 | Outpatient (BNV) | payer MEDICARE, MEDICAID, SELFPAY | PROVIDERS: Emergency Provider Emergency Medicine; PCP Internal Medicine; Visit Provider Radiology Diagnostic Radiology | DX: M50.30 Other cervical disc degeneration, unspecified cervical region (principal); M54.2 Cervicalgia; M47.814 Spondylosis without myelopathy or radiculopathy, thoracic region; I51.7 Cardiomegaly; S92.335A Nondisplaced fracture of third metatarsal bone, left foot, initial encounter for closed fracture | CPT/HCPCS: 70450; 71045; 72072; 72125 ==

== ENCOUNTER → 2025-02-09 07:26 | Outpatient (BNV) | payer MEDICARE, MEDICAID, SELFPAY | PROVIDERS: Emergency Provider Emergency Medicine; PCP Internal Medicine; Visit Provider Internal Medicine | DX: I44.7 Left bundle-branch block, unspecified (principal); I51.7 Cardiomegaly | CPT/HCPCS: 93010 ==

== ENCOUNTER 2025-02-12 22:45 | Emergency (ER) | payer MEDICARE, MEDICAID, SELFPAY ==
--- NOTE | ~2025-02-12 | CT_ITS ---
CLINICAL HISTORY: fall CT head without contrast Comparison: CT/SR - CT HEAD/BRAIN WO IV CON - 02/09/25 05:47 EDT Findings: No intra-axial mass, midline shift, hydrocephalus, or acute hemorrhage. No significant atrophy-like change or white matter disease. There is no sinus or mastoid fluid. The orbits are unremarkable. No skull fracture. IMPRESSION: 1. No acute intracranial findings. This document has been electronically signed by: Chava Apodaca MD on 02/12/2025 23:58:41
[2025-02-12 22:50] VITALS: BP 147/85; PULSE 78; RESP 18; TEMP 36.7; O2SAT 96
[2025-02-12 22:55] VITALS: BP 142/100; PULSE 81; O2SAT 96
[2025-02-12 22:59] VITALS: BP 147/85; PULSE 78; RESP 18; TEMP 36.7; O2SAT 96; BMI 25.9
--- NOTE | 2025-02-12 23:00 | ED.FALL ---
HPI - Fall General Chief Complaint: Fall Stated Complaint: unwitnessed fall w/ head strike, no loc Time Seen by Provider: 02/12/25 22:51 Source: patient Mode of arrival: EMS Limitations: no limitations History of Present Illness ED Provider: Collette HPI Narrative: 60 yo male with PMH schizoaffective disorder, BPH, DM2, JUDY, HOCM, CHF, GERD, prolonged qt interval of 490 msec, HTN was seen here on 02/09 for mechanical fall comes here for fdc for another fall says that he was in the bathroom trying to get up and lost balance and fell no significant head injury no loss of consciousness no chest pain or palpitation patient been here multiple times for similar reasons was seen here on 02/09 workup was negative patient has stable vitals at this time no significant head injury no neck pain no other injuries Related Data Home Medications ?Medication ?Instructions ?Recorded ?Confirmed aluminum-mag hydroxide-simethicone 10 ml PO TID PRN Indigestion 05/27/24 11/26/24 200 mg-200 mg-20 mg/5 mL oral susp aspirin 81 mg tablet,delayed 81 mg PO DAILY 11/20/24 11/26/24 release atorvastatin 20 mg tablet 20 mg PO BEDTIME 11/20/24 11/26/24 empagliflozin 10 mg tablet 10 mg PO DAILY 11/20/24 11/26/24 (Jardiance) insulin glargine 100 unit/mL (3 15 unit subcut BEDTIME 11/20/24 11/26/24 mL) subcutaneous pen (Lantus Solostar U-100 Insulin) metoprolol succinate 100 mg 100 mg PO DAILY Hypertension 11/26/24 11/26/24 tablet,extended release 24 hr Previous Rx's ?Medication ?Instructions ?Recorded testosterone 1 % (50 mg/5 gram) 1 packet transdermal DAILY 30 days 07/02/24 transdermal gel packet #150 grams acetaminophen 325 mg tablet 650 mg (2 x 325 mg) PO Q6H PRN 11/11/24 (Tylenol) Pain (Scale Score 1-3) #60 tabs blood sugar diagnostic (Spin Ink LTDTouch #100 ea 11/11/24 Verio test strips) blood-glucose meter (OneTouch #1 ea 11/11/24 Verio Flex Meter) lancets 33 gauge (OneTouch Delica #100 ea 11/11/24 Plus Lancet) linagliptin 5 mg tablet (Tradjenta) 5 mg PO DAILY 30 days #30 tabs 11/11/24 nitroglycerin 0.4 mg sublingual 0.4 mg sublingual Q5M PRN Chest 11/11/24 tablet Pain #14 tabs pen needle, diabetic 32 gauge x #100 ea 11/11/24 (BD Erica 2nd Gen Pen Needle) clozapine 100 mg tablet 100 mg PO BEDTIME 30 days #30 tabs 12/10/24 clozapine 25 mg tablet 25 mg PO BEDTIME 30 days #30 tabs 12/10/24 clozapine 50 mg tablet 50 mg PO BEDTIME 30 days #30 tabs 12/10/24 lurasidone 60 mg tablet 60 mg PO DAILY@1800 30 days #30 12/10/24 tabs nicotine (polacrilex) 4 mg buccal 4 mg buccal Q2H PRN Smoking 12/10/24 lozenge Cessation 30 days #108 ea polyethylene glycol 3350 17 gram 17 g PO DAILY constipation 30 days 12/10/24 oral powder packet #30 ea sennosides 8.6 mg-docusate sodium 2 tab PO DAILY constipation 30 12/10/24 50 mg tablet (Senna Plus) days #60 tabs tamsulosin 0.4 mg capsule 0.4 mg PO BEDTIME 30 days #30 caps 12/10/24 trazodone 50 mg tablet 50 mg PO BEDTIME PRN Insomnia 30 12/10/24 days #30 tabs albuterol sulfate 90 mcg/actuation 2 puff inhalation Q6H PRN 01/05/25 aerosol inhaler Shortness Of Breath Or Wheezing 30 days #1 inhaler cholecalciferol (vitamin D3) 25 25 mcg PO DAILY #90 tabs 01/28/25 mcg (1,000 unit) tablet omeprazole 20 mg capsule,delayed 40 mg (2 x 20 mg) PO BID@0630,1630 01/28/25 release #180 caps Allergies Allergy/AdvReac Type Severity Reaction Status Date / Time lithium [Torreon] Allergy Severe Toxicity Verified 02/12/25 23:01 thiothixene Allergy Severe Swelling Verified 02/12/25 23:01 amoxicillin Allergy Mild Nose Bleed Verified 02/12/25 23:01 benztropine Allergy Unknown benztropine Verified 02/12/25 23:01 mesylate- unknown gabapentin [From NEURONTIN] Allergy Unknown Unknown Verified 02/12/25 23:01 fluphenazine [From Prolixin] Allergy Unknown Verified 02/12/25 23:01 barium sulfate AdvReac Intermediate Nausea and Verified 02/12/25 23:01 [BARIUM SULFATE] Vomiting haloperidol AdvReac Intermediate Muscle Verified 02/12/25 23:01 tension in legs diphenhydramine AdvReac Unknown urinary Verified 02/12/25 23:01 [From Benadryl] retention Review of Systems Review of Systems: Yes all other systems are reviewed and are negative [facility] Past Medical History Medical History Nocturnal hypoxemia Schizoaffective disorder, bipolar type Diabetic neuropathy Type II diabetes with long term care 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 use of insulin BPH (benign prostatic hyperplasia) Diabetes mellitus Essential hypertension HOCM (hypertrophic obstructive cardiomyopathy) Coronary artery disease Osteoarthritis GERD without esophagitis Vitamin D deficiency Congestive heart failure COVID-19 Thought disorder Constipation COPD (chronic obstructive pulmonary disease) Smoker Diabetes mellitus Obesity (BMI 30-39.9) Pure hypercholesterolemia Prolonged QT interval Aggression Hypertension CHF (congestive heart failure) Cardiac arrhythmia Myocardial infarction Surgical History History of ankle surgery History of intestinal surgery History of transurethral resection of prostate Family History Family History Father Medical history unknown Mother Medical history unknown Sister Alive and well Social History Social History Household Members: Other Household Members Other:: fdc residents Housing: House Housing Other:: [facility] Do you presently have visiting nurse or other home services: Yes Unable to assess alcohol history related to: Unknown Alcohol intake: current Alcohol intake frequency: a few times a month Alcohol type: beer Comment: 1:[address] Patient Tobacco Use Status: Former Tobacco user Tobacco use type: Cigarette Cigarette Packs Per Day: 0.5 Cigarettes Per Day: 10 Years Smoked: Many e-Cigarette/Vaping Use: Currently Using Second Hand Smoke Exposure: Yes Substance Use Type: Unknown Advance Directives: Yes Advance Directives on File: Yes Advance Directives Date on File: 01/14/24 service: Yes (attended [employer]) Current occupational status: disabled Sexual orientation: Straight/Heterosexual Cognitive needs: Yes Hearing needs: No Vision needs: Yes Physical Exam Vital Signs: Vital Signs: Last Vital Signs Temp 0 F L 02/13/25 02:45 Pulse 82 02/13/25 02:45 Resp 18 02/13/25 02:45 BP 133/78 02/13/25 02:45 Pulse Ox 96 02/12/25 22:59 O2 Del Method Room Air 02/12/25 22:59 BMI result Body Mass Index 25.9 Appearance: Alert. Oriented X3. No acute distress. Eyes: PERRLA, No Nystagmus ENT: Pharynx normal. Oral Mucosa moist atraumatic normocephalic Neck: Normal inspection. Neck supple. no midline tenderness CVS: Normal heart rate and rhythm. Pulses normal. Respiratory: No respiratory distress. Equal air entry bilateral, no wheezing/rales/rhonchi Abdomen: Soft and nontender. Bowel sounds are present, no mass palpable, no CVA tenderness Skin: Skin warm and dry. Normal skin color. Normal skin turgor. Extremities: No lower extremity edema. No calf tenderness Neuro: Oriented X 3. No motor deficit. No sensory deficit.No cerebellar signs , cranial nerves II-XII intact Medical Decision Making Medical Decision Making MDM Narrative: patient has frequent falls recent workup was negative CT scan head his again negative sent back to have more close watch patient has stable vitals Differential Diagnosis Differential Diagnoses: The differential diagnosis associated with the presentation includes subarachnoid bleed /subdural hematoma Independent Interpretation I performed an independent interpretation of an: EKG and CT Scan Interpretation: normal sinus rhythm left ventricular hypertrophy QT interval [address]-T no acute ischemia Radiology Impression Discussion of test interpretation with radiology: I have reviewed the radiologist's reading. Discharge Plan Discharge Clinical Impression: Fall Patient Disposition: Home, Self-Care Instructions: Fall Prevention for Older Adults (ED) Additional Instructions: CT scan of the head is negative for acute care and cautions as advised Prescriptions: No Action albuterol sulfate 90 mcg/actuation HFA aerosol inhaler 2 puff inhalation Q6H PRN (Reason: Shortness Of Breath Or Wheezing) 30 Days Qty: 1 0RF omeprazole 20 mg capsule,delayed release(DR/EC) 40 mg PO BID@0630,1630 Qty: 180 0RF cholecalciferol (vitamin D3) 25 mcg (1,000 unit) tablet 25 mcg PO DAILY Qty: 90 0RF aspirin 81 mg tablet,delayed release (DR/EC) 81 mg PO DAILY atorvastatin 20 mg tablet 20 mg PO BEDTIME insulin glargine [Lantus Solostar U-100 Insulin] 100 unit/mL (3 mL) insulin pen 15 unit subcut BEDTIME Jardiance 10 mg tablet 10 mg PO DAILY alum-mag hydroxide-simeth 200-200-20 mg/5 mL Suspension 10 ml PO TID PRN (Reason: Indigestion) Rx Instructions: administer between meals and at bedtime metoprolol succinate 100 mg tablet extended release 24 hr 100 mg PO DAILY Protocol: Hold for SBP/HR < HOLD for SBP < : 90 HOLD for HR < : 60 tamsulosin 0.4 mg Capsule 0.4 mg PO BEDTIME 30 Days Qty: 30 0RF clozapine 100 mg tablet 100 mg PO BEDTIME 30 Days Qty: 30 0RF Rx Instructions: take with 50mg and 25mg tab clozapine 50 mg tablet 50 mg PO BEDTIME 30 Days Qty: 30 0RF Rx Instructions: take with 100mg and 25mg tab clozapine 25 mg tablet 25 mg PO BEDTIME 30 Days Qty: 30 0RF Rx Instructions: take with 50mg and 100mg tab lurasidone 60 mg tablet 60 mg PO DAILY@1800 30 Days Qty: 30 0RF Rx Instructions: must administer with food (at least 350 calories) trazodone 50 mg Tablet 50 mg PO BEDTIME PRN (Reason: Insomnia) 30 Days Qty: 30 0RF polyethylene glycol 3350 17 gram powder in packet 17 g PO DAILY 30 Days Qty: 30 0RF Rx Instructions: hold for loose stool sennosides-docusate sodium [Senna Plus] 8.6-50 mg tablet 2 tab PO DAILY 30 Days Qty: 60 0RF Rx Instructions: hold for loose stool nicotine (polacrilex) 4 mg Lozenge 4 mg buccal Q2H PRN (Reason: Smoking Cessation) 30 Days Qty: 108 0RF Tradjenta 5 mg tablet 5 mg PO DAILY 30 Days Qty: 30 0RF (DME) lancets [OneTouch Delica Plus Lancet] 33 gauge misc See Rx Instructions .ROUTE .MEDSUPPLY Qty: 100 5RF Rx Instructions: Use as directed to check blood glucose twice daily. nitroglycerin 0.4 mg tablet, sublingual 0.4 mg SUBLINGUAL Q5M PRN (Reason: Chest Pain) Qty: 14 0RF Rx Instructions: do not exceed 3 doses per episode (DME) pen needle, diabetic [BD Erica 2nd Gen Pen Needle] 32 gauge x 5/32 needle See Rx Instructions .ROUTE .MEDSUPPLY Qty: 100 11RF Rx Instructions: As directed to administer lantus insulin once daily (DME) OneTouch Verio test strips Strip See Rx Instructions .ROUTE .MEDSUPPLY Qty: 100 5RF Rx Instructions: Use as directed to check blood glucose twice daily. (DME) blood-glucose meter [OneTouch Verio Flex meter] [facility] See Rx Instructions .ROUTE .MEDSUPPLY Qty: 1 0RF Rx Instructions: Use as directed to check blood glucose twice daily for Type II diabetes mellitus. acetaminophen [Tylenol] 325 mg tablet 650 mg PO Q6H PRN (Reason: Pain (Scale Score 1-3)) Qty: 60 2RF testosterone 1 % (50 mg/5 gram) gel in packet 1 packet transdermal DAILY 30 Days Qty: 150 5RF Interventions: ED Discharge Assessment Last Done: 02/13/25 02:45 Discharge Date/Time: 02/13/25 02:52 Print Language: Kinyarwanda
--- NOTE | 2025-02-12 23:02 | MHC.EDTECH ---
this tech assumed care of the pt @[id number]
--- NOTE | 2025-02-12 23:08 | ECG_ITS ---
Test Reason : FALL Blood Pressure : */* mmHG Vent. Rate : 75 BPM Atrial Rate : 75 BPM P-R Int : 170 ms QRS Dur : 114 ms QT Int : 442 ms P-R-T Axes : 67 27 174 degrees QTcB Int : 493 ms Normal sinus rhythm Left ventricular hypertrophy with repolarization abnormality ( Sokolow-Vences ) Prolonged QT Abnormal ECG When compared with ECG of 09-Feb-2025 07:41, No significant changes seen Referred By: Jose Rowan Electronically Signed By: BRYSON MAURO
[2025-02-12 23:25] VITALS: BP 139/81; PULSE 76
[2025-02-12 23:27] VITALS: BP 140/72; PULSE 78
[2025-02-12 23:29] VITALS: BP 133/78; PULSE 82
--- NOTE | 2025-02-12 23:34 | MHC.EDTECH ---
at this time this tech attempted to change number operator pt into hospital gown, the pt refused and wanted to remain in his street clothes. Pt allowed me to perform an EKG and a set of orthostatic VS, which were stable, the pt did not report any episodes of syncope during position changes. EKG report given to provider and ortho results reported to MD. Pt was given warm blanket and call dickson for safety.
--- NOTE | 2025-02-13 01:49 | PC.NURSE ---
Spoke to direct care personal Niranjan from [facility]. Pt will be transported back via ambulance.
[2025-02-13 02:43] VITALS: BP 133/78; PULSE 82; RESP 18; TEMP -17.7; TEMP 0
[2025-02-13 02:45] VITALS: BP 133/78; PULSE 82; RESP 18; TEMP -17.7; TEMP 0
== END 2025-02-13 02:52 | disposition home or self-care (01) ==
PROVIDERS: Emergency Provider Internal Medicine
DX: R51.9 Headache, unspecified (principal); R29.6 Repeated falls; Z91.81 History of falling
CPT/HCPCS: 70450; 93005; 99284

== ENCOUNTER → 2025-02-12 23:08 | Outpatient (BNV) | payer MEDICARE, MEDICAID, SELFPAY | PROVIDERS: Emergency Provider Internal Medicine; Visit Provider Student in an Organized Health Care Education/Training Program | DX: R29.6 Repeated falls (principal) | CPT/HCPCS: 70450 ==

== ENCOUNTER → 2025-02-12 23:08 | Outpatient (BNV) | payer MEDICARE, MEDICAID, SELFPAY | PROVIDERS: Emergency Provider Internal Medicine; Visit Provider Internal Medicine | DX: I51.7 Cardiomegaly (principal) | CPT/HCPCS: 93010 ==

== ENCOUNTER 2025-02-17 21:07 | Emergency (ER) | payer MEDICARE, MEDICAID, SELFPAY ==
--- NOTE | ~2025-02-17 | CT_ITS ---
CLINICAL HISTORY: trauma CT head without contrast Comparison: CT/SR - CT HEAD/BRAIN WO IV CON - 02/12/25 23:11 EDT Findings: Examination degraded by diffuse artifact. No intra-axial mass, midline shift, hydrocephalus, or acute hemorrhage. Mild cortical atrophy. Mild supratentorial periventricular nonspecific white matter hypodensities most suggestive of chronic small-vessel ischemic changes. Atherosclerotic vascular disease There is no sinus or mastoid fluid. Postoperative changes of bilateral globes. There is no acute skull fracture. IMPRESSION: 1. No acute intracranial findings. This document has been electronically signed by: Marci Dutta MD on 02/18/2025 00:57:29
[2025-02-17 21:11] VITALS: BP 138/90; PULSE 94; O2SAT 95
[2025-02-17 21:17] VITALS: BP 137/71; PULSE 84; RESP 16; TEMP 37.2; O2SAT 97
--- NOTE | 2025-02-17 21:17 | ECG_ITS ---
Test Reason : fall Blood Pressure : */* mmHG Vent. Rate : 83 BPM Atrial Rate : 83 BPM P-R Int : 174 ms QRS Dur : 112 ms QT Int : 420 ms P-R-T Axes : 66 33 188 degrees QTcB Int : 493 ms Normal sinus rhythm Left ventricular hypertrophy with repolarization abnormality ( Sokolow-Vences ) Prolonged QT Abnormal ECG When compared with ECG of 12-Feb-2025 23:22, No significant change was found Referred By: Generic ED Physician Electronically Signed By: JEREMIAS MARTIN MD
[2025-02-17 21:19] VITALS: BMI 34.2
--- OUTSIDE RECORDS SUMMARY | 2025-02-17 21:41 | XMS_ITS | Clinical Summary ---
Author Organization [facility] Address [address] [address] Phone Care Team Providers Care Customer Care Voice Consultant Name Role Phone Regan Hogue MD Primary Care Provider [phone] Allergies Active Allergy Reactions Criticality Noted Date Comments Diphenhydramine Other (see comments) 12/19/2023 Haloperidol Other (see comments) 12/19/2023 [place] Other (see comments) 12/19/2023 Thiothixene (Tiotixene) Other [...] Schizoaffective disorder, not otherwise specifie d 12/20/2023 [place] adverse reaction <Sequela> 12/20/2023 Acute nontraumatic kidney injury 12/20/2023 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 12/20/2023 Atherosclerotic heart diseas e of ewiiaapaayp coronary artery without angina pectoris, not otherwise specified 12/20/2023 Encounters Date Type Department Care Team Description 12/18/2024 Documentation Only [facility] [address] [address] Igor Mane MD No Show (No show. No labs) from Last 3 Months Family History Relation Status Comments Father Mother Social History Tobacco Use Types Packs/Day Years Used Date Smoking Tobacco: Every Day Cigarettes 0.5 41.4 Started: 1984 Smokeless Tobacco: Never Tobacco Cessation:Ready [...] age to complete this topic Care Teams Customer Care Voice Consultant Relationship Specialty Start Date End Date Regan Hogue MD [address] [place] [address] PCP - General Internal Medicine 12/20/23
--- OUTSIDE RECORDS SUMMARY | 2025-02-17 21:41 | XMS_ITS | Encounter Summary ---
Author Organization [facility] Address [address] [place] [address] Care Team Providers Care Head Sawyer Automatic Name Role Phone Regan Hogue MD Primary Care Provider [phone] Encounter Details Date Type Department Care Team (Late st Contact Info) Description 09/09/2024 Lab Requisition [facility] - Main Lab [address] [facility] [employer] [place] [address] Freeman Cerna MD [address] Other long term care pharmacist (current) 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 Social History Tobacco Use [...] DIFFERENTIAL Routine 09/09/2024 6:39 AM EST Other long term care pharmacist (current) 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 CBC AND DIFFERENTIAL Routine 09/09/2024 6:39 AM EST Other fpc (current) 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 documented in this encounter Results * (ABNORMAL) CBC auto differential (09/09/2024 6:39 AM EST) [facility] Signature WBC 7.0 4.8 - 10.8 K/[facility] LAB HEMETOLOGY METHOD 09/09/2024 10:01 AM EST [facility] LAB RBC 4.20(L) 4.50 - 5.50 M/[facility] LAB HEMETOLOGY METHOD 09/09/2024 10:01 AM [facility] LAB Hemoglobin 11.2(L) 13.5 - 17.5 g/dL LAB HEMETOLOGY METHOD 09/09/2024 10:01 AM [facility] LAB Hematocrit 37.2(L) 42.0 - 54.0 % LAB HEMETOLOGY METHOD 09/09/2024 10:01 AM [facility] LAB MCV 88.2 79.0 - 98.0 FL LAB HEMETOLOGY METHOD 09/09/2024 10:01 AM [facility] LAB MCH 26.5(L) 27.0 - 32.0 pcg LAB HEMETOLOGY METHOD 09/09/2024 10:01 AM [facility] LAB MCHC 30.1(L) 32.0 - 37.0 g/dL LAB HEMETOLOGY METHOD 09/09/2024 10:01 AM [facility] LAB RDW 15.7(H) 11.0 - 15.0 % LAB HEMETOLOGY METHOD 09/09/2024 10:01 AM [facility] LAB Platelets 147 130 - 400 K/mcL LAB HEMETOLOGY METHOD 09/09/2024 10:01 AM [facility] LAB MPV 12.8(H) 7.0 - 11.0 FL LAB HEMETOLOGY METHOD 09/09/2024 10:01 AM [facility] LAB NRBC 0.0 <1.0 % LAB HEMETOLOGY METHOD 09/09/2024 10:01 AM [facility] LAB NRBC Absolute 0.00 <0.10 K/mcL LAB HEMETOLOGY METHOD 09/09/2024 10:01 AM [facility] LAB Neutrophils Relative 72.6 % LAB HEMETOLOGY METHOD 09/09/2024 10:01 AM [facility] LAB Lymphocytes Relative 15.3 % LAB HEMETOLOGY METHOD 09/09/2024 10:01 AM [facility] LAB Monocytes Relative 8.9 % LAB HEMETOLOGY METHOD 09/09/2024 10:01 AM [facility] LAB Eosinophils Relative 2.0 % LAB HEMETOLOGY METHOD 09/09/2024 10:01 AM [facility] LAB Basophils Relative 0.6 % LAB HEMETOLOGY METHOD 09/09/2024 10:01 AM [facility] LAB Immature Granulocytes Relative 0.6 % LAB HEMETOLOGY METHOD 09/09/2024 10:01 AM [facility] LAB Neutrophils Absolute 5.08 1.50 - 7.00 K/mcL LAB HEMETOLOGY METHOD 09/09/2024 10:01 AM [facility] LAB Lymphocytes Absolute 1.07 1.00 - 5.00 K/mcL LAB HEMETOLOGY METHOD 09/09/2024 10:01 AM [facility] LAB Monocytes Absolute 0.62 0.20 - 1.00 K/mcL LAB HEMETOLOGY METHOD 09/09/2024 10:01 AM EST [facility] LAB Eosinophils Absolute 0.14 0.00 - 0.50 K/mcL LAB HEMETOLOGY METHOD 09/09/2024 10:01 AM [facility] LAB Basophils Absolute 0.04 0.00 - 0.20 K/mcL LAB HEMETOLOGY METHOD 09/09/2024 10:01 AM [facility] LAB Immature Granulocytes Absolute 0.04(H) 0.00 - 0.03 K/mcL LAB HEMETOLOGY METHOD 09/09/2024 10:01 AM [facility] LAB Blood Venous blood specimen / Unknown Venipuncture / Unknown 09/09/2024 6:39 AM EST 09/09/2024 9:46 AM EST us Freeman Cerna MD LAB BLOOD ORDERABLES Final Resul t [facility] LAB [address] [place], [place] [address] [phone] documented in this encounter Visit Diagnoses Diagnosis Other long term care pharmacist (current) 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 documented in this encounter Care Teams Head Sawyer Automatic Relationship Specialty Start Date End Date Regan Hogue MD [address] [place] [address] Dr [address] [place] PCP - General Internal Medicine 11/12/24 documented as of this encounter
--- OUTSIDE RECORDS SUMMARY | 2025-02-17 21:41 | XMS_ITS | Encounter Summary ---
Author Organization [facility] Address [address] [place] [address] Care Team Providers Care Assistant Center Director Name Role Phone Regan Hogue MD Primary Care Provider Encounter Details Date Type Department Care Team (Late st Contact Info) Description 12/30/2024 Lab Requisition [facility] - Main Lab [address] [facility] [place] [address] Freeman Cerna MD [address] Other ferry terminal agent (current) 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 Social History Tobacco Use [...] DIFFERENTIAL Routine 12/30/2024 11:06 AM EDT Other m[facility]p (current) 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 CBC AND DIFFERENTIAL Routine 12/30/2024 11:06 AM EDT Other [facility]p (current) 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 documented in this encounter Results * (ABNORMAL) CBC auto differential (12/30/2024 11:06 AM EDT) WBC 7.1 4.8 - 10.8 K/[facility] LAB HEMETOLOGY METHOD 12/30/2024 12:46 PM EDT [facility] LAB RBC 4.70 4.50 - 5.50 M/[facility] LAB HEMETOLOGY METHOD 12/30/2024 12:46 PM [facility] LAB Hemoglobin 11.5(L) 13.5 - 17.5 g/dL LAB HEMETOLOGY METHOD 12/30[facility]24 [facility] Hematocrit 38.8(L) 42.0 - 54.0 % LAB HEMETOLOGY METHOD 12/30/2024 12:46 PM [facility] LAB MCV 83.3 79.0 - 98.0 FL LAB HEMETOLOGY METHOD 12/30/2024 12:46 [facility] MCH 24.7(L) 27.0 - 32.0 pcg LAB HEMETOLOGY METHOD 12/30/2024 12:46 PM [facility] LAB MCHC 29.6(L) 32.0 - 37.0 g/dL LAB HEMETOLOGY METHOD 12/30/2024 12:46 PM [facility] LAB RDW 16.1(H) 11.0 - 15.0 % LAB HEMETOLOGY METHOD 12/30/2024 12:46 PM [facility] LAB Platelets 183 130 - 400 K/mcL LAB HEMETOLOGY METHOD 12/30/2024 12:46 PM [facility] LAB MPV 11.9(H) 7.0 - 11.0 FL LAB HEMETOLOGY METHOD 12/30/2024 12:46 PM [facility] LAB NRBC 0.0 <1.0 % LAB HEMETOLOGY METHOD 12/30/2024 12:46 PM [facility] LAB NRBC Absolute 0.00 <0.10 K/mcL LAB HEMETOLOGY METHOD 12/30/2024 12:46 PM [facility] LAB Neutrophils Relative 78.9 % LAB HEMETOLOGY METHOD 12/30/2024 12:46 PM [facility] LAB Lymphocytes Relative 12.3 % LAB HEMETOLOGY METHOD 12/30/2024 12:46 PM EDT [facility] LAB Monocytes Relative 6.2 % LAB HEMETOLOGY METHOD 12/30/2024 12:46 [facility] Eosinophils Relative 1.4 % LAB HEMETOLOGY METHOD 12/30/2024 12:46 PM [facility] LAB Basophils Relative 0.6 % LAB HEMETOLOGY METHOD 12/30/2024 12:46 PM [facility] LAB Immature Granulocytes Relative 0.6 % LAB HEMETOLOGY METHOD 12/30/2024 12:46 PM [facility] LAB Neutrophils Absolute 5.57 1.50 - 7.00 K/mcL LAB HEMETOLOGY METHOD 12/30/2024 12:46 PM [facility] LAB Lymphocytes Absolute 0.87(L) 1.00 - 5.00 K/mcL LAB HEMETOLOGY METHOD 12/30/2024 12:46 PM [facility] Monocytes Absolute 0.44 0.20 - 1.00 K/mcL LAB HEMETOLOGY METHOD 12/30/2024 12:46 PM [facility] LAB Eosinophils Absolute 0.10 0.00 - 0.50 K/mcL LAB HEMETOLOGY METHOD 12/30/2024 12:46 PM [facility] LAB Basophils Absolute 0.04 0.00 - 0.20 K/mcL LAB HEMETOLOGY METHOD 12/30/2024 12:46 PM [facility] LAB Immature Granulocytes Absolute 0.04(H) 0.00 - 0.03 K/mcL LAB HEMETOLOGY METHOD 12/30/2024 12:46 PM [facility] LAB Blood Venous blood specimen / Unknown Venipuncture / Unknown 12/30/2024 11:06 AM EDT 12/30/2024 12:12 PM EDT us Freeman Cerna MD LAB BLOOD ORDERABLES Final Resul t [facility] [address] [place] [address], documented in this encounter Visit Diagnoses Diagnosis Other ferry terminal agent (current) 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 documented in this encounter Care Teams Assistant Center Director Relationship Specialty Start Date End Date Regan Hogue MD [address] [place] [address] Dr [address] [place] PCP - General Internal Medicine 11/12/24 documented as of this encounter
--- OUTSIDE RECORDS SUMMARY | 2025-02-17 21:41 | XMS_ITS | Clinical Summary ---
Author Organization [facility] Address [address] [place] [address] Phone Care Team Providers Care Marketing Project Lead Name Role Phone Regan Hogue MD Primary Care Provider Encounters Date Type Department Care Team Description 01/27/2025 Lab Requisition [facility] Lab [address] [place] [phone] Freeman Cerna MD Other mcfp (current) 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 12/30/2024 Lab Requisition [facility] Lab [address] [place] [phone] Freeman Cerna MD Other mcfp (current) 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 12/02/2024 Lab Requisition [facility] Lab [address] [place] [phone] Freeman Cerna MD Other terminal press operator (current) 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 from Last 3 Months [...] 60-74 years 1-dose series) 2024 COVID-19 Vaccine ( - 2023-2 5 season) 2024 Diabetes: Annual Urine Albumin-Creatinine [...] DIFFERENTIAL Routine 01/27/2025 6:17 AM EDT Other terminal press operator (current) 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 CBC AND DIFFERENTIAL Routine 01/27/2025 6:17 AM EDT Other terminal press operator (current) 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 CBC WITH AUTO DIFFERENTIAL Routine 12/30/2024 11:06 AM EDT Other terminal press operator (current) 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 CBC AND DIFFERENTIAL Routine 12/30/2024 11:06 AM EDT Other terminal press operator (current) 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 from Last 3 Months Results * (ABNORMAL) CBC auto differential (01/27/2025 6:17 AM EDT) Only the most recent of2 resultswithin the time period is included. [facility] Signature WBC 8.7 4.8 - 10.8 K/mcL LAB HEMETOLOGY METHOD 01/27/2025 8:[address] [facility] LAB RBC 4.90 4.50 - 5.50 M/mcL LAB HEMETOLOGY METHOD 01/27/2025 8:[address] [facility] LAB Hemoglobin 11.9(L) 13.5 - 17.5 g/dL LAB HEMETOLOGY METHOD 01/27/2025 8:[address] [facility] LAB Hematocrit 40.1(L) 42.0 - 54.0 % LAB HEMETOLOGY METHOD 01/27/2025 8:[address] [facility] LAB MCV 82.7 79.0 - 98.0 FL LAB HEMETOLOGY METHOD 01/27/2025 8:[address] [facility] LAB MCH 24.5(L) 27.0 - 32.0 pcg LAB HEMETOLOGY METHOD 01/27/2025 8:[address] [facility] LAB MCHC 29.7(L) 32.0 - 37.0 g/dL LAB HEMETOLOGY METHOD 01/27/2025 8:[address] [facility] LAB RDW 17.3(H) 11.0 - 15.0 % LAB HEMETOLOGY METHOD 01/27/2025 8:[address] [facility] LAB Platelets 205 130 - 400 K/mcL LAB HEMETOLOGY METHOD 01/27/2025 8:[address] [facility] LAB MPV 12.8(H) 7.0 - 11.0 FL LAB HEMETOLOGY METHOD 01/27/2025 8:[address] [facility] LAB NRBC 0.0 <1.0 % LAB HEMETOLOGY METHOD 01/27/2025 8:[address] [facility] LAB NRBC Absolute 0.00 <0.10 K/mcL LAB HEMETOLOGY METHOD 01/27/2025 8:[address] [facility] LAB Neutrophils Relative 73.5 % LAB HEMETOLOGY METHOD 01/27/2025 8:[address] [facility] LAB Lymphocytes Relative 14.6 % LAB HEMETOLOGY METHOD 01/27/2025 8:[address] [facility] LAB Monocytes Relative 9.3 % LAB HEMETOLOGY METHOD 01/27/2025 8:[address] [facility] LAB Eosinophils Relative 1.6 % LAB HEMETOLOGY METHOD 01/27/2025 8:[address] [facility] LAB Basophils Relative 0.7 % LAB HEMETOLOGY METHOD 01/27/2025 8:[address] [facility] LAB Immature Granulocytes Relative 0.3 % LAB HEMETOLOGY METHOD 01/27/2025 8:[address] [facility] LAB Neutrophils Absolute 6.41 1.50 - 7.00 K/mcL LAB HEMETOLOGY METHOD 01/27/2025 8:[address] [facility] LAB Lymphocytes Absolute 1.27 1.00 - 5.00 K/mcL LAB HEMETOLOGY METHOD 01/27/2025 8:[address] [facility] LAB Monocytes Absolute 0.81 0.20 - 1.00 K/mcL LAB HEMETOLOGY METHOD 01/27/2025 8:[address] [facility] LAB Eosinophils Absolute 0.14 0.00 - 0.50 K/mcL LAB HEMETOLOGY METHOD 01/27/2025 8:[address] [facility] LAB Basophils Absolute 0.06 0.00 - 0.20 K/mcL LAB HEMETOLOGY METHOD 01/27/2025 8:36 AM EDT [facility] ([facility]) [facility] LAB Immature Granulocytes Absolute 0.03 0.00 - 0.03 K/mcL LAB HEMETOLOGY METHOD 01/27/2025 8:[address] [facility] LAB Blood Venous blood specimen / Unknown Venipuncture / Unknown 01/27/2025 6:17 AM EDT 01/27/2025 8:23 AM EDT us Freeman Cerna MD LAB BLOOD ORDERABLES Final Resul t [facility] ([facility]) [facility] LAB [address] [place] [address], from Last 3 Months Insurance MEDICAID - [place] MEDICARE [employer] MEDICARE Care Teams Marketing Project Lead Relationship Specialty Start Date End Date Regan Hogue MD [address] [place] [address] [address] [place] PCP - General Internal Medicine 11/12/24
--- OUTSIDE RECORDS SUMMARY | 2025-02-17 21:41 | XMS_ITS | Encounter Summary ---
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 Social History Tobacco Use [...] DIFFERENTIAL Routine 10/07/2024 7:40 AM EST Other superintendent marine oil terminal (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) 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 CBC AND DIFFERENTIAL Routine 10/07/2024 7:40 AM EST Other senior care (current) 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 documented in this encounter Results * (ABNORMAL) CBC auto differential (10/07/2024 7:40 AM EST) WBC 8.0 4.8 - 10.8 K/[facility] LAB HEMETOLOGY METHOD 10/07/2024 12:19 PM EST [facility] ([facility]) [facility] LAB RBC 4.20(L) 4.50 - 5.50 M/[facility] LAB HEMETOLOGY METHOD 10/07/2024 12:19 PM [facility] LAB Hemoglobin 11.1(L) 13.5 - 17.5 g/dL LAB HEMETOLOGY METHOD 10/07/2024 12:19 PM [facility] LAB Hematocrit 36.7(L) 42.0 - 54.0 % LAB HEMETOLOGY METHOD 10/07/2024 12:19 PM [facility] LAB MCV 87.0 79.0 - 98.0 FL LAB HEMETOLOGY METHOD 10/07/2024 12:19 PM [facility] LAB MCH 26.3(L) 27.0 - 32.0 pcg LAB HEMETOLOGY METHOD 10/07/2024 12:19 PM [facility] LAB MCHC 30.2(L) 32.0 - 37.0 g/dL LAB HEMETOLOGY METHOD 10/07/2024 12:19 PM [facility] LAB RDW 15.3(H) 11.0 - 15.0 % LAB HEMETOLOGY METHOD 10/07/2024 12:19 PM [facility] LAB Platelets 160 130 - 400 K/mcL LAB HEMETOLOGY METHOD 10/07/2024 12:19 PM [facility] LAB MPV 12.9(H) 7.0 - 11.0 FL LAB HEMETOLOGY METHOD 10/07/2024 12:19 PM [facility] LAB NRBC 0.0 <1.0 % LAB HEMETOLOGY METHOD 10/07/2024 12:19 PM [facility] LAB NRBC Absolute 0.00 <0.10 K/mcL LAB HEMETOLOGY METHOD 10/07/2024 12:19 PM [facility] LAB Neutrophils Relative 72.5 % LAB HEMETOLOGY METHOD 10/07/2024 12:19 PM [facility] LAB Lymphocytes Relative 16.9 % LAB HEMETOLOGY METHOD 10/07/2024 12:19 PM [facility] LAB Monocytes Relative 7.4 % LAB HEMETOLOGY METHOD 10/07/2024 12:19 PM EST [facility] LAB Eosinophils Relative 2.1 % LAB HEMETOLOGY METHOD 10/07/2024 12:19 PM [facility] LAB Basophils Relative 0.6 % LAB HEMETOLOGY METHOD 10/07/2024 12:19 PM [facility] LAB Immature Granulocytes Relative 0.5 % LAB HEMETOLOGY METHOD 10/07/2024 12:19 PM [facility] LAB Neutrophils Absolute 5.78 1.50 - 7.00 K/mcL LAB HEMETOLOGY METHOD 10/07/2024 12:19 PM [facility] LAB Lymphocytes Absolute 1.35 1.00 - 5.00 K/mcL LAB HEMETOLOGY METHOD 10/07/2024 12:19 PM [facility] LAB Monocytes Absolute 0.59 0.20 - 1.00 K/mcL LAB HEMETOLOGY METHOD 10/07/2024 12:19 PM EST [facility] LAB Eosinophils Absolute 0.17 0.00 - 0.50 K/mcL LAB HEMETOLOGY METHOD 10/07/2024 12:19 PM [facility] LAB Basophils Absolute 0.05 0.00 - 0.20 K/mcL LAB HEMETOLOGY METHOD 10/07/2024 12:19 PM [facility] LAB Immature Granulocytes Absolute 0.04(H) 0.00 - 0.03 K/mcL LAB HEMETOLOGY METHOD 10/07/2024 12:19 PM [facility] LAB Blood Venous blood specimen / Unknown Venipuncture / Unknown 10/07/2024 7:40 AM EST 10/07/2024 11:28 AM EST us Fereman Cerna MD LAB BLOOD ORDERABLES Final Resul t [facility] LAB [address] [place], [place] [address] [phone] documented in this encounter Visit Diagnoses Diagnosis 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
--- OUTSIDE RECORDS SUMMARY | 2025-02-17 21:41 | XMS_ITS | Encounter Summary ---
Author Organization [facility] Address [address] [place] [address] Care Team Providers Care Lease Operator Name Role Phone Regan Hogue MD Primary Care Provider [phone] Encounter Details Date Type Department Care Team (Late st Contact Info) Description 01/27/2025 Lab Requisition [facility] - Main Lab [address] [facility] [place] [address] Freeman Cerna MD [address] Other intermediate card tender (current) 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 Social History Tobacco Use [...] DIFFERENTIAL Routine 01/27/2025 6:17 AM EDT Other long-term (current) 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 CBC AND DIFFERENTIAL Routine 01/27/2025 6:17 AM EDT Other long-term (current) 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 documented in this encounter Results * (ABNORMAL) CBC auto differential (01/27/2025 6:17 AM EDT) WBC 8.7 4.8 - 10.8 K/[facility] LAB HEMETOLOGY METHOD 01/27/2025 8:36 AM EDT [facility] LAB RBC 4.90 4.50 - 5.50 M/[facility] LAB HEMETOLOGY METHOD 01/27/2025 8:36 AM [facility] LAB Hemoglobin 11.9(L) 13.5 - 17.5 g/dL LAB HEMETOLOGY METHOD 01/27/2025 8:36 AM [facility] LAB Hematocrit 40.1(L) 42.0 - 54.0 % LAB HEMETOLOGY METHOD 01/27/2025 8:36 AM [facility] LAB MCV 82.7 79.0 - 98.0 FL LAB HEMETOLOGY METHOD 01/27/2025 8:36 AM [facility] LAB MCH 24.5(L) 27.0 - 32.0 pcg LAB HEMETOLOGY METHOD 01/27/2025 8:36 AM [facility] LAB MCHC 29.7(L) 32.0 - 37.0 g/dL LAB HEMETOLOGY METHOD 01/27/2025 8:36 AM [facility] LAB RDW 17.3(H) 11.0 - 15.0 % LAB HEMETOLOGY METHOD 01/27/2025 8:36 AM [facility] LAB Platelets 205 130 - 400 K/mcL LAB HEMETOLOGY METHOD 01/27/2025 8:36 AM [facility] LAB MPV 12.8(H) 7.0 - 11.0 FL LAB HEMETOLOGY METHOD 01/27/2025 8:36 AM [facility] LAB NRBC 0.0 <1.0 % LAB HEMETOLOGY METHOD 01/27/2025 8:36 AM [facility] LAB NRBC Absolute 0.00 <0.10 K/mcL LAB HEMETOLOGY METHOD 01/27/2025 8:36 AM [facility] LAB Neutrophils Relative 73.5 % LAB HEMETOLOGY METHOD 01/27/2025 8:36 AM [facility] LAB Lymphocytes Relative 14.6 % LAB HEMETOLOGY METHOD 01/27/2025 8:36 AM EDT [facility] LAB Monocytes Relative 9.3 % LAB HEMETOLOGY METHOD 01/27/2025 8:36 AM EDT [facility] LAB Eosinophils Relative 1.6 % LAB HEMETOLOGY METHOD 01/27/2025 8:36 AM EDT [facility] LAB Basophils Relative 0.7 % LAB HEMETOLOGY METHOD 01/27/2025 8:36 AM EDT [facility] LAB Immature Granulocytes Relative 0.3 % LAB HEMETOLOGY METHOD 01/27/2025 8:36 AM EDT [facility] LAB Neutrophils Absolute 6.41 1.50 - 7.00 K/mcL LAB HEMETOLOGY METHOD 01/27/2025 8:36 AM EDT [facility] LAB Lymphocytes Absolute 1.27 1.00 - 5.00 K/mcL LAB HEMETOLOGY METHOD 01/27/2025 8:36 AM EDT [facility] LAB Monocytes Absolute 0.81 0.20 - 1.00 K/mcL LAB HEMETOLOGY METHOD 01/27/2025 8:36 AM EDT [facility] LAB Eosinophils Absolute 0.14 0.00 - 0.50 K/mcL LAB HEMETOLOGY METHOD [facility] Basophils Absolute 0.06 0.00 - 0.20 K/mcL LAB HEMETOLOGY METHOD 01/27/2025 8:36 AM EDT [facility] LAB Immature Granulocytes Absolute 0.03 0.00 - 0.03 K/mcL LAB HEMETOLOGY METHOD 01/27/2025 8:36 AM EDT [facility] LAB Blood Venous blood specimen / Unknown Venipuncture / Unknown 01/27/2025 6:17 AM EDT 01/27/2025 8:23 AM EDT us Freeman Cerna MD LAB BLOOD ORDERABLES Final Resul t [facility] [place] ([facility] HOSPITAL LAB [address] [place] [address], documented in this encounter Visit Diagnoses Diagnosis Other long-term (current) 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 documented in this encounter Care Teams Lease Operator Relationship Specialty Start Date End Date Regan Hogue MD [address] [place] [address] Dr [address] [place], [place] PCP - General Internal Medicine 11/12/24 documented as of this encounter
--- OUTSIDE RECORDS SUMMARY | 2025-02-17 21:41 | XMS_ITS | Encounter Summary ---
Author Organization [facility] Address [address] [place] [address] Care Team Providers Care Residential Carpet Installer Name Role Phone Regan Hogue MD Primary Care Provider Encounter Details Date Type Department Care Team (Late st Contact Info) Description 11/04/2024 Lab Requisition [facility] - Main Lab [address] [facility] [place] [address] Freeman Cerna MD [address] Other termite treater helper (current) 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 Social History Tobacco Use [...] Routine 11/04/2024 6:33 AM EST Other termite treater helper (current) 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 CBC AND DIFFERENTIAL Routine 11/04/2024 6:33 AM EST Other retirement (current) 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 documented in this encounter Results * (ABNORMAL) CBC auto differential (11/04/2024 6:33 AM EST) WBC 7.7 4.8 - 10.8 K/[facility] LAB HEMETOLOGY METHOD 11/04/2024 10:21 AM EST [facility] ([facility]) [facility] LAB RBC 3.90(L) 4.50 - 5.50 M/[facility] LAB HEMETOLOGY METHOD 11/04/2024 10:21 AM [facility] LAB Hemoglobin 10.4(L) 13.5 - 17.5 g/dL LAB HEMETOLOGY METHOD 11/04/2024 10:21 AM [facility] LAB Hematocrit 34.8(L) 42.0 - 54.0 % LAB HEMETOLOGY METHOD 11/04/2024 10:21 AM [facility] LAB MCV 88.8 79.0 - 98.0 FL LAB HEMETOLOGY METHOD 11/04/2024 10:21 AM [facility] LAB MCH 26.5(L) 27.0 - 32.0 pcg LAB HEMETOLOGY METHOD 11/04/2024 10:21 AM [facility] LAB MCHC 29.9(L) 32.0 - 37.0 g/dL LAB HEMETOLOGY METHOD 11/04/2024 10:21 AM [facility] LAB RDW 16.6(H) 11.0 - 15.0 % LAB HEMETOLOGY METHOD 11/04/2024 10:21 AM [facility] LAB Platelets 131 130 - 400 K/mcL LAB HEMETOLOGY METHOD 11/04/2024 10:21 AM [facility] LAB MPV 13.1(H) 7.0 - 11.0 FL LAB HEMETOLOGY METHOD 11/04/2024 10:21 AM [facility] LAB NRBC 0.0 <1.0 % LAB HEMETOLOGY METHOD 11/04/2024 10:21 AM [facility] LAB NRBC Absolute 0.00 <0.10 K/mcL LAB HEMETOLOGY METHOD 11/04/2024 10:21 AM [facility] LAB Neutrophils Relative 70.9 % LAB HEMETOLOGY METHOD 11/04/2024 10:21 AM [facility] LAB Lymphocytes Relative 17.2 % LAB HEMETOLOGY METHOD 11/04/2024 10:21 AM [facility] LAB Monocytes Relative 9.1 % LAB HEMETOLOGY METHOD 11/04/2024 10:21 AM EST [facility] LAB Eosinophils Relative 1.8 % LAB HEMETOLOGY METHOD 11/04/2024 10:21 AM [facility] LAB Basophils Relative 0.7 % LAB HEMETOLOGY METHOD 11/04/2024 10:21 AM [facility] LAB Immature Granulocytes Relative 0.3 % LAB HEMETOLOGY METHOD 11/04/2024 10:21 AM EST [facility] LAB Neutrophils Absolute 5.46 1.50 - 7.00 K/mcL LAB HEMETOLOGY METHOD 11/04/2024 10:21 AM [facility] LAB Lymphocytes Absolute 1.32 1.00 - 5.00 K/mcL LAB HEMETOLOGY METHOD 11/04/2024 10:21 AM [facility] LAB Monocytes Absolute 0.70 0.20 - 1.00 K/mcL LAB HEMETOLOGY METHOD 11/04/2024 10:21 AM EST [facility] LAB Eosinophils Absolute 0.14 0.00 - 0.50 K/mcL LAB HEMETOLOGY METHOD 11/04/2024 10:21 AM [facility] LAB Basophils Absolute 0.05 0.00 - 0.20 K/mcL LAB HEMETOLOGY METHOD 11/04/2024 10:21 AM [facility] LAB Immature Granulocytes Absolute 0.02 0.00 - 0.03 K/mcL LAB HEMETOLOGY METHOD 11/04/2024 10:21 AM [facility] LAB Blood Venous blood specimen / Unknown Venipuncture / Unknown 11/04/2024 6:33 AM EST 11/04/2024 8:32 AM EST us Freeamn Cerna MD LAB BLOOD ORDERABLES Final Resul t [facility] LAB [address] [place], [place] [address] [phone] documented in this encounter Visit Diagnoses Diagnosis Other retirement (current) 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 documented in this encounter Care Teams Residential Carpet Installer Relationship Specialty Start Date End Date Regan Hogue MD [address] [place] [address] [address] [place] PCP - General Internal Medicine 11/12/24 documented as of this encounter
--- OUTSIDE RECORDS SUMMARY | 2025-02-17 21:41 | XMS_ITS | Encounter Summary ---
Author Organization [facility] Address [address] [place] [address] Care Team Providers Care Upholstery Bundler Name Role Phone Regan Hogue MD Primary Care Provider Encounter Details Date Type Department Care Team (Late st Contact Info) Description 12/02/2024 Lab Requisition [facility] - Main Lab [address] [facility] [place] [address] Freeman Cerna MD [address] Other buttermaker continuous churn (current) 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 Social History Tobacco Use [...] of this encounter Visit Diagnoses Diagnosis Other buttermaker continuous churn (current) 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 documented in this encounter Care Teams Upholstery Bundler Relationship Specialty Start Date End Date Regan Hogue MD [address] [place] [address] Dr [address] [place], [place] PCP - General Internal Medicine 11/12/24 documented as of this encounter
[2025-02-17 22:16] LABS: MANUAL DIFF FLAG NO
[2025-02-17 22:17] LABS: Basophils Percent Auto 0.3 % (0-2); Eosinophils Absolute Auto 0.1 X10*3/uL (0.0-0.4); Hemoglobin 10.9 g/dl (14.0-18.0); Imm Gran Abs Auto 0.02 X10*3/uL (0.00-0.03); Imm Gran Pct Auto 0.3 % (0.0-0.4); Lymphocytes Absolute Auto 0.9 X10*3/uL (1.2-4.9); Lymphocytes Percent Auto 11.6 % (20-40); Mean Corpuscular HGB Conc 31.1 g/dl (31.0-36.0); Mean Corpuscular Hemoglobin 24.3 pg (27.0-33.0); Mean Platelet Volume 11.1 fL (9.4-12.4); Monocytes Absolute Auto 0.9 X10*3/uL (0.1-1.2); Monocytes Percent Auto 12.5 % (2-11); Neutrophils Absolute Auto 5.5 x10*3/uL (2.0-8.3); Neutrophils Percent Auto 74.3 % (45-73); Platelet Count 189 X10*3/uL (160-400); Red Blood Count 4.49 X10*6/uL (4.60-5.80); Red Cell Distribution Width 17.4 % (11.0-16.0); White Blood Count 7.3 X10*3/uL (4.8-10.8)
[2025-02-17 22:23] LABS: Prothrombin Time 11.9 SEC (10.9-12.4)
[2025-02-17 22:33] LABS: Alanine Aminotransferase 16 U/L (0-40); Albumin Level 3.8 g/dL (3.5-5.0); Alkaline Phosphatase 86 U/L (39-117); Anion Gap 17 (12-20); Aspartate Amino Transferase 18 U/L (5-37); Bilirubin Total 0.4 mg/dL (0.0-1.0); Blood Urea Nitrogen 29 mg/dL (9-16); Calcium 9.1 mg/dL (8.4-10.2); Carbon Dioxide 23 mmol/L (22-29); Chloride 105 mmol/L (96-108); Creatinine Clr Calc Pharmacy 80.9; Estimated Glomerular Filt Rate > 60; Ethanol < 10 mg/dL; Glucose Random 159 mg/dL (60-115); Magnesium 2.1 mg/dL (1.6-2.6); Potassium 3.9 mmol/L (3.3-5.1); Sodium 141 mmol/L (135-145); Total Protein 6.9 g/dL (6.5-8.0)
[2025-02-17 22:38] LABS: Troponin-I High Sensitivity 13.7 ng/L (<3.5-35.0)
[2025-02-18 02:12] VITALS: BP 138/80; PULSE 80; RESP 14; TEMP 36.6; O2SAT 96
--- NOTE | 2025-02-18 03:22 | ED_ITS ---
HPI - General Adult General Chief complaint: Fall Stated complaint: Fall w/ head strike Time Seen by Provider: 02/17/25 22:42 Source: patient, EMS and RN notes reviewed Limitations: other (Psychiatric illness) History of Present Illness ED Provider: Lisa Finn PA-C HPI narrative: 60-year-old male with a history of schizoaffective disorder, BPH, DM2, JUDY, HOCM, CHF, GERD, prolonged qt interval, HTN who comes in from intermediate after a witnessed fall. Patient states he fell and he did strike his head. No loss of consciousness, the patient does use a blood thinner. This is his 3rd emergency room visit this week for a fall. The patient has no physical concerns or complaints at this time. Related Data Home Medications ?Medication ?Instructions ?Recorded ?Confirmed aluminum-mag hydroxide-simethicone 10 ml PO TID PRN Indigestion 05/27/24 11/26/24 200 mg-200 mg-20 mg/5 mL oral susp aspirin 81 mg tablet,delayed 81 mg PO DAILY 11/20/24 11/26/24 release atorvastatin 20 mg tablet 20 mg PO BEDTIME 11/20/24 11/26/24 empagliflozin 10 mg tablet 10 mg PO DAILY 11/20/24 11/26/24 (Jardiance) insulin glargine 100 unit/mL (3 15 unit subcut BEDTIME 11/20/24 11/26/24 mL) subcutaneous pen (Lantus Solostar U-100 Insulin) metoprolol succinate 100 mg 100 mg PO DAILY Hypertension 11/26/24 11/26/24 tablet,extended release 24 hr Previous Rx's ?Medication ?Instructions ?Recorded testosterone 1 % (50 mg/5 gram) 1 packet transdermal DAILY 30 days 07/02/24 transdermal gel packet #150 grams acetaminophen 325 mg tablet 650 mg (2 x 325 mg) PO Q6H PRN 11/11/24 (Tylenol) Pain (Scale Score 1-3) #60 tabs blood sugar diagnostic (OneTouch #100 ea 11/11/24 Verio test strips) blood-glucose meter (OneTouch #1 ea 11/11/24 Verio Flex Meter) lancets 33 gauge (OneTouch Delica #100 ea 11/11/24 Plus Lancet) linagliptin 5 mg tablet (Tradjenta) 5 mg PO DAILY 30 days #30 tabs 11/11/24 nitroglycerin 0.4 mg sublingual 0.4 mg sublingual Q5M PRN Chest 11/11/24 tablet Pain #14 tabs pen needle, diabetic 32 gauge x #100 ea 11/11/24 (BD Erica 2nd Gen Pen Needle) clozapine 100 mg tablet 100 mg PO BEDTIME 30 days #30 tabs 12/10/24 clozapine 25 mg tablet 25 mg PO BEDTIME 30 days #30 tabs 12/10/24 clozapine 50 mg tablet 50 mg PO BEDTIME 30 days #30 tabs 12/10/24 lurasidone 60 mg tablet 60 mg PO DAILY@1800 30 days #30 12/10/24 tabs nicotine (polacrilex) 4 mg buccal 4 mg buccal Q2H PRN Smoking 12/10/24 lozenge Cessation 30 days #108 ea polyethylene glycol 3350 17 gram 17 g PO DAILY constipation 30 days 12/10/24 oral powder packet #30 ea sennosides 8.6 mg-docusate sodium 2 tab PO DAILY constipation 30 12/10/24 50 mg tablet (Senna Plus) days #60 tabs tamsulosin 0.4 mg capsule 0.4 mg PO BEDTIME 30 days #30 caps 12/10/24 trazodone 50 mg tablet 50 mg PO BEDTIME PRN Insomnia 30 12/10/24 days #30 tabs albuterol sulfate 90 mcg/actuation 2 puff inhalation Q6H PRN 01/05/25 aerosol inhaler Shortness Of Breath Or Wheezing 30 days #1 inhaler cholecalciferol (vitamin D3) 25 25 mcg PO DAILY #90 tabs 01/28/25 mcg (1,000 unit) tablet omeprazole 20 mg capsule,delayed 40 mg (2 x 20 mg) PO BID@0630,1630 01/28/25 release #180 caps Allergies Allergy/AdvReac Type Severity Reaction Status Date / Time lithium [[place]] Allergy Severe Toxicity Verified 02/17/25 21:21 thiothixene Allergy Severe Swelling Verified 02/17/25 21:21 amoxicillin Allergy Mild Nose Bleed Verified 02/17/25 21:21 benztropine Allergy Unknown benztropine Verified 02/17/25 21:21 mesylate- unknown gabapentin [From NEURONTIN] Allergy Unknown Unknown Verified 02/17/25 21:21 fluphenazine [From Prolixin] Allergy Unknown Verified 02/17/25 21:21 barium sulfate AdvReac Intermediate Nausea and Verified 02/17/25 21:21 [BARIUM SULFATE] Vomiting haloperidol AdvReac Intermediate Muscle Verified 02/17/25 21:21 tension in legs diphenhydramine AdvReac Unknown urinary Verified 02/17/25 21:21 [From Benadryl] retention Review of Systems 2 Review of Systems: Limited secondary to psychiatric illness Yes all other systems are reviewed and are negative FORMERLY [facility], [facility] Past Medical History Attestation statement: The following information was validated with the patient. 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 BPH (benign prostatic hyperplasia) Diabetes mellitus Essential hypertension HOCM (hypertrophic obstructive cardiomyopathy) Coronary artery disease Osteoarthritis GERD without esophagitis Vitamin D deficiency Congestive heart failure COVID-19 Thought disorder Constipation COPD (chronic obstructive pulmonary disease) Smoker Diabetes mellitus Obesity (BMI 30-39.9) Pure hypercholesterolemia Prolonged QT interval Aggression Hypertension CHF (congestive heart failure) Cardiac arrhythmia Myocardial infarction Surgical History History of ankle surgery History of intestinal surgery History of transurethral resection of prostate Family History Family History Father Medical history unknown Mother Medical history unknown Sister Alive and well Social History Social History Household Members: Other Household Members Other:: intermediate residents Housing: House Housing Other:: [facility] Do you presently have visiting nurse or other home services: Yes Unable to assess alcohol history related to: Unknown Alcohol intake: current Alcohol intake frequency: a few times a month Alcohol type: beer Comment: 1:[address] Patient Tobacco Use Status: Former Tobacco user Tobacco use type: Cigarette Cigarette Packs Per Day: 0.5 Cigarettes Per Day: 10 Years Smoked: Many Smoked in Last 30 Days: No e-Cigarette/Vaping Use: Currently Using Second Hand Smoke Exposure: Yes Use of substances other than those prescribed or required for medical reasons: No Substance Use Type: Unknown Advance Directives: Yes Advance Directives on File: Yes Advance Directives Date on File: 01/14/24 Do you have a plan to hurt others: No Plan service: Yes (attended [employer] 1980) Current occupational status: disabled Sexual orientation: Straight/Heterosexual Cognitive needs: Yes Hearing needs: No Vision needs: Yes Physical Exam ED Vital Signs: Vital Signs - 24 hr 02/17/25 21:17 02/18/25 02:12 Temperature 99.0 F 97.9 F Pulse Rate 84 80 Respiratory Rate 16 14 Blood Pressure 137/71 138/80 Pulse Oximetry 97 96 Oxygen Delivery Method Nasal Cannula Nasal Cannula Oxygen Flow Rate 2 2 BMI result Body Mass Index 34.2 Const Other: Sleeping, easily woken with verbal stimuli Orientation/consciousness: patient oriented x3 Neck Other: No midline tenderness, full range of motion Resp Effort & Inspection: normal respiratory effort Cardio Other: Normal peripheral perfusion Skin Other: Warm dry no rash Neuro General: patient oriented x3, gait normal, no focal motor deficits and CN's II- XI intact bilaterally Psych Other: Cooperative Medical Decision Making Medical Decision Making MDM Narrative: 60-year-old male with a history of schizoaffective disorder, BPH, DM2, JUDY, HOCM, CHF, GERD, prolonged qt interval, HTN who comes in from intermediate after a witnessed fall. Patient states he fell and he did strike his head. No loss of consciousness, the patient does use a blood thinner. This is his 3rd emergency room visit this week for a fall. The patient has no physical concerns or complaints at this time. Problem: Psychiatric illness, diabetes History per EMS and fpc record I have considered the following differential diagnoses: Intracranial hemorrhage, contusion, concussion Plan: The patient is on aspirin, he is also not a reliable historian secondary to his psychiatric illness, we will be repeating the CT scan. It is reassuring that he is not altered, he has no neurologic deficits he is not actively vomiting to suggest an intracranial hemorrhage. I have independently reviewed the following tests: Labs: No leukocytosis, not anemic, no electrolyte abnormality CT brain:IMPRESSION: 1. No acute intracranial findings. Lab Data 02/17/25 22:10 02/17/25 22:10 Labs: Lab Results 02/17/25 Range/Units 22:10 WBC 7.3 (4.8-10.8) X10*3/uL RBC 4.49 L (4.60-5.80) X10*6/uL Hgb 10.9 L (14.0-18.0) g/dl Hct 35.0 L (42.0-52.0) % MCV 78.0 L (80.0-98.0) fL MCH 24.3 L (27.0-33.0) pg MCHC 31.1 (31.0-36.0) g/dl RDW 17.4 H (11.0-16.0) % Plt Count 189 (160-400) X10*3/uL MPV 11.1 (9.4-12.4) fL Immature Gran % (Auto) 0.3 (0.0-0.4) % Neut % (Auto) 74.3 H (45-73) % Lymph % (Auto) 11.6 L (20-40) % [place] % (Auto) 12.5 H (2-11) % Eos % (Auto) 1.0 (0-4) % Baso % (Auto) 0.3 (0-2) % Lymph # (Auto) 0.9 L (1.2-4.9) X10*3/uL [place] # (Auto) 0.9 (0.1-1.2) X10*3/uL Eos # (Auto) 0.1 (0.0-0.4) X10*3/uL Baso # (Auto) 0.0 (0.0-0.2) X10*3/uL Abs Immat Gran (auto) 0.02 (0.00-0.03) X10*3/uL Absolute Neuts (auto) 5.5 (2.0-8.3) x10*3/uL Absolute Nucleated RBC 0.000 (0.0-0.012) X10*3/uL Nucleated RBC % (auto) 0.0 (0.0-0.2) /100WBC PT 11.9 (10.9-12.4) SEC INR 1.0 (0.9-1.1) Sodium 141 (135-145) mmol/L Potassium 3.9 (3.3-5.1) mmol/L Chloride 105 (96-108) mmol/L Carbon Dioxide 23 (22-29) mmol/L Anion Gap 17 (12-20) BUN 29 H (9-16) mg/dL Creatinine 1.11 (0.5-1.4) mg/dL Estim Creat Clear Calc 80.9 Estimated GFR > 60 Random Glucose 159 H (60-115) mg/dL Calcium 9.1 (8.4-10.2) mg/dL Magnesium 2.1 (1.6-2.6) mg/dL Total Bilirubin 0.4 (0.0-1.0) mg/dL AST 18 (5-37) U/L ALT 16 (0-40) U/L Alkaline Phosphatase 86 (39-117) U/L Troponin I High Sens 13.7 (<3.5-35.0) ng/L Total Protein 6.9 (6.5-8.0) g/dL Albumin 3.8 (3.5-5.0) g/dL Ethyl Alcohol < 10 mg/dL Discharge Plan Discharge Clinical Impression: Contusion of head Patient Disposition: Home, Self-Care Instructions: Contusion in Adults (ED) Additional Instructions: All labs were normal, the CT scan of the head was negative for acute injury. He should follow up with his primary care within the week. Prescriptions: No Action albuterol sulfate 90 mcg/actuation HFA aerosol inhaler 2 puff inhalation Q6H PRN (Reason: Shortness Of Breath Or Wheezing) 30 Days Qty: 1 0RF omeprazole 20 mg capsule,delayed release(DR/EC) 40 mg PO BID@0630,1630 Qty: 180 0RF cholecalciferol (vitamin D3) 25 mcg (1,000 unit) tablet 25 mcg PO DAILY Qty: 90 0RF aspirin 81 mg tablet,delayed release (DR/EC) 81 mg PO DAILY atorvastatin 20 mg tablet 20 mg PO BEDTIME insulin glargine [Lantus Solostar U-100 Insulin] 100 unit/mL (3 mL) insulin pen 15 unit subcut BEDTIME Jardiance 10 mg tablet 10 mg PO DAILY alum-mag hydroxide-simeth 200-200-20 mg/5 mL Suspension 10 ml PO TID PRN (Reason: Indigestion) Rx Instructions: administer between meals and at bedtime metoprolol succinate 100 mg tablet extended release 24 hr 100 mg PO DAILY Protocol: Hold for SBP/HR < HOLD for SBP < : 90 HOLD for HR < : 60 tamsulosin 0.4 mg Capsule 0.4 mg PO BEDTIME 30 Days Qty: 30 0RF clozapine 100 mg tablet 100 mg PO BEDTIME 30 Days Qty: 30 0RF Rx Instructions: take with 50mg and 25mg tab clozapine 50 mg tablet 50 mg PO BEDTIME 30 Days Qty: 30 0RF Rx Instructions: take with 100mg and 25mg tab clozapine 25 mg tablet 25 mg PO BEDTIME 30 Days Qty: 30 0RF Rx Instructions: take with 50mg and 100mg tab lurasidone 60 mg tablet 60 mg PO DAILY@1800 30 Days Qty: 30 0RF Rx Instructions: must administer with food (at least 350 calories) trazodone 50 mg Tablet 50 mg PO BEDTIME PRN (Reason: Insomnia) 30 Days Qty: 30 0RF polyethylene glycol 3350 17 gram powder in packet 17 g PO DAILY 30 Days Qty: 30 0RF Rx Instructions: hold for loose stool sennosides-docusate sodium [Senna Plus] 8.6-50 mg tablet 2 tab PO DAILY 30 Days Qty: 60 0RF Rx Instructions: hold for loose stool nicotine (polacrilex) 4 mg Lozenge 4 mg buccal Q2H PRN (Reason: Smoking Cessation) 30 Days Qty: 108 0RF Tradjenta 5 mg tablet 5 mg PO DAILY 30 Days Qty: 30 0RF (DME) lancets [OneTouch Delica Plus Lancet] 33 gauge misc See Rx Instructions .ROUTE .MEDSUPPLY Qty: 100 5RF Rx Instructions: Use as directed to check blood glucose twice daily. nitroglycerin 0.4 mg tablet, sublingual 0.4 mg SUBLINGUAL Q5M PRN (Reason: Chest Pain) Qty: 14 0RF Rx Instructions: do not exceed 3 doses per episode (DME) pen needle, diabetic [BD Erica 2nd Gen Pen Needle] 32 gauge x /32 needle See Rx Instructions .ROUTE .MEDSUPPLY Qty: 100 11RF Rx Instructions: As directed to administer lantus insulin once daily (DME) OneTouch Verio test strips Strip See Rx Instructions .ROUTE .MEDSUPPLY Qty: 100 5RF Rx Instructions: Use as directed to check blood glucose twice daily. (DME) blood-glucose meter [OneTouch Verio Flex meter] Misc See Rx Instructions .ROUTE .MEDSUPPLY Qty: 1 0RF Rx Instructions: Use as directed to check blood glucose twice daily for Type II diabetes mellitus. acetaminophen [Tylenol] 325 mg tablet 650 mg PO Q6H PRN (Reason: Pain (Scale Score 1-3)) Qty: 60 2RF testosterone 1 % (50 mg/5 gram) gel in packet 1 packet transdermal DAILY 30 Days Qty: 150 5RF Print Language: Bangladeshi
--- NOTE | 2025-02-18 07:00 | PHA.MEDREC ---
Pharmacy Consult ? Medication Reconciliation Pharmacy has completed the medication reconciliation. Received med list from nursing. List didn't have Vitamin D3, Lantus, Jardiance, Linagliptin, Tamsulosin, or Testosterone so these weren't confirmed. Patient doesn't have admission order yet, will speak with patient if he is admitted to confirm the last meds.
[2025-02-18 10:08] VITALS: BP 128/76; PULSE 72; RESP 18; TEMP 36.6; O2SAT 94
== END 2025-02-18 10:09 | disposition home or self-care (01) ==
PROVIDERS: Emergency Provider Emergency Medicine; PCP Internal Medicine
DX: S00.83XA Contusion of other part of head, initial encounter (principal); W19.XXXA Unspecified fall, initial encounter; Y93.9 Activity, unspecified; Y92.199 Unspecified place in other specified residential institution as the place of occurrence of the external cause; Y99.9 Unspecified external cause status
CPT/HCPCS: 36415; 70450; 80053; 80307; 83735; 84484; 85025; 85610; 93005; 99284; 99285

== ENCOUNTER → 2025-02-17 21:17 | Outpatient (BNV) | payer MEDICARE, MEDICAID, SELFPAY | PROVIDERS: Emergency Provider Emergency Medicine; PCP Internal Medicine; Visit Provider Internal Medicine Cardiovascular Disease | DX: I51.7 Cardiomegaly (principal) | CPT/HCPCS: 93010 ==

== ENCOUNTER → 2025-02-17 23:36 | Outpatient (BNV) | payer MEDICARE, MEDICAID, SELFPAY | PROVIDERS: Emergency Provider Emergency Medicine; PCP Internal Medicine; Visit Provider Specialist | DX: S00.93XA Contusion of unspecified part of head, initial encounter (principal) | CPT/HCPCS: 70450 ==

== ENCOUNTER 2025-03-10 13:45 | Outpatient (AMB) | payer MEDICARE, MEDICAID, SELFPAY ==
[2025-03-10 13:53] VITALS: BP 104/60; PULSE 96; O2SAT 93; BMI 27.8
--- NOTE | 2025-03-10 13:53 | MHC.OFFVIS ---
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 Allergies lithium [[place]] Allergy (Severe, Verified 03/10/25 14:05) Toxicity thiothixene Allergy (Severe, Verified 03/10/25 14:05) Swelling amoxicillin Allergy (Mild, Verified 03/10/25 14:05) Nose Bleed benztropine Allergy (Unknown, Verified 03/10/25 14:05) benztropine mesylate- unknown gabapentin [From NEURONTIN] Allergy (Unknown, Verified 03/10/25 14:05) Unknown fluphenazine [From Prolixin] Allergy (Verified 03/10/25 14:05) Unknown barium sulfate [BARIUM SULFATE] Adverse Reaction (Intermediate, Verified 03/10/25 14:05) Nausea and Vomiting haloperidol Adverse Reaction (Intermediate, Verified 03/10/25 14:05) Muscle tension in legs diphenhydramine [From Benadryl] Adverse Reaction (Unknown, Verified 03/10/25 14:05) urinary retention Medication List - Last Reconciled 03/10/25 by Alec Little MD acetaminophen (Tylenol) 650 mg (2 x 325 mg) PO Q6H PRN albuterol sulfate 90 mcg/actuation 2 puffs inhalation Q6H PRN 30 days alum-mag hydroxide-simeth 200-200-20 mg/5 mL 10 mL PO TID PRN aspirin 81 mg PO DAILY atorvastatin 20 mg PO BEDTIME blood sugar diagnostic (cookdinnerTouch Verio test strips) Use as directed to check blood glucose twice daily. blood-glucose meter (cookdinnerTouch Verio Flex Meter) Use as directed to check blood glucose twice daily for Type II diabetes mellitus. cholecalciferol (vitamin D3) 25 mcg PO DAILY clozapine 50 mg PO BEDTIME 30 days clozapine 25 mg PO BEDTIME 30 days clozapine 100 mg PO BEDTIME 30 days empagliflozin (Jardiance) 10 mg PO DAILY furosemide 40 mg PO DAILY insulin glargine (Lantus Solostar U-100 Insulin) 15 units subcut BEDTIME lancets (OneTouch Delica Plus Lancet) Use as directed to check blood glucose twice daily. linagliptin (Tradjenta) 5 mg PO DAILY 30 days lurasidone 60 mg PO DAILY@1800 30 days metoprolol succinate ER 100 mg See Protocol PO DAILY nicotine (polacrilex) 4 mg buccal Q2H PRN 30 days nitroglycerin 0.4 mg sublingual Q5M PRN omeprazole 40 mg (2 x 20 mg) PO BID@0630,1630 pen needle, diabetic (BD Erica 2nd Gen Pen Needle) As directed to administer lantus insulin once daily polyethylene glycol 3350 17 grams PO DAILY 30 days sennosides-docusate sodium 8.6-50 mg (Senna Plus) 2 tabs PO DAILY 30 days tamsulosin 0.4 mg PO BEDTIME 30 days testosterone 1 packet transdermal DAILY 30 days trazodone 50 mg PO BEDTIME PRN 30 days HPI HPI Nocturnal Hypoxemia: Details: 60 YEARS OLD GENTLEMAN LIVES IN A RESIDENTIAL, WITH DIAGNOSIS OF SCHIZOPHRENIC DISORDER , , MODERATE OBESITY , SMOKING, AND HISTORY OF NOCTURNAL HYPOXEMIA. HE DID HAVE POLYSOMNOGRAM STUDY IN 2021, WHICH DID NOT CONFIRM ANY SIGNIFICANT SLEEP APNEA BUT HE HAD NOCTURNAL HYPOXEMIA PROBABLY SECONDARY TO SLEEP-RELATED HYPOVENTILATION. SINCE THEN HE HAS BEEN ON O2 THERAPY AT NIGHT 2 L/MINUTE. HE DOES USE OXYGEN, WITH A COMMENT THAT HE DOES NOT KNOW IF IT IS DOING ANY GOOD. HE SAY IS HE SLEEPS OKAY. DAYTIME SLEEPINESS IS DIFFICULT TO ASSESS IN HIS CASE. HE IS IN A RELATIVELY BAD MOOD TODAY. ON QUESTIONING HE DOES ON SO THAT HIS BREATHING IS OKAY . AND HE ALSO EXPRESSES THAT HE SLEEPS OKAY AT NIGHT. FORMERLY [facility] Medical History Nocturnal hypoxemia Schizoaffective disorder, bipolar type Diabetic neuropathy Type II diabetes with care home use of insulin BPH (benign prostatic hyperplasia) Diabetes mellitus Essential hypertension HOCM (hypertrophic obstructive cardiomyopathy) Coronary artery disease Osteoarthritis GERD without esophagitis Vitamin D deficiency Congestive heart failure COVID-19 Thought disorder Constipation COPD (chronic obstructive pulmonary disease) Smoker Diabetes mellitus Obesity (BMI 30-39.9) Pure hypercholesterolemia Prolonged QT interval Aggression Hypertension CHF (congestive heart failure) Cardiac arrhythmia Myocardial infarction Surgical History History of ankle surgery History of intestinal surgery History of transurethral resection of prostate Family History Father Medical history unknown Mother Medical history unknown Sister Alive and well Social History Household Members: Other Household Members Other:: senior living residents Housing: House Housing Other:: [facility] Do you presently have visiting nurse or other home services: Yes Unable to assess alcohol history related to: Unknown Alcohol intake: current Alcohol intake frequency: a few times a month Alcohol type: beer Comment: 1:[address] Patient Tobacco Use Status: Former Tobacco user Tobacco use type: Cigarette Cigarette Packs Per Day: 0.5 Cigarettes Per Day: 10 Years Smoked: Many e-Cigarette/Vaping Use: Currently Using Second Hand Smoke Exposure: Yes Substance Use Type: Unknown Advance Directives Date on File: 01/14/24 service: Yes (attended [employer] 1980) Current occupational status: disabled Sexual orientation: Straight/Heterosexual Cognitive needs: Yes Hearing needs: No Vision needs: Yes Review of Systems Const All systems reviewed & are unremarkable except as noted in HPI and below Eyes Reports no additional complaints ENT Reports no additional complaints Card Details: Being followed by Cardiology for hypertrophic cardiomyopathy Denies chest pain, Denies irregular heart rhythm, Denies leg edema and Reports dyspnea on exertion (mild) Resp Denies cough, Reports dyspnea on exertion (mild) and Denies wheezing GI Reports no additional complaints Reports erectile dysfunction and Reports other (Being followed for BPH symptoms) Musc Reports no additional complaints Skin/Breast Reports system reviewed and no additional complaints, except as documented Neuro Reports no additional complaints Psych Reports anxiety and Reports mood swings Endo Reports no additional complaints Dilshad/Lymph Reports no additional complaints Aller/Immun Denies wheezing Physical Exam Vital Signs: Last Vital Signs Pulse 96 03/10/25 13:53 BP 104/60 03/10/25 13:53 Pulse Ox 93 03/10/25 13:53 Oxygen Delivery Method Room Air 03/10/25 13:53 BMI result Body Mass Index 27.8 Const General: comfortable, no acute distress, alert and awake Orientation/consciousness: patient oriented x3 HEENT Head: Yes normal to inspection General nose exam: No nasal polyps present and No nasal discharge present Face and sinus: Yes sinuses nontender Mouth: oropharynx normal Throat: Yes posterior oropharynx normal Eyes General: appearance normal, both eyes and all related structures Neck Neck: Yes normal visual inspection, Yes no lymphadenopathy, Yes trachea midline and Yes no JVD Thyroid: Thyroid normal Chest Chest palpation & inspection: normal inspection of the chest, normal palpation of entire chest wall and no tenderness Resp Other: Percussion note resonant, breath sounds are slightly distant, but no wheezes or rhonchi are heard. No crepitations Cardio Palpation: normal PMI Rate: regular rate Rhythm: regular rhythm Heart sounds: no gallops and no murmurs GI Palpation (GI): Soft to palpation, nontender, No hepatosplenomegaly present and no masses Auscultation: normal bowel sounds Back/Spine/Pelvis Thoracic/Lumbar Spine: thoracic and lumbar spine normal to inspection and thoraco-lumbar ROM limited Skin General skin exam: no rashes or lesions noted Neuro General: patient oriented x3, No gait normal (Slightly impaired and slow) and no focal motor deficits Cranial nerves: Yes CN's II-XII intact bilaterally Extrem General: Yes normal to inspection, Yes no clubbing, cyanosis or edema and Yes no calf tenderness Psych Appearance: grossly normal and well kempt Speech and movement: Normal speech and movement present Assessment & Plan Assessment & Plan (1) Smoking: Comment: Long-time smoker who had cut down to 5 cigarettes a day. Today he states that he smokes half pack a day. On further questioning he got somewhat upset, stating that he is at end of his life and he wants to enjoy smoking. Code(s): F17.200 - Nicotine dependence, unspecified, uncomplicated Category: Social Hx Plan: I did try to stress on him that he needs to quit smoking or at least cut down the number of cigarettes to less than 5 per day. He became relatively angry and is not willing to listen to any advised to quit smoking. (2) JUDY (obstructive sleep apnea): Comment: Polysomnogram study in 2021 was negative for sleep apnea but he did have nocturnal hypoxemia. Code(s): G47.33 - Obstructive sleep apnea (adult) (pediatric) Category: Medical Plan: Advised to continue using oxygen 2 L/minute every night. Coding Level of Care Code Est Pt Level 3 (05684) Diagnoses Smoking F17.200 JUDY (obstructive sleep apnea) G47.33
--- OUTSIDE RECORDS SUMMARY | 2025-03-10 15:27 | XMS_ITS | Encounter Summary ---
Author Organization [facility] Address [address] [place] [address] Care Team Providers Care Backhaul Driver Name Role Phone Regan Hogue MD Primary Care Provider Encounter Details Date Type Department Care Team (Late st Contact Info) Description 08/12/2024 Lab Requisition [facility] - Main Lab [address] [place] [address] Freeman Cerna MD [address] Other salvage determiner (current) 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 Social History Tobacco Use [...] FEE Routine 08/12/2024 9:00 AM EST Other salvage determiner (current) 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 CBC WITH AUTO DIFFERENTIAL Routine 08/12/2024 9:00 AM EST Other salvage determiner (current) 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 CBC AND DIFFERENTIAL Routine 08/12/2024 9:00 AM EST Other retirement (current) 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 documented in this encounter Results * (ABNORMAL) CBC auto differential (08/12/2024 9:00 AM EST) [facility] Signature WBC 6.5 4.8 - 10.8 K/[facility] LAB HEMETOLOGY METHOD 08/12/2024 11:44 AM EST [facility] LAB RBC 4.30(L) 4.50 - 5.50 M/mcL LAB HEMETOLOGY METHOD 08/12/2024 11:44 AM [facility] LAB Hemoglobin 11.6(L) 13.5 - 17.5 g/dL LAB HEMETOLOGY METHOD 08/12/2024 11:44 AM [facility] LAB Hematocrit 37.1(L) 42.0 - 54.0 % LAB HEMETOLOGY METHOD 08/12/2024 11:44 AM [facility] LAB MCV 86.7 79.0 - 98.0 FL LAB HEMETOLOGY METHOD 08/12/2024 11:44 AM [facility] LAB MCH 27.1 27.0 - 32.0 pcg LAB HEMETOLOGY METHOD 08/12/2024 11:44 AM [facility] LAB MCHC 31.3(L) 32.0 - 37.0 g/dL LAB HEMETOLOGY METHOD 08/12/2024 11:44 AM [facility] LAB RDW 15.7(H) 11.0 - 15.0 % LAB HEMETOLOGY METHOD 08/12/2024 11:44 AM [facility] LAB Platelets 121(L) 130 - 400 K/mcL LAB HEMETOLOGY METHOD 08/12/2024 11:44 AM [facility] LAB MPV 12.6(H) 7.0 - 11.0 FL LAB HEMETOLOGY METHOD 08/12/2024 11:44 AM [facility] LAB NRBC 0.0 <1.0 % LAB HEMETOLOGY METHOD 08/12/2024 11:44 AM [facility] LAB NRBC Absolute 0.00 <0.10 K/mcL LAB HEMETOLOGY METHOD 08/12/2024 11:44 AM [facility] LAB Neutrophils Relative 74.8 % LAB HEMETOLOGY METHOD 08/12/2024 11:44 AM [facility] LAB Lymphocytes Relative 13.3 % LAB HEMETOLOGY METHOD 08/12/2024 11:44 AM [facility] LAB Monocytes Relative 9.4 % LAB HEMETOLOGY METHOD 08/12/2024 11:44 AM [facility] LAB Eosinophils Relative 1.1 % LAB HEMETOLOGY METHOD 08/12/2024 11:44 AM [facility] LAB Basophils Relative 0.6 % LAB HEMETOLOGY METHOD 08/12/2024 11:44 AM [facility] LAB Immature Granulocytes Relative 0.8 % LAB HEMETOLOGY METHOD 08/12/2024 11:44 AM [facility] LAB Neutrophils Absolute 4.86 1.50 - 7.00 K/mcL LAB HEMETOLOGY METHOD 08/12/2024 11:44 AM [facility] LAB Lymphocytes Absolute 0.86(L) 1.00 - 5.00 K/mcL LAB HEMETOLOGY METHOD 08/12/2024 11:44 AM [facility] LAB Monocytes Absolute 0.61 0.20 - 1.00 K/mcL LAB HEMETOLOGY METHOD 08/12/2024 11:44 AM [facility] LAB Eosinophils Absolute 0.07 0.00 - 0.50 K/mcL LAB HEMETOLOGY METHOD 08/12/2024 11:44 AM [facility] LAB Basophils Absolute 0.04 0.00 - 0.20 K/mcL LAB HEMETOLOGY METHOD 08/12/2024 11:44 AM [facility] LAB Immature Granulocytes Absolute 0.05(H) 0.00 - 0.03 K/mcL LAB HEMETOLOGY METHOD 08/12/2024 11:44 AM [facility] LAB Blood Venous blood specimen / Unknown Venipuncture / Unknown 08/12/2024 9:00 AM EST 08/12/2024 10:29 AM EST us Freeman Cerna MD LAB BLOOD ORDERABLES Final Resul t Performing Organization Address [facility]/ZIP Co de Phone Number [facility] [address] [place] [address], * Travel phlebotomy fee (08/12/2024 9:00 AM EST) [facility] TRAVEL PHLEBOTOMY FEE Completed 08/12/2024 11:02 AM EST [facility] Blood Venous blood specimen / Unknown Venipuncture / Unknown 08/12/2024 9:00 AM EST 08/12/2024 10:29 AM EST Freeman Cerna MD LAB BLOOD ORDERABLES Final Resul t Performing Organization Address [facility] Co de Phone Number [facility] [address] [place] [address], [place] [phone] documented in this encounter Visit Diagnoses Diagnosis Other retirement (current) 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 documented in this encounter Care Teams Backhaul Driver Relationship Specialty Start Date End Date Regan Hogue MD [address] [place] [address] Dr [address] [place] PCP - General Internal Medicine 11/12/24 documented as of this encounter
== END 2025-03-10 14:03 | disposition home or self-care (01) ==
LOC: HO.HPS 13:46
PROVIDERS: PCP Internal Medicine; Visit Provider Internal Medicine
DX: F17.200 Nicotine dependence, unspecified, uncomplicated (principal); G47.33 Obstructive sleep apnea (adult) (pediatric)
CPT/HCPCS: 99213

== ENCOUNTER → 2025-03-10 13:45 | Outpatient (BNVA) | payer MEDICARE, MEDICAID, SELFPAY | PROVIDERS: PCP Internal Medicine; Visit Provider Internal Medicine | DX: G47.33 Obstructive sleep apnea (adult) (pediatric) (principal); F17.210 Nicotine dependence, cigarettes, uncomplicated | CPT/HCPCS: 99212 ==

== ENCOUNTER 2025-03-13 10:35 | Outpatient (AMB) | payer MEDICARE, MEDICAID, SELFPAY ==
[2025-03-13 10:41] VITALS: BP 140/68; PULSE 94; TEMP 36.2; O2SAT 95; BMI 36.4
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
--- OUTSIDE RECORDS SUMMARY | 2025-03-13 11:23 | XMS_ITS | Encounter Summary ---
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5 - 17.5 g/dL LAB HEMETOLOGY METHOD 08/12/2024 11:44 AM [facility] LAB Hematocrit 37.1(L) 42.0 - 54.0 % LAB HEMETOLOGY METHOD 08/12/2024 11:44 AM [facility] LAB MCV 86.7 79.0 - 98.0 FL LAB HEMETOLOGY METHOD 08/12/2024 11:44 AM [facility] LAB MCH 27.1 27.0 - 32.0 pcg LAB HEMETOLOGY METHOD 08/12/2024 11:44 AM [facility] LAB MCHC 31.3(L) 32.0 - 37.0 g/dL LAB HEMETOLOGY METHOD 08/12/2024 11:44 AM [facility] LAB RDW 15.7(H) 11.0 - 15.0 % LAB HEMETOLOGY METHOD 08/12/2024 11:44 AM [facility] LAB Platelets 121(L) 130 - 400 K/mcL LAB HEMETOLOGY METHOD 08/12/2024 11:44 AM [facility] LAB MPV 12.6(H) 7.0 - 11.0 FL LAB HEMETOLOGY METHOD 08/12/2024 11:44 AM [facility] LAB NRBC 0.0 <1.0 % LAB HEMETOLOGY METHOD 08/12/2024 11:44 AM [facility] LAB NRBC Absolute 0.00 <0.10 K/mcL LAB HEMETOLOGY METHOD 08/12/2024 11:44 AM [facility] LAB Neutrophils Relative 74.8 % LAB HEMETOLOGY METHOD 08/12/2024 11:44 AM [facility] LAB Lymphocytes Relative 13.3 % LAB HEMETOLOGY METHOD 08/12/2024 11:44 AM [facility] LAB Monocytes Relative 9.4 % LAB HEMETOLOGY METHOD 08/12/2024 11:44 AM [facility] LAB Eosinophils Relative 1.1 % LAB HEMETOLOGY METHOD 08/12/2024 11:44 AM [facility] LAB Basophils Relative 0.6 % LAB HEMETOLOGY METHOD 08/12/2024 11:44 AM [facility] LAB Immature Granulocytes Relative 0.8 % LAB HEMETOLOGY METHOD 08/12/2024 11:44 AM [facility] LAB Neutrophils Absolute 4.86 1.50 - 7.00 K/mcL LAB HEMETOLOGY METHOD 08/12/2024 11:44 AM [facility] LAB Lymphocytes Absolute 0.86(L) 1.00 - 5.00 K/mcL LAB HEMETOLOGY METHOD 08/12/2024 11:44 AM [facility] LAB Monocytes Absolute 0.61 0.20 - 1.00 K/mcL LAB HEMETOLOGY METHOD 08/12/2024 11:44 AM [facility] LAB Eosinophils Absolute 0.07 0.00 - 0.50 K/mcL LAB HEMETOLOGY METHOD 08/12/2024 11:44 AM [facility] LAB Basophils Absolute 0.04 0.00 - 0.20 K/mcL LAB HEMETOLOGY METHOD 08/12/2024 11:44 AM [facility] LAB Immature Granulocytes Absolute 0.05(H) 0.00 - 0.03 K/mcL LAB HEMETOLOGY METHOD 08/12/2024 11:44 AM [facility] LAB Blood Venous blood specimen / Unknown Venipuncture / Unknown 08/12/2024 9:00 AM EST 08/12/2024 10:29 AM EST us Freeman Cerna MD LAB BLOOD ORDERABLES Final Resul t Performing Organization Address [facility]/ZIP Co de Phone Number [facility] [address] [place] [address], * Travel phlebotomy fee (08/12/2024 9:00 AM EST) [facility] TRAVEL PHLEBOTOMY FEE Completed 08/12/2024 11:02 AM EST [facility] Blood Venous blood specimen / Unknown Venipuncture / Unknown 08/12/2024 9:00 AM EST 08/12/2024 10:29 AM EST Freeman Cerna MD LAB BLOOD ORDERABLES Final Resul t Performing Organization Address [facility] Co de Phone Number [facility] [address] [place] [address], [place] [phone] documented in this encounter Visit Diagnoses Diagnosis Other assisted (current) 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 documented in this encounter Care Teams Senior C Web Developer Relationship Specialty Start Date End Date Regan Hogue MD [address] [place] [address] Dr [address] [place] PCP - General Internal Medicine 11/12/24 documented as of this encounter
== END 2025-03-13 11:38 | disposition home or self-care (01) ==
LOC: HO.HMCH 10:36
PROVIDERS: PCP Internal Medicine; Visit Provider Nurse Practitioner Family
DX: R42 Dizziness and giddiness (principal)

== ENCOUNTER → 2025-03-13 10:35 | Outpatient (BNVA) | payer MEDICARE, MEDICAID, SELFPAY | PROVIDERS: PCP Internal Medicine; Visit Provider Nurse Practitioner Family | DX: R42 Dizziness and giddiness (principal); Z87.891 Personal history of nicotine dependence | CPT/HCPCS: 96127; 99212 ==

== ENCOUNTER 2025-03-20 14:04 | Inpatient (IN) | payer MEDICARE, SELFPAY ==
[2025-03-20] VITALS (8 sets, daily range): BP systolic 104–143; BP diastolic 50–81; PULSE 86–96; RESP 17–29; TEMP 36.8–37; O2SAT 91–98; BMI 36.5
--- NOTE | ~2025-03-20 | XR_ITS ---
EXAMINATION: XR CHEST 2 VIEWS HISTORY: asthma, cough COMPARISON: Comparison is made with the prior examination dated 02/09/2025. FINDINGS: PA and lateral views of the chest are submitted. The examination is limited by low lung volumes and lordotic technique. The lungs are clear. There is no pleural effusion, pneumothorax, or pulmonary vascular congestion. Heart is enlarged. There is degenerative disc disease of the spine. XR/XR chest 2V IMPRESSION: Cardiomegaly. No acute cardiopulmonary abnormality. Electronically signed by: Ga Concepcion MD 03/20/2025 03:23 PM EDT
--- NOTE | 2025-03-20 14:30 | PC.NURSE ---
Addendum entered by Dari Reid RN 03/20/25 15:47: Patient is a 60 Y/O Male patient with PHMx significant for schizoaffective disorder, BPH, DM2, JUDY, HOCM, CHF, GERD, prolonged qt interval, and HTN. Pt lives in a [facility]CI and he is accompanied by Care-taker. Pt has a strong Pysch h/o and currently on lot of medications. Patient presents from daycare via EMS with a cough and sob. Patient refused to utilize his inhaler because he stated it does not work. Recieved a duoneb and solumedrol in route. Placed on director of cardiac rehabilitation and NSR noted. Lungs with coarse exp wheezes throught. Respirations even and sl labored, use of accessory muscles noted. Abdomen sl firm, distended, non-tender with positive bowel sounds. Positive pedal pulses with no edema. 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
--- NOTE | 2025-03-20 14:58 | ED.GENADULT ---
HPI - General Adult General Chief complaint: General Medical Stated complaint: ASTHMA EXAC PER EMS Time Seen by Provider: 03/20/25 14:41 Source: patient and EMS Mode of arrival: EMS Limitations: no limitations History of Present Illness ED Provider: SHOSHANA SAEED PA-C HPI narrative: This is a 60 year old male with a pmhx significant for T2DM, schizoaffective disorder, COPD, BPH, JUDY, CAD, HOCM, CHF, GERD, HTN, and prolonged QT interval who presents to the ED via EMS for coughing since this morning. He reports his cough began abruptly this morning with feeling of gasping for air . Reports clear sputum production with cough. No hemoptysis. Denies chest pain, fever, headache, rhinorrhea, diarrhea, nausea, or vomiting, LE pain/swelling. Related Data Home Medications ?Medication ?Instructions ?Recorded ?Confirmed aluminum-mag hydroxide-simethicone 10 ml PO TID PRN Indigestion 05/27/24 02/18/25 200 mg-200 mg-20 mg/5 mL oral susp aspirin 81 mg tablet,delayed 81 mg PO DAILY 11/20/24 02/18/25 release atorvastatin 20 mg tablet 20 mg PO BEDTIME 11/20/24 02/18/25 insulin glargine 100 unit/mL (3 15 unit subcut BEDTIME 11/20/24 11/26/24 mL) subcutaneous pen (Lantus Solostar U-100 Insulin) metoprolol succinate 100 mg 100 mg PO DAILY Hypertension 11/26/24 02/18/25 tablet,extended release 24 hr Previous Rx's ?Medication ?Instructions ?Recorded testosterone 1 % (50 mg/5 gram) 1 packet transdermal DAILY 30 days 07/02/24 transdermal gel packet #150 grams acetaminophen 325 mg tablet 650 mg (2 x 325 mg) PO Q6H PRN 11/11/24 (Tylenol) Pain (Scale Score 1-3) #60 tabs blood sugar diagnostic (OneTouch #100 ea 11/11/24 Verio test strips) blood-glucose meter (OneTouch #1 ea 11/11/24 Verio Flex Meter) lancets 33 gauge (OneTouch Delica #100 ea 11/11/24 Plus Lancet) linagliptin 5 mg tablet (Tradjenta) 5 mg PO DAILY 30 days #30 tabs 11/11/24 nitroglycerin 0.4 mg sublingual 0.4 mg sublingual Q5M PRN Chest 11/11/24 tablet Pain #14 tabs pen needle, diabetic 32 gauge x #100 ea 11/11/24 (BD Erica 2nd Gen Pen Needle) clozapine 100 mg tablet 100 mg PO BEDTIME 30 days #30 tabs 12/10/24 clozapine 25 mg tablet 25 mg PO BEDTIME 30 days #30 tabs 12/10/24 clozapine 50 mg tablet 50 mg PO BEDTIME 30 days #30 tabs 12/10/24 lurasidone 60 mg tablet 60 mg PO DAILY@1800 30 days #30 12/10/24 tabs nicotine (polacrilex) 4 mg buccal 4 mg buccal Q2H PRN Smoking 12/10/24 lozenge Cessation 30 days #108 ea polyethylene glycol 3350 17 gram 17 g PO DAILY constipation 30 days 12/10/24 oral powder packet #30 ea sennosides 8.6 mg-docusate sodium 2 tab PO DAILY constipation 30 12/10/24 50 mg tablet (Senna Plus) days #60 tabs tamsulosin 0.4 mg capsule 0.4 mg PO BEDTIME 30 days #30 caps 12/10/24 trazodone 50 mg tablet 50 mg PO BEDTIME PRN Insomnia 30 12/10/24 days #30 tabs albuterol sulfate 90 mcg/actuation 2 puff inhalation Q6H PRN 01/05/25 aerosol inhaler Shortness Of Breath Or Wheezing 30 days #1 inhaler cholecalciferol (vitamin D3) 25 25 mcg PO DAILY #90 tabs 01/28/25 mcg (1,000 unit) tablet omeprazole 20 mg capsule,delayed 40 mg (2 x 20 mg) PO BID@0630,1630 01/28/25 release #180 caps furosemide 40 mg tablet 40 mg PO DAILY #30 tabs 02/23/25 empagliflozin 10 mg tablet 10 mg PO QAM #30 tabs 03/19/25 (Jardiance) Allergies Allergy/AdvReac Type Severity Reaction Status Date / Time lithium [[place]] Allergy Severe Toxicity Verified 03/20/25 14:33 thiothixene Allergy Severe Swelling Verified 03/20/25 14:33 amoxicillin Allergy Mild Nose Bleed Verified 03/20/25 14:33 benztropine Allergy Unknown benztropine Verified 03/20/25 14:33 mesylate- unknown gabapentin [From NEURONTIN] Allergy Unknown Unknown Verified 03/20/25 14:33 fluphenazine [From Prolixin] Allergy Unknown Verified 03/20/25 14:33 barium sulfate AdvReac Intermediate Nausea and Verified 03/20/25 14:33 [BARIUM SULFATE] Vomiting haloperidol AdvReac Intermediate Muscle Verified 03/20/25 14:33 tension in legs diphenhydramine AdvReac Unknown urinary Verified 03/20/25 14:33 [From Benadryl] retention Review of Systems Review of Systems: Constitutional: No fever, chills, fatigue, night sweats, weight changes ENT/Mouth: No ear pain, hearing loss, nasal congestion, sinus pain, rhinorrhea, sore throat Eyes: No eye pain, swelling, redness, vision changes, discharge Cardio: No chest pain, palpitations, CHAVEZ, orthopnea, peripheral edema Pulm: No wheezing, dyspnea, hemoptysis, +cough +SOB GI: No nausea, vomiting, hematemesis, abdominal pain, diarrhea, constipation, hematochezia, melena : No irregular bleeding, dysuria, frequency, urgency, hesitancy, hematuria, flank pain, urinary flow changes, urinary incontinence or retention MSK: No back pain, neck pain, joint pain, myalgias Skin: No lesions, rashes Neuro: No weakness, numbness, paresthesias, LOC, dizziness, headache Psych: No anxiety/panic, depression, SI/HI, AH/VH All other systems reviewed and are negative. [facility] Past Medical History Attestation statement: The following information was validated with the patient. Source: old records reviewed and nursing notes reviewed Medical History Vertigo Nocturnal hypoxemia Schizoaffective disorder, bipolar type Diabetic neuropathy Type II diabetes with oysterman use of insulin BPH (benign prostatic hyperplasia) Diabetes mellitus Essential hypertension HOCM (hypertrophic obstructive cardiomyopathy) Coronary artery disease Osteoarthritis GERD without esophagitis Vitamin D deficiency Congestive heart failure COVID-19 Thought disorder Constipation COPD (chronic obstructive pulmonary disease) Smoker Diabetes mellitus Obesity (BMI 30-39.9) Pure hypercholesterolemia Prolonged QT interval Aggression Hypertension CHF (congestive heart failure) Cardiac arrhythmia Myocardial infarction Surgical History History of ankle surgery History of intestinal surgery History of transurethral resection of prostate Family History Family History Father Medical history unknown Mother Medical history unknown Sister Alive and well Social History Social History Household Members: Other Household Members Other:: [facility] residents Housing: House Housing Other:: [facility] Do you presently have visiting nurse or other home services: Yes Unable to assess alcohol history related to: Unknown Alcohol intake: current Alcohol intake frequency: a few times a month Alcohol type: beer Comment: 1:[address] Patient Tobacco Use Status: Former Tobacco user Tobacco use type: Cigarette Cigarette Packs Per Day: 0.5 Cigarettes Per Day: 10 Years Smoked: Many Smoked in Last 30 Days: Yes e-Cigarette/Vaping Use: Currently Using Second Hand Smoke Exposure: Yes Substance Use Type: Unknown Advance Directives: Yes Advance Directives on File: Yes Advance Directives Date on File: 01/14/24 service: Yes (attended [employer] 1980) Current occupational status: disabled Sexual orientation: Straight/Heterosexual Cognitive needs: Yes Hearing needs: No Vision needs: Yes Physical Exam ED Vital Signs: Vital Signs - 24 hr 03/20/25 14:29 03/20/25 14:35 03/20/25 14:35 Temperature 98.6 F 98.6 F Pulse Rate 96 94 Respiratory Rate 29 H 26 H 26 H Blood Pressure 115/72 104/50 L Pulse Oximetry 92 96 Oxygen Delivery Method Room Air Nasal Cannula Oxygen Flow Rate 2 03/20/25 15:20 03/20/25 16:00 03/20/25 18:19 Temperature 98.4 F Pulse Rate 94 86 88 Respiratory Rate 26 H 25 H 24 H Blood Pressure 118/54 L 124/63 Pulse Oximetry 95 97 Oxygen Delivery Method Nasal Cannula Nasal Cannula Oxygen Flow Rate 3 3 BMI result Body Mass Index 36.5 Tachypneic, satting 91-92% on room air, placed on 2 L nasal cannula General: Overall well-appearing Skin: Warm, dry, intact. No rashes or lesions. Head: Normocephalic, atraumatic. EENT: Hearing is intact b/l. Conjunctiva clear. Sclera is anicteric. Moist mucous membranes.? Neck: Supple without LAD Cardiac: Chest wall symmetric. RRR. Lungs: increased effort of breathing, no tripoding. Expiratory wheezes noted throughout bilateral lung stewart Abdomen: Soft, non-tender, non-distended. No rebound tenderness or guarding. Positive BS x4. Back: No midline spinous or paraspinal tenderness. No step off deformity. Ext: Upper and lower extremities atraumatic, without tenderness, deformity, swelling or erythema. no pitting edema. no calf tenderness. Neuro: AOx3. Normal speech. Course Course Course Narrative: CBC showing leukocytosis to 11.4 with left shift. Microcytic anemia, H and H stable when compared to priors and above transfusion threshold. Chemistry without acute electrolyte abnormality requiring intervention. Kidney function elevated with BUN of 24 and creatinine of 1.47. Random glucose 232. Liver function at baseline. BNP elevated to 293, improved when compared to priors. Troponin WNL at 14.8. EKG shows normal sinus rhythm with a rate of 90 beats per minute, prolonged QT at 396, inverted T-waves in 1, 2, aVL evident on priors. Lactic is WNL. Blood cultures sent. You tested negative for COVID, flu, RSV. full respiratory panel pending. Chest x-ray does not demonstrate infiltrate or consolidation to suggest pneumonia. vbg wnl. his ddimer is 240, which is below age adjusted cutoff. PE unlikely. > on ambulatory O2, patient has sustained 91% while on room air however was endorsing feeling short of breath. he was placed back on 2L NC in room > he has been treated with 2 updraft treatments, 120 mg of IV Solu-Medrol in route, IV magnesium in the department and IV ceftriaxone > he continues to have increased effort of breathing, tachypneic. > discussed case with hospitalist, Dr. Ray. patient will be admitted to medicine for further management. Medications Administered Discontinued Medications Generic Name Dose Route Start Last Admin Trade Name Freq PRN Reason Stop Dose Admin Ceftriaxone Sodium 1 gm 03/20/25 17:45 03/20/25 18:27 Ceftriaxone Sodium 1 Gm Vial IVPUSH 03/20/25 17:46 1 gm ONCE ONE Administration Albuterol Sulfate 2.5 mg/ 0 mg 03/20/25 15:16 03/20/25 15:18 Albuterol/Ipratropium 3 ml INHALE 03/20/25 15:17 1 dose ONCE ONE Administration Magnesium Sulfate 2 gm in 50 mls @ 25 mls/hr 03/20/25 16:35 03/20/25 16:51 Magnesium Sulfate/H2o IV 03/20/25 18:34 25 mls/hr ONCE ONE Administration Medical Decision Making Medical Decision Making [facility] Narrative: This is a 60 year old male with a pmhx significant for T2DM, schizoaffective disorder, COPD, BPH, JUDY, CAD, HOCM, CHF, GERD, HTN, and prolonged QT interval who presents to the ED via EMS for coughing since this morning. Tachypneic, satting 91% on room air, placed on 2 L nasal cannula. Noted increased effort of breathing, no tripoding. Lungs with diffuse expiratory wheezes throughout. RRR. No pitting edema or calf tenderness bilaterally. Differential diagnosis includes anemia, electrolyte abnormality, viral syndrome, bronchitis, pneumonia, asthma/COPD exacerbation, CHF, ACS, arrhythmia Lower suspicion for PE. Plan for labs, EKG, chest x-ray, D-dimer, breathing treatment and re-evaluation Differential Diagnosis Differential Diagnoses: The differential diagnosis associated with the presentation includes As above Admission/Observation Consideration of admission/observation: Escalation of care including admission/observation considered Patient admitted to medicine Consult Healthcare Provider Management of the patient was discussed with: Hospitalist (dr. ray) Lab Data [facility] Lab Attestation statement: I reviewed the patient's lab results. As above 03/20/25 15:53 03/20/25 15:53 Labs: Lab Results 03/20/25 03/20/25 03/20/25 Range/Units 15:53 17:37 17:46 WBC 11.4 H (4.8-10.8) X10*3/uL RBC 4.65 (4.60-5.80) X10*6/uL Hgb 11.2 L (14.0-18.0) g/dl Hct 37.0 L (42.0-52.0) % MCV 79.6 L (80.0-98.0) fL MCH 24.1 L (27.0-33.0) pg MCHC 30.3 L (31.0-36.0) g/dl RDW 19.1 H (11.0-16.0) % Plt Count 165 (160-400) X10*3/uL MPV 11.5 (9.4-12.4) fL Immature Gran % (Auto) 0.4 (0.0-0.4) % Neut % (Auto) 93.3 H (45-73) % Lymph % (Auto) 3.3 L (20-40) % [place] % (Auto) 2.4 (2-11) % Eos % (Auto) 0.4 (0-4) % Baso % (Auto) 0.2 (0-2) % Lymph # (Auto) 0.4 L (1.2-4.9) X10*3/uL [place] # (Auto) 0.3 (0.1-1.2) X10*3/uL Eos # (Auto) 0.0 (0.0-0.4) X10*3/uL Baso # (Auto) 0.0 (0.0-0.2) X10*3/uL Abs Immat Gran (auto) 0.05 H (0.00-0.03) X10*3/uL Absolute Neuts (auto) 10.6 H (2.0-8.3) x10*3/uL Absolute Nucleated RBC 0.000 (0.0-0.012) X10*3/uL Nucleated RBC % (auto) 0.0 (0.0-0.2) /100WBC Smear Tech's Comments VERIFIED D-Dimer High Sensitivty 240 NG/ML VBG pH 7.39 (7.32-7.43) VBG pCO2 42 mmHg VBG pO2 86 mmHg VBG HCO3 26 (22-26) mmol/L VBG O2 Saturation 97.0 % VBG Base Excess 1.3 mmol/L Sodium 143 (135-145) mmol/L Potassium 4.0 (3.3-5.1) mmol/L Chloride 107 (96-108) mmol/L Carbon Dioxide 24 (22-29) mmol/L Anion Gap 16 (12-20) BUN 24 H (9-16) mg/dL Creatinine 1.47 H (0.5-1.4) mg/dL Estim Creat Clear Calc 63.1 Estimated GFR 49 Random Glucose 232 H (60-115) mg/dL Lactic Acid 1.6 (0.5-2.0) mmol/L Calcium 9.7 D (8.4-10.2) mg/dL Magnesium 2.2 (1.6-2.6) mg/dL Total Bilirubin 0.3 (0.0-1.0) mg/dL AST 19 (5-37) U/L ALT 18 (0-40) U/L Alkaline Phosphatase 130 H (39-117) U/L Troponin I High Sens 14.8 (<3.5-35.0) ng/L B-Natriuretic Peptide 293 H (<100) pg/mL Total Protein 7.3 (6.5-8.0) g/dL Albumin 4.5 (3.5-5.0) g/dL Urine Color Urine Appearance Urine pH (5.0-9.0) Ur Specific [place] (1.005-1.025) Urine Protein (Neg-Trace) mg/dL Urine Glucose (UA) (Negative) mg/dL Urine Ketones (Negative) mg/dL Urine Blood (Negative) Urine Nitrite (Negative) Ur Leukocyte Esterase (Negative) Urine RBC (0-2) /HPF Urine WBC (0-5) /HPF Ur Squamous Epith Cells (0-2) /HPF Urine Bacteria (None Seen) Hyaline Casts (0-2) /LPF Influenza Type A (PCR) NEGATIVE (Negative) Influenza Type B (PCR) NEGATIVE (Negative) RSV RNA Qual (PCR) NEGATIVE (Negative) SARS-CoV-2 RNA (RT-PCR) NEGATIVE (Negative) 03/20/25 Range/Units 18:32 WBC (4.8-10.8) X10*3/uL RBC (4.60-5.80) X10*6/uL Hgb (14.0-18.0) g/dl Hct (42.0-52.0) % MCV (80.0-98.0) fL MCH (27.0-33.0) pg MCHC (31.0-36.0) g/dl RDW (11.0-16.0) % Plt Count (160-400) X10*3/uL MPV (9.4-12.4) fL Immature Gran % (Auto) (0.0-0.4) % Neut % (Auto) (45-73) % Lymph % (Auto) (20-40) % [place] % (Auto) (2-11) % Eos % (Auto) (0-4) % Baso % (Auto) (0-2) % Lymph # (Auto) (1.2-4.9) X10*3/uL [place] # (Auto) (0.1-1.2) X10*3/uL Eos # (Auto) (0.0-0.4) X10*3/uL Baso # (Auto) (0.0-0.2) X10*3/uL Abs Immat Gran (auto) (0.00-0.03) X10*3/uL Absolute Neuts (auto) (2.0-8.3) x10*3/uL Absolute Nucleated RBC (0.0-0.012) X10*3/uL Nucleated RBC % (auto) (0.0-0.2) /100WBC Smear Tech's Comments D-Dimer High Sensitivty NG/ML VBG pH (7.32-7.43) VBG pCO2 mmHg VBG pO2 mmHg VBG HCO3 (22-26) mmol/L VBG O2 Saturation % VBG Base Excess mmol/L Sodium (135-145) mmol/L Potassium (3.3-5.1) mmol/L Chloride (96-108) mmol/L Carbon Dioxide (22-29) mmol/L Anion Gap (12-20) BUN (9-16) mg/dL Creatinine (0.5-1.4) mg/dL Estim Creat Clear Calc Estimated GFR Random Glucose (60-115) mg/dL Lactic Acid (0.5-2.0) mmol/L Calcium (8.4-10.2) mg/dL Magnesium (1.6-2.6) mg/dL Total Bilirubin (0.0-1.0) mg/dL AST (5-37) U/L ALT (0-40) U/L Alkaline Phosphatase (39-117) U/L Troponin I High Sens (<3.5-35.0) ng/L B-Natriuretic Peptide (<100) pg/mL Total Protein (6.5-8.0) g/dL Albumin (3.5-5.0) g/dL Urine Color Yellow Urine Appearance Clear Urine pH 5.5 (5.0-9.0) Ur Specific [place] 1.025 (1.005-1.025) Urine Protein Negative (Neg-Trace) mg/dL Urine Glucose (UA) >=1000 H (Negative) mg/dL Urine Ketones Negative (Negative) mg/dL Urine Blood Negative (Negative) Urine Nitrite Negative (Negative) Ur Leukocyte Esterase Negative (Negative) Urine RBC 0-2 (0-2) /HPF Urine WBC 0-5 (0-5) /HPF Ur Squamous Epith Cells 0-2 (0-2) /HPF Urine Bacteria None Seen (None Seen) Hyaline Casts 0-2 (0-2) /LPF Influenza Type A (PCR) (Negative) Influenza Type B (PCR) (Negative) RSV RNA Qual (PCR) (Negative) SARS-CoV-2 RNA (RT-PCR) (Negative) Independent Interpretation I performed an independent interpretation of an: EKG and Plain X-Ray Interpretation: Chest x-ray without infiltrate or consolidation EKG showing normal sinus rhythm, rate of 90 beats per minute, prolonged QT at 396, inverted T-waves in 1, 2 and aVL, present on prior EKGs Radiology Impression Discussion of test interpretation with radiology: I have reviewed the radiologist's reading. Radiologist Impression: Date of Service: 03/20/25 Procedure(s): XR chest 2V Accession Number(s): [id number] cc: Regan Hogue MD; Shoshana Saeed~ EXAMINATION: XR CHEST 2 VIEWS HISTORY: asthma, cough COMPARISON: Comparison is made with the prior examination dated 02/09/2025. FINDINGS: PA and lateral views of the chest are submitted. The examination is limited by low lung volumes and lordotic technique. The lungs are clear. There is no pleural effusion, pneumothorax, or pulmonary vascular congestion. Heart is enlarged. There is degenerative disc disease of the spine. XR/XR chest 2V IMPRESSION: Cardiomegaly. No acute cardiopulmonary abnormality. Electronically signed by: Ga Concepcion MD 03/20/2025 03:23 PM EDT Independent Historian Clinical information obtained from an independent historian. History obtained from or confirmed by: EMS External Record Review External record reviewed: Inpatient record Prescription Management I considered prescription management with: Antibiotic and Other (steroid) Chronic Conditions Patient?s care impacted by: Other (copd/asthma, chf) Social Determinants Patient?s care significantly limited by Social Determinants of Health including: Other Social Determinant of Health Critical Care Time Critical Care Time Critical Care Time: Yes Total Critical Care Time: 36 Attestation: Critical care time in the amount of 36 minutes has been provided to the patient in terms of direct patient care, frequent reevaluation, consultation with hospitalist, review and interpretation of medical data and results, and management of potentially life-threatening conditions. This is all outside of any medical procedures. Discharge Plan Discharge Clinical Impression: CHF (congestive heart failure) Patient Disposition: Admitted As Inpatient
--- NOTE | 2025-03-20 15:03 | ECG_ITS ---
Test Reason : SOB Blood Pressure : */* mmHG Vent. Rate : 91 BPM Atrial Rate : 91 BPM P-R Int : 174 ms QRS Dur : 120 ms QT Int : 396 ms P-R-T Axes : 68 16 170 degrees QTcB Int : 487 ms Normal sinus rhythm Left ventricular hypertrophy with QRS widening and repolarization abnormality ( Sokolow-Vences , Jay product ) Abnormal ECG When compared with ECG of 17-Feb-2025 21:22, ST no longer depressed in Anterior leads Referred By: Shoshana Saeed Electronically Signed By: JEREMIAS MARTIN MD
[2025-03-20] MEDS: Albuterol Sulfate 2.5 MG, Albuterol/Iprat 2.5/0.5MG 3 ML 3 ML INHALE (15:18)
[2025-03-20 16:06] LABS: Hemoglobin 11.2 g/dl (14.0-18.0); Mean Corpuscular HGB Conc 30.3 g/dl (31.0-36.0); Neutrophils Percent Auto 93.3 % (45-73); Red Cell Distribution Width 19.1 % (11.0-16.0); SCAN SMEAR FLAG 1
[2025-03-20 16:08] LABS: Basophils Percent Auto 0.2 % (0-2); Eosinophils Percent Auto 0.4 % (0-4); Imm Gran Abs Auto 0.05 X10*3/uL (0.00-0.03); Imm Gran Pct Auto 0.4 % (0.0-0.4); Lymphocytes Absolute Auto 0.4 X10*3/uL (1.2-4.9); Lymphocytes Percent Auto 3.3 % (20-40); MANUAL DIFF FLAG SCAN; Mean Corpuscular Hemoglobin 24.1 pg (27.0-33.0); Mean Corpuscular Volume 79.6 fL (80.0-98.0); Mean Platelet Volume 11.5 fL (9.4-12.4); Monocytes Absolute Auto 0.3 X10*3/uL (0.1-1.2); Monocytes Percent Auto 2.4 % (2-11); Neutrophils Absolute Auto 10.6 x10*3/uL (2.0-8.3); Platelet Count 165 X10*3/uL (160-400); Red Blood Count 4.65 X10*6/uL (4.60-5.80); White Blood Count 11.4 X10*3/uL (4.8-10.8)
[2025-03-20 16:18] LABS: Alanine Aminotransferase 18 U/L (0-40); Albumin Level 4.5 g/dL (3.5-5.0); Alkaline Phosphatase 130 U/L (39-117); Anion Gap 16 (12-20); Aspartate Amino Transferase 19 U/L (5-37); Bilirubin Total 0.3 mg/dL (0.0-1.0); Blood Urea Nitrogen 24 mg/dL (9-16); Calcium 9.7 mg/dL (8.4-10.2); Carbon Dioxide 24 mmol/L (22-29); Chloride 107 mmol/L (96-108); Creatinine Clr Calc Pharmacy 63.1; Estimated Glomerular Filt Rate 49; Glucose Random 232 mg/dL (60-115); Magnesium 2.2 mg/dL (1.6-2.6); Sodium 143 mmol/L (135-145); Total Protein 7.3 g/dL (6.5-8.0)
[2025-03-20 16:22] LABS: B Type Natriuretic Peptide 293 pg/mL (<100); Troponin-I High Sensitivity 14.8 ng/L (<3.5-35.0)
[2025-03-20 16:27] LABS: PLT ABN DIST 1
[2025-03-20 16:44] LABS: SLIDE REVIEW VERIFIED
[2025-03-20 16:45] LABS: Influenza A PCR NEGATIVE (Negative); Influenza B PCR NEGATIVE (Negative); Resp Syncy Virus RNA Qual PCR NEGATIVE (Negative); SARS COV2 PCR INHOUSE NEGATIVE (Negative)
[2025-03-20] MEDS: Magnesium Sulfate/H2O 2 GM/50 ML PIGGYBACK IV (16:51)
[2025-03-20 17:48] LABS: Venous Blood Gas Refer to POC result
[2025-03-20 17:49] LABS: VBG Base Excess 1.3 mmol/L; VBG HCO3 26 mmol/L (22-26); VBG pCO2 42 mmHg; VBG pH 7.39 (7.32-7.43); VBG pO2 86 mmHg
[2025-03-20 17:57] LABS: D Dimer High Sensitivity 240 NG/ML
[2025-03-20 18:06] LABS: Lactic Acid 1.6 mmol/L (0.5-2.0)
[2025-03-20] MEDS: cefTRIAXone sodium 1 GM VIAL IVPUSH (18:27)
[2025-03-20 18:39] LABS: Appearance Urine Clear; Color Urine Yellow; Glucose Urine UA >=1000 mg/dL (Negative); Leukocyte Esterase Urine Negative (Negative); Nitrite Urine Negative (Negative); PH 5.5 (5.0-9.0); Specific Gravity - Urine 1.025 (1.005-1.025); UMIC TRIGGER UA YES; Urine Blood Negative (Negative); Urine Ketones Negative (Negative); Urine Protein Negative (Neg-Trace)
[2025-03-20 18:50] LABS: Bacteria Urine None Seen (None Seen); Hyaline Casts Urine 0-2 /LPF (0-2); RBC Urine 0-2 /HPF (0-2); Squamous Epithelial Cell Urine 0-2 /HPF (0-2); WBC Urine 0-5 /HPF (0-5)
--- NOTE | 2025-03-20 19:21 | PM.IMHP ---
History of Present Illness Date of Service: 03/20/25 Chief Complaint: Dyspnea This is a 60-year-old male with pertinent history of insulin-dependent type 2 diabetes mellitus, hypertension, mixed hyperlipidemia, HOCM, JUDY on 2 L supplemental oxygen at night, schizoaffective disorder, COPD who presents to the emergency department for evaluation of dyspnea. Patient states his symptoms started 1 day prior to presentation. He has been having shortness of breath and episodes of nonproductive cough. Also has associated wheezing not relieve with home inhalers. No orthopnea or PND. Denies shortness of breath is worse with activity. He denies fever, chills, chest pain, palpitations, abdominal pain, changes in urinary or bowel habits. No lower extremity leg swelling. In the emergency department, patient was found to have acute kidney injury with creatinine 1.47. Also noted to have ambulatory dyspnea despite DuoNeb treatments. Review of Systems Constitutional: Constitutional: Reports fatigue, Reports lethargy and Reports malaise Cardiovascular: Cardiovascular: Reports dyspnea on exertion Respiratory: Respiratory: Reports cough, Reports dyspnea on exertion and Reports wheezing Gastrointestinal: Gastrointestinal: Reports no additional gastrointestinal complaints Genitourinary: Genitourinary: Reports no additional male genitourinary complaints Endocrine: Endocrine: Reports fatigue Allergic/Immunologic: Allergic/Immunologic: Reports wheezing [facility] Medical History Vertigo Nocturnal hypoxemia Schizoaffective disorder, bipolar type Diabetic neuropathy Type II diabetes with medical terminologist use of insulin BPH (benign prostatic hyperplasia) Diabetes mellitus Essential hypertension HOCM (hypertrophic obstructive cardiomyopathy) Coronary artery disease Osteoarthritis GERD without esophagitis Vitamin D deficiency Congestive heart failure COVID-19 Thought disorder Constipation COPD (chronic obstructive pulmonary disease) Smoker Diabetes mellitus Obesity (BMI 30-39.9) Pure hypercholesterolemia Prolonged QT interval Aggression Hypertension CHF (congestive heart failure) Cardiac arrhythmia Myocardial infarction Family History Father Medical history unknown Mother Medical history unknown Sister Alive and well Surgical History History of ankle surgery History of intestinal surgery History of transurethral resection of prostate Social History Household Members: Other Household Members Other:: prison residents Housing: House Housing Other:: [facility] Do you presently have visiting nurse or other home services: Yes Unable to assess alcohol history related to: Unknown Alcohol intake: current Alcohol intake frequency: a few times a month Alcohol type: beer Comment: 1:[address] Patient Tobacco Use Status: Former Tobacco user Tobacco use type: Cigarette Cigarette Packs Per Day: 0.5 Cigarettes Per Day: 10 Years Smoked: Many Smoked in Last 30 Days: Yes e-Cigarette/Vaping Use: Currently Using Second Hand Smoke Exposure: Yes Substance Use Type: Unknown Advance Directives: Yes Advance Directives on File: Yes Advance Directives Date on File: 01/14/24 service: Yes (attended [employer] 1980) Current occupational status: disabled Sexual orientation: Straight/Heterosexual Cognitive needs: Yes Hearing needs: No Vision needs: Yes Meds Allergies Allergy/AdvReac Type Severity Reaction Status Date / Time lithium [[place]] Allergy Severe Toxicity Verified 03/20/25 14:33 thiothixene Allergy Severe Swelling Verified 03/20/25 14:33 amoxicillin Allergy Mild Nose Bleed Verified 03/20/25 14:33 benztropine Allergy Unknown benztropine Verified 03/20/25 14:33 mesylate- unknown gabapentin [From NEURONTIN] Allergy Unknown Unknown Verified 03/20/25 14:33 fluphenazine [From Prolixin] Allergy Unknown Verified 03/20/25 14:33 barium sulfate AdvReac Intermediate Nausea and Verified 03/20/25 14:33 [BARIUM SULFATE] Vomiting haloperidol AdvReac Intermediate Muscle Verified 03/20/25 14:33 tension in legs diphenhydramine AdvReac Unknown urinary Verified 03/20/25 14:33 [From Benadryl] retention Home Medications ?Medication ?Instructions ?Recorded ?Confirmed ?Last Taken ?Type aluminum-mag hydroxide-simethicone 10 ml PO TID PRN Indigestion 05/27/24 02/18/25 Unknown History 200 mg-200 mg-20 mg/5 mL oral susp aspirin 81 mg tablet,delayed 81 mg PO DAILY 11/20/24 02/18/25 11/26/24 08:01 History release atorvastatin 20 mg tablet 20 mg PO BEDTIME 11/20/24 02/18/25 11/25/24 20:24 History 20 insulin glargine 100 unit/mL (3 15 unit subcut BEDTIME 11/20/24 11/26/24 Unknown History mL) subcutaneous pen (Lantus Solostar U-100 Insulin) metoprolol succinate 100 mg 100 mg PO DAILY Hypertension 11/26/24 02/18/25 11/26/24 08:02 History tablet,extended release 24 hr Physical Exam Vital Signs and Narrative: Vital Signs: Last Vital Signs Temp 98.4 F 03/20/25 18:19 Pulse 88 03/20/25 18:19 Resp 24 H 03/20/25 18:19 BP 124/63 03/20/25 18:19 Pulse Ox 97 03/20/25 18:19 O2 Del Method Nasal Cannula 03/20/25 18:19 O2 Flow Rate 3 03/20/25 18:19 BMI result Body Mass Index 36.5 Middle-aged male lying in bed in mild distress on supplemental oxygen Neck supple, no JVD Regular rate and rhythm, S1-S2 heard Bilateral expiratory wheezing appreciated Abdomen soft nontender, no guarding, no rigidity Patient is awake, alert and oriented x3 ; no focal motor deficit Psych: Normal mood No pedal edema Results Labs 03/20/25 15:53 03/20/25 15:53 Labs: Laboratory Results - last 24 hr 03/20/25 03/20/25 03/20/25 15:53 17:37 17:46 MCV 79.6 L MCH 24.1 L MCHC 30.3 L RDW 19.1 H Plt Count 165 MPV 11.5 Immature Gran % (Auto) 0.4 Neut % (Auto) 93.3 H Lymph % (Auto) 3.3 L [place] % (Auto) 2.4 Eos % (Auto) 0.4 Baso % (Auto) 0.2 Lymph # (Auto) 0.4 L [place] # (Auto) 0.3 Eos # (Auto) 0.0 Baso # (Auto) 0.0 Abs Immat Gran (auto) 0.05 H Absolute Neuts (auto) 10.6 H Absolute Nucleated RBC 0.000 Nucleated RBC % (auto) 0.0 Smear Tech's Comments VERIFIED D-Dimer High Sensitivty 240 VBG pH 7.39 VBG pCO2 42 VBG pO2 86 VBG HCO3 26 VBG O2 Saturation 97.0 VBG Base Excess 1.3 Anion Gap 16 Estim Creat Clear Calc 63.1 Estimated GFR 49 Random Glucose 232 H Lactic Acid 1.6 Calcium 9.7 D Magnesium 2.2 Total Bilirubin 0.3 AST 19 ALT 18 Alkaline Phosphatase 130 H Troponin I High Sens 14.8 B-Natriuretic Peptide 293 H Total Protein 7.3 Albumin 4.5 Urine Color Urine Appearance Urine pH Ur Specific [place] Urine Protein Urine Glucose (UA) Urine Ketones Urine Blood Urine Nitrite Ur Leukocyte Esterase Urine RBC Urine WBC Ur Squamous Epith Cells Urine Bacteria Hyaline Casts Influenza Type A (PCR) NEGATIVE Influenza Type B (PCR) NEGATIVE RSV RNA Qual (PCR) NEGATIVE SARS-CoV-2 RNA (RT-PCR) NEGATIVE 03/20/25 18:32 MCV MCH MCHC RDW Plt Count MPV Immature Gran % (Auto) Neut % (Auto) Lymph % (Auto) [place] % (Auto) Eos % (Auto) Baso % (Auto) Lymph # (Auto) [place] # (Auto) Eos # (Auto) Baso # (Auto) Abs Immat Gran (auto) Absolute Neuts (auto) Absolute Nucleated RBC Nucleated RBC % (auto) Smear Tech's Comments D-Dimer High Sensitivty VBG pH VBG pCO2 VBG pO2 VBG HCO3 VBG O2 Saturation VBG Base Excess Anion Gap Estim Creat Clear Calc Estimated GFR Random Glucose Lactic Acid Calcium Magnesium Total Bilirubin AST ALT Alkaline Phosphatase Troponin I High Sens B-Natriuretic Peptide Total Protein Albumin Urine Color Yellow Urine Appearance Clear Urine pH 5.5 Ur Specific [place] 1.025 Urine Protein Negative Urine Glucose (UA) >=1000 H Urine Ketones Negative Urine Blood Negative Urine Nitrite Negative Ur Leukocyte Esterase Negative Urine RBC 0-2 Urine WBC 0-5 Ur Squamous Epith Cells 0-2 Urine Bacteria None Seen Hyaline Casts 0-2 Influenza Type A (PCR) Influenza Type B (PCR) RSV RNA Qual (PCR) SARS-CoV-2 RNA (RT-PCR) Imaging Radiologist's Impressions: Impressions Chest X-Ray 03/20/25 14:12 IMPRESSION: Cardiomegaly. No acute cardiopulmonary abnormality. Electronically signed by: Ga Concepcion MD 03/20/2025 03:23 PM EDT Assessment and Plan (1) Acute kidney injury: Status: Acute (2) Acute exacerbation of chronic obstructive pulmonary disease (COPD): Status: Acute Plan This is a 60-year-old male with pertinent history of insulin-dependent type 2 diabetes mellitus, hypertension, mixed hyperlipidemia, HOCM, JUDY on 2 L supplemental oxygen at night, QT prolongation, schizoaffective disorder, COPD who presents to the emergency department for evaluation of dyspnea. #. Acute kidney injury stage I: Monitor with crystalloid resuscitation. Avoid nephrotoxins #. Acute exacerbation of COPD: Scheduled and p.r.n. DuoNebs. Initiating systemic steroids. Continue home inhalers #. QT prolongation: Cardiac monitoring. Previous EKGs with prolonged QT. Potassium and magnesium okay, continue to monitor #. Schizoaffective disorder: Continue home mood stabilizers #. Insulin-dependent diabetes mellitus with hyperglycemia: Initiating basal plus insulin regimen #. Cardiomyopathy: On aspirin, beta-thee and statin #. Hypertension: On metoprolol #. Gastroesophageal reflux disease: On PPI #. JUDY: 2 L supplemental oxygen at bedtime Med rec pending DVT prophylaxis: Lovenox Full code. Discussed with patient at bedside Admit as inpatient and will require two night minimum hospital stay for monitoring of kidney function, respiratory status (as above), which is not possible in a lesser acute setting. Quality Stroke Does the patient have a stroke diagnosis?: No VTE Prior VTE?: No VTE Risk Level:: Medical - moderate - high VTE Device Contraindication: Treatment Not Indicated VTE Drug Contraindication: N/A - Med Ordered
[2025-03-20] MEDS: Enoxaparin Sodium 40 MG/0.4 ML SYRINGE SUBCUT (19:49)
[2025-03-20] MEDS: predniSONE 20 MG TABLET 40 MG PO (19:49)
[2025-03-20] MEDS: Lactated Ringers 500 ML IV (19:52)
--- NOTE | 2025-03-20 19:53 | PC.NURSE ---
Assumed care of this Pt at 1900.
[2025-03-20] MEDS: Albuterol/Iprat 2.5/0.5MG 3 ML AMPUL.NEB INHALE (20:18)
[2025-03-20 20:21] LABS: Glucose, Whole Blood 261 mg/dL (60-115)
[2025-03-20] MEDS: Insulin Lispro 100 UNIT/ML 3 ML VIAL SUBCUT (20:45)
[2025-03-20] MEDS: Insulin Glargine,Hum.rec.anlog 100 UNIT/ML 10 ML VIAL 15 UNIT SUBCUT (20:49)
--- NOTE | 2025-03-20 21:37 | PHA.MEDREC ---
Addendum entered by Reno Hancock [facility] 03/20/25 21:53: MED REC CHECKED BY [facility] Original Note: Pharmacy Consult ? Medication Reconciliation Pharmacy has completed the medication reconciliation. Utilized list from [facility]. Last dose for Clozaril was 03/20/25 per Janes at [facility].
[2025-03-20] MEDS: Benzonatate 100 MG CAPSULE PO (22:01)
[2025-03-20] MEDS: traZODone HCL 50 MG TABLET PO (22:31)
[2025-03-20 22:33] LABS: Glucose, Whole Blood 268 mg/dL (60-115)
[2025-03-21] VITALS (8 sets, daily range): BP systolic 105–128; BP diastolic 66–81; PULSE 84–97; RESP 18–20; TEMP 36.3–37.1; O2SAT 91–98; BMI 36.7
[2025-03-21] MEDS: Benzonatate 100 MG CAPSULE PO ×2 (06:09→20:23)
--- NOTE | 2025-03-21 06:11 | PC.NURSE ---
Pt medicated per dec for cough, auditory wheezing noted, RT called for breathing treatment, SPo2 AT 98% on 3L via NC
[2025-03-21] MEDS: Albuterol/Iprat 2.5/0.5MG 3 ML AMPUL.NEB INHALE ×4 (06:30→20:22)
[2025-03-21 06:53] LABS: Basophils Percent Auto 0.2 % (0-2); Hematocrit 35.1 % (42.0-52.0); Hemoglobin 10.6 g/dl (14.0-18.0); Imm Gran Abs Auto 0.05 X10*3/uL (0.00-0.03); Imm Gran Pct Auto 0.4 % (0.0-0.4); Lymphocytes Absolute Auto 0.4 X10*3/uL (1.2-4.9); Lymphocytes Percent Auto 3.1 % (20-40); MANUAL DIFF FLAG SCAN; Mean Corpuscular HGB Conc 30.2 g/dl (31.0-36.0); Mean Corpuscular Hemoglobin 24.4 pg (27.0-33.0); Mean Corpuscular Volume 80.7 fL (80.0-98.0); Mean Platelet Volume 11.5 fL (9.4-12.4); Monocytes Absolute Auto 0.6 X10*3/uL (0.1-1.2); Monocytes Percent Auto 4.7 % (2-11); Neutrophils Absolute Auto 11.6 x10*3/uL (2.0-8.3); Neutrophils Percent Auto 91.6 % (45-73); Platelet Count 162 X10*3/uL (160-400); Red Blood Count 4.35 X10*6/uL (4.60-5.80); SCAN SMEAR FLAG 1; White Blood Count 12.6 X10*3/uL (4.8-10.8)
[2025-03-21 06:59] LABS: Anion Gap 19 (12-20); Blood Urea Nitrogen 32 mg/dL (9-16); Calcium 9.6 mg/dL (8.4-10.2); Carbon Dioxide 22 mmol/L (22-29); Chloride 108 mmol/L (96-108); Creatinine Clr Calc Pharmacy 66.7; Estimated Glomerular Filt Rate 52; Glucose Random 324 mg/dL (60-115); Magnesium 2.7 mg/dL (1.6-2.6); Potassium 4.5 mmol/L (3.3-5.1); Sodium 144 mmol/L (135-145)
[2025-03-21 07:19] LABS: SLIDE REVIEW VERIFIED
[2025-03-21 07:20] LABS: Glucose, Whole Blood 266 mg/dL (60-115)
[2025-03-21] MEDS: Insulin Lispro 100 UNIT/ML 3 ML VIAL SUBCUT ×4 (07:21→20:23)
[2025-03-21] MEDS: 0.9 % Sodium Chloride Flush 3 ML SYRINGE IVFLUSH ×4 (07:22→20:22)
--- NOTE | 2025-03-21 07:26 | PC.NURSE ---
Pt awake, sitting on edge of bed eating breakfast.
[2025-03-21] MEDS: predniSONE 20 MG TABLET 40 MG PO (08:09)
[2025-03-21 08:42] LABS: Adenovirus PCR Not Detected (Not Detect.); Bordetella parapertussis PCR Not Detected (Not Detect.); Bordetella pertussis PCR Not Detected (Not Detect.); Chlamydia pneumoniae PCR Not Detected (Not Detect.); Coronavirus 229E PCR Not Detected (Not Detect.); Coronavirus HKU1 PCR Not Detected (Not Detect.); Coronavirus NL63 PCR Not Detected (Not Detect.); Coronavirus OC43 PCR Not Detected (Not Detect.); Human metapneumovirus PCR Not Detected (Not Detect.); Influenza A PCR Not Detected (Not Detect.); Influenza B PCR Not Detected (Not Detect.); Mycoplasma pneumoniae PCR Not Detected (Not Detect.); Parainfluenza 1 PCR Not Detected (Not Detect.); Parainfluenza 2 PCR Not Detected (Not Detect.); Parainfluenza 3 PCR Not Detected (Not Detect.); Parainfluenza 4 PCR Not Detected (Not Detect.); RSV PCR Not Detected (Not Detect.); Rhino/Enterovirus PCR Detected (Not Detect.)
--- NOTE | 2025-03-21 09:12 | PC.NURSE ---
Report received. Taken over at this time.
[2025-03-21 09:45] LABS: Influenza A H1 PCR Not Detected (Not Detect.); Influenza A H1-2009 PCR Not Detected (Not Detect.); Influenza A H3 PCR Not Detected (Not Detect.); SARS-CoV-2 PCR Not Detected (Not Detect.)
[2025-03-21 12:14] LABS: Glucose, Whole Blood 284 mg/dL (60-115)
--- NOTE | 2025-03-21 14:16 | P.PNIM_ITS ---
Subjective Subjective Date of Service: 03/21/25 Interval History: No acute issues overnight. Increased coughing with diet. Review of Systems Denies chest pain Admits shortness of breath worsening over the last week Denies nausea vomiting diarrhea Denies fever chills Physical Exam 2 Vital Signs: Vital Signs: Last Vital Signs Temp 98.2 F 03/20/25 22:32 Pulse 89 03/21/25 10:46 Resp 20 03/21/25 10:46 BP 122/81 03/21/25 05:55 Pulse Ox 97 03/21/25 05:55 O2 Del Method Nasal Cannula 03/21/25 05:55 O2 Flow Rate 3 03/20/25 22:32 BMI result Body Mass Index 36.5 Const: Other: Awake alert no acute distress Resp: Other: Diminished throughout with dense expiratory wheezes both stewart Cardio: Other: No S4; positive S1-S2; no S3 murmurs rubs or gallops GI: Other: Soft nontender nondistended normoactive bowel sounds Extrem: Other: No edema bilaterally Objective Data Active Medications Acetaminophen (Acetaminophen 325 Mg Tablet) 650 mg PO Q6H PRN PRN Reason: Pain, Mild 1-3,fever,headache Albuterol/Ipratropium (Albuterol/Iprat 2.5/0.5mg 3 Ml Ampul.Neb) 3 ml INHALE Q4H PRN PRN Reason: Shortness of Breath/Wheezing Albuterol/Ipratropium (Albuterol/Iprat 2.5/0.5mg 3 Ml Ampul.Neb) 3 ml INHALE RQ4H WHILE AWAKE [facility] Last Admin: 03/21/25 10:44 Dose: 3 ml Documented By: SCOVILJoel Benzonatate (Benzonatate 100 Mg Capsule) 100 mg PO TID PRN PRN Reason: Cough Last Admin: 03/21/25 06:09 Dose: 100 mg Documented By: SERRANX Calcium Carbonate (Calcium Carbonate 750 Mg Tab.Chew) 750 mg PO Q4H PRN PRN Reason: Heartburn Dextrose (Dextrose 50 % 25 Gm/50 Ml Syringe) 25 gm IVPUSH Q15M PRN; Protocol PRN Reason: per Hypoglycemia Standing Ord. Enoxaparin Sodium (Enoxaparin Sodium 40 Mg/0.4 Ml Syringe) 40 mg SUBCUT Q24H [facility] Last Admin: 03/20/25 19:49 Dose: 40 mg Documented By: STEPHANIE Glucose (Glucose Gel 15 Gm Gel..Gram.) 15 gm PO Q15M PRN; Protocol PRN Reason: per Hypoglycemia Standing Ord. Insulin Glargine (Insulin Glargine,Hum.Rec.Anlog 100 Unit/Ml 10 Ml Vial) 15 unit SUBCUT BEDTIME [facility] Last Admin: 03/20/25 20:49 Dose: 15 unit Documented By: STEPHANIE Insulin Human Lispro (Insulin Lispro 100 Unit/Ml 3 Ml Vial) 0 unit SUBCUT QIDACHS [facility]; Protocol Last Admin: 03/21/25 12:47 Dose: 6 unit Documented By: KIMBERLY Magnesium Hydroxide (Milk Of Magnesia 30 Ml Oral.Susp) 30 ml PO DAILY PRN PRN Reason: Constipation Melatonin (Melatonin 3 Mg Tablet) 6 mg PO BEDTIME PRN PRN Reason: Insomnia Ondansetron HCl (Ondansetron Hcl 4 Mg/2 Ml Vial) 4 mg IVPUSH Q8H PRN PRN Reason: Nausea and Vomiting Prednisone (Prednisone 20 Mg Tablet) 40 mg PO DAILY [facility] Last Admin: 03/21/25 08:09 Dose: 40 mg Documented By: STEPHANIE Sodium Chloride (0.9 % Sodium Chloride Flush 3 Ml Syringe) 3 ml IVFLUSH QSHIFT [facility] Last Admin: 03/21/25 07:22 Dose: 3 ml Documented By: STEPHANIE Labs 03/21/25 06:21 03/21/25 06:21 Labs: Laboratory Results - last 24 hr 03/20/25 03/20/25 03/20/25 15:53 15:53 17:37 MCV 79.6 L MCH 24.1 L MCHC 30.3 L RDW 19.1 H Plt Count 165 MPV 11.5 Immature Gran % (Auto) 0.4 Neut % (Auto) 93.3 H Lymph % (Auto) 3.3 L [place] % (Auto) 2.4 Eos % (Auto) 0.4 Baso % (Auto) 0.2 Lymph # (Auto) 0.4 L [place] # (Auto) 0.3 Eos # (Auto) 0.0 Baso # (Auto) 0.0 Abs Immat Gran (auto) 0.05 H Absolute Neuts (auto) 10.6 H Absolute Nucleated RBC 0.000 Nucleated RBC % (auto) 0.0 Smear Tech's Comments VERIFIED D-Dimer High Sensitivty 240 VBG pH VBG pCO2 VBG pO2 VBG HCO3 VBG O2 Saturation VBG Base Excess Anion Gap 16 Estim Creat Clear Calc 63.1 Estimated GFR 49 POC Glucose Random Glucose 232 H Lactic Acid 1.6 Calcium 9.7 D Magnesium 2.2 Total Bilirubin 0.3 AST 19 ALT 18 Alkaline Phosphatase 130 H Troponin I High Sens 14.8 B-Natriuretic Peptide 293 H Total Protein 7.3 Albumin 4.5 Urine Color Urine Appearance Urine pH Ur Specific [place] Urine Protein Urine Glucose (UA) Urine Ketones Urine Blood Urine Nitrite Ur Leukocyte Esterase Urine RBC Urine WBC Ur Squamous Epith Cells Urine Bacteria Hyaline Casts Respiratory Panel [place] See Note Adenovirus (Rapid PCR) Not Detected B.pert (TEM-PCR) Not Detected B.parapertussis DNA PCR Not Detected C. pneumoniae DNA (PCR) Not Detected Coronavirus OC43 (PCR) Not Detected Coronavirus HKU1 (PCR) Not Detected Coronavirus 229E (PCR) Not Detected Coronavirus NL63 (PCR) Not Detected Human Metapneumovir PCR Not Detected Influenza A (RT-PCR) Not Detected Influenza A (H1) PCR Not Detected Influ A (H1/09) PCR Not Detected Influenza A (H3) PCR Not Detected Influenza Type A (PCR) NEGATIVE Influenza B (RT-PCR) Not Detected Influenza Type B (PCR) NEGATIVE M. pneumoniae (PCR) Not Detected Parainfluenza 1 (PCR) Not Detected Parainfluenza 2 (PCR) Not Detected Parainfluenza 3 (PCR) Not Detected Parainfluenza 4 (PCR) Not Detected RSV (PCR) Not Detected RSV RNA Qual (PCR) NEGATIVE Entero/Rhino (PCR) Detected A SARS-CoV-2 RNA (RT-PCR) NEGATIVE Not Detected 03/20/25 03/20/25 03/20/25 17:46 18:32 20:17 MCV MCH MCHC RDW Plt Count MPV Immature Gran % (Auto) Neut % (Auto) Lymph % (Auto) [place] % (Auto) Eos % (Auto) Baso % (Auto) Lymph # (Auto) [place] # (Auto) Eos # (Auto) Baso # (Auto) Abs Immat Gran (auto) Absolute Neuts (auto) Absolute Nucleated RBC Nucleated RBC % (auto) Smear Tech's Comments D-Dimer High Sensitivty VBG pH 7.39 VBG pCO2 42 VBG pO2 86 VBG HCO3 26 VBG O2 Saturation 97.0 VBG Base Excess 1.3 Anion Gap Estim Creat Clear Calc Estimated GFR POC Glucose 261 H Random Glucose Lactic Acid Calcium Magnesium Total Bilirubin AST ALT Alkaline Phosphatase Troponin I High Sens B-Natriuretic Peptide Total Protein Albumin Urine Color Yellow Urine Appearance Clear Urine pH 5.5 Ur Specific [place] 1.025 Urine Protein Negative Urine Glucose (UA) >=1000 H Urine Ketones Negative Urine Blood Negative Urine Nitrite Negative Ur Leukocyte Esterase Negative Urine RBC 0-2 Urine WBC 0-5 Ur Squamous Epith Cells 0-2 Urine Bacteria None Seen Hyaline Casts 0-2 Respiratory Panel [place] Adenovirus (Rapid PCR) B.pert (TEM-PCR) B.parapertussis DNA PCR C. pneumoniae DNA (PCR) Coronavirus OC43 (PCR) Coronavirus HKU1 (PCR) Coronavirus 229E (PCR) Coronavirus NL63 (PCR) Human Metapneumovir PCR Influenza A (RT-PCR) Influenza A (H1) PCR Influ A (H1/09) PCR Influenza A (H3) PCR Influenza Type A (PCR) Influenza B (RT-PCR) Influenza Type B (PCR) M. pneumoniae (PCR) Parainfluenza 1 (PCR) Parainfluenza 2 (PCR) Parainfluenza 3 (PCR) Parainfluenza 4 (PCR) RSV (PCR) RSV RNA Qual (PCR) Entero/Rhino (PCR) SARS-CoV-2 RNA (RT-PCR) 03/20/25 03/21/25 03/21/25 22:21 06:21 07:12 MCV 80.7 MCH 24.4 L MCHC 30.2 L RDW 19.0 H Plt Count 162 MPV 11.5 Immature Gran % (Auto) 0.4 Neut % (Auto) 91.6 H Lymph % (Auto) 3.1 L [place] % (Auto) 4.7 Eos % (Auto) 0.0 Baso % (Auto) 0.2 Lymph # (Auto) 0.4 L [place] # (Auto) 0.6 Eos # (Auto) 0.0 Baso # (Auto) 0.0 Abs Immat Gran (auto) 0.05 H Absolute Neuts (auto) 11.6 H Absolute Nucleated RBC 0.000 Nucleated RBC % (auto) 0.0 Smear Tech's Comments VERIFIED D-Dimer High Sensitivty VBG pH VBG pCO2 VBG pO2 VBG HCO3 VBG O2 Saturation VBG Base Excess Anion Gap 19 Estim Creat Clear Calc 66.7 Estimated GFR 52 POC Glucose 268 H 266 H Random Glucose 324 H Lactic Acid Calcium 9.6 Magnesium 2.7 H Total Bilirubin AST ALT Alkaline Phosphatase Troponin I High Sens B-Natriuretic Peptide Total Protein Albumin Urine Color Urine Appearance Urine pH Ur Specific [place] Urine Protein Urine Glucose (UA) Urine Ketones Urine Blood Urine Nitrite Ur Leukocyte Esterase Urine RBC Urine WBC Ur Squamous Epith Cells Urine Bacteria Hyaline Casts Respiratory Panel [place] Adenovirus (Rapid PCR) B.pert (TEM-PCR) B.parapertussis DNA PCR C. pneumoniae DNA (PCR) Coronavirus OC43 (PCR) Coronavirus HKU1 (PCR) Coronavirus 229E (PCR) Coronavirus NL63 (PCR) Human Metapneumovir PCR Influenza A (RT-PCR) Influenza A (H1) PCR Influ A (H1/09) PCR Influenza A (H3) PCR Influenza Type A (PCR) Influenza B (RT-PCR) Influenza Type B (PCR) M. pneumoniae (PCR) Parainfluenza 1 (PCR) Parainfluenza 2 (PCR) Parainfluenza 3 (PCR) Parainfluenza 4 (PCR) RSV (PCR) RSV RNA Qual (PCR) Entero/Rhino (PCR) SARS-CoV-2 RNA (RT-PCR) 03/21/25 12:10 MCV MCH MCHC RDW Plt Count MPV Immature Gran % (Auto) Neut % (Auto) Lymph % (Auto) [place] % (Auto) Eos % (Auto) Baso % (Auto) Lymph # (Auto) [place] # (Auto) Eos # (Auto) Baso # (Auto) Abs Immat Gran (auto) Absolute Neuts (auto) Absolute Nucleated RBC Nucleated RBC % (auto) Smear Tech's Comments D-Dimer High Sensitivty VBG pH VBG pCO2 VBG pO2 VBG HCO3 VBG O2 Saturation VBG Base Excess Anion Gap Estim Creat Clear Calc Estimated GFR POC Glucose 284 H Random Glucose Lactic Acid Calcium Magnesium Total Bilirubin AST ALT Alkaline Phosphatase Troponin I High Sens B-Natriuretic Peptide Total Protein Albumin Urine Color Urine Appearance Urine pH Ur Specific Industry Urine Protein Urine Glucose (UA) Urine Ketones Urine Blood Urine Nitrite Ur Leukocyte Esterase Urine RBC Urine WBC Ur Squamous Epith Cells Urine Bacteria Hyaline Casts Respiratory Panel [place] Adenovirus (Rapid PCR) B.pert (TEM-PCR) B.parapertussis DNA PCR C. pneumoniae DNA (PCR) Coronavirus OC43 (PCR) Coronavirus HKU1 (PCR) Coronavirus 229E (PCR) Coronavirus NL63 (PCR) Human Metapneumovir PCR Influenza A (RT-PCR) Influenza A (H1) PCR Influ A (H1/) PCR Influenza A (H3) PCR Influenza Type A (PCR) Influenza B (RT-PCR) Influenza Type B (PCR) M. 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 1.Acute exacerbation of COPD -DuoNebs q.4 hours while awake -doxycycline (1) -methylprednisolone 60 mg IV q. 6 hours -nursing swallow evaluation 2.Insulin-dependent diabetes mellitus -continue outpatient therapies -lispro correctional scale -adjust as indicated 3.Cardiomyopathy -stable and well compensated 4.Hypertension -acceptable control on current therapy -adjust as indicated #. Gastroesophageal reflux disease: On PPI Lovenox Full code We will need ongoing hospitalization for IV steroids and DuoNeb therapies to treat COPD exacerbation Quality Stroke Does the patient have a stroke diagnosis?: No VTE Prior VTE?: No VTE Risk Level:: Medical - moderate - high VTE Device Contraindication: Treatment Not Indicated VTE Drug Contraindication: N/A - Med Ordered
--- NOTE | 2025-03-21 16:06 | MHC.CM.PN ---
PT REPORTS HE LIVES IN ONE SIDE OF THE [place] WHERE HE RECEIVES SUPPORT THROUGH [facility] FOR INDEPENDENT LIVING, THE OTHER HALF IS A [facility] RUN . PT ALSO ATTENDS A DAY PROGRAM, [facility], IN [place] HCP ON FILE WAS INVALID PER PREVIOUS CM NOTES, PT COMPLETED A NEW ONE TODAY NAMING HIS BROTHER LOKESH HIS AGENT PCP: TANIA LAO DELIVERED DCP: HOME WITH RESUMPTION OF [facility] SUPPORT TRANSPORT VIA [facility] OR SHUTTLE
[2025-03-21] MEDS: Omeprazole 40 MG CAPSULE.DR PO (16:13)
[2025-03-21] MEDS: Doxycycline Hyclate 100 MG in 0.9 % Sodium Chloride 250 ML 166.67 MG IV (16:16)
[2025-03-21 16:28] LABS: Glucose, Whole Blood 316 mg/dL (60-115)
[2025-03-21] MEDS: Lurasidone HCl 20 MG TABLET 60 MG PO (17:17)
[2025-03-21 20:10] LABS: Glucose, Whole Blood 370 mg/dL (60-115)
[2025-03-21] MEDS: Atorvastatin Calcium 20 MG TABLET PO (20:22)
[2025-03-21] MEDS: Enoxaparin Sodium 40 MG/0.4 ML SYRINGE SUBCUT (20:22)
[2025-03-21] MEDS: cloZAPine 25 MG TABLET PO (20:22)
[2025-03-21] MEDS: cloZAPine 25 MG TABLET 50 MG PO (20:23)
[2025-03-21] MEDS: Docusate Sodium 100 MG CAPSULE PO (20:23)
[2025-03-21] MEDS: cloZAPine 100 MG TABLET PO (20:23)
[2025-03-21] MEDS: Insulin Glargine,Hum.rec.anlog 100 UNIT/ML 10 ML VIAL 15 UNIT SUBCUT (20:23)
[2025-03-21] MEDS: traZODone HCL 50 MG TABLET PO (20:33)
[2025-03-22] VITALS (9 sets, daily range): BP systolic 112–141; BP diastolic 64–71; PULSE 76–100; RESP 18–20; TEMP 36.1–36.7; O2SAT 93–98
--- NOTE | 2025-03-22 01:32 | PC.NURSE ---
Pt had a bedtime NAP=[id number], Dr. Ray was made aware, covered per SS, snack tolerated
[2025-03-22] MEDS: Doxycycline Hyclate 100 MG in 0.9 % Sodium Chloride 250 ML 166.67 MG IV ×2 (01:54→15:52)
[2025-03-22] MEDS: Omeprazole 40 MG CAPSULE.DR PO ×2 (05:34→16:48)
[2025-03-22 07:46] LABS: Glucose, Whole Blood 247 mg/dL (60-115)
[2025-03-22] MEDS: Aspirin Enteric Coated 81 MG TABLET.DR PO (08:13)
[2025-03-22] MEDS: Insulin Lispro 100 UNIT/ML 3 ML VIAL SUBCUT ×4 (08:13→20:25)
[2025-03-22] MEDS: Acetaminophen 325 MG TABLET 650 MG PO (08:13)
[2025-03-22] MEDS: Metoprolol Succinate ER 100 MG TAB.ER.24H PO (08:13)
[2025-03-22] MEDS: 0.9 % Sodium Chloride Flush 3 ML SYRINGE IVFLUSH ×3 (08:14→19:52)
[2025-03-22] MEDS: Furosemide 40 MG TABLET PO (08:14)
[2025-03-22] MEDS: polyethylene glycoL 3350 17 GM POWD.PACK PO (08:14)
[2025-03-22] MEDS: Sennosides/Docusate Sodium TABLET 2 TAB PO (08:14)
[2025-03-22] MEDS: Docusate Sodium 100 MG CAPSULE PO ×2 (08:14→19:53)
[2025-03-22] MEDS: Albuterol/Iprat 2.5/0.5MG 3 ML AMPUL.NEB INHALE ×3 (08:31→20:14)
[2025-03-22 11:46] LABS: Glucose, Whole Blood 335 mg/dL (60-115)
--- NOTE | 2025-03-22 14:59 | P.PNIM_ITS ---
Subjective Subjective Date of Service: 03/22/25 Interval History: No acute issues overnight. Breathing somewhat improved per patient Review of Systems Denies chest pain Admits shortness of breath worsening over the last week Denies nausea vomiting diarrhea Denies fever chills Physical Exam 2 Vital Signs: Vital Signs: Last Vital Signs Temp 97.1 F 03/22/25 12:11 Pulse 92 03/22/25 12:35 Resp 18 03/22/25 12:35 BP 119/71 03/22/25 12:11 Pulse Ox 96 03/22/25 12:11 O2 Del Method Nasal Cannula 03/22/25 12:11 O2 Flow Rate 2 03/22/25 12:11 BMI result Body Mass Index 36.7 Const: Other: Awake alert no acute distress Resp: Other: Diminished throughout with dense expiratory wheezes both stewart Cardio: Other: No S4; positive S1-S2; no S3 murmurs rubs or gallops GI: Other: Soft nontender nondistended normoactive bowel sounds Extrem: Other: No edema bilaterally Objective Data Active Medications Acetaminophen (Acetaminophen 325 Mg Tablet) 650 mg PO Q6H PRN PRN Reason: Pain, Mild 1-3,fever,headache Last Admin: 03/22/25 08:13 Dose: 650 mg Documented By: KIMBERLY Albuterol/Ipratropium (Albuterol/Iprat 2.5/0.5mg 3 Ml Ampul.Neb) 3 ml INHALE Q4H PRN PRN Reason: Shortness of Breath/Wheezing Albuterol/Ipratropium (Albuterol/Iprat 2.5/0.5mg 3 Ml Ampul.Neb) 3 ml INHALE RQ4H WHILE AWAKE [facility] Last Admin: 03/22/25 12:33 Dose: 3 ml Documented By: ADAM Aspirin (Aspirin Enteric Coated 81 Mg Tablet.) 81 mg PO DAILY [facility] Last Admin: 03/22/25 08:13 Dose: 81 mg Documented By: KIMBERLY Atorvastatin Calcium (Atorvastatin Calcium 20 Mg Tablet) 20 mg PO BEDTIME [facility] Last Admin: 03/21/25 20:22 Dose: 20 mg Documented By: ASHILM Benzonatate (Benzonatate 100 Mg Capsule) 100 mg PO TID PRN PRN Reason: Cough Last Admin: 03/21/25 20:23 Dose: 100 mg Documented By: LEONARDO Calcium Carbonate (Calcium Carbonate 750 Mg Tab.Chew) 750 mg PO Q4H PRN PRN Reason: Heartburn Clozapine (Clozapine 25 Mg Tablet) 25 mg PO BEDTIME OZZY Last Admin: 03/21/25 20:22 Dose: 25 mg Documented By: LEONARDO Clozapine (Clozapine 100 Mg Tablet) 100 mg PO BEDTIME OZZY Last Admin: 03/21/25 20:23 Dose: 100 mg Documented By: LEONARDO Clozapine (Clozapine 25 Mg Tablet) 50 mg PO BEDTIME OZZY Last Admin: 03/21/25 20:23 Dose: 50 mg Documented By: LEONARDO Dextrose (Dextrose 50 % 25 Gm/50 Ml Syringe) 25 gm IVPUSH Q15M PRN; Protocol PRN Reason: per Hypoglycemia Standing Ord. Docusate Sodium (Docusate Sodium 100 Mg Capsule) 100 mg PO BID [facility] Last Admin: 03/22/25 08:14 Dose: 100 mg Documented By: KIMBERLY Enoxaparin Sodium (Enoxaparin Sodium 40 Mg/0.4 Ml Syringe) 40 mg SUBCUT Q24H [facility] Last Admin: 03/21/25 20:22 Dose: 40 mg Documented By: LEONARDO Furosemide (Furosemide 40 Mg Tablet) 40 mg PO DAILY OZZY; Protocol Last Admin: 03/22/25 08:14 Dose: 40 mg Documented By: KIMBERLY Glucose (Glucose Gel 15 Gm Gel..Gram.) 15 gm PO Q15M PRN; Protocol PRN Reason: per Hypoglycemia Standing Ord. Doxycycline Hyclate 100 mg/ (Sodium Chloride) 250 mls @ 166.67 mls/hr IV Q12H [facility] Last Infusion: 03/22/25 03:40 Dose: Infused Documented By: LEONARDO Insulin Glargine (Insulin Glargine,Hum.Rec.Anlog 100 Unit/Ml 10 Ml Vial) 15 unit SUBCUT BEDTIME [facility] Last Admin: 03/21/25 20:23 Dose: 15 unit Documented By: LEONARDO Insulin Human Lispro (Insulin Lispro 100 Unit/Ml 3 Ml Vial) 0 unit SUBCUT QIDACHS [facility]; Protocol Last Admin: 03/22/25 11:55 Dose: 8 unit Documented By: KIMBERLY Lurasidone HCl (Lurasidone Hcl 20 Mg Tablet) 60 mg PO DAILY@1800 [facility] Last Admin: 03/21/25 17:17 Dose: 60 mg Documented By: KIMBERLY Magnesium Hydroxide (Milk Of Magnesia 30 Ml Oral.Susp) 30 ml PO DAILY PRN PRN Reason: Constipation Melatonin (Melatonin 3 Mg Tablet) 6 mg PO BEDTIME PRN PRN Reason: Insomnia Methylprednisolone Sodium Succinate (Methylprednisolone Sod Succ 125 Mg Vial) 60 mg IVPUSH Q6H [facility] Last Admin: 03/22/25 08:14 Dose: 60 mg Documented By: KIMBERLY Metoprolol Succinate (Metoprolol Succinate Er 100 Mg Tab.Er.24h) 100 mg PO DAILY [facility]; Protocol Last Admin: 03/22/25 08:13 Dose: 100 mg Documented By: KIMBERLY Omeprazole (Omeprazole 40 Mg Capsule.Dr) 40 mg PO BID@0630,1630 [facility] Last Admin: 03/22/25 05:34 Dose: 40 mg Documented By: LEONARDO Ondansetron HCl (Ondansetron Hcl 4 Mg/2 Ml Vial) 4 mg IVPUSH Q8H PRN PRN Reason: Nausea and Vomiting Polyethylene Glycol (Polyethylene Glycol 3350 17 Gm Powd.Pack) 17 gm PO DAILY [facility] Last Admin: 03/22/25 08:14 Dose: 17 gm Documented By: KIMBERLY Senna/Docusate Sodium (Sennosides/Docusate Sodium Tablet) 2 tab PO DAILY [facility] Last Admin: 03/22/25 08:14 Dose: 2 tab Documented By: KIMBERLY Sodium Chloride (0.9 % Sodium Chloride Flush 3 Ml Syringe) 3 ml IVFLUSH QSHIFT [facility] Last Admin: 03/22/25 08:14 Dose: 3 ml Documented By: KIMBERLY Trazodone HCl (Trazodone Hcl 50 Mg Tablet) 50 mg PO BEDTIME PRN PRN Reason: Insomnia Last Admin: 03/21/25 20:33 Dose: 50 mg Documented By: LEONARDO Labs 03/21/25 06:21 03/21/25 06:21 Labs: Laboratory Results - last 24 hr 03/21/25 03/21/25 03/22/25 16:24 20:07 07:41 POC Glucose 316 H 370 H* 247 H 03/22/25 11:40 POC Glucose 335 H Microbiology Microbiology Results: Microbiology 03/20/25 18:01 Blood Culture - Preliminary Blood - Venous No growth after 24 hours. 03/20/25 17:37 Blood Culture - Preliminary Blood - Venous No growth after 24 hours. Assessment and Plan (1) Acute exacerbation of chronic obstructive pulmonary disease (COPD): Status: Acute (2) Type II diabetes with detention use of insulin: Status: Acute (3) Schizoaffective disorder, bipolar type: Status: Acute Plan 60-year-old male with pertinent history of insulin-dependent type 2 diabetes mellitus, hypertension, mixed hyperlipidemia, HOCM, JUDY on 2 L supplemental oxygen at night, QT prolongation, schizoaffective disorder, COPD who presents to the emergency department for evaluation of dyspnea. 1.Acute exacerbation of COPD -DuoNebs q.4 hours while awake -doxycycline (2) -methylprednisolone 60 mg IV q. 6 hours -wean O2 as tolerated 2.Insulin-dependent diabetes mellitus -continue outpatient therapies -lispro correctional scale -increase HS Lantus to 30 units -adjust as indicated 3.Cardiomyopathy -stable and well compensated 4.Hypertension -acceptable control on current therapy -adjust as indicated Lovenox Full code We will need ongoing hospitalization for IV steroids and DuoNeb therapies to treat COPD exacerbation Quality Stroke Does the patient have a stroke diagnosis?: No VTE Prior VTE?: No VTE Risk Level:: Medical - moderate - high VTE Device Contraindication: Treatment Not Indicated VTE Drug Contraindication: N/A - Med Ordered
[2025-03-22 16:28] LABS: Glucose, Whole Blood 304 mg/dL (60-115)
[2025-03-22] MEDS: Lurasidone HCl 20 MG TABLET 60 MG PO (16:48)
[2025-03-22] MEDS: Enoxaparin Sodium 40 MG/0.4 ML SYRINGE SUBCUT (19:52)
[2025-03-22] MEDS: cloZAPine 25 MG TABLET PO (19:53)
[2025-03-22] MEDS: Benzonatate 100 MG CAPSULE PO (19:53)
[2025-03-22] MEDS: cloZAPine 25 MG TABLET 50 MG PO (19:53)
[2025-03-22] MEDS: Atorvastatin Calcium 20 MG TABLET PO (19:53)
[2025-03-22] MEDS: traZODone HCL 50 MG TABLET PO (19:54)
[2025-03-22] MEDS: cloZAPine 100 MG TABLET PO (19:54)
[2025-03-22 20:19] LABS: Glucose, Whole Blood 317 mg/dL (60-115)
[2025-03-22] MEDS: Insulin Glargine,Hum.rec.anlog 100 UNIT/ML 10 ML VIAL 30 UNIT SUBCUT (20:25)
[2025-03-23] MEDS: Doxycycline Hyclate 100 MG in 0.9 % Sodium Chloride 250 ML 166.67 MG IV ×2 (01:56→14:35)
[2025-03-23 04:00] VITALS: BP 111/66; PULSE 79; RESP 18; TEMP 35.8; O2SAT 98
[2025-03-23] MEDS: Omeprazole 40 MG CAPSULE.DR PO ×2 (05:23→17:16)
[2025-03-23 06:17] LABS: Basophils Percent Auto 0.1 % (0-2); Hematocrit 32.7 % (42.0-52.0); Imm Gran Abs Auto 0.16 X10*3/uL (0.00-0.03); Imm Gran Pct Auto 1.3 % (0.0-0.4); Lymphocytes Absolute Auto 0.3 X10*3/uL (1.2-4.9); Lymphocytes Percent Auto 2.4 % (20-40); MANUAL DIFF FLAG SCAN; Mean Corpuscular HGB Conc 30.6 g/dl (31.0-36.0); Mean Corpuscular Hemoglobin 24.6 pg (27.0-33.0); Mean Corpuscular Volume 80.3 fL (80.0-98.0); Mean Platelet Volume 11.6 fL (9.4-12.4); Monocytes Absolute Auto 0.3 X10*3/uL (0.1-1.2); Monocytes Percent Auto 2.7 % (2-11); Neutrophils Absolute Auto 11.1 x10*3/uL (2.0-8.3); Neutrophils Percent Auto 93.5 % (45-73); Platelet Count 152 X10*3/uL (160-400); Red Blood Count 4.07 X10*6/uL (4.60-5.80); Red Cell Distribution Width 18.7 % (11.0-16.0); SCAN SMEAR FLAG 1; White Blood Count 11.9 X10*3/uL (4.8-10.8)
[2025-03-23 06:31] LABS: Alanine Aminotransferase 20 U/L (0-40); Albumin Level 3.7 g/dL (3.5-5.0); Alkaline Phosphatase 93 U/L (39-117); Anion Gap 13 (12-20); Aspartate Amino Transferase 18 U/L (5-37); Bilirubin Total 0.2 mg/dL (0.0-1.0); Blood Urea Nitrogen 45 mg/dL (9-16); Calcium 9.2 mg/dL (8.4-10.2); Carbon Dioxide 25 mmol/L (22-29); Chloride 109 mmol/L (96-108); Creatinine Clr Calc Pharmacy 75.6; Estimated Glomerular Filt Rate 60; Glucose Fasting 260 mg/dL (60-99); Potassium 4.9 mmol/L (3.3-5.1); Sodium 142 mmol/L (135-145); Total Protein 6.2 g/dL (6.5-8.0)
[2025-03-23 07:17] LABS: SLIDE REVIEW VERIFIED
[2025-03-23 07:34] LABS: Glucose, Whole Blood 254 mg/dL (60-115)
[2025-03-23 07:46] VITALS: BP 114/58; PULSE 80; RESP 18; TEMP 36.4; O2SAT 96
[2025-03-23] MEDS: Sennosides/Docusate Sodium TABLET 2 TAB PO (08:25)
[2025-03-23] MEDS: Aspirin Enteric Coated 81 MG TABLET.DR PO (08:25)
[2025-03-23] MEDS: Insulin Lispro 100 UNIT/ML 3 ML VIAL SUBCUT ×3 (08:25→17:16)
[2025-03-23] MEDS: 0.9 % Sodium Chloride Flush 3 ML SYRINGE IVFLUSH (08:26)
[2025-03-23] MEDS: Metoprolol Succinate ER 100 MG TAB.ER.24H PO (08:26)
[2025-03-23] MEDS: Furosemide 40 MG TABLET PO (08:26)
[2025-03-23] MEDS: polyethylene glycoL 3350 17 GM POWD.PACK PO (08:26)
[2025-03-23] MEDS: Docusate Sodium 100 MG CAPSULE PO (08:26)
[2025-03-23] MEDS: Benzonatate 100 MG CAPSULE PO (08:39)
[2025-03-23 11:20] LABS: Glucose, Whole Blood 260 mg/dL (60-115)
[2025-03-23] MEDS: Albuterol/Iprat 2.5/0.5MG 3 ML AMPUL.NEB INHALE ×2 (11:34→15:10)
[2025-03-23 11:35] VITALS: PULSE 72; RESP 16; O2SAT 95
[2025-03-23 12:08] VITALS: BP 135/67; PULSE 76; RESP 18; TEMP 36.4; O2SAT 98
--- NOTE | 2025-03-23 13:55 | PM.DS ---
DS: Providers Provider Date of Service: 03/23/25 Date of admission: 03/20/25 19:03 Date of discharge: 03/23/25 Primary care physician: Regan Hogue MD DS: Diagnosis Discharge Diagnosis (1) Acute exacerbation of chronic obstructive pulmonary disease (COPD): Status: Acute (2) Type II diabetes with shelter use of insulin: Status: Acute (3) Schizoaffective disorder, bipolar type: Status: Acute DS: Summary Hospital Course Hospital Course: 60-year-old male with pertinent history of insulin-dependent type 2 diabetes mellitus, hypertension, mixed hyperlipidemia, HOCM, JUDY on 2 L supplemental oxygen at night, schizoaffective disorder, COPD who presents to the emergency department for evaluation of dyspnea. Patient states his symptoms started 1 day prior to presentation. He has been having shortness of breath and episodes of nonproductive cough. Also has associated wheezing not relieve with home inhalers. No orthopnea or PND. Denies shortness of breath is worse with activity. He denies fever, chills, chest pain, palpitations, abdominal pain, changes in urinary or bowel habits. No lower extremity leg swelling. In the emergency department, patient was found to have acute kidney injury with creatinine 1.47. Also noted to have ambulatory dyspnea despite DuoNeb treatments. Hospital course Patient was admitted to general medical floor with volume repleted; kidney function returned to baseline. Patient started on doxycycline and pulse dose steroids along with the aggressive DuoNeb therapies and supplemental O2. Over the course of the next 72 hours patient was able to be without oxygen and is essentially back to baseline. At this point in time he will be discharged home to complete a course of doxycycline and a prednisone taper. He can follow up with his PCP next available Time Attestation Discharge Coordination Time (in mins): 35 Quality: Safe Use of Opioids Does Pt have an Active Cancer Diagnosis on the Problem List?: No Quality: Stroke Does the patient have a stroke diagnosis?: No Physical Exam Vital Signs: Vital Signs: Last Vital Signs Temp 97.5 F 03/23/25 12:08 Pulse 76 03/23/25 12:08 Resp 18 03/23/25 12:08 BP 135/67 03/23/25 12:08 Pulse Ox 98 03/23/25 12:08 O2 Del Method Room Air 03/23/25 12:08 O2 Flow Rate 1 03/23/25 07:46 BMI result Body Mass Index 36.7 Const: Other: Awake alert no acute distress Resp: Other: Diminished throughout with dense expiratory wheezes both stewart Cardio: Other: No S4; positive S1-S2; no S3 murmurs rubs or gallops GI: Other: Soft nontender nondistended normoactive bowel sounds Extrem: Other: No edema bilaterally DS: Data Data Completed and Pending Completed studies during hospitalization [Text1]: Procedures Assistance with Respiratory Ventilation, Less than 24 Consecutive Hours, Continuous Positive Airway Pressure (05/27/24) Drainage of Spinal Canal, Percutaneous Approach, Diagnostic (01/15/24) Fluoroscopy of Spinal Cord (01/15/24) Introduction of Remdesivir Anti-infective into Peripheral Vein, Percutaneous Approach, [employer] (09/25/21) Labs on day of discharge: Laboratory Results - last 24 hr 03/22/25 03/22/25 03/23/25 16:08 20:14 05:37 WBC 11.9 H RBC 4.07 L Hgb 10.0 L Hct 32.7 L MCV 80.3 MCH 24.6 L MCHC 30.6 L RDW 18.7 H Plt Count 152 L MPV 11.6 Immature Gran % (Auto) 1.3 H Neut % (Auto) 93.5 H Lymph % (Auto) 2.4 L [place] % (Auto) 2.7 Eos % (Auto) 0.0 Baso % (Auto) 0.1 Lymph # (Auto) 0.3 L [place] # (Auto) 0.3 Eos # (Auto) 0.0 Baso # (Auto) 0.0 Abs Immat Gran (auto) 0.16 H Absolute Neuts (auto) 11.1 H Absolute Nucleated RBC 0.000 Nucleated RBC % (auto) 0.0 Smear Tech's Comments VERIFIED Sodium 142 Potassium 4.9 Chloride 109 H Carbon Dioxide 25 Anion Gap 13 BUN 45 H Creatinine 1.23 Estim Creat Clear Calc 75.6 Estimated GFR 60 POC Glucose 304 H 317 H Fasting Glucose 260 H Calcium 9.2 Total Bilirubin 0.2 AST 18 ALT 20 Alkaline Phosphatase 93 Total Protein 6.2 L Albumin 3.7 03/23/25 03/23/25 07:28 11:14 WBC RBC Hgb Hct MCV MCH MCHC RDW Plt Count MPV Immature Gran % (Auto) Neut % (Auto) Lymph % (Auto) [place] % (Auto) Eos % (Auto) Baso % (Auto) Lymph # (Auto) [place] # (Auto) Eos # (Auto) Baso # (Auto) Abs Immat Gran (auto) Absolute Neuts (auto) Absolute Nucleated RBC Nucleated RBC % (auto) Smear Tech's Comments Sodium Potassium Chloride Carbon Dioxide Anion Gap BUN Creatinine Estim Creat Clear Calc Estimated GFR POC Glucose 254 H 260 H Fasting Glucose Calcium Total Bilirubin AST ALT Alkaline Phosphatase Total Protein Albumin Preliminary micro results at discharge 03/20/25 18:01 Blood Culture - Preliminary Blood - Venous No growth after 48 hours. 03/20/25 17:37 Blood Culture - Preliminary Blood - Venous No growth after 48 hours. Discharge Plan Discharge Anticipated Discharge Date/Time: 03/23/25 13:37 Patient Disposition: Home, Self-Care Discharge Diagnosis: Acute exacerbation of chronic obstructive pulmonary disease Referrals: Regan Hogue MD [Primary Care Provider] - 1 Week Discharge Medications: New doxycycline hyclate 100 mg tablet 100 mg PO BID Qty: 14 0RF prednisone 20 mg tablet See Rx Instructions .Route .COMPLEX Qty: 18 0RF Rx Instructions: 20 mg orally; 3 tabs daily for 3 days, 2 tabs daily for 3 days, 1 tab daily for 3 days Continued albuterol sulfate 90 mcg/actuation HFA aerosol inhaler 2 puff inhalation Q6H PRN (Reason: Shortness Of Breath Or Wheezing) 30 Days Qty: 1 0RF omeprazole 20 mg capsule,delayed release(DR/EC) 40 mg PO BID@0630,1630 Qty: 180 0RF furosemide 40 mg tablet 40 mg PO DAILY Qty: 30 1RF aspirin 81 mg tablet,delayed release (DR/EC) 81 mg PO DAILY atorvastatin 20 mg tablet 20 mg PO BEDTIME docusate sodium [Colace] 100 mg Capsule 100 mg PO BID clozapine 25 mg tablet 25 mg PO BEDTIME Rx Instructions: take with 50 and 100 mg tab total dose = 175 mg alum-mag hydroxide-simeth 200-200-20 mg/5 mL Suspension 10 ml PO TID PRN (Reason: Indigestion) Rx Instructions: administer between meals and at bedtime metoprolol succinate 100 mg tablet extended release 24 hr 100 mg PO DAILY Protocol: Hold for SBP/HR < HOLD for SBP < : 90 HOLD for HR < : 60 clozapine 100 mg tablet 100 mg PO BEDTIME 30 Days Qty: 30 0RF Rx Instructions: take with 50mg and 25mg tab clozapine 50 mg tablet 50 mg PO BEDTIME 30 Days Qty: 30 0RF Rx Instructions: take with 100mg and 25mg tab lurasidone 60 mg tablet 60 mg PO DAILY@1800 30 Days Qty: 30 0RF Rx Instructions: must administer with food (at least 350 calories) trazodone 50 mg Tablet 50 mg PO BEDTIME PRN (Reason: Insomnia) 30 Days Qty: 30 0RF polyethylene glycol 3350 17 gram powder in packet 17 g PO DAILY 30 Days Qty: 30 0RF Rx Instructions: hold for loose stool sennosides-docusate sodium [Senna Plus] 8.6-50 mg tablet 2 tab PO DAILY 30 Days Qty: 60 0RF Rx Instructions: hold for loose stool nicotine (polacrilex) 4 mg Lozenge 4 mg buccal Q2H PRN (Reason: Smoking Cessation) 30 Days Qty: 108 0RF (DME) lancets [OneTouch Delica Plus Lancet] 33 gauge misc See Rx Instructions .ROUTE .MEDSUPPLY Qty: 100 5RF Rx Instructions: Use as directed to check blood glucose twice daily. nitroglycerin 0.4 mg tablet, sublingual 0.4 mg SUBLINGUAL Q5M PRN (Reason: Chest Pain) Qty: 14 0RF Rx Instructions: do not exceed 3 doses per episode (DME) pen needle, diabetic [BD Erica 2nd Gen Pen Needle] 32 gauge x 5/32 needle See Rx Instructions .ROUTE .MEDSUPPLY Qty: 100 11RF Rx Instructions: As directed to administer lantus insulin once daily (DME) OneTouch Verio test strips Strip See Rx Instructions .ROUTE .MEDSUPPLY Qty: 100 5RF Rx Instructions: Use as directed to check blood glucose twice daily. (DME) blood-glucose meter [OneTouch Verio Flex meter] Misc See Rx Instructions .ROUTE .MEDSUPPLY Qty: 1 0RF Rx Instructions: Use as directed to check blood glucose twice daily for Type II diabetes mellitus. Discharge Orders: Discharge Order (Routine); Ordered 03/23/25 Ordered By: Rob Moseley Diet: Advance to usual diet Activity on Discharge: As tolerated Stand Alone Forms: Patient Portal Discharge page Print Language: Yoruba Care Plan Goals: Complete the course of doxycycline and prednisone as ordered Health Concerns: Resume all the medication she took before you came to the hospital Plan of Treatment: Follow up with the primary care next available appointment Assessment: See discharge summary
--- NOTE | 2025-03-23 14:50 | MHC.SL.SWA ---
Speech Pathologist Impression: Mild oral dysphagia d/t missing dentition, behaviors that reduce safety (overstuffing mouth, not taking breaths between bites, and speaking with mouth full) Risk of Aspiration Due to: Adverse behaviors that reduce safety Dysphasia Diet Status: Liquid Consistency and Strategies for Safe Swallow: Liquid Intake Recommendation: Thin Liquid Intake Strategies: Solid Food Consistency: Dietary Recommendations: Grnd/Mech Altered (NDD2) Additional Modifications to Solid Foods: Oral Medication Intake: Whole with Puree Please contact the pharmacy regarding appropriate crushable or liquid drug formulations that are available whenever modified delivery is recommended. Compensatory Strategies and Precautions to be Taken for Safe Swallow: Supervision While Eating and Drinking for Safe Swallow: Direct Supervision (1:1) Foods to Avoid: Swallowing Recommended Treatments: Recommendation for Speech: Speech Therapy through [facility] Comment: 60-year-old male with pertinent history of insulin-dependent type 2 diabetes mellitus, hypertension, mixed hyperlipidemia, HOCM, JUDY on 2 L supplemental oxygen at night, QT prolongation, schizoaffective disorder, COPD who presents to the emergency department for evaluation of dyspnea. Pt presents with adequate oropharyngeal coordination but dentures have been lost, therefore, pt reports oral phase of swallow less efficient. Pt will select foods he feels will be easy to chew. STOCK PULLER provided education on physical function of swallow, recommendations for safety and suggested pacing. Pt observed to overstuff his mouth during discussion of safety precautions, and questioned most recommendations. Pt expressed feeling defeated, as his physical health has declined and he now lives in an environment where he is navigating challenging behaviors of neighbors. Services in place at this time for assistance; pt would benefit from continued STOCK PULLER/PT/OT/HULL GRINDER services. Frequency/Duration: Date Range for Service Req: Timeline to reassess: Floriculturist Clinican/Clinical Fellow: No Supervisory Statement: I have reviewed and agree with the student/clinical fellow's documentation: N/A Speech Language Pathologist: Angela Giron M.S., [facility]
--- NOTE | 2025-03-23 14:52 | MHC.CM.PN ---
Addendum entered by Tangela Pierce 03/23/25 15:02: PT TOLD CM HE FELT HE WAS COUGHING TOO MUCH TO DC, CM RELAYED MESSAGE TO MD PER DISCUSSION, PT WILL REMAIN UNTIL AFTER [facility] AWARE AND DCS FAXED TO THEM AT [phone] Original Note: PT CLEARED TO DC TODAY, CM CALLED [phone] WHO REPORTED PT CAN RETURN ANYTIME, BUT WILL NEED TRANSPORT ARRANGED. CM INFORMED PT OF DC, HE ASKED IF HE COULD STAY ANOTHER DAY, HOWEVER CM REITERATED HE IS MEDICALLY CLEARED LYFT TRANSPORT WILL BE ARRANGED WHEN PT IS READY TO LEAVE [facility] WILL RESUME SERVICES
[2025-03-23 15:12] VITALS: PULSE 84; RESP 18; O2SAT 95
[2025-03-23 15:59] VITALS: BP 125/65; PULSE 84; RESP 20; TEMP 36.4; O2SAT 94
[2025-03-23 16:24] LABS: Glucose, Whole Blood 382 mg/dL (60-115)
[2025-03-23] MEDS: Lurasidone HCl 20 MG TABLET 60 MG PO (17:16)
== END 2025-03-23 17:54 | disposition home or self-care (01) | DRG 191 ==
LOC: HO.ED 16:15 → HO.EDOVER 19:08 → HO.S3 03-21 10:33
PROVIDERS: Physician Assistant Medical; Admitting Provider Student in an Organized Health Care Education/Training Program; Emergency Provider Emergency Medicine Emergency Medical Services; PCP Internal Medicine; Visit Provider Hospitalist
DX: J44.1 Chronic obstructive pulmonary disease with (acute) exacerbation (principal); I42.1 Obstructive hypertrophic cardiomyopathy; N17.9 Acute kidney failure, unspecified; E11.40 Type 2 diabetes mellitus with diabetic neuropathy, unspecified; E78.2 Mixed hyperlipidemia; Z99.81 Dependence on supplemental oxygen; F25.9 Schizoaffective disorder, unspecified; E11.65 Type 2 diabetes mellitus with hyperglycemia; R94.31 Abnormal electrocardiogram [ECG] [EKG]; I10 Essential (primary) hypertension; K21.9 Gastro-esophageal reflux disease without esophagitis; G47.33 Obstructive sleep apnea (adult) (pediatric); Z20.822 Contact with and (suspected) exposure to COVID-19; Z87.891 Personal history of nicotine dependence; Z79.82 Long term (current) use of aspirin; Z79.899 Other long term (current) 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
CPT/HCPCS: 0241U; 36415; 71046; 80048; 80053; 81001; 82803; 82947; 83605; 83735; 83880; 84484; 85025; 85379; 87040; 87633; 92610; 93005; 94640; 99221; 99285; J0696; J1271; J1650; J2919; J3475; J7120

== ENCOUNTER → 2025-03-20 15:02 | Outpatient (BNV) | payer MEDICARE, MEDICAID, SELFPAY | PROVIDERS: Emergency Provider Emergency Medicine Emergency Medical Services; PCP Internal Medicine; Visit Provider Radiology Diagnostic Radiology | DX: I51.7 Cardiomegaly (principal) | CPT/HCPCS: 71046 ==

== ENCOUNTER → 2025-03-20 15:03 | Outpatient (BNV) | payer MEDICARE, SELFPAY | PROVIDERS: Admitting Provider Student in an Organized Health Care Education/Training Program; Emergency Provider Emergency Medicine Emergency Medical Services; PCP Internal Medicine; Visit Provider Internal Medicine Cardiovascular Disease | DX: I51.7 Cardiomegaly (principal) | CPT/HCPCS: 93010 ==

== ENCOUNTER → 2025-03-20 19:03 | Outpatient (BNV) | payer MEDICARE, SELFPAY | PROVIDERS: Admitting Provider Student in an Organized Health Care Education/Training Program; Emergency Provider Emergency Medicine Emergency Medical Services; PCP Internal Medicine; Visit Provider Student in an Organized Health Care Education/Training Program | DX: J44.1 Chronic obstructive pulmonary disease with (acute) exacerbation (principal); F25.0 Schizoaffective disorder, bipolar type; E11.9 Type 2 diabetes mellitus without complications; Z79.4 Long term (current) use of insulin | CPT/HCPCS: 99232 ==

== ENCOUNTER 2025-04-22 18:10 | Emergency (ER) | payer MEDICARE, SELFPAY ==
--- NOTE | ~2025-04-22 | CT_ITS ---
CLINICAL HISTORY: fall CT head without contrast Comparison: CT/SR - CT HEAD/BRAIN WO IV CON - 02/17/25 23:59 EDT Findings: There is no acute intracranial hemorrhage. Ventricles are within normal limits in size. No mass effect or midline shift is present. The rodrigez-white matter differentiation appears normal. There is mild generalized cerebral atrophy. The visualized paranasal sinuses and mastoids are clear. There are bilateral scleral bands. No fractures are identified. IMPRESSION: No acute intracranial abnormality. This document has been electronically signed by: Isaca Peterson MD on 04/23/2025 02:58:04
[2025-04-22 18:20] VITALS: BP 160/90; PULSE 95; O2SAT 90; BMI 21.3
[2025-04-22 18:23] VITALS: BP 133/68; PULSE 92; RESP 18; TEMP 36.9; O2SAT 94
[2025-04-22 20:37] VITALS: BP 118/76; PULSE 83; RESP 18; TEMP 36.2; O2SAT 96
--- OUTSIDE RECORDS SUMMARY | 2025-04-22 21:24 | XMS_ITS | Clinical Summary ---
Author Organization [facility] Address [address] [address] Phone Care Team Providers Care Court Bailiff Or Sheriff Name Role Phone Regan Hogue MD Primary Care Provider [phone] Allergies Active Allergy Reactions Criticality Noted Date Comments Diphenhydramine Other (see comments) 12/19/2023 Haloperidol Other (see comments) 12/19/2023 Agenda Other (see comments) 12/19/2023 Thiothixene (Tiotixene) Other (see comments) Medications aspirin (ST BERT) 81 MG EC tablet Take 1 tablet [...] Schizoaffective disorder, not otherwise specifie d 12/20/2023 Agenda adverse reaction <Sequela> 12/20/2023 Acute nontraumatic kidney injury 12/20/2023 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 12/20/2023 Atherosclerotic heart diseas e of [place] coronary artery without angina pectoris, not otherwise specified 12/20/2023 Family History Relation Status Comments Father Mother Social History Tobacco Use Types Packs/Day Years Used Date Smoking Tobacco: Every Day Cigarettes 0.5 41.5 Started: 1984 Smokeless Tobacco: Never Tobacco Cessation:Ready [...] Cancer Screening: Sigmoidoscopy 01/11/2013 Influenza Vaccine (#1) 2025 Hepatitis B Vaccine Aged Out No longe r eligible based on patient's age to complete this topic Care Teams Court Bailiff Or Sheriff Relationship Specialty Start Date End Date Regan Hogue MD [address] [place] [address] PCP - General Internal Medicine 12/20/23
[2025-04-22 23:21] VITALS: BP 123/73; PULSE 83; RESP 18; TEMP 36.7; O2SAT 97
--- NOTE | 2025-04-23 01:44 | ED.FALL ---
HPI - Fall General Chief Complaint: Fall Stated Complaint: all w head strike minor abrasion controlled bleed Time Seen by Provider: 04/23/25 01:09 Source: patient and EMS Mode of arrival: EMS Limitations: no limitations History of Present Illness ED Provider: Dr. Nicole Rdz HPI Narrative: Patient comes to the emergency room complaining posterior headache. Patient states that he fell earlier today. Patient coming by ambulance from a intermediate. Patient is not the best historian. Denies neck pain, denies any other pain. This was a mechanical fall. Patient does report that he has been falling more frequent than usual. Patient denies any hematuria or dysuria, denies fever chills, denies chest pain or shortness of breath, denies dizziness. Related Data Home Medications ?Medication ?Instructions ?Recorded ?Confirmed aluminum-mag hydroxide-simethicone 10 ml PO TID PRN Indigestion 05/27/24 03/24/25 200 mg-200 mg-20 mg/5 mL oral susp aspirin 81 mg tablet,delayed 81 mg PO DAILY 11/20/24 03/24/25 release metoprolol succinate 100 mg 100 mg PO DAILY Hypertension 11/26/24 03/24/25 tablet,extended release 24 hr clozapine 25 mg tablet 25 mg PO BEDTIME 03/20/25 03/24/25 docusate sodium 100 mg capsule 100 mg PO BID 03/20/25 03/24/25 (Colace) Previous Rx's ?Medication ?Instructions ?Recorded blood sugar diagnostic (OneTouch #100 ea 11/11/24 Verio test strips) blood-glucose meter (OneTouch #1 ea 11/11/24 Verio Flex Meter) lancets 33 gauge (OneTouch Delica #100 ea 11/11/24 Plus Lancet) nitroglycerin 0.4 mg sublingual 0.4 mg sublingual Q5M PRN Chest 11/11/24 tablet Pain #14 tabs pen needle, diabetic 32 gauge x #100 ea 11/11/24 5/32 (BD Erica 2nd Gen Pen Needle) clozapine 100 mg tablet 100 mg PO BEDTIME 30 days #30 tabs 12/10/24 clozapine 50 mg tablet 50 mg PO BEDTIME 30 days #30 tabs 12/10/24 lurasidone 60 mg tablet 60 mg PO DAILY@1800 30 days #30 12/10/24 tabs nicotine (polacrilex) 4 mg buccal 4 mg buccal Q2H PRN Smoking 12/10/24 lozenge Cessation 30 days #108 ea polyethylene glycol 3350 17 gram 17 g PO DAILY constipation 30 days 12/10/24 oral powder packet #30 ea sennosides 8.6 mg-docusate sodium 2 tab PO DAILY constipation 30 12/10/24 50 mg tablet (Senna Plus) days #60 tabs trazodone 50 mg tablet 50 mg PO BEDTIME PRN Insomnia 30 12/10/24 days #30 tabs albuterol sulfate 90 mcg/actuation 2 puff inhalation Q6H PRN 01/05/25 aerosol inhaler Shortness Of Breath Or Wheezing 30 days #1 inhaler omeprazole 20 mg capsule,delayed 40 mg (2 x 20 mg) PO BID@0630,1630 01/28/25 release #180 caps furosemide 40 mg tablet 40 mg PO DAILY #30 tabs 02/23/25 doxycycline hyclate 100 mg tablet 100 mg PO BID #14 tabs 03/23/25 prednisone 20 mg tablet See Rx Instructions .Route 03/23/25 .COMPLEX #18 tabs atorvastatin 20 mg tablet 20 mg PO BEDTIME #90 tabs 04/14/25 Allergies Allergy/AdvReac Type Severity Reaction Status Date / Time lithium ([place]) Allergy Severe Toxicity Verified 04/22/25 18:22 thiothixene Allergy Severe Swelling Verified 04/22/25 18:22 amoxicillin Allergy Mild Nose Bleed Verified 04/22/25 18:22 benztropine Allergy Unknown benztropine Verified 04/22/25 18:22 mesylate- unknown gabapentin (From NEURONTIN) Allergy Unknown Unknown Verified 04/22/25 18:22 fluphenazine (From Prolixin) Allergy Unknown Verified 04/22/25 18:22 barium sulfate (BARIUM AdvReac Intermediate Nausea and Verified 04/22/25 18:22 SULFATE) Vomiting haloperidol AdvReac Intermediate Muscle Verified 04/22/25 18:22 tension in legs diphenhydramine (From AdvReac Unknown urinary Verified 04/22/25 18:22 Benadryl) retention Review of Systems Review of Systems: Constitutional : No Weight loss, No Fever, No Chills, No Night Sweats, No Fatigue, No Malaise ENT/Mouth : No Hearing loss, No Ear Pain, No Nasal Congestion, No Sinus Pain, No Hoarseness, No sore throat, No Rhinorrhea, No Swallowing Difficulty Eyes: No Eye Pain, No Swelling, No Redness, No Foreign Body, No Discharge, No Vision Changes Cardiovascular : No Chest Pain, No SOB, No Dyspnea on Exertion, No Orthopnea, No Edema, No Palpitations Respiratory : No Cough, No Sputum, No Wheezing, No Smoke Exposure, No Dyspnea Gastrointestinal : No Nausea, No Vomiting, No Diarrhea, No Constipation, No abdominal Pain, No Hematochezia, No Melena Genitourinary : no irregular bleeding, No Dysuria, No Urinary Frequency, No Hematuria, No Urinary Incontinence, No Urgency, No Flank Pain, No Urinary Flow Changes, No Hesitancy Musculoskeletal : No joint pain, No Myalgias, No Joint Swelling Skin : No Skin Lesions, No rash Neuro : No Weakness, No Numbness, No Paresthesias, No Loss of Consciousness, No Dizziness, complaining of mild posterior Headache after a head to be strike Psych : No Anxiety/Panic, No Depression, No SI/HI/AH/VH, No Social Issues, Heme/Lymph: No Bruising, No Bleeding,No Lymphadenopathy Endocrine : No Polyuria, No Polydipsia, No Temperature Intolerance PMFSH Past Medical History Medical History Vertigo Nocturnal hypoxemia Schizoaffective disorder, bipolar type Diabetic neuropathy Type II diabetes 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 use of insulin BPH (benign prostatic hyperplasia) Diabetes mellitus Essential hypertension HOCM (hypertrophic obstructive cardiomyopathy) Coronary artery disease Osteoarthritis GERD without esophagitis Vitamin D deficiency Congestive heart failure COVID-19 Thought disorder Constipation COPD (chronic obstructive pulmonary disease) Smoker Diabetes mellitus Obesity (BMI 30-39.9) Pure hypercholesterolemia Prolonged QT interval Aggression Hypertension CHF (congestive heart failure) Cardiac arrhythmia Myocardial infarction Surgical History History of ankle surgery History of intestinal surgery History of transurethral resection of prostate Family History Family History Father Medical history unknown Mother Medical history unknown Sister Alive and well Social History Social History Household Members: Other Household Members Other:: Room mate Housing: House Housing Other:: [facility] Do you presently have visiting nurse or other home services: Yes Unable to assess alcohol history related to: Unknown Alcohol intake: current Alcohol intake frequency: holidays/special occasions only Alcohol type: beer Comment: 1:[address] Patient Tobacco Use Status: Former Tobacco user Tobacco use type: Cigarette Cigarette Packs Per Day: 0.5 Cigarettes Per Day: 10 Years Smoked: Many Smoked in Last 30 Days: Yes e-Cigarette/Vaping Use: Currently Using Second Hand Smoke Exposure: Yes Use of substances other than those prescribed or required for medical reasons: No Substance Use Type: Unknown Advance Directives: Yes Advance Directives on File: Yes Advance Directives Date on File: 01/14/24 Do you have a plan to hurt others: No Plan service: No Current occupational status: disabled Sexual orientation: Straight/Heterosexual Cognitive needs: Yes Hearing needs: No Vision needs: Yes Physical Exam Vital Signs: Vital Signs: Last Vital Signs Temp 98.2 F 04/23/25 01:49 Pulse 84 04/23/25 01:49 Resp 18 04/23/25 01:49 BP 123/73 04/23/25 01:49 Pulse Ox 99 04/23/25 01:49 O2 Del Method Nasal Cannula 04/23/25 01:49 O2 Flow Rate 2 04/23/25 01:49 BMI result Body Mass Index 21.3 Medical Decision Making Medical Decision Making [facility] Narrative: CT scan of the head does not show any acute abnormality Patient did not want to provide a urine sample. Patient states that he feels well. Patient instructed to follow-up with his PCP Differential Diagnosis Differential Diagnoses: The differential diagnosis associated with the presentation includes (Multiple falls, UTI which could not be ruled out, contusion, concussion) Admission/Observation Consideration of admission/observation: Escalation of care including admission/observation considered (Given history of multiple falls within couple of months, at patient's/observation was considered.) Independent Interpretation I performed an independent interpretation of an: CT Scan Radiology Impression Discussion of test interpretation with radiology: I have reviewed the radiologist's reading. Radiologist Impression: There is no acute intracranial hemorrhage. Ventricles are within normal limits in size. No mass effect or midline shift is present. The rodrigez-white matter differentiation appears normal. There is mild generalized cerebral atrophy. The visualized paranasal sinuses and mastoids are clear. There are bilateral scleral bands. No fractures are identified. IMPRESSION: No acute intracranial abnormality. Critical Care Time Critical Care Time Critical Care Time: Yes Total Critical Care Time: 35 Attestation: I have personally provided critical care time. Time includes review of lab data, radiology results, discussion with consultants, and monitoring for potential decompensation. Intervention performed as documented. Discharge Plan Discharge Clinical Impression: Fall, Contusion Patient Disposition: Home, Self-Care Additional Instructions: Please follow-up with your primary care physician tomorrow. If you have any worsening or new symptoms, please return to the emergency room or call 911 Prescriptions: No Action albuterol sulfate 90 mcg/actuation HFA aerosol inhaler 2 puff inhalation Q6H PRN (Reason: Shortness Of Breath Or Wheezing) 30 Days Qty: 1 0RF omeprazole 20 mg capsule,delayed release(DR/EC) 40 mg PO BID@0630,1630 Qty: 180 0RF furosemide 40 mg tablet 40 mg PO DAILY Qty: 30 1RF atorvastatin 20 mg tablet 20 mg PO BEDTIME Qty: 90 0RF aspirin 81 mg tablet,delayed release (DR/EC) 81 mg PO DAILY docusate sodium [Colace] 100 mg Capsule 100 mg PO BID clozapine 25 mg tablet 25 mg PO BEDTIME Rx Instructions: take with 50 and 100 mg tab total dose = 175 mg doxycycline hyclate 100 mg tablet 100 mg PO BID Qty: 14 0RF prednisone 20 mg tablet See Rx Instructions .Route .COMPLEX Qty: 18 0RF Rx Instructions: 20 mg orally; 3 tabs daily for 3 days, 2 tabs daily for 3 days, 1 tab daily for 3 days alum-mag hydroxide-simeth 200-200-20 mg/5 mL Suspension 10 ml PO TID PRN (Reason: Indigestion) Rx Instructions: administer between meals and at bedtime metoprolol succinate 100 mg tablet extended release 24 hr 100 mg PO DAILY Protocol: Hold for SBP/HR < HOLD for SBP < : 90 HOLD for HR < : 60 clozapine 100 mg tablet 100 mg PO BEDTIME 30 Days Qty: 30 0RF Rx Instructions: take with 50mg and 25mg tab clozapine 50 mg tablet 50 mg PO BEDTIME 30 Days Qty: 30 0RF Rx Instructions: take with 100mg and 25mg tab lurasidone 60 mg tablet 60 mg PO DAILY@1800 30 Days Qty: 30 0RF Rx Instructions: must administer with food (at least 350 calories) trazodone 50 mg Tablet 50 mg PO BEDTIME PRN (Reason: Insomnia) 30 Days Qty: 30 0RF polyethylene glycol 3350 17 gram powder in packet 17 g PO DAILY 30 Days Qty: 30 0RF Rx Instructions: hold for loose stool sennosides-docusate sodium [Senna Plus] 8.6-50 mg tablet 2 tab PO DAILY 30 Days Qty: 60 0RF Rx Instructions: hold for loose stool nicotine (polacrilex) 4 mg Lozenge 4 mg buccal Q2H PRN (Reason: Smoking Cessation) 30 Days Qty: 108 0RF (DME) lancets [OneTouch Delica Plus Lancet] 33 gauge misc See Rx Instructions .ROUTE .MEDSUPPLY Qty: 100 5RF Rx Instructions: Use as directed to check blood glucose twice daily. nitroglycerin 0.4 mg tablet, sublingual 0.4 mg SUBLINGUAL Q5M PRN (Reason: Chest Pain) Qty: 14 0RF Rx Instructions: do not exceed 3 doses per episode (DME) pen needle, diabetic [BD Erica 2nd Gen Pen Needle] 32 gauge x 5/32 needle See Rx Instructions .ROUTE .MEDSUPPLY Qty: 100 11RF Rx Instructions: As directed to administer lantus insulin once daily (DME) OneTouch Verio test strips Strip See Rx Instructions .ROUTE .MEDSUPPLY Qty: 100 5RF Rx Instructions: Use as directed to check blood glucose twice daily. (DME) blood-glucose meter [OneTouch Verio Flex meter] Misc See Rx Instructions .ROUTE .MEDSUPPLY Qty: 1 0RF Rx Instructions: Use as directed to check blood glucose twice daily for Type II diabetes mellitus. Print Language: Argentine
[2025-04-23 01:49] VITALS: BP 123/73; PULSE 84; RESP 18; TEMP 36.8; O2SAT 99
[2025-04-23 03:51] VITALS: BP 105/68; PULSE 87; RESP 18; TEMP 36.7; O2SAT 97
--- NOTE | 2025-04-23 04:12 | PC.NURSE ---
multiple attempts to call contact listed, each attempt is a busy signal. will continue to call
--- NOTE | 2025-04-23 04:21 | PC.NURSE ---
ambulates w/ steady gait
--- NOTE | 2025-04-23 04:47 | PC.NURSE ---
continue to be unable to reach care home d/t busy signal.
[2025-04-23 06:09] VITALS: BP 137/82; PULSE 84; RESP 18; TEMP 36.7; O2SAT 98
--- NOTE | 2025-04-23 06:27 | PC.NURSE ---
continue to be unable to reach staff
[2025-04-23 07:38] VITALS: BP 137/82; PULSE 84; RESP 18; TEMP 36.7; O2SAT 98
--- NOTE | 2025-04-23 07:38 | PC.NURSE ---
[facility] anjelica/mel booked for pt. Spoke with Charlene at pt's halfway and they will be expecting pt.
== END 2025-04-23 07:39 | disposition home or self-care (01) ==
PROVIDERS: Emergency Provider Emergency Medicine
DX: S09.90XA Unspecified injury of head, initial encounter (principal); R51.9 Headache, unspecified; X58.XXXA Exposure to other specified factors, initial encounter; Y93.9 Activity, unspecified; Y92.9 Unspecified place or not applicable; Y99.8 Other external cause status; Z79.899 Other long term (current) 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; Z91.81 History of falling
CPT/HCPCS: 70450; 99284

== ENCOUNTER → 2025-04-23 01:30 | Outpatient (BNV) | payer MEDICARE, SELFPAY | PROVIDERS: Emergency Provider Emergency Medicine; Visit Provider Radiology Diagnostic Radiology | DX: G31.9 Degenerative disease of nervous system, unspecified (principal) | CPT/HCPCS: 70450 ==

== ENCOUNTER 2025-05-05 07:57 | Outpatient (REF) | payer MEDICARE, SELFPAY ==
--- OUTSIDE RECORDS SUMMARY | 2025-05-05 07:59 | XMS_ITS | Clinical Summary ---
Author Organization [facility] Address [address] [address] Phone Care Team Providers Care Knowledge Engineer Name Role Phone Regan Hogue MD Primary Care Provider [phone] Allergies Active Allergy Reactions Criticality Noted Date Comments Diphenhydramine Other (see comments) 12/19/2023 Haloperidol Other (see comments) 12/19/2023 [place] Other (see comments) 12/19/2023 Thiothixene (Tiotixene) Other [...] Schizoaffective disorder, not otherwise specifie d 12/20/2023 [place] adverse reaction <Sequela> 12/20/2023 Acute nontraumatic kidney injury 12/20/2023 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 12/20/2023 Atherosclerotic heart diseas e of [place] coronary artery without angina pectoris, not otherwise specified 12/20/2023 Family History Relation Status Comments Father Mother Social History Tobacco Use Types Packs/Day Years Used Date Smoking Tobacco: Every Day Cigarettes 0.5 41.6 Started: 1983 Smokeless Tobacco: Never Tobacco Cessation:Ready [...] age to complete this topic Care Teams Knowledge Engineer Relationship Specialty Start Date End Date Regan Hogue MD [address] [place] [address] PCP - General Internal Medicine 12/20/23
[2025-05-05 11:24] LABS: Prostate Specific Antigen < 0.10 ng/mL (<0.05-4.0)
== END 2025-05-05 07:58 | disposition home or self-care (01) ==
LOC: HO.10HDL 07:57
PROVIDERS: Visit Provider Urology
DX: Z12.5 Encounter for screening for malignant neoplasm of prostate (principal); N40.1 Benign prostatic hyperplasia with lower urinary tract symptoms; R35.0 Frequency of micturition; E29.1 Testicular hypofunction
CPT/HCPCS: 36415; 84153; 84403

== ENCOUNTER → 2025-05-21 13:10 | Outpatient (REF) | payer MEDICARE, SELFPAY ==
--- NOTE | 2025-05-21 13:13 | CA_ITS ---
Transthoracic Echocardiogram Patient (Last, First, Middle): Navid Carvalho E Gender: Male Date of : 1965 Age: 60 Procedure Date: 05/21/2025 Procedure Type: Transthoracic Echocardiogram Location: OP Height: 172.72 cm Weight: 108.86 kg BSA: 2.21 m2 Heart Rate: bpm BP: 137 / 82 mmHg Online Services Manager: VIRAJ Referring MD: Klaudia Casillas HAIR PREPARER-[employer] Coordinator: Marciano Zamora MD Symptoms: I42.1 - Obstructive hypertrophic cardiomyopathy Study Quality: Adequate w contrast ECG Rhythm: Sinus Conclusions: - 1. 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 There is increased gradient at rest at peak gradient of 62 mm Hg with Valsalva going up to 120 mm Hg consistent with dynamic LVOT obstruction. Consider cardiac MRI 2. Mild left atrial enlargement 3. Mild mitral regurgitation 4. Upper limits of normal ascending aortic size at 3.7 cm 5. No gross pericardial effusion Findings Procedure Information Contrast agent, definity, is being given per protocol without apparent complications. Left Ventricle Normal left ventricular cavity size. There is moderately increased left ventricular wall thickness. The left ventricular systolic function is hyperdynamic. The visually estimated ejection fraction is >70%. There is dynamic left ventricular outflow tract obstruction. Spectral Doppler is indicative of an impaired relaxation filling pattern. Elevated filling pressures. There is severe septal asymmetric hypertrophy. there appears to be also hypercontractility of apex suggestive of apical hypertrophic cardiomyopathy with increased gradient across LVOT, peak gradient of 62 mm Hg and with Valsalva seems to increase to 120 mm Hg. Consider MRI and cardiac catheterization have symptomatic Atria The left atrium is mildly dilated. There is no evidence of interatrial shunt. The right atrium is normal in size. Aortic Valve The aortic valve was not well visualized. There is no aortic valve stenosis. There is no aortic valve regurgitation. Mitral Valve There is mild anterior and posterior mitral leaflet thickening. There is mild mitral valve regurgitation. There is no mitral valve stenosis. Pulmonic Valve The pulmonic valve was not well visualized. Tricuspid Valve Likely normal tricuspid valve structure and function. Tricuspid regurgitation envelope is inadequate for calculation of right ventricular systolic pressure. Normal right atrial pressure. Great Vessels The pulmonary artery was not well visualized. There is mild dilatation of the ascending aorta measuring 3.70 cm. Venous The inferior vena cava is normal in size. Pericardium/Pleural There is no evidence of pericardial effusion. Prior Study Comparison Changes noted compared to prior study dated: 05/27/2024. measured LVOT gradient at rest is higher along with possible dynamic component suggestive of obstructive hypertrophic cardiomyopathy Measurements 2D Linear Measurements IVSd: 1.82 0.6-0.9/0.6-1.0 cm LVIDd: 3.49 3.9-5.3/4.2-5.9 cm LVIDd Index: 1.58 2.4-3.2/2.2-3.1 cm/m2 LVIDs: 2.07 2.0-3.6 cm LVPWd: 1.52 0.7-1.1 cm LA Diam: 3.90 2.7-3.8/3.0-4.0 cm LAIDs Index: 1.76 1.5-2.3 cm/m2 LV Mass: 287.15 67-162/88-224 g LV Mass Index: 129.93 43-95/49-115 g/m2 LVOT Diam: 2.00 3.0+(-)1.3 cm Mitral Valve MV Pk E: 0.64 MV PK A: 0.85 MV Decel Time: 270.00 E/A: 0.70 E'Lateral: 5.33 E'Medial: 2.39 E/E' Med: 26.70 E/E' Lat: 12.00 PHT: 79.00 MVA PHT: 2.78 Decel [place]: 2.36 Aortic Valve AoV Pk Deshawn: 4.53 AoV Mn Deshawn: 3.15 AoV VTI: 1.05 AoV Pk Grad: 82.00 Aov Mn Grad: 47.00 CHIKIS Cont.VTI: 2.63 LVOT LVOT Pk Deshawn: 3.71 LVOT Mn Deshawn: 2.71 LVOT VTI: 0.88 LVOT Pk Grad: 55.00 LVOT Mn Grad: 34.00 LVOT Diam: 2.00 LVOT Area: 3.14 Diastolic Function MV Pk E: 0.64 MV Pk A: 0.85 E/A: 0.70 E'Medial: 2.39 E/E' Med: 26.70 E' Laterial: 5.33 E/E' Lat: 12.00 Right Ventricle TAPSE (mm): 14.30 TVS' Deshawn: 13.60 Great Vessels Aorta Sinus of Valsalva: 3.84 2.0-3.[address] [place]: 3.16 1.7-3.4 cm Ao Asc: 3.70 2.1-3.4 cm Ao Arch: 3.50 Updated in Other Vendor System with Status of Final Marciano Zamora MD electronically signed on 05/21/2025 4:36:09 PM with status of Final
--- OUTSIDE RECORDS SUMMARY | 2025-05-21 14:02 | XMS_ITS | Encounter Summary ---
Author Organization [facility] Address [address] [place] [address] Care Team Providers Care Mission Manager Name Role Phone Regan Hogue MD Primary Care Provider [phone] Encounter Details Date Type Department Care Team (Late st Contact Info) Description 08/12/2024 Lab Requisition [facility] - Main Lab [address] [place] [address] Freeman Cerna MD [address] Other fdc (current) 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 Social [...] FEE Routine 08/12/2024 9:00 AM EST Other fdc (current) 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 CBC WITH AUTO DIFFERENTIAL Routine 08/12/2024 9:00 AM EST Other termite technician (current) 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 CBC AND DIFFERENTIAL Routine 08/12/2024 9:00 AM EST Other termite technician (current) 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 documented in this encounter Results * (ABNORMAL) CBC auto differential (08/12/2024 9:00 AM EST) [facility] Signature WBC 6.5 4.8 - 10.8 K/[facility] LAB HEMETOLOGY METHOD 08/12/2024 11:44 AM EST [facility] RBC 4.30(L) 4.50 - 5.50 M/mcL LAB HEMETOLOGY METHOD 08/12/2024 11:44 AM [facility] Hemoglobin 11.6(L) 13.5 - 17.5 g/dL LAB HEMETOLOGY METHOD 08/12/2024 11:44 AM [facility] Hematocrit 37.1(L) 42.0 - 54.0 % LAB HEMETOLOGY METHOD 08/12/2024 11:44 AM [facility] MCV 86.7 79.0 - 98.0 FL LAB HEMETOLOGY METHOD 08/12/2024 11:44 AM [facility] MCH 27.1 27.0 - 32.0 pcg LAB HEMETOLOGY METHOD 08/12/2024 11:44 AM [facility] MCHC 31.3(L) 32.0 - 37.0 g/dL LAB HEMETOLOGY METHOD 08/12/2024 11:44 AM [facility] RDW 15.7(H) 11.0 - 15.0 % LAB HEMETOLOGY METHOD 08/12/2024 11:44 AM [facility] Platelets 121(L) 130 - 400 K/mcL LAB HEMETOLOGY METHOD 08/12/2024 11:44 AM [facility] MPV 12.6(H) 7.0 - 11.0 FL LAB HEMETOLOGY METHOD 08/12/2024 11:44 AM [facility] NRBC 0.0 <1.0 % LAB HEMETOLOGY METHOD 08/12/2024 11:44 AM [facility] NRBC Absolute 0.00 <0.10 K/mcL LAB HEMETOLOGY METHOD 08/12/2024 11:44 AM [facility] Neutrophils Relative 74.8 % LAB HEMETOLOGY METHOD 08/12/2024 11:44 AM [facility] Lymphocytes Relative 13.3 % LAB HEMETOLOGY METHOD 08/12/2024 11:44 AM [facility] Monocytes Relative 9.4 % LAB HEMETOLOGY METHOD 08/12/2024 11:44 AM [facility] Eosinophils Relative 1.1 % LAB HEMETOLOGY METHOD 08/12/2024 11:44 AM [facility] Basophils Relative 0.6 % LAB HEMETOLOGY METHOD 08/12/2024 11:44 AM [facility] Immature Granulocytes Relative 0.8 % LAB HEMETOLOGY METHOD 08/12/2024 11:44 AM [facility] Neutrophils Absolute 4.86 1.50 - 7.00 K/mcL LAB HEMETOLOGY METHOD 08/12/2024 11:44 AM [facility] Lymphocytes Absolute 0.86(L) 1.00 - 5.00 K/mcL LAB HEMETOLOGY METHOD 08/12/2024 11:44 AM [facility] Monocytes Absolute 0.61 0.20 - 1.00 K/mcL LAB HEMETOLOGY METHOD 08/12/2024 11:44 AM [facility] Eosinophils Absolute 0.07 0.00 - 0.50 K/mcL LAB HEMETOLOGY METHOD 08/12/2024 11:44 AM [facility] Basophils Absolute 0.04 0.00 - 0.20 K/mcL LAB HEMETOLOGY METHOD 08/12/2024 11:44 AM [facility] Immature Granulocytes Absolute 0.05(H) 0.00 - 0.03 K/mcL LAB HEMETOLOGY METHOD 08/12/2024 11:44 AM [facility] Blood Venous blood specimen / Unknown Venipuncture / Unknown 08/12/2024 9:00 AM EST 08/12/2024 10:29 AM EST us Freeman Cerna MD LAB BLOOD ORDERABLES Final Resul t Performing Organization Address [facility]/ZIP Co de Phone Number [facility] [address] [place] [address], * Travel phlebotomy fee (08/12/2024 9:00 AM EST) [facility] TRAVEL PHLEBOTOMY FEE Completed 08/12/2024 11:02 AM EST [facility] Blood Venous blood specimen / Unknown Venipuncture / Unknown 08/12/2024 9:00 AM EST 08/12/2024 10:29 AM EST Freeman Cerna MD LAB BLOOD ORDERABLES Final Resul t Performing Organization Address [facility] Co de Phone Number [facility] [address] [place] [address], [place] [phone] documented in this encounter Visit Diagnoses Diagnosis Other fdc (current) 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 documented in this encounter Care Teams Mission Manager Relationship Specialty Start Date End Date Regan Hogue MD [address] [place] [address] [address] [place] PCP - General Internal Medicine 11/12/24 documented as of this encounter
--- OUTSIDE RECORDS SUMMARY | 2025-05-21 14:02 | XMS_ITS | Clinical Summary ---
Author Organization [facility] Address [address] [address] Phone Care Team Providers Care Trail Construction Worker Name Role Phone Regan Hogue MD Primary Care Provider [phone] Allergies Active Allergy Reactions Criticality Noted Date Comments Diphenhydramine Other (see comments) 12/19/2023 Haloperidol Other (see comments) 12/19/2023 [place] Other (see comments) 12/19/2023 Thiothixene (Tiotixene) Other [...] Schizoaffective disorder, not otherwise specifie d 12/20/2023 [place] adverse reaction <Sequela> 12/20/2023 Acute nontraumatic kidney injury 12/20/2023 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
== END ==
LOC: HO.CARD 13:10
PROVIDERS: PCP Internal Medicine; Visit Provider Nurse Practitioner Family
DX: I42.1 Obstructive hypertrophic cardiomyopathy (principal)
CPT/HCPCS: 93306; Q9957

== ENCOUNTER → 2025-05-21 13:13 | Outpatient (BNV) | payer MEDICARE, SELFPAY | PROVIDERS: PCP Internal Medicine; Visit Provider Internal Medicine Cardiovascular Disease | DX: I51.89 Other ill-defined heart diseases (principal); I42.2 Other hypertrophic cardiomyopathy | CPT/HCPCS: 93306 ==

== ENCOUNTER 2025-05-27 12:37 | Outpatient (AMB) | payer MEDICARE, MEDICAID, SELFPAY ==
--- NOTE | 2025-05-27 12:43 | MHC.PC.OV ---
Vital Signs 05/27/25 12:45 Weight 229 lb BP 128/64 Position Sitting Pulse 54 Pulse Source Pulse Oximeter Pulse Oximetry (%) 98 Oxygen Delivery Method Room Air Intake Visit Reasons: annual exam - see comments Machine Set Up Operator Required: No Accompanied by: Self / Same As Patient Allergies lithium ([place]) Allergy (Severe, Verified 05/27/25 13:12) Toxicity thiothixene Allergy (Severe, Verified 05/27/25 13:12) Swelling amoxicillin Allergy (Mild, Verified 05/27/25 13:12) Nose Bleed benztropine Allergy (Unknown, Verified 05/27/25 13:12) benztropine mesylate- unknown gabapentin (From NEURONTIN) Allergy (Unknown, Verified 05/27/25 13:12) Unknown fluphenazine (From Prolixin) Allergy (Verified 05/27/25 13:12) Unknown barium sulfate (BARIUM SULFATE) Adverse Reaction (Intermediate, Verified 05/27/25 13:12) Nausea and Vomiting haloperidol Adverse Reaction (Intermediate, Verified 05/27/25 13:12) Muscle tension in legs diphenhydramine (From Benadryl) Adverse Reaction (Unknown, Verified 05/27/25 13:12) urinary retention Medication List - Last Reconciled 05/27/25 by Regan Hogue MD albuterol sulfate 90 mcg/actuation 2 puffs inhalation Q6H PRN 30 days alum-mag hydroxide-simeth 200-200-20 mg/5 mL 10 mL PO TID PRN aspirin 81 mg PO DAILY atorvastatin 20 mg PO BEDTIME blood sugar diagnostic (Groupjumpuch Verio test strips) Use as directed to check blood glucose twice daily. blood-glucose meter (EGTTouch Verio Flex Meter) Use as directed to check blood glucose twice daily for Type II diabetes mellitus. cholecalciferol (vitamin D3) 25 mcg PO DAILY clozapine 50 mg PO BEDTIME 30 days clozapine 25 mg PO BEDTIME clozapine 100 mg PO BEDTIME 30 days docusate sodium (Colace) 100 mg PO BID docusate sodium (Colace) 100 mg PO BID furosemide 40 mg PO DAILY hydrochlorothiazide 12.5 mg PO DAILY 90 days insulin glargine (Lantus Solostar U-100 Insulin) 15 units subcut QAM lancets (EGTTouch Delica Plus Lancet) Use as directed to check blood glucose twice daily. lurasidone (Latuda) 60 mg PO QPM metoprolol succinate ER 100 mg See Protocol PO DAILY nicotine (polacrilex) 4 mg buccal Q2H PRN 30 days nitroglycerin 0.4 mg sublingual Q5M PRN omeprazole 40 mg (2 x 20 mg) PO BID@0630,1630 pen needle, diabetic (BD Erica 2nd Gen Pen Needle) As directed to administer lantus insulin once daily polyethylene glycol 3350 17 grams PO DAILY 30 days sennosides-docusate sodium 8.6-50 mg (Senna Plus) 2 tabs PO DAILY 30 days trazodone 50 mg PO BEDTIME PRN Tobacco use date assessed: 05/27/25 Dental Screening Dental Screen Date: 05/27/25 Did you have a dental visit in the last 12 months?: No Did you have a dental problem in the last 6 months where you did not have access to dental care?: No Was dental information given to patient?: No HPI annual exam - see comments HPI Details Patient comes in today for his annual physical examination States that he feels okay He denies any headaches or dizziness Denies any chest pains, no SOB No nausea/vomiting, no abdominal pain No change in bowel habits noted He denies any acute urinary symptoms - states that he does have to get up in the middle of the night to go to the bathroom but usually no more than one to two times a night He has no follow up labs done recently He last had his screening colonoscopy with Dr. 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 use of insulin BPH (benign prostatic hyperplasia) Diabetes mellitus Essential hypertension HOCM (hypertrophic obstructive cardiomyopathy) Coronary artery disease Osteoarthritis GERD without esophagitis Vitamin D deficiency Congestive heart failure COVID-19 Thought disorder Constipation COPD (chronic obstructive pulmonary disease) Smoker Diabetes mellitus Obesity (BMI 30-39.9) Pure hypercholesterolemia Prolonged QT interval Aggression Hypertension CHF (congestive heart failure) Cardiac arrhythmia Myocardial infarction Surgical History (Updated 05/27/25 @ 13:19 by Regan Hogue MD) History of colonoscopy History of ankle surgery History of intestinal surgery History of transurethral resection of prostate Family History Father Medical history unknown Mother Medical history unknown Sister Alive and well Social History Household Members: Other Household Members Other:: Room mate Housing: House Housing Other:: [facility] Do you presently have visiting nurse or other home services: Yes Unable to assess alcohol history related to: Unknown Alcohol intake: current Alcohol intake frequency: holidays/special occasions only Alcohol type: beer Comment: 1:[address] Patient Tobacco Use Status: Former Tobacco user Tobacco use type: Cigarette Cigarette Packs Per Day: 0.5 Cigarettes Per Day: 10 Years Smoked: Many e-Cigarette/Vaping Use: Currently Using Second Hand Smoke Exposure: Yes Substance Use Type: Unknown Advance Directives Date on File: 01/14/24 service: No Current occupational status: disabled Sexual orientation: Straight/Heterosexual Cognitive needs: Yes Hearing needs: No Vision needs: Yes Questionnaire PHQ-9 Over the last 2 weeks, how often have you been bothered by any of the following problems? 1. Little interest or pleasure in doing things: nearly every day 2. Feeling down, depressed, or hopeless: several days 3. Trouble falling or staying asleep, or sleeping too much: nearly every day 4. Feeling tired or having little energy: not at all 5. Poor appetite or overeating: nearly every day 6. Feeling bad about yourself - or that you are a failure or have let yourself or your family down: nearly every day 7. Trouble concentrating on things, such as reading the newspaper or watching television: several days 8. Moving or speaking so slowly that other people could have noticed. Or the opposite - being so fidgety or restless that you have been moving around a lot more than usual: not at all 9. Thoughts that you would be better off or of hurting yourself in some way: not at all Total score: 14 Depression Screening Interpretation: Positive Depression Screening Follow-up: Existing condition and In treatment Depression Screening Done: Yes 33301 - PHQ-9 Billing: Yes Source: Developed by Drs. Ga Richard, Rosio Grigsby, Jose Johnson and colleagues, with an educational lulu from [email or web address]. Thrive Questionnaire Date Thrive assessed: 05/27/25 I am a: Patient What is your living situation today?: I have a steady place to live Within the past 12 months, did the food you bought not last and you didn't have the money to get more?: Often true Within the past 12 months, did you worry whether your food would run out before you got money to buy more?: Often true Do you have trouble paying for medicines?: No Do you have trouble getting transportation to medical appointments?: Yes Do you have trouble paying your heating and electricity bill?: Yes Do you have trouble taking care of your child, family member or friend?: No Do you have trouble with day-to-day activities such as bathing, preparing meals, shopping, managing finances, etc.?: No Are you currently unemployed and looking for a job?: No Are you interested in more education?: No Please select the resources that you would like help with: Care for elder or disabled Currently or been in a relationship where the following occur: No concerns reported THRIVE Score: 4 AUDIT C Alcohol Use Questionnaire (AUDIT-C) 1. How often do you have a drink containing alcohol?: Monthly or less 2. How many drinks containing alcohol do you have on a typical day when you are drinking?: 1 or 2 3. How often do you have six or more drinks on one occasion?: Less than monthly Total Score: 2 Score Reviewed/Action Taken: Yes LINN-7 AMB Questionnaire LINN-7 Date LINN - 7 assessed: 05/27/25 Trouble relaxin = Not at all Being so restless that it is hard to sit still: 0 = Not at all Becoming easily annoyed or irritable: 0 = Not at all Feeling afraid as if something awful might happen: 0 = Not at all Source: Developed by Drs. Ga Richard, Jose Aguilar and colleagues, with an educational lulu from [employer]. LINN-7 Assessment Billing LINN-7 Assessment Tool: LINN-7 Assessment 05250 Physical exam (Primary Care) Vital Signs: Last Vital Signs Pulse 54 05/27/25 12:45 BP 128/64 05/27/25 12:45 Pulse Ox 98 05/27/25 12:45 Oxygen Delivery Method Room Air 05/27/25 12:45 Tobacco/Smoking Status: Tobacco use Status Tobacco use date assessed 05/27/25 05/27/25 12:51 Patient Tobacco Use Status Former Tobacco user 05/27/25 12:51 Tobacco use type Cigarette 05/27/25 12:51 e-Cigarette/Vaping Use Currently Using 05/27/25 12:51 Depression Screening Interpretation: Positive Depression Screening Follow-up: Existing condition and In treatment Thrive Assessment: Date of Thrive Assessment Date Thrive assessed 05/27/25 05/27/25 12:51 Currently or been in a relationship where the following occur: No concerns reported Results AMB Hemoglobin A1c AMB Hemoglobin A1c 10.3 % Last Edit by MANINDER Pimentel on 05/27/25 13:39 Coding Additional Codes LINN-7 Assessment Billing - LINN-7 Assessment Tool: LINN-7 Assessment 41406 ([id number]) PHQ-9 - 57600 - PHQ-9 Billing: Yes ([id number]) Assessment & Plan Assessment & Plan Orders: Orders Comprehensive [place]. Panel Fast Today E78.00 - Pure hypercholesterolemia, unspecified, Z00.00 - Encounter for general adult medical examination without abnormal findings Lipid Panel Today E78.00 - Pure hypercholesterolemia, unspecified, Z00.00 - Encounter for general adult medical examination without abnormal findings Prostate Specific Antigen Today N40.0 - Benign prostatic hyperplasia without lower urinary tract symptoms, Z00.00 - Encounter for general adult medical examination without abnormal findings C Peptide Today E11.9 - Type 2 diabetes mellitus without complications Glutamic acid decarboxylase Ab Today E11.9 - Type 2 diabetes mellitus without complications AMB Hemoglobin A1c Today Z13.9 - Encounter for screening, unspecified Complete Blood Count Auto Diff Today D64.9 - Anemia, unspecified, Z00.00 - Encounter for general adult medical examination without abnormal findings TSH reflex Free T4 Today E78.00 - Pure hypercholesterolemia, unspecified, Z00.00 - Encounter for general adult medical examination without abnormal findings UA CC w/rflx Micro + Cult Today R30.0 - Dysuria, Z00.00 - Encounter for general adult medical examination without abnormal findings Vitamin D 25-OH Total Today E55.9 - Vitamin D deficiency, unspecified, Z00.00 - Encounter for general adult medical examination without abnormal findings Vitamin B12 and Folate Today E53.8 - Deficiency of other specified B group vitamins, Z00.00 - Encounter for general adult medical examination without abnormal findings B Type Natriuretic Peptide Today I50.9 - Heart failure, unspecified
[2025-05-27 12:45] VITALS: BP 128/64; PULSE 54; O2SAT 98
--- OUTSIDE RECORDS SUMMARY | 2025-05-27 13:29 | XMS_ITS | Clinical Summary ---
Author Organization [facility] Address [address] [address] Phone Care Team Providers Care Hospice Social Worker Name Role Phone Regan Hogue MD Primary Care Provider [phone]- [phone] Allergies Active Allergy Reactions Criticality Noted Date Comments Diphenhydramine Other (see comments) 12/19/2023 Haloperidol Other (see comments) 12/19/2023 [place] Other (see comments) 12/19/2023 Thiothixene (Tiotixene) Other [...] Schizoaffective disorder, not otherwise specifie d 12/20/2023 [place] adverse reaction <Sequela> 12/20/2023 Acute nontraumatic kidney injury 12/20/2023 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 12/20/2023 Atherosclerotic heart diseas e of [place] coronary artery without angina pectoris, not otherwise [...] age to complete this topic Care Teams Hospice Social Worker Relationship Specialty Start Date End Date Regan Hogue MD [address] [place] [address] PCP - General Internal Medicine 12/20/23
--- OUTSIDE RECORDS SUMMARY | 2025-05-27 13:29 | XMS_ITS | Encounter Summary ---
Author Organization [facility] Address [address] [place] [address] Care Team Providers Care Broadcast Supervisor Name Role Phone Regan Hogue MD Primary Care Provider Encounter Details Date Type Department Care Team (Late st Contact Info) Description 08/12/[address] [facility] - Main Lab [address] [place] [address] Freeman Cerna MD [address] Other long-term (current) 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 Social History Tobacco Use [...] FEE Routine 08/12/2024 9:00 AM EST Other long-term (current) 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 CBC WITH AUTO DIFFERENTIAL Routine 08/12/2024 9:00 AM EST Other buttermaker (current) 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 CBC AND DIFFERENTIAL Routine 08/12/2024 9:00 AM EST Other buttermaker (current) 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 documented in this encounter Results * (ABNORMAL) CBC auto differential (08/12/2024 9:00 AM EST) [facility] Signature WBC 6.5 4.8 - 10.8 K/[facility] LAB HEMETOLOGY METHOD 08/12/2024 11:44 AM EST [facility] RBC 4.30(L) 4.50 - 5.50 M/mcL LAB HEMETOLOGY METHOD 08/12/2024 11:44 AM [facility] Hemoglobin 11.6(L) 13.5 - 17.5 g/dL LAB HEMETOLOGY METHOD 08/12/2024 11:44 AM [facility] Hematocrit 37.1(L) 42.0 - 54.0 % LAB HEMETOLOGY METHOD 08/12/2024 11:44 AM [facility] MCV 86.7 79.0 - 98.0 FL LAB HEMETOLOGY METHOD 08/12/2024 11:44 AM [facility] MCH 27.1 27.0 - 32.0 pcg LAB HEMETOLOGY METHOD 08/12/2024 11:44 AM [facility] MCHC 31.3(L) 32.0 - 37.0 g/dL LAB HEMETOLOGY METHOD 08/12/2024 11:44 AM [facility] RDW 15.7(H) 11.0 - 15.0 % LAB HEMETOLOGY METHOD 08/12/2024 11:44 AM [facility] Platelets 121(L) 130 - 400 K/mcL LAB HEMETOLOGY METHOD 08/12/2024 11:44 AM [facility] MPV 12.6(H) 7.0 - 11.0 FL LAB HEMETOLOGY METHOD 08/12/2024 11:44 AM [facility] NRBC 0.0 <1.0 % LAB HEMETOLOGY METHOD 08/12/2024 11:44 AM [facility] NRBC Absolute 0.00 <0.10 K/mcL LAB HEMETOLOGY METHOD 08/12/2024 11:44 AM [facility] Neutrophils Relative 74.8 % LAB HEMETOLOGY METHOD 08/12/2024 11:44 AM [facility] Lymphocytes Relative 13.3 % LAB HEMETOLOGY METHOD 08/12/2024 11:44 AM [facility] Monocytes Relative 9.4 % LAB HEMETOLOGY METHOD 08/12/2024 11:44 AM [facility] Eosinophils Relative 1.1 % LAB HEMETOLOGY METHOD 08/12/2024 11:44 AM [facility] Basophils Relative 0.6 % LAB HEMETOLOGY METHOD 08/12/2024 11:44 AM [facility] Immature Granulocytes Relative 0.8 % LAB HEMETOLOGY METHOD 08/12/2024 11:44 AM [facility] Neutrophils Absolute 4.86 1.50 - 7.00 K/mcL LAB HEMETOLOGY METHOD 08/12/2024 11:44 AM [facility] Lymphocytes Absolute 0.86(L) 1.00 - 5.00 K/mcL LAB HEMETOLOGY METHOD 08/12/2024 11:44 AM [facility] Monocytes Absolute 0.61 0.20 - 1.00 K/mcL LAB HEMETOLOGY METHOD 08/12/2024 11:44 AM [facility] Eosinophils Absolute 0.07 0.00 - 0.50 K/mcL LAB HEMETOLOGY METHOD 08/12/2024 11:44 AM [facility] Basophils Absolute 0.04 0.00 - 0.20 K/mcL LAB HEMETOLOGY METHOD 08/12/2024 11:44 AM [facility] Immature Granulocytes Absolute 0.05(H) 0.00 - 0.03 K/mcL LAB HEMETOLOGY METHOD 08/12/2024 11:44 AM [facility] Blood Venous blood specimen / Unknown Venipuncture / Unknown 08/12/2024 9:00 AM EST 08/12/2024 10:29 AM EST us Freeman Cerna MD LAB BLOOD ORDERABLES Final Resul t Performing Organization Address [facility]/ZIP Co de Phone Number [facility] [address] [place] [address], * Travel phlebotomy fee (08/12/2024 9:00 AM EST) [facility] TRAVEL PHLEBOTOMY FEE Completed 08/12/2024 11:02 AM EST [facility] Blood Venous blood specimen / Unknown Venipuncture / Unknown 08/12/2024 9:00 AM EST 08/12/2024 10:29 AM EST Freeman Ceran MD LAB BLOOD ORDERABLES Final Resul t Performing Organization Address [facility] Co de Phone Number [facility] [address] [place] [address], [place] [phone] documented in this encounter Visit Diagnoses Diagnosis Other long-term (current) 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 documented in this encounter Care Teams Broadcast Supervisor Relationship Specialty Start Date End Date Regan Hogue MD [address] [place] [address] [address] [place] PCP - General Internal Medicine 11/12/24 documented as of this encounter
== END 2025-05-27 13:32 | disposition home or self-care (01) ==
LOC: HO.HMCH 12:39
PROVIDERS: PCP Internal Medicine; Visit Provider Internal Medicine
DX: Z13.9 Encounter for screening, unspecified (principal)

== ENCOUNTER → 2025-05-27 12:37 | Outpatient (BNVA) | payer MEDICARE, MEDICAID, SELFPAY | PROVIDERS: PCP Internal Medicine; Visit Provider Internal Medicine | DX: Z00.00 Encounter for general adult medical examination without abnormal findings (principal); E78.00 Pure hypercholesterolemia, unspecified; I25.118 Atherosclerotic heart disease of native coronary artery with other forms of angina pectoris; I42.1 Obstructive hypertrophic cardiomyopathy; R94.31 Abnormal electrocardiogram [ECG] [EKG]; E11.9 Type 2 diabetes mellitus without complications; Z79.4 Long term (current) use of insulin; I10 Essential (primary) hypertension; E55.9 Vitamin D deficiency, unspecified; K59.00 Constipation, unspecified; K21.9 Gastro-esophageal reflux disease without esophagitis; M15.9 Polyosteoarthritis, unspecified; G47.33 Obstructive sleep apnea (adult) (pediatric); N40.1 Benign prostatic hyperplasia with lower urinary tract symptoms; R35.0 Frequency of micturition; F25.0 Schizoaffective disorder, bipolar type; E66.9 Obesity, unspecified; F17.200 Nicotine dependence, unspecified, uncomplicated; Z71.3 Dietary counseling and surveillance; Z71.6 Tobacco abuse counseling | CPT/HCPCS: 83036; 96127; 99396 ==

== ENCOUNTER 2025-05-28 07:26 | Outpatient (REF) | payer MEDICARE, MEDICAID, SELFPAY ==
--- OUTSIDE RECORDS SUMMARY | 2025-05-28 07:30 | XMS_ITS | Encounter Summary ---
Author Organization [facility] Address [address] [place] [address] Care Team Providers Care Seal Mixing Operator Name Role Phone Regan Hogue MD Primary Care Provider Encounter Details Date Type Department Care Team (Late st Contact Info) Description 08/12/2024 Lab Requisition [facility] - Main Lab [address] [place] [address] Freeman Cerna MD [address] Other senior care (current) 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 [...] FEE Routine 08/12/2024 9:00 AM EST Other senior care (current) 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 CBC WITH AUTO DIFFERENTIAL Routine 08/12/2024 9:00 AM EST Other termite exterminator helper (current) 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 CBC AND DIFFERENTIAL Routine 08/12/2024 9:00 AM EST Other termite exterminator helper (current) 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 documented in this encounter Results * (ABNORMAL) CBC auto differential (08/12/2024 9:00 AM EST) [facility] Signature WBC 6.5 4.8 - 10.8 K/[facility] LAB HEMETOLOGY METHOD 08/12/2024 11:44 AM EST [facility] RBC 4.30(L) 4.50 - 5.50 M/mcL LAB HEMETOLOGY METHOD 08/12/2024 11:44 AM [facility] Hemoglobin 11.6(L) 13.5 - 17.5 g/dL LAB HEMETOLOGY METHOD 08/12/2024 11:44 AM [facility] LAB Hematocrit 37.1(L) 42.0 - 54.0 % LAB HEMETOLOGY METHOD 08/12/2024 11:44 AM [facility] LAB MCV 86.7 79.0 - 98.0 FL LAB HEMETOLOGY METHOD 08/12/2024 11:44 AM [facility] LAB MCH 27.1 27.0 - 32.0 pcg LAB HEMETOLOGY METHOD 08/12/2024 11:44 AM [facility] LAB MCHC 31.3(L) 32.0 - 37.0 g/dL LAB HEMETOLOGY METHOD 08/12/2024 11:44 AM [facility] LAB RDW 15.7(H) 11.0 - 15.0 % LAB HEMETOLOGY METHOD 08/12/2024 11:44 AM [facility] LAB Platelets 121(L) 130 - 400 K/mcL LAB HEMETOLOGY METHOD 08/12/2024 11:44 AM [facility] LAB MPV 12.6(H) 7.0 - 11.0 FL LAB HEMETOLOGY METHOD 08/12/2024 11:44 AM [facility] LAB NRBC 0.0 <1.0 % LAB HEMETOLOGY METHOD 08/12/2024 11:44 AM [facility] LAB NRBC Absolute 0.00 <0.10 K/mcL LAB HEMETOLOGY METHOD 08/12/2024 11:44 AM [facility] LAB Neutrophils Relative 74.8 % LAB HEMETOLOGY METHOD 08/12/2024 11:44 AM [facility] LAB Lymphocytes Relative 13.3 % LAB HEMETOLOGY METHOD 08/12/2024 11:44 AM [facility] Monocytes Relative 9.4 % LAB HEMETOLOGY METHOD 08/12/2024 11:44 AM [facility] Eosinophils Relative 1.1 % LAB HEMETOLOGY METHOD 08/12/2024 11:44 AM [facility] Basophils Relative 0.6 % LAB HEMETOLOGY METHOD 08/12/2024 11:44 AM [facility] Immature Granulocytes Relative 0.8 % LAB HEMETOLOGY METHOD 08/12/2024 11:44 AM [facility] Neutrophils Absolute 4.86 1.50 - 7.00 K/mcL LAB HEMETOLOGY METHOD 08/12/2024 11:44 AM [facility] Lymphocytes Absolute 0.86(L) 1.00 - 5.00 K/mcL LAB HEMETOLOGY METHOD 08/12/2024 11:44 AM [facility] Monocytes Absolute 0.61 0.20 - 1.00 K/mcL LAB HEMETOLOGY METHOD 08/12/2024 11:44 AM [facility] Eosinophils Absolute 0.07 0.00 - 0.50 K/mcL LAB HEMETOLOGY METHOD 08/12/2024 11:44 AM [facility] Basophils Absolute 0.04 0.00 - 0.20 K/mcL LAB HEMETOLOGY METHOD 08/12/2024 11:44 AM [facility] Immature Granulocytes Absolute 0.05(H) 0.00 - 0.03 K/mcL LAB HEMETOLOGY METHOD 08/12/2024 11:44 AM [facility] Blood Venous blood specimen / Unknown Venipuncture / Unknown 08/12/2024 9:00 AM EST 08/12/2024 10:29 AM EST us Freeman Cerna MD LAB BLOOD ORDERABLES Final Resul t Performing Organization Address [facility]/ZIP Co de Phone Number [facility] [address] [place] [address], * Travel phlebotomy fee (08/12/2024 9:00 AM EST) [facility] TRAVEL PHLEBOTOMY FEE Completed 08/12/2024 11:02 AM EST [facility] Blood Venous blood specimen / Unknown Venipuncture / Unknown 08/12/2024 9:00 AM EST 08/12/2024 10:29 AM EST Freeman Cerna MD LAB BLOOD ORDERABLES Final Resul t Performing Organization Address [facility] Co de Phone Number [facility] [address] [place] [address], [place] [phone] documented in this encounter Visit Diagnoses Diagnosis Other senior care (current) 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 documented in this encounter Care Teams Seal Mixing Operator Relationship Specialty Start Date End Date Regan Hogue MD [address] [place] [address] Dr [address] [place] PCP - General Internal Medicine 11/12/24 documented as of this encounter
--- OUTSIDE RECORDS SUMMARY | 2025-05-28 07:30 | XMS_ITS | Clinical Summary ---
Author Organization [facility] Address [address] [address] Phone Care Team Providers Care Systems Programmer Analyst Name Role Phone Regan Hogue MD Primary Care Provider +1- [phone] Allergies Active Allergy Reactions Criticality Noted Date Comments Diphenhydramine Other (see comments) 12/19/2023 Haloperidol Other (see comments) 12/19/2023 [place] Other (see comments) 12/19/2023 Thiothixene (Tiotixene) Other [...] Schizoaffective disorder, not otherwise specifie d 12/20/2023 [place] adverse reaction <Sequela> 12/20/2023 Acute nontraumatic kidney injury 12/20/2023 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
[2025-05-28 07:50] LABS: MANUAL DIFF FLAG NO
[2025-05-28 08:48] LABS: Appearance Urine Clear; Glucose Urine UA >=1000 mg/dL (Negative); PH 6.5 (5.0-9.0); Specific Gravity - Urine 1.025 (1.005-1.025); UMIC TRIGGER UACC YES
[2025-05-28 08:48] LABS: Hematocrit 42.0 % (42.0-52.0); Hemoglobin 12.9 g/dl (14.0-18.0); Imm Gran Abs Auto 0.04 X10*3/uL (0.00-0.03); Imm Gran Pct Auto 0.6 % (0.0-0.4); Lymphocytes Absolute Auto 1.1 X10*3/uL (1.2-4.9); Mean Corpuscular HGB Conc 30.7 g/dl (31.0-36.0); Mean Corpuscular Hemoglobin 24.4 pg (27.0-33.0); Mean Corpuscular Volume 79.5 fL (80.0-98.0); NRBC Abs Auto 0.020 X10*3/uL (0.0-0.012); NRBC Pct Auto 0.3 /100WBC (0.0-0.2); Platelet Count 146 X10*3/uL (160-400); Red Blood Count 5.28 X10*6/uL (4.60-5.80); White Blood Count 7.1 X10*3/uL (4.8-10.8)
[2025-05-28 09:05] LABS: Hemoglobin A1C 309.9724 umol/L; Total Hemoglobin (HGBA1C) 3368.0855 umol/L
[2025-05-28 09:12] LABS: B Type Natriuretic Peptide 457 pg/mL (<100)
[2025-05-28 09:16] LABS: Alanine Aminotransferase 22 U/L (0-40); Albumin Level 4.2 g/dL (3.5-5.0); Alkaline Phosphatase 108 U/L (39-117); Anion Gap 17 (12-20); Aspartate Amino Transferase 24 U/L (5-37); Blood Urea Nitrogen 22 mg/dL (9-16); Calcium 9.2 mg/dL (8.4-10.2); Carbon Dioxide 25 mmol/L (22-29); Chloride 106 mmol/L (96-108); Cholesterol 208 mg/dL (<200); Estimated Glomerular Filt Rate 52; HDL Cholesterol 31 mg/dL (>40); Potassium 4.0 mmol/L (3.3-5.1); Sodium 144 mmol/L (135-145); Total Protein 7.2 g/dL (6.5-8.0); Triglycerides 330 mg/dL (<150)
[2025-05-28 09:25] LABS: Microalbum/Creatinine Ratio Ur 93.3 ug/mg cr (<30)
[2025-05-28 09:43] LABS: Folate 9.7 ng/mL (> or = 4.0); Prostate Specific Antigen < 0.10 ng/mL (<0.05-4.0); Vitamin B12 488 pg/mL (200-900)
== END 2025-05-28 07:27 | disposition home or self-care (01) ==
LOC: HO.LAB 07:26
PROVIDERS: PCP Internal Medicine; Visit Provider Internal Medicine
DX: Z00.00 Encounter for general adult medical examination without abnormal findings (principal); N40.1 Benign prostatic hyperplasia with lower urinary tract symptoms; R35.0 Frequency of micturition; Z12.5 Encounter for screening for malignant neoplasm of prostate; Z13.89 Encounter for screening for other disorder; E78.00 Pure hypercholesterolemia, unspecified; E11.9 Type 2 diabetes mellitus without complications; E53.8 Deficiency of other specified B group vitamins; D64.9 Anemia, unspecified; E55.9 Vitamin D deficiency, unspecified; I50.9 Heart failure, unspecified
CPT/HCPCS: 36415; 51798; 80053; 80061; 81001; 81003; 82043; 82306; 82570; 82607; 82746; 83036; 83880; 84153; 84443; 84681; 85025; 86341; 99212

== ENCOUNTER 2025-05-28 12:59 | Outpatient (AMB) | payer MEDICARE, SELFPAY ==
--- NOTE | 2025-05-28 13:02 | A.OFFVIS_ITS ---
Intake Visit Reasons: meds/ labs Intake Note: Patient is present for follow up Urology Medication:none Blood Thinner : asprin PVR 22 mls Nursing Resident Required: No Accompanied by: Health Care Proxy Allergies lithium ([place]) Allergy (Severe, Verified 05/28/25 13:03) Toxicity thiothixene Allergy (Severe, Verified 05/28/25 13:03) Swelling amoxicillin Allergy (Mild, Verified 05/28/25 13:03) Nose Bleed benztropine Allergy (Unknown, Verified 05/28/25 13:03) benztropine mesylate- unknown gabapentin (From NEURONTIN) Allergy (Unknown, Verified 05/28/25 13:03) Unknown fluphenazine (From Prolixin) Allergy (Verified 05/28/25 13:03) Unknown barium sulfate (BARIUM SULFATE) Adverse Reaction (Intermediate, Verified 05/28/25 13:03) Nausea and Vomiting haloperidol Adverse Reaction (Intermediate, Verified 05/28/25 13:03) Muscle tension in legs diphenhydramine (From Benadryl) Adverse Reaction (Unknown, Verified 05/28/25 13:03) urinary retention HPI Comments Details: Navid is a pleasant male. They are a patient of Dr Hogue. They are seen in the office today for the following urologic conditions. - hypogonadism - lower urinary tract symptoms Six-month review Nonresponder to topical testosterone Recommend testosterone pellets given other issues Not suitable candidate for regular injectable testosterone. Has developmental delay and lives in a shared home. Difficulty with potential administration. The patient has both low T and diabetes Recent published data from large scale intervention trials indicates the benefit from all diabetic males having testosterone greater than 400 - T4DM 07/31 T 162, 05/01 140 Lower Urinary Tract Symptoms Prior office prostate procedures 2004 Prior use of tamsulosin Current medications alfuzosin Hypogonadism Restarted androgen replacement 2020 Discontinuity during COVID Baseline bipolar disease Labs - 08/29 495 Prior therapy testosterone packets [facility] Medical History (Updated 05/27/25 @ 13:20 by Regan Hogue MD) Vertigo Nocturnal hypoxemia Schizoaffective disorder, bipolar type Diabetic neuropathy Type II diabetes with fpc use of insulin BPH (benign prostatic hyperplasia) Diabetes mellitus Essential hypertension HOCM (hypertrophic obstructive cardiomyopathy) Coronary artery disease Osteoarthritis GERD without esophagitis Vitamin D deficiency Congestive heart failure COVID-19 Thought disorder Constipation COPD (chronic obstructive pulmonary disease) Smoker Diabetes mellitus Obesity (BMI 30-39.9) Pure hypercholesterolemia Prolonged QT interval Aggression Hypertension CHF (congestive heart failure) Cardiac arrhythmia Myocardial infarction Surgical History (Updated 05/27/25 @ 13:19 by Regan Hogue MD) History of colonoscopy History of ankle surgery History of intestinal surgery History of transurethral resection of prostate Family History Father Medical history unknown Mother Medical history unknown Sister Alive and well Social History Household Members: Other Household Members Other:: Room mate Housing: House Housing Other:: [facility] Do you presently have visiting nurse or other home services: Yes Unable to assess alcohol history related to: Unknown Alcohol intake: current Alcohol intake frequency: holidays/special occasions only Alcohol type: beer Comment: 1:[address] Patient Tobacco Use Status: Former Tobacco user Tobacco use type: Cigarette Cigarette Packs Per Day: 0.5 Cigarettes Per Day: 10 Years Smoked: Many e-Cigarette/Vaping Use: Currently Using Second Hand Smoke Exposure: Yes Substance Use Type: Unknown Advance Directives Date on File: 01/14/24 service: No Current occupational status: disabled Sexual orientation: Straight/Heterosexual Cognitive needs: Yes Hearing needs: No Vision needs: Yes Review of Systems Const Denies chills and Denies fever(s) Card Reports no additional complaints and Denies syncope Resp Denies cough GI Denies abdominal pain and Denies heartburn Reports as per HPI and Denies change in libido Neuro Denies syncope Psych Denies change in libido Endo Denies change in libido Physical Exam Const General: cooperative, healthy appearing, comfortable and no acute distress Orientation/consciousness: patient oriented x3 HEENT Face and sinus: Yes normal facial exam Mouth: moist mucous membranes Neck Neck: Yes normal visual inspection, Yes full ROM and Yes trachea midline Chest Chest palpation & inspection: normal inspection of the chest Resp Effort & Inspection: normal respiratory effort, able to speak in complete sentences and no respiratory distress GI Inspection: Yes normal to inspection Back/Spine/Pelvis Cervical Spine: normal cervical lordosis Thoracic/Lumbar Spine: thoracic and lumbar spine normal to inspection Skin General skin exam: no rashes or lesions noted Neuro General: patient oriented x3, gait normal, tone normal and moves all extremities Extrem General: Yes normal to inspection and Yes capillary refill normal Office Procedures Post Void Residual Post Residual Void Post Void Residual (PVR): 22 19751-Iwtm Void Residual by ultrasound Results AMB Urinalysis, Automated UA Leukoctes 0 Audra/uL Last Edit by MANUEL Campuzano on 05/28/25 13:18 UA Nitrite Negative Last Edit by MANUEL Campuzano on 05/28/25 13:18 UA Urobilinogen 0.2 mg/dL Last Edit by MANUEL Campuzano on 05/28/25 13:1 8 UA Protein 0 mg/dL Last Edit by Yen Holley [facility] on 05/28/25 13:18 UA pH 6.0 Last Edit by Yen Holley [facility] on 05/28/25 13:18 UA Blood 0 Juan/uL Last Edit by MANUEL Campuzano on 05/28/25 13:18 UA Specific Lam[place] 1.005 Last Edit by MANUEL Campuzano on 05/28/25 13: 18 UA Ketone Negative Last Edit by MANUEL Campuzano on 05/28/25 13:18 UA Bilirubin 0 mg/dL Last Edit by MANUEL Campuzano on 05/28/25 13:18 UA Glucose 1000 mg/dL Last Edit [facility] on 05/28/25 13:18 Results Reviewed Results Reviewed: Laboratory Last Values Urine pH (Auto) 6.0 05/28/25 13:17 Specific Lamar (Auto) 1.005 05/28/25 13:17 Urine Protein (Auto) 0 mg/dL 05/28/25 13:17 Glucose (UA)(Auto) 1000 mg/dL 05/28/25 13:17 Urine Ketones (Auto) Negative 05/28/25 13:17 Urine Blood (Auto) 0 Juan/uL 05/28/25 13:17 Urine Nitrite (Auto) Negative 05/28/25 13:17 Urine Bilirubin (Auto) 0 mg/dL 05/28/25 13:17 Urine Urobilinogen (Auto) 0.2 mg/dL 05/28/25 13:17 Leukocyte Esterase (Auto) 0 Audra/uL 05/28/25 13:17 Assessment & Plan Assessment & Plan (1) BPH (benign prostatic hyperplasia): Code(s): N40.0 - Benign prostatic hyperplasia without lower urinary tract symptoms Category: Medical Qualifiers: Lower urinary tract symptom presence: symptoms present Lower urinary tract symptom detail: urinary frequency Qualified Code(s): N40.1 - Benign prostatic hyperplasia with lower urinary tract symptoms; R35.0 - Frequency of micturition (2) Hypogonadism in male: Comment: Topical testosterone Code(s): E29.1 - Testicular hypofunction Category: Medical Plan Recommend trial of testosterone pellets Orders: Orders AMB Urinalysis Automated Today Z13.9 - Encounter for screening, unspecified AMB Post Void Residual by ultrasound Today N40.1 - Benign prostatic hyperplasia with lower urinary tract symptoms, R35.0 - Frequency of micturition Patient Instructions: This note is constructed using voice recognition software. While every effort has been made to ensure accuracy precision optics technician errors may have been included. Imaging studies, laboratory and physical exam results were discussed and reviewed in detail. No major barriers to patient understanding were identified. An opportunity to ask questions regarding the treatment plan was provided. All questions were answered. The patient expressed understanding and agreement with the above treatment plan. The patient is aware they should contact our office by phone for worsening of their current condition or the appearance of new urologic symptoms. Compliance is encouraged with any medications and followup testing that is ordered. It is a privilege to participate in the urologic care of your patient. If you have any questions or concerns regarding treatment for the above conditions, or other urologic issues, please do not hesitate to contact me. The office telephone contact is [phone]. Sincerely, Dr Jasiel Cox MD, [facility] - Urology Compassionate Specialist Care for the Genitourinary System Coding Level of Care Code Est Pt Level 4 (38910) Complex EM visit Add On G2211 Diagnoses Benign prostatic hyperplasia with urinary frequency N40.1; R35.0 Lower urinary tract symptom presence: symptoms present Lower urinary tract symptom detail: urinary frequency Hypogonadism in male E29.1 CPT Codes Post Residual Void - PVR CPT Code: 87452-Jaxj Void Residual by ultrasound ([id number])
== END 2025-05-28 14:00 | disposition home or self-care (01) ==
LOC: HO.HUSH 13:00
PROVIDERS: PCP Internal Medicine; Visit Provider Urology
DX: N40.1 Benign prostatic hyperplasia with lower urinary tract symptoms (principal); R35.0 Frequency of micturition; E29.1 Testicular hypofunction; Z13.9 Encounter for screening, unspecified
CPT/HCPCS: 99214; G2211

== ENCOUNTER 2025-06-12 08:41 | Outpatient (AMB) | payer MEDICARE, SELFPAY ==
[2025-06-12 08:47] VITALS: BP 124/74; PULSE 95; BMI 35.1
--- NOTE | 2025-06-12 08:47 | MHC.OFFVIS ---
Vital Signs 06/12/25 08:47 Height 5 ft 8 in Weight 230 lb 9.656 oz BMI 35.1 BP 124/74 Blood Pressure Location Lt brachial Position Sitting Pulse 95 Pulse Source Pulse Oximeter Intake Visit Reasons: Follow up Income Tax Manager: Income Tax Manager Present Accompanied by: staff chd Allergies lithium ([place]) Allergy (Severe, Verified 06/12/25 08:51) Toxicity thiothixene Allergy (Severe, Verified 06/12/25 08:51) Swelling amoxicillin Allergy (Mild, Verified 06/12/25 08:51) Nose Bleed benztropine Allergy (Unknown, Verified 06/12/25 08:51) benztropine mesylate- unknown gabapentin (From NEURONTIN) Allergy (Unknown, Verified 06/12/25 08:51) Unknown fluphenazine (From Prolixin) Allergy (Verified 06/12/25 08:51) Unknown barium sulfate (BARIUM SULFATE) Adverse Reaction (Intermediate, Verified 06/12/25 08:51) Nausea and Vomiting haloperidol Adverse Reaction (Intermediate, Verified 06/12/25 08:51) Muscle tension in legs diphenhydramine (From Benadryl) Adverse Reaction (Unknown, Verified 06/12/25 08:51) urinary retention Medication List - Last Reconciled 06/12/25 by EDIE Avalos albuterol sulfate 90 mcg/actuation 2 puffs inhalation Q6H PRN 30 days aspirin 81 mg PO DAILY atorvastatin (Lipitor) 20 mg PO DAILY blood sugar diagnostic ([facility] test strips) Use as directed to check blood glucose twice daily. blood-glucose meter ([facility] Flex Meter) Use as directed to check blood glucose twice daily for Type II diabetes mellitus. cholecalciferol (vitamin D3) 25 mcg PO DAILY clozapine 25 mg PO BEDTIME famotidine 10 mg PO DAILY furosemide (Lasix) 40 mg PO DAILY insulin glargine (Lantus Solostar U-100 Insulin) 15 units subcut QAM lancets ([facility] Delica Plus Lancet) Use as directed to check blood glucose twice daily. metoprolol tartrate 100 mg PO DAILY nicotine (polacrilex) 4 mg buccal Q2H PRN 30 days nitroglycerin 0.4 mg sublingual Q5M PRN omeprazole 40 mg (2 x 20 mg) PO BID@0630,1630 pen needle, diabetic (BD Erica 2nd Gen Pen Needle) As directed to administer lantus insulin once daily sennosides-docusate sodium 8.6-50 mg (Senna Plus) 2 tabs PO DAILY 30 days trazodone 50 mg PO BEDTIME PRN HPI HPI Follow up: Details: Navid is a 60-year-old male with past medical history of hypertension, hyperlipidemia, diabetes, smoking, schizoaffective disorder, hypertrophic obstructive cardiomyopathy, COPD who presents for follow-up. Today he presents with a pillowcase cutter. He is alert, with flat affect today. Still seems to have no insight on his cardiac condition, even after I discussed it with him. He reports feeling shortness of breath at rest and with activity. He has COPD and did have an admission for COPD exacerbation in March. He wears oxygen when doing things around his apartment and during the night. He is not wearing oxygen at this visit. He denies having chest discomfort at rest or with activity. He denies dizziness, presyncope. He has had falls without injury. He lives in a fci and takes his medications when they are given to him. He goes to a day program for 6 hours 4 days a week. Besides that he is sedentary. [facility] Medical History Vertigo Nocturnal hypoxemia Schizoaffective disorder, bipolar type Diabetic neuropathy Type II diabetes with senior living use of insulin BPH (benign prostatic hyperplasia) Diabetes mellitus Essential hypertension HOCM (hypertrophic obstructive cardiomyopathy) Coronary artery disease Osteoarthritis GERD without esophagitis Vitamin D deficiency Congestive heart failure COVID-19 Thought disorder Constipation COPD (chronic obstructive pulmonary disease) Smoker Diabetes mellitus Obesity (BMI 30-39.9) Pure hypercholesterolemia Prolonged QT interval Aggression Hypertension CHF (congestive heart failure) Cardiac arrhythmia Myocardial infarction Surgical History History of colonoscopy History of ankle surgery History of intestinal surgery History of transurethral resection of prostate Family History Father Medical history unknown Mother Medical history unknown Sister Alive and well Social History Household Members: Other Household Members Other:: Room mate Housing: House Housing Other:: [facility] Do you presently have visiting nurse or other home services: Yes Unable to assess alcohol history related to: Unknown Alcohol intake: current Alcohol intake frequency: holidays/special occasions only Alcohol type: beer Comment: 1:[address] Patient Tobacco Use Status: Former Tobacco user Tobacco use type: Cigarette Cigarette Packs Per Day: 0.5 Cigarettes Per Day: 10 Years Smoked: Many e-Cigarette/Vaping Use: Currently Using Second Hand Smoke Exposure: Yes Substance Use Type: Unknown Advance Directives Date on File: 01/14/24 service: No Current occupational status: disabled Sexual orientation: Straight/Heterosexual Cognitive needs: Yes Hearing needs: No Vision needs: Yes Review of Systems Const All systems reviewed & are unremarkable except as noted in HPI and below Denies daytime sleepiness, Denies difficulty sleeping, Reports fatigue and Denies weakness Card Denies chest pain, Denies rapid heart rate, Denies irregular heart rhythm, Denies claudication, Denies leg edema, Denies lightheadedness, Denies palpitations, Reports dyspnea, Reports dyspnea on exertion, Denies orthopnea and Denies paroxysmal nocturnal dyspnea Resp Denies cough, Reports dyspnea and Reports dyspnea on exertion GI Reports no additional complaints, Denies change in stool character and Denies dyspepsia Musc Denies abnormal gait, Denies muscle weakness and Denies numbness Neuro Denies abnormal gait, Denies numbness and Denies weakness Endo Reports fatigue and Denies palpitations Physical Exam Vital Signs: Last Vital Signs Pulse 95 06/12/25 08:47 BP 124/74 06/12/25 08:47 BMI result Body Mass Index 35.1 Const General: cooperative, healthy appearing, comfortable and no acute distress Orientation/consciousness: patient oriented x3 Neck Neck: Yes normal visual inspection Resp Effort & Inspection: normal respiratory effort Auscultation: clear to auscultation bilaterally, no rales, no rhonchi and no wheezes Cardio Jugular venous distension: no JVD Rate: regular rate Rhythm: regular rhythm Heart sounds: S2 normal heart sound present, no gallops, Murmur heart sound present and no rubs Neuro General: patient oriented x3 Extrem General: Yes normal to inspection and No no pedal edema Psych Appearance: grossly normal Mental Status: mental status grossly normal Speech and movement: Normal speech and movement present Assessment & Plan Assessment & Plan (1) HOCM (hypertrophic obstructive cardiomyopathy): Code(s): I42.1 - Obstructive hypertrophic cardiomyopathy Category: Medical Plan: History of hypertrophic cardiomyopathy. A cardiac MRI done in 2017 showed hypertrophic cardiomyopathy with at least moderate LV outflow track obstruction, systolic anterior motion of the mitral valve, degree of hypertrophy greatest at the apical segment, no abnormal enhancement, subjectively preserved EF. Echocardiogram done on 10/10/2023 showing EF greater than 70%, severe increase in LV wall thickness, dynamic LVOT gradient noted, resting LVOT peak gradient 40 mmHg, post Valsalva 123 mmHg, worse than prior study in 2020, normal RV cavity size and function, left atrium severely dilated, mild dilation of the sinus of Valsalva 4 cm and mild dilation of ascending aorta 3.9 cm. Echocardiogram 05/27/24 showed EF 65-70%, peak LV gradiant 38mmgh, no obvous LVOT gradient noted however technically difficult test A repeat cardiac MRI was done on 08/25/2024 showing technically difficult study, EF 65-75%, severe LVH, apical septum severely hypertrophied, inadequate to assess for LVOT obstruction. Echocardiogram 05/21/25 with EF greater than 70%, moderate diffuse hypertrophy with severe asymmetrical septal hypertrophy, resting LVOT peak gradient 62 mmHg, post Valsalva 120 mmHg, ascending aorta 3.7 cm. He does have shortness of breath at rest and with activity which is likely related to his COPD. He is following with pulmonology. He wears oxygen p.r.n. and during the night. He does not appear fluid overloaded on exam. Does only light physical activities. His blood pressure is well controlled. Continue current med management including Lasix and metoprolol. Diagnosis of HOCM was reviewed with him again. He seems to have very little insight to what this means. He redirect the conversation elsewhere. Instructed on no heavy lifting and carrying. Reviewed with pillowcase cutter to Call if worsening of his breathing, new chest pains or shortness presyncope, syncope. Will review most recent echo with his primary dry drug worker. Cardiology follow up 6 mo, sooner if needed - plan to go over recent echo and further determined plan of care. (2) Elevated troponin: Code(s): R79.89 - Other specified abnormal findings of blood chemistry Category: Medical Plan: [facility] admission January 2024 with altered mental status, tachycardia, tachypnea, JUHI, mildly elevated troponin. His EKG was nondiagnostic for ischemia as he does have repolarization abnormalities from LVH. Troponin can be mildly elevated in the setting of JUHI. He did have a cardiac catheterization in 2017 which showed normal coronary arteries. He did undergo pharmacological nuclear stress test as outpatient on 04/11/2024 showing a reversible distal inferior defect possibly from diaphragm attenuation artifact, less likely true ischemia, EF 42% with stress and 47% with rest. He has not had clear angina. He does have shortness of breath with activity which could be from his COPD. Continue with risk factor modification. He is on daily aspirin, atorvastatin with ideal LDL goal less than 100. He is on metoprolol with good blood pressure control. (3) Prolonged QT interval: Code(s): R94.31 - Abnormal electrocardiogram [ECG] [EKG] Category: Medical Plan: Has had variable QTC levels in the past, likely related to use of antipsychotic medications. Some EKGs showing QTC ranging 496ms - 523ms. Last EKG done 03/20/2025 shows sinus rhythm with LVH, QTC 487 milliseconds. Avoid medications that prolong his QT interval. (4) Hypertension: Code(s): I10 - Essential (primary) hypertension Category: Medical Qualifiers: Hypertension type: essential hypertension Qualified Code(s): I10 - Essential (primary) hypertension Plan: BP goal < 130/80. Well controlled at this time. No medication changes made. (5) Abnormal EKG: Code(s): R94.31 - Abnormal electrocardiogram [ECG] [EKG] Category: Medical Plan: EKG does have ST and T-wave abnormalities, chronic, related to LVH, HOCM. Nondiagnostic for ischemia Plan Time spent on chart review, documentation, interview and assessment Coding Level of Care Code Est Pt Level 4 (62680) Complex EM visit Add On G2211 Diagnoses HOCM (hypertrophic obstructive cardiomyopathy) I42.1 Elevated troponin R79.89 Prolonged QT interval R94.31 Essential hypertension I10 Hypertension type: essential hypertension Abnormal EKG R94.31 Time Spent (min) 30
--- OUTSIDE RECORDS SUMMARY | 2025-06-12 09:13 | XMS_ITS | Encounter Summary ---
Author Organization [facility] Address [address] [place] [address] Care Team Providers Care Welt Slasher Name Role Phone Regan Hogue MD Primary Care Provider Encounter Details Date Type Department Care Team (Late st Contact Info) Description 03/24/2025 Lab Requisition [facility] - Main Lab [address] [place] [address] Freeman Cerna MD [address] Other intermediate project manager (current) 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 Social History Tobacco [...] Diagnosis Comments CBC WITH AUTO DIFFERENTIAL Routine 03/24/2025 8:28 AM EDT Other intermediate project manager (current) 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 CBC AND DIFFERENTIAL Routine 03/24/2025 8:28 AM EDT Other intermediate project manager (current) 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 documented in this encounter Results * (ABNORMAL) CBC auto differential (03/24/2025 8:28 AM EDT) WBC 9.6 4.8 - 10.8 K/[facility] LAB HEMETOLOGY METHOD 03/24/2025 10:53 AM EDT [facility] RBC 4.30(L) 4.50 - 5.50 M/[facility] LAB HEMETOLOGY METHOD 03/24/2025 10:53 AM [facility] Hemoglobin 10.1(L) 13.5 - 17.5 g/dL LAB HEMETOLOGY METHOD 03/24/2025 10:53 AM [facility] Hematocrit 35.3(L) 42.0 - 54.0 % LAB HEMETOLOGY METHOD 03/24/2025 10:53 AM [facility] MCV 82.3 79.0 - 98.0 FL LAB HEMETOLOGY METHOD 03/24/2025 10:53 AM [facility] MCH 23.5(L) 27.0 - 32.0 pcg LAB HEMETOLOGY METHOD 03/24/2025 10:53 AM [facility] MCHC 28.6(L) 32.0 - 37.0 g/dL LAB HEMETOLOGY METHOD 03/24/2025 10:53 AM [facility] RDW 18.7(H) 11.0 - 15.0 % LAB HEMETOLOGY METHOD 03/24/2025 10:53 AM [facility] Platelets 139 130 - 400 K/mcL LAB HEMETOLOGY METHOD 03/24/2025 10:53 AM [facility] MPV LAB HEMETOLOGY METHOD 03/24/2025 10:53 AM [facility] Comment:Not Measured NRBC 0.0 <1.0 % LAB HEMETOLOGY METHOD 03/24/2025 10:53 AM [facility] NRBC Absolute 0.00 <0.10 K/mcL LAB HEMETOLOGY METHOD 03/24/2025 10:53 AM [facility] Neutrophils Relative 77.5 % LAB HEMETOLOGY METHOD 03/24/2025 10:53 AM [facility] Lymphocytes Relative 11.7 % LAB HEMETOLOGY METHOD 03/24/2025 10:53 AM [facility] Monocytes Relative 9.8 % LAB HEMETOLOGY METHOD 03/24/2025 10:53 AM EDT [facility] Eosinophils Relative 0.2 % LAB HEMETOLOGY METHOD 03/24/2025 10:53 AM EDT [facility] Basophils Relative 0.1 % LAB HEMETOLOGY METHOD 03/24/2025 10:53 AM EDT [facility] Immature Granulocytes Relative 0.7 % LAB HEMETOLOGY METHOD 03/24/2025 10:53 AM EDT [facility] Neutrophils Absolute 7.39(H) 1.50 - 7.00 K/mcL LAB HEMETOLOGY METHOD 03/24/2025 10:53 AM [facility] Lymphocytes Absolute 1.12 1.00 - 5.00 K/mcL LAB HEMETOLOGY METHOD 03/24/2025 10:53 AM EDT [facility] Monocytes Absolute 0.94 0.20 - 1.00 K/mcL LAB HEMETOLOGY METHOD 03/24/2025 10:53 AM T [facility] Eosinophils Absolute 0.02 0.00 - 0.50 K/mcL LAB [facility] Bas[facility] Absolute 0.01 0.00 - 0.20 K/mcL LAB HEMETOLOGY METHOD 03/24/2025 10:53 AM EDT [facility] Immature Granulocytes Absolute 0.07(H) 0.00 - 0.03 K/mcL LAB HEMETOLOGY METHOD 03/24/2025 10:53 AM [facility] Blood Venous blood specimen / Unknown Venipuncture / Unknown 03/24/2025 8:28 AM EDT 03/24/2025 10:22 AM EDT us Freeman Cerna MD LAB BLOOD ORDERABLES Final Resul t [facility] [address] [place] [address], documented in this encounter Visit Diagnoses Diagnosis Other intermediate project manager (current) 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 documented in this encounter Care Teams Welt Slasher Relationship Specialty Start Date End Date Regan Hogue MD [address] [place] [address] Dr [address] [place], [place] PCP - General Internal Medicine 11/12/24 documented as of this encounter
--- OUTSIDE RECORDS SUMMARY | 2025-06-12 09:13 | XMS_ITS | Encounter Summary ---
Author Organization [facility] Address [address] [place] [address] Care Team Providers Care Toe Trimmer Name Role Phone Regan Hogue MD Primary Care Provider Encounter Details Date Type Department Care Team (Late st Contact Info) Description 09/09/2024 Lab Requisition [facility] - Main Lab 299 [facility] [place] [address] Freeman Crena MD [address] Other terminal operations manager (current) drug [...] DIFFERENTIAL Routine 09/09/2024 6:39 AM EST Other terminal operations manager (current) drug therapy CBC AND DIFFERENTIAL Routine 09/09/2024 6:39 AM EST Other terminal operations manager (current) drug therapy documented in this encounter Results * (ABNORMAL) CBC auto differential (09/09/2024 6:39 AM EST) [facility] Signature WBC 7.0 4.8 - 10.8 K/[facility] LAB HEMETOLOGY METHOD 09/09/2024 10:01 AM EST [facility] ([facility]) [facility] LAB RBC 4.20(L) 4.50 - 5.50 M/[facility] LAB HEMETOLOGY METHOD 09/09/2024 10:01 AM [facility] LAB Hemoglobin 11.2(L) 13.5 - 17.5 g/dL LAB HEMETOLOGY METHOD 09/09/2024 10:01 AM [facility] LAB Hematocrit 37.2(L) 42.0 - 54.0 % LAB HEMETOLOGY METHOD 09/09/2024 10:01 AM [facility] LAB MCV 88.2 79.0 - 98.0 FL LAB HEMETOLOGY METHOD 09/09/2024 10:01 AM [facility] LAB MCH 26.5(L) 27.0 - 32.0 pcg LAB HEMETOLOGY METHOD 09/09/2024 10:01 AM [facility] LAB MCHC 30.1(L) 32.0 - 37.0 g/dL LAB HEMETOLOGY METHOD 09/09/2024 10:01 AM [facility] LAB RDW 15.7(H) 11.0 - 15.0 % LAB HEMETOLOGY METHOD 09/09/2024 10:01 AM [facility] LAB Platelets 147 130 - 400 K/mcL LAB HEMETOLOGY METHOD 09/09/2024 10:01 AM [facility] LAB MPV 12.8(H) 7.0 - 11.0 FL LAB HEMETOLOGY METHOD 09/09/2024 10:01 AM [facility] LAB NRBC 0.0 <1.0 % LAB HEMETOLOGY METHOD 09/09/2024 10:01 AM [facility] LAB NRBC Absolute 0.00 <0.10 K/mcL LAB HEMETOLOGY METHOD 09/09/2024 10:01 AM [facility] LAB Neutrophils Relative 72.6 % LAB HEMETOLOGY METHOD 09/09/2024 10:01 AM [facility] LAB Lymphocytes Relative 15.3 % LAB HEMETOLOGY METHOD 09/09/2024 10:01 AM [facility] LAB Monocytes Relative 8.9 % LAB HEMETOLOGY METHOD 09/09/2024 10:01 AM [facility] LAB Eosinophils Relative 2.0 % LAB HEMETOLOGY METHOD 09/09/2024 10:01 AM [facility] LAB Basophils Relative 0.6 % LAB HEMETOLOGY METHOD 09/09/2024 10:01 AM [facility] LAB Immature Granulocytes Relative 0.6 % LAB HEMETOLOGY METHOD 09/09/2024 10:01 AM [facility] LAB Neutrophils Absolute 5.08 1.50 - 7.00 K/mcL LAB HEMETOLOGY METHOD 09/09/2024 10:01 AM [facility] LAB Lymphocytes Absolute 1.07 1.00 - 5.00 K/mcL LAB HEMETOLOGY METHOD 09/09/2024 10:01 AM [facility] LAB Monocytes Absolute 0.62 0.20 - 1.00 K/mcL LAB HEMETOLOGY METHOD 09/09/2024 10:01 AM EST [facility] LAB Eosinophils Absolute 0.14 0.00 - 0.50 K/mcL LAB HEMETOLOGY METHOD 09/09/2024 10:01 AM [facility] LAB Basophils Absolute 0.04 0.00 - 0.20 K/mcL LAB HEMETOLOGY METHOD 09/09/2024 10:01 AM [facility] LAB Immature Granulocytes Absolute 0.04(H) 0.00 - 0.03 K/mcL LAB HEMETOLOGY METHOD 09/09/2024 10:01 AM [facility] LAB Blood Venous blood specimen / Unknown Venipuncture / Unknown 09/09/2024 6:39 AM EST 09/09/2024 9:46 AM EST us Freeman Cerna MD LAB BLOOD ORDERABLES Final Resul t [facility] LAB [address] [place], [place] [address] [phone] documented in this encounter Visit Diagnoses Diagnosis Other terminal operations manager (current) drug therapy documented in this encounter Care Teams Toe Trimmer Relationship Specialty Start Date End Date Regan Hogue MD [address] [place] [address] Dr [address] [place] PCP - General Internal Medicine 11/12/24 documented as of this encounter
--- OUTSIDE RECORDS SUMMARY | 2025-06-12 09:13 | XMS_ITS | Encounter Summary ---
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 Social History [...] Diagnosis Comments CBC WITH AUTO DIFFERENTIAL Routine 02/24/2025 6:34 AM EDT 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 CBC AND DIFFERENTIAL Routine 02/24/2025 6:34 AM EDT 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 documented in this encounter Results * (ABNORMAL) CBC auto differential (02/24/2025 6:34 AM EDT) WBC 8.6 4.8 - 10.8 K/[facility] LAB HEMETOLOGY METHOD 02/24/2025 8:23 AM EDT [facility] LAB RBC 4.70 4.50 - 5.50 M/[facility] LAB HEMETOLOGY METHOD 02/24/2025 8:23 AM [facility] LAB Hemoglobin 11.2(L) 13.5 - 17.5 g/dL LAB HEMETOLOGY METHOD 02/24/2025 8:23 AM [facility] LAB Hematocrit 38.4(L) 42.0 - 54.0 % LAB HEMETOLOGY METHOD 02/24/2025 8:23 AM [facility] LAB MCV 81.7 79.0 - 98.0 FL LAB HEMETOLOGY METHOD 02/24/2025 8:23 AM [facility] LAB MCH 23.8(L) 27.0 - 32.0 pcg LAB HEMETOLOGY METHOD 02/24/2025 8:23 AM [facility] LAB MCHC 29.2(L) 32.0 - 37.0 g/dL LAB HEMETOLOGY METHOD 02/24/2025 8:23 AM [facility] LAB RDW 17.6(H) 11.0 - 15.0 % LAB HEMETOLOGY METHOD 02/24/2025 8:23 AM [facility] LAB Platelets 207 130 - 400 K/mcL LAB HEMETOLOGY METHOD 02/24/2025 8:23 AM [facility] LAB MPV 12.0(H) 7.0 - 11.0 FL LAB HEMETOLOGY METHOD 02/24/2025 8:23 AM [facility] LAB NRBC 0.0 <1.0 % LAB HEMETOLOGY METHOD 02/24/2025 8:23 AM [facility] LAB NRBC Absolute 0.00 <0.10 K/mcL LAB HEMETOLOGY METHOD 02/24/2025 8:23 AM [facility] LAB Neutrophils Relative 67.7 % LAB HEMETOLOGY METHOD 02/24/2025 8:23 AM [facility] LAB Lymphocytes Relative 18.2 % LAB HEMETOLOGY METHOD 02/24/2025 8:23 AM EDT [facility] LAB Monocytes Relative 9.9 % LAB HEMETOLOGY METHOD 02/24/2025 8:23 AM EDT [facility] LAB Eosinophils Relative 3.0 % LAB HEMETOLOGY METHOD 02/24/2025 8:23 AM [facility] LAB Basophils Relative 0.7 % LAB HEMETOLOGY METHOD 02/24/2025 8:23 AM EDT [facility] LAB Immature Granulocytes Relative 0.5 % LAB HEMETOLOGY METHOD 02/24/2025 8:23 AM EDT [facility] LAB Neutrophils Absolute 5.81 1.50 - 7.00 K/mcL LAB HEMETOLOGY METHOD 02/24/2025 8:23 AM [facility] LAB Lymphocytes Absolute 1.56 1.00 - 5.00 K/mcL LAB HEMETOLOGY METHOD 02/24/2025 8[facility] Monocytes Absolute 0.85 0.20 - 1.00 K/mcL LAB HEMETOLOGY METHOD 02/24/2025 8:23 AM [facility] LAB Eosinophils Absolute 0.26 0.00 - 0.50 K/mcL LAB HEMETOLOGY METHOD 02/24/2025 8:23 AM [facility] LAB Basophils Absolute 0.06 0.00 - 0.20 K/mcL LAB HEMETOLOGY METHOD 02/24/2025 8:23 AM [facility] LAB Immature Granulocytes Absolute 0.04(H) 0.00 - 0.03 K/mcL LAB HEMETOLOGY METHOD 02/24/2025 8:23 AM [facility] LAB Blood Venous blood specimen / Unknown Venipuncture / Unknown 02/24/2025 6:34 AM EDT 02/24/2025 7:50 AM EDT us Freeman Cerna MD LAB BLOOD ORDERABLES Final Resul t [facility] H[facility] LAB [address] [place] [address], documented in this encounter Visit Diagnoses Diagnosis 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
--- OUTSIDE RECORDS SUMMARY | 2025-06-12 09:13 | XMS_ITS | Encounter Summary ---
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 CBC AND DIFFERENTIAL Routine 01/27/2025 6:17 AM EDT 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 documented in this encounter Results * (ABNORMAL) CBC auto differential (01/27/2025 6:17 AM EDT) WBC 8.7 4.8 - 10.8 K/[facility] LAB HEMETOLOGY METHOD 01/27/2025 8:36 AM EDT [facility] ([facility] LAB RBC 4.90 4.50 - 5.50 M/[facility] LAB HEMETOLOGY METHOD 01/27/2025 8:36 AM [facility] LAB Hemoglobin 11.9(L) 13.5 - 17.5 g/dL LAB HEMETOLOGY METHOD 01/27/2025 8:36 AM [facility] LAB Hematocrit 40.1(L) 42.0 - 54.0 % LAB HEMETOLOGY METHOD 01/27/2025 8:36 AM [facility] LAB MCV 82.7 79.0 - 98.0 FL LAB HEMETOLOGY METHOD 01/27/2025 8:36 AM [facility] LAB MCH 24.5(L) 27.0 - 32.0 pcg LAB HEMETOLOGY METHOD 01/27/2025 8:36 AM [facility] LAB MCHC 29.7(L) 32.0 - 37.0 g/dL LAB HEMETOLOGY METHOD 01/27/2025 8:36 AM [facility] LAB RDW 17.3(H) 11.0 - 15.0 % LAB HEMETOLOGY METHOD 01/27/2025 8:36 AM [facility] LAB Platelets 205 130 - 400 K/mcL LAB HEMETOLOGY METHOD 01/27/2025 8:36 AM [facility] LAB MPV 12.8(H) 7.0 - 11.0 FL LAB HEMETOLOGY METHOD 01/27/2025 8:36 AM [facility] LAB NRBC 0.0 <1.0 % LAB HEMETOLOGY METHOD 01/27/2025 8:36 AM [facility] LAB NRBC Absolute 0.00 <0.10 K/mcL LAB HEMETOLOGY METHOD 01/27/2025 8:36 AM [facility] LAB Neutrophils Relative 73.5 % LAB HEMETOLOGY METHOD 01/27/2025 8:36 AM [facility] LAB Lymphocytes Relative 14.6 % LAB HEMETOLOGY METHOD 01/27/2025 8:36 AM EDT [facility] LAB Monocytes Relative 9.3 % LAB HEMETOLOGY METHOD 01/27/2025 8:36 AM EDT [facility] LAB Eosinophils Relative 1.6 % LAB HEMETOLOGY METHOD 01/27/2025 8:36 AM EDT [facility] LAB Basophils Relative 0.7 % LAB HEMETOLOGY METHOD 01/27/2025 8:36 AM EDT [facility] LAB Immature Granulocytes Relative 0.3 % LAB HEMETOLOGY METHOD 01/27/2025 8:36 AM EDT [facility] LAB Neutrophils Absolute 6.41 1.50 - 7.00 K/mcL LAB HEMETOLOGY METHOD 01/27/2025 8:36 AM EDT [facility] LAB Lymphocytes Absolute 1.27 1.00 - 5.00 K/mcL LAB HEMETOLOGY METHOD 01/27/2025 8:36 AM EDT [facility] LAB Monocytes Absolute 0.81 0.20 - 1.00 K/mcL LAB HEMETOLOGY METHOD 01/27/2025 8:36 AM EDT [facility] LAB Eosinophils Absolute 0.14 0.00 - 0.50 K/mcL LAB [facility]EMETOLOGY [facility] Bas[facility] Absolute 0.06 0.00 - 0.20 K/mcL LAB HEMETOLOGY METHOD 01/27/2025 8:36 AM EDT [facility] LAB Immature Granulocytes Absolute 0.03 0.00 - 0.03 K/mcL LAB HEMETOLOGY METHOD 01/27/2025 8:36 AM EDT [facility] LAB Blood Venous blood specimen / Unknown Venipuncture / Unknown 01/27/2025 6:17 AM EDT 01/27/2025 8:23 AM EDT us Freeman Cerna MD LAB BLOOD ORDERABLES Final Resul t [facility] ([facility] H[facility] LAB [address] [place] [address], documented in this encounter Visit Diagnoses Diagnosis 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
--- OUTSIDE RECORDS SUMMARY | 2025-06-12 09:13 | XMS_ITS | Clinical Summary ---
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 from Last 3 Months Social History Tobacco Use Types Packs/Day Years Used Date Smoking Tobacco: Never Assessed Sex and Gender Information Value Date Recorded Sex Assigned at Not on file Legal Sex Male 11:44 PM EST Gender Identity Not on file Sexual Orientation Not on file Plan of Treatment Health Maintenance Due Date Last Done Comments DTaP,Tdap,and Td Vaccines (1 - Tdap) 01/11/1983 Pneumococcal Vaccine: 50+ Ye ars (1 of 2 - PCV) 01/11/1983 Zoster Vaccines (1 of 2) 01/11/2014 Cholesterol Screening (Lipid Panel) 09/10/2022 Colorectal Cancer Screening: Colonoscopy 09/10/2022 HIV Screening 09/10/2022 Hepatitis C Screening 09/10/2022 Medicare Annual Wellness Visit 09/10/2022 Social Influencers of Health Screening 09/10/2022 RSV Immunization Adult Patie nts (1 - Risk 60-74 years 1-dose series) 2024 Depression Screening 10/08/2024 COVID-19 Vaccine (1 - 2023-2 5 season) 2025 Influenza Vaccine (#1) 2025 HIB Vaccines Aged Out No longer [...] DIFFERENTIAL Routine 03/24/2025 8:28 AM EDT Other [facility] (current) drug therapy CBC AND DIFFERENTIAL Routine 03/24/2025 8:28 AM EDT Other [facility] (current) drug therapy from Last 3 Months Results * (ABNORMAL) CBC auto differential (03/24/2025 8:28 AM EDT) [facility] Signature WBC 9.6 4.8 - 10.8 K/mcL LAB HEMETOLOGY METHOD 03/24/2025 10:53 AM [facility] LAB RBC 4.30(L) 4.50 - 5.50 M/mcL LAB HEMETOLOGY METHOD 03/24/2025 10:53 AM [facility] LAB Hemoglobin 10.1(L) 13.5 - 17.5 g/dL LAB HEMETOLOGY METHOD 03/24/2025 10:53 AM [facility] LAB Hematocrit 35.3(L) 42.0 - 54.0 % LAB HEMETOLOGY METHOD 03/24/2025 10:53 AM [facility] LAB MCV 82.3 79.0 - 98.0 FL LAB HEMETOLOGY METHOD 03/24/2025 10:53 AM [facility] LAB MCH 23.5(L) 27.0 - 32.0 pcg LAB HEMETOLOGY METHOD 03/24/2025 10:53 AM [facility] LAB MCHC 28.6(L) 32.0 - 37.0 g/dL LAB HEMETOLOGY METHOD 03/24/2025 10:53 AM [facility] LAB RDW 18.7(H) 11.0 - 15.0 % LAB HEMETOLOGY METHOD 03/24/2025 10:53 AM [facility] LAB Platelets 139 130 - 400 K/mcL LAB HEMETOLOGY METHOD 03/24/2025 10:53 AM [facility] LAB MPV LAB HEMETOLOGY METHOD 03/24/2025 10:53 AM [facility] LAB Comment:Not Measured NRBC 0.0 <1.0 % LAB HEMETOLOGY METHOD 03/24/2025 10:53 AM [facility] LAB NRBC Absolute 0.00 <0.10 K/mcL LAB HEMETOLOGY METHOD 03/24/2025 10:53 AM [facility] LAB Neutrophils Relative 77.5 % LAB HEMETOLOGY METHOD 03/24/2025 10:53 AM [facility] LAB Lymphocytes Relative 11.7 % LAB HEMETOLOGY METHOD 03/24/2025 10:53 AM [facility] LAB Monocytes Relative 9.8 % LAB HEMETOLOGY METHOD 03/24/2025 10:53 AM [facility] LAB Eosinophils Relative 0.2 % LAB HEMETOLOGY METHOD 03/24/2025 10:53 AM [facility] LAB Basophils Relative 0.1 % LAB HEMETOLOGY METHOD 03/24/2025 10:53 AM [facility] LAB Immature Granulocytes Relative 0.7 % LAB HEMETOLOGY METHOD 03/24/2025 10:53 AM [facility] LAB Neutrophils Absolute 7.39(H) 1.50 - 7.00 K/mcL LAB HEMETOLOGY METHOD 03/24/2025 10:53 AM EDT [facility] LAB Lymphocytes Absolute 1.12 1.00 - 5.00 K/mcL LAB HEMETOLOGY METHOD 03/24/2025 10:53 AM EDT [facility] LAB Monocytes Absolute 0.94 0.20 - 1.00 K/[facility] LAB HEMETOLOGY METHOD 03/24/2025 10:53 AM EDT [facility] LAB Eosinophils Absolute 0.02 0.00 - 0.50 K/[facility] LAB HEMETOLOGY METHOD 03/24/2025 10:53 AM EDT [facility] LAB Basophils Absolute 0.01 0.00 - 0.20 K/[facility] LAB HEMETOLOGY METHOD 03/24/2025 10:53 AM EDT [facility] LAB Immature Granulocytes Absolute 0.07(H) 0.00 - 0.03 K/[facility] LAB HEMETOLOGY METHOD 03/24/2025 10:53 AM EDT [facility] ([facility] LAB Blood Venous blood specimen / Unknown Venipuncture / Unknown 03/24/2025 8:28 AM EDT 03/24/2025 10:22 AM EDT us Freeman Cerna MD LAB BLOOD ORDERABLES Final Resul t [facility] LAB [address] [place] [address], from Last 3 Months Insurance MEDICAID - [place] MEDICARE [employer] MEDICARE Care Teams Welder Repair Relationship Specialty Start Date End Date Regan Hogue MD [address] [place] [address] [address] [place] PCP - General Internal Medicine 11/12/24
--- OUTSIDE RECORDS SUMMARY | 2025-06-12 09:13 | XMS_ITS | Clinical Summary ---
Author Organization [facility] Address [address] [address] Phone Care Team Providers Care Workers Compensation Coordinator Name Role Phone Regan Hogue MD Primary Care Provider [phone] Allergies Active Allergy Reactions Criticality Noted Date Comments Diphenhydramine Other (see comments) 12/19/2023 Haloperidol Other (see comments) 12/19/2023 [place] Other (see comments) 12/19/2023 Thiothixene (Tiotixene) Other [...] Schizoaffective disorder, not otherwise specifie d 12/20/2023 [place] adverse reaction <Sequela> 12/20/2023 Acute nontraumatic kidney injury 12/20/2023 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 12/20/2023 Atherosclerotic heart diseas e of [place] coronary artery without angina pectoris, 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
--- OUTSIDE RECORDS SUMMARY | 2025-06-12 09:13 | XMS_ITS | Encounter Summary ---
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 CBC AND DIFFERENTIAL Routine 11/04/2024 6:33 AM EST 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 documented in this encounter Results * (ABNORMAL) CBC auto differential (11/04/2024 6:33 AM EST) WBC 7.7 4.8 - 10.8 K/[facility] LAB HEMETOLOGY METHOD 11/04/2024 10:21 AM EST [facility] ([facility]) [facility] LAB RBC 3.90(L) 4.50 - 5.50 M/[facility] LAB HEMETOLOGY METHOD 11/04/2024 10:21 AM WHITE [...] Resul t [facility] LAB [address] [place], [place] [address] [phone] documented in this encounter Visit Diagnoses Diagnosis Other fpc (current) drug therapy documented in this encounter Care Teams Community Engagement Specialist Relationship Specialty Start Date End Date Regan Hogue MD [address] [place] [address] [address] [place] PCP - General Internal Medicine 11/12/24 documented as of this encounter
--- OUTSIDE RECORDS SUMMARY | 2025-06-12 09:13 | XMS_ITS | Encounter Summary ---
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 CBC WITH AUTO DIFFERENTIAL Routine 08/12/2024 9:00 AM EST 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 CBC AND DIFFERENTIAL Routine 08/12/2024 9:00 AM EST 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 documented in this encounter Results * (ABNORMAL) CBC auto differential (08/12/2024 9:00 AM EST) [facility] Signature WBC 6.5 4.8 - 10.8 K/[facility] LAB HEMETOLOGY METHOD 08/12/2024 11:44 AM EST [facility] LAB RBC 4.30(L) 4.50 - 5.50 M/mcL LAB HEMETOLOGY METHOD 08/12/2024 11:44 AM [facility] LAB Hemoglobin 11.6(L) 13.5 - 17.5 g/dL LAB HEMETOLOGY METHOD 08/12/2024 11:44 AM [facility] LAB Hematocrit 37.1(L) 42.0 - 54.0 % LAB HEMETOLOGY METHOD 08/12/2024 11:44 AM [facility] LAB MCV 86.7 79.0 - 98.0 FL LAB HEMETOLOGY METHOD 08/12/2024 11:44 AM [facility] LAB MCH 27.1 27.0 - 32.0 pcg LAB HEMETOLOGY METHOD 08/12/2024 11:44 AM [facility] LAB MCHC 31.3(L) 32.0 - 37.0 g/dL LAB HEMETOLOGY METHOD 08/12/2024 11:44 AM [facility] LAB RDW 15.7(H) 11.0 - 15.0 % LAB HEMETOLOGY METHOD 08/12/2024 11:44 AM [facility] LAB Platelets 121(L) 130 - 400 K/mcL LAB HEMETOLOGY METHOD 08/12/2024 11:44 AM [facility] LAB MPV 12.6(H) 7.0 - 11.0 FL LAB HEMETOLOGY METHOD 08/12/2024 11:44 AM [facility] LAB NRBC 0.0 <1.0 % LAB HEMETOLOGY METHOD 08/12/2024 11:44 AM [facility] LAB NRBC Absolute 0.00 <0.10 K/mcL LAB HEMETOLOGY METHOD 08/12/2024 11:44 AM [facility] LAB Neutrophils Relative 74.8 % LAB HEMETOLOGY METHOD 08/12/2024 11:44 AM [facility] LAB Lymphocytes Relative 13.3 % LAB HEMETOLOGY METHOD 08/12/2024 11:44 AM [facility] LAB Monocytes Relative 9.4 % LAB HEMETOLOGY METHOD 08/12/2024 11:44 AM [facility] LAB Eosinophils Relative 1.1 % LAB HEMETOLOGY METHOD 08/12/2024 11:44 AM [facility] LAB Basophils Relative 0.6 % LAB HEMETOLOGY METHOD 08/12/2024 11:44 AM [facility] LAB Immature Granulocytes Relative 0.8 % LAB HEMETOLOGY METHOD 08/12/2024 11:44 AM [facility] LAB Neutrophils Absolute 4.86 1.50 - 7.00 K/mcL LAB HEMETOLOGY METHOD 08/12/2024 11:44 AM [facility] LAB Lymphocytes Absolute 0.86(L) 1.00 - 5.00 K/mcL LAB HEMETOLOGY METHOD 08/12/2024 11:44 AM [facility] LAB Monocytes Absolute 0.61 0.20 - 1.00 K/mcL LAB HEMETOLOGY METHOD 08/12/2024 11:44 AM [facility] LAB Eosinophils Absolute 0.07 0.00 - 0.50 K/mcL LAB HEMETOLOGY METHOD 08/12/2024 11:44 AM [facility] LAB Basophils Absolute 0.04 0.00 - 0.20 K/mcL LAB HEMETOLOGY METHOD 08/12/2024 11:44 AM [facility] LAB Immature Granulocytes Absolute 0.05(H) 0.00 - 0.03 K/mcL LAB HEMETOLOGY METHOD 08/12/2024 11:44 AM [facility] LAB Blood Venous blood specimen / Unknown Venipuncture / Unknown 08/12/2024 9:00 AM EST 08/12/2024 10:29 AM EST us Freeman Cerna MD LAB BLOOD ORDERABLES Final Resul t Performing Organization Address [facility]/ZIP Co de Phone Number [facility] LAB [address] [place] [address], * Travel phlebotomy fee (08/12/2024 9:00 AM EST) [facility] TRAVEL PHLEBOTOMY FEE Completed 08/12/2024 11:02 AM EST [facility] LAB Blood Venous blood specimen / Unknown Venipuncture / Unknown 08/12/2024 9:00 AM EST 08/12/2024 10:29 AM EST Freeman Cerna MD LAB BLOOD ORDERABLES Final Resul t Performing Organization Address [facility] Co de Phone Number [facility] [address] [place] [address], [place] [phone] documented in this encounter Visit Diagnoses Diagnosis Other detention (current) drug therapy documented in this encounter Care Teams Access Registrar Relationship Specialty Start Date End Date Regan Hogue MD [address] [place] [address] Dr [address] [place] PCP - General Internal Medicine 11/12/24 documented as of this encounter
--- OUTSIDE RECORDS SUMMARY | 2025-06-12 09:13 | XMS_ITS | Encounter Summary ---
Author Organization [facility] Address [address] [place] [address] Care Team Providers Care Storage Facility Rental Clerk Name Role Phone Regan Hogue MD Primary Care Provider [phone] Encounter Details Date Type Department Care Team (Late st Contact Info) Description 12/02/2024 Lab Requisition [facility] - Main Lab [address] [facility] [employer] [place] [address] Freeman Cerna MD [address] Other manager environmental (current) drug therapy Social History Tobacco Use [...] of this encounter Visit Diagnoses Diagnosis Other care home (current) drug therapy documented in this encounter Care Teams Storage Facility Rental Clerk Relationship Specialty Start Date End Date Regan Hogue MD [address] [place] [address] Dr [address] [place] [address] PCP - General Internal Medicine 11/12/24 documented as of this encounter
--- OUTSIDE RECORDS SUMMARY | 2025-06-12 09:13 | XMS_ITS | Encounter Summary ---
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 Social History Tobacco [...] DIFFERENTIAL Routine 12/30/2024 11:06 AM EDT Other shelter (current) drug therapy CBC AND DIFFERENTIAL Routine 12/30/2024 11:06 AM EDT Other shelter (current) drug therapy documented in this encounter Results * (ABNORMAL) CBC auto differential (12/30/2024 11:06 AM EDT) WBC 7.1 4.8 - 10.8 K/[facility] LAB HEMETOLOGY METHOD 12/30/2024 12:46 PM EDT [facility] RBC 4.70 4.50 - 5.50 M/[facility] LAB HEMETOLOGY METHOD 12/30/2024 12:46 PM [facility] LAB Hemoglobin 11.5(L) 13.5 - 17.5 g/dL LAB HEMETOLOGY METHOD [facility] Hematocrit 38.8(L) 42.0 - 54.0 % LAB HEMETOLOGY METHOD 12/30/2024 12:46 PM [facility] LAB MCV 83.3 79.0 - 98.0 FL LAB HEMETOLOGY METHOD 12/30/2024 12:[facility] MCH 24.7(L) 27.0 - 32.0 pcg LAB HEMETOLOGY METHOD 12/30/2024 12:46 PM [facility] LAB MCHC 29.6(L) 32.0 - 37.0 g/dL LAB HEMETOLOGY METHOD 12/30/2024 12:46 PM [facility] LAB RDW 16.1(H) 11.0 - 15.0 % LAB HEMETOLOGY METHOD 12/30/2024 12:46 PM [facility] LAB Platelets 183 130 - 400 K/mcL LAB HEMETOLOGY METHOD 12/30/2024 12:46 PM [facility] LAB MPV 11.9(H) 7.0 - 11.0 FL LAB HEMETOLOGY METHOD 12/30/2024 12:46 PM [facility] LAB NRBC 0.0 <1.0 % LAB HEMETOLOGY METHOD 12/30/2024 12:46 PM [facility] LAB NRBC Absolute 0.00 <0.10 K/mcL LAB HEMETOLOGY METHOD 12/30/2024 12:46 PM [facility] LAB Neutrophils Relative 78.9 % LAB HEMETOLOGY METHOD 12/30/2024 12:46 PM [facility] LAB Lymphocytes Relative 12.3 % LAB HEMETOLOGY METHOD 12/30/2024 12:46 PM EDT [facility] LAB Monocytes Relative 6.2 % LAB HEMETOLOGY METHOD 12/30/2024 12:[facility] Eosinophils Relative 1.4 % LAB HEMETOLOGY METHOD 12/30/2024 12:46 PM [facility] LAB Basophils Relative 0.6 % LAB HEMETOLOGY METHOD 12/30/2024 12:46 PM [facility] LAB Immature Granulocytes Relative 0.6 % LAB HEMETOLOGY METHOD 12/30/2024 12:46 PM [facility] LAB Neutrophils Absolute 5.57 1.50 - 7.00 K/mcL LAB HEMETOLOGY METHOD 12/30/2024 12:46 PM [facility] LAB Lymphocytes Absolute 0.87(L) 1.00 - 5.00 K/mcL LAB HEMETOLOGY METHOD 12/30/2024 12:[facility] Monocytes Absolute 0.44 0.20 - 1.00 K/mcL LAB HEMETOLOGY METHOD 12/30/2024 12:46 PM [facility] LAB Eosinophils Absolute 0.10 0.00 - 0.50 K/mcL LAB HEMETOLOGY METHOD 12/30/2024 12:46 PM [facility] LAB Basophils Absolute 0.04 0.00 - 0.20 K/mcL LAB HEMETOLOGY METHOD 12/30/2024 12:46 PM [facility] LAB Immature Granulocytes Absolute 0.04(H) 0.00 - 0.03 K/mcL LAB HEMETOLOGY METHOD 12/30/2024 12:46 PM [facility] LAB Blood Venous blood specimen / Unknown Venipuncture / Unknown 12/30/2024 11:06 AM EDT 12/30/2024 12:12 PM EDT us Freeman Cerna MD LAB BLOOD ORDERABLES Final Resul t [facility] [address] [place] [address], documented in this encounter Visit Diagnoses Diagnosis Other shelter (current) drug therapy documented in this encounter Care Teams Utility Maintenance Worker Relationship Specialty Start Date End Date Regan Hogue MD [address] [place] [address] Dr [address] [place] PCP - General Internal Medicine 11/12/24 documented as of this encounter
--- OUTSIDE RECORDS SUMMARY | 2025-06-12 09:13 | XMS_ITS | Encounter Summary ---
Author Organization [facility] Address [address] [place] [address] Care Team Providers Care Brake Tester Name Role Phone Regan Hogue MD Primary Care Provider [phone] Encounter Details Date Type Department Care Team (Late st Contact Info) Description 10/07/[address] 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 Social History Tobacco Use [...] DIFFERENTIAL Routine 10/07/2024 7:40 AM EST Other processor grain (current) drug therapy CBC AND DIFFERENTIAL Routine 10/07/2024 7:40 AM EST Other processor grain (current) drug therapy documented in this encounter Results * (ABNORMAL) CBC auto differential (10/07/2024 7:40 AM EST) WBC 8.0 4.8 - 10.8 K/[facility] LAB HEMETOLOGY METHOD 10/07/2024 12:19 PM EST [facility] LAB RBC 4.20(L) 4.50 - 5.50 M/[facility] LAB HEMETOLOGY METHOD 10/07/2024 12:19 PM [facility] LAB Hemoglobin 11.1(L) 13.5 - 17.5 g/dL LAB HEMETOLOGY METHOD 10/07/2024 12:19 PM [facility] LAB Hematocrit 36.7(L) 42.0 - 54.0 % LAB HEMETOLOGY METHOD 10/07/2024 12:19 PM [facility] LAB MCV 87.0 79.0 - 98.0 FL LAB HEMETOLOGY METHOD 10/07/2024 12:19 PM [facility] LAB MCH 26.3(L) 27.0 - 32.0 pcg LAB HEMETOLOGY METHOD 10/07/2024 12:19 PM [facility] LAB MCHC 30.2(L) 32.0 - 37.0 g/dL LAB HEMETOLOGY METHOD 10/07/2024 12:19 PM [facility] LAB RDW 15.3(H) 11.0 - 15.0 % LAB HEMETOLOGY METHOD 10/07/2024 12:19 PM [facility] LAB Platelets 160 130 - 400 K/mcL LAB HEMETOLOGY METHOD 10/07/2024 12:19 PM [facility] LAB MPV 12.9(H) 7.0 - 11.0 FL LAB HEMETOLOGY METHOD 10/07/2024 12:19 PM [facility] LAB NRBC 0.0 <1.0 % LAB HEMETOLOGY METHOD 10/07/2024 12:19 PM [facility] LAB NRBC Absolute 0.00 <0.10 K/mcL LAB HEMETOLOGY METHOD 10/07/2024 12:19 PM [facility] LAB Neutrophils Relative 72.5 % LAB HEMETOLOGY METHOD 10/07/2024 12:19 PM [facility] LAB Lymphocytes Relative 16.9 % LAB HEMETOLOGY METHOD 10/07/2024 12:19 PM [facility] LAB Monocytes Relative 7.4 % LAB HEMETOLOGY METHOD 10/07/2024 12:19 PM EST [facility] LAB Eosinophils Relative 2.1 % LAB HEMETOLOGY METHOD 10/07/2024 12:19 PM [facility] LAB Basophils Relative 0.6 % LAB HEMETOLOGY METHOD 10/07/2024 12:19 PM [facility] LAB Immature Granulocytes Relative 0.5 % LAB HEMETOLOGY METHOD 10/07/2024 12:19 PM [facility] LAB Neutrophils Absolute 5.78 1.50 - 7.00 K/mcL LAB HEMETOLOGY METHOD 10/07/2024 12:19 PM [facility] LAB Lymphocytes Absolute 1.35 1.00 - 5.00 K/mcL LAB HEMETOLOGY METHOD 10/07/2024 12:19 PM [facility] LAB Monocytes Absolute 0.59 0.20 - 1.00 K/mcL LAB HEMETOLOGY METHOD 10/07/2024 12:19 PM EST [facility] LAB Eosinophils Absolute 0.17 0.00 - 0.50 K/mcL LAB HEMETOLOGY METHOD 10/07/2024 12:19 PM [facility] LAB Basophils Absolute 0.05 0.00 - 0.20 K/mcL LAB HEMETOLOGY METHOD 10/07/2024 12:19 PM [facility] LAB Immature Granulocytes Absolute 0.04(H) 0.00 - 0.03 K/mcL LAB HEMETOLOGY METHOD 10/07/2024 12:19 PM [facility] LAB Blood Venous blood specimen / Unknown Venipuncture / Unknown 10/07/2024 7:40 AM EST 10/07/2024 11:28 AM EST us Freeman Cerna MD LAB BLOOD ORDERABLES Final Resul t [facility] [address] [place], [place] [address] [phone] documented in this encounter Visit Diagnoses Diagnosis Other retirement (current) drug therapy documented in this encounter Care Teams Brake Tester Relationship Specialty Start Date End Date Regan Hogue MD [address] [place] [address] Dr [address] [place] PCP - General Internal Medicine 11/12/24 documented as of this encounter
== END 2025-06-12 09:12 | disposition home or self-care (01) ==
LOC: HO.HCS 08:42
PROVIDERS: PCP Internal Medicine; Visit Provider Nurse Practitioner Family
DX: I42.1 Obstructive hypertrophic cardiomyopathy (principal); R79.89 Other specified abnormal findings of blood chemistry; R94.31 Abnormal electrocardiogram [ECG] [EKG]; I10 Essential (primary) hypertension
CPT/HCPCS: 99214; G2211

== ENCOUNTER → 2025-06-12 08:41 | Outpatient (BNVA) | payer MEDICARE, SELFPAY | PROVIDERS: PCP Internal Medicine; Visit Provider Nurse Practitioner Family | DX: I42.1 Obstructive hypertrophic cardiomyopathy (principal); R79.89 Other specified abnormal findings of blood chemistry; R94.31 Abnormal electrocardiogram [ECG] [EKG]; I10 Essential (primary) hypertension; E78.5 Hyperlipidemia, unspecified; Z79.4 Long term (current) use of insulin; E11.9 Type 2 diabetes mellitus without complications; Z79.82 Long term (current) use of aspirin; Z87.891 Personal history of nicotine dependence | CPT/HCPCS: 99212 ==

== ENCOUNTER 2025-07-17 10:41 | Outpatient (AMB) | payer MEDICARE, MEDICAID, SELFPAY ==
--- NOTE | 2025-07-17 11:25 | A.OFFVIS_ITS ---
Intake Visit Reasons: Testopel insertion Intake Note: patient presents today for: testopel injection urology medications: trial testopel blood thinners: aspirin Chute Tender Required: No Accompanied by: Self / Same As Patient Allergies lithium ([place]) Allergy (Severe, Verified 07/17/25 11:27) Toxicity thiothixene Allergy (Severe, Verified 07/17/25 11:27) Swelling amoxicillin Allergy (Mild, Verified 07/17/25 11:27) Nose Bleed benztropine Allergy (Unknown, Verified 07/17/25 11:27) benztropine mesylate- unknown gabapentin (From NEURONTIN) Allergy (Unknown, Verified 07/17/25 11:27) Unknown fluphenazine (From Prolixin) Allergy (Verified 07/17/25 11:27) Unknown barium sulfate (BARIUM SULFATE) Adverse Reaction (Intermediate, Verified 07/17/25 11:27) Nausea and Vomiting haloperidol Adverse Reaction (Intermediate, Verified 07/17/25 11:27) Muscle tension in legs diphenhydramine (From Benadryl) Adverse Reaction (Unknown, Verified 07/17/25 11:27) urinary retention HPI Comments Details: Navid is a pleasant male. They are a patient of Dr Hogue. They are seen in the office today for the following urologic conditions. - hypogonadism - lower urinary tract symptoms Here for testosterone pellet placement Nonresponder to topical testosterone Recommend testosterone pellets given other issues Not suitable candidate for regular injectable testosterone. Has developmental delay and lives in a shared home. Difficulty with potential administration. The patient has both low T and diabetes Recent published data from large scale intervention trials indicates the benefit from all diabetic males having testosterone greater than 400 - T4DM 07/31 T 162, 05/01 140 Lower Urinary Tract Symptoms Prior office prostate procedures 2004 Prior use of tamsulosin Current medications alfuzosin Hypogonadism Restarted androgen replacement 2020 Discontinuity during COVID Baseline bipolar disease Labs - 08/29 495 - PSA 06/01 <0.1 Prior therapy testosterone packets [facility] Medical History (Updated 06/16/25 @ 17:15 by Klaudia Casillas VEGETABLE CUTTER-C) HOCM (hypertrophic obstructive cardiomyopathy) Vertigo Nocturnal hypoxemia Schizoaffective disorder, bipolar type Diabetic neuropathy Type II diabetes with penitentiary use of insulin BPH (benign prostatic hyperplasia) Diabetes mellitus Essential hypertension Coronary artery disease Osteoarthritis GERD without esophagitis Vitamin D deficiency Congestive heart failure COVID-19 Thought disorder Constipation COPD (chronic obstructive pulmonary disease) Smoker Diabetes mellitus Obesity (BMI 30-39.9) Pure hypercholesterolemia Prolonged QT interval Aggression Hypertension CHF (congestive heart failure) Cardiac arrhythmia Myocardial infarction Surgical History History of colonoscopy History of ankle surgery History of intestinal surgery History of transurethral resection of prostate Family History Father Medical history unknown Mother Medical history unknown Sister Alive and well Social History Household Members: Other Household Members Other:: Room mate Housing: House Housing Other:: [facility] Do you presently have visiting nurse or other home services: Yes Alcohol intake: current Alcohol intake frequency: holidays/special occasions only Alcohol type: beer Comment: 1:[address] Patient Tobacco Use Status: Former Tobacco user Tobacco use type: Cigarette Cigarette Packs Per Day: 0.5 Cigarettes Per Day: 10 Years Smoked: Many e-Cigarette/Vaping Use: Currently Using Second Hand Smoke Exposure: Yes Substance Use Type: Unknown Advance Directives Date on File: 01/14/24 service: No Current occupational status: disabled Sexual orientation: Straight/Heterosexual Cognitive needs: Yes Hearing needs: No Vision needs: Yes Office Meds Testopel 75 mg implant pellet Performing Provider: Jasiel Cox MD Performing Location: [facility] Administered by: Jasiel Cox MD on 07/17/25 12:34 Dose Route Admin Location Dispensed Lot Number Expiration Date [facility] Money Counter 75 mg implant 6 ea Total Dispensed Waste 6 ea 0 % lidocaine HCl 20 mg/mL (2 %) injection solution Performing Provider: Jasiel Cox MD Performing Location: [facility] Administered by: Jasiel Cox MD on 07/17/25 12:34 Dose Route Admin Location Dispensed Lot Number Expiration Date [facility] Money Counter 10 mL subcut 10 mL Total Dispensed Waste 10 mL 0 % Assessment & Plan Assessment & Plan (1) Hypogonadism in male: Comment: Topical testosterone Code(s): E29.1 - Testicular hypofunction Category: Medical Plan Three-month follow-up repeat pellet Orders: Orders Testosterone, Total 2 Months E29.1 - Testicular hypofunction AMB Testosterone Pellet Implant Today E29.1 - Testicular hypofunction Patient Instructions: This note is constructed using voice recognition software. While every effort has been made to ensure accuracy server security administrator errors may have been included. Imaging studies, laboratory and physical exam results were discussed and reviewed in detail. No major barriers to patient understanding were identified. An opportunity to ask questions regarding the treatment plan was provided. All questions were answered. The patient expressed understanding and agreement with the above treatment plan. The patient is aware they should contact our office by phone for worsening of their current condition or the appearance of new urologic symptoms. Compliance is encouraged with any medications and followup testing that is ordered. It is a privilege to participate in the urologic care of your patient. If you have any questions or concerns regarding treatment for the above conditions, or other urologic issues, please do not hesitate to contact me. The office telephone contact is [phone]. Sincerely, Dr Jasiel Cox MD, ROBERT [facility] - Urology Compassionate Specialist Care for the Genitourinary System Coding Level of Care Code Est Pt Level 3 (76506) Diagnoses Hypogonadism in male E29.1
== END 2025-07-17 12:17 | disposition home or self-care (01) ==
LOC: HO.HUSH 10:42
PROVIDERS: PCP Internal Medicine; Visit Provider Urology
DX: E29.1 Testicular hypofunction (principal)
CPT/HCPCS: 11980; 99213

== ENCOUNTER → 2025-07-17 10:41 | Outpatient (BNVA) | payer MEDICARE, MEDICAID, SELFPAY | PROVIDERS: PCP Internal Medicine; Visit Provider Urology | DX: E29.1 Testicular hypofunction (principal) | CPT/HCPCS: 11980; 99212; J2003; J3490 ==

== ENCOUNTER 2025-08-12 21:29 | Inpatient (IN) | payer MEDICARE, MEDICAID, SELFPAY ==
--- NOTE | 2025-08-12 | ECG_ITS ---
Test Reason : SOB Blood Pressure : */* mmHG Vent. Rate : 96 BPM Atrial Rate : 96 BPM P-R Int : 170 ms QRS Dur : 114 ms QT Int : 390 ms P-R-T Axes : 72 19 175 degrees QTcB Int : 492 ms Normal sinus rhythm Incomplete left bundle branch block Left ventricular hypertrophy with repolarization abnormality ( Sokolow-Vences , [place] product ) Prolonged QT Abnormal ECG No previous ECGs available Referred By: Generic ED Physician Electronically Signed By:
--- NOTE | ~2025-08-12 | XR_ITS ---
CLINICAL HISTORY: sob 1 view chest x-ray Comparison: None provided Findings: Diffuse bilateral airspace opacities mainly within mid to lower lung distribution. Heart is enlarged. No large pleural effusion. No pneumothorax. No acute soft tissue or osseous abnormality. Impression: 1. Constellation of findings as detailed above favoring to represent developing CHF however superimposed infectious or inflammatory process can not be excluded. This document has been electronically signed by: Prashanth Ortiz MD on 08/12/2025 22:38:42
[2025-08-12 21:41] VITALS: BP 103/56; BP 148/84; PULSE 100; PULSE 98; RESP 20; TEMP 36.5; O2SAT 82; O2SAT 89; BMI 37.6
[2025-08-12 21:47] VITALS: O2SAT 92
[2025-08-12 21:59] LABS: MANUAL DIFF FLAG NO
[2025-08-12 22:00] LABS: Hematocrit 33.6 % (42.0-52.0); Hemoglobin 10.2 g/dl (14.0-18.0); Imm Gran Abs Auto 0.06 X10*3/uL (0.00-0.03); Imm Gran Pct Auto 0.7 % (0.0-0.4); Lymphocytes Absolute Auto 0.7 X10*3/uL (1.2-4.9); Mean Corpuscular HGB Conc 30.4 g/dl (31.0-36.0); Mean Corpuscular Hemoglobin 26.2 pg (27.0-33.0); Mean Corpuscular Volume 86.4 fL (80.0-98.0); NRBC Abs Auto 0.000 X10*3/uL (0.0-0.012); NRBC Pct Auto 0.0 /100WBC (0.0-0.2); Platelet Count 147 X10*3/uL (160-400); Red Blood Count 3.89 X10*6/uL (4.60-5.80); White Blood Count 8.9 X10*3/uL (4.8-10.8)
--- NOTE | 2025-08-12 22:11 | ED_ITS ---
HPI - SOB/Dyspnea General Chief Complaint: Dyspnea Stated Complaint: DIFFICULTY BREATHING Time Seen by Provider: 08/12/25 22:04 History of Present Illness ED Provider: daniel HPI Narrative: 60-year-old male on arrival no history was provided the patient is a poor historian. EMS picked him up from a retirement the staff there was unclear with the patient's medical history and had not provided paperwork. The patient appears to have some developmental or mental delay. He arrived on saturating 80% on EMS arrival, they placed him on 4 L nasal cannula and he arrived here in the high 90s. He was mildly tachypneic. Denied any chest pain, cough, fever to me Related Data Home Medications ?Medication ?Instructions ?Recorded ?Confirmed aspirin 81 mg tablet,delayed 81 mg PO DAILY 11/20/24 0 06/12/25 release clozapine 25 mg tablet 25 mg PO BEDTIME 03/20/25 insulin glargine 100 unit/mL (3 15 unit subcut QAM 06/12/25 mL) subcutaneous pen (Lantus Solostar U-100 Insulin) famotidine 10 mg tablet 10 mg PO DAILY 06/12/2503/01 metoprolol tartrate 100 mg tablet 100 mg PO DAILY 03/0106/12/25 nitroglycerin 0.4 mg sublingual 0.4 mg sublingual Q5M PRN 06/12/25 06/12/25 tablet trazodone 50 mg tablet 50 mg PO BEDTIME PRN 5 06/12/25 Previous Rx's ?Medication ?Instructions ?Recorded pen needle, diabetic 32 gauge x #100 ea 11/11/24 (BD Erica 2nd Gen Pen Needle) nicotine (polacrilex) 4 mg buccal 4 mg buccal Q2H PRN Smoking 12/10/24 lozenge Cessation 30 days #108 ea sennosides 8.6 mg-docusate sodium 2 tab PO DAILY const ipation 30 12/10/24 50 mg tablet (Senna Plus) days #60 tabs albuterol sulfate 90 mcg/actuation 2 puff inhalation Q 6H PRN 01/05/25 aerosol inhaler Shortness Of Breath Or Wheez ing 30 days #1 inhaler furosemide 40 mg tablet 40 mg PO DAILY #30 tabs 07/02 blood sugar diagnostic (Contour #100 ea 07/01/25 Next Test Strips) blood-glucose meter (Contour Next #1 ea 07/01/25 Gen Meter) lancets 33 gauge (E-Z Ject Lancets) #100 ea 07/01/25 testosterone 75 mg implant pellet 75 mg subcut Q12W #6 ea 07/06/25 (Testopel) omeprazole 20 mg capsule,delayed 40 mg (2 x 20 mg) PO BID@0630,1630 07/20/25 release #180 caps cholecalciferol (vitamin D3) 25 25 mcg PO DAILY #30 ca ps 07/25/25 mcg (1,000 unit) capsule atorvastatin 20 mg tablet 20 mg PO DAILY #30 tabs 03/01 Allergies Allergy/AdvReac Type Severity Reaction Status Date / Time lithium ([place]) Allergy Severe Toxicity Verified 07/17/25 11:27 thiothixene Allergy Severe Swelling Verified 07/17/25 11:27 amoxicillin Allergy Mild Nose Bleed Verified 07/17/25 11:27 benztropine Allergy Unknown benztropine Verified 07/17/25 11:27 mesylate- unknown gabapentin (From NEURONTIN) Allergy Unknown Unknown Verified 07/17/25 11:27 fluphenazine (From Prolixin) Allergy Unknown Verified 07/17/25 11:27 metformin Allergy Anaphylaxis Unverified 08/12/25 21:44 barium sulfate (BARIUM AdvReac Intermediate Nausea and Verified 07/17/25 11:27 SULFATE) Vomiting haloperidol AdvReac Intermediate Muscle Verified 07/17/25 11:27 tension in legs diphenhydramine (From AdvReac Unknown urinary Verified 07/17/25 11:27 Benadryl) retention [facility] Past Medical History Medical History HOCM (hypertrophic obstructive cardiomyopathy) Vertigo Nocturnal hypoxemia Schizoaffective disorder, bipolar type Diabetic neuropathy 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 BPH (benign prostatic hyperplasia) Diabetes mellitus Essential hypertension Coronary artery disease Osteoarthritis GERD without esophagitis Vitamin D deficiency Congestive heart failure COVID-19 Thought disorder Constipation COPD (chronic obstructive pulmonary disease) Smoker Diabetes mellitus Obesity (BMI 30-39.9) Pure hypercholesterolemia Prolonged QT interval Aggression Hypertension CHF (congestive heart failure) Cardiac arrhythmia Myocardial infarction Surgical History History of colonoscopy History of ankle surgery History of intestinal surgery History of transurethral resection of prostate Family History Family History Father Medical history unknown Mother Medical history unknown Sister Alive and well Social History Social History Household Members: Other Household Members Other:: Room mate Housing: House Housing Other:: [facility] Do you presently have visiting nurse or other home services: Yes Alcohol intake: current Alcohol intake frequency: holidays/special occasions only Alcohol type: beer Comment: 1:[address] Patient Tobacco Use Status: Former Tobacco user Tobacco use type: Cigarette Cigarette Packs Per Day: 0.5 Cigarettes Per Day: 10 Years Smoked: Many Smoked in Last 30 Days: No e-Cigarette/Vaping Use: Currently Using Second Hand Smoke Exposure: Yes Use of substances other than those prescribed or required for medical reasons: No Substance Use Type: Unknown Advance Directives: Yes Advance Directives on File: Yes Advance Directives Date on File: 01/14/24 Do you have a plan to hurt others: No Plan service: No Current occupational status: disabled Sexual orientation: Straight/Heterosexual Cognitive needs: Yes Hearing needs: No Vision needs: Yes Physical Exam 2 Exam: Exam: EXAM: Gen: Alert, awake, well appearing, well hydrated. Head: Atraumatic Eyes: Anicteric, dysconjugate gaze ENT: Moist mucosa, no pallor. ? Neck: Supple. Skin: ?No observable rash or bruising on exposed or examined skin Respiratory: Tachypnea though on my initial examination around 23:20 no wheezing Cardiovascular: Rapid and regular. No murmurs or rub. Well perfused periphery, warm extremities. 1+ pitting edema in bilateral ankles Abdominal: Obese. No focal tenderness. Soft, no objective distension. No palpable masses or obvious organomegaly. ?No guarding, no rebound tenderness or other peritoneal findings. Neuro: Alert. Gross movement of all extremities intact. ? Vital Signs: Vital Signs: Last Vital Signs Temp 97.7 F 08/12/25 21:41 Pulse 93 08/13/25 00:00 Resp 20 08/13/25 00:00 BP 122/77 08/13/25 00:00 Pulse Ox 98 08/13/25 00:00 O2 Del Method Oxymask 08/13/25 00:00 O2 Flow Rate 4 08/13/25 00:00 BMI result Body Mass Index 37.6 Medications Administered Discontinued Medications Generic Name Dose Route Start Last Admin Trade Name Chelsy PRN Reason Stop Dose Admin Levalbuterol HCl 1.25 mg/ 0 mg 08/12/25 22:28 08/12/25 22:50 Ipratropium Ashley 0.5 mg INHALE 08/12/25 22:29 1.25 dose ONCE ONE Administration Furosemide 60 mg 08/12/25 23:40 08/12/25 23:53 Furosemide 100 Mg/10 Ml Vial IVPUSH 08/12/25 23:41 60 mg ONCE ONE Administration Protocol Insulin Human Regular 8 unit 08/12/25 22:31 08/12/25 22:43 Insulin Regular, Human 100 Unit/Ml 10 Ml Vial IVPUSH 08/12/25 22:32 8 unit ONCE ONE Administration Methylprednisolone Sodium Succinate 80 mg 08/12/25 22:28 08/12/25 22:43 Methylprednisolone Sod Succ 125 Mg/2 Ml Vial IVPUSH 08/12/25 22:29 80 mg ONCE ONE Administration Medical Decision Making Medical Decision Making MDM Narrative: Medical Decision Making: [age] male with hypoxia dyspnea. No thorough history provided and the patient is a poor historian himself. He did not have any fever and EMS thought he has been wheezing so on arrival he empirically received a DuoNeb and steroid. He had mild tachycardia and sinus. Oxygen improved with nasal cannula. On my end of the initial evaluation the patient the patient had no wheezing nor did I hear rales. He denied any chest pain. His ECG shows left bundle-branch block sinus rhythm rate 96 no comparison ECG has no records in our system Troponin mildly elevated we will repeat this. BNP substantially elevated, Bedside echo very limited due to habitus I am unable to effectively evaluate the LV contractility but I do not see clear or obvious signs of RV dilation or pericardial effusion. He does have bilateral B-lines suggesting interstitial alveolar syndrome in the proper clinical setting that could be pulmonary edema possibly cardiogenic. The patient is afebrile and I will avoid antibiotics given no clear sign of infection at this time. Lasix 60 mg we will be ordered until I wait for any additional records Around 23:45 was brought to my attention that the patient's chart has been updated initially there was no record of previous visits here but now I see extensive medical history here. The patient does have documented HFrEF , JUDY, diabetes, schizophrenia, hypertrophic obstructive cardiomyopathy, this makes the clinical scenario Preliminary Favored Differential Diagnosis: CHF with acute severe exacerbation, COPD or restrictive lung disease, pneumonia, pleural effusion, pneumothorax, unlikely PE given the lack of chest pain or other symptoms or history to suggest this among additional considered etiologies Testing Interpreted Independently: ECG now reviewable compared to previous with an unchanged sinus rhythm and left bundle-branch block no sgarbossa criteria Radiology or Lab testing Results Reviewed: ?See below for details Consults: ?See below for details Independent Historians/External Chart Reviews: ?See below for details Social Determinants of Health Impacting MDM/Planning: ?See below for details Lab Data MDM Lab Attestation statement: I reviewed the patient's lab results. 08/12/25 21:52 08/12/25 21:52 Labs: Lab Results 08/12/25 08/12/25 08/12/25 Range/Units 21:52 22:42 23:54 WBC 8.9 (4.8-10.8) X10*3/uL RBC 3.89 L (4.60-5.80) X10*6/uL Hgb 10.2 L (14.0-18.0) g/dl Hct 33.6 L (42.0-52.0) % MCV 86.4 (80.0-98.0) fL MCH 26.2 L (27.0-33.0) pg MCHC 30.4 L (31.0-36.0) g/dl RDW 19.6 H (11.0-16.0) % Plt Count 147 L (160-400) X10*3/uL MPV 12.0 (9.4-12.4) fL Immature Gran % (Auto) 0.7 H (0.0-0.4) % Neut % (Auto) 84.2 H (45-73) % Lymph % (Auto) 7.5 L (20-40) % Elbert % (Auto) 6.4 (2-11) % Eos % (Auto) 0.7 (0-4) % Baso % (Auto) 0.5 (0-2) % Lymph # (Auto) 0.7 L (1.2-4.9) X10*3/uL Elbert # (Auto) 0.6 (0.1-1.2) X10*3/uL Eos # (Auto) 0.1 (0.0-0.4) X10*3/uL Baso # (Auto) 0.0 (0.0-0.2) X10*3/uL Abs Immat Gran (auto) 0.06 H (0.00-0.03) X10*3/uL Absolute Neuts (auto) 7.5 (2.0-8.3) x10*3/uL Absolute Nucleated RBC 0.000 (0.0-0.012) X10*3/uL Nucleated RBC % (auto) 0.0 (0.0-0.2) /100WBC Sodium 143 (135-145) mmol/L Potassium 4.0 (3.3-5.1) mmol/L Chloride 104 (96-108) mmol/L Carbon Dioxide 28 (22-29) mmol/L Anion Gap 15 (12-20) BUN 30 H (9-16) mg/dL Creatinine 1.58 H (0.5-1.4) mg/dL Estim Creat Clear Calc 59.6 Estimated GFR 45 POC Glucose 374 H* 243 H (60-115) mg/dL Random Glucose 428 H* (60-115) mg/dL Calcium 8.8 (8.4-10.2) mg/dL Total Bilirubin 0.5 (0.0-1.0) mg/dL AST 41 H (5-37) U/L ALT 57 H (0-40) U/L Alkaline Phosphatase 113 (39-117) U/L Troponin I High Sens 83.1 H (<3.5-35.0) ng/L NT-Pro-B Natriuret Pep 1408.2 H (<300) pg/mL Total Protein 6.6 (6.5-8.0) g/dL Albumin 4.0 (3.5-5.0) g/dL Procalcitonin 0.18 ng/mL COVID-19 ([facility]US) Negative (Negative) COVID-19 Clin Com See Note Influenza Type A (ELI) Negative (Negative) Influenza Type B (ELI) Negative (Negative) Influenza A & B Note See Note Procedures Procedure Narrative Procedure Narrative: EMERGENCY ULTRASOUND INTERPRETATION-Limited Echocardiography [This study was ordered, performed, and interpreted by myself. 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 Images were stored CPT: 77893,17346,77874] Critical Care Time Critical Care Time Critical Care Time: Yes Total Critical Care Time: 30 Attestation: ED Critical Care: Severe decompensated acute on chronic CHF reduced ejection fraction Authorized and Performed by: Rudy Jimenez MD Total critical care time: Approximately 30 min Due to a high probability of clinically significant, life threatening deterioration, the patient required my highest level of preparedness to intervene emergently and I personally spent this critical care time directly and personally managing the patient. This critical care time included obtaining a history; examining the patient; pulse oximetry; ordering and review of studies; arranging urgent treatment with development of a management plan; evaluation of patient's response to treatment; frequent reassessment; and, discussions with other providers. This critical care time was performed to assess and manage the high probability of imminent, life-threatening deterioration that could result in multi-organ failure. It was exclusive of separately billable procedures and treating other patients and teaching time. Discharge Plan Discharge Clinical Impression: CHF (congestive heart failure) Patient Disposition: Admitted As Inpatient
[2025-08-12 22:16] LABS: COVID-19 Test Negative (Negative); IDNOW Serial# 58CA691E
[2025-08-12 22:21] LABS: Troponin-I High Sensitivity 83.1 ng/L (<3.5-35.0)
[2025-08-12 22:28] LABS: Alanine Aminotransferase 57 U/L (0-40); Albumin Level 4.0 g/dL (3.5-5.0); Alkaline Phosphatase 113 U/L (39-117); Anion Gap 15 (12-20); Aspartate Amino Transferase 41 U/L (5-37); Blood Urea Nitrogen 30 mg/dL (9-16); Calcium 8.8 mg/dL (8.4-10.2); Carbon Dioxide 28 mmol/L (22-29); Chloride 104 mmol/L (96-108); Creatinine Clr Calc Pharmacy 59.6; Estimated Glomerular Filt Rate 45; Potassium 4.0 mmol/L (3.3-5.1); Sodium 143 mmol/L (135-145); Total Protein 6.6 g/dL (6.5-8.0)
[2025-08-12 22:32] VITALS: BP 110/65; PULSE 93; RESP 20; O2SAT 95
--- NOTE | 2025-08-12 22:48 | PC.NURSE ---
pt biba from care home, a&ox4, respirations even and unlabored. pt reports x1 month of shortness of breath and high sugars, pt reports diabetes regimen has not been working. ems unsure if pt is on 4l nc baseline. pt 82% on room air, placed on 4l nc and pt sating only 85%, pt switched to oxymax sating 95%. MD aware. 20g placed in right ac. vss otherwise. pt medicated per dec.
[2025-08-12 22:50] LABS: NT Pro B Type Natriuretic Pept 1408.2 pg/mL (<300)
[2025-08-12 22:50] LABS: Glucose, Whole Blood 374 mg/dL (60-115)
[2025-08-12] MEDS: levalbuterol HCL 1.25 MG, Ipratropium Bromide 0.5 MG INHALE (22:50)
[2025-08-12 22:52] VITALS: PULSE 90; RESP 20; O2SAT 95
--- OUTSIDE RECORDS SUMMARY | 2025-08-12 22:58 | XMS_ITS | Clinical Summary ---
Author Organization [address] [facility] Address [address] [place] [address] Phone Care Team Providers Care Federal Java Developer Name Role Phone Regan Hogue MD Primary Care Provider [phone] Encounters Date Type Department Care Team Description 08/10/2025 Lab Requisition [facility] [address] [place] [address] Amara Trivedi NP Other terminal make up operator (current) drug therapy 07/24/2025 Lab Requisition [facility] [address] [place] [address] Freeman Cerna MD Other terminal make up operator (current) drug therapy from Last 3 Months Social History Tobacco Use Types Packs/Day Years Used Date Smoking Tobacco: Never Assessed Sex and Gender Information Value Date Recorded Sex Assigned at Not on file Legal Sex Male 11:44 PM EST Gender Identity Not on file Sexual Orientation Not on file Plan of Treatment Health Maintenance Due Date Last Done Comments Colorectal Cancer Screening: Colonoscopy 1965 DTaP,Tdap,and Td Vaccines (1 - Tdap) 01/11/1983 Pneumococcal Vaccine: 50+ Ye ars (1 of 2 - PCV) 01/11/1983 RSV Immunization Adult Patie nts (1 - Risk 50-74 years 1-dose series) 01/11/2014 Zoster Vaccines (1 of 2) 01/11/2014 Cholesterol Screening (Lipid Panel) 09/10/2022 HIV Screening 09/10/2022 Hepatitis C Screening 09/10/2022 Medicare Annual Wellness Visit 09/10/2022 Social Influencers of Health Screening 09/10/2022 Depression Screening 10/08/2024 COVID-19 Vaccine (1 - [...] Diagnosis Comments CBC WITH AUTO DIFFERENTIAL Routine 08/11/2025 7:15 AM EST Other terminal make up operator (current) drug therapy CBC AND DIFFERENTIAL Routine 08/11/2025 7:15 AM EST Other terminal make up operator (current) drug therapy CBC WITH AUTO DIFFERENTIAL Routine 07/24/2025 9:06 AM EDT Other half-way (current) drug therapy CBC AND DIFFERENTIAL Routine 07/24/2025 9:06 AM EDT Other half-way (current) drug therapy from Last 3 Months Results * (ABNORMAL) CBC auto differential (08/11/2025 7:15 AM EST) Only the most recent of2 resultswithin the time period is included. WBC 9.4 4.8 - 10.8 K/mcL LAB HEMETOLOGY METHOD 08/11/2025 1:17 PM EST [facility] RBC 4.10(L) 4.50 - 5.50 M/mcL LAB HEMETOLOGY METHOD 08/11/2025 1:17 PM EST [facility] Hemoglobin 10.6(L) 13.5 - 17.5 g/dL LAB HEMETOLOGY METHOD 08/11/2025 1:17 PM [facility] Hematocrit 35.5(L) 42.0 - 54.0 % LAB HEMETOLOGY METHOD 08/11/2025 1:17 PM [facility] MCV 86.0 79.0 - 98.0 FL LAB HEMETOLOGY METHOD 08/11/2025 1:17 PM [facility] MCH 25.7(L) 27.0 - 32.0 pcg LAB HEMETOLOGY METHOD 08/11/2025 1:17 PM [facility] MCHC 29.9(L) 32.0 - 37.0 g/dL LAB HEMETOLOGY METHOD 08/11/2025 1:17 PM [facility] RDW 19.5(H) 11.0 - 15.0 % LAB HEMETOLOGY METHOD 08/11/2025 1:17 PM [facility] Platelets 138 130 - 400 K/mcL LAB HEMETOLOGY METHOD 08/11/2025 1:17 PM [facility] MPV 12.3(H) 7.0 - 11.0 FL LAB HEMETOLOGY METHOD 08/11/2025 1:17 PM [facility] NRBC 0.0 <1.0 % LAB HEMETOLOGY METHOD 08/11/2025 1:17 PM [facility] NRBC Absolute 0.00 <0.10 K/mcL LAB HEMETOLOGY METHOD 08/11/2025 1:17 PM [facility] Neutrophils Relative 78.4 % LAB HEMETOLOGY METHOD 08/11/2025 1:17 PM [facility] Lymphocytes Relative 12.7 % LAB HEMETOLOGY METHOD 08/11/2025 1:17 PM [facility] Monocytes Relative 7.4 % LAB HEMETOLOGY METHOD 08/11/2025 1:17 PM EST [facility] Eosinophils Relative 0.6 % LAB HEMETOLOGY METHOD 08/11/2025 1:17 PM [facility] Basophils Relative 0.3 % LAB HEMETOLOGY METHOD 08/11/2025 1:17 PM [facility] Immature Granulocytes Relative 0.6 % LAB HEMETOLOGY METHOD 08/11/2025 1:17 PM [facility] Neutrophils Absolute 7.34(H) 1.50 - 7.00 K/mcL LAB HEMETOLOGY METHOD 08/11/2025 1:17 PM [facility] Lymphocytes Absolute 1.19 1.00 - 5.00 K/mcL LAB HEMETOLOGY METHOD 08/11/2025 1:17 PM [facility] Monocytes Absolute 0.69 0.20 - 1.00 K/mcL LAB HEMETOLOGY METHOD 08/11/2025 1:17 PM EST [facility] Eosinophils Absolute 0.06 0.00 - 0.50 K/mcL LAB HEMETOLOGY METHOD 08/11/2025 1:17 PM [facility] Basophils Absolute 0.03 0.00 - 0.20 K/mcL LAB HEMETOLOGY METHOD 08/11/2025 1:17 PM [facility] Immature Granulocytes Absolute 0.06(H) 0.00 - 0.03 K/mcL LAB HEMETOLOGY METHOD 08/11/2025 1:17 PM [facility] Blood Venous blood specimen / Unknown Venipuncture / Unknown 08/11/2025 7:15 AM EST 08/11/2025 10:02 AM EST us Amara Trivedi NP LAB BLOOD ORDERABLES Final R esult [facility] [address] [place] [address], from Last 3 Months Insurance MEDICAID - [place] MEDICARE [employer] MEDICARE Care Teams Federal Java Developer Relationship Specialty Start Date End Date Regan Hogue MD [address] [place] [address] [address] [place] PCP - General Internal Medicine 11/12/24
--- OUTSIDE RECORDS SUMMARY | 2025-08-12 22:58 | XMS_ITS | Encounter Summary ---
Author Organization [facility] Address [address] [place] [address] Care Team Providers Care Implant Coordinator Name Role Phone Regan Hogue MD Primary Care Provider Encounter Details Date Type Department Care Team (Late st Contact Info) Description 10/07/2024 Lab Requisition [facility] - [facility] Lab [address] [facility] [place] [address] Freeman Cerna MD [address] Other senior living (current) drug therapy Social History Tobacco Use [...] DIFFERENTIAL Routine 10/07/2024 7:40 AM EST Other intermediate teacher (current) drug therapy CBC AND DIFFERENTIAL Routine 10/07/2024 7:40 AM EST Other intermediate teacher (current) drug therapy documented in this encounter Results * (ABNORMAL) CBC auto differential (10/07/2024 7:40 AM EST) WBC 8.0 4.8 - 10.8 K/[facility] LAB HEMETOLOGY METHOD 10/07/2024 12:19 PM EST [facility] RBC 4.20(L) 4.50 - 5.50 M/[facility] LAB HEMETOLOGY METHOD 10/07/2024 12:19 PM [facility] Hemoglobin 11.1(L) 13.5 - 17.5 g/dL LAB HEMETOLOGY METHOD 10/07/2024 12:19 PM [facility] LAB Hematocrit 36.7(L) 42.0 - 54.0 % LAB HEMETOLOGY METHOD 10/07/2024 12:19 PM [facility] LAB MCV 87.0 79.0 - 98.0 FL LAB HEMETOLOGY METHOD 10/07/2024 12:19 PM [facility] LAB MCH 26.3(L) 27.0 - 32.0 pcg LAB HEMETOLOGY METHOD 10/07/2024 12:19 PM [facility] LAB MCHC 30.2(L) 32.0 - 37.0 g/dL LAB HEMETOLOGY METHOD 10/07/2024 12:19 PM [facility] LAB RDW 15.3(H) 11.0 - 15.0 % LAB HEMETOLOGY METHOD 10/07/2024 12:19 PM [facility] LAB Platelets 160 130 - 400 K/mcL LAB HEMETOLOGY METHOD 10/07/2024 12:19 PM [facility] LAB MPV 12.9(H) 7.0 - 11.0 FL LAB HEMETOLOGY METHOD 10/07/2024 12:19 PM [facility] LAB NRBC 0.0 <1.0 % LAB HEMETOLOGY METHOD 10/07/2024 12:19 PM [facility] NRBC Absolute 0.00 <0.10 K/mcL LAB HEMETOLOGY METHOD 10/07/2024 12:19 PM [facility] Neutrophils Relative 72.5 % LAB HEMETOLOGY METHOD 10/07/2024 12:19 PM [facility] Lymphocytes Relative 16.9 % LAB HEMETOLOGY METHOD 10/07/2024 12:19 PM [facility] Monocytes Relative 7.4 % LAB HEMETOLOGY METHOD 10/07/2024 12:19 PM EST [facility] Eosinophils Relative 2.1 % LAB HEMETOLOGY METHOD 10/07/2024 12:19 PM [facility] Basophils Relative 0.6 % LAB HEMETOLOGY METHOD 10/07/2024 12:19 PM [facility] Immature Granulocytes Relative 0.5 % LAB HEMETOLOGY METHOD 10/07/2024 12:19 PM [facility] Neutrophils Absolute 5.78 1.50 - 7.00 K/mcL LAB HEMETOLOGY METHOD 10/07/2024 12:19 PM [facility] Lymphocytes Absolute 1.35 1.00 - 5.00 K/mcL LAB HEMETOLOGY METHOD 10/07/2024 12:19 PM [facility] Monocytes Absolute 0.59 0.20 - 1.00 K/mcL LAB HEMETOLOGY METHOD 10/07/2024 12:19 PM EST [facility] LAB Eosinophils Absolute 0.17 0.00 - 0.50 K/mcL LAB HEMETOLOGY METHOD 10/07/2024 12:19 PM [facility] Basophils Absolute 0.05 0.00 - 0.20 K/mcL LAB HEMETOLOGY METHOD 10/07/2024 12:19 PM [facility] Immature Granulocytes Absolute 0.04(H) 0.00 - 0.03 K/mcL LAB HEMETOLOGY METHOD 10/07/2024 12:19 PM [facility] Blood Venous blood specimen / Unknown Venipuncture / Unknown 10/07/2024 7:40 AM EST 10/07/2024 11:28 AM EST us Freeman Cerna MD LAB BLOOD ORDERABLES Final Resul t [facility] [address] [place], [place] [address] [phone] documented in this encounter Visit Diagnoses Diagnosis Other intermediate teacher (current) drug therapy documented in this encounter Care Teams Implant Coordinator Relationship Specialty Start Date End Date Regan Hogue MD [address] [place] [address] Dr [address] RANDALL Goodwin PCP - General Internal Medicine 11/12/24 documented as of this encounter
--- OUTSIDE RECORDS SUMMARY | 2025-08-12 22:58 | XMS_ITS | Encounter Summary ---
Author Organization [facility] Address [address] [place] [address] Care Team Providers Care Medical Device Name Role Phone Regan Hogue MD Primary Care Provider Encounter Details Date Type Department Care Team (Late st Contact Info) Description 09/09/2024 Lab Requisition [facility] - Main Lab 299 [facility] [place] [address] Freeman Cerna MD [address] Other residential (current) drug therapy Social History Tobacco Use [...] DIFFERENTIAL Routine 09/09/2024 6:39 AM EST Other middle or intermediate school principal (current) drug therapy CBC AND DIFFERENTIAL Routine 09/09/2024 6:39 AM EST Other middle or intermediate school principal (current) drug therapy documented in this encounter Results * (ABNORMAL) CBC auto differential (09/09/2024 6:39 AM EST) [facility] Signature WBC 7.0 4.8 - 10.8 K/[facility] LAB HEMETOLOGY METHOD 09/09/2024 10:01 AM EST [facility] LAB RBC 4.20(L) 4.50 - 5.50 M/[facility] LAB HEMETOLOGY METHOD 09/09/2024 10:01 AM [...] LAB HEMETOLOGY METHOD 09/09/2024 10:01 AM EST [facility] LAB Eosinophils Absolute 0.14 0.00 [...] MD LAB BLOOD ORDERABLES Final Resul t [facility] LAB [address] [place], [place] [address] [phone] documented in this encounter Visit Diagnoses Diagnosis Other middle or intermediate school principal (current) drug therapy documented in this encounter Care Teams Medical Device Relationship Specialty Start Date End Date Regan Hogue MD [address] [place] [address] Dr [address] [place] PCP - General Internal Medicine 11/12/24 documented as of this encounter
--- OUTSIDE RECORDS SUMMARY | 2025-08-12 22:58 | XMS_ITS | Encounter Summary ---
Author Organization [facility] Address [address] [place] [address] Care Team Providers Care Amr Physician Name Role Phone Regan Hogue MD Primary Care Provider Encounter Details Date Type Department Care Team (Late st Contact Info) Description 11/04/2024 Lab Requisition [facility] - Main Lab 299 [facility] [place] [address] Freeman Cerna MD [address] Other custodial (current) drug therapy Social History Tobacco Use [...] Routine 11/04/2024 6:33 AM EST Other intermediate card tender (current) drug therapy CBC AND DIFFERENTIAL Routine 11/04/2024 6:33 AM EST Other intermediate card tender (current) drug therapy documented in this encounter Results * (ABNORMAL) CBC auto differential (11/04/2024 6:33 AM EST) WBC 7.7 4.8 - 10.8 K/[facility] LAB HEMETOLOGY METHOD 11/04/2024 10:21 AM EST [facility] LAB RBC 3.90(L) 4.50 - 5.50 M/[facility] LAB HEMETOLOGY METHOD 11/04/2024 10:21 AM [facility] LAB Hemoglobin 10.4(L) 13.5 - 17.5 g/dL LAB HEMETOLOGY METHOD 11/04/2024 10:21 AM [facility] LAB Hematocrit 34.8(L) 42.0 - 54.0 % LAB HEMETOLOGY METHOD 11/04/2024 10:21 AM [facility] LAB MCV 88.8 79.0 - 98.0 FL LAB HEMETOLOGY METHOD 11/04/2024 10:21 AM [facility] LAB MCH 26.5(L) 27.0 - 32.0 pcg LAB HEMETOLOGY METHOD 11/04/2024 10:21 AM [facility] LAB MCHC 29.9(L) 32.0 - 37.0 g/dL LAB HEMETOLOGY METHOD 11/04/2024 10:21 AM [facility] LAB RDW 16.6(H) 11.0 - 15.0 % LAB HEMETOLOGY METHOD 11/04/2024 10:21 AM [facility] LAB Platelets 131 130 - 400 K/mcL LAB HEMETOLOGY METHOD 11/04/2024 10:21 AM [facility] LAB MPV 13.1(H) 7.0 - 11.0 FL LAB HEMETOLOGY METHOD 11/04/2024 10:21 AM [facility] LAB NRBC 0.0 <1.0 % LAB HEMETOLOGY METHOD 11/04/2024 10:21 AM [facility] LAB NRBC Absolute 0.00 <0.10 K/mcL LAB HEMETOLOGY METHOD 11/04/2024 10:21 AM [facility] LAB Neutrophils Relative 70.9 % LAB HEMETOLOGY METHOD 11/04/2024 10:21 AM [facility] LAB Lymphocytes Relative 17.2 % LAB HEMETOLOGY METHOD 11/04/2024 10:21 AM [facility] LAB Monocytes Relative 9.1 % LAB HEMETOLOGY METHOD 11/04/2024 10:21 AM EST [facility] LAB Eosinophils Relative 1.8 % LAB HEMETOLOGY METHOD 11/04/2024 10:21 AM [facility] LAB Basophils Relative 0.7 % LAB HEMETOLOGY METHOD 11/04/2024 10:21 AM [facility] LAB Immature Granulocytes Relative 0.3 % LAB HEMETOLOGY METHOD 11/04/2024 10:21 AM EST [facility] LAB Neutrophils Absolute 5.46 1.50 - 7.00 K/mcL LAB HEMETOLOGY METHOD 11/04/2024 10:21 AM [facility] LAB Lymphocytes Absolute 1.32 1.00 - 5.00 K/mcL LAB HEMETOLOGY METHOD 11/04/2024 10:21 AM [facility] LAB Monocytes Absolute 0.70 0.20 - 1.00 K/mcL LAB HEMETOLOGY METHOD 11/04/2024 10:21 AM EST [facility] LAB Eosinophils Absolute 0.14 0.00 - 0.50 K/mcL LAB HEMETOLOGY METHOD 11/04/2024 10:21 AM [facility] LAB Basophils Absolute 0.05 0.00 - 0.20 K/mcL LAB HEMETOLOGY METHOD 11/04/2024 10:21 AM [facility] LAB Immature Granulocytes Absolute 0.02 0.00 - 0.03 K/mcL LAB HEMETOLOGY METHOD 11/04/2024 10:21 AM [facility] LAB Blood Venous blood specimen / Unknown Venipuncture / Unknown 11/04/2024 6:33 AM EST 11/04/2024 8:32 AM EST us Freeman Cerna MD LAB BLOOD ORDERABLES Final Resul t [facility] LAB [address] [place], [place] [address] [phone] documented in this encounter Visit Diagnoses Diagnosis Other custodial (current) drug therapy documented in this encounter Care Teams Amr Physician Relationship Specialty Start Date End Date Regan Hogue MD [address] [place] [address] Dr [address] [place] PCP - General Internal Medicine 11/12/24 documented as of this encounter
--- OUTSIDE RECORDS SUMMARY | 2025-08-12 22:58 | XMS_ITS | Encounter Summary ---
Author Organization [facility] Address [address] [place] [address] Care Team Providers Care Goat Farmer Name Role Phone Regan Hogue MD Primary Care Provider Encounter Details Date Type Department Care Team (Late st Contact Info) Description 12/30/[address] [facility] - Main Lab 299 [facility] [place] [address] Freeman Cerna MD [address] Other nursing home (current) drug therapy Social History Tobacco [...] DIFFERENTIAL Routine 12/30/2024 11:06 AM EDT Other intermediate frame tender (current) drug therapy CBC AND DIFFERENTIAL Routine 12/30/2024 11:06 AM EDT Other intermediate frame tender (current) drug therapy documented in this encounter Results * (ABNORMAL) CBC auto differential (12/30/2024 11:06 AM EDT) WBC 7.1 4.8 - 10.8 K/[facility] LAB HEMETOLOGY METHOD 12/30/2024 12:[address] [facility] LAB RBC 4.70 4.50 - 5.50 M/[facility] LAB HEMETOLOGY METHOD 12/30/2024 12:46 PM [facility] LAB Hemoglobin 11.5(L) 13.5 - 17.5 g/dL LAB HEMETOLOGY METHOD [facility] Hematocrit 38.8(L) 42.0 - 54.0 % LAB HEMETOLOGY METHOD 12/30/2024 12:46 PM [facility] LAB MCV 83.3 79.0 - 98.0 FL LAB HEMETOLOGY METHOD 12/30[facility]2024 12[facility] MCH 24.7(L) 27.0 - 32.0 [...] LAB HEMETOLOGY METHOD 12/30/2024 12:46 PM EDT [facility] LAB Monocytes Relative 6.2 % LAB HEMETOLOGY METHOD 12/30/2024 12:[facility] Eosinophils Relative 1.4 % LAB [...] K/mcL LAB HEMETOLOGY METHOD 12/30/2024 12:46 [facility] Monocytes Absolute 0.44 0.20 - [...] ORDERABLES Final Resul t [facility] ([facility] HOSPITAL LAB [address] [place] [address], documented in this encounter Visit Diagnoses Diagnosis Other intermediate frame tender (current) drug therapy documented in this encounter Care Teams Goat Farmer Relationship Specialty Start Date End Date Regan Hogue MD [address] [place] [address] Dr [address] [place] PCP - General Internal Medicine 11/12/24 documented as of this encounter
--- OUTSIDE RECORDS SUMMARY | 2025-08-12 22:58 | XMS_ITS | Encounter Summary ---
Author Organization [facility] Address [address] [place] [address] Care Team Providers Care Fire Prevention Research Engineer Name Role Phone Regan Hogue MD Primary Care Provider Encounter Details Date Type Department Care Team (Late st Contact Info) Description 02/23/2025 Lab Requisition [facility] - Main Lab 299 [facility] [place] [address] Freeman Cerna MD [address] Other alf (current) drug therapy Social History Tobacco Use [...] DIFFERENTIAL Routine 02/24/2025 6:34 AM EDT Other assistant terminal manager (current) drug therapy CBC AND DIFFERENTIAL Routine 02/24/2025 6:34 AM EDT Other assistant terminal manager (current) drug therapy documented in this encounter Results * (ABNORMAL) CBC auto differential (02/24/2025 6:34 AM EDT) WBC 8.6 4.8 - 10.8 K/[facility] LAB HEMETOLOGY METHOD 02/24/2025 8:23 AM EDT [facility] LAB RBC 4.70 4.50 - 5.50 M/[facility] LAB HEMETOLOGY METHOD 02/24/2025 8:23 AM [facility] LAB Hemoglobin 11.2(L) 13.5 - 17.5 g/dL LAB HEMETOLOGY METHOD 02/24/2025 8:23 AM [facility] LAB Hematocrit 38.4(L) 42.0 - 54.0 % LAB HEMETOLOGY METHOD 02/24/2025 8:23 AM [facility] LAB MCV 81.7 79.0 - 98.0 FL LAB HEMETOLOGY METHOD 02/24/2025 8:23 AM [facility] LAB MCH 23.8(L) 27.0 - 32.0 pcg LAB HEMETOLOGY METHOD 02/24/2025 8:23 AM [facility] LAB MCHC 29.2(L) 32.0 - 37.0 g/dL LAB HEMETOLOGY METHOD 02/24/2025 8:23 AM [facility] LAB RDW 17.6(H) 11.0 - 15.0 % LAB HEMETOLOGY METHOD 02/24/2025 8:23 AM [facility] LAB Platelets 207 130 - 400 K/mcL LAB HEMETOLOGY METHOD 02/24/2025 8:23 AM [facility] LAB MPV 12.0(H) 7.0 - 11.0 FL LAB HEMETOLOGY METHOD 02/24/2025 8:23 AM [facility] LAB NRBC 0.0 <1.0 % LAB HEMETOLOGY METHOD 02/24/2025 8:23 AM [facility] LAB NRBC Absolute 0.00 <0.10 K/mcL LAB HEMETOLOGY METHOD 02/24/2025 8:23 AM [facility] LAB Neutrophils Relative 67.7 % LAB HEMETOLOGY METHOD 02/24/2025 8:23 AM [facility] LAB Lymphocytes Relative 18.2 % LAB HEMETOLOGY METHOD 02/24/2025 8:23 AM EDT [facility] LAB Monocytes Relative 9.9 % LAB HEMETOLOGY METHOD 02/24/2025 8:23 AM EDT [facility] LAB Eosinophils Relative 3.0 % LAB HEMETOLOGY METHOD 02/24/2025 8:23 AM [facility] LAB Basophils Relative 0.7 % LAB HEMETOLOGY METHOD 02/24/2025 8:23 AM EDT [facility] LAB Immature Granulocytes Relative 0.5 % LAB HEMETOLOGY METHOD 02/24/2025 8:23 AM EDT [facility] LAB Neutrophils Absolute 5.81 1.50 - 7.00 K/mcL LAB HEMETOLOGY METHOD 02/24/2025 8:23 AM [facility] LAB Lymphocytes Absolute 1.56 1.00 - 5.00 K/mcL LAB HEMETOLOGY METHOD 02/24[facility]25 8[facility] Monocytes Absolute 0.85 0.20 - 1.00 K/mcL LAB HEMETOLOGY METHOD 02/24/2025 8:23 AM [facility] LAB Eosinophils Absolute 0.26 0.00 - 0.50 K/mcL LAB HEMETOLOGY METHOD 02/24/2025 8:23 AM [facility] LAB Basophils Absolute 0.06 0.00 - 0.20 K/mcL LAB HEMETOLOGY METHOD 02/24/2025 8:23 AM [facility] LAB Immature Granulocytes Absolute 0.04(H) 0.00 - 0.03 K/mcL LAB HEMETOLOGY METHOD 02/24/2025 8:23 AM [facility] LAB Blood Venous blood specimen / Unknown Venipuncture / Unknown 02/24/2025 6:34 AM EDT 02/24/2025 7:50 AM EDT us Freeman Cerna MD LAB BLOOD ORDERABLES Final Resul t [facility] ([facility] HOSPITAL LAB [address] [place] [address], documented in this encounter Visit Diagnoses Diagnosis Other alf (current) drug therapy documented in this encounter Care Teams Fire Prevention Research Engineer Relationship Specialty Start Date End Date Regan Hogue MD [address] [place] [address] Dr [address] [place], [place] PCP - General Internal Medicine 11/12/24 documented as of this encounter
--- OUTSIDE RECORDS SUMMARY | 2025-08-12 22:58 | XMS_ITS | Encounter Summary ---
Author Organization [facility] Address [address] [place] [address] Care Team Providers Care Conflict Resolution Professional Name Role Phone Regan Hogue MD Primary Care Provider [phone] Encounter Details Date Type Department Care Team (Late st Contact Info) Description 12/02/2024 Lab Requisition [facility] - Main Lab 299 [facility] [place] [address] Freeman Cerna MD [address] Other long-term (current) 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 Social [...] of this encounter Visit Diagnoses Diagnosis Other long-term (current) 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 documented in this encounter Care Teams Conflict Resolution Professional Relationship Specialty Start Date End Date Regan Hogue MD [address] [place] [address] [address] [place] [address] PCP - General Internal Medicine 11/12/24 documented as of this encounter
--- OUTSIDE RECORDS SUMMARY | 2025-08-12 22:58 | XMS_ITS | Encounter Summary ---
Author Organization [facility] Address [address] [place] [address] Care Team Providers Care Disaster Recovery Analyst Name Role Phone Regan Hogue MD Primary Care Provider Encounter Details Date Type Department Care Team (Late st Contact Info) Description 07/24/[address] [facility] - Main Lab 299 [facility] [employer] [place] [address] Freeman Cerna MD [address] Other fci (current) drug therapy Social [...] Diagnosis Comments CBC WITH AUTO DIFFERENTIAL Routine 07/24/2025 9:06 AM EDT Other intermediate designer (current) drug therapy CBC AND DIFFERENTIAL Routine 07/24/2025 9:06 AM EDT Other intermediate designer (current) drug therapy documented in this encounter Results * (ABNORMAL) CBC auto differential (07/24/2025 9:06 AM EDT) WBC 7.6 4.8 - 10.8 K/[facility] LAB HEMETOLOGY METHOD 07/24/2025 10:02 AM EDT [facility] LAB RBC 4.70 4.50 - 5.50 M/[facility] LAB HEMETOLOGY METHOD 07/24/2025 10:02 AM [facility] LAB Hemoglobin 11.5(L) 13.5 - 17.5 g/dL LAB HEMETOLOGY METHOD 07/24/2025 10:02 AM [facility] LAB Hematocrit 37.8(L) 42.0 - 54.0 % LAB HEMETOLOGY METHOD 07/24/2025 10:02 AM [facility] LAB MCV 81.3 79.0 - 98.0 FL LAB HEMETOLOGY METHOD 07/24/2025 10:02 AM [facility] LAB MCH 24.7(L) 27.0 - 32.0 pcg LAB HEMETOLOGY METHOD 07/24/2025 10:02 AM [facility] LAB MCHC 30.4(L) 32.0 - 37.0 g/dL LAB HEMETOLOGY METHOD 07/24/2025 10:02 AM [facility] LAB RDW 18.2(H) 11.0 - 15.0 % LAB HEMETOLOGY METHOD 07/24/2025 10:02 AM [facility] LAB Platelets 136 130 - 400 K/mcL LAB HEMETOLOGY METHOD 07/24/2025 10:02 AM [facility] LAB MPV LAB HEMETOLOGY METHOD 07/24/2025 10:02 AM [facility] LAB Comment:Not Measured NRBC 0.0 <1.0 % LAB HEMETOLOGY METHOD 07/24/2025 10:02 AM [facility] LAB NRBC Absolute 0.00 <0.10 K/mcL LAB HEMETOLOGY METHOD 07/24/2025 10:02 AM [facility] LAB Neutrophils Relative 78.3 % LAB HEMETOLOGY METHOD 07/24/2025 10:02 AM [facility] LAB Lymphocytes Relative 11.5 % LAB HEMETOLOGY METHOD 07/24/2025 10:02 AM [facility] LAB Monocytes Relative 7.6 % LAB HEMETOLOGY METHOD 07/24/2025 10:02 AM EDT [facility] LAB Eosinophils Relative 1.6 % LAB HEMETOLOGY METHOD 07/24/2025 10:02 AM [facility] LAB Basophils Relative 0.5 % LAB HEMETOLOGY METHOD 07/24/2025 10:02 AM EDT [facility] LAB Immature Granulocytes Relative 0.5 % LAB HEMETOLOGY METHOD 07/24/2025 10:02 AM EDT [facility] LAB Neutrophils Absolute 5.96 1.50 - 7.00 K/mcL LAB HEMETOLOGY METHOD [facility] Lymphocytes Absolute 0.88(L) 1.00 - 5.00 K/mcL LAB HEMETOLOGY METHOD 07/24/2025 10:[facility] Monocytes Absolute 0.58 0.20 - 1.00 K/mcL LAB HEMETOLOGY METHOD 07/24/2025 10:02 AM [facility] LAB Eosinophils Absolute 0.12 0.00 - 0.50 K/mcL LAB HEMETOLOGY METHOD 07/24/2025 10:02 AM [facility] LAB Basophils Absolute 0.04 0.00 - 0.20 K/mcL LAB HEMETOLOGY METHOD 07/24/2025 10:[facility] Immature Granulocytes Absolute 0.04(H) 0.00 - 0.03 K/mcL LAB HEMETOLOGY METHOD 07/24/2025 10:02 AM [facility] LAB Blood Venous blood specimen / Unknown Venipuncture / Unknown 07/24/2025 9:06 AM EDT 07/24/2025 9:47 AM EDT us Freeman Cerna MD LAB BLOOD ORDERABLES Final Resul t [facility]) HOSPITAL LAB [address] [place] [address], documented in this encounter Visit Diagnoses Diagnosis Other intermediate designer (current) drug therapy documented in this encounter Care Teams Disaster Recovery Analyst Relationship Specialty Start Date End Date Regan Hogue MD [address] [place] [address] [address] [place], [place] PCP - General Internal Medicine 11/12/24 documented as of this encounter
--- OUTSIDE RECORDS SUMMARY | 2025-08-12 22:58 | XMS_ITS | Clinical Summary ---
Author Organization [facility] Address [address] [address] Phone Care Team Providers Care Band Saw Marker Name Role Phone Regan Hogue MD Primary Care Provider [phone] Allergies Active Allergy Reactions Criticality Noted Date Comments Diphenhydramine Other (see comments) 12/19/2023 Haloperidol Other (see comments) 12/19/2023 [place] Other (see comments) 12/19/2023 Thiothixene (Tiotixene) Other [...] Schizoaffective disorder, not otherwise specifie d 12/20/2023 [place] adverse reaction <Sequela> 12/20/2023 Acute nontraumatic kidney injury 12/20/2023 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
--- OUTSIDE RECORDS SUMMARY | 2025-08-12 22:58 | XMS_ITS | Encounter Summary ---
Author Organization [facility] Address [address] [place] [address] Care Team Providers Care Senior Information Developer Name Role Phone Regan Hogue MD Primary Care Provider [phone] Encounter Details Date Type Department Care Team (Late st Contact Info) Description 03/24/2025 Lab Requisition [facility] - Main Lab [address] [place] [address] Freeman Cerna MD [address] Other long-term (current) 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 Social [...] DIFFERENTIAL Routine 03/24/2025 8:28 AM EDT Other terminal operator (current) drug therapy CBC AND DIFFERENTIAL Routine 03/24/2025 8:28 AM EDT Other terminal operator (current) drug therapy documented in this encounter Results * (ABNORMAL) CBC auto differential (03/24/2025 8:28 AM EDT) WBC 9.6 4.8 - 10.8 K/[facility] LAB HEMETOLOGY METHOD 03/24/2025 10:53 AM EDT [facility] LAB RBC 4.30(L) 4.50 - 5.50 M/[facility] LAB HEMETOLOGY METHOD 03/24/2025 10:53 AM [facility] LAB Hemoglobin 10.1(L) 13.5 - 17.5 g/dL LAB HEMETOLOGY METHOD 03/24/2025 10:53 AM [facility] LAB Hematocrit 35.3(L) 42.0 - 54.0 % LAB HEMETOLOGY METHOD 03/24/2025 10:53 AM [facility] LAB MCV 82.3 79.0 - 98.0 FL LAB HEMETOLOGY METHOD 03/24/2025 10:53 AM [facility] LAB MCH 23.5(L) 27.0 - 32.0 pcg LAB HEMETOLOGY METHOD 03/24/2025 10:53 AM [facility] LAB MCHC 28.6(L) 32.0 - 37.0 g/dL LAB HEMETOLOGY METHOD 03/24/2025 10:53 AM [facility] LAB RDW 18.7(H) 11.0 - 15.0 % LAB HEMETOLOGY METHOD 03/24/2025 10:53 AM [facility] LAB Platelets 139 130 - 400 K/mcL LAB HEMETOLOGY METHOD 03/24/2025 10:53 AM [facility] LAB MPV LAB HEMETOLOGY METHOD 03/24/2025 10:53 AM [facility] LAB Comment:Not Measured NRBC 0.0 <1.0 % LAB HEMETOLOGY METHOD 03/24/2025 10:53 AM [facility] LAB NRBC Absolute 0.00 <0.10 K/mcL LAB HEMETOLOGY METHOD 03/24/2025 10:53 AM [facility] LAB Neutrophils Relative 77.5 % LAB HEMETOLOGY METHOD 03/24/2025 10:53 AM [facility] LAB Lymphocytes Relative 11.7 % LAB HEMETOLOGY METHOD 03/24/2025 10:53 AM [facility] LAB Monocytes Relative 9.8 % LAB HEMETOLOGY METHOD 03/24/2025 10:53 AM EDT [facility] LAB Eosinophils Relative 0.2 % LAB HEMETOLOGY METHOD 03/24/2025 10:53 AM EDT [facility] LAB Basophils Relative 0.1 % LAB HEMETOLOGY METHOD 03/24/2025 10:53 AM EDT [facility] LAB Immature Granulocytes Relative 0.7 % LAB HEMETOLOGY METHOD 03/24/2025 10:53 AM EDT [facility] LAB Neutrophils Absolute 7.39(H) 1.50 - 7.00 K/mcL LAB HEMETOLOGY METHOD 03/24/2025 10:53 AM [facility] LAB Lymphocytes Absolute 1.12 1.00 - 5.00 K/mcL LAB HEMETOLOGY METHOD 03/24/2025 10:53 AM EDT [facility] LAB Monocytes Absolute 0.94 0.20 - 1.00 K/mcL LAB HEMETOLOGY METHOD 03/24/2025 10:53 AM T [facility] LAB Eosinophils Absolute 0.02 0.00 - 0.50 K/mcL LAB HEMETOLOGY METHOD [facility]25 [facility] Basophils Absolute 0.01 0.00 - 0.20 K/mcL LAB HEMETOLOGY METHOD 03/24/2025 10:53 AM EDT [facility] LAB Immature Granulocytes Absolute 0.07(H) 0.00 - 0.03 K/mcL LAB HEMETOLOGY METHOD 03/24/2025 10:53 AM [facility] LAB Blood Venous blood specimen / Unknown Venipuncture / Unknown 03/24/2025 8:28 AM EDT 03/24/2025 10:22 AM EDT us Freeman Cerna MD LAB BLOOD ORDERABLES Final Resul t [facility] LAB [address] [place] [address], documented in this encounter Visit Diagnoses Diagnosis Other terminal operator (current) drug therapy documented in this encounter Care Teams Senior Information Developer Relationship Specialty Start Date End Date Regan Hogue MD [address] [place] [address] Dr [address] [place], [place] PCP - General Internal Medicine 11/12/24 documented as of this encounter
--- OUTSIDE RECORDS SUMMARY | 2025-08-12 22:58 | XMS_ITS | Encounter Summary ---
Author Organization [facility] Address [address] [place] [address] Care Team Providers Care Reservoir Caretaker Name Role Phone Regan Hogue MD Primary Care Provider Encounter Details Date Type Department Care Team (Late st Contact Info) Description 08/12/2024 Lab Requisition [facility] - Main Lab [address] [place] [address] Freeman Cerna MD [address] Other long-term (current) 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 Social [...] FEE Routine 08/12/2024 9:00 AM EST Other intermission coordinator (current) drug therapy CBC WITH AUTO DIFFERENTIAL Routine 08/12/2024 9:00 AM EST Other intermission coordinator (current) drug therapy CBC AND DIFFERENTIAL Routine 08/12/2024 9:00 AM EST Other long-term (current) 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 documented in this encounter Results * (ABNORMAL) CBC auto differential (08/12/2024 9:00 AM EST) [facility] Signature WBC 6.5 4.8 - 10.8 K/[facility] LAB HEMETOLOGY METHOD 08/12/2024 11:44 AM EST [facility] LAB RBC 4.30(L) 4.50 - 5.50 M/mcL LAB HEMETOLOGY METHOD 08/12/2024 11:44 AM [facility] LAB Hemoglobin 11.6(L) 13.5 - 17.5 g/dL LAB HEMETOLOGY METHOD 08/12/2024 11:44 AM [facility] LAB Hematocrit 37.1(L) 42.0 - 54.0 % LAB HEMETOLOGY METHOD 08/12/2024 11:44 AM [facility] LAB MCV 86.7 79.0 - 98.0 FL LAB HEMETOLOGY METHOD 08/12/2024 11:44 AM [facility] LAB MCH 27.1 27.0 - 32.0 pcg LAB HEMETOLOGY METHOD 08/12/2024 11:44 AM [facility] LAB MCHC 31.3(L) 32.0 - 37.0 g/dL LAB HEMETOLOGY METHOD 08/12/2024 11:44 AM [facility] LAB RDW 15.7(H) 11.0 - 15.0 % LAB HEMETOLOGY METHOD 08/12/2024 11:44 AM [facility] LAB Platelets 121(L) 130 - 400 K/mcL LAB HEMETOLOGY METHOD 08/12/2024 11:44 AM [facility] LAB MPV 12.6(H) 7.0 - 11.0 FL LAB HEMETOLOGY METHOD 08/12/2024 11:44 AM [facility] LAB NRBC 0.0 <1.0 % LAB HEMETOLOGY METHOD 08/12/2024 11:44 AM [facility] LAB NRBC Absolute 0.00 <0.10 K/mcL LAB HEMETOLOGY METHOD 08/12/2024 11:44 AM [facility] LAB Neutrophils Relative 74.8 % LAB HEMETOLOGY METHOD 08/12/2024 11:44 AM [facility] LAB Lymphocytes Relative 13.3 % LAB HEMETOLOGY METHOD 08/12/2024 11:44 AM [facility] LAB Monocytes Relative 9.4 % LAB HEMETOLOGY METHOD 08/12/2024 11:44 AM [facility] LAB Eosinophils Relative 1.1 % LAB HEMETOLOGY METHOD 08/12/2024 11:44 AM [facility] LAB Basophils Relative 0.6 % LAB HEMETOLOGY METHOD 08/12/2024 11:44 AM [facility] LAB Immature Granulocytes Relative 0.8 % LAB HEMETOLOGY METHOD 08/12/2024 11:44 AM [facility] LAB Neutrophils Absolute 4.86 1.50 - 7.00 K/mcL LAB HEMETOLOGY METHOD 08/12/2024 11:44 AM [facility] LAB Lymphocytes Absolute 0.86(L) 1.00 - 5.00 K/mcL LAB HEMETOLOGY METHOD 08/12/2024 11:44 AM [facility] LAB Monocytes Absolute 0.61 0.20 - 1.00 K/mcL LAB HEMETOLOGY METHOD 08/12/2024 11:44 AM [facility] LAB Eosinophils Absolute 0.07 0.00 - 0.50 K/mcL LAB HEMETOLOGY METHOD 08/12/2024 11:44 AM [facility] LAB Basophils Absolute 0.04 0.00 - 0.20 K/mcL LAB HEMETOLOGY METHOD 08/12/2024 11:44 AM [facility] LAB Immature Granulocytes Absolute 0.05(H) 0.00 - 0.03 K/mcL LAB HEMETOLOGY METHOD 08/12/2024 11:44 AM [facility] LAB Blood Venous blood specimen / Unknown Venipuncture / Unknown 08/12/2024 9:00 AM EST 08/12/2024 10:29 AM EST us Freeman Cerna MD LAB BLOOD ORDERABLES Final Resul t Performing Organization Address [facility]/ZIP Co de Phone Number [facility] LAB [address] [place] [address], * Travel phlebotomy fee (08/12/2024 9:00 AM EST) [facility] TRAVEL PHLEBOTOMY FEE Completed 08/12/2024 11:02 AM EST [facility] LAB Blood Venous blood specimen / Unknown Venipuncture / Unknown 08/12/2024 9:00 AM EST 08/12/2024 10:29 AM EST Freeman Cerna MD LAB BLOOD ORDERABLES Final Resul t Performing Organization Address [facility] Co de Phone Number [facility] LAB [address] [place] [address], [place] [phone] documented in this encounter Visit Diagnoses Diagnosis Other long-term (current) 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 documented in this encounter Care Teams Reservoir Caretaker Relationship Specialty Start Date End Date Regan Hogue MD [address] [place] [address] Dr [address] [place] PCP - General Internal Medicine 11/12/24 documented as of this encounter
--- OUTSIDE RECORDS SUMMARY | 2025-08-12 22:58 | XMS_ITS | Encounter Summary ---
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 LAB HEMETOLOGY METHOD 01/27/2025 8:36 AM EDT [facility] LAB RBC 4.90 4.50 - 5.50 M/[facility] LAB HEMETOLOGY METHOD 01/27/2025 8:36 AM [facility] LAB Hemoglobin 11.9(L) 13.5 - 17.5 g/dL LAB HEMETOLOGY METHOD 01/27/2025 8:36 AM [facility] LAB Hematocrit 40.1(L) 42.0 - 54.0 % LAB HEMETOLOGY METHOD 01/27/2025 8:36 AM [facility] LAB MCV 82.7 79.0 - 98.0 FL LAB HEMETOLOGY METHOD 01/27/2025 8:36 AM [facility] LAB MCH 24.5(L) 27.0 - 32.0 pcg LAB HEMETOLOGY METHOD 01/27/2025 8:36 AM [facility] LAB MCHC 29.7(L) 32.0 - 37.0 g/dL LAB HEMETOLOGY METHOD 01/27/2025 8:36 AM [facility] LAB RDW 17.3(H) 11.0 - 15.0 % LAB HEMETOLOGY METHOD 01/27/2025 8:36 AM [facility] LAB Platelets 205 130 - 400 K/mcL LAB HEMETOLOGY METHOD 01/27/2025 8:36 AM [facility] LAB MPV 12.8(H) 7.0 - 11.0 FL LAB HEMETOLOGY METHOD 01/27/2025 8:36 AM [facility] LAB NRBC 0.0 <1.0 % LAB HEMETOLOGY METHOD 01/27/2025 8:36 AM [facility] LAB NRBC Absolute 0.00 <0.10 K/mcL LAB HEMETOLOGY METHOD 01/27/2025 8:36 AM [facility] LAB Neutrophils Relative 73.5 % LAB HEMETOLOGY METHOD 01/27/2025 8:36 AM [facility] LAB Lymphocytes Relative 14.6 % LAB [...] MD LAB BLOOD ORDERABLES Final Resul t [facility] LAB [address] [place] [address], documented in this encounter Visit Diagnoses Diagnosis Other alf (current) drug therapy documented in this encounter Care Teams Studio Control Operator Relationship Specialty Start Date End Date Regan Hogue MD [address] [place] [address] Dr [address] [place], [place] PCP - General Internal Medicine 11/12/24 documented as of this encounter
--- OUTSIDE RECORDS SUMMARY | 2025-08-12 22:58 | XMS_ITS | Encounter Summary ---
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) drug therapy Social History Tobacco [...] DIFFERENTIAL Routine 08/11/2025 7:15 AM EST Other longterm (current) 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 CBC AND DIFFERENTIAL Routine 08/11/2025 7:15 AM EST Other ferry terminal supervisor (current) drug therapy documented in this encounter Results * (ABNORMAL) CBC auto differential (08/11/2025 7:15 AM EST) WBC 9.4 4.8 - 10.8 K/[facility] LAB HEMETOLOGY METHOD 08/11/2025 1:17 PM EST [facility] LAB RBC 4.10(L) 4.50 - 5.50 M/[facility] LAB HEMETOLOGY METHOD 08/11/2025 1:17 PM [facility] LAB Hemoglobin 10.6(L) 13.5 - 17.5 g/dL LAB HEMETOLOGY METHOD 08/11/2025 1:17 PM [facility] LAB Hematocrit 35.5(L) 42.0 - 54.0 % LAB HEMETOLOGY METHOD 08/11/2025 1:17 PM [facility] LAB MCV 86.0 79.0 - 98.0 FL LAB HEMETOLOGY METHOD 08/11/2025 1:17 PM [facility] LAB MCH 25.7(L) 27.0 - 32.0 pcg LAB HEMETOLOGY METHOD 08/11/2025 1:17 PM [facility] LAB MCHC 29.9(L) 32.0 - 37.0 g/dL LAB HEMETOLOGY METHOD 08/11/2025 1:17 PM [facility] LAB RDW 19.5(H) 11.0 - 15.0 % LAB HEMETOLOGY METHOD 08/11/2025 1:17 PM [facility] LAB Platelets 138 130 - 400 K/mcL LAB HEMETOLOGY METHOD 08/11/2025 1:17 PM [facility] LAB MPV 12.3(H) 7.0 - 11.0 FL LAB HEMETOLOGY METHOD 08/11/2025 1:17 PM [facility] LAB NRBC 0.0 <1.0 % LAB HEMETOLOGY METHOD 08/11/2025 1:17 PM [facility] LAB NRBC Absolute 0.00 <0.10 K/mcL LAB HEMETOLOGY METHOD 08/11/2025 1:17 PM [facility] LAB Neutrophils Relative 78.4 % LAB HEMETOLOGY METHOD 08/11/2025 1:17 PM [facility] LAB Lymphocytes Relative 12.7 % LAB HEMETOLOGY METHOD 08/11/2025 1:17 PM [facility] LAB Monocytes Relative 7.4 % LAB HEMETOLOGY METHOD 08/11/2025 1:17 PM EST [facility] LAB Eosinophils Relative 0.6 % LAB HEMETOLOGY METHOD 08/11/2025 1:17 PM [facility] LAB Basophils Relative 0.3 % LAB HEMETOLOGY METHOD 08/11/2025 1:17 PM [facility] LAB Immature Granulocytes Relative 0.6 % LAB HEMETOLOGY METHOD 08/11/2025 1:17 PM [facility] LAB Neutrophils Absolute 7.34(H) 1.50 - 7.00 K/mcL LAB HEMETOLOGY METHOD 08/11/2025 1:17 PM [facility] LAB Lymphocytes Absolute 1.19 1.00 - 5.00 K/mcL LAB HEMETOLOGY METHOD 08/11/2025 1:17 PM [facility] LAB Monocytes Absolute 0.69 0.20 - 1.00 K/mcL LAB HEMETOLOGY METHOD 08/11/2025 1:17 PM [facility] LAB Eosinophils Absolute 0.06 0.00 - 0.50 K/mcL LAB HEMETOLOGY METHOD 08/11/2025 1:17 PM [facility] LAB Basophils Absolute 0.03 0.00 - 0.20 K/mcL LAB HEMETOLOGY METHOD 08/11/2025 1:17 PM [facility] LAB Immature Granulocytes Absolute 0.06(H) 0.00 - 0.03 K/mcL LAB HEMETOLOGY METHOD 08/11/2025 1:17 PM [facility] LAB Blood Venous blood specimen / Unknown Venipuncture / Unknown 08/11/2025 7:15 AM EST 08/11/2025 10:02 AM EST us Amara Trivedi NP LAB BLOOD ORDERABLES Final R esult [facility] LAB [address] [place] [address], documented in this encounter Visit Diagnoses Diagnosis Other longterm (current) 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 documented in this encounter Care Teams Dining Service Worker Relationship Specialty Start Date End Date Regan Hogue MD [address] [place] [address] [address] [place] PCP - General Internal Medicine 11/12/24 documented as of this encounter
--- NOTE | 2025-08-12 23:10 | PC.NURSE ---
pt longterm #[phone]. Staff to fax over hx on pt. MD Logan aware
[2025-08-12 23:17] LABS: IDNOW Serial# 55D5AD1C; Influenza B2 Negative (Negative)
[2025-08-12 23:53] VITALS: BP 126/80
[2025-08-12] MEDS: Furosemide 100 MG/10 ML VIAL 60 MG IVPUSH (23:53)
--- NOTE | 2025-08-12 23:57 | PM.IMHP ---
History of Present Illness Date of Service: 08/12/25 Attending physician on admission: Paxton Luong Chief Complaint: hypoxia Patient is a 60-year-old male with a past medical history significant for smoking, severe COPD on 4 L via NC at baseline, type 2 diabetes, hypertension, CAD, history VT, HF PEF, HOCM, HLD, prolonged QT, JUDY and schizophrenia, who presented to the ED from the retirement due to shortness of breath and hypoxia. The patient reports that he has had shortness of breath for the past 4-6 months. When EMS arrived his oxygen saturation was 80%. They felt that he was wheezing and given DuoNeb prior to arrival with improvement of his oxygen to 98%. The patient is a poor historian due to cognitive impairment and is unable to provide additional history at this time. 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 BPH (benign prostatic hyperplasia) Diabetes mellitus Essential hypertension Coronary artery disease Osteoarthritis GERD without esophagitis Vitamin D deficiency Congestive heart failure COVID-19 Thought disorder Constipation COPD (chronic obstructive pulmonary disease) Smoker Diabetes mellitus Obesity (BMI 30-39.9) Pure hypercholesterolemia Prolonged QT interval Aggression Hypertension CHF (congestive heart failure) Cardiac arrhythmia Myocardial infarction Family History Father Medical history unknown Mother Medical history unknown Sister Alive and well Surgical History History of colonoscopy History of ankle surgery History of intestinal surgery History of transurethral resection of prostate Social History Household Members: Other Household Members Other:: Room mate Housing: House Housing Other:: [facility] Do you presently have visiting nurse or other home services: Yes Alcohol intake: current Alcohol intake frequency: holidays/special occasions only Alcohol type: beer Comment: 1:[address] Patient Tobacco Use Status: Former Tobacco user Tobacco use type: Cigarette Cigarette Packs Per Day: 0.5 Cigarettes Per Day: 10 Years Smoked: Many Smoked in Last 30 Days: No e-Cigarette/Vaping Use: Currently Using Second Hand Smoke Exposure: Yes Use of substances other than those prescribed or required for medical reasons: No Substance Use Type: Unknown Advance Directives: Yes Advance Directives on File: Yes Advance Directives Date on File: 01/14/24 Do you have a plan to hurt others: No Plan service: No Current occupational status: disabled Sexual orientation: Straight/Heterosexual Cognitive needs: Yes Hearing needs: No Vision needs: Yes Narrative: smoker Meds Allergies Allergy/AdvReac Type Severity Reaction Status Date / Time lithium ([place]) Allergy Severe Toxicity Verified 07/17/25 11:27 thiothixene Allergy Severe Swelling Verified 07/17/25 11:27 amoxicillin Allergy Mild Nose Bleed Verified 07/17/25 11:27 benztropine Allergy Unknown benztropine Verified 07/17/25 11:27 mesylate- unknown gabapentin (From NEURONTIN) Allergy Unknown Unknown Verified 07/17/25 11:27 fluphenazine (From Prolixin) Allergy Unknown Verified 07/17/25 11:27 metformin Allergy Anaphylaxis Unverified 08/12/25 21:44 barium sulfate (BARIUM AdvReac Intermediate Nausea and Verified 07/17/25 11:27 SULFATE) Vomiting haloperidol AdvReac Intermediate Muscle Verified 07/17/25 11:27 tension in legs diphenhydramine (From AdvReac Unknown urinary Verified 07/17/25 11:27 Benadryl) retention Home Medications ?Medication ?Instructions ?Recorded ?Confirmed ?Last Taken ?Type aspirin 81 mg tablet,delayed 81 mg PO DAILY 11/20/24 06/12/25 11/26/24 08:01 History release clozapine 25 mg tablet 25 mg PO BEDTIME 03/20/25 06/12/25 03/19/25 History insulin glargine 100 unit/mL (3 15 unit subcut QAM 05/27/25 06/12/25 Unknown History mL) subcutaneous pen (Lantus Solostar U-100 Insulin) famotidine 10 mg tablet 10 mg PO DAILY 06/12/25 06/12/25 Unknown History metoprolol tartrate 100 mg tablet 100 mg PO DAILY 06/12/25 06/12/25 Unknown History nitroglycerin 0.4 mg sublingual 0.4 mg sublingual Q5M PRN 06/12/25 06/12/25 Unknown History tablet trazodone 50 mg tablet 50 mg PO BEDTIME PRN 06/12/25 06/12/25 Unknown History Physical Exam Vital Signs and Narrative: Vital Signs: Last Vital Signs Temp 97.7 F 08/12/25 21:41 Pulse 90 08/12/25 22:52 Resp 20 08/12/25 22:52 BP 126/80 08/12/25 23:53 Pulse Ox 95 08/12/25 22:32 O2 Del Method Oxymask 08/12/25 22:32 O2 Flow Rate 4 08/12/25 22:32 BMI result Body Mass Index 37.6 General: Alert and oriented to person and time, no acute distress Resp: diminshed throughout, no wheezing or crackles CVS: S1, S2, RRR GI: +BS, NT, no distention Skin: Warm, dry Neuro: Cranial nerves II-XII grossly intact bilaterally. Motor grossly intact bilaterally Extremities: No pitting edema Psych: confused, responses unclear and do not make sense Results Labs 08/12/25 21:52 08/12/25 21:52 Labs: Laboratory Results - last 24 hr 08/12/25 08/12/25 21:52 22:42 MCV 86.4 MCH 26.2 L MCHC 30.4 L RDW 19.6 H Plt Count 147 L MPV 12.0 Immature Gran % (Auto) 0.7 H Neut % (Auto) 84.2 H Lymph % (Auto) 7.5 L [place] % (Auto) 6.4 Eos % (Auto) 0.7 Baso % (Auto) 0.5 Lymph # (Auto) 0.7 L [place] # (Auto) 0.6 Eos # (Auto) 0.1 Baso # (Auto) 0.0 Abs Immat Gran (auto) 0.06 H Absolute Neuts (auto) 7.5 Absolute Nucleated RBC 0.000 Nucleated RBC % (auto) 0.0 Anion Gap 15 Estim Creat Clear Calc 59.6 Estimated GFR 45 POC Glucose 374 H* Random Glucose 428 H* Calcium 8.8 Total Bilirubin 0.5 AST 41 H ALT 57 H Alkaline Phosphatase 113 Troponin I High Sens 83.1 H NT-Pro-B Natriuret Pep 1408.2 H Total Protein 6.6 Albumin 4.0 COVID-19 (DARRIUS) Negative COVID-19 Clin Com See Note Influenza Type A (ELI) Negative Influenza Type B (ELI) Negative Influenza A & B Note See Note Assessment and Plan (1) Acute and chronic respiratory failure with hypoxia: Status: Acute (2) Acute exacerbation of CHF (congestive heart failure): Status: Acute (3) Elevated troponin: Status: Acute (4) Class 3 obesity: Status: Acute Plan Patient is a 60-year-old male with a past medical history significant for smoking, severe COPD on 4 L via NC at baseline, type 2 diabetes, hypertension, CAD, history VT, HFpEEF, HOCM, HLD, prolonged QT, JUDY and schizophrenia, who presented to the ED from the retirement due to shortness of breath and hypoxia. acute on chronic respiratory failure with hypoxia secondary to CHF exacerbation - lasix 60mg in ED, continue 40mg IV daily - Is and Os - titrate oxygen as needed - chest xray with possible superimposed infectious or inflammatory process. no leukocytosis or fever - check procalcitonin elevated troponin - likely due to hypoxia - EKG without changes - repeat troponin now chronic anemia, stable - monitor CBC thrombocytopenia, stable at baseline - monitor CBC tachycardia, likely due to duonebs x2 severe COPD, no acute exacerbation - duonebs PRN - hold on futher steroids as pt is not wheezing - continue home meds T2DM, hyperglycemia - sliding scale insulin - diabetic diet - await records from retirement for lantus dose HTN - normotensive, hold home meds CAD/hx VT - continue home meds prolonged QT - avoid QT prolonging agents schizophrenia - continue home meds med rec pending awaiting records from retirement presumed full code VTE prophy: heparin Pt with acute chronic hypoxic respiratory failure secondary to acute CHF exacerbation, requiring admission for at least 2 midnight stay for IV diuresis and monitoring. Quality Stroke Does the patient have a stroke diagnosis?: No VTE Prior VTE?: No VTE Risk Level:: Medical - moderate - high VTE Device Contraindication: Treatment Not Indicated VTE Drug Contraindication: N/A - Med Ordered
[2025-08-12 23:58] LABS: Glucose, Whole Blood 243 mg/dL (60-115)
[2025-08-13] VITALS (7 sets, daily range): BP systolic 121–154; BP diastolic 67–84; PULSE 80–93; RESP 18–20; TEMP 36–36.7; O2SAT 95–98; BMI 37.4
[2025-08-13 00:54] LABS: Troponin-I High Sensitivity 88.6 ng/L (<3.5-35.0)
[2025-08-13 01:29] LABS: Procalcitonin 0.18 ng/mL
[2025-08-13] MEDS: Flu Vacc TS2025-26(6mo up)/PF 0.5 ML SYRINGE IM (05:07)
[2025-08-13 07:23] LABS: Glucose, Whole Blood 365 mg/dL (60-115)
[2025-08-13] MEDS: 0.9 % Sodium Chloride Flush 3 ML SYRINGE IVFLUSH ×3 (08:22→21:00)
[2025-08-13 09:06] LABS: Hematocrit 33.1 % (42.0-52.0); Hemoglobin 10.1 g/dl (14.0-18.0); Imm Gran Abs Auto 0.06 X10*3/uL (0.00-0.03); Imm Gran Pct Auto 0.6 % (0.0-0.4); Lymphocytes Absolute Auto 0.3 X10*3/uL (1.2-4.9); MANUAL DIFF FLAG SCAN; Mean Corpuscular HGB Conc 30.5 g/dl (31.0-36.0); Mean Corpuscular Hemoglobin 25.9 pg (27.0-33.0); Mean Corpuscular Volume 84.9 fL (80.0-98.0); NRBC Abs Auto 0.000 X10*3/uL (0.0-0.012); NRBC Pct Auto 0.0 /100WBC (0.0-0.2); Platelet Count 143 X10*3/uL (160-400); Red Blood Count 3.90 X10*6/uL (4.60-5.80); SCAN SMEAR FLAG 1; White Blood Count 10.3 X10*3/uL (4.8-10.8)
[2025-08-13 09:20] LABS: Anion Gap 16 (12-20); Blood Urea Nitrogen 33 mg/dL (9-16); Calcium 8.9 mg/dL (8.4-10.2); Carbon Dioxide 27 mmol/L (22-29); Chloride 104 mmol/L (96-108); Creatinine Clr Calc Pharmacy 69.6; Estimated Glomerular Filt Rate 54; Potassium 4.6 mmol/L (3.3-5.1); Sodium 142 mmol/L (135-145)
--- NOTE | 2025-08-13 10:17 | PHA.MEDREC ---
Addendum entered by Karlene Denis RPh 08/13/25 10:55: reviewed by pharmacist. Also was able to confirm that hctz 12.5 mg and losartan have been discontinued even though there was recent pharmacy claim history Original Note: Pharmacy Consult ? Medication Reconciliation Pharmacy has completed the medication reconciliation. Utilized med list from pt nursing home. Pt taking Clozaril 100mg and Clozaril 25mg 3 tabs (75mg) together at bedtime and the facility confirmed pt last took them yesterday before coming into ED.
[2025-08-13] MEDS: Furosemide 40 MG/4 ML VIAL IVPUSH (11:02)
[2025-08-13 11:35] LABS: Glucose, Whole Blood 343 mg/dL (60-115)
--- NOTE | 2025-08-13 11:57 | HO.PM.IMPN ---
Subjective Subjective Date of Service: 08/13/25 Interval History: Patient seen and examined at bedside this morning, patient pleasantly demented, patient is glucose has been elevated, patient mentions that he wishes to have his medications restarted and not just on insulin. Review of Systems Review of Systems: Yes all other systems are reviewed and are negative Physical Exam Exam: Exam: General: AxOx2, No acute distress Head: AT/NC ENT: Moist mucous membranes Neck: supple CVS; RRR, S1 S2 normal Lungs: Clear bilateral breath sounds, no wheezes or crackles Abd: Soft non tender, non distended Ext: No edema and no calf tenderness MSK: moving all 4 limbs Skin: No cyanosis or edema Psych: Cooperative with exam Neurology: no focal deficit Vital Signs: Vital Signs: Last Vital Signs Temp 96.8 F 08/13/25 07:19 Pulse 80 08/13/25 07:19 Resp 18 08/13/25 07:19 BP 147/73 H 08/13/25 07:19 Pulse Ox 95 08/13/25 08:25 O2 Del Method Room Air 08/13/25 08:25 O2 Flow Rate 4 08/13/25 07:19 BMI result Body Mass Index 37.4 Objective Data Active Medications Acetaminophen (Acetaminophen 325 Mg Tablet) 975 mg PO Q6H PRN PRN Reason: Pain, Mild 1-3,fever,headache Albuterol/Ipratropium (Albuterol/Iprat 2.5/0.5mg 3 Ml Ampul.Neb) 3 ml INHALE Q4H PRN PRN Reason: Shortness of Breath/Wheezing Aspirin (Aspirin Enteric Coated 81 Mg Tablet.) 81 mg PO DAILY [facility] Atorvastatin Calcium (Atorvastatin Calcium 20 Mg Tablet) 20 mg PO BEDTIME [facility] Calcium Carbonate (Calcium Carbonate 750 Mg Tab.Chew) 750 mg PO Q4H PRN PRN Reason: Heartburn Clozapine (Clozapine 100 Mg Tablet) 100 mg PO BEDTIME [facility] Clozapine (Clozapine 25 Mg Tablet) 75 mg PO BEDTIME [facility] Dextrose (Dextrose 50 % 25 Gm/50 Ml Syringe) 25 gm IVPUSH Q15M PRN; Protocol PRN Reason: per Hypoglycemia Standing Ord. Furosemide (Furosemide 40 Mg/4 Ml Vial) 40 mg IVPUSH DAILY [facility]; Protocol Last Admin: 08/13/25 11:02 Dose: 40 mg Documented By: ASTON Glucose (Glucose Gel 15 Gm Gel..Gram.) 15 gm PO Q15M PRN; Protocol PRN Reason: per Hypoglycemia Standing Ord. Heparin Sodium (Porcine) (Heparin Sodium,Porcine 5,000 Unit/Ml Vial) 5,000 unit SUBCUT Q8H [facility] Last Admin: 08/13/25 08:20 Dose: 5,000 unit Documented By: ASTON Insulin Glargine (Insulin Glargine,Hum.Rec.Anlog 100 Unit/Ml 10 Ml Vial) 15 unit SUBCUT BEDTIME [facility] Insulin Human Lispro (Insulin Lispro 100 Unit/Ml 3 Ml Vial) 0 unit SUBCUT QIDACHS [facility]; Protocol Last Admin: 08/13/25 08:20 Dose: 10 unit Documented By: ASTON Magnesium Hydroxide (Milk Of Magnesia 30 Ml Oral.Susp) 30 ml PO DAILY PRN PRN Reason: Constipation Melatonin (Melatonin 3 Mg Tablet) 6 mg PO BEDTIME PRN PRN Reason: Insomnia Nicotine Polacrilex (Nicotine Polacrilex Lozenge 4 Mg Lozenge) 4 mg BUCCAL Q2H PRN PRN Reason: Smoking Cessation Non-Formulary Medication (Linagliptin) 5 mg PO DAILY [facility] Non-Formulary Medication (Lurasidone [Latuda]) 60 mg PO BEDTIME [facility] Omeprazole (Omeprazole 40 Mg Capsule.Dr) 40 mg PO BID@0630,1630 [facility] Polyethylene Glycol (Polyethylene Glycol 3350 17 Gm Powd.Pack) 17 gm PO DAILY PRN PRN Reason: Constipation Senna/Docusate Sodium (Sennosides/Docusate Sodium Tablet) 2 tab PO DAILY [facility] Sodium Chloride (0.9 % Sodium Chloride Flush 3 Ml Syringe) 3 ml IVFLUSH QSHIFT [facility] Last Admin: 08/13/25 08:22 Dose: 3 ml Documented By: ASTON Trazodone HCl (Trazodone Hcl 100 Mg Tablet) 100 mg PO BEDTIME [facility] Vitamin D (Cholecalciferol (Vitamin D3) 25 Mcg Tablet) 25 mcg PO DAILY [facility] Labs 08/13/25 08:20 08/13/25 08:20 Labs: Laboratory Results - last 24 hr 08/12/25 08/12/25 08/12/25 21:52 22:42 23:54 MCV 86.4 MCH 26.2 L MCHC 30.4 L RDW 19.6 H Plt Count 147 L MPV 12.0 Immature Gran % (Auto) 0.7 H Neut % (Auto) 84.2 H Lymph % (Auto) 7.5 L [place] % (Auto) 6.4 Eos % (Auto) 0.7 Baso % (Auto) 0.5 Lymph # (Auto) 0.7 L [place] # (Auto) 0.6 Eos # (Auto) 0.1 Baso # (Auto) 0.0 Abs Immat Gran (auto) 0.06 H Absolute Neuts (auto) 7.5 Absolute Nucleated RBC 0.000 Nucleated RBC % (auto) 0.0 Smear Tech's Comments Anion Gap 15 Estim Creat Clear Calc 59.6 Estimated GFR 45 POC Glucose 374 H* 243 H Random Glucose 428 H* Calcium 8.8 Total Bilirubin 0.5 AST 41 H ALT 57 H Alkaline Phosphatase 113 Troponin I High Sens 83.1 H NT-Pro-B Natriuret Pep 1408.2 H Total Protein 6.6 Albumin 4.0 Procalcitonin 0.18 COVID-19 (DARRIUS) Negative COVID-19 Clin Com See Note Influenza Type A (ELI) Negative Influenza Type B (ELI) Negative Influenza A & B Note See Note 08/13/25 08/13/25 08/13/25 00:29 07:16 08:20 MCV 84.9 MCH 25.9 L MCHC 30.5 L RDW 19.8 H Plt Count 143 L MPV 12.7 H Immature Gran % (Auto) 0.6 H Neut % (Auto) 93.7 H Lymph % (Auto) 3.2 L [place] % (Auto) 2.3 Eos % (Auto) 0.0 Baso % (Auto) 0.2 Lymph # (Auto) 0.3 L [place] # (Auto) 0.2 Eos # (Auto) 0.0 Baso # (Auto) 0.0 Abs Immat Gran (auto) 0.06 H Absolute Neuts (auto) 9.6 H Absolute Nucleated RBC 0.000 Nucleated RBC % (auto) 0.0 Smear Tech's Comments VERIFIED Anion Gap 16 Estim Creat Clear Calc 69.6 Estimated GFR 54 POC Glucose 365 H* Random Glucose 394 H* Calcium 8.9 Total Bilirubin AST ALT Alkaline Phosphatase Troponin I High Sens 88.6 H NT-Pro-B Natriuret Pep Total Protein Albumin Procalcitonin COVID-19 ([facility]ARRIUS) COVID-19 Clin Com Influenza Type A (ELI) Influenza Type B (ELI) Influenza A & B Note 08/13/25 11:28 MCV MCH MCHC RDW Plt Count MPV Immature Gran % (Auto) Neut % (Auto) Lymph % (Auto) [place] % (Auto) Eos % (Auto) Baso % (Auto) Lymph # (Auto) [place] # (Auto) Eos # (Auto) Baso # (Auto) Abs Immat Gran (auto) Absolute Neuts (auto) Absolute Nucleated RBC Nucleated RBC % (auto) Smear Tech's Comments Anion Gap Estim Creat Clear Calc Estimated GFR POC Glucose 343 H Random Glucose Calcium Total Bilirubin AST ALT Alkaline Phosphatase Troponin I High Sens NT-Pro-B Natriuret Pep Total Protein Albumin Procalcitonin COVID-19 ([facility]ARRIUS) COVID-19 Clin Com Influenza Type A (ELI) Influenza Type B (ELI) Influenza A & B Note Assessment and Plan (1) Schizophrenia: Status: Acute (2) Chronic HFrEF (heart failure with reduced ejection fraction): Status: Acute (3) Acute exacerbation of CHF (congestive heart failure): Status: Acute (4) Pancytopenia: Status: Chronic (5) Acute respiratory failure with hypoxia: Status: Acute Plan Patient is a 60-year-old male with a past medical history significant for smoking, severe COPD on 4 L via NC at baseline, type 2 diabetes, hypertension, CAD, history ID, HFpEEF, HOCM, HLD, prolonged QT, JUDY and schizophrenia, who [facility] to shortness of breath and hypoxia. acute on chronic respiratory failure with hypoxia secondary to CHF exacerbation, improving CHF exacerbation -Chest x ray reviewed - s/p lasix 60mg in ED, will increase lasix to 60mg IV daily - Is and Os - titrate oxygen as needed elevated troponin likely demand in setting of hypoxia - likely due to hypoxia - EKG without changes COPD, no acute exacerbation - duonebs PRN - continue home meds T2DM, hyperglycemia - sliding scale insulin - diabetic diet - will initiate Long acting 15 units qhs and linagliptin 5mg HTN -will restart home medications CAD/hx ID - continue home meds schizophrenia - continue home meds Pancytopenia, chronic, stable -continue to monitor, transfuse for Hb less than 7 Code Status: Full Code VTE prophy: heparin Total time managing care of this patient today: 55 minutes. Quality Stroke Does the patient have a stroke diagnosis?: No VTE Prior VTE?: No VTE Risk Level:: Medical - moderate - high VTE Device Contraindication: Treatment Not Indicated VTE Drug Contraindication: N/A - Med Ordered
--- NOTE | 2025-08-13 15:09 | MHC.CM.PN ---
IMM 08/13/25 DX HF BIBA from A [facility]. [facility] OTHER SIDE OF DUPLEX. He states that he is independent with all functional mobility. [facility] home services are active with the patient. a return referral has been sent. He attends an adult day program [facility] in [place]. He uses home o2 @ NOC only 2L via [place], [employer] provider. DP resume services that are already in place. Transport provided by [facility] staff vs [facility] shuttle
[2025-08-13 16:31] LABS: Glucose, Whole Blood 246 mg/dL (60-115)
[2025-08-13 20:09] LABS: Glucose, Whole Blood 239 mg/dL (60-115)
[2025-08-13] MEDS: Insulin Glargine,Hum.rec.anlog 100 UNIT/ML 10 ML VIAL 15 UNIT SUBCUT (20:48)
[2025-08-14 04:00] VITALS: BP 134/71; PULSE 84; RESP 18; TEMP 36.2; O2SAT 97
[2025-08-14 05:49] LABS: MANUAL DIFF FLAG NO
[2025-08-14 06:03] LABS: Lymphocytes Absolute Auto 0.8 X10*3/uL (1.2-4.9); NRBC Abs Auto 0.000 X10*3/uL (0.0-0.012); NRBC Pct Auto 0.0 /100WBC (0.0-0.2); PLT ABN DIST 1; SCAN SMEAR FLAG 1
[2025-08-14 06:05] LABS: Hematocrit 32.6 % (42.0-52.0); Hemoglobin 9.8 g/dl (14.0-18.0); Imm Gran Abs Auto 0.03 X10*3/uL (0.00-0.03); Imm Gran Pct Auto 0.4 % (0.0-0.4); Mean Corpuscular HGB Conc 30.1 g/dl (31.0-36.0); Mean Corpuscular Hemoglobin 26.1 pg (27.0-33.0); Mean Corpuscular Volume 86.7 fL (80.0-98.0); Platelet Count 122 X10*3/uL (160-400); Red Blood Count 3.76 X10*6/uL (4.60-5.80); White Blood Count 7.8 X10*3/uL (4.8-10.8)
[2025-08-14 06:12] LABS: Anion Gap 12 (12-20); Blood Urea Nitrogen 35 mg/dL (9-16); Calcium 8.6 mg/dL (8.4-10.2); Carbon Dioxide 31 mmol/L (22-29); Chloride 103 mmol/L (96-108); Creatinine Clr Calc Pharmacy 72.2; Estimated Glomerular Filt Rate 56; Potassium 4.2 mmol/L (3.3-5.1); Sodium 142 mmol/L (135-145)
[2025-08-14 07:50] VITALS: BP 156/73; PULSE 88; RESP 18; TEMP 36.2; O2SAT 100
[2025-08-14 08:04] LABS: Glucose, Whole Blood 247 mg/dL (60-115)
[2025-08-14] MEDS: Furosemide 40 MG/4 ML VIAL 60 MG IVPUSH (08:20)
[2025-08-14] MEDS: Aspirin Enteric Coated 81 MG TABLET.DR PO (08:21)
[2025-08-14] MEDS: 0.9 % Sodium Chloride Flush 3 ML SYRINGE IVFLUSH ×2 (08:21→16:53)
[2025-08-14 08:48] VITALS: O2SAT 94
[2025-08-14 11:43] LABS: Glucose, Whole Blood 272 mg/dL (60-115)
--- NOTE | 2025-08-14 12:52 | HO.PM.IMPN ---
Subjective Subjective Date of Service: 08/14/25 Interval History: Patient seen examined at bedside this morning, pleasantly confused at this time, mentions that he uses oxygen usually at nighttime, at this time still requires oxygen. Blood sugars have been better controlled. Review of Systems Review of Systems: Yes all other systems are reviewed and are negative Physical Exam Exam: Exam: General: AxOx3, No acute distress Head: AT/NC ENT: Moist mucous membranes Neck: supple CVS; RRR, S1 S2 normal Lungs: Clear bilateral breath sounds, no wheezes or crackles Abd: Soft non tender, non distended Ext: No edema and no calf tenderness MSK: moving all 4 limbs Skin: No cyanosis or edema Psych: Cooperative with exam Neurology: no focal deficit Vital Signs: Vital Signs: Last Vital Signs Temp 97.1 F 08/14/25 07:50 Pulse 88 08/14/25 07:50 Resp 18 08/14/25 07:50 BP 156/73 H 08/14/25 07:50 Pulse Ox 94 08/14/25 08:48 O2 Del Method Nasal Cannula 08/14/25 08:48 O2 Flow Rate 2 08/14/25 08:48 BMI result Body Mass Index 37.4 Objective Data Active Medications Acetaminophen (Acetaminophen 325 Mg Tablet) 975 mg PO Q6H PRN PRN Reason: Pain, Mild 1-3,fever,headache Albuterol/Ipratropium (Albuterol/Iprat 2.5/0.5mg 3 Ml Ampul.Neb) 3 ml INHALE Q4H PRN PRN Reason: Shortness of Breath/Wheezing Aspirin (Aspirin Enteric Coated 81 Mg Tablet.) 81 mg PO DAILY [facility] Last Admin: 08/14/25 08:21 Dose: 81 mg Documented By: ASTON Atorvastatin Calcium (Atorvastatin Calcium 20 Mg Tablet) 20 mg PO BEDTIME [facility] Last Admin: 08/13/25 20:53 Dose: 20 mg Documented By: ARNOLD Calcium Carbonate (Calcium Carbonate 750 Mg Tab.Chew) 750 mg PO Q4H PRN PRN Reason: Heartburn Clozapine (Clozapine 100 Mg Tablet) 100 mg PO BEDTIME [facility] Last Admin: 08/13/25 20:51 Dose: 100 mg Documented By: ARNOLD Clozapine (Clozapine 25 Mg Tablet) 75 mg PO BEDTIME [facility] Last Admin: 08/13/25 20:51 Dose: 75 mg Documented By: ARNOLD Dextrose (Dextrose 50 % 25 Gm/50 Ml Syringe) 25 gm IVPUSH Q15M PRN; Protocol PRN Reason: per Hypoglycemia Standing Ord. Docusate Sodium (Docusate Sodium 100 Mg Capsule) 100 mg PO BEDTIME PRN PRN Reason: Constipation Last Admin: 08/14/25 00:41 Dose: 100 mg Documented By: ARNOLD Furosemide (Furosemide 40 Mg/4 Ml Vial) 40 mg IVPUSH BID@0900,1800 [facility]; Protocol Glucose (Glucose Gel 15 Gm Gel..Gram.) 15 gm PO Q15M PRN; Protocol PRN Reason: per Hypoglycemia Standing Ord. Heparin Sodium (Porcine) (Heparin Sodium,Porcine 5,000 Unit/Ml Vial) 5,000 unit SUBCUT Q8H [facility] Last Admin: 08/14/25 08:47 Dose: 5,000 unit Documented By: ASTON Insulin Glargine (Insulin Glargine,Hum.Rec.Anlog 100 Unit/Ml 10 Ml Vial) 15 unit SUBCUT BEDTIME [facility] Last Admin: 08/13/25 20:48 Dose: 15 unit Documented By: ARNOLD Insulin Human Lispro (Insulin Lispro 100 Unit/Ml 3 Ml Vial) 0 unit SUBCUT QIDACHS [facility]; Protocol Last Admin: 08/14/25 11:52 Dose: 6 unit Documented By: ASTON Lurasidone HCl (Lurasidone Hcl 20 Mg Tablet) 60 mg PO BEDTIME [facility] Last Admin: 08/13/25 20:51 Dose: 60 mg Documented By: ARNOLD Magnesium Hydroxide (Milk Of Magnesia 30 Ml Oral.Susp) 30 ml PO DAILY PRN PRN Reason: Constipation Melatonin (Melatonin 3 Mg Tablet) 6 mg PO BEDTIME PRN PRN Reason: Insomnia Nicotine Polacrilex (Nicotine Polacrilex Lozenge 4 Mg Lozenge) 4 mg BUCCAL Q2H PRN PRN Reason: Smoking Cessation Omeprazole (Omeprazole 40 Mg Capsule.) 40 mg PO BID@0630,1630 [facility] Last Admin: 08/14/25 06:12 Dose: 40 mg Documented By: ARNOLD Polyethylene Glycol (Polyethylene Glycol 3350 17 Gm Powd.Pack) 17 gm PO DAILY PRN PRN Reason: Constipation Senna/Docusate Sodium (Sennosides/Docusate Sodium Tablet) 2 tab PO DAILY [facility] Last Admin: 08/14/25 08:21 Dose: 2 tab Documented By: ASTON Sodium Chloride (0.9 % Sodium Chloride Flush 3 Ml Syringe) 3 ml IVFLUSH QSHIFT [facility] Last Admin: 08/14/25 08:21 Dose: 3 ml Documented By: ASTON Trazodone HCl (Trazodone Hcl 100 Mg Tablet) 100 mg PO BEDTIME [facility] Last Admin: 08/13/25 20:51 Dose: 100 mg Documented By: ARNOLD Vitamin D (Cholecalciferol (Vitamin D3) 25 Mcg Tablet) 25 mcg PO DAILY [facility] Last Admin: 08/14/25 08:21 Dose: 25 mcg Documented By: ASTON Labs 08/14/25 05:42 08/14/25 05:42 Labs: Laboratory Results - last 24 hr 08/13/25 08/13/25 08/14/25 16:27 19:38 05:42 MCV 86.7 MCH 26.1 L MCHC 30.1 L RDW 19.5 H Plt Count 122 L MPV 11.6 Immature Gran % (Auto) 0.4 Neut % (Auto) 82.1 H Lymph % (Auto) 9.6 L [place] % (Auto) 6.9 Eos % (Auto) 0.6 Baso % (Auto) 0.4 Lymph # (Auto) 0.8 L [place] # (Auto) 0.5 Eos # (Auto) 0.1 Baso # (Auto) 0.0 Abs Immat Gran (auto) 0.03 Absolute Neuts (auto) 6.4 Absolute Nucleated RBC 0.000 Nucleated RBC % (auto) 0.0 Anion Gap 12 Estim Creat Clear Calc 72.2 Estimated GFR 56 POC Glucose 246 H 239 H Random Glucose 276 H Calcium 8.6 08/14/25 08/14/25 07:48 11:36 MCV MCH MCHC RDW Plt Count MPV Immature Gran % (Auto) Neut % (Auto) Lymph % (Auto) [place] % (Auto) Eos % (Auto) Baso % (Auto) Lymph # (Auto) [place] # (Auto) Eos # (Auto) Baso # (Auto) Abs Immat Gran (auto) Absolute Neuts (auto) Absolute Nucleated RBC Nucleated RBC % (auto) Anion Gap Estim Creat Clear Calc Estimated GFR POC Glucose 247 H 272 H Random Glucose Calcium Assessment and Plan (1) Acute exacerbation of CHF (congestive heart failure): Status: Acute (2) Schizophrenia: Status: Acute (3) Class 3 obesity: Status: Acute (4) Pancytopenia: Status: Chronic (5) Acute and chronic respiratory failure with hypoxia: Status: Acute Plan Patient is a 60-year-old male with a past medical history significant for smoking, severe COPD on 4 L via [place] at baseline, type 2 diabetes, hypertension, CAD, history MT, HFpEEF, HOCM, HLD, prolonged QT, JUDY and schizophrenia, who [facility] from [facility] due to shortness of breath and hypoxia. On admission BNP elevated, patient started on IV Lasix, recently increased to Lasix 40 mg b.i.d.. Acute on chronic respiratory failure with hypoxia secondary to CHF exacerbation, improving HFrEF CHF exacerbation -Chest x ray reviewed - s/p lasix 60mg in ED, will increase lasix to 40mg IV BID, at this time GDMT on hold, will continue diuresing, will restart once able - Is and Os - titrate oxygen as needed elevated troponin likely demand in setting of hypoxia - likely due to hypoxia - EKG with no changes COPD, no acute exacerbation - duonebs PRN - continue home meds T2DM - sliding scale insulin - diabetic diet - continue Long acting 15 units qhs HTN -continue home medications, will give PRN meds CAD/hx MT - continue home meds schizophrenia - continue home meds Pancytopenia, chronic, stable -continue to monitor, transfuse for Hb less than 7 Obesity likely secondary to increase calories continue w/ diet Code Status: Full Code VTE prophy: heparin Disposition: All questions and concerns with the patient were answered to satisfaction. All pertinent clinical documents, images and labs were reviewed. DISCLAIMER: This document was created using voice recognition software. Any mistakes in the prescription are unintentional. An attempt was made to focus for accuracy, but to expedite availability, some errors may persist. Please contact with any need for correction or further clarification Total time managing care of this patient today: 55 minutes. Quality Stroke Does the patient have a stroke diagnosis?: No VTE Prior VTE?: No VTE Risk Level:: Medical - moderate - high VTE Device Contraindication: Treatment Not Indicated VTE Drug Contraindication: N/A - Med Ordered
--- NOTE | 2025-08-14 14:03 | MHC.CM.PN ---
PER MD ROUNDS, PT NOT MEDICALLY CLEARED, REQUIRING DIURESIS AND WEANING OF O2 DCP: RETURN HOME WITH [facility] SUPPORTS, [facility] AND RESUMPTION OF DAY PROGRAM SHUTTLE VS [facility] STAFF TO TRANSPORT
[2025-08-14 15:20] VITALS: BP 135/69; PULSE 84; RESP 18; TEMP 36.3; O2SAT 93
[2025-08-14 16:27] LABS: Glucose, Whole Blood 166 mg/dL (60-115)
[2025-08-14] MEDS: Furosemide 40 MG/4 ML VIAL IVPUSH (16:53)
[2025-08-14 19:46] LABS: Glucose, Whole Blood 194 mg/dL (60-115)
[2025-08-14 20:00] VITALS: BP 138/78; PULSE 83; RESP 18; TEMP 36.2; O2SAT 94
[2025-08-14] MEDS: Insulin Glargine,Hum.rec.anlog 100 UNIT/ML 10 ML VIAL 15 UNIT SUBCUT (20:10)
[2025-08-15] VITALS (7 sets, daily range): BP systolic 109–153; BP diastolic 66–88; PULSE 81–101; RESP 16–20; TEMP 36.1–36.6; O2SAT 95–97
[2025-08-15] MEDS: 0.9 % Sodium Chloride Flush 3 ML SYRINGE IVFLUSH ×4 (00:08→20:58)
[2025-08-15 07:21] LABS: Glucose, Whole Blood 226 mg/dL (60-115)
[2025-08-15 07:23] LABS: MANUAL DIFF FLAG NO
[2025-08-15 07:34] LABS: Hematocrit 36.8 % (42.0-52.0); Hemoglobin 11.1 g/dl (14.0-18.0); Imm Gran Abs Auto 0.03 X10*3/uL (0.00-0.03); Imm Gran Pct Auto 0.5 % (0.0-0.4); Lymphocytes Absolute Auto 0.8 X10*3/uL (1.2-4.9); Mean Corpuscular HGB Conc 30.2 g/dl (31.0-36.0); Mean Corpuscular Hemoglobin 25.8 pg (27.0-33.0); Mean Corpuscular Volume 85.6 fL (80.0-98.0); NRBC Abs Auto 0.000 X10*3/uL (0.0-0.012); NRBC Pct Auto 0.0 /100WBC (0.0-0.2); Platelet Count 129 X10*3/uL (160-400); Red Blood Count 4.30 X10*6/uL (4.60-5.80); White Blood Count 5.6 X10*3/uL (4.8-10.8)
[2025-08-15 08:04] LABS: Anion Gap 16 (12-20); Blood Urea Nitrogen 31 mg/dL (9-16); Calcium 9.0 mg/dL (8.4-10.2); Carbon Dioxide 28 mmol/L (22-29); Chloride 105 mmol/L (96-108); Creatinine Clr Calc Pharmacy 67.1; Estimated Glomerular Filt Rate 52; Potassium 3.7 mmol/L (3.3-5.1); Sodium 145 mmol/L (135-145)
[2025-08-15] MEDS: Milk of Magnesia 30 ML ORAL.SUSP PO (08:44)
[2025-08-15] MEDS: Furosemide 40 MG/4 ML VIAL IVPUSH ×2 (08:45→17:48)
[2025-08-15] MEDS: Aspirin Enteric Coated 81 MG TABLET.DR PO (08:45)
--- NOTE | 2025-08-15 10:56 | HO.PM.IMPN ---
Subjective Subjective Date of Service: 08/15/25 Interval History: Patient seen examined at bedside this morning, patient states that his breathing has improved, this time with intermittent use of oxygen during the day. Continues on IV diuretics. No concerns voiced by nursing staff. Review of Systems Review of Systems: Yes all other systems are reviewed and are negative Physical Exam Exam: Exam: General: AxOx3, No acute distress Head: AT/NC ENT: Moist mucous membranes Neck: supple CVS; RRR, S1 S2 normal Lungs: Clear bilateral breath sounds, no wheezes or crackles Abd: Soft non tender, non distended Ext: No edema and no calf tenderness MSK: moving all 4 limbs Skin: No cyanosis or edema Psych: Cooperative with exam Neurology: no focal deficit Vital Signs: Vital Signs: Last Vital Signs Temp 98 F 08/15/25 06:54 Pulse 90 08/15/25 08:29 Resp 18 08/15/25 06:54 BP 139/66 08/15/25 08:29 Pulse Ox 96 08/15/25 06:54 O2 Del Method Nasal Cannula 08/15/25 06:54 O2 Flow Rate 2 08/15/25 06:54 BMI result Body Mass Index 37.4 Objective Data Active Medications Acetaminophen (Acetaminophen 325 Mg Tablet) 975 mg PO Q6H PRN PRN Reason: Pain, Mild 1-3,fever,headache Albuterol/Ipratropium (Albuterol/Iprat 2.5/0.5mg 3 Ml Ampul.Neb) 3 ml INHALE Q4H PRN PRN Reason: Shortness of Breath/Wheezing Aspirin (Aspirin Enteric Coated 81 Mg Tablet.) 81 mg PO DAILY [facility] Last Admin: 08/15/25 08:45 Dose: 81 mg Documented By: MARCO A Atorvastatin Calcium (Atorvastatin Calcium 20 Mg Tablet) 20 mg PO BEDTIME OZZY Last Admin: 08/14/25 20:11 Dose: 20 mg Documented By: AUGIE Calcium Carbonate (Calcium Carbonate 750 Mg Tab.Chew) 750 mg PO Q4H PRN PRN Reason: Heartburn Clozapine (Clozapine 100 Mg Tablet) 100 mg PO BEDTIME [facility] Last Admin: 08/14/25 20:11 Dose: 100 mg Documented By: AUGIE Clozapine (Clozapine 25 Mg Tablet) 75 mg PO BEDTIME [facility] Last Admin: 08/14/25 20:11 Dose: 75 mg Documented By: AUGIE Dextrose (Dextrose 50 % 25 Gm/50 Ml Syringe) 25 gm IVPUSH Q15M PRN; Protocol PRN Reason: per Hypoglycemia Standing Ord. Docusate Sodium (Docusate Sodium 100 Mg Capsule) 100 mg PO BEDTIME PRN PRN Reason: Constipation Last Admin: 08/15/25 00:07 Dose: 100 mg Documented By: AUGIE Furosemide (Furosemide 40 Mg/4 Ml Vial) 40 mg IVPUSH BID@0900,1800 [facility]; Protocol Last Admin: 08/15/25 08:45 Dose: 40 mg Documented By: MARCO A Glucose (Glucose Gel 15 Gm Gel..Gram.) 15 gm PO Q15M PRN; Protocol PRN Reason: per Hypoglycemia Standing Ord. Heparin Sodium (Porcine) (Heparin Sodium,Porcine 5,000 Unit/Ml Vial) 5,000 unit SUBCUT Q8H [facility] Last Admin: 08/15/25 08:46 Dose: 5,000 unit Documented By: MARCO A Insulin Glargine (Insulin Glargine,Hum.Rec.Anlog 100 Unit/Ml 10 Ml Vial) 15 unit SUBCUT BEDTIME [facility] Last Admin: 08/14/25 20:10 Dose: 15 unit Documented By: AUGIE Insulin Human Lispro (Insulin Lispro 100 Unit/Ml 3 Ml Vial) 0 unit SUBCUT QIDACHS [facility]; Protocol Last Admin: 08/15/25 07:54 Dose: 4 unit Documented By: MARCO A Lurasidone HCl (Lurasidone Hcl 20 Mg Tablet) 60 mg PO BEDTIME [facility] Last Admin: 08/14/25 20:11 Dose: 60 mg Documented By: AUGIE Magnesium Hydroxide (Milk Of Magnesia 30 Ml Oral.Susp) 30 ml PO DAILY PRN PRN Reason: Constipation Last Admin: 08/15/25 08:44 Dose: 30 ml Documented By: MARCO A Melatonin (Melatonin 3 Mg Tablet) 6 mg PO BEDTIME PRN PRN Reason: Insomnia Nicotine Polacrilex (Nicotine Polacrilex Lozenge 4 Mg Lozenge) 4 mg BUCCAL Q2H PRN PRN Reason: Smoking Cessation Omeprazole (Omeprazole 40 Mg Capsule.Dr) 40 mg PO BID@0630,1630 [facility] Last Admin: 08/15/25 06:17 Dose: 40 mg Documented By: AUGIE Polyethylene Glycol (Polyethylene Glycol 3350 17 Gm Powd.Pack) 17 gm PO DAILY PRN PRN Reason: Constipation Senna/Docusate Sodium (Sennosides/Docusate Sodium Tablet) 2 tab PO DAILY [facility] Last Admin: 08/15/25 08:46 Dose: Not Given Documented By: MARCO A Non-Admin Reason: Patient Refused Sodium Chloride (0.9 % Sodium Chloride Flush 3 Ml Syringe) 3 ml IVFLUSH QSHIFT [facility] Last Admin: 08/15/25 07:55 Dose: 3 ml Documented By: MARCO A Trazodone HCl (Trazodone Hcl 100 Mg Tablet) 100 mg PO BEDTIME [facility] Last Admin: 08/14/25 20:11 Dose: 100 mg Documented By: AUGIE Vitamin D (Cholecalciferol (Vitamin D3) 25 Mcg Tablet) 25 mcg PO DAILY [facility] Last Admin: 08/15/25 08:45 Dose: 25 mcg Documented By: MARCO A Labs 08/15/25 06:34 08/15/25 06:34 Labs: Laboratory Results - last 24 hr 08/14/25 08/14/25 08/14/25 11:36 16:18 19:42 MCV MCH MCHC RDW Plt Count MPV Immature Gran % (Auto) Neut % (Auto) Lymph % (Auto) [place] % (Auto) Eos % (Auto) Baso % (Auto) Lymph # (Auto) [place] # (Auto) Eos # (Auto) Baso # (Auto) Abs Immat Gran (auto) Absolute Neuts (auto) Absolute Nucleated RBC Nucleated RBC % (auto) Anion Gap Estim Creat Clear Calc Estimated GFR POC Glucose 272 H 166 H 194 H Random Glucose Calcium 08/15/25 08/15/25 06:34 06:56 MCV 85.6 MCH 25.8 L MCHC 30.2 L RDW 19.2 H Plt Count 129 L MPV 11.6 Immature Gran % (Auto) 0.5 H Neut % (Auto) 74.8 H Lymph % (Auto) 13.7 L [place] % (Auto) 9.4 Eos % (Auto) 1.1 Baso % (Auto) 0.5 Lymph # (Auto) 0.8 L [place] # (Auto) 0.5 Eos # (Auto) 0.1 Baso # (Auto) 0.0 Abs Immat Gran (auto) 0.03 Absolute Neuts (auto) 4.2 Absolute Nucleated RBC 0.000 Nucleated RBC % (auto) 0.0 Anion Gap 16 Estim Creat Clear Calc 67.1 Estimated GFR 52 POC Glucose 226 H Random Glucose 216 H Calcium 9.0 Assessment and Plan (1) CHF (congestive heart failure): Status: Acute (2) Schizophrenia: Status: Acute (3) Class 3 obesity: Status: Acute (4) Pancytopenia: Status: Chronic Plan Patient is a 60-year-old male with a past medical history significant for smoking, severe COPD on 4 L via [place] at baseline, type 2 diabetes, hypertension, CAD, history [place], HFpEEF, HOCM, HLD, prolonged QT, JUDY and schizophrenia, who presented to the ED from the retirement due to shortness of breath and hypoxia. On admission BNP elevated, currently on IV Lasix 40 mg b.i.d, with improvement of oxygenation Acute on chronic respiratory failure with hypoxia secondary to CHF exacerbation, improving HFrEF CHF exacerbation, improving -Chest x ray reviewed - s/p lasix 60mg in ED, continue lasix 40mg IV BID, metoprolol succinate restarted, will likely transition to PO lasix tomorrow and restart jardiance. - Is and Os - titrate oxygen as needed elevated troponin likely demand in setting of hypoxia - likely due to hypoxia - EKG with no changes COPD, no acute exacerbation - duonebs PRN - continue home meds T2DM - sliding scale insulin - diabetic diet - continue Long acting 15 units qhs HTN -continue home medications, will give PRN meds CAD/hx [place] - continue home meds schizophrenia - continue home meds Pancytopenia, chronic, stable -continue to monitor, transfuse for Hb less than 7 Obesity likely secondary to increase calories continue w/ diet Code Status: Full Code VTE prophy: heparin Disposition: All questions and concerns with the patient were answered to satisfaction. All pertinent clinical documents, images and labs were reviewed. DISCLAIMER: This document was created using voice recognition software. Any mistakes in the prescription are unintentional. An attempt was made to focus for accuracy, but to expedite availability, some errors may persist. Please contact with any need for correction or further clarification Total time managing care of this patient today: 35 minutes. Quality Stroke Does the patient have a stroke diagnosis?: No VTE Prior VTE?: No VTE Risk Level:: Medical - moderate - high VTE Device Contraindication: Treatment Not Indicated VTE Drug Contraindication: N/A - Med Ordered
[2025-08-15 11:48] LABS: Glucose, Whole Blood 235 mg/dL (60-115)
[2025-08-15] MEDS: Metoprolol Succinate ER 100 MG TAB.ER.24H PO (11:52)
[2025-08-15 16:36] LABS: Glucose, Whole Blood 232 mg/dL (60-115)
[2025-08-15 20:48] LABS: Glucose, Whole Blood 214 mg/dL (60-115)
[2025-08-15] MEDS: Insulin Glargine,Hum.rec.anlog 100 UNIT/ML 10 ML VIAL 15 UNIT SUBCUT (20:57)
[2025-08-16 03:13] VITALS: BP 124/65; PULSE 83; RESP 18; TEMP 36.9; O2SAT 94
[2025-08-16 07:40] LABS: Glucose, Whole Blood 217 mg/dL (60-115)
[2025-08-16 07:41] VITALS: BP 132/73; PULSE 78; RESP 18; TEMP 36.2; O2SAT 95
[2025-08-16] MEDS: 0.9 % Sodium Chloride Flush 3 ML SYRINGE IVFLUSH ×3 (07:53→21:26)
[2025-08-16] MEDS: Furosemide 40 MG/4 ML VIAL IVPUSH (08:45)
[2025-08-16] MEDS: Aspirin Enteric Coated 81 MG TABLET.DR PO (08:46)
[2025-08-16] MEDS: Milk of Magnesia 30 ML ORAL.SUSP PO (08:46)
[2025-08-16] MEDS: Metoprolol Succinate ER 100 MG TAB.ER.24H PO (08:47)
--- NOTE | 2025-08-16 10:39 | HO.PM.IMPN ---
Subjective Subjective Date of Service: 08/16/25 Interval History: Patient seen examined at bedside this morning, patient states that he is feeling better, breathing has improved. Recently decreased IV diuretic dose. No concerns voiced by nursing staff. Review of Systems Review of Systems: Yes all other systems are reviewed and are negative Physical Exam Exam: Exam: General: AxOx3, No acute distress Head: AT/NC ENT: Moist mucous membranes Neck: supple CVS; RRR, S1 S2 normal Lungs: Clear bilateral breath sounds, no wheezes or crackles Abd: Soft non tender, non distended Ext: No edema and no calf tenderness MSK: moving all 4 limbs Skin: No cyanosis or edema Psych: Cooperative with exam Neurology: no focal deficit Vital Signs: Vital Signs: Last Vital Signs Temp 97.2 F 08/16/25 07:41 Pulse 78 08/16/25 07:41 Resp 18 08/16/25 07:41 BP 132/73 08/16/25 07:41 Pulse Ox 95 08/16/25 07:41 O2 Del Method Nasal Cannula 08/16/25 07:41 O2 Flow Rate 2 08/16/25 07:41 BMI result Body Mass Index 37.4 Objective Data Active Medications Acetaminophen (Acetaminophen 325 Mg Tablet) 975 mg PO Q6H PRN PRN Reason: Pain, Mild 1-3,fever,headache Albuterol/Ipratropium (Albuterol/Iprat 2.5/0.5mg 3 Ml Ampul.Neb) 3 ml INHALE Q4H PRN PRN Reason: Shortness of Breath/Wheezing Aspirin (Aspirin Enteric Coated 81 Mg Tablet.) 81 mg PO DAILY [facility] Last Admin: 08/16/25 08:46 Dose: 81 mg Documented By: MARCO A Atorvastatin Calcium (Atorvastatin Calcium 20 Mg Tablet) 20 mg PO BEDTIME [facility] Last Admin: 08/15/25 20:57 Dose: 20 mg Documented By: FREEMAN Calcium Carbonate (Calcium Carbonate 750 Mg Tab.Chew) 750 mg PO Q4H PRN PRN Reason: Heartburn Clozapine (Clozapine 100 Mg Tablet) 100 mg PO BEDTIME [facility] Last Admin: 08/15/25 20:57 Dose: 100 mg Documented By: FREEMAN Clozapine (Clozapine 25 Mg Tablet) 75 mg PO BEDTIME [facility] Last Admin: 08/15/25 20:58 Dose: 75 mg Documented By: FREEMAN Dextrose (Dextrose 50 % 25 Gm/50 Ml Syringe) 25 gm IVPUSH Q15M PRN; Protocol PRN Reason: per Hypoglycemia Standing Ord. Docusate Sodium (Docusate Sodium 100 Mg Capsule) 100 mg PO BEDTIME PRN PRN Reason: Constipation Last Admin: 08/15/25 20:57 Dose: 100 mg Documented By: FREEMAN Empagliflozin (Empagliflozin 10 Mg Tablet) 5 mg PO DAILY [facility] Furosemide (Furosemide 40 Mg Tablet) 40 mg PO BID@0900,1800 [facility]; Protocol Glucose (Glucose Gel 15 Gm Gel..Gram.) 15 gm PO Q15M PRN; Protocol PRN Reason: per Hypoglycemia Standing Ord. Heparin Sodium (Porcine) (Heparin Sodium,Porcine 5,000 Unit/Ml Vial) 5,000 unit SUBCUT Q8H [facility] Last Admin: 08/16/25 08:45 Dose: 5,000 unit Documented By: MARCO A Insulin Glargine (Insulin Glargine,Hum.Rec.Anlog 100 Unit/Ml 10 Ml Vial) 15 unit SUBCUT BEDTIME [facility] Last Admin: 08/15/25 20:57 Dose: 15 unit Documented By: FREEMAN Insulin Human Lispro (Insulin Lispro 100 Unit/Ml 3 Ml Vial) 0 unit SUBCUT QIDACHS [facility]; Protocol Last Admin: 08/16/25 07:52 Dose: 4 unit Documented By: MARCO A Lurasidone HCl (Lurasidone Hcl 20 Mg Tablet) 60 mg PO BEDTIME [facility] Last Admin: 08/15/25 20:57 Dose: 60 mg Documented By: FREEMAN Magnesium Hydroxide (Milk Of Magnesia 30 Ml Oral.Susp) 30 ml PO DAILY PRN PRN Reason: Constipation Last Admin: 08/16/25 08:46 Dose: 30 ml Documented By: MARCO A Melatonin (Melatonin 3 Mg Tablet) 6 mg PO BEDTIME PRN PRN Reason: Insomnia Metoprolol Succinate (Metoprolol Succinate Er 100 Mg Tab.Er.24h) 100 mg PO DAILY [facility]; Protocol Last Admin: 08/16/25 08:47 Dose: 100 mg Documented By: MARCO A Nicotine Polacrilex (Nicotine Polacrilex Lozenge 4 Mg Lozenge) 4 mg BUCCAL Q2H PRN PRN Reason: Smoking Cessation Omeprazole (Omeprazole 40 Mg Capsule.) 40 mg PO BID@9497,8554 [facility] Last Admin: 08/16/25 05:58 Dose: 40 mg Documented By: FREEMAN Polyethylene Glycol (Polyethylene Glycol 3350 17 Gm Powd.Pack) 17 gm PO DAILY PRN PRN Reason: Constipation Senna/Docusate Sodium (Sennosides/Docusate Sodium Tablet) 2 tab PO DAILY [facility] Last Admin: 08/16/25 08:46 Dose: 2 tab Documented By: MARCO A Sodium Chloride (0.9 % Sodium Chloride Flush 3 Ml Syringe) 3 ml IVFLUSH QSHIFT [facility] Last Admin: 08/16/25 07:53 Dose: 3 ml Documented By: MARCO A Trazodone HCl (Trazodone Hcl 100 Mg Tablet) 100 mg PO BEDTIME [facility] Last Admin: 08/15/25 20:57 Dose: 100 mg Documented By: FREEMAN Vitamin D (Cholecalciferol (Vitamin D3) 25 Mcg Tablet) 25 mcg PO DAILY [facility] Last Admin: 08/16/25 08:46 Dose: 25 mcg Documented By: MARCO A Labs 08/15/25 06:34 08/15/25 06:34 Labs: Laboratory Results - last 24 hr 08/15/25 08/15/25 08/15/25 11:45 16:31 20:44 POC Glucose 235 H 232 H 214 H 08/16/25 07:22 POC Glucose 217 H Assessment and Plan (1) CHF (congestive heart failure): Status: Acute (2) Schizophrenia: Status: Acute (3) Acute and chronic respiratory failure with hypoxia: Status: Acute Plan Patient is a 60-year-old male with a past medical history significant for smoking, severe COPD on 4 L via [place] at baseline, type 2 diabetes, hypertension, CAD, history [place], HFpEEF, HOCM, HLD, prolonged QT, JUDY and schizophrenia, who presented to the ED from the long term due to shortness of breath and hypoxia. On admission BNP elevated, currently on IV Lasix 40 mg b.i.d, with improvement of oxygenation Acute on chronic respiratory failure with hypoxia secondary to CHF exacerbation, improving HFrEF CHF exacerbation, improving -Chest x ray reviewed - s/p lasix 60mg in ED, transition to lasix 40mg PO BID, metoprolol succinate. restarted jardiance. - Is and Os - titrate oxygen as needed elevated troponin likely demand in setting of hypoxia - likely due to hypoxia - EKG with no changes COPD, no acute exacerbation - duonebs PRN - continue home meds T2DM - sliding scale insulin - diabetic diet - continue Long acting 15 units qhs HTN -continue home medications, will give PRN meds CAD/hx [place] - continue home meds schizophrenia - continue home meds Pancytopenia, chronic, stable -continue to monitor, transfuse for Hb less than 7 Obesity likely secondary to increase calories continue w/ diet Code Status: Full Code VTE prophy: heparin Disposition: All questions and concerns with the patient were answered to satisfaction. All pertinent clinical documents, images and labs were reviewed. DISCLAIMER: This document was created using voice recognition software. Any mistakes in the prescription are unintentional. An attempt was made to focus for accuracy, but to expedite availability, some errors may persist. Please contact with any need for correction or further clarification Total time managing care of this patient today: 35 minutes. Quality Stroke Does the patient have a stroke diagnosis?: No VTE Prior VTE?: No VTE Risk Level:: Medical - moderate - high VTE Device Contraindication: Treatment Not Indicated VTE Drug Contraindication: N/A - Med Ordered
[2025-08-16 11:26] LABS: Glucose, Whole Blood 218 mg/dL (60-115)
[2025-08-16 15:50] VITALS: BP 125/65; PULSE 74; RESP 18; TEMP 36.3; O2SAT 94
[2025-08-16 16:23] LABS: Glucose, Whole Blood 191 mg/dL (60-115)
[2025-08-16 20:00] VITALS: BP 127/79; PULSE 78; RESP 19; TEMP 35.9; O2SAT 95
[2025-08-16 20:52] LABS: Glucose, Whole Blood 200 mg/dL (60-115)
[2025-08-16] MEDS: Insulin Glargine,Hum.rec.anlog 100 UNIT/ML 10 ML VIAL 15 UNIT SUBCUT (21:25)
[2025-08-17 04:00] VITALS: BP 128/66; PULSE 81; RESP 18; TEMP 36.1; O2SAT 94
[2025-08-17 07:06] VITALS: BP 133/63; PULSE 82; RESP 16; TEMP 36.4; O2SAT 96
[2025-08-17 07:58] LABS: Glucose, Whole Blood 194 mg/dL (60-115)
[2025-08-17 08:07] VITALS: BP 133/63
[2025-08-17 08:08] VITALS: BP 133/63; PULSE 82
[2025-08-17] MEDS: Metoprolol Succinate ER 100 MG TAB.ER.24H PO (08:08)
[2025-08-17] MEDS: Aspirin Enteric Coated 81 MG TABLET.DR PO (08:08)
[2025-08-17] MEDS: 0.9 % Sodium Chloride Flush 3 ML SYRINGE IVFLUSH (08:13)
--- NOTE | 2025-08-17 09:29 | PM.DS ---
DS: Providers Provider Date of Service: 08/17/25 Date of admission: 08/12/25 23:57 Date of discharge: 08/17/25 Primary care physician: Regan Hogue MD Attending physician on discharge: Roldan Carter Discharging clinician: Roldan Carter DS: Diagnosis Discharge Diagnosis (1) CHF (congestive heart failure): Status: Acute (2) Schizophrenia: Status: Acute (3) Acute and chronic respiratory failure with hypoxia: Status: Acute DS: Summary Hospital Course Hospital Course: Patient is a 60-year-old male with a past medical history significant for smoking, severe COPD on 4 L via [place] at baseline, type 2 diabetes, hypertension, CAD, history [place], HFpEEF, HOCM, HLD, prolonged QT, JUDY and schizophrenia, who presented to the ED from the longterm due to shortness of breath and hypoxia. On admission BNP elevated. Was given IV Lasix, with improvement of systems, later transitioned to p.o. Lasix and GDM 2 was restarted. Patient at this time states that he is not feeling well as he wishes to see Dr. Cox for a cystoscopy in the outpatient setting. Counseling given that patient has follow up with Dr. Cox, then patient mentioned that his breathing has greatly improved. Acute on chronic respiratory failure with hypoxia secondary to CHF exacerbation, resolved HFrEF, chronic CHF exacerbation, improved -Chest x ray reviewed - s/p IV lasix 60mg in ED, continue lasix 40mg PO, metoprolol succinate and jardiance. - titrate oxygen as needed -low salt diet COPD, no acute exacerbation - duonebs PRN - continue home meds T2DM - sliding scale insulin - diabetic diet - continue Long acting 15 units qhs HTN -continue home medications, will give PRN meds CAD/hx [place] - continue home meds schizophrenia - continue home meds Pancytopenia, chronic, stable -continue to monitor, as outpatient Obesity likely secondary to increase calories continue w/ diet All new and continued medications were discussed in depth with the patient, and new prescriptions were given directly to patient and/or verification of the prescriptions were sent to patient's preferred pharmacy directly. All side effects were discussed. Follow-up instructions were given. Patient voiced understanding. Patient was given the opportunity ask questions and express concerns, all of which were answered to their satisfaction. Patient was instructed to follow-up with PCP within 3 to 10 days of discharge and head to the nearest emergency room or call 911 if symptoms worsen or new symptoms develop. This is a summary of the patient's stay; for more complete details please see chart. More than 35 minutes was spent with patient regarding workup, diagnosis and follow-up. Time Attestation Discharge Coordination Time (in mins): 35 minutes Quality: Safe Use of Opioids Does Pt have an Active Cancer Diagnosis on the Problem List?: No Quality: Stroke Does the patient have a stroke diagnosis?: No Physical Exam Exam: Exam: General: AxOx3, No acute distress Head: AT/NC ENT: Moist mucous membranes Neck: supple CVS; RRR, S1 S2 normal Lungs: Clear bilateral breath sounds, no wheezes or crackles Abd: Soft non tender, non distended Ext: No edema and no calf tenderness MSK: moving all 4 limbs Skin: No cyanosis or edema Psych: Cooperative with exam Neurology: no focal deficit Vital Signs: Vital Signs: Last Vital Signs Temp 97.6 F 08/17/25 07:06 Pulse 82 08/17/25 08:08 Resp 16 08/17/25 07:06 BP 133/63 08/17/25 08:08 Pulse Ox 96 08/17/25 07:06 O2 Del Method Nasal Cannula 08/17/25 07:06 O2 Flow Rate 1 08/17/25 07:06 BMI result Body Mass Index 37.4 DS: Data Data Completed and Pending Completed studies during hospitalization [Text1]: Procedures Assistance with Respiratory Ventilation, Less than 24 Consecutive Hours, Continuous Positive Airway Pressure (05/27/24) Drainage of Spinal Canal, Percutaneous Approach, Diagnostic (01/15/24) Fluoroscopy of Spinal Cord (01/15/24) Introduction of Remdesivir Anti-infective into Peripheral Vein, Percutaneous Approach, [employer] (09/25/21) Labs on day of discharge: Laboratory Results - last 24 hr 08/16/25 08/16/25 08/16/25 11:17 16:20 20:48 POC Glucose 218 H 191 H 200 H 08/17/25 07:11 POC Glucose 194 H Discharge Plan Discharge Anticipated Discharge Date/Time: 08/17/25 13:23 Patient Disposition: Home, Self-Care Discharge Diagnosis: Heart failure exacerbation, acute hypoxic respiratory failure Referrals: Regan Hogue MD [Primary Care Provider, Internal Medicine] - 1 Week Jasiel Cox MD [Physician, Urology] - 4 Weeks Discharge Medications: Continued albuterol sulfate 90 mcg/actuation HFA aerosol inhaler 2 puff inhalation Q6H PRN (Reason: Shortness Of Breath Or Wheezing) 30 Days Qty: 1 0RF furosemide 40 mg tablet 40 mg PO DAILY Qty: 30 0RF (DME) blood-glucose meter [Contour Next Gen Meter] Misc See Rx Instructions .Route Qty: 1 0RF Rx Instructions: As directed- BID (DME) Contour Next Test Strips Strip See Rx Instructions .Route Qty: 100 11RF Rx Instructions: As directed- BID (DME) lancets [E-Z Ject Lancets] 33 gauge misc See Rx Instructions .Route Qty: 100 0RF Rx Instructions: As directed- BID omeprazole 20 mg capsule,delayed release(DR/EC) 40 mg PO BID@0630,1630 Qty: 180 0RF cholecalciferol (vitamin D3) 25 mcg (1,000 unit) capsule 25 mcg PO DAILY Qty: 30 0RF aspirin 81 mg tablet,delayed release (DR/EC) 81 mg PO DAILY clozapine 25 mg tablet 75 mg PO BEDTIME clozapine 100 mg tablet 100 mg PO BEDTIME acetaminophen 650 mg Tablet Extended Release 650 mg PO Q6H PRN (Reason: Shortness Of Breath Or Wheezing) docusate sodium 100 mg capsule 100 mg PO BID alum-mag hydroxide-simeth 200-200-20 mg/5 mL Suspension 10 ml PO Q8H PRN (Reason: Indigestion) Rx Instructions: administer between meals and at bedtime polyethylene glycol 3350 [Miralax] 17 gram/dose Powder 17 g PO DAILY PRN (Reason: Constipation) lurasidone [Latuda] 60 mg tablet 60 mg PO BEDTIME linagliptin 5 mg Tablet 5 mg PO DAILY Jardiance 10 mg tablet 5 mg PO DAILY atorvastatin 20 mg tablet 20 mg PO BEDTIME metoprolol succinate 100 mg Tablet Extended Release 24 Hr 100 mg PO DAILY trazodone 100 mg Tablet 100 mg PO BEDTIME sennosides-docusate sodium [Senna Plus] 8.6-50 mg tablet 2 tab PO DAILY 30 Days Qty: 60 0RF Rx Instructions: hold for loose stool nicotine (polacrilex) 4 mg Lozenge 4 mg buccal Q2H PRN (Reason: Smoking Cessation) 30 Days Qty: 108 0RF (DME) pen needle, diabetic [BD Erica 2nd Gen Pen Needle] 32 gauge x 5/32 needle See Rx Instructions .ROUTE .MEDSUPPLY Qty: 100 11RF Rx Instructions: As directed to administer lantus insulin once daily insulin glargine [Lantus Solostar U-100 Insulin] 100 unit/mL (3 mL) insulin pen 15 unit subcut DAILY nitroglycerin 0.4 mg tablet, sublingual 0.4 mg sublingual Q5M PRN (Reason: Opioid Overdose) Rx Instructions: do not exceed 3 doses per episode Discharge Orders: Discharge Order (Routine); Ordered 08/17/25 Ordered By: Roldan Carter Diet: Low salt diet Activity on Discharge: As tolerated Stand Alone Forms: Patient Portal Discharge page Print Language: Icelandic Care Plan Goals: continue with therapy for heart failure, limit salt intake, at least 150 minutes of moderate excerise per week Health Concerns: heart failure exacerbation Plan of Treatment: continue goal directed medical therapy, give PRN lasix 40mg of increased weight 2.5 pounds in 2-3 days Follow up with Primary care provider Follow up with Urology as per patient requires cystoscopy Assessment: Patient is a 60-year-old male with a past medical history significant for smoking, severe COPD on 4 L via [place] at baseline, type 2 diabetes, hypertension, CAD, history [place], HFpEEF, HOCM, HLD, prolonged QT, JUDY and schizophrenia, who presented to the ED from the longterm due to shortness of breath and hypoxia. On admission BNP elevated. Was given IV Lasix, with improvement of systems, later transitioned to p.o. Lasix and GDM 2 was restarted. Patient at this time states that he is not feeling well as he wishes to see Dr. Cox for a cystoscopy in the outpatient setting. Counseling given that patient has follow up with Dr. Cox, then patient mentioned that his breathing has greatly improved. Patient Instructions: Heart Failure (DC)
--- NOTE | 2025-08-17 09:57 | MHC.CM.PN ---
Addendum entered by Wendy Kaplan 08/17/25 10:23: FINAL IMM DELIVERED Original Note: DP: PT HAS BEEN MEDICALLY CLEARED FOR DC HOME WITH RESUMPTION OF [facility]. [facility] ([phone]) HAS BEEN NOTIFIED OF TODAY'S DC. PT WILL TAKE [facility] AT 11:30 AM, RN AWARE.
[2025-08-17 11:25] VITALS: BP 117/68; PULSE 85; RESP 18; TEMP 36.2; O2SAT 94
== END 2025-08-17 11:28 | disposition home or self-care (01) | DRG 291 ==
LOC: HO.ED 22:55 → HO.EDOVER 08-13 00:03 → HO.S3 08-13 03:47
PROVIDERS: Admitting Provider Physician Assistant; Emergency Provider Emergency Medicine; PCP Internal Medicine; Visit Provider Student in an Organized Health Care Education/Training Program
DX: I11.0 Hypertensive heart disease with heart failure (principal); I50.33 Acute on chronic diastolic (congestive) heart failure; J96.21 Acute and chronic respiratory failure with hypoxia; D61.818 Other pancytopenia; F20.9 Schizophrenia, unspecified; J44.9 Chronic obstructive pulmonary disease, unspecified; E11.65 Type 2 diabetes mellitus with hyperglycemia; I42.1 Obstructive hypertrophic cardiomyopathy; I25.10 Atherosclerotic heart disease of native coronary artery without angina pectoris; G47.33 Obstructive sleep apnea (adult) (pediatric); R94.31 Abnormal electrocardiogram [ECG] [EKG]; E78.5 Hyperlipidemia, unspecified; I25.2 Old myocardial infarction; E66.09 Other obesity due to excess calories; Z68.37 Body mass index [BMI] 37.0-37.9, adult; Z20.822 Contact with and (suspected) exposure to COVID-19; Z99.81 Dependence on supplemental oxygen; Z87.891 Personal history of nicotine dependence; Z79.4 Long term (current) use of insulin; Z79.82 Long term (current) use of aspirin; Z79.899 Other long term (current) 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
CPT/HCPCS: 36415; 71045; 80048; 80053; 82947; 83880; 84145; 84484; 85025; 87502; 87635; 90656; 93005; 94640; 99285; J1644; J1938; J2919

== ENCOUNTER → 2025-08-12 22:08 | Outpatient (BNV) | payer MEDICARE, MEDICAID, SELFPAY | PROVIDERS: Emergency Provider Emergency Medicine; PCP Internal Medicine; Visit Provider Radiology Diagnostic Radiology | DX: R06.02 Shortness of breath (principal) | CPT/HCPCS: 71045 ==

== ENCOUNTER → 2025-08-12 23:57 | Outpatient (BNV) | payer MEDICARE, MEDICAID, SELFPAY | PROVIDERS: Admitting Provider Physician Assistant; Emergency Provider Emergency Medicine; PCP Internal Medicine; Visit Provider Student in an Organized Health Care Education/Training Program | DX: F20.9 Schizophrenia, unspecified (principal); I50.22 Chronic systolic (congestive) heart failure; I50.9 Heart failure, unspecified; D61.818 Other pancytopenia; J96.01 Acute respiratory failure with hypoxia; J96.21 Acute and chronic respiratory failure with hypoxia; R79.89 Other specified abnormal findings of blood chemistry; E66.01 Morbid (severe) obesity due to excess calories | CPT/HCPCS: 99223; 99233 ==

== ENCOUNTER 2025-08-21 09:32 | Outpatient (AMB) | payer MEDICARE, MEDICAID, SELFPAY ==
--- NOTE | 2025-08-21 09:37 | MHC.PC.OV ---
Vital Signs 08/21/25 09:39 Height 5 ft 8 in Weight 236 lb 6 oz BMI 35.9 BP 140/80 H Blood Pressure Location Lt brachial Position Sitting Pulse 94 Pulse Source Pulse Oximeter Temp 97.1 F Temp Source Temporal Artery Scan Pulse Oximetry (%) 96 Oxygen Delivery Method Room Air Intake Visit Reasons: TCM [facility] 08/17 CHF Intake Note: Patient is here for hospital discharge and TCM follow up. Patient was discharged from [facility] on 08/17/25. Telephone Lineman Required: No School Health Assistant: Present Accompanied by: Staff Allergies lithium ([place]) Allergy (Severe, Verified 08/21/25 09:39) Toxicity thiothixene Allergy (Severe, Verified 08/21/25 09:39) Swelling amoxicillin Allergy (Mild, Verified 08/21/25 09:39) Nose Bleed benztropine Allergy (Unknown, Verified 08/21/25 09:39) benztropine mesylate- unknown gabapentin (From NEURONTIN) Allergy (Unknown, Verified 08/21/25 09:39) Unknown fluphenazine (From Prolixin) Allergy (Verified 08/21/25 09:39) Unknown metformin Allergy (Verified 08/21/25 09:39) Anaphylaxis barium sulfate (BARIUM SULFATE) Adverse Reaction (Intermediate, Verified 08/21/25 09:39) Nausea and Vomiting haloperidol Adverse Reaction (Intermediate, Verified 08/21/25 09:39) Muscle tension in legs diphenhydramine (From Benadryl) Adverse Reaction (Unknown, Verified 08/21/25 09:39) urinary retention Tobacco use date assessed: 08/21/25 Dental Screening Dental Screen Date: 05/27/25 [facility] TCM TCM Information Date of Discharge 08/17/25 Discharged From [facility] Interactive Contact Date (Reference documentation from this date) 08/20/25 HPI Comments History of Present Illness Details 60-year-old male presents for TCM following recent hospitalization (08/12?08/17 at [facility]). Past Medical history significant for smoking, severe COPD on 4 L via NC at baseline, type 2 diabetes, hypertension, CAD, history KS, HFpEEF, HOCM, HLD, prolonged QT, JUDY and schizophrenia. He was admitted for evaluation of worsening shortness of breath and hypoxia. He reports ongoing dyspnea with exertion but states he is ?a bit better? than at discharge. Continues on 4 L Oxygen nasal cannula (baseline). Denies chest pain, fever, chills, or increased sputum production. Reports compliance with medications since discharge. No new leg swelling. Appetite fair. No orthopnea or PND. Denies hallucinations or acute psychiatric concerns. 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 BPH (benign prostatic hyperplasia) Diabetes mellitus Essential hypertension Coronary artery disease Osteoarthritis GERD without esophagitis Vitamin D deficiency Congestive heart failure COVID-19 Thought disorder Constipation COPD (chronic obstructive pulmonary disease) Smoker Diabetes mellitus Obesity (BMI 30-39.9) Pure hypercholesterolemia Prolonged QT interval Aggression Hypertension CHF (congestive heart failure) Cardiac arrhythmia Myocardial infarction Surgical History History of colonoscopy History of ankle surgery History of intestinal surgery History of transurethral resection of prostate Family History Father Medical history unknown Mother Medical history unknown Sister Alive and well Social History Household Members: Friend(s) Household Members Other:: Room mate Housing: Apartment Housing Other:: [facility] Do you presently have visiting nurse or other home services: Yes ([facility]) Alcohol intake: current Alcohol intake frequency: holidays/special occasions only Alcohol type: beer Comment: assist with portable o2 Patient Tobacco Use Status: Former Tobacco user Tobacco use type: Cigarette Cigarette Packs Per Day: 0.5 Cigarettes Per Day: 10 Years Smoked: Many e-Cigarette/Vaping Use: Currently Using Second Hand Smoke Exposure: Yes Substance Use Type: Unknown Advance Directives Date on File: 01/14/24 service: No Current occupational status: disabled Sexual orientation: Straight/Heterosexual Cognitive needs: Yes Hearing needs: No Vision needs: Yes Questionnaire Thrive Questionnaire Date Thrive assessed: 03/13/25 I am a: Patient What is your living situation today?: I have a steady place to live Within the past 12 months, did the food you bought not last and you didn't have the money to get more?: Often true Within the past 12 months, did you worry whether your food would run out before you got money to buy more?: Often true Do you have trouble paying for medicines?: No Do you have trouble getting transportation to medical appointments?: Yes Do you have trouble paying your heating and electricity bill?: Yes Do you have trouble taking care of your child, family member or friend?: No Do you have trouble with day-to-day activities such as bathing, preparing meals, shopping, managing finances, etc.?: No Are you currently unemployed and looking for a job?: No Are you interested in more education?: No Please select the resources that you would like help with: Care for elder or disabled THRIVE Score: 4 LINN-7 AMB Questionnaire LINN-7 Date LINN - 7 assessed: 05/27/25 Source: Developed by Drs. Ga Richard, Rosio Grigsby, Jose Johnson and colleagues, with an educational lulu from [employer]. Review of Systems Const All systems reviewed & are unremarkable except as noted in HPI and below Physical exam (Primary Care) Vital Signs: Last Vital Signs Temp 97.1 F 08/21/25 09:39 Pulse 94 08/21/25 09:39 BP 140/80 H 08/21/25 09:39 Pulse Ox 96 08/21/25 09:39 Oxygen Delivery Method Room Air 08/21/25 09:39 BMI result Body Mass Index 35.9 Tobacco/Smoking Status: Tobacco use Status Tobacco use date assessed 08/21/25 08/21/25 09:44 Patient Tobacco Use Status Former Tobacco user 08/21/25 09:37 Tobacco use type Cigarette 08/21/25 09:37 e-Cigarette/Vaping Use Currently Using 08/21/25 09:37 Thrive Assessment: Date of Thrive Assessment Date Thrive assessed 03/13/25 08/21/25 09:37 Const General: no acute distress Nutritional Appearance: obese Orientation/consciousness: patient oriented x3 Resp Effort & Inspection: normal respiratory effort Auscultation: clear to auscultation bilaterally Cardio Heart sounds: S1 normal heart sound present and S2 normal heart sound present Neuro General: patient oriented x3, gait normal and moves all extremities Psych Speech and movement: Slowed speech present (Psych) Coding Level of Care Code TCM Mod MDM <= 7 Days Diagnoses Acute exacerbation of CHF (congestive heart failure) I50.9 Time Spent (min) 25 Assessment & Plan Assessment & Plan (1) Acute exacerbation of CHF (congestive heart failure): Code(s): I50.9 - Heart failure, unspecified Category: Medical Plan: CHF exacerbation, improved. Reinforce low-sodium diet, daily weights, and fluid management; reviewed red-flag symptoms. F/U with cardiology as scheduled. F/U with PCP.
[2025-08-21 09:39] VITALS: BP 140/80; PULSE 94; TEMP 36.2; O2SAT 96; BMI 35.9
--- OUTSIDE RECORDS SUMMARY | 2025-08-21 10:32 | XMS_ITS | Encounter Summary ---
Author Organization [facility] Address [address] [place] [address] Care Team Providers Care Adult Manager Name Role Phone Regan Hogue MD Primary Care Provider Encounter Details Date Type Department Care Team (Late st Contact Info) Description 08/12/2024 Lab Requisition [facility] - Main Lab [address] [place] [address] Freeman Cerna MD [address] Other watermaster (current) drug therapy Social History Tobacco Use [...] FEE Routine 08/12/2024 9:00 AM EST Other watermaster (current) drug therapy CBC WITH AUTO DIFFERENTIAL Routine 08/12/2024 9:00 AM EST Other watermaster (current) drug therapy CBC AND DIFFERENTIAL Routine 08/12/2024 9:00 AM EST Other watermaster (current) drug therapy documented in this encounter Results * (ABNORMAL) CBC auto differential (08/12/2024 9:00 AM EST) [facility] Signature WBC 6.5 4.8 - 10.8 K/[facility] LAB HEMETOLOGY METHOD 08/12/2024 11:44 AM EST [facility] LAB RBC 4.30(L) 4.50 - 5.50 M/mcL LAB HEMETOLOGY METHOD 08/12/2024 11:44 AM [facility] LAB Hemoglobin 11.6(L) 13.5 - 17.5 g/dL LAB HEMETOLOGY METHOD 08/12/2024 11:44 AM [facility] LAB Hematocrit 37.1(L) 42.0 - 54.0 % LAB HEMETOLOGY METHOD 08/12/2024 11:44 AM [facility] LAB MCV 86.7 79.0 - 98.0 FL LAB HEMETOLOGY METHOD 08/12/2024 11:44 AM [facility] LAB MCH 27.1 27.0 - 32.0 pcg LAB HEMETOLOGY METHOD 08/12/2024 11:44 AM [facility] LAB MCHC 31.3(L) 32.0 - 37.0 g/dL LAB HEMETOLOGY METHOD 08/12/2024 11:44 AM [facility] LAB RDW 15.7(H) 11.0 - 15.0 % LAB HEMETOLOGY METHOD 08/12/2024 11:44 AM [facility] LAB Platelets 121(L) 130 - 400 K/mcL LAB HEMETOLOGY METHOD 08/12/2024 11:44 AM [facility] LAB MPV 12.6(H) 7.0 - 11.0 FL LAB HEMETOLOGY METHOD 08/12/2024 11:44 AM [facility] LAB NRBC 0.0 <1.0 % LAB HEMETOLOGY METHOD 08/12/2024 11:44 AM [facility] LAB NRBC Absolute 0.00 <0.10 K/mcL LAB HEMETOLOGY METHOD 08/12/2024 11:44 AM [facility] LAB Neutrophils Relative 74.8 % LAB HEMETOLOGY METHOD 08/12/2024 11:44 AM [facility] LAB Lymphocytes Relative 13.3 % LAB HEMETOLOGY METHOD 08/12/2024 11:44 AM [facility] LAB Monocytes Relative 9.4 % LAB HEMETOLOGY METHOD 08/12/2024 11:44 AM [facility] LAB Eosinophils Relative 1.1 % LAB HEMETOLOGY METHOD 08/12/2024 11:44 AM [facility] LAB Basophils Relative 0.6 % LAB HEMETOLOGY METHOD 08/12/2024 11:44 AM [facility] LAB Immature Granulocytes Relative 0.8 % LAB HEMETOLOGY METHOD 08/12/2024 11:44 AM [facility] LAB Neutrophils Absolute 4.86 1.50 - 7.00 K/mcL LAB HEMETOLOGY METHOD 08/12/2024 11:44 AM [facility] LAB Lymphocytes Absolute 0.86(L) 1.00 - 5.00 K/mcL LAB HEMETOLOGY METHOD 08/12/2024 11:44 AM [facility] LAB Monocytes Absolute 0.61 0.20 - 1.00 K/mcL LAB HEMETOLOGY METHOD 08/12/2024 11:44 AM [facility] LAB Eosinophils Absolute 0.07 0.00 - 0.50 K/mcL LAB HEMETOLOGY METHOD 08/12/2024 11:44 AM [facility] LAB Basophils Absolute 0.04 0.00 - 0.20 K/mcL LAB HEMETOLOGY METHOD 08/12/2024 11:44 AM [facility] LAB Immature Granulocytes Absolute 0.05(H) 0.00 - 0.03 K/mcL LAB HEMETOLOGY METHOD 08/12/2024 11:44 AM [facility] LAB Blood Venous blood specimen / Unknown Venipuncture / Unknown 08/12/2024 9:00 AM EST 08/12/2024 10:29 AM EST us Freeman Cerna MD LAB BLOOD ORDERABLES Final Resul t Performing Organization Address [facility]/ZIP Co de Phone Number [facility] LAB [address] [place] [address], * Travel phlebotomy fee (08/12/2024 9:00 AM EST) [facility] TRAVEL PHLEBOTOMY FEE Completed 08/12/2024 11:02 AM EST [facility] LAB Blood Venous blood specimen / Unknown Venipuncture / Unknown 08/12/2024 9:00 AM EST 08/12/2024 10:29 AM EST Freeman Cerna MD LAB BLOOD ORDERABLES Final Resul t Performing Organization Address [facility] Co de Phone Number [facility] [address] [place] [address], [place] [phone] documented in this encounter Visit Diagnoses Diagnosis Other care home (current) drug therapy documented in this encounter Care Teams Adult Manager Relationship Specialty Start Date End Date Regan Hogue MD [address] [place] [address] Dr [address] [place] PCP - General Internal Medicine 11/12/24 documented as of this encounter
--- OUTSIDE RECORDS SUMMARY | 2025-08-21 10:32 | XMS_ITS | Encounter Summary ---
Author Organization [facility] Address [address] [place] [address] Care Team Providers Care Contract Writer Name Role Phone Regan Hogue MD Primary Care Provider Encounter Details Date Type Department Care Team (Late st Contact Info) Description 08/10/2025 Lab Requisition [facility] Lab [address] [place] [address] Amara Trivedi NP [address] [place] [address] Other manager of loss prevention operations (current) drug therapy Social History Tobacco Use [...] DIFFERENTIAL Routine 08/11/2025 7:15 AM EST Other manager of loss prevention operations (current) drug therapy CBC AND DIFFERENTIAL Routine 08/11/2025 7:15 AM EST Other manager of loss prevention operations (current) drug therapy documented in this encounter Results * (ABNORMAL) CBC auto differential (08/11/2025 7:15 AM EST) WBC 9.4 4.8 - 10.8 K/[facility] LAB HEMETOLOGY METHOD 08/11/2025 1:17 PM EST [facility] LAB RBC 4.10(L) 4.50 - 5.50 M/[facility] LAB HEMETOLOGY METHOD 08/11/2025 1:17 PM [facility] LAB Hemoglobin 10.6(L) 13.5 - 17.5 g/dL LAB HEMETOLOGY METHOD 08/11/2025 1:17 PM [facility] LAB Hematocrit 35.5(L) 42.0 - 54.0 % LAB HEMETOLOGY METHOD 08/11/2025 1:17 PM [facility] LAB MCV 86.0 79.0 - 98.0 FL LAB HEMETOLOGY METHOD 08/11/2025 1:17 PM [facility] LAB MCH 25.7(L) 27.0 - 32.0 pcg LAB HEMETOLOGY METHOD 08/11/2025 1:17 PM [facility] LAB MCHC 29.9(L) 32.0 - 37.0 g/dL LAB HEMETOLOGY METHOD 08/11/2025 1:17 PM [facility] LAB RDW 19.5(H) 11.0 - 15.0 % LAB HEMETOLOGY METHOD 08/11/2025 1:17 PM [facility] LAB Platelets 138 130 - 400 K/mcL LAB HEMETOLOGY METHOD 08/11/2025 1:17 PM [facility] LAB MPV 12.3(H) 7.0 - 11.0 FL LAB HEMETOLOGY METHOD 08/11/2025 1:17 PM [facility] LAB NRBC 0.0 <1.0 % LAB HEMETOLOGY METHOD 08/11/2025 1:17 PM [facility] LAB NRBC Absolute 0.00 <0.10 K/mcL LAB HEMETOLOGY METHOD 08/11/2025 1:17 PM [facility] LAB Neutrophils Relative 78.4 % LAB HEMETOLOGY METHOD 08/11/2025 1:17 PM [facility] LAB Lymphocytes Relative 12.7 % LAB HEMETOLOGY METHOD 08/11/2025 1:17 PM [facility] LAB Monocytes Relative 7.4 % LAB HEMETOLOGY METHOD 08/11/2025 1:17 PM EST [facility] LAB Eosinophils Relative 0.6 % LAB HEMETOLOGY METHOD 08/11/2025 1:17 PM [facility] LAB Basophils Relative 0.3 % LAB HEMETOLOGY METHOD 08/11/2025 1:17 PM [facility] LAB Immature Granulocytes Relative 0.6 % LAB HEMETOLOGY METHOD 08/11/2025 1:17 PM [facility] LAB Neutrophils Absolute 7.34(H) 1.50 - 7.00 K/mcL LAB HEMETOLOGY METHOD 08/11/2025 1:17 PM [facility] LAB Lymphocytes Absolute 1.19 1.00 - 5.00 K/mcL LAB HEMETOLOGY METHOD 08/11/2025 1:17 PM [facility] LAB Monocytes Absolute 0.69 0.20 - 1.00 K/mcL LAB HEMETOLOGY METHOD 08/11/2025 1:17 PM [facility] LAB Eosinophils Absolute 0.06 0.00 - 0.50 K/mcL LAB HEMETOLOGY METHOD 08/11/2025 1:17 PM [facility] LAB Basophils Absolute 0.03 0.00 - 0.20 K/mcL LAB HEMETOLOGY METHOD 08/11/2025 1:17 PM [facility] LAB Immature Granulocytes Absolute 0.06(H) 0.00 - 0.03 K/mcL LAB HEMETOLOGY METHOD 08/11/2025 1:17 PM [facility] LAB Blood Venous blood specimen / Unknown Venipuncture / Unknown 08/11/2025 7:15 AM EST 08/11/2025 10:02 AM EST us Amara Trivedi NP LAB BLOOD ORDERABLES Final R esult [facility] LAB [address] [place] [address], documented in this encounter Visit Diagnoses Diagnosis Other manager of loss prevention operations (current) drug therapy documented in this encounter Care Teams Contract Writer Relationship Specialty Start Date End Date Regan Hogue MD [address] [place] [address] [address] [place] PCP - General Internal Medicine 11/12/24 documented as of this encounter
--- OUTSIDE RECORDS SUMMARY | 2025-08-21 10:32 | XMS_ITS | Encounter Summary ---
Author Organization [facility] Address [address] [place] [address] Care Team Providers Care Physician General Internal Medicine Name Role Phone Regan Hogue MD Primary Care Provider Encounter Details Date Type Department Care Team (Late st Contact Info) Description 01/27/[address] 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 LAB RBC 4.90 4.50 - 5.50 M/[facility] LAB HEMETOLOGY METHOD 01/27/2025 8:36 AM [...] 8:[address] [facility] LAB Monocytes Relative 9.3 % LAB HEMETOLOGY METHOD 01/27/2025 8:[address] [facility] LAB Eosinophils Relative 1.6 % LAB HEMETOLOGY METHOD 01/27/2025 8:[address] [facility] LAB Basophils Relative 0.7 % LAB HEMETOLOGY METHOD 01/27/2025 8:[address] [facility] LAB Immature Granulocytes Relative 0.3 % LAB HEMETOLOGY METHOD 01/27/2025 8:[address] [facility] LAB Neutrophils Absolute 6.41 1.50 - 7.00 K/mcL LAB HEMETOLOGY METHOD 01/27/2025 8:[address] [facility] LAB Lymphocytes Absolute 1.27 1.00 - 5.00 K/mcL LAB HEMETOLOGY METHOD 01/27/2025 8:[address] [facility] LAB Monocytes Absolute 0.81 0.20 - 1.00 K/mcL LAB HEMETOLOGY METHOD 01/27/2025 8:[address] [facility] LAB Eosinophils Absolute 0.14 0.00 - 0.50 K/mcL LAB [facility]OLOGY 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
--- OUTSIDE RECORDS SUMMARY | 2025-08-21 10:32 | XMS_ITS | Encounter Summary ---
Author Organization [facility] Address [address] [place] [address] Care Team Providers Care Bindery Supervisor Name Role Phone Regan Hogue MD Primary Care Provider Encounter Details Date Type Department Care Team (Late st Contact Info) Description 10/07/2024 Lab Requisition [facility] - Main Lab [address] [facility] [place] [address] Freeman Cerna MD [address] Other terminal computer operator (current) drug therapy Social History Tobacco [...] Routine 10/07/2024 7:40 AM EST Other terminal computer operator (current) drug therapy CBC AND DIFFERENTIAL Routine 10/07/2024 7:40 AM EST Other terminal computer operator (current) drug therapy documented in this encounter Results * (ABNORMAL) CBC auto differential (10/07/2024 7:40 AM EST) WBC 8.0 4.8 - 10.8 K/[facility] LAB HEMETOLOGY METHOD 10/07/2024 12:19 PM EST [facility] ([facility] LAB RBC 4.20(L) 4.50 - 5.50 M/[facility] LAB HEMETOLOGY METHOD 10/07/2024 12:19 PM [facility] LAB Hemoglobin 11.1(L) 13.5 - 17.5 g/dL LAB HEMETOLOGY METHOD 10/07/2024 12:19 PM [facility] LAB Hematocrit 36.7(L) 42.0 - 54.0 % LAB HEMETOLOGY METHOD 10/07/2024 12:19 PM [facility] LAB MCV 87.0 79.0 - 98.0 FL LAB HEMETOLOGY METHOD 10/07/2024 12:19 PM [facility] LAB MCH 26.3(L) 27.0 - 32.0 pcg LAB HEMETOLOGY METHOD 10/07/2024 12:19 PM [facility] LAB MCHC 30.2(L) 32.0 - 37.0 g/dL LAB HEMETOLOGY METHOD 10/07/2024 12:19 PM [facility] LAB RDW 15.3(H) 11.0 - 15.0 % LAB HEMETOLOGY METHOD 10/07/2024 12:19 PM [facility] LAB Platelets 160 130 - 400 K/mcL LAB HEMETOLOGY METHOD 10/07/2024 12:19 PM [facility] LAB MPV 12.9(H) 7.0 - 11.0 FL LAB HEMETOLOGY METHOD 10/07/2024 12:19 PM [facility] LAB NRBC 0.0 <1.0 % LAB HEMETOLOGY METHOD 10/07/2024 12:19 PM [facility] LAB NRBC Absolute 0.00 <0.10 K/mcL LAB HEMETOLOGY METHOD 10/07/2024 12:19 PM [facility] LAB Neutrophils Relative 72.5 % LAB HEMETOLOGY METHOD 10/07/2024 12:19 PM [facility] LAB Lymphocytes Relative 16.9 % LAB HEMETOLOGY METHOD 10/07/2024 12:19 PM [facility] LAB Monocytes Relative 7.4 % LAB HEMETOLOGY METHOD 10/07/2024 12:19 PM EST [facility] LAB Eosinophils Relative 2.1 % LAB HEMETOLOGY METHOD 10/07/2024 12:19 PM [facility] LAB Basophils Relative 0.6 % LAB HEMETOLOGY METHOD 10/07/2024 12:19 PM [facility] LAB Immature Granulocytes Relative 0.5 % LAB HEMETOLOGY METHOD 10/07/2024 12:19 PM [facility] LAB Neutrophils Absolute 5.78 1.50 - 7.00 K/mcL LAB HEMETOLOGY METHOD 10/07/2024 12:19 PM [facility] LAB Lymphocytes Absolute 1.35 1.00 - 5.00 K/mcL LAB HEMETOLOGY METHOD 10/07/2024 12:19 PM [facility] LAB Monocytes Absolute 0.59 0.20 - 1.00 K/mcL LAB HEMETOLOGY METHOD 10/07/2024 12:19 PM EST [facility] LAB Eosinophils Absolute 0.17 0.00 - 0.50 K/mcL LAB HEMETOLOGY METHOD 10/07/2024 12:19 PM [facility] LAB Basophils Absolute 0.05 0.00 - 0.20 K/mcL LAB HEMETOLOGY METHOD 10/07/2024 12:19 PM [facility] LAB Immature Granulocytes Absolute 0.04(H) 0.00 - 0.03 K/mcL LAB HEMETOLOGY METHOD 10/07/2024 12:19 PM [facility] LAB Blood Venous blood specimen / Unknown Venipuncture / Unknown 10/07/2024 7:40 AM EST 10/07/2024 11:28 AM EST us Freeman Cerna MD LAB BLOOD ORDERABLES Final Resul t [facility] [address] [place], [place] [address] [phone] documented in this encounter Visit Diagnoses Diagnosis Other chcf (current) drug therapy documented in this encounter Care Teams Bindery Supervisor Relationship Specialty Start Date End Date Regan Hogue MD [address] [place] [address] Dr [address] [place] PCP - General Internal Medicine 11/12/24 documented as of this encounter
--- OUTSIDE RECORDS SUMMARY | 2025-08-21 10:32 | XMS_ITS | Encounter Summary ---
Author Organization [facility] Address [address] [place] [address] Care Team Providers Care Chemical Equipment Controller Name Role Phone Regan Hogue MD Primary Care Provider Encounter Details Date Type Department Care Team (Late st Contact Info) Description 02/23/2025 Lab Requisition [facility] - Main Lab 299 [facility] [place] [address] Freeman Cerna MD [address] Other joint terminal attack controller [...] DIFFERENTIAL Routine 02/24/2025 6:34 AM EDT Other joint terminal attack controller (current) drug therapy CBC AND DIFFERENTIAL Routine 02/24/2025 6:34 AM EDT Other joint terminal attack controller (current) drug therapy documented in this encounter Results * (ABNORMAL) CBC auto differential (02/24/2025 6:34 AM EDT) WBC 8.6 4.8 - 10.8 K/[facility] LAB HEMETOLOGY METHOD 02/24/2025 8:23 AM EDT [facility] LAB RBC 4.70 4.50 - 5.50 M/[facility] LAB HEMETOLOGY METHOD 02/24/2025 8:23 AM [facility] LAB Hemoglobin 11.2(L) 13.5 - 17.5 g/dL LAB HEMETOLOGY METHOD 02/24/2025 8:23 AM [facility] LAB Hematocrit 38.4(L) 42.0 - 54.0 % LAB HEMETOLOGY METHOD 02/24/2025 8:23 AM [facility] LAB MCV 81.7 79.0 - 98.0 FL LAB HEMETOLOGY METHOD 02/24/2025 8:23 AM [facility] LAB MCH 23.8(L) 27.0 - 32.0 pcg LAB HEMETOLOGY METHOD 02/24/2025 8:23 AM [facility] LAB MCHC 29.2(L) 32.0 - 37.0 g/dL LAB HEMETOLOGY METHOD 02/24/2025 8:23 AM [facility] LAB RDW 17.6(H) 11.0 - 15.0 % LAB HEMETOLOGY METHOD 02/24/2025 8:23 AM [facility] LAB Platelets 207 130 - 400 K/mcL LAB HEMETOLOGY METHOD 02/24/2025 8:23 AM [facility] LAB MPV 12.0(H) 7.0 - 11.0 FL LAB HEMETOLOGY METHOD 02/24/2025 8:23 AM [facility] LAB NRBC 0.0 <1.0 % LAB HEMETOLOGY METHOD 02/24/2025 8:23 AM [facility] LAB NRBC Absolute 0.00 <0.10 K/mcL LAB HEMETOLOGY METHOD 02/24/2025 8:23 AM [facility] LAB Neutrophils Relative 67.7 % LAB HEMETOLOGY METHOD 02/24/2025 8:23 AM [facility] LAB Lymphocytes Relative 18.2 % LAB HEMETOLOGY METHOD 02/24/2025 8:23 AM EDT [facility] LAB Monocytes Relative 9.9 % LAB HEMETOLOGY METHOD 02/24/2025 8:23 AM EDT [facility] LAB Eosinophils Relative 3.0 % LAB HEMETOLOGY METHOD 02/24/2025 8:23 AM [facility] LAB Basophils Relative 0.7 % LAB HEMETOLOGY METHOD 02/24/2025 8:23 AM EDT [facility] LAB Immature Granulocytes Relative 0.5 % LAB HEMETOLOGY METHOD 02/24/2025 8:23 AM EDT [facility] LAB Neutrophils Absolute 5.81 1.50 - 7.00 K/mcL LAB HEMETOLOGY METHOD 02/24/2025 8:23 AM [facility] LAB Lymphocytes Absolute 1.56 1.00 - 5.00 K/mcL LAB HEMETOLOGY METHOD [facility] Monocytes Absolute 0.85 0.20 - 1.00 K/mcL LAB HEMETOLOGY METHOD 02/24/2025 8:23 AM [facility] LAB Eosinophils Absolute 0.26 0.00 - 0.50 K/mcL LAB HEMETOLOGY METHOD 02/24/2025 8:23 AM [facility] LAB Basophils Absolute 0.06 0.00 - 0.20 K/mcL LAB HEMETOLOGY METHOD 02/24/2025 8:23 AM [facility] LAB Immature Granulocytes Absolute 0.04(H) 0.00 - 0.03 K/mcL LAB HEMETOLOGY METHOD 02/24/2025 8:23 AM [facility] LAB Blood Venous blood specimen / Unknown Venipuncture / Unknown 02/24/2025 6:34 AM EDT 02/24/2025 7:50 AM EDT us Freeman Cerna MD LAB BLOOD ORDERABLES Final Resul t [facility] LAB [address] [place] [address], documented in this encounter Visit Diagnoses Diagnosis Other joint terminal attack controller (current) drug therapy documented in this encounter Care Teams Chemical Equipment Controller Relationship Specialty Start Date End Date Regan Hogue MD [address] [place] [address] Dr [address] [place], [place] PCP - General Internal Medicine 11/12/24 documented as of this encounter
--- OUTSIDE RECORDS SUMMARY | 2025-08-21 10:32 | XMS_ITS | Encounter Summary ---
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 LAB HEMETOLOGY METHOD 09/09/2024 10:01 AM EST [facility] ([facility]) [facility] LAB RBC 4.20(L) 4.50 - 5.50 M/[facility] LAB HEMETOLOGY METHOD 09/09/2024 10:01 AM [facility] LAB Hemoglobin 11.2(L) 13.5 - 17.5 g/dL LAB HEMETOLOGY METHOD 09/09/2024 10:01 AM [facility] LAB Hematocrit 37.2(L) 42.0 - 54.0 % LAB HEMETOLOGY METHOD 09/09/2024 10:01 AM [facility] LAB MCV 88.2 79.0 - 98.0 FL LAB HEMETOLOGY METHOD 09/09/2024 10:01 AM [facility] LAB MCH 26.5(L) 27.0 - 32.0 pcg LAB HEMETOLOGY METHOD 09/09/2024 10:01 AM [facility] LAB MCHC 30.1(L) 32.0 - 37.0 g/dL LAB HEMETOLOGY METHOD 09/09/2024 10:01 AM [facility] LAB RDW 15.7(H) 11.0 - 15.0 % LAB HEMETOLOGY METHOD 09/09/2024 10:01 AM [facility] LAB Platelets 147 130 - 400 K/mcL LAB HEMETOLOGY METHOD 09/09/2024 10:01 AM [facility] LAB MPV 12.8(H) 7.0 - 11.0 FL LAB HEMETOLOGY METHOD 09/09/2024 10:01 AM [facility] LAB NRBC 0.0 <1.0 % LAB HEMETOLOGY METHOD 09/09/2024 10:01 AM [facility] LAB NRBC Absolute 0.00 <0.10 K/mcL LAB HEMETOLOGY METHOD 09/09/2024 10:01 AM [facility] LAB Neutrophils Relative 72.6 % LAB HEMETOLOGY METHOD 09/09/2024 10:01 AM [facility] LAB Lymphocytes Relative 15.3 % LAB HEMETOLOGY METHOD 09/09/2024 10:01 AM [facility] LAB Monocytes Relative 8.9 % LAB HEMETOLOGY METHOD 09/09/2024 10:01 AM [facility] LAB Eosinophils Relative 2.0 % LAB HEMETOLOGY METHOD 09/09/2024 10:01 AM [facility] LAB Basophils Relative 0.6 % LAB HEMETOLOGY METHOD 09/09/2024 10:01 AM [facility] LAB Immature Granulocytes Relative 0.6 % LAB HEMETOLOGY METHOD 09/09/2024 10:01 AM [facility] LAB Neutrophils Absolute 5.08 1.50 - 7.00 K/mcL LAB HEMETOLOGY METHOD 09/09/2024 10:01 AM [facility] LAB Lymphocytes Absolute 1.07 1.00 - 5.00 K/mcL LAB HEMETOLOGY METHOD 09/09/2024 10:01 AM [facility] LAB Monocytes Absolute 0.62 0.20 - 1.00 K/mcL LAB HEMETOLOGY METHOD 09/09/2024 10:01 AM EST [facility] LAB Eosinophils Absolute 0.14 0.00 - 0.50 K/mcL LAB HEMETOLOGY METHOD 09/09/2024 10:01 AM [facility] LAB Basophils Absolute 0.04 0.00 - 0.20 K/mcL LAB HEMETOLOGY METHOD 09/09/2024 10:01 AM [facility] LAB Immature Granulocytes Absolute 0.04(H) 0.00 - 0.03 K/mcL LAB HEMETOLOGY METHOD 09/09/2024 10:01 AM [facility] LAB Blood Venous blood specimen / Unknown Venipuncture / Unknown 09/09/2024 6:39 AM EST 09/09/2024 9:46 AM EST us Freeman Cerna MD LAB BLOOD ORDERABLES Final Resul t [facility] LAB [address] [place], [place] [address] [phone] documented in this encounter Visit Diagnoses Diagnosis Other sectional belt mold 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
--- OUTSIDE RECORDS SUMMARY | 2025-08-21 10:32 | XMS_ITS | Encounter Summary ---
Author Organization [facility] Address [address] [place] [address] Care Team Providers Care It Network Administrator Name Role Phone Regan Hogue MD Primary Care Provider Encounter Details Date Type Department Care Team (Late st Contact Info) Description 11/04/2024 Lab Requisition [facility] - Main Lab 299 [facility] [place] [address] Freeman Cerna MD [address] Other terminal supervisor (current) drug therapy Social History [...] Routine 11/04/2024 6:33 AM EST Other terminal supervisor (current) drug therapy CBC AND DIFFERENTIAL Routine 11/04/2024 6:33 AM EST Other terminal supervisor (current) drug therapy documented in this encounter Results * (ABNORMAL) CBC auto differential (11/04/2024 6:33 AM EST) WBC 7.7 4.8 - 10.8 K/[facility] LAB HEMETOLOGY METHOD 11/04/2024 10:[address] [facility] ([facility]) [facility] LAB RBC 3.90(L) 4.50 - 5.50 M/[facility] LAB HEMETOLOGY METHOD 11/04/2024 10:21 AM [facility] [...] LAB HEMETOLOGY METHOD 11/04/2024 10:21 AM EST [facility] LAB Eosinophils Relative 1.8 % LAB HEMETOLOGY METHOD 11/04/2024 10:21 AM [facility] LAB Basophils Relative 0.7 % LAB HEMETOLOGY METHOD 11/04/2024 10:21 AM [facility] LAB Immature Granulocytes Relative 0.3 % LAB HEMETOLOGY METHOD 11/04/2024 10:21 AM EST [facility] LAB Neutrophils Absolute 5.46 1.50 - 7.00 K/mcL LAB HEMETOLOGY METHOD 11/04/2024 10:21 AM [facility] LAB Lymphocytes Absolute 1.32 1.00 - 5.00 K/mcL LAB HEMETOLOGY METHOD 11/04/2024 10:21 AM [facility] LAB Monocytes Absolute 0.70 0.20 - 1.00 K/mcL LAB HEMETOLOGY METHOD 11/04/2024 10:21 AM EST [facility] LAB Eosinophils Absolute 0.14 0.00 - 0.50 K/mcL LAB HEMETOLOGY METHOD 11/04/2024 10:21 AM [facility] LAB Basophils Absolute 0.05 0.00 - 0.20 K/mcL LAB HEMETOLOGY METHOD 11/04/2024 10:21 AM [facility] LAB Immature Granulocytes Absolute 0.02 0.00 - 0.03 K/mcL LAB HEMETOLOGY METHOD 11/04/2024 10:21 AM [facility] LAB Blood Venous blood specimen / Unknown Venipuncture / Unknown 11/04/2024 6:33 AM EST 11/04/2024 8:32 AM EST us Freeman Cerna MD LAB BLOOD ORDERABLES Final Resul t [facility] LAB [address] [place], [place] [address] [phone] documented in this encounter Visit Diagnoses Diagnosis Other skilled nursing (current) drug therapy documented in this encounter Care Teams It Network Administrator Relationship Specialty Start Date End Date Regan Hogue MD [address] [place] [address] [address] [place] PCP - General Internal Medicine 11/12/24 documented as of this encounter
--- OUTSIDE RECORDS SUMMARY | 2025-08-21 10:32 | XMS_ITS | Encounter Summary ---
Author Organization [facility] Address [address] [place] [address] Care Team Providers Care Pharmaceutical Process Engineer Name Role Phone Regan Hogue MD Primary Care Provider Encounter Details Date Type Department Care Team (Late st Contact Info) Description 12/02/[address] [facility] - Main Lab 299 [facility] [employer] [place] 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
--- OUTSIDE RECORDS SUMMARY | 2025-08-21 10:32 | XMS_ITS | Encounter Summary ---
Author Organization [facility] Address [address] [place] [address] Care Team Providers Care Pantograph Engraver Name Role Phone Regan Hogue MD Primary Care Provider Encounter Details Date Type Department Care Team (Late st Contact Info) Description 03/24/[address] [facility] - Main Lab [address] [place] [address] Freeman Cerna MD [address] Other computer terminal operator (current) drug therapy Social History Tobacco [...] DIFFERENTIAL Routine 03/24/2025 8:28 AM EDT Other computer terminal operator (current) drug therapy CBC AND DIFFERENTIAL Routine 03/24/2025 8:28 AM EDT Other computer terminal operator (current) drug therapy documented in this encounter Results * (ABNORMAL) CBC auto differential (03/24/2025 8:28 AM EDT) WBC 9.6 4.8 - 10.8 K/[facility] LAB HEMETOLOGY METHOD 03/24/2025 10:53 AM EDT [facility] LAB RBC 4.30(L) 4.50 - 5.50 M/[facility] LAB HEMETOLOGY METHOD 03/24/2025 10:53 AM [facility] LAB Hemoglobin 10.1(L) 13.5 - 17.5 g/dL LAB HEMETOLOGY METHOD 03/24/2025 10:53 AM [facility] LAB Hematocrit 35.3(L) 42.0 - 54.0 % LAB HEMETOLOGY METHOD 03/24/2025 10:53 AM [facility] LAB MCV 82.3 79.0 - 98.0 FL LAB HEMETOLOGY METHOD 03/24/2025 10:53 AM [facility] LAB MCH 23.5(L) 27.0 - 32.0 pcg LAB HEMETOLOGY METHOD 03/24/2025 10:53 AM [facility] LAB MCHC 28.6(L) 32.0 - 37.0 g/dL LAB HEMETOLOGY METHOD 03/24/2025 10:53 AM [facility] LAB RDW 18.7(H) 11.0 - 15.0 % LAB HEMETOLOGY METHOD 03/24/2025 10:53 AM [facility] LAB Platelets 139 130 - 400 K/mcL LAB HEMETOLOGY METHOD 03/24/2025 10:53 AM [facility] LAB MPV LAB HEMETOLOGY METHOD 03/24/2025 10:53 AM [facility] LAB Comment:Not Measured NRBC 0.0 <1.0 % LAB HEMETOLOGY METHOD 03/24/2025 10:53 AM [facility] LAB NRBC Absolute 0.00 <0.10 K/mcL LAB HEMETOLOGY METHOD 03/24/2025 10:53 AM [facility] LAB Neutrophils Relative 77.5 % LAB HEMETOLOGY METHOD 03/24/2025 10:53 AM [facility] LAB Lymphocytes Relative 11.7 % LAB HEMETOLOGY METHOD 03/24/2025 10:53 AM [facility] LAB Monocytes Relative 9.8 % LAB HEMETOLOGY METHOD 03/24/2025 10:53 AM EDT [facility] LAB Eosinophils Relative 0.2 % LAB HEMETOLOGY METHOD 03/24/2025 10:53 AM EDT [facility] LAB Basophils Relative 0.1 % LAB HEMETOLOGY METHOD 03/24/2025 10:53 AM EDT [facility] LAB Immature Granulocytes Relative 0.7 % LAB HEMETOLOGY METHOD 03/24/2025 10:53 AM EDT [facility] LAB Neutrophils Absolute 7.39(H) 1.50 - 7.00 K/mcL LAB HEMETOLOGY METHOD 03/24/2025 10:53 AM [facility] LAB Lymphocytes Absolute 1.12 1.00 - 5.00 K/mcL LAB HEMETOLOGY METHOD 03/24/2025 10:53 AM EDT [facility] LAB Monocytes Absolute 0.94 0.20 - 1.00 K/mcL LAB HEMETOLOGY METHOD 03/24/2025 10:53 AM T [facility] LAB Eosinophils Absolute 0.02 0.00 - 0.50 K/mcL LAB HEMETOLOGY METHOD 03/24/2025 10:[facility] Basophils Absolute 0.01 0.00 - 0.20 K/mcL LAB HEMETOLOGY METHOD 03/24/2025 10:53 AM EDT [facility] LAB Immature Granulocytes Absolute 0.07(H) 0.00 - 0.03 K/mcL LAB HEMETOLOGY METHOD 03/24/2025 10:53 AM [facility] LAB Blood Venous blood specimen / Unknown Venipuncture / Unknown 03/24/2025 8:28 AM EDT 03/24/2025 10:22 AM EDT us Freeman Cerna MD LAB BLOOD ORDERABLES Final Resul t [facility] LAB [address] [place] [address], documented in this encounter Visit Diagnoses Diagnosis Other computer terminal operator (current) drug therapy documented in this encounter Care Teams Pantograph Engraver Relationship Specialty Start Date End Date Regan Hogue MD [address] [place] [address] Dr [address] [place], [place] PCP - General Internal Medicine 11/12/24 documented as of this encounter
--- OUTSIDE RECORDS SUMMARY | 2025-08-21 10:32 | XMS_ITS | Clinical Summary ---
Author Organization [address] [facility] Address [address] [place] [address] Phone Care Team Providers Care Machinist Tool And Die Name Role Phone Regan Hogue MD Primary Care Provider Encounters Date Type Department Care Team Description 08/10/2025 Lab Requisition [facility] Lab [address] [place] [address] Amara Trivedi NP Other mcfp (current) drug therapy 07/24/2025 Lab Requisition [facility] Lab [address] [place] [address] Freeman Cerna MD Other mcfp (current) drug [...] Depression Screening 10/08/2024 COVID-19 Vaccine (1 - 2024-2 6 season) 2025 Influenza Vaccine (#1) 2025 HIB [...] DIFFERENTIAL Routine 08/11/2025 7:15 AM EST Other mcfp (current) drug therapy CBC AND DIFFERENTIAL Routine 08/11/2025 7:15 AM EST Other mcfp (current) drug therapy CBC WITH AUTO DIFFERENTIAL Routine 07/24/2025 9:06 AM EDT Other mcfp (current) drug therapy CBC AND DIFFERENTIAL Routine 07/24/2025 9:06 AM EDT Other parts counterman (current) drug therapy from Last 3 Months Results * (ABNORMAL) CBC auto differential (08/11/2025 7:15 AM EST) Only the most recent of2 resultswithin the time period is included. WBC 9.4 4.8 - 10.8 K/mcL LAB HEMETOLOGY METHOD 08/11/2025 1:17 PM EST [facility] LAB RBC 4.10(L) 4.50 - 5.50 M/mcL LAB HEMETOLOGY METHOD 08/11/2025 1:17 PM EST [facility] LAB Hemoglobin 10.6(L) 13.5 - 17.5 g/dL LAB HEMETOLOGY METHOD 08/11/2025 1:17 PM [facility] LAB Hematocrit 35.5(L) 42.0 - 54.0 % LAB HEMETOLOGY METHOD 08/11/2025 1:17 PM [facility] LAB MCV 86.0 79.0 - 98.0 FL LAB HEMETOLOGY METHOD 08/11/2025 1:17 PM [facility] LAB MCH 25.7(L) 27.0 - 32.0 pcg LAB HEMETOLOGY METHOD 08/11/2025 1:17 PM [facility] LAB MCHC 29.9(L) 32.0 - 37.0 g/dL LAB HEMETOLOGY METHOD 08/11/2025 1:17 PM [facility] LAB RDW 19.5(H) 11.0 - 15.0 % LAB HEMETOLOGY METHOD 08/11/2025 1:17 PM [facility] LAB Platelets 138 130 - 400 K/mcL LAB HEMETOLOGY METHOD 08/11/2025 1:17 PM [facility] LAB MPV 12.3(H) 7.0 - 11.0 FL LAB HEMETOLOGY METHOD 08/11/2025 1:17 PM [facility] LAB NRBC 0.0 <1.0 % LAB HEMETOLOGY METHOD 08/11/2025 1:17 PM [facility] LAB NRBC Absolute 0.00 <0.10 K/mcL LAB HEMETOLOGY METHOD 08/11/2025 1:17 PM [facility] LAB Neutrophils Relative 78.4 % LAB HEMETOLOGY METHOD 08/11/2025 1:17 PM [facility] LAB Lymphocytes Relative 12.7 % LAB HEMETOLOGY METHOD 08/11/2025 1:17 PM [facility] LAB Monocytes Relative 7.4 % LAB HEMETOLOGY METHOD 08/11/2025 1:17 PM EST [facility] LAB Eosinophils Relative 0.6 % LAB HEMETOLOGY METHOD 08/11/2025 1:17 PM [facility] LAB Basophils Relative 0.3 % LAB HEMETOLOGY METHOD 08/11/2025 1:17 PM [facility] LAB Immature Granulocytes Relative 0.6 % LAB HEMETOLOGY METHOD 08/11/2025 1:17 PM [facility] LAB Neutrophils Absolute 7.34(H) 1.50 - 7.00 K/mcL LAB HEMETOLOGY METHOD 08/11/2025 1:17 PM [facility] LAB Lymphocytes Absolute 1.19 1.00 - 5.00 K/mcL LAB HEMETOLOGY METHOD 08/11/2025 1:17 PM [facility] LAB Monocytes Absolute 0.69 0.20 - 1.00 K/mcL LAB HEMETOLOGY METHOD 08/11/2025 1:17 PM EST [facility] LAB Eosinophils Absolute 0.06 0.00 - 0.50 K/mcL LAB HEMETOLOGY METHOD 08/11/2025 1:17 PM [facility] LAB Basophils Absolute 0.03 0.00 - 0.20 K/mcL LAB HEMETOLOGY METHOD 08/11/2025 1:17 PM [facility] LAB Immature Granulocytes Absolute 0.06(H) 0.00 - 0.03 K/mcL LAB HEMETOLOGY METHOD 08/11/2025 1:17 PM [facility] LAB Blood Venous blood specimen / Unknown Venipuncture / Unknown 08/11/2025 7:15 AM EST 08/11/2025 10:02 AM EST us Amara Trivedi NP LAB BLOOD ORDERABLES Final R esult [facility] LAB [address] [place] [address], from Last 3 Months Insurance MEDICAID - [place] MEDICARE [employer] MEDICARE Care Teams Machinist Tool And Die Relationship Specialty Start Date End Date Regan Hogue MD [address] [place] [address] [address] [place] PCP - General Internal Medicine 11/12/24
--- OUTSIDE RECORDS SUMMARY | 2025-08-21 10:33 | XMS_ITS | Encounter Summary ---
Author Organization [facility] Address [address] [place] [address] Care Team Providers Care Dry Cleaner Hand Name Role Phone Regan Hogue MD Primary Care Provider Encounter Details Date Type Department Care Team (Late st Contact Info) Description 07/24/2025 Lab Requisition [facility] - Main Lab [address] [facility] [place] [address] Freeman Cerna MD [address] Other intermodal customer service (current) drug therapy Social History Tobacco Use [...] DIFFERENTIAL Routine 07/24/2025 9:06 AM EDT Other intermodal customer service (current) drug therapy CBC AND DIFFERENTIAL Routine 07/24/2025 9:06 AM EDT Other intermodal customer service (current) drug therapy documented in this encounter Results * (ABNORMAL) CBC auto differential (07/24/2025 9:06 AM EDT) WBC 7.6 4.8 - 10.8 K/[facility] LAB HEMETOLOGY METHOD 07/24/2025 10:02 AM EDT [facility] LAB RBC 4.70 4.50 - 5.50 M/[facility] LAB HEMETOLOGY METHOD 07/24/2025 10:02 AM [facility] LAB Hemoglobin 11.5(L) 13.5 - 17.5 g/dL LAB HEMETOLOGY METHOD 07/24/2025 10:02 AM [facility] LAB Hematocrit 37.8(L) 42.0 - 54.0 % LAB HEMETOLOGY METHOD 07/24/2025 10:02 AM [facility] LAB MCV 81.3 79.0 - 98.0 FL LAB HEMETOLOGY METHOD 07/24/2025 10:02 AM [facility] LAB MCH 24.7(L) 27.0 - 32.0 pcg LAB HEMETOLOGY METHOD 07/24/2025 10:02 AM [facility] LAB MCHC 30.4(L) 32.0 - 37.0 g/dL LAB HEMETOLOGY METHOD 07/24/2025 10:02 AM [facility] LAB RDW 18.2(H) 11.0 - 15.0 % LAB HEMETOLOGY METHOD 07/24/2025 10:02 AM [facility] LAB Platelets 136 130 - 400 K/mcL LAB HEMETOLOGY METHOD 07/24/2025 10:02 AM [facility] LAB MPV LAB HEMETOLOGY METHOD 07/24/2025 10:02 AM [facility] LAB Comment:Not Measured NRBC 0.0 <1.0 % LAB HEMETOLOGY METHOD 07/24/2025 10:02 AM [facility] LAB NRBC Absolute 0.00 <0.10 K/mcL LAB HEMETOLOGY METHOD 07/24/2025 10:02 AM [facility] LAB Neutrophils Relative 78.3 % LAB HEMETOLOGY METHOD 07/24/2025 10:02 AM [facility] LAB Lymphocytes Relative 11.5 % LAB HEMETOLOGY METHOD 07/24/2025 10:02 AM [facility] LAB Monocytes Relative 7.6 % LAB HEMETOLOGY METHOD 07/24/2025 10:02 AM EDT [facility] LAB Eosinophils Relative 1.6 % LAB HEMETOLOGY METHOD 07/24/2025 10:02 AM [facility] LAB Basophils Relative 0.5 % LAB HEMETOLOGY METHOD 07/24/2025 10:02 AM EDT [facility] LAB Immature Granulocytes Relative 0.5 % LAB HEMETOLOGY METHOD 07/24/2025 10:02 AM EDT [facility] LAB Neutrophils Absolute 5.96 1.50 - 7.00 K/mcL LAB [facility]OLOGY [facility] Lymphocytes Absolute 0.88(L) 1.00 - 5.00 K/mcL LAB HEMETOLOGY METHOD [facility] Monocytes Absolute 0.58 0.20 - 1.00 K/mcL LAB HEMETOLOGY METHOD 07/24/2025 10:02 AM [facility] LAB Eosinophils Absolute 0.12 0.00 - 0.50 K/mcL LAB HEMETOLOGY METHOD 07/24/2025 10:02 AM [facility] LAB Basophils Absolute 0.04 0.00 - 0.20 K/mcL LAB HEMETOLOGY METHOD 07/24[facility]25 [facility] Immature Granulocytes Absolute 0.04(H) 0.00 - 0.03 K/mcL LAB HEMETOLOGY METHOD 07/24/2025 10:02 AM [facility] LAB Blood Venous blood specimen / Unknown Venipuncture / Unknown 07/24/2025 9:06 AM EDT 07/24/2025 9:47 AM EDT us Freeman Cerna MD LAB BLOOD ORDERABLES Final Resul t [facility] LAB [address] [place] [address], documented in this encounter Visit Diagnoses Diagnosis Other intermodal customer service (current) drug therapy documented in this encounter Care Teams Dry Cleaner Hand Relationship Specialty Start Date End Date Regan Hogue MD [address] [place] [address] [address] [place], [place] PCP - General Internal Medicine 11/12/24 documented as of this encounter
--- OUTSIDE RECORDS SUMMARY | 2025-08-21 10:33 | XMS_ITS | Encounter Summary ---
Author Organization [facility] Address [address] [place] [address] Care Team Providers Care Anchor Operator Name Role Phone Regan Hogue MD Primary Care Provider Encounter Details Date Type Department Care Team (Late st Contact Info) Description 12/30/2024 Lab Requisition [facility] - Main Lab [address] [facility] [place] [address] Freeman Cerna MD [address] Other termite inspector (current) drug therapy Social History Tobacco Use [...] DIFFERENTIAL Routine 12/30/2024 11:06 AM EDT Other fci (current) drug therapy CBC AND DIFFERENTIAL Routine 12/30/2024 11:06 AM EDT Other fci (current) drug therapy documented in this encounter Results * (ABNORMAL) CBC auto differential (12/30/2024 11:06 AM EDT) WBC 7.1 4.8 - 10.8 K/[facility] LAB HEMETOLOGY METHOD 12/30/2024 12:46 PM EDT [facility] LAB RBC 4.70 4.50 - 5.50 M/[facility] LAB HEMETOLOGY METHOD 12/30/2024 12:46 PM [facility] LAB Hemoglobin 11.5(L) 13.5 - 17.5 g/dL LAB HEMETOLOGY METHOD [facility]24 [facility] Hematocrit 38.8(L) 42.0 - 54.0 % LAB HEMETOLOGY METHOD 12/30/2024 12:46 PM [facility] LAB MCV 83.3 79.0 - 98.0 FL LAB HEMETOLOGY METHOD 12/30/2024 12[facility] MCH 24.7(L) 27.0 - 32.0 pcg LAB HEMETOLOGY METHOD 12/30/2024 12:46 PM [facility] LAB MCHC 29.6(L) 32.0 - 37.0 g/dL LAB HEMETOLOGY METHOD 12/30/2024 12:46 PM [facility] LAB RDW 16.1(H) 11.0 - 15.0 % LAB HEMETOLOGY METHOD 12/30/2024 12:46 PM [facility] LAB Platelets 183 130 - 400 K/mcL LAB HEMETOLOGY METHOD 12/30/2024 12:46 PM [facility] LAB MPV 11.9(H) 7.0 - 11.0 FL LAB HEMETOLOGY METHOD 12/30/2024 12:46 PM [facility] LAB NRBC 0.0 <1.0 % LAB HEMETOLOGY METHOD 12/30/2024 12:46 PM [facility] LAB NRBC Absolute 0.00 <0.10 K/mcL LAB HEMETOLOGY METHOD 12/30/2024 12:46 PM [facility] LAB Neutrophils Relative 78.9 % LAB HEMETOLOGY METHOD 12/30/2024 12:46 PM [facility] LAB Lymphocytes Relative 12.3 % LAB HEMETOLOGY METHOD 12/30/2024 12:46 PM EDT [facility] LAB Monocytes Relative 6.2 % LAB HEMETOLOGY METHOD 12/30/2024 12:46 [facility] Eosinophils Relative 1.4 % LAB HEMETOLOGY METHOD 12/30/2024 12:46 PM [facility] LAB Basophils Relative 0.6 % LAB HEMETOLOGY METHOD 12/30/2024 12:46 PM [facility] LAB Immature Granulocytes Relative 0.6 % LAB HEMETOLOGY METHOD 12/30/2024 12:46 PM [facility] LAB Neutrophils Absolute 5.57 1.50 - 7.00 K/mcL LAB HEMETOLOGY METHOD 12/30/2024 12:46 PM [facility] LAB Lymphocytes Absolute 0.87(L) 1.00 - 5.00 K/mcL LAB HEMETOLOGY METHOD 12/30/2024 12:46 [facility] Monocytes Absolute 0.44 0.20 - 1.00 K/mcL LAB HEMETOLOGY METHOD 12/30/2024 12:46 PM [facility] LAB Eosinophils Absolute 0.10 0.00 - 0.50 K/mcL LAB HEMETOLOGY METHOD 12/30/2024 12:46 PM [facility] LAB Basophils Absolute 0.04 0.00 - 0.20 K/mcL LAB HEMETOLOGY METHOD 12/30/2024 12:46 PM [facility] LAB Immature Granulocytes Absolute 0.04(H) 0.00 - 0.03 K/mcL LAB HEMETOLOGY METHOD 12/30/2024 12:46 PM [facility] LAB Blood Venous blood specimen / Unknown Venipuncture / Unknown 12/30/2024 11:06 AM EDT 12/30/2024 12:12 PM EDT us Freeman Cerna MD LAB BLOOD ORDERABLES Final Resul t [facility] LAB [address] [place] [address], documented in this encounter Visit Diagnoses Diagnosis Other fci (current) drug therapy documented in this encounter Care Teams Anchor Operator Relationship Specialty Start Date End Date Regan Hogue MD [address] [place] [address] Dr [address] [place] PCP - General Internal Medicine 11/12/24 documented as of this encounter
== END 2025-08-21 10:01 | disposition home or self-care (01) ==
LOC: HO.HMCH 09:33
PROVIDERS: PCP Internal Medicine; Visit Provider Nurse Practitioner Family
DX: I50.9 Heart failure, unspecified (principal)

== ENCOUNTER → 2025-08-21 09:32 | Outpatient (BNVA) | payer MEDICARE, MEDICAID, SELFPAY | PROVIDERS: PCP Internal Medicine; Visit Provider Nurse Practitioner Family | DX: I11.0 Hypertensive heart disease with heart failure (principal); J44.9 Chronic obstructive pulmonary disease, unspecified; E11.9 Type 2 diabetes mellitus without complications; R09.02 Hypoxemia; I50.9 Heart failure, unspecified; Z99.81 Dependence on supplemental oxygen; Z87.891 Personal history of nicotine dependence | CPT/HCPCS: 99495 ==

== ENCOUNTER 2025-09-10 10:53 | Outpatient (AMB) | payer MEDICARE, MEDICAID, SELFPAY ==
--- NOTE | 2025-09-10 11:03 | MHC.PC.OV ---
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 Engine: Present Accompanied by: Self / Same As Patient Allergies lithium ([place]) Allergy (Severe, Verified 09/13/25 15:08) Toxicity thiothixene Allergy (Severe, Verified 09/13/25 15:08) Swelling amoxicillin Allergy (Mild, Verified 09/13/25 15:08) Nose Bleed benztropine Allergy (Unknown, Verified 09/13/25 15:08) benztropine mesylate- unknown gabapentin (From NEURONTIN) Allergy (Unknown, Verified 09/13/25 15:08) Unknown fluphenazine (From Prolixin) Allergy (Verified 09/13/25 15:08) Unknown metformin Allergy (Verified 09/13/25 15:08) Anaphylaxis barium sulfate (BARIUM SULFATE) Adverse Reaction (Intermediate, Verified 09/13/25 15:08) Nausea and Vomiting haloperidol Adverse Reaction (Intermediate, Verified 09/13/25 15:08) Muscle tension in legs diphenhydramine (From Benadryl) Adverse Reaction (Unknown, Verified 09/13/25 15:08) urinary retention Medication List - Last Reconciled 09/13/25 by Regan Hogue MD acetaminophen ER 650 mg PO Q6H PRN albuterol sulfate 90 mcg/actuation 2 puffs inhalation Q6H PRN 30 days alum-mag hydroxide-simeth 200-200-20 mg/5 mL 10 mL PO Q8H PRN aspirin 81 mg PO DAILY atorvastatin 20 mg PO BEDTIME blood sugar diagnostic (Contour Next Test Strips) As directed- BID blood-glucose meter (Contour Next Gen Meter) As directed- BID cholecalciferol (vitamin D3) 25 mcg PO DAILY clozapine 75 mg PO BEDTIME clozapine 100 mg PO BEDTIME docusate sodium 100 mg PO BID empagliflozin (Jardiance) 5 mg PO DAILY furosemide 40 mg PO DAILY insulin glargine (Lantus Solostar U-100 Insulin) 15 units subcut DAILY lancets (E-Z Ject Lancets) As directed- BID linagliptin 5 mg PO DAILY lurasidone (Latuda) 60 mg PO BEDTIME metoprolol succinate ER 100 mg PO DAILY nicotine (polacrilex) 4 mg buccal Q2H PRN 30 days nitroglycerin 0.4 mg sublingual Q5M PRN omeprazole 40 mg (2 x 20 mg) PO BID@0630,1630 pen needle, diabetic (BD Erica 2nd Gen Pen Needle) As directed to administer lantus insulin once daily polyethylene glycol 3350 (Miralax) 17 grams PO DAILY PRN sennosides-docusate sodium 8.6-50 mg (Senna Plus) 2 tabs PO DAILY 30 days trazodone 100 mg PO BEDTIME Tobacco use date assessed: 09/10/25 Dental Screening Dental Screen Date: 09/10/25 Did you have a dental visit in the last 12 months?: No Did you have a dental problem in the last 6 months where you did not have access to dental care?: No Was dental information given to patient?: No HPI Follow up - see comments HPI Details Patient is a 60 year old male presenting for follow-up on his chronic medical conditions. He reportedly experienced a dizzy spell and passed out briefly about two days ago. His medical history is significant for heart and kidney problems, diabetes, hyperlipidemia, HTN and JUDY The patient was recently discharged from the hospital and had a follow-up visit with a nurse practitioner. He has home oxygen but reports he is not using it He does not seem to have any insight on his cardiac condition as he keeps responding with I don't know often when asked questions regarding his medical issues He admits to feeling shortness of breath at rest and with activity - he has COPD and was admitted briefly back in March 2025 for COPD exacerbation and again last month for what appears to be both COPD exacerbation and CHF exacerbation States that he wears oxygen when doing things around his apartment and during the night but he is not wearing any oxygen at this visit He denies having chest discomfort at rest or with activity. He has upcoming appointments with urology on October 14 and with pulmonology on October 29 early next year His recent hemoglobin A1c was 9, an improvement from 10.6 in May, though it remains elevated. He has not been seen by the diabetes clinic since November 07, 2024 He had some labs done last month when he was admitted to [facility] but did not get his previously ordered follow up labs done prior to his appointment today [facility] Medical History (Updated 09/10/25 @ 11:53 by Regan Hogue MD) Diabetes mellitus HOCM (hypertrophic obstructive cardiomyopathy) Vertigo Nocturnal hypoxemia Schizoaffective disorder, bipolar type Diabetic neuropathy Type II diabetes with fdc use of insulin BPH (benign prostatic hyperplasia) Diabetes mellitus Essential hypertension Coronary artery disease Osteoarthritis GERD without esophagitis Vitamin D deficiency Congestive heart failure COVID-19 Thought disorder Constipation COPD (chronic obstructive pulmonary disease) Smoker Diabetes mellitus Obesity (BMI 30-39.9) Pure hypercholesterolemia Prolonged QT interval Aggression Hypertension CHF (congestive heart failure) Cardiac arrhythmia Myocardial infarction Surgical History History of colonoscopy History of ankle surgery History of intestinal surgery History of transurethral resection of prostate Family History Father Medical history unknown Mother Medical history unknown Sister Alive and well Social History Household Members: Friend(s) Household Members Other:: Room mate Housing: Apartment Housing Other:: [facility] Do you presently have visiting nurse or other home services: Yes ([facility]) Alcohol intake: current Alcohol intake frequency: holidays/special occasions only Alcohol type: beer Comment: assist with portable o2 Patient Tobacco Use Status: Former Tobacco user Tobacco use type: Cigarette Cigarette Packs Per Day: 0.5 Cigarettes Per Day: 10 Years Smoked: Many e-Cigarette/Vaping Use: Currently Using Second Hand Smoke Exposure: Yes Substance Use Type: Unknown Advance Directives Date on File: 01/14/24 service: No Current occupational status: disabled Sexual orientation: Straight/Heterosexual Cognitive needs: Yes Hearing needs: No Vision needs: Yes Questionnaire PHQ-9 Over the last 2 weeks, how often have you been bothered by any of the following problems? 1. Little interest or pleasure in doing things: nearly every day 2. Feeling down, depressed, or hopeless: several days 3. Trouble falling or staying asleep, or sleeping too much: nearly every day 4. Feeling tired or having little energy: not at all 5. Poor appetite or overeating: nearly every day 6. Feeling bad about yourself - or that you are a failure or have let yourself or your family down: nearly every day 7. Trouble concentrating on things, such as reading the newspaper or watching television: several days 8. Moving or speaking so slowly that other people could have noticed. Or the opposite - being so fidgety or restless that you have been moving around a lot more than usual: not at all 9. Thoughts that you would be better off or of hurting yourself in some way: not at all Total score: 14 Depression Screening Interpretation: Positive Depression Screening Follow-up: Existing condition and In treatment Depression Screening Done: Yes 09490 - PHQ-9 Billing: Yes Source: Developed by Drs. Ga Richard, Rosio Grigsby, Jose Johnson and colleagues, with an educational lulu from [email or web address]. Thrive Questionnaire Date Thrive assessed: 09/10/25 I am a: Patient What is your living situation today?: I have a steady place to live Within the past 12 months, did the food you bought not last and you didn't have the money to get more?: Often true Within the past 12 months, did you worry whether your food would run out before you got money to buy more?: Often true Do you have trouble paying for medicines?: No Do you have trouble getting transportation to medical appointments?: Yes Do you have trouble paying your heating and electricity bill?: Yes Do you have trouble taking care of your child, family member or friend?: No Do you have trouble with day-to-day activities such as bathing, preparing meals, shopping, managing finances, etc.?: No Are you currently unemployed and looking for a job?: No Are you interested in more education?: No Please select the resources that you would like help with: Care for elder or disabled Currently or been in a relationship where the following occur: No concerns reported THRIVE Score: 4 AUDIT C Alcohol Use Questionnaire (AUDIT-C) 1. How often do you have a drink containing alcohol?: Monthly or less 2. How many drinks containing alcohol do you have on a typical day when you are drinking?: 1 or 2 3. How often do you have six or more drinks on one occasion?: Less than monthly Total Score: 2 Score Reviewed/Action Taken: Yes LINN-7 AMB Questionnaire LINN-7 Date LINN - 7 assessed: 12/04/25 Feeling nervous, anxious, or on edge: 0 = Not at all Not being able to stop or control worryin = Not at all Worrying too much about different things: 0 = Not at all Trouble relaxin = Not at all Being so restless that it is hard to sit still: 0 = Not at all Becoming easily annoyed or irritable: 0 = Not at all Feeling afraid as if something awful might happen: 0 = Not at all Total LINN-7 score (0-4 normal; 5-9 mild; 10-14 moderate; 15-21 severe): 0 Source: Developed by Drs. Ga Richard, Rosio Grigsby, Jose Johnson and colleagues, with an educational lulu from [email or web address]. Review of Systems Const Denies chills, Reports fatigue, Denies fever(s) and Denies headache(s) ENT Denies dysphagia, Denies dizziness, Denies otalgia, Denies headache(s), Denies neck pain, Denies odynophagia and Denies sore throat Card Denies chest pain, Denies palpitations and Reports dyspnea on exertion Resp Denies chest congestion, Denies cough, Reports dyspnea on exertion and Denies wheezing GI Denies abdominal pain, Reports constipation (on and off), Denies dysphagia, Denies heartburn, Denies diarrhea, Denies nausea, Denies odynophagia and Denies vomiting Denies difficulty urinating, Denies dysuria, Denies nocturia and Denies urinary frequency Musc Denies back pain, Reports arthralgias (involving both knees, ankles and feet) and Denies neck pain Skin/Breast Denies rash Neuro Denies dizziness and Denies headache(s) Endo Reports fatigue and Denies palpitations Aller/Immun Denies wheezing Physical exam (Primary Care) Vital Signs: Last Vital Signs Pulse 88 09/10/25 11:04 BP 130/84 09/10/25 11:04 Pulse Ox 93 09/10/25 11:04 Oxygen Delivery Method Room Air 09/10/25 11:04 BMI result Body Mass Index 36.5 Tobacco/Smoking Status: Tobacco use Status Tobacco use date assessed 09/10/25 09/10/25 11:11 Patient Tobacco Use Status Former Tobacco user 09/10/25 11:11 Tobacco use type Cigarette 09/10/25 11:11 e-Cigarette/Vaping Use Currently Using 09/10/25 11:11 PHQ-9: PHQ-9 Score PHQ-9: Total score 14 09/10/25 11:54 Depression Screening Interpretation: Positive Depression Screening Follow-up: Existing condition and In treatment Thrive Assessment: Date of Thrive Assessment Date Thrive assessed 09/10/25 09/10/25 11:11 Currently or been in a relationship where the following occur: No concerns reported Const General: no acute distress and alert HENMT Ears: TM's normal bilaterally and EAC's normal Throat: Yes posterior oropharynx normal and Yes tonsils normal (no TP congestion noted) Neck Neck: Yes supple and No lymphadenopathy Thyroid: Thyroid normal Resp Auscultation: clear to auscultation bilaterally, no rales and no wheezes Cardio Rate: regular rate Rhythm: regular rhythm Heart sounds: Murmur heart sound present systolic mid, soft and at the left sternal border GI Palpation (GI): Soft to palpation and nontender Auscultation: normal bowel sounds General: Yes no CVA tenderness Back/Spine/Pelvis Back: no CVA tenderness Thoracic/Lumbar Spine: No lumbar spinal tenderness Skin Rashes: no rashes Extrem General: Yes no clubbing, cyanosis or edema Coding Level of Care Code Est Pt Level 4 (71648) Diagnoses Type 2 diabetes mellitus without complication, with long-term current use of insulin E11.9; Z79.4 Diabetes mellitus type: type 2 Diabetes mellitus director long term care insulin use: with fdc use Diabetes mellitus complication status: without complication Pure hypercholesterolemia E78.00 Coronary artery disease of [place] artery of [place] heart with stable angina pectoris I25.118 Coronary Disease-Associated Artery/Lesion type: [place] artery [place] vs. transplanted heart: [place] heart Associated angina: with stable angina HOCM (hypertrophic obstructive cardiomyopathy) I42.1 Prolonged QT interval R94.31 Essential hypertension I10 Vitamin D deficiency E55.9 Constipation, unspecified constipation type K59.00 Constipation type: unspecified constipation type GERD without esophagitis K21.9 Osteoarthritis of multiple joints, unspecified osteoarthritis type M15.9 Osteoarthritis location: multiple joints Osteoarthritis type: unspecified JUDY (obstructive sleep apnea) G47.33 Benign prostatic hyperplasia with urinary frequency N40.1; R35.0 Lower urinary tract symptom presence: symptoms present Lower urinary tract symptom detail: urinary frequency Hypogonadism in male E29.1 Schizoaffective disorder, bipolar type F25.0 Schizoaffective disorder type: bipolar Smoker F17.200 Obesity (BMI 30-39.9) E66.9 Additional Codes PHQ-9 - 26890 - PHQ-9 Billing: Yes ([id number]) Assessment & Plan Assessment & Plan (1) Diabetes mellitus: Code(s): E11.9 - Type 2 diabetes mellitus without complications Category: Medical Qualifiers: Diabetes mellitus type: type 2 Diabetes mellitus fdc insulin use: with fdc use Diabetes mellitus complication status: without complication Qualified Code(s): E11.9 - Type 2 diabetes mellitus without complications; Z79.4 - superintendent container 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 of 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 Plan: His in-office HgbA1c done today is at 9.0% (was previously at 10.3% a few months ago) - goal is at least < 7.0% Reinforced diabetic diet He used to be on Metformin ER 500 mg QD and Tradjenta 5 mg QD but these were stopped last year when he had JUHI He is currently on Admelog Q AC and HS per sliding scale and Lantus 15 units Q HS He was started as well on Jardiance 5 mg QD Will recheck his labs and HgbA1c in 3 months for follow up He was last seen by the diabetes clinic back on 11/07/2024 so we will refer him back to endocrinology for management of his diabetes, especially since his glycemic control over the past few months has been steadily getting worse (2) Pure hypercholesterolemia: Code(s): E78.00 - Pure hypercholesterolemia, unspecified Category: Medical Plan: He had some labs done last month when he was admitted at [facility] but these were non-fasting labs so he has not had his cholesterol levels rechecked since May 2025 Reinforced low cholesterol diet Continue Atorvastatin 20 mg QD Will recheck his labs and fasting lipids in 4 months for follow up (3) Coronary artery disease: Code(s): I25.10 - Atherosclerotic heart disease of [place] coronary artery without angina pectoris Category: Medical Qualifiers: Coronary Disease-Associated Artery/Lesion type: [place] artery [place] vs. transplanted heart: [place] heart Associated angina: with stable angina Qualified Code(s): I25.118 - Atherosclerotic heart disease of [place] coronary artery with other forms of angina pectoris Plan: Continue Aspirin 81 mg QD Follow up with cardiology as scheduled (4) HOCM (hypertrophic obstructive cardiomyopathy): Code(s): I42.1 - Obstructive hypertrophic cardiomyopathy Category: Medical Plan: He has a slight outflow tract murmur heard - could be from LVOT obstruction - treatment will reportedly be very limited mainly because of his psychiatric issues, per cardiology Follow up echocardiogram done in October 2023 revealed normal left ventricular cavity size, with severely increased left ventricular wall thickness. The left ventricular systolic function is hyperdynamic and visually estimated ejection fraction is >70%, with (+) dynamic LVOT obstruction noted. No obvious CON seen as before. His resting LVOT peak gradient 40 mm Hg, post valsalva 123 mm Hg - this is significantly worse than previous study. Right ventricular cavity size and systolic function are normal. The left atrium is severely dilated, with mildly elevated right atrial pressure and mild dilatation of the sinuses of Valsalva measuring 4.00 cm and mild dilatation of the ascending aorta measuring 3.9 cm. Holter monitor done previously came out normal with no PVCs or NSVT? Patient also had cardiac catheterization done back in 2016 that showed normal coronary arteries A more recent echocardiogram done in May 2025 revealed (+) hyperdynamic LV ejection fraction of greater than 70% with moderate diffuse hypertrophy with severe asymmetric septal hypertrophy as well as apical hypercontractility which may suggest apical hypertrophic cardiomyopathy. There is increased gradient at rest at peak gradient of 62 mm Hg with Valsalva going up to 120 mm Hg consistent with dynamic LVOT obstruction. Consider cardiac MRI. There is also mild left atrial enlargement and mild mitral regurgitation. The size of the ascending aorta is at the upper limits of normal at 3.7 cm and there is no gross pericardial effusion Follow-up with cardiology as scheduled (5) Prolonged QT interval: Code(s): R94.31 - Abnormal electrocardiogram [ECG] [EKG] Category: Medical Plan: Mostly due to his antipsychotics - will need close monitoring with cardiology (6) Essential hypertension: Code(s): I10 - Essential (primary) hypertension Category: Medical Plan: Reinforced low sodium diet - goal is systolic BP of at least 120 to 130 mm or less Continue Metoprolol ER 100 mg QD and Furosemide 40 mg QD (7) Vitamin D deficiency: Code(s): E55.9 - Vitamin D deficiency, unspecified Category: Medical Plan: Continue Vitamin D3 1000 units QD (8) Constipation: Code(s): K59.00 - Constipation, unspecified Category: Medical Qualifiers: Constipation type: unspecified constipation type Qualified Code(s): K59.00 - Constipation, unspecified Plan: Reinforced increased oral fluids and dietary fiber intake Continue Miralax 17 gm QD, Colace 200 mg BID and Senna Plus 2 tablets QD (9) GERD without esophagitis: Code(s): K21.9 - Gastro-esophageal reflux disease without esophagitis Category: Medical Plan: Dietary restrictions reinforced Continue Omeprazole 40 mg BID and Mylanta 10 ml TID (10) Osteoarthritis: Code(s): M19.90 - Unspecified osteoarthritis, unspecified site Category: Medical Qualifiers: Osteoarthritis location: multiple joints Osteoarthritis type: unspecified Qualified Code(s): M15.9 - Polyosteoarthritis, unspecified Plan: Involving both lower extremities Knee x-rays done last year revealed (+) OA changes in both knees He had some hardware (pin) removed from his right ankle by Dr. Meenakshi anguiano in 10/2017 Ankle x-rays done last year also revealed (+) osteoarthritis changes X-rays of both feet done previously showed (+) OA changes in both feet as well Follow up with orthopedics as scheduled He was also advised again of the option of referral to Podiatry for further management if his foot symptoms persist or get worse (11) JUDY (obstructive sleep apnea): Comment: Polysomnogram study in 2021 was negative for sleep apnea but he did have nocturnal hypoxemia. Code(s): G47.33 - Obstructive sleep apnea (adult) (pediatric) Category: Medical Plan: Patient is reminded to continue using his Oxygen when sleeping at night DAILY; he only needs to use it during the day as needed (if he feels SOB) Follow up with Sleep Medicine and with Pulmonary Medicine as scheduled (12) BPH (benign prostatic hyperplasia): Code(s): N40.0 - Benign prostatic hyperplasia without lower urinary tract symptoms Category: Medical Qualifiers: Lower urinary tract symptom presence: symptoms present Lower urinary tract symptom detail: urinary frequency Qualified Code(s): N40.1 - Benign prostatic hyperplasia with lower urinary tract symptoms; R35.0 - Frequency of micturition Plan: Continue Tamsulosin 0.4 mg Q HS Follow up with urology as scheduled (13) Hypogonadism in male: Comment: Topical testosterone Code(s): E29.1 - Testicular hypofunction Category: Medical Plan: Continue Testosterone (Androgel) 1% 2 packets transdermally OQ as instructed Follow up with urology as scheduled (14) Schizoaffective disorder: Code(s): F25.9 - Schizoaffective disorder, unspecified Category: Medical Qualifiers: Schizoaffective disorder type: bipolar Qualified Code(s): F25.0 - Schizoaffective disorder, bipolar type Plan: Continue Clozaril 75 mg QD and 100 mg Q HS and Latuda 60 mg QAM He is also on Trazodone 50 mg Q HS for sleep Follow up with psychiatry (Freeman Rodríguez) as scheduled (15) Smoker: Comment: Navid lives in a [facility] where most of the residents smoke. He states that he ends up smoking due to peer pressure. but he smokes only a few cigarettes daily. Currently is using 5 cigarettes a day. Code(s): F17.200 - Nicotine dependence, unspecified, uncomplicated Category: Social Hx Plan: He is counseled again on complete smoking cessation (16) Obesity (BMI 30-39.9): Code(s): E66.9 - Obesity, unspecified Category: Medical Plan: Reinforced diet; exercise and weight appear to be unrealistic expectations in patient at this time due to his mutliple physical and psychiatric comorbidities Plan Follow up in 4 months Orders: Orders Hemoglobin A1c 4 Months E11.9 - Type 2 diabetes mellitus without complications Comprehensive [place]. Panel Fast 4 Months E78.00 - Pure hypercholesterolemia, unspecified Lipid Panel 4 Months E78.00 - Pure hypercholesterolemia, unspecified NT Pro B Type Natriuretic Pept 4 Months R06.09 - Other forms of dyspnea UA CC w/rflx Micro + Cult 4 Months R30.0 - Dysuria Vitamin D 25-OH Total 4 Months E55.9 - Vitamin D deficiency, unspecified AMB Hemoglobin A1c 1204/ Z13.9 - Encounter for screening, unspecified Complete Blood Count Auto Diff 4 Months D64.9 - Anemia, unspecified Microalbumin, Random (w Creat) 4 Months E11.9 - Type 2 diabetes mellitus without complications TSH reflex Free T4 4 Months E78.00 - Pure hypercholesterolemia, unspecified Vitamin B12 and Folate 4 Months E53.8 - Deficiency of other specified B group vitamins Referrals Endocrinology Referral E11.9 - Type 2 diabetes mellitus without complications
[2025-09-10 11:04] VITALS: BP 130/84; PULSE 88; O2SAT 93; BMI 36.5
== END 2025-09-10 11:56 | disposition home or self-care (01) ==
LOC: HO.HMCH 10:54
PROVIDERS: PCP Internal Medicine; Visit Provider Internal Medicine
DX: E11.9 Type 2 diabetes mellitus without complications (principal); Z79.4 Long term (current) use of insulin; I42.1 Obstructive hypertrophic cardiomyopathy; F25.0 Schizoaffective disorder, bipolar type; E66.9 Obesity, unspecified; Z68.36 Body mass index [BMI] 36.0-36.9, adult; E78.00 Pure hypercholesterolemia, unspecified; I25.118 Atherosclerotic heart disease of native coronary artery with other forms of angina pectoris; R94.31 Abnormal electrocardiogram [ECG] [EKG]; I10 Essential (primary) hypertension; E55.9 Vitamin D deficiency, unspecified; K59.00 Constipation, unspecified; K21.9 Gastro-esophageal reflux disease without esophagitis; M15.9 Polyosteoarthritis, unspecified; G47.33 Obstructive sleep apnea (adult) (pediatric); N40.1 Benign prostatic hyperplasia with lower urinary tract symptoms; R35.0 Frequency of micturition; E29.1 Testicular hypofunction; F17.200 Nicotine dependence, unspecified, uncomplicated

== ENCOUNTER → 2025-09-10 10:53 | Outpatient (BNVA) | payer MEDICARE, MEDICAID, SELFPAY | PROVIDERS: PCP Internal Medicine; Visit Provider Internal Medicine | DX: E11.9 Type 2 diabetes mellitus without complications (principal); I25.118 Atherosclerotic heart disease of native coronary artery with other forms of angina pectoris; I42.1 Obstructive hypertrophic cardiomyopathy; R94.31 Abnormal electrocardiogram [ECG] [EKG]; I10 Essential (primary) hypertension; E55.9 Vitamin D deficiency, unspecified; K59.00 Constipation, unspecified; M15.9 Polyosteoarthritis, unspecified; K21.9 Gastro-esophageal reflux disease without esophagitis; G47.33 Obstructive sleep apnea (adult) (pediatric); N40.1 Benign prostatic hyperplasia with lower urinary tract symptoms; R35.0 Frequency of micturition; E29.1 Testicular hypofunction; F25.0 Schizoaffective disorder, bipolar type; F17.200 Nicotine dependence, unspecified, uncomplicated; E66.9 Obesity, unspecified; Z13.31 Encounter for screening for depression; Z13.39 Encounter for screening examination for other mental health and behavioral disorders | CPT/HCPCS: 96127; 99212 ==

== ENCOUNTER 2025-09-17 17:50 | Emergency (ER) | payer MEDICARE, MEDICAID, SELFPAY ==
--- NOTE | 2025-09-17 18:13 | ED_ITS ---
HPI - General Adult General Chief complaint: Cardiac Arrest/CPR Stated complaint: CARDIAC ARREST Time Seen by Provider: 09/17/25 18:05 Source: patient Mode of arrival: ambulatory Limitations: no limitations History of Present Illness ED Provider: Dr. Yung HPI narrative: 63-year-old male history of CAD, diabetes, HOCM, schizophrenia, suicide ideation, diabetes, hypertension presenting to ER today for cardiac arrest. [facility] at a [facility]. He was attending of the event at the [facility]. All of a sudden the patient became unresponsive with seizure-like activity. CPR was initiated at a [facility]. EMS arrived did ACLS for approximately 35 minutes prior to transportation. Patient has had an I-gel upon arrival and Miguel device doing compression prior to arrival. Related Data Home Medications ?Medication ?Instructions ?Recorded ?Confirmed aspirin 81 mg tablet,delayed 81 mg PO DAILY 11/20/24 1 11/14/24 release clozapine 25 mg tablet 75 mg PO BEDTIME 03/20/25 insulin glargine 100 unit/mL (3 15 unit subcut DAILY 0 05/27/25 09/13/25 mL) subcutaneous pen (Lantus Solostar U-100 Insulin) nitroglycerin 0.4 mg sublingual 0.4 mg sublingual Q5M PRN Opioid 06/12/25 09/13/25 tablet Overdose acetaminophen 650 mg 650 mg PO Q6H PRN Shortness Of 08/13/25 09/13/25 tablet,extended release Breath Or Wheezing aluminum-mag hydroxide-simethicone 10 ml PO Q8H PRN In digestion 08/13/25 09/13/25 200 mg-200 mg-20 mg/5 mL oral susp atorvastatin 20 mg tablet 20 mg PO BEDTIME 08/13/25 clozapine 100 mg tablet 100 mg PO BEDTIME 08/13/25 1 11/14/24 docusate sodium 100 mg capsule 100 mg PO BID 08/13/25 09/13/25 empagliflozin 10 mg tablet 5 mg PO DAILY 08/13/2505/01 (Jardiance) linagliptin 5 mg tablet 5 mg PO DAILY 08/13/2509/13 lurasidone 60 mg tablet (Latuda) 60 mg PO BEDTIME 04/0109/13/25 metoprolol succinate 100 mg 100 mg PO DAILY 08/13/25 1 11/14/24 tablet,extended release 24 hr polyethylene glycol 3350 17 17 g PO DAILY PRN Constipa tion 08/13/25 09/13/25 gram/dose oral powder (Miralax) trazodone 100 mg tablet 100 mg PO BEDTIME 08/13/25 1 11/14/24 Previous Rx's ?Medication ?Instructions ?Recorded pen needle, diabetic 32 gauge x #100 ea 11/11/24 (BD Erica 2nd Gen Pen Needle) nicotine (polacrilex) 4 mg buccal 4 mg buccal Q2H PRN Smoking 12/10/24 lozenge Cessation 30 days #108 ea sennosides 8.6 mg-docusate sodium 2 tab PO DAILY const ipation 30 12/10/24 50 mg tablet (Senna Plus) days #60 tabs albuterol sulfate 90 mcg/actuation 2 puff inhalation Q 6H PRN 01/05/25 aerosol inhaler Shortness Of Breath Or Wheez ing 30 days #1 inhaler blood sugar diagnostic (Contour #100 ea 07/01/25 Next Test Strips) blood-glucose meter (Contour Next #1 ea 07/01/25 Gen Meter) lancets 33 gauge (E-Z Ject Lancets) #100 ea 07/01/25 omeprazole 20 mg capsule,delayed 40 mg (2 x 20 mg) PO BID@0630,1630 07/20/25 release #180 caps cholecalciferol (vitamin D3) 25 25 mcg PO DAILY #30 ca ps 25 mcg (1,000 unit) capsule furosemide 40 mg tablet 40 mg PO DAILY #30 tabs 08/08 07/02 Allergies Allergy/AdvReac Type Severity Reaction Status Date / Time lithium ([place]) Allergy Severe Toxicity Verified 09/13/25 15:08 thiothixene Allergy Severe Swelling Verified 09/13/25 15:08 amoxicillin Allergy Mild Nose Bleed Verified 09/13/25 15:08 benztropine Allergy Unknown benztropine Verified 09/13/25 15:08 mesylate- unknown gabapentin (From NEURONTIN) Allergy Unknown Unknown Verified 09/13/25 15:08 fluphenazine (From Prolixin) Allergy Unknown Verified 09/13/25 15:08 metformin Allergy Anaphylaxis Verified 09/13/25 15:08 barium sulfate (BARIUM AdvReac Intermediate Nausea and Verified 09/13/25 15:08 SULFATE) Vomiting haloperidol AdvReac Intermediate Muscle Verified 09/13/25 15:08 tension in legs diphenhydramine (From AdvReac Unknown urinary Verified 09/13/25 15:08 Benadryl) retention Review of Systems Review of Systems: Unable to obtain due to patient being [facility] Past Medical History [facility] Narrative: Medical history as mentioned in HPI Medical History (Updated 09/17/25 @ 19:17 by Melva Yung DO) Diabetes mellitus HOCM (hypertrophic obstructive cardiomyopathy) Vertigo Nocturnal hypoxemia Schizoaffective disorder, bipolar type Diabetic neuropathy Type II diabetes with custodial use of insulin BPH (benign prostatic hyperplasia) Diabetes mellitus Essential hypertension Coronary artery disease Osteoarthritis GERD without esophagitis Vitamin D deficiency Congestive heart failure COVID-19 Thought disorder Constipation COPD (chronic obstructive pulmonary disease) Smoker Diabetes mellitus Obesity (BMI 30-39.9) Pure hypercholesterolemia Prolonged QT interval Aggression Hypertension CHF (congestive heart failure) Cardiac arrhythmia Myocardial infarction Surgical History History of colonoscopy History of ankle surgery History of intestinal surgery History of transurethral resection of prostate Family History Family History Father Medical history unknown Mother Medical history unknown Sister Alive and well Social History Social History Household Members: Friend(s) Household Members Other:: Room mate Housing: Apartment Housing Other:: [facility] Do you presently have visiting nurse or other home services: Yes ([facility]) Alcohol intake: current Alcohol intake frequency: holidays/special occasions only Alcohol type: beer Comment: assist with portable o2 Patient Tobacco Use Status: Former Tobacco user Tobacco use type: Cigarette Cigarette Packs Per Day: 0.5 Cigarettes Per Day: 10 Years Smoked: Many e-Cigarette/Vaping Use: Currently Using Second Hand Smoke Exposure: Yes Substance Use Type: Unknown Advance Directives Date on File: 01/14/24 service: No Current occupational status: disabled Sexual orientation: Straight/Heterosexual Cognitive needs: Yes Hearing needs: No Vision needs: Yes Physical Exam ED Exam Exam: General: Unresponsive, cyanotic appearing Head: Normacephalic, atraumatic Cardiovascular: Pulseless Respiratory: No spontaneous respiration Extremities: No limb pain or swelling, no calf tenderness Neurological: Unresponsive Skin: Cool dry Psychiatric: Unresponsive Procedures Intubation Intubation Type:: Endotracheal Tube Insertion Intubation Date:: 09/17/25 Laryngoscope: other (Glidescope) ET Tube Size: 7.5 ET Tube Uncuffed: Yes Tube Secured Depth (cm): 26 Tube Secured Location: lips Tube Placement Confirmation: visualized tube passing through cords Patient Tolerated Procedure: well Medical Decision Making Medical Decision Making MDM Narrative: This is a 60-year-old male history of diabetes hypertension, GERD, CHF, CAD presenting to ER today for evaluation of cardiac arrest. According to EMS the patient has been given 5 rounds of epinephrine EN route. Patient's remain in PEA and asystole during the cardiac arrest. Patient's arrived to our ER. Patient was transitioned over stretcher. IV access was obtained. Upon arrival the patient only had a left IO in the left tibia. Patient is noted to be cyanotic. I intubated the patient. The patient cyanosis improve afterward. Throughout the cardiac arrest the patient remains asystole and PEA Please see code sheet for additional details. Patient was given additional e pinephrine doses. Patient was also given sodium bicarb, he was also given IV calcium as well. Patient remained in cardiac arrest at this time. After additional 15 minutes of ACLS patient was pronounced at 1805 Patient received a total of 50 minutes of ACLS Suspect this is likely a cardiac event. I called the [facility] and discussed with Bibi the semiconductor processing group leader. Patient was dancing on a annual [email or web address] constitution party and drop unresponsive. He has no Next of Kin Discussed with [place] office with Pamella Osorio. The case is declined. Differential Diagnosis Differential Diagnoses: The differential diagnosis associated with the presentation includes Cardiac arrest Critical Care Time Critical Care Time Critical Care Time: Yes Total Critical Care Time: 36 Attestation: Time is exclusive of separately billable procedures. Time includes: direct patient care, patient reassessment, coordination of patient care, interpretation of data (laboratory data, pulse oximetry, arterial blood gases and chest xrays), review of patient's medical records, medical consultation and documentation of patient care. Procedures excluded from critical care time: central intravenous line placement and electrocardiography. Discharge Plan Discharge Clinical Impression: Cardiac arrest Patient Disposition:
--- NOTE | 2025-09-17 18:33 | PC.NURSE ---
This RN spoke with [facility] and are currently accepting patient for potential tissue donation. Referral # [id number] Spray Blender contact: Vincenzo
--- NOTE | 2025-09-17 19:19 | PC.NURSE ---
ME declined per Dr. Yung
--- OUTSIDE RECORDS SUMMARY | 2025-09-18 00:43 | XMS_ITS | Encounter Summary ---
Author Organization [facility] Address [address] [place] [address] Care Team Providers Care Fisher Mussel Name Role Phone Regan Hogue MD Primary Care Provider Encounter Details Date Type Department Care Team (Late st Contact Info) Description 09/09/2024 Lab Requisition [facility] - Main Lab [address] [facility] [place] [address] Freeman Cerna MD [address] Other tank cooper (current) drug therapy Social History Tobacco Use [...] DIFFERENTIAL Routine 09/09/2024 6:39 AM EST Other tank cooper (current) drug therapy CBC AND DIFFERENTIAL Routine 09/09/2024 6:39 AM EST Other tank cooper (current) drug therapy documented in this encounter Results * (ABNORMAL) CBC auto differential (09/09/2024 6:39 AM EST) [facility] Signature WBC 7.0 4.8 - 10.8 K/[facility] LAB HEMETOLOGY METHOD 09/09/2024 10:01 AM EST [facility] RBC 4.20(L) 4.50 - 5.50 M/[facility] LAB HEMETOLOGY METHOD 09/09/2024 10:01 AM [facility] LAB Hemoglobin 11.2(L) 13.5 - 17.5 g/dL LAB HEMETOLOGY METHOD 09/09/2024 10:01 AM [facility] LAB Hematocrit 37.2(L) 42.0 - 54.0 % LAB HEMETOLOGY METHOD 09/09/2024 10:01 AM [facility] LAB MCV 88.2 79.0 - 98.0 FL LAB HEMETOLOGY METHOD 09/09/2024 10:01 AM [facility] LAB MCH 26.5(L) 27.0 - 32.0 pcg LAB HEMETOLOGY METHOD 09/09/2024 10:01 AM [facility] LAB MCHC 30.1(L) 32.0 - 37.0 g/dL LAB HEMETOLOGY METHOD 09/09/2024 10:01 AM [facility] LAB RDW 15.7(H) 11.0 - 15.0 % LAB HEMETOLOGY METHOD 09/09/2024 10:01 AM [facility] LAB Platelets 147 130 - 400 K/mcL LAB HEMETOLOGY METHOD 09/09/2024 10:01 AM [facility] LAB MPV 12.8(H) 7.0 - 11.0 FL LAB HEMETOLOGY METHOD 09/09/2024 10:01 AM [facility] LAB NRBC 0.0 <1.0 % LAB HEMETOLOGY METHOD 09/09/2024 10:01 AM [facility] LAB NRBC Absolute 0.00 <0.10 K/mcL LAB HEMETOLOGY METHOD 09/09/2024 10:01 AM [facility] LAB Neutrophils Relative 72.6 % LAB HEMETOLOGY METHOD 09/09/2024 10:01 AM [facility] LAB Lymphocytes Relative 15.3 % LAB HEMETOLOGY METHOD 09/09/2024 10:01 AM [facility] LAB Monocytes Relative 8.9 % LAB HEMETOLOGY METHOD 09/09/2024 10:01 AM [facility] LAB Eosinophils Relative 2.0 % LAB HEMETOLOGY METHOD 09/09/2024 10:01 AM [facility] LAB Basophils Relative 0.6 % LAB HEMETOLOGY METHOD 09/09/2024 10:01 AM [facility] LAB Immature Granulocytes Relative 0.6 % LAB HEMETOLOGY METHOD 09/09/2024 10:01 AM [facility] LAB Neutrophils Absolute 5.08 1.50 - 7.00 K/mcL LAB HEMETOLOGY METHOD 09/09/2024 10:01 AM [facility] LAB Lymphocytes Absolute 1.07 1.00 - 5.00 K/mcL LAB HEMETOLOGY METHOD 09/09/2024 10:01 AM [facility] LAB Monocytes Absolute 0.62 0.20 - 1.00 K/mcL LAB HEMETOLOGY METHOD 09/09/2024 10:01 AM EST [facility] LAB Eosinophils Absolute 0.14 0.00 - 0.50 K/mcL LAB HEMETOLOGY METHOD 09/09/2024 10:01 AM [facility] LAB Basophils Absolute 0.04 0.00 - 0.20 K/mcL LAB HEMETOLOGY METHOD 09/09/2024 10:01 AM [facility] LAB Immature Granulocytes Absolute 0.04(H) 0.00 - 0.03 K/mcL LAB HEMETOLOGY METHOD 09/09/2024 10:01 AM [facility] LAB Blood Venous blood specimen / Unknown Venipuncture / Unknown 09/09/2024 6:39 AM EST 09/09/2024 9:46 AM EST us Freeman Cerna MD LAB BLOOD ORDERABLES Final Resul t [facility] [address] [place], [place] [address] [phone] documented in this encounter Visit Diagnoses Diagnosis Other tank cooper (current) drug therapy documented in this encounter Care Teams Fisher Mussel Relationship Specialty Start Date End Date Regan Hogue MD [address] [place] [address] Dr [address] [place] PCP - General Internal Medicine 11/12/24 documented as of this encounter
--- OUTSIDE RECORDS SUMMARY | 2025-09-18 00:43 | XMS_ITS | Encounter Summary ---
Author Organization [facility] Address [address] [place] [address] Care Team Providers Care Transformer Assembler Name Role Phone Regan Hogue MD Primary Care Provider Encounter Details Date Type Department Care Team (Late st Contact Info) Description 08/12/[address] [facility] - Main Lab [address] [place] [address] Freeman Cerna MD [address] Other intermodal dispatcher (current) drug therapy Social History Tobacco Use [...] FEE Routine 08/12/2024 9:00 AM EST Other intermodal dispatcher (current) drug therapy CBC WITH AUTO DIFFERENTIAL Routine 08/12/2024 9:00 AM EST Other intermodal dispatcher (current) drug therapy CBC AND DIFFERENTIAL Routine 08/12/2024 9:00 AM EST Other intermodal dispatcher (current) drug therapy documented in this encounter Results * (ABNORMAL) CBC auto differential (08/12/2024 9:00 AM EST) [facility] Signature WBC 6.5 4.8 - 10.8 K/[facility] LAB HEMETOLOGY METHOD 08/12/2024 11:44 AM EST [facility] LAB RBC 4.30(L) 4.50 - 5.50 M/mcL LAB HEMETOLOGY METHOD 08/12/2024 11:44 AM [facility] LAB Hemoglobin 11.6(L) 13.5 - 17.5 g/dL LAB HEMETOLOGY METHOD 08/12/2024 11:44 AM [facility] LAB Hematocrit 37.1(L) 42.0 - 54.0 % LAB HEMETOLOGY METHOD 08/12/2024 11:44 AM [facility] LAB MCV 86.7 79.0 - 98.0 FL LAB HEMETOLOGY METHOD 08/12/2024 11:44 AM [facility] LAB MCH 27.1 27.0 - 32.0 pcg LAB HEMETOLOGY METHOD 08/12/2024 11:44 AM [facility] LAB MCHC 31.3(L) 32.0 - 37.0 g/dL LAB HEMETOLOGY METHOD 08/12/2024 11:44 AM [facility] LAB RDW 15.7(H) 11.0 - 15.0 % LAB HEMETOLOGY METHOD 08/12/2024 11:44 AM [facility] LAB Platelets 121(L) 130 - 400 K/mcL LAB HEMETOLOGY METHOD 08/12/2024 11:44 AM [facility] LAB MPV 12.6(H) 7.0 - 11.0 FL LAB HEMETOLOGY METHOD 08/12/2024 11:44 AM [facility] LAB NRBC 0.0 <1.0 % LAB HEMETOLOGY METHOD 08/12/2024 11:44 AM [facility] LAB NRBC Absolute 0.00 <0.10 K/mcL LAB HEMETOLOGY METHOD 08/12/2024 11:44 AM [facility] LAB Neutrophils Relative 74.8 % LAB HEMETOLOGY METHOD 08/12/2024 11:44 AM [facility] LAB Lymphocytes Relative 13.3 % LAB HEMETOLOGY METHOD 08/12/2024 11:44 AM [facility] LAB Monocytes Relative 9.4 % LAB HEMETOLOGY METHOD 08/12/2024 11:44 AM [facility] LAB Eosinophils Relative 1.1 % LAB HEMETOLOGY METHOD 08/12/2024 11:44 AM [facility] LAB Basophils Relative 0.6 % LAB HEMETOLOGY METHOD 08/12/2024 11:44 AM [facility] LAB Immature Granulocytes Relative 0.8 % LAB HEMETOLOGY METHOD 08/12/2024 11:44 AM [facility] LAB Neutrophils Absolute 4.86 1.50 - 7.00 K/mcL LAB HEMETOLOGY METHOD 08/12/2024 11:44 AM [facility] LAB Lymphocytes Absolute 0.86(L) 1.00 - 5.00 K/mcL LAB HEMETOLOGY METHOD 08/12/2024 11:44 AM [facility] LAB Monocytes Absolute 0.61 0.20 - 1.00 K/mcL LAB HEMETOLOGY METHOD 08/12/2024 11:44 AM [facility] LAB Eosinophils Absolute 0.07 0.00 - 0.50 K/mcL LAB HEMETOLOGY METHOD 08/12/2024 11:44 AM [facility] LAB Basophils Absolute 0.04 0.00 - 0.20 K/mcL LAB HEMETOLOGY METHOD 08/12/2024 11:44 AM [facility] LAB Immature Granulocytes Absolute 0.05(H) 0.00 - 0.03 K/mcL LAB HEMETOLOGY METHOD 08/12/2024 11:44 AM [facility] LAB Blood Venous blood specimen / Unknown Venipuncture / Unknown 08/12/2024 9:00 AM EST 08/12/2024 10:29 AM EST us Freeman Cerna MD LAB BLOOD ORDERABLES Final Resul t Performing Organization Address [facility]/ZIP Co de Phone Number [facility] [address] [place] [address], * Travel phlebotomy fee (08/12/2024 9:00 AM EST) [facility] TRAVEL PHLEBOTOMY FEE Completed 08/12/2024 11:02 AM EST [facility] Blood Venous blood specimen / Unknown Venipuncture / Unknown 08/12/2024 9:00 AM EST 08/12/2024 10:29 AM EST Freeman Cerna MD LAB BLOOD ORDERABLES Final Resul t Performing Organization Address [facility] Co de Phone Number [facility] [address] [place] [address], [place] [phone] documented in this encounter Visit Diagnoses Diagnosis Other skilled nursing (current) drug therapy documented in this encounter Care Teams Transformer Assembler Relationship Specialty Start Date End Date Regan Hogue MD [address] [place] [address] Dr [address] [place] PCP - General Internal Medicine 11/12/24 documented as of this encounter
--- OUTSIDE RECORDS SUMMARY | 2025-09-18 00:46 | XMS_ITS | Encounter Summary ---
Author Organization [facility] Address [address] [place] [address] Care Team Providers Care Institutional Research Coordinator Name Role Phone Regan Hogue MD Primary Care Provider [phone] Encounter Details Date Type Department Care Team (Late st Contact Info) Description 02/23/2025 Lab Requisition [facility] - Main Lab [address] [facility] [place] [address] Freeman Cerna MD [address] Other terminal operator (current) drug therapy Social History [...] DIFFERENTIAL Routine 02/24/2025 6:34 AM EDT Other terminal operator (current) drug therapy CBC AND DIFFERENTIAL Routine 02/24/2025 6:34 AM EDT Other terminal operator (current) drug therapy documented in this encounter Results * (ABNORMAL) CBC auto differential (02/24/2025 6:34 AM EDT) WBC 8.6 4.8 - 10.8 K/[facility] LAB HEMETOLOGY METHOD 02/24/2025 8:23 AM EDT [facility] LAB RBC 4.70 4.50 - 5.50 M/[facility] LAB HEMETOLOGY METHOD 02/24/2025 8:23 AM [facility] LAB Hemoglobin 11.2(L) 13.5 - 17.5 g/dL LAB HEMETOLOGY METHOD 02/24/2025 8:23 AM [facility] LAB Hematocrit 38.4(L) 42.0 - 54.0 % LAB HEMETOLOGY METHOD 02/24/2025 8:23 AM [facility] LAB MCV 81.7 79.0 - 98.0 FL LAB HEMETOLOGY METHOD 02/24/2025 8:23 AM [facility] LAB MCH 23.8(L) 27.0 - 32.0 pcg LAB HEMETOLOGY METHOD 02/24/2025 8:23 AM [facility] LAB MCHC 29.2(L) 32.0 - 37.0 g/dL LAB HEMETOLOGY METHOD 02/24/2025 8:23 AM [facility] LAB RDW 17.6(H) 11.0 - 15.0 % LAB HEMETOLOGY METHOD 02/24/2025 8:23 AM [facility] LAB Platelets 207 130 - 400 K/mcL LAB HEMETOLOGY METHOD 02/24/2025 8:23 AM [facility] LAB MPV 12.0(H) 7.0 - 11.0 FL LAB HEMETOLOGY METHOD 02/24/2025 8:23 AM [facility] LAB NRBC 0.0 <1.0 % LAB HEMETOLOGY METHOD 02/24/2025 8:23 AM [facility] LAB NRBC Absolute 0.00 <0.10 K/mcL LAB HEMETOLOGY METHOD 02/24/2025 8:23 AM [facility] LAB Neutrophils Relative 67.7 % LAB HEMETOLOGY METHOD 02/24/2025 8:23 AM [facility] LAB Lymphocytes Relative 18.2 % LAB HEMETOLOGY METHOD 02/24/2025 8:23 AM EDT [facility] LAB Monocytes Relative 9.9 % LAB HEMETOLOGY METHOD 02/24/2025 8:23 AM EDT [facility] LAB Eosinophils Relative 3.0 % LAB HEMETOLOGY METHOD 02/24/2025 8:23 AM [facility] LAB Basophils Relative 0.7 % LAB HEMETOLOGY METHOD 02/24/2025 8:23 AM EDT [facility] LAB Immature Granulocytes Relative 0.5 % LAB HEMETOLOGY METHOD 02/24/2025 8:23 AM EDT [facility] LAB Neutrophils Absolute 5.81 1.50 - 7.00 K/mcL LAB HEMETOLOGY METHOD 02/24/2025 8:23 AM [facility] LAB Lymphocytes Absolute 1.56 1.00 - 5.00 K/mcL LAB HEMETOLOGY METHOD [facility] Monocytes Absolute 0.85 0.20 - 1.00 K/mcL LAB HEMETOLOGY METHOD 02/24/2025 8:23 AM [facility] LAB Eosinophils Absolute 0.26 0.00 - 0.50 K/mcL LAB HEMETOLOGY METHOD 02/24/2025 8:23 AM [facility] LAB Basophils Absolute 0.06 0.00 - 0.20 K/mcL LAB HEMETOLOGY METHOD 02/24/2025 8:23 AM [facility] LAB Immature Granulocytes Absolute 0.04(H) 0.00 - 0.03 K/mcL LAB HEMETOLOGY METHOD 02/24/2025 8:23 AM [facility] LAB Blood Venous blood specimen / Unknown Venipuncture / Unknown 02/24/2025 6:34 AM EDT 02/24/2025 7:50 AM EDT us Freeman Cerna MD LAB BLOOD ORDERABLES Final Resul t [facility] [address] [place] [address], documented in this encounter Visit Diagnoses Diagnosis Other terminal operator (current) drug therapy documented in this encounter Care Teams Institutional Research Coordinator Relationship Specialty Start Date End Date Regan Hogue MD [address] [place] [address] Dr [address] [place], [place] PCP - General Internal Medicine 11/12/24 documented as of this encounter
--- OUTSIDE RECORDS SUMMARY | 2025-09-18 00:46 | XMS_ITS | Encounter Summary ---
Author Organization [facility] Address [address] [place] [address] Care Team Providers Care Spinner Tender Name Role Phone Regan Hogue MD Primary Care Provider [phone] Encounter Details Date Type Department Care Team (Late st Contact Info) Description 12/30/2024 Lab Requisition [facility] - Main Lab 299 [facility] [place] [address] Freeman Cerna MD [address] Other intermodal truck driver (current) drug therapy Social [...] DIFFERENTIAL Routine 12/30/2024 11:06 AM EDT Other nursing home (current) drug therapy CBC AND DIFFERENTIAL Routine 12/30/2024 11:06 AM EDT Other nursing home (current) drug therapy documented in this encounter Results * (ABNORMAL) CBC auto differential (12/30/2024 11:06 AM EDT) WBC 7.1 4.8 - 10.8 K/[facility] LAB HEMETOLOGY METHOD 12/30/2024 12:46 PM EDT [facility] LAB RBC 4.70 4.50 - 5.50 M/[facility] LAB HEMETOLOGY METHOD 12/30/2024 12:46 PM [facility] LAB Hemoglobin 11.5(L) 13.5 - 17.5 g/dL LAB HEM[facility]OLOG[facility] Hematocrit 38.8(L) 42.0 - 54.0 % LAB HEMETOLOGY METHOD 12/30/2024 12:46 PM [facility] LAB MCV 83.3 79.0 - 98.0 FL LAB HEMETOLOGY METHOD [facility]24 [facility] MCH 24.7(L) 27.0 - 32.0 pcg LAB HEMETOLOGY METHOD 12/30/2024 12:46 PM [facility] LAB MCHC 29.6(L) 32.0 - 37.0 g/dL LAB HEMETOLOGY METHOD 12/30/2024 12:46 PM [facility] LAB RDW 16.1(H) 11.0 - 15.0 % LAB HEMETOLOGY METHOD 12/30/2024 12:46 PM [facility] LAB Platelets 183 130 - 400 K/mcL LAB HEMETOLOGY METHOD 12/30/2024 12:46 PM [facility] LAB MPV 11.9(H) 7.0 - 11.0 FL LAB HEMETOLOGY METHOD 12/30/2024 12:46 PM [facility] LAB NRBC 0.0 <1.0 % LAB HEMETOLOGY METHOD 12/30/2024 12:46 PM [facility] LAB NRBC Absolute 0.00 <0.10 K/mcL LAB HEMETOLOGY METHOD 12/30/2024 12:46 PM [facility] LAB Neutrophils Relative 78.9 % LAB HEMETOLOGY METHOD 12/30/2024 12:46 PM [facility] LAB Lymphocytes Relative 12.3 % LAB HEMETOLOGY METHOD 12/30/2024 12:46 PM EDT [facility] LAB Monocytes Relative 6.2 % LAB HEMETOLOGY METHOD [facility]/30[facility]24 [facility] Eosinophils Relative 1.4 % LAB HEMETOLOGY METHOD 12/30/2024 12:46 PM [facility] LAB Basophils Relative 0.6 % LAB HEMETOLOGY METHOD 12/30/2024 12:46 PM [facility] LAB Immature Granulocytes Relative 0.6 % LAB HEMETOLOGY METHOD 12/30/2024 12:46 PM [facility] LAB Neutrophils Absolute 5.57 1.50 - 7.00 K/mcL LAB HEMETOLOGY METHOD 12/30/2024 12:46 PM [facility] LAB Lymphocytes Absolute 0.87(L) 1.00 - 5.00 K/mcL LAB HEMETOLOGY METHOD 12/30[facility]2024 12[facility] Monocytes Absolute 0.44 0.20 - 1.00 K/mcL LAB HEMETOLOGY METHOD 12/30/2024 12:46 PM [facility] LAB Eosinophils Absolute 0.10 0.00 - 0.50 K/mcL LAB HEMETOLOGY METHOD 12/30/2024 12:46 PM [facility] LAB Basophils Absolute 0.04 0.00 - 0.20 K/mcL LAB HEMETOLOGY METHOD 12/30/2024 12:46 PM [facility] LAB Immature Granulocytes Absolute 0.04(H) 0.00 - 0.03 K/mcL LAB HEMETOLOGY METHOD 12/30/2024 12:46 PM [facility] LAB Blood Venous blood specimen / Unknown Venipuncture / Unknown 12/30/2024 11:06 AM EDT 12/30/2024 12:12 PM EDT us Freeman Cerna MD LAB BLOOD ORDERABLES Final Resul t [facility] ([facility] HOSPITAL LAB [address] [place] [address], documented in this encounter Visit Diagnoses Diagnosis Other nursing home (current) drug therapy documented in this encounter Care Teams Spinner Tender Relationship Specialty Start Date End Date Regan Hogue MD [address] [place] [address] Dr [address] [place] PCP - General Internal Medicine 11/12/24 documented as of this encounter
--- OUTSIDE RECORDS SUMMARY | 2025-09-18 00:46 | XMS_ITS | Encounter Summary ---
Author Organization [facility] Address [address] [place] [address] Care Team Providers Care Laboratory Asst Name Role Phone Regan Hogue MD Primary Care Provider Encounter Details Date Type Department Care Team (Late st Contact Info) Description 01/27/2025 Lab Requisition [facility] - Main Lab 299 [facility] [employer] [place] [address] Freeman Cerna MD [address] Other termite control service representative (current) drug therapy Social History Tobacco Use [...] Routine 01/27/2025 6:17 AM EDT Other termite control service representative (current) drug therapy CBC AND DIFFERENTIAL Routine 01/27/2025 6:17 AM EDT Other termite control service representative (current) drug therapy documented in this encounter Results * (ABNORMAL) CBC auto differential (01/27/2025 6:17 AM EDT) WBC 8.7 4.8 - 10.8 K/[facility] LAB HEMETOLOGY METHOD 01/27/2025 8:36 AM EDT [facility] LAB RBC 4.90 4.50 - 5.50 M/[facility] LAB HEMETOLOGY METHOD 01/27/2025 8:36 AM [facility] LAB Hemoglobin 11.9(L) 13.5 - 17.5 g/dL LAB HEMETOLOGY METHOD 01/27/2025 8:36 AM [facility] LAB Hematocrit 40.1(L) 42.0 - 54.0 % LAB HEMETOLOGY METHOD 01/27/2025 8:36 AM [facility] LAB MCV 82.7 79.0 - 98.0 FL LAB HEMETOLOGY METHOD 01/27/2025 8:36 AM [facility] LAB MCH 24.5(L) 27.0 - 32.0 pcg LAB HEMETOLOGY METHOD 01/27/2025 8:36 AM [facility] LAB MCHC 29.7(L) 32.0 - 37.0 g/dL LAB HEMETOLOGY METHOD 01/27/2025 8:36 AM [facility] LAB RDW 17.3(H) 11.0 - 15.0 % LAB HEMETOLOGY METHOD 01/27/2025 8:36 AM [facility] LAB Platelets 205 130 - 400 K/mcL LAB HEMETOLOGY METHOD 01/27/2025 8:36 AM [facility] LAB MPV 12.8(H) 7.0 - 11.0 FL LAB HEMETOLOGY METHOD 01/27/2025 8:36 AM [facility] LAB NRBC 0.0 <1.0 % LAB HEMETOLOGY METHOD 01/27/2025 8:36 AM [facility] LAB NRBC Absolute 0.00 <0.10 K/mcL LAB HEMETOLOGY METHOD 01/27/2025 8:36 AM [facility] LAB Neutrophils Relative 73.5 % LAB HEMETOLOGY METHOD 01/27/2025 8:36 AM [facility] LAB Lymphocytes Relative 14.6 % LAB [...] LAB BLOOD ORDERABLES Final Resul t [facility] ([facility]) HOSPITAL LAB [address] [place] [address], documented in this encounter Visit Diagnoses Diagnosis Other termite control service representative (current) drug therapy documented in this encounter Care Teams Laboratory Asst Relationship Specialty Start Date End Date Regan Hogue MD [address] [place] [address] Dr [address] [place], [place] PCP - General Internal Medicine 11/12/24 documented as of this encounter
--- OUTSIDE RECORDS SUMMARY | 2025-09-18 00:46 | XMS_ITS | Clinical Summary ---
Author Organization [address] [facility] Address [address] [place] [address] Phone Care Team Providers Care Policy Adviser Name Role Phone Regan Hogue MD Primary Care Provider Encounters Date Type Department Care Team Description 09/08/2025 Lab Requisition [facility] Lab [address] [place] [phone] Amara Trivedi NP Other long-term (current) 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 08/10/2025 Lab Requisition [facility] Lab [address] [place] [phone] Amara Trivedi NP Other long-term (current) 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 07/24/2025 Lab Requisition [facility] Lab [address] [place] [phone] Freeman Cerna MD Other long-term (current) 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 from Last 3 Months [...] Screening 09/10/2022 Depression Screening 10/08/2024 COVID-19 Vaccine (2024-2 6 season) 2025 Influenza Vaccine (#1) 2025 [...] Diagnosis Comments CBC WITH AUTO DIFFERENTIAL Routine 09/08/2025 5:30 AM EST Other long-term (current) 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 CBC AND DIFFERENTIAL Routine 09/08/2025 5:30 AM EST Other terminal operator (current) drug therapy CBC WITH AUTO DIFFERENTIAL Routine 08/11/2025 7:15 AM EST Other terminal operator (current) drug therapy CBC AND DIFFERENTIAL Routine 08/11/2025 7:15 AM EST Other terminal operator (current) drug therapy CBC WITH AUTO DIFFERENTIAL Routine 07/24/2025 9:06 AM EDT Other long-term (current) 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 CBC AND DIFFERENTIAL Routine 07/24/2025 9:06 AM EDT Other terminal operator (current) drug therapy from Last 3 Months Results * (ABNORMAL) CBC auto differential (09/08/2025 5:30 AM EST) Only the most recent of3 resultswithin the time period is included. [facility] Signature WBC 7.8 4.8 - 10.8 K/mcL LAB HEMETOLOGY METHOD 09/08/2025 10:17 AM [facility] LAB RBC 4.70 4.50 - 5.50 M/mcL LAB HEMETOLOGY METHOD 09/08/2025 10:17 AM [facility] LAB Hemoglobin 12.2(L) 13.5 - 17.5 g/dL LAB HEMETOLOGY METHOD 09/08/2025 10:17 AM [facility] LAB Hematocrit 38.9(L) 42.0 - 54.0 % LAB HEMETOLOGY METHOD 09/08/2025 10:17 AM [facility] LAB MCV 83.1 79.0 - 98.0 FL LAB HEMETOLOGY METHOD 09/08/2025 10:17 AM [facility] LAB MCH 26.1(L) 27.0 - 32.0 pcg LAB HEMETOLOGY METHOD 09/08/2025 10:17 AM [facility] LAB MCHC 31.4(L) 32.0 - 37.0 g/dL LAB HEMETOLOGY METHOD 09/08/2025 10:17 AM [facility] LAB RDW 16.2(H) 11.0 - 15.0 % LAB HEMETOLOGY METHOD 09/08/2025 10:17 AM [facility] LAB Platelets 163 130 - 400 K/mcL LAB HEMETOLOGY METHOD 09/08/2025 10:17 AM [facility] LAB MPV 13.3(H) 7.0 - 11.0 FL LAB HEMETOLOGY METHOD 09/08/2025 10:17 AM [facility] LAB NRBC 0.0 <1.0 % LAB HEMETOLOGY METHOD 09/08/2025 10:17 AM [facility] LAB NRBC Absolute 0.00 <0.10 K/mcL LAB HEMETOLOGY METHOD 09/08/2025 10:17 AM [facility] LAB Neutrophils Relative 72.6 % LAB HEMETOLOGY METHOD 09/08/2025 10:17 AM [facility] LAB Lymphocytes Relative 16.1 % LAB HEMETOLOGY METHOD 09/08/2025 10:17 AM [facility] LAB Monocytes Relative 8.6 % LAB HEMETOLOGY METHOD 09/08/2025 10:17 AM [facility] LAB Eosinophils Relative 1.8 % LAB HEMETOLOGY METHOD 09/08/2025 10:17 AM [facility] LAB Basophils Relative 0.6 % LAB HEMETOLOGY METHOD 09/08/2025 10:17 AM [facility] LAB Immature Granulocytes Relative 0.3 % LAB HEMETOLOGY METHOD 09/08/2025 10:17 AM [facility] LAB Neutrophils Absolute 5.63 1.50 - 7.00 K/mcL LAB HEMETOLOGY METHOD 09/08/2025 10:17 AM [facility] LAB Lymphocytes Absolute 1.25 1.00 - 5.00 K/mcL LAB HEMETOLOGY METHOD 09/08/2025 10:17 AM [facility] LAB Monocytes Absolute 0.67 0.20 - 1.00 K/mcL LAB HEMETOLOGY METHOD 09/08/2025 10:17 AM [facility] LAB Eosinophils Absolute 0.14 0.00 - 0.50 K/mcL LAB HEMETOLOGY METHOD 09/08/2025 10:17 AM [facility] LAB Basophils Absolute 0.05 0.00 - 0.20 K/mcL LAB HEMETOLOGY METHOD 09/08/2025 10:17 AM [facility] LAB Immature Granulocytes Absolute 0.02 0.00 - 0.03 K/mcL LAB HEMETOLOGY METHOD 09/08/2025 10:17 AM EST [facility] LAB Blood Venous blood specimen / Unknown Venipuncture / Unknown 09/08/2025 5:30 AM EST 09/08/2025 10:16 AM EST us Amara Farooq INSURANCE CLAIMS REPRESENTATIVE LAB BLOOD ORDERABLES Final R esult [facility] ([facility] LAB [address] [place] [address], [place] [phone] from Last 3 Months Insurance MEDICAID - [place] MEDICARE [employer] MEDICARE Care Teams Policy Adviser Relationship Specialty Start Date End Date Regan Hogue MD [address] [place] [address] [address] [place] PCP - General Internal Medicine 11/12/24
--- OUTSIDE RECORDS SUMMARY | 2025-09-18 00:46 | XMS_ITS | Encounter Summary ---
Author Organization [facility] Address [address] [place] [address] Care Team Providers Care Manager Background Name Role Phone Regan Hogue MD Primary Care Provider Encounter Details Date Type Department Care Team (Late st Contact Info) Description 03/24/2025 Lab Requisition [facility] - Main Lab [address] [place] [address] Freeman Cerna MD [address] Other intermission coordinator (current) drug therapy Social History Tobacco Use [...] DIFFERENTIAL Routine 03/24/2025 8:28 AM EDT Other intermission coordinator (current) drug therapy CBC AND DIFFERENTIAL Routine 03/24/2025 8:28 AM EDT Other intermission coordinator (current) drug therapy documented in this encounter Results * (ABNORMAL) CBC auto differential (03/24/2025 8:28 AM EDT) WBC 9.6 4.8 - 10.8 K/[facility] LAB HEMETOLOGY METHOD 03/24/2025 10:53 AM EDT [facility] ([facility] LAB RBC 4.30(L) 4.50 - 5.50 M/[facility] LAB HEMETOLOGY METHOD 03/24/2025 10:[address] [facility] LAB Hemoglobin 10.1(L) 13.5 - 17.5 g/dL LAB HEMETOLOGY METHOD 03/24/2025 10:[address] [facility] LAB Hematocrit 35.3(L) 42.0 - 54.0 % LAB HEMETOLOGY METHOD 03/24/2025 10:[address] [facility] LAB MCV 82.3 79.0 - 98.0 FL LAB HEMETOLOGY METHOD 03/24/2025 10:[address] [facility] LAB MCH 23.5(L) 27.0 - 32.0 pcg LAB HEMETOLOGY METHOD 03/24/2025 10:[address] [facility] LAB MCHC 28.6(L) 32.0 - 37.0 g/dL LAB HEMETOLOGY METHOD 03/24/2025 10:[address] [facility] LAB RDW 18.7(H) 11.0 - 15.0 % LAB HEMETOLOGY METHOD 03/24/2025 10:[address] [facility] LAB Platelets 139 130 - 400 K/mcL LAB HEMETOLOGY METHOD 03/24/2025 10:[address] [facility] LAB MPV LAB HEMETOLOGY METHOD 03/24/2025 10:[address] [facility] LAB Comment:Not Measured NRBC 0.0 <1.0 % LAB HEMETOLOGY METHOD 03/24/2025 10:[address] [facility] LAB NRBC Absolute 0.00 <0.10 K/mcL LAB HEMETOLOGY METHOD 03/24/2025 10:[address] [facility] LAB Neutrophils Relative 77.5 % LAB HEMETOLOGY METHOD 03/24/2025 10:[address] [facility] LAB Lymphocytes Relative 11.7 % LAB HEMETOLOGY METHOD 03/24/2025 10:[address] [facility] LAB Monocytes Relative 9.8 % LAB HEMETOLOGY METHOD 03/24/2025 10:53 AM EDT [facility] LAB Eosinophils Relative 0.2 % LAB HEMETOLOGY METHOD 03/24/2025 10:53 AM EDT [facility] LAB Basophils Relative 0.1 % LAB HEMETOLOGY METHOD 03/24/2025 10:53 AM EDT [facility] LAB Immature Granulocytes Relative 0.7 % LAB HEMETOLOGY METHOD 03/24/2025 10:53 AM EDT [facility] LAB Neutrophils Absolute 7.39(H) 1.50 - 7.00 K/mcL LAB HEMETOLOGY METHOD 03/24/2025 10:[address] [facility] LAB Lymphocytes Absolute 1.12 1.00 - 5.00 K/mcL LAB HEMETOLOGY METHOD 03/24/2025 10:53 AM EDT [facility] LAB Monocytes Absolute 0.94 0.20 - 1.00 K/mcL LAB HEMETOLOGY METHOD 03/24/2025 10:53 AM T [facility] LAB Eosinophils Absolute 0.02 0.00 - 0.50 K/mcL LAB HEMETOLOGY METHOD 03/24/2025 10:53 [facility] Basophils Absolute 0.01 0.00 - 0.20 K/mcL LAB HEMETOLOGY METHOD 03/24/2025 10:53 AM EDT [facility] LAB Immature Granulocytes Absolute 0.07(H) 0.00 - 0.03 K/mcL LAB HEMETOLOGY METHOD 03/24/2025 10:[address] [facility] LAB Blood Venous blood specimen / Unknown Venipuncture / Unknown 03/24/2025 8:28 AM EDT 03/24/2025 10:22 AM EDT us Freeman Cerna MD LAB BLOOD ORDERABLES Final Resul t [facility] ([facility]) HOSPITAL LAB [address] [place] [address], documented in this encounter Visit Diagnoses Diagnosis Other intermission coordinator (current) drug therapy documented in this encounter Care Teams Manager Background Relationship Specialty Start Date End Date Regan Hogue MD [address] [place] [address] Dr [address] [place], [place] PCP - General Internal Medicine 11/12/24 documented as of this encounter
--- OUTSIDE RECORDS SUMMARY | 2025-09-18 00:46 | XMS_ITS | Encounter Summary ---
Author Organization [facility] Address [address] [place] [address] Care Team Providers Care Oceanographer Physical Name Role Phone Regan Hogue MD Primary Care Provider [phone] Encounter Details Date Type Department Care Team (Late st Contact Info) Description 09/08/[address] [facility] - Main Lab [address] [facility] [place] [address] Amara Trivedi NP [address] [place] [address] Other press tender long goods (current) drug therapy Social History Tobacco Use [...] DIFFERENTIAL Routine 09/08/2025 5:30 AM EST Other press tender long goods (current) drug therapy CBC AND DIFFERENTIAL Routine 09/08/2025 5:30 AM EST Other press tender long goods (current) drug therapy documented in this encounter Results * (ABNORMAL) CBC auto differential (09/08/2025 5:30 AM EST) WBC 7.8 4.8 - 10.8 K/[facility] LAB HEMETOLOGY METHOD 09/08/2025 10:17 AM EST [facility] LAB RBC 4.70 4.50 - 5.50 M/[facility] LAB HEMETOLOGY METHOD 09/08/2025 10:17 AM [facility] LAB Hemoglobin 12.2(L) 13.5 - 17.5 g/dL LAB HEMETOLOGY METHOD 09/08/2025 10:17 AM [facility] LAB Hematocrit 38.9(L) 42.0 - 54.0 % LAB HEMETOLOGY METHOD 09/08/2025 10:17 AM [facility] LAB MCV 83.1 79.0 - 98.0 FL LAB HEMETOLOGY METHOD 09/08/2025 10:17 AM [facility] LAB MCH 26.1(L) 27.0 - 32.0 pcg LAB HEMETOLOGY METHOD 09/08/2025 10:17 AM [facility] LAB MCHC 31.4(L) 32.0 - 37.0 g/dL LAB HEMETOLOGY METHOD 09/08/2025 10:17 AM [facility] LAB RDW 16.2(H) 11.0 - 15.0 % LAB HEMETOLOGY METHOD 09/08/2025 10:17 AM [facility] LAB Platelets 163 130 - 400 K/mcL LAB HEMETOLOGY METHOD 09/08/2025 10:17 AM [facility] LAB MPV 13.3(H) 7.0 - 11.0 FL LAB HEMETOLOGY METHOD 09/08/2025 10:17 AM [facility] LAB NRBC 0.0 <1.0 % LAB HEMETOLOGY METHOD 09/08/2025 10:17 AM [facility] LAB NRBC Absolute 0.00 <0.10 K/mcL LAB HEMETOLOGY METHOD 09/08/2025 10:17 AM [facility] LAB Neutrophils Relative 72.6 % LAB HEMETOLOGY METHOD 09/08/2025 10:17 AM [facility] LAB Lymphocytes Relative 16.1 % LAB HEMETOLOGY METHOD 09/08/2025 10:17 AM [facility] LAB Monocytes Relative 8.6 % LAB HEMETOLOGY METHOD 09/08/2025 10:17 AM [facility] LAB Eosinophils Relative 1.8 % LAB HEMETOLOGY METHOD 09/08/2025 10:17 AM [facility] LAB Basophils Relative 0.6 % LAB HEMETOLOGY METHOD 09/08/2025 10:17 AM [facility] LAB Immature Granulocytes Relative 0.3 % LAB HEMETOLOGY METHOD 09/08/2025 10:17 AM [facility] LAB Neutrophils Absolute 5.63 1.50 - 7.00 K/mcL LAB HEMETOLOGY METHOD 09/08/2025 10:17 AM [facility] LAB Lymphocytes Absolute 1.25 1.00 - 5.00 K/mcL LAB HEMETOLOGY METHOD 09/08/2025 10:17 AM [facility] LAB Monocytes Absolute 0.67 0.20 - 1.00 K/mcL LAB HEMETOLOGY METHOD 09/08/2025 10:17 AM [facility] LAB Eosinophils Absolute 0.14 0.00 - 0.50 K/mcL LAB HEMETOLOGY METHOD 09/08/2025 10:17 AM [facility] LAB Basophils Absolute 0.05 0.00 - 0.20 K/mcL LAB HEMETOLOGY METHOD 09/08/2025 10:17 AM [facility] LAB Immature Granulocytes Absolute 0.02 0.00 - 0.03 K/mcL LAB HEMETOLOGY METHOD 09/08/2025 10:17 AM [facility] LAB Blood Venous blood specimen / Unknown Venipuncture / Unknown 09/08/2025 5:30 AM EST 09/08/2025 10:16 AM EST us Amara Trivedi NP LAB BLOOD ORDERABLES Final R esult [facility] LAB [address] [place], [place] [address] [phone] documented in this encounter Visit Diagnoses Diagnosis Other custodial (current) drug therapy documented in this encounter Care Teams Oceanographer Physical Relationship Specialty Start Date End Date Regan Hogue MD [address] [place] [address] Dr [address] [place], [place] PCP - General Internal Medicine 11/12/24 documented as of this encounter
--- OUTSIDE RECORDS SUMMARY | 2025-09-18 00:46 | XMS_ITS | Encounter Summary ---
Author Organization [facility] Address [address] [place] [address] Care Team Providers Care Granite Polisher Name Role Phone Regan Hogue MD Primary Care Provider Encounter Details Date Type Department Care Team (Late st Contact Info) Description 07/24/2025 Lab Requisition [facility] - Main Lab [address] [facility] [place] [address] Freeman Cerna MD [address] Other window/distribution clerk (current) drug therapy Social History Tobacco Use [...] DIFFERENTIAL Routine 07/24/2025 9:06 AM EDT Other window/distribution clerk (current) drug therapy CBC AND DIFFERENTIAL Routine 07/24/2025 9:06 AM EDT Other window/distribution clerk (current) drug therapy documented in this encounter Results * (ABNORMAL) CBC auto differential (07/24/2025 9:06 AM EDT) WBC 7.6 4.8 - 10.8 K/[facility] LAB HEMETOLOGY METHOD 07/24/2025 10:02 AM EDT [facility] ([facility] LAB RBC 4.70 4.50 - 5.50 M/[facility] LAB HEMETOLOGY METHOD 07/24/2025 10:02 AM [facility] LAB Hemoglobin 11.5(L) 13.5 - 17.5 g/dL LAB HEMETOLOGY METHOD 07/24/2025 10:02 AM [facility] LAB Hematocrit 37.8(L) 42.0 - 54.0 % LAB HEMETOLOGY METHOD 07/24/2025 10:02 AM [facility] LAB MCV 81.3 79.0 - 98.0 FL LAB HEMETOLOGY METHOD 07/24/2025 10:02 AM [facility] LAB MCH 24.7(L) 27.0 - 32.0 pcg LAB HEMETOLOGY METHOD 07/24/2025 10:02 AM [facility] LAB MCHC 30.4(L) 32.0 - 37.0 g/dL LAB HEMETOLOGY METHOD 07/24/2025 10:02 AM [facility] LAB RDW 18.2(H) 11.0 - 15.0 % LAB HEMETOLOGY METHOD 07/24/2025 10:02 AM [facility] LAB Platelets 136 130 - 400 K/mcL LAB HEMETOLOGY METHOD 07/24/2025 10:02 AM [facility] LAB MPV LAB HEMETOLOGY METHOD 07/24/2025 10:02 AM [facility] LAB Comment:Not Measured NRBC 0.0 <1.0 % LAB HEMETOLOGY METHOD 07/24/2025 10:02 AM [facility] LAB NRBC Absolute 0.00 <0.10 K/mcL LAB HEMETOLOGY METHOD 07/24/2025 10:02 AM [facility] LAB Neutrophils Relative 78.3 % LAB HEMETOLOGY METHOD 07/24/2025 10:02 AM [facility] LAB Lymphocytes Relative 11.5 % LAB HEMETOLOGY METHOD 07/24/2025 10:02 AM [facility] LAB Monocytes Relative 7.6 % LAB HEMETOLOGY METHOD 07/24/2025 10:02 AM EDT [facility] LAB Eosinophils Relative 1.6 % LAB HEMETOLOGY METHOD 07/24/2025 10:02 AM [facility] LAB Basophils Relative 0.5 % LAB HEMETOLOGY METHOD 07/24/2025 10:02 AM EDT [facility] LAB Immature Granulocytes Relative 0.5 % LAB HEMETOLOGY METHOD 07/24/2025 10:02 AM EDT [facility] LAB Neutrophils Absolute 5.96 1.50 - 7.00 K/mcL LAB [facility]EMETOLOGY [facility]25 [facility] Lymphocytes Absolute 0.88(L) 1.00 - 5.00 K/mcL LAB HEMETOLOGY METHOD 07/24[facility]2025 10[facility] Monocytes Absolute 0.58 0.20 - 1.00 K/mcL LAB HEMETOLOGY METHOD 07/24/2025 10:02 AM [facility] LAB Eosinophils Absolute 0.12 0.00 - 0.50 K/mcL LAB HEMETOLOGY METHOD 07/24/2025 10:02 AM [facility] LAB Basophils Absolute 0.04 0.00 - 0.20 K/mcL LAB HEMETOLOGY METHOD 07/24/2025 10[facility] Immature Granulocytes Absolute 0.04(H) 0.00 - 0.03 K/mcL LAB HEMETOLOGY METHOD 07/24/2025 10:02 AM [facility] LAB Blood Venous blood specimen / Unknown Venipuncture / Unknown 07/24/2025 9:06 AM EDT 07/24/2025 9:47 AM EDT us Freeman Cerna MD LAB BLOOD ORDERABLES Final Resul t [facility]) HOSPITAL LAB [address] [place] [address], documented in this encounter Visit Diagnoses Diagnosis Other window/distribution clerk (current) drug therapy documented in this encounter Care Teams Granite Polisher Relationship Specialty Start Date End Date Regan Hogue MD [address] [place] [address] [address] [place], [place] PCP - General Internal Medicine 11/12/24 documented as of this encounter
--- OUTSIDE RECORDS SUMMARY | 2025-09-18 00:46 | XMS_ITS | Encounter Summary ---
Author Organization [facility] Address [address] [place] [address] Care Team Providers Care Seed Mill Superintendent Name Role Phone Regan Hogue MD Primary Care Provider Encounter Details Date Type Department Care Team (Late st Contact Info) Description 10/07/2024 Lab Requisition [facility] - Main Lab [address] [facility] [place] [address] Freeman Cerna MD [address] Other regional intermodal truck driver (current) drug therapy Social [...] DIFFERENTIAL Routine 10/07/2024 7:40 AM EST Other regional intermodal truck driver (current) drug therapy CBC AND DIFFERENTIAL Routine 10/07/2024 7:40 AM EST Other regional intermodal truck driver (current) drug therapy documented in this encounter Results * (ABNORMAL) CBC auto differential (10/07/2024 7:40 AM EST) WBC 8.0 4.8 - 10.8 K/[facility] LAB HEMETOLOGY METHOD 10/07/2024 12:19 PM EST [facility] LAB RBC 4.20(L) 4.50 - 5.50 M/[facility] LAB HEMETOLOGY METHOD 10/07/2024 12:19 PM [facility] LAB Hemoglobin 11.1(L) 13.5 - 17.5 g/dL LAB HEMETOLOGY METHOD 10/07/2024 12:19 PM [facility] LAB Hematocrit 36.7(L) 42.0 - 54.0 % LAB HEMETOLOGY METHOD 10/07/2024 12:19 PM [facility] LAB MCV 87.0 79.0 - 98.0 FL LAB HEMETOLOGY METHOD 10/07/2024 12:19 PM [facility] LAB MCH 26.3(L) 27.0 - 32.0 pcg LAB HEMETOLOGY METHOD 10/07/2024 12:19 PM [facility] LAB MCHC 30.2(L) 32.0 - 37.0 g/dL LAB HEMETOLOGY METHOD 10/07/2024 12:19 PM [facility] LAB RDW 15.3(H) 11.0 - 15.0 % LAB HEMETOLOGY METHOD 10/07/2024 12:19 PM [facility] LAB Platelets 160 130 - 400 K/mcL LAB HEMETOLOGY METHOD 10/07/2024 12:19 PM [facility] LAB MPV 12.9(H) 7.0 - 11.0 FL LAB HEMETOLOGY METHOD 10/07/2024 12:19 PM [facility] LAB NRBC 0.0 <1.0 % LAB HEMETOLOGY METHOD 10/07/2024 12:19 PM [facility] LAB NRBC Absolute 0.00 <0.10 K/mcL LAB HEMETOLOGY METHOD 10/07/2024 12:19 PM [facility] LAB Neutrophils Relative 72.5 % LAB HEMETOLOGY METHOD 10/07/2024 12:19 PM [facility] LAB Lymphocytes Relative 16.9 % LAB HEMETOLOGY METHOD 10/07/2024 12:19 PM [facility] LAB Monocytes Relative 7.4 % LAB HEMETOLOGY METHOD 10/07/2024 12:19 PM EST [facility] LAB Eosinophils Relative 2.1 % LAB HEMETOLOGY METHOD 10/07/2024 12:19 PM [facility] LAB Basophils Relative 0.6 % LAB HEMETOLOGY METHOD 10/07/2024 12:19 PM [facility] LAB Immature Granulocytes Relative 0.5 % LAB HEMETOLOGY METHOD 10/07/2024 12:19 PM [facility] LAB Neutrophils Absolute 5.78 1.50 - 7.00 K/mcL LAB HEMETOLOGY METHOD 10/07/2024 12:19 PM [facility] LAB Lymphocytes Absolute 1.35 1.00 - 5.00 K/mcL LAB HEMETOLOGY METHOD 10/07/2024 12:19 PM [facility] LAB Monocytes Absolute 0.59 0.20 - 1.00 K/mcL LAB HEMETOLOGY METHOD 10/07/2024 12:19 PM EST [facility] LAB Eosinophils Absolute 0.17 0.00 - 0.50 K/mcL LAB HEMETOLOGY METHOD 10/07/2024 12:19 PM [facility] LAB Basophils Absolute 0.05 0.00 - 0.20 K/mcL LAB HEMETOLOGY METHOD 10/07/2024 12:19 PM [facility] LAB Immature Granulocytes Absolute 0.04(H) 0.00 - 0.03 K/mcL LAB HEMETOLOGY METHOD 10/07/2024 12:19 PM [facility] LAB Blood Venous blood specimen / Unknown Venipuncture / Unknown 10/07/2024 7:40 AM EST 10/07/2024 11:28 AM EST us Freeman Cerna MD LAB BLOOD ORDERABLES Final Resul t [facility] LAB [address] [place], [place] [address] [phone] documented in this encounter Visit Diagnoses Diagnosis Other jail (current) drug therapy documented in this encounter Care Teams Seed Mill Superintendent Relationship Specialty Start Date End Date Regan Hogue MD [address] [place] [address] Dr [address] RANDALL Goodwin PCP - General Internal Medicine 11/12/24 documented as of this encounter
--- OUTSIDE RECORDS SUMMARY | 2025-09-18 00:46 | XMS_ITS | Encounter Summary ---
Author Organization [facility] Address [address] [place] [address] Care Team Providers Care Sales Service Route Manager Name Role Phone Regan Hogue MD Primary Care Provider Encounter Details Date Type Department Care Team (Late st Contact Info) Description 08/10/2025 Lab Requisition [facility] [address] [place] [address] Amara Trivedi NP [address] [place] [address] Other termite control service representative (current) drug [...] DIFFERENTIAL Routine 08/11/2025 7:15 AM EST Other termite control service representative (current) drug therapy CBC AND DIFFERENTIAL Routine 08/11/2025 7:15 AM EST Other termite control service representative (current) drug therapy documented in this encounter Results * (ABNORMAL) CBC auto differential (08/11/2025 7:15 AM EST) WBC 9.4 4.8 - 10.8 K/[facility] LAB HEMETOLOGY METHOD 08/11/2025 1:17 PM EST [facility] RBC 4.10(L) 4.50 - 5.50 M/[facility] LAB HEMETOLOGY METHOD 08/11/2025 1:17 PM [facility] LAB Hemoglobin 10.6(L) 13.5 - 17.5 g/dL LAB HEMETOLOGY METHOD 08/11/2025 1:17 PM [facility] LAB Hematocrit 35.5(L) 42.0 - 54.0 % LAB HEMETOLOGY METHOD 08/11/2025 1:17 PM [facility] LAB MCV 86.0 79.0 - 98.0 FL LAB HEMETOLOGY METHOD 08/11/2025 1:17 PM [facility] LAB MCH 25.7(L) 27.0 - 32.0 pcg LAB HEMETOLOGY METHOD 08/11/2025 1:17 PM [facility] LAB MCHC 29.9(L) 32.0 - 37.0 g/dL LAB HEMETOLOGY METHOD 08/11/2025 1:17 PM [facility] LAB RDW 19.5(H) 11.0 - 15.0 % LAB HEMETOLOGY METHOD 08/11/2025 1:17 PM [facility] LAB Platelets 138 130 - 400 K/mcL LAB HEMETOLOGY METHOD 08/11/2025 1:17 PM [facility] LAB MPV 12.3(H) 7.0 - 11.0 FL LAB HEMETOLOGY METHOD 08/11/2025 1:17 PM [facility] LAB NRBC 0.0 <1.0 % LAB HEMETOLOGY METHOD 08/11/2025 1:17 PM [facility] LAB NRBC Absolute 0.00 <0.10 K/mcL LAB HEMETOLOGY METHOD 08/11/2025 1:17 PM [facility] LAB Neutrophils Relative 78.4 % LAB HEMETOLOGY METHOD 08/11/2025 1:17 PM [facility] LAB Lymphocytes Relative 12.7 % LAB HEMETOLOGY METHOD 08/11/2025 1:17 PM [facility] LAB Monocytes Relative 7.4 % LAB HEMETOLOGY METHOD 08/11/2025 1:17 PM EST [facility] LAB Eosinophils Relative 0.6 % LAB HEMETOLOGY METHOD 08/11/2025 1:17 PM [facility] LAB Basophils Relative 0.3 % LAB HEMETOLOGY METHOD 08/11/2025 1:17 PM [facility] LAB Immature Granulocytes Relative 0.6 % LAB HEMETOLOGY METHOD 08/11/2025 1:17 PM [facility] LAB Neutrophils Absolute 7.34(H) 1.50 - 7.00 K/mcL LAB HEMETOLOGY METHOD 08/11/2025 1:17 PM [facility] LAB Lymphocytes Absolute 1.19 1.00 - 5.00 K/mcL LAB HEMETOLOGY METHOD 08/11/2025 1:17 PM [facility] LAB Monocytes Absolute 0.69 0.20 - 1.00 K/mcL LAB HEMETOLOGY METHOD 08/11/2025 1:17 PM [facility] LAB Eosinophils Absolute 0.06 0.00 - 0.50 K/mcL LAB HEMETOLOGY METHOD 08/11/2025 1:17 PM [facility] LAB Basophils Absolute 0.03 0.00 - 0.20 K/mcL LAB HEMETOLOGY METHOD 08/11/2025 1:17 PM [facility] LAB Immature Granulocytes Absolute 0.06(H) 0.00 - 0.03 K/mcL LAB HEMETOLOGY METHOD 08/11/2025 1:17 PM [facility] LAB Blood Venous blood specimen / Unknown Venipuncture / Unknown 08/11/2025 7:15 AM EST 08/11/2025 10:02 AM EST us Amara Trivedi NP LAB BLOOD ORDERABLES Final R esult [facility] LAB [address] [place] [address], documented in this encounter Visit Diagnoses Diagnosis 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
--- OUTSIDE RECORDS SUMMARY | 2025-09-18 00:46 | XMS_ITS | Encounter Summary ---
Author Organization [facility] Address [address] [place] [address] Care Team Providers Care Wire Winding Machine Operator Name Role Phone Regan Hogue MD Primary Care Provider Encounter Details Date Type Department Care Team (Late st Contact Info) Description 12/02/2024 Lab Requisition [facility] - Main Lab [address] [facility] [place] [address] Freeman Cerna MD [address] Other terminal computer operator (current) drug [...] of this encounter Visit Diagnoses Diagnosis Other penitentiary (current) drug therapy documented in this encounter Care Teams Wire Winding Machine Operator Relationship Specialty Start Date End Date Regan Hogue MD [address] [place] [address] Dr [address] [place] [address] PCP - General Internal Medicine 11/12/24 documented as of this encounter
[2025-09-22 10:49] LABS: Glucose, Whole Blood 248 mg/dL (60-115)
== END 2025-09-17 20:18 | disposition expired ==
LOC: HO.ED 09-18 00:41
PROVIDERS: Emergency Provider Student in an Organized Health Care Education/Training Program; PCP Internal Medicine
DX: I46.9 Cardiac arrest, cause unspecified (principal); I25.10 Atherosclerotic heart disease of native coronary artery without angina pectoris
CPT/HCPCS: 31500; 82947; 96374; 96375; 99281; 99285; 99291; J0168; J0618